=== PATIENT | female | born 1950 | race Caucasian/White ===

== ENCOUNTER 2017-07-02 09:10 | Emergency (ER) | payer MEDICARE, BC, SELFPAY ==
[2017-07-02 09:12] VITALS: BP 189/95; PULSE 111; RESP 28; TEMP 36.6; O2SAT 96; BMI 22.3
--- NOTE | 2017-07-02 09:22 | XR_ITS ---
XR chest 2V COMPARISON: None HISTORY: Chest pain TECHNIQUE: PA and lateral chest FINDINGS: The lung mann are well expanded and appear clear of infiltrate. The cardiac silhouette and vascularity are normal and is no pleural fluid. There are moderate multilevel degenerative changes of the mid and lower thoracic spine. IMPRESSION: Nonacute chest findings
[2017-07-02 09:40] VITALS: PULSE 103; PULSE 108
[2017-07-02 09:42] LABS: Basophils % 0.3 % (0.1-2.0); Eosinophils # 0.3 K/mm3 (0.0-0.4); Eosinophils % 2.5 % (0.1-12.0); Hematocrit 43.8 % (37.0-47.0); Lymphocytes # 1.3 K/mm3 (0.7-4.5); Mean Corpuscular HGB Conc 34.3 g/dL (31.8-35.4); Mean Corpuscular Volume 84.7 fl (81-99); Mean Platelet Volume 7.9 fl (7.4-10.4); Monocytes # 0.6 K/mm3 (0.1-1.0); Monocytes % 5.1 % (1.7-9.3); Neutrophils % 80.2 % (37.0-80.0); Platelet Count 211 K/mm3 (142-424); Red Blood Count 5.18 M/mm3 (4.20-5.40); Red Cell Distribution Width 12.5 % (11.5-17.5); White Blood Count 11.2 K/mm3 (4.8-10.8)
[2017-07-02 10:01] LABS: Lactic Acid 2.3 mmol/L (0.4-2.0)
[2017-07-02 10:03] LABS: Alanine Aminotransferase 33 U/L (12-78); Albumin Level 4.2 gm/dL (3.4-5.0); Albumin/Globulin Ratio 0.9 (1.1-1.8); Alkaline Phosphatase 97 U/L (46-116); Anion Gap 13.9 mEq/L (5-15); Aspartate Amino Transferase 22 U/L (15-37); Bilirubin,Total 0.5 mg/dL (0.2-1.0); Blood Urea Nitrogen 11 mg/dL (7-18); Calcium 9.6 mg/dL (8.5-10.1); Carbon Dioxide 28 mmol/L (21.0-32.0); Chloride 102 mmol/L (98-107); Creatine Kinase 168 U/L (26-192); Creatine Kinase MB 1.7 mg/ml (0.0-3.6); Creatinine Clearance Estimated 52 mL/min (0-300); Estimated Glomerular Filt Rate 63 ml/min (>60); GFR (African American) 76 ML/MIN (>60); Globulin 4.6 gm/dl (1.3-3.2); Glucose 201 mg/dL (74-106); Potassium 3.9 mmoL/L (3.5-5.1); Sodium 140 mmol/L (136-145); Total Protein,Serum 8.8 gm/dL (6.4-8.2); Troponin I < 0.02 ng/ml (0.00-0.06)
--- NOTE | 2017-07-02 10:06 | HMH.EDSOB ---
ED Disposition Clinical Impression: Reactive airway disease with wheezing Qualifiers: Asthma severity: moderate Asthma persistence: persistent Asthma complication type: uncomplicated Qualified Code(s): J45.40 - Moderate persistent asthma, uncomplicated Acute bronchitis Qualifiers: Bronchitis organism: unspecified organism Qualified Code(s): J20.9 - Acute bronchitis, unspecified Diabetes mellitus Qualifiers: Diabetes mellitus type: type 2 Diabetes mellitus custodial insulin use: unspecified terminal supervisor insulin use status Diabetes mellitus complication status: with unspecified complications Qualified Code(s): E11.8 - Type 2 diabetes mellitus with unspecified complications Hypertension Qualifiers: Hypertension type: unspecified secondary hypertension Qualified Code(s): I15.9 - Secondary hypertension, unspecified Disposition: Home, Self-Care Condition on Discharge: Good Instructions: Diabetes, General (Alternative Therapy), High Blood Pressure (Hypertension) (Alternative Therapy), Type 2 Diabetes, DI for Reactive Airway Disease-Adult Additional Instructions: Please follow-up with your family physician next 2 days for additional evaluation, keep record with your resting blood pressure values, read at home, while at rest, take medications as directed. Prescriptions: Albuterol Sulfate [Albuterol HFA Inhaler] 2 puff IH Q4HP PRN #1 inh PRN Reason: Shortness Of Breath Or Wheezing Amlodipine Besylate [Norvasc 5mg tablet] 5 mg PO DAILY #15 tab levoFLOXacin [Levaquin 750mg tablet] 750 mg PO DAILY #7 tab predniSONE [Prednisone 20mg Tab] 20 mg PO TID #15 tab Referrals: Verenice Jack APRN [Primary Care Provider] - Time of Disposition: 10:38 - Critical Care Critical Care Time: No Attestation: On 07/02/17, the high probability of a clinically significant, sudden or life threatening deterioration of the following system(s) required my full and direct attention, intervention and personal management. The time I documented below is in addition to time spent performing reported procedures but includes the following listed in this critical care notation. Medical Decision Making - Medical Records Medical records reviewed: Yes: I reviewed the patient's medical records. - Russ Inquiry Pt receiving controlled substance: No Vital Signs: 07/02/17 09:12 07/02/17 09:40 07/02/17 10:09 Temperature 97.8 F Temperature Source Oral Pulse Rate 103 H Pulse Rate [Right Brachial] 111 H 107 H Respiratory Rate 28 H 20 Blood Pressure Blood Pressure [Right Arm] 189/95 173/79 Blood Pressure Mean [Right Arm] 126 110 Blood Pressure Source Blood Pressure Source [Right Arm] Automatic Cuff Automatic Cuff Blood Pressure Position Blood Pressure Position [Right Arm] Sitting Sitting 02 Sat by Pulse Oximetry 96 95 Oxygen Delivery Method Room Air Room Air 07/02/17 10:41 07/02/17 10:55 Temperature 98.1 F Temperature Source Oral Pulse Rate 90 Pulse Rate [Right Brachial] 105 H Respiratory Rate 18 20 Blood Pressure 162/91 Blood Pressure [Right Arm] 171/87 Blood Pressure Mean [Right Arm] 115 Blood Pressure Source Automatic Cuff Blood Pressure Source [Right Arm] Automatic Cuff Blood Pressure Position Sitting Blood Pressure Position [Right Arm] Sitting 02 Sat by Pulse Oximetry 97 Oxygen Delivery Method Room Air Room Air - Lab Data Lab results reviewed: Yes: I reviewed the patient's lab results. Lab Results 07/02/17 09:30: WBC 11.2 H, RBC 5.18, Hgb 15.0, Hct 43.8, MCV 84.7, MCH 29.0, MCHC 34.3, RDW 12.5, Plt Count 211, MPV 7.9, Neut % (Auto) 80.2 H, Lymph % (Auto) 12.0, [place] % (Auto) 5.1, Eos % (Auto) 2.5, Baso % (Auto) 0.3, Neut # (Auto) 9.0 H, Lymph # (Auto) 1.3, [place] # (Auto) 0.6, Eos # (Auto) 0.3, Baso # (Auto) 0.0 07/02/17 09:30: Sodium 140, Potassium 3.9, Chloride 102, Carbon Dioxide 28, Anion Gap 13.9, BUN 11, Creatinine 0.90, Estimated Creat Clear 52, Estimated GFR 63, Est GFR ( Amer) 76
[2017-07-02 10:09] VITALS: BP 173/79; PULSE 107; RESP 20; O2SAT 95
[2017-07-02 10:41] VITALS: BP 171/87; PULSE 105; RESP 18; O2SAT 97
[2017-07-02 10:55] VITALS: BP 162/91; PULSE 90; RESP 20; TEMP 36.7; O2SAT 98
[2017-07-02 13:38] LABS: Reflex Lactic Add Lactic Reflex
== END 2017-07-02 10:55 | disposition home or self-care (01) ==
PROVIDERS: Emergency Provider Emergency Medicine; Family Provider Family Medicine; PCP Nurse Practitioner
DX: J45.40 Moderate persistent asthma, uncomplicated (principal); J20.9 Acute bronchitis, unspecified; E11.8 Type 2 diabetes mellitus with unspecified complications; I15.8 Other secondary hypertension
CPT/HCPCS: 71046; 80053; 82550; 82553; 83605; 84484; 85025; 87040; 93005; 96374; 99284

== ENCOUNTER → 2017-07-30 08:34 | Outpatient (CLI) | payer MEDICARE, BC, SELFPAY ==
--- NOTE | 2017-07-30 08:38 | CA_ITS ---
PROCEDURE: 2-D M-mode and color Doppler study INDICATIONS FOR THE TEST: Chest pain COPD Heart Murmur Tobacco Smoking Palpitations Fatigue Syncope Edema HypertensionXDiabetes Mellitus Rheumatic Fever SOBXDOE Obesity Hyperlipidemia Family History HD Additional History COUGH PATIENT INFORMATION HEIGHT: 62 WEIGHT:160 GENDER: Female B/P:189/95 2-D/M-MODE INTERPRETATION: 2-D MEASUREMENTS OBSERVED VALUES IN CMS Right Ventricular Dimension (RVDd) 3.0 Interventricular Septum (Thickness)(IVsd) .7 Left Ventricular Internal Dimensions(LVIDd) 3.9 Left Ventricular Posterior Wall (Thickness)(LVPWd) .7 Aortic Root 2.5 Aortic Cusp Separation 1.9 Left Atrial Dimensions (LAD) 2.5 2D 1. Left atrium is mildly enlarged, left ventricle is normal size, there is mild qualitative concentric left ventricular hypertrophy, visually estimated ejection fraction 55% with no obvious regional wall motion abnormality, endocardial surfaces are poorly visualized 2. The right atrium and right ventricle are mildly enlarged with normal contractility. 3. The aortic valve is minimally thickened and fibrosed. 4. The mitral and tricuspid valvular grossly normal. 5. The pulmonic valve is poorly visualized 6. No significant pericardial effusion noted. DOPPLER INTERROGATION: Doppler interrogation of the aortic, mitral and tricuspid valvular presence of mild mitral and tricuspid regurgitation, tricuspid and jet velocity is insufficient for calculation of the right ventricular systolic pressure, grade 1 diastolic dysfunction seen without tissue Doppler evidence of raised left atrial pressure. CONCLUSION: 1. Mildly enlarged left atrium, normal left ventricular size, mild concentric left ventricular hypertrophy, visually estimated ejection fraction 55% with no obvious regional wall motion abnormality, endocardial surface of poorly visualized. Grade 1 diastolic dysfunction seen without tissue Doppler evidence of raised left atrial pressure. 2. Mild mitral and tricuspid regurgitation 3. No significant pericardial effusion noted.
[2017-07-30 10:07] VITALS: PULSE 80; PULSE 86
== END ==
PROVIDERS: Family Provider Family Medicine; PCP Nurse Practitioner; Visit Provider Nurse Practitioner
DX: R06.02 Shortness of breath (principal)
CPT/HCPCS: 93306; 94060; 94640

== ENCOUNTER → 2018-11-28 16:45 | Outpatient (CLI) | payer MEDICARE, BC, SELFPAY ==
--- NOTE | 2018-11-28 | MM_ITS ---
PROCEDURE: MM DIG SCREENING MAMM BI W/CAD CLINICAL INDICATION: Routine screening mammogram no hormones no complains. Noncontributory family history COMPARISON: DIGMAMMS MAMMOGRAM SCREEN-ACCESS LIAISON N/C from 05/12/2008 DIGMAMMS MAMMOGRAM SCREEN-ACCESS LIAISON N/C from 05/19/2009 [facility] DIGITAL MAMM-SCREEN BILATERAL from 08/04/2010 [facility] DIG MAMM-SCREEN DAISY from 08/08/2013 [facility] DIG MAMM-SCREEN DAISY from 11/16/2014 [facility] DIG MAMM-SCREEN DAISY from 12/02/2015 TECHNIQUE: Standard CC and MLO images were obtained. R2 CAD reviewed. FINDINGS: Moderate breast density slight heterogeneous pattern with the mild asymmetry no new dominant or suspicious mass but no suspicious calcifications. Right breast no significant new areas of concern. The fibroglandular elements most notable towards upper-outer quadrant right breast but unchanged since multiple prior studies but stable asymmetry or. Left breast: No significant new areas of concern small focus asymmetric density deep breast M0 view appears similar to studies dating back to 2013. Can be followed safely IMPRESSION: Stable bilateral mammogram with no significant new findings. Bilateral follow-up 1 year recommended BI-RAD Category: 2 Benign Finding(s) FOLLOW-UP: 1YR 1 Year Follow-up (A letter has been sent to the patient regarding results of the study.) Dictated by: Ameya Fuchs MD 11/29/2018 09:27 Signed by: <Electronically signed by Ameya Fuchs MD in [place]> 11/29/2018 09:27
== END ==
PROVIDERS: PCP Nurse Practitioner; Visit Provider Nurse Practitioner
DX: Z12.31 Encounter for screening mammogram for malignant neoplasm of breast (principal)
CPT/HCPCS: 77067

== ENCOUNTER → 2019-11-25 13:25 | Outpatient (POV) | payer MEDICARE, BC, SELFPAY | PROVIDERS: PCP Family Medicine; Visit Provider Dermatology | DX: Z00.00 Encounter for general adult medical examination without abnormal findings (principal) ==

== ENCOUNTER → 2020-08-17 13:05 | Outpatient (POV) | payer MEDICARE, BC, SELFPAY | PROVIDERS: Visit Provider Dermatology | DX: Z00.00 Encounter for general adult medical examination without abnormal findings (principal) ==

== ENCOUNTER → 2021-01-28 13:59 | Outpatient (CLI) | payer MEDICARE, BC, SELFPAY ==
--- NOTE | 2021-01-29 15:09 | PC.NURSE ---
pt called requesting covid results, advised her of positive test and to quarantine for 10 days and to call family Sunday or call back if any further symptoms
== END ==
PROVIDERS: PCP Family Medicine; Visit Provider Nurse Practitioner
DX: Z20.822 Contact with and (suspected) exposure to COVID-19 (principal); U07.1 COVID-19
CPT/HCPCS: C9803; U0003; U0005

== ENCOUNTER 2022-03-18 18:46 | Emergency (ER) | payer MEDICARE, BC, SELFPAY ==
[2022-03-18 18:45] VITALS: BP 156/71; PULSE 77; RESP 18; TEMP 36.4; O2SAT 100; BMI 24.3
--- NOTE | 2022-03-18 18:53 | PC.NURSE ---
DR. PAULSON AT BEDSIDE
--- NOTE | 2022-03-18 19:07 | CT_ITS ---
PROCEDURE INFORMATION: Exam: CT Maxillofacial Without Contrast Exam date and time: 03/18/2022 7:21 PM Age: 71 years old Clinical indication: Injury or trauma; Fall; Laceration; Forehead and nose; Not specified; Additional info: Fall, hit nasal bridge first. Large skin defect TECHNIQUE: Imaging protocol: Computed tomography of the face without contrast. Radiation optimization: All CT scans at this facility use at least one of these dose optimization techniques: automated exposure control; mA and/or kV adjustment per patient size (includes targeted exams where dose is matched to clinical indication); or iterative reconstruction. COMPARISON: CT HEAD/BRAIN WO CON 03/18/2022 7:14 PM FINDINGS: Orbital cavities: Orbits are normal. Globes are unremarkable. Bones/joints: Mildly comminuted fracture of the anterior nasal bone extending right and left of midline, not involving the frontal process of the maxilla. There is all septum is deviated to the patient's left however this appears to be longstanding. Anterior nasal spine is intact. Remaining osseous structures are intact. Marked degenerative changes left TMJ joint with flattening of the condylar head. The Paranasal sinuses: Normal. No air-fluid levels. Soft tissues: Unremarkable. IMPRESSION: Acute, slightly comminuted fracture of the anterior nasal bone.
--- NOTE | 2022-03-18 19:07 | CT_ITS ---
PROCEDURE INFORMATION: Exam: CT Cervical Spine Without Contrast Exam date and time: 03/18/2022 7:14 PM Age: 71 years old Clinical indication: Injury or trauma; Fall; Laceration; Not specified; Additional info: Fall, -loc TECHNIQUE: Imaging protocol: Computed tomography of the cervical spine without contrast. Radiation optimization: All CT scans at this facility use at least one of these dose optimization techniques: automated exposure control; mA and/or kV adjustment per patient size (includes targeted exams where dose is matched to clinical indication); or iterative reconstruction. COMPARISON: No relevant prior studies available. FINDINGS: Bones/joints: Normal alignment. No spondylolisthesis. No fracture or traumatic subluxation. Prominent anterolateral endplate osteophytes midcervical spine suggestive of DISH. As multilevel spondylitic changes most pronounced C6-C7 a contributing to some degree of spinal stenosis. Lungs: Lung apices are normal. Soft tissues: Unremarkable. IMPRESSION: No acute bony abnormalities.
--- NOTE | 2022-03-18 19:07 | CT_ITS ---
PROCEDURE INFORMATION: Exam: CT Head Without Contrast Exam date and time: 03/18/2022 7:14 PM Age: 71 years old Clinical indication: Injury or trauma; Fall; Laceration; Without residual foreign body; Face and forehead; Additional info: Fall, hit head. Nasal briged and scalp lac TECHNIQUE: Imaging protocol: Computed tomography of the head without contrast. Radiation optimization: All CT scans at this facility use at least one of these dose optimization techniques: automated exposure control; mA and/or kV adjustment per patient size (includes targeted exams where dose is matched to clinical indication); or iterative reconstruction. COMPARISON: No relevant prior studies available. FINDINGS: Brain: No intracranial hemorrhage. No mass effect, edema or midline shift. Cortical sulci are unremarkable for age. There are vague areas of decreased attenuation within the periventricular white matter likely secondary to chronic microvascular changes. Cerebral ventricles: No ventriculomegaly. Paranasal sinuses: Visualized sinuses are unremarkable. No fluid levels. Mastoid air cells: Visualized mastoid air cells are well aerated. Bones/joints: Unremarkable. No acute fracture. Soft tissues: Unremarkable. IMPRESSION: No acute intracranial abnormality.
--- NOTE | 2022-03-18 19:14 | PC.NURSE ---
PT TO CT AT THIS TIME
--- NOTE | 2022-03-18 19:58 | PC.NURSE ---
on the phone with at this time.
--- NOTE | 2022-03-18 20:44 | HMH.EDGENADL ---
Discharge Plan Disposition Patient Disposition: Home, Self-Care Condition: Good Prescriptions Prescriptions: New cefadroxil 500 mg capsule 500 mg PO BID 5 Days Qty: 10 0RF No Action levofloxacin [Levaquin] 750 mg tablet 750 mg PO DAILY 7 Days Qty: 7 0RF albuterol sulfate 18 GM HFA aerosol inhaler 2 puff IH Q4HP PRN (Reason: Shortness Of Breath Or Wheezing) Qty: 1 1RF amlodipine 5 MG tablet 5 mg PO DAILY Qty: 15 0RF Referrals Follow up/Referrals: Nathaniel Vazquez MD [Primary Care Provider] - See instructions Clinical Impressions Clinical Impression: Fracture, nasal bone, open Discharge ED Provider: Daniel Carvalho General Adult HPI General Chief complaint: Fall Stated complaint: FALL Time Seen by Provider: 03/18/22 18:50 Mode of Arrival: EMS Source of Information: Patient and EMS Limitations: No Limitations Description of Symptoms (Recalled from ER Triage Doc. by RN): PT BROUGHT IN VIA EMS FOR FALL WITH LACERATION TO BRIDGE OF NOSE AND LACERATION TO BACK OF HEAD. PT IMMOBILIZED ON BACK BOARD AND NECK ROLL History of Present Illness HPI narrative: This is a 71-year-old female presenting with fall from standing. Patient states that she was walking when she tripped, hit her nasal bridge and the lip on curb. Did not lose consciousness. Denies anticoagulation. EMS was called, placed patient on spine board and c-collar and then brought her to [facility]. Currently complaining of 5 out of 10 facial pain that does not radiate, but denies broken teeth, difficulty breathing, neck or back pain, or any other concerning symptoms. Related Data Previous Rx's Medication Instructions Recorded albuterol sulfate 90 mcg/actuation 2 puff IH Q4HP PRN Shortness Of 07/02/17 aerosol inhaler Breath Or Wheezing #1 inh amlodipine 5 mg tablet 5 mg PO DAILY #15 tabs 07/02/17 levofloxacin 750 mg tablet 750 mg PO DAILY 7 days #7 tabs 11/23/18 (Levaquin) cefadroxil 500 mg capsule 500 mg PO BID 5 days #10 caps 03/18/22 Allergies Allergy/AdvReac Type Severity Reaction Status Date / Time NO KNOWN ALLERGIES Allergy Uncoded 04/03/17 14:48 [facility] Disclaimer: The information contained in this section may have been updated after the patient was seen, as this information can be updated by other users. Medical History (Updated 03/18/22 @ 20:56 by Daniel Carvalho MD) Diabetes Hyperlipidemia Hypertension Surgical History (Updated 03/18/22 @ 18:59 by Maeve Morales RN) H/O hand surgery H/O: hysterectomy Hx of cholecystectomy Family History (Updated 03/18/22 @ 18:59 by Maeve Morales RN) Other No significant family history Social History (Updated 03/18/22 @ 19:00 by Maeve Morales RN) Smoking Status: Never smoker alcohol intake: never substance use type: denies use current occupational status: retired Travel in the last 8 weeks: None household members: family housing: house ROS Obtained: Yes All systems reviewed & no additional complaints except as documented Physical Exam General General appearance: alert and in no apparent distress Head Head exam: normocephalic and normal inspection Expanded Head Exam Head exam physical: Present laceration, abrasion and hematoma Comment: 2 cm laceration overlying nasal bridge with exposed bone. 1 cm laceration on upper lip that does not cross vermilion border. Does not enter oral cavity Eye Eye exam: Present normal appearance, PERRL and EOMI ENT ENT exam: Present normal oropharynx, mucous membranes moist, TM's normal bilaterally and normal external ear exam; Absent normal exam Neck Neck exam: Present normal inspection, full ROM and trachea midline; Absent meningismus or lymphadenopathy Chest Chest inspection: Present normal inspection and symmetric chest wall rise; Absent tenderness Respiratory Respiratory exam: Present normal lung sounds bilaterally; Absent respiratory distress Cardiovascular Cardiovascular ex
[2022-03-18 21:57] VITALS: BP 146/67; PULSE 76; RESP 18; TEMP 36.6; O2SAT 99
[2022-03-18 21:58] VITALS: BP 125/78; PULSE 80; RESP 18; TEMP 36.7; O2SAT 98
== END 2022-03-18 21:59 | disposition home or self-care (01) ==
PROVIDERS: Emergency Provider Emergency Medicine; PCP Family Medicine
DX: S01.21XA Laceration without foreign body of nose, initial encounter (principal); S01.511A Laceration without foreign body of lip, initial encounter; R06.02 Shortness of breath; I10 Essential (primary) hypertension; E78.5 Hyperlipidemia, unspecified; E11.9 Type 2 diabetes mellitus without complications; Z79.52 Long term (current) use of systemic steroids; Z79.899 Other long term (current) drug therapy; W01.0XXA Fall on same level from slipping, tripping and stumbling without subsequent striking against object, initial encounter
CPT/HCPCS: 12013; 70450; 70486; 72125; 90471; 90715; 96374; 99284

== ENCOUNTER 2022-07-26 20:19 | Emergency (ER) | payer MEDICARE, BC, SELFPAY ==
[2022-07-26 20:51] VITALS: BP 161/73; PULSE 82; RESP 20; TEMP 36.9; O2SAT 99; BMI 25.7
[2022-07-26 21:18] LABS: Chloride 102 mmol/L (98-107); Potassium 3.7 mmoL/L (3.5-5.1); Sodium 138 mmol/L (136-145)
[2022-07-26 21:20] LABS: Alanine Aminotransferase 17 U/L (12-78); Alkaline Phosphatase 64 U/L (38-126); Amylase 77 U/L (30-110); Anion Gap 11.7 mEq/L (5-15); Aspartate Amino Transferase 28 U/L (14-36); Bilirubin,Total 0.6 mg/dl (0.2-1.3); Blood Urea Nitrogen 10 mg/dl (7-17); Carbon Dioxide 28 mmol/L (22.0-30.0); Creatinine Clearance Estimated 55 mL/min (50-200); Estimated Glomerular Filt Rate 82 ml/min (>60); GFR (African American) 100 ML/MIN (>60)
[2022-07-26 21:21] LABS: Albumin Level 4.5 g/dl (3.5-5.0); Albumin/Globulin Ratio 1.5 (1.1-1.8); Calcium 8.9 mg/dl (8.4-10.2); Globulin 3.1 g/dL (1.3-3.2); Glucose 131 mg/dl (74-100); Lipase 161 U/L (23-300); Total Protein,Serum 7.6 g/dl (6.3-8.2)
--- NOTE | 2022-07-26 21:24 | CT_ITS ---
PROCEDURE INFORMATION: Exam: CT Abdomen And Pelvis With Contrast Exam date and time: 07/26/2022 9:35 PM Age: 71 years old Clinical indication: Abdominal pain; Localized; Upper; Prior surgery; Surgery type: Cholecystectomy, hysterectomy; Additional info: Abd pain TECHNIQUE: Imaging protocol: Computed tomography of the abdomen and pelvis with contrast. Radiation optimization: All CT scans at this facility use at least one of these dose optimization techniques: automated exposure control; mA and/or kV adjustment per patient size (includes targeted exams where dose is matched to clinical indication); or iterative reconstruction. Contrast material: ISOVUE; Contrast volume: 75 ml; Contrast route: IV; REPORTING DATA: Count of CT and Cardiac NM exams in prior 12 months: This patient has received 3 known CTs and 0 known cardiac nuclear medicine studies in the 12 months prior to the current study. COMPARISON: CR CXR2V XR chest 2V 07/02/2017 9:36 AM FINDINGS: Liver: Normal. No mass. Gallbladder and bile ducts: Post cholecystectomy change. Pancreas: Normal enhancement. No ductal dilation. Spleen: No splenomegaly. Adrenal glands: No mass. Kidneys and ureters: 11 mm right renal cyst. No hydronephrosis. Stomach and bowel: Diverticulosis coli without evidence for diverticulitis. Moderate to large stool burden within the colon. No bowel obstruction. Appendix: No evidence of appendicitis. Intraperitoneal space: No significant fluid collection. No free air. Vasculature: Calcified aortic atherosclerosis. No aneurysm. Lymph nodes: No enlarged lymph nodes. Urinary bladder: No acute abnormality. Reproductive: Status post hysterectomy. Bones/joints: Degenerative changes of the spine. No fracture. Soft tissues: No soft tissue swelling. IMPRESSION: No acute findings. Chronic and incidental findings described above.
--- NOTE | 2022-07-26 21:24 | HMH.EDABDPAI ---
Discharge Plan Disposition Patient Disposition: Home, Self-Care Chief Complaint: Abdominal Pain Prescriptions Prescriptions: No Action levofloxacin [Levaquin] 750 mg tablet 750 mg PO DAILY 7 Days Qty: 7 0RF albuterol sulfate 18 GM HFA aerosol inhaler 2 puff IH Q4HP PRN (Reason: Shortness Of Breath Or Wheezing) Qty: 1 1RF amlodipine 5 MG tablet 5 mg PO DAILY Qty: 15 0RF cefadroxil 500 mg capsule 500 mg PO BID 5 Days Qty: 10 0RF Referrals Follow up/Referrals: Nathaniel Vazquez MD [Primary Care Provider] - See instructions Clinical Impressions Clinical Impression: Abdominal pain Instructions Patient Instructions: DI for Acute Abdominal Pain Discharge ED Provider: Johnna (ED)Azeem Abdominal Pain HPI General Chief Complaint: Abdominal Pain Stated Complaint: stomach pain Time Seen by Provider: 07/26/22 21:24 Mode of Arrival: Ambulatory Source of Information: Patient, Spouse and Medical Record Limitations: No Limitations Description of Symptoms (Recalled from ER Triage Doc. by RN): Pt complains of intermittent abdominal pain 11/23 that started at 0400 this morning. Pt denies any N/V.D Pt states she took some Pepto Bismol that helped, LBM today and normal. History of Present Illness HPI narrative: abd pain which started this am has been intermittent uncertain as to inc or dec factors - no fever or diarrhea complaint: abdominal pain Onset (ago): hour(s) Consistency: intermittent Location: epigastric Severity: moderate Associated symptoms: vomiting Related Data Previous Rx's Medication Instructions Recorded albuterol sulfate 90 mcg/actuation 2 puff IH Q4HP PRN Shortness Of 07/02/17 aerosol inhaler Breath Or Wheezing #1 inh amlodipine 5 mg tablet 5 mg PO DAILY #15 tabs 07/02/17 levofloxacin 750 mg tablet 750 mg PO DAILY 7 days #7 tabs 11/23/18 (Levaquin) cefadroxil 500 mg capsule 500 mg PO BID 5 days #10 caps 03/18/22 Allergies Allergy/AdvReac Type Severity Reaction Status Date / Time NO KNOWN ALLERGIES Allergy Uncoded 04/03/17 14:48 [facility] Disclaimer: The information contained in this section may have been updated after the patient was seen, as this information can be updated by other users. Medical History (Updated 04/13/23 @ 04:10 by Azeem VEGA)MD) Diabetes Hyperlipidemia Hypertension Surgical History (Updated 03/18/22 @ 18:59 by Maeve Morales, AKBAR) H/O hand surgery H/O: hysterectomy Hx of cholecystectomy Family History (Updated 03/18/22 @ 18:59 by Maeve Morales, RN) Other No significant family history Social History (Updated 03/18/22 @ 19:00 by Maeve Morales, AKBAR) Smoking Status: Never smoker alcohol intake: never substance use type: denies use current occupational status: retired Travel in the last 8 weeks: None household members: family housing: house ROS Obtained: Yes All systems reviewed & no additional complaints except as documented Physical Exam General General appearance: alert Head Head exam: normocephalic Eye Eye exam: Present PERRL and EOMI; Absent scleral icterus ENT ENT exam: Present mucous membranes moist Neck Neck exam: Present trachea midline Respiratory Respiratory exam: Absent respiratory distress Cardiovascular Cardiovascular exam: Present regular rate Abdominal Exam Abdominal exam: Present soft and tenderness; Absent guarding, rebound or rigidity Abdominal tenderness: Present epigastrium and moderate Extremities Exam Extremities exam: Present full ROM Neurological Exam Neurological exam: Present alert, oriented X3 and CN II-XII intact; Absent motor sensory deficit Psychiatric Psychiatric exam: Present normal affect Skin Skin exam: Absent rash Medical Decision Making Medical Records Medical records reviewed: Yes I reviewed the patient's medical records. Russ Inquiry Pt receiving controlled substance: No Vital Signs: 07/26/22 20:51 07/27/22 00:42 07/27/22 00:42
[2022-07-26 21:38] LABS: Basophils # 0.1 K/mm3 (0-0.2); Basophils % 1.1 % (0.1-2.0); Eosinophils # 0.2 K/mm3 (0.0-0.4); Eosinophils % 2.8 % (0.1-12.0); Lymphocytes # 2.8 K/mm3 (0.7-4.5); Lymphocytes % 43.6 % (10-50); Mean Corpuscular HGB Conc 32.6 g/dL (31.8-35.4); Mean Corpuscular Volume 88.7 fl (81-99); Monocytes # 0.4 K/mm3 (0.1-1.0); Monocytes % 6.7 % (1.7-9.3); Neutrophils # 2.9 K/mm3 (1.8-7.8); Neutrophils % 45.7 % (37.0-80.0); Platelet Count 241 K/mm3 (142-424); Red Blood Count 4.84 M/mm3 (4.20-5.40); White Blood Count 6.4 K/mm3 (4.8-10.8)
[2022-07-27 00:42] VITALS: BP 128/84; PULSE 84; RESP 20; TEMP 36.9
[2022-07-27 01:43] LABS: Microscopic, Urine URINE MICROSCOPIC (MICROSCOPIC)
[2022-07-27 02:03] LABS: Appearance,Urine Clear (Clear); Color,Urine Yellow (Yellow); PH,Urine 6.5 (5.0-8.5)
[2022-07-27 02:04] LABS: Bacteria,Urine Trace /lpf; Bilirubin,Urine Negative (Negative); Blood, Urine Negative (Negative); Glucose,Urine (UA) Negative (Negative); Ketones,Urine Negative (Negative); Leukocyte Esterase,Urine Negative (Negative); Nitrate,Urine Negative (Negative); Protein,Urine Negative (Negative); Specific Gravity, Urine <= 1.005 (1.005-1.030); Urobilinogen,Urine 0.2 EU/dl (0.2); WBC,Urine Occasional #/hpf (0-3)
== END 2022-07-26 21:30 | disposition home or self-care (01) ==
PROVIDERS: Emergency Provider Emergency Medicine; PCP Family Medicine
DX: R10.13 Epigastric pain (principal)
CPT/HCPCS: 74177; 80053; 81001; 82150; 83690; 85025; 96360; 96374; 96375; 99284; 99285; J0131; Q9967

== ENCOUNTER 2023-12-11 15:28 | Outpatient (CLI) | payer MEDICARE, BC, SELFPAY ==
--- NOTE | 2023-12-11 15:35 | XR_ITS ---
FINAL REPORT TECHNIQUE: Chest PA & Lateral CLINICAL HISTORY: ACUTE COUGH EXERTIONAL SHORTNESS OF BREATH FINDINGS: 2 views of the chest were performed. The heart size is normal. The mediastinum is within normal limits. There is no acute cardiopulmonary process. There are no pleural effusions. There is no pneumothorax. The bony thorax appears intact. IMPRESSION: No acute cardiopulmonary process. Reviewed, Interpreted and Dictated by Osei Dee MD Transcribed by Samantha Vazquez Authenticated and [facility]
== END 2023-12-11 23:59 | disposition home or self-care (01) ==
LOC: RAD 15:29
PROVIDERS: PCP Family Medicine; Visit Provider Nurse Practitioner
DX: R06.02 Shortness of breath (principal); R05.9 Cough, unspecified
CPT/HCPCS: 71046

== ENCOUNTER 2023-12-13 08:07 | Outpatient (CLI) | payer MEDICARE, BC, SELFPAY ==
[2023-12-13] VITALS (19 sets, daily range): BP systolic 123–151; BP diastolic 47–79; PULSE 75–85; RESP 16–17; TEMP 36–36.5; O2SAT 96–100; BMI 27.4
[2023-12-13 08:38] LABS: Hematocrit 21.8 % (37.0-47.0)
[2023-12-13 08:40] LABS: Hemoglobin 6.5 g/dL (12.2-16.2)
[2023-12-13] MEDS: 0.9 % SODIUM CHLORIDE 250 ML 25 ML IV (10:37)
--- NOTE | 2023-12-13 11:15 | PC.NURSE ---
1105-BLOOD TRANSFUSION STARTED AT 100 ML/HR AT THIS TIME.
--- NOTE | 2023-12-13 11:39 | PC.NURSE ---
1135-INCREASED RATE TO 150 ML/HR AT THIS TIME.
--- NOTE | 2023-12-13 12:44 | PC.NURSE ---
1205-INCREASED RATE TO 200 ML/HR AT THIS TIME.
--- NOTE | 2023-12-13 13:23 | PC.NURSE ---
RATE WAS INCREASED TO 250 ML/HR AT 1235.
--- NOTE | 2023-12-13 13:45 | PC.NURSE ---
1342-BLOOD TRANSFUSION STARTED AT 100 ML/HR AT THIS TIME.
--- NOTE | 2023-12-13 14:43 | PC.NURSE ---
1412-INCREASED RATE TO 150 ML/HR AT THIS TIME.
--- NOTE | 2023-12-13 15:14 | PC.NURSE ---
1442-INCREASED RATE TO 200 ML/HR AT THIS TIME.
== END 2023-12-13 16:37 | disposition home or self-care (01) ==
LOC: INF 08:08
PROVIDERS: PCP Family Medicine; Visit Provider Nurse Practitioner
DX: D64.9 Anemia, unspecified (principal)
CPT/HCPCS: 36430; 85014; 85018; 86850; P9016

== ENCOUNTER 2023-12-20 15:48 | Outpatient (CLI) | payer MEDICARE, BC, SELFPAY ==
[2023-12-20 16:11] LABS: Basophils % 1.4 % (0.1-2.0); Eosinophils % 1.7 % (0.1-12.0); Hematocrit 27.4 % (37.0-47.0); Hemoglobin 8.5 g/dL (12.2-16.2); Lymphocytes # 1.5 K/mm3 (0.7-4.5); Lymphocytes % 77.6 % (10-50); Mean Corpuscular HGB Conc 31.2 g/dL (31.8-35.4); Mean Corpuscular Hemoglobin 28.5 pg (27.0-31.2); Mean Corpuscular Volume 91.3 fl (81-99); Mean Platelet Volume 7.7 fl (7.4-10.4); Monocytes # 0.1 K/mm3 (0.1-1.0); Monocytes % 3.1 % (1.7-9.3); Neutrophils # 0.3 K/mm3 (1.8-7.8); Neutrophils % 16.3 % (37.0-80.0); Platelet Count 97 K/mm3 (142-424)
[2023-12-20 16:13] LABS: MANUAL DIFFERENTIAL MANUAL DIFFERENTIAL (MANUAL DIFF)
[2023-12-20 16:20] LABS: INR 1.02 (0.9-1.1); Prothrombin Time 11.4 seconds (10.1-12.5)
[2023-12-20 16:58] LABS: Lymphocytes % 69 % (10-50); Monocytes % 7 % (2-9); Myelocytes % 8 (0-1); Neutrophils % 16 % (42-76); Total Cells Counted 100
[2023-12-20 16:59] LABS: Acanthocytes 1+; Ovalocytes 1+; Platelet Estimate Normal; Poikilocytosis 1+; Tear Drop Cells 1+
[2023-12-20 17:00] LABS: Target Cells 1+
== END 2023-12-20 23:59 | disposition home or self-care (01) ==
LOC: LAB 15:50
PROVIDERS: Nurse Practitioner; PCP Family Medicine; Visit Provider Family Medicine
DX: D69.1 Qualitative platelet defects (principal)
CPT/HCPCS: 36415; 85007; 85025; 85027; 85610

== ENCOUNTER 2023-12-25 12:26 | Outpatient (CLI) | payer MEDICARE, BC, SELFPAY ==
[2023-12-25 13:20] LABS: Basophils % 0.6 % (0.1-2.0); Eosinophils % 0.8 % (0.1-12.0); Hematocrit 31.4 % (37.0-47.0); Hemoglobin 9.5 g/dL (12.2-16.2); Lymphocytes # 1.3 K/mm3 (0.7-4.5); Lymphocytes % 80.4 % (10-50); Mean Corpuscular HGB Conc 30.2 g/dL (31.8-35.4); Mean Corpuscular Hemoglobin 27.3 pg (27.0-31.2); Mean Corpuscular Volume 90.5 fl (81-99); Mean Platelet Volume 7.7 fl (7.4-10.4); Monocytes # 0.1 K/mm3 (0.1-1.0); Monocytes % 3.5 % (1.7-9.3); Neutrophils # 0.2 K/mm3 (1.8-7.8); Platelet Count 178 K/mm3 (142-424); Red Blood Count 3.47 M/mm3 (4.20-5.40); Red Cell Distribution Width 23.4 % (11.5-17.5); Reticulocyte % (Auto) 1.2 % (0.9-3.2); White Blood Count 1.6 K/mm3 (4.8-10.8)
[2023-12-25 13:23] LABS: Neutrophils % 14.6 % (37.0-80.0)
[2023-12-25 13:24] LABS: MANUAL DIFFERENTIAL MANUAL DIFFERENTIAL (MANUAL DIFF)
[2023-12-25 14:07] LABS: Alanine Aminotransferase 19 U/L (12-78); Albumin Level 4.2 g/dl (3.5-5.0); Albumin/Globulin Ratio 1.4 (1.1-1.8); Alkaline Phosphatase 35 U/L (38-126); Anion Gap 12.2 mEq/L (5-15); Aspartate Amino Transferase 31 U/L (14-36); Bilirubin,Total 0.6 mg/dl (0.2-1.3); Blood Urea Nitrogen 23 mg/dl (7-17); Calcium 9.9 mg/dl (8.4-10.2); Carbon Dioxide 27 mmol/L (22.0-30.0); Chloride 102 mmol/L (98-107); Estimated Glomerular Filt Rate 44 ml/min (>60); GFR (African American) 53 ML/MIN (>60); Globulin 3.1 g/dL (1.3-3.2); Glucose 111 mg/dl (74-100); Lactate Dehydrogenase 182 U/L (313-618); Potassium 4.2 mmoL/L (3.5-5.1); Sodium 137 mmol/L (136-145); Total Protein,Serum 7.3 g/dl (6.3-8.2); Uric Acid 3.3 mg/dl (2.5-6.2)
[2023-12-25 14:15] LABS: Lymphocytes % 94 % (10-50); Macrocytosis 1+; Monocytes % 1 % (2-9); Neutrophils % 5 % (42-76); Platelet Estimate Normal; Total Cells Counted 100
[2023-12-25 14:42] LABS: Iron 244 ug/dL (37-170)
[2023-12-25 14:51] LABS: Total Iron Binding Capacity 485 ug/dL (265-497)
[2023-12-25 15:13] LABS: Vitamin B12 772 pg/mL (239-931)
[2023-12-25 15:18] LABS: Ferritin 626 ng/ml (11.1-264)
[2023-12-25 15:19] LABS: Folate > 20.00 ng/mL
[2023-12-27 12:49] LABS: Peripheral Smear Review Scanned Result
[2023-12-27 13:19] LABS: Haptoglobin 80 mg/dL (42-346)
== END 2023-12-25 23:59 | disposition home or self-care (01) ==
LOC: LAB 12:35
PROVIDERS: PCP Family Medicine; Visit Provider Internal Medicine Medical Oncology
DX: D64.9 Anemia, unspecified (principal); D50.9 Iron deficiency anemia, unspecified
CPT/HCPCS: 36415; 80053; 82607; 82728; 82746; 83010; 83540; 83550; 83615; 84550; 85007; 85025; 85027; 85044; 86880

== ENCOUNTER 2024-01-01 12:42 | Outpatient (CLI) | payer MEDICARE, BC, SELFPAY ==
[2024-01-01 12:44] VITALS: BMI 26.6
[2024-01-01 13:13] LABS: Basophils % 0.4 % (0.1-2.0); Eosinophils % 2.2 % (0.1-12.0); Hematocrit 26.3 % (37.0-47.0); Lymphocytes # 1.6 K/mm3 (0.7-4.5); Lymphocytes % 76.6 % (10-50); Mean Corpuscular HGB Conc 30.3 g/dL (31.8-35.4); Mean Corpuscular Hemoglobin 27.1 pg (27.0-31.2); Mean Corpuscular Volume 89.4 fl (81-99); Mean Platelet Volume 6.8 fl (7.4-10.4); Monocytes # 0.1 K/mm3 (0.1-1.0); Monocytes % 6.2 % (1.7-9.3); Neutrophils # 0.3 K/mm3 (1.8-7.8); Platelet Count 163 K/mm3 (142-424); Red Blood Count 2.95 M/mm3 (4.20-5.40)
[2024-01-01 13:20] LABS: Neutrophils % 14.5 % (37.0-80.0)
[2024-01-01 13:21] LABS: MANUAL DIFFERENTIAL MANUAL DIFFERENTIAL (MANUAL DIFF)
[2024-01-01 13:23] LABS: Albumin Level 4.4 g/dl (3.5-5.0); Chloride 105 mmol/L (98-107)
[2024-01-01 13:24] LABS: Potassium 3.6 mmoL/L (3.5-5.1); Sodium 137 mmol/L (136-145)
[2024-01-01 13:26] LABS: Alanine Aminotransferase 20 U/L (12-78); Alkaline Phosphatase 40 U/L (38-126); Anion Gap 10.6 mEq/L (5-15); Aspartate Amino Transferase 28 U/L (14-36); Bilirubin,Total 0.5 mg/dl (0.2-1.3); Blood Urea Nitrogen 20 mg/dl (7-17); Carbon Dioxide 25 mmol/L (22.0-30.0); Creatinine Clearance Estimated 52 mL/min (50-200); Estimated Glomerular Filt Rate 54 ml/min (>60); GFR (African American) 66 ML/MIN (>60)
[2024-01-01 13:27] LABS: Albumin/Globulin Ratio 1.6 (1.1-1.8); Calcium 9.3 mg/dl (8.4-10.2); Globulin 2.8 g/dL (1.3-3.2); Glucose 213 mg/dl (74-100); Total Protein,Serum 7.2 g/dl (6.3-8.2)
[2024-01-01 15:53] LABS: Lymphocytes % 86 % (10-50); Neutrophils % 14 % (42-76); Platelet Estimate Normal; RBC Morphology Normal; Total Cells Counted 100
== END 2024-01-01 13:10 | disposition home or self-care (01) ==
LOC: INF 12:43
PROVIDERS: PCP Family Medicine; Visit Provider Internal Medicine Medical Oncology
DX: C92.60 Acute myeloid leukemia with 11q23-abnormality not having achieved remission (principal)
CPT/HCPCS: 36415; 80053; 85007; 85025; 85027

== ENCOUNTER 2024-01-10 08:15 | Outpatient (CLI) | payer MEDICARE, BC, SELFPAY ==
[2024-01-10 08:22] VITALS: BMI 26.6
[2024-01-10 08:46] LABS: Basophils # 0.2 K/mm3 (0-0.2); Basophils % 3.7 % (0.1-2.0); Eosinophils # 0.1 K/mm3 (0.0-0.4); Eosinophils % 1.6 % (0.1-12.0); Hematocrit 26.4 % (37.0-47.0); Hemoglobin 8.1 g/dL (12.2-16.2); Lymphocytes # 2.8 K/mm3 (0.7-4.5); Lymphocytes % 59.4 % (10-50); Mean Corpuscular HGB Conc 30.8 g/dL (31.8-35.4); Mean Corpuscular Hemoglobin 27.3 pg (27.0-31.2); Mean Corpuscular Volume 88.5 fl (81-99); Mean Platelet Volume 12.2 fl (7.4-10.4); Monocytes # 0.2 K/mm3 (0.1-1.0); Monocytes % 5.2 % (1.7-9.3); Neutrophils # 1.6 K/mm3 (1.8-7.8); Neutrophils % 33.8 % (37.0-80.0); Platelet Count 262 K/mm3 (142-424); Red Blood Count 2.98 M/mm3 (4.20-5.40); White Blood Count 4.7 K/mm3 (4.8-10.8)
[2024-01-10 08:50] LABS: Red Cell Distribution Width 25.3 % (11.5-17.5)
[2024-01-10 08:51] LABS: MANUAL DIFFERENTIAL MANUAL DIFFERENTIAL (MANUAL DIFF)
--- NOTE | 2024-01-10 08:51 | PC.NURSE ---
01/10/24 0840 Venipuncture performed to pt's rt wrist x 1 stick using a butterfly access needle-blood drawn. Needle withdrawn and site secured with 2x2 gauze and coban.
[2024-01-10 08:53] LABS: Albumin Level 4.6 g/dl (3.5-5.0); Chloride 107 mmol/L (98-107); Potassium 3.6 mmoL/L (3.5-5.1); Sodium 137 mmol/L (136-145)
[2024-01-10 08:56] LABS: Alanine Aminotransferase 21 U/L (12-78); Albumin/Globulin Ratio 1.5 (1.1-1.8); Alkaline Phosphatase 48 U/L (38-126); Anion Gap 10.6 mEq/L (5-15); Aspartate Amino Transferase 28 U/L (14-36); Bilirubin,Total 0.6 mg/dl (0.2-1.3); Blood Urea Nitrogen 13 mg/dl (7-17); Carbon Dioxide 23 mmol/L (22.0-30.0); Creatinine Clearance Estimated 52 mL/min (50-200); Estimated Glomerular Filt Rate 70 ml/min (>60); GFR (African American) 85 ML/MIN (>60); Globulin 3.1 g/dL (1.3-3.2); Total Protein,Serum 7.7 g/dl (6.3-8.2)
[2024-01-10 08:57] LABS: Calcium 9.8 mg/dl (8.4-10.2); Glucose 178 mg/dl (74-100)
[2024-01-10 09:50] LABS: Lymphocytes % 70 % (10-50); Monocytes % 5 % (2-9); Neutrophils % 25 % (42-76); Nucleated Red Blood Cells 4; Platelet Estimate Normal; RBC Morphology Normal; Total Cells Counted 100
== END 2024-01-10 08:45 | disposition home or self-care (01) ==
LOC: INF 08:16
PROVIDERS: PCP Family Medicine; Visit Provider Internal Medicine Medical Oncology
DX: C92.00 Acute myeloblastic leukemia, not having achieved remission (principal)
CPT/HCPCS: 36415; 80053; 85007; 85025; 85027

== ENCOUNTER 2024-01-17 15:03 | Outpatient (CLI) | payer MEDICARE, BC, SELFPAY ==
[2024-01-17 15:10] VITALS: BMI 26.6
[2024-01-17 15:31] LABS: Albumin Level 4.2 g/dl (3.5-5.0); Chloride 101 mmol/L (98-107); Potassium 3.9 mmoL/L (3.5-5.1); Sodium 135 mmol/L (136-145)
[2024-01-17 15:33] LABS: Basophils % 1.5 % (0.1-2.0); Blood Urea Nitrogen 19 mg/dl (7-17); Creatinine Clearance Estimated 52 mL/min (50-200); Eosinophils # 0.1 K/mm3 (0.0-0.4); Eosinophils % 2.9 % (0.1-12.0); Estimated Glomerular Filt Rate 54 ml/min (>60); GFR (African American) 66 ML/MIN (>60); Hematocrit 23.1 % (37.0-47.0); Lymphocytes # 1.9 K/mm3 (0.7-4.5); Lymphocytes % 72.4 % (10-50); Mean Corpuscular HGB Conc 29.8 g/dL (31.8-35.4); Mean Corpuscular Volume 87.2 fl (81-99); Mean Platelet Volume 6.8 fl (7.4-10.4); Monocytes # 0.1 K/mm3 (0.1-1.0); Monocytes % 5.3 % (1.7-9.3); Neutrophils # 0.5 K/mm3 (1.8-7.8); Neutrophils % 17.9 % (37.0-80.0); Platelet Count 116 K/mm3 (142-424); Red Blood Count 2.65 M/mm3 (4.20-5.40); Red Cell Distribution Width 24.5 % (11.5-17.5); White Blood Count 2.6 K/mm3 (4.8-10.8)
[2024-01-17 15:34] LABS: Alanine Aminotransferase 18 U/L (12-78); Albumin/Globulin Ratio 1.6 (1.1-1.8); Alkaline Phosphatase 37 U/L (38-126); Anion Gap 11.9 mEq/L (5-15); Aspartate Amino Transferase 30 U/L (14-36); Bilirubin,Total 0.6 mg/dl (0.2-1.3); Calcium 9.5 mg/dl (8.4-10.2); Carbon Dioxide 26 mmol/L (22.0-30.0); Globulin 2.7 g/dL (1.3-3.2); Glucose 145 mg/dl (74-100); Total Protein,Serum 6.9 g/dl (6.3-8.2)
[2024-01-17 15:35] LABS: Hemoglobin 6.9 g/dL (12.2-16.2)
[2024-01-17 15:37] LABS: MANUAL DIFFERENTIAL MANUAL DIFFERENTIAL (MANUAL DIFF)
[2024-01-17 16:24] LABS: Eosinophils % 1 % (0-3); Lymphocytes % 85 % (10-50); Monocytes % 2 % (2-9); Neutrophils % 12 % (42-76); Total Cells Counted 100
[2024-01-17 16:25] LABS: Acanthocytes 1+; Anisocytosis 2+; Hypochromasia 2+; Macrocytosis 1+; Microcytosis 2+; Platelet Estimate Slight Decrease; Schistocytes 1+; Tear Drop Cells 1+
--- NOTE | 2024-01-17 16:37 | PC.NURSE ---
01/17/24 1510 Venipuncture performed to pt's rt ac x 1 stick using a butterfly access needle per Brielle Scott RN-blood drawn for labs. Needle withdrawn and site secured with 2x2 gauze and coban. Pt will stay with staff and await results to determine poc.
--- NOTE | 2024-01-17 17:38 | PC.NURSE ---
lab called regarding pt's type and cross/screen. pt is to come in for tranfusion tomorrow to infusion.
== END 2024-01-17 15:45 | disposition home or self-care (01) ==
LOC: INF 15:04
PROVIDERS: Internal Medicine Medical Oncology; PCP Family Medicine
DX: C92.00 Acute myeloblastic leukemia, not having achieved remission (principal)
CPT/HCPCS: 36415; 80053; 85007; 85025; 85027; 86850

== ENCOUNTER 2024-01-18 09:23 | Outpatient (CLI) | payer MEDICARE, BC, SELFPAY ==
[2024-01-18] VITALS (12 sets, daily range): BP systolic 117–135; BP diastolic 47–55; PULSE 79–89; RESP 16–20; TEMP 36.4–36.8; O2SAT 98–100; BMI 26.7
== END 2024-01-18 17:32 | disposition home or self-care (01) ==
LOC: INF 09:25
PROVIDERS: PCP Family Medicine; Visit Provider Internal Medicine Medical Oncology
DX: C92.00 Acute myeloblastic leukemia, not having achieved remission (principal)
CPT/HCPCS: 36430; P9016

== ENCOUNTER 2024-01-23 09:05 | Outpatient (CLI) | payer MEDICARE, BC, SELFPAY ==
[2024-01-23 09:09] VITALS: BMI 26.6
[2024-01-23 09:31] LABS: Basophils % 0.6 % (0.1-2.0); Eosinophils % 0.8 % (0.1-12.0); Hemoglobin 8.2 g/dL (12.2-16.2); Lymphocytes # 1.1 K/mm3 (0.7-4.5); Mean Corpuscular HGB Conc 31.6 g/dL (31.8-35.4); Mean Corpuscular Volume 82.5 fl (81-99); Mean Platelet Volume 7.8 fl (7.4-10.4); Monocytes # 0.1 K/mm3 (0.1-1.0); Monocytes % 3.7 % (1.7-9.3); Neutrophils # 0.2 K/mm3 (1.8-7.8); Platelet Count 60 K/mm3 (142-424); Red Blood Count 3.15 M/mm3 (4.20-5.40); Red Cell Distribution Width 23.9 % (11.5-17.5); White Blood Count 1.4 K/mm3 (4.8-10.8)
[2024-01-23 09:32] LABS: Neutrophils % 12.9 % (37.0-80.0)
[2024-01-23 09:33] LABS: MANUAL DIFFERENTIAL MANUAL DIFFERENTIAL (MANUAL DIFF)
[2024-01-23 09:35] LABS: Chloride 103 mmol/L (98-107); Potassium 3.8 mmoL/L (3.5-5.1); Sodium 137 mmol/L (136-145)
[2024-01-23 09:37] LABS: Blood Urea Nitrogen 15 mg/dl (7-17); Creatinine Clearance Estimated 52 mL/min (50-200); Estimated Glomerular Filt Rate 61 ml/min (>60); GFR (African American) 74 ML/MIN (>60)
[2024-01-23 09:38] LABS: Alanine Aminotransferase 18 U/L (12-78); Albumin/Globulin Ratio 1.5 (1.1-1.8); Alkaline Phosphatase 24 U/L (38-126); Anion Gap 13.8 mEq/L (5-15); Aspartate Amino Transferase 29 U/L (14-36); Bilirubin,Total 0.8 mg/dl (0.2-1.3); Calcium 9.5 mg/dl (8.4-10.2); Carbon Dioxide 24 mmol/L (22.0-30.0); Globulin 2.6 g/dL (1.3-3.2); Glucose 215 mg/dl (74-100); Total Protein,Serum 6.6 g/dl (6.3-8.2)
[2024-01-23 11:31] LABS: Eosinophils % 3 % (0-3); Lymphocytes % 89 % (10-50); Myelocytes % 4 (0-1); Neutrophils % 1 % (42-76); Nucleated Red Blood Cells 1; Total Cells Counted 100
[2024-01-23 11:32] LABS: Anisocytosis 3+; Hypochromasia 3+; Schistocytes 2+
[2024-01-23 11:33] LABS: Platelet Estimate Marked Decrease
[2024-01-23 11:34] LABS: Macrocytosis 1+; Microcytosis 1+
--- NOTE | 2024-01-23 14:53 | PC.NURSE ---
01/23/24 0915 Pt presents today to have labs drawn. Pt was seen at for an appt with Dr. Mckinney for f/u after bone marrow biopsy last week and pt was scheduled to have pac placed surgically. Pac noted in place to pt's rt chest and drsg cdi. Venipuncture performed today to pt's lt ac x 1 stick using a butterfly access needle per Amira Link RN and blood drawn for labs as ordered per md. Needle withdrawn afterward and site secured with 2x2 gauze and coban. Lab specimen taken to lab for analysis. Pt will await results of labs to determine if any further intervention is needed.
== END 2024-01-23 09:40 | disposition home or self-care (01) ==
LOC: INF 09:06
PROVIDERS: PCP Family Medicine; Visit Provider Internal Medicine Medical Oncology
DX: C92.00 Acute myeloblastic leukemia, not having achieved remission (principal)
CPT/HCPCS: 36415; 80053; 85007; 85025; 85027

== ENCOUNTER 2024-01-25 08:58 | Outpatient (CLI) | payer MEDICARE, BC, SELFPAY ==
[2024-01-25 09:08] VITALS: BMI 26.6
--- NOTE | 2024-01-25 09:15 | PC.NURSE ---
0915-k.felipe rn collected labs via venipuncture stick x 2 in left forearm;pt to wait on labs for possible ;blood transfusion or potassium replacement
[2024-01-25 09:25] LABS: Eosinophils % 1.1 % (0.1-12.0); Hematocrit 25.4 % (37.0-47.0); Hemoglobin 8.2 g/dL (12.2-16.2); Lymphocytes # 1.1 K/mm3 (0.7-4.5); Lymphocytes % 82.5 % (10-50); Mean Corpuscular HGB Conc 32.2 g/dL (31.8-35.4); Mean Corpuscular Hemoglobin 26.2 pg (27.0-31.2); Mean Corpuscular Volume 81.6 fl (81-99); Mean Platelet Volume 7.8 fl (7.4-10.4); Monocytes % 2.9 % (1.7-9.3); Neutrophils # 0.2 K/mm3 (1.8-7.8); Platelet Count 76 K/mm3 (142-424); Red Blood Count 3.12 M/mm3 (4.20-5.40); Red Cell Distribution Width 24.1 % (11.5-17.5); White Blood Count 1.3 K/mm3 (4.8-10.8)
[2024-01-25 09:27] LABS: MANUAL DIFFERENTIAL MANUAL DIFFERENTIAL (MANUAL DIFF); Neutrophils % 12.5 % (37.0-80.0)
[2024-01-25 09:29] LABS: Chloride 106 mmol/L (98-107)
[2024-01-25 09:30] LABS: Potassium 3.6 mmoL/L (3.5-5.1); Sodium 138 mmol/L (136-145)
[2024-01-25 09:32] LABS: Blood Urea Nitrogen 17 mg/dl (7-17); Creatinine Clearance Estimated 52 mL/min (50-200); Estimated Glomerular Filt Rate 61 ml/min (>60); GFR (African American) 74 ML/MIN (>60)
[2024-01-25 09:33] LABS: Alanine Aminotransferase 17 U/L (12-78); Alkaline Phosphatase 27 U/L (38-126); Anion Gap 13.6 mEq/L (5-15); Aspartate Amino Transferase 28 U/L (14-36); Bilirubin,Total 0.8 mg/dl (0.2-1.3); Calcium 9.7 mg/dl (8.4-10.2); Carbon Dioxide 22 mmol/L (22.0-30.0); Glucose 188 mg/dl (74-100); Total Protein,Serum 7.2 g/dl (6.3-8.2)
--- NOTE | 2024-01-25 09:43 | PC.NURSE ---
0940-pt ok to d/c home hgb 8.2 and k+ 3.6; called in standing order for potassium 30meq q2h for 2 doses.
[2024-01-25 10:24] LABS: Albumin Level 4.4 g/dl (3.5-5.0); Albumin/Globulin Ratio 1.6 (1.1-1.8); Globulin 2.8 g/dL (1.3-3.2)
[2024-01-25 10:26] LABS: Hypochromasia 2+; Lymphocytes % 80 % (10-50); Monocytes % 4 % (2-9); Neutrophils % 16 % (42-76); Platelet Estimate Moderate Decrease; Total Cells Counted 50
== END 2024-01-25 09:40 | disposition home or self-care (01) ==
LOC: INF 08:58
PROVIDERS: PCP Family Medicine; Visit Provider Internal Medicine Medical Oncology
DX: C92.00 Acute myeloblastic leukemia, not having achieved remission (principal)
CPT/HCPCS: 36415; 80053; 85007; 85025; 85027

== ENCOUNTER 2024-01-28 08:55 | Outpatient (CLI) | payer MEDICARE, BC, SELFPAY ==
[2024-01-28] VITALS (10 sets, daily range): BP systolic 117–140; BP diastolic 45–60; PULSE 79–96; RESP 16; TEMP 36.9–37; O2SAT 99–100; BMI 25.0
[2024-01-28 09:39] LABS: Basophils % 0.6 % (0.1-2.0); Eosinophils % 1.2 % (0.1-12.0); Lymphocytes % 83.5 % (10-50); Mean Corpuscular HGB Conc 31.5 g/dL (31.8-35.4); Mean Corpuscular Hemoglobin 25.3 pg (27.0-31.2); Mean Corpuscular Volume 80.3 fl (81-99); Mean Platelet Volume 7.4 fl (7.4-10.4); Monocytes # 0.1 K/mm3 (0.1-1.0); Monocytes % 4.9 % (1.7-9.3); Neutrophils # 0.1 K/mm3 (1.8-7.8); Platelet Count 114 K/mm3 (142-424); Red Blood Count 2.76 M/mm3 (4.20-5.40)
[2024-01-28 09:44] LABS: Albumin Level 3.9 g/dl (3.5-5.0); Chloride 106 mmol/L (98-107); Neutrophils % 9.8 % (37.0-80.0); Sodium 136 mmol/L (136-145)
[2024-01-28 09:45] LABS: Hematocrit 22.1 % (37.0-47.0); Potassium 3.6 mmoL/L (3.5-5.1); White Blood Count 1.2 K/mm3 (4.8-10.8)
[2024-01-28 09:47] LABS: Alanine Aminotransferase 15 U/L (12-78); Albumin/Globulin Ratio 1.5 (1.1-1.8); Alkaline Phosphatase 30 U/L (38-126); Anion Gap 11.6 mEq/L (5-15); Aspartate Amino Transferase 23 U/L (14-36); Bilirubin,Total 0.7 mg/dl (0.2-1.3); Blood Urea Nitrogen 17 mg/dl (7-17); Calcium 9.5 mg/dl (8.4-10.2); Carbon Dioxide 22 mmol/L (22.0-30.0); Creatinine Clearance Estimated 52 mL/min (50-200); Estimated Glomerular Filt Rate 61 ml/min (>60); GFR (African American) 74 ML/MIN (>60); Globulin 2.6 g/dL (1.3-3.2); Glucose 158 mg/dl (74-100); MANUAL DIFFERENTIAL MANUAL DIFFERENTIAL (MANUAL DIFF); Total Protein,Serum 6.5 g/dl (6.3-8.2)
--- NOTE | 2024-01-28 09:55 | PC.NURSE ---
0955-tbradley rn collected type and screen via right chest pac with angi welder/fabricator as witness. pt to return for blood transfusion when blood is ready.
[2024-01-28] MEDS: SODIUM CHLORIDE 0.9% 10ML FLUSH SYRINGE 10 ML IV (10:00)
--- NOTE | 2024-01-28 10:00 | PC.NURSE ---
1000-called in oral potassium to [facility] pharmacy for k+ 3.6;standing order
[2024-01-28 10:12] LABS: Eosinophils % 8 % (0-3); Lymphocytes % 70 % (10-50); Monocytes % 2 % (2-9); Neutrophils % 12 % (42-76); Nucleated Red Blood Cells 1; Total Cells Counted 50
[2024-01-28 10:13] LABS: Hypochromasia 3+
[2024-01-28 10:14] LABS: Anisocytosis 3+; Poikilocytosis 2+
[2024-01-28 10:16] LABS: Schistocytes 2+
[2024-01-28 10:18] LABS: Platelet Estimate Normal
[2024-01-28] MEDS: 0.9 % SODIUM CHLORIDE 250 ML 25 ML IV (14:20)
[2024-01-28] MEDS: diphenhydrAMINE 25MG CAPSULE 25 MG PO (14:20)
--- NOTE | 2024-01-28 15:51 | PC.NURSE ---
pt didn't want to wait after transfusion. pt states she felt fine and was ready to d/c. pt instructed to return with any changes. pt to return Sunday for lab recheck.
== END 2024-01-28 16:00 | disposition home or self-care (01) ==
LOC: INF 08:57
PROVIDERS: PCP Family Medicine; Visit Provider Internal Medicine Medical Oncology
DX: C92.00 Acute myeloblastic leukemia, not having achieved remission (principal)
CPT/HCPCS: 36430; 36591; 80053; 85007; 85025; 85027; 86850; J1642; P9016

== ENCOUNTER 2024-01-30 09:02 | Outpatient (CLI) | payer MEDICARE, BC, SELFPAY ==
[2024-01-30 09:06] VITALS: BMI 25.0
[2024-01-30 09:23] LABS: Basophils % 0.5 % (0.1-2.0); Eosinophils % 1.4 % (0.1-12.0); Hematocrit 27.5 % (37.0-47.0); Lymphocytes # 1.2 K/mm3 (0.7-4.5); Lymphocytes % 87.1 % (10-50); Mean Corpuscular HGB Conc 32.8 g/dL (31.8-35.4); Mean Corpuscular Hemoglobin 26.3 pg (27.0-31.2); Mean Corpuscular Volume 80.2 fl (81-99); Mean Platelet Volume 7.3 fl (7.4-10.4); Monocytes % 2.8 % (1.7-9.3); Neutrophils # 0.1 K/mm3 (1.8-7.8); Platelet Count 129 K/mm3 (142-424); Red Blood Count 3.43 M/mm3 (4.20-5.40); Red Cell Distribution Width 22.9 % (11.5-17.5); White Blood Count 1.4 K/mm3 (4.8-10.8)
[2024-01-30 09:28] LABS: Albumin Level 4.1 g/dl (3.5-5.0); Chloride 108 mmol/L (98-107); Sodium 138 mmol/L (136-145)
[2024-01-30 09:29] LABS: Potassium 3.6 mmoL/L (3.5-5.1)
[2024-01-30 09:31] LABS: Alanine Aminotransferase 20 U/L (12-78); Anion Gap 11.6 mEq/L (5-15); Aspartate Amino Transferase 29 U/L (14-36); Blood Urea Nitrogen 18 mg/dl (7-17); Carbon Dioxide 22 mmol/L (22.0-30.0); Creatinine Clearance Estimated 52 mL/min (50-200); Estimated Glomerular Filt Rate 54 ml/min (>60); GFR (African American) 66 ML/MIN (>60)
[2024-01-30 09:32] LABS: Albumin/Globulin Ratio 1.6 (1.1-1.8); Alkaline Phosphatase 29 U/L (38-126); Bilirubin,Total 0.7 mg/dl (0.2-1.3); Calcium 9.7 mg/dl (8.4-10.2); Globulin 2.6 g/dL (1.3-3.2); Glucose 166 mg/dl (74-100); Total Protein,Serum 6.7 g/dl (6.3-8.2)
[2024-01-30 09:33] LABS: Neutrophils % 8.2 % (37.0-80.0)
[2024-01-30 09:35] LABS: MANUAL DIFFERENTIAL MANUAL DIFFERENTIAL (MANUAL DIFF)
[2024-01-30] MEDS: SODIUM CHLORIDE 0.9% 10ML FLUSH SYRINGE 10 ML IV (09:47)
[2024-01-30 12:10] LABS: Eosinophils % 2 % (0-3); Hypochromasia 1+; Lymphocytes % 88 % (10-50); Monocytes % 2 % (2-9); Neutrophils % 8 % (42-76); Platelet Estimate Slight Decrease; Total Cells Counted 50
== END 2024-01-30 09:47 | disposition home or self-care (01) ==
LOC: INF 09:03
PROVIDERS: PCP Family Medicine; Visit Provider Internal Medicine Medical Oncology
DX: C92.00 Acute myeloblastic leukemia, not having achieved remission (principal)
CPT/HCPCS: 36591; 80053; 85007; 85025; 85027; J1642

== ENCOUNTER 2024-02-01 08:47 | Outpatient (CLI) | payer MEDICARE, BC, SELFPAY ==
[2024-02-01 08:49] VITALS: BMI 26.6
[2024-02-01] MEDS: SODIUM CHLORIDE 0.9% 10ML FLUSH SYRINGE 10 ML IV (09:00)
[2024-02-01 09:10] LABS: Basophils % 0.1 % (0.1-2.0); Eosinophils % 1.6 % (0.1-12.0); Hematocrit 26.8 % (37.0-47.0); Hemoglobin 8.6 g/dL (12.2-16.2); Lymphocytes % 86.4 % (10-50); Mean Corpuscular Hemoglobin 26.2 pg (27.0-31.2); Mean Corpuscular Volume 81.7 fl (81-99); Mean Platelet Volume 7.4 fl (7.4-10.4); Monocytes % 3.8 % (1.7-9.3); Neutrophils # 0.1 K/mm3 (1.8-7.8); Platelet Count 89 K/mm3 (142-424); Red Blood Count 3.29 M/mm3 (4.20-5.40); Red Cell Distribution Width 23.5 % (11.5-17.5); White Blood Count 1.1 K/mm3 (4.8-10.8)
[2024-02-01 09:18] LABS: MANUAL DIFFERENTIAL MANUAL DIFFERENTIAL (MANUAL DIFF)
[2024-02-01 09:28] LABS: Chloride 107 mmol/L (98-107); Sodium 139 mmol/L (136-145)
[2024-02-01 09:29] LABS: Potassium 3.6 mmoL/L (3.5-5.1)
[2024-02-01 09:31] LABS: Alanine Aminotransferase 20 U/L (12-78); Albumin/Globulin Ratio 1.6 (1.1-1.8); Alkaline Phosphatase 30 U/L (38-126); Anion Gap 12.6 mEq/L (5-15); Aspartate Amino Transferase 27 U/L (14-36); Bilirubin,Total 0.7 mg/dl (0.2-1.3); Blood Urea Nitrogen 15 mg/dl (7-17); Carbon Dioxide 23 mmol/L (22.0-30.0); Creatinine Clearance Estimated 52 mL/min (50-200); Estimated Glomerular Filt Rate 61 ml/min (>60); GFR (African American) 74 ML/MIN (>60); Globulin 2.5 g/dL (1.3-3.2); Total Protein,Serum 6.5 g/dl (6.3-8.2)
[2024-02-01 09:32] LABS: Calcium 9.3 mg/dl (8.4-10.2); Glucose 162 mg/dl (74-100)
--- NOTE | 2024-02-01 10:28 | PC.NURSE ---
0955 - POTASSIUM 10MEQ TABS CALLED INTO [facility]. INSTRUCTED PT TO TAKE 3 TABS Q 2 HRS X2 DOSES TODAY.
[2024-02-01 11:09] LABS: Hypochromasia 1+; Lymphocytes % 84 % (10-50); Monocytes % 4 % (2-9); Neutrophils % 12 % (42-76); Platelet Estimate Moderate Decrease; Total Cells Counted 25
== END 2024-02-01 10:05 | disposition home or self-care (01) ==
LOC: INF 08:49
PROVIDERS: PCP Family Medicine; Visit Provider Internal Medicine Medical Oncology
DX: C92.00 Acute myeloblastic leukemia, not having achieved remission (principal)
CPT/HCPCS: 36591; 80053; 85007; 85025; 85027; J1642

== ENCOUNTER 2024-02-13 09:01 | Outpatient (CLI) | payer MEDICARE, BC, SELFPAY ==
[2024-02-13 09:07] VITALS: BMI 21.5
[2024-02-13] MEDS: SODIUM CHLORIDE 0.9% 10ML FLUSH SYRINGE 10 ML IV (09:16)
[2024-02-13 09:24] LABS: Basophils % 0.4 % (0.1-2.0); Eosinophils % 1.1 % (0.1-12.0); Hematocrit 27.3 % (37.0-47.0); Hemoglobin 9.4 g/dL (12.2-16.2); Lymphocytes # 0.7 K/mm3 (0.7-4.5); Lymphocytes % 79.9 % (10-50); Mean Corpuscular HGB Conc 34.3 g/dL (31.8-35.4); Mean Corpuscular Hemoglobin 27.3 pg (27.0-31.2); Mean Corpuscular Volume 79.6 fl (81-99); Mean Platelet Volume 7.2 fl (7.4-10.4); Monocytes % 3.3 % (1.7-9.3); Neutrophils # 0.1 K/mm3 (1.8-7.8); Neutrophils % 15.3 % (37.0-80.0); Red Blood Count 3.43 M/mm3 (4.20-5.40); Red Cell Distribution Width 21.3 % (11.5-17.5)
[2024-02-13 09:28] LABS: Platelet Count 43 K/mm3 (142-424); White Blood Count 0.9 K/mm3 (4.8-10.8)
[2024-02-13 09:29] LABS: MANUAL DIFFERENTIAL MANUAL DIFFERENTIAL (MANUAL DIFF)
[2024-02-13 09:30] LABS: Albumin Level 3.5 g/dl (3.5-5.0); Chloride 106 mmol/L (98-107); Sodium 138 mmol/L (136-145)
[2024-02-13 09:31] LABS: Potassium 3.3 mmoL/L (3.5-5.1)
[2024-02-13 09:33] LABS: Alanine Aminotransferase 13 U/L (12-78); Albumin/Globulin Ratio 1.5 (1.1-1.8); Alkaline Phosphatase 33 U/L (38-126); Anion Gap 10.3 mEq/L (5-15); Aspartate Amino Transferase 25 U/L (14-36); Bilirubin,Total 0.6 mg/dl (0.2-1.3); Blood Urea Nitrogen 15 mg/dl (7-17); Calcium 9.3 mg/dl (8.4-10.2); Carbon Dioxide 25 mmol/L (22.0-30.0); Creatinine Clearance Estimated 52 mL/min (50-200); Estimated Glomerular Filt Rate 61 ml/min (>60); GFR (African American) 74 ML/MIN (>60); Globulin 2.4 g/dL (1.3-3.2); Glucose 156 mg/dl (74-100); Total Protein,Serum 5.9 g/dl (6.3-8.2)
[2024-02-13 09:56] LABS: Acanthocytes 1+; Lymphocytes % 86 % (10-50); Neutrophils % 14 % (42-76); Ovalocytes 1+; Poikilocytosis 1+; Total Cells Counted 50
[2024-02-13 09:57] LABS: Platelet Estimate Marked Decrease; Schistocytes 1+
== END 2024-02-13 09:57 | disposition home or self-care (01) ==
LOC: INF 09:02
PROVIDERS: PCP Family Medicine; Visit Provider Internal Medicine Medical Oncology
DX: C92.00 Acute myeloblastic leukemia, not having achieved remission (principal)
CPT/HCPCS: 36591; 80053; 85007; 85025; 85027; J1642

== ENCOUNTER 2024-02-15 09:04 | Outpatient (CLI) | payer MEDICARE, BC, SELFPAY ==
[2024-02-15 09:07] VITALS: BMI 25.0
[2024-02-15] MEDS: SODIUM CHLORIDE 0.9% 10ML FLUSH SYRINGE 10 ML IV (09:15)
[2024-02-15 09:27] LABS: Basophils % 0.3 % (0.1-2.0); Hematocrit 26.8 % (37.0-47.0); Hemoglobin 8.8 g/dL (12.2-16.2); Lymphocytes # 0.6 K/mm3 (0.7-4.5); Lymphocytes % 83.6 % (10-50); Mean Corpuscular Hemoglobin 26.9 pg (27.0-31.2); Mean Corpuscular Volume 81.7 fl (81-99); Mean Platelet Volume 7.6 fl (7.4-10.4); Monocytes % 3.5 % (1.7-9.3); Neutrophils # 0.1 K/mm3 (1.8-7.8); Red Blood Count 3.28 M/mm3 (4.20-5.40); Red Cell Distribution Width 21.4 % (11.5-17.5)
[2024-02-15 09:31] LABS: Neutrophils % 12.6 % (37.0-80.0)
[2024-02-15 09:32] LABS: Platelet Count 35 K/mm3 (142-424); White Blood Count 0.7 K/mm3 (4.8-10.8)
[2024-02-15 09:34] LABS: MANUAL DIFFERENTIAL MANUAL DIFFERENTIAL (MANUAL DIFF)
[2024-02-15 09:35] LABS: Albumin Level 3.5 g/dl (3.5-5.0); Chloride 108 mmol/L (98-107); Potassium 3.3 mmoL/L (3.5-5.1); Sodium 139 mmol/L (136-145)
[2024-02-15 09:38] LABS: Alanine Aminotransferase 13 U/L (12-78); Albumin/Globulin Ratio 1.5 (1.1-1.8); Alkaline Phosphatase 33 U/L (38-126); Anion Gap 11.3 mEq/L (5-15); Aspartate Amino Transferase 24 U/L (14-36); Bilirubin,Total 0.8 mg/dl (0.2-1.3); Blood Urea Nitrogen 13 mg/dl (7-17); Carbon Dioxide 23 mmol/L (22.0-30.0); Creatinine Clearance Estimated 52 mL/min (50-200); Estimated Glomerular Filt Rate 61 ml/min (>60); GFR (African American) 74 ML/MIN (>60); Globulin 2.4 g/dL (1.3-3.2); Total Protein,Serum 5.9 g/dl (6.3-8.2)
[2024-02-15 09:39] LABS: Glucose 157 mg/dl (74-100)
[2024-02-15 10:46] LABS: Lymphocytes % 84 % (10-50); Monocytes % 4 % (2-9); Neutrophils % 12 % (42-76); Total Cells Counted 25
[2024-02-15 10:49] LABS: Platelet Estimate Marked Decrease
== END 2024-02-15 10:00 | disposition home or self-care (01) ==
PROVIDERS: PCP Family Medicine; Visit Provider Internal Medicine Medical Oncology
DX: C92.00 Acute myeloblastic leukemia, not having achieved remission (principal)
CPT/HCPCS: 36591; 80053; 85007; 85025; 85027; J1642

== ENCOUNTER 2024-02-18 08:58 | Outpatient (CLI) | payer MEDICARE, BC, SELFPAY ==
[2024-02-18 09:03] VITALS: BMI 25.0
[2024-02-18 09:20] LABS: Basophils % 0.2 % (0.1-2.0); Eosinophils % 0.2 % (0.1-12.0); Hematocrit 24.3 % (37.0-47.0); Lymphocytes # 0.4 K/mm3 (0.7-4.5); Lymphocytes % 78.4 % (10-50); Mean Corpuscular HGB Conc 33.1 g/dL (31.8-35.4); Mean Corpuscular Hemoglobin 26.2 pg (27.0-31.2); Mean Corpuscular Volume 79.2 fl (81-99); Mean Platelet Volume 7.9 fl (7.4-10.4); Monocytes % 1.7 % (1.7-9.3); Neutrophils # 0.1 K/mm3 (1.8-7.8); Neutrophils % 19.4 % (37.0-80.0); Red Blood Count 3.06 M/mm3 (4.20-5.40); Red Cell Distribution Width 21.5 % (11.5-17.5)
[2024-02-18 09:22] LABS: Chloride 106 mmol/L (98-107)
[2024-02-18 09:23] LABS: Albumin Level 3.6 g/dl (3.5-5.0); Potassium 3.2 mmoL/L (3.5-5.1); Sodium 138 mmol/L (136-145)
[2024-02-18 09:24] LABS: Platelet Count 35 K/mm3 (142-424); White Blood Count 0.6 K/mm3 (4.8-10.8)
[2024-02-18 09:25] LABS: Blood Urea Nitrogen 12 mg/dl (7-17); Creatinine Clearance Estimated 52 mL/min (50-200); Estimated Glomerular Filt Rate 61 ml/min (>60); GFR (African American) 74 ML/MIN (>60); MANUAL DIFFERENTIAL MANUAL DIFFERENTIAL (MANUAL DIFF)
[2024-02-18 09:26] LABS: Alanine Aminotransferase 13 U/L (12-78); Albumin/Globulin Ratio 1.5 (1.1-1.8); Alkaline Phosphatase 37 U/L (38-126); Anion Gap 9.2 mEq/L (5-15); Aspartate Amino Transferase 25 U/L (14-36); Bilirubin,Total 0.8 mg/dl (0.2-1.3); Carbon Dioxide 26 mmol/L (22.0-30.0); Globulin 2.4 g/dL (1.3-3.2); Glucose 163 mg/dl (74-100)
[2024-02-18] MEDS: SODIUM CHLORIDE 0.9% 10ML FLUSH SYRINGE 10 ML IV (09:38)
[2024-02-18 11:36] LABS: Hypochromasia 1+; Lymphocytes % 84 % (10-50); Monocytes % 4 % (2-9); Neutrophils % 12 % (42-76); Platelet Estimate Marked Decrease; Total Cells Counted 25
== END 2024-02-18 09:45 | disposition home or self-care (01) ==
LOC: INF 08:59
PROVIDERS: PCP Family Medicine; Visit Provider Internal Medicine Medical Oncology
DX: C92.00 Acute myeloblastic leukemia, not having achieved remission (principal)
CPT/HCPCS: 36591; 80053; 85007; 85025; J1642

== ENCOUNTER 2024-02-20 08:49 | Outpatient (CLI) | payer MEDICARE, BC, SELFPAY ==
[2024-02-20 08:56] VITALS: BMI 25.0
[2024-02-20] MEDS: SODIUM CHLORIDE 0.9% 10ML FLUSH SYRINGE 10 ML IV (09:05)
[2024-02-20 09:16] LABS: Basophils % 0.4 % (0.1-2.0); Eosinophils % 0.8 % (0.1-12.0); Hematocrit 22.3 % (37.0-47.0); Hemoglobin 7.7 g/dL (12.2-16.2); Lymphocytes # 0.4 K/mm3 (0.7-4.5); Lymphocytes % 76.9 % (10-50); Mean Corpuscular HGB Conc 34.7 g/dL (31.8-35.4); Mean Corpuscular Volume 80.6 fl (81-99); Mean Platelet Volume 8.4 fl (7.4-10.4); Neutrophils # 0.1 K/mm3 (1.8-7.8); Neutrophils % 16.8 % (37.0-80.0); Red Blood Count 2.76 M/mm3 (4.20-5.40); Red Cell Distribution Width 21.1 % (11.5-17.5)
[2024-02-20 09:26] LABS: Platelet Count 28 K/mm3 (142-424); White Blood Count 0.6 K/mm3 (4.8-10.8)
[2024-02-20 09:28] LABS: MANUAL DIFFERENTIAL MANUAL DIFFERENTIAL (MANUAL DIFF)
[2024-02-20 09:39] LABS: Alanine Aminotransferase 14 U/L (12-78); Albumin Level 3.3 g/dl (3.5-5.0); Albumin/Globulin Ratio 1.3 (1.1-1.8); Alkaline Phosphatase 37 U/L (38-126); Anion Gap 10.3 mEq/L (5-15); Aspartate Amino Transferase 21 U/L (14-36); Bilirubin,Total 0.8 mg/dl (0.2-1.3); Blood Urea Nitrogen 12 mg/dl (7-17); Calcium 8.8 mg/dl (8.4-10.2); Carbon Dioxide 23 mmol/L (22.0-30.0); Chloride 107 mmol/L (98-107); Creatinine Clearance Estimated 52 mL/min (50-200); Estimated Glomerular Filt Rate 70 ml/min (>60); GFR (African American) 85 ML/MIN (>60); Globulin 2.6 g/dL (1.3-3.2); Glucose 150 mg/dl (74-100); Potassium 3.3 mmoL/L (3.5-5.1); Sodium 137 mmol/L (136-145); Total Protein,Serum 5.9 g/dl (6.3-8.2)
[2024-02-20 09:52] LABS: Lymphocytes % 84 % (10-50); Monocytes % 4 % (2-9); Neutrophils % 12 % (42-76); Platelet Estimate Marked Decrease; RBC Morphology Normal; Total Cells Counted 25
== END 2024-02-20 10:00 | disposition home or self-care (01) ==
LOC: INF 08:50
PROVIDERS: PCP Family Medicine; Visit Provider Internal Medicine Medical Oncology
DX: C92.00 Acute myeloblastic leukemia, not having achieved remission (principal)
CPT/HCPCS: 36591; 80053; 85007; 85025; J1642

== ENCOUNTER 2024-02-22 08:55 | Outpatient (CLI) | payer MEDICARE, BC, SELFPAY ==
[2024-02-22] VITALS (10 sets, daily range): BP systolic 113–144; BP diastolic 44–65; PULSE 75–81; RESP 16–17; TEMP 36.2–36.4; O2SAT 99–100; BMI 25.0
[2024-02-22 09:18] LABS: Basophils % 0.7 % (0.1-2.0); Eosinophils % 0.4 % (0.1-12.0); Lymphocytes # 0.5 K/mm3 (0.7-4.5); Mean Corpuscular Hemoglobin 27.4 pg (27.0-31.2); Mean Corpuscular Volume 80.5 fl (81-99); Mean Platelet Volume 8.2 fl (7.4-10.4); Monocytes % 1.6 % (1.7-9.3); Neutrophils # 0.1 K/mm3 (1.8-7.8); Red Blood Count 2.49 M/mm3 (4.20-5.40); Red Cell Distribution Width 21.4 % (11.5-17.5)
[2024-02-22 09:22] LABS: Neutrophils % 12.3 % (37.0-80.0)
[2024-02-22 09:23] LABS: Hemoglobin 6.8 g/dL (12.2-16.2); Platelet Count 19 K/mm3 (142-424); White Blood Count 0.6 K/mm3 (4.8-10.8)
[2024-02-22 09:24] LABS: MANUAL DIFFERENTIAL MANUAL DIFFERENTIAL (MANUAL DIFF)
[2024-02-22 09:28] LABS: Albumin Level 3.4 g/dl (3.5-5.0); Chloride 109 mmol/L (98-107); Potassium 3.2 mmoL/L (3.5-5.1); Sodium 139 mmol/L (136-145)
[2024-02-22 09:30] LABS: Blood Urea Nitrogen 13 mg/dl (7-17)
[2024-02-22 09:31] LABS: Alanine Aminotransferase 12 U/L (12-78); Albumin/Globulin Ratio 1.4 (1.1-1.8); Alkaline Phosphatase 39 U/L (38-126); Anion Gap 9.2 mEq/L (5-15); Aspartate Amino Transferase 20 U/L (14-36); Bilirubin,Total 0.7 mg/dl (0.2-1.3); Calcium 8.8 mg/dl (8.4-10.2); Carbon Dioxide 24 mmol/L (22.0-30.0); Creatinine Clearance Estimated 52 mL/min (50-200); Estimated Glomerular Filt Rate 70 ml/min (>60); GFR (African American) 85 ML/MIN (>60); Globulin 2.5 g/dL (1.3-3.2); Glucose 165 mg/dl (74-100); Total Protein,Serum 5.9 g/dl (6.3-8.2)
[2024-02-22 09:41] LABS: Acanthocytes 1+; Anisocytosis 1+; Hypochromasia 1+; Lymphocytes % 88 % (10-50); Microcytosis 1+; Monocytes % 4 % (2-9); Neutrophils % 8 % (42-76); Platelet Estimate Marked Decrease; Poikilocytosis 1+; Schistocytes 1+; Total Cells Counted 25
[2024-02-22] MEDS: diphenhydrAMINE 25MG CAPSULE 25 MG PO (12:30)
[2024-02-22] MEDS: ACETAMINOPHEN 325MG TAB 650 MG PO (12:30)
[2024-02-22] MEDS: SODIUM CHLORIDE 0.9% 250ML BAG 250 ML IV (13:09)
--- NOTE | 2024-02-22 14:12 | PC.NURSE ---
1404 - BLOOD TRANSFUSION STARTED AT 100 ML/HR AT THIS TIME.
--- NOTE | 2024-02-22 14:43 | PC.NURSE ---
1434-INCREASED RATE TO 150 ML/HR AT THIS TIME.
--- NOTE | 2024-02-22 14:54 | PC.NURSE ---
1449-INCREASED RATE TO 200 ML/HR AT THIS TIME.
--- NOTE | 2024-02-22 15:12 | PC.NURSE ---
1504-INCREASED RATE TO 250 ML/HR AT THIS TIME.
--- NOTE | 2024-02-22 16:27 | PC.NURSE ---
1625 - Pt has been at hospital since 0900 this morning and did not wish to stay to complete her 1 hr post V/S's.
== END 2024-02-22 16:29 | disposition home or self-care (01) ==
LOC: INF 08:56
PROVIDERS: PCP Family Medicine; Visit Provider Internal Medicine Medical Oncology
DX: C92.00 Acute myeloblastic leukemia, not having achieved remission (principal)
CPT/HCPCS: 36430; 80053; 85007; 85025; 86850; J1642; P9016

== ENCOUNTER 2024-02-22 16:47 | Emergency (ER) | payer MEDICARE, BC, SELFPAY ==
[2024-02-22 16:48] VITALS: BP 154/61; PULSE 87; RESP 16; TEMP 36.6; O2SAT 99; BMI 24.5
--- NOTE | 2024-02-22 16:55 | HMH.EDGENADL ---
Discharge Plan Disposition Patient Disposition: Home, Self-Care Condition: Good Prescriptions Prescriptions: No Action fluticasone propionate 50 mcg/actuation spray,suspension 1 spray intranasal ONCE Patient Comments: USE 1 SPRAY(S) IN EACH NOSTRIL ONCE DAILY montelukast 10 mg tablet 10 mg PO DAILY Patient Comments: TAKE 1 TABLET BY MOUTH ONCE DAILY amlodipine 5 MG tablet 5 mg PO DAILY Qty: 15 0RF atorvastatin 10 mg Tablet 10 mg PO DAILY pioglitazone [Actos] 30 mg Tablet 30 mg PO DAILY fenofibrate nanocrystallized 145 mg Tablet 145 mg PO DAILY Referrals Follow up/Referrals: Nathaniel Vazquez MD [Primary Care Provider] - See instructions Activity Restrictions/Add. Instructions Additional Instructions/Restrictions: Keep your regular scheduled appointment with your PCP and oncologist. Return to the ER as we discussed for any uncontrollable bleeding or worsening signs or recurrence of symptoms. Clinical Impressions Clinical Impression: Thrombocytopenia, Bleeding at insertion site, Leukemia Print Language Print Language: Bolivian Discharge ED Provider: Daniel Carvalho General Adult HPI <DANIELA Warner - Last Filed: 02/22/24 22:40> General Chief complaint: Recheck/Abnormal Lab/Rx Stated complaint: Port bleeding after infusion Time Seen by Provider: 02/22/24 16:48 History of Present Illness HPI narrative: Patient presents for evaluation of bleeding. Patient has a history of AML and has seen both Dr. Palacio here in the [facility]. Patient has been recently started on infusion chemotherapy. Additionally she has had significant anemia and has been receiving blood transfusions as well. Today she got a blood transfusion of irradiated blood cells along with the chemotherapy. She had no problems tolerating her chemotherapy and left the clinic normally. However very shortly after leaving she noticed that her shirt was red with blood and she returned to the infusion center however the staff it already left for the day. Hence she presented to the ER for evaluation. She denies any chest pain fever chills hemoptysis hematochezia melena nausea vomit diarrhea. Related Data Home Medications ?Medication ?Instructions ?Recorded ?Confirmed atorvastatin 10 mg tablet 10 mg PO DAILY 12/13/23 02/22/24 fenofibrate nanocrystallized 145 145 mg PO DAILY 12/13/23 02/22/24 mg tablet pioglitazone 30 mg tablet (Actos) 30 mg PO DAILY 12/13/23 02/22/24 fluticasone propionate 50 1 spray intranasal ONCE 12/26/23 02/22/24 mcg/actuation nasal spray,suspension montelukast 10 mg tablet 10 mg PO DAILY 12/26/23 02/22/24 Previous Rx's ?Medication ?Instructions ?Recorded amlodipine 5 mg tablet 5 mg PO DAILY #15 tabs 07/02/17 Allergies Allergy/AdvReac Type Severity Reaction Status Date / Time No Known Allergies Allergy Verified 01/01/24 13:09 [facility] <DANIELA Warner - Last Filed: 02/22/24 22:40> [facility] Disclaimer: The information contained in this section may have been updated after the patient was seen, as this information can be updated by other users. Medical History Hyperlipidemia Hypertension Diabetes Surgical History Previous back surgery H/O hand surgery Hx of cholecystectomy H/O: hysterectomy Family History Other Heart disease Social History Smoking Status: Never smoker alcohol intake: never substance use type: denies use current occupational status: retired Travel in the last 8 weeks: None household members: family housing: house Other Medical History Have you received the Flu Vaccine for this season: No Have you received the Pneumonia Vaccine: Yes <DANIELA Warner - Last Filed: 02/22/24 22:40> ROS Obtained: Yes Systems reviewed as appropriate & no additional complaints except as documented Physical Exam <DANIELA Warner - Last Filed: 02/22/24 22:40> General General appearance: alert and in no apparent distress Respiratory Respiratory exam: Present normal lung sounds bilaterally Cardiovascular Cardiovascular exam: Present regular rate Neurological Exam Neurological exam: Present alert and oriented X3 Medical Decision Making <DANIELA Warner - Last Filed: 02/22/24 22:40> Medical Records Medical records reviewed: Yes I reviewed the patient's medical records. Screening: Per USPSTF and CDC recommendations, given the prevalence of disease in our region, it is our hospital?s policy to screen for HIV and viral Hepatitis for all patients aged 18 and over and those with ongoing risk factors. Russ Inquiry Pt receiving controlled substance: No Vital Signs: 02/22/24 16:48 02/22/24 17:00 02/22/24 17:30 Temperature 97.9 F Temperature Source Oral Pulse Rate 82 83 Pulse Rate [Radial] 87 Respiratory Rate 16 18 16 Blood Pressure 135/58 L 151/62 H Blood Pressure [Right Arm] 154/61 H Blood Pressure Mean 84 80 Blood Pressure Mean [Right Arm] 92 Blood Pressure Source Blood Pressure Source [Right Arm] Automatic Cuff Blood Pressure Position Blood Pressure Position [Right Arm] Sitting 02 Sat by Pulse Oximetry 99 99 100 Oxygen Delivery Method Room Air 02/22/24 17:45 Temperature 97.9 F Temperature Source Oral Pulse Rate 83 Pulse Rate [Radial] Respiratory Rate 16 Blood Pressure 151/62 H Blood Pressure [Right Arm] Blood Pressure Mean Blood Pressure Mean [Right Arm] Blood Pressure Source Automatic Cuff Blood Pressure Source [Right Arm] Blood Pressure Position Sitting Blood Pressure Position [Right Arm] 02 Sat by Pulse Oximetry Oxygen Delivery Method Room Air Lab Data Lab results reviewed: Yes I reviewed the patient's lab results. Medical Decision Narrative: In summary patient is a 73-year-old female who presents to the emergency department for evaluation of bleeding from her port access site. Patient is hemodynamically stable upon arrival, afebrile. Physical exam shows a steady venous ooze from the needle puncture site of the Adler needle. No evidence of hematoma or subcutaneous expansion.. Differential diagnosis includes thrombocytopenia versus incorrect access technique etc. Initial workup was considered but patient has already had labs today so I will review with already been done. Initial interventions include direct pressure. Initial workup reviewed by me shows that she has a downward trend in her platelets that has been steady and today is 19. Patient is also lymphopenic as expected with chemotherapy. The CBC done today was done pretransfusion and given the fact that she is thrombocytopenic I have deferred ordering new labs until I speak with her oncologist.. Given that I had an interactive discussion with [facility] oncology on-call Dr. Taylor and we discussed patient management. Dr. Montana is very comfortable with where the patient is however she wanted to pass some strict return precautions along to the patient including increasing bleeding and should the patient to start to bleed she will likely need to come to the [facility] because we do not carry platelets here and we also do not carry irradiated blood cells here. Given that I had interactive discussion with the patient regarding findings, I showed her how to use and gave her some Surgicel to utilize in an emergency while she came to the emergency department and I gave her strict return precautions. Patient verbalized understanding and agreement. That she is appropriate for discharge as patient has now had hemostasis for 30 minutes under my direct supervision. <Daniel Carvalho MD - Last Filed: 02/22/24 23:36> Vital Signs: 02/22/24 16:48 02/22/24 17:00 02/22/24 17:30 Temperature 97.9 F Temperature Source Oral Pulse Rate 82 83 Pulse Rate [Radial] 87 Respiratory Rate 16 18 16 Blood Pressure 135/58 L 151/62 H Blood Pressure [Right Arm] 154/61 H Blood Pressure Mean 84 80 Blood Pressure Mean [Right Arm] 92 Blood Pressure Source Blood Pressure Source [Right Arm] Automatic Cuff Blood Pressure Position Blood Pressure Position [Right Arm] Sitting 02 Sat by Pulse Oximetry 99 99 100 Oxygen Delivery Method Room Air 02/22/24 17:45 Temperature 97.9 F Temperature Source Oral Pulse Rate 83 Pulse Rate [Radial] Respiratory Rate 16 Blood Pressure 151/62 H Blood Pressure [Right Arm] Blood Pressure Mean Blood Pressure Mean [Right Arm] Blood Pressure Source Automatic Cuff Blood Pressure Source [Right Arm] Blood Pressure Position Sitting Blood Pressure Position [Right Arm] 02 Sat by Pulse Oximetry Oxygen Delivery Method Room Air Medical Decision Narrative: In summary patient is a 73-year-old female who presents to the emergency department for evaluation of bleeding from her port access site. Patient is hemodynamically stable upon arrival, afebrile. Physical exam shows a steady venous ooze from the needle puncture site of the Adler needle. No evidence of hematoma or subcutaneous expansion.. Differential diagnosis includes thrombocytopenia versus incorrect access technique etc. Initial workup was considered but patient has already had labs today so I will review with already been done. Initial interventions include direct pressure. Initial workup reviewed by me shows that she has a downward trend in her platelets that has been steady and today is 19. Patient is also lymphopenic as expected with chemotherapy. The CBC done today was done pretransfusion and given the fact that she is thrombocytopenic I have deferred ordering new labs until I speak with her oncologist.. Given that I had an interactive discussion with [facility] oncology on-call Dr. Taylor and we discussed patient management. Dr. Montana is very comfortable with where the patient is however she wanted to pass some strict return precautions along to the patient including increasing bleeding and should the patient to start to bleed she will likely need to come to the [facility] because we do not carry platelets here and we also do not carry irradiated blood cells here. Given that I had interactive discussion with the patient regarding findings, I showed her how to use and gave her some Surgicel to utilize in an emergency while she came to the emergency department and I gave her strict return precautions. Patient verbalized understanding and agreement. That she is appropriate for discharge as patient has now had hemostasis for 30 minutes under my direct supervision. I was consulted by the SARA, and we discussed the complexity of the problems being addressed. I approved the treatment and management plan for this patient's care in the Emergency Department, thus performing a substantive portion of the medical decision making. Daniel Carvalho MD Critical Care <DANIELA Warner - Last Filed: 02/22/24 22:40> Critical Care Time Critical Care Time: No
[2024-02-22 17:00] VITALS: BP 135/58; PULSE 82; RESP 18; O2SAT 99
--- NOTE | 2024-02-22 17:07 | PC.NURSE ---
Calling [facility] to s/w oncology for acute thrombocytopenia
--- NOTE | 2024-02-22 17:12 | PC.NURSE ---
Jamil SUAREZ-Cs/w transfer center/oncology
[2024-02-22 17:30] VITALS: BP 151/62; PULSE 83; RESP 16; O2SAT 100
[2024-02-22 17:45] VITALS: BP 151/62; PULSE 83; RESP 16; TEMP 36.6; O2SAT 100
== END 2024-02-22 17:45 | disposition home or self-care (01) ==
PROVIDERS: Emergency Provider Emergency Medicine; PCP Family Medicine
DX: L76.82 Other postprocedural complications of skin and subcutaneous tissue (principal); C95.90 Leukemia, unspecified not having achieved remission; D69.6 Thrombocytopenia, unspecified
CPT/HCPCS: 99283

== ENCOUNTER 2024-02-27 09:00 | Outpatient (CLI) | payer MEDICARE, BC, SELFPAY ==
[2024-02-27 09:17] VITALS: BMI 25.0
[2024-02-27 09:42] LABS: Basophils % 0.2 % (0.1-2.0); Hematocrit 24.6 % (37.0-47.0); Hemoglobin 8.4 g/dL (12.2-16.2); Lymphocytes # 0.4 K/mm3 (0.7-4.5); Mean Corpuscular Hemoglobin 28.7 pg (27.0-31.2); Mean Corpuscular Volume 84.4 fl (81-99); Mean Platelet Volume 8.3 fl (7.4-10.4); Monocytes % 2.8 % (1.7-9.3); Red Blood Count 2.92 M/mm3 (4.20-5.40); Red Cell Distribution Width 18.7 % (11.5-17.5)
[2024-02-27 09:45] LABS: Neutrophils % 8.9 % (37.0-80.0)
[2024-02-27 09:50] LABS: Alanine Aminotransferase 16 U/L (12-78); Albumin Level 3.6 g/dl (3.5-5.0); Albumin/Globulin Ratio 1.6 (1.1-1.8); Alkaline Phosphatase 45 U/L (38-126); Aspartate Amino Transferase 26 U/L (14-36); Bilirubin,Total 0.9 mg/dl (0.2-1.3); Blood Urea Nitrogen 14 mg/dl (7-17); Calcium 9.1 mg/dl (8.4-10.2); Carbon Dioxide 23 mmol/L (22.0-30.0); Chloride 110 mmol/L (98-107); Creatinine Clearance Estimated 52 mL/min (50-200); Estimated Glomerular Filt Rate 70 ml/min (>60); GFR (African American) 85 ML/MIN (>60); Globulin 2.2 g/dL (1.3-3.2); Glucose 122 mg/dl (74-100); Sodium 141 mmol/L (136-145); Total Protein,Serum 5.8 g/dl (6.3-8.2)
[2024-02-27 09:53] LABS: Platelet Count 20 K/mm3 (142-424); White Blood Count 0.5 K/mm3 (4.8-10.8)
[2024-02-27 09:54] LABS: MANUAL DIFFERENTIAL MANUAL DIFFERENTIAL (MANUAL DIFF)
[2024-02-27 10:35] LABS: Lymphocytes % 96 % (10-50); Neutrophils % 4 % (42-76); Platelet Estimate Marked Decrease; Total Cells Counted 25
[2024-02-27 10:36] LABS: Anisocytosis 1+; Microcytosis 1+
[2024-02-27 10:37] LABS: Acanthocytes 1+; Poikilocytosis 1+
[2024-02-27] MEDS: SODIUM CHLORIDE 0.9% 10ML FLUSH SYRINGE 10 ML IV (10:56)
== END 2024-02-27 10:20 | disposition home or self-care (01) ==
LOC: INF 09:02
PROVIDERS: PCP Family Medicine; Visit Provider Internal Medicine Medical Oncology
DX: C92.00 Acute myeloblastic leukemia, not having achieved remission (principal)
CPT/HCPCS: 36591; 80053; 85007; 85025; J1642

== ENCOUNTER 2024-02-29 09:03 | Outpatient (CLI) | payer MEDICARE, BC, SELFPAY ==
[2024-02-29 09:14] VITALS: BMI 25.0
[2024-02-29] MEDS: SODIUM CHLORIDE 0.9% 10ML FLUSH SYRINGE 10 ML IV (09:25)
[2024-02-29 09:34] LABS: Basophils % 0.7 % (0.1-2.0); Eosinophils % 0.2 % (0.1-12.0); Hematocrit 22.6 % (37.0-47.0); Hemoglobin 7.6 g/dL (12.2-16.2); Lymphocytes # 0.5 K/mm3 (0.7-4.5); Lymphocytes % 92.5 % (10-50); Mean Corpuscular HGB Conc 33.5 g/dL (31.8-35.4); Mean Corpuscular Hemoglobin 28.4 pg (27.0-31.2); Mean Corpuscular Volume 84.7 fl (81-99); Mean Platelet Volume 7.9 fl (7.4-10.4); Monocytes % 0.7 % (1.7-9.3); Red Blood Count 2.67 M/mm3 (4.20-5.40); Red Cell Distribution Width 18.8 % (11.5-17.5)
[2024-02-29 09:35] LABS: Neutrophils % 5.9 % (37.0-80.0)
[2024-02-29 09:36] LABS: MANUAL DIFFERENTIAL MANUAL DIFFERENTIAL (MANUAL DIFF); Platelet Count 31 K/mm3 (142-424); White Blood Count 0.5 K/mm3 (4.8-10.8)
[2024-02-29 09:46] LABS: Albumin Level 3.3 g/dl (3.5-5.0); Chloride 112 mmol/L (98-107); Potassium 3.5 mmoL/L (3.5-5.1); Sodium 143 mmol/L (136-145)
[2024-02-29 09:48] LABS: Blood Urea Nitrogen 19 mg/dl (7-17); Creatinine Clearance Estimated 52 mL/min (50-200); Estimated Glomerular Filt Rate 61 ml/min (>60); GFR (African American) 74 ML/MIN (>60)
[2024-02-29 09:49] LABS: Alanine Aminotransferase 15 U/L (12-78); Albumin/Globulin Ratio 1.3 (1.1-1.8); Alkaline Phosphatase 47 U/L (38-126); Anion Gap 11.5 mEq/L (5-15); Aspartate Amino Transferase 24 U/L (14-36); Bilirubin,Total 0.8 mg/dl (0.2-1.3); Calcium 9.3 mg/dl (8.4-10.2); Carbon Dioxide 23 mmol/L (22.0-30.0); Globulin 2.5 g/dL (1.3-3.2); Glucose 124 mg/dl (74-100); Total Protein,Serum 5.8 g/dl (6.3-8.2)
[2024-02-29 10:09] LABS: Lymphocytes % 96 % (10-50); Neutrophils % 4 % (42-76); Platelet Estimate Marked Decrease; Total Cells Counted 25
[2024-02-29 10:10] LABS: Anisocytosis 1+; Hypochromasia 1+
== END 2024-02-29 10:20 | disposition home or self-care (01) ==
LOC: INF 09:04
PROVIDERS: PCP Family Medicine; Visit Provider Internal Medicine Medical Oncology
DX: C92.00 Acute myeloblastic leukemia, not having achieved remission (principal)
CPT/HCPCS: 36591; 80053; 85007; 85025; J1642

== ENCOUNTER 2024-03-03 09:24 | Outpatient (CLI) | payer MEDICARE, BC, SELFPAY ==
[2024-03-03 09:31] VITALS: BMI 25.0
[2024-03-03 09:54] LABS: Albumin Level 3.4 g/dl (3.5-5.0); Basophils % 0.7 % (0.1-2.0); Chloride 112 mmol/L (98-107); Eosinophils % 1.2 % (0.1-12.0); Hematocrit 23.5 % (37.0-47.0); Hemoglobin 7.8 g/dL (12.2-16.2); Lymphocytes # 0.5 K/mm3 (0.7-4.5); Lymphocytes % 89.1 % (10-50); Mean Corpuscular HGB Conc 33.4 g/dL (31.8-35.4); Mean Corpuscular Hemoglobin 28.4 pg (27.0-31.2); Mean Corpuscular Volume 84.9 fl (81-99); Mean Platelet Volume 10.9 fl (7.4-10.4); Monocytes % 2.9 % (1.7-9.3); Platelet Count 163 K/mm3 (142-424); Potassium 3.1 mmoL/L (3.5-5.1); Red Blood Count 2.76 M/mm3 (4.20-5.40); Red Cell Distribution Width 19.9 % (11.5-17.5); Sodium 142 mmol/L (136-145)
[2024-03-03 09:56] LABS: Blood Urea Nitrogen 10 mg/dl (7-17); Creatinine Clearance Estimated 52 mL/min (50-200); Estimated Glomerular Filt Rate 70 ml/min (>60); GFR (African American) 85 ML/MIN (>60)
[2024-03-03 09:57] LABS: Alanine Aminotransferase 12 U/L (12-78); Albumin/Globulin Ratio 1.4 (1.1-1.8); Alkaline Phosphatase 53 U/L (38-126); Anion Gap 10.1 mEq/L (5-15); Aspartate Amino Transferase 24 U/L (14-36); Bilirubin,Total 0.8 mg/dl (0.2-1.3); Calcium 8.7 mg/dl (8.4-10.2); Carbon Dioxide 23 mmol/L (22.0-30.0); Globulin 2.5 g/dL (1.3-3.2); Glucose 118 mg/dl (74-100); Total Protein,Serum 5.9 g/dl (6.3-8.2)
[2024-03-03 10:15] LABS: White Blood Count 0.6 K/mm3 (4.8-10.8)
[2024-03-03 10:16] LABS: MANUAL DIFFERENTIAL MANUAL DIFFERENTIAL (MANUAL DIFF)
[2024-03-03] MEDS: SODIUM CHLORIDE 0.9% 10ML FLUSH SYRINGE 10 ML IV (10:20)
--- NOTE | 2024-03-03 10:22 | PC.NURSE ---
1022-PT INSTRUCTED TO TAKE POTASSIUM CHLORIDE 10MEQ PO (4 TABS) Q2H FOR A TOTAL OF 80MEQ PO FOR K+ 3.1 PER STANDING ORDER.
[2024-03-03 12:01] LABS: Hypochromasia 1+; Lymphocytes % 96 % (10-50); Neutrophils % 4 % (42-76); Platelet Estimate Normal; Total Cells Counted 25
== END 2024-03-03 10:22 | disposition home or self-care (01) ==
LOC: INF 09:25
PROVIDERS: PCP Family Medicine; Visit Provider Internal Medicine Medical Oncology
DX: C95.90 Leukemia, unspecified not having achieved remission (principal)
CPT/HCPCS: 36591; 80053; 85007; 85025; J1642

== ENCOUNTER 2024-03-05 09:02 | Outpatient (CLI) | payer MEDICARE, BC, SELFPAY ==
[2024-03-05 09:11] VITALS: BMI 25.0
[2024-03-05] MEDS: SODIUM CHLORIDE 0.9% 10ML FLUSH SYRINGE 10 ML IV (09:20)
[2024-03-05 09:41] LABS: Basophils % 0.3 % (0.1-2.0); Eosinophils % 0.8 % (0.1-12.0); Hematocrit 25.2 % (37.0-47.0); Lymphocytes # 0.7 K/mm3 (0.7-4.5); Lymphocytes % 89.2 % (10-50); Mean Corpuscular HGB Conc 31.8 g/dL (31.8-35.4); Mean Corpuscular Hemoglobin 27.9 pg (27.0-31.2); Mean Corpuscular Volume 87.6 fl (81-99); Mean Platelet Volume 9.4 fl (7.4-10.4); Monocytes % 4.7 % (1.7-9.3); Platelet Count 422 K/mm3 (142-424); Red Blood Count 2.87 M/mm3 (4.20-5.40); Red Cell Distribution Width 21.4 % (11.5-17.5)
[2024-03-05 09:47] LABS: Alanine Aminotransferase 12 U/L (12-78); Albumin Level 3.4 g/dl (3.5-5.0); Albumin/Globulin Ratio 1.4 (1.1-1.8); Alkaline Phosphatase 63 U/L (38-126); Anion Gap 10.3 mEq/L (5-15); Aspartate Amino Transferase 24 U/L (14-36); Bilirubin,Total 0.7 mg/dl (0.2-1.3); Blood Urea Nitrogen 10 mg/dl (7-17); Calcium 8.6 mg/dl (8.4-10.2); Carbon Dioxide 22 mmol/L (22.0-30.0); Chloride 114 mmol/L (98-107); Creatinine Clearance Estimated 52 mL/min (50-200); Estimated Glomerular Filt Rate 82 ml/min (>60); GFR (African American) 99 ML/MIN (>60); Globulin 2.5 g/dL (1.3-3.2); Glucose 100 mg/dl (74-100); MANUAL DIFFERENTIAL MANUAL DIFFERENTIAL (MANUAL DIFF); Potassium 3.3 mmoL/L (3.5-5.1); Sodium 143 mmol/L (136-145); Total Protein,Serum 5.9 g/dl (6.3-8.2); White Blood Count 0.7 K/mm3 (4.8-10.8)
[2024-03-05 13:36] LABS: Lymphocytes % 88 % (10-50); Monocytes % 4 % (2-9); Neutrophils % 8 % (42-76); Nucleated Red Blood Cells 1; Total Cells Counted 25
[2024-03-05 13:37] LABS: Hypochromasia 1+
[2024-03-05 13:38] LABS: Platelet Estimate Normal
== END 2024-03-05 10:15 | disposition home or self-care (01) ==
LOC: INF 09:05
PROVIDERS: PCP Family Medicine; Visit Provider Internal Medicine Medical Oncology
DX: C92.00 Acute myeloblastic leukemia, not having achieved remission (principal)
CPT/HCPCS: 36591; 80053; 85007; 85025; J1642

== ENCOUNTER 2024-03-07 08:55 | Outpatient (CLI) | payer MEDICARE, BC, SELFPAY ==
[2024-03-07 09:14] VITALS: BMI 25.0
[2024-03-07 09:30] LABS: Albumin Level 3.3 g/dl (3.5-5.0); Chloride 114 mmol/L (98-107)
[2024-03-07 09:31] LABS: Hematocrit 26.1 % (37.0-47.0); Hemoglobin 8.4 g/dL (12.2-16.2); Mean Corpuscular Volume 88.4 fl (81-99); Red Blood Count 2.95 M/mm3 (4.20-5.40); Sodium 144 mmol/L (136-145)
[2024-03-07 09:32] LABS: Basophils % 0.1 % (0.1-2.0); Eosinophils % 0.1 % (0.1-12.0); Lymphocytes # 0.7 K/mm3 (0.7-4.5); Lymphocytes % 80.5 % (10-50); Mean Corpuscular HGB Conc 32.4 g/dL (31.8-35.4); Mean Corpuscular Hemoglobin 28.6 pg (27.0-31.2); Mean Platelet Volume 8.9 fl (7.4-10.4); Monocytes # 0.1 K/mm3 (0.1-1.0); Monocytes % 12.8 % (1.7-9.3); Neutrophils # 0.1 K/mm3 (1.8-7.8); Platelet Count 614 K/mm3 (142-424)
[2024-03-07 09:33] LABS: Alanine Aminotransferase 14 U/L (12-78); Aspartate Amino Transferase 28 U/L (14-36); Blood Urea Nitrogen 8 mg/dl (7-17); Carbon Dioxide 22 mmol/L (22.0-30.0); Creatinine Clearance Estimated 52 mL/min (50-200); Estimated Glomerular Filt Rate 70 ml/min (>60); GFR (African American) 85 ML/MIN (>60)
[2024-03-07 09:34] LABS: Albumin/Globulin Ratio 1.3 (1.1-1.8); Alkaline Phosphatase 50 U/L (38-126); Bilirubin,Total 0.5 mg/dl (0.2-1.3); Calcium 8.9 mg/dl (8.4-10.2); Globulin 2.5 g/dL (1.3-3.2); Glucose 123 mg/dl (74-100); Total Protein,Serum 5.8 g/dl (6.3-8.2)
[2024-03-07 09:54] LABS: Neutrophils % 6.4 % (37.0-80.0); White Blood Count 0.9 K/mm3 (4.8-10.8)
[2024-03-07 09:55] LABS: MANUAL DIFFERENTIAL MANUAL DIFFERENTIAL (MANUAL DIFF)
[2024-03-07 12:48] LABS: Lymphocytes % 84 % (10-50); Monocytes % 16 % (2-9); Total Cells Counted 25
[2024-03-07 12:49] LABS: Acanthocytes 1+; Hypochromasia 1+; Microcytosis 1+; Ovalocytes 1+; Platelet Estimate Slight Increase; Schistocytes 1+
== END 2024-03-07 10:05 | disposition home or self-care (01) ==
LOC: INF 08:56
PROVIDERS: PCP Family Medicine; Visit Provider Internal Medicine Medical Oncology
DX: C92.00 Acute myeloblastic leukemia, not having achieved remission (principal)
CPT/HCPCS: 36591; 80053; 85007; 85025; J1642

== ENCOUNTER 2024-03-10 11:06 | Outpatient (CLI) | payer MEDICARE, BC, SELFPAY ==
[2024-03-10 11:16] VITALS: BMI 25.0
[2024-03-10 11:39] LABS: Albumin Level 3.4 g/dl (3.5-5.0); Chloride 113 mmol/L (98-107); Potassium 3.1 mmoL/L (3.5-5.1); Sodium 144 mmol/L (136-145)
[2024-03-10 11:40] LABS: Basophils % 0.9 % (0.1-2.0); Eosinophils % 0.6 % (0.1-12.0); Hemoglobin 9.4 g/dL (12.2-16.2); Lymphocytes # 0.8 K/mm3 (0.7-4.5); Lymphocytes % 55.5 % (10-50); Mean Corpuscular HGB Conc 31.3 g/dL (31.8-35.4); Mean Corpuscular Hemoglobin 28.5 pg (27.0-31.2); Mean Corpuscular Volume 90.9 fl (81-99); Monocytes # 0.3 K/mm3 (0.1-1.0); Monocytes % 21.6 % (1.7-9.3); Neutrophils # 0.3 K/mm3 (1.8-7.8); Neutrophils % 21.3 % (37.0-80.0); Platelet Count 777 K/mm3 (142-424); Red Cell Distribution Width 23.5 % (11.5-17.5); White Blood Count 1.4 K/mm3 (4.8-10.8)
[2024-03-10 11:42] LABS: Alanine Aminotransferase 14 U/L (12-78); Albumin/Globulin Ratio 1.3 (1.1-1.8); Alkaline Phosphatase 57 U/L (38-126); Anion Gap 12.1 mEq/L (5-15); Aspartate Amino Transferase 31 U/L (14-36); Bilirubin,Total 0.5 mg/dl (0.2-1.3); Blood Urea Nitrogen 6 mg/dl (7-17); Calcium 8.7 mg/dl (8.4-10.2); Carbon Dioxide 22 mmol/L (22.0-30.0); Creatinine Clearance Estimated 52 mL/min (50-200); Estimated Glomerular Filt Rate 82 ml/min (>60); GFR (African American) 99 ML/MIN (>60); Globulin 2.6 g/dL (1.3-3.2); Glucose 125 mg/dl (74-100)
[2024-03-10 12:12] LABS: MANUAL DIFFERENTIAL MANUAL DIFFERENTIAL (MANUAL DIFF)
[2024-03-10] MEDS: SODIUM CHLORIDE 0.9% 10ML FLUSH SYRINGE 10 ML IV (12:57)
[2024-03-10 14:41] LABS: Lymphocytes % 72 % (10-50); Monocytes % 8 % (2-9); Neutrophils % 20 % (42-76); Total Cells Counted 50
[2024-03-10 14:42] LABS: Platelet Estimate Marked Increase; RBC Morphology Normal
== END 2024-03-10 12:57 | disposition home or self-care (01) ==
LOC: INF 11:09
PROVIDERS: PCP Family Medicine; Visit Provider Internal Medicine Medical Oncology
DX: C92.00 Acute myeloblastic leukemia, not having achieved remission (principal)
CPT/HCPCS: 36591; 80053; 85007; 85025; J1642

== ENCOUNTER 2024-03-12 08:50 | Outpatient (CLI) | payer MEDICARE, BC, SELFPAY ==
[2024-03-12 08:55] VITALS: BMI 26.6
[2024-03-12 09:13] LABS: Basophils % 1.6 % (0.1-2.0); Eosinophils % 0.2 % (0.1-12.0); Hematocrit 30.9 % (37.0-47.0); Hemoglobin 9.8 g/dL (12.2-16.2); Lymphocytes # 1.1 K/mm3 (0.7-4.5); Lymphocytes % 56.7 % (10-50); Mean Corpuscular HGB Conc 31.6 g/dL (31.8-35.4); Mean Corpuscular Hemoglobin 29.1 pg (27.0-31.2); Mean Corpuscular Volume 92.1 fl (81-99); Mean Platelet Volume 9.5 fl (7.4-10.4); Monocytes # 0.3 K/mm3 (0.1-1.0); Monocytes % 13.5 % (1.7-9.3); Neutrophils # 0.6 K/mm3 (1.8-7.8); Platelet Count 689 K/mm3 (142-424); Red Blood Count 3.36 M/mm3 (4.20-5.40); Red Cell Distribution Width 23.1 % (11.5-17.5)
[2024-03-12 09:16] LABS: MANUAL DIFFERENTIAL MANUAL DIFFERENTIAL (MANUAL DIFF)
[2024-03-12 09:23] LABS: Alanine Aminotransferase 17 U/L (12-78); Albumin Level 3.4 g/dl (3.5-5.0); Albumin/Globulin Ratio 1.4 (1.1-1.8); Alkaline Phosphatase 57 U/L (38-126); Anion Gap 8.4 mEq/L (5-15); Aspartate Amino Transferase 30 U/L (14-36); Bilirubin,Total 0.5 mg/dl (0.2-1.3); Blood Urea Nitrogen 7 mg/dl (7-17); Calcium 8.7 mg/dl (8.4-10.2); Carbon Dioxide 22 mmol/L (22.0-30.0); Chloride 114 mmol/L (98-107); Creatinine Clearance Estimated 52 mL/min (50-200); Estimated Glomerular Filt Rate 70 ml/min (>60); GFR (African American) 85 ML/MIN (>60); Globulin 2.4 g/dL (1.3-3.2); Glucose 141 mg/dl (74-100); Potassium 3.4 mmoL/L (3.5-5.1); Sodium 141 mmol/L (136-145); Total Protein,Serum 5.8 g/dl (6.3-8.2)
[2024-03-12 09:32] LABS: Lymphocytes % 65 % (10-50); Monocytes % 21 % (2-9); Neutrophils % 14 % (42-76); Total Cells Counted 100
[2024-03-12 09:33] LABS: Platelet Estimate Moderate Increase
[2024-03-12 09:34] LABS: Anisocytosis 1+; Ovalocytes 1+; Schistocytes 1+
[2024-03-12] MEDS: SODIUM CHLORIDE 0.9% 10ML FLUSH SYRINGE 10 ML IV (10:18)
== END 2024-03-12 09:50 | disposition home or self-care (01) ==
LOC: INF 08:52
PROVIDERS: PCP Family Medicine; Visit Provider Internal Medicine Medical Oncology
DX: C92.00 Acute myeloblastic leukemia, not having achieved remission (principal)
CPT/HCPCS: 36591; 80053; 85007; 85025; 85027; J1642

== ENCOUNTER 2024-03-17 08:58 | Outpatient (CLI) | payer MEDICARE, BC, SELFPAY ==
[2024-03-17 09:03] VITALS: BMI 25.0
[2024-03-17 09:34] LABS: Basophils # 0.1 K/mm3 (0-0.2); Hematocrit 35.8 % (37.0-47.0); Hemoglobin 11.3 g/dL (12.2-16.2); Lymphocytes # 1.3 K/mm3 (0.7-4.5); Lymphocytes % 36.1 % (10-50); Mean Corpuscular HGB Conc 31.5 g/dL (31.8-35.4); Mean Corpuscular Hemoglobin 29.9 pg (27.0-31.2); Mean Corpuscular Volume 94.9 fl (81-99); Mean Platelet Volume 8.7 fl (7.4-10.4); Monocytes # 0.5 K/mm3 (0.1-1.0); Monocytes % 12.9 % (1.7-9.3); Neutrophils # 1.7 K/mm3 (1.8-7.8); Platelet Count 497 K/mm3 (142-424); Red Blood Count 3.77 M/mm3 (4.20-5.40); Red Cell Distribution Width 22.4 % (11.5-17.5); White Blood Count 3.5 K/mm3 (4.8-10.8)
[2024-03-17 09:38] LABS: Albumin Level 3.3 g/dl (3.5-5.0); Chloride 113 mmol/L (98-107); Potassium 3.1 mmoL/L (3.5-5.1); Sodium 143 mmol/L (136-145)
[2024-03-17 09:41] LABS: Alanine Aminotransferase 15 U/L (12-78); Albumin/Globulin Ratio 1.3 (1.1-1.8); Alkaline Phosphatase 62 U/L (38-126); Anion Gap 10.1 mEq/L (5-15); Aspartate Amino Transferase 34 U/L (14-36); Bilirubin,Total 0.5 mg/dl (0.2-1.3); Blood Urea Nitrogen 10 mg/dl (7-17); Calcium 8.8 mg/dl (8.4-10.2); Carbon Dioxide 23 mmol/L (22.0-30.0); Creatinine Clearance Estimated 52 mL/min (50-200); Estimated Glomerular Filt Rate 82 ml/min (>60); GFR (African American) 99 ML/MIN (>60); Globulin 2.6 g/dL (1.3-3.2); Glucose 162 mg/dl (74-100); Total Protein,Serum 5.9 g/dl (6.3-8.2)
[2024-03-17] MEDS: SODIUM CHLORIDE 0.9% 10ML FLUSH SYRINGE 10 ML IV (10:05)
--- NOTE | 2024-03-17 10:05 | PC.NURSE ---
1005-pt to d/c home; pt to take home potassium 40meq po x Q2h for total of 80meq.
== END 2024-03-17 10:05 | disposition home or self-care (01) ==
LOC: INF 09:00
PROVIDERS: PCP Family Medicine; Visit Provider Internal Medicine Medical Oncology
DX: C92.00 Acute myeloblastic leukemia, not having achieved remission (principal)
CPT/HCPCS: 36591; 80053; 85025; J1642

== ENCOUNTER 2024-03-19 09:02 | Outpatient (CLI) | payer MEDICARE, BC, SELFPAY ==
[2024-03-19 09:10] VITALS: BP 124/49; PULSE 76; RESP 18; O2SAT 98
[2024-03-19 09:35] LABS: Albumin Level 3.4 g/dl (3.5-5.0); Chloride 113 mmol/L (98-107); Sodium 142 mmol/L (136-145)
[2024-03-19 09:36] LABS: Potassium 3.4 mmoL/L (3.5-5.1)
[2024-03-19 09:38] LABS: Alanine Aminotransferase 17 U/L (12-78); Albumin/Globulin Ratio 1.4 (1.1-1.8); Alkaline Phosphatase 52 U/L (38-126); Anion Gap 8.4 mEq/L (5-15); Aspartate Amino Transferase 43 U/L (14-36); Bilirubin,Total 0.5 mg/dl (0.2-1.3); Blood Urea Nitrogen 12 mg/dl (7-17); Carbon Dioxide 24 mmol/L (22.0-30.0); Estimated Glomerular Filt Rate 82 ml/min (>60); GFR (African American) 99 ML/MIN (>60); Globulin 2.4 g/dL (1.3-3.2); Total Protein,Serum 5.8 g/dl (6.3-8.2)
[2024-03-19 09:39] LABS: Glucose 137 mg/dl (74-100)
[2024-03-19 09:55] LABS: Basophils # 0.1 K/mm3 (0-0.2); Basophils % 2.6 % (0.1-2.0); Eosinophils % 0.2 % (0.1-12.0); Hemoglobin 11.1 g/dL (12.2-16.2); Lymphocytes # 1.1 K/mm3 (0.7-4.5); Mean Corpuscular HGB Conc 31.6 g/dL (31.8-35.4); Mean Corpuscular Hemoglobin 30.1 pg (27.0-31.2); Mean Corpuscular Volume 95.1 fl (81-99); Mean Platelet Volume 9.1 fl (7.4-10.4); Monocytes # 0.3 K/mm3 (0.1-1.0); Monocytes % 9.2 % (1.7-9.3); Neutrophils # 1.8 K/mm3 (1.8-7.8); Platelet Count 423 K/mm3 (142-424); Red Blood Count 3.68 M/mm3 (4.20-5.40); Red Cell Distribution Width 22.4 % (11.5-17.5); White Blood Count 3.3 K/mm3 (4.8-10.8)
== END 2024-03-19 10:15 | disposition home or self-care (01) ==
LOC: INF 09:03
PROVIDERS: PCP Family Medicine; Visit Provider Internal Medicine Medical Oncology
DX: C95.90 Leukemia, unspecified not having achieved remission (principal)
CPT/HCPCS: 36591; 80053; 85025; J1642

== ENCOUNTER 2024-04-02 09:01 | Outpatient (CLI) | payer MEDICARE, BC, SELFPAY ==
[2024-04-02 09:07] VITALS: BMI 25.0
[2024-04-02 09:34] LABS: Hematocrit 30.4 % (37.0-47.0); Hemoglobin 10.1 g/dL (12.2-16.2); Mean Corpuscular Volume 93.3 fl (81-99); Red Blood Count 3.26 M/mm3 (4.20-5.40); White Blood Count 3.9 K/mm3 (4.8-10.8)
[2024-04-02 09:35] LABS: Albumin Level 3.4 g/dl (3.5-5.0); Basophils % 0.5 % (0.1-2.0); Chloride 107 mmol/L (98-107); Mean Corpuscular HGB Conc 33.2 g/dL (31.8-35.4); Monocytes % 6.4 % (1.7-9.3); Neutrophils % 72.8 % (37.0-80.0); Platelet Count 218 K/mm3 (142-424); Red Cell Distribution Width 18.3 % (11.5-17.5); Sodium 135 mmol/L (136-145)
[2024-04-02 09:36] LABS: Potassium 3.9 mmoL/L (3.5-5.1)
[2024-04-02 09:38] LABS: Alanine Aminotransferase 18 U/L (12-78); Anion Gap 6.9 mEq/L (5-15); Aspartate Amino Transferase 32 U/L (14-36); Blood Urea Nitrogen 10 mg/dl (7-17); Carbon Dioxide 25 mmol/L (22.0-30.0); Creatinine Clearance Estimated 52 mL/min (50-200); Estimated Glomerular Filt Rate 61 ml/min (>60); GFR (African American) 74 ML/MIN (>60); Lymphocytes # 0.7 K/mm3 (0.7-4.5); Monocytes # 0.3 K/mm3 (0.1-1.0); Neutrophils # 2.8 K/mm3 (1.8-7.8)
[2024-04-02 09:39] LABS: Albumin/Globulin Ratio 1.4 (1.1-1.8); Alkaline Phosphatase 47 U/L (38-126); Bilirubin,Total 0.5 mg/dl (0.2-1.3); Calcium 9.4 mg/dl (8.4-10.2); Globulin 2.4 g/dL (1.3-3.2); Glucose 118 mg/dl (74-100); Total Protein,Serum 5.8 g/dl (6.3-8.2)
[2024-04-02 09:57] LABS: Mean Platelet Volume 13.6 fl (7.4-10.4)
[2024-04-02] MEDS: SODIUM CHLORIDE 0.9% 10ML FLUSH SYRINGE 10 ML IV (11:02)
== END 2024-04-02 09:45 | disposition home or self-care (01) ==
LOC: INF 09:04
PROVIDERS: PCP Family Medicine; Visit Provider Internal Medicine Medical Oncology
DX: D61.818 Other pancytopenia (principal)
CPT/HCPCS: 36591; 80053; 85025; J1642

== ENCOUNTER 2024-04-04 08:48 | Outpatient (CLI) | payer MEDICARE, BC, SELFPAY ==
[2024-04-04 08:54] VITALS: BMI 25.0
[2024-04-04 09:18] LABS: Albumin Level 3.3 g/dl (3.5-5.0); Chloride 109 mmol/L (98-107)
[2024-04-04 09:19] LABS: Sodium 135 mmol/L (136-145)
[2024-04-04 09:21] LABS: Blood Urea Nitrogen 9 mg/dl (7-17); Creatinine Clearance Estimated 52 mL/min (50-200); Estimated Glomerular Filt Rate 70 ml/min (>60); GFR (African American) 85 ML/MIN (>60)
[2024-04-04 09:22] LABS: Alanine Aminotransferase 18 U/L (12-78); Albumin/Globulin Ratio 1.4 (1.1-1.8); Alkaline Phosphatase 45 U/L (38-126); Aspartate Amino Transferase 33 U/L (14-36); Bilirubin,Total 0.6 mg/dl (0.2-1.3); Calcium 9.2 mg/dl (8.4-10.2); Carbon Dioxide 24 mmol/L (22.0-30.0); Globulin 2.3 g/dL (1.3-3.2); Glucose 154 mg/dl (74-100); Total Protein,Serum 5.6 g/dl (6.3-8.2)
[2024-04-04 09:54] LABS: Basophils % 0.5 % (0.1-2.0); Eosinophils # 0.3 K/mm3 (0.0-0.4); Eosinophils % 1.5 % (0.1-12.0); Hematocrit 30.2 % (37.0-47.0); Hemoglobin 9.9 g/dL (12.2-16.2); Lymphocytes # 0.5 K/mm3 (0.7-4.5); Lymphocytes % 24.1 % (10-50); Mean Corpuscular HGB Conc 32.8 g/dL (31.8-35.4); Mean Corpuscular Volume 94.7 fl (81-99); Monocytes # 0.3 K/mm3 (0.1-1.0); Monocytes % 13.8 % (1.7-9.3); Neutrophils # 1.2 K/mm3 (1.8-7.8); Neutrophils % 59.6 % (37.0-80.0); Platelet Count 149 K/mm3 (142-424); Red Blood Count 3.19 M/mm3 (4.20-5.40); Red Cell Distribution Width 17.9 % (11.5-17.5)
== END 2024-04-04 10:00 | disposition home or self-care (01) ==
LOC: INF 08:50
PROVIDERS: PCP Family Medicine; Visit Provider Internal Medicine Medical Oncology
DX: C95.90 Leukemia, unspecified not having achieved remission (principal)
CPT/HCPCS: 36591; 80053; 85025; J1642

== ENCOUNTER 2024-04-07 09:54 | Outpatient (CLI) | payer MEDICARE, BC, SELFPAY ==
[2024-04-07 09:58] VITALS: BMI 25.9
[2024-04-07 10:41] LABS: Hemoglobin 10.6 g/dL (12.2-16.2); Mean Corpuscular Hemoglobin 32.2 pg (27.0-31.2); Mean Corpuscular Volume 97.3 fl (81-99); Red Blood Count 3.29 M/mm3 (4.20-5.40)
[2024-04-07 10:42] LABS: Lymphocytes % 41.7 % (10-50); Mean Corpuscular HGB Conc 33.1 g/dL (31.8-35.4); Mean Platelet Volume 10.1 fl (7.4-10.4); Monocytes % 31.3 % (1.7-9.3); Platelet Count 168 K/mm3 (142-424); Red Cell Distribution Width 18.6 % (11.5-17.5)
[2024-04-07 10:43] LABS: Lymphocytes # 0.4 K/mm3 (0.7-4.5); Monocytes # 0.3 K/mm3 (0.1-1.0); Neutrophils # 0.2 K/mm3 (1.8-7.8)
[2024-04-07 10:47] LABS: MANUAL DIFFERENTIAL MANUAL DIFFERENTIAL (MANUAL DIFF)
[2024-04-07 11:11] LABS: Alanine Aminotransferase 16 U/L (12-78); Albumin Level 3.5 g/dl (3.5-5.0); Albumin/Globulin Ratio 1.4 (1.1-1.8); Alkaline Phosphatase 48 U/L (38-126); Anion Gap 10.7 mEq/L (5-15); Aspartate Amino Transferase 33 U/L (14-36); Bilirubin,Total 0.7 mg/dl (0.2-1.3); Blood Urea Nitrogen 9 mg/dl (7-17); Calcium 9.4 mg/dl (8.4-10.2); Carbon Dioxide 23 mmol/L (22.0-30.0); Chloride 109 mmol/L (98-107); Creatinine Clearance Estimated 51 mL/min (50-200); Estimated Glomerular Filt Rate 70 ml/min (>60); GFR (African American) 85 ML/MIN (>60); Globulin 2.5 g/dL (1.3-3.2); Glucose 147 mg/dl (74-100); Potassium 3.7 mmoL/L (3.5-5.1); Sodium 139 mmol/L (136-145)
[2024-04-07 11:15] LABS: Lymphocytes % 50 % (10-50); Monocytes % 16 % (2-9); Neutrophils % 34 % (42-76); Total Cells Counted 50
[2024-04-07 11:16] LABS: Platelet Estimate Normal; RBC Morphology Normal
[2024-04-07] MEDS: SODIUM CHLORIDE 0.9% 10ML FLUSH SYRINGE 10 ML IV (11:16)
== END 2024-04-07 11:18 | disposition home or self-care (01) ==
LOC: INF 09:56
PROVIDERS: PCP Family Medicine; Visit Provider Internal Medicine Medical Oncology
DX: C95.90 Leukemia, unspecified not having achieved remission (principal)
CPT/HCPCS: 36591; 80053; 85007; 85025; J1642

== ENCOUNTER 2024-04-11 08:53 | Outpatient (CLI) | payer MEDICARE, BC, SELFPAY ==
[2024-04-11 08:59] VITALS: BMI 26.6
[2024-04-11 09:25] LABS: Basophils % 0.8 % (0.1-2.0); Hematocrit 32.1 % (37.0-47.0); Hemoglobin 10.8 g/dL (12.2-16.2); Lymphocytes # 0.5 K/mm3 (0.7-4.5); Lymphocytes % 41.7 % (10-50); Mean Corpuscular HGB Conc 33.6 g/dL (31.8-35.4); Mean Corpuscular Hemoglobin 32.4 pg (27.0-31.2); Mean Corpuscular Volume 96.4 fl (81-99); Mean Platelet Volume 8.9 fl (7.4-10.4); Monocytes # 0.1 K/mm3 (0.1-1.0); Monocytes % 10.8 % (1.7-9.3); Neutrophils # 0.6 K/mm3 (1.8-7.8); Neutrophils % 46.7 % (37.0-80.0); Platelet Count 99 K/mm3 (142-424); Red Blood Count 3.33 M/mm3 (4.20-5.40); Red Cell Distribution Width 17.8 % (11.5-17.5); White Blood Count 1.2 K/mm3 (4.8-10.8)
[2024-04-11 09:27] LABS: Chloride 106 mmol/L (98-107)
[2024-04-11 09:28] LABS: Albumin Level 3.8 g/dl (3.5-5.0); Potassium 3.9 mmoL/L (3.5-5.1); Sodium 136 mmol/L (136-145)
[2024-04-11 09:30] LABS: Blood Urea Nitrogen 12 mg/dl (7-17); Creatinine Clearance Estimated 52 mL/min (50-200); Estimated Glomerular Filt Rate 70 ml/min (>60); GFR (African American) 85 ML/MIN (>60)
[2024-04-11 09:31] LABS: Alanine Aminotransferase 17 U/L (12-78); Albumin/Globulin Ratio 1.7 (1.1-1.8); Alkaline Phosphatase 46 U/L (38-126); Anion Gap 9.9 mEq/L (5-15); Aspartate Amino Transferase 34 U/L (14-36); Bilirubin,Total 0.6 mg/dl (0.2-1.3); Carbon Dioxide 24 mmol/L (22.0-30.0); Globulin 2.3 g/dL (1.3-3.2); Glucose 121 mg/dl (74-100); Total Protein,Serum 6.1 g/dl (6.3-8.2)
[2024-04-11] MEDS: SODIUM CHLORIDE 0.9% 10ML FLUSH SYRINGE 10 ML IV (12:39)
== END 2024-04-11 09:23 | disposition home or self-care (01) ==
LOC: INF 08:54
PROVIDERS: PCP Family Medicine; Visit Provider Internal Medicine Medical Oncology
DX: C95.90 Leukemia, unspecified not having achieved remission (principal)
CPT/HCPCS: 36591; 80053; 85025; J1642

== ENCOUNTER 2024-04-14 08:53 | Outpatient (CLI) | payer MEDICARE, BC, SELFPAY ==
[2024-04-14 08:58] VITALS: BMI 25.0
[2024-04-14 09:12] LABS: Eosinophils % 0.9 % (0.1-12.0); Hematocrit 31.6 % (37.0-47.0); Hemoglobin 10.8 g/dL (12.2-16.2); Lymphocytes # 0.4 K/mm3 (0.7-4.5); Lymphocytes % 33.3 % (10-50); Mean Corpuscular HGB Conc 34.2 g/dL (31.8-35.4); Mean Corpuscular Hemoglobin 32.8 pg (27.0-31.2); Monocytes % 2.7 % (1.7-9.3); Neutrophils # 0.7 K/mm3 (1.8-7.8); Neutrophils % 63.1 % (37.0-80.0); Red Blood Count 3.29 M/mm3 (4.20-5.40); Red Cell Distribution Width 16.3 % (11.5-17.5); White Blood Count 1.1 K/mm3 (4.8-10.8)
[2024-04-14] MEDS: SODIUM CHLORIDE 0.9% 10ML FLUSH SYRINGE 10 ML IV (09:15)
[2024-04-14 09:31] LABS: Alanine Aminotransferase 16 U/L (12-78); Albumin Level 3.9 g/dl (3.5-5.0); Albumin/Globulin Ratio 1.7 (1.1-1.8); Alkaline Phosphatase 46 U/L (38-126); Anion Gap 12.9 mEq/L (5-15); Aspartate Amino Transferase 30 U/L (14-36); Bilirubin,Total 0.8 mg/dl (0.2-1.3); Blood Urea Nitrogen 13 mg/dl (7-17); Calcium 9.9 mg/dl (8.4-10.2); Carbon Dioxide 22 mmol/L (22.0-30.0); Chloride 106 mmol/L (98-107); Creatinine Clearance Estimated 52 mL/min (50-200); Estimated Glomerular Filt Rate 70 ml/min (>60); GFR (African American) 85 ML/MIN (>60); Globulin 2.3 g/dL (1.3-3.2); Glucose 138 mg/dl (74-100); Potassium 3.9 mmoL/L (3.5-5.1); Sodium 137 mmol/L (136-145); Total Protein,Serum 6.2 g/dl (6.3-8.2)
[2024-04-14 09:34] LABS: Platelet Count 33 K/mm3 (142-424)
== END 2024-04-14 09:30 | disposition home or self-care (01) ==
LOC: INF 08:55
PROVIDERS: PCP Family Medicine; Visit Provider Internal Medicine Medical Oncology
DX: D69.6 Thrombocytopenia, unspecified (principal)
CPT/HCPCS: 36591; 80053; 85025; J1642

== ENCOUNTER 2024-04-18 09:03 | Outpatient (CLI) | payer MEDICARE, BC, SELFPAY ==
[2024-04-18] VITALS (7 sets, daily range): BP systolic 105–121; BP diastolic 48–75; PULSE 78–86; RESP 18; TEMP 36.7–36.8; O2SAT 98–99; BMI 26.6
[2024-04-18 09:25] LABS: Hematocrit 30.1 % (37.0-47.0); Hemoglobin 10.2 g/dL (12.2-16.2); Lymphocytes # 0.7 K/mm3 (0.7-4.5); Lymphocytes % 97.4 % (10-50); Mean Corpuscular HGB Conc 33.9 g/dL (31.8-35.4); Mean Corpuscular Hemoglobin 32.7 pg (27.0-31.2); Mean Corpuscular Volume 96.5 fl (81-99); Monocytes % 1.3 % (1.7-9.3); Red Blood Count 3.12 M/mm3 (4.20-5.40); Red Cell Distribution Width 15.4 % (11.5-17.5)
[2024-04-18 09:28] LABS: Albumin Level 3.9 g/dl (3.5-5.0); Chloride 105 mmol/L (98-107); Potassium 4.1 mmoL/L (3.5-5.1); Sodium 138 mmol/L (136-145)
[2024-04-18 09:31] LABS: Alanine Aminotransferase 15 U/L (12-78); Albumin/Globulin Ratio 1.6 (1.1-1.8); Alkaline Phosphatase 44 U/L (38-126); Anion Gap 13.1 mEq/L (5-15); Aspartate Amino Transferase 27 U/L (14-36); Bilirubin,Total 0.4 mg/dl (0.2-1.3); Blood Urea Nitrogen 17 mg/dl (7-17); Carbon Dioxide 24 mmol/L (22.0-30.0); Creatinine Clearance Estimated 52 mL/min (50-200); Estimated Glomerular Filt Rate 70 ml/min (>60); GFR (African American) 85 ML/MIN (>60); Globulin 2.5 g/dL (1.3-3.2); Total Protein,Serum 6.4 g/dl (6.3-8.2)
[2024-04-18 09:32] LABS: Calcium 10.1 mg/dl (8.4-10.2); Glucose 130 mg/dl (74-100)
[2024-04-18 09:33] LABS: Neutrophils % 1.3 % (37.0-80.0)
[2024-04-18 09:34] LABS: White Blood Count 0.8 K/mm3 (4.8-10.8)
[2024-04-18 09:35] LABS: Platelet Count 5 K/mm3 (142-424)
[2024-04-18 09:37] LABS: MANUAL DIFFERENTIAL MANUAL DIFFERENTIAL (MANUAL DIFF)
[2024-04-18 09:59] LABS: Lymphocytes % 92 % (10-50); Monocytes % 4 % (2-9); Neutrophils % 4 % (42-76); RBC Morphology Normal; Total Cells Counted 25
[2024-04-18 10:00] LABS: Platelet Estimate Marked Decrease
[2024-04-18] MEDS: SODIUM CHLORIDE 0.9% 10ML FLUSH SYRINGE 10 ML IV (15:01)
[2024-04-18] MEDS: 0.9 % SODIUM CHLORIDE 250 ML 25 ML IV (15:01)
== END 2024-04-18 15:17 | disposition home or self-care (01) ==
LOC: INF 09:03
PROVIDERS: PCP Family Medicine; Visit Provider Internal Medicine Medical Oncology
DX: C95.90 Leukemia, unspecified not having achieved remission (principal)
CPT/HCPCS: 36430; 80053; 85007; 85025; 86900; 86901; J1642; P9034

== ENCOUNTER 2024-04-23 09:01 | Outpatient (CLI) | payer MEDICARE, BC, SELFPAY ==
[2024-04-23] VITALS (7 sets, daily range): BP systolic 113–130; BP diastolic 50–58; PULSE 71–83; RESP 20; TEMP 36.3–36.6; O2SAT 99–100; BMI 25.0
[2024-04-23 09:22] LABS: Hematocrit 28.6 % (37.0-47.0); Hemoglobin 9.9 g/dL (12.2-16.2); Mean Corpuscular HGB Conc 34.6 g/dL (31.8-35.4); Mean Corpuscular Volume 95.3 fl (81-99); Red Cell Distribution Width 13.6 % (11.5-17.5)
[2024-04-23 09:26] LABS: Platelet Count 4 K/mm3 (142-424)
[2024-04-23 09:27] LABS: MANUAL DIFFERENTIAL MANUAL DIFFERENTIAL (MANUAL DIFF)
[2024-04-23 09:33] LABS: Chloride 106 mmol/L (98-107); Potassium 3.9 mmoL/L (3.5-5.1); Sodium 141 mmol/L (136-145)
[2024-04-23 09:35] LABS: Blood Urea Nitrogen 19 mg/dl (7-17); Creatinine Clearance Estimated 52 mL/min (50-200); Estimated Glomerular Filt Rate 70 ml/min (>60); GFR (African American) 85 ML/MIN (>60)
[2024-04-23 09:36] LABS: Alanine Aminotransferase 15 U/L (12-78); Albumin/Globulin Ratio 1.5 (1.1-1.8); Alkaline Phosphatase 46 U/L (38-126); Anion Gap 14.9 mEq/L (5-15); Aspartate Amino Transferase 26 U/L (14-36); Bilirubin,Total 0.5 mg/dl (0.2-1.3); Calcium 10.2 mg/dl (8.4-10.2); Carbon Dioxide 24 mmol/L (22.0-30.0); Globulin 2.6 g/dL (1.3-3.2); Glucose 148 mg/dl (74-100); Total Protein,Serum 6.6 g/dl (6.3-8.2)
--- NOTE | 2024-04-23 09:42 | PC.NURSE ---
04/23/24 0930 Lab staff present with pt and h staff. Brielle Scott RN obtained blood from existing pac access line with lab witness for platelet transfusion. Platelet transfusion to be ordered from [facility]. Pt leaving with and will call pt to return once platelets are delivered.
[2024-04-23 10:00] LABS: Lymphocytes % 98 % (10-50); Neutrophils % 2 % (42-76); Platelet Estimate Marked Decrease; RBC Morphology Normal; Total Cells Counted 50
[2024-04-23] MEDS: 0.9 % SODIUM CHLORIDE 250 ML 25 ML IV (11:55)
--- NOTE | 2024-04-23 12:19 | PC.NURSE ---
04/23/24 [facility] contacted nursing staff that platelets have been delivered. Contacted pt via cellphone and informed her of the platelet arrival and to return for transfusion. Pt verbalized understanding.
== END 2024-04-23 13:30 | disposition home or self-care (01) ==
LOC: INF 09:03
PROVIDERS: PCP Family Medicine; Visit Provider Internal Medicine Medical Oncology
DX: C92.00 Acute myeloblastic leukemia, not having achieved remission (principal)
CPT/HCPCS: 36430; 80053; 85007; 85025; 85027; 86900; 86901; J1642; P9034

== ENCOUNTER 2024-04-25 09:05 | Outpatient (CLI) | payer MEDICARE, BC, SELFPAY ==
[2024-04-25 09:10] VITALS: BMI 26.6
[2024-04-25 09:40] LABS: Hematocrit 27.6 % (37.0-47.0); Hemoglobin 9.5 g/dL (12.2-16.2); Lymphocytes # 0.8 K/mm3 (0.7-4.5); Mean Corpuscular HGB Conc 34.4 g/dL (31.8-35.4); Mean Corpuscular Hemoglobin 32.8 pg (27.0-31.2); Mean Corpuscular Volume 95.2 fl (81-99); Red Cell Distribution Width 13.3 % (11.5-17.5)
[2024-04-25 09:44] LABS: Chloride 107 mmol/L (98-107)
[2024-04-25 09:45] LABS: Albumin Level 4.1 g/dl (3.5-5.0); Sodium 142 mmol/L (136-145)
[2024-04-25 09:47] LABS: Blood Urea Nitrogen 18 mg/dl (7-17); Creatinine Clearance Estimated 52 mL/min (50-200); Estimated Glomerular Filt Rate 70 ml/min (>60); GFR (African American) 85 ML/MIN (>60)
[2024-04-25 09:48] LABS: Alanine Aminotransferase 15 U/L (12-78); Albumin/Globulin Ratio 1.6 (1.1-1.8); Alkaline Phosphatase 49 U/L (38-126); Aspartate Amino Transferase 25 U/L (14-36); Bilirubin,Total 0.4 mg/dl (0.2-1.3); Calcium 10.2 mg/dl (8.4-10.2); Carbon Dioxide 25 mmol/L (22.0-30.0); Globulin 2.5 g/dL (1.3-3.2); Glucose 169 mg/dl (74-100); Total Protein,Serum 6.6 g/dl (6.3-8.2)
[2024-04-25 09:51] LABS: Platelet Count 28 K/mm3 (142-424); White Blood Count 0.8 K/mm3 (4.8-10.8)
[2024-04-25 09:53] LABS: MANUAL DIFFERENTIAL MANUAL DIFFERENTIAL (MANUAL DIFF)
[2024-04-25 10:51] LABS: Lymphocytes % 100 % (10-50); Platelet Estimate Marked Decrease; RBC Morphology Normal; Total Cells Counted 25
== END 2024-04-25 10:05 | disposition home or self-care (01) ==
PROVIDERS: PCP Family Medicine; Visit Provider Internal Medicine Medical Oncology
DX: C95.90 Leukemia, unspecified not having achieved remission (principal)
CPT/HCPCS: 36591; 80053; 85007; 85025; 85027; J1642

== ENCOUNTER 2024-04-28 09:00 | Outpatient (CLI) | payer MEDICARE, BC, SELFPAY ==
[2024-04-28] VITALS (7 sets, daily range): BP systolic 117–127; BP diastolic 52–59; PULSE 77–86; RESP 14–18; TEMP 36.8–37.2; O2SAT 99–100; BMI 25.0
[2024-04-28 09:34] LABS: Hematocrit 24.8 % (37.0-47.0); Hemoglobin 8.7 g/dL (12.2-16.2); Lymphocytes # 0.8 K/mm3 (0.7-4.5); Lymphocytes % 98.8 % (10-50); Mean Corpuscular HGB Conc 35.1 g/dL (31.8-35.4); Mean Corpuscular Hemoglobin 32.7 pg (27.0-31.2); Mean Corpuscular Volume 93.2 fl (81-99); Red Blood Count 2.66 M/mm3 (4.20-5.40); Red Cell Distribution Width 12.7 % (11.5-17.5)
[2024-04-28 09:39] LABS: Neutrophils % 1.2 % (37.0-80.0); White Blood Count 0.8 K/mm3 (4.8-10.8)
[2024-04-28 09:40] LABS: Platelet Count 5 K/mm3 (142-424)
[2024-04-28 09:41] LABS: MANUAL DIFFERENTIAL MANUAL DIFFERENTIAL (MANUAL DIFF)
[2024-04-28 09:51] LABS: Alanine Aminotransferase 14 U/L (12-78); Albumin Level 3.9 g/dl (3.5-5.0); Albumin/Globulin Ratio 1.5 (1.1-1.8); Alkaline Phosphatase 47 U/L (38-126); Anion Gap 12.9 mEq/L (5-15); Aspartate Amino Transferase 22 U/L (14-36); Bilirubin,Total 0.2 mg/dl (0.2-1.3); Blood Urea Nitrogen 16 mg/dl (7-17); Calcium 9.6 mg/dl (8.4-10.2); Carbon Dioxide 24 mmol/L (22.0-30.0); Chloride 105 mmol/L (98-107); Creatinine Clearance Estimated 52 mL/min (50-200); Estimated Glomerular Filt Rate 70 ml/min (>60); GFR (African American) 85 ML/MIN (>60); Globulin 2.6 g/dL (1.3-3.2); Glucose 157 mg/dl (74-100); Potassium 3.9 mmoL/L (3.5-5.1); Sodium 138 mmol/L (136-145); Total Protein,Serum 6.5 g/dl (6.3-8.2)
[2024-04-28 11:24] LABS: Lymphocytes % 100 % (10-50); Platelet Estimate Marked Decrease; RBC Morphology Normal; Total Cells Counted 25
[2024-04-28] MEDS: 0.9 % SODIUM CHLORIDE 250 ML 25 ML IV (13:49)
[2024-04-28] MEDS: SODIUM CHLORIDE 0.9% 10ML FLUSH SYRINGE 10 ML IV (14:45)
--- NOTE | 2024-04-28 14:52 | PC.NURSE ---
1445 30 minute platelet post transfusion vital signs BP 123/53, resp 16, O2 sat 99%, pulse 78, temp 98.2. Patient discharged home/stable. Patient denies complaints/tolerated one unit platelets well with no s/s transfusion reaction or problems noted.
== END 2024-04-28 14:50 | disposition home or self-care (01) ==
LOC: INF 09:02
PROVIDERS: PCP Family Medicine; Visit Provider Internal Medicine Medical Oncology
DX: C92.00 Acute myeloblastic leukemia, not having achieved remission (principal)
CPT/HCPCS: 36430; 80053; 85007; 85025; 86900; 86901; J1642; P9034

== ENCOUNTER 2024-04-30 09:06 | Outpatient (CLI) | payer MEDICARE, BC, SELFPAY ==
[2024-04-30 09:27] LABS: Hematocrit 23.5 % (37.0-47.0); Hemoglobin 8.2 g/dL (12.2-16.2); Lymphocytes # 0.9 K/mm3 (0.7-4.5); Lymphocytes % 98.9 % (10-50); Mean Corpuscular HGB Conc 34.9 g/dL (31.8-35.4); Mean Corpuscular Hemoglobin 32.4 pg (27.0-31.2); Mean Corpuscular Volume 92.9 fl (81-99); Mean Platelet Volume 9.8 fl (7.4-10.4); Monocytes % 1.1 % (1.7-9.3); Red Blood Count 2.53 M/mm3 (4.20-5.40); Red Cell Distribution Width 12.5 % (11.5-17.5)
[2024-04-30 09:29] LABS: Platelet Count 26 K/mm3 (142-424); White Blood Count 0.9 K/mm3 (4.8-10.8)
[2024-04-30] MEDS: SODIUM CHLORIDE 0.9% 10ML FLUSH SYRINGE 10 ML IV (09:30)
[2024-04-30 09:31] LABS: MANUAL DIFFERENTIAL MANUAL DIFFERENTIAL (MANUAL DIFF)
[2024-04-30 09:39] LABS: Alanine Aminotransferase 14 U/L (12-78); Albumin/Globulin Ratio 1.5 (1.1-1.8); Alkaline Phosphatase 48 U/L (38-126); Anion Gap 10.8 mEq/L (5-15); Aspartate Amino Transferase 22 U/L (14-36); Bilirubin,Total 0.3 mg/dl (0.2-1.3); Blood Urea Nitrogen 15 mg/dl (7-17); Calcium 9.9 mg/dl (8.4-10.2); Carbon Dioxide 25 mmol/L (22.0-30.0); Chloride 107 mmol/L (98-107); Estimated Glomerular Filt Rate 82 ml/min (>60); GFR (African American) 99 ML/MIN (>60); Globulin 2.7 g/dL (1.3-3.2); Glucose 164 mg/dl (74-100); Potassium 3.8 mmoL/L (3.5-5.1); Sodium 139 mmol/L (136-145); Total Protein,Serum 6.7 g/dl (6.3-8.2)
[2024-04-30 09:43] LABS: Lymphocytes % 100 % (10-50); Total Cells Counted 15
[2024-04-30 09:44] LABS: Ovalocytes 1+; Platelet Estimate Marked Decrease; Poikilocytosis 1+
== END 2024-04-30 09:35 | disposition home or self-care (01) ==
LOC: INF 09:07
PROVIDERS: PCP Family Medicine; Visit Provider Internal Medicine Medical Oncology
DX: C95.90 Leukemia, unspecified not having achieved remission (principal)
CPT/HCPCS: 36591; 80053; 85007; 85025; J1642

== ENCOUNTER 2024-05-02 09:05 | Outpatient (CLI) | payer MEDICARE, BC, SELFPAY ==
[2024-05-02 09:13] VITALS: BMI 25.0
[2024-05-02] MEDS: SODIUM CHLORIDE 0.9% 10ML FLUSH SYRINGE 10 ML IV (09:25)
[2024-05-02 09:31] LABS: Hematocrit 22.4 % (37.0-47.0); Lymphocytes # 0.6 K/mm3 (0.7-4.5); Lymphocytes % 98.4 % (10-50); Mean Corpuscular HGB Conc 35.7 g/dL (31.8-35.4); Mean Corpuscular Hemoglobin 33.2 pg (27.0-31.2); Mean Corpuscular Volume 92.9 fl (81-99); Monocytes % 1.6 % (1.7-9.3); Red Blood Count 2.41 M/mm3 (4.20-5.40); Red Cell Distribution Width 12.1 % (11.5-17.5)
[2024-05-02 09:33] LABS: White Blood Count 0.6 K/mm3 (4.8-10.8)
[2024-05-02 09:34] LABS: MANUAL DIFFERENTIAL MANUAL DIFFERENTIAL (MANUAL DIFF); Platelet Count 11 K/mm3 (142-424)
[2024-05-02 09:39] LABS: Alanine Aminotransferase 14 U/L (12-78); Albumin/Globulin Ratio 1.4 (1.1-1.8); Alkaline Phosphatase 49 U/L (38-126); Aspartate Amino Transferase 22 U/L (14-36); Bilirubin,Total 0.2 mg/dl (0.2-1.3); Blood Urea Nitrogen 20 mg/dl (7-17); Calcium 9.8 mg/dl (8.4-10.2); Carbon Dioxide 24 mmol/L (22.0-30.0); Chloride 105 mmol/L (98-107); Creatinine Clearance Estimated 52 mL/min (50-200); Estimated Glomerular Filt Rate 61 ml/min (>60); GFR (African American) 74 ML/MIN (>60); Globulin 2.8 g/dL (1.3-3.2); Glucose 167 mg/dl (74-100); Sodium 138 mmol/L (136-145); Total Protein,Serum 6.8 g/dl (6.3-8.2)
[2024-05-02 09:45] LABS: Anion Gap 12.9 mEq/L (5-15); Potassium 3.9 mmoL/L (3.5-5.1)
[2024-05-02 11:25] LABS: Lymphocytes % 96 % (10-50); Monocytes % 4 % (2-9); Platelet Estimate Marked Decrease; RBC Morphology Normal; Total Cells Counted 25
== END 2024-05-02 10:08 | disposition home or self-care (01) ==
LOC: INF 09:07
PROVIDERS: PCP Family Medicine; Visit Provider Internal Medicine Medical Oncology
DX: C92.00 Acute myeloblastic leukemia, not having achieved remission (principal)
CPT/HCPCS: 36591; 80053; 85007; 85025; J1642

== ENCOUNTER 2024-05-09 08:53 | Outpatient (CLI) | payer MEDICARE, BC, SELFPAY ==
[2024-05-09 08:56] VITALS: BMI 25.0
[2024-05-09 09:24] LABS: Hematocrit 23.3 % (37.0-47.0); Lymphocytes # 0.9 K/mm3 (0.7-4.5); Lymphocytes % 97.9 % (10-50); Mean Corpuscular HGB Conc 34.3 g/dL (31.8-35.4); Mean Corpuscular Hemoglobin 31.6 pg (27.0-31.2); Mean Corpuscular Volume 92.1 fl (81-99); Mean Platelet Volume 8.8 fl (7.4-10.4); Red Blood Count 2.53 M/mm3 (4.20-5.40); Red Cell Distribution Width 11.9 % (11.5-17.5)
[2024-05-09 09:31] LABS: Neutrophils % 2.1 % (37.0-80.0)
[2024-05-09 09:32] LABS: MANUAL DIFFERENTIAL MANUAL DIFFERENTIAL (MANUAL DIFF); Platelet Count 15 K/mm3 (142-424)
[2024-05-09] MEDS: SODIUM CHLORIDE 0.9% 10ML FLUSH SYRINGE 10 ML IV (09:35)
[2024-05-09 09:39] VITALS: BP 133/58; PULSE 94; RESP 18; TEMP 35.9; O2SAT 100
[2024-05-09 10:10] LABS: Lymphocytes % 96 % (10-50); Neutrophils % 4 % (42-76); Platelet Estimate Marked Decrease; RBC Morphology Normal; Total Cells Counted 25
[2024-05-09 10:40] LABS: Albumin Level 3.8 g/dl (3.5-5.0); Chloride 105 mmol/L (98-107); Sodium 139 mmol/L (136-145)
[2024-05-09 10:43] LABS: Alanine Aminotransferase 16 U/L (12-78); Albumin/Globulin Ratio 1.2 (1.1-1.8); Alkaline Phosphatase 49 U/L (38-126); Aspartate Amino Transferase 23 U/L (14-36); Bilirubin,Total 0.4 mg/dl (0.2-1.3); Blood Urea Nitrogen 22 mg/dl (7-17); Calcium 9.7 mg/dl (8.4-10.2); Carbon Dioxide 23 mmol/L (22.0-30.0); Creatinine Clearance Estimated 52 mL/min (50-200); Estimated Glomerular Filt Rate 70 ml/min (>60); GFR (African American) 85 ML/MIN (>60); Globulin 3.1 g/dL (1.3-3.2); Glucose 179 mg/dl (74-100); Total Protein,Serum 6.9 g/dl (6.3-8.2)
== END 2024-05-09 09:39 | disposition home or self-care (01) ==
LOC: INF 08:54
PROVIDERS: PCP Family Medicine; Visit Provider Internal Medicine Medical Oncology
DX: C95.90 Leukemia, unspecified not having achieved remission (principal)
CPT/HCPCS: 36591; 80053; 85007; 85025; J1642

== ENCOUNTER 2024-05-12 08:59 | Outpatient (CLI) | payer MEDICARE, BC, SELFPAY ==
[2024-05-12 09:01] VITALS: BMI 26.6
[2024-05-12 09:16] LABS: Hematocrit 22.5 % (37.0-47.0); Hemoglobin 7.7 g/dL (12.2-16.2); Lymphocytes # 1.1 K/mm3 (0.7-4.5); Lymphocytes % 97.3 % (10-50); Mean Corpuscular HGB Conc 34.2 g/dL (31.8-35.4); Mean Corpuscular Hemoglobin 31.8 pg (27.0-31.2); Monocytes % 0.9 % (1.7-9.3); Red Blood Count 2.42 M/mm3 (4.20-5.40); Red Cell Distribution Width 11.8 % (11.5-17.5); White Blood Count 1.1 K/mm3 (4.8-10.8)
[2024-05-12 09:27] LABS: Albumin Level 3.8 g/dl (3.5-5.0); Chloride 105 mmol/L (98-107); Sodium 137 mmol/L (136-145)
[2024-05-12 09:28] LABS: Potassium 4.1 mmoL/L (3.5-5.1)
[2024-05-12 09:30] LABS: Alanine Aminotransferase 16 U/L (12-78); Albumin/Globulin Ratio 1.3 (1.1-1.8); Anion Gap 13.1 mEq/L (5-15); Aspartate Amino Transferase 23 U/L (14-36); Bilirubin,Total 0.3 mg/dl (0.2-1.3); Blood Urea Nitrogen 22 mg/dl (7-17); Carbon Dioxide 23 mmol/L (22.0-30.0); Creatinine Clearance Estimated 52 mL/min (50-200); Estimated Glomerular Filt Rate 61 ml/min (>60); GFR (African American) 74 ML/MIN (>60); Total Protein,Serum 6.8 g/dl (6.3-8.2)
[2024-05-12 09:31] LABS: Alkaline Phosphatase 47 U/L (38-126); Calcium 9.8 mg/dl (8.4-10.2); Glucose 167 mg/dl (74-100)
[2024-05-12 09:35] LABS: Neutrophils % 1.8 % (37.0-80.0); Platelet Count 5 K/mm3 (142-424)
[2024-05-12 09:37] LABS: MANUAL DIFFERENTIAL MANUAL DIFFERENTIAL (MANUAL DIFF)
[2024-05-12 11:11] LABS: Lymphocytes % 96 % (10-50); Neutrophils % 4 % (42-76); Platelet Estimate Marked Decrease; RBC Morphology Normal; Total Cells Counted 25
[2024-05-12] MEDS: 0.9 % SODIUM CHLORIDE 250 ML 25 ML IV (13:39)
[2024-05-12 14:03] VITALS: BP 136/58; PULSE 88; RESP 18; TEMP 36.6; O2SAT 99
[2024-05-12 14:08] VITALS: BP 129/52; PULSE 90; RESP 18; TEMP 36.7; O2SAT 99
[2024-05-12 14:13] VITALS: BP 112/59; PULSE 85; RESP 18; TEMP 36.7; O2SAT 98
[2024-05-12 14:18] VITALS: BP 119/54; PULSE 81; RESP 18; TEMP 36.8; O2SAT 99
[2024-05-12 14:23] VITALS: BP 121/62; PULSE 83; RESP 18; TEMP 36.7; O2SAT 98
[2024-05-12 14:30] VITALS: BP 121/58; PULSE 83; RESP 18; TEMP 36.7; O2SAT 99
== END 2024-05-12 15:10 | disposition home or self-care (01) ==
LOC: INF 09:00
PROVIDERS: PCP Family Medicine; Visit Provider Internal Medicine Medical Oncology
DX: Z51.11 Encounter for antineoplastic chemotherapy (principal); C95.90 Leukemia, unspecified not having achieved remission; Z79.899 Other long term (current) drug therapy
CPT/HCPCS: 36430; 80053; 85007; 85025; 86900; 86901; J1642; P9034

== ENCOUNTER 2024-05-14 08:47 | Outpatient (CLI) | payer MEDICARE, BC, SELFPAY ==
[2024-05-14 08:51] VITALS: BMI 25.0
[2024-05-14] MEDS: SODIUM CHLORIDE 0.9% 10ML FLUSH SYRINGE 10 ML IV (09:00)
[2024-05-14 09:22] LABS: Hematocrit 31.7 % (37.0-47.0); Hemoglobin 11.1 g/dL (12.2-16.2); Lymphocytes # 0.7 K/mm3 (0.7-4.5); Lymphocytes % 97.1 % (10-50); Mean Corpuscular Hemoglobin 32.4 pg (27.0-31.2); Mean Corpuscular Volume 92.4 fl (81-99); Monocytes % 1.4 % (1.7-9.3); Red Blood Count 3.43 M/mm3 (4.20-5.40); Red Cell Distribution Width 11.8 % (11.5-17.5)
[2024-05-14 09:23] LABS: Albumin Level 3.8 g/dl (3.5-5.0); Chloride 104 mmol/L (98-107); Sodium 138 mmol/L (136-145)
[2024-05-14 09:25] LABS: Blood Urea Nitrogen 20 mg/dl (7-17); Creatinine Clearance Estimated 52 mL/min (50-200); Estimated Glomerular Filt Rate 70 ml/min (>60); GFR (African American) 85 ML/MIN (>60)
[2024-05-14 09:26] LABS: Alanine Aminotransferase 17 U/L (12-78); Albumin/Globulin Ratio 1.3 (1.1-1.8); Alkaline Phosphatase 48 U/L (38-126); Aspartate Amino Transferase 39 U/L (14-36); Bilirubin,Total 0.2 mg/dl (0.2-1.3); Calcium 9.7 mg/dl (8.4-10.2); Carbon Dioxide 24 mmol/L (22.0-30.0); Glucose 184 mg/dl (74-100); Total Protein,Serum 6.8 g/dl (6.3-8.2)
[2024-05-14 09:35] LABS: Neutrophils % 1.5 % (37.0-80.0); Platelet Count 14 K/mm3 (142-424); White Blood Count 0.7 K/mm3 (4.8-10.8)
[2024-05-14 09:37] LABS: MANUAL DIFFERENTIAL MANUAL DIFFERENTIAL (MANUAL DIFF)
[2024-05-14 11:35] LABS: Lymphocytes % 96 % (10-50); Neutrophils % 4 % (42-76); Platelet Estimate Marked Decrease; RBC Morphology Normal; Total Cells Counted 25
== END 2024-05-14 09:45 | disposition home or self-care (01) ==
LOC: INF 08:48
PROVIDERS: PCP Family Medicine; Visit Provider Internal Medicine Medical Oncology
DX: C92.00 Acute myeloblastic leukemia, not having achieved remission (principal)
CPT/HCPCS: 36591; 80053; 85007; 85025; J1642

== ENCOUNTER 2024-05-16 08:55 | Outpatient (CLI) | payer MEDICARE, BC, SELFPAY ==
[2024-05-16] VITALS (7 sets, daily range): BP systolic 114–133; BP diastolic 42–47; PULSE 77–82; RESP 16–17; TEMP 36.7–36.9; O2SAT 100; BMI 25.0
[2024-05-16 09:24] LABS: Hemoglobin 7.3 g/dL (12.2-16.2); Lymphocytes % 97.9 % (10-50); Mean Corpuscular HGB Conc 34.9 g/dL (31.8-35.4); Mean Corpuscular Hemoglobin 32.2 pg (27.0-31.2); Mean Corpuscular Volume 92.1 fl (81-99); Red Blood Count 2.27 M/mm3 (4.20-5.40); Red Cell Distribution Width 11.7 % (11.5-17.5)
[2024-05-16 09:32] LABS: Neutrophils % 1.1 % (37.0-80.0)
[2024-05-16 09:34] LABS: Hematocrit 20.9 % (37.0-47.0); MANUAL DIFFERENTIAL MANUAL DIFFERENTIAL (MANUAL DIFF); Platelet Count 9 K/mm3 (142-424)
[2024-05-16 09:39] LABS: Alanine Aminotransferase 16 U/L (12-78); Albumin Level 3.9 g/dl (3.5-5.0); Albumin/Globulin Ratio 1.3 (1.1-1.8); Alkaline Phosphatase 47 U/L (38-126); Anion Gap 8.1 mEq/L (5-15); Aspartate Amino Transferase 25 U/L (14-36); Bilirubin,Total 0.3 mg/dl (0.2-1.3); Blood Urea Nitrogen 19 mg/dl (7-17); Calcium 9.9 mg/dl (8.4-10.2); Carbon Dioxide 25 mmol/L (22.0-30.0); Chloride 105 mmol/L (98-107); Creatinine Clearance Estimated 52 mL/min (50-200); Estimated Glomerular Filt Rate 70 ml/min (>60); GFR (African American) 85 ML/MIN (>60); Globulin 2.9 g/dL (1.3-3.2); Glucose 170 mg/dl (74-100); Potassium 4.1 mmoL/L (3.5-5.1); Sodium 134 mmol/L (136-145); Total Protein,Serum 6.8 g/dl (6.3-8.2)
[2024-05-16] MEDS: diphenhydrAMINE 25MG CAPSULE 25 MG PO (09:59)
[2024-05-16] MEDS: ACETAMINOPHEN 325MG TAB 650 MG PO (10:00)
[2024-05-16] MEDS: 0.9 % SODIUM CHLORIDE 250 ML 25 ML IV (10:00)
[2024-05-16 10:23] LABS: Lymphocytes % 100 % (10-50); Platelet Estimate Marked Decrease; RBC Morphology Normal; Total Cells Counted 25
--- NOTE | 2024-05-16 10:40 | PC.NURSE ---
1000-Premedicated with Tylenol 650mg PO and Benadryl 25mg PO at this time.
== END 2024-05-16 11:40 | disposition home or self-care (01) ==
LOC: INF 08:57
PROVIDERS: PCP Family Medicine; Visit Provider Internal Medicine Medical Oncology
DX: C92.00 Acute myeloblastic leukemia, not having achieved remission (principal)
CPT/HCPCS: 36430; 80053; 85007; 85025; 86900; 86901; J1642; P9034

== ENCOUNTER 2024-05-21 08:54 | Outpatient (CLI) | payer MEDICARE, BC, SELFPAY ==
[2024-05-21] VITALS (10 sets, daily range): BP systolic 101–155; BP diastolic 43–76; PULSE 78–86; RESP 16–17; TEMP 36.2–36.7; O2SAT 100; BMI 21.4
[2024-05-21 09:24] LABS: Albumin Level 4.2 g/dl (3.5-5.0); Chloride 105 mmol/L (98-107); Potassium 3.7 mmoL/L (3.5-5.1); Sodium 139 mmol/L (136-145)
[2024-05-21 09:27] LABS: Alanine Aminotransferase 19 U/L (12-78); Albumin/Globulin Ratio 1.6 (1.1-1.8); Alkaline Phosphatase 43 U/L (38-126); Anion Gap 13.7 mEq/L (5-15); Aspartate Amino Transferase 28 U/L (14-36); Bilirubin,Total 0.4 mg/dl (0.2-1.3); Blood Urea Nitrogen 21 mg/dl (7-17); Carbon Dioxide 24 mmol/L (22.0-30.0); Creatinine Clearance Estimated 45 mL/min (50-200); Estimated Glomerular Filt Rate 70 ml/min (>60); GFR (African American) 85 ML/MIN (>60); Globulin 2.6 g/dL (1.3-3.2); Total Protein,Serum 6.8 g/dl (6.3-8.2)
[2024-05-21 09:28] LABS: Calcium 9.8 mg/dl (8.4-10.2); Glucose 180 mg/dl (74-100); Lymphocytes # 1.2 K/mm3 (0.7-4.5); Lymphocytes % 96.9 % (10-50); Mean Corpuscular HGB Conc 34.9 g/dL (31.8-35.4); Mean Corpuscular Hemoglobin 31.4 pg (27.0-31.2); Mean Corpuscular Volume 90.1 fl (81-99); Monocytes % 0.8 % (1.7-9.3); Red Blood Count 1.91 M/mm3 (4.20-5.40); Red Cell Distribution Width 11.6 % (11.5-17.5); White Blood Count 1.3 K/mm3 (4.8-10.8)
[2024-05-21 09:40] LABS: Neutrophils % 2.3 % (37.0-80.0)
[2024-05-21 09:41] LABS: Hematocrit 17.2 % (37.0-47.0); Platelet Count 10 K/mm3 (142-424)
[2024-05-21 09:43] LABS: MANUAL DIFFERENTIAL MANUAL DIFFERENTIAL (MANUAL DIFF)
[2024-05-21 11:22] LABS: Lymphocytes % 92 % (10-50); Neutrophils % 8 % (42-76); Total Cells Counted 25
[2024-05-21 11:23] LABS: Platelet Estimate Marked Decrease; RBC Morphology Normal
[2024-05-21] MEDS: diphenhydrAMINE 25MG CAPSULE 25 MG PO (12:52)
[2024-05-21] MEDS: 0.9 % SODIUM CHLORIDE 250 ML 25 ML IV (12:53)
[2024-05-21] MEDS: ACETAMINOPHEN 325MG TAB 650 MG PO (12:53)
--- NOTE | 2024-05-21 13:59 | PC.NURSE ---
1352-Blood transfusion started at 100 ml/hr at this time.
--- NOTE | 2024-05-21 14:29 | PC.NURSE ---
1422-Increased rate to 150 ml/hr at this time.
--- NOTE | 2024-05-21 15:06 | PC.NURSE ---
1452-Increased rate to 200 ml/hr at this time.
--- NOTE | 2024-05-21 15:59 | PC.NURSE ---
Rate was increased to 250 ml/hr at 1522.
== END 2024-05-21 16:46 | disposition home or self-care (01) ==
LOC: INF 08:55
PROVIDERS: PCP Family Medicine; Visit Provider Internal Medicine Medical Oncology
DX: C92.00 Acute myeloblastic leukemia, not having achieved remission (principal)
CPT/HCPCS: 36430; 80053; 85007; 85025; 86850; J1642; P9016

== ENCOUNTER 2024-05-22 08:58 | Outpatient (CLI) | payer MEDICARE, BC, SELFPAY ==
[2024-05-22] VITALS (16 sets, daily range): BP systolic 112–138; BP diastolic 44–55; PULSE 73–80; RESP 16–17; TEMP 36.1–36.5; O2SAT 100
[2024-05-22] MEDS: ACETAMINOPHEN 325MG TAB 650 MG PO (09:06)
[2024-05-22] MEDS: diphenhydrAMINE 25MG CAPSULE 25 MG PO (09:06)
[2024-05-22] MEDS: SODIUM CHLORIDE 0.9% 250ML BAG 250 ML IV (09:18)
--- NOTE | 2024-05-22 09:45 | PC.NURSE ---
0940-Blood transfusion started at 100 ml/hr at this time. (Unit 2 of 2)
--- NOTE | 2024-05-22 10:34 | PC.NURSE ---
1010-Increased rate to 150 ml/hr at this time.
--- NOTE | 2024-05-22 11:15 | PC.NURSE ---
1040-Blood transfusion increased to 200 ml/hr at this time.
--- NOTE | 2024-05-22 11:46 | PC.NURSE ---
1110-Increased rate to 250 ml/hr at this time.
--- NOTE | 2024-05-22 12:08 | PC.NURSE ---
1204-Platelets started transfusing by gravity at this time.
== END 2024-05-22 13:10 | disposition home or self-care (01) ==
LOC: INF 09:00
PROVIDERS: PCP Family Medicine; Visit Provider Internal Medicine Medical Oncology
DX: D64.9 Anemia, unspecified (principal)
CPT/HCPCS: 36430; J1642; P9016; P9034

== ENCOUNTER 2024-05-23 08:58 | Outpatient (CLI) | payer MEDICARE, BC, SELFPAY ==
[2024-05-23 09:08] VITALS: BMI 26.6
[2024-05-23 09:25] LABS: Hematocrit 25.9 % (37.0-47.0); Hemoglobin 9.1 g/dL (12.2-16.2); Lymphocytes # 0.9 K/mm3 (0.7-4.5); Lymphocytes % 94.8 % (10-50); Mean Corpuscular HGB Conc 35.1 g/dL (31.8-35.4); Mean Corpuscular Hemoglobin 31.1 pg (27.0-31.2); Mean Corpuscular Volume 88.4 fl (81-99); Mean Platelet Volume 10.5 fl (7.4-10.4); Monocytes % 2.1 % (1.7-9.3); Red Blood Count 2.93 M/mm3 (4.20-5.40); Red Cell Distribution Width 12.4 % (11.5-17.5)
[2024-05-23] MEDS: SODIUM CHLORIDE 0.9% 10ML FLUSH SYRINGE 10 ML IV (09:28)
[2024-05-23 09:31] LABS: Chloride 106 mmol/L (98-107)
[2024-05-23 09:32] LABS: Albumin Level 3.8 g/dl (3.5-5.0); Sodium 139 mmol/L (136-145)
[2024-05-23 09:34] LABS: Blood Urea Nitrogen 21 mg/dl (7-17); Creatinine Clearance Estimated 52 mL/min (50-200); Estimated Glomerular Filt Rate 70 ml/min (>60); GFR (African American) 85 ML/MIN (>60)
[2024-05-23 09:35] LABS: Alanine Aminotransferase 17 U/L (12-78); Albumin/Globulin Ratio 1.4 (1.1-1.8); Alkaline Phosphatase 48 U/L (38-126); Aspartate Amino Transferase 29 U/L (14-36); Bilirubin,Total 0.4 mg/dl (0.2-1.3); Calcium 9.5 mg/dl (8.4-10.2); Carbon Dioxide 26 mmol/L (22.0-30.0); Globulin 2.8 g/dL (1.3-3.2); Glucose 140 mg/dl (74-100); Neutrophils % 3.1 % (37.0-80.0); Total Protein,Serum 6.6 g/dl (6.3-8.2)
[2024-05-23 09:36] LABS: Platelet Count 26 K/mm3 (142-424)
[2024-05-23 09:37] LABS: MANUAL DIFFERENTIAL MANUAL DIFFERENTIAL (MANUAL DIFF)
[2024-05-23 10:54] LABS: Lymphocytes % 96 % (10-50); Neutrophils % 4 % (42-76); Platelet Estimate Marked Decrease; RBC Morphology Normal; Total Cells Counted 25
== END 2024-05-23 09:40 | disposition home or self-care (01) ==
LOC: INF 08:59
PROVIDERS: PCP Family Medicine; Visit Provider Internal Medicine Medical Oncology
DX: C95.90 Leukemia, unspecified not having achieved remission (principal)
CPT/HCPCS: 36591; 80053; 85007; 85025; J1642

== ENCOUNTER 2024-05-26 08:53 | Outpatient (CLI) | payer MEDICARE, BC, SELFPAY ==
[2024-05-26] VITALS (7 sets, daily range): BP systolic 113–126; BP diastolic 46–49; PULSE 76–78; RESP 18; TEMP 36.4–36.6; O2SAT 100; BMI 20.7
[2024-05-26 09:11] LABS: Hematocrit 24.6 % (37.0-47.0); Hemoglobin 8.6 g/dL (12.2-16.2); Lymphocytes # 1.1 K/mm3 (0.7-4.5); Lymphocytes % 94.9 % (10-50); Mean Corpuscular Hemoglobin 31.3 pg (27.0-31.2); Mean Corpuscular Volume 89.5 fl (81-99); Mean Platelet Volume 8.2 fl (7.4-10.4); Monocytes % 1.7 % (1.7-9.3); Red Blood Count 2.75 M/mm3 (4.20-5.40); Red Cell Distribution Width 12.1 % (11.5-17.5); White Blood Count 1.2 K/mm3 (4.8-10.8)
[2024-05-26 09:13] LABS: Neutrophils % 3.4 % (37.0-80.0)
[2024-05-26 09:14] LABS: MANUAL DIFFERENTIAL MANUAL DIFFERENTIAL (MANUAL DIFF); Platelet Count 8 K/mm3 (142-424)
--- NOTE | 2024-05-26 09:19 | PC.NURSE ---
0919-k.jamir,phlebtomist here to witness type and screen collection; pt to receive 1 unit platelets for plt level of 8
[2024-05-26 09:33] LABS: Albumin Level 3.7 g/dl (3.5-5.0); Chloride 105 mmol/L (98-107)
[2024-05-26 09:34] LABS: Sodium 138 mmol/L (136-145)
[2024-05-26 09:36] LABS: Blood Urea Nitrogen 30 mg/dl (7-17); Creatinine Clearance Estimated 45 mL/min (50-200); Estimated Glomerular Filt Rate 61 ml/min (>60); GFR (African American) 74 ML/MIN (>60)
[2024-05-26 09:37] LABS: Alanine Aminotransferase 17 U/L (12-78); Albumin/Globulin Ratio 1.3 (1.1-1.8); Alkaline Phosphatase 47 U/L (38-126); Aspartate Amino Transferase 30 U/L (14-36); Bilirubin,Total 0.4 mg/dl (0.2-1.3); Calcium 9.8 mg/dl (8.4-10.2); Carbon Dioxide 26 mmol/L (22.0-30.0); Globulin 2.9 g/dL (1.3-3.2); Glucose 138 mg/dl (74-100); Total Protein,Serum 6.6 g/dl (6.3-8.2)
[2024-05-26 10:31] LABS: Lymphocytes % 92 % (10-50); Neutrophils % 8 % (42-76); Platelet Estimate Marked Decrease; RBC Morphology Normal; Total Cells Counted 25
[2024-05-26] MEDS: 0.9 % SODIUM CHLORIDE 250 ML 25 ML IV (14:55)
[2024-05-26] MEDS: SODIUM CHLORIDE 0.9% 10ML FLUSH SYRINGE 10 ML IV (15:25)
== END 2024-05-26 15:43 | disposition home or self-care (01) ==
LOC: INF 08:54
PROVIDERS: PCP Family Medicine; Visit Provider Internal Medicine Medical Oncology
DX: C92.00 Acute myeloblastic leukemia, not having achieved remission (principal)
CPT/HCPCS: 36430; 36591; 80053; 85007; 85025; 86900; 86901; J1642; P9034

== ENCOUNTER 2024-05-30 09:04 | Outpatient (CLI) | payer MEDICARE, BC, SELFPAY ==
[2024-05-30] VITALS (7 sets, daily range): BP systolic 112–144; BP diastolic 44–51; PULSE 77–83; RESP 18; TEMP 36.7–36.9; O2SAT 98–99; BMI 22.1
[2024-05-30 09:25] LABS: Albumin Level 3.7 g/dl (3.5-5.0); Chloride 106 mmol/L (98-107); Hematocrit 21.5 % (37.0-47.0); Hemoglobin 7.4 g/dL (12.2-16.2); Lymphocytes % 91.1 % (10-50); Mean Corpuscular HGB Conc 34.4 g/dL (31.8-35.4); Mean Corpuscular Hemoglobin 30.8 pg (27.0-31.2); Mean Corpuscular Volume 89.6 fl (81-99); Mean Platelet Volume 9.7 fl (7.4-10.4); Monocytes % 2.7 % (1.7-9.3); Neutrophils # 0.1 K/mm3 (1.8-7.8); Red Cell Distribution Width 11.8 % (11.5-17.5); White Blood Count 1.1 K/mm3 (4.8-10.8)
[2024-05-30 09:26] LABS: Potassium 3.9 mmoL/L (3.5-5.1); Sodium 139 mmol/L (136-145)
[2024-05-30 09:28] LABS: Alanine Aminotransferase 19 U/L (12-78); Albumin/Globulin Ratio 1.4 (1.1-1.8); Alkaline Phosphatase 42 U/L (38-126); Anion Gap 11.9 mEq/L (5-15); Aspartate Amino Transferase 34 U/L (14-36); Bilirubin,Total 0.3 mg/dl (0.2-1.3); Blood Urea Nitrogen 26 mg/dl (7-17); Carbon Dioxide 25 mmol/L (22.0-30.0); Creatinine Clearance Estimated 46 mL/min (50-200); Estimated Glomerular Filt Rate 61 ml/min (>60); GFR (African American) 74 ML/MIN (>60); Globulin 2.7 g/dL (1.3-3.2); Total Protein,Serum 6.4 g/dl (6.3-8.2)
[2024-05-30 09:29] LABS: Calcium 9.6 mg/dl (8.4-10.2); Glucose 145 mg/dl (74-100)
[2024-05-30 09:33] LABS: Neutrophils % 6.2 % (37.0-80.0); Platelet Count 9 K/mm3 (142-424)
[2024-05-30 09:34] LABS: MANUAL DIFFERENTIAL MANUAL DIFFERENTIAL (MANUAL DIFF)
[2024-05-30 10:18] LABS: Lymphocytes % 88 % (10-50); Monocytes % 8 % (2-9); Neutrophils % 4 % (42-76); Total Cells Counted 25
[2024-05-30 10:19] LABS: Platelet Estimate Moderate Decrease; RBC Morphology Normal
== END 2024-05-30 14:07 | disposition home or self-care (01) ==
LOC: INF 09:05
PROVIDERS: PCP Family Medicine; Visit Provider Internal Medicine Medical Oncology
DX: C95.90 Leukemia, unspecified not having achieved remission (principal)
CPT/HCPCS: 36430; 80053; 85007; 85025; 86900; 86901; J1642; P9034

== ENCOUNTER 2024-06-02 08:56 | Outpatient (CLI) | payer MEDICARE, BC, SELFPAY ==
[2024-06-02] VITALS (11 sets, daily range): BP systolic 101–128; BP diastolic 46–58; PULSE 68–82; RESP 18; TEMP 35.9–36.3; O2SAT 100; BMI 21.9
[2024-06-02 09:19] LABS: Lymphocytes # 1.2 K/mm3 (0.7-4.5); Lymphocytes % 87.8 % (10-50); Mean Corpuscular HGB Conc 34.8 g/dL (31.8-35.4); Mean Corpuscular Hemoglobin 31.1 pg (27.0-31.2); Mean Corpuscular Volume 89.3 fl (81-99); Mean Platelet Volume 9.4 fl (7.4-10.4); Monocytes # 0.1 K/mm3 (0.1-1.0); Monocytes % 3.6 % (1.7-9.3); Neutrophils # 0.1 K/mm3 (1.8-7.8); Red Blood Count 2.25 M/mm3 (4.20-5.40); Red Cell Distribution Width 11.8 % (11.5-17.5); White Blood Count 1.4 K/mm3 (4.8-10.8)
[2024-06-02 09:20] LABS: Albumin Level 3.9 g/dl (3.5-5.0); Chloride 106 mmol/L (98-107); Sodium 140 mmol/L (136-145)
[2024-06-02 09:23] LABS: Alanine Aminotransferase 20 U/L (12-78); Aspartate Amino Transferase 33 U/L (14-36); Blood Urea Nitrogen 20 mg/dl (7-17); Carbon Dioxide 26 mmol/L (22.0-30.0); Creatinine Clearance Estimated 46 mL/min (50-200); Estimated Glomerular Filt Rate 54 ml/min (>60); GFR (African American) 66 ML/MIN (>60); Hematocrit 20.1 % (37.0-47.0); Neutrophils % 7.2 % (37.0-80.0); Platelet Count 30 K/mm3 (142-424)
[2024-06-02 09:24] LABS: Albumin/Globulin Ratio 1.4 (1.1-1.8); Alkaline Phosphatase 43 U/L (38-126); Bilirubin,Total 0.3 mg/dl (0.2-1.3); Calcium 9.7 mg/dl (8.4-10.2); Globulin 2.7 g/dL (1.3-3.2); Glucose 150 mg/dl (74-100); Total Protein,Serum 6.6 g/dl (6.3-8.2)
[2024-06-02 09:26] LABS: MANUAL DIFFERENTIAL MANUAL DIFFERENTIAL (MANUAL DIFF)
--- NOTE | 2024-06-02 09:30 | PC.NURSE ---
0930-collected blood for type and screen with jaylajewelsmith to witness blood draw; will wait on unit of prbcs to transfuse
[2024-06-02] MEDS: ACETAMINOPHEN 325MG TAB 650 MG PO (11:20)
[2024-06-02] MEDS: diphenhydrAMINE 25MG CAPSULE 25 MG PO (11:20)
[2024-06-02 11:55] LABS: Lymphocytes % 84 % (10-50); Monocytes % 6 % (2-9); Neutrophils % 7 % (42-76); Total Cells Counted 100
[2024-06-02 11:56] LABS: Platelet Estimate Moderate Decrease; RBC Morphology Normal
[2024-06-02] MEDS: 0.9 % SODIUM CHLORIDE 250 ML 25 ML IV (12:00)
[2024-06-02] MEDS: SODIUM CHLORIDE 0.9% 10ML FLUSH SYRINGE 10 ML IV (14:55)
== END 2024-06-02 15:05 | disposition home or self-care (01) ==
LOC: INF 08:58
PROVIDERS: PCP Family Medicine; Visit Provider Internal Medicine Medical Oncology
DX: C92.00 Acute myeloblastic leukemia, not having achieved remission (principal)
CPT/HCPCS: 36430; 80053; 85007; 85025; 86850; J1642; P9016

== ENCOUNTER 2024-06-06 08:52 | Outpatient (CLI) | payer MEDICARE, BC, SELFPAY ==
[2024-06-06] VITALS (8 sets, daily range): BP systolic 117–137; BP diastolic 45–54; PULSE 79–92; RESP 18; TEMP 35.9–36.6; O2SAT 100; BMI 21.4
[2024-06-06 09:10] LABS: Hematocrit 22.4 % (37.0-47.0); Hemoglobin 7.7 g/dL (12.2-16.2); Lymphocytes # 1.2 K/mm3 (0.7-4.5); Lymphocytes % 79.9 % (10-50); Mean Corpuscular HGB Conc 34.4 g/dL (31.8-35.4); Mean Corpuscular Hemoglobin 30.6 pg (27.0-31.2); Mean Corpuscular Volume 88.9 fl (81-99); Mean Platelet Volume 7.8 fl (7.4-10.4); Monocytes # 0.1 K/mm3 (0.1-1.0); Monocytes % 7.6 % (1.7-9.3); Neutrophils # 0.2 K/mm3 (1.8-7.8); Red Blood Count 2.52 M/mm3 (4.20-5.40); Red Cell Distribution Width 11.9 % (11.5-17.5); White Blood Count 1.4 K/mm3 (4.8-10.8)
[2024-06-06 09:13] LABS: Neutrophils % 11.8 % (37.0-80.0); Platelet Count 6 K/mm3 (142-424)
[2024-06-06 09:14] LABS: Albumin Level 3.8 g/dl (3.5-5.0); Chloride 107 mmol/L (98-107); MANUAL DIFFERENTIAL MANUAL DIFFERENTIAL (MANUAL DIFF); Sodium 139 mmol/L (136-145)
[2024-06-06 09:17] LABS: Alanine Aminotransferase 18 U/L (12-78); Albumin/Globulin Ratio 1.4 (1.1-1.8); Alkaline Phosphatase 42 U/L (38-126); Aspartate Amino Transferase 27 U/L (14-36); Bilirubin,Total 0.4 mg/dl (0.2-1.3); Blood Urea Nitrogen 19 mg/dl (7-17); Calcium 9.6 mg/dl (8.4-10.2); Carbon Dioxide 24 mmol/L (22.0-30.0); Creatinine Clearance Estimated 45 mL/min (50-200); Estimated Glomerular Filt Rate 54 ml/min (>60); GFR (African American) 66 ML/MIN (>60); Globulin 2.7 g/dL (1.3-3.2); Glucose 183 mg/dl (74-100); Total Protein,Serum 6.5 g/dl (6.3-8.2)
[2024-06-06 11:23] LABS: Lymphocytes % 88 % (10-50); Monocytes % 4 % (2-9); Neutrophils % 8 % (42-76); Total Cells Counted 25
[2024-06-06 11:24] LABS: Platelet Estimate Normal; RBC Morphology Normal
[2024-06-06] MEDS: 0.9 % SODIUM CHLORIDE 250 ML 25 ML IV (12:50)
[2024-06-06] MEDS: SODIUM CHLORIDE 0.9% 10ML FLUSH SYRINGE 10 ML IV (13:43)
== END 2024-06-06 13:45 | disposition home or self-care (01) ==
LOC: INF 08:52
PROVIDERS: PCP Family Medicine; Visit Provider Internal Medicine Medical Oncology
DX: C92.00 Acute myeloblastic leukemia, not having achieved remission (principal)
CPT/HCPCS: 36430; 80053; 85007; 85025; 86900; 86901; J1642; P9034

== ENCOUNTER 2024-06-09 08:48 | Outpatient (CLI) | payer MEDICARE, BC, SELFPAY ==
[2024-06-09] VITALS (11 sets, daily range): BP systolic 108–140; BP diastolic 41–55; PULSE 75–83; RESP 16–18; TEMP 36.6–36.8; O2SAT 98–100; BMI 21.4
[2024-06-09 09:09] LABS: Albumin Level 3.8 g/dl (3.5-5.0); Chloride 107 mmol/L (98-107); Potassium 3.9 mmoL/L (3.5-5.1); Sodium 139 mmol/L (136-145)
[2024-06-09 09:11] LABS: Lymphocytes # 1.2 K/mm3 (0.7-4.5); Lymphocytes % 78.6 % (10-50); Mean Corpuscular HGB Conc 34.1 g/dL (31.8-35.4); Mean Corpuscular Hemoglobin 30.6 pg (27.0-31.2); Mean Corpuscular Volume 89.5 fl (81-99); Mean Platelet Volume 9.4 fl (7.4-10.4); Monocytes # 0.1 K/mm3 (0.1-1.0); Monocytes % 7.1 % (1.7-9.3); Neutrophils # 0.2 K/mm3 (1.8-7.8); Red Blood Count 2.29 M/mm3 (4.20-5.40); White Blood Count 1.5 K/mm3 (4.8-10.8)
[2024-06-09 09:12] LABS: Alanine Aminotransferase 16 U/L (12-78); Albumin/Globulin Ratio 1.5 (1.1-1.8); Alkaline Phosphatase 41 U/L (38-126); Anion Gap 9.9 mEq/L (5-15); Aspartate Amino Transferase 27 U/L (14-36); Bilirubin,Total 0.3 mg/dl (0.2-1.3); Blood Urea Nitrogen 20 mg/dl (7-17); Calcium 9.8 mg/dl (8.4-10.2); Carbon Dioxide 26 mmol/L (22.0-30.0); Creatinine Clearance Estimated 45 mL/min (50-200); Estimated Glomerular Filt Rate 54 ml/min (>60); GFR (African American) 66 ML/MIN (>60); Globulin 2.6 g/dL (1.3-3.2); Glucose 157 mg/dl (74-100); Total Protein,Serum 6.4 g/dl (6.3-8.2)
[2024-06-09 09:15] LABS: Neutrophils % 14.3 % (37.0-80.0)
[2024-06-09 09:17] LABS: Hematocrit 20.5 % (37.0-47.0); Platelet Count 22 K/mm3 (142-424)
[2024-06-09 09:18] LABS: MANUAL DIFFERENTIAL MANUAL DIFFERENTIAL (MANUAL DIFF)
[2024-06-09 10:26] LABS: Lymphocytes % 72 % (10-50); Neutrophils % 28 % (42-76); Platelet Estimate Marked Decrease; RBC Morphology Normal; Total Cells Counted 25
[2024-06-09] MEDS: ACETAMINOPHEN 325MG TAB 650 MG (12:00)
[2024-06-09] MEDS: diphenhydrAMINE 25MG CAPSULE 25 MG PO (12:00)
[2024-06-09] MEDS: 0.9 % SODIUM CHLORIDE 250 ML 25 ML IV (14:45)
[2024-06-09] MEDS: SODIUM CHLORIDE 0.9% 10ML FLUSH SYRINGE 10 ML IV (14:45)
== END 2024-06-09 15:49 | disposition home or self-care (01) ==
LOC: INF 08:49
PROVIDERS: PCP Family Medicine; Visit Provider Internal Medicine Medical Oncology
DX: C92.00 Acute myeloblastic leukemia, not having achieved remission (principal)
CPT/HCPCS: 36430; 80053; 85007; 85025; 86850; J1642; P9016

== ENCOUNTER 2024-06-11 08:53 | Outpatient (CLI) | payer MEDICARE, BC, SELFPAY ==
[2024-06-11 08:57] VITALS: BMI 22.1
[2024-06-11] MEDS: SODIUM CHLORIDE 0.9% 10ML FLUSH SYRINGE 10 ML IV (09:05)
[2024-06-11 09:13] LABS: Hematocrit 24.1 % (37.0-47.0); Hemoglobin 8.2 g/dL (12.2-16.2); Lymphocytes # 1.1 K/mm3 (0.7-4.5); Lymphocytes % 70.4 % (10-50); Mean Corpuscular Hemoglobin 29.7 pg (27.0-31.2); Mean Corpuscular Volume 87.3 fl (81-99); Mean Platelet Volume 10.4 fl (7.4-10.4); Monocytes # 0.2 K/mm3 (0.1-1.0); Monocytes % 10.5 % (1.7-9.3); Neutrophils # 0.3 K/mm3 (1.8-7.8); Neutrophils % 19.1 % (37.0-80.0); Red Blood Count 2.76 M/mm3 (4.20-5.40); Red Cell Distribution Width 13.2 % (11.5-17.5); White Blood Count 1.5 K/mm3 (4.8-10.8)
[2024-06-11 09:21] LABS: MANUAL DIFFERENTIAL MANUAL DIFFERENTIAL (MANUAL DIFF); Platelet Count 11 K/mm3 (142-424)
[2024-06-11 09:23] LABS: Albumin Level 3.7 g/dl (3.5-5.0); Chloride 105 mmol/L (98-107); Potassium 4.1 mmoL/L (3.5-5.1); Sodium 138 mmol/L (136-145)
[2024-06-11 09:25] LABS: Blood Urea Nitrogen 25 mg/dl (7-17)
[2024-06-11 09:26] LABS: Alanine Aminotransferase 16 U/L (12-78); Albumin/Globulin Ratio 1.4 (1.1-1.8); Alkaline Phosphatase 44 U/L (38-126); Anion Gap 13.1 mEq/L (5-15); Aspartate Amino Transferase 29 U/L (14-36); Bilirubin,Total 0.2 mg/dl (0.2-1.3); Calcium 9.5 mg/dl (8.4-10.2); Carbon Dioxide 24 mmol/L (22.0-30.0); Creatinine Clearance Estimated 46 mL/min (50-200); Estimated Glomerular Filt Rate 54 ml/min (>60); GFR (African American) 66 ML/MIN (>60); Globulin 2.6 g/dL (1.3-3.2); Glucose 139 mg/dl (74-100); Total Protein,Serum 6.3 g/dl (6.3-8.2)
[2024-06-11 09:39] LABS: Lymphocytes % 84 % (10-50); Neutrophils % 16 % (42-76); Platelet Estimate Marked Decrease; RBC Morphology Normal; Total Cells Counted 50
== END 2024-06-11 09:30 | disposition home or self-care (01) ==
LOC: INF 08:54
PROVIDERS: PCP Family Medicine; Visit Provider Internal Medicine Medical Oncology
DX: C92.00 Acute myeloblastic leukemia, not having achieved remission (principal)
CPT/HCPCS: 36591; 80053; 85007; 85025; J1642

== ENCOUNTER 2024-06-13 08:52 | Outpatient (CLI) | payer MEDICARE, BC, SELFPAY ==
[2024-06-13] VITALS (7 sets, daily range): BP systolic 110–139; BP diastolic 42–56; PULSE 78–92; RESP 18; TEMP 36.6–36.8; O2SAT 98–99; BMI 21.4
[2024-06-13 09:11] LABS: Eosinophils % 0.6 % (0.1-12.0); Hematocrit 22.7 % (37.0-47.0); Hemoglobin 7.8 g/dL (12.2-16.2); Lymphocytes # 1.1 K/mm3 (0.7-4.5); Lymphocytes % 66.9 % (10-50); Mean Corpuscular HGB Conc 34.4 g/dL (31.8-35.4); Mean Corpuscular Volume 87.3 fl (81-99); Monocytes # 0.2 K/mm3 (0.1-1.0); Monocytes % 10.8 % (1.7-9.3); Neutrophils # 0.3 K/mm3 (1.8-7.8); Neutrophils % 21.7 % (37.0-80.0); White Blood Count 1.6 K/mm3 (4.8-10.8)
[2024-06-13 09:14] LABS: Platelet Count 5 K/mm3 (142-424)
[2024-06-13 09:15] LABS: MANUAL DIFFERENTIAL MANUAL DIFFERENTIAL (MANUAL DIFF)
[2024-06-13 09:21] LABS: Alanine Aminotransferase 16 U/L (12-78); Albumin Level 3.8 g/dl (3.5-5.0); Albumin/Globulin Ratio 1.7 (1.1-1.8); Alkaline Phosphatase 46 U/L (38-126); Aspartate Amino Transferase 30 U/L (14-36); Bilirubin,Total 0.4 mg/dl (0.2-1.3); Blood Urea Nitrogen 28 mg/dl (7-17); Calcium 9.7 mg/dl (8.4-10.2); Carbon Dioxide 24 mmol/L (22.0-30.0); Chloride 109 mmol/L (98-107); Creatinine Clearance Estimated 45 mL/min (50-200); Estimated Glomerular Filt Rate 54 ml/min (>60); GFR (African American) 66 ML/MIN (>60); Globulin 2.3 g/dL (1.3-3.2); Glucose 147 mg/dl (74-100); Sodium 137 mmol/L (136-145); Total Protein,Serum 6.1 g/dl (6.3-8.2)
[2024-06-13 09:32] LABS: Lymphocytes % 64 % (10-50); Monocytes % 8 % (2-9); Neutrophils % 28 % (42-76); Total Cells Counted 25
[2024-06-13 09:33] LABS: Hypochromasia 1+; Ovalocytes 1+
[2024-06-13 09:34] LABS: Platelet Estimate Marked Decrease
[2024-06-13] MEDS: 0.9 % SODIUM CHLORIDE 250 ML 25 ML IV (12:45)
== END 2024-06-13 14:20 | disposition home or self-care (01) ==
LOC: INF 08:52
PROVIDERS: PCP Family Medicine; Visit Provider Internal Medicine Medical Oncology
DX: C92.00 Acute myeloblastic leukemia, not having achieved remission (principal)
CPT/HCPCS: 36430; 80053; 85007; 85025; 86900; 86901; J1642; P9034

== ENCOUNTER 2024-06-16 08:54 | Outpatient (CLI) | payer MEDICARE, BC, SELFPAY ==
[2024-06-16 09:00] VITALS: BMI 21.4
[2024-06-16 09:17] LABS: Hemoglobin 7.2 g/dL (12.2-16.2); Lymphocytes # 1.2 K/mm3 (0.7-4.5); Mean Corpuscular HGB Conc 34.3 g/dL (31.8-35.4); Mean Corpuscular Hemoglobin 30.1 pg (27.0-31.2); Mean Corpuscular Volume 87.9 fl (81-99); Mean Platelet Volume 10.2 fl (7.4-10.4); Monocytes # 0.2 K/mm3 (0.1-1.0); Monocytes % 11.5 % (1.7-9.3); Neutrophils # 0.5 K/mm3 (1.8-7.8); Red Blood Count 2.39 M/mm3 (4.20-5.40); Red Cell Distribution Width 12.9 % (11.5-17.5)
[2024-06-16 09:20] LABS: Platelet Count 25 K/mm3 (142-424)
[2024-06-16 09:22] LABS: MANUAL DIFFERENTIAL MANUAL DIFFERENTIAL (MANUAL DIFF)
[2024-06-16] MEDS: SODIUM CHLORIDE 0.9% 10ML FLUSH SYRINGE 10 ML IV (09:25)
[2024-06-16 09:35] LABS: Alanine Aminotransferase 18 U/L (12-78); Albumin Level 3.8 g/dl (3.5-5.0); Albumin/Globulin Ratio 1.6 (1.1-1.8); Alkaline Phosphatase 41 U/L (38-126); Anion Gap 7.8 mEq/L (5-15); Aspartate Amino Transferase 35 U/L (14-36); Bilirubin,Total 0.3 mg/dl (0.2-1.3); Blood Urea Nitrogen 26 mg/dl (7-17); Calcium 9.6 mg/dl (8.4-10.2); Carbon Dioxide 25 mmol/L (22.0-30.0); Chloride 109 mmol/L (98-107); Creatinine Clearance Estimated 45 mL/min (50-200); Estimated Glomerular Filt Rate 61 ml/min (>60); GFR (African American) 74 ML/MIN (>60); Globulin 2.4 g/dL (1.3-3.2); Glucose 156 mg/dl (74-100); Potassium 3.8 mmoL/L (3.5-5.1); Sodium 138 mmol/L (136-145); Total Protein,Serum 6.2 g/dl (6.3-8.2)
[2024-06-16 10:31] LABS: Eosinophils % 1 % (0-3); Lymphocytes % 67 % (10-50); Monocytes % 12 % (2-9); Neutrophils % 20 % (42-76); Platelet Estimate Moderate Decrease; RBC Morphology Normal; Total Cells Counted 100
== END 2024-06-16 09:30 | disposition home or self-care (01) ==
LOC: INF 08:54
PROVIDERS: PCP Family Medicine; Visit Provider Internal Medicine Medical Oncology
DX: C92.00 Acute myeloblastic leukemia, not having achieved remission (principal)
CPT/HCPCS: 36591; 80053; 85007; 85025; J1642

== ENCOUNTER 2024-06-20 08:54 | Outpatient (CLI) | payer MEDICARE, BC, SELFPAY ==
[2024-06-20] VITALS (7 sets, daily range): BP systolic 112–143; BP diastolic 40–67; PULSE 76–83; RESP 16–17; TEMP 36.1–36.5; O2SAT 100; BMI 21.4
[2024-06-20 09:24] LABS: Eosinophils % 0.5 % (0.1-12.0); Hematocrit 23.6 % (37.0-47.0); Hemoglobin 8.1 g/dL (12.2-16.2); Lymphocytes # 1.1 K/mm3 (0.7-4.5); Lymphocytes % 61.7 % (10-50); Mean Corpuscular HGB Conc 34.3 g/dL (31.8-35.4); Mean Corpuscular Hemoglobin 29.8 pg (27.0-31.2); Mean Corpuscular Volume 86.8 fl (81-99); Mean Platelet Volume 9.1 fl (7.4-10.4); Monocytes # 0.2 K/mm3 (0.1-1.0); Monocytes % 12.6 % (1.7-9.3); Neutrophils # 0.5 K/mm3 (1.8-7.8); Neutrophils % 25.2 % (37.0-80.0); Red Blood Count 2.72 M/mm3 (4.20-5.40); Red Cell Distribution Width 13.1 % (11.5-17.5); White Blood Count 1.8 K/mm3 (4.8-10.8)
[2024-06-20 09:25] LABS: Platelet Count 7 K/mm3 (142-424)
[2024-06-20 09:27] LABS: MANUAL DIFFERENTIAL MANUAL DIFFERENTIAL (MANUAL DIFF)
[2024-06-20 09:51] LABS: Hypochromasia 1+; Lymphocytes % 63 % (10-50); Monocytes % 9 % (2-9); Neutrophils % 28 % (42-76); Ovalocytes 1+; Platelet Estimate Marked Decrease; Total Cells Counted 100
[2024-06-20 09:54] LABS: Albumin Level 3.8 g/dl (3.5-5.0); Chloride 108 mmol/L (98-107); Potassium 3.5 mmoL/L (3.5-5.1); Sodium 139 mmol/L (136-145)
[2024-06-20 09:57] LABS: Alanine Aminotransferase 20 U/L (12-78); Albumin/Globulin Ratio 1.6 (1.1-1.8); Alkaline Phosphatase 43 U/L (38-126); Anion Gap 8.5 mEq/L (5-15); Aspartate Amino Transferase 37 U/L (14-36); Bilirubin,Total 0.5 mg/dl (0.2-1.3); Blood Urea Nitrogen 23 mg/dl (7-17); Calcium 9.8 mg/dl (8.4-10.2); Carbon Dioxide 26 mmol/L (22.0-30.0); Creatinine Clearance Estimated 45 mL/min (50-200); Estimated Glomerular Filt Rate 54 ml/min (>60); GFR (African American) 66 ML/MIN (>60); Globulin 2.4 g/dL (1.3-3.2); Glucose 160 mg/dl (74-100); Total Protein,Serum 6.2 g/dl (6.3-8.2)
[2024-06-20] MEDS: 0.9 % SODIUM CHLORIDE 250 ML 25 ML IV (13:50)
--- NOTE | 2024-06-20 14:04 | PC.NURSE ---
1357 - Platelet transfusion started infusing by gravity at this time.
== END 2024-06-20 14:59 | disposition home or self-care (01) ==
LOC: INF 08:55
PROVIDERS: PCP Family Medicine; Visit Provider Internal Medicine Medical Oncology
DX: C92.00 Acute myeloblastic leukemia, not having achieved remission (principal)
CPT/HCPCS: 36430; 80053; 85007; 85025; 86900; 86901; J1642; P9034

== ENCOUNTER 2024-06-23 08:54 | Outpatient (CLI) | payer MEDICARE, BC, SELFPAY ==
[2024-06-23] VITALS (10 sets, daily range): BP systolic 118–149; BP diastolic 50–80; PULSE 70–99; RESP 18; TEMP 36.5–36.7; O2SAT 99–100; BMI 22.1
[2024-06-23 09:14] LABS: Eosinophils % 0.5 % (0.1-12.0); Lymphocytes # 1.2 K/mm3 (0.7-4.5); Lymphocytes % 64.4 % (10-50); Mean Corpuscular HGB Conc 34.5 g/dL (31.8-35.4); Mean Corpuscular Hemoglobin 30.4 pg (27.0-31.2); Mean Corpuscular Volume 88.3 fl (81-99); Mean Platelet Volume 9.9 fl (7.4-10.4); Monocytes # 0.3 K/mm3 (0.1-1.0); Monocytes % 14.4 % (1.7-9.3); Neutrophils # 0.4 K/mm3 (1.8-7.8); Neutrophils % 20.7 % (37.0-80.0); Red Cell Distribution Width 13.2 % (11.5-17.5); White Blood Count 1.9 K/mm3 (4.8-10.8)
[2024-06-23 09:19] LABS: Hematocrit 20.3 % (37.0-47.0); Platelet Count 29 K/mm3 (142-424)
[2024-06-23 09:21] LABS: Albumin Level 3.9 g/dl (3.5-5.0); Chloride 107 mmol/L (98-107); MANUAL DIFFERENTIAL MANUAL DIFFERENTIAL (MANUAL DIFF); Potassium 3.5 mmoL/L (3.5-5.1); Sodium 137 mmol/L (136-145)
[2024-06-23 09:24] LABS: Alanine Aminotransferase 18 U/L (12-78); Albumin/Globulin Ratio 1.9 (1.1-1.8); Alkaline Phosphatase 42 U/L (38-126); Anion Gap 8.5 mEq/L (5-15); Aspartate Amino Transferase 34 U/L (14-36); Bilirubin,Total 0.3 mg/dl (0.2-1.3); Blood Urea Nitrogen 25 mg/dl (7-17); Carbon Dioxide 25 mmol/L (22.0-30.0); Creatinine Clearance Estimated 46 mL/min (50-200); Estimated Glomerular Filt Rate 54 ml/min (>60); GFR (African American) 66 ML/MIN (>60); Globulin 2.1 g/dL (1.3-3.2)
[2024-06-23 09:25] LABS: Calcium 9.5 mg/dl (8.4-10.2); Glucose 135 mg/dl (74-100)
[2024-06-23 09:49] LABS: Lymphocytes % 64 % (10-50); Monocytes % 12 % (2-9); Neutrophils % 24 % (42-76); RBC Morphology Normal; Total Cells Counted 25
[2024-06-23 09:50] LABS: Platelet Estimate Marked Decrease
[2024-06-23] MEDS: ACETAMINOPHEN 325MG TAB 650 MG PO (12:00)
[2024-06-23] MEDS: 0.9 % SODIUM CHLORIDE 250 ML 25 ML IV (12:00)
[2024-06-23] MEDS: diphenhydrAMINE 25MG CAPSULE 25 MG PO (12:00)
== END 2024-06-23 15:25 | disposition home or self-care (01) ==
LOC: INF 08:54
PROVIDERS: PCP Family Medicine; Visit Provider Internal Medicine Medical Oncology
DX: C92.00 Acute myeloblastic leukemia, not having achieved remission (principal)
CPT/HCPCS: 36430; 80053; 85007; 85025; 86850; J1642; P9016

== ENCOUNTER 2024-06-25 08:58 | Outpatient (CLI) | payer MEDICARE, BC, SELFPAY ==
[2024-06-25 09:00] VITALS: BMI 21.4
[2024-06-25 09:16] LABS: Eosinophils % 0.5 % (0.1-12.0); Hematocrit 26.1 % (37.0-47.0); Hemoglobin 8.9 g/dL (12.2-16.2); Lymphocytes # 1.4 K/mm3 (0.7-4.5); Lymphocytes % 60.8 % (10-50); Mean Corpuscular HGB Conc 34.1 g/dL (31.8-35.4); Mean Corpuscular Volume 87.9 fl (81-99); Mean Platelet Volume 9.3 fl (7.4-10.4); Monocytes # 0.3 K/mm3 (0.1-1.0); Neutrophils # 0.6 K/mm3 (1.8-7.8); Neutrophils % 24.7 % (37.0-80.0); Red Blood Count 2.97 M/mm3 (4.20-5.40); Red Cell Distribution Width 14.1 % (11.5-17.5); White Blood Count 2.2 K/mm3 (4.8-10.8)
[2024-06-25 09:19] LABS: Platelet Count 17 K/mm3 (142-424)
[2024-06-25 09:21] LABS: MANUAL DIFFERENTIAL MANUAL DIFFERENTIAL (MANUAL DIFF)
[2024-06-25 09:39] LABS: Alanine Aminotransferase 19 U/L (12-78); Albumin Level 3.8 g/dl (3.5-5.0); Alkaline Phosphatase 41 U/L (38-126); Anion Gap 10.8 mEq/L (5-15); Aspartate Amino Transferase 33 U/L (14-36); Bilirubin,Total 0.3 mg/dl (0.2-1.3); Blood Urea Nitrogen 31 mg/dl (7-17); Calcium 9.6 mg/dl (8.4-10.2); Carbon Dioxide 24 mmol/L (22.0-30.0); Chloride 108 mmol/L (98-107); Creatinine Clearance Estimated 41 mL/min (50-200); Estimated Glomerular Filt Rate 49 ml/min (>60); GFR (African American) 59 ML/MIN (>60); Glucose 151 mg/dl (74-100); Potassium 3.8 mmoL/L (3.5-5.1); Sodium 139 mmol/L (136-145)
[2024-06-25 09:42] LABS: Lymphocytes % 62 % (10-50); Monocytes % 9 % (2-9); Neutrophils % 29 % (42-76); Platelet Estimate Marked Decrease; RBC Morphology Normal; Total Cells Counted 100
[2024-06-25 13:41] LABS: Albumin/Globulin Ratio 1.7 (1.1-1.8); Globulin 2.3 g/dL (1.3-3.2); Total Protein,Serum 6.1 g/dl (6.3-8.2)
== END 2024-06-25 23:59 | disposition home or self-care (01) ==
LOC: INF 08:59
PROVIDERS: PCP Family Medicine; Visit Provider Internal Medicine Medical Oncology
DX: C92.00 Acute myeloblastic leukemia, not having achieved remission (principal)
CPT/HCPCS: 36591; 80053; 85007; 85025; J1642

== ENCOUNTER 2024-06-27 08:51 | Outpatient (CLI) | payer MEDICARE, BC, SELFPAY ==
[2024-06-27 08:54] VITALS: BMI 21.9
[2024-06-27] MEDS: SODIUM CHLORIDE 0.9% 10ML FLUSH SYRINGE 10 ML IV (09:00)
[2024-06-27 09:11] LABS: Hematocrit 24.8 % (37.0-47.0); Hemoglobin 8.4 g/dL (12.2-16.2); Lymphocytes # 1.3 K/mm3 (0.7-4.5); Lymphocytes % 60.4 % (10-50); Mean Corpuscular HGB Conc 33.9 g/dL (31.8-35.4); Mean Corpuscular Volume 88.6 fl (81-99); Mean Platelet Volume 11.9 fl (7.4-10.4); Monocytes # 0.3 K/mm3 (0.1-1.0); Monocytes % 12.1 % (1.7-9.3); Neutrophils # 0.5 K/mm3 (1.8-7.8); Red Cell Distribution Width 13.8 % (11.5-17.5); White Blood Count 2.1 K/mm3 (4.8-10.8)
[2024-06-27 09:18] LABS: MANUAL DIFFERENTIAL MANUAL DIFFERENTIAL (MANUAL DIFF); Platelet Count 11 K/mm3 (142-424)
[2024-06-27 09:21] LABS: Alanine Aminotransferase 17 U/L (12-78); Albumin Level 3.7 g/dl (3.5-5.0); Albumin/Globulin Ratio 1.6 (1.1-1.8); Alkaline Phosphatase 42 U/L (38-126); Anion Gap 9.8 mEq/L (5-15); Aspartate Amino Transferase 33 U/L (14-36); Bilirubin,Total 0.4 mg/dl (0.2-1.3); Blood Urea Nitrogen 26 mg/dl (7-17); Calcium 9.9 mg/dl (8.4-10.2); Carbon Dioxide 25 mmol/L (22.0-30.0); Chloride 108 mmol/L (98-107); Creatinine Clearance Estimated 42 mL/min (50-200); Estimated Glomerular Filt Rate 49 ml/min (>60); GFR (African American) 59 ML/MIN (>60); Globulin 2.3 g/dL (1.3-3.2); Glucose 151 mg/dl (74-100); Potassium 3.8 mmoL/L (3.5-5.1); Sodium 139 mmol/L (136-145)
[2024-06-27 10:10] LABS: Lymphocytes % 65 % (10-50); Monocytes % 7 % (2-9); Neutrophils % 28 % (42-76); Platelet Estimate Marked Decrease; RBC Morphology Normal; Total Cells Counted 100
== END 2024-06-27 09:30 | disposition home or self-care (01) ==
LOC: INF 08:51
PROVIDERS: PCP Family Medicine; Visit Provider Internal Medicine Medical Oncology
DX: C92.00 Acute myeloblastic leukemia, not having achieved remission (principal)
CPT/HCPCS: 36591; 80053; 85007; 85025; J1642

== ENCOUNTER 2024-06-30 08:59 | Outpatient (CLI) | payer MEDICARE, BC, SELFPAY ==
[2024-06-30] VITALS (7 sets, daily range): BP systolic 117–138; BP diastolic 59–71; PULSE 81–85; RESP 18; TEMP 36.6–36.8; O2SAT 98–99; BMI 47.2
[2024-06-30 09:28] LABS: Eosinophils % 0.4 % (0.1-12.0); Hematocrit 23.6 % (37.0-47.0); Lymphocytes # 1.3 K/mm3 (0.7-4.5); Lymphocytes % 55.1 % (10-50); Mean Corpuscular HGB Conc 33.9 g/dL (31.8-35.4); Mean Corpuscular Hemoglobin 30.3 pg (27.0-31.2); Mean Corpuscular Volume 89.4 fl (81-99); Monocytes # 0.3 K/mm3 (0.1-1.0); Monocytes % 11.9 % (1.7-9.3); Neutrophils # 0.7 K/mm3 (1.8-7.8); Neutrophils % 32.6 % (37.0-80.0); Red Blood Count 2.64 M/mm3 (4.20-5.40); Red Cell Distribution Width 13.9 % (11.5-17.5); White Blood Count 2.3 K/mm3 (4.8-10.8)
[2024-06-30 09:34] LABS: Platelet Count 8 K/mm3 (142-424)
[2024-06-30 09:35] LABS: MANUAL DIFFERENTIAL MANUAL DIFFERENTIAL (MANUAL DIFF)
[2024-06-30 09:46] LABS: Alanine Aminotransferase 18 U/L (12-78); Albumin Level 3.8 g/dl (3.5-5.0); Albumin/Globulin Ratio 1.7 (1.1-1.8); Alkaline Phosphatase 39 U/L (38-126); Anion Gap 9.7 mEq/L (5-15); Aspartate Amino Transferase 35 U/L (14-36); Bilirubin,Total 0.4 mg/dl (0.2-1.3); Blood Urea Nitrogen 22 mg/dl (7-17); Calcium 9.7 mg/dl (8.4-10.2); Carbon Dioxide 24 mmol/L (22.0-30.0); Chloride 109 mmol/L (98-107); Creatinine Clearance Estimated 43 mL/min (50-200); Estimated Glomerular Filt Rate 54 ml/min (>60); GFR (African American) 66 ML/MIN (>60); Globulin 2.2 g/dL (1.3-3.2); Glucose 155 mg/dl (74-100); Potassium 3.7 mmoL/L (3.5-5.1); Sodium 139 mmol/L (136-145)
[2024-06-30 10:26] LABS: Lymphocytes % 63 % (10-50); Monocytes % 4 % (2-9); Neutrophils % 33 % (42-76); Platelet Estimate Marked Decrease; RBC Morphology Normal; Total Cells Counted 100
[2024-06-30] MEDS: 0.9 % SODIUM CHLORIDE 250 ML 25 ML IV (13:00)
== END 2024-06-30 14:00 | disposition home or self-care (01) ==
LOC: INF 09:00
PROVIDERS: PCP Family Medicine; Visit Provider Internal Medicine Medical Oncology
DX: C92.00 Acute myeloblastic leukemia, not having achieved remission (principal)
CPT/HCPCS: 36430; 80053; 85007; 85025; 86900; 86901; J1642; P9034

== ENCOUNTER 2024-07-02 08:54 | Outpatient (CLI) | payer MEDICARE, BC, SELFPAY ==
[2024-07-02 08:57] VITALS: BMI 22.1
[2024-07-02] MEDS: SODIUM CHLORIDE 0.9% 10ML FLUSH SYRINGE 10 ML IV (09:05)
[2024-07-02 09:16] LABS: Eosinophils % 0.5 % (0.1-12.0); Hematocrit 21.5 % (37.0-47.0); Hemoglobin 7.3 g/dL (12.2-16.2); Lymphocytes # 1.2 K/mm3 (0.7-4.5); Lymphocytes % 54.8 % (10-50); Mean Corpuscular Hemoglobin 30.5 pg (27.0-31.2); Mean Platelet Volume 11.2 fl (7.4-10.4); Monocytes # 0.2 K/mm3 (0.1-1.0); Monocytes % 8.7 % (1.7-9.3); Neutrophils # 0.8 K/mm3 (1.8-7.8); Red Blood Count 2.39 M/mm3 (4.20-5.40); Red Cell Distribution Width 14.4 % (11.5-17.5); White Blood Count 2.2 K/mm3 (4.8-10.8)
[2024-07-02 09:18] LABS: Platelet Count 32 K/mm3 (142-424)
[2024-07-02 09:19] LABS: MANUAL DIFFERENTIAL MANUAL DIFFERENTIAL (MANUAL DIFF)
[2024-07-02 09:23] LABS: Albumin Level 3.8 g/dl (3.5-5.0); Chloride 108 mmol/L (98-107); Potassium 3.9 mmoL/L (3.5-5.1); Sodium 138 mmol/L (136-145)
[2024-07-02 09:26] LABS: Alanine Aminotransferase 19 U/L (12-78); Albumin/Globulin Ratio 1.8 (1.1-1.8); Alkaline Phosphatase 40 U/L (38-126); Anion Gap 8.9 mEq/L (5-15); Aspartate Amino Transferase 36 U/L (14-36); Bilirubin,Total 0.4 mg/dl (0.2-1.3); Blood Urea Nitrogen 20 mg/dl (7-17); Calcium 9.7 mg/dl (8.4-10.2); Carbon Dioxide 25 mmol/L (22.0-30.0); Creatinine Clearance Estimated 46 mL/min (50-200); Estimated Glomerular Filt Rate 61 ml/min (>60); GFR (African American) 74 ML/MIN (>60); Globulin 2.1 g/dL (1.3-3.2); Glucose 152 mg/dl (74-100); Total Protein,Serum 5.9 g/dl (6.3-8.2)
[2024-07-02 11:42] LABS: Lymphocytes % 56 % (10-50); Monocytes % 4 % (2-9); Neutrophils % 40 % (42-76); Platelet Estimate Marked Decrease; RBC Morphology Normal; Total Cells Counted 50
== END 2024-07-02 09:25 | disposition home or self-care (01) ==
LOC: INF 08:55
PROVIDERS: PCP Family Medicine; Visit Provider Internal Medicine Medical Oncology
DX: C92.00 Acute myeloblastic leukemia, not having achieved remission (principal)
CPT/HCPCS: 36591; 80053; 85007; 85025; J1642

== ENCOUNTER 2024-07-04 08:54 | Outpatient (CLI) | payer MEDICARE, BC, SELFPAY ==
[2024-07-04] VITALS (10 sets, daily range): BP systolic 100–113; BP diastolic 44–75; PULSE 70–77; RESP 18; TEMP 36.6–36.7; O2SAT 98–100; BMI 20.7
[2024-07-04 09:11] LABS: Eosinophils % 0.9 % (0.1-12.0); Lymphocytes # 1.2 K/mm3 (0.7-4.5); Lymphocytes % 54.6 % (10-50); Mean Corpuscular HGB Conc 34.5 g/dL (31.8-35.4); Mean Corpuscular Volume 89.8 fl (81-99); Mean Platelet Volume 10.2 fl (7.4-10.4); Monocytes # 0.2 K/mm3 (0.1-1.0); Monocytes % 7.8 % (1.7-9.3); Neutrophils # 0.8 K/mm3 (1.8-7.8); Neutrophils % 36.7 % (37.0-80.0); Red Blood Count 2.26 M/mm3 (4.20-5.40); Red Cell Distribution Width 14.5 % (11.5-17.5); White Blood Count 2.2 K/mm3 (4.8-10.8)
[2024-07-04 09:18] LABS: Alanine Aminotransferase 21 U/L (12-78); Albumin Level 3.9 g/dl (3.5-5.0); Albumin/Globulin Ratio 1.9 (1.1-1.8); Alkaline Phosphatase 32 U/L (38-126); Anion Gap 9.8 mEq/L (5-15); Aspartate Amino Transferase 37 U/L (14-36); Bilirubin,Total 0.5 mg/dl (0.2-1.3); Blood Urea Nitrogen 20 mg/dl (7-17); Calcium 9.6 mg/dl (8.4-10.2); Carbon Dioxide 23 mmol/L (22.0-30.0); Chloride 109 mmol/L (98-107); Creatinine Clearance Estimated 43 mL/min (50-200); Estimated Glomerular Filt Rate 61 ml/min (>60); GFR (African American) 74 ML/MIN (>60); Globulin 2.1 g/dL (1.3-3.2); Glucose 147 mg/dl (74-100); Hematocrit 20.3 % (37.0-47.0); Platelet Count 19 K/mm3 (142-424); Potassium 3.8 mmoL/L (3.5-5.1); Sodium 138 mmol/L (136-145)
[2024-07-04 09:19] LABS: MANUAL DIFFERENTIAL MANUAL DIFFERENTIAL (MANUAL DIFF)
[2024-07-04 11:44] LABS: Eosinophils % 1 % (0-3); Lymphocytes % 55 % (10-50); Monocytes % 8 % (2-9); Neutrophils % 34 % (42-76); Total Cells Counted 100
[2024-07-04 11:45] LABS: Platelet Estimate Moderate Decrease; RBC Morphology Normal
[2024-07-04] MEDS: diphenhydrAMINE 25MG CAPSULE 25 MG PO (12:00)
[2024-07-04] MEDS: 0.9 % SODIUM CHLORIDE 250 ML 25 ML IV (12:00)
[2024-07-04] MEDS: ACETAMINOPHEN 325MG TAB 650 MG PO (12:00)
[2024-07-04] MEDS: SODIUM CHLORIDE 0.9% 10ML FLUSH SYRINGE 10 ML IV (14:41)
== END 2024-07-04 15:15 | disposition home or self-care (01) ==
LOC: INF 08:56
PROVIDERS: PCP Family Medicine; Visit Provider Internal Medicine Medical Oncology
DX: C92.00 Acute myeloblastic leukemia, not having achieved remission (principal)
CPT/HCPCS: 36430; 80053; 85007; 85025; 86850; J1642; P9016

== ENCOUNTER 2024-07-07 08:59 | Outpatient (CLI) | payer MEDICARE, BC, SELFPAY ==
[2024-07-07] VITALS (8 sets, daily range): BP systolic 112–137; BP diastolic 42–89; PULSE 70–78; RESP 18; TEMP 36.5–36.6; O2SAT 100; BMI 21.2
[2024-07-07 09:21] LABS: Basophils % 0.5 % (0.1-2.0); Hematocrit 24.9 % (37.0-47.0); Hemoglobin 8.4 g/dL (12.2-16.2); Lymphocytes # 1.1 K/mm3 (0.7-4.5); Lymphocytes % 54.4 % (10-50); Mean Corpuscular HGB Conc 33.7 g/dL (31.8-35.4); Mean Corpuscular Volume 88.9 fl (81-99); Mean Platelet Volume 12.4 fl (7.4-10.4); Monocytes # 0.2 K/mm3 (0.1-1.0); Monocytes % 10.8 % (1.7-9.3); Neutrophils # 0.7 K/mm3 (1.8-7.8); Neutrophils % 32.8 % (37.0-80.0)
[2024-07-07 09:24] LABS: Albumin Level 3.8 g/dl (3.5-5.0); Chloride 108 mmol/L (98-107); Sodium 137 mmol/L (136-145)
[2024-07-07 09:25] LABS: Platelet Count 9 K/mm3 (142-424); Potassium 3.7 mmoL/L (3.5-5.1)
[2024-07-07 09:26] LABS: MANUAL DIFFERENTIAL MANUAL DIFFERENTIAL (MANUAL DIFF)
[2024-07-07 09:27] LABS: Alanine Aminotransferase 19 U/L (12-78); Albumin/Globulin Ratio 1.7 (1.1-1.8); Alkaline Phosphatase 40 U/L (38-126); Anion Gap 7.7 mEq/L (5-15); Aspartate Amino Transferase 35 U/L (14-36); Bilirubin,Total 0.5 mg/dl (0.2-1.3); Blood Urea Nitrogen 15 mg/dl (7-17); Carbon Dioxide 25 mmol/L (22.0-30.0); Creatinine Clearance Estimated 44 mL/min (50-200); Estimated Glomerular Filt Rate 61 ml/min (>60); GFR (African American) 74 ML/MIN (>60); Globulin 2.2 g/dL (1.3-3.2)
[2024-07-07 09:28] LABS: Calcium 9.6 mg/dl (8.4-10.2); Glucose 134 mg/dl (74-100)
--- NOTE | 2024-07-07 09:33 | PC.NURSE ---
0933nallely, restaurant line cook here to witness lidia rn draw type and screen from right chest pac.
[2024-07-07 10:04] LABS: Eosinophils % 2 % (0-3); Lymphocytes % 60 % (10-50); Monocytes % 12 % (2-9); Neutrophils % 26 % (42-76); RBC Morphology Normal; Total Cells Counted 50
[2024-07-07 10:05] LABS: Platelet Estimate Marked Decrease
[2024-07-07] MEDS: 0.9 % SODIUM CHLORIDE 250 ML 25 ML IV (14:20)
[2024-07-07] MEDS: SODIUM CHLORIDE 0.9% 10ML FLUSH SYRINGE 10 ML IV (14:50)
== END 2024-07-07 15:12 | disposition home or self-care (01) ==
LOC: INF 09:00
PROVIDERS: PCP Family Medicine; Visit Provider Internal Medicine Medical Oncology
DX: C92.00 Acute myeloblastic leukemia, not having achieved remission (principal)
CPT/HCPCS: 36430; 80053; 85007; 85025; 86900; 86901; J1642; P9034

== ENCOUNTER 2024-07-09 08:55 | Outpatient (CLI) | payer MEDICARE, BC, SELFPAY ==
[2024-07-09 08:59] VITALS: BMI 21.4
[2024-07-09 09:17] LABS: Eosinophils % 1.4 % (0.1-12.0); Hematocrit 23.8 % (37.0-47.0); Hemoglobin 7.9 g/dL (12.2-16.2); Lymphocytes # 1.1 K/mm3 (0.7-4.5); Lymphocytes % 53.1 % (10-50); Mean Corpuscular HGB Conc 33.2 g/dL (31.8-35.4); Mean Corpuscular Hemoglobin 29.8 pg (27.0-31.2); Mean Corpuscular Volume 89.8 fl (81-99); Mean Platelet Volume 8.7 fl (7.4-10.4); Monocytes # 0.2 K/mm3 (0.1-1.0); Monocytes % 9.5 % (1.7-9.3); Neutrophils # 0.8 K/mm3 (1.8-7.8); Neutrophils % 35.5 % (37.0-80.0); Red Blood Count 2.65 M/mm3 (4.20-5.40); Red Cell Distribution Width 16.7 % (11.5-17.5); White Blood Count 2.1 K/mm3 (4.8-10.8)
[2024-07-09 09:21] LABS: Platelet Count 24 K/mm3 (142-424)
[2024-07-09 09:22] LABS: MANUAL DIFFERENTIAL MANUAL DIFFERENTIAL (MANUAL DIFF)
[2024-07-09 09:29] LABS: Alanine Aminotransferase 16 U/L (12-78); Albumin Level 3.9 g/dl (3.5-5.0); Albumin/Globulin Ratio 1.8 (1.1-1.8); Alkaline Phosphatase 36 U/L (38-126); Aspartate Amino Transferase 32 U/L (14-36); Bilirubin,Total 0.4 mg/dl (0.2-1.3); Blood Urea Nitrogen 21 mg/dl (7-17); Calcium 10.2 mg/dl (8.4-10.2); Carbon Dioxide 23 mmol/L (22.0-30.0); Chloride 108 mmol/L (98-107); Creatinine Clearance Estimated 45 mL/min (50-200); Estimated Glomerular Filt Rate 54 ml/min (>60); GFR (African American) 66 ML/MIN (>60); Globulin 2.2 g/dL (1.3-3.2); Glucose 146 mg/dl (74-100); Sodium 140 mmol/L (136-145); Total Protein,Serum 6.1 g/dl (6.3-8.2)
[2024-07-09] MEDS: SODIUM CHLORIDE 0.9% 10ML FLUSH SYRINGE 10 ML IV (09:30)
--- NOTE | 2024-07-09 09:35 | PC.NURSE ---
0935-pt d/c home per md standing order hbg 7.9 and plt count 24.
[2024-07-09 09:46] LABS: Anisocytosis 1+; Hypochromasia 1+; Lymphocytes % 42 % (10-50); Monocytes % 4 % (2-9); Neutrophils % 54 % (42-76); Platelet Estimate Marked Decrease; RBC Morphology Normal; Total Cells Counted 100
== END 2024-07-09 09:35 | disposition home or self-care (01) ==
LOC: INF 08:56
PROVIDERS: PCP Family Medicine; Visit Provider Internal Medicine Medical Oncology
DX: C92.00 Acute myeloblastic leukemia, not having achieved remission (principal)
CPT/HCPCS: 36591; 80053; 85007; 85025; J1642

== ENCOUNTER 2024-07-11 08:53 | Outpatient (CLI) | payer MEDICARE, BC, SELFPAY ==
[2024-07-11 08:56] VITALS: BMI 22.1
[2024-07-11 09:10] LABS: Eosinophils % 1.4 % (0.1-12.0); Hemoglobin 7.7 g/dL (12.2-16.2); Lymphocytes # 1.1 K/mm3 (0.7-4.5); Lymphocytes % 48.6 % (10-50); Mean Corpuscular HGB Conc 33.5 g/dL (31.8-35.4); Mean Corpuscular Hemoglobin 30.2 pg (27.0-31.2); Mean Corpuscular Volume 90.2 fl (81-99); Mean Platelet Volume 10.4 fl (7.4-10.4); Monocytes # 0.2 K/mm3 (0.1-1.0); Monocytes % 10.5 % (1.7-9.3); Neutrophils # 0.9 K/mm3 (1.8-7.8); Neutrophils % 39.5 % (37.0-80.0); Red Blood Count 2.55 M/mm3 (4.20-5.40); Red Cell Distribution Width 16.9 % (11.5-17.5); White Blood Count 2.2 K/mm3 (4.8-10.8)
[2024-07-11 09:13] LABS: Platelet Count 19 K/mm3 (142-424)
[2024-07-11 09:22] LABS: Albumin Level 3.9 g/dl (3.5-5.0); Chloride 109 mmol/L (98-107); Potassium 3.6 mmoL/L (3.5-5.1); Sodium 140 mmol/L (136-145)
[2024-07-11 09:25] LABS: Alanine Aminotransferase 18 U/L (12-78); Alkaline Phosphatase 39 U/L (38-126); Anion Gap 11.6 mEq/L (5-15); Aspartate Amino Transferase 35 U/L (14-36); Bilirubin,Total 0.4 mg/dl (0.2-1.3); Blood Urea Nitrogen 19 mg/dl (7-17); Carbon Dioxide 23 mmol/L (22.0-30.0); Creatinine Clearance Estimated 46 mL/min (50-200); Estimated Glomerular Filt Rate 61 ml/min (>60); GFR (African American) 74 ML/MIN (>60); Total Protein,Serum 5.9 g/dl (6.3-8.2)
[2024-07-11 09:26] LABS: Calcium 10.2 mg/dl (8.4-10.2); Glucose 168 mg/dl (74-100)
== END 2024-07-11 09:30 | disposition home or self-care (01) ==
LOC: INF 08:54
PROVIDERS: PCP Family Medicine; Visit Provider Internal Medicine Medical Oncology
DX: C95.90 Leukemia, unspecified not having achieved remission (principal)
CPT/HCPCS: 36591; 80053; 85025; J1642

== ENCOUNTER 2024-07-14 08:54 | Outpatient (CLI) | payer MEDICARE, BC, SELFPAY ==
[2024-07-14] VITALS (15 sets, daily range): BP systolic 113–146; BP diastolic 46–78; PULSE 64–83; RESP 17–18; TEMP 36.6–36.8; O2SAT 100; BMI 21.4
[2024-07-14 09:15] LABS: Albumin Level 3.8 g/dl (3.5-5.0); Basophils % 0.5 % (0.1-2.0); Chloride 107 mmol/L (98-107); Eosinophils % 0.9 % (0.1-12.0); Lymphocytes # 0.9 K/mm3 (0.7-4.5); Lymphocytes % 42.2 % (10-50); Mean Corpuscular HGB Conc 33.2 g/dL (31.8-35.4); Mean Corpuscular Hemoglobin 30.3 pg (27.0-31.2); Mean Corpuscular Volume 91.2 fl (81-99); Monocytes # 0.2 K/mm3 (0.1-1.0); Neutrophils % 44.9 % (37.0-80.0); Red Blood Count 2.28 M/mm3 (4.20-5.40); Red Cell Distribution Width 17.7 % (11.5-17.5); Sodium 138 mmol/L (136-145); White Blood Count 2.2 K/mm3 (4.8-10.8)
[2024-07-14 09:16] LABS: Potassium 3.9 mmoL/L (3.5-5.1)
[2024-07-14 09:18] LABS: Alanine Aminotransferase 17 U/L (12-78); Albumin/Globulin Ratio 1.9 (1.1-1.8); Alkaline Phosphatase 41 U/L (38-126); Anion Gap 12.9 mEq/L (5-15); Aspartate Amino Transferase 36 U/L (14-36); Bilirubin,Total 0.4 mg/dl (0.2-1.3); Blood Urea Nitrogen 23 mg/dl (7-17); Carbon Dioxide 22 mmol/L (22.0-30.0); Creatinine Clearance Estimated 45 mL/min (50-200); Estimated Glomerular Filt Rate 61 ml/min (>60); GFR (African American) 74 ML/MIN (>60); Total Protein,Serum 5.8 g/dl (6.3-8.2)
[2024-07-14 09:19] LABS: Calcium 9.4 mg/dl (8.4-10.2); Glucose 165 mg/dl (74-100)
[2024-07-14 09:20] LABS: Hematocrit 20.8 % (37.0-47.0); Hemoglobin 6.9 g/dL (12.2-16.2); Platelet Count 8 K/mm3 (142-424)
[2024-07-14] MEDS: ACETAMINOPHEN 325MG TAB 650 MG PO (09:25)
[2024-07-14] MEDS: diphenhydrAMINE 25MG CAPSULE 25 MG PO (09:26)
[2024-07-14] MEDS: SODIUM CHLORIDE 0.9% 10ML FLUSH SYRINGE 10 ML IV (16:28)
== END 2024-07-14 16:48 | disposition home or self-care (01) ==
LOC: INF 08:55
PROVIDERS: PCP Family Medicine; Visit Provider Internal Medicine Medical Oncology
DX: C92.00 Acute myeloblastic leukemia, not having achieved remission (principal)
CPT/HCPCS: 36430; 80053; 85025; 86850; J1642; P9016; P9034

== ENCOUNTER 2024-07-18 08:54 | Outpatient (CLI) | payer MEDICARE, BC, SELFPAY ==
[2024-07-18 09:00] VITALS: BMI 22.1
[2024-07-18] MEDS: SODIUM CHLORIDE 0.9% 10ML FLUSH SYRINGE 10 ML IV (09:10)
[2024-07-18 09:25] LABS: Basophils % 0.5 % (0.1-2.0); Eosinophils % 1.5 % (0.1-12.0); Hematocrit 24.8 % (37.0-47.0); Hemoglobin 8.4 g/dL (12.2-16.2); Lymphocytes % 49.3 % (10-50); Mean Corpuscular HGB Conc 33.9 g/dL (31.8-35.4); Mean Corpuscular Hemoglobin 31.3 pg (27.0-31.2); Mean Corpuscular Volume 92.5 fl (81-99); Mean Platelet Volume 11.5 fl (7.4-10.4); Monocytes # 0.2 K/mm3 (0.1-1.0); Monocytes % 11.2 % (1.7-9.3); Neutrophils # 0.8 K/mm3 (1.8-7.8); Red Blood Count 2.68 M/mm3 (4.20-5.40); Red Cell Distribution Width 17.7 % (11.5-17.5); White Blood Count 2.1 K/mm3 (4.8-10.8)
[2024-07-18 09:27] LABS: Albumin Level 3.7 g/dl (3.5-5.0); Chloride 107 mmol/L (98-107)
[2024-07-18 09:28] LABS: Potassium 3.9 mmoL/L (3.5-5.1); Sodium 140 mmol/L (136-145)
[2024-07-18 09:30] LABS: Anion Gap 10.9 mEq/L (5-15); Blood Urea Nitrogen 20 mg/dl (7-17); Carbon Dioxide 26 mmol/L (22.0-30.0); Creatinine Clearance Estimated 46 mL/min (50-200); Estimated Glomerular Filt Rate 54 ml/min (>60); GFR (African American) 66 ML/MIN (>60)
[2024-07-18 09:31] LABS: Alanine Aminotransferase 17 U/L (12-78); Albumin/Globulin Ratio 1.5 (1.1-1.8); Alkaline Phosphatase 40 U/L (38-126); Aspartate Amino Transferase 33 U/L (14-36); Bilirubin,Total 0.4 mg/dl (0.2-1.3); Calcium 10.3 mg/dl (8.4-10.2); Globulin 2.4 g/dL (1.3-3.2); Glucose 143 mg/dl (74-100); Total Protein,Serum 6.1 g/dl (6.3-8.2)
[2024-07-18 09:38] LABS: Platelet Count 24 K/mm3 (142-424)
== END 2024-07-18 09:45 | disposition home or self-care (01) ==
LOC: INF 08:55
PROVIDERS: PCP Family Medicine; Visit Provider Internal Medicine Medical Oncology
DX: C95.90 Leukemia, unspecified not having achieved remission (principal)
CPT/HCPCS: 36591; 80053; 85025; J1642

== ENCOUNTER 2024-07-21 08:53 | Outpatient (CLI) | payer MEDICARE, BC, SELFPAY ==
[2024-07-21 08:58] VITALS: BMI 22.6
[2024-07-21 09:10] LABS: Basophils % 0.4 % (0.1-2.0); Eosinophils # 0.1 K/mm3 (0.0-0.4); Hematocrit 24.8 % (37.0-47.0); Hemoglobin 8.5 g/dL (12.2-16.2); Lymphocytes # 1.3 K/mm3 (0.7-4.5); Lymphocytes % 53.7 % (10-50); Mean Corpuscular HGB Conc 34.3 g/dL (31.8-35.4); Mean Corpuscular Hemoglobin 31.8 pg (27.0-31.2); Mean Corpuscular Volume 92.9 fl (81-99); Mean Platelet Volume 10.6 fl (7.4-10.4); Monocytes # 0.3 K/mm3 (0.1-1.0); Monocytes % 10.7 % (1.7-9.3); Neutrophils # 0.8 K/mm3 (1.8-7.8); Neutrophils % 32.8 % (37.0-80.0); Red Blood Count 2.67 M/mm3 (4.20-5.40); Red Cell Distribution Width 18.9 % (11.5-17.5); White Blood Count 2.4 K/mm3 (4.8-10.8)
[2024-07-21 09:19] LABS: Albumin Level 3.7 g/dl (3.5-5.0); Chloride 108 mmol/L (98-107); Sodium 139 mmol/L (136-145)
[2024-07-21 09:22] LABS: Alanine Aminotransferase 15 U/L (12-78); Albumin/Globulin Ratio 1.5 (1.1-1.8); Alkaline Phosphatase 39 U/L (38-126); Aspartate Amino Transferase 33 U/L (14-36); Bilirubin,Total 0.5 mg/dl (0.2-1.3); Blood Urea Nitrogen 20 mg/dl (7-17); Calcium 9.8 mg/dl (8.4-10.2); Carbon Dioxide 24 mmol/L (22.0-30.0); Creatinine Clearance Estimated 47 mL/min (50-200); Estimated Glomerular Filt Rate 54 ml/min (>60); GFR (African American) 66 ML/MIN (>60); Globulin 2.5 g/dL (1.3-3.2); Glucose 129 mg/dl (74-100); Total Protein,Serum 6.2 g/dl (6.3-8.2)
[2024-07-21 09:30] LABS: Platelet Count 14 K/mm3 (142-424)
[2024-07-21 09:31] LABS: MANUAL DIFFERENTIAL MANUAL DIFFERENTIAL (MANUAL DIFF)
[2024-07-21] MEDS: SODIUM CHLORIDE 0.9% 10ML FLUSH SYRINGE 10 ML IV (09:31)
[2024-07-21 10:32] LABS: Eosinophils % 4 % (0-3); Lymphocytes % 52 % (10-50); Monocytes % 8 % (2-9); Neutrophils % 36 % (42-76); Total Cells Counted 25
[2024-07-21 10:33] LABS: Platelet Estimate Moderate Decrease; RBC Morphology Normal
== END 2024-07-21 09:35 | disposition home or self-care (01) ==
LOC: INF 08:54
PROVIDERS: PCP Family Medicine; Visit Provider Internal Medicine Medical Oncology
DX: D61.818 Other pancytopenia (principal)
CPT/HCPCS: 36591; 80053; 85007; 85025; J1642

== ENCOUNTER 2024-07-23 08:53 | Outpatient (CLI) | payer MEDICARE, BC, SELFPAY ==
[2024-07-23] VITALS (7 sets, daily range): BP systolic 124–146; BP diastolic 50–76; PULSE 71–75; RESP 18; TEMP 36.6–36.8; O2SAT 98–100; BMI 21.4
[2024-07-23 09:13] LABS: Eosinophils % 1.7 % (0.1-12.0); Hemoglobin 7.9 g/dL (12.2-16.2); Lymphocytes # 1.2 K/mm3 (0.7-4.5); Lymphocytes % 50.4 % (10-50); Mean Corpuscular HGB Conc 34.3 g/dL (31.8-35.4); Mean Corpuscular Hemoglobin 31.6 pg (27.0-31.2); Monocytes # 0.2 K/mm3 (0.1-1.0); Monocytes % 9.6 % (1.7-9.3); Neutrophils # 0.9 K/mm3 (1.8-7.8); Neutrophils % 37.9 % (37.0-80.0); Red Cell Distribution Width 19.7 % (11.5-17.5); White Blood Count 2.4 K/mm3 (4.8-10.8)
[2024-07-23 09:17] LABS: Platelet Count 9 K/mm3 (142-424)
[2024-07-23 09:18] LABS: MANUAL DIFFERENTIAL MANUAL DIFFERENTIAL (MANUAL DIFF)
[2024-07-23 09:19] LABS: Albumin Level 3.6 g/dl (3.5-5.0); Chloride 106 mmol/L (98-107); Sodium 137 mmol/L (136-145)
[2024-07-23 09:20] LABS: Potassium 3.9 mmoL/L (3.5-5.1)
[2024-07-23 09:22] LABS: Alanine Aminotransferase 15 U/L (12-78); Albumin/Globulin Ratio 1.5 (1.1-1.8); Anion Gap 10.9 mEq/L (5-15); Aspartate Amino Transferase 34 U/L (14-36); Blood Urea Nitrogen 23 mg/dl (7-17); Carbon Dioxide 24 mmol/L (22.0-30.0); Creatinine Clearance Estimated 45 mL/min (50-200); Estimated Glomerular Filt Rate 54 ml/min (>60); GFR (African American) 66 ML/MIN (>60); Globulin 2.4 g/dL (1.3-3.2)
[2024-07-23 09:23] LABS: Alkaline Phosphatase 37 U/L (38-126); Bilirubin,Total 0.4 mg/dl (0.2-1.3); Glucose 140 mg/dl (74-100)
[2024-07-23] MEDS: 0.9 % SODIUM CHLORIDE 250 ML 25 ML IV (09:30)
[2024-07-23 09:46] LABS: Anisocytosis 1+; Eosinophils % 2 % (0-3); Hypochromasia 1+; Lymphocytes % 42 % (10-50); Macrocytosis 1+; Monocytes % 6 % (2-9); Neutrophils % 48 % (42-76); Platelet Estimate Marked Decrease; Total Cells Counted 100
[2024-07-23] MEDS: SODIUM CHLORIDE 0.9% 10ML FLUSH SYRINGE 10 ML IV (13:20)
== END 2024-07-23 13:30 | disposition home or self-care (01) ==
LOC: INF 08:54
PROVIDERS: PCP Family Medicine; Visit Provider Internal Medicine Medical Oncology
DX: C92.00 Acute myeloblastic leukemia, not having achieved remission (principal)
CPT/HCPCS: 36430; 80053; 85007; 85025; 86900; 86901; J1642; P9034

== ENCOUNTER 2024-07-25 08:49 | Outpatient (CLI) | payer MEDICARE, BC, SELFPAY ==
[2024-07-25 08:53] VITALS: BMI 21.4
[2024-07-25 09:07] LABS: Basophils % 0.4 % (0.1-2.0); Eosinophils # 0.1 K/mm3 (0.0-0.4); Eosinophils % 2.7 % (0.1-12.0); Hematocrit 22.9 % (37.0-47.0); Hemoglobin 7.6 g/dL (12.2-16.2); Lymphocytes # 1.2 K/mm3 (0.7-4.5); Lymphocytes % 53.1 % (10-50); Mean Corpuscular HGB Conc 33.2 g/dL (31.8-35.4); Mean Corpuscular Hemoglobin 31.1 pg (27.0-31.2); Mean Corpuscular Volume 93.9 fl (81-99); Mean Platelet Volume 9.8 fl (7.4-10.4); Monocytes # 0.2 K/mm3 (0.1-1.0); Monocytes % 10.3 % (1.7-9.3); Neutrophils # 0.7 K/mm3 (1.8-7.8); Neutrophils % 33.1 % (37.0-80.0); Nucleated Red Blood Cells # 0 10^3/uL; Nucleated Red Blood Cells % 0 %; Red Blood Count 2.44 M/mm3 (4.20-5.40); Red Cell Distribution Width 20.6 % (11.5-17.5); Red Cell Distribution Width-SD 50.1 fL; White Blood Count 2.2 K/mm3 (4.8-10.8)
[2024-07-25 09:12] LABS: Platelet Count 40 K/mm3 (142-424)
[2024-07-25 09:13] LABS: MANUAL DIFFERENTIAL MANUAL DIFFERENTIAL (MANUAL DIFF)
[2024-07-25 09:14] LABS: Chloride 107 mmol/L (98-107)
[2024-07-25 09:15] LABS: Albumin Level 3.8 g/dl (3.5-5.0); Sodium 139 mmol/L (136-145)
[2024-07-25] MEDS: SODIUM CHLORIDE 0.9% 10ML FLUSH SYRINGE 10 ML IV (09:15)
[2024-07-25 09:17] LABS: Blood Urea Nitrogen 19 mg/dl (7-17); Creatinine Clearance Estimated 45 mL/min (50-200); Estimated Glomerular Filt Rate 54 ml/min (>60); GFR (African American) 66 ML/MIN (>60)
[2024-07-25 09:18] LABS: Alanine Aminotransferase 16 U/L (12-78); Albumin/Globulin Ratio 1.4 (1.1-1.8); Alkaline Phosphatase 41 U/L (38-126); Aspartate Amino Transferase 41 U/L (14-36); Bilirubin,Total 0.3 mg/dl (0.2-1.3); Calcium 9.9 mg/dl (8.4-10.2); Carbon Dioxide 25 mmol/L (22.0-30.0); Globulin 2.8 g/dL (1.3-3.2); Glucose 143 mg/dl (74-100); Total Protein,Serum 6.6 g/dl (6.3-8.2)
[2024-07-25 11:38] LABS: Lymphocytes % 58 % (10-50); Monocytes % 7 % (2-9); Neutrophils % 35 % (42-76); Platelet Estimate Marked Decrease; RBC Morphology Normal; Total Cells Counted 100
== END 2024-07-25 09:18 | disposition home or self-care (01) ==
LOC: INF 08:50
PROVIDERS: PCP Family Medicine; Visit Provider Internal Medicine Medical Oncology
DX: C92.00 Acute myeloblastic leukemia, not having achieved remission (principal)
CPT/HCPCS: 36591; 80053; 85007; 85025; J1642

== ENCOUNTER 2024-07-28 08:54 | Outpatient (CLI) | payer MEDICARE, BC, SELFPAY ==
[2024-07-28 09:05] VITALS: BMI 21.4
[2024-07-28 09:14] LABS: Basophils % 0.4 % (0.1-2.0); Eosinophils # 0.1 K/mm3 (0.0-0.4); Eosinophils % 2.5 % (0.1-12.0); Lymphocytes # 1.2 K/mm3 (0.7-4.5); Mean Corpuscular HGB Conc 33.2 g/dL (31.8-35.4); Mean Corpuscular Hemoglobin 31.9 pg (27.0-31.2); Mean Corpuscular Volume 96.1 fl (81-99); Mean Platelet Volume 11.5 fl (7.4-10.4); Monocytes # 0.2 K/mm3 (0.1-1.0); Monocytes % 9.1 % (1.7-9.3); Neutrophils # 0.9 K/mm3 (1.8-7.8); Nucleated Red Blood Cells # 0 10^3/uL; Nucleated Red Blood Cells % 0 %; Red Blood Count 2.29 M/mm3 (4.20-5.40); Red Cell Distribution Width 22.3 % (11.5-17.5); Red Cell Distribution Width-SD 54.6 fL; White Blood Count 2.4 K/mm3 (4.8-10.8)
[2024-07-28 09:18] LABS: Albumin Level 3.8 g/dl (3.5-5.0); Chloride 108 mmol/L (98-107); Sodium 142 mmol/L (136-145)
[2024-07-28 09:21] LABS: Alanine Aminotransferase 17 U/L (12-78); Albumin/Globulin Ratio 1.4 (1.1-1.8); Aspartate Amino Transferase 34 U/L (14-36); Blood Urea Nitrogen 26 mg/dl (7-17); Carbon Dioxide 23 mmol/L (22.0-30.0); Creatinine Clearance Estimated 45 mL/min (50-200); Estimated Glomerular Filt Rate 54 ml/min (>60); GFR (African American) 66 ML/MIN (>60); Globulin 2.7 g/dL (1.3-3.2); Total Protein,Serum 6.5 g/dl (6.3-8.2)
[2024-07-28 09:22] LABS: Alkaline Phosphatase 41 U/L (38-126); Bilirubin,Total 0.4 mg/dl (0.2-1.3); Calcium 9.8 mg/dl (8.4-10.2); Glucose 165 mg/dl (74-100)
[2024-07-28 09:31] LABS: Hemoglobin 7.4 g/dL (12.2-16.2)
[2024-07-28 09:32] LABS: Platelet Count 22 K/mm3 (142-424)
[2024-07-28] MEDS: SODIUM CHLORIDE 0.9% 10ML FLUSH SYRINGE 10 ML IV (09:48)
== END 2024-07-28 09:52 | disposition home or self-care (01) ==
LOC: INF 08:55
PROVIDERS: PCP Family Medicine; Visit Provider Internal Medicine Medical Oncology
DX: C92.00 Acute myeloblastic leukemia, not having achieved remission (principal)
CPT/HCPCS: 36591; 80053; 85025; J1642

== ENCOUNTER 2024-08-01 08:57 | Outpatient (CLI) | payer MEDICARE, BC, SELFPAY ==
[2024-08-01] VITALS (10 sets, daily range): BP systolic 109–138; BP diastolic 45–68; PULSE 68–82; RESP 15–16; TEMP 36.4–36.7; O2SAT 100; BMI 21.4
[2024-08-01 09:26] LABS: Basophils % 0.4 % (0.1-2.0); Eosinophils # 0.1 Kmm3 (0.0-0.4); Eosinophils % 2.5 % (0.1-12.0); Lymphocytes % 40.9 % (10-50); Mean Corpuscular Volume 97.2 fl (81-99); Monocytes # 0.2 K/mm3 (0.1-1.0); Monocytes % 9.7 % (1.7-9.3); Neutrophils # 1.1 K/mm3 (1.8-7.8); Neutrophils % 46.1 % (37.0-80.0); Nucleated Red Blood Cells # 0 10^3/uL; Nucleated Red Blood Cells % 0 %; Red Blood Count 2.12 M/mm3 (4.20-5.40); Red Cell Distribution Width 23.8 % (11.5-17.5); Red Cell Distribution Width-SD 79.7 fL; White Blood Count 2.4 K/mm3 (4.8-10.8)
[2024-08-01 09:28] LABS: Hematocrit 20.6 % (37.0-47.0); Platelet Count 10 K/mm3 (142-424)
[2024-08-01 09:34] LABS: Alanine Aminotransferase 16 U/L (12-78); Albumin Level 3.5 g/dl (3.5-5.0); Albumin/Globulin Ratio 1.3 (1.1-1.8); Alkaline Phosphatase 39 U/L (38-126); Anion Gap 11.7 mEq/L (5-15); Aspartate Amino Transferase 35 U/L (14-36); Bilirubin,Total 0.4 mg/dl (0.2-1.3); Blood Urea Nitrogen 19 mg/dl (7-17); Calcium 9.3 mg/dl (8.4-10.2); Carbon Dioxide 24 mmol/L (22.0-30.0); Chloride 107 mmol/L (98-107); Creatinine Clearance Estimated 45 mL/min (50-200); Estimated Glomerular Filt Rate 61 ml/min (>60); GFR (African American) 74 ML/MIN (>60); Globulin 2.6 g/dL (1.3-3.2); Glucose 135 mg/dl (74-100); Potassium 3.7 mmoL/L (3.5-5.1); Sodium 139 mmol/L (136-145); Total Protein,Serum 6.1 g/dl (6.3-8.2)
[2024-08-01] MEDS: ACETAMINOPHEN 325MG TAB 650 MG PO (12:00)
[2024-08-01] MEDS: diphenhydrAMINE 25MG CAPSULE 25 MG PO (12:00)
[2024-08-01] MEDS: SODIUM CHLORIDE 0.9% 250ML BAG 250 ML IV (13:00)
--- NOTE | 2024-08-01 13:35 | PC.NURSE ---
1330-Increased rate to 200 ml/hr at this time.
--- NOTE | 2024-08-01 14:09 | PC.NURSE ---
1400-Increased rate to 250 ml/hr at this time.
== END 2024-08-01 15:38 | disposition home or self-care (01) ==
LOC: INF 08:58
PROVIDERS: PCP Family Medicine; Visit Provider Internal Medicine Medical Oncology
DX: C92.00 Acute myeloblastic leukemia, not having achieved remission (principal)
CPT/HCPCS: 36430; 80053; 85025; 86850; J1642; P9016

== ENCOUNTER 2024-08-04 08:53 | Outpatient (CLI) | payer MEDICARE, BC, SELFPAY ==
[2024-08-04] VITALS (7 sets, daily range): BP systolic 107–125; BP diastolic 46–58; PULSE 68–75; RESP 14–16; TEMP 36.6–36.8; O2SAT 98–100; BMI 21.8
[2024-08-04 09:16] LABS: Basophils % 0.4 % (0.1-2.0); Eosinophils # 0.1 Kmm3 (0.0-0.4); Eosinophils % 2.1 % (0.1-12.0); Hematocrit 24.4 % (37.0-47.0); Hemoglobin 8.2 g/dL (12.2-16.2); Lymphocytes # 1.1 K/mm3 (0.7-4.5); Lymphocytes % 45.2 % (10-50); Mean Corpuscular HGB Conc 33.6 g/dL (31.8-35.4); Mean Corpuscular Hemoglobin 32.9 pg (27.0-31.2); Mean Platelet Volume 10.7 fl (7.4-10.4); Monocytes # 0.2 K/mm3 (0.1-1.0); Monocytes % 9.6 % (1.7-9.3); Neutrophils % 42.3 % (37.0-80.0); Nucleated Red Blood Cells # 0 10^3/uL; Nucleated Red Blood Cells % 0 %; Red Blood Count 2.49 M/mm3 (4.20-5.40); Red Cell Distribution Width 22.6 % (11.5-17.5); Red Cell Distribution Width-SD 78.3 fL; White Blood Count 2.4 K/mm3 (4.8-10.8)
[2024-08-04 09:23] LABS: Albumin Level 3.6 g/dl (3.5-5.0); Chloride 110 mmol/L (98-107); Potassium 3.8 mmoL/L (3.5-5.1); Sodium 139 mmol/L (136-145)
[2024-08-04 09:25] LABS: Platelet Count 8 K/mm3 (142-424)
[2024-08-04 09:26] LABS: Alanine Aminotransferase 16 U/L (12-78); Albumin/Globulin Ratio 1.3 (1.1-1.8); Alkaline Phosphatase 42 U/L (38-126); Anion Gap 9.8 mEq/L (5-15); Aspartate Amino Transferase 36 U/L (14-36); Bilirubin,Total 0.2 mg/dl (0.2-1.3); Blood Urea Nitrogen 22 mg/dl (7-17); Calcium 9.4 mg/dl (8.4-10.2); Carbon Dioxide 23 mmol/L (22.0-30.0); Creatinine Clearance Estimated 46 mL/min (50-200); Estimated Glomerular Filt Rate 61 ml/min (>60); GFR (African American) 74 ML/MIN (>60); Globulin 2.7 g/dL (1.3-3.2); Glucose 141 mg/dl (74-100); Total Protein,Serum 6.3 g/dl (6.3-8.2)
[2024-08-04] MEDS: 0.9 % SODIUM CHLORIDE 250 ML 62.5 ML IV (14:39)
[2024-08-04] MEDS: SODIUM CHLORIDE 0.9% 10ML FLUSH SYRINGE 10 ML IV (15:37)
--- NOTE | 2024-08-04 15:42 | PC.NURSE ---
post transfusion platelet vital signs at 1533 BP 108/54, pulse 74, resp rate 14, temp 98.0 temporal, O2 sat 99% room air. Patient discharging home stable/ denies complaints/ no problems or s/s transfusion reaction noted.
== END 2024-08-04 15:37 | disposition home or self-care (01) ==
LOC: INF 08:54
PROVIDERS: PCP Family Medicine; Visit Provider Internal Medicine Medical Oncology
DX: C92.00 Acute myeloblastic leukemia, not having achieved remission (principal)
CPT/HCPCS: 36430; 80053; 85025; 86900; 86901; J1642; P9034

== ENCOUNTER 2024-08-06 09:01 | Outpatient (CLI) | payer MEDICARE, BC, SELFPAY ==
[2024-08-06 09:04] VITALS: BMI 21.8
[2024-08-06 09:21] LABS: Basophils % 0.4 % (0.1-2.0); Eosinophils # 0.1 Kmm3 (0.0-0.4); Hematocrit 23.5 % (37.0-47.0); Hemoglobin 7.9 g/dL (12.2-16.2); Lymphocytes # 1.1 K/mm3 (0.7-4.5); Lymphocytes % 40.2 % (10-50); Mean Corpuscular HGB Conc 33.6 g/dL (31.8-35.4); Mean Corpuscular Hemoglobin 33.3 pg (27.0-31.2); Mean Corpuscular Volume 99.2 fl (81-99); Mean Platelet Volume 11.4 fl (7.4-10.4); Monocytes # 0.3 K/mm3 (0.1-1.0); Monocytes % 9.4 % (1.7-9.3); Neutrophils # 1.2 K/mm3 (1.8-7.8); Neutrophils % 46.2 % (37.0-80.0); Nucleated Red Blood Cells # 0 10^3/uL; Nucleated Red Blood Cells % 0 %; Red Blood Count 2.37 M/mm3 (4.20-5.40); Red Cell Distribution Width 23.5 % (11.5-17.5); Red Cell Distribution Width-SD 80.6 fL; White Blood Count 2.7 K/mm3 (4.8-10.8)
[2024-08-06 09:25] LABS: Platelet Count 35 K/mm3 (142-424)
[2024-08-06 09:31] LABS: Alanine Aminotransferase 17 U/L (12-78); Albumin Level 3.5 g/dl (3.5-5.0); Albumin/Globulin Ratio 1.3 (1.1-1.8); Alkaline Phosphatase 45 U/L (38-126); Anion Gap 10.8 mEq/L (5-15); Aspartate Amino Transferase 36 U/L (14-36); Bilirubin,Total 0.4 mg/dl (0.2-1.3); Blood Urea Nitrogen 28 mg/dl (7-17); Calcium 9.3 mg/dl (8.4-10.2); Carbon Dioxide 23 mmol/L (22.0-30.0); Chloride 110 mmol/L (98-107); Creatinine Clearance Estimated 41 mL/min (50-200); Estimated Glomerular Filt Rate 49 ml/min (>60); GFR (African American) 59 ML/MIN (>60); Globulin 2.8 g/dL (1.3-3.2); Glucose 127 mg/dl (74-100); Potassium 3.8 mmoL/L (3.5-5.1); Sodium 140 mmol/L (136-145); Total Protein,Serum 6.3 g/dl (6.3-8.2)
[2024-08-06] MEDS: SODIUM CHLORIDE 0.9% 10ML FLUSH SYRINGE 10 ML IV (09:49)
== END 2024-08-06 09:38 | disposition home or self-care (01) ==
LOC: INF 09:01
PROVIDERS: PCP Family Medicine; Visit Provider Internal Medicine Medical Oncology
DX: C92.00 Acute myeloblastic leukemia, not having achieved remission (principal)
CPT/HCPCS: 36591; 80053; 85025; J1642

== ENCOUNTER 2024-08-08 08:54 | Outpatient (CLI) | payer MEDICARE, BC, SELFPAY ==
[2024-08-08 08:56] VITALS: BMI 22.1
[2024-08-08 09:19] LABS: Eosinophils # 0.1 Kmm3 (0.0-0.4); Eosinophils % 2.6 % (0.1-12.0); Hematocrit 24.3 % (37.0-47.0); Mean Corpuscular HGB Conc 32.9 g/dL (31.8-35.4); Mean Corpuscular Hemoglobin 33.1 pg (27.0-31.2); Mean Corpuscular Volume 100.4 fl (81-99); Mean Platelet Volume 10.9 fl (7.4-10.4); Monocytes # 0.2 K/mm3 (0.1-1.0); Monocytes % 8.2 % (1.7-9.3); Neutrophils % 43.8 % (37.0-80.0); Nucleated Red Blood Cells # 0 10^3/uL; Nucleated Red Blood Cells % 0 %; Red Blood Count 2.42 M/mm3 (4.20-5.40); Red Cell Distribution Width 24.2 % (11.5-17.5); White Blood Count 2.3 K/mm3 (4.8-10.8)
[2024-08-08 09:21] LABS: Albumin Level 3.4 g/dl (3.5-5.0); Chloride 110 mmol/L (98-107); Potassium 4.1 mmoL/L (3.5-5.1); Sodium 139 mmol/L (136-145)
[2024-08-08 09:23] LABS: Blood Urea Nitrogen 31 mg/dl (7-17)
[2024-08-08 09:24] LABS: Alanine Aminotransferase 15 U/L (12-78); Albumin/Globulin Ratio 1.3 (1.1-1.8); Alkaline Phosphatase 44 U/L (38-126); Anion Gap 10.1 mEq/L (5-15); Aspartate Amino Transferase 36 U/L (14-36); Bilirubin,Total 0.4 mg/dl (0.2-1.3); Calcium 9.3 mg/dl (8.4-10.2); Carbon Dioxide 23 mmol/L (22.0-30.0); Creatinine Clearance Estimated 39 mL/min (50-200); Estimated Glomerular Filt Rate 44 ml/min (>60); GFR (African American) 53 ML/MIN (>60); Globulin 2.6 g/dL (1.3-3.2); Glucose 137 mg/dl (74-100)
[2024-08-08 09:25] LABS: Platelet Count 24 K/mm3 (142-424)
== END 2024-08-08 09:30 | disposition home or self-care (01) ==
LOC: INF 08:55
PROVIDERS: PCP Family Medicine; Visit Provider Internal Medicine Medical Oncology
DX: C95.90 Leukemia, unspecified not having achieved remission (principal)
CPT/HCPCS: 36591; 80053; 85025; J1642

== ENCOUNTER 2024-08-11 08:56 | Outpatient (CLI) | payer MEDICARE, BC, SELFPAY ==
[2024-08-11 09:00] VITALS: BMI 21.4
[2024-08-11 09:18] LABS: Basophils % 0.4 % (0.1-2.0); Eosinophils # 0.1 Kmm3 (0.0-0.4); Eosinophils % 2.4 % (0.1-12.0); Hematocrit 22.3 % (37.0-47.0); Hemoglobin 7.6 g/dL (12.2-16.2); Lymphocytes # 1.2 K/mm3 (0.7-4.5); Mean Corpuscular HGB Conc 34.1 g/dL (31.8-35.4); Mean Corpuscular Hemoglobin 34.5 pg (27.0-31.2); Mean Corpuscular Volume 101.4 fl (81-99); Mean Platelet Volume 9.7 fl (7.4-10.4); Monocytes # 0.2 K/mm3 (0.1-1.0); Monocytes % 9.6 % (1.7-9.3); Neutrophils % 39.4 % (37.0-80.0); Nucleated Red Blood Cells # 0 10^3/uL; Nucleated Red Blood Cells % 0 %; Platelet Count 17 K/mm3 (142-424); Red Cell Distribution Width 24.2 % (11.5-17.5); Red Cell Distribution Width-SD 84.3 fL; White Blood Count 2.5 K/mm3 (4.8-10.8)
[2024-08-11] MEDS: SODIUM CHLORIDE 0.9% 10ML FLUSH SYRINGE 10 ML IV (09:20)
[2024-08-11 09:28] LABS: Alanine Aminotransferase 16 U/L (12-78); Albumin Level 3.4 g/dl (3.5-5.0); Albumin/Globulin Ratio 1.4 (1.1-1.8); Alkaline Phosphatase 43 U/L (38-126); Anion Gap 7.7 mEq/L (5-15); Aspartate Amino Transferase 35 U/L (14-36); Bilirubin,Total 0.5 mg/dl (0.2-1.3); Blood Urea Nitrogen 26 mg/dl (7-17); Calcium 9.4 mg/dl (8.4-10.2); Carbon Dioxide 25 mmol/L (22.0-30.0); Chloride 110 mmol/L (98-107); Creatinine Clearance Estimated 41 mL/min (50-200); Estimated Glomerular Filt Rate 49 ml/min (>60); GFR (African American) 59 ML/MIN (>60); Globulin 2.5 g/dL (1.3-3.2); Glucose 139 mg/dl (74-100); Potassium 3.7 mmoL/L (3.5-5.1); Sodium 139 mmol/L (136-145); Total Protein,Serum 5.9 g/dl (6.3-8.2)
== END 2024-08-11 09:25 | disposition home or self-care (01) ==
LOC: INF 08:58
PROVIDERS: PCP Family Medicine; Visit Provider Internal Medicine Medical Oncology
DX: D61.818 Other pancytopenia (principal)
CPT/HCPCS: 36591; 80053; 85025; J1642

== ENCOUNTER 2024-08-13 08:59 | Outpatient (CLI) | payer MEDICARE, BC, SELFPAY ==
[2024-08-13 09:09] VITALS: BMI 21.8
[2024-08-13 09:18] LABS: Basophils % 0.4 % (0.1-2.0); Eosinophils % 1.7 % (0.1-12.0); Hematocrit 22.6 % (37.0-47.0); Hemoglobin 7.7 g/dL (12.2-16.2); Lymphocytes % 40.6 % (10-50); Mean Corpuscular HGB Conc 34.1 g/dL (31.8-35.4); Mean Corpuscular Volume 102.7 fl (81-99); Monocytes # 0.3 K/mm3 (0.1-1.0); Monocytes % 11.3 % (1.7-9.3); Neutrophils # 1.1 K/mm3 (1.8-7.8); Neutrophils % 44.7 % (37.0-80.0); Nucleated Red Blood Cells # 0 10^3/uL; Nucleated Red Blood Cells % 0 %; Red Cell Distribution Width 24.3 % (11.5-17.5); Red Cell Distribution Width-SD 83.1 fL; White Blood Count 2.4 K/mm3 (4.8-10.8)
[2024-08-13 09:23] LABS: Albumin Level 3.6 g/dl (3.5-5.0); Chloride 109 mmol/L (98-107)
[2024-08-13 09:24] LABS: Potassium 3.7 mmoL/L (3.5-5.1); Sodium 137 mmol/L (136-145)
[2024-08-13 09:26] LABS: Alanine Aminotransferase 16 U/L (12-78); Albumin/Globulin Ratio 1.6 (1.1-1.8); Anion Gap 8.7 mEq/L (5-15); Aspartate Amino Transferase 32 U/L (14-36); Blood Urea Nitrogen 28 mg/dl (7-17); Carbon Dioxide 23 mmol/L (22.0-30.0); Creatinine Clearance Estimated 38 mL/min (50-200); Estimated Glomerular Filt Rate 44 ml/min (>60); GFR (African American) 53 ML/MIN (>60); Globulin 2.2 g/dL (1.3-3.2); Total Protein,Serum 5.8 g/dl (6.3-8.2)
[2024-08-13 09:27] LABS: Alkaline Phosphatase 40 U/L (38-126); Bilirubin,Total 0.3 mg/dl (0.2-1.3); Calcium 9.8 mg/dl (8.4-10.2); Glucose 164 mg/dl (74-100)
[2024-08-13 09:29] LABS: Platelet Count 13 K/mm3 (142-424)
[2024-08-13] MEDS: SODIUM CHLORIDE 0.9% 10ML FLUSH SYRINGE 10 ML IV (10:28)
== END 2024-08-13 09:34 | disposition home or self-care (01) ==
LOC: INF 09:01
PROVIDERS: PCP Family Medicine; Visit Provider Internal Medicine Medical Oncology
DX: C92.00 Acute myeloblastic leukemia, not having achieved remission (principal)
CPT/HCPCS: 36591; 80053; 85025; J1642

== ENCOUNTER 2024-08-15 09:00 | Outpatient (CLI) | payer MEDICARE, BC, SELFPAY ==
[2024-08-15 09:09] VITALS: BMI 21.2
[2024-08-15 09:17] LABS: Basophils % 0.5 % (0.1-2.0); Eosinophils # 0.1 Kmm3 (0.0-0.4); Eosinophils % 2.9 % (0.1-12.0); Hematocrit 21.1 % (37.0-47.0); Hemoglobin 7.2 g/dL (12.2-16.2); Lymphocytes % 47.3 % (10-50); Mean Corpuscular HGB Conc 34.1 g/dL (31.8-35.4); Mean Corpuscular Volume 102.4 fl (81-99); Mean Platelet Volume 10.2 fl (7.4-10.4); Monocytes # 0.2 K/mm3 (0.1-1.0); Monocytes % 9.3 % (1.7-9.3); Neutrophils # 0.8 K/mm3 (1.8-7.8); Nucleated Red Blood Cells # 0 10^3/uL; Nucleated Red Blood Cells % 0 %; Red Blood Count 2.06 M/mm3 (4.20-5.40); Red Cell Distribution Width 24.9 % (11.5-17.5); White Blood Count 2.1 K/mm3 (4.8-10.8)
[2024-08-15 09:28] LABS: Alanine Aminotransferase 15 U/L (12-78); Albumin Level 3.2 g/dl (3.5-5.0); Albumin/Globulin Ratio 1.3 (1.1-1.8); Alkaline Phosphatase 41 U/L (38-126); Anion Gap 8.6 mEq/L (5-15); Aspartate Amino Transferase 32 U/L (14-36); Bilirubin,Total 0.4 mg/dl (0.2-1.3); Blood Urea Nitrogen 26 mg/dl (7-17); Calcium 9.7 mg/dl (8.4-10.2); Carbon Dioxide 22 mmol/L (22.0-30.0); Chloride 110 mmol/L (98-107); Creatinine Clearance Estimated 40 mL/min (50-200); Estimated Glomerular Filt Rate 49 ml/min (>60); GFR (African American) 59 ML/MIN (>60); Globulin 2.5 g/dL (1.3-3.2); Glucose 154 mg/dl (74-100); Platelet Count 12 K/mm3 (142-424); Potassium 3.6 mmoL/L (3.5-5.1); Sodium 137 mmol/L (136-145); Total Protein,Serum 5.7 g/dl (6.3-8.2)
[2024-08-15 09:29] LABS: MANUAL DIFFERENTIAL MANUAL DIFFERENTIAL (MANUAL DIFF)
[2024-08-15] MEDS: SODIUM CHLORIDE 0.9% 10ML FLUSH SYRINGE 10 ML IV (09:30)
[2024-08-15 09:53] LABS: Eosinophils % 1 % (0-3); Hypochromasia 1+; Lymphocytes % 39 % (10-50); Monocytes % 6 % (2-9); Neutrophils % 54 % (42-76); Ovalocytes 1+; Total Cells Counted 100
[2024-08-15 09:54] LABS: Anisocytosis 1+; Platelet Estimate Marked Decrease
== END 2024-08-15 09:35 | disposition home or self-care (01) ==
LOC: INF 09:03
PROVIDERS: PCP Family Medicine; Visit Provider Internal Medicine Medical Oncology
DX: C92.00 Acute myeloblastic leukemia, not having achieved remission (principal)
CPT/HCPCS: 36591; 80053; 85007; 85025; J1642

== ENCOUNTER 2024-08-18 08:55 | Outpatient (CLI) | payer MEDICARE, BC, SELFPAY ==
[2024-08-18 08:58] VITALS: BMI 20.7
[2024-08-18 09:19] LABS: Basophils % 0.4 % (0.1-2.0); Eosinophils # 0.1 Kmm3 (0.0-0.4); Hematocrit 21.1 % (37.0-47.0); Hemoglobin 7.1 g/dL (12.2-16.2); Lymphocytes # 1.2 K/mm3 (0.7-4.5); Lymphocytes % 44.3 % (10-50); Mean Corpuscular HGB Conc 33.6 g/dL (31.8-35.4); Mean Corpuscular Hemoglobin 35.1 pg (27.0-31.2); Mean Corpuscular Volume 104.5 fl (81-99); Mean Platelet Volume 10.1 fl (7.4-10.4); Monocytes # 0.2 K/mm3 (0.1-1.0); Monocytes % 7.7 % (1.7-9.3); Neutrophils # 1.2 K/mm3 (1.8-7.8); Neutrophils % 44.2 % (37.0-80.0); Nucleated Red Blood Cells # 0 10^3/uL; Nucleated Red Blood Cells % 0 %; Red Blood Count 2.02 M/mm3 (4.20-5.40); White Blood Count 2.7 K/mm3 (4.8-10.8)
[2024-08-18 09:26] LABS: Albumin Level 3.4 g/dl (3.5-5.0); Chloride 110 mmol/L (98-107); Potassium 3.8 mmoL/L (3.5-5.1); Sodium 136 mmol/L (136-145)
[2024-08-18 09:28] LABS: Blood Urea Nitrogen 27 mg/dl (7-17); Creatinine Clearance Estimated 37 mL/min (50-200); Estimated Glomerular Filt Rate 44 ml/min (>60); GFR (African American) 53 ML/MIN (>60)
[2024-08-18 09:29] LABS: Alanine Aminotransferase 14 U/L (12-78); Albumin/Globulin Ratio 1.4 (1.1-1.8); Alkaline Phosphatase 43 U/L (38-126); Anion Gap 8.8 mEq/L (5-15); Aspartate Amino Transferase 33 U/L (14-36); Bilirubin,Total 0.4 mg/dl (0.2-1.3); Calcium 9.4 mg/dl (8.4-10.2); Carbon Dioxide 21 mmol/L (22.0-30.0); Globulin 2.4 g/dL (1.3-3.2); Glucose 136 mg/dl (74-100); Total Protein,Serum 5.8 g/dl (6.3-8.2)
[2024-08-18 09:38] LABS: Platelet Count 12 K/mm3 (142-424)
[2024-08-18] MEDS: SODIUM CHLORIDE 0.9% 10ML FLUSH SYRINGE 10 ML IV (09:45)
== END 2024-08-18 09:45 | disposition home or self-care (01) ==
LOC: INF 08:57
PROVIDERS: PCP Family Medicine; Visit Provider Internal Medicine Medical Oncology
DX: C95.90 Leukemia, unspecified not having achieved remission (principal)
CPT/HCPCS: 36591; 80053; 85025; J1642

== ENCOUNTER 2024-08-20 08:57 | Outpatient (CLI) | payer MEDICARE, BC, SELFPAY ==
[2024-08-20] VITALS (9 sets, daily range): BP systolic 116–133; BP diastolic 40–64; PULSE 74–81; RESP 15–18; TEMP 36.6–36.9; O2SAT 100; BMI 21.8
[2024-08-20 09:14] LABS: Basophils % 0.4 % (0.1-2.0); Eosinophils # 0.1 Kmm3 (0.0-0.4); Eosinophils % 2.7 % (0.1-12.0); Immature Granulocytes # 0 10^3uL; Immature Granulocytes % 0 %; Lymphocytes # 1.3 K/mm3 (0.7-4.5); Mean Corpuscular Hemoglobin 35.8 pg (27.0-31.2); Mean Corpuscular Volume 105.3 fl (81-99); Mean Platelet Volume 10.4 fl (7.4-10.4); Monocytes # 0.2 K/mm3 (0.1-1.0); Monocytes % 6.9 % (1.7-9.3); Nucleated Red Blood Cells # 0 10^3/uL; Nucleated Red Blood Cells % 0 %; Red Blood Count 1.87 M/mm3 (4.20-5.40); White Blood Count 2.6 K/mm3 (4.8-10.8)
[2024-08-20 09:25] LABS: Alanine Aminotransferase 15 U/L (12-78); Albumin Level 3.4 g/dl (3.5-5.0); Albumin/Globulin Ratio 1.6 (1.1-1.8); Alkaline Phosphatase 42 U/L (38-126); Anion Gap 8.8 mEq/L (5-15); Aspartate Amino Transferase 33 U/L (14-36); Bilirubin,Total 0.4 mg/dl (0.2-1.3); Blood Urea Nitrogen 26 mg/dl (7-17); Calcium 9.3 mg/dl (8.4-10.2); Carbon Dioxide 22 mmol/L (22.0-30.0); Chloride 110 mmol/L (98-107); Creatinine Clearance Estimated 41 mL/min (50-200); Estimated Glomerular Filt Rate 49 ml/min (>60); GFR (African American) 59 ML/MIN (>60); Globulin 2.1 g/dL (1.3-3.2); Glucose 158 mg/dl (74-100); Potassium 3.8 mmoL/L (3.5-5.1); Sodium 137 mmol/L (136-145); Total Protein,Serum 5.5 g/dl (6.3-8.2)
[2024-08-20 09:33] LABS: Hemoglobin 6.7 g/dL (12.2-16.2)
[2024-08-20 09:34] LABS: Hematocrit 19.7 % (37.0-47.0); Platelet Count 11 K/mm3 (142-424)
[2024-08-20] MEDS: ACETAMINOPHEN 325MG TAB 650 MG PO (13:00)
[2024-08-20] MEDS: diphenhydrAMINE 25MG CAPSULE 25 MG PO (13:39)
[2024-08-20] MEDS: 0.9 % SODIUM CHLORIDE 250 ML 25 ML IV (13:40)
== END 2024-08-20 16:12 | disposition home or self-care (01) ==
LOC: INF 08:59
PROVIDERS: PCP Family Medicine; Visit Provider Internal Medicine Medical Oncology
DX: C92.00 Acute myeloblastic leukemia, not having achieved remission (principal)
CPT/HCPCS: 36430; 80053; 85025; 86850; J1642; P9016

== ENCOUNTER 2024-08-22 09:04 | Outpatient (CLI) | payer MEDICARE, BC, SELFPAY ==
[2024-08-22] VITALS (8 sets, daily range): BP systolic 109–137; BP diastolic 43–58; PULSE 71–83; RESP 18; TEMP 36.3–36.6; O2SAT 100; BMI 20.5
[2024-08-22 09:23] LABS: Basophils % 0.4 % (0.1-2.0); Eosinophils # 0.1 Kmm3 (0.0-0.4); Eosinophils % 2.5 % (0.1-12.0); Hematocrit 24.8 % (37.0-47.0); Hemoglobin 8.6 g/dL (12.2-16.2); Immature Granulocytes # 0 10^3uL; Immature Granulocytes % 0 %; Lymphocytes # 1.1 K/mm3 (0.7-4.5); Lymphocytes % 40.4 % (10-50); Mean Corpuscular HGB Conc 34.7 g/dL (31.8-35.4); Mean Corpuscular Hemoglobin 35.1 pg (27.0-31.2); Mean Corpuscular Volume 101.2 fl (81-99); Mean Platelet Volume 9.6 fl (7.4-10.4); Monocytes # 0.2 K/mm3 (0.1-1.0); Monocytes % 7.4 % (1.7-9.3); Neutrophils # 1.4 K/mm3 (1.8-7.8); Neutrophils % 49.3 % (37.0-80.0); Nucleated Red Blood Cells # 0 10^3/uL; Nucleated Red Blood Cells % 0 %; Red Blood Count 2.45 M/mm3 (4.20-5.40); Red Cell Distribution Width 23.9 % (11.5-17.5); Red Cell Distribution Width-SD 81.9 fL; White Blood Count 2.8 K/mm3 (4.8-10.8)
[2024-08-22 09:25] LABS: Platelet Count 9 K/mm3 (142-424)
[2024-08-22 09:29] LABS: Albumin Level 3.3 g/dl (3.5-5.0); Chloride 110 mmol/L (98-107); Potassium 3.8 mmoL/L (3.5-5.1); Sodium 135 mmol/L (136-145)
[2024-08-22 09:32] LABS: Alanine Aminotransferase 14 U/L (12-78); Albumin/Globulin Ratio 1.4 (1.1-1.8); Alkaline Phosphatase 45 U/L (38-126); Anion Gap 5.8 mEq/L (5-15); Aspartate Amino Transferase 32 U/L (14-36); Bilirubin,Total 0.4 mg/dl (0.2-1.3); Blood Urea Nitrogen 25 mg/dl (7-17); Calcium 9.1 mg/dl (8.4-10.2); Carbon Dioxide 23 mmol/L (22.0-30.0); Creatinine Clearance Estimated 43 mL/min (50-200); Estimated Glomerular Filt Rate 54 ml/min (>60); GFR (African American) 66 ML/MIN (>60); Globulin 2.3 g/dL (1.3-3.2); Glucose 133 mg/dl (74-100); Total Protein,Serum 5.6 g/dl (6.3-8.2)
[2024-08-22] MEDS: 0.9 % SODIUM CHLORIDE 250 ML 100 ML IV (12:45)
[2024-08-22] MEDS: SODIUM CHLORIDE 0.9% 10ML FLUSH SYRINGE 10 ML IV (13:40)
== END 2024-08-22 13:40 | disposition home or self-care (01) ==
LOC: INF 09:05
PROVIDERS: PCP Family Medicine; Visit Provider Internal Medicine Medical Oncology
DX: C92.00 Acute myeloblastic leukemia, not having achieved remission (principal)
CPT/HCPCS: 36430; 80053; 85025; J1642; P9034

== ENCOUNTER 2024-08-25 08:58 | Outpatient (CLI) | payer MEDICARE, BC, SELFPAY ==
[2024-08-25 09:02] VITALS: BMI 24.1
[2024-08-25 09:15] LABS: Basophils % 0.4 % (0.1-2.0); Eosinophils # 0.1 Kmm3 (0.0-0.4); Eosinophils % 2.5 % (0.1-12.0); Hematocrit 24.7 % (37.0-47.0); Hemoglobin 8.4 g/dL (12.2-16.2); Immature Granulocytes # 0.01 10^3uL; Immature Granulocytes % 0.4 %; Lymphocytes # 1.1 K/mm3 (0.7-4.5); Lymphocytes % 40.4 % (10-50); Mean Corpuscular Volume 102.9 fl (81-99); Mean Platelet Volume 9.1 fl (7.4-10.4); Monocytes # 0.2 K/mm3 (0.1-1.0); Monocytes % 7.8 % (1.7-9.3); Neutrophils # 1.4 K/mm3 (1.8-7.8); Neutrophils % 48.5 % (37.0-80.0); Nucleated Red Blood Cells # 0 10^3/uL; Nucleated Red Blood Cells % 0 %; Red Cell Distribution Width 23.8 % (11.5-17.5); White Blood Count 2.8 K/mm3 (4.8-10.8)
[2024-08-25 09:16] LABS: Platelet Count 31 K/mm3 (142-424)
[2024-08-25] MEDS: SODIUM CHLORIDE 0.9% 10ML FLUSH SYRINGE 10 ML IV (09:25)
[2024-08-25 09:26] LABS: Alanine Aminotransferase 15 U/L (12-78); Albumin Level 3.4 g/dl (3.5-5.0); Albumin/Globulin Ratio 1.5 (1.1-1.8); Alkaline Phosphatase 42 U/L (38-126); Anion Gap 6.8 mEq/L (5-15); Aspartate Amino Transferase 33 U/L (14-36); Bilirubin,Total 0.4 mg/dl (0.2-1.3); Blood Urea Nitrogen 24 mg/dl (7-17); Calcium 9.3 mg/dl (8.4-10.2); Carbon Dioxide 24 mmol/L (22.0-30.0); Chloride 110 mmol/L (98-107); Creatinine Clearance Estimated 52 mL/min (50-200); Estimated Glomerular Filt Rate 54 ml/min (>60); GFR (African American) 66 ML/MIN (>60); Globulin 2.3 g/dL (1.3-3.2); Glucose 132 mg/dl (74-100); Potassium 3.8 mmoL/L (3.5-5.1); Sodium 137 mmol/L (136-145); Total Protein,Serum 5.7 g/dl (6.3-8.2)
== END 2024-08-25 09:28 | disposition home or self-care (01) ==
LOC: INF 09:00
PROVIDERS: PCP Family Medicine; Visit Provider Internal Medicine Medical Oncology
DX: D61.818 Other pancytopenia (principal)
CPT/HCPCS: 36591; 80053; 85025; J1642

== ENCOUNTER 2024-08-27 09:00 | Outpatient (CLI) | payer MEDICARE, BC, SELFPAY ==
[2024-08-27 09:08] VITALS: BMI 21.4
[2024-08-27 09:17] LABS: Basophils % 0.5 % (0.1-2.0); Eosinophils % 1.8 % (0.1-12.0); Hematocrit 23.6 % (37.0-47.0); Hemoglobin 8.1 g/dL (12.2-16.2); Immature Granulocytes # 0 10^3uL; Immature Granulocytes % 0 %; Lymphocytes # 1.1 K/mm3 (0.7-4.5); Mean Corpuscular HGB Conc 34.3 g/dL (31.8-35.4); Mean Corpuscular Hemoglobin 35.5 pg (27.0-31.2); Mean Corpuscular Volume 103.5 fl (81-99); Mean Platelet Volume 9.2 fl (7.4-10.4); Monocytes # 0.2 K/mm3 (0.1-1.0); Monocytes % 6.8 % (1.7-9.3); Neutrophils # 0.9 K/mm3 (1.8-7.8); Neutrophils % 40.9 % (37.0-80.0); Nucleated Red Blood Cells # 0 10^3/uL; Nucleated Red Blood Cells % 0 %; Red Blood Count 2.28 M/mm3 (4.20-5.40); Red Cell Distribution Width 23.6 % (11.5-17.5); Red Cell Distribution Width-SD 83.5 fL; White Blood Count 2.2 K/mm3 (4.8-10.8)
[2024-08-27 09:18] LABS: Platelet Count 21 K/mm3 (142-424)
[2024-08-27 09:19] LABS: MANUAL DIFFERENTIAL MANUAL DIFFERENTIAL (MANUAL DIFF)
[2024-08-27 09:24] LABS: Alanine Aminotransferase 14 U/L (12-78); Albumin Level 3.5 g/dl (3.5-5.0); Albumin/Globulin Ratio 1.7 (1.1-1.8); Alkaline Phosphatase 45 U/L (38-126); Anion Gap 6.9 mEq/L (5-15); Aspartate Amino Transferase 33 U/L (14-36); Bilirubin,Total 0.5 mg/dl (0.2-1.3); Blood Urea Nitrogen 25 mg/dl (7-17); Calcium 9.3 mg/dl (8.4-10.2); Carbon Dioxide 23 mmol/L (22.0-30.0); Chloride 110 mmol/L (98-107); Creatinine Clearance Estimated 37 mL/min (50-200); Estimated Glomerular Filt Rate 44 ml/min (>60); GFR (African American) 53 ML/MIN (>60); Globulin 2.1 g/dL (1.3-3.2); Glucose 125 mg/dl (74-100); Potassium 3.9 mmoL/L (3.5-5.1); Sodium 136 mmol/L (136-145); Total Protein,Serum 5.6 g/dl (6.3-8.2)
[2024-08-27 09:38] LABS: Eosinophils % 1 % (0-3); Lymphocytes % 42 % (10-50); Monocytes % 5 % (2-9); Neutrophils % 50 % (42-76); Platelet Estimate Marked Decrease; Rouleaux 1+; Total Cells Counted 100
[2024-08-27 09:39] LABS: Anisocytosis 1+; Hypochromasia 2+; Macrocytosis 1+
== END 2024-08-27 09:20 | disposition home or self-care (01) ==
LOC: INF 09:02
PROVIDERS: PCP Family Medicine; Visit Provider Internal Medicine Medical Oncology
DX: C92.00 Acute myeloblastic leukemia, not having achieved remission (principal)
CPT/HCPCS: 36591; 80053; 85007; 85025; J1642

== ENCOUNTER 2024-08-29 08:59 | Outpatient (CLI) | payer MEDICARE, BC, SELFPAY ==
[2024-08-29 09:02] VITALS: BMI 21.4
[2024-08-29 09:20] LABS: Basophils % 0.4 % (0.1-2.0); Eosinophils % 1.6 % (0.1-12.0); Hematocrit 23.8 % (37.0-47.0); Immature Granulocytes # 0 10^3uL; Immature Granulocytes % 0 %; Lymphocytes % 41.8 % (10-50); Mean Corpuscular HGB Conc 33.6 g/dL (31.8-35.4); Mean Corpuscular Hemoglobin 35.2 pg (27.0-31.2); Mean Corpuscular Volume 104.8 fl (81-99); Mean Platelet Volume 11.2 fl (7.4-10.4); Monocytes # 0.2 K/mm3 (0.1-1.0); Monocytes % 7.6 % (1.7-9.3); Neutrophils # 1.2 K/mm3 (1.8-7.8); Neutrophils % 48.6 % (37.0-80.0); Nucleated Red Blood Cells # 0 10^3/uL; Nucleated Red Blood Cells % 0 %; Red Blood Count 2.27 M/mm3 (4.20-5.40); Red Cell Distribution Width 23.3 % (11.5-17.5); Red Cell Distribution Width-SD 85.3 fL; White Blood Count 2.5 K/mm3 (4.8-10.8)
[2024-08-29 09:22] LABS: Platelet Count 16 K/mm3 (142-424)
[2024-08-29 09:42] LABS: Albumin Level 3.4 g/dl (3.5-5.0); Chloride 108 mmol/L (98-107); Potassium 3.9 mmoL/L (3.5-5.1); Sodium 136 mmol/L (136-145)
[2024-08-29 09:45] LABS: Alanine Aminotransferase 15 U/L (12-78); Albumin/Globulin Ratio 1.5 (1.1-1.8); Alkaline Phosphatase 47 U/L (38-126); Anion Gap 7.9 mEq/L (5-15); Aspartate Amino Transferase 34 U/L (14-36); Bilirubin,Total 0.3 mg/dl (0.2-1.3); Blood Urea Nitrogen 27 mg/dl (7-17); Carbon Dioxide 24 mmol/L (22.0-30.0); Creatinine Clearance Estimated 37 mL/min (50-200); Estimated Glomerular Filt Rate 44 ml/min (>60); GFR (African American) 53 ML/MIN (>60); Globulin 2.3 g/dL (1.3-3.2); Total Protein,Serum 5.7 g/dl (6.3-8.2)
[2024-08-29 09:46] LABS: Calcium 9.5 mg/dl (8.4-10.2); Glucose 156 mg/dl (74-100)
== END 2024-08-29 09:15 | disposition home or self-care (01) ==
LOC: INF 09:00
PROVIDERS: PCP Family Medicine; Visit Provider Internal Medicine Medical Oncology
DX: D61.818 Other pancytopenia (principal)
CPT/HCPCS: 36591; 80053; 85025; J1642

== ENCOUNTER 2024-09-01 09:01 | Outpatient (CLI) | payer MEDICARE, BC, SELFPAY ==
[2024-09-01 09:21] VITALS: BMI 20.7
[2024-09-01 09:32] LABS: Albumin Level 3.5 g/dl (3.5-5.0); Chloride 109 mmol/L (98-107); Potassium 3.9 mmoL/L (3.5-5.1); Sodium 136 mmol/L (136-145)
[2024-09-01 09:34] LABS: Basophils % 0.4 % (0.1-2.0); Eosinophils # 0.1 Kmm3 (0.0-0.4); Eosinophils % 2.5 % (0.1-12.0); Immature Granulocytes # 0.01 10^3uL; Immature Granulocytes % 0.4 %; Lymphocytes # 1.3 K/mm3 (0.7-4.5); Lymphocytes % 47.7 % (10-50); Mean Corpuscular HGB Conc 33.9 g/dL (31.8-35.4); Mean Corpuscular Hemoglobin 35.7 pg (27.0-31.2); Mean Corpuscular Volume 105.4 fl (81-99); Mean Platelet Volume 9.2 fl (7.4-10.4); Monocytes # 0.2 K/mm3 (0.1-1.0); Monocytes % 7.5 % (1.7-9.3); Neutrophils # 1.2 K/mm3 (1.8-7.8); Neutrophils % 41.5 % (37.0-80.0); Nucleated Red Blood Cells # 0 10^3/uL; Nucleated Red Blood Cells % 0 %; White Blood Count 2.8 K/mm3 (4.8-10.8)
[2024-09-01 09:35] LABS: Alanine Aminotransferase 17 U/L (12-78); Albumin/Globulin Ratio 1.6 (1.1-1.8); Alkaline Phosphatase 45 U/L (38-126); Anion Gap 6.9 mEq/L (5-15); Aspartate Amino Transferase 42 U/L (14-36); Bilirubin,Total 0.3 mg/dl (0.2-1.3); Blood Urea Nitrogen 27 mg/dl (7-17); Carbon Dioxide 24 mmol/L (22.0-30.0); Creatinine Clearance Estimated 37 mL/min (50-200); Estimated Glomerular Filt Rate 44 ml/min (>60); GFR (African American) 53 ML/MIN (>60); Globulin 2.2 g/dL (1.3-3.2); Total Protein,Serum 5.7 g/dl (6.3-8.2)
[2024-09-01 09:36] LABS: Calcium 9.7 mg/dl (8.4-10.2); Glucose 139 mg/dl (74-100)
[2024-09-01] MEDS: SODIUM CHLORIDE 0.9% 10ML FLUSH SYRINGE 10 ML IV (09:45)
[2024-09-01 09:47] LABS: Hematocrit 23.6 % (37.0-47.0)
--- NOTE | 2024-09-01 13:54 | PC.NURSE ---
0941- Sparkle Winkler from lab called critical lab resutls of plt 14 to AKBAR Hernandez. pt name, and lab results verified and read back. pt has standing orders in place for blood replacement products and does not meet requirements today. labs faxed to MD office.
[2024-09-01 14:08] LABS: Platelet Count 14 K/mm3 (142-424)
[2024-09-01 14:11] LABS: Red Blood Count 2.24 M/mm3 (4.20-5.40)
== END 2024-09-01 09:50 | disposition home or self-care (01) ==
LOC: INF 09:02
PROVIDERS: PCP Family Medicine; Visit Provider Internal Medicine Medical Oncology
DX: C95.90 Leukemia, unspecified not having achieved remission (principal)
CPT/HCPCS: 36591; 80053; 85025; J1642

== ENCOUNTER 2024-09-03 08:56 | Outpatient (CLI) | payer MEDICARE, BC, SELFPAY ==
[2024-09-03 08:58] VITALS: BMI 21.8
[2024-09-03] MEDS: SODIUM CHLORIDE 0.9% 10ML FLUSH SYRINGE 10 ML IV (09:10)
[2024-09-03 09:38] LABS: Basophils % 0.4 % (0.1-2.0); Eosinophils # 0.1 Kmm3 (0.0-0.4); Eosinophils % 1.9 % (0.1-12.0); Hematocrit 23.6 % (37.0-47.0); Hemoglobin 8.1 g/dL (12.2-16.2); Immature Granulocytes # 0.01 10^3uL; Immature Granulocytes % 0.4 %; Lymphocytes # 1.2 K/mm3 (0.7-4.5); Lymphocytes % 45.1 % (10-50); Mean Corpuscular HGB Conc 34.3 g/dL (31.8-35.4); Mean Corpuscular Hemoglobin 36.5 pg (27.0-31.2); Mean Corpuscular Volume 106.3 fl (81-99); Mean Platelet Volume 10.4 fl (7.4-10.4); Monocytes # 0.2 K/mm3 (0.1-1.0); Monocytes % 6.4 % (1.7-9.3); Neutrophils # 1.2 K/mm3 (1.8-7.8); Neutrophils % 45.8 % (37.0-80.0); Nucleated Red Blood Cells # 0 10^3/uL; Nucleated Red Blood Cells % 0 %; Red Blood Count 2.22 M/mm3 (4.20-5.40); White Blood Count 2.7 K/mm3 (4.8-10.8)
[2024-09-03 09:42] LABS: Platelet Count 14 K/mm3 (142-424)
[2024-09-03 09:43] LABS: Alanine Aminotransferase 18 U/L (12-78); Albumin Level 3.5 g/dl (3.5-5.0); Albumin/Globulin Ratio 1.7 (1.1-1.8); Alkaline Phosphatase 44 U/L (38-126); Anion Gap 7.8 mEq/L (5-15); Aspartate Amino Transferase 42 U/L (14-36); Bilirubin,Total 0.4 mg/dl (0.2-1.3); Blood Urea Nitrogen 20 mg/dl (7-17); Calcium 9.3 mg/dl (8.4-10.2); Carbon Dioxide 24 mmol/L (22.0-30.0); Chloride 109 mmol/L (98-107); Creatinine Clearance Estimated 46 mL/min (50-200); Estimated Glomerular Filt Rate 54 ml/min (>60); GFR (African American) 66 ML/MIN (>60); Globulin 2.1 g/dL (1.3-3.2); Glucose 151 mg/dl (74-100); Potassium 3.8 mmoL/L (3.5-5.1); Sodium 137 mmol/L (136-145); Total Protein,Serum 5.6 g/dl (6.3-8.2)
== END 2024-09-03 09:50 | disposition home or self-care (01) ==
LOC: INF 08:57
PROVIDERS: PCP Family Medicine; Visit Provider Internal Medicine Medical Oncology
DX: C92.00 Acute myeloblastic leukemia, not having achieved remission (principal)
CPT/HCPCS: 36591; 80053; 85025; J1642

== ENCOUNTER 2024-09-05 09:03 | Outpatient (CLI) | payer MEDICARE, BC, SELFPAY ==
[2024-09-05 09:22] LABS: Basophils % 0.4 % (0.1-2.0); Eosinophils # 0.1 Kmm3 (0.0-0.4); Hematocrit 21.4 % (37.0-47.0); Hemoglobin 7.4 g/dL (12.2-16.2); Immature Granulocytes # 0.01 10^3uL; Immature Granulocytes % 0.4 %; Lymphocytes # 1.1 K/mm3 (0.7-4.5); Lymphocytes % 44.7 % (10-50); Mean Corpuscular HGB Conc 34.6 g/dL (31.8-35.4); Mean Corpuscular Hemoglobin 36.6 pg (27.0-31.2); Mean Corpuscular Volume 105.9 fl (81-99); Mean Platelet Volume 14.6 fl (7.4-10.4); Monocytes # 0.2 K/mm3 (0.1-1.0); Monocytes % 6.7 % (1.7-9.3); Neutrophils # 1.2 K/mm3 (1.8-7.8); Neutrophils % 45.8 % (37.0-80.0); Nucleated Red Blood Cells # 0 10^3/uL; Nucleated Red Blood Cells % 0 %; Platelet Count 12 K/mm3 (142-424); Red Blood Count 2.02 M/mm3 (4.20-5.40); White Blood Count 2.5 K/mm3 (4.8-10.8)
[2024-09-05] MEDS: SODIUM CHLORIDE 0.9% 10ML FLUSH SYRINGE 10 ML IV (09:25)
[2024-09-05 09:32] LABS: Alanine Aminotransferase 19 U/L (12-78); Albumin Level 3.3 g/dl (3.5-5.0); Albumin/Globulin Ratio 1.7 (1.1-1.8); Alkaline Phosphatase 39 U/L (38-126); Anion Gap 8.6 mEq/L (5-15); Aspartate Amino Transferase 43 U/L (14-36); Bilirubin,Total 0.4 mg/dl (0.2-1.3); Blood Urea Nitrogen 26 mg/dl (7-17); Calcium 9.1 mg/dl (8.4-10.2); Carbon Dioxide 25 mmol/L (22.0-30.0); Chloride 107 mmol/L (98-107); Estimated Glomerular Filt Rate 54 ml/min (>60); GFR (African American) 66 ML/MIN (>60); Glucose 143 mg/dl (74-100); Potassium 3.6 mmoL/L (3.5-5.1); Sodium 137 mmol/L (136-145); Total Protein,Serum 5.3 g/dl (6.3-8.2)
== END 2024-09-05 09:30 | disposition home or self-care (01) ==
LOC: INF 09:04
PROVIDERS: PCP Family Medicine; Visit Provider Internal Medicine Medical Oncology
DX: C92.00 Acute myeloblastic leukemia, not having achieved remission (principal)
CPT/HCPCS: 36591; 80053; 85025; J1642

== ENCOUNTER 2024-09-09 09:00 | Outpatient (CLI) | payer MEDICARE, BC, SELFPAY ==
[2024-09-09 09:16] VITALS: BMI 21.8
[2024-09-09 09:27] LABS: Basophils % 0.4 % (0.1-2.0); Eosinophils % 1.7 % (0.1-12.0); Hematocrit 21.5 % (37.0-47.0); Hemoglobin 7.3 g/dL (12.2-16.2); Immature Granulocytes # 0 10^3uL; Immature Granulocytes % 0 %; Lymphocytes % 42.6 % (10-50); Mean Corpuscular Hemoglobin 37.2 pg (27.0-31.2); Mean Corpuscular Volume 109.7 fl (81-99); Mean Platelet Volume 10.8 fl (7.4-10.4); Monocytes # 0.2 K/mm3 (0.1-1.0); Monocytes % 7.4 % (1.7-9.3); Neutrophils # 1.2 K/mm3 (1.8-7.8); Neutrophils % 47.9 % (37.0-80.0); Nucleated Red Blood Cells # 0 10^3/uL; Nucleated Red Blood Cells % 0 %; Red Blood Count 1.96 M/mm3 (4.20-5.40); White Blood Count 2.4 K/mm3 (4.8-10.8)
[2024-09-09 09:31] LABS: Platelet Count 11 K/mm3 (142-424)
[2024-09-09 09:34] LABS: Albumin Level 3.4 g/dl (3.5-5.0); Albumin/Globulin Ratio 1.5 (1.1-1.8); Alkaline Phosphatase 41 U/L (38-126); Anion Gap 8.5 mEq/L (5-15); Bilirubin,Total 0.4 mg/dl (0.2-1.3); Blood Urea Nitrogen 21 mg/dl (7-17); Calcium 9.4 mg/dl (8.4-10.2); Carbon Dioxide 26 mmol/L (22.0-30.0); Chloride 108 mmol/L (98-107); Creatinine Clearance Estimated 46 mL/min (50-200); Estimated Glomerular Filt Rate 54 ml/min (>60); GFR (African American) 66 ML/MIN (>60); Globulin 2.3 g/dL (1.3-3.2); Glucose 142 mg/dl (74-100); Potassium 3.5 mmoL/L (3.5-5.1); Sodium 139 mmol/L (136-145); Total Protein,Serum 5.7 g/dl (6.3-8.2)
[2024-09-09 09:35] LABS: Alanine Aminotransferase 17 U/L (12-78); Aspartate Amino Transferase 37 U/L (14-36)
[2024-09-09] MEDS: SODIUM CHLORIDE 0.9% 10ML FLUSH SYRINGE 10 ML IV (09:50)
--- NOTE | 2024-09-09 11:35 | PC.NURSE ---
0914 Patient here for labs. CBC/CMP obtained via port a cath without problems. Awaiting results for any pending treatment.
== END 2024-09-09 09:55 | disposition home or self-care (01) ==
LOC: INF 09:01
PROVIDERS: PCP Family Medicine; Visit Provider Internal Medicine Medical Oncology
DX: C92.00 Acute myeloblastic leukemia, not having achieved remission (principal)
CPT/HCPCS: 36591; 80053; 85025; J1642

== ENCOUNTER 2024-09-12 09:04 | Outpatient (CLI) | payer MEDICARE, BC, SELFPAY ==
[2024-09-12 09:08] VITALS: BMI 20.5
[2024-09-12 09:26] LABS: Basophils % 0.4 % (0.1-2.0); Eosinophils % 1.1 % (0.1-12.0); Hematocrit 21.7 % (37.0-47.0); Hemoglobin 7.4 g/dL (12.2-16.2); Immature Granulocytes # 0 10^3uL; Immature Granulocytes % 0 %; Lymphocytes # 1.1 K/mm3 (0.7-4.5); Lymphocytes % 40.4 % (10-50); Mean Corpuscular HGB Conc 34.1 g/dL (31.8-35.4); Mean Corpuscular Hemoglobin 37.8 pg (27.0-31.2); Mean Corpuscular Volume 110.7 fl (81-99); Monocytes # 0.2 K/mm3 (0.1-1.0); Monocytes % 7.9 % (1.7-9.3); Neutrophils # 1.3 K/mm3 (1.8-7.8); Neutrophils % 50.2 % (37.0-80.0); Nucleated Red Blood Cells # 0 10^3/uL; Nucleated Red Blood Cells % 0 %; Red Blood Count 1.96 M/mm3 (4.20-5.40); White Blood Count 2.7 K/mm3 (4.8-10.8)
[2024-09-12 09:28] LABS: Platelet Count 12 K/mm3 (142-424)
[2024-09-12] MEDS: SODIUM CHLORIDE 0.9% 10ML FLUSH SYRINGE 10 ML IV (09:29)
[2024-09-12 09:35] LABS: Alanine Aminotransferase 17 U/L (12-78); Albumin Level 3.4 g/dl (3.5-5.0); Albumin/Globulin Ratio 1.6 (1.1-1.8); Alkaline Phosphatase 40 U/L (38-126); Anion Gap 9.8 mEq/L (5-15); Aspartate Amino Transferase 41 U/L (14-36); Bilirubin,Total 0.4 mg/dl (0.2-1.3); Blood Urea Nitrogen 18 mg/dl (7-17); Calcium 9.1 mg/dl (8.4-10.2); Carbon Dioxide 24 mmol/L (22.0-30.0); Chloride 108 mmol/L (98-107); Creatinine Clearance Estimated 43 mL/min (50-200); Estimated Glomerular Filt Rate 61 ml/min (>60); GFR (African American) 74 ML/MIN (>60); Globulin 2.1 g/dL (1.3-3.2); Glucose 151 mg/dl (74-100); Potassium 3.8 mmoL/L (3.5-5.1); Sodium 138 mmol/L (136-145); Total Protein,Serum 5.5 g/dl (6.3-8.2)
== END 2024-09-12 09:35 | disposition home or self-care (01) ==
LOC: INF 09:05
PROVIDERS: PCP Family Medicine; Visit Provider Internal Medicine Medical Oncology
DX: C92.00 Acute myeloblastic leukemia, not having achieved remission (principal)
CPT/HCPCS: 36591; 80053; 85025; J1642

== ENCOUNTER 2024-09-15 08:55 | Outpatient (CLI) | payer MEDICARE, BC, SELFPAY ==
[2024-09-15 09:00] VITALS: BMI 21.2
[2024-09-15 09:23] LABS: Albumin Level 3.5 g/dl (3.5-5.0); Basophils % 0.4 % (0.1-2.0); Chloride 109 mmol/L (98-107); Eosinophils % 1.6 % (0.1-12.0); Hematocrit 21.2 % (37.0-47.0); Hemoglobin 7.2 g/dL (12.2-16.2); Immature Granulocytes # 0.01 10^3uL; Immature Granulocytes % 0.4 %; Lymphocytes # 1.1 K/mm3 (0.7-4.5); Lymphocytes % 43.8 % (10-50); Mean Corpuscular Hemoglobin 38.1 pg (27.0-31.2); Mean Corpuscular Volume 112.2 fl (81-99); Monocytes # 0.2 K/mm3 (0.1-1.0); Monocytes % 7.4 % (1.7-9.3); Neutrophils # 1.2 K/mm3 (1.8-7.8); Neutrophils % 46.4 % (37.0-80.0); Nucleated Red Blood Cells # 0 10^3/uL; Nucleated Red Blood Cells % 0 %; Potassium 3.7 mmoL/L (3.5-5.1); Red Blood Count 1.89 M/mm3 (4.20-5.40); Red Cell Distribution Width 21.9 % (11.5-17.5); Red Cell Distribution Width-SD 86.5 fL; Sodium 136 mmol/L (136-145); White Blood Count 2.6 K/mm3 (4.8-10.8)
[2024-09-15 09:24] LABS: Platelet Count 13 K/mm3 (142-424)
[2024-09-15 09:26] LABS: Alanine Aminotransferase 18 U/L (12-78); Albumin/Globulin Ratio 1.7 (1.1-1.8); Alkaline Phosphatase 44 U/L (38-126); Anion Gap 7.7 mEq/L (5-15); Aspartate Amino Transferase 35 U/L (14-36); Bilirubin,Total 0.3 mg/dl (0.2-1.3); Blood Urea Nitrogen 21 mg/dl (7-17); Calcium 9.3 mg/dl (8.4-10.2); Carbon Dioxide 23 mmol/L (22.0-30.0); Creatinine Clearance Estimated 44 mL/min (50-200); Estimated Glomerular Filt Rate 61 ml/min (>60); GFR (African American) 74 ML/MIN (>60); Globulin 2.1 g/dL (1.3-3.2); Glucose 172 mg/dl (74-100); Total Protein,Serum 5.6 g/dl (6.3-8.2)
[2024-09-15] MEDS: SODIUM CHLORIDE 0.9% 10ML FLUSH SYRINGE 10 ML IV (09:30)
== END 2024-09-15 09:32 | disposition home or self-care (01) ==
LOC: INF 08:57
PROVIDERS: PCP Family Medicine; Visit Provider Internal Medicine Medical Oncology
DX: C95.90 Leukemia, unspecified not having achieved remission (principal)
CPT/HCPCS: 36591; 80053; 85025; J1642

== ENCOUNTER 2024-09-17 08:59 | Outpatient (CLI) | payer MEDICARE, BC, SELFPAY ==
[2024-09-17 09:01] VITALS: BMI 20.5
[2024-09-17] MEDS: SODIUM CHLORIDE 0.9% 10ML FLUSH SYRINGE 10 ML IV (09:10)
[2024-09-17 09:21] LABS: Eosinophils % 1.2 % (0.1-12.0); Hemoglobin 7.1 g/dL (12.2-16.2); Immature Granulocytes # 0.01 10^3uL; Immature Granulocytes % 0.4 %; Lymphocytes # 1.1 K/mm3 (0.7-4.5); Lymphocytes % 42.7 % (10-50); Mean Corpuscular HGB Conc 34.3 g/dL (31.8-35.4); Mean Corpuscular Hemoglobin 38.8 pg (27.0-31.2); Mean Corpuscular Volume 113.1 fl (81-99); Mean Platelet Volume 9.3 fl (7.4-10.4); Monocytes # 0.2 K/mm3 (0.1-1.0); Monocytes % 6.9 % (1.7-9.3); Neutrophils # 1.2 K/mm3 (1.8-7.8); Neutrophils % 48.8 % (37.0-80.0); Nucleated Red Blood Cells # 0 10^3/uL; Nucleated Red Blood Cells % 0 %; Red Blood Count 1.83 M/mm3 (4.20-5.40); Red Cell Distribution Width-SD 86.6 fL; White Blood Count 2.5 K/mm3 (4.8-10.8)
[2024-09-17 09:25] LABS: Albumin Level 3.5 g/dl (3.5-5.0); Chloride 109 mmol/L (98-107)
[2024-09-17 09:26] LABS: Hematocrit 20.7 % (37.0-47.0); Platelet Count 14 K/mm3 (142-424); Potassium 3.6 mmoL/L (3.5-5.1); Sodium 138 mmol/L (136-145)
[2024-09-17 09:28] LABS: Alanine Aminotransferase 18 U/L (12-78); Anion Gap 9.6 mEq/L (5-15); Aspartate Amino Transferase 35 U/L (14-36); Blood Urea Nitrogen 21 mg/dl (7-17); Carbon Dioxide 23 mmol/L (22.0-30.0); Creatinine Clearance Estimated 39 mL/min (50-200); Estimated Glomerular Filt Rate 49 ml/min (>60); GFR (African American) 59 ML/MIN (>60)
[2024-09-17 09:29] LABS: Albumin/Globulin Ratio 1.7 (1.1-1.8); Alkaline Phosphatase 41 U/L (38-126); Bilirubin,Total 0.2 mg/dl (0.2-1.3); Calcium 9.3 mg/dl (8.4-10.2); Globulin 2.1 g/dL (1.3-3.2); Glucose 154 mg/dl (74-100); Total Protein,Serum 5.6 g/dl (6.3-8.2)
== END 2024-09-17 09:45 | disposition home or self-care (01) ==
LOC: INF 09:01
PROVIDERS: PCP Family Medicine; Visit Provider Internal Medicine Medical Oncology
DX: C92.00 Acute myeloblastic leukemia, not having achieved remission (principal)
CPT/HCPCS: 36591; 80053; 85025; J1642

== ENCOUNTER 2024-09-22 08:52 | Outpatient (CLI) | payer MEDICARE, BC, SELFPAY ==
--- OUTSIDE RECORDS SUMMARY | 2024-07-30 08:00 | XMS_ITS | Encounter Summary ---
Author Organization [facility] Address [address] [place] [address] Care Team Providers Care Manager Call Center Name Role Phone Jevon Vazquez MD Primary Care Provider [phone] Reason for Visit * Reason Comments Labs Only Encounter Details Date Type Department Care Team ([facility] Contact Info) Description 07/30/2024 8:00 AM EDT Clinical Support [facility] Hematology/BMT and Cellular Therapy Program [address] [phone] Pancytopenia Social History Tobacco Use Types Packs/Day [...] Upcoming Encounters Date Type Department Care Team ([facility] Contact Info) Description 09/30/2024 9:00 AM EDT Clinical Support [facility] Hematology/BMT and Cellular Therapy Program [address] [phone] 09/30/2024 9:30 AM EDT Office Visit [facility] Hematology/BMT and Cellular Therapy Program [address] [phone] Zonia Hoffman, [employer] TILE FLOOR LAYER 800 [facility] [address] [place] [phone] 09/30/2024 11:00 AM EDT Appointment [facility] [address] [place] [address] 10/01/2024 8:30 AM EDT Appointment [facility] [address] [place] [address] 10/02/2024 8:00 AM EDT Appointment [facility] [address] [place] [address] 10/03/2024 8:00 AM EDT Appointment [facility] [address] [place] [address] 10/04/2024 8:00 AM EDT Appointment [facility] Infusion Clinic [address] [place] [address] 10/05/2024 8:00 AM EDT Appointment [facility] Infusion Clinic [address] [place] [address] 10/06/2024 8:00 AM EDT Appointment [facility] Infusion Clinic [address] [place] [address] documented as of this encounter Procedures Procedure Name Priority Date/Time Associated Diagnosis Comments CBC WITH AUTO DIFFERENTIAL Routine 07/30/2024 8:14 AM EDT Pancytopenia COMPREHENSIVE METABOLIC PANEL, PLASMA Routine 07/30/2024 8:14 AM EDT Pancytopenia documented in this encounter Results * (ABNORMAL) Comprehensive Metabolic Panel, Plasma (07/30/2024 8:14 AM EDT) Glucose, Plasma 142(H) 74 - 99 mg/dL 07/30/2024 8:56 AM EDT [facility] BUN, Plasma 24(H) 8 - 23 mg/dL 07/30/2024 8:56 AM EDT [facility] Creatinine, Plasma 1.06 0.60 - 1.10 mg/dL 07/30/2024 8:56 AM EDT [facility] BUN/Creatinine Ratio 23 07/30/2024 8:56 AM EDT [facility] Sodium, Plasma 140 136 - 145 mmol/L 07/30/2024 8:56 AM EDT [facility] Potassium, Plasma 4.1 3.6 - 4.9 mmol/L 07/30/2024 8:56 AM EDT [facility] Chloride, Plasma 107 97 - 107 mmol/L 07/30/2024 8:56 AM EDT [facility] CO2, Plasma 23 22 - 29 mmol/L 07/30/2024 8:56 AM EDT [facility] Anion Gap 10 6 - 16 mmol/L 07/30/2024 8:56 AM EDT [facility] Total Calcium, Plasma 9.9 8.9 - 10.2 mg/dL 07/30/2024 8:56 AM EDT [facility] Total Protein 6.1(L) 6.3 - 7.9 g/dL 07/30/2024 8:56 AM EDT [facility] Albumin, Plasma 3.7 3.5 - 5.2 g/dL 07/30/2024 8:56 AM EDT [facility] AST, Plasma 30 10 - 35 U/L 07/30/2024 8:56 AM EDT [facility] ALT, Plasma 11 10 - 35 U/L 07/30/2024 8:56 AM EDT [facility] Alkaline Phosphatase, Plasma 35(L) 46 - 142 U/L 07/30/2024 8:56 AM EDT [facility] Total Bilirubin, Plasma 0.3 0.2 - 1.1 mg/dL 07/30/2024 8:56 AM EDT [facility] eGFRcr 55.6 mL/min/1.7 3m*2 07/30/2024 8:56 AM EDT [facility] Comment:Reported eGFRcr in m L/min/1.73m2 is based the CKD-EPI 2020 equation that does not use a race coefficient. Blood Venous blood specimen / Unknown (Port) Long-term Catheter / Unknown 07/30/2024 8:14 AM EDT 07/30/2024 8:27 AM EDT Zonia Hoffman APRN LAB BLOOD ORDERABLES Final Res ult [facility] [address] [place] [address] * (ABNORMAL) CBC and Differential (07/30/2024 8:14 AM EDT) WBC Count 2.68(L) 3.70 - 10.30 10*3/uL LAB HEMATOLOGY METHOD 07/30/2024 8:51 AM EDT [facility] RBC Count 2.24(L) 3.90 - 5.20 10*6/uL LAB HEMATOLOGY METHOD 07/30/2024 8:51 AM EDT [facility] HGB 7.2(L) 11.2 - 15.7 g/dL LAB HEMATOLOGY METHOD 07/30/2024 8:51 AM EDT [facility] HCT 21.3(L) 34.0 - 45.0 % LAB HEMATOLOGY METHOD 07/30/2024 8:51 AM EDT [facility] Platelet Count 15(LL) 155 - 369 10*3/uL LAB HEMATOLOGY METHOD 07/30/2024 8:51 AM EDT [facility] MCV 95 79 - 98 fL LAB HEMATOLOGY METHOD 07/30/2024 8:51 AM EDT [facility] MCH 32.1(H) 26.0 - 32.0 pg LAB HEMATOLOGY METHOD 07/30/2024 8:51 AM EDT [facility] MCHC 33.8 30.7 - 35.5 g/dL LAB HEMATOLOGY METHOD 07/30/2024 8:51 AM EDT [facility] RDW 23.2(H) 11.5 - 14.5 % LAB HEMATOLOGY METHOD 07/30/2024 8:51 AM EDT [facility] MPV 8.7(L) 8.8 - 12.5 fL [...] LAB HEMATOLOGY METHOD 07/30/2024 8:51 AM EDT [facility] Eosinophils Absolute 0.03 0.00 - 0.50 10*3/uL LAB HEMATOLOGY METHOD 07/30/2024 8:51 AM EDT [facility] Basophils Absolute 0.00 0.00 - 0.10 10*3/uL LAB HEMATOLOGY METHOD 07/30/2024 8:51 AM EDT [facility] Immature Granulocytes Absolute 0.01 0.00 - [...] ORDERABLES Final Res ult [facility] [address] [place] [address] documented in this encounter Visit Diagnoses Diagnosis Pancytopenia documented in this encounter Additional Health Concerns Assessment Noted Time A fall risk assessment has been complete d for the patient 07/30/2024 8:29 AM EDT A Body Mass Index follow-up plan has been documented for the patient 05/28/2024 1:52 PM EST documented as of this encounter Care Teams Manager Call Center Relationship Specialty Start Date End Date Jevon Vazquez MD [address] [place] [address] #1 #1 [place] [phone] PCP - General 03/23/22 documented as of this encounter
--- OUTSIDE RECORDS SUMMARY | 2024-07-30 08:30 | XMS_ITS | Encounter Summary ---
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 Name Role Phone Jevon Vazquez MD Primary Care Provider [phone] Reason for Visit * Reason Comments Acute Myeloid Leukemia Encounter Details Date Type Department Care Team ([facility] st Contact Info) Description 07/30/2024 8:30 AM EDT Office Visit [facility] Hematology/BMT and Cellular Therapy Program [address] [phone] Zonia Hoffman, CARPENTER'S HELPER [address] [facility] [address] [place] [address] Pancytopenia (Primary Dx) Social History Tobacco Use Types Packs/Day Years [...] on file documented as of this encounter Last Filed Vital Signs Vital Sign Reading Time Taken Comments Blood Pressure 130/66 07/30/2024 8:27 AM EDT Pulse 79 07/30/2024 8:27 AM EDT Temperature 36.5 C (97.7 F) 07/30/2024 8:27 AM EDT Respiratory Rate 16 07/30/2024 8:27 AM EDT Oxygen Saturation 98% 07/30/2024 8:27 AM EDT Inhaled Oxygen Concentration - - Weight 57.7 kg (127 lb 3.3 oz) 07/30/2024 8:27 A M EDT Height 162.6 cm (5' 4.02 ) 07/30/2024 8:27 AM ED T Body Mass Index 21.82 07/30/2024 8:27 AM EDT documented in this encounter Miscellaneous Notes * Progress Notes - Zonia Hoffman, [employer] HELPER - 07/30/2024 8:30 AM EDT HEMATOLOGY ONCOLOGY NOTE Patient ID: Ashly Hernández is a 73 y.o. female. Referring Physician: No referring provider defined for this encounter. Primary Care Provider: Jevon Vazquez MD Chief Complaint: Chief Complaint Patient presents with Acute Myeloid Leukemia Treatment Plan: Azacitidine Daily x 7 / Venetoclax Every 28 Days Subjective History of Present Illness: 73 y.o. female who presents for continued management of myelodysplastic syndrome/acute myeloid leukemia. Her history is as below: Current Outpatient Medications: amLODIPine (Norvasc) 5 MG tablet, Take 1 tablet (5 mg) by mouth daily., Disp: , Rfl: fenofibrate (Tricor) 145 MG tablet, Take 1 tablet (145 mg) by mouth daily., Disp: , Rfl: pioglitazone (Actos) 30 MG tablet, Take 1 tablet (30 mg) by mouth daily., Disp: , Rfl: potassium chloride CR (Klor-Con M20) 20 MEQ ER tablet, Take 1 tablet (20 mEq) by mouth 2 (two) times a day. Do not crush or chew., Disp: 6 tablet, Rfl: 0 prochlorperazine (Compazine) 10 MG tablet, Take 1 tablet (10 mg) by mouth every 6 (six) hours if needed for nausea or vomiting., Disp: 30 tablet, Rfl: 5 rosuvastatin (Crestor) 5 MG tablet, TAKE 1 TABLET BY MOUTH ONCE DAILY AT NIGHT, Disp: 30 tablet, Rfl: 2 acyclovir (Zovirax) 800 MG tablet, Take 1 tablet by mouth in the morning and 1 tablet before bedtime., Disp: 60 tablet, Rfl: 2 fluconazole (Diflucan) 200 MG tablet, Take 2 tablets by mouth daily., Disp: 60 tablet, Rfl: 1 levoFLOXacin (Levaquin) 500 MG tablet, Take 1 tablet by mouth daily., Disp: 30 tablet, Rfl: 2 lidocaine-prilocaine (Emla) 2.5-2.5 % cream, Please apply to port area 30-45 min prior to access (Patient not taking: Reported on 07/30/2024), Disp: 30 g, Rfl: 2 venetoclax (Venclexta) 100 MG tablet, Take 2 tablets (200 mg) by mouth 1 (one) time each day. Take on days 1 - 21 (7 days off) of a 28 day cycle. (Patient not taking: Reported on 07/30/2024), Disp: 42tablet, Rfl: 0 History: Oncology History Overview Note 09/2023- routine labs showed mild pancytopenia, with a WBC 2.3 k/??L, Hb 10.2 g/dL, and platelets of70 k/??L. 12/2023- seen by Dr. Manzano in [facility] for evaluation of anemia and lymphocytosis. B12/folate levels, iron studies, and hemolysis labs, were unremarkable. A peripheral smear reviewed by a pathologist showed up to 1% blast cells, and a flow cytometry test indicated a percentage of myeloblasts. 01/01/2024- CBC shows a WBC of 2.0 k/??L, hemoglobin of 8.0 /dL, and platelet count of 163 k/??L. The ANC is 0.3 k/??L, with 76% lymphocytes on the differential. Flow cytometry revaled 8% myeloblasts that expressed CD45 (dim), CD34, CD117, HLA-DR, CD33, CD13, CD38, and CD11c (dim) with partial CD7 ex pression. 01/11/2024- peripheral blood and bone marrow evaluation: Peripheral smear shows marked normocytic anemia with a dimorphic red cell population and 18% blasts. Bone marrow morphology: hypercellular marrow with multilineage dyspoiesis and increased blasts (7% bone marrow, 18% peripheral blood). Flow cytometry: decreased side scatter of granulocytes with 7-10% myeloblasts (positive for CD117, variable CD34, partial CD13, CD33, HLA-DR, partial dim CD7, moderate CD 38, and moderate to dim CD45). 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 Next generation sequencing: Abnormal: TP53 (c.814G>A; p.Yyc222Ljz) frequency 45%, DMNT3A (c.1522delC; p.[id number]) frequency 48%, RUNX1 (c.336_338delGCC; p.Bev337iwd) frequency 35% Azacitidine + Venetoclax Cycle 1: 02/05/24 (Gaston 70 mg PO D1-21, Aza 75 mg/m2 IV D1-7) 02/25/24 C1D21 Bone marrow biopsy: Hypercellular erythroid predominant maturing hematopoiesis, approx 2-3% blasts Flow: predominant T-Cells, no evidence of increased blasts, abnormal lymphoid populations. Karyotype: 44~45, X,-X,del(5)(q13q33), todd(7)ins?(7)(q11.2q11.2)t(7;12)(q11.2;q13), -12,todd(17)add(1 7)(p13.2)add(17)(q21),+mar[cp6]/44~45,X,-X,del(5)(q13q33),todd(7)t(7;12)(q11.2;q1 3),-12,todd(17)add(17)(p13.2)add(17)(q21),+mar[cp4]/46,XX[10] Cycle 2: 03/22/24 (Gaston 200 mg PO D1-21, Aza 75 mg/m2 IV D1-7) Cycle 3: 05/06/24 Delayed 2 weeks due to neutropenia 05/28/24 Bone Marrow Biopsy: Hypocellular, no increased blasts Flow: predominate T-lymphocytes, no evidence of increased blasts, abnormal lymphoid populations Karyotype: pending 06/04/24 Delayed 2 weeks due to neutropenia 06/18/24 Delayed 2 weeks due to thrombocytopenia 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) 01/21/2024 Initial Diagnosis 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) 02/05/2024 - Chemotherapy azaCITIDine (Vidaza) 130 mg in sodium chloride 0.9 % 50 mL chemo IVPB, 75 mg/m2 = 130 mg, Intravenous, Once, 2 of 24 cycles Administration: 130 mg (02/05/2024), 130 mg (02/06/2024), 130 mg (02/07/2024), 130 mg (02/08/2024),130 mg (02/09/2024), 130 mg (03/22/2024), 130 mg (03/23/2024), 130 mg (03/24/2024), 130 mg (03/25/2024), 130 mg (03/26/2024), 130 mg (03/27/2024), 130 mg (02/10/2024), 130 mg (02/11/2024), 130 mg (03/28/2024) Past Medical History: Diagnosis Date Degenerative disc disease, lumbar Essential hypertension Hyperlipidemia Leukemia (CMS/HCC) Pancytopenia Spinal stenosis Type 2 diabetes mellitus Past Surgical History: Procedure Laterality Date BACK SURGERY CHOLECYSTECTOMY COLONOSCOPY HYSTERECTOMY LAMINECTOMY LUMBAR FUSION L3-4 L4-5 OBLIQUE LUMBAR INTERBODY FUSION L3-4 L4-5 POSTERIOR FUSION performed by Ivan Bartholomew MD at [facility] PORTACATH PLACEMENT SKIN GRAFT Family History Problem Relation Name Age of Onset Heart Problem Mother Heart Problem Brother Social History Tobacco Use Smoking status: Never Passive exposure: Never Smokeless tobacco: Never Vaping Use Vaping status: Never Used Substance Use Topics Alcohol use: Never Drug use: Never Interval History: Ms. Ashly Hernández presents to clinic 07/30/2024 for pre-chemotherapy evaluation prior to planned Azacitidine and Venetoclax. She is overall feeing good. She has fatigue. She has decreased appetite, but is trying to work on eating better. She has been doing chores around the house. Review of Systems 14- point ROS is reviewed and negative except in HPI. Objective Physical Exam: Vitals: 07/30/24 0827 BP: 130/66 Pulse: 79 Resp: 16 Temp: 36.5 ??C (97.7 ??F) SpO2: 98% Physical Examination: General: appears stated age, no acute distress Skin: No rashes, no lesions. Head: normocephalic, atraumatic. Eyes: EOMI. Conjunctivae are pink and moist, non-erythematous. Sclera anicteric, noninjected. Lymph Nodes: No palpable anterior/posterior cervical chain, pre-auricular, submandibular, suboccipital, or supra/infraclavicular lymphadenopathy. Pulmonary: Breathing is non-labored. No cough. Lung sounds are CTA throughout bilaterally, no wheezes, rhonchi or crackles. Cardiovascular: regular heart rate and rhythm. No murmurs/rubs. Abdomen: Soft/non-tender/non-distended. Normal bowel sounds present throughout. No hepatomegaly, nosplenomegaly. No rebound tenderness. Extremities: No peripheral edema. No calf tenderness. Musculoskeletal: Normal range of motion. No joint swelling or erythema. Neurological: Alert and oriented x 3. Responds to verbal commands. Psychiatric: Appropriate mood and behavior. Good eye contact. Performance Status: Symptomatic; fully ambulatory 70, Cares for self; unable to carry on normal activity or to do active work (ECOG equivalent 1) Pain Scale: 0 Assessment/Plan Myelodysplastic syndrome/acute myeloid leukemia Ms. Hernández is a 73 y.o. female who presents for continued management of myelodysplastic syndrome (MDS)/acute myeloid leukemia (AML). In September 2023, routine labs revealed mild pancytopenia with a WBC of2.3 k/??L, hemoglobin of 10.2 g/dL, and platelets of 70 k/??L. In December 2023, she was evaluatedby Dr. Manzano for anemia and lymphocytosis, with unremarkable B12/folate levels, iron studies, and hemolysis labs. A peripheral smear indicated up to 1% blast cells, and flow cytometry showed the presence of myeloblasts. On 01/01/2024, her CBC revealed a WBC of 2.0 k/??L, hemoglobin of 8.0 g/dL, and platelets of 163 k/??L, with an ANC of 0.3 k/??L. Flow cytometry confirmed 8% aberrant myeloblasts, nicholson ggesting progression towards a high-grade myeloid malignancy. She underwent a repeat CBC, peripheral smear, and bone marrow biopsy on 01/11/24. Evaluation revealed a hypercellular marrow with multilineage dyspoiesis and increased blasts (7% in bone marrow, but 18% in peripheral blood). Dr. Mckinney discussed with Ms. Hernández the significance of her peripheral blood and bone marrow findings, which indicate the presence of myelodysplastic syndrome (MDS)/acute myeloid leukemia (AML) according to the new ICC classification. We are still awaiting crucial genetic and molecular information that will help classify the disease and guide us in determining her prognosis. Although myeloid malignancies in individuals of her age are generally considered incurable, they are potentially treatable with therapies aimed at managing the disease and improving quality of life. In December 2023, given the fact that the peripheral smear revealed up to 18% blasts, she is progressing towards AML, and we will manage her accordingly. We discussed that, given her age, treatment will involve lower-intensity therapies. Previously provided general expectations of induction chemotherapy, including risks, benefits, and alternatives. Specifically, we discussed prolonged cytopenias, increased risk of infections, need for blood transfusions, fatigue, anorexia, gastrointestinal toxicity (including mucositis and diarrhea), organ injury, and nephrotoxicity (including Tumor Lysis Syndrome). I addressed all of her questions. Current Treatment Plan History: Azacitidine + Venetoclax Cycle 1: 02/05/24 (Gaston 70 mg PO D1-21, Aza 75 mg/m2 IV D1-7) 02/25/24 C1D21 Bone marrow biopsy: Hypercellular erythroid predominant maturing hematopoiesis, approx 2-3% blasts Flow: predominant T-Cells, no evidence of increased blasts, abnormal lymphoid populations. Karyotype: 44~45, X,-X,del(5)(q13q33), todd(7)ins?(7)(q11.2q11.2)t(7;12)(q11.2;q13), -12,todd(17)add(1 7)(p13.2)add(17)(q21),+mar[cp6]/44~45,X,-X,del(5)(q13q33),todd(7)t(7;12)(q11.2;q1 3),-12,todd(17)add(17)(p13.2)add(17)(q21),+mar[cp4]/46,XX[10] Cycle 2: 03/22/24 (Gaston 200 mg PO D1-21, Aza 75 mg/m2 IV D1-7) Cycle 3: 05/06/24 Delayed 2 weeks due to neutropenia 05/28/24 Bone Marrow Biopsy: Hypocellular, no increased blasts Flow: predominate T-lymphocytes, no evidence of increased blasts, abnormal lymphoid populations Karyotype: 46,XX[20], normal female chromosome 06/04/24 Delayed 2 weeks due to neutropenia 06/18/24 Delayed 2 weeks due to thrombocytopenia Plan: - Delay Aza/Gaston C3D1 by 2 additional weeks due to continued thrombocytopenia. Per patient scheduling request, she will come back in 3 weeks. - Continue local lab checks MWF at [facility] Allogenic transplant planning. 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 However, given her older age > 70, she would benefit from a geriatric BMT program and will make referrals should she be interested. Expected pancytopenia related to chemotherapy/AML. Check CBC x 3 times/week at [facility] Labs reviewed today, Hgb 7.2 , platelets 15, no transfusions today. - Supportive transfusions with irradiated, leukocyte reduced, CMV safe blood products: transfuse 1 unit of pRBC for hemoglobin </= 7 transfuse 1 unit of platelets for platelet count </= 10,000 Immunosuppressed due to AML/chemotherapy. Continue prophylactic acyclovir, and levofloxacin, fluconazole Vascular access. S/p port placement. Routine care per protocol I spent 45 minutes examining and counseling the patient, reviewing previous charts, reviewing results, and documenting. RODDY Cristina [facility] HEMATOLOGY/BMT AND CELLULAR THERAPY PROGRAM [address] [facility] [phone] 40 minutes was spent on this encounter; including preparing to see the patient, which involved review/interpretation of diagnostics and reports; obtaining and/or reviewing separately obtained history; performing appropriate physical exam; ordering/scheduling medications, tests or procedures; communicating findings and counseling/educating the patient, family and/or caregiver; documentation in EMR; and care coordination. documented in this encounter Plan of Treatment Upcoming Encounters Date Type Department Care Team ([facility] st Contact Info) Description 09/30/2024 9:00 AM EDT Clinical Support [facility] Hematology/BMT and Cellular Therapy Program [address] [facility], [address] [place] [address] 09/30/2024 9:30 AM EDT Office Visit [facility] Hematology/BMT and Cellular Therapy Program [address], [address] [place] [address] Zonia Hoffman, [employer] HELPER [address] [facility] [address] [place] [address] 09/30/2024 11:00 AM EDT Appointment [facility] [address] [place] [address] 10/01/2024 8:30 AM EDT Appointment [facility] [address] [place] [address] 10/02/2024 8:00 AM EDT Appointment [facility] [address] [place] [address] 10/03/2024 8:00 AM EDT Appointment [facility] 1 [address] [place] [address] 10/04/2024 8:00 AM EDT Appointment [facility] [address] [place] [address] 10/05/2024 8:00 AM EDT Appointment [facility] Infusion Clinic [address] [place] [address] 10/06/2024 8:00 AM EDT Appointment [facility] Infusion Clinic [address] [place] [address] documented as of this encounter Results * (ABNORMAL) Comprehensive Metabolic Panel, Plasma (07/30/2024 8:14 AM EDT) [facility] Glucose, Plasma 142(H) 74 - 99 mg/dL 07/30/2024 8:56 AM EDT [facility] BUN, Plasma 24(H) 8 - 23 mg/dL 07/30/2024 8:56 AM EDT [facility] Creatinine, Plasma 1.06 0.60 - 1.10 mg/dL 07/30/2024 8:56 AM EDT [facility] BUN/Creatinine Ratio 23 07/30/2024 8:56 AM EDT [facility] Sodium, Plasma 140 136 - 145 mmol/L 07/30/2024 8:56 AM EDT [facility] Potassium, Plasma 4.1 3.6 - 4.9 mmol/L 07/30/2024 8:56 AM EDT [facility] Chloride, Plasma 107 97 - 107 mmol/L 07/30/2024 8:56 AM EDT [facility] CO2, Plasma 23 22 - 29 mmol/L 07/30/2024 8:56 AM EDT [facility] Anion Gap 10 6 - 16 mmol/L 07/30/2024 8:56 AM EDT [facility] Total Calcium, Plasma 9.9 8.9 - 10.2 mg/dL 07/30/2024 8:56 AM EDT [facility] Total Protein 6.1(L) 6.3 - 7.9 g/dL 07/30/2024 8:56 AM EDT [facility] Albumin, Plasma 3.7 3.5 - 5.2 g/dL 07/30/2024 8:56 AM EDT [facility] AST, Plasma 30 10 - 35 U/L 07/30/2024 8:56 AM EDT [facility] ALT, Plasma 11 10 - 35 U/L 07/30/2024 8:56 AM EDT [facility] Alkaline Phosphatase, Plasma 35(L) 46 - 142 U/L 07/30/2024 8:56 AM EDT [facility] Total Bilirubin, Plasma 0.3 0.2 - 1.1 mg/dL 07/30/2024 8:56 AM EDT [facility] eGFRcr 55.6 mL/min/1.7 3m*2 07/30/2024 8:56 AM EDT [facility] Comment:Reported eGFRcr in m L/min/1.73m2 is based the CKD-EPI 2020 equation that does not use a race coefficient. Blood Venous blood specimen / Unknown (Port) Long-term Catheter / Unknown 07/30/2024 8:14 AM EDT 07/30/2024 8:27 AM EDT us Zonia Hoffman APRN LAB BLOOD ORDERABLES Final Res ult [facility] [address] [place] [address] * (ABNORMAL) CBC and Differential (07/30/2024 8:14 AM EDT) WBC Count 2.68(L) 3.70 - 10.30 10*3/uL LAB HEMATOLOGY METHOD 07/30/2024 8:51 AM EDT [facility] RBC Count 2.24(L) 3.90 - 5.20 10*6/uL LAB HEMATOLOGY METHOD 07/30/2024 8:51 AM EDT [facility] HGB 7.2(L) 11.2 - 15.7 g/dL LAB HEMATOLOGY METHOD 07/30/2024 8:51 AM EDT [facility] HCT 21.3(L) 34.0 - 45.0 % LAB HEMATOLOGY METHOD 07/30/2024 8:51 AM EDT [facility] Platelet Count 15(LL) 155 - 369 10*3/uL LAB HEMATOLOGY METHOD 07/30/2024 8:51 AM EDT [facility] MCV 95 79 - 98 fL LAB HEMATOLOGY METHOD 07/30/2024 8:51 AM EDT [facility] MCH 32.1(H) 26.0 - 32.0 pg LAB HEMATOLOGY METHOD 07/30/2024 8:51 AM EDT [facility] MCHC 33.8 30.7 - 35.5 g/dL LAB HEMATOLOGY METHOD 07/30/2024 8:51 AM EDT [facility] RDW 23.2(H) 11.5 - 14.5 % LAB HEMATOLOGY METHOD 07/30/2024 8:51 AM EDT [facility] MPV 8.7(L) 8.8 - 12.5 fL LAB HEMATOLOGY METHOD 07/30/2024 8:51 AM EDT [facility] nRBC 0.0 <=0.0 per 100 WBCs LAB HEMATOLOGY METHOD 07/30/2024 8:51 AM EDT [facility] Differential Type Automated LAB HEMATOLOGY METHOD 07/30/2024 8:51 AM EDT [facility] Neutrophils % 48 % LAB HEMATOLOGY [...] LAB HEMATOLOGY METHOD 07/30/2024 8:51 AM EDT [facility] Neutrophils Absolute 1.25(L) 1.60 - 6.10 10*3/uL LAB HEMATOLOGY METHOD 07/30/2024 8:51 AM EDT [facility] Lymphocytes Absolute 1.11(L) 1.20 - 3.90 10*3/uL LAB HEMATOLOGY METHOD 07/30/2024 8:51 AM EDT [facility] Monocytes Absolute 0.28(L) 0.30 - 0.90 10*3/uL LAB HEMATOLOGY METHOD 07/30/2024 8:51 AM EDT [facility] Eosinophils Absolute 0.03 0.00 - 0.50 10*3/uL LAB HEMATOLOGY METHOD 07/30/2024 8:51 AM EDT [facility] Basophils Absolute 0.00 0.00 - 0.10 10*3/uL LAB HEMATOLOGY METHOD 07/30/2024 8:51 AM EDT [facility] Immature Granulocytes Absolute 0.01 0.00 - 0.06 10*3/uL LAB HEMATOLOGY METHOD 07/30/2024 8:51 AM EDT [facility] Blood Venous blood specimen / Unknown (Port) Long-term Catheter / Unknown 07/30/2024 8:14 AM EDT 07/30/2024 8:26 AM EDT Narrative [facility] - 07/30/2024 8:51 AM EDT Therapeutic decision making should be based on absolute values, rather than percentages. us Zonia Hoffman APRN LAB BLOOD ORDERABLES Final Res ult [facility] [address] [place] [address] documented in this encounter Visit Diagnoses Diagnosis Pancytopenia- Primary documented in this encounter Additional Health Concerns Assessment Noted Time A fall risk assessment has been complete d for the patient 07/30/2024 8:29 AM EDT A Body Mass Index follow-up plan has been documented for the patient 05/28/2024 1:52 PM EST documented as of this encounter Care Teams Light Rail Train Operator Relationship Specialty Start Date End Date Jevon Vazquez MD [address] [place] [address] #1 #1 JOSEP [place] [id number] PCP - General 03/23/22 documented as of this encounter
--- OUTSIDE RECORDS SUMMARY | 2024-09-19 07:30 | XMS_ITS | Encounter Summary ---
Author Organization [facility] Address [address] [place] [address] Care Team Providers Care Vineyard Worker Name Role Phone Jevon Vazquez MD Primary Care Provider [phone] Reason for Visit * Reason Comments Nurse Visit Encounter Details Date Type Department Care Team ([facility] [address] Contact Info) Description 09/19/2024 7:30 AM EDT Clinical Support [facility] Hematology/BMT and Cellular Therapy Program [address] [phone] Arrived Social History Tobacco Use Types Packs/Day Years [...] Upcoming Encounters Date Type Department Care Team ([facility] [address] Contact Info) Description 09/30/2024 9:00 AM EDT Clinical Support [facility] Hematology/BMT and Cellular Therapy Program [address] [phone] 09/30/2024 9:30 AM EDT Office Visit [facility] Hematology/BMT and Cellular Therapy Program [address] [phone] Zonia Hoffman, DISHWASHER 800 [facility] [address] [place] [address] 09/30/2024 11:00 AM EDT Appointment [facility] 1 [address] [place] [address] 10/01/2024 8:30 AM EDT Appointment [facility] 1 [address] [place] [address] 10/02/2024 8:00 AM EDT Appointment [facility] 1 [address] [place] [address] 10/03/2024 8:00 AM EDT Appointment [facility] 1 [address] [place] [address] 10/04/2024 8:00 AM EDT Appointment [facility] 1 [address] [place] [address] 10/05/2024 8:00 AM EDT Appointment [facility] 1 [address] [place] [address] 10/06/2024 8:00 AM EDT Appointment [facility] 1 [address] [place] [address] documented as of this encounter Visit Diagnoses Not on filedocumented in this encounter Additional Health Concerns Assessment Noted Time A fall risk assessment has been complete d for the patient 09/19/2024 8:38 AM EDT A Body Mass Index follow-up plan has been documented for the patient 05/28/2024 1:52 PM EST documented as of this encounter Care Teams Vineyard Worker Relationship Specialty Start Date End Date Jevon Vazquez MD [address] [place] [address] #1 #1 [place] [address] PCP - General 03/23/22 documented as of this encounter
--- OUTSIDE RECORDS SUMMARY | 2024-09-19 09:30 | XMS_ITS | Encounter Summary ---
Author Organization Healthcare Address [address] [place] [address] Care Team Providers Care Returns Clerk Name Role Phone Jevon Vazquez MD Primary Care Provider [phone] Reason for Visit * Reason Comments Follow-up Encounter Details Date Type Department Care Team (Latest Contact Info) Description 09/19/2024 9:30 AM EDT Clinical Support [facility] Cancer Acute Treatment Clinic [address] [place] [address] Acute myeloid leukemia not having achieved remission [...] Upcoming Encounters Date Type Department Care Team ([facility] st Contact Info) Description 09/30/2024 9:00 AM EDT Clinical Support [facility] Hematology/BMT and Cellular Therapy Program [address] [place] [address] 09/30/2024 9:30 AM EDT Office Visit [facility] Hematology/BMT and Cellular Therapy Program [address] [address] Zonia Hoffman, SUPERVISOR FORMING AND TEMPERING 800 [facility] [address] [place] [address] 09/30/2024 11:00 AM EDT Appointment [facility] 1 [address] [place] [address] 10/01/2024 8:30 AM EDT Appointment [facility] 1 [address] [place] [address] 10/02/2024 8:00 AM EDT Appointment [facility] 1 [address] [place] [address] 10/03/2024 8:00 AM EDT Appointment [facility] 1 [address] [place] [address] 10/04/2024 8:00 AM EDT Appointment [facility] Infusion Clinic 1 [address] [place] [address] 10/05/2024 8:00 AM EDT Appointment [facility] Infusion Clinic 1 [address] [place] [address] 10/06/2024 8:00 AM EDT Appointment [facility] Infusion Clinic 1 [address] [place] [address] documented as of this encounter Procedures Procedure Name Priority Date/Time Associated Diagnosis Comments PLATELET COUNT, BLOOD STAT 09/19/2024 10:04 AM EDT PREPARE PLATELETS Routine 09/19/2024 9:0 8 AM EDT documented in this encounter Results * (ABNORMAL) Platelet count (09/19/2024 10:04 AM EDT) Platelet Count 61(L) 155 - 369 10*3/uL LAB HEMATOLOGY METHOD 09/19/2024 10:19 AM EDT [facility] Blood Blood sample taken from central line / Unknown (Port) Long-term Catheter / Unknown 09/19/2024 10:04 AM EDT 09/19/2024 10:18 AM EDT us New Mckinney MD LAB BLOOD ORDERABLES Final Re sult [facility] 800 [place] [address] * Transfuse platelets, Irradiated (09/19/2024 10:02 AM EDT) us Lexi Ferraro APRN BLOOD TRANSFUSION ORDERABL ES Final Result * Prepare Leukocyte Reduced Platelets (09/19/2024 9:08 AM EDT) Product Code [id number] CH BLOO D BANK Dispense Status Transfused BLOOD BANK Blood Expiration Date [id number] BLOOD BANK Unit Number [id number] CH B LOOD BANK Product Blood Type 6200 BLOOD BANK Blood Type A+ BLOOD BANK us Provider Not In System BLOOD BANK PRODUCT ORD ERABLES Final Result BLOOD BANK 800 [place] [address], documented in this encounter Visit Diagnoses Diagnosis [...] documented as of this encounter Care Teams Returns Clerk Relationship Specialty Start Date End Date Jevon Vazquez MD [address] [place] [address] #1 [address]1 [place] [address] PCP - General 03/23/22 documented as of this encounter
--- OUTSIDE RECORDS SUMMARY | 2024-09-19 12:00 | XMS_ITS | Encounter Summary ---
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) Procedures Leukemia/Lymphoma - Immunophenotyping by Flow Cytometry New Mckinney MD 800 [facility] Cancer [address] [address] Phone: tel: fax: Referral ID Status Reason Start Date Expiration Date V isits Requested Visits Authorized [id number] Authorized 09/11/2024 03/13/2026 1 1 Encounter Details Date Type Department Care Team (Latest Contact Info) Description 09/19/2024 12:00 PM EDT Procedure Visit [facility] Hematology/BMT and Cellular Therapy Program [address] [address] Lexi Ferraro, RODDY 800 [facility] Cancer [address] [address] Acute myeloid leukemia not [...] to surronding structures. Alternatives discussed: Delayed treatment [place] protocol: Procedure explained and questions answered to [...] Upcoming Encounters Date Type Department Care Team ([facility] st Contact Info) Description 09/30/2024 9:00 AM EDT Clinical Support [facility] Hematology/BMT and Cellular Therapy Program [address] [address] 09/30/2024 9:30 AM EDT Office Visit [facility] Hematology/BMT and Cellular Therapy Program [address] [address] Zonia Hoffman APRN 800 [facility]tr [address] [place] [phone] 09/30/2024 11:00 AM EDT Appointment [facility] Infusion Clinic [address] [place] [address] 10/01/2024 8:30 AM EDT Appointment [facility] Infusion Clinic 1 [address] [place] [address] 10/02/2024 8:00 AM EDT Appointment [facility] Infusion Clinic [address] [place] [address] 10/03/2024 8:00 AM EDT Appointment [facility] Infusion Clinic [address] [place] [address] 10/04/2024 8:00 AM EDT Appointment [facility] Infusion Clinic [address] [place] [address] 10/05/2024 8:00 AM EDT Appointment [facility] Infusion Clinic [address] [place] [address] 10/06/2024 8:00 AM EDT Appointment [facility] Infusion Clinic [address] [place] [address] Pending Results Name Type Priority Associated Diagnoses Date/Time Bone marrow exam Pathology and Cytology Routine Acute myeloid leukemia not having achieved remission ([facility]/HCC) 09/19/2024 7:29 AM EDT Leukemia/Lymphoma - Immunophenotyping by Flow Cytometry Lab Routine Acute myeloid leukemia not having achieved remission ([facility]/HCC) 09/19/2024 7:29 AM EDT Myeloid Focused Panel, 50 gene Lab Routine Acute myeloid leukemia not having achieved remission ([facility]/HCC) 09/19/2024 7:29 AM EDT Cytogenetics Testing, Oncology Lab Routine Acute myeloid leukemia not having achieved remission ([facility]/HCC) 09/19/2024 7:29 AM EDT Chromosome Karyotype, Oncology Lab Routine Acute myeloid leukemia not having achieved remission ([facility]/HCC) 09/19/2024 7:29 AM EDT documented as of [...] to surronding structures. Alternatives discussed: Delayed treatment [place] protocol: Procedure explained and questions answered to [...] IN CLINIC/BEDSIDE ORDERABL ES Final Result * (ABNORMAL) CBC and differential (09/19/2024 7:29 AM EDT) WBC Count 2.70(L) 3.70 - 10.30 10*3/uL LAB HEMATOLOGY METHOD 09/19/2024 9:13 AM EDT [facility] RBC Count 1.86(L) 3.90 - 5.20 10*6/uL LAB HEMATOLOGY METHOD 09/19/2024 9:13 AM EDT [facility] HGB 7.1(L) 11.2 - 15.7 g/dL LAB HEMATOLOGY METHOD 09/19/2024 9:13 AM EDT [facility] HCT 21.5(L) 34.0 - 45.0 % LAB HEMATOLOGY METHOD 09/19/2024 9:13 AM EDT [facility] Platelet Count 14(LL) 155 - 369 10*3/uL LAB HEMATOLOGY METHOD 09/19/2024 9:13 AM EDT [facility] MCV 116(H) 79 - 98 fL LAB HEMATOLOGY METHOD 09/19/2024 9:13 AM EDT [facility] MCH 38.2(H) 26.0 - 32.0 pg LAB HEMATOLOGY METHOD 09/19/2024 9:13 AM EDT [facility] MCHC 33.0 30.7 - 35.5 g/dL LAB HEMATOLOGY METHOD 09/19/2024 9:13 AM EDT [facility] RDW 21.8(H) 11.5 - 14.5 % LAB HEMATOLOGY METHOD 09/19/2024 9:13 AM EDT [facility] MPV 13.5(H) 8.8 - 12.5 fL LAB HEMATOLOGY METHOD 09/19/2024 9:13 AM EDT [facility] nRBC 0.0 <=0.0 per 100 WBCs LAB HEMATOLOGY METHOD 09/19/2024 9:13 AM EDT [facility] Differential Type Automated LAB HEMATOLOGY METHOD 09/19/2024 9:13 AM EDT [facility] Neutrophils % 51 % LAB HEMATOLOGY METHOD 09/19/2024 9:13 AM EDT [facility] Lymphocytes % 41 % LAB HEMATOLOGY METHOD 09/19/2024 9:13 AM EDT [facility] Monocytes % 7 % LAB HEMATOLOGY METHOD 09/19/2024 9:13 AM EDT [facility] Eosinophils % 1 % LAB HEMATOLOGY METHOD 09/19/2024 9:13 AM EDT [facility] Basophils % 0 % LAB HEMATOLOGY METHOD 09/19/2024 9:13 AM EDT [facility] Immature Granulocytes % 0 % LAB HEMATOLOGY METHOD 09/19/2024 9:13 AM EDT [facility] Neutrophils Absolute 1.35(L) 1.60 - 6.10 10*3/uL LAB HEMATOLOGY METHOD 09/19/2024 9:13 AM EDT [facility] Lymphocytes Absolute 1.10(L) 1.20 - 3.90 10*3/uL LAB HEMATOLOGY METHOD 09/19/2024 9:13 AM EDT [facility] Monocytes Absolute 0.20(L) 0.30 - 0.90 10*3/uL LAB HEMATOLOGY METHOD 09/19/2024 9:13 AM EDT [facility] Eosinophils Absolute 0.03 0.00 - 0.50 10*3/uL LAB HEMATOLOGY METHOD 09/19/2024 9:13 AM EDT [facility] Basophils Absolute 0.01 0.00 - 0.10 10*3/uL LAB HEMATOLOGY METHOD 09/19/2024 9:13 AM EDT [facility] Immature Granulocytes Absolute 0.01 0.00 - 0.06 10*3/uL LAB HEMATOLOGY METHOD 09/19/2024 9:13 AM EDT [facility] Blood Blood sample taken from central line / Unknown (Port) Long-term Catheter / Unknown 09/19/2024 7:29 AM EDT 09/19/2024 8:08 AM EDT Narrative [facility] - 09/19/2024 9:13 AM EDT Therapeutic decision making should be based on absolute values, rather than percentages. 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
[2024-09-22 08:54] VITALS: BMI 21.8
--- OUTSIDE RECORDS SUMMARY | 2024-09-22 08:57 | XMS_ITS | Encounter Summary ---
Author Organization Healthcare Address [address] [place] [address] Care Team Providers Care Finisher Plate Name Role Phone Jevon Vazquez MD Primary Care Provider [phone] Encounter Details Date Type Department Care Team ([facility] Contact Info) Description 09/19/2024 Orders Only [facility] Hematology/BMT and Cellular Therapy Program [address] [phone] 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, RN [facility] H[facility]ATOLOGY PROGRAM CLINIC Social History Tobacco Use Types Packs/Day Years [...] Encounters Date Type Department Care Team ([facility] Contact Info) Description 09/30/2024 9:00 AM EDT Clinical Support [facility] Hematology/BMT and Cellular Therapy Program [address] [phone] 09/30/2024 9:30 AM EDT Office Visit [facility] Hematology/BMT and Cellular Therapy Program [address] [phone] Zonia Hoffman, SUPER[employer]OR [employer] 800 [facility] [address] [place] [phone] 09/30/2024 11:00 AM EDT Appointment [facility] [address] [place] [address] 10/01/2024 8:30 AM EDT Appointment [facility] 1 [address] [place] [address] 10/02/2024 8:00 AM EDT Appointment [facility] [address] [place] [address] 10/03/2024 8:00 AM EDT Appointment [facility] [address] [place] [address] 10/04/2024 8:00 AM EDT Appointment [facility] 1 [address] [place] [address] 10/05/2024 8:00 AM EDT Appointment [facility] [address] [place] [address] 10/06/2024 8:00 AM EDT Appointment [facility] [address] [place] [address] documented as of this encounter Visit Diagnoses Not on filedocumented in this encounter Additional Health Concerns Assessment Noted Time A fall risk assessment has been complete d for the patient 09/19/2024 8:38 AM EDT A Body Mass Index follow-up plan has been documented for the patient 05/28/2024 1:52 PM EST documented as of this encounter Care Teams Finisher Plate Relationship Specialty Start Date End Date Jevon Vazquez MD [address] [place] [address] #1 #1 Julien [place] [id number] PCP - General 03/23/22 documented as of this encounter
--- OUTSIDE RECORDS SUMMARY | 2024-09-22 08:57 | XMS_ITS | Encounter Summary ---
Author Organization [facility] Address [address] [place] [address] Care Team Providers Care Song And Dance Performer Name Role Phone Jevon Vazquez MD Primary Care Provider Encounter Details Date Type Department Care Team ([facility] Contact Info) Description 09/15/2024 Telephone [facility] CC Hematology/BMT and Cellular Therapy Program [address] [phone] Zonia Hoffman, SHOCK ABSORPTION FLOOR LAYER 800 [facility] [address] [place] [phone] Social History Tobacco Use Types Packs/Day Years [...] Upcoming Encounters Date Type Department Care Team ([facility] Contact Info) Description 09/30/2024 9:00 AM EDT Clinical Support P[facility] CC Hematology/BMT and Cellular Therapy Program [address] [place] [phone] 09/30/2024 9:30 AM EDT Office Visit [facility] CC Hematology/BMT and Cellular Therapy Program [address] [place] [phone] Zonia Hoffman, SHOCK ABSORPTION FLOOR LAYER 800 [place] [facility] [address] [place] [address] 09/30/2024 11:00 AM EDT Appointment [facility] [address] [place] [address] 10/01/2024 8:30 AM EDT Appointment [facility] 1 [address] [place] [address] 10/02/2024 8:00 AM EDT Appointment [facility] 1 [address] [place] [address] 10/03/2024 8:00 AM EDT Appointment [facility] 1 [address] [place] [address] 10/04/2024 8:00 AM EDT Appointment [facility] 1 [address] [place] [address] 10/05/2024 8:00 AM EDT Appointment [facility] 1 [address] [place] [address] 10/06/2024 8:00 AM EDT Appointment [facility] 1 [address] [place] [address] documented as of this encounter Visit Diagnoses Not on filedocumented in this encounter Additional Health Concerns Assessment Noted Time A fall risk assessment has been complete d for the patient 07/30/2024 8:29 AM EDT A Body Mass Index follow-up plan has been documented for the patient 05/28/2024 1:52 PM EST documented as of this encounter Care Teams Song And Dance Performer Relationship Specialty Start Date End Date Jevon Vazquez MD [address] [place] [address] #1 #1 [place] [address] PCP - General 03/23/22 documented as of this encounter
--- OUTSIDE RECORDS SUMMARY | 2024-09-22 08:57 | XMS_ITS | Encounter Summary ---
Author Organization [facility] Address [address] [place] [address] Care Team Providers Care Supply Person Name Role Phone Jevon Vazquez MD Primary Care Provider [phone] Reason for Visit * Reason Comments Med Refill Encounter Details Date Type Department Care Team ([facility] Contact Info) Description 01/30/2024 Refill [facility] CC Hematology/BMT and Cellular Therapy Program [address] [phone] New Mckinney MD 800 [facility] [address] [place] [phone] Social History Tobacco Use Types Packs/Day Years Used Date Smoking Tobacco: Never Smokeless Tobacco: Never Alcohol Use Standard [...] Upcoming Encounters Date Type Department Care Team ([facility] Contact Info) Description 09/30/2024 9:00 AM EDT Clinical Support [facility] CC Hematology/BMT and Cellular Therapy Program [address] [place] [address] 09/30/2024 9:30 AM EDT Office Visit [facility] CC Hematology/BMT and Cellular Therapy Program [address] [phone] Zonia Hoffman, SCHEDULE SUPERVISOR [address] [facility] [address] [place] [address] 09/30/2024 11:00 AM EDT Appointment [facility] 1 [address] [place] [address] 10/01/2024 8:30 AM EDT Appointment [facility] 1 [address] [place] [address] 10/02/2024 8:00 AM EDT Appointment [facility] 1 [address] [place] [address] 10/03/2024 8:00 AM EDT Appointment [facility] 1 [address] [place] [address] 10/04/2024 8:00 AM EDT Appointment [facility] 1 [address] [place] [address] 10/05/2024 8:00 AM EDT Appointment [facility] 1 [address] [place] [address] 10/06/2024 8:00 AM EDT Appointment [facility] 1 [address] [place] [address] documented as of this encounter Visit Diagnoses Not on filedocumented in this encounter Additional Health Concerns Assessment Noted Time A fall risk assessment has been complete d for the patient 01/11/2024 9:16 AM EDT A Body Mass Index follow-up plan has been documented for the patient 01/21/2024 6:16 AM EDT documented as of this encounter Care Teams Supply Person Relationship Specialty Start Date End Date Jevon Vazquez MD [address] [place] [address] #1 #1 [place] [id number] PCP - General 03/23/22 documented as of this encounter
--- OUTSIDE RECORDS SUMMARY | 2024-09-22 08:57 | XMS_ITS | Encounter Summary ---
Author Organization [facility] Address [address] [place] [address] Care Team Providers Care Manager Forensic Name Role Phone Jevon Vazquez MD Primary Care Provider [phone] Encounter Details Date Type Department Care Team ([facility] Contact Info) Description 09/19/2024 Telephone P[facility] CC Hematology/BMT and Cellular Therapy Program [address] [place] [address] Romana Richmond RN [facility] Social History Tobacco Use Types Packs/Day [...] on file documented as of this encounter Miscellaneous Notes * Progress Notes - Romana Richmond RN - 09/19/2024 8:45 AM EDT RN received critical lab result from Lab: PLT 14. Primary nurse will be notified. documented in this encounter Plan of Treatment Upcoming Encounters Date Type Department Care Team ([facility] Contact Info) Description 09/30/2024 9:00 AM EDT Clinical Support [facility] Hematology/BMT and Cellular Therapy Program [address] [place] [address] 09/30/2024 9:30 AM EDT Office Visit [facility] CC Hematology/BMT and Cellular Therapy Program 750 [facility] [address] [place] [address] Zonia Hoffman, SHOW JUMPING INSTRUCTOR [address] [place] [facility] [address] [place] [address] 09/30/2024 11:00 AM EDT Appointment [facility] 1 [address] [place] [address] 10/01/2024 8:30 AM EDT Appointment [facility] 1 [address] [place] [address] 10/02/2024 8:00 AM EDT Appointment [facility] 1 [address] [place] [address] 10/03/2024 8:00 AM EDT Appointment [facility] 1 [address] [place] [address] 10/04/2024 8:00 AM EDT Appointment [facility] 1 [address] [place] [address] 10/05/2024 8:00 AM EDT Appointment [facility] 1 [address] [place] [address] 10/06/2024 8:00 AM EDT Appointment [facility] 1 [address] [place] [address] documented as of this encounter Visit Diagnoses Not on filedocumented in this encounter Additional Health Concerns Assessment Noted Time A fall risk assessment has been complete d for the patient 09/19/2024 8:38 AM EDT A Body Mass Index follow-up plan has been documented for the patient 05/28/2024 1:52 PM EST documented as of this encounter Care Teams Manager Forensic Relationship Specialty Start Date End Date Jevon Vazquez MD [address] [place] [address] #1 #1 [place] [address] PCP - General 03/23/22 documented as of this encounter
--- OUTSIDE RECORDS SUMMARY | 2024-09-22 08:57 | XMS_ITS ---
Author Organization [facility] Address [address] [place] [address] Care Team Providers Care Huc Name Role Phone Jevon Vazquez MD Primary Care Provider Active Problems Problem Noted Date Diagnosed Date 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 Current Treatment and Therapy Plans (HEM) Outpatient Electrolyte Replacement Protocol* Plan Start Date:02/06/2024 Plan Provider:New Mckinney MD Linked Problems Acute myeloid leukemia not h aving achieved remission (CMS/HCC) Treatment Medications No medications scheduled. Azacitidine Daily x 7 / Venetoclax Every 28 Days* Plan Start Date:01/21/2024 Plan Provider:New Mckinney MD Linked Problems Acute myeloid leukemia not h aving achieved remission (CMS/HCC) Treatment Medications Current Day (Day 1 , Cycle 3 - Planned for 07/30/2024) Next Day (Day 2, Cycle 3 - Planned for 07/31/2024) azaCITIDine (Vidaza)azaCITID ine (Vidaza) IVPBvenetoclax (Venclexta) azaCITIDine (Vidaza) 130 mg in sodium chloride 0.9 % 50 mL IVPB azaCITIDine (Vidaza) 130 mg in sodium chloride 0.9 % 50 mL IVPB HEM/BMT Blood Administration for Outpatient* Plan Start Date:02/07/2024 Plan Provider:New Mckinney MD Linked Problems Acute myeloid leukemia not h aving achieved remission (CMS/HCC) Treatment Medications No medications scheduled. Past Treatment and Therapy Plans No past plan information found. Lifetime Dose Tracking * Chemical Lifetime Dose Automatic Entry Manual Entr y Fluoro Time 0.4 minutes 0.4 minutes 0 minutes Air Kerma 3 mGy 3 mGy 0 mGy Radiation (DLP) Retired 280 mGy-cm. 280 mGy-cm. 0 mG y-cm. CTDIvol 72.2 mGy 72.2 mGy 0 mGy Air Kerma Area Product 62.29 Gym 62.29 Gym 0 Gym
--- OUTSIDE RECORDS SUMMARY | 2024-09-22 08:58 | XMS_ITS | Encounter Summary ---
Author Organization [facility] Address [address] [place] [address] Care Team Providers Care Canned Food Reconditioning Inspector Name Role Phone Jevon Vazquez MD Primary Care Provider [phone] Encounter Details Date Type Department Care Team (Latest Contact Info) Description 09/15/2024 Travel Social History Tobacco Use Types Packs/Day Years [...] Care Team (Late st Contact Info) Description 09/30/2024 9:00 AM EDT Clinical Support [facility] Hematology/BMT and Cellular Therapy Program [address] [address] 09/30/2024 9:30 AM EDT Office Visit [facility] CC Hematology/BMT and Cellular Therapy Program [address] [address] Zonia Hoffman, WEIGHBRIDGE OPERATOR 800 [facility] [place] [address] 09/30/2024 11:00 AM EDT Appointment [facility] 1 [address] [place] [address] 10/01/2024 8:30 AM EDT Appointment [facility] 1 [address] [place] [address] 10/02/2024 8:00 AM EDT Appointment [facility] 1 [address] [place] [address] 10/03/2024 8:00 AM EDT Appointment [facility] 1 [address] [place] [address] 10/04/2024 8:00 AM EDT Appointment [facility] 1 [address] [place] [address] 10/05/2024 8:00 AM EDT Appointment [facility] 1 [address] [place] [address] 10/06/2024 8:00 AM EDT Appointment [facility] 1 [address] [place] [address] documented as of this encounter Visit Diagnoses Not on filedocumented in this encounter Additional Health Concerns Assessment Noted Time A fall risk assessment has been complete d for the patient 07/30/2024 8:29 AM EDT A Body Mass Index follow-up plan has been documented for the patient 05/28/2024 1:52 PM EST documented as of this encounter Care Teams Canned Food Reconditioning Inspector Relationship Specialty Start Date End Date Jevon Vazquez MD [address] [place] [address] #1 #1 [place] [address] PCP - General 03/23/22 documented as of this encounter
--- OUTSIDE RECORDS SUMMARY | 2024-09-22 08:58 | XMS_ITS | Encounter Summary ---
Author Organization [facility] Address [address] [place] [address] Care Team Providers Care Coordinator Of Evaluation Name Role Phone Jevon Vazquez MD Primary Care Provider [phone] Reason for Visit * Reason Comments Med Refill Encounter Details Date Type Department Care Team ([facility] Contact Info) Description 09/12/2024 Refill P[facility] CC Hematology/BMT and Cellular Therapy Program [address] [phone] New Mckinney MD 800 [facility] [address] [place] [phone] Social History Tobacco Use Types Packs/Day Years [...] Upcoming Encounters Date Type Department Care Team ([facility] Contact Info) Description 09/30/2024 9:00 AM EDT Clinical Support [facility] CC Hematology/BMT and Cellular Therapy Program [address] [phone] 09/30/2024 9:30 AM EDT Office Visit [facility] CC Hematology/BMT and Cellular Therapy Program [address] [address] Zonia Hoffman, FISH NET STRINGER [address] [facility] [address] [place] [address] 09/30/2024 11:00 AM EDT Appointment [facility] 1 [address] [place] [address] 10/01/2024 8:30 AM EDT Appointment [facility] 1 [address] [place] [address] 10/02/2024 8:00 AM EDT Appointment [facility] 1 [address] [place] [address] 10/03/2024 8:00 AM EDT Appointment [facility] 1 [address] [place] [address] 10/04/2024 8:00 AM EDT Appointment [facility] 1 [address] [place] [address] 10/05/2024 8:00 AM EDT Appointment [facility] 1 [address] [place] [address] 10/06/2024 8:00 AM EDT Appointment [facility] 1 [address] [place] [address] documented as of this encounter Visit Diagnoses Not on filedocumented in this encounter Additional Health Concerns Assessment Noted Time A fall risk assessment has been complete d for the patient 07/30/2024 8:29 AM EDT A Body Mass Index follow-up plan has been documented for the patient 05/28/2024 1:52 PM EST documented as of this encounter Care Teams Coordinator Of Evaluation Relationship Specialty Start Date End Date Jevon Vazquez MD [address] [place] [address] #1 #1 [place] [address] PCP - General 03/23/22 documented as of this encounter
--- OUTSIDE RECORDS SUMMARY | 2024-09-22 08:58 | XMS_ITS | Encounter Summary ---
Author Organization [facility] Address [address] [place] [address] Care Team Providers Care Rivet Flunky Name Role Phone Jevon Vazquez MD Primary Care Provider [phone] Encounter Details Date Type Department Care Team (Latest Contact Info) Description 08/31/2024 Travel Social History Tobacco Use Types Packs/Day [...] CC Hematology/BMT and Cellular Therapy Program [address] [address] 09/30/2024 9:30 AM EDT Office Visit [facility] CC Hematology/BMT and Cellular Therapy Program [address] [phone] Zonia Hoffman, OUTSIDE SALES 800 [facility] [address] [place] [address] 09/30/2024 11:00 AM EDT Appointment [facility] 1 [address] [place] [address] 10/01/2024 8:30 AM EDT Appointment [facility] 1 [address] [place] [address] 10/02/2024 8:00 AM EDT Appointment [facility] 1 [address] [place] [address] 10/03/2024 8:00 AM EDT Appointment [facility] 1 [address] [place] [address] 10/04/2024 8:00 AM EDT Appointment [facility] 1 [address] [place] [address] 10/05/2024 8:00 AM EDT Appointment [facility] 1 [address] [place] [address] 10/06/2024 8:00 AM EDT Appointment [facility] 1 [address] [place] [address] documented as of this encounter Visit Diagnoses Not on filedocumented in this encounter Additional Health Concerns Assessment Noted Time A fall risk assessment has been complete d for the patient 07/30/2024 8:29 AM EDT A Body Mass Index follow-up plan has been documented for the patient 05/28/2024 1:52 PM EST documented as of this encounter Care Teams Rivet Flunky Relationship Specialty Start Date End Date Jevon Vazquez MD [address] [place] [address] #1 #1 [place] [address] PCP - General 03/23/22 documented as of this encounter
--- OUTSIDE RECORDS SUMMARY | 2024-09-22 08:58 | XMS_ITS | Encounter Summary ---
Author Organization [facility] Address [address] [place] [address] Care Team Providers Care Operations Boardman Name Role Phone Jevon Vazquez MD Primary Care Provider [phone] Encounter Details Date Type Department Care Team (Latest Contact Info) Description 07/24/2024 Travel Social History Tobacco Use Types Packs/Day [...] Hematology/BMT and Cellular Therapy Program [address] [address] 09/30/2024 9:30 AM EDT Office Visit PAV CC Hematology/BMT and Cellular Therapy Program [address] [address] Zonia Hoffman, AMUSEMENT PARK RIDE MECHANIC 800 [facility] [place] [address] 09/30/2024 11:00 AM EDT Appointment [facility] 1 [address] [place] [address] 10/01/2024 8:30 AM EDT Appointment [facility] 1 [address] [place] [address] 10/02/2024 8:00 AM EDT Appointment [facility] 1 [address] [place] [address] 10/03/2024 8:00 AM EDT Appointment [facility] 1 [address] [place] [address] 10/04/2024 8:00 AM EDT Appointment [facility] 1 [address] [place] [address] 10/05/2024 8:00 AM EDT Appointment [facility] 1 [address] [place] [address] 10/06/2024 8:00 AM EDT Appointment [facility] 1 [address] [place] [address] documented as of this encounter Visit Diagnoses Not on filedocumented in this encounter Additional Health Concerns Assessment Noted Time A fall risk assessment has been complete d for the patient 07/16/2024 8:54 AM EDT A Body Mass Index follow-up plan has been documented for the patient 05/28/2024 1:52 PM EST documented as of this encounter Care Teams Operations Boardman Relationship Specialty Start Date End Date Jevon Vazquez MD [address] [place] [address] #1 #1 [place] [address] PCP - General 03/23/22 documented as of this encounter
--- OUTSIDE RECORDS SUMMARY | 2024-09-22 08:58 | XMS_ITS | Encounter Summary ---
Author Organization [facility] Address [address] [place] [address] Care Team Providers Care Pharm Tech Name Role Phone Jevon Vazquez MD Primary Care Provider [phone] Encounter Details Date Type Department Care Team (Latest Contact Info) Description 07/26/2024 Travel Social History Tobacco Use Types Packs/Day [...] CC Hematology/BMT and Cellular Therapy Program [address] [address] 09/30/2024 9:30 AM EDT Office Visit PAV CC Hematology/BMT and Cellular Therapy Program [address] [phone] Zonia Hoffman, TEXTILE COLORIST DYER 800 [facility] [place] [address] 09/30/2024 11:00 AM EDT Appointment [facility] 1 [address] [place] [address] 10/01/2024 8:30 AM EDT Appointment [facility] 1 [address] [place] [address] 10/02/2024 8:00 AM EDT Appointment [facility] 1 [address] [place] [address] 10/03/2024 8:00 AM EDT Appointment [facility] 1 [address] [place] [address] 10/04/2024 8:00 AM EDT Appointment [facility] 1 [address] [place] [address] 10/05/2024 8:00 AM EDT Appointment [facility] 1 [address] [place] [address] 10/06/2024 8:00 AM EDT Appointment [facility] 1 [address] [place] [address] documented as of this encounter Visit Diagnoses Not on filedocumented in this encounter Additional Health Concerns Assessment Noted Time A fall risk assessment has been complete d for the patient 07/16/2024 8:54 AM EDT A Body Mass Index follow-up plan has been documented for the patient 05/28/2024 1:52 PM EST documented as of this encounter Care Teams Pharm Tech Relationship Specialty Start Date End Date Jevon Vazquez MD [address] [place] [address] #1 #1 [place] [address] PCP - General 03/23/22 documented as of this encounter
--- OUTSIDE RECORDS SUMMARY | 2024-09-22 08:58 | XMS_ITS | Encounter Summary ---
Author Organization [facility] Address [address] [place] [address] Care Team Providers Care Research Fellow Name Role Phone Jevon Vazquez MD Primary Care Provider [phone] Encounter Details Date Type Department Care Team (Latest Contact Info) Description 09/14/2024 Travel Social History Tobacco Use Types Packs/Day [...] Hematology/BMT and Cellular Therapy Program [address] [address] 09/30/2024 9:30 AM EDT Office Visit P[facility] CC Hematology/BMT and Cellular Therapy Program [address] [address] Zonia Hoffman, SOLAR SALES ENERGY ADVISOR 800 [facility] [place] [address] 09/30/2024 11:00 AM EDT Appointment [facility] 1 [address] [place] [address] 10/01/2024 8:30 AM EDT Appointment [facility] 1 [address] [place] [address] 10/02/2024 8:00 AM EDT Appointment [facility] 1 [address] [place] [address] 10/03/2024 8:00 AM EDT Appointment [facility] 1 [address] [place] [address] 10/04/2024 8:00 AM EDT Appointment [facility] 1 [address] [place] [address] 10/05/2024 8:00 AM EDT Appointment [facility] 1 [address] [place] [address] 10/06/2024 8:00 AM EDT Appointment [facility] 1 [address] [place] [address] documented as of this encounter Visit Diagnoses Not on filedocumented in this encounter Additional Health Concerns Assessment Noted Time A fall risk assessment has been complete d for the patient 07/30/2024 8:29 AM EDT A Body Mass Index follow-up plan has been documented for the patient 05/28/2024 1:52 PM EST documented as of this encounter Care Teams Research Fellow Relationship Specialty Start Date End Date Jevon Vazquez MD [address] [place] [address] #1 #1 [place] [address] PCP - General 03/23/22 documented as of this encounter
--- OUTSIDE RECORDS SUMMARY | 2024-09-22 08:58 | XMS_ITS | Encounter Summary ---
Author Organization [facility] Address [address] [place] [address] Care Team Providers Care Strategic Analyst Name Role Phone Jevon Vazquez MD Primary Care Provider [phone] Encounter Details Date Type Department Care Team (Latest Contact Info) Description 09/10/2024 Travel Social History Tobacco Use Types Packs/Day [...] Hematology/BMT and Cellular Therapy Program [address] [address] 09/30/2024 9:30 AM EDT Office Visit PAV CC Hematology/BMT and Cellular Therapy Program [address] [address] Zonia Hoffman, BUSINESS AFFAIRS MANAGER 800 [facility] [place] [address] 09/30/2024 11:00 AM EDT Appointment [facility] 1 [address] [place] [address] 10/01/2024 8:30 AM EDT Appointment [facility] 1 [address] [place] [address] 10/02/2024 8:00 AM EDT Appointment [facility] 1 [address] [place] [address] 10/03/2024 8:00 AM EDT Appointment [facility] 1 [address] [place] [address] 10/04/2024 8:00 AM EDT Appointment [facility] 1 [address] [place] [address] 10/05/2024 8:00 AM EDT Appointment [facility] 1 [address] [place] [address] 10/06/2024 8:00 AM EDT Appointment [facility] 1 [address] [place] [address] documented as of this encounter Visit Diagnoses Not on filedocumented in this encounter Additional Health Concerns Assessment Noted Time A fall risk assessment has been complete d for the patient 07/30/2024 8:29 AM EDT A Body Mass Index follow-up plan has been documented for the patient 05/28/2024 1:52 PM EST documented as of this encounter Care Teams Strategic Analyst Relationship Specialty Start Date End Date Jevon Vazquez MD [address] [place] [address] #1 #1 [place] [address] PCP - General 03/23/22 documented as of this encounter
--- OUTSIDE RECORDS SUMMARY | 2024-09-22 08:58 | XMS_ITS | Encounter Summary ---
Author Organization Healthcare Address [address] [place] [address] Care Team Providers Care Miner Pick Name Role Phone Jevon Vazquez MD Primary Care Provider [phone] Encounter Details Date Type Department Care Team (Latest Contact Info) Description 08/15/2024 Travel Social History Tobacco Use Types Packs/Day [...] CC Hematology/BMT and Cellular Therapy Program [address] [address] 09/30/2024 9:30 AM EDT Office Visit [facility] Hematology/BMT and Cellular Therapy Program [address] [address] Zonia Hoffman, HEAD FILTER TANK TENDER HELPER 800 [facility] [place] [address] 09/30/2024 11:00 AM EDT Appointment [facility] 1 [address] [place] [address] 10/01/2024 8:30 AM EDT Appointment [facility] 1 [address] [place] [address] 10/02/2024 8:00 AM EDT Appointment [facility] 1 [address] [place] [address] 10/03/2024 8:00 AM EDT Appointment [facility] 1 [address] [place] [address] 10/04/2024 8:00 AM EDT Appointment [facility] 1 [address] [place] [address] 10/05/2024 8:00 AM EDT Appointment [facility] 1 [address] [place] [address] 10/06/2024 8:00 AM EDT Appointment [facility] 1 [address] [place] [address] documented as of this encounter Visit Diagnoses Not on filedocumented in this encounter Additional Health Concerns Assessment Noted Time A fall risk assessment has been complete d for the patient 07/30/2024 8:29 AM EDT A Body Mass Index follow-up plan has been documented for the patient 05/28/2024 1:52 PM EST documented as of this encounter Care Teams Miner Pick Relationship Specialty Start Date End Date Jevon Vazquez MD [address] [place] [address] [address] [place] [address] PCP - General 03/23/22 documented as of this encounter
--- OUTSIDE RECORDS SUMMARY | 2024-09-22 08:58 | XMS_ITS | Encounter Summary ---
Author Organization Healthcare Address [address] [place] [address] Care Team Providers Care Cigar Packer Name Role Phone Jevon Vazquez MD Primary Care Provider [phone] Encounter Details Date Type Department Care Team (Latest Contact Info) Description 09/12/2024 Travel Social History Tobacco Use Types Packs/Day [...] CC Hematology/BMT and Cellular Therapy Program [address] [address] 09/30/2024 9:30 AM EDT Office Visit [facility] CC Hematology/BMT and Cellular Therapy Program [address] [address] Zonia Hoffman, COSMETIC SALES CONSULTANT 800 [facility] [place] [address] 09/30/2024 11:00 AM EDT Appointment [facility] 1 [address] [place] [address] 10/01/2024 8:30 AM EDT Appointment [facility] 1 [address] [place] [address] 10/02/2024 8:00 AM EDT Appointment [facility] 1 [address] [place] [address] 10/03/2024 8:00 AM EDT Appointment [facility] 1 [address] [place] [address] 10/04/2024 8:00 AM EDT Appointment [facility] 1 [address] [place] [address] 10/05/2024 8:00 AM EDT Appointment [facility] 1 [address] [place] [address] 10/06/2024 8:00 AM EDT Appointment [facility] 1 [address] [place] [address] documented as of this encounter Visit Diagnoses Not on filedocumented in this encounter Additional Health Concerns Assessment Noted Time A fall risk assessment has been complete d for the patient 07/30/2024 8:29 AM EDT A Body Mass Index follow-up plan has been documented for the patient 05/28/2024 1:52 PM EST documented as of this encounter Care Teams Cigar Packer Relationship Specialty Start Date End Date Jevon Vazquez MD [address] [place] [address] [address] [place] [address] PCP - General 03/23/22 documented as of this encounter
--- OUTSIDE RECORDS SUMMARY | 2024-09-22 08:58 | XMS_ITS | Encounter Summary ---
Author Organization Healthcare Address [address] [place] [address] Care Team Providers Care Housing And Residence Life Director Name Role Phone Jevon Vazquez MD Primary Care Provider [phone] Encounter Details Date Type Department Care Team (Latest Contact Info) Description 08/13/2024 Travel Social History Tobacco Use Types Packs/Day [...] CC Hematology/BMT and Cellular Therapy Program [address] [address] 09/30/2024 9:30 AM EDT Office Visit [facility] CC Hematology/BMT and Cellular Therapy Program [address] [address] Zonia Hoffman, OPEN END SPINNING OPERATOR 800 [facility] [place] [address] 09/30/2024 11:00 AM EDT Appointment [facility] 1 [address] [place] [address] 10/01/2024 8:30 AM EDT Appointment [facility] 1 [address] [place] [address] 10/02/2024 8:00 AM EDT Appointment [facility] 1 [address] [place] [address] 10/03/2024 8:00 AM EDT Appointment [facility] 1 [address] [place] [address] 10/04/2024 8:00 AM EDT Appointment [facility] 1 [address] [place] [address] 10/05/2024 8:00 AM EDT Appointment [facility] 1 [address] [place] [address] 10/06/2024 8:00 AM EDT Appointment [facility] 1 [address] [place] [address] documented as of this encounter Visit Diagnoses Not on filedocumented in this encounter Additional Health Concerns Assessment Noted Time A fall risk assessment has been complete d for the patient 07/30/2024 8:29 AM EDT A Body Mass Index follow-up plan has been documented for the patient 05/28/2024 1:52 PM EST documented as of this encounter Care Teams Housing And Residence Life Director Relationship Specialty Start Date End Date Jevon Vazquez MD [address] [place] [address] [address] [place] [address] PCP - General 03/23/22 documented as of this encounter
--- OUTSIDE RECORDS SUMMARY | 2024-09-22 08:58 | XMS_ITS | Encounter Summary ---
Author Organization Healthcare Address [address] [place] [address] Care Team Providers Care Ring Spinner Name Role Phone Jevon Vazquez MD Primary Care Provider Encounter Details Date Type Department Care Team (Latest Contact Info) Description 09/13/2024 Travel Social History Tobacco Use Types Packs/Day [...] Hematology/BMT and Cellular Therapy Program [address] [address] 09/30/2024 9:30 AM EDT Office Visit [facility] CC Hematology/BMT and Cellular Therapy Program [address] [address] Zonia Hoffman, SNOW MAKER 800 [facility] [place] [address] 09/30/2024 11:00 AM EDT Appointment [facility] 1 [address] [place] [address] 10/01/2024 8:30 AM EDT Appointment [facility] 1 [address] [place] [address] 10/02/2024 8:00 AM EDT Appointment [facility] 1 [address] [place] [address] 10/03/2024 8:00 AM EDT Appointment [facility] 1 [address] [place] [address] 10/04/2024 8:00 AM EDT Appointment [facility] 1 [address] [place] [address] 10/05/2024 8:00 AM EDT Appointment [facility] 1 [address] [place] [address] 10/06/2024 8:00 AM EDT Appointment [facility] 1 [address] [place] [address] documented as of this encounter Visit Diagnoses Not on filedocumented in this encounter Additional Health Concerns Assessment Noted Time A fall risk assessment has been complete d for the patient 07/30/2024 8:29 AM EDT A Body Mass Index follow-up plan has been documented for the patient 05/28/2024 1:52 PM EST documented as of this encounter Care Teams Ring Spinner Relationship Specialty Start Date End Date Jevon Vazquez MD [address] [place] [address] [address] [place] [address] PCP - General 03/23/22 documented as of this encounter
--- OUTSIDE RECORDS SUMMARY | 2024-09-22 08:58 | XMS_ITS | Encounter Summary ---
Author Organization [facility] Address [address] [place] [address] Care Team Providers Care Housekeeping Assistant Name Role Phone Jevon Vazquez MD Primary Care Provider [phone] Reason for Visit * Reason Onset Date Comments Med Refill 07/30/2024 Encounter Details Date Type Department Care Team ([facility] Contact Info) Description 07/30/2024 Refill P[facility] CC Hematology/BMT and Cellular Therapy Program [address] [place] [address] Daxa Elliott, RN [facility] HEMATOLOGY PROGRAM CLINIC 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); Immunosuppressed status (CMS/HCC) Social History Tobacco Use Types Packs/Day [...] Upcoming Encounters Date Type Department Care Team ([facility] Contact Info) Description 09/30/2024 9:00 AM EDT Clinical Support [facility] CC Hematology/BMT and Cellular Therapy Program [address] [place] [address] 09/30/2024 9:30 AM EDT Office Visit [facility] CC Hematology/BMT and Cellular Therapy Program [address] [place] [address] Zonia Hoffman, VENDING SUPERVISOR [address] [facility] [address] [place] [address] 09/30/2024 11:00 AM EDT Appointment [facility] 1 [address] [place] [address] 10/01/2024 8:30 AM EDT Appointment [facility] 1 [address] [place] [address] 10/02/2024 8:00 AM EDT Appointment [facility] 1 [address] [place] [address] 10/03/2024 8:00 AM EDT Appointment [facility] 1 [address] [place] [address] 10/04/2024 8:00 AM EDT Appointment [facility] 1 [address] [place] [address] 10/05/2024 8:00 AM EDT Appointment [facility] 1 [address] [place] [address] 10/06/2024 8:00 AM EDT Appointment [facility] 1 [address] [place] [address] documented as of this encounter Visit Diagnoses Diagnosis 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
--- OUTSIDE RECORDS SUMMARY | 2024-09-22 08:58 | XMS_ITS | Encounter Summary ---
Author Organization Healthcare Address [address] [place] [address] Care Team Providers Care Fur Comber Name Role Phone Jevon Vazquez MD Primary Care Provider [phone] Encounter Details Date Type Department Care Team (Latest Contact Info) Description 08/16/2024 Travel Social History Tobacco Use Types Packs/Day [...] CC Hematology/BMT and Cellular Therapy Program [address] [address] 09/30/2024 9:30 AM EDT Office Visit [facility] CC Hematology/BMT and Cellular Therapy Program [address] [address] Zonia Hoffman, GUIDE VISITOR 800 [facility] [place] [address] 09/30/2024 11:00 AM EDT Appointment [facility] 1 [address] [place] [address] 10/01/2024 8:30 AM EDT Appointment [facility] 1 [address] [place] [address] 10/02/2024 8:00 AM EDT Appointment [facility] 1 [address] [place] [address] 10/03/2024 8:00 AM EDT Appointment [facility] 1 [address] [place] [address] 10/04/2024 8:00 AM EDT Appointment [facility] 1 [address] [place] [address] 10/05/2024 8:00 AM EDT Appointment [facility] 1 [address] [place] [address] 10/06/2024 8:00 AM EDT Appointment [facility] 1 [address] [place] [address] documented as of this encounter Visit Diagnoses Not on filedocumented in this encounter Additional Health Concerns Assessment Noted Time A fall risk assessment has been complete d for the patient 07/30/2024 8:29 AM EDT A Body Mass Index follow-up plan has been documented for the patient 05/28/2024 1:52 PM EST documented as of this encounter Care Teams Fur Comber Relationship Specialty Start Date End Date Jevon Vazquez MD [address] [place] [address] [address]1 [place] [address] PCP - General 03/23/22 documented as of this encounter
--- OUTSIDE RECORDS SUMMARY | 2024-09-22 08:58 | XMS_ITS | Encounter Summary ---
Author Organization Healthcare Address [address] [place] [address] Care Team Providers Care Matchbook Assembler Name Role Phone Jevon Vazquez MD Primary Care Provider [phone] Encounter Details Date Type Department Care Team ([facility] st Contact Info) Description 07/15/2024 Telephone PAV CC Hematology/BMT and Cellular Therapy Program [address] [address] Zonia Hoffman, INDOOR SPORTS CENTRE MANAGER 800 [facility] [address] [place] [address] Social History Tobacco Use Types Packs/Day Years [...] as of this encounter Miscellaneous Notes * Telephone Encounter - Shelly Pollock RN - 07/15/2024 2:40 PM EDT This RN returned call and answered all questions and concerns * Telephone Encounter - Ness Fowler - 07/15/2024 2:16 PM EDT Patient Phone Message Reason for Call: Per PT call to [facility], fabiana Hoffman appt clarity, asking to have Jorge from clinical care team. Best contact number and optimal time of day to reach caller: [phone] Note: Please do not reply to this message. Follow-up communication and further actions as a result of this message need to be communicated with the patient directly, if the patient is not active onMyChart. If the patient is active on MyChart, they will receive notification of the communication/outcome via MyChart. documented in this encounter Plan of Treatment Upcoming Encounters Date Type Department Care Team ([facility] st Contact Info) Description 09/30/2024 9:00 AM EDT Clinical Support PAV Hematology/BMT and Cellular Therapy Program [address] [place] [address] 09/30/2024 9:30 AM EDT Office Visit PAV Hematology/BMT and Cellular Therapy Program [address] [address] Zonia Hoffman, INDOOR SPORTS CENTRE MANAGER 800 [facility] [address] [place] [address] 09/30/2024 11:00 AM EDT Appointment [facility] 1 [address] [place] [address] 10/01/2024 8:30 AM EDT Appointment [facility] 1 [address] [place] [address] 10/02/2024 8:00 AM EDT Appointment [facility] 1 [address] [place] [address] 10/03/2024 8:00 AM EDT Appointment [facility] 1 [address] [place] [address] 10/04/2024 8:00 AM EDT Appointment [facility] 1 4 [place] [address] 10/05/2024 8:00 AM EDT Appointment [facility] 1 [address] [place] [address] 10/06/2024 8:00 AM EDT Appointment [facility] Infusion Clinic 1 [address] [place] [address] documented as of this encounter Visit Diagnoses Not on filedocumented in this encounter Additional Health Concerns Assessment Noted Time A fall risk assessment has been complete d for the patient 06/18/2024 10:22 AM EST A Body Mass Index follow-up plan has been documented for the patient 05/28/2024 1:52 PM EST documented as of this encounter Care Teams Matchbook Assembler Relationship Specialty Start Date End Date Jevon Vazquez MD [address] [place] [address] #1 [address]1 [place] [address] PCP - General 03/23/22 documented as of this encounter
--- OUTSIDE RECORDS SUMMARY | 2024-09-22 08:58 | XMS_ITS | Encounter Summary ---
Author Organization Healthcare Address [address] [place] [address] Care Team Providers Care Cell Maker Name Role Phone Jevon Vazquez MD Primary Care Provider [phone] Encounter Details Date Type Department Care Team (Latest Contact Info) Description 07/30/2024 Travel Social History Tobacco Use Types Packs/Day [...] Hematology/BMT and Cellular Therapy Program [address] [address] 09/30/2024 9:30 AM EDT Office Visit [facility] CC Hematology/BMT and Cellular Therapy Program [address] [address] Zonia Hoffman, LICENSED PHYSICAL THERAPIST 800 [facility] [place] [address] 09/30/2024 11:00 AM EDT Appointment [facility] 1 [address] [place] [address] 10/01/2024 8:30 AM EDT Appointment [facility] 1 [address] [place] [address] 10/02/2024 8:00 AM EDT Appointment [facility] 1 [address] [place] [address] 10/03/2024 8:00 AM EDT Appointment [facility] 1 [address] [place] [address] 10/04/2024 8:00 AM EDT Appointment [facility] 1 [address] [place] [address] 10/05/2024 8:00 AM EDT Appointment [facility] 1 [address] [place] [address] 10/06/2024 8:00 AM EDT Appointment [facility] 1 [address] [place] [address] documented as of this encounter Visit Diagnoses Not on filedocumented in this encounter Additional Health Concerns Assessment Noted Time A fall risk assessment has been complete d for the patient 07/30/2024 8:29 AM EDT A Body Mass Index follow-up plan has been documented for the patient 05/28/2024 1:52 PM EST documented as of this encounter Care Teams Cell Maker Relationship Specialty Start Date End Date Jevon Vazquez MD [address] [place] [address] [address]1 [address] [place] [address] PCP - General 03/23/22 documented as of this encounter
--- OUTSIDE RECORDS SUMMARY | 2024-09-22 08:58 | XMS_ITS | Encounter Summary ---
Author Organization Healthcare Address [address] [place] [address] Care Team Providers Care Concrete Gun Operator Name Role Phone Jevon Vazquez MD Primary Care Provider [phone] Encounter Details Date Type Department Care Team (Latest Contact Info) Description 07/29/2024 Travel Social History Tobacco Use Types Packs/Day [...] Hematology/BMT and Cellular Therapy Program [address] [address] 09/30/2024 9:30 AM EDT Office Visit [facility] CC Hematology/BMT and Cellular Therapy Program [address] [address] Zonia Hoffman, GAS CHECK PAD MAKER 800 [facility] [place] [address] 09/30/2024 11:00 AM EDT Appointment [facility] 1 [address] [place] [address] 10/01/2024 8:30 AM EDT Appointment [facility] 1 [address] [place] [address] 10/02/2024 8:00 AM EDT Appointment [facility] 1 [address] [place] [address] 10/03/2024 8:00 AM EDT Appointment [facility] 1 [address] [place] [address] 10/04/2024 8:00 AM EDT Appointment [facility] 1 [address] [place] [address] 10/05/2024 8:00 AM EDT Appointment [facility] 1 [address] [place] [address] 10/06/2024 8:00 AM EDT Appointment [facility] 1 [address] [place] [address] documented as of this encounter Visit Diagnoses Not on filedocumented in this encounter Additional Health Concerns Assessment Noted Time A fall risk assessment has been complete d for the patient 07/16/2024 8:54 AM EDT A Body Mass Index follow-up plan has been documented for the patient 05/28/2024 1:52 PM EST documented as of this encounter Care Teams Concrete Gun Operator Relationship Specialty Start Date End Date Jevon Vazquez MD [address] [place] [address] [address] [place] [address] PCP - General 03/23/22 documented as of this encounter
--- OUTSIDE RECORDS SUMMARY | 2024-09-22 08:58 | XMS_ITS | Encounter Summary ---
Author Organization Healthcare Address [address] [place] [address] Care Team Providers Care Station Supervisor Name Role Phone Jevon Vazquez MD Primary Care Provider [phone] Encounter Details Date Type Department Care Team (Latest Contact Info) Description 09/19/2024 Travel Social History Tobacco Use Types Packs/Day [...] CC Hematology/BMT and Cellular Therapy Program [address] [address] 09/30/2024 9:30 AM EDT Office Visit [facility] CC Hematology/BMT and Cellular Therapy Program [address] [address] Zonia Hoffman, SPRING LAYER 800 [facility] [place] [address] 09/30/2024 11:00 AM EDT Appointment [facility] 1 [address] [place] [address] 10/01/2024 8:30 AM EDT Appointment [facility] 1 [address] [place] [address] 10/02/2024 8:00 AM EDT Appointment [facility] 1 [address] [place] [address] 10/03/2024 8:00 AM EDT Appointment [facility] 1 [address] [place] [address] 10/04/2024 8:00 AM EDT Appointment [facility] 1 [address] [place] [address] 10/05/2024 8:00 AM EDT Appointment [facility] 1 [address] [place] [address] 10/06/2024 8:00 AM EDT Appointment [facility] 1 [address] [place] [address] documented as of this encounter Visit Diagnoses Not on filedocumented in this encounter Additional Health Concerns Assessment Noted Time A fall risk assessment has been complete d for the patient 09/19/2024 8:38 AM EDT A Body Mass Index follow-up plan has been documented for the patient 05/28/2024 1:52 PM EST documented as of this encounter Care Teams Station Supervisor Relationship Specialty Start Date End Date Jevon Vazquez MD [address] [place] [address] [address] [place] [address] PCP - General 03/23/22 documented as of this encounter
--- OUTSIDE RECORDS SUMMARY | 2024-09-22 08:58 | XMS_ITS | Encounter Summary ---
Author Organization Healthcare Address [address] [place] [address] Care Team Providers Care Nurses' Association Executive Director Name Role Phone Jevon Vazquez MD Primary Care Provider [phone] Encounter Details Date Type Department Care Team (Latest Contact Info) Description 08/30/2024 Travel Social History Tobacco Use Types Packs/Day [...] CC Hematology/BMT and Cellular Therapy Program [address] [address] 09/30/2024 9:30 AM EDT Office Visit [facility] CC Hematology/BMT and Cellular Therapy Program [address] [address] Zonia Hoffman, CIAIO COUNTER MOLDER 800 [facility] [place] [address] 09/30/2024 11:00 AM EDT Appointment [facility] 1 [address] [place] [address] 10/01/2024 8:30 AM EDT Appointment [facility] 1 [address] [place] [address] 10/02/2024 8:00 AM EDT Appointment [facility] 1 [address] [place] [address] 10/03/2024 8:00 AM EDT Appointment [facility] 1 [address] [place] [address] 10/04/2024 8:00 AM EDT Appointment [facility] 1 [address] [place] [address] 10/05/2024 8:00 AM EDT Appointment [facility] 1 [address] [place] [address] 10/06/2024 8:00 AM EDT Appointment [facility] 1 [address] [place] [address] documented as of this encounter Visit Diagnoses Not on filedocumented in this encounter Additional Health Concerns Assessment Noted Time A fall risk assessment has been complete d for the patient 07/30/2024 8:29 AM EDT A Body Mass Index follow-up plan has been documented for the patient 05/28/2024 1:52 PM EST documented as of this encounter Care Teams Nurses' Association Executive Director Relationship Specialty Start Date End Date Jevon Vazquez MD [address] [place] [address] [address] [place] [address] PCP - General 03/23/22 documented as of this encounter
--- OUTSIDE RECORDS SUMMARY | 2024-09-22 08:58 | XMS_ITS | Encounter Summary ---
Author Organization Healthcare Address [address] [place] [address] Care Team Providers Care Carton Stapler Name Role Phone Jevon Vazquez MD Primary Care Provider [phone] Encounter Details Date Type Department Care Team (Latest Contact Info) Description 08/17/2024 Travel Social History Tobacco Use Types Packs/Day [...] Hematology/BMT and Cellular Therapy Program [address] [address] 09/30/2024 9:30 AM EDT Office Visit [facility] H[facility]ology[facility]BMT [facility] Cellular Therapy Program [address] [address] Zonia Hoffman, CHAIRMAN PRESIDENT AND CHIEF EXECUTIVE OFFICER [address] [facility] [place] [address] 09/30/2024 11:00 AM EDT Appointment [facility] [address] [place] [address] 10/01/2024 8:30 AM EDT Appointment [facility] [address] [place] [address] 10/02/2024 8:00 AM EDT Appointment [facility] [address] [place] [address] 10/03/2024 8:00 AM EDT Appointment [facility] 1 [address] [place] [address] 10/04/2024 8:00 AM EDT Appointment [facility] 1 [address] [place] [address] 10/05/2024 8:00 AM EDT Appointment [facility] [address] [place] [address] 10/06/2024 8:00 AM EDT Appointment [facility] [address] [place] [address] documented as of this encounter Visit Diagnoses Not on filedocumented in this encounter Additional Health Concerns Assessment Noted Time A fall risk assessment has been complete d for the patient 07/30/2024 8:29 AM EDT A Body Mass Index follow-up plan has been documented for the patient 05/28/2024 1:52 PM EST documented as of this encounter Care Teams Carton Stapler Relationship Specialty Start Date End Date Jevon Vazquez MD [address] [place] [address] [address] [place] [address] PCP - General 03/23/22 documented as of this encounter
--- OUTSIDE RECORDS SUMMARY | 2024-09-22 08:58 | XMS_ITS | Encounter Summary ---
Author Organization Healthcare Address [address] [place] [address] Care Team Providers Care It Business Process Architect Name Role Phone Jevon Vazquez MD Primary Care Provider [phone] Encounter Details Date Type Department Care Team ([facility] st Contact Info) Description 08/18/2024 Telephone [facility] Hematology/BMT and Cellular Therapy Program [address] [address] Romana Gorman, SOUND TECHNICIAN SUPERVISOR [address] [facility] [address] [place] [address] Social History Tobacco Use Types Packs/Day Years [...] encounter Miscellaneous Notes * Telephone Encounter - 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, RN - 08/19/2024 9:30 AM EDT RN spoke with pt's and discussed schedule change. He verbalizes understanding. * Telephone Encounter - Elizabet Paz - 08/18/2024 10:53 AM EDT Patient calling to cancel appt due to her levels being low Callback number: [phone] documented in this encounter Plan of Treatment Upcoming Encounters Date Type Department Care Team (Late st Contact Info) Description 09/30/2024 9:00 AM EDT Clinical Support [facility] Hematology/BMT and Cellular Therapy Program [address] [address] 09/30/2024 9:30 AM EDT Office Visit [facility] Hematology/BMT and Cellular Therapy Program [address] [address] Zonia Hoffman, SOUND TECHNICIAN SUPERVISOR [address] [facility] [address] [place] [address] 09/30/2024 11:00 AM EDT Appointment [facility] 1 [address] [place] [address] 10/01/2024 8:30 AM EDT Appointment [facility] 1 [address] [place] [address] 10/02/2024 8:00 AM EDT Appointment [facility] 1 [address] [place] [address] 10/03/2024 8:00 AM EDT Appointment [facility] 1 [address] [place] [address] 10/04/2024 8:00 AM EDT Appointment [facility] 1 [address] [place] [address] 10/05/2024 8:00 AM EDT Appointment [facility] 1 [address] [place] [address] 10/06/2024 8:00 AM EDT Appointment [facility] [address] [place] [address] documented as of this encounter Visit Diagnoses Not on filedocumented in this encounter Additional Health Concerns Assessment Noted Time A fall risk assessment has been complete d for the patient 07/30/2024 8:29 AM EDT A Body Mass Index follow-up plan has been documented for the patient 05/28/2024 1:52 PM EST documented as of this encounter Care Teams It Business Process Architect Relationship Specialty Start Date End Date Jevon Vazquez MD [address] [place] [address] [address] [place] [id number] PCP - General 03/23/22 documented as of this encounter
--- OUTSIDE RECORDS SUMMARY | 2024-09-22 08:58 | XMS_ITS | Encounter Summary ---
Author Organization [facility] Address [address] [place] [address] Care Team Providers Care Lithograph Designer Name Role Phone Jevon Vazquez MD Primary Care Provider [phone] Encounter Details Date Type Department Care Team ([facility] Contact Info) Description 07/30/2024 Telephone [facility] Hematology/BMT and Cellular Therapy Program [address] [place] [phone] Romana Richmond RN [facility] Social History Tobacco Use [...] Progress Notes - Romana Richmond RN - 07/30/2024 9:03 AM EDT RN received critical lab result from Lab: PLT 15. Primary nurse will be notified. documented in this encounter Plan of Treatment Upcoming Encounters Date Type Department Care Team ([facility] Contact Info) Description 09/30/2024 9:00 AM EDT Clinical Support [facility] Hematology/BMT and Cellular Therapy Program [address] [place] [address] 09/30/2024 9:30 AM EDT Office Visit [facility] Hematology/BMT and Cellular Therapy Program 750 [facility] [address] [place] [address] Zonia Hoffman, CHANNEL REBUILDER [address] [facility] [address] [place] [address] 09/30/2024 11:00 AM EDT Appointment [facility] 1 [address] [place] [address] 10/01/2024 8:30 AM EDT Appointment [facility] 1 [address] [place] [address] 10/02/2024 8:00 AM EDT Appointment [facility] 1 [address] [place] [address] 10/03/2024 8:00 AM EDT Appointment [facility] 1 [address] [place] [address] 10/04/2024 8:00 AM EDT Appointment [facility] 1 [address] [place] [address] 10/05/2024 8:00 AM EDT Appointment [facility] 1 [address] [place] [address] 10/06/2024 8:00 AM EDT Appointment [facility] [address] [place] [address] documented as of this encounter Visit Diagnoses Not on filedocumented in this encounter Additional Health Concerns Assessment Noted Time A fall risk assessment has been complete d for the patient 07/30/2024 8:29 AM EDT A Body Mass Index follow-up plan has been documented for the patient 05/28/2024 1:52 PM EST documented as of this encounter Care Teams Lithograph Designer Relationship Specialty Start Date End Date Jevon Vazquez MD [address] [place] [address] [address] [place] [address] PCP - General 03/23/22 documented as of this encounter
--- OUTSIDE RECORDS SUMMARY | 2024-09-22 08:58 | XMS_ITS | Encounter Summary ---
Author Organization Healthcare Address [address] [place] [address] Care Team Providers Care Educational Institution Curator Name Role Phone Jevon Vazquez MD Primary Care Provider [phone] Encounter Details Date Type Department Care Team (Latest Contact Info) Description 09/11/2024 Travel Social History Tobacco Use Types Packs/Day [...] Hematology/BMT and Cellular Therapy Program [address] [address] 09/30/2024 9:30 AM EDT Office Visit [facility] Hematology/BMT and Cellular Therapy Program [address] [address] Zonia Hoffman, ROOFING MACHINE TENDER 800 [facility] [place] [address] 09/30/2024 11:00 AM EDT Appointment [facility] 1 [address] [place] [address] 10/01/2024 8:30 AM EDT Appointment [facility] 1 [address] [place] [address] 10/02/2024 8:00 AM EDT Appointment [facility] 1 [address] [place] [address] 10/03/2024 8:00 AM EDT Appointment [facility] 1 [address] [place] [address] 10/04/2024 8:00 AM EDT Appointment [facility] 1 [address] [place] [address] 10/05/2024 8:00 AM EDT Appointment [facility] 1 [address] [place] [address] 10/06/2024 8:00 AM EDT Appointment [facility] 1 [address] [place] [address] documented as of this encounter Visit Diagnoses Not on filedocumented in this encounter Additional Health Concerns Assessment Noted Time A fall risk assessment has been complete d for the patient 07/30/2024 8:29 AM EDT A Body Mass Index follow-up plan has been documented for the patient 05/28/2024 1:52 PM EST documented as of this encounter Care Teams Educational Institution Curator Relationship Specialty Start Date End Date Jevon Vazquez MD [address] [place] [address] [address] [place] [address] PCP - General 03/23/22 documented as of this encounter
--- OUTSIDE RECORDS SUMMARY | 2024-09-22 08:58 | XMS_ITS | Clinical Summary ---
Author Organization [facility] Address [address] [place] [address] Care Team Providers Care Service Counselor Name Role Phone Jevon Vazquez MD Primary Care Provider [phone] Allergies No known active allergies Medications amLODIPine (Norvasc) 5 MG tablet Take 1 tablet (5 mg) by mouth daily. 02/19/20 22 Active pioglitazone (Actos) 30 MG tablet Take 1 tablet (30 mg) by mouth daily. Active fenofibrate (Tricor) 145 MG tablet Take 1 tablet (145 mg) by mouth daily. 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 30 tablet 5 01/21/20 24 Active venetoclax (Venclexta) 100 MG tablet Take 2 tablets (200 mg) by mouth 1 (one) time each day. Take on days 1 - 21 (7 days off) of a 28 day cycle. 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 60 tablet 2 07/31/19 25 Active fluconazole (Diflucan) 200 MG tabletIndicati ons:Immunosupp ressed status (CMS/HCC) Take 2 tablets by mouth daily. 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 30 tablet 2 07/31/19 25 Active potassium chloride CR (K-Tab) 20 MEQ ER tablet Take 1 tablet by mouth twice daily 60 tablet 09/13/19 25 Active potassium chloride CR (Klor-Con M20) 20 MEQ ER tablet Take 1 tablet (20 mEq) by mouth 2 (two) times a day. Do not crush or chew. 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) 09/19/2024 7:30 AM EDT Clinical Support [facility] Cellular Therapy [facility] [address] [phone] Arrived 09/19/2024 Telephone [facility] Therapy [facility] [address] [phone] Romana Richmond RN 09/19/2024 Orders Only [facility] [address] [phone] 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 RN 09/19/2024 Travel 09/15/2024 Telephone [facility] [address] [phone] Zonia Hoffman, C 13 CATAPULT OPERATOR 09/15/2024 Travel 09/14/2024 Travel 09/13/2024 Travel 09/12/2024 Travel 09/12/2024 Refill [facility] [address] [phone] New Mckinney MD 09/11/2024 Travel 09/10/2024 Travel 09/01/2024 Telephone [facility] [address] [phone] Zonia Hoffman, C 13 CATAPULT OPERATOR 08/31/2024 Travel 08/30/2024 Travel 08/18/2024 Telephone [facility] [address] [phone] Romana Gorman, C 13 CATAPULT OPERATOR 08/17/2024 Travel 08/16/2024 Travel 08/15/2024 Travel 08/13/2024 Travel 07/30/2024 8:30 AM EDT Office Visit [facility] Cellular Therapy [facility] [address] [phone] Zonia Hoffman, C 13 CATAPULT OPERATOR Pancytopenia (Primary Dx) 07/30/2024 8:00 AM EDT Clinical Support [facility] [address] [phone] Pancytopenia 07/30/2024 Telephone [facility] Therapy [facility] [address] [phone] Romana Richmond RN 07/30/2024 Refill [facility] Therapy [facility] [address] [phone] Daxa Elliott certified detention deputy 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); Immunosuppressed status (CMS/HCC) 07/30/2024 Travel 07/29/2024 Travel 07/28/2024 Travel 07/27/2024 Travel 07/26/2024 Travel 07/24/2024 Travel 07/23/2024 Travel 07/19/2024 Refill [facility] [address] [phone] Zonia Hoffman, C 13 CATAPULT OPERATOR 07/16/2024 9:00 AM EDT Office Visit [facility] Cellular Therapy Program [address] [place] [phone] Zonia Hoffman, C 13 CATAPULT OPERATOR Pancytopenia (Primary Dx); 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) 07/16/2024 8:30 AM EDT Clinical Support [facility] [address] [place] [phone] 07/16/2024 Travel 07/15/2024 Travel 07/15/2024 Telephone [facility] [address] [place] [phone] Zonia Hoffman, C 13 CATAPULT OPERATOR 07/14/2024 Travel 07/13/2024 Travel 07/12/2024 Travel 07/11/2024 Travel 07/10/2024 Travel 07/09/2024 Travel 07/01/2024 Travel 06/30/2024 Travel 06/29/2024 Travel 06/28/2024 Travel 06/27/2024 Travel 06/27/2024 Refill [facility] [address] [place] [phone] eNw Mckinney MD Immunosuppressed status (CMS/HCC) (Primary Dx) 06/25/2024 Travel from Last 3 Months Immunizations Immunization Administration Dates Next Due Influenza, High-dose, Split Virus, Trivalent, Injectable, preservative free 03/21/2024 Family History Medical History Relation Name Comments Heart Problem Brother Heart Problem Mother Relation Name Status Comments Brother Mother Social History Tobacco Use Types Packs/Day Years Used Date Smoking Tobacco: Never Passive Smoke Exposure: Never Smokeless Tobacco: Never Tobacco Cessation:Counseling Given: Not Answered Alcohol Use Standard Drinks/Week Comments Never 0 (1 standard drink = 0.6 oz pur e alcohol) PHQ-2 Answer Date Recorded Patient Health Questionnaire-2 Score 0 01/07/2024 Comments No Sex and Gender Information Value Date Recorded Sex Assigned at Not on file Legal Sex Female 8:22 PM EDT Gender Identity Not on file Sexual Orientation Not on file Last Filed Vital Signs Vital Sign Reading [...] 12.7 oz) 09/19/2024 8:37 AM EDT Height 162.6 cm (5' 4.02 ) 09/19/2024 8:03 AM ED T Body Mass Index 21.07 09/19/2024 8:03 AM EDT Plan of Treatment Upcoming Encounters Date Type Department Care Team ([facility] st Contact Info) Description 09/30/2024 9:00 AM EDT Clinical Support [facility]BMT [facility] Cellular Therapy Program [address] [phone] 09/30/2024 9:30 AM EDT Office Visit [facility] Cellular Therapy Program [address] [phone] Zonia Hoffman, C 13 CATAPULT OPERATOR [address] [facility] [address] [place] [phone] 09/30/2024 11:00 AM EDT Appointment [facility] [address] [place] [address] 10/01/2024 8:30 AM EDT Appointment [facility] [address] [place] [address] 10/02/2024 8:00 AM EDT Appointment [facility] [address] [place] [address] 10/03/2024 8:00 AM EDT Appointment [facility] [address] [place] [address] 10/04/2024 8:00 AM EDT Appointment [facility] [address] [place] [address] 10/05/2024 8:00 AM EDT Appointment [facility] [address] [place] [address] 10/06/2024 8:00 AM EDT Appointment [facility] [address] [place] [phone] Health Maintenance Due Date Last Done Comments [facility]-Medicare Annual Wellness (AWV) 1950 [facility]-Infant/Child/Adol SDOH Screenings 1950 [facility]- SDOH Screenings 1968 [facility]-Adult SDOH Screenings 1968 CT Colonography 11/04/1995 Colonoscopy 11/04/1995 FIT-DNA 11/04/1995 FIT 11/04/1995 FOBT 11/04/1995 Sigmoidoscopy 11/04/1995 [facility]-Colorectal Cancer Screening 11/04/1995 [facility]-Breast Cancer Screening 2000 [facility]-RSV Vaccine: 60+ Years or (1 - Risk 60-74 years 1-dose series) 2010 [facility]-Zoster Vaccines (1 of 2) 05/16/2023 03/21/2023 [id number] Vaccine ( season) 2023 02/18/2021, 07/10/2020, 06/12/2020 [facility]-Bone Density Scan 07/25/2024 07/25/2022, 023 [facility]-Depression Screening 01/06/2025 01/07/2024 [facility]-DTaP,Tdap,and Td Vaccines (2 - Td or Tdap) 03/18/2032 03/18/2022 [facility]-Pneumococcal Vaccine: 50+ Years Completed 09/07/2021, 01/21/2019, 01/18/2018 [facility]-Hepatitis C Screening Completed 01/07/2024 [facility]-Influenza Vaccine Completed 03/21/2024 , 03/21/2023, 02/10/2021, Additional history exists HPV Vaccines Aged Out No longer eligi ble based on patient's age to complete this topic [facility]-HIB Vaccines Aged Out No longer e ligible based on patient's age to complete this topic [facility]-Hepatitis A Vaccines Aged Out No longer eligible based on patient's age to complete this topic [facility]-IPV Vaccines Aged Out No longer e ligible based on patient's age to complete this topic [facility]-Rotavirus Vaccines Aged Out No lo nger eligible based on patient's age to complete this topic Medical Devices Implanted Type Area Phys Therapist Device Identifier Shelf Expiration Date Model / Serial / Lot Port Clearvue Power 8fr - [id number] Implanted:Qty: 1 on 01/21/2024 by Ness Sargent MD at [facility] [id number] / / Procedures Procedure Name Priority Date/Time Associated Diagnosis Comments BIOPSY BONE MARROW Routine 09/19/2024 12 :00 PM EDT 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) PLATELET COUNT, BLOOD STAT 09/19/2024 10:04 AM EDT PREPARE PLATELETS Routine 09/19/2024 9: 08 AM EDT CBC WITH AUTO DIFFERENTIAL Routine 09/19/2024 7:29 AM EDT 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) COMPREHENSIVE METABOLIC PANEL, PLASMA Routine 07/30/2024 8:14 AM EDT Pancytopenia CBC WITH AUTO DIFFERENTIAL Routine 07/30/2024 8:14 AM EDT Pancytopenia COMPREHENSIVE METABOLIC PANEL, PLASMA Routine 07/16/2024 8:30 AM EDT 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 Alternatives discussed: Delayed treatment [place] protocol: Procedure explained and questions answered to [...] at the site and an 11 gauge Sahareyshidi needle was inserted into the right posterior [...] CLINIC/BEDSIDE ORDERABL ES Final Result * (ABNORMAL) Platelet count (09/19/2024 10:04 AM EDT) Platelet Count 61(L) 155 - 369 10*3/uL LAB HEMATOLOGY METHOD 09/19/2024 10:19 AM EDT [facility] Blood Blood sample taken from central line / Unknown (Port) Long-term Catheter / Unknown 09/19/2024 10:04 AM EDT 09/19/2024 10:18 AM EDT New Mckinney MD LAB BLOOD ORDERABLES Final Re sult Performing Organization Address City/[facility] Co de Phone Number HEALTHCARE LAB [address] [place] [address] * Transfuse platelets, Irradiated (09/19/2024 10:02 AM EDT) Lexi Ferraro APRN BLOOD TRANSFUSION ORDERABL ES Final Result * Prepare Leukocyte Reduced Platelets (09/19/2024 9:08 AM EDT) Product Code [id number] CH BLOO D BANK Dispense Status Transfused BLOOD BANK Blood Expiration Date [id number] BLOOD BANK Unit Number [id number] CH B LOOD BANK Product Blood Type 6200 BLOOD BANK Blood Type A+ BLOOD BANK Provider Not In System BLOOD BANK PRODUCT ORD ERABLES Final Result Performing Organization Address [facility] Co de Phone Number BLOOD BANK [address] [place] [address], * (ABNORMAL) CBC and differential (09/19/2024 7:29 AM EDT) Only the most recent of3 resultswithin the time period is included. [facility] Signature WBC Count 2.70(L) 3.70 - 10.30 10*3/uL LAB HEMATOLOGY METHOD 09/19/2024 9:13 AM EDT [facility] RBC Count 1.86(L) 3.90 - 5.20 10*6/uL LAB HEMATOLOGY METHOD 09/19/2024 9:13 AM EDT [facility] HGB 7.1(L) 11.2 - 15.7 g/dL LAB HEMATOLOGY METHOD 09/19/2024 9:13 AM EDT [facility] HCT 21.5(L) 34.0 - 45.0 % LAB HEMATOLOGY METHOD 09/19/2024 9:13 AM EDT [facility] Platelet Count 14(LL) 155 - 369 10*3/uL LAB HEMATOLOGY METHOD 09/19/2024 9:13 AM EDT [facility] MCV 116(H) 79 - 98 fL LAB HEMATOLOGY METHOD 09/19/2024 9:13 AM EDT [facility] MCH 38.2(H) 26.0 - 32.0 pg LAB HEMATOLOGY METHOD 09/19/2024 9:13 AM EDT [facility] MCHC 33.0 30.7 - 35.5 g/dL LAB HEMATOLOGY METHOD 09/19/2024 9:13 AM EDT [facility] RDW 21.8(H) 11.5 - 14.5 % LAB HEMATOLOGY METHOD 09/19/2024 9:13 AM EDT [facility] MPV 13.5(H) 8.8 - 12.5 fL LAB HEMATOLOGY METHOD 09/19/2024 9:13 AM EDT [facility] nRBC 0.0 <=0.0 per 100 WBCs LAB HEMATOLOGY METHOD 09/19/2024 9:13 AM EDT [facility] Differential Type Automated LAB HEMATOLOGY METHOD 09/19/2024 9:13 AM EDT [facility] Neutrophils % 51 % LAB HEMATOLOGY METHOD 09/19/2024 9:13 AM EDT [facility] Lymphocytes % 41 % LAB HEMATOLOGY METHOD 09/19/2024 9:13 AM EDT [facility] Monocytes % 7 % LAB HEMATOLOGY METHOD 09/19/2024 9:13 AM EDT [facility] Eosinophils % 1 % LAB HEMATOLOGY METHOD 09/19/2024 9:13 AM EDT [facility] Basophils % 0 % LAB HEMATOLOGY METHOD 09/19/2024 9:13 AM EDT [facility] Immature Granulocytes % 0 % LAB HEMATOLOGY METHOD 09/19/2024 9:13 AM EDT [facility] Neutrophils Absolute 1.35(L) 1.60 - 6.10 10*3/uL LAB HEMATOLOGY METHOD 09/19/2024 9:13 AM EDT [facility] Lymphocytes Absolute 1.10(L) 1.20 - 3.90 10*3/uL LAB HEMATOLOGY METHOD 09/19/2024 9:13 AM EDT [facility] Monocytes Absolute 0.20(L) 0.30 - 0.90 10*3/uL LAB HEMATOLOGY METHOD 09/19/2024 9:13 AM EDT [facility] Eosinophils Absolute 0.03 0.00 - 0.50 10*3/uL LAB HEMATOLOGY METHOD 09/19/2024 9:13 AM EDT [facility] Basophils Absolute 0.01 0.00 - 0.10 10*3/uL LAB HEMATOLOGY METHOD 09/19/2024 9:13 AM EDT [facility] Immature Granulocytes Absolute 0.01 0.00 - 0.06 10*3/uL LAB HEMATOLOGY METHOD 09/19/2024 9:13 AM EDT [facility] Blood Blood sample taken from central line / Unknown (Port) Long-term Catheter / Unknown 09/19/2024 7:29 AM EDT 09/19/2024 8:08 AM EDT [facility]ARE [facility] - 09/19/2024 9:13 AM EDT Therapeutic decision making should be based on absolute values, rather than percentages. New Mckinney MD LAB BLOOD ORDERABLES Final Re sult [facility] [address] [place] [address] * (ABNORMAL) Comprehensive Metabolic Panel, Plasma (07/30/2024 8:14 AM EDT) Only the most recent of2 resultswithin the time period is included. Glucose, Plasma 142(H) 74 - 99 mg/dL 07/30/2024 8:56 AM EDT [facility] BUN, Plasma 24(H) 8 - 23 mg/dL 07/30/2024 8:56 AM EDT [facility] Creatinine, Plasma 1.06 0.60 - 1.10 mg/dL 07/30/2024 8:56 AM EDT [facility] BUN/Creatinine Ratio 23 07/30/2024 8:56 AM EDT [facility] Sodium, Plasma 140 136 - 145 mmol/L 07/30/2024 8:56 AM EDT [facility] Potassium, Plasma 4.1 3.6 - 4.9 mmol/L 07/30/2024 8:56 AM EDT [facility] Chloride, Plasma 107 97 - 107 mmol/L 07/30/2024 8:56 AM EDT [facility] CO2, Plasma 23 22 - 29 mmol/L 07/30/2024 8:56 AM EDT [facility] Anion Gap 10 6 - 16 mmol/L 07/30/2024 8:56 AM EDT [facility] Total Calcium, Plasma 9.9 8.9 - 10.2 mg/dL 07/30/2024 8:56 AM EDT [facility] Total Protein 6.1(L) 6.3 - 7.9 g/dL 07/30/2024 8:56 AM EDT [facility] Albumin, Plasma 3.7 3.5 - 5.2 g/dL 07/30/2024 8:56 AM EDT [facility] AST, Plasma 30 10 - 35 U/L 07/30/2024 8:56 AM EDT [facility] ALT, Plasma 11 10 - 35 U/L 07/30/2024 8:56 AM EDT [facility] Alkaline Phosphatase, Plasma 35(L) 46 - 142 U/L 07/30/2024 8:56 AM EDT [facility] Total Bilirubin, Plasma 0.3 0.2 - 1.1 mg/dL 07/30/2024 8:56 AM EDT [facility] eGFRcr 55.6 mL/min/1.7 3m*2 07/30/2024 8:56 AM EDT [facility] Comment:Reported eGFRcr in m L/min/1.73m2 is based the CKD-EPI 2020 equation that does not use a race coefficient. Blood Venous blood specimen / Unknown (Port) Long-term Catheter / Unknown 07/30/2024 8:14 AM EDT 07/30/2024 8:27 AM EDT us Zonia Hoffman APRN LAB BLOOD ORDERABLES Final Res ult Performing Organization Address City/[facility]/ZIP Co de Phone Number [facility] [address] [place] [address] * Hepatitis C Antibody w/Reflex to HCV Quant PCR (01/07/2024 8:42 AM EDT) Hepatitis C Antibody Negative Negative 01/07/2024 10:13 AM EDT [facility] Blood Venous blood specimen / Unknown Venipuncture / Unknown 01/07/2024 8:42 AM EDT 01/07/2024 9:25 AM EDT us New Mckinney MD LAB BLOOD ORDERABLES Final Re sult Performing Organization Address City/[facility]/ZIP Co de Phone Number [facility] [address] [place] [address] from Last 3 Months or Most Recently Relevant to Health Maintenance Insurance MEDICARE [facility] Care Teams Service Counselor Relationship Specialty Start Date End Date Jevon Vazquez MD [address] [place] [address] #1 #1 [place] [id number] PCP - General 03/23/22
--- OUTSIDE RECORDS SUMMARY | 2024-09-22 08:58 | XMS_ITS | Encounter Summary ---
Author Organization Healthcare Address [address] [place] [address] Care Team Providers Care Rf Design Engineer Name Role Phone Jevon Vazquez MD Primary Care Provider Encounter Details Date Type Department Care Team (Latest Contact Info) Description 07/28/2024 Travel Social History Tobacco Use Types Packs/Day [...] CC Hematology/BMT and Cellular Therapy Program [address] [phone] 09/30/2024 9:30 AM EDT Office Visit [facility]ology[facility]BMT [facility] Cellular Therapy Program [address] [phone] Zonia Hoffman, ONLINE MEDIA DIRECTOR 800 [facility] [place] [address] 09/30/2024 11:00 AM EDT Appointment [facility] [address] [place] [address] 10/01/2024 8:30 AM EDT Appointment [facility] [address] [place] [address] 10/02/2024 8:00 AM EDT Appointment [facility] [address] [place] [address] 10/03/2024 8:00 AM EDT Appointment [facility] [address] [place] [address] 10/04/2024 8:00 AM EDT Appointment [facility] [address] [place] [address] 10/05/2024 8:00 AM EDT Appointment [facility] [address] [place] [address] 10/06/2024 8:00 AM EDT Appointment [facility] [address] [place] [address] documented as of this encounter Visit Diagnoses Not on filedocumented in this encounter Additional Health Concerns Assessment Noted Time A fall risk assessment has been complete d for the patient 07/16/2024 8:54 AM EDT A Body Mass Index follow-up plan has been documented for the patient 05/28/2024 1:52 PM EST documented as of this encounter Care Teams Rf Design Engineer Relationship Specialty Start Date End Date Jevon Vazquez MD [address] [place] [address] #1 #1 [place] [address] PCP - General 03/23/22 documented as of this encounter
--- OUTSIDE RECORDS SUMMARY | 2024-09-22 08:58 | XMS_ITS | Encounter Summary ---
Author Organization Healthcare Address [address] [place] [address] Care Team Providers Care Deputy Director Of Finance Name Role Phone Jevon Vazquez MD Primary Care Provider [phone] Encounter Details Date Type Department Care Team ([facility] st Contact Info) Description 09/01/2024 Telephone [facility] Hematology/BMT and Cellular Therapy Program [address] [phone] Zonia Hoffman, FELL CUTTER 800 [facility] [address] [place] [phone] Social History Tobacco Use Types Packs/Day Years [...] Telephone Encounter - Shelly Pollock RN - 09/01/2024 12:37 PM EDT This RN received results. Plt 14 today. Delayed 2 weeks. Patient notified of new appointment * Telephone Encounter - Elizabet Paz - 09/01/2024 11:21 AM EDT Patient is calling to cancel upcoming appt and treatment. Stated her counts are low and provider told her to cancel. Please confirm Callback number:[phone] documented in this encounter Plan of Treatment Upcoming Encounters Date Type Department Care Team (Late st Contact Info) Description 09/30/2024 9:00 AM EDT Clinical Support [facility]ology/BMT and Cellular Therapy Program [address] [phone] 09/30/2024 9:30 AM EDT Office Visit [facility]ology/BMT and Cellular Therapy Program [address] [phone] Zonia Hoffman, FELL CUTTER 800 [facility] [address] [place] [phone] 09/30/2024 11:00 AM EDT Appointment [facility] [address] [place] [address] 10/01/2024 8:30 AM EDT Appointment [facility] [address] [place] [address] 10/02/2024 8:00 AM EDT Appointment [facility] [address] [place] [address] 10/03/2024 8:00 AM EDT Appointment [facility] [address] [place] [address] 10/04/2024 8:00 AM EDT Appointment [facility] [address] [place] [address] 10/05/2024 8:00 AM EDT Appointment [facility] [address] [place] [address] 10/06/2024 8:00 AM EDT Appointment [facility] [address] [place] [address] documented as of this encounter Visit Diagnoses Not on filedocumented in this encounter Additional Health Concerns Assessment Noted Time A fall risk assessment has been complete d for the patient 07/30/2024 8:29 AM EDT A Body Mass Index follow-up plan has been documented for the patient 05/28/2024 1:52 PM EST documented as of this encounter Care Teams Deputy Director Of Finance Relationship Specialty Start Date End Date Jevon Vazquez MD [address] [place] [address] #1 #1 [place] [phone] PCP - General 03/23/22 documented as of this encounter
--- OUTSIDE RECORDS SUMMARY | 2024-09-22 08:58 | XMS_ITS | Encounter Summary ---
Author Organization Healthcare Address [address] [place] [address] Care Team Providers Care Supervisor Laboratory Name Role Phone Jevon Vazquez MD Primary Care Provider [phone] Encounter Details Date Type Department Care Team (Latest Contact Info) Description 07/27/2024 Travel Social History Tobacco Use Types Packs/Day [...] Hematology/BMT and Cellular Therapy Program [address] [address] 09/30/2024 9:30 AM EDT Office Visit [facility] Hematology/BMT and Cellular Therapy Program [address] [address] Zonia Hoffman, BAG GRADER 800 [facility] [place] [address] 09/30/2024 11:00 AM EDT [facility]ointment [facility] 1 [address] [place] [address] 10/01/2024 8:30 AM EDT Appointment [facility] 1 [address] [place] [address] 10/02/2024 8:00 AM EDT Appointment [facility] 1 [address] [place] [address] 10/03/2024 8:00 AM EDT Appointment [facility] 1 [address] [place] [address] 10/04/2024 8:00 AM EDT Appointment [facility] 1 [address] [place] [address] 10/05/2024 8:00 AM EDT Appointment [facility] 1 [address] [place] [address] 10/06/2024 8:00 AM EDT Appointment [facility] 1 [address] [place] [address] documented as of this encounter Visit Diagnoses Not on filedocumented in this encounter Additional Health Concerns Assessment Noted Time A fall risk assessment has been complete d for the patient 07/16/2024 8:54 AM EDT A Body Mass Index follow-up plan has been documented for the patient 05/28/2024 1:52 PM EST documented as of this encounter Care Teams Supervisor Laboratory Relationship Specialty Start Date End Date Jevon Vazquez MD [address] [place] [address] [address]1 [address]1 [place] [address] PCP - General 03/23/22 documented as of this encounter
--- OUTSIDE RECORDS SUMMARY | 2024-09-22 08:59 | XMS_ITS | Clinical Summary ---
Author Organization [facility] Address [address] [place] [address] Care Team Providers Care Business Objects Developer Name Role Phone David Vazquez Primary Care Provider [phone] Allergies No known active allergies Medications atorvastatin (LIPITOR) 10 mg Tablet Take 10 mg by mouth daily. Active amLODIPine (NORVASC) 5 mg tablet Take 5 mg by mouth daily. Active pioglitazone (ACTOS) 30 mg Tablet Take 30 mg by mouth daily. Active fenofibrate (TRICOR) 145 mg Tablet Take 145 mg by mouth daily. Active CHOLECALCIFEROL , VITAMIN D3, PO Take 1 Capsule by mouth daily. Active cetirizine (ZyrTEC) 10 mg Tablet Take 10 mg by mouth daily as needed for Allergies. Active docusate sodium (COLACE) 100 mg capsule Take 1 Capsule (100 mg) by mouth 2 times daily. 02/01/2023 Active methocarbamoL (ROBAXIN) 750 mg tablet Take 1-2 Tablets (750-1,500 mg) by mouth every 8 hours as needed (muscle spasms, muscle pain). 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 01/11/2023 Family History Medical History Relation Name Comments Heart Problems Brother Heart Problems Mother Heart Problems Sister Anesthesia Complications Neg Hx Relation Name Status Comments Brother Mother Sister Social History Tobacco Use Types Packs/Day Years Used Date Smoking Tobacco: Never Smokeless Tobacco: Never Alcohol Use Standard Drinks/Week Comments Not Currently 0 (1 standard drink = 0.6 oz pur e alcohol) Comments Unknown Sex and Gender Information Value Date Recorded Sex Assigned at Not on file Legal Sex Female 8:12 AM EDT Gender Identity Not on file Sexual Orientation Not on file Last Filed Vital Signs Vital Sign Reading Time Taken Comments Blood Pressure 132/47 02/01/2023 11:36 AM EDT rn notified Pulse 83 02/01/2023 11:36 AM EDT Temperature 36.7 C (98.1 F) 02/01/2023 11:36 AM EDT Respiratory Rate 16 02/01/2023 11:3 6 AM EDT Oxygen Saturation 97% 02/01/2023 11: 36 AM EDT Inhaled Oxygen Concentration - - Weight 60.9 kg (134 lb 4.2 oz) 01/31/20 23 2:35 PM EDT Height 162.6 cm (5' 4 ) 01/30/2023 2:35 PM EDT Body Mass Index 23.05 01/30/2023 2:35 PM EDT Plan of Treatment Health Maintenance Due Date Last Done Comments Cologuard 1950 Colonoscopy 1950 Colorectal Cancer Screening 1950 Diabetes Mellitus Eye Exam (Yearly) 1950 Diabetes Mellitus Foot Care (Yearly) 1950 Diabetes Mellitus Microalbumin (Yearly) 1950 FIT 1950 Lipid Monitoring 11/04/1967 Tetanus Vaccination (Every 10 Years) 1968 Hepatitis C Virus (HCV) Screening 11/04/1971 Breast Cancer Screening 2000 Pneumococcal Vaccine: 50+ Years (1 of 1 - PCV) 001 Zoster-RZV(Shingrix) (1 of 2) 2000 Fall Risk Assessment 11/04/2015 Osteoporosis Screening 11/04/2015 Diabetes A1c Monitoring 07/26/2023 01/24/2023 COVID-19 Vaccine ( season) 2023 Renal Monitoring 01/25/2024 01/24/2023 Advance Care Planning 04/16/2024 Depression Screening 04/16/2024 Influenza Vaccination (Season Ended) 2024 RSV Vaccines (1 - 1-dose 75+ series) 2025 Medical Devices Implanted Type Area Pairer Device Identifier Shelf Expiration Date Model / Serial / Lot Mis Ply Scr 6.5x50mm - [id number] Implanted:Qty : 1 on 01/30/2023 by Ivan Bartholomew MD at [facility] Screw N/A: Spine Lumbar [employer] [id number] / / Mis Ply Scr 6.5x45mm - [id number] Implanted:Qty : 3 on 01/30/2023 by Ivan Bartholomew MD at [facility] Screw N/A: Spine Lumbar [employer] [id number] / / Reline Mas Reduction Screw 7.5x45 - [id number] Implanted:Qty : 2 on 01/30/2023 by Ivan Bartholomew MD at [facility] Screw N/A: Spine Lumbar [employer] [id number] / / Grft Dbm Vesuvius Putty 5cc - [id number] Implanted:Qty : 1 on 01/30/2023 by Ivan Bartholomew MD at [facility] [employer] [id number] 04/20/2025 [id number] P / [id number] / Putty I-Factor 5.0cc - [id number] Implanted:Qty : 1 on 01/30/2023 by Ivan Bartholomew MD at [facility] N/A: Spine Lumbar [employer] 03/15/2025 [id number] / / [id number] Modulus Xlw [id number] 10 Degree - [id number] Implanted:Qty : 1 on 01/30/2023 by Ivan Bartholomew MD at [facility] N/A: Spine Lumbar [employer] [id number] / / [id number] Modulus Xlw [id number] - [id number] Implanted:Qty : 1 on 01/30/2023 by Ivan Bartholomew MD at [facility] N/A: Spine Lumbar [employer] 09/28/2027 [id number] / / [id number] Reln Lock Scr 5.5mm Opn Tulip - [id number] Implanted:Qty : 6 on 01/30/2023 by Ivan Bartholomew MD at [facility] N/A: Spine Lumbar [employer] [id number] / / Reln Mas Ti Petar 5.5x70mm - [id number] Implanted:Qty : 2 on 01/30/2023 by Ivan Bartholomew MD at [facility] N/A: Spine Lumbar [employer] [id number] / / Procedures Procedure Name Priority Date/Time Associated Diagnosis Comments HGB, A1C (GLYCOHEMOGLOBIN) Routine 01/24/2023 2:32 PM EDT Neurogenic claudication due to lumbar spinal stenosis BASIC METABOLIC PANEL (BMP=EP1) Routine 01/24/2023 2:32 PM EDT Neurogenic claudication due to lumbar spinal stenosis from Last 3 Months or Most Recently Relevant to Health Maintenance Results * (ABNORMAL) HGB, A1C (GLYCOHEMOGLOBIN) (01/24/2023 2:32 PM EDT) Hgb A1C 6.0(H) 4.0 - 5.6 % [facility] Comment: Reference Ranges for Hgb A1c: Increased risk for diabetes: 5.7-6.4% Probable diabetes: >=6.5% Desired control for previously diagnosed diabetics: <7.0% Many conditions can affect the Hgb A1c value including hemolysis, recent transfusion, hemoglobin variants, thalassemias, severe chronic hepatic and renal disease and iron deficiency among others. Please note that results from this assay are invalid for patients with abnormal amounts of Hemoglobin (HbF). Results must be interpreted in the proper clinical context. This method is certified by the National Glycohemoglobin Standardization program (NGSP) and traceable to [facility]. Estimated Average Glucose 126(H) 68 - 114 mg/dL [facility] Whole Blood (Blood) 01/24/2023 2:32 PM EDT 01/24/2023 6:00 PM EDT us Ivan Bartholomew MD CHEMISTRY ORDERABLES Fin al Result [facility] [address] * (ABNORMAL) BASIC METABOLIC PANEL (BMP=EP1) (01/24/2023 2:32 PM EDT) Sodium 141 135 - 146 mmol/L [facility] Potassium 4.8 3.5 - 5.1 mmol/L [facility] Chloride 107 98 - 110 mmol/L [facility] CO2 24 22 - 29 mmol/L [facility] Anion Gap 10 5 - 13 mmol/L [facility] Comment:Anion gap calculatio n does not include potassium (K+) value. BUN 17 7 - 25 mg/dL [facility] Creatinine 1.20 0.50 - 1.20 mg/dL [facility] Glucose 125(H) 71 - 99 mg/dL [facility] Comment:Reference range (71- 99 mg/dL) refers only to fasting samples, and does not apply to non-fasting samples. eGFR CKD-EPI 2020 48 See Note [facility] Comment: eGFR calculated with 2020 CKD-EPI equation using creatinine, patient's age and gender. Other factors, especially muscle mass, may affect accuracy and need to be considered. Patient values should be interpreted as a trend. The reference interval is >60 mL/min/1.73m2. Calcium 10.3 8.5 - 10.5 mg/dL [facility] BUN/Creatinine Ratio 14 [facility] Serum 01/24/2023 2:32 PM EDT 01/24/2023 5:54 PM EDT us Lexi SUAREZ CHEMISTRY ORDERABLES Final Resu lt [facility] [address] from Last 3 Months or Most Recently Relevant to Health Maintenance Insurance MEDICARE PART A [facility] [address] [address] [place] [address] ANTH Advance Directives For more information, please contact: [phone] * Full Code (Latest Code Status on File) Date Activated Date Inactivated Comments 01/30/2023 9:13 AM No automated chest compression devices for [facility] Patients Care Teams Business Objects Developer Relationship Specialty Start Date End Date David Vazquez [address] [place] [id number] PCP - General 01/24/23
[2024-09-22 09:11] LABS: Basophils % 0.5 % (0.1-2.0); Eosinophils % 1.8 % (0.1-12.0); Hemoglobin 7.2 g/dL (12.2-16.2); Immature Granulocytes # 0.01 10^3uL; Immature Granulocytes % 0.5 %; Lymphocytes % 45.9 % (10-50); Mean Corpuscular HGB Conc 34.4 g/dL (31.8-35.4); Mean Corpuscular Hemoglobin 39.8 pg (27.0-31.2); Mean Corpuscular Volume 115.5 fl (81-99); Mean Platelet Volume 12.3 fl (7.4-10.4); Monocytes # 0.2 K/mm3 (0.1-1.0); Monocytes % 7.7 % (1.7-9.3); Neutrophils % 43.6 % (37.0-80.0); Nucleated Red Blood Cells # 0 10^3/uL; Nucleated Red Blood Cells % 0 %; Red Blood Count 1.81 M/mm3 (4.20-5.40); Red Cell Distribution Width 20.9 % (11.5-17.5); Red Cell Distribution Width-SD 83.8 fL; White Blood Count 2.2 K/mm3 (4.8-10.8)
[2024-09-22 09:13] LABS: Hematocrit 20.9 % (37.0-47.0); Platelet Count 31 K/mm3 (142-424)
[2024-09-22 09:17] LABS: Albumin Level 3.4 g/dl (3.5-5.0); Chloride 111 mmol/L (98-107); Potassium 3.6 mmoL/L (3.5-5.1); Sodium 139 mmol/L (136-145)
[2024-09-22 09:20] LABS: Alanine Aminotransferase 16 U/L (12-78); Albumin/Globulin Ratio 1.5 (1.1-1.8); Alkaline Phosphatase 43 U/L (38-126); Anion Gap 7.6 mEq/L (5-15); Aspartate Amino Transferase 33 U/L (14-36); Bilirubin,Total 0.3 mg/dl (0.2-1.3); Blood Urea Nitrogen 20 mg/dl (7-17); Calcium 9.5 mg/dl (8.4-10.2); Carbon Dioxide 24 mmol/L (22.0-30.0); Creatinine Clearance Estimated 46 mL/min (50-200); Estimated Glomerular Filt Rate 70 ml/min (>60); GFR (African American) 85 ML/MIN (>60); Globulin 2.2 g/dL (1.3-3.2); Glucose 142 mg/dl (74-100); Total Protein,Serum 5.6 g/dl (6.3-8.2)
[2024-09-22] MEDS: SODIUM CHLORIDE 0.9% 10ML FLUSH SYRINGE 10 ML IV (09:25)
== END 2024-09-22 09:25 | disposition home or self-care (01) ==
LOC: INF 08:53
PROVIDERS: PCP Family Medicine; Visit Provider Internal Medicine Medical Oncology
DX: C92.00 Acute myeloblastic leukemia, not having achieved remission (principal)
CPT/HCPCS: 36591; 80053; 85025; J1642

== ENCOUNTER 2024-09-24 09:00 | Outpatient (CLI) | payer MEDICARE, BC, SELFPAY ==
--- OUTSIDE RECORDS SUMMARY | 2024-07-30 08:00 | XMS_ITS | Encounter Summary ---
Author Organization [facility] Address [address] [place] [address] Care Team Providers Care Make Up Artist Name Role Phone Jevon Vazquez MD Primary Care Provider [phone] Reason for Visit * Reason Comments Labs Only Encounter Details Date Type Department Care Team ([facility] Contact Info) Description 07/30/2024 8:00 AM EDT Clinical Support [facility] Hematology/BMT and Cellular Therapy Program [address] [phone] Pancytopenia Social History Tobacco Use Types Packs/Day Years Used Date Smoking Tobacco: Never Passive Smoke Exposure: Never Smokeless Tobacco: Never Alcohol Use Standard Drinks/Week Comments Never 0 (1 standard drink = 0.6 oz pur e alcohol) PHQ-2 Answer Date Recorded Patient Health Questionnaire-2 Score 0 01/07/2024 Comments No Sex and Gender Information Value Date Recorded Sex Assigned at Not on file Legal Sex Female 8:22 PM EDT Gender Identity Not on file Sexual Orientation Not on file documented as of this encounter Plan of Treatment Upcoming Encounters Date Type Department Care Team ([facility] Contact Info) Description 09/30/2024 9:00 AM EDT Clinical Support [facility] Hematology/BMT and Cellular Therapy Program [address] [phone] 09/30/2024 9:30 AM EDT Office Visit [facility] Hematology/BMT and Cellular Therapy Program [address] [phone] Zonia Hoffman, INSERT OPERATOR 800 [facility] [address] [place] [phone] 09/30/2024 11:00 AM EDT Appointment [facility] [address] [place] [address] 10/01/2024 8:30 AM EDT Appointment [facility] [address] [place] [address] 10/02/2024 8:00 AM EDT Appointment [facility] [address] [place] [address] 10/03/2024 8:00 AM EDT Appointment [facility] [address] [place] [address] 10/04/2024 8:00 AM EDT Appointment [facility] Infusion Clinic [address] [place] [address] 10/05/2024 8:00 AM EDT Appointment [facility] Infusion Clinic [address] [place] [address] 10/06/2024 8:00 AM EDT Appointment [facility] Infusion Clinic [address] [place] [address] documented as of this encounter Procedures Procedure Name Priority Date/Time Associated Diagnosis Comments CBC WITH AUTO DIFFERENTIAL Routine 07/30/2024 8:14 AM EDT Pancytopenia COMPREHENSIVE METABOLIC PANEL, PLASMA Routine 07/30/2024 8:14 AM EDT Pancytopenia documented in this encounter Results * (ABNORMAL) Comprehensive Metabolic Panel, Plasma (07/30/2024 8:14 AM EDT) Glucose, Plasma 142(H) 74 - 99 mg/dL 07/30/2024 8:56 AM EDT [facility] BUN, Plasma 24(H) 8 - 23 mg/dL 07/30/2024 8:56 AM EDT [facility] Creatinine, Plasma 1.06 0.60 - 1.10 mg/dL 07/30/2024 8:56 AM EDT [facility] BUN/Creatinine Ratio 23 07/30/2024 8:56 AM EDT [facility] Sodium, Plasma 140 136 - 145 mmol/L 07/30/2024 8:56 AM EDT [facility] Potassium, Plasma 4.1 3.6 - 4.9 mmol/L 07/30/2024 8:56 AM EDT [facility] Chloride, Plasma 107 97 - 107 mmol/L 07/30/2024 8:56 AM EDT [facility] CO2, Plasma 23 22 - 29 mmol/L 07/30/2024 8:56 AM EDT [facility] Anion Gap 10 6 - 16 mmol/L 07/30/2024 8:56 AM EDT [facility] Total Calcium, Plasma 9.9 8.9 - 10.2 mg/dL 07/30/2024 8:56 AM EDT [facility] Total Protein 6.1(L) 6.3 - 7.9 g/dL 07/30/2024 8:56 AM EDT [facility] Albumin, Plasma 3.7 3.5 - 5.2 g/dL 07/30/2024 8:56 AM EDT [facility] AST, Plasma 30 10 - 35 U/L 07/30/2024 8:56 AM EDT [facility] ALT, Plasma 11 10 - 35 U/L 07/30/2024 8:56 AM EDT [facility] Alkaline Phosphatase, Plasma 35(L) 46 - 142 U/L 07/30/2024 8:56 AM EDT [facility] Total Bilirubin, Plasma 0.3 0.2 - 1.1 mg/dL 07/30/2024 8:56 AM EDT [facility] eGFRcr 55.6 mL/min/1.7 3m*2 07/30/2024 8:56 AM EDT [facility] Comment:Reported eGFRcr in m L/min/1.73m2 is based the CKD-EPI 2020 equation that does not use a race coefficient. Blood Venous blood specimen / Unknown (Port) Long-term Catheter / Unknown 07/30/2024 8:14 AM EDT 07/30/2024 8:27 AM EDT Zonia Hoffman APRN LAB BLOOD ORDERABLES Final Res ult [facility] [address] [place] [address] * (ABNORMAL) CBC and Differential (07/30/2024 8:14 AM EDT) WBC Count 2.68(L) 3.70 - 10.30 10*3/uL LAB HEMATOLOGY METHOD 07/30/2024 8:51 AM EDT [facility] RBC Count 2.24(L) 3.90 - 5.20 10*6/uL LAB HEMATOLOGY METHOD 07/30/2024 8:51 AM EDT [facility] HGB 7.2(L) 11.2 - 15.7 g/dL LAB HEMATOLOGY METHOD 07/30/2024 8:51 AM EDT [facility] HCT 21.3(L) 34.0 - 45.0 % LAB HEMATOLOGY METHOD 07/30/2024 8:51 AM EDT [facility] Platelet Count 15(LL) 155 - 369 10*3/uL LAB HEMATOLOGY METHOD 07/30/2024 8:51 AM EDT [facility] MCV 95 79 - 98 fL LAB HEMATOLOGY METHOD 07/30/2024 8:51 AM EDT [facility] MCH 32.1(H) 26.0 - 32.0 pg LAB HEMATOLOGY METHOD 07/30/2024 8:51 AM EDT [facility] MCHC 33.8 30.7 - 35.5 g/dL LAB HEMATOLOGY METHOD 07/30/2024 8:51 AM EDT [facility] RDW 23.2(H) 11.5 - 14.5 % LAB HEMATOLOGY METHOD 07/30/2024 8:51 AM EDT [facility] MPV 8.7(L) 8.8 - 12.5 fL LAB HEMATOLOGY METHOD 07/30/2024 8:51 AM EDT [facility] nRBC 0.0 <=0.0 per 100 WBCs LAB HEMATOLOGY METHOD 07/30/2024 8:51 AM EDT [facility] Differential Type Automated LAB HEMATOLOGY METHOD 07/30/2024 8:51 AM EDT [facility] Neutrophils % 48 % LAB HEMATOLOGY METHOD 07/30/2024 8:51 AM EDT [facility] Lymphocytes % 41 % LAB HEMATOLOGY METHOD 07/30/2024 8:51 AM EDT [facility] Monocytes % 10 % LAB HEMATOLOGY METHOD 07/30/2024 8:51 AM EDT [facility] Eosinophils % 1 % LAB HEMATOLOGY METHOD 07/30/2024 8:51 AM EDT [facility] Basophils % 0 % LAB HEMATOLOGY METHOD 07/30/2024 8:51 AM EDT [facility] Immature Granulocytes % 0 % LAB HEMATOLOGY METHOD 07/30/2024 8:51 AM EDT [facility] Neutrophils Absolute 1.25(L) 1.60 - 6.10 10*3/uL LAB HEMATOLOGY METHOD 07/30/2024 8:51 AM EDT [facility] Lymphocytes Absolute 1.11(L) 1.20 - 3.90 10*3/uL LAB HEMATOLOGY METHOD 07/30/2024 8:51 AM EDT [facility] Monocytes Absolute 0.28(L) 0.30 - 0.90 10*3/uL LAB HEMATOLOGY METHOD 07/30/2024 8:51 AM EDT [facility] Eosinophils Absolute 0.03 0.00 - 0.50 10*3/uL LAB HEMATOLOGY METHOD 07/30/2024 8:51 AM EDT [facility] Basophils Absolute 0.00 0.00 - 0.10 10*3/uL LAB HEMATOLOGY METHOD 07/30/2024 8:51 AM EDT [facility] Immature Granulocytes Absolute 0.01 0.00 - 0.06 10*3/uL LAB HEMATOLOGY METHOD 07/30/2024 8:51 AM EDT [facility] Blood Venous blood specimen / Unknown (Port) Long-term Catheter / Unknown 07/30/2024 8:14 AM EDT 07/30/2024 8:26 AM EDT Narrative [facility] - 07/30/2024 8:51 AM EDT Therapeutic decision making should be based on absolute values, rather than percentages. us Zonia Hoffman APRN LAB BLOOD ORDERABLES Final Res ult [facility] [address] [place] [address] documented in this encounter Visit Diagnoses Diagnosis Pancytopenia documented in this encounter Additional Health Concerns Assessment Noted Time A fall risk assessment has been complete d for the patient 07/30/2024 8:29 AM EDT A Body Mass Index follow-up plan has been documented for the patient 05/28/2024 1:52 PM EST documented as of this encounter Care Teams Make Up Artist Relationship Specialty Start Date End Date Jevon Vazquez MD [address] [place] [address] #1 #1 [place] [phone] PCP - General 03/23/22 documented as of this encounter
--- OUTSIDE RECORDS SUMMARY | 2024-07-30 08:30 | XMS_ITS | Encounter Summary ---
Author Organization Healthcare Address [address] [place] [address] Care Team Providers Care Status Controller Name Role Phone Jevon Vazquez MD Primary Care Provider [phone] Reason for Visit * Reason Comments Acute Myeloid Leukemia Encounter Details Date Type Department Care Team ([facility] st Contact Info) Description 07/30/2024 8:30 AM EDT Office Visit [facility] Hematology/BMT and Cellular Therapy Program [address] [phone] Zonia Hoffman, MITER GRINDER OPERATOR 800 [facility] 1st [place] [address] Pancytopenia (Primary Dx) Social History Tobacco Use [...] Notes * Progress Notes - Zonia Hoffman, MITER GRINDER OPERATOR - 07/30/2024 8:30 AM EDT HEMATOLOGY ONCOLOGY [...] k/??L. 12/2023- seen by Dr. Manzano in [facility] for evaluation of anemia and lymphocytosis. B12/folate [...] interphase cells examined show a deletion of [id number]. Next generation sequencing: Abnormal: TP53 (c.814G>A; p.[id number]) frequency 45%, DMNT3A (c.1522delC; p.[id number]) frequency 48%, RUNX1 (c.336_338delGCC; p.[id number]) frequency 35% Azacitidine + Venetoclax Cycle 1: [...] - Continue local lab checks MWF at [facility] Allogenic transplant planning. 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 However, given her older age > 70, she would benefit from a geriatric BMT program and will make referrals should she be interested. Expected pancytopenia related to chemotherapy/AML. Check CBC x 3 times/week at [facility] Labs reviewed today, Hgb 7.2 , platelets [...] charts, reviewing results, and documenting. RODDY Cristina [facility] HEMATOLOGY/BMT AND CELLULAR THERAPY PROGRAM 800 [facility] [address] 40 minutes was spent on this encounter; [...] Upcoming Encounters Date Type Department Care Team ([facility] st Contact Info) Description 09/30/2024 9:00 AM EDT Clinical Support [facility] Hematology/BMT and Cellular Therapy Program 750 [facility], [address] [place] [address] 09/30/2024 9:30 AM EDT Office Visit [facility] CC Hematology/BMT and Cellular Therapy Program [address], [address] [place] [address] Zonia Hoffman, MITER GRINDER OPERATOR [address] [facility] [address] [place] [address] 09/30/2024 11:00 AM EDT Appointment [facility] 1 [address] [place] [address] 10/01/2024 8:30 AM EDT Appointment [facility] 1 [address] [place] [address] 10/02/2024 8:00 AM EDT Appointment [facility] 1 [address] [place] [address] 10/03/2024 8:00 AM EDT Appointment [facility] 1 [address] [place] [address] 10/04/2024 8:00 AM EDT Appointment [facility] 1 [address] [place] [address] 10/05/2024 8:00 AM EDT Appointment [facility] Infusion Clinic 1 [address] [place] [address] 10/06/2024 8:00 AM EDT Appointment [facility] Infusion Clinic 1 [address] [place] [address] documented as of this encounter Results * (ABNORMAL) Comprehensive Metabolic Panel, Plasma (07/30/2024 8:14 AM EDT) [facility] Glucose, Plasma 142(H) 74 - 99 mg/dL 07/30/2024 8:56 AM EDT [facility] BUN, Plasma 24(H) 8 - 23 mg/dL 07/30/2024 8:56 AM EDT [facility] Creatinine, Plasma 1.06 0.60 - 1.10 mg/dL 07/30/2024 8:56 AM EDT [facility] BUN/Creatinine Ratio 23 07/30/2024 8:56 AM EDT [facility] Sodium, Plasma 140 136 - 145 mmol/L 07/30/2024 8:56 AM EDT [facility] Potassium, Plasma 4.1 3.6 - 4.9 mmol/L 07/30/2024 8:56 AM EDT [facility] Chloride, Plasma 107 97 - 107 mmol/L 07/30/2024 8:56 AM EDT [facility] CO2, Plasma 23 22 - 29 mmol/L 07/30/2024 8:56 AM EDT [facility] Anion Gap 10 6 - 16 mmol/L 07/30/2024 8:56 AM EDT [facility] Total Calcium, Plasma 9.9 8.9 - 10.2 mg/dL 07/30/2024 8:56 AM EDT [facility] Total Protein 6.1(L) 6.3 - 7.9 g/dL 07/30/2024 8:56 AM EDT [facility] Albumin, Plasma 3.7 3.5 - 5.2 g/dL 07/30/2024 8:56 AM EDT [facility] AST, Plasma 30 10 - 35 U/L 07/30/2024 8:56 AM EDT [facility] ALT, Plasma 11 10 - 35 U/L 07/30/2024 8:56 AM EDT [facility] Alkaline Phosphatase, Plasma 35(L) 46 - 142 U/L 07/30/2024 8:56 AM EDT [facility] Total Bilirubin, Plasma 0.3 0.2 - 1.1 mg/dL 07/30/2024 8:56 AM EDT [facility] eGFRcr 55.6 mL/min/1.7 3m*2 07/30/2024 8:56 AM EDT [facility] Comment:Reported eGFRcr in m L/min/1.73m2 is based the CKD-EPI 2020 equation that does not use a race coefficient. Blood Venous blood specimen / Unknown (Port) Long-term Catheter / Unknown 07/30/2024 8:14 AM EDT 07/30/2024 8:27 AM EDT us Zonia Hoffman APRN LAB BLOOD ORDERABLES Final Res ult [facility] [address] [place] [address] * (ABNORMAL) CBC and Differential (07/30/2024 8:14 AM EDT) WBC Count 2.68(L) 3.70 - 10.30 10*3/uL LAB HEMATOLOGY METHOD 07/30/2024 8:51 AM EDT [facility] RBC Count 2.24(L) 3.90 - 5.20 10*6/uL LAB HEMATOLOGY METHOD 07/30/2024 8:51 AM EDT [facility] HGB 7.2(L) 11.2 - 15.7 g/dL LAB HEMATOLOGY METHOD 07/30/2024 8:51 AM EDT [facility] HCT 21.3(L) 34.0 - 45.0 % LAB HEMATOLOGY METHOD 07/30/2024 8:51 AM EDT [facility] Platelet Count 15(LL) 155 - 369 10*3/uL LAB HEMATOLOGY METHOD 07/30/2024 8:51 AM EDT [facility] MCV 95 79 - 98 fL LAB HEMATOLOGY METHOD 07/30/2024 8:51 AM EDT [facility] MCH 32.1(H) 26.0 - 32.0 pg LAB HEMATOLOGY METHOD 07/30/2024 8:51 AM EDT [facility] MCHC 33.8 30.7 - 35.5 g/dL LAB HEMATOLOGY METHOD 07/30/2024 8:51 AM EDT [facility] RDW 23.2(H) 11.5 - 14.5 % LAB HEMATOLOGY METHOD 07/30/2024 8:51 AM EDT [facility] MPV 8.7(L) 8.8 - 12.5 fL LAB HEMATOLOGY METHOD 07/30/2024 8:51 AM EDT [facility] nRBC 0.0 <=0.0 per 100 WBCs LAB HEMATOLOGY METHOD 07/30/2024 8:51 AM EDT [facility] Differential Type Automated LAB HEMATOLOGY METHOD 07/30/2024 8:51 AM EDT [facility] Neutrophils % 48 % LAB HEMATOLOGY [...] LAB HEMATOLOGY METHOD 07/30/2024 8:51 AM EDT [facility] Neutrophils Absolute 1.25(L) 1.60 - 6.10 10*3/uL LAB HEMATOLOGY METHOD 07/30/2024 8:51 AM EDT [facility] Lymphocytes Absolute 1.11(L) 1.20 - 3.90 10*3/uL LAB HEMATOLOGY METHOD 07/30/2024 8:51 AM EDT [facility] Monocytes Absolute 0.28(L) 0.30 - 0.90 10*3/uL LAB HEMATOLOGY METHOD 07/30/2024 8:51 AM EDT [facility] Eosinophils Absolute 0.03 0.00 - 0.50 10*3/uL LAB HEMATOLOGY METHOD 07/30/2024 8:51 AM EDT [facility] Basophils Absolute 0.00 0.00 - 0.10 10*3/uL LAB HEMATOLOGY METHOD 07/30/2024 8:51 AM EDT [facility] Immature Granulocytes Absolute 0.01 0.00 - 0.06 10*3/uL LAB HEMATOLOGY METHOD 07/30/2024 8:51 AM EDT [facility] Blood Venous blood specimen / Unknown (Port) Long-term Catheter / Unknown 07/30/2024 8:14 AM EDT 07/30/2024 8:26 AM EDT Narrative [facility] - 07/30/2024 8:51 AM EDT Therapeutic decision making should be based on absolute values, rather than percentages. us Zonia Hoffman APRN LAB BLOOD ORDERABLES Final Res ult [facility] [address] [place] [address] documented in this encounter Visit Diagnoses Diagnosis Pancytopenia- Primary documented in this encounter Additional Health Concerns Assessment Noted Time A fall risk assessment has been complete d for the patient 07/30/2024 8:29 AM EDT A Body Mass Index follow-up plan has been documented for the patient 05/28/2024 1:52 PM EST documented as of this encounter Care Teams Status Controller Relationship Specialty Start Date End Date Jevon Vazquez MD [address] [place] [address] #1 #1 [place] [address] PCP - General 03/23/22 documented as of this encounter
--- OUTSIDE RECORDS SUMMARY | 2024-09-19 07:30 | XMS_ITS | Encounter Summary ---
Author Organization [facility] Address [address] [place] [address] Care Team Providers Care Pellet Preparation Operator Name Role Phone Jevon Vazquez MD Primary Care Provider [phone] Reason for Visit * Reason Comments Nurse Visit Encounter Details Date Type Department Care Team ([facility] Contact Info) Description 09/19/2024 7:30 AM EDT Clinical Support [facility] Hematology/BMT and Cellular Therapy Program [address] [phone] Social History Tobacco Use Types Packs/Day Years [...] Upcoming Encounters Date Type Department Care Team ([facility] Contact Info) Description 09/30/2024 9:00 AM EDT Clinical Support [facility] Hematology/BMT and Cellular Therapy Program [address] [phone] 09/30/2024 9:30 AM EDT Office Visit [facility] Hematology/BMT and Cellular Therapy Program [address] [phone] Zonia Hoffman, BUTCHER'S ASSISTANT 800 [facility] [address] [place] [address] 09/30/2024 11:00 AM EDT Appointment [facility] 1 [address] [place] [address] 10/01/2024 8:30 AM EDT Appointment [facility] 1 [address] [place] [address] 10/02/2024 8:00 AM EDT Appointment [facility] 1 [address] [place] [address] 10/03/2024 8:00 AM EDT Appointment [facility] 1 [address] [place] [address] 10/04/2024 8:00 AM EDT Appointment [facility] 1 [address] [place] [address] 10/05/2024 8:00 AM EDT Appointment [facility] 1 [address] [place] [address] 10/06/2024 8:00 AM EDT Appointment [facility] 1 [address] [place] [address] documented as of this encounter Visit Diagnoses Not on filedocumented in this encounter Additional Health Concerns Assessment Noted Time A fall risk assessment has been complete d for the patient 09/19/2024 8:38 AM EDT A Body Mass Index follow-up plan has been documented for the patient 05/28/2024 1:52 PM EST documented as of this encounter Care Teams Pellet Preparation Operator Relationship Specialty Start Date End Date Jevon Vazquez MD [address] [place] [address] #1 #1 [place] [address] PCP - General 03/23/22 documented as of this encounter
--- OUTSIDE RECORDS SUMMARY | 2024-09-19 09:30 | XMS_ITS | Encounter Summary ---
Author Organization Healthcare Address [address] [place] [address] Care Team Providers Care Oyster Culturist Name Role Phone Jevon Vazquez MD Primary Care Provider [phone] Reason for Visit * Reason Comments Follow-up Encounter Details Date Type Department Care Team (Latest Contact Info) Description 09/19/2024 9:30 AM EDT Clinical Support [facility] Cancer Acute Treatment Clinic [address] [place] [address] Acute myeloid leukemia not having achieved remission [...] Upcoming Encounters Date Type Department Care Team ([facility] st Contact Info) Description 09/30/2024 9:00 AM EDT Clinical Support [facility] Hematology/BMT and Cellular Therapy Program [address] [place] [address] 09/30/2024 9:30 AM EDT Office Visit [facility] Hematology/BMT and Cellular Therapy Program [address] [address] Zonia Hoffman, GERMAN PROFESSOR 800 [facility] [address] [place] [address] 09/30/2024 11:00 AM EDT Appointment [facility] Infusion [facility] 1 [address] [place] [address] 10/01/2024 8:30 AM EDT Appointment [facility] 1 [address] [place] [address] 10/02/2024 8:00 AM EDT Appointment [facility] 1 [address] [place] [address] 10/03/2024 8:00 AM EDT Appointment [facility] 1 [address] [place] [address] 10/04/2024 8:00 AM EDT Appointment [facility] Infusion Clinic 1 [address] [place] [address] 10/05/2024 8:00 AM EDT Appointment [facility] Infusion Clinic 1 [address] [place] [address] 10/06/2024 8:00 AM EDT Appointment [facility] Infusion Clinic 1 [address] [place] [address] documented as of this encounter Procedures Procedure Name Priority Date/Time Associated Diagnosis Comments PLATELET COUNT, BLOOD STAT 09/19/2024 10:04 AM EDT PREPARE PLATELETS Routine 09/19/2024 9:0 8 AM EDT documented in this encounter Results * (ABNORMAL) Platelet count (09/19/2024 10:04 AM EDT) Platelet Count 61(L) 155 - 369 10*3/uL LAB HEMATOLOGY METHOD 09/19/2024 10:19 AM EDT [facility] Blood Blood sample taken from central line / Unknown (Port) Long-term Catheter / Unknown 09/19/2024 10:04 AM EDT 09/19/2024 10:18 AM EDT us New Mckinney MD LAB BLOOD ORDERABLES Final Re sult [facility] [address] [place] [address] * Transfuse platelets, Irradiated (09/19/2024 10:02 AM EDT) us Lexi Ferraro APRN BLOOD TRANSFUSION ORDERABL ES Final Result * Prepare Leukocyte Reduced Platelets (09/19/2024 9:08 AM EDT) Product Code [id number] CH BLOO D BANK Dispense Status Transfused BLOOD BANK Blood Expiration Date [id number] BLOOD BANK Unit Number [id number] CH B LOOD BANK Product Blood Type 6200 BLOOD BANK Blood Type A+ BLOOD BANK us Provider Not In System BLOOD BANK PRODUCT ORD ERABLES Final Result BLOOD BANK [address] [place] [address], documented in this encounter Visit Diagnoses Diagnosis [...] documented as of this encounter Care Teams Oyster Culturist Relationship Specialty Start Date End Date Jevon Vazquez MD [address] [place] [address] #1 [address]1 [place] [address] PCP - General 03/23/22 documented as of this encounter
--- OUTSIDE RECORDS SUMMARY | 2024-09-19 12:00 | XMS_ITS | Encounter Summary ---
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) Procedures Leukemia/Lymphoma - Immunophenotyping by Flow Cytometry New Mckinney MD 800 [facility] Cancer [address] [address] Phone: tel: fax: Referral ID Status Reason Start Date Expiration Date V isits Requested Visits Authorized [id number] Authorized 09/11/2024 03/13/2026 1 1 Encounter Details Date Type Department Care Team (Latest Contact Info) Description 09/19/2024 12:00 PM EDT Procedure Visit [facility] Hematology/BMT and Cellular Therapy Program [address] [address] Lexi Ferraro, RODDY 800 [facility] Cancer [address] [address] Acute myeloid leukemia not having [...] encounter Miscellaneous Notes * Progress Notes - Leix Ferraro APRN - 09/19/2024 12:00 PM EDTAssociated [...] to surronding structures. Alternatives discussed: Delayed treatment [place] protocol: Procedure explained and questions answered to [...] Upcoming Encounters Date Type Department Care Team ([facility] st Contact Info) Description 09/30/2024 9:00 AM EDT Clinical Support [facility] Hematology/BMT and Cellular Therapy Program [address] [address] 09/30/2024 9:30 AM EDT Office Visit [facility] Hematology/BMT and Cellular Therapy Program [address] [address] Zonia Hoffman APRN 800 [facility]tr [address] [place] [address] 09/30/2024 11:00 AM EDT Appointment [facility] Infusion Clinic [address] [place] [address] 10/01/2024 8:30 AM EDT Appointment [facility] Infusion Clinic [address] [place] [address] 10/02/2024 8:00 AM EDT Appointment [facility] Infusion Clinic [address] [place] [address] 10/03/2024 8:00 AM EDT Appointment [facility] [address] [place] [address] 10/04/2024 8:00 AM EDT Appointment [facility] [address] [place] [address] 10/05/2024 8:00 AM EDT Appointment [facility] [address] [place] [address] 10/06/2024 8:00 AM EDT Appointment [facility] [address] [place] [address] Pending Results Name Type Priority Associated Diagnoses Date /Time Myeloid Focused Panel, 50 gene Lab Routine 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 Alternatives discussed: Delayed treatment [place] protocol: Procedure explained and questions answered to [...] IN CLINIC/BEDSIDE ORDERABL ES Final Result * Leukemia/Lymphoma - Immunophenotyping by Flow Cytometry (09/19/2024 7:29 AM EDT) Clinical Indication AML 09/22/2024 10:29 AM EDT [facility] Flow Cytometry Interpretation A. BONE MARROW FOR FLOW CYTOMETRY: - MIXED MARROW ELEMENTS WITH NO EVIDENCE OF INCREASED BLASTS OR ABNORMAL LYMPHOID POPULATIONS, SEE COMMENT. 09/22/2024 10:29 AM EDT [facility] Comments CD45/side scatter analysis shows [...] surface light chains 09/22/2024 10:29 AM EDT [facility] Disclaimer This test was developed and its performance characteristics determined by the Immuno-Molecular Pathology Laboratory at the [facility]. It has not been cleared or [...] on the report. 09/22/2024 10:29 AM EDT [facility] Pathologist Signature Reviewed by: Lisandra Epstein MD 09/22/2024 10:29 AM EDT [facility] MRD Indicated Test Not Indicated 12/2024 10:29 AM EDT [facility] Bone Marrow Specimen from bone marrow obtained by aspiration / Unknown Non-blood Collection / Unknown 09/19/2024 7:29 AM EDT 09/19/2024 12:13 PM EDT us New Mckinney MD LAB FLOW CYTOMETRY ORDERABLES Final Result [facility] [address] [place] [address] * (ABNORMAL) CBC and differential (09/19/2024 7:29 [...] 09/19/2024 9:13 AM EDT [facility] Eosinophils % 1 % LAB [...] MD LAB BLOOD ORDERABLES Final Re sult [facility] [address] [place] [address] * Bone marrow exam (09/19/2024 7:29 AM EDT) Case Report Bone Marrow Case: [id number] Authorizing Provider: New Mckinney MD Collected: 09/19/2024 0729 Ordering Location: [facility] Hematology/BMT and Received: 09/19/2024 1216 Cellular Therapy Program Pathologist: Lisandra Epstein MD Specimens: A) - Bone Marrow Aspirate, right B) - Bone Marrow Biopsy, right C) - Peripheral Blood for Bone Marrow 2:53 PM EDT [facility] Final Diagnosis PERIPHERAL BLOOD AND BONE MARROW, RIGHT POSTERIOR ILIAC CREST, (ASPIRATE SMEAR, AND CORE BIOPSY): - HYPOCELLULAR BONE MARROW WITH MARKEDLY DECREASED MEGAKARYOCYTES; NO SIGNIFICANT DYSPOIESIS OR INCREASE IN BLASTS. 2:53 PM EDT [facility] at 1453 EDT Clinical Information AML 2:53 PM EDT [facility] CBC and Differential PERIPHERAL [...] severe thrombocytopenia. Circulating blasts are not seen. 2:53 PM EDT [facility] Bone Marrow Differential BONE MARROW DIFFERENTIAL: 200 cells Normal Patient Neutrophils 15-50 34 Metamyelocytes 4-19 3 Myelocytes 1-18 10 Promyelocytes 1-8 1 Blasts 0-2 1 Monocytes 0-5 4 Erythroid 16-38 22 Lymphocytes 3-24 13 Eosinophils 0-6 8 Basophils 0-2 0 Plasma cells 0-4 4 Other 2:53 PM EDT [facility] Bone Marrow Aspirate and [...] granulomas are identified. Bone trabeculae are unremarkable. 2:53 PM EDT [facility] Special and Immunohistochemical Stains Special Stain: A1-1 Vazquez-Giemsa A1-2 Vazquez-Giemsa A1-3 Vazquez-Giemsa C1-1 Vazquez-Giemsa IHC: B1-2 CD34 All controls show appropriate reactivity. All immunohistochemis try, in situ hybridization, and histochemical tests were developed by and are performed at the [facility], [address] [place] [address]. All tests reported here, except those addressing [...] likelihood of false negativity on decalcified specimens. 2:53 PM EDT [facility] Flow Cytometry Interpretation MIXED MARROW ELEMENTS WITH NO EVIDENCE OF INCREASED BLASTS OR ABNORMAL LYMPHOID POPULATIONS ([id number]). 2:53 PM EDT [facility] CYTOGENETICS/MOLECULA R INTERPRETATION Correlation with cytogenetic/molec ular analysis is suggested. 2:53 PM EDT [facility] Gross Description B. RIGHT A single specimen is received in formalin labeled bone marrow biopsy right posterior iliac crest and consists of 2 piece(s) of red/white tissue measuring 2.1/0.3 cm in length 0.2 cm in diameter. The specimen is submitted in to Histology for decalcification and routine processing. Cold Time: <1m 2:53 PM EDT [facility] Note: A resident was involved in the service. I attest I examined the relevant preparations for the specimens and confirmed the diagnosis or interpretation. 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
[2024-09-24 09:06] VITALS: BMI 21.8
--- OUTSIDE RECORDS SUMMARY | 2024-09-24 09:08 | XMS_ITS | Encounter Summary ---
Author Organization Healthcare Address [address] [place] [address] Care Team Providers Care Hospital Manager Name Role Phone Jevon Vazquez MD Primary Care Provider [phone] Encounter Details Date Type Department Care Team [...] Hematology/BMT and Cellular Therapy Program [address] [address] 09/30/2024 9:30 AM EDT Office Visit [facility] Hematology/BMT and Cellular Therapy Program [address] [address] Zonia Hoffman, TIRE AND TUBE REPAIRER 800 [facility] [address] [place] [address] 09/30/2024 11:00 AM EDT Appointment [facility] 1 [address] [place] [address] 10/01/2024 8:30 AM EDT Appointment [facility] 1 [address] [place] [address] 10/02/2024 8:00 AM EDT Appointment [facility] 1 [address] [place] [address] 10/03/2024 8:00 AM EDT Appointment [facility] 1 [address] [place] [address] 10/04/2024 8:00 AM EDT Appointment [facility] 1 [address] [place] [address] 10/05/2024 8:00 AM EDT Appointment [facility] 1 [address] [place] [address] 10/06/2024 8:00 AM EDT Appointment [facility] 1 [address] [place] [address] documented as of this encounter Visit Diagnoses Not on filedocumented in this encounter Additional Health Concerns Assessment Noted Time A fall risk assessment has been complete d for the patient 09/19/2024 8:38 AM EDT A Body Mass Index follow-up plan has been documented for the patient 05/28/2024 1:52 PM EST documented as of this encounter Care Teams Hospital Manager Relationship Specialty Start Date End Date Jevon Vazquez MD [address] [place] [address] [address]1 [address]1 [place] [address] PCP - General 03/23/22 documented as of this encounter
--- OUTSIDE RECORDS SUMMARY | 2024-09-24 09:08 | XMS_ITS | Encounter Summary ---
Author Organization [facility] Address [address] [place] [address] Care Team Providers Care Van Helper Name Role Phone Jevon Vazquez MD Primary Care Provider [phone] Encounter Details Date Type Department Care Team ([facility] Contact Info) Description 09/15/2024 Telephone [facility] Hematology/BMT and Cellular Therapy Program [address] [phone] Zonia Hoffman, SUPPLY CHAIN DEVELOPMENT MANAGER 800 [facility] [address] [place] [address] Social History Tobacco Use Types Packs/Day Years [...] Upcoming Encounters Date Type Department Care Team ([facility] Contact Info) Description 09/30/2024 9:00 AM EDT Clinical Support [facility] Hematology/BMT and Cellular Therapy Program [address] [place] [phone] 09/30/2024 9:30 AM EDT Office Visit [facility] Hematology/BMT and Cellular Therapy Program [address] [phone] Zonia Hoffman, SUPPLY CHAIN DEVELOPMENT MANAGER 800 [facility] [address] [place] [address] 09/30/2024 11:00 AM EDT Appointment [facility] 1 [address] [place] [address] 10/01/2024 8:30 AM EDT Appointment [facility] 1 [address] [place] [address] 10/02/2024 8:00 AM EDT Appointment [facility] 1 [address] [place] [address] 10/03/2024 8:00 AM EDT Appointment [facility] 1 [address] [place] [address] 10/04/2024 8:00 AM EDT Appointment [facility] 1 [address] [place] [address] 10/05/2024 8:00 AM EDT Appointment [facility] 1 [address] [place] [address] 10/06/2024 8:00 AM EDT Appointment [facility] 1 [address] [place] [address] documented as of this encounter Visit Diagnoses Not on filedocumented in this encounter Additional Health Concerns Assessment Noted Time A fall risk assessment has been complete d for the patient 07/30/2024 8:29 AM EDT A Body Mass Index follow-up plan has been documented for the patient 05/28/2024 1:52 PM EST documented as of this encounter Care Teams Van Helper Relationship Specialty Start Date End Date Jevon Vazquez MD [address] [place] [address] #1 #1 [place] [address] PCP - General 03/23/22 documented as of this encounter
--- OUTSIDE RECORDS SUMMARY | 2024-09-24 09:08 | XMS_ITS | Encounter Summary ---
Author Organization Healthcare Address [address] [place] [address] Care Team Providers Care Railroad Operating Engineer Name Role Phone Jevon Vazquez MD Primary Care Provider [phone] Encounter Details Date Type Department Care Team [...] Hematology/BMT and Cellular Therapy Program [address] [address] 09/30/2024 9:30 AM EDT Office Visit [facility] Hematology/BMT and Cellular Therapy Program [address] [address] Zonia Hoffman, HAND CIGAR MAKING SUPERVISOR 800 [facility] [address] [place] [address] 09/30/2024 11:00 AM EDT Appointment [facility] 1 [address] [place] [address] 10/01/2024 8:30 AM EDT Appointment [facility] 1 [address] [place] [address] 10/02/2024 8:00 AM EDT Appointment [facility] 1 [address] [place] [address] 10/03/2024 8:00 AM EDT Appointment [facility] 1 [address] [place] [address] 10/04/2024 8:00 AM EDT Appointment [facility] 1 [address] [place] [address] 10/05/2024 8:00 AM EDT Appointment [facility] 1 [address] [place] [address] 10/06/2024 8:00 AM EDT Appointment [facility] 1 [address] [place] [address] documented as of this encounter Visit Diagnoses Not on filedocumented in this encounter Additional Health Concerns Assessment Noted Time A fall risk assessment has been complete d for the patient 07/30/2024 8:29 AM EDT A Body Mass Index follow-up plan has been documented for the patient 05/28/2024 1:52 PM EST documented as of this encounter Care Teams Railroad Operating Engineer Relationship Specialty Start Date End Date Jevon Vazquez MD [address] [place] [address] #1 [address] [place] [address] PCP - General 03/23/22 documented as of this encounter
--- OUTSIDE RECORDS SUMMARY | 2024-09-24 09:08 | XMS_ITS | Encounter Summary ---
Author Organization Healthcare Address [address] [place] [address] Care Team Providers Care Transformation Coach Name Role Phone Jevon Vazquez MD Primary Care Provider [phone] Encounter Details Date Type Department Care Team [...] CC Hematology/BMT and Cellular Therapy Program [address] [address] 09/30/2024 9:30 AM EDT Office Visit [facility] Hematology/BMT and Cellular Therapy Program [address] [address] Zonia Hoffman, IN FLIGHT REFUELING CRAFTSMAN 800 [facility] [address] [place] [address] 09/30/2024 11:00 AM EDT Appointment [facility] 1 [address] [place] [address] 10/01/2024 8:30 AM EDT Appointment [facility] 1 [address] [place] [address] 10/02/2024 8:00 AM EDT Appointment [facility] 1 [address] [place] [address] 10/03/2024 8:00 AM EDT Appointment [facility] 1 [address] [place] [address] 10/04/2024 8:00 AM EDT Appointment [facility] 1 [address] [place] [address] 10/05/2024 8:00 AM EDT Appointment [facility] 1 [address] [place] [address] 10/06/2024 8:00 AM EDT Appointment [facility] 1 [address] [place] [address] documented as of this encounter Visit Diagnoses Not on filedocumented in this encounter Additional Health Concerns Assessment Noted Time A fall risk assessment has been complete d for the patient 07/30/2024 8:29 AM EDT A Body Mass Index follow-up plan has been documented for the patient 05/28/2024 1:52 PM EST documented as of this encounter Care Teams Transformation Coach Relationship Specialty Start Date End Date Jevon Vazquez MD [address] [place] [address] [address]1 [address] [place] [address] PCP - General 03/23/22 documented as of this encounter
--- OUTSIDE RECORDS SUMMARY | 2024-09-24 09:08 | XMS_ITS | Encounter Summary ---
Author Organization [facility] Address [address] [place] [address] Care Team Providers Care Supervisor Grower Name Role Phone Jevon Vazquez MD Primary Care Provider [phone] Reason for Visit * Reason Comments Med Refill Encounter Details Date Type Department Care Team ([facility] Contact Info) Description 09/12/2024 Refill [facility] Hematology/BMT and Cellular Therapy Program [address] [phone] [place] MD 800 [facility] [address] [place] [phone] Social History Tobacco Use Types Packs/Day Years [...] Encounters Date Type Department Care Team ([facility] Contact Info) Description 09/30/2024 9:00 AM EDT Clinical Support [facility] Hematology/BMT and Cellular Therapy Program [address] [phone] 09/30/2024 9:30 AM EDT Office Visit [facility] Hematology/BMT and Cellular Therapy Program [address] [phone] Zonia Hoffman, LENS SILVERER [address] [facility] [address] [place] [address] 09/30/2024 11:00 AM EDT Appointment [facility] 1 [address] [place] [address] 10/01/2024 8:30 AM EDT Appointment [facility] 1 [address] [place] [address] 10/02/2024 8:00 AM EDT Appointment [facility] 1 [address] [place] [address] 10/03/2024 8:00 AM EDT Appointment [facility] 1 [address] [place] [address] 10/04/2024 8:00 AM EDT Appointment [facility] 1 [address] [place] [address] 10/05/2024 8:00 AM EDT Appointment [facility] 1 [address] [place] [address] 10/06/2024 8:00 AM EDT Appointment [facility] 1 [address] [place] [address] documented as of this encounter Visit Diagnoses Not on filedocumented in this encounter Additional Health Concerns Assessment Noted Time A fall risk assessment has been complete d for the patient 07/30/2024 8:29 AM EDT A Body Mass Index follow-up plan has been documented for the patient 05/28/2024 1:52 PM EST documented as of this encounter Care Teams Supervisor Grower Relationship Specialty Start Date End Date Jevon Vazquez MD [address] [place] [address] #1 [address]1 [place] [address] PCP - General 03/23/22 documented as of this encounter
--- OUTSIDE RECORDS SUMMARY | 2024-09-24 09:08 | XMS_ITS | Encounter Summary ---
Author Organization [facility] Address [address] [place] [address] Care Team Providers Care Submarine Diver Name Role Phone Jevon Vazquez MD Primary Care Provider [phone] Encounter Details Date Type Department Care Team ([facility] Contact Info) Description 09/19/2024 Telephone [facility] Hematology/BMT and Cellular Therapy Program [address] [place] [address] Romana Richmond RN [facility] Social History Tobacco Use [...] Upcoming Encounters Date Type Department Care Team ([facility] Contact Info) Description 09/30/2024 9:00 AM EDT Clinical Support [facility] Hematology/BMT and Cellular Therapy Program [address] [place] [place] [address] 09/30/2024 9:30 AM EDT Office Visit [facility] Hematology/BMT and Cellular Therapy Program 750 [facility] [address] [place] [address] Zonia Hoffman, MOUSE BREEDER [address] [facility] [address] [place] [address] 09/30/2024 11:00 AM EDT Appointment [facility] 1 [address] [place] [address] 10/01/2024 8:30 AM EDT Appointment [facility] 1 [address] [place] [address] 10/02/2024 8:00 AM EDT Appointment [facility] 1 [address] [place] [address] 10/03/2024 8:00 AM EDT Appointment [facility] 1 [address] [place] [address] 10/04/2024 8:00 AM EDT Appointment [facility] 1 [address] [place] [address] 10/05/2024 8:00 AM EDT Appointment [facility] 1 [address] [place] [address] 10/06/2024 8:00 AM EDT Appointment [facility] 1 [address] [place] [address] documented as of this encounter Visit Diagnoses Not on filedocumented in this encounter Additional Health Concerns Assessment Noted Time A fall risk assessment has been complete d for the patient 09/19/2024 8:38 AM EDT A Body Mass Index follow-up plan has been documented for the patient 05/28/2024 1:52 PM EST documented as of this encounter Care Teams Submarine Diver Relationship Specialty Start Date End Date Jevon Vazquez MD [address] [place] [address] #1 #1 [place] [address] PCP - General 03/23/22 documented as of this encounter
--- OUTSIDE RECORDS SUMMARY | 2024-09-24 09:08 | XMS_ITS | Encounter Summary ---
Author Organization Healthcare Address [address] [place] [address] Care Team Providers Care Attendant Sales Name Role Phone Jevon Vazquez MD Primary Care Provider [phone] Encounter Details Date Type Department Care Team ([facility] Contact Info) Description 09/19/2024 Orders Only [facility] Hematology/BMT and Cellular Therapy Program [address] [phone] 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, RN [facility] Social History Tobacco Use [...] CC Hematology/BMT and Cellular Therapy Program [address] [phone] 09/30/2024 9:30 AM EDT Office Visit [facility] Hematology/BMT and Cellular Therapy Program [address] [phone] Zonia Hoffman, LOCOMOTIVE LUBRICATING SYSTEMS CLERK 800 [facility] [address] [place] [phone] 09/30/2024 11:00 AM EDT Appointment [facility] [address] [place] [address] 10/01/2024 8:30 AM EDT Appointment [facility] [address] [place] [address] 10/02/2024 8:00 AM EDT Appointment [facility] [address] [place] [address] 10/03/2024 8:00 AM EDT Appointment [facility] 1 [address] [place] [address] 10/04/2024 8:00 AM EDT Appointment [facility] 1 [address] [place] [address] 10/05/2024 8:00 AM EDT Appointment [facility] 1 [address] [place] [address] 10/06/2024 8:00 AM EDT Appointment [facility] [address] [place] [address] documented as of this encounter Visit Diagnoses Not on filedocumented in this encounter Additional Health Concerns Assessment Noted Time A fall risk assessment has been complete d for the patient 09/19/2024 8:38 AM EDT A Body Mass Index follow-up plan has been documented for the patient 05/28/2024 1:52 PM EST documented as of this encounter Care Teams Attendant Sales Relationship Specialty Start Date End Date Jevon Vazquez MD [address] [place] [address] #1 #1 Julien JOSEP [id number] PCP - General 03/23/22 documented as of this encounter
--- OUTSIDE RECORDS SUMMARY | 2024-09-24 09:08 | XMS_ITS | Encounter Summary ---
Author Organization [facility] Address [address] [place] [address] Care Team Providers Care Marketing Intelligence Manager Name Role Phone Jveon Vazquez MD Primary Care Provider Reason for Visit * Reason Comments Med Refill Encounter Details Date Type Department Care Team ([facility] Contact Info) Description 01/30/2024 Refill [facility] Hematology/BMT and Cellular Therapy Program [address] [phone] New Mckinney MD 800 [facility] [address] [place] [phone] Social History Tobacco Use Types Packs/Day Years [...] Upcoming Encounters Date Type Department Care Team ([facility] Contact Info) Description 09/30/2024 9:00 AM EDT Clinical Support [facility] Hematology/BMT and Cellular Therapy Program [address] [place] [phone] 09/30/2024 9:30 AM EDT Office Visit [facility] Hematology/BMT and Cellular Therapy Program [address] [phone] Zonia Hoffman, DEBUBBLIZER [address] [facility] [address] [place] [address] 09/30/2024 11:00 AM EDT Appointment [facility] 1 [address] [place] [address] 10/01/2024 8:30 AM EDT Appointment [facility] 1 [address] [place] [address] 10/02/2024 8:00 AM EDT Appointment [facility] 1 [address] [place] [address] 10/03/2024 8:00 AM EDT Appointment [facility] 1 [address] [place] [address] 10/04/2024 8:00 AM EDT Appointment [facility] 1 [address] [place] [address] 10/05/2024 8:00 AM EDT Appointment [facility] 1 [address] [place] [address] 10/06/2024 8:00 AM EDT Appointment [facility] 1 [address] [place] [address] documented as of this encounter Visit Diagnoses Not on filedocumented in this encounter Additional Health Concerns Assessment Noted Time A fall risk assessment has been complete d for the patient 01/11/2024 9:16 AM EDT A Body Mass Index follow-up plan has been documented for the patient 01/21/2024 6:16 AM EDT documented as of this encounter Care Teams Marketing Intelligence Manager Relationship Specialty Start Date End Date Jevon Vazquez MD [address] [place] [address] #1 #1 Julien JOSEP [phone] PCP - General 03/23/22 documented as of this encounter
--- OUTSIDE RECORDS SUMMARY | 2024-09-24 09:08 | XMS_ITS ---
Author Organization [facility] Address [address] [place] [address] Care Team Providers Care Model Artists' Name Role Phone Jevon Vazquez MD Primary Care Provider [phone] Active Problems Problem Noted Date Diagnosed Date [...]
--- OUTSIDE RECORDS SUMMARY | 2024-09-24 09:08 | XMS_ITS | Encounter Summary ---
Author Organization Healthcare Address [address] [place] [address] Care Team Providers Care Piano Bench Assembler Name Role Phone Jevon Vazquez MD Primary Care Provider [phone] Encounter Details Date Type Department Care Team [...] Hematology/BMT and Cellular Therapy Program [address] [phone] 09/30/2024 9:30 AM EDT Office Visit [facility] Hematology/BMT and Cellular Therapy Program [address] [phone] Zonia Hoffman, MANAGER CLINICAL RESEARCH 800 [facility] [address] [place] [phone] 09/30/2024 11:00 AM EDT Appointment [facility] 1 [address] [place] [address] 10/01/2024 8:30 AM EDT Appointment [facility] 1 [address] [place] [address] 10/02/2024 8:00 AM EDT Appointment [facility] 1 [address] [place] [address] 10/03/2024 8:00 AM EDT Appointment [facility] 1 [address] [place] [address] 10/04/2024 8:00 AM EDT Appointment [facility] 1 [address] [place] [address] 10/05/2024 8:00 AM EDT Appointment [facility] 1 [address] [place] [address] 10/06/2024 8:00 AM EDT Appointment [facility] 1 [address] [place] [address] documented as of this encounter Visit Diagnoses Not on filedocumented in this encounter Additional Health Concerns Assessment Noted Time A fall risk assessment has been complete d for the patient 07/30/2024 8:29 AM EDT A Body Mass Index follow-up plan has been documented for the patient 05/28/2024 1:52 PM EST documented as of this encounter Care Teams Piano Bench Assembler Relationship Specialty Start Date End Date Jevon Vazquez MD [address] [place] [address] #1 [address]1 [place] [address] PCP - General 03/23/22 documented as of this encounter
--- OUTSIDE RECORDS SUMMARY | 2024-09-24 09:08 | XMS_ITS | Encounter Summary ---
Author Organization Healthcare Address [address] [place] [address] Care Team Providers Care Twist Maker Name Role Phone Jevon Vazquez MD Primary Care Provider [phone] Encounter Details Date Type Department Care Team [...] CC Hematology/BMT and Cellular Therapy Program [address] [phone] 09/30/2024 9:30 AM EDT Office Visit [facility] Hematology/BMT and Cellular Therapy Program [address] [phone] Zonia Hoffman, PATIENT FINANCIAL COUNSELOR 800 [facility] [address] [place] [phone] 09/30/2024 11:00 AM EDT Appointment [facility] 1 [address] [place] [address] 10/01/2024 8:30 AM EDT Appointment [facility] 1 [address] [place] [address] 10/02/2024 8:00 AM EDT Appointment [facility] 1 [address] [place] [address] 10/03/2024 8:00 AM EDT Appointment [facility] 1 [address] [place] [address] 10/04/2024 8:00 AM EDT Appointment [facility] 1 [address] [place] [address] 10/05/2024 8:00 AM EDT Appointment [facility] 1 [address] [place] [address] 10/06/2024 8:00 AM EDT Appointment [facility] 1 [address] [place] [address] documented as of this encounter Visit Diagnoses Not on filedocumented in this encounter Additional Health Concerns Assessment Noted Time A fall risk assessment has been complete d for the patient 07/30/2024 8:29 AM EDT A Body Mass Index follow-up plan has been documented for the patient 05/28/2024 1:52 PM EST documented as of this encounter Care Teams Twist Maker Relationship Specialty Start Date End Date Jevon Vazquez MD [address] [place] [address] #1 [address]1 [place] [address] PCP - General 03/23/22 documented as of this encounter
--- OUTSIDE RECORDS SUMMARY | 2024-09-24 09:08 | XMS_ITS | Encounter Summary ---
Author Organization Healthcare Address [address] [place] [address] Care Team Providers Care Recreational Facilities Motel Manager Name Role Phone Jevon Vazquez MD Primary Care Provider [phone] Encounter Details Date Type Department Care Team [...] CC Hematology/BMT and Cellular Therapy Program [address] [phone] 09/30/2024 9:30 AM EDT Office Visit [facility] Hematology/BMT and Cellular Therapy Program [address] [phone] Zonia Hoffman, STUDIO DIRECTOR 800 [facility] [address] [place] [phone] 09/30/2024 11:00 AM EDT Appointment [facility] 1 [address] [place] [address] 10/01/2024 8:30 AM EDT Appointment [facility] 1 [address] [place] [address] 10/02/2024 8:00 AM EDT Appointment [facility] 1 [address] [place] [address] 10/03/2024 8:00 AM EDT Appointment [facility] 1 [address] [place] [address] 10/04/2024 8:00 AM EDT Appointment [facility] 1 [address] [place] [address] 10/05/2024 8:00 AM EDT Appointment [facility] 1 [address] [place] [address] 10/06/2024 8:00 AM EDT Appointment [facility] 1 [address] [place] [address] documented as of this encounter Visit Diagnoses Not on filedocumented in this encounter Additional Health Concerns Assessment Noted Time A fall risk assessment has been complete d for the patient 07/30/2024 8:29 AM EDT A Body Mass Index follow-up plan has been documented for the patient 05/28/2024 1:52 PM EST documented as of this encounter Care Teams Recreational Facilities Motel Manager Relationship Specialty Start Date End Date Jevon Vazquez MD [address] [place] [address] #1 [address]1 [place] [address] PCP - General 03/23/22 documented as of this encounter
--- OUTSIDE RECORDS SUMMARY | 2024-09-24 09:09 | XMS_ITS | Encounter Summary ---
Author Organization Healthcare Address [address] [place] [address] Care Team Providers Care Barrel Washer Machine Name Role Phone Jevon Vazquez MD Primary [...] Hematology/BMT and Cellular Therapy Program [address] [address] 09/30/2024 9:30 AM EDT Office Visit [facility] Hematology/BMT and Cellular Therapy Program [address] [address] Zonia Hoffman, CIVIL ENGINEERING DESIGN DRAFTSPERSON 800 [facility] [address] [place] [address] 09/30/2024 11:00 AM EDT Appointment [facility] 1 [address] [place] [address] 10/01/2024 8:30 AM EDT Appointment [facility] 1 [address] [place] [address] 10/02/2024 8:00 AM EDT Appointment [facility] 1 [address] [place] [address] 10/03/2024 8:00 AM EDT Appointment [facility] 1 [address] [place] [address] 10/04/2024 8:00 AM EDT Appointment [facility] 1 [address] [place] [address] 10/05/2024 8:00 AM EDT Appointment [facility] 1 [address] [place] [address] 10/06/2024 8:00 AM EDT Appointment [facility] 1 [address] [place] [address] documented as of this encounter Visit Diagnoses Not on filedocumented in this encounter Additional Health Concerns Assessment Noted Time A fall risk assessment has been complete d for the patient 07/30/2024 8:29 AM EDT A Body Mass Index follow-up plan has been documented for the patient 05/28/2024 1:52 PM EST documented as of this encounter Care Teams Barrel Washer Machine Relationship Specialty Start Date End Date Jevon Vazquez MD [address] [place] [address] #1 #1 [place] [address] PCP - General 03/23/22 documented as of this encounter
--- OUTSIDE RECORDS SUMMARY | 2024-09-24 09:09 | XMS_ITS | Clinical Summary ---
Author Organization [facility] Address [address] [place] [address] Care Team Providers Care Nut Blanker Operator Name Role Phone David Vazquez Primary Care Provider [phone] Allergies No known active allergies Medications atorvastatin [...] series) 2025 Medical Devices Implanted Type Area Reference Assistant Device Identifier Shelf Expiration Date Model / Serial / Lot Mis Ply Scr 6.5x50mm - [id number] Implanted:Qty : 1 on 01/30/2023 by Ivan Bartholomew MD at [facility] Screw N/A: Spine Lumbar [employer] [id number] / / Mis Ply Scr 6.5x45mm - [id number] Implanted:Qty : 3 on 01/30/2023 by Ivan Bartholomew MD at [facility] Screw N/A: Spine Lumbar [employer] [id number] / / Reline Mas Reduction Screw 7.5x45 - [id number] Implanted:Qty : 2 on 01/30/2023 by Ivan Bartholomew MD at [facility] Screw N/A: Spine Lumbar [employer] [id number] / / Grft Dbm Vesuvius Putty 5cc - [id number] Implanted:Qty : 1 on 01/30/2023 by Ivan Bartholomew MD at [facility] [employer] [id number] 04/20/2025 [id number] 050D P / [id number] / Putty I-Factor 5.0cc - [id number] Implanted:Qty : 1 on 01/30/2023 by Ivan Bartholomew MD at [facility] N/A: Spine Lumbar [employer] 03/15/2025 [id number] / / [id number] Modulus Xlw [id number] 10 Degree - [id number] Implanted:Qty : 1 on 01/30/2023 by Ivan Bartholomew MD at [facility] N/A: Spine Lumbar [employer] [id number] / / [id number] Modulus Xlw [id number] - [id number] Implanted:Qty : 1 on 01/30/2023 by Ivan Bartholomew MD at [facility] N/A: Spine Lumbar [employer] 09/28/2027 [id number] / / [id number] Reln Lock Scr 5.5mm Opn Tulip - [id number] Implanted:Qty : 6 on 01/30/2023 by Ivan Bartholomew MD at [facility] N/A: Spine Lumbar [employer] [id number] / / Reln Mas Ti Petar 5.5x70mm - [id number] Implanted:Qty : 2 on 01/30/2023 by Ivan Bartholomew MD at [facility] N/A: Spine Lumbar [employer] [id number] / / Procedures Procedure Name Priority Date/Time [...] Hgb A1C 6.0(H) 4.0 - 5.6 % [facility] Comment: Reference Ranges for Hgb [...] Standardization program (NGSP) and [facility] Estimated Average Glucose 126(H) 68 - 114 mg/dL [facility] Whole Blood (Blood) 01/24/2023 2:32 PM EDT 01/24/2023 6:00 PM EDT us Ivan Bartholomew MD CHEMISTRY ORDERABLES Fin al Result [facility] [address] * (ABNORMAL) BASIC METABOLIC PANEL (BMP=EP1) (01/24/2023 2:32 PM EDT) Sodium 141 135 - 146 mmol/L [facility] Potassium 4.8 3.5 - 5.1 mmol/L [facility] Chloride 107 98 - 110 mmol/L [facility] CO2 24 22 - 29 mmol/L [facility] Anion Gap 10 5 - 13 mmol/L [facility] Comment:Anion gap calculatio n does not include potassium (K+) value. BUN 17 7 - 25 mg/dL [facility] Creatinine 1.20 0.50 - 1.20 mg/dL [facility] Glucose 125(H) 71 - 99 mg/dL [facility] Comment:Reference range (71- 99 mg/dL) refers only to fasting samples, and does not apply to non-fasting samples. eGFR CKD-EPI 2020 48 See Note [facility] Comment: eGFR calculated with 2020 CKD-EPI equation using creatinine, patient's age and gender. Other factors, especially muscle mass, may affect accuracy and need to be considered. Patient values should be interpreted as a trend. The reference interval is >60 mL/min/1.73m2. Calcium 10.3 8.5 - 10.5 mg/dL [facility] BUN/Creatinine Ratio 14 [facility] Serum 01/24/2023 2:32 PM EDT 01/24/2023 5:54 PM EDT us Lexi SUAREZ CHEMISTRY ORDERABLES Final Resu lt [facility] [address] from Last 3 Months or Most Recently Relevant to Health Maintenance Insurance MEDICARE PART A [facility] [address] [address] [place] [address] ANTH Advance Directives For more information, please contact: [phone] * Full Code (Latest Code Status on File) Date Activated Date Inactivated Comments 01/30/2023 9:13 AM No automated chest compression devices for [facility] Patients Care Teams Nut Blanker Operator Relationship Specialty Start Date End Date David Vazquez [address] [place] [id number] PCP - General 01/24/23
--- OUTSIDE RECORDS SUMMARY | 2024-09-24 09:09 | XMS_ITS | Clinical Summary ---
Author Organization [facility] Address [address] [place] [address] Phone Care Team Providers Care Willow Worker Name Role Phone Jevon Vazquez MD Primary Care Provider [phone] Allergies Active Allergy Reactions Criticality Noted Date Comments Hydromorphone Nausea And Vomiting Medium 11/12/2022 Medications amLODIPine (NORVASC) 5 mg Oral Tablet 08/23/19 22 Active atorvastatin (LIPITOR) 10 mg Oral Tablet 08/23/19 22 Active metFORMIN (GLUCOPHAGE) 500 mg Oral Tablet 08/23/19 22 Active celecoxib (CELEBREX) 200 mg Oral CapsuleIndications :Protrusion of lumbar intervertebral disc,Lumbar degenerative disc disease,Left lumbar radiculopathy,Scia edd of left side Take 1 Capsule by mouth 2 times daily. 60 Capsule 1 01/20/20 22 Active Additional Information Patient not taking.Reason: Pt electing to not take the medication, Reported on 09/08/2022 pioglitazone (ACTOS) 30 mg Oral Tablet TAKE 1 TABLET BY MOUTH ONCE DAILY WITH A FULL GLASS OF WATER 06/15/19 23 Active cetirizine (ZYRTEC) 10 mg Oral Tablet Take 10 mg by mouth as needed. Active cholecalciferol, vitamin D3, 25 mcg (1,000 unit) Oral Tablet Take 1 Tablet by mouth daily. Active gabapentin (NEURONTIN) 300 mg Oral CapsuleIndications :Status post lumbar spinal fusion Take 1 Capsule by mouth 2 times daily as needed. 60 Capsule 4 10/04/19 23 Active fenofibrate (TRICOR) 145 mg Oral Tablet 07/18/20 23 Active methocarbamoL (ROBAXIN) 500 mg Oral Tablet Take 1 Tablet by mouth 2 times daily. 60 Tablet 4 01/10/20 Active HYDROcodone-acetam inophen (NORCO) 5-325 mg Oral TabletIndications: Fusion of spine of lumbar region Take 1 Tablet by mouth every 8 hours as needed for Major Surgery/Trauma (G89.18). 40 Tablet 02/29/20 Active traMADoL (ULTRAM) 50 mg Oral TabletIndications: Status post laminectomy,Primar y osteoarthritis of left hip Take 1 Tablet by mouth every 8 hours and prn. 40 Tablet 03/26/20 Active Active Problems Problem Noted Date Diagnosed Date Degeneration of lumbar intervertebral disc 05/10 Lumbar radiculopathy 12/06/2022 Back pain with radiculopathy 11/14/2022 Acute lumbar radiculopathy 11/11/2022 Age-related osteoporosis wit hout current pathological fracture 07/18/2022 Spinal stenosis of lumbar region 07/18/2022 Lumbar radiculopathy 07/18/2022 Lumbar spine pain 03/08/2022 Sciatica of left side 01/19/2022 Left lumbar radiculopathy 01/19/2022 Lumbar degenerative disc disease 01/19/2022 Protrusion of lumbar intervertebral disc 022 Chronic bilateral low back pain without sciatica 2021 Surgical History Surgery Date Site/Laterality Comments CHOLECYSTECTOMY HYSTERECTOMY HAND SURGERY COLONOSCOPY LUMBAR DISC SURGERY 09/21/2022 Spine/N/A L3-4, L4-5 LAMINECTOMY; Surgeon: Ivan Bartholomew MD; Location: [facility] MAIN OR; Service: Spine Medical History Medical History Date Comments Hypertension Arthritis Diabetes mellitus (HCC) Family History Medical History Relation Name Comments Anesth Problems Neg Hx Relation Name Status Comments Father Mother Social History Tobacco Use Types Packs/Day Years Used Date Smoking Tobacco: Never Smokeless Tobacco: Never Tobacco Cessation:Counseling Given: Not Answered Alcohol Use Standard Drinks/Week Comments Never 0 (1 standard drink = 0.6 oz pur e alcohol) Overall Financial Resource Strain (CARDIA) Answe r Date Recorded How hard is it for you to pa y for the very basics like food, housing, medical care, and heating? Not hard at all 11/15/2022 PHQ-2 Answer Date Recorded PHQ-2 Total Score 0 11/15/2022 Exercise Vital Sign Answer Date Recorde d On average, how many days pe r week do you engage in moderate to strenuous exercise (like a brisk walk)? 5 days 11/15/2022 On average, how many minutes do you engage in exercise at this level? 30 min 11/15/2022 Hunger Vital Sign Answer Date Recorded Within the past 12 months, y ou worried that your food would run out before you got the money to buy more. Never true 11/16/19 23 Within the past 12 months, t he food you bought just didn't last and you didn't have money to get more. Never true 11/15/2022 PRAPARE - Transportation Answer Date Re corded In the past 12 months, has l ack of transportation kept you from medical appointments or from getting medications? No 05/2022 In the past 12 months, has l ack of transportation kept you from meetings, work, or from getting things needed for daily living? No 11/15/2022 Comments No Sex and Gender Information Value Date Recorded Sex Assigned at Not on file Legal Sex Female 9:55 AM EDT Gender Identity Not on file Sexual Orientation Not on file Obstetrics History Last Filed Vital Signs Vital Sign Reading Time Taken Comments Blood Pressure 166/75 11/16/2022 7:56 AM EDT Pulse 83 11/16/2022 7:56 AM EDT Temperature 36.7 C (98 F) 11/16/2022 9:13 AM EDT Respiratory Rate 18 11/16/2022 4:35 AM EDT Oxygen Saturation 97% 11/16/2022 7:56 AM EDT Inhaled Oxygen Concentration - - Weight 63.5 kg (140 lb) 03/13/2023 9:39 AM EST Height 162.6 cm (5' 4 ) 03/13/2023 9:39 AM EST Body Mass Index 24.03 03/13/2023 9:39 AM EST Plan of Treatment Health Maintenance Due Date Last Done Comments Wellness Exam Medicare 1953 Lipids 1960 Microalbuminuria 1960 Diabetic Eye Exam 1968 Hepatitis C Screening 1968 Breast Cancer Screening 1990 Cologuard 11/04/1995 Colon Cancer Screening 11/04/1995 Colonoscopy 11/04/1995 FIT 11/04/1995 Sigmoidoscopy 11/04/1995 Virtual Colonography 11/04/1995 Zoster (2 of 3) 05/16/2023 03/21/2023 Hemoglobin A1c 07/26/2023 01/24/2023, 11/11/2022 COVID-19 Vaccine (4 - 2023-2 5 season) 2023 02/18/2021, 07/10/2020, 06/12/2020 Influenza Vaccine (Season Ended) 2024 03/21/2023, 02/10/2021, 01/23/2020, Additional history exists DTaP/TDaP/Td (2 - Td or Tdap) 03/18/2032 03/18/2022 Pneumococcal Vaccine 50+ Completed 022, 01/21/2019, 01/18/2018 Bone Density Screening Completed 07/25/2022 Hepatitis B Vaccine Aged Out No longe r eligible based on patient's age to complete this topic Meningococcal B Vaccine Aged Out No l onger eligible based on patient's age to complete this topic Procedures Procedure Name Priority Date/Time Associated Diagnosis Comments HEMOGLOBIN A1C Add-On 11/11/2022 3:46 PM EDT DX BONE DENSITY AXIAL SKELETON Routine 07/25/2022 9:14 AM EDT Lumbar degenerative disc disease Lumbar radiculopathy Spinal stenosis of lumbar region, unspecified whether neurogenic claudication present Age-related osteoporosis without current pathological fracture from Last 3 Months or Most Recently Relevant to Health Maintenance Results * (ABNORMAL) HEMOGLOBIN A1C (11/11/2022 3:46 PM EDT) Hgb A1C 6.8(H) 4.2 - 5.6 % 11/14/2022 2:57 PM EDT [facility] Est. Avg Glucose 148 mg/dL 11/14/2022 2:57 PM EDT [facility] Blood VENOUS BLOOD / Unknown Venipuncture / Unknown 11/11/2022 3:46 PM EDT 11/11/2022 3:55 PM EDT Narrative [facility] - 11/14/2022 2:57 PM EDT REFERENCE RANGE: Normal: 4.0-5.6% Pre-diabetes: 5.7-6.4% Provisional diagnosis of diabetes: >6.4% Hgb F>10% and anything which shortens red cell survival, such as hemolytic anemia, or unstable hemoglobin variants such as HbSS, HbSC, or HbCC, will lower the HbA1c value associated with a given level of glycemic control. Lexi Maloney DO CHEMISTRY ORDERABLES Final R esult [facility] [address] [facility] , [place] [address] * DX BONE DENSITY AXIAL SKELETON (07/25/2022 9:14 AM EDT) Anatomical Region Laterality Modality Dexa Scan 07/25/2022 Narrative 07/25/2022 3:45 PM EDT Indication: The patient is a female age 65 or older who requires a bone density assessment. Study was performed on [employer] 5. Bone Density: Region BMD T-score Z-score AP Spine (L2, L3, L4) 1.268 1.7 4.0 Femoral Neck (Left) 0.831 -0.2 1.7 Total Hip (Left) 1.003 0.5 2.1 Femoral Neck (Right) 0.803 -0.4 1.5 Total Hip (Right) 0.971 0.2 1.8 World Health Organization criteria for BMD interpretation classify patients as: Normal (T-score at or above -1.0), Low Bone Density (T-score between -1.0 and -2.5), or Osteoporotic (T-score at or below -2.5). T Scores are reported in Postmenopausal women and in men age 50 and older. Z-scores are reported in females prior to menopause and in males younger than age 50. 10-year Fracture Risk: FRAX not reported because: All T-scores for Spine Total, Hip Total, Femoral Neck at or above -1.0 Clinical Information Provided by Patient: Has had or currently has the following medical conditions: Diabetes Mellitus, Back pain, Hip pain Patient maximum height was 64 Menopause Age: 50 Patient is POST Interpretation: Bone mineral density is in the normal range. The spine portion of the study is limited by artifact within the region of interest with associated vertebra deleted. A minimum of two years may be required between bone density studies due to inherent testing precision limitations. Intervals between BMD testing should be determined according to each patient's clinical status. Reported by: Daphne Neri PA-C, CCD on 07/25/2022 9:13:00 AM. Ivan Bartholomew MD IMG DEXA ORDERABLES Final Result from Last 3 Months or Most Recently Relevant to Health Maintenance Insurance MEDICARE [place] PART A AND B MEDICARE SUPPLEMENT MEDICARE [place] PART [place] B Member Subscriber Plan / Payer (Ef fective 2016-Present) Name:Ashly Hernández Member ID:[id number] Relation to Subscriber:Self Name:Ashly Hernández Subscriber ID:[id number] Payer ID:Not on file Group ID:Not on file Type:Not on file Address: [address] MEDICARE SUPPLEMENT MEDICARE [place] PART A & B MEDICARE [place] PART A AND B Member Subscriber Plan / Payer (Ef fective 2016-Present) Name:Ashly Hernández Member ID:[id number] Relation to Subscriber:Self Name:Ashly Hernández Subscriber ID:[id number] Payer ID:Not on file Group ID:Not on file Type:Not on file Address: [address] MEDICARE SUPPLEMENT [employer] [place] [address] ANTH MEDICARE SUPPLEMENT Advance Directives For more information, please contact: [phone] * Full Code (Latest Code Status on File) Date Activated Date Inactivated Comments 11/14/2022 6:53 PM 11/16/2022 7:37 PM * Full Code Date Activated Date Inactivated Comments 11/12/2022 5:17 AM 11/14/2022 6:47 PM Care Teams Willow Worker Relationship Specialty Start Date End Date Jevon Vazquez MD [address] [place] [address] PCP - General Family Medicine 11/10/22
--- OUTSIDE RECORDS SUMMARY | 2024-09-24 09:09 | XMS_ITS | Encounter Summary ---
Author Organization Healthcare Address [address] [place] [address] Care Team Providers Care Director Transportation Name Role Phone Jevon Vazquez MD Primary Care Provider [phone] Encounter Details Date Type Department Care Team [...] Hematology/BMT and Cellular Therapy Program [address] [address] 09/30/2024 9:30 AM EDT Office Visit [facility] Hematology/BMT and Cellular Therapy Program [address] [address] Zonia Hoffman, TEACHER PUBLIC HEALTH 800 [facility] [address] [place] [address] 09/30/2024 11:00 AM EDT Appointment [facility] [address] [place] [address] 10/01/2024 8:30 AM EDT Appointment [facility] [address] [place] [address] 10/02/2024 8:00 AM EDT Appointment [facility] [address] [place] [address] 10/03/2024 8:00 AM EDT Appointment [facility] [address] [place] [address] 10/04/2024 8:00 AM EDT Appointment [facility] [address] [place] [address] 10/05/2024 8:00 AM EDT Appointment [facility] [address] [place] [address] 10/06/2024 8:00 AM EDT Appointment [facility] [address] [place] [address] documented as of this encounter Visit Diagnoses Not on filedocumented in this encounter Additional Health Concerns Assessment Noted Time A fall risk assessment has been complete d for the patient 07/16/2024 8:54 AM EDT A Body Mass Index follow-up plan has been documented for the patient 05/28/2024 1:52 PM EST documented as of this encounter Care Teams Director Transportation Relationship Specialty Start Date End Date Jevon Vazquze MD [address] [place] [address] [address] [place] [address] PCP - General 03/23/22 documented as of this encounter
--- OUTSIDE RECORDS SUMMARY | 2024-09-24 09:09 | XMS_ITS | Encounter Summary ---
Author Organization Healthcare Address [address] [place] [address] Care Team Providers Care Mental Health Counselor Name Role Phone Jevon Vazquez MD Primary Care Provider [phone] Encounter Details Date Type Department Care Team [...] Hematology/BMT and Cellular Therapy Program [address] [address] 09/30/2024 9:30 AM EDT Office Visit [facility] Hematology/BMT and Cellular Therapy Program [address] [address] Zonia Hoffman, ACCOUNTANT ASSISTANT 800 [facility] [address] [place] [address] 09/30/2024 11:00 AM EDT Appointment [facility] [address] [place] [address] 10/01/2024 8:30 AM EDT Appointment [facility] 1 [address] [place] [address] 10/02/2024 8:00 AM EDT Appointment [facility] 1 [address] [place] [address] 10/03/2024 8:00 AM EDT Appointment [facility] 1 [address] [place] [address] 10/04/2024 8:00 AM EDT Appointment [facility] 1 [address] [place] [address] 10/05/2024 8:00 AM EDT Appointment [facility] 1 [address] [place] [address] 10/06/2024 8:00 AM EDT Appointment [facility] 1 [address] [place] [address] documented as of this encounter Visit Diagnoses Not on filedocumented in this encounter Additional Health Concerns Assessment Noted Time A fall risk assessment has been complete d for the patient 07/30/2024 8:29 AM EDT A Body Mass Index follow-up plan has been documented for the patient 05/28/2024 1:52 PM EST documented as of this encounter Care Teams Mental Health Counselor Relationship Specialty Start Date End Date Jevon Vazquez MD [address] [place] [address] [address] [place] [address] PCP - General 03/23/22 documented as of this encounter
--- OUTSIDE RECORDS SUMMARY | 2024-09-24 09:09 | XMS_ITS | Encounter Summary ---
Author Organization Healthcare Address [address] [place] [address] Care Team Providers Care Technical Recruiter Name Role Phone Jevon Vazquez MD Primary Care Provider [phone] Encounter Details Date Type Department Care Team ([facility] st Contact Info) Description 09/01/2024 Telephone [facility] Hematology/BMT and Cellular Therapy Program [address] [address] Zonia Hoffman, HEEL COVERER MACHINE OPERATOR 800 [facility] [address] [place] [phone] Social History Tobacco Use Types Packs/Day Years [...] told her to cancel. Please confirm Callback number:[phone] documented in this encounter Plan of Treatment Upcoming Encounters Date Type Department Care Team (Late st Contact Info) Description 09/30/2024 9:00 AM EDT Clinical Support [facility] Hematology/BMT and Cellular Therapy Program [address] [address] 09/30/2024 9:30 AM EDT Office Visit [facility] Hematology/BMT and Cellular Therapy Program [address] [address] Zonia Hoffman, HEEL COVERER MACHINE OPERATOR 800 [facility] [address] [place] [address] 09/30/2024 11:00 AM EDT Appointment [facility] 1 [address] [place] [address] 10/01/2024 8:30 AM EDT Appointment [facility] 1 [address] [place] [address] 10/02/2024 8:00 AM EDT Appointment [facility] 1 [address] [place] [address] 10/03/2024 8:00 AM EDT Appointment [facility] 1 [address] [place] [address] 10/04/2024 8:00 AM EDT Appointment [facility] 1 [address] [place] [address] 10/05/2024 8:00 AM EDT Appointment [facility] 1 [address] [place] [address] 10/06/2024 8:00 AM EDT Appointment [facility] 1 [address] [place] [address] documented as of this encounter Visit Diagnoses Not on filedocumented in this encounter Additional Health Concerns Assessment Noted Time A fall risk assessment has been complete d for the patient 07/30/2024 8:29 AM EDT A Body Mass Index follow-up plan has been documented for the patient 05/28/2024 1:52 PM EST documented as of this encounter Care Teams Technical Recruiter Relationship Specialty Start Date End Date Jevon Vazquez MD [address] [place] [address] [address] [place] [address] PCP - General 03/23/22 documented as of this encounter
--- OUTSIDE RECORDS SUMMARY | 2024-09-24 09:09 | XMS_ITS | Encounter Summary ---
Author Organization Healthcare Address [address] [place] [address] Care Team Providers Care Grades 1 Thru 6 Home Teacher Name Role Phone Jevon Vazquez MD Primary Care Provider [phone] Encounter Details Date Type Department Care Team ([facility] st Contact Info) Description 07/15/2024 Telephone [facility] Hematology/BMT and Cellular Therapy Program [address] [address] Zonia Hoffman, TELEPHONIC RN 800 [facility] [address] [place] [phone] Social History Tobacco Use Types Packs/Day Years [...] Reason for Call: Per PT call to [facility], fabiana Hoffman appt clarity, asking to have Jorge from clinical care team. Best contact number and optimal time of day to reach caller: [phone] Note: Please do not reply to this [...] Upcoming Encounters Date Type Department Care Team ([facility] st Contact Info) Description 09/30/2024 9:00 AM EDT Clinical Support [facility] Hematology/BMT and Cellular Therapy Program [address] [place] [address] 09/30/2024 9:30 AM EDT Office Visit [facility] Hematology/BMT and Cellular Therapy Program [address] [address] Zonia Hoffman, TELEPHONIC RN 800 [facility] [address] [place] [address] 09/30/2024 11:00 AM EDT Appointment [facility] 1 [address] [place] [address] 10/01/2024 8:30 AM EDT Appointment [facility] 1 [address] [place] [address] 10/02/2024 8:00 AM EDT Appointment [facility] 1 [address] [place] [address] 10/03/2024 8:00 AM EDT Appointment [facility] 1 [address] [place] [address] 10/04/2024 8:00 AM EDT Appointment [facility] 1 [address] [place] [address] 10/05/2024 8:00 AM EDT Appointment [facility] 1 [address] [place] [address] 10/06/2024 8:00 AM EDT Appointment [facility] Infusion Clinic 1 [address] [place] [address] documented as of this encounter Visit Diagnoses Not on filedocumented in this encounter Additional Health Concerns Assessment Noted Time A fall risk assessment has been complete d for the patient 06/18/2024 10:22 AM EST A Body Mass Index follow-up plan has been documented for the patient 05/28/2024 1:52 PM EST documented as of this encounter Care Teams Grades 1 Thru 6 Home Teacher Relationship Specialty Start Date End Date Jevon Vazquez MD [address] [place] [address] [address] [place] [address] PCP - General 03/23/22 documented as of this encounter
--- OUTSIDE RECORDS SUMMARY | 2024-09-24 09:09 | XMS_ITS | Encounter Summary ---
Author Organization Healthcare Address [address] [place] [address] Care Team Providers Care Nurse Staff Name Role Phone Jevon Vazquez MD Primary Care Provider [phone] Encounter Details Date Type Department Care Team [...] Hematology/BMT and Cellular Therapy Program [address] [address] 09/30/2024 9:30 AM EDT Office Visit [facility] Hematology/BMT and Cellular Therapy Program [address] [address] Zonia Hoffman, TAP PULLER 800 [facility] [address] [place] [address] 09/30/2024 11:00 AM EDT Appointment [facility] [address] [place] [address] 10/01/2024 8:30 AM EDT Appointment [facility] 1 [address] [place] [address] 10/02/2024 8:00 AM EDT Appointment [facility] 1 [address] [place] [address] 10/03/2024 8:00 AM EDT Appointment [facility] 1 [address] [place] [address] 10/04/2024 8:00 AM EDT Appointment [facility] 1 [address] [place] [address] 10/05/2024 8:00 AM EDT Appointment [facility] 1 [address] [place] [address] 10/06/2024 8:00 AM EDT Appointment [facility] 1 [address] [place] [address] documented as of this encounter Visit Diagnoses Not on filedocumented in this encounter Additional Health Concerns Assessment Noted Time A fall risk assessment has been complete d for the patient 07/30/2024 8:29 AM EDT A Body Mass Index follow-up plan has been documented for the patient 05/28/2024 1:52 PM EST documented as of this encounter Care Teams Nurse Staff Relationship Specialty Start Date End Date Jevon Vazquez MD [address] [place] [address] [address] [place] [address] PCP - General 03/23/22 documented as of this encounter
--- OUTSIDE RECORDS SUMMARY | 2024-09-24 09:09 | XMS_ITS | Encounter Summary ---
Author Organization [facility] Address [address] [place] [address] Care Team Providers Care Hat Forming Machine Operator Name Role Phone Jevon Vazquez MD Primary Care Provider [phone] Reason for Visit * Reason Onset Date Comments Med Refill 07/30/2024 Encounter Details Date Type Department Care Team ([facility] Contact Info) Description 07/30/2024 Refill [facility] Hematology/BMT and Cellular Therapy Program [address] [place] [address] Daxa Elliott, RN [facility] Acute myeloid leukemia [...] Hematology/BMT and Cellular Therapy Program [address] [place] [address] 09/30/2024 9:30 AM EDT Office Visit [facility] Hematology/BMT and Cellular Therapy Program [address] [place] [address] Zonia Hoffman, STABBER [address] [facility] [address] [place] [address] 09/30/2024 11:00 AM EDT Appointment [facility] 1 [address] [place] [address] 10/01/2024 8:30 AM EDT Appointment [facility] 1 [address] [place] [address] 10/02/2024 8:00 AM EDT Appointment [facility] 1 [address] [place] [address] 10/03/2024 8:00 AM EDT Appointment [facility] 1 [address] [place] [address] 10/04/2024 8:00 AM EDT Appointment [facility] 1 [address] [place] [address] 10/05/2024 8:00 AM EDT Appointment [facility] 1 [address] [place] [address] 10/06/2024 8:00 AM EDT Appointment [facility] 1 [address] [place] [address] documented as of this encounter Visit Diagnoses [...] documented as of this encounter Care Teams Hat Forming Machine Operator Relationship Specialty Start Date End Date Jevon Vazquez MD [address] [place] [address] [address] [place] [address] PCP - General 03/23/22 documented as of this encounter
--- OUTSIDE RECORDS SUMMARY | 2024-09-24 09:09 | XMS_ITS | Encounter Summary ---
Author Organization Healthcare Address [address] [place] [address] Care Team Providers Care Industrial Commercial Groundskeeper Name Role Phone Jevon Vazquez MD Primary Care Provider [phone] Encounter Details Date Type Department Care Team [...] Hematology/BMT and Cellular Therapy Program [address] [address] 09/30/2024 9:30 AM EDT Office Visit [facility] Hematology/BMT and Cellular Therapy Program [address] [address] Zonia Hoffman, PRODUCT OPERATIONS ASSOCIATE 800 [facility] [address] [place] [address] 09/30/2024 11:00 AM EDT Appointment [facility] [address] [place] [address] 10/01/2024 8:30 AM EDT Appointment [facility] 1 [address] [place] [address] 10/02/2024 8:00 AM EDT Appointment [facility] 1 [address] [place] [address] 10/03/2024 8:00 AM EDT Appointment [facility] 1 [address] [place] [address] 10/04/2024 8:00 AM EDT Appointment [facility] 1 [address] [place] [address] 10/05/2024 8:00 AM EDT Appointment [facility] 1 [address] [place] [address] 10/06/2024 8:00 AM EDT Appointment [facility] [address] [place] [address] documented as of this encounter Visit Diagnoses Not on filedocumented in this encounter Additional Health Concerns Assessment Noted Time A fall risk assessment has been complete d for the patient 07/16/2024 8:54 AM EDT A Body Mass Index follow-up plan has been documented for the patient 05/28/2024 1:52 PM EST documented as of this encounter Care Teams Industrial Commercial Groundskeeper Relationship Specialty Start Date End Date Jevon Vazquez MD [address] [place] [address] [address] [place] [address] PCP - General 03/23/22 documented as of this encounter
--- OUTSIDE RECORDS SUMMARY | 2024-09-24 09:09 | XMS_ITS | Encounter Summary ---
Author Organization Healthcare Address [address] [place] [address] Care Team Providers Care Television Camera Operator Name Role Phone Jevon Vazquez MD Primary Care Provider [phone] Encounter Details Date Type Department Care Team [...] Hematology/BMT and Cellular Therapy Program [address] [address] 09/30/2024 9:30 AM EDT Office Visit [facility] Hematology/BMT and Cellular Therapy Program [address] [address] Zonia Hoffman, VICE PRESIDENT SALES 800 [facility] [address] [place] [address] 09/30/2024 11:00 AM EDT Appointment [facility] 1 [address] [place] [address] 10/01/2024 8:30 AM EDT Appointment [facility] 1 [address] [place] [address] 10/02/2024 8:00 AM EDT Appointment [facility] 1 [address] [place] [address] 10/03/2024 8:00 AM EDT Appointment [facility] 1 [address] [place] [address] 10/04/2024 8:00 AM EDT Appointment [facility] 1 [address] [place] [address] 10/05/2024 8:00 AM EDT Appointment [facility] 1 [address] [place] [address] 10/06/2024 8:00 AM EDT Appointment [facility] 1 [address] [place] [address] documented as of this encounter Visit Diagnoses Not on filedocumented in this encounter Additional Health Concerns Assessment Noted Time A fall risk assessment has been complete d for the patient 07/30/2024 8:29 AM EDT A Body Mass Index follow-up plan has been documented for the patient 05/28/2024 1:52 PM EST documented as of this encounter Care Teams Television Camera Operator Relationship Specialty Start Date End Date Jevon Vazquez MD [address] [place] [address] [address]1 [place] [address] PCP - General 03/23/22 documented as of this encounter
--- OUTSIDE RECORDS SUMMARY | 2024-09-24 09:09 | XMS_ITS | Encounter Summary ---
Author Organization Healthcare Address [address] [place] [address] Care Team Providers Care Bag Mender Name Role Phone Jevon Vazquez MD Primary Care Provider [phone] Encounter Details Date Type Department Care Team [...] Hematology/BMT and Cellular Therapy Program [address] [address] 09/30/2024 9:30 AM EDT Office Visit [facility] Hematology/BMT and Cellular Therapy Program [address] [address] Zonia Hoffman, SOIL SCIENCE TECHNICAL OFFICER 800 [facility] [address] [place] [address] 09/30/2024 11:00 AM EDT Appointment [facility] 1 [address] [place] [address] 10/01/2024 8:30 AM EDT Appointment [facility] 1 [address] [place] [address] 10/02/2024 8:00 AM EDT Appointment [facility] 1 [address] [place] [address] 10/03/2024 8:00 AM EDT Appointment [facility] 1 [address] [place] [address] 10/04/2024 8:00 AM EDT Appointment [facility] 1 [address] [place] [address] 10/05/2024 8:00 AM EDT Appointment [facility] 1 [address] [place] [address] 10/06/2024 8:00 AM EDT Appointment [facility] 1 [address] [place] [address] documented as of this encounter Visit Diagnoses Not on filedocumented in this encounter Additional Health Concerns Assessment Noted Time A fall risk assessment has been complete d for the patient 07/16/2024 8:54 AM EDT A Body Mass Index follow-up plan has been documented for the patient 05/28/2024 1:52 PM EST documented as of this encounter Care Teams Bag Mender Relationship Specialty Start Date End Date Jevon Vazquez MD [address] [place] [address] [address] [place] [address] PCP - General 03/23/22 documented as of this encounter
--- OUTSIDE RECORDS SUMMARY | 2024-09-24 09:09 | XMS_ITS | Encounter Summary ---
Author Organization Healthcare Address [address] [place] [address] Care Team Providers Care Crusher Screen Repairer Name Role Phone Jevon Vazquez MD Primary Care Provider [phone] Encounter Details Date Type Department Care Team [...] CC Hematology/BMT and Cellular Therapy Program [address] [address] 09/30/2024 9:30 AM EDT Office Visit [facility] CC Hematology/BMT and Cellular Therapy Program [address] [address] Zonia Hoffman, CLOTHES SHAKER 800 [facility] [address] [place] [address] 09/30/2024 11:00 AM EDT Appointment [facility] 1 [address] [place] [address] 10/01/2024 8:30 AM EDT Appointment [facility] 1 [address] [place] [address] 10/02/2024 8:00 AM EDT Appointment [facility] 1 [address] [place] [address] 10/03/2024 8:00 AM EDT Appointment [facility] 1 [address] [place] [address] 10/04/2024 8:00 AM EDT Appointment [facility] 1 [address] [place] [address] 10/05/2024 8:00 AM EDT Appointment [facility] 1 [address] [place] [address] 10/06/2024 8:00 AM EDT Appointment [facility] 1 [address] [place] [address] documented as of this encounter Visit Diagnoses Not on filedocumented in this encounter Additional Health Concerns Assessment Noted Time A fall risk assessment has been complete d for the patient 07/30/2024 8:29 AM EDT A Body Mass Index follow-up plan has been documented for the patient 05/28/2024 1:52 PM EST documented as of this encounter Care Teams Crusher Screen Repairer Relationship Specialty Start Date End Date Jevon Vazquez MD [address] [place] [address] [address] [place] [address] PCP - General 03/23/22 documented as of this encounter
--- OUTSIDE RECORDS SUMMARY | 2024-09-24 09:09 | XMS_ITS | Encounter Summary ---
Author Organization Healthcare Address [address] [place] [address] Care Team Providers Care Core Oven Tender Name Role Phone Jevon Vazquez MD Primary Care Provider [phone] Encounter Details Date Type Department Care Team ([facility] st Contact Info) Description 08/18/2024 Telephone [facility] CC Hematology/BMT and Cellular Therapy Program [address] [address] Romana Gorman, CAD APPLICATION SUPPORT SPECIALIST 800 [facility] [address] [place] [address] Social History Tobacco Use Types Packs/Day Years [...] to her levels being low Callback number: [phone] documented in this encounter Plan of Treatment Upcoming Encounters Date Type Department Care Team (Late st Contact Info) Description 09/30/2024 9:00 AM EDT Clinical Support P[facility] Hematology/BMT and Cellular Therapy Program [address] [address] 09/30/2024 9:30 AM EDT Office Visit [facility] Hematology/BMT and Cellular Therapy Program [address] [address] Zonia Hoffman, CAD APPLICATION SUPPORT SPECIALIST 800 [facility] [address] [place] [address] 09/30/2024 11:00 AM EDT Appointment [facility] 1 [address] [place] [address] 10/01/2024 8:30 AM EDT Appointment [facility] 1 [address] [place] [address] 10/02/2024 8:00 AM EDT Appointment [facility] 1 [address] [place] [address] 10/03/2024 8:00 AM EDT Appointment [facility] 1 [address] [place] [address] 10/04/2024 8:00 AM EDT Appointment [facility] 1 [address] [place] [address] 10/05/2024 8:00 AM EDT Appointment [facility] 1 [address] [place] [address] 10/06/2024 8:00 AM EDT Appointment [facility] 1 [address] [place] [address] documented as of this encounter Visit Diagnoses Not on filedocumented in this encounter Additional Health Concerns Assessment Noted Time A fall risk assessment has been complete d for the patient 07/30/2024 8:29 AM EDT A Body Mass Index follow-up plan has been documented for the patient 05/28/2024 1:52 PM EST documented as of this encounter Care Teams Core Oven Tender Relationship Specialty Start Date End Date Jevon Vazquez MD [address] [place] [address] [address]1 [address]1 [place] [address] PCP - General 03/23/22 documented as of this encounter
--- OUTSIDE RECORDS SUMMARY | 2024-09-24 09:09 | XMS_ITS | Encounter Summary ---
Author Organization Healthcare Address [address] [place] [address] Care Team Providers Care Social And Human Services Assistant Name Role Phone Jevon Vazquez MD Primary Care Provider [phone] Encounter Details Date Type Department Care Team [...] CC Hematology/BMT and Cellular Therapy Program [address] [address] 09/30/2024 9:30 AM EDT Office Visit [facility] CC Hematology/BMT and Cellular Therapy Program [address] [address] Zonia Hoffman, STONE POLISHER HAND 800 [facility] [address] [place] [address] 09/30/2024 11:00 AM EDT Appointment [facility] 1 [address] [place] [address] 10/01/2024 8:30 AM EDT Appointment [facility] 1 [address] [place] [address] 10/02/2024 8:00 AM EDT Appointment [facility] 1 [address] [place] [address] 10/03/2024 8:00 AM EDT Appointment [facility] 1 [address] [place] [address] 10/04/2024 8:00 AM EDT Appointment [facility] 1 [address] [place] [address] 10/05/2024 8:00 AM EDT Appointment [facility] 1 [address] [place] [address] 10/06/2024 8:00 AM EDT Appointment [facility] 1 [address] [place] [address] documented as of this encounter Visit Diagnoses Not on filedocumented in this encounter Additional Health Concerns Assessment Noted Time A fall risk assessment has been complete d for the patient 07/16/2024 8:54 AM EDT A Body Mass Index follow-up plan has been documented for the patient 05/28/2024 1:52 PM EST documented as of this encounter Care Teams Social And Human Services Assistant Relationship Specialty Start Date End Date Jevon Vazquez MD [address] [place] [address] [address] [place] [address] PCP - General 03/23/22 documented as of this encounter
--- OUTSIDE RECORDS SUMMARY | 2024-09-24 09:09 | XMS_ITS | Encounter Summary ---
Author Organization Healthcare Address [address] [place] [address] Care Team Providers Care Cloth Washer Name Role Phone Jevon Vazquez MD Primary Care Provider [phone] Encounter Details Date Type Department Care Team [...] CC Hematology/BMT and Cellular Therapy Program [address] [address] 09/30/2024 9:30 AM EDT Office Visit [facility] CC Hematology/BMT and Cellular Therapy Program [address] [address] Zonia Hoffman, DEICER ELEMENT WINDER MACHINE 800 [facility] [address] [place] [address] 09/30/2024 11:00 AM EDT Appointment [facility] 1 [address] [place] [address] 10/01/2024 8:30 AM EDT Appointment [facility] 1 [address] [place] [address] 10/02/2024 8:00 AM EDT Appointment [facility] 1 [address] [place] [address] 10/03/2024 8:00 AM EDT Appointment [facility] 1 [address] [place] [address] 10/04/2024 8:00 AM EDT Appointment [facility] 1 [address] [place] [address] 10/05/2024 8:00 AM EDT Appointment [facility] 1 [address] [place] [address] 10/06/2024 8:00 AM EDT Appointment [facility] 1 [address] [place] [address] documented as of this encounter Visit Diagnoses Not on filedocumented in this encounter Additional Health Concerns Assessment Noted Time A fall risk assessment has been complete d for the patient 07/30/2024 8:29 AM EDT A Body Mass Index follow-up plan has been documented for the patient 05/28/2024 1:52 PM EST documented as of this encounter Care Teams Cloth Washer Relationship Specialty Start Date End Date Jevon Vazquez MD [address] [place] [address] [address] [place] [address] PCP - General 03/23/22 documented as of this encounter
--- OUTSIDE RECORDS SUMMARY | 2024-09-24 09:09 | XMS_ITS | Encounter Summary ---
Author Organization Healthcare Address [address] [place] [address] Care Team Providers Care Junior Software Engineer Name Role Phone Jevon Vazquez MD Primary Care Provider [phone] Encounter Details Date Type Department Care Team (Latest Contact Info) Description 09/23/2024 Travel Social History Tobacco Use Types Packs/Day [...] CC Hematology/BMT and Cellular Therapy Program [address] [address] 09/30/2024 9:30 AM EDT Office Visit [facility] CC Hematology/BMT and Cellular Therapy Program [address] [address] Zonia Hoffman, ENVIRONMENTAL COMMUNICATIONS SPECIALIST 800 [facility] [address] [place] [address] 09/30/2024 11:00 AM EDT Appointment [facility] 1 [address] [place] [address] 10/01/2024 8:30 AM EDT Appointment [facility] 1 [address] [place] [address] 10/02/2024 8:00 AM EDT Appointment [facility] 1 [address] [place] [address] 10/03/2024 8:00 AM EDT Appointment [facility] 1 [address] [place] [address] 10/04/2024 8:00 AM EDT Appointment [facility] 1 [address] [place] [address] 10/05/2024 8:00 AM EDT Appointment [facility] 1 [address] [place] [address] 10/06/2024 8:00 AM EDT Appointment [facility] 1 [address] [place] [address] documented as of this encounter Visit Diagnoses Not on filedocumented in this encounter Additional Health Concerns Assessment Noted Time A fall risk assessment has been complete d for the patient 09/19/2024 8:38 AM EDT A Body Mass Index follow-up plan has been documented for the patient 05/28/2024 1:52 PM EST documented as of this encounter Care Teams Junior Software Engineer Relationship Specialty Start Date End Date Jevon Vazquez MD [address] [place] [address] [address]1 [place] [address] PCP - General 03/23/22 documented as of this encounter
--- OUTSIDE RECORDS SUMMARY | 2024-09-24 09:09 | XMS_ITS | Encounter Summary ---
Author Organization [facility] Address [address] [place] [address] Care Team Providers Care Superintendent Division Name Role Phone Jevon Vazquez MD Primary Care Provider [phone] Encounter Details Date Type Department Care Team ([facility] Contact Info) Description 07/30/2024 Telephone P[facility] CC Hematology/BMT and Cellular Therapy Program [address] [place] [address] Romana Richmond RN [facility] Social History [...] Encounters Date Type Department Care Team ([facility] Contact Info) Description 09/30/2024 9:00 AM EDT Clinical Support PAV CC Hematology/BMT and Cellular Therapy Program [address] [place] [place] [address] 09/30/2024 9:30 AM EDT Office Visit P[facility] CC Hematology/BMT and Cellular Therapy Program 750 [facility] [address] [place] [address] Zonia Hoffman, COMPUTER NETWORK AND SYSTEMS ENGINEER [address] [facility] [address] [place] [address] 09/30/2024 11:00 AM EDT Appointment [facility] 1 [address] [place] [address] 10/01/2024 8:30 AM EDT Appointment [facility] 1 [address] [place] [address] 10/02/2024 8:00 AM EDT Appointment [facility] 1 [address] [place] [address] 10/03/2024 8:00 AM EDT Appointment [facility] 1 [address] [place] [address] 10/04/2024 8:00 AM EDT Appointment [facility] 1 [address] [place] [address] 10/05/2024 8:00 AM EDT Appointment [facility] 1 [address] [place] [address] 10/06/2024 8:00 AM EDT Appointment [facility] 1 [address] [place] [address] documented as of this encounter Visit Diagnoses Not on filedocumented in this encounter Additional Health Concerns Assessment Noted Time A fall risk assessment has been complete d for the patient 07/30/2024 8:29 AM EDT A Body Mass Index follow-up plan has been documented for the patient 05/28/2024 1:52 PM EST documented as of this encounter Care Teams Superintendent Division Relationship Specialty Start Date End Date Jevon Vazquez MD [address] [place] [address] #1 [address]1 [place] [address] PCP - General 03/23/22 documented as of this encounter
--- OUTSIDE RECORDS SUMMARY | 2024-09-24 09:09 | XMS_ITS | Encounter Summary ---
Author Organization Healthcare Address [address] [place] [address] Care Team Providers Care Choreography Director Name Role Phone Jevon Vazquez MD Primary Care Provider [phone] Encounter Details Date Type Department Care Team [...] Hematology/BMT and Cellular Therapy Program [address] [address] 09/30/2024 9:30 AM EDT Office Visit [facility] CC Hematology/BMT and Cellular Therapy Program [address] [address] Zonia Hoffman, MEDIC TECHNICIAN 800 [facility] [address] [place] [address] 09/30/2024 11:00 AM EDT Appointment [facility] 1 [address] [place] [address] 10/01/2024 8:30 AM EDT Appointment [facility] 1 [address] [place] [address] 10/02/2024 8:00 AM EDT Appointment [facility] 1 [address] [place] [address] 10/03/2024 8:00 AM EDT Appointment [facility] 1 [address] [place] [address] 10/04/2024 8:00 AM EDT Appointment [facility] 1 [address] [place] [address] 10/05/2024 8:00 AM EDT Appointment [facility] 1 [address] [place] [address] 10/06/2024 8:00 AM EDT Appointment [facility] 1 [address] [place] [address] documented as of this encounter Visit Diagnoses Not on filedocumented in this encounter Additional Health Concerns Assessment Noted Time A fall risk assessment has been complete d for the patient 07/30/2024 8:29 AM EDT A Body Mass Index follow-up plan has been documented for the patient 05/28/2024 1:52 PM EST documented as of this encounter Care Teams Choreography Director Relationship Specialty Start Date End Date Jevon Vazquez MD [address] [place] [address] [address]1 [address]1 [place] [address] PCP - General 03/23/22 documented as of this encounter
--- OUTSIDE RECORDS SUMMARY | 2024-09-24 09:09 | XMS_ITS | Clinical Summary ---
Author Organization [facility] Address [address] 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) 09/19/2024 9:30 AM EDT Clinical Support [facility] [address] [facility], 2nd [place] [phone] 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) 09/19/2024 7:30 AM EDT Clinical Support [facility] Hematology/BMT and Cellular Therapy Program [address] [phone] 09/19/2024 Telephone [facility]ology[facility]BMT and Cellular Therapy Program [address] [phone] Romana Richmond RN 09/19/2024 Orders Only [facility]ology[facility]BMT [facility] Cellular Therapy Program [address] [phone] 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 RN 09/19/2024 Travel 09/15/2024 Telephone [facility] Cellular Therapy Program [address] [phone] Zonia Hoffman, VENDOR MANAGEMENT ASSOCIATE 09/15/2024 Travel 09/14/2024 Travel 09/13/2024 Travel 09/12/2024 Travel 09/12/2024 Refill [facility]BMT [facility] Cellular Therapy Program [address] [phone] New Mckinney MD 09/11/2024 Travel 09/10/2024 Travel 09/01/2024 Telephone [facility]ology/BMT [facility] Cellular Therapy Program [address] [phone] Zonia Hoffman, VENDOR MANAGEMENT ASSOCIATE 08/31/2024 Travel 08/30/2024 Travel 08/18/2024 Telephone [facility]ology/BMT and Cellular Therapy Program [address] [phone] Romana Gorman, VENDOR MANAGEMENT ASSOCIATE 08/17/2024 Travel 08/16/2024 Travel 08/15/2024 Travel 08/13/2024 Travel 07/30/2024 8:30 AM EDT Office Visit [facility]ology[facility]BMT [facility] Cellular Therapy Program [address] [phone] Zonia Hoffman, VENDOR MANAGEMENT ASSOCIATE Pancytopenia (Primary Dx) 07/30/2024 8:00 AM EDT Clinical Support [facility]MT [facility] Cellular Therapy Program [address] [phone] Pancytopenia 07/30/2024 Telephone [facility]ology/BMT and Cellular Therapy Program [address] [phone] Romana Richmond RN 07/30/2024 Refill [facility]ology[facility]BMT [facility] Cellular Therapy Program [address] [phone] Daxa Elliott tobacco drummer 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); Immunosuppressed status (CMS/HCC) 07/30/2024 Travel 07/29/2024 Travel 07/28/2024 Travel 07/27/2024 Travel 07/26/2024 Travel 07/24/2024 Travel 07/23/2024 Travel 07/19/2024 Refill [facility]BMT [facility] Cellular Therapy Program [address] [place] [phone] Zonia Hoffman, VENDOR MANAGEMENT ASSOCIATE 07/16/2024 9:00 AM EDT Office Visit [facility]ology/BMT and Cellular Therapy Program [address] [place] [phone] Zonia Hoffman, VENDOR MANAGEMENT ASSOCIATE Pancytopenia (Primary Dx); 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) 07/16/2024 8:30 AM EDT Clinical Support [facility]BMT [facility] Cellular Therapy Program [address] [place] [phone] 07/16/2024 Travel 07/15/2024 Travel 07/15/2024 Telephone [facility]ology[facility]BMT [facility] Cellular Therapy Program [address] [place] [phone] Zonia Hoffman, VENDOR MANAGEMENT ASSOCIATE 07/14/2024 Travel 07/13/2024 Travel 07/12/2024 Travel 07/11/2024 Travel 07/10/2024 Travel 07/09/2024 Travel 07/01/2024 Travel 06/30/2024 Travel 06/29/2024 Travel 06/28/2024 Travel 06/27/2024 Travel 06/27/2024 Refill [facility]ology/BMT and Cellular Therapy Program [address] [place] [phone] New Mckinney MD Immunosuppressed status (CMS/HCC) (Primary Dx) [...] Upcoming Encounters Date Type Department Care Team ([facility] Contact Info) Description 09/30/2024 9:00 AM EDT Clinical Support [facility] Hematology/BMT and Cellular Therapy Program [address] [phone] 09/30/2024 9:30 AM EDT Office Visit [facility] Hematology/BMT and Cellular Therapy Program [address] [phone] Zonia Hoffman, VENDOR MANAGEMENT ASSOCIATE 800 [facility] [address] [place] [phone] 09/30/2024 11:00 AM EDT Appointment [facility] [address] [place] [address] 10/01/2024 8:30 AM EDT Appointment [facility] [address] [place] [address] 10/02/2024 8:00 AM EDT Appointment [facility] 1 [address] [place] [address] 10/03/2024 8:00 AM EDT Appointment [facility] 1 [address] [place] [address] 10/04/2024 8:00 AM EDT Appointment [facility] 1 [address] [place] [address] 10/05/2024 8:00 AM EDT Appointment [facility] [address] [place] [address] 10/06/2024 8:00 AM EDT Appointment [facility] 1 [address] [place] [address] Health Maintenance Due Date Last Done Comments [facility]-Medicare Annual Wellness (AWV) 1950 [facility]-/Child/Adol SDOH Screenings 1950 [facility]- SDOH Screenings 1968 [facility]-Adult SDOH Screenings 1968 CT Colonography 11/04/1995 Colonoscopy 11/04/1995 FIT-DNA 11/04/1995 FIT 11/04/1995 FOBT 11/04/1995 Sigmoidoscopy 11/04/1995 [facility]-Colorectal Cancer Screening 11/04/1995 [facility]-Breast Cancer Screening 2000 [facility]-RSV Vaccine: 60+ Years or (1 - Risk 60-74 years 1-dose series) 2010 [facility]-Zoster Vaccines (1 of 2) 05/16/2023 03/21/2023 [id number] Vaccine ( season) 2023 02/18/2021, 07/10/2020, 06/12/2020 [...] this topic Medical Devices Implanted Type Area Revenue Stamp Clerk Device Identifier Shelf Expiration Date Model / Serial / Lot Port Clearvue Power 8fr - [id number] Implanted:Qty: 1 on 01/21/2024 by Ness Sargent MD at [facility] Peripherial [id number] / / Procedures Procedure Name Priority Date/Time Associated Diagnosis Comments BIOPSY BONE MARROW Routine 09/19/2024 12 :00 PM EDT 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 Alternatives discussed: Delayed treatment Winona protocol: Procedure explained and questions answered to [...] BLOOD ORDERABLES Final Re sult [facility] [address] [place] [address] * Transfuse platelets, Irradiated (09/19/2024 10:02 AM EDT) us Lexi Ferraro APRN BLOOD TRANSFUSION ORDERABL ES Final Result * Prepare Leukocyte Reduced Platelets (09/19/2024 9:08 AM EDT) Product Code S3901N82 CH BLOO D BANK Dispense Status Transfused BLOOD BANK Blood Expiration Date [id number] BLOOD BANK Unit Number [id number] CH B LOOD BANK Product Blood Type 6200 BLOOD BANK Blood Type A+ BLOOD BANK us Provider Not In System BLOOD BANK PRODUCT ORD ERABLES Final Result [place] [address], * Leukemia/Lymphoma - Immunophenotyping by Flow Cytometry (09/19/2024 7:29 AM EDT) Clinical Indication AML 09/22/2024 10:29 AM EDT [facility] Flow Cytometry Interpretation A. BONE MARROW FOR FLOW CYTOMETRY: - MIXED MARROW ELEMENTS WITH NO EVIDENCE OF INCREASED BLASTS OR ABNORMAL LYMPHOID POPULATIONS, SEE COMMENT. 09/22/2024 10:29 AM EDT [facility] Comments CD45/side scatter analysis [...] surface light chains 09/22/2024 10:29 AM EDT [facility] Disclaimer This test was developed and its performance characteristics determined by the Immuno-Molecular Pathology Laboratory at the [facility]. It has not been cleared or [...] on the report. 09/22/2024 10:29 AM EDT [facility] Pathologist Signature Reviewed by: Lisandra Epstein MD 09/22/2024 10:29 AM EDT [facility] MRD Indicated Test Not Indicated 12/2024 10:29 AM EDT [facility] Bone Marrow Specimen from bone marrow obtained by aspiration / Unknown Non-blood Collection / Unknown 09/19/2024 7:29 AM EDT 09/19/2024 12:13 PM EDT us New Mckinney MD LAB FLOW CYTOMETRY ORDERABLES Final Result [facility] [address] [place] [address] * (ABNORMAL) CBC and differential (09/19/2024 7:29 AM EDT) Only the most recent of3 resultswithin the time period is included. WBC Count 2.70(L) 3.70 - 10.30 10*3/uL LAB HEMATOLOGY METHOD 09/19/2024 9:13 AM EDT [facility] RBC Count 1.86(L) 3.90 - 5.20 10*6/uL LAB HEMATOLOGY METHOD 09/19/2024 9:13 AM EDT [facility] HGB 7.1(L) 11.2 - 15.7 g/dL LAB HEMATOLOGY METHOD 09/19/2024 9:13 AM EDT [facility] HCT 21.5(L) 34.0 - 45.0 % LAB HEMATOLOGY METHOD 09/19/2024 9:13 AM EDT [facility] Platelet Count 14(LL) 155 - 369 10*3/uL LAB HEMATOLOGY METHOD 09/19/2024 9:13 AM EDT [facility] MCV 116(H) 79 - 98 fL LAB HEMATOLOGY METHOD 09/19/2024 9:13 AM EDT [facility] MCH 38.2(H) 26.0 - 32.0 pg LAB HEMATOLOGY METHOD 09/19/2024 9:13 AM EDT [facility] MCHC 33.0 30.7 - 35.5 g/dL LAB HEMATOLOGY METHOD 09/19/2024 9:13 AM EDT [facility] RDW 21.8(H) 11.5 - 14.5 % LAB HEMATOLOGY METHOD 09/19/2024 9:13 AM EDT [facility] MPV 13.5(H) 8.8 - 12.5 fL LAB HEMATOLOGY METHOD 09/19/2024 9:13 AM EDT [facility] nRBC 0.0 <=0.0 per 100 WBCs LAB HEMATOLOGY METHOD 09/19/2024 9:13 AM EDT [facility] Differential Type Automated LAB HEMATOLOGY METHOD 09/19/2024 9:13 AM EDT [facility] Neutrophils % 51 % LAB HEMATOLOGY METHOD 09/19/2024 9:13 AM EDT [facility] Lymphocytes % 41 % LAB HEMATOLOGY METHOD 09/19/2024 9:13 AM EDT [facility] Monocytes % 7 % LAB HEMATOLOGY METHOD 09/19/2024 9:13 AM EDT [facility] Eosinophils % 1 % LAB HEMATOLOGY METHOD 09/19/2024 9:13 AM EDT [facility] Basophils % 0 % LAB HEMATOLOGY METHOD 09/19/2024 9:13 AM EDT [facility] Immature Granulocytes % 0 % LAB HEMATOLOGY METHOD 09/19[facility]24 [facility] Neutrophils Absolute 1.35(L) 1.60 - 6.10 10*3/uL LAB HEMATOLOGY METHOD 09/19/2024 9:13 AM EDT [facility] Lymphocytes Absolute 1.10(L) 1.20 - 3.90 10*3/uL LAB HEMATOLOGY METHOD 09/19/2024 9:[facility] Monocytes Absolute 0.20(L) 0.30 - 0.90 10*3/uL LAB HEMATOLOGY METHOD 09/19/2024 9:[facility] Eosinophils Absolute 0.03 0.00 - 0.50 10*3/uL LAB HEMATOLOGY METHOD 09/19/2024 9:13 AM EDT [facility] Basophils Absolute 0.01 0.00 - 0.10 10*3/uL LAB HEMATOLOGY METHOD 09/19/2024 9:13 AM EDT [facility] Immature Granulocytes Absolute 0.01 0.00 - 0.06 10*3/uL LAB HEMATOLOGY METHOD 09/19/2024 9:13 AM EDT [facility] Blood Blood sample taken from central line / Unknown (Port) Long-term Catheter / Unknown 09/19/2024 7:29 AM EDT 09/19/2024 8:08 AM EDT Narrative [facility] - 09/19/2024 9:13 AM EDT Therapeutic decision making should be based on absolute values, rather than percentages. New Mckinney MD LAB BLOOD ORDERABLES Final Re sult [facility] [address] [place] [address] * Bone marrow exam (09/19/2024 7:29 AM EDT) Case Report Bone Marrow Case: [id number] Authorizing Provider: New Mckinney MD Collected: 09/19/2024 0729 Ordering Location: [facility] Hematology/BMT and Received: 09/19/2024 1216 Cellular Therapy Program Pathologist: Lisandra Epstein MD Specimens: A) - Bone Marrow Aspirate, right B) - Bone Marrow Biopsy, right C) - Peripheral Blood for Bone Marrow 2:53 PM EDT [facility] Final Diagnosis PERIPHERAL BLOOD AND BONE MARROW, RIGHT POSTERIOR ILIAC CREST, (ASPIRATE SMEAR, AND CORE BIOPSY): - HYPOCELLULAR BONE MARROW WITH MARKEDLY DECREASED MEGAKARYOCYTES; NO SIGNIFICANT DYSPOIESIS OR INCREASE IN BLASTS. 2:53 PM EDT [facility] at 1453 EDT Clinical Information AML 2:53 PM EDT [facility] CBC and Differential PERIPHERAL [...] blasts are not seen. 2:53 PM EDT [facility] Bone Marrow Differential BONE MARROW DIFFERENTIAL: 200 cells Normal Patient Neutrophils 15-50 34 Metamyelocytes 4-19 3 Myelocytes 1-18 10 Promyelocytes 1-8 1 Blasts 0-2 1 Monocytes 0-5 4 Erythroid 16-38 22 Lymphocytes 3-24 13 Eosinophils 0-6 8 Basophils 0-2 0 Plasma cells 0-4 4 Other 2:53 PM EDT [facility] Bone Marrow Aspirate and [...] Bone trabeculae are unremarkable. 2:53 PM EDT [facility] Special and Immunohistochemical Stains Special Stain: A1-1 Vazquez-Giemsa A1-2 Vazquez-Giemsa A1-3 Vazquez-Giemsa C1-1 Vazquez-Giemsa IHC: B1-2 CD34 All controls show appropriate reactivity. All immunohistochemis try, in situ hybridization, and histochemical tests were developed by and are performed at the [facility], [address] [place] [address]. All tests reported here, except those addressing [...] negativity on decalcified specimens. 2:53 PM EDT [facility] Flow Cytometry Interpretation MIXED MARROW ELEMENTS WITH NO EVIDENCE OF INCREASED BLASTS OR ABNORMAL LYMPHOID POPULATIONS ([id number]). 5 2:53 PM EDT [facility] CYTOGENETICS/MOLECULA R INTERPRETATION Correlation with cytogenetic/molec ular analysis is suggested. 5 2:53 PM EDT [facility] Gross Description B. RIGHT A single specimen is received in formalin labeled bone marrow biopsy right posterior iliac crest and consists of 2 piece(s) of red/white tissue measuring 2.1/0.3 cm in length 0.2 cm in diameter. The specimen is submitted in to Histology for decalcification and routine processing. Cold Time: <1m 2:53 PM EDT [facility] Note: A resident was involved in the service. I attest I examined the relevant preparations for the specimens and confirmed the diagnosis or interpretation. 5 2:53 PM EDT [facility] Bone Marrow Peripheral blood [...] MD LAB PATHOLOGY ORDERABLES Tracy stinson Result [facility] [address] [place] [address] * (ABNORMAL) Comprehensive Metabolic Panel, Plasma (07/30/2024 8:14 AM EDT) Only the most recent of2 resultswithin the time period is included. Glucose, Plasma 142(H) 74 - 99 mg/dL 07/30/2024 8:56 AM EDT [facility] BUN, Plasma 24(H) 8 - 23 mg/dL 07/30/2024 8:56 AM EDT [facility] Creatinine, Plasma 1.06 0.60 - 1.10 mg/dL 07/30/2024 8:56 AM EDT [facility] BUN/Creatinine Ratio 23 07/30/2024 8:56 AM EDT [facility] Sodium, Plasma 140 136 - 145 mmol/L 07/30/2024 8:56 AM EDT [facility] Potassium, Plasma 4.1 3.6 - 4.9 mmol/L 07/30/2024 8:56 AM EDT [facility] Chloride, Plasma 107 97 - 107 mmol/L 07/30/2024 8:56 AM EDT [facility] CO2, Plasma 23 22 - 29 mmol/L 07/30/2024 8:56 AM EDT [facility] Anion Gap 10 6 - 16 mmol/L 07/30/2024 8:56 AM EDT [facility] Total Calcium, Plasma 9.9 8.9 - 10.2 mg/dL 07/30/2024 8:56 AM EDT [facility] Total Protein 6.1(L) 6.3 - 7.9 g/dL 07/30/2024 8:56 AM EDT [facility] Albumin, Plasma 3.7 3.5 - 5.2 g/dL 07/30/2024 8:56 AM EDT [facility] AST, Plasma 30 10 - 35 U/L 07/30/2024 8:56 AM EDT [facility] ALT, Plasma 11 10 - 35 U/L 07/30/2024 8:56 AM EDT [facility] Alkaline Phosphatase, Plasma 35(L) 46 - 142 U/L 07/30/2024 8:56 AM EDT [facility] Total Bilirubin, Plasma 0.3 0.2 - 1.1 mg/dL 07/30/2024 8:56 AM EDT [facility] eGFRcr 55.6 mL/min/1.7 3m*2 07/30/2024 8:56 AM EDT [facility] Comment:Reported eGFRcr in m L/min/1.73m2 is based the CKD-EPI 2020 equation that does not use a race coefficient. Blood Venous blood specimen / Unknown (Port) Long-term Catheter / Unknown 07/30/2024 8:14 AM EDT 07/30/2024 8:27 AM EDT us Zonia Hoffman APRN LAB BLOOD ORDERABLES Final Res ult Performing Organization Address City/[facility]/ZIP Co de Phone Number [facility] [address] [place] [address] * Hepatitis C Antibody w/Reflex to HCV Quant PCR (01/07/2024 8:42 AM EDT) Hepatitis C Antibody Negative Negative 01/07/2024 10:13 AM EDT [facility] Blood Venous blood specimen / Unknown Venipuncture / Unknown 01/07/2024 8:42 AM EDT 01/07/2024 9:25 AM EDT us New Mckinney MD LAB BLOOD ORDERABLES Final Re sult Performing Organization Address City/[facility]/ZIP Co de Phone Number [facility] [address] [place] [address] from Last 3 Months or Most Recently Relevant to Health Maintenance Insurance MEDICARE [facility] Care Teams Pesticide Applicator Relationship Specialty Start Date End Date Jevon Vazquez MD [address] [place] [address] #1 #1 [place] [phone] PCP - General 03/23/22
--- OUTSIDE RECORDS SUMMARY | 2024-09-24 09:09 | XMS_ITS | Encounter Summary ---
Author Organization Healthcare Address [address] [place] [address] Care Team Providers Care Remotely Piloted Vehicle Controller Name Role Phone Jevon Vazquez MD Primary Care Provider [phone] Encounter Details Date Type Department Care Team [...] Hematology/BMT and Cellular Therapy Program [address] [phone] 09/30/2024 9:30 AM EDT Office Visit [facility] Hematology/BMT and Cellular Therapy Program [address] [phone] Zonia Hoffman, ENROLLMENT SERVICES VICE PRESIDENT 800 [facility] [address] [place] [phone] 09/30/2024 11:00 AM EDT Appointment [facility] [address] [place] [address] 10/01/2024 8:30 AM EDT Appointment [facility] [address] [place] [address] 10/02/2024 8:00 AM EDT Appointment [facility] [address] [place] [address] 10/03/2024 8:00 AM EDT Appointment [facility] [address] [place] [address] 10/04/2024 8:00 AM EDT Appointment [facility] [address] [place] [address] 10/05/2024 8:00 AM EDT Appointment [facility] [address] [place] [address] 10/06/2024 8:00 AM EDT Appointment [facility] [address] [place] [address] documented as of this encounter Visit Diagnoses Not on filedocumented in this encounter Additional Health Concerns Assessment Noted Time A fall risk assessment has been complete d for the patient 07/30/2024 8:29 AM EDT A Body Mass Index follow-up plan has been documented for the patient 05/28/2024 1:52 PM EST documented as of this encounter Care Teams Remotely Piloted Vehicle Controller Relationship Specialty Start Date End Date Jevon Vazquez MD [address] [place] [address] #1 #1 [place] [address] PCP - General 03/23/22 documented as of this encounter
[2024-09-24 09:24] LABS: Basophils % 0.5 % (0.1-2.0); Eosinophils # 0.1 Kmm3 (0.0-0.4); Eosinophils % 2.4 % (0.1-12.0); Hematocrit 21.2 % (37.0-47.0); Hemoglobin 7.2 g/dL (12.2-16.2); Immature Granulocytes # 0 10^3uL; Immature Granulocytes % 0 %; Lymphocytes # 0.9 K/mm3 (0.7-4.5); Lymphocytes % 41.4 % (10-50); Mean Corpuscular Hemoglobin 39.8 pg (27.0-31.2); Mean Corpuscular Volume 117.1 fl (81-99); Mean Platelet Volume 12.1 fl (7.4-10.4); Monocytes # 0.2 K/mm3 (0.1-1.0); Monocytes % 7.6 % (1.7-9.3); Neutrophils % 48.1 % (37.0-80.0); Nucleated Red Blood Cells # 0 10^3/uL; Nucleated Red Blood Cells % 0 %; Red Blood Count 1.81 M/mm3 (4.20-5.40); Red Cell Distribution Width 19.9 % (11.5-17.5); Red Cell Distribution Width-SD 82.3 fL; White Blood Count 2.1 K/mm3 (4.8-10.8)
[2024-09-24 09:27] LABS: Chloride 110 mmol/L (98-107)
[2024-09-24 09:28] LABS: Albumin Level 3.6 g/dl (3.5-5.0); Platelet Count 22 K/mm3 (142-424); Potassium 3.9 mmoL/L (3.5-5.1); Sodium 139 mmol/L (136-145)
[2024-09-24 09:30] LABS: Blood Urea Nitrogen 21 mg/dl (7-17); Creatinine Clearance Estimated 46 mL/min (50-200); Estimated Glomerular Filt Rate 61 ml/min (>60); GFR (African American) 74 ML/MIN (>60)
[2024-09-24 09:31] LABS: Alanine Aminotransferase 14 U/L (12-78); Albumin/Globulin Ratio 1.7 (1.1-1.8); Alkaline Phosphatase 41 U/L (38-126); Anion Gap 7.9 mEq/L (5-15); Aspartate Amino Transferase 36 U/L (14-36); Bilirubin,Total 0.2 mg/dl (0.2-1.3); Calcium 9.5 mg/dl (8.4-10.2); Carbon Dioxide 25 mmol/L (22.0-30.0); Globulin 2.1 g/dL (1.3-3.2); Glucose 138 mg/dl (74-100); Total Protein,Serum 5.7 g/dl (6.3-8.2)
[2024-09-24] MEDS: SODIUM CHLORIDE 0.9% 10ML FLUSH SYRINGE 10 ML IV (09:49)
== END 2024-09-24 09:35 | disposition home or self-care (01) ==
LOC: INF 09:02
PROVIDERS: PCP Family Medicine; Visit Provider Internal Medicine Medical Oncology
DX: C92.00 Acute myeloblastic leukemia, not having achieved remission (principal)
CPT/HCPCS: 36591; 80053; 85025; J1642

== ENCOUNTER 2024-09-26 08:55 | Outpatient (CLI) | payer MEDICARE, BC, SELFPAY ==
--- OUTSIDE RECORDS SUMMARY | 2024-07-30 08:00 | XMS_ITS | Encounter Summary ---
Author Organization [facility] Address [address] [place] [address] Care Team Providers Care Candy Decorator Name Role Phone Jevon Vazquez MD Primary Care Provider [phone] Reason for Visit * Reason Comments Labs Only Encounter Details Date Type Department Care Team ([facility] Contact Info) Description 07/30/2024 8:00 AM EDT Clinical Support [facility] Hematology/BMT and Cellular Therapy Program [address] [phone] Pancytopenia Social History Tobacco Use Types Packs/Day [...] Upcoming Encounters Date Type Department Care Team ([facility] Contact Info) Description 09/30/2024 9:00 AM EDT Clinical Support [facility] Hematology/BMT and Cellular Therapy Program [address] [phone] 09/30/2024 9:30 AM EDT Office Visit [facility] Hematology/BMT and Cellular Therapy Program [address] [phone] Zonia Hoffman, LEAD BUSINESS SYSTEMS ANALYST 800 [facility] [address] [place] [phone] 09/30/2024 11:00 AM EDT Appointment [facility] [address] [place] [address] 10/01/2024 8:30 AM EDT Appointment [facility] 1 [address] [place] [address] 10/02/2024 8:00 AM EDT Appointment [facility] [address] [place] [address] 10/03/2024 8:00 AM EDT Appointment [facility] 1 [address] [place] [address] 10/04/2024 8:00 AM EDT Appointment [facility] [address] [place] [address] 10/05/2024 8:00 AM EDT Appointment [facility] [address] [place] [address] 10/06/2024 8:00 AM EDT Appointment [facility] [address] [place] [address] 10/28/2024 11:00 AM EDT Clinical Support [facility] Hematology/BMT and Cellular Therapy Program [address] [phone] 10/28/2024 11:30 AM EDT Office Visit [facility] Hematology/BMT and Cellular Therapy Program [address] [phone] Zonia Hoffman, LEAD BUSINESS SYSTEMS ANALYST 800 [facility] [address] [place] [phone] documented as of this encounter Procedures Procedure Name Priority Date/Time Associated Diagnosis Comments CBC WITH AUTO DIFFERENTIAL Routine 07/30/2024 8:14 AM EDT Pancytopenia COMPREHENSIVE METABOLIC PANEL, PLASMA Routine 07/30/2024 8:14 AM EDT Pancytopenia documented in this encounter Results * (ABNORMAL) Comprehensive Metabolic Panel, Plasma (07/30/2024 8:14 AM EDT) Glucose, Plasma 142(H) 74 - 99 mg/dL 07/30/2024 8:56 AM EDT [facility] BUN, Plasma 24(H) 8 - 23 mg/dL 07/30/2024 8:56 AM EDT [facility] Creatinine, Plasma 1.06 0.60 - 1.10 mg/dL 07/30/2024 8:56 AM EDT [facility] BUN/Creatinine Ratio 23 07/30/2024 8:56 AM EDT [facility] Sodium, Plasma 140 136 - 145 mmol/L 07/30/2024 8:56 AM EDT [facility] Potassium, Plasma 4.1 3.6 - 4.9 mmol/L 07/30/2024 8:56 AM EDT [facility] Chloride, Plasma 107 97 - 107 mmol/L 07/30/2024 8:56 AM EDT [facility] CO2, Plasma 23 22 - 29 mmol/L 07/30/2024 8:56 AM EDT [facility] Anion Gap 10 6 - 16 mmol/L 07/30/2024 8:56 AM EDT [facility] Total Calcium, Plasma 9.9 8.9 - 10.2 mg/dL 07/30/2024 8:56 AM EDT [facility] Total Protein 6.1(L) 6.3 - 7.9 g/dL 07/30/2024 8:56 AM EDT [facility] Albumin, Plasma 3.7 3.5 - 5.2 g/dL 07/30/2024 8:56 AM EDT [facility] AST, Plasma 30 10 - 35 U/L 07/30/2024 8:56 AM EDT [facility] ALT, Plasma 11 10 - 35 U/L 07/30/2024 8:56 AM EDT [facility] Alkaline Phosphatase, Plasma 35(L) 46 - 142 U/L 07/30/2024 8:56 AM EDT [facility] Total Bilirubin, Plasma 0.3 0.2 - 1.1 mg/dL 07/30/2024 8:56 AM EDT [facility] eGFRcr 55.6 mL/min/1.7 3m*2 07/30/2024 8:56 AM EDT [facility] Comment:Reported eGFRcr in m L/min/1.73m2 is based the CKD-EPI 2020 equation that does not use a race coefficient. Blood Venous blood specimen / Unknown (Port) Long-term Catheter / Unknown 07/30/2024 8:14 AM EDT 07/30/2024 8:27 AM EDT us Zonia Hoffman LEAD BUSINESS SYSTEMS ANALYST LAB BLOOD ORDERABLES Final Res ult [facility] [address] [place] [address] * (ABNORMAL) CBC and Differential (07/30/2024 8:14 AM EDT) WBC Count 2.68(L) 3.70 - 10.30 10*3/uL LAB HEMATOLOGY METHOD 07/30/2024 8:51 AM EDT [facility] RBC Count 2.24(L) 3.90 - 5.20 10*6/uL LAB HEMATOLOGY METHOD 07/30/2024 8:51 AM EDT [facility] HGB 7.2(L) 11.2 - 15.7 g/dL LAB HEMATOLOGY METHOD 07/30/2024 8:51 AM EDT [facility] HCT 21.3(L) 34.0 - 45.0 % LAB HEMATOLOGY METHOD 07/30/2024 8:51 AM EDT [facility] Platelet Count 15(LL) 155 - 369 10*3/uL LAB HEMATOLOGY METHOD 07/30/2024 8:51 AM EDT [facility] MCV 95 79 - 98 fL LAB HEMATOLOGY METHOD 07/30/2024 8:51 AM EDT [facility] MCH 32.1(H) 26.0 - 32.0 pg LAB HEMATOLOGY METHOD 07/30/2024 8:51 AM EDT [facility] MCHC 33.8 30.7 - 35.5 g/dL LAB HEMATOLOGY METHOD 07/30/2024 8:51 AM EDT [facility] RDW 23.2(H) 11.5 - 14.5 % LAB HEMATOLOGY METHOD 07/30/2024 8:51 AM EDT [facility] MPV 8.7(L) 8.8 - 12.5 fL LAB HEMATOLOGY METHOD 07/30/2024 8:51 AM EDT [facility] nRBC 0.0 <=0.0 per 100 WBCs LAB HEMATOLOGY METHOD 07/30/2024 8:51 AM EDT [facility] Differential Type Automated LAB HEMATOLOGY METHOD 07/30/2024 8:51 AM EDT [facility] Neutrophils % 48 % LAB HEMATOLOGY METHOD 07/30/2024 8:51 AM EDT [facility] Lymphocytes % 41 % LAB HEMATOLOGY METHOD 07/30/2024 8:51 AM EDT [facility] Monocytes % 10 % LAB HEMATOLOGY METHOD 07/30/2024 8:51 AM EDT [facility] Eosinophils % 1 % LAB HEMATOLOGY METHOD 07/30/2024 8:51 AM EDT [facility] Basophils % 0 % LAB HEMATOLOGY METHOD 07/30/2024 8:51 AM EDT [facility] Immature Granulocytes % 0 % LAB HEMATOLOGY METHOD 07/30/2024 8:51 AM EDT [facility] Neutrophils Absolute 1.25(L) 1.60 - 6.10 10*3/uL LAB HEMATOLOGY METHOD 07/30/2024 8:51 AM EDT [facility] Lymphocytes Absolute 1.11(L) 1.20 - 3.90 10*3/uL LAB HEMATOLOGY METHOD 07/30/2024 8:51 AM EDT [facility] Monocytes Absolute 0.28(L) 0.30 - 0.90 10*3/uL LAB HEMATOLOGY METHOD 07/30/2024 8:51 AM EDT [facility] Eosinophils Absolute 0.03 0.00 - 0.50 10*3/uL LAB HEMATOLOGY METHOD 07/30/2024 8:51 AM EDT [facility] Basophils Absolute 0.00 0.00 - 0.10 10*3/uL LAB HEMATOLOGY METHOD 07/30/2024 8:51 AM EDT [facility] Immature Granulocytes Absolute 0.01 0.00 - 0.06 10*3/uL LAB HEMATOLOGY METHOD 07/30/2024 8:51 AM EDT [facility] Blood Venous blood specimen / Unknown (Port) Long-term Catheter / Unknown 07/30/2024 8:14 AM EDT 07/30/2024 8:26 AM EDT Narrative [facility] - 07/30/2024 8:51 AM EDT Therapeutic decision making should be based on absolute values, rather than percentages. 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
--- OUTSIDE RECORDS SUMMARY | 2024-07-30 08:30 | XMS_ITS | Encounter Summary ---
Author Organization Healthcare Address [address] [place] [address] Care Team Providers Care Railroad Detective Name Role Phone Jevon Vazquez MD Primary Care Provider [phone] Reason for Visit * Reason Comments Acute Myeloid Leukemia Encounter Details Date Type Department Care Team ([facility] st Contact Info) Description 07/30/2024 8:30 AM EDT Office Visit [facility] Hematology/BMT and Cellular Therapy Program [address] [phone] Zonia Hoffman, VENDOR QUALITY SUPERVISOR 800 [facility] [address] [place] [address] Pancytopenia (Primary Dx) Social History Tobacco Use [...] Notes * Progress Notes - Zonia Hoffman, VENDOR QUALITY SUPERVISOR - 07/30/2024 8:30 AM EDT HEMATOLOGY ONCOLOGY [...] k/??L. 12/2023- seen by Dr. 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 Next generation sequencing: Abnormal: TP53 (c.814G>A; p.[id number]) frequency 45%, DMNT3A (c.1522delC; p.[id number]) frequency 48%, RUNX1 (c.336_338delGCC; p.Ips832qme) frequency 35% Azacitidine + Venetoclax Cycle 1: [...] - Continue local lab checks MWF at [facility] Allogenic transplant planning. 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 However, given her older age > 70, she would benefit from a geriatric BMT program and will make referrals should she be interested. Expected pancytopenia related to chemotherapy/AML. Check CBC x 3 times/week at [facility] Labs reviewed today, Hgb 7.2 [...] charts, reviewing results, and documenting. RODDY Cristina [facility] HEMATOLOGY/BMT AND CELLULAR THERAPY PROGRAM 800 [facility] [phone] 40 minutes was spent on this encounter; [...] Upcoming Encounters Date Type Department Care Team ([facility] st Contact Info) Description 09/30/2024 9:00 AM EDT Clinical Support [facility] Hematology/BMT and Cellular Therapy Program 750 [facility], [address] [place] [address] 09/30/2024 9:30 AM EDT Office Visit [facility] CC Hematology/BMT and Cellular Therapy Program [address] [place] [phone] Zonia Hoffman, VENDOR QUALITY SUPERVISOR 800 [facility] Cancer [address] [phone] 09/30/2024 11:00 AM EDT Appointment [facility] 1 [address] [place] [address] 10/01/2024 8:30 AM EDT Appointment [facility] 1 [address] [place] [address] 10/02/2024 8:00 AM EDT Appointment [facility] 1 [address] [place] [address] 10/03/2024 8:00 AM EDT Appointment [facility] 1 [address] [place] [address] 10/04/2024 8:00 AM EDT Appointment [facility] 1 [address] [place] [address] 10/05/2024 8:00 AM EDT Appointment [facility] Infusion Clinic 1 [address] [place] [address] 10/06/2024 8:00 AM EDT Appointment [facility] Infusion Clinic 1 [address] [place] [address] 10/28/2024 11:00 AM EDT Clinical Support [facility] Hematology/BMT and Cellular Therapy Program [address] [place] [address] 10/28/2024 11:30 AM EDT Office Visit [facility] Hematology/BMT and Cellular Therapy Program [address] [place] [phone] Zonia Hoffman, VENDOR QUALITY SUPERVISOR 800 [facility] [address] [place] [phone] documented as of this encounter Results * (ABNORMAL) Comprehensive Metabolic Panel, Plasma (07/30/2024 8:14 AM EDT) [facility] Glucose, Plasma 142(H) 74 - 99 mg/dL 07/30/2024 8:56 AM EDT [facility] BUN, Plasma 24(H) 8 - 23 mg/dL 07/30/2024 8:56 AM EDT [facility] Creatinine, Plasma 1.06 0.60 - 1.10 mg/dL 07/30/2024 8:56 AM EDT [facility] BUN/Creatinine Ratio 23 07/30/2024 8:56 AM EDT [facility] Sodium, Plasma 140 136 - 145 mmol/L 07/30/2024 8:56 AM EDT [facility] Potassium, Plasma 4.1 3.6 - 4.9 mmol/L 07/30/2024 8:56 AM EDT [facility] Chloride, Plasma 107 97 - 107 mmol/L 07/30/2024 8:56 AM EDT [facility] CO2, Plasma 23 22 - 29 mmol/L 07/30/2024 8:56 AM EDT [facility] Anion Gap 10 6 - 16 mmol/L 07/30/2024 8:56 AM EDT [facility] Total Calcium, Plasma 9.9 8.9 - 10.2 mg/dL 07/30/2024 8:56 AM EDT [facility] Total Protein 6.1(L) 6.3 - 7.9 g/dL 07/30/2024 8:56 AM EDT [facility] Albumin, Plasma 3.7 3.5 - 5.2 g/dL 07/30/2024 8:56 AM EDT [facility] AST, Plasma 30 10 - 35 U/L 07/30/2024 8:56 AM EDT [facility] ALT, Plasma 11 10 - 35 U/L 07/30/2024 8:56 AM EDT [facility] Alkaline Phosphatase, Plasma 35(L) 46 - 142 U/L 07/30/2024 8:56 AM EDT [facility] Total Bilirubin, Plasma 0.3 0.2 - 1.1 mg/dL 07/30/2024 8:56 AM EDT [facility] eGFRcr 55.6 mL/min/1.7 3m*2 07/30/2024 8:56 AM EDT [facility] Comment:Reported eGFRcr in m L/min/1.73m2 is based the CKD-EPI 2020 equation that does not use a race coefficient. Blood Venous blood specimen / Unknown (Port) Long-term Catheter / Unknown 07/30/2024 8:14 AM EDT 07/30/2024 8:27 AM EDT us Zonia Hoffman VENDOR QUALITY SUPERVISOR LAB BLOOD ORDERABLES Final Res ult [facility] [address] [place] [address] * (ABNORMAL) CBC and Differential (07/30/2024 8:14 AM EDT) WBC Count 2.68(L) 3.70 - 10.30 10*3/uL LAB HEMATOLOGY METHOD 07/30/2024 8:51 AM EDT [facility] RBC Count 2.24(L) 3.90 - 5.20 10*6/uL LAB HEMATOLOGY METHOD 07/30/2024 8:51 AM EDT [facility] HGB 7.2(L) 11.2 - 15.7 g/dL LAB HEMATOLOGY METHOD 07/30/2024 8:51 AM EDT [facility] HCT 21.3(L) 34.0 - 45.0 % LAB HEMATOLOGY METHOD 07/30/2024 8:51 AM EDT [facility] Platelet Count 15(LL) 155 - 369 10*3/uL LAB HEMATOLOGY METHOD 07/30/2024 8:51 AM EDT [facility] MCV 95 79 - 98 fL LAB HEMATOLOGY METHOD 07/30/2024 8:51 AM EDT [facility] MCH 32.1(H) 26.0 - 32.0 pg LAB HEMATOLOGY METHOD 07/30/2024 8:51 AM EDT [facility] MCHC 33.8 30.7 - 35.5 g/dL LAB HEMATOLOGY METHOD 07/30/2024 8:51 AM EDT [facility] RDW 23.2(H) 11.5 - 14.5 % LAB HEMATOLOGY METHOD 07/30/2024 8:51 AM EDT [facility] MPV 8.7(L) 8.8 - 12.5 fL LAB HEMATOLOGY METHOD 07/30/2024 8:51 AM EDT [facility] nRBC 0.0 <=0.0 per 100 WBCs LAB HEMATOLOGY METHOD 07/30/2024 8:51 AM EDT [facility] Differential Type Automated LAB HEMATOLOGY METHOD 07/30/2024 8:51 AM EDT [facility] Neutrophils % 48 % LAB HEMATOLOGY METHOD 07/30/2024 8:51 AM EDT [facility] Lymphocytes % 41 % LAB HEMATOLOGY METHOD 07/30/2024 8:51 AM EDT [facility] Monocytes % 10 % LAB HEMATOLOGY METHOD 07/30/2024 8:51 AM EDT [facility] Eosinophils % 1 % LAB HEMATOLOGY METHOD 07/30/2024 8:51 AM EDT [facility] Basophils % 0 % LAB HEMATOLOGY METHOD 07/30/2024 8:51 AM EDT [facility] Immature Granulocytes % 0 % LAB HEMATOLOGY METHOD 07/30/2024 8:51 AM EDT [facility] Neutrophils Absolute 1.25(L) 1.60 - 6.10 10*3/uL LAB HEMATOLOGY METHOD 07/30/2024 8:51 AM EDT [facility] Lymphocytes Absolute 1.11(L) 1.20 - 3.90 10*3/uL LAB HEMATOLOGY METHOD 07/30/2024 8:51 AM EDT [facility] Monocytes Absolute 0.28(L) 0.30 - 0.90 10*3/uL LAB HEMATOLOGY METHOD 07/30/2024 8:51 AM EDT [facility] Eosinophils Absolute 0.03 0.00 - 0.50 10*3/uL LAB HEMATOLOGY METHOD 07/30/2024 8:51 AM EDT [facility] Basophils Absolute 0.00 0.00 - 0.10 10*3/uL LAB HEMATOLOGY METHOD 07/30/2024 8:51 AM EDT [facility] Immature Granulocytes Absolute 0.01 0.00 - 0.06 10*3/uL LAB HEMATOLOGY METHOD 07/30/2024 8:51 AM EDT [facility] Blood Venous blood specimen / Unknown (Port) Long-term Catheter / Unknown 07/30/2024 8:14 AM EDT 07/30/2024 8:26 AM EDT Narrative [facility] - 07/30/2024 8:51 AM EDT Therapeutic decision making should be based on absolute values, rather than percentages. 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
--- OUTSIDE RECORDS SUMMARY | 2024-09-19 07:30 | XMS_ITS | Encounter Summary ---
Author Organization [facility] Address [address] [place] [address] Care Team Providers Care Fractionation Plant Supervisor Name Role Phone Jevon Vazquez MD Primary Care Provider [phone] Reason for Visit * Reason Comments Nurse Visit Encounter Details Date Type Department Care Team ([facility] Contact Info) Description 09/19/2024 7:30 AM EDT Clinical Support [facility] Hematology/BMT and Cellular Therapy Program [address] [phone] Social History Tobacco Use Types Packs/Day Years [...] ([facility] Contact Info) Description 09/30/2024 9:00 AM EDT Clinical Support [facility] Hematology/BMT and Cellular Therapy Program [address] [phone] 09/30/2024 9:30 AM EDT Office Visit [facility] Hematology/BMT and Cellular Therapy Program [address] [phone] Zonia Hoffman, RUBBER COMPOUNDER 800 [facility] [address] [place] [address] 09/30/2024 11:00 AM EDT Appointment [facility] 1 [address] [place] [address] 10/01/2024 8:30 AM EDT Appointment [facility] 1 [address] [place] [address] 10/02/2024 8:00 AM EDT Appointment [facility] 1 [address] [place] [address] 10/03/2024 8:00 AM EDT Appointment [facility] 1 [address] [place] [address] 10/04/2024 8:00 AM EDT Appointment [facility] 1 [address] [place] [address] 10/05/2024 8:00 AM EDT Appointment [facility] 1 [address] [place] [address] 10/06/2024 8:00 AM EDT Appointment [facility] 1 [address] [place] [address] 10/28/2024 11:00 AM EDT Clinical Support [facility] Hematology/BMT and Cellular Therapy Program [address] [address] 10/28/2024 11:30 AM EDT Office Visit [facility] Hematology/BMT and Cellular Therapy Program [address] [address] Zonia Hoffman, RUBBER COMPOUNDER 800 [facility] [address] [place] [address] documented as of this encounter Visit Diagnoses Not on filedocumented in this encounter Additional Health Concerns Assessment Noted Time A fall risk assessment has been complete d for the patient 09/19/2024 8:38 AM EDT A Body Mass Index follow-up plan has been documented for the patient 05/28/2024 1:52 PM EST documented as of this encounter Care Teams Fractionation Plant Supervisor Relationship Specialty Start Date End Date Jevon Vazquez MD [address] [place] [address] #1 #1 [place] [address] PCP - General 03/23/22 documented as of this encounter
--- OUTSIDE RECORDS SUMMARY | 2024-09-19 09:30 | XMS_ITS | Encounter Summary ---
Author Organization Healthcare Address [address] [place] [address] Care Team Providers Care Horse Stud Worker Name Role Phone Jevon Vazquez MD Primary Care Provider [phone] Reason for Visit * Reason Comments Follow-up Encounter Details Date Type Department Care Team (Latest Contact Info) Description 09/19/2024 9:30 AM EDT Clinical Support [facility] Cancer Acute Treatment Clinic [address] [place] [address] Acute myeloid leukemia not having achieved remission [...] Upcoming Encounters Date Type Department Care Team ([facility] st Contact Info) Description 09/30/2024 9:00 AM EDT Clinical Support [facility] Hematology/BMT and Cellular Therapy Program [address] [place] [address] 09/30/2024 9:30 AM EDT Office Visit [facility] Hematology/BMT and Cellular Therapy Program [address] [address] Zonia Hoffman, EXECUTIVE TALENT ACQUISITION CONSULTANT 800 [facility] [address] [place] [address] 09/30/2024 11:00 AM EDT Appointment [facility] Infusion [facility] 1 [address] [place] [address] 10/01/2024 8:30 AM EDT Appointment [facility] Infusion [facility] 1 [address] [place] [address] 10/02/2024 8:00 AM EDT Appointment [facility] Infusion [facility] 1 [address] [place] [address] 10/03/2024 8:00 AM EDT Appointment [facility]fusion [facility] 1 [address] [place] [address] 10/04/2024 8:00 AM EDT Appointment [facility] 1 [address] [place] [address] 10/05/2024 8:00 AM EDT Appointment [facility] Infusion [facility] 1 [address] [place] [address] 10/06/2024 8:00 AM EDT Appointment [facility] Infusion [facility] 1 [address] [place] [address] 10/28/2024 11:00 AM EDT Clinical Support [facility] Hematology/BMT and Cellular Therapy Program [address] [place] [address] 10/28/2024 11:30 AM EDT Office Visit [facility] Hematology/BMT and Cellular Therapy Program [address] [address] Zonia Hoffman, EXECUTIVE TALENT ACQUISITION CONSULTANT 800 [facility] [address] [place] [address] documented as of this encounter Procedures Procedure Name Priority Date/Time Associated Diagnosis Comments PLATELET COUNT, BLOOD STAT 09/19/2024 10:04 AM EDT PREPARE PLATELETS Routine 09/19/2024 9:0 8 AM EDT documented in this encounter Results * (ABNORMAL) Platelet count (09/19/2024 10:04 AM EDT) Platelet Count 61(L) 155 - 369 10*3/uL LAB HEMATOLOGY METHOD 09/19/2024 10:19 AM EDT [facility] Blood Blood sample taken from central line / Unknown (Port) Long-term Catheter / Unknown 09/19/2024 10:04 AM EDT 09/19/2024 10:18 AM EDT us New Mckinney MD LAB BLOOD ORDERABLES Final Re sult [facility] [address] [place] [address] * Transfuse platelets, Irradiated (09/19/2024 10:02 AM EDT) us Lexi Ferraro APRN BLOOD TRANSFUSION ORDERABL ES Final Result * Prepare Leukocyte Reduced Platelets (09/19/2024 9:08 AM EDT) Product Code [id number] CH BLOO D BANK Dispense Status Transfused BLOOD BANK Blood Expiration Date [id number] BLOOD BANK Unit Number [id number] CH B LOOD BANK Product Blood Type 6200 CH BLOOD BANK Blood Type A+ CH BLOOD BANK us Provider Not In System BLOOD BANK PRODUCT ORD ERABLES Final Result BLOOD BANK [address] [place] [address], documented in this encounter Visit Diagnoses Diagnosis [...] documented as of this encounter Care Teams Horse Stud Worker Relationship Specialty Start Date End Date Jevon Vazquez MD [address] [place] [address] #1 #1 [place] [address] PCP - General 03/23/22 documented as of this encounter
--- OUTSIDE RECORDS SUMMARY | 2024-09-19 12:00 | XMS_ITS | Encounter Summary ---
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) Procedures Leukemia/Lymphoma - Immunophenotyping by Flow Cytometry New Mckinney MD 800 [facility] Cancer [address] [address] Phone: tel: fax: Referral ID Status Reason Start Date Expiration Date V isits Requested Visits Authorized [id number] Authorized 09/11/2024 03/13/2026 1 1 Encounter Details Date Type Department Care Team (Latest Contact Info) Description 09/19/2024 12:00 PM EDT Procedure Visit [facility] Hematology/BMT and Cellular Therapy Program [address] [phone] Lexi Ferraro, RODDY 800 [facility] Cancer [address] [address] Acute myeloid leukemia not having [...] to surronding structures. Alternatives discussed: Delayed treatment [place] protocol: Procedure explained and questions answered to [...] Upcoming Encounters Date Type Department Care Team ([facility] st Contact Info) Description 09/30/2024 9:00 AM EDT Clinical Support [facility] Hematology/BMT and Cellular Therapy Program [address] [address] 09/30/2024 9:30 AM EDT Office Visit [facility] Hematology/BMT and Cellular Therapy Program [address] [address] Zonia Hoffman APRN 800 [facility] [address] [place] [phone] 09/30/2024 11:00 AM EDT Appointment [facility] Infusion Clinic [address] [place] [address] 10/01/2024 8:30 AM EDT Appointment [facility] Infusion Clinic 1 [address] [place] [address] 10/02/2024 8:00 AM EDT Appointment [facility] Infusion Clinic 1 [address] [place] [address] 10/03/2024 8:00 AM EDT Appointment [facility] 1 [address] [place] [address] 10/04/2024 8:00 AM EDT Appointment [facility] 1 [address] [place] [address] 10/05/2024 8:00 AM EDT Appointment [facility] 1 [address] [place] [address] 10/06/2024 8:00 AM EDT Appointment [facility] 1 [address] [place] [address] 10/28/2024 11:00 AM EDT Clinical Support [facility] Hematology/BMT and Cellular Therapy Program [address] [place] [address] 10/28/2024 11:30 AM EDT Office Visit [facility] Hematology/BMT and Cellular Therapy Program [address] [phone] Zonia Hoffman, MUSEUM ATTENDANT 800 [facility] [address] [place] [phone] Pending Results Name Type Priority Associated Diagnoses [...] to surronding structures. Alternatives discussed: Delayed treatment [place] protocol: Procedure explained and questions answered to [...] at the site and an 11 gauge Transcripticshidi needle was inserted into the right posterior [...] Type Bone Marrow 09/24/2024 2:37 PM EDT [facility] Clinical Indication Myelodysplastic Syndrome 09/24/2024 2:37 PM EDT [facility] Specimen Adequacy Adequate 025 2:37 PM EDT [facility] Chromosome Analysis Result Giemsa-banded metaphase cells from unstimulated bone marrow cultures showed a 46,XX[20] chromosome pattern. 09/24/2024 2:37 PM EDT [facility] Interpretation Normal female chromosome analysis. No clonal abnormalities were detected at current resolution. Clinical correlation is recommended. # cells counted = 20 # cells analyzed = 20 # cells karyotyped = 2 Band resolution: 450-525 09/24/2024 2:37 PM EDT [facility] Pathologist Signature Reviewed by: Corey Tejada 09/24/2024 2:37 PM EDT [facility] Bone Marrow Non-blood Collection / Unknown 09/19/2024 7:29 AM EDT 09/19/2024 12:35 PM EDT us New Mckinney MD LAB CYTOGENETICS ORDERABLES F inal Result [facility] [address] [place] [address] * Leukemia/Lymphoma - Immunophenotyping by Flow Cytometry (09/19/2024 7:29 AM EDT) Clinical Indication AML 09/22/2024 10:29 AM EDT [facility] Flow Cytometry Interpretation A. BONE MARROW FOR FLOW CYTOMETRY: - MIXED MARROW ELEMENTS WITH NO EVIDENCE OF INCREASED BLASTS OR ABNORMAL LYMPHOID POPULATIONS, SEE COMMENT. 09/22/2024 10:29 AM EDT [facility] Comments CD45/side scatter analysis [...] surface light chains 09/22/2024 10:29 AM EDT [facility] Disclaimer This test was developed and its performance characteristics determined by the Immuno-Molecular Pathology Laboratory at the [facility]. It has not been cleared or approved [...] on the report. 09/22/2024 10:29 AM EDT [facility] Pathologist Signature Reviewed by: Lisandra Epstein MD 09/22/2024 10:29 AM EDT [facility] MRD Indicated Test Not Indicated 12/2024 10:29 AM EDT [facility] Bone Marrow Specimen from bone marrow obtained by aspiration / Unknown Non-blood Collection / Unknown 09/19/2024 7:29 AM EDT 09/19/2024 12:13 PM EDT us New Mckinney MD LAB FLOW CYTOMETRY ORDERABLES Final Result [facility] [address] [place] [address] * (ABNORMAL) CBC and differential (09/19/2024 7:29 AM EDT) WBC Count 2.70(L) 3.70 - 10.30 10*3/uL LAB HEMATOLOGY METHOD 09/19/2024 9:13 AM EDT [facility] RBC Count 1.86(L) 3.90 - 5.20 10*6/uL LAB HEMATOLOGY METHOD 09/19/2024 9:13 AM EDT [facility] HGB 7.1(L) 11.2 - 15.7 g/dL LAB HEMATOLOGY METHOD 09/19/2024 9:13 AM EDT [facility] HCT 21.5(L) 34.0 - 45.0 % LAB HEMATOLOGY METHOD 09/19/2024 9:13 AM EDT [facility] Platelet Count 14(LL) 155 - 369 10*3/uL LAB HEMATOLOGY METHOD 09/19/2024 9:13 AM EDT [facility] MCV 116(H) 79 - 98 fL LAB HEMATOLOGY METHOD 09/19/2024 9:13 AM EDT [facility] MCH 38.2(H) 26.0 - 32.0 pg LAB HEMATOLOGY METHOD 09/19/2024 9:13 AM EDT [facility] MCHC 33.0 30.7 - 35.5 g/dL LAB HEMATOLOGY METHOD 09/19/2024 9:13 AM EDT [facility] RDW 21.8(H) 11.5 - 14.5 % LAB HEMATOLOGY METHOD 09/19/2024 9:13 AM EDT [facility] MPV 13.5(H) 8.8 - 12.5 fL LAB HEMATOLOGY METHOD 09/19/2024 9:13 AM EDT [facility] nRBC 0.0 <=0.0 per 100 WBCs LAB HEMATOLOGY METHOD 09/19/2024 9:13 AM EDT [facility] Differential Type Automated LAB HEMATOLOGY METHOD 09/19/2024 9:13 AM EDT [facility] Neutrophils % 51 % LAB HEMATOLOGY METHOD 09/19/2024 9:13 AM EDT [facility] Lymphocytes % 41 % LAB HEMATOLOGY METHOD 09/19/2024 9:13 AM EDT [facility] Monocytes % 7 % LAB HEMATOLOGY METHOD 09/19/2024 9:13 AM EDT [facility] Eosinophils % 1 % LAB HEMATOLOGY METHOD 09/19/2024 9:13 AM EDT [facility] Basophils % 0 % LAB HEMATOLOGY METHOD 09/19/2024 9:13 AM EDT [facility] Immature Granulocytes % 0 % LAB HEMATOLOGY METHOD 09/19/2024 9:13 AM EDT [facility] Neutrophils Absolute 1.35(L) 1.60 - 6.10 10*3/uL LAB HEMATOLOGY METHOD 09/19/2024 9:13 AM EDT [facility] Lymphocytes Absolute 1.10(L) 1.20 - 3.90 10*3/uL LAB HEMATOLOGY METHOD 09/19/2024 9:13 AM EDT [facility] Monocytes Absolute 0.20(L) 0.30 - 0.90 10*3/uL LAB HEMATOLOGY METHOD 09/19/2024 9:13 AM EDT [facility] Eosinophils Absolute 0.03 0.00 - 0.50 10*3/uL LAB HEMATOLOGY METHOD 09/19/2024 9:13 AM EDT [facility] Basophils Absolute 0.01 0.00 - 0.10 10*3/uL LAB HEMATOLOGY METHOD 09/19/2024 9:13 AM EDT [facility] Immature Granulocytes Absolute 0.01 0.00 - 0.06 10*3/uL LAB HEMATOLOGY METHOD 09/19/2024 9:13 AM EDT [facility] Blood Blood sample taken from central line / Unknown (Port) Long-term Catheter / Unknown 09/19/2024 7:29 AM EDT 09/19/2024 8:08 AM EDT Narrative [facility] - 09/19/2024 9:13 AM EDT Therapeutic decision making should be based on absolute values, rather than percentages. us New Mckinney MD LAB BLOOD ORDERABLES Final Re sult [facility] [address] [place] [address] * Bone marrow exam (09/19/2024 7:29 AM EDT) Case Report Bone Marrow Case: [id number] Authorizing Provider: New Mckinney MD Collected: 09/19/2024 0729 Ordering Location: [facility] Hematology/BMT and Received: 09/19/2024 1216 Cellular Therapy Program Pathologist: Lisandra Epstein MD Specimens: A) - Bone Marrow Aspirate, right B) - Bone Marrow Biopsy, right C) - Peripheral Blood for Bone Marrow 4:30 PM EDT [facility] Cytogenetics Report, Addendum Chromosome Analysis Result Giemsa-banded metaphase cells from unstimulated bone marrow cultures showed a 46,XX[20] chromosome pattern. Interpretation Normal female chromosome analysis. No clonal abnormalities were detected at current resolution. Clinical correlation is recommended. 4:30 PM EDT [facility] Addendum electronically signed by Lisanrda Epstein MD on 09/24/2024 at 1630 EDT Final Diagnosis PERIPHERAL BLOOD AND BONE MARROW, RIGHT POSTERIOR ILIAC CREST, (ASPIRATE SMEAR, AND CORE BIOPSY): - HYPOCELLULAR BONE MARROW WITH MARKEDLY DECREASED MEGAKARYOCYTES; NO SIGNIFICANT DYSPOIESIS OR INCREASE IN BLASTS. 4:30 PM EDT [facility] at 1453 EDT Clinical Information AML 09/14 4:30 PM EDT [facility] CBC and Differential PERIPHERAL [...] blasts are not seen. 4:30 PM EDT [facility] Bone Marrow Differential BONE MARROW DIFFERENTIAL: 200 cells Normal Patient Neutrophils 15-50 34 Metamyelocytes 4-19 3 Myelocytes 1-18 10 Promyelocytes 1-8 1 Blasts 0-2 1 Monocytes 0-5 4 Erythroid 16-38 22 Lymphocytes 3-24 13 Eosinophils 0-6 8 Basophils 0-2 0 Plasma cells 0-4 4 Other 5 4:30 PM EDT [facility] Bone Marrow Aspirate and [...] trabeculae are unremarkable. 5 4:30 PM EDT [facility] Special and Immunohistochemical Stains Special Stain: A1-1 Vazquez-Giemsa A1-2 Vazquez-Giemsa A1-3 Vazquez-Giemsa C1-1 Vazquez-Giemsa IHC: B1-2 CD34 All controls show appropriate reactivity. All immunohistochemis try, in situ hybridization, and histochemical tests were developed by and are performed at the [facility], [address] [place] [address]. All tests reported here, except those addressing [...] on decalcified specimens. 5 4:30 PM EDT [facility] Flow Cytometry Interpretation MIXED MARROW ELEMENTS WITH NO EVIDENCE OF INCREASED BLASTS OR ABNORMAL LYMPHOID POPULATIONS ([id number]). 5 4:30 PM EDT [facility] CYTOGENETICS/MOLECULA R INTERPRETATION Correlation with cytogenetic/molec ular analysis is suggested. 5 4:30 PM EDT [facility] Gross Description B. RIGHT A single specimen is received in formalin labeled bone marrow biopsy right posterior iliac crest and consists of 2 piece(s) of red/white tissue measuring 2.1/0.3 cm in length 0.2 cm in diameter. The specimen is submitted in to Histology for decalcification and routine processing. Cold Time: <1m 4:30 PM EDT [facility] Note: A resident was involved in the service. I attest I examined the relevant preparations for the specimens and confirmed the diagnosis or interpretation. 5 4:30 PM EDT [facility] Bone Marrow Peripheral blood [...] PATHOLOGY ORDERABLES Edit ed Result - Final [facility] [address] [place] [address] documented in this encounter Visit Diagnoses Diagnosis [...] documented as of this encounter Care Teams Fast Food Delivery Driver Relationship Specialty Start Date End Date Jevon Vazquez MD [address] [place] [address] #1 #1 [place]SEP [place] [address] PCP - General 03/23/22 documented as of this encounter
[2024-09-26 08:57] VITALS: BMI 20.5
--- OUTSIDE RECORDS SUMMARY | 2024-09-26 08:58 | XMS_ITS | Encounter Summary ---
Author Organization [facility] Address [address] [place] [address] Care Team Providers Care Insecticide Expert Name Role Phone Jevon Vazquez MD Primary Care Provider [phone] Encounter Details Date Type Department Care Team ([facility] Contact Info) Description 09/19/2024 Telephone [facility] Hematology/BMT and Cellular Therapy Program [address] [place] [address] Romana Richmond RN [facility] Social History Tobacco Use Types [...] Date Type Department Care Team ([facility] Contact Info) Description 09/30/2024 9:00 AM EDT Clinical Support [facility] Hematology/BMT and Cellular Therapy Program [address] [place] [address] 09/30/2024 9:30 AM EDT Office Visit [facility] Hematology/BMT and Cellular Therapy Program [address] [place] [phone] Zonia Hoffman, TURKEY PICKER 800 [facility] [address] [place] [phone] 09/30/2024 11:00 AM EDT Appointment [facility] [address] [place] [address] 10/01/2024 8:30 AM EDT Appointment [facility] [address] [place] [address] 10/02/2024 8:00 AM EDT Appointment [facility] [address] [place] [address] 10/03/2024 8:00 AM EDT Appointment [facility] [address] [place] [address] 10/04/2024 8:00 AM EDT Appointment [facility] [address] [place] [address] 10/05/2024 8:00 AM EDT Appointment [facility] [address] [place] [address] 10/06/2024 8:00 AM EDT Appointment [facility] [address] [place] [address] 10/28/2024 11:00 AM EDT Clinical Support [facility] Hematology/BMT and Cellular Therapy Program [address] [place] [address] 10/28/2024 11:30 AM EDT Office Visit [facility] Hematology/BMT and Cellular Therapy Program [address] [place] [address] Zonia Hoffman, TURKEY PICKER 800 [facility] [address] [place] [phone] documented as of this encounter Visit Diagnoses Not on filedocumented in this encounter Additional Health Concerns Assessment Noted Time A fall risk assessment has been complete d for the patient 09/19/2024 8:38 AM EDT A Body Mass Index follow-up plan has been documented for the patient 05/28/2024 1:52 PM EST documented as of this encounter Care Teams Insecticide Expert Relationship Specialty Start Date End Date Jevon Vazquez MD [address] [place] [address] #1 #1 [place] [address] PCP - General 03/23/22 documented as of this encounter
--- OUTSIDE RECORDS SUMMARY | 2024-09-26 08:58 | XMS_ITS | Encounter Summary ---
Author Organization [facility] Address [address] [place] [address] Care Team Providers Care Grain I Farmworker Name Role Phone Jevon Vazquez MD Primary Care Provider [phone] Reason for Visit * Reason Comments Med Refill Encounter Details Date Type Department Care Team ([facility] Contact Info) Description 01/30/2024 Refill [facility] Hematology/BMT and Cellular Therapy Program [address] [phone] New Mckinney MD 800 [facility] [address] [place] [phone] Social History Tobacco Use Types Packs/Day Years [...] Upcoming Encounters Date Type Department Care Team ([facility] Contact Info) Description 09/30/2024 9:00 AM EDT Clinical Support [facility] Hematology/BMT and Cellular Therapy Program [address] [place] [address] 09/30/2024 9:30 AM EDT Office Visit [facility] Hematology/BMT and Cellular Therapy Program [address] [phone] Zonia Hoffman, DAIRY CONSULTANT 800 [facility] [address] [place] [phone] 09/30/2024 11:00 AM EDT Appointment [facility] 1 [address] [place] [address] 10/01/2024 8:30 AM EDT Appointment [facility] 1 [address] [place] [address] 10/02/2024 8:00 AM EDT Appointment [facility] 1 [address] [place] [address] 10/03/2024 8:00 AM EDT Appointment [facility] 1 [address] [place] [address] 10/04/2024 8:00 AM EDT Appointment [facility] 1 [address] [place] [address] 10/05/2024 8:00 AM EDT Appointment [facility] 1 [address] [place] [address] 10/06/2024 8:00 AM EDT Appointment [facility] Infusion Clinic 1 [address] [place] [address] 10/28/2024 11:00 AM EDT Clinical Support [facility] Hematology/BMT and Cellular Therapy Program [address] [place] [address] 10/28/2024 11:30 AM EDT Office Visit [facility] Hematology/BMT and Cellular Therapy Program [address] [place] [address] Zonia Hoffman, DAIRY CONSULTANT 800 [facility] [address] [place] [phone] documented as of this encounter Visit Diagnoses Not on filedocumented in this encounter Additional Health Concerns Assessment Noted Time A fall risk assessment has been complete d for the patient 01/11/2024 9:16 AM EDT A Body Mass Index follow-up plan has been documented for the patient 01/21/2024 6:16 AM EDT documented as of this encounter Care Teams Grain I Farmworker Relationship Specialty Start Date End Date Jevon Vazquez MD [address] [place] [address] #1 #1 [place] [address] PCP - General 03/23/22 documented as of this encounter
--- OUTSIDE RECORDS SUMMARY | 2024-09-26 08:58 | XMS_ITS | Encounter Summary ---
Author Organization Healthcare Address [address] [place] [address] Care Team Providers Care Airfield Operations Specialist Name Role Phone Jevon Vazquez MD Primary Care Provider [phone] Encounter Details Date Type Department Care Team ([facility] Contact Info) Description 09/19/2024 Orders Only [facility] Hematology/BMT and Cellular Therapy Program [address] [phone] 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, RN [facility] Social History [...] Encounters Date Type Department Care Team ([facility] Contact Info) Description 09/30/2024 9:00 AM EDT Clinical Support [facility] Hematology/BMT and Cellular Therapy Program [address] [phone] 09/30/2024 9:30 AM EDT Office Visit [facility] Hematology/BMT and Cellular Therapy Program [address] [phone] Zonia Hoffman, CDL SERVICE TECHNICIAN 800 [facility] [address] [place] [phone] 09/30/2024 11:00 AM EDT Appointment [facility] 1 [address] [place] [address] 10/01/2024 8:30 AM EDT Appointment [facility] 1 [address] [place] [address] 10/02/2024 8:00 AM EDT Appointment [facility] 1 [address] [place] [address] 10/03/2024 8:00 AM EDT Appointment [facility] 1 [address] [place] [address] 10/04/2024 8:00 AM EDT Appointment [facility] 1 [address] [place] [address] 10/05/2024 8:00 AM EDT Appointment [facility] 1 [address] [place] [address] 10/06/2024 8:00 AM EDT Appointment [facility] 1 [address] [place] [address] 10/28/2024 11:00 AM EDT Clinical Support [facility] Hematology/BMT and Cellular Therapy Program [address] [address] 10/28/2024 11:30 AM EDT Office Visit [facility] Hematology/BMT and Cellular Therapy Program [address] [address] Zonia Hoffman, CDL SERVICE TECHNICIAN 800 [facility] [address] [place] [phone] documented as of this encounter Visit Diagnoses Not on filedocumented in this encounter Additional Health Concerns Assessment Noted Time A fall risk assessment has been complete d for the patient 09/19/2024 8:38 AM EDT A Body Mass Index follow-up plan has been documented for the patient 05/28/2024 1:52 PM EST documented as of this encounter Care Teams Airfield Operations Specialist Relationship Specialty Start Date End Date Jevon Vazquez MD [address] [place] [address] #1 #1 [place] [address] PCP - General 03/23/22 documented as of this encounter
--- OUTSIDE RECORDS SUMMARY | 2024-09-26 08:59 | XMS_ITS | Encounter Summary ---
Author Organization Healthcare Address [address] [place] [address] Care Team Providers Care General Farm Hand Name Role Phone Jevon Vazquez MD Primary Care Provider [phone] Encounter Details Date Type Department Care Team [...] Hematology/BMT and Cellular Therapy Program [address] [address] 09/30/2024 9:30 AM EDT Office Visit [facility] Hematology/BMT and Cellular Therapy Program [address] [address] Zonia Hoffman, MARKETING INTELLIGENCE ANALYST 800 [facility] [address] [place] [phone] 09/30/2024 11:00 AM EDT Appointment [facility] 1 [address] [place] [address] 10/01/2024 8:30 AM EDT Appointment [facility] 1 [address] [place] [address] 10/02/2024 8:00 AM EDT Appointment [facility] 1 [address] [place] [address] 10/03/2024 8:00 AM EDT Appointment [facility] 1 [address] [place] [address] 10/04/2024 8:00 AM EDT Appointment [facility] 1 [address] [place] [address] 10/05/2024 8:00 AM EDT Appointment [facility] 1 [address] [place] [address] 10/06/2024 8:00 AM EDT Appointment [facility] 1 [address] [place] [address] 10/28/2024 11:00 AM EDT Clinical Support [facility] Hematology/BMT and Cellular Therapy Program [address] [address] 10/28/2024 11:30 AM EDT Office Visit [facility] Hematology/BMT and Cellular Therapy Program [address] [address] Zonia Hoffman, MARKETING INTELLIGENCE ANALYST 800 [facility] [address] [place] [phone] documented as of this encounter Visit Diagnoses Not on filedocumented in this encounter Additional Health Concerns Assessment Noted Time A fall risk assessment has been complete d for the patient 07/30/2024 8:29 AM EDT A Body Mass Index follow-up plan has been documented for the patient 05/28/2024 1:52 PM EST documented as of this encounter Care Teams General Farm Hand Relationship Specialty Start Date End Date Jevon Vazquez MD [address] [place] [address] #1 #1 [place] [address] PCP - General 03/23/22 documented as of this encounter
--- OUTSIDE RECORDS SUMMARY | 2024-09-26 08:59 | XMS_ITS | Encounter Summary ---
Author Organization [facility] Address [address] [place] [address] Care Team Providers Care Social Worker School Name Role Phone Jevon Vazquez MD Primary Care Provider [phone] Encounter Details Date Type Department Care Team ([facility] Contact Info) Description 07/30/2024 Telephone [facility] Hematology/BMT and Cellular Therapy Program [address] [place] [phone] Romana Richmond RN [facility] Social History Tobacco Use [...] Upcoming Encounters Date Type Department Care Team ([facility] Contact Info) Description 09/30/2024 9:00 AM EDT Clinical Support [facility] Hematology/BMT and Cellular Therapy Program [address] [place] [address] 09/30/2024 9:30 AM EDT Office Visit [facility] Hematology/BMT and Cellular Therapy Program [address] [place] [phone] Zonia Hoffman, BED TEACHER 800 [facility] [address] [place] [phone] 09/30/2024 11:00 AM EDT Appointment [facility] 1 [address] [place] [address] 10/01/2024 8:30 AM EDT Appointment [facility] 1 [address] [place] [address] 10/02/2024 8:00 AM EDT Appointment [facility] 1 [address] [place] [address] 10/03/2024 8:00 AM EDT Appointment [facility] 1 [address] [place] [address] 10/04/2024 8:00 AM EDT Appointment [facility] 1 [address] [place] [address] 10/05/2024 8:00 AM EDT Appointment [facility] 1 [address] [place] [address] 10/06/2024 8:00 AM EDT Appointment [facility] 1 [address] [place] [address] 10/28/2024 11:00 AM EDT Clinical Support [facility] Hematology/BMT and Cellular Therapy Program [address] [place] [address] 10/28/2024 11:30 AM EDT Office Visit [facility] Hematology/BMT and Cellular Therapy Program [address] [place] [address] Zonia Hoffman, BED TEACHER 800 [facility] [address] [place] [phone] documented as of this encounter Visit Diagnoses Not on filedocumented in this encounter Additional Health Concerns Assessment Noted Time A fall risk assessment has been complete d for the patient 07/30/2024 8:29 AM EDT A Body Mass Index follow-up plan has been documented for the patient 05/28/2024 1:52 PM EST documented as of this encounter Care Teams Social Worker School Relationship Specialty Start Date End Date Jevon Vazquez MD [address] [place] [address] #1 #1 [place] [address] PCP - General 03/23/22 documented as of this encounter
--- OUTSIDE RECORDS SUMMARY | 2024-09-26 08:59 | XMS_ITS | Encounter Summary ---
Author Organization Healthcare Address [address] [place] [address] Care Team Providers Care Marketing Data Specialist Name Role Phone Jevon Vazquez MD Primary Care Provider [phone] Encounter Details Date Type Department Care Team [...] Hematology/BMT and Cellular Therapy Program [address] [address] 09/30/2024 9:30 AM EDT Office Visit [facility] Hematology/BMT and Cellular Therapy Program [address] [address] Zonia Hoffman, VACUUM SYSTEM TESTER 800 [facility] [address] [place] [phone] 09/30/2024 11:00 AM EDT Appointment [facility] 1 [address] [place] [address] 10/01/2024 8:30 AM EDT Appointment [facility] 1 [address] [place] [address] 10/02/2024 8:00 AM EDT Appointment [facility] 1 [address] [place] [address] 10/03/2024 8:00 AM EDT Appointment [facility] 1 [address] [place] [address] 10/04/2024 8:00 AM EDT Appointment [facility] 1 [address] [place] [address] 10/05/2024 8:00 AM EDT Appointment [facility] 1 [address] [place] [address] 10/06/2024 8:00 AM EDT Appointment [facility] 1 [address] [place] [address] 10/28/2024 11:00 AM EDT Clinical Support [facility] Hematology/BMT and Cellular Therapy Program [address] [address] 10/28/2024 11:30 AM EDT Office Visit [facility] Hematology/BMT and Cellular Therapy Program [address] [address] Zonia Hoffman, VACUUM SYSTEM TESTER 800 [facility] [address] [place] [phone] documented as of this encounter Visit Diagnoses Not on filedocumented in this encounter Additional Health Concerns Assessment Noted Time A fall risk assessment has been complete d for the patient 07/30/2024 8:29 AM EDT A Body Mass Index follow-up plan has been documented for the patient 05/28/2024 1:52 PM EST documented as of this encounter Care Teams Marketing Data Specialist Relationship Specialty Start Date End Date Jevon aVzquez MD [address] [place] [address] #1 #1 [place] [address] PCP - General 03/23/22 documented as of this encounter
--- OUTSIDE RECORDS SUMMARY | 2024-09-26 08:59 | XMS_ITS | Clinical Summary ---
Author Organization [facility] Address [address] [place] [address] Phone Care Team Providers Care Product Assembler Name Role Phone Jevon Vazquez MD Primary Care Provider [phone] Allergies Active Allergy Reactions Criticality Noted Date [...] L4-5 LAMINECTOMY; Surgeon: Ivan Bartholomew MD; Location: [facility] MA[facility] OR; Service: Spine Medical History [...] % 11/14/2022 2:57 PM EDT [facility] Est. Avg Glucose 148 mg/dL 11/14/2022 2:57 PM EDT [facility] Blood VENOUS BLOOD / Unknown Venipuncture / Unknown 11/11/2022 3:46 PM EDT 11/11/2022 3:55 PM EDT Narrative [facility] - 11/14/2022 2:57 PM EDT REFERENCE RANGE: Normal: 4.0-5.6% Pre-diabetes: 5.7-6.4% Provisional diagnosis of diabetes: >6.4% Hgb F>10% and anything which shortens red cell survival, such as hemolytic anemia, or unstable hemoglobin variants such as HbSS, HbSC, or HbCC, will lower the HbA1c value associated with a given level of glycemic control. Lexi Maloney DO CHEMISTRY ORDERABLES Final R esult [employer] [facility] [address] [facility] , [place] [address] * DX BONE DENSITY AXIAL SKELETON (07/25/2022 9:14 AM EDT) Anatomical Region Laterality Modality Dexa Scan 07/25/2022 Narrative 07/25/2022 3:45 PM EDT Indication: The patient is a female age 65 or older who requires a bone density assessment. Study was performed on [employer] 5. Bone Density: Region BMD T-score Z-score [...] Payer (Ef fective 2016-Present) Name:Ashly Hernández Member ID:[id number] Relation to Subscriber:Self Name:Ashly Hernández Subscriber ID:[id number] Payer ID:Not on file Group ID:Not on file Type:Not on file Address: [address] MEDICARE SUPPLEMENT MEDICARE [place] PART A & B MEDICARE [place] PART A AND B Member Subscriber Plan / Payer (Ef fective 2016-Present) Name:Ashly Hernández Member ID:[id number] Relation to Subscriber:Self Name:Ashly Hernández Subscriber ID:[id number] Payer ID:Not on file Group ID:Not on file Type:Not on file Address: [address] MEDICARE SUPPLEMENT [employer] [place] [address] ANTH MEDICARE SUPPLEMENT Advance Directives For more information, please contact: [phone] * Full Code (Latest Code Status on File) Date Activated Date Inactivated Comments 11/14/2022 6:53 PM 11/16/2022 7:37 PM * Full Code Date Activated Date Inactivated Comments 11/12/2022 5:17 AM 11/14/2022 6:47 PM Care Teams Product Assembler Relationship Specialty Start Date End Date Jevon Vazquez MD [address] [place] [address] PCP - General Family Medicine 11/10/22
--- OUTSIDE RECORDS SUMMARY | 2024-09-26 08:59 | XMS_ITS | Encounter Summary ---
Author Organization Healthcare Address [address] [place] [address] Care Team Providers Care Pharmacy Informatics Specialist Name Role Phone Jevon Vazquez MD Primary Care Provider [phone] Encounter Details Date Type Department Care Team [...] Hematology/BMT and Cellular Therapy Program [address] [address] 09/30/2024 9:30 AM EDT Office Visit [facility] Hematology/BMT and Cellular Therapy Program [address] [address] Zonia Hoffman, MICROGRINDER OPERATOR 800 [facility] [address] [place] [phone] 09/30/2024 11:00 AM EDT Appointment [facility] 1 [address] [place] [address] 10/01/2024 8:30 AM EDT Appointment [facility] 1 [address] [place] [address] 10/02/2024 8:00 AM EDT Appointment [facility] 1 [address] [place] [address] 10/03/2024 8:00 AM EDT Appointment [facility] 1 [address] [place] [address] 10/04/2024 8:00 AM EDT Appointment [facility] 1 [address] [place] [address] 10/05/2024 8:00 AM EDT Appointment [facility] 1 [address] [place] [address] 10/06/2024 8:00 AM EDT Appointment [facility] 1 [address] [place] [address] 10/28/2024 11:00 AM EDT Clinical Support [facility] Hematology/BMT and Cellular Therapy Program [address] [address] 10/28/2024 11:30 AM EDT Office Visit PAV Hematology/BMT and Cellular Therapy Program [address] [address] Zonia Hoffman, MICROGRINDER OPERATOR 800 [facility] [address] [place] [phone] documented as of this encounter Visit Diagnoses Not on filedocumented in this encounter Additional Health Concerns Assessment Noted Time A fall risk assessment has been complete d for the patient 07/30/2024 8:29 AM EDT A Body Mass Index follow-up plan has been documented for the patient 05/28/2024 1:52 PM EST documented as of this encounter Care Teams Pharmacy Informatics Specialist Relationship Specialty Start Date End Date Jevon Vazquez MD [address] [place] [address] #1 #1 [place] [address] PCP - General 03/23/22 documented as of this encounter
--- OUTSIDE RECORDS SUMMARY | 2024-09-26 08:59 | XMS_ITS | Encounter Summary ---
Author Organization Healthcare Address [address] [place] [address] Care Team Providers Care Client Service Representative Name Role Phone Jevon Vazquez MD Primary Care Provider [phone] Encounter Details Date Type Department Care Team [...] Hematology/BMT and Cellular Therapy Program [address] [address] 09/30/2024 9:30 AM EDT Office Visit [facility] CC Hematology/BMT and Cellular Therapy Program [address] [address] Zonia Hoffman, TOWBOAT OPERATOR 800 [facility] [address] [place] [address] 09/30/2024 11:00 AM EDT Appointment [facility] 1 [address] [place] [address] 10/01/2024 8:30 AM EDT Appointment [facility] 1 [address] [place] [address] 10/02/2024 8:00 AM EDT Appointment [facility] 1 [address] [place] [address] 10/03/2024 8:00 AM EDT Appointment [facility] 1 [address] [place] [address] 10/04/2024 8:00 AM EDT Appointment [facility] 1 [address] [place] [address] 10/05/2024 8:00 AM EDT Appointment [facility] 1 [address] [place] [address] 10/06/2024 8:00 AM EDT Appointment [facility] 1 [address] [place] [address] 10/28/2024 11:00 AM EDT Clinical Support [facility] Hematology/BMT and Cellular Therapy Program [address] [address] 10/28/2024 11:30 AM EDT Office Visit PAV Hematology/BMT and Cellular Therapy Program [address] [address] Zonia Hoffman, TOWBOAT OPERATOR 800 [facility] [address] [place] [address] documented as of this encounter Visit Diagnoses Not on filedocumented in this encounter Additional Health Concerns Assessment Noted Time A fall risk assessment has been complete d for the patient 07/30/2024 8:29 AM EDT A Body Mass Index follow-up plan has been documented for the patient 05/28/2024 1:52 PM EST documented as of this encounter Care Teams Client Service Representative Relationship Specialty Start Date End Date Jevon Vazquez MD [address] [place] [address] #1 #1 [place] [address] PCP - General 03/23/22 documented as of this encounter
--- OUTSIDE RECORDS SUMMARY | 2024-09-26 08:59 | XMS_ITS | Encounter Summary ---
Author Organization Healthcare Address [address] [place] [address] Care Team Providers Care Solidworks Drafter Name Role Phone Jevon Vazquez MD Primary Care Provider [phone] Encounter Details Date Type Department Care Team [...] CC Hematology/BMT and Cellular Therapy Program [address] [address] 09/30/2024 9:30 AM EDT Office Visit [facility] Hematology/BMT and Cellular Therapy Program [address] [address] Zonia Hoffman, WINDOWS AND DOORS INSTALLER 800 [facility] [address] [place] [address] 09/30/2024 11:00 AM EDT Appointment [facility] 1 [address] [place] [address] 10/01/2024 8:30 AM EDT Appointment [facility] 1 [address] [place] [address] 10/02/2024 8:00 AM EDT Appointment [facility] 1 [address] [place] [address] 10/03/2024 8:00 AM EDT Appointment [facility] 1 [address] [place] [address] 10/04/2024 8:00 AM EDT Appointment [facility] 1 [address] [place] [address] 10/05/2024 8:00 AM EDT Appointment [facility] 1 [address] [place] [address] 10/06/2024 8:00 AM EDT Appointment [facility] 1 [address] [place] [address] 10/28/2024 11:00 AM EDT Clinical Support [facility] CC Hematology/BMT and Cellular Therapy Program [address] [address] 10/28/2024 11:30 AM EDT Office Visit PAV Hematology/BMT and Cellular Therapy Program [address] [address] Zonia Hoffman, WINDOWS AND DOORS INSTALLER 800 [facility] [address] [place] [phone] documented as of this encounter Visit Diagnoses Not on filedocumented in this encounter Additional Health Concerns Assessment Noted Time A fall risk assessment has been complete d for the patient 07/30/2024 8:29 AM EDT A Body Mass Index follow-up plan has been documented for the patient 05/28/2024 1:52 PM EST documented as of this encounter Care Teams Solidworks Drafter Relationship Specialty Start Date End Date Jevon Vazquez MD [address] [place] [address] #1 #1 [place] [address] PCP - General 03/23/22 documented as of this encounter
--- OUTSIDE RECORDS SUMMARY | 2024-09-26 08:59 | XMS_ITS ---
Author Organization [facility] Address [address] [place] [address] Care Team Providers Care National Sales Manager Name Role Phone Jevon Vazquez MD Primary Care Provider [phone] Active Problems Problem Noted Date Diagnosed Date [...]
--- OUTSIDE RECORDS SUMMARY | 2024-09-26 08:59 | XMS_ITS | Clinical Summary ---
Author Organization [facility] Address [address] [place] [address] Care Team Providers Care Flat Clothier Name Role Phone David Vazquez Primary Care Provider [phone] Allergies No known active allergies Medications atorvastatin [...] series) 2025 Medical Devices Implanted Type Area Sanitation Worker Device Identifier Shelf Expiration Date Model / Serial / Lot Mis Ply Scr 6.5x50mm - [id number] Implanted:Qty : 1 on 01/30/2023 by Ivan Bartholomew MD at [facility] [place] Screw N/A: Spine Lumbar [employer] [id number] / / Mis Ply Scr 6.5x45mm - [id number] Implanted:Qty : 3 on 01/30/2023 by Ivan Bartholomew MD at [facility] [place] Screw N/A: Spine Lumbar [employer] [id number] / / Reline Mas Reduction Screw 7.5x45 - [id number] Implanted:Qty : 2 on 01/30/2023 by Ivan Bartholomew MD at [facility] [place] Screw N/A: Spine Lumbar [employer] [id number] / / Grft Dbm Vesuvius Putty 5cc - [id number] Implanted:Qty : 1 on 01/30/2023 by Ivan Bartholomew MD at [facility] [place] [place] [employer] [id number] 04/20/2025 [id number] P / [id number] / Putty I-Factor 5.0cc - [id number] Implanted:Qty : 1 on 01/30/2023 by Ivan Bartholomew MD at [facility] [place] [place] N/A: Spine Lumbar [employer] 03/15/2025 [id number] / / [id number] Modulus Xlw [id number] 10 Degree - [id number] Implanted:Qty : 1 on 01/30/2023 by Ivan Bartholomew MD at [facility] [place] N/A: Spine Lumbar [employer] [id number] / / [id number] Modulus Xlw [id number] - [id number] Implanted:Qty : 1 on 01/30/2023 by Ivan Bartholomew MD at [facility] [place] N/A: Spine Lumbar [employer] 09/28/2027 [id number] / / [id number] Reln Lock Scr 5.5mm Opn Tulip - [id number] Implanted:Qty : 6 on 01/30/2023 by Ivan Bartholomew MD at [facility] N/A: Spine Lumbar [employer] [id number] / / Reln Mas Ti Petar 5.5x70mm - [id number] Implanted:Qty : 2 on 01/30/2023 by Ivan Bartholomew MD at [facility] N/A: Spine Lumbar [employer] [id number] / / Procedures Procedure Name Priority Date/Time [...] Hgb A1C 6.0(H) 4.0 - 5.6 % [facility] Comment: Reference Ranges for [...] Glycohemoglobin Standardization program (NGSP) and traceable to [facility] Estimated Average Glucose 126(H) 68 - 114 mg/dL [facility] Whole Blood (Blood) 01/24/2023 2:32 PM EDT 01/24/2023 6:00 PM EDT us Ivan Bartholomew MD CHEMISTRY ORDERABLES Fin al Result [facility] [address] * (ABNORMAL) BASIC METABOLIC PANEL (BMP=EP1) (01/24/2023 2:32 PM EDT) Sodium 141 135 - 146 mmol/L [facility] Potassium 4.8 3.5 - 5.1 mmol/L [facility] Chloride 107 98 - 110 mmol/L [facility] CO2 24 22 - 29 mmol/L [facility] Anion Gap 10 5 - 13 mmol/L [facility] Comment:Anion gap calculatio n does not include potassium (K+) value. BUN 17 7 - 25 mg/dL [facility] Creatinine 1.20 0.50 - 1.20 mg/dL [facility] Glucose 125(H) 71 - 99 mg/dL [facility] Comment:Reference range (71- 99 mg/dL) refers only to fasting samples, and does not apply to non-fasting samples. eGFR CKD-EPI 2020 48 See Note [facility] Comment: eGFR calculated with 2020 CKD-EPI equation using creatinine, patient's age and gender. Other factors, especially muscle mass, may affect accuracy and need to be considered. Patient values should be interpreted as a trend. The reference interval is >60 mL/min/1.73m2. Calcium 10.3 8.5 - 10.5 mg/dL [facility] BUN/Creatinine Ratio 14 [facility] Serum 01/24/2023 2:32 PM EDT 01/24/2023 5:54 PM EDT us Lexi SUAREZ CHEMISTRY ORDERABLES Final Resu lt [facility] [address] from Last 3 Months or Most Recently Relevant to Health Maintenance Insurance MEDICARE PART A [facility] [address] [address] [place] [address] ANTH Advance Directives For more information, please contact: [phone] * Full Code (Latest Code Status on File) Date Activated Date Inactivated Comments 01/30/2023 9:13 AM No automated chest compression devices for [facility] Patients Care Teams Flat Clothier Relationship Specialty Start Date End Date David Vazquez [address] [place] [phone] PCP - General 01/24/23
--- OUTSIDE RECORDS SUMMARY | 2024-09-26 08:59 | XMS_ITS | Encounter Summary ---
Author Organization [facility] Address [address] [place] [address] Care Team Providers Care Pigeon Fancier Name Role Phone Jevon Vazquez MD Primary Care Provider [phone] Reason for Visit * Reason Comments Med Refill Encounter Details Date Type Department Care Team ([facility] [address] Contact Info) Description 09/12/2024 Refill [facility] Hematology/BMT and Cellular Therapy Program [address] [phone] New Mckinney MD 800 [facility] [address] [place] [place] [phone] Social History Tobacco Use Types Packs/Day Years [...] CC Hematology/BMT and Cellular Therapy Program [address] [phone] 09/30/2024 9:30 AM EDT Office Visit [facility] Hematology/BMT and Cellular Therapy Program [address] [address] Zonia Hoffman, INFORMATICA MDM DEVELOPER 800 [facility] [address] [place] [phone] 09/30/2024 11:00 AM EDT Appointment [facility] 1 [address] [place] [address] 10/01/2024 8:30 AM EDT Appointment [facility] 1 [address] [place] [address] 10/02/2024 8:00 AM EDT Appointment [facility] 1 [address] [place] [address] 10/03/2024 8:00 AM EDT Appointment [facility] 1 [address] [place] [address] 10/04/2024 8:00 AM EDT Appointment [facility] 1 [address] [place] [address] 10/05/2024 8:00 AM EDT Appointment [facility] 1 [address] [place] [address] 10/06/2024 8:00 AM EDT Appointment [facility] 1 [address] [place] [address] 10/28/2024 11:00 AM EDT Clinical Support [facility] Hematology/BMT and Cellular Therapy Program [address] [place] [address] 10/28/2024 11:30 AM EDT Office Visit [facility] Hematology/BMT and Cellular Therapy Program [address] [place] [address] Zonia Hoffman, INFORMATICA MDM DEVELOPER 800 [facility] [address] [place] [phone] documented as of this encounter Visit Diagnoses Not on filedocumented in this encounter Additional Health Concerns Assessment Noted Time A fall risk assessment has been complete d for the patient 07/30/2024 8:29 AM EDT A Body Mass Index follow-up plan has been documented for the patient 05/28/2024 1:52 PM EST documented as of this encounter Care Teams Pigeon Fancier Relationship Specialty Start Date End Date Jevon Vazquez MD [address] [place] [address] #1 #1 [place] [address] PCP - General 03/23/22 documented as of this encounter
--- OUTSIDE RECORDS SUMMARY | 2024-09-26 08:59 | XMS_ITS | Encounter Summary ---
Author Organization [facility] Address [address] [place] [address] Care Team Providers Care Job Checker Name Role Phone Jevon Vazquez MD Primary Care Provider [phone] Encounter Details Date Type Department Care Team ([facility] Contact Info) Description 09/15/2024 Telephone [facility] Hematology/BMT and Cellular Therapy Program [address] [phone] Zonia Hoffman, CASER SHOE PARTS 800 [facility] [address] [place] [phone] Social History Tobacco Use Types Packs/Day Years [...] Upcoming Encounters Date Type Department Care Team ([facility] Contact Info) Description 09/30/2024 9:00 AM EDT Clinical Support [facility] Hematology/BMT and Cellular Therapy Program [address] [place] [phone] 09/30/2024 9:30 AM EDT Office Visit [facility] Hematology/BMT and Cellular Therapy Program [address] [place] [phone] Zonia Hoffman, CASER SHOE PARTS 800 [facility] [address] [place] [phone] 09/30/2024 11:00 AM EDT Appointment [facility] 1 [address] [place] [address] 10/01/2024 8:30 AM EDT Appointment [facility] 1 [address] [place] [address] 10/02/2024 8:00 AM EDT Appointment [facility] 1 [address] [place] [address] 10/03/2024 8:00 AM EDT Appointment [facility] 1 [address] [place] [address] 10/04/2024 8:00 AM EDT Appointment [facility] 1 [address] [place] [address] 10/05/2024 8:00 AM EDT Appointment [facility] 1 [address] [place] [address] 10/06/2024 8:00 AM EDT Appointment [facility] Infusion Clinic 1 4 [place] [address] 10/28/2024 11:00 AM EDT Clinical Support [facility] Hematology/BMT and Cellular Therapy Program [address] [place] [phone] 10/28/2024 11:30 AM EDT Office Visit [facility] Hematology/BMT and Cellular Therapy Program [address] [phone] Zonia Hoffman, CASER SHOE PARTS 800 [facility] [address] [place] [phone] documented as of this encounter Visit Diagnoses Not on filedocumented in this encounter Additional Health Concerns Assessment Noted Time A fall risk assessment has been complete d for the patient 07/30/2024 8:29 AM EDT A Body Mass Index follow-up plan has been documented for the patient 05/28/2024 1:52 PM EST documented as of this encounter Care Teams Job Checker Relationship Specialty Start Date End Date Jevon Vazquez MD [address] [place] [address] #1 #1 [place]SEP [address] PCP - General 03/23/22 documented as of this encounter
--- OUTSIDE RECORDS SUMMARY | 2024-09-26 08:59 | XMS_ITS | Encounter Summary ---
Author Organization Healthcare Address [address] [place] [address] Care Team Providers Care Planer Hand Name Role Phone Jevon Vazquez MD [...] Hematology/BMT and Cellular Therapy Program [address] [phone] 09/30/2024 9:30 AM EDT Office Visit [facility] Hematology/BMT and Cellular Therapy Program [address] [phone] Zonia Hoffman, INSPECTOR OPTICAL INSTRUMENT 800 [facility] [address] [place] [phone] 09/30/2024 11:00 AM EDT Appointment [facility] 1 [address] [place] [address] 10/01/2024 8:30 AM EDT Appointment [facility] 1 [address] [place] [address] 10/02/2024 8:00 AM EDT Appointment [facility] 1 [address] [place] [address] 10/03/2024 8:00 AM EDT Appointment [facility] 1 [address] [place] [address] 10/04/2024 8:00 AM EDT Appointment [facility] 1 [address] [place] [address] 10/05/2024 8:00 AM EDT Appointment [facility] 1 [address] [place] [address] 10/06/2024 8:00 AM EDT Appointment [facility] 1 [address] [place] [address] 10/28/2024 11:00 AM EDT Clinical Support [facility] Hematology/BMT and Cellular Therapy Program [address] [address] 10/28/2024 11:30 AM EDT Office Visit [facility] Hematology/BMT and Cellular Therapy Program [address] [phone] Zonia Hoffman, INSPECTOR OPTICAL INSTRUMENT 800 [facility] [address] [place] [phone] documented as of this encounter Visit Diagnoses Not on filedocumented in this encounter Additional Health Concerns Assessment Noted Time A fall risk assessment has been complete d for the patient 07/30/2024 8:29 AM EDT A Body Mass Index follow-up plan has been documented for the patient 05/28/2024 1:52 PM EST documented as of this encounter Care Teams Planer Hand Relationship Specialty Start Date End Date Jevon Vazquez MD [address] [place] [address] #1 #1 [place] [address] PCP - General 03/23/22 documented as of this encounter
--- OUTSIDE RECORDS SUMMARY | 2024-09-26 08:59 | XMS_ITS | Encounter Summary ---
Author Organization Healthcare Address [address] [place] [address] Care Team Providers Care Shingle Catcher Name Role Phone Jevon Vazquez MD Primary Care Provider [phone] Encounter Details Date Type Department Care Team ([facility] st Contact Info) Description 07/15/2024 Telephone [facility] CC Hematology/BMT and Cellular Therapy Program [address] [phone] Zonia Hoffman, COMPUTER SYSTEMS ENGINEER 800 [facility] [address] [place] [phone] Social History Tobacco Use Types Packs/Day Years [...] Reason for Call: Per PT call to [facility], fabiana Hoffman appt clarity, asking to have Jorge from clinical care team. Best contact number and optimal time of day to reach caller: [phone] Note: Please do not reply to this [...] Upcoming Encounters Date Type Department Care Team ([facility] st Contact Info) Description 09/30/2024 9:00 AM EDT Clinical Support [facility] Hematology/BMT and Cellular Therapy Program [address] [place] [phone] 09/30/2024 9:30 AM EDT Office Visit [facility] Hematology/BMT and Cellular Therapy Program [address] [phone] Zonia Hoffman, COMPUTER SYSTEMS ENGINEER 800 [facility] [address] [place] [phone] 09/30/2024 11:00 AM EDT Appointment [facility] 1 [address] [place] [address] 10/01/2024 8:30 AM EDT Appointment [facility] 1 [address] [place] [address] 10/02/2024 8:00 AM EDT Appointment [facility] 1 [address] [place] [address] 10/03/2024 8:00 AM EDT Appointment [facility] 1 [address] [place] [address] 10/04/2024 8:00 AM EDT Appointment [facility] 1 4 [place] [address] 10/05/2024 8:00 AM EDT Appointment [facility] 1 [address] [place] [address] 10/06/2024 8:00 AM EDT Appointment [facility] 1 [address] [place] [address] 10/28/2024 11:00 AM EDT Clinical Support [facility] Hematology/BMT and Cellular Therapy Program [address] [place] [address] 10/28/2024 11:30 AM EDT Office Visit [facility] Hematology/BMT and Cellular Therapy Program [address] [place] [address] Zonia Hoffman, COMPUTER SYSTEMS ENGINEER 800 [facility] [address] [place] [phone] documented as of this encounter Visit Diagnoses Not on filedocumented in this encounter Additional Health Concerns Assessment Noted Time A fall risk assessment has been complete d for the patient 06/18/2024 10:22 AM EST A Body Mass Index follow-up plan has been documented for the patient 05/28/2024 1:52 PM EST documented as of this encounter Care Teams Shingle Catcher Relationship Specialty Start Date End Date Jevon Vazquez MD [address] [place] [address] #1 [address] [place] [address] PCP - General 03/23/22 documented as of this encounter
--- OUTSIDE RECORDS SUMMARY | 2024-09-26 08:59 | XMS_ITS | Encounter Summary ---
Author Organization Healthcare Address [address] [place] [address] Care Team Providers Care Marketing Associate Name Role Phone Jevon Vazquez MD Primary Care Provider [phone] Encounter Details Date Type Department Care Team [...] Hematology/BMT and Cellular Therapy Program [address] [phone] 09/30/2024 9:30 AM EDT Office Visit [facility] Hematology/BMT and Cellular Therapy Program [address] [phone] Zonia Hoffman, GEM CUTTER 800 [facility] [address] [place] [phone] 09/30/2024 11:00 AM EDT Appointment [facility] 1 [address] [place] [address] 10/01/2024 8:30 AM EDT Appointment [facility] 1 [address] [place] [address] 10/02/2024 8:00 AM EDT Appointment [facility] 1 [address] [place] [address] 10/03/2024 8:00 AM EDT Appointment [facility] 1 [address] [place] [address] 10/04/2024 8:00 AM EDT Appointment [facility] 1 [address] [place] [address] 10/05/2024 8:00 AM EDT Appointment [facility] 1 [address] [place] [address] 10/06/2024 8:00 AM EDT Appointment [facility] 1 [address] [place] [address] 10/28/2024 11:00 AM EDT Clinical Support [facility] Hematology/BMT and Cellular Therapy Program [address] [address] 10/28/2024 11:30 AM EDT Office Visit [facility] Hematology/BMT and Cellular Therapy Program [address] [phone] Zonia Hoffman, GEM CUTTER 800 [facility] [address] [place] [phone] documented as of this encounter Visit Diagnoses Not on filedocumented in this encounter Additional Health Concerns Assessment Noted Time A fall risk assessment has been complete d for the patient 07/16/2024 8:54 AM EDT A Body Mass Index follow-up plan has been documented for the patient 05/28/2024 1:52 PM EST documented as of this encounter Care Teams Marketing Associate Relationship Specialty Start Date End Date Jevon Vazquez MD [address] [place] [address] #1 #[address] [place] [address] PCP - General 03/23/22 documented as of this encounter
--- OUTSIDE RECORDS SUMMARY | 2024-09-26 08:59 | XMS_ITS | Encounter Summary ---
Author Organization Healthcare Address [address] [place] [address] Care Team Providers Care Environmental Services Worker Name Role Phone Jevon Vazquez MD Primary Care Provider [phone] Encounter Details Date Type Department Care Team (Latest Contact Info) Description 09/25/2024 Travel Social History Tobacco Use Types Packs/Day [...] Hematology/BMT and Cellular Therapy Program [address] [address] 09/30/2024 9:30 AM EDT Office Visit [facility] Hematology/BMT and Cellular Therapy Program [address] [phone] Zonia Hoffman, EXPLOSIVE ORDNANCE DISPOSAL SPECIALIST 800 [facility] [address] [place] [phone] 09/30/2024 11:00 AM EDT Appointment [facility] 1 [address] [place] [address] 10/01/2024 8:30 AM EDT Appointment [facility] 1 [address] [place] [address] 10/02/2024 8:00 AM EDT Appointment [facility] 1 [address] [place] [address] 10/03/2024 8:00 AM EDT Appointment [facility] 1 [address] [place] [address] 10/04/2024 8:00 AM EDT Appointment [facility] 1 [address] [place] [address] 10/05/2024 8:00 AM EDT Appointment [facility] 1 [address] [place] [address] 10/06/2024 8:00 AM EDT Appointment [facility] 1 [address] [place] [address] 10/28/2024 11:00 AM EDT Clinical Support [facility] Hematology/BMT and Cellular Therapy Program [address] [address] 10/28/2024 11:30 AM EDT Office Visit [facility] Hematology/BMT and Cellular Therapy Program [address] [phone] Zonia Hoffman, EXPLOSIVE ORDNANCE DISPOSAL SPECIALIST 800 [facility] [address] [place] [phone] documented as of this encounter Visit Diagnoses Not on filedocumented in this encounter Additional Health Concerns Assessment Noted Time A fall risk assessment has been complete d for the patient 09/19/2024 8:38 AM EDT A Body Mass Index follow-up plan has been documented for the patient 05/28/2024 1:52 PM EST documented as of this encounter Care Teams Environmental Services Worker Relationship Specialty Start Date End Date Jevon Vazquez MD [address] [place] [address] #1 #[address] [place] [address] PCP - General 03/23/22 documented as of this encounter
--- OUTSIDE RECORDS SUMMARY | 2024-09-26 08:59 | XMS_ITS | Encounter Summary ---
Author Organization Healthcare Address [address] [place] [address] Care Team Providers Care Setter Cold Rolling Machine Name Role Phone Jevon Vazquez MD Primary Care Provider [phone] Encounter Details Date Type Department Care Team [...] Hematology/BMT and Cellular Therapy Program [address] [address] 09/30/2024 9:30 AM EDT Office Visit [facility] Hematology/BMT and Cellular Therapy Program [address] [phone] Zonia Hoffman, MAILHOUSE OPERATOR 800 [facility] [address] [place] [address] 09/30/2024 11:00 AM EDT Appointment [facility] 1 [address] [place] [address] 10/01/2024 8:30 AM EDT Appointment [facility] 1 [address] [place] [address] 10/02/2024 8:00 AM EDT Appointment [facility] 1 [address] [place] [address] 10/03/2024 8:00 AM EDT Appointment [facility] 1 [address] [place] [address] 10/04/2024 8:00 AM EDT Appointment [facility] 1 [address] [place] [address] 10/05/2024 8:00 AM EDT Appointment [facility] 1 [address] [place] [address] 10/06/2024 8:00 AM EDT Appointment [facility] 1 [address] [place] [address] 10/28/2024 11:00 AM EDT Clinical Support [facility] Hematology/BMT and Cellular Therapy Program [address] [address] 10/28/2024 11:30 AM EDT Office Visit [facility]AV Hematology/BMT and Cellular Therapy Program [address] [address] Zonia Hoffman, MAILHOUSE OPERATOR 800 [facility] [address] [place] [phone] documented as of this encounter Visit Diagnoses Not on filedocumented in this encounter Additional Health Concerns Assessment Noted Time A fall risk assessment has been complete d for the patient 07/30/2024 8:29 AM EDT A Body Mass Index follow-up plan has been documented for the patient 05/28/2024 1:52 PM EST documented as of this encounter Care Teams Setter Cold Rolling Machine Relationship Specialty Start Date End Date Jevon Vazquez MD [address] [place] [address] #1 #[address] [place] [address] PCP - General 03/23/22 documented as of this encounter
--- OUTSIDE RECORDS SUMMARY | 2024-09-26 08:59 | XMS_ITS | Encounter Summary ---
Author Organization Healthcare Address [address] [place] [address] Care Team Providers Care Exceptional Children Teacher Name Role Phone Jevon Vazquez MD Primary Care Provider [phone] Encounter Details Date Type Department Care Team [...] Hematology/BMT and Cellular Therapy Program [address] [address] 09/30/2024 9:30 AM EDT Office Visit [facility] Hematology/BMT and Cellular Therapy Program [address] [address] Zonia Hoffman, SENIOR ADMINISTRATIVE SUPPORT 800 [facility] [address] [place] [phone] 09/30/2024 11:00 AM EDT Appointment [facility] 1 [address] [place] [address] 10/01/2024 8:30 AM EDT Appointment [facility] 1 [address] [place] [address] 10/02/2024 8:00 AM EDT Appointment [facility] 1 [address] [place] [address] 10/03/2024 8:00 AM EDT Appointment [facility] 1 [address] [place] [address] 10/04/2024 8:00 AM EDT Appointment [facility] 1 [address] [place] [address] 10/05/2024 8:00 AM EDT Appointment [facility] 1 [address] [place] [address] 10/06/2024 8:00 AM EDT Appointment [facility] 1 [address] [place] [address] 10/28/2024 11:00 AM EDT Clinical Support [facility] Hematology/BMT and Cellular Therapy Program [address] [phone] 10/28/2024 11:30 AM EDT Office Visit PAV Hematology/BMT and Cellular Therapy Program [address] [address] Zonia Hoffman, SENIOR ADMINISTRATIVE SUPPORT 800 [facility] [address] [place] [phone] documented as of this encounter Visit Diagnoses Not on filedocumented in this encounter Additional Health Concerns Assessment Noted Time A fall risk assessment has been complete d for the patient 07/30/2024 8:29 AM EDT A Body Mass Index follow-up plan has been documented for the patient 05/28/2024 1:52 PM EST documented as of this encounter Care Teams Exceptional Children Teacher Relationship Specialty Start Date End Date Jevon Vazquez MD [address] [place] [address] #1 #[address] [place] [address] PCP - General 03/23/22 documented as of this encounter
--- OUTSIDE RECORDS SUMMARY | 2024-09-26 08:59 | XMS_ITS | Encounter Summary ---
Author Organization [facility] Address [address] [place] [address] Care Team Providers Care Meteorological Aide Name Role Phone Jevon Vazquez MD Primary Care Provider Reason for Visit * Reason Onset Date Comments Med Refill 07/30/2024 Encounter Details Date Type Department Care Team ([facility] Contact Info) Description 07/30/2024 Refill [facility] CC Hematology/BMT and Cellular Therapy Program [address] [place] [phone] Daxa Elliott, RN [facility] HEMAT[facility]Y [facility]INIC Acute myeloid leukemia not [...] Hematology/BMT and Cellular Therapy Program [address] [place] [address] 09/30/2024 9:30 AM EDT Office Visit [facility] Hematology/BMT and Cellular Therapy Program [address] [place] [address] Zonia Hoffman, STORE RECEIVING CLERK 800 [facility] [address] [place] [phone] 09/30/2024 11:00 AM EDT Appointment [facility] [address] [place] [address] 10/01/2024 8:30 AM EDT Appointment [facility] 1 [address] [place] [address] 10/02/2024 8:00 AM EDT Appointment [facility] 1 [address] [place] [address] 10/03/2024 8:00 AM EDT Appointment [facility] 1 [address] [place] [address] 10/04/2024 8:00 AM EDT Appointment [facility] 1 [address] [place] [address] 10/05/2024 8:00 AM EDT Appointment [facility] 1 [address] [place] [address] 10/06/2024 8:00 AM EDT Appointment [facility] Infusion Clinic 1 [address] [place] [address] 10/28/2024 11:00 AM EDT Clinical Support [facility] Hematology/BMT and Cellular Therapy Program [address] [place] [address] 10/28/2024 11:30 AM EDT Office Visit [facility] Hematology/BMT and Cellular Therapy Program [address] [place] [address] Zonia Hoffman, STORE RECEIVING CLERK 800 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
--- OUTSIDE RECORDS SUMMARY | 2024-09-26 08:59 | XMS_ITS | Encounter Summary ---
Author Organization Healthcare Address [address] [place] [address] Care Team Providers Care Cable Ferry Operator Name Role Phone Jevon Vazquez MD Primary Care Provider [phone] Encounter Details Date Type Department Care Team [...] CC Hematology/BMT and Cellular Therapy Program [address] [phone] 09/30/2024 9:30 AM EDT Office Visit [facility] Hematology/BMT and Cellular Therapy Program [address] [phone] Zonia Hoffman, [employer] 800 [facility] [address] [place] [phone] 09/30/2024 11:00 AM EDT Appointment [facility] 1 [address] [place] [address] 10/01/2024 8:30 AM EDT Appointment [facility] 1 [address] [place] [address] 10/02/2024 8:00 AM EDT Appointment [facility] 1 [address] [place] [address] 10/03/2024 8:00 AM EDT Appointment [facility] 1 [address] [place] [address] 10/04/2024 8:00 AM EDT Appointment [facility] 1 [address] [place] [address] 10/05/2024 8:00 AM EDT Appointment [facility] 1 [address] [place] [address] 10/06/2024 8:00 AM EDT Appointment [facility] 1 [address] [place] [address] 10/28/2024 11:00 AM EDT Clinical Support [facility] CC Hematology/BMT and Cellular Therapy Program [address] [phone] 10/28/2024 11:30 AM EDT Office Visit [facility] Hematology/BMT and Cellular Therapy Program [address] [phone] Zonia Hoffman, [employer] 800 [facility] [address] [place] [phone] documented as of this encounter Visit Diagnoses Not on filedocumented in this encounter Additional Health Concerns Assessment Noted Time A fall risk assessment has been complete d for the patient 07/16/2024 8:54 AM EDT A Body Mass Index follow-up plan has been documented for the patient 05/28/2024 1:52 PM EST documented as of this encounter Care Teams Cable Ferry Operator Relationship Specialty Start Date End Date Jevon Vazquez MD [address] [place] [address] #1 #1 [place] [address] PCP - General 03/23/22 documented as of this encounter
--- OUTSIDE RECORDS SUMMARY | 2024-09-26 08:59 | XMS_ITS | Clinical Summary ---
Author Organization [facility] Address [address] 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) 09/19/2024 9:30 AM EDT Clinical Support [facility] 800 [facility], [address]nd [place] [address] 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) 09/19/2024 7:30 AM EDT Clinical Support [facility] CC Hematology/BMT and Cellular Therapy Program 750 [facility], [address] [place] [phone] 09/19/2024 Telephone [facility] CC Hematology/BMT and Cellular Therapy Program 750 [facility], [address] [place] [address] Romana Richmond RN 09/19/2024 Orders Only [facility] Hematology/BMT and Cellular Therapy Program 750 [facility], [address] [place] [phone] 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, RN 09/19/2024 Travel 09/15/2024 Telephone [facility] Hematology/BMT and Cellular Therapy Program [address] [phone] Zonia Hoffman, IT INSTRUCTOR 09/15/2024 Travel 09/14/2024 Travel 09/13/2024 Travel 09/12/2024 Travel 09/12/2024 Refill [facility] Hematology/BMT and Cellular Therapy Program [address] [phone] New Mckinney MD 09/11/2024 Travel 09/10/2024 Travel 09/01/2024 Telephone [facility] Hematology/BMT and Cellular Therapy Program [address] [phone] Zonia Hoffman, IT INSTRUCTOR 08/31/2024 Travel 08/30/2024 Travel 08/18/2024 Telephone [facility] Hematology/BMT and Cellular Therapy Program [address] [phone] Romana Gorman, IT INSTRUCTOR 08/17/2024 Travel 08/16/2024 Travel 08/15/2024 Travel 08/13/2024 Travel 07/30/2024 8:30 AM EDT Office Visit [facility] Hematology/BMT and Cellular Therapy Program [address] [phone] Zonia Hoffman, IT INSTRUCTOR Pancytopenia (Primary Dx) 07/30/2024 8:00 AM EDT Clinical Support [facility] Hematology/BMT and Cellular Therapy Program [address] [phone] Pancytopenia 07/30/2024 Telephone [facility] Hematology/BMT and Cellular Therapy Program [address] [place] [phone] Romana Richmond RN 07/30/2024 Refill [facility] Hematology/BMT and Cellular Therapy Program 750 [facility] [address] [place] [address] Daxa Elliott eeg technologist 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); Immunosuppressed status (CMS/HCC) 07/30/2024 Travel 07/29/2024 Travel 07/28/2024 Travel 07/27/2024 Travel 07/26/2024 Travel 07/24/2024 Travel 07/23/2024 Travel 07/19/2024 Refill [facility] Hematology/BMT and Cellular Therapy Program [address] [place] [phone] Zonia Hoffman, IT INSTRUCTOR 07/16/2024 9:00 AM EDT Office Visit [facility] Hematology/BMT and Cellular Therapy Program [address] [place] [phone] Zonia Hoffman, IT INSTRUCTOR Pancytopenia (Primary Dx); 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) 07/16/2024 8:30 AM EDT Clinical Support [facility] Hematology/BMT and Cellular Therapy Program [address] [place] [phone] 07/16/2024 Travel 07/15/2024 Travel 07/15/2024 Telephone [facility] Hematology/BMT and Cellular Therapy Program [address] [place] [phone] Zonia Hoffman, IT INSTRUCTOR 07/14/2024 Travel 07/13/2024 Travel 07/12/2024 Travel 07/11/2024 Travel 07/10/2024 Travel 07/09/2024 Travel 07/01/2024 Travel 06/30/2024 Travel 06/29/2024 Travel 06/28/2024 Travel 06/27/2024 Travel 06/27/2024 Refill [facility] Hematology/BMT and Cellular Therapy Program [address] [place] [phone] New Mckinney MD Immunosuppressed status (CMS/HCC) (Primary Dx) from Last 3 Months Immunizations Immunization Administration [...] Upcoming Encounters Date Type Department Care Team ([facility] st Contact Info) Description 09/30/2024 9:00 AM EDT Clinical Support [facility] Hematology/BMT and Cellular Therapy Program [address] [phone] 09/30/2024 9:30 AM EDT Office Visit [facility] Hematology/BMT and Cellular Therapy Program [address] [phone] Zonia Hoffman, IT INSTRUCTOR 800 [facility] [address] [place] [phone] 09/30/2024 11:00 AM EDT Appointment [facility] 1 [address] [place] [address] 10/01/2024 8:30 AM EDT Appointment [facility] 1 [address] [place] [address] 10/02/2024 8:00 AM EDT Appointment [facility] 1 [address] [place] [address] 10/03/2024 8:00 AM EDT Appointment [facility] 1 [address] [place] [address] 10/04/2024 8:00 AM EDT Appointment [facility] 1 [address] [place] [address] 10/05/2024 8:00 AM EDT Appointment [facility] 1 [address] [place] [address] 10/06/2024 8:00 AM EDT Appointment [facility] 1 [address] [place] [address] 10/28/2024 11:00 AM EDT Clinical Support [facility] CC Hematology/BMT and Cellular Therapy Program [address] [phone] 10/28/2024 11:30 AM EDT Office Visit [facility] CC Hematology/BMT and Cellular Therapy Program [address] [phone] Zonia Hoffman, IT INSTRUCTOR 800 [facility] [address] [place] [phone] Health Maintenance Due Date Last Done Comments [facility] Annual Wellness (AWV) 1950 [facility]-Infant/Child/Adol SDOH Screenings 1950 [facility]- SDOH Screenings 1968 [facility]-Adult SDOH Screenings 1968 CT Colonography 11/04/1995 Colonoscopy 11/04/1995 FIT-DNA 11/04/1995 FIT 11/04/1995 FOBT 11/04/1995 Sigmoidoscopy 11/04/1995 [facility]-Colorectal Cancer Screening 11/04/1995 [facility]-Breast Cancer Screening 2000 [facility]-RSV Vaccine: 60+ Years or (1 - Risk 60-74 years 1-dose series) 2010 [facility]-Zoster Vaccines (1 of 2) 05/16/2023 03/21/2023 MIM-[id number]-18 Vaccine (4 - season) 2023 02/18/2021, 07/10/2020, 06/12/2020 [facility]-Bone Density [...] this topic Medical Devices Implanted Type Area Subassembler Device Identifier Shelf Expiration Date Model / Serial / Lot Port Clearvue Power 8fr - [id number] Implanted:Qty: 1 on 01/21/2024 by Ness Sargent MD at [facility] Peripherial Vascular-[id number] / / Procedures Procedure Name Priority Date/Time [...] to surronding structures. Alternatives discussed: Delayed treatment [place] protocol: Procedure explained and questions answered to [...] METHOD 09/19/2024 10:19 AM EDT [facility] Blood Blood sample taken from central line / Unknown (Port) Long-term Catheter / Unknown 09/19/2024 10:04 AM EDT 09/19/2024 10:18 AM EDT us New Mckinney MD LAB BLOOD ORDERABLES Final Re sult Performing Organization Address City/[facility] [address]/ZIP Co de Phone Number [facility]ALTH[facility]ARE [facility] [address] [place] [address] * Transfuse platelets, Irradiated (09/19/2024 10:02 AM EDT) us Lexi Ferraro APRN BLOOD TRANSFUSION ORDERABL ES Final Result * Prepare Leukocyte Reduced Platelets (09/19/2024 9:08 AM EDT) Product Code [id number] CH BLOO D BANK Dispense Status Transfused BLOOD BANK Blood Expiration Date [id number] BLOOD BANK Unit Number [id number] CH B LOOD BANK Product Blood Type 6200 BLOOD BANK Blood Type A+ CH BLOOD BANK us Provider Not In System BLOOD BANK PRODUCT ORD ERABLES Final Result Performing Organization Address [facility] [address]/[facility] Co de Phone Number BLOOD BANK [address] [place] [address] * Chromosome Karyotype, Oncology (09/19/2024 7:29 AM [...] 7:29 AM EDT 09/19/2024 12:35 PM EDT New Mckinney MD LAB CYTOGENETICS ORDERABLES F inal Result [facility] [address] [place] [address] * Leukemia/Lymphoma - Immunophenotyping by Flow Cytometry [...] the Immuno-Molecular Pathology Laboratory at the [facility]. It has not been cleared or approved [...] Final Result [facility] [address] [place] [address] * (ABNORMAL) CBC and differential (09/19/2024 7:29 AM EDT) Only the most recent of3 resultswithin the time period is included. WBC Count 2.70(L) 3.70 - 10.30 10*3/uL LAB HEMATOLOGY METHOD 09/19/2024 9:13 AM EDT [facility] RBC Count 1.86(L) 3.90 - 5.20 10*6/uL LAB HEMATOLOGY METHOD 09/19/2024 9:13 AM EDT [facility] HGB 7.1(L) 11.2 - 15.7 g/dL LAB HEMATOLOGY METHOD 09/19/2024 9:13 AM EDT [facility] HCT 21.5(L) 34.0 - 45.0 % LAB HEMATOLOGY METHOD 09/19/2024 9:13 AM EDT [facility] Platelet Count 14(LL) 155 - 369 10*3/uL LAB HEMATOLOGY METHOD 09/19/2024 9:13 AM EDT [facility] MCV 116(H) 79 - 98 fL LAB HEMATOLOGY METHOD 09/19/2024 9:13 AM EDT [facility] MCH 38.2(H) 26.0 - 32.0 pg LAB HEMATOLOGY METHOD 09/19/2024 9:13 AM EDT [facility] MCHC 33.0 30.7 - 35.5 g/dL LAB HEMATOLOGY METHOD 09/19/2024 9:13 AM EDT [facility] RDW 21.8(H) 11.5 - 14.5 % LAB HEMATOLOGY METHOD 09/19/2024 9:13 AM EDT [facility] MPV 13.5(H) 8.8 - 12.5 fL LAB HEMATOLOGY METHOD 09/19/2024 9:13 AM EDT [facility] nRBC 0.0 <=0.0 per 100 WBCs LAB HEMATOLOGY METHOD 09/19/2024 9:13 AM EDT [facility] Differential Type Automated LAB HEMATOLOGY METHOD 09/19/2024 9:13 AM EDT [facility] Neutrophils % 51 % LAB HEMATOLOGY METHOD 09/19/2024 9:13 AM EDT [facility] Lymphocytes % 41 % LAB HEMATOLOGY METHOD 09/19/2024 9:13 AM EDT [facility] Monocytes % 7 % LAB HEMATOLOGY METHOD 09/19/2024 9:13 AM EDT [facility] Eosinophils % 1 % LAB HEMATOLOGY METHOD 09/19/2024 9:13 AM EDT [facility] Basophils % 0 % LAB HEMATOLOGY METHOD 09/19/2024 9:13 AM EDT [facility] Immature Granulocytes % 0 % LAB HEMATOLOGY METHOD 09/19/2024 9:13 AM EDT [facility] Neutrophils Absolute 1.35(L) 1.60 - 6.10 10*3/uL LAB HEMATOLOGY METHOD 09/19/2024 9:13 AM EDT [facility] Lymphocytes Absolute 1.10(L) 1.20 - 3.90 10*3/uL LAB HEMATOLOGY METHOD 09/19/2024 9:13 AM EDT [facility] Monocytes Absolute 0.20(L) 0.30 - 0.90 10*3/uL LAB HEMATOLOGY METHOD 09/19/2024 9:13 AM EDT [facility] Eosinophils Absolute 0.03 0.00 - 0.50 10*3/uL LAB HEMATOLOGY METHOD 09/19/2024 9:13 AM EDT [facility] Basophils Absolute 0.01 0.00 - 0.10 10*3/uL LAB HEMATOLOGY METHOD 09/19/2024 9:13 AM EDT [facility] Immature Granulocytes Absolute 0.01 0.00 - 0.06 10*3/uL LAB HEMATOLOGY METHOD 09/19/2024 9:13 AM EDT [facility] Blood Blood sample taken from central line / Unknown (Port) Long-term Catheter / Unknown 09/19/2024 7:29 AM EDT 09/19/2024 8:08 AM EDT Narrative [facility] - 09/19/2024 9:13 AM EDT Therapeutic decision making should be based on absolute values, rather than percentages. New Mckinney MD LAB BLOOD ORDERABLES Final Re sult [facility] [address] [place] [address] * Bone marrow exam (09/19/2024 7:29 AM EDT) Case Report Bone Marrow Case: [id number] Authorizing Provider: New Mckinney MD Collected: 09/19/2024 0729 Ordering Location: [facility] Hematology/BMT and Received: 09/19/2024 1216 Cellular Therapy Program Pathologist: Lisandra Epsetin MD Specimens: A) - Bone Marrow Aspirate, right B) - Bone Marrow Biopsy, right C) - Peripheral Blood for Bone Marrow 4:30 PM EDT [facility] Cytogenetics Report, Addendum Chromosome Analysis Result Giemsa-banded metaphase cells from unstimulated bone marrow cultures showed a 46,XX[20] chromosome pattern. Interpretation Normal female chromosome analysis. No clonal abnormalities were detected at current resolution. Clinical correlation is recommended. 4:30 PM EDT [facility] Addendum electronically signed by Lisandra Epstein MD on 09/24/2024 at 1630 EDT Final Diagnosis PERIPHERAL BLOOD AND BONE MARROW, RIGHT POSTERIOR ILIAC CREST, (ASPIRATE SMEAR, AND CORE BIOPSY): - HYPOCELLULAR BONE MARROW WITH MARKEDLY DECREASED MEGAKARYOCYTES; NO SIGNIFICANT DYSPOIESIS OR INCREASE IN BLASTS. 4:30 PM EDT [facility] at 1453 EDT Clinical Information AML 09/14 4:30 PM EDT [facility] CBC [...] Circulating blasts are not seen. 4:30 PM T [facility] Bone Marrow Differential BONE MARROW DIFFERENTIAL: 200 cells Normal Patient Neutrophils 15-50 34 Metamyelocytes 4-19 3 Myelocytes 1-18 10 Promyelocytes 1-8 1 Blasts 0-2 1 Monocytes 0-5 4 Erythroid 16-38 22 Lymphocytes 3-24 13 Eosinophils 0-6 8 Basophils 0-2 0 Plasma cells 0-4 4 Other 4:30 PM T [facility] Bone Marrow Aspirate [...] identified. Bone trabeculae are unremarkable. 4:[address] [facility] Special and Immunohistochemical Stains Special Stain: A1-1 Vazquez-Giemsa A1-2 Vazquez-Giemsa A1-3 Vazquez-Giemsa C1-1 Vazquez-Giemsa IHC: B1-2 CD34 All controls show appropriate reactivity. All immunohistochemis try, in situ hybridization, and histochemical tests were developed by and are performed at the [facility], [address] [facility], [place] [address]. All tests reported here, except those addressing [...] likelihood of false negativity on decalcified specimens. 4:30 PM EDT [facility] Flow Cytometry Interpretation MIXED MARROW ELEMENTS WITH NO EVIDENCE OF INCREASED BLASTS OR ABNORMAL LYMPHOID POPULATIONS ([id number]). 4:30 PM EDT [facility] CYTOGENETICS/MOLECULA R INTERPRETATION Correlation with cytogenetic/molec ular analysis is suggested. 4:30 PM EDT [facility] Gross Description B. RIGHT A single specimen is received in formalin labeled bone marrow biopsy right posterior iliac crest and consists of 2 piece(s) of red/white tissue measuring 2.1/0.3 cm in length 0.2 cm in diameter. The specimen is submitted in to Histology for decalcification and routine processing. Cold Time: <1m 4:30 PM T [facility] Note: A resident was involved in the service. I attest I examined the relevant preparations for the specimens and confirmed the diagnosis or interpretation. 4:30 PM EDT [facility] Bone [...] - Final [facility] [address] [place] [address] * (ABNORMAL) Comprehensive Metabolic Panel, Plasma (07/30/2024 8:14 AM EDT) Only the most recent of2 resultswithin the time period is included. Glucose, Plasma 142(H) 74 - 99 mg/dL 07/30/2024 8:56 AM EDT [facility] BUN, Plasma 24(H) 8 - 23 mg/dL 07/30/2024 8:56 AM EDT [facility] Creatinine, Plasma 1.06 0.60 - 1.10 mg/dL 07/30/2024 8:56 AM EDT [facility] BUN/Creatinine Ratio 23 07/30/2024 8:56 AM EDT [facility] Sodium, Plasma 140 136 - 145 mmol/L 07/30/2024 8:56 AM EDT [facility] Potassium, Plasma 4.1 3.6 - 4.9 mmol/L 07/30/2024 8:56 AM EDT [facility] Chloride, Plasma 107 97 - 107 mmol/L 07/30/2024 8:56 AM EDT [facility] CO2, Plasma 23 22 - 29 mmol/L 07/30/2024 8:56 AM EDT [facility] Anion Gap 10 6 - 16 mmol/L 07/30/2024 8:56 AM EDT [facility] Total Calcium, Plasma 9.9 8.9 - 10.2 mg/dL 07/30/2024 8:56 AM EDT [facility] Total Protein 6.1(L) 6.3 - 7.9 g/dL 07/30/2024 8:56 AM EDT [facility] Albumin, Plasma 3.7 3.5 - 5.2 g/dL 07/30/2024 8:56 AM EDT [facility] AST, Plasma 30 10 - 35 U/L 07/30/2024 8:56 AM EDT [facility] ALT, Plasma 11 10 - 35 U/L 07/30/2024 8:56 AM EDT [facility] Alkaline Phosphatase, Plasma 35(L) 46 - 142 U/L 07/30/2024 8:56 AM EDT [facility] Total Bilirubin, Plasma 0.3 0.2 - 1.1 mg/dL 07/30/2024 8:56 AM EDT [facility] eGFRcr 55.6 mL/min/1.7 3m*2 07/30/2024 8:56 AM EDT [facility] Comment:Reported eGFRcr in m L/min/1.73m2 is based the CKD-EPI 2020 equation that does not use a race coefficient. Blood Venous blood specimen / Unknown (Port) Long-term Catheter / Unknown 07/30/2024 8:14 AM EDT 07/30/2024 8:27 AM EDT us Zonia Hoffman APRN LAB BLOOD ORDERABLES Final Res ult Performing Organization Address City/[facility] [address]/ZIP Co de Phone Number [facility] [address] [place] [address] * Hepatitis C Antibody w/Reflex to HCV Quant PCR (01/07/2024 8:42 AM EDT) Hepatitis C Antibody Negative Negative 01/07/2024 10:13 AM EDT [facility] Blood Venous blood specimen / Unknown Venipuncture / Unknown 01/07/2024 8:42 AM EDT 01/07/2024 9:25 AM EDT us New Mckinney MD LAB BLOOD ORDERABLES Final Re sult [facility] [address] [place] [address] from Last 3 Months or Most Recently Relevant to Health Maintenance [place] [address] ANTHEM Care Teams Automotive Leasing Sales Representative Relationship Specialty Start Date End Date Jevon Vazquez MD [address] [place] [address] #1 #1 [place] [address] PCP - General 03/23/22
--- OUTSIDE RECORDS SUMMARY | 2024-09-26 08:59 | XMS_ITS | Encounter Summary ---
Author Organization Healthcare Address [address] [place] [address] Care Team Providers Care Assistant Community Director Name Role Phone Jevon Vazquez MD Primary Care Provider [phone] Encounter Details Date Type Department Care Team [...] Hematology/BMT and Cellular Therapy Program [address] [address] 09/30/2024 9:30 AM EDT Office Visit [facility] Hematology/BMT and Cellular Therapy Program [address] [address] Zonia Hoffman, MOCCASIN SEWER 800 [facility] [address] [place] [address] 09/30/2024 11:00 AM EDT Appointment [facility] 1 [address] [place] [address] 10/01/2024 8:30 AM EDT Appointment [facility] 1 [address] [place] [address] 10/02/2024 8:00 AM EDT Appointment [facility] 1 [address] [place] [address] 10/03/2024 8:00 AM EDT Appointment [facility] 1 [address] [place] [address] 10/04/2024 8:00 AM EDT Appointment [facility] 1 [address] [place] [address] 10/05/2024 8:00 AM EDT Appointment [facility] 1 [address] [place] [address] 10/06/2024 8:00 AM EDT Appointment [facility] 1 [address] [place] [address] 10/28/2024 11:00 AM EDT Clinical Support [facility] Hematology/BMT and Cellular Therapy Program [address] [address] 10/28/2024 11:30 AM EDT Office Visit [facility]AV Hematology/BMT and Cellular Therapy Program [address] [address] Zonia Hoffman, MOCCASIN SEWER 800 [facility] [address] [place] [address] documented as of this encounter Visit Diagnoses Not on filedocumented in this encounter Additional Health Concerns Assessment Noted Time A fall risk assessment has been complete d for the patient 07/30/2024 8:29 AM EDT A Body Mass Index follow-up plan has been documented for the patient 05/28/2024 1:52 PM EST documented as of this encounter Care Teams Assistant Community Director Relationship Specialty Start Date End Date Jevon Vazquez MD [address] [place] [address] [address]1 [address] [place] [address] PCP - General 03/23/22 documented as of this encounter
--- OUTSIDE RECORDS SUMMARY | 2024-09-26 08:59 | XMS_ITS | Encounter Summary ---
Author Organization Healthcare Address [address] [place] [address] Care Team Providers Care Regional Merchandising Manager Name Role Phone Jevon Vazquez MD Primary Care Provider [phone] Encounter Details Date Type Department Care Team ([facility] st Contact Info) Description 08/18/2024 Telephone [facility] Hematology/BMT and Cellular Therapy Program [address] [address] Romana Gorman, SETTER OUT 800 [facility] [address] [place] [address] Social History Tobacco Use Types Packs/Day Years [...] to her levels being low Callback number: [phone] documented in this encounter Plan of Treatment Upcoming Encounters Date Type Department Care Team ([facility] st Contact Info) Description 09/30/2024 9:00 AM EDT Clinical Support [facility] Hematology/BMT and Cellular Therapy Program [address] [address] 09/30/2024 9:30 AM EDT Office Visit [facility] Hematology/BMT and Cellular Therapy Program [address] [address] Zonia Hoffman, SETTER OUT 800 [facility] [address] [place] [address] 09/30/2024 11:00 AM EDT Appointment [facility] 1 [address] [place] [address] 10/01/2024 8:30 AM EDT Appointment [facility] 1 [address] [place] [address] 10/02/2024 8:00 AM EDT Appointment [facility] 1 [address] [place] [address] 10/03/2024 8:00 AM EDT Appointment [facility] 1 [address] [place] [address] 10/04/2024 8:00 AM EDT Appointment [facility] 1 [address] [place] [address] 10/05/2024 8:00 AM EDT Appointment [facility] 1 [address] [place] [address] 10/06/2024 8:00 AM EDT Appointment [facility] 1 [address] [place] [address] 10/28/2024 11:00 AM EDT Clinical Support P[facility] Hematology/BMT and Cellular Therapy Program [address] [place] [address] 10/28/2024 11:30 AM EDT Office Visit [facility] Hematology/BMT and Cellular Therapy Program [address] [place] [address] Zonia Hoffman, SETTER OUT 800 [facility] [address] [place] [address] documented as of this encounter Visit Diagnoses Not on filedocumented in this encounter Additional Health Concerns Assessment Noted Time A fall risk assessment has been complete d for the patient 07/30/2024 8:29 AM EDT A Body Mass Index follow-up plan has been documented for the patient 05/28/2024 1:52 PM EST documented as of this encounter Care Teams Regional Merchandising Manager Relationship Specialty Start Date End Date Jevon Vazquez MD [address] [place] [address] [address]1 [address]1 [place] [address] PCP - General 03/23/22 documented as of this encounter
--- OUTSIDE RECORDS SUMMARY | 2024-09-26 08:59 | XMS_ITS | Encounter Summary ---
Author Organization Healthcare Address [address] [place] [address] Care Team Providers Care Pump Servicer Helper Name Role Phone Jevon Vazquez MD Primary Care Provider [phone] Encounter Details Date Type Department Care Team [...] Hematology/BMT and Cellular Therapy Program [address] [address] 09/30/2024 9:30 AM EDT Office Visit [facility] Hematology/BMT and Cellular Therapy Program [address] [address] Zonia Hoffman, PURCHASING DEPARTMENT CLERK 800 [facility] [address] [place] [address] 09/30/2024 11:00 AM EDT Appointment [facility] 1 [address] [place] [address] 10/01/2024 8:30 AM EDT Appointment [facility] 1 [address] [place] [address] 10/02/2024 8:00 AM EDT Appointment [facility] 1 [address] [place] [address] 10/03/2024 8:00 AM EDT Appointment [facility] 1 [address] [place] [address] 10/04/2024 8:00 AM EDT Appointment [facility] 1 [address] [place] [address] 10/05/2024 8:00 AM EDT Appointment [facility] 1 [address] [place] [address] 10/06/2024 8:00 AM EDT Appointment [facility] 1 [address] [place] [address] 10/28/2024 11:00 AM EDT Clinical Support [facility] Hematology/BMT and Cellular Therapy Program [address] [address] 10/28/2024 11:30 AM EDT Office Visit [facility] Hematology/BMT and Cellular Therapy Program [address] [address] Zonia Hoffman, PURCHASING DEPARTMENT CLERK 800 [facility] [address] [place] [address] documented as of this encounter Visit Diagnoses Not on filedocumented in this encounter Additional Health Concerns Assessment Noted Time A fall risk assessment has been complete d for the patient 09/19/2024 8:38 AM EDT A Body Mass Index follow-up plan has been documented for the patient 05/28/2024 1:52 PM EST documented as of this encounter Care Teams Pump Servicer Helper Relationship Specialty Start Date End Date Jevon Vazquez MD [address] [place] [address] [address]1 [address] [place] [address] PCP - General 03/23/22 documented as of this encounter
--- OUTSIDE RECORDS SUMMARY | 2024-09-26 08:59 | XMS_ITS | Encounter Summary ---
Author Organization Healthcare Address [address] [place] [address] Care Team Providers Care Mechanical Maintenance Technician Name Role Phone Jevon Vazquez MD Primary Care Provider [phone] Encounter Details Date Type Department Care Team [...] Hematology/BMT and Cellular Therapy Program [address] [address] 09/30/2024 9:30 AM EDT Office Visit [facility] Hematology/BMT and Cellular Therapy Program [address] [address] Zonia Hoffman, SWIMMING POOL MAINTENANCE 800 [facility] [address] [place] [address] 09/30/2024 11:00 AM EDT Appointment [facility] 1 [address] [place] [address] 10/01/2024 8:30 AM EDT Appointment [facility] 1 [address] [place] [address] 10/02/2024 8:00 AM EDT Appointment [facility] 1 [address] [place] [address] 10/03/2024 8:00 AM EDT Appointment [facility] 1 [address] [place] [address] 10/04/2024 8:00 AM EDT Appointment [facility] 1 [address] [place] [address] 10/05/2024 8:00 AM EDT Appointment [facility] 1 [address] [place] [address] 10/06/2024 8:00 AM EDT Appointment [facility] 1 [address] [place] [address] 10/28/2024 11:00 AM EDT Clinical Support [facility] Hematology/BMT and Cellular Therapy Program [address] [address] 10/28/2024 11:30 AM EDT Office Visit [facility] Hematology/BMT and Cellular Therapy Program [address] [address] Zonia Hoffman, SWIMMING POOL MAINTENANCE 800 [facility] [address] [place] [address] documented as of this encounter Visit Diagnoses Not on filedocumented in this encounter Additional Health Concerns Assessment Noted Time A fall risk assessment has been complete d for the patient 09/19/2024 8:38 AM EDT A Body Mass Index follow-up plan has been documented for the patient 05/28/2024 1:52 PM EST documented as of this encounter Care Teams Mechanical Maintenance Technician Relationship Specialty Start Date End Date Jevon Vazquez MD [address] [place] [address] [address]1 [address] [place] [address] PCP - General 03/23/22 documented as of this encounter
--- OUTSIDE RECORDS SUMMARY | 2024-09-26 08:59 | XMS_ITS | Encounter Summary ---
Author Organization Healthcare Address [address] [place] [address] Care Team Providers Care Human Resource Advisor Name Role Phone Jevon Vazquez MD Primary Care Provider [phone] Encounter Details Date Type Department Care Team [...] CC Hematology/BMT and Cellular Therapy Program [address] [address] 09/30/2024 9:30 AM EDT Office Visit [facility] Hematology/BMT and Cellular Therapy Program [address] [address] Zonia Hoffman, UNHAIRER 800 [facility] [address] [place] [address] 09/30/2024 11:00 AM EDT Appointment [facility] 1 [address] [place] [address] 10/01/2024 8:30 AM EDT Appointment [facility] 1 [address] [place] [address] 10/02/2024 8:00 AM EDT Appointment [facility] 1 [address] [place] [address] 10/03/2024 8:00 AM EDT Appointment [facility] 1 [address] [place] [address] 10/04/2024 8:00 AM EDT Appointment [facility] 1 [address] [place] [address] 10/05/2024 8:00 AM EDT Appointment [facility] 1 [address] [place] [address] 10/06/2024 8:00 AM EDT Appointment [facility] 1 [address] [place] [address] 10/28/2024 11:00 AM EDT Clinical Support [facility] Hematology/BMT and Cellular Therapy Program [address] [address] 10/28/2024 11:30 AM EDT Office Visit [facility] Hematology/BMT and Cellular Therapy Program [address] [address] Zonia Hoffman, UNHAIRER 800 [facility] [address] [place] [address] documented as of this encounter Visit Diagnoses Not on filedocumented in this encounter Additional Health Concerns Assessment Noted Time A fall risk assessment has been complete d for the patient 07/30/2024 8:29 AM EDT A Body Mass Index follow-up plan has been documented for the patient 05/28/2024 1:52 PM EST documented as of this encounter Care Teams Human Resource Advisor Relationship Specialty Start Date End Date Jevon Vazquez MD [address] [place] [address] #1 [address] [place] [address] PCP - General 03/23/22 documented as of this encounter
--- OUTSIDE RECORDS SUMMARY | 2024-09-26 08:59 | XMS_ITS | Encounter Summary ---
Author Organization Healthcare Address [address] [place] [address] Care Team Providers Care Gauge Controller Name Role Phone Jevon Vazquez MD Primary Care Provider [phone] Encounter Details Date Type Department Care Team [...] Hematology/BMT and Cellular Therapy Program [address] [address] 09/30/2024 9:30 AM EDT Office Visit [facility] Hematology/BMT and Cellular Therapy Program [address] [address] Zonia Hoffman, PRODUCE BUYER 800 [facility] [address] [place] [address] 09/30/2024 11:00 AM EDT Appointment [facility] 1 [address] [place] [address] 10/01/2024 8:30 AM EDT Appointment [facility] 1 [address] [place] [address] 10/02/2024 8:00 AM EDT Appointment [facility] 1 [address] [place] [address] 10/03/2024 8:00 AM EDT Appointment [facility] 1 [address] [place] [address] 10/04/2024 8:00 AM EDT Appointment [facility] 1 [address] [place] [address] 10/05/2024 8:00 AM EDT Appointment [facility] 1 [address] [place] [address] 10/06/2024 8:00 AM EDT Appointment [facility] 1 [address] [place] [address] 10/28/2024 11:00 AM EDT Clinical Support [facility] CC Hematology/BMT and Cellular Therapy Program [address] [address] 10/28/2024 11:30 AM EDT Office Visit P[facility] Hematology/BMT and Cellular Therapy Program [address] [address] Zonia Hoffman, PRODUCE BUYER 800 [facility] [address] [place] [address] documented as of this encounter Visit Diagnoses Not on filedocumented in this encounter Additional Health Concerns Assessment Noted Time A fall risk assessment has been complete d for the patient 07/30/2024 8:29 AM EDT A Body Mass Index follow-up plan has been documented for the patient 05/28/2024 1:52 PM EST documented as of this encounter Care Teams Gauge Controller Relationship Specialty Start Date End Date Jevon Vazquez MD [address] [place] [address] #1 [address] [place] [address] PCP - General 03/23/22 documented as of this encounter
--- OUTSIDE RECORDS SUMMARY | 2024-09-26 08:59 | XMS_ITS | Encounter Summary ---
Author Organization Healthcare Address [address] [place] [address] Care Team Providers Care Tour Coordinator Name Role Phone Jevon Vazquez MD Primary Care Provider [phone] Encounter Details Date Type Department Care Team [...] Hematology/BMT and Cellular Therapy Program [address] [address] 09/30/2024 9:30 AM EDT Office Visit [facility] Hematology/BMT and Cellular Therapy Program [address] [address] Zonia Hoffman, MUSIC VIDEO DIRECTOR 800 [facility] [address] [place] [address] 09/30/2024 11:00 AM EDT Appointment [facility] 1 [address] [place] [address] 10/01/2024 8:30 AM EDT Appointment [facility] 1 [address] [place] [address] 10/02/2024 8:00 AM EDT Appointment [facility] 1 [address] [place] [address] 10/03/2024 8:00 AM EDT Appointment [facility] 1 [address] [place] [address] 10/04/2024 8:00 AM EDT Appointment [facility] 1 [address] [place] [address] 10/05/2024 8:00 AM EDT Appointment [facility] 1 [address] [place] [address] 10/06/2024 8:00 AM EDT Appointment [facility] 1 [address] [place] [address] 10/28/2024 11:00 AM EDT Clinical Support [facility] CC Hematology/BMT and Cellular Therapy Program [address] [address] 10/28/2024 11:30 AM EDT Office Visit PAV Hematology/BMT and Cellular Therapy Program [address] [address] Zonia Hoffman, MUSIC VIDEO DIRECTOR 800 [facility] [address] [place] [address] documented as of this encounter Visit Diagnoses Not on filedocumented in this encounter Additional Health Concerns Assessment Noted Time A fall risk assessment has been complete d for the patient 07/30/2024 8:29 AM EDT A Body Mass Index follow-up plan has been documented for the patient 05/28/2024 1:52 PM EST documented as of this encounter Care Teams Tour Coordinator Relationship Specialty Start Date End Date Jevon Vazquez MD [address] [place] [address] #1 [address] [place] [address] PCP - General 03/23/22 documented as of this encounter
--- OUTSIDE RECORDS SUMMARY | 2024-09-26 08:59 | XMS_ITS | Encounter Summary ---
Author Organization Healthcare Address [address] [place] [address] Care Team Providers Care Spring Former Name Role Phone Jevon Vazquez MD Primary Care Provider [phone] Encounter Details Date Type Department Care Team ([facility] st Contact Info) Description 09/01/2024 Telephone [facility] CC Hematology/BMT and Cellular Therapy Program [address] [address] Zonia Hoffman, LEAD SYSTEMS DEVELOPER 800 [facility] [address] [place] [address] Social History Tobacco Use Types Packs/Day Years [...] told her to cancel. Please confirm Callback number:[phone] documented in this encounter Plan of Treatment Upcoming Encounters Date Type Department Care Team (Late st Contact Info) Description 09/30/2024 9:00 AM EDT Clinical Support [facility] Hematology/BMT and Cellular Therapy Program [address] [address] 09/30/2024 9:30 AM EDT Office Visit PAV Hematology/BMT and Cellular Therapy Program [address] [address] Zonia Hoffman, LEAD SYSTEMS DEVELOPER 800 [facility] [address] [place] [address] 09/30/2024 11:00 AM EDT Appointment [facility] 1 [address] [place] [address] 10/01/2024 8:30 AM EDT Appointment [facility] 1 [address] [place] [address] 10/02/2024 8:00 AM EDT Appointment [facility] 1 [address] [place] [address] 10/03/2024 8:00 AM EDT Appointment [facility] 1 [address] [place] [address] 10/04/2024 8:00 AM EDT Appointment [facility] 1 [address] [place] [address] 10/05/2024 8:00 AM EDT Appointment [facility] 1 [address] [place] [address] 10/06/2024 8:00 AM EDT Appointment [facility] 1 4 [place] [address] 10/28/2024 11:00 AM EDT Clinical Support [facility] CC Hematology/BMT and Cellular Therapy Program [address] [place] [address] 10/28/2024 11:30 AM EDT Office Visit PAV Hematology/BMT and Cellular Therapy Program [address] [place] [address] Zonia Hoffman, LEAD SYSTEMS DEVELOPER 800 [facility] [address] [place] [address] documented as of this encounter Visit Diagnoses Not on filedocumented in this encounter Additional Health Concerns Assessment Noted Time A fall risk assessment has been complete d for the patient 07/30/2024 8:29 AM EDT A Body Mass Index follow-up plan has been documented for the patient 05/28/2024 1:52 PM EST documented as of this encounter Care Teams Spring Former Relationship Specialty Start Date End Date Jevon Vazquez MD [address] [place] [address] #1 [address] [place] [address] PCP - General 03/23/22 documented as of this encounter
--- OUTSIDE RECORDS SUMMARY | 2024-09-26 08:59 | XMS_ITS | Encounter Summary ---
Author Organization Healthcare Address [address] [place] [address] Care Team Providers Care Finisher Polisher Name Role Phone Jevon Vazquez MD Primary Care Provider [phone] Encounter Details Date Type Department Care Team [...] Hematology/BMT and Cellular Therapy Program [address] [address] 09/30/2024 9:30 AM EDT Office Visit [facility] CC Hematology/BMT and Cellular Therapy Program [address] [address] Zonia Hoffman, DREDGEMASTER 800 [facility] [address] [place] [address] 09/30/2024 11:00 AM EDT Appointment [facility] 1 [address] [place] [address] 10/01/2024 8:30 AM EDT Appointment [facility] 1 [address] [place] [address] 10/02/2024 8:00 AM EDT Appointment [facility] 1 [address] [place] [address] 10/03/2024 8:00 AM EDT Appointment [facility] 1 [address] [place] [address] 10/04/2024 8:00 AM EDT Appointment [facility] 1 [address] [place] [address] 10/05/2024 8:00 AM EDT Appointment [facility] 1 [address] [place] [address] 10/06/2024 8:00 AM EDT Appointment [facility] 1 [address] [place] [address] 10/28/2024 11:00 AM EDT Clinical Support [facility] CC Hematology/BMT and Cellular Therapy Program [address] [address] 10/28/2024 11:30 AM EDT Office Visit PAV Hematology/BMT and Cellular Therapy Program [address] [address] Zonia Hoffman, DREDGEMASTER 800 [facility] [address] [place] [address] documented as of this encounter Visit Diagnoses Not on filedocumented in this encounter Additional Health Concerns Assessment Noted Time A fall risk assessment has been complete d for the patient 07/30/2024 8:29 AM EDT A Body Mass Index follow-up plan has been documented for the patient 05/28/2024 1:52 PM EST documented as of this encounter Care Teams Finisher Polisher Relationship Specialty Start Date End Date Jevon Vazquez MD [address] [place] [address] #1 [address] [place] [address] PCP - General 03/23/22 documented as of this encounter
--- OUTSIDE RECORDS SUMMARY | 2024-09-26 08:59 | XMS_ITS | Encounter Summary ---
Author Organization Healthcare Address [address] [place] [address] Care Team Providers Care Oil Field Caser Name Role Phone Jevon Vazquez MD Primary Care Provider [phone] Encounter Details Date Type Department Care Team (Latest Contact Info) Description 09/24/2024 Travel Social History Tobacco Use Types Packs/Day [...] Hematology/BMT and Cellular Therapy Program [address] [address] 09/30/2024 9:30 AM EDT Office Visit [facility] Hematology/BMT and Cellular Therapy Program [address] [address] Zonia Hoffman, DRUG REGULATORY AFFAIRS SPECIALIST [address] [facility] [address] [place] [address] 09/30/2024 11:00 AM EDT Appointment [facility] 1 [address] [place] [address] 10/01/2024 8:30 AM EDT Appointment [facility] 1 [address] [place] [address] 10/02/2024 8:00 AM EDT Appointment [facility] 1 [address] [place] [address] 10/03/2024 8:00 AM EDT Appointment [facility] 1 [address] [place] [address] 10/04/2024 8:00 AM EDT Appointment [facility] 1 [address] [place] [address] 10/05/2024 8:00 AM EDT Appointment [facility] 1 [address] [place] [address] 10/06/2024 8:00 AM EDT Appointment [facility] 1 [address] [place] [address] 10/28/2024 11:00 AM EDT Clinical Support [facility] Hematology/BMT and Cellular Therapy Program [address] [address] 10/28/2024 11:30 AM EDT Office Visit PAV Hematology/BMT and Cellular Therapy Program [address] [address] Zonia Hoffman, DRUG REGULATORY AFFAIRS SPECIALIST 800 [facility] [address] [place] [address] documented as of this encounter Visit Diagnoses Not on filedocumented in this encounter Additional Health Concerns Assessment Noted Time A fall risk assessment has been complete d for the patient 09/19/2024 8:38 AM EDT A Body Mass Index follow-up plan has been documented for the patient 05/28/2024 1:52 PM EST documented as of this encounter Care Teams Oil Field Caser Relationship Specialty Start Date End Date Jevon Vazquez MD [address] [place] [address] #1 [address] [place] [address] PCP - General 03/23/22 documented as of this encounter
[2024-09-26] MEDS: SODIUM CHLORIDE 0.9% 10ML FLUSH SYRINGE 10 ML IV (09:15)
[2024-09-26 09:16] LABS: Basophils % 0.5 % (0.1-2.0); Eosinophils % 1.8 % (0.1-12.0); Hematocrit 21.2 % (37.0-47.0); Hemoglobin 7.3 g/dL (12.2-16.2); Immature Granulocytes # 0 10^3uL; Immature Granulocytes % 0 %; Lymphocytes # 0.9 K/mm3 (0.7-4.5); Lymphocytes % 41.8 % (10-50); Mean Corpuscular HGB Conc 34.4 g/dL (31.8-35.4); Mean Corpuscular Volume 116.5 fl (81-99); Mean Platelet Volume 11.5 fl (7.4-10.4); Monocytes # 0.2 K/mm3 (0.1-1.0); Monocytes % 7.3 % (1.7-9.3); Neutrophils # 1.1 K/mm3 (1.8-7.8); Neutrophils % 48.6 % (37.0-80.0); Nucleated Red Blood Cells # 0 10^3/uL; Nucleated Red Blood Cells % 0 %; Red Blood Count 1.82 M/mm3 (4.20-5.40); Red Cell Distribution Width 19.2 % (11.5-17.5); Red Cell Distribution Width-SD 79.1 fL; White Blood Count 2.2 K/mm3 (4.8-10.8)
[2024-09-26 09:17] LABS: Mean Corpuscular Hemoglobin 40.1 pg (27.0-31.2)
[2024-09-26 09:19] LABS: Platelet Count 16 K/mm3 (142-424)
[2024-09-26 09:21] LABS: Albumin Level 3.5 g/dl (3.5-5.0); Chloride 109 mmol/L (98-107); Potassium 3.8 mmoL/L (3.5-5.1); Sodium 138 mmol/L (136-145)
[2024-09-26 09:24] LABS: Alanine Aminotransferase 16 U/L (12-78); Albumin/Globulin Ratio 1.6 (1.1-1.8); Alkaline Phosphatase 41 U/L (38-126); Anion Gap 7.8 mEq/L (5-15); Aspartate Amino Transferase 43 U/L (14-36); Bilirubin,Total 0.2 mg/dl (0.2-1.3); Blood Urea Nitrogen 19 mg/dl (7-17); Calcium 9.6 mg/dl (8.4-10.2); Carbon Dioxide 25 mmol/L (22.0-30.0); Creatinine Clearance Estimated 43 mL/min (50-200); Estimated Glomerular Filt Rate 61 ml/min (>60); GFR (African American) 74 ML/MIN (>60); Globulin 2.2 g/dL (1.3-3.2); Glucose 174 mg/dl (74-100); Total Protein,Serum 5.7 g/dl (6.3-8.2)
== END 2024-09-26 09:20 | disposition home or self-care (01) ==
LOC: INF 08:56
PROVIDERS: PCP Family Medicine; Visit Provider Internal Medicine Medical Oncology
DX: C92.00 Acute myeloblastic leukemia, not having achieved remission (principal)
CPT/HCPCS: 36591; 80053; 85025; J1642

== ENCOUNTER 2024-09-29 08:53 | Outpatient (CLI) | payer MEDICARE, BC, SELFPAY ==
--- OUTSIDE RECORDS SUMMARY | 2024-09-19 07:30 | XMS_ITS | Encounter Summary ---
Author Organization [facility] Address [address] [place] [address] Care Team Providers Care Field Machinist Name Role Phone Jevon Vazquez MD Primary Care Provider [phone] Reason for Visit * Reason Comments Nurse Visit Encounter Details Date Type Department Care Team ([facility] Contact Info) Description 09/19/2024 7:30 AM EDT Clinical Support [facility] H[facility]ology/BMT and Cellular Therapy Program [address] [phone] Social History Tobacco Use Types Packs/Day Years [...] Upcoming Encounters Date Type Department Care Team ([facility] Contact Info) Description 09/30/2024 9:00 AM EDT Clinical Support [facility] Cellular Therapy [facility] [address] [phone] 09/30/2024 9:30 AM EDT Office Visit [facility] Cellular Therapy [facility] [address] [phone] Zonia Hoffman, CUSTOMER RELATIONS ADVISOR [facility] [address] [place] [phone] 09/30/2024 11:00 AM EDT Appointment [facility] [address] [place] [address] 10/01/2024 8:30 AM EDT Appointment [facility] 1 [address] [place] [address] 10/02/2024 8:00 AM EDT Appointment [facility] 1 [address] [place] [address] 10/03/2024 8:00 AM EDT Appointment [facility] 1 [address] [place] [address] 10/04/2024 8:00 AM EDT Appointment [facility] 1 [address] [place] [address] 10/05/2024 8:00 AM EDT Appointment [facility] 1 [address] [place] [address] 10/06/2024 8:00 AM EDT Appointment [facility] 1 [address] [place] [address] 10/28/2024 11:00 AM EDT Clinical Support [facility] Cellular Therapy [facility] [address] [address] 10/28/2024 11:30 AM EDT Office Visit [facility]BMT [facility] Cellular Therapy Program [address] [address] Zonia Hoffman, CUSTOMER RELATIONS ADVISOR [facility] [address] [place] [phone] documented as of this encounter Visit Diagnoses Not on filedocumented in this encounter Additional Health Concerns Assessment Noted Time A fall risk assessment has been complete d for the patient 09/19/2024 8:38 AM EDT A Body Mass Index follow-up plan has been documented for the patient 05/28/2024 1:52 PM EST documented as of this encounter Care Teams Field Machinist Relationship Specialty Start Date End Date Jevon Vazquez MD [address] [place] [address] #1 #1 [place] [address] PCP - General 03/23/22 documented as of this encounter
--- OUTSIDE RECORDS SUMMARY | 2024-09-19 09:30 | XMS_ITS | Encounter Summary ---
Author Organization Healthcare Address [address] [place] [address] Care Team Providers Care Parcel Post Delivery Name Role Phone Jevon Vazquez MD Primary Care Provider [phone] Reason for Visit * Reason Comments Follow-up Encounter Details Date Type Department Care Team (Latest Contact Info) Description 09/19/2024 9:30 AM EDT Clinical Support [facility] Cancer Acute Treatment Clinic [address] [place] [address] Acute myeloid leukemia not having achieved remission [...] Upcoming Encounters Date Type Department Care Team ([facility] st Contact Info) Description 09/30/2024 9:00 AM EDT Clinical Support [facility] Hematology/BMT and Cellular Therapy Program [address] [place] [address] 09/30/2024 9:30 AM EDT Office Visit [facility] Hematology/BMT and Cellular Therapy Program [address] [address] Zonia Hoffman, FLAKE CUTTER OPERATOR [address] [facility] [address] [place] [address] 09/30/2024 11:00 AM EDT Appointment [facility] Infusion [facility] 1 [address] [place] [address] 10/01/2024 8:30 AM EDT Appointment [facility] 1 [address] [place] [address] 10/02/2024 8:00 AM EDT Appointment [facility] 1 [address] [place] [address] 10/03/2024 8:00 AM EDT Appointment [facility] 1 [address] [place] [address] 10/04/2024 8:00 AM EDT Appointment [facility] 1 [address] [place] [address] 10/05/2024 8:00 AM EDT Appointment [facility] 1 [address] [place] [address] 10/06/2024 8:00 AM EDT Appointment [facility] 1 [address] [place] [address] 10/28/2024 11:00 AM EDT Clinical Support [facility] Hematology/BMT and Cellular Therapy Program [address] [place] [address] 10/28/2024 11:30 AM EDT Office Visit [facility] Hematology/BMT and Cellular Therapy Program [address] [address] Zonia Hoffman, FLAKE CUTTER OPERATOR [address] [facility] [address] [place] [address] documented as of this encounter Procedures Procedure Name Priority Date/Time Associated Diagnosis Comments PLATELET COUNT, BLOOD STAT 09/19/2024 10:04 AM EDT PREPARE PLATELETS Routine 09/19/2024 9:0 8 AM EDT documented in this encounter Results * (ABNORMAL) Platelet count (09/19/2024 10:04 AM EDT) Platelet Count 61(L) 155 - 369 10*3/uL LAB HEMATOLOGY METHOD 09/19/2024 10:19 AM EDT [facility] Blood Blood sample taken from central line / Unknown (Port) Long-term Catheter / Unknown 09/19/2024 10:04 AM EDT 09/19/2024 10:18 AM EDT us New Mckinney MD LAB BLOOD ORDERABLES Final Re sult [facility] [address] [place] [address] * Transfuse platelets, Irradiated (09/19/2024 10:02 AM EDT) us Lexi Ferraro APRN BLOOD TRANSFUSION ORDERABL ES Final Result * Prepare Leukocyte Reduced Platelets (09/19/2024 9:08 AM EDT) Product Code [id number] CH BLOO D BANK Dispense Status Transfused BLOOD BANK Blood Expiration Date [id number] BLOOD BANK Unit Number [id number] CH B LOOD BANK Product Blood Type 6200 CH BLOOD BANK Blood Type A+ CH BLOOD BANK us Provider Not In System BLOOD BANK PRODUCT ORD ERABLES Final Result BLOOD BANK [address] [place] [address], documented in this encounter Visit Diagnoses Diagnosis 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)- Primary 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)- Primary documented in this encounter Additional Health Concerns Assessment Noted Time A fall risk assessment has been complete d for the patient 09/19/2024 8:38 AM EDT A Body Mass Index follow-up plan has been documented for the patient 05/28/2024 1:52 PM EST documented as of this encounter Care Teams Parcel Post Delivery Relationship Specialty Start Date End Date Jevon Vazquez MD [address] [place] [address] #1 #1 [place] [address] PCP - General 03/23/22 documented as of this encounter
--- OUTSIDE RECORDS SUMMARY | 2024-09-19 12:00 | XMS_ITS | Encounter Summary ---
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 Cancer [address] [address] Phone: tel: fax: Referral ID Status Reason Start Date Expiration Date V isits Requested Visits Authorized [id number] Authorized 09/11/2024 03/13/2026 1 1 Encounter Details Date Type Department Care Team (Latest Contact Info) Description 09/19/2024 12:00 PM EDT Procedure Visit [facility] Hematology/BMT and Cellular Therapy Program [address] [phone] Lexi Ferraro, RODDY [address] [facility] Cancer [address] [address] Acute myeloid leukemia not having [...] to surronding structures. Alternatives discussed: Delayed treatment [place] protocol: Procedure explained and questions answered to [...] Upcoming Encounters Date Type Department Care Team ([facility] st Contact Info) Description 09/30/2024 9:00 AM EDT Clinical Support [facility] Hematology/BMT and Cellular Therapy Program [address] [phone] 09/30/2024 9:30 AM EDT Office Visit [facility] Hematology/BMT and Cellular Therapy Program [address] [phone] Zonia Hoffman APRN 800 [facility] [address] [place] [phone] 09/30/2024 11:00 AM EDT Appointment [facility] Infusion Clinic [address] [place] [address] 10/01/2024 8:30 AM EDT Appointment [facility] Infusion Clinic [address] [place] [address] 10/02/2024 8:00 AM EDT Appointment [facility] Infusion Clinic [address] [place] [address] 10/03/2024 8:00 AM EDT Appointment [facility] [address] [place] [address] 10/04/2024 8:00 AM EDT Appointment [facility] [address] [place] [address] 10/05/2024 8:00 AM EDT Appointment [facility] [address] [place] [address] 10/06/2024 8:00 AM EDT Appointment [facility] [address] [place] [address] 10/28/2024 11:00 AM EDT Clinical Support [facility] Hematology/BMT and Cellular Therapy Program [address] [place] [address] 10/28/2024 11:30 AM EDT Office Visit [facility] Hematology/BMT and Cellular Therapy Program [address] [phone] Zonia Hoffman, TENANT RELATIONS COORDINATOR 800 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 Alternatives discussed: Delayed treatment [place] protocol: Procedure explained and questions answered to [...] at the site and an 11 gauge Crowdrallyshidi needle was inserted into the right posterior [...] Procedure completion: Tolerated well, no immediate complications us Lexi Ferraro APRN IN CLINIC/BEDSIDE ORDERABL ES Final Result * Chromosome Karyotype, Oncology (09/19/2024 7:29 AM EDT) Specimen Type Bone Marrow 09/24/2024 2:37 PM EDT [facility] Clinical Indication Myelodysplastic Syndrome 09/24/2024 2:37 PM EDT [facility] Specimen Adequacy Adequate 025 2:37 PM EDT [facility] Chromosome Analysis Result Giemsa-banded metaphase cells from unstimulated bone marrow cultures showed a 46,XX[20] chromosome pattern. 09/24/2024 2:37 PM EDT [facility] Interpretation Normal female chromosome analysis. No clonal abnormalities were detected at current resolution. Clinical correlation is recommended. # cells counted = 20 # cells analyzed = 20 # cells karyotyped = 2 Band resolution: 450-525 09/24/2024 2:37 PM EDT [facility] Pathologist Signature Reviewed by: Corey Tejada 09/24/2024 2:37 PM EDT [facility] Bone Marrow Non-blood Collection / Unknown 09/19/2024 7:29 AM EDT 09/19/2024 12:35 PM EDT us New Mckinney MD LAB CYTOGENETICS ORDERABLES F inal Result [facility] [address] [place] [address] * Leukemia/Lymphoma - Immunophenotyping by Flow Cytometry (09/19/2024 7:29 AM EDT) Clinical Indication AML 09/22/2024 10:29 AM EDT [facility] Flow Cytometry Interpretation A. BONE MARROW FOR FLOW CYTOMETRY: - MIXED MARROW ELEMENTS WITH NO EVIDENCE OF INCREASED BLASTS OR ABNORMAL LYMPHOID POPULATIONS, SEE COMMENT. 09/22/2024 10:29 AM EDT [facility] Comments CD45/side scatter analysis shows a pattern [...] surface light chains 09/22/2024 10:29 AM EDT [facility] Disclaimer This test was developed and its performance characteristics determined by the Immuno-Molecular Pathology Laboratory at the [facility]. It has not been cleared or [...] on the report. 09/22/2024 10:29 AM EDT [facility] Pathologist Signature Reviewed by: Lisandra Epstein MD 09/22/2024 10:29 AM EDT [facility] MRD Indicated Test Not Indicated 12/2024 10:29 AM EDT [facility] Bone Marrow Specimen from bone marrow obtained by aspiration / Unknown Non-blood Collection / Unknown 09/19/2024 7:29 AM EDT 09/19/2024 12:13 PM EDT us New Mckinney MD LAB FLOW CYTOMETRY ORDERABLES Final Result [facility] [address] [place] [address] * (ABNORMAL) CBC and differential (09/19/2024 7:29 AM EDT) WBC Count 2.70(L) 3.70 - 10.30 10*3/uL LAB HEMATOLOGY METHOD 09/19/2024 9:13 AM EDT [facility] RBC Count 1.86(L) 3.90 - 5.20 10*6/uL LAB HEMATOLOGY METHOD 09/19/2024 9:13 AM EDT [facility] HGB 7.1(L) 11.2 - 15.7 g/dL LAB HEMATOLOGY METHOD 09/19/2024 9:13 AM EDT [facility] HCT 21.5(L) 34.0 - 45.0 % LAB HEMATOLOGY METHOD 09/19/2024 9:13 AM EDT [facility] Platelet Count 14(LL) 155 - 369 10*3/uL LAB HEMATOLOGY METHOD 09/19/2024 9:13 AM EDT [facility] MCV 116(H) 79 - 98 fL LAB HEMATOLOGY METHOD 09/19/2024 9:13 AM EDT [facility] MCH 38.2(H) 26.0 - 32.0 pg LAB HEMATOLOGY METHOD 09/19/2024 9:13 AM EDT [facility] MCHC 33.0 30.7 - 35.5 g/dL LAB HEMATOLOGY METHOD 09/19/2024 9:13 AM EDT [facility] RDW 21.8(H) 11.5 - 14.5 % LAB HEMATOLOGY METHOD 09/19/2024 9:13 AM EDT [facility] MPV 13.5(H) 8.8 - 12.5 fL LAB HEMATOLOGY METHOD 09/19/2024 9:13 AM EDT [facility] nRBC 0.0 <=0.0 per 100 WBCs LAB HEMATOLOGY METHOD 09/19/2024 9:13 AM EDT [facility] Differential Type Automated LAB HEMATOLOGY METHOD 09/19/2024 9:13 AM EDT [facility] Neutrophils % 51 % LAB HEMATOLOGY METHOD 09/19/2024 9:13 AM EDT [facility] Lymphocytes % 41 % LAB HEMATOLOGY METHOD 09/19/2024 9:13 AM EDT [facility] Monocytes % 7 % LAB HEMATOLOGY METHOD 09/19/2024 9:13 AM EDT [facility] Eosinophils % 1 % LAB HEMATOLOGY METHOD 09/19/2024 9:13 AM EDT [facility] Basophils % 0 % LAB HEMATOLOGY METHOD 09/19/2024 9:13 AM EDT [facility] Immature Granulocytes % 0 % LAB HEMATOLOGY METHOD 09/19/2024 9:13 AM EDT [facility] Neutrophils Absolute 1.35(L) 1.60 - 6.10 10*3/uL LAB HEMATOLOGY METHOD 09/19/2024 9:13 AM EDT [facility] Lymphocytes Absolute 1.10(L) 1.20 - 3.90 10*3/uL LAB HEMATOLOGY METHOD 09/19/2024 9:13 AM EDT [facility] Monocytes Absolute 0.20(L) 0.30 - 0.90 10*3/uL LAB HEMATOLOGY METHOD 09/19/2024 9:13 AM EDT [facility] Eosinophils Absolute 0.03 0.00 - 0.50 10*3/uL LAB HEMATOLOGY METHOD 09/19/2024 9:13 AM EDT [facility] Basophils Absolute 0.01 0.00 - 0.10 10*3/uL LAB HEMATOLOGY METHOD 09/19/2024 9:13 AM EDT [facility] Immature Granulocytes Absolute 0.01 0.00 - 0.06 10*3/uL LAB HEMATOLOGY METHOD 09/19/2024 9:13 AM EDT [facility] Blood Blood sample taken from central line / Unknown (Port) Long-term Catheter / Unknown 09/19/2024 7:29 AM EDT 09/19/2024 8:08 AM EDT Narrative [facility] - 09/19/2024 9:13 AM EDT Therapeutic decision making should be based on absolute values, rather than percentages. us New Mckinney MD LAB BLOOD ORDERABLES Final Re sult [facility] [address] [place] [address] * Bone marrow exam (09/19/2024 7:29 AM EDT) Case Report Bone Marrow Case: [id number] Authorizing Provider: New Mckinney MD Collected: 09/19/2024 0729 Ordering Location: [facility] Hematology/BMT and Received: 09/19/2024 1216 Cellular Therapy Program Pathologist: Lisandra Epstein MD Specimens: A) - Bone Marrow Aspirate, right B) - Bone Marrow Biopsy, right C) - Peripheral Blood for Bone Marrow 4:30 PM EDT [facility] Cytogenetics Report, Addendum Chromosome Analysis Result Giemsa-banded metaphase cells from unstimulated bone marrow cultures showed a 46,XX[20] chromosome pattern. Interpretation Normal female chromosome analysis. No clonal abnormalities were detected at current resolution. Clinical correlation is recommended. 4:30 PM EDT [facility] Addendum electronically signed by Lisandra Epstein MD on 09/24/2024 at 1630 EDT Final Diagnosis PERIPHERAL BLOOD AND BONE MARROW, RIGHT POSTERIOR ILIAC CREST, (ASPIRATE SMEAR, AND CORE BIOPSY): - HYPOCELLULAR BONE MARROW WITH MARKEDLY DECREASED MEGAKARYOCYTES; NO SIGNIFICANT DYSPOIESIS OR INCREASE IN BLASTS. 4:30 PM EDT [facility] at 1453 EDT Clinical Information AML 09/14 4:30 PM EDT [facility] CBC and Differential PERIPHERAL BLOOD: 09/19/2024: [...] severe thrombocytopenia. Circulating blasts are not seen. 4:30 PM EDT [facility] Bone Marrow Differential BONE MARROW DIFFERENTIAL: 200 cells Normal Patient Neutrophils 15-50 34 Metamyelocytes 4-19 3 Myelocytes 1-18 10 Promyelocytes 1-8 1 Blasts 0-2 1 Monocytes 0-5 4 Erythroid 16-38 22 Lymphocytes 3-24 13 Eosinophils 0-6 8 Basophils 0-2 0 Plasma cells 0-4 4 Other 5 4:30 PM EDT [facility] Bone Marrow Aspirate and Biopsy The [...] granulomas are identified. Bone trabeculae are unremarkable. 5 4:30 PM EDT [facility] Special and Immunohistochemical Stains Special Stain: A1-1 Vazquez-Giemsa A1-2 Vazquez-Giemsa A1-3 Vazquez-Giemsa C1-1 Vazquez-Giemsa IHC: B1-2 CD34 All controls show appropriate reactivity. All immunohistochemis try, in situ hybridization, and histochemical tests were developed by and are performed at the [facility], [address] [place] [address]. All tests reported here, except those addressing [...] likelihood of false negativity on decalcified specimens. 5 4:30 PM EDT [facility] Flow Cytometry Interpretation MIXED MARROW ELEMENTS WITH NO EVIDENCE OF INCREASED BLASTS OR ABNORMAL LYMPHOID POPULATIONS ([id number]). 5 4:30 PM EDT [facility] CYTOGENETICS/MOLECULA R INTERPRETATION Correlation with cytogenetic/molec ular analysis is suggested. 5 4:30 PM EDT [facility] Gross Description B. RIGHT A single specimen is received in formalin labeled bone marrow biopsy right posterior iliac crest and consists of 2 piece(s) of red/white tissue measuring 2.1/0.3 cm in length 0.2 cm in diameter. The specimen is submitted in to Histology for decalcification and routine processing. Cold Time: <1m 4:30 PM EDT [facility] Note: A resident was involved in the service. I attest I examined the relevant preparations for the specimens and confirmed the diagnosis or interpretation. 5 4:30 PM EDT [facility] Bone Marrow Peripheral blood specimen / Unknown Non-blood Collection / Unknown 09/19/2024 7:29 AM EDT 09/19/2024 12:16 PM EDT Bone marrow specimen (specimen) Specimen from bone marrow obtained by biopsy / Unknown 09/19/2024 7:29 AM EDT 09/19/2024 12:16 PM EDT Bone marrow specimen (specimen) Peripheral blood specimen / Unknown 09/19/2024 7:29 AM EDT 09/19/2024 12:16 PM EDT us New Mckinney MD LAB PATHOLOGY ORDERABLES Edit ed Result - Final [facility] [address] [place] [address] documented in this encounter Visit Diagnoses Diagnosis 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
[2024-09-29 08:56] VITALS: BMI 21.8
--- OUTSIDE RECORDS SUMMARY | 2024-09-29 08:59 | XMS_ITS | Encounter Summary ---
Author Organization [facility] Address [address] [place] [address] Care Team Providers Care Bench Worker Apprentice Name Role Phone Jevon Vazquez MD Primary Care Provider [phone] Encounter Details Date Type Department Care Team ([facility] Contact Info) Description 09/15/2024 Telephone [facility] Hematology/BMT and Cellular Therapy Program [address] [phone] Zonia Hoffman, NATURAL GAS SHOTHOLE DRILLER 800 [facility] [address] [place] [phone] Social History Tobacco Use Types Packs/Day Years [...] Upcoming Encounters Date Type Department Care Team ([facility] Contact Info) Description 09/30/2024 9:00 AM EDT Clinical Support [facility] Hematology/BMT and Cellular Therapy Program [address] [place] [phone] 09/30/2024 9:30 AM EDT Office Visit [facility] Hematology/BMT and Cellular Therapy Program [address] [phone] Zonia Hoffman, NATURAL GAS SHOTHOLE DRILLER 800 [facility] [address] [place] [phone] 09/30/2024 11:00 AM EDT Appointment [facility] [address] [place] [address] 10/01/2024 8:30 AM EDT Appointment [facility] [address] [place] [address] 10/02/2024 8:00 AM EDT Appointment [facility] [address] [place] [address] 10/03/2024 8:00 AM EDT Appointment [facility] [address] [place] [address] 10/04/2024 8:00 AM EDT Appointment [facility] Infusion Clinic [address] [place] [address] 10/05/2024 8:00 AM EDT Appointment [facility] [address] [place] [address] 10/06/2024 8:00 AM EDT Appointment [facility] Infusion Clinic [address] [place] [address] 10/28/2024 11:00 AM EDT Clinical Support [facility] Hematology/BMT and Cellular Therapy Program [address] [place] [phone] 10/28/2024 11:30 AM EDT Office Visit [facility] Hematology/BMT and Cellular Therapy Program [address] [address] Zonia Hoffman, NATURAL GAS SHOTHOLE DRILLER 800 [facility] [address] [place] [phone] documented as of this encounter Visit Diagnoses Not on filedocumented in this encounter Additional Health Concerns Assessment Noted Time A fall risk assessment has been complete d for the patient 07/30/2024 8:29 AM EDT A Body Mass Index follow-up plan has been documented for the patient 05/28/2024 1:52 PM EST documented as of this encounter Care Teams Bench Worker Apprentice Relationship Specialty Start Date End Date Jevon Vazquez MD [address] [place] [address] #1 #1 [place] [id number] PCP - General 03/23/22 documented as of this encounter
--- OUTSIDE RECORDS SUMMARY | 2024-09-29 08:59 | XMS_ITS | Encounter Summary ---
Author Organization Healthcare Address [address] [place] [address] Care Team Providers Care Cone Chocolate Dipper Name Role Phone Jevon Vazquez MD Primary Care Provider [phone] Encounter Details Date Type Department Care Team ([facility] Contact Info) Description 09/19/2024 Orders Only [facility] Hematology/BMT and Cellular Therapy Program [address] [phone] 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, RN [facility] Social History [...] Department Care Team ([facility] Contact Info) Description 09/30/2024 9:00 AM EDT Clinical Support [facility] Hematology/BMT and Cellular Therapy Program [address] [phone] 09/30/2024 9:30 AM EDT Office Visit [facility] Hematology/BMT and Cellular Therapy Program [address] [phone] Zonia Hoffman, SKULL SPLITTER 800 [facility] [address] [place] [phone] 09/30/2024 11:00 AM EDT Appointment [facility] 1 [address] [place] [address] 10/01/2024 8:30 AM EDT Appointment [facility] 1 [address] [place] [address] 10/02/2024 8:00 AM EDT Appointment [facility] 1 [address] [place] [address] 10/03/2024 8:00 AM EDT Appointment [facility] 1 [address] [place] [address] 10/04/2024 8:00 AM EDT Appointment [facility] 1 [address] [place] [address] 10/05/2024 8:00 AM EDT Appointment [facility] 1 [address] [place] [address] 10/06/2024 8:00 AM EDT Appointment [facility] 1 [address] [place] [address] 10/28/2024 11:00 AM EDT Clinical Support [facility] Hematology/BMT and Cellular Therapy Program [address] [address] 10/28/2024 11:30 AM EDT Office Visit [facility] Hematology/BMT and Cellular Therapy Program [address] [phone] Zonia Hoffman, SKULL SPLITTER 800 [facility] [address] [place] [phone] documented as of this encounter Visit Diagnoses Not on filedocumented in this encounter Additional Health Concerns Assessment Noted Time A fall risk assessment has been complete d for the patient 09/19/2024 8:38 AM EDT A Body Mass Index follow-up plan has been documented for the patient 05/28/2024 1:52 PM EST documented as of this encounter Care Teams Cone Chocolate Dipper Relationship Specialty Start Date End Date Jevon Vazquez MD [address] [place] [address] #1 #1 [place] [address] PCP - General 03/23/22 documented as of this encounter
--- OUTSIDE RECORDS SUMMARY | 2024-09-29 08:59 | XMS_ITS | Encounter Summary ---
Author Organization Healthcare Address [address] [place] [address] Care Team Providers Care Service Assistant Name Role Phone Jevon Vazquez MD Primary Care Provider [phone] Encounter Details Date Type Department Care Team [...] Hematology/BMT and Cellular Therapy Program [address] [address] 09/30/2024 9:30 AM EDT Office Visit [facility] Hematology/BMT and Cellular Therapy Program [address] [phone] Zonia Hoffman, MASTER OF CEREMONIES 800 [facility] [address] [place] [phone] 09/30/2024 11:00 AM EDT Appointment [facility] 1 [address] [place] [address] 10/01/2024 8:30 AM EDT Appointment [facility] 1 [address] [place] [address] 10/02/2024 8:00 AM EDT Appointment [facility] 1 [address] [place] [address] 10/03/2024 8:00 AM EDT Appointment [facility] 1 [address] [place] [address] 10/04/2024 8:00 AM EDT Appointment [facility] 1 [address] [place] [address] 10/05/2024 8:00 AM EDT Appointment [facility] 1 [address] [place] [address] 10/06/2024 8:00 AM EDT Appointment [facility] 1 [address] [place] [address] 10/28/2024 11:00 AM EDT Clinical Support [facility] Hematology/BMT and Cellular Therapy Program [address] [address] 10/28/2024 11:30 AM EDT Office Visit [facility] Hematology/BMT and Cellular Therapy Program [address] [phone] Zonia Hoffman, MASTER OF CEREMONIES 800 [facility] [address] [place] [phone] documented as of this encounter Visit Diagnoses Not on filedocumented in this encounter Additional Health Concerns Assessment Noted Time A fall risk assessment has been complete d for the patient 07/30/2024 8:29 AM EDT A Body Mass Index follow-up plan has been documented for the patient 05/28/2024 1:52 PM EST documented as of this encounter Care Teams Service Assistant Relationship Specialty Start Date End Date Jevon Vazquez MD [address] [place] [address] #1 [address] [place] [address] PCP - General 03/23/22 documented as of this encounter
--- OUTSIDE RECORDS SUMMARY | 2024-09-29 08:59 | XMS_ITS | Encounter Summary ---
Author Organization Healthcare Address [address] [place] [address] Care Team Providers Care Cigarette Seller Name Role Phone Jevon Vazquez MD Primary [...] Hematology/BMT and Cellular Therapy Program [address] [phone] 09/30/2024 9:30 AM EDT Office Visit [facility] Hematology/BMT and Cellular Therapy Program [address] [phone] Zonia Hoffman, FITTER TYPE BAR AND SEGMENT 800 [facility] [address] [place] [phone] 09/30/2024 11:00 AM EDT Appointment [facility] 1 [address] [place] [address] 10/01/2024 8:30 AM EDT Appointment [facility] 1 [address] [place] [address] 10/02/2024 8:00 AM EDT Appointment [facility] 1 [address] [place] [address] 10/03/2024 8:00 AM EDT Appointment [facility] 1 [address] [place] [address] 10/04/2024 8:00 AM EDT Appointment [facility] 1 [address] [place] [address] 10/05/2024 8:00 AM EDT Appointment [facility] 1 [address] [place] [address] 10/06/2024 8:00 AM EDT Appointment [facility] 1 [address] [place] [address] 10/28/2024 11:00 AM EDT Clinical Support [facility] Hematology/BMT and Cellular Therapy Program [address] [address] 10/28/2024 11:30 AM EDT Office Visit [facility] Hematology/BMT and Cellular Therapy Program [address] [phone] Zonia Hoffman, FITTER TYPE BAR AND SEGMENT 800 [facility] [address] [place] [phone] documented as of this encounter Visit Diagnoses Not on filedocumented in this encounter Additional Health Concerns Assessment Noted Time A fall risk assessment has been complete d for the patient 07/30/2024 8:29 AM EDT A Body Mass Index follow-up plan has been documented for the patient 05/28/2024 1:52 PM EST documented as of this encounter Care Teams Cigarette Seller Relationship Specialty Start Date End Date Jevon Vazquez MD [address] [place] [address] #1 [address] [place] [address] PCP - General 03/23/22 documented as of this encounter
--- OUTSIDE RECORDS SUMMARY | 2024-09-29 08:59 | XMS_ITS | Encounter Summary ---
Author Organization Healthcare Address [address] [place] [address] Care Team Providers Care Cleaner And Polisher Name Role Phone Jeovn Vazquez MD Primary Care Provider [phone] Encounter Details Date Type Department Care Team [...] Hematology/BMT and Cellular Therapy Program [address] [address] 09/30/2024 9:30 AM EDT Office Visit [facility] Hematology/BMT and Cellular Therapy Program [address] [phone] Zonia Hoffman, APPARATUS OPERATOR 800 [facility] [address] [place] [phone] 09/30/2024 11:00 AM EDT Appointment [facility] 1 [address] [place] [address] 10/01/2024 8:30 AM EDT Appointment [facility] 1 [address] [place] [address] 10/02/2024 8:00 AM EDT Appointment [facility] 1 [address] [place] [address] 10/03/2024 8:00 AM EDT Appointment [facility] 1 [address] [place] [address] 10/04/2024 8:00 AM EDT Appointment [facility] 1 [address] [place] [address] 10/05/2024 8:00 AM EDT Appointment [facility] 1 [address] [place] [address] 10/06/2024 8:00 AM EDT Appointment [facility] 1 [address] [place] [address] 10/28/2024 11:00 AM EDT Clinical Support [facility] Hematology/BMT and Cellular Therapy Program [address] [address] 10/28/2024 11:30 AM EDT Office Visit [facility] Hematology/BMT and Cellular Therapy Program [address] [address] Zonia Hoffman, APPARATUS OPERATOR 800 [facility] [address] [place] [phone] documented as of this encounter Visit Diagnoses Not on filedocumented in this encounter Additional Health Concerns Assessment Noted Time A fall risk assessment has been complete d for the patient 09/19/2024 8:38 AM EDT A Body Mass Index follow-up plan has been documented for the patient 05/28/2024 1:52 PM EST documented as of this encounter Care Teams Cleaner And Polisher Relationship Specialty Start Date End Date Jevon Vazquez MD [address] [place] [address] #1 [address] [place] [address] PCP - General 03/23/22 documented as of this encounter
--- OUTSIDE RECORDS SUMMARY | 2024-09-29 08:59 | XMS_ITS | Encounter Summary ---
Author Organization Healthcare Address [address] [place] [address] Care Team Providers Care Mandrel Cleaner Name Role Phone Jevon Vazquez MD Primary Care Provider [phone] Encounter Details Date Type Department Care Team [...] Hematology/BMT and Cellular Therapy Program [address] [address] 09/30/2024 9:30 AM EDT Office Visit [facility] Hematology/BMT and Cellular Therapy Program [address] [phone] Zonia Hoffman, EARLY CHILDHOOD COORDINATOR 800 [facility] [address] [place] [address] 09/30/2024 11:00 AM EDT Appointment [facility] 1 [address] [place] [address] 10/01/2024 8:30 AM EDT Appointment [facility] 1 [address] [place] [address] 10/02/2024 8:00 AM EDT Appointment [facility] 1 [address] [place] [address] 10/03/2024 8:00 AM EDT Appointment [facility] 1 [address] [place] [address] 10/04/2024 8:00 AM EDT Appointment [facility] 1 [address] [place] [address] 10/05/2024 8:00 AM EDT Appointment [facility] 1 [address] [place] [address] 10/06/2024 8:00 AM EDT Appointment [facility] 1 [address] [place] [address] 10/28/2024 11:00 AM EDT Clinical Support [facility] Hematology/BMT and Cellular Therapy Program [address] [address] 10/28/2024 11:30 AM EDT Office Visit [facility] Hematology/BMT and Cellular Therapy Program [address] [address] Zonia Hoffman, EARLY CHILDHOOD COORDINATOR 800 [facility] [address] [place] [phone] documented as of this encounter Visit Diagnoses Not on filedocumented in this encounter Additional Health Concerns Assessment Noted Time A fall risk assessment has been complete d for the patient 07/30/2024 8:29 AM EDT A Body Mass Index follow-up plan has been documented for the patient 05/28/2024 1:52 PM EST documented as of this encounter Care Teams Mandrel Cleaner Relationship Specialty Start Date End Date Jevon Vazquez MD [address] [place] [address] #1 #1 [place] [address] PCP - General 03/23/22 documented as of this encounter
--- OUTSIDE RECORDS SUMMARY | 2024-09-29 08:59 | XMS_ITS | Encounter Summary ---
Author Organization Healthcare Address [address] [place] [address] Care Team Providers Care Electronic Repair Troubleshooter Name Role Phone Jevon Vazquez MD Primary Care Provider [phone] Encounter Details Date Type Department Care Team [...] Hematology/BMT and Cellular Therapy Program [address] [address] 09/30/2024 9:30 AM EDT Office Visit [facility] Hematology/BMT and Cellular Therapy Program [address] [address] Zonia Hoffman, DEVELOPMENT TECHNOLOGIST 800 [facility] [address] [place] [phone] 09/30/2024 11:00 AM EDT Appointment [facility] 1 [address] [place] [address] 10/01/2024 8:30 AM EDT Appointment [facility] 1 [address] [place] [address] 10/02/2024 8:00 AM EDT Appointment [facility] 1 [address] [place] [address] 10/03/2024 8:00 AM EDT Appointment [facility] 1 [address] [place] [address] 10/04/2024 8:00 AM EDT Appointment [facility] 1 [address] [place] [address] 10/05/2024 8:00 AM EDT Appointment [facility] 1 [address] [place] [address] 10/06/2024 8:00 AM EDT Appointment [facility] 1 [address] [place] [address] 10/28/2024 11:00 AM EDT Clinical Support [facility] Hematology/BMT and Cellular Therapy Program [address] [address] 10/28/2024 11:30 AM EDT Office Visit [facility] Hematology/BMT and Cellular Therapy Program [address] [address] Zonia Hoffman, DEVELOPMENT TECHNOLOGIST 800 [facility] [address] [place] [phone] documented as of this encounter Visit Diagnoses Not on filedocumented in this encounter Additional Health Concerns Assessment Noted Time A fall risk assessment has been complete d for the patient 07/30/2024 8:29 AM EDT A Body Mass Index follow-up plan has been documented for the patient 05/28/2024 1:52 PM EST documented as of this encounter Care Teams Electronic Repair Troubleshooter Relationship Specialty Start Date End Date Jevon Vazquez MD [address] [place] [address] #1 [address] [place] [address] PCP - General 03/23/22 documented as of this encounter
--- OUTSIDE RECORDS SUMMARY | 2024-09-29 08:59 | XMS_ITS | Encounter Summary ---
Author Organization Healthcare Address [address] [place] [address] Care Team Providers Care Cardroom Manager Name Role Phone Jevon Vazquez MD Primary Care Provider [phone] Encounter Details Date Type Department Care Team [...] Hematology/BMT and Cellular Therapy Program [address] [address] 09/30/2024 9:30 AM EDT Office Visit [facility] Hematology/BMT and Cellular Therapy Program [address] [address] Zonia Hoffman, CATH LAB TECHNOLOGIST 800 [facility] [address] [place] [address] 09/30/2024 11:00 AM EDT Appointment [facility] 1 [address] [place] [address] 10/01/2024 8:30 AM EDT Appointment [facility] 1 [address] [place] [address] 10/02/2024 8:00 AM EDT Appointment [facility] 1 [address] [place] [address] 10/03/2024 8:00 AM EDT Appointment [facility] 1 [address] [place] [address] 10/04/2024 8:00 AM EDT Appointment [facility] 1 [address] [place] [address] 10/05/2024 8:00 AM EDT Appointment [facility] 1 [address] [place] [address] 10/06/2024 8:00 AM EDT Appointment [facility] 1 [address] [place] [address] 10/28/2024 11:00 AM EDT Clinical Support [facility] Hematology/BMT and Cellular Therapy Program [address] [address] 10/28/2024 11:30 AM EDT Office Visit [facility] Hematology/BMT and Cellular Therapy Program [address] [address] Zonia Hoffman, CATH LAB TECHNOLOGIST 800 [facility] [address] [place] [phone] documented as of this encounter Visit Diagnoses Not on filedocumented in this encounter Additional Health Concerns Assessment Noted Time A fall risk assessment has been complete d for the patient 07/30/2024 8:29 AM EDT A Body Mass Index follow-up plan has been documented for the patient 05/28/2024 1:52 PM EST documented as of this encounter Care Teams Cardroom Manager Relationship Specialty Start Date End Date Jevon Vazquez MD [address] [place] [address] #1 [address] [place] [address] PCP - General 03/23/22 documented as of this encounter
--- OUTSIDE RECORDS SUMMARY | 2024-09-29 08:59 | XMS_ITS | Encounter Summary ---
Author Organization Healthcare Address [address] [place] [address] Care Team Providers Care Supervisor Rod Placing Name Role Phone Jevon Vazquez MD Primary Care Provider [phone] Encounter Details Date Type Department Care Team [...] Hematology/BMT and Cellular Therapy Program [address] [address] 09/30/2024 9:30 AM EDT Office Visit [facility] Hematology/BMT and Cellular Therapy Program [address] [address] Zonia Hoffman, CAREER ADVISOR 800 [facility] [address] [place] [phone] 09/30/2024 11:00 AM EDT Appointment [facility] 1 [address] [place] [address] 10/01/2024 8:30 AM EDT Appointment [facility] 1 [address] [place] [address] 10/02/2024 8:00 AM EDT Appointment [facility] 1 [address] [place] [address] 10/03/2024 8:00 AM EDT Appointment [facility] 1 [address] [place] [address] 10/04/2024 8:00 AM EDT Appointment [facility] 1 [address] [place] [address] 10/05/2024 8:00 AM EDT Appointment [facility] 1 [address] [place] [address] 10/06/2024 8:00 AM EDT Appointment [facility] 1 [address] [place] [address] 10/28/2024 11:00 AM EDT Clinical Support [facility] Hematology/BMT and Cellular Therapy Program [address] [address] 10/28/2024 11:30 AM EDT Office Visit [facility] Hematology/BMT and Cellular Therapy Program [address] [address] Zonia Hoffman, CAREER ADVISOR 800 [facility] [address] [place] [phone] documented as of this encounter Visit Diagnoses Not on filedocumented in this encounter Additional Health Concerns Assessment Noted Time A fall risk assessment has been complete d for the patient 07/30/2024 8:29 AM EDT A Body Mass Index follow-up plan has been documented for the patient 05/28/2024 1:52 PM EST documented as of this encounter Care Teams Supervisor Rod Placing Relationship Specialty Start Date End Date Jevon Vazquez MD [address] [place] [address] #1 #[address] [place] [address] PCP - General 03/23/22 documented as of this encounter
--- OUTSIDE RECORDS SUMMARY | 2024-09-29 08:59 | XMS_ITS | Clinical Summary ---
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 01/11/2023 Family History Medical History Relation [...] series) 2025 Medical Devices Implanted Type Area Police Patrol Officer Device Identifier Shelf Expiration Date Model / Serial / Lot Mis Ply Scr 6.5x50mm - [id number] Implanted:Qty : 1 on 01/30/2023 by Ivan Bartholomew MD at [facility] Screw N/A: Spine Lumbar [employer] [id number] / / Mis Ply Scr 6.5x45mm - [id number] Implanted:Qty : 3 on 01/30/2023 by Ivan Bartholomew MD at [facility] Screw N/A: Spine Lumbar [employer] [id number] / / Reline Mas Reduction Screw 7.5x45 - [id number] Implanted:Qty : 2 on 01/30/2023 by Ivan Bartholomew MD at [facility] Screw N/A: Spine Lumbar [employer] [id number] / / Grft Dbm Vesuvius Putty 5cc - [id number] Implanted:Qty : 1 on 01/30/2023 by Ivan Bartholomew MD at [facility] [employer] [id number] 04/20/2025 [id number] P / [id number] / Putty I-Factor 5.0cc - [id number] Implanted:Qty : 1 on 01/30/2023 by Ivan Bartholomew MD at [facility] N/A: Spine Lumbar [employer] 03/15/2025 [id number] / / [id number] Modulus Xlw [id number] 10 Degree - [id number] Implanted:Qty : 1 on 01/30/2023 by Ivan Bartholomew MD at [facility] N/A: Spine Lumbar [employer] [id number] / / [id number] Modulus Xlw [id number] - [id number] Implanted:Qty : 1 on 01/30/2023 by Ivan Bartholomew MD at [facility] N/A: Spine Lumbar [employer] 09/28/2027 [id number] / / [id number] Reln Lock Scr 5.5mm Opn Tulip - [id number] Implanted:Qty : 6 on 01/30/2023 by Ivan Bartholomew MD at [facility] N/A: Spine Lumbar [employer] [id number] / / Reln Mas Ti Petar 5.5x70mm - [id number] Implanted:Qty : 2 on 01/30/2023 by Ivan Bartholomew MD at [facility] N/A: Spine Lumbar [employer] [id number] / / Procedures Procedure Name Priority Date/Time [...] Hgb A1C 6.0(H) 4.0 - 5.6 % [facility] Comment: Reference Ranges for [...] Glycohemoglobin Standardization program (NGSP) and [facility] Estimated Average Glucose 126(H) 68 - 114 mg/dL [facility] Whole Blood (Blood) 01/24/2023 2:32 PM EDT 01/24/2023 6:00 PM EDT us Ivan Bartholomew MD CHEMISTRY ORDERABLES Fin al Result [facility] [address] * (ABNORMAL) BASIC METABOLIC PANEL (BMP=EP1) (01/24/2023 2:32 PM EDT) Sodium 141 135 - 146 mmol/L [facility] Potassium 4.8 3.5 - 5.1 mmol/L [facility] Chloride 107 98 - 110 mmol/L [facility] CO2 24 22 - 29 mmol/L [facility] Anion Gap 10 5 - 13 mmol/L [facility] Comment:Anion gap calculatio n does not include potassium (K+) value. BUN 17 7 - 25 mg/dL [facility] Creatinine 1.20 0.50 - 1.20 mg/dL [facility] Glucose 125(H) 71 - 99 mg/dL [facility] Comment:Reference range (71- 99 mg/dL) refers only to fasting samples, and does not apply to non-fasting samples. eGFR CKD-EPI 2020 48 See Note [facility] Comment: eGFR calculated with 2020 CKD-EPI equation using creatinine, patient's age and gender. Other factors, especially muscle mass, may affect accuracy and need to be considered. Patient values should be interpreted as a trend. The reference interval is >60 mL/min/1.73m2. Calcium 10.3 8.5 - 10.5 mg/dL [facility] BUN/Creatinine Ratio 14 [facility] Serum 01/24/2023 2:32 PM EDT 01/24/2023 5:54 PM EDT us Lexi SUAREZ CHEMISTRY ORDERABLES Final Resu lt [facility] [address] from Last 3 Months or Most Recently Relevant to Health Maintenance Insurance MEDICARE PART A [facility] [address] [address] [place] [address] ANTH Advance Directives For more information, please contact: [phone] * Full Code (Latest Code Status on File) Date Activated Date Inactivated Comments 01/30/2023 9:13 AM No automated chest compression devices for [facility] Patients Care Teams Lard Mixer Relationship Specialty Start Date End Date David Vazquez [address] [place] [id number] PCP - General 01/24/23
--- OUTSIDE RECORDS SUMMARY | 2024-09-29 08:59 | XMS_ITS ---
Author Organization [facility] Address [address] [place] [address] Care Team Providers Care Vp Of Customer Experience Strategy Name Role Phone Jevon Vazquez MD Primary Care Provider [phone] Active Problems Problem Noted Date Diagnosed Date [...]
--- OUTSIDE RECORDS SUMMARY | 2024-09-29 08:59 | XMS_ITS | Encounter Summary ---
Author Organization Healthcare Address [address] [place] [address] Care Team Providers Care Cell Pourer Name Role Phone Jevon Vazquez MD Primary Care Provider [phone] Encounter Details Date Type Department Care Team [...] Hematology/BMT and Cellular Therapy Program [address] [address] 09/30/2024 9:30 AM EDT Office Visit [facility] Hematology/BMT and Cellular Therapy Program [address] [phone] Zonia Hoffman, RETAIL BRAND AMBASSADOR 800 [facility] [address] [place] [phone] 09/30/2024 11:00 AM EDT Appointment [facility] [address] [place] [address] 10/01/2024 8:30 AM EDT Appointment [facility] [address] [place] [address] 10/02/2024 8:00 AM EDT Appointment [facility] [address] [place] [address] 10/03/2024 8:00 AM EDT Appointment [facility] [address] [place] [address] 10/04/2024 8:00 AM EDT Appointment [facility] [address] [place] [address] 10/05/2024 8:00 AM EDT Appointment [facility] [address] [place] [address] 10/06/2024 8:00 AM EDT Appointment [facility] [address] [place] [address] 10/28/2024 11:00 AM EDT Clinical Support [facility] Hematology/BMT and Cellular Therapy Program [address] [address] 10/28/2024 11:30 AM EDT Office Visit [facility] Hematology/BMT and Cellular Therapy Program [address] [address] Zonia Hoffman, RETAIL BRAND AMBASSADOR 800 [facility] [address] [place] [phone] documented as of this encounter Visit Diagnoses Not on filedocumented in this encounter Additional Health Concerns Assessment Noted Time A fall risk assessment has been complete d for the patient 07/30/2024 8:29 AM EDT A Body Mass Index follow-up plan has been documented for the patient 05/28/2024 1:52 PM EST documented as of this encounter Care Teams Cell Pourer Relationship Specialty Start Date End Date Jevon Vazquez MD [address] [place] [address] [address] [place] [address] PCP - General 03/23/22 documented as of this encounter
--- OUTSIDE RECORDS SUMMARY | 2024-09-29 08:59 | XMS_ITS | Encounter Summary ---
Author Organization Healthcare Address [address] [place] [address] Care Team Providers Care Operator Weapon Locating Radar Name Role Phone Jevon Vazquez MD Primary Care Provider [phone] Encounter Details Date Type Department Care Team [...] Hematology/BMT and Cellular Therapy Program [address] [address] 09/30/2024 9:30 AM EDT Office Visit [facility] Hematology/BMT and Cellular Therapy Program [address] [phone] Zonia Hoffman, CHUMMER 800 [facility] [address] [place] [address] 09/30/2024 11:00 AM EDT Appointment [facility] [address] [place] [address] 10/01/2024 8:30 AM EDT Appointment [facility] [address] [place] [address] 10/02/2024 8:00 AM EDT Appointment [facility] [address] [place] [address] 10/03/2024 8:00 AM EDT Appointment [facility] [address] [place] [address] 10/04/2024 8:00 AM EDT Appointment [facility] [address] [place] [address] 10/05/2024 8:00 AM EDT Appointment [facility] [address] [place] [address] 10/06/2024 8:00 AM EDT Appointment [facility] [address] [place] [address] 10/28/2024 11:00 AM EDT Clinical Support [facility] Hematology/BMT and Cellular Therapy Program [address] [address] 10/28/2024 11:30 AM EDT Office Visit [facility] Hematology/BMT and Cellular Therapy Program [address] [address] Zonia Hoffman, CHUMMER 800 [facility] [address] [place] [phone] documented as of this encounter Visit Diagnoses Not on filedocumented in this encounter Additional Health Concerns Assessment Noted Time A fall risk assessment has been complete d for the patient 07/30/2024 8:29 AM EDT A Body Mass Index follow-up plan has been documented for the patient 05/28/2024 1:52 PM EST documented as of this encounter Care Teams Operator Weapon Locating Radar Relationship Specialty Start Date End Date Jevon Vazquez MD [address] [place] [address] [address] [place] [address] PCP - General 03/23/22 documented as of this encounter
--- OUTSIDE RECORDS SUMMARY | 2024-09-29 08:59 | XMS_ITS | Encounter Summary ---
Author Organization Healthcare Address [address] [place] [address] Care Team Providers Care Industrial Property Appraiser Name Role Phone Jevon Vazquez MD Primary Care Provider [phone] Encounter Details Date Type Department Care Team ([facility] st Contact Info) Description 09/01/2024 Telephone [facility] Hematology/BMT and Cellular Therapy Program [address] [address] Zonia Hoffman, APRON OPERATOR [address] [facility] [address] [place] [phone] Social History Tobacco Use Types Packs/Day Years [...] told her to cancel. Please confirm Callback number:[phone] documented in this encounter Plan of Treatment Upcoming Encounters Date Type Department Care Team (Late st Contact Info) Description 09/30/2024 9:00 AM EDT Clinical Support [facility] Hematology/BMT and Cellular Therapy Program [address] [address] 09/30/2024 9:30 AM EDT Office Visit [facility] Hematology/BMT and Cellular Therapy Program [address] [address] Zonia Hoffman, APRON OPERATOR [address] [facility] [address] [place] [address] 09/30/2024 11:00 AM EDT Appointment [facility] [address] [place] [address] 10/01/2024 8:30 AM EDT Appointment [facility] [address] [place] [address] 10/02/2024 8:00 AM EDT Appointment [facility] [address] [place] [address] 10/03/2024 8:00 AM EDT Appointment [facility] [address] [place] [address] 10/04/2024 8:00 AM EDT Appointment [facility] [address] [place] [address] 10/05/2024 8:00 AM EDT Appointment [facility] [address] [place] [address] 10/06/2024 8:00 AM EDT Appointment [facility] 1 [address] [place] [address] 10/28/2024 11:00 AM EDT Clinical Support [facility] Hematology/BMT and Cellular Therapy Program [address] [place] [address] 10/28/2024 11:30 AM EDT Office Visit [facility] Hematology/BMT and Cellular Therapy Program [address] [place] [address] Zonia Hoffman, APRON OPERATOR [address] [facility] [address] [place] [phone] documented as of this encounter Visit Diagnoses Not on filedocumented in this encounter Additional Health Concerns Assessment Noted Time A fall risk assessment has been complete d for the patient 07/30/2024 8:29 AM EDT A Body Mass Index follow-up plan has been documented for the patient 05/28/2024 1:52 PM EST documented as of this encounter Care Teams Industrial Property Appraiser Relationship Specialty Start Date End Date Jevon Vazquez MD [address] [place] [address] [address] [place] [address] PCP - General 03/23/22 documented as of this encounter
--- OUTSIDE RECORDS SUMMARY | 2024-09-29 08:59 | XMS_ITS | Clinical Summary ---
Author Organization [facility] Address [address] 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) 09/19/2024 9:30 AM EDT Clinical Support [facility] [address] [facility], 2nd [place] [address] 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) 09/19/2024 7:30 AM EDT Clinical Support [facility] Hematology/BMT and Cellular Therapy Program [address] [phone] 09/19/2024 Telephone [facility] Hematology[facility]BMT and Cellular Therapy Program [address] [facility], [address] [place] [phone] Romana Richmond RN 09/19/2024 Orders Only [facility] Hematology/BMT and Cellular Therapy Program [address] [place] [phone] 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, RN 09/19/2024 Travel 09/15/2024 Telephone [facility] Hematology[facility]BMT and Cellular Therapy Program [address] [place] [phone] Zonia Hoffman, HAND WORKER 09/15/2024 Travel 09/14/2024 Travel 09/13/2024 Travel 09/12/2024 Travel 09/12/2024 Refill [facility] H[facility]ology[facility]BMT [facility] Cellular Therapy Program [address] [phone] New Mckinney MD 09/11/2024 Travel 09/10/2024 Travel 09/01/2024 Telephone [facility] Hematology/BMT and Cellular Therapy Program [address] [phone] Zonia Hoffman, HAND WORKER 08/31/2024 Travel 08/30/2024 Travel 08/18/2024 Telephone [facility]ology[facility]BMT and Cellular Therapy Program [address] [phone] Romana Gorman, HAND WORKER 08/17/2024 Travel 08/16/2024 Travel 08/15/2024 Travel 08/13/2024 Travel 07/30/2024 8:30 AM EDT Office Visit [facility] Hematology/BMT and Cellular Therapy Program [address] [place] [phone] Zonia Hoffman, HAND WORKER Pancytopenia (Primary Dx) 07/30/2024 8:00 AM EDT Clinical Support [facility] Hematology/BMT and Cellular Therapy Program [address] [place] [address] Pancytopenia 07/30/2024 Telephone [facility] Hematology/BMT and Cellular Therapy Program [address] [place] [address] Romana Richmond RN 07/30/2024 Refill [facility]ology[facility]BMT and Cellular Therapy Program [address] [place] [phone] Daxa Elliott RN 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); Immunosuppressed status (CMS/HCC) 07/30/2024 Travel 07/29/2024 Travel 07/28/2024 Travel 07/27/2024 Travel 07/26/2024 Travel 07/24/2024 Travel 07/23/2024 Travel 07/19/2024 Refill [facility] H[facility]ology[facility]BMT and Cellular Therapy Program [address] [phone] Zonia Hoffman, HAND WORKER 07/16/2024 9:00 AM EDT Office Visit [facility]ology/BMT and Cellular Therapy Program [address] [place] [phone] Zonia Hoffman, HAND WORKER Pancytopenia (Primary Dx); 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) 07/16/2024 8:30 AM EDT Clinical Support [facility]ology[facility]BMT and Cellular Therapy Program [address] [place] [phone] 07/16/2024 Travel 07/15/2024 Travel 07/15/2024 Telephone [facility]ology[facility]BMT and Cellular Therapy Program [address] [place] [phone] Zonia Hoffman, HAND WORKER 07/14/2024 Travel 07/13/2024 Travel 07/12/2024 Travel 07/11/2024 Travel 07/10/2024 Travel 07/09/2024 Travel 07/01/2024 Travel 06/30/2024 Travel 06/29/2024 Travel from Last 3 Months Immunizations Immunization [...] Upcoming Encounters Date Type Department Care Team ([facility] st Contact Info) Description 09/30/2024 9:00 AM EDT Clinical Support [facility] CC Hematology/BMT and Cellular Therapy Program [address] [phone] 09/30/2024 9:30 AM EDT Office Visit [facility] Hematology/BMT and Cellular Therapy Program [address] [phone] Zonia Hoffman, HAND WORKER 800 [facility] [address] [place] [phone] 09/30/2024 11:00 AM EDT Appointment [facility] 1 [address] [place] [address] 10/01/2024 8:30 AM EDT Appointment [facility] 1 [address] [place] [address] 10/02/2024 8:00 AM EDT Appointment [facility] 1 [address] [place] [address] 10/03/2024 8:00 AM EDT Appointment [facility] 1 [address] [place] [address] 10/04/2024 8:00 AM EDT Appointment [facility] 1 [address] [place] [address] 10/05/2024 8:00 AM EDT Appointment [facility] 1 [address] [place] [address] 10/06/2024 8:00 AM EDT Appointment [facility] 1 [address] [place] [address] 10/28/2024 11:00 AM EDT Clinical Support [facility] Hematology/BMT and Cellular Therapy Program [address] [place] [address] 10/28/2024 11:30 AM EDT Office Visit [facility] Hematology/BMT and Cellular Therapy Program [address] [phone] Zonia Hoffman, HAND WORKER 800 [facility] [address] [place] [phone] Health Maintenance Due Date Last Done Comments [...] UKY-Zoster Vaccines (1 of 2) 05/16/2023 03/21/2023 [id number] Vaccine (4 - season) 2023 02/18/2021, 07/10/2020, [...] this topic Medical Devices Implanted Type Area Mechanical Design Engineer Device Identifier Shelf Expiration Date Model / Serial / Lot Port Clearvue Power 8fr - [id number] Implanted:Qty: 1 on 01/21/2024 by Ness Sargent MD at [facility] Peripherial Vascular-[id number] / / Procedures Procedure Name Priority Date/Time [...] to surronding structures. Alternatives discussed: Delayed treatment [place] protocol: Procedure explained and questions answered to [...] LAB HEMATOLOGY METHOD 09/19/2024 10:19 AM EDT [facility] Blood Blood sample taken from central line / Unknown (Port) Long-term Catheter / Unknown 09/19/2024 10:04 AM EDT 09/19/2024 10:18 AM EDT New Mckinney MD LAB BLOOD ORDERABLES Final Re sult [facility] [address] [place] [address] * Transfuse platelets, Irradiated (09/19/2024 10:02 AM EDT) us Lexi Castillonell RODDY BLOOD TRANSFUSION ORDERABL ES Final Result * Prepare Leukocyte Reduced Platelets (09/19/2024 9:08 AM EDT) Product Code [id number] CH BLOO D BANK Dispense Status Transfused BLOOD BANK Blood Expiration Date [id number] BLOOD BANK Unit Number [id number] CH B LOOD BANK Product Blood Type 6200 CH BLOOD BANK Blood Type A+ CH BLOOD BANK us Provider Not In System BLOOD BANK PRODUCT ORD ERABLES Final Result Performing Organization Address [facility] Co de Phone Number BLOOD BANK [address] [place] [address], * Chromosome Karyotype, Oncology (09/19/2024 7:29 AM EDT) Specimen Type Bone Marrow 09/24/2024 2:37 PM EDT [facility] Clinical Indication Myelodysplastic Syndrome 09/24/2024 2:37 PM EDT [facility] Specimen Adequacy Adequate 025 2:37 PM EDT [facility] Chromosome Analysis Result Giemsa-banded metaphase cells from unstimulated bone marrow cultures showed a 46,XX[20] chromosome pattern. 09/24/2024 2:37 PM EDT [facility] Interpretation Normal female chromosome analysis. No clonal abnormalities were detected at current resolution. Clinical correlation is recommended. # cells counted = 20 # cells analyzed = 20 # cells karyotyped = 2 Band resolution: 450-525 09/24/2024 2:37 PM EDT [facility] Pathologist Signature Reviewed by: Corey Tejada 09/24/2024 2:37 PM EDT [facility] Bone Marrow Non-blood Collection / Unknown 09/19/2024 7:29 AM EDT 09/19/2024 12:35 PM EDT us New Mckinney MD LAB CYTOGENETICS ORDERABLES F inal Result [facility] [address] [place] [address] * Leukemia/Lymphoma - Immunophenotyping by Flow Cytometry [...] Immuno-Molecular Pathology Laboratory at the [facility]. It has not been cleared or [...] on the report. 09/22/2024 10:29 AM EDT [facility] Pathologist Signature Reviewed by: Lisandra Epstein MD 09/22/2024 10:29 AM EDT [facility] MRD Indicated Test Not Indicated 12/2024 10:29 AM EDT [facility] Bone Marrow Specimen from bone marrow obtained by aspiration / Unknown Non-blood Collection / Unknown 09/19/2024 7:29 AM EDT 09/19/2024 12:13 PM EDT us New Mckinney MD LAB FLOW CYTOMETRY ORDERABLES Final Result [facility] [address] [place] [address] * (ABNORMAL) CBC and differential (09/19/2024 7:29 AM EDT) Only the most recent of3 resultswithin the time period is included. WBC Count 2.70(L) 3.70 - 10.30 10*3/uL LAB HEMATOLOGY METHOD 09/19/2024 9:13 AM EDT [facility] RBC Count 1.86(L) 3.90 - 5.20 10*6/uL LAB HEMATOLOGY METHOD 09/19/2024 9:13 AM EDT [facility] HGB 7.1(L) 11.2 - 15.7 g/dL LAB HEMATOLOGY METHOD 09/19/2024 9:13 AM EDT [facility] HCT 21.5(L) 34.0 - 45.0 % LAB HEMATOLOGY METHOD 09/19/2024 9:13 AM EDT [facility] Platelet Count 14(LL) 155 - 369 10*3/uL LAB HEMATOLOGY METHOD 09/19/2024 9:13 AM EDT [facility] MCV 116(H) 79 - 98 fL LAB HEMATOLOGY METHOD 09/19/2024 9:13 AM EDT [facility] MCH 38.2(H) 26.0 - 32.0 pg LAB HEMATOLOGY METHOD 09/19/2024 9:13 AM EDT [facility] MCHC 33.0 30.7 - 35.5 g/dL LAB HEMATOLOGY METHOD 09/19/2024 9:13 AM EDT [facility] RDW 21.8(H) 11.5 - 14.5 % LAB HEMATOLOGY METHOD 09/19/2024 9:13 AM EDT [facility] MPV 13.5(H) 8.8 - 12.5 fL LAB HEMATOLOGY METHOD 09/19/2024 9:13 AM EDT [facility] nRBC 0.0 <=0.0 per 100 WBCs LAB HEMATOLOGY METHOD 09/19/2024 9:13 AM EDT [facility] Differential Type Automated LAB HEMATOLOGY METHOD 09/19/2024 9:13 AM EDT [facility] Neutrophils % 51 % LAB HEMATOLOGY METHOD 09/19/2024 9:13 AM EDT [facility] Lymphocytes % 41 % LAB HEMATOLOGY METHOD 09/19/2024 9:13 AM EDT [facility] Monocytes % 7 % LAB HEMATOLOGY METHOD 09/19/2024 9:13 AM EDT [facility] Eosinophils % 1 % LAB HEMATOLOGY METHOD 09/19/2024 9:13 AM EDT [facility] Basophils % 0 % LAB HEMATOLOGY METHOD 09/19/2024 9:13 AM EDT [facility] Immature Granulocytes % 0 % LAB [facility]Y [facility] Neutrophils Absolute 1.35(L) 1.60 - 6.10 10*3/uL LAB HEMATOLOGY METHOD 09/19/2024 9:13 AM EDT [facility] Lymphocytes Absolute 1.10(L) 1.20 - 3.90 10*3/uL LAB HEMATOLOGY METHOD 09/19[facility]2024 [facility] Monocytes Absolute 0.20(L) 0.30 - 0.90 10*3/uL LAB HEMATOLOGY METHOD 09/19[facility]2024 [facility] Eosinophils Absolute 0.03 0.00 - 0.50 10*3/uL LAB HEMATOLOGY METHOD 09/19/2024 9:13 AM EDT [facility] Basophils Absolute 0.01 0.00 - 0.10 10*3/uL LAB HEMATOLOGY METHOD 09/19/2024 9:13 AM EDT [facility] Immature Granulocytes Absolute 0.01 0.00 - 0.06 10*3/uL LAB HEMATOLOGY METHOD 09/19/2024 9:13 AM EDT [facility] Blood Blood sample taken from central line / Unknown (Port) Long-term Catheter / Unknown 09/19/2024 7:29 AM EDT 09/19/2024 8:08 AM EDT Narrative [facility] - 09/19/2024 9:13 AM EDT Therapeutic decision making should be based on absolute values, rather than percentages. New Mckinney MD LAB BLOOD ORDERABLES Final Re sult [facility] [address] [place] [address] * Bone marrow exam (09/19/2024 7:29 AM EDT) Case Report Bone Marrow Case: [id number] Authorizing Provider: New Mckinney MD Collected: 09/19/2024728 Ordering Location: [facility] Hematology/BMT and Received: 09/19/2024 1216 Cellular Therapy Program Pathologist: Lisandra Epstein MD Specimens: A) - Bone Marrow Aspirate, right B) - Bone Marrow Biopsy, right C) - Peripheral Blood for Bone Marrow 4:30 PM EDT [facility] Cytogenetics Report, Addendum Chromosome Analysis Result Giemsa-banded metaphase cells from unstimulated bone marrow cultures showed a 46,XX[20] chromosome pattern. Interpretation Normal female chromosome analysis. No clonal abnormalities were detected at current resolution. Clinical correlation is recommended. 4:30 PM EDT [facility] Addendum electronically signed by Lisandra Epstein MD on 09/24/2024 at 1630 EDT Final Diagnosis PERIPHERAL BLOOD AND BONE MARROW, RIGHT POSTERIOR ILIAC CREST, (ASPIRATE SMEAR, AND CORE BIOPSY): - HYPOCELLULAR BONE MARROW WITH MARKEDLY DECREASED MEGAKARYOCYTES; NO SIGNIFICANT DYSPOIESIS OR INCREASE IN BLASTS. 4:30 PM EDT [facility] at 1453 EDT Clinical Information AML 09/14 5 4:30 PM EDT [facility] CBC and Differential PERIPHERAL BLOOD: [...] blasts are not seen. 4:30 PM EDT [facility] Bone Marrow Differential BONE MARROW DIFFERENTIAL: 200 cells Normal Patient Neutrophils 15-50 34 Metamyelocytes 4-19 3 Myelocytes 1-18 10 Promyelocytes 1-8 1 Blasts 0-2 1 Monocytes 0-5 4 Erythroid 16-38 22 Lymphocytes 3-24 13 Eosinophils 0-6 8 Basophils 0-2 0 Plasma cells 0-4 4 Other 4:30 PM EDT [facility] Bone Marrow Aspirate and Biopsy [...] Bone trabeculae are unremarkable. 4:30 PM EDT [facility] Special and Immunohistochemical Stains Special Stain: A1-1 Vazquez-Giemsa A1-2 Vazquez-Giemsa A1-3 Vazquez-Giemsa C1-1 Vazquez-Giemsa IHC: B1-2 CD34 All controls show appropriate reactivity. All immunohistochemis try, in situ hybridization, and histochemical tests were developed by and are performed at the [facility], [address] [place] [address]. All tests reported here, except those addressing [...] negativity on decalcified specimens. 4:30 PM EDT [facility] Flow Cytometry Interpretation MIXED MARROW ELEMENTS WITH NO EVIDENCE OF INCREASED BLASTS OR ABNORMAL LYMPHOID POPULATIONS ([id number]). 4:30 PM EDT [facility] CYTOGENETICS/MOLECULA R INTERPRETATION Correlation with cytogenetic/molec ular analysis is suggested. 4:30 PM EDT [facility] Gross Description B. RIGHT A single specimen is received in formalin labeled bone marrow biopsy right posterior iliac crest and consists of 2 piece(s) of red/white tissue measuring 2.1/0.3 cm in length 0.2 cm in diameter. The specimen is submitted in to Histology for decalcification and routine processing. Cold Time: <1m 4:30 PM EDT [facility] Note: A resident was involved in the service. I attest I examined the relevant preparations for the specimens and confirmed the diagnosis or interpretation. 4:30 PM EDT [facility] Bone Marrow Peripheral blood specimen [...] PATHOLOGY ORDERABLES Edit ed Result - Final [facility] [address] [place] [address] * (ABNORMAL) Comprehensive Metabolic Panel, Plasma (07/30/2024 8:14 AM EDT) Only the most recent of2 resultswithin the time period is included. Glucose, Plasma 142(H) 74 - 99 mg/dL 07/30/2024 8:56 AM EDT [facility] BUN, Plasma 24(H) 8 - 23 mg/dL 07/30/2024 8:56 AM EDT [facility] Creatinine, Plasma 1.06 0.60 - 1.10 mg/dL 07/30/2024 8:56 AM EDT [facility] BUN/Creatinine Ratio 23 07/30/2024 8:56 AM EDT [facility] Sodium, Plasma 140 136 - 145 mmol/L 07/30/2024 8:56 AM EDT [facility] Potassium, Plasma 4.1 3.6 - 4.9 mmol/L 07/30/2024 8:56 AM EDT [facility] Chloride, Plasma 107 97 - 107 mmol/L 07/30/2024 8:56 AM EDT [facility] CO2, Plasma 23 22 - 29 mmol/L 07/30/2024 8:56 AM EDT [facility] Anion Gap 10 6 - 16 mmol/L 07/30/2024 8:56 AM EDT [facility] Total Calcium, Plasma 9.9 8.9 - 10.2 mg/dL 07/30/2024 8:56 AM EDT [facility] Total Protein 6.1(L) 6.3 - 7.9 g/dL 07/30/2024 8:56 AM EDT [facility] Albumin, Plasma 3.7 3.5 - 5.2 g/dL 07/30/2024 8:56 AM EDT [facility] AST, Plasma 30 10 - 35 U/L 07/30/2024 8:56 AM EDT [facility] ALT, Plasma 11 10 - 35 U/L 07/30/2024 8:56 AM EDT [facility] Alkaline Phosphatase, Plasma 35(L) 46 - 142 U/L 07/30/2024 8:56 AM EDT [facility] Total Bilirubin, Plasma 0.3 0.2 - 1.1 mg/dL 07/30/2024 8:56 AM EDT [facility] eGFRcr 55.6 mL/min/1.7 3m*2 07/30/2024 8:56 AM EDT [facility] Comment:Reported eGFRcr in m L/min/1.73m2 is based the CKD-EPI 2020 equation that does not use a race coefficient. Blood Venous blood specimen / Unknown (Port) Long-term Catheter / Unknown 07/30/2024 8:14 AM EDT 07/30/2024 8:27 AM EDT us Zonia Hoffman APRN LAB BLOOD ORDERABLES Final Res ult [facility] [address] [place] [address] * Hepatitis C Antibody w/Reflex to HCV Quant PCR (01/07/2024 8:42 AM EDT) Hepatitis C Antibody Negative Negative 01/07/2024 10:13 AM EDT [facility] Blood Venous blood specimen / Unknown Venipuncture / Unknown 01/07/2024 8:42 AM EDT 01/07/2024 9:25 AM EDT us New Mckinney MD LAB BLOOD ORDERABLES Final Re sult [facility] [address] [place] [address] from Last 3 Months or Most Recently Relevant to Health Maintenance Insurance MEDICARE [place] Care Teams Waste Cotton Cleaner Relationship Specialty Start Date End Date Jevon Vazquez MD [address] [place] [address] #1 #1 [place] [phone] PCP - General 03/23/22
--- OUTSIDE RECORDS SUMMARY | 2024-09-29 08:59 | XMS_ITS | Encounter Summary ---
Author Organization Healthcare Address [address] [place] [address] Care Team Providers Care Crystal Machining Coordinator Name Role Phone Jevon Vazquez MD Primary Care Provider [phone] Encounter Details Date Type Department Care Team [...] Hematology/BMT and Cellular Therapy Program [address] [address] 09/30/2024 9:30 AM EDT Office Visit [facility] Hematology/BMT and Cellular Therapy Program [address] [phone] Zonia Hoffman, HOSIERY MATER 800 [facility] [address] [place] [phone] 09/30/2024 11:00 AM EDT Appointment [facility] 1 [address] [place] [address] 10/01/2024 8:30 AM EDT Appointment [facility] 1 [address] [place] [address] 10/02/2024 8:00 AM EDT Appointment [facility] 1 [address] [place] [address] 10/03/2024 8:00 AM EDT Appointment [facility] 1 [address] [place] [address] 10/04/2024 8:00 AM EDT Appointment [facility] 1 [address] [place] [address] 10/05/2024 8:00 AM EDT Appointment [facility] 1 [address] [place] [address] 10/06/2024 8:00 AM EDT Appointment [facility] 1 [address] [place] [address] 10/28/2024 11:00 AM EDT Clinical Support [facility] Hematology/BMT and Cellular Therapy Program [address] [address] 10/28/2024 11:30 AM EDT Office Visit [facility] Hematology/BMT and Cellular Therapy Program [address] [phone] Zonia Hoffman, HOSIERY MATER 800 [facility] [address] [place] [phone] documented as of this encounter Visit Diagnoses Not on filedocumented in this encounter Additional Health Concerns Assessment Noted Time A fall risk assessment has been complete d for the patient 07/30/2024 8:29 AM EDT A Body Mass Index follow-up plan has been documented for the patient 05/28/2024 1:52 PM EST documented as of this encounter Care Teams Crystal Machining Coordinator Relationship Specialty Start Date End Date Jevon Vazquez MD [address] [place] [address] #1 #[address] [place] [phone] PCP - General 03/23/22 documented as of this encounter
--- OUTSIDE RECORDS SUMMARY | 2024-09-29 08:59 | XMS_ITS | Encounter Summary ---
Author Organization [facility] Address [address] [place] [address] Care Team Providers Care Algorithm Design Engineer Name Role Phone Jevon Vazquez MD Primary Care Provider [phone] Encounter Details Date Type Department Care Team ([facility] Contact Info) Description 09/19/2024 Telephone [facility] Hematology/BMT and Cellular Therapy Program [address] [place] [address] Romana Richmond RN [facility] Social History Tobacco Use [...] Hematology/BMT and Cellular Therapy Program [address] [place] [address] 09/30/2024 9:30 AM EDT Office Visit [facility] Hematology/BMT and Cellular Therapy Program [address] [place] [phone] Zonia Hoffman, BREAKFAST AND ROOM ATTENDANT 800 [facility] [address] [place] [phone] 09/30/2024 11:00 AM EDT Appointment [facility] 1 [address] [place] [address] 10/01/2024 8:30 AM EDT Appointment [facility] 1 [address] [place] [address] 10/02/2024 8:00 AM EDT Appointment [facility] 1 [address] [place] [address] 10/03/2024 8:00 AM EDT Appointment [facility] 1 [address] [place] [address] 10/04/2024 8:00 AM EDT Appointment [facility] 1 [address] [place] [address] 10/05/2024 8:00 AM EDT Appointment [facility] 1 [address] [place] [address] 10/06/2024 8:00 AM EDT Appointment [facility] 1 [address] [place] [address] 10/28/2024 11:00 AM EDT Clinical Support [facility] Hematology/BMT and Cellular Therapy Program [address] [place] [address] 10/28/2024 11:30 AM EDT Office Visit [facility] Hematology/BMT and Cellular Therapy Program [address] [place] [address] Zonia Hoffman, BREAKFAST AND ROOM ATTENDANT 800 [facility] [address] [place] [phone] documented as of this encounter Visit Diagnoses Not on filedocumented in this encounter Additional Health Concerns Assessment Noted Time A fall risk assessment has been complete d for the patient 09/19/2024 8:38 AM EDT A Body Mass Index follow-up plan has been documented for the patient 05/28/2024 1:52 PM EST documented as of this encounter Care Teams Algorithm Design Engineer Relationship Specialty Start Date End Date Jevon Vazquez MD [address] [place] [address] #1 #1 [place] [phone] PCP - General 03/23/22 documented as of this encounter
--- OUTSIDE RECORDS SUMMARY | 2024-09-29 08:59 | XMS_ITS | Encounter Summary ---
Author Organization Healthcare Address [address] [place] [address] Care Team Providers Care Lineworker Name Role Phone Jevon Vazquez MD Primary Care Provider [phone] Encounter Details Date Type Department Care Team [...] Hematology/BMT and Cellular Therapy Program [address] [address] 09/30/2024 9:30 AM EDT Office Visit [facility] Hematology/BMT and Cellular Therapy Program [address] [address] Zonia Hoffman, INSTALLATION SUPERVISOR 800 [facility] [address] [place] [phone] 09/30/2024 11:00 AM EDT Appointment [facility] 1 [address] [place] [address] 10/01/2024 8:30 AM EDT Appointment [facility] 1 [address] [place] [address] 10/02/2024 8:00 AM EDT Appointment [facility] 1 [address] [place] [address] 10/03/2024 8:00 AM EDT Appointment [facility] 1 [address] [place] [address] 10/04/2024 8:00 AM EDT Appointment [facility] 1 [address] [place] [address] 10/05/2024 8:00 AM EDT Appointment [facility] 1 [address] [place] [address] 10/06/2024 8:00 AM EDT Appointment [facility] 1 [address] [place] [address] 10/28/2024 11:00 AM EDT Clinical Support [facility] Hematology/BMT and Cellular Therapy Program [address] [address] 10/28/2024 11:30 AM EDT Office Visit [facility] Hematology/BMT and Cellular Therapy Program [address] [address] Zonia Hoffman, INSTALLATION SUPERVISOR 800 [facility] [address] [place] [phone] documented as of this encounter Visit Diagnoses Not on filedocumented in this encounter Additional Health Concerns Assessment Noted Time A fall risk assessment has been complete d for the patient 07/30/2024 8:29 AM EDT A Body Mass Index follow-up plan has been documented for the patient 05/28/2024 1:52 PM EST documented as of this encounter Care Teams Lineworker Relationship Specialty Start Date End Date Jevon Vazquez MD [address] [place] [address] [address]1 [address] [place] [address] PCP - General 03/23/22 documented as of this encounter
--- OUTSIDE RECORDS SUMMARY | 2024-09-29 08:59 | XMS_ITS | Encounter Summary ---
Author Organization [facility] Address [address] [place] [address] Care Team Providers Care Patient Transport Orderly Name Role Phone Jevon Vazquez MD Primary Care Provider [phone] Reason for Visit * Reason Comments Med Refill Encounter Details Date Type Department Care Team ([facility] Contact Info) Description 09/12/2024 Refill [facility] Hematology/BMT and Cellular Therapy Program [address] [phone] New Mckinney MD 800 [facility] [address] [place] [phone] Social History Tobacco Use Types Packs/Day Years [...] Encounters Date Type Department Care Team ([facility] Contact Info) Description 09/30/2024 9:00 AM EDT Clinical Support [facility] Hematology/BMT and Cellular Therapy Program [address] [phone] 09/30/2024 9:30 AM EDT Office Visit [facility] Hematology/BMT and Cellular Therapy Program [address] [address] Zonia Hoffman, TEST ANALYST 800 [facility] [address] [place] [phone] 09/30/2024 11:00 AM EDT Appointment [facility] 1 [address] [place] [address] 10/01/2024 8:30 AM EDT Appointment [facility] 1 [address] [place] [address] 10/02/2024 8:00 AM EDT Appointment [facility] 1 [address] [place] [address] 10/03/2024 8:00 AM EDT Appointment [facility] 1 [address] [place] [address] 10/04/2024 8:00 AM EDT Appointment [facility] 1 [address] [place] [address] 10/05/2024 8:00 AM EDT Appointment [facility] 1 [address] [place] [address] 10/06/2024 8:00 AM EDT Appointment [facility] 1 [address] [place] [address] 10/28/2024 11:00 AM EDT Clinical Support [facility] Hematology/BMT and Cellular Therapy Program [address] [place] [address] 10/28/2024 11:30 AM EDT Office Visit [facility] Hematology/BMT and Cellular Therapy Program [address] [place] [address] Zonia Hoffman, TEST ANALYST 800 [facility] [address] [place] [phone] documented as of this encounter Visit Diagnoses Not on filedocumented in this encounter Additional Health Concerns Assessment Noted Time A fall risk assessment has been complete d for the patient 07/30/2024 8:29 AM EDT A Body Mass Index follow-up plan has been documented for the patient 05/28/2024 1:52 PM EST documented as of this encounter Care Teams Patient Transport Orderly Relationship Specialty Start Date End Date Jevon Vazquez MD [address] [place] [address] #1 #1 [place] [address] PCP - General 03/23/22 documented as of this encounter
--- OUTSIDE RECORDS SUMMARY | 2024-09-29 08:59 | XMS_ITS | Encounter Summary ---
Author Organization Healthcare Address [address] [place] [address] Care Team Providers Care Associate Professor Of Economics Name Role Phone Jevon Vazquez MD Primary Care Provider [phone] Encounter Details Date Type Department Care Team [...] Hematology/BMT and Cellular Therapy Program [address] [address] 09/30/2024 9:30 AM EDT Office Visit [facility] Hematology/BMT and Cellular Therapy Program [address] [address] Zonia Hoffman, SAP MANAGER 800 [facility] [address] [place] [address] 09/30/2024 11:00 AM EDT Appointment [facility] 1 [address] [place] [address] 10/01/2024 8:30 AM EDT Appointment [facility] 1 [address] [place] [address] 10/02/2024 8:00 AM EDT Appointment [facility] 1 [address] [place] [address] 10/03/2024 8:00 AM EDT Appointment [facility] 1 [address] [place] [address] 10/04/2024 8:00 AM EDT Appointment [facility] 1 [address] [place] [address] 10/05/2024 8:00 AM EDT Appointment [facility] 1 [address] [place] [address] 10/06/2024 8:00 AM EDT Appointment [facility] 1 [address] [place] [address] 10/28/2024 11:00 AM EDT Clinical Support [facility] Hematology/BMT and Cellular Therapy Program [address] [address] 10/28/2024 11:30 AM EDT Office Visit [facility] Hematology/BMT and Cellular Therapy Program [address] [address] Zonia Hoffman, SAP MANAGER 800 [facility] [address] [place] [phone] documented as of this encounter Visit Diagnoses Not on filedocumented in this encounter Additional Health Concerns Assessment Noted Time A fall risk assessment has been complete d for the patient 09/19/2024 8:38 AM EDT A Body Mass Index follow-up plan has been documented for the patient 05/28/2024 1:52 PM EST documented as of this encounter Care Teams Associate Professor Of Economics Relationship Specialty Start Date End Date Jevon Vazquez MD [address] [place] [address] #1 [address] [place] [address] PCP - General 03/23/22 documented as of this encounter
--- OUTSIDE RECORDS SUMMARY | 2024-09-29 08:59 | XMS_ITS | Encounter Summary ---
Author Organization Healthcare Address [address] [place] [address] Care Team Providers Care Systems Spec Name Role Phone Jevon Vazquez MD Primary Care Provider [phone] Encounter Details Date Type Department Care Team [...] Hematology/BMT and Cellular Therapy Program [address] [address] 09/30/2024 9:30 AM EDT Office Visit [facility] Hematology/BMT and Cellular Therapy Program [address] [address] Zonia Hoffman, FLIGHT ENGINEER HELICOPTER 800 [facility] [address] [place] [phone] 09/30/2024 11:00 AM EDT Appointment [facility] 1 [address] [place] [address] 10/01/2024 8:30 AM EDT Appointment [facility] 1 [address] [place] [address] 10/02/2024 8:00 AM EDT Appointment [facility] 1 [address] [place] [address] 10/03/2024 8:00 AM EDT Appointment [facility] 1 [address] [place] [address] 10/04/2024 8:00 AM EDT Appointment [facility] 1 [address] [place] [address] 10/05/2024 8:00 AM EDT Appointment [facility] 1 [address] [place] [address] 10/06/2024 8:00 AM EDT Appointment [facility] 1 [address] [place] [address] 10/28/2024 11:00 AM EDT Clinical Support [facility] Hematology/BMT and Cellular Therapy Program [address] [address] 10/28/2024 11:30 AM EDT Office Visit [facility] Hematology/BMT and Cellular Therapy Program [address] [address] Zonia Hoffman, FLIGHT ENGINEER HELICOPTER 800 [facility] [address] [place] [phone] documented as of this encounter Visit Diagnoses Not on filedocumented in this encounter Additional Health Concerns Assessment Noted Time A fall risk assessment has been complete d for the patient 07/30/2024 8:29 AM EDT A Body Mass Index follow-up plan has been documented for the patient 05/28/2024 1:52 PM EST documented as of this encounter Care Teams Systems Spec Relationship Specialty Start Date End Date Jevon Vazquez MD [address] [place] [address] #1 [address] [place] [address] PCP - General 03/23/22 documented as of this encounter
--- OUTSIDE RECORDS SUMMARY | 2024-09-29 08:59 | XMS_ITS | Encounter Summary ---
Author Organization Healthcare Address [address] [place] [address] Care Team Providers Care Field Support Engineer Name Role Phone Jevon Vazquez MD Primary Care Provider [phone] Encounter Details Date Type Department Care Team ([facility] st Contact Info) Description 08/18/2024 Telephone [facility] Hematology/BMT and Cellular Therapy Program [address] [address] Romana Gorman, NECKTIE MAKER 800 [facility] [address] [place] [address] Social History Tobacco Use Types Packs/Day Years [...] to her levels being low Callback number: [phone] documented in this encounter Plan of Treatment Upcoming Encounters Date Type Department Care Team ([facility] st Contact Info) Description 09/30/2024 9:00 AM EDT Clinical Support [facility] Hematology/BMT and Cellular Therapy Program [address] [address] 09/30/2024 9:30 AM EDT Office Visit [facility] Hematology/BMT and Cellular Therapy Program [address] [address] Zonia Hoffman, NECKTIE MAKER 800 [facility] [address] [place] [phone] 09/30/2024 11:00 AM EDT Appointment [facility] 1 [address] [place] [address] 10/01/2024 8:30 AM EDT Appointment [facility] 1 [address] [place] [address] 10/02/2024 8:00 AM EDT Appointment [facility] 1 [address] [place] [address] 10/03/2024 8:00 AM EDT Appointment [facility] 1 [address] [place] [address] 10/04/2024 8:00 AM EDT Appointment [facility] 1 [address] [place] [address] 10/05/2024 8:00 AM EDT Appointment [facility] 1 [address] [place] [address] 10/06/2024 8:00 AM EDT Appointment [facility] 1 [address] [place] [address] 10/28/2024 11:00 AM EDT Clinical Support [facility] Hematology/BMT and Cellular Therapy Program [address] [place] [address] 10/28/2024 11:30 AM EDT Office Visit [facility] Hematology/BMT and Cellular Therapy Program [address] [place] [address] Zonia Hoffman, NECKTIE MAKER 800 [facility] [address] [place] [phone] documented as of this encounter Visit Diagnoses Not on filedocumented in this encounter Additional Health Concerns Assessment Noted Time A fall risk assessment has been complete d for the patient 07/30/2024 8:29 AM EDT A Body Mass Index follow-up plan has been documented for the patient 05/28/2024 1:52 PM EST documented as of this encounter Care Teams Field Support Engineer Relationship Specialty Start Date End Date Jevon Vazquez MD [address] [place] [address] #1 [address]1 [place] [address] PCP - General 03/23/22 documented as of this encounter
--- OUTSIDE RECORDS SUMMARY | 2024-09-29 08:59 | XMS_ITS | Clinical Summary ---
Author Organization [facility] Address [address] [place] [address] Phone Care Team Providers Care Truck Greaser Name Role Phone Jevon Vazquez MD Primary Care Provider [phone] Allergies Active Allergy Reactions Criticality Noted Date [...] L4-5 LAMINECTOMY; Surgeon: Ivan Bartholomew MD; Location: [facility] MAIN OR; Service: Spine Medical History Medical [...] % 11/14/2022 2:57 PM EDT [facility] Est. Avg Glucose 148 mg/dL 11/14/2022 2:57 PM EDT [facility] Blood VENOUS BLOOD / Unknown Venipuncture / Unknown 11/11/2022 3:46 PM EDT 11/11/2022 3:55 PM EDT Narrative [facility] - 11/14/2022 2:57 PM EDT REFERENCE RANGE: Normal: 4.0-5.6% Pre-diabetes: 5.7-6.4% Provisional diagnosis of diabetes: >6.4% Hgb F>10% and anything which shortens red cell survival, such as hemolytic anemia, or unstable hemoglobin variants such as HbSS, HbSC, or HbCC, will lower the HbA1c value associated with a given level of glycemic control. Lexi Maloney DO CHEMISTRY ORDERABLES Final R esult [facility] [address] [facility] , [place] [address] * DX BONE DENSITY AXIAL SKELETON (07/25/2022 9:14 AM EDT) Anatomical Region Laterality Modality Dexa Scan 07/25/2022 Narrative 07/25/2022 3:45 PM EDT Indication: The patient is a female age 65 or older who requires a bone density assessment. Study was performed on BioSET 5. Bone Density: Region BMD T-score Z-score [...] Payer (Ef fective 2016-Present) Name:Ashly Hernández Member ID:[id number] Relation to Subscriber:Self Name:Ashly Hernández Subscriber ID:[id number] Payer ID:Not on file Group ID:Not on file Type:Not on file Address: [address] MEDICARE SUPPLEMENT MEDICARE [place] PART A & B MEDICARE [place] PART A AND B Member Subscriber Plan / Payer (Ef fective 2016-Present) Name:Ashly Hernández Member ID:[id number] Relation to Subscriber:Self Name:Ashly Hernández Subscriber ID:[id number] Payer ID:Not on file Group ID:Not on file Type:Not on file Address: [address] MEDICARE SUPPLEMENT [employer] MEDICARE [place] [address] ANTH MEDICARE SUPPLEMENT Advance Directives For more information, please contact: [phone] * Full Code (Latest Code Status on File) Date Activated Date Inactivated Comments 11/14/2022 6:53 PM 11/16/2022 7:37 PM * Full Code Date Activated Date Inactivated Comments 11/12/2022 5:17 AM 11/14/2022 6:47 PM Care Teams Truck Greaser Relationship Specialty Start Date End Date Jevon Vazquez MD [address] [place] [address] PCP - General Family Medicine 11/10/22
--- OUTSIDE RECORDS SUMMARY | 2024-09-29 08:59 | XMS_ITS | Encounter Summary ---
Author Organization Healthcare Address [address] [place] [address] Care Team Providers Care Ethylene Oxide Panelboard Operator Name Role Phone Jevon Vazquez MD Primary Care Provider [phone] Encounter Details Date Type Department Care Team [...] Cellular Therapy Program [address] [address] 09/30/2024 9:30 AM EDT Office Visit [facility] Hematology/BMT and Cellular Therapy Program [address] [address] Zonia Hoffman, BLEACH ANALYST 800 [facility] [address] [place] [address] 09/30/2024 11:00 AM EDT Appointment [facility] 1 [address] [place] [address] 10/01/2024 8:30 AM EDT Appointment [facility] 1 [address] [place] [address] 10/02/2024 8:00 AM EDT Appointment [facility] 1 [address] [place] [address] 10/03/2024 8:00 AM EDT Appointment [facility] 1 [address] [place] [address] 10/04/2024 8:00 AM EDT Appointment [facility] 1 [address] [place] [address] 10/05/2024 8:00 AM EDT Appointment [facility] 1 [address] [place] [address] 10/06/2024 8:00 AM EDT Appointment [facility] 1 [address] [place] [address] 10/28/2024 11:00 AM EDT Clinical Support [facility] Hematology/BMT and Cellular Therapy Program [address] [address] 10/28/2024 11:30 AM EDT Office Visit PAV Hematology/BMT and Cellular Therapy Program [address] [address] Zonia Hoffman, BLEACH ANALYST 800 [facility] [address] [place] [phone] documented as of this encounter Visit Diagnoses Not on filedocumented in this encounter Additional Health Concerns Assessment Noted Time A fall risk assessment has been complete d for the patient 09/19/2024 8:38 AM EDT A Body Mass Index follow-up plan has been documented for the patient 05/28/2024 1:52 PM EST documented as of this encounter Care Teams Ethylene Oxide Panelboard Operator Relationship Specialty Start Date End Date Jevon Vazquez MD [address] [place] [address] #1 [address] [place] [id number] PCP - General 03/23/22 documented as of this encounter
--- OUTSIDE RECORDS SUMMARY | 2024-09-29 08:59 | XMS_ITS | Encounter Summary ---
Author Organization [facility] Address [address] [place] [address] Care Team Providers Care Treatment Technician Name Role Phone Jevon Vazquez MD Primary Care Provider [phone] Reason for Visit * Reason Comments Med Refill Encounter Details Date Type Department Care Team ([facility] Contact Info) Description 01/30/2024 Refill [facility] Hematology/BMT and Cellular Therapy Program [address] [phone] New Mckinney MD [address] [facility] [address] [place] [phone] Social History Tobacco Use Types Packs/Day Years [...] Upcoming Encounters Date Type Department Care Team ([facility] Contact Info) Description 09/30/2024 9:00 AM EDT Clinical Support [facility] Hematology/BMT and Cellular Therapy Program [address] [place] [address] 09/30/2024 9:30 AM EDT Office Visit [facility] Hematology/BMT and Cellular Therapy Program [address] [address] Zonia Hoffman, OB/GYN NURSE 800 [facility] [address] [place] [phone] 09/30/2024 11:00 AM EDT Appointment [facility] 1 [address] [place] [address] 10/01/2024 8:30 AM EDT Appointment [facility] 1 [address] [place] [address] 10/02/2024 8:00 AM EDT Appointment [facility] 1 [address] [place] [address] 10/03/2024 8:00 AM EDT Appointment [facility] 1 [address] [place] [address] 10/04/2024 8:00 AM EDT Appointment [facility] 1 [address] [place] [address] 10/05/2024 8:00 AM EDT Appointment [facility] 1 [address] [place] [address] 10/06/2024 8:00 AM EDT Appointment [facility] Infusion Clinic 1 [address] [place] [address] 10/28/2024 11:00 AM EDT Clinical Support PAV Hematology/BMT and Cellular Therapy Program [address] [place] [address] 10/28/2024 11:30 AM EDT Office Visit [facility] Hematology/BMT and Cellular Therapy Program [address] [place] [address] Zonia Hoffman, OB/GYN NURSE [address] [facility] [address] [place] [phone] documented as of this encounter Visit Diagnoses Not on filedocumented in this encounter Additional Health Concerns Assessment Noted Time A fall risk assessment has been complete d for the patient 01/11/2024 9:16 AM EDT A Body Mass Index follow-up plan has been documented for the patient 01/21/2024 6:16 AM EDT documented as of this encounter Care Teams Treatment Technician Relationship Specialty Start Date End Date Jevon Vazquez MD [address] [place] [address] #1 #1 [place] [address] PCP - General 03/23/22 documented as of this encounter
--- OUTSIDE RECORDS SUMMARY | 2024-09-29 08:59 | XMS_ITS | Encounter Summary ---
Author Organization Healthcare Address [address] [place] [address] Care Team Providers Care Change Control Specialist Name Role Phone Jevon Vazquez MD Primary Care Provider [phone] Encounter Details Date Type Department Care Team [...] Hematology/BMT and Cellular Therapy Program [address] [address] 09/30/2024 9:30 AM EDT Office Visit [facility] Hematology/BMT and Cellular Therapy Program [address] [address] Zonia Hoffman, MEDICINE TECHNOLOGIST 800 [facility] [address] [place] [phone] 09/30/2024 11:00 AM EDT Appointment [facility] 1 [address] [place] [address] 10/01/2024 8:30 AM EDT Appointment [facility] 1 [address] [place] [address] 10/02/2024 8:00 AM EDT Appointment [facility] 1 [address] [place] [address] 10/03/2024 8:00 AM EDT Appointment [facility] 1 [address] [place] [address] 10/04/2024 8:00 AM EDT Appointment [facility] 1 [address] [place] [address] 10/05/2024 8:00 AM EDT Appointment [facility] 1 [address] [place] [address] 10/06/2024 8:00 AM EDT Appointment [facility] 1 [address] [place] [address] 10/28/2024 11:00 AM EDT Clinical Support [facility] Hematology/BMT and Cellular Therapy Program [address] [address] 10/28/2024 11:30 AM EDT Office Visit PAV Hematology/BMT and Cellular Therapy Program [address] [address] Zonia Hoffman, MEDICINE TECHNOLOGIST 800 [facility] [address] [place] [phone] documented as of this encounter Visit Diagnoses Not on filedocumented in this encounter Additional Health Concerns Assessment Noted Time A fall risk assessment has been complete d for the patient 07/30/2024 8:29 AM EDT A Body Mass Index follow-up plan has been documented for the patient 05/28/2024 1:52 PM EST documented as of this encounter Care Teams Change Control Specialist Relationship Specialty Start Date End Date Jevon Vazquez MD [address] [place] [address] #1 [address] [place] [address] PCP - General 03/23/22 documented as of this encounter
--- OUTSIDE RECORDS SUMMARY | 2024-09-29 09:00 | XMS_ITS | Encounter Summary ---
Author Organization Healthcare Address [address] [place] [address] Care Team Providers Care Kaiawhina Kohanga Reo Name Role Phone Jevon Vazquez MD Primary Care Provider [phone] Encounter Details Date Type Department Care Team (Latest Contact Info) Description 09/27/2024 Travel Social History Tobacco Use Types Packs/Day [...] Hematology/BMT and Cellular Therapy Program [address] [address] 09/30/2024 9:30 AM EDT Office Visit [facility] Hematology/BMT and Cellular Therapy Program [address] [address] Zonai Hoffman, CLIENT SERVICES ANALYST 800 [facility] [address] [place] [phone] 09/30/2024 11:00 AM EDT Appointment [facility] 1 [address] [place] [address] 10/01/2024 8:30 AM EDT Appointment [facility] 1 [address] [place] [address] 10/02/2024 8:00 AM EDT Appointment [facility] 1 [address] [place] [address] 10/03/2024 8:00 AM EDT Appointment [facility] 1 [address] [place] [address] 10/04/2024 8:00 AM EDT Appointment [facility] 1 [address] [place] [address] 10/05/2024 8:00 AM EDT Appointment [facility] 1 [address] [place] [address] 10/06/2024 8:00 AM EDT Appointment [facility] 1 [address] [place] [address] 10/28/2024 11:00 AM EDT Clinical Support [facility] Hematology/BMT and Cellular Therapy Program [address] [address] 10/28/2024 11:30 AM EDT Office Visit [facility] Hematology/BMT and Cellular Therapy Program [address] [address] Zonia Hoffman, CLIENT SERVICES ANALYST 800 [facility] [address] [place] [phone] documented as of this encounter Visit Diagnoses Not on filedocumented in this encounter Additional Health Concerns Assessment Noted Time A fall risk assessment has been complete d for the patient 09/19/2024 8:38 AM EDT A Body Mass Index follow-up plan has been documented for the patient 05/28/2024 1:52 PM EST documented as of this encounter Care Teams Kaiawhina Kohanga Reo Relationship Specialty Start Date End Date Jevon Vazquez MD [address] [place] [address] [address]1 [address] [place] [id number] PCP - General 03/23/22 documented as of this encounter
--- OUTSIDE RECORDS SUMMARY | 2024-09-29 09:00 | XMS_ITS | Encounter Summary ---
Author Organization Healthcare Address [address] [place] [address] Care Team Providers Care Assistant Field Hockey Coach Name Role Phone Jevon Vazquez MD Primary Care Provider [phone] Encounter Details Date Type Department Care Team (Latest Contact Info) Description 09/26/2024 Travel Social History Tobacco Use Types Packs/Day [...] Hematology/BMT and Cellular Therapy Program [address] [address] 09/30/2024 9:30 AM EDT Office Visit [facility] Hematology/BMT and Cellular Therapy Program [address] [address] Zonia Hoffman, TELECOMMUNICATIONS NETWORK PLANNER 800 [facility] [address] [place] [phone] 09/30/2024 11:00 AM EDT Appointment [facility] 1 [address] [place] [address] 10/01/2024 8:30 AM EDT Appointment [facility] 1 [address] [place] [address] 10/02/2024 8:00 AM EDT Appointment [facility] 1 [address] [place] [address] 10/03/2024 8:00 AM EDT Appointment [facility] 1 [address] [place] [address] 10/04/2024 8:00 AM EDT Appointment [facility] 1 [address] [place] [address] 10/05/2024 8:00 AM EDT Appointment [facility] 1 [address] [place] [address] 10/06/2024 8:00 AM EDT Appointment [facility] 1 [address] [place] [address] 10/28/2024 11:00 AM EDT Clinical Support [facility] Hematology/BMT and Cellular Therapy Program [address] [address] 10/28/2024 11:30 AM EDT Office Visit [facility] Hematology/BMT and Cellular Therapy Program [address] [address] Zonia Hoffman, TELECOMMUNICATIONS NETWORK PLANNER 800 [facility] [address] [place] [phone] documented as of this encounter Visit Diagnoses Not on filedocumented in this encounter Additional Health Concerns Assessment Noted Time A fall risk assessment has been complete d for the patient 09/19/2024 8:38 AM EDT A Body Mass Index follow-up plan has been documented for the patient 05/28/2024 1:52 PM EST documented as of this encounter Care Teams Assistant Field Hockey Coach Relationship Specialty Start Date End Date Jevon Vazquez MD [address] [place] [address] [address]1 [address] [place] [id number] PCP - General 03/23/22 documented as of this encounter
--- OUTSIDE RECORDS SUMMARY | 2024-09-29 09:00 | XMS_ITS | Encounter Summary ---
Author Organization Healthcare Address [address] [place] [address] Care Team Providers Care Diesel Engine Fitter Name Role Phone Jevon Vazquez MD Primary Care Provider [phone] Encounter Details Date Type Department Care Team [...] Hematology/BMT and Cellular Therapy Program [address] [address] 09/30/2024 9:30 AM EDT Office Visit [facility] Hematology/BMT and Cellular Therapy Program [address] [address] Zonia Hoffman, DIE MAINTENANCE 800 [facility] [address] [place] [phone] 09/30/2024 11:00 AM EDT Appointment [facility] 1 [address] [place] [address] 10/01/2024 8:30 AM EDT Appointment [facility] 1 [address] [place] [address] 10/02/2024 8:00 AM EDT Appointment [facility] 1 [address] [place] [address] 10/03/2024 8:00 AM EDT Appointment [facility] 1 [address] [place] [address] 10/04/2024 8:00 AM EDT Appointment [facility] 1 [address] [place] [address] 10/05/2024 8:00 AM EDT Appointment [facility] 1 [address] [place] [address] 10/06/2024 8:00 AM EDT Appointment [facility] 1 [address] [place] [address] 10/28/2024 11:00 AM EDT Clinical Support [facility] Hematology/BMT and Cellular Therapy Program [address] [address] 10/28/2024 11:30 AM EDT Office Visit [facility] Hematology/BMT and Cellular Therapy Program [address] [address] Zonia Hoffman, DIE MAINTENANCE 800 [facility] [address] [place] [phone] documented as of this encounter Visit Diagnoses Not on filedocumented in this encounter Additional Health Concerns Assessment Noted Time A fall risk assessment has been complete d for the patient 09/19/2024 8:38 AM EDT A Body Mass Index follow-up plan has been documented for the patient 05/28/2024 1:52 PM EST documented as of this encounter Care Teams Diesel Engine Fitter Relationship Specialty Start Date End Date Jevon Vazquez MD [address] [place] [address] [address]1 [address] [place] [id number] PCP - General 03/23/22 documented as of this encounter
--- OUTSIDE RECORDS SUMMARY | 2024-09-29 09:00 | XMS_ITS | Encounter Summary ---
Author Organization Healthcare Address [address] [place] [address] Care Team Providers Care Dry Sander Name Role Phone Jevon Vazquez MD Primary Care Provider [phone] Encounter Details Date Type Department Care Team ([facility] st Contact Info) Description 07/15/2024 Telephone [facility] Hematology/BMT and Cellular Therapy Program [address] [address] Zonia Hoffman, INDUSTRIAL GAS FITTER 800 [facility] [address] [place] [address] Social History Tobacco Use Types Packs/Day Years [...] for Call: Per PT call to [facility], faibana Hoffman appt clarity, asking to have Jorge from clinical care team. Best contact number and optimal time of day to reach caller: [phone] Note: Please do not reply to this [...] ([facility] st Contact Info) Description 09/30/2024 9:00 AM EDT Clinical Support [facility] Hematology/BMT and Cellular Therapy Program [address] [place] [phone] 09/30/2024 9:30 AM EDT Office Visit [facility] Hematology/BMT and Cellular Therapy Program [address] [address] Zonia Hoffman, INDUSTRIAL GAS FITTER 800 [facility] [address] [place] [phone] 09/30/2024 11:00 AM EDT Appointment [facility] 1 [address] [place] [address] 10/01/2024 8:30 AM EDT Appointment [facility] 1 [address] [place] [address] 10/02/2024 8:00 AM EDT Appointment [facility] 1 [address] [place] [address] 10/03/2024 8:00 AM EDT Appointment [facility] 1 [address] [place] [address] 10/04/2024 8:00 AM EDT Appointment [facility] 1 [address] [place] [address] 10/05/2024 8:00 AM EDT Appointment [facility] 1 [address] [place] [address] 10/06/2024 8:00 AM EDT Appointment [facility] 1 [address] [place] [address] 10/28/2024 11:00 AM EDT Clinical Support [facility] Hematology/BMT and Cellular Therapy Program [address] [place] [address] 10/28/2024 11:30 AM EDT Office Visit [facility] Hematology/BMT and Cellular Therapy Program [address] [place] [address] Zonia Hoffman, INDUSTRIAL GAS FITTER 800 [facility] [address] [place] [phone] documented as of this encounter Visit Diagnoses Not on filedocumented in this encounter Additional Health Concerns Assessment Noted Time A fall risk assessment has been complete d for the patient 06/18/2024 10:22 AM EST A Body Mass Index follow-up plan has been documented for the patient 05/28/2024 1:52 PM EST documented as of this encounter Care Teams Dry Sander Relationship Specialty Start Date End Date Jevon Vazquez MD [address] [place] [address] [address]1 [address] [place] [address] PCP - General 03/23/22 documented as of this encounter
--- OUTSIDE RECORDS SUMMARY | 2024-09-29 09:00 | XMS_ITS | Encounter Summary ---
Author Organization Healthcare Address [address] [place] [address] Care Team Providers Care Stove Tender Name Role Phone Jevon Vazquez MD Primary Care Provider [phone] Encounter Details Date Type Department Care Team (Latest Contact Info) Description 09/28/2024 Travel Social History Tobacco Use Types Packs/Day [...] Hematology/BMT and Cellular Therapy Program [address] [address] 09/30/2024 9:30 AM EDT Office Visit [facility] Hematology/BMT and Cellular Therapy Program [address] [address] Zonia Hoffman, HORSE STUD WORKER 800 [facility] [address] [place] [address] 09/30/2024 11:00 AM EDT Appointment [facility] 1 [address] [place] [address] 10/01/2024 8:30 AM EDT Appointment [facility] 1 [address] [place] [address] 10/02/2024 8:00 AM EDT Appointment [facility] 1 [address] [place] [address] 10/03/2024 8:00 AM EDT Appointment [facility] 1 [address] [place] [address] 10/04/2024 8:00 AM EDT Appointment [facility] 1 [address] [place] [address] 10/05/2024 8:00 AM EDT Appointment [facility] 1 [address] [place] [address] 10/06/2024 8:00 AM EDT Appointment [facility] 1 [address] [place] [address] 10/28/2024 11:00 AM EDT Clinical Support [facility] Hematology/BMT and Cellular Therapy Program [address] [address] 10/28/2024 11:30 AM EDT Office Visit [facility] Hematology/BMT and Cellular Therapy Program [address] [address] Zonia Hoffman, HORSE STUD WORKER 800 [facility] [address] [place] [address] documented as of this encounter Visit Diagnoses Not on filedocumented in this encounter Additional Health Concerns Assessment Noted Time A fall risk assessment has been complete d for the patient 09/19/2024 8:38 AM EDT A Body Mass Index follow-up plan has been documented for the patient 05/28/2024 1:52 PM EST documented as of this encounter Care Teams Stove Tender Relationship Specialty Start Date End Date Jevon Vazquez MD [address] [place] [address] #1 [address] [place] [id number] PCP - General 03/23/22 documented as of this encounter
[2024-09-29 09:14] LABS: Basophils % 0.5 % (0.1-2.0); Eosinophils # 0.1 Kmm3 (0.0-0.4); Eosinophils % 2.3 % (0.1-12.0); Hematocrit 21.8 % (37.0-47.0); Hemoglobin 7.3 g/dL (12.2-16.2); Immature Granulocytes # 0.01 10^3uL; Immature Granulocytes % 0.5 %; Lymphocytes % 47.5 % (10-50); Mean Corpuscular HGB Conc 33.5 g/dL (31.8-35.4); Mean Corpuscular Hemoglobin 39.2 pg (27.0-31.2); Mean Corpuscular Volume 117.2 fl (81-99); Monocytes # 0.2 K/mm3 (0.1-1.0); Monocytes % 8.3 % (1.7-9.3); Neutrophils # 0.9 K/mm3 (1.8-7.8); Neutrophils % 40.9 % (37.0-80.0); Nucleated Red Blood Cells # 0 10^3/uL; Nucleated Red Blood Cells % 0 %; Red Blood Count 1.86 M/mm3 (4.20-5.40); Red Cell Distribution Width 18.5 % (11.5-17.5); Red Cell Distribution Width-SD 78.4 fL; White Blood Count 2.2 K/mm3 (4.8-10.8)
[2024-09-29 09:20] LABS: MANUAL DIFFERENTIAL MANUAL DIFFERENTIAL (MANUAL DIFF); Platelet Count 13 K/mm3 (142-424)
[2024-09-29 09:25] LABS: Albumin Level 3.6 g/dl (3.5-5.0); Chloride 110 mmol/L (98-107)
[2024-09-29 09:26] LABS: Potassium 3.8 mmoL/L (3.5-5.1); Sodium 138 mmol/L (136-145)
[2024-09-29 09:28] LABS: Anion Gap 6.8 mEq/L (5-15); Blood Urea Nitrogen 20 mg/dl (7-17); Carbon Dioxide 25 mmol/L (22.0-30.0); Creatinine Clearance Estimated 46 mL/min (50-200); Estimated Glomerular Filt Rate 54 ml/min (>60); GFR (African American) 66 ML/MIN (>60)
[2024-09-29] MEDS: SODIUM CHLORIDE 0.9% 10ML FLUSH SYRINGE 10 ML IV (09:28)
[2024-09-29 09:29] LABS: Alanine Aminotransferase 15 U/L (12-78); Albumin/Globulin Ratio 1.7 (1.1-1.8); Alkaline Phosphatase 43 U/L (38-126); Aspartate Amino Transferase 35 U/L (14-36); Bilirubin,Total 0.2 mg/dl (0.2-1.3); Calcium 9.5 mg/dl (8.4-10.2); Globulin 2.1 g/dL (1.3-3.2); Glucose 136 mg/dl (74-100); Total Protein,Serum 5.7 g/dl (6.3-8.2)
[2024-09-29 09:59] LABS: Eosinophils % 4 % (0-3); Lymphocytes % 40 % (10-50); Monocytes % 8 % (2-9); Neutrophils % 48 % (42-76); Total Cells Counted 100
[2024-09-29 10:01] LABS: Macrocytosis 2+; Platelet Estimate Marked Decrease
== END 2024-09-29 09:31 | disposition home or self-care (01) ==
LOC: INF 08:55
PROVIDERS: PCP Family Medicine; Visit Provider Internal Medicine Medical Oncology
DX: C92.00 Acute myeloblastic leukemia, not having achieved remission (principal)
CPT/HCPCS: 36591; 80053; 85007; 85025; 85027; J1642

== ENCOUNTER 2024-09-30 13:32 | Outpatient (CLI) | payer MEDICARE, BC, SELFPAY ==
--- OUTSIDE RECORDS SUMMARY | 2024-09-19 07:30 | XMS_ITS | Encounter Summary ---
Author Organization [facility] Address [address] [place] [address] Care Team Providers Care Software Design Analyst Name Role Phone Jevon Vazquez MD Primary Care Provider [phone] Reason for Visit * Reason Comments Nurse Visit Encounter Details Date Type Department Care Team ([facility] Contact Info) Description 09/19/2024 7:30 AM EDT Clinical Support [facility] Hematology/BMT and Cellular Therapy Program [address] [phone] Social History Tobacco Use Types Packs/Day Years [...] Upcoming Encounters Date Type Department Care Team ([facility] Contact Info) Description 10/14/2024 11:00 AM EDT Clinical Support [facility] Hematology/BMT and Cellular Therapy Program [address] [phone] 10/14/2024 11:30 AM EDT Office Visit [facility] Hematology/BMT and Cellular Therapy Program [address] [phone] Zonia Hoffman, MECHANICAL ENGINEERING TEACHER 800 [facility] [address] [place] [address] documented as of this encounter Visit Diagnoses Not on filedocumented in this encounter Additional Health Concerns Assessment Noted Time A fall risk assessment has been complete d for the patient 09/19/2024 8:38 AM EDT A Body Mass Index follow-up plan has been documented for the patient 05/28/2024 1:52 PM EST documented as of this encounter Care Teams Software Design Analyst Relationship Specialty Start Date End Date Jevon Vazquez MD [address] [place] [address] #1 #1 [place] [address] PCP - General 03/23/22 documented as of this encounter
--- OUTSIDE RECORDS SUMMARY | 2024-09-19 09:30 | XMS_ITS | Encounter Summary ---
Author Organization Healthcare Address [address] [place] [address] Care Team Providers Care Structural Metal Worker Name Role Phone Jevon Vazquez MD Primary Care Provider [phone] Reason for Visit * Reason Comments Follow-up Encounter Details Date Type Department Care Team (Latest Contact Info) Description 09/19/2024 9:30 AM EDT Clinical Support [facility] Cancer Acute Treatment Clinic [address] [place] [address] Acute myeloid leukemia not having achieved remission [...] [facility] Hematology/BMT and Cellular Therapy Program [address] [address] 10/14/2024 11:30 AM EDT Office Visit [facility] Hematology/BMT and Cellular Therapy Program [address] [address] Zonia Hoffman, SEED SORTER 800 [facility] [address] [place] [address] documented as of this encounter Procedures Procedure [...] ORDERABLES Final Re sult Performing Organization Address [facility] Co de Phone Number [facility] [address] [place] [address] * Transfuse platelets, Irradiated (09/19/2024 10:02 AM EDT) us Lexi Ferraro APRN BLOOD TRANSFUSION ORDERABL ES Final Result * Prepare Leukocyte Reduced Platelets (09/19/2024 9:08 AM EDT) Product Code [id number] CH BLOO D BANK Dispense Status Transfused BLOOD BANK Blood Expiration Date [id number] BLOOD BANK Unit Number [id number] CH B LOOD BANK Product Blood Type 6200 BLOOD BANK Blood Type A+ BLOOD BANK us Provider Not In System BLOOD BANK PRODUCT ORD ERABLES Final Result Performing Organization Address [facility] de Phone Number BLOOD BANK [address] documented in this encounter Visit Diagnoses [...] documented as of this encounter Care Teams Structural Metal Worker Relationship Specialty Start Date End Date Jeovn Vazquez MD [address] [place] [address] #1 #1 [place] [address] PCP - General 03/23/22 documented as of this encounter
--- OUTSIDE RECORDS SUMMARY | 2024-09-19 12:00 | XMS_ITS | Encounter Summary ---
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) Procedures Leukemia/Lymphoma - Immunophenotyping by Flow Cytometry New Mckinney MD [address] [facility] [address] [address] Phone: tel: fax: Referral ID Status Reason Start Date Expiration Date V isits Requested Visits Authorized [id number] Authorized 09/11/2024 03/13/2026 1 1 Encounter Details Date Type Department Care Team (Latest Contact Info) Description 09/19/2024 12:00 PM EDT Procedure Visit [facility] Hematology/BMT and Cellular Therapy Program [address] [phone] Lexi Ferraro, RODDY [address] [facility] [address] [address] Acute myeloid leukemia not having [...] to surronding structures. Alternatives discussed: Delayed treatment [place] protocol: Procedure explained and questions answered to [...] Description 10/14/2024 11:00 AM EDT Clinical Support [facility] Hematology/BMT and Cellular Therapy Program [address] [phone] 10/14/2024 11:30 AM EDT Office Visit [facility] Hematology/BMT and Cellular Therapy Program [address] [phone] Zonia Hoffman APRN [address] [facility] [address] [place] [phone] documented as of this encounter Procedures Procedure [...] to surronding structures. Alternatives discussed: Delayed treatment [place] protocol: Procedure explained and questions answered to [...] Type Bone Marrow 09/24/2024 2:37 PM EDT [facility] Clinical Indication Myelodysplastic Syndrome 09/24/2024 2:37 PM EDT [facility] Specimen Adequacy Adequate 025 2:37 PM EDT [facility] Chromosome Analysis Result Giemsa-banded metaphase cells from unstimulated bone marrow cultures showed a 46,XX[20] chromosome pattern. 09/24/2024 2:37 PM EDT [facility] Interpretation Normal female chromosome analysis. No clonal abnormalities were detected at current resolution. Clinical correlation is recommended. # cells counted = 20 # cells analyzed = 20 # cells karyotyped = 2 Band resolution: 450-525 09/24/2024 2:37 PM EDT [facility] Pathologist Signature Reviewed by: Corey Tejada 09/24/2024 2:37 PM EDT [facility] Bone Marrow Non-blood Collection / Unknown 09/19/2024 7:29 AM EDT 09/19/2024 12:35 PM EDT us New Mckinney MD LAB CYTOGENETICS ORDERABLES F inal Result [facility] [address] [place] [address] * Myeloid Focused Panel, 50 gene (09/19/2024 7:29 AM EDT) Interpretation The following two (2) genes, TP53 and DNMT3A, with persistent variants have been detected in this bone marrow specimen. The variant, p.[id number], in TP53 gene and the variant, p.[id number], in the RUNX 1 gene are not detectable at current cutoff and coverage established in this lab. Gene: TP53 Mutation: c.814G>A; p.Fql372Ems Allele Frequency (%): 37% (45% Dec 2023) ID: [id number] Gene: DNMT3A Mutation: c.1522delC; p.[id number] 3 Allele Frequency (%): 36% (48% Dec 2023) Additional Details on Mutation Identified: Gene Transcript Genome Chrom Coordinate RefVar DNMT3A [id number] Hg19 2 [id number] delC TP53 [id number] Hg19 17 [id number] G>A 09/29/2024 4:05 PM EDT [facility] Methodology The following 50 [...] then sequenced on the Illumina NextSeq 2000 ([employer], [place]). A custom bioinformatics pipeline aligns [...] of hematologic malignancies. 09/29/2024 4:05 PM EDT [facility] Disclaimer This test was developed and its performance characteristics determined by the Clinical Molecular and Genomic Pathology Laboratory at the [facility]. It has not been cleared [...] laboratory testing. 09/29/2024 4:05 PM EDT [facility] Pathologist Signature Reviewed by: Corey Tejada 09/29/2024 4:05 PM EDT [facility] Bone Marrow Specimen from bone marrow obtained by aspiration / Unknown Non-blood Collection / Unknown 09/19/2024 7:29 AM EDT 09/19/2024 12:03 PM EDT us New Mckinney MD LAB MOLECULAR DIAGNOSTICS ORD ERABLES Final Result [facility] [address] [place] [address], * Leukemia/Lymphoma - Immunophenotyping by Flow Cytometry (09/19/2024 7:29 AM EDT) Clinical Indication AML 09/22/2024 10:29 AM EDT [facility] Flow Cytometry Interpretation A. BONE MARROW FOR FLOW CYTOMETRY: - MIXED MARROW ELEMENTS WITH NO EVIDENCE OF INCREASED BLASTS OR ABNORMAL LYMPHOID POPULATIONS, SEE COMMENT. 09/22/2024 10:29 AM EDT [facility] Comments CD45/side scatter analysis [...] surface light chains 09/22/2024 10:29 AM EDT [facility] Disclaimer This test was developed and its performance characteristics determined by the Immuno-Molecular Pathology Laboratory at the [facility]. It has not been cleared [...] on the report. 09/22/2024 10:29 AM EDT [facility] Pathologist Signature Reviewed by: Lisandra Epstein MD 09/22/2024 10:29 AM EDT [facility] MRD Indicated Test Not Indicated 12/2024 10:29 AM EDT [facility] Bone Marrow Specimen from bone marrow obtained by aspiration / Unknown Non-blood Collection / Unknown 09/19/2024 7:29 AM EDT 09/19/2024 12:13 PM EDT us New Mckinney MD LAB FLOW CYTOMETRY ORDERABLES Final Result [facility] [address] [place] [address] * (ABNORMAL) CBC and differential (09/19/2024 7:29 AM EDT) WBC Count 2.70(L) 3.70 - 10.30 10*3/uL LAB HEMATOLOGY METHOD 09/19/2024 9:13 AM EDT [facility] RBC Count 1.86(L) 3.90 - 5.20 10*6/uL LAB HEMATOLOGY METHOD 09/19/2024 9:13 AM EDT [facility] HGB 7.1(L) 11.2 - 15.7 g/dL LAB HEMATOLOGY METHOD 09/19/2024 9:13 AM EDT [facility] HCT 21.5(L) 34.0 - 45.0 % LAB HEMATOLOGY METHOD 09/19/2024 9:13 AM EDT [facility] Platelet Count 14(LL) 155 - 369 10*3/uL LAB HEMATOLOGY METHOD 09/19/2024 9:13 AM EDT [facility] MCV 116(H) 79 - 98 fL LAB HEMATOLOGY METHOD 09/19/2024 9:13 AM EDT [facility] MCH 38.2(H) 26.0 - 32.0 pg LAB HEMATOLOGY METHOD 09/19/2024 9:13 AM EDT [facility] MCHC 33.0 30.7 - 35.5 g/dL LAB HEMATOLOGY METHOD 09/19/2024 9:13 AM EDT [facility] RDW 21.8(H) 11.5 - 14.5 % LAB HEMATOLOGY METHOD 09/19/2024 9:13 AM EDT [facility] MPV 13.5(H) 8.8 - 12.5 fL LAB HEMATOLOGY METHOD 09/19/2024 9:13 AM EDT [facility] nRBC 0.0 <=0.0 per 100 WBCs LAB HEMATOLOGY METHOD 09/19/2024 9:13 AM EDT [facility] Differential Type Automated LAB HEMATOLOGY METHOD 09/19/2024 9:13 AM EDT [facility] Neutrophils % 51 % LAB HEMATOLOGY METHOD 09/19/2024 9:13 AM EDT [facility] Lymphocytes % 41 % LAB HEMATOLOGY METHOD 09/19/2024 9:13 AM EDT [facility] Monocytes % 7 % LAB HEMATOLOGY METHOD 09/19/2024 9:13 AM EDT [facility] Eosinophils % 1 % LAB HEMATOLOGY METHOD 09/19/2024 9:13 AM EDT [facility] Basophils % 0 % LAB HEMATOLOGY METHOD 09/19/2024 9:13 AM EDT [facility] Immature Granulocytes % 0 % LAB HEMATOLOGY METHOD 09/19/2024 9:13 AM EDT [facility] Neutrophils Absolute 1.35(L) 1.60 - 6.10 10*3/uL LAB HEMATOLOGY METHOD 09/19/2024 9:13 AM EDT [facility] Lymphocytes Absolute 1.10(L) 1.20 - 3.90 10*3/uL LAB HEMATOLOGY METHOD 09/19/2024 9:13 AM EDT [facility] Monocytes Absolute 0.20(L) 0.30 - 0.90 10*3/uL LAB HEMATOLOGY METHOD 09/19/2024 9:13 AM EDT [facility] Eosinophils Absolute 0.03 0.00 - 0.50 10*3/uL LAB HEMATOLOGY METHOD 09/19/2024 9:13 AM EDT [facility] Basophils Absolute 0.01 0.00 - 0.10 10*3/uL LAB HEMATOLOGY METHOD 09/19/2024 9:13 AM EDT [facility] Immature Granulocytes Absolute 0.01 0.00 - 0.06 10*3/uL LAB HEMATOLOGY METHOD 09/19/2024 9:13 AM EDT [facility] Blood Blood sample taken from central line / Unknown (Port) Long-term Catheter / Unknown 09/19/2024 7:29 AM EDT 09/19/2024 8:08 AM EDT Narrative [facility] - 09/19/2024 9:13 AM EDT Therapeutic decision making should be based on absolute values, rather than percentages. New Mckinney MD LAB BLOOD ORDERABLES Final Re sult [facility] [address] [place] [id number] * Bone marrow exam (09/19/2024 7:29 AM EDT) Case Report Bone Marrow Case: [id number] Authorizing Provider: New Mckinney MD Collected: 09/19/2024 0729 Ordering Location: [facility] Hematology/BMT and Received: 09/19/2024 1216 Cellular Therapy Program Pathologist: Lisandra Epstein MD Specimens: A) - Bone Marrow Aspirate, right B) - Bone Marrow Biopsy, right C) - Peripheral Blood for Bone Marrow 4:30 PM EDT [facility] Cytogenetics Report, Addendum Chromosome Analysis Result Giemsa-banded metaphase cells from unstimulated bone marrow cultures showed a 46,XX[20] chromosome pattern. Interpretation Normal female chromosome analysis. No clonal abnormalities were detected at current resolution. Clinical correlation is recommended. 4:30 PM EDT [facility] Addendum electronically signed by Lisandra Epstein MD on 09/24/2024 at 1630 EDT Final Diagnosis PERIPHERAL BLOOD AND BONE MARROW, RIGHT POSTERIOR ILIAC CREST, (ASPIRATE SMEAR, AND CORE BIOPSY): - HYPOCELLULAR BONE MARROW WITH MARKEDLY DECREASED MEGAKARYOCYTES; NO SIGNIFICANT DYSPOIESIS OR INCREASE IN BLASTS. 4:30 PM EDT [facility] at 1453 EDT Clinical Information AML 09/14 4:30 PM EDT [facility] CBC and Differential PERIPHERAL [...] blasts are not seen. 4:30 PM EDT [facility] Bone Marrow Differential BONE MARROW DIFFERENTIAL: 200 cells Normal Patient Neutrophils 15-50 34 Metamyelocytes 4-19 3 Myelocytes 1-18 10 Promyelocytes 1-8 1 Blasts 0-2 1 Monocytes 0-5 4 Erythroid 16-38 22 Lymphocytes 3-24 13 Eosinophils 0-6 8 Basophils 0-2 0 Plasma cells 0-4 4 Other 4:30 PM EDT [facility] Bone Marrow Aspirate and [...] granulomas are identified. Bone trabeculae are unremarkable. 4:30 PM EDT [facility] Special and Immunohistochemical Stains Special Stain: A1-1 Vazquez-Giemsa A1-2 Vazquez-Giemsa A1-3 Vazquez-Giemsa C1-1 Vazquez-Giemsa IHC: B1-2 CD34 All controls show appropriate reactivity. All immunohistochemis try, in situ hybridization, and histochemical tests were developed by and are performed at the [facility], [address] [place] [address]. All tests reported here, except those addressing [...] negativity on decalcified specimens. 5 4:30 PM T [facility] Flow Cytometry Interpretation MIXED MARROW ELEMENTS WITH NO EVIDENCE OF INCREASED BLASTS OR ABNORMAL LYMPHOID POPULATIONS ([id number]). 5 4:30 PM EDT [facility] CYTOGENETICS/MOLECULA R INTERPRETATION Correlation with cytogenetic/molec ular analysis is suggested. 5 4:30 PM EDT [facility] Gross Description B. RIGHT A single specimen is received in formalin labeled bone marrow biopsy right posterior iliac crest and consists of 2 piece(s) of red/white tissue measuring 2.1/0.3 cm in length 0.2 cm in diameter. The specimen is submitted in to Histology for decalcification and routine processing. Cold Time: <1m 5 4:30 PM T [facility] Note: A resident was involved in the service. I attest I examined the relevant preparations for the specimens and confirmed the diagnosis or interpretation. 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
--- OUTSIDE RECORDS SUMMARY | 2024-09-30 09:00 | XMS_ITS | Encounter Summary ---
Author Organization Healthcare Address [address] [place] [address] Care Team Providers Care Electrical And Instrumentation Manager Name Role Phone Jevon Vazquez MD Primary Care Provider [phone] Reason for Visit * Reason Comments Labs Only Encounter Details Date Type Department Care Team ([facility] Contact Info) Description 09/30/2024 9:00 AM EDT Clinical Support [facility] Hematology/BMT and Cellular Therapy Program [address] [phone] Jyoti Kemp Acute myeloid leukemia not having [...] Encounters Date Type Department Care Team ([facility] Contact Info) Description 10/14/2024 11:00 AM EDT Clinical Support [facility] Hematology/BMT and Cellular Therapy Program [address] [phone] 10/14/2024 11:30 AM EDT Office Visit [facility] Hematology/BMT and Cellular Therapy Program [address] [phone] Zonia Hoffman, [employer]ING RUNNING MACHINE TENDER 800 [facility] [address] [place] [phone] documented as of this encounter Procedures Procedure [...] - 99 mg/dL 09/30/2024 10:20 AM EDT [facility] BUN, Plasma 21 8 - 23 mg/dL 09/30/2024 10:20 AM EDT [facility] Creatinine, Plasma 1.00 0.60 - 1.10 mg/dL 09/30/2024 10:20 AM EDT [facility] BUN/Creatinine Ratio 21 09/30/2024 10:20 AM EDT [facility] Sodium, Plasma 137 136 - 145 mmol/L 09/30/2024 10:20 AM EDT [facility] Potassium, Plasma 3.8 3.6 - 4.9 mmol/L 09/30/2024 10:20 AM EDT [facility] Chloride, Plasma 107 97 - 107 mmol/L 09/30/2024 10:20 AM EDT [facility] CO2, Plasma 22 22 - 29 mmol/L 09/30/2024 10:20 AM EDT [facility] Anion Gap 8 6 - 16 mmol/L 09/30/2024 10:20 AM EDT [facility] Total Calcium, Plasma 9.8 8.9 - 10.2 mg/dL 09/30/2024 10:20 AM EDT [facility] Total Protein 5.9(L) 6.3 - 7.9 g/dL 09/30/2024 10:20 AM EDT [facility] Albumin, Plasma 3.8 3.5 - 5.2 g/dL 09/30/2024 10:20 AM EDT [facility] AST, Plasma 28 10 - 35 U/L 09/30/2024 10:20 AM EDT [facility] ALT, Plasma 14 10 - 35 U/L 09/30/2024 10:20 AM EDT [facility] Alkaline Phosphatase, Plasma 34(L) 46 - 142 U/L 09/30/2024 10:20 AM EDT [facility] Total Bilirubin, Plasma 0.3 0.2 - 1.1 mg/dL 09/30/2024 10:20 AM EDT [facility] eGFRcr 59.6 mL/min/1.7 3m*2 09/30/2024 10:20 AM EDT [facility] Comment:Reported eGFRcr in m L/min/1.73m2 is based the CKD-EPI 2020 equation that does not use a race coefficient. Blood Venous blood specimen / Unknown (Port) Long-term Catheter / Unknown 09/30/2024 9:11 AM EDT 09/30/2024 9:50 AM EDT us Zonia Hoffman APRN LAB BLOOD ORDERABLES Final Res ult [facility] [address] [place] [address] * (ABNORMAL) CBC and Differential (09/30/2024 9:11 AM EDT) WBC Count 3.34(L) 3.70 - 10.30 10*3/uL LAB HEMATOLOGY METHOD 09/30/2024 11:07 AM EDT [facility] RBC Count 1.91(L) 3.90 - 5.20 10*6/uL LAB HEMATOLOGY METHOD 09/30/2024 11:07 AM EDT [facility] HGB 7.7(L) 11.2 - 15.7 g/dL LAB HEMATOLOGY METHOD 09/30/2024 11:07 AM EDT [facility] HCT 22.8(L) 34.0 - 45.0 % LAB HEMATOLOGY METHOD 09/30/2024 11:07 AM EDT [facility] Platelet Count 17(LL) 155 - 369 10*3/uL LAB HEMATOLOGY METHOD 09/30/2024 11:07 AM EDT [facility] MCV 119(H) 79 - 98 fL LAB HEMATOLOGY METHOD 09/30/2024 11:07 AM EDT [facility] MCH 40.3(H) 26.0 - 32.0 pg LAB HEMATOLOGY METHOD 09/30/2024 11:07 AM EDT [facility] MCHC 33.8 30.7 - 35.5 g/dL LAB HEMATOLOGY METHOD 09/30/2024 11:07 AM EDT [facility] RDW 18.7(H) 11.5 - 14.5 % LAB HEMATOLOGY METHOD 09/30/2024 11:07 AM EDT [facility] MPV 11.1 8.8 - 12.5 fL LAB HEMATOLOGY METHOD 09/30/2024 11:07 AM EDT [facility] nRBC 0.0 <=0.0 per 100 WBCs LAB HEMATOLOGY METHOD 09/30/2024 11:07 AM EDT [facility] Differential Type Automated LAB HEMATOLOGY METHOD 09/30/2024 11:07 AM EDT [facility] Neutrophils % 65 % LAB HEMATOLOGY METHOD 09/30/2024 11:07 AM EDT [facility] Lymphocytes % 26 % LAB HEMATOLOGY METHOD 09/30/2024 11:07 AM EDT [facility] Monocytes % 7 % LAB HEMATOLOGY METHOD 09/30/2024 11:07 AM EDT [facility] Eosinophils % 1 % LAB HEMATOLOGY METHOD 09/30/2024 11:07 AM EDT [facility] Basophils % 1 % LAB HEMATOLOGY METHOD 09/30/2024 11:07 AM EDT [facility] Immature Granulocytes % 0 % LAB HEMATOLOGY METHOD 09/30/2024 11:07 AM EDT [facility] Neutrophils Absolute 2.17 1.60 - 6.10 10*3/uL LAB HEMATOLOGY METHOD 09/30/2024 11:07 AM EDT [facility] Lymphocytes Absolute 0.87(L) 1.20 - 3.90 10*3/uL LAB HEMATOLOGY METHOD 09/30/2024 11:07 AM EDT [facility] Monocytes Absolute 0.24(L) 0.30 - 0.90 10*3/uL LAB HEMATOLOGY METHOD 09/30/2024 11:07 AM EDT [facility] Eosinophils Absolute 0.03 0.00 - 0.50 10*3/uL LAB HEMATOLOGY METHOD 09/30/2024 11:07 AM EDT [facility] Basophils Absolute 0.02 0.00 - 0.10 10*3/uL LAB HEMATOLOGY METHOD 09/30/2024 11:07 AM EDT [facility] Immature Granulocytes Absolute 0.01 0.00 - 0.06 10*3/uL LAB HEMATOLOGY METHOD 09/30/2024 11:07 AM EDT [facility] Blood Venous blood specimen / Unknown (Port) Long-term Catheter / Unknown 09/30/2024 9:11 AM EDT 09/30/2024 9:34 AM EDT Narrative [facility] - 09/30/2024 11:07 AM EDT Therapeutic decision making should be based on absolute values, rather than percentages. 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
--- OUTSIDE RECORDS SUMMARY | 2024-09-30 09:30 | XMS_ITS | Encounter Summary ---
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 Encounter Details Date Type Department Care Team ([facility] st Contact Info) Description 09/30/2024 9:30 AM EDT Office Visit [facility] Hematology/BMT and Cellular Therapy Program [address] [address] Zonia Hoffman, CLERK CASHIER 800 [facility] [address] [place] [phone] Acute myeloid leukemia not having achieved remission [...] 8:03 AM EDT documented in this encounter Plan of Treatment Upcoming Encounters Date Type Department Care Team (Late st Contact Info) Description 10/14/2024 11:00 AM EDT Clinical Support [facility] Hematology/BMT and Cellular Therapy Program [address] [address] 10/14/2024 11:30 AM EDT Office Visit [facility] Hematology/BMT and Cellular Therapy Program [address] [phone] Zonia Hoffman, CLERK CASHIER 800 [facility] [address] [place] [phone] documented as of this encounter Results * [...] Res ult [facility] [address] [place] [address] * (ABNORMAL) CBC and Differential (09/30/2024 9:11 [...] ORDERABLES Final Res ult Performing Organization Address City/State/[facility] Co de Phone Number [facility] [address] [place] [address] documented in this encounter Visit Diagnoses Diagnosis [...] as of this encounter Care Teams Electronic Equipment Repairmen Relationship Specialty Start Date End Date Jevon Vazquez MD [address] [place] [address] #1 #1 [place]P [place] [id number] PCP - General 03/23/22 documented as of this encounter
[2024-09-30 13:35] VITALS: BMI 22.1
--- OUTSIDE RECORDS SUMMARY | 2024-09-30 13:36 | XMS_ITS | Encounter Summary ---
Author Organization [facility] Address [address] [place] [address] Care Team Providers Care Coil Winder Hand Name Role Phone Jevon Vazquez MD Primary Care Provider [phone] Reason for Visit * Reason Comments Med Refill Encounter Details Date Type Department Care Team ([facility] Contact Info) Description 01/30/2024 Refill [facility] Hematology/BMT and Cellular Therapy Program [address] [phone] [place] M[place]in[place] MD [address] [facility] [address] [place] [phone] Social History Tobacco Use Types Packs/Day Years [...] Upcoming Encounters Date Type Department Care Team ([facility] Contact Info) Description 10/14/2024 11:00 AM EDT Clinical Support [facility] Hematology/BMT and Cellular Therapy Program [address] [place] [address] 10/14/2024 11:30 AM EDT Office Visit [facility] Hematology/BMT and Cellular Therapy Program [address] [phone] Zonia Hoffman, SHUTTLECOCK FEATHER TRIMMER 800 [facility] [address] [place] [address] documented as of this encounter Visit Diagnoses Not on filedocumented in this encounter Additional Health Concerns Assessment Noted Time A fall risk assessment has been complete d for the patient 01/11/2024 9:16 AM EDT A Body Mass Index follow-up plan has been documented for the patient 01/21/2024 6:16 AM EDT documented as of this encounter Care Teams Coil Winder Hand Relationship Specialty Start Date End Date Jevon Vazquez MD [address] [place] [address] #1 #1 [place] [address] PCP - General 03/23/22 documented as of this encounter
--- OUTSIDE RECORDS SUMMARY | 2024-09-30 13:36 | XMS_ITS | Encounter Summary ---
Author Organization [facility] Address [address] [place] [address] Care Team Providers Care Inside Sales Account Representative Name Role Phone Jevon Vazquez MD Primary Care Provider [phone] Encounter Details Date Type Department Care Team ([facility] Contact Info) Description 09/19/2024 Telephone [facility] Hematology/BMT and Cellular Therapy Program [address] [place] [address] Romana Richmond RN [facility] Social History Tobacco Use Types [...] Department Care Team ([facility] Contact Info) Description 10/14/2024 11:00 AM EDT Clinical Support [facility] Hematology/BMT and Cellular Therapy Program [address] [place] [address] 10/14/2024 11:30 AM EDT Office Visit [facility] Hematology/BMT and Cellular Therapy Program 750 [facility] [employer] [place] [address] Zonia Hoffman, DAIRY PROCESSING SUPERVISOR 800 [facility] [address] [place] [address] documented as of this encounter Visit Diagnoses Not on filedocumented in this encounter Additional Health Concerns Assessment Noted Time A fall risk assessment has been complete d for the patient 09/19/2024 8:38 AM EDT A Body Mass Index follow-up plan has been documented for the patient 05/28/2024 1:52 PM EST documented as of this encounter Care Teams Inside Sales Account Representative Relationship Specialty Start Date End Date Jevon Vazquez MD [address] [place] [address] #1 #1 [place] [address] PCP - General 03/23/22 documented as of this encounter
--- OUTSIDE RECORDS SUMMARY | 2024-09-30 13:36 | XMS_ITS ---
Author Organization [facility] Address [address] [place] [address] Care Team Providers Care Grinder Set Up Operator Jig Name Role Phone Jevon Vazquez MD Primary Care Provider [phone] Active Problems Problem Noted Date Diagnosed Date [...]
--- OUTSIDE RECORDS SUMMARY | 2024-09-30 13:36 | XMS_ITS | Encounter Summary ---
Author Organization [facility] Address [address] [place] [address] Care Team Providers Care Reclamation Engineer Name Role Phone Jevon Vazquez MD Primary Care Provider [phone] Encounter Details Date Type Department Care Team ([facility] Contact Info) Description 09/15/2024 Telephone [facility] Hematology/BMT and Cellular Therapy Program [address] [phone] Zonia Hoffman, SUGAR DRIER 800 [facility] [address] [place] [phone] Social History Tobacco Use Types Packs/Day Years [...] CC Hematology/BMT and Cellular Therapy Program [address] [place] [phone] 10/14/2024 11:30 AM EDT Office Visit [facility] Hematology/BMT and Cellular Therapy Program [address] [place] [phone] Zonia Hoffman, SUGAR DRIER 800 [facility] [address] [place] [address] documented as of this encounter Visit Diagnoses Not on filedocumented in this encounter Additional Health Concerns Assessment Noted Time A fall risk assessment has been complete d for the patient 07/30/2024 8:29 AM EDT A Body Mass Index follow-up plan has been documented for the patient 05/28/2024 1:52 PM EST documented as of this encounter Care Teams Reclamation Engineer Relationship Specialty Start Date End Date Jevon Vazquez MD [address] [place] [address] #1 #1 [place] [address] PCP - General 03/23/22 documented as of this encounter
--- OUTSIDE RECORDS SUMMARY | 2024-09-30 13:36 | XMS_ITS | Encounter Summary ---
Author Organization Healthcare Address [address] [place] [address] Care Team Providers Care Auto Claims Adjuster Name Role Phone Jevon Vazquez MD Primary Care Provider [phone] Encounter Details Date Type Department Care Team ([facility] Contact Info) Description 09/19/2024 Orders Only [facility] Hematology/BMT and Cellular Therapy Program [address] [phone] 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, RN [facility] Social History [...] Upcoming Encounters Date Type Department Care Team ([facility] Contact Info) Description 10/14/2024 11:00 AM EDT Clinical Support [facility] Hematology/BMT and Cellular Therapy Program [address] [phone] 10/14/2024 11:30 AM EDT Office Visit [facility] Hematology/BMT and Cellular Therapy Program [address] [phone] Zonia Hoffman, PLASTIC WELDING MACHINE OPERATOR 800 [facility] [address] [place] [phone] documented as of this encounter Visit Diagnoses Not on filedocumented in this encounter Additional Health Concerns Assessment Noted Time A fall risk assessment has been complete d for the patient 09/19/2024 8:38 AM EDT A Body Mass Index follow-up plan has been documented for the patient 05/28/2024 1:52 PM EST documented as of this encounter Care Teams Auto Claims Adjuster Relationship Specialty Start Date End Date Jevon Vazquez MD [address] [place] [address] #1 #1 [place] [address] PCP - General 03/23/22 documented as of this encounter
--- OUTSIDE RECORDS SUMMARY | 2024-09-30 13:37 | XMS_ITS | Encounter Summary ---
Author Organization Healthcare Address [address] [place] [address] Care Team Providers Care Hand Counter Name Role Phone Jevon Vazquez MD Primary Care Provider [phone] Encounter Details Date Type Department Care Team [...] CC Hematology/BMT and Cellular Therapy Program [address] [phone] 10/14/2024 11:30 AM EDT Office Visit [facility] Hematology/BMT and Cellular Therapy Program [address] [phone] Zonia Hoffman, AUTOMOTIVE PRODUCT SPECIALIST 800 [facility] [address] [place] [phone] documented as of this encounter Visit Diagnoses Not on filedocumented in this encounter Additional Health Concerns Assessment Noted Time A fall risk assessment has been complete d for the patient 07/30/2024 8:29 AM EDT A Body Mass Index follow-up plan has been documented for the patient 05/28/2024 1:52 PM EST documented as of this encounter Care Teams Hand Counter Relationship Specialty Start Date End Date Jevon Vazquez MD [address] [place] [address] #1 #1 [place] [address] PCP - General 03/23/22 documented as of this encounter
--- OUTSIDE RECORDS SUMMARY | 2024-09-30 13:37 | XMS_ITS | Clinical Summary ---
Author Organization [facility] Address [address] [place] [address] Phone Care Team Providers Care Tin Whiz Machine Operator Name Role Phone Jevon Vazquez MD Primary Care Provider [phone] Allergies Active Allergy Reactions Criticality Noted Date [...] L4-5 LAMINECTOMY; Surgeon: Ivan Bartholomew MD; Location: [facility]; Service: Spine Medical History Medical [...] Last Done Comments Wellness Exam Medicare 1953 Kidney Health: uACR 1960 Lipids 1960 Diabetic Eye Exam 1968 Hepatitis C Screening 1968 Breast Cancer Screening 1990 Cologuard 11/04/1995 Colon Cancer Screening 11/04/1995 Colonoscopy 11/04/1995 FIT 11/04/1995 Sigmoidoscopy 11/04/1995 Virtual Colonography 11/04/1995 Zoster (2 of 3) 05/16/2023 03/21/2023 Hemoglobin A1c 07/26/2023 01/24/2023, 11/11/2022 Kidney Health: eGFR 11/12/2023 11/11/2022, COVID-19 Vaccine ( season) 2023 02/18/2021, 07/10/2020, 06/12/2020 Influenza Vaccine [...] Procedure Name Priority Date/Time Associated Diagnosis Comments BASIC METABOLIC PANEL STAT 11/11/2022 3:46 PM EDT HEMOGLOBIN A1C Add-On 11/11/2022 3:46 PM EDT [...] 5.6 % 11/14/2022 2:57 PM EDT PREFERRED [facility], [facility] Est. Avg Glucose 148 mg/dL 11/14/2022 2:57 PM EDT [facility] Blood VENOUS BLOOD / Unknown Venipuncture / Unknown 11/11/2022 3:46 PM EDT 11/11/2022 3:55 PM EDT Narrative [facility] [employer] [facility] - 11/14/2022 2:57 PM EDT REFERENCE RANGE: Normal: 4.0-5.6% Pre-diabetes: 5.7-6.4% Provisional diagnosis of diabetes: >6.4% Hgb F>10% and anything which shortens red cell survival, such as hemolytic anemia, or unstable hemoglobin variants such as HbSS, HbSC, or HbCC, will lower the HbA1c value associated with a given level of glycemic control. us Lexi Maloney DO CHEMISTRY ORDERABLES Final R esult [facility] [employer] [facility] [address] [facility] , [place] [address] * (ABNORMAL) BASIC METABOLIC PANEL (11/11/2022 3:46 PM EDT) Sodium 136 136 - 145 mmol/L 11/11/2022 4:11 PM EDT [facility] Potassium 3.8 3.5 - 5.0 mmol/L 11/11/2022 4:11 PM EDT [facility] Chloride 102 98 - 107 mmol/L 11/11/2022 4:11 PM EDT [facility] Total CO2 24 22 - 29 mmol/L 11/11/2022 4:11 PM EDT [facility] Anion Gap 10 7 - 16 mmol/L 11/11/2022 4:11 PM EDT [facility] Calcium 10.1 8.8 - 10.4 mg/dL 11/11/2022 4:11 PM EDT [facility] Glucose Lvl 147(H) 82 - 100 mg/dL 11/11/2022 4:11 PM EDT [facility] BUN 15 8 - 23 mg/dL 11/11/2022 4:11 PM EDT [facility] Creatinine 0.82 0.51 - 1.30 mg/dL 11/11/2022 4:11 PM EDT [facility] eGFR (CKD-EPIcr 2020) 76 >=60 mL/min/1.7 3 m2 11/11/2022 4:11 PM EDT [facility] Comment:Estimated GFR was ca lculated using the CKD-EPIcr (2020) equation refit without race. The equation is recommended by the National Kidney Foundation - [place] [employer] of Nephrology Task Force. Blood VENOUS BLOOD / Unknown Venipuncture / Unknown 11/11/2022 3:46 PM EDT 11/11/2022 3:54 PM EDT us Leona Hanna DO CHEMISTRY ORDERABLES Final Res ult [facility] [address] [place] [address] * DX BONE DENSITY AXIAL SKELETON (07/25/2022 9:14 AM EDT) Anatomical Region Laterality Modality Dexa Scan 07/25/2022 Narrative 07/25/2022 3:45 PM EDT Indication: The patient is a female age 65 or older who requires a bone density assessment. Study was performed on [employer] 5. Bone Density: Region BMD T-score Z-score [...] Most Recently Relevant to Health Maintenance Insurance [place] [address] MEDICARE SUPPLEMENT MEDICARE [place] PART A AND B Member Subscriber Plan / Payer (Ef fective 2016-Present) Name:Ashly Hernández Member ID:[id number] Relation to Subscriber:Self Name:Ashly Hernández Subscriber ID:[id number] Payer ID:Not on file Group ID:Not on file Type:Not on file Address: [address] MEDICARE SUPPLE[place]ARE [place] [address] [phone] MEDICARE [place] PART A AND B Member Subscriber Plan / Payer (Ef fective 2016-Present) Name:Ashly Hernández Member ID:[id number] Relation to Subscriber:Self Name:Ashly Hernández Subscriber ID:[id number] Payer ID:Not on file Group ID:Not on file Type:Not on file Address: [address] MEDICARE SUPPLEMENT [employer] MEDICARE [place] PART A AND B [address] MEDICARE SUPPLEMENT Advance Directives For more information, please contact: [phone] * Full Code (Latest Code Status on File) Date Activated Date Inactivated Comments 11/14/2022 6:53 PM 11/16/2022 7:37 PM * Full Code Date Activated Date Inactivated Comments 11/12/2022 5:17 AM 11/14/2022 6:47 PM Care Teams Tin Whiz Machine Operator Relationship Specialty Start Date End Date Jevon Vazquez MD [address] [place] [address] PCP - General Family Medicine 11/10/22
--- OUTSIDE RECORDS SUMMARY | 2024-09-30 13:37 | XMS_ITS | Clinical Summary ---
Author Organization [facility] Address [address] [place] [address] Care Team Providers Care Mid Level Clinician Name Role Phone Jevon Vazquez MD Primary Care Provider [phone] Allergies No known active allergies Medications amLODIPine [...] Active Additional Information Patient not taking.Reported on 09/30/2024 prochlorperazi ne (Compazine) 10 MG tabletIndicati ons:Acute [...] Active Additional Information Patient not taking.Reported on 09/30/2024 rosuvastatin (Crestor) 5 MG tablet TAKE 1 [...] Encounters Date Type Department Care Team Description 09/30/2024 9:30 AM EDT Office Visit [facility] H[facility]ology[facility]BMT and Cellular Therapy Program [address] [place] [phone] Zonia Hoffman APRN 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) 09/30/2024 9:00 AM EDT Clinical Support [facility] [address] [place] [phone] Jyoti Kemp 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) 09/30/2024 Telephone [facility] [address] [place] [phone] Zoraida Good RN 09/30/2024 Travel 09/29/2024 Travel 09/28/2024 Travel 09/27/2024 Travel 09/26/2024 Travel 09/25/2024 Travel 09/24/2024 Travel 09/23/2024 Travel 09/19/2024 12:00 PM EDT Procedure Visit [facility] Therapy [facility] [address] [place] [phone] Lexi Ferraro, MILITARY SCIENCE INSTRUCTOR 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) 09/19/2024 9:30 AM EDT Clinical Support [facility] [address] [facility], 2nd [place] [phone] 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) 09/19/2024 7:30 AM EDT Clinical Support [facility] H[facility]ology/BMT and Cellular Therapy Program [address] [place] [phone] 09/19/2024 Telephone [facility] Cellular Therapy Program [address] [phone] Romana Richmond, AKBAR 09/19/2024 Orders Only [facility] Cellular Therapy [facility] [address] [phone] 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, RN 09/19/2024 Travel 09/15/2024 Telephone [facility] Cellular Therapy [facility] [address] [phone] Zonia Hoffman, MILITARY SCIENCE INSTRUCTOR 09/15/2024 Travel 09/14/2024 Travel 09/13/2024 Travel 09/12/2024 Travel 09/12/2024 Refill [facility] Therapy [facility] [address] [phone] New Mckinney MD 09/11/2024 Travel 09/10/2024 Travel 09/01/2024 Telephone [facility] Therapy [facility] [address] [phone] Zonia Hoffman, MILITARY SCIENCE INSTRUCTOR 08/31/2024 Travel 08/30/2024 Travel 08/18/2024 Telephone [facility] Cellular Therapy [facility] [address] [place] [phone] Romana Gorman, MILITARY SCIENCE INSTRUCTOR 08/17/2024 Travel 08/16/2024 Travel 08/15/2024 Travel 08/13/2024 Travel 07/30/2024 8:30 AM EDT Office Visit [facility] Cellular Therapy [facility] [address] [phone] Zonia Hoffman, MILITARY SCIENCE INSTRUCTOR Pancytopenia (Primary Dx) 07/30/2024 8:00 AM EDT Clinical Support [facility] Therapy [facility] [address] [phone] Pancytopenia 07/30/2024 Telephone [facility] Cellular Therapy [facility] [address] [place] [phone] Romana Richmond RN 07/30/2024 Refill [facility] Cellular Therapy [facility] [address] [place] [phone] Daxa Elliott, general service technician 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); Immunosuppressed status (CMS/HCC) 07/30/2024 Travel 07/29/2024 Travel 07/28/2024 Travel 07/27/2024 Travel 07/26/2024 Travel 07/24/2024 Travel 07/23/2024 Travel 07/19/2024 Refill [facility]BMT [facility] Cellular Therapy Program [address] [phone] Zonia Hoffman, MILITARY SCIENCE INSTRUCTOR 07/16/2024 9:00 AM EDT Office Visit [facility] Cellular Therapy [facility] [address] [place] [phone] Zonia Hoffman, MILITARY SCIENCE INSTRUCTOR Pancytopenia (Primary Dx); 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) 07/16/2024 8:30 AM EDT Clinical Support [facility] Cellular Therapy [facility] [address] [phone] 07/16/2024 Travel 07/15/2024 Travel 07/15/2024 Telephone [facility] Cellular Therapy [facility] [address] [place] [phone] Zonia Hoffman, MILITARY SCIENCE INSTRUCTOR 07/14/2024 Travel 07/13/2024 Travel 07/12/2024 Travel 07/11/2024 Travel 07/10/2024 Travel 07/09/2024 Travel 07/01/2024 Travel 06/30/2024 Travel from Last 3 Months Immunizations Immunization [...] 12.7 oz) 09/30/2024 9:30 AM EDT Height 162.6 cm (5' 4.02 ) 09/19/2024 8:03 AM ED T Body Mass Index 21.07 09/19/2024 8:03 AM EDT Plan of Treatment Upcoming Encounters Date Type Department Care Team ([facility] st Contact Info) Description 10/14/2024 11:00 AM EDT Clinical Support [facility]BMT and Cellular Therapy Program [address] [facility] [place] [phone] 10/14/2024 11:30 AM EDT Office Visit [facility] Hematology/BMT and Cellular Therapy Program [address] [facility] [place] [phone] Zonia Hoffman, MILITARY SCIENCE INSTRUCTOR [address] [facility] [address] [place] [phone] Health Maintenance Due Date Last Done Comments [...] UKY-Zoster Vaccines (1 of 2) 05/16/2023 03/21/2023 [id number] Vaccine ( season) 2023 02/18/2021, 07/10/2020, 06/12/2020 [...] this topic Medical Devices Implanted Type Area Payment Specialist Device Identifier Shelf Expiration Date Model / Serial / Lot Port Clearvue Power 8fr - [id number] Implanted:Qty: 1 on 01/21/2024 [id number] / / Procedures Procedure Name Priority Date/Time Associated Diagnosis Comments COMPREHENSIVE METABOLIC PANEL, PLASMA Routine 09/30/2024 9:11 AM EDT 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 WBC Count 3.34(L) 3.70 - 10.30 10*3/uL LAB HEMATOLOGY METHOD 09/30/2024 11:07 AM EDT [facility] RBC Count 1.91(L) 3.90 - 5.20 10*6/uL LAB HEMATOLOGY METHOD 09/30/2024 11:07 AM EDT [facility] HGB 7.7(L) 11.2 - 15.7 g/dL LAB HEMATOLOGY METHOD 09/30/2024 11:07 AM EDT [facility] HCT 22.8(L) 34.0 - 45.0 % LAB HEMATOLOGY METHOD 09/30/2024 11:07 AM EDT [facility] Platelet Count 17(LL) 155 - 369 10*3/uL LAB HEMATOLOGY METHOD 09/30/2024 11:07 AM EDT [facility] MCV 119(H) 79 - 98 fL LAB HEMATOLOGY METHOD 09/30/2024 11:07 AM EDT [facility] MCH 40.3(H) 26.0 - 32.0 pg LAB HEMATOLOGY METHOD 09/30/2024 11:07 AM EDT [facility] MCHC 33.8 30.7 - 35.5 g/dL LAB HEMATOLOGY METHOD 09/30/2024 11:07 AM EDT [facility] RDW 18.7(H) 11.5 - 14.5 % LAB HEMATOLOGY METHOD 09/30/2024 11:07 AM EDT [facility] MPV 11.1 8.8 - 12.5 fL LAB HEMATOLOGY METHOD 09/30/2024 11:07 AM EDT [facility] nRBC 0.0 <=0.0 per 100 WBCs LAB HEMATOLOGY METHOD 09/30/2024 11:07 AM EDT [facility] Differential Type Automated LAB HEMATOLOGY METHOD 09/30/2024 11:07 AM EDT [facility] Neutrophils % 65 % LAB HEMATOLOGY METHOD 09/30/2024 11:07 AM EDT [facility] Lymphocytes % 26 % LAB HEMATOLOGY METHOD 09/30/2024 11:07 AM EDT [facility] Monocytes % 7 % LAB HEMATOLOGY METHOD 09/30/2024 11:07 AM EDT [facility] Eosinophils % 1 % LAB HEMATOLOGY METHOD 09/30/2024 11:07 AM EDT [facility] Basophils % 1 % LAB HEMATOLOGY METHOD 09/30/2024 11:07 AM EDT [facility] Immature Granulocytes % 0 % LAB HEMATOLOGY METHOD 09/30/2024 11:07 AM EDT [facility] Neutrophils Absolute 2.17 1.60 - 6.10 10*3/uL LAB HEMATOLOGY METHOD 09/30/2024 11:07 AM EDT [facility] Lymphocytes Absolute 0.87(L) 1.20 - 3.90 10*3/uL LAB HEMATOLOGY METHOD 09/30/2024 11:07 AM EDT [facility] Monocytes Absolute 0.24(L) 0.30 - 0.90 10*3/uL LAB HEMATOLOGY METHOD 09/30/2024 11:07 AM EDT [facility] Eosinophils Absolute 0.03 0.00 - 0.50 10*3/uL LAB HEMATOLOGY METHOD 09/30/2024 11:07 AM EDT [facility] Basophils Absolute 0.02 0.00 - 0.10 10*3/uL LAB HEMATOLOGY METHOD 09/30/2024 11:07 AM EDT [facility] Immature Granulocytes Absolute 0.01 0.00 - 0.06 10*3/uL LAB HEMATOLOGY METHOD 09/30/2024 11:07 AM EDT [facility] Blood Venous blood specimen / Unknown (Port) Long-term Catheter / Unknown 09/30/2024 9:11 AM EDT 09/30/2024 9:34 AM EDT Narrative [facility] - 09/30/2024 11:07 AM EDT Therapeutic decision making should be based on absolute values, rather than percentages. us Zonia Hoffman APRN LAB BLOOD ORDERABLES Final Res ult [facility] [address] [place] [address] * (ABNORMAL) Comprehensive Metabolic Panel, Plasma (09/30/2024 9:11 AM EDT) Only the most recent of3 resultswithin the time period is included. Glucose, Plasma 135(H) 74 - 99 mg/dL 09/30/2024 10:20 AM EDT [facility] BUN, Plasma 21 8 - 23 mg/dL 09/30/2024 10:20 AM EDT [facility] Creatinine, Plasma 1.00 0.60 - 1.10 mg/dL 09/30/2024 10:20 AM EDT [facility] BUN/Creatinine Ratio 21 09/30/2024 10:20 AM EDT [facility] Sodium, Plasma 137 136 - 145 mmol/L 09/30/2024 10:20 AM EDT [facility] Potassium, Plasma 3.8 3.6 - 4.9 mmol/L 09/30/2024 10:20 AM EDT [facility] Chloride, Plasma 107 97 - 107 mmol/L 09/30/2024 10:20 AM EDT [facility] CO2, Plasma 22 22 - 29 mmol/L 09/30/2024 10:20 AM EDT [facility] Anion Gap 8 6 - 16 mmol/L 09/30/2024 10:20 AM EDT [facility] Total Calcium, Plasma 9.8 8.9 - 10.2 mg/dL 09/30/2024 10:20 AM EDT [facility] Total Protein 5.9(L) 6.3 - 7.9 g/dL 09/30/2024 10:20 AM EDT [facility] Albumin, Plasma 3.8 3.5 - 5.2 g/dL 09/30/2024 10:20 AM EDT [facility] AST, Plasma 28 10 - 35 U/L 09/30/2024 10:20 AM EDT [facility] ALT, Plasma 14 10 - 35 U/L 09/30/2024 10:20 AM EDT [facility] Alkaline Phosphatase, Plasma 34(L) 46 - 142 U/L 09/30/2024 10:20 AM EDT [facility] Total Bilirubin, Plasma 0.3 0.2 - 1.1 mg/dL 09/30/2024 10:20 AM EDT [facility] eGFRcr 59.6 mL/min/1.7 3m*2 09/30/2024 10:20 AM EDT [facility] Comment:Reported eGFRcr in m L/min/1.73m2 is based the CKD-EPI 2020 equation that does not use a race coefficient. Blood Venous blood specimen / Unknown (Port) Long-term Catheter / Unknown 09/30/2024 9:11 AM EDT 09/30/2024 9:50 AM EDT us Zonia Hoffman MILITARY SCIENCE INSTRUCTOR LAB BLOOD ORDERABLES Final Res ult [facility] [address] [place] [address] * BIOPSY BONE MARROW (09/19/2024 12:00 PM [...] to surronding structures. Alternatives discussed: Delayed treatment [place] protocol: Procedure explained and questions answered to [...] ORDERABLES Final Re sult Performing Organization Address City/[facility] Co de Phone Number [facility] [address] [place] [address] * Transfuse platelets, Irradiated (09/19/2024 10:02 AM EDT) us Lexi Ferraro APRN BLOOD TRANSFUSION ORDERABL ES Final Result * Prepare Leukocyte Reduced Platelets (09/19/2024 9:08 AM EDT) Pathologist [facility] Product Code W4849Y27 CH BLOO D BANK Dispense Status Transfused BLOOD BANK Blood Expiration Date [id number] BLOOD BANK Unit Number [id number] CH B LOOD BANK Product Blood Type 6200 BLOOD BANK Blood Type A+ BLOOD BANK us Provider Not In System BLOOD BANK PRODUCT ORD ERABLES Final Result Performing Organization Address [facility] [[email or web address]] de Phone Number BLOOD BANK [address] [place] [address] * Myeloid Focused Panel, 50 gene (09/19/2024 7:29 AM EDT) Interpretation The following two (2) genes, TP53 and DNMT3A, with persistent variants have been detected in this bone marrow specimen. The variant, p.[id number], in TP53 gene and the variant, p.[id number], in the RUNX 1 gene are not detectable at current cutoff and coverage established in this lab. Gene: TP53 Mutation: c.814G>A; p.Zhq991Sck Allele Frequency (%): 37% (45% Dec 2023) ID: [id number] Gene: DNMT3A Mutation: c.1522delC; p.[id number] 3 Allele Frequency (%): 36% (48% Dec 2023) Additional Details on Mutation Identified: Gene Transcript Genome Chrom Coordinate RefVar DNMT3A [id number] Hg19 2 [id number] delC TP53 [id number] Hg19 17 [id number] G>A 09/29/2024 4:05 PM [facility] Methodology The following 50 [...] Samples are then sequenced on the Illumina [employer] [address] ([employer] [place]). A custom bioinformatics pipeline aligns [...] treatment of hematologic malignancies. 09/29/2024 4:05 PM [facility] Disclaimer This test was developed and its performance characteristics determined by the Clinical Molecular and Genomic Pathology Laboratory at the [facility]. It has not been cleared [...] clinical laboratory testing. 09/29/2024 4:05 PM EDT [facility] Pathologist Signature Reviewed by: Corey Tejada 09/29/2024 4:05 PM EDT [facility] Bone Marrow Specimen from bone marrow obtained by aspiration / Unknown Non-blood Collection / Unknown 09/19/2024 7:29 AM EDT 09/19/2024 12:03 PM EDT New Mckinney MD LAB MOLECULAR DIAGNOSTICS ORD ERABLES Final Result [facility] [address] * Chromosome Karyotype, Oncology (09/19/2024 7:29 AM EDT) Pathologist [facility] Specimen Type Bone Marrow 09/24/2024 2:37 PM EDT [facility] Clinical Indication Myelodysplastic Syndrome 09/24/2024 2:37 PM EDT [facility] Specimen Adequacy Adequate 025 2:37 PM EDT [facility] Chromosome Analysis Result Giemsa-banded metaphase cells from unstimulated bone marrow cultures showed a 46,XX[20] chromosome pattern. 09/24/2024 2:37 PM EDT [facility] Interpretation Normal female chromosome analysis. No clonal abnormalities were detected at current resolution. Clinical correlation is recommended. # cells counted = 20 # cells analyzed = 20 # cells karyotyped = 2 Band resolution: 450-525 09/24/2024 2:37 PM EDT [facility] Pathologist Signature Reviewed by: Corey Tejada 09/24/2024 2:37 PM EDT [facility] Bone Marrow Non-blood Collection / Unknown 09/19/2024 7:29 AM EDT 09/19/2024 12:35 PM EDT New Mckinney MD LAB CYTOGENETICS ORDERABLES F inal Result [facility] [address] [place] [address] * Leukemia/Lymphoma - Immunophenotyping by Flow Cytometry (09/19/2024 7:29 AM EDT) Clinical Indication AML 09/22/2024 10:29 AM [facility] Flow Cytometry Interpretation A. BONE MARROW FOR FLOW CYTOMETRY: - MIXED MARROW ELEMENTS WITH NO EVIDENCE OF INCREASED BLASTS OR ABNORMAL LYMPHOID POPULATIONS, SEE COMMENT. 09/22/2024 10:29 AM [facility] Comments CD45/side scatter analysis [...] lambda surface light chains 09/22/2024 10:29 AM [facility] Disclaimer This test was developed and its performance characteristics determined by the Immuno-Molecular Pathology Laboratory at the [facility]. It has not been cleared [...] appears on the report. 09/22/2024 10:29 AM [facility] Pathologist Signature Reviewed by: Lisandra Epstein MD 09/22/2024 10:29 AM [facility] MRD Indicated Test Not Indicated 12/2024 10:29 AM [facility] Bone Marrow Specimen from bone marrow obtained by aspiration / Unknown Non-blood Collection / Unknown 09/19/2024 7:29 AM EDT 09/19/2024 12:13 PM EDT us New Mckinney MD LAB FLOW CYTOMETRY ORDERABLES Final Result [facility] [address] [place] [address] * Bone marrow exam (09/19/2024 7:29 AM EDT) Case Report Bone Marrow Case: [id number] Authorizing Provider: New Mckinney MD Collected: 09/19/2024 0729 Ordering Location: [facility] Hematology/BMT and Received: 09/19/2024 1216 Cellular Therapy Program Pathologist: Lisandra Epstein MD Specimens: A) - Bone Marrow Aspirate, right B) - Bone Marrow Biopsy, right C) - Peripheral Blood for Bone Marrow 4:30 PM EDT [facility] Cytogenetics Report, Addendum Chromosome Analysis Result Giemsa-banded metaphase cells from unstimulated bone marrow cultures showed a 46,XX[20] chromosome pattern. Interpretation Normal female chromosome analysis. No clonal abnormalities were detected at current resolution. Clinical correlation is recommended. 4:30 PM EDT [facility] Addendum electronically signed by Lisandra Epstein MD on 09/24/2024 at 1630 EDT Final Diagnosis PERIPHERAL BLOOD AND BONE MARROW, RIGHT POSTERIOR ILIAC CREST, (ASPIRATE SMEAR, AND CORE BIOPSY): - HYPOCELLULAR BONE MARROW WITH MARKEDLY DECREASED MEGAKARYOCYTES; NO SIGNIFICANT DYSPOIESIS OR INCREASE IN BLASTS. 4:30 PM EDT [facility] at 1453 EDT Clinical Information AML 09/14 4:30 PM EDT [facility] CBC and Differential [...] blasts are not seen. 4:30 PM EDT [facility] Bone Marrow Differential BONE MARROW DIFFERENTIAL: 200 cells Normal Patient Neutrophils 15-50 34 Metamyelocytes 4-19 3 Myelocytes 1-18 10 Promyelocytes 1-8 1 Blasts 0-2 1 Monocytes 0-5 4 Erythroid 16-38 22 Lymphocytes 3-24 13 Eosinophils 0-6 8 Basophils 0-2 0 Plasma cells 0-4 4 Other 4:30 PM EDT [facility] Bone Marrow Aspirate and Biopsy The bone [...] Bone trabeculae are unremarkable. 4:30 PM EDT [facility] Special and Immunohistochemical Stains Special Stain: A1-1 Vazquez-Giemsa A1-2 Vazquez-Giemsa A1-3 Vazquez-Giemsa C1-1 Vazquez-Giemsa IHC: B1-2 CD34 All controls show appropriate reactivity. All immunohistochemis try, in situ hybridization, and histochemical tests were developed by and are performed at the [facility], [address] [place] [address]. All tests reported here, except those addressing [...] negativity on decalcified specimens. 4:30 PM EDT [facility] Flow Cytometry Interpretation MIXED MARROW ELEMENTS WITH NO EVIDENCE OF INCREASED BLASTS OR ABNORMAL LYMPHOID POPULATIONS ([id number]). 4:30 PM EDT [facility] CYTOGENETICS/MOLECULA R INTERPRETATION Correlation with cytogenetic/molec ular analysis is suggested. 4:30 PM EDT [facility] Gross Description B. RIGHT A single specimen is received in formalin labeled bone marrow biopsy right posterior iliac crest and consists of 2 piece(s) of red/white tissue measuring 2.1/0.3 cm in length 0.2 cm in diameter. The specimen is submitted in to Histology for decalcification and routine processing. Cold Time: <1m 4:30 PM EDT [facility] Note: A resident was involved in the service. I attest I examined the relevant preparations for the specimens and confirmed the diagnosis or interpretation. 4:30 PM EDT [facility] Bone Marrow Peripheral [...] PATHOLOGY ORDERABLES Edit ed Result - Final [facility] [address] [place] [address] * Hepatitis C Antibody w/Reflex to HCV Quant PCR (01/07/2024 8:42 AM EDT) Hepatitis C Antibody Negative Negative 01/07/2024 10:13 AM EDT [facility] Blood Venous blood specimen / Unknown Venipuncture / Unknown 01/07/2024 8:42 AM EDT 01/07/2024 9:25 AM EDT us New Mckinney MD LAB BLOOD ORDERABLES Final Re sult [facility] [address] [place] [address] from Last 3 Months or Most Recently Relevant to Health Maintenance [place] [phone] [facility] Care Teams Mid Level Clinician Relationship Specialty Start Date End Date Jevon Vazquez MD [address] [place] [address] #1 #1 [place] [id number] PCP - General 03/23/22
--- OUTSIDE RECORDS SUMMARY | 2024-09-30 13:37 | XMS_ITS | Encounter Summary ---
Author Organization Healthcare Address [address] [place] [address] Care Team Providers Care Child Care Assistant Name Role Phone Jevon Vazquez MD Primary Care Provider [phone] Encounter Details Date Type Department Care Team [...] Hematology/BMT and Cellular Therapy Program [address] [phone] 10/14/2024 11:30 AM EDT Office Visit [facility] Hematology/BMT and Cellular Therapy Program [address] [phone] Zonia Hoffman, HEAVY FORGER [address] [facility] [address] [place] [phone] documented as of this encounter Visit Diagnoses Not on filedocumented in this encounter Additional Health Concerns Assessment Noted Time A fall risk assessment has been complete d for the patient 07/30/2024 8:29 AM EDT A Body Mass Index follow-up plan has been documented for the patient 05/28/2024 1:52 PM EST documented as of this encounter Care Teams Child Care Assistant Relationship Specialty Start Date End Date Jevon Vazquez MD [address] [place] [address] #1 #1 [place] [id number] PCP - General 03/23/22 documented as of this encounter
--- OUTSIDE RECORDS SUMMARY | 2024-09-30 13:37 | XMS_ITS | Clinical Summary ---
Author Organization [facility] Address [address] [place] [address] Care Team Providers Care Data Clerk Name Role Phone David Vazquez Primary Care Provider [phone] Allergies No known active allergies Medications atorvastatin [...] series) 2025 Medical Devices Implanted Type Area Pleater Hand Device Identifier Shelf Expiration Date Model / Serial / Lot Mis Ply Scr 6.5x50mm - [id number] Implanted:Qty : 1 on 01/30/2023 by Ivan Bartholomew MD at [facility] Screw N/A: Spine Lumbar [employer] [id number] / / Mis Ply Scr 6.5x45mm - [id number] Implanted:Qty : 3 on 01/30/2023 by Ivan Bartholomew MD at [facility] Screw N/A: Spine Lumbar [employer] [id number] / / Reline Mas Reduction Screw 7.5x45 - [id number] Implanted:Qty : 2 on 01/30/2023 by Ivan Bartholomew MD at [facility] Screw N/A: Spine Lumbar [employer] [id number] / / Grft Dbm Vesuvius Putty 5cc - [id number] Implanted:Qty : 1 on 01/30/2023 by Ivan Bartholomew MD at [facility] [employer] [id number] 04/20/2025 [id number] P / [id number] / Putty I-Factor 5.0cc - [id number] Implanted:Qty : 1 on 01/30/2023 by Ivan Bartholomew MD at [facility] N/A: Spine Lumbar [employer] 03/15/2025 [id number] / / [id number] Modulus Xlw [id number] 10 Degree - [id number] Implanted:Qty : 1 on 01/30/2023 by Ivan Bartholomew MD at [facility] N/A: Spine Lumbar [employer] [id number] / / [id number] Modulus Xlw [id number] - [id number] Implanted:Qty : 1 on 01/30/2023 by Ivan Bartholomew MD at [facility] N/A: Spine Lumbar [employer] 09/28/2027 [id number] / / [id number] Reln Lock Scr 5.5mm Opn Tulip - [id number] Implanted:Qty : 6 on 01/30/2023 by Ivan Bartholomew MD at [facility] N/A: Spine Lumbar [employer] [id number] / / Reln Mas Ti Petar 5.5x70mm - [id number] Implanted:Qty : 2 on 01/30/2023 by Ivan Bartholomew MD at [facility] N/A: Spine Lumbar [employer] [id number] / / Procedures Procedure Name Priority Date/Time [...] Hgb A1C 6.0(H) 4.0 - 5.6 % [facility] Comment: Reference Ranges [...] Standardization program (NGSP) and [facility] Estimated Average Glucose 126(H) 68 - 114 mg/dL [facility] Whole Blood (Blood) 01/24/2023 2:32 PM EDT 01/24/2023 6:00 PM EDT us Ivan Bartholomew MD CHEMISTRY ORDERABLES Fin al Result [facility] [address] * (ABNORMAL) BASIC METABOLIC PANEL (BMP=EP1) (01/24/2023 2:32 PM EDT) Sodium 141 135 - 146 mmol/L [facility] Potassium 4.8 3.5 - 5.1 mmol/L [facility] Chloride 107 98 - 110 mmol/L [facility] CO2 24 22 - 29 mmol/L [facility] Anion Gap 10 5 - 13 mmol/L [facility] Comment:Anion gap calculatio n does not include potassium (K+) value. BUN 17 7 - 25 mg/dL [facility] Creatinine 1.20 0.50 - 1.20 mg/dL [facility] Glucose 125(H) 71 - 99 mg/dL [facility] Comment:Reference range (71- 99 mg/dL) refers only to fasting samples, and does not apply to non-fasting samples. eGFR CKD-EPI 2020 48 See Note [facility] Comment: eGFR calculated with 2020 CKD-EPI equation using creatinine, patient's age and gender. Other factors, especially muscle mass, may affect accuracy and need to be considered. Patient values should be interpreted as a trend. The reference interval is >60 mL/min/1.73m2. Calcium 10.3 8.5 - 10.5 mg/dL [facility] BUN/Creatinine Ratio 14 [facility] Serum 01/24/2023 2:32 PM EDT 01/24/2023 5:54 PM EDT us Lexi SUAREZ CHEMISTRY ORDERABLES Final Resu lt [facility] [address] from Last 3 Months or Most Recently Relevant to Health Maintenance Insurance MEDICARE PART A [facility] [address] [address] [place] [address] ANTH Advance Directives For more information, please contact: [phone] * Full Code (Latest Code Status on File) Date Activated Date Inactivated Comments 01/30/2023 9:13 AM No automated chest compression devices for [facility] Patients Care Teams Data Clerk Relationship Specialty Start Date End Date David Vazquez [address] [place] [phone] PCP - General 01/24/23
--- OUTSIDE RECORDS SUMMARY | 2024-09-30 13:37 | XMS_ITS | Encounter Summary ---
Author Organization [facility] Address [address] [place] [address] Care Team Providers Care Banquet Waiter/Waitress Name Role Phone Jevon Vazquez MD Primary Care Provider [phone] Reason for Visit * Reason Comments Med Refill Encounter Details Date Type Department Care Team ([facility] Contact Info) Description 09/12/2024 Refill [facility] Hematology/BMT and Cellular Therapy Program [address] [phone] [place] MD 800 [facility] [address] [place] [phone] Social History Tobacco Use Types Packs/Day Years [...] Upcoming Encounters Date Type Department Care Team ([facility] Contact Info) Description 10/14/2024 11:00 AM EDT Clinical Support [facility] Hematology/BMT and Cellular Therapy Program [address] [phone] 10/14/2024 11:30 AM EDT Office Visit [facility] Hematology/BMT and Cellular Therapy Program [address] [phone] Zonia Hoffman, VET ASSISTANT [facility] [address] [place] [address] documented as of this encounter Visit Diagnoses Not on filedocumented in this encounter Additional Health Concerns Assessment Noted Time A fall risk assessment has been complete d for the patient 07/30/2024 8:29 AM EDT A Body Mass Index follow-up plan has been documented for the patient 05/28/2024 1:52 PM EST documented as of this encounter Care Teams Banquet Waiter/Waitress Relationship Specialty Start Date End Date Jevon Vazquez MD [address] [place] [address] [address] [place] [address] PCP - General 03/23/22 documented as of this encounter
--- OUTSIDE RECORDS SUMMARY | 2024-09-30 13:37 | XMS_ITS | Encounter Summary ---
Author Organization [facility] Address [address] [place] [address] Care Team Providers Care Bakery Decorator Name Role Phone Jevon Vazquez MD Primary Care Provider [phone] Encounter Details Date Type Department Care Team [...] Hematology/BMT and Cellular Therapy Program [address] [phone] 10/14/2024 11:30 AM EDT Office Visit [facility] Hematology/BMT and Cellular Therapy Program [address] [phone] Zonia Hoffman, OPERATIONS INTELLIGENCE SUPERINTENDENT 800 [facility] [address] [place] [phone] documented as of this encounter Visit Diagnoses Not on filedocumented in this encounter Additional Health Concerns Assessment Noted Time A fall risk assessment has been complete d for the patient 07/30/2024 8:29 AM EDT A Body Mass Index follow-up plan has been documented for the patient 05/28/2024 1:52 PM EST documented as of this encounter Care Teams Bakery Decorator Relationship Specialty Start Date End Date Jevon Vazquez MD [address] [place] [address] [address] [place] [address] PCP - General 03/23/22 documented as of this encounter
--- OUTSIDE RECORDS SUMMARY | 2024-09-30 13:37 | XMS_ITS | Encounter Summary ---
Author Organization Healthcare Address [address] [place] [address] Care Team Providers Care Cemetery Laborer Name Role Phone Jevon Vazquez MD Primary Care Provider [phone] Encounter Details Date Type Department Care Team (Late Contact Info) Description 09/30/2024 Telephone [facility] Hematology/BMT and Cellular Therapy Program [address] [place] [address] Zoraida Good, RN [facility] Social History Tobacco Use [...] as of this encounter Miscellaneous Notes * Clinician Note - Zoraida Good RN - 09/30/2024 11:42 AM EDT Critical Lab Results Facility: Lab Primary Oncologist: Zonia Hoffman APRN Notified Primary Onc RN: Shelly Pollock RN Lab Value Action Taken PLT 17 N/A documented in this encounter Plan of Treatment Upcoming Encounters Date Type Department Care Team (Late Contact Info) Description 10/14/2024 11:00 AM EDT Clinical Support [facility] Hematology/BMT and Cellular Therapy Program [address] [place] [address] 10/14/2024 11:30 AM EDT Office Visit [facility] Hematology/BMT and Cellular Therapy Program [address] [place] [phone] Zonia Hoffman, OPERATIONAL REVIEW SERGEANT 800 [facility] [address] [place] [phone] documented as of this encounter Visit Diagnoses Not on filedocumented in this encounter Additional Health Concerns Assessment Noted Time A fall risk assessment has been complete d for the patient 09/30/2024 9:33 AM EDT A Body Mass Index follow-up plan has been documented for the patient 05/28/2024 1:52 PM EST documented as of this encounter Care Teams Cemetery Laborer Relationship Specialty Start Date End Date Jevon Vazquez MD [address] [place] [address] [address] [place] [address] PCP - General 03/23/22 documented as of this encounter
--- OUTSIDE RECORDS SUMMARY | 2024-09-30 13:37 | XMS_ITS | Encounter Summary ---
Author Organization Healthcare Address [address] [place] [address] Care Team Providers Care Certified Court/Medical Interpreter Name Role Phone Jevon Vazquez MD Primary Care Provider [phone] Encounter Details Date Type Department Care Team ([facility] st Contact Info) Description 07/15/2024 Telephone [facility] Hematology/BMT and Cellular Therapy Program [address] [phone] Zonia Hoffman, WINDMILL MECHANIC 800 [facility] [address] [place] [phone] Social History Tobacco Use Types Packs/Day Years [...] Reason for Call: Per PT call to [facility], needs Dalton appt clarity, asking to have Jorge from clinical care team. Best contact number and optimal time of day to reach caller: [phone] Note: Please do not reply to this [...] Upcoming Encounters Date Type Department Care Team ([facility] st Contact Info) Description 10/14/2024 11:00 AM EDT Clinical Support [facility] Hematology/BMT and Cellular Therapy Program [address] [place] [phone] 10/14/2024 11:30 AM EDT Office Visit [facility] Hematology/BMT and Cellular Therapy Program [address] [place] [phone] Zonia Hoffman, WINDMILL MECHANIC 800 [facility] [address] [place] [phone] documented as of this encounter Visit Diagnoses Not on filedocumented in this encounter Additional Health Concerns Assessment Noted Time A fall risk assessment has been complete d for the patient 06/18/2024 10:22 AM EST A Body Mass Index follow-up plan has been documented for the patient 05/28/2024 1:52 PM EST documented as of this encounter Care Teams Certified Court/Medical Interpreter Relationship Specialty Start Date End Date Jevon Vazquez MD [address] [place] [address] [address]1 [address] [place] [address] PCP - General 03/23/22 documented as of this encounter
--- OUTSIDE RECORDS SUMMARY | 2024-09-30 13:37 | XMS_ITS | Encounter Summary ---
Author Organization Healthcare Address [address] [place] [address] Care Team Providers Care Closing Specialist Name Role Phone Jevon Vazquez MD Primary Care Provider [phone] Encounter Details Date Type Department Care Team [...] Hematology/BMT and Cellular Therapy Program [address] [phone] 10/14/2024 11:30 AM EDT Office Visit [facility] Hematology/BMT and Cellular Therapy Program [address] [phone] Zonia Hoffman, VOLUNTEER FIREFIGHTER 800 [facility] [address] [place] [phone] documented as of this encounter Visit Diagnoses Not on filedocumented in this encounter Additional Health Concerns Assessment Noted Time A fall risk assessment has been complete d for the patient 07/30/2024 8:29 AM EDT A Body Mass Index follow-up plan has been documented for the patient 05/28/2024 1:52 PM EST documented as of this encounter Care Teams Closing Specialist Relationship Specialty Start Date End Date Jevon Vazquez MD [address] [place] [address] #1 [address]1 [place] [address] PCP - General 03/23/22 documented as of this encounter
--- OUTSIDE RECORDS SUMMARY | 2024-09-30 13:37 | XMS_ITS | Encounter Summary ---
Author Organization Healthcare Address [address] [place] [address] Care Team Providers Care Knitting Supervisor Name Role Phone Jevon Vazquez MD Primary Care Provider [phone] Encounter Details Date Type Department Care Team [...] Hematology/BMT and Cellular Therapy Program [address] [phone] 10/14/2024 11:30 AM EDT Office Visit [facility] Hematology/BMT and Cellular Therapy Program [address] [phone] Zonia Hoffman, SURGICAL INSTRUMENT MAKER 800 [facility] [address] [place] [phone] documented as of this encounter Visit Diagnoses Not on filedocumented in this encounter Additional Health Concerns Assessment Noted Time A fall risk assessment has been complete d for the patient 07/30/2024 8:29 AM EDT A Body Mass Index follow-up plan has been documented for the patient 05/28/2024 1:52 PM EST documented as of this encounter Care Teams Knitting Supervisor Relationship Specialty Start Date End Date Jevon Vazquez MD [address] [place] [address] [address]1 [address] [place] [address] PCP - General 03/23/22 documented as of this encounter
--- OUTSIDE RECORDS SUMMARY | 2024-09-30 13:37 | XMS_ITS | Encounter Summary ---
Author Organization Healthcare Address [address] [place] [address] Care Team Providers Care Tension Worker Name Role Phone Jevon Vazquez MD Primary Care Provider [phone] Encounter Details Date Type Department Care Team (Latest Contact Info) Description 09/29/2024 Travel Social History Tobacco Use Types Packs/Day [...] Hematology/BMT and Cellular Therapy Program [address] [phone] 10/14/2024 11:30 AM EDT Office Visit [facility] Hematology/BMT and Cellular Therapy Program [address] [phone] Zonia Hoffman, WATER SOFTENER SERVICER AND INSTALLER 800 [facility] [address] [place] [phone] documented as of this encounter Visit Diagnoses Not on filedocumented in this encounter Additional Health Concerns Assessment Noted Time A fall risk assessment has been complete d for the patient 09/19/2024 8:38 AM EDT A Body Mass Index follow-up plan has been documented for the patient 05/28/2024 1:52 PM EST documented as of this encounter Care Teams Tension Worker Relationship Specialty Start Date End Date Jevon Vazquez MD [address] [place] [address] [address]1 [address]1 [place] [address] PCP - General 03/23/22 documented as of this encounter
--- OUTSIDE RECORDS SUMMARY | 2024-09-30 13:37 | XMS_ITS | Encounter Summary ---
Author Organization Healthcare Address [address] [place] [address] Care Team Providers Care Distributor Operator Name Role Phone Jevon Vazquez MD Primary Care Provider [phone] Encounter Details Date Type Department Care Team [...] Hematology/BMT and Cellular Therapy Program [address] [phone] 10/14/2024 11:30 AM EDT Office Visit [facility] Hematology/BMT and Cellular Therapy Program [address] [phone] Zonia Hoffman, HEAD COACH 800 [facility] [address] [place] [phone] documented as of this encounter Visit Diagnoses Not on filedocumented in this encounter Additional Health Concerns Assessment Noted Time A fall risk assessment has been complete d for the patient 07/30/2024 8:29 AM EDT A Body Mass Index follow-up plan has been documented for the patient 05/28/2024 1:52 PM EST documented as of this encounter Care Teams Distributor Operator Relationship Specialty Start Date End Date Jevon Vazquez MD [address] [place] [address] #1 [address]1 [place] [address] PCP - General 03/23/22 documented as of this encounter
--- OUTSIDE RECORDS SUMMARY | 2024-09-30 13:37 | XMS_ITS | Encounter Summary ---
Author Organization Healthcare Address [address] [place] [address] Care Team Providers Care Guest Laundry Attendant Name Role Phone Jevon Vazquez MD Primary Care Provider [phone] Encounter Details Date Type Department Care Team [...] Hematology/BMT and Cellular Therapy Program [address] [phone] 10/14/2024 11:30 AM EDT Office Visit [facility] Hematology/BMT and Cellular Therapy Program [address] [phone] Zonia Hoffman, FREIGHT ELEVATOR OPERATOR 800 [facility] [address] [place] [phone] documented as of this encounter Visit Diagnoses Not on filedocumented in this encounter Additional Health Concerns Assessment Noted Time A fall risk assessment has been complete d for the patient 07/30/2024 8:29 AM EDT A Body Mass Index follow-up plan has been documented for the patient 05/28/2024 1:52 PM EST documented as of this encounter Care Teams Guest Laundry Attendant Relationship Specialty Start Date End Date Jevon Vazquez MD [address] [place] [address] #1 [address]1 [place] [address] PCP - General 03/23/22 documented as of this encounter
--- OUTSIDE RECORDS SUMMARY | 2024-09-30 13:37 | XMS_ITS | Encounter Summary ---
Author Organization Healthcare Address [address] [place] [address] Care Team Providers Care Pharmacy Retail Support Specialist Name Role Phone Jevon Vazquez MD Primary Care Provider [phone] Encounter Details Date Type Department Care Team (Latest Contact Info) Description 09/30/2024 Travel Social History Tobacco Use Types Packs/Day [...] Hematology/BMT and Cellular Therapy Program [address] [phone] 10/14/2024 11:30 AM EDT Office Visit [facility] Hematology/BMT and Cellular Therapy Program [address] [phone] Zonia Hoffman, SOIL SAMPLER 800 [facility] [address] [place] [phone] documented as of this encounter Visit Diagnoses Not on filedocumented in this encounter Additional Health Concerns Assessment Noted Time A fall risk assessment has been complete d for the patient 09/30/2024 9:33 AM EDT A Body Mass Index follow-up plan has been documented for the patient 05/28/2024 1:52 PM EST documented as of this encounter Care Teams Pharmacy Retail Support Specialist Relationship Specialty Start Date End Date Jevon Vazquez MD [address] [place] [address] #1 [address]1 [place] [address] PCP - General 03/23/22 documented as of this encounter
--- OUTSIDE RECORDS SUMMARY | 2024-09-30 13:37 | XMS_ITS | Encounter Summary ---
Author Organization Healthcare Address [address] [place] [address] Care Team Providers Care Mobile Homes Repairer Name Role Phone Jevon Vazquez MD Primary Care Provider [phone] Encounter Details Date Type Department Care Team [...] Hematology/BMT and Cellular Therapy Program [address] [phone] 10/14/2024 11:30 AM EDT Office Visit [facility] Hematology/BMT and Cellular Therapy Program [address] [phone] Zonia Hoffman, GAS DERRICK OPERATOR 800 [facility] [address] [place] [phone] documented as of this encounter Visit Diagnoses Not on filedocumented in this encounter Additional Health Concerns Assessment Noted Time A fall risk assessment has been complete d for the patient 09/19/2024 8:38 AM EDT A Body Mass Index follow-up plan has been documented for the patient 05/28/2024 1:52 PM EST documented as of this encounter Care Teams Mobile Homes Repairer Relationship Specialty Start Date End Date Jevon Vazquez MD [address] [place] [address] #1 [address]1 [place] [address] PCP - General 03/23/22 documented as of this encounter
--- OUTSIDE RECORDS SUMMARY | 2024-09-30 13:37 | XMS_ITS | Encounter Summary ---
Author Organization Healthcare Address [address] [place] [address] Care Team Providers Care Procurement Manager Name Role Phone Jevon Vazquez MD Primary Care Provider [phone] Encounter Details Date Type Department Care Team ([facility] st Contact Info) Description 09/01/2024 Telephone [facility] Hematology/BMT and Cellular Therapy Program [address] [phone] Zonia Hoffman, CREDIT OFFICER 800 [facility] [address] [place] [phone] Social History Tobacco Use Types Packs/Day Years [...] told her to cancel. Please confirm Callback number:[phone] documented in this encounter Plan of Treatment Upcoming Encounters Date Type Department Care Team (Late st Contact Info) Description 10/14/2024 11:00 AM EDT Clinical Support [facility] Hematology/BMT and Cellular Therapy Program [address] [phone] 10/14/2024 11:30 AM EDT Office Visit [facility] Hematology/BMT and Cellular Therapy Program [address] [address] Zonia Hoffman, CREDIT OFFICER 800 [facility] [address] [place] [phone] documented as of this encounter Visit Diagnoses Not on filedocumented in this encounter Additional Health Concerns Assessment Noted Time A fall risk assessment has been complete d for the patient 07/30/2024 8:29 AM EDT A Body Mass Index follow-up plan has been documented for the patient 05/28/2024 1:52 PM EST documented as of this encounter Care Teams Procurement Manager Relationship Specialty Start Date End Date Jevon aVzquez MD [address] [place] [address] #1 #1 [place] [address] PCP - General 03/23/22 documented as of this encounter
--- OUTSIDE RECORDS SUMMARY | 2024-09-30 13:37 | XMS_ITS | Encounter Summary ---
Author Organization Healthcare Address [address] [place] [address] Care Team Providers Care Linseed Oil Boiler Name Role Phone Jevon Vazquez MD Primary Care Provider [phone] Encounter Details Date Type Department Care Team [...] Hematology/BMT and Cellular Therapy Program [address] [phone] 10/14/2024 11:30 AM EDT Office Visit [facility] Hematology/BMT and Cellular Therapy Program [address] [phone] Zonia Hoffman, YARN HANDLER 800 [facility] [address] [place] [phone] documented as of this encounter Visit Diagnoses Not on filedocumented in this encounter Additional Health Concerns Assessment Noted Time A fall risk assessment has been complete d for the patient 07/30/2024 8:29 AM EDT A Body Mass Index follow-up plan has been documented for the patient 05/28/2024 1:52 PM EST documented as of this encounter Care Teams Linseed Oil Boiler Relationship Specialty Start Date End Date Jevon Vazquez MD [address] [place] [address] #1 #1 [place] [address] PCP - General 03/23/22 documented as of this encounter
--- OUTSIDE RECORDS SUMMARY | 2024-09-30 13:37 | XMS_ITS | Encounter Summary ---
Author Organization Healthcare Address [address] [place] [address] Care Team Providers Care Mental Retardation Aide Name Role Phone Jevon Vazquez MD Primary Care Provider [phone] Encounter Details Date Type Department Care Team [...] Hematology/BMT and Cellular Therapy Program [address] [address] 10/14/2024 11:30 AM EDT Office Visit [facility] Hematology/BMT and Cellular Therapy Program [address] [address] Zonia Hoffman, ROOFING TECHNICIAN 800 [facility] [address] [place] [phone] documented as of this encounter Visit Diagnoses Not on filedocumented in this encounter Additional Health Concerns Assessment Noted Time A fall risk assessment has been complete d for the patient 07/30/2024 8:29 AM EDT A Body Mass Index follow-up plan has been documented for the patient 05/28/2024 1:52 PM EST documented as of this encounter Care Teams Mental Retardation Aide Relationship Specialty Start Date End Date Jevon Vazquez MD [address] [place] [address] #1 [address]1 [place] [address] PCP - General 03/23/22 documented as of this encounter
--- OUTSIDE RECORDS SUMMARY | 2024-09-30 13:37 | XMS_ITS | Encounter Summary ---
Author Organization Healthcare Address [address] [place] [address] Care Team Providers Care Thread Spinner Name Role Phone Jevon Vazquez MD Primary Care Provider [phone] Encounter Details Date Type Department Care Team [...] Hematology/BMT and Cellular Therapy Program [address] [address] 10/14/2024 11:30 AM EDT Office Visit [facility] Hematology/BMT and Cellular Therapy Program [address] [address] Zonia Hoffman, LINUX ADMIN ENGINEER 800 [facility] [address] [place] [phone] documented as of this encounter Visit Diagnoses Not on filedocumented in this encounter Additional Health Concerns Assessment Noted Time A fall risk assessment has been complete d for the patient 09/19/2024 8:38 AM EDT A Body Mass Index follow-up plan has been documented for the patient 05/28/2024 1:52 PM EST documented as of this encounter Care Teams Thread Spinner Relationship Specialty Start Date End Date Jevon Vazquez MD [address] [place] [address] #1 #1 [place] [id number] PCP - General 03/23/22 documented as of this encounter
--- OUTSIDE RECORDS SUMMARY | 2024-09-30 13:37 | XMS_ITS | Encounter Summary ---
Author Organization Healthcare Address [address] [place] [address] Care Team Providers Care Tape Recording Machine Operator Name Role Phone Jevon Vazquez MD Primary Care Provider [phone] Encounter Details Date Type Department Care Team [...] Hematology/BMT and Cellular Therapy Program [address] [address] 10/14/2024 11:30 AM EDT Office Visit [facility] Hematology/BMT and Cellular Therapy Program [address] [address] Zonia Hoffman, CABLE INSTALLATION MANAGER 800 [facility] [address] [place] [phone] documented as of this encounter Visit Diagnoses Not on filedocumented in this encounter Additional Health Concerns Assessment Noted Time A fall risk assessment has been complete d for the patient 09/19/2024 8:38 AM EDT A Body Mass Index follow-up plan has been documented for the patient 05/28/2024 1:52 PM EST documented as of this encounter Care Teams Tape Recording Machine Operator Relationship Specialty Start Date End Date Jevon Vazquez MD [address] [place] [address] #1 #1 [place] [id number] PCP - General 03/23/22 documented as of this encounter
--- OUTSIDE RECORDS SUMMARY | 2024-09-30 13:37 | XMS_ITS | Encounter Summary ---
Author Organization Healthcare Address [address] [place] [address] Care Team Providers Care Olive Picker Name Role Phone Jevon Vazquez MD Primary Care Provider [phone] Encounter Details Date Type Department Care Team [...] Hematology/BMT and Cellular Therapy Program [address] [address] 10/14/2024 11:30 AM EDT Office Visit [facility] Hematology/BMT and Cellular Therapy Program [address] [address] Zonia Hoffman, INDUCTION COORDINATION ENGINEER 800 [facility] [address] [place] [phone] documented as of this encounter Visit Diagnoses Not on filedocumented in this encounter Additional Health Concerns Assessment Noted Time A fall risk assessment has been complete d for the patient 07/30/2024 8:29 AM EDT A Body Mass Index follow-up plan has been documented for the patient 05/28/2024 1:52 PM EST documented as of this encounter Care Teams Olive Picker Relationship Specialty Start Date End Date Jevon Vazquez MD [address] [place] [address] #1 #1 [place] [id number] PCP - General 03/23/22 documented as of this encounter
--- OUTSIDE RECORDS SUMMARY | 2024-09-30 13:37 | XMS_ITS | Encounter Summary ---
Author Organization Healthcare Address [address] [place] [address] Care Team Providers Care Sales Promotion Coordinator Name Role Phone Jevon Vazquez MD Primary Care Provider [phone] Encounter Details Date Type Department Care Team [...] CC Hematology/BMT and Cellular Therapy Program [address] [address] 10/14/2024 11:30 AM EDT Office Visit [facility] Hematology/BMT and Cellular Therapy Program [address] [address] Zonia Hoffman, FOREST SCIENTIST 800 [facility] [address] [place] [phone] documented as of this encounter Visit Diagnoses Not on filedocumented in this encounter Additional Health Concerns Assessment Noted Time A fall risk assessment has been complete d for the patient 07/30/2024 8:29 AM EDT A Body Mass Index follow-up plan has been documented for the patient 05/28/2024 1:52 PM EST documented as of this encounter Care Teams Sales Promotion Coordinator Relationship Specialty Start Date End Date Jevon Vazquez MD [address] [place] [address] #1 #1 [place] [address] PCP - General 03/23/22 documented as of this encounter
--- OUTSIDE RECORDS SUMMARY | 2024-09-30 13:37 | XMS_ITS | Encounter Summary ---
Author Organization Healthcare Address [address] [place] [address] Care Team Providers Care Storage Facility Housekeeper Name Role Phone Jevon Vazquez MD Primary Care Provider [phone] Encounter Details Date Type Department Care Team ([facility] st Contact Info) Description 08/18/2024 Telephone [facility] Hematology/BMT and Cellular Therapy Program [address] [address] Romana [place], FUR MIXER OPERATOR 800 [facility] [address] [place] [address] Social History Tobacco Use Types Packs/Day Years [...] to her levels being low Callback number: [phone] documented in this encounter Plan of Treatment Upcoming Encounters Date Type Department Care Team (Late st Contact Info) Description 10/14/2024 11:00 AM EDT Clinical Support [facility] Hematology/BMT and Cellular Therapy Program [address] [address] 10/14/2024 11:30 AM EDT Office Visit [facility] Hematology/BMT and Cellular Therapy Program [address] [address] Zonia Hoffman, FUR MIXER OPERATOR 800 [facility] [address] [place] [phone] documented as of this encounter Visit Diagnoses Not on filedocumented in this encounter Additional Health Concerns Assessment Noted Time A fall risk assessment has been complete d for the patient 07/30/2024 8:29 AM EDT A Body Mass Index follow-up plan has been documented for the patient 05/28/2024 1:52 PM EST documented as of this encounter Care Teams Storage Facility Housekeeper Relationship Specialty Start Date End Date Jevon Vazquez MD [address] [place] [address] #1 [address] [place] [address] PCP - General 03/23/22 documented as of this encounter
--- OUTSIDE RECORDS SUMMARY | 2024-09-30 13:37 | XMS_ITS | Encounter Summary ---
Author Organization Healthcare Address [address] [place] [address] Care Team Providers Care Weather Teacher Name Role Phone Jevon Vazquez MD Primary Care Provider [phone] Encounter Details Date Type Department Care Team [...] Hematology/BMT and Cellular Therapy Program [address] [address] 10/14/2024 11:30 AM EDT Office Visit [facility] Hematology/BMT and Cellular Therapy Program [address] [phone] Zonia Hoffman, SAWDUST MACHINE OPERATOR 800 [facility] [address] [place] [phone] documented as of this encounter Visit Diagnoses Not on filedocumented in this encounter Additional Health Concerns Assessment Noted Time A fall risk assessment has been complete d for the patient 09/19/2024 8:38 AM EDT A Body Mass Index follow-up plan has been documented for the patient 05/28/2024 1:52 PM EST documented as of this encounter Care Teams Weather Teacher Relationship Specialty Start Date End Date Jevon Vazquez MD [address] [place] [address] #1 #1 [place] [id number] PCP - General 03/23/22 documented as of this encounter
--- OUTSIDE RECORDS SUMMARY | 2024-09-30 13:37 | XMS_ITS | Encounter Summary ---
Author Organization Healthcare Address [address] [place] [address] Care Team Providers Care Bullet Lubricating Machine Operator Name Role Phone Jevon Vazquez MD Primary Care Provider [phone] Encounter Details Date Type Department Care Team [...] Hematology/BMT and Cellular Therapy Program [address] [address] 10/14/2024 11:30 AM EDT Office Visit [facility] Hematology/BMT and Cellular Therapy Program [address] [address] Zonia Hoffman, TOUR ACTOR 800 [facility] [address] [place] [phone] documented as of this encounter Visit Diagnoses Not on filedocumented in this encounter Additional Health Concerns Assessment Noted Time A fall risk assessment has been complete d for the patient 07/30/2024 8:29 AM EDT A Body Mass Index follow-up plan has been documented for the patient 05/28/2024 1:52 PM EST documented as of this encounter Care Teams Bullet Lubricating Machine Operator Relationship Specialty Start Date End Date Jevon Vazquez MD [address] [place] [address] #1 #1 [place] [address] PCP - General 03/23/22 documented as of this encounter
--- OUTSIDE RECORDS SUMMARY | 2024-09-30 13:38 | XMS_ITS | Encounter Summary ---
Author Organization Healthcare Address [address] [place] [address] Care Team Providers Care Silver Plater Name Role Phone Jevon Vazquez MD Primary [...] Hematology/BMT and Cellular Therapy Program [address] [address] 10/14/2024 11:30 AM EDT Office Visit [facility] Hematology/BMT and Cellular Therapy Program [address] [address] Zonia Hoffman, TAKER OFF HEMP FIBER 800 [facility] [address] [place] [phone] documented as of this encounter Visit Diagnoses Not on filedocumented in this encounter Additional Health Concerns Assessment Noted Time A fall risk assessment has been complete d for the patient 09/19/2024 8:38 AM EDT A Body Mass Index follow-up plan has been documented for the patient 05/28/2024 1:52 PM EST documented as of this encounter Care Teams Silver Plater Relationship Specialty Start Date End Date Jevon Vazquez MD [address] [place] [address] #1 #1 [place] [address] PCP - General 03/23/22 documented as of this encounter
--- OUTSIDE RECORDS SUMMARY | 2024-09-30 13:38 | XMS_ITS | Encounter Summary ---
Author Organization Healthcare Address [address] [place] [address] Care Team Providers Care Wet Mixer Name Role Phone Jevon Vazquez MD Primary Care Provider [phone] Encounter Details Date Type Department Care Team [...] Hematology/BMT and Cellular Therapy Program [address] [address] 10/14/2024 11:30 AM EDT Office Visit [facility] Hematology/BMT and Cellular Therapy Program [address] [address] Zonia Hoffman, MUCK MINER BLASTING 800 [facility] [address] [place] [phone] documented as of this encounter Visit Diagnoses Not on filedocumented in this encounter Additional Health Concerns Assessment Noted Time A fall risk assessment has been complete d for the patient 09/19/2024 8:38 AM EDT A Body Mass Index follow-up plan has been documented for the patient 05/28/2024 1:52 PM EST documented as of this encounter Care Teams Wet Mixer Relationship Specialty Start Date End Date Jevon Vazquez MD [address] [place] [address] #1 #1 [place] [address] PCP - General 03/23/22 documented as of this encounter
--- OUTSIDE RECORDS SUMMARY | 2024-09-30 13:38 | XMS_ITS | Encounter Summary ---
Author Organization Healthcare Address [address] [place] [address] Care Team Providers Care Informatics Specialist Name Role Phone Jevon Vazquez MD Primary Care Provider [phone] Encounter Details Date Type Department Care Team [...] Hematology/BMT and Cellular Therapy Program [address] [address] 10/14/2024 11:30 AM EDT Office Visit [facility] Hematology/BMT and Cellular Therapy Program [address] [address] Zonia Hoffman, MEAT TEAM LEAD 800 [facility] [address] [place] [phone] documented as of this encounter Visit Diagnoses Not on filedocumented in this encounter Additional Health Concerns Assessment Noted Time A fall risk assessment has been complete d for the patient 09/19/2024 8:38 AM EDT A Body Mass Index follow-up plan has been documented for the patient 05/28/2024 1:52 PM EST documented as of this encounter Care Teams Informatics Specialist Relationship Specialty Start Date End Date Jevon Vazquez MD [address] [place] [address] #1 #1 [place] [address] PCP - General 03/23/22 documented as of this encounter
[2024-09-30 14:14] LABS: Basophils % 0.3 % (0.1-2.0); Eosinophils % 0.3 % (0.1-12.0); Hematocrit 22.3 % (37.0-47.0); Hemoglobin 7.5 g/dL (12.2-16.2); Immature Granulocytes # 0.01 10^3uL; Immature Granulocytes % 0.3 %; Lymphocytes % 30.8 % (10-50); Mean Corpuscular HGB Conc 33.6 g/dL (31.8-35.4); Mean Corpuscular Hemoglobin 39.7 pg (27.0-31.2); Mean Platelet Volume 10.7 fl (7.4-10.4); Monocytes # 0.2 K/mm3 (0.1-1.0); Monocytes % 7.5 % (1.7-9.3); Neutrophils % 60.8 % (37.0-80.0); Nucleated Red Blood Cells # 0 10^3/uL; Nucleated Red Blood Cells % 0 %; Red Blood Count 1.89 M/mm3 (4.20-5.40); Red Cell Distribution Width 18.4 % (11.5-17.5); White Blood Count 3.2 K/mm3 (4.8-10.8)
[2024-09-30 14:16] LABS: Platelet Count 16 K/mm3 (142-424)
== END 2024-09-30 14:00 | disposition home or self-care (01) ==
LOC: INF 13:34
PROVIDERS: PCP Family Medicine; Visit Provider Internal Medicine Medical Oncology
DX: C95.90 Leukemia, unspecified not having achieved remission (principal)
CPT/HCPCS: 36591; 85025; 86850; J1642

== ENCOUNTER 2024-10-01 09:10 | Outpatient (CLI) | payer MEDICARE, BC, SELFPAY ==
--- OUTSIDE RECORDS SUMMARY | 2024-09-19 07:30 | XMS_ITS | Encounter Summary ---
Author Organization [facility] Address [address] [place] [address] Care Team Providers Care Firestop/Containment Worker Name Role Phone Jevon Vazquez MD Primary Care Provider [phone] Reason for Visit * Reason Comments Nurse Visit Encounter Details Date Type Department Care Team ([facility] Contact Info) Description 09/19/2024 7:30 AM EDT Clinical Support [facility] Hematology/BMT and Cellular Therapy Program [address] [phone] Social History Tobacco Use Types Packs/Day Years [...] Upcoming Encounters Date Type Department Care Team ([facility] Contact Info) Description 10/14/2024 11:00 AM EDT Clinical Support [facility] Hematology/BMT and Cellular Therapy Program [address] [phone] 10/14/2024 11:30 AM EDT Office Visit [facility] Hematology/BMT and Cellular Therapy Program [address] [phone] Zonia Hoffman, COMPUTER SYSTEMS CONSULTANT 800 [facility] [address] [place] [address] documented as of this encounter Visit Diagnoses Not on filedocumented in this encounter Additional Health Concerns Assessment Noted Time A fall risk assessment has been complete d for the patient 09/19/2024 8:38 AM EDT A Body Mass Index follow-up plan has been documented for the patient 05/28/2024 1:52 PM EST documented as of this encounter Care Teams Firestop/Containment Worker Relationship Specialty Start Date End Date Jevon Vazquez MD [address] [place] [address] #1 #1 [place] [address] PCP - General 03/23/22 documented as of this encounter
--- OUTSIDE RECORDS SUMMARY | 2024-09-19 09:30 | XMS_ITS | Encounter Summary ---
Author Organization Healthcare Address [address] [place] [address] Care Team Providers Care Labor Representative Name Role Phone Jevon Vazquez MD Primary Care Provider [phone] Reason for Visit * Reason Comments Follow-up Encounter Details Date Type Department Care Team (Latest Contact Info) Description 09/19/2024 9:30 AM EDT Clinical Support [facility] [address] [place] [address] Acute myeloid leukemia not having achieved remission [...] [facility] H[facility]ology/BMT and Cellular Therapy Program [address] [address] 10/14/2024 11:30 AM EDT Office Visit [facility] Cellular Therapy [facility] [address] [address] Zonia Hoffman, SHORE MAN 800 [facility] [address] [place] [address] documented as of this encounter Procedures Procedure [...] ORDERABLES Final Re sult Performing Organization Address [facility] Co de Phone Number [facility] [address] [place] [address] * Transfuse platelets, Irradiated (09/19/2024 10:02 AM EDT) us Lexi Ferraro APRN BLOOD TRANSFUSION ORDERABL ES Final Result * Prepare Leukocyte Reduced Platelets (09/19/2024 9:08 AM EDT) Product Code [id number] CH BLOO D BANK Dispense Status Transfused BLOOD BANK Blood Expiration Date [id number] BLOOD BANK Unit Number [id number] CH B LOOD BANK Product Blood Type 6200 BLOOD BANK Blood Type A+ BLOOD BANK us Provider Not In System BLOOD BANK PRODUCT ORD ERABLES Final Result Performing Organization Address [facility] de Phone Number BLOOD BANK [address] documented in this encounter Visit Diagnoses [...] documented as of this encounter Care Teams Labor Representative Relationship Specialty Start Date End Date Jevon Vazquez MD [address] [place] [address] #1 #1 [place] [address] PCP - General 03/23/22 documented as of this encounter
--- OUTSIDE RECORDS SUMMARY | 2024-09-19 12:00 | XMS_ITS | Encounter Summary ---
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) Procedures Leukemia/Lymphoma - Immunophenotyping by Flow Cytometry New Mckinney MD [address] [facility] [address] [phone] Phone: tel: fax: Referral ID Status Reason Start Date Expiration Date V isits Requested Visits Authorized [id number] Authorized 09/11/2024 03/13/2026 1 1 Encounter Details Date Type Department Care Team (Latest Contact Info) Description 09/19/2024 12:00 PM EDT Procedure Visit [facility] Hematology/BMT and Cellular Therapy Program [address] [phone] Lexi Ferraro, RODDY 800 [facility] [address] [phone] Acute myeloid leukemia not having [...] to surronding structures. Alternatives discussed: Delayed treatment Cook Sta protocol: Procedure explained and questions answered to [...] Description 10/14/2024 11:00 AM EDT Clinical Support [facility] Hematology/BMT and Cellular Therapy Program [address] [phone] 10/14/2024 11:30 AM EDT Office Visit [facility] Hematology/BMT and Cellular Therapy Program [address] [phone] Zonia Hoffman APRN 800 [facility] [address] [place] [phone] documented as of this encounter Procedures Procedure [...] to surronding structures. Alternatives discussed: Delayed treatment Cook [place] protocol: Procedure explained and questions answered to [...] Type Bone Marrow 09/24/2024 2:37 PM EDT [facility] Clinical Indication Myelodysplastic Syndrome 09/24/2024 2:37 PM EDT [facility] Specimen Adequacy Adequate 025 2:37 PM EDT [facility] Chromosome Analysis Result Giemsa-banded metaphase cells from unstimulated bone marrow cultures showed a 46,XX[20] chromosome pattern. 09/24/2024 2:37 PM EDT [facility] Interpretation Normal female chromosome analysis. No clonal abnormalities were detected at current resolution. Clinical correlation is recommended. # cells counted = 20 # cells analyzed = 20 # cells karyotyped = 2 Band resolution: 450-525 09/24/2024 2:37 PM EDT [facility] Pathologist Signature Reviewed by: Corey Tejada 09/24/2024 2:37 PM EDT [facility] Bone Marrow Non-blood Collection / Unknown 09/19/2024 7:29 AM EDT 09/19/2024 12:35 PM EDT us New Mckinney MD LAB CYTOGENETICS ORDERABLES F inal Result [facility] [address] [place] [address] * Myeloid Focused Panel, 50 gene (09/19/2024 7:29 AM EDT) Interpretation The following two (2) genes, TP53 and DNMT3A, with persistent variants have been detected in this bone marrow specimen. The variant, p.[id number], in TP53 gene and the variant, p.[id number], in the RUNX 1 gene are not detectable at current cutoff and coverage established in this lab. Gene: TP53 Mutation: c.814G>A; p.Oqg519Znq Allele Frequency (%): 37% (45% Dec 2023) ID: [id number] Gene: DNMT3A Mutation: c.1522delC; p.[id number] 3 Allele Frequency (%): 36% (48% Dec 2023) Additional Details on Mutation Identified: Gene Transcript Genome Chrom Coordinate RefVar DNMT3A [id number] Hg19 2 [id number] delC TP53 [id number] Hg19 17 [id number] G>A 09/29/2024 4:05 PM EDT [facility] Methodology The following 50 genes [...] then sequenced on the Illumina NextSeq 2000 ([employer], [place]). A custom bioinformatics pipeline aligns [...] of hematologic malignancies. 09/29/2024 4:05 PM EDT [facility] Disclaimer This test was developed and its performance characteristics determined by the Clinical Molecular and Genomic Pathology Laboratory at the [facility]. It has not been cleared or approved [...] clinical laboratory testing. 09/29/2024 4:05 PM EDT [facility] Pathologist Signature Reviewed by: Corey Tejada 09/29/2024 4:05 PM EDT [facility] Bone Marrow Specimen from bone marrow obtained by aspiration / Unknown Non-blood Collection / Unknown 09/19/2024 7:29 AM EDT 09/19/2024 12:03 PM EDT us New Mckinney MD LAB MOLECULAR DIAGNOSTICS ORD ERABLES Final Result [facility] [address] [place] [address], * Leukemia/Lymphoma - Immunophenotyping by Flow Cytometry (09/19/2024 7:29 AM EDT) Clinical Indication AML 09/22/2024 10:29 AM EDT [facility] Flow Cytometry Interpretation A. BONE MARROW FOR FLOW CYTOMETRY: - MIXED MARROW ELEMENTS WITH NO EVIDENCE OF INCREASED BLASTS OR ABNORMAL LYMPHOID POPULATIONS, SEE COMMENT. 09/22/2024 10:29 AM EDT [facility] Comments CD45/side scatter analysis shows a [...] chains 09/22/2024 10:29 AM EDT [facility] Disclaimer This test was developed and its performance characteristics determined by the Immuno-Molecular Pathology Laboratory at the [facility]. It has not been cleared or approved [...] on the report. 09/22/2024 10:29 AM EDT [facility] Pathologist Signature Reviewed by: Lisandra Epstein MD 09/22/2024 10:29 AM EDT [facility] MRD Indicated Test Not Indicated 12/2024 10:29 AM EDT [facility] Bone Marrow Specimen from bone marrow obtained by aspiration / Unknown Non-blood Collection / Unknown 09/19/2024 7:29 AM EDT 09/19/2024 12:13 PM EDT us New Mckinney MD LAB FLOW CYTOMETRY ORDERABLES Final Result [facility] [address] [place] [address] * (ABNORMAL) CBC and differential (09/19/2024 7:29 AM EDT) WBC Count 2.70(L) 3.70 - 10.30 10*3/uL LAB HEMATOLOGY METHOD 09/19/2024 9:13 AM EDT [facility] RBC Count 1.86(L) 3.90 - 5.20 10*6/uL LAB HEMATOLOGY METHOD 09/19/2024 9:13 AM EDT [facility] HGB 7.1(L) 11.2 - 15.7 g/dL LAB HEMATOLOGY METHOD 09/19/2024 9:13 AM EDT [facility] HCT 21.5(L) 34.0 - 45.0 % LAB HEMATOLOGY METHOD 09/19/2024 9:13 AM EDT [facility] Platelet Count 14(LL) 155 - 369 10*3/uL LAB HEMATOLOGY METHOD 09/19/2024 9:13 AM EDT [facility] MCV 116(H) 79 - 98 fL LAB HEMATOLOGY METHOD 09/19/2024 9:13 AM EDT [facility] MCH 38.2(H) 26.0 - 32.0 pg LAB HEMATOLOGY METHOD 09/19/2024 9:13 AM EDT [facility] MCHC 33.0 30.7 - 35.5 g/dL LAB HEMATOLOGY METHOD 09/19/2024 9:13 AM EDT [facility] RDW 21.8(H) 11.5 - 14.5 % LAB HEMATOLOGY METHOD 09/19/2024 9:13 AM EDT [facility] MPV 13.5(H) 8.8 - 12.5 fL LAB HEMATOLOGY METHOD 09/19/2024 9:13 AM EDT [facility] nRBC 0.0 <=0.0 per 100 WBCs LAB HEMATOLOGY METHOD 09/19/2024 9:13 AM EDT [facility] Differential Type Automated LAB HEMATOLOGY METHOD 09/19/2024 9:13 AM EDT [facility] Neutrophils % 51 % LAB HEMATOLOGY METHOD 09/19/2024 9:13 AM EDT [facility] Lymphocytes % 41 % LAB HEMATOLOGY METHOD 09/19/2024 9:13 AM EDT [facility] Monocytes % 7 % LAB HEMATOLOGY METHOD 09/19/2024 9:13 AM EDT [facility] Eosinophils % 1 % LAB HEMATOLOGY METHOD 09/19/2024 9:13 AM EDT [facility] Basophils % 0 % LAB HEMATOLOGY METHOD 09/19/2024 9:13 AM EDT [facility] Immature Granulocytes % 0 % LAB HEMATOLOGY METHOD 09/19/2024 9:13 AM EDT [facility] Neutrophils Absolute 1.35(L) 1.60 - 6.10 10*3/uL LAB HEMATOLOGY METHOD 09/19/2024 9:13 AM EDT [facility] Lymphocytes Absolute 1.10(L) 1.20 - 3.90 10*3/uL LAB HEMATOLOGY METHOD 09/19/2024 9:13 AM EDT [facility] Monocytes Absolute 0.20(L) 0.30 - 0.90 10*3/uL LAB HEMATOLOGY METHOD 09/19/2024 9:13 AM EDT [facility] Eosinophils Absolute 0.03 0.00 - 0.50 10*3/uL LAB HEMATOLOGY METHOD 09/19/2024 9:13 AM EDT [facility] Basophils Absolute 0.01 0.00 - 0.10 10*3/uL LAB HEMATOLOGY METHOD 09/19/2024 9:13 AM EDT [facility] Immature Granulocytes Absolute 0.01 0.00 - 0.06 10*3/uL LAB HEMATOLOGY METHOD 09/19/2024 9:13 AM EDT [facility] Blood Blood sample taken from central line / Unknown (Port) Long-term Catheter / Unknown 09/19/2024 7:29 AM EDT 09/19/2024 8:08 AM EDT Narrative [facility] - 09/19/2024 9:13 AM EDT Therapeutic decision making should be based on absolute values, rather than percentages. New Mckinney MD LAB BLOOD ORDERABLES Final Re sult [facility] [address] [place] [id number] * Bone marrow exam (09/19/2024 7:29 AM EDT) Case Report Bone Marrow Case: [id number] Authorizing Provider: New Mckinney MD Collected: 09/19/2024 0729 Ordering Location: [facility] Hematology/BMT and Received: 09/19/2024 1216 Cellular Therapy Program Pathologist: Lisandra Epstein MD Specimens: A) - Bone Marrow Aspirate, right B) - Bone Marrow Biopsy, right C) - Peripheral Blood for Bone Marrow 3:15 PM EDT [facility] Cytogenetics Report, Addendum Chromosome Analysis Result Giemsa-banded metaphase cells from unstimulated bone marrow cultures showed a 46,XX[20] chromosome pattern. Interpretation Normal female chromosome analysis. No clonal abnormalities were detected at current resolution. Clinical correlation is recommended. 3:15 PM EDT [facility] Addendum electronically signed by Lisandra Epstein MD on 09/24/2024 at 1630 EDT Addendum Interpretation The following two (2) genes, TP53 and DNMT3A, with persistent variants have been detected in this bone marrow specimen. The variant, p.Vkt666Tlw, in TP53 gene and the variant, p.Lsn155xqe, in the RUNX 1 gene are not detectable at current cutoff and coverage established in this lab. Gene: TP53 Mutation: c.814G>A; p.Lqp869Rac Allele Frequency (%): 37% (45% Dec 2023) ID: [id number] Gene: DNMT3A Mutation: c.1522delC; p.Vyk950TdrymGif4 43 Allele Frequency (%): 36% (48% Dec 2023) Additional Details on Mutation Identified: 3:15 PM EDT [facility] Addendum electronically signed by Lisandra Epstein MD on 09/30/2024 at 1515 EDT Final Diagnosis PERIPHERAL BLOOD AND BONE MARROW, RIGHT POSTERIOR ILIAC CREST, (ASPIRATE SMEAR, AND CORE BIOPSY): - HYPOCELLULAR BONE MARROW WITH MARKEDLY DECREASED MEGAKARYOCYTES; NO SIGNIFICANT DYSPOIESIS OR INCREASE IN BLASTS. 3:15 PM EDT [facility] at 1453 EDT Clinical Information AML 09/14 3:15 PM EDT [facility] CBC and Differential PERIPHERAL BLOOD: [...] blasts are not seen. 3:15 PM EDT [facility] Bone Marrow Differential BONE MARROW DIFFERENTIAL: 200 cells Normal Patient Neutrophils 15-50 34 Metamyelocytes 4-19 3 Myelocytes 1-18 10 Promyelocytes 1-8 1 Blasts 0-2 1 Monocytes 0-5 4 Erythroid 16-38 22 Lymphocytes 3-24 13 Eosinophils 0-6 8 Basophils 0-2 0 Plasma cells 0-4 4 Other 5 3:15 PM EDT [facility] Bone Marrow Aspirate and Biopsy [...] Bone trabeculae are unremarkable. 3:15 PM EDT [facility] Special and Immunohistochemical Stains Special Stain: A1-1 Vazquez-Giemsa A1-2 Vazquez-Giemsa A1-3 Vazquez-Giemsa C1-1 Vazquez-Giemsa IHC: B1-2 CD34 All controls show appropriate reactivity. All immunohistochemis try, in situ hybridization, and histochemical tests were developed by and are performed at the [facility], [address] [place] [address]. All tests reported here, except those addressing [...] false negativity on decalcified specimens. 3:15 PM EDT [facility] Flow Cytometry Interpretation MIXED MARROW ELEMENTS WITH NO EVIDENCE OF INCREASED BLASTS OR ABNORMAL LYMPHOID POPULATIONS ([id number]). 3:15 PM EDT [facility] CYTOGENETICS/MOLECULA R INTERPRETATION Correlation with cytogenetic/molec ular analysis is suggested. 3:15 PM EDT [facility] Gross Description B. RIGHT A single specimen is received in formalin labeled bone marrow biopsy right posterior iliac crest and consists of 2 piece(s) of red/white tissue measuring 2.1/0.3 cm in length 0.2 cm in diameter. The specimen is submitted in to Histology for decalcification and routine processing. Cold Time: <1m 3:15 PM EDT [facility] Note: A resident was involved in the service. I attest I examined the relevant preparations for the specimens and confirmed the diagnosis or interpretation. 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
--- OUTSIDE RECORDS SUMMARY | 2024-09-30 09:00 | XMS_ITS | Encounter Summary ---
Author Organization Healthcare Address [address] [place] [address] Care Team Providers Care Industrial Psychologist Name Role Phone Jevon Vazquez MD Primary Care Provider [phone] Reason for Visit * Reason Comments Labs Only Encounter Details Date Type Department Care Team ([facility] Contact Info) Description 09/30/2024 9:00 AM EDT Clinical Support [facility] Hematology/BMT and Cellular Therapy Program [address] [phone] Jyoti Kemp Acute myeloid leukemia not having [...] Upcoming Encounters Date Type Department Care Team ([facility] Contact Info) Description 10/14/2024 11:00 AM EDT Clinical Support [facility] Hematology/BMT and Cellular Therapy Program [address] [phone] 10/14/2024 11:30 AM EDT Office Visit [facility] Hematology/BMT and Cellular Therapy Program [address] [phone] Zonia Hoffman, BACON STRINGER 800 [facility] [address] [place] [phone] documented as of this encounter Procedures Procedure [...] - 99 mg/dL 09/30/2024 10:20 AM EDT [facility] BUN, Plasma 21 8 - 23 mg/dL 09/30/2024 10:20 AM EDT [facility] Creatinine, Plasma 1.00 0.60 - 1.10 mg/dL 09/30/2024 10:20 AM EDT [facility] BUN/Creatinine Ratio 21 09/30/2024 10:20 AM EDT [facility] Sodium, Plasma 137 136 - 145 mmol/L 09/30/2024 10:20 AM EDT [facility] Potassium, Plasma 3.8 3.6 - 4.9 mmol/L 09/30/2024 10:20 AM EDT [facility] Chloride, Plasma 107 97 - 107 mmol/L 09/30/2024 10:20 AM EDT [facility] CO2, Plasma 22 22 - 29 mmol/L 09/30/2024 10:20 AM EDT [facility] Anion Gap 8 6 - 16 mmol/L 09/30/2024 10:20 AM EDT [facility] Total Calcium, Plasma 9.8 8.9 - 10.2 mg/dL 09/30/2024 10:20 AM EDT [facility] Total Protein 5.9(L) 6.3 - 7.9 g/dL 09/30/2024 10:20 AM EDT [facility] Albumin, Plasma 3.8 3.5 - 5.2 g/dL 09/30/2024 10:20 AM EDT [facility] AST, Plasma 28 10 - 35 U/L 09/30/2024 10:20 AM EDT [facility] ALT, Plasma 14 10 - 35 U/L 09/30/2024 10:20 AM EDT [facility] Alkaline Phosphatase, Plasma 34(L) 46 - 142 U/L 09/30/2024 10:20 AM EDT [facility] Total Bilirubin, Plasma 0.3 0.2 - 1.1 mg/dL 09/30/2024 10:20 AM EDT [facility] eGFRcr 59.6 mL/min/1.7 3m*2 09/30/2024 10:20 AM EDT [facility] Comment:Reported eGFRcr in m L/min/1.73m2 is based the CKD-EPI 2020 equation that does not use a race coefficient. Blood Venous blood specimen / Unknown (Port) Long-term Catheter / Unknown 09/30/2024 9:11 AM EDT 09/30/2024 9:50 AM EDT us Zonia Hoffman APRN LAB BLOOD ORDERABLES Final Res ult [facility] [address] [place] [address] * (ABNORMAL) CBC and Differential (09/30/2024 9:11 AM EDT) WBC Count 3.34(L) 3.70 - 10.30 10*3/uL LAB HEMATOLOGY METHOD 09/30/2024 11:07 AM EDT [facility] RBC Count 1.91(L) 3.90 - 5.20 10*6/uL LAB HEMATOLOGY METHOD 09/30/2024 11:07 AM EDT [facility] HGB 7.7(L) 11.2 - 15.7 g/dL LAB HEMATOLOGY METHOD 09/30/2024 11:07 AM EDT [facility] HCT 22.8(L) 34.0 - 45.0 % LAB HEMATOLOGY METHOD 09/30/2024 11:07 AM EDT [facility] Platelet Count 17(LL) 155 - 369 10*3/uL LAB HEMATOLOGY METHOD 09/30/2024 11:07 AM EDT [facility] MCV 119(H) 79 - 98 fL LAB HEMATOLOGY METHOD 09/30/2024 11:07 AM EDT [facility] MCH 40.3(H) 26.0 - 32.0 pg LAB HEMATOLOGY METHOD 09/30/2024 11:07 AM EDT [facility] MCHC 33.8 30.7 - 35.5 g/dL LAB HEMATOLOGY METHOD 09/30/2024 11:07 AM EDT [facility] RDW 18.7(H) 11.5 - 14.5 % LAB HEMATOLOGY METHOD 09/30/2024 11:07 AM EDT [facility] MPV 11.1 8.8 - 12.5 fL LAB HEMATOLOGY METHOD 09/30/2024 11:07 AM EDT [facility] nRBC 0.0 <=0.0 per 100 WBCs LAB HEMATOLOGY METHOD 09/30/2024 11:07 AM EDT [facility] Differential Type Automated LAB HEMATOLOGY METHOD 09/30/2024 11:07 AM EDT [facility] Neutrophils % 65 % LAB HEMATOLOGY METHOD 09/30/2024 11:07 AM EDT [facility] Lymphocytes % 26 % LAB HEMATOLOGY METHOD 09/30/2024 11:07 AM EDT [facility] Monocytes % 7 % LAB HEMATOLOGY METHOD 09/30/2024 11:07 AM EDT [facility] Eosinophils % 1 % LAB HEMATOLOGY METHOD 09/30/2024 11:07 AM EDT [facility] Basophils % 1 % LAB HEMATOLOGY METHOD 09/30/2024 11:07 AM EDT [facility] Immature Granulocytes % 0 % LAB HEMATOLOGY METHOD 09/30/2024 11:07 AM EDT [facility] Neutrophils Absolute 2.17 1.60 - 6.10 10*3/uL LAB HEMATOLOGY METHOD 09/30/2024 11:07 AM EDT [facility] Lymphocytes Absolute 0.87(L) 1.20 - 3.90 10*3/uL LAB HEMATOLOGY METHOD 09/30/2024 11:07 AM EDT [facility] Monocytes Absolute 0.24(L) 0.30 - 0.90 10*3/uL LAB HEMATOLOGY METHOD 09/30/2024 11:07 AM EDT [facility] Eosinophils Absolute 0.03 0.00 - 0.50 10*3/uL LAB HEMATOLOGY METHOD 09/30/2024 11:07 AM EDT [facility] Basophils Absolute 0.02 0.00 - 0.10 10*3/uL LAB HEMATOLOGY METHOD 09/30/2024 11:07 AM EDT [facility] Immature Granulocytes Absolute 0.01 0.00 - 0.06 10*3/uL LAB HEMATOLOGY METHOD 09/30/2024 11:07 AM EDT [facility] Blood Venous blood specimen / Unknown (Port) Long-term Catheter / Unknown 09/30/2024 9:11 AM EDT 09/30/2024 9:34 AM EDT Narrative [facility] - 09/30/2024 11:07 AM EDT Therapeutic decision making should be based on absolute values, rather than percentages. Zonia Hoffman APRN LAB BLOOD ORDERABLES Final Res ult [facility] [address] [place] [address] documented in this encounter Visit Diagnoses Diagnosis [...] as of this encounter Care Teams Industrial Psychologist Relationship Specialty Start Date End Date Jevon Vazquez MD [address] [place] [address] #1 #1 Julien JOSEP [id number] PCP - General 03/23/22 documented as of this encounter
--- OUTSIDE RECORDS SUMMARY | 2024-09-30 09:30 | XMS_ITS | Encounter Summary ---
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 [address] [place] [phone] Acute myeloid leukemia not having achieved remission [...] 73 y.o. female. Referring Physician: Zonia Hoffman, INDUSTRIAL WELDER 800 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 Next generation sequencing: Abnormal: TP53 (c.814G>A; p.[id number]) frequency 45%, DMNT3A (c.1522delC; p.[id number]) frequency 48%, RUNX1 (c.336_338delGCC; p.Ztt341kmg) frequency 35% Azacitidine + Venetoclax Cycle 1: [...] results, and documenting. RODDY Cristina [facility] HEMATOLOGY/BMT AND CELLULAR THERAPY PROGRAM 800 [facility] [phone] 40 minutes was spent on this encounter; [...] Upcoming Encounters Date Type Department Care Team ([facility] st Contact Info) Description 10/14/2024 11:00 AM EDT Clinical Support [facility] Hematology/BMT and Cellular Therapy Program 750 [facility], [address] [place] [address] [place] [address] 10/14/2024 11:30 AM EDT Office Visit [facility] Hematology/BMT and Cellular Therapy Program [address] [place] [address] Zonia Hoffman, INDUSTRIAL WELDER 800 [facility] [address] [place] [phone] documented as of this encounter Results * (ABNORMAL) Comprehensive Metabolic Panel, Plasma (09/30/2024 9:11 AM EDT) Glucose, Plasma 135(H) 74 - 99 mg/dL 09/30/2024 10:20 AM EDT [facility] BUN, Plasma 21 8 - 23 mg/dL 09/30/2024 10:20 AM EDT [facility] Creatinine, Plasma 1.00 0.60 - 1.10 mg/dL 09/30/2024 10:20 AM EDT [facility] BUN/Creatinine Ratio 21 09/30/2024 10:20 AM EDT [facility] Sodium, Plasma 137 136 - 145 mmol/L 09/30/2024 10:20 AM EDT [facility] Potassium, Plasma 3.8 3.6 - 4.9 mmol/L 09/30/2024 10:20 AM EDT [facility] Chloride, Plasma 107 97 - 107 mmol/L 09/30/2024 10:20 AM EDT [facility] CO2, Plasma 22 22 - 29 mmol/L 09/30/2024 10:20 AM EDT [facility] Anion Gap 8 6 - 16 mmol/L 09/30/2024 10:20 AM EDT [facility] Total Calcium, Plasma 9.8 8.9 - 10.2 mg/dL 09/30/2024 10:20 AM EDT [facility] Total Protein 5.9(L) 6.3 - 7.9 g/dL 09/30/2024 10:20 AM EDT [facility] Albumin, Plasma 3.8 3.5 - 5.2 g/dL 09/30/2024 10:20 AM EDT [facility] AST, Plasma 28 10 - 35 U/L 09/30/2024 10:20 AM EDT [facility] ALT, Plasma 14 10 - 35 U/L 09/30/2024 10:20 AM EDT [facility] Alkaline Phosphatase, Plasma 34(L) 46 - 142 U/L 09/30/2024 10:20 AM EDT [facility] Total Bilirubin, Plasma 0.3 0.2 - 1.1 mg/dL 09/30/2024 10:20 AM EDT [facility] eGFRcr 59.6 mL/min/1.7 3m*2 09/30/2024 10:20 AM EDT [facility] Comment:Reported eGFRcr in m L/min/1.73m2 is based the CKD-EPI 2020 equation that does not use a race coefficient. Blood Venous blood specimen / Unknown (Port) Long-term Catheter / Unknown 09/30/2024 9:11 AM EDT 09/30/2024 9:50 AM EDT us Zonia Hoffman INDUSTRIAL WELDER LAB BLOOD ORDERABLES Final Res ult [facility] [address] [place] [address] * (ABNORMAL) CBC and Differential (09/30/2024 9:11 AM EDT) WBC Count 3.34(L) 3.70 - 10.30 10*3/uL LAB HEMATOLOGY METHOD 09/30/2024 11:07 AM EDT [facility] RBC Count 1.91(L) 3.90 - 5.20 10*6/uL LAB HEMATOLOGY METHOD 09/30/2024 11:07 AM EDT [facility] HGB 7.7(L) 11.2 - 15.7 g/dL LAB HEMATOLOGY METHOD 09/30/2024 11:07 AM EDT [facility] HCT 22.8(L) 34.0 - 45.0 % LAB HEMATOLOGY METHOD 09/30/2024 11:07 AM EDT [facility] Platelet Count 17(LL) 155 - 369 10*3/uL LAB HEMATOLOGY METHOD 09/30/2024 11:07 AM EDT [facility] MCV 119(H) 79 - 98 fL LAB HEMATOLOGY METHOD 09/30/2024 11:07 AM EDT [facility] MCH 40.3(H) 26.0 - 32.0 pg LAB HEMATOLOGY METHOD 09/30/2024 11:07 AM EDT [facility] MCHC 33.8 30.7 - 35.5 g/dL LAB HEMATOLOGY METHOD 09/30/2024 11:07 AM EDT [facility] RDW 18.7(H) 11.5 - 14.5 % LAB HEMATOLOGY METHOD 09/30/2024 11:07 AM EDT [facility] MPV 11.1 8.8 - 12.5 fL LAB HEMATOLOGY METHOD 09/30/2024 11:07 AM EDT [facility] nRBC 0.0 <=0.0 per 100 WBCs LAB HEMATOLOGY METHOD 09/30/2024 11:07 AM EDT [facility] Differential Type Automated LAB HEMATOLOGY METHOD 09/30/2024 11:07 AM EDT [facility] Neutrophils % 65 % LAB HEMATOLOGY METHOD 09/30/2024 11:07 AM EDT [facility] Lymphocytes % 26 % LAB HEMATOLOGY METHOD 09/30/2024 11:07 AM EDT [facility] Monocytes % 7 % LAB HEMATOLOGY METHOD 09/30/2024 11:07 AM EDT [facility] Eosinophils % 1 % LAB HEMATOLOGY METHOD 09/30/2024 11:07 AM EDT [facility] Basophils % 1 % LAB HEMATOLOGY METHOD 09/30/2024 11:07 AM EDT [facility] Immature Granulocytes % 0 % LAB HEMATOLOGY METHOD 09/30/2024 11:07 AM EDT [facility] Neutrophils Absolute 2.17 1.60 - 6.10 10*3/uL LAB HEMATOLOGY METHOD 09/30/2024 11:07 AM EDT [facility] Lymphocytes Absolute 0.87(L) 1.20 - 3.90 10*3/uL LAB HEMATOLOGY METHOD 09/30/2024 11:07 AM EDT [facility] Monocytes Absolute 0.24(L) 0.30 - 0.90 10*3/uL LAB HEMATOLOGY METHOD 09/30/2024 11:07 AM EDT [facility] Eosinophils Absolute 0.03 0.00 - 0.50 10*3/uL LAB HEMATOLOGY METHOD 09/30/2024 11:07 AM EDT [facility] Basophils Absolute 0.02 0.00 - 0.10 10*3/uL LAB HEMATOLOGY METHOD 09/30/2024 11:07 AM EDT [facility] Immature Granulocytes Absolute 0.01 0.00 - 0.06 10*3/uL LAB HEMATOLOGY METHOD 09/30/2024 11:07 AM EDT [facility] Blood Venous blood specimen / Unknown (Port) Long-term Catheter / Unknown 09/30/2024 9:11 AM EDT 09/30/2024 9:34 AM EDT Narrative [facility] - 09/30/2024 11:07 AM EDT Therapeutic decision making should be based on absolute values, rather than percentages. us Zonia Hoffman INDUSTRIAL WELDER LAB BLOOD ORDERABLES Final Res ult [facility] [address] [place] [address] documented in this encounter Visit Diagnoses Diagnosis [...] documented as of this encounter Care Teams Asic Design Engineer Relationship Specialty Start Date End Date Jevon Vazquez MD [address] [place] [address] #1 #1 [place] [id number] PCP - General 03/23/22 documented as of this encounter
[2024-10-01] VITALS (10 sets, daily range): BP systolic 115–141; BP diastolic 43–72; PULSE 74–81; RESP 18–20; TEMP 36.3–36.6; O2SAT 99–100
--- OUTSIDE RECORDS SUMMARY | 2024-10-01 09:16 | XMS_ITS | Encounter Summary ---
Author Organization Healthcare Address [address] [place] [address] Care Team Providers Care Groover Operator Name Role Phone Jevon Vazquez MD Primary Care Provider [phone] Encounter Details Date Type Department Care Team [...] Hematology/BMT and Cellular Therapy Program [address] [address] 10/14/2024 11:30 AM EDT Office Visit [facility] Hematology/BMT and Cellular Therapy Program [address] [address] Zonia Hoffman, TRAVEL SERVICES PROFESSIONAL 800 [facility] [address] [place] [phone] documented as of this encounter Visit Diagnoses Not on filedocumented in this encounter Additional Health Concerns Assessment Noted Time A fall risk assessment has been complete d for the patient 07/30/2024 8:29 AM EDT A Body Mass Index follow-up plan has been documented for the patient 05/28/2024 1:52 PM EST documented as of this encounter Care Teams Groover Operator Relationship Specialty Start Date End Date Jevon Vazquez MD [address] [place] [address] #1 #1 [place] [address] PCP - General 03/23/22 documented as of this encounter
--- OUTSIDE RECORDS SUMMARY | 2024-10-01 09:16 | XMS_ITS | Encounter Summary ---
Author Organization Healthcare Address [address] [place] [address] Care Team Providers Care Underwater Photographer Name Role Phone Jevon Vazquez MD Primary Care Provider [phone] Encounter Details Date Type Department Care Team [...] Hematology/BMT and Cellular Therapy Program [address] [address] 10/14/2024 11:30 AM EDT Office Visit [facility] Hematology/BMT and Cellular Therapy Program [address] [phone] Zonia Hoffman, TUNNEL MUCKER 800 [facility] [address] [place] [phone] documented as of this encounter Visit Diagnoses Not on filedocumented in this encounter Additional Health Concerns Assessment Noted Time A fall risk assessment has been complete d for the patient 07/30/2024 8:29 AM EDT A Body Mass Index follow-up plan has been documented for the patient 05/28/2024 1:52 PM EST documented as of this encounter Care Teams Underwater Photographer Relationship Specialty Start Date End Date Jevon Vazquez MD [address] [place] [address] #1 #1 [place] [address] PCP - General 03/23/22 documented as of this encounter
--- OUTSIDE RECORDS SUMMARY | 2024-10-01 09:16 | XMS_ITS | Clinical Summary ---
Author Organization [facility] Address [address] 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) 09/30/2024 Telephone [facility] Hematology/BMT and Cellular Therapy Program [address] [place] [phone] Zoraida Good RN 09/30/2024 Travel 09/29/2024 Travel 09/28/2024 Travel 09/27/2024 Travel 09/26/2024 Travel 09/25/2024 Travel 09/24/2024 Travel 09/23/2024 Travel 09/19/2024 12:00 PM EDT Procedure Visit [facility] Hematology/BMT and Cellular Therapy Program [address] [place] [phone] Lexi Ferraro, BUCKET HOOKER 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) 09/19/2024 9:30 AM EDT Clinical Support [email or web address] Treatment Clinic [address] [facility], 2nd [place] [address] 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) 09/19/2024 7:30 AM EDT Clinical Support [facility] Hematology/BMT and Cellular Therapy Program [address] [place] [address] 09/19/2024 Telephone [facility] Hematology/BMT and Cellular Therapy Program [address] [phone] Romana Richmond, AKBAR 09/19/2024 Orders Only [facility] Hematology/BMT and Cellular Therapy Program [address] [phone] 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, RN 09/19/2024 Travel 09/15/2024 Telephone [facility] Hematology/BMT and Cellular Therapy Program [address] [phone] Zonia Hoffman, BUCKET HOOKER 09/15/2024 Travel 09/14/2024 Travel 09/13/2024 Travel 09/12/2024 Travel 09/12/2024 Refill [facility] Hematology/BMT and Cellular Therapy Program [address] [phone] New Mckinney MD 09/11/2024 Travel 09/10/2024 Travel 09/01/2024 Telephone [facility] Hematology/BMT and Cellular Therapy Program [address] [phone] Zonia Hoffman, BUCKET HOOKER 08/31/2024 Travel 08/30/2024 Travel 08/18/2024 Telephone [facility] Hematology/BMT and Cellular Therapy Program [address] [place] [address] Romana Gorman, BUCKET HOOKER 08/17/2024 Travel 08/16/2024 Travel 08/15/2024 Travel 08/13/2024 Travel 07/30/2024 8:30 AM EDT Office Visit [facility] Hematology/BMT and Cellular Therapy Program [address] [phone] Zonia Hoffman, BUCKET HOOKER Pancytopenia (Primary Dx) 07/30/2024 8:00 AM EDT Clinical Support [facility] Hematology/BMT and Cellular Therapy Program [address] [phone] Pancytopenia 07/30/2024 Telephone [facility] Hematology/BMT and Cellular Therapy Program [address] [place] [phone] Romana Richmond RN 07/30/2024 Refill [facility] Hematology/BMT and Cellular Therapy Program [address] [place] [phone] Daxa Elliott, salad bar clerk 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); Immunosuppressed status (CMS/HCC) 07/30/2024 Travel 07/29/2024 Travel 07/28/2024 Travel 07/27/2024 Travel 07/26/2024 Travel 07/24/2024 Travel 07/23/2024 Travel 07/19/2024 Refill [facility] Hematology/BMT and Cellular Therapy Program [address] [phone] Zonia Hoffman, BUCKET HOOKER 07/16/2024 9:00 AM EDT Office Visit [facility] Hematology/BMT and Cellular Therapy Program [address] [place] [phone] Zonia Hoffman, BUCKET HOOKER Pancytopenia (Primary Dx); 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) 07/16/2024 8:30 AM EDT Clinical Support [facility] Hematology/BMT and Cellular Therapy Program [address] [phone] 07/16/2024 Travel 07/15/2024 Travel 07/15/2024 Telephone [facility] Hematology/BMT and Cellular Therapy Program [address] [place] [address] Zonia Hoffman, BUCKET HOOKER 07/14/2024 Travel 07/13/2024 Travel 07/12/2024 Travel 07/11/2024 Travel 07/10/2024 Travel 07/09/2024 Travel 07/01/2024 Travel from Last 3 Months Immunizations Immunization [...] CC Hematology/BMT and Cellular Therapy Program [address] [facility] [place] [phone] 10/14/2024 11:30 AM EDT Office Visit [facility] Hematology/BMT and Cellular Therapy Program [address] [facility], [address] [place] [phone] Zonia Hoffman, BUCKET HOOKER 800 [facility] [address] [place] [address] Health Maintenance Due Date Last [...] UKY-Zoster Vaccines (1 of 2) 05/16/2023 03/21/2023 BYW-FTHIC-40 Vaccine ( season) 2023 02/18/2021, 07/10/2020, 06/12/2020 [...] this topic Medical Devices Implanted Type Area Lens Molder Device Identifier Shelf Expiration Date Model / Serial / Lot Port Clearvue Power 8fr - [id number] Implanted:Qty: 1 on 01/21/2024 by Ness Sargent MD at [facility] Peripherial [id number] / / Procedures Procedure Name Priority Date/Time [...] Res ult [facility] [address] [place] [address] * (ABNORMAL) Comprehensive Metabolic Panel, Plasma (09/30/2024 [...] Res ult [facility] [address] [place] [address] * BIOPSY BONE MARROW (09/19/2024 12:00 PM [...] to surronding structures. Alternatives discussed: Delayed treatment [place] protocol: Procedure explained and questions answered to [...] ORDERABLES Final Re sult Performing Organization Address City/[facility]/ZIP Co de Phone Number [facility] [address] [place] [address] * Transfuse platelets, Irradiated (09/19/2024 10:02 AM EDT) us Lexi Ferraro APRN BLOOD TRANSFUSION ORDERABL ES Final Result * Prepare Leukocyte Reduced Platelets (09/19/2024 9:08 AM EDT) Pathologist [facility] Product Code [id number] CH BLOO D BANK Dispense Status Transfused BLOOD BANK Blood Expiration Date [id number] BLOOD BANK Unit Number [id number] CH B LOOD BANK Product Blood Type 6200 BLOOD BANK Blood Type A+ BLOOD BANK us Provider Not In System BLOOD BANK PRODUCT ORD ERABLES Final Result Performing Organization Address [facility] de Phone Number BLOOD BANK [address] [place] [address], * Myeloid Focused Panel, 50 gene (09/19/2024 7:29 AM EDT) Interpretation The following two (2) genes, TP53 and DNMT3A, with persistent variants have been detected in this bone marrow specimen. The variant, p.[id number], in TP53 gene and the variant, p.[id number], in the RUNX 1 gene are not detectable at current cutoff and coverage established in this lab. Gene: TP53 Mutation: c.814G>A; p.Gry887Xdc Allele Frequency (%): 37% (45% Dec 2023) ID: [id number] Gene: DNMT3A Mutation: c.1522delC; p.[id number] 3 Allele Frequency (%): 36% (48% Dec 2023) Additional Details on Mutation Identified: Gene Transcript Genome Chrom Coordinate RefVar DNMT3A [id number] Hg19 2 [id number] delC TP53 NM_000546.5 Hg19 17 [id number] G>A 09/29/2024 4:05 PM T [facility] Methodology The following 50 genes [...] then sequenced on the Illumina NextSeq 2000 ([employer] [place]). A custom bioinformatics pipeline aligns [...] of hematologic malignancies. 09/29/2024 4:05 PM T [facility] Disclaimer This test was developed [...] clinical laboratory testing. 09/29/2024 4:05 PM EDT [facility] Pathologist Signature Reviewed by: Corey Tejada 09/29/2024 4:05 PM EDT [facility] Bone Marrow Specimen from bone marrow obtained by aspiration / Unknown Non-blood Collection / Unknown 09/19/2024 7:29 AM EDT 09/19/2024 12:03 PM EDT New Mckinney MD LAB MOLECULAR DIAGNOSTICS ORD ERABLES Final Result Performing Organization Address City/[facility]/ZIP Co de Phone Number [facility] [address] [place] [address], * Chromosome Karyotype, Oncology (09/19/2024 7:29 AM EDT) Pathologist [facility] Specimen Type Bone Marrow 09/24/2024 2:37 PM EDT [facility] Clinical Indication Myelodysplastic Syndrome 09/24/2024 2:37 PM EDT [facility] Specimen Adequacy Adequate 025 2:37 PM EDT [facility] Chromosome Analysis Result Giemsa-banded metaphase cells [...] 09/24/2024 2:37 PM EDT [facility] Pathologist Signature Reviewed by: Corey Tejada 09/24/2024 2:37 PM EDT [facility] Bone Marrow Non-blood Collection / Unknown 09/19/2024 7:29 AM EDT 09/19/2024 12:35 PM EDT New Mckinney MD LAB CYTOGENETICS ORDERABLES F inal Result [facility] [address] [place] [address] * Leukemia/Lymphoma - Immunophenotyping by Flow Cytometry (09/19/2024 7:29 AM EDT) [facility] Clinical Indication AML 09/22/2024 10:[address] [facility] Flow Cytometry Interpretation A. BONE MARROW FOR FLOW CYTOMETRY: - MIXED MARROW ELEMENTS WITH NO EVIDENCE OF INCREASED BLASTS OR ABNORMAL LYMPHOID POPULATIONS, SEE COMMENT. 09/22/2024 10:29 AM [facility] Comments CD45/side scatter analysis [...] lambda surface light chains 09/22/2024 10:[address] [facility] Disclaimer This test was developed and [...] appears on the report. 09/22/2024 10:[address] [facility] Pathologist Signature Reviewed by: Lisandra Epstein MD 09/22/2024 10:[address] [facility] MRD Indicated Test Not Indicated 12/2024 10:[address] [facility] Bone Marrow Specimen from bone marrow obtained by aspiration / Unknown Non-blood Collection / Unknown 09/19/2024 7:29 AM EDT 09/19/2024 12:13 PM EDT us New Mckinney MD LAB FLOW CYTOMETRY ORDERABLES Final Result [facility] [address] [place] [address] * Bone marrow exam (09/19/2024 7:29 AM EDT) Case Report Bone Marrow Case: [id number] Authorizing Provider: New Mckinney MD Collected: 09/19/2024 0729 Ordering Location: [facility] Hematology/BMT and Received: 09/19/2024 1216 Cellular [...] CENTER LAB Addendum electronically signed by Lisandra Esptein MD on 09/24/2024 at 1630 EDT Addendum Interpretation The following two (2) genes, TP53 and DNMT3A, with persistent variants have been detected in this bone marrow specimen. The variant, p.[id number], in TP53 gene and the variant, p.[id number], in the RUNX 1 gene are not detectable at current cutoff and coverage established in this lab. Gene: TP53 Mutation: c.814G>A; p.Nmo664Auv Allele Frequency (%): 37% (45% Dec 2023) ID: [id number] Gene: DNMT3A Mutation: c.1522delC; p.Agk222MisfiDzs2 43 Allele Frequency (%): 36% (48% Dec [...] at the [facility], [address] [place] [address]. All tests reported here, except those addressing [...] OF INCREASED BLASTS OR ABNORMAL LYMPHOID POPULATIONS ([id number]). 3:15 PM EDT [facility] CYTOGENETICS/MOLECULA R INTERPRETATION Correlation with cytogenetic/molec ular analysis is suggested. 3:15 PM [facility] Gross Description B. RIGHT A single specimen is received in formalin labeled bone marrow biopsy right posterior iliac crest and consists of 2 piece(s) of red/white tissue measuring 2.1/0.3 cm in length 0.2 cm in diameter. The specimen is submitted in to Histology for decalcification and routine processing. Cold Time: <1m 3:15 PM [facility] Note: A resident was involved in the service. I attest I examined the relevant preparations for the specimens and confirmed the diagnosis or interpretation. 3:15 PM T [facility] Bone Marrow Peripheral [...] PATHOLOGY ORDERABLES Edit ed Result - Final [facility] [address] [place] [address] * Hepatitis C Antibody w/Reflex to HCV Quant PCR (01/07/2024 8:42 AM EDT) Hepatitis C Antibody Negative Negative 01/07/2024 10:13 AM EDT [facility] Blood Venous blood specimen / Unknown Venipuncture / Unknown 01/07/2024 8:42 AM EDT 01/07/2024 9:25 AM EDT New Mckinney MD LAB BLOOD ORDERABLES Final Re sult [facility] [address] [place] [address] from Last 3 Months or Most Recently Relevant to Health Maintenance Insurance MEDICARE [facility] Care Teams Identification Officer Relationship Specialty Start Date End Date Jevon Vazquez MD [address] [place] [address] #1 #1 [place] [address] PCP - General 03/23/22
--- OUTSIDE RECORDS SUMMARY | 2024-10-01 09:16 | XMS_ITS | Encounter Summary ---
Author Organization Healthcare Address [address] [place] [address] Care Team Providers Care Recreation Aide Name Role Phone Jevon Vazquez MD Primary Care Provider [phone] Encounter Details Date Type Department Care Team [...] Hematology/BMT and Cellular Therapy Program [address] [phone] 10/14/2024 11:30 AM EDT Office Visit [facility] CC Hematology/BMT and Cellular Therapy Program [address] [phone] Zonia Hoffman, CONSTRUCTION CRAFT LABORER 800 [facility] [address] [place] [phone] documented as of this encounter Visit Diagnoses Not on filedocumented in this encounter Additional Health Concerns Assessment Noted Time A fall risk assessment has been complete d for the patient 09/30/2024 9:33 AM EDT A Body Mass Index follow-up plan has been documented for the patient 05/28/2024 1:52 PM EST documented as of this encounter Care Teams Recreation Aide Relationship Specialty Start Date End Date Jevon Vazquez MD [address] [place] [address] #1 #1 [place] [address] PCP - General 03/23/22 documented as of this encounter
--- OUTSIDE RECORDS SUMMARY | 2024-10-01 09:16 | XMS_ITS | Encounter Summary ---
Author Organization Healthcare Address [address] [place] [address] Care Team Providers Care Biotech Production Specialist Name Role Phone Jevon Vazquez MD Primary Care Provider [phone] Encounter Details Date Type Department Care Team ([facility] Contact Info) Description 09/19/2024 Orders Only [facility] CC Hematology/BMT and Cellular Therapy Program [address] [phone] 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, RN [facility] Social History Tobacco [...] ([facility] Contact Info) Description 10/14/2024 11:00 AM EDT Clinical Support [facility] Hematology/BMT and Cellular Therapy Program [address] [phone] 10/14/2024 11:30 AM EDT Office Visit [facility] CC Hematology/BMT and Cellular Therapy Program [address] [phone] Zonia Hoffman, RESIDENTIAL CHILD CARE COUNSELOR 800 [facility] [address] [place] [phone] documented as of this encounter Visit Diagnoses Not on filedocumented in this encounter Additional Health Concerns Assessment Noted Time A fall risk assessment has been complete d for the patient 09/19/2024 8:38 AM EDT A Body Mass Index follow-up plan has been documented for the patient 05/28/2024 1:52 PM EST documented as of this encounter Care Teams Biotech Production Specialist Relationship Specialty Start Date End Date Jevon Vazquez MD [address] [place] [address] #1 #1 [place] [address] PCP - General 03/23/22 documented as of this encounter
--- OUTSIDE RECORDS SUMMARY | 2024-10-01 09:16 | XMS_ITS ---
Author Organization [facility] Address [address] [place] [address] Care Team Providers Care Wrap Checker Name Role Phone Jevon Vazquez MD Primary Care Provider [phone] Active Problems Problem Noted Date Diagnosed Date [...]
--- OUTSIDE RECORDS SUMMARY | 2024-10-01 09:16 | XMS_ITS | Encounter Summary ---
Author Organization Healthcare Address [address] [place] [address] Care Team Providers Care Tree Fruit And Nut Farming Supervisor Name Role Phone Jevon Vazquez MD Primary Care Provider [phone] Encounter Details Date Type Department Care Team [...] Hematology/BMT and Cellular Therapy Program [address] [phone] 10/14/2024 11:30 AM EDT Office Visit [facility] CC Hematology/BMT and Cellular Therapy Program [address] [phone] Zonia Hoffman, LOG HOOKER 800 [facility] [address] [place] [phone] documented as of this encounter Visit Diagnoses Not on filedocumented in this encounter Additional Health Concerns Assessment Noted Time A fall risk assessment has been complete d for the patient 07/30/2024 8:29 AM EDT A Body Mass Index follow-up plan has been documented for the patient 05/28/2024 1:52 PM EST documented as of this encounter Care Teams Tree Fruit And Nut Farming Supervisor Relationship Specialty Start Date End Date Jevon Vazquez MD [address] [place] [address] #1 #1 [place] [address] PCP - General 03/23/22 documented as of this encounter
--- OUTSIDE RECORDS SUMMARY | 2024-10-01 09:16 | XMS_ITS | Encounter Summary ---
Author Organization [facility] Address [address] [place] [address] Care Team Providers Care Malted Milk Masher Name Role Phone Jevon Vazquez MD Primary Care Provider [phone] Encounter Details Date Type Department Care Team ([facility] Contact Info) Description 09/15/2024 Telephone [facility] CC Hematology/BMT and Cellular Therapy Program [address] [phone] Zonia Hoffman, HOUSEHOLD REFRIGERATION MECHANIC 800 [facility] [address] [place] [phone] Social History Tobacco Use Types Packs/Day Years [...] Upcoming Encounters Date Type Department Care Team ([facility] Contact Info) Description 10/14/2024 11:00 AM EDT Clinical Support [facility] CC Hematology/BMT and Cellular Therapy Program [address] [place] [phone] 10/14/2024 11:30 AM EDT Office Visit [facility] CC Hematology/BMT and Cellular Therapy Program [address] [place] [phone] Zonia Hoffman, HOUSEHOLD REFRIGERATION MECHANIC 800 [facility] [address] [place] [address] documented as of this encounter Visit Diagnoses Not on filedocumented in this encounter Additional Health Concerns Assessment Noted Time A fall risk assessment has been complete d for the patient 07/30/2024 8:29 AM EDT A Body Mass Index follow-up plan has been documented for the patient 05/28/2024 1:52 PM EST documented as of this encounter Care Teams Malted Milk Masher Relationship Specialty Start Date End Date Jevon Vazquez MD [address] [place] [address] #1 #1 [place] [address] PCP - General 03/23/22 documented as of this encounter
--- OUTSIDE RECORDS SUMMARY | 2024-10-01 09:16 | XMS_ITS | Encounter Summary ---
Author Organization [facility] Address [address] [place] [address] Care Team Providers Care Double Back Operator Name Role Phone Jevon Vazquez MD Primary Care Provider [phone] Reason for Visit * Reason Comments Med Refill Encounter Details Date Type Department Care Team ([facility] Contact Info) Description 09/12/2024 Refill [facility] CC Hematology/BMT and Cellular Therapy Program [address] [phone] New Mckinney MD 800 [facility] [address] [place] [phone] Social History Tobacco Use Types Packs/Day Years [...] Upcoming Encounters Date Type Department Care Team ([facility] Contact Info) Description 10/14/2024 11:00 AM EDT Clinical Support [facility] CC Hematology/BMT and Cellular Therapy Program [address] [phone] 10/14/2024 11:30 AM EDT Office Visit [facility] CC Hematology/BMT and Cellular Therapy Program [address] [phone] Zonia Hoffman, CLINICAL HAEMATOLOGIST 800 [facility] [address] [place] [phone] documented as of this encounter Visit Diagnoses Not on filedocumented in this encounter Additional Health Concerns Assessment Noted Time A fall risk assessment has been complete d for the patient 07/30/2024 8:29 AM EDT A Body Mass Index follow-up plan has been documented for the patient 05/28/2024 1:52 PM EST documented as of this encounter Care Teams Double Back Operator Relationship Specialty Start Date End Date Jevon Vazquez MD [address] [place] [address] #1 [address]1 [place] [address] PCP - General 03/23/22 documented as of this encounter
--- OUTSIDE RECORDS SUMMARY | 2024-10-01 09:16 | XMS_ITS | Encounter Summary ---
Author Organization Healthcare Address [address] [place] [address] Care Team Providers Care Commissioned Fire Officer Name Role Phone Jevon Vazquez MD Primary Care Provider [phone] Encounter Details Date Type Department Care Team [...] CC Hematology/BMT and Cellular Therapy Program [address] [phone] 10/14/2024 11:30 AM EDT Office Visit [facility] CC Hematology/BMT and Cellular Therapy Program [address] [phone] Zonia Hoffman, EQUIPMENT OPERATOR WAREHOUSE 800 [facility] [address] [place] [phone] documented as of this encounter Visit Diagnoses Not on filedocumented in this encounter Additional Health Concerns Assessment Noted Time A fall risk assessment has been complete d for the patient 07/30/2024 8:29 AM EDT A Body Mass Index follow-up plan has been documented for the patient 05/28/2024 1:52 PM EST documented as of this encounter Care Teams Commissioned Fire Officer Relationship Specialty Start Date End Date Jevon Vazquez MD [address] [place] [address] #1 #1 [place] [address] PCP - General 03/23/22 documented as of this encounter
--- OUTSIDE RECORDS SUMMARY | 2024-10-01 09:16 | XMS_ITS | Encounter Summary ---
Author Organization Healthcare Address [address] [place] [address] Care Team Providers Care [place]anau Support Worker Name Role Phone Jevon Vazquez MD Primary Care Provider [phone] Encounter Details Date Type Department Care Team [...] Hematology/BMT and Cellular Therapy Program [address] [phone] 10/14/2024 11:30 AM EDT Office Visit [facility] CC Hematology/BMT and Cellular Therapy Program [address] [phone] Zonia Hoffman, CLINICAL TRIAL ASSISTANT 800 [facility] [address] [place] [phone] documented as of this encounter Visit Diagnoses Not on filedocumented in this encounter Additional Health Concerns Assessment Noted Time A fall risk assessment has been complete d for the patient 07/30/2024 8:29 AM EDT A Body Mass Index follow-up plan has been documented for the patient 05/28/2024 1:52 PM EST documented as of this encounter Care Teams [place]anau Support Worker Relationship Specialty Start Date End Date Jevon Vazquez MD [address] [place] [address] #1 #1 [place] [address] PCP - General 03/23/22 documented as of this encounter
--- OUTSIDE RECORDS SUMMARY | 2024-10-01 09:16 | XMS_ITS | Encounter Summary ---
Author Organization Healthcare Address [address] [place] [address] Care Team Providers Care Residential Aide Name Role Phone Jevon Vazquez MD Primary Care Provider [phone] Encounter Details Date Type Department Care Team [...] CC Hematology/BMT and Cellular Therapy Program [address] [address] 10/14/2024 11:30 AM EDT Office Visit PAV CC Hematology/BMT and Cellular Therapy Program [address] [address] Zonia Hoffman, REGRADER 800 [facility] [address] [place] [phone] documented as of this encounter Visit Diagnoses Not on filedocumented in this encounter Additional Health Concerns Assessment Noted Time A fall risk assessment has been complete d for the patient 09/19/2024 8:38 AM EDT A Body Mass Index follow-up plan has been documented for the patient 05/28/2024 1:52 PM EST documented as of this encounter Care Teams Residential Aide Relationship Specialty Start Date End Date Jevon Vazquez MD [address] [place] [address] #1 #1 [place] [address] PCP - General 03/23/22 documented as of this encounter
--- OUTSIDE RECORDS SUMMARY | 2024-10-01 09:16 | XMS_ITS | Encounter Summary ---
Author Organization [facility] Address [address] [place] [address] Care Team Providers Care Teradata Architect Name Role Phone Jevon Vazquez MD Primary Care Provider [phone] Reason for Visit * Reason Comments Med Refill Encounter Details Date Type Department Care Team ([facility] Contact Info) Description 01/30/2024 Refill PAV CC Hematology/BMT and Cellular Therapy Program [address] [phone] [place] MD 800 [facility] [address] [place] [phone] Social History Tobacco Use Types Packs/Day Years [...] Department Care Team ([facility] Contact Info) Description 10/14/2024 11:00 AM EDT Clinical Support PAV CC Hematology/BMT and Cellular Therapy Program [address] [place] [address] 10/14/2024 11:30 AM EDT Office Visit PAV CC Hematology/BMT and Cellular Therapy Program [address] [phone] Zonia Hoffman, RADAR AIR TRAFFIC CONTROLLER 800 [facility] [address] [place] [address] documented as of this encounter Visit Diagnoses Not on filedocumented in this encounter Additional Health Concerns Assessment Noted Time A fall risk assessment has been complete d for the patient 01/11/2024 9:16 AM EDT A Body Mass Index follow-up plan has been documented for the patient 01/21/2024 6:16 AM EDT documented as of this encounter Care Teams Teradata Architect Relationship Specialty Start Date End Date Jevon Vazquez MD [address] [place] [address] #1 #1 [place] [address] PCP - General 03/23/22 documented as of this encounter
--- OUTSIDE RECORDS SUMMARY | 2024-10-01 09:16 | XMS_ITS | Encounter Summary ---
Author Organization Healthcare Address [address] [place] [address] Care Team Providers Care Binder And Box Builder Name Role Phone Jevon Vazquez MD Primary Care Provider [phone] Encounter Details Date Type Department Care Team [...] Hematology/BMT and Cellular Therapy Program [address] [phone] 10/14/2024 11:30 AM EDT Office Visit PAV CC Hematology/BMT and Cellular Therapy Program [address] [address] Zonia Hoffman, DIAL MARKER 800 [facility] [address] [place] [phone] documented as of this encounter Visit Diagnoses Not on filedocumented in this encounter Additional Health Concerns Assessment Noted Time A fall risk assessment has been complete d for the patient 07/30/2024 8:29 AM EDT A Body Mass Index follow-up plan has been documented for the patient 05/28/2024 1:52 PM EST documented as of this encounter Care Teams Binder And Box Builder Relationship Specialty Start Date End Date Jevon Vazquez MD [address] [place] [address] #1 #1 [place] [address] PCP - General 03/23/22 documented as of this encounter
--- OUTSIDE RECORDS SUMMARY | 2024-10-01 09:16 | XMS_ITS | Encounter Summary ---
Author Organization [facility] Address [address] [place] [address] Care Team Providers Care Home Mortgage Disclosure Act Specialist Name Role Phone Jevon Vazquez MD Primary Care Provider [phone] Encounter Details Date Type Department Care Team ([facility] Contact Info) Description 09/19/2024 Telephone PAV CC Hematology/BMT and Cellular Therapy Program [address] [place] [address] Romana Richmond RN [facility] Social History Tobacco Use Types [...] Care Team ([facility] Contact Info) Description 10/14/2024 11:00 AM EDT Clinical Support PAV CC Hematology/BMT and Cellular Therapy Program [address] [place] [address] 10/14/2024 11:30 AM EDT Office Visit PAV CC Hematology/BMT and Cellular Therapy Program 750 [facility] [place] [address] Zonia Hoffman, BOTTOM STOP ATTACHER 800 [facility] [address] [place] [address] documented as of this encounter Visit Diagnoses Not on filedocumented in this encounter Additional Health Concerns Assessment Noted Time A fall risk assessment has been complete d for the patient 09/19/2024 8:38 AM EDT A Body Mass Index follow-up plan has been documented for the patient 05/28/2024 1:52 PM EST documented as of this encounter Care Teams Home Mortgage Disclosure Act Specialist Relationship Specialty Start Date End Date Jevon Vazquez MD [address] [place] [address] #1 #1 [place] [address] PCP - General 03/23/22 documented as of this encounter
--- OUTSIDE RECORDS SUMMARY | 2024-10-01 09:17 | XMS_ITS | Encounter Summary ---
Author Organization Healthcare Address [address] [place] [address] Care Team Providers Care Criminal Justice Social Worker Name Role Phone Jevon Vazquez MD Primary Care Provider [phone] Encounter Details Date Type Department Care Team [...] Hematology/BMT and Cellular Therapy Program [address] [address] 10/14/2024 11:30 AM EDT Office Visit PAV CC Hematology/BMT and Cellular Therapy Program [address] [address] Zonia Hoffman, DATA PROCESSING SYSTEMS CONSULTANT [address] [facility] [address] [place] [phone] documented as of this encounter Visit Diagnoses Not on filedocumented in this encounter Additional Health Concerns Assessment Noted Time A fall risk assessment has been complete d for the patient 07/30/2024 8:29 AM EDT A Body Mass Index follow-up plan has been documented for the patient 05/28/2024 1:52 PM EST documented as of this encounter Care Teams Criminal Justice Social Worker Relationship Specialty Start Date End Date Jevon Vazquez MD [address] [place] [address] #1 #1 [place] [address] PCP - General 03/23/22 documented as of this encounter
--- OUTSIDE RECORDS SUMMARY | 2024-10-01 09:17 | XMS_ITS | Encounter Summary ---
Author Organization Healthcare Address [address] [place] [address] Care Team Providers Care Accounting Associate Name Role Phone Jevon Vazquez MD Primary Care Provider [phone] Encounter Details Date Type Department Care Team [...] Hematology/BMT and Cellular Therapy Program [address] [address] 10/14/2024 11:30 AM EDT Office Visit PAV CC Hematology/BMT and Cellular Therapy Program [address] [address] Zonia Hoffman, BREAKER MACHINE OPERATOR 800 [facility] [address] [place] [phone] documented as of this encounter Visit Diagnoses Not on filedocumented in this encounter Additional Health Concerns Assessment Noted Time A fall risk assessment has been complete d for the patient 09/19/2024 8:38 AM EDT A Body Mass Index follow-up plan has been documented for the patient 05/28/2024 1:52 PM EST documented as of this encounter Care Teams Accounting Associate Relationship Specialty Start Date End Date Jevon Vazquez MD [address] [place] [address] #1 #1 [place] [address] PCP - General 03/23/22 documented as of this encounter
--- OUTSIDE RECORDS SUMMARY | 2024-10-01 09:17 | XMS_ITS | Encounter Summary ---
Author Organization Healthcare Address [address] [place] [address] Care Team Providers Care Signal Intelligence Analyst Name Role Phone Jevon Vazquez MD Primary Care Provider [phone] Encounter Details Date Type Department Care Team [...] Hematology/BMT and Cellular Therapy Program [address] [address] 10/14/2024 11:30 AM EDT Office Visit PAV CC Hematology/BMT and Cellular Therapy Program [address] [address] Zonia Hoffman, LEASING COORDINATOR 800 [facility] [address] [place] [phone] documented as of this encounter Visit Diagnoses Not on filedocumented in this encounter Additional Health Concerns Assessment Noted Time A fall risk assessment has been complete d for the patient 07/30/2024 8:29 AM EDT A Body Mass Index follow-up plan has been documented for the patient 05/28/2024 1:52 PM EST documented as of this encounter Care Teams Signal Intelligence Analyst Relationship Specialty Start Date End Date Jevon Vazquez MD [address] [place] [address] #1 #1 [place] [address] PCP - General 03/23/22 documented as of this encounter
--- OUTSIDE RECORDS SUMMARY | 2024-10-01 09:17 | XMS_ITS | Encounter Summary ---
Author Organization Healthcare Address [address] [place] [address] Care Team Providers Care Optical Store Manager Name Role Phone Jevon Vazquez MD Primary Care Provider [phone] Encounter Details Date Type Department Care Team [...] Hematology/BMT and Cellular Therapy Program [address] [address] 10/14/2024 11:30 AM EDT Office Visit PAV CC Hematology/BMT and Cellular Therapy Program [address] [address] Zonia Hoffman, CARBON LAMP CLEANER 800 [facility] [address] [place] [phone] documented as of this encounter Visit Diagnoses Not on filedocumented in this encounter Additional Health Concerns Assessment Noted Time A fall risk assessment has been complete d for the patient 07/30/2024 8:29 AM EDT A Body Mass Index follow-up plan has been documented for the patient 05/28/2024 1:52 PM EST documented as of this encounter Care Teams Optical Store Manager Relationship Specialty Start Date End Date Jevon Vazquez MD [address] [place] [address] #1 #1 [place] [address] PCP - General 03/23/22 documented as of this encounter
--- OUTSIDE RECORDS SUMMARY | 2024-10-01 09:17 | XMS_ITS | Encounter Summary ---
Author Organization Healthcare Address [address] [place] [address] Care Team Providers Care Chemical Dependency Counselor Name Role Phone Jevon Vazquez MD Primary Care Provider [phone] Encounter Details Date Type Department Care Team [...] CC Hematology/BMT and Cellular Therapy Program [address] [address] 10/14/2024 11:30 AM EDT Office Visit PAV CC Hematology/BMT and Cellular Therapy Program [address] [address] Zonia Hoffman, TIP TESTER 800 [facility] [address] [place] [phone] documented as of this encounter Visit Diagnoses Not on filedocumented in this encounter Additional Health Concerns Assessment Noted Time A fall risk assessment has been complete d for the patient 07/30/2024 8:29 AM EDT A Body Mass Index follow-up plan has been documented for the patient 05/28/2024 1:52 PM EST documented as of this encounter Care Teams Chemical Dependency Counselor Relationship Specialty Start Date End Date Jevon Vazquez MD [address] [place] [address] #1 #1 [place] [address] PCP - General 03/23/22 documented as of this encounter
--- OUTSIDE RECORDS SUMMARY | 2024-10-01 09:17 | XMS_ITS | Encounter Summary ---
Author Organization Healthcare Address [address] [place] [address] Care Team Providers Care Contact Worker Lithography Name Role Phone Jevon Vazquez MD Primary Care Provider [phone] Encounter Details Date Type Department Care Team [...] Hematology/BMT and Cellular Therapy Program [address] [address] 10/14/2024 11:30 AM EDT Office Visit PAV CC Hematology/BMT and Cellular Therapy Program [address] [address] Zonia Hoffman, SENIOR OFFICER 800 [facility] [address] [place] [phone] documented as of this encounter Visit Diagnoses Not on filedocumented in this encounter Additional Health Concerns Assessment Noted Time A fall risk assessment has been complete d for the patient 09/19/2024 8:38 AM EDT A Body Mass Index follow-up plan has been documented for the patient 05/28/2024 1:52 PM EST documented as of this encounter Care Teams Contact Worker Lithography Relationship Specialty Start Date End Date Jevon Vazquez MD [address] [place] [address] #1 #1 [place] [address] PCP - General 03/23/22 documented as of this encounter
--- OUTSIDE RECORDS SUMMARY | 2024-10-01 09:17 | XMS_ITS | Encounter Summary ---
Author Organization Healthcare Address [address] [place] [address] Care Team Providers Care Ballistic Expert Name Role Phone Jevon Vazquez MD Primary Care Provider [phone] Encounter Details Date Type Department Care Team ([facility] st Contact Info) Description 07/15/2024 Telephone PAV CC Hematology/BMT and Cellular Therapy Program [address] [address] Zonia Hoffman, SERVICE TECH 800 [facility] [address] [place] [phone] Social History Tobacco Use Types Packs/Day Years [...] Reason for Call: Per PT call to [facility], needs [place] appt clarity, asking to have Jorge from clinical care team. Best contact number and optimal time of day to reach caller: [phone] Note: Please do not reply to this [...] ([facility] st Contact Info) Description 10/14/2024 11:00 AM EDT Clinical Support PAV Hematology/BMT and Cellular Therapy Program [address] [place] [phone] 10/14/2024 11:30 AM EDT Office Visit PAV Hematology/BMT and Cellular Therapy Program [address] [place] [phone] Zonia Hoffman, SERVICE TECH 800 [facility] [address] [place] [phone] documented as of this encounter Visit Diagnoses Not on filedocumented in this encounter Additional Health Concerns Assessment Noted Time A fall risk assessment has been complete d for the patient 06/18/2024 10:22 AM EST A Body Mass Index follow-up plan has been documented for the patient 05/28/2024 1:52 PM EST documented as of this encounter Care Teams Ballistic Expert Relationship Specialty Start Date End Date Jevon Vazquez MD [address] [place] [address] #1 #1 [place] [address] PCP - General 03/23/22 documented as of this encounter
--- OUTSIDE RECORDS SUMMARY | 2024-10-01 09:17 | XMS_ITS | Encounter Summary ---
Author Organization Healthcare Address [address] [place] [address] Care Team Providers Care Land Inspector Name Role Phone Jevon Vazquez MD Primary Care Provider [phone] Encounter Details Date Type Department Care Team [...] Cellular Therapy Program [address] [address] 10/14/2024 11:30 AM EDT Office Visit PAV CC Hematology/BMT and Cellular Therapy Program [address] [address] Zonia Hoffman, ROUGE SIFTER 800 [facility] [address] [place] [phone] documented as of this encounter Visit Diagnoses Not on filedocumented in this encounter Additional Health Concerns Assessment Noted Time A fall risk assessment has been complete d for the patient 07/30/2024 8:29 AM EDT A Body Mass Index follow-up plan has been documented for the patient 05/28/2024 1:52 PM EST documented as of this encounter Care Teams Land Inspector Relationship Specialty Start Date End Date Jevon Vazquez MD [address] [place] [address] #1 #1 [place] [address] PCP - General 03/23/22 documented as of this encounter
--- OUTSIDE RECORDS SUMMARY | 2024-10-01 09:17 | XMS_ITS | Encounter Summary ---
Author Organization Healthcare Address [address] [place] [address] Care Team Providers Care Public Health Educator Name Role Phone Jevon Vazquez MD Primary Care Provider [phone] Encounter Details Date Type Department Care Team [...] Hematology/BMT and Cellular Therapy Program [address] [address] 10/14/2024 11:30 AM EDT Office Visit PAV CC Hematology/BMT and Cellular Therapy Program [address] [address] Zonia Hoffman, DYE TANK TENDER 800 [facility] [address] [place] [phone] documented as of this encounter Visit Diagnoses Not on filedocumented in this encounter Additional Health Concerns Assessment Noted Time A fall risk assessment has been complete d for the patient 09/19/2024 8:38 AM EDT A Body Mass Index follow-up plan has been documented for the patient 05/28/2024 1:52 PM EST documented as of this encounter Care Teams Public Health Educator Relationship Specialty Start Date End Date Jevon Vazquez MD [address] [place] [address] #1 #1 [place] [address] PCP - General 03/23/22 documented as of this encounter
--- OUTSIDE RECORDS SUMMARY | 2024-10-01 09:17 | XMS_ITS | Encounter Summary ---
Author Organization Healthcare Address [address] [place] [address] Care Team Providers Care Instructor Ballroom Dancing Name Role Phone Jevon Vazquez MD Primary Care Provider [phone] Encounter Details Date Type Department Care Team ([facility] st Contact Info) Description 08/18/2024 Telephone PAV CC Hematology/BMT and Cellular Therapy Program [address] [address] Romana Gorman, DETECTIVE [place] 800 [facility] [address] [place] [address] Social History Tobacco Use Types Packs/Day Years [...] to her levels being low Callback number: [phone] documented in this encounter Plan of Treatment Upcoming Encounters Date Type Department Care Team (Late st Contact Info) Description 10/14/2024 11:00 AM EDT Clinical Support PAV Hematology/BMT and Cellular Therapy Program [address] [address] 10/14/2024 11:30 AM EDT Office Visit PAV Hematology/BMT and Cellular Therapy Program [address] [phone] Zonia Hoffman, DETECTIVE [place] 800 [facility] [address] [place] [phone] documented as of this encounter Visit Diagnoses Not on filedocumented in this encounter Additional Health Concerns Assessment Noted Time A fall risk assessment has been complete d for the patient 07/30/2024 8:29 AM EDT A Body Mass Index follow-up plan has been documented for the patient 05/28/2024 1:52 PM EST documented as of this encounter Care Teams Instructor Ballroom Dancing Relationship Specialty Start Date End Date Jevon Vazquez MD [address] [place] [address] #1 #[address] [place] [address] PCP - General 03/23/22 documented as of this encounter
--- OUTSIDE RECORDS SUMMARY | 2024-10-01 09:17 | XMS_ITS | Clinical Summary ---
Author Organization [facility] Address [address] [place] [address] Care Team Providers Care Mobile Patrol Officer Name Role Phone David Vazquez Primary Care Provider [phone] Allergies No known active allergies Medications atorvastatin [...] series) 2025 Medical Devices Implanted Type [employer] Device Identifier Shelf Expiration Date Model / Serial / Lot Mis Ply Scr 6.5x50mm - [id number] Implanted:Qty : 1 on 01/30/2023 by Ivan Bartholomew MD at [facility] [employer] [employer] Screw N/A: Spine Lumbar [employer] [id number] / / Mis Ply Scr 6.5x45mm - [id number] Implanted:Qty : 3 on 01/30/2023 by Ivan Bartholomew MD at [facility] [employer] Screw N/A: Spine Lumbar [employer] [id number] / / Reline Mas Reduction Screw 7.5x45 - [id number] Implanted:Qty : 2 on 01/30/2023 by Ivan Bartholomew MD at [facility] [employer] [employer] Screw N/A: Spine Lumbar [employer] [id number] / / Grft Dbm Vesuvius Putty 5cc - [id number] Implanted:Qty : 1 on 01/30/2023 by Ivan Bartholomew MD at [facility] [employer] [employer] [id number] 04/20/2025 [id number] P / [id number] / Putty I-Factor 5.0cc - [id number] Implanted:Qty : 1 on 01/30/2023 by Ivan Bartholomew MD at [facility] [employer] N/A: Spine Lumbar [employer] 03/15/2025 [id number] / / [id number] Modulus Xlw [id number] 10 Degree - [id number] Implanted:Qty : 1 on 01/30/2023 by Ivan Bartholomew MD at [facility] [employer] N/A: Spine Lumbar [employer] [id number] / / [id number] Modulus Xlw [id number] - [id number] Implanted:Qty : 1 on 01/30/2023 by Ivan Bartholomew MD at [facility] [employer] N/A: Spine Lumbar [employer] 09/28/2027 [id number] / / [id number] Reln Lock Scr 5.5mm Opn Tulip - [id number] Implanted:Qty : 6 on 01/30/2023 by Ivan Bartholomew MD at [facility] N/A: Spine Lumbar [employer] [id number] / / Reln Mas Ti Petar 5.5x70mm - [id number] Implanted:Qty : 2 on 01/30/2023 by Ivan Bartholomew MD at [facility] N/A: Spine Lumbar [employer] [id number] / / Procedures Procedure Name Priority Date/Time [...] Glycohemoglobin Standardization program (NGSP) and traceable to [facility]. Estimated Average Glucose 126(H) 68 - 114 mg/dL [facility] Whole Blood (Blood) 01/24/2023 2:32 PM EDT 01/24/2023 6:00 PM EDT us Ivan Bartholomew MD CHEMISTRY ORDERABLES Fin al Result [facility] [address] * (ABNORMAL) BASIC METABOLIC PANEL (BMP=EP1) [...] [facility] [address] from Last 3 Months or Most Recently Relevant to Health Maintenance Insurance MEDICARE PART A [facility] [address] [address] [place] [address] ANTH Advance Directives For more information, please contact: [phone] * Full Code (Latest Code Status on File) Date Activated Date Inactivated Comments 01/30/2023 9:13 AM No automated chest compression devices for VAD Patients Care Teams Mobile Patrol Officer Relationship Specialty Start Date End Date David Vazquez [address] [place] [id number] PCP - General 01/24/23
--- OUTSIDE RECORDS SUMMARY | 2024-10-01 09:17 | XMS_ITS | Encounter Summary ---
Author Organization Healthcare Address [address] [place] [address] Care Team Providers Care Rn Telephonic Name Role Phone Jevon Vazquez MD Primary Care Provider [phone] Encounter Details Date Type Department Care Team [...] Hematology/BMT and Cellular Therapy Program [address] [address] 10/14/2024 11:30 AM EDT Office Visit PAV CC Hematology/BMT and Cellular Therapy Program [address] [address] Zonia Hoffman, TOWBOAT OPERATOR 800 [facility] [address] [place] [phone] documented as of this encounter Visit Diagnoses Not on filedocumented in this encounter Additional Health Concerns Assessment Noted Time A fall risk assessment has been complete d for the patient 09/19/2024 8:38 AM EDT A Body Mass Index follow-up plan has been documented for the patient 05/28/2024 1:52 PM EST documented as of this encounter Care Teams Rn Telephonic Relationship Specialty Start Date End Date Jevon Vazquez MD [address] [place] [address] #1 #1 [place] [address] PCP - General 03/23/22 documented as of this encounter
--- OUTSIDE RECORDS SUMMARY | 2024-10-01 09:17 | XMS_ITS | Encounter Summary ---
Author Organization Healthcare Address [address] [place] [address] Care Team Providers Care Clinical Medical Transcriptionist Name Role Phone Jevon Vazquez MD Primary Care Provider [phone] Encounter Details Date Type Department Care Team [...] Hematology/BMT and Cellular Therapy Program [address] [phone] 10/14/2024 11:30 AM EDT Office Visit [facility] Hematology/BMT and Cellular Therapy Program [address] [address] Zonia Hoffman, FRONT CLERK 800 [facility] [address] [place] [phone] documented as of this encounter Visit Diagnoses Not on filedocumented in this encounter Additional Health Concerns Assessment Noted Time A fall risk assessment has been complete d for the patient 09/19/2024 8:38 AM EDT A Body Mass Index follow-up plan has been documented for the patient 05/28/2024 1:52 PM EST documented as of this encounter Care Teams Clinical Medical Transcriptionist Relationship Specialty Start Date End Date Jevon Vazquez MD [address] [place] [address] #1 #1 [place] [address] PCP - General 03/23/22 documented as of this encounter
--- OUTSIDE RECORDS SUMMARY | 2024-10-01 09:17 | XMS_ITS | Encounter Summary ---
Author Organization Healthcare Address [address] [place] [address] Care Team Providers Care Supervisor Plate Forming Name Role Phone Jevon Vazquez MD Primary Care Provider [phone] Encounter Details Date Type Department Care Team [...] Hematology/BMT and Cellular Therapy Program [address] [address] 10/14/2024 11:30 AM EDT Office Visit [facility] Hematology/BMT and Cellular Therapy Program [address] [address] Zonia Hoffman, PURCHASING INTERN 800 [facility] [address] [place] [phone] documented as of this encounter Visit Diagnoses Not on filedocumented in this encounter Additional Health Concerns Assessment Noted Time A fall risk assessment has been complete d for the patient 07/30/2024 8:29 AM EDT A Body Mass Index follow-up plan has been documented for the patient 05/28/2024 1:52 PM EST documented as of this encounter Care Teams Supervisor Plate Forming Relationship Specialty Start Date End Date Jevon Vazquez MD [address] [place] [address] #1 #1 [place] [address] PCP - General 03/23/22 documented as of this encounter
--- OUTSIDE RECORDS SUMMARY | 2024-10-01 09:17 | XMS_ITS | Encounter Summary ---
Author Organization Healthcare Address [address] [place] [address] Care Team Providers Care Lokie Engineer Name Role Phone Jevon Vazquez MD Primary Care Provider [phone] Encounter Details Date Type Department Care Team (Late Contact Info) Description 09/30/2024 Telephone [facility] Hematology/BMT and Cellular Therapy Program [address] [place] [address] Zoraida Good, RN [facility] Social History Tobacco [...] Hematology/BMT and Cellular Therapy Program [address] [place] [address] 10/14/2024 11:30 AM EDT Office Visit [facility] Hematology/BMT and Cellular Therapy Program [address] [place] [phone] Zonia Hoffman, PHOTOGRAPHIC AIDE 800 [facility] [address] [place] [phone] documented as of this encounter Visit Diagnoses Not on filedocumented in this encounter Additional Health Concerns Assessment Noted Time A fall risk assessment has been complete d for the patient 09/30/2024 9:33 AM EDT A Body Mass Index follow-up plan has been documented for the patient 05/28/2024 1:52 PM EST documented as of this encounter Care Teams Lokie Engineer Relationship Specialty Start Date End Date Jevon Vazquez MD [address] [place] [address] #1 #1 [place] [address] PCP - General 03/23/22 documented as of this encounter
--- OUTSIDE RECORDS SUMMARY | 2024-10-01 09:17 | XMS_ITS | Encounter Summary ---
Author Organization Healthcare Address [address] [place] [address] Care Team Providers Care Fire Protection Engineering Technician Name Role Phone Jevon Vazquez MD Primary Care Provider [phone] Encounter Details Date Type Department Care Team [...] Hematology/BMT and Cellular Therapy Program [address] [address] 10/14/2024 11:30 AM EDT Office Visit [facility] Hematology/BMT and Cellular Therapy Program [address] [address] Zonia Hoffman, INSULATOR APPRENTICE 800 [facility] [address] [place] [phone] documented as of this encounter Visit Diagnoses Not on filedocumented in this encounter Additional Health Concerns Assessment Noted Time A fall risk assessment has been complete d for the patient 09/19/2024 8:38 AM EDT A Body Mass Index follow-up plan has been documented for the patient 05/28/2024 1:52 PM EST documented as of this encounter Care Teams Fire Protection Engineering Technician Relationship Specialty Start Date End Date Jevon Vazquez MD [address] [place] [address] #1 [address] [place] [address] PCP - General 03/23/22 documented as of this encounter
--- OUTSIDE RECORDS SUMMARY | 2024-10-01 09:17 | XMS_ITS | Encounter Summary ---
Author Organization Healthcare Address [address] [place] [address] Care Team Providers Care Balance Bridge Inspector Name Role Phone Jevon Vazquez MD Primary Care Provider [phone] Encounter Details Date Type Department Care Team ([facility] st Contact Info) Description 09/01/2024 Telephone [facility] Hematology/BMT and Cellular Therapy Program [address] [address] Zonia Hoffman, SCARIFIER OPERATOR 800 [facility] [address] [place] [phone] Social History Tobacco Use Types Packs/Day Years [...] told her to cancel. Please confirm Callback number:[phone] documented in this encounter Plan of Treatment Upcoming Encounters Date Type Department Care Team (Late st Contact Info) Description 10/14/2024 11:00 AM EDT Clinical Support [facility] Hematology/BMT and Cellular Therapy Program [address] [address] 10/14/2024 11:30 AM EDT Office Visit [facility] Hematology/BMT and Cellular Therapy Program [address] [address] Zonia Hoffman, SCARIFIER OPERATOR 800 [facility] [address] [place] [phone] documented as of this encounter Visit Diagnoses Not on filedocumented in this encounter Additional Health Concerns Assessment Noted Time A fall risk assessment has been complete d for the patient 07/30/2024 8:29 AM EDT A Body Mass Index follow-up plan has been documented for the patient 05/28/2024 1:52 PM EST documented as of this encounter Care Teams Balance Bridge Inspector Relationship Specialty Start Date End Date Jevon Vazquez MD [address] [place] [address] #1 #1 [place] [address] PCP - General 03/23/22 documented as of this encounter
--- OUTSIDE RECORDS SUMMARY | 2024-10-01 09:17 | XMS_ITS | Encounter Summary ---
Author Organization Healthcare Address [address] [place] [address] Care Team Providers Care Photo Equipment Technician Name Role Phone Jevon Vazquez MD Primary Care Provider [phone] Encounter Details Date Type Department Care Team [...] Hematology/BMT and Cellular Therapy Program [address] [address] 10/14/2024 11:30 AM EDT Office Visit [facility] Hematology/BMT and Cellular Therapy Program [address] [address] Zonia Hoffman, SHEAR TENDER 800 [facility] [address] [place] [phone] documented as of this encounter Visit Diagnoses Not on filedocumented in this encounter Additional Health Concerns Assessment Noted Time A fall risk assessment has been complete d for the patient 09/19/2024 8:38 AM EDT A Body Mass Index follow-up plan has been documented for the patient 05/28/2024 1:52 PM EST documented as of this encounter Care Teams Photo Equipment Technician Relationship Specialty Start Date End Date Jevon Vazquez MD [address] [place] [address] #1 #1 [place] [address] PCP - General 03/23/22 documented as of this encounter
[2024-10-01] MEDS: 0.9 % SODIUM CHLORIDE 250 ML 25 ML IV (12:03)
== END 2024-10-01 12:05 | disposition home or self-care (01) ==
LOC: INF 09:13
PROVIDERS: PCP Family Medicine; Visit Provider Internal Medicine Medical Oncology
DX: C92.00 Acute myeloblastic leukemia, not having achieved remission (principal)
CPT/HCPCS: 36430; J1642; J7050; P9016

== ENCOUNTER 2024-10-03 08:59 | Outpatient (CLI) | payer MEDICARE, BC, SELFPAY ==
--- OUTSIDE RECORDS SUMMARY | 2024-09-19 07:30 | XMS_ITS | Encounter Summary ---
Author Organization [facility] Address [address] [place] [address] Care Team Providers Care Cash Applications Associate Name Role Phone Jevon Vazquez MD Primary Care Provider [phone] Reason for Visit * Reason Comments Nurse Visit Encounter Details Date Type Department Care Team ([facility] Contact Info) Description 09/19/2024 7:30 AM EDT Clinical Support [facility] Hematology/BMT and Cellular Therapy Program [address] [phone] Social History Tobacco Use Types Packs/Day Years [...] Upcoming Encounters Date Type Department Care Team ([facility] Contact Info) Description 10/14/2024 11:00 AM EDT Clinical Support [facility] Hematology/BMT and Cellular Therapy Program [address] [phone] 10/14/2024 11:30 AM EDT Office Visit [facility] Hematology/BMT and Cellular Therapy Program [address] [phone] Zonia Hoffman, ANDROID IOS DEVELOPER 800 [facility] [address] [place] [address] documented as of this encounter Visit Diagnoses Not on filedocumented in this encounter Additional Health Concerns Assessment Noted Time A fall risk assessment has been complete d for the patient 09/19/2024 8:38 AM EDT A Body Mass Index follow-up plan has been documented for the patient 05/28/2024 1:52 PM EST documented as of this encounter Care Teams Cash Applications Associate Relationship Specialty Start Date End Date Jevon Vazquez MD [address] [place] [address] #1 #1 [place] [address] PCP - General 03/23/22 documented as of this encounter
--- OUTSIDE RECORDS SUMMARY | 2024-09-19 09:30 | XMS_ITS | Encounter Summary ---
Author Organization Healthcare Address [address] [place] [address] Care Team Providers Care Web Knitter Name Role Phone Jevon Vazquez MD Primary Care Provider [phone] Reason for Visit * Reason Comments Follow-up Encounter Details Date Type Department Care Team (Latest Contact Info) Description 09/19/2024 9:30 AM EDT Clinical Support [facility] [address] [place] [address] Acute myeloid leukemia not having achieved remission [...] Care Team (Late st Contact Info) Description 10/14/2024 11:00 AM EDT Clinical Support [facility] Therapy [facility] [address] [address] 10/14/2024 11:30 AM EDT Office Visit [facility] Therapy [facility] [address] [address] Zonia Hoffman, DIRECTOR MORTGAGE 800 [facility] [address] [address] documented as of this encounter Procedures Procedure Name Priority Date/Time Associated Diagnosis Comments PLATELET COUNT, BLOOD STAT 09/19/2024 10:04 AM EDT PREPARE PLATELETS Routine 09/19/2024 9:0 8 AM EDT documented in this encounter Results * (ABNORMAL) Platelet count (09/19/2024 10:04 AM EDT) Platelet Count 61(L) 155 - 369 10*3/uL LAB HEMATOLOGY METHOD 09/19/2024 10:19 AM EDT [facility] Blood Blood sample taken from central line / Unknown (Port) Long-term Catheter / Unknown 09/19/2024 10:04 AM EDT 09/19/2024 10:18 AM EDT us New Mckinney MD LAB BLOOD ORDERABLES Final Re sult Performing Organization Address [facility] Co de Phone Number [facility] [address] [place] [address] * Transfuse platelets, Irradiated (09/19/2024 10:02 AM EDT) us Lexi Ferraro APRN BLOOD TRANSFUSION ORDERABL ES Final Result * Prepare Leukocyte Reduced Platelets (09/19/2024 9:08 AM EDT) Product Code [id number] CH BLOO D BANK Dispense Status Transfused BLOOD BANK Blood Expiration Date [id number] BLOOD BANK Unit Number [id number] CH B LOOD BANK Product Blood Type 6200 BLOOD BANK Blood Type A+ BLOOD BANK us Provider Not In System BLOOD BANK PRODUCT ORD ERABLES Final Result Performing Organization Address [facility] de Phone Number BLOOD BANK [address] documented in this encounter Visit Diagnoses Diagnosis [...] documented as of this encounter Care Teams Web Knitter Relationship Specialty Start Date End Date Jevon Vazquez MD [address] [place] [address] #1 #1 [place] [address] PCP - General 03/23/22 documented as of this encounter
--- OUTSIDE RECORDS SUMMARY | 2024-09-19 12:00 | XMS_ITS | Encounter Summary ---
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) Procedures Leukemia/Lymphoma - Immunophenotyping by Flow Cytometry New Mckinney MD 800 [facility] Cancer [address] [address] Phone: tel: fax: Referral ID Status Reason Start Date Expiration Date V isits Requested Visits Authorized [id number] Authorized 09/11/2024 03/13/2026 1 1 Encounter Details Date Type Department Care Team (Latest Contact Info) Description 09/19/2024 12:00 PM EDT Procedure Visit [facility] Hematology/BMT and Cellular Therapy Program [address] [address] Lexi Ferraro, RODDY 800 [facility] Cancer [address] [address] Acute myeloid leukemia not having [...] to surronding structures. Alternatives discussed: Delayed treatment [place] protocol: Procedure explained and questions answered to [...] Description 10/14/2024 11:00 AM EDT Clinical Support [facility] Hematology/BMT and Cellular Therapy Program [address] [address] 10/14/2024 11:30 AM EDT Office Visit [facility] Hematology/BMT and Cellular Therapy Program [address] [address] Zonia Hoffman APRN 800 [facility]tr [address] [place] [address] documented as of this encounter Procedures Procedure [...] to surronding structures. Alternatives discussed: Delayed treatment [place] protocol: Procedure explained and questions answered to [...] Type Bone Marrow 09/24/2024 2:37 PM EDT [facility] Clinical Indication Myelodysplastic Syndrome 09/24/2024 2:37 PM EDT [facility] Specimen Adequacy Adequate 025 2:37 PM EDT [facility] Chromosome Analysis Result Giemsa-banded metaphase cells from unstimulated bone marrow cultures showed a 46,XX[20] chromosome pattern. 09/24/2024 2:37 PM EDT [facility] Interpretation Normal female chromosome analysis. No clonal abnormalities were detected at current resolution. Clinical correlation is recommended. # cells counted = 20 # cells analyzed = 20 # cells karyotyped = 2 Band resolution: 450-525 09/24/2024 2:37 PM EDT [facility] Pathologist Signature Reviewed by: Corey Tejada 09/24/2024 2:37 PM EDT [facility] Bone Marrow Non-blood Collection / Unknown 09/19/2024 7:29 AM EDT 09/19/2024 12:35 PM EDT us New Mckinney MD LAB CYTOGENETICS ORDERABLES F inal Result [facility] [address] [place] [address] * Myeloid Focused Panel, 50 gene (09/19/2024 7:29 AM EDT) Interpretation The following two (2) genes, TP53 and DNMT3A, with persistent variants have been detected in this bone marrow specimen. The variant, p.Rms586Ppt, in TP53 gene and the variant, p.Dzn981zps, in the RUNX 1 gene are not detectable at current cutoff and coverage established in this lab. Gene: TP53 Mutation: c.814G>A; p.Sui546Iyn Allele Frequency (%): 37% (45% Dec 2023) ID: [id number] Gene: DNMT3A Mutation: c.1522delC; p.Egr197DydflRwn22 3 Allele Frequency (%): 36% (48% Dec 2023) Additional Details on Mutation Identified: Gene Transcript Genome Chrom Coordinate RefVar DNMT3A NM_[id number] Hg19 2 [id number] delC TP53 NM_000546.5 Hg19 17 [id number] G>A 09/29/2024 4:05 PM EDT [facility] Methodology The following 50 genes [...] then sequenced on the Illumina NextSeq 2000 ([employer], [employer]). A custom bioinformatics pipeline aligns [...] of hematologic malignancies. 09/29/2024 4:05 PM EDT [facility] Disclaimer This test was developed and its performance characteristics determined by the Clinical Molecular and Genomic Pathology Laboratory at the [facility]. It has not been cleared or [...] clinical laboratory testing. 09/29/2024 4:05 PM EDT [facility] Pathologist Signature Reviewed by: Corey Tejada 09/29/2024 4:05 PM EDT [facility] Bone Marrow Specimen from bone marrow obtained by aspiration / Unknown Non-blood Collection / Unknown 09/19/2024 7:29 AM EDT 09/19/2024 12:03 PM EDT us New Mckinney MD LAB MOLECULAR DIAGNOSTICS ORD ERABLES Final Result [facility] [address] [place] [address], * Leukemia/Lymphoma - Immunophenotyping by Flow Cytometry (09/19/2024 7:29 AM EDT) Clinical Indication AML 09/22/2024 10:29 AM EDT [facility] Flow Cytometry Interpretation A. BONE MARROW FOR FLOW CYTOMETRY: - MIXED MARROW ELEMENTS WITH NO EVIDENCE OF INCREASED BLASTS OR ABNORMAL LYMPHOID POPULATIONS, SEE COMMENT. 09/22/2024 10:29 AM EDT [facility] Comments CD45/side scatter analysis shows [...] surface light chains 09/22/2024 10:29 AM EDT [facility] Disclaimer This test was developed and its performance characteristics determined by the Immuno-Molecular Pathology Laboratory at the [facility]. It has not been cleared or [...] on the report. 09/22/2024 10:29 AM EDT [facility] Pathologist Signature Reviewed by: Lisandra Epstein MD 09/22/2024 10:29 AM EDT [facility] MRD Indicated Test Not Indicated 12/2024 10:29 AM EDT [facility] Bone Marrow Specimen from bone marrow obtained by aspiration / Unknown Non-blood Collection / Unknown 09/19/2024 7:29 AM EDT 09/19/2024 12:13 PM EDT us New Mckinney MD LAB FLOW CYTOMETRY ORDERABLES Final Result [facility] [address] [place] [address] * (ABNORMAL) CBC and differential (09/19/2024 7:29 AM EDT) WBC Count 2.70(L) 3.70 - 10.30 10*3/uL LAB HEMATOLOGY METHOD 09/19/2024 9:13 AM EDT LAB RBC Count 1.86(L) 3.90 - 5.20 10*6/uL LAB HEMATOLOGY METHOD 09/19/2024 9:13 AM EDT LAB HGB 7.1(L) 11.2 - 15.7 g/dL LAB HEMATOLOGY METHOD 09/19/2024 9:13 AM EDT LAB HCT 21.5(L) 34.0 - 45.0 % LAB HEMATOLOGY METHOD 09/19/2024 9:13 AM EDT LAB Platelet Count 14(LL) 155 - 369 10*3/uL LAB HEMATOLOGY METHOD 09/19/2024 9:13 AM EDT LAB MCV 116(H) 79 - 98 fL LAB HEMATOLOGY METHOD 09/19/2024 9:13 AM EDT LAB MCH 38.2(H) 26.0 - 32.0 pg LAB HEMATOLOGY METHOD 09/19/2024 9:13 AM EDT LAB MCHC 33.0 30.7 - 35.5 g/dL LAB HEMATOLOGY METHOD 09/19/2024 9:13 AM EDT LAB RDW 21.8(H) 11.5 - 14.5 % LAB HEMATOLOGY METHOD 09/19/2024 9:13 AM EDT LAB MPV 13.5(H) 8.8 - 12.5 fL LAB HEMATOLOGY METHOD 09/19/2024 9:13 AM EDT LAB nRBC 0.0 <=0.0 per 100 WBCs LAB HEMATOLOGY METHOD 09/19/2024 9:13 AM EDT LAB Differential Type Automated LAB HEMATOLOGY METHOD 09/19/2024 9:13 AM EDT LAB Neutrophils % 51 % LAB HEMATOLOGY METHOD 09/19/2024 9:13 AM EDT LAB Lymphocytes % 41 % LAB HEMATOLOGY METHOD 09/19/2024 9:13 AM EDT LAB Monocytes % 7 % LAB HEMATOLOGY METHOD 09/19/2024 9:13 AM EDT LAB Eosinophils % 1 % LAB HEMATOLOGY METHOD 09/19/2024 9:13 AM EDT LAB Basophils % 0 % LAB HEMATOLOGY METHOD 09/19/2024 9:13 AM EDT LAB Immature Granulocytes % 0 % LAB HEMATOLOGY METHOD 09/19/2024 9:13 AM EDT LAB Neutrophils Absolute 1.35(L) 1.60 - 6.10 10*3/uL LAB HEMATOLOGY METHOD 09/19/2024 9:13 AM EDT [facility] Lymphocytes Absolute 1.10(L) 1.20 - 3.90 10*3/uL LAB HEMATOLOGY METHOD 09/19/2024 9:13 AM EDT [facility] Monocytes Absolute 0.20(L) 0.30 - 0.90 10*3/uL LAB HEMATOLOGY METHOD 09/19/2024 9:13 AM EDT LAB Eosinophils Absolute 0.03 0.00 - 0.50 10*3/uL LAB HEMATOLOGY METHOD 09/19/2024 9:13 AM EDT LAB Basophils Absolute 0.01 0.00 - 0.10 10*3/uL LAB HEMATOLOGY METHOD 09/19/2024 9:13 AM EDT LAB Immature Granulocytes Absolute 0.01 0.00 - 0.06 10*3/uL LAB HEMATOLOGY METHOD 09/19/2024 9:13 AM EDT LAB Blood Blood sample taken from central line / Unknown (Port) Long-term Catheter / Unknown 09/19/2024 7:29 AM EDT 09/19/2024 8:08 AM EDT Narrative [facility] - 09/19/2024 9:13 AM EDT Therapeutic decision making should be based on absolute values, rather than percentages. New Mckinney MD LAB BLOOD ORDERABLES Final Re sult LAB [address] [place] [id number] * Bone marrow exam (09/19/2024 7:29 AM EDT) Case Report Bone Marrow Case: [id number] Authorizing Provider: New Mckinney MD Collected: 09/19/2024 0729 Ordering Location: [facility] Hematology/BMT and Received: 09/19/2024 1216 Cellular Therapy Program Pathologist: Lisandra Epstein MD Specimens: A) - Bone Marrow Aspirate, right B) - Bone Marrow Biopsy, right C) - Peripheral Blood for Bone Marrow 3:15 PM EDT [facility] Cytogenetics Report, Addendum Chromosome Analysis Result Giemsa-banded metaphase cells from unstimulated bone marrow cultures showed a 46,XX[20] chromosome pattern. Interpretation Normal female chromosome analysis. No clonal abnormalities were detected at current resolution. Clinical correlation is recommended. 3:15 PM EDT [facility] Addendum electronically signed by Lisandra Epstein MD on 09/24/2024 at 1630 EDT Addendum Interpretation The following two (2) genes, TP53 and DNMT3A, with persistent variants have been detected in this bone marrow specimen. The variant, p.Gaa827Iwx, in TP53 gene and the variant, p.Wce484wcy, in the RUNX 1 gene are not detectable at current cutoff and coverage established in this lab. Gene: TP53 Mutation: c.814G>A; p.Prk828Twj Allele Frequency (%): 37% (45% Dec 2023) ID: [id number] Gene: DNMT3A Mutation: c.1522delC; p.Qqh307WpvuyHzc1 43 Allele Frequency (%): 36% (48% Dec 2023) Additional Details on Mutation Identified: 3:15 PM EDT [facility] Addendum electronically signed by Lisandra Epstein MD on 09/30/2024 at 1515 EDT Final Diagnosis PERIPHERAL BLOOD AND BONE MARROW, RIGHT POSTERIOR ILIAC CREST, (ASPIRATE SMEAR, AND CORE BIOPSY): - HYPOCELLULAR BONE MARROW WITH MARKEDLY DECREASED MEGAKARYOCYTES; NO SIGNIFICANT DYSPOIESIS OR INCREASE IN BLASTS. 3:15 PM EDT [facility] at 1453 EDT Clinical Information AML 09/14 3:15 PM EDT [facility] CBC and Differential PERIPHERAL [...] blasts are not seen. 3:15 PM EDT [facility] Bone Marrow Differential BONE MARROW DIFFERENTIAL: 200 cells Normal Patient Neutrophils 15-50 34 Metamyelocytes 4-19 3 Myelocytes 1-18 10 Promyelocytes 1-8 1 Blasts 0-2 1 Monocytes 0-5 4 Erythroid 16-38 22 Lymphocytes 3-24 13 Eosinophils 0-6 8 Basophils 0-2 0 Plasma cells 0-4 4 Other 5 3:15 PM EDT [facility] Bone Marrow Aspirate and [...] Bone trabeculae are unremarkable. 3:15 PM EDT [facility] Special and Immunohistochemical Stains Special Stain: A1-1 Vazquez-Giemsa A1-2 Vazquez-Giemsa A1-3 Vazquez-Giemsa C1-1 Vazquez-Giemsa IHC: B1-2 CD34 All controls show appropriate reactivity. All immunohistochemis try, in situ hybridization, and histochemical tests were developed by and are performed at the [facility], [address] [place] [address]. All tests reported here, except those addressing [...] negativity on decalcified specimens. 3:15 PM EDT [facility] Flow Cytometry Interpretation MIXED MARROW ELEMENTS WITH NO EVIDENCE OF INCREASED BLASTS OR ABNORMAL LYMPHOID POPULATIONS ([id number]). 3:15 PM EDT [facility] CYTOGENETICS/MOLECULA R INTERPRETATION Correlation with cytogenetic/molec ular analysis is suggested. 3:15 PM EDT [facility] Gross Description B. RIGHT A single specimen is received in formalin labeled bone marrow biopsy right posterior iliac crest and consists of 2 piece(s) of red/white tissue measuring 2.1/0.3 cm in length 0.2 cm in diameter. The specimen is submitted in to Histology for decalcification and routine processing. Cold Time: <1m 3:15 PM EDT [facility] Note: A resident was involved in the service. I attest I examined the relevant preparations for the specimens and confirmed the diagnosis or interpretation. 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
--- OUTSIDE RECORDS SUMMARY | 2024-09-30 09:00 | XMS_ITS | Encounter Summary ---
Author Organization Healthcare Address [address] [place] [address] Care Team Providers Care Coat Feller Name Role Phone Jevon Vazquez MD Primary Care Provider [phone] Reason for Visit * Reason Comments Labs Only Encounter Details Date Type Department Care Team ([facility] Contact Info) Description 09/30/2024 9:00 AM EDT Clinical Support [facility] Hematology/BMT and Cellular Therapy Program [address] [phone] Jyoti Kemp Acute myeloid leukemia not having [...] [facility] Info) Description 10/14/2024 11:00 AM EDT Clinical Support [facility] Hematology/BMT and Cellular Therapy Program [address] [phone] 10/14/2024 11:30 AM EDT Office Visit [facility] Hematology/BMT and Cellular Therapy Program [address] [phone] Zonia Hoffman, [facility] 800 [facility] [address] [place] [phone] documented as of this encounter Procedures Procedure [...] - 99 mg/dL 09/30/2024 10:20 AM EDT [facility] BUN, Plasma 21 8 - 23 mg/dL 09/30/2024 10:20 AM EDT [facility] Creatinine, Plasma 1.00 0.60 - 1.10 mg/dL 09/30/2024 10:20 AM EDT [facility] BUN/Creatinine Ratio 21 09/30/2024 10:20 AM EDT [facility] Sodium, Plasma 137 136 - 145 mmol/L 09/30/2024 10:20 AM EDT [facility] Potassium, Plasma 3.8 3.6 - 4.9 mmol/L 09/30/2024 10:20 AM EDT [facility] Chloride, Plasma 107 97 - 107 mmol/L 09/30/2024 10:20 AM EDT [facility] CO2, Plasma 22 22 - 29 mmol/L 09/30/2024 10:20 AM EDT [facility] Anion Gap 8 6 - 16 mmol/L 09/30/2024 10:20 AM EDT [facility] Total Calcium, Plasma 9.8 8.9 - 10.2 mg/dL 09/30/2024 10:20 AM EDT [facility] Total Protein 5.9(L) 6.3 - 7.9 g/dL 09/30/2024 10:20 AM EDT [facility] Albumin, Plasma 3.8 3.5 - 5.2 g/dL 09/30/2024 10:20 AM EDT [facility] AST, Plasma 28 10 - 35 U/L 09/30/2024 10:20 AM EDT [facility] ALT, Plasma 14 10 - 35 U/L 09/30/2024 10:20 AM EDT [facility] Alkaline Phosphatase, Plasma 34(L) 46 - 142 U/L 09/30/2024 10:20 AM EDT [facility] Total Bilirubin, Plasma 0.3 0.2 - 1.1 mg/dL 09/30/2024 10:20 AM EDT [facility] eGFRcr 59.6 mL/min/1.7 3m*2 09/30/2024 10:20 AM EDT [facility] Comment:Reported eGFRcr in m L/min/1.73m2 is based the CKD-EPI 2020 equation that does not use a race coefficient. Blood Venous blood specimen / Unknown (Port) Long-term Catheter / Unknown 09/30/2024 9:11 AM EDT 09/30/2024 9:50 AM EDT us Zonia Hoffman APRN LAB BLOOD ORDERABLES Final Res ult [facility] [address] [place] [address] * (ABNORMAL) CBC and Differential (09/30/2024 9:11 AM EDT) WBC Count 3.34(L) 3.70 - 10.30 10*3/uL LAB HEMATOLOGY METHOD 09/30/2024 11:07 AM EDT [facility] RBC Count 1.91(L) 3.90 - 5.20 10*6/uL LAB HEMATOLOGY METHOD 09/30/2024 11:07 AM EDT [facility] HGB 7.7(L) 11.2 - 15.7 g/dL LAB HEMATOLOGY METHOD 09/30/2024 11:07 AM EDT [facility] HCT 22.8(L) 34.0 - 45.0 % LAB HEMATOLOGY METHOD 09/30/2024 11:07 AM EDT [facility] Platelet Count 17(LL) 155 - 369 10*3/uL LAB HEMATOLOGY METHOD 09/30/2024 11:07 AM EDT [facility] MCV 119(H) 79 - 98 fL LAB HEMATOLOGY METHOD 09/30/2024 11:07 AM EDT [facility] MCH 40.3(H) 26.0 - 32.0 pg LAB HEMATOLOGY METHOD 09/30/2024 11:07 AM EDT [facility] MCHC 33.8 30.7 - 35.5 g/dL LAB HEMATOLOGY METHOD 09/30/2024 11:07 AM EDT [facility] RDW 18.7(H) 11.5 - 14.5 % LAB HEMATOLOGY METHOD 09/30/2024 11:07 AM EDT [facility] MPV 11.1 8.8 - 12.5 fL LAB HEMATOLOGY METHOD 09/30/2024 11:07 AM EDT [facility] nRBC 0.0 <=0.0 per 100 WBCs LAB HEMATOLOGY METHOD 09/30/2024 11:07 AM EDT [facility] Differential Type Automated LAB HEMATOLOGY METHOD 09/30/2024 11:07 AM EDT [facility] Neutrophils % 65 % LAB HEMATOLOGY METHOD 09/30/2024 11:07 AM EDT [facility] Lymphocytes % 26 % LAB HEMATOLOGY METHOD 09/30/2024 11:07 AM EDT [facility] Monocytes % 7 % LAB HEMATOLOGY METHOD 09/30/2024 11:07 AM EDT [facility] Eosinophils % 1 % LAB HEMATOLOGY METHOD 09/30/2024 11:07 AM EDT [facility] Basophils % 1 % LAB HEMATOLOGY METHOD 09/30/2024 11:07 AM EDT [facility] Immature Granulocytes % 0 % LAB HEMATOLOGY METHOD 09/30/2024 11:07 AM EDT [facility] Neutrophils Absolute 2.17 1.60 - 6.10 10*3/uL LAB HEMATOLOGY METHOD 09/30/2024 11:07 AM EDT [facility] Lymphocytes Absolute 0.87(L) 1.20 - 3.90 10*3/uL LAB HEMATOLOGY METHOD 09/30/2024 11:07 AM EDT [facility] Monocytes Absolute 0.24(L) 0.30 - 0.90 10*3/uL LAB HEMATOLOGY METHOD 09/30/2024 11:07 AM EDT [facility] Eosinophils Absolute 0.03 0.00 - 0.50 10*3/uL LAB HEMATOLOGY METHOD 09/30/2024 11:07 AM EDT [facility] Basophils Absolute 0.02 0.00 - 0.10 10*3/uL LAB HEMATOLOGY METHOD 09/30/2024 11:07 AM EDT [facility] Immature Granulocytes Absolute 0.01 0.00 - 0.06 10*3/uL LAB HEMATOLOGY METHOD 09/30/2024 11:07 AM EDT [facility] Blood Venous blood specimen / Unknown (Port) Long-term Catheter / Unknown 09/30/2024 9:11 AM EDT 09/30/2024 9:34 AM EDT Narrative [facility] - 09/30/2024 11:07 AM EDT Therapeutic decision making should be based on absolute values, rather than percentages. 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
--- OUTSIDE RECORDS SUMMARY | 2024-09-30 09:30 | XMS_ITS | Encounter Summary ---
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 female. Referring Physician: Zonia Hoffman, IRRIGATION SERVICE TECHNICIAN 800 [facility] [address] [address] Primary Care Provider: Jevon Vazquez MD Chief [...] k/??L. 12/2023- seen by Dr. 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 Next generation sequencing: Abnormal: TP53 (c.814G>A; p.[id number]) frequency 45%, DMNT3A (c.1522delC; p.[id number]) frequency 48%, RUNX1 (c.336_338delGCC; p.[id number]) frequency 35% Azacitidine + Venetoclax Cycle 1: [...] - Continue local lab checks MWF at [facility] Allogenic transplant planning. 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 However, given her older age > 70, she would benefit from a geriatric BMT program and will make referrals should she be interested. Expected pancytopenia related to chemotherapy/AML. Check CBC x 3 times/week at [facility] Labs reviewed today, Hgb 7.7 , platelets [...] charts, reviewing results, and documenting. RODDY Cristina [facility] HEMATOLOGY/BMT AND CELLULAR THERAPY PROGRAM 800 [facility] [address] 40 minutes was spent on this encounter; [...] ([facility] st Contact Info) Description 10/14/2024 11:00 AM EDT Clinical Support [facility] Hematology/BMT and Cellular Therapy Program 750 [facility], [address] [place] [address] [place] [address] 10/14/2024 11:30 AM EDT Office Visit [facility] Hematology/BMT and Cellular Therapy Program [address] [place] [address] Zonia Hoffman, IRRIGATION SERVICE TECHNICIAN 800 [facility] [address] [place] [phone] documented as of this encounter Results * (ABNORMAL) Comprehensive Metabolic Panel, Plasma (09/30/2024 9:11 AM EDT) Glucose, Plasma 135(H) 74 - 99 mg/dL 09/30/2024 10:20 AM EDT [facility] BUN, Plasma 21 8 - 23 mg/dL 09/30/2024 10:20 AM EDT [facility] Creatinine, Plasma 1.00 0.60 - 1.10 mg/dL 09/30/2024 10:20 AM EDT [facility] BUN/Creatinine Ratio 21 09/30/2024 10:20 AM EDT [facility] Sodium, Plasma 137 136 - 145 mmol/L 09/30/2024 10:20 AM EDT [facility] Potassium, Plasma 3.8 3.6 - 4.9 mmol/L 09/30/2024 10:20 AM EDT [facility] Chloride, Plasma 107 97 - 107 mmol/L 09/30/2024 10:20 AM EDT [facility] CO2, Plasma 22 22 - 29 mmol/L 09/30/2024 10:20 AM EDT [facility] Anion Gap 8 6 - 16 mmol/L 09/30/2024 10:20 AM EDT [facility] Total Calcium, Plasma 9.8 8.9 - 10.2 mg/dL 09/30/2024 10:20 AM EDT [facility] Total Protein 5.9(L) 6.3 - 7.9 g/dL 09/30/2024 10:20 AM EDT [facility] Albumin, Plasma 3.8 3.5 - 5.2 g/dL 09/30/2024 10:20 AM EDT [facility] AST, Plasma 28 10 - 35 U/L 09/30/2024 10:20 AM EDT [facility] ALT, Plasma 14 10 - 35 U/L 09/30/2024 10:20 AM EDT [facility] Alkaline Phosphatase, Plasma 34(L) 46 - 142 U/L 09/30/2024 10:20 AM EDT [facility] Total Bilirubin, Plasma 0.3 0.2 - 1.1 mg/dL 09/30/2024 10:20 AM EDT [facility] eGFRcr 59.6 mL/min/1.7 3m*2 09/30/2024 10:20 AM EDT [facility] Comment:Reported eGFRcr in m L/min/1.73m2 is based the CKD-EPI 2020 equation that does not use a race coefficient. Blood Venous blood specimen / Unknown (Port) Long-term Catheter / Unknown 09/30/2024 9:11 AM EDT 09/30/2024 9:50 AM EDT us Zonia Hoffman IRRIGATION SERVICE TECHNICIAN LAB BLOOD ORDERABLES Final Res ult [facility] [address] [place] [address] * (ABNORMAL) CBC and Differential (09/30/2024 9:11 AM EDT) WBC Count 3.34(L) 3.70 - 10.30 10*3/uL LAB HEMATOLOGY METHOD 09/30/2024 11:07 AM EDT [facility] RBC Count 1.91(L) 3.90 - 5.20 10*6/uL LAB HEMATOLOGY METHOD 09/30/2024 11:07 AM EDT [facility] HGB 7.7(L) 11.2 - 15.7 g/dL LAB HEMATOLOGY METHOD 09/30/2024 11:07 AM EDT [facility] HCT 22.8(L) 34.0 - 45.0 % LAB HEMATOLOGY METHOD 09/30/2024 11:07 AM EDT [facility] Platelet Count 17(LL) 155 - 369 10*3/uL LAB HEMATOLOGY METHOD 09/30/2024 11:07 AM EDT [facility] MCV 119(H) 79 - 98 fL LAB HEMATOLOGY METHOD 09/30/2024 11:07 AM EDT [facility] MCH 40.3(H) 26.0 - 32.0 pg LAB HEMATOLOGY METHOD 09/30/2024 11:07 AM EDT [facility] MCHC 33.8 30.7 - 35.5 g/dL LAB HEMATOLOGY METHOD 09/30/2024 11:07 AM EDT [facility] RDW 18.7(H) 11.5 - 14.5 % LAB HEMATOLOGY METHOD 09/30/2024 11:07 AM EDT [facility] MPV 11.1 8.8 - 12.5 fL LAB HEMATOLOGY METHOD 09/30/2024 11:07 AM EDT [facility] nRBC 0.0 <=0.0 per 100 WBCs LAB HEMATOLOGY METHOD 09/30/2024 11:07 AM EDT [facility] Differential Type Automated LAB HEMATOLOGY METHOD 09/30/2024 11:07 AM EDT [facility] Neutrophils % 65 % LAB HEMATOLOGY METHOD 09/30/2024 11:07 AM EDT [facility] Lymphocytes % 26 % LAB HEMATOLOGY METHOD 09/30/2024 11:07 AM EDT [facility] Monocytes % 7 % LAB HEMATOLOGY METHOD 09/30/2024 11:07 AM EDT [facility] Eosinophils % 1 % LAB HEMATOLOGY METHOD 09/30/2024 11:07 AM EDT [facility] Basophils % 1 % LAB HEMATOLOGY METHOD 09/30/2024 11:07 AM EDT [facility] Immature Granulocytes % 0 % LAB HEMATOLOGY METHOD 09/30/2024 11:07 AM EDT [facility] Neutrophils Absolute 2.17 1.60 - 6.10 10*3/uL LAB HEMATOLOGY METHOD 09/30/2024 11:07 AM EDT [facility] Lymphocytes Absolute 0.87(L) 1.20 - 3.90 10*3/uL LAB HEMATOLOGY METHOD 09/30/2024 11:07 AM EDT [facility] Monocytes Absolute 0.24(L) 0.30 - 0.90 10*3/uL LAB HEMATOLOGY METHOD 09/30/2024 11:07 AM EDT [facility] Eosinophils Absolute 0.03 0.00 - 0.50 10*3/uL LAB HEMATOLOGY METHOD 09/30/2024 11:07 AM EDT [facility] Basophils Absolute 0.02 0.00 - 0.10 10*3/uL LAB HEMATOLOGY METHOD 09/30/2024 11:07 AM EDT [facility] Immature Granulocytes Absolute 0.01 0.00 - 0.06 10*3/uL LAB HEMATOLOGY METHOD 09/30/2024 11:07 AM EDT [facility] Blood Venous blood specimen / Unknown (Port) Long-term Catheter / Unknown 09/30/2024 9:11 AM EDT 09/30/2024 9:34 AM EDT Narrative [facility] - 09/30/2024 11:07 AM EDT Therapeutic decision making should be based on absolute values, rather than percentages. us Zonia Hoffman IRRIGATION SERVICE TECHNICIAN LAB BLOOD ORDERABLES Final Res ult [facility] [address] [place] [address] documented in this encounter Visit Diagnoses Diagnosis [...] as of this encounter Care Teams Electronic Musical Instrument Repairer Relationship Specialty Start Date End Date Jevon Vazquez MD [address] [place] [address] #1 #1 [place] [address] PCP - General 03/23/22 documented as of this encounter
[2024-10-03 09:02] VITALS: BMI 21.8
--- OUTSIDE RECORDS SUMMARY | 2024-10-03 09:02 | XMS_ITS | Encounter Summary ---
Author Organization Healthcare Address [address] [place] [address] Care Team Providers Care Direct Response Consultant Name Role Phone Jevon Vazquez MD Primary Care Provider [phone] Encounter Details Date Type Department Care Team [...] Hematology/BMT and Cellular Therapy Program [address] [address] 10/14/2024 11:30 AM EDT Office Visit [facility] Hematology/BMT and Cellular Therapy Program [address] [address] Zonia Hoffman, SIZING END BANDER 800 [facility] [address] [place] [phone] documented as of this encounter Visit Diagnoses Not on filedocumented in this encounter Additional Health Concerns Assessment Noted Time A fall risk assessment has been complete d for the patient 07/30/2024 8:29 AM EDT A Body Mass Index follow-up plan has been documented for the patient 05/28/2024 1:52 PM EST documented as of this encounter Care Teams Direct Response Consultant Relationship Specialty Start Date End Date Jevon Vazquez MD [address] [place] [address] #1 #1 [place] [address] PCP - General 03/23/22 documented as of this encounter
--- OUTSIDE RECORDS SUMMARY | 2024-10-03 09:02 | XMS_ITS | Encounter Summary ---
Author Organization Healthcare Address [address] [place] [address] Care Team Providers Care Entry Level Account Manager Name Role Phone Jevon aVzquez MD Primary Care Provider [phone] Encounter Details Date Type Department Care Team [...] Hematology/BMT and Cellular Therapy Program [address] [address] 10/14/2024 11:30 AM EDT Office Visit [facility] Hematology/BMT and Cellular Therapy Program [address] [address] Zonia Hoffman, BRASS W[employer] INSTRUMENTS TUBE BENDER 800 [facility] [address] [place] [phone] documented as of this encounter Visit Diagnoses Not on filedocumented in this encounter Additional Health Concerns Assessment Noted Time A fall risk assessment has been complete d for the patient 07/30/2024 8:29 AM EDT A Body Mass Index follow-up plan has been documented for the patient 05/28/2024 1:52 PM EST documented as of this encounter Care Teams Entry Level Account Manager Relationship Specialty Start Date End Date Jevon Vazquez MD [address] [place] [address] #1 #1 [place] [address] PCP - General 03/23/22 documented as of this encounter
--- OUTSIDE RECORDS SUMMARY | 2024-10-03 09:02 | XMS_ITS | Encounter Summary ---
Author Organization Healthcare Address [address] [place] [address] Care Team Providers Care Refrigeration Mechanic Name Role Phone Jevon Vazquez MD Primary Care Provider [phone] Encounter Details Date Type Department Care Team [...] Hematology/BMT and Cellular Therapy Program [address] [address] 10/14/2024 11:30 AM EDT Office Visit [facility] Hematology/BMT and Cellular Therapy Program [address] [address] Zonia Hoffman, CUSTOMER SERVICE CLERK 800 [facility] [address] [place] [phone] documented as of this encounter Visit Diagnoses Not on filedocumented in this encounter Additional Health Concerns Assessment Noted Time A fall risk assessment has been complete d for the patient 07/30/2024 8:29 AM EDT A Body Mass Index follow-up plan has been documented for the patient 05/28/2024 1:52 PM EST documented as of this encounter Care Teams Refrigeration Mechanic Relationship Specialty Start Date End Date Jevon Vazquez MD [address] [place] [address] #1 #1 [place] [address] PCP - General 03/23/22 documented as of this encounter
--- OUTSIDE RECORDS SUMMARY | 2024-10-03 09:02 | XMS_ITS | Encounter Summary ---
Author Organization Healthcare Address [address] [place] [address] Care Team Providers Care Mortising Machine Operator Name Role Phone Jevon Vazquez MD Primary Care Provider [phone] Encounter Details Date Type Department Care Team (Late Contact Info) Description 09/30/2024 Telephone [facility] Hematology/BMT and Cellular Therapy Program [address] [place] [address] Zoraida Good, RN [facility] Social History Tobacco Use [...] Hematology/BMT and Cellular Therapy Program [address] [place] [address] 10/14/2024 11:30 AM EDT Office Visit [facility] Hematology/BMT and Cellular Therapy Program [address] [place] [address] Zonia Hoffman, [employer] ADVISOR 800 [facility] [address] [place] [phone] documented as of this encounter Visit Diagnoses Not on filedocumented in this encounter Additional Health Concerns Assessment Noted Time A fall risk assessment has been complete d for the patient 09/30/2024 9:33 AM EDT A Body Mass Index follow-up plan has been documented for the patient 05/28/2024 1:52 PM EST documented as of this encounter Care Teams Mortising Machine Operator Relationship Specialty Start Date End Date Jevon Vazquez MD [address] [place] [address] #1 #1 [place] [address] PCP - General 03/23/22 documented as of this encounter
--- OUTSIDE RECORDS SUMMARY | 2024-10-03 09:02 | XMS_ITS | Clinical Summary ---
Author Organization [facility] Address [address] [place] [address] Care Team Providers Care Sand Temperer Name Role Phone David Vazquez Primary Care Provider [phone] Allergies No known active allergies Medications atorvastatin [...] series) 2025 Medical Devices Implanted Type Area Salesperson Household Appliances Device Identifier Shelf Expiration Date Model / Serial / Lot Mis Ply Scr 6.5x50mm - [id number] Implanted:Qty : 1 on 01/30/2023 by Ivan Bartholomew MD at [facility] Screw N/A: Spine Lumbar [employer] [id number] / / Mis Ply Scr 6.5x45mm - [id number] Implanted:Qty : 3 on 01/30/2023 by Ivan Bartholomew MD at [facility] Screw N/A: Spine Lumbar [employer] [id number] / / Reline Mas Reduction Screw 7.5x45 - [id number] Implanted:Qty : 2 on 01/30/2023 by Ivan Bartholomew MD at [facility] Screw N/A: Spine Lumbar [employer] [id number] / / Grft Dbm Vesuvius Putty 5cc - [id number] Implanted:Qty : 1 on 01/30/2023 by Ivan Bartholomew MD at [facility] [employer] [id number] 04/20/2025 [id number] P / [id number] / Putty I-Factor 5.0cc - [id number] Implanted:Qty : 1 on 01/30/2023 by Ivan Bartholomew MD at [facility] N/A: Spine Lumbar [employer] 03/15/2025 [id number] / / [id number] Modulus Xlw [id number] 10 Degree - [id number] Implanted:Qty : 1 on 01/30/2023 by Ivan Bartholomew MD at [facility] N/A: Spine Lumbar [employer] [id number] / / [id number] Modulus Xlw [id number] - [id number] Implanted:Qty : 1 on 01/30/2023 by Ivan Bartholomew MD at [facility] N/A: Spine Lumbar [employer] 09/28/2027 [id number] / / [id number] Reln Lock Scr 5.5mm Opn Tulip - [id number] Implanted:Qty : 6 on 01/30/2023 by Ivan Bartholomew MD at [facility] N/A: Spine Lumbar [employer] [id number] / / Reln Mas Ti Petar 5.5x70mm - [id number] Implanted:Qty : 2 on 01/30/2023 by Ivan Bartholomew MD at [facility] N/A: Spine Lumbar [employer] [id number] / / Procedures Procedure Name Priority Date/Time [...] Glycohemoglobin Standardization program (NGSP) and [facility] Estimated Average Glucose 126(H) 68 - 114 mg/dL [facility] Whole Blood (Blood) 01/24/2023 2:32 PM EDT 01/24/2023 6:00 PM EDT us Ivan Bartholomew MD CHEMISTRY ORDERABLES Fin al Result [facility] [address] * (ABNORMAL) BASIC METABOLIC PANEL (BMP=EP1) [...] [facility] [address] from Last 3 Months or Most Recently Relevant to Health Maintenance Insurance MEDICARE PART A [facility] [address] [address] [place] [address] ANTH Advance Directives For more information, please contact: [phone] * Full Code (Latest Code Status on File) Date Activated Date Inactivated Comments 01/30/2023 9:13 AM No automated chest compression devices for VAD Patients Care Teams Sand Temperer Relationship Specialty Start Date End Date David Vazquez [address] [place] [phone] PCP - General 01/24/23
--- OUTSIDE RECORDS SUMMARY | 2024-10-03 09:02 | XMS_ITS | Encounter Summary ---
Author Organization Healthcare Address [address] [place] [address] Care Team Providers Care Tower Erector Helper Name Role Phone Jevon Vazquez MD Primary Care Provider [phone] Encounter Details Date Type Department Care Team [...] Hematology/BMT and Cellular Therapy Program [address] [address] 10/14/2024 11:30 AM EDT Office Visit [facility] Hematology/BMT and Cellular Therapy Program [address] [address] Zonia Hoffman, MARKET DEVELOPMENT ANALYST 800 [facility] [address] [place] [phone] documented as of this encounter Visit Diagnoses Not on filedocumented in this encounter Additional Health Concerns Assessment Noted Time A fall risk assessment has been complete d for the patient 07/30/2024 8:29 AM EDT A Body Mass Index follow-up plan has been documented for the patient 05/28/2024 1:52 PM EST documented as of this encounter Care Teams Tower Erector Helper Relationship Specialty Start Date End Date Jevon Vazquez MD [address] [place] [address] #1 #1 [place] [address] PCP - General 03/23/22 documented as of this encounter
--- OUTSIDE RECORDS SUMMARY | 2024-10-03 09:02 | XMS_ITS | Encounter Summary ---
Author Organization Healthcare Address [address] [place] [address] Care Team Providers Care Business Education Teacher Name Role Phone Jevon Vazquez MD Primary Care Provider [phone] Encounter Details Date Type Department Care Team [...] Hematology/BMT and Cellular Therapy Program [address] [address] 10/14/2024 11:30 AM EDT Office Visit [facility] Hematology/BMT and Cellular Therapy Program [address] [address] Zonia Hoffman, CARPET RENOVATOR 800 [facility] [address] [place] [phone] documented as of this encounter Visit Diagnoses Not on filedocumented in this encounter Additional Health Concerns Assessment Noted Time A fall risk assessment has been complete d for the patient 09/19/2024 8:38 AM EDT A Body Mass Index follow-up plan has been documented for the patient 05/28/2024 1:52 PM EST documented as of this encounter Care Teams Business Education Teacher Relationship Specialty Start Date End Date Jevon Vazquez MD [address] [place] [address] #1 #1 [place] [address] PCP - General 03/23/22 documented as of this encounter
--- OUTSIDE RECORDS SUMMARY | 2024-10-03 09:02 | XMS_ITS | Encounter Summary ---
Author Organization Healthcare Address [address] [place] [address] Care Team Providers Care Associate Designer Name Role Phone Jevon Vazquez MD Primary Care Provider [phone] Encounter Details Date Type Department Care Team [...] Hematology/BMT and Cellular Therapy Program [address] [address] 10/14/2024 11:30 AM EDT Office Visit [facility] Hematology/BMT and Cellular Therapy Program [address] [address] Zonia Hoffman, SCRIPT MANAGER 800 [facility] [address] [place] [phone] documented as of this encounter Visit Diagnoses Not on filedocumented in this encounter Additional Health Concerns Assessment Noted Time A fall risk assessment has been complete d for the patient 07/30/2024 8:29 AM EDT A Body Mass Index follow-up plan has been documented for the patient 05/28/2024 1:52 PM EST documented as of this encounter Care Teams Associate Designer Relationship Specialty Start Date End Date Jevon Vazquez MD [address] [place] [address] #1 #1 [place] [address] PCP - General 03/23/22 documented as of this encounter
--- OUTSIDE RECORDS SUMMARY | 2024-10-03 09:02 | XMS_ITS | Encounter Summary ---
Author Organization Healthcare Address [address] [place] [address] Care Team Providers Care C++ Quant Developer Name Role Phone Jevon Vazquez MD Primary Care Provider [phone] Encounter Details Date Type Department Care Team [...] Hematology/BMT and Cellular Therapy Program [address] [address] 10/14/2024 11:30 AM EDT Office Visit [facility] Hematology/BMT and Cellular Therapy Program [address] [address] Zonia Hoffman, ACCOUNT EXECUTIVE AGRIBUSINESS 800 [facility] [address] [place] [phone] documented as of this encounter Visit Diagnoses Not on filedocumented in this encounter Additional Health Concerns Assessment Noted Time A fall risk assessment has been complete d for the patient 07/30/2024 8:29 AM EDT A Body Mass Index follow-up plan has been documented for the patient 05/28/2024 1:52 PM EST documented as of this encounter Care Teams C++ Quant Developer Relationship Specialty Start Date End Date Jevon Vazquez MD [address] [place] [address] #1 #1 [place] [address] PCP - General 03/23/22 documented as of this encounter
--- OUTSIDE RECORDS SUMMARY | 2024-10-03 09:02 | XMS_ITS | Encounter Summary ---
Author Organization [facility] Address [address] [place] [address] Care Team Providers Care Lan Manager Name Role Phone Jevon Vazquez MD Primary Care Provider [phone] Encounter Details Date Type Department Care Team ([facility] Contact Info) Description 09/15/2024 Telephone [facility] Hematology/BMT and Cellular Therapy Program [address] [phone] Zonia Hoffman, OPTOMETRIC TECH 800 [facility] [address] [place] [phone] Social History Tobacco Use Types Packs/Day Years [...] Date Type Department Care Team ([facility] Contact Info) Description 10/14/2024 11:00 AM EDT Clinical Support [facility] Hematology/BMT and Cellular Therapy Program [address] [place] [phone] 10/14/2024 11:30 AM EDT Office Visit [facility] Hematology/BMT and Cellular Therapy Program [address] [place] [phone] Zonia Hoffman, OPTOMETRIC TECH 800 [facility] [address] [place] [address] documented as of this encounter Visit Diagnoses Not on filedocumented in this encounter Additional Health Concerns Assessment Noted Time A fall risk assessment has been complete d for the patient 07/30/2024 8:29 AM EDT A Body Mass Index follow-up plan has been documented for the patient 05/28/2024 1:52 PM EST documented as of this encounter Care Teams Lan Manager Relationship Specialty Start Date End Date Jevon Vazquez MD [address] [place] [address] #1 #1 [place] [address] PCP - General 03/23/22 documented as of this encounter
--- OUTSIDE RECORDS SUMMARY | 2024-10-03 09:02 | XMS_ITS | Encounter Summary ---
Author Organization [facility] Address [address] [place] [address] Care Team Providers Care Relations Coordinator Name Role Phone Jevon Vazquez MD Primary Care Provider [phone] Encounter Details Date Type Department Care Team ([facility] Contact Info) Description 09/19/2024 Telephone P[facility] CC Hematology/BMT and Cellular Therapy Program [address] [place] [address] Romana Richmond RN [facility] Social History Tobacco Use Types [...] Encounters Date Type Department Care Team ([facility] Contact Info) Description 10/14/2024 11:00 AM EDT Clinical Support PAV CC Hematology/BMT and Cellular Therapy Program [address] [address] 10/14/2024 11:30 AM EDT Office Visit P[facility] CC Hematology/BMT and Cellular Therapy Program 750 [facility] [place] [place] [address] Zonia Hoffman, DINKEY ENGINE FIRER 800 [facility] [address] [place] [address] documented as of this encounter Visit Diagnoses Not on filedocumented in this encounter Additional Health Concerns Assessment Noted Time A fall risk assessment has been complete d for the patient 09/19/2024 8:38 AM EDT A Body Mass Index follow-up plan has been documented for the patient 05/28/2024 1:52 PM EST documented as of this encounter Care Teams Relations Coordinator Relationship Specialty Start Date End Date Jevon Vazquez MD [address] [place] [address] #1 #1 [place] [address] PCP - General 03/23/22 documented as of this encounter
--- OUTSIDE RECORDS SUMMARY | 2024-10-03 09:02 | XMS_ITS | Encounter Summary ---
Author Organization [facility] Address [address] [place] [address] Care Team Providers Care News Anchor Name Role Phone Jevon Vazquez MD Primary Care Provider [phone] Reason for Visit * Reason Comments Med Refill Encounter Details Date Type Department Care Team ([facility] Contact Info) Description 09/12/2024 Refill PAV CC Hematology/BMT and Cellular Therapy Program [address] [phone] [place] Mckin[place] MD 800 [facility] [address] [place] [phone] Social History Tobacco Use Types Packs/Day Years [...] Hematology/BMT and Cellular Therapy Program [address] [phone] 10/14/2024 11:30 AM EDT Office Visit P[facility] CC Hematology/BMT and Cellular Therapy Program [address] [address] Zonia Hoffman, DATABASE PROGRAMMER ANALYST 800 [facility] [address] [place] [address] documented as of this encounter Visit Diagnoses Not on filedocumented in this encounter Additional Health Concerns Assessment Noted Time A fall risk assessment has been complete d for the patient 07/30/2024 8:29 AM EDT A Body Mass Index follow-up plan has been documented for the patient 05/28/2024 1:52 PM EST documented as of this encounter Care Teams News Anchor Relationship Specialty Start Date End Date Jevon Vazquez MD [address] [place] [address] #1 [address]1 [place] [address] PCP - General 03/23/22 documented as of this encounter
--- OUTSIDE RECORDS SUMMARY | 2024-10-03 09:02 | XMS_ITS | Encounter Summary ---
Author Organization [facility] Address [address] [place] [address] Care Team Providers Care Technical Proposal Writer Name Role Phone Jevon Vazquez MD Primary Care Provider [phone] Reason for Visit * Reason Comments Med Refill Encounter Details Date Type Department Care Team ([facility] Contact Info) Description 01/30/2024 Refill P[facility] CC Hematology/BMT and Cellular Therapy Program [address] [phone] [place] M[place]in[place] MD 800 [facility] [address] [place] [phone] Social History Tobacco Use Types Packs/Day Years [...] Upcoming Encounters Date Type Department Care Team ([facility] Contact Info) Description 10/14/2024 11:00 AM EDT Clinical Support P[facility] CC Hematology/BMT and Cellular Therapy Program [address] [place] [address] 10/14/2024 11:30 AM EDT Office Visit P[facility] CC Hematology/BMT and Cellular Therapy Program [address] [phone] Zonia Hoffman, BLADE OPERATOR 800 [facility] [address] [place] [address] documented as of this encounter Visit Diagnoses Not on filedocumented in this encounter Additional Health Concerns Assessment Noted Time A fall risk assessment has been complete d for the patient 01/11/2024 9:16 AM EDT A Body Mass Index follow-up plan has been documented for the patient 01/21/2024 6:16 AM EDT documented as of this encounter Care Teams Technical Proposal Writer Relationship Specialty Start Date End Date Jevon Vazquez MD [address] [place] [address] #1 #1 [place] [address] PCP - General 03/23/22 documented as of this encounter
--- OUTSIDE RECORDS SUMMARY | 2024-10-03 09:02 | XMS_ITS | Encounter Summary ---
Author Organization [facility] Address [address] [place] [address] Care Team Providers Care Division Commander Name Role Phone Jevon Vazquez MD Primary Care Provider [phone] Encounter Details Date Type Department Care Team [...] Hematology/BMT and Cellular Therapy Program [address] [phone] 10/14/2024 11:30 AM EDT Office Visit P[facility] CC Hematology/BMT and Cellular Therapy Program [address] [phone] Zonia Hoffman, CASEY SAW OPERATOR 800 [facility] [address] [place] [phone] documented as of this encounter Visit Diagnoses Not on filedocumented in this encounter Additional Health Concerns Assessment Noted Time A fall risk assessment has been complete d for the patient 07/30/2024 8:29 AM EDT A Body Mass Index follow-up plan has been documented for the patient 05/28/2024 1:52 PM EST documented as of this encounter Care Teams Division Commander Relationship Specialty Start Date End Date Jevon Vazquez MD [address] [place] [address] #1 #1 [place] [address] PCP - General 03/23/22 documented as of this encounter
--- OUTSIDE RECORDS SUMMARY | 2024-10-03 09:02 | XMS_ITS | Encounter Summary ---
Author Organization [facility] Address [address] [place] [address] Care Team Providers Care Nanny/Household Manager Name Role Phone Jevon Vazquez MD Primary Care Provider [phone] Encounter Details Date Type Department Care Team [...] Hematology/BMT and Cellular Therapy Program [address] [phone] 10/14/2024 11:30 AM EDT Office Visit P[facility] CC Hematology/BMT and Cellular Therapy Program [address] [phone] Zonia Hoffman, FILTER ASSEMBLER 800 [facility] [address] [place] [phone] documented as of this encounter Visit Diagnoses Not on filedocumented in this encounter Additional Health Concerns Assessment Noted Time A fall risk assessment has been complete d for the patient 07/30/2024 8:29 AM EDT A Body Mass Index follow-up plan has been documented for the patient 05/28/2024 1:52 PM EST documented as of this encounter Care Teams Nanny/Household Manager Relationship Specialty Start Date End Date Jveon Vazquez MD [address] [place] [address] #1 #1 [place] [address] PCP - General 03/23/22 documented as of this encounter
--- OUTSIDE RECORDS SUMMARY | 2024-10-03 09:02 | XMS_ITS | Encounter Summary ---
Author Organization [facility] Address [address] [place] [address] Care Team Providers Care Navigation Teacher Name Role Phone Jevon Vazquez MD Primary Care Provider [phone] Encounter Details Date Type Department Care Team [...] Hematology/BMT and Cellular Therapy Program [address] [phone] 10/14/2024 11:30 AM EDT Office Visit P[facility] CC Hematology/BMT and Cellular Therapy Program [address] [phone] Zonia Hoffman, PROFESSIONAL APPLICATION DESIGNER 800 [facility] [address] [place] [phone] documented as of this encounter Visit Diagnoses Not on filedocumented in this encounter Additional Health Concerns Assessment Noted Time A fall risk assessment has been complete d for the patient 09/19/2024 8:38 AM EDT A Body Mass Index follow-up plan has been documented for the patient 05/28/2024 1:52 PM EST documented as of this encounter Care Teams Navigation Teacher Relationship Specialty Start Date End Date Jevon Vazquez MD [address] [place] [address] #1 #1 [place] [address] PCP - General 03/23/22 documented as of this encounter
--- OUTSIDE RECORDS SUMMARY | 2024-10-03 09:02 | XMS_ITS | Encounter Summary ---
Author Organization [facility] Address [address] [place] [address] Care Team Providers Care Golf Club Weigher Name Role Phone Jevon Vazquez MD Primary Care Provider [phone] Encounter Details Date Type Department Care Team [...] Hematology/BMT and Cellular Therapy Program [address] [phone] 10/14/2024 11:30 AM EDT Office Visit P[facility] CC Hematology/BMT and Cellular Therapy Program [address] [phone] Zonia Hoffman, MANAGER SITE 800 [facility] [address] [place] [phone] documented as of this encounter Visit Diagnoses Not on filedocumented in this encounter Additional Health Concerns Assessment Noted Time A fall risk assessment has been complete d for the patient 09/30/2024 9:33 AM EDT A Body Mass Index follow-up plan has been documented for the patient 05/28/2024 1:52 PM EST documented as of this encounter Care Teams Golf Club Weigher Relationship Specialty Start Date End Date Jevon Vazquez MD [address] [place] [address] #1 #1 [place] [address] PCP - General 03/23/22 documented as of this encounter
--- OUTSIDE RECORDS SUMMARY | 2024-10-03 09:02 | XMS_ITS | Encounter Summary ---
Author Organization [facility] Address [address] [place] [address] Care Team Providers Care Verification Rep Name Role Phone Jevon Vazquez MD Primary Care Provider [phone] Encounter Details Date Type Department Care Team ([facility] Contact Info) Description 09/19/2024 Orders Only P[facility] CC Hematology/BMT and Cellular Therapy Program [address] [phone] 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, RN [facility] Social History Tobacco Use [...] Hematology/BMT and Cellular Therapy Program [address] [phone] 10/14/2024 11:30 AM EDT Office Visit PAV CC Hematology/BMT and Cellular Therapy Program [address] [phone] Zonia Hoffman, SENIOR ACCOUNTING CLERK 800 [facility] [address] [place] [phone] documented as of this encounter Visit Diagnoses Not on filedocumented in this encounter Additional Health Concerns Assessment Noted Time A fall risk assessment has been complete d for the patient 09/19/2024 8:38 AM EDT A Body Mass Index follow-up plan has been documented for the patient 05/28/2024 1:52 PM EST documented as of this encounter Care Teams Verification Rep Relationship Specialty Start Date End Date Jevon Vazquez MD [address] [place] [address] #1 #1 [place] [address] PCP - General 03/23/22 documented as of this encounter
--- OUTSIDE RECORDS SUMMARY | 2024-10-03 09:02 | XMS_ITS | Encounter Summary ---
Author Organization [facility] Address [address] [place] [address] Care Team Providers Care Insurance Salesperson Name Role Phone Jevon Vazquez MD Primary Care Provider [phone] Encounter Details Date Type Department Care Team [...] Hematology/BMT and Cellular Therapy Program [address] [phone] 10/14/2024 11:30 AM EDT Office Visit P[facility] CC Hematology/BMT and Cellular Therapy Program [address] [phone] Zonia Hoffman, ACQUISITION CONSULTANT 800 [facility] [address] [place] [phone] documented as of this encounter Visit Diagnoses Not on filedocumented in this encounter Additional Health Concerns Assessment Noted Time A fall risk assessment has been complete d for the patient 07/30/2024 8:29 AM EDT A Body Mass Index follow-up plan has been documented for the patient 05/28/2024 1:52 PM EST documented as of this encounter Care Teams Insurance Salesperson Relationship Specialty Start Date End Date Jevon Vazquez MD [address] [place] [address] #1 #1 [place] [address] PCP - General 03/23/22 documented as of this encounter
--- OUTSIDE RECORDS SUMMARY | 2024-10-03 09:02 | XMS_ITS | Encounter Summary ---
Author Organization Healthcare Address [address] [place] [address] Care Team Providers Care Artist And Repertoire Manager Name Role Phone Jevon Vazquez MD [...] Hematology/BMT and Cellular Therapy Program [address] [address] 10/14/2024 11:30 AM EDT Office Visit P[facility] CC Hematology/BMT and Cellular Therapy Program [address] [phone] Zonia Hoffman, COMMISSIONED FIRE OFFICER 800 [facility] [address] [place] [phone] documented as of this encounter Visit Diagnoses Not on filedocumented in this encounter Additional Health Concerns Assessment Noted Time A fall risk assessment has been complete d for the patient 07/30/2024 8:29 AM EDT A Body Mass Index follow-up plan has been documented for the patient 05/28/2024 1:52 PM EST documented as of this encounter Care Teams Artist And Repertoire Manager Relationship Specialty Start Date End Date Jevon Vazquez MD [address] [place] [address] #1 #1 [place] [address] PCP - General 03/23/22 documented as of this encounter
--- OUTSIDE RECORDS SUMMARY | 2024-10-03 09:02 | XMS_ITS ---
Author Organization [facility] Address [address] [place] [address] Care Team Providers Care Associate Account Director Name Role Phone Jevon Vazquez MD Primary Care Provider [phone] Active Problems Problem Noted Date Diagnosed Date [...]
--- OUTSIDE RECORDS SUMMARY | 2024-10-03 09:02 | XMS_ITS | Encounter Summary ---
Author Organization Healthcare Address [address] [place] [address] Care Team Providers Care Welt Slasher Name Role Phone Jevon Vazquez MD Primary Care Provider [phone] Encounter Details Date Type Department Care Team [...] Hematology/BMT and Cellular Therapy Program [address] [phone] 10/14/2024 11:30 AM EDT Office Visit P[facility] CC Hematology/BMT and Cellular Therapy Program [address] [phone] Zonia Hoffman, ARCHITECTURAL RENDERER 800 [facility] [address] [place] [phone] documented as of this encounter Visit Diagnoses Not on filedocumented in this encounter Additional Health Concerns Assessment Noted Time A fall risk assessment has been complete d for the patient 07/30/2024 8:29 AM EDT A Body Mass Index follow-up plan has been documented for the patient 05/28/2024 1:52 PM EST documented as of this encounter Care Teams Welt Slasher Relationship Specialty Start Date End Date Jevon Vazquez MD [address] [place] [address] #1 #1 [place] [address] PCP - General 03/23/22 documented as of this encounter
--- OUTSIDE RECORDS SUMMARY | 2024-10-03 09:02 | XMS_ITS | Encounter Summary ---
Author Organization Healthcare Address [address] [place] [address] Care Team Providers Care Screen Printing Press Operator Name Role Phone Jevon Vazquez MD Primary Care Provider [phone] Encounter Details Date Type Department Care Team [...] Hematology/BMT and Cellular Therapy Program [address] [phone] 10/14/2024 11:30 AM EDT Office Visit PAV CC Hematology/BMT and Cellular Therapy Program [address] [phone] Zonia Hoffman, FURNACE FITTER 800 [facility] [address] [place] [phone] documented as of this encounter Visit Diagnoses Not on filedocumented in this encounter Additional Health Concerns Assessment Noted Time A fall risk assessment has been complete d for the patient 07/30/2024 8:29 AM EDT A Body Mass Index follow-up plan has been documented for the patient 05/28/2024 1:52 PM EST documented as of this encounter Care Teams Screen Printing Press Operator Relationship Specialty Start Date End Date Jevon Vazquez MD [address] [place] [address] #1 #1 [place] [address] PCP - General 03/23/22 documented as of this encounter
--- OUTSIDE RECORDS SUMMARY | 2024-10-03 09:02 | XMS_ITS | Encounter Summary ---
Author Organization [facility] Address [address] [place] [address] Care Team Providers Care Doors Prefitter Name Role Phone Jevon Vazquez MD Primary Care Provider [phone] Encounter Details Date Type Department Care Team ([facility] st Contact Info) Description 09/01/2024 Telephone PAV CC Hematology/BMT and Cellular Therapy Program [address] [address] Zonia Hoffman, ENDOCRINOLOGY TEACHER 800 [facility] [address] [place] [phone] Social History Tobacco Use Types Packs/Day Years [...] told her to cancel. Please confirm Callback number:[phone] documented in this encounter Plan of Treatment Upcoming Encounters Date Type Department Care Team (Late st Contact Info) Description 10/14/2024 11:00 AM EDT Clinical Support PAV Hematology/BMT and Cellular Therapy Program [address] [address] 10/14/2024 11:30 AM EDT Office Visit PAV Hematology/BMT and Cellular Therapy Program [address] [phone] Zonia Hoffman, ENDOCRINOLOGY TEACHER 800 [facility] [address] [place] [phone] documented as of this encounter Visit Diagnoses Not on filedocumented in this encounter Additional Health Concerns Assessment Noted Time A fall risk assessment has been complete d for the patient 07/30/2024 8:29 AM EDT A Body Mass Index follow-up plan has been documented for the patient 05/28/2024 1:52 PM EST documented as of this encounter Care Teams Doors Prefitter Relationship Specialty Start Date End Date Jevon Vazquez MD [address] [place] [address] #1 #1 [place] [address] PCP - General 03/23/22 documented as of this encounter
--- OUTSIDE RECORDS SUMMARY | 2024-10-03 09:02 | XMS_ITS | Encounter Summary ---
Author Organization Healthcare Address [address] [place] [address] Care Team Providers Care Assembler Semiconductor Name Role Phone Jevon Vazquez MD Primary Care Provider [phone] Encounter Details Date Type Department Care Team [...] Hematology/BMT and Cellular Therapy Program [address] [phone] 10/14/2024 11:30 AM EDT Office Visit PAV CC Hematology/BMT and Cellular Therapy Program [address] [phone] Zonia Hoffman, CANINE ENFORCEMENT OFFICER 800 [facility] [address] [place] [phone] documented as of this encounter Visit Diagnoses Not on filedocumented in this encounter Additional Health Concerns Assessment Noted Time A fall risk assessment has been complete d for the patient 09/19/2024 8:38 AM EDT A Body Mass Index follow-up plan has been documented for the patient 05/28/2024 1:52 PM EST documented as of this encounter Care Teams Assembler Semiconductor Relationship Specialty Start Date End Date Jevon Vazquez MD [address] [place] [address] #1 #1 [place] [address] PCP - General 03/23/22 documented as of this encounter
--- OUTSIDE RECORDS SUMMARY | 2024-10-03 09:02 | XMS_ITS | Encounter Summary ---
Author Organization Healthcare Address [address] [place] [address] Care Team Providers Care Cattle Tester Name Role Phone Jevon Vazquez MD Primary Care Provider [phone] Encounter Details Date Type Department Care Team [...] Hematology/BMT and Cellular Therapy Program [address] [phone] 10/14/2024 11:30 AM EDT Office Visit PAV CC Hematology/BMT and Cellular Therapy Program [address] [phone] Zonia Hoffman, CONDUIT INSTALLER 800 [facility] [address] [place] [phone] documented as of this encounter Visit Diagnoses Not on filedocumented in this encounter Additional Health Concerns Assessment Noted Time A fall risk assessment has been complete d for the patient 09/19/2024 8:38 AM EDT A Body Mass Index follow-up plan has been documented for the patient 05/28/2024 1:52 PM EST documented as of this encounter Care Teams Cattle Tester Relationship Specialty Start Date End Date Jevon Vazquez MD [address] [place] [address] #1 #1 [place] [address] PCP - General 03/23/22 documented as of this encounter
--- OUTSIDE RECORDS SUMMARY | 2024-10-03 09:02 | XMS_ITS | Encounter Summary ---
Author Organization Healthcare Address [address] [place] [address] Care Team Providers Care Central Office Trouble Shooter Name Role Phone Jevon Vazquez MD Primary Care Provider [phone] Encounter Details Date Type Department Care Team ([facility] st Contact Info) Description 08/18/2024 Telephone PAV CC Hematology/BMT and Cellular Therapy Program [address] [phone] Romana Gorman, PARADICHLOROBENZENE TENDER 800 [facility] [address] [place] [address] Social History Tobacco Use Types Packs/Day Years [...] to her levels being low Callback number: [phone] documented in this encounter Plan of Treatment Upcoming Encounters Date Type Department Care Team (Late st Contact Info) Description 10/14/2024 11:00 AM EDT Clinical Support PAV Hematology/BMT and Cellular Therapy Program [address] [phone] 10/14/2024 11:30 AM EDT Office Visit PAV Hematology/BMT and Cellular Therapy Program [address] [phone] Zonia Hoffman, PARADICHLOROBENZENE TENDER 800 [facility] [address] [place] [phone] documented as of this encounter Visit Diagnoses Not on filedocumented in this encounter Additional Health Concerns Assessment Noted Time A fall risk assessment has been complete d for the patient 07/30/2024 8:29 AM EDT A Body Mass Index follow-up plan has been documented for the patient 05/28/2024 1:52 PM EST documented as of this encounter Care Teams Central Office Trouble Shooter Relationship Specialty Start Date End Date Jevon Vazquez MD [address] [place] [address] #1 #1 [place] [address] PCP - General 03/23/22 documented as of this encounter
--- OUTSIDE RECORDS SUMMARY | 2024-10-03 09:03 | XMS_ITS | Clinical Summary ---
Author Organization [facility] Address [address] [place] [address] Phone Care Team Providers Care Immigration Attorney Name Role Phone Jevon Vazquez MD Primary Care Provider [phone] Allergies Active Allergy Reactions Criticality Noted Date [...] L4-5 LAMINECTOMY; Surgeon: Ivan Bartholomew MD; Location: [facility] MAIN OR; Service: Spine Medical History [...] 5.6 % 11/14/2022 2:57 PM EDT PREFERRED [employer], [employer] Est. Avg Glucose 148 mg/dL 11/14/2022 2:57 PM EDT [employer], [facility] Blood VENOUS BLOOD / Unknown Venipuncture / Unknown 11/11/2022 3:46 PM EDT 11/11/2022 3:55 PM EDT Narrative [facility] [employer] [facility] - 11/14/2022 2:57 PM EDT REFERENCE RANGE: Normal: 4.0-5.6% Pre-diabetes: 5.7-6.4% Provisional diagnosis of diabetes: >6.4% Hgb F>10% and anything which shortens red cell survival, such as hemolytic anemia, or unstable hemoglobin variants such as HbSS, HbSC, or HbCC, will lower the HbA1c value associated with a given level of glycemic control. us Lexi Maloney DO CHEMISTRY ORDERABLES Final R esult [facility] [employer] [facility] [address] [facility] , [place] [address] * (ABNORMAL) BASIC METABOLIC PANEL (11/11/2022 3:46 PM EDT) Sodium 136 136 - 145 mmol/L 11/11/2022 4:11 PM EDT [facility] Potassium 3.8 3.5 - 5.0 mmol/L 11/11/2022 4:11 PM EDT [facility] Chloride 102 98 - 107 mmol/L 11/11/2022 4:11 PM EDT [facility] Total CO2 24 22 - 29 mmol/L 11/11/2022 4:11 PM EDT [facility] Anion Gap 10 7 - 16 mmol/L 11/11/2022 4:11 PM EDT [facility] Calcium 10.1 8.8 - 10.4 mg/dL 11/11/2022 4:11 PM EDT [facility] Glucose Lvl 147(H) 82 - 100 mg/dL 11/11/2022 4:11 PM EDT [facility] BUN 15 8 - 23 mg/dL 11/11/2022 4:11 PM EDT [facility] Creatinine 0.82 0.51 - 1.30 mg/dL 11/11/2022 4:11 PM EDT [facility] eGFR (CKD-EPIcr 2020) 76 >=60 mL/min/1.7 3 m2 11/11/2022 4:11 PM EDT [facility] Comment:Estimated GFR was ca lculated using the CKD-EPIcr (2020) equation refit without race. The equation is recommended by the National Kidney Foundation - [place] [employer] Nephrology Task Force. Blood VENOUS BLOOD / Unknown Venipuncture / Unknown 11/11/2022 3:46 PM EDT 11/11/2022 3:54 PM EDT us Leona Hanna DO CHEMISTRY ORDERABLES Final Res ult [facility] [address] [place] [address] * DX BONE DENSITY AXIAL SKELETON (07/25/2022 9:14 AM EDT) Anatomical Region Laterality Modality Dexa Scan 07/25/2022 Narrative 07/25/2022 3:45 PM EDT Indication: The patient is a female age 65 or older who requires a bone density assessment. Study was performed on [facility] 5. Bone Density: Region BMD T-score Z-score [...] Most Recently Relevant to Health Maintenance Insurance [place] [address] MEDICARE SUPPLEMENT MEDICARE [place] PART A AND B Member Subscriber Plan / Payer (Ef fective 2016-Present) Name:Ashly Hernández Member ID:[id number] Relation to Subscriber:Self Name:Ashly Hernández Subscriber ID:[id number] Payer ID:Not on file Group ID:Not on file Type:Not on file Address: [address] MEDICARE SUPPLEMENT MEDICARE [place] PART A & [place] [phone] MEDICARE [place] PART A AND B Member Subscriber Plan / Payer (Ef fective 2016-Present) Name:Ashly Hernández Member ID:[id number] Relation to Subscriber:Self Name:Ashly Hernández Subscriber ID:[id number] Payer ID:Not on file Group ID:Not on file Type:Not on file Address: [address] MEDICARE SUPPLEMENT [employer] MEDICARE [place] PART A AND B [address] MEDICARE SUPPLEMENT Advance Directives For more information, please contact: [phone] * Full Code (Latest Code Status on File) Date Activated Date Inactivated Comments 11/14/2022 6:53 PM 11/16/2022 7:37 PM * Full Code Date Activated Date Inactivated Comments 11/12/2022 5:17 AM 11/14/2022 6:47 PM Care Teams Immigration Attorney Relationship Specialty Start Date End Date Jevon Vazquez MD [address] [place] [address] PCP - General Family Medicine 11/10/22
--- OUTSIDE RECORDS SUMMARY | 2024-10-03 09:03 | XMS_ITS | Encounter Summary ---
Author Organization Healthcare Address [address] [place] [address] Care Team Providers Care Barrel Stave Inspector Name Role Phone Jevon Vazquez MD Primary Care Provider [phone] Encounter Details Date Type Department Care Team ([facility] st Contact Info) Description 07/15/2024 Telephone [facility] Hematology/BMT and Cellular Therapy Program [address] [phone] Zonia Hoffman, SULFIDE HEAD OPERATOR 800 [facility] [address] [place] [phone] Social History Tobacco Use Types Packs/Day Years [...] Reason for Call: Per PT call to [facility], needs [place] appt clarity, asking to have Jorge from clinical care team. Best contact number and optimal time of day to reach caller: [phone] Note: Please do not reply to this [...] Support [facility] Hematology/BMT and Cellular Therapy Program [address] [place] [phone] 10/14/2024 11:30 AM EDT Office Visit [facility] Hematology/BMT and Cellular Therapy Program [address] [place] [phone] Zonia Hoffman, SULFIDE HEAD OPERATOR 800 [facility] [address] [place] [phone] documented as of this encounter Visit Diagnoses Not on filedocumented in this encounter Additional Health Concerns Assessment Noted Time A fall risk assessment has been complete d for the patient 06/18/2024 10:22 AM EST A Body Mass Index follow-up plan has been documented for the patient 05/28/2024 1:52 PM EST documented as of this encounter Care Teams Barrel Stave Inspector Relationship Specialty Start Date End Date Jevon Vazquez MD [address] [place] [address] [address] [place] [address] PCP - General 03/23/22 documented as of this encounter
--- OUTSIDE RECORDS SUMMARY | 2024-10-03 09:03 | XMS_ITS | Encounter Summary ---
Author Organization Healthcare Address [address] [place] [address] Care Team Providers Care Event Specialist Name Role Phone Jevon Vazquez MD [...] Hematology/BMT and Cellular Therapy Program [address] [phone] 10/14/2024 11:30 AM EDT Office Visit [facility] Hematology/BMT and Cellular Therapy Program [address] [phone] Zonia Hoffman, COTTON PICKER 800 [facility] [address] [place] [phone] documented as of this encounter Visit Diagnoses Not on filedocumented in this encounter Additional Health Concerns Assessment Noted Time A fall risk assessment has been complete d for the patient 09/19/2024 8:38 AM EDT A Body Mass Index follow-up plan has been documented for the patient 05/28/2024 1:52 PM EST documented as of this encounter Care Teams Event Specialist Relationship Specialty Start Date End Date Jevon Vazquez MD [address] [place] [address] [address] [place] [address] PCP - General 03/23/22 documented as of this encounter
--- OUTSIDE RECORDS SUMMARY | 2024-10-03 09:03 | XMS_ITS | Encounter Summary ---
Author Organization Healthcare Address [address] [place] [address] Care Team Providers Care Product Safety And Standards Engineer Name Role Phone Jevon Vazquez MD Primary Care Provider [phone] Encounter Details Date Type Department Care Team [...] Hematology/BMT and Cellular Therapy Program [address] [phone] 10/14/2024 11:30 AM EDT Office Visit [facility] Hematology/BMT and Cellular Therapy Program [address] [phone] Zonia Hoffman, TOOL SUPERVISOR 800 [facility] [address] [place] [phone] documented as of this encounter Visit Diagnoses Not on filedocumented in this encounter Additional Health Concerns Assessment Noted Time A fall risk assessment has been complete d for the patient 09/19/2024 8:38 AM EDT A Body Mass Index follow-up plan has been documented for the patient 05/28/2024 1:52 PM EST documented as of this encounter Care Teams Product Safety And Standards Engineer Relationship Specialty Start Date End Date Jevon Vazquez MD [address] [place] [address] [address] [place] [id number] PCP - General 03/23/22 documented as of this encounter
--- OUTSIDE RECORDS SUMMARY | 2024-10-03 09:03 | XMS_ITS | Encounter Summary ---
Author Organization Healthcare Address [address] [place] [address] Care Team Providers Care Nail Making Machine Tender Name Role Phone Jevon Vazquez MD Primary Care Provider [phone] Encounter Details Date Type Department Care Team [...] Hematology/BMT and Cellular Therapy Program [address] [phone] 10/14/2024 11:30 AM EDT Office Visit [facility] Hematology/BMT and Cellular Therapy Program [address] [phone] Zonia Hoffman, PREPRESS OPERATOR 800 [facility] [address] [place] [phone] documented as of this encounter Visit Diagnoses Not on filedocumented in this encounter Additional Health Concerns Assessment Noted Time A fall risk assessment has been complete d for the patient 09/19/2024 8:38 AM EDT A Body Mass Index follow-up plan has been documented for the patient 05/28/2024 1:52 PM EST documented as of this encounter Care Teams Nail Making Machine Tender Relationship Specialty Start Date End Date Jevon Vazquez MD [address] [place] [address] [address] [place] [address] PCP - General 03/23/22 documented as of this encounter
--- OUTSIDE RECORDS SUMMARY | 2024-10-03 09:03 | XMS_ITS | Clinical Summary ---
Author Organization [facility] Address [address] 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) 09/30/2024 Telephone [facility] H[facility]ology/BMT [facility] Cellular Therapy Program [address] [place] [phone] Zoraida Good RN 09/30/2024 Travel 09/29/2024 Travel 09/28/2024 Travel 09/27/2024 Travel 09/26/2024 Travel 09/25/2024 Travel 09/24/2024 Travel 09/23/2024 Travel 09/19/2024 12:00 PM EDT Procedure Visit [facility] Hematology/BMT and Cellular Therapy Program [address] [place] [phone] Lexi Ferraro, WARP YARN SORTER 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) 09/19/2024 9:30 AM EDT Clinical Support [facility] [address] [facility], 2nd [place] [address] 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) 09/19/2024 7:30 AM EDT Clinical Support [facility] Hematology/BMT and Cellular Therapy Program [address] [place] [address] 09/19/2024 Telephone [facility] Hematology/BMT and Cellular Therapy Program [address] [phone] Romana Richmond, AKBAR 09/19/2024 Orders Only [facility] Hematology/BMT and Cellular Therapy Program [address] [phone] 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, RN 09/19/2024 Travel 09/15/2024 Telephone [facility] Hematology/BMT and Cellular Therapy Program [address] [phone] Zonia Hoffman, WARP YARN SORTER 09/15/2024 Travel 09/14/2024 Travel 09/13/2024 Travel 09/12/2024 Travel 09/12/2024 Refill [facility] Hematology/BMT and Cellular Therapy Program [address] [phone] New Mckinney MD 09/11/2024 Travel 09/10/2024 Travel 09/01/2024 Telephone [facility] Hematology/BMT and Cellular Therapy Program [address] [phone] Zonia Hoffman, WARP YARN SORTER 08/31/2024 Travel 08/30/2024 Travel 08/18/2024 Telephone [facility] Hematology/BMT and Cellular Therapy Program [address] [place] [address] Romana Gorman, WARP YARN SORTER 08/17/2024 Travel 08/16/2024 Travel 08/15/2024 Travel 08/13/2024 Travel 07/30/2024 8:30 AM EDT Office Visit [facility] Hematology/BMT and Cellular Therapy Program [address] [phone] Zonia Hoffman, WARP YARN SORTER Pancytopenia (Primary Dx) 07/30/2024 8:00 AM EDT Clinical Support [facility] Hematology/BMT and Cellular Therapy Program [address] [phone] Pancytopenia 07/30/2024 Telephone [facility] Hematology/BMT and Cellular Therapy Program [address] [place] [phone] Romana Rihcmond RN 07/30/2024 Refill [facility] Hematology/BMT and Cellular Therapy Program [address] [place] [phone] Daxa Elliott, directional bore operator 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); Immunosuppressed status (CMS/HCC) 07/30/2024 Travel 07/29/2024 Travel 07/28/2024 Travel 07/27/2024 Travel 07/26/2024 Travel 07/24/2024 Travel 07/23/2024 Travel 07/19/2024 Refill [facility] Hematology/BMT and Cellular Therapy Program [address] [phone] Zonia Hoffman, WARP YARN SORTER 07/16/2024 9:00 AM EDT Office Visit [facility] Hematology/BMT and Cellular Therapy Program [address] [place] [phone] Zonia Hoffman, WARP YARN SORTER Pancytopenia (Primary Dx); 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) 07/16/2024 8:30 AM EDT Clinical Support [facility] Hematology/BMT and Cellular Therapy Program [address] [phone] 07/16/2024 Travel 07/15/2024 Travel 07/15/2024 Telephone [facility] Hematology/BMT and Cellular Therapy Program 750 [facility], [address] [place] [address] [place] [address] Zonia Hoffman, WARP YARN SORTER 07/14/2024 Travel 07/13/2024 Travel 07/12/2024 Travel 07/11/2024 Travel 07/10/2024 Travel 07/09/2024 Travel from Last 3 Months Immunizations Immunization [...] Upcoming Encounters Date Type Department Care Team ([facility] st Contact Info) Description 10/14/2024 11:00 AM EDT Clinical Support [facility] Hematology/BMT and Cellular Therapy Program [address] [facility] [place] [phone] 10/14/2024 11:30 AM EDT Office Visit [facility] Hematology/BMT and Cellular Therapy Program [address] [facility], [address] [place] [phone] Zonia Hoffman, WARP YARN SORTER [address] [facility] [address] [place] [phone] Health Maintenance Due Date Last Done Comments [...] UKY-Zoster Vaccines (1 of 2) 05/16/2023 03/21/2023 [id number]-[id number] Vaccine ( - 2023- season) 2023 02/18/2021, 07/10/2020, 06/12/2020 UKY-Bone Density [...] this topic Medical Devices Implanted Type Area Safety Security Officer Device Identifier Shelf Expiration Date Model / Serial / Lot Port Clearvue Power 8fr - [id number] Implanted:Qty: 1 on 01/21/2024 [id number] / / Procedures Procedure Name Priority Date/Time [...] AM EDT [facility] Basophils Absolute 0.02 0.00 [...] APRN LAB BLOOD ORDERABLES Final Res ult [facility] [address] [place] [address] * (ABNORMAL) Comprehensive Metabolic Panel, Plasma (09/30/2024 [...] APRN LAB BLOOD ORDERABLES Final Res ult [facility] [address] [place] [address] * BIOPSY BONE MARROW (09/19/2024 12:00 PM [...] to surronding structures. Alternatives discussed: Delayed treatment Hallie protocol: Procedure explained and questions answered to [...] METHOD 09/19/2024 10:19 AM EDT [facility] Blood Blood sample taken from central line / Unknown (Port) Long-term Catheter / Unknown 09/19/2024 10:04 AM EDT 09/19/2024 10:18 AM EDT us New Mckinney MD LAB BLOOD ORDERABLES Final Re sult Performing Organization Address City/[facility] Co de Phone Number [facility] [address] [place] [address] * Transfuse platelets, Irradiated (09/19/2024 10:02 AM EDT) us Lexi Ferraro APRN BLOOD TRANSFUSION ORDERABL ES Final Result * Prepare Leukocyte Reduced Platelets (09/19/2024 9:08 AM EDT) Pathologist [facility] Product Code [id number] CH BLOO D BANK Dispense Status Transfused BLOOD BANK Blood Expiration Date [id number] BLOOD BANK Unit Number [id number] CH B LOOD BANK Product Blood Type 6200 BLOOD BANK Blood Type A+ BLOOD BANK us Provider Not In System BLOOD BANK PRODUCT ORD ERABLES Final Result Performing Organization Address [facility] de Phone Number BLOOD BANK [address] [place] [address] * Myeloid Focused Panel, 50 gene (09/19/2024 7:29 AM EDT) Interpretation The following two (2) genes, TP53 and DNMT3A, with persistent variants have been detected in this bone marrow specimen. The variant, p.[id number], in TP53 gene and the variant, p.[id number], in the RUNX 1 gene are not detectable at current cutoff and coverage established in this lab. Gene: TP53 Mutation: c.814G>A; p.Cvr830Pog Allele Frequency (%): 37% (45% Dec 2023) ID: [id number] Gene: DNMT3A Mutation: c.1522delC; p.Urj212UyzzdQdt97 3 Allele Frequency (%): 36% (48% Dec 2023) Additional Details on Mutation Identified: Gene Transcript Genome Chrom Coordinate RefVar DNMT3A [id number] Hg19 2 [id number] delC TP53 NM_000546.5 Hg19 17 [id number] G>A 09/29/2024 4:05 PM [facility] Methodology The following 50 genes [...] then sequenced on the Illumina NextSeq 2000 ([employer] [place]). A custom bioinformatics pipeline aligns [...] treatment of hematologic malignancies. 09/29/2024 4:05 PM [facility] Disclaimer This test was developed and its performance characteristics determined by the Clinical Molecular and Genomic Pathology Laboratory at the [facility]. It has not been cleared or [...] complexity clinical laboratory testing. 09/29/2024 4:05 PM [facility] Pathologist Signature Reviewed by: Corey Tejada 09/29/2024 4:05 PM EDT [facility] Bone Marrow Specimen from bone marrow obtained by aspiration / Unknown Non-blood Collection / Unknown 09/19/2024 7:29 AM EDT 09/19/2024 12:03 PM EDT New Mckinney MD LAB MOLECULAR DIAGNOSTICS ORD ERABLES Final Result Performing Organization Address City/[facility]/ZIP Co de Phone Number [facility] [address] * Chromosome Karyotype, Oncology (09/19/2024 7:29 AM EDT) Pathologist [facility] Specimen Type Bone Marrow 09/24/2024 2:37 PM EDT [facility] Clinical Indication Myelodysplastic Syndrome 09/24/2024 2:37 PM EDT [facility] Specimen Adequacy Adequate 025 2:37 PM EDT [facility] Chromosome Analysis Result Giemsa-banded metaphase cells from unstimulated bone marrow cultures showed a 46,XX[20] chromosome pattern. 09/24/2024 2:37 PM EDT [facility] Interpretation Normal female chromosome analysis. No clonal abnormalities were detected at current resolution. Clinical correlation is recommended. # cells counted = 20 # cells analyzed = 20 # cells karyotyped = 2 Band resolution: [id number] 09/24/2024 2:37 PM EDT [facility] Pathologist Signature Reviewed by: Corey Tejada 09/24/2024 2:37 PM EDT [facility] Bone Marrow Non-blood Collection / Unknown 09/19/2024 7:29 AM EDT 09/19/2024 12:35 PM EDT New Mckinney MD LAB CYTOGENETICS ORDERABLES F inal Result Performing Organization Address City/[facility]/ZIP Co de Phone Number [facility] [address] [place] [address] * Leukemia/Lymphoma - Immunophenotyping by Flow Cytometry (09/19/2024 7:29 AM EDT) [facility] Clinical Indication AML 09/22/2024 10:29 AM [facility] Flow Cytometry Interpretation A. BONE MARROW FOR FLOW CYTOMETRY: - MIXED MARROW ELEMENTS WITH NO EVIDENCE OF INCREASED BLASTS OR ABNORMAL LYMPHOID POPULATIONS, SEE COMMENT. 09/22/2024 10:29 AM [facility] Comments CD45/side scatter [...] lambda surface light chains 09/22/2024 10:29 AM [facility] Disclaimer This test was developed and its performance characteristics determined by the Immuno-Molecular Pathology Laboratory at the [facility]. It has not been cleared or [...] appears on the report. 09/22/2024 10:29 AM [facility] Pathologist Signature Reviewed by: Lisandra Epstein MD 09/22/2024 10:29 AM [facility] MRD Indicated Test Not Indicated 12/2024 10:29 AM [facility] Bone Marrow Specimen from bone marrow obtained by aspiration / Unknown Non-blood Collection / Unknown 09/19/2024 7:29 AM EDT 09/19/2024 12:13 PM EDT us New Mckinney MD LAB FLOW CYTOMETRY ORDERABLES Final Result [facility] [address] [place] [address] * Bone marrow exam (09/19/2024 7:29 AM EDT) Case Report Bone Marrow Case: [id number] Authorizing Provider: New Mckinney MD Collected: 09/19/2024 0729 Ordering Location: [facility] Hematology/BMT and Received: 09/19/2024 1216 Cellular Therapy Program Pathologist: Lisandra Epstein MD Specimens: A) - Bone Marrow Aspirate, right B) - Bone Marrow Biopsy, right C) - Peripheral Blood for Bone Marrow 3:15 PM EDT [facility] Cytogenetics Report, Addendum Chromosome Analysis Result Giemsa-banded metaphase cells from unstimulated bone marrow cultures showed a 46,XX[20] chromosome pattern. Interpretation Normal female chromosome analysis. No clonal abnormalities were detected at current resolution. Clinical correlation is recommended. 3:15 PM EDT [facility] Addendum electronically signed by Lisandra Epstein MD on 09/24/2024 at 1630 EDT Addendum Interpretation The following two (2) genes, TP53 and DNMT3A, with persistent variants have been detected in this bone marrow specimen. The variant, p.Qrt827Znz, in TP53 gene and the variant, p.Wim891qre, in the RUNX 1 gene are not detectable at current cutoff and coverage established in this lab. Gene: TP53 Mutation: c.814G>A; p.Cqy247Dsc Allele Frequency (%): 37% (45% Dec 2023) ID: [id number] Gene: DNMT3A Mutation: c.1522delC; p.Gcj044CtjgaUzh8 43 Allele Frequency (%): 36% (48% Dec 2023) Additional Details on Mutation Identified: 3:15 PM EDT [facility] Addendum electronically signed by Lisandra Epstein MD on 09/30/2024 at 1515 EDT Final Diagnosis PERIPHERAL BLOOD AND BONE MARROW, RIGHT POSTERIOR ILIAC CREST, (ASPIRATE SMEAR, AND CORE BIOPSY): - HYPOCELLULAR BONE MARROW WITH MARKEDLY DECREASED MEGAKARYOCYTES; NO SIGNIFICANT DYSPOIESIS OR INCREASE IN BLASTS. 3:15 PM EDT [facility] at 1453 EDT Clinical Information AML 09/14 3:15 PM EDT [facility] CBC and Differential PERIPHERAL [...] blasts are not seen. 3:15 PM EDT [facility] Bone Marrow Differential BONE MARROW DIFFERENTIAL: 200 cells Normal Patient Neutrophils 15-50 34 Metamyelocytes 4-19 3 Myelocytes 1-18 10 Promyelocytes 1-8 1 Blasts 0-2 1 Monocytes 0-5 4 Erythroid 16-38 22 Lymphocytes 3-24 13 Eosinophils 0-6 8 Basophils 0-2 0 Plasma cells 0-4 4 Other 3:15 PM EDT [facility] Bone Marrow Aspirate and [...] Bone trabeculae are unremarkable. 3:15 PM EDT [facility] Special and Immunohistochemical Stains Special Stain: A1-1 Vazquez-Giemsa A1-2 Vazquez-Giemsa A1-3 Vazquez-Giemsa C1-1 Vazquez-Giemsa IHC: B1-2 CD34 All controls show appropriate reactivity. All immunohistochemis try, in situ hybridization, and histochemical tests were developed by and are performed at the [facility], [address] [place] [address]. All tests reported here, except those addressing [...] negativity on decalcified specimens. 3:15 PM EDT [facility] Flow Cytometry Interpretation MIXED MARROW ELEMENTS WITH NO EVIDENCE OF INCREASED BLASTS OR ABNORMAL LYMPHOID POPULATIONS ([id number]). 3:15 PM EDT [facility] CYTOGENETICS/MOLECULA R INTERPRETATION Correlation with cytogenetic/molec ular analysis is suggested. 3:15 PM T [facility] Gross Description B. RIGHT A single specimen is received in formalin labeled bone marrow biopsy right posterior iliac crest and consists of 2 piece(s) of red/white tissue measuring 2.1/0.3 cm in length 0.2 cm in diameter. The specimen is submitted in to Histology for decalcification and routine processing. Cold Time: <1m 3:15 PM T [facility] Note: A resident was involved in the service. I attest I examined the relevant preparations for the specimens and confirmed the diagnosis or interpretation. 5 3:15 PM EDT [facility] Bone Marrow Peripheral blood [...] PATHOLOGY ORDERABLES Edit ed Result - Final [facility] [address] [place] [address] * Hepatitis C Antibody w/Reflex to HCV Quant PCR (01/07/2024 8:42 AM EDT) Hepatitis C Antibody Negative Negative 01/07/2024 10:13 AM EDT [facility] Blood Venous blood specimen / Unknown Venipuncture / Unknown 01/07/2024 8:42 AM EDT 01/07/2024 9:25 AM EDT New Mckinney MD LAB BLOOD ORDERABLES Final Re sult [facility] [address] [place] [address] from Last 3 Months or Most Recently Relevant to Health Maintenance Insurance MEDICARE [facility] Care Teams Cloth Mercerizer Operator Relationship Specialty Start Date End Date Jevon Vazquez MD [address] [place] [address] #1 #1 [place] [address] PCP - General 03/23/22
--- OUTSIDE RECORDS SUMMARY | 2024-10-03 09:03 | XMS_ITS | Encounter Summary ---
Author Organization Healthcare Address [address] [place] [address] Care Team Providers Care Ui Software Developer Name Role Phone Jevon Vazquez MD Primary Care Provider [phone] Encounter Details Date Type Department Care Team [...] Hematology/BMT and Cellular Therapy Program [address] [phone] 10/14/2024 11:30 AM EDT Office Visit [facility] Hematology/BMT and Cellular Therapy Program [address] [phone] Zonia Hoffman, LONG CHAIN QUILLER TENDER 800 [facility] [address] [place] [phone] documented as of this encounter Visit Diagnoses Not on filedocumented in this encounter Additional Health Concerns Assessment Noted Time A fall risk assessment has been complete d for the patient 09/19/2024 8:38 AM EDT A Body Mass Index follow-up plan has been documented for the patient 05/28/2024 1:52 PM EST documented as of this encounter Care Teams Ui Software Developer Relationship Specialty Start Date End Date Jevon Vazquez MD [address] [place] [address] #1 #1 [place] [id number] PCP - General 03/23/22 documented as of this encounter
[2024-10-03 09:31] LABS: Basophils % 0.4 % (0.1-2.0); Eosinophils # 0.1 Kmm3 (0.0-0.4); Eosinophils % 2.2 % (0.1-12.0); Hematocrit 25.4 % (37.0-47.0); Hemoglobin 8.9 g/dL (12.2-16.2); Immature Granulocytes # 0 10^3uL; Immature Granulocytes % 0 %; Lymphocytes # 0.9 K/mm3 (0.7-4.5); Lymphocytes % 38.1 % (10-50); Mean Corpuscular Hemoglobin 37.7 pg (27.0-31.2); Mean Corpuscular Volume 107.6 fl (81-99); Monocytes # 0.2 K/mm3 (0.1-1.0); Monocytes % 8.4 % (1.7-9.3); Neutrophils # 1.2 K/mm3 (1.8-7.8); Neutrophils % 50.9 % (37.0-80.0); Nucleated Red Blood Cells # 0 10^3/uL; Nucleated Red Blood Cells % 0 %; Red Blood Count 2.36 M/mm3 (4.20-5.40); White Blood Count 2.3 K/mm3 (4.8-10.8)
[2024-10-03 09:36] LABS: Albumin Level 3.5 g/dl (3.5-5.0); Chloride 110 mmol/L (98-107); Potassium 3.8 mmoL/L (3.5-5.1); Sodium 137 mmol/L (136-145)
[2024-10-03 09:37] LABS: Platelet Count 12 K/mm3 (142-424)
[2024-10-03 09:39] LABS: Alanine Aminotransferase 13 U/L (12-78); Albumin/Globulin Ratio 1.6 (1.1-1.8); Alkaline Phosphatase 41 U/L (38-126); Anion Gap 5.8 mEq/L (5-15); Aspartate Amino Transferase 36 U/L (14-36); Bilirubin,Total 0.2 mg/dl (0.2-1.3); Blood Urea Nitrogen 22 mg/dl (7-17); Calcium 9.3 mg/dl (8.4-10.2); Carbon Dioxide 25 mmol/L (22.0-30.0); Creatinine Clearance Estimated 46 mL/min (50-200); Estimated Glomerular Filt Rate 70 ml/min (>60); GFR (African American) 85 ML/MIN (>60); Globulin 2.2 g/dL (1.3-3.2); Glucose 152 mg/dl (74-100); Total Protein,Serum 5.7 g/dl (6.3-8.2)
[2024-10-03] MEDS: SODIUM CHLORIDE 0.9% 10ML FLUSH SYRINGE 10 ML IV (10:00)
== END 2024-10-03 09:48 | disposition home or self-care (01) ==
LOC: INF 09:00
PROVIDERS: PCP Family Medicine; Visit Provider Internal Medicine Medical Oncology
DX: C95.90 Leukemia, unspecified not having achieved remission (principal)
CPT/HCPCS: 36591; 80053; 85025; J1642

== ENCOUNTER 2024-10-06 08:55 | Outpatient (CLI) | payer MEDICARE, BC, SELFPAY ==
--- OUTSIDE RECORDS SUMMARY | 2024-09-19 07:30 | XMS_ITS | Encounter Summary ---
Author Organization [facility] Address [address] [place] [address] Care Team Providers Care Garment Cutter Name Role Phone Jevon Vazquez MD Primary Care Provider [phone] Reason for Visit * Reason Comments Nurse Visit Encounter Details Date Type Department Care Team ([facility] Contact Info) Description 09/19/2024 7:30 AM EDT Clinical Support [facility] Hematology/BMT and Cellular Therapy Program [address] [phone] Social History Tobacco Use Types Packs/Day Years [...] Upcoming Encounters Date Type Department Care Team ([facility] Contact Info) Description 10/14/2024 11:00 AM EDT Clinical Support [facility] Hematology/BMT and Cellular Therapy Program [address] [phone] 10/14/2024 11:30 AM EDT Office Visit [facility] Hematology/BMT and Cellular Therapy Program [address] [phone] Zonia Hoffman, INDEPENDENT PRODUCER 800 [facility] [address] [place] [address] 10/14/2024 4:30 PM EDT Appointment [facility] 800 [place] [address] 10/15/2024 2:00 PM EDT Appointment [facility] 800 [place] [address] 10/16/2024 2:00 PM EDT Appointment [facility] 800 [place] [address] 10/18/2024 1:00 PM EDT Appointment [facility] 2 [address] [place] [address] 10/19/2024 1:00 PM EDT Appointment [facility] 2 [address] [place] [address] 10/20/2024 3:30 PM EDT Appointment [facility] [address] [place] [address] 10/21/2024 4:30 PM EDT Appointment [facility] 2 [address] [place] [address] documented as of this encounter Visit Diagnoses Not on filedocumented in this encounter Additional Health Concerns Assessment Noted Time A fall risk assessment has been complete d for the patient 09/19/2024 8:38 AM EDT A Body Mass Index follow-up plan has been documented for the patient 05/28/2024 1:52 PM EST documented as of this encounter Care Teams Garment Cutter Relationship Specialty Start Date End Date Jevon Vazquez MD [address] [place] [address] #1 [address]1 [place] [address] PCP - General 03/23/22 documented as of this encounter
--- OUTSIDE RECORDS SUMMARY | 2024-09-19 09:30 | XMS_ITS | Encounter Summary ---
Author Organization Healthcare Address [address] [place] [address] Care Team Providers Care Administrative Support Assoc Name Role Phone Jevon Vazquez MD Primary Care Provider [phone] Reason for Visit * Reason Comments Follow-up Encounter Details Date Type Department Care Team (Latest Contact Info) Description 09/19/2024 9:30 AM EDT Clinical Support [facility] Cancer Acute Treatment Clinic [address] [place] [address] Acute myeloid leukemia not having achieved remission [...] Upcoming Encounters Date Type Department Care Team ([facility] st Contact Info) Description 10/14/2024 11:00 AM EDT Clinical Support [facility] Hematology/BMT and Cellular Therapy Program [address] [place] [address] 10/14/2024 11:30 AM EDT Office Visit [facility] Hematology/BMT and Cellular Therapy Program [address] [place] [address] Zonia Hoffman, FAUCET POLISHER 800 [facility] [address] [place] [address] 10/14/2024 4:30 PM EDT Appointment [facility] Infusion 800 [place] [address] 10/15/2024 2:00 PM EDT Appointment [facility] [address] [place] [address] 10/16/2024 2:00 PM EDT Appointment [facility] [address] [place] [address] 10/18/2024 1:00 PM EDT Appointment [facility] 2 [address] [place] [address] 10/19/2024 1:00 PM EDT Appointment [facility] 2 [address] [place] [address] 10/20/2024 3:30 PM EDT Appointment [facility] In[facility] [address] [place] [address] 10/21/2024 4:30 PM EDT Appointment [facility] Infusion Clinic 2 [address] [place] [address] documented as of this encounter Procedures Procedure Name Priority Date/Time Associated Diagnosis Comments PLATELET COUNT, BLOOD STAT 09/19/2024 10:04 AM EDT PREPARE PLATELETS Routine 09/19/2024 9:0 8 AM EDT documented in this encounter Results * (ABNORMAL) Platelet count (09/19/2024 10:04 AM EDT) Platelet Count 61(L) 155 - 369 10*3/uL LAB HEMATOLOGY METHOD 09/19/2024 10:19 AM EDT [facility] Blood Blood sample taken from central line / Unknown (Port) Long-term Catheter / Unknown 09/19/2024 10:04 AM EDT 09/19/2024 10:18 AM EDT us New Mckinney MD LAB BLOOD ORDERABLES Final Re sult [facility] [address] [place] [address] * Transfuse platelets, Irradiated (09/19/2024 10:02 AM EDT) us Lexi Ferraro APRN BLOOD TRANSFUSION ORDERABL ES Final Result * Prepare Leukocyte Reduced Platelets (09/19/2024 9:08 AM EDT) Product Code [id number] CH BLOO D BANK Dispense Status Transfused BLOOD BANK Blood Expiration Date [id number] BLOOD BANK Unit Number [id number] CH B LOOD BANK Product Blood Type 6200 BLOOD BANK Blood Type A+ CH BLOOD BANK us Provider Not In System BLOOD BANK PRODUCT ORD ERABLES Final Result BLOOD BANK [address] documented in this encounter Visit Diagnoses [...] documented as of this encounter Care Teams Administrative Support Assoc Relationship Specialty Start Date End Date Jevon Vazquez MD [address] [place] [address] #1 #1 [place] [id number] PCP - General 03/23/22 documented as of this encounter
--- OUTSIDE RECORDS SUMMARY | 2024-09-19 12:00 | XMS_ITS | Encounter Summary ---
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) Procedures Leukemia/Lymphoma - Immunophenotyping by Flow Cytometry New Mckinney MD [address] [facility] Cancer [address] [address] Phone: tel: fax: Referral ID Status Reason Start Date Expiration Date V isits Requested Visits Authorized [id number] Authorized 09/11/2024 03/13/2026 1 1 Encounter Details Date Type Department Care Team (Latest Contact Info) Description 09/19/2024 12:00 PM EDT Procedure Visit [facility] Hematology/BMT and Cellular Therapy Program [address] [phone] Lexi Ferraro, RODDY 800 [facility] Cancer [address] [address] Acute myeloid leukemia not having [...] to surronding structures. Alternatives discussed: Delayed treatment [facility] protocol: Procedure explained and questions answered to [...] Upcoming Encounters Date Type Department Care Team ([facility] st Contact Info) Description 10/14/2024 11:00 AM EDT Clinical Support [facility] Hematology/BMT and Cellular Therapy Program [address] [address] 10/14/2024 11:30 AM EDT Office Visit [facility] Hematology/BMT and Cellular Therapy Program [address] [place] [phone] Zonia Hoffman APRN 800 [facility] [address] [place] [phone] 10/14/2024 4:30 PM EDT Appointment [facility] [address] [place] [address] 10/15/2024 2:00 PM EDT Appointment [facility] [address] [place] [address] 10/16/2024 2:00 PM EDT Appointment [facility] [address] [place] [address] 10/18/2024 1:00 PM EDT Appointment [facility] [address] [place] [address] 10/19/2024 1:00 PM EDT Appointment [facility] [address] [place] [address] 10/20/2024 3:30 PM EDT Appointment [facility] [address] [place] [address] 10/21/2024 4:30 PM EDT Appointment [facility] [address] [place] [address] documented as of this encounter Procedures Procedure [...] to surronding structures. Alternatives discussed: Delayed treatment [facility] protocol: Procedure explained and questions answered to [...] Type Bone Marrow 09/24/2024 2:37 PM EDT [facility] Clinical Indication Myelodysplastic Syndrome 09/24/2024 2:37 PM EDT [facility] Specimen Adequacy Adequate 025 2:37 PM EDT [facility] Chromosome Analysis Result Giemsa-banded metaphase cells from unstimulated bone marrow cultures showed a 46,XX[20] chromosome pattern. 09/24/2024 2:37 PM EDT [facility] Interpretation Normal female chromosome analysis. No clonal abnormalities were detected at current resolution. Clinical correlation is recommended. # cells counted = 20 # cells analyzed = 20 # cells karyotyped = 2 Band resolution: 450-525 09/24/2024 2:37 PM EDT [facility] Pathologist Signature Reviewed by: Corey Tejada 09/24/2024 2:37 PM EDT [facility] Bone Marrow Non-blood Collection / Unknown 09/19/2024 7:29 AM EDT 09/19/2024 12:35 PM EDT us eNw Mckinney MD LAB CYTOGENETICS ORDERABLES F inal Result [facility] [address] [place] [address] * Myeloid Focused Panel, 50 gene (09/19/2024 7:29 AM EDT) Interpretation The following two (2) genes, TP53 and DNMT3A, with persistent variants have been detected in this bone marrow specimen. The variant, p.[id number], in TP53 gene and the variant, p.[id number], in the RUNX 1 gene are not detectable at current cutoff and coverage established in this lab. Gene: TP53 Mutation: c.814G>A; p.Hut335Zmc Allele Frequency (%): 37% (45% Dec 2023) ID: [id number] Gene: DNMT3A Mutation: c.1522delC; p.Bhf336GpptwPvo53 3 Allele Frequency (%): 36% (48% Dec 2023) Additional Details on Mutation Identified: Gene Transcript Genome Chrom Coordinate RefVar DNMT3A [id number] Hg19 2 [id number] delC TP53 [id number] Hg19 17 [id number] G>A 09/29/2024 4:05 PM EDT [facility] Methodology The following 50 genes [...] then sequenced on the Illumina NextSeq 2000 ([employer], [place]). A custom bioinformatics pipeline aligns [...] of hematologic malignancies. 09/29/2024 4:05 PM T [facility] Disclaimer This test was developed and its performance characteristics determined by the Clinical Molecular and Genomic Pathology Laboratory at the [facility]. It has not been cleared or approved [...] clinical laboratory testing. 09/29/2024 4:05 PM EDT [facility] Pathologist Signature Reviewed by: Corey Tejada 09/29/2024 4:05 PM [facility] Bone Marrow Specimen from bone marrow obtained by aspiration / Unknown Non-blood Collection / Unknown 09/19/2024 7:29 AM EDT 09/19/2024 12:03 PM EDT us New Mckinney MD LAB MOLECULAR DIAGNOSTICS ORD ERABLES Final Result [facility] [address] [place] [address], * Leukemia/Lymphoma - Immunophenotyping by Flow Cytometry (09/19/2024 7:29 AM EDT) Clinical Indication AML 09/22/2024 10:29 AM EDT [facility] Flow Cytometry Interpretation A. BONE MARROW FOR FLOW CYTOMETRY: - MIXED MARROW ELEMENTS WITH NO EVIDENCE OF INCREASED BLASTS OR ABNORMAL LYMPHOID POPULATIONS, SEE COMMENT. 09/22/2024 10:29 AM EDT [facility] Comments CD45/side scatter analysis shows a [...] surface light chains 09/22/2024 10:29 AM EDT [facility] Disclaimer This test was developed and its performance characteristics determined by the Immuno-Molecular Pathology Laboratory at the [facility]. It has not been cleared or approved [...] on the report. 09/22/2024 10:29 AM EDT [facility] Pathologist Signature Reviewed by: Lisandra Epstein MD 09/22/2024 10:29 AM EDT [facility] MRD Indicated Test Not Indicated 12/2024 10:29 AM EDT [facility] Bone Marrow Specimen from bone marrow obtained by aspiration / Unknown Non-blood Collection / Unknown 09/19/2024 7:29 AM EDT 09/19/2024 12:13 PM EDT us New Mckinney MD LAB FLOW CYTOMETRY ORDERABLES Final Result [facility] [address] [place] [address] * (ABNORMAL) CBC and differential (09/19/2024 7:29 AM EDT) WBC Count 2.70(L) 3.70 - 10.30 10*3/uL LAB HEMATOLOGY METHOD 09/19/2024 9:13 AM EDT [facility] RBC Count 1.86(L) 3.90 - 5.20 10*6/uL LAB HEMATOLOGY METHOD 09/19/2024 9:13 AM EDT [facility] HGB 7.1(L) 11.2 - 15.7 g/dL LAB HEMATOLOGY METHOD 09/19/2024 9:13 AM EDT [facility] HCT 21.5(L) 34.0 - 45.0 % LAB HEMATOLOGY METHOD 09/19/2024 9:13 AM EDT [facility] Platelet Count 14(LL) 155 - 369 10*3/uL LAB HEMATOLOGY METHOD 09/19/2024 9:13 AM EDT [facility] MCV 116(H) 79 - 98 fL LAB HEMATOLOGY METHOD 09/19/2024 9:13 AM EDT [facility] MCH 38.2(H) 26.0 - 32.0 pg LAB HEMATOLOGY METHOD 09/19/2024 9:13 AM EDT [facility] MCHC 33.0 30.7 - 35.5 g/dL LAB HEMATOLOGY METHOD 09/19/2024 9:13 AM EDT [facility] RDW 21.8(H) 11.5 - 14.5 % LAB HEMATOLOGY METHOD 09/19/2024 9:13 AM EDT [facility] MPV 13.5(H) 8.8 - 12.5 fL LAB HEMATOLOGY METHOD 09/19/2024 9:13 AM EDT [facility] nRBC 0.0 <=0.0 per 100 WBCs LAB HEMATOLOGY METHOD 09/19/2024 9:13 AM EDT [facility] Differential Type Automated LAB HEMATOLOGY METHOD 09/19/2024 9:13 AM EDT [facility] Neutrophils % 51 % LAB HEMATOLOGY METHOD 09/19/2024 9:13 AM EDT [facility] Lymphocytes % 41 % LAB HEMATOLOGY METHOD 09/19/2024 9:13 AM EDT [facility] Monocytes % 7 % LAB HEMATOLOGY METHOD 09/19/2024 9:13 AM EDT [facility] Eosinophils % 1 % LAB HEMATOLOGY METHOD 09/19/2024 9:13 AM EDT [facility] Basophils % 0 % LAB HEMATOLOGY METHOD 09/19/2024 9:13 AM EDT [facility] Immature Granulocytes % 0 % LAB HEMATOLOGY METHOD 09/19/2024 9:13 AM EDT [facility] Neutrophils Absolute 1.35(L) 1.60 - 6.10 10*3/uL LAB HEMATOLOGY METHOD 09/19/2024 9:13 AM EDT [facility] Lymphocytes Absolute 1.10(L) 1.20 - 3.90 10*3/uL LAB HEMATOLOGY METHOD 09/19/2024 9:13 AM EDT [facility] Monocytes Absolute 0.20(L) 0.30 - 0.90 10*3/uL LAB HEMATOLOGY METHOD 09/19/2024 9:13 AM EDT [facility] Eosinophils Absolute 0.03 0.00 - 0.50 10*3/uL LAB HEMATOLOGY METHOD 09/19/2024 9:13 AM EDT [facility] Basophils Absolute 0.01 0.00 - 0.10 10*3/uL LAB HEMATOLOGY METHOD 09/19/2024 9:13 AM EDT [facility] Immature Granulocytes Absolute 0.01 0.00 - 0.06 10*3/uL LAB HEMATOLOGY METHOD 09/19/2024 9:13 AM EDT [facility] Blood Blood sample taken from central line / Unknown (Port) Long-term Catheter / Unknown 09/19/2024 7:29 AM EDT 09/19/2024 8:08 AM EDT Narrative [facility] - 09/19/2024 9:13 AM EDT Therapeutic decision making should be based on absolute values, rather than percentages. us New Mckinney MD LAB BLOOD ORDERABLES Final Re sult [facility] [address] [place] [address] * Bone marrow exam (09/19/2024 7:29 AM EDT) Case Report Bone Marrow Case: [id number] Authorizing Provider: New Mckinney MD Collected: 09/19/2024 0729 Ordering Location: [facility] Hematology/BMT and Received: 09/19/2024 1216 Cellular Therapy Program Pathologist: Lisandra Epstein MD Specimens: A) - Bone Marrow Aspirate, right B) - Bone Marrow Biopsy, right C) - Peripheral Blood for Bone Marrow 3:15 PM EDT [facility] Cytogenetics Report, Addendum Chromosome Analysis Result Giemsa-banded metaphase cells from unstimulated bone marrow cultures showed a 46,XX[20] chromosome pattern. Interpretation Normal female chromosome analysis. No clonal abnormalities were detected at current resolution. Clinical correlation is recommended. 3:15 PM EDT [facility] Addendum electronically signed by Lisandra Epstein MD on 09/24/2024 at 1630 EDT Addendum Interpretation The following two (2) genes, TP53 and DNMT3A, with persistent variants have been detected in this bone marrow specimen. The variant, p.[id number], in TP53 gene and the variant, p.Nsc380zxx, in the RUNX 1 gene are not detectable at current cutoff and coverage established in this lab. Gene: TP53 Mutation: c.814G>A; p.Odz539Pqf Allele Frequency (%): 37% (45% Dec 2023) ID: [id number] Gene: DNMT3A Mutation: c.1522delC; p.Ouo615YyabbPjn9 43 Allele Frequency (%): 36% (48% Dec 2023) Additional Details on Mutation Identified: 3:15 PM EDT [facility] Addendum electronically signed by Lisandra Epstein MD on 09/30/2024 at 1515 EDT Final Diagnosis PERIPHERAL BLOOD AND BONE MARROW, RIGHT POSTERIOR ILIAC CREST, (ASPIRATE SMEAR, AND CORE BIOPSY): - HYPOCELLULAR BONE MARROW WITH MARKEDLY DECREASED MEGAKARYOCYTES; NO SIGNIFICANT DYSPOIESIS OR INCREASE IN BLASTS. 3:15 PM EDT [facility] at 1453 EDT Clinical Information AML 09/14 3:15 PM EDT [facility] CBC and Differential PERIPHERAL BLOOD: [...] blasts are not seen. 3:15 PM EDT [facility] Bone Marrow Differential BONE MARROW DIFFERENTIAL: 200 cells Normal Patient Neutrophils 15-50 34 Metamyelocytes 4-19 3 Myelocytes 1-18 10 Promyelocytes 1-8 1 Blasts 0-2 1 Monocytes 0-5 4 Erythroid 16-38 22 Lymphocytes 3-24 13 Eosinophils 0-6 8 Basophils 0-2 0 Plasma cells 0-4 4 Other 3:15 PM EDT [facility] Bone Marrow Aspirate and Biopsy [...] Bone trabeculae are unremarkable. 3:15 PM EDT [facility] Special and Immunohistochemical Stains Special Stain: A1-1 Vazquez-Giemsa A1-2 Vazquez-Giemsa A1-3 Vazquez-Giemsa C1-1 Vazquez-Giemsa IHC: B1-2 CD34 All controls show appropriate reactivity. All immunohistochemis try, in situ hybridization, and histochemical tests were developed by and are performed at the [facility], [address] [place] [address]. All tests reported here, except those addressing [...] negativity on decalcified specimens. 3:15 PM T [facility] Flow Cytometry Interpretation MIXED MARROW ELEMENTS WITH NO EVIDENCE OF INCREASED BLASTS OR ABNORMAL LYMPHOID POPULATIONS ([id number]). 3:15 PM EDT [facility] CYTOGENETICS/MOLECULA R INTERPRETATION Correlation with cytogenetic/molec ular analysis is suggested. 3:15 PM T [facility] Gross Description B. RIGHT A single specimen is received in formalin labeled bone marrow biopsy right posterior iliac crest and consists of 2 piece(s) of red/white tissue measuring 2.1/0.3 cm in length 0.2 cm in diameter. The specimen is submitted in to Histology for decalcification and routine processing. Cold Time: <1m 3:15 PM T [facility] Note: A resident was involved in the service. I attest I examined the relevant preparations for the specimens and confirmed the diagnosis or interpretation. 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
--- OUTSIDE RECORDS SUMMARY | 2024-09-30 09:00 | XMS_ITS | Encounter Summary ---
Author Organization Healthcare Address [address] [place] [address] Care Team Providers Care Health Care Marketing Manager Name Role Phone Jevon Vazquez MD Primary Care Provider [phone] Reason for Visit * Reason Comments Labs Only Encounter Details Date Type Department Care Team ([facility] Contact Info) Description 09/30/2024 9:00 AM EDT Clinical Support [facility] Hematology/BMT and Cellular Therapy Program [address] [phone] Jyoti Kemp Acute myeloid leukemia not having [...] Upcoming Encounters Date Type Department Care Team ([facility] Contact Info) Description 10/14/2024 11:00 AM EDT Clinical Support [facility] Hematology/BMT and Cellular Therapy Program [address] [phone] 10/14/2024 11:30 AM EDT Office Visit [facility] Hematology/BMT and Cellular Therapy Program [address] [phone] Zonia Hoffman, CHURCH ORGANIST 800 [facility] [address] [place] [phone] 10/14/2024 4:30 PM EDT Appointment [facility] [address] [place] [address] 10/15/2024 2:00 PM EDT Appointment [facility] [address] [place] [address] 10/16/2024 2:00 PM EDT Appointment [facility] [address] [place] [address] 10/18/2024 1:00 PM EDT Appointment [facility] 2 [address] [place] [address] 10/19/2024 1:00 PM EDT Appointment [facility] 2 [address] [place] [address] 10/20/2024 3:30 PM EDT Appointment [facility] [address] [place] [address] 10/21/2024 4:30 PM EDT Appointment [facility] 2 [address] [place] [address] documented as of this encounter Procedures Procedure [...] - 99 mg/dL 09/30/2024 10:20 AM EDT [facility] BUN, Plasma 21 8 - 23 mg/dL 09/30/2024 10:20 AM EDT [facility] Creatinine, Plasma 1.00 0.60 - 1.10 mg/dL 09/30/2024 10:20 AM EDT [facility] BUN/Creatinine Ratio 21 09/30/2024 10:20 AM EDT [facility] Sodium, Plasma 137 136 - 145 mmol/L 09/30/2024 10:20 AM EDT [facility] Potassium, Plasma 3.8 3.6 - 4.9 mmol/L 09/30/2024 10:20 AM EDT [facility] Chloride, Plasma 107 97 - 107 mmol/L 09/30/2024 10:20 AM EDT [facility] CO2, Plasma 22 22 - 29 mmol/L 09/30/2024 10:20 AM EDT [facility] Anion Gap 8 6 - 16 mmol/L 09/30/2024 10:20 AM EDT [facility] Total Calcium, Plasma 9.8 8.9 - 10.2 mg/dL 09/30/2024 10:20 AM EDT [facility] Total Protein 5.9(L) 6.3 - 7.9 g/dL 09/30/2024 10:20 AM EDT [facility] Albumin, Plasma 3.8 3.5 - 5.2 g/dL 09/30/2024 10:20 AM EDT [facility] AST, Plasma 28 10 - 35 U/L 09/30/2024 10:20 AM EDT [facility] ALT, Plasma 14 10 - 35 U/L 09/30/2024 10:20 AM EDT [facility] Alkaline Phosphatase, Plasma 34(L) 46 - 142 U/L 09/30/2024 10:20 AM EDT [facility] Total Bilirubin, Plasma 0.3 0.2 - 1.1 mg/dL 09/30/2024 10:20 AM EDT [facility] eGFRcr 59.6 mL/min/1.7 3m*2 09/30/2024 10:20 AM EDT [facility] Comment:Reported eGFRcr in m L/min/1.73m2 is based the CKD-EPI 2020 equation that does not use a race coefficient. Blood Venous blood specimen / Unknown (Port) Long-term Catheter / Unknown 09/30/2024 9:11 AM EDT 09/30/2024 9:50 AM EDT us Zonia Hardy [employer] CHURCH ORGANIST LAB BLOOD ORDERABLES Final Res ult [facility] [address] [place] [address] * (ABNORMAL) CBC and Differential (09/30/2024 9:11 AM EDT) WBC Count 3.34(L) 3.70 - 10.30 10*3/uL LAB HEMATOLOGY METHOD 09/30/2024 11:07 AM EDT [facility] RBC Count 1.91(L) 3.90 - 5.20 10*6/uL LAB HEMATOLOGY METHOD 09/30/2024 11:07 AM EDT [facility] HGB 7.7(L) 11.2 - 15.7 g/dL LAB HEMATOLOGY METHOD 09/30/2024 11:07 AM EDT [facility] HCT 22.8(L) 34.0 - 45.0 % LAB HEMATOLOGY METHOD 09/30/2024 11:07 AM EDT [facility] Platelet Count 17(LL) 155 - 369 10*3/uL LAB HEMATOLOGY METHOD 09/30/2024 11:07 AM EDT [facility] MCV 119(H) 79 - 98 fL LAB HEMATOLOGY METHOD 09/30/2024 11:07 AM EDT [facility] MCH 40.3(H) 26.0 - 32.0 pg LAB HEMATOLOGY METHOD 09/30/2024 11:07 AM EDT [facility] MCHC 33.8 30.7 - 35.5 g/dL LAB HEMATOLOGY METHOD 09/30/2024 11:07 AM EDT [facility] RDW 18.7(H) 11.5 - 14.5 % LAB HEMATOLOGY METHOD 09/30/2024 11:07 AM EDT [facility] MPV 11.1 8.8 - 12.5 fL LAB HEMATOLOGY METHOD 09/30/2024 11:07 AM EDT [facility] nRBC 0.0 <=0.0 per 100 WBCs LAB HEMATOLOGY METHOD 09/30/2024 11:07 AM EDT [facility] Differential Type Automated LAB HEMATOLOGY METHOD 09/30/2024 11:07 AM EDT [facility] Neutrophils % 65 % LAB HEMATOLOGY METHOD 09/30/2024 11:07 AM EDT [facility] Lymphocytes % 26 % LAB HEMATOLOGY METHOD 09/30/2024 11:07 AM EDT [facility] Monocytes % 7 % LAB HEMATOLOGY METHOD 09/30/2024 11:07 AM EDT [facility] Eosinophils % 1 % LAB HEMATOLOGY METHOD 09/30/2024 11:07 AM EDT [facility] Basophils % 1 % LAB HEMATOLOGY METHOD 09/30/2024 11:07 AM EDT [facility] Immature Granulocytes % 0 % LAB HEMATOLOGY METHOD 09/30/2024 11:07 AM EDT [facility] Neutrophils Absolute 2.17 1.60 - 6.10 10*3/uL LAB HEMATOLOGY METHOD 09/30/2024 11:07 AM EDT [facility] Lymphocytes Absolute 0.87(L) 1.20 - 3.90 10*3/uL LAB HEMATOLOGY METHOD 09/30/2024 11:07 AM EDT [facility] Monocytes Absolute 0.24(L) 0.30 - 0.90 10*3/uL LAB HEMATOLOGY METHOD 09/30/2024 11:07 AM EDT [facility] Eosinophils Absolute 0.03 0.00 - 0.50 10*3/uL LAB HEMATOLOGY METHOD 09/30/2024 11:07 AM EDT [facility] Basophils Absolute 0.02 0.00 - 0.10 10*3/uL LAB HEMATOLOGY METHOD 09/30/2024 11:07 AM EDT [facility] Immature Granulocytes Absolute 0.01 0.00 - 0.06 10*3/uL LAB HEMATOLOGY METHOD 09/30/2024 11:07 AM EDT [facility] Blood Venous blood specimen / Unknown (Port) Long-term Catheter / Unknown 09/30/2024 9:11 AM EDT 09/30/2024 9:34 AM EDT [facility] - 09/30/2024 11:07 AM EDT Therapeutic decision making should be based on absolute values, rather than percentages. 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
--- OUTSIDE RECORDS SUMMARY | 2024-09-30 09:30 | XMS_ITS | Encounter Summary ---
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 Encounter Details Date Type Department Care Team ([facility] st Contact Info) Description 09/30/2024 9:30 AM EDT Office Visit [facility] Hematology/BMT and Cellular Therapy Program [address] [address] Zonia Hoffman, BACTERIOLOGIST INDUSTRIAL 800 [facility] [address] [place] [phone] Acute myeloid leukemia not having achieved remission [...] Weight 55.7 kg (122 lb 12.7 oz) 09/30/2024 9:30 AM EDT Height - - Body Mass Index 21.07 09/19/2024 8:03 AM EDT documented in this encounter Miscellaneous Notes * Progress Notes - Zonia Hoffman, RODDY - 09/30/2024 9:30 AM EDT HEMATOLOGY ONCOLOGY NOTE Patient ID: Ashly Hernández is a 73 y.o. female. Referring Physician: Zonia Hoffman, BACTERIOLOGIST INDUSTRIAL 800 [facility] [address] [address] Primary Care Provider: Jevon Vazquez MD Chief [...] k/??L. 12/2023- seen by Dr. Manzano in [facility] for evaluation of anemia and lymphocytosis. B12/folate [...] interphase cells examined show a deletion of J5G614. Next generation sequencing: Abnormal: TP53 (c.814G>A; p.[id number]) frequency 45%, DMNT3A (c.1522delC; p.[id number]) frequency 48%, RUNX1 (c.336_338delGCC; p.[id number]) frequency 35% Azacitidine + Venetoclax Cycle 1: [...] - Continue local lab checks MWF at [facility] Allogenic transplant planning. 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 However, given her older age > 70, she would benefit from a geriatric BMT program and will make referrals should she be interested. Expected pancytopenia related to chemotherapy/AML. Check CBC x 3 times/week at [facility] Labs reviewed today, Hgb 7.7 , platelets [...] charts, reviewing results, and documenting. RODDY Cristina [facility] HEMATOLOGY/BMT AND CELLULAR THERAPY PROGRAM 800 [facility] [address] 40 minutes was spent on this encounter; [...] Upcoming Encounters Date Type Department Care Team ([facility] st Contact Info) Description 10/14/2024 11:00 AM EDT Clinical Support [facility] Hematology/BMT and Cellular Therapy Program 750 [facility], [address] [place] [address] [place] [address] 10/14/2024 11:30 AM EDT Office Visit [facility] Hematology/BMT and Cellular Therapy Program [address] [place] [address] Zonia Hoffman, BACTERIOLOGIST INDUSTRIAL 800 [facility] [address] [place] [phone] 10/14/2024 4:30 PM EDT Appointment [facility] [address] [place] [address] 10/15/2024 2:00 PM EDT Appointment [facility] [address] [place] [address] 10/16/2024 2:00 PM EDT Appointment [facility] [address] [place] [address] 10/18/2024 1:00 PM EDT Appointment [facility] 2 [address] [place] [address] 10/19/2024 1:00 PM EDT Appointment [facility] 2 [address] [place] [address] 10/20/2024 3:30 PM EDT Appointment [facility] [address] [place] [address] 10/21/2024 4:30 PM EDT Appointment [facility] 2 [address] [place] [address] documented as of this encounter Results * (ABNORMAL) Comprehensive Metabolic Panel, Plasma (09/30/2024 9:11 AM EDT) [facility] Glucose, Plasma 135(H) 74 - 99 mg/dL 09/30/2024 10:20 AM EDT [facility] BUN, Plasma 21 8 - 23 mg/dL 09/30/2024 10:20 AM EDT [facility] Creatinine, Plasma 1.00 0.60 - 1.10 mg/dL 09/30/2024 10:20 AM EDT [facility] BUN/Creatinine Ratio 21 09/30/2024 10:20 AM EDT [facility] Sodium, Plasma 137 136 - 145 mmol/L 09/30/2024 10:20 AM EDT [facility] Potassium, Plasma 3.8 3.6 - 4.9 mmol/L 09/30/2024 10:20 AM EDT [facility] Chloride, Plasma 107 97 - 107 mmol/L 09/30/2024 10:20 AM EDT [facility] CO2, Plasma 22 22 - 29 mmol/L 09/30/2024 10:20 AM EDT [facility] Anion Gap 8 6 - 16 mmol/L 09/30/2024 10:20 AM EDT [facility] Total Calcium, Plasma 9.8 8.9 - 10.2 mg/dL 09/30/2024 10:20 AM EDT [facility] Total Protein 5.9(L) 6.3 - 7.9 g/dL 09/30/2024 10:20 AM EDT [facility] Albumin, Plasma 3.8 3.5 - 5.2 g/dL 09/30/2024 10:20 AM EDT [facility] AST, Plasma 28 10 - 35 U/L 09/30/2024 10:20 AM EDT [facility] ALT, Plasma 14 10 - 35 U/L 09/30/2024 10:20 AM EDT [facility] Alkaline Phosphatase, Plasma 34(L) 46 - 142 U/L 09/30/2024 10:20 AM EDT [facility] Total Bilirubin, Plasma 0.3 0.2 - 1.1 mg/dL 09/30/2024 10:20 AM EDT [facility] eGFRcr 59.6 mL/min/1.7 3m*2 09/30/2024 10:20 AM EDT [facility] Comment:Reported eGFRcr in m L/min/1.73m2 is based the CKD-EPI 2020 equation that does not use a race coefficient. Blood Venous blood specimen / Unknown (Port) Long-term Catheter / Unknown 09/30/2024 9:11 AM EDT 09/30/2024 9:50 AM EDT us Zonia Hoffman APRN LAB BLOOD ORDERABLES Final Res ult [facility] [address] [place] [address] * (ABNORMAL) CBC and Differential (09/30/2024 9:11 AM EDT) WBC Count 3.34(L) 3.70 - 10.30 10*3/uL LAB HEMATOLOGY METHOD 09/30/2024 11:07 AM EDT [facility] RBC Count 1.91(L) 3.90 - 5.20 10*6/uL LAB HEMATOLOGY METHOD 09/30/2024 11:07 AM EDT [facility] HGB 7.7(L) 11.2 - 15.7 g/dL LAB HEMATOLOGY METHOD 09/30/2024 11:07 AM EDT [facility] HCT 22.8(L) 34.0 - 45.0 % LAB HEMATOLOGY METHOD 09/30/2024 11:07 AM EDT [facility] Platelet Count 17(LL) 155 - 369 10*3/uL LAB HEMATOLOGY METHOD 09/30/2024 11:07 AM EDT [facility] MCV 119(H) 79 - 98 fL LAB HEMATOLOGY METHOD 09/30/2024 11:07 AM EDT [facility] MCH 40.3(H) 26.0 - 32.0 pg LAB HEMATOLOGY METHOD 09/30/2024 11:07 AM EDT [facility] MCHC 33.8 30.7 - 35.5 g/dL LAB HEMATOLOGY METHOD 09/30/2024 11:07 AM EDT [facility] RDW 18.7(H) 11.5 - 14.5 % LAB HEMATOLOGY METHOD 09/30/2024 11:07 AM EDT [facility] MPV 11.1 8.8 - 12.5 fL LAB HEMATOLOGY METHOD 09/30/2024 11:07 AM EDT [facility] nRBC 0.0 <=0.0 per 100 WBCs LAB HEMATOLOGY METHOD 09/30/2024 11:07 AM EDT [facility] Differential Type Automated LAB HEMATOLOGY METHOD 09/30/2024 11:07 AM EDT [facility] Neutrophils % 65 % LAB HEMATOLOGY METHOD 09/30/2024 11:07 AM EDT [facility] Lymphocytes % 26 % LAB HEMATOLOGY METHOD 09/30/2024 11:07 AM EDT [facility] Monocytes % 7 % LAB HEMATOLOGY METHOD 09/30/2024 11:07 AM EDT [facility] Eosinophils % 1 % LAB HEMATOLOGY METHOD 09/30/2024 11:07 AM EDT [facility] Basophils % 1 % LAB HEMATOLOGY METHOD 09/30/2024 11:07 AM EDT [facility] Immature Granulocytes % 0 % LAB HEMATOLOGY METHOD 09/30/2024 11:07 AM EDT [facility] Neutrophils Absolute 2.17 1.60 - 6.10 10*3/uL LAB HEMATOLOGY METHOD 09/30/2024 11:07 AM EDT [facility] Lymphocytes Absolute 0.87(L) 1.20 - 3.90 10*3/uL LAB HEMATOLOGY METHOD 09/30/2024 11:07 AM EDT [facility] Monocytes Absolute 0.24(L) 0.30 - 0.90 10*3/uL LAB HEMATOLOGY METHOD 09/30/2024 11:07 AM EDT [facility] Eosinophils Absolute 0.03 0.00 - 0.50 10*3/uL LAB HEMATOLOGY METHOD 09/30/2024 11:07 AM EDT [facility] Basophils Absolute 0.02 0.00 - 0.10 10*3/uL LAB HEMATOLOGY METHOD 09/30/2024 11:07 AM EDT [facility] Immature Granulocytes Absolute 0.01 0.00 - 0.06 10*3/uL LAB HEMATOLOGY METHOD 09/30/2024 11:07 AM EDT [facility] Blood Venous blood specimen / Unknown (Port) Long-term Catheter / Unknown 09/30/2024 9:11 AM EDT 09/30/2024 9:34 AM EDT Narrative [facility] - 09/30/2024 11:07 AM EDT Therapeutic decision making should be based on absolute values, rather than percentages. us Zonia Hoffman APRN LAB BLOOD ORDERABLES Final Res ult [facility] [address] [place] [address] documented in this encounter Visit Diagnoses Diagnosis [...] documented as of this encounter Care Teams Tile Fitter Relationship Specialty Start Date End Date Jevon Vazquez MD [address] [place] [address] #1 #1 [id number] PCP - General 03/23/22 documented as of this encounter
[2024-10-06 09:00] VITALS: BMI 21.8
--- OUTSIDE RECORDS SUMMARY | 2024-10-06 09:07 | XMS_ITS | Clinical Summary ---
Author Organization [facility] Address [address] [place] [address] Care Team Providers Care Sleeve Presser Operator Name Role Phone David Vazquez Primary Care Provider Allergies No known active allergies Medications atorvastatin [...] series) 2025 Medical Devices Implanted Type Area Stapler Machine Device Identifier Shelf Expiration Date Model / Serial / Lot Mis Ply Scr 6.5x50mm - [id number] Implanted:Qty : 1 on 01/30/2023 by Ivan Bartholomew MD at [facility] Screw N/A: Spine Lumbar [employer] [id number] / / Mis Ply Scr 6.5x45mm - [id number] Implanted:Qty : 3 on 01/30/2023 by Ivan Bartholomew MD at [facility] Screw N/A: Spine Lumbar [employer] [id number] / / Reline Mas Reduction Screw 7.5x45 - [id number] Implanted:Qty : 2 on 01/30/2023 by Ivan Bartholomew MD at [facility] Screw N/A: Spine Lumbar [employer] [id number] / / Grft Dbm Vesuvius Putty 5cc - [id number] Implanted:Qty : 1 on 01/30/2023 by Ivan Bartholomew MD at [facility] [employer] [id number] 04/20/2025 [id number] 050D P / [id number] / Putty I-Factor 5.0cc - [id number] Implanted:Qty : 1 on 01/30/2023 by Ivan Bartholomew MD at [facility] N/A: Spine Lumbar [employer] 03/15/2025 [id number] / / [id number] Modulus Xlw [id number] 10 Degree - [id number] Implanted:Qty : 1 on 01/30/2023 by Ivan Bartholomew MD at [facility] N/A: Spine Lumbar [employer] [id number] / / [id number] Modulus Xlw [id number] - [id number] Implanted:Qty : 1 on 01/30/2023 by Ivan Bartholomew MD at [facility] N/A: Spine Lumbar [employer] 09/28/2027 [id number] / / [id number] Reln Lock Scr 5.5mm Opn Tulip - [id number] Implanted:Qty : 6 on 01/30/2023 by Ivan Bartholomew MD at [facility] N/A: Spine Lumbar [employer] [id number] / / Reln Mas Ti Petar 5.5x70mm - [id number] Implanted:Qty : 2 on 01/30/2023 by Ivan Bartholomew MD at [facility] N/A: Spine Lumbar [employer] [id number] / / Procedures Procedure Name Priority Date/Time [...] Hgb A1C 6.0(H) 4.0 - 5.6 % [facility] Comment: Reference Ranges [...] Glycohemoglobin Standardization program (NGSP) and [facility] Estimated Average Glucose 126(H) 68 - 114 mg/dL [facility] Whole Blood (Blood) 01/24/2023 2:32 PM EDT 01/24/2023 6:00 PM EDT us Ivan Bartholomew MD CHEMISTRY ORDERABLES Fin al Result [facility] [address] * (ABNORMAL) BASIC METABOLIC PANEL (BMP=EP1) (01/24/2023 2:32 PM EDT) Sodium 141 135 - 146 mmol/L [facility] Potassium 4.8 3.5 - 5.1 mmol/L [facility] Chloride 107 98 - 110 mmol/L [facility] CO2 24 22 - 29 mmol/L [facility] Anion Gap 10 5 - 13 mmol/L [facility] Comment:Anion gap calculatio n does not include potassium (K+) value. BUN 17 7 - 25 mg/dL [facility] Creatinine 1.20 0.50 - 1.20 mg/dL [facility] Glucose 125(H) 71 - 99 mg/dL [facility] Comment:Reference range (71- 99 mg/dL) refers only to fasting samples, and does not apply to non-fasting samples. eGFR CKD-EPI 2020 48 See Note [facility] Comment: eGFR calculated with 2020 CKD-EPI equation using creatinine, patient's age and gender. Other factors, especially muscle mass, may affect accuracy and need to be considered. Patient values should be interpreted as a trend. The reference interval is >60 mL/min/1.73m2. Calcium 10.3 8.5 - 10.5 mg/dL [facility] BUN/Creatinine Ratio 14 [facility] Serum 01/24/2023 2:32 PM EDT 01/24/2023 5:54 PM EDT us Lexi SUAREZ CHEMISTRY ORDERABLES Final Resu lt [facility] [address] from Last 3 Months or Most Recently Relevant to Health Maintenance Insurance MEDICARE PART A [facility] [address] [address] [place] [address] ANTH Advance Directives For more information, please contact: [phone] * Full Code (Latest Code Status on File) Date Activated Date Inactivated Comments 01/30/2023 9:13 AM No automated chest compression devices for V[facility] Patients Care Teams Sleeve Presser Operator Relationship Specialty Start Date End Date David Vazquez [address] [place] [phone] PCP - General 01/24/23
--- OUTSIDE RECORDS SUMMARY | 2024-10-06 09:07 | XMS_ITS | Encounter Summary ---
Author Organization Healthcare Address [address] [place] [address] Care Team Providers Care Metal Bed Assembler Name Role Phone Jevon Vazquez MD Primary Care Provider [phone] Encounter Details Date Type Department Care Team [...] Hematology/BMT and Cellular Therapy Program [address] [phone] 10/14/2024 11:30 AM EDT Office Visit [facility] Hematology/BMT and Cellular Therapy Program [address] [phone] Zonia Hoffman, RODDY 800 [facility] [address] [place] [phone] 10/14/2024 4:30 PM EDT Appointment [facility] [address] [place] [address] 10/15/2024 2:00 PM EDT Appointment [facility] [address] [place] [address] 10/16/2024 2:00 PM EDT Appointment [facility] [address] [place] [address] 10/18/2024 1:00 PM EDT Appointment [facility] [address] [place] [address] 10/19/2024 1:00 PM EDT Appointment [facility] 2 [address] [place] [address] 10/20/2024 3:30 PM EDT Appointment [facility] [address] [place] [address] 10/21/2024 4:30 PM EDT Appointment [facility] [address] [place] [address] documented as of this encounter Visit Diagnoses Not on filedocumented in this encounter Additional Health Concerns Assessment Noted Time A fall risk assessment has been complete d for the patient 09/19/2024 8:38 AM EDT A Body Mass Index follow-up plan has been documented for the patient 05/28/2024 1:52 PM EST documented as of this encounter Care Teams Metal Bed Assembler Relationship Specialty Start Date End Date Jevon Vazquez MD [address] [place] [address] #1 #1 [place] [address] PCP - General 03/23/22 documented as of this encounter
--- OUTSIDE RECORDS SUMMARY | 2024-10-06 09:07 | XMS_ITS | Encounter Summary ---
Author Organization Healthcare Address [address] [place] [address] Care Team Providers Care Dental Assisting Instructor Name Role Phone Jevon Vazquez MD Primary Care Provider [phone] Encounter Details Date Type Department Care Team [...] Hematology/BMT and Cellular Therapy Program [address] [address] 10/14/2024 11:30 AM EDT Office Visit [facility] Hematology/BMT and Cellular Therapy Program [address] [phone] Zonia Hoffman, RODDY 800 [facility] [address] [place] [address] 10/14/2024 4:30 PM EDT Appointment [facility] [address] [place] [address] 10/15/2024 2:00 PM EDT Appointment [facility] [address] [place] [address] 10/16/2024 2:00 PM EDT Appointment [facility] [address] [place] [address] 10/18/2024 1:00 PM EDT Appointment [facility] 2 [address] [place] [address] 10/19/2024 1:00 PM EDT Appointment [facility] 2 [address] [place] [address] 10/20/2024 3:30 PM EDT Appointment [facility] [address] [place] [address] 10/21/2024 4:30 PM EDT Appointment [facility] 2 [address] [place] [address] documented as of this encounter Visit Diagnoses Not on filedocumented in this encounter Additional Health Concerns Assessment Noted Time A fall risk assessment has been complete d for the patient 09/19/2024 8:38 AM EDT A Body Mass Index follow-up plan has been documented for the patient 05/28/2024 1:52 PM EST documented as of this encounter Care Teams Dental Assisting Instructor Relationship Specialty Start Date End Date Jevon Vazquez MD [address] [place] [address] #1 #1 [place] [address] PCP - General 03/23/22 documented as of this encounter
--- OUTSIDE RECORDS SUMMARY | 2024-10-06 09:07 | XMS_ITS | Encounter Summary ---
Author Organization [facility] Address [address] [place] [address] Care Team Providers Care Pill Coater Name Role Phone Jevon Vazquez MD Primary Care Provider [phone] Reason for Visit * Reason Comments Med Refill Encounter Details Date Type Department Care Team ([facility] Contact Info) Description 01/30/2024 Refill [facility] Hematology/BMT and Cellular Therapy Program [address] [phone] [place]in[place] MD 800 [facility] [address] [place] [phone] Social History Tobacco Use Types Packs/Day Years [...] Team ([facility] Contact Info) Description 10/14/2024 11:00 AM EDT Clinical Support [facility] Hematology/BMT and Cellular Therapy Program [address] [place] [address] 10/14/2024 11:30 AM EDT Office Visit [facility] Hematology/BMT and Cellular Therapy Program [address] [phone] Zonia Hoffman, MICROFILM [employer]ATING [employer] SUPERVISOR 800 [facility] [address] [place] [address] 10/14/2024 4:30 PM EDT Appointment [facility] 800 [place] [address] 10/15/2024 2:00 PM EDT Appointment [facility] [address] [place] [address] 10/16/2024 2:00 PM EDT Appointment [facility] [address] [place] [address] 10/18/2024 1:00 PM EDT Appointment [facility] 2 [address] [place] [address] 10/19/2024 1:00 PM EDT Appointment [facility] 2 [address] [place] [address] 10/20/2024 3:30 PM EDT Appointment [facility] [address] [place] [address] 10/21/2024 4:30 PM EDT Appointment [facility] 2 [address] [place] [address] documented as of this encounter Visit Diagnoses Not on filedocumented in this encounter Additional Health Concerns Assessment Noted Time A fall risk assessment has been complete d for the patient 01/11/2024 9:16 AM EDT A Body Mass Index follow-up plan has been documented for the patient 01/21/2024 6:16 AM EDT documented as of this encounter Care Teams Pill Coater Relationship Specialty Start Date End Date Jevon Vazquez MD [address] [place] [address] #1 #1 [place] [address] PCP - General 03/23/22 documented as of this encounter
--- OUTSIDE RECORDS SUMMARY | 2024-10-06 09:07 | XMS_ITS | Encounter Summary ---
Author Organization Healthcare Address [address] [place] [address] Care Team Providers Care Regional Medical Director Name Role Phone Jevon Vazquez MD Primary Care Provider [phone] Encounter Details Date Type Department Care Team [...] Hematology/BMT and Cellular Therapy Program [address] [address] 10/14/2024 11:30 AM EDT Office Visit [facility] Hematology/BMT and Cellular Therapy Program [address] [phone] Zonia Hoffman, RODDY 800 [facility] [address] [place] [address] 10/14/2024 4:30 PM EDT Appointment [facility] 800 [place] [address] 10/15/2024 2:00 PM EDT Appointment [facility] 800 [place] [address] 10/16/2024 2:00 PM EDT Appointment [facility] 800 [place] [address] 10/18/2024 1:00 PM EDT Appointment [facility] 2 [address] [place] [address] 10/19/2024 1:00 PM EDT Appointment [facility] 2 [address] [place] [address] 10/20/2024 3:30 PM EDT Appointment [facility] 800 [place] [address] 10/21/2024 4:30 PM EDT Appointment [facility] 2 [address] [place] [address] documented as of this encounter Visit Diagnoses Not on filedocumented in this encounter Additional Health Concerns Assessment Noted Time A fall risk assessment has been complete d for the patient 07/30/2024 8:29 AM EDT A Body Mass Index follow-up plan has been documented for the patient 05/28/2024 1:52 PM EST documented as of this encounter Care Teams Regional Medical Director Relationship Specialty Start Date End Date Jevon Vazquez MD [address] [place] [address] #1 [address] [place] [address] PCP - General 03/23/22 documented as of this encounter
--- OUTSIDE RECORDS SUMMARY | 2024-10-06 09:07 | XMS_ITS | Encounter Summary ---
Author Organization Healthcare Address [address] [place] [address] Care Team Providers Care Dry Cleaning Attendant Name Role Phone Jevon Vazquez MD Primary Care Provider [phone] Encounter Details Date Type Department Care Team [...] CC Hematology/BMT and Cellular Therapy Program [address] [address] 10/14/2024 11:30 AM EDT Office Visit [facility] Hematology/BMT and Cellular Therapy Program [address] [phone] Zonia Hoffman, RODDY 800 [facility] [address] [place] [phone] 10/14/2024 4:30 PM EDT Appointment [facility] 800 [place] [address] 10/15/2024 2:00 PM EDT Appointment [facility] 800 [place] [address] 10/16/2024 2:00 PM EDT Appointment [facility] 800 [place] [address] 10/18/2024 1:00 PM EDT Appointment [facility] 2 [address] [place] [address] 10/19/2024 1:00 PM EDT Appointment [facility] 2 [address] [place] [address] 10/20/2024 3:30 PM EDT Appointment [facility] 800 [place] [address] 10/21/2024 4:30 PM EDT Appointment [facility] 2 [address] [place] [address] documented as of this encounter Visit Diagnoses Not on filedocumented in this encounter Additional Health Concerns Assessment Noted Time A fall risk assessment has been complete d for the patient 07/30/2024 8:29 AM EDT A Body Mass Index follow-up plan has been documented for the patient 05/28/2024 1:52 PM EST documented as of this encounter Care Teams Dry Cleaning Attendant Relationship Specialty Start Date End Date Jevon Vazquez MD [address] [place] [address] #1 #[address] [place] [address] PCP - General 03/23/22 documented as of this encounter
--- OUTSIDE RECORDS SUMMARY | 2024-10-06 09:07 | XMS_ITS | Encounter Summary ---
Author Organization Healthcare Address [address] [place] [address] Care Team Providers Care Marine Biologist Name Role Phone Jevon Vazquez MD Primary Care Provider [phone] Encounter Details Date Type Department Care Team [...] Hematology/BMT and Cellular Therapy Program [address] [address] 10/14/2024 11:30 AM EDT Office Visit [facility] Hematology/BMT and Cellular Therapy Program [address] [address] Zonia Hoffman, RODDY 800 [facility] [address] [place] [phone] 10/14/2024 4:30 PM EDT Appointment [facility] 800 [place] [address] 10/15/2024 2:00 PM EDT Appointment [facility] [address] [place] [address] 10/16/2024 2:00 PM EDT Appointment [facility] 800 [place] [address] 10/18/2024 1:00 PM EDT Appointment [facility] 2 [address] [place] [address] 10/19/2024 1:00 PM EDT Appointment [facility] 2 [address] [place] [address] 10/20/2024 3:30 PM EDT Appointment [facility] [address] [place] [address] 10/21/2024 4:30 PM EDT Appointment [facility] 2 [address] [place] [address] documented as of this encounter Visit Diagnoses Not on filedocumented in this encounter Additional Health Concerns Assessment Noted Time A fall risk assessment has been complete d for the patient 09/30/2024 9:33 AM EDT A Body Mass Index follow-up plan has been documented for the patient 05/28/2024 1:52 PM EST documented as of this encounter Care Teams Marine Biologist Relationship Specialty Start Date End Date Jevon Vazquez MD [address] [place] [address] #1 [address] [place] [address] PCP - General 03/23/22 documented as of this encounter
--- OUTSIDE RECORDS SUMMARY | 2024-10-06 09:07 | XMS_ITS | Encounter Summary ---
Author Organization Healthcare Address [address] [place] [address] Care Team Providers Care Pedicab Driver Name Role Phone Jevon Vazquez MD Primary Care Provider [phone] Encounter Details Date Type Department Care Team [...] Hematology/BMT and Cellular Therapy Program [address] [address] 10/14/2024 11:30 AM EDT Office Visit [facility] Hematology/BMT and Cellular Therapy Program [address] [phone] Zonia Hoffman, RODDY 800 [facility] [address] [place] [address] 10/14/2024 4:30 PM EDT Appointment [facility] 800 [place] [address] 10/15/2024 2:00 PM EDT Appointment [facility] [address] [place] [address] 10/16/2024 2:00 PM EDT Appointment [facility] [address] [place] [address] 10/18/2024 1:00 PM EDT Appointment [facility] 2 [address] [place] [address] 10/19/2024 1:00 PM EDT Appointment [facility] 2 [address] [place] [address] 10/20/2024 3:30 PM EDT Appointment [facility] [address] [place] [address] 10/21/2024 4:30 PM EDT Appointment [facility] 2 [address] [place] [address] documented as of this encounter Visit Diagnoses Not on filedocumented in this encounter Additional Health Concerns Assessment Noted Time A fall risk assessment has been complete d for the patient 07/30/2024 8:29 AM EDT A Body Mass Index follow-up plan has been documented for the patient 05/28/2024 1:52 PM EST documented as of this encounter Care Teams Pedicab Driver Relationship Specialty Start Date End Date Jevon Vazquez MD [address] [place] [address] #1 #1 [place] [address] PCP - General 03/23/22 documented as of this encounter
--- OUTSIDE RECORDS SUMMARY | 2024-10-06 09:07 | XMS_ITS | Clinical Summary ---
Author Organization [facility] Address [address] 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) 09/30/2024 Telephone [facility] Cellular Therapy Program [address] [place] [phone] Zoraida Good RN 09/30/2024 Travel 09/29/2024 Travel 09/28/2024 Travel 09/27/2024 Travel 09/26/2024 Travel 09/25/2024 Travel 09/24/2024 Travel 09/23/2024 Travel 09/19/2024 12:00 PM EDT Procedure Visit [facility] Hematology[facility]BMT [facility] Cellular Therapy Program [address] [place] [phone] Lexi Ferraro, INFRASTRUCTURE PROJECT MANAGER 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) 09/19/2024 9:30 AM EDT Clinical Support [facility] [address] [facility]nd [place] [address] 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) 09/19/2024 7:30 AM EDT Clinical Support [facility] Hematology/BMT and Cellular Therapy Program [address] [place] [address] 09/19/2024 Telephone [facility] Hematology[facility]BMT and Cellular Therapy Program [address] [phone] Romana Richmond, AKBAR 09/19/2024 Orders Only [facility] Hematology[facility]BMT [facility] Cellular Therapy Program [address] [phone] 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, RN 09/19/2024 Travel 09/15/2024 Telephone [facility]ology[facility]BMT [facility] Cellular Therapy Program [address] [phone] Zonia Hoffman, INFRASTRUCTURE PROJECT MANAGER 09/15/2024 Travel 09/14/2024 Travel 09/13/2024 Travel 09/12/2024 Travel 09/12/2024 Refill [facility] Hematology[facility]BMT [facility] Cellular Therapy Program [address] [phone] New Mckinney MD 09/11/2024 Travel 09/10/2024 Travel 09/01/2024 Telephone [facility]ology[facility]BMT [facility] Cellular Therapy Program [address] [phone] Zonia Hoffman, INFRASTRUCTURE PROJECT MANAGER 08/31/2024 Travel 08/30/2024 Travel 08/18/2024 Telephone [facility]ology[facility]BMT [facility] Cellular Therapy Program [address] [place] [address] Romana Gorman, INFRASTRUCTURE PROJECT MANAGER 08/17/2024 Travel 08/16/2024 Travel 08/15/2024 Travel 08/13/2024 Travel 07/30/2024 8:30 AM EDT Office Visit [facility] Hematology/BMT and Cellular Therapy Program [address] [phone] Zonia Hoffman, INFRASTRUCTURE PROJECT MANAGER Pancytopenia (Primary Dx) 07/30/2024 8:00 AM EDT Clinical Support [facility]ology[facility]BMT [facility] Cellular Therapy Program [address] [phone] Pancytopenia 07/30/2024 Telephone [facility]ematology/BMT and Cellular Therapy Program [address] [place] [phone] Romana Richmond RN 07/30/2024 Refill [facility] Hematology/BMT and Cellular Therapy Program [address] [place] [phone] Daxa Elliott, manufacturing area manager 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); Immunosuppressed status (CMS/HCC) 07/30/2024 Travel 07/29/2024 Travel 07/28/2024 Travel 07/27/2024 Travel 07/26/2024 Travel 07/24/2024 Travel 07/23/2024 Travel 07/19/2024 Refill [facility]ology[facility]BMT [facility] Cellular Therapy Program [address] [phone] Zonia Hoffman, INFRASTRUCTURE PROJECT MANAGER 07/16/2024 9:00 AM EDT Office Visit [facility] Hematology/BMT and Cellular Therapy Program [address] [place] [phone] Zonia Hoffman, INFRASTRUCTURE PROJECT MANAGER Pancytopenia (Primary Dx); 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) 07/16/2024 8:30 AM EDT Clinical Support [facility] Hematology/BMT and Cellular Therapy Program [address] [phone] 07/16/2024 Travel 07/15/2024 Travel 07/15/2024 Telephone [facility] Hematology/BMT and Cellular Therapy Program [address] [facility], [address] [place] [address] [place] [address] Zonia Hoffman, INFRASTRUCTURE PROJECT MANAGER 07/14/2024 Travel 07/13/2024 Travel 07/12/2024 Travel 07/11/2024 [...] Team ([facility] st Contact Info) Description 10/14/2024 11:00 AM EDT Clinical Support [facility] Hematology/BMT and Cellular Therapy Program [address] [facility] [place] [address] 10/14/2024 11:30 AM EDT Office Visit [facility] Hematology/BMT and Cellular Therapy Program [address] [facility] [place] [address] Zonia Hoffman, INFRASTRUCTURE PROJECT MANAGER [address] [facility] [address] [place] [address] 10/14/2024 4:30 PM EDT Appointment [facility] H Infusion [address] [place] [address] 10/15/2024 2:00 PM EDT Appointment [facility]fusion [address] [place] [address] 10/16/2024 2:00 PM EDT Appointment [facility] Infusion [address] [place] [address] 10/18/2024 1:00 PM EDT Appointment [facility] 2 [address] [place] [address] 10/19/2024 1:00 PM EDT Appointment [facility] 2 [address] [place] [address] 10/20/2024 3:30 PM EDT Appointment [facility]fusion [address] [place] [address] 10/21/2024 4:30 PM EDT Appointment [facility] 2 [address] [place] [address] Health Maintenance Due Date Last Done Comments [...] UKY-Zoster Vaccines (1 of 2) 05/16/2023 03/21/2023 VHD-PUALW-30 Vaccine (4 - season) 2023 02/18/2021, 07/10/2020, [...] this topic Medical Devices Implanted Type Area Judicial Administrative Assistant Device Identifier Shelf Expiration Date Model / Serial / Lot Port Clearvue Power 8fr - [id number] Implanted:Qty: 1 on 01/21/2024 by Ness Sargent MD at [facility] [id number] / / Procedures Procedure Name Priority Date/Time [...] 9:11 AM EDT 09/30/2024 9:34 AM EDT [facility] - 09/30/2024 11:07 AM EDT Therapeutic decision making should be based on absolute values, rather than percentages. Zonia Hoffman APRN LAB BLOOD ORDERABLES Final Res ult [facility] [address] [place] [address] * (ABNORMAL) Comprehensive Metabolic Panel, Plasma (09/30/2024 [...] Res ult [facility] [address] [place] [address] * BIOPSY BONE MARROW (09/19/2024 12:00 PM [...] to surronding structures. Alternatives discussed: Delayed treatment Power protocol: Procedure explained and questions answered to [...] METHOD 09/19/2024 10:19 AM EDT [facility] Blood Blood sample taken from central line / Unknown (Port) Long-term Catheter / Unknown 09/19/2024 10:04 AM EDT 09/19/2024 10:18 AM EDT Result [facility] New Mckinney MD LAB BLOOD ORDERABLES Final Re sult [facility] [address] [place] [address] * Transfuse platelets, Irradiated (09/19/2024 10:02 AM EDT) Lexi Ferraro APRN BLOOD TRANSFUSION ORDERABL ES Final Result * Prepare Leukocyte Reduced Platelets (09/19/2024 9:08 AM EDT) Product Code T3572T16 CH BLOO D BANK Dispense Status Transfused BLOOD BANK Blood Expiration Date [id number] BLOOD BANK Unit Number [id number] CH B LOOD BANK Product Blood Type 6200 BLOOD BANK Blood Type A+ BLOOD BANK us Provider Not In System BLOOD BANK PRODUCT ORD ERABLES Final Result BLOOD BANK [address] [place] [address], * Myeloid Focused Panel, 50 gene (09/19/2024 7:29 AM EDT) Interpretation The following two (2) genes, TP53 and DNMT3A, with persistent variants have been detected in this bone marrow specimen. The variant, p.[id number], in TP53 gene and the variant, p.Orf912yco, in the RUNX 1 gene are not detectable at current cutoff and coverage established in this lab. Gene: TP53 Mutation: c.814G>A; p.Zrj813Lzc Allele Frequency (%): 37% (45% Dec 2023) ID: [id number] Gene: DNMT3A Mutation: c.1522delC; p.[id number] 3 Allele Frequency (%): 36% (48% Dec 2023) Additional Details on Mutation Identified: Gene Transcript Genome Chrom Coordinate RefVar DNMT3A [id number] Hg19 2 [id number] delC TP53 [id number] Hg19 17 [id number] G>A 09/29/2024 4:05 PM EDT [facility] LAB Methodology The following 50 genes were [...] then sequenced on the Illumina NextSeq 2000 ([employer] [place]). A custom bioinformatics pipeline aligns [...] of hematologic malignancies. 09/29/2024 4:05 PM EDT [facility] Disclaimer This test was developed and its performance characteristics determined by the Clinical Molecular and Genomic Pathology Laboratory at the [facility]. It has not been cleared or [...] clinical laboratory testing. 09/29/2024 4:05 PM EDT [facility] Pathologist Signature Reviewed by: Corey Tejada 09/29/2024 4:05 PM EDT [facility] Bone Marrow Specimen from bone marrow obtained by aspiration / Unknown Non-blood Collection / Unknown 09/19/2024 7:29 AM EDT 09/19/2024 12:03 PM EDT us New Mckinney MD LAB MOLECULAR DIAGNOSTICS ORD ERABLES Final Result [facility] [address] [place] [address], * Chromosome Karyotype, Oncology (09/19/2024 7:29 AM EDT) Specimen Type Bone Marrow 09/24/2024 2:37 PM EDT [facility] Clinical Indication Myelodysplastic Syndrome 09/24/2024 2:37 PM EDT [facility] Specimen Adequacy Adequate 025 2:37 PM EDT [facility] Chromosome Analysis Result Giemsa-banded metaphase cells from unstimulated bone marrow cultures showed a 46,XX[20] chromosome pattern. 09/24/2024 2:37 PM EDT [facility] Interpretation Normal female chromosome analysis. No clonal abnormalities were detected at current resolution. Clinical correlation is recommended. # cells counted = 20 # cells analyzed = 20 # cells karyotyped = 2 Band resolution: 450-525 09/24/2024 2:37 PM EDT [facility] Pathologist Signature Reviewed by: Corey Tejada 09/24/2024 2:37 PM EDT [facility] Bone Marrow Non-blood Collection / Unknown 09/19/2024 7:29 AM EDT 09/19/2024 12:35 PM EDT us New Mckinney MD LAB CYTOGENETICS ORDERABLES F inal Result [facility] [address] [place] [address] * Leukemia/Lymphoma - Immunophenotyping by Flow Cytometry (09/19/2024 7:29 AM EDT) Clinical Indication AML 09/22/2024 10:29 AM EDT [facility] Flow Cytometry Interpretation A. BONE MARROW FOR FLOW CYTOMETRY: - MIXED MARROW ELEMENTS WITH NO EVIDENCE OF INCREASED BLASTS OR ABNORMAL LYMPHOID POPULATIONS, SEE COMMENT. 09/22/2024 10:29 AM EDT [facility] Comments CD45/side scatter analysis [...] surface light chains 09/22/2024 10:29 AM EDT [facility] Disclaimer This test was developed and its performance characteristics determined by the Immuno-Molecular Pathology Laboratory at the [facility]. It has not been cleared or [...] on the report. 09/22/2024 10:29 AM EDT [facility] Pathologist Signature Reviewed by: Lisandra Epstein MD 09/22/2024 10:29 AM EDT [facility] MRD Indicated Test Not Indicated 12/2024 10:29 AM EDT [facility] Bone Marrow Specimen from bone marrow obtained by aspiration / Unknown Non-blood Collection / Unknown 09/19/2024 7:29 AM EDT 09/19/2024 12:13 PM EDT New Mckinney MD LAB FLOW CYTOMETRY ORDERABLES Final Result [facility] [address] [place] [address] * Bone marrow exam (09/19/2024 7:29 AM EDT) Case Report Bone Marrow Case: [id number] Authorizing Provider: New Mckinney MD Collected: 09/19/2024 0729 Ordering Location: [facility] Hematology/BMT and Received: 09/19/2024 1216 Cellular Therapy Program Pathologist: Lisandra Epstein MD Specimens: A) - Bone Marrow Aspirate, right B) - Bone Marrow Biopsy, right C) - Peripheral Blood for Bone Marrow 5 3:15 PM EDT [facility] Cytogenetics Report, Addendum Chromosome Analysis Result Giemsa-banded metaphase cells from unstimulated bone marrow cultures showed a 46,XX[20] chromosome pattern. Interpretation Normal female chromosome analysis. No clonal abnormalities were detected at current resolution. Clinical correlation is recommended. 3:15 PM EDT [facility] Addendum electronically signed by Lisandra Epstein MD on 09/24/2024 at 1630 EDT Addendum Interpretation The following two (2) genes, TP53 and DNMT3A, with persistent variants have been detected in this bone marrow specimen. The variant, p.Lhu527Llj, in TP53 gene and the variant, p.Uiy580wjh, in the RUNX 1 gene are not detectable at current cutoff and coverage established in this lab. Gene: TP53 Mutation: c.814G>A; p.Hia923Rfo Allele Frequency (%): 37% (45% Dec 2023) ID: [id number] Gene: DNMT3A Mutation: c.1522delC; p.[id number] 43 Allele Frequency (%): 36% (48% Dec 2023) Additional Details on Mutation Identified: 3:15 PM EDT [facility] Addendum electronically signed by Lisandra Epstein MD on 09/30/2024 at 1515 EDT Final Diagnosis PERIPHERAL BLOOD AND BONE MARROW, RIGHT POSTERIOR ILIAC CREST, (ASPIRATE SMEAR, AND CORE BIOPSY): - HYPOCELLULAR BONE MARROW WITH MARKEDLY DECREASED MEGAKARYOCYTES; NO SIGNIFICANT DYSPOIESIS OR INCREASE IN BLASTS. 3:15 PM EDT [facility] at 1453 EDT Clinical Information AML 09/14 3:15 PM EDT [facility] CBC and Differential PERIPHERAL [...] blasts are not seen. 3:15 PM EDT [facility] Bone Marrow Differential BONE MARROW DIFFERENTIAL: 200 cells Normal Patient Neutrophils 15-50 34 Metamyelocytes 4-19 3 Myelocytes 1-18 10 Promyelocytes 1-8 1 Blasts 0-2 1 Monocytes 0-5 4 Erythroid 16-38 22 Lymphocytes 3-24 13 Eosinophils 0-6 8 Basophils 0-2 0 Plasma cells 0-4 4 Other 3:15 PM EDT [facility] Bone Marrow Aspirate and Biopsy The [...] Bone trabeculae are unremarkable. 3:15 PM EDT [facility] Special and Immunohistochemical Stains Special Stain: A1-1 Vazquez-Giemsa A1-2 Vazquez-Giemsa A1-3 Vazquez-Giemsa C1-1 Vazquez-Giemsa IHC: B1-2 CD34 All controls show appropriate reactivity. All immunohistochemis try, in situ hybridization, and histochemical tests were developed by and are performed at the [facility], [address] [place] [address]. All tests reported here, except those addressing [...] negativity on decalcified specimens. 3:15 PM EDT [facility] Flow Cytometry Interpretation MIXED MARROW ELEMENTS WITH NO EVIDENCE OF INCREASED BLASTS OR ABNORMAL LYMPHOID POPULATIONS ([id number]). 3:15 PM EDT [facility] CYTOGENETICS/MOLECULA R INTERPRETATION Correlation with cytogenetic/molec ular analysis is suggested. 3:15 PM EDT [facility] Gross Description B. RIGHT A single specimen is received in formalin labeled bone marrow biopsy right posterior iliac crest and consists of 2 piece(s) of red/white tissue measuring 2.1/0.3 cm in length 0.2 cm in diameter. The specimen is submitted in to Histology for decalcification and routine processing. Cold Time: <1m 3:15 PM EDT [facility] Note: A resident was involved in the service. I attest I examined the relevant preparations for the specimens and confirmed the diagnosis or interpretation. 3:15 PM EDT [facility] Bone Marrow Peripheral blood [...] PATHOLOGY ORDERABLES Edit ed Result - Final [facility] [address] [place] [address] * Hepatitis C Antibody w/Reflex to HCV Quant PCR (01/07/2024 8:42 AM EDT) Hepatitis C Antibody Negative Negative 01/07/2024 10:13 AM EDT [facility] Blood Venous blood specimen / Unknown Venipuncture / Unknown 01/07/2024 8:42 AM EDT 01/07/2024 9:25 AM EDT us New Mckinney MD LAB BLOOD ORDERABLES Final Re sult [facility] [address] [place] [address] from Last 3 Months or Most Recently Relevant to Health Maintenance Insurance MEDICARE [facility] Care Teams Metal Ceiling Builder Relationship Specialty Start Date End Date Jevon Vazquez MD [address] [place] [address] #1 #1 [place] [address] PCP - General 03/23/22
--- OUTSIDE RECORDS SUMMARY | 2024-10-06 09:07 | XMS_ITS | Encounter Summary ---
Author Organization Healthcare Address [address] [place] [address] Care Team Providers Care Analytical Consultant Name Role Phone Jevon Vazquez MD [...] Hematology/BMT and Cellular Therapy Program [address] [phone] 10/14/2024 11:30 AM EDT Office Visit [facility] Hematology/BMT and Cellular Therapy Program [address] [phone] Zonia Hoffman, RODDY 800 [facility] [address] [place] [phone] 10/14/2024 4:30 PM EDT Appointment [facility] Infusion [address] [place] [address] 10/15/2024 2:00 PM EDT Appointment [facility] [address] [place] [address] 10/16/2024 2:00 PM EDT Appointment [facility] [address] [place] [address] 10/18/2024 1:00 PM EDT Appointment [facility] 2 [address] [place] [address] 10/19/2024 1:00 PM EDT Appointment [facility] 2 [address] [place] [address] 10/20/2024 3:30 PM EDT Appointment [facility] [address] [place] [address] 10/21/2024 4:30 PM EDT Appointment [facility] 2 [address] [place] [address] documented as of this encounter Visit Diagnoses Not on filedocumented in this encounter Additional Health Concerns Assessment Noted Time A fall risk assessment has been complete d for the patient 07/30/2024 8:29 AM EDT A Body Mass Index follow-up plan has been documented for the patient 05/28/2024 1:52 PM EST documented as of this encounter Care Teams Analytical Consultant Relationship Specialty Start Date End Date Jevon Vazquez MD [address] [place] [address] #1 [address] [place] [address] PCP - General 03/23/22 documented as of this encounter
--- OUTSIDE RECORDS SUMMARY | 2024-10-06 09:07 | XMS_ITS | Encounter Summary ---
Author Organization Healthcare Address [address] [place] [address] Care Team Providers Care Micropaleontologist Name Role Phone Jevon Vazquez MD Primary Care Provider [phone] Encounter Details Date Type Department Care Team [...] CC Hematology/BMT and Cellular Therapy Program [address] [phone] 10/14/2024 11:30 AM EDT Office Visit [facility] Hematology/BMT and Cellular Therapy Program [address] [address] Zonia Hoffman, RODDY 800 [facility] [address] [place] [address] 10/14/2024 4:30 PM EDT Appointment [facility] Infusion [address] [place] [address] 10/15/2024 2:00 PM EDT Appointment [facility] [address] [place] [address] 10/16/2024 2:00 PM EDT Appointment [facility] [address] [place] [address] 10/18/2024 1:00 PM EDT Appointment [facility] 2 [address] [place] [address] 10/19/2024 1:00 PM EDT Appointment [facility] 2 [address] [place] [address] 10/20/2024 3:30 PM EDT Appointment [facility] [address] [place] [address] 10/21/2024 4:30 PM EDT Appointment [facility] 2 [address] [place] [address] documented as of this encounter Visit Diagnoses Not on filedocumented in this encounter Additional Health Concerns Assessment Noted Time A fall risk assessment has been complete d for the patient 07/30/2024 8:29 AM EDT A Body Mass Index follow-up plan has been documented for the patient 05/28/2024 1:52 PM EST documented as of this encounter Care Teams Micropaleontologist Relationship Specialty Start Date End Date Jevon Vazquez MD [address] [place] [address] #1 [address] [place] [address] PCP - General 03/23/22 documented as of this encounter
--- OUTSIDE RECORDS SUMMARY | 2024-10-06 09:07 | XMS_ITS | Encounter Summary ---
Author Organization Healthcare Address [address] [place] [address] Care Team Providers Care Provider Relations Advocate Name Role Phone Jevon Vazquez MD Primary Care Provider [phone] Encounter Details Date Type Department Care Team ([facility] Contact Info) Description 09/19/2024 Orders Only [facility] Hematology/BMT and Cellular Therapy Program [address] [phone] 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, RN [facility] Social History [...] Upcoming Encounters Date Type Department Care Team ([facility] Contact Info) Description 10/14/2024 11:00 AM EDT Clinical Support [facility] Hematology/BMT and Cellular Therapy Program [address] [phone] 10/14/2024 11:30 AM EDT Office Visit [facility] Hematology/BMT and Cellular Therapy Program [address] [phone] Zonia Hoffman, CMM INSPECTOR 800 [facility] [address] [place] [phone] 10/14/2024 4:30 PM EDT Appointment [facility] Infusion [address] [place] [address] 10/15/2024 2:00 PM EDT Appointment [facility] [address] [place] [address] 10/16/2024 2:00 PM EDT Appointment [facility] [address] [place] [address] 10/18/2024 1:00 PM EDT Appointment [facility] 2 [address] [place] [address] 10/19/2024 1:00 PM EDT Appointment [facility] 2 [address] [place] [address] 10/20/2024 3:30 PM EDT Appointment [facility] [address] [place] [address] 10/21/2024 4:30 PM EDT Appointment [facility] 2 [address] [place] [address] documented as of this encounter Visit Diagnoses Not on filedocumented in this encounter Additional Health Concerns Assessment Noted Time A fall risk assessment has been complete d for the patient 09/19/2024 8:38 AM EDT A Body Mass Index follow-up plan has been documented for the patient 05/28/2024 1:52 PM EST documented as of this encounter Care Teams Provider Relations Advocate Relationship Specialty Start Date End Date Jevon Vazquez MD [address] [place] [address] #1 [address]1 [place] [address] PCP - General 03/23/22 documented as of this encounter
--- OUTSIDE RECORDS SUMMARY | 2024-10-06 09:07 | XMS_ITS | Encounter Summary ---
Author Organization Healthcare Address [address] [place] [address] Care Team Providers Care Roundhouse Worker Name Role Phone Jevon Vazquez MD Primary Care Provider [phone] Encounter Details Date Type Department Care Team ([facility] st Contact Info) Description 09/01/2024 Telephone PAV CC Hematology/BMT and Cellular Therapy Program [address] [address] Zonia Hoffman, COMMUNITY RELATIONS REPRESENTATIVE 800 [facility] [address] [place] [phone] Social History Tobacco Use Types Packs/Day Years [...] told her to cancel. Please confirm Callback number:[phone] documented in this encounter Plan of Treatment Upcoming Encounters Date Type Department Care Team (Late st Contact Info) Description 10/14/2024 11:00 AM EDT Clinical Support PAV Hematology/BMT and Cellular Therapy Program [address] [address] 10/14/2024 11:30 AM EDT Office Visit PAV Hematology/BMT and Cellular Therapy Program [address] [address] Zonia Hoffman, COMMUNITY RELATIONS REPRESENTATIVE 800 [facility] [address] [place] [address] 10/14/2024 4:30 PM EDT Appointment PAV H Infusion 800 [place] [address] 10/15/2024 2:00 PM EDT Appointment P[facility] H Infusion 800 [place] [address] 10/16/2024 2:00 PM EDT Appointment [facility] H Infusion 800 [place] [address] 10/18/2024 1:00 PM EDT Appointment [facility] 2 [address] [place] [address] 10/19/2024 1:00 PM EDT Appointment [facility] 2 744 [place] [address] 10/20/2024 3:30 PM EDT Appointment [facility] H Infusion 800 [place] [address] 10/21/2024 4:30 PM EDT Appointment [facility] 2 [address]44 [place] [address] documented as of this encounter Visit Diagnoses Not on filedocumented in this encounter Additional Health Concerns Assessment Noted Time A fall risk assessment has been complete d for the patient 07/30/2024 8:29 AM EDT A Body Mass Index follow-up plan has been documented for the patient 05/28/2024 1:52 PM EST documented as of this encounter Care Teams Roundhouse Worker Relationship Specialty Start Date End Date Jevon Vazquez MD [address] [place] [address] #1 #1 [place] [address] PCP - General 03/23/22 documented as of this encounter
--- OUTSIDE RECORDS SUMMARY | 2024-10-06 09:07 | XMS_ITS | Encounter Summary ---
Author Organization Healthcare Address [address] [place] [address] Care Team Providers Care Airfield Services Officer Name Role Phone Jevon Vazquez MD Primary Care Provider [phone] Encounter Details Date Type Department Care Team [...] Hematology/BMT and Cellular Therapy Program [address] [address] 10/14/2024 11:30 AM EDT Office Visit PAV CC Hematology/BMT and Cellular Therapy Program [address] [address] Zonia Hoffman, RODDY 800 [facility] [address] [place] [address] 10/14/2024 4:30 PM EDT Appointment PAV H Infusion 800 [place] [address] 10/15/2024 2:00 PM EDT Appointment [facility] H Infusion 800 [place] [address] 10/16/2024 2:00 PM EDT Appointment [facility] H Infusion 800 [place] [address] 10/18/2024 1:00 PM EDT Appointment [facility] 2 [address] [place] [address] 10/19/2024 1:00 PM EDT Appointment [facility] 2 [address] [place] [address] 10/20/2024 3:30 PM EDT Appointment [facility] H Infusion 800 [place] [address] 10/21/2024 4:30 PM EDT Appointment [facility] 2 [address] [place] [address] documented as of this encounter Visit Diagnoses Not on filedocumented in this encounter Additional Health Concerns Assessment Noted Time A fall risk assessment has been complete d for the patient 07/30/2024 8:29 AM EDT A Body Mass Index follow-up plan has been documented for the patient 05/28/2024 1:52 PM EST documented as of this encounter Care Teams Airfield Services Officer Relationship Specialty Start Date End Date Jevon Vazquez MD [address] [place] [address] #1 [address] [place] [address] PCP - General 03/23/22 documented as of this encounter
--- OUTSIDE RECORDS SUMMARY | 2024-10-06 09:07 | XMS_ITS | Encounter Summary ---
Author Organization [facility] Address [address] [place] [address] Care Team Providers Care Director Of Restaurant Name Role Phone Jevon Vazquez MD Primary Care Provider [phone] Reason for Visit * Reason Comments Med Refill Encounter Details Date Type Department Care Team ([facility] Contact Info) Description 09/12/2024 Refill PAV CC Hematology/BMT and Cellular Therapy Program [address] [phone] [place] MD 800 [facility] [address] [place] [phone] Social History Tobacco Use Types Packs/Day Years [...] Department Care Team ([facility] Contact Info) Description 10/14/2024 11:00 AM EDT Clinical Support PAV CC Hematology/BMT and Cellular Therapy Program [address] [phone] 10/14/2024 11:30 AM EDT Office Visit PAV CC Hematology/BMT and Cellular Therapy Program [address] [address] Zonia Hoffman, JEWELRY INSPECTOR 800 [facility] [address] [place] [address] 10/14/2024 4:30 PM EDT Appointment [facility] H Infusion 800 [place] [address] 10/15/2024 2:00 PM EDT Appointment [facility] H Infusion 800 [place] [address] 10/16/2024 2:00 PM EDT Appointment [facility] H Infusion [address] [place] [address] 10/18/2024 1:00 PM EDT Appointment [facility] 2 [address] [place] [address] 10/19/2024 1:00 PM EDT Appointment [facility] 2 [address] [place] [address] 10/20/2024 3:30 PM EDT Appointment [facility] H Infusion [address] [place] [address] 10/21/2024 4:30 PM EDT Appointment [facility] 2 [address] [place] [address] documented as of this encounter Visit Diagnoses Not on filedocumented in this encounter Additional Health Concerns Assessment Noted Time A fall risk assessment has been complete d for the patient 07/30/2024 8:29 AM EDT A Body Mass Index follow-up plan has been documented for the patient 05/28/2024 1:52 PM EST documented as of this encounter Care Teams Director Of Restaurant Relationship Specialty Start Date End Date Jevon Vazquez MD [address] [place] [address] #1 #1 [place] [address] PCP - General 03/23/22 documented as of this encounter
--- OUTSIDE RECORDS SUMMARY | 2024-10-06 09:07 | XMS_ITS | Encounter Summary ---
Author Organization Healthcare Address [address] [place] [address] Care Team Providers Care Sewing Teacher Name Role Phone Jevon Vazquez MD Primary Care Provider [phone] Encounter Details Date Type Department Care Team [...] Hematology/BMT and Cellular Therapy Program [address] [address] 10/14/2024 11:30 AM EDT Office Visit PAV CC Hematology/BMT and Cellular Therapy Program [address] [address] Zonia Hoffman, RODDY 800 [facility] [address] [place] [address] 10/14/2024 4:30 PM EDT Appointment [facility] H Infusion 800 [place] [address] 10/15/2024 2:00 PM EDT Appointment [facility] H Infusion 800 [place] [address] 10/16/2024 2:00 PM EDT Appointment [facility] H Infusion 800 [place] [address] 10/18/2024 1:00 PM EDT Appointment [facility] 2 7[address] [place] [address] 10/19/2024 1:00 PM EDT Appointment [facility] 2 [address] [place] [address] 10/20/2024 3:30 PM EDT Appointment [facility] H Infusion 800 [place] [address] 10/21/2024 4:30 PM EDT Appointment [facility] 2 [address] [place] [address] documented as of this encounter Visit Diagnoses Not on filedocumented in this encounter Additional Health Concerns Assessment Noted Time A fall risk assessment has been complete d for the patient 07/30/2024 8:29 AM EDT A Body Mass Index follow-up plan has been documented for the patient 05/28/2024 1:52 PM EST documented as of this encounter Care Teams Sewing Teacher Relationship Specialty Start Date End Date Jevon Vazquez MD [address] [place] [address] #1 #[address] [place] [address] PCP - General 03/23/22 documented as of this encounter
--- OUTSIDE RECORDS SUMMARY | 2024-10-06 09:07 | XMS_ITS ---
Author Organization [facility] Address [address] [place] [address] Care Team Providers Care School Bus Driver/Mechanic Name Role Phone Jevon Vazquez MD Primary Care Provider [phone] Active Problems Problem Noted Date Diagnosed Date [...] Kerma 3 mGy 3 mGy 0 mGy CTDIvol 72.2 mGy 72.2 mGy 0 mGy Air Kerma Area Product 62.29 Gym 62.29 Gym 0 Gym Radiation (DLP) 280 mGy-cm 280 mGy-cm 0 mGy-cm
--- OUTSIDE RECORDS SUMMARY | 2024-10-06 09:07 | XMS_ITS | Encounter Summary ---
Author Organization Healthcare Address [address] [place] [address] Care Team Providers Care Doughnut Machine Operator Helper Name Role Phone Jevon Vazquez MD Primary Care Provider [phone] Encounter Details Date Type Department Care Team [...] Hematology/BMT and Cellular Therapy Program [address] [address] 10/14/2024 11:30 AM EDT Office Visit PAV CC Hematology/BMT and Cellular Therapy Program [address] [address] Zonia Hoffman, RODDY 800 [facility] [address] [place] [address] 10/14/2024 4:30 PM EDT Appointment P[facility] H Infusion 800 [place] [address] 10/15/2024 2:00 PM EDT Appointment [facility] H Infusion 800 [place] [address] 10/16/2024 2:00 PM EDT Appointment [facility] H Infusion 800 [place] [address] 10/18/2024 1:00 PM EDT Appointment [facility]fusion [facility] 2 744 [place] [address] 10/19/2024 1:00 PM EDT Appointment [facility] 2 744 [place] [address] 10/20/2024 3:30 PM EDT Appointment [facility] H Infusion 800 [place] [address] 10/21/2024 4:30 PM EDT Appointment [facility] 2 [address]44 [place] [address] documented as of this encounter Visit Diagnoses Not on filedocumented in this encounter Additional Health Concerns Assessment Noted Time A fall risk assessment has been complete d for the patient 07/30/2024 8:29 AM EDT A Body Mass Index follow-up plan has been documented for the patient 05/28/2024 1:52 PM EST documented as of this encounter Care Teams Doughnut Machine Operator Helper Relationship Specialty Start Date End Date Jevon Vazquez MD [address] [place] [address] #1 #[address] [place] [address] PCP - General 03/23/22 documented as of this encounter
--- OUTSIDE RECORDS SUMMARY | 2024-10-06 09:07 | XMS_ITS | Encounter Summary ---
Author Organization Healthcare Address [address] [place] [address] Care Team Providers Care Vulcanizing Machine Operator Name Role Phone Jevon Vazquez MD Primary Care Provider [phone] Encounter Details Date Type Department Care Team [...] Hematology/BMT and Cellular Therapy Program [address] [address] 10/14/2024 11:30 AM EDT Office Visit PAV CC Hematology/BMT and Cellular Therapy Program [address] [address] Zonia Hoffman, RODDY 800 [facility] [address] [place] [address] 10/14/2024 4:30 PM EDT Appointment P[facility] H Infusion 800 [place] [address] 10/15/2024 2:00 PM EDT Appointment [facility] H Infusion 800 [place] [address] 10/16/2024 2:00 PM EDT Appointment [facility] H Infusion 800 [place] [address] 10/18/2024 1:00 PM EDT Appointment [facility] 2 [address] [place] [address] 10/19/2024 1:00 PM EDT Appointment [facility] 2 [address] [place] [address] 10/20/2024 3:30 PM EDT Appointment [facility] H Infusion [address] [place] [address] 10/21/2024 4:30 PM EDT Appointment [facility] 2 [address] [place] [address] documented as of this encounter Visit Diagnoses Not on filedocumented in this encounter Additional Health Concerns Assessment Noted Time A fall risk assessment has been complete d for the patient 07/30/2024 8:29 AM EDT A Body Mass Index follow-up plan has been documented for the patient 05/28/2024 1:52 PM EST documented as of this encounter Care Teams Vulcanizing Machine Operator Relationship Specialty Start Date End Date Jevon Vazquez MD [address] [place] [address] #1 #[address] [place] [address] PCP - General 03/23/22 documented as of this encounter
--- OUTSIDE RECORDS SUMMARY | 2024-10-06 09:07 | XMS_ITS | Encounter Summary ---
Author Organization Healthcare Address [address] [place] [address] Care Team Providers Care Reverse Unit Operator Fisherman Name Role Phone Jevon Vazquez MD Primary Care Provider [phone] Encounter Details Date Type Department Care Team [...] Hematology/BMT and Cellular Therapy Program [address] [address] 10/14/2024 11:30 AM EDT Office Visit PAV CC Hematology/BMT and Cellular Therapy Program [address] [address] Zonia Hoffman, RODDY 800 [facility] [address] [place] [address] 10/14/2024 4:30 PM EDT Appointment P[facility] H Infusion 800 [place] [address] 10/15/2024 2:00 PM EDT Appointment [facility] H Infusion 800 [place] [address] 10/16/2024 2:00 PM EDT Appointment [facility] H Infusion 800 [place] [address] 10/18/2024 1:00 PM EDT Appointment [facility] 2 [address] [place] [address] 10/19/2024 1:00 PM EDT Appointment [facility] 2 [address] [place] [address] 10/20/2024 3:30 PM EDT Appointment [facility] H Infusion 800 [place] [address] 10/21/2024 4:30 PM EDT Appointment [facility]fusion [facility] 2 [address] [place] [address] documented as of this encounter Visit Diagnoses Not on filedocumented in this encounter Additional Health Concerns Assessment Noted Time A fall risk assessment has been complete d for the patient 09/19/2024 8:38 AM EDT A Body Mass Index follow-up plan has been documented for the patient 05/28/2024 1:52 PM EST documented as of this encounter Care Teams Reverse Unit Operator Fisherman Relationship Specialty Start Date End Date Jevon Vazquez MD [address] [place] [address] #1 #1 [place] [address] PCP - General 03/23/22 documented as of this encounter
--- OUTSIDE RECORDS SUMMARY | 2024-10-06 09:07 | XMS_ITS | Encounter Summary ---
Author Organization Healthcare Address [address] [place] [address] Care Team Providers Care Engineering Surveyor Name Role Phone Jevon Vazquez MD Primary Care Provider [phone] Encounter Details Date Type Department Care Team [...] Hematology/BMT and Cellular Therapy Program [address] [address] 10/14/2024 11:30 AM EDT Office Visit PAV CC Hematology/BMT and Cellular Therapy Program [address] [address] Zonia Hoffman, RODDY 800 [facility] [address] [place] [address] 10/14/2024 4:30 PM EDT Appointment PAV H Infusion 800 [place] [address] 10/15/2024 2:00 PM EDT Appointment P[facility] H Infusion [address] [place] [address] 10/16/2024 2:00 PM EDT Appointment [facility] H Infusion 800 [place] [address] 10/18/2024 1:00 PM EDT Appointment [facility] 2 [address] [place] [address] 10/19/2024 1:00 PM EDT Appointment [facility]fusion [facility] 2 [address] [place] [address] 10/20/2024 3:30 PM EDT Appointment [facility] H Infusion [address] [place] [address] 10/21/2024 4:30 PM EDT Appointment [facility] 2 [address] [place] [address] documented as of this encounter Visit Diagnoses Not on filedocumented in this encounter Additional Health Concerns Assessment Noted Time A fall risk assessment has been complete d for the patient 07/30/2024 8:29 AM EDT A Body Mass Index follow-up plan has been documented for the patient 05/28/2024 1:52 PM EST documented as of this encounter Care Teams Engineering Surveyor Relationship Specialty Start Date End Date Jevon Vazquez MD [address] [place] [address] #1 #1 [place] [address] PCP - General 03/23/22 documented as of this encounter
--- OUTSIDE RECORDS SUMMARY | 2024-10-06 09:07 | XMS_ITS | Encounter Summary ---
Author Organization Healthcare Address [address] [place] [address] Care Team Providers Care Cash Posting Representative Name Role Phone Jevon Vazquez MD Primary Care Provider [phone] Encounter Details Date Type Department Care Team [...] Hematology/BMT and Cellular Therapy Program [address] [address] 10/14/2024 11:30 AM EDT Office Visit PAV CC Hematology/BMT and Cellular Therapy Program [address] [address] Zonia Hoffman, RODDY 800 [facility] [address] [place] [address] 10/14/2024 4:30 PM EDT Appointment P[facility] H Infusion 800 [place] [address] 10/15/2024 2:00 PM EDT Appointment P[facility] H Infusion 800 [place] [address] 10/16/2024 2:00 PM EDT Appointment [facility] H Infusion 800 [place] [address] 10/18/2024 1:00 PM EDT Appointment [facility] Infusion [facility] 2 744 [place] [address] 10/19/2024 1:00 PM EDT Appointment [facility]fusion [facility] 2 7[address] [place] [address] 10/20/2024 3:30 PM EDT Appointment [facility] H Infusion [address] [place] [address] 10/21/2024 4:30 PM EDT Appointment [facility] 2 [address] [place] [address] documented as of this encounter Visit Diagnoses Not on filedocumented in this encounter Additional Health Concerns Assessment Noted Time A fall risk assessment has been complete d for the patient 07/30/2024 8:29 AM EDT A Body Mass Index follow-up plan has been documented for the patient 05/28/2024 1:52 PM EST documented as of this encounter Care Teams Cash Posting Representative Relationship Specialty Start Date End Date Jevon Vazquez MD [address] [place] [address] #1 #1 [place] [address] PCP - General 03/23/22 documented as of this encounter
--- OUTSIDE RECORDS SUMMARY | 2024-10-06 09:07 | XMS_ITS | Encounter Summary ---
Author Organization Healthcare Address [address] [place] [address] Care Team Providers Care Software Deployment Engineer Name Role Phone Jevon Vazquez MD Primary Care Provider [phone] Encounter Details Date Type Department Care Team (Late Contact Info) Description 09/30/2024 Telephone PAV CC Hematology/BMT and Cellular Therapy Program [address] [place] [address] Zoraida Good, RN [facility] Social History Tobacco [...] Hematology/BMT and Cellular Therapy Program [address] [address] 10/14/2024 11:30 AM EDT Office Visit PAV CC Hematology/BMT and Cellular Therapy Program [address] [address] Zonia Hoffman, NURSING SPECIALIST 800 [facility] [address] [place] [address] 10/14/2024 4:30 PM EDT Appointment PAV H Infusion 800 [place] [address] 10/15/2024 2:00 PM EDT Appointment P[facility] H Infusion 800 [place] [address] 10/16/2024 2:00 PM EDT Appointment [facility] H Infusion [address] [place] [address] 10/18/2024 1:00 PM EDT Appointment [facility] 2 [address] [place] [address] 10/19/2024 1:00 PM EDT Appointment [facility] 2 [address] [place] [address] 10/20/2024 3:30 PM EDT Appointment [facility] H Infusion [address] [place] [address] 10/21/2024 4:30 PM EDT Appointment [facility] 2 [address] [place] [address] documented as of this encounter Visit Diagnoses Not on filedocumented in this encounter Additional Health Concerns Assessment Noted Time A fall risk assessment has been complete d for the patient 09/30/2024 9:33 AM EDT A Body Mass Index follow-up plan has been documented for the patient 05/28/2024 1:52 PM EST documented as of this encounter Care Teams Software Deployment Engineer Relationship Specialty Start Date End Date Jevon Vazquez MD [address] [place] [address] #1 #[address] [place] [address] PCP - General 03/23/22 documented as of this encounter
--- OUTSIDE RECORDS SUMMARY | 2024-10-06 09:07 | XMS_ITS | Encounter Summary ---
Author Organization Healthcare Address [address] [place] [address] Care Team Providers Care Land Agent Name Role Phone Jevon Vazquez MD Primary Care Provider [phone] Encounter Details Date Type Department Care Team [...] Hematology/BMT and Cellular Therapy Program [address] [address] 10/14/2024 11:30 AM EDT Office Visit PAV CC Hematology/BMT and Cellular Therapy Program [address] [address] Zonia Hoffman, RODDY 800 [facility] [address] [place] [address] 10/14/2024 4:30 PM EDT Appointment P[facility] H Infusion 800 [place] [address] 10/15/2024 2:00 PM EDT Appointment [facility] H Infusion 800 [place] [address] 10/16/2024 2:00 PM EDT Appointment [facility] H Infusion 800 [place] [address] 10/18/2024 1:00 PM EDT Appointment [facility] 2 [address] [place] [address] 10/19/2024 1:00 PM EDT Appointment [facility] 2 [address] [place] [address] 10/20/2024 3:30 PM EDT Appointment [facility] H Infusion 800 [place] [address] 10/21/2024 4:30 PM EDT Appointment [facility] 2 [address] [place] [address] documented as of this encounter Visit Diagnoses Not on filedocumented in this encounter Additional Health Concerns Assessment Noted Time A fall risk assessment has been complete d for the patient 07/30/2024 8:29 AM EDT A Body Mass Index follow-up plan has been documented for the patient 05/28/2024 1:52 PM EST documented as of this encounter Care Teams Land Agent Relationship Specialty Start Date End Date Jevon Vazquez MD [address] [place] [address] #1 #[address] [place] [address] PCP - General 03/23/22 documented as of this encounter
--- OUTSIDE RECORDS SUMMARY | 2024-10-06 09:07 | XMS_ITS | Encounter Summary ---
Author Organization [facility] Address [address] [place] [address] Care Team Providers Care Laborer Cook House Name Role Phone Jevon Vazquez MD Primary Care Provider [phone] Encounter Details Date Type Department Care Team ([facility] Contact Info) Description 09/19/2024 Telephone PAV CC Hematology/BMT and Cellular Therapy Program [address] [place] [address] Romana Richmond RN [facility] Social History Tobacco [...] Team ([facility] Contact Info) Description 10/14/2024 11:00 AM EDT Clinical Support PAV CC Hematology/BMT and Cellular Therapy Program [address] [place] [address] 10/14/2024 11:30 AM EDT Office Visit PAV CC Hematology/BMT and Cellular Therapy Program 750 [facility] [place] [address] Zonia Hoffman, HUMAN RESOURCE STATISTICIAN 800 [facility] [address] [place] [address] 10/14/2024 4:30 PM EDT Appointment P[facility] H Infusion 800 [place] [address] 10/15/2024 2:00 PM EDT Appointment [facility] H Infusion [address] [place] [address] 10/16/2024 2:00 PM EDT Appointment [facility] H Infusion [address] [place] [address] 10/18/2024 1:00 PM EDT Appointment [facility] 2 [address] [place] [address] 10/19/2024 1:00 PM EDT Appointment [facility] 2 [address] [place] [address] 10/20/2024 3:30 PM EDT Appointment [facility] Infusion [address] [place] [address] 10/21/2024 4:30 PM EDT Appointment [facility] 2 [address] [place] [address] documented as of this encounter Visit Diagnoses Not on filedocumented in this encounter Additional Health Concerns Assessment Noted Time A fall risk assessment has been complete d for the patient 09/19/2024 8:38 AM EDT A Body Mass Index follow-up plan has been documented for the patient 05/28/2024 1:52 PM EST documented as of this encounter Care Teams Laborer Cook House Relationship Specialty Start Date End Date Jevon Vazquez MD [address] [place] [address] #1 #1 [place] [address] PCP - General 03/23/22 documented as of this encounter
--- OUTSIDE RECORDS SUMMARY | 2024-10-06 09:07 | XMS_ITS | Encounter Summary ---
Author Organization Healthcare Address [address] [place] [address] Care Team Providers Care Certified Lactation Counselor Name Role Phone Jevon Vazquez MD [...] Hematology/BMT and Cellular Therapy Program [address] [phone] 10/14/2024 11:30 AM EDT Office Visit [facility] Hematology/BMT and Cellular Therapy Program [address] [phone] Zonia Hoffman, RODDY 800 [facility] [address] [place] [phone] 10/14/2024 4:30 PM EDT Appointment [facility] Infusion 800 [place] [address] 10/15/2024 2:00 PM EDT Appointment [facility] Infusion [address] [place] [address] 10/16/2024 2:00 PM EDT Appointment [facility] In[facility] [address] [place] [address] 10/18/2024 1:00 PM EDT Appointment [facility] 2 [address] [place] [address] 10/19/2024 1:00 PM EDT Appointment [facility] 2 [address] [place] [address] 10/20/2024 3:30 PM EDT Appointment [facility] Infusion 800 [place] [address] 10/21/2024 4:30 PM EDT Appointment [facility] 2 [address] [place] [address] documented as of this encounter Visit Diagnoses Not on filedocumented in this encounter Additional Health Concerns Assessment Noted Time A fall risk assessment has been complete d for the patient 09/19/2024 8:38 AM EDT A Body Mass Index follow-up plan has been documented for the patient 05/28/2024 1:52 PM EST documented as of this encounter Care Teams Certified Lactation Counselor Relationship Specialty Start Date End Date Jevon Vazquez MD [address] [place] [address] #1 #1 Jul[place] JOSEP [address] PCP - General 03/23/22 documented as of this encounter
--- OUTSIDE RECORDS SUMMARY | 2024-10-06 09:07 | XMS_ITS | Encounter Summary ---
Author Organization [facility] Address [address] [place] [address] Care Team Providers Care Classroom Teacher Name Role Phone Jevon Vazquez MD Primary Care Provider [phone] Encounter Details Date Type Department Care Team ([facility] Contact Info) Description 09/15/2024 Telephone PAV CC Hematology/BMT and Cellular Therapy Program [address] [phone] Zonia Hoffman, ANIMAL ATTENDANT 800 [facility] [address] [place] [phone] Social History Tobacco Use Types Packs/Day Years [...] Upcoming Encounters Date Type Department Care Team ([facility] Contact Info) Description 10/14/2024 11:00 AM EDT Clinical Support [facility] Hematology/BMT and Cellular Therapy Program [address] [place] [phone] 10/14/2024 11:30 AM EDT Office Visit [facility] CC Hematology/BMT and Cellular Therapy Program [address] [place] [phone] Zonia Hoffman, ANIMAL ATTENDANT 800 [facility] [address] [place] [address] 10/14/2024 4:30 PM EDT Appointment [facility] Infusion 800 [place] [address] 10/15/2024 2:00 PM EDT Appointment [facility] Infusion [address] [place] [address] 10/16/2024 2:00 PM EDT Appointment [facility] Infusion 800 [place] [address] 10/18/2024 1:00 PM EDT Appointment [facility] 2 [address] [place] [address] 10/19/2024 1:00 PM EDT Appointment [facility] 2 [address] [place] [address] 10/20/2024 3:30 PM EDT Appointment [facility]fusion [address] [place] [address] 10/21/2024 4:30 PM EDT Appointment [facility] 2 [address] [place] [address] documented as of this encounter Visit Diagnoses Not on filedocumented in this encounter Additional Health Concerns Assessment Noted Time A fall risk assessment has been complete d for the patient 07/30/2024 8:29 AM EDT A Body Mass Index follow-up plan has been documented for the patient 05/28/2024 1:52 PM EST documented as of this encounter Care Teams Classroom Teacher Relationship Specialty Start Date End Date Jevon Vazquez MD [address] [place] [address] #1 #1 [place] JOSEP [id number] PCP - General 03/23/22 documented as of this encounter
--- OUTSIDE RECORDS SUMMARY | 2024-10-06 09:07 | XMS_ITS | Encounter Summary ---
Author Organization Healthcare Address [address] [place] [address] Care Team Providers Care Vmware Systems Administrator Name Role Phone Jevon Vazquez MD Primary Care Provider [phone] Encounter Details Date Type Department Care Team ([facility] st Contact Info) Description 08/18/2024 Telephone P[facility] CC Hematology/BMT and Cellular Therapy Program [address] [phone] Romana Gorman, APPLE PICKING SUPERVISOR 800 [facility] [address] [place] [address] Social History Tobacco Use Types Packs/Day Years [...] to her levels being low Callback number: [phone] documented in this encounter Plan of Treatment Upcoming Encounters Date Type Department Care Team (Late st Contact Info) Description 10/14/2024 11:00 AM EDT Clinical Support PAV Hematology/BMT and Cellular Therapy Program [address] [phone] 10/14/2024 11:30 AM EDT Office Visit PAV Hematology/BMT and Cellular Therapy Program [address] [phone] Zonia Hoffman, APPLE PICKING SUPERVISOR 800 [facility] [address] [place] [phone] 10/14/2024 4:30 PM EDT Appointment [facility] Infusion 800 [place] [address] 10/15/2024 2:00 PM EDT Appointment [facility] Infusion [address] [place] [address] 10/16/2024 2:00 PM EDT Appointment [facility] Infusion [address] [place] [address] 10/18/2024 1:00 PM EDT Appointment [facility] 2 [address] [place] [address] 10/19/2024 1:00 PM EDT Appointment [facility] 2 [address] [place] [address] 10/20/2024 3:30 PM EDT Appointment [facility] Infusion [address] [place] [address] 10/21/2024 4:30 PM EDT Appointment [facility] 2 [address] [place] [address] documented as of this encounter Visit Diagnoses Not on filedocumented in this encounter Additional Health Concerns Assessment Noted Time A fall risk assessment has been complete d for the patient 07/30/2024 8:29 AM EDT A Body Mass Index follow-up plan has been documented for the patient 05/28/2024 1:52 PM EST documented as of this encounter Care Teams Vmware Systems Administrator Relationship Specialty Start Date End Date Jevon Vazquez MD [address] [place] [address] #1 #1 [place] [id number] PCP - General 03/23/22 documented as of this encounter
--- OUTSIDE RECORDS SUMMARY | 2024-10-06 09:08 | XMS_ITS | Encounter Summary ---
Author Organization Healthcare Address [address] [place] [address] Care Team Providers Care Paper Conservator Name Role Phone Jevon Vazquez MD Primary [...] Hematology/BMT and Cellular Therapy Program [address] [address] 10/14/2024 11:30 AM EDT Office Visit [facility] CC Hematology/BMT and Cellular Therapy Program [address] [phone] Zonia Hoffman, RODDY 800 [facility] [address] [place] [phone] 10/14/2024 4:30 PM EDT Appointment [facility] Infusion 800 [place] [address] 10/15/2024 2:00 PM EDT Appointment [facility] Infusion 800 [place] [address] 10/16/2024 2:00 PM EDT Appointment [facility]fusion 800 [place] [address] 10/18/2024 1:00 PM EDT Appointment [facility] 2 [address] [place] [address] 10/19/2024 1:00 PM EDT Appointment [facility] 2 [address] [place] [address] 10/20/2024 3:30 PM EDT Appointment [facility] Infusion 800 [place] [address] 10/21/2024 4:30 PM EDT Appointment [facility] 2 [address] [place] [address] documented as of this encounter Visit Diagnoses Not on filedocumented in this encounter Additional Health Concerns Assessment Noted Time A fall risk assessment has been complete d for the patient 09/19/2024 8:38 AM EDT A Body Mass Index follow-up plan has been documented for the patient 05/28/2024 1:52 PM EST documented as of this encounter Care Teams Paper Conservator Relationship Specialty Start Date End Date Jevon Vazquez MD [address] [place] [address] #1 #1 Jul[place] JOSEP [address] PCP - General 03/23/22 documented as of this encounter
--- OUTSIDE RECORDS SUMMARY | 2024-10-06 09:08 | XMS_ITS | Clinical Summary ---
Author Organization [facility] Address [address] [place] [address] Phone Care Team Providers Care Senior Tableau Developer Name Role Phone Jevon Vazquez MD Primary Care Provider [phone] Allergies Active Allergy Reactions Criticality Noted Date [...] L4-5 LAMINECTOMY; Surgeon: Ivan Bartholomew MD; Location: [facility]; Service: Spine Medical History [...] 5.6 % 11/14/2022 2:57 PM EDT [employer] Est. Avg Glucose 148 mg/dL 11/14/2022 2:57 PM EDT [employer], [facility] Blood VENOUS BLOOD / Unknown Venipuncture / Unknown 11/11/2022 3:46 PM EDT 11/11/2022 3:55 PM EDT Narrative [facility] [employer] [facility] - 11/14/2022 2:57 PM EDT REFERENCE RANGE: Normal: 4.0-5.6% Pre-diabetes: 5.7-6.4% Provisional diagnosis of diabetes: >6.4% Hgb F>10% and anything which shortens red cell survival, such as hemolytic anemia, or unstable hemoglobin variants such as HbSS, HbSC, or HbCC, will lower the HbA1c value associated with a given level of glycemic control. us Lexi Maloney DO CHEMISTRY ORDERABLES Final R esult [facility] [employer] [facility] [address] [facility] , [place] [address] * (ABNORMAL) BASIC METABOLIC PANEL (11/11/2022 3:46 PM EDT) Sodium 136 136 - 145 mmol/L 11/11/2022 4:11 PM EDT [facility] Potassium 3.8 3.5 - 5.0 mmol/L 11/11/2022 4:11 PM EDT [facility] Chloride 102 98 - 107 mmol/L 11/11/2022 4:11 PM EDT [facility] Total CO2 24 22 - 29 mmol/L 11/11/2022 4:11 PM EDT [facility] Anion Gap 10 7 - 16 mmol/L 11/11/2022 4:11 PM EDT [facility] Calcium 10.1 8.8 - 10.4 mg/dL 11/11/2022 4:11 PM EDT [facility] Glucose Lvl 147(H) 82 - 100 mg/dL 11/11/2022 4:11 PM EDT [facility] BUN 15 8 - 23 mg/dL 11/11/2022 4:11 PM EDT [facility] Creatinine 0.82 0.51 - 1.30 mg/dL 11/11/2022 4:11 PM EDT [facility] eGFR (CKD-EPIcr 2020) 76 >=60 mL/min/1.7 3 m2 11/11/2022 4:11 PM EDT [facility] Comment:Estimated GFR was ca lculated using the CKD-EPIcr (2020) equation refit without race. The equation is recommended by the National Kidney Foundation - [employer] [employer] of Nephrology Task Force. Blood VENOUS BLOOD / Unknown Venipuncture / Unknown 11/11/2022 3:46 PM EDT 11/11/2022 3:54 PM EDT us Leona Hanna DO CHEMISTRY ORDERABLES Final Res ult [facility] [address] [place] [address] * DX BONE DENSITY AXIAL SKELETON (07/25/2022 9:14 AM EDT) Anatomical Region Laterality Modality Dexa Scan 07/25/2022 Narrative 07/25/2022 3:45 PM EDT Indication: The patient is a female age 65 or older who requires a bone density assessment. Study was performed on Rentamus 5. Bone Density: Region BMD T-score Z-score [...] Most Recently Relevant to Health Maintenance [place] [address] [place] [address] MEDICARE SUPPLEMENT MEDICARE [place] PART A AND B Member Subscriber Plan / Payer (Ef fective 2016-Present) Name:Ashly Hernández Member ID:[id number] Relation to Subscriber:Self Name:Ashly Hernández Subscriber ID:[id number] Payer ID:Not on file Group ID:Not on file Type:Not on file Address: [address] MEDICARE SUPPLEMENT MEDICARE [place] PART A & [place] [id number] MEDICARE [place] PART A AND B Member Subscriber Plan / Payer (Ef fective 2016-Present) Name:Ashly Hernández Member ID:[id number] Relation to Subscriber:Self Name:Ashly Hernández Subscriber ID:[id number] Payer ID:Not on file Group ID:Not on file Type:Not on file Address: [address] MEDICARE SUPPLEMENT [employer] MEDICARE [place] PART A AND B [address] MEDICARE SUPPLEMENT Advance Directives For more information, please contact: [phone] * Full Code (Latest Code Status on File) Date Activated Date Inactivated Comments 11/14/2022 6:53 PM 11/16/2022 7:37 PM * Full Code Date Activated Date Inactivated Comments 11/12/2022 5:17 AM 11/14/2022 6:47 PM Care Teams Senior Tableau Developer Relationship Specialty Start Date End Date Jevon Vazquez MD [address] [place] [address] PCP - General Family Medicine 11/10/22
--- OUTSIDE RECORDS SUMMARY | 2024-10-06 09:08 | XMS_ITS | Encounter Summary ---
Author Organization Healthcare Address [address] [place] [address] Care Team Providers Care Cognos Developer Name Role Phone Jevon Vazquez MD Primary Care Provider [phone] Encounter Details Date Type Department Care Team [...] CC Hematology/BMT and Cellular Therapy Program [address] [address] 10/14/2024 11:30 AM EDT Office Visit [facility] CC Hematology/BMT and Cellular Therapy Program [address] [phone] Zonia Hoffman, RODDY 800 [facility] [address] [place] [address] 10/14/2024 4:30 PM EDT Appointment [facility] H Infusion 800 [place] [address] 10/15/2024 2:00 PM EDT Appointment [facility] Infusion 800 [place] [address] 10/16/2024 2:00 PM EDT Appointment [facility] Infusion 800 [place] [address] 10/18/2024 1:00 PM EDT Appointment [facility] 2 [address] [place] [address] 10/19/2024 1:00 PM EDT Appointment [facility] 2 [address] [place] [address] 10/20/2024 3:30 PM EDT Appointment [facility] Infusion 800 [place] [address] 10/21/2024 4:30 PM EDT Appointment [facility] 2 [address] [place] [address] documented as of this encounter Visit Diagnoses Not on filedocumented in this encounter Additional Health Concerns Assessment Noted Time A fall risk assessment has been complete d for the patient 09/19/2024 8:38 AM EDT A Body Mass Index follow-up plan has been documented for the patient 05/28/2024 1:52 PM EST documented as of this encounter Care Teams Cognos Developer Relationship Specialty Start Date End Date Jevon Vazquez MD [address] [place] [address] #1 #1 Julien JOSEP [address] PCP - General 03/23/22 documented as of this encounter
--- OUTSIDE RECORDS SUMMARY | 2024-10-06 09:08 | XMS_ITS | Encounter Summary ---
Author Organization Healthcare Address [address] [place] [address] Care Team Providers Care Inventory Management Specialist Name Role Phone Jevon Vazquez MD Primary Care Provider [phone] Encounter Details Date Type Department Care Team [...] Hematology/BMT and Cellular Therapy Program [address] [address] 10/14/2024 11:30 AM EDT Office Visit PAV CC Hematology/BMT and Cellular Therapy Program [address] [phone] Zonia Hoffman, RODDY 800 [facility] [address] [place] [address] 10/14/2024 4:30 PM EDT Appointment [facility] H Infusion 800 [place] [address] 10/15/2024 2:00 PM EDT Appointment [facility] Infusion [address] [place] [address] 10/16/2024 2:00 PM EDT Appointment [facility] Infusion [address] [place] [address] 10/18/2024 1:00 PM EDT Appointment [facility] 2 [address] [place] [address] 10/19/2024 1:00 PM EDT Appointment [facility] 2 [address] [place] [address] 10/20/2024 3:30 PM EDT Appointment [facility] Infusion [address] [place] [address] 10/21/2024 4:30 PM EDT Appointment [facility] 2 [address] [place] [address] documented as of this encounter Visit Diagnoses Not on filedocumented in this encounter Additional Health Concerns Assessment Noted Time A fall risk assessment has been complete d for the patient 09/19/2024 8:38 AM EDT A Body Mass Index follow-up plan has been documented for the patient 05/28/2024 1:52 PM EST documented as of this encounter Care Teams Inventory Management Specialist Relationship Specialty Start Date End Date Jevon Vazquez MD [address] [place] [address] #1 #1 Julien JOSEP [address] PCP - General 03/23/22 documented as of this encounter
--- OUTSIDE RECORDS SUMMARY | 2024-10-06 09:08 | XMS_ITS | Encounter Summary ---
Author Organization Healthcare Address [address] [place] [address] Care Team Providers Care Garage Hand Name Role Phone Jevon Vazquez MD Primary Care Provider [phone] Encounter Details Date Type Department Care Team [...] Hematology/BMT and Cellular Therapy Program [address] [address] 10/14/2024 11:30 AM EDT Office Visit PAV CC Hematology/BMT and Cellular Therapy Program [address] [phone] Zonia Hoffman, RODDY 800 [facility] [address] [place] [address] 10/14/2024 4:30 PM EDT Appointment [facility] H Infusion 800 [place] [address] 10/15/2024 2:00 PM EDT Appointment [facility] Infusion [address] [place] [address] 10/16/2024 2:00 PM EDT Appointment [facility] Infusion [address] [place] [address] 10/18/2024 1:00 PM EDT Appointment [facility] 2 [address] [place] [address] 10/19/2024 1:00 PM EDT Appointment [facility] 2 [address] [place] [address] 10/20/2024 3:30 PM EDT Appointment [facility] Infusion [address] [place] [address] 10/21/2024 4:30 PM EDT Appointment [facility] 2 [address] [place] [address] documented as of this encounter Visit Diagnoses Not on filedocumented in this encounter Additional Health Concerns Assessment Noted Time A fall risk assessment has been complete d for the patient 09/19/2024 8:38 AM EDT A Body Mass Index follow-up plan has been documented for the patient 05/28/2024 1:52 PM EST documented as of this encounter Care Teams Garage Hand Relationship Specialty Start Date End Date Jevon Vazquez MD [address] [place] [address] #1 #1 Julien JOSEP [address] PCP - General 03/23/22 documented as of this encounter
--- OUTSIDE RECORDS SUMMARY | 2024-10-06 09:08 | XMS_ITS | Encounter Summary ---
Author Organization Healthcare Address [address] [place] [address] Care Team Providers Care Residential Mortgage Manager Name Role Phone Jevon Vazquez MD Primary Care Provider [phone] Encounter Details Date Type Department Care Team ([facility] st Contact Info) Description 07/15/2024 Telephone PAV CC Hematology/BMT and Cellular Therapy Program [address] [phone] Zonia Hoffman, CLINICAL ACCOUNT SPECIALIST 800 [facility] [address] [place] [phone] Social History Tobacco Use Types Packs/Day Years [...] Reason for Call: Per PT call to [facility], fabiana Hoffman appt clarity, asking to have Jorge from clinical care team. Best contact number and optimal time of day to reach caller: [phone] Note: Please do not reply to this [...] Upcoming Encounters Date Type Department Care Team ([facility] st Contact Info) Description 10/14/2024 11:00 AM EDT Clinical Support P[facility] CC Hematology/BMT and Cellular Therapy Program [address] [place] [address] 10/14/2024 11:30 AM EDT Office Visit PAV Hematology/BMT and Cellular Therapy Program [address] [address] Zonia Hoffman, RODDY 800 [facility] [address] [place] [address] 10/14/2024 4:30 PM EDT Appointment [facility] Infusion 800 [place] [address] 10/15/2024 2:00 PM EDT Appointment [facility] Infusion 800 [place] [address] 10/16/2024 2:00 PM EDT Appointment [facility] Infusion 800 [place] [address] 10/18/2024 1:00 PM EDT Appointment [facility] 2 [address] [place] [address] 10/19/2024 1:00 PM EDT Appointment [facility] 2 [address] [place] [address] 10/20/2024 3:30 PM EDT Appointment [facility] [address] [place] [address] 10/21/2024 4:30 PM EDT Appointment [facility] 2 [address] [place] [address] documented as of this encounter Visit Diagnoses Not on filedocumented in this encounter Additional Health Concerns Assessment Noted Time A fall risk assessment has been complete d for the patient 06/18/2024 10:22 AM EST A Body Mass Index follow-up plan has been documented for the patient 05/28/2024 1:52 PM EST documented as of this encounter Care Teams Residential Mortgage Manager Relationship Specialty Start Date End Date Jevon Vazquez MD [address] [place] [address] #1 #1 [place] [address] PCP - General 03/23/22 documented as of this encounter
[2024-10-06 09:31] LABS: Alanine Aminotransferase 13 U/L (12-78); Albumin Level 3.6 g/dl (3.5-5.0); Albumin/Globulin Ratio 1.5 (1.1-1.8); Alkaline Phosphatase 40 U/L (38-126); Anion Gap 5.9 mEq/L (5-15); Aspartate Amino Transferase 34 U/L (14-36); Basophils % 0.5 % (0.1-2.0); Bilirubin,Total 0.4 mg/dl (0.2-1.3); Blood Urea Nitrogen 24 mg/dl (7-17); Carbon Dioxide 25 mmol/L (22.0-30.0); Chloride 108 mmol/L (98-107); Creatinine Clearance Estimated 46 mL/min (50-200); Eosinophils % 1.4 % (0.1-12.0); Estimated Glomerular Filt Rate 61 ml/min (>60); GFR (African American) 74 ML/MIN (>60); Globulin 2.4 g/dL (1.3-3.2); Glucose 145 mg/dl (74-100); Hematocrit 26.8 % (37.0-47.0); Hemoglobin 9.2 g/dL (12.2-16.2); Immature Granulocytes # 0 10^3uL; Immature Granulocytes % 0 %; Lymphocytes # 0.9 K/mm3 (0.7-4.5); Lymphocytes % 43.1 % (10-50); Mean Corpuscular HGB Conc 34.3 g/dL (31.8-35.4); Mean Corpuscular Hemoglobin 37.4 pg (27.0-31.2); Mean Corpuscular Volume 108.9 fl (81-99); Mean Platelet Volume 9.2 fl (7.4-10.4); Monocytes # 0.2 K/mm3 (0.1-1.0); Monocytes % 8.3 % (1.7-9.3); Neutrophils % 46.7 % (37.0-80.0); Nucleated Red Blood Cells # 0 10^3/uL; Nucleated Red Blood Cells % 0 %; Potassium 3.9 mmoL/L (3.5-5.1); Red Blood Count 2.46 M/mm3 (4.20-5.40); Red Cell Distribution Width 20.7 % (11.5-17.5); Red Cell Distribution Width-SD 78.4 fL; Sodium 135 mmol/L (136-145); White Blood Count 2.2 K/mm3 (4.8-10.8)
[2024-10-06 09:39] LABS: Platelet Count 13 K/mm3 (142-424)
[2024-10-06] MEDS: SODIUM CHLORIDE 0.9% 10ML FLUSH SYRINGE 10 ML IV (09:45)
== END 2024-10-06 09:45 | disposition home or self-care (01) ==
LOC: INF 08:56
PROVIDERS: PCP Family Medicine; Visit Provider Internal Medicine Medical Oncology
DX: C92.00 Acute myeloblastic leukemia, not having achieved remission (principal)
CPT/HCPCS: 36591; 80053; 85025; J1642

== ENCOUNTER 2024-10-08 08:53 | Outpatient (RCR) | payer MEDICARE, BC, SELFPAY ==
[2024-10-08 08:56] VITALS: BMI 21.8
[2024-10-08] MEDS: SODIUM CHLORIDE 0.9% 10ML FLUSH SYRINGE 10 ML IV (09:05)
[2024-10-08 09:22] LABS: Chloride 104 mmol/L (98-107)
[2024-10-08 09:23] LABS: Albumin Level 3.6 g/dl (3.5-5.0); Potassium 4.1 mmoL/L (3.5-5.1); Sodium 138 mmol/L (136-145)
[2024-10-08 09:25] LABS: Alanine Aminotransferase 14 U/L (12-78); Albumin/Globulin Ratio 1.6 (1.1-1.8); Alkaline Phosphatase 41 U/L (38-126); Anion Gap 12.1 mEq/L (5-15); Aspartate Amino Transferase 37 U/L (14-36); Bilirubin,Total 0.3 mg/dl (0.2-1.3); Blood Urea Nitrogen 26 mg/dl (7-17); Carbon Dioxide 26 mmol/L (22.0-30.0); Creatinine Clearance Estimated 46 mL/min (50-200); Estimated Glomerular Filt Rate 61 ml/min (>60); GFR (African American) 74 ML/MIN (>60); Globulin 2.3 g/dL (1.3-3.2); Total Protein,Serum 5.9 g/dl (6.3-8.2)
[2024-10-08 09:26] LABS: Calcium 9.3 mg/dl (8.4-10.2); Glucose 129 mg/dl (74-100)
[2024-10-08 09:28] LABS: Basophils % 0.5 % (0.1-2.0); Eosinophils % 1.9 % (0.1-12.0); Hematocrit 25.2 % (37.0-47.0); Hemoglobin 8.6 g/dL (12.2-16.2); Immature Granulocytes # 0 10^3uL; Immature Granulocytes % 0 %; Lymphocytes # 0.9 K/mm3 (0.7-4.5); Lymphocytes % 43.5 % (10-50); Mean Corpuscular HGB Conc 34.1 g/dL (31.8-35.4); Mean Corpuscular Hemoglobin 37.6 pg (27.0-31.2); Monocytes # 0.2 K/mm3 (0.1-1.0); Monocytes % 8.6 % (1.7-9.3); Neutrophils % 45.5 % (37.0-80.0); Nucleated Red Blood Cells # 0 10^3/uL; Nucleated Red Blood Cells % 0 %; Red Blood Count 2.29 M/mm3 (4.20-5.40); Red Cell Distribution Width 19.9 % (11.5-17.5); Red Cell Distribution Width-SD 77.8 fL; White Blood Count 2.1 K/mm3 (4.8-10.8)
[2024-10-08 09:31] LABS: Platelet Count 13 K/mm3 (142-424)
== END 2024-10-08 09:37 | disposition home or self-care (01) ==
LOC: INF 08:53
PROVIDERS: PCP Family Medicine; Visit Provider Internal Medicine Medical Oncology
DX: C92.00 Acute myeloblastic leukemia, not having achieved remission (principal)
CPT/HCPCS: 36591; 80053; 85025; J1642

== ENCOUNTER 2024-10-10 09:02 | Outpatient (CLI) | payer MEDICARE, BC, SELFPAY ==
--- OUTSIDE RECORDS SUMMARY | 2024-09-19 07:30 | XMS_ITS | Encounter Summary ---
Author Organization [facility] Address [address] [place] [address] Care Team Providers Care Lap Checker Name Role Phone Jevon Vazquez MD Primary Care Provider [phone] Reason for Visit * Reason Comments Nurse Visit Encounter Details Date Type Department Care Team ([facility] Contact Info) Description 09/19/2024 7:30 AM EDT Clinical Support [facility] Hematology/BMT and Cellular Therapy Program [address] [phone] Social History Tobacco Use Types Packs/Day Years [...] Upcoming Encounters Date Type Department Care Team ([facility] Contact Info) Description 10/14/2024 11:00 AM EDT Clinical Support [facility] Hematology/BMT and Cellular Therapy Program [address] [phone] 10/14/2024 11:30 AM EDT Office Visit [facility] Hematology/BMT and Cellular Therapy Program [address] [phone] Zonia Hoffman, MANAGER PURCHASING 800 [facility] [address] [place] [phone] 10/14/2024 4:30 PM EDT Appointment [facility] In[facility] [address] [place] [address] 10/15/2024 2:00 PM EDT Appointment [facility] [address] [place] [address] 10/16/2024 2:00 PM EDT Appointment [facility] [address] [place] [address] 10/18/2024 1:00 PM EDT Appointment [facility] 2 [address] [place] [address] 10/19/2024 1:00 PM EDT Appointment [facility] 2 [address] [place] [address] 10/20/2024 3:30 PM EDT Appointment [facility] [address] [place] [address] 10/21/2024 4:30 PM EDT Appointment [facility] 2 [address] [place] [address] documented as of this encounter Visit Diagnoses Not on filedocumented in this encounter Additional Health Concerns Assessment Noted Time A fall risk assessment has been complete d for the patient 09/19/2024 8:38 AM EDT A Body Mass Index follow-up plan has been documented for the patient 05/28/2024 1:52 PM EST documented as of this encounter Care Teams Lap Checker Relationship Specialty Start Date End Date Jevon Vazquez MD [address] [place] [address] #1 [address]1 [place] [address] PCP - General 03/23/22 documented as of this encounter
--- OUTSIDE RECORDS SUMMARY | 2024-09-19 09:30 | XMS_ITS | Encounter Summary ---
Author Organization Healthcare Address [address] [place] [address] Care Team Providers Care Information Technology Officer Name Role Phone Jevon Vazquez MD Primary Care Provider [phone] Reason for Visit * Reason Comments Follow-up Encounter Details Date Type Department Care Team (Latest Contact Info) Description 09/19/2024 9:30 AM EDT Clinical Support [facility] [address] [place] [address] Acute myeloid leukemia not having achieved remission [...] Encounters Date Type Department Care Team ([facility] st Contact Info) Description 10/14/2024 11:00 AM EDT Clinical Support [facility]BMT [facility] Cellular Therapy Program [address] [place] [address] 10/14/2024 11:30 AM EDT Office Visit [facility] Cellular Therapy [facility] [address] [place] [address] Zonia Hoffman, HEAD GIRLS GOLF COACH 800 [facility] [address] [place] [address] 10/14/2024 4:30 PM EDT Appointment [facility] [address] [place] [address] 10/15/2024 2:00 PM EDT Appointment [facility] [address] [place] [address] 10/16/2024 2:00 PM EDT Appointment [facility] [address] [place] [address] 10/18/2024 1:00 PM EDT Appointment [facility] 2 [address] [place] [address] 10/19/2024 1:00 PM EDT Appointment [facility] 2 [address] [place] [address] 10/20/2024 3:30 PM EDT Appointment [facility] [address] [place] [address] 10/21/2024 4:30 PM EDT Appointment [facility] Infusion Clinic 2 [address] [place] [address] documented as of this encounter Procedures Procedure Name Priority Date/Time Associated Diagnosis Comments PLATELET COUNT, BLOOD STAT 09/19/2024 10:04 AM EDT PREPARE PLATELETS Routine 09/19/2024 9:0 8 AM EDT documented in this encounter Results * (ABNORMAL) Platelet count (09/19/2024 10:04 AM EDT) Platelet Count 61(L) 155 - 369 10*3/uL LAB HEMATOLOGY METHOD 09/19/2024 10:19 AM EDT [facility] Blood Blood sample taken from central line / Unknown (Port) Long-term Catheter / Unknown 09/19/2024 10:04 AM EDT 09/19/2024 10:18 AM EDT us New Mckinney MD LAB BLOOD ORDERABLES Final Re sult [facility] [address] [place] [address] * Transfuse platelets, Irradiated (09/19/2024 10:02 AM EDT) us Lexi Ferraro APRN BLOOD TRANSFUSION ORDERABL ES Final Result * Prepare Leukocyte Reduced Platelets (09/19/2024 9:08 AM EDT) Product Code [id number] CH BLOO D BANK Dispense Status Transfused BLOOD BANK Blood Expiration Date [id number] BLOOD BANK Unit Number [id number] CH B LOOD BANK Product Blood Type 6200 BLOOD BANK Blood Type A+ CH BLOOD BANK us Provider Not In System BLOOD BANK PRODUCT ORD ERABLES Final Result BLOOD BANK [address] documented in this encounter Visit Diagnoses [...] documented as of this encounter Care Teams Information Technology Officer Relationship Specialty Start Date End Date Jevon Vazquez MD [address] [place] [address] #1 [address]1 [place] [id number] PCP - General 03/23/22 documented as of this encounter
--- OUTSIDE RECORDS SUMMARY | 2024-09-19 12:00 | XMS_ITS | Encounter Summary ---
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 Cancer [address] [address] Phone: tel: fax: Referral ID Status Reason Start Date Expiration Date V isits Requested Visits Authorized [id number] Authorized 09/11/2024 03/13/2026 1 1 Encounter Details Date Type Department Care Team (Latest Contact Info) Description 09/19/2024 12:00 PM EDT Procedure Visit [facility] Hematology/BMT and Cellular Therapy Program [address] [address] Lexi Ferraro, RODDY 800 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) Social History Tobacco Use Types Packs/Day Years [...] Sign Reading Time Taken Comments Blood Pressure 120/67 09/19/2024 8:03 AM EDT Pulse 81 09/19/2024 8:03 AM EDT Temperature 36.6 C (97.8 F) 09/19/2024 8:03 AM EDT Respiratory Rate 16 09/19/2024 8:03 AM EDT Oxygen Saturation 100% 09/19/2024 8:03 AM EDT Inhaled Oxygen Concentration - - Weight 55.7 kg (122 lb 12.7 oz) 09/19/2024 8:03 AM EDT Height 162.6 cm (5' 4.02 ) 09/19/2024 8:03 AM ED T Body Mass Index 21.07 09/19/2024 8:03 AM EDT documented in this encounter Miscellaneous Notes * Progress Notes - Lexi Ferraro APRN - 09/19/2024 12:00 PM EDTAssociated Order(s): Biopsy bone marrow Post-Procedure Diagnose(s): 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 Date: 09/19/24 Encounter Diagnosis Name Primary? 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 Alternatives discussed: Delayed treatment [facility] protocol: Procedure explained and questions answered to patient or proxy's satisfaction: yes Relevant documents present and verified: yes Test results available: yes Required blood products, implants, devices, and special equipment available: yes Site/side marked: yes Immediately prior to procedure, a time out was called: yes Patient identity confirmed: Verbally with patient and arm band Indications: Indications: Evaluation of disease Pre-procedure details: Skin preparation: Povidone-iodine Preparation: Patient was prepped and draped in the usual sterile fashion Sedation: Sedation type: None Anesthesia: Anesthesia method: Local infiltration Local anesthetic: Lidocaine 1% w/o epi Procedure specific details: The patient was placed in the prone position. The right posterior iliac crest was identified and the site was marked. The area was sterile prepped and draped. Local anesthetic was injected superficially at the marked site, then into deeper tissues, including periosteally. A small incision was made at the site and an 11 gauge Jamshidi needle was inserted into the right posterior iliac crest. Bone m arrow aspirate and core biopsy were obtained from a single anchor. A second anchor was performed toobtain additional core biopsy. The instrument was then removed and pressure was held at the site. The area was cleaned and a dry sterile pressure dressing was applied. The patient was placed in the supine recumbent position. Post-procedure details: Procedure completion: Tolerated well, no immediate complications documented in this encounter Plan of Treatment Upcoming Encounters Date Type Department Care Team ([facility] st Contact Info) Description 10/14/2024 11:00 AM EDT Clinical Support [facility] Hematology/BMT and Cellular Therapy Program [address] [phone] 10/14/2024 11:30 AM EDT Office Visit [facility] Hematology/BMT and Cellular Therapy Program [address] [place] [phone] Zonia Hoffman APRN 800 [facility] [address] [place] [phone] 10/14/2024 4:30 PM EDT Appointment [facility] [address] [place] [address] 10/15/2024 2:00 PM EDT Appointment [facility] [address] [place] [address] 10/16/2024 2:00 PM EDT Appointment [facility] [address] [place] [address] 10/18/2024 1:00 PM EDT Appointment [facility] [address] [place] [address] 10/19/2024 1:00 PM EDT Appointment [facility] [address] [place] [address] 10/20/2024 3:30 PM EDT Appointment [facility] [address] [place] [address] 10/21/2024 4:30 PM EDT Appointment [facility] [address] [place] [address] documented as of this encounter Procedures Procedure Name Priority Date/Time Associated Diagnosis Comments BIOPSY BONE MARROW Routine 09/19/2024 12 :00 PM EDT 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) MYELOID FOCUSED PANEL, 50 GENE Routine 09/19/2024 7:29 AM EDT 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) CYTOGENETICS TESTING, ONCOLOGY Routine 09/19/2024 7:29 AM EDT 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) CHROMOSOME KARYOTYPE, ONCOLOGY Routine 09/19/2024 7:29 AM EDT 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) LEUKEMIA/LYMPHOMA - IMMUNOPHENOTYPING BY FLOW CYTOMETRY Routine 09/19/2024 7:29 AM EDT 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) CBC WITH AUTO DIFFERENTIAL Routine 09/19/2024 7:29 AM EDT 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) BONE MARROW EXAM Routine 09/19/2024 7:29 AM EDT 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 Alternatives discussed: Delayed treatment [facility] protocol: Procedure explained and questions answered to patient or proxy's satisfaction: yes Relevant documents present and verified: yes Test results available: yes Required blood products, implants, devices, and special equipment available: yes Site/side marked: yes Immediately prior to procedure, a time out was called: yes Patient identity confirmed: Verbally with patient and arm band Indications: Indications: Evaluation of disease Pre-procedure details: Skin preparation: Povidone-iodine Preparation: Patient was prepped and draped in the usual sterile fashion Sedation: Sedation type: None Anesthesia: Anesthesia method: Local infiltration Local anesthetic: Lidocaine 1% w/o epi Procedure specific details: The patient was placed in the prone position. The right posterior iliac crest was identified and the site was marked. The area was sterile prepped and draped. Local anesthetic was injected superficially at the marked site, then into deeper tissues, including periosteally. A small incision was made at the site and an 11 gauge Jamshidi needle was inserted into the right posterior iliac crest. Bone marrow aspirate and core biopsy were obtained from a single anchor. A second anchor was performed to obtain additional core biopsy. The instrument was then removed and pressure was held at the site. The area was cleaned and a dry sterile pressure dressing was applied. The patient was placed in the supine recumbent position. Post-procedure details: Procedure completion: Tolerated well, no immediate complications Lexi Ferraro APRN IN CLINIC/BEDSIDE ORDERABL ES Final Result * Chromosome Karyotype, Oncology (09/19/2024 7:29 AM EDT) Specimen Type Bone Marrow 09/24/2024 2:37 PM EDT [facility] Clinical Indication Myelodysplastic Syndrome 09/24/2024 2:37 PM EDT [facility] Specimen Adequacy Adequate 025 2:37 PM EDT [facility] Chromosome Analysis Result Giemsa-banded metaphase cells from unstimulated bone marrow cultures showed a 46,XX[20] chromosome pattern. 09/24/2024 2:37 PM EDT [facility] Interpretation Normal female chromosome analysis. No clonal abnormalities were detected at current resolution. Clinical correlation is recommended. # cells counted = 20 # cells analyzed = 20 # cells karyotyped = 2 Band resolution: 450-525 09/24/2024 2:37 PM EDT [facility] Pathologist Signature Reviewed by: Corey Tejada 09/24/2024 2:37 PM EDT [facility] Bone Marrow Non-blood Collection / Unknown 09/19/2024 7:29 AM EDT 09/19/2024 12:35 PM EDT us New Mckinney MD LAB CYTOGENETICS ORDERABLES F inal Result [facility] [address] [place] [address] * Myeloid Focused Panel, 50 gene (09/19/2024 7:29 AM EDT) Interpretation The following two (2) genes, TP53 and DNMT3A, with persistent variants have been detected in this bone marrow specimen. The variant, p.[id number], in TP53 gene and the variant, p.[id number], in the RUNX 1 gene are not detectable at current cutoff and coverage established in this lab. Gene: TP53 Mutation: c.814G>A; p.[id number] Allele Frequency (%): 37% (45% Dec 2023) ID: [id number] Gene: DNMT3A Mutation: c.1522delC; p.[id number] 3 Allele Frequency (%): 36% (48% Dec 2023) Additional Details on Mutation Identified: Gene Transcript Genome Chrom Coordinate RefVar DNMT3A [id number] Hg19 2 [id number] delC TP53 [id number] Hg19 17 [id number] G>A 09/29/2024 4:05 PM EDT [facility] Methodology The following 50 genes were tested on this panel and with the exception of the genes listed above; no clinically significant mutations were detected. Genes Analyzed: ABL1 ASXL1 ANDREY BCOR BCORL1 BRAF CALR CBL CDKN2A CEBPA CSF3R CUX1 DNMT3A ETV6 EZH2 FBXW7 FLT3 GATA1 GATA2 IDH1 IDH2 IKZF1 JAK2 JAK3 KDM6A KIT KMT2A KRAS MPL NF1 NOTCH1 NPM1 NRAS PHF6 PTEN PTPN11 RAD21 RUNX1 SETBP1 SF3B1 SH2B3 SMC1A SMC3 SRSF2 STAG2 TET2 TP53 U2AF1 WT1 ZRSR2 DNA is isolated, fragmented, and adapter ligated to create sequencing libraries. Libraries are then hybridized with custom-designed RNA probes to enrich for regions associated with hematologic malignancies. Samples are then sequenced on the Illumina NextSeq 2000 ([employer], [place]). A custom bioinformatics pipeline aligns the data to human reference genome GRCh37 to determine variants. The limit of detection (related in part to depth of coverage, neoplastic cell percentage, and allelic frequency for the mutation) was determined to be 5% allele frequency, at which our assay has sensitivity of 98% and 91%, respectively, to detect single nucleotide variants (SNVs) and insertions/deletio ns (indels). Mutant allele populations below this detection limit will not be reliably detected by this method. Pseudogenes, highly homologous regions, and repeat regions may interfere with the detection of variants in this assay. This assay targets genes involved in hematologic malignancies. Some of the genes targeted may also cause inherited genetic disorders, variants in these genes will not be reported unless they are determined to contribute to the diagnosis, prognosis, or treatment of hematologic malignancies. 09/29/2024 4:05 PM T [facility] Disclaimer This test was developed and its performance characteristics determined by the Clinical Molecular and Genomic Pathology Laboratory at the [facility]. It has not been cleared or approved by the U.S. Food and Drug Administration. This test does not require FDA approval. This test is used for clinical purposes. It should not be regarded as investigational or for research. This laboratory is certified under the Clinical laboratory Improvement Amendments of 1988 (CLIA-88) as qualified to perform high complexity clinical laboratory testing. 09/29/2024 4:05 PM EDT [facility] Pathologist Signature Reviewed by: Corey Tejada 09/29/2024 4:05 PM [facility] Bone Marrow Specimen from bone marrow obtained by aspiration / Unknown Non-blood Collection / Unknown 09/19/2024 7:29 AM EDT 09/19/2024 12:03 PM EDT us New Mckinney MD LAB MOLECULAR DIAGNOSTICS ORD ERABLES Final Result [facility] [address] [place] [address], * Leukemia/Lymphoma - Immunophenotyping by Flow Cytometry (09/19/2024 7:29 AM EDT) Clinical Indication AML 09/22/2024 10:29 AM EDT [facility] Flow Cytometry Interpretation A. BONE MARROW FOR FLOW CYTOMETRY: - MIXED MARROW ELEMENTS WITH NO EVIDENCE OF INCREASED BLASTS OR ABNORMAL LYMPHOID POPULATIONS, SEE COMMENT. 09/22/2024 10:29 AM EDT [facility] Comments CD45/side scatter analysis shows a pattern typical of bone marrow. By immunophenotypic analysis, mature B-cells are virtually absent. Minute populations of hematogones and plasma cells are present. T-cells comprise 11% of events and show a normal phenotype with a CD4 to CD8 ratio of 3.1:1. Also present are a small population of NK cells, 3-4% monocytes, about 3% eosinophils, and a large population of maturing granulocytes. Myeloblasts are less than 0.5% of total events. The findings provide no immunophenotypic evidence of hematolymphoid malignancy. Final interpretation requires clinical and morphologic correlation. CD45, CD2, CD3, CD4, CD5, CD7, CD8, CD10, CD13, CD14, CD15, CD16, CD19, CD20, CD33, CD34, CD38, CD56, CD117, HLA-DR, kappa surface light chains, lambda surface light chains 09/22/2024 10:29 AM EDT [facility] Disclaimer This test was developed and its performance characteristics determined by the Immuno-Molecular Pathology Laboratory at the [facility]. It has not been cleared or approved by the U.S. Food and Drug Administration. This test, which utilizes analyte specific reagents, does not require FDA approval. This test is used for clinical purposes. It should not be regarded as investigational or for research. This laboratory is certified under the Clinical Laboratory Improvement Amendments of 1988 (CLIA-88) as qualified to perform high complexity clinical laboratory testing. This service has been rendered in part by a resident. A pathologist has personally reviewed the test results and has rendered and is responsible for the diagnosis that appears on the report. 09/22/2024 10:29 AM EDT [facility] Pathologist Signature Reviewed by: Lisandra Epstein MD 09/22/2024 10:29 AM EDT [facility] MRD Indicated Test Not Indicated 12/2024 10:29 AM EDT [facility] Bone Marrow Specimen from bone marrow obtained by aspiration / Unknown Non-blood Collection / Unknown 09/19/2024 7:29 AM EDT 09/19/2024 12:13 PM EDT us New Mckinney MD LAB FLOW CYTOMETRY ORDERABLES Final Result [facility] [address] [place] [address] * (ABNORMAL) CBC and differential (09/19/2024 7:29 AM EDT) WBC Count 2.70(L) 3.70 - 10.30 10*3/uL LAB HEMATOLOGY METHOD 09/19/2024 9:[address] [facility] RBC Count 1.86(L) 3.90 - 5.20 10*6/uL LAB HEMATOLOGY METHOD 09/19/2024 9:[address] [facility] HGB 7.1(L) 11.2 - 15.7 g/dL LAB HEMATOLOGY METHOD 09/19/2024 9:[address] [facility] HCT 21.5(L) 34.0 - 45.0 % LAB HEMATOLOGY METHOD 09/19/2024 9:[address] [facility] Platelet Count 14(LL) 155 - 369 10*3/uL LAB HEMATOLOGY METHOD 09/19/2024 9:[address] [facility] MCV 116(H) 79 - 98 fL LAB HEMATOLOGY METHOD 09/19/2024 9:[address] [facility] MCH 38.2(H) 26.0 - 32.0 pg LAB HEMATOLOGY METHOD 09/19/2024 9:[address] [facility] MCHC 33.0 30.7 - 35.5 g/dL LAB HEMATOLOGY METHOD 09/19/2024 9:[address] [facility] RDW 21.8(H) 11.5 - 14.5 % LAB HEMATOLOGY METHOD 09/19/2024 9:[address] [facility] MPV 13.5(H) 8.8 - 12.5 fL LAB HEMATOLOGY METHOD 09/19/2024 9:[address] [facility] nRBC 0.0 <=0.0 per 100 WBCs LAB HEMATOLOGY METHOD 09/19/2024 9:[address] [facility] Differential Type Automated LAB HEMATOLOGY METHOD 09/19/2024 9:[address] [facility] Neutrophils % 51 % LAB HEMATOLOGY METHOD 09/19/2024 9:[address] [facility] Lymphocytes % 41 % LAB HEMATOLOGY METHOD 09/19/2024 9:[address] [facility] Monocytes % 7 % LAB HEMATOLOGY METHOD 09/19/2024 9:[address] [facility] Eosinophils % 1 % LAB HEMATOLOGY METHOD 09/19/2024 9:[address] [facility] Basophils % 0 % LAB HEMATOLOGY METHOD 09/19/2024 9:[address] [facility] Immature Granulocytes % 0 % LAB HEMATOLOGY METHOD 09/19/2024 9:[address] [facility] Neutrophils Absolute 1.35(L) 1.60 - 6.10 10*3/uL LAB HEMATOLOGY METHOD 09/19/2024 9:[address] [facility] Lymphocytes Absolute 1.10(L) 1.20 - 3.90 10*3/uL LAB HEMATOLOGY METHOD 09/19/2024 9:[address] [facility] Monocytes Absolute 0.20(L) 0.30 - 0.90 10*3/uL LAB HEMATOLOGY METHOD 09/19/2024 9:[address] [facility] Eosinophils Absolute 0.03 0.00 - 0.50 10*3/uL LAB HEMATOLOGY METHOD 09/19/2024 9:[address] [facility] Basophils Absolute 0.01 0.00 - 0.10 10*3/uL LAB HEMATOLOGY METHOD 09/19/2024 9:[address] [facility] Immature Granulocytes Absolute 0.01 0.00 - 0.06 10*3/uL LAB HEMATOLOGY METHOD 09/19/2024 9:[address] [facility] Blood Blood sample taken from central line / Unknown (Port) Long-term Catheter / Unknown 09/19/2024 7:29 AM EDT 09/19/2024 8:[address] [facility] - 09/19/2024 9:13 AM EDT Therapeutic decision making should be based on absolute values, rather than percentages. us New Mckinney MD LAB BLOOD ORDERABLES Final Re sult [facility] [address] [place] [address] * Bone marrow exam (09/19/2024 7:29 AM EDT) Case Report Bone Marrow Case: [id number] Authorizing Provider: New Mckinney MD Collected: 09/19/2024 0729 Ordering Location: [facility] Hematology/BMT and Received: 09/19/2024 1216 Cellular Therapy Program Pathologist: Lisandra Epstein MD Specimens: A) - Bone Marrow Aspirate, right B) - Bone Marrow Biopsy, right C) - Peripheral Blood for Bone Marrow 3:15 PM EDT [facility] Cytogenetics Report, Addendum Chromosome Analysis Result Giemsa-banded metaphase cells from unstimulated bone marrow cultures showed a 46,XX[20] chromosome pattern. Interpretation Normal female chromosome analysis. No clonal abnormalities were detected at current resolution. Clinical correlation is recommended. 3:15 PM EDT [facility] Addendum electronically signed by Lisandra Epstein MD on 09/24/2024 at 1630 EDT Addendum Interpretation The following two (2) genes, TP53 and DNMT3A, with persistent variants have been detected in this bone marrow specimen. The variant, p.[id number], in TP53 gene and the variant, p.Ayc595slq, in the RUNX 1 gene are not detectable at current cutoff and coverage established in this lab. Gene: TP53 Mutation: c.814G>A; p.[id number] Allele Frequency (%): 37% (45% Dec 2023) ID: [id number] Gene: DNMT3A Mutation: c.1522delC; p.[id number] 43 Allele Frequency (%): 36% (48% Dec 2023) Additional Details on Mutation Identified: 3:15 PM EDT [facility] Addendum electronically signed by Lisandra Epstein MD on 09/30/2024 at 1515 EDT Final Diagnosis PERIPHERAL BLOOD AND BONE MARROW, RIGHT POSTERIOR ILIAC CREST, (ASPIRATE SMEAR, AND CORE BIOPSY): - HYPOCELLULAR BONE MARROW WITH MARKEDLY DECREASED MEGAKARYOCYTES; NO SIGNIFICANT DYSPOIESIS OR INCREASE IN BLASTS. 3:15 PM EDT [facility] at 1453 EDT Clinical Information AML 09/14 3:15 PM EDT [facility] CBC and Differential PERIPHERAL BLOOD: 09/19/2024: WBC Count 2.70 (Ref range: 3.70 - 10.30 10*3/uL); HGB 7.1 (Ref range: 11.2 - 15.7 g/dL); HCT 21.5 (Ref range: 34.0 - 45.0 %); Platelet Count 61 (Ref range: 155 - 369 10*3/uL); MCV 116 (Ref range: 79 - 98 fL) DIFFERENTIAL:2024: Neutrophils % 51; Lymphocytes % 41; Monocytes % 7; Basophils % 0; Eosinophils % 1; Immature Granulocytes % 0 Peripheral smear shows moderate leukopenia with absolute neutropenia. Occasional neutrophils are hypersegmented. Macrocytic anemia with anisocytosis,occa sional dacryocytes and polychromasia. Moderate to severe thrombocytopenia. Circulating blasts are not seen. 3:15 PM EDT [facility] Bone Marrow Differential BONE MARROW DIFFERENTIAL: 200 cells Normal Patient Neutrophils 15-50 34 Metamyelocytes 4-19 3 Myelocytes 1-18 10 Promyelocytes 1-8 1 Blasts 0-2 1 Monocytes 0-5 4 Erythroid 16-38 22 Lymphocytes 3-24 13 Eosinophils 0-6 8 Basophils 0-2 0 Plasma cells 0-4 4 Other 3:15 PM EDT [facility] Bone Marrow Aspirate and Biopsy The bone marrow cellularity is 5% on biopsy, but appears higher on aspirate. Megakaryocytes are present in markedly decreased numbers. Megakaryocyte morphology is predominantly normal. The myeloid-erythroid ratio is 2.7 (normal 1.5-4.0). Erythropoiesis is progressive with some nuclear to cytoplasmic dyssynchrony without significant membrane irregularities. Granulopoiesis is progressive with predominantly normal morphology. There is no increase in blasts (confirmed by CD34 stain). No metastatic tumor is identified. No lymphoma is identified. No granulomas are identified. Bone trabeculae are unremarkable. 3:15 PM EDT [facility] Special and Immunohistochemical Stains Special Stain: A1-1 Vazquez-Giemsa A1-2 Vazquez-Giemsa A1-3 Vazquez-Giemsa C1-1 Vazquez-Giemsa IHC: B1-2 CD34 All controls show appropriate reactivity. All immunohistochemis try, in situ hybridization, and histochemical tests were developed by and are performed at the [facility], [address] [place] [address]. All tests reported here, except those addressing HER2 (breast) and PD-L1 expression as predictive markers, have not been cleared by or approved by the US Food and Drug Administration (FDA). The FDA has determined that such clearance or approval is not necessary. The laboratory is regulated under CLIA as qualified to perform high-complexity testing. The tests are used for clinical purposes. They should not be regarded as investigational or for research. This assay has not been validated on decalcified tissues. Results should be interpreted with caution given the likelihood of false negativity on decalcified specimens. 3:15 PM T [facility] Flow Cytometry Interpretation MIXED MARROW ELEMENTS WITH NO EVIDENCE OF INCREASED BLASTS OR ABNORMAL LYMPHOID POPULATIONS ([id number]). 3:15 PM EDT [facility] CYTOGENETICS/MOLECULA R INTERPRETATION Correlation with cytogenetic/molec ular analysis is suggested. 3:15 PM T [facility] Gross Description B. RIGHT A single specimen is received in formalin labeled bone marrow biopsy right posterior iliac crest and consists of 2 piece(s) of red/white tissue measuring 2.1/0.3 cm in length 0.2 cm in diameter. The specimen is submitted in to Histology for decalcification and routine processing. Cold Time: <1m 3:15 PM T [facility] Note: A resident was involved in the service. I attest I examined the relevant preparations for the specimens and confirmed the diagnosis or interpretation. 3:15 PM EDT [facility] Bone Marrow Peripheral blood specimen / Unknown Non-blood Collection / Unknown 09/19/2024 7:29 AM EDT 09/19/2024 12:16 PM EDT Bone marrow specimen (specimen) Specimen from bone marrow obtained by biopsy / Unknown 09/19/2024 7:29 AM EDT 09/19/2024 12:16 PM EDT Bone marrow specimen (specimen) Peripheral blood specimen / Unknown 09/19/2024 7:29 AM EDT 09/19/2024 12:16 PM EDT New Mckinney MD LAB PATHOLOGY ORDERABLES Edit ed Result - Final [facility] [address] [place] [address] documented in this encounter Visit Diagnoses Diagnosis 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
--- OUTSIDE RECORDS SUMMARY | 2024-09-30 09:00 | XMS_ITS | Encounter Summary ---
Author Organization Healthcare Address [address] [place] [address] Care Team Providers Care Ride Assembly Supervisor Name Role Phone Jevon Vazquez MD Primary Care Provider [phone] Reason for Visit * Reason Comments Labs Only Encounter Details Date Type Department Care Team ([facility] Contact Info) Description 09/30/2024 9:00 AM EDT Clinical Support [facility] Hematology/BMT and Cellular Therapy Program [address] [phone] Jyoti Kemp Acute myeloid leukemia not having [...] Hematology/BMT and Cellular Therapy Program [address] [phone] 10/14/2024 11:30 AM EDT Office Visit [facility] Hematology/BMT and Cellular Therapy Program [address] [phone] Zonia Hoffman, GLASS WORKER 800 [facility] [address] [place] [phone] 10/14/2024 4:30 PM EDT Appointment [facility] [address] [place] [address] 10/15/2024 2:00 PM EDT Appointment [facility] [address] [place] [address] 10/16/2024 2:00 PM EDT Appointment [facility] [address] [place] [address] 10/18/2024 1:00 PM EDT Appointment [facility] 2 [address] [place] [address] 10/19/2024 1:00 PM EDT Appointment [facility] 2 [address] [place] [address] 10/20/2024 3:30 PM EDT Appointment [facility] [address] [place] [address] 10/21/2024 4:30 PM EDT Appointment [facility] [address] [place] [address] documented as of this encounter Procedures Procedure [...] 9:50 AM EDT us Zonia Hardy Crystalsky GLASS WORKER LAB BLOOD ORDERABLES Final Res ult [facility] [address] [place] [address] * (ABNORMAL) CBC and Differential (09/30/2024 9:11 [...] 9:11 AM EDT 09/30/2024 9:34 AM EDT [facility] - 09/30/2024 11:07 AM EDT Therapeutic decision making should be based on absolute values, rather than percentages. 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
--- OUTSIDE RECORDS SUMMARY | 2024-09-30 09:30 | XMS_ITS | Encounter Summary ---
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 female. Referring Physician: Zonia Hoffman, GATE AGENT 800 [facility] [address] [address] Primary Care Provider: Jevon Vazquez MD Chief [...] k/??L. 12/2023- seen by Dr. Manzano in [facility] for evaluation of anemia and lymphocytosis. [...] interphase cells examined show a deletion of U3B879. Next generation sequencing: Abnormal: TP53 (c.814G>A; p.Mhm930Vjl) frequency 45%, DMNT3A (c.1522delC; p.[id number]) frequency 48%, RUNX1 (c.336_338delGCC; p.Aao670gtp) frequency 35% Azacitidine + Venetoclax Cycle 1: [...] - Continue local lab checks MWF at [facility] Allogenic transplant planning. 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 However, given her older age > 70, she would benefit from a geriatric BMT program and will make referrals should she be interested. Expected pancytopenia related to chemotherapy/AML. Check CBC x 3 times/week at [facility] Labs reviewed today, Hgb 7.7 , [...] reviewing results, and documenting. RODDY Cristina [facility] HEMATOLOGY/BMT AND CELLULAR THERAPY PROGRAM 800 [facility] [address] 40 minutes was spent on this encounter; [...] Upcoming Encounters Date Type Department Care Team ([facility] st Contact Info) Description 10/14/2024 11:00 AM EDT Clinical Support [facility] Hematology/BMT and Cellular Therapy Program 750 [facility], [address] [place] [address] [place] [address] 10/14/2024 11:30 AM EDT Office Visit [facility] Hematology/BMT and Cellular Therapy Program [address] [place] [address] Zonia Hoffman, GATE AGENT [address] [facility] [address] [place] [address] 10/14/2024 4:30 PM EDT Appointment [facility] In[facility] 800 [place] [address] 10/15/2024 2:00 PM EDT Appointment [facility] [address] [place] [address] 10/16/2024 2:00 PM EDT Appointment [facility] [address] [place] [address] 10/18/2024 1:00 PM EDT Appointment [facility] 2 [address] [place] [address] 10/19/2024 1:00 PM EDT Appointment [facility] 2 [address] [place] [address] 10/20/2024 3:30 PM EDT Appointment [facility] [address] [place] [address] 10/21/2024 4:30 PM EDT Appointment [facility] 2 [address] [place] [address] documented as of this encounter Results * (ABNORMAL) Comprehensive Metabolic Panel, Plasma (09/30/2024 9:11 AM EDT) [facility] Glucose, Plasma 135(H) 74 - 99 mg/dL [...] Res ult [facility] 800 [place] [address] * (ABNORMAL) CBC and Differential (09/30/2024 9:11 [...] Res ult [facility] 800 [place] [address] documented in this encounter Visit Diagnoses Diagnosis [...] documented as of this encounter Care Teams Greenbelt Relationship Specialty Start Date End Date Jevon Vazquez MD [address] [place] [address] #1 #1 LucienJOSEP [id number] PCP - General 03/23/22 documented as of this encounter
[2024-10-10 09:05] VITALS: BMI 21.8
--- OUTSIDE RECORDS SUMMARY | 2024-10-10 09:07 | XMS_ITS | Encounter Summary ---
Author Organization [facility] Address [address] [place] [address] Care Team Providers Care Signal Person Name Role Phone Jevon Vazquez MD Primary Care Provider [phone] Reason for Visit * Reason Comments Med Refill Encounter Details Date Type Department Care Team ([facility] Contact Info) Description 01/30/2024 Refill P[facility] CC Hematology/BMT and Cellular Therapy Program [address] [phone] [place] MD 800 [facility] [address] [place] [phone] Social History Tobacco Use Types Packs/Day Years [...] Upcoming Encounters Date Type Department Care Team ([facility] Contact Info) Description 10/14/2024 11:00 AM EDT Clinical Support P[facility] CC Hematology/BMT and Cellular Therapy Program [address] [place] [address] 10/14/2024 11:30 AM EDT Office Visit [facility] CC Hematology/BMT and Cellular Therapy Program [address] [phone] Zonia Hoffman, WATER SKI ASSEMBLER 800 [facility] [address] [place] [address] 10/14/2024 4:30 PM EDT Appointment [facility] Infusion 800 [place] [address] 10/15/2024 2:00 PM EDT Appointment [facility] 800 [place] [address] 10/16/2024 2:00 PM EDT Appointment [facility] 800 [place] [address] 10/18/2024 1:00 PM EDT Appointment [facility] 2 [address] [place] [address] 10/19/2024 1:00 PM EDT Appointment [facility] 2 [address] [place] [address] 10/20/2024 3:30 PM EDT Appointment [facility] 800 [place] [address] 10/21/2024 4:30 PM EDT Appointment [facility] 2 [address] [place] [address] documented as of this encounter Visit Diagnoses Not on filedocumented in this encounter Additional Health Concerns Assessment Noted Time A fall risk assessment has been complete d for the patient 01/11/2024 9:16 AM EDT A Body Mass Index follow-up plan has been documented for the patient 01/21/2024 6:16 AM EDT documented as of this encounter Care Teams Signal Person Relationship Specialty Start Date End Date Jevon Vazquez MD [address] [place] [address] #1 #1 [place] [address] PCP - General 03/23/22 documented as of this encounter
--- OUTSIDE RECORDS SUMMARY | 2024-10-10 09:07 | XMS_ITS | Encounter Summary ---
Author Organization Healthcare Address [address] [place] [address] Care Team Providers Care Collection Coordinator Name Role Phone Jevon Vazquez MD Primary Care Provider [phone] Encounter Details Date Type Department Care Team ([facility] Contact Info) Description 09/19/2024 Orders Only [facility] Hematology/BMT and Cellular Therapy Program [address] [phone] 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, RN [facility] Social History Tobacco Use [...] Upcoming Encounters Date Type Department Care Team ([facility] Contact Info) Description 10/14/2024 11:00 AM EDT Clinical Support [facility] Hematology/BMT and Cellular Therapy Program [address] [phone] 10/14/2024 11:30 AM EDT Office Visit [facility] Hematology/BMT and Cellular Therapy Program [address] [phone] Zonia Hoffman, RECRUIT INSTRUCTOR 800 [facility] [address] [place] [address] 10/14/2024 4:30 PM EDT Appointment [facility] Infusion 800 [place] [address] 10/15/2024 2:00 PM EDT Appointment [facility] Infusion [address] [place] [address] 10/16/2024 2:00 PM EDT Appointment [facility] Infusion [address] [place] [address] 10/18/2024 1:00 PM EDT Appointment [facility] 2 [address] [place] [address] 10/19/2024 1:00 PM EDT Appointment [facility] 2 [address] [place] [address] 10/20/2024 3:30 PM EDT Appointment [facility] Infusion [address] [place] [address] 10/21/2024 4:30 PM EDT Appointment [facility] 2 [address] [place] [address] documented as of this encounter Visit Diagnoses Not on filedocumented in this encounter Additional Health Concerns Assessment Noted Time A fall risk assessment has been complete d for the patient 09/19/2024 8:38 AM EDT A Body Mass Index follow-up plan has been documented for the patient 05/28/2024 1:52 PM EST documented as of this encounter Care Teams Collection Coordinator Relationship Specialty Start Date End Date Jevon Vazquez MD [address] [place] [address] #1 [address] [place] [address] PCP - General 03/23/22 documented as of this encounter
--- OUTSIDE RECORDS SUMMARY | 2024-10-10 09:07 | XMS_ITS | Encounter Summary ---
Author Organization [facility] Address [address] [place] [address] Care Team Providers Care Retort Setter Name Role Phone Jevon Vazquez MD Primary Care Provider [phone] Encounter Details Date Type Department Care Team ([facility] Contact Info) Description 09/15/2024 Telephone P[facility] CC Hematology/BMT and Cellular Therapy Program [address] [phone] Zonia Hoffman, TRANSMISSION MECHANIC 800 [facility] [address] [place] [phone] Social History Tobacco Use Types Packs/Day Years [...] Upcoming Encounters Date Type Department Care Team ([facility] Contact Info) Description 10/14/2024 11:00 AM EDT Clinical Support [facility] Hematology/BMT and Cellular Therapy Program [address] [place] [phone] 10/14/2024 11:30 AM EDT Office Visit [facility] Hematology/BMT and Cellular Therapy Program [address] [place] [phone] Zonia Hoffman, TRANSMISSION MECHANIC 800 [facility] [address] [place] [address] 10/14/2024 4:30 PM EDT Appointment [facility] Infusion 800 [place] [address] 10/15/2024 2:00 PM EDT Appointment [facility] Infusion 800 [place] [address] 10/16/2024 2:00 PM EDT Appointment [facility] Infusion 800 [place] [address] 10/18/2024 1:00 PM EDT Appointment [facility] 2 [address] [place] [address] 10/19/2024 1:00 PM EDT Appointment [facility] 2 [address] [place] [address] 10/20/2024 3:30 PM EDT Appointment [facility] Infusion 800 [place] [address] 10/21/2024 4:30 PM EDT Appointment [facility] 2 [address] [place] [address] documented as of this encounter Visit Diagnoses Not on filedocumented in this encounter Additional Health Concerns Assessment Noted Time A fall risk assessment has been complete d for the patient 07/30/2024 8:29 AM EDT A Body Mass Index follow-up plan has been documented for the patient 05/28/2024 1:52 PM EST documented as of this encounter Care Teams Retort Setter Relationship Specialty Start Date End Date Jevon Vazquez MD [address] [place] [address] #1 #1 [place] [id number] PCP - General 03/23/22 documented as of this encounter
--- OUTSIDE RECORDS SUMMARY | 2024-10-10 09:07 | XMS_ITS ---
Author Organization [facility] Address [address] [place] [address] Care Team Providers Care Universal Grinder Tool Name Role Phone Jevon Vazquez MD Primary Care Provider [phone] Active Problems Problem Noted Date Diagnosed Date [...]
--- OUTSIDE RECORDS SUMMARY | 2024-10-10 09:07 | XMS_ITS | Encounter Summary ---
Author Organization [facility] Address [address] [place] [address] Care Team Providers Care Lieutenant Colonel Name Role Phone Jevon Vazquez MD Primary Care Provider [phone] Encounter Details Date Type Department Care Team ([facility] Contact Info) Description 09/19/2024 Telephone [facility] Hematology/BMT and Cellular Therapy Program [address] [place] [phone] Romana Richmond RN [facility] Social History Tobacco Use [...] ([facility] Contact Info) Description 10/14/2024 11:00 AM EDT Clinical Support [facility] Hematology/BMT and Cellular Therapy Program [address] [place] [address] 10/14/2024 11:30 AM EDT Office Visit [facility] CC Hematology/BMT and Cellular Therapy Program 750 [facility] [address] [place] [address] Zonia Hoffman, SEAMING INSPECTOR 800 [facility] [address] [place] [address] 10/14/2024 4:30 PM EDT Appointment [facility] H Infusion [address] [place] [address] 10/15/2024 2:00 PM EDT Appointment [facility] Infusion [address] [place] [address] 10/16/2024 2:00 PM EDT Appointment [facility] Infusion [address] [place] [address] 10/18/2024 1:00 PM EDT Appointment [facility] 2 [address] [place] [address] 10/19/2024 1:00 PM EDT Appointment [facility] 2 [address] [place] [address] 10/20/2024 3:30 PM EDT Appointment [facility] Infusion [address] [place] [address] 10/21/2024 4:30 PM EDT Appointment [facility] 2 [address] [place] [address] documented as of this encounter Visit Diagnoses Not on filedocumented in this encounter Additional Health Concerns Assessment Noted Time A fall risk assessment has been complete d for the patient 09/19/2024 8:38 AM EDT A Body Mass Index follow-up plan has been documented for the patient 05/28/2024 1:52 PM EST documented as of this encounter Care Teams Lieutenant Colonel Relationship Specialty Start Date End Date Jevon Vazquez MD [address] [place] [address] #1 #1 [place] [id number] PCP - General 03/23/22 documented as of this encounter
--- OUTSIDE RECORDS SUMMARY | 2024-10-10 09:08 | XMS_ITS | Encounter Summary ---
Author Organization Healthcare Address [address] [place] [address] Care Team Providers Care Director Summer Sessions Name Role Phone Jevon Vazquez MD Primary [...] Hematology/BMT and Cellular Therapy Program [address] [address] 10/14/2024 11:30 AM EDT Office Visit [facility] Hematology/BMT and Cellular Therapy Program [address] [phone] Zonia Hoffman, RODDY 800 [facility] [address] [place] [address] 10/14/2024 4:30 PM EDT Appointment [facility] Infusion 800 [place] [address] 10/15/2024 2:00 PM EDT Appointment [facility] Infusion [address] [place] [address] 10/16/2024 2:00 PM EDT Appointment [facility] Infusion [address] [place] [address] 10/18/2024 1:00 PM EDT Appointment [facility] 2 [address] [place] [address] 10/19/2024 1:00 PM EDT Appointment [facility] 2 [address] [place] [address] 10/20/2024 3:30 PM EDT Appointment [facility] Infusion [address] [place] [address] 10/21/2024 4:30 PM EDT Appointment [facility] 2 [address] [place] [address] documented as of this encounter Visit Diagnoses Not on filedocumented in this encounter Additional Health Concerns Assessment Noted Time A fall risk assessment has been complete d for the patient 09/19/2024 8:38 AM EDT A Body Mass Index follow-up plan has been documented for the patient 05/28/2024 1:52 PM EST documented as of this encounter Care Teams Director Summer Sessions Relationship Specialty Start Date End Date Jevon Vazquez MD [address] [place] [address] #1 #1 [place] [address] PCP - General 03/23/22 documented as of this encounter
--- OUTSIDE RECORDS SUMMARY | 2024-10-10 09:08 | XMS_ITS | Encounter Summary ---
Author Organization Healthcare Address [address] [place] [address] Care Team Providers Care Steel Rod Buster Name Role Phone Jevon Vazquez MD Primary Care Provider [phone] Encounter Details Date Type Department Care Team [...] Hematology/BMT and Cellular Therapy Program [address] [address] 10/14/2024 11:30 AM EDT Office Visit [facility] Hematology/BMT and Cellular Therapy Program [address] [phone] Zonia Hoffman, RODDY 800 [facility] [address] [place] [address] 10/14/2024 4:30 PM EDT Appointment [facility] Infusion 800 [place] [address] 10/15/2024 2:00 PM EDT Appointment [facility] Infusion [address] [place] [address] 10/16/2024 2:00 PM EDT Appointment [facility] Infusion [address] [place] [address] 10/18/2024 1:00 PM EDT Appointment [facility] 2 [address] [place] [address] 10/19/2024 1:00 PM EDT Appointment [facility] 2 [address] [place] [address] 10/20/2024 3:30 PM EDT Appointment [facility] Infusion [address] [place] [address] 10/21/2024 4:30 PM EDT Appointment [facility] 2 [address] [place] [address] documented as of this encounter Visit Diagnoses Not on filedocumented in this encounter Additional Health Concerns Assessment Noted Time A fall risk assessment has been complete d for the patient 07/30/2024 8:29 AM EDT A Body Mass Index follow-up plan has been documented for the patient 05/28/2024 1:52 PM EST documented as of this encounter Care Teams Steel Rod Buster Relationship Specialty Start Date End Date Jevon Vazquez MD [address] [place] [address] #1 [address] [place] [address] PCP - General 03/23/22 documented as of this encounter
--- OUTSIDE RECORDS SUMMARY | 2024-10-10 09:08 | XMS_ITS | Encounter Summary ---
Author Organization Healthcare Address [address] [place] [address] Care Team Providers Care Cvicu Nurse Name Role Phone Jevon Vazquez MD Primary Care Provider [phone] Encounter Details Date Type Department Care Team [...] Hematology/BMT and Cellular Therapy Program [address] [address] 10/14/2024 11:30 AM EDT Office Visit [facility] Hematology/BMT and Cellular Therapy Program [address] [phone] Zonia Hoffman, RODDY 800 [facility] [address] [place] [address] 10/14/2024 4:30 PM EDT Appointment [facility] H Infusion 800 [place] [address] 10/15/2024 2:00 PM EDT Appointment [facility] Infusion [address] [place] [address] 10/16/2024 2:00 PM EDT Appointment [facility] Infusion [address] [place] [address] 10/18/2024 1:00 PM EDT Appointment [facility] 2 [address] [place] [address] 10/19/2024 1:00 PM EDT Appointment [facility] 2 [address] [place] [address] 10/20/2024 3:30 PM EDT Appointment [facility] Infusion [address] [place] [address] 10/21/2024 4:30 PM EDT Appointment [facility] 2 [address] [place] [address] documented as of this encounter Visit Diagnoses Not on filedocumented in this encounter Additional Health Concerns Assessment Noted Time A fall risk assessment has been complete d for the patient 09/19/2024 8:38 AM EDT A Body Mass Index follow-up plan has been documented for the patient 05/28/2024 1:52 PM EST documented as of this encounter Care Teams Cvicu Nurse Relationship Specialty Start Date End Date Jevon Vazquez MD [address] [place] [address] #1 #1 [place] [address] PCP - General 03/23/22 documented as of this encounter
--- OUTSIDE RECORDS SUMMARY | 2024-10-10 09:08 | XMS_ITS | Encounter Summary ---
Author Organization Healthcare Address [address] [place] [address] Care Team Providers Care Binder Lockstitch Name Role Phone Jevon Vazquez MD Primary Care Provider Encounter Details Date Type Department Care Team (Latest Contact Info) Description 10/07/2024 Travel Social History Tobacco Use Types Packs/Day [...] Hematology/BMT and Cellular Therapy Program [address] [address] 10/14/2024 11:30 AM EDT Office Visit [facility] Hematology/BMT and Cellular Therapy Program [address] [phone] Zonia Hoffman, RODDY 800 [facility] [address] [place] [address] 10/14/2024 4:30 PM EDT Appointment [facility] H Infusion 800 [place] [address] 10/15/2024 2:00 PM EDT Appointment [facility] Infusion [address] [place] [address] 10/16/2024 2:00 PM EDT Appointment [facility] Infusion [address] [place] [address] 10/18/2024 1:00 PM EDT Appointment [facility] 2 [address] [place] [address] 10/19/2024 1:00 PM EDT Appointment [facility] 2 [address] [place] [address] 10/20/2024 3:30 PM EDT Appointment [facility] Infusion [address] [place] [address] 10/21/2024 4:30 PM EDT Appointment [facility] 2 [address] [place] [address] documented as of this encounter Visit Diagnoses Not on filedocumented in this encounter Additional Health Concerns Assessment Noted Time A fall risk assessment has been complete d for the patient 09/30/2024 9:33 AM EDT A Body Mass Index follow-up plan has been documented for the patient 05/28/2024 1:52 PM EST documented as of this encounter Care Teams Binder Lockstitch Relationship Specialty Start Date End Date Jevon Vazquez MD [address] [place] [address] #1 #1 [place] [address] PCP - General 03/23/22 documented as of this encounter
--- OUTSIDE RECORDS SUMMARY | 2024-10-10 09:08 | XMS_ITS | Encounter Summary ---
Author Organization Healthcare Address [address] [place] [address] Care Team Providers Care Division Field Inspector Name Role Phone Jevon Vazquez MD Primary Care Provider [phone] Encounter Details Date Type Department Care Team (Latest Contact Info) Description 10/08/2024 Travel Social History Tobacco Use Types Packs/Day [...] Hematology/BMT and Cellular Therapy Program [address] [address] 10/14/2024 11:30 AM EDT Office Visit [facility] CC Hematology/BMT and Cellular Therapy Program [address] [address] Zonia Hoffman, RODDY 800 [facility] [address] [place] [address] 10/14/2024 4:30 PM EDT Appointment [facility] H Infusion 800 [place] [address] 10/15/2024 2:00 PM EDT Appointment [facility] Infusion [address] [place] [address] 10/16/2024 2:00 PM EDT Appointment [facility] Infusion 800 [place] [address] 10/18/2024 1:00 PM EDT Appointment [facility] 2 [address] [place] [address] 10/19/2024 1:00 PM EDT Appointment [facility] 2 [address] [place] [address] 10/20/2024 3:30 PM EDT Appointment [facility] Infusion [address] [place] [address] 10/21/2024 4:30 PM EDT Appointment [facility] 2 [address] [place] [address] documented as of this encounter Visit Diagnoses Not on filedocumented in this encounter Additional Health Concerns Assessment Noted Time A fall risk assessment has been complete d for the patient 09/30/2024 9:33 AM EDT A Body Mass Index follow-up plan has been documented for the patient 05/28/2024 1:52 PM EST documented as of this encounter Care Teams Division Field Inspector Relationship Specialty Start Date End Date Jevon Vazquez MD [address] [place] [address] #1 #1 [place] [address] PCP - General 03/23/22 documented as of this encounter
--- OUTSIDE RECORDS SUMMARY | 2024-10-10 09:08 | XMS_ITS | Encounter Summary ---
Author Organization Healthcare Address [address] [place] [address] Care Team Providers Care Steamer Operator Name Role Phone Jevon Vazquez MD Primary Care Provider [phone] Encounter Details Date Type Department Care Team [...] Hematology/BMT and Cellular Therapy Program [address] [address] 10/14/2024 11:30 AM EDT Office Visit P[facility] CC Hematology/BMT and Cellular Therapy Program [address] [address] Zonia Hoffman, RODDY 800 [facility] [address] [place] [address] 10/14/2024 4:30 PM EDT Appointment [facility] H Infusion 800 [place] [address] 10/15/2024 2:00 PM EDT Appointment [facility] H Infusion [address] [place] [address] 10/16/2024 2:00 PM EDT Appointment [facility] Infusion [address] [place] [address] 10/18/2024 1:00 PM EDT Appointment [facility] 2 [address] [place] [address] 10/19/2024 1:00 PM EDT Appointment [facility] 2 [address] [place] [address] 10/20/2024 3:30 PM EDT Appointment [facility] Infusion [address] [place] [address] 10/21/2024 4:30 PM EDT Appointment [facility] 2 [address] [place] [address] documented as of this encounter Visit Diagnoses Not on filedocumented in this encounter Additional Health Concerns Assessment Noted Time A fall risk assessment has been complete d for the patient 09/19/2024 8:38 AM EDT A Body Mass Index follow-up plan has been documented for the patient 05/28/2024 1:52 PM EST documented as of this encounter Care Teams Steamer Operator Relationship Specialty Start Date End Date Jevon Vazquez MD [address] [place] [address] #1 #1 [place] [id number] PCP - General 03/23/22 documented as of this encounter
--- OUTSIDE RECORDS SUMMARY | 2024-10-10 09:08 | XMS_ITS | Encounter Summary ---
Author Organization Healthcare Address [address] [place] [address] Care Team Providers Care Administrative Volunteer Name Role Phone Jevon Vazquez MD Primary Care Provider [phone] Encounter Details Date Type Department Care Team (Latest Contact Info) Description 10/09/2024 Travel Social History Tobacco Use Types Packs/Day [...] Hematology/BMT and Cellular Therapy Program [address] [address] 10/14/2024 11:30 AM EDT Office Visit [facility] CC Hematology/BMT and Cellular Therapy Program [address] [address] Zonia Hoffman, RODDY 800 [facility] [address] [place] [address] 10/14/2024 4:30 PM EDT Appointment [facility] H Infusion 800 [place] [address] 10/15/2024 2:00 PM EDT Appointment [facility] Infusion [address] [place] [address] 10/16/2024 2:00 PM EDT Appointment [facility] Infusion [address] [place] [address] 10/18/2024 1:00 PM EDT Appointment [facility] 2 [address] [place] [address] 10/19/2024 1:00 PM EDT Appointment [facility] 2 [address] [place] [address] 10/20/2024 3:30 PM EDT Appointment [facility] Infusion [address] [place] [address] 10/21/2024 4:30 PM EDT Appointment [facility] 2 [address] [place] [address] documented as of this encounter Visit Diagnoses Not on filedocumented in this encounter Additional Health Concerns Assessment Noted Time A fall risk assessment has been complete d for the patient 09/30/2024 9:33 AM EDT A Body Mass Index follow-up plan has been documented for the patient 05/28/2024 1:52 PM EST documented as of this encounter Care Teams Administrative Volunteer Relationship Specialty Start Date End Date Jevon Vazquez MD [address] [place] [address] #1 #1 [place] [address] PCP - General 03/23/22 documented as of this encounter
--- OUTSIDE RECORDS SUMMARY | 2024-10-10 09:08 | XMS_ITS | Encounter Summary ---
Author Organization Healthcare Address [address] [place] [address] Care Team Providers Care Fairing Worker Name Role Phone Jevon Vazquez MD [...] Hematology/BMT and Cellular Therapy Program [address] [address] 10/14/2024 11:30 AM EDT Office Visit P[facility] CC Hematology/BMT and Cellular Therapy Program [address] [address] Zonia Hoffman, RODDY 800 [facility] [address] [place] [address] 10/14/2024 4:30 PM EDT Appointment [facility] H Infusion 800 [place] [address] 10/15/2024 2:00 PM EDT Appointment [facility] H Infusion [address] [place] [address] 10/16/2024 2:00 PM EDT Appointment [facility] Infusion [address] [place] [address] 10/18/2024 1:00 PM EDT Appointment [facility] 2 [address] [place] [address] 10/19/2024 1:00 PM EDT Appointment [facility] 2 [address] [place] [address] 10/20/2024 3:30 PM EDT Appointment [facility] Infusion [address] [place] [address] 10/21/2024 4:30 PM EDT Appointment [facility] 2 [address] [place] [address] documented as of this encounter Visit Diagnoses Not on filedocumented in this encounter Additional Health Concerns Assessment Noted Time A fall risk assessment has been complete d for the patient 09/19/2024 8:38 AM EDT A Body Mass Index follow-up plan has been documented for the patient 05/28/2024 1:52 PM EST documented as of this encounter Care Teams Fairing Worker Relationship Specialty Start Date End Date Jevon Vazquez MD [address] [place] [address] #1 #1 [place] [address] PCP - General 03/23/22 documented as of this encounter
--- OUTSIDE RECORDS SUMMARY | 2024-10-10 09:08 | XMS_ITS | Encounter Summary ---
Author Organization Healthcare Address [address] [place] [address] Care Team Providers Care Library Science Professor Name Role Phone Jevon Vazquez MD Primary Care Provider [phone] Encounter Details Date Type Department Care Team [...] Cellular Therapy Program [address] [address] 10/14/2024 11:30 AM EDT Office Visit [facility] CC Hematology/BMT and Cellular Therapy Program [address] [address] Zonia Hoffman, RODDY 800 [facility] [address] [place] [address] 10/14/2024 4:30 PM EDT Appointment [facility] H Infusion 800 [place] [address] 10/15/2024 2:00 PM EDT Appointment [facility] Infusion [address] [place] [address] 10/16/2024 2:00 PM EDT Appointment [facility] Infusion [address] [place] [address] 10/18/2024 1:00 PM EDT Appointment [facility] 2 [address] [place] [address] 10/19/2024 1:00 PM EDT Appointment [facility] 2 [address] [place] [address] 10/20/2024 3:30 PM EDT Appointment [facility] Infusion [address] [place] [address] 10/21/2024 4:30 PM EDT Appointment [facility] 2 [address] [place] [address] documented as of this encounter Visit Diagnoses Not on filedocumented in this encounter Additional Health Concerns Assessment Noted Time A fall risk assessment has been complete d for the patient 09/19/2024 8:38 AM EDT A Body Mass Index follow-up plan has been documented for the patient 05/28/2024 1:52 PM EST documented as of this encounter Care Teams Library Science Professor Relationship Specialty Start Date End Date Jevon Vazquez MD [address] [place] [address] #1 #1 [place]P [address] PCP - General 03/23/22 documented as of this encounter
--- OUTSIDE RECORDS SUMMARY | 2024-10-10 09:08 | XMS_ITS | Encounter Summary ---
Author Organization Healthcare Address [address] [place] [address] Care Team Providers Care Campus Executive Director Name Role Phone Jevon Vazquez MD Primary Care Provider [phone] Encounter Details Date Type Department Care Team [...] Hematology/BMT and Cellular Therapy Program [address] [address] 10/14/2024 11:30 AM EDT Office Visit [facility] Hematology/BMT and Cellular Therapy Program [address] [address] Zonia Hoffman, RODDY 800 [facility] [address] [place] [address] 10/14/2024 4:30 PM EDT Appointment [facility] Infusion 800 [place] [address] 10/15/2024 2:00 PM EDT Appointment [facility] 800 [place] [address] 10/16/2024 2:00 PM EDT Appointment [facility] 800 [place] [address] 10/18/2024 1:00 PM EDT Appointment [facility] 2 744 [place] [address] 10/19/2024 1:00 PM EDT Appointment [facility] 2 744 [place] [address] 10/20/2024 3:30 PM EDT Appointment [facility] 800 [place] [address] 10/21/2024 4:30 PM EDT Appointment [facility] 2 [address] [place] [address] documented as of this encounter Visit Diagnoses Not on filedocumented in this encounter Additional Health Concerns Assessment Noted Time A fall risk assessment has been complete d for the patient 09/19/2024 8:38 AM EDT A Body Mass Index follow-up plan has been documented for the patient 05/28/2024 1:52 PM EST documented as of this encounter Care Teams Campus Executive Director Relationship Specialty Start Date End Date Jevon Vazquez MD [address] [place] [address] #1 #1 [place] [address] PCP - General 03/23/22 documented as of this encounter
--- OUTSIDE RECORDS SUMMARY | 2024-10-10 09:08 | XMS_ITS | Encounter Summary ---
Author Organization Healthcare Address [address] [place] [address] Care Team Providers Care Company Pilot Name Role Phone Jevon Vazquez MD Primary Care Provider [phone] Encounter Details Date Type Department Care Team [...] Hematology/BMT and Cellular Therapy Program [address] [address] 10/14/2024 11:30 AM EDT Office Visit [facility] Hematology/BMT and Cellular Therapy Program [address] [address] Zonia Hoffman, RODDY 800 [facility] [address] [place] [address] 10/14/2024 4:30 PM EDT Appointment [facility] Infusion 800 [place] [address] 10/15/2024 2:00 PM EDT Appointment [facility]fusion 800 [place] [address] 10/16/2024 2:00 PM EDT Appointment [facility] 800 [place] [address] 10/18/2024 1:00 PM EDT Appointment [facility] 2 [address] [place] [address] 10/19/2024 1:00 PM EDT Appointment [facility] 2 [address] [place] [address] 10/20/2024 3:30 PM EDT Appointment [facility] 800 [place] [address] 10/21/2024 4:30 PM EDT Appointment [facility] 2 [address] [place] [address] documented as of this encounter Visit Diagnoses Not on filedocumented in this encounter Additional Health Concerns Assessment Noted Time A fall risk assessment has been complete d for the patient 07/30/2024 8:29 AM EDT A Body Mass Index follow-up plan has been documented for the patient 05/28/2024 1:52 PM EST documented as of this encounter Care Teams Company Pilot Relationship Specialty Start Date End Date Jevon Vazquez MD [address] [place] [address] #1 #[address] [place] [address] PCP - General 03/23/22 documented as of this encounter
--- OUTSIDE RECORDS SUMMARY | 2024-10-10 09:08 | XMS_ITS | Encounter Summary ---
Author Organization Healthcare Address [address] [place] [address] Care Team Providers Care Brand Ambassador Name Role Phone Jevon Vazquez MD Primary Care Provider [phone] Encounter Details Date Type Department Care Team [...] Hematology/BMT and Cellular Therapy Program [address] [address] 10/14/2024 11:30 AM EDT Office Visit [facility] Hematology/BMT and Cellular Therapy Program [address] [address] Zonia Hoffman, RODDY 800 [facility] [address] [place] [address] 10/14/2024 4:30 PM EDT Appointment [facility] Infusion 800 [place] [address] 10/15/2024 2:00 PM EDT Appointment [facility] Infusion 800 [place] [address] 10/16/2024 2:00 PM EDT Appointment [facility] 800 [place] [address] 10/18/2024 1:00 PM EDT Appointment [facility] 2 [address] [place] [address] 10/19/2024 1:00 PM EDT Appointment [facility] 2 744 [place] [address] 10/20/2024 3:30 PM EDT Appointment [facility] 800 [place] [address] 10/21/2024 4:30 PM EDT Appointment [facility] 2 744 [place] [address] documented as of this encounter Visit Diagnoses Not on filedocumented in this encounter Additional Health Concerns Assessment Noted Time A fall risk assessment has been complete d for the patient 07/30/2024 8:29 AM EDT A Body Mass Index follow-up plan has been documented for the patient 05/28/2024 1:52 PM EST documented as of this encounter Care Teams Brand Ambassador Relationship Specialty Start Date End Date Jevon Vazquez MD [address] [place] [address] #1 #1 [place] [address] PCP - General 03/23/22 documented as of this encounter
--- OUTSIDE RECORDS SUMMARY | 2024-10-10 09:08 | XMS_ITS | Clinical Summary ---
Author Organization [facility] Address [address] [place] [address] Phone Care Team Providers Care Director Prospect Name Role Phone Jevon Vazquez MD Primary Care Provider [phone] Allergies Active Allergy Reactions Criticality Noted Date [...] L4-5 LAMINECTOMY; Surgeon: Ivan Bartholomew MD; Location: [facility] MA[facility] OR; Service: Spine Medical [...] 5.6 % 11/14/2022 2:57 PM EDT PREFERRED [place], [employer] Est. Avg Glucose 148 mg/dL 11/14/2022 2:57 PM EDT [employer], [facility] Blood VENOUS BLOOD / Unknown Venipuncture / Unknown 11/11/2022 3:46 PM EDT 11/11/2022 3:55 PM EDT Narrative [facility] [employer] [facility] - 11/14/2022 2:57 PM EDT REFERENCE RANGE: Normal: 4.0-5.6% Pre-diabetes: 5.7-6.4% Provisional diagnosis of diabetes: >6.4% Hgb F>10% and anything which shortens red cell survival, such as hemolytic anemia, or unstable hemoglobin variants such as HbSS, HbSC, or HbCC, will lower the HbA1c value associated with a given level of glycemic control. us Lexi Maloney DO CHEMISTRY ORDERABLES Final R esult [facility] [employer] [facility] [address] , [place] [address] * (ABNORMAL) BASIC METABOLIC PANEL (11/11/2022 3:46 PM EDT) Sodium 136 136 - 145 mmol/L 11/11/2022 4:11 PM EDT [facility] Potassium 3.8 3.5 - 5.0 mmol/L 11/11/2022 4:11 PM EDT [facility] Chloride 102 98 - 107 mmol/L 11/11/2022 4:11 PM EDT [facility] Total CO2 24 22 - 29 mmol/L 11/11/2022 4:11 PM EDT [facility] Anion Gap 10 7 - 16 mmol/L 11/11/2022 4:11 PM EDT [facility] Calcium 10.1 8.8 - 10.4 mg/dL 11/11/2022 4:11 PM EDT [facility] Glucose Lvl 147(H) 82 - 100 mg/dL 11/11/2022 4:11 PM EDT [facility] BUN 15 8 - 23 mg/dL 11/11/2022 4:11 PM EDT [facility] Creatinine 0.82 0.51 - 1.30 mg/dL 11/11/2022 4:11 PM EDT [facility] eGFR (CKD-EPIcr 2020) 76 >=60 mL/min/1.7 3 m2 11/11/2022 4:11 PM EDT [facility] Comment:Estimated GFR was ca lculated using the CKD-EPIcr (2020) equation refit without race. The equation is recommended by the National Kidney Foundation - [place] [employer] of Nephrology Task Force. Blood VENOUS BLOOD / Unknown Venipuncture / Unknown 11/11/2022 3:46 PM EDT 11/11/2022 3:54 PM EDT us Leona Hanna DO CHEMISTRY ORDERABLES Final Res ult [facility] [address] [place] [address] * DX BONE DENSITY AXIAL SKELETON (07/25/2022 9:14 AM EDT) Anatomical Region Laterality Modality Dexa Scan 07/25/2022 Narrative 07/25/2022 3:45 PM EDT Indication: The patient is a female age 65 or older who requires a bone density assessment. Study was performed on UCT Coatings 5. Bone Density: Region BMD T-score Z-score [...] Most Recently Relevant to Health Maintenance [place] [address] [place] [address] MEDICARE SUPPLEMENT MEDICARE [place] PART A AND B Member Subscriber Plan / Payer (Ef fective 2016-Present) Name:Ashly Hernández Member ID:[id number] Relation to Subscriber:Self Name:Ashly Hernández Subscriber ID:[id number] Payer ID:Not on file Group ID:Not on file Type:Not on file Address: [address] MEDICARE SUPPLEMENT MEDICARE [place] PART A & [place] [address] [place] [phone] MEDICARE [place] PART A AND B Member Subscriber Plan / Payer (Ef fective 2016-Present) Name:Ashly Hernández Member ID:[id number] Relation to Subscriber:Self Name:Ashly Hernández Subscriber ID:[id number] Payer ID:Not on file Group ID:Not on file Type:Not on file Address: [address] MEDICARE SUPPLEMENT [employer] MEDICARE [place] PART A AND B [address] MEDICARE SUPPLEMENT Advance Directives For more information, please contact: [phone] * Full Code (Latest Code Status on File) Date Activated Date Inactivated Comments 11/14/2022 6:53 PM 11/16/2022 7:37 PM * Full Code Date Activated Date Inactivated Comments 11/12/2022 5:17 AM 11/14/2022 6:47 PM Care Teams Director Prospect Relationship Specialty Start Date End Date Jevon Vazquez MD [address] [place] [address] PCP - General Family Medicine 11/10/22
--- OUTSIDE RECORDS SUMMARY | 2024-10-10 09:08 | XMS_ITS | Encounter Summary ---
Author Organization Healthcare Address [address] [place] [address] Care Team Providers Care Riveter Hand Name Role Phone Jevon Vazquez MD Primary Care Provider [phone] Encounter Details Date Type Department Care Team ([facility] st Contact Info) Description 09/01/2024 Telephone [facility] Hematology/BMT and Cellular Therapy Program [address] [address] Zonia Hoffman, DRY END OPERATOR 800 [facility] [address] [place] [address] Social History Tobacco Use Types Packs/Day Years [...] told her to cancel. Please confirm Callback number:[phone] documented in this encounter Plan of Treatment Upcoming Encounters Date Type Department Care Team (Late st Contact Info) Description 10/14/2024 11:00 AM EDT Clinical Support PAV Hematology/BMT and Cellular Therapy Program [address] [address] 10/14/2024 11:30 AM EDT Office Visit PAV Hematology/BMT and Cellular Therapy Program [address] [address] Zonia Hoffman, DRY END OPERATOR 800 [facility] [address] [place] [address] 10/14/2024 4:30 PM EDT Appointment [facility] H Infusion 800 [place] [address] 10/15/2024 2:00 PM EDT Appointment [facility] Infusion 800 [place] [address] 10/16/2024 2:00 PM EDT Appointment [facility] Infusion [address] [place] [address] 10/18/2024 1:00 PM EDT Appointment [facility] 2 [address]44 [place] [address] 10/19/2024 1:00 PM EDT Appointment [facility] 2 [address] [place] [address] 10/20/2024 3:30 PM EDT Appointment [facility] Infusion 800 [place] [address] 10/21/2024 4:30 PM EDT Appointment [facility] 2 [address] [place] [address] documented as of this encounter Visit Diagnoses Not on filedocumented in this encounter Additional Health Concerns Assessment Noted Time A fall risk assessment has been complete d for the patient 07/30/2024 8:29 AM EDT A Body Mass Index follow-up plan has been documented for the patient 05/28/2024 1:52 PM EST documented as of this encounter Care Teams Riveter Hand Relationship Specialty Start Date End Date Jevon Vazquez MD [address] [place] [address] #1 #1 [place] [address] PCP - General 03/23/22 documented as of this encounter
--- OUTSIDE RECORDS SUMMARY | 2024-10-10 09:08 | XMS_ITS | Encounter Summary ---
Author Organization Healthcare Address [address] [place] [address] Care Team Providers Care Meteorology Instructor Name Role Phone Jevon Vazquez MD Primary Care Provider [phone] Encounter Details Date Type Department Care Team [...] Hematology/BMT and Cellular Therapy Program [address] [address] 10/14/2024 11:30 AM EDT Office Visit [facility] Hematology/BMT and Cellular Therapy Program [address] [address] Zonia Hoffman, RODDY 800 [facility] [address] [place] [address] 10/14/2024 4:30 PM EDT Appointment [facility] H Infusion 800 [place] [address] 10/15/2024 2:00 PM EDT Appointment [facility] Infusion 800 [place] [address] 10/16/2024 2:00 PM EDT Appointment [facility] Infusion 800 [place] [address] 10/18/2024 1:00 PM EDT Appointment [facility] 2 7[address] [place] [address] 10/19/2024 1:00 PM EDT Appointment [facility] 2 744 [place] [address] 10/20/2024 3:30 PM EDT Appointment [facility] Infusion 800 [place] [address] 10/21/2024 4:30 PM EDT Appointment [facility] 2 [address] [place] [address] documented as of this encounter Visit Diagnoses Not on filedocumented in this encounter Additional Health Concerns Assessment Noted Time A fall risk assessment has been complete d for the patient 07/30/2024 8:29 AM EDT A Body Mass Index follow-up plan has been documented for the patient 05/28/2024 1:52 PM EST documented as of this encounter Care Teams Meteorology Instructor Relationship Specialty Start Date End Date Jevon Vazquez MD [address] [place] [address] #1 #1 [place] [address] PCP - General 03/23/22 documented as of this encounter
--- OUTSIDE RECORDS SUMMARY | 2024-10-10 09:08 | XMS_ITS | Clinical Summary ---
Author Organization [facility] Address [address] [place] [address] Care Team Providers Care Disaster Recovery Analyst Name Role Phone David Vazquez Primary Care Provider [phone] Allergies No known active allergies Medications atorvastatin [...] series) 2025 Medical Devices Implanted Type Area Fence Rider Device Identifier Shelf Expiration Date Model / Serial / Lot Mis Ply Scr 6.5x50mm - [id number] Implanted:Qty : 1 on 01/30/2023 by Ivan Bartholomew MD at [facility] [place] Screw N/A: Spine Lumbar [employer] [id number] / / Mis Ply Scr 6.5x45mm - [id number] Implanted:Qty : 3 on 01/30/2023 by Ivan Bartholomew MD at [facility] [place] Screw N/A: Spine Lumbar [employer] [id number] / / Reline Mas Reduction Screw 7.5x45 - [id number] Implanted:Qty : 2 on 01/30/2023 by Ivan Bartholomew MD at [facility] Screw N/A: Spine Lumbar [employer] [id number] / / Grft Dbm Vesuvius Putty 5cc - [id number] Implanted:Qty : 1 on 01/30/2023 by Ivan Bartholomew MD at [facility] [employer] [id number] 04/20/2025 [id number] P / [id number] / Putty I-Factor 5.0cc - [id number] Implanted:Qty : 1 on 01/30/2023 by Ivan Bartholomew MD at [facility] N/A: Spine Lumbar [employer] 03/15/2025 [id number] / / [id number] Modulus Xlw [id number] 10 Degree - [id number] Implanted:Qty : 1 on 01/30/2023 by Ivan Bartholomew MD at [facility] [place] N/A: Spine Lumbar [employer] [id number] / / [id number] Modulus Xlw [id number] - [id number] Implanted:Qty : 1 on 01/30/2023 by Ivan Bartholomew MD at [facility] [place] N/A: Spine Lumbar [employer] 09/28/2027 [id number] / / [id number] Reln Lock Scr 5.5mm Opn Tulip - [id number] Implanted:Qty : 6 on 01/30/2023 by Ivan Bartholomew MD at [facility] N/A: Spine Lumbar [employer] [id number] / / Reln Mas Ti Petar 5.5x70mm - [id number] Implanted:Qty : 2 on 01/30/2023 by Ivan Bartholomew MD at [facility] N/A: Spine Lumbar [employer] [id number] / / Procedures Procedure Name Priority Date/Time [...] Hgb A1C 6.0(H) 4.0 - 5.6 % [facility] Comment: Reference Ranges for [...] Glycohemoglobin Standardization program (NGSP) and [facility] Estimated Average Glucose 126(H) 68 - 114 mg/dL [facility] Whole Blood (Blood) 01/24/2023 2:32 PM EDT 01/24/2023 6:00 PM EDT us Ivan Bartholomew MD CHEMISTRY ORDERABLES Fin al Result [facility] [address] * (ABNORMAL) BASIC METABOLIC PANEL (BMP=EP1) (01/24/2023 2:32 PM EDT) Sodium 141 135 - 146 mmol/L [facility] Potassium 4.8 3.5 - 5.1 mmol/L [facility] Chloride 107 98 - 110 mmol/L [facility] CO2 24 22 - 29 mmol/L [facility] Anion Gap 10 5 - 13 mmol/L [facility] Comment:Anion gap calculatio n does not include potassium (K+) value. BUN 17 7 - 25 mg/dL [facility] Creatinine 1.20 0.50 - 1.20 mg/dL [facility] Glucose 125(H) 71 - 99 mg/dL [facility] Comment:Reference range (71- 99 mg/dL) refers only to fasting samples, and does not apply to non-fasting samples. eGFR CKD-EPI 2020 48 See Note [facility] Comment: eGFR calculated with 2020 CKD-EPI equation using creatinine, patient's age and gender. Other factors, especially muscle mass, may affect accuracy and need to be considered. Patient values should be interpreted as a trend. The reference interval is >60 mL/min/1.73m2. Calcium 10.3 8.5 - 10.5 mg/dL [facility] BUN/Creatinine Ratio 14 [facility] Serum 01/24/2023 2:32 PM EDT 01/24/2023 5:54 PM EDT us Lexi SUAREZ CHEMISTRY ORDERABLES Final Resu lt [facility] [address] from Last 3 Months or Most Recently Relevant to Health Maintenance Insurance MEDICARE PART A [facility] [address] [address] [place] [address] ANTH Advance Directives For more information, please contact: [phone] * Full Code (Latest Code Status on File) Date Activated Date Inactivated Comments 01/30/2023 9:13 AM No automated chest compression devices for [facility] Patients Care Teams Disaster Recovery Analyst Relationship Specialty Start Date End Date David Vazquez [address] [place] [id number] PCP - General 01/24/23
--- OUTSIDE RECORDS SUMMARY | 2024-10-10 09:08 | XMS_ITS | Encounter Summary ---
Author Organization Healthcare Address [address] [place] [address] Care Team Providers Care White Sugar Pan Tank Operator Name Role Phone Jevon Vazquez MD Primary Care Provider [phone] Encounter Details Date Type Department Care Team [...] Hematology/BMT and Cellular Therapy Program [address] [address] 10/14/2024 11:30 AM EDT Office Visit [facility] Hematology/BMT and Cellular Therapy Program [address] [address] Zonia Hoffman, RODDY 800 [facility] [address] [place] [address] 10/14/2024 4:30 PM EDT Appointment [facility] H Infusion 800 [place] [address] 10/15/2024 2:00 PM EDT Appointment [facility] Infusion [address] [place] [address] 10/16/2024 2:00 PM EDT Appointment [facility] Infusion [address] [place] [address] 10/18/2024 1:00 PM EDT Appointment [facility] 2 [address] [place] [address] 10/19/2024 1:00 PM EDT Appointment [facility] 2 [address] [place] [address] 10/20/2024 3:30 PM EDT Appointment [facility] Infusion 800 [place] [address] 10/21/2024 4:30 PM EDT Appointment [facility] 2 [address] [place] [address] documented as of this encounter Visit Diagnoses Not on filedocumented in this encounter Additional Health Concerns Assessment Noted Time A fall risk assessment has been complete d for the patient 07/30/2024 8:29 AM EDT A Body Mass Index follow-up plan has been documented for the patient 05/28/2024 1:52 PM EST documented as of this encounter Care Teams White Sugar Pan Tank Operator Relationship Specialty Start Date End Date Jevon Vazquez MD [address] [place] [address] #1 #1 [place] [address] PCP - General 03/23/22 documented as of this encounter
--- OUTSIDE RECORDS SUMMARY | 2024-10-10 09:08 | XMS_ITS | Encounter Summary ---
Author Organization Healthcare Address [address] [place] [address] Care Team Providers Care Contract Technical Writer Name Role Phone Jevon Vazquez MD Primary Care Provider [phone] Encounter Details Date Type Department Care Team [...] Hematology/BMT and Cellular Therapy Program [address] [address] 10/14/2024 11:30 AM EDT Office Visit [facility] Hematology/BMT and Cellular Therapy Program [address] [address] Zonia Hoffman, RODDY 800 [facility] [address] [place] [address] 10/14/2024 4:30 PM EDT Appointment [facility] Infusion 800 [place] [address] 10/15/2024 2:00 PM EDT Appointment [facility] [address] [place] [address] 10/16/2024 2:00 PM EDT Appointment [facility] [address] [place] [address] 10/18/2024 1:00 PM EDT Appointment [facility] 2 7[address] [place] [address] 10/19/2024 1:00 PM EDT Appointment [facility] 2 [address] [place] [address] 10/20/2024 3:30 PM EDT Appointment [facility] 800 [place] [address] 10/21/2024 4:30 PM EDT Appointment [facility] 2 [address] [place] [address] documented as of this encounter Visit Diagnoses Not on filedocumented in this encounter Additional Health Concerns Assessment Noted Time A fall risk assessment has been complete d for the patient 07/30/2024 8:29 AM EDT A Body Mass Index follow-up plan has been documented for the patient 05/28/2024 1:52 PM EST documented as of this encounter Care Teams Contract Technical Writer Relationship Specialty Start Date End Date Jevon Vazquez MD [address] [place] [address] #1 #1 [place] [address] PCP - General 03/23/22 documented as of this encounter
--- OUTSIDE RECORDS SUMMARY | 2024-10-10 09:08 | XMS_ITS | Clinical Summary ---
Author Organization [facility] Address [address] 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) 10/07/2024 Travel 09/30/2024 9:30 AM EDT Office Visit [facility] Hematology/BMT and Cellular Therapy Program [address] [place] [address] [phone] Zonia Hoffman APRN 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) 09/30/2024 9:00 AM EDT Clinical Support [facility] Hematology[facility]BMT and Cellular Therapy Program [address] [place] [phone] Jyoti Kemp 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) 09/30/2024 Telephone [facility] Hematology/BMT and Cellular Therapy Program [address] [place] [address] [place] [address] Zoraida Good, RN 09/30/2024 Travel 09/29/2024 Travel 09/28/2024 Travel 09/27/2024 Travel 09/26/2024 Travel 09/25/2024 Travel 09/24/2024 Travel 09/23/2024 Travel 09/19/2024 12:00 PM EDT Procedure Visit [facility] Hematology/BMT and Cellular Therapy Program 750 [facility], [address] [place] [address] [phone] Lexi Ferraro, FELTMAKER 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) 09/19/2024 9:30 AM EDT Clinical Support [facility] [address] [facility], [address]nd [place] [address] 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) 09/19/2024 7:30 AM EDT Clinical Support [facility] Hematology/BMT and Cellular Therapy Program 750 [facility], [address] [place] [address] [phone] 09/19/2024 Telephone [facility] Hematology/BMT and Cellular Therapy Program 750 [facility], [address] [place] [phone] Romana Richmond, RN 09/19/2024 Orders Only [facility] Hematology/BMT and Cellular Therapy Program 750 [facility], [address] [place] [phone] 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, RN 09/19/2024 Travel 09/15/2024 Telephone [facility] Hematology/BMT and Cellular Therapy Program 750 [facility], [address] [place] [address] [phone] Zonia Hoffman APRN 09/15/2024 Travel 09/14/2024 Travel 09/13/2024 Travel 09/12/2024 Travel 09/12/2024 Refill [facility] Hematology/BMT and Cellular Therapy Program 750 [facility], [address] [place] [phone] New Mckinney MD 09/11/2024 Travel 09/10/2024 Travel 09/01/2024 Telephone [facility] Hematology/BMT and Cellular Therapy Program [address] [phone] Zonia Hoffman, FELTMAKER 08/31/2024 Travel 08/30/2024 Travel 08/18/2024 Telephone [facility] Hematology/BMT and Cellular Therapy Program [address] [phone] Romana Gorman, FELTMAKER 08/17/2024 Travel 08/16/2024 Travel 08/15/2024 Travel 08/13/2024 Travel 07/30/2024 8:30 AM EDT Office Visit [facility] Hematology/BMT and Cellular Therapy Program [address] [phone] Zonia Hoffman, FELTMAKER Pancytopenia (Primary Dx) 07/30/2024 8:00 AM EDT Clinical Support [facility] Hematology/BMT and Cellular Therapy Program [address] [phone] Pancytopenia 07/30/2024 Telephone [facility] Hematology/BMT and Cellular Therapy Program [address] [place] [phone] Romana Richmond RN 07/30/2024 Refill [facility] Hematology/BMT and Cellular Therapy Program [address] [place] [phone] Daxa Elliott, gas brazer 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); Immunosuppressed status (CMS/HCC) 07/30/2024 Travel 07/29/2024 Travel 07/28/2024 Travel 07/27/2024 Travel 07/26/2024 Travel 07/24/2024 Travel 07/23/2024 Travel 07/19/2024 Refill [facility] Hematology/BMT and Cellular Therapy Program [address] [phone] Zonia Hoffman, FELTMAKER 07/16/2024 9:00 AM EDT Office Visit [facility] Hematology/BMT and Cellular Therapy Program [address] [place] [address] Zonia Hoffman, FELTMAKER Pancytopenia (Primary Dx); 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) 07/16/2024 8:30 AM EDT Clinical Support [facility] Hematology/BMT and Cellular Therapy Program 750 [facility], [address] [place] [address] [place] [address] 07/16/2024 Travel 07/15/2024 Travel 07/15/2024 Telephone [facility] Hematology/BMT and Cellular Therapy Program 750 [facility], [address] [place] [address] [place] [address] Zonia Hoffman APRN 07/14/2024 Travel 07/13/2024 Travel 07/12/2024 Travel 07/11/2024 Travel 07/10/2024 Travel from Last 3 Months Immunizations Immunization [...] [facility] Hematology/BMT [facility] Cellular Therapy Program [address] [phone] 10/14/2024 11:30 AM EDT Office Visit [facility] Hematology/BMT and Cellular Therapy Program 750 [facility], [address] [place] [phone] Zonia Hoffman, FELTMAKER 800 [facility] [address] [place] [phone] 10/14/2024 4:30 PM EDT Appointment [facility] Infusion [address] [place] [address] 10/15/2024 2:00 PM EDT Appointment [facility] [address] [place] [address] 10/16/2024 2:00 PM EDT Appointment [facility] [address] [place] [address] 10/18/2024 1:00 PM EDT Appointment [facility] 2 [address] [place] [address] 10/19/2024 1:00 PM EDT Appointment [facility] 2 [address] [place] [address] 10/20/2024 3:30 PM EDT Appointment [facility] [address] [place] [address] 10/21/2024 4:30 PM EDT Appointment [facility] 2 [address] [place] [address] Health Maintenance Due Date Last Done Comments [...] UKY-Zoster Vaccines (1 of 2) 05/16/2023 03/21/2023 CHO-[id number] Vaccine ( season) 2023 02/18/2021, 07/10/2020, 06/12/2020 [...] this topic Medical Devices Implanted Type Area Window Machine Operator Device Identifier Shelf Expiration Date Model / Serial / Lot Port Clearvue Power 8fr - [id number] Implanted:Qty: 1 on 01/21/2024 by Ness Sargent MD at [facility] Per[facility] Vascular-[id number] / / Procedures Procedure Name Priority Date/Time [...] values, rather than percentages. us Zonia Hoffman FELTMAKER LAB BLOOD ORDERABLES Final Res ult [facility] [address] [place] [address] * (ABNORMAL) Comprehensive Metabolic Panel, Plasma (09/30/2024 [...] Res ult [facility] [address] [place] [address] * BIOPSY BONE MARROW (09/19/2024 12:00 PM [...] to surronding structures. Alternatives discussed: Delayed treatment Carr[place]le protocol: Procedure explained and questions answered to [...] (ABNORMAL) Platelet count (09/19/2024 10:04 AM EDT) Pathologist [facility] Platelet Count 61(L) 155 - 369 10*3/uL LAB HEMATOLOGY METHOD 09/19/2024 10:19 AM EDT [facility] Blood Blood sample taken from central line / Unknown (Port) Long-term Catheter / Unknown 09/19/2024 10:04 AM EDT 09/19/2024 10:18 AM EDT New Mckinney MD LAB BLOOD ORDERABLES Final Re sult [facility] [address] [place] [address] * Transfuse platelets, Irradiated (09/19/2024 10:02 AM EDT) Lexi Ferraro APRN BLOOD TRANSFUSION ORDERABL ES Final Result * Prepare Leukocyte Reduced Platelets (09/19/2024 9:08 AM EDT) Product Code [id number] BLOO D BANK Dispense Status Transfused BLOOD BANK Blood Expiration Date [id number] BLOOD BANK Unit Number [id number] B LOOD BANK Product Blood Type 6200 BLOOD BANK Blood Type A+ BLOOD BANK us Provider Not In System BLOOD BANK PRODUCT ORD ERABLES Final Result BLOOD BANK [address] [place] [address], * Myeloid Focused Panel, 50 gene (09/19/2024 7:29 AM EDT) Interpretation The following two (2) genes, TP53 and DNMT3A, with persistent variants have been detected in this bone marrow specimen. The variant, p.[id number], in TP53 gene and the variant, p.[id number], in the RUNX 1 gene are not detectable at current cutoff and coverage established in this lab. Gene: TP53 Mutation: c.814G>A; p.Qll718Kep Allele Frequency (%): 37% (45% Dec 2023) ID: [id number] Gene: DNMT3A Mutation: c.1522delC; p.Ucj760KmtrbSsq34 3 Allele Frequency (%): 36% (48% Dec 2023) Additional Details on Mutation Identified: Gene Transcript Genome Chrom Coordinate RefVar DNMT3A [id number] Hg19 2 [id number] delC TP53 NM_000546.5 Hg19 17 [id number] G>A 09/29/2024 4:05 PM EDT [facility] [...] then sequenced on the Illumina NextSeq 2000 ([employer] [place]). A custom bioinformatics pipeline aligns [...] of hematologic malignancies. 09/29/2024 4:05 PM EDT [facility] Disclaimer This test was developed and its performance characteristics determined by the Clinical Molecular and Genomic Pathology Laboratory at the [facility]. It has not been cleared or [...] clinical laboratory testing. 09/29/2024 4:05 PM EDT [facility] Pathologist Signature Reviewed by: Corey Tejada 09/29/2024 4:05 PM EDT [facility] Bone Marrow Specimen from bone marrow obtained by aspiration / Unknown Non-blood Collection / Unknown 09/19/2024 7:29 AM EDT 09/19/2024 12:03 PM EDT us New Mckinney MD LAB MOLECULAR DIAGNOSTICS ORD ERABLES Final Result [facility] [address] [place] [address], * Chromosome Karyotype, Oncology (09/19/2024 7:29 AM [...] MD LAB CYTOGENETICS ORDERABLES F inal Result [facility] [address] [place] [address] * Leukemia/Lymphoma - Immunophenotyping by Flow Cytometry [...] 09/22/2024 10:29 AM EDT [facility] Disclaimer This test was developed and its performance characteristics determined by the Immuno-Molecular Pathology Laboratory at the [facility]. It has not been cleared or [...] on the report. 09/22/2024 10:29 AM EDT [facility] Pathologist Signature [...] MD LAB FLOW CYTOMETRY ORDERABLES Final Result [facility] [address] [place] [address] * Bone marrow exam (09/19/2024 7:29 AM EDT) Case Report Bone Marrow Case: [id number] Authorizing Provider: New Mckinney MD Collected: 09/19/2024 0729 Ordering Location: [facility] Hematology/BMT and Received: 09/19/2024 1216 Cellular Therapy Program Pathologist: Lisandra Epstein MD Specimens: A) - Bone Marrow Aspirate, right B) - Bone Marrow Biopsy, right C) - Peripheral Blood for Bone Marrow 3:15 PM EDT [facility] Cytogenetics Report, Addendum Chromosome [...] in this bone marrow specimen. The variant, p.Usk709Pft, in TP53 gene and the variant, p.Tmc095prc, in the RUNX 1 gene are not detectable at current cutoff and coverage established in this lab. Gene: TP53 Mutation: c.814G>A; p.Zmy103Fdd Allele Frequency (%): 37% (45% Dec 2023) ID: [id number] Gene: DNMT3A Mutation: c.1522delC; p.Hsx830JnxgtOau4 43 Allele Frequency (%): 36% (48% Dec [...] blasts are not seen. 3:15 PM EDT [facility] Bone Marrow Differential BONE MARROW DIFFERENTIAL: 200 cells Normal Patient Neutrophils 15-50 34 Metamyelocytes 4-19 3 Myelocytes 1-18 10 Promyelocytes 1-8 1 Blasts 0-2 1 Monocytes 0-5 4 Erythroid 16-38 22 Lymphocytes 3-24 13 Eosinophils 0-6 8 Basophils 0-2 0 Plasma cells 0-4 4 Other 3:15 PM EDT [facility] Bone Marrow Aspirate and [...] Bone trabeculae are unremarkable. 3:15 PM EDT [facility] Special and Immunohistochemical Stains Special Stain: A1-1 Vazquez-Giemsa A1-2 Vazquez-Giemsa A1-3 Vazquez-Giemsa C1-1 Vazquez-Giemsa IHC: B1-2 CD34 All controls show appropriate reactivity. All immunohistochemis try, in situ hybridization, and histochemical tests were developed by and are performed at the [facility], [address] [place] [address]. All tests reported here, except those addressing [...] OF INCREASED BLASTS OR ABNORMAL LYMPHOID POPULATIONS ([id number]). 3:15 PM EDT [facility] [...] - Final [facility] [address] [place] [address] * Hepatitis C Antibody w/Reflex to HCV Quant PCR (01/07/2024 8:42 AM EDT) Hepatitis C Antibody Negative Negative 01/07/2024 10:13 AM EDT [facility] Blood Venous blood specimen / Unknown Venipuncture / Unknown 01/07/2024 8:42 AM EDT 01/07/2024 9:25 AM EDT us New Mckinney MD LAB BLOOD ORDERABLES Final Re sult [facility] [address] [place] [address] from Last 3 Months or Most Recently Relevant to Health Maintenance Insurance MEDICARE [facility] Care Teams Waist Presser Relationship Specialty Start Date End Date Jevon Vazquez MD [address] [place] [address] #1 #1 [place] [address] PCP - General 03/23/22
--- OUTSIDE RECORDS SUMMARY | 2024-10-10 09:08 | XMS_ITS | Encounter Summary ---
Author Organization Healthcare Address [address] [place] [address] Care Team Providers Care Quantitative Analyst Developer Name Role Phone Jevon Vazquez MD Primary Care Provider [phone] Encounter Details Date Type Department Care Team [...] Hematology/BMT and Cellular Therapy Program [address] [phone] 10/14/2024 11:30 AM EDT Office Visit [facility] Hematology/BMT and Cellular Therapy Program [address] [phone] Zonia Hoffman, RODDY 800 [facility] [address] [place] [phone] 10/14/2024 4:30 PM EDT Appointment [facility] [address] [place] [address] 10/15/2024 2:00 PM EDT Appointment [facility] [address] [place] [address] 10/16/2024 2:00 PM EDT Appointment [facility] [address] [place] [address] 10/18/2024 1:00 PM EDT Appointment [facility] 2 [address] [place] [address] 10/19/2024 1:00 PM EDT Appointment [facility] 2 [address] [place] [address] 10/20/2024 3:30 PM EDT Appointment [facility] [address] [place] [address] 10/21/2024 4:30 PM EDT Appointment [facility] 2 [address] [place] [address] documented as of this encounter Visit Diagnoses Not on filedocumented in this encounter Additional Health Concerns Assessment Noted Time A fall risk assessment has been complete d for the patient 09/19/2024 8:38 AM EDT A Body Mass Index follow-up plan has been documented for the patient 05/28/2024 1:52 PM EST documented as of this encounter Care Teams Quantitative Analyst Developer Relationship Specialty Start Date End Date Jevon Vazquez MD [address] [place] [address] #1 #1 [place] [id number] PCP - General 03/23/22 documented as of this encounter
--- OUTSIDE RECORDS SUMMARY | 2024-10-10 09:08 | XMS_ITS | Encounter Summary ---
Author Organization Healthcare Address [address] [place] [address] Care Team Providers Care Red Cross Worker Name Role Phone Jevon Vazquez MD Primary Care Provider [phone] Encounter Details Date Type Department Care Team (Late Contact Info) Description 09/30/2024 Telephone [facility] Hematology/BMT and Cellular Therapy Program [address] [place] [address] Zoraida Good, RN [facility] Social History Tobacco [...] Hematology/BMT and Cellular Therapy Program [address] [phone] 10/14/2024 11:30 AM EDT Office Visit [facility] CC Hematology/BMT and Cellular Therapy Program [address] [phone] Zonia Hoffman, AUTO BODY REPAIRER FIBERGLASS 800 [facility] [address] [place] [phone] 10/14/2024 4:30 PM EDT Appointment [facility] [address] [place] [address] 10/15/2024 2:00 PM EDT Appointment [facility] [address] [place] [address] 10/16/2024 2:00 PM EDT Appointment [facility] [address] [place] [address] 10/18/2024 1:00 PM EDT Appointment [facility] 2 [address] [place] [address] 10/19/2024 1:00 PM EDT Appointment [facility] 2 [address] [place] [address] 10/20/2024 3:30 PM EDT Appointment [facility] [address] [place] [address] 10/21/2024 4:30 PM EDT Appointment [facility] 2 [address] [place] [address] documented as of this encounter Visit Diagnoses Not on filedocumented in this encounter Additional Health Concerns Assessment Noted Time A fall risk assessment has been complete d for the patient 09/30/2024 9:33 AM EDT A Body Mass Index follow-up plan has been documented for the patient 05/28/2024 1:52 PM EST documented as of this encounter Care Teams Red Cross Worker Relationship Specialty Start Date End Date Jevon Vazquez MD [address] [place] [address] #1 #[address] [place] [address] PCP - General 03/23/22 documented as of this encounter
--- OUTSIDE RECORDS SUMMARY | 2024-10-10 09:08 | XMS_ITS | Encounter Summary ---
Author Organization Healthcare Address [address] [place] [address] Care Team Providers Care Linen Checker Name Role Phone Jevon Vazquez MD Primary Care Provider [phone] Encounter Details Date Type Department Care Team ([facility] st Contact Info) Description 08/18/2024 Telephone [facility] Hematology/BMT and Cellular Therapy Program [address] [phone] Romana Gorman, PRODUCTION CONTROL TECHNOLOGIST 800 [facility] [address] [place] [address] Social History Tobacco Use Types Packs/Day Years [...] to her levels being low Callback number: [phone] documented in this encounter Plan of Treatment Upcoming Encounters Date Type Department Care Team (Late st Contact Info) Description 10/14/2024 11:00 AM EDT Clinical Support [facility] Hematology/BMT and Cellular Therapy Program [address] [phone] 10/14/2024 11:30 AM EDT Office Visit [facility] Hematology/BMT and Cellular Therapy Program [address] [phone] Zonia Hoffman, PRODUCTION CONTROL TECHNOLOGIST 800 [facility] [address] [place] [address] 10/14/2024 4:30 PM EDT Appointment [facility] [address] [place] [address] 10/15/2024 2:00 PM EDT Appointment [facility] [address] [place] [address] 10/16/2024 2:00 PM EDT Appointment [facility] [address] [place] [address] 10/18/2024 1:00 PM EDT Appointment [facility] 2 [address] [place] [address] 10/19/2024 1:00 PM EDT Appointment [facility] 2 [address] [place] [address] 10/20/2024 3:30 PM EDT Appointment [facility] [address] [place] [address] 10/21/2024 4:30 PM EDT Appointment [facility] 2 [address] [place] [address] documented as of this encounter Visit Diagnoses Not on filedocumented in this encounter Additional Health Concerns Assessment Noted Time A fall risk assessment has been complete d for the patient 07/30/2024 8:29 AM EDT A Body Mass Index follow-up plan has been documented for the patient 05/28/2024 1:52 PM EST documented as of this encounter Care Teams Linen Checker Relationship Specialty Start Date End Date Jevon Vazquez MD [address] [place] [address] #1 #1 [place] [address] PCP - General 03/23/22 documented as of this encounter
--- OUTSIDE RECORDS SUMMARY | 2024-10-10 09:08 | XMS_ITS | Encounter Summary ---
Author Organization Healthcare Address [address] [place] [address] Care Team Providers Care Airworthiness Safety Inspector Name Role Phone Jevon Vazquez MD Primary Care Provider [phone] Encounter Details Date Type Department Care Team [...] Hematology/BMT and Cellular Therapy Program [address] [address] 10/14/2024 11:30 AM EDT Office Visit [facility] Hematology/BMT and Cellular Therapy Program [address] [phone] Zonia Hoffman, RODDY 800 [facility] [address] [place] [address] 10/14/2024 4:30 PM EDT Appointment [facility] [address] [place] [address] 10/15/2024 2:00 PM EDT Appointment [facility] [address] [place] [address] 10/16/2024 2:00 PM EDT Appointment [facility] [address] [place] [address] 10/18/2024 1:00 PM EDT Appointment [facility] 2 [address] [place] [address] 10/19/2024 1:00 PM EDT Appointment [facility] 2 [address] [place] [address] 10/20/2024 3:30 PM EDT Appointment [facility] [address] [place] [address] 10/21/2024 4:30 PM EDT Appointment [facility] 2 [address] [place] [address] documented as of this encounter Visit Diagnoses Not on filedocumented in this encounter Additional Health Concerns Assessment Noted Time A fall risk assessment has been complete d for the patient 07/30/2024 8:29 AM EDT A Body Mass Index follow-up plan has been documented for the patient 05/28/2024 1:52 PM EST documented as of this encounter Care Teams Airworthiness Safety Inspector Relationship Specialty Start Date End Date Jevon Vazquez MD [address] [place] [address] #1 #1 [place] [address] PCP - General 03/23/22 documented as of this encounter
--- OUTSIDE RECORDS SUMMARY | 2024-10-10 09:08 | XMS_ITS | Encounter Summary ---
Author Organization Healthcare Address [address] [place] [address] Care Team Providers Care Washer And Capper Machine Operator Name Role Phone Jevon Vazquez MD Primary Care Provider [phone] Encounter Details Date Type Department Care Team [...] Hematology/BMT and Cellular Therapy Program [address] [phone] 10/14/2024 11:30 AM EDT Office Visit [facility] Hematology/BMT and Cellular Therapy Program [address] [address] Zonia Hoffman, RODDY 800 [facility] [address] [place] [address] 10/14/2024 4:30 PM EDT Appointment [facility] [address] [place] [address] 10/15/2024 2:00 PM EDT Appointment [facility] [address] [place] [address] 10/16/2024 2:00 PM EDT Appointment [facility] [address] [place] [address] 10/18/2024 1:00 PM EDT Appointment [facility] 2 [address] [place] [address] 10/19/2024 1:00 PM EDT Appointment [facility] 2 [address] [place] [address] 10/20/2024 3:30 PM EDT Appointment [facility] [address] [place] [address] 10/21/2024 4:30 PM EDT Appointment [facility] 2 [address] [place] [address] documented as of this encounter Visit Diagnoses Not on filedocumented in this encounter Additional Health Concerns Assessment Noted Time A fall risk assessment has been complete d for the patient 09/30/2024 9:33 AM EDT A Body Mass Index follow-up plan has been documented for the patient 05/28/2024 1:52 PM EST documented as of this encounter Care Teams Washer And Capper Machine Operator Relationship Specialty Start Date End Date Jevon Vazquez MD [address] [place] [address] #1 #1 [place] [address] PCP - General 03/23/22 documented as of this encounter
--- OUTSIDE RECORDS SUMMARY | 2024-10-10 09:08 | XMS_ITS | Encounter Summary ---
Author Organization Healthcare Address [address] [place] [address] Care Team Providers Care Rn Admit Name Role Phone Jevon Vazquez MD Primary Care Provider [phone] Encounter Details Date Type Department Care Team [...] Hematology/BMT and Cellular Therapy Program [address] [address] 10/14/2024 11:30 AM EDT Office Visit [facility] Hematology/BMT and Cellular Therapy Program [address] [address] Zonia Hoffman, RODDY 800 [facility] [address] [place] [address] 10/14/2024 4:30 PM EDT Appointment [facility] 800 [place] [address] 10/15/2024 2:00 PM EDT Appointment [facility] 800 [place] [address] 10/16/2024 2:00 PM EDT Appointment [facility] 800 [place] [address] 10/18/2024 1:00 PM EDT Appointment [facility] 2 [address] [place] [address] 10/19/2024 1:00 PM EDT Appointment [facility] 2 744 [place] [address] 10/20/2024 3:30 PM EDT Appointment [facility] 800 [place] [address] 10/21/2024 4:30 PM EDT Appointment [facility] 2 [address] [place] [address] documented as of this encounter Visit Diagnoses Not on filedocumented in this encounter Additional Health Concerns Assessment Noted Time A fall risk assessment has been complete d for the patient 07/30/2024 8:29 AM EDT A Body Mass Index follow-up plan has been documented for the patient 05/28/2024 1:52 PM EST documented as of this encounter Care Teams Rn Admit Relationship Specialty Start Date End Date Jevon Vazquez MD [address] [place] [address] #1 [address]1 [place] [address] PCP - General 03/23/22 documented as of this encounter
--- OUTSIDE RECORDS SUMMARY | 2024-10-10 09:08 | XMS_ITS | Encounter Summary ---
Author Organization Healthcare Address [address] [place] [address] Care Team Providers Care Head Gauge Unit Operator Name Role Phone Jevon Vazquez MD Primary Care Provider [phone] Encounter Details Date Type Department Care Team [...] Hematology/BMT and Cellular Therapy Program [address] [address] 10/14/2024 11:30 AM EDT Office Visit [facility] Hematology/BMT and Cellular Therapy Program [address] [address] Zonia Hoffman, RODDY 800 [facility] [address] [place] [address] 10/14/2024 4:30 PM EDT Appointment [facility] Infusion 800 [place] [address] 10/15/2024 2:00 PM EDT Appointment [facility] 800 [place] [address] 10/16/2024 2:00 PM EDT Appointment [facility] 800 [place] [address] 10/18/2024 1:00 PM EDT Appointment [facility] 2 [address] [place] [address] 10/19/2024 1:00 PM EDT Appointment [facility] 2 [address] [place] [address] 10/20/2024 3:30 PM EDT Appointment [facility] 800 [place] [address] 10/21/2024 4:30 PM EDT Appointment [facility] 2 [address] [place] [address] documented as of this encounter Visit Diagnoses Not on filedocumented in this encounter Additional Health Concerns Assessment Noted Time A fall risk assessment has been complete d for the patient 07/30/2024 8:29 AM EDT A Body Mass Index follow-up plan has been documented for the patient 05/28/2024 1:52 PM EST documented as of this encounter Care Teams Head Gauge Unit Operator Relationship Specialty Start Date End Date Jevon Vazquez MD [address] [place] [address] #1 #1 [place] [address] PCP - General 03/23/22 documented as of this encounter
--- OUTSIDE RECORDS SUMMARY | 2024-10-10 09:08 | XMS_ITS | Encounter Summary ---
Author Organization Healthcare Address [address] [place] [address] Care Team Providers Care E D Tech Name Role Phone Jevon Vazquez MD Primary Care Provider [phone] Encounter Details Date Type Department Care Team [...] Hematology/BMT and Cellular Therapy Program [address] [address] 10/14/2024 11:30 AM EDT Office Visit [facility] Hematology/BMT and Cellular Therapy Program [address] [address] Zonia Hoffman, RODDY 800 [facility] [address] [place] [address] 10/14/2024 4:30 PM EDT Appointment [facility]fusion 800 [place] [address] 10/15/2024 2:00 PM EDT Appointment [facility] 800 [place] [address] 10/16/2024 2:00 PM EDT Appointment [facility] 800 [place] [address] 10/18/2024 1:00 PM EDT Appointment [facility] 2 [address] [place] [address] 10/19/2024 1:00 PM EDT Appointment [facility] 2 [address] [place] [address] 10/20/2024 3:30 PM EDT Appointment [facility] 800 [place] [address] 10/21/2024 4:30 PM EDT Appointment [facility] 2 [address] [place] [address] documented as of this encounter Visit Diagnoses Not on filedocumented in this encounter Additional Health Concerns Assessment Noted Time A fall risk assessment has been complete d for the patient 09/19/2024 8:38 AM EDT A Body Mass Index follow-up plan has been documented for the patient 05/28/2024 1:52 PM EST documented as of this encounter Care Teams E D Tech Relationship Specialty Start Date End Date Jevon Vazquez MD [address] [place] [address] #1 #1 [place] [address] PCP - General 03/23/22 documented as of this encounter
--- OUTSIDE RECORDS SUMMARY | 2024-10-10 09:08 | XMS_ITS | Encounter Summary ---
Author Organization Healthcare Address [address] [place] [address] Care Team Providers Care Aircraft Pneudraulics Repairer Name Role Phone Jevon Vazquez MD Primary Care Provider [phone] Encounter Details Date Type Department Care Team ([facility] st Contact Info) Description 07/15/2024 Telephone [facility] Hematology/BMT and Cellular Therapy Program [address] [address] Zonia Hoffman, BAKERY SALES CLERK 800 [facility] [address] [place] [address] Social History Tobacco Use Types Packs/Day Years [...] for Call: Per PT call to [facility], fabiana Hoffman appt clarity, asking to have Jorge from clinical care team. Best contact number and optimal time of day to reach caller: [phone] Note: Please do not reply to this [...] Upcoming Encounters Date Type Department Care Team ([facility] st Contact Info) Description 10/14/2024 11:00 AM EDT Clinical Support [facility] Hematology/BMT and Cellular Therapy Program [address] [place] [address] 10/14/2024 11:30 AM EDT Office Visit [facility] Hematology/BMT and Cellular Therapy Program [address] [address] Zonia Hoffman, RODDY 800 [facility] [address] [place] [address] 10/14/2024 4:30 PM EDT Appointment [facility]fusion 800 [place] [address] 10/15/2024 2:00 PM EDT Appointment [facility] 800 [place] [address] 10/16/2024 2:00 PM EDT Appointment [facility] 800 [place] [address] 10/18/2024 1:00 PM EDT Appointment [facility] 2 744 [place] [address] 10/19/2024 1:00 PM EDT Appointment [facility] 2 744 [place] [address] 10/20/2024 3:30 PM EDT Appointment [facility] 800 [place] [address] 10/21/2024 4:30 PM EDT Appointment [facility] 2 744 [place] [address] documented as of this encounter Visit Diagnoses Not on filedocumented in this encounter Additional Health Concerns Assessment Noted Time A fall risk assessment has been complete d for the patient 06/18/2024 10:22 AM EST A Body Mass Index follow-up plan has been documented for the patient 05/28/2024 1:52 PM EST documented as of this encounter Care Teams Aircraft Pneudraulics Repairer Relationship Specialty Start Date End Date Jevon Vazquez MD [address] [place] [address] #1 #1 [place] [address] PCP - General 03/23/22 documented as of this encounter
--- OUTSIDE RECORDS SUMMARY | 2024-10-10 09:08 | XMS_ITS | Encounter Summary ---
Author Organization [facility] Address [address] [place] [address] Care Team Providers Care Wood Carver Hand Name Role Phone Jevon Vazquez MD Primary Care Provider [phone] Reason for Visit * Reason Comments Med Refill Encounter Details Date Type Department Care Team ([facility] Contact Info) Description 09/12/2024 Refill [facility] Hematology/BMT and Cellular Therapy Program [address] [phone] New Mckinney MD 800 [facility] [address] [place] [address] Social History Tobacco Use Types Packs/Day Years [...] Team ([facility] Contact Info) Description 10/14/2024 11:00 AM EDT Clinical Support [facility] Hematology/BMT and Cellular Therapy Program [address] [phone] 10/14/2024 11:30 AM EDT Office Visit [facility] Hematology/BMT and Cellular Therapy Program [address] [address] Zonia Hoffman, PARTY SUPPLY SPECIALIST 800 [facility] [address] [place] [address] 10/14/2024 4:30 PM EDT Appointment [facility] 800 [place] [address] 10/15/2024 2:00 PM EDT Appointment [facility] 800 [place] [address] 10/16/2024 2:00 PM EDT Appointment [facility] 800 [place] [address] 10/18/2024 1:00 PM EDT Appointment [facility] 2 [address] [place] [address] 10/19/2024 1:00 PM EDT Appointment [facility] 2 [address] [place] [address] 10/20/2024 3:30 PM EDT Appointment [facility] [address] [place] [address] 10/21/2024 4:30 PM EDT Appointment [facility] 2 [address] [place] [address] documented as of this encounter Visit Diagnoses Not on filedocumented in this encounter Additional Health Concerns Assessment Noted Time A fall risk assessment has been complete d for the patient 07/30/2024 8:29 AM EDT A Body Mass Index follow-up plan has been documented for the patient 05/28/2024 1:52 PM EST documented as of this encounter Care Teams Wood Carver Hand Relationship Specialty Start Date End Date Jevon Vazquez MD [address] [place] [address] #1 #1 [place] [address] PCP - General 03/23/22 documented as of this encounter
--- OUTSIDE RECORDS SUMMARY | 2024-10-10 09:08 | XMS_ITS | Encounter Summary ---
Author Organization Healthcare Address [address] [place] [address] Care Team Providers Care Linderman Operator Name Role Phone Jevon Vazquez MD Primary Care Provider [phone] Encounter Details Date Type Department Care Team [...] Hematology/BMT and Cellular Therapy Program [address] [address] 10/14/2024 11:30 AM EDT Office Visit [facility] Hematology/BMT and Cellular Therapy Program [address] [address] Zonia Hoffman, RODDY 800 [facility] [address] [place] [address] 10/14/2024 4:30 PM EDT Appointment [facility]fusion 800 [place] [address] 10/15/2024 2:00 PM EDT Appointment [facility] 800 [place] [address] 10/16/2024 2:00 PM EDT Appointment [facility] [address] [place] [address] 10/18/2024 1:00 PM EDT Appointment [facility] 2 [address] [place] [address] 10/19/2024 1:00 PM EDT Appointment [facility] 2 [address] [place] [address] 10/20/2024 3:30 PM EDT Appointment [facility] [address] [place] [address] 10/21/2024 4:30 PM EDT Appointment [facility] 2 [address] [place] [address] documented as of this encounter Visit Diagnoses Not on filedocumented in this encounter Additional Health Concerns Assessment Noted Time A fall risk assessment has been complete d for the patient 07/30/2024 8:29 AM EDT A Body Mass Index follow-up plan has been documented for the patient 05/28/2024 1:52 PM EST documented as of this encounter Care Teams Linderman Operator Relationship Specialty Start Date End Date Jevon Vazquez MD [address] [place] [address] #1 #1 [place] [address] PCP - General 03/23/22 documented as of this encounter
--- OUTSIDE RECORDS SUMMARY | 2024-10-10 09:08 | XMS_ITS | Encounter Summary ---
Author Organization Healthcare Address [address] [place] [address] Care Team Providers Care Roustabout Crew Leader Name Role Phone Jevon Vazquez MD Primary Care Provider [phone] Encounter Details Date Type Department Care Team [...] Hematology/BMT and Cellular Therapy Program [address] [address] 10/14/2024 11:30 AM EDT Office Visit [facility] Hematology/BMT and Cellular Therapy Program [address] [address] Zonia Hoffman, RODDY 800 [facility] [address] [place] [address] 10/14/2024 4:30 PM EDT Appointment [facility] Infusion 800 [place] [address] 10/15/2024 2:00 PM EDT Appointment [facility] 800 [place] [address] 10/16/2024 2:00 PM EDT Appointment [facility]fusion 800 [place] [address] 10/18/2024 1:00 PM EDT Appointment [facility] 2 [address] [place] [address] 10/19/2024 1:00 PM EDT Appointment [facility] 2 [address] [place] [address] 10/20/2024 3:30 PM EDT Appointment [facility]fusion 800 [place] [address] 10/21/2024 4:30 PM EDT Appointment [facility] 2 [address] [place] [address] documented as of this encounter Visit Diagnoses Not on filedocumented in this encounter Additional Health Concerns Assessment Noted Time A fall risk assessment has been complete d for the patient 07/30/2024 8:29 AM EDT A Body Mass Index follow-up plan has been documented for the patient 05/28/2024 1:52 PM EST documented as of this encounter Care Teams Roustabout Crew Leader Relationship Specialty Start Date End Date Jevon Vazquez MD [address] [place] [address] #1 #1 [place] [address] PCP - General 03/23/22 documented as of this encounter
--- OUTSIDE RECORDS SUMMARY | 2024-10-10 09:08 | XMS_ITS | Encounter Summary ---
Author Organization [facility] Address [address] [place] [address] Care Team Providers Care Trace Evidence Technician Name Role Phone Jevon Vazquez MD Primary Care Provider [phone] Encounter Details Date Type Department Care Team ([facility] Contact Info) Description 10/08/2024 Orders Only [facility] Hematology/BMT and Cellular Therapy Program [address] [phone] 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, RN [facility] HEMATOLOGY PROGRAM CLINIC Acute [...] Team ([facility] Contact Info) Description 10/14/2024 11:00 AM EDT Clinical Support [facility] Hematology/BMT and Cellular Therapy Program [address] [address] 10/14/2024 11:30 AM EDT Office Visit [facility] Hematology/BMT and Cellular Therapy Program [address] [address] Zonia Hoffman, ACID REMOVER 800 [facility] [address] [place] [address] 10/14/2024 4:30 PM EDT Appointment [facility] Infusion 800 [place] [address] 10/15/2024 2:00 PM EDT Appointment [facility] Infusion 800 [place] [address] 10/16/2024 2:00 PM EDT Appointment [facility] Infusion 800 [place] [address] 10/18/2024 1:00 PM EDT Appointment [facility] 2 [address] [place] [address] 10/19/2024 1:00 PM EDT Appointment [facility] 2 [address] [place] [address] 10/20/2024 3:30 PM EDT Appointment [facility] [address] [place] [address] 10/21/2024 4:30 PM EDT Appointment [facility] 2 [address] [place] [address] Scheduled Orders Name Type Priority Associated Diagnoses Orde r Schedule CBC and Differential Lab Routine 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
--- OUTSIDE RECORDS SUMMARY | 2024-10-10 09:08 | XMS_ITS | Encounter Summary ---
Author Organization Healthcare Address [address] [place] [address] Care Team Providers Care Patient Service Technician Pst Name Role Phone Jevon Vazquez MD Primary Care Provider [phone] Encounter Details Date Type Department Care Team [...] Hematology/BMT and Cellular Therapy Program [address] [address] 10/14/2024 11:30 AM EDT Office Visit [facility] Hematology/BMT and Cellular Therapy Program [address] [address] Zonia Hoffman, RODDY 800 [facility] [address] [place] [address] 10/14/2024 4:30 PM EDT Appointment [facility] Infusion 800 [place] [address] 10/15/2024 2:00 PM EDT Appointment [facility]fusion [address] [place] [address] 10/16/2024 2:00 PM EDT Appointment [facility] [address] [place] [address] 10/18/2024 1:00 PM EDT Appointment [facility] 2 [address] [place] [address] 10/19/2024 1:00 PM EDT Appointment [facility] 2 [address] [place] [address] 10/20/2024 3:30 PM EDT Appointment [facility] [address] [place] [address] 10/21/2024 4:30 PM EDT Appointment [facility] 2 [address] [place] [address] documented as of this encounter Visit Diagnoses Not on filedocumented in this encounter Additional Health Concerns Assessment Noted Time A fall risk assessment has been complete d for the patient 07/30/2024 8:29 AM EDT A Body Mass Index follow-up plan has been documented for the patient 05/28/2024 1:52 PM EST documented as of this encounter Care Teams Patient Service Technician Pst Relationship Specialty Start Date End Date Jevon Vazquez MD [address] [place] [address] #1 #1 [place] [address] PCP - General 03/23/22 documented as of this encounter
[2024-10-10 09:21] LABS: Basophils % 0.4 % (0.1-2.0); Eosinophils # 0.1 Kmm3 (0.0-0.4); Eosinophils % 2.2 % (0.1-12.0); Hematocrit 25.8 % (37.0-47.0); Immature Granulocytes # 0 10^3uL; Immature Granulocytes % 0 %; Lymphocytes % 43.9 % (10-50); Mean Corpuscular HGB Conc 34.9 g/dL (31.8-35.4); Mean Corpuscular Hemoglobin 38.5 pg (27.0-31.2); Mean Corpuscular Volume 110.3 fl (81-99); Mean Platelet Volume 10.1 fl (7.4-10.4); Monocytes # 0.2 K/mm3 (0.1-1.0); Neutrophils # 1.1 K/mm3 (1.8-7.8); Neutrophils % 46.5 % (37.0-80.0); Nucleated Red Blood Cells # 0 10^3/uL; Nucleated Red Blood Cells % 0 %; Red Blood Count 2.34 M/mm3 (4.20-5.40); Red Cell Distribution Width 19.3 % (11.5-17.5); Red Cell Distribution Width-SD 74.6 fL; White Blood Count 2.3 K/mm3 (4.8-10.8)
[2024-10-10 09:25] LABS: Albumin Level 3.8 g/dl (3.5-5.0); Chloride 104 mmol/L (98-107); Potassium 3.9 mmoL/L (3.5-5.1); Sodium 138 mmol/L (136-145)
[2024-10-10 09:26] LABS: Platelet Count 12 K/mm3 (142-424)
[2024-10-10 09:28] LABS: Alanine Aminotransferase 14 U/L (12-78); Albumin/Globulin Ratio 1.7 (1.1-1.8); Alkaline Phosphatase 42 U/L (38-126); Anion Gap 12.9 mEq/L (5-15); Aspartate Amino Transferase 36 U/L (14-36); Bilirubin,Total 0.2 mg/dl (0.2-1.3); Blood Urea Nitrogen 22 mg/dl (7-17); Calcium 9.3 mg/dl (8.4-10.2); Carbon Dioxide 25 mmol/L (22.0-30.0); Creatinine Clearance Estimated 46 mL/min (50-200); Estimated Glomerular Filt Rate 61 ml/min (>60); GFR (African American) 74 ML/MIN (>60); Globulin 2.3 g/dL (1.3-3.2); Glucose 134 mg/dl (74-100); Total Protein,Serum 6.1 g/dl (6.3-8.2)
[2024-10-10] MEDS: SODIUM CHLORIDE 0.9% 10ML FLUSH SYRINGE 10 ML IV (09:45)
== END 2024-10-10 09:41 | disposition home or self-care (01) ==
LOC: INF 09:04
PROVIDERS: PCP Family Medicine; Visit Provider Internal Medicine Medical Oncology
DX: C92.00 Acute myeloblastic leukemia, not having achieved remission (principal)
CPT/HCPCS: 36591; 80053; 85025; J1642

== ENCOUNTER 2024-10-13 09:01 | Outpatient (CLI) | payer MEDICARE, BC, SELFPAY ==
--- OUTSIDE RECORDS SUMMARY | 2024-09-19 07:30 | XMS_ITS | Encounter Summary ---
Author Organization [facility] Address [address] [place] [address] Care Team Providers Care Lead Teacher Name Role Phone Jevon Vazquez MD Primary Care Provider [phone] Reason for Visit * Reason Comments Nurse Visit Encounter Details Date Type Department Care Team ([facility] Contact Info) Description 09/19/2024 7:30 AM EDT Clinical Support [facility] Hematology/BMT and Cellular Therapy Program [address] [phone] Social History Tobacco Use Types Packs/Day Years [...] Upcoming Encounters Date Type Department Care Team ([facility] Contact Info) Description 10/14/2024 11:00 AM EDT Clinical Support [facility] Hematology/BMT and Cellular Therapy Program [address] [phone] 10/14/2024 11:30 AM EDT Office Visit [facility] Hematology/BMT and Cellular Therapy Program [address] [phone] Zonia Hoffman, STITCH SEPARATOR 800 [facility] [address] [place] [address] 10/14/2024 4:30 PM EDT Appointment [facility] Infusion [address] [place] [address] 10/15/2024 2:00 PM EDT Appointment [facility] [address] [place] [address] 10/16/2024 2:00 PM EDT Appointment [facility] [address] [place] [address] 10/18/2024 1:00 PM EDT Appointment [facility] 2 [address] [place] [address] 10/19/2024 1:00 PM EDT Appointment [facility] 2 [address] [place] [address] 10/20/2024 3:30 PM EDT Appointment [facility] [address] [place] [address] 10/21/2024 4:30 PM EDT Appointment [facility] 2 [address] [place] [address] 10/29/2024 1:00 PM EDT Clinical Support [facility] Hematology/BMT and Cellular Therapy Program [address] [address] 10/29/2024 1:30 PM EDT Office Visit [facility] Hematology/BMT and Cellular Therapy Program [address] [address] Zonia Hoffman, STITCH SEPARATOR 800 [facility] [address] [place] [phone] documented as of this encounter Visit Diagnoses Not on filedocumented in this encounter Additional Health Concerns Assessment Noted Time A fall risk assessment has been complete d for the patient 09/19/2024 8:38 AM EDT A Body Mass Index follow-up plan has been documented for the patient 05/28/2024 1:52 PM EST documented as of this encounter Care Teams Lead Teacher Relationship Specialty Start Date End Date Jevon Vazquez MD [address] [place] [address] #1 #1 [place] [address] PCP - General 03/23/22 documented as of this encounter
--- OUTSIDE RECORDS SUMMARY | 2024-09-19 09:30 | XMS_ITS | Encounter Summary ---
Author Organization Healthcare Address [address] [place] [address] Care Team Providers Care Yeast Fermentation Attendant Name Role Phone Jevon Vazquez MD Primary Care Provider [phone] Reason for Visit * Reason Comments Follow-up Encounter Details Date Type Department Care Team (Latest Contact Info) Description 09/19/2024 9:30 AM EDT Clinical Support [facility] Cancer Acute Treatment Clinic [address] [place] [address] Acute myeloid leukemia not having achieved remission [...] Upcoming Encounters Date Type Department Care Team ([facility] st Contact Info) Description 10/14/2024 11:00 AM EDT Clinical Support [facility] Hematology/BMT and Cellular Therapy Program [address] [place] [address] 10/14/2024 11:30 AM EDT Office Visit [facility] H[facility]ology/BMT [facility] Cellular Therapy Program [address] [place] [address] Zonia Hoffman, ALIGNING CHECKER 800 [facility] [address] [place] [address] 10/14/2024 4:30 PM EDT Appointment [facility] In[facility] [address] [place] [address] 10/15/2024 2:00 PM EDT Appointment [facility] [address] [place] [address] 10/16/2024 2:00 PM EDT Appointment [facility] [address] [place] [address] 10/18/2024 1:00 PM EDT Appointment [facility] 2 [address] [place] [address] 10/19/2024 1:00 PM EDT Appointment [facility] 2 [address] [place] [address] 10/20/2024 3:30 PM EDT Appointment [facility] [address] [place] [address] 10/21/2024 4:30 PM EDT Appointment [facility] 2 [address] [place] [address] 10/29/2024 1:00 PM EDT Clinical Support [facility]ology[facility]BMT [facility] Cellular Therapy Program [address] [place] [address] 10/29/2024 1:30 PM EDT Office Visit [facility]ology[facility] Cellular Therapy Program [address] [place] [address] Zonia Hoffman, ALIGNING CHECKER 800 [facility] [address] [place] [address] documented as of this encounter Procedures Procedure Name Priority Date/Time Associated Diagnosis Comments PLATELET COUNT, BLOOD STAT 09/19/2024 10:04 AM EDT PREPARE PLATELETS Routine 09/19/2024 9:0 8 AM EDT documented in this encounter Results * (ABNORMAL) Platelet count (09/19/2024 10:04 AM EDT) Platelet Count 61(L) 155 - 369 10*3/uL LAB HEMATOLOGY METHOD 09/19/2024 10:19 AM EDT [facility] Blood Blood sample taken from central line / Unknown (Port) Long-term Catheter / Unknown 09/19/2024 10:04 AM EDT 09/19/2024 10:18 AM EDT us New Mckinney MD LAB BLOOD ORDERABLES Final Re sult [facility] 800 [place] [address] * Transfuse platelets, Irradiated (09/19/2024 10:02 AM EDT) us Lexi Ferraro APRN BLOOD TRANSFUSION ORDERABL ES Final Result * Prepare Leukocyte Reduced Platelets (09/19/2024 9:08 AM EDT) Product Code [id number] CH BLOO D BANK Dispense Status Transfused BLOOD BANK Blood Expiration Date [id number] BLOOD BANK Unit Number [id number] CH B LOOD BANK Product Blood Type 6200 BLOOD BANK Blood Type A+ CH BLOOD BANK us Provider Not In System BLOOD BANK PRODUCT ORD ERABLES Final Result BLOOD BANK [address] [place] [address], documented in this encounter Visit Diagnoses Diagnosis [...] documented as of this encounter Care Teams Yeast Fermentation Attendant Relationship Specialty Start Date End Date Jevon Vazquez MD [address] [place] [address] #1 #1 [place] [address] PCP - General 03/23/22 documented as of this encounter
--- OUTSIDE RECORDS SUMMARY | 2024-09-19 12:00 | XMS_ITS | Encounter Summary ---
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 [address] [address] Phone: tel: fax: Referral ID Status Reason Start Date Expiration Date V isits Requested Visits Authorized [id number] Authorized 09/11/2024 03/13/2026 1 1 Encounter Details Date Type Department Care Team (Latest Contact Info) Description 09/19/2024 12:00 PM EDT Procedure Visit [facility] Hematology/BMT and Cellular Therapy Program [address] [phone] Lexi Ferraro, RODDY [address] [facility] Cancer [address] [address] Acute myeloid leukemia not having [...] to surronding structures. Alternatives discussed: Delayed treatment Taopi protocol: Procedure explained and questions answered to [...] Upcoming Encounters Date Type Department Care Team ([facility] st Contact Info) Description 10/14/2024 11:00 AM EDT Clinical Support [facility] Hematology/BMT and Cellular Therapy Program [address] [phone] 10/14/2024 11:30 AM EDT Office Visit [facility] Hematology/BMT and Cellular Therapy Program [address] [place] [phone] Zonia Hoffman APRN [address] [facility] [address] [place] [phone] 10/14/2024 4:30 PM EDT Appointment [facility] [address] [place] [address] 10/15/2024 2:00 PM EDT Appointment [facility] [address] [place] [address] 10/16/2024 2:00 PM EDT Appointment [facility] [address] [place] [address] 10/18/2024 1:00 PM EDT Appointment [facility] [address] [place] [address] 10/19/2024 1:00 PM EDT Appointment [facility] [address] [place] [address] 10/20/2024 3:30 PM EDT Appointment [facility] [address] [place] [address] 10/21/2024 4:30 PM EDT Appointment [facility] [address] [place] [address] 10/29/2024 1:00 PM EDT Clinical Support [facility] Hematology/BMT and Cellular Therapy Program [address] [phone] 10/29/2024 1:30 PM EDT Office Visit [facility] Hematology/BMT and Cellular Therapy Program [address] [phone] Zonia Hoffman, UX INTERACTION DESIGNER [address] [facility] [address] [place] [phone] documented as of this encounter Procedures Procedure [...] to surronding structures. Alternatives discussed: Delayed treatment Taopi protocol: Procedure explained and questions answered to [...] Type Bone Marrow 09/24/2024 2:37 PM EDT [facility] Clinical Indication Myelodysplastic Syndrome 09/24/2024 2:37 PM EDT [facility] Specimen Adequacy Adequate 025 2:37 PM EDT [facility] Chromosome Analysis Result Giemsa-banded metaphase cells from unstimulated bone marrow cultures showed a 46,XX[20] chromosome pattern. 09/24/2024 2:37 PM EDT [facility] Interpretation Normal female chromosome analysis. No clonal abnormalities were detected at current resolution. Clinical correlation is recommended. # cells counted = 20 # cells analyzed = 20 # cells karyotyped = 2 Band resolution: 450-525 09/24/2024 2:37 PM EDT [facility] Pathologist Signature Reviewed by: Corey Tejada 09/24/2024 2:37 PM EDT [facility] Bone Marrow Non-blood Collection / Unknown 09/19/2024 7:29 AM EDT 09/19/2024 12:35 PM EDT us New Mckinney MD LAB CYTOGENETICS ORDERABLES F inal Result [facility] [address] [place] [address] * Myeloid Focused Panel, 50 gene (09/19/2024 7:29 AM EDT) Interpretation The following two (2) genes, TP53 and DNMT3A, with persistent variants have been detected in this bone marrow specimen. The variant, p.[id number], in TP53 gene and the variant, p.[id number], in the RUNX 1 gene are not detectable at current cutoff and coverage established in this lab. Gene: TP53 Mutation: c.814G>A; p.Tdu624Mcq Allele Frequency (%): 37% (45% Dec 2023) ID: [id number] Gene: DNMT3A Mutation: c.1522delC; p.[id number] 3 Allele Frequency (%): 36% (48% Dec 2023) Additional Details on Mutation Identified: Gene Transcript Genome Chrom Coordinate RefVar DNMT3A [id number] Hg19 2 [id number] delC TP53 [id number] Hg19 17 [id number] G>A 09/29/2024 4:05 PM EDT [facility] Methodology The following 50 genes [...] then sequenced on the Illumina NextSeq 2000 ([employer], [place]). A custom bioinformatics pipeline aligns [...] malignancies. 09/29/2024 4:05 PM EDT [facility] Disclaimer This test was developed and its performance characteristics determined by the Clinical Molecular and Genomic Pathology Laboratory at the [facility]. It has not been cleared or approved [...] testing. 09/29/2024 4:05 PM EDT [facility] Pathologist Signature Reviewed by: Corey Tejada 09/29/2024 4:05 PM EDT [facility] Bone Marrow Specimen from bone marrow obtained by aspiration / Unknown Non-blood Collection / Unknown 09/19/2024 7:29 AM EDT 09/19/2024 12:03 PM EDT us New Mckinney MD LAB MOLECULAR DIAGNOSTICS ORD ERABLES Final Result [facility] [address] [place] [address], * Leukemia/Lymphoma - Immunophenotyping by Flow Cytometry (09/19/2024 7:29 AM EDT) Clinical Indication AML 09/22/2024 10:29 AM EDT [facility] Flow Cytometry Interpretation A. BONE MARROW FOR FLOW CYTOMETRY: - MIXED MARROW ELEMENTS WITH NO EVIDENCE OF INCREASED BLASTS OR ABNORMAL LYMPHOID POPULATIONS, SEE COMMENT. 09/22/2024 10:29 AM EDT [facility] Comments CD45/side scatter analysis shows [...] surface light chains 09/22/2024 10:29 AM EDT [facility] Disclaimer This test was developed and its performance characteristics determined by the Immuno-Molecular Pathology Laboratory at the [facility]. It has not been cleared or approved [...] on the report. 09/22/2024 10:29 AM EDT [facility] Pathologist Signature Reviewed by: Lisandra Epstein MD 09/22/2024 10:29 AM EDT [facility] MRD Indicated Test Not Indicated 12/2024 10:29 AM EDT [facility] Bone Marrow Specimen from bone marrow obtained by aspiration / Unknown Non-blood Collection / Unknown 09/19/2024 7:29 AM EDT 09/19/2024 12:13 PM EDT New Mckinney MD LAB FLOW CYTOMETRY ORDERABLES Final Result [facility] [address] [place] [address] * (ABNORMAL) CBC and differential (09/19/2024 7:29 AM EDT) WBC Count 2.70(L) 3.70 - 10.30 10*3/uL LAB HEMATOLOGY METHOD 09/19/2024 9:13 AM EDT [facility] RBC Count 1.86(L) 3.90 - 5.20 10*6/uL LAB HEMATOLOGY METHOD 09/19/2024 9:13 AM EDT [facility] HGB 7.1(L) 11.2 - 15.7 g/dL LAB HEMATOLOGY METHOD 09/19/2024 9:13 AM EDT [facility] HCT 21.5(L) 34.0 - 45.0 % LAB HEMATOLOGY METHOD 09/19[facility]2024 [facility] Platelet Count 14(LL) 155 - 369 10*3/uL LAB HEMATOLOGY METHOD 09/19/2024 9:13 AM EDT [facility] MCV 116(H) 79 - 98 fL LAB HEMATOLOGY METHOD 09/19/2024 9:13 AM EDT [facility] MCH 38.2(H) 26.0 - 32.0 pg LAB HEMATOLOGY METHOD 09/19/2024 9:13 AM EDT [facility] MCHC 33.0 30.7 - 35.5 g/dL LAB HEMATOLOGY METHOD 09/19/2024 9:13 AM EDT [facility] RDW 21.8(H) 11.5 - 14.5 % LAB HEMATOLOGY METHOD 09/19/2024 9:13 AM EDT [facility] MPV 13.5(H) 8.8 - 12.5 fL LAB HEMATOLOGY METHOD 09/19/2024 9:13 AM EDT [facility] nRBC 0.0 <=0.0 per 100 WBCs LAB HEMATOLOGY METHOD 09/19/2024 9:13 AM EDT [facility] Differential Type Automated LAB HEMATOLOGY METHOD 09/19/2024 9:13 AM EDT [facility] Neutrophils % 51 % LAB HEMATOLOGY METHOD 09/19/2024 9:13 AM EDT [facility] Lymphocytes % 41 % LAB HEMATOLOGY METHOD 09/19/2024 9:13 AM EDT [facility] Monocytes % 7 % LAB HEMATOLOGY METHOD 09/19/2024 9:13 AM EDT [facility] Eosinophils % 1 % LAB HEMATOLOGY METHOD 09/19/2024 9:13 AM EDT [facility] Basophils % 0 % LAB HEMATOLOGY METHOD 09/19/2024 9:13 AM EDT [facility] Immature Granulocytes % 0 % LAB HEMATOLOGY METHOD 09/19/2024 9:13 AM EDT [facility] Neutrophils Absolute 1.35(L) 1.60 - 6.10 10*3/uL LAB HEMATOLOGY METHOD 09/19/2024 9:13 AM EDT [facility] Lymphocytes Absolute 1.10(L) 1.20 - 3.90 10*3/uL LAB HEMATOLOGY METHOD 09/19/2024 9:13 AM EDT [facility] Monocytes Absolute 0.20(L) 0.30 - 0.90 10*3/uL LAB HEMATOLOGY METHOD 09/19/2024 9:13 AM EDT [facility] Eosinophils Absolute 0.03 0.00 - 0.50 10*3/uL LAB HEMATOLOGY METHOD 09/19/2024 9:13 AM EDT [facility] Basophils Absolute 0.01 0.00 - 0.10 10*3/uL LAB HEMATOLOGY METHOD 09/19/2024 9:13 AM EDT [facility] Immature Granulocytes Absolute 0.01 0.00 - 0.06 10*3/uL LAB HEMATOLOGY METHOD 09/19/2024 9:13 AM EDT [facility] Blood Blood sample taken from central line / Unknown (Port) Long-term Catheter / Unknown 09/19/2024 7:29 AM EDT 09/19/2024 8:08 AM EDT Narrative [facility] - 09/19/2024 9:13 AM EDT Therapeutic decision making should be based on absolute values, rather than percentages. New Mckinney MD LAB BLOOD ORDERABLES Final Re sult [facility] [address] [place] [address] * Bone marrow exam (09/19/2024 7:29 AM EDT) Case Report Bone Marrow Case: [id number] Authorizing Provider: New Mckinney MD Collected: 09/19/2024 0729 Ordering Location: [facility] Hematology/BMT and Received: 09/19/2024 1216 Cellular Therapy Program Pathologist: Lisandra Epstein MD Specimens: A) - Bone Marrow Aspirate, right B) - Bone Marrow Biopsy, right C) - Peripheral Blood for Bone Marrow 3:15 PM EDT [facility] Cytogenetics Report, Addendum Chromosome Analysis Result Giemsa-banded metaphase cells from unstimulated bone marrow cultures showed a 46,XX[20] chromosome pattern. Interpretation Normal female chromosome analysis. No clonal abnormalities were detected at current resolution. Clinical correlation is recommended. 3:15 PM EDT [facility] Addendum electronically signed by Lisandra Epstein MD on 09/24/2024 at 1630 EDT Addendum Interpretation The following two (2) genes, TP53 and DNMT3A, with persistent variants have been detected in this bone marrow specimen. The variant, p.[id number], in TP53 gene and the variant, p.[id number], in the RUNX 1 gene are not detectable at current cutoff and coverage established in this lab. Gene: TP53 Mutation: c.814G>A; p.[id number] Allele Frequency (%): 37% (45% Dec 2023) ID: [id number] Gene: DNMT3A Mutation: c.1522delC; p.[id number] 43 Allele Frequency (%): 36% (48% Dec 2023) Additional Details on Mutation Identified: 3:15 PM EDT [facility] Addendum electronically signed by Lisandra Epstein MD on 09/30/2024 at 1515 EDT Final Diagnosis PERIPHERAL BLOOD AND BONE MARROW, RIGHT POSTERIOR ILIAC CREST, (ASPIRATE SMEAR, AND CORE BIOPSY): - HYPOCELLULAR BONE MARROW WITH MARKEDLY DECREASED MEGAKARYOCYTES; NO SIGNIFICANT DYSPOIESIS OR INCREASE IN BLASTS. 3:15 PM EDT [facility] at 1453 EDT Clinical Information AML 09/14 3:15 PM EDT [facility] CBC and Differential PERIPHERAL BLOOD: [...] blasts are not seen. 3:15 PM EDT [facility] Bone Marrow Differential BONE MARROW DIFFERENTIAL: 200 cells Normal Patient Neutrophils 15-50 34 Metamyelocytes 4-19 3 Myelocytes 1-18 10 Promyelocytes 1-8 1 Blasts 0-2 1 Monocytes 0-5 4 Erythroid 16-38 22 Lymphocytes 3-24 13 Eosinophils 0-6 8 Basophils 0-2 0 Plasma cells 0-4 4 Other 5 3:15 PM EDT [facility] Bone Marrow Aspirate and Biopsy [...] Bone trabeculae are unremarkable. 3:15 PM EDT [facility] Special and Immunohistochemical Stains Special Stain: A1-1 Vazquez-Giemsa A1-2 Vazquez-Giemsa A1-3 Vazquez-Giemsa C1-1 Vazquez-Giemsa IHC: B1-2 CD34 All controls show appropriate reactivity. All immunohistochemis try, in situ hybridization, and histochemical tests were developed by and are performed at the [facility], [address] [place] [address]. All tests reported here, except those addressing [...] negativity on decalcified specimens. 3:15 PM EDT [facility] Flow Cytometry Interpretation MIXED MARROW ELEMENTS WITH NO EVIDENCE OF INCREASED BLASTS OR ABNORMAL LYMPHOID POPULATIONS ([id number]). 3:15 PM EDT [facility] CYTOGENETICS/MOLECULA R INTERPRETATION Correlation with cytogenetic/molec ular analysis is suggested. 5 3:15 PM EDT [facility] Gross Description B. RIGHT A single specimen is received in formalin labeled bone marrow biopsy right posterior iliac crest and consists of 2 piece(s) of red/white tissue measuring 2.1/0.3 cm in length 0.2 cm in diameter. The specimen is submitted in to Histology for decalcification and routine processing. Cold Time: <1m 3:15 PM EDT [facility] Note: A resident was involved in the service. I attest I examined the relevant preparations for the specimens and confirmed the diagnosis or interpretation. 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
--- OUTSIDE RECORDS SUMMARY | 2024-09-30 09:00 | XMS_ITS | Encounter Summary ---
Author Organization Healthcare Address [address] [place] [address] Care Team Providers Care Undercollar Baster Name Role Phone Jevon Vazquez MD Primary Care Provider [phone] Reason for Visit * Reason Comments Labs Only Encounter Details Date Type Department Care Team ([facility] Contact Info) Description 09/30/2024 9:00 AM EDT Clinical Support [facility] Hematology/BMT and Cellular Therapy Program [address] [phone] Jyoti Kemp Acute myeloid leukemia not having [...] Upcoming Encounters Date Type Department Care Team ([facility] Contact Info) Description 10/14/2024 11:00 AM EDT Clinical Support [facility] Hematology/BMT and Cellular Therapy Program [address] [phone] 10/14/2024 11:30 AM EDT Office Visit [facility] Hematology/BMT and Cellular Therapy Program [address] [phone] Zonia Hoffman, POLICE WORKER 800 [facility] [address] [place] [phone] 10/14/2024 4:30 PM EDT Appointment [facility] [address] [place] [address] 10/15/2024 2:00 PM EDT Appointment [facility] [address] [place] [address] 10/16/2024 2:00 PM EDT Appointment [facility] [address] [place] [address] 10/18/2024 1:00 PM EDT Appointment [facility] 2 [address] [place] [address] 10/19/2024 1:00 PM EDT Appointment [facility] 2 [address] [place] [address] 10/20/2024 3:30 PM EDT Appointment [facility] [address] [place] [address] 10/21/2024 4:30 PM EDT Appointment [facility] 2 [address] [place] [address] 10/29/2024 1:00 PM EDT Clinical Support [facility] Hematology/BMT and Cellular Therapy Program [address] [place] [address] 10/29/2024 1:30 PM EDT Office Visit [facility] Hematology/BMT and Cellular Therapy Program [address] [place] [address] Zonia Hoffman, POLICE WORKER 800 [facility] [address] [place] [phone] documented as of this encounter Procedures Procedure [...] - 99 mg/dL 09/30/2024 10:20 AM EDT [facility] BUN, Plasma 21 8 - 23 mg/dL 09/30/2024 10:20 AM EDT [facility] Creatinine, Plasma 1.00 0.60 - 1.10 mg/dL 09/30/2024 10:20 AM EDT [facility] BUN/Creatinine Ratio 21 09/30/2024 10:20 AM EDT [facility] Sodium, Plasma 137 136 - 145 mmol/L 09/30/2024 10:20 AM EDT [facility] Potassium, Plasma 3.8 3.6 - 4.9 mmol/L 09/30/2024 10:20 AM EDT [facility] Chloride, Plasma 107 97 - 107 mmol/L 09/30/2024 10:20 AM EDT [facility] CO2, Plasma 22 22 - 29 mmol/L 09/30/2024 10:20 AM EDT [facility] Anion Gap 8 6 - 16 mmol/L 09/30/2024 10:20 AM EDT [facility] Total Calcium, Plasma 9.8 8.9 - 10.2 mg/dL 09/30/2024 10:20 AM EDT [facility] Total Protein 5.9(L) 6.3 - 7.9 g/dL 09/30/2024 10:20 AM EDT [facility] Albumin, Plasma 3.8 3.5 - 5.2 g/dL 09/30/2024 10:20 AM EDT [facility] AST, Plasma 28 10 - 35 U/L 09/30/2024 10:20 AM EDT [facility] ALT, Plasma 14 10 - 35 U/L 09/30/2024 10:20 AM EDT [facility] Alkaline Phosphatase, Plasma 34(L) 46 - 142 U/L 09/30/2024 10:20 AM EDT [facility] Total Bilirubin, Plasma 0.3 0.2 - 1.1 mg/dL 09/30/2024 10:20 AM EDT [facility] eGFRcr 59.6 mL/min/1.7 3m*2 09/30/2024 10:20 AM EDT [facility] Comment:Reported eGFRcr in m L/min/1.73m2 is based the CKD-EPI 2020 equation that does not use a race coefficient. Blood Venous blood specimen / Unknown (Port) Long-term Catheter / Unknown 09/30/2024 9:11 AM EDT 09/30/2024 9:50 AM EDT us Zonia Hoffman APRN LAB BLOOD ORDERABLES Final Res ult [facility] [address] [place] [address] * (ABNORMAL) CBC and Differential (09/30/2024 9:11 AM EDT) WBC Count 3.34(L) 3.70 - 10.30 10*3/uL LAB HEMATOLOGY METHOD 09/30/2024 11:07 AM EDT [facility] RBC Count 1.91(L) 3.90 - 5.20 10*6/uL LAB HEMATOLOGY METHOD 09/30/2024 11:07 AM EDT [facility] HGB 7.7(L) 11.2 - 15.7 g/dL LAB HEMATOLOGY METHOD 09/30/2024 11:07 AM EDT [facility] HCT 22.8(L) 34.0 - 45.0 % LAB HEMATOLOGY METHOD 09/30/2024 11:07 AM EDT [facility] Platelet Count 17(LL) 155 - 369 10*3/uL LAB HEMATOLOGY METHOD 09/30/2024 11:07 AM EDT [facility] MCV 119(H) 79 - 98 fL LAB HEMATOLOGY METHOD 09/30/2024 11:07 AM EDT [facility] MCH 40.3(H) 26.0 - 32.0 pg LAB HEMATOLOGY METHOD 09/30/2024 11:07 AM EDT [facility] MCHC 33.8 30.7 - 35.5 g/dL LAB HEMATOLOGY METHOD 09/30/2024 11:07 AM EDT [facility] RDW 18.7(H) 11.5 - 14.5 % LAB HEMATOLOGY METHOD 09/30/2024 11:07 AM EDT [facility] MPV 11.1 8.8 - 12.5 fL LAB HEMATOLOGY METHOD 09/30/2024 11:07 AM EDT [facility] nRBC 0.0 <=0.0 per 100 WBCs LAB HEMATOLOGY METHOD 09/30/2024 11:07 AM EDT [facility] Differential Type Automated LAB HEMATOLOGY METHOD 09/30/2024 11:07 AM EDT [facility] Neutrophils % 65 % LAB HEMATOLOGY METHOD 09/30/2024 11:07 AM EDT [facility] Lymphocytes % 26 % LAB HEMATOLOGY METHOD 09/30/2024 11:07 AM EDT [facility] Monocytes % 7 % LAB HEMATOLOGY METHOD 09/30/2024 11:07 AM EDT [facility] Eosinophils % 1 % LAB HEMATOLOGY METHOD 09/30/2024 11:07 AM EDT [facility] Basophils % 1 % LAB HEMATOLOGY METHOD 09/30/2024 11:07 AM EDT [facility] Immature Granulocytes % 0 % LAB HEMATOLOGY METHOD 09/30/2024 11:07 AM EDT [facility] Neutrophils Absolute 2.17 1.60 - 6.10 10*3/uL LAB HEMATOLOGY METHOD 09/30/2024 11:07 AM EDT [facility] Lymphocytes Absolute 0.87(L) 1.20 - 3.90 10*3/uL LAB HEMATOLOGY METHOD 09/30/2024 11:07 AM EDT [facility] Monocytes Absolute 0.24(L) 0.30 - 0.90 10*3/uL LAB HEMATOLOGY METHOD 09/30/2024 11:07 AM EDT [facility] Eosinophils Absolute 0.03 0.00 - 0.50 10*3/uL LAB HEMATOLOGY METHOD 09/30/2024 11:07 AM EDT [facility] Basophils Absolute 0.02 0.00 - 0.10 10*3/uL LAB HEMATOLOGY METHOD 09/30/2024 11:07 AM EDT [facility] Immature Granulocytes Absolute 0.01 0.00 - 0.06 10*3/uL LAB HEMATOLOGY METHOD 09/30/2024 11:07 AM EDT [facility] Blood Venous blood specimen / Unknown (Port) Long-term Catheter / Unknown 09/30/2024 9:11 AM EDT 09/30/2024 9:34 AM EDT Narrative [facility] - 09/30/2024 11:07 AM EDT Therapeutic decision making should be based on absolute values, rather than percentages. 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
--- OUTSIDE RECORDS SUMMARY | 2024-09-30 09:30 | XMS_ITS | Encounter Summary ---
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 female. Referring Physician: Zonia Hoffman, ARCH SUPPORT TECHNICIAN 800 [facility] [address] [address] Primary Care Provider: Jevon Vazquez MD Chief [...] k/??L. 12/2023- seen by Dr. Manzano in [facility] for evaluation of [...] interphase cells examined show a deletion of R5T977. Next generation sequencing: Abnormal: TP53 (c.814G>A; p.Are259Rsv) frequency 45%, DMNT3A (c.1522delC; p.[id number]) frequency 48%, RUNX1 (c.336_338delGCC; p.Omj253dxx) frequency 35% Azacitidine + Venetoclax Cycle 1: [...] - Continue local lab checks MWF at [facility] Allogenic transplant planning. 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 However, given her older age > 70, she would benefit from a geriatric BMT program and will make referrals should she be interested. Expected pancytopenia related to chemotherapy/AML. Check CBC x 3 times/week at [facility] Labs reviewed today, [...] charts, reviewing results, and documenting. RODDY Cristina [facility] HEMATOLOGY/BMT AND CELLULAR THERAPY PROGRAM 800 [facility] [phone] 40 minutes was spent on this encounter; [...] Upcoming Encounters Date Type Department Care Team ([facility] st Contact Info) Description 10/14/2024 11:00 AM EDT Clinical Support [facility] Hematology/BMT and Cellular Therapy Program 750 [facility], [address] [place] [address] [place] [address] 10/14/2024 11:30 AM EDT Office Visit [facility] Hematology/BMT and Cellular Therapy Program [address] [place] [address] Zonia Hoffman, ARCH SUPPORT TECHNICIAN 800 [facility] [address] [place] [phone] 10/14/2024 4:30 PM EDT Appointment [facility] 800 [place] [address] 10/15/2024 2:00 PM EDT Appointment [facility] [address] [place] [address] 10/16/2024 2:00 PM EDT Appointment [facility] [address] [place] [address] 10/18/2024 1:00 PM EDT Appointment [facility] 2 [address] [place] [address] 10/19/2024 1:00 PM EDT Appointment [facility] 2 [address] [place] [phone] 10/20/2024 3:30 PM EDT Appointment [facility] [address] [place] [address] 10/21/2024 4:30 PM EDT Appointment [facility] 2 [address] [place] [address] 10/29/2024 1:00 PM EDT Clinical Support [facility] Hematology/BMT and Cellular Therapy Program [address] [phone] 10/29/2024 1:30 PM EDT Office Visit [facility] Hematology/BMT and Cellular Therapy Program [address] [place] [phone] Zonia Hoffman, ARCH SUPPORT TECHNICIAN 800 [facility] [address] [place] [phone] documented as of this encounter Results * (ABNORMAL) Comprehensive Metabolic Panel, Plasma (09/30/2024 9:11 AM EDT) [facility] Glucose, Plasma 135(H) 74 - 99 mg/dL 09/30/2024 10:[address] [facility] BUN, Plasma 21 8 - 23 mg/dL 09/30/2024 10:[address] [facility] Creatinine, Plasma 1.00 0.60 - 1.10 mg/dL 09/30/2024 10:[address] [facility] BUN/Creatinine Ratio 21 09/30/2024 10:[address] [facility] Sodium, Plasma 137 136 - 145 mmol/L 09/30/2024 10:[address] [facility] Potassium, Plasma 3.8 3.6 - 4.9 mmol/L 09/30/2024 10:[address] [facility] Chloride, Plasma 107 97 - 107 mmol/L 09/30/2024 10:[address] [facility] CO2, Plasma 22 22 - 29 mmol/L 09/30/2024 10:[address] [facility] Anion Gap 8 6 - 16 mmol/L 09/30/2024 10:[address] [facility] Total Calcium, Plasma 9.8 8.9 - 10.2 mg/dL 09/30/2024 10:[address] [facility] Total Protein 5.9(L) 6.3 - 7.9 g/dL 09/30/2024 10:[address] [facility] Albumin, Plasma 3.8 3.5 - 5.2 g/dL 09/30/2024 10:[address] [facility] AST, Plasma 28 10 - 35 U/L 09/30/2024 10:[address] [facility] ALT, Plasma 14 10 - 35 U/L 09/30/2024 10:[address] [facility] Alkaline Phosphatase, Plasma 34(L) 46 - 142 U/L 09/30/2024 10:[address] [facility] Total Bilirubin, Plasma 0.3 0.2 - 1.1 mg/dL 09/30/2024 10:[address] [facility] eGFRcr 59.6 mL/min/1.7 3m*2 09/30/2024 10:[address] [facility] Comment:Reported eGFRcr in m L/min/1.73m2 is based the CKD-EPI 2020 equation that does not use a race coefficient. Blood Venous blood specimen / Unknown (Port) Long-term Catheter / Unknown 09/30/2024 9:11 AM EDT 09/30/2024 9:50 AM EDT Zonia Hoffman APRN LAB BLOOD ORDERABLES Final Res ult [facility] [address] [place] [address] * (ABNORMAL) CBC and Differential (09/30/2024 9:11 AM EDT) WBC Count 3.34(L) 3.70 - 10.30 10*3/uL LAB HEMATOLOGY METHOD 09/30/2024 11:[address] [facility] RBC Count 1.91(L) 3.90 - 5.20 10*6/uL LAB HEMATOLOGY METHOD 09/30/2024 11:[address] [facility] HGB 7.7(L) 11.2 - 15.7 g/dL LAB HEMATOLOGY METHOD 09/30/2024 11:[address] [facility] HCT 22.8(L) 34.0 - 45.0 % LAB HEMATOLOGY METHOD 09/30/2024 11:[address] [facility] Platelet Count 17(LL) 155 - 369 10*3/uL LAB HEMATOLOGY METHOD 09/30/2024 11:[address] [facility] MCV 119(H) 79 - 98 fL LAB HEMATOLOGY METHOD 09/30/2024 11:[address] [facility] MCH 40.3(H) 26.0 - 32.0 pg LAB HEMATOLOGY METHOD 09/30/2024 11:[address] [facility] MCHC 33.8 30.7 - 35.5 g/dL LAB HEMATOLOGY METHOD 09/30/2024 11:[address] [facility] RDW 18.7(H) 11.5 - 14.5 % LAB HEMATOLOGY METHOD 09/30/2024 11:[address] [facility] MPV 11.1 8.8 - 12.5 fL LAB HEMATOLOGY METHOD 09/30/2024 11:[address] [facility] nRBC 0.0 <=0.0 per 100 WBCs LAB HEMATOLOGY METHOD 09/30/2024 11:[address] [facility] Differential Type Automated LAB HEMATOLOGY METHOD 09/30/2024 11:[address] [facility] Neutrophils % 65 % LAB HEMATOLOGY METHOD 09/30/2024 11:[address] [facility] Lymphocytes % 26 % LAB HEMATOLOGY METHOD 09/30/2024 11:[address] [facility] Monocytes % 7 % LAB HEMATOLOGY METHOD 09/30/2024 11:[address] [facility] Eosinophils % 1 % LAB HEMATOLOGY METHOD 09/30/2024 11:[address] [facility] Basophils % 1 % LAB HEMATOLOGY METHOD 09/30/2024 11:[address] [facility] Immature Granulocytes % 0 % LAB HEMATOLOGY METHOD 09/30/2024 11:[address] [facility] Neutrophils Absolute 2.17 1.60 - 6.10 10*3/uL LAB HEMATOLOGY METHOD 09/30/2024 11:[address] [facility] Lymphocytes Absolute 0.87(L) 1.20 - 3.90 10*3/uL LAB HEMATOLOGY METHOD 09/30/2024 11:[address] [facility] Monocytes Absolute 0.24(L) 0.30 - 0.90 10*3/uL LAB HEMATOLOGY METHOD 09/30/2024 11:[address] [facility] Eosinophils Absolute 0.03 0.00 - 0.50 10*3/uL LAB HEMATOLOGY METHOD 09/30/2024 11:[address] [facility] Basophils Absolute 0.02 0.00 - 0.10 10*3/uL LAB HEMATOLOGY METHOD 09/30/2024 11:[address] [facility] Immature Granulocytes Absolute 0.01 0.00 - 0.06 10*3/uL LAB HEMATOLOGY METHOD 09/30/2024 11:[address] [facility] Blood Venous blood specimen / Unknown (Port) Long-term Catheter / Unknown 09/30/2024 9:11 AM EDT 09/30/2024 9:[address] [facility] - 09/30/2024 11:07 AM EDT Therapeutic decision making should be based on absolute values, rather than percentages. us Zonia Hoffman APRN LAB BLOOD ORDERABLES Final Res ult [facility] [address] [place] [address] documented in this encounter Visit Diagnoses Diagnosis [...] documented as of this encounter Care Teams Tempering Kiln Tender Relationship Specialty Start Date End Date Jevon Vazquez MD [address] [place] [address] #1 #1 [place] [id number] PCP - General 03/23/22 documented as of this encounter
--- OUTSIDE RECORDS SUMMARY | 2024-10-13 09:09 | XMS_ITS | Encounter Summary ---
Author Organization Healthcare Address [address] [place] [address] Care Team Providers Care Supervisor Bindery Name Role Phone Jevon Vazquez MD Primary Care Provider [phone] Encounter Details Date Type Department Care Team [...] Hematology/BMT and Cellular Therapy Program [address] [address] 10/14/2024 11:30 AM EDT Office Visit [facility] Hematology/BMT and Cellular Therapy Program [address] [address] Zonia Hoffman, RODDY 800 [facility] [address] [place] [address] 10/14/2024 4:30 PM EDT Appointment [facility]fusion 800 [place] [address] 10/15/2024 2:00 PM EDT Appointment [facility]fusion 800 [place] [address] 10/16/2024 2:00 PM EDT Appointment [facility] 800 [place] [address] 10/18/2024 1:00 PM EDT Appointment [facility] 2 [address] [place] [address] 10/19/2024 1:00 PM EDT Appointment [facility] 2 [address] [place] [address] 10/20/2024 3:30 PM EDT Appointment [facility] [address] [place] [address] 10/21/2024 4:30 PM EDT Appointment [facility] 2 [address] [place] [address] 10/29/2024 1:00 PM EDT Clinical Support [facility] Hematology/BMT and Cellular Therapy Program [address] [address] 10/29/2024 1:30 PM EDT Office Visit [facility] Hematology/BMT and Cellular Therapy Program [address] [address] Zonia Hoffman, INVESTIGATION MANAGER 800 [facility] [address] [place] [address] documented as of this encounter Visit Diagnoses Not on filedocumented in this encounter Additional Health Concerns Assessment Noted Time A fall risk assessment has been complete d for the patient 07/30/2024 8:29 AM EDT A Body Mass Index follow-up plan has been documented for the patient 05/28/2024 1:52 PM EST documented as of this encounter Care Teams Supervisor Bindery Relationship Specialty Start Date End Date Jevon Vazquez MD [address] [place] [address] #1 #1 [place] [address] PCP - General 03/23/22 documented as of this encounter
--- OUTSIDE RECORDS SUMMARY | 2024-10-13 09:09 | XMS_ITS | Encounter Summary ---
Author Organization Healthcare Address [address] [place] [address] Care Team Providers Care Freight Checker Name Role Phone Jevon Vazquez MD Primary Care Provider [phone] Encounter Details Date Type Department Care Team [...] Hematology/BMT and Cellular Therapy Program [address] [address] 10/14/2024 11:30 AM EDT Office Visit [facility] Hematology/BMT and Cellular Therapy Program [address] [address] Zonia Hoffman, RODDY 800 [facility] [address] [place] [address] 10/14/2024 4:30 PM EDT Appointment [facility] Infusion 800 [place] [address] 10/15/2024 2:00 PM EDT Appointment [facility] 800 [place] [address] 10/16/2024 2:00 PM EDT Appointment [facility] 800 [place] [address] 10/18/2024 1:00 PM EDT Appointment [facility] 2 [address] [place] [address] 10/19/2024 1:00 PM EDT Appointment [facility] 2 [address] [place] [address] 10/20/2024 3:30 PM EDT Appointment [facility] 800 [place] [address] 10/21/2024 4:30 PM EDT Appointment [facility] 2 [address] [place] [address] 10/29/2024 1:00 PM EDT Clinical Support [facility] Hematology/BMT and Cellular Therapy Program [address] [address] 10/29/2024 1:30 PM EDT Office Visit [facility] Hematology/BMT and Cellular Therapy Program [address] [address] Zonia Hoffman, TELECOMMUNICATIONS LINESWORKER 800 [facility] [address] [place] [address] documented as of this encounter Visit Diagnoses Not on filedocumented in this encounter Additional Health Concerns Assessment Noted Time A fall risk assessment has been complete d for the patient 07/30/2024 8:29 AM EDT A Body Mass Index follow-up plan has been documented for the patient 05/28/2024 1:52 PM EST documented as of this encounter Care Teams Freight Checker Relationship Specialty Start Date End Date Jevon Vazquez MD [address] [place] [address] #1 #1 [place] [address] PCP - General 03/23/22 documented as of this encounter
--- OUTSIDE RECORDS SUMMARY | 2024-10-13 09:09 | XMS_ITS | Encounter Summary ---
Author Organization Healthcare Address [address] [place] [address] Care Team Providers Care Vinyl Cutter Name Role Phone Jevon Vazquez MD Primary Care Provider [phone] Encounter Details Date Type Department Care Team [...] Hematology/BMT and Cellular Therapy Program [address] [address] 10/14/2024 11:30 AM EDT Office Visit [facility] Hematology/BMT and Cellular Therapy Program [address] [address] Zonia Hoffman, RODDY 800 [facility] [address] [place] [address] 10/14/2024 4:30 PM EDT Appointment [facility] 800 [place] [address] 10/15/2024 2:00 PM EDT Appointment [facility] 800 [place] [address] 10/16/2024 2:00 PM EDT Appointment [facility] 800 [place] [address] 10/18/2024 1:00 PM EDT Appointment [facility] 2 [address] [place] [address] 10/19/2024 1:00 PM EDT Appointment [facility] 2 [address] [place] [address] 10/20/2024 3:30 PM EDT Appointment [facility] 800 [place] [address] 10/21/2024 4:30 PM EDT Appointment [facility] 2 [address] [place] [address] 10/29/2024 1:00 PM EDT Clinical Support [facility] Hematology/BMT and Cellular Therapy Program [address] [address] 10/29/2024 1:30 PM EDT Office Visit [facility] Hematology/BMT and Cellular Therapy Program [address] [address] Zonia Hoffman, AUTOMOTIVE SERVICE DIRECTOR 800 [facility] [address] [place] [address] documented as of this encounter Visit Diagnoses Not on filedocumented in this encounter Additional Health Concerns Assessment Noted Time A fall risk assessment has been complete d for the patient 07/30/2024 8:29 AM EDT A Body Mass Index follow-up plan has been documented for the patient 05/28/2024 1:52 PM EST documented as of this encounter Care Teams Vinyl Cutter Relationship Specialty Start Date End Date Jevon Vazquez MD [address] [place] [address] #1 #1 [place] [address] PCP - General 03/23/22 documented as of this encounter
--- OUTSIDE RECORDS SUMMARY | 2024-10-13 09:09 | XMS_ITS | Encounter Summary ---
Author Organization Healthcare Address [address] [place] [address] Care Team Providers Care Dinkey Engine Firer/Fireman Name Role Phone Jevon Vazquez MD Primary Care Provider [phone] Encounter Details Date Type Department Care Team (Late Contact Info) Description 09/30/2024 Telephone [facility] Hematology/BMT and Cellular Therapy Program [address] [place] [address] Zoraida Good, RN [facility] Social History Tobacco Use [...] Hematology/BMT and Cellular Therapy Program [address] [place] [address] 10/14/2024 11:30 AM EDT Office Visit PAV Hematology/BMT and Cellular Therapy Program [address] [place] [address] Zonia Hoffman, AUTO PARTS SALESPERSON 800 [facility] [address] [place] [phone] 10/14/2024 4:30 PM EDT Appointment [facility] Infusion 800 [place] [address] 10/15/2024 2:00 PM EDT Appointment [facility] [address] [place] [address] 10/16/2024 2:00 PM EDT Appointment [facility] [address] [place] [address] 10/18/2024 1:00 PM EDT Appointment [facility] 2 [address] [place] [address] 10/19/2024 1:00 PM EDT Appointment [facility] 2 [address] [place] [address] 10/20/2024 3:30 PM EDT Appointment [facility] [address] [place] [address] 10/21/2024 4:30 PM EDT Appointment [facility] 2 744 [place] [address] 10/29/2024 1:00 PM EDT Clinical Support PAV Hematology/BMT and Cellular Therapy Program [address] [place] [address] 10/29/2024 1:30 PM EDT Office Visit PAV Hematology/BMT and Cellular Therapy Program [address] [place] [address] Zonia Hoffman, AUTO PARTS SALESPERSON 800 [facility] [address] [place] [phone] documented as of this encounter Visit Diagnoses Not on filedocumented in this encounter Additional Health Concerns Assessment Noted Time A fall risk assessment has been complete d for the patient 09/30/2024 9:33 AM EDT A Body Mass Index follow-up plan has been documented for the patient 05/28/2024 1:52 PM EST documented as of this encounter Care Teams Dinkey Engine Firer/Fireman Relationship Specialty Start Date End Date Jevon Vazquez MD [address] [place] [address] #1 #1 [place] [id number] PCP - General 03/23/22 documented as of this encounter
--- OUTSIDE RECORDS SUMMARY | 2024-10-13 09:09 | XMS_ITS | Encounter Summary ---
Author Organization Healthcare Address [address] [place] [address] Care Team Providers Care Senior Dentist Name Role Phone Jevon Vazquez MD Primary Care Provider [phone] Encounter Details Date Type Department Care Team [...] Hematology/BMT and Cellular Therapy Program [address] [address] 10/14/2024 11:30 AM EDT Office Visit [facility] Hematology/BMT and Cellular Therapy Program [address] [address] Zonia Hoffman, RODDY 800 [facility] [address] [place] [phone] 10/14/2024 4:30 PM EDT Appointment [facility] Infusion 800 [place] [address] 10/15/2024 2:00 PM EDT Appointment [facility] Infusion [address] [place] [address] 10/16/2024 2:00 PM EDT Appointment [facility]fusion [address] [place] [address] 10/18/2024 1:00 PM EDT Appointment [facility] 2 744 [place] [address] 10/19/2024 1:00 PM EDT Appointment [facility] 2 7[address] [place] [address] 10/20/2024 3:30 PM EDT Appointment [facility] Infusion [address] [place] [address] 10/21/2024 4:30 PM EDT Appointment [facility] 2 [address] [place] [address] 10/29/2024 1:00 PM EDT Clinical Support [facility] Hematology/BMT and Cellular Therapy Program [address] [address] 10/29/2024 1:30 PM EDT Office Visit [facility] CC Hematology/BMT and Cellular Therapy Program [address] [address] Zonia Hoffman, COLLATOR HAND 800 [facility] [address] [place] [phone] documented as of this encounter Visit Diagnoses Not on filedocumented in this encounter Additional Health Concerns Assessment Noted Time A fall risk assessment has been complete d for the patient 07/30/2024 8:29 AM EDT A Body Mass Index follow-up plan has been documented for the patient 05/28/2024 1:52 PM EST documented as of this encounter Care Teams Senior Dentist Relationship Specialty Start Date End Date Jevon Vazquez MD [address] [place] [address] #1 #1 [place] [id number] PCP - General 03/23/22 documented as of this encounter
--- OUTSIDE RECORDS SUMMARY | 2024-10-13 09:09 | XMS_ITS | Encounter Summary ---
Author Organization Healthcare Address [address] [place] [address] Care Team Providers Care Vacuum Form Operator Name Role Phone Jevon Vazquez MD Primary Care Provider [phone] Encounter Details Date Type Department Care Team ([facility] Contact Info) Description 09/19/2024 Orders Only [facility] CC Hematology/BMT and Cellular Therapy Program [address] [phone] 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, RN [facility] Social History Tobacco Use [...] Hematology/BMT and Cellular Therapy Program [address] [phone] 10/14/2024 11:30 AM EDT Office Visit [facility] Hematology/BMT and Cellular Therapy Program [address] [phone] Zonia Hoffman, CRIME VICTIM SPECIALIST 800 [facility] [address] [place] [phone] 10/14/2024 4:30 PM EDT Appointment [facility] H Infusion 800 [place] [address] 10/15/2024 2:00 PM EDT Appointment [facility] Infusion [address] [place] [address] 10/16/2024 2:00 PM EDT Appointment [facility] Infusion [address] [place] [address] 10/18/2024 1:00 PM EDT Appointment [facility] 2 744 [place] [address] 10/19/2024 1:00 PM EDT Appointment [facility] 2 744 [place] [address] 10/20/2024 3:30 PM EDT Appointment [facility]fusion [address] [place] [address] 10/21/2024 4:30 PM EDT Appointment [facility] 2 [address] [place] [address] 10/29/2024 1:00 PM EDT Clinical Support [facility] Hematology/BMT and Cellular Therapy Program [address] [address] 10/29/2024 1:30 PM EDT Office Visit [facility] CC Hematology/BMT and Cellular Therapy Program [address] [address] Zonia Hoffman, CRIME VICTIM SPECIALIST 800 [facility] [address] [place] [phone] documented as of this encounter Visit Diagnoses Not on filedocumented in this encounter Additional Health Concerns Assessment Noted Time A fall risk assessment has been complete d for the patient 09/19/2024 8:38 AM EDT A Body Mass Index follow-up plan has been documented for the patient 05/28/2024 1:52 PM EST documented as of this encounter Care Teams Vacuum Form Operator Relationship Specialty Start Date End Date Jevon Vazquez MD [address] [place] [address] #1 #1 [place] [id number] PCP - General 03/23/22 documented as of this encounter
--- OUTSIDE RECORDS SUMMARY | 2024-10-13 09:09 | XMS_ITS | Encounter Summary ---
Author Organization Healthcare Address [address] [place] [address] Care Team Providers Care Electrocardiograph Operator Name Role Phone Jevon Vazquez MD Primary Care Provider [phone] Encounter Details Date Type Department Care Team [...] Hematology/BMT and Cellular Therapy Program [address] [address] 10/14/2024 11:30 AM EDT Office Visit [facility] Hematology/BMT and Cellular Therapy Program [address] [address] Zonia Hoffman, RODDY 800 [facility] [address] [place] [phone] 10/14/2024 4:30 PM EDT Appointment [facility] Infusion 800 [place] [address] 10/15/2024 2:00 PM EDT Appointment [facility] Infusion [address] [place] [address] 10/16/2024 2:00 PM EDT Appointment [facility] Infusion [address] [place] [address] 10/18/2024 1:00 PM EDT Appointment [facility] 2 [address] [place] [address] 10/19/2024 1:00 PM EDT Appointment [facility] 2 [address] [place] [address] 10/20/2024 3:30 PM EDT Appointment [facility] Infusion [address] [place] [address] 10/21/2024 4:30 PM EDT Appointment [facility] 2 [address] [place] [address] 10/29/2024 1:00 PM EDT Clinical Support [facility] Hematology/BMT and Cellular Therapy Program [address] [address] 10/29/2024 1:30 PM EDT Office Visit [facility] Hematology/BMT and Cellular Therapy Program [address] [address] Zonia Hoffman, MACHINE HEEL BUILDER 800 [facility] [address] [place] [phone] documented as of this encounter Visit Diagnoses Not on filedocumented in this encounter Additional Health Concerns Assessment Noted Time A fall risk assessment has been complete d for the patient 07/30/2024 8:29 AM EDT A Body Mass Index follow-up plan has been documented for the patient 05/28/2024 1:52 PM EST documented as of this encounter Care Teams Electrocardiograph Operator Relationship Specialty Start Date End Date Jevon Vazquez MD [address] [place] [address] #1 #1 [place] [id number] PCP - General 03/23/22 documented as of this encounter
--- OUTSIDE RECORDS SUMMARY | 2024-10-13 09:09 | XMS_ITS | Encounter Summary ---
Author Organization [facility] Address [address] [place] [address] Care Team Providers Care Marketing Area Manager Name Role Phone Jevon Vazquez MD Primary Care Provider [phone] Encounter Details Date Type Department Care Team ([facility] Contact Info) Description 09/15/2024 Telephone [facility] CC Hematology/BMT and Cellular Therapy Program [address] [phone] Zonia Hoffman, SKILLS INSTRUCTOR 800 [facility] [address] [place] [phone] Social History Tobacco Use Types Packs/Day Years [...] Upcoming Encounters Date Type Department Care Team ([facility] Contact Info) Description 10/14/2024 11:00 AM EDT Clinical Support [facility] CC Hematology/BMT and Cellular Therapy Program [address] [place] [phone] 10/14/2024 11:30 AM EDT Office Visit [facility] Hematology/BMT and Cellular Therapy Program [address] [place] [phone] Zonia Hoffman, SKILLS INSTRUCTOR 800 [facility] [address] [place] [phone] 10/14/2024 4:30 PM EDT Appointment [facility] H Infusion 800 [place] [address] 10/15/2024 2:00 PM EDT Appointment [facility] Infusion [address] [place] [address] 10/16/2024 2:00 PM EDT Appointment [facility] Infusion 800 [place] [address] 10/18/2024 1:00 PM EDT Appointment [facility] 2 [address] [place] [address] 10/19/2024 1:00 PM EDT Appointment [facility] 2 [address] [place] [address] 10/20/2024 3:30 PM EDT Appointment [facility] Infusion [address] [place] [address] 10/21/2024 4:30 PM EDT Appointment [facility] 2 [address] [place] [address] 10/29/2024 1:00 PM EDT Clinical Support [facility] CC Hematology/BMT and Cellular Therapy Program [address] [address] 10/29/2024 1:30 PM EDT Office Visit [facility] CC Hematology/BMT and Cellular Therapy Program [address] [place] [address] Zonia Hoffman, SKILLS INSTRUCTOR 800 [facility] [address] [place] [phone] documented as of this encounter Visit Diagnoses Not on filedocumented in this encounter Additional Health Concerns Assessment Noted Time A fall risk assessment has been complete d for the patient 07/30/2024 8:29 AM EDT A Body Mass Index follow-up plan has been documented for the patient 05/28/2024 1:52 PM EST documented as of this encounter Care Teams Marketing Area Manager Relationship Specialty Start Date End Date Jevon Vazquez MD [address] [place] [address] #1 #1 [place] [id number] PCP - General 03/23/22 documented as of this encounter
--- OUTSIDE RECORDS SUMMARY | 2024-10-13 09:09 | XMS_ITS | Encounter Summary ---
Author Organization [facility] Address [address] [place] [address] Care Team Providers Care Cooky Machine Operator Name Role Phone Jevon Vazquez MD Primary Care Provider [phone] Reason for Visit * Reason Comments Med Refill Encounter Details Date Type Department Care Team ([facility] Contact Info) Description 01/30/2024 Refill [facility] CC Hematology/BMT and Cellular Therapy Program [address] [phone] [place] M[place]in[place] MD 800 [facility] [address] [place] [phone] Social History Tobacco Use Types Packs/Day Years [...] Upcoming Encounters Date Type Department Care Team ([facility] Contact Info) Description 10/14/2024 11:00 AM EDT Clinical Support [facility] CC Hematology/BMT and Cellular Therapy Program [address] [place] [address] 10/14/2024 11:30 AM EDT Office Visit [facility] CC Hematology/BMT and Cellular Therapy Program [address] [phone] Zonia Hoffman, JOB PLACEMENT SPECIALIST 800 [facility] [address] [place] [phone] 10/14/2024 4:30 PM EDT Appointment [facility] H Infusion 800 [place] [address] 10/15/2024 2:00 PM EDT Appointment [facility] Infusion [address] [place] [address] 10/16/2024 2:00 PM EDT Appointment [facility] H Infusion [address] [place] [address] 10/18/2024 1:00 PM EDT Appointment [facility] 2 [address] [place] [address] 10/19/2024 1:00 PM EDT Appointment [facility] 2 [address] [place] [address] 10/20/2024 3:30 PM EDT Appointment [facility] Infusion [address] [place] [address] 10/21/2024 4:30 PM EDT Appointment [facility] 2 [address] [place] [address] 10/29/2024 1:00 PM EDT Clinical Support [facility] CC Hematology/BMT and Cellular Therapy Program [address] [place] [address] 10/29/2024 1:30 PM EDT Office Visit [facility] CC Hematology/BMT and Cellular Therapy Program [address] [place] [address] Zonia Hoffman, JOB PLACEMENT SPECIALIST 800 [facility] [address] [place] [phone] documented as of this encounter Visit Diagnoses Not on filedocumented in this encounter Additional Health Concerns Assessment Noted Time A fall risk assessment has been complete d for the patient 01/11/2024 9:16 AM EDT A Body Mass Index follow-up plan has been documented for the patient 01/21/2024 6:16 AM EDT documented as of this encounter Care Teams Cooky Machine Operator Relationship Specialty Start Date End Date Jevon Vazquez MD [address] [place] [address] #1 #1 [place] [id number] PCP - General 03/23/22 documented as of this encounter
--- OUTSIDE RECORDS SUMMARY | 2024-10-13 09:09 | XMS_ITS | Encounter Summary ---
Author Organization Healthcare Address [address] [place] [address] Care Team Providers Care Lean Manufacturing Engineer Name Role Phone Jevon Vazquez MD [...] Hematology/BMT and Cellular Therapy Program [address] [address] 10/14/2024 11:30 AM EDT Office Visit [facility] CC Hematology/BMT and Cellular Therapy Program [address] [phone] Zonia Hoffman, RODDY 800 [facility] [address] [place] [address] 10/14/2024 4:30 PM EDT Appointment [facility] H Infusion [address] [place] [address] 10/15/2024 2:00 PM EDT Appointment [facility] H Infusion [address] [place] [address] 10/16/2024 2:00 PM EDT Appointment [facility] H Infusion [address] [place] [address] 10/18/2024 1:00 PM EDT Appointment [facility] 2 [address] [place] [address] 10/19/2024 1:00 PM EDT Appointment [facility] 2 [address] [place] [address] 10/20/2024 3:30 PM EDT Appointment [facility] Infusion [address] [place] [address] 10/21/2024 4:30 PM EDT Appointment [facility] 2 [address] [place] [address] 10/29/2024 1:00 PM EDT Clinical Support [facility] Hematology/BMT and Cellular Therapy Program [address] [address] 10/29/2024 1:30 PM EDT Office Visit [facility] CC Hematology/BMT and Cellular Therapy Program [address] [address] Zonia Hoffman, CARD CUTTER 800 [facility] [address] [place] [phone] documented as of this encounter Visit Diagnoses Not on filedocumented in this encounter Additional Health Concerns Assessment Noted Time A fall risk assessment has been complete d for the patient 07/30/2024 8:29 AM EDT A Body Mass Index follow-up plan has been documented for the patient 05/28/2024 1:52 PM EST documented as of this encounter Care Teams Lean Manufacturing Engineer Relationship Specialty Start Date End Date Jevon Vazquez MD [address] [place] [address] #1 #1 [place] [address] PCP - General 03/23/22 documented as of this encounter
--- OUTSIDE RECORDS SUMMARY | 2024-10-13 09:09 | XMS_ITS | Encounter Summary ---
Author Organization Healthcare Address [address] [place] [address] Care Team Providers Care Assistant Floor Covering Printer Name Role Phone Jevon Vazquez MD Primary Care Provider [phone] Encounter Details Date Type Department Care Team [...] Hematology/BMT and Cellular Therapy Program [address] [address] 10/14/2024 11:30 AM EDT Office Visit [facility] CC Hematology/BMT and Cellular Therapy Program [address] [phone] Zonia Hoffman, RODDY 800 [facility] [address] [place] [address] 10/14/2024 4:30 PM EDT Appointment [facility] H Infusion 800 [place] [address] 10/15/2024 2:00 PM EDT Appointment [facility] H Infusion [address] [place] [address] 10/16/2024 2:00 PM EDT Appointment [facility] Infusion [address] [place] [address] 10/18/2024 1:00 PM EDT Appointment [facility] 2 [address] [place] [address] 10/19/2024 1:00 PM EDT Appointment [facility] 2 [address] [place] [address] 10/20/2024 3:30 PM EDT Appointment [facility] Infusion [address] [place] [address] 10/21/2024 4:30 PM EDT Appointment [facility] 2 [address] [place] [address] 10/29/2024 1:00 PM EDT Clinical Support [facility] CC Hematology/BMT and Cellular Therapy Program [address] [address] 10/29/2024 1:30 PM EDT Office Visit [facility] CC Hematology/BMT and Cellular Therapy Program [address] [address] Zonia Hoffman, RECRUITING SCHEDULER 800 [facility] [address] [place] [phone] documented as of this encounter Visit Diagnoses Not on filedocumented in this encounter Additional Health Concerns Assessment Noted Time A fall risk assessment has been complete d for the patient 09/19/2024 8:38 AM EDT A Body Mass Index follow-up plan has been documented for the patient 05/28/2024 1:52 PM EST documented as of this encounter Care Teams Assistant Floor Covering Printer Relationship Specialty Start Date End Date Jevon Vazquez MD [address] [place] [address] #1 #1 [place] [address] PCP - General 03/23/22 documented as of this encounter
--- OUTSIDE RECORDS SUMMARY | 2024-10-13 09:09 | XMS_ITS | Encounter Summary ---
Author Organization [facility] Address [address] [place] [address] Care Team Providers Care Benefits Clerk Name Role Phone Jevon Vazquez MD Primary Care Provider [phone] Encounter Details Date Type Department Care Team ([facility] Contact Info) Description 09/19/2024 Telephone P[facility] CC Hematology/BMT and Cellular Therapy Program [address] [place] [address] Romana Richmond RN [facility] Social History Tobacco [...] Hematology/BMT and Cellular Therapy Program [address] [place] [address] 10/14/2024 11:30 AM EDT Office Visit PAV Hematology/BMT and Cellular Therapy Program [address] [place] [address] Zonia Hoffman, BUNDLE PERSON 800 [facility] [address] [place] [phone] 10/14/2024 4:30 PM EDT Appointment [facility] H Infusion 800 [place] [address] 10/15/2024 2:00 PM EDT Appointment [facility] Infusion [address] [place] [address] 10/16/2024 2:00 PM EDT Appointment [facility] Infusion [address] [place] [address] 10/18/2024 1:00 PM EDT Appointment [facility] 2 [address] [place] [address] 10/19/2024 1:00 PM EDT Appointment [facility] 2 [address] [place] [address] 10/20/2024 3:30 PM EDT Appointment [facility] Infusion [address] [place] [address] 10/21/2024 4:30 PM EDT Appointment [facility] 2 [address] [place] [address] 10/29/2024 1:00 PM EDT Clinical Support PAV Hematology/BMT and Cellular Therapy Program [address] [place] [address] 10/29/2024 1:30 PM EDT Office Visit PAV Hematology/BMT and Cellular Therapy Program [address] [place] [address] Zonia Hoffman, BUNDLE PERSON 800 [facility] [address] [place] [phone] documented as of this encounter Visit Diagnoses Not on filedocumented in this encounter Additional Health Concerns Assessment Noted Time A fall risk assessment has been complete d for the patient 09/19/2024 8:38 AM EDT A Body Mass Index follow-up plan has been documented for the patient 05/28/2024 1:52 PM EST documented as of this encounter Care Teams Benefits Clerk Relationship Specialty Start Date End Date Jevon Vazquez MD [address] [place] [address] #1 #1 [place] [id number] PCP - General 03/23/22 documented as of this encounter
--- OUTSIDE RECORDS SUMMARY | 2024-10-13 09:09 | XMS_ITS | Encounter Summary ---
Author Organization Healthcare Address [address] [place] [address] Care Team Providers Care Gold Plater Name Role Phone Jevon Vazquez MD Primary Care Provider [phone] Encounter Details Date Type Department Care Team [...] Hematology/BMT and Cellular Therapy Program [address] [address] 10/14/2024 11:30 AM EDT Office Visit [facility] Hematology/BMT and Cellular Therapy Program [address] [address] Zonia Hoffman, RODDY 800 [facility] [address] [place] [address] 10/14/2024 4:30 PM EDT Appointment [facility] H Infusion 800 [place] [address] 10/15/2024 2:00 PM EDT Appointment [facility] Infusion [address] [place] [address] 10/16/2024 2:00 PM EDT Appointment [facility] Infusion [address] [place] [address] 10/18/2024 1:00 PM EDT Appointment [facility] 2 [address] [place] [address] 10/19/2024 1:00 PM EDT Appointment [facility] 2 [address] [place] [address] 10/20/2024 3:30 PM EDT Appointment [facility] Infusion [address] [place] [address] 10/21/2024 4:30 PM EDT Appointment [facility] 2 [address] [place] [address] 10/29/2024 1:00 PM EDT Clinical Support P[facility] CC Hematology/BMT and Cellular Therapy Program [address] [address] 10/29/2024 1:30 PM EDT Office Visit [facility] CC Hematology/BMT and Cellular Therapy Program [address] [address] Zonia Hoffman, MANAGER SCHOOL 800 [facility] [address] [place] [phone] documented as of this encounter Visit Diagnoses Not on filedocumented in this encounter Additional Health Concerns Assessment Noted Time A fall risk assessment has been complete d for the patient 07/30/2024 8:29 AM EDT A Body Mass Index follow-up plan has been documented for the patient 05/28/2024 1:52 PM EST documented as of this encounter Care Teams Gold Plater Relationship Specialty Start Date End Date Jevon Vazquez MD [address] [place] [address] #1 #1 [place] [address] PCP - General 03/23/22 documented as of this encounter
--- OUTSIDE RECORDS SUMMARY | 2024-10-13 09:09 | XMS_ITS | Encounter Summary ---
Author Organization Healthcare Address [address] [place] [address] Care Team Providers Care Gift Shop Clerk Name Role Phone Jevon Vazquez MD Primary Care Provider [phone] Encounter Details Date Type Department Care Team [...] Hematology/BMT and Cellular Therapy Program [address] [address] 10/14/2024 11:30 AM EDT Office Visit [facility] Hematology/BMT and Cellular Therapy Program [address] [address] Zonia Hoffman, RODDY 800 [facility] [address] [place] [phone] 10/14/2024 4:30 PM EDT Appointment [facility] 800 [place] [address] 10/15/2024 2:00 PM EDT Appointment [facility] 800 [place] [address] 10/16/2024 2:00 PM EDT Appointment [facility] 800 [place] [address] 10/18/2024 1:00 PM EDT Appointment [facility] 2 744 [place] [address] 10/19/2024 1:00 PM EDT Appointment [facility] 2 744 [place] [address] 10/20/2024 3:30 PM EDT Appointment [facility] 800 [place] [address] 10/21/2024 4:30 PM EDT Appointment [facility] 2 744 [place] [address] 10/29/2024 1:00 PM EDT Clinical Support [facility] Hematology/BMT and Cellular Therapy Program [address] [address] 10/29/2024 1:30 PM EDT Office Visit [facility] Hematology/BMT and Cellular Therapy Program [address] [address] Zonia Hoffman, CAFETERIA COUNTER ATTENDANT 800 [facility] [address] [place] [phone] documented as of this encounter Visit Diagnoses Not on filedocumented in this encounter Additional Health Concerns Assessment Noted Time A fall risk assessment has been complete d for the patient 09/30/2024 9:33 AM EDT A Body Mass Index follow-up plan has been documented for the patient 05/28/2024 1:52 PM EST documented as of this encounter Care Teams Gift Shop Clerk Relationship Specialty Start Date End Date Jevon Vazquez MD [address] [place] [address] #1 [address] [place] [address] PCP - General 03/23/22 documented as of this encounter
--- OUTSIDE RECORDS SUMMARY | 2024-10-13 09:09 | XMS_ITS | Encounter Summary ---
Author Organization Healthcare Address [address] [place] [address] Care Team Providers Care Rewriter Name Role Phone Jevon Vazquez MD Primary Care Provider [phone] Encounter Details Date Type Department Care Team [...] Hematology/BMT and Cellular Therapy Program [address] [address] 10/14/2024 11:30 AM EDT Office Visit [facility] Hematology/BMT and Cellular Therapy Program [address] [address] Zonia Hoffman, RODDY 800 [facility] [address] [place] [address] 10/14/2024 4:30 PM EDT Appointment [facility] 800 [place] [address] 10/15/2024 2:00 PM EDT Appointment [facility] [address] [place] [address] 10/16/2024 2:00 PM EDT Appointment [facility] [address] [place] [address] 10/18/2024 1:00 PM EDT Appointment [facility] 2 [address] [place] [address] 10/19/2024 1:00 PM EDT Appointment [facility] 2 [address] [place] [address] 10/20/2024 3:30 PM EDT Appointment [facility] [address] [place] [address] 10/21/2024 4:30 PM EDT Appointment [facility] 2 [address] [place] [address] 10/29/2024 1:00 PM EDT Clinical Support [facility] Hematology/BMT and Cellular Therapy Program [address] [address] 10/29/2024 1:30 PM EDT Office Visit [facility] Hematology/BMT and Cellular Therapy Program [address] [address] Zonia Hoffman, HOT STONE SETTER 800 [facility] [address] [place] [phone] documented as of this encounter Visit Diagnoses Not on filedocumented in this encounter Additional Health Concerns Assessment Noted Time A fall risk assessment has been complete d for the patient 09/19/2024 8:38 AM EDT A Body Mass Index follow-up plan has been documented for the patient 05/28/2024 1:52 PM EST documented as of this encounter Care Teams Rewriter Relationship Specialty Start Date End Date Jevon Vazquez MD [address] [place] [address] #1 #1 [place] [address] PCP - General 03/23/22 documented as of this encounter
--- OUTSIDE RECORDS SUMMARY | 2024-10-13 09:09 | XMS_ITS | Encounter Summary ---
Author Organization [facility] Address [address] [place] [address] Care Team Providers Care Translational Specialist Name Role Phone Jevon Vazquez MD Primary Care Provider [phone] Reason for Visit * Reason Comments Med Refill Encounter Details Date Type Department Care Team ([facility] Contact Info) Description 09/12/2024 Refill [facility] Hematology/BMT and Cellular Therapy Program [address] [phone] [place] Mckin[place] MD 800 [facility] [address] [place] [phone] Social History Tobacco Use Types Packs/Day Years [...] Date Type Department Care Team ([facility] Contact Info) Description 10/14/2024 11:00 AM EDT Clinical Support [facility] Hematology/BMT and Cellular Therapy Program [address] [phone] 10/14/2024 11:30 AM EDT Office Visit [facility] Hematology/BMT and Cellular Therapy Program [address] [address] Zonia Hoffman, STOCK TRADER 800 [facility] [address] [place] [phone] 10/14/2024 4:30 PM EDT Appointment [facility] 800 [place] [address] 10/15/2024 2:00 PM EDT Appointment [facility] 800 [place] [address] 10/16/2024 2:00 PM EDT Appointment [facility] 800 [place] [address] 10/18/2024 1:00 PM EDT Appointment [facility] 2 [address] [place] [address] 10/19/2024 1:00 PM EDT Appointment [facility] 2 [address] [place] [address] 10/20/2024 3:30 PM EDT Appointment [facility] [address] [place] [address] 10/21/2024 4:30 PM EDT Appointment [facility] 2 [address] [place] [address] 10/29/2024 1:00 PM EDT Clinical Support [facility] Hematology/BMT and Cellular Therapy Program [address] [place] [address] 10/29/2024 1:30 PM EDT Office Visit [facility] Hematology/BMT and Cellular Therapy Program [address] [place] [address] Zonia Hoffman, STOCK TRADER [address] [facility] [address] [place] [phone] documented as of this encounter Visit Diagnoses Not on filedocumented in this encounter Additional Health Concerns Assessment Noted Time A fall risk assessment has been complete d for the patient 07/30/2024 8:29 AM EDT A Body Mass Index follow-up plan has been documented for the patient 05/28/2024 1:52 PM EST documented as of this encounter Care Teams Translational Specialist Relationship Specialty Start Date End Date Jevon Vazquez MD [address] [place] [address] #1 #1 [place] [address] PCP - General 03/23/22 documented as of this encounter
--- OUTSIDE RECORDS SUMMARY | 2024-10-13 09:09 | XMS_ITS | Encounter Summary ---
Author Organization Healthcare Address [address] [place] [address] Care Team Providers Care Button Breaker Name Role Phone Jevon Vazquez MD Primary Care Provider [phone] Encounter Details Date Type Department Care Team [...] Hematology/BMT and Cellular Therapy Program [address] [address] 10/14/2024 11:30 AM EDT Office Visit [facility] Hematology/BMT and Cellular Therapy Program [address] [address] Zonia Hoffman, RODDY 800 [facility] [address] [place] [address] 10/14/2024 4:30 PM EDT Appointment [facility] 800 [place] [address] 10/15/2024 2:00 PM EDT Appointment [facility] 800 [place] [address] 10/16/2024 2:00 PM EDT Appointment [facility] 800 [place] [address] 10/18/2024 1:00 PM EDT Appointment [facility] 2 7[address] [place] [address] 10/19/2024 1:00 PM EDT Appointment [facility] 2 [address] [place] [address] 10/20/2024 3:30 PM EDT Appointment [facility] 800 [place] [address] 10/21/2024 4:30 PM EDT Appointment [facility] 2 [address] [place] [address] 10/29/2024 1:00 PM EDT Clinical Support [facility] Hematology/BMT and Cellular Therapy Program [address] [address] 10/29/2024 1:30 PM EDT Office Visit [facility] Hematology/BMT and Cellular Therapy Program [address] [address] Zonia Hoffman, HEAVY EQUIPMENT OPERATOR APPRENTICE 800 [facility] [address] [place] [phone] documented as of this encounter Visit Diagnoses Not on filedocumented in this encounter Additional Health Concerns Assessment Noted Time A fall risk assessment has been complete d for the patient 07/30/2024 8:29 AM EDT A Body Mass Index follow-up plan has been documented for the patient 05/28/2024 1:52 PM EST documented as of this encounter Care Teams Button Breaker Relationship Specialty Start Date End Date Jevon Vazquez MD [address] [place] [address] #1 [address] [place] [address] PCP - General 03/23/22 documented as of this encounter
--- OUTSIDE RECORDS SUMMARY | 2024-10-13 09:09 | XMS_ITS | Encounter Summary ---
Author Organization Healthcare Address [address] [place] [address] Care Team Providers Care Activities Coordinator Name Role Phone Jevon Vazquez MD Primary Care Provider [phone] Encounter Details Date Type Department Care Team (Latest Contact Info) Description 10/11/2024 Travel Social History Tobacco Use Types Packs/Day [...] Hematology/BMT and Cellular Therapy Program [address] [address] 10/14/2024 11:30 AM EDT Office Visit [facility] Hematology/BMT and Cellular Therapy Program [address] [address] Zonia Hoffman, RODDY 800 [facility] [address] [place] [phone] 10/14/2024 4:30 PM EDT Appointment [facility] 800 [place] [address] 10/15/2024 2:00 PM EDT Appointment [facility] 800 [place] [address] 10/16/2024 2:00 PM EDT Appointment [facility] 800 [place] [address] 10/18/2024 1:00 PM EDT Appointment [facility] 2 7[address] [place] [address] 10/19/2024 1:00 PM EDT Appointment [facility] 2 7[address] [place] [address] 10/20/2024 3:30 PM EDT Appointment [facility] 800 [place] [address] 10/21/2024 4:30 PM EDT Appointment [facility] 2 7[address] [place] [address] 10/29/2024 1:00 PM EDT Clinical Support [facility] Hematology/BMT and Cellular Therapy Program [address] [address] 10/29/2024 1:30 PM EDT Office Visit [facility] Hematology/BMT and Cellular Therapy Program [address] [address] Zonia Hoffman, NETWORK ENGINEERING ADVISOR 800 [facility] [address] [place] [phone] documented as of this encounter Visit Diagnoses Not on filedocumented in this encounter Additional Health Concerns Assessment Noted Time A fall risk assessment has been complete d for the patient 09/30/2024 9:33 AM EDT A Body Mass Index follow-up plan has been documented for the patient 05/28/2024 1:52 PM EST documented as of this encounter Care Teams Activities Coordinator Relationship Specialty Start Date End Date Jevon Vazquez MD [address] [place] [address] #1 #1 [place] [address] PCP - General 03/23/22 documented as of this encounter
--- OUTSIDE RECORDS SUMMARY | 2024-10-13 09:09 | XMS_ITS | Encounter Summary ---
Author Organization Healthcare Address [address] [place] [address] Care Team Providers Care Renewable Energy Division Manager Name Role Phone Jevon Vazquez MD Primary Care Provider [phone] Encounter Details Date Type Department Care Team (Latest Contact Info) Description 10/12/2024 Travel Social History Tobacco Use Types Packs/Day [...] Hematology/BMT and Cellular Therapy Program [address] [address] 10/14/2024 11:30 AM EDT Office Visit [facility] Hematology/BMT and Cellular Therapy Program [address] [address] Zonia Hoffman, RODDY 800 [facility] [address] [place] [phone] 10/14/2024 4:30 PM EDT Appointment [facility] 800 [place] [address] 10/15/2024 2:00 PM EDT Appointment [facility] 800 [place] [address] 10/16/2024 2:00 PM EDT Appointment [facility] 800 [place] [address] 10/18/2024 1:00 PM EDT Appointment [facility] 2 [address] [place] [address] 10/19/2024 1:00 PM EDT Appointment [facility] 2 [address] [place] [address] 10/20/2024 3:30 PM EDT Appointment [facility] 800 [place] [address] 10/21/2024 4:30 PM EDT Appointment [facility] 2 [address] [place] [address] 10/29/2024 1:00 PM EDT Clinical Support [facility] Hematology/BMT and Cellular Therapy Program [address] [address] 10/29/2024 1:30 PM EDT Office Visit [facility] Hematology/BMT and Cellular Therapy Program [address] [address] Zonia Hoffman, SAP INTEGRATION ARCHITECT 800 [facility] [address] [place] [phone] documented as of this encounter Visit Diagnoses Not on filedocumented in this encounter Additional Health Concerns Assessment Noted Time A fall risk assessment has been complete d for the patient 09/30/2024 9:33 AM EDT A Body Mass Index follow-up plan has been documented for the patient 05/28/2024 1:52 PM EST documented as of this encounter Care Teams Renewable Energy Division Manager Relationship Specialty Start Date End Date Jevon Vazquez MD [address] [place] [address] #1 [address] [place] [address] PCP - General 03/23/22 documented as of this encounter
--- OUTSIDE RECORDS SUMMARY | 2024-10-13 09:09 | XMS_ITS ---
Author Organization [facility] Address [address] [place] [address] Care Team Providers Care Bandage Winding Machine Operator Name Role Phone Jevon Vazquez MD Primary Care Provider [phone] Active Problems Problem Noted Date Diagnosed Date [...]
--- OUTSIDE RECORDS SUMMARY | 2024-10-13 09:10 | XMS_ITS | Encounter Summary ---
Author Organization [facility] Address [address] [place] [address] Care Team Providers Care Finance Officer Name Role Phone Jevon Vazquez MD Primary Care Provider [phone] Encounter Details Date Type Department Care Team ([facility] Contact Info) Description 10/08/2024 Orders Only [facility] Hematology/BMT and Cellular Therapy Program [address] [phone] 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, RN [facility] Acute [...] Hematology/BMT and Cellular Therapy Program [address] [phone] 10/14/2024 11:30 AM EDT Office Visit [facility] Hematology/BMT and Cellular Therapy Program [address] [phone] Zonia Hoffman, BOOKMOBILE DRIVER 800 [facility] [facility] [address] [place] [address] 10/14/2024 4:30 PM EDT Appointment [facility] 800 [place] [address] 10/15/2024 2:00 PM EDT Appointment [facility] [address] [place] [address] 10/16/2024 2:00 PM EDT Appointment [facility] [address] [place] [address] 10/18/2024 1:00 PM EDT Appointment [facility] 2 [address] [place] [address] 10/19/2024 1:00 PM EDT Appointment [facility] 2 [address] [place] [address] 10/20/2024 3:30 PM EDT Appointment [facility] [address] [place] [address] 10/21/2024 4:30 PM EDT Appointment [facility] 2 [address] [place] [address] 10/29/2024 1:00 PM EDT Clinical Support [facility] Hematology/BMT and Cellular Therapy Program [address] [place] [address] 10/29/2024 1:30 PM EDT Office Visit [facility] Hematology/BMT and Cellular Therapy Program [address] [place] [address] Zonia Hoffman, BOOKMOBILE DRIVER 800 [facility] [facility] [address] [place] [phone] Scheduled Orders Name Type Priority Associated Diagnoses [...] documented as of this encounter Care Teams Finance Officer Relationship Specialty Start Date End Date Jevon Vazquez MD [address] [place] [address] #1 #1 [place] [address] PCP - General 03/23/22 documented as of this encounter
--- OUTSIDE RECORDS SUMMARY | 2024-10-13 09:10 | XMS_ITS | Encounter Summary ---
Author Organization Healthcare Address [address] [place] [address] Care Team Providers Care Motor Vehicle Escort Driver Name Role Phone Jevon Vazquez MD Primary Care Provider [phone] Encounter Details Date Type Department Care Team ([facility] st Contact Info) Description 07/15/2024 Telephone [facility] Hematology/BMT and Cellular Therapy Program [address] [address] Zonia Hoffman, ROD HANGER 800 [facility] [address] [place] [phone] Social History Tobacco Use Types Packs/Day Years [...] Reason for Call: Per PT call to [facility], fabiana Hoffman appt clarity, asking to have Jorge from clinical care team. Best contact number and optimal time of day to reach caller: [phone] Note: Please do not reply to this [...] ([facility] st Contact Info) Description 10/14/2024 11:00 AM EDT Clinical Support [facility] Hematology/BMT and Cellular Therapy Program [address] [place] [phone] 10/14/2024 11:30 AM EDT Office Visit PAV Hematology/BMT and Cellular Therapy Program [address] [address] Zonia Hoffman, RODDY 800 [facility] [address] [place] [address] 10/14/2024 4:30 PM EDT Appointment [facility] 800 [place] [address] 10/15/2024 2:00 PM EDT Appointment [facility] [address] [place] [address] 10/16/2024 2:00 PM EDT Appointment [facility] 800 [place] [address] 10/18/2024 1:00 PM EDT Appointment [facility] 2 [address] [place] [address] 10/19/2024 1:00 PM EDT Appointment [facility] 2 [address] [place] [address] 10/20/2024 3:30 PM EDT Appointment [facility] [address] [place] [address] 10/21/2024 4:30 PM EDT Appointment [facility] 2 [address] [place] [address] 10/29/2024 1:00 PM EDT Clinical Support PAV Hematology/BMT and Cellular Therapy Program [address] [place] [address] 10/29/2024 1:30 PM EDT Office Visit PAV Hematology/BMT and Cellular Therapy Program [address] [place] [address] Zonia Hoffman, ROD HANGER 800 [facility] [address] [place] [phone] documented as of this encounter Visit Diagnoses Not on filedocumented in this encounter Additional Health Concerns Assessment Noted Time A fall risk assessment has been complete d for the patient 06/18/2024 10:22 AM EST A Body Mass Index follow-up plan has been documented for the patient 05/28/2024 1:52 PM EST documented as of this encounter Care Teams Motor Vehicle Escort Driver Relationship Specialty Start Date End Date Jevon Vazquez MD [address] [place] [address] #1 #1 [place] [address] PCP - General 03/23/22 documented as of this encounter
--- OUTSIDE RECORDS SUMMARY | 2024-10-13 09:10 | XMS_ITS | Clinical Summary ---
Author Organization [facility] Address [address] [place] [address] Care Team Providers Care Lease Operator Name Role Phone Jevon Vazquez MD Primary Care Provider [phone] Allergies No known active allergies Medications amLODIPine (Norvasc) 5 MG tablet Take 1 tablet (5 mg) by mouth daily. 2 Active pioglitazone (Actos) 30 MG tablet Take 1 tablet (30 mg) by mouth daily. Active fenofibrate (Tricor) 145 MG tablet Take 1 tablet (145 mg) by mouth daily. 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 30 tablet 5 4 Active venetoclax (Venclexta) 100 MG tablet Take 2 tablets (200 mg) by mouth 1 (one) time each day. Take on days 1 - 21 (7 days off) of a 28 day cycle. 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 60 tablet 2 5 Active fluconazole (Diflucan) 200 MG tabletIndicatio ns:Immunosuppre ssed status (CMS/HCC) Take 2 tablets by mouth daily. 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 30 tablet 2 5 Active potassium chloride CR (K-Tab) 20 MEQ ER tablet Take 1 tablet by mouth twice daily 60 tablet 5 Active Active Problems Problem Noted Date Diagnosed Date 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 Encounters Date Type Department Care Team Description 10/12/2024 Travel 10/11/2024 Travel 10/09/2024 Travel 10/08/2024 Travel 10/08/2024 Orders Only [facility] Cellular Therapy Program [address] [place] [address] [phone] 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 voip technician 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) 10/07/2024 Travel 09/30/2024 9:30 AM EDT Office Visit [facility] [address] [place] [address] [phone] Zonia Hoffman APRN 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) 09/30/2024 9:00 AM EDT Clinical Support [facility] [address] [place] [address] [phone] Jyoti Kemp 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) 09/30/2024 Telephone [facility] [address] [place] [address] [phone] Zoraida Good RN 09/30/2024 Travel 09/29/2024 Travel 09/28/2024 Travel 09/27/2024 Travel 09/26/2024 Travel 09/25/2024 Travel 09/24/2024 Travel 09/23/2024 Travel 09/19/2024 12:00 PM EDT Procedure Visit [facility] Therapy [facility] [address] [place] [phone] Lexi Ferraro, INJECTION MOLDING MACHINE OPERATOR 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) 09/19/2024 7:30 AM EDT Clinical Support [facility] Therapy [facility] [address] [phone] 09/19/2024 Telephone [facility] [address] [phone] Romana Richmond, AKBAR 09/19/2024 Orders Only [facility] Therapy [facility] [address] [phone] 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, RN 09/19/2024 Travel 09/15/2024 Telephone [facility] Therapy [facility] [address] [phone] Zonia Hoffman, INJECTION MOLDING MACHINE OPERATOR 09/15/2024 Travel 09/14/2024 Travel 09/13/2024 Travel 09/12/2024 Travel 09/12/2024 Refill [facility] Therapy [facility] [address] [phone] New Mckinney MD 09/11/2024 Travel 09/10/2024 Travel 09/01/2024 Telephone [facility] [address] [phone] Zonia Hoffman, INJECTION MOLDING MACHINE OPERATOR 08/31/2024 Travel 08/30/2024 Travel 08/18/2024 Telephone [facility] [address] [phone] Romana Gorman, INJECTION MOLDING MACHINE OPERATOR 08/17/2024 Travel 08/16/2024 Travel 08/15/2024 Travel 08/13/2024 Travel 07/30/2024 8:30 AM EDT Office Visit [facility] Therapy [facility] [address] [phone] Zonia Hoffman, INJECTION MOLDING MACHINE OPERATOR Pancytopenia (Primary Dx) 07/30/2024 8:00 AM EDT Clinical Support [facility] [address] [phone] Pancytopenia 07/30/2024 Telephone [facility] [address] [phone] Romana Richmond, RN 07/30/2024 Refill [facility] Therapy [facility] [address] [phone] Daxa Elliott, voip technician myeloid leukemia not having achieved remission ([facility]/HCC); Immunosuppressed status (CMS/HCC) 07/30/2024 Travel 07/29/2024 Travel 07/28/2024 Travel 07/27/2024 Travel 07/26/2024 Travel 07/24/2024 Travel 07/23/2024 Travel 07/19/2024 Refill [facility] Therapy [facility] [address] [phone] Zonia Hoffman, INJECTION MOLDING MACHINE OPERATOR 07/16/2024 9:00 AM EDT Office Visit [facility] Therapy [facility] [address] [phone] Zonia Hoffman, INJECTION MOLDING MACHINE OPERATOR Pancytopenia (Primary Dx); 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) 07/16/2024 8:30 AM EDT Clinical Support [facility] Therapy [facility] [address] [facility], [address] [place] [address] [place] [address] 07/16/2024 Travel 07/15/2024 Travel 07/15/2024 Telephone [facility] Cellular Therapy Program [address] [facility], [address] [place] [address] [place] [address] Zonia Hoffman, INJECTION MOLDING MACHINE OPERATOR 07/14/2024 Travel 07/13/2024 Travel from Last 3 Months Immunizations Immunization [...] Upcoming Encounters Date Type Department Care Team ([facility] Contact Info) Description 10/14/2024 11:00 AM EDT Clinical Support [facility] Cellular Therapy Program [address] [address] 10/14/2024 11:30 AM EDT Office Visit [facility] Cellular Therapy [facility] [address] [place] [address] Zonia Hoffman, INJECTION MOLDING MACHINE OPERATOR 800 [facility] [address] [place] [phone] 10/14/2024 4:30 PM EDT Appointment [facility] [address] [place] [address] 10/15/2024 2:00 PM EDT Appointment [facility] [address] [place] [address] 10/16/2024 2:00 PM EDT Appointment [facility] [address] [place] [address] 10/18/2024 1:00 PM EDT Appointment [facility] 2 [address] [place] [address] 10/19/2024 1:00 PM EDT Appointment [facility] 2 [address] [place] [address] 10/20/2024 3:30 PM EDT Appointment [facility] [address] [place] [address] 10/21/2024 4:30 PM EDT Appointment [facility] 2 [address] [place] [address] 10/29/2024 1:00 PM EDT Clinical Support [facility] Therapy [facility] [address] [place] [address] 10/29/2024 1:30 PM EDT Office Visit [facility] Cellular Therapy Program [address] [place] [address] Zonia Hoffman, INJECTION MOLDING MACHINE OPERATOR 800 [facility] [address] [place] [phone] Health Maintenance Due Date Last Done Comments [...] UKY-Zoster Vaccines (1 of 2) 05/16/2023 03/21/2023 YOO-GOROB-45 Vaccine (4 - 2023- season) 2023 02/18/2021, 07/10/2020, 06/12/2020 [...] this topic Medical Devices Implanted Type Area Securities Sales Associate Device Identifier Shelf Expiration Date Model / Serial / Lot [employer] 8fr - [id number] Implanted:Qty: 1 on 01/21/2024 by Ness Sargent MD at [facility] [employer]-[id number] / / Procedures Procedure Name Priority Date/Time [...] Final Res ult [facility] [address] [place] [address] * (ABNORMAL) Comprehensive Metabolic Panel, Plasma (09/30/2024 [...] Final Res ult [facility] [address] [place] [address] * BIOPSY BONE MARROW (09/19/2024 12:00 PM [...] to surronding structures. Alternatives discussed: Delayed treatment Bonifay protocol: Procedure explained and questions answered to [...] ORDERABLES Final Re sult [facility] [address] [place] [address] * Transfuse platelets, Irradiated (09/19/2024 10:02 AM EDT) us Lexi Ferraro APRN BLOOD TRANSFUSION ORDERABL ES Final Result * Prepare Leukocyte Reduced Platelets (09/19/2024 9:08 AM EDT) Product Code [id number] CH BLOO D BANK Dispense Status Transfused BLOOD BANK Blood Expiration Date [id number] BLOOD BANK Unit Number [id number] CH B LOOD BANK Product Blood Type 6200 BLOOD BANK Blood Type A+ BLOOD BANK us Provider Not In System BLOOD BANK PRODUCT ORD ERABLES Final Result Performing Organization Address [facility] de Phone Number BLOOD BANK [address] [place] [address], * Myeloid Focused Panel, 50 gene (09/19/2024 7:29 AM EDT) Interpretation The following two (2) genes, TP53 and DNMT3A, with persistent variants have been detected in this bone marrow specimen. The variant, p.[id number], in TP53 gene and the variant, p.[id number], in the RUNX 1 gene are not detectable at current cutoff and coverage established in this lab. Gene: TP53 Mutation: c.814G>A; p.Jkx521Vtn Allele Frequency (%): 37% (45% Dec 2023) ID: [id number] Gene: DNMT3A Mutation: c.1522delC; p.[id number] 3 Allele Frequency (%): 36% (48% Dec 2023) Additional Details on Mutation Identified: Gene Transcript Genome Chrom Coordinate RefVar DNMT3A [id number] Hg19 2 [id number] delC TP53 NM_000546.5 Hg19 17 [id number] G>A 09/29/2024 4:05 PM EDT [facility] Methodology The following 50 genes were [...] then sequenced on the Illumina NextSeq 2000 ([employer] [place]). A custom bioinformatics pipeline aligns [...] of hematologic malignancies. 09/29/2024 4:05 PM T [facility] Disclaimer This test was developed and its performance characteristics determined by the Clinical Molecular and Genomic Pathology Laboratory at the [facility]. It has not been cleared or approved by the U.S. Food and Drug Administration. This test does not require FDA approval. This test is used for clinical purposes. It should not be regarded as investigational or for research. This laboratory is certified under the Clinical laboratory Improvement Amendments of 1988 (CLIA-88) as qualified to perform high complexity clinical laboratory testing. 09/29/2024 4:05 PM T [facility] Pathologist Signature Reviewed by: Corey Tejada 09/29/2024 4:05 PM T [facility] Bone Marrow Specimen from bone marrow obtained by aspiration / Unknown Non-blood Collection / Unknown 09/19/2024 7:29 AM EDT 09/19/2024 12:03 PM EDT New Mckinney MD LAB MOLECULAR DIAGNOSTICS ORD ERABLES Final Result Performing Organization Address [facility]/ZIP Co de Phone Number [facility] [address] [place] [address], * Chromosome Karyotype, Oncology (09/19/2024 7:29 AM EDT) Specimen Type Bone Marrow 09/24/2024 2:[address] [facility] Clinical Indication Myelodysplastic Syndrome 09/24/2024 2:[address] [facility] Specimen Adequacy Adequate 025 2:37 PM EDT [facility] Chromosome Analysis Result Giemsa-banded metaphase cells from unstimulated bone marrow cultures showed a 46,XX[20] chromosome pattern. 09/24/2024 2:37 PM EDT [facility] Interpretation Normal female chromosome analysis. No clonal abnormalities were detected at current resolution. Clinical correlation is recommended. # cells counted = 20 # cells analyzed = 20 # cells karyotyped = 2 Band resolution: 450-525 09/24/2024 2:[address] [facility] Pathologist Signature Reviewed by: Corey Tejada 09/24/2024 2:37 PM EDT [facility] Bone Marrow Non-blood Collection / Unknown 09/19/2024 7:29 AM EDT 09/19/2024 12:35 PM EDT New Mckinney MD LAB CYTOGENETICS ORDERABLES F inal Result Performing Organization Address City/[facility]/ZIP Co de Phone Number [facility] [address] [place] [address] * Leukemia/Lymphoma - Immunophenotyping by Flow Cytometry (09/19/2024 7:29 AM EDT) Clinical Indication AML 09/22/2024 10:[address] [facility] Flow Cytometry Interpretation A. BONE MARROW FOR FLOW CYTOMETRY: - MIXED MARROW ELEMENTS WITH NO EVIDENCE OF INCREASED BLASTS OR ABNORMAL LYMPHOID POPULATIONS, SEE COMMENT. 09/22/2024 10:29 AM EDT [facility] Comments CD45/side scatter analysis shows [...] light chains 09/22/2024 10:[address] [facility] Disclaimer This test was developed and its performance characteristics determined by the Immuno-Molecular Pathology Laboratory at the [facility]. It has not been cleared or approved [...] on the report. 09/22/2024 10:[address] [facility] Pathologist Signature Reviewed by: Lisandra Epstein MD 09/22/2024 10:29 AM EDT [facility] MRD Indicated Test Not Indicated 12/2024 10:29 AM EDT [facility] Bone Marrow Specimen from bone marrow obtained by aspiration / Unknown Non-blood Collection / Unknown 09/19/2024 7:29 AM EDT 09/19/2024 12:13 PM EDT us New Mckinney MD LAB FLOW CYTOMETRY ORDERABLES Final Result [facility] [address] [place] [address] * Bone marrow exam (09/19/2024 7:29 AM EDT) Case Report Bone Marrow Case: [id number] Authorizing Provider: New Mkcinney MD Collected: 09/19/2024 0729 Ordering Location: [facility] Hematology/BMT and Received: 09/19/2024 [facility] Cellular Therapy Program Pathologist: Lisandra Epstein MD Specimens: A) - Bone Marrow Aspirate, right B) - Bone Marrow Biopsy, right C) - Peripheral Blood for Bone Marrow 3:15 PM EDT [facility] Cytogenetics Report, Addendum Chromosome Analysis Result Giemsa-banded metaphase cells from unstimulated bone marrow cultures showed a 46,XX[20] chromosome pattern. Interpretation Normal female chromosome analysis. No clonal abnormalities were detected at current resolution. Clinical correlation is recommended. 3:15 PM EDT [facility] Addendum electronically signed by Lisandra Epstein MD on 09/24/2024 at 1630 EDT Addendum Interpretation The following two (2) genes, TP53 and DNMT3A, with persistent variants have been detected in this bone marrow specimen. The variant, p.[id number], in TP53 gene and the variant, p.Nhv542gso, in the RUNX 1 gene are not detectable at current cutoff and coverage established in this lab. Gene: TP53 Mutation: c.814G>A; p.Zwx253Mgg Allele Frequency (%): 37% (45% Dec 2023) ID: [id number] Gene: DNMT3A Mutation: c.1522delC; p.Vmw716FdkqxXwz0 43 Allele Frequency (%): 36% (48% Dec 2023) Additional Details on Mutation Identified: 3:15 PM EDT [facility] Addendum electronically signed by Lisandra Epstein MD on 09/30/2024 at 1515 EDT Final Diagnosis PERIPHERAL BLOOD AND BONE MARROW, RIGHT POSTERIOR ILIAC CREST, (ASPIRATE SMEAR, AND CORE BIOPSY): - HYPOCELLULAR BONE MARROW WITH MARKEDLY DECREASED MEGAKARYOCYTES; NO SIGNIFICANT DYSPOIESIS OR INCREASE IN BLASTS. 3:15 PM EDT [facility] at 1453 EDT Clinical Information AML 09/14 3:15 PM EDT [facility] CBC and Differential PERIPHERAL BLOOD: [...] blasts are not seen. 3:15 PM EDT [facility] Bone Marrow Differential BONE MARROW DIFFERENTIAL: 200 cells Normal Patient Neutrophils 15-50 34 Metamyelocytes 4-19 3 Myelocytes 1-18 10 Promyelocytes 1-8 1 Blasts 0-2 1 Monocytes 0-5 4 Erythroid 16-38 22 Lymphocytes 3-24 13 Eosinophils 0-6 8 Basophils 0-2 0 Plasma cells 0-4 4 Other 3:15 PM EDT [facility] Bone Marrow Aspirate and Biopsy [...] Bone trabeculae are unremarkable. 3:15 PM EDT [facility] Special and Immunohistochemical Stains Special Stain: A1-1 Vazquez-Giemsa A1-2 Vazquez-Giemsa A1-3 Vazquez-Giemsa C1-1 Vazquez-Giemsa IHC: B1-2 CD34 All controls show appropriate reactivity. All immunohistochemis try, in situ hybridization, and histochemical tests were developed by and are performed at the [facility], [address] [place] [address]. All tests reported here, except those addressing [...] negativity on decalcified specimens. 3:15 PM EDT [facility] Flow Cytometry Interpretation MIXED MARROW ELEMENTS WITH NO EVIDENCE OF INCREASED BLASTS OR ABNORMAL LYMPHOID POPULATIONS ([id number]). 3:15 PM EDT [facility] CYTOGENETICS/MOLECULA R INTERPRETATION Correlation with cytogenetic/molec ular analysis is suggested. 3:15 PM EDT [facility] Gross Description B. RIGHT A single specimen is received in formalin labeled bone marrow biopsy right posterior iliac crest and consists of 2 piece(s) of red/white tissue measuring 2.1/0.3 cm in length 0.2 cm in diameter. The specimen is submitted in to Histology for decalcification and routine processing. Cold Time: <1m 3:15 PM T [facility] Note: A resident was involved in the service. I attest I examined the relevant preparations for the specimens and confirmed the diagnosis or interpretation. 3:15 PM EDT [facility] Bone Marrow Peripheral blood specimen [...] PATHOLOGY ORDERABLES Edit ed Result - Final [facility] [address] [place] [address] * Hepatitis C Antibody w/Reflex to HCV Quant PCR (01/07/2024 8:42 AM EDT) Hepatitis C Antibody Negative Negative 01/07/2024 10:13 AM EDT [facility] Blood Venous blood specimen / Unknown Venipuncture / Unknown 01/07/2024 8:42 AM EDT 01/07/2024 9:25 AM EDT New Mckinney MD LAB BLOOD ORDERABLES Final Re sult [facility] [address] [place] [address] from Last 3 Months or Most Recently Relevant to Health Maintenance Insurance MEDICARE [facility] Care Teams Lease Operator Relationship Specialty Start Date End Date Jevon Vazquez MD [address] [place] [address] #1 #1 Julien JOSEP [phone] PCP - General 03/23/22
--- OUTSIDE RECORDS SUMMARY | 2024-10-13 09:10 | XMS_ITS | Encounter Summary ---
Author Organization Healthcare Address [address] [place] [address] Care Team Providers Care Automatic Bow Maker Machine Tender Name Role Phone Jevon Vazquez MD Primary Care Provider [phone] Encounter Details Date Type Department Care Team ([facility] st Contact Info) Description 09/01/2024 Telephone [facility] Hematology/BMT and Cellular Therapy Program [address] [phone] Zonia Hoffamn, BANK CREDIT CARD COLLECTION CLERK 800 [facility] [address] [place] [phone] Social History Tobacco Use Types Packs/Day Years [...] told her to cancel. Please confirm Callback number:[phone] documented in this encounter Plan of Treatment Upcoming Encounters Date Type Department Care Team ([facility] st Contact Info) Description 10/14/2024 11:00 AM EDT Clinical Support [facility] Cellular Therapy Program [address] [address] 10/14/2024 11:30 AM EDT Office Visit [facility]BMT [facility] Cellular Therapy Program [address] [phone] Zonia Hoffman, BANK CREDIT CARD COLLECTION CLERK 800 [facility] [address] [place] [phone] 10/14/2024 4:30 PM EDT Appointment [facility] [address] [place] [address] 10/15/2024 2:00 PM EDT Appointment [facility] [address] [place] [address] 10/16/2024 2:00 PM EDT Appointment [facility] [address] [place] [address] 10/18/2024 1:00 PM EDT Appointment [facility] 2 [address] [place] [address] 10/19/2024 1:00 PM EDT Appointment [facility] 2 [address] [place] [address] 10/20/2024 3:30 PM EDT Appointment [facility] [address] [place] [address] 10/21/2024 4:30 PM EDT Appointment [facility] 2 [address] [place] [address] 10/29/2024 1:00 PM EDT Clinical Support [facility] Therapy [facility] [address] [place] [address] 10/29/2024 1:30 PM EDT Office Visit [facility]ology[facility]BMT and Cellular Therapy Program [address] [place] [phone] Zonia Hoffman, BANK CREDIT CARD COLLECTION CLERK 800 [facility] [address] [place] [phone] documented as of this encounter Visit Diagnoses Not on filedocumented in this encounter Additional Health Concerns Assessment Noted Time A fall risk assessment has been complete d for the patient 07/30/2024 8:29 AM EDT A Body Mass Index follow-up plan has been documented for the patient 05/28/2024 1:52 PM EST documented as of this encounter Care Teams Automatic Bow Maker Machine Tender Relationship Specialty Start Date End Date Jevon Vazquez MD [address] [place] [address] #1 #1 [place] [id number] PCP - General 03/23/22 documented as of this encounter
--- OUTSIDE RECORDS SUMMARY | 2024-10-13 09:10 | XMS_ITS | Encounter Summary ---
Author Organization Healthcare Address [address] [place] [address] Care Team Providers Care Panel Assembler Name Role Phone Jevon Vazquez MD Primary Care Provider [phone] Encounter Details Date Type Department Care Team [...] Hematology/BMT and Cellular Therapy Program [address] [phone] 10/14/2024 11:30 AM EDT Office Visit [facility] Cellular Therapy Program [address] [phone] Zonia Hoffman, RODDY 800 [facility] [address] [place] [phone] 10/14/2024 4:30 PM EDT Appointment [facility] [address] [place] [address] 10/15/2024 2:00 PM EDT Appointment [facility] [address] [place] [address] 10/16/2024 2:00 PM EDT Appointment [facility] [address] [place] [address] 10/18/2024 1:00 PM EDT Appointment [facility] 2 [address] [place] [address] 10/19/2024 1:00 PM EDT Appointment [facility] 2 [address] [place] [address] 10/20/2024 3:30 PM EDT Appointment [facility] [address] [place] [address] 10/21/2024 4:30 PM EDT Appointment [facility] 2 [address] [place] [address] 10/29/2024 1:00 PM EDT Clinical Support [facility]ology/BMT and Cellular Therapy Program [address] [address] 10/29/2024 1:30 PM EDT Office Visit [facility] Hematology/BMT and Cellular Therapy Program [address] [address] Zonia Hoffman, LEGAL OFFICER 800 [facility] [address] [place] [phone] documented as of this encounter Visit Diagnoses Not on filedocumented in this encounter Additional Health Concerns Assessment Noted Time A fall risk assessment has been complete d for the patient 09/19/2024 8:38 AM EDT A Body Mass Index follow-up plan has been documented for the patient 05/28/2024 1:52 PM EST documented as of this encounter Care Teams Panel Assembler Relationship Specialty Start Date End Date Jevon Vazquez MD [address] [place] [address] #1 #1 [place] [id number] PCP - General 03/23/22 documented as of this encounter
--- OUTSIDE RECORDS SUMMARY | 2024-10-13 09:10 | XMS_ITS | Encounter Summary ---
Author Organization Healthcare Address [address] [place] [address] Care Team Providers Care Fancy Wire Drawer Name Role Phone Jevon Vazquez MD Primary Care Provider [phone] Encounter Details Date Type Department Care Team [...] Hematology/BMT and Cellular Therapy Program [address] [address] 10/14/2024 11:30 AM EDT Office Visit [facility] Hematology/BMT and Cellular Therapy Program [address] [address] Zonia Hoffman, RODDY 800 [facility] [address] [place] [address] 10/14/2024 4:30 PM EDT Appointment [facility] 800 [place] [address] 10/15/2024 2:00 PM EDT Appointment [facility] [address] [place] [address] 10/16/2024 2:00 PM EDT Appointment [facility] [address] [place] [address] 10/18/2024 1:00 PM EDT Appointment [facility] 2 [address] [place] [address] 10/19/2024 1:00 PM EDT Appointment [facility] 2 [address] [place] [address] 10/20/2024 3:30 PM EDT Appointment [facility] [address] [place] [address] 10/21/2024 4:30 PM EDT Appointment [facility] 2 [address] [place] [address] 10/29/2024 1:00 PM EDT Clinical Support [facility] Hematology/BMT and Cellular Therapy Program [address] [address] 10/29/2024 1:30 PM EDT Office Visit [facility] Hematology/BMT and Cellular Therapy Program [address] [address] Zonia Hoffman, LOOM FIXER APPRENTICE 800 [facility] [address] [place] [address] documented as of this encounter Visit Diagnoses Not on filedocumented in this encounter Additional Health Concerns Assessment Noted Time A fall risk assessment has been complete d for the patient 07/30/2024 8:29 AM EDT A Body Mass Index follow-up plan has been documented for the patient 05/28/2024 1:52 PM EST documented as of this encounter Care Teams Fancy Wire Drawer Relationship Specialty Start Date End Date Jevon Vazquez MD [address] [place] [address] #1 [address] [place] [address] PCP - General 03/23/22 documented as of this encounter
--- OUTSIDE RECORDS SUMMARY | 2024-10-13 09:10 | XMS_ITS | Encounter Summary ---
Author Organization Healthcare Address [address] [place] [address] Care Team Providers Care Accounting Clerks Supervisor Name Role Phone Jevon Vazquez MD Primary Care Provider [phone] Encounter Details Date Type Department Care Team [...] Hematology/BMT and Cellular Therapy Program [address] [address] 10/14/2024 11:30 AM EDT Office Visit [facility] Hematology/BMT and Cellular Therapy Program [address] [address] Zonia Hoffman, RODDY 800 [facility] [address] [place] [address] 10/14/2024 4:30 PM EDT Appointment [facility] 800 [place] [address] 10/15/2024 2:00 PM EDT Appointment [facility] 800 [place] [address] 10/16/2024 2:00 PM EDT Appointment [facility] 800 [place] [address] 10/18/2024 1:00 PM EDT Appointment [facility] 2 [address] [place] [address] 10/19/2024 1:00 PM EDT Appointment [facility] 2 [address] [place] [address] 10/20/2024 3:30 PM EDT Appointment [facility] 800 [place] [address] 10/21/2024 4:30 PM EDT Appointment [facility] 2 [address] [place] [address] 10/29/2024 1:00 PM EDT Clinical Support [facility] Hematology/BMT and Cellular Therapy Program [address] [address] 10/29/2024 1:30 PM EDT Office Visit [facility] Hematology/BMT and Cellular Therapy Program [address] [address] Zonia Hoffman, ENDODONTIC ASSISTANT 800 [facility] [address] [place] [address] documented as of this encounter Visit Diagnoses Not on filedocumented in this encounter Additional Health Concerns Assessment Noted Time A fall risk assessment has been complete d for the patient 09/30/2024 9:33 AM EDT A Body Mass Index follow-up plan has been documented for the patient 05/28/2024 1:52 PM EST documented as of this encounter Care Teams Accounting Clerks Supervisor Relationship Specialty Start Date End Date Jevon Vazquez MD [address] [place] [address] #1 [address] [place] [address] PCP - General 03/23/22 documented as of this encounter
--- OUTSIDE RECORDS SUMMARY | 2024-10-13 09:10 | XMS_ITS | Encounter Summary ---
Author Organization Healthcare Address [address] [place] [address] Care Team Providers Care Development Vice President Name Role Phone Jevon Vazquez MD Primary Care Provider [phone] Encounter Details Date Type Department Care Team [...] Hematology/BMT and Cellular Therapy Program [address] [address] 10/14/2024 11:30 AM EDT Office Visit [facility] Hematology/BMT and Cellular Therapy Program [address] [address] Zonia Hoffman, RODDY 800 [facility] [address] [place] [address] 10/14/2024 4:30 PM EDT Appointment [facility] 800 [place] [address] 10/15/2024 2:00 PM EDT Appointment [facility] 800 [place] [address] 10/16/2024 2:00 PM EDT Appointment [facility] 800 [place] [address] 10/18/2024 1:00 PM EDT Appointment [facility] 2 [address] [place] [address] 10/19/2024 1:00 PM EDT Appointment [facility] 2 [address] [place] [address] 10/20/2024 3:30 PM EDT Appointment [facility] 800 [place] [address] 10/21/2024 4:30 PM EDT Appointment [facility] 2 [address] [place] [address] 10/29/2024 1:00 PM EDT Clinical Support [facility] Hematology/BMT and Cellular Therapy Program [address] [address] 10/29/2024 1:30 PM EDT Office Visit [facility] Hematology/BMT and Cellular Therapy Program [address] [address] Zonia Hoffman, EQUIPMENT SERVICE ASSOCIATE 800 [facility] [address] [place] [address] documented as of this encounter Visit Diagnoses Not on filedocumented in this encounter Additional Health Concerns Assessment Noted Time A fall risk assessment has been complete d for the patient 09/30/2024 9:33 AM EDT A Body Mass Index follow-up plan has been documented for the patient 05/28/2024 1:52 PM EST documented as of this encounter Care Teams Development Vice President Relationship Specialty Start Date End Date Jevon Vazquez MD [address] [place] [address] #1 [address] [place] [address] PCP - General 03/23/22 documented as of this encounter
--- OUTSIDE RECORDS SUMMARY | 2024-10-13 09:10 | XMS_ITS | Encounter Summary ---
Author Organization Healthcare Address [address] [place] [address] Care Team Providers Care Optical Store Manager Name Role Phone Jevon Vazquez MD Primary Care Provider [phone] Encounter Details Date Type Department Care Team ([facility] st Contact Info) Description 08/18/2024 Telephone [facility] Hematology/BMT and Cellular Therapy Program [address] [address] Romana Gorman, ENVIRONMENT ARTIST 800 [facility] [address] [place] [address] Social History Tobacco Use Types Packs/Day Years [...] to her levels being low Callback number: [phone] documented in this encounter Plan of Treatment Upcoming Encounters Date Type Department Care Team (Late st Contact Info) Description 10/14/2024 11:00 AM EDT Clinical Support [facility] Hematology/BMT and Cellular Therapy Program [address] [address] 10/14/2024 11:30 AM EDT Office Visit [facility] Hematology/BMT and Cellular Therapy Program [address] [address] Zonia Hoffman, ENVIRONMENT ARTIST 800 [facility] [address] [place] [address] 10/14/2024 4:30 PM EDT Appointment [facility] 800 [place] [address] 10/15/2024 2:00 PM EDT Appointment [facility] 800 [place] [address] 10/16/2024 2:00 PM EDT Appointment [facility] 800 [place] [address] 10/18/2024 1:00 PM EDT Appointment [facility] 2 [address] [place] [address] 10/19/2024 1:00 PM EDT Appointment [facility] 2 [address] [place] [address] 10/20/2024 3:30 PM EDT Appointment [facility] 800 [place] [address] 10/21/2024 4:30 PM EDT Appointment [facility] 2 [address] [place] [address] 10/29/2024 1:00 PM EDT Clinical Support PAV Hematology/BMT and Cellular Therapy Program [address] [address] 10/29/2024 1:30 PM EDT Office Visit [facility] Hematology/BMT and Cellular Therapy Program 750 [facility] [place] [address] Zonia Hoffman, ENVIRONMENT ARTIST 800 [facility] [address] [place] [address] documented as of this encounter Visit Diagnoses [...] Date End Date Jevon Vazquez MD [address] [place] [address] #1 #1 [place] [address] PCP - General 03/23/22 documented as of this encounter
--- OUTSIDE RECORDS SUMMARY | 2024-10-13 09:10 | XMS_ITS | Encounter Summary ---
Author Organization Healthcare Address [address] [place] [address] Care Team Providers Care Manager Of Procurement Name Role Phone Jevon Vazquez MD Primary Care Provider [phone] Encounter Details Date Type Department Care Team [...] Hematology/BMT and Cellular Therapy Program [address] [address] 10/14/2024 11:30 AM EDT Office Visit [facility] Hematology/BMT and Cellular Therapy Program [address] [address] Zonia Hoffman, RODDY 800 [facility] [address] [place] [address] 10/14/2024 4:30 PM EDT Appointment [facility] 800 [place] [address] 10/15/2024 2:00 PM EDT Appointment [facility] 800 [place] [address] 10/16/2024 2:00 PM EDT Appointment [facility] 800 [place] [address] 10/18/2024 1:00 PM EDT Appointment [facility] 2 [address] [place] [address] 10/19/2024 1:00 PM EDT Appointment [facility] 2 [address]44 [place] [address] 10/20/2024 3:30 PM EDT Appointment [facility] 800 [place] [address] 10/21/2024 4:30 PM EDT Appointment [facility] 2 [address] [place] [address] 10/29/2024 1:00 PM EDT Clinical Support [facility] Hematology/BMT and Cellular Therapy Program [address] [address] 10/29/2024 1:30 PM EDT Office Visit [facility] Hematology/BMT and Cellular Therapy Program [address] [address] Zonia Hoffman, LABORATORY MILLER 800 [facility] [address] [place] [address] documented as of this encounter Visit Diagnoses Not on filedocumented in this encounter Additional Health Concerns Assessment Noted Time A fall risk assessment has been complete d for the patient 09/19/2024 8:38 AM EDT A Body Mass Index follow-up plan has been documented for the patient 05/28/2024 1:52 PM EST documented as of this encounter Care Teams Manager Of Procurement Relationship Specialty Start Date End Date Jevon Vazquez MD [address] [place] [address] #1 #1 [place] [address] PCP - General 03/23/22 documented as of this encounter
--- OUTSIDE RECORDS SUMMARY | 2024-10-13 09:10 | XMS_ITS | Encounter Summary ---
Author Organization Healthcare Address [address] [place] [address] Care Team Providers Care Middle School Science Teacher Name Role Phone Jevon Vazquez MD [...] Hematology/BMT and Cellular Therapy Program [address] [address] 10/14/2024 11:30 AM EDT Office Visit [facility] Hematology/BMT and Cellular Therapy Program [address] [address] Zonia Hoffman, RODDY 800 [facility] [address] [place] [address] 10/14/2024 4:30 PM EDT Appointment [facility] 800 [place] [address] 10/15/2024 2:00 PM EDT Appointment [facility] 800 [place] [address] 10/16/2024 2:00 PM EDT Appointment [facility] 800 [place] [address] 10/18/2024 1:00 PM EDT Appointment [facility] 2 [address] [place] [address] 10/19/2024 1:00 PM EDT Appointment [facility] 2 [address] [place] [address] 10/20/2024 3:30 PM EDT Appointment [facility] 800 [place] [address] 10/21/2024 4:30 PM EDT Appointment [facility] 2 [address] [place] [address] 10/29/2024 1:00 PM EDT Clinical Support [facility] Hematology/BMT and Cellular Therapy Program [address] [address] 10/29/2024 1:30 PM EDT Office Visit [facility] Hematology/BMT and Cellular Therapy Program [address] [address] Zonia Hoffman, GAS LEAK INSPECTOR HELPER 800 [facility] [address] [place] [address] documented as of this encounter Visit Diagnoses Not on filedocumented in this encounter Additional Health Concerns Assessment Noted Time A fall risk assessment has been complete d for the patient 09/19/2024 8:38 AM EDT A Body Mass Index follow-up plan has been documented for the patient 05/28/2024 1:52 PM EST documented as of this encounter Care Teams Middle School Science Teacher Relationship Specialty Start Date End Date Jevon Vazquez MD [address] [place] [address] #1 #1 [place] [address] PCP - General 03/23/22 documented as of this encounter
--- OUTSIDE RECORDS SUMMARY | 2024-10-13 09:10 | XMS_ITS | Clinical Summary ---
Author Organization [facility] Address [address] [place] [address] Care Team Providers Care Bonding Equipment Operator Name Role Phone David Vazquez Primary Care Provider [phone] Allergies No known active allergies Medications atorvastatin [...] series) 2025 Medical Devices Implanted Type Area Lump Maker Device Identifier Shelf Expiration Date Model / Serial / Lot Mis Ply Scr 6.5x50mm - [id number] Implanted:Qty : 1 on 01/30/2023 by Ivan Bartholomew MD at [facility] Screw N/A: Spine Lumbar [employer] [id number] / / Mis Ply Scr 6.5x45mm - [id number] Implanted:Qty : 3 on 01/30/2023 by Ivan Bartholomew MD at [facility] Screw N/A: Spine Lumbar [employer] [id number] / / Reline Mas Reduction Screw 7.5x45 - [id number] Implanted:Qty : 2 on 01/30/2023 by Ivan Bartholomew MD at [facility] Screw N/A: Spine Lumbar [employer] [id number] / / Grft Dbm Vesuvius Putty 5cc - [id number] Implanted:Qty : 1 on 01/30/2023 by Ivan Bartholomew MD at [facility] [employer] [id number] 04/20/2025 [id number] P / [id number] / Putty I-Factor 5.0cc - [id number] Implanted:Qty : 1 on 01/30/2023 by Ivan Bartholomew MD at [facility] N/A: Spine Lumbar [employer] 03/15/2025 [id number] / / [id number] Modulus Xlw [id number] 10 Degree - [id number] Implanted:Qty : 1 on 01/30/2023 by Ivan Bartholomew MD at [facility] N/A: Spine Lumbar [employer] [id number] / / [id number] Modulus Xlw [id number] - [id number] Implanted:Qty : 1 on 01/30/2023 by Ivan Bartholomew MD at [facility] N/A: Spine Lumbar [employer] 09/28/2027 [id number] / / [id number] Reln Lock Scr 5.5mm Opn Tulip - [id number] Implanted:Qty : 6 on 01/30/2023 by Ivan Bartholomew MD at [facility] N/A: Spine Lumbar [employer] [id number] / / Reln Mas Ti Petar 5.5x70mm - [id number] Implanted:Qty : 2 on 01/30/2023 by Ivan Bartholomew MD at [facility] N/A: Spine Lumbar [employer] [id number] / / Procedures Procedure Name Priority Date/Time [...] Hgb A1C 6.0(H) 4.0 - 5.6 % [facility] Comment: Reference Ranges for [...] Glycohemoglobin Standardization program (NGSP) and traceable to [facility]. Estimated Average Glucose 126(H) 68 - 114 mg/dL [facility] Whole Blood (Blood) 01/24/2023 2:32 PM EDT 01/24/2023 6:00 PM EDT us Ivan Bartholomew MD CHEMISTRY ORDERABLES Fin al Result [facility] [address] * (ABNORMAL) BASIC METABOLIC PANEL (BMP=EP1) (01/24/2023 2:32 PM EDT) Sodium 141 135 - 146 mmol/L [facility] Potassium 4.8 3.5 - 5.1 mmol/L [facility] Chloride 107 98 - 110 mmol/L [facility] CO2 24 22 - 29 mmol/L [facility] Anion Gap 10 5 - 13 mmol/L [facility] Comment:Anion gap calculatio n does not include potassium (K+) value. BUN 17 7 - 25 mg/dL [facility] Creatinine 1.20 0.50 - 1.20 mg/dL [facility] Glucose 125(H) 71 - 99 mg/dL [facility] Comment:Reference range (71- 99 mg/dL) refers only to fasting samples, and does not apply to non-fasting samples. eGFR CKD-EPI 2020 48 See Note [facility] Comment: eGFR calculated with 2020 CKD-EPI equation using creatinine, patient's age and gender. Other factors, especially muscle mass, may affect accuracy and need to be considered. Patient values should be interpreted as a trend. The reference interval is >60 mL/min/1.73m2. Calcium 10.3 8.5 - 10.5 mg/dL [facility] BUN/Creatinine Ratio 14 [facility] Serum 01/24/2023 2:32 PM EDT 01/24/2023 5:54 PM EDT us Lexi SUAREZ CHEMISTRY ORDERABLES Final Resu lt [facility] [address] from Last 3 Months or Most Recently Relevant to Health Maintenance Insurance MEDICARE PART A [facility] [address] [address] [place] [address] ANTH Advance Directives For more information, please contact: [phone] * Full Code (Latest Code Status on File) Date Activated Date Inactivated Comments 01/30/2023 9:13 AM No automated chest compression devices for [facility] Patients Care Teams Bonding Equipment Operator Relationship Specialty Start Date End Date David Vazquez [address] [place] [id number] PCP - General 01/24/23
--- OUTSIDE RECORDS SUMMARY | 2024-10-13 09:10 | XMS_ITS | Encounter Summary ---
Author Organization Healthcare Address [address] [place] [address] Care Team Providers Care Entry Level Software Engineer Name Role Phone Jevon Vazquez MD Primary Care Provider [phone] Encounter Details Date Type Department Care Team [...] Hematology/BMT and Cellular Therapy Program [address] [address] 10/14/2024 11:30 AM EDT Office Visit [facility] Hematology/BMT and Cellular Therapy Program [address] [address] Zonia Hoffman, RODDY [facility] [address] [place] [address] 10/14/2024 4:30 PM EDT Appointment [facility] 800 [place] [address] 10/15/2024 2:00 PM EDT Appointment [facility] [address] [place] [address] 10/16/2024 2:00 PM EDT Appointment [facility] [address] [place] [address] 10/18/2024 1:00 PM EDT Appointment [facility] 2 [address] [place] [address] 10/19/2024 1:00 PM EDT Appointment [facility] 2 [address] [place] [address] 10/20/2024 3:30 PM EDT Appointment [facility] [address] [place] [address] 10/21/2024 4:30 PM EDT Appointment [facility] 2 [address] [place] [address] 10/29/2024 1:00 PM EDT Clinical Support [facility] Hematology/BMT and Cellular Therapy Program [address] [address] 10/29/2024 1:30 PM EDT Office Visit [facility] Hematology/BMT and Cellular Therapy Program [address] [address] Zonia Hoffman, SALES MANAGEMENT INTERN [facility] [address] [place] [address] documented as of this encounter Visit Diagnoses Not on filedocumented in this encounter Additional Health Concerns Assessment Noted Time A fall risk assessment has been complete d for the patient 09/19/2024 8:38 AM EDT A Body Mass Index follow-up plan has been documented for the patient 05/28/2024 1:52 PM EST documented as of this encounter Care Teams Entry Level Software Engineer Relationship Specialty Start Date End Date Jevon Vazquez MD [address] [place] [address] #1 #1 [place] [address] PCP - General 03/23/22 documented as of this encounter
--- OUTSIDE RECORDS SUMMARY | 2024-10-13 09:10 | XMS_ITS | Encounter Summary ---
Author Organization Healthcare Address [address] [place] [address] Care Team Providers Care Detonator Maker Name Role Phone Jevon Vazquez MD Primary Care Provider [phone] Encounter Details Date Type Department Care Team [...] Hematology/BMT and Cellular Therapy Program [address] [address] 10/14/2024 11:30 AM EDT Office Visit [facility] Hematology/BMT and Cellular Therapy Program [address] [address] Zonia Hoffman, RODDY 800 [facility] [address] [place] [address] 10/14/2024 4:30 PM EDT Appointment [facility]fusion 800 [place] [address] 10/15/2024 2:00 PM EDT Appointment [facility] 800 [place] [address] 10/16/2024 2:00 PM EDT Appointment [facility] 800 [place] [address] 10/18/2024 1:00 PM EDT Appointment [facility] 2 [address] [place] [address] 10/19/2024 1:00 PM EDT Appointment [facility] 2 [address] [place] [address] 10/20/2024 3:30 PM EDT Appointment [facility] 800 [place] [address] 10/21/2024 4:30 PM EDT Appointment [facility] 2 [address] [place] [address] 10/29/2024 1:00 PM EDT Clinical Support [facility] Hematology/BMT and Cellular Therapy Program [address] [address] 10/29/2024 1:30 PM EDT Office Visit [facility] Hematology/BMT and Cellular Therapy Program [address] [address] Zonia Hoffman, MILK BOTTLING MACHINE OPERATOR 800 [facility] [address] [place] [address] documented as of this encounter Visit Diagnoses Not on filedocumented in this encounter Additional Health Concerns Assessment Noted Time A fall risk assessment has been complete d for the patient 09/30/2024 9:33 AM EDT A Body Mass Index follow-up plan has been documented for the patient 05/28/2024 1:52 PM EST documented as of this encounter Care Teams Detonator Maker Relationship Specialty Start Date End Date Jevon Vazquez MD [address] [place] [address] #1 #[address] [place] [address] PCP - General 03/23/22 documented as of this encounter
--- OUTSIDE RECORDS SUMMARY | 2024-10-13 09:10 | XMS_ITS | Encounter Summary ---
Author Organization Healthcare Address [address] [place] [address] Care Team Providers Care Erosion Control Coordinator Name Role Phone Jevon Vazquez MD Primary Care Provider [phone] Encounter Details Date Type Department Care Team [...] Hematology/BMT and Cellular Therapy Program [address] [address] 10/14/2024 11:30 AM EDT Office Visit [facility] Hematology/BMT and Cellular Therapy Program [address] [address] Zonia Hoffman, RODDY 800 [facility] [address] [place] [address] 10/14/2024 4:30 PM EDT Appointment [facility] 800 [place] [address] 10/15/2024 2:00 PM EDT Appointment [facility] 800 [place] [address] 10/16/2024 2:00 PM EDT Appointment [facility] 800 [place] [address] 10/18/2024 1:00 PM EDT Appointment [facility] 2 [address] [place] [address] 10/19/2024 1:00 PM EDT Appointment [facility] 2 [address] [place] [address] 10/20/2024 3:30 PM EDT Appointment [facility] 800 [place] [address] 10/21/2024 4:30 PM EDT Appointment [facility] 2 [address] [place] [address] 10/29/2024 1:00 PM EDT Clinical Support [facility] Hematology/BMT and Cellular Therapy Program [address] [address] 10/29/2024 1:30 PM EDT Office Visit [facility] Hematology/BMT and Cellular Therapy Program [address] [address] Zonia Hoffman, CREW TEAM MEMBER 800 [facility] [address] [place] [address] documented as of this encounter Visit Diagnoses Not on filedocumented in this encounter Additional Health Concerns Assessment Noted Time A fall risk assessment has been complete d for the patient 09/19/2024 8:38 AM EDT A Body Mass Index follow-up plan has been documented for the patient 05/28/2024 1:52 PM EST documented as of this encounter Care Teams Erosion Control Coordinator Relationship Specialty Start Date End Date Jevon Vazquez MD [address] [place] [address] #1 #1 [place] [address] PCP - General 03/23/22 documented as of this encounter
--- OUTSIDE RECORDS SUMMARY | 2024-10-13 09:10 | XMS_ITS | Encounter Summary ---
Author Organization Healthcare Address [address] [place] [address] Care Team Providers Care Boning Room Worker Name Role Phone Jevon Vazquez MD Primary Care Provider [phone] Encounter Details Date Type Department Care Team [...] Hematology/BMT and Cellular Therapy Program [address] [address] 10/14/2024 11:30 AM EDT Office Visit [facility] Hematology/BMT and Cellular Therapy Program [address] [address] Zonia Hoffman, RODDY 800 [facility] [address] [place] [address] 10/14/2024 4:30 PM EDT Appointment [facility] [address] [place] [address] 10/15/2024 2:00 PM EDT Appointment [facility] [address] [place] [address] 10/16/2024 2:00 PM EDT Appointment [facility] [address] [place] [address] 10/18/2024 1:00 PM EDT Appointment [facility] 2 [address] [place] [address] 10/19/2024 1:00 PM EDT Appointment [facility] 2 [address] [place] [address] 10/20/2024 3:30 PM EDT Appointment [facility] [address] [place] [address] 10/21/2024 4:30 PM EDT Appointment [facility] 2 [address] [place] [address] 10/29/2024 1:00 PM EDT Clinical Support [facility] Hematology/BMT and Cellular Therapy Program [address] [address] 10/29/2024 1:30 PM EDT Office Visit [facility] Hematology/BMT and Cellular Therapy Program [address] [address] Zonia Hoffman, GLOBAL PROCESS OWNER 800 [facility] [address] [place] [address] documented as of this encounter Visit Diagnoses Not on filedocumented in this encounter Additional Health Concerns Assessment Noted Time A fall risk assessment has been complete d for the patient 07/30/2024 8:29 AM EDT A Body Mass Index follow-up plan has been documented for the patient 05/28/2024 1:52 PM EST documented as of this encounter Care Teams Boning Room Worker Relationship Specialty Start Date End Date Jevon Vazquez MD [address] [place] [address] #1 [address]1 [place] [address] PCP - General 03/23/22 documented as of this encounter
--- OUTSIDE RECORDS SUMMARY | 2024-10-13 09:10 | XMS_ITS | Encounter Summary ---
Author Organization Healthcare Address [address] [place] [address] Care Team Providers Care Cloth Examiner Machine Name Role Phone Jevon Vazquez MD Primary Care Provider [phone] Encounter Details Date Type Department Care Team [...] Hematology/BMT and Cellular Therapy Program [address] [address] 10/14/2024 11:30 AM EDT Office Visit [facility] Hematology/BMT and Cellular Therapy Program [address] [address] Zonia Hoffman, RODDY 800 [facility] [address] [place] [address] 10/14/2024 4:30 PM EDT Appointment [facility] [address] [place] [address] 10/15/2024 2:00 PM EDT Appointment [facility] [address] [place] [address] 10/16/2024 2:00 PM EDT Appointment [facility] [address] [place] [address] 10/18/2024 1:00 PM EDT Appointment [facility] 2 [address] [place] [address] 10/19/2024 1:00 PM EDT Appointment [facility] 2 [address] [place] [address] 10/20/2024 3:30 PM EDT Appointment [facility] [address] [place] [address] 10/21/2024 4:30 PM EDT Appointment [facility] 2 [address] [place] [address] 10/29/2024 1:00 PM EDT Clinical Support [facility] Hematology/BMT and Cellular Therapy Program [address] [address] 10/29/2024 1:30 PM EDT Office Visit [facility] Hematology/BMT and Cellular Therapy Program [address] [address] Zonia Hoffman, TONSORIAL ARTIST 800 [facility] [address] [place] [address] documented as of this encounter Visit Diagnoses Not on filedocumented in this encounter Additional Health Concerns Assessment Noted Time A fall risk assessment has been complete d for the patient 07/30/2024 8:29 AM EDT A Body Mass Index follow-up plan has been documented for the patient 05/28/2024 1:52 PM EST documented as of this encounter Care Teams Cloth Examiner Machine Relationship Specialty Start Date End Date Jevon Vazquez MD [address] [place] [address] #1 [address] [place] [address] PCP - General 03/23/22 documented as of this encounter
--- OUTSIDE RECORDS SUMMARY | 2024-10-13 09:10 | XMS_ITS | Clinical Summary ---
Author Organization [facility] Address [address] [place] [address] Phone Care Team Providers Care Sugarcane Planter Name Role Phone Jevon Vazquez MD Primary Care Provider [phone] Allergies Active Allergy Reactions Criticality Noted Date [...] L4-5 LAMINECTOMY; Surgeon: Ivan Bartholomew MD; Location: [facility] MAIN OR; Service: Spine Medical [...] 5.6 % 11/14/2022 2:57 PM EDT PREFERRED [employer] Est. Avg Glucose 148 mg/dL 11/14/2022 2:57 PM EDT [employer], [facility] Blood VENOUS BLOOD / Unknown Venipuncture / Unknown 11/11/2022 3:46 PM EDT 11/11/2022 3:55 PM EDT Narrative [facility] [employer] [facility] - 11/14/2022 2:57 PM EDT REFERENCE RANGE: Normal: 4.0-5.6% Pre-diabetes: 5.7-6.4% Provisional diagnosis of diabetes: >6.4% Hgb F>10% and anything which shortens red cell survival, such as hemolytic anemia, or unstable hemoglobin variants such as HbSS, HbSC, or HbCC, will lower the HbA1c value associated with a given level of glycemic control. us Lexi Maloney DO CHEMISTRY ORDERABLES Final R esult [facility] [employer] [facility] [address] [facility] , [place] [address] * (ABNORMAL) BASIC METABOLIC PANEL (11/11/2022 3:46 PM EDT) Sodium 136 136 - 145 mmol/L 11/11/2022 4:11 PM EDT [facility] Potassium 3.8 3.5 - 5.0 mmol/L 11/11/2022 4:11 PM EDT [facility] Chloride 102 98 - 107 mmol/L 11/11/2022 4:11 PM EDT [facility] Total CO2 24 22 - 29 mmol/L 11/11/2022 4:11 PM EDT [facility] Anion Gap 10 7 - 16 mmol/L 11/11/2022 4:11 PM EDT [facility] Calcium 10.1 8.8 - 10.4 mg/dL 11/11/2022 4:11 PM EDT [facility] Glucose Lvl 147(H) 82 - 100 mg/dL 11/11/2022 4:11 PM EDT [facility] BUN 15 8 - 23 mg/dL 11/11/2022 4:11 PM EDT [facility] Creatinine 0.82 0.51 - 1.30 mg/dL 11/11/2022 4:11 PM EDT [facility] eGFR (CKD-EPIcr 2020) 76 >=60 mL/min/1.7 3 m2 11/11/2022 4:11 PM EDT [facility] Comment:Estimated GFR was ca lculated using the CKD-EPIcr (2020) equation refit without race. The equation is recommended by the National Kidney Foundation - [place] [employer] of Nephrology Task Force. Blood VENOUS BLOOD / Unknown Venipuncture / Unknown 11/11/2022 3:46 PM EDT 11/11/2022 3:54 PM EDT us Leona Hanna DO CHEMISTRY ORDERABLES Final Res ult [facility] [address] [place] [address] * DX BONE DENSITY AXIAL SKELETON (07/25/2022 9:14 AM EDT) Anatomical Region Laterality Modality Dexa Scan 07/25/2022 Narrative 07/25/2022 3:45 PM EDT Indication: The patient is a female age 65 or older who requires a bone density assessment. Study was performed on Kingtop 5. Bone Density: Region BMD T-score Z-score [...] Most Recently Relevant to Health Maintenance Insurance [place] [address] MEDICARE SUPPLEMENT MEDICARE [place] PART A AND B Member Subscriber Plan / Payer (Ef fective 2016-Present) Name:Ashly Hernández Member ID:[id number] Relation to Subscriber:Self Name:Ashly Hernández Subscriber ID:[id number] Payer ID:Not on file Group ID:Not on file Type:Not on file Address: [address] MEDICARE SUPPLEMENT MEDICARE [place] PART A & [place] [address] [place] [id number] MEDICARE [place] PART A AND B Member Subscriber Plan / Payer (Ef fective 2016-Present) Name:Ashly Hernández Member ID:[id number] Relation to Subscriber:Self Name:Ashly Hernández Subscriber ID:[id number] Payer ID:Not on file Group ID:Not on file Type:Not on file Address: [address] MEDICARE SUPPLEMENT [employer] MEDICARE [place] PART A AND B [address] MEDICARE SUPPLEMENT Advance Directives For more information, please contact: [phone] * Full Code (Latest Code Status on File) Date Activated Date Inactivated Comments 11/14/2022 6:53 PM 11/16/2022 7:37 PM * Full Code Date Activated Date Inactivated Comments 11/12/2022 5:17 AM 11/14/2022 6:47 PM Care Teams Sugarcane Planter Relationship Specialty Start Date End Date Jevon Vazquez MD [address] [place] [address] PCP - General Family Medicine 11/10/22
--- OUTSIDE RECORDS SUMMARY | 2024-10-13 09:10 | XMS_ITS | Encounter Summary ---
Author Organization Healthcare Address [address] [place] [address] Care Team Providers Care Judge'S Clerk Name Role Phone Jevon Vazquez MD Primary Care Provider [phone] Encounter Details Date Type Department Care Team [...] Hematology/BMT and Cellular Therapy Program [address] [address] 10/14/2024 11:30 AM EDT Office Visit [facility] Hematology/BMT and Cellular Therapy Program [address] [address] Zonia Hoffman, RODDY 800 [facility] [address] [place] [address] 10/14/2024 4:30 PM EDT Appointment [facility] 800 [place] [address] 10/15/2024 2:00 PM EDT Appointment [facility] [address] [place] [address] 10/16/2024 2:00 PM EDT Appointment [facility] [address] [place] [address] 10/18/2024 1:00 PM EDT Appointment [facility] 2 [address] [place] [address] 10/19/2024 1:00 PM EDT Appointment [facility] 2 [address] [place] [address] 10/20/2024 3:30 PM EDT Appointment [facility] 800 [place] [address] 10/21/2024 4:30 PM EDT Appointment [facility] 2 [address] [place] [address] 10/29/2024 1:00 PM EDT Clinical Support [facility] Hematology/BMT and Cellular Therapy Program [address] [address] 10/29/2024 1:30 PM EDT Office Visit [facility] Hematology/BMT and Cellular Therapy Program [address] [address] Zonia Hoffman, PHARMACOLOGY ASSOCIATE 800 [facility] [address] [place] [address] documented as of this encounter Visit Diagnoses Not on filedocumented in this encounter Additional Health Concerns Assessment Noted Time A fall risk assessment has been complete d for the patient 09/19/2024 8:38 AM EDT A Body Mass Index follow-up plan has been documented for the patient 05/28/2024 1:52 PM EST documented as of this encounter Care Teams Judge'S Clerk Relationship Specialty Start Date End Date Jevon Vazquez MD [address] [place] [address] #1 #1 [place] [address] PCP - General 03/23/22 documented as of this encounter
[2024-10-13 09:11] VITALS: BMI 21.8
[2024-10-13 09:22] LABS: Basophils % 0.4 % (0.1-2.0); Eosinophils # 0.1 Kmm3 (0.0-0.4); Eosinophils % 2.1 % (0.1-12.0); Hemoglobin 8.7 g/dL (12.2-16.2); Immature Granulocytes # 0 10^3uL; Immature Granulocytes % 0 %; Mean Corpuscular HGB Conc 34.8 g/dL (31.8-35.4); Mean Corpuscular Hemoglobin 38.5 pg (27.0-31.2); Mean Corpuscular Volume 110.6 fl (81-99); Monocytes # 0.2 K/mm3 (0.1-1.0); Monocytes % 7.2 % (1.7-9.3); Neutrophils # 1.1 K/mm3 (1.8-7.8); Neutrophils % 47.3 % (37.0-80.0); Nucleated Red Blood Cells # 0 10^3/uL; Nucleated Red Blood Cells % 0 %; Red Blood Count 2.26 M/mm3 (4.20-5.40); Red Cell Distribution Width 18.6 % (11.5-17.5); Red Cell Distribution Width-SD 72.8 fL; White Blood Count 2.4 K/mm3 (4.8-10.8)
[2024-10-13 09:26] LABS: Chloride 104 mmol/L (98-107)
[2024-10-13 09:27] LABS: Albumin Level 3.9 g/dl (3.5-5.0); Platelet Count 14 K/mm3 (142-424); Potassium 3.7 mmoL/L (3.5-5.1); Sodium 139 mmol/L (136-145)
[2024-10-13 09:30] LABS: Alanine Aminotransferase 15 U/L (12-78); Albumin/Globulin Ratio 1.7 (1.1-1.8); Alkaline Phosphatase 41 U/L (38-126); Anion Gap 14.7 mEq/L (5-15); Aspartate Amino Transferase 35 U/L (14-36); Bilirubin,Total 0.3 mg/dl (0.2-1.3); Blood Urea Nitrogen 27 mg/dl (7-17); Calcium 9.5 mg/dl (8.4-10.2); Carbon Dioxide 24 mmol/L (22.0-30.0); Creatinine Clearance Estimated 46 mL/min (50-200); Estimated Glomerular Filt Rate 61 ml/min (>60); GFR (African American) 74 ML/MIN (>60); Globulin 2.3 g/dL (1.3-3.2); Glucose 149 mg/dl (74-100); Total Protein,Serum 6.2 g/dl (6.3-8.2)
[2024-10-13] MEDS: SODIUM CHLORIDE 0.9% 10ML FLUSH SYRINGE 10 ML IV (09:30)
== END 2024-10-13 09:35 | disposition home or self-care (01) ==
LOC: INF 09:03
PROVIDERS: PCP Family Medicine; Visit Provider Internal Medicine Medical Oncology
DX: D61.818 Other pancytopenia (principal); C92.00 Acute myeloblastic leukemia, not having achieved remission
CPT/HCPCS: 36591; 80053; 85025; J1642

== ENCOUNTER 2024-10-15 08:49 | Outpatient (CLI) | payer MEDICARE, BC, SELFPAY ==
--- OUTSIDE RECORDS SUMMARY | 2024-09-19 07:30 | XMS_ITS | Encounter Summary ---
Author Organization [facility] Address [address] [place] [address] Care Team Providers Care Reeling Machine Operator Name Role Phone Jevon Vazquez MD Primary Care Provider [phone] Reason for Visit * Reason Comments Nurse Visit Encounter Details Date Type Department Care Team ([facility] Contact Info) Description 09/19/2024 7:30 AM EDT Clinical Support [facility] Hematology/BMT and Cellular Therapy Program [address] [phone] Social History Tobacco Use Types Packs/Day Years [...] Upcoming Encounters Date Type Department Care Team ([facility] Contact Info) Description 10/29/2024 1:00 PM EDT Clinical Support [facility]ematology/BMT and Cellular Therapy Program [address] [phone] 10/29/2024 1:30 PM EDT Office Visit [facility] Hematology/BMT and Cellular Therapy Program [address] [phone] Zonia Hoffman, ADDICTION TREATMENT COUNSELOR 800 [facility] [address] [place] [address] 10/29/2024 3:00 PM EDT Appointment [facility] 2 [address] [place] [address] 10/30/2024 3:00 PM EDT Appointment [facility] 2 [address] [place] [address] 10/31/2024 3:00 PM EDT Appointment [facility] 2 [address] [place] [address] 11/01/2024 3:00 PM EDT Appointment [facility] 2 [address] [place] [address] 11/02/2024 3:00 PM EDT Appointment [facility] 2 [address] [place] [address] 2024 3:00 PM EDT Appointment [facility] 2 [address] [place] [address] 11/04/2024 3:00 PM EDT Appointment [facility] 2 [address] [place] [address] documented as of this encounter Visit Diagnoses Not on filedocumented in this encounter Additional Health Concerns Assessment Noted Time A fall risk assessment has been complete d for the patient 09/19/2024 8:38 AM EDT A Body Mass Index follow-up plan has been documented for the patient 05/28/2024 1:52 PM EST documented as of this encounter Care Teams Reeling Machine Operator Relationship Specialty Start Date End Date Jevon Vazquez MD [address] [place] [address] #1 #1 [place] [address] PCP - General 03/23/22 documented as of this encounter
--- OUTSIDE RECORDS SUMMARY | 2024-09-19 09:30 | XMS_ITS | Encounter Summary ---
Author Organization Healthcare Address [address] [place] [address] Care Team Providers Care Sheet Cutter Name Role Phone Jevon Vazquez MD Primary Care Provider [phone] Reason for Visit * Reason Comments Follow-up Encounter Details Date Type Department Care Team (Latest Contact Info) Description 09/19/2024 9:30 AM EDT Clinical Support [facility] Cancer Acute Treatment Clinic [address] [place] [address] Acute myeloid leukemia not having achieved remission [...] [facility] Hematology/BMT and Cellular Therapy Program [address] [place] [address] 10/29/2024 1:30 PM EDT Office Visit [facility] Hematology/BMT and Cellular Therapy Program [address] [address] Zonia Hoffman, PRODUCTION SORTER 800 [facility] [address] [place] [address] 10/29/2024 3:00 PM EDT Appointment [facility] Infusion Clinic 2 [address] [place] [address] 10/30/2024 3:00 PM EDT Appointment [facility]fusion [facility] 2 [address] [place] [address] 10/31/2024 3:00 PM EDT Appointment [facility] Infusion [facility] 2 [address] [place] [address] 11/01/2024 3:00 PM EDT Appointment [facility]fusion [facility] 2 [address] [place] [address] 11/02/2024 3:00 PM EDT Appointment [facility] Infusion Clinic 2 [address] [place] [address] 2024 3:00 PM EDT Appointment [facility] Infusion Clinic 2 [address] [place] [address] 11/04/2024 3:00 PM EDT Appointment [facility] Infusion Clinic 2 [address] [place] [address] documented as of this encounter Procedures Procedure Name Priority Date/Time Associated Diagnosis Comments PLATELET COUNT, BLOOD STAT 09/19/2024 10:04 AM EDT PREPARE PLATELETS Routine 09/19/2024 9:0 8 AM EDT documented in this encounter Results * (ABNORMAL) Platelet count (09/19/2024 10:04 AM EDT) Platelet Count 61(L) 155 - 369 10*3/uL LAB HEMATOLOGY METHOD 09/19/2024 10:19 AM EDT [facility] Blood Blood sample taken from central line / Unknown (Port) Long-term Catheter / Unknown 09/19/2024 10:04 AM EDT 09/19/2024 10:18 AM EDT us New Mckinney MD LAB BLOOD ORDERABLES Final Re sult [facility] [address] [place] [address] * Transfuse platelets, Irradiated (09/19/2024 10:02 AM EDT) us Lexi Ferraro APRN BLOOD TRANSFUSION ORDERABL ES Final Result * Prepare Leukocyte Reduced Platelets (09/19/2024 9:08 AM EDT) Product Code [id number] CH BLOO D BANK Dispense Status Transfused BLOOD BANK Blood Expiration Date [id number] BLOOD BANK Unit Number [id number] CH B LOOD BANK Product Blood Type 6200 BLOOD BANK Blood Type A+ BLOOD BANK us Provider Not In System BLOOD BANK PRODUCT ORD ERABLES Final Result BLOOD BANK 800 [place] [address], documented in this encounter Visit Diagnoses Diagnosis [...] documented as of this encounter Care Teams Sheet Cutter Relationship Specialty Start Date End Date Jevon Vazquez MD [address] [place] [address] #1 [address]1 [place] [address] PCP - General 03/23/22 documented as of this encounter
--- OUTSIDE RECORDS SUMMARY | 2024-09-19 12:00 | XMS_ITS | Encounter Summary ---
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) Procedures Leukemia/Lymphoma - Immunophenotyping by Flow Cytometry New Mckinney MD 800 [facility] [address] [address] Phone: tel: fax: Referral ID Status Reason Start Date Expiration Date V isits Requested Visits Authorized [id number] Authorized 09/11/2024 03/13/2026 1 1 Encounter Details Date Type Department Care Team (Latest Contact Info) Description 09/19/2024 12:00 PM EDT Procedure Visit [facility] Hematology/BMT and Cellular Therapy Program [address] [address] Lexi Ferraro, RODDY 800 [facility] [address] [address] Acute myeloid leukemia not having [...] to surronding structures. Alternatives discussed: Delayed treatment [place] protocol: Procedure explained and questions answered to [...] Upcoming Encounters Date Type Department Care Team ([facility] st Contact Info) Description 10/29/2024 1:00 PM EDT Clinical Support [facility] Hematology/BMT and Cellular Therapy Program [address] [address] 10/29/2024 1:30 PM EDT Office Visit [facility] Hematology/BMT and Cellular Therapy Program [address] [address] Zonia Hoffman APRN 800 [facility] [address] [place] [phone] 10/29/2024 3:00 PM EDT Appointment [facility] Infusion Clinic [address] [place] [address] 10/30/2024 3:00 PM EDT Appointment [facility] Infusion Clinic 2 [address] [place] [address] 10/31/2024 3:00 PM EDT Appointment [facility] Infusion Clinic 2 [address] [place] [address] 11/01/2024 3:00 PM EDT Appointment [facility] 2 [address] [place] [address] 11/02/2024 3:00 PM EDT Appointment [facility] 2 [address] [place] [address] 2024 3:00 PM EDT Appointment [facility] 2 [address] [place] [address] 11/04/2024 3:00 PM EDT Appointment [facility] 2 [address] [place] [address] documented as of this encounter Procedures Procedure [...] to surronding structures. Alternatives discussed: Delayed treatment [place] protocol: Procedure explained and questions answered to [...] Type Bone Marrow 09/24/2024 2:37 PM EDT [facility] Clinical Indication Myelodysplastic Syndrome 09/24/2024 2:37 PM EDT [facility] Specimen Adequacy Adequate 06/11/2 025 2:37 PM EDT [facility] Chromosome Analysis Result Giemsa-banded metaphase cells from unstimulated bone marrow cultures showed a 46,XX[20] chromosome pattern. 09/24/2024 2:37 PM EDT [facility] Interpretation Normal female chromosome analysis. No clonal abnormalities were detected at current resolution. Clinical correlation is recommended. # cells counted = 20 # cells analyzed = 20 # cells karyotyped = 2 Band resolution: 450-525 09/24/2024 2:[address] [facility] Pathologist Signature Reviewed by: Corey Tejada 09/24/2024 2:[address] [facility] Bone Marrow Non-blood Collection / Unknown 09/19/2024 7:29 AM EDT 09/19/2024 12:35 PM EDT us New Mckinney MD LAB CYTOGENETICS ORDERABLES F inal Result [facility] [address] [place] [address] * Myeloid Focused Panel, 50 gene (09/19/2024 7:29 AM EDT) Interpretation The following two (2) genes, TP53 and DNMT3A, with persistent variants have been detected in this bone marrow specimen. The variant, p.[id number], in TP53 gene and the variant, p.[id number], in the RUNX 1 gene are not detectable at current cutoff and coverage established in this lab. Gene: TP53 Mutation: c.814G>A; p.Qcm352Fpl Allele Frequency (%): 37% (45% Dec 2023) ID: [id number] Gene: DNMT3A Mutation: c.1522delC; p.[id number] 3 Allele Frequency (%): 36% (48% Dec 2023) Additional Details on Mutation Identified: Gene Transcript Genome Chrom Coordinate RefVar DNMT3A NM_[id number] Hg19 2 [id number] delC TP53 NM_000546.5 Hg19 17 [id number] G>A 09/29/2024 4:05 PM EDT [facility] Methodology The following 50 genes were [...] then sequenced on the Illumina NextSeq 2000 ([employer], [place]). A custom bioinformatics pipeline aligns [...] of hematologic malignancies. 09/29/2024 4:05 PM EDT [facility] Disclaimer This test was developed and its performance characteristics determined by the Clinical Molecular and Genomic Pathology Laboratory at the [facility]. It has not been cleared or [...] clinical laboratory testing. 09/29/2024 4:05 PM EDT [facility] Pathologist Signature Reviewed by: Corey Tejada 09/29/2024 4:05 PM EDT [facility] Bone Marrow Specimen from bone marrow obtained by aspiration / Unknown Non-blood Collection / Unknown 09/19/2024 7:29 AM EDT 09/19/2024 12:03 PM EDT us New Mckinney MD LAB MOLECULAR DIAGNOSTICS ORD ERABLES Final Result [facility] [place] [address], * Leukemia/Lymphoma - Immunophenotyping by Flow Cytometry (09/19/2024 7:29 AM EDT) Clinical Indication AML 09/22/2024 10:[address] [facility] Flow Cytometry Interpretation A. BONE MARROW FOR FLOW CYTOMETRY: - MIXED MARROW ELEMENTS WITH NO EVIDENCE OF INCREASED BLASTS OR ABNORMAL LYMPHOID POPULATIONS, SEE COMMENT. 09/22/2024 10:[address] [facility] Comments CD45/side scatter analysis shows a [...] surface light chains 09/22/2024 10:[address] [facility] Disclaimer This test was developed and its performance characteristics determined by the Immuno-Molecular Pathology Laboratory at the [facility]. It has not been cleared or [...] on the report. 09/22/2024 10:29 AM EDT [facility] Pathologist Signature Reviewed by: Lisandra Epstein MD 09/22/2024 10:29 AM EDT [facility] MRD Indicated Test Not Indicated 12/2024 10:29 AM EDT [facility] Bone Marrow Specimen from bone marrow obtained by aspiration / Unknown Non-blood Collection / Unknown 09/19/2024 7:29 AM EDT 09/19/2024 12:13 PM EDT us New Mckinney MD LAB FLOW CYTOMETRY ORDERABLES Final Result [facility] [address] [place] [address] * (ABNORMAL) CBC and differential (09/19/2024 7:29 AM EDT) WBC Count 2.70(L) 3.70 - 10.30 10*3/uL LAB HEMATOLOGY METHOD 09/19/2024 9:13 AM EDT [facility] RBC Count 1.86(L) 3.90 - 5.20 10*6/uL LAB HEMATOLOGY METHOD 09/19/2024 9:13 AM EDT [facility] HGB 7.1(L) 11.2 - 15.7 g/dL LAB HEMATOLOGY METHOD 09/19/2024 9:13 AM EDT [facility] HCT 21.5(L) 34.0 - 45.0 % LAB HEMATOLOGY METHOD 09/19/2024 9:13 AM EDT [facility] Platelet Count 14(LL) 155 - 369 10*3/uL LAB HEMATOLOGY METHOD 09/19/2024 9:13 AM EDT [facility] MCV 116(H) 79 - 98 fL LAB HEMATOLOGY METHOD 09/19/2024 9:13 AM EDT [facility] MCH 38.2(H) 26.0 - 32.0 pg LAB HEMATOLOGY METHOD 09/19/2024 9:13 AM EDT [facility] MCHC 33.0 30.7 - 35.5 g/dL LAB HEMATOLOGY METHOD 09/19/2024 9:13 AM EDT [facility] RDW 21.8(H) 11.5 - 14.5 % LAB HEMATOLOGY METHOD 09/19/2024 9:13 AM EDT [facility] MPV 13.5(H) 8.8 - 12.5 fL LAB HEMATOLOGY METHOD 09/19/2024 9:13 AM EDT [facility] nRBC 0.0 <=0.0 per 100 WBCs LAB HEMATOLOGY METHOD 09/19/2024 9:13 AM EDT [facility] Differential Type Automated LAB HEMATOLOGY METHOD 09/19/2024 9:13 AM EDT [facility] Neutrophils % 51 % LAB HEMATOLOGY METHOD 09/19/2024 9:13 AM EDT [facility] Lymphocytes % 41 % LAB HEMATOLOGY METHOD 09/19/2024 9:13 AM EDT [facility] Monocytes % 7 % LAB HEMATOLOGY METHOD 09/19/2024 9:13 AM EDT [facility] Eosinophils % 1 % LAB HEMATOLOGY METHOD 09/19/2024 9:13 AM EDT [facility] Basophils % 0 % LAB HEMATOLOGY METHOD 09/19/2024 9:13 AM EDT [facility] Immature Granulocytes % 0 % LAB HEMATOLOGY METHOD [facility] Neutrophils Absolute 1.35(L) 1.60 - 6.10 10*3/uL LAB HEMATOLOGY METHOD 09/19/2024 9:13 AM EDT [facility] Lymphocytes Absolute 1.10(L) 1.20 - 3.90 10*3/uL LAB HEMATOLOGY METHOD 09/19/2024 9[facility] Monocytes Absolute 0.20(L) 0.30 - 0.90 10*3/uL LAB HEMATOLOGY METHOD 09/19/2024 9:[facility] Eosinophils Absolute 0.03 0.00 - 0.50 10*3/uL LAB HEMATOLOGY METHOD 09/19/2024 9:13 AM EDT [facility] Basophils Absolute 0.01 0.00 - 0.10 10*3/uL LAB HEMATOLOGY METHOD 09/19/2024 9:[facility] Immature Granulocytes Absolute 0.01 0.00 - 0.06 10*3/uL LAB HEMATOLOGY METHOD 09/19/2024 9:13 AM EDT [facility] Blood Blood sample taken from central line / Unknown (Port) Long-term Catheter / Unknown 09/19/2024 7:29 AM EDT 09/19/2024 8:08 AM EDT Narrative [facility] - 09/19/2024 9:13 AM EDT Therapeutic decision making should be based on absolute values, rather than percentages. New Mckinney MD LAB BLOOD ORDERABLES Final Re sult [facility] [address] [place] [id number] * Bone marrow exam (09/19/2024 7:29 AM EDT) Case Report Bone Marrow Case: [id number] Authorizing Provider: New Mckinney MD Collected: 09/19/2024728 Ordering Location: [facility] Hematology/BMT and Received: 09/19/2024 1216 Cellular Therapy Program Pathologist: Lisandra Epstein MD Specimens: A) - Bone Marrow Aspirate, right B) - Bone Marrow Biopsy, right C) - Peripheral Blood for Bone Marrow 3:15 PM EDT [facility] Cytogenetics Report, Addendum Chromosome Analysis Result Giemsa-banded metaphase cells from unstimulated bone marrow cultures showed a 46,XX[20] chromosome pattern. Interpretation Normal female chromosome analysis. No clonal abnormalities were detected at current resolution. Clinical correlation is recommended. 3:15 PM EDT [facility] Addendum electronically signed by Lisandra Epstein MD on 09/24/2024 at 1630 EDT Addendum Interpretation The following two (2) genes, TP53 and DNMT3A, with persistent variants have been detected in this bone marrow specimen. The variant, p.Uei640Iwp, in TP53 gene and the variant, p.Lvv995orj, in the RUNX 1 gene are not detectable at current cutoff and coverage established in this lab. Gene: TP53 Mutation: c.814G>A; p.Qyi898Hbh Allele Frequency (%): 37% (45% Dec 2023) ID: [id number] Gene: DNMT3A Mutation: c.1522delC; p.Zlj808ZpawmNtv3 43 Allele Frequency (%): 36% (48% Dec 2023) Additional Details on Mutation Identified: 3:15 PM EDT [facility] Addendum electronically signed by Lisandra Epstein MD on 09/30/2024 at 1515 EDT Final Diagnosis PERIPHERAL BLOOD AND BONE MARROW, RIGHT POSTERIOR ILIAC CREST, (ASPIRATE SMEAR, AND CORE BIOPSY): - HYPOCELLULAR BONE MARROW WITH MARKEDLY DECREASED MEGAKARYOCYTES; NO SIGNIFICANT DYSPOIESIS OR INCREASE IN BLASTS. 5 3:15 PM EDT [facility] at 1453 EDT Clinical Information AML 09/14 3:15 PM EDT [facility] CBC and Differential [...] blasts are not seen. 3:15 PM EDT [facility] Bone Marrow Differential BONE MARROW DIFFERENTIAL: 200 cells Normal Patient Neutrophils 15-50 34 Metamyelocytes 4-19 3 Myelocytes 1-18 10 Promyelocytes 1-8 1 Blasts 0-2 1 Monocytes 0-5 4 Erythroid 16-38 22 Lymphocytes 3-24 13 Eosinophils 0-6 8 Basophils 0-2 0 Plasma cells 0-4 4 Other 5 3:15 PM EDT [facility] Bone Marrow Aspirate [...] Bone trabeculae are unremarkable. 3:15 PM EDT [facility] Special and Immunohistochemical Stains Special Stain: A1-1 Vazquez-Giemsa A1-2 Vazquez-Giemsa A1-3 Vazquez-Giemsa C1-1 Vazquez-Giemsa IHC: B1-2 CD34 All controls show appropriate reactivity. All immunohistochemis try, in situ hybridization, and histochemical tests were developed by and are performed at the [facility], [address] [place] [address]. All tests reported here, except those addressing [...] negativity on decalcified specimens. 3:15 PM T [facility] Flow Cytometry Interpretation MIXED MARROW ELEMENTS WITH NO EVIDENCE OF INCREASED BLASTS OR ABNORMAL LYMPHOID POPULATIONS ([id number]). 3:15 PM EDT [facility] CYTOGENETICS/MOLECULA R INTERPRETATION Correlation with cytogenetic/molec ular analysis is suggested. 3:15 PM T [facility] Gross Description B. RIGHT A single specimen is received in formalin labeled bone marrow biopsy right posterior iliac crest and consists of 2 piece(s) of red/white tissue measuring 2.1/0.3 cm in length 0.2 cm in diameter. The specimen is submitted in to Histology for decalcification and routine processing. Cold Time: <1m 3:15 PM T [facility] Note: A resident was involved in the service. I attest I examined the relevant preparations for the specimens and confirmed the diagnosis or interpretation. 3:15 PM T [facility] Bone Marrow Peripheral [...] PATHOLOGY ORDERABLES Edit ed Result - Final 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
--- OUTSIDE RECORDS SUMMARY | 2024-09-30 09:00 | XMS_ITS | Encounter Summary ---
Author Organization Healthcare Address [address] [place] [address] Care Team Providers Care Batting Machine Operator Insulation Name Role Phone Jevon Vazquez MD Primary Care Provider [phone] Reason for Visit * Reason Comments Labs Only Encounter Details Date Type Department Care Team ([facility] Contact Info) Description 09/30/2024 9:00 AM EDT Clinical Support [facility] Hematology/BMT and Cellular Therapy Program [address] [phone] Jyoti Kemp Acute myeloid leukemia not having [...] Upcoming Encounters Date Type Department Care Team ([facility] Contact Info) Description 10/29/2024 1:00 PM EDT Clinical Support [facility] Hematology/BMT and Cellular Therapy Program [address] [phone] 10/29/2024 1:30 PM EDT Office Visit [facility] Hematology/BMT and Cellular Therapy Program [address] [phone] Zonia Hoffman, TOP COATER 800 [facility] [address] [place] [phone] 10/29/2024 3:00 PM EDT Appointment [facility] [address] [place] [address] 10/30/2024 3:00 PM EDT Appointment [facility] [address] [place] [address] 10/31/2024 3:00 PM EDT Appointment [facility] [address] [place] [address] 11/01/2024 3:00 PM EDT Appointment [facility] [address] [place] [address] 11/02/2024 3:00 PM EDT Appointment [facility] [address] [place] [address] 2024 3:00 PM EDT Appointment [facility] [address] [place] [address] 11/04/2024 3:00 PM EDT Appointment [facility] [address] [place] [address] documented as of this encounter Procedures Procedure [...] - 99 mg/dL 09/30/2024 10:20 AM EDT [facility] BUN, Plasma 21 8 - 23 mg/dL 09/30/2024 10:20 AM EDT [facility] Creatinine, Plasma 1.00 0.60 - 1.10 mg/dL 09/30/2024 10:20 AM EDT [facility] BUN/Creatinine Ratio 21 09/30/2024 10:20 AM EDT [facility] Sodium, Plasma 137 136 - 145 mmol/L 09/30/2024 10:20 AM EDT [facility] Potassium, Plasma 3.8 3.6 - 4.9 mmol/L 09/30/2024 10:20 AM EDT [facility] Chloride, Plasma 107 97 - 107 mmol/L 09/30/2024 10:20 AM EDT [facility] CO2, Plasma 22 22 - 29 mmol/L 09/30/2024 10:20 AM EDT [facility] Anion Gap 8 6 - 16 mmol/L 09/30/2024 10:20 AM EDT [facility] Total Calcium, Plasma 9.8 8.9 - 10.2 mg/dL 09/30/2024 10:20 AM EDT [facility] Total Protein 5.9(L) 6.3 - 7.9 g/dL 09/30/2024 10:20 AM EDT [facility] Albumin, Plasma 3.8 3.5 - 5.2 g/dL 09/30/2024 10:20 AM EDT [facility] AST, Plasma 28 10 - 35 U/L 09/30/2024 10:20 AM EDT [facility] ALT, Plasma 14 10 - 35 U/L 09/30/2024 10:20 AM EDT [facility] Alkaline Phosphatase, Plasma 34(L) 46 - 142 U/L 09/30/2024 10:20 AM EDT [facility] Total Bilirubin, Plasma 0.3 0.2 - 1.1 mg/dL 09/30/2024 10:20 AM EDT [facility] eGFRcr 59.6 mL/min/1.7 3m*2 09/30/2024 10:20 AM EDT [facility] Comment:Reported eGFRcr in m L/min/1.73m2 is based the CKD-EPI 2020 equation that does not use a race coefficient. Blood Venous blood specimen / Unknown (Port) Long-term Catheter / Unknown 09/30/2024 9:11 AM EDT 09/30/2024 9:50 AM EDT us Zonia Hardy Crystalsky TOP COATER LAB BLOOD ORDERABLES Final Res ult [facility] [address] [place] [address] * (ABNORMAL) CBC and Differential (09/30/2024 9:11 AM EDT) WBC Count 3.34(L) 3.70 - 10.30 10*3/uL LAB HEMATOLOGY METHOD 09/30/2024 11:07 AM EDT [facility] RBC Count 1.91(L) 3.90 - 5.20 10*6/uL LAB HEMATOLOGY METHOD 09/30/2024 11:07 AM EDT [facility] HGB 7.7(L) 11.2 - 15.7 g/dL LAB HEMATOLOGY METHOD 09/30/2024 11:07 AM EDT [facility] HCT 22.8(L) 34.0 - 45.0 % LAB HEMATOLOGY METHOD 09/30/2024 11:07 AM EDT [facility] Platelet Count 17(LL) 155 - 369 10*3/uL LAB HEMATOLOGY METHOD 09/30/2024 11:07 AM EDT [facility] MCV 119(H) 79 - 98 fL LAB HEMATOLOGY METHOD 09/30/2024 11:07 AM EDT [facility] MCH 40.3(H) 26.0 - 32.0 pg LAB HEMATOLOGY METHOD 09/30/2024 11:07 AM EDT [facility] MCHC 33.8 30.7 - 35.5 g/dL LAB HEMATOLOGY METHOD 09/30/2024 11:07 AM EDT [facility] RDW 18.7(H) 11.5 - 14.5 % LAB HEMATOLOGY METHOD 09/30/2024 11:07 AM EDT [facility] MPV 11.1 8.8 - 12.5 fL LAB HEMATOLOGY METHOD 09/30/2024 11:07 AM EDT [facility] nRBC 0.0 <=0.0 per 100 WBCs LAB HEMATOLOGY METHOD 09/30/2024 11:07 AM EDT [facility] Differential Type Automated LAB HEMATOLOGY METHOD 09/30/2024 11:07 AM EDT [facility] Neutrophils % 65 % LAB HEMATOLOGY METHOD 09/30/2024 11:07 AM EDT [facility] Lymphocytes % 26 % LAB HEMATOLOGY METHOD 09/30/2024 11:07 AM EDT [facility] Monocytes % 7 % LAB HEMATOLOGY METHOD 09/30/2024 11:07 AM EDT [facility] Eosinophils % 1 % LAB HEMATOLOGY METHOD 09/30/2024 11:07 AM EDT [facility] Basophils % 1 % LAB HEMATOLOGY METHOD 09/30/2024 11:07 AM EDT [facility] Immature Granulocytes % 0 % LAB HEMATOLOGY METHOD 09/30/2024 11:07 AM EDT [facility] Neutrophils Absolute 2.17 1.60 - 6.10 10*3/uL LAB HEMATOLOGY METHOD 09/30/2024 11:07 AM EDT [facility] Lymphocytes Absolute 0.87(L) 1.20 - 3.90 10*3/uL LAB HEMATOLOGY METHOD 09/30/2024 11:07 AM EDT [facility] Monocytes Absolute 0.24(L) 0.30 - 0.90 10*3/uL LAB HEMATOLOGY METHOD 09/30/2024 11:07 AM EDT [facility] Eosinophils Absolute 0.03 0.00 - 0.50 10*3/uL LAB HEMATOLOGY METHOD 09/30/2024 11:07 AM EDT [facility] Basophils Absolute 0.02 0.00 - 0.10 10*3/uL LAB HEMATOLOGY METHOD 09/30/2024 11:07 AM EDT [facility] Immature Granulocytes Absolute 0.01 0.00 - 0.06 10*3/uL LAB HEMATOLOGY METHOD 09/30/2024 11:07 AM EDT [facility] Blood Venous blood specimen / Unknown (Port) Long-term Catheter / Unknown 09/30/2024 9:11 AM EDT 09/30/2024 9:34 AM EDT [facility] - 09/30/2024 11:07 AM EDT Therapeutic decision making should be based on absolute values, rather than percentages. 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
--- OUTSIDE RECORDS SUMMARY | 2024-09-30 09:30 | XMS_ITS | Encounter Summary ---
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 female. Referring Physician: Zonia Hoffman, YOUNG ADULT LIBRARIAN 800 [facility] [address] [address] Primary Care Provider: Jevon Vazquez MD Chief [...] k/??L. 12/2023- seen by Dr. Manzano in [facility] for evaluation of anemia and lymphocytosis. [...] interphase cells examined show a deletion of H7V592. Next generation sequencing: Abnormal: TP53 (c.814G>A; p.[id number]) frequency 45%, DMNT3A (c.1522delC; p.[id number]) frequency 48%, RUNX1 (c.336_338delGCC; p.Otm320jde) frequency 35% Azacitidine + Venetoclax Cycle 1: [...] - Continue local lab checks MWF at [facility] Allogenic transplant planning. 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 However, given her older age > 70, she would benefit from a geriatric BMT program and will make referrals should she be interested. Expected pancytopenia related to chemotherapy/AML. Check CBC x 3 times/week at [facility] Labs reviewed today, Hgb 7.7 , [...] charts, reviewing results, and documenting. RODDY Cristina [facility] HEMATOLOGY/BMT AND CELLULAR THERAPY PROGRAM 800 [facility] [address] 40 minutes was spent on this encounter; [...] Upcoming Encounters Date Type Department Care Team ([facility] st Contact Info) Description 10/29/2024 1:00 PM EDT Clinical Support [facility] Hematology/BMT and Cellular Therapy Program 750 [facility], [address] [place] [address] [place] [address] 10/29/2024 1:30 PM EDT Office Visit [facility] Hematology/BMT and Cellular Therapy Program [address] [place] [address] Zonia Hoffman, YOUNG ADULT LIBRARIAN [address] [facility] [address] [place] [phone] 10/29/2024 3:00 PM EDT Appointment [facility] [address] [place] [address] 10/30/2024 3:00 PM EDT Appointment [facility] 2 [address] [place] [address] 10/31/2024 3:00 PM EDT Appointment [facility] [address] [place] [address] 11/01/2024 3:00 PM EDT Appointment [facility] 2 [address] [place] [address] 11/02/2024 3:00 PM EDT Appointment [facility] 2 [address] [place] [address] 2024 3:00 PM EDT Appointment [facility] [address] [place] [address] 11/04/2024 3:00 PM EDT Appointment [facility] 2 [address] [place] [address] documented as of this encounter Results * (ABNORMAL) Comprehensive Metabolic Panel, Plasma (09/30/2024 9:11 AM EDT) [facility] Glucose, Plasma 135(H) 74 - 99 mg/dL 09/30/2024 10:[address] [facility] BUN, Plasma 21 8 - 23 mg/dL 09/30/2024 10:[address] [facility] Creatinine, Plasma 1.00 0.60 - 1.10 mg/dL 09/30/2024 10:[address] [facility] BUN/Creatinine Ratio 21 09/30/2024 10:[address] [facility] Sodium, Plasma 137 136 - 145 mmol/L 09/30/2024 10:[address] [facility] Potassium, Plasma 3.8 3.6 - 4.9 mmol/L 09/30/2024 10:[address] [facility] Chloride, Plasma 107 97 - 107 mmol/L 09/30/2024 10:[address] [facility] CO2, Plasma 22 22 - 29 mmol/L 09/30/2024 10:[address] [facility] Anion Gap 8 6 - 16 mmol/L 09/30/2024 10:[address] [facility] Total Calcium, Plasma 9.8 8.9 - 10.2 mg/dL 09/30/2024 10:[address] [facility] Total Protein 5.9(L) 6.3 - 7.9 g/dL 09/30/2024 10:[address] [facility] Albumin, Plasma 3.8 3.5 - 5.2 g/dL 09/30/2024 10:[address] [facility] AST, Plasma 28 10 - 35 U/L 09/30/2024 10:[address] [facility] ALT, Plasma 14 10 - 35 U/L 09/30/2024 10:[address] [facility] Alkaline Phosphatase, Plasma 34(L) 46 - 142 U/L 09/30/2024 10:[address] [facility] Total Bilirubin, Plasma 0.3 0.2 - 1.1 mg/dL 09/30/2024 10:[address] [facility] eGFRcr 59.6 mL/min/1.7 3m*2 09/30/2024 10:[address] [facility] Comment:Reported eGFRcr in m L/min/1.73m2 is based the CKD-EPI 2020 equation that does not use a race coefficient. Blood Venous blood specimen / Unknown (Port) Long-term Catheter / Unknown 09/30/2024 9:11 AM EDT 09/30/2024 9:50 AM EDT us Zonia Hoffman YOUNG ADULT LIBRARIAN LAB BLOOD ORDERABLES Final Res ult [facility] [address] [place] [address] * (ABNORMAL) CBC and Differential (09/30/2024 9:11 AM EDT) WBC Count 3.34(L) 3.70 - 10.30 10*3/uL LAB HEMATOLOGY METHOD 09/30/2024 11:[address] [facility] RBC Count 1.91(L) 3.90 - 5.20 10*6/uL LAB HEMATOLOGY METHOD 09/30/2024 11:[address] [facility] HGB 7.7(L) 11.2 - 15.7 g/dL LAB HEMATOLOGY METHOD 09/30/2024 11:[address] [facility] HCT 22.8(L) 34.0 - 45.0 % LAB HEMATOLOGY METHOD 09/30/2024 11:[address] [facility] Platelet Count 17(LL) 155 - 369 10*3/uL LAB HEMATOLOGY METHOD 09/30/2024 11:[address] [facility] MCV 119(H) 79 - 98 fL LAB HEMATOLOGY METHOD 09/30/2024 11:[address] [facility] MCH 40.3(H) 26.0 - 32.0 pg LAB HEMATOLOGY METHOD 09/30/2024 11:[address] [facility] MCHC 33.8 30.7 - 35.5 g/dL LAB HEMATOLOGY METHOD 09/30/2024 11:[address] [facility] RDW 18.7(H) 11.5 - 14.5 % LAB HEMATOLOGY METHOD 09/30/2024 11:[address] [facility] MPV 11.1 8.8 - 12.5 fL LAB HEMATOLOGY METHOD 09/30/2024 11:[address] [facility] nRBC 0.0 <=0.0 per 100 WBCs LAB HEMATOLOGY METHOD 09/30/2024 11:[address] [facility] Differential Type Automated LAB HEMATOLOGY METHOD 09/30/2024 11:[address] [facility] Neutrophils % 65 % LAB HEMATOLOGY METHOD 09/30/2024 11:[address] [facility] Lymphocytes % 26 % LAB HEMATOLOGY METHOD 09/30/2024 11:[address] [facility] Monocytes % 7 % LAB HEMATOLOGY METHOD 09/30/2024 11:[address] [facility] Eosinophils % 1 % LAB HEMATOLOGY METHOD 09/30/2024 11:[address] [facility] Basophils % 1 % LAB HEMATOLOGY METHOD 09/30/2024 11:[address] [facility] Immature Granulocytes % 0 % LAB HEMATOLOGY METHOD 09/30/2024 11:[address] [facility] Neutrophils Absolute 2.17 1.60 - 6.10 10*3/uL LAB HEMATOLOGY METHOD 09/30/2024 11:[address] [facility] Lymphocytes Absolute 0.87(L) 1.20 - 3.90 10*3/uL LAB HEMATOLOGY METHOD 09/30/2024 11:[address] [facility] Monocytes Absolute 0.24(L) 0.30 - 0.90 10*3/uL LAB HEMATOLOGY METHOD 09/30/2024 11:[address] [facility] Eosinophils Absolute 0.03 0.00 - 0.50 10*3/uL LAB HEMATOLOGY METHOD 09/30/2024 11:[address] [facility] Basophils Absolute 0.02 0.00 - 0.10 10*3/uL LAB HEMATOLOGY METHOD 09/30/2024 11:[address] [facility] Immature Granulocytes Absolute 0.01 0.00 - 0.06 10*3/uL LAB HEMATOLOGY METHOD 09/30/2024 11:[address] [facility] Blood Venous blood specimen / Unknown (Port) Long-term Catheter / Unknown 09/30/2024 9:11 AM EDT 09/30/2024 9:[address] [facility] - 09/30/2024 11:07 AM EDT Therapeutic decision making should be based on absolute values, rather than percentages. us Zonia Hoffman APRN LAB BLOOD ORDERABLES Final Res ult [facility] [address] [place] [address] documented in this encounter Visit Diagnoses Diagnosis [...] documented as of this encounter Care Teams Boat Rental Clerk Relationship Specialty Start Date End Date Jevon Vazquez MD [address] [place] [address] #1 #1 [place] [address] PCP - General 03/23/22 documented as of this encounter
--- OUTSIDE RECORDS SUMMARY | 2024-10-15 08:54 | XMS_ITS | Encounter Summary ---
Author Organization Healthcare Address [address] [place] [address] Care Team Providers Care Supervisor White Sugar Name Role Phone Jevon Vazquez MD Primary Care Provider [phone] Encounter Details Date Type Department Care Team [...] Hematology/BMT and Cellular Therapy Program [address] [address] 10/29/2024 1:30 PM EDT Office Visit [facility] Hematology/BMT and Cellular Therapy Program [address] [address] Zonia Hoffman, HEEL WASHER STRINGING MACHINE OPERATOR 800 [facility] [address] [place] [address] 10/29/2024 3:00 PM EDT Appointment [facility] 2 [address] [place] [address] 10/30/2024 3:00 PM EDT Appointment [facility] 2 [address] [place] [address] 10/31/2024 3:00 PM EDT Appointment [facility] 2 [address] [place] [address] 11/01/2024 3:00 PM EDT Appointment [facility] 2 [address] [place] [address] 11/02/2024 3:00 PM EDT Appointment [facility] 2 [address] [place] [address] 2024 3:00 PM EDT Appointment [facility] 2 [address] [place] [address] 11/04/2024 3:00 PM EDT Appointment [facility] 2 [address] [place] [address] documented as of this encounter Visit Diagnoses Not on filedocumented in this encounter Additional Health Concerns Assessment Noted Time A fall risk assessment has been complete d for the patient 09/30/2024 9:33 AM EDT A Body Mass Index follow-up plan has been documented for the patient 05/28/2024 1:52 PM EST documented as of this encounter Care Teams Supervisor White Sugar Relationship Specialty Start Date End Date Jevon Vazquez MD [address] [place] [address] #1 [address]1 [place] [address] PCP - General 03/23/22 documented as of this encounter
--- OUTSIDE RECORDS SUMMARY | 2024-10-15 08:54 | XMS_ITS | Encounter Summary ---
Author Organization [facility] Address [address] [place] [address] Care Team Providers Care Call Center Director Name Role Phone Jevon Vazquez MD Primary Care Provider [phone] Reason for Visit * Reason Comments Med Refill Encounter Details Date Type Department Care Team ([facility] Contact Info) Description 01/30/2024 Refill [facility] Hematology/BMT and Cellular Therapy Program [address] [phone] New Mckinney MD 800 [facility] [address] [place] [address] Social History Tobacco Use Types Packs/Day Years [...] [facility] Contact Info) Description 10/29/2024 1:00 PM EDT Clinical Support [facility] Hematology/BMT and Cellular Therapy Program [address] [place] [address] 10/29/2024 1:30 PM EDT Office Visit [facility] Hematology/BMT and Cellular Therapy Program [address] [address] Zonia Hoffman, RN MOBILE [address] [facility] [address] [place] [address] 10/29/2024 3:00 PM EDT Appointment [facility] [address] [place] [address] 10/30/2024 3:00 PM EDT Appointment [facility] 2 [address] [place] [address] 10/31/2024 3:00 PM EDT Appointment [facility] 2 [address] [place] [address] 11/01/2024 3:00 PM EDT Appointment [facility] 2 [address] [place] [address] 11/02/2024 3:00 PM EDT Appointment [facility] 2 [address] [place] [address] 2024 3:00 PM EDT Appointment [facility] 2 [address] [place] [address] 11/04/2024 3:00 PM EDT Appointment [facility] 2 [address] [place] [address] documented as of this encounter Visit Diagnoses Not on filedocumented in this encounter Additional Health Concerns Assessment Noted Time A fall risk assessment has been complete d for the patient 01/11/2024 9:16 AM EDT A Body Mass Index follow-up plan has been documented for the patient 01/21/2024 6:16 AM EDT documented as of this encounter Care Teams Call Center Director Relationship Specialty Start Date End Date Jevon Vazquez MD [address] [place] [address] #1 #1 [place] [address] PCP - General 03/23/22 documented as of this encounter
--- OUTSIDE RECORDS SUMMARY | 2024-10-15 08:54 | XMS_ITS | Encounter Summary ---
Author Organization Healthcare Address [address] [place] [address] Care Team Providers Care Patrol Agent Name Role Phone Jevon Vazquez MD Primary Care Provider [phone] Encounter Details Date Type Department Care Team [...] Hematology/BMT and Cellular Therapy Program [address] [address] 10/29/2024 1:30 PM EDT Office Visit [facility] Hematology/BMT and Cellular Therapy Program [address] [address] Zonia Hoffman, LEGAL BILLING COORDINATOR 800 [facility] [address] [place] [address] 10/29/2024 3:00 PM EDT Appointment [facility] 2 [address] [place] [address] 10/30/2024 3:00 PM EDT Appointment [facility] 2 [address] [place] [address] 10/31/2024 3:00 PM EDT Appointment [facility] 2 [address] [place] [address] 11/01/2024 3:00 PM EDT Appointment [facility] 2 [address] [place] [address] 11/02/2024 3:00 PM EDT Appointment [facility] 2 [address] [place] [address] 2024 3:00 PM EDT Appointment [facility] 2 [address] [place] [address] 11/04/2024 3:00 PM EDT Appointment [facility] 2 [address] [place] [address] documented as of this encounter Visit Diagnoses Not on filedocumented in this encounter Additional Health Concerns Assessment Noted Time A fall risk assessment has been complete d for the patient 09/30/2024 9:33 AM EDT A Body Mass Index follow-up plan has been documented for the patient 05/28/2024 1:52 PM EST documented as of this encounter Care Teams Patrol Agent Relationship Specialty Start Date End Date Jevon Vazquez MD [address] [place] [address] #1 [address]1 [place] [address] PCP - General 03/23/22 documented as of this encounter
--- OUTSIDE RECORDS SUMMARY | 2024-10-15 08:55 | XMS_ITS | Encounter Summary ---
Author Organization Healthcare Address [address] [place] [address] Care Team Providers Care Shed Hand Name Role Phone Jevon Vazquez MD Primary Care Provider [phone] Encounter Details Date Type Department Care Team [...] Hematology/BMT and Cellular Therapy Program [address] [address] 10/29/2024 1:30 PM EDT Office Visit [facility] Hematology/BMT and Cellular Therapy Program [address] [address] Zonia Hoffman, CROP RANCH HAND 800 [facility] [address] [place] [address] 10/29/2024 3:00 PM EDT Appointment [facility] 2 [address] [place] [address] 10/30/2024 3:00 PM EDT Appointment [facility] 2 [address] [place] [address] 10/31/2024 3:00 PM EDT Appointment [facility] 2 [address] [place] [address] 11/01/2024 3:00 PM EDT Appointment [facility] 2 [address] [place] [address] 11/02/2024 3:00 PM EDT Appointment [facility] 2 [address] [place] [address] 2024 3:00 PM EDT Appointment [facility] 2 [address] [place] [address] 11/04/2024 3:00 PM EDT Appointment [facility] 2 [address] [place] [address] documented as of this encounter Visit Diagnoses Not on filedocumented in this encounter Additional Health Concerns Assessment Noted Time A fall risk assessment has been complete d for the patient 07/30/2024 8:29 AM EDT A Body Mass Index follow-up plan has been documented for the patient 05/28/2024 1:52 PM EST documented as of this encounter Care Teams Shed Hand Relationship Specialty Start Date End Date Jevon Vazquez MD [address] [place] [address] #1 #1 [place] [address] PCP - General 03/23/22 documented as of this encounter
--- OUTSIDE RECORDS SUMMARY | 2024-10-15 08:55 | XMS_ITS | Encounter Summary ---
Author Organization [facility] Address [address] [place] [address] Care Team Providers Care Orientation & Mobility Specialist Name Role Phone Jevon Vazquez MD Primary Care Provider [phone] Reason for Visit * Reason Comments Med Refill Encounter Details Date Type Department Care Team ([facility] [address] [facility] Contact Info) Description 09/12/2024 Refill [facility] Hematology/BMT and Cellular Therapy Program [address] [phone] New Mckinney MD 800 [facility] [address] [place] [address] Social History Tobacco Use Types Packs/Day Years [...] Care Team ([facility] [address] [facility] Contact Info) Description 10/29/2024 1:00 PM EDT Clinical Support [facility] Hematology/BMT and Cellular Therapy Program [address] [phone] 10/29/2024 1:30 PM EDT Office Visit [facility] Hematology/BMT and Cellular Therapy Program [address] [address] Zonia Hoffman, SUBSTATION OPERATOR AUTOMATIC [address] [facility] [address] [place] [address] 10/29/2024 3:00 PM EDT Appointment [facility] 2 [address] [place] [address] 10/30/2024 3:00 PM EDT Appointment [facility] 2 [address] [place] [address] 10/31/2024 3:00 PM EDT Appointment [facility] 2 [address] [place] [address] 11/01/2024 3:00 PM EDT Appointment [facility] 2 [address] [place] [address] 11/02/2024 3:00 PM EDT Appointment [facility] 2 [address] [place] [address] 2024 3:00 PM EDT Appointment [facility] 2 [address] [place] [address] 11/04/2024 3:00 PM EDT Appointment [facility] 2 [address] [place] [address] documented as of this encounter Visit Diagnoses Not on filedocumented in this encounter Additional Health Concerns Assessment Noted Time A fall risk assessment has been complete d for the patient 07/30/2024 8:29 AM EDT A Body Mass Index follow-up plan has been documented for the patient 05/28/2024 1:52 PM EST documented as of this encounter Care Teams Orientation & Mobility Specialist Relationship Specialty Start Date End Date Jevon Vazquez MD [address] [place] [address] #1 #1 [place] [address] PCP - General 03/23/22 documented as of this encounter
--- OUTSIDE RECORDS SUMMARY | 2024-10-15 08:55 | XMS_ITS | Encounter Summary ---
Author Organization Healthcare Address [address] [place] [address] Care Team Providers Care Insurance Verifier Name Role Phone Jevon Vazquez MD Primary Care Provider [phone] Encounter Details Date Type Department Care Team (Latest Contact Info) Description 10/13/2024 Travel Social History Tobacco Use Types Packs/Day [...] Hematology/BMT and Cellular Therapy Program [address] [address] 10/29/2024 1:30 PM EDT Office Visit [facility] Hematology/BMT and Cellular Therapy Program [address] [address] Zonia Hoffman, COMPUTER PUBLISHER 800 [facility] [address] [place] [address] 10/29/2024 3:00 PM EDT Appointment [facility] 2 [address] [place] [address] 10/30/2024 3:00 PM EDT Appointment [facility] 2 [address] [place] [address] 10/31/2024 3:00 PM EDT Appointment [facility] 2 [address] [place] [address] 11/01/2024 3:00 PM EDT Appointment [facility] 2 [address] [place] [address] 11/02/2024 3:00 PM EDT Appointment [facility] 2 [address] [place] [address] 2024 3:00 PM EDT Appointment [facility] 2 [address] [place] [address] 11/04/2024 3:00 PM EDT Appointment [facility] 2 [address] [place] [address] documented as of this encounter Visit Diagnoses Not on filedocumented in this encounter Additional Health Concerns Assessment Noted Time A fall risk assessment has been complete d for the patient 09/30/2024 9:33 AM EDT A Body Mass Index follow-up plan has been documented for the patient 05/28/2024 1:52 PM EST documented as of this encounter Care Teams Insurance Verifier Relationship Specialty Start Date End Date Jevon Vazquez MD [address] [place] [address] #1 [address]1 [place] [address] PCP - General 03/23/22 documented as of this encounter
--- OUTSIDE RECORDS SUMMARY | 2024-10-15 08:55 | XMS_ITS | Encounter Summary ---
Author Organization Healthcare Address [address] [place] [address] Care Team Providers Care Armature Connector Name Role Phone Jevon Vazquez MD Primary Care Provider [phone] Encounter Details Date Type Department Care Team [...] Hematology/BMT and Cellular Therapy Program [address] [address] 10/29/2024 1:30 PM EDT Office Visit [facility] Hematology/BMT and Cellular Therapy Program [address] [address] Zonia Hoffman, FRUIT PACKER 800 [facility] [address] [place] [address] 10/29/2024 3:00 PM EDT Appointment [facility] [address] [place] [address] 10/30/2024 3:00 PM EDT Appointment [facility] [address] [place] [address] 10/31/2024 3:00 PM EDT Appointment [facility] 2 [address] [place] [address] 11/01/2024 3:00 PM EDT Appointment [facility] 2 [address] [place] [address] 11/02/2024 3:00 PM EDT Appointment [facility] 2 [address] [place] [address] 2024 3:00 PM EDT Appointment [facility] 2 [address] [place] [address] 11/04/2024 3:00 PM EDT Appointment [facility] [address] [place] [address] documented as of this encounter Visit Diagnoses Not on filedocumented in this encounter Additional Health Concerns Assessment Noted Time A fall risk assessment has been complete d for the patient 07/30/2024 8:29 AM EDT A Body Mass Index follow-up plan has been documented for the patient 05/28/2024 1:52 PM EST documented as of this encounter Care Teams Armature Connector Relationship Specialty Start Date End Date Jevon Vazquez MD [address] [place] [address] #1 [address] [place] [address] PCP - General 03/23/22 documented as of this encounter
--- OUTSIDE RECORDS SUMMARY | 2024-10-15 08:55 | XMS_ITS | Encounter Summary ---
Author Organization Healthcare Address [address] [place] [address] Care Team Providers Care Color Maker Name Role Phone Jevon Vazquez MD Primary Care Provider [phone] Encounter Details Date Type Department Care Team [...] Hematology/BMT and Cellular Therapy Program [address] [address] 10/29/2024 1:30 PM EDT Office Visit [facility] Hematology/BMT and Cellular Therapy Program [address] [address] Zonia Hoffman, FINANCIAL AID 800 [facility] [address] [place] [address] 10/29/2024 3:00 PM EDT Appointment [facility] [address] [place] [address] 10/30/2024 3:00 PM EDT Appointment [facility] 2 [address] [place] [address] 10/31/2024 3:00 PM EDT Appointment [facility] 2 [address] [place] [address] 11/01/2024 3:00 PM EDT Appointment [facility] 2 [address] [place] [address] 11/02/2024 3:00 PM EDT Appointment [facility] 2 [address] [place] [address] 2024 3:00 PM EDT Appointment [facility] 2 [address] [place] [address] 11/04/2024 3:00 PM EDT Appointment [facility] 2 [address] [place] [address] documented as of this encounter Visit Diagnoses Not on filedocumented in this encounter Additional Health Concerns Assessment Noted Time A fall risk assessment has been complete d for the patient 09/19/2024 8:38 AM EDT A Body Mass Index follow-up plan has been documented for the patient 05/28/2024 1:52 PM EST documented as of this encounter Care Teams Color Maker Relationship Specialty Start Date End Date Jevon Vazquez MD [address] [place] [address] #1 [address]1 [place] [address] PCP - General 03/23/22 documented as of this encounter
--- OUTSIDE RECORDS SUMMARY | 2024-10-15 08:55 | XMS_ITS | Encounter Summary ---
Author Organization Healthcare Address [address] [place] [address] Care Team Providers Care Home Specialist Name Role Phone Jevon Vazquez MD Primary Care Provider [phone] Encounter Details Date Type Department Care Team [...] Hematology/BMT and Cellular Therapy Program [address] [address] 10/29/2024 1:30 PM EDT Office Visit [facility] Hematology/BMT and Cellular Therapy Program [address] [address] Zonia Hoffman, PLATE GRINDER 800 [facility] [address] [place] [address] 10/29/2024 3:00 PM EDT Appointment [facility] [address] [place] [address] 10/30/2024 3:00 PM EDT Appointment [facility] 2 [address] [place] [address] 10/31/2024 3:00 PM EDT Appointment [facility] 2 [address] [place] [address] 11/01/2024 3:00 PM EDT Appointment [facility] 2 [address] [place] [address] 11/02/2024 3:00 PM EDT Appointment [facility] 2 [address] [place] [address] 2024 3:00 PM EDT Appointment [facility] 2 [address] [place] [address] 11/04/2024 3:00 PM EDT Appointment [facility] 2 [address] [place] [address] documented as of this encounter Visit Diagnoses Not on filedocumented in this encounter Additional Health Concerns Assessment Noted Time A fall risk assessment has been complete d for the patient 09/19/2024 8:38 AM EDT A Body Mass Index follow-up plan has been documented for the patient 05/28/2024 1:52 PM EST documented as of this encounter Care Teams Home Specialist Relationship Specialty Start Date End Date Jevon Vazquez MD [address] [place] [address] #1 [address]1 [place] [address] PCP - General 03/23/22 documented as of this encounter
--- OUTSIDE RECORDS SUMMARY | 2024-10-15 08:55 | XMS_ITS | Encounter Summary ---
Author Organization [facility] Address [address] [place] [address] Care Team Providers Care Vpk Teacher Name Role Phone Jevon Vazquez MD Primary Care Provider [phone] Reason for Visit * Reason Comments Med Refill Encounter Details Date Type Department Care Team ([facility] Contact Info) Description 10/14/2024 Refill [facility] Hematology/BMT and Cellular Therapy Program [address] [phone] [place]in[place] MD 800 [facility] [address] [place] [phone] Social History Tobacco Use Types Packs/Day Years [...] Care Team ([facility] Contact Info) Description 10/29/2024 1:00 PM EDT Clinical Support [facility] Hematology/BMT and Cellular Therapy Program [address] [phone] 10/29/2024 1:30 PM EDT Office Visit [facility] Hematology/BMT and Cellular Therapy Program [address] [address] Zonia Hoffman, ELECTION WATCHER [address] [facility] [address] [place] [address] 10/29/2024 3:00 PM EDT Appointment [facility] 2 [address] [place] [address] 10/30/2024 3:00 PM EDT Appointment [facility] 2 [address] [place] [address] 10/31/2024 3:00 PM EDT Appointment [facility] 2 [address] [place] [address] 11/01/2024 3:00 PM EDT Appointment [facility] 2 [address] [place] [address] 11/02/2024 3:00 PM EDT Appointment [facility] 2 [address] [place] [address] 2024 3:00 PM EDT Appointment [facility] 2 [address] [place] [address] 11/04/2024 3:00 PM EDT Appointment [facility] 2 [address] [place] [address] documented as of this encounter Visit Diagnoses Not on filedocumented in this encounter Additional Health Concerns Assessment Noted Time A fall risk assessment has been complete d for the patient 09/30/2024 9:33 AM EDT A Body Mass Index follow-up plan has been documented for the patient 05/28/2024 1:52 PM EST documented as of this encounter Care Teams Vpk Teacher Relationship Specialty Start Date End Date Jevon Vazquez MD [address] [place] [address] #1 #1 [place] [address] PCP - General 03/23/22 documented as of this encounter
--- OUTSIDE RECORDS SUMMARY | 2024-10-15 08:55 | XMS_ITS | Encounter Summary ---
Author Organization Healthcare Address [address] [place] [address] Care Team Providers Care Sterile Process Coordinator Name Role Phone Jevon Vazquez MD Primary Care Provider [phone] Encounter Details Date Type Department Care Team [...] Hematology/BMT and Cellular Therapy Program [address] [address] 10/29/2024 1:30 PM EDT Office Visit [facility] Hematology/BMT and Cellular Therapy Program [address] [address] Zonia Hoffman, REAL ESTATE LEASING AGENT 800 [facility] [address] [place] [address] 10/29/2024 3:00 PM EDT Appointment [facility] 2 [address] [place] [address] 10/30/2024 3:00 PM EDT Appointment [facility] 2 [address] [place] [address] 10/31/2024 3:00 PM EDT Appointment [facility] 2 [address] [place] [address] 11/01/2024 3:00 PM EDT Appointment [facility] 2 [address] [place] [address] 11/02/2024 3:00 PM EDT Appointment [facility] 2 [address] [place] [address] 2024 3:00 PM EDT Appointment [facility] 2 [address] [place] [address] 11/04/2024 3:00 PM EDT Appointment [facility] 2 [address] [place] [address] documented as of this encounter Visit Diagnoses Not on filedocumented in this encounter Additional Health Concerns Assessment Noted Time A fall risk assessment has been complete d for the patient 07/30/2024 8:29 AM EDT A Body Mass Index follow-up plan has been documented for the patient 05/28/2024 1:52 PM EST documented as of this encounter Care Teams Sterile Process Coordinator Relationship Specialty Start Date End Date Jevon Vazquez MD [address] [place] [address] #1 [address]1 [place] [address] PCP - General 03/23/22 documented as of this encounter
--- OUTSIDE RECORDS SUMMARY | 2024-10-15 08:55 | XMS_ITS | Encounter Summary ---
Author Organization Healthcare Address [address] [place] [address] Care Team Providers Care Band Head Saw Operator Name Role Phone Jevon Vazquez MD Primary Care Provider [phone] Encounter Details Date Type Department Care Team [...] Hematology/BMT and Cellular Therapy Program [address] [address] 10/29/2024 1:30 PM EDT Office Visit [facility] Hematology/BMT and Cellular Therapy Program [address] [address] Zonia Hoffman, MACHINE SPRING FORMER 800 [facility] [address] [place] [address] 10/29/2024 3:00 PM EDT Appointment [facility] 2 [address] [place] [address] 10/30/2024 3:00 PM EDT Appointment [facility] 2 [address] [place] [address] 10/31/2024 3:00 PM EDT Appointment [facility] 2 [address] [place] [address] 11/01/2024 3:00 PM EDT Appointment [facility] 2 [address] [place] [address] 11/02/2024 3:00 PM EDT Appointment [facility] 2 [address] [place] [address] 2024 3:00 PM EDT Appointment [facility] 2 [address] [place] [address] 11/04/2024 3:00 PM EDT Appointment [facility] 2 [address] [place] [address] documented as of this encounter Visit Diagnoses Not on filedocumented in this encounter Additional Health Concerns Assessment Noted Time A fall risk assessment has been complete d for the patient 07/30/2024 8:29 AM EDT A Body Mass Index follow-up plan has been documented for the patient 05/28/2024 1:52 PM EST documented as of this encounter Care Teams Band Head Saw Operator Relationship Specialty Start Date End Date Jevon Vazquez MD [address] [place] [address] #1 [address]1 [place] [address] PCP - General 03/23/22 documented as of this encounter
--- OUTSIDE RECORDS SUMMARY | 2024-10-15 08:55 | XMS_ITS | Encounter Summary ---
Author Organization Healthcare Address [address] [place] [address] Care Team Providers Care Mumps Developer Name Role Phone Jevon Vazquez MD Primary Care Provider [phone] Encounter Details Date Type Department Care Team ([facility] st Contact Info) Description 10/13/2024 Telephone [facility] Hematology/BMT and Cellular Therapy Program [address] [address] Zonia Hoffman, DRAINAGE DESIGN COORDINATOR 800 [facility] [address] [place] [address] Social History Tobacco Use Types Packs/Day Years [...] Miscellaneous Notes * Telephone Encounter - 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 RN - 10/13/2024 3:56 PM EDT RN spoke with pt and reviewed labs and updated schedule. She verbalized understanding. * Telephone Encounter - Elizabet Paz - 10/13/2024 10:44 AM EDT Patient calling because her labs were not up to pair for treatment. Patient stated that treatment needs to be delayed again Callback number: [phone] documented in this encounter Plan of Treatment Upcoming Encounters Date Type Department Care Team ([facility] st Contact Info) Description 10/29/2024 1:00 PM EDT Clinical Support [facility] Hematology/BMT and Cellular Therapy Program [address] [address] 10/29/2024 1:30 PM EDT Office Visit [facility] Hematology/BMT and Cellular Therapy Program [address] [address] Zonia Hoffman, DRAINAGE DESIGN COORDINATOR 800 [facility] [address] [place] [address] 10/29/2024 3:00 PM EDT Appointment [facility] 2 [address] [place] [address] 10/30/2024 3:00 PM EDT Appointment [facility] 2 [address] [place] [address] 10/31/2024 3:00 PM EDT Appointment [facility] 2 [address] [place] [address] 11/01/2024 3:00 PM EDT Appointment [facility] 2 [address] [place] [address] 11/02/2024 3:00 PM EDT Appointment [facility] 2 [address] [place] [address] 2024 3:00 PM EDT Appointment [facility] 2 [address] [place] [address] 11/04/2024 3:00 PM EDT Appointment [facility] 2 [address] [place] [address] documented as of this encounter Visit Diagnoses Not on filedocumented in this encounter Additional Health Concerns Assessment Noted Time A fall risk assessment has been complete d for the patient 09/30/2024 9:33 AM EDT A Body Mass Index follow-up plan has been documented for the patient 05/28/2024 1:52 PM EST documented as of this encounter Care Teams Mumps Developer Relationship Specialty Start Date End Date Jevon Vazquez MD [address] [place] [address] #1 #1 [place] [address] PCP - General 03/23/22 documented as of this encounter
--- OUTSIDE RECORDS SUMMARY | 2024-10-15 08:55 | XMS_ITS | Encounter Summary ---
Author Organization Healthcare Address [address] [place] [address] Care Team Providers Care Computer Security Coordinator Name Role Phone Jevon Vazquez MD Primary Care Provider [phone] Encounter Details Date Type Department Care Team [...] Hematology/BMT and Cellular Therapy Program [address] [address] 10/29/2024 1:30 PM EDT Office Visit [facility] Hematology/BMT and Cellular Therapy Program [address] [address] Zonia Hoffman, RADIO ANNOUNCER 800 [facility] [address] [place] [address] 10/29/2024 3:00 PM EDT Appointment [facility] 2 [address] [place] [address] 10/30/2024 3:00 PM EDT Appointment [facility] 2 [address] [place] [address] 10/31/2024 3:00 PM EDT Appointment [facility] 2 [address] [place] [address] 11/01/2024 3:00 PM EDT Appointment [facility] 2 [address] [place] [address] 11/02/2024 3:00 PM EDT Appointment [facility] 2 [address] [place] [address] 2024 3:00 PM EDT Appointment [facility] 2 [address] [place] [address] 11/04/2024 3:00 PM EDT Appointment [facility] 2 [address] [place] [address] documented as of this encounter Visit Diagnoses Not on filedocumented in this encounter Additional Health Concerns Assessment Noted Time A fall risk assessment has been complete d for the patient 09/19/2024 8:38 AM EDT A Body Mass Index follow-up plan has been documented for the patient 05/28/2024 1:52 PM EST documented as of this encounter Care Teams Computer Security Coordinator Relationship Specialty Start Date End Date Jevon Vazquez MD [address] [place] [address] #1 [address] [place] [address] PCP - General 03/23/22 documented as of this encounter
--- OUTSIDE RECORDS SUMMARY | 2024-10-15 08:55 | XMS_ITS | Encounter Summary ---
Author Organization Healthcare Address [address] [place] [address] Care Team Providers Care Investigation Division Lieutenant Name Role Phone Jevon Vazquez MD Primary Care Provider [phone] Encounter Details Date Type Department Care Team ([facility] Contact Info) Description 09/19/2024 Orders Only [facility] Hematology/BMT and Cellular Therapy Program [address] [phone] 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, RN [facility] Social History [...] Encounters Date Type Department Care Team ([facility] Contact Info) Description 10/29/2024 1:00 PM EDT Clinical Support [facility] Hematology/BMT and Cellular Therapy Program [address] [phone] 10/29/2024 1:30 PM EDT Office Visit [facility] Hematology/BMT and Cellular Therapy Program [address] [phone] Zonia Hoffman, TEST SKEIN WINDER 800 [facility] [address] [place] [address] 10/29/2024 3:00 PM EDT Appointment [facility] 2 [address] [place] [address] 10/30/2024 3:00 PM EDT Appointment [facility] 2 [address] [place] [address] 10/31/2024 3:00 PM EDT Appointment [facility] 2 [address] [place] [address] 11/01/2024 3:00 PM EDT Appointment [facility] 2 [address] [place] [address] 11/02/2024 3:00 PM EDT Appointment [facility] 2 [address] [place] [address] 2024 3:00 PM EDT Appointment [facility] 2 [address] [place] [address] 11/04/2024 3:00 PM EDT Appointment [facility] 2 [address] [place] [address] documented as of this encounter Visit Diagnoses Not on filedocumented in this encounter Additional Health Concerns Assessment Noted Time A fall risk assessment has been complete d for the patient 09/19/2024 8:38 AM EDT A Body Mass Index follow-up plan has been documented for the patient 05/28/2024 1:52 PM EST documented as of this encounter Care Teams Investigation Division Lieutenant Relationship Specialty Start Date End Date Jevon Vazquez MD [address] [place] [address] #1 #1 [place] [address] PCP - General 03/23/22 documented as of this encounter
--- OUTSIDE RECORDS SUMMARY | 2024-10-15 08:55 | XMS_ITS | Encounter Summary ---
Author Organization Healthcare Address [address] [place] [address] Care Team Providers Care Purchasing Expeditor Name Role Phone Jevon Vazquez MD Primary [...] Hematology/BMT and Cellular Therapy Program [address] [address] 10/29/2024 1:30 PM EDT Office Visit [facility] Hematology/BMT and Cellular Therapy Program [address] [address] Zonia Hoffman, ELECTRONIC DRAFTER 800 [facility] [address] [place] [address] 10/29/2024 3:00 PM EDT Appointment [facility] 2 [address] [place] [address] 10/30/2024 3:00 PM EDT Appointment [facility] 2 [address] [place] [address] 10/31/2024 3:00 PM EDT Appointment [facility] 2 [address] [place] [address] 11/01/2024 3:00 PM EDT Appointment [facility] 2 [address] [place] [address] 11/02/2024 3:00 PM EDT Appointment [facility] 2 [address] [place] [address] 2024 3:00 PM EDT Appointment [facility] 2 [address] [place] [address] 11/04/2024 3:00 PM EDT Appointment [facility] 2 [address] [place] [address] documented as of this encounter Visit Diagnoses Not on filedocumented in this encounter Additional Health Concerns Assessment Noted Time A fall risk assessment has been complete d for the patient 09/30/2024 9:33 AM EDT A Body Mass Index follow-up plan has been documented for the patient 05/28/2024 1:52 PM EST documented as of this encounter Care Teams Purchasing Expeditor Relationship Specialty Start Date End Date Jevon Vazquez MD [address] [place] [address] #1 [address]1 [place] [address] PCP - General 03/23/22 documented as of this encounter
--- OUTSIDE RECORDS SUMMARY | 2024-10-15 08:55 | XMS_ITS ---
Author Organization [facility] Address [address] [place] [address] Care Team Providers Care Nurse Anesthesia Program Director Name Role Phone Jevon Vazquez MD Primary Care Provider [phone] Active Problems Problem Noted Date Diagnosed Date [...]
--- OUTSIDE RECORDS SUMMARY | 2024-10-15 08:55 | XMS_ITS | Encounter Summary ---
Author Organization Healthcare Address [address] [place] [address] Care Team Providers Care Flotation Tank Operator Name Role Phone Jevon Vazquez MD Primary Care Provider [phone] Encounter Details Date Type Department Care Team [...] Hematology/BMT and Cellular Therapy Program [address] [address] 10/29/2024 1:30 PM EDT Office Visit [facility] Hematology/BMT and Cellular Therapy Program [address] [address] Zonia Hoffman, ANIMAL PHYSIOLOGY TEACHER 800 [facility] [address] [place] [address] 10/29/2024 3:00 PM EDT Appointment [facility] 2 [address] [place] [address] 10/30/2024 3:00 PM EDT Appointment [facility] 2 [address] [place] [address] 10/31/2024 3:00 PM EDT Appointment [facility] 2 [address] [place] [address] 11/01/2024 3:00 PM EDT Appointment [facility] 2 [address] [place] [address] 11/02/2024 3:00 PM EDT Appointment [facility] 2 [address] [place] [address] 2024 3:00 PM EDT Appointment [facility] 2 [address] [place] [address] 11/04/2024 3:00 PM EDT Appointment [facility] 2 [address] [place] [address] documented as of this encounter Visit Diagnoses Not on filedocumented in this encounter Additional Health Concerns Assessment Noted Time A fall risk assessment has been complete d for the patient 09/19/2024 8:38 AM EDT A Body Mass Index follow-up plan has been documented for the patient 05/28/2024 1:52 PM EST documented as of this encounter Care Teams Flotation Tank Operator Relationship Specialty Start Date End Date Jevon Vazquez MD [address] [place] [address] #1 #1 [place] [address] PCP - General 03/23/22 documented as of this encounter
--- OUTSIDE RECORDS SUMMARY | 2024-10-15 08:55 | XMS_ITS | Clinical Summary ---
Author Organization [facility] Address [address] 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 Encounters Date Type Department Care Team Description 10/14/2024 Refill [facility] Hematology/BMT and Cellular Therapy Program [address] [place] [phone] New Mckinney MD 10/13/2024 Telephone [facility]ology[facility] Cellular Therapy Program [address] [place] [address] [phone] Zonia Hoffman APRN 10/13/2024 Travel 10/12/2024 Travel 10/11/2024 Travel 10/09/2024 Travel 10/08/2024 Travel 10/08/2024 Orders Only [facility] Hematology/BMT and Cellular Therapy Program [address] [place] [address] [phone] 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, animal cruelty investigation supervisor 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) 10/07/2024 Travel 09/30/2024 9:30 AM EDT Office Visit [facility]ology[facility] Cellular Therapy Program [address] [phone] Zonia Hoffman, RODDY 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) 09/30/2024 9:00 AM EDT Clinical Support [facility]BMT [facility] Cellular Therapy [facility] [address] [place] [address] Jyoti Kemp 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) 09/30/2024 Telephone [facility]BMT [facility] Cellular Therapy Program [address] [place] [phone] Zoraida Good RN 09/30/2024 Travel 09/29/2024 Travel 09/28/2024 Travel 09/27/2024 Travel 09/26/2024 Travel 09/25/2024 Travel 09/24/2024 Travel 09/23/2024 Travel 09/19/2024 12:00 PM EDT Procedure Visit [facility]ology/BMT and Cellular Therapy Program [address] [phone] Lexi Ferraro, RODDY 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) 09/19/2024 9:30 AM EDT Clinical Support [facility] 800 [facility], [address]nd [place] [phone] 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) 09/19/2024 7:30 AM EDT Clinical Support [facility] Hematology/BMT and Cellular Therapy Program [address] [place] [address] 09/19/2024 Telephone [facility]ology[facility]BMT [facility] Cellular Therapy Program [address] [phone] Romana Richmond, RN 09/19/2024 Orders Only [facility]ology[facility]BMT and Cellular Therapy Program [address] [phone] 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, RN 09/19/2024 Travel 09/15/2024 Telephone [facility]ology[facility]BMT and Cellular Therapy Program [address] [place] [address] Zonia Hoffman APRN 09/15/2024 Travel 09/14/2024 Travel 09/13/2024 Travel 09/12/2024 Travel 09/12/2024 Refill [facility]ology[facility]BMT [facility] Cellular Therapy Program [address] [phone] New Mckinney MD 09/11/2024 Travel 09/10/2024 Travel 09/01/2024 Telephone [facility]MT [facility] Cellular Therapy Program [address] [phone] Zonia Hoffman, JAVA SOFTWARE DEVELOPER 08/31/2024 Travel 08/30/2024 Travel 08/18/2024 Telephone [facility]MT [facility] Cellular Therapy Program [address] [phone] Romana Gorman, JAVA SOFTWARE DEVELOPER 08/17/2024 Travel 08/16/2024 Travel 08/15/2024 Travel 08/13/2024 Travel 07/30/2024 8:30 AM EDT Office Visit [facility]ology[facility]BMT [facility] Cellular Therapy Program [address] [phone] Zonia Hoffman, JAVA SOFTWARE DEVELOPER Pancytopenia (Primary Dx) 07/30/2024 8:00 AM EDT Clinical Support [facility]BMT [facility] Cellular Therapy [facility] [address] [place] [address] [phone] Pancytopenia 07/30/2024 Telephone [facility]ology[facility]BMT [facility] Cellular Therapy Program [address] [phone] Romana Richmond RN 07/30/2024 Refill [facility]ology[facility]MT [facility] Cellular Therapy Program [address] [phone] Daxa Elliott, animal cruelty investigation supervisor 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); Immunosuppressed status (CMS/HCC) 07/30/2024 Travel 07/29/2024 Travel 07/28/2024 Travel 07/27/2024 Travel 07/26/2024 Travel 07/24/2024 Travel 07/23/2024 Travel 07/19/2024 Refill [facility]BMT [facility] Cellular Therapy Program [address] [place] [address] [place] [address] Zonia Hoffman APRN 07/16/2024 9:00 AM EDT Office Visit [facility]BMT [facility] Cellular Therapy Program [address] [place] [phone] Zonia Hoffman, JAVA SOFTWARE DEVELOPER Pancytopenia (Primary Dx); 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) 07/16/2024 8:30 AM EDT Clinical Support [facility]ology[facility]BMT [facility] Cellular Therapy Program [address] [place] [address] [place] [phone] 07/16/2024 Travel from Last 3 Months Immunizations Immunization [...] Upcoming Encounters Date Type Department Care Team ([facility] st Contact Info) Description 10/29/2024 1:00 PM EDT Clinical Support [facility]ematology/BMT and Cellular Therapy Program [address] [place] [address] 10/29/2024 1:30 PM EDT Office Visit [facility] Hematology/BMT and Cellular Therapy Program [address] [phone] Zonia Hoffmna, JAVA SOFTWARE DEVELOPER 800 [facility] [address] [place] [phone] 10/29/2024 3:00 PM EDT Appointment [facility] [address] [place] [address] 10/30/2024 3:00 PM EDT Appointment [facility] 2 [address] [place] [address] 10/31/2024 3:00 PM EDT Appointment [facility] 2 [address] [place] [address] 11/01/2024 3:00 PM EDT Appointment [facility] 2 [address] [place] [address] 11/02/2024 3:00 PM EDT Appointment [facility] 2 [address] [place] [address] 2024 3:00 PM EDT Appointment [facility] [address] [place] [address] 11/04/2024 3:00 PM EDT Appointment [facility] [address] [place] [address] Health Maintenance Due Date Last Done Comments [...] [facility]-Zoster Vaccines (1 of 2) 05/16/2023 03/21/2023 KBQ-SEOIM-85 Vaccine ( season) 2023 02/18/2021, 07/10/2020, 06/12/2020 [facility]-Bone Density Scan 07/25/2024 07/25/2022, 023 [facility]-Influenza Vaccine (#1) 12/15/202403/21, 03/21/2023, 02/10/2021, Additional history exists [facility]-Depression Screening 01/06/2025 01/07/2024 [facility]-DTaP,Tdap,and Td Vaccines (2 - Td or Tdap) 03/18/2032 03/18/2022 [facility]Y-Pneumococcal Vaccine: 50+ Years Completed 09/07/2021, 01/21/2019, 01/18/2018 [facility]-Hepatitis C Screening Completed 01/07/2024 HPV Vaccines Aged Out No longer eligi [...] this topic Medical Devices Implanted Type Area Babbitt Spinner Device Identifier Shelf Expiration Date Model / Serial / Lot Port Clearvue Power 8fr - [id number] Implanted:Qty: 1 on 01/21/2024 by Ness Sargent MD at [facility] Peripherial Vascular-[id number] / / Procedures Procedure Name Priority Date/Time [...] ult [facility] [address] [place] [address] * (ABNORMAL) Comprehensive Metabolic Panel, Plasma (09/30/2024 [...] Res ult [facility] [address] [place] [address] * BIOPSY BONE MARROW (09/19/2024 12:00 PM [...] to surronding structures. Alternatives discussed: Delayed treatment [place] protocol: Procedure explained and questions answered to [...] at the site and an 11 gauge WemoLabshidi needle was inserted into the right posterior [...] LAB HEMATOLOGY METHOD 09/19/2024 10:19 AM EDT [facility] Blood Blood sample taken from central line / Unknown (Port) Long-term Catheter / Unknown 09/19/2024 10:04 AM EDT 09/19/2024 10:18 AM EDT New Mckinney MD LAB BLOOD ORDERABLES Final Re sult [facility] [address] [place] [address] * Transfuse platelets, Irradiated (09/19/2024 10:02 AM EDT) Lexi A Jasmine JAVA SOFTWARE DEVELOPER BLOOD TRANSFUSION ORDERABL ES Final Result * Prepare Leukocyte Reduced Platelets (09/19/2024 9:08 AM EDT) Product Code C0202I16 BLOO D BANK Dispense Status Transfused BLOOD BANK Blood Expiration Date [id number] BLOOD BANK Unit Number [id number] CH B LOOD BANK Product Blood Type 6200 BLOOD BANK Blood Type A+ BLOOD BANK us Provider Not In System BLOOD BANK PRODUCT ORD ERABLES Final Result BLOOD BANK [address] [place] [address], * Myeloid Focused Panel, 50 gene (09/19/2024 7:29 AM EDT) Interpretation The following two (2) genes, TP53 and DNMT3A, with persistent variants have been detected in this bone marrow specimen. The variant, p.[id number], in TP53 gene and the variant, p.[id number], in the RUNX 1 gene are not detectable at current cutoff and coverage established in this lab. Gene: TP53 Mutation: c.814G>A; p.Vgt109Acv Allele Frequency (%): 37% (45% Dec 2023) ID: [id number] Gene: DNMT3A Mutation: c.1522delC; p.[id number] 3 Allele Frequency (%): 36% (48% Dec 2023) Additional Details on Mutation Identified: Gene Transcript Genome Chrom Coordinate RefVar DNMT3A [id number] Hg19 2 [id number] delC TP53 [id number] Hg19 17 [id number] G>A 09/29/2024 4:05 PM EDT [facility] [...] then sequenced on the Illumina NextSeq 2000 ([employer] [place]). A custom bioinformatics pipeline aligns [...] of hematologic malignancies. 09/29/2024 4:05 PM EDT [facility] Disclaimer This test was [...] clinical laboratory testing. 09/29/2024 4:05 PM EDT [facility] Pathologist Signature Reviewed by: Corey Tejada 09/29/2024 4:05 PM EDT [facility] Bone Marrow Specimen from bone marrow obtained by aspiration / Unknown Non-blood Collection / Unknown 09/19/2024 7:29 AM EDT 09/19/2024 12:03 PM EDT us New Mckinney MD LAB MOLECULAR DIAGNOSTICS ORD ERABLES Final Result [facility] [address] [place] [address], * Chromosome Karyotype, Oncology (09/19/2024 7:29 AM EDT) Specimen Type Bone Marrow 09/24/2024 2:[address] [facility] Clinical Indication Myelodysplastic Syndrome 09/24/2024 2:37 PM EDT [facility] Specimen Adequacy Adequate 025 2:[address] [facility] Chromosome Analysis Result Giemsa-banded metaphase cells from unstimulated bone marrow cultures showed a 46,XX[20] chromosome pattern. 09/24/2024 2:37 PM EDT [facility] Interpretation Normal female chromosome analysis. No clonal abnormalities were detected at current resolution. Clinical correlation is recommended. # cells counted = 20 # cells analyzed = 20 # cells karyotyped = 2 Band resolution: 450-525 09/24/2024 2:[address] [facility] Pathologist Signature Reviewed by: Corey Tejada 09/24/2024 2:37 PM EDT [facility] Bone Marrow Non-blood Collection / Unknown 09/19/2024 7:29 AM EDT 09/19/2024 12:35 PM EDT us New Mckinney MD LAB CYTOGENETICS ORDERABLES F inal Result [facility] [address] [place] [address] * Leukemia/Lymphoma - Immunophenotyping by Flow Cytometry (09/19/2024 7:29 AM EDT) Clinical Indication AML 09/22/2024 10:[address] [facility] Flow Cytometry Interpretation A. BONE MARROW FOR FLOW CYTOMETRY: - MIXED MARROW ELEMENTS WITH NO EVIDENCE OF INCREASED BLASTS OR ABNORMAL LYMPHOID POPULATIONS, SEE COMMENT. 09/22/2024 10:29 AM EDT [facility] Comments CD45/side scatter analysis shows [...] light chains 09/22/2024 10:[address] [facility] Disclaimer This test was developed and its [...] on the report. 09/22/2024 10:29 AM EDT [facility] Pathologist Signature Reviewed by: Lisandra Epstein MD 09/22/2024 10:29 AM EDT [facility] MRD Indicated Test Not Indicated 12/2024 10:29 AM EDT [facility] Bone Marrow Specimen from bone marrow obtained by aspiration / Unknown Non-blood Collection / Unknown 09/19/2024 7:29 AM EDT 09/19/2024 12:13 PM EDT us New Mckinney MD LAB FLOW CYTOMETRY ORDERABLES Final Result [facility] [address] [place] [address] * Bone marrow exam (09/19/2024 7:29 AM EDT) Case Report Bone Marrow Case: [id number] Authorizing Provider: New Mckinney MD Collected: 09/19/2024 0729 Ordering Location: [facility] Hematology/BMT and Received: 09/19/2024 1216 Cellular Therapy Program Pathologist: Lisandra Epstein MD Specimens: A) - Bone Marrow Aspirate, right B) - Bone Marrow Biopsy, right C) - Peripheral Blood for Bone Marrow 3:15 PM EDT [facility] Cytogenetics Report, Addendum Chromosome Analysis Result Giemsa-banded metaphase cells from unstimulated bone marrow cultures showed a 46,XX[20] chromosome pattern. Interpretation Normal female chromosome analysis. No clonal abnormalities were detected at current resolution. Clinical correlation is recommended. 3:15 PM EDT [facility] Addendum electronically signed by Lisandra Epstein MD on 09/24/2024 at 1630 EDT Addendum Interpretation The following two (2) genes, TP53 and DNMT3A, with persistent variants have been detected in this bone marrow specimen. The variant, p.Rbt245Kya, in TP53 gene and the variant, p.Iyk042mwt, in the RUNX 1 gene are not detectable at current cutoff and coverage established in this lab. Gene: TP53 Mutation: c.814G>A; p.Xov585Nge Allele Frequency (%): 37% (45% Dec 2023) ID: [id number] Gene: DNMT3A Mutation: c.1522delC; p.Jns725VsjtkPpm5 43 Allele Frequency (%): 36% (48% Dec 2023) Additional Details on Mutation Identified: 3:15 PM EDT [facility] Addendum electronically signed by Lisandra Epstein MD on 09/30/2024 at 1515 EDT Final Diagnosis PERIPHERAL BLOOD AND BONE MARROW, RIGHT POSTERIOR ILIAC CREST, (ASPIRATE SMEAR, AND CORE BIOPSY): - HYPOCELLULAR BONE MARROW WITH MARKEDLY DECREASED MEGAKARYOCYTES; NO SIGNIFICANT DYSPOIESIS OR INCREASE IN BLASTS. 3:15 PM EDT [facility] at 1453 EDT Clinical Information AML 09/14 3:15 PM EDT [facility] CBC and Differential PERIPHERAL BLOOD: [...] blasts are not seen. 3:15 PM EDT [facility] Bone Marrow Differential BONE MARROW DIFFERENTIAL: 200 cells Normal Patient Neutrophils 15-50 34 Metamyelocytes 4-19 3 Myelocytes 1-18 10 Promyelocytes 1-8 1 Blasts 0-2 1 Monocytes 0-5 4 Erythroid 16-38 22 Lymphocytes 3-24 13 Eosinophils 0-6 8 Basophils 0-2 0 Plasma cells 0-4 4 Other 3:15 PM EDT [facility] Bone Marrow Aspirate and Biopsy [...] Bone trabeculae are unremarkable. 3:[address] [facility] Special and Immunohistochemical Stains Special Stain: A1-1 Vazquez-Giemsa A1-2 Vazquez-Giemsa A1-3 Vazquez-Giemsa C1-1 Vazquez-Giemsa IHC: B1-2 CD34 All controls show appropriate reactivity. All immunohistochemis try, in situ hybridization, and histochemical tests were developed by and are performed at the [facility], [address] [place] [address]. All tests reported here, except those addressing [...] negativity on decalcified specimens. 3:15 PM EDT [facility] Flow Cytometry Interpretation MIXED MARROW ELEMENTS WITH NO EVIDENCE OF INCREASED BLASTS OR ABNORMAL LYMPHOID POPULATIONS ([id number]). 3:15 PM EDT [facility] CYTOGENETICS/MOLECULA R INTERPRETATION Correlation with cytogenetic/molec ular analysis is suggested. 3:15 PM EDT [facility] Gross Description B. RIGHT A single specimen is received in formalin labeled bone marrow biopsy right posterior iliac crest and consists of 2 piece(s) of red/white tissue measuring 2.1/0.3 cm in length 0.2 cm in diameter. The specimen is submitted in to Histology for decalcification and routine processing. Cold Time: <1m 3:15 PM EDT [facility] Note: A resident was involved in the service. I attest I examined the relevant preparations for the specimens and confirmed the diagnosis or interpretation. 3:[address] [facility] Bone Marrow Peripheral blood specimen / Unknown [...] PATHOLOGY ORDERABLES Edit ed Result - Final [facility] [address] [place] [address] * Hepatitis C Antibody w/Reflex to HCV Quant PCR (01/07/2024 8:42 AM EDT) Hepatitis C Antibody Negative Negative 01/07/2024 10:13 AM EDT [facility] Blood Venous blood specimen / Unknown Venipuncture / Unknown 01/07/2024 8:42 AM EDT 01/07/2024 9:25 AM EDT us New Mckinney MD LAB BLOOD ORDERABLES Final Re sult [facility] [address] [place] [address] from Last 3 Months or Most Recently Relevant to Health Maintenance Insurance MEDICARE [facility] Care Teams Etcher Hand Relationship Specialty Start Date End Date Jevon Vazquez MD [address] [place] [address] #1 #1 [place] [id number] [facility] - General 03/23/22
--- OUTSIDE RECORDS SUMMARY | 2024-10-15 08:55 | XMS_ITS | Encounter Summary ---
Author Organization Healthcare Address [address] [place] [address] Care Team Providers Care Hplc Chemist Name Role Phone Jevon Vazquez MD Primary Care Provider [phone] Encounter Details Date Type Department Care Team [...] Hematology/BMT and Cellular Therapy Program [address] [phone] 10/29/2024 1:30 PM EDT Office Visit [facility] Hematology/BMT and Cellular Therapy Program [address] [phone] Zonia Hoffman, MEDICARE BILLER 800 [facility] [address] [place] [phone] 10/29/2024 3:00 PM EDT Appointment [facility] [address] [place] [address] 10/30/2024 3:00 PM EDT Appointment [facility] 2 [address] [place] [address] 10/31/2024 3:00 PM EDT Appointment [facility] 2 [address] [place] [address] 11/01/2024 3:00 PM EDT Appointment [facility] 2 [address] [place] [address] 11/02/2024 3:00 PM EDT Appointment [facility] [address] [place] [address] 2024 3:00 PM EDT Appointment [facility] 2 [address] [place] [address] 11/04/2024 3:00 PM EDT Appointment [facility] [address] [place] [address] documented as of this encounter Visit Diagnoses Not on filedocumented in this encounter Additional Health Concerns Assessment Noted Time A fall risk assessment has been complete d for the patient 07/30/2024 8:29 AM EDT A Body Mass Index follow-up plan has been documented for the patient 05/28/2024 1:52 PM EST documented as of this encounter Care Teams Hplc Chemist Relationship Specialty Start Date End Date Jevon Vazquez MD [address] [place] [address] #1 [address] [place] [address] PCP - General 03/23/22 documented as of this encounter
--- OUTSIDE RECORDS SUMMARY | 2024-10-15 08:55 | XMS_ITS | Encounter Summary ---
Author Organization Healthcare Address [address] [place] [address] Care Team Providers Care Chief Executive Or Managing Director Name Role Phone Jevon Vazquez MD Primary Care Provider [phone] Encounter Details Date Type Department Care Team [...] Hematology/BMT and Cellular Therapy Program [address] [phone] 10/29/2024 1:30 PM EDT Office Visit [facility] Hematology/BMT and Cellular Therapy Program [address] [address] Zonia Hoffman, CHAIR LIFT OPERATOR 800 [facility] [address] [place] [phone] 10/29/2024 3:00 PM EDT Appointment [facility] [address] [place] [address] 10/30/2024 3:00 PM EDT Appointment [facility] 2 [address] [place] [address] 10/31/2024 3:00 PM EDT Appointment [facility] 2 [address] [place] [address] 11/01/2024 3:00 PM EDT Appointment [facility] 2 [address] [place] [address] 11/02/2024 3:00 PM EDT Appointment [facility] 2 [address] [place] [address] 2024 3:00 PM EDT Appointment [facility] 2 [address] [place] [address] 11/04/2024 3:00 PM EDT Appointment [facility] 2 [address] [place] [address] documented as of this encounter Visit Diagnoses Not on filedocumented in this encounter Additional Health Concerns Assessment Noted Time A fall risk assessment has been complete d for the patient 07/30/2024 8:29 AM EDT A Body Mass Index follow-up plan has been documented for the patient 05/28/2024 1:52 PM EST documented as of this encounter Care Teams Chief Executive Or Managing Director Relationship Specialty Start Date End Date Jevon Vazquez MD [address] [place] [address] #1 [address]1 [place] [address] PCP - General 03/23/22 documented as of this encounter
--- OUTSIDE RECORDS SUMMARY | 2024-10-15 08:55 | XMS_ITS | Clinical Summary ---
Author Organization [facility] Address [address] [place] [address] Care Team Providers Care Interior Block Wirer Name Role Phone David Vazquez Primary Care Provider [phone] Allergies No known active allergies Medications atorvastatin [...] series) 2025 Medical Devices Implanted Type Area Brokerage Manager Device Identifier Shelf Expiration Date Model / Serial / Lot Mis Ply Scr 6.5x50mm - [id number] Implanted:Qty : 1 on 01/30/2023 by Ivan Bartholomew MD at [facility] Screw N/A: Spine Lumbar [employer] [id number] / / Mis Ply Scr 6.5x45mm - [id number] Implanted:Qty : 3 on 01/30/2023 by Ivan Bartholomew MD at [facility] Screw N/A: Spine Lumbar [employer] [id number] / / Reline Mas Reduction Screw 7.5x45 - [id number] Implanted:Qty : 2 on 01/30/2023 by Ivan Bartholomew MD at [facility] Screw N/A: Spine Lumbar [employer] [id number] / / Grft Dbm Vesuvius Putty 5cc - [id number] Implanted:Qty : 1 on 01/30/2023 by Ivan Bartholomew MD at [facility] [employer] [id number] 04/20/2025 [id number] P / [id number] / Putty I-Factor 5.0cc - [id number] Implanted:Qty : 1 on 01/30/2023 by Ivan Bartholomew MD at [facility] N/A: Spine Lumbar [employer] 03/15/2025 [id number] / / [id number] Modulus Xlw [id number] 10 Degree - [id number] Implanted:Qty : 1 on 01/30/2023 by Ivan Bartholomew MD at [facility] N/A: Spine Lumbar [employer] [id number] / / [id number] Modulus Xlw [id number] - [id number] Implanted:Qty : 1 on 01/30/2023 by Ivan Bartholomew MD at [facility] N/A: Spine Lumbar [employer] 09/28/2027 [id number] / / [id number] Reln Lock Scr 5.5mm Opn Tulip - [id number] Implanted:Qty : 6 on 01/30/2023 by Ivan Bartholomew MD at [facility] N/A: Spine Lumbar [employer] [id number] / / Reln Mas Ti Petar 5.5x70mm - [id number] Implanted:Qty : 2 on 01/30/2023 by Ivan Bartholomew MD at [facility] N/A: Spine Lumbar [employer] [id number] / / Procedures Procedure Name Priority Date/Time [...] Hgb A1C 6.0(H) 4.0 - 5.6 % [facility] Comment: Reference Ranges for Hgb [...] Average Glucose 126(H) 68 - 114 mg/dL [facility] Whole Blood (Blood) 01/24/2023 2:32 PM EDT 01/24/2023 6:00 PM EDT us Ivan Bartholomew MD CHEMISTRY ORDERABLES Fin al Result [facility] [address] * (ABNORMAL) BASIC METABOLIC PANEL (BMP=EP1) (01/24/2023 2:32 PM EDT) Sodium 141 135 - 146 mmol/L [facility] Potassium 4.8 3.5 - 5.1 mmol/L [facility] Chloride 107 98 - 110 mmol/L [facility] CO2 24 22 - 29 mmol/L [facility] Anion Gap 10 5 - 13 mmol/L [facility] Comment:Anion gap calculatio n does not include potassium (K+) value. BUN 17 7 - 25 mg/dL [facility] Creatinine 1.20 0.50 - 1.20 mg/dL [facility] Glucose 125(H) 71 - 99 mg/dL [facility] Comment:Reference range (71- 99 mg/dL) refers only to fasting samples, and does not apply to non-fasting samples. eGFR CKD-EPI 2020 48 See Note [facility] Comment: eGFR calculated with 2020 CKD-EPI equation using creatinine, patient's age and gender. Other factors, especially muscle mass, may affect accuracy and need to be considered. Patient values should be interpreted as a trend. The reference interval is >60 mL/min/1.73m2. Calcium 10.3 8.5 - 10.5 mg/dL [facility] BUN/Creatinine Ratio 14 [facility] Serum 01/24/2023 2:32 PM EDT 01/24/2023 5:54 PM EDT us Lexi SUAREZ CHEMISTRY ORDERABLES Final Resu lt [facility] [address] from Last 3 Months or Most Recently Relevant to Health Maintenance Insurance MEDICARE PART A [facility] [address] [address] [place] [address] ANTH Advance Directives For more information, please contact: [phone] * Full Code (Latest Code Status on File) Date Activated Date Inactivated Comments 01/30/2023 9:13 AM No automated chest compression devices for [facility] Patients Care Teams Interior Block Wirer Relationship Specialty Start Date End Date David Vazquez [address] [place] [id number] PCP - General 01/24/23
--- OUTSIDE RECORDS SUMMARY | 2024-10-15 08:55 | XMS_ITS | Encounter Summary ---
Author Organization Healthcare Address [address] [place] [address] Care Team Providers Care Senior Portfolio Analyst Name Role Phone Jevon Vazquez MD Primary Care Provider [phone] Encounter Details Date Type Department Care Team [...] Hematology/BMT and Cellular Therapy Program [address] [address] 10/29/2024 1:30 PM EDT Office Visit [facility] Hematology/BMT and Cellular Therapy Program [address] [address] Zonia Hoffman, CHANNEL INSTALLER 800 [facility] [address] [place] [address] 10/29/2024 3:00 PM EDT Appointment [facility] [address] [place] [address] 10/30/2024 3:00 PM EDT Appointment [facility] 2 [address] [place] [address] 10/31/2024 3:00 PM EDT Appointment [facility] [address] [place] [address] 11/01/2024 3:00 PM EDT Appointment [facility] [address] [place] [address] 11/02/2024 3:00 PM EDT Appointment [facility] [address] [place] [address] 2024 3:00 PM EDT Appointment [facility] [address] [place] [address] 11/04/2024 3:00 PM EDT Appointment [facility] [address] [place] [address] documented as of this encounter Visit Diagnoses Not on filedocumented in this encounter Additional Health Concerns Assessment Noted Time A fall risk assessment has been complete d for the patient 07/30/2024 8:29 AM EDT A Body Mass Index follow-up plan has been documented for the patient 05/28/2024 1:52 PM EST documented as of this encounter Care Teams Senior Portfolio Analyst Relationship Specialty Start Date End Date Jevon Vazquez MD [address] [place] [address] #1 #1 [place] [address] PCP - General 03/23/22 documented as of this encounter
--- OUTSIDE RECORDS SUMMARY | 2024-10-15 08:55 | XMS_ITS | Encounter Summary ---
Author Organization Healthcare Address [address] [place] [address] Care Team Providers Care Customs Verifier Name Role Phone Jevon Vazquez MD Primary Care Provider [phone] Encounter Details Date Type Department Care Team ([facility] st Contact Info) Description 08/18/2024 Telephone [facility] Hematology/BMT and Cellular Therapy Program [address] [address] Romana Gorman, AUTOMOTIVE MANAGER 800 [facility] [address] [place] [address] Social History Tobacco Use Types Packs/Day Years [...] to her levels being low Callback number: [phone] documented in this encounter Plan of Treatment Upcoming Encounters Date Type Department Care Team (Late st Contact Info) Description 10/29/2024 1:00 PM EDT Clinical Support [facility] Hematology/BMT and Cellular Therapy Program [address] [address] 10/29/2024 1:30 PM EDT Office Visit [facility] Hematology/BMT and Cellular Therapy Program [address] [address] Zonia Hoffman, AUTOMOTIVE MANAGER 800 [facility] [address] [place] [address] 10/29/2024 3:00 PM EDT Appointment [facility] 2 [address] [place] [address] 10/30/2024 3:00 PM EDT Appointment [facility] 2 [address] [place] [address] 10/31/2024 3:00 PM EDT Appointment [facility] 2 [address] [place] [address] 11/01/2024 3:00 PM EDT Appointment [facility] 2 [address] [place] [address] 11/02/2024 3:00 PM EDT Appointment [facility] 2 [address] [place] [address] 2024 3:00 PM EDT Appointment [facility] 2 [address] [place] [address] 11/04/2024 3:00 PM EDT Appointment [facility] 2 [address] [place] [address] documented as of this encounter Visit Diagnoses Not on filedocumented in this encounter Additional Health Concerns Assessment Noted Time A fall risk assessment has been complete d for the patient 07/30/2024 8:29 AM EDT A Body Mass Index follow-up plan has been documented for the patient 05/28/2024 1:52 PM EST documented as of this encounter Care Teams Customs Verifier Relationship Specialty Start Date End Date Jevon Vazquez MD [address] [place] [address] #1 #1 [place] [address] PCP - General 03/23/22 documented as of this encounter
--- OUTSIDE RECORDS SUMMARY | 2024-10-15 08:55 | XMS_ITS | Encounter Summary ---
Author Organization Healthcare Address [address] [place] [address] Care Team Providers Care Shingle Cutter Name Role Phone Jevon Vazquez MD Primary Care Provider [phone] Encounter Details Date Type Department Care Team ([facility] st Contact Info) Description 09/01/2024 Telephone [facility] Hematology/BMT and Cellular Therapy Program [address] [address] Zonia Hoffman, CARAMEL CANDY MAKER 800 [facility] [address] [place] [phone] Social History Tobacco Use Types Packs/Day Years [...] told her to cancel. Please confirm Callback number:[phone] documented in this encounter Plan of Treatment Upcoming Encounters Date Type Department Care Team (Late st Contact Info) Description 10/29/2024 1:00 PM EDT Clinical Support [facility] Hematology/BMT and Cellular Therapy Program [address] [address] 10/29/2024 1:30 PM EDT Office Visit [facility] Hematology/BMT and Cellular Therapy Program [address] [address] Zonia Hoffman, CARAMEL CANDY MAKER 800 [facility] [address] [place] [address] 10/29/2024 3:00 PM EDT Appointment [facility] 2 [address] [place] [address] 10/30/2024 3:00 PM EDT Appointment [facility] 2 [address] [place] [address] 10/31/2024 3:00 PM EDT Appointment [facility] 2 [address] [place] [address] 11/01/2024 3:00 PM EDT Appointment [facility] 2 [address] [place] [address] 11/02/2024 3:00 PM EDT Appointment [facility] 2 [address] [place] [address] 2024 3:00 PM EDT Appointment [facility] 2 [address] [place] [address] 11/04/2024 3:00 PM EDT Appointment [facility] 2 [address] [place] [address] documented as of this encounter Visit Diagnoses Not on filedocumented in this encounter Additional Health Concerns Assessment Noted Time A fall risk assessment has been complete d for the patient 07/30/2024 8:29 AM EDT A Body Mass Index follow-up plan has been documented for the patient 05/28/2024 1:52 PM EST documented as of this encounter Care Teams Shingle Cutter Relationship Specialty Start Date End Date Jevon Vazquez MD [address] [place] [address] #1 #1 [place] [address] PCP - General 03/23/22 documented as of this encounter
--- OUTSIDE RECORDS SUMMARY | 2024-10-15 08:55 | XMS_ITS | Encounter Summary ---
Author Organization [facility] Address [address] [place] [address] Care Team Providers Care Counter Control Operator Name Role Phone Jevon Vazquez MD Primary Care Provider [phone] Encounter Details Date Type Department Care Team ([facility] Contact Info) Description 09/19/2024 Telephone [facility] Hematology/BMT and Cellular Therapy Program [address] [place] [address] Romana Richmond RN [facility] Social History Tobacco [...] Encounters Date Type Department Care Team ([facility] Contact Info) Description 10/29/2024 1:00 PM EDT Clinical Support [facility] Hematology/BMT and Cellular Therapy Program [address] [place] [address] 10/29/2024 1:30 PM EDT Office Visit [facility] Hematology/BMT and Cellular Therapy Program 750 [facility] [address] [place] [address] Zonia Hoffman, FUNNEL SETTER [address] [facility] [address] [place] [address] 10/29/2024 3:00 PM EDT Appointment [facility] 2 [address] [place] [address] 10/30/2024 3:00 PM EDT Appointment [facility] 2 [address] [place] [address] 10/31/2024 3:00 PM EDT Appointment [facility] 2 [address] [place] [address] 11/01/2024 3:00 PM EDT Appointment [facility] 2 [address] [place] [address] 11/02/2024 3:00 PM EDT Appointment [facility] 2 [address] [place] [address] 2024 3:00 PM EDT Appointment [facility] 2 [address] [place] [address] 11/04/2024 3:00 PM EDT Appointment [facility] 2 [address] [place] [address] documented as of this encounter Visit Diagnoses Not on filedocumented in this encounter Additional Health Concerns Assessment Noted Time A fall risk assessment has been complete d for the patient 09/19/2024 8:38 AM EDT A Body Mass Index follow-up plan has been documented for the patient 05/28/2024 1:52 PM EST documented as of this encounter Care Teams Counter Control Operator Relationship Specialty Start Date End Date Jevon Vazquez MD [address] [place] [address] #1 #1 [place] [address] PCP - General 03/23/22 documented as of this encounter
--- OUTSIDE RECORDS SUMMARY | 2024-10-15 08:55 | XMS_ITS | Encounter Summary ---
Author Organization Healthcare Address [address] [place] [address] Care Team Providers Care Camera Assembler Name Role Phone Jevon Vazquez MD Primary Care Provider [phone] Encounter Details Date Type Department Care Team (Late Contact Info) Description 09/30/2024 Telephone [facility] Hematology/BMT and Cellular Therapy Program [address] [place] [address] Zoraida Good, RN [facility] Social History Tobacco [...] Department Care Team (Late Contact Info) Description 10/29/2024 1:00 PM EDT Clinical Support [facility] Hematology/BMT and Cellular Therapy Program [address] [place] [address] 10/29/2024 1:30 PM EDT Office Visit [facility] Hematology/BMT and Cellular Therapy Program 750 [facility] [place] [place] [address] Zonia Hoffman, AIR INTELLIGENCE OFFICER 800 [facility] [address] [place] [phone] 10/29/2024 3:00 PM EDT Appointment [facility] 2 [address] [place] [address] 10/30/2024 3:00 PM EDT Appointment [facility] 2 [address] [place] [address] 10/31/2024 3:00 PM EDT Appointment [facility] 2 [address] [place] [address] 11/01/2024 3:00 PM EDT Appointment [facility] 2 [address] [place] [address] 11/02/2024 3:00 PM EDT Appointment [facility] 2 [address] [place] [address] 2024 3:00 PM EDT Appointment [facility] 2 [address] [place] [address] 11/04/2024 3:00 PM EDT Appointment [facility] 2 [address] [place] [address] documented as of this encounter Visit Diagnoses Not on filedocumented in this encounter Additional Health Concerns Assessment Noted Time A fall risk assessment has been complete d for the patient 09/30/2024 9:33 AM EDT A Body Mass Index follow-up plan has been documented for the patient 05/28/2024 1:52 PM EST documented as of this encounter Care Teams Camera Assembler Relationship Specialty Start Date End Date Jevon Vazquez MD [address] [place] [address] #1 #1 [place] [address] PCP - General 03/23/22 documented as of this encounter
--- OUTSIDE RECORDS SUMMARY | 2024-10-15 08:55 | XMS_ITS | Encounter Summary ---
Author Organization Healthcare Address [address] [place] [address] Care Team Providers Care Stonemason Helper Name Role Phone Jevon Vazquez MD Primary Care Provider [phone] Encounter Details Date Type Department Care Team [...] Hematology/BMT and Cellular Therapy Program [address] [address] 10/29/2024 1:30 PM EDT Office Visit [facility] Hematology/BMT and Cellular Therapy Program [address] [address] Zonia Hoffman, ASSISTANT COUNTY ENGINEER 800 [facility] [address] [place] [address] 10/29/2024 3:00 PM EDT Appointment [facility] 2 [address] [place] [address] 10/30/2024 3:00 PM EDT Appointment [facility] 2 [address] [place] [address] 10/31/2024 3:00 PM EDT Appointment [facility] 2 [address] [place] [address] 11/01/2024 3:00 PM EDT Appointment [facility] 2 [address] [place] [address] 11/02/2024 3:00 PM EDT Appointment [facility] 2 [address] [place] [address] 2024 3:00 PM EDT Appointment [facility] 2 [address] [place] [address] 11/04/2024 3:00 PM EDT Appointment [facility] 2 [address] [place] [address] documented as of this encounter Visit Diagnoses Not on filedocumented in this encounter Additional Health Concerns Assessment Noted Time A fall risk assessment has been complete d for the patient 07/30/2024 8:29 AM EDT A Body Mass Index follow-up plan has been documented for the patient 05/28/2024 1:52 PM EST documented as of this encounter Care Teams Stonemason Helper Relationship Specialty Start Date End Date Jevon Vazquez MD [address] [place] [address] #1 #1 [place] [address] PCP - General 03/23/22 documented as of this encounter
--- OUTSIDE RECORDS SUMMARY | 2024-10-15 08:55 | XMS_ITS | Encounter Summary ---
Author Organization Healthcare Address [address] [place] [address] Care Team Providers Care Optical Goods Drill Operator Name Role Phone Jevon Vazquez MD Primary Care Provider [phone] Encounter Details Date Type Department Care Team [...] Hematology/BMT and Cellular Therapy Program [address] [address] 10/29/2024 1:30 PM EDT Office Visit [facility] Hematology/BMT and Cellular Therapy Program [address] [address] Zonia Hoffman, SUPERVISOR POLICY CHANGE CLERKS 800 [facility] [address] [place] [address] 10/29/2024 3:00 PM EDT Appointment [facility] 2 [address] [place] [address] 10/30/2024 3:00 PM EDT Appointment [facility] 2 [address] [place] [address] 10/31/2024 3:00 PM EDT Appointment [facility] 2 [address] [place] [address] 11/01/2024 3:00 PM EDT Appointment [facility] 2 [address] [place] [address] 11/02/2024 3:00 PM EDT Appointment [facility] 2 [address] [place] [address] 2024 3:00 PM EDT Appointment [facility] 2 [address] [place] [address] 11/04/2024 3:00 PM EDT Appointment [facility] 2 [address] [place] [address] documented as of this encounter Visit Diagnoses Not on filedocumented in this encounter Additional Health Concerns Assessment Noted Time A fall risk assessment has been complete d for the patient 07/30/2024 8:29 AM EDT A Body Mass Index follow-up plan has been documented for the patient 05/28/2024 1:52 PM EST documented as of this encounter Care Teams Optical Goods Drill Operator Relationship Specialty Start Date End Date Jevon Vazquez MD [address] [place] [address] #1 #1 [place] [address] PCP - General 03/23/22 documented as of this encounter
--- OUTSIDE RECORDS SUMMARY | 2024-10-15 08:55 | XMS_ITS | Encounter Summary ---
Author Organization Healthcare Address [address] [place] [address] Care Team Providers Care Forest Ranger Name Role Phone Jevon Vazquez MD Primary [...] Hematology/BMT and Cellular Therapy Program [address] [address] 10/29/2024 1:30 PM EDT Office Visit [facility] Hematology/BMT and Cellular Therapy Program [address] [address] Zonia Hoffman, DIABETES MANAGER 800 [facility] [address] [place] [address] 10/29/2024 3:00 PM EDT Appointment [facility] 2 [address] [place] [address] 10/30/2024 3:00 PM EDT Appointment [facility] 2 [address] [place] [address] 10/31/2024 3:00 PM EDT Appointment [facility] 2 [address] [place] [address] 11/01/2024 3:00 PM EDT Appointment [facility] 2 [address] [place] [address] 11/02/2024 3:00 PM EDT Appointment [facility] 2 [address] [place] [address] 2024 3:00 PM EDT Appointment [facility] 2 [address] [place] [address] 11/04/2024 3:00 PM EDT Appointment [facility] 2 [address] [place] [address] documented as of this encounter Visit Diagnoses Not on filedocumented in this encounter Additional Health Concerns Assessment Noted Time A fall risk assessment has been complete d for the patient 07/30/2024 8:29 AM EDT A Body Mass Index follow-up plan has been documented for the patient 05/28/2024 1:52 PM EST documented as of this encounter Care Teams Forest Ranger Relationship Specialty Start Date End Date Jevon Vazquez MD [address] [place] [address] #1 #1 [place] [address] PCP - General 03/23/22 documented as of this encounter
--- OUTSIDE RECORDS SUMMARY | 2024-10-15 08:55 | XMS_ITS | Encounter Summary ---
Author Organization Address [address] [place] [address] Care Team Providers Care Painter Helper Name Role Phone Jevon Vazquez MD Primary Care Provider [phone] Encounter Details Date Type Department Care Team ([facility] Contact Info) Description 09/15/2024 Telephone [facility] Hematology/BMT and Cellular Therapy Program [address] [phone] Zonia Hoffman, NUCLEAR UNIT OPERATOR 800 [facility] [address] [place] [address] Social History Tobacco Use Types Packs/Day Years [...] Hematology/BMT and Cellular Therapy Program [address] [phone] 10/29/2024 1:30 PM EDT Office Visit [facility] Hematology/BMT and Cellular Therapy Program [address] [phone] Zonia Hoffman, NUCLEAR UNIT OPERATOR 800 [facility] [address] [place] [address] 10/29/2024 3:00 PM EDT Appointment [facility] 2 [address] [place] [address] 10/30/2024 3:00 PM EDT Appointment [facility] 2 [address] [place] [address] 10/31/2024 3:00 PM EDT Appointment [facility] 2 [address] [place] [address] 11/01/2024 3:00 PM EDT Appointment [facility] 2 [address] [place] [address] 11/02/2024 3:00 PM EDT Appointment [facility] 2 [address] [place] [address] 2024 3:00 PM EDT Appointment [facility] 2 [address] [place] [address] 11/04/2024 3:00 PM EDT Appointment [facility] 2 [address] [place] [address] documented as of this encounter Visit Diagnoses Not on filedocumented in this encounter Additional Health Concerns Assessment Noted Time A fall risk assessment has been complete d for the patient 07/30/2024 8:29 AM EDT A Body Mass Index follow-up plan has been documented for the patient 05/28/2024 1:52 PM EST documented as of this encounter Care Teams Painter Helper Relationship Specialty Start Date End Date Jevon Vazquez MD [address] [place] [address] #1 #1 [place] [address] PCP - General 03/23/22 documented as of this encounter
--- OUTSIDE RECORDS SUMMARY | 2024-10-15 08:56 | XMS_ITS | Encounter Summary ---
Author Organization Healthcare Address [address] [place] [address] Care Team Providers Care Ledger Poster Name Role Phone Jevon Vazquez MD Primary Care Provider [phone] Encounter Details Date Type Department Care Team [...] Hematology/BMT and Cellular Therapy Program [address] [address] 10/29/2024 1:30 PM EDT Office Visit [facility] Hematology/BMT and Cellular Therapy Program [address] [address] Zonia Hoffman, NEW CAR SALESPERSON 800 [facility] [address] [place] [address] 10/29/2024 3:00 PM EDT Appointment [facility] [address] [place] [address] 10/30/2024 3:00 PM EDT Appointment [facility] 2 [address] [place] [address] 10/31/2024 3:00 PM EDT Appointment [facility] 2 [address] [place] [address] 11/01/2024 3:00 PM EDT Appointment [facility] 2 [address] [place] [address] 11/02/2024 3:00 PM EDT Appointment [facility] 2 [address] [place] [address] 2024 3:00 PM EDT Appointment [facility] 2 [address] [place] [address] 11/04/2024 3:00 PM EDT Appointment [facility] 2 [address] [place] [address] documented as of this encounter Visit Diagnoses Not on filedocumented in this encounter Additional Health Concerns Assessment Noted Time A fall risk assessment has been complete d for the patient 09/30/2024 9:33 AM EDT A Body Mass Index follow-up plan has been documented for the patient 05/28/2024 1:52 PM EST documented as of this encounter Care Teams Ledger Poster Relationship Specialty Start Date End Date Jevon Vazquez MD [address] [place] [address] #1 #1 [place] [address] PCP - General 03/23/22 documented as of this encounter
--- OUTSIDE RECORDS SUMMARY | 2024-10-15 08:56 | XMS_ITS | Encounter Summary ---
Author Organization Healthcare Address [address] [place] [address] Care Team Providers Care Executive Chef Name Role Phone Jevon Vazquez MD Primary Care Provider [phone] Encounter Details Date Type Department Care Team [...] Hematology/BMT and Cellular Therapy Program [address] [address] 10/29/2024 1:30 PM EDT Office Visit [facility] Hematology/BMT and Cellular Therapy Program [address] [address] Zonia Hoffman, ATTRACTION ATTENDANT 800 [facility] [address] [place] [address] 10/29/2024 3:00 PM EDT Appointment [facility] 2 [address] [place] [address] 10/30/2024 3:00 PM EDT Appointment [facility] 2 [address] [place] [address] 10/31/2024 3:00 PM EDT Appointment [facility] 2 [address] [place] [address] 11/01/2024 3:00 PM EDT Appointment [facility] 2 [address] [place] [address] 11/02/2024 3:00 PM EDT Appointment [facility] 2 [address] [place] [address] 2024 3:00 PM EDT Appointment [facility] 2 [address] [place] [address] 11/04/2024 3:00 PM EDT Appointment [facility] 2 [address] [place] [address] documented as of this encounter Visit Diagnoses Not on filedocumented in this encounter Additional Health Concerns Assessment Noted Time A fall risk assessment has been complete d for the patient 09/30/2024 9:33 AM EDT A Body Mass Index follow-up plan has been documented for the patient 05/28/2024 1:52 PM EST documented as of this encounter Care Teams Executive Chef Relationship Specialty Start Date End Date Jevon Vazquez MD [address] [place] [address] #1 [address]1 [place] [address] PCP - General 03/23/22 documented as of this encounter
--- OUTSIDE RECORDS SUMMARY | 2024-10-15 08:56 | XMS_ITS | Clinical Summary ---
Author Organization [facility] Address [address] [place] [address] Phone Care Team Providers Care Instructor Bridge Name Role Phone Jevon Vazquez MD Primary Care Provider [phone] Allergies Active Allergy Reactions Criticality Noted Date [...] L4-5 LAMINECTOMY; Surgeon: Ivan Bartholomew MD; Location: [facility] MAIN OR; Service: Spine Medical History [...] season) 2023 02/18/2021, 07/10/2020, 06/12/2020 Influenza Vaccine (#1) 2024 3, 02/10/2021, 01/23/2020, Additional history exists DTaP/TDaP/Td (2 [...] 5.6 % 11/14/2022 2:57 PM EDT [facility] [employer] [employer] Est. Avg Glucose 148 mg/dL 11/14/2022 2:57 PM EDT [employer], [facility] Blood VENOUS BLOOD / Unknown Venipuncture / Unknown 11/11/2022 3:46 PM EDT 11/11/2022 3:55 PM EDT Narrative [facility] - 11/14/2022 2:57 PM [...] Maloney DO CHEMISTRY ORDERABLES Final R esult [facility] [address] [facility] , [place] [address] * (ABNORMAL) BASIC METABOLIC PANEL (11/11/2022 3:46 PM EDT) Sodium 136 136 - 145 mmol/L 11/11/2022 4:11 PM EDT [facility] Potassium 3.8 3.5 - 5.0 mmol/L 11/11/2022 4:11 PM EDT [facility] Chloride 102 98 - 107 mmol/L 11/11/2022 4:11 PM EDT [facility] Total CO2 24 22 - 29 mmol/L 11/11/2022 4:11 PM EDT [facility] Anion Gap 10 7 - 16 mmol/L 11/11/2022 4:11 PM EDT [facility] Calcium 10.1 8.8 - 10.4 mg/dL 11/11/2022 4:11 PM EDT [facility] Glucose Lvl 147(H) 82 - 100 mg/dL 11/11/2022 4:11 PM EDT [facility] BUN 15 8 - 23 mg/dL 11/11/2022 4:11 PM EDT [facility] Creatinine 0.82 0.51 - 1.30 mg/dL 11/11/2022 4:11 PM EDT [facility] eGFR (CKD-EPIcr 2020) 76 >=60 mL/min/1.7 3 m2 11/11/2022 4:11 PM EDT [facility] Comment:Estimated GFR was ca lculated using the CKD-EPIcr (2020) equation refit without race. The equation is recommended by the National Kidney Foundation - [place] [employer] of Nephrology Task Force. Blood VENOUS BLOOD / Unknown Venipuncture / Unknown 11/11/2022 3:46 PM EDT 11/11/2022 3:54 PM EDT us Leona Hanna DO CHEMISTRY ORDERABLES Final Res ult [facility] [address] [place] [address] * DX BONE DENSITY AXIAL SKELETON (07/25/2022 9:14 AM EDT) Anatomical Region Laterality Modality Dexa Scan 07/25/2022 Narrative 07/25/2022 3:45 PM EDT Indication: The patient is a female age 65 or older who requires a bone density assessment. Study was performed on Biart 5. Bone Density: Region BMD T-score Z-score [...] Most Recently Relevant to Health Maintenance [place] [address] [place] [address] MEDICARE SUPPLEMENT MEDICARE [place] PART A AND B Member Subscriber Plan / Payer (Ef fective 2016-Present) Name:Ashly Hernández Member ID:[id number] Relation to Subscriber:Self Name:Ashly Hernández Subscriber ID:[id number] Payer ID:Not on file Group ID:Not on file Type:Not on file Address: [address] MEDICARE SUPPLEMENT MEDICARE [place] PART A & [place] [place] [phone] MEDICARE [place] PART A AND B Member Subscriber Plan / Payer (Ef fective 2016-Present) Name:Ashly Hernández Member ID:[id number] Relation to Subscriber:Self Name:Ashly Hernández Subscriber ID:[id number] Payer ID:Not on file Group ID:Not on file Type:Not on file Address: [address] MEDICARE SUPPLEMENT [employer] MEDICARE [place] PART A AND B [address] MEDICARE SUPPLEMENT Advance Directives For more information, please contact: [phone] * Full Code (Latest Code Status on File) Date Activated Date Inactivated Comments 11/14/2022 6:53 PM 11/16/2022 7:37 PM * Full Code Date Activated Date Inactivated Comments 11/12/2022 5:17 AM 11/14/2022 6:47 PM Care Teams Instructor Bridge Relationship Specialty Start Date End Date Jevon Vazquez MD [address] [place] [address] PCP - General Family Medicine 11/10/22
--- OUTSIDE RECORDS SUMMARY | 2024-10-15 08:56 | XMS_ITS | Encounter Summary ---
Author Organization Healthcare Address [address] [place] [address] Care Team Providers Care Microeconomics Professor Name Role Phone Jevon Vazquez MD Primary Care Provider [phone] Encounter Details Date Type Department Care Team [...] Hematology/BMT and Cellular Therapy Program [address] [address] 10/29/2024 1:30 PM EDT Office Visit [facility] Hematology/BMT and Cellular Therapy Program [address] [address] Zonia Hoffman, DOPE DRY HOUSE OPERATOR 800 [facility] [address] [place] [address] 10/29/2024 3:00 PM EDT Appointment [facility] 2 [address] [place] [address] 10/30/2024 3:00 PM EDT Appointment [facility] 2 [address] [place] [address] 10/31/2024 3:00 PM EDT Appointment [facility] 2 [address] [place] [address] 11/01/2024 3:00 PM EDT Appointment [facility] 2 [address] [place] [address] 11/02/2024 3:00 PM EDT Appointment [facility] 2 [address] [place] [address] 2024 3:00 PM EDT Appointment [facility] 2 [address] [place] [address] 11/04/2024 3:00 PM EDT Appointment [facility] 2 [address] [place] [address] documented as of this encounter Visit Diagnoses Not on filedocumented in this encounter Additional Health Concerns Assessment Noted Time A fall risk assessment has been complete d for the patient 09/30/2024 9:33 AM EDT A Body Mass Index follow-up plan has been documented for the patient 05/28/2024 1:52 PM EST documented as of this encounter Care Teams Microeconomics Professor Relationship Specialty Start Date End Date Jevon Vazquez MD [address] [place] [address] #1 [address]1 [place] [address] PCP - General 03/23/22 documented as of this encounter
--- OUTSIDE RECORDS SUMMARY | 2024-10-15 08:56 | XMS_ITS | Encounter Summary ---
Author Organization Healthcare Address [address] [place] [address] Care Team Providers Care Soils Engineer Name Role Phone Jevon Vazquez MD Primary Care Provider [phone] Encounter Details Date Type Department Care Team [...] Hematology/BMT and Cellular Therapy Program [address] [address] 10/29/2024 1:30 PM EDT Office Visit [facility] Hematology/BMT and Cellular Therapy Program [address] [address] Zonia Hoffman, VP [employer]ATE[employer]IC [employer]NERSHIPS 800 [facility] [address] [place] [address] 10/29/2024 3:00 PM EDT Appointment [facility] 2 [address] [place] [address] 10/30/2024 3:00 PM EDT Appointment [facility] 2 [address] [place] [address] 10/31/2024 3:00 PM EDT Appointment [facility] 2 [address] [place] [address] 11/01/2024 3:00 PM EDT Appointment [facility] 2 [address] [place] [address] 11/02/2024 3:00 PM EDT Appointment [facility] 2 [address] [place] [address] 2024 3:00 PM EDT Appointment [facility] 2 [address] [place] [address] 11/04/2024 3:00 PM EDT Appointment [facility] 2 [address] [place] [address] documented as of this encounter Visit Diagnoses Not on filedocumented in this encounter Additional Health Concerns Assessment Noted Time A fall risk assessment has been complete d for the patient 09/19/2024 8:38 AM EDT A Body Mass Index follow-up plan has been documented for the patient 05/28/2024 1:52 PM EST documented as of this encounter Care Teams Soils Engineer Relationship Specialty Start Date End Date Jevon Vazquez MD [address] [place] [address] #1 [address]1 [place] [address] PCP - General 03/23/22 documented as of this encounter
--- OUTSIDE RECORDS SUMMARY | 2024-10-15 08:56 | XMS_ITS | Encounter Summary ---
Author Organization Healthcare Address [address] [place] [address] Care Team Providers Care Equipment Or Machinery Cleaner Name Role Phone Jevon Vazquez MD Primary Care Provider [phone] Encounter Details Date Type Department Care Team ([facility] st Contact Info) Description 07/15/2024 Telephone [facility] Hematology/BMT and Cellular Therapy Program [address] [address] Zonia Hoffman, LANDFILL GAS COLLECTION SYSTEM OPERATOR 800 [facility] [address] [place] [address] Social History Tobacco Use Types Packs/Day Years [...] questions and concerns * Telephone Encounter - Nses Fowler - 07/15/2024 2:16 PM EDT Patient Phone Message Reason for Call: Per PT call to [facility], fabiana Hoffman appt clarity, asking to have Jorge from clinical care team. Best contact number and optimal time of day to reach caller: [phone] Note: Please do not reply to this [...] Upcoming Encounters Date Type Department Care Team ([facility] st Contact Info) Description 10/29/2024 1:00 PM EDT Clinical Support [facility] Hematology/BMT and Cellular Therapy Program [address] [place] [address] 10/29/2024 1:30 PM EDT Office Visit [facility] Hematology/BMT and Cellular Therapy Program [address] [place] [address] Zonia Hoffman, LANDFILL GAS COLLECTION SYSTEM OPERATOR 800 [facility] [address] [place] [address] 10/29/2024 3:00 PM EDT Appointment [facility] 2 [address] [place] [address] 10/30/2024 3:00 PM EDT Appointment [facility] 2 [address] [place] [address] 10/31/2024 3:00 PM EDT Appointment [facility] 2 [address] [place] [address] 11/01/2024 3:00 PM EDT Appointment [facility] 2 [address] [place] [address] 11/02/2024 3:00 PM EDT Appointment [facility] 2 [address] [place] [address] 2024 3:00 PM EDT Appointment [facility] 2 [address] [place] [address] 11/04/2024 3:00 PM EDT Appointment [facility] 2 [address] [place] [address] documented as of this encounter Visit Diagnoses Not on filedocumented in this encounter Additional Health Concerns Assessment Noted Time A fall risk assessment has been complete d for the patient 06/18/2024 10:22 AM EST A Body Mass Index follow-up plan has been documented for the patient 05/28/2024 1:52 PM EST documented as of this encounter Care Teams Equipment Or Machinery Cleaner Relationship Specialty Start Date End Date Jevon Vazquez MD [address] [place] [address] #1 #1 [place] [address] PCP - General 03/23/22 documented as of this encounter
--- OUTSIDE RECORDS SUMMARY | 2024-10-15 08:56 | XMS_ITS | Encounter Summary ---
Author Organization Healthcare Address [address] [place] [address] Care Team Providers Care Mixing And Molding Machine Operator Name Role Phone Jevon Vazquez MD Primary Care Provider [phone] Encounter Details Date Type Department Care Team [...] Hematology/BMT and Cellular Therapy Program [address] [address] 10/29/2024 1:30 PM EDT Office Visit [facility] Hematology/BMT and Cellular Therapy Program [address] [address] Zonia Hoffman, BUSPERSON 800 [facility] [address] [place] [address] 10/29/2024 3:00 PM EDT Appointment [facility] 2 [address] [place] [address] 10/30/2024 3:00 PM EDT Appointment [facility] 2 [address] [place] [address] 10/31/2024 3:00 PM EDT Appointment [facility] 2 [address] [place] [address] 11/01/2024 3:00 PM EDT Appointment [facility] 2 [address] [place] [address] 11/02/2024 3:00 PM EDT Appointment [facility] 2 [address] [place] [address] 2024 3:00 PM EDT Appointment [facility] 2 [address] [place] [address] 11/04/2024 3:00 PM EDT Appointment [facility] 2 [address] [place] [address] documented as of this encounter Visit Diagnoses Not on filedocumented in this encounter Additional Health Concerns Assessment Noted Time A fall risk assessment has been complete d for the patient 09/19/2024 8:38 AM EDT A Body Mass Index follow-up plan has been documented for the patient 05/28/2024 1:52 PM EST documented as of this encounter Care Teams Mixing And Molding Machine Operator Relationship Specialty Start Date End Date Jevon Vazquez MD [address] [place] [address] #1 [address]1 [place] [address] PCP - General 03/23/22 documented as of this encounter
--- OUTSIDE RECORDS SUMMARY | 2024-10-15 08:56 | XMS_ITS | Encounter Summary ---
Author Organization Healthcare Address [address] [place] [address] Care Team Providers Care Probation Supervisor Name Role Phone Jevon Vazquez MD Primary Care Provider [phone] Encounter Details Date Type Department Care Team [...] Hematology/BMT and Cellular Therapy Program [address] [address] 10/29/2024 1:30 PM EDT Office Visit [facility] Hematology/BMT and Cellular Therapy Program [address] [address] Zonia Hoffman, BRIDGE REPAIRER 800 [facility] [address] [place] [address] 10/29/2024 3:00 PM EDT Appointment [facility] 2 [address] [place] [address] 10/30/2024 3:00 PM EDT Appointment [facility] 2 [address] [place] [address] 10/31/2024 3:00 PM EDT Appointment [facility] 2 [address] [place] [address] 11/01/2024 3:00 PM EDT Appointment [facility] 2 [address] [place] [address] 11/02/2024 3:00 PM EDT Appointment [facility] 2 [address] [place] [address] 2024 3:00 PM EDT Appointment [facility] 2 [address] [place] [address] 11/04/2024 3:00 PM EDT Appointment [facility] 2 [address] [place] [address] documented as of this encounter Visit Diagnoses Not on filedocumented in this encounter Additional Health Concerns Assessment Noted Time A fall risk assessment has been complete d for the patient 09/19/2024 8:38 AM EDT A Body Mass Index follow-up plan has been documented for the patient 05/28/2024 1:52 PM EST documented as of this encounter Care Teams Probation Supervisor Relationship Specialty Start Date End Date Jevon Vazquez MD [address] [place] [address] #1 [address]1 [place] [address] PCP - General 03/23/22 documented as of this encounter
--- OUTSIDE RECORDS SUMMARY | 2024-10-15 08:56 | XMS_ITS | Encounter Summary ---
Author Organization Healthcare Address [address] [place] [address] Care Team Providers Care Grey Tender Name Role Phone Jevon Vazquez MD Primary Care Provider [phone] Encounter Details Date Type Department Care Team [...] Hematology/BMT and Cellular Therapy Program [address] [address] 10/29/2024 1:30 PM EDT Office Visit [facility] Hematology/BMT and Cellular Therapy Program [address] [address] Zonia Hoffman, DIRECTOR BUSINESS 800 [facility] [address] [place] [address] 10/29/2024 3:00 PM EDT Appointment [facility] 2 [address] [place] [address] 10/30/2024 3:00 PM EDT Appointment [facility] 2 [address] [place] [address] 10/31/2024 3:00 PM EDT Appointment [facility] 2 [address] [place] [address] 11/01/2024 3:00 PM EDT Appointment [facility] 2 [address] [place] [address] 11/02/2024 3:00 PM EDT Appointment [facility] 2 [address] [place] [address] 2024 3:00 PM EDT Appointment [facility] 2 [address] [place] [address] 11/04/2024 3:00 PM EDT Appointment [facility] 2 [address] [place] [address] documented as of this encounter Visit Diagnoses Not on filedocumented in this encounter Additional Health Concerns Assessment Noted Time A fall risk assessment has been complete d for the patient 09/19/2024 8:38 AM EDT A Body Mass Index follow-up plan has been documented for the patient 05/28/2024 1:52 PM EST documented as of this encounter Care Teams Grey Tender Relationship Specialty Start Date End Date Jevon Vazquez MD [address] [place] [address] #1 [address]1 [place] [address] PCP - General 03/23/22 documented as of this encounter
--- OUTSIDE RECORDS SUMMARY | 2024-10-15 08:56 | XMS_ITS | Encounter Summary ---
Author Organization [facility] Address [address] 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 [...] Hematology/BMT and Cellular Therapy Program [address] [address] 10/29/2024 1:30 PM EDT Office Visit [facility] Hematology/BMT and Cellular Therapy Program [address] [address] Zonia Hoffman, WELCOME DESK AGENT 800 [facility] [address] [place] [address] 10/29/2024 3:00 PM EDT Appointment [facility] 2 [address] [place] [address] 10/30/2024 3:00 PM EDT Appointment [facility] 2 [address] [place] [address] 10/31/2024 3:00 PM EDT Appointment [facility] 2 [address] [place] [address] 11/01/2024 3:00 PM EDT Appointment [facility] 2 [address] [place] [address] 11/02/2024 3:00 PM EDT Appointment [facility] 2 [address] [place] [address] 2024 3:00 PM EDT Appointment [facility] 2 [address] [place] [address] 11/04/2024 3:00 PM EDT Appointment [facility] 2 [address] [place] [address] Scheduled Orders Name Type Priority Associated Diagnoses [...] documented as of this encounter Care Teams Safe Expert Relationship Specialty Start Date End Date Jevon Vazquez MD [address] [place] [address] #1 #1 [place] [address] PCP - General 03/23/22 documented as of this encounter
[2024-10-15 09:08] LABS: Hematocrit 25.2 % (37.0-47.0); Hemoglobin 8.7 g/dL (12.2-16.2); Immature Granulocytes % 0.4 %; Mean Corpuscular HGB Conc 34.5 g/dL (31.8-35.4); Mean Corpuscular Hemoglobin 38.2 pg (27.0-31.2); Mean Corpuscular Volume 110.5 fl (81-99); Nucleated Red Blood Cells % 0 %; Red Blood Count 2.28 M/mm3 (4.20-5.40); Red Cell Distribution Width-SD 71.0 fL; White Blood Count 2.3 K/mm3 (4.8-10.8)
[2024-10-15 09:22] LABS: Albumin Level 3.8 g/dl (3.5-5.0); Albumin/Globulin Ratio 1.7 (1.1-1.8); Alkaline Phosphatase 40 U/L (38-126); Bilirubin,Total 0.3 mg/dl (0.2-1.3); Carbon Dioxide 25 mmol/L (22.0-30.0); Chloride 104 mmol/L (98-107); Creatinine,Serum 0.90 mg/dl (0.52-1.04); Estimated Glomerular Filt Rate 61 ml/min (>60); GFR (African American) 74 ML/MIN (>60); Globulin 2.2 g/dL (1.3-3.2); Potassium 3.8 mmoL/L (3.5-5.1); Total Protein,Serum 6.0 g/dl (6.3-8.2)
[2024-10-15] MEDS: SODIUM CHLORIDE 0.9% 10ML FLUSH SYRINGE 10 ML IV (09:25)
[2024-10-15 09:37] LABS: Alanine Aminotransferase 14 U/L (12-78); Anion Gap 10.8 mEq/L (5-15); Aspartate Amino Transferase 38 U/L (14-36); Blood Urea Nitrogen 29 mg/dl (7-17); Calcium 9.9 mg/dl (8.4-10.2); Glucose 130 mg/dl (74-100); Sodium 136 mmol/L (136-145)
[2024-10-15 09:47] LABS: Platelet Count 14 K/mm3 (142-424)
== END 2024-10-15 09:20 | disposition home or self-care (01) ==
LOC: INF 08:50
PROVIDERS: PCP Family Medicine; Visit Provider Internal Medicine Medical Oncology
DX: C92.00 Acute myeloblastic leukemia, not having achieved remission (principal)
CPT/HCPCS: 36591; 80053; 85025; J1642

== ENCOUNTER 2024-10-20 08:57 | Outpatient (CLI) | payer MEDICARE, BC, SELFPAY ==
--- OUTSIDE RECORDS SUMMARY | 2024-09-19 07:30 | XMS_ITS | Encounter Summary ---
Author Organization [facility] Address [address] [place] [address] Care Team Providers Care Trim Carpenter Name Role Phone Jevon Vazquez MD Primary Care Provider [phone] Reason for Visit * Reason Comments Nurse Visit Encounter Details Date Type Department Care Team ([facility] Contact Info) Description 09/19/2024 7:30 AM EDT Clinical Support [facility] Hematology/BMT and Cellular Therapy Program [address] [phone] Social History Tobacco Use Types Packs/Day Years [...] Upcoming Encounters Date Type Department Care Team ([facility] Contact Info) Description 10/29/2024 1:00 PM EDT Clinical Support [facility] Hematology/BMT and Cellular Therapy Program [address] [phone] 10/29/2024 1:30 PM EDT Office Visit [facility] Hematology/BMT and Cellular Therapy Program [address] [phone] Zonia Hoffman, SECURITY COMPLIANCE SPECIALIST 800 [facility] [address] [place] [address] 10/29/2024 3:00 PM EDT Appointment [facility] 2 [address] [place] [address] 10/30/2024 3:00 PM EDT Appointment [facility] 2 [address] [place] [address] 10/31/2024 3:00 PM EDT Appointment [facility] 2 [address] [place] [address] 11/01/2024 3:00 PM EDT Appointment [facility] 2 [address] [place] [address] 11/02/2024 3:00 PM EDT Appointment [facility] 2 [address] [place] [address] 2024 3:00 PM EDT Appointment [facility] 2 [address] [place] [address] 11/04/2024 3:00 PM EDT Appointment [facility] 2 [address] [place] [address] documented as of this encounter Visit Diagnoses Not on filedocumented in this encounter Additional Health Concerns Assessment Noted Time A fall risk assessment has been complete d for the patient 09/19/2024 8:38 AM EDT A Body Mass Index follow-up plan has been documented for the patient 05/28/2024 1:52 PM EST documented as of this encounter Care Teams Trim Carpenter Relationship Specialty Start Date End Date Jevon Vazquez MD [address] [place] [address] #1 #1 [place] [address] PCP - General 03/23/22 documented as of this encounter
--- OUTSIDE RECORDS SUMMARY | 2024-09-19 09:30 | XMS_ITS | Encounter Summary ---
Author Organization Healthcare Address [address] [place] [address] Care Team Providers Care Mechanic/Welder Name Role Phone Jevon Vazquez MD Primary Care Provider [phone] Reason for Visit * Reason Comments Follow-up Encounter Details Date Type Department Care Team (Latest Contact Info) Description 09/19/2024 9:30 AM EDT Clinical Support [facility] Cancer Acute Treatment Clinic [address] [place] [address] Acute myeloid leukemia not having achieved remission [...] [facility] Hematology/BMT and Cellular Therapy Program [address] [place] [address] 10/29/2024 1:30 PM EDT Office Visit [facility] Hematology/BMT and Cellular Therapy Program [address] [address] Zonia Hoffman, HVAC R TECH 800 [facility] [address] [place] [address] 10/29/2024 3:00 PM EDT Appointment [facility] 2 [address] [place] [address] 10/30/2024 3:00 PM EDT Appointment [facility] 2 [address] [place] [address] 10/31/2024 3:00 PM EDT Appointment [facility] 2 [address] [place] [address] 11/01/2024 3:00 PM EDT Appointment [facility] 2 [address] [place] [address] 11/02/2024 3:00 PM EDT Appointment [facility] Infusion Clinic 2 [address] [place] [address] 2024 3:00 PM EDT Appointment [facility] Infusion Clinic 2 [address] [place] [address] 11/04/2024 3:00 PM EDT Appointment [facility] Infusion Clinic 2 [address] [place] [address] documented as of this encounter Procedures Procedure Name Priority Date/Time Associated Diagnosis Comments PLATELET COUNT, BLOOD STAT 09/19/2024 10:04 AM EDT PREPARE PLATELETS Routine 09/19/2024 9:0 8 AM EDT documented in this encounter Results * (ABNORMAL) Platelet count (09/19/2024 10:04 AM EDT) Platelet Count 61(L) 155 - 369 10*3/uL LAB HEMATOLOGY METHOD 09/19/2024 10:19 AM EDT [facility] Blood Blood sample taken from central line / Unknown (Port) Long-term Catheter / Unknown 09/19/2024 10:04 AM EDT 09/19/2024 10:18 AM EDT us New Mckinney MD LAB BLOOD ORDERABLES Final Re sult [facility] [address] [place] [address] * Transfuse platelets, Irradiated (09/19/2024 10:02 AM EDT) us Lexi Ferraro APRN BLOOD TRANSFUSION ORDERABL ES Final Result * Prepare Leukocyte Reduced Platelets (09/19/2024 9:08 AM EDT) Product Code [id number] CH BLOO D BANK Dispense Status Transfused BLOOD BANK Blood Expiration Date [id number] BLOOD BANK Unit Number [id number] CH B LOOD BANK Product Blood Type 6200 BLOOD BANK Blood Type A+ BLOOD BANK us Provider Not In System BLOOD BANK PRODUCT ORD ERABLES Final Result BLOOD BANK [address] [place] [address], documented in this encounter Visit Diagnoses Diagnosis [...] documented as of this encounter Care Teams Mechanic/Welder Relationship Specialty Start Date End Date Jevon Vazquez MD [address] [place] [address] #1 [address]1 [place] [address] PCP - General 03/23/22 documented as of this encounter
--- OUTSIDE RECORDS SUMMARY | 2024-09-19 12:00 | XMS_ITS | Encounter Summary ---
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) Procedures Leukemia/Lymphoma - Immunophenotyping by Flow Cytometry New Mckinney MD 800 [facility] Cancer [address] [address] Phone: tel: fax: Referral ID Status Reason Start Date Expiration Date V isits Requested Visits Authorized [id number] Authorized 09/11/2024 03/13/2026 1 1 Encounter Details Date Type Department Care Team (Latest Contact Info) Description 09/19/2024 12:00 PM EDT Procedure Visit [facility] Hematology/BMT and Cellular Therapy Program [address] [address] Lexi Ferraro, RODDY 800 [facility] Cancer [address] [address] Acute myeloid leukemia not having [...] to surronding structures. Alternatives discussed: Delayed treatment [place] protocol: Procedure explained and questions answered to [...] Upcoming Encounters Date Type Department Care Team ([facility] st Contact Info) Description 10/29/2024 1:00 PM EDT Clinical Support [facility] Hematology/BMT and Cellular Therapy Program [address] [address] 10/29/2024 1:30 PM EDT Office Visit [facility] Hematology/BMT and Cellular Therapy Program [address] [address] Zonia Hoffman APRN 800 [facility] [address] [place] [phone] 10/29/2024 3:00 PM EDT Appointment [facility] Infusion Clinic [address] [place] [address] 10/30/2024 3:00 PM EDT Appointment [facility] Infusion Clinic [address] [place] [address] 10/31/2024 3:00 PM EDT Appointment [facility] Infusion Clinic [address] [place] [address] 11/01/2024 3:00 PM EDT Appointment [facility] [address] [place] [address] 11/02/2024 3:00 PM EDT Appointment [facility] [address] [place] [address] 2024 3:00 PM EDT Appointment [facility] [address] [place] [address] 11/04/2024 3:00 PM EDT Appointment [facility] [address] [place] [address] documented as of this encounter Procedures Procedure [...] to surronding structures. Alternatives discussed: Delayed treatment Parks protocol: Procedure explained and questions answered to [...] Type Bone Marrow 09/24/2024 2:37 PM EDT [facility] Clinical Indication Myelodysplastic Syndrome 09/24/2024 2:37 PM EDT [facility] Specimen Adequacy Adequate 06/11/2 025 2:37 PM EDT [facility] Chromosome Analysis Result Giemsa-banded metaphase cells from unstimulated bone marrow cultures showed a 46,XX[20] chromosome pattern. 09/24/2024 2:37 PM EDT [facility] Interpretation Normal female chromosome analysis. No clonal abnormalities were detected at current resolution. Clinical correlation is recommended. # cells counted = 20 # cells analyzed = 20 # cells karyotyped = 2 Band resolution: 450-525 09/24/2024 2:37 PM EDT [facility] Pathologist Signature Reviewed by: Corey Tejada 09/24/2024 2:37 PM EDT [facility] Bone Marrow Non-blood Collection / Unknown 09/19/2024 7:29 AM EDT 09/19/2024 12:35 PM EDT us New Mckinney MD LAB CYTOGENETICS ORDERABLES F inal Result [facility] [address] [place] [address] * Myeloid Focused Panel, 50 gene (09/19/2024 7:29 AM EDT) Interpretation The following two (2) genes, TP53 and DNMT3A, with persistent variants have been detected in this bone marrow specimen. The variant, p.[id number], in TP53 gene and the variant, p.[id number], in the RUNX 1 gene are not detectable at current cutoff and coverage established in this lab. Gene: TP53 Mutation: c.814G>A; p.Xko482Teg Allele Frequency (%): 37% (45% Dec 2023) ID: [id number] Gene: DNMT3A Mutation: c.1522delC; p.Auz337VfslqYge20 3 Allele Frequency (%): 36% (48% Dec 2023) Additional Details on Mutation Identified: Gene Transcript Genome Chrom Coordinate RefVar DNMT3A NM_[id number] Hg19 2 [id number] delC TP53 NM_000546.5 Hg19 17 [id number] G>A 09/29/2024 4:05 PM EDT [facility] Methodology The following 50 genes were [...] then sequenced on the Illumina NextSeq 2000 ([employer], [place]). A custom bioinformatics pipeline aligns [...] of hematologic malignancies. 09/29/2024 4:05 PM EDT [facility] Disclaimer This test was developed and [...] clinical laboratory testing. 09/29/2024 4:05 PM EDT [facility] Pathologist Signature Reviewed by: Corey Tejada 09/29/2024 4:05 PM EDT [facility] Bone Marrow Specimen from bone marrow obtained by aspiration / Unknown Non-blood Collection / Unknown 09/19/2024 7:29 AM EDT 09/19/2024 12:03 PM EDT us New Mckinney MD LAB MOLECULAR DIAGNOSTICS ORD ERABLES Final Result [facility] [place] [address], * Leukemia/Lymphoma - Immunophenotyping by Flow Cytometry (09/19/2024 7:29 AM EDT) Clinical Indication AML 09/22/2024 10:29 AM EDT [facility] Flow Cytometry Interpretation A. BONE MARROW FOR FLOW CYTOMETRY: - MIXED MARROW ELEMENTS WITH NO EVIDENCE OF INCREASED BLASTS OR ABNORMAL LYMPHOID POPULATIONS, SEE COMMENT. 09/22/2024 10:29 AM EDT [facility] Comments CD45/side scatter analysis shows a [...] surface light chains 09/22/2024 10:29 AM EDT [facility] Disclaimer This test was developed and [...] on the report. 09/22/2024 10:29 AM EDT [facility] Pathologist Signature Reviewed by: Lisandra Epstein MD 09/22/2024 10:29 AM EDT [facility] MRD Indicated Test Not Indicated 12/2024 10:29 AM EDT [facility] Bone Marrow Specimen from bone marrow obtained by aspiration / Unknown Non-blood Collection / Unknown 09/19/2024 7:29 AM EDT 09/19/2024 12:13 PM EDT us New Mckinney MD LAB FLOW CYTOMETRY ORDERABLES Final Result [facility] [address] [place] [address] * (ABNORMAL) CBC and differential (09/19/2024 7:29 AM EDT) WBC Count 2.70(L) 3.70 - 10.30 10*3/uL LAB HEMATOLOGY METHOD 09/19/2024 9:13 AM EDT [facility] RBC Count 1.86(L) 3.90 - 5.20 10*6/uL LAB HEMATOLOGY METHOD 09/19/2024 9:13 AM EDT [facility] HGB 7.1(L) 11.2 - 15.7 g/dL LAB HEMATOLOGY METHOD 09/19/2024 9:13 AM EDT [facility] HCT 21.5(L) 34.0 - 45.0 % LAB HEMATOLOGY METHOD 09/19/2024 9:13 AM EDT [facility] Platelet Count 14(LL) 155 - 369 10*3/uL LAB HEMATOLOGY METHOD 09/19/2024 9:13 AM EDT [facility] MCV 116(H) 79 - 98 fL LAB HEMATOLOGY METHOD 09/19/2024 9:13 AM EDT [facility] MCH 38.2(H) 26.0 - 32.0 pg LAB HEMATOLOGY METHOD 09/19/2024 9:13 AM EDT [facility] MCHC 33.0 30.7 - 35.5 g/dL LAB HEMATOLOGY METHOD 09/19/2024 9:13 AM EDT [facility] RDW 21.8(H) 11.5 - 14.5 % LAB HEMATOLOGY METHOD 09/19/2024 9:13 AM EDT [facility] MPV 13.5(H) 8.8 - 12.5 fL LAB HEMATOLOGY METHOD 09/19/2024 9:13 AM EDT [facility] nRBC 0.0 <=0.0 per 100 WBCs LAB HEMATOLOGY METHOD 09/19/2024 9:13 AM EDT [facility] Differential Type Automated LAB HEMATOLOGY METHOD 09/19/2024 9:13 AM EDT [facility] Neutrophils % 51 % LAB HEMATOLOGY METHOD 09/19/2024 9:13 AM EDT [facility] Lymphocytes % 41 % LAB HEMATOLOGY METHOD 09/19/2024 9:13 AM EDT [facility] Monocytes % 7 % LAB HEMATOLOGY METHOD 09/19/2024 9:13 AM EDT [facility] Eosinophils % 1 % LAB HEMATOLOGY METHOD 09/19/2024 9:13 AM EDT [facility] Basophils % 0 % LAB HEMATOLOGY METHOD 09/19/2024 9:13 AM EDT [facility] Immature Granulocytes % 0 % LAB HEMATOLOGY METHOD [facility]/19[facility]24 [facility] Neutrophils Absolute 1.35(L) 1.60 - 6.10 10*3/uL LAB HEMATOLOGY METHOD 09/19/2024 9:13 AM EDT [facility] Lymphocytes Absolute 1.10(L) 1.20 - 3.90 10*3/uL LAB HEMATOLOGY METHOD 09/19/2024 9:13 [facility] Monocytes Absolute 0.20(L) 0.30 - 0.90 10*3/uL LAB HEMATOLOGY METHOD 09/19/2024 9:13 AM [facility] Eosinophils Absolute 0.03 0.00 - 0.50 10*3/uL LAB HEMATOLOGY METHOD 09/19/2024 9:13 AM EDT [facility] Basophils Absolute 0.01 0.00 - 0.10 10*3/uL LAB HEMATOLOGY METHOD 09/19/2024 9:13 AM [facility] Immature Granulocytes Absolute 0.01 0.00 - 0.06 10*3/uL LAB HEMATOLOGY METHOD 09/19/2024 9:13 AM EDT [facility] Blood Blood sample taken from central line / Unknown (Port) Long-term Catheter / Unknown 09/19/2024 7:29 AM EDT 09/19/2024 8:08 AM EDT Narrative [facility] - 09/19/2024 9:13 AM EDT Therapeutic decision making should be based on absolute values, rather than percentages. New Mckinney MD LAB BLOOD ORDERABLES Final Re sult [facility] [address] [place] [id number] * Bone marrow exam (09/19/2024 7:29 AM EDT) Case Report Bone Marrow Case: [id number] Authorizing Provider: New Mckinney MD Collected: 09/19/2024728 Ordering Location: [facility] Hematology/BMT and Received: 09/19/2024 1216 Cellular Therapy Program Pathologist: Lisandra Epstein MD Specimens: A) - Bone Marrow Aspirate, right B) - Bone Marrow Biopsy, right C) - Peripheral Blood for Bone Marrow 3:15 PM EDT [facility] Cytogenetics Report, Addendum Chromosome Analysis Result Giemsa-banded metaphase cells from unstimulated bone marrow cultures showed a 46,XX[20] chromosome pattern. Interpretation Normal female chromosome analysis. No clonal abnormalities were detected at current resolution. Clinical correlation is recommended. 3:15 PM EDT [facility] Addendum electronically signed by Lisandra Epstein MD on 09/24/2024 at 1630 EDT Addendum Interpretation The following two (2) genes, TP53 and DNMT3A, with persistent variants have been detected in this bone marrow specimen. The variant, p.[id number], in TP53 gene and the variant, p.Koa499kol, in the RUNX 1 gene are not detectable at current cutoff and coverage established in this lab. Gene: TP53 Mutation: c.814G>A; p.Yzp542Umn Allele Frequency (%): 37% (45% Dec 2023) ID: [id number] Gene: DNMT3A Mutation: c.1522delC; p.Ymf059LrrjjImc2 43 Allele Frequency (%): 36% (48% Dec 2023) Additional Details on Mutation Identified: 3:15 PM EDT [facility] Addendum electronically signed by Lisandra Epstein MD on 09/30/2024 at 1515 EDT Final Diagnosis PERIPHERAL BLOOD AND BONE MARROW, RIGHT POSTERIOR ILIAC CREST, (ASPIRATE SMEAR, AND CORE BIOPSY): - HYPOCELLULAR BONE MARROW WITH MARKEDLY DECREASED MEGAKARYOCYTES; NO SIGNIFICANT DYSPOIESIS OR INCREASE IN BLASTS. 5 3:15 PM EDT [facility] at 1453 EDT Clinical Information AML 09/14 3:15 PM EDT [facility] CBC and Differential PERIPHERAL BLOOD: [...] blasts are not seen. 3:15 PM EDT [facility] Bone Marrow Differential BONE MARROW DIFFERENTIAL: 200 cells Normal Patient Neutrophils 15-50 34 Metamyelocytes 4-19 3 Myelocytes 1-18 10 Promyelocytes 1-8 1 Blasts 0-2 1 Monocytes 0-5 4 Erythroid 16-38 22 Lymphocytes 3-24 13 Eosinophils 0-6 8 Basophils 0-2 0 Plasma cells 0-4 4 Other 5 3:15 PM EDT [facility] Bone Marrow Aspirate and Biopsy [...] Bone trabeculae are unremarkable. 3:15 PM EDT [facility] Special and Immunohistochemical Stains Special Stain: A1-1 Vazquez-Giemsa A1-2 Vazquez-Giemsa A1-3 Vazquez-Giemsa C1-1 Vazquez-Giemsa IHC: B1-2 CD34 All controls show appropriate reactivity. All immunohistochemis try, in situ hybridization, and histochemical tests were developed by and are performed at the [facility], [address] [place] [address]. All tests reported here, except those addressing [...] negativity on decalcified specimens. 3:15 PM T [facility] Flow Cytometry Interpretation MIXED MARROW ELEMENTS WITH NO EVIDENCE OF INCREASED BLASTS OR ABNORMAL LYMPHOID POPULATIONS ([id number]). 3:15 PM EDT [facility] CYTOGENETICS/MOLECULA R INTERPRETATION Correlation with cytogenetic/molec ular analysis is suggested. 3:15 PM T [facility] Gross Description B. RIGHT A single specimen is received in formalin labeled bone marrow biopsy right posterior iliac crest and consists of 2 piece(s) of red/white tissue measuring 2.1/0.3 cm in length 0.2 cm in diameter. The specimen is submitted in to Histology for decalcification and routine processing. Cold Time: <1m 3:15 PM T [facility] Note: A resident was involved in the service. I attest I examined the relevant preparations for the specimens and confirmed the diagnosis or interpretation. 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
--- OUTSIDE RECORDS SUMMARY | 2024-09-30 09:00 | XMS_ITS | Encounter Summary ---
Author Organization Healthcare Address [address] [place] [address] Care Team Providers Care Litigation Coordinator Name Role Phone Jevon Vazquez MD Primary Care Provider [phone] Reason for Visit * Reason Comments Labs Only Encounter Details Date Type Department Care Team ([facility] Contact Info) Description 09/30/2024 9:00 AM EDT Clinical Support [facility] Hematology/BMT and Cellular Therapy Program [address] [phone] Jyoti Kemp Acute myeloid leukemia not having [...] Encounters Date Type Department Care Team ([facility] Contact Info) Description 10/29/2024 1:00 PM EDT Clinical Support [facility] Hematology/BMT and Cellular Therapy Program [address] [phone] 10/29/2024 1:30 PM EDT Office Visit [facility] Hematology/BMT and Cellular Therapy Program [address] [phone] Zonia Hoffman, COMPATIBILITY TEST ENGINEER 800 [facility] [address] [place] [phone] 10/29/2024 3:00 PM EDT Appointment [facility] 2 [address] [place] [address] 10/30/2024 3:00 PM EDT Appointment [facility] 2 [address] [place] [address] 10/31/2024 3:00 PM EDT Appointment [facility] 2 [address] [place] [address] 11/01/2024 3:00 PM EDT Appointment [facility] 2 [address] [place] [address] 11/02/2024 3:00 PM EDT Appointment [facility] 2 [address] [place] [address] 2024 3:00 PM EDT Appointment [facility] 2 [address] [place] [address] 11/04/2024 3:00 PM EDT Appointment [facility] 2 [address] [place] [address] documented as of this encounter Procedures Procedure [...] - 99 mg/dL 09/30/2024 10:20 AM EDT [facility] BUN, Plasma 21 8 - 23 mg/dL 09/30/2024 10:20 AM EDT [facility] Creatinine, Plasma 1.00 0.60 - 1.10 mg/dL 09/30/2024 10:20 AM EDT [facility] BUN/Creatinine Ratio 21 09/30/2024 10:20 AM EDT [facility] Sodium, Plasma 137 136 - 145 mmol/L 09/30/2024 10:20 AM EDT [facility] Potassium, Plasma 3.8 3.6 - 4.9 mmol/L 09/30/2024 10:20 AM EDT [facility] Chloride, Plasma 107 97 - 107 mmol/L 09/30/2024 10:20 AM EDT [facility] CO2, Plasma 22 22 - 29 mmol/L 09/30/2024 10:20 AM EDT [facility] Anion Gap 8 6 - 16 mmol/L 09/30/2024 10:20 AM EDT [facility] Total Calcium, Plasma 9.8 8.9 - 10.2 mg/dL 09/30/2024 10:20 AM EDT [facility] Total Protein 5.9(L) 6.3 - 7.9 g/dL 09/30/2024 10:20 AM EDT [facility] Albumin, Plasma 3.8 3.5 - 5.2 g/dL 09/30/2024 10:20 AM EDT [facility] AST, Plasma 28 10 - 35 U/L 09/30/2024 10:20 AM EDT [facility] ALT, Plasma 14 10 - 35 U/L 09/30/2024 10:20 AM EDT [facility] Alkaline Phosphatase, Plasma 34(L) 46 - 142 U/L 09/30/2024 10:20 AM EDT [facility] Total Bilirubin, Plasma 0.3 0.2 - 1.1 mg/dL 09/30/2024 10:20 AM EDT [facility] eGFRcr 59.6 mL/min/1.7 3m*2 09/30/2024 10:20 AM EDT [facility] Comment:Reported eGFRcr in m L/min/1.73m2 is based the CKD-EPI 2020 equation that does not use a race coefficient. Blood Venous blood specimen / Unknown (Port) Long-term Catheter / Unknown 09/30/2024 9:11 AM EDT 09/30/2024 9:50 AM EDT us Zonia Hardy [employer]rystalsky COMPATIBILITY TEST ENGINEER LAB BLOOD ORDERABLES Final Res ult [facility] [address] [place] [address] * (ABNORMAL) CBC and Differential (09/30/2024 9:11 AM EDT) WBC Count 3.34(L) 3.70 - 10.30 10*3/uL LAB HEMATOLOGY METHOD 09/30/2024 11:07 AM EDT [facility] RBC Count 1.91(L) 3.90 - 5.20 10*6/uL LAB HEMATOLOGY METHOD 09/30/2024 11:07 AM EDT [facility] HGB 7.7(L) 11.2 - 15.7 g/dL LAB HEMATOLOGY METHOD 09/30/2024 11:07 AM EDT [facility] HCT 22.8(L) 34.0 - 45.0 % LAB HEMATOLOGY METHOD 09/30/2024 11:07 AM EDT [facility] Platelet Count 17(LL) 155 - 369 10*3/uL LAB HEMATOLOGY METHOD 09/30/2024 11:07 AM EDT [facility] MCV 119(H) 79 - 98 fL LAB HEMATOLOGY METHOD 09/30/2024 11:07 AM EDT [facility] MCH 40.3(H) 26.0 - 32.0 pg LAB HEMATOLOGY METHOD 09/30/2024 11:07 AM EDT [facility] MCHC 33.8 30.7 - 35.5 g/dL LAB HEMATOLOGY METHOD 09/30/2024 11:07 AM EDT [facility] RDW 18.7(H) 11.5 - 14.5 % LAB HEMATOLOGY METHOD 09/30/2024 11:07 AM EDT [facility] MPV 11.1 8.8 - 12.5 fL LAB HEMATOLOGY METHOD 09/30/2024 11:07 AM EDT [facility] nRBC 0.0 <=0.0 per 100 WBCs LAB HEMATOLOGY METHOD 09/30/2024 11:07 AM EDT [facility] Differential Type Automated LAB HEMATOLOGY METHOD 09/30/2024 11:07 AM EDT [facility] Neutrophils % 65 % LAB HEMATOLOGY METHOD 09/30/2024 11:07 AM EDT [facility] Lymphocytes % 26 % LAB HEMATOLOGY METHOD 09/30/2024 11:07 AM EDT [facility] Monocytes % 7 % LAB HEMATOLOGY METHOD 09/30/2024 11:07 AM EDT [facility] Eosinophils % 1 % LAB HEMATOLOGY METHOD 09/30/2024 11:07 AM EDT [facility] Basophils % 1 % LAB HEMATOLOGY METHOD 09/30/2024 11:07 AM EDT [facility] Immature Granulocytes % 0 % LAB HEMATOLOGY METHOD 09/30/2024 11:07 AM EDT [facility] Neutrophils Absolute 2.17 1.60 - 6.10 10*3/uL LAB HEMATOLOGY METHOD 09/30/2024 11:07 AM EDT [facility] Lymphocytes Absolute 0.87(L) 1.20 - 3.90 10*3/uL LAB HEMATOLOGY METHOD 09/30/2024 11:07 AM EDT [facility] Monocytes Absolute 0.24(L) 0.30 - 0.90 10*3/uL LAB HEMATOLOGY METHOD 09/30/2024 11:07 AM EDT [facility] Eosinophils Absolute 0.03 0.00 - 0.50 10*3/uL LAB HEMATOLOGY METHOD 09/30/2024 11:07 AM EDT [facility] Basophils Absolute 0.02 0.00 - 0.10 10*3/uL LAB HEMATOLOGY METHOD 09/30/2024 11:07 AM EDT [facility] Immature Granulocytes Absolute 0.01 0.00 - 0.06 10*3/uL LAB HEMATOLOGY METHOD 09/30/2024 11:07 AM EDT [facility] Blood Venous blood specimen / Unknown (Port) Long-term Catheter / Unknown 09/30/2024 9:11 AM EDT 09/30/2024 9:34 AM EDT [facility] - 09/30/2024 11:07 AM EDT Therapeutic decision making should be based on absolute values, rather than percentages. 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
--- OUTSIDE RECORDS SUMMARY | 2024-09-30 09:30 | XMS_ITS | Encounter Summary ---
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 female. Referring Physician: Zonia Hoffman, HUMANE OFFICER 800 [facility] [address] [address] Primary Care Provider: Jevon Vazquez MD Chief [...] k/??L. 12/2023- seen by Dr. Manzano in [facility] for evaluation of anemia and lymphocytosis. [...] interphase cells examined show a deletion of K4D039. Next generation sequencing: Abnormal: TP53 (c.814G>A; p.[id number]) frequency 45%, DMNT3A (c.1522delC; p.[id number]) frequency 48%, RUNX1 (c.336_338delGCC; p.Tvt121iot) frequency 35% Azacitidine + Venetoclax Cycle 1: [...] peripheral blood). Dr. Mckinney discussed with Ms. eHrnández the significance of her peripheral blood and [...] - Continue local lab checks MWF at [facility] Allogenic transplant planning. 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 However, given her older age > 70, she would benefit from a geriatric BMT program and will make referrals should she be interested. Expected pancytopenia related to chemotherapy/AML. Check CBC x 3 times/week at [facility] Labs reviewed today, Hgb 7.7 , [...] charts, reviewing results, and documenting. RODDY Cristina [facility] HEMATOLOGY/BMT AND CELLULAR THERAPY PROGRAM 800 [facility] [address] 40 minutes was spent on this encounter; [...] Upcoming Encounters Date Type Department Care Team ([facility] st Contact Info) Description 10/29/2024 1:00 PM EDT Clinical [address] [facility] Hematology/BMT and Cellular Therapy Program 750 [facility], [address] [place] [address] [place] [address] 10/29/2024 1:30 [address] EDT Office [address] [facility] Hematology/BMT and Cellular Therapy Program [address] [place] [address] Zonia Hoffman, HUMANE OFFICER [address] [facility] [address] [place] [phone] 10/29/2024 3:00 PM EDT Appointment [facility] 2 [address] [place] [address] 10/30/2024 3:00 PM EDT Appointment [facility] 2 [address] [place] [address] 10/31/2024 3:00 PM EDT Appointment [facility] 2 [address] [place] [address] 11/01/2024 3:00 PM EDT Appointment [facility] 2 [address] [place] [address] 11/02/2024 3:00 PM EDT Appointment [facility] 2 [address] [place] [address] 2024 3:00 PM EDT Appointment [facility] 2 [address] [place] [address] 11/04/2024 3:00 PM EDT Appointment [facility] 2 [address] [place] [address] documented as of this encounter Results * (ABNORMAL) Comprehensive Metabolic Panel, Plasma (09/30/2024 9:11 AM EDT) [facility] Glucose, Plasma 135(H) 74 - 99 mg/dL [...] 09/30/2024 9:50 AM EDT us Zonia Hoffman HUMANE OFFICER LAB BLOOD ORDERABLES Final Res ult [facility] [address] [place] [address] * (ABNORMAL) CBC and Differential (09/30/2024 9:11 [...] AM EDT 09/30/2024 9:34 AM EDT Narrative [facility] - 09/30/2024 11:07 AM EDT Therapeutic decision making should be based on absolute values, rather than percentages. us Zonia Hoffman APRN LAB BLOOD ORDERABLES Final Res ult [facility] [address] [place] [address] documented in this encounter Visit Diagnoses Diagnosis [...] documented as of this encounter Care Teams Medical Social Consultant Relationship Specialty Start Date End Date Jevon Vazquez MD [address] [place] [address] #1 #1 [place] [address] PCP - General 03/23/22 documented as of this encounter
--- OUTSIDE RECORDS SUMMARY | 2024-10-20 09:00 | XMS_ITS | Encounter Summary ---
Author Organization Healthcare Address [address] [place] [address] Care Team Providers Care Principal Architectural Firm Name Role Phone Jevon Vazquez MD Primary Care Provider [phone] Encounter Details Date Type Department Care Team ([facility] Contact Info) Description 09/19/2024 Orders Only [facility] Hematology/BMT and Cellular Therapy Program [address] [phone] 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, RN [facility] Social History Tobacco [...] Encounters Date Type Department Care Team ([facility] Contact Info) Description 10/29/2024 1:00 PM EDT Clinical Support [facility] Hematology/BMT and Cellular Therapy Program [address] [phone] 10/29/2024 1:30 PM EDT Office Visit [facility] Hematology/BMT and Cellular Therapy Program [address] [phone] Zonia Hoffman, REPTILE FARMER 800 [facility] [address] [place] [address] 10/29/2024 3:00 PM EDT Appointment [facility] 2 [address] [place] [address] 10/30/2024 3:00 PM EDT Appointment [facility] 2 [address] [place] [address] 10/31/2024 3:00 PM EDT Appointment [facility] 2 [address] [place] [address] 11/01/2024 3:00 PM EDT Appointment [facility] 2 [address] [place] [address] 11/02/2024 3:00 PM EDT Appointment [facility] 2 [address] [place] [address] 2024 3:00 PM EDT Appointment [facility] 2 [address] [place] [address] 11/04/2024 3:00 PM EDT Appointment [facility] 2 [address] [place] [address] documented as of this encounter Visit Diagnoses Not on filedocumented in this encounter Additional Health Concerns Assessment Noted Time A fall risk assessment has been complete d for the patient 09/19/2024 8:38 AM EDT A Body Mass Index follow-up plan has been documented for the patient 05/28/2024 1:52 PM EST documented as of this encounter Care Teams Principal Architectural Firm Relationship Specialty Start Date End Date Jevon Vazquez MD [address] [place] [address] #1 #1 [place] [address] PCP - General 03/23/22 documented as of this encounter
--- OUTSIDE RECORDS SUMMARY | 2024-10-20 09:00 | XMS_ITS | Encounter Summary ---
Author Organization Healthcare Address [address] [place] [address] Care Team Providers Care Range Feeder Name Role Phone Jevon Vazquez MD Primary Care Provider [phone] Encounter Details Date Type Department Care Team [...] Hematology/BMT and Cellular Therapy Program [address] [address] 10/29/2024 1:30 PM EDT Office Visit [facility] Hematology/BMT and Cellular Therapy Program [address] [address] Zonia Hoffman, BODY MAKER 800 [facility] [address] [place] [address] 10/29/2024 3:00 PM EDT Appointment [facility] [address] [place] [address] 10/30/2024 3:00 PM EDT Appointment [facility] 2 [address] [place] [address] 10/31/2024 3:00 PM EDT Appointment [facility] 2 [address] [place] [address] 11/01/2024 3:00 PM EDT Appointment [facility] 2 [address] [place] [address] 11/02/2024 3:00 PM EDT Appointment [facility] 2 [address] [place] [address] 2024 3:00 PM EDT Appointment [facility] 2 [address] [place] [address] 11/04/2024 3:00 PM EDT Appointment [facility] 2 [address] [place] [address] documented as of this encounter Visit Diagnoses Not on filedocumented in this encounter Additional Health Concerns Assessment Noted Time A fall risk assessment has been complete d for the patient 09/30/2024 9:33 AM EDT A Body Mass Index follow-up plan has been documented for the patient 05/28/2024 1:52 PM EST documented as of this encounter Care Teams Range Feeder Relationship Specialty Start Date End Date Jevon Vazquez MD [address] [place] [address] #1 [address]1 [place] [address] PCP - General 03/23/22 documented as of this encounter
--- OUTSIDE RECORDS SUMMARY | 2024-10-20 09:00 | XMS_ITS | Encounter Summary ---
Author Organization Healthcare Address [address] [place] [address] Care Team Providers Care Molding And Trim Installer Name Role Phone Jevon Vazquez MD Primary Care Provider [phone] Encounter Details Date Type Department Care Team [...] Hematology/BMT and Cellular Therapy Program [address] [address] 10/29/2024 1:30 PM EDT Office Visit [facility] Hematology/BMT and Cellular Therapy Program [address] [address] Zonia Hoffman, SALES SUPPORT REPRESENTATIVE 800 [facility] [address] [place] [address] 10/29/2024 3:00 PM EDT Appointment [facility] [address] [place] [address] 10/30/2024 3:00 PM EDT Appointment [facility] 2 [address] [place] [address] 10/31/2024 3:00 PM EDT Appointment [facility] 2 [address] [place] [address] 11/01/2024 3:00 PM EDT Appointment [facility] 2 [address] [place] [address] 11/02/2024 3:00 PM EDT Appointment [facility] 2 [address] [place] [address] 2024 3:00 PM EDT Appointment [facility] 2 [address] [place] [address] 11/04/2024 3:00 PM EDT Appointment [facility] 2 [address] [place] [address] documented as of this encounter Visit Diagnoses Not on filedocumented in this encounter Additional Health Concerns Assessment Noted Time A fall risk assessment has been complete d for the patient 09/19/2024 8:38 AM EDT A Body Mass Index follow-up plan has been documented for the patient 05/28/2024 1:52 PM EST documented as of this encounter Care Teams Molding And Trim Installer Relationship Specialty Start Date End Date Jevon Vazquez MD [address] [place] [address] #1 #1 [place] [address] PCP - General 03/23/22 documented as of this encounter
--- OUTSIDE RECORDS SUMMARY | 2024-10-20 09:00 | XMS_ITS | Encounter Summary ---
Author Organization Healthcare Address [address] [place] [address] Care Team Providers Care Private Detective Name Role Phone Jevon Vazquez MD Primary Care Provider [phone] Encounter Details Date Type Department Care Team [...] Hematology/BMT and Cellular Therapy Program [address] [address] 10/29/2024 1:30 PM EDT Office Visit [facility] Hematology/BMT and Cellular Therapy Program [address] [address] Zonia Hoffman, ALODIZE MACHINE HELPER 800 [facility] [address] [place] [address] 10/29/2024 3:00 PM EDT Appointment [facility] 2 [address] [place] [address] 10/30/2024 3:00 PM EDT Appointment [facility] 2 [address] [place] [address] 10/31/2024 3:00 PM EDT Appointment [facility] 2 [address] [place] [address] 11/01/2024 3:00 PM EDT Appointment [facility] 2 [address] [place] [address] 11/02/2024 3:00 PM EDT Appointment [facility] 2 [address] [place] [address] 2024 3:00 PM EDT Appointment [facility] 2 [address] [place] [address] 11/04/2024 3:00 PM EDT Appointment [facility] 2 [address] [place] [address] documented as of this encounter Visit Diagnoses Not on filedocumented in this encounter Additional Health Concerns Assessment Noted Time A fall risk assessment has been complete d for the patient 07/30/2024 8:29 AM EDT A Body Mass Index follow-up plan has been documented for the patient 05/28/2024 1:52 PM EST documented as of this encounter Care Teams Private Detective Relationship Specialty Start Date End Date Jevon Vazquez MD [address] [place] [address] #1 [address]1 [place] [address] PCP - General 03/23/22 documented as of this encounter
--- OUTSIDE RECORDS SUMMARY | 2024-10-20 09:00 | XMS_ITS | Encounter Summary ---
Author Organization Healthcare Address [address] [place] [address] Care Team Providers Care Special Projects Coordinator Name Role Phone Jevon Vazquez MD [...] Hematology/BMT and Cellular Therapy Program [address] [address] 10/29/2024 1:30 PM EDT Office Visit [facility] Hematology/BMT and Cellular Therapy Program [address] [phone] Zonia Hoffman, LOCOMOTIVE SWITCH OPERATOR 800 [facility] [address] [place] [address] 10/29/2024 3:00 PM EDT Appointment [facility] 2 [address] [place] [address] 10/30/2024 3:00 PM EDT Appointment [facility] 2 [address] [place] [address] 10/31/2024 3:00 PM EDT Appointment [facility] 2 [address] [place] [address] 11/01/2024 3:00 PM EDT Appointment [facility] 2 [address] [place] [address] 11/02/2024 3:00 PM EDT Appointment [facility] 2 [address] [place] [address] 2024 3:00 PM EDT Appointment [facility] 2 [address] [place] [address] 11/04/2024 3:00 PM EDT Appointment [facility] 2 [address] [place] [address] documented as of this encounter Visit Diagnoses Not on filedocumented in this encounter Additional Health Concerns Assessment Noted Time A fall risk assessment has been complete d for the patient 09/30/2024 9:33 AM EDT A Body Mass Index follow-up plan has been documented for the patient 05/28/2024 1:52 PM EST documented as of this encounter Care Teams Special Projects Coordinator Relationship Specialty Start Date End Date Jevon Vazquez MD [address] [place] [address] #1 [address]1 [place] [address] PCP - General 03/23/22 documented as of this encounter
--- OUTSIDE RECORDS SUMMARY | 2024-10-20 09:00 | XMS_ITS | Encounter Summary ---
Author Organization Healthcare Address [address] [place] [address] Care Team Providers Care Supervisor Roving Name Role Phone Jevon Vazquez MD Primary Care Provider [phone] Encounter Details Date Type Department Care Team [...] Hematology/BMT and Cellular Therapy Program [address] [address] 10/29/2024 1:30 PM EDT Office Visit [facility] Hematology/BMT and Cellular Therapy Program [address] [address] Zonia Hoffman, SURFACER OPERATOR 800 [facility] [address] [place] [address] 10/29/2024 3:00 PM EDT Appointment [facility] 2 [address] [place] [address] 10/30/2024 3:00 PM EDT Appointment [facility] 2 [address] [place] [address] 10/31/2024 3:00 PM EDT Appointment [facility] 2 [address] [place] [address] 11/01/2024 3:00 PM EDT Appointment [facility] 2 [address] [place] [address] 11/02/2024 3:00 PM EDT Appointment [facility] 2 [address] [place] [address] 2024 3:00 PM EDT Appointment [facility] 2 [address] [place] [address] 11/04/2024 3:00 PM EDT Appointment [facility] 2 [address] [place] [address] documented as of this encounter Visit Diagnoses Not on filedocumented in this encounter Additional Health Concerns Assessment Noted Time A fall risk assessment has been complete d for the patient 07/30/2024 8:29 AM EDT A Body Mass Index follow-up plan has been documented for the patient 05/28/2024 1:52 PM EST documented as of this encounter Care Teams Supervisor Roving Relationship Specialty Start Date End Date Jevon Vazquez MD [address] [place] [address] [address]1 [address]1 [place] [address] PCP - General 03/23/22 documented as of this encounter
--- OUTSIDE RECORDS SUMMARY | 2024-10-20 09:00 | XMS_ITS | Encounter Summary ---
Author Organization Healthcare Address [address] [place] [address] Care Team Providers Care Title Checker Name Role Phone Jevon Vazquez MD Primary Care Provider [phone] Encounter Details Date Type Department Care Team [...] Hematology/BMT and Cellular Therapy Program [address] [address] 10/29/2024 1:30 PM EDT Office Visit [facility] Hematology/BMT and Cellular Therapy Program [address] [address] Zonia Hoffman, MANAGER OF ORGANIZATIONAL DEVELOPMENT 800 [facility] [address] [place] [address] 10/29/2024 3:00 PM EDT Appointment [facility] 2 [address] [place] [address] 10/30/2024 3:00 PM EDT Appointment [facility] 2 [address] [place] [address] 10/31/2024 3:00 PM EDT Appointment [facility] 2 [address] [place] [address] 11/01/2024 3:00 PM EDT Appointment [facility] 2 [address] [place] [address] 11/02/2024 3:00 PM EDT Appointment [facility] 2 [address] [place] [address] 2024 3:00 PM EDT Appointment [facility] 2 [address] [place] [address] 11/04/2024 3:00 PM EDT Appointment [facility] 2 [address] [place] [address] documented as of this encounter Visit Diagnoses Not on filedocumented in this encounter Additional Health Concerns Assessment Noted Time A fall risk assessment has been complete d for the patient 07/30/2024 8:29 AM EDT A Body Mass Index follow-up plan has been documented for the patient 05/28/2024 1:52 PM EST documented as of this encounter Care Teams Title Checker Relationship Specialty Start Date End Date Jevon Vazquez MD [address] [place] [address] #1 [address]1 [place] [address] PCP - General 03/23/22 documented as of this encounter
--- OUTSIDE RECORDS SUMMARY | 2024-10-20 09:00 | XMS_ITS | Encounter Summary ---
Author Organization Healthcare Address [address] [place] [address] Care Team Providers Care Rocket Test Fire Worker Name Role Phone Jevon Vazquez MD Primary Care Provider [phone] Encounter Details Date Type Department Care Team (Late Contact Info) Description 09/30/2024 Telephone [facility] Hematology/BMT and Cellular Therapy Program [address] [place] [address] Zoraida Good, RN [facility] Social [...] Hematology/BMT and Cellular Therapy Program [address] [place] [address] 10/29/2024 1:30 PM EDT Office Visit [facility] Hematology/BMT and Cellular Therapy Program 750 [facility] [place] [address] Zonia Hoffman, ETL ANALYST 800 [facility] [address] [place] [address] 10/29/2024 3:00 PM EDT Appointment [facility] 2 [address] [place] [address] 10/30/2024 3:00 PM EDT Appointment [facility] 2 [address] [place] [address] 10/31/2024 3:00 PM EDT Appointment [facility] 2 [address] [place] [address] 11/01/2024 3:00 PM EDT Appointment [facility] 2 [address] [place] [address] 11/02/2024 3:00 PM EDT Appointment [facility] 2 [address] [place] [address] 2024 3:00 PM EDT Appointment [facility] 2 [address] [place] [address] 11/04/2024 3:00 PM EDT Appointment [facility] 2 [address] [place] [address] documented as of this encounter Visit Diagnoses Not on filedocumented in this encounter Additional Health Concerns Assessment Noted Time A fall risk assessment has been complete d for the patient 09/30/2024 9:33 AM EDT A Body Mass Index follow-up plan has been documented for the patient 05/28/2024 1:52 PM EST documented as of this encounter Care Teams Rocket Test Fire Worker Relationship Specialty Start Date End Date Jevon Vazquez MD [address] [place] [address] #1 #1 [place] [address] PCP - General 03/23/22 documented as of this encounter
--- OUTSIDE RECORDS SUMMARY | 2024-10-20 09:00 | XMS_ITS | Encounter Summary ---
Author Organization Healthcare Address [address] [place] [address] Care Team Providers Care Engineering Librarian Name Role Phone Jevon Vazquez MD Primary Care Provider [phone] Encounter Details Date Type Department Care Team [...] Hematology/BMT and Cellular Therapy Program [address] [address] 10/29/2024 1:30 PM EDT Office Visit [facility] Hematology/BMT and Cellular Therapy Program [address] [address] Zonia Hoffman, RADIO DISC JOCKEY 800 [facility] [address] [place] [address] 10/29/2024 3:00 PM EDT Appointment [facility] 2 [address] [place] [address] 10/30/2024 3:00 PM EDT Appointment [facility] 2 [address] [place] [address] 10/31/2024 3:00 PM EDT Appointment [facility] 2 [address] [place] [address] 11/01/2024 3:00 PM EDT Appointment [facility] 2 [address] [place] [address] 11/02/2024 3:00 PM EDT Appointment [facility] 2 [address] [place] [address] 2024 3:00 PM EDT Appointment [facility] 2 [address] [place] [address] 11/04/2024 3:00 PM EDT Appointment [facility] 2 [address] [place] [address] documented as of this encounter Visit Diagnoses Not on filedocumented in this encounter Additional Health Concerns Assessment Noted Time A fall risk assessment has been complete d for the patient 07/30/2024 8:29 AM EDT A Body Mass Index follow-up plan has been documented for the patient 05/28/2024 1:52 PM EST documented as of this encounter Care Teams Engineering Librarian Relationship Specialty Start Date End Date Jevon Vazquez MD [address] [place] [address] #1 #1 [place] [address] PCP - General 03/23/22 documented as of this encounter
--- OUTSIDE RECORDS SUMMARY | 2024-10-20 09:00 | XMS_ITS | Encounter Summary ---
Author Organization Healthcare Address [address] [place] [address] Care Team Providers Care Lab Tester Name Role Phone Jevon Vazquez MD [...] Hematology/BMT and Cellular Therapy Program [address] [address] 10/29/2024 1:30 PM EDT Office Visit [facility] Hematology/BMT and Cellular Therapy Program [address] [address] Zonia Hoffman, SBA BUSINESS DEVELOPMENT OFFICER 800 [facility] [address] [place] [address] 10/29/2024 3:00 PM EDT Appointment [facility] 2 [address] [place] [address] 10/30/2024 3:00 PM EDT Appointment [facility] 2 [address] [place] [address] 10/31/2024 3:00 PM EDT Appointment [facility] 2 [address] [place] [address] 11/01/2024 3:00 PM EDT Appointment [facility] 2 [address] [place] [address] 11/02/2024 3:00 PM EDT Appointment [facility] 2 [address] [place] [address] 2024 3:00 PM EDT Appointment [facility] 2 [address] [place] [address] 11/04/2024 3:00 PM EDT Appointment [facility] 2 [address] [place] [address] documented as of this encounter Visit Diagnoses Not on filedocumented in this encounter Additional Health Concerns Assessment Noted Time A fall risk assessment has been complete d for the patient 07/30/2024 8:29 AM EDT A Body Mass Index follow-up plan has been documented for the patient 05/28/2024 1:52 PM EST documented as of this encounter Care Teams Lab Tester Relationship Specialty Start Date End Date Jevon Vazquez MD [address] [place] [address] #1 #1 [place] [address] PCP - General 03/23/22 documented as of this encounter
--- OUTSIDE RECORDS SUMMARY | 2024-10-20 09:00 | XMS_ITS | Encounter Summary ---
Author Organization [facility] Address [address] [place] [address] Care Team Providers Care Advanced Practice Nurse Psychotherapist Name Role Phone Jevon Vazquez MD Primary Care Provider [phone] Encounter Details Date Type Department Care Team ([facility] Contact Info) Description 09/19/2024 Telephone [facility] Hematology/BMT and Cellular Therapy Program [address] [place] [address] Romana Richmond RN [facility] Social History Tobacco Use Types [...] Team ([facility] Contact Info) Description 10/29/2024 1:00 PM EDT Clinical Support [facility] Hematology/BMT and Cellular Therapy Program [address] [place] [address] 10/29/2024 1:30 PM EDT Office Visit [facility] Hematology/BMT and Cellular Therapy Program 750 [facility] [address] [place] [address] Zonia Hoffman, DIRECTOR OF PSYCHOLOGY [address] [facility] [address] [place] [address] 10/29/2024 3:00 PM EDT Appointment [facility] 2 [address] [place] [address] 10/30/2024 3:00 PM EDT Appointment [facility] 2 [address] [place] [address] 10/31/2024 3:00 PM EDT Appointment [facility] 2 [address] [place] [address] 11/01/2024 3:00 PM EDT Appointment [facility] 2 [address] [place] [address] 11/02/2024 3:00 PM EDT Appointment [facility] 2 [address] [place] [address] 2024 3:00 PM EDT Appointment [facility] 2 [address] [place] [address] 11/04/2024 3:00 PM EDT Appointment [facility] 2 [address] [place] [address] documented as of this encounter Visit Diagnoses Not on filedocumented in this encounter Additional Health Concerns Assessment Noted Time A fall risk assessment has been complete d for the patient 09/19/2024 8:38 AM EDT A Body Mass Index follow-up plan has been documented for the patient 05/28/2024 1:52 PM EST documented as of this encounter Care Teams Advanced Practice Nurse Psychotherapist Relationship Specialty Start Date End Date Jevon Vazquez MD [address] [place] [address] #1 #1 [place] [address] PCP - General 03/23/22 documented as of this encounter
--- OUTSIDE RECORDS SUMMARY | 2024-10-20 09:00 | XMS_ITS | Encounter Summary ---
Author Organization Healthcare Address [address] [place] [address] Care Team Providers Care Recovery Advocate Name Role Phone Jevon Vazquez MD Primary Care Provider [phone] Encounter Details Date Type Department Care Team [...] Hematology/BMT and Cellular Therapy Program [address] [address] 10/29/2024 1:30 PM EDT Office Visit [facility] Hematology/BMT and Cellular Therapy Program [address] [address] Zonia Hoffman, RETAIL PRODUCT ADVISOR 800 [facility] [address] [place] [address] 10/29/2024 3:00 PM EDT Appointment [facility] 2 [address] [place] [address] 10/30/2024 3:00 PM EDT Appointment [facility] 2 [address] [place] [address] 10/31/2024 3:00 PM EDT Appointment [facility] 2 [address] [place] [address] 11/01/2024 3:00 PM EDT Appointment [facility] 2 [address] [place] [address] 11/02/2024 3:00 PM EDT Appointment [facility] 2 [address] [place] [address] 2024 3:00 PM EDT Appointment [facility] 2 [address] [place] [address] 11/04/2024 3:00 PM EDT Appointment [facility] 2 [address] [place] [address] documented as of this encounter Visit Diagnoses Not on filedocumented in this encounter Additional Health Concerns Assessment Noted Time A fall risk assessment has been complete d for the patient 07/30/2024 8:29 AM EDT A Body Mass Index follow-up plan has been documented for the patient 05/28/2024 1:52 PM EST documented as of this encounter Care Teams Recovery Advocate Relationship Specialty Start Date End Date Jevon Vazquez MD [address] [place] [address] #1 [address]1 [place] [address] PCP - General 03/23/22 documented as of this encounter
--- OUTSIDE RECORDS SUMMARY | 2024-10-20 09:00 | XMS_ITS | Encounter Summary ---
Author Organization [facility] Address [address] [place] [address] Care Team Providers Care Music Education Adjunct Professor Name Role Phone Jevon Vazquez MD Primary Care Provider [phone] Reason for Visit * Reason Comments Med Refill Encounter Details Date Type Department Care Team ([facility] Contact Info) Description 09/12/2024 Refill [facility] Hematology/BMT and Cellular Therapy Program [address] [phone] [place] MD 800 [facility] [address] [place] [address] Social History Tobacco Use Types Packs/Day Years [...] Upcoming Encounters Date Type Department Care Team ([facility] Contact Info) Description 10/29/2024 1:00 PM EDT Clinical Support [facility] Hematology/BMT and Cellular Therapy Program [address] [phone] 10/29/2024 1:30 PM EDT Office Visit [facility] Hematology/BMT and Cellular Therapy Program [address] [address] Zonia Hoffman, VARNISH SUPERVISOR 800 [facility] [address] [place] [address] 10/29/2024 3:00 PM EDT Appointment [facility] 2 [address] [place] [address] 10/30/2024 3:00 PM EDT Appointment [facility] 2 [address] [place] [address] 10/31/2024 3:00 PM EDT Appointment [facility] 2 [address] [place] [address] 11/01/2024 3:00 PM EDT Appointment [facility] 2 [address] [place] [address] 11/02/2024 3:00 PM EDT Appointment [facility] 2 [address] [place] [address] 2024 3:00 PM EDT Appointment [facility] 2 [address] [place] [address] 11/04/2024 3:00 PM EDT Appointment [facility] 2 [address] [place] [address] documented as of this encounter Visit Diagnoses Not on filedocumented in this encounter Additional Health Concerns Assessment Noted Time A fall risk assessment has been complete d for the patient 07/30/2024 8:29 AM EDT A Body Mass Index follow-up plan has been documented for the patient 05/28/2024 1:52 PM EST documented as of this encounter Care Teams Music Education Adjunct Professor Relationship Specialty Start Date End Date Jevon Vazquez MD [address] [place] [address] #1 #1 [place] [address] PCP - General 03/23/22 documented as of this encounter
--- OUTSIDE RECORDS SUMMARY | 2024-10-20 09:00 | XMS_ITS | Encounter Summary ---
Author Organization [facility] Address [address] [place] [address] Care Team Providers Care Forming Tube Selector Name Role Phone Jevon aVzquez MD Primary Care Provider [phone] Reason for Visit * Reason Comments Med Refill Encounter Details Date Type Department Care Team ([facility] Contact Info) Description 01/30/2024 Refill [facility] Hematology/BMT and Cellular Therapy Program [address] [phone] New Mckinney MD 800 [facility] [address] [place] [phone] Social History Tobacco Use Types Packs/Day Years [...] Team ([facility] Contact Info) Description 10/29/2024 1:00 PM EDT Clinical Support [facility] Hematology/BMT and Cellular Therapy Program [address] [place] [address] 10/29/2024 1:30 PM EDT Office Visit [facility] Hematology/BMT and Cellular Therapy Program [address] [phone] Zonia Hoffman, TURN SEWER [address] [facility] [address] [place] [address] 10/29/2024 3:00 PM EDT Appointment [facility] [address] [place] [address] 10/30/2024 3:00 PM EDT Appointment [facility] 2 [address] [place] [address] 10/31/2024 3:00 PM EDT Appointment [facility] 2 [address] [place] [address] 11/01/2024 3:00 PM EDT Appointment [facility] 2 [address] [place] [address] 11/02/2024 3:00 PM EDT Appointment [facility] 2 [address] [place] [address] 2024 3:00 PM EDT Appointment [facility] 2 [address] [place] [address] 11/04/2024 3:00 PM EDT Appointment [facility] 2 [address] [place] [address] documented as of this encounter Visit Diagnoses Not on filedocumented in this encounter Additional Health Concerns Assessment Noted Time A fall risk assessment has been complete d for the patient 01/11/2024 9:16 AM EDT A Body Mass Index follow-up plan has been documented for the patient 01/21/2024 6:16 AM EDT documented as of this encounter Care Teams Forming Tube Selector Relationship Specialty Start Date End Date Jevon Vazquez MD [address] [place] [address] #1 #1 [place] [address] PCP - General 03/23/22 documented as of this encounter
--- OUTSIDE RECORDS SUMMARY | 2024-10-20 09:00 | XMS_ITS | Encounter Summary ---
Author Organization [facility] Address [address] [place] [address] Care Team Providers Care Equipment Engineering Technician Name Role Phone Jevon Vazquez MD Primary Care Provider [phone] Encounter Details Date Type Department Care Team ([facility] Contact Info) Description 09/15/2024 Telephone [facility] Hematology/BMT and Cellular Therapy Program [address] [phone] Zonia Hoffman, FASTENER SEWING MACHINE OPERATOR 800 [facility] [address] [place] [phone] Social History Tobacco Use Types Packs/Day Years [...] Encounters Date Type Department Care Team ([facility] Contact Info) Description 10/29/2024 1:00 PM EDT Clinical Support [facility] Hematology/BMT and Cellular Therapy Program [address] [phone] 10/29/2024 1:30 PM EDT Office Visit [facility] Hematology/BMT and Cellular Therapy Program [address] [phone] Zonia Hoffman, FASTENER SEWING MACHINE OPERATOR 800 [facility] [address] [place] [address] 10/29/2024 3:00 PM EDT Appointment [facility] 2 [address] [place] [address] 10/30/2024 3:00 PM EDT Appointment [facility] 2 [address] [place] [address] 10/31/2024 3:00 PM EDT Appointment [facility] 2 [address] [place] [address] 11/01/2024 3:00 PM EDT Appointment [facility] 2 [address] [place] [address] 11/02/2024 3:00 PM EDT Appointment [facility] 2 [address] [place] [address] 2024 3:00 PM EDT Appointment [facility] 2 [address] [place] [address] 11/04/2024 3:00 PM EDT Appointment [facility] 2 [address] [place] [address] documented as of this encounter Visit Diagnoses Not on filedocumented in this encounter Additional Health Concerns Assessment Noted Time A fall risk assessment has been complete d for the patient 07/30/2024 8:29 AM EDT A Body Mass Index follow-up plan has been documented for the patient 05/28/2024 1:52 PM EST documented as of this encounter Care Teams Equipment Engineering Technician Relationship Specialty Start Date End Date Jevon Vazquez MD [address] [place] [address] #1 #1 [place] [address] PCP - General 03/23/22 documented as of this encounter
--- OUTSIDE RECORDS SUMMARY | 2024-10-20 09:00 | XMS_ITS ---
Author Organization [facility] Address [address] [place] [address] Care Team Providers Care Civil Design Technician Name Role Phone Jevon Vazquez MD Primary Care Provider [phone] Active Problems Problem Noted Date Diagnosed Date [...]
--- OUTSIDE RECORDS SUMMARY | 2024-10-20 09:00 | XMS_ITS | Encounter Summary ---
Author Organization [facility] Address [address] [place] [address] Care Team Providers Care Radio Sportscaster Name Role Phone Jevon Vazquez MD Primary Care Provider [phone] Encounter Details Date Type Department Care Team [...] Hematology/BMT and Cellular Therapy Program [address] [phone] 10/29/2024 1:30 PM EDT Office Visit [facility] Hematology/BMT and Cellular Therapy Program [address] [phone] Zonia Hoffman, SHIP PILOT DISPATCHER 800 [facility] [address] [place] [phone] 10/29/2024 3:00 PM EDT Appointment [facility] 2 [address] [place] [address] 10/30/2024 3:00 PM EDT Appointment [facility] 2 [address] [place] [address] 10/31/2024 3:00 PM EDT Appointment [facility] 2 [address] [place] [address] 11/01/2024 3:00 PM EDT Appointment [facility] 2 [address] [place] [address] 11/02/2024 3:00 PM EDT Appointment [facility] 2 [address] [place] [address] 2024 3:00 PM EDT Appointment [facility] 2 [address] [place] [address] 11/04/2024 3:00 PM EDT Appointment [facility] 2 [address] [place] [address] documented as of this encounter Visit Diagnoses Not on filedocumented in this encounter Additional Health Concerns Assessment Noted Time A fall risk assessment has been complete d for the patient 07/30/2024 8:29 AM EDT A Body Mass Index follow-up plan has been documented for the patient 05/28/2024 1:52 PM EST documented as of this encounter Care Teams Radio Sportscaster Relationship Specialty Start Date End Date Jevon Vazquez MD [address] [place] [address] #1 #1 [place] [address] PCP - General 03/23/22 documented as of this encounter
--- OUTSIDE RECORDS SUMMARY | 2024-10-20 09:00 | XMS_ITS | Encounter Summary ---
Author Organization [facility] Address [address] [place] [address] Care Team Providers Care Housekeeping Manager Name Role Phone Jevon Vazquez MD Primary Care Provider [phone] Encounter Details Date Type Department Care Team [...] Hematology/BMT and Cellular Therapy Program [address] [address] 10/29/2024 1:30 PM EDT Office Visit [facility] Hematology/BMT and Cellular Therapy Program [address] [phone] Zonia Hoffman, DEVELOPMENT WRITER 800 [facility] [address] [place] [address] 10/29/2024 3:00 PM EDT Appointment [facility] 2 [address] [place] [address] 10/30/2024 3:00 PM EDT Appointment [facility] 2 [address] [place] [address] 10/31/2024 3:00 PM EDT Appointment [facility] 2 [address] [place] [address] 11/01/2024 3:00 PM EDT Appointment [facility] 2 [address] [place] [address] 11/02/2024 3:00 PM EDT Appointment [facility] 2 [address] [place] [address] 2024 3:00 PM EDT Appointment [facility] 2 [address] [place] [address] 11/04/2024 3:00 PM EDT Appointment [facility] 2 [address] [place] [address] documented as of this encounter Visit Diagnoses Not on filedocumented in this encounter Additional Health Concerns Assessment Noted Time A fall risk assessment has been complete d for the patient 09/19/2024 8:38 AM EDT A Body Mass Index follow-up plan has been documented for the patient 05/28/2024 1:52 PM EST documented as of this encounter Care Teams Housekeeping Manager Relationship Specialty Start Date End Date Jevon Vazquez MD [address] [place] [address] #1 #1 [place] [address] PCP - General 03/23/22 documented as of this encounter
--- OUTSIDE RECORDS SUMMARY | 2024-10-20 09:00 | XMS_ITS | Encounter Summary ---
Author Organization [facility] Address [address] [place] [address] Care Team Providers Care Changer Fixer Name Role Phone Jevon Vazquez MD Primary Care Provider [phone] Encounter Details Date Type Department Care Team [...] Hematology/BMT and Cellular Therapy Program [address] [address] 10/29/2024 1:30 PM EDT Office Visit [facility] Hematology/BMT and Cellular Therapy Program [address] [phone] Zonia Hoffman, HELP DESK SPECIALIST 800 [facility] [address] [place] [address] 10/29/2024 3:00 PM EDT Appointment [facility] 2 [address] [place] [address] 10/30/2024 3:00 PM EDT Appointment [facility] 2 [address] [place] [address] 10/31/2024 3:00 PM EDT Appointment [facility] 2 [address] [place] [address] 11/01/2024 3:00 PM EDT Appointment [facility] 2 [address] [place] [address] 11/02/2024 3:00 PM EDT Appointment [facility] 2 [address] [place] [address] 2024 3:00 PM EDT Appointment [facility] 2 [address] [place] [address] 11/04/2024 3:00 PM EDT Appointment [facility] 2 [address] [place] [address] documented as of this encounter Visit Diagnoses Not on filedocumented in this encounter Additional Health Concerns Assessment Noted Time A fall risk assessment has been complete d for the patient 09/30/2024 9:33 AM EDT A Body Mass Index follow-up plan has been documented for the patient 05/28/2024 1:52 PM EST documented as of this encounter Care Teams Changer Fixer Relationship Specialty Start Date End Date Jevon Vazquez MD [address] [place] [address] #1 #1 [place] [address] PCP - General 03/23/22 documented as of this encounter
--- OUTSIDE RECORDS SUMMARY | 2024-10-20 09:00 | XMS_ITS | Encounter Summary ---
Author Organization [facility] Address [address] [place] [address] Care Team Providers Care Test Tube Maker Name Role Phone Jevon Vazquez MD Primary Care Provider [phone] Encounter Details Date Type Department Care Team [...] Hematology/BMT and Cellular Therapy Program [address] [phone] 10/29/2024 1:30 PM EDT Office Visit [facility] Hematology/BMT and Cellular Therapy Program [address] [phone] Zonia Hoffman, WEIGHT CONTROL LECTURER 800 [facility] [address] [place] [address] 10/29/2024 3:00 PM EDT Appointment [facility] 2 [address] [place] [address] 10/30/2024 3:00 PM EDT Appointment [facility] 2 [address] [place] [address] 10/31/2024 3:00 PM EDT Appointment [facility] 2 [address] [place] [address] 11/01/2024 3:00 PM EDT Appointment [facility] 2 [address] [place] [address] 11/02/2024 3:00 PM EDT Appointment [facility] 2 [address] [place] [address] 2024 3:00 PM EDT Appointment [facility] 2 [address] [place] [address] 11/04/2024 3:00 PM EDT Appointment [facility] 2 [address] [place] [address] documented as of this encounter Visit Diagnoses Not on filedocumented in this encounter Additional Health Concerns Assessment Noted Time A fall risk assessment has been complete d for the patient 07/30/2024 8:29 AM EDT A Body Mass Index follow-up plan has been documented for the patient 05/28/2024 1:52 PM EST documented as of this encounter Care Teams Test Tube Maker Relationship Specialty Start Date End Date Jevon Vazquez MD [address] [place] [address] #1 #1 [place] [address] PCP - General 03/23/22 documented as of this encounter
--- OUTSIDE RECORDS SUMMARY | 2024-10-20 09:01 | XMS_ITS | Clinical Summary ---
Author Organization [facility] Address [address] [place] [address] Care Team Providers Care Highballer Name Role Phone David Vazquez Primary Care Provider [phone] Allergies No known active allergies Medications atorvastatin [...] Planning 04/16/2024 Depression Screening 04/16/2024 Influenza Vaccination (#1) 2024 RSV Vaccines (1 - 1-dose 75+ series) 2025 Medical Devices Implanted Type Area Medical Illustrator Device Identifier Shelf Expiration Date Model / Serial / Lot Mis Ply Scr 6.5x50mm - [id number] Implanted:Qty : 1 on 01/30/2023 by Ivan Bartholomew MD at [facility] Screw N/A: Spine Lumbar [employer] [id number] / / Mis Ply Scr 6.5x45mm - [id number] Implanted:Qty : 3 on 01/30/2023 by Ivan Bartholomew MD at [facility] Screw N/A: Spine Lumbar [employer] [id number] / / Reline Mas Reduction Screw 7.5x45 - [id number] Implanted:Qty : 2 on 01/30/2023 by Ivan Bartholomew MD at [facility] Screw N/A: Spine Lumbar [employer] [id number] / / Grft Dbm Vesuvius Putty 5cc - [id number] Implanted:Qty : 1 on 01/30/2023 by Ivan Bartholomew MD at [facility] [employer] [id number] 04/20/2025 [id number] P / [id number] / Putty I-Factor 5.0cc - [id number] Implanted:Qty : 1 on 01/30/2023 by Ivan Bartholomew MD at [facility] N/A: Spine Lumbar [employer] 03/15/2025 [id number] / / [id number] Modulus Xlw [id number] 10 Degree - [id number] Implanted:Qty : 1 on 01/30/2023 by Ivan Bartholomew MD at [facility] N/A: Spine Lumbar [employer] [id number] / / [id number] Modulus Xlw [id number] - [id number] Implanted:Qty : 1 on 01/30/2023 by Ivan Bartholomew MD at [facility] N/A: Spine Lumbar [employer] 09/28/2027 [id number] / / [id number] Reln Lock Scr 5.5mm Opn Tulip - [id number] Implanted:Qty : 6 on 01/30/2023 by Ivan Bartholomew MD at [facility] N/A: Spine Lumbar [employer] [id number] / / Reln Mas Ti Petar 5.5x70mm - [id number] Implanted:Qty : 2 on 01/30/2023 by Ivan Bartholomew MD at [facility] N/A: Spine Lumbar [employer] [id number] / / Procedures Procedure Name Priority Date/Time [...] Hgb A1C 6.0(H) 4.0 - 5.6 % [facility] Comment: Reference Ranges for [...] Glycohemoglobin Standardization program (NGSP) and traceable to [facility] Estimated Average Glucose 126(H) 68 - 114 mg/dL [facility] Whole Blood (Blood) 01/24/2023 2:32 PM EDT 01/24/2023 6:00 PM EDT us Ivan Bartholomew MD CHEMISTRY ORDERABLES Fin al Result [facility] [address] * (ABNORMAL) BASIC METABOLIC PANEL (BMP=EP1) (01/24/2023 2:32 PM EDT) Sodium 141 135 - 146 mmol/L [facility] Potassium 4.8 3.5 - 5.1 mmol/L [facility] Chloride 107 98 - 110 mmol/L [facility] CO2 24 22 - 29 mmol/L [facility] Anion Gap 10 5 - 13 mmol/L [facility] Comment:Anion gap calculatio n does not include potassium (K+) value. BUN 17 7 - 25 mg/dL [facility] Creatinine 1.20 0.50 - 1.20 mg/dL [facility] Glucose 125(H) 71 - 99 mg/dL [facility] Comment:Reference range (71- 99 mg/dL) refers only to fasting samples, and does not apply to non-fasting samples. eGFR CKD-EPI 2020 48 See Note [facility] Comment: eGFR calculated with 2020 CKD-EPI equation using creatinine, patient's age and gender. Other factors, especially muscle mass, may affect accuracy and need to be considered. Patient values should be interpreted as a trend. The reference interval is >60 mL/min/1.73m2. Calcium 10.3 8.5 - 10.5 mg/dL [facility] BUN/Creatinine Ratio 14 [facility] Serum 01/24/2023 2:32 PM EDT 01/24/2023 5:54 PM EDT us Lexi SUAREZ CHEMISTRY ORDERABLES Final Resu lt [facility] [address] from Last 3 Months or Most Recently Relevant to Health Maintenance Insurance MEDICARE PART A [facility] [address] [address] [place] [address] ANTH Advance Directives For more information, please contact: [phone] * Full Code (Latest Code Status on File) Date Activated Date Inactivated Comments 01/30/2023 9:13 AM No automated chest compression devices for [facility] Patients Care Teams Highballer Relationship Specialty Start Date End Date David Vazquez [address] [place] [id number] PCP - General 01/24/23
--- OUTSIDE RECORDS SUMMARY | 2024-10-20 09:01 | XMS_ITS | Encounter Summary ---
Author Organization [facility] Address [address] [place] [address] Care Team Providers Care Marker Maker Name Role Phone Jevon Vazquez MD Primary Care Provider [phone] Encounter Details Date Type Department Care Team [...] Hematology/BMT and Cellular Therapy Program [address] [address] 10/29/2024 1:30 PM EDT Office Visit [facility] Hematology/BMT and Cellular Therapy Program [address] [phone] Zonia Hoffman, CERTIFIED VETERINARY TECHNICIAN 800 [facility] [address] [place] [address] 10/29/2024 3:00 PM EDT Appointment [facility] 2 [address] [place] [address] 10/30/2024 3:00 PM EDT Appointment [facility] 2 [address] [place] [address] 10/31/2024 3:00 PM EDT Appointment [facility] 2 [address] [place] [address] 11/01/2024 3:00 PM EDT Appointment [facility] 2 [address] [place] [address] 11/02/2024 3:00 PM EDT Appointment [facility] 2 [address] [place] [address] 2024 3:00 PM EDT Appointment [facility] 2 [address] [place] [address] 11/04/2024 3:00 PM EDT Appointment [facility] 2 [address] [place] [address] documented as of this encounter Visit Diagnoses Not on filedocumented in this encounter Additional Health Concerns Assessment Noted Time A fall risk assessment has been complete d for the patient 09/19/2024 8:38 AM EDT A Body Mass Index follow-up plan has been documented for the patient 05/28/2024 1:52 PM EST documented as of this encounter Care Teams Marker Maker Relationship Specialty Start Date End Date Jevon Vazquez MD [address] [place] [address] #1 #1 [place] [address] PCP - General 03/23/22 documented as of this encounter
--- OUTSIDE RECORDS SUMMARY | 2024-10-20 09:01 | XMS_ITS | Encounter Summary ---
Author Organization [facility] Address [address] [place] [address] Care Team Providers Care Hvac Service Tech Name Role Phone Jevon Vazquez MD Primary Care Provider [phone] Reason for Visit * Reason Comments Med Refill Encounter Details Date Type Department Care Team ([facility] Contact Info) Description 10/15/2024 Refill [facility] Hematology/BMT and Cellular Therapy Program [address] [phone] New Mckinney MD 800 [facility] [address] [place] [address] Social History Tobacco Use Types Packs/Day Years [...] Date Type Department Care Team ([facility] Contact Info) Description 10/29/2024 1:00 PM EDT Clinical Support [facility] Hematology/BMT and Cellular Therapy Program [address] [phone] 10/29/2024 1:30 PM EDT Office Visit [facility] Hematology/BMT and Cellular Therapy Program [address] [phone] Zonia Hoffman, PIPELINE INSPECTOR [address] [facility] [address] [place] [address] 10/29/2024 3:00 PM EDT Appointment [facility] 2 [address] [place] [address] 10/30/2024 3:00 PM EDT Appointment [facility] 2 [address] [place] [address] 10/31/2024 3:00 PM EDT Appointment [facility] 2 [address] [place] [address] 11/01/2024 3:00 PM EDT Appointment [facility] 2 [address] [place] [address] 11/02/2024 3:00 PM EDT Appointment [facility] 2 [address] [place] [address] 2024 3:00 PM EDT Appointment [facility] 2 [address] [place] [address] 11/04/2024 3:00 PM EDT Appointment [facility] 2 [address] [place] [address] documented as of this encounter Visit Diagnoses Not on filedocumented in this encounter Additional Health Concerns Assessment Noted Time A fall risk assessment has been complete d for the patient 09/30/2024 9:33 AM EDT A Body Mass Index follow-up plan has been documented for the patient 05/28/2024 1:52 PM EST documented as of this encounter Care Teams Hvac Service Tech Relationship Specialty Start Date End Date Jevon Vazquez MD [address] [place] [address] #1 #1 [place] [address] PCP - General 03/23/22 documented as of this encounter
--- OUTSIDE RECORDS SUMMARY | 2024-10-20 09:01 | XMS_ITS | Encounter Summary ---
Author Organization [facility] Address [address] [place] [address] Care Team Providers Care Campaign Fundraiser Name Role Phone Jevon Vazquez MD Primary Care Provider [phone] Encounter Details Date Type Department Care Team [...] Hematology/BMT and Cellular Therapy Program [address] [address] 10/29/2024 1:30 PM EDT Office Visit [facility] Hematology/BMT and Cellular Therapy Program [address] [address] Zonia Hoffman, RESPIRATORY ASSISTANT 800 [facility] [address] [place] [address] 10/29/2024 3:00 PM EDT Appointment [facility] 2 [address] [place] [address] 10/30/2024 3:00 PM EDT Appointment [facility] 2 [address] [place] [address] 10/31/2024 3:00 PM EDT Appointment [facility] 2 [address] [place] [address] 11/01/2024 3:00 PM EDT Appointment [facility] 2 [address] [place] [address] 11/02/2024 3:00 PM EDT Appointment [facility] 2 [address] [place] [address] 2024 3:00 PM EDT Appointment [facility] 2 [address] [place] [address] 11/04/2024 3:00 PM EDT Appointment [facility] 2 [address] [place] [address] documented as of this encounter Visit Diagnoses Not on filedocumented in this encounter Additional Health Concerns Assessment Noted Time A fall risk assessment has been complete d for the patient 09/19/2024 8:38 AM EDT A Body Mass Index follow-up plan has been documented for the patient 05/28/2024 1:52 PM EST documented as of this encounter Care Teams Campaign Fundraiser Relationship Specialty Start Date End Date Jevon Vazquez MD [address] [place] [address] #1 #1 [place] [address] PCP - General 03/23/22 documented as of this encounter
--- OUTSIDE RECORDS SUMMARY | 2024-10-20 09:01 | XMS_ITS | Encounter Summary ---
Author Organization Healthcare Address [address] [place] [address] Care Team Providers Care Audiology Assistant Name Role Phone Jevon Vazquez MD Primary Care Provider [phone] Encounter Details Date Type Department Care Team [...] Hematology/BMT and Cellular Therapy Program [address] [address] 10/29/2024 1:30 PM EDT Office Visit [facility] Hematology/BMT and Cellular Therapy Program [address] [address] Zonia Hoffman, TAX COMPLIANCE REPRESENTATIVE 800 [facility] [address] [place] [address] 10/29/2024 3:00 PM EDT Appointment [facility] [address] [place] [address] 10/30/2024 3:00 PM EDT Appointment [facility] 2 [address] [place] [address] 10/31/2024 3:00 PM EDT Appointment [facility] 2 [address] [place] [address] 11/01/2024 3:00 PM EDT Appointment [facility] 2 [address] [place] [address] 11/02/2024 3:00 PM EDT Appointment [facility] 2 [address] [place] [address] 2024 3:00 PM EDT Appointment [facility] 2 [address] [place] [address] 11/04/2024 3:00 PM EDT Appointment [facility] 2 [address] [place] [address] documented as of this encounter Visit Diagnoses Not on filedocumented in this encounter Additional Health Concerns Assessment Noted Time A fall risk assessment has been complete d for the patient 09/19/2024 8:38 AM EDT A Body Mass Index follow-up plan has been documented for the patient 05/28/2024 1:52 PM EST documented as of this encounter Care Teams Audiology Assistant Relationship Specialty Start Date End Date Jevon Vazquez MD [address] [place] [address] #1 [address]1 [place] [address] PCP - General 03/23/22 documented as of this encounter
--- OUTSIDE RECORDS SUMMARY | 2024-10-20 09:01 | XMS_ITS | Encounter Summary ---
Author Organization Healthcare Address [address] [place] [address] Care Team Providers Care Senior Administrator Support Name Role Phone Jevon Vazquez MD Primary Care Provider [phone] Encounter Details Date Type Department Care Team ([facility] st Contact Info) Description 10/13/2024 Telephone [facility] Hematology/BMT and Cellular Therapy Program [address] [address] Zonia [place], SUPERVISOR MATRIX 800 [facility] [address] [place] [address] Social History Tobacco Use Types Packs/Day Years [...] Telephone Encounter - 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, RN - 10/13/2024 3:56 PM EDT RN spoke with pt and reviewed labs and updated schedule. She verbalized understanding. * Telephone Encounter - Elizabet Paz - 10/13/2024 10:44 AM EDT Patient calling because her labs were not up to pair for treatment. Patient stated that treatment needs to be delayed again Callback number: [phone] documented in this encounter Plan of Treatment Upcoming Encounters Date Type Department Care Team ([facility] st Contact Info) Description 10/29/2024 1:00 PM EDT Clinical Support [facility] Hematology/BMT and Cellular Therapy Program [address] [address] 10/29/2024 1:30 PM EDT Office Visit [facility] Hematology/BMT and Cellular Therapy Program [address] [address] Zonia Hoffman, SUPERVISOR MATRIX 800 [facility] [address] [place] [address] 10/29/2024 3:00 PM EDT Appointment [facility] 2 [address] [place] [address] 10/30/2024 3:00 PM EDT Appointment [facility] 2 [address] [place] [address] 10/31/2024 3:00 PM EDT Appointment [facility] 2 [address] [place] [address] 11/01/2024 3:00 PM EDT Appointment [facility] 2 [address] [place] [address] 11/02/2024 3:00 PM EDT Appointment [facility] 2 [address] [place] [address] 2024 3:00 PM EDT Appointment [facility] 2 [address] [place] [address] 11/04/2024 3:00 PM EDT Appointment [facility] 2 [address] [place] [address] documented as of this encounter Visit Diagnoses Not on filedocumented in this encounter Additional Health Concerns Assessment Noted Time A fall risk assessment has been complete d for the patient 09/30/2024 9:33 AM EDT A Body Mass Index follow-up plan has been documented for the patient 05/28/2024 1:52 PM EST documented as of this encounter Care Teams Senior Administrator Support Relationship Specialty Start Date End Date Jevon Vazquez MD [address] [place] [address] #1 #1 [place] [address] PCP - General 03/23/22 documented as of this encounter
--- OUTSIDE RECORDS SUMMARY | 2024-10-20 09:01 | XMS_ITS | Encounter Summary ---
Author Organization Healthcare Address [address] [place] [address] Care Team Providers Care Leaf Tier Name Role Phone Jevon Vazquez MD Primary Care Provider [phone] Encounter Details Date Type Department Care Team [...] Hematology/BMT and Cellular Therapy Program [address] [address] 10/29/2024 1:30 PM EDT Office Visit [facility] Hematology/BMT and Cellular Therapy Program [address] [address] Zonia Hoffman, SALVAGE MECHANIC 800 [facility] [address] [place] [address] 10/29/2024 3:00 PM EDT Appointment [facility] 2 [address] [place] [address] 10/30/2024 3:00 PM EDT Appointment [facility] 2 [address] [place] [address] 10/31/2024 3:00 PM EDT Appointment [facility] 2 [address] [place] [address] 11/01/2024 3:00 PM EDT Appointment [facility] 2 [address] [place] [address] 11/02/2024 3:00 PM EDT Appointment [facility] 2 [address] [place] [address] 2024 3:00 PM EDT Appointment [facility] 2 [address] [place] [address] 11/04/2024 3:00 PM EDT Appointment [facility] 2 [address] [place] [address] documented as of this encounter Visit Diagnoses Not on filedocumented in this encounter Additional Health Concerns Assessment Noted Time A fall risk assessment has been complete d for the patient 09/30/2024 9:33 AM EDT A Body Mass Index follow-up plan has been documented for the patient 05/28/2024 1:52 PM EST documented as of this encounter Care Teams Leaf Tier Relationship Specialty Start Date End Date Jevon Vazquez MD [address] [place] [address] #1 [address]1 [place] [address] PCP - General 03/23/22 documented as of this encounter
--- OUTSIDE RECORDS SUMMARY | 2024-10-20 09:01 | XMS_ITS | Encounter Summary ---
Author Organization Healthcare Address [address] [place] [address] Care Team Providers Care Aviation Operations Specialist Name Role Phone Jevon Vazquez MD Primary Care Provider [phone] Encounter Details Date Type Department Care Team [...] Hematology/BMT and Cellular Therapy Program [address] [address] 10/29/2024 1:30 PM EDT Office Visit [facility] Hematology/BMT and Cellular Therapy Program [address] [address] Zonia [place], LINER MACHINE OPERATOR HELPER 800 [facility] [address] [place] [address] 10/29/2024 3:00 PM EDT Appointment [facility] 2 [address] [place] [address] 10/30/2024 3:00 PM EDT Appointment [facility] 2 [address] [place] [address] 10/31/2024 3:00 PM EDT Appointment [facility] 2 [address] [place] [address] 11/01/2024 3:00 PM EDT Appointment [facility] 2 [address] [place] [address] 11/02/2024 3:00 PM EDT Appointment [facility] 2 [address] [place] [address] 2024 3:00 PM EDT Appointment [facility] 2 [address] [place] [address] 11/04/2024 3:00 PM EDT Appointment [facility] 2 [address] [place] [address] documented as of this encounter Visit Diagnoses Not on filedocumented in this encounter Additional Health Concerns Assessment Noted Time A fall risk assessment has been complete d for the patient 09/30/2024 9:33 AM EDT A Body Mass Index follow-up plan has been documented for the patient 05/28/2024 1:52 PM EST documented as of this encounter Care Teams Aviation Operations Specialist Relationship Specialty Start Date End Date Jevon Vazquez MD [address] [place] [address] #1 [address]1 [place] [address] PCP - General 03/23/22 documented as of this encounter
--- OUTSIDE RECORDS SUMMARY | 2024-10-20 09:01 | XMS_ITS | Encounter Summary ---
Author Organization Healthcare Address [address] [place] [address] Care Team Providers Care Plumbing Manager Name Role Phone Jevon Vazquez MD Primary Care Provider [phone] Encounter Details Date Type Department Care Team [...] Hematology/BMT and Cellular Therapy Program [address] [address] 10/29/2024 1:30 PM EDT Office Visit [facility] Hematology/BMT and Cellular Therapy Program [address] [address] Zonia Hfofman, MARKETING TRAFFIC COORDINATOR 800 [facility] [address] [place] [address] 10/29/2024 3:00 PM EDT Appointment [facility] 2 [address] [place] [address] 10/30/2024 3:00 PM EDT Appointment [facility] 2 [address] [place] [address] 10/31/2024 3:00 PM EDT Appointment [facility] 2 [address] [place] [address] 11/01/2024 3:00 PM EDT Appointment [facility] 2 [address] [place] [address] 11/02/2024 3:00 PM EDT Appointment [facility] 2 [address] [place] [address] 2024 3:00 PM EDT Appointment [facility] 2 [address] [place] [address] 11/04/2024 3:00 PM EDT Appointment [facility] 2 [address] [place] [address] documented as of this encounter Visit Diagnoses Not on filedocumented in this encounter Additional Health Concerns Assessment Noted Time A fall risk assessment has been complete d for the patient 09/19/2024 8:38 AM EDT A Body Mass Index follow-up plan has been documented for the patient 05/28/2024 1:52 PM EST documented as of this encounter Care Teams Plumbing Manager Relationship Specialty Start Date End Date Jevon Vazquez MD [address] [place] [address] #1 [address]1 [place] [address] PCP - General 03/23/22 documented as of this encounter
--- OUTSIDE RECORDS SUMMARY | 2024-10-20 09:01 | XMS_ITS | Encounter Summary ---
Author Organization [facility] Address [address] [place] [address] Care Team Providers Care Robotics Engineer Name Role Phone Jevon Vazquez MD Primary Care Provider [phone] Encounter Details Date Type Department Care Team ([facility] Contact Info) Description 10/08/2024 Orders Only [facility] Hematology/BMT and Cellular Therapy Program [address] [address] 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, RN [facility] HEMATOLOG[facility] PRO[facility] CLINIC Acute [...] Hematology/BMT and Cellular Therapy Program [address] [address] 10/29/2024 1:30 PM EDT Office Visit [facility] Hematology/BMT and Cellular Therapy Program [address] [address] Zonia [place], BOILER INSTALLER 800 [facility] [address] [place] [address] 10/29/2024 3:00 PM EDT Appointment [facility] 2 [address] [place] [address] 10/30/2024 3:00 PM EDT Appointment [facility] 2 [address] [place] [address] 10/31/2024 3:00 PM EDT Appointment [facility] 2 [address] [place] [address] 11/01/2024 3:00 PM EDT Appointment [facility] 2 [address] [place] [address] 11/02/2024 3:00 PM EDT Appointment [facility] 2 [address] [place] [address] 2024 3:00 PM EDT Appointment [facility] 2 [address] [place] [address] 11/04/2024 3:00 PM EDT Appointment [facility] 2 [address] [place] [address] Scheduled Orders Name Type Priority Associated Diagnoses [...] documented as of this encounter Care Teams Robotics Engineer Relationship Specialty Start Date End Date Jevon Vazquez MD [address] [place] [address] #1 #1 [place] [address] PCP - General 03/23/22 documented as of this encounter
--- OUTSIDE RECORDS SUMMARY | 2024-10-20 09:01 | XMS_ITS | Encounter Summary ---
Author Organization Healthcare Address [address] [place] [address] Care Team Providers Care Cooker Meal Name Role Phone Jevon Vazquez MD Primary Care Provider [phone] Encounter Details Date Type Department Care Team [...] Hematology/BMT and Cellular Therapy Program [address] [address] 10/29/2024 1:30 PM EDT Office Visit [facility] Hematology/BMT and Cellular Therapy Program [address] [address] Zonia [place], DRUMS TEACHER 800 [facility] [address] [place] [address] 10/29/2024 3:00 PM EDT Appointment [facility] 2 [address] [place] [address] 10/30/2024 3:00 PM EDT Appointment [facility] 2 [address] [place] [address] 10/31/2024 3:00 PM EDT Appointment [facility] 2 [address] [place] [address] 11/01/2024 3:00 PM EDT Appointment [facility] 2 [address] [place] [address] 11/02/2024 3:00 PM EDT Appointment [facility] 2 [address] [place] [address] 2024 3:00 PM EDT Appointment [facility] 2 [address] [place] [address] 11/04/2024 3:00 PM EDT Appointment [facility] 2 [address] [place] [address] documented as of this encounter Visit Diagnoses Not on filedocumented in this encounter Additional Health Concerns Assessment Noted Time A fall risk assessment has been complete d for the patient 09/19/2024 8:38 AM EDT A Body Mass Index follow-up plan has been documented for the patient 05/28/2024 1:52 PM EST documented as of this encounter Care Teams Cooker Meal Relationship Specialty Start Date End Date Jevon Vazquez MD [address] [place] [address] #1 [address]1 [place] [address] PCP - General 03/23/22 documented as of this encounter
--- OUTSIDE RECORDS SUMMARY | 2024-10-20 09:01 | XMS_ITS | Encounter Summary ---
Author Organization Healthcare Address [address] [place] [address] Care Team Providers Care Shuttle Car Operator Name Role Phone Jevon Vazquez MD Primary Care Provider [phone] Encounter Details Date Type Department Care Team [...] Hematology/BMT and Cellular Therapy Program [address] [address] 10/29/2024 1:30 PM EDT Office Visit [facility] Hematology/BMT and Cellular Therapy Program [address] [address] Zonia [place], SYSTEMS DESIGN ENGINEER 800 [facility] [address] [place] [address] 10/29/2024 3:00 PM EDT Appointment [facility] 2 [address] [place] [address] 10/30/2024 3:00 PM EDT Appointment [facility] 2 [address] [place] [address] 10/31/2024 3:00 PM EDT Appointment [facility] 2 [address] [place] [address] 11/01/2024 3:00 PM EDT Appointment [facility] 2 [address] [place] [address] 11/02/2024 3:00 PM EDT Appointment [facility] 2 [address] [place] [address] 2024 3:00 PM EDT Appointment [facility] 2 [address] [place] [address] 11/04/2024 3:00 PM EDT Appointment [facility] 2 [address] [place] [address] documented as of this encounter Visit Diagnoses Not on filedocumented in this encounter Additional Health Concerns Assessment Noted Time A fall risk assessment has been complete d for the patient 09/19/2024 8:38 AM EDT A Body Mass Index follow-up plan has been documented for the patient 05/28/2024 1:52 PM EST documented as of this encounter Care Teams Shuttle Car Operator Relationship Specialty Start Date End Date Jevon Vazquez MD [address] [place] [address] #1 [address]1 [place] [address] PCP - General 03/23/22 documented as of this encounter
--- OUTSIDE RECORDS SUMMARY | 2024-10-20 09:01 | XMS_ITS | Clinical Summary ---
Author Organization [facility] Address [address] [place] [address] Phone Care Team Providers Care Detective Homicide Squad Name Role Phone Jevon Vazquez MD Primary Care Provider [phone] Allergies Active Allergy Reactions Criticality Noted Date [...] L4-5 LAMINECTOMY; Surgeon: Ivan Bartholomew MD; Location: [facility] MAIN OR; Service: Spine Medical [...] 5.6 % 11/14/2022 2:57 PM EDT PREFERRED [employer], Kiddy Est. Avg Glucose 148 mg/dL 11/14/2022 2:57 PM EDT [email or web address], [facility] Blood VENOUS BLOOD / Unknown Venipuncture / Unknown 11/11/2022 3:46 PM EDT 11/11/2022 3:55 PM EDT Narrative [facility] [employer] [facility] - 11/14/2022 2:57 PM EDT REFERENCE [...] CHEMISTRY ORDERABLES Final R esult [facility] [employer] [facility] [address] [facility] , [place] [address] * (ABNORMAL) BASIC METABOLIC PANEL (11/11/2022 3:46 PM EDT) Sodium 136 136 - 145 mmol/L 11/11/2022 4:11 PM EDT [facility] Potassium 3.8 3.5 - 5.0 mmol/L 11/11/2022 4:11 PM EDT [facility] Chloride 102 98 - 107 mmol/L 11/11/2022 4:11 PM EDT [facility] Total CO2 24 22 - 29 mmol/L 11/11/2022 4:11 PM EDT [facility] Anion Gap 10 7 - 16 mmol/L 11/11/2022 4:11 PM EDT [facility] Calcium 10.1 8.8 - 10.4 mg/dL 11/11/2022 4:11 PM EDT [facility] Glucose Lvl 147(H) 82 - 100 mg/dL 11/11/2022 4:11 PM EDT [facility] BUN 15 8 - 23 mg/dL 11/11/2022 4:11 PM EDT [facility] Creatinine 0.82 0.51 - 1.30 mg/dL 11/11/2022 4:11 PM EDT [facility] eGFR (CKD-EPIcr 2020) 76 >=60 mL/min/1.7 3 m2 11/11/2022 4:11 PM EDT [facility] Comment:Estimated GFR was ca lculated using the CKD-EPIcr (2020) equation refit without race. The equation is recommended by the National Kidney Foundation - [employer] Neph[employer] Task Force. Blood VENOUS BLOOD / Unknown Venipuncture / Unknown 11/11/2022 3:46 PM EDT 11/11/2022 3:54 PM EDT us Leona Hanna DO CHEMISTRY ORDERABLES Final Res ult [facility] [address] [place] [address] * DX BONE DENSITY AXIAL SKELETON (07/25/2022 9:14 AM EDT) Anatomical Region Laterality Modality Dexa Scan 07/25/2022 Narrative 07/25/2022 3:45 PM EDT Indication: The patient is a female age 65 or older who requires a bone density assessment. Study was performed on SaaSMAX 5. Bone Density: Region BMD T-score Z-score [...] Most Recently Relevant to Health Maintenance [place] [address] [place] [address] MEDICARE SUPPLEMENT MEDICARE [place] PART A AND B Member Subscriber Plan / Payer (Ef fective 2016-Present) Name:Ashly Hernández Member ID:[id number] Relation to Subscriber:Self Name:Ashly Hernández Subscriber ID:[id number] Payer ID:Not on file Group ID:Not on file Type:Not on file Address: [address] MEDICARE SUPPLE[place]ARE [place] PART A & [place] [phone] MEDICARE [place] PART A AND B Member Subscriber Plan / Payer (Ef fective 2016-Present) Name:Ashly Hernández Member ID:[id number] Relation to Subscriber:Self Name:Ashly Hernández Subscriber ID:[id number] Payer ID:Not on file Group ID:Not on file Type:Not on file Address: [address] MEDICARE SUPPLEMENT [employer] MEDICARE [place] PART A AND B [address] MEDICARE SUPPLEMENT Advance Directives For more information, please contact: [phone] * Full Code (Latest Code Status on File) Date Activated Date Inactivated Comments 11/14/2022 6:53 PM 11/16/2022 7:37 PM * Full Code Date Activated Date Inactivated Comments 11/12/2022 5:17 AM 11/14/2022 6:47 PM Care Teams Detective Homicide Squad Relationship Specialty Start Date End Date Jevon Vazquez MD [address] [place] [address] PCP - General Family Medicine 11/10/22
--- OUTSIDE RECORDS SUMMARY | 2024-10-20 09:01 | XMS_ITS | Encounter Summary ---
Author Organization Healthcare Address [address] [place] [address] Care Team Providers Care Rn Behavioral Health Name Role Phone Jevon Vazquez MD Primary Care Provider [phone] Encounter Details Date Type Department Care Team [...] Hematology/BMT and Cellular Therapy Program [address] [address] 10/29/2024 1:30 PM EDT Office Visit [facility] Hematology/BMT and Cellular Therapy Program [address] [address] Zonia [place], BREAKER MACHINE TENDER 800 [facility] [address] [place] [address] 10/29/2024 3:00 PM EDT Appointment [facility] 2 [address] [place] [address] 10/30/2024 3:00 PM EDT Appointment [facility] 2 [address] [place] [address] 10/31/2024 3:00 PM EDT Appointment [facility] 2 [address] [place] [address] 11/01/2024 3:00 PM EDT Appointment [facility] 2 [address] [place] [address] 11/02/2024 3:00 PM EDT Appointment [facility] 2 [address] [place] [address] 2024 3:00 PM EDT Appointment [facility] 2 [address] [place] [address] 11/04/2024 3:00 PM EDT Appointment [facility] 2 [address] [place] [address] documented as of this encounter Visit Diagnoses Not on filedocumented in this encounter Additional Health Concerns Assessment Noted Time A fall risk assessment has been complete d for the patient 09/30/2024 9:33 AM EDT A Body Mass Index follow-up plan has been documented for the patient 05/28/2024 1:52 PM EST documented as of this encounter Care Teams Rn Behavioral Health Relationship Specialty Start Date End Date Jevon Vazquez MD [address] [place] [address] #1 [address] [place] [address] PCP - General 03/23/22 documented as of this encounter
--- OUTSIDE RECORDS SUMMARY | 2024-10-20 09:01 | XMS_ITS | Encounter Summary ---
Author Organization Healthcare Address [address] [place] [address] Care Team Providers Care Assistant Professor Of Dietetics Name Role Phone Jevon Vazquez MD Primary Care Provider [phone] Encounter Details Date Type Department Care Team ([facility] st Contact Info) Description 09/01/2024 Telephone [facility] Hematology/BMT and Cellular Therapy Program [address] [address] Zonia [place], CONVENTION SERVICES MANAGER 800 [facility] [address] [place] [address] Social History Tobacco Use Types Packs/Day Years [...] told her to cancel. Please confirm Callback number:[phone] documented in this encounter Plan of Treatment Upcoming Encounters Date Type Department Care Team (Late st Contact Info) Description 10/29/2024 1:00 PM EDT Clinical Support PAV Hematology/BMT and Cellular Therapy Program [address] [address] 10/29/2024 1:30 PM EDT Office Visit PAV Hematology/BMT and Cellular Therapy Program [address] [address] Zonia [place], CONVENTION SERVICES MANAGER 800 [facility] [address] [place] [address] 10/29/2024 3:00 PM EDT Appointment [facility] 2 [address] [place] [address] 10/30/2024 3:00 PM EDT Appointment [facility] 2 [address] [place] [address] 10/31/2024 3:00 PM EDT Appointment [facility] 2 [address] [place] [address] 11/01/2024 3:00 PM EDT Appointment [facility] 2 [address] [place] [address] 11/02/2024 3:00 PM EDT Appointment [facility] 2 [address] [place] [address] 2024 3:00 PM EDT Appointment [facility] 2 [address] [place] [address] 11/04/2024 3:00 PM EDT Appointment [facility] 2 [address] [place] [address] documented as of this encounter Visit Diagnoses Not on filedocumented in this encounter Additional Health Concerns Assessment Noted Time A fall risk assessment has been complete d for the patient 07/30/2024 8:29 AM EDT A Body Mass Index follow-up plan has been documented for the patient 05/28/2024 1:52 PM EST documented as of this encounter Care Teams Assistant Professor Of Dietetics Relationship Specialty Start Date End Date Jevon Vazquez MD [address] [place] [address] #1 #1 [place] [address] PCP - General 03/23/22 documented as of this encounter
--- OUTSIDE RECORDS SUMMARY | 2024-10-20 09:01 | XMS_ITS | Encounter Summary ---
Author Organization [facility] Address [address] [place] [address] Care Team Providers Care Inspector Fibrous Wallboard Name Role Phone Jevon Vazquez MD Primary Care Provider [phone] Reason for Visit * Reason Comments Med Refill Encounter Details Date Type Department Care Team ([facility] Contact Info) Description 10/14/2024 Refill [facility] Hematology/BMT and Cellular Therapy Program [address] [phone] New Mckinney MD 800 [facility] [address] [place] [phone] Social History Tobacco Use Types Packs/Day Years [...] ([facility] Contact Info) Description 10/29/2024 1:00 PM EDT Clinical Support [facility] Hematology/BMT and Cellular Therapy Program [address] [phone] 10/29/2024 1:30 PM EDT Office Visit [facility] Hematology/BMT and Cellular Therapy Program [address] [phone] Zonia Hoffman, INTERNATIONAL ACCOUNT EXECUTIVE [address] [facility] [address] [place] [address] 10/29/2024 3:00 PM EDT Appointment [facility] 2 [address] [place] [address] 10/30/2024 3:00 PM EDT Appointment [facility] 2 [address] [place] [address] 10/31/2024 3:00 PM EDT Appointment [facility] 2 [address] [place] [address] 11/01/2024 3:00 PM EDT Appointment [facility] 2 [address] [place] [address] 11/02/2024 3:00 PM EDT Appointment [facility] 2 [address] [place] [address] 2024 3:00 PM EDT Appointment [facility] 2 [address] [place] [address] 11/04/2024 3:00 PM EDT Appointment [facility] 2 [address] [place] [address] documented as of this encounter Visit Diagnoses Not on filedocumented in this encounter Additional Health Concerns Assessment Noted Time A fall risk assessment has been complete d for the patient 09/30/2024 9:33 AM EDT A Body Mass Index follow-up plan has been documented for the patient 05/28/2024 1:52 PM EST documented as of this encounter Care Teams Inspector Fibrous Wallboard Relationship Specialty Start Date End Date Jevon Vazquez MD [address] [place] [address] #1 #1 [place] [address] PCP - General 03/23/22 documented as of this encounter
--- OUTSIDE RECORDS SUMMARY | 2024-10-20 09:01 | XMS_ITS | Clinical Summary ---
Author Organization [facility] Address [address] [place] [address] Care Team Providers Care Labor Crew Supervisor Name Role Phone Jevon Vazquez MD Primary Care Provider [phone] Allergies No known active allergies Medications amLODIPine [...] Additional Information Patient not taking.Reported on 09/30/2024 acyclovir (Zovirax) 800 MG tabletIndicati ons:Acute myeloid [...] twice daily 60 tablet 10/15/19 25 Active rosuvastatin (Crestor) 5 MG tablet TAKE 1 TABLET BY MOUTH ONCE DAILY AT NIGHT 90 tablet 10/16/19 25 Active rosuvastatin (Crestor) 5 MG tablet TAKE 1 TABLET BY MOUTH ONCE DAILY AT NIGHT 30 tablet 2 07/23/19 25 025 Discontinued potassium chloride CR (K-Tab) 20 MEQ ER tablet Take 1 tablet by mouth twice daily 60 tablet 09/13/19 25 025 Discontinued Active Problems Problem Noted Date Diagnosed Date 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 Encounters Date Type Department Care Team Description 10/15/2024 Refill [facility] Hematology/BMT and Cellular Therapy Program [address] [place] [phone] New Mckinney MD 10/14/2024 Refill [facility] Hematology/BMT and Cellular Therapy Program [address] [place] [phone] New Mckinney MD 10/13/2024 Telephone [facility] Hematology/BMT and Cellular Therapy Program [address] [place] [phone] Zonia Hoffman, RODDY 10/13/2024 Travel 10/12/2024 Travel 10/11/2024 Travel 10/09/2024 Travel 10/08/2024 Travel 10/08/2024 Orders Only [facility] Hematology/BMT and Cellular Therapy Program [address] [place] [phone] 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, aquatics assistant department head 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) 10/07/2024 Travel 09/30/2024 9:30 AM EDT Office Visit [facility] Hematology/BMT and Cellular Therapy Program 750 [facility], [address] [place] [address] [place] [address] Zonia Hoffman APRN 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) 09/30/2024 9:00 AM EDT Clinical Support [facility] Hematology/BMT and Cellular Therapy Program 750 [facility], [address] [place] [phone] Jyoti Kemp 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) 09/30/2024 Telephone [facility] Hematology/BMT and Cellular Therapy Program 750 [facility], [address] [place] [phone] Zoraida Good RN 09/30/2024 Travel 09/29/2024 Travel 09/28/2024 Travel 09/27/2024 Travel 09/26/2024 Travel 09/25/2024 Travel 09/24/2024 Travel 09/23/2024 Travel 09/19/2024 12:00 PM EDT Procedure Visit [facility] Hematology/BMT and Cellular Therapy Program [address] [phone] Lexi Ferraro APRN 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) 09/19/2024 9:30 AM EDT Clinical Support [facility] 800 [facility], [address]nd [place] [phone] 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) 09/19/2024 7:30 AM EDT Clinical Support [facility] Hematology/BMT and Cellular Therapy Program [address] [phone] 09/19/2024 Telephone [facility] Hematology/BMT and Cellular Therapy Program [address] [phone] Romana Richmond RN 09/19/2024 Orders Only [facility] Hematology/BMT and Cellular Therapy Program 750 [facility], [address] [place] [address], [place] [phone] 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, RN 09/19/2024 Travel 09/15/2024 Telephone [facility] Hematology/BMT and Cellular Therapy Program 750 [facility], [address] [place] [address] [place] [phone] Zonia Hoffman, CURRICULUM ASSISTANT 09/15/2024 Travel 09/14/2024 Travel 09/13/2024 Travel 09/12/2024 Travel 09/12/2024 Refill [facility] Hematology/BMT and Cellular Therapy Program 750 [facility], [address] [place] [address] [place] [phone] New Mckinney MD 09/11/2024 Travel 09/10/2024 Travel 09/01/2024 Telephone [facility] Hematology/BMT and Cellular Therapy Program 750 [facility], [address] [place] [address] [place] [phone] Zonia Hoffman, CURRICULUM ASSISTANT 08/31/2024 Travel 08/30/2024 Travel 08/18/2024 Telephone [facility] Hematology/BMT and Cellular Therapy Program 750 [facility], [address] [place] [address] [place] [address] Romana Gorman, CURRICULUM ASSISTANT 08/17/2024 Travel 08/16/2024 Travel 08/15/2024 Travel 08/13/2024 Travel 07/30/2024 8:30 AM EDT Office Visit [facility] Hematology/BMT and Cellular Therapy Program 750 [facility], [address] [place] [address] [place] [phone] Zonia Hoffman, CURRICULUM ASSISTANT Pancytopenia (Primary Dx) 07/30/2024 8:00 AM EDT Clinical Support [facility] Hematology/BMT and Cellular Therapy Program 750 [facility], [address] [place] [address] [place] [phone] Pancytopenia 07/30/2024 Telephone [facility] Hematology/BMT and Cellular Therapy Program 750 [facility], [address] [place] [address] [place] [phone] Romana Richmond RN 07/30/2024 Refill [facility] Hematology/BMT and Cellular Therapy Program 750 [facility], [address] [place] [address] Daxa Elliott aquatics assistant department head 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); Immunosuppressed status (CMS/HCC) 07/30/2024 Travel 07/29/2024 Travel 07/28/2024 Travel 07/27/2024 Travel 07/26/2024 Travel 07/24/2024 Travel 07/23/2024 Travel from Last 3 Months Immunizations Immunization [...] Hematology/BMT and Cellular Therapy Program [address] [place] [address] 10/29/2024 1:30 PM EDT Office Visit [facility] Hematology/BMT and Cellular Therapy Program 750 [facility], [facility] [place] [address] Zonia Hoffman, CURRICULUM ASSISTANT 800 [facility] [address] [place] [address] 10/29/2024 3:00 PM EDT Appointment [facility] 2 [address] [place] [address] 10/30/2024 3:00 PM EDT Appointment [facility] 2 [address] [place] [address] 10/31/2024 3:00 PM EDT Appointment [facility] 2 [address] [place] [address] 11/01/2024 3:00 PM EDT Appointment [facility] 2 [address] [place] [address] 11/02/2024 3:00 PM EDT Appointment [facility] 2 [address] [place] [address] 2024 3:00 PM EDT Appointment [facility] 2 [address] [place] [address] 11/04/2024 3:00 PM EDT Appointment [facility] 2 [address] [place] [address] Health Maintenance Due Date Last Done Comments [...] UKY-Zoster Vaccines (1 of 2) 05/16/2023 03/21/2023 [id number]-ARKLV-25 Vaccine (4 - season) 2023 02/18/2021, 07/10/2020, [...] this topic Medical Devices Implanted Type Area Senior Process Engineer Device Identifier Shelf Expiration Date Model / Serial / Lot Port Clearvue Power 8fr - [id number] Implanted:Qty: 1 on 01/21/2024 by Ness Sargent MD at [facility] Peripherial [id number] / / Procedures Procedure Name Priority Date/Time [...] DIFFERENTIAL Routine 07/30/2024 8:14 AM EDT Pancytopenia HEPATITIS C ANTIBODY W/REFLEX TO HCV QUANT [...] [facility] [address] [place] [address] * (ABNORMAL) Comprehensive Metabolic Panel, Plasma (09/30/2024 9:11 AM EDT) Only the most recent of2 [...] ult [facility] [address] [place] [address] * BIOPSY BONE MARROW (09/19/2024 12:00 PM [...] to surronding structures. Alternatives discussed: Delayed treatment [place] protocol: Procedure explained and questions answered to [...] LAB HEMATOLOGY METHOD 09/19/2024 10:19 AM EDT [facility] Blood Blood sample taken from central line / Unknown (Port) Long-term Catheter / Unknown 09/19/2024 10:04 AM EDT 09/19/2024 10:18 AM EDT New Mckinney MD LAB BLOOD ORDERABLES Final Re sult Performing Organization Address City/[facility] Co de Phone Number HEALTHCARE LAB [address] [place] [address] * Transfuse platelets, Irradiated (09/19/2024 10:02 AM EDT) Lexi Ferraro APRN BLOOD TRANSFUSION ORDERABL ES Final Result * Prepare Leukocyte Reduced Platelets (09/19/2024 9:08 AM EDT) Product Code Q1290Z03 CH BLOO D BANK Dispense Status Transfused BLOOD BANK Blood Expiration Date [id number] BLOOD BANK Unit Number [id number] CH B LOOD BANK Product Blood Type 6200 BLOOD BANK Blood Type A+ BLOOD BANK Result [facility] Provider Not In System BLOOD BANK PRODUCT ORD ERABLES Final Result Performing Organization Address [facility] Co de Phone Number BLOOD BANK [address] [place] [address], * Myeloid Focused Panel, 50 gene (09/19/2024 7:29 AM EDT) Interpretation The following two (2) genes, TP53 and DNMT3A, with persistent variants have been detected in this bone marrow specimen. The variant, p.[id number], in TP53 gene and the variant, p.[id number], in the RUNX 1 gene are not detectable at current cutoff and coverage established in this lab. Gene: TP53 Mutation: c.814G>A; p.Zmo944Cxr Allele Frequency (%): 37% (45% Dec 2023) ID: [id number] Gene: DNMT3A Mutation: c.1522delC; p.[id number] 3 Allele Frequency (%): 36% (48% Dec 2023) Additional Details on Mutation Identified: Gene Transcript Genome Chrom Coordinate RefVar DNMT3A [id number] Hg19 2 [id number] delC TP53 [id number] Hg19 17 [id number] G>A 09/29/2024 4:05 PM EDT [facility] Methodology The following 50 genes [...] then sequenced on the Illumina NextSeq 2000 ([employer], [place]). A custom bioinformatics pipeline aligns [...] of hematologic malignancies. 09/29/2024 4:05 PM EDT [facility] Disclaimer This test was developed and its performance characteristics determined by the Clinical Molecular and Genomic Pathology Laboratory at the [facility]. It has not been cleared or approved [...] clinical laboratory testing. 09/29/2024 4:05 PM EDT [facility] Pathologist Signature Reviewed by: Corey Tejada 09/29/2024 4:05 PM EDT [facility] Bone Marrow Specimen from bone marrow obtained by aspiration / Unknown Non-blood Collection / Unknown 09/19/2024 7:29 AM EDT 09/19/2024 12:03 PM EDT us New Mckinney MD LAB MOLECULAR DIAGNOSTICS ORD ERABLES Final Result Performing Organization Address City/State/[facility] Co de Phone Number [facility] [address] * Chromosome Karyotype, Oncology (09/19/2024 7:29 AM EDT) Specimen Type Bone Marrow 09/24/2024 2:37 PM EDT [facility] Clinical Indication Myelodysplastic Syndrome 09/24/2024 2:37 PM EDT [facility] Specimen Adequacy Adequate 025 2:37 PM EDT [facility] Chromosome Analysis Result Giemsa-banded metaphase cells from unstimulated bone marrow cultures showed a 46,XX[20] chromosome pattern. 09/24/2024 2:37 PM EDT [facility] Interpretation Normal female chromosome analysis. No clonal abnormalities were detected at current resolution. Clinical correlation is recommended. # cells counted = 20 # cells analyzed = 20 # cells karyotyped = 2 Band resolution: 450-525 09/24/2024 2:37 PM EDT [facility] Pathologist Signature Reviewed by: Corey Tejada 09/24/2024 2:37 PM EDT [facility] Bone Marrow Non-blood Collection / Unknown 09/19/2024 7:29 AM EDT 09/19/2024 12:35 PM EDT us New Mckinney MD LAB CYTOGENETICS ORDERABLES F inal Result [facility] [address] [place] [address] * Leukemia/Lymphoma - Immunophenotyping by Flow Cytometry (09/19/2024 7:29 AM EDT) Clinical Indication AML 09/22/2024 10:29 AM EDT [facility] Flow Cytometry Interpretation A. BONE MARROW FOR FLOW CYTOMETRY: - MIXED MARROW ELEMENTS WITH NO EVIDENCE OF INCREASED BLASTS OR ABNORMAL LYMPHOID POPULATIONS, SEE COMMENT. 09/22/2024 10:29 AM EDT [facility] Comments CD45/side scatter analysis [...] surface light chains 09/22/2024 10:29 AM EDT [facility] Disclaimer This test was developed and its performance characteristics determined by the Immuno-Molecular Pathology Laboratory at the [facility]. It has not been cleared or approved [...] on the report. 09/22/2024 10:29 AM EDT [facility] Pathologist Signature Reviewed by: Lisandra Epstein MD 09/22/2024 10:29 AM EDT [facility] MRD Indicated Test Not Indicated 12/2024 10:29 AM EDT [facility] Bone Marrow Specimen from bone marrow obtained by aspiration / Unknown Non-blood Collection / Unknown 09/19/2024 7:29 AM EDT 09/19/2024 12:13 PM EDT us New Mckinney MD LAB FLOW CYTOMETRY ORDERABLES Final Result [facility] [address] [place] [address] * Bone marrow exam (09/19/2024 7:29 AM EDT) Case Report Bone Marrow Case: [id number] Authorizing Provider: New Mckinney MD Collected: 09/19/2024 0729 Ordering Location: [facility] Hematology/BMT and Received: 09/19/2024 1216 Cellular Therapy Program Pathologist: Lisandra Epstein MD Specimens: A) - Bone Marrow Aspirate, right B) - Bone Marrow Biopsy, right C) - Peripheral Blood for Bone Marrow 3:15 PM EDT [facility] Cytogenetics Report, Addendum Chromosome Analysis Result Giemsa-banded metaphase cells from unstimulated bone marrow cultures showed a 46,XX[20] chromosome pattern. Interpretation Normal female chromosome analysis. No clonal abnormalities were detected at current resolution. Clinical correlation is recommended. 5 3:15 PM EDT [facility] Addendum electronically signed by Lisandra Epstein MD on 09/24/2024 at 1630 EDT Addendum Interpretation The following two (2) genes, TP53 and DNMT3A, with persistent variants have been detected in this bone marrow specimen. The variant, p.[id number], in TP53 gene and the variant, p.Uwt588waw, in the RUNX 1 gene are not detectable at current cutoff and coverage established in this lab. Gene: TP53 Mutation: c.814G>A; p.Mef238Ova Allele Frequency (%): 37% (45% Dec 2023) ID: [id number] Gene: DNMT3A Mutation: c.1522delC; p.Kcq602VxsptChd4 43 Allele Frequency (%): 36% (48% Dec 2023) Additional Details on Mutation Identified: 3:15 PM EDT [facility] Addendum electronically signed by Lisandra Epstein MD on 09/30/2024 at 1515 EDT Final Diagnosis PERIPHERAL BLOOD AND BONE MARROW, RIGHT POSTERIOR ILIAC CREST, (ASPIRATE SMEAR, AND CORE BIOPSY): - HYPOCELLULAR BONE MARROW WITH MARKEDLY DECREASED MEGAKARYOCYTES; NO SIGNIFICANT DYSPOIESIS OR INCREASE IN BLASTS. 3:15 PM EDT [facility] at 1453 EDT Clinical Information AML 09/14 3:15 PM EDT [facility] CBC and Differential PERIPHERAL [...] blasts are not seen. 3:15 PM EDT [facility] Bone Marrow Differential BONE MARROW DIFFERENTIAL: 200 cells Normal Patient Neutrophils 15-50 34 Metamyelocytes 4-19 3 Myelocytes 1-18 10 Promyelocytes 1-8 1 Blasts 0-2 1 Monocytes 0-5 4 Erythroid 16-38 22 Lymphocytes 3-24 13 Eosinophils 0-6 8 Basophils 0-2 0 Plasma cells 0-4 4 Other 5 3:15 PM EDT [facility] Bone Marrow Aspirate and [...] Bone trabeculae are unremarkable. 3:15 PM EDT [facility] Special and Immunohistochemical Stains Special Stain: A1-1 Vazquez-Giemsa A1-2 Vazquez-Giemsa A1-3 Vazquez-Giemsa C1-1 Vazquez-Giemsa IHC: B1-2 CD34 All controls show appropriate reactivity. All immunohistochemis try, in situ hybridization, and histochemical tests were developed by and are performed at the [facility], [address] [place] [address]. All tests reported here, except those addressing [...] negativity on decalcified specimens. 3:15 PM EDT [facility] Flow Cytometry Interpretation MIXED MARROW ELEMENTS WITH NO EVIDENCE OF INCREASED BLASTS OR ABNORMAL LYMPHOID POPULATIONS ([id number]). 5 3:15 PM EDT [facility] CYTOGENETICS/MOLECULA R INTERPRETATION Correlation with cytogenetic/molec ular analysis is suggested. 3:15 PM EDT [facility] Gross Description B. RIGHT A single specimen is received in formalin labeled bone marrow biopsy right posterior iliac crest and consists of 2 piece(s) of red/white tissue measuring 2.1/0.3 cm in length 0.2 cm in diameter. The specimen is submitted in to Histology for decalcification and routine processing. Cold Time: <1m 3:15 PM EDT [facility] Note: A resident was involved in the service. I attest I examined the relevant preparations for the specimens and confirmed the diagnosis or interpretation. 3:15 PM EDT [facility] Bone Marrow Peripheral blood [...] PATHOLOGY ORDERABLES Edit ed Result - Final [facility] [address] [place] [address] * Hepatitis C Antibody w/Reflex to HCV Quant PCR (01/07/2024 8:42 AM EDT) Hepatitis C Antibody Negative Negative 01/07/2024 10:13 AM EDT [facility] Blood Venous blood specimen / Unknown Venipuncture / Unknown 01/07/2024 8:42 AM EDT 01/07/2024 9:25 AM EDT New Mckinney MD LAB BLOOD ORDERABLES Final Re sult [facility] [address] [place] [address] from Last 3 Months or Most Recently Relevant to Health Maintenance [place] [address] [facility] Care Teams Labor Crew Supervisor Relationship Specialty Start Date End Date Jevon Vazquez MD [address] [place] [address] #1 #1 [place] [id number] PCP - General 03/23/22
--- OUTSIDE RECORDS SUMMARY | 2024-10-20 09:01 | XMS_ITS | Encounter Summary ---
Author Organization Healthcare Address [address] [place] [address] Care Team Providers Care Distance Learning Technician Name Role Phone Jevon Vazquez MD Primary Care Provider [phone] Encounter Details Date Type Department Care Team [...] Hematology/BMT and Cellular Therapy Program [address] [address] 10/29/2024 1:30 PM EDT Office Visit [facility] Hematology/BMT and Cellular Therapy Program [address] [address] Zonia Hoffman, SENIOR TECHNICAL MANAGER 800 [facility] [address] [place] [address] 10/29/2024 3:00 PM EDT Appointment [facility] 2 [address] [place] [address] 10/30/2024 3:00 PM EDT Appointment [facility] 2 [address] [place] [address] 10/31/2024 3:00 PM EDT Appointment [facility] 2 [address] [place] [address] 11/01/2024 3:00 PM EDT Appointment [facility] 2 [address] [place] [address] 11/02/2024 3:00 PM EDT Appointment [facility] 2 [address] [place] [address] 2024 3:00 PM EDT Appointment [facility] 2 [address] [place] [address] 11/04/2024 3:00 PM EDT Appointment [facility] 2 [address] [place] [address] documented as of this encounter Visit Diagnoses Not on filedocumented in this encounter Additional Health Concerns Assessment Noted Time A fall risk assessment has been complete d for the patient 09/30/2024 9:33 AM EDT A Body Mass Index follow-up plan has been documented for the patient 05/28/2024 1:52 PM EST documented as of this encounter Care Teams Distance Learning Technician Relationship Specialty Start Date End Date Jveon Vazquez MD [address] [place] [address] #1 #1 [place] [address] PCP - General 03/23/22 documented as of this encounter
[2024-10-20 09:05] VITALS: BMI 21.8
[2024-10-20 09:23] LABS: Hematocrit 23.9 % (37.0-47.0); Hemoglobin 8.1 g/dL (12.2-16.2); Immature Granulocytes % 0.4 %; Mean Corpuscular HGB Conc 33.9 g/dL (31.8-35.4); Mean Corpuscular Hemoglobin 37.9 pg (27.0-31.2); Mean Corpuscular Volume 111.7 fl (81-99); Nucleated Red Blood Cells % 0 %; Red Blood Count 2.14 M/mm3 (4.20-5.40); Red Cell Distribution Width-SD 72.2 fL; White Blood Count 2.3 K/mm3 (4.8-10.8)
[2024-10-20 09:36] LABS: Alanine Aminotransferase 15 U/L (12-78); Albumin Level 3.7 g/dl (3.5-5.0); Albumin/Globulin Ratio 1.7 (1.1-1.8); Alkaline Phosphatase 43 U/L (38-126); Anion Gap 14.3 mEq/L (5-15); Aspartate Amino Transferase 38 U/L (14-36); Bilirubin,Total 0.4 mg/dl (0.2-1.3); Blood Urea Nitrogen 34 mg/dl (7-17); Calcium 9.6 mg/dl (8.4-10.2); Carbon Dioxide 24 mmol/L (22.0-30.0); Chloride 103 mmol/L (98-107); Creatinine Clearance Estimated 38 mL/min (50-200); Creatinine,Serum 1.20 mg/dl (0.52-1.04); Estimated Glomerular Filt Rate 44 ml/min (>60); GFR (African American) 53 ML/MIN (>60); Globulin 2.2 g/dL (1.3-3.2); Glucose 149 mg/dl (74-100); Potassium 4.3 mmoL/L (3.5-5.1); Sodium 137 mmol/L (136-145); Total Protein,Serum 5.9 g/dl (6.3-8.2)
[2024-10-20 09:39] LABS: Platelet Count 14 K/mm3 (142-424)
[2024-10-20] MEDS: SODIUM CHLORIDE 0.9% 10ML FLUSH SYRINGE 10 ML IV (09:45)
== END 2024-10-20 09:45 | disposition home or self-care (01) ==
LOC: INF 08:59
PROVIDERS: PCP Family Medicine; Visit Provider Internal Medicine Medical Oncology
DX: C92.00 Acute myeloblastic leukemia, not having achieved remission (principal)
CPT/HCPCS: 36591; 80053; 85025; J1642

== ENCOUNTER 2024-10-22 08:54 | Outpatient (CLI) | payer MEDICARE, BC, SELFPAY ==
--- OUTSIDE RECORDS SUMMARY | 2024-09-19 07:30 | XMS_ITS | Encounter Summary ---
Author Organization [facility] Address [address] [place] [address] Care Team Providers Care Coal Dumping Equipment Operator Name Role Phone Jevon Vazquez MD Primary Care Provider [phone] Reason for Visit * Reason Comments Nurse Visit Encounter Details Date Type Department Care Team ([facility] Contact Info) Description 09/19/2024 7:30 AM EDT Clinical Support [facility] Hematology/BMT and Cellular Therapy Program [address] [phone] Social History Tobacco Use Types Packs/Day Years [...] Upcoming Encounters Date Type Department Care Team ([facility] Contact Info) Description 10/29/2024 1:00 PM EDT Clinical Support [facility] Hematology/BMT and Cellular Therapy Program [address] [phone] 10/29/2024 1:30 PM EDT Office Visit [facility] Hematology/BMT and Cellular Therapy Program [address] [phone] Zonia Hoffman, GOPHERMAN 800 [facility] [address] [place] [address] 10/29/2024 3:00 PM EDT Appointment [facility] 2 [address] [place] [address] 10/30/2024 3:00 PM EDT Appointment [facility] 2 [address] [place] [address] 10/31/2024 3:00 PM EDT Appointment [facility] 2 [address] [place] [address] 11/01/2024 3:00 PM EDT Appointment [facility] 2 [address] [place] [address] 11/02/2024 3:00 PM EDT Appointment [facility] 2 [address] [place] [address] 2024 3:00 PM EDT Appointment [facility] 2 [address] [place] [address] 11/04/2024 3:00 PM EDT Appointment [facility] 2 [address] [place] [address] documented as of this encounter Visit Diagnoses Not on filedocumented in this encounter Additional Health Concerns Assessment Noted Time A fall risk assessment has been complete d for the patient 09/19/2024 8:38 AM EDT A Body Mass Index follow-up plan has been documented for the patient 05/28/2024 1:52 PM EST documented as of this encounter Care Teams Coal Dumping Equipment Operator Relationship Specialty Start Date End Date Jevon Vazquez MD [address] [place] [address] #1 [address]1 [place] [address] PCP - General 03/23/22 documented as of this encounter
--- OUTSIDE RECORDS SUMMARY | 2024-09-19 09:30 | XMS_ITS | Encounter Summary ---
Author Organization Healthcare Address [address] [place] [address] Care Team Providers Care Building Energy Retrofit Technician Name Role Phone Jevon Vazquez MD Primary Care Provider Reason for Visit * Reason Comments Follow-up Encounter Details Date Type Department Care Team (Latest Contact Info) Description 09/19/2024 9:30 AM EDT Clinical Support [facility] Cancer Acute Treatment Clinic [address] [place] [address] Acute myeloid leukemia not having achieved remission [...] [facility] Hematology/BMT and Cellular Therapy Program [address] [place] [address] 10/29/2024 1:30 PM EDT Office Visit [facility] Hematology/BMT and Cellular Therapy Program [address] [address] Zonia Hoffman, KNIFEMAN 800 [facility] [address] [place] [address] 10/29/2024 3:00 PM EDT Appointment [facility] 2 [address] [place] [address] 10/30/2024 3:00 PM EDT Appointment [facility] 2 [address] [place] [address] 10/31/2024 3:00 PM EDT Appointment [facility] 2 [address] [place] [address] 11/01/2024 3:00 PM EDT Appointment [facility] 2 [address] [place] [address] 11/02/2024 3:00 PM EDT Appointment [facility] Infusion Clinic 2 [address] [place] [address] 2024 3:00 PM EDT Appointment [facility] Infusion Clinic 2 [address] [place] [address] 11/04/2024 3:00 PM EDT Appointment [facility] Infusion Clinic 2 [address] [place] [address] documented as of this encounter Procedures Procedure Name Priority Date/Time Associated Diagnosis Comments PLATELET COUNT, BLOOD STAT 09/19/2024 10:04 AM EDT PREPARE PLATELETS Routine 09/19/2024 9:0 8 AM EDT documented in this encounter Results * (ABNORMAL) Platelet count (09/19/2024 10:04 AM EDT) Platelet Count 61(L) 155 - 369 10*3/uL LAB HEMATOLOGY METHOD 09/19/2024 10:19 AM EDT [facility] Blood Blood sample taken from central line / Unknown (Port) Long-term Catheter / Unknown 09/19/2024 10:04 AM EDT 09/19/2024 10:18 AM EDT us New Mckinney MD LAB BLOOD ORDERABLES Final Re sult [facility] [address] [place] [address] * Transfuse platelets, Irradiated (09/19/2024 10:02 AM EDT) us Lexi Ferraro APRN BLOOD TRANSFUSION ORDERABL ES Final Result * Prepare Leukocyte Reduced Platelets (09/19/2024 9:08 AM EDT) Product Code [id number] CH BLOO D BANK Dispense Status Transfused BLOOD BANK Blood Expiration Date [id number] BLOOD BANK Unit Number [id number] CH B LOOD BANK Product Blood Type 6200 BLOOD BANK Blood Type A+ BLOOD BANK us Provider Not In System BLOOD BANK PRODUCT ORD ERABLES Final Result BLOOD BANK [address] [place] [address], documented in this encounter Visit Diagnoses Diagnosis [...] documented as of this encounter Care Teams Building Energy Retrofit Technician Relationship Specialty Start Date End Date Jevon Vazquez MD [address] [place] [address] #1 [address]1 [place] [address] PCP - General 03/23/22 documented as of this encounter
--- OUTSIDE RECORDS SUMMARY | 2024-09-19 12:00 | XMS_ITS | Encounter Summary ---
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) Procedures Leukemia/Lymphoma - Immunophenotyping by Flow Cytometry New Mckinney MD [address] [facility] [address] [address] Phone: tel: fax: Referral ID Status Reason Start Date Expiration Date V isits Requested Visits Authorized [id number] Authorized 09/11/2024 03/13/2026 1 1 Encounter Details Date Type Department Care Team (Latest Contact Info) Description 09/19/2024 12:00 PM EDT Procedure Visit [facility] Hematology/BMT and Cellular Therapy Program [address] [address] Lexi Ferraro, RODDY [address] [facility] Cancer [address] [address] Acute myeloid leukemia not having [...] to surronding structures. Alternatives discussed: Delayed treatment [place] protocol: Procedure explained and questions answered to [...] Upcoming Encounters Date Type Department Care Team ([facility] st Contact Info) Description 10/29/2024 1:00 PM EDT Clinical Support [facility] Hematology/BMT and Cellular Therapy Program [address] [address] 10/29/2024 1:30 PM EDT Office Visit [facility] Hematology/BMT and Cellular Therapy Program [address] [phone] Zonia Hoffman APRN [address] [facility] [address] [place] [phone] 10/29/2024 3:00 PM EDT Appointment [facility] [address] [place] [address] 10/30/2024 3:00 PM EDT Appointment [facility] [address] [place] [address] 10/31/2024 3:00 PM EDT Appointment [facility] [address] [place] [address] 11/01/2024 3:00 PM EDT Appointment [facility] [address] [place] [address] 11/02/2024 3:00 PM EDT Appointment [facility] [address] [place] [address] 2024 3:00 PM EDT Appointment [facility] [address] [place] [address] 11/04/2024 3:00 PM EDT Appointment [facility] [address] [place] [address] documented as of this encounter Procedures Procedure [...] to surronding structures. Alternatives discussed: Delayed treatment [place] protocol: Procedure explained and questions answered to [...] [facility] Specimen Adequacy Adequate 06/11/2 025 2:37 PM EDT [facility] Band resolution: 450-525 09/24/2024 2:37 PM EDT [facility] Pathologist Signature Reviewed by: Corey Tejada 09/24/2024 2:37 PM EDT [facility] Bone Marrow Non-blood Collection / Unknown 09/19/2024 7:29 AM EDT 09/19/2024 12:35 PM EDT us New Mckinney MD LAB CYTOGENETICS ORDERABLES F inal Result [facility] [address] [place] [address] * Myeloid Focused Panel, 50 gene (09/19/2024 7:29 AM EDT) Interpretation The following two (2) genes, TP53 and DNMT3A, with persistent variants have been detected in this bone marrow specimen. The variant, p.[id number], in TP53 gene and the variant, p.Nqt760mow, in the RUNX 1 gene are not detectable at current cutoff and coverage established in this lab. Gene: TP53 Mutation: c.814G>A; p.Fea074Epx Allele Frequency (%): 37% (45% Dec 2023) ID: [id number] Gene: DNMT3A Mutation: c.1522delC; p.[id number] 3 Allele Frequency (%): 36% (48% Dec 2023) Additional Details on Mutation Identified: Gene Transcript Genome Chrom Coordinate RefVar DNMT3A [id number] Hg19 2 [id number] delC TP53 NM_000546.5 Hg19 17 [id number] G>A 09/29/2024 4:05 PM EDT [facility] Methodology The following 50 genes [...] then sequenced on the Illumina NextSeq 2000 ([employer], [place]). A custom bioinformatics pipeline aligns [...] of hematologic malignancies. 09/29/2024 4:05 PM EDT [facility] Disclaimer This test was developed and its performance characteristics determined by the Clinical Molecular and Genomic Pathology Laboratory at the [facility]. It has not been cleared or approved [...] clinical laboratory testing. 09/29/2024 4:05 PM EDT [facility] Pathologist Signature Reviewed by: Corey Tejada 09/29/2024 4:05 PM EDT [facility] Bone Marrow Specimen from bone marrow obtained by aspiration / Unknown Non-blood Collection / Unknown 09/19/2024 7:29 AM EDT 09/19/2024 12:03 PM EDT us New Mckinney MD LAB MOLECULAR DIAGNOSTICS ORD ERABLES Final Result [facility] [place] [address], * Leukemia/Lymphoma - Immunophenotyping by Flow Cytometry (09/19/2024 7:29 AM EDT) Clinical Indication AML 09/22/2024 10:29 AM EDT [facility] Flow Cytometry Interpretation A. BONE MARROW FOR FLOW CYTOMETRY: - MIXED MARROW ELEMENTS WITH NO EVIDENCE OF INCREASED BLASTS OR ABNORMAL LYMPHOID POPULATIONS, SEE COMMENT. 09/22/2024 10:29 AM EDT [facility] Comments CD45/side scatter analysis shows a [...] surface light chains 09/22/2024 10:29 AM EDT [facility] Disclaimer This test was developed and its performance characteristics determined by the Immuno-Molecular Pathology Laboratory at the [facility]. It has not been cleared or approved [...] on the report. 09/22/2024 10:29 AM EDT [facility] Pathologist [...] Result [facility] [address] [place] [address] * (ABNORMAL) CBC and differential (09/19/2024 7:29 AM EDT) WBC Count 2.70(L) 3.70 - 10.30 10*3/uL LAB HEMATOLOGY METHOD 09/19/2024 9:13 AM EDT [facility] RBC Count 1.86(L) 3.90 - 5.20 10*6/uL LAB HEMATOLOGY METHOD 09/19/2024 9:13 AM EDT [facility] HGB 7.1(L) 11.2 - 15.7 g/dL LAB HEMATOLOGY METHOD 09/19/2024 9:13 AM EDT [facility] HCT 21.5(L) 34.0 - 45.0 % LAB HEMATOLOGY METHOD 09/19/2024 9:13 AM EDT [facility] Platelet Count 14(LL) 155 - 369 10*3/uL LAB HEMATOLOGY METHOD 09/19/2024 9:13 AM EDT [facility] MCV 116(H) 79 - 98 fL LAB HEMATOLOGY METHOD 09/19/2024 9:13 AM EDT [facility] MCH 38.2(H) 26.0 - 32.0 pg LAB HEMATOLOGY METHOD 09/19/2024 9:13 AM EDT [facility] MCHC 33.0 30.7 - 35.5 g/dL LAB HEMATOLOGY METHOD 09/19/2024 9:13 AM EDT [facility] RDW 21.8(H) 11.5 - 14.5 % LAB HEMATOLOGY METHOD 09/19/2024 9:13 AM EDT [facility] MPV 13.5(H) 8.8 - 12.5 fL LAB HEMATOLOGY METHOD 09/19/2024 9:13 AM EDT [facility] nRBC 0.0 <=0.0 per 100 WBCs LAB HEMATOLOGY METHOD 09/19/2024 9:13 AM EDT [facility] Differential Type Automated LAB HEMATOLOGY METHOD 09/19/2024 9:13 AM EDT [facility] Neutrophils % 51 % LAB HEMATOLOGY METHOD 09/19/2024 9:13 AM EDT [facility] Lymphocytes % 41 % LAB HEMATOLOGY METHOD 09/19/2024 9:13 AM EDT [facility] Monocytes % 7 % LAB HEMATOLOGY METHOD 09/19/2024 9:13 AM EDT [facility] Eosinophils % 1 % LAB HEMATOLOGY METHOD 09/19/2024 9:13 AM EDT [facility] Basophils % 0 % LAB HEMATOLOGY METHOD 09/19/2024 9:13 AM EDT [facility] Immature Granulocytes % 0 % LAB [facility] Neutrophils Absolute 1.35(L) 1.60 - 6.10 10*3/uL LAB HEMATOLOGY METHOD 09/19/2024 9:13 AM EDT [facility] Lymphocytes Absolute 1.10(L) 1.20 - 3.90 10*3/uL LAB HEMATOLOGY METHOD [facility]24 [facility] Monocytes Absolute 0.20(L) 0.30 - 0.90 10*3/uL LAB HEMATOLOGY METHOD 09/19[facility]24 [facility] Eosinophils Absolute 0.03 0.00 - 0.50 10*3/uL LAB HEMATOLOGY METHOD 09/19/2024 9:13 AM EDT [facility] Basophils Absolute 0.01 0.00 - 0.10 10*3/uL LAB HEMATOLOGY METHOD [facility]/19[facility]24 [facility] Immature Granulocytes Absolute 0.01 0.00 - 0.06 10*3/uL LAB HEMATOLOGY METHOD 09/19/2024 9:13 AM EDT [facility] Blood Blood sample taken from central line / Unknown (Port) Long-term Catheter / Unknown 09/19/2024 7:29 AM EDT 09/19/2024 8:08 AM EDT Narrative [facility] - 09/19/2024 9:13 AM EDT Therapeutic decision making should be based on absolute values, rather than percentages. New Mckinney MD LAB BLOOD ORDERABLES Final Re sult [facility] [address] [place] [id number] * Bone marrow exam (09/19/2024 7:29 AM EDT) Case Report Bone Marrow Case: [id number] Authorizing Provider: New Mckinney MD Collected: 09/19/2024728 Ordering Location: [facility] Hematology/BMT and Received: 09/19/2024 1216 [...] in this bone marrow specimen. The variant, p.Lie003Plm, in TP53 gene and the variant, p.Jfy863pfy, in the RUNX 1 gene are not detectable at current cutoff and coverage established in this lab. Gene: TP53 Mutation: c.814G>A; p.Crq475Hmp Allele Frequency (%): 37% (45% Dec 2023) ID: [id number] Gene: DNMT3A Mutation: c.1522delC; p.[id number] 43 Allele Frequency (%): 36% (48% Dec [...] INCREASE IN BLASTS. 5 3:15 PM EDT [facility] Bone trabeculae are unremarkable. 3:15 PM EDT [facility] Special and Immunohistochemical Stains Special Stain: A1-1 Vazquez-Giemsa A1-2 Vazquez-Giemsa A1-3 Vazquez-Giemsa C1-1 Vazquez-Giemsa IHC: B1-2 CD34 All controls show appropriate reactivity. All immunohistochemis try, in situ hybridization, and histochemical tests were developed by and are performed at the [facility], [address] [place] [address]. All tests reported here, except those addressing [...] negativity on decalcified specimens. 3:15 PM T [facility] Flow Cytometry Interpretation MIXED MARROW ELEMENTS WITH NO EVIDENCE OF INCREASED BLASTS OR ABNORMAL LYMPHOID POPULATIONS ([id number]). 3:15 PM EDT [facility] CYTOGENETICS/MOLECULA R INTERPRETATION Correlation with cytogenetic/molec ular analysis is suggested. 3:15 PM T [facility] Gross Description B. RIGHT A single specimen is received in formalin labeled bone marrow biopsy right posterior iliac crest and consists of 2 piece(s) of red/white tissue measuring 2.1/0.3 cm in length 0.2 cm in diameter. The specimen is submitted in to Histology for decalcification and routine processing. Cold Time: <1m 3:15 PM T [facility] Note: A resident was involved in the service. I attest I examined the relevant preparations for the specimens and confirmed the diagnosis or interpretation. 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
--- OUTSIDE RECORDS SUMMARY | 2024-09-30 09:00 | XMS_ITS | Encounter Summary ---
Author Organization Healthcare Address [address] [place] [address] Care Team Providers Care Welder/Fitter Name Role Phone Jevon Vazquez MD Primary Care Provider [phone] Reason for Visit * Reason Comments Labs Only Encounter Details Date Type Department Care Team ([facility] Contact Info) Description 09/30/2024 9:00 AM EDT Clinical Support [facility] Hematology/BMT and Cellular Therapy Program [address] [phone] Jyoti Kemp Acute myeloid leukemia not having [...] [facility] Contact Info) Description 10/29/2024 1:00 PM EDT Clinical Support [facility] Hematology/BMT and Cellular Therapy Program [address] [phone] 10/29/2024 1:30 PM EDT Office Visit [facility] Hematology/BMT and Cellular Therapy Program [address] [phone] Zonia Hoffman, PROTECTION CONSULTANT 800 [facility] [address] [place] [phone] 10/29/2024 3:00 PM EDT Appointment [facility] [address] [place] [address] 10/30/2024 3:00 PM EDT Appointment [facility] [address] [place] [address] 10/31/2024 3:00 PM EDT Appointment [facility] [address] [place] [address] 11/01/2024 3:00 PM EDT Appointment [facility] [address] [place] [address] 11/02/2024 3:00 PM EDT Appointment [facility] [address] [place] [address] 2024 3:00 PM EDT Appointment [facility] [address] [place] [address] 11/04/2024 3:00 PM EDT Appointment [facility] [address] [place] [address] documented as of this encounter Procedures Procedure [...] - 99 mg/dL 09/30/2024 10:20 AM EDT [facility] BUN, Plasma 21 8 - 23 mg/dL 09/30/2024 10:20 AM EDT [facility] Creatinine, Plasma 1.00 0.60 - 1.10 mg/dL 09/30/2024 10:20 AM EDT [facility] BUN/Creatinine Ratio 21 09/30/2024 10:20 AM EDT [facility] Sodium, Plasma 137 136 - 145 mmol/L 09/30/2024 10:20 AM EDT [facility] Potassium, Plasma 3.8 3.6 - 4.9 mmol/L 09/30/2024 10:20 AM EDT [facility] Chloride, Plasma 107 97 - 107 mmol/L 09/30/2024 10:20 AM EDT [facility] CO2, Plasma 22 22 - 29 mmol/L 09/30/2024 10:20 AM EDT [facility] Anion Gap 8 6 - 16 mmol/L 09/30/2024 10:20 AM EDT [facility] Total Calcium, Plasma 9.8 8.9 - 10.2 mg/dL 09/30/2024 10:20 AM EDT [facility] Total Protein 5.9(L) 6.3 - 7.9 g/dL 09/30/2024 10:20 AM EDT [facility] Albumin, Plasma 3.8 3.5 - 5.2 g/dL 09/30/2024 10:20 AM EDT [facility] AST, Plasma 28 10 - 35 U/L 09/30/2024 10:20 AM EDT [facility] ALT, Plasma 14 10 - 35 U/L 09/30/2024 10:20 AM EDT [facility] Alkaline Phosphatase, Plasma 34(L) 46 - 142 U/L 09/30/2024 10:20 AM EDT [facility] Total Bilirubin, Plasma 0.3 0.2 - 1.1 mg/dL 09/30/2024 10:20 AM EDT [facility] eGFRcr 59.6 mL/min/1.7 3m*2 09/30/2024 10:20 AM EDT [facility] Comment:Reported eGFRcr in m L/min/1.73m2 is based the CKD-EPI 2020 equation that does not use a race coefficient. Blood Venous blood specimen / Unknown (Port) Long-term Catheter / Unknown 09/30/2024 9:11 AM EDT 09/30/2024 9:50 AM EDT us Zonia Hardy [employer] PROTECTION CONSULTANT LAB BLOOD ORDERABLES Final Res ult [facility] [address] [place] [address] * (ABNORMAL) CBC and Differential (09/30/2024 9:11 AM EDT) WBC Count 3.34(L) 3.70 - 10.30 10*3/uL LAB HEMATOLOGY METHOD 09/30/2024 11:07 AM EDT [facility] RBC Count 1.91(L) 3.90 - 5.20 10*6/uL LAB HEMATOLOGY METHOD 09/30/2024 11:07 AM EDT [facility] HGB 7.7(L) 11.2 - 15.7 g/dL LAB HEMATOLOGY METHOD 09/30/2024 11:07 AM EDT [facility] HCT 22.8(L) 34.0 - 45.0 % LAB HEMATOLOGY METHOD 09/30/2024 11:07 AM EDT [facility] Platelet Count 17(LL) 155 - 369 10*3/uL LAB HEMATOLOGY METHOD 09/30/2024 11:07 AM EDT [facility] MCV 119(H) 79 - 98 fL LAB HEMATOLOGY METHOD 09/30/2024 11:07 AM EDT [facility] MCH 40.3(H) 26.0 - 32.0 pg LAB HEMATOLOGY METHOD 09/30/2024 11:07 AM EDT [facility] MCHC 33.8 30.7 - 35.5 g/dL LAB HEMATOLOGY METHOD 09/30/2024 11:07 AM EDT [facility] RDW 18.7(H) 11.5 - 14.5 % LAB HEMATOLOGY METHOD 09/30/2024 11:07 AM EDT [facility] MPV 11.1 8.8 - 12.5 fL LAB HEMATOLOGY METHOD 09/30/2024 11:07 AM EDT [facility] nRBC 0.0 <=0.0 per 100 WBCs LAB HEMATOLOGY METHOD 09/30/2024 11:07 AM EDT [facility] Differential Type Automated LAB HEMATOLOGY METHOD 09/30/2024 11:07 AM EDT [facility] Neutrophils % 65 % LAB HEMATOLOGY METHOD 09/30/2024 11:07 AM EDT [facility] Lymphocytes % 26 % LAB HEMATOLOGY METHOD 09/30/2024 11:07 AM EDT [facility] Monocytes % 7 % LAB HEMATOLOGY METHOD 09/30/2024 11:07 AM EDT [facility] Eosinophils % 1 % LAB HEMATOLOGY METHOD 09/30/2024 11:07 AM EDT [facility] Basophils % 1 % LAB HEMATOLOGY METHOD 09/30/2024 11:07 AM EDT [facility] Immature Granulocytes % 0 % LAB HEMATOLOGY METHOD 09/30/2024 11:07 AM EDT [facility] Neutrophils Absolute 2.17 1.60 - 6.10 10*3/uL LAB HEMATOLOGY METHOD 09/30/2024 11:07 AM EDT [facility] Lymphocytes Absolute 0.87(L) 1.20 - 3.90 10*3/uL LAB HEMATOLOGY METHOD 09/30/2024 11:07 AM EDT [facility] Monocytes Absolute 0.24(L) 0.30 - 0.90 10*3/uL LAB HEMATOLOGY METHOD 09/30/2024 11:07 AM EDT [facility] Eosinophils Absolute 0.03 0.00 - 0.50 10*3/uL LAB HEMATOLOGY METHOD 09/30/2024 11:07 AM EDT [facility] Basophils Absolute 0.02 0.00 - 0.10 10*3/uL LAB HEMATOLOGY METHOD 09/30/2024 11:07 AM EDT [facility] Immature Granulocytes Absolute 0.01 0.00 - 0.06 10*3/uL LAB HEMATOLOGY METHOD 09/30/2024 11:07 AM EDT [facility] Blood Venous blood specimen / Unknown (Port) Long-term Catheter / Unknown 09/30/2024 9:11 AM EDT 09/30/2024 9:34 AM EDT [facility] - 09/30/2024 11:07 AM EDT Therapeutic decision making should be based on absolute values, rather than percentages. us Zonia Hoffman PROTECTION CONSULTANT LAB BLOOD ORDERABLES Final Res ult 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
--- OUTSIDE RECORDS SUMMARY | 2024-09-30 09:30 | XMS_ITS | Encounter Summary ---
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 female. Referring Physician: Zonia Hoffman, BLACK MILL OPERATOR 800 [facility] [address] [address] Primary Care Provider: Jevon Vazquez MD Chief [...] k/??L. 12/2023- seen by Dr. Manzano in [facility] for evaluation of anemia and lymphocytosis. 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 Next generation sequencing: Abnormal: TP53 (c.814G>A; p.[id number]) frequency 45%, DMNT3A (c.1522delC; p.[id number]) frequency 48%, RUNX1 (c.336_338delGCC; p.[id number]) frequency 35% Azacitidine + Venetoclax Cycle 1: [...] populations. Karyotype: 44~45, X,-X,del(5)(q13q33), todd(7)ins?(7)(q11.2q11.2)t(7;12)(q11.2;q13), -12,todd(17)add(1 7)(p13.2)add(17)(q21),+mar[cp6]/44~45,X,-X,del(5)(q13q33),todd(7)t(7;12)(q11.2;q1 3),-12,otdd(17)add(17)(p13.2)add(17)(q21),+mar[cp4]/46,XX[10] Cycle 2: 03/22/24 ([place] 200 mg PO [...] - Continue local lab checks MWF at [facility] Allogenic transplant planning. 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 However, given her older age > 70, she would benefit from a geriatric BMT program and will make referrals should she be interested. Expected pancytopenia related to chemotherapy/AML. Check CBC x 3 times/week at [facility] Labs reviewed today, Hgb 7.7 , [...] charts, reviewing results, and documenting. RODDY Cristina [facility] HEMATOLOGY/BMT AND CELLULAR THERAPY PROGRAM 800 [facility] [address] 40 minutes was spent on this encounter; [...] Team ([facility] st Contact Info) Description 10/29/2024 1:00 PM EDT Clinical Support [facility] Hematology/BMT and Cellular Therapy Program 750 [facility], [address] [place] [address] [place] [address] 10/29/2024 1:30 PM EDT Office Visit [facility] Hematology/BMT and Cellular Therapy Program [address] [place] [address] Zonia Hoffman, BLACK MILL OPERATOR [address] [facility] [address] [place] [address] 10/29/2024 3:00 PM EDT Appointment [facility] 2 [address] [place] [address] 10/30/2024 3:00 PM EDT Appointment [facility] 2 [address] [place] [address] 10/31/2024 3:00 PM EDT Appointment [facility] 2 [address] [place] [address] 11/01/2024 3:00 PM EDT Appointment [facility] 2 [address] [place] [address] 11/02/2024 3:00 PM EDT Appointment [facility] 2 [address] [place] [address] 2024 3:00 PM EDT Appointment [facility] 2 [address] [place] [address] 11/04/2024 3:00 PM EDT Appointment [facility] 2 [address] [place] [address] documented as of this encounter Results * (ABNORMAL) Comprehensive Metabolic Panel, Plasma (09/30/2024 9:11 AM EDT) [facility] Glucose, Plasma 135(H) 74 - 99 mg/dL 09/30/2024 10:20 AM EDT [facility] BUN, Plasma 21 8 - 23 mg/dL 09/30/2024 10:20 AM EDT [facility] Creatinine, Plasma 1.00 0.60 - 1.10 mg/dL 09/30/2024 10:20 AM EDT [facility] BUN/Creatinine Ratio 21 09/30/2024 10:20 AM EDT [facility] Sodium, Plasma 137 136 - 145 mmol/L 09/30/2024 10:20 AM EDT [facility] Potassium, Plasma 3.8 3.6 - 4.9 mmol/L 09/30/2024 10:20 AM EDT [facility] Chloride, Plasma 107 97 - 107 mmol/L 09/30/2024 10:20 AM EDT [facility] CO2, Plasma 22 22 - 29 mmol/L 09/30/2024 10:20 AM EDT [facility] Anion Gap 8 6 - 16 mmol/L 09/30/2024 10:20 AM EDT [facility] Total Calcium, Plasma 9.8 8.9 - 10.2 mg/dL 09/30/2024 10:20 AM EDT [facility] Total Protein 5.9(L) 6.3 - 7.9 g/dL 09/30/2024 10:20 AM EDT [facility] Albumin, Plasma 3.8 3.5 - 5.2 g/dL 09/30/2024 10:20 AM EDT [facility] AST, Plasma 28 10 - 35 U/L 09/30/2024 10:20 AM EDT [facility] ALT, Plasma 14 10 - 35 U/L 09/30/2024 10:20 AM EDT [facility] Alkaline Phosphatase, Plasma 34(L) 46 - 142 U/L 09/30/2024 10:20 AM EDT [facility] Total Bilirubin, Plasma 0.3 0.2 - 1.1 mg/dL 09/30/2024 10:20 AM EDT [facility] eGFRcr 59.6 mL/min/1.7 3m*2 09/30/2024 10:20 AM EDT [facility] Comment:Reported eGFRcr in m L/min/1.73m2 is based the CKD-EPI 2020 equation that does not use a race coefficient. Blood Venous blood specimen / Unknown (Port) Long-term Catheter / Unknown 09/30/2024 9:11 AM EDT 09/30/2024 9:50 AM EDT us Zonia Hoffman BLACK MILL OPERATOR LAB BLOOD ORDERABLES Final Res ult [facility] [address] [place] [address] * (ABNORMAL) CBC and Differential (09/30/2024 9:11 AM EDT) WBC Count 3.34(L) 3.70 - 10.30 10*3/uL LAB HEMATOLOGY METHOD 09/30/2024 11:07 AM EDT [facility] RBC Count 1.91(L) 3.90 - 5.20 10*6/uL LAB HEMATOLOGY METHOD 09/30/2024 11:07 AM EDT [facility] HGB 7.7(L) 11.2 - 15.7 g/dL LAB HEMATOLOGY METHOD 09/30/2024 11:07 AM EDT [facility] HCT 22.8(L) 34.0 - 45.0 % LAB HEMATOLOGY METHOD 09/30/2024 11:07 AM EDT [facility] Platelet Count 17(LL) 155 - 369 10*3/uL LAB HEMATOLOGY METHOD 09/30/2024 11:07 AM EDT [facility] MCV 119(H) 79 - 98 fL LAB HEMATOLOGY METHOD 09/30/2024 11:07 AM EDT [facility] MCH 40.3(H) 26.0 - 32.0 pg LAB HEMATOLOGY METHOD 09/30/2024 11:07 AM EDT [facility] MCHC 33.8 30.7 - 35.5 g/dL LAB HEMATOLOGY METHOD 09/30/2024 11:07 AM EDT [facility] RDW 18.7(H) 11.5 - 14.5 % LAB HEMATOLOGY METHOD 09/30/2024 11:07 AM EDT [facility] MPV 11.1 8.8 - 12.5 fL LAB HEMATOLOGY METHOD 09/30/2024 11:07 AM EDT [facility] nRBC 0.0 <=0.0 per 100 WBCs LAB HEMATOLOGY METHOD 09/30/2024 11:07 AM EDT [facility] Differential Type Automated LAB HEMATOLOGY METHOD 09/30/2024 11:07 AM EDT [facility] Neutrophils % 65 % LAB HEMATOLOGY METHOD 09/30/2024 11:07 AM EDT [facility] Lymphocytes % 26 % LAB HEMATOLOGY METHOD 09/30/2024 11:07 AM EDT [facility] Monocytes % 7 % LAB HEMATOLOGY METHOD 09/30/2024 11:07 AM EDT [facility] Eosinophils % 1 % LAB HEMATOLOGY METHOD 09/30/2024 11:07 AM EDT [facility] Basophils % 1 % LAB HEMATOLOGY METHOD 09/30/2024 11:07 AM EDT [facility] Immature Granulocytes % 0 % LAB HEMATOLOGY METHOD 09/30/2024 11:07 AM EDT [facility] Neutrophils Absolute 2.17 1.60 - 6.10 10*3/uL LAB HEMATOLOGY METHOD 09/30/2024 11:07 AM EDT [facility] Lymphocytes Absolute 0.87(L) 1.20 - 3.90 10*3/uL LAB HEMATOLOGY METHOD 09/30/2024 11:07 AM EDT [facility] Monocytes Absolute 0.24(L) 0.30 - 0.90 10*3/uL LAB HEMATOLOGY METHOD 09/30/2024 11:07 AM EDT [facility] Eosinophils Absolute 0.03 0.00 - 0.50 10*3/uL LAB HEMATOLOGY METHOD 09/30/2024 11:07 AM EDT [facility] Basophils Absolute 0.02 0.00 - 0.10 10*3/uL LAB HEMATOLOGY METHOD 09/30/2024 11:07 AM EDT [facility] Immature Granulocytes Absolute 0.01 0.00 - 0.06 10*3/uL LAB HEMATOLOGY METHOD 09/30/2024 11:07 AM EDT [facility] Blood Venous blood specimen / Unknown (Port) Long-term Catheter / Unknown 09/30/2024 9:11 AM EDT 09/30/2024 9:34 AM EDT Narrative [facility] - 09/30/2024 11:07 AM EDT Therapeutic decision making should be based on absolute values, rather than percentages. us Zonia Hoffman APRN LAB BLOOD ORDERABLES Final Res ult [facility] [address] [place] [address] documented in this encounter Visit Diagnoses Diagnosis [...] as of this encounter Care Teams Metal Roofer Relationship Specialty Start Date End Date Jevon Vazquez MD [address] [place] [address] #1 #1 [place] [id number] PCP - General 03/23/22 documented as of this encounter
--- OUTSIDE RECORDS SUMMARY | 2024-10-22 08:58 | XMS_ITS | Encounter Summary ---
Author Organization [facility] Address [address] [place] [address] Care Team Providers Care Wagon Driller Name Role Phone Jevon Vazquez MD Primary Care Provider [phone] Reason for Visit * Reason Comments Med Refill Encounter Details Date Type Department Care Team ([facility] Contact Info) Description 01/30/2024 Refill [facility] Hematology/BMT and Cellular Therapy Program [address] [phone] New Mckinney MD 800 [facility] [address] [place] [phone] Social History Tobacco Use Types Packs/Day Years [...] Team ([facility] Contact Info) Description 10/29/2024 1:00 PM EDT Clinical Support [facility] Hematology/BMT and Cellular Therapy Program [address] [place] [address] 10/29/2024 1:30 PM EDT Office Visit [facility] Hematology/BMT and Cellular Therapy Program [address] [phone] Zonia Hoffman, SPEED WINDER [address] [facility] [address] [place] [address] 10/29/2024 3:00 PM EDT Appointment [facility] 2 [address] [place] [address] 10/30/2024 3:00 PM EDT Appointment [facility] 2 [address] [place] [address] 10/31/2024 3:00 PM EDT Appointment [facility] 2 [address] [place] [address] 11/01/2024 3:00 PM EDT Appointment [facility] 2 [address] [place] [address] 11/02/2024 3:00 PM EDT Appointment [facility] 2 [address] [place] [address] 2024 3:00 PM EDT Appointment [facility] 2 [address] [place] [address] 11/04/2024 3:00 PM EDT Appointment [facility] 2 [address] [place] [address] documented as of this encounter Visit Diagnoses Not on filedocumented in this encounter Additional Health Concerns Assessment Noted Time A fall risk assessment has been complete d for the patient 01/11/2024 9:16 AM EDT A Body Mass Index follow-up plan has been documented for the patient 01/21/2024 6:16 AM EDT documented as of this encounter Care Teams Wagon Driller Relationship Specialty Start Date End Date Jevon Vazquez MD [address] [place] [address] #1 #1 [place] [address] PCP - General 03/23/22 documented as of this encounter
--- OUTSIDE RECORDS SUMMARY | 2024-10-22 08:58 | XMS_ITS | Encounter Summary ---
Author Organization Healthcare Address [address] [place] [address] Care Team Providers Care Tractor Technician Name Role Phone Jevon Vazquez MD Primary Care Provider [phone] Encounter Details Date Type Department Care Team ([facility] Contact Info) Description 09/19/2024 Orders Only [facility] Hematology/BMT and Cellular Therapy Program [address] [phone] 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, RN [facility] Social History Tobacco [...] Encounters Date Type Department Care Team ([facility] Contact Info) Description 10/29/2024 1:00 PM EDT Clinical Support [facility] Hematology/BMT and Cellular Therapy Program [address] [phone] 10/29/2024 1:30 PM EDT Office Visit [facility] Hematology/BMT and Cellular Therapy Program [address] [phone] Zonia Hoffman, POCKETED SPRING ASSEMBLER 800 [facility] [address] [place] [phone] 10/29/2024 3:00 PM EDT Appointment [facility] 2 [address] [place] [address] 10/30/2024 3:00 PM EDT Appointment [facility] 2 [address] [place] [address] 10/31/2024 3:00 PM EDT Appointment [facility] 2 [address] [place] [address] 11/01/2024 3:00 PM EDT Appointment [facility] 2 [address] [place] [address] 11/02/2024 3:00 PM EDT Appointment [facility] 2 [address] [place] [address] 2024 3:00 PM EDT Appointment [facility] 2 [address] [place] [address] 11/04/2024 3:00 PM EDT Appointment [facility] 2 [address] [place] [address] documented as of this encounter Visit Diagnoses Not on filedocumented in this encounter Additional Health Concerns Assessment Noted Time A fall risk assessment has been complete d for the patient 09/19/2024 8:38 AM EDT A Body Mass Index follow-up plan has been documented for the patient 05/28/2024 1:52 PM EST documented as of this encounter Care Teams Tractor Technician Relationship Specialty Start Date End Date Jevon Vazquez MD [address] [place] [address] #1 #1 [place] [address] PCP - General 03/23/22 documented as of this encounter
--- OUTSIDE RECORDS SUMMARY | 2024-10-22 08:58 | XMS_ITS | Encounter Summary ---
Author Organization Healthcare Address [address] [place] [address] Care Team Providers Care Director Of District Office Name Role Phone Jevon Vazquez MD Primary [...] Hematology/BMT and Cellular Therapy Program [address] [address] 10/29/2024 1:30 PM EDT Office Visit [facility] Hematology/BMT and Cellular Therapy Program [address] [phone] Zonia Hoffman, MASTER TECHNICIAN 800 [facility] [address] [place] [address] 10/29/2024 3:00 PM EDT Appointment [facility] 2 [address] [place] [address] 10/30/2024 3:00 PM EDT Appointment [facility] 2 [address] [place] [address] 10/31/2024 3:00 PM EDT Appointment [facility] 2 [address] [place] [address] 11/01/2024 3:00 PM EDT Appointment [facility] 2 [address] [place] [address] 11/02/2024 3:00 PM EDT Appointment [facility] 2 [address] [place] [address] 2024 3:00 PM EDT Appointment [facility] 2 [address] [place] [address] 11/04/2024 3:00 PM EDT Appointment [facility] 2 [address] [place] [address] documented as of this encounter Visit Diagnoses Not on filedocumented in this encounter Additional Health Concerns Assessment Noted Time A fall risk assessment has been complete d for the patient 09/30/2024 9:33 AM EDT A Body Mass Index follow-up plan has been documented for the patient 05/28/2024 1:52 PM EST documented as of this encounter Care Teams Director Of District Office Relationship Specialty Start Date End Date Jevon Vazquez MD [address] [place] [address] #1 #1 [place] [address] PCP - General 03/23/22 documented as of this encounter
--- OUTSIDE RECORDS SUMMARY | 2024-10-22 08:58 | XMS_ITS | Encounter Summary ---
Author Organization Healthcare Address [address] [place] [address] Care Team Providers Care Coordinator Skill Training Program Name Role Phone Jevon Vazquez MD Primary Care Provider [phone] Encounter Details Date Type Department Care Team [...] Hematology/BMT and Cellular Therapy Program [address] [address] 10/29/2024 1:30 PM EDT Office Visit [facility] Hematology/BMT and Cellular Therapy Program [address] [phone] Zonia Hoffman, COMMAND CENTER ANALYST 800 [facility] [address] [place] [phone] 10/29/2024 3:00 PM EDT Appointment [facility] 2 [address] [place] [address] 10/30/2024 3:00 PM EDT Appointment [facility] 2 [address] [place] [address] 10/31/2024 3:00 PM EDT Appointment [facility] 2 [address] [place] [address] 11/01/2024 3:00 PM EDT Appointment [facility] 2 [address] [place] [address] 11/02/2024 3:00 PM EDT Appointment [facility] 2 [address] [place] [address] 2024 3:00 PM EDT Appointment [facility] 2 [address] [place] [address] 11/04/2024 3:00 PM EDT Appointment [facility] 2 [address] [place] [address] documented as of this encounter Visit Diagnoses Not on filedocumented in this encounter Additional Health Concerns Assessment Noted Time A fall risk assessment has been complete d for the patient 09/30/2024 9:33 AM EDT A Body Mass Index follow-up plan has been documented for the patient 05/28/2024 1:52 PM EST documented as of this encounter Care Teams Coordinator Skill Training Program Relationship Specialty Start Date End Date Jevon Vazquez MD [address] [place] [address] #1 #1 [place] [address] PCP - General 03/23/22 documented as of this encounter
--- OUTSIDE RECORDS SUMMARY | 2024-10-22 08:59 | XMS_ITS | Encounter Summary ---
Author Organization Healthcare Address [address] [place] [address] Care Team Providers Care Membership Manager Name Role Phone Jevon Vazquez MD Primary Care Provider [phone] Encounter Details Date Type Department Care Team [...] Hematology/BMT and Cellular Therapy Program [address] [address] 10/29/2024 1:30 PM EDT Office Visit [facility] Hematology/BMT and Cellular Therapy Program [address] [address] Zonia Hoffman, MOBILITY SCOOTER REPAIRER 800 [facility] [address] [place] [phone] 10/29/2024 3:00 PM EDT Appointment [facility] 2 [address] [place] [address] 10/30/2024 3:00 PM EDT Appointment [facility] 2 [address] [place] [address] 10/31/2024 3:00 PM EDT Appointment [facility] 2 [address] [place] [address] 11/01/2024 3:00 PM EDT Appointment [facility] 2 [address] [place] [address] 11/02/2024 3:00 PM EDT Appointment [facility] 2 [address] [place] [address] 2024 3:00 PM EDT Appointment [facility] 2 [address] [place] [address] 11/04/2024 3:00 PM EDT Appointment [facility] 2 [address] [place] [address] documented as of this encounter Visit Diagnoses Not on filedocumented in this encounter Additional Health Concerns Assessment Noted Time A fall risk assessment has been complete d for the patient 09/19/2024 8:38 AM EDT A Body Mass Index follow-up plan has been documented for the patient 05/28/2024 1:52 PM EST documented as of this encounter Care Teams Membership Manager Relationship Specialty Start Date End Date Jevon Vazquez MD [address] [place] [address] #1 #1 [place] [address] PCP - General 03/23/22 documented as of this encounter
--- OUTSIDE RECORDS SUMMARY | 2024-10-22 08:59 | XMS_ITS ---
Author Organization [facility] Address [address] [place] [address] Care Team Providers Care Scout Sniper Name Role Phone Jevon Vazquez MD Primary Care Provider [phone] Active Problems Problem Noted Date Diagnosed Date [...]
--- OUTSIDE RECORDS SUMMARY | 2024-10-22 08:59 | XMS_ITS | Clinical Summary ---
Author Organization [facility] Address [address] [place] [address] Phone Care Team Providers Care Production Illustrator Name Role Phone Jevon Vazquez MD Primary Care Provider [phone] Allergies Active Allergy Reactions Criticality Noted Date [...] L4-5 LAMINECTOMY; Surgeon: Ivan Bartholomew MD; Location: [facility] MAIN OR; Service: Spine Medical History [...] 5.6 % 11/14/2022 2:57 PM EDT PREFERRED [employer], [employer]. Avg Glucose 148 mg/dL 11/14/2022 2:57 PM EDT [employer], [facility] Blood VENOUS BLOOD / Unknown Venipuncture / Unknown 11/11/2022 3:46 PM EDT 11/11/2022 3:55 PM EDT Narrative [facility] [employer] [facility] - 11/14/2022 2:57 PM EDT REFERENCE RANGE: Normal: 4.0-5.6% Pre-diabetes: 5.7-6.4% Provisional diagnosis of diabetes: >6.4% Hgb F>10% and anything which shortens red cell survival, such as hemolytic anemia, or unstable hemoglobin variants such as HbSS, HbSC, or HbCC, will lower the HbA1c value associated with a given level of glycemic control. us Lexi Maloney DO CHEMISTRY ORDERABLES Final R esult [facility] [employer] [address] [facility] , [place] [address] * (ABNORMAL) BASIC METABOLIC PANEL (11/11/2022 3:46 PM EDT) Sodium 136 136 - 145 mmol/L 11/11/2022 4:11 PM EDT [facility] Potassium 3.8 3.5 - 5.0 mmol/L 11/11/2022 4:11 PM EDT [facility] Chloride 102 98 - 107 mmol/L 11/11/2022 4:11 PM EDT [facility] Total CO2 24 22 - 29 mmol/L 11/11/2022 4:11 PM EDT [facility] Anion Gap 10 7 - 16 mmol/L 11/11/2022 4:11 PM EDT [facility] Calcium 10.1 8.8 - 10.4 mg/dL 11/11/2022 4:11 PM EDT [facility] Glucose Lvl 147(H) 82 - 100 mg/dL 11/11/2022 4:11 PM EDT [facility] BUN 15 8 - 23 mg/dL 11/11/2022 4:11 PM EDT [facility] Creatinine 0.82 0.51 - 1.30 mg/dL 11/11/2022 4:11 PM EDT [facility] eGFR (CKD-EPIcr 2020) 76 >=60 mL/min/1.7 3 m2 11/11/2022 4:11 PM EDT [facility] Comment:Estimated GFR was ca lculated using the CKD-EPIcr (2020) equation refit without race. The equation is recommended by the National Kidney Foundation - [place] [employer] of Nephrology Task Force. Blood VENOUS BLOOD / Unknown Venipuncture / Unknown 11/11/2022 3:46 PM EDT 11/11/2022 3:54 PM EDT us Leona Hanna DO CHEMISTRY ORDERABLES Final Res ult [facility] [address] [place] [address] * DX BONE DENSITY AXIAL SKELETON (07/25/2022 9:14 AM EDT) Anatomical Region Laterality Modality Dexa Scan 07/25/2022 Narrative 07/25/2022 3:45 PM EDT Indication: The patient is a female age 65 or older who requires a bone density assessment. Study was performed on [employer] 5. Bone Density: Region BMD T-score Z-score [...] Most Recently Relevant to Health Maintenance Insurance [place] [address] MEDICARE SUPPLEMENT MEDICARE [place] PART A AND B Member Subscriber Plan / Payer (Ef fective 2016-Present) Name:Ashly Hernández Member ID:[id number] Relation to Subscriber:Self Name:Ashly Hernández Subscriber ID:[id number] Payer ID:Not on file Group ID:Not on file Type:Not on file Address: [address] MEDICARE SUPPLEMENT MEDICARE [place] PART A & [place] [place] [phone] MEDICARE [place] PART A AND B Member Subscriber Plan / Payer (Ef fective 2016-Present) Name:Ashly Hernández Member ID:[id number] Relation to Subscriber:Self Name:Ashly Hernández Subscriber ID:[id number] Payer ID:Not on file Group ID:Not on file Type:Not on file Address: [address] MEDICARE SUPPLEMENT [employer] MEDICARE [place] PART A AND B [address] MEDICARE SUPPLEMENT Advance Directives For more information, please contact: [phone] * Full Code (Latest Code Status on File) Date Activated Date Inactivated Comments 11/14/2022 6:53 PM 11/16/2022 7:37 PM * Full Code Date Activated Date Inactivated Comments 11/12/2022 5:17 AM 11/14/2022 6:47 PM Care Teams Production Illustrator Relationship Specialty Start Date End Date Jevon Vazquez MD [address] [place] [address] PCP - General Family Medicine 11/10/22
--- OUTSIDE RECORDS SUMMARY | 2024-10-22 08:59 | XMS_ITS | Encounter Summary ---
Author Organization [facility] Address [address] [place] [address] Care Team Providers Care Plugger Name Role Phone Jevon Vazquez MD Primary Care Provider [phone] Reason for Visit * Reason Comments Med Refill Encounter Details Date Type Department Care Team ([facility] Contact Info) Description 10/14/2024 Refill [facility] Hematology/BMT and Cellular Therapy Program [address] [phone] New Mckinney MD 800 [facility] [address] [place] [phone] Social History Tobacco Use Types Packs/Day Years [...] Upcoming Encounters Date Type Department Care Team ([facility] Contact Info) Description 10/29/2024 1:00 PM EDT Clinical Support [facility] Hematology/BMT and Cellular Therapy Program [address] [phone] 10/29/2024 1:30 PM EDT Office Visit [facility] Hematology/BMT and Cellular Therapy Program [address] [address] Zonia Hoffman, SPECIALIST MANAGERS [address] [facility] [address] [place] [address] 10/29/2024 3:00 PM EDT Appointment [facility] 2 [address] [place] [address] 10/30/2024 3:00 PM EDT Appointment [facility] 2 [address] [place] [address] 10/31/2024 3:00 PM EDT Appointment [facility] 2 [address] [place] [address] 11/01/2024 3:00 PM EDT Appointment [facility] 2 [address] [place] [address] 11/02/2024 3:00 PM EDT Appointment [facility] 2 [address] [place] [address] 2024 3:00 PM EDT Appointment [facility] 2 [address] [place] [address] 11/04/2024 3:00 PM EDT Appointment [facility] 2 [address] [place] [address] documented as of this encounter Visit Diagnoses Not on filedocumented in this encounter Additional Health Concerns Assessment Noted Time A fall risk assessment has been complete d for the patient 09/30/2024 9:33 AM EDT A Body Mass Index follow-up plan has been documented for the patient 05/28/2024 1:52 PM EST documented as of this encounter Care Teams Plugger Relationship Specialty Start Date End Date Jevon Vazquez MD [address] [place] [address] #1 #1 [place] [address] PCP - General 03/23/22 documented as of this encounter
--- OUTSIDE RECORDS SUMMARY | 2024-10-22 08:59 | XMS_ITS | Encounter Summary ---
Author Organization Healthcare Address [address] [place] [address] Care Team Providers Care Tanning Wheel Filler Name Role Phone Jevon Vazquez MD Primary Care Provider [phone] Encounter Details Date Type Department Care Team [...] Hematology/BMT and Cellular Therapy Program [address] [address] 10/29/2024 1:30 PM EDT Office Visit [facility] Hematology/BMT and Cellular Therapy Program [address] [address] Zonia Hoffman, WATER FABRICATOR OPERATOR 800 [facility] [address] [place] [address] 10/29/2024 3:00 PM EDT Appointment [facility] 2 [address] [place] [address] 10/30/2024 3:00 PM EDT Appointment [facility] 2 [address] [place] [address] 10/31/2024 3:00 PM EDT Appointment [facility] 2 [address] [place] [address] 11/01/2024 3:00 PM EDT Appointment [facility] 2 [address] [place] [address] 11/02/2024 3:00 PM EDT Appointment [facility] 2 [address] [place] [address] 2024 3:00 PM EDT Appointment [facility] 2 [address] [place] [address] 11/04/2024 3:00 PM EDT Appointment [facility] 2 [address] [place] [address] documented as of this encounter Visit Diagnoses Not on filedocumented in this encounter Additional Health Concerns Assessment Noted Time A fall risk assessment has been complete d for the patient 09/19/2024 8:38 AM EDT A Body Mass Index follow-up plan has been documented for the patient 05/28/2024 1:52 PM EST documented as of this encounter Care Teams Tanning Wheel Filler Relationship Specialty Start Date End Date Jevon Vazquez MD [address] [place] [address] #1 #1 [place] [address] PCP - General 03/23/22 documented as of this encounter
--- OUTSIDE RECORDS SUMMARY | 2024-10-22 08:59 | XMS_ITS | Encounter Summary ---
Author Organization Healthcare Address [address] [place] [address] Care Team Providers Care Chemistry Account Manager Name Role Phone Jevon Vazquez MD Primary Care Provider [phone] Encounter Details Date Type Department Care Team [...] Hematology/BMT and Cellular Therapy Program [address] [address] 10/29/2024 1:30 PM EDT Office Visit [facility] Hematology/BMT and Cellular Therapy Program [address] [address] Zonia Hoffman, PRECISE WINDER 800 [facility] [address] [place] [address] 10/29/2024 3:00 PM EDT Appointment [facility] 2 [address] [place] [address] 10/30/2024 3:00 PM EDT Appointment [facility] 2 [address] [place] [address] 10/31/2024 3:00 PM EDT Appointment [facility] 2 [address] [place] [address] 11/01/2024 3:00 PM EDT Appointment [facility] 2 [address] [place] [address] 11/02/2024 3:00 PM EDT Appointment [facility] 2 [address] [place] [address] 2024 3:00 PM EDT Appointment [facility] 2 [address] [place] [address] 11/04/2024 3:00 PM EDT Appointment [facility] 2 [address] [place] [address] documented as of this encounter Visit Diagnoses Not on filedocumented in this encounter Additional Health Concerns Assessment Noted Time A fall risk assessment has been complete d for the patient 07/30/2024 8:29 AM EDT A Body Mass Index follow-up plan has been documented for the patient 05/28/2024 1:52 PM EST documented as of this encounter Care Teams Chemistry Account Manager Relationship Specialty Start Date End Date Jevon Vazquez MD [address] [place] [address] #1 #1 [place] [address] PCP - General 03/23/22 documented as of this encounter
--- OUTSIDE RECORDS SUMMARY | 2024-10-22 08:59 | XMS_ITS | Encounter Summary ---
Author Organization Healthcare Address [address] [place] [address] Care Team Providers Care Class B Truck Driver Name Role Phone Jevon Vazquez MD Primary Care Provider [phone] Encounter Details Date Type Department Care Team [...] Hematology/BMT and Cellular Therapy Program [address] [address] 10/29/2024 1:30 PM EDT Office Visit [facility] Hematology/BMT and Cellular Therapy Program [address] [address] Zonia Hoffman, AGILE BUSINESS ANALYST 800 [facility] [address] [place] [address] 10/29/2024 3:00 PM EDT Appointment [facility] 2 [address] [place] [address] 10/30/2024 3:00 PM EDT Appointment [facility] 2 [address] [place] [address] 10/31/2024 3:00 PM EDT Appointment [facility] 2 [address] [place] [address] 11/01/2024 3:00 PM EDT Appointment [facility] 2 [address] [place] [address] 11/02/2024 3:00 PM EDT Appointment [facility] 2 [address] [place] [address] 2024 3:00 PM EDT Appointment [facility] 2 [address] [place] [address] 11/04/2024 3:00 PM EDT Appointment [facility] 2 [address] [place] [address] documented as of this encounter Visit Diagnoses Not on filedocumented in this encounter Additional Health Concerns Assessment Noted Time A fall risk assessment has been complete d for the patient 07/30/2024 8:29 AM EDT A Body Mass Index follow-up plan has been documented for the patient 05/28/2024 1:52 PM EST documented as of this encounter Care Teams Class B Truck Driver Relationship Specialty Start Date End Date Jevon Vazquez MD [address] [place] [address] #1 #1 [place] [address] PCP - General 03/23/22 documented as of this encounter
--- OUTSIDE RECORDS SUMMARY | 2024-10-22 08:59 | XMS_ITS | Encounter Summary ---
Author Organization Healthcare Address [address] [place] [address] Care Team Providers Care Cable Worker Helper Name Role Phone Jevon Vazquez MD Primary Care Provider [phone] Encounter Details Date Type Department Care Team [...] Hematology/BMT and Cellular Therapy Program [address] [address] 10/29/2024 1:30 PM EDT Office Visit [facility] Hematology/BMT and Cellular Therapy Program [address] [address] Zonia Hoffman, SOLUTIONS SALES CONSULTANT 800 [facility] [address] [place] [address] 10/29/2024 3:00 PM EDT Appointment [facility] [address] [place] [address] 10/30/2024 3:00 PM EDT Appointment [facility] [address] [place] [address] 10/31/2024 3:00 PM EDT Appointment [facility] 2 [address] [place] [address] 11/01/2024 3:00 PM EDT Appointment [facility] 2 [address] [place] [address] 11/02/2024 3:00 PM EDT Appointment [facility] 2 [address] [place] [address] 2024 3:00 PM EDT Appointment [facility] 2 [address] [place] [address] 11/04/2024 3:00 PM EDT Appointment [facility] 2 [address] [place] [address] documented as of this encounter Visit Diagnoses Not on filedocumented in this encounter Additional Health Concerns Assessment Noted Time A fall risk assessment has been complete d for the patient 09/19/2024 8:38 AM EDT A Body Mass Index follow-up plan has been documented for the patient 05/28/2024 1:52 PM EST documented as of this encounter Care Teams Cable Worker Helper Relationship Specialty Start Date End Date Jevon Vazquez MD [address] [place] [address] #1 [address]1 [place] [address] PCP - General 03/23/22 documented as of this encounter
--- OUTSIDE RECORDS SUMMARY | 2024-10-22 08:59 | XMS_ITS | Encounter Summary ---
Author Organization Healthcare Address [address] [place] [address] Care Team Providers Care Director Of Primary Care Name Role Phone Jevon Vazquez MD Primary Care Provider [phone] Encounter Details Date Type Department Care Team [...] Hematology/BMT and Cellular Therapy Program [address] [address] 10/29/2024 1:30 PM EDT Office Visit [facility] Hematology/BMT and Cellular Therapy Program [address] [address] Zonia Hoffman, BUTTON SEWING MACHINE OPERATOR 800 [facility] [address] [place] [address] 10/29/2024 3:00 PM EDT Appointment [facility] 2 [address] [place] [address] 10/30/2024 3:00 PM EDT Appointment [facility] 2 [address] [place] [address] 10/31/2024 3:00 PM EDT Appointment [facility] 2 [address] [place] [address] 11/01/2024 3:00 PM EDT Appointment [facility] 2 [address] [place] [address] 11/02/2024 3:00 PM EDT Appointment [facility] 2 [address] [place] [address] 2024 3:00 PM EDT Appointment [facility] 2 [address] [place] [address] 11/04/2024 3:00 PM EDT Appointment [facility] 2 [address] [place] [address] documented as of this encounter Visit Diagnoses Not on filedocumented in this encounter Additional Health Concerns Assessment Noted Time A fall risk assessment has been complete d for the patient 07/30/2024 8:29 AM EDT A Body Mass Index follow-up plan has been documented for the patient 05/28/2024 1:52 PM EST documented as of this encounter Care Teams Director Of Primary Care Relationship Specialty Start Date End Date Jevon Vazquez MD [address] [place] [address] #1 [address]1 [place] [address] PCP - General 03/23/22 documented as of this encounter
--- OUTSIDE RECORDS SUMMARY | 2024-10-22 08:59 | XMS_ITS | Encounter Summary ---
Author Organization Healthcare Address [address] [place] [address] Care Team Providers Care Supervisor Logging Name Role Phone Jevon Vazquez MD Primary Care Provider [phone] Encounter Details Date Type Department Care Team [...] Hematology/BMT and Cellular Therapy Program [address] [address] 10/29/2024 1:30 PM EDT Office Visit [facility] Hematology/BMT and Cellular Therapy Program [address] [address] Zonia Hoffman, PROCESS CONTROLLER 800 [facility] [address] [place] [address] 10/29/2024 3:00 PM EDT Appointment [facility] 2 [address] [place] [address] 10/30/2024 3:00 PM EDT Appointment [facility] 2 [address] [place] [address] 10/31/2024 3:00 PM EDT Appointment [facility] 2 [address] [place] [address] 11/01/2024 3:00 PM EDT Appointment [facility] 2 [address] [place] [address] 11/02/2024 3:00 PM EDT Appointment [facility] 2 [address] [place] [address] 2024 3:00 PM EDT Appointment [facility] 2 [address] [place] [address] 11/04/2024 3:00 PM EDT Appointment [facility] 2 [address] [place] [address] documented as of this encounter Visit Diagnoses Not on filedocumented in this encounter Additional Health Concerns Assessment Noted Time A fall risk assessment has been complete d for the patient 07/30/2024 8:29 AM EDT A Body Mass Index follow-up plan has been documented for the patient 05/28/2024 1:52 PM EST documented as of this encounter Care Teams Supervisor Logging Relationship Specialty Start Date End Date Jevon Vazquez MD [address] [place] [address] #1 [address]1 [place] [address] PCP - General 03/23/22 documented as of this encounter
--- OUTSIDE RECORDS SUMMARY | 2024-10-22 08:59 | XMS_ITS | Encounter Summary ---
Author Organization Healthcare Address [address] [place] [address] Care Team Providers Care Campus Security Director Name Role Phone Jevon Vazquez MD Primary Care Provider [phone] Encounter Details Date Type Department Care Team [...] Hematology/BMT and Cellular Therapy Program [address] [address] 10/29/2024 1:30 PM EDT Office Visit [facility] Hematology/BMT and Cellular Therapy Program [address] [address] Zonia Hoffman, DIRECTOR TRUST 800 [facility] [address] [place] [address] 10/29/2024 3:00 PM EDT Appointment [facility] 2 [address] [place] [address] 10/30/2024 3:00 PM EDT Appointment [facility] 2 [address] [place] [address] 10/31/2024 3:00 PM EDT Appointment [facility] 2 [address] [place] [address] 11/01/2024 3:00 PM EDT Appointment [facility] 2 [address] [place] [address] 11/02/2024 3:00 PM EDT Appointment [facility] 2 [address] [place] [address] 2024 3:00 PM EDT Appointment [facility] 2 [address] [place] [address] 11/04/2024 3:00 PM EDT Appointment [facility] 2 [address] [place] [address] documented as of this encounter Visit Diagnoses Not on filedocumented in this encounter Additional Health Concerns Assessment Noted Time A fall risk assessment has been complete d for the patient 09/30/2024 9:33 AM EDT A Body Mass Index follow-up plan has been documented for the patient 05/28/2024 1:52 PM EST documented as of this encounter Care Teams Campus Security Director Relationship Specialty Start Date End Date Jevon Vazquez MD [address] [place] [address] #1 [address]1 [place] [address] PCP - General 03/23/22 documented as of this encounter
--- OUTSIDE RECORDS SUMMARY | 2024-10-22 08:59 | XMS_ITS | Clinical Summary ---
Author Organization [facility] Address [address] [place] [address] Care Team Providers Care Speech Professor Name Role Phone David Vazquez Primary Care Provider [phone] Allergies No known active allergies Medications atorvastatin [...] series) 2025 Medical Devices Implanted Type Area Aviation Tactical Readiness Officer Device Identifier Shelf Expiration Date Model / Serial / Lot Mis Ply Scr 6.5x50mm - [id number] Implanted:Qty : 1 on 01/30/2023 by Ivan Bartholomew MD at [facility] Screw N/A: Spine Lumbar [employer] [id number] / / Mis Ply Scr 6.5x45mm - [id number] Implanted:Qty : 3 on 01/30/2023 by Ivan Bartholomew MD at [facility] Screw N/A: Spine Lumbar [employer] [id number] / / Reline Mas Reduction Screw 7.5x45 - [id number] Implanted:Qty : 2 on 01/30/2023 by Ivan Bartholomew MD at [facility] Screw N/A: Spine Lumbar [employer] [id number] / / Grft Dbm Vesuvius Putty 5cc - [id number] Implanted:Qty : 1 on 01/30/2023 by Ivan Bartholomew MD at [facility] [employer] [id number] 04/20/2025 [id number] P / [id number] / Putty I-Factor 5.0cc - [id number] Implanted:Qty : 1 on 01/30/2023 by Ivan Bartholomew MD at [facility] N/A: Spine Lumbar [employer] 03/15/2025 [id number] / / [id number] Modulus Xlw [id number] 10 Degree - [id number] Implanted:Qty : 1 on 01/30/2023 by Ivan Bartholomew MD at [facility] N/A: Spine Lumbar [employer] [id number] / / [id number] Modulus Xlw [id number] - [id number] Implanted:Qty : 1 on 01/30/2023 by Ivan Bartholomew MD at [facility] N/A: Spine Lumbar [employer] 09/28/2027 [id number] / / [id number] Reln Lock Scr 5.5mm Opn Tulip - [id number] Implanted:Qty : 6 on 01/30/2023 by Ivan Bartholomew MD at [facility] N/A: Spine Lumbar [employer] [id number] / / Reln Mas Ti Petar 5.5x70mm - [id number] Implanted:Qty : 2 on 01/30/2023 by Ivan Bartholomew MD at [facility] N/A: Spine Lumbar [employer] [id number] / / Procedures Procedure Name Priority Date/Time [...] Hgb A1C 6.0(H) 4.0 - 5.6 % [facility] Comment: Reference Ranges [...] Glycohemoglobin Standardization program (NGSP) and traceable to [facility] Estimated Average Glucose 126(H) 68 - 114 mg/dL [facility] Whole Blood (Blood) 01/24/2023 2:32 PM EDT 01/24/2023 6:00 PM EDT us Ivan Bartholomew MD CHEMISTRY ORDERABLES Fin al Result [facility] [address] * (ABNORMAL) BASIC METABOLIC PANEL (BMP=EP1) (01/24/2023 2:32 PM EDT) Sodium 141 135 - 146 mmol/L [facility] Potassium 4.8 3.5 - 5.1 mmol/L [facility] Chloride 107 98 - 110 mmol/L [facility] CO2 24 22 - 29 mmol/L [facility] Anion Gap 10 5 - 13 mmol/L [facility] Comment:Anion gap calculatio n does not include potassium (K+) value. BUN 17 7 - 25 mg/dL [facility] Creatinine 1.20 0.50 - 1.20 mg/dL [facility] Glucose 125(H) 71 - 99 mg/dL [facility] Comment:Reference range (71- 99 mg/dL) refers only to fasting samples, and does not apply to non-fasting samples. eGFR CKD-EPI 2020 48 See Note [facility] Comment: eGFR calculated with 2020 CKD-EPI equation using creatinine, patient's age and gender. Other factors, especially muscle mass, may affect accuracy and need to be considered. Patient values should be interpreted as a trend. The reference interval is >60 mL/min/1.73m2. Calcium 10.3 8.5 - 10.5 mg/dL [facility] BUN/Creatinine Ratio 14 [facility] Serum 01/24/2023 2:32 PM EDT 01/24/2023 5:54 PM EDT us Lexi SUAREZ CHEMISTRY ORDERABLES Final Resu lt [facility] [address] from Last 3 Months or Most Recently Relevant to Health Maintenance Insurance MEDICARE PART A [facility] [address] [address] [place] [address] ANTH Advance Directives For more information, please contact: [phone] * Full Code (Latest Code Status on File) Date Activated Date Inactivated Comments 01/30/2023 9:13 AM No automated chest compression devices for [facility] Patients Care Teams Speech Professor Relationship Specialty Start Date End Date David Vazquez [address] [place] [id number] PCP - General 01/24/23
--- OUTSIDE RECORDS SUMMARY | 2024-10-22 08:59 | XMS_ITS | Encounter Summary ---
Author Organization [facility] Address [address] [place] [address] Care Team Providers Care Executive Producer Promos Name Role Phone Jevon Vazquez MD Primary Care Provider [phone] Reason for Visit * Reason Comments Med Refill Encounter Details Date Type Department Care Team ([facility] Contact Info) Description 09/12/2024 Refill [facility] Hematology/BMT and Cellular Therapy Program [address] [phone] New Mckinney MD 800 [facility] [address] [place] [address] Social History Tobacco Use Types Packs/Day Years [...] Date Type Department Care Team ([facility] Contact Info) Description 10/29/2024 1:00 PM EDT Clinical Support [facility] Hematology/BMT and Cellular Therapy Program [address] [phone] 10/29/2024 1:30 PM EDT Office Visit [facility] Hematology/BMT and Cellular Therapy Program [address] [address] Zonia Hoffman, GREENBELT [address] [facility] [address] [place] [address] 10/29/2024 3:00 PM EDT Appointment [facility] 2 [address] [place] [address] 10/30/2024 3:00 PM EDT Appointment [facility] 2 [address] [place] [address] 10/31/2024 3:00 PM EDT Appointment [facility] 2 [address] [place] [address] 11/01/2024 3:00 PM EDT Appointment [facility] 2 [address] [place] [address] 11/02/2024 3:00 PM EDT Appointment [facility] 2 [address] [place] [address] 2024 3:00 PM EDT Appointment [facility] 2 [address] [place] [address] 11/04/2024 3:00 PM EDT Appointment [facility] 2 [address] [place] [address] documented as of this encounter Visit Diagnoses Not on filedocumented in this encounter Additional Health Concerns Assessment Noted Time A fall risk assessment has been complete d for the patient 07/30/2024 8:29 AM EDT A Body Mass Index follow-up plan has been documented for the patient 05/28/2024 1:52 PM EST documented as of this encounter Care Teams Executive Producer Promos Relationship Specialty Start Date End Date Jevon Vazquez MD [address] [place] [address] #1 #1 [place] [address] PCP - General 03/23/22 documented as of this encounter
--- OUTSIDE RECORDS SUMMARY | 2024-10-22 08:59 | XMS_ITS | Encounter Summary ---
Author Organization Healthcare Address [address] [place] [address] Care Team Providers Care Graphite Grinder Name Role Phone Jevon Vazquez MD Primary [...] Hematology/BMT and Cellular Therapy Program [address] [address] 10/29/2024 1:30 PM EDT Office Visit [facility] Hematology/BMT and Cellular Therapy Program [address] [address] Zonia Hoffman, CALENDERER 800 [facility] [address] [place] [address] 10/29/2024 3:00 PM EDT Appointment [facility] 2 [address] [place] [address] 10/30/2024 3:00 PM EDT Appointment [facility] 2 [address] [place] [address] 10/31/2024 3:00 PM EDT Appointment [facility] 2 [address] [place] [address] 11/01/2024 3:00 PM EDT Appointment [facility] 2 [address] [place] [address] 11/02/2024 3:00 PM EDT Appointment [facility] 2 [address] [place] [address] 2024 3:00 PM EDT Appointment [facility] 2 [address] [place] [address] 11/04/2024 3:00 PM EDT Appointment [facility] 2 [address] [place] [address] documented as of this encounter Visit Diagnoses Not on filedocumented in this encounter Additional Health Concerns Assessment Noted Time A fall risk assessment has been complete d for the patient 09/19/2024 8:38 AM EDT A Body Mass Index follow-up plan has been documented for the patient 05/28/2024 1:52 PM EST documented as of this encounter Care Teams Graphite Grinder Relationship Specialty Start Date End Date Jevon Vazquez MD [address] [place] [address] #1 [address]1 [place] [address] PCP - General 03/23/22 documented as of this encounter
--- OUTSIDE RECORDS SUMMARY | 2024-10-22 08:59 | XMS_ITS | Encounter Summary ---
Author Organization Healthcare Address [address] [place] [address] Care Team Providers Care Restaurant Crew Person Name Role Phone Jevon Vazquez MD Primary Care Provider [phone] Encounter Details Date Type Department Care Team [...] Hematology/BMT and Cellular Therapy Program [address] [address] 10/29/2024 1:30 PM EDT Office Visit [facility] Hematology/BMT and Cellular Therapy Program [address] [address] Zonia Hoffman, CDL SERVICE TECHNICIAN 800 [facility] [address] [place] [address] 10/29/2024 3:00 PM EDT Appointment [facility] 2 [address] [place] [address] 10/30/2024 3:00 PM EDT Appointment [facility] 2 [address] [place] [address] 10/31/2024 3:00 PM EDT Appointment [facility] 2 [address] [place] [address] 11/01/2024 3:00 PM EDT Appointment [facility] 2 [address] [place] [address] 11/02/2024 3:00 PM EDT Appointment [facility] 2 [address] [place] [address] 2024 3:00 PM EDT Appointment [facility] 2 [address] [place] [address] 11/04/2024 3:00 PM EDT Appointment [facility] 2 [address] [place] [address] documented as of this encounter Visit Diagnoses Not on filedocumented in this encounter Additional Health Concerns Assessment Noted Time A fall risk assessment has been complete d for the patient 09/30/2024 9:33 AM EDT A Body Mass Index follow-up plan has been documented for the patient 05/28/2024 1:52 PM EST documented as of this encounter Care Teams Restaurant Crew Person Relationship Specialty Start Date End Date Jevon Vazquez MD [address] [place] [address] #1 [address]1 [place] [address] PCP - General 03/23/22 documented as of this encounter
--- OUTSIDE RECORDS SUMMARY | 2024-10-22 08:59 | XMS_ITS | Encounter Summary ---
Author Organization Healthcare Address [address] [place] [address] Care Team Providers Care Dolphin Researcher Name Role Phone Jevon Vazquez MD Primary Care Provider [phone] Encounter Details Date Type Department Care Team [...] Hematology/BMT and Cellular Therapy Program [address] [address] 10/29/2024 1:30 PM EDT Office Visit [facility] Hematology/BMT and Cellular Therapy Program [address] [address] Zonia Hoffman, ENTERPRISE APPLICATIONS MANAGER 800 [facility] [address] [place] [address] 10/29/2024 3:00 PM EDT Appointment [facility] 2 [address] [place] [address] 10/30/2024 3:00 PM EDT Appointment [facility] 2 [address] [place] [address] 10/31/2024 3:00 PM EDT Appointment [facility] 2 [address] [place] [address] 11/01/2024 3:00 PM EDT Appointment [facility] 2 [address] [place] [address] 11/02/2024 3:00 PM EDT Appointment [facility] 2 [address] [place] [address] 2024 3:00 PM EDT Appointment [facility] 2 [address] [place] [address] 11/04/2024 3:00 PM EDT Appointment [facility] 2 [address] [place] [address] documented as of this encounter Visit Diagnoses Not on filedocumented in this encounter Additional Health Concerns Assessment Noted Time A fall risk assessment has been complete d for the patient 09/30/2024 9:33 AM EDT A Body Mass Index follow-up plan has been documented for the patient 05/28/2024 1:52 PM EST documented as of this encounter Care Teams Dolphin Researcher Relationship Specialty Start Date End Date Jevon Vazquez MD [address] [place] [address] #1 [address] [place] [address] PCP - General 03/23/22 documented as of this encounter
--- OUTSIDE RECORDS SUMMARY | 2024-10-22 08:59 | XMS_ITS | Encounter Summary ---
Author Organization [facility] Address [address] [place] [address] Care Team Providers Care Bottom Sander Name Role Phone Jevon Vazquez MD Primary Care Provider [phone] Reason for Visit * Reason Comments Med Refill Encounter Details Date Type Department Care Team ([facility] Contact Info) Description 10/15/2024 Refill [facility] Hematology/BMT and Cellular Therapy Program [address] [phone] New Mckinney MD 800 [facility] [address] [place] [address] Social History Tobacco Use Types Packs/Day Years [...] Hematology/BMT and Cellular Therapy Program [address] [phone] 10/29/2024 1:30 PM EDT Office Visit [facility] Hematology/BMT and Cellular Therapy Program [address] [address] Zonia Hoffman, STOCK SPECULATOR [address] [facility] [address] [place] [address] 10/29/2024 3:00 PM EDT Appointment [facility] 2 [address] [place] [address] 10/30/2024 3:00 PM EDT Appointment [facility] 2 [address] [place] [address] 10/31/2024 3:00 PM EDT Appointment [facility] 2 [address] [place] [address] 11/01/2024 3:00 PM EDT Appointment [facility] 2 [address] [place] [address] 11/02/2024 3:00 PM EDT Appointment [facility] 2 [address] [place] [address] 2024 3:00 PM EDT Appointment [facility] 2 [address] [place] [address] 11/04/2024 3:00 PM EDT Appointment [facility] 2 [address] [place] [address] documented as of this encounter Visit Diagnoses Not on filedocumented in this encounter Additional Health Concerns Assessment Noted Time A fall risk assessment has been complete d for the patient 09/30/2024 9:33 AM EDT A Body Mass Index follow-up plan has been documented for the patient 05/28/2024 1:52 PM EST documented as of this encounter Care Teams Bottom Sander Relationship Specialty Start Date End Date Jevon Vazquez MD [address] [place] [address] #1 #1 [place] [address] PCP - General 03/23/22 documented as of this encounter
--- OUTSIDE RECORDS SUMMARY | 2024-10-22 08:59 | XMS_ITS | Encounter Summary ---
Author Organization Healthcare Address [address] [place] [address] Care Team Providers Care Sonar Subsystem Equipment Operator Name Role Phone Jevon Vazquez MD Primary Care Provider [phone] Encounter Details Date Type Department Care Team [...] Hematology/BMT and Cellular Therapy Program [address] [address] 10/29/2024 1:30 PM EDT Office Visit [facility] Hematology/BMT and Cellular Therapy Program [address] [phone] Zonia Hoffman, FISHER EEL 800 [facility] [address] [place] [phone] 10/29/2024 3:00 PM EDT Appointment [facility] 2 [address] [place] [address] 10/30/2024 3:00 PM EDT Appointment [facility] 2 [address] [place] [address] 10/31/2024 3:00 PM EDT Appointment [facility] 2 [address] [place] [address] 11/01/2024 3:00 PM EDT Appointment [facility] 2 [address] [place] [address] 11/02/2024 3:00 PM EDT Appointment [facility] 2 [address] [place] [address] 2024 3:00 PM EDT Appointment [facility] 2 [address] [place] [address] 11/04/2024 3:00 PM EDT Appointment [facility] 2 [address] [place] [address] documented as of this encounter Visit Diagnoses Not on filedocumented in this encounter Additional Health Concerns Assessment Noted Time A fall risk assessment has been complete d for the patient 09/19/2024 8:38 AM EDT A Body Mass Index follow-up plan has been documented for the patient 05/28/2024 1:52 PM EST documented as of this encounter Care Teams Sonar Subsystem Equipment Operator Relationship Specialty Start Date End Date Jevon Vazquez MD [address] [place] [address] #1 [address]1 [place] [address] PCP - General 03/23/22 documented as of this encounter
--- OUTSIDE RECORDS SUMMARY | 2024-10-22 08:59 | XMS_ITS | Encounter Summary ---
Author Organization Healthcare Address [address] [place] [address] Care Team Providers Care Supervisor Post Wave Name Role Phone Jevon Vazquez MD Primary Care Provider [phone] Encounter Details Date Type Department Care Team [...] Hematology/BMT and Cellular Therapy Program [address] [address] 10/29/2024 1:30 PM EDT Office Visit [facility] Hematology/BMT and Cellular Therapy Program [address] [address] Zonia Hoffman, HYDRAULIC MINER 800 [facility] [address] [place] [phone] 10/29/2024 3:00 PM EDT Appointment [facility] [address] [place] [address] 10/30/2024 3:00 PM EDT Appointment [facility] 2 [address] [place] [address] 10/31/2024 3:00 PM EDT Appointment [facility] 2 [address] [place] [address] 11/01/2024 3:00 PM EDT Appointment [facility] 2 [address] [place] [address] 11/02/2024 3:00 PM EDT Appointment [facility] 2 [address] [place] [address] 2024 3:00 PM EDT Appointment [facility] 2 [address] [place] [address] 11/04/2024 3:00 PM EDT Appointment [facility] 2 [address] [place] [address] documented as of this encounter Visit Diagnoses Not on filedocumented in this encounter Additional Health Concerns Assessment Noted Time A fall risk assessment has been complete d for the patient 07/30/2024 8:29 AM EDT A Body Mass Index follow-up plan has been documented for the patient 05/28/2024 1:52 PM EST documented as of this encounter Care Teams Supervisor Post Wave Relationship Specialty Start Date End Date Jevon Vazquez MD [address] [place] [address] [address]1 [address]1 [place] [address] PCP - General 03/23/22 documented as of this encounter
--- OUTSIDE RECORDS SUMMARY | 2024-10-22 08:59 | XMS_ITS | Encounter Summary ---
Author Organization Healthcare Address [address] [place] [address] Care Team Providers Care Technician Terminal And Repeater Name Role Phone Jevon Vazquez MD Primary Care Provider [phone] Encounter Details Date Type Department Care Team [...] Hematology/BMT and Cellular Therapy Program [address] [address] 10/29/2024 1:30 PM EDT Office Visit [facility] Hematology/BMT and Cellular Therapy Program [address] [address] Zonia Hoffman, TUBE SIZER OPERATOR 800 [facility] [address] [place] [address] 10/29/2024 3:00 PM EDT Appointment [facility] 2 [address] [place] [address] 10/30/2024 3:00 PM EDT Appointment [facility] 2 [address] [place] [address] 10/31/2024 3:00 PM EDT Appointment [facility] 2 [address] [place] [address] 11/01/2024 3:00 PM EDT Appointment [facility] 2 [address] [place] [address] 11/02/2024 3:00 PM EDT Appointment [facility] 2 [address] [place] [address] 2024 3:00 PM EDT Appointment [facility] 2 [address] [place] [address] 11/04/2024 3:00 PM EDT Appointment [facility] 2 [address] [place] [address] documented as of this encounter Visit Diagnoses Not on filedocumented in this encounter Additional Health Concerns Assessment Noted Time A fall risk assessment has been complete d for the patient 07/30/2024 8:29 AM EDT A Body Mass Index follow-up plan has been documented for the patient 05/28/2024 1:52 PM EST documented as of this encounter Care Teams Technician Terminal And Repeater Relationship Specialty Start Date End Date Jevon Vazquez MD [address] [place] [address] [address]1 [address]1 [place] [address] PCP - General 03/23/22 documented as of this encounter
--- OUTSIDE RECORDS SUMMARY | 2024-10-22 08:59 | XMS_ITS | Encounter Summary ---
Author Organization Healthcare Address [address] [place] [address] Care Team Providers Care Welding Manager Name Role Phone Jevon Vazquez MD Primary Care Provider [phone] Encounter Details Date Type Department Care Team [...] Hematology/BMT and Cellular Therapy Program [address] [address] 10/29/2024 1:30 PM EDT Office Visit [facility] Hematology/BMT and Cellular Therapy Program [address] [address] Zonia Hoffman, HAND PACKER 800 [facility] [address] [place] [address] 10/29/2024 3:00 PM EDT Appointment [facility] 2 [address] [place] [address] 10/30/2024 3:00 PM EDT Appointment [facility] 2 [address] [place] [address] 10/31/2024 3:00 PM EDT Appointment [facility] 2 [address] [place] [address] 11/01/2024 3:00 PM EDT Appointment [facility] 2 [address] [place] [address] 11/02/2024 3:00 PM EDT Appointment [facility] 2 [address] [place] [address] 2024 3:00 PM EDT Appointment [facility] 2 [address] [place] [address] 11/04/2024 3:00 PM EDT Appointment [facility] 2 [address] [place] [address] documented as of this encounter Visit Diagnoses Not on filedocumented in this encounter Additional Health Concerns Assessment Noted Time A fall risk assessment has been complete d for the patient 07/30/2024 8:29 AM EDT A Body Mass Index follow-up plan has been documented for the patient 05/28/2024 1:52 PM EST documented as of this encounter Care Teams Welding Manager Relationship Specialty Start Date End Date Jevon Vazquez MD [address] [place] [address] [address]1 [address]1 [place] [address] PCP - General 03/23/22 documented as of this encounter
--- OUTSIDE RECORDS SUMMARY | 2024-10-22 08:59 | XMS_ITS | Encounter Summary ---
Author Organization Healthcare Address [address] [place] [address] Care Team Providers Care Systems Administration Analyst Name Role Phone Jevon Vazquez MD Primary Care Provider [phone] Encounter Details Date Type Department Care Team (Late Contact Info) Description 09/30/2024 Telephone [facility] Hematology/BMT and Cellular Therapy Program [address] [place] [address] Zoraida Good, RN [facility] Social History Tobacco [...] Hematology/BMT and Cellular Therapy Program [address] [place] [address] 10/29/2024 1:30 PM EDT Office Visit [facility] Hematology/BMT and Cellular Therapy Program 750 [facility] [address] Zonia Hoffman, SAIL MAKER 800 [facility] [address] [place] [address] 10/29/2024 3:00 PM EDT Appointment [facility] 2 [address] [place] [address] 10/30/2024 3:00 PM EDT Appointment [facility] 2 [address] [place] [address] 10/31/2024 3:00 PM EDT Appointment [facility] 2 [address] [place] [address] 11/01/2024 3:00 PM EDT Appointment [facility] 2 [address] [place] [address] 11/02/2024 3:00 PM EDT Appointment [facility] 2 [address] [place] [address] 2024 3:00 PM EDT Appointment [facility] 2 [address] [place] [address] 11/04/2024 3:00 PM EDT Appointment [facility] 2 [address] [place] [address] documented as of this encounter Visit Diagnoses Not on filedocumented in this encounter Additional Health Concerns Assessment Noted Time A fall risk assessment has been complete d for the patient 09/30/2024 9:33 AM EDT A Body Mass Index follow-up plan has been documented for the patient 05/28/2024 1:52 PM EST documented as of this encounter Care Teams Systems Administration Analyst Relationship Specialty Start Date End Date Jevon Vazquez MD [address] [place] [address] #1 [address]1 [place] [address] PCP - General 03/23/22 documented as of this encounter
--- OUTSIDE RECORDS SUMMARY | 2024-10-22 08:59 | XMS_ITS | Encounter Summary ---
Author Organization Healthcare Address [address] [place] [address] Care Team Providers Care Geospatial Analyst Name Role Phone Jevon Vazquez MD Primary Care Provider [phone] Encounter Details Date Type Department Care Team [...] Hematology/BMT and Cellular Therapy Program [address] [address] 10/29/2024 1:30 PM EDT Office Visit [facility] Hematology/BMT and Cellular Therapy Program [address] [address] Zonia Hoffman, SPECIAL EDUCATION BUS DRIVER 800 [facility] [address] [place] [address] 10/29/2024 3:00 PM EDT Appointment [facility] 2 [address] [place] [address] 10/30/2024 3:00 PM EDT Appointment [facility] 2 [address] [place] [address] 10/31/2024 3:00 PM EDT Appointment [facility] 2 [address] [place] [address] 11/01/2024 3:00 PM EDT Appointment [facility] 2 [address] [place] [address] 11/02/2024 3:00 PM EDT Appointment [facility] 2 [address] [place] [address] 2024 3:00 PM EDT Appointment [facility] 2 [address] [place] [address] 11/04/2024 3:00 PM EDT Appointment [facility] 2 [address] [place] [address] documented as of this encounter Visit Diagnoses Not on filedocumented in this encounter Additional Health Concerns Assessment Noted Time A fall risk assessment has been complete d for the patient 07/30/2024 8:29 AM EDT A Body Mass Index follow-up plan has been documented for the patient 05/28/2024 1:52 PM EST documented as of this encounter Care Teams Geospatial Analyst Relationship Specialty Start Date End Date Jevon Vazquez MD [address] [place] [address] [address]1 [address] [place] [address] PCP - General 03/23/22 documented as of this encounter
--- OUTSIDE RECORDS SUMMARY | 2024-10-22 08:59 | XMS_ITS | Encounter Summary ---
Author Organization [facility] Address [address] [place] [address] Care Team Providers Care Senior Mobile Developer Name Role Phone Jevon Vazquez MD Primary Care Provider [phone] Encounter Details Date Type Department Care Team ([facility] Contact Info) Description 09/15/2024 Telephone [facility] Hematology/BMT and Cellular Therapy Program [address] [phone] Zonia Hoffman, TRIM DIE MAKER 800 [facility] [address] [place] [phone] Social History Tobacco Use Types Packs/Day Years [...] Department Care Team ([facility] Contact Info) Description 10/29/2024 1:00 PM EDT Clinical Support [facility] Hematology/BMT and Cellular Therapy Program [address] [phone] 10/29/2024 1:30 PM EDT Office Visit [facility] Hematology/BMT and Cellular Therapy Program [address] [phone] Zonia Hoffman, TRIM DIE MAKER 800 [facility] [address] [place] [address] 10/29/2024 3:00 PM EDT Appointment [facility] 2 [address] [place] [address] 10/30/2024 3:00 PM EDT Appointment [facility] 2 [address] [place] [address] 10/31/2024 3:00 PM EDT Appointment [facility] 2 [address] [place] [address] 11/01/2024 3:00 PM EDT Appointment [facility] 2 [address] [place] [address] 11/02/2024 3:00 PM EDT Appointment [facility] 2 [address] [place] [address] 2024 3:00 PM EDT Appointment [facility] 2 [address] [place] [address] 11/04/2024 3:00 PM EDT Appointment [facility] 2 [address] [place] [address] documented as of this encounter Visit Diagnoses Not on filedocumented in this encounter Additional Health Concerns Assessment Noted Time A fall risk assessment has been complete d for the patient 07/30/2024 8:29 AM EDT A Body Mass Index follow-up plan has been documented for the patient 05/28/2024 1:52 PM EST documented as of this encounter Care Teams Senior Mobile Developer Relationship Specialty Start Date End Date Jevon Vazquez MD [address] [place] [address] #1 [address]1 [place] [address] PCP - General 03/23/22 documented as of this encounter
--- OUTSIDE RECORDS SUMMARY | 2024-10-22 08:59 | XMS_ITS | Encounter Summary ---
Author Organization Healthcare Address [address] [place] [address] Care Team Providers Care Final Touch Up Painter Name Role Phone Jevon Vazquez MD Primary Care Provider [phone] Encounter Details Date Type Department Care Team ([facility] st Contact Info) Description 10/13/2024 Telephone [facility] Hematology/BMT and Cellular Therapy Program [address] [address] Zonia Hoffman, CERTIFIED DRIVER EXAMINER 800 [facility] [address] [place] [address] Social History Tobacco Use Types Packs/Day Years [...] needs to be delayed again Callback number: [phone] documented in this encounter Plan of Treatment Upcoming Encounters Date Type Department Care Team ([facility] st Contact Info) Description 10/29/2024 1:00 PM EDT Clinical Support [facility] Hematology/BMT and Cellular Therapy Program [address] [address] 10/29/2024 1:30 PM EDT Office Visit [facility] Hematology/BMT and Cellular Therapy Program [address] [address] Zonia Hoffman, CERTIFIED DRIVER EXAMINER 800 [facility] [address] [place] [address] 10/29/2024 3:00 PM EDT Appointment [facility] 2 [address] [place] [address] 10/30/2024 3:00 PM EDT Appointment [facility] 2 [address] [place] [address] 10/31/2024 3:00 PM EDT Appointment [facility] 2 [address] [place] [address] 11/01/2024 3:00 PM EDT Appointment [facility] 2 [address] [place] [address] 11/02/2024 3:00 PM EDT Appointment [facility] 2 [address] [place] [address] 2024 3:00 PM EDT Appointment [facility] 2 [address] [place] [address] 11/04/2024 3:00 PM EDT Appointment [facility] 2 [address] [place] [address] documented as of this encounter Visit Diagnoses Not on filedocumented in this encounter Additional Health Concerns Assessment Noted Time A fall risk assessment has been complete d for the patient 09/30/2024 9:33 AM EDT A Body Mass Index follow-up plan has been documented for the patient 05/28/2024 1:52 PM EST documented as of this encounter Care Teams Final Touch Up Painter Relationship Specialty Start Date End Date Jevon Vazquez MD [address] [place] [address] #1 #1 [place] [address] PCP - General 03/23/22 documented as of this encounter
--- OUTSIDE RECORDS SUMMARY | 2024-10-22 08:59 | XMS_ITS | Clinical Summary ---
Author Organization [facility] Address [address] [place] [address] Care Team Providers Care Audio/Visual Operator Name Role Phone Jevon Vazquez MD Primary Care Provider [phone] Allergies No known active allergies Medications amLODIPine [...] [facility] Hematology/BMT and Cellular Therapy Program [address] [place] [phone] New Mckinney MD 10/14/2024 Refill [facility]ology/BMT and Cellular Therapy Program [address] [place] [phone] New Mckinney MD 10/13/2024 Telephone [facility]ology[facility]BMT [facility] Cellular Therapy Program [address] [place] [phone] Zonia Hoffman, RODDY 10/13/2024 Travel 10/12/2024 Travel 10/11/2024 Travel 10/09/2024 Travel 10/08/2024 Travel 10/08/2024 Orders Only [facility] Hematology/BMT and Cellular Therapy Program [address] [place] [phone] 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, assistant professor of geography 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) 10/07/2024 Travel 09/30/2024 9:30 AM EDT Office Visit [facility] Hematology/BMT and Cellular Therapy Program [address] [facility], [address] [place] [address] [place] [address] Zonia Hoffman APRN 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) 09/30/2024 9:00 AM EDT Clinical Support [facility] Hematology/BMT and Cellular Therapy Program 750 [facility], [address] [place] [phone] Jyoti Kemp 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) 09/30/2024 Telephone [facility] Hematology/BMT and Cellular Therapy Program 750 [facility], [address] [place] [phone] Zoraida Good RN 09/30/2024 Travel 09/29/2024 Travel 09/28/2024 Travel 09/27/2024 Travel 09/26/2024 Travel 09/25/2024 Travel 09/24/2024 Travel 09/23/2024 Travel 09/19/2024 12:00 PM EDT Procedure Visit [facility] Hematology/BMT and Cellular Therapy Program [address] [phone] Lexi Ferraro APRN 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) 09/19/2024 9:30 AM EDT Clinical Support [facility] [address] [facility], [address] [place] [address] 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) 09/19/2024 7:30 AM EDT Clinical Support [facility] Hematology/BMT and Cellular Therapy Program [address] [phone] 09/19/2024 Telephone [facility] Hematology/BMT and Cellular Therapy Program [address] [phone] Romana Richmond RN 09/19/2024 Orders Only [facility] Hematology/BMT and Cellular Therapy Program 750 [facility], [address] [place] [address] [phone] 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, RN 09/19/2024 Travel 09/15/2024 Telephone [facility] Hematology/BMT and Cellular Therapy Program 750 [facility], [address] [place] [address] [place] [phone] Zonia Hoffman, PLANNER INTERNSHIP 09/15/2024 Travel 09/14/2024 Travel 09/13/2024 Travel 09/12/2024 Travel 09/12/2024 Refill [facility] Hematology/BMT and Cellular Therapy Program 750 [facility], [address] [place] [address] [place] [phone] New Mckinney MD 09/11/2024 Travel 09/10/2024 Travel 09/01/2024 Telephone [facility] Hematology/BMT and Cellular Therapy Program 750 [facility], [address] [place] [address] [place] [phone] Zonia Hoffman, PLANNER INTERNSHIP 08/31/2024 Travel 08/30/2024 Travel 08/18/2024 Telephone [facility] Hematology/BMT and Cellular Therapy Program 750 [facility], [address] [place] [address] [place] [address] Romana Gorman, PLANNER INTERNSHIP 08/17/2024 Travel 08/16/2024 Travel 08/15/2024 Travel 08/13/2024 Travel 07/30/2024 8:30 AM EDT Office Visit [facility] Hematology/BMT and Cellular Therapy Program 750 [facility], [address] [place] [address] [place] [phone] Zonia Hoffman, PLANNER INTERNSHIP Pancytopenia (Primary Dx) 07/30/2024 8:00 AM EDT Clinical Support [facility]ematology/BMT and Cellular Therapy Program 750 [facility], [address] [place] [address] [place] [address] Pancytopenia 07/30/2024 Telephone [facility] Hematology/BMT and Cellular Therapy Program 750 [facility], [address] [place] [address] [place] [address] Romana Richmond RN 07/30/2024 Refill [facility] Hematology/BMT and Cellular Therapy Program 750 [facility], [address] [place] [address] Daxa Elliott assistant professor of geography 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); [...] Upcoming Encounters Date Type Department Care Team ([facility] Contact Info) Description 10/29/2024 1:00 PM EDT Clinical Support [facility] Hematology/BMT and Cellular Therapy Program [address] [place] [address] 10/29/2024 1:30 PM EDT Office Visit [facility] Hematology/BMT and Cellular Therapy Program 750 [facility], [facility] [place] [address] Zonia Hoffman, PLANNER INTERNSHIP 800 [facility] [address] [place] [address] 10/29/2024 3:00 PM EDT Appointment [facility] 2 [address] [place] [address] 10/30/2024 3:00 PM EDT Appointment [facility] 2 [address] [place] [address] 10/31/2024 3:00 PM EDT Appointment [facility] 2 [address] [place] [address] 11/01/2024 3:00 PM EDT Appointment [facility] 2 [address] [place] [address] 11/02/2024 3:00 PM EDT Appointment [facility] 2 [address] [place] [address] 2024 3:00 PM EDT Appointment [facility] 2 [address] [place] [address] 11/04/2024 3:00 PM EDT Appointment [facility] 2 [address] [place] [address] Health Maintenance Due Date Last Done Comments [...] UKY-Zoster Vaccines (1 of 2) 05/16/2023 03/21/2023 PST-NQTLD-52 Vaccine (4 - season) 2023 02/18/2021, 07/10/2020, [...] this topic Medical Devices Implanted Type Area Harness Builder Device Identifier Shelf Expiration Date Model / Serial / Lot Port Clearvue Power 8fr - [id number] Implanted:Qty: 1 on 01/21/2024 by Ness Sargent MD at [facility] Peripherial Vascular-[id number] / / Procedures Procedure Name Priority Date/Time [...] Res ult [facility] [address] [place] [address] * (ABNORMAL) Comprehensive Metabolic Panel, Plasma (09/30/2024 [...] Res ult [facility] [address] [place] [address] * BIOPSY BONE MARROW (09/19/2024 12:00 PM [...] to surronding structures. Alternatives discussed: Delayed treatment [place] protocol: Procedure explained and questions answered to [...] METHOD 09/19/2024 10:19 AM EDT [facility] Blood Blood sample taken from central line / Unknown (Port) Long-term Catheter / Unknown 09/19/2024 10:04 AM EDT 09/19/2024 10:18 AM EDT New Mckinney MD LAB BLOOD ORDERABLES Final Re sult Performing Organization Address City/[facility] Co de Phone Number [facility] [address] [place] [address] * Transfuse platelets, Irradiated (09/19/2024 10:02 AM EDT) Lexi Ferraro APRN BLOOD TRANSFUSION ORDERABL ES Final Result * Prepare Leukocyte Reduced Platelets (09/19/2024 9:08 AM EDT) Product Code D7521B95 CH BLOO D BANK Dispense Status Transfused BLOOD BANK Blood Expiration Date [id number] BLOOD BANK Unit Number [id number] CH B LOOD BANK Product Blood Type 6200 BLOOD BANK Blood Type A+ BLOOD BANK Result [facility] Provider Not In System BLOOD BANK PRODUCT ORD ERABLES Final Result Performing Organization Address [facility] Co de Phone Number BLOOD BANK [address] [place] [address], * Myeloid Focused Panel, 50 gene (09/19/2024 7:29 AM EDT) Interpretation The following two (2) genes, TP53 and DNMT3A, with persistent variants have been detected in this bone marrow specimen. The variant, p.Bjx255Mqc, in TP53 gene and the variant, p.Ynb369ood, in the RUNX 1 gene are not detectable at current cutoff and coverage established in this lab. Gene: TP53 Mutation: c.814G>A; p.Suy842Omu Allele Frequency (%): 37% (45% Dec 2023) ID: [id number] Gene: DNMT3A Mutation: c.1522delC; p.[id number] 3 Allele Frequency (%): 36% (48% Dec 2023) Additional Details on Mutation Identified: Gene Transcript Genome Chrom Coordinate RefVar DNMT3A [id number] Hg19 2 [id number] delC TP53 NM_000546.5 Hg19 17 [id number] G>A 09/29/2024 4:05 PM EDT [facility] Methodology The following 50 [...] then sequenced on the Illumina NextSeq 2000 ([employer], [place]). A custom bioinformatics pipeline aligns [...] of hematologic malignancies. 09/29/2024 4:05 PM EDT [facility] Disclaimer This test was developed and its performance characteristics determined by the Clinical Molecular and Genomic Pathology Laboratory at the [facility]. It has not been [...] clinical laboratory testing. 09/29/2024 4:05 PM EDT [facility] Pathologist Signature Reviewed by: Corey Tejada 09/29/2024 4:05 PM EDT [facility] Bone Marrow Specimen from bone marrow obtained by aspiration / Unknown Non-blood Collection / Unknown 09/19/2024 7:29 AM EDT 09/19/2024 12:03 PM EDT us New Mckinney MD LAB MOLECULAR DIAGNOSTICS ORD ERABLES Final Result Performing Organization Address City/State/[facility] Co de Phone Number [facility] [address] * Chromosome Karyotype, Oncology (09/19/2024 7:29 AM EDT) Specimen Type Bone Marrow 09/24/2024 2:37 PM EDT [facility] Clinical Indication Myelodysplastic Syndrome 09/24/2024 2:37 PM EDT [facility] Specimen Adequacy Adequate 025 2:37 PM EDT [facility] Chromosome Analysis Result Giemsa-banded metaphase cells from unstimulated bone marrow cultures showed a 46,XX[20] chromosome pattern. 09/24/2024 2:37 PM EDT [facility] Interpretation Normal female chromosome analysis. No clonal abnormalities were detected at current resolution. Clinical correlation is recommended. # cells counted = 20 # cells analyzed = 20 # cells karyotyped = 2 Band resolution: 450-525 09/24/2024 2:37 PM EDT [facility] Pathologist Signature Reviewed by: Corey Tejada 09/24/2024 2:37 PM EDT [facility] Bone Marrow Non-blood Collection / Unknown 09/19/2024 7:29 AM EDT 09/19/2024 12:35 PM EDT us New Mckinney MD LAB CYTOGENETICS ORDERABLES F inal Result [facility] [address] [place] [address] * Leukemia/Lymphoma - Immunophenotyping by Flow Cytometry (09/19/2024 7:29 AM EDT) Clinical Indication AML 09/22/2024 10:29 AM EDT [facility] Flow Cytometry Interpretation A. BONE MARROW FOR FLOW CYTOMETRY: - MIXED MARROW ELEMENTS WITH NO EVIDENCE OF INCREASED BLASTS OR ABNORMAL LYMPHOID POPULATIONS, SEE COMMENT. 09/22/2024 10:29 AM EDT [facility] Comments CD45/side scatter analysis [...] surface light chains 09/22/2024 10:29 AM EDT [facility] Disclaimer This test was developed and its performance characteristics determined by the Immuno-Molecular Pathology Laboratory at the [facility]. It has not been [...] on the report. 09/22/2024 10:29 AM EDT [facility] Pathologist Signature Reviewed by: Lisandra Epstein MD 09/22/2024 10:29 AM EDT [facility] MRD Indicated Test Not Indicated 12/2024 10:29 AM EDT [facility] Bone Marrow Specimen from bone marrow obtained by aspiration / Unknown Non-blood Collection / Unknown 09/19/2024 7:29 AM EDT 09/19/2024 12:13 PM EDT us New Mckinney MD LAB FLOW CYTOMETRY ORDERABLES Final Result [facility] [address] [place] [address] * Bone marrow exam (09/19/2024 7:29 AM EDT) Case Report Bone Marrow Case: [id number] Authorizing Provider: New Mckinney MD Collected: 09/19/2024 0729 Ordering Location: [facility] Hematology/BMT and Received: 09/19/2024 1216 Cellular Therapy Program Pathologist: Lisandra Epstein MD Specimens: A) - Bone Marrow Aspirate, right B) - Bone Marrow Biopsy, right C) - Peripheral Blood for Bone Marrow 3:15 PM EDT [facility] Cytogenetics Report, Addendum Chromosome Analysis Result Giemsa-banded metaphase cells from unstimulated bone marrow cultures showed a 46,XX[20] chromosome pattern. Interpretation Normal female chromosome analysis. No clonal abnormalities were detected at current resolution. Clinical correlation is recommended. 5 3:15 PM EDT [facility] Addendum electronically signed by Lisandra Epstein MD on 09/24/2024 at 1630 EDT Addendum Interpretation The following two (2) genes, TP53 and DNMT3A, with persistent variants have been detected in this bone marrow specimen. The variant, p.Zjz222Ncy, in TP53 gene and the variant, p.Ljm102bqw, in the RUNX 1 gene are not detectable at current cutoff and coverage established in this lab. 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 3:15 PM EDT [facility] at 1453 EDT Clinical Information AML 09/14 3:15 PM EDT [facility] CBC and Differential PERIPHERAL [...] blasts are not seen. 3:15 PM EDT [facility] Bone Marrow Differential BONE MARROW DIFFERENTIAL: 200 cells Normal Patient Neutrophils 15-50 34 Metamyelocytes 4-19 3 Myelocytes 1-18 10 Promyelocytes 1-8 1 Blasts 0-2 1 Monocytes 0-5 4 Erythroid 16-38 22 Lymphocytes 3-24 13 Eosinophils 0-6 8 Basophils 0-2 0 Plasma cells 0-4 4 Other 5 3:15 PM EDT [facility] Bone Marrow Aspirate and [...] are unremarkable. 3:15 PM EDT [facility] Special and Immunohistochemical Stains Special Stain: A1-1 Vazquez-Giemsa A1-2 Vazquez-Giemsa A1-3 Vazquez-Giemsa C1-1 Vazquez-Giemsa IHC: B1-2 CD34 All controls show appropriate reactivity. All immunohistochemis try, in situ hybridization, and histochemical tests were developed by and are performed at the [facility], [address] [place] [address]. All tests reported here, except those addressing [...] negativity on decalcified specimens. 3:15 PM EDT [facility] Flow Cytometry Interpretation MIXED MARROW ELEMENTS WITH NO EVIDENCE OF INCREASED BLASTS OR ABNORMAL LYMPHOID POPULATIONS ([id number]). 5 3:15 PM EDT [facility] CYTOGENETICS/MOLECULA R INTERPRETATION Correlation with cytogenetic/molec ular analysis is suggested. 3:15 PM EDT [facility] Gross Description B. RIGHT A single specimen is received in formalin labeled bone marrow biopsy right posterior iliac crest and consists of 2 piece(s) of red/white tissue measuring 2.1/0.3 cm in length 0.2 cm in diameter. The specimen is submitted in to Histology for decalcification and routine processing. Cold Time: <1m 3:15 PM EDT [facility] Note: A resident was involved in the service. I attest I examined the relevant preparations for the specimens and confirmed the diagnosis or interpretation. 3:15 PM EDT [facility] Bone Marrow Peripheral blood [...] PATHOLOGY ORDERABLES Edit ed Result - Final [facility] [address] [place] [address] * Hepatitis C Antibody w/Reflex to HCV Quant PCR (01/07/2024 8:42 AM EDT) Hepatitis C Antibody Negative Negative 01/07/2024 10:13 AM EDT [facility] Blood Venous blood specimen / Unknown Venipuncture / Unknown 01/07/2024 8:42 AM EDT 01/07/2024 9:25 AM EDT New Mckinney MD LAB BLOOD ORDERABLES Final Re sult [facility] [address] [place] [address] from Last 3 Months or Most Recently Relevant to Health Maintenance Insurance MEDICARE [facility] Care Teams Audio/Visual Operator Relationship Specialty Start Date End Date Jevon Vazquez MD [address] [place] [address] #1 #1 [place] [id number] PCP - General 03/23/22
--- OUTSIDE RECORDS SUMMARY | 2024-10-22 08:59 | XMS_ITS | Encounter Summary ---
Author Organization Healthcare Address [address] [place] [address] Care Team Providers Care Preschool Associate Teacher Name Role Phone Jevon Vazquez MD Primary Care Provider [phone] Encounter Details Date Type Department Care Team ([facility] st Contact Info) Description 09/01/2024 Telephone [facility] Hematology/BMT and Cellular Therapy Program [address] [address] Zonia Hoffman, EX ASSISTANT/PROGRAM DIRECTOR 800 [facility] [address] [place] [phone] Social History Tobacco Use Types Packs/Day Years [...] told her to cancel. Please confirm Callback number:[phone] documented in this encounter Plan of Treatment Upcoming Encounters Date Type Department Care Team (Late st Contact Info) Description 10/29/2024 1:00 PM EDT Clinical Support [facility] Hematology/BMT and Cellular Therapy Program [address] [address] 10/29/2024 1:30 PM EDT Office Visit [facility] Hematology/BMT and Cellular Therapy Program [address] [address] Zonia Hoffman, EX ASSISTANT/PROGRAM DIRECTOR 800 [facility] [address] [place] [address] 10/29/2024 3:00 PM EDT Appointment [facility] 2 [address] [place] [address] 10/30/2024 3:00 PM EDT Appointment [facility] 2 [address] [place] [address] 10/31/2024 3:00 PM EDT Appointment [facility] 2 [address] [place] [address] 11/01/2024 3:00 PM EDT Appointment [facility] 2 [address] [place] [address] 11/02/2024 3:00 PM EDT Appointment [facility] 2 [address] [place] [address] 2024 3:00 PM EDT Appointment [facility] 2 [address] [place] [address] 11/04/2024 3:00 PM EDT Appointment [facility] 2 [address] [place] [address] documented as of this encounter Visit Diagnoses Not on filedocumented in this encounter Additional Health Concerns Assessment Noted Time A fall risk assessment has been complete d for the patient 07/30/2024 8:29 AM EDT A Body Mass Index follow-up plan has been documented for the patient 05/28/2024 1:52 PM EST documented as of this encounter Care Teams Preschool Associate Teacher Relationship Specialty Start Date End Date Jevon Vazquez MD [address] [place] [address] #1 #1 [place] [address] PCP - General 03/23/22 documented as of this encounter
--- OUTSIDE RECORDS SUMMARY | 2024-10-22 08:59 | XMS_ITS | Encounter Summary ---
Author Organization Healthcare Address [address] [place] [address] Care Team Providers Care Ice Cutter Name Role Phone Jevon Vazquez MD Primary Care Provider [phone] Encounter Details Date Type Department Care Team [...] Hematology/BMT and Cellular Therapy Program [address] [address] 10/29/2024 1:30 PM EDT Office Visit [facility] Hematology/BMT and Cellular Therapy Program [address] [address] Zonia Hoffman, MOTOR VEHICLE OR CARAVAN SALESPERSON 800 [facility] [address] [place] [address] 10/29/2024 3:00 PM EDT Appointment [facility] 2 [address] [place] [address] 10/30/2024 3:00 PM EDT Appointment [facility] 2 [address] [place] [address] 10/31/2024 3:00 PM EDT Appointment [facility] 2 [address] [place] [address] 11/01/2024 3:00 PM EDT Appointment [facility] 2 [address] [place] [address] 11/02/2024 3:00 PM EDT Appointment [facility] 2 [address] [place] [address] 2024 3:00 PM EDT Appointment [facility] 2 [address] [place] [address] 11/04/2024 3:00 PM EDT Appointment [facility] 2 [address] [place] [address] documented as of this encounter Visit Diagnoses Not on filedocumented in this encounter Additional Health Concerns Assessment Noted Time A fall risk assessment has been complete d for the patient 09/30/2024 9:33 AM EDT A Body Mass Index follow-up plan has been documented for the patient 05/28/2024 1:52 PM EST documented as of this encounter Care Teams Ice Cutter Relationship Specialty Start Date End Date Jevon Vazquez MD [address] [place] [address] #1 #1 [place] [address] PCP - General 03/23/22 documented as of this encounter
--- OUTSIDE RECORDS SUMMARY | 2024-10-22 08:59 | XMS_ITS | Encounter Summary ---
Author Organization [facility] Address [address] [place] [address] Care Team Providers Care [facility] Owner Name Role Phone Jevon Vazquez MD Primary Care Provider [phone] Encounter Details Date Type Department Care Team ([facility] Contact Info) Description 09/19/2024 Telephone [facility] Hematology/BMT and Cellular Therapy Program [address] [place] [address] Romana Richmond RN [facility] Social History Tobacco [...] Upcoming Encounters Date Type Department Care Team ([facility] Contact Info) Description 10/29/2024 1:00 PM EDT Clinical Support [facility] Hematology/BMT and Cellular Therapy Program [address] [place] [address] 10/29/2024 1:30 PM EDT Office Visit [facility] Hematology/BMT and Cellular Therapy Program [address] [facility], [address] [place] [address] Zonia Hoffman, GROUND INTELLIGENCE OFFICER [address] [facility] [address] [place] [address] 10/29/2024 3:00 PM EDT Appointment [facility] 2 [address] [place] [address] 10/30/2024 3:00 PM EDT Appointment [facility] 2 [address] [place] [address] 10/31/2024 3:00 PM EDT Appointment [facility] 2 [address] [place] [address] 11/01/2024 3:00 PM EDT Appointment [facility] 2 [address] [place] [address] 11/02/2024 3:00 PM EDT Appointment [facility] 2 [address] [place] [address] 2024 3:00 PM EDT Appointment [facility] 2 [address] [place] [address] 11/04/2024 3:00 PM EDT Appointment [facility] 2 [address] [place] [address] documented as of this encounter Visit Diagnoses Not on filedocumented in this encounter Additional Health Concerns Assessment Noted Time A fall risk assessment has been complete d for the patient 09/19/2024 8:38 AM EDT A Body Mass Index follow-up plan has been documented for the patient 05/28/2024 1:52 PM EST documented as of this encounter Care Teams [facility] Owner Relationship Specialty Start Date End Date Jevon Vazquez MD [address] [place] [address] #1 #1 [place] [address] PCP - General 03/23/22 documented as of this encounter
--- OUTSIDE RECORDS SUMMARY | 2024-10-22 09:00 | XMS_ITS | Encounter Summary ---
Author Organization Healthcare Address [address] [place] [address] Care Team Providers Care Enamel Buffer Name Role Phone Jevon Vazquez MD Primary Care Provider [phone] Encounter Details Date Type Department Care Team [...] Hematology/BMT and Cellular Therapy Program [address] [address] 10/29/2024 1:30 PM EDT Office Visit [facility] Hematology/BMT and Cellular Therapy Program [address] [address] Zonia Hoffman, POWER PLANT MECHANIC 800 [facility] [address] [place] [address] 10/29/2024 3:00 PM EDT Appointment [facility] [address] [place] [address] 10/30/2024 3:00 PM EDT Appointment [facility] 2 [address] [place] [address] 10/31/2024 3:00 PM EDT Appointment [facility] 2 [address] [place] [address] 11/01/2024 3:00 PM EDT Appointment [facility] 2 [address] [place] [address] 11/02/2024 3:00 PM EDT Appointment [facility] 2 [address] [place] [address] 2024 3:00 PM EDT Appointment [facility] 2 [address] [place] [address] 11/04/2024 3:00 PM EDT Appointment [facility] 2 [address] [place] [address] documented as of this encounter Visit Diagnoses Not on filedocumented in this encounter Additional Health Concerns Assessment Noted Time A fall risk assessment has been complete d for the patient 09/30/2024 9:33 AM EDT A Body Mass Index follow-up plan has been documented for the patient 05/28/2024 1:52 PM EST documented as of this encounter Care Teams Enamel Buffer Relationship Specialty Start Date End Date Jevon Vazquez MD [address] [place] [address] #1 [address]1 [place] [address] PCP - General 03/23/22 documented as of this encounter
--- OUTSIDE RECORDS SUMMARY | 2024-10-22 09:00 | XMS_ITS | Encounter Summary ---
Author Organization Healthcare Address [address] [place] [address] Care Team Providers Care Early Childhood Worker Name Role Phone Jevon Vazquez MD [...] Hematology/BMT and Cellular Therapy Program [address] [address] 10/29/2024 1:30 PM EDT Office Visit [facility] Hematology/BMT and Cellular Therapy Program [address] [address] Zonia Hoffman, ONLINE AFFILIATE MARKETING MANAGER 800 [facility] [address] [place] [address] 10/29/2024 3:00 PM EDT Appointment [facility] 2 [address] [place] [address] 10/30/2024 3:00 PM EDT Appointment [facility] 2 [address] [place] [address] 10/31/2024 3:00 PM EDT Appointment [facility] 2 [address] [place] [address] 11/01/2024 3:00 PM EDT Appointment [facility] 2 [address] [place] [address] 11/02/2024 3:00 PM EDT Appointment [facility] 2 [address] [place] [address] 2024 3:00 PM EDT Appointment [facility] 2 [address] [place] [address] 11/04/2024 3:00 PM EDT Appointment [facility] 2 [address] [place] [address] documented as of this encounter Visit Diagnoses Not on filedocumented in this encounter Additional Health Concerns Assessment Noted Time A fall risk assessment has been complete d for the patient 09/19/2024 8:38 AM EDT A Body Mass Index follow-up plan has been documented for the patient 05/28/2024 1:52 PM EST documented as of this encounter Care Teams Early Childhood Worker Relationship Specialty Start Date End Date Jevon Vazquez MD [address] [place] [address] #1 #1 [place] [address] PCP - General 03/23/22 documented as of this encounter
--- OUTSIDE RECORDS SUMMARY | 2024-10-22 09:00 | XMS_ITS | Encounter Summary ---
Author Organization [facility] Address [address] [place] [address] Care Team Providers Care Lighting Equipment Operator Name Role Phone Jevon Vaqzuez MD Primary Care Provider [phone] Encounter Details Date Type Department Care Team ([facility] Contact Info) Description 10/08/2024 Orders Only [facility] Hematology/BMT and Cellular Therapy Program [address] [phone] 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, RN [facility] HEMAT[facility] PROGRAM CLINIC Acute [...] ([facility] Contact Info) Description 10/29/2024 1:00 PM EDT Clinical Support [facility] Hematology/BMT and Cellular Therapy Program [address] [phone] 10/29/2024 1:30 PM EDT Office Visit [facility] Hematology/BMT and Cellular Therapy Program [address] [address] Zonia Hoffman, PAY CLERK 800 [facility] [address] [place] [address] 10/29/2024 3:00 PM EDT Appointment [facility] 2 [address] [place] [address] 10/30/2024 3:00 PM EDT Appointment [facility] 2 [address] [place] [address] 10/31/2024 3:00 PM EDT Appointment [facility] 2 [address] [place] [address] 11/01/2024 3:00 PM EDT Appointment [facility] 2 [address] [place] [address] 11/02/2024 3:00 PM EDT Appointment [facility] 2 [address] [place] [address] 2024 3:00 PM EDT Appointment [facility] 2 [address] [place] [address] 11/04/2024 3:00 PM EDT Appointment [facility] 2 [address] [place] [address] Scheduled Orders Name Type Priority Associated Diagnoses [...] documented as of this encounter Care Teams Lighting Equipment Operator Relationship Specialty Start Date End Date Jevon Vazquez MD [address] [place] [address] #1 #1 [place] [address] PCP - General 03/23/22 documented as of this encounter
--- OUTSIDE RECORDS SUMMARY | 2024-10-22 09:00 | XMS_ITS | Encounter Summary ---
Author Organization Healthcare Address [address] [place] [address] Care Team Providers Care Superintendent Stevedoring Name Role Phone Jevon Vazquez MD Primary Care Provider [phone] Encounter Details Date Type Department Care Team [...] Hematology/BMT and Cellular Therapy Program [address] [address] 10/29/2024 1:30 PM EDT Office Visit [facility] Hematology/BMT and Cellular Therapy Program [address] [address] Zonia Hoffman, BROADCAST OPERATIONS MANAGER 800 [facility] [address] [place] [address] 10/29/2024 3:00 PM EDT Appointment [facility] 2 [address] [place] [address] 10/30/2024 3:00 PM EDT Appointment [facility] 2 [address] [place] [address] 10/31/2024 3:00 PM EDT Appointment [facility] 2 [address] [place] [address] 11/01/2024 3:00 PM EDT Appointment [facility] 2 [address] [place] [address] 11/02/2024 3:00 PM EDT Appointment [facility] 2 [address] [place] [address] 2024 3:00 PM EDT Appointment [facility] 2 [address] [place] [address] 11/04/2024 3:00 PM EDT Appointment [facility] 2 [address] [place] [address] documented as of this encounter Visit Diagnoses Not on filedocumented in this encounter Additional Health Concerns Assessment Noted Time A fall risk assessment has been complete d for the patient 09/19/2024 8:38 AM EDT A Body Mass Index follow-up plan has been documented for the patient 05/28/2024 1:52 PM EST documented as of this encounter Care Teams Superintendent Stevedoring Relationship Specialty Start Date End Date Jevon Vazquez MD [address] [place] [address] #1 [address]1 [place] [address] PCP - General 03/23/22 documented as of this encounter
--- OUTSIDE RECORDS SUMMARY | 2024-10-22 09:00 | XMS_ITS | Encounter Summary ---
Author Organization Healthcare Address [address] [place] [address] Care Team Providers Care Screen Printing Cloth Spreader Name Role Phone Jevon Vazquez MD Primary Care Provider [phone] Encounter Details Date Type Department Care Team [...] Hematology/BMT and Cellular Therapy Program [address] [address] 10/29/2024 1:30 PM EDT Office Visit [facility] Hematology/BMT and Cellular Therapy Program [address] [address] Zonia Hoffman, CHAIRMAN EMERITUS 800 [facility] [address] [place] [address] 10/29/2024 3:00 PM EDT Appointment [facility] 2 [address] [place] [address] 10/30/2024 3:00 PM EDT Appointment [facility] 2 [address] [place] [address] 10/31/2024 3:00 PM EDT Appointment [facility] 2 [address] [place] [address] 11/01/2024 3:00 PM EDT Appointment [facility] 2 [address] [place] [address] 11/02/2024 3:00 PM EDT Appointment [facility] 2 [address] [place] [address] 2024 3:00 PM EDT Appointment [facility] 2 [address] [place] [address] 11/04/2024 3:00 PM EDT Appointment [facility] 2 [address] [place] [address] documented as of this encounter Visit Diagnoses Not on filedocumented in this encounter Additional Health Concerns Assessment Noted Time A fall risk assessment has been complete d for the patient 09/19/2024 8:38 AM EDT A Body Mass Index follow-up plan has been documented for the patient 05/28/2024 1:52 PM EST documented as of this encounter Care Teams Screen Printing Cloth Spreader Relationship Specialty Start Date End Date Jevon Vazquez MD [address] [place] [address] #1 [address]1 [place] [address] PCP - General 03/23/22 documented as of this encounter
[2024-10-22 09:11] LABS: Hematocrit 24.8 % (37.0-47.0); Hemoglobin 8.5 g/dL (12.2-16.2); Immature Granulocytes % 0.3 %; Mean Corpuscular HGB Conc 34.3 g/dL (31.8-35.4); Mean Corpuscular Hemoglobin 38.3 pg (27.0-31.2); Mean Corpuscular Volume 111.7 fl (81-99); Nucleated Red Blood Cells % 0 %; Red Blood Count 2.22 M/mm3 (4.20-5.40); Red Cell Distribution Width-SD 71.4 fL; White Blood Count 2.9 K/mm3 (4.8-10.8)
[2024-10-22 09:15] LABS: Platelet Count 16 K/mm3 (142-424)
[2024-10-22] MEDS: SODIUM CHLORIDE 0.9% 10ML FLUSH SYRINGE 10 ML IV (09:18)
[2024-10-22 09:23] LABS: Alanine Aminotransferase 13 U/L (12-78); Albumin Level 3.7 g/dl (3.5-5.0); Albumin/Globulin Ratio 1.7 (1.1-1.8); Alkaline Phosphatase 40 U/L (38-126); Anion Gap 13.9 mEq/L (5-15); Aspartate Amino Transferase 33 U/L (14-36); Bilirubin,Total 0.5 mg/dl (0.2-1.3); Blood Urea Nitrogen 33 mg/dl (7-17); Calcium 10.0 mg/dl (8.4-10.2); Carbon Dioxide 25 mmol/L (22.0-30.0); Chloride 104 mmol/L (98-107); Creatinine,Serum 1.10 mg/dl (0.52-1.04); Estimated Glomerular Filt Rate 49 ml/min (>60); GFR (African American) 59 ML/MIN (>60); Globulin 2.2 g/dL (1.3-3.2); Glucose 135 mg/dl (74-100); Potassium 3.9 mmoL/L (3.5-5.1); Sodium 139 mmol/L (136-145); Total Protein,Serum 5.9 g/dl (6.3-8.2)
== END 2024-10-22 09:20 | disposition home or self-care (01) ==
LOC: INF 08:56
PROVIDERS: PCP Family Medicine; Visit Provider Internal Medicine Medical Oncology
DX: C92.00 Acute myeloblastic leukemia, not having achieved remission (principal)
CPT/HCPCS: 36591; 80053; 85025; J1642

== ENCOUNTER 2024-10-24 08:48 | Outpatient (CLI) | payer MEDICARE, BC, SELFPAY ==
--- OUTSIDE RECORDS SUMMARY | 2024-09-19 07:30 | XMS_ITS | Encounter Summary ---
Author Organization [facility] Address [address] [place] [address] Care Team Providers Care Baby Sitter Name Role Phone Jevon Vazquez MD Primary Care Provider [phone] Reason for Visit * Reason Comments Nurse Visit Encounter Details Date Type Department Care Team ([facility] Contact Info) Description 09/19/2024 7:30 AM EDT Clinical Support [facility] Hematology/BMT and Cellular Therapy Program [address] [phone] Social History Tobacco Use Types Packs/Day Years [...] CC Hematology/BMT and Cellular Therapy Program [address] [phone] 10/29/2024 1:30 PM EDT Office Visit [facility] Hematology/BMT and Cellular Therapy Program [address] [phone] Zonia Hoffman, BARREL ASSEMBLER 800 [facility] [address] [place] [address] 10/29/2024 3:00 PM EDT Appointment [facility] 2 [address] [place] [address] 10/30/2024 3:00 PM EDT Appointment [facility] 2 [address] [place] [address] 10/31/2024 3:00 PM EDT Appointment [facility] 2 [address] [place] [address] 11/01/2024 3:00 PM EDT Appointment [facility] 2 [address] [place] [address] 11/02/2024 3:00 PM EDT Appointment [facility] 1 [address] [place] [address] 2024 3:00 PM EDT Appointment [facility] 2 [address] [place] [address] 11/04/2024 3:00 PM EDT Appointment [facility] 2 [address] [place] [address] 11/27/2024 12:30 PM EDT Clinical Support [facility] Hematology/BMT and Cellular Therapy Program [address] [address] 11/27/2024 1:00 PM EDT Office Visit [facility] Hematology/BMT and Cellular Therapy Program [address] [address] Zonia Hoffman, BARREL ASSEMBLER 800 [facility] [address] [place] [address] documented as of this encounter Visit Diagnoses Not on filedocumented in this encounter Additional Health Concerns Assessment Noted Time A fall risk assessment has been complete d for the patient 09/19/2024 8:38 AM EDT A Body Mass Index follow-up plan has been documented for the patient 05/28/2024 1:52 PM EST documented as of this encounter Care Teams Baby Sitter Relationship Specialty Start Date End Date Jevon Vazquez MD [address] [place] [address] #1 #1 [place] [address] PCP - General 03/23/22 documented as of this encounter
--- OUTSIDE RECORDS SUMMARY | 2024-09-19 09:30 | XMS_ITS | Encounter Summary ---
Author Organization Healthcare Address [address] [place] [address] Care Team Providers Care Pet Counselor Name Role Phone Jevon Vazquez MD Primary Care Provider [phone] Reason for Visit * Reason Comments Follow-up Encounter Details Date Type Department Care Team (Latest Contact Info) Description 09/19/2024 9:30 AM EDT Clinical Support [facility] Cancer Acute Treatment Clinic [address] [place] [address] Acute myeloid leukemia not having achieved remission [...] [facility] Hematology/BMT and Cellular Therapy Program [address] [place] [address] 10/29/2024 1:30 PM EDT Office Visit [facility] Hematology/BMT and Cellular Therapy Program [address] [address] Zonia Hoffman, PERSONNEL PSYCHOLOGIST 800 [facility] [address] [place] [address] 10/29/2024 3:00 PM EDT Appointment [facility] 2 [address] [place] [address] 10/30/2024 3:00 PM EDT Appointment [facility] 2 [address] [place] [address] 10/31/2024 3:00 PM EDT Appointment [facility] 2 [address] [place] [address] 11/01/2024 3:00 PM EDT Appointment [facility] 2 [address] [place] [address] 11/02/2024 3:00 PM EDT Appointment [facility] 1 [address] [place] [address] 2024 3:00 PM EDT Appointment [facility] 2 [address] [place] [address] 11/04/2024 3:00 PM EDT Appointment [facility] Infusion Clinic 2 [address] [place] [address] 11/27/2024 12:30 PM EDT Clinical Support [facility] Hematology/BMT and Cellular Therapy Program [address] [place] [address] 11/27/2024 1:00 PM EDT Office Visit [facility] Hematology/BMT and Cellular Therapy Program [address] [address] Zonia Hoffman, PERSONNEL PSYCHOLOGIST 800 [facility] [address] [place] [address] documented as of this encounter Procedures Procedure Name Priority Date/Time Associated Diagnosis Comments PLATELET COUNT, BLOOD STAT 09/19/2024 10:04 AM EDT PREPARE PLATELETS Routine 09/19/2024 9:0 8 AM EDT documented in this encounter Results * (ABNORMAL) Platelet count (09/19/2024 10:04 AM EDT) Platelet Count 61(L) 155 - 369 10*3/uL LAB HEMATOLOGY METHOD 09/19/2024 10:19 AM EDT [facility] Blood Blood sample taken from central line / Unknown (Port) Long-term Catheter / Unknown 09/19/2024 10:04 AM EDT 09/19/2024 10:18 AM EDT us New Mckinney MD LAB BLOOD ORDERABLES Final Re sult [facility] [address] [place] [address] * Transfuse platelets, Irradiated (09/19/2024 10:02 AM EDT) us Lexi Ferraro APRN BLOOD TRANSFUSION ORDERABL ES Final Result * Prepare Leukocyte Reduced Platelets (09/19/2024 9:08 AM EDT) Product Code [id number] CH BLOO D BANK Dispense Status Transfused BLOOD BANK Blood Expiration Date [id number] BLOOD BANK Unit Number [id number] CH B LOOD BANK Product Blood Type 6200 CH BLOOD BANK Blood Type A+ CH BLOOD BANK us Provider Not In System BLOOD BANK PRODUCT ORD ERABLES Final Result BLOOD BANK [address] [place] [address], documented in this encounter Visit Diagnoses Diagnosis [...] documented as of this encounter Care Teams Pet Counselor Relationship Specialty Start Date End Date Jevon Vazquez MD [address] [place] [address] #1 [address]1 [place] [address] PCP - General 03/23/22 documented as of this encounter
--- OUTSIDE RECORDS SUMMARY | 2024-09-19 12:00 | XMS_ITS | Encounter Summary ---
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) Procedures Leukemia/Lymphoma - Immunophenotyping by Flow Cytometry New Mckinney MD [address] [facility] [address] [address] Phone: tel: fax: Referral ID Status Reason Start Date Expiration Date V isits Requested Visits Authorized [id number] Authorized 09/11/2024 03/13/2026 1 1 Encounter Details Date Type Department Care Team (Latest Contact Info) Description 09/19/2024 12:00 PM EDT Procedure Visit [facility] Hematology/BMT and Cellular Therapy Program [address] [phone] Lexi Ferraro, RODDY 800 [facility] [address] [address] Acute myeloid leukemia not having [...] to surronding structures. Alternatives discussed: Delayed treatment [place] protocol: Procedure explained and questions answered to [...] Upcoming Encounters Date Type Department Care Team ([facility] st Contact Info) Description 10/29/2024 1:00 PM EDT Clinical Support [facility] Hematology/BMT and Cellular Therapy Program [address] [phone] 10/29/2024 1:30 PM EDT Office Visit [facility] Hematology/BMT and Cellular Therapy Program [address] [phone] Zonia Hoffman APRN 800 [facility] [address] [place] [phone] 10/29/2024 3:[address] [facility] [address] [place] [address] 10/30/2024 3:[address] [facility] 2 [address] [place] [address] 10/31/2024 3:[address] [facility] 2 [address] [place] [address] 11/01/2024 3:00 PM EDT Appointment [facility] 2 [address] [place] [address] 11/02/2024 3:00 PM EDT Appointment [facility] 1 [address] [place] [address] 2024 3:00 PM EDT Appointment [facility] 2 [address] [place] [address] 11/04/2024 3:00 PM EDT Appointment [facility] 2 [address] [place] [address] 11/27/2024 12:30 PM EDT Clinical Support [facility] Hematology/BMT and Cellular Therapy Program [address] [place] [address] 11/27/2024 1:00 PM EDT Office Visit [facility] Hematology/BMT and Cellular Therapy Program [address] [phone] Zonia Hoffman, PEARL [employer]UE OPERATOR 800 [facility] [address] [place] [phone] documented as of this encounter Procedures Procedure [...] to surronding structures. Alternatives discussed: Delayed treatment [place] protocol: Procedure explained and questions answered to [...] at the site and an 11 gauge [employer] needle was inserted into the right posterior [...] Type Bone Marrow 09/24/2024 2:37 PM EDT [facility] Clinical Indication Myelodysplastic Syndrome 09/24/2024 2:37 PM EDT [facility] Specimen Adequacy Adequate 025 2:37 PM EDT [facility] Chromosome Analysis Result Giemsa-banded metaphase cells from unstimulated bone marrow cultures showed a 46,XX[20] chromosome pattern. 09/24/2024 2:37 PM EDT [facility] Interpretation Normal female chromosome analysis. No clonal abnormalities were detected at current resolution. Clinical correlation is recommended. # cells counted = 20 # cells analyzed = 20 # cells karyotyped = 2 Band resolution: 450-525 09/24/2024 2:37 PM EDT [facility] Pathologist Signature Reviewed by: Corey Tejada 09/24/2024 2:37 PM EDT [facility] Bone Marrow Non-blood Collection / Unknown 09/19/2024 7:29 AM EDT 09/19/2024 12:35 PM EDT us New Mckinney MD LAB CYTOGENETICS ORDERABLES F inal Result [facility] [address] [place] [address] * Myeloid Focused Panel, 50 gene (09/19/2024 7:29 AM EDT) Interpretation The following two (2) genes, TP53 and DNMT3A, with persistent variants have been detected in this bone marrow specimen. The variant, p.[id number], in TP53 gene and the variant, p.Nex266pip, in the RUNX 1 gene are not detectable at current cutoff and coverage established in this lab. Gene: TP53 Mutation: c.814G>A; p.Yxt379New Allele Frequency (%): 37% (45% Dec 2023) ID: [id number] Gene: DNMT3A Mutation: c.1522delC; p.[id number] 3 Allele Frequency (%): 36% (48% Dec 2023) Additional Details on Mutation Identified: Gene Transcript Genome Chrom Coordinate RefVar DNMT3A [id number] Hg19 2 [id number] delC TP53 [id number] Hg19 17 [id number] G>A 09/29/2024 4:05 PM EDT [facility] Methodology The following 50 genes were [...] then sequenced on the Illumina NextSeq 2000 ([employer] [place]). A custom bioinformatics pipeline aligns [...] of hematologic malignancies. 09/29/2024 4:05 PM EDT [facility] Disclaimer This test was developed and [...] clinical laboratory testing. 09/29/2024 4:05 PM EDT [facility] Pathologist Signature Reviewed by: Corey Tejada 09/29/2024 4:05 PM EDT [facility] Bone Marrow Specimen from bone marrow obtained by aspiration / Unknown Non-blood Collection / Unknown 09/19/2024 7:29 AM EDT 09/19/2024 12:03 PM EDT us New Mckinney MD LAB MOLECULAR DIAGNOSTICS ORD ERABLES Final Result [facility] [address] [place] [address], * Leukemia/Lymphoma - Immunophenotyping by Flow Cytometry (09/19/2024 7:29 AM EDT) Clinical Indication AML 09/22/2024 10:29 AM EDT [facility] Flow Cytometry Interpretation A. BONE MARROW FOR FLOW CYTOMETRY: - MIXED MARROW ELEMENTS WITH NO EVIDENCE OF INCREASED BLASTS OR ABNORMAL LYMPHOID POPULATIONS, SEE COMMENT. 09/22/2024 10:29 AM EDT [facility] Comments CD45/side scatter analysis [...] surface light chains 09/22/2024 10:29 AM EDT [facility] Disclaimer This test was [...] on the report. 09/22/2024 10:29 AM EDT [facility] Pathologist Signature Reviewed by: Lisandra Epstein MD 09/22/2024 10:29 AM EDT [facility] MRD Indicated Test Not Indicated 12/2024 10:29 AM EDT [facility] Bone Marrow Specimen from bone marrow obtained by aspiration / Unknown Non-blood Collection / Unknown 09/19/2024 7:29 AM EDT 09/19/2024 12:13 PM EDT us New Mckinney MD LAB FLOW CYTOMETRY ORDERABLES Final Result [facility] [address] [place] [address] * (ABNORMAL) CBC and differential (09/19/2024 7:29 AM EDT) WBC Count 2.70(L) 3.70 - 10.30 10*3/uL LAB HEMATOLOGY METHOD 09/19/2024 9:13 AM EDT [facility] RBC Count 1.86(L) 3.90 - 5.20 10*6/uL LAB HEMATOLOGY METHOD 09/19/2024 9:13 AM EDT [facility] HGB 7.1(L) 11.2 - 15.7 g/dL LAB HEMATOLOGY METHOD 09/19/2024 9:13 AM EDT [facility] HCT 21.5(L) 34.0 - 45.0 % LAB HEMATOLOGY METHOD 09/19/2024 9:13 AM EDT [facility] Platelet Count 14(LL) 155 - 369 10*3/uL LAB HEMATOLOGY METHOD 09/19/2024 9:13 AM EDT [facility] MCV 116(H) 79 - 98 fL LAB HEMATOLOGY METHOD 09/19/2024 9:13 AM EDT [facility] MCH 38.2(H) 26.0 - 32.0 pg LAB HEMATOLOGY METHOD 09/19/2024 9:13 AM EDT [facility] MCHC 33.0 30.7 - 35.5 g/dL LAB HEMATOLOGY METHOD 09/19/2024 9:13 AM EDT [facility] RDW 21.8(H) 11.5 - 14.5 % LAB HEMATOLOGY METHOD 09/19/2024 9:13 AM EDT [facility] MPV 13.5(H) 8.8 - 12.5 fL LAB HEMATOLOGY METHOD 09/19/2024 9:13 AM EDT [facility] nRBC 0.0 <=0.0 per 100 WBCs LAB HEMATOLOGY METHOD 09/19/2024 9:13 AM EDT [facility] Differential Type Automated LAB HEMATOLOGY METHOD 09/19/2024 9:13 AM EDT [facility] Neutrophils % 51 % LAB HEMATOLOGY METHOD 09/19/2024 9:13 AM EDT [facility] Lymphocytes % 41 % LAB HEMATOLOGY METHOD 09/19/2024 9:13 AM EDT [facility] Monocytes % 7 % LAB HEMATOLOGY METHOD 09/19/2024 9:13 AM EDT [facility] Eosinophils % 1 % LAB HEMATOLOGY METHOD 09/19/2024 9:13 AM EDT [facility] Basophils % 0 % LAB HEMATOLOGY METHOD 09/19/2024 9:13 AM EDT [facility] Immature Granulocytes % 0 % LAB HEMATOLOGY METHOD 09/19/2024 9:13 AM EDT [facility] Neutrophils Absolute 1.35(L) 1.60 - 6.10 10*3/uL LAB HEMATOLOGY METHOD 09/19/2024 9:13 AM EDT [facility] Lymphocytes Absolute 1.10(L) 1.20 - 3.90 10*3/uL LAB HEMATOLOGY METHOD 09/19/2024 9:13 AM EDT [facility] Monocytes Absolute 0.20(L) 0.30 - 0.90 10*3/uL LAB HEMATOLOGY METHOD 09/19/2024 9:13 AM EDT [facility] Eosinophils Absolute 0.03 0.00 - 0.50 10*3/uL LAB HEMATOLOGY METHOD 09/19/2024 9:13 AM EDT [facility] Basophils Absolute 0.01 0.00 - 0.10 10*3/uL LAB HEMATOLOGY METHOD 09/19/2024 9:13 AM EDT [facility] Immature Granulocytes Absolute 0.01 0.00 - 0.06 10*3/uL LAB HEMATOLOGY METHOD 09/19/2024 9:13 AM EDT [facility] Blood Blood sample taken from central line / Unknown (Port) Long-term Catheter / Unknown 09/19/2024 7:29 AM EDT 09/19/2024 8:08 AM EDT Narrative [facility] - 09/19/2024 9:13 AM EDT Therapeutic decision making should be based on absolute values, rather than percentages. New Mckinney MD LAB BLOOD ORDERABLES Final Re sult [facility] [address] [place] [address] * Bone marrow exam (09/19/2024 7:29 AM EDT) Case Report Bone Marrow Case: [id number] Authorizing Provider: New Mckinney MD Collected: 09/19/2024 0729 Ordering Location: [facility] Hematology/BMT and Received: 09/19/2024 [facility] Cellular Therapy Program Pathologist: Lisandra Epstein MD Specimens: A) - Bone Marrow Aspirate, right B) - Bone Marrow Biopsy, right C) - Peripheral Blood for Bone Marrow 5 3:15 PM EDT [facility] Cytogenetics Report, Addendum Chromosome Analysis Result Giemsa-banded metaphase cells from unstimulated bone marrow cultures showed a 46,XX[20] chromosome pattern. Interpretation Normal female chromosome analysis. No clonal abnormalities were detected at current resolution. Clinical correlation is recommended. 5 3:15 PM EDT [facility] Addendum electronically signed by Lisandra Epstein MD on 09/24/2024 at 1630 EDT Addendum Interpretation The following two (2) genes, TP53 and DNMT3A, with persistent variants have been detected in this bone marrow specimen. The variant, p.[id number], in TP53 gene and the variant, p.Cax606mbc, in the RUNX 1 gene are not detectable at current cutoff and coverage established in this lab. Gene: TP53 Mutation: c.814G>A; p.Oqr386Red Allele Frequency (%): 37% (45% Dec 2023) ID: [id number] Gene: DNMT3A Mutation: c.1522delC; p.[id number] 43 Allele Frequency (%): 36% (48% Dec 2023) Additional Details on Mutation Identified: 3:15 PM EDT [facility] Addendum electronically signed by Lisandra Epstein MD on 09/30/2024 at 1515 EDT Final Diagnosis PERIPHERAL BLOOD AND BONE MARROW, RIGHT POSTERIOR ILIAC CREST, (ASPIRATE SMEAR, AND CORE BIOPSY): - HYPOCELLULAR BONE MARROW WITH MARKEDLY DECREASED MEGAKARYOCYTES; NO SIGNIFICANT DYSPOIESIS OR INCREASE IN BLASTS. 3:15 PM EDT [facility] at 1453 EDT Clinical Information AML 09/14 3:15 PM EDT [facility] CBC and Differential PERIPHERAL [...] blasts are not seen. 3:15 PM EDT [facility] Bone Marrow Differential BONE MARROW DIFFERENTIAL: 200 cells Normal Patient Neutrophils 15-50 34 Metamyelocytes 4-19 3 Myelocytes 1-18 10 Promyelocytes 1-8 1 Blasts 0-2 1 Monocytes 0-5 4 Erythroid 16-38 22 Lymphocytes 3-24 13 Eosinophils 0-6 8 Basophils 0-2 0 Plasma cells 0-4 4 Other 3:15 PM EDT [facility] Bone Marrow Aspirate and [...] Bone trabeculae are unremarkable. 3:15 PM EDT [facility] Special and Immunohistochemical Stains Special Stain: A1-1 Vazquez-Giemsa A1-2 Vazquez-Giemsa A1-3 Vazquez-Giemsa C1-1 Vazquez-Giemsa IHC: B1-2 CD34 All controls show appropriate reactivity. All immunohistochemis try, in situ hybridization, and histochemical tests were developed by and are performed at the [facility], [address] [place] [address]. All tests reported here, except those addressing [...] negativity on decalcified specimens. 3:15 PM EDT [facility] Flow Cytometry Interpretation MIXED MARROW ELEMENTS WITH NO EVIDENCE OF INCREASED BLASTS OR ABNORMAL LYMPHOID POPULATIONS ([id number]). 3:15 PM EDT [facility] CYTOGENETICS/MOLECULA R INTERPRETATION Correlation with cytogenetic/molec ular analysis is suggested. 3:15 PM EDT [facility] Gross Description B. RIGHT A single specimen is received in formalin labeled bone marrow biopsy right posterior iliac crest and consists of 2 piece(s) of red/white tissue measuring 2.1/0.3 cm in length 0.2 cm in diameter. The specimen is submitted in to Histology for decalcification and routine processing. Cold Time: <1m 3:15 PM EDT [facility] Note: A resident was involved in the service. I attest I examined the relevant preparations for the specimens and confirmed the diagnosis or interpretation. 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
--- OUTSIDE RECORDS SUMMARY | 2024-09-30 09:00 | XMS_ITS | Encounter Summary ---
Author Organization Healthcare Address [address] [place] [address] Care Team Providers Care Converter Operator Name Role Phone Jevon Vazquez MD Primary Care Provider [phone] Reason for Visit * Reason Comments Labs Only Encounter Details Date Type Department Care Team ([facility] Contact Info) Description 09/30/2024 9:00 AM EDT Clinical Support [facility] Hematology/BMT and Cellular Therapy Program [address] [phone] Jyoti Kemp Acute myeloid leukemia not having [...] Team ([facility] Contact Info) Description 10/29/2024 1:00 PM EDT Clinical Support [facility] Hematology/BMT and Cellular Therapy Program [address] [phone] 10/29/2024 1:30 PM EDT Office Visit [facility] Hematology/BMT and Cellular Therapy Program [address] [phone] Zonia Hoffman, EDGE STAINER 800 [facility] [address] [place] [phone] 10/29/2024 3:00 PM EDT Appointment [facility] 2 [address] [place] [address] 10/30/2024 3:00 PM EDT Appointment [facility] 2 [address] [place] [address] 10/31/2024 3:00 PM EDT Appointment [facility] 2 [address] [place] [address] 11/01/2024 3:00 PM EDT Appointment [facility] 2 [address] [place] [address] 11/02/2024 3:00 PM EDT Appointment [facility] 1 [address] [place] [address] 2024 3:00 PM EDT Appointment [facility] 2 [address] [place] [address] 11/04/2024 3:00 PM EDT Appointment [facility] 2 [address] [place] [address] 11/27/2024 12:30 PM EDT Clinical Support [facility] Hematology/BMT and Cellular Therapy Program [address] [place] [address] 11/27/2024 1:00 PM EDT Office Visit [facility] Hematology/BMT and Cellular Therapy Program [address] [place] [address] Zonia Hoffman, EDGE STAINER 800 [facility] [address] [place] [phone] documented as of this encounter Procedures Procedure [...] - 99 mg/dL 09/30/2024 10:20 AM EDT [facility] BUN, Plasma 21 8 - 23 mg/dL 09/30/2024 10:20 AM EDT [facility] Creatinine, Plasma 1.00 0.60 - 1.10 mg/dL 09/30/2024 10:20 AM EDT [facility] BUN/Creatinine Ratio 21 09/30/2024 10:20 AM EDT [facility] Sodium, Plasma 137 136 - 145 mmol/L 09/30/2024 10:20 AM EDT [facility] Potassium, Plasma 3.8 3.6 - 4.9 mmol/L 09/30/2024 10:20 AM EDT [facility] Chloride, Plasma 107 97 - 107 mmol/L 09/30/2024 10:20 AM EDT [facility] CO2, Plasma 22 22 - 29 mmol/L 09/30/2024 10:20 AM EDT [facility] Anion Gap 8 6 - 16 mmol/L 09/30/2024 10:20 AM EDT [facility] Total Calcium, Plasma 9.8 8.9 - 10.2 mg/dL 09/30/2024 10:20 AM EDT [facility] Total Protein 5.9(L) 6.3 - 7.9 g/dL 09/30/2024 10:20 AM EDT [facility] Albumin, Plasma 3.8 3.5 - 5.2 g/dL 09/30/2024 10:20 AM EDT [facility] AST, Plasma 28 10 - 35 U/L 09/30/2024 10:20 AM EDT [facility] ALT, Plasma 14 10 - 35 U/L 09/30/2024 10:20 AM EDT [facility] Alkaline Phosphatase, Plasma 34(L) 46 - 142 U/L 09/30/2024 10:20 AM EDT [facility] Total Bilirubin, Plasma 0.3 0.2 - 1.1 mg/dL 09/30/2024 10:20 AM EDT [facility] eGFRcr 59.6 mL/min/1.7 3m*2 09/30/2024 10:20 AM EDT [facility] Comment:Reported eGFRcr in m L/min/1.73m2 is based the CKD-EPI 2020 equation that does not use a race coefficient. Blood Venous blood specimen / Unknown (Port) Long-term Catheter / Unknown 09/30/2024 9:11 AM EDT 09/30/2024 9:50 AM EDT Zonia Hoffman APRN LAB BLOOD ORDERABLES Final Res ult [facility] [address] [place] [address] * (ABNORMAL) CBC and Differential (09/30/2024 9:11 AM EDT) WBC Count 3.34(L) 3.70 - 10.30 10*3/uL LAB HEMATOLOGY METHOD 09/30/2024 11:07 AM EDT [facility] RBC Count 1.91(L) 3.90 - 5.20 10*6/uL LAB HEMATOLOGY METHOD 09/30/2024 11:07 AM EDT [facility] HGB 7.7(L) 11.2 - 15.7 g/dL LAB HEMATOLOGY METHOD 09/30/2024 11:07 AM EDT [facility] HCT 22.8(L) 34.0 - 45.0 % LAB HEMATOLOGY METHOD 09/30/2024 11:07 AM EDT [facility] Platelet Count 17(LL) 155 - 369 10*3/uL LAB HEMATOLOGY METHOD 09/30/2024 11:07 AM EDT [facility] MCV 119(H) 79 - 98 fL LAB HEMATOLOGY METHOD 09/30/2024 11:07 AM EDT [facility] MCH 40.3(H) 26.0 - 32.0 pg LAB HEMATOLOGY METHOD 09/30/2024 11:07 AM EDT [facility] MCHC 33.8 30.7 - 35.5 g/dL LAB HEMATOLOGY METHOD 09/30/2024 11:07 AM EDT [facility] RDW 18.7(H) 11.5 - 14.5 % LAB HEMATOLOGY METHOD 09/30/2024 11:07 AM EDT [facility] MPV 11.1 8.8 - 12.5 fL LAB HEMATOLOGY METHOD 09/30/2024 11:07 AM EDT [facility] nRBC 0.0 <=0.0 per 100 WBCs LAB HEMATOLOGY METHOD 09/30/2024 11:07 AM EDT [facility] Differential Type Automated LAB HEMATOLOGY METHOD 09/30/2024 11:07 AM EDT [facility] Neutrophils % 65 % LAB HEMATOLOGY METHOD 09/30/2024 11:07 AM EDT [facility] Lymphocytes % 26 % LAB HEMATOLOGY METHOD 09/30/2024 11:07 AM EDT [facility] Monocytes % 7 % LAB HEMATOLOGY METHOD 09/30/2024 11:07 AM EDT [facility] Eosinophils % 1 % LAB HEMATOLOGY METHOD 09/30/2024 11:07 AM EDT [facility] Basophils % 1 % LAB HEMATOLOGY METHOD 09/30/2024 11:07 AM EDT [facility] Immature Granulocytes % 0 % LAB HEMATOLOGY METHOD 09/30/2024 11:07 AM EDT [facility] Neutrophils Absolute 2.17 1.60 - 6.10 10*3/uL LAB HEMATOLOGY METHOD 09/30/2024 11:07 AM EDT [facility] Lymphocytes Absolute 0.87(L) 1.20 - 3.90 10*3/uL LAB HEMATOLOGY METHOD 09/30/2024 11:07 AM EDT [facility] Monocytes Absolute 0.24(L) 0.30 - 0.90 10*3/uL LAB HEMATOLOGY METHOD 09/30/2024 11:07 AM EDT [facility] Eosinophils Absolute 0.03 0.00 - 0.50 10*3/uL LAB HEMATOLOGY METHOD 09/30/2024 11:07 AM EDT [facility] Basophils Absolute 0.02 0.00 - 0.10 10*3/uL LAB HEMATOLOGY METHOD 09/30/2024 11:07 AM EDT [facility] Immature Granulocytes Absolute 0.01 0.00 - 0.06 10*3/uL LAB HEMATOLOGY METHOD 09/30/2024 11:07 AM EDT [facility] Blood Venous blood specimen / Unknown (Port) Long-term Catheter / Unknown 09/30/2024 9:11 AM EDT 09/30/2024 9:34 AM EDT Narrative [facility] - 09/30/2024 11:07 AM EDT Therapeutic decision making should be based on absolute values, rather than percentages. 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
--- OUTSIDE RECORDS SUMMARY | 2024-09-30 09:30 | XMS_ITS | Encounter Summary ---
Author Organization Healthcare Address [address] [place] [address] Care Team Providers Care Employment Instructional Associate Name Role Phone Jevon Vazquez MD Primary Care Provider [phone] Reason for Visit * Reason Comments Acute myeloid leukemia not having achiev ed remission Encounter Details Date Type Department Care Team ([facility] st Contact Info) Description 09/30/2024 9:30 AM EDT Office Visit [facility] Hematology/BMT and Cellular Therapy Program [address] [phone] Zonia Hoffman, KENNEL ATTENDANT 800 [facility] [address] [place] [phone] Acute myeloid leukemia not having achieved remission [...] 73 y.o. female. Referring Physician: Zonia Hoffman, KENNEL ATTENDANT 800 [facility] [address] [address] Primary Care Provider: Jevon Vazquez MD Chief [...] k/??L. 12/2023- seen by Dr. Manzano in [facility] for evaluation of anemia and lymphocytosis. [...] interphase cells examined show a deletion of H6W247. Next generation sequencing: Abnormal: TP53 (c.814G>A; p.Yhb212Fqh) frequency 45%, DMNT3A (c.1522delC; p.[id number]) frequency 48%, RUNX1 (c.336_338delGCC; p.[id number]) frequency 35% Azacitidine + Venetoclax Cycle 1: [...] - Continue local lab checks MWF at [facility] Allogenic transplant planning. 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 However, given her older age > 70, she would benefit from a geriatric BMT program and will make referrals should she be interested. Expected pancytopenia related to chemotherapy/AML. Check CBC x 3 times/week at [facility] Labs reviewed today, Hgb 7.7 , [...] charts, reviewing results, and documenting. RODDY Cristina [facility] HEMATOLOGY/BMT AND CELLULAR THERAPY PROGRAM 800 [facility] [phone] 40 minutes was spent on this encounter; [...] ([facility] st Contact Info) Description 10/29/2024 1:00 PM EDT Clinical Support [facility] Hematology/BMT and Cellular Therapy Program 750 [facility], [address] [place] [address] [place] [address] 10/29/2024 1:30 PM EDT Office Visit [facility] Hematology/BMT and Cellular Therapy Program [address] [place] [address] Zonia Hoffman, KENNEL ATTENDANT 800 [facility] [address] [place] [phone] 10/29/2024 3:00 PM EDT Appointment [facility] 2 [address] [place] [address] 10/30/2024 3:00 PM EDT Appointment [facility] 2 [address] [place] [address] 10/31/2024 3:00 PM EDT Appointment [facility] 2 [address] [place] [address] 11/01/2024 3:00 PM EDT Appointment [facility] 2 [address] [place] [address] 11/02/2024 3:00 PM EDT Appointment [facility] 1 [address] [place] [address] 2024 3:00 PM EDT Appointment [facility] 2 [address] [place] [address] 11/04/2024 3:00 PM EDT Appointment [facility] 2 [address] [place] [address] 11/27/2024 12:30 PM EDT Clinical Support [facility] Hematology/BMT and Cellular Therapy Program [address] [place] [address] 11/27/2024 1:00 PM EDT Office Visit [facility] Hematology/BMT and Cellular Therapy Program [address] [place] [address] Zonia Hoffman, KENNEL ATTENDANT 800 [facility] [address] [place] [phone] documented as of this encounter Results * [...] ult [facility] [address] [place] [address] * (ABNORMAL) CBC and Differential (09/30/2024 9:11 [...] values, rather than percentages. us Zonia Hoffman KENNEL ATTENDANT LAB BLOOD ORDERABLES Final Res ult [facility] [address] [place] [address] documented in this encounter Visit Diagnoses Diagnosis [...] documented as of this encounter Care Teams Employment Instructional Associate Relationship Specialty Start Date End Date Jevon Vazquez MD [address] [place] [address] #1 #1 [place] [id number] PCP - General 03/23/22 documented as of this encounter
[2024-10-24] VITALS (10 sets, daily range): BP systolic 104–128; BP diastolic 42–62; PULSE 72–86; RESP 18; TEMP 36.6–36.8; O2SAT 97
--- OUTSIDE RECORDS SUMMARY | 2024-10-24 08:52 | XMS_ITS | Encounter Summary ---
Author Organization Healthcare Address [address] [place] [address] Care Team Providers Care Gelatin Plant Supervisor Name Role Phone Jevon Vazquez MD Primary Care Provider Encounter Details Date Type Department Care Team ([facility] Contact Info) Description 09/19/2024 Orders Only [facility] Hematology/BMT and Cellular Therapy Program [address] [phone] 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, RN [facility] CLINIC Social History Tobacco Use [...] Care Team ([facility] Contact Info) Description 10/29/2024 1:00 PM EDT Clinical Support [facility] Hematology/BMT and Cellular Therapy Program [address] [phone] 10/29/2024 1:30 PM EDT Office Visit [facility] Hematology/BMT and Cellular Therapy Program [address] [phone] Zonia Hoffman, BOMB TECHNICIAN 800 [facility] [address] [place] [address] 10/29/2024 3:00 PM EDT Appointment [facility] 2 [address] [place] [address] 10/30/2024 3:00 PM EDT Appointment [facility] 2 [address] [place] [address] 10/31/2024 3:00 PM EDT Appointment [facility] 2 [address] [place] [address] 11/01/2024 3:00 PM EDT Appointment [facility] 2 [address] [place] [address] 11/02/2024 3:00 PM EDT Appointment [facility] 1 [address] [place] [address] 2024 3:00 PM EDT Appointment [facility] 2 [address] [place] [address] 11/04/2024 3:00 PM EDT Appointment [facility] 2 [address] [place] [address] 11/27/2024 12:30 PM EDT Clinical Support [facility] Hematology/BMT and Cellular Therapy Program [address] [address] 11/27/2024 1:00 PM EDT Office Visit [facility] Hematology/BMT and Cellular Therapy Program [address] [address] Zonia Hoffman, BOMB TECHNICIAN 800 [facility] [address] [place] [address] documented as of this encounter Visit Diagnoses Not on filedocumented in this encounter Additional Health Concerns Assessment Noted Time A fall risk assessment has been complete d for the patient 09/19/2024 8:38 AM EDT A Body Mass Index follow-up plan has been documented for the patient 05/28/2024 1:52 PM EST documented as of this encounter Care Teams Gelatin Plant Supervisor Relationship Specialty Start Date End Date Jevon Vazquez MD [address] [place] [address] #1 #1 [place] [address] PCP - General 03/23/22 documented as of this encounter
--- OUTSIDE RECORDS SUMMARY | 2024-10-24 08:52 | XMS_ITS | Encounter Summary ---
Author Organization [facility] Address [address] [place] [address] Care Team Providers Care Retail Brand Ambassador Name Role Phone Jevon Vazquez MD Primary Care Provider [phone] Encounter Details Date Type Department Care Team ([facility] Contact Info) Description 09/15/2024 Telephone [facility] Hematology/BMT and Cellular Therapy Program [address] [phone] Zonia Hoffman, PARTS COUNTERMAN 800 [facility] [address] [place] [phone] Social History Tobacco Use Types Packs/Day Years [...] Upcoming Encounters Date Type Department Care Team ([facility] Contact Info) Description 10/29/2024 1:00 PM EDT Clinical Support [facility] Hematology/BMT and Cellular Therapy Program [address] [phone] 10/29/2024 1:30 PM EDT Office Visit [facility] Hematology/BMT and Cellular Therapy Program [address] [phone] Zonia Hoffman, PARTS COUNTERMAN 800 [facility] [address] [place] [phone] 10/29/2024 3:00 PM EDT Appointment [facility] 2 [address] [place] [address] 10/30/2024 3:00 PM EDT Appointment [facility] 2 [address] [place] [address] 10/31/2024 3:00 PM EDT Appointment [facility] 2 [address] [place] [address] 11/01/2024 3:00 PM EDT Appointment [facility] 2 [address] [place] [address] 11/02/2024 3:00 PM EDT Appointment [facility] 1 [address] [place] [address] 2024 3:00 PM EDT Appointment [facility] 2 [address] [place] [address] 11/04/2024 3:00 PM EDT Appointment [facility] Infusion Clinic 2 [address] [place] [address] 11/27/2024 12:30 PM EDT Clinical Support [facility] Hematology/BMT and Cellular Therapy Program [address] [place] [address] 11/27/2024 1:00 PM EDT Office Visit [facility] Hematology/BMT and Cellular Therapy Program [address] [place] [address] Zonia Hoffman, PARTS COUNTERMAN 800 [facility] [address] [place] [phone] documented as of this encounter Visit Diagnoses Not on filedocumented in this encounter Additional Health Concerns Assessment Noted Time A fall risk assessment has been complete d for the patient 07/30/2024 8:29 AM EDT A Body Mass Index follow-up plan has been documented for the patient 05/28/2024 1:52 PM EST documented as of this encounter Care Teams Retail Brand Ambassador Relationship Specialty Start Date End Date Jevon Vazquez MD [address] [place] [address] #1 #1 [place] [address] PCP - General 03/23/22 documented as of this encounter
--- OUTSIDE RECORDS SUMMARY | 2024-10-24 08:52 | XMS_ITS | Encounter Summary ---
Author Organization Healthcare Address [address] [place] [address] Care Team Providers Care Cottage Supervisor Name Role Phone Jevon Vazquez MD [...] Hematology/BMT and Cellular Therapy Program [address] [address] 10/29/2024 1:30 PM EDT Office Visit [facility] Hematology/BMT and Cellular Therapy Program [address] [address] Zonia Hoffman, TELEGRAPHIC TYPEWRITER OPERATOR CHIEF 800 [facility] [address] [place] [address] 10/29/2024 3:00 PM EDT Appointment [facility] 2 [address] [place] [address] 10/30/2024 3:00 PM EDT Appointment [facility] 2 [address] [place] [address] 10/31/2024 3:00 PM EDT Appointment [facility] 2 [address] [place] [address] 11/01/2024 3:00 PM EDT Appointment [facility] 2 [address] [place] [address] 11/02/2024 3:00 PM EDT Appointment [facility] 1 [address] [place] [address] 2024 3:00 PM EDT Appointment [facility] 2 [address] [place] [address] 11/04/2024 3:00 PM EDT Appointment [facility] 2 [address] [place] [address] 11/27/2024 12:30 PM EDT Clinical Support [facility] Hematology/BMT and Cellular Therapy Program [address] [address] 11/27/2024 1:00 PM EDT Office Visit [facility] Hematology/BMT and Cellular Therapy Program [address] [address] Zonia Hoffman, TELEGRAPHIC TYPEWRITER OPERATOR CHIEF 800 [facility] [address] [place] [address] documented as of this encounter Visit Diagnoses Not on filedocumented in this encounter Additional Health Concerns Assessment Noted Time A fall risk assessment has been complete d for the patient 07/30/2024 8:29 AM EDT A Body Mass Index follow-up plan has been documented for the patient 05/28/2024 1:52 PM EST documented as of this encounter Care Teams Cottage Supervisor Relationship Specialty Start Date End Date Jevon Vazquez MD [address] [place] [address] #1 #1 [place] [address] PCP - General 03/23/22 documented as of this encounter
--- OUTSIDE RECORDS SUMMARY | 2024-10-24 08:52 | XMS_ITS | Encounter Summary ---
Author Organization Healthcare Address [address] [place] [address] Care Team Providers Care Prepress Stripper Name Role Phone Jevon Vazquez MD Primary Care Provider [phone] Encounter Details Date Type Department Care Team [...] Hematology/BMT and Cellular Therapy Program [address] [address] 10/29/2024 1:30 PM EDT Office Visit [facility] Hematology/BMT and Cellular Therapy Program [address] [address] Zonia Hoffman, RN ACCESS 800 [facility] [address] [place] [address] 10/29/2024 3:00 PM EDT Appointment [facility] 2 [address] [place] [address] 10/30/2024 3:00 PM EDT Appointment [facility] 2 [address] [place] [address] 10/31/2024 3:00 PM EDT Appointment [facility] 2 [address] [place] [address] 11/01/2024 3:00 PM EDT Appointment [facility] 2 [address] [place] [address] 11/02/2024 3:00 PM EDT Appointment [facility] 1 [address] [place] [address] 2024 3:00 PM EDT Appointment [facility] 2 [address] [place] [address] 11/04/2024 3:00 PM EDT Appointment [facility] 2 [address] [place] [address] 11/27/2024 12:30 PM EDT Clinical Support [facility] Hematology/BMT and Cellular Therapy Program [address] [address] 11/27/2024 1:00 PM EDT Office Visit [facility]AV Hematology/BMT and Cellular Therapy Program [address] [address] Zonia Hoffman, RN ACCESS 800 [facility] [address] [place] [phone] documented as of this encounter Visit Diagnoses Not on filedocumented in this encounter Additional Health Concerns Assessment Noted Time A fall risk assessment has been complete d for the patient 09/30/2024 9:33 AM EDT A Body Mass Index follow-up plan has been documented for the patient 05/28/2024 1:52 PM EST documented as of this encounter Care Teams Prepress Stripper Relationship Specialty Start Date End Date Jevon Vazquez MD [address] [place] [address] #1 #1 [place] [address] PCP - General 03/23/22 documented as of this encounter
--- OUTSIDE RECORDS SUMMARY | 2024-10-24 08:52 | XMS_ITS | Encounter Summary ---
Author Organization Healthcare Address [address] [place] [address] Care Team Providers Care Community Development Aide Name Role Phone Jevon Vazquez MD Primary Care Provider [phone] Encounter Details Date Type Department Care Team [...] Hematology/BMT and Cellular Therapy Program [address] [address] 10/29/2024 1:30 PM EDT Office Visit [facility] Hematology/BMT and Cellular Therapy Program [address] [address] Zonia Hoffman, LARD REFINER 800 [facility] [address] [place] [address] 10/29/2024 3:00 PM EDT Appointment [facility] 2 [address] [place] [address] 10/30/2024 3:00 PM EDT Appointment [facility] 2 [address] [place] [address] 10/31/2024 3:00 PM EDT Appointment [facility] 2 [address] [place] [address] 11/01/2024 3:00 PM EDT Appointment [facility] 2 [address] [place] [address] 11/02/2024 3:00 PM EDT Appointment [facility] 1 [address] [place] [address] 2024 3:00 PM EDT Appointment [facility] 2 [address] [place] [address] 11/04/2024 3:00 PM EDT Appointment [facility] 2 [address] [place] [address] 11/27/2024 12:30 PM EDT Clinical Support [facility] Hematology/BMT and Cellular Therapy Program [address] [address] 11/27/2024 1:00 PM EDT Office Visit [facility] Hematology/BMT and Cellular Therapy Program [address] [address] Zonia Hoffman, LARD REFINER 800 [facility] [address] [place] [address] documented as of this encounter Visit Diagnoses Not on filedocumented in this encounter Additional Health Concerns Assessment Noted Time A fall risk assessment has been complete d for the patient 09/30/2024 9:33 AM EDT A Body Mass Index follow-up plan has been documented for the patient 05/28/2024 1:52 PM EST documented as of this encounter Care Teams Community Development Aide Relationship Specialty Start Date End Date Jevon Vazquez MD [address] [place] [address] #1 #1 [place] [address] PCP - General 03/23/22 documented as of this encounter
--- OUTSIDE RECORDS SUMMARY | 2024-10-24 08:52 | XMS_ITS | Encounter Summary ---
Author Organization Healthcare Address [address] [place] [address] Care Team Providers Care Canoe Inspector Final Name Role Phone Jevon Vazquez MD Primary Care Provider [phone] Encounter Details Date Type Department Care Team [...] Hematology/BMT and Cellular Therapy Program [address] [address] 10/29/2024 1:30 PM EDT Office Visit [facility] Hematology/BMT and Cellular Therapy Program [address] [address] Zonia Hoffman, MOLECULAR GENETIC PATHOLOGIST 800 [facility] [address] [place] [phone] 10/29/2024 3:00 PM EDT Appointment [facility] 2 [address] [place] [address] 10/30/2024 3:00 PM EDT Appointment [facility] 2 [address] [place] [address] 10/31/2024 3:00 PM EDT Appointment [facility] 2 [address] [place] [address] 11/01/2024 3:00 PM EDT Appointment [facility] 2 [address] [place] [address] 11/02/2024 3:00 PM EDT Appointment [facility] 1 [address] [place] [address] 2024 3:00 PM EDT Appointment [facility] 2 [address] [place] [address] 11/04/2024 3:00 PM EDT Appointment [facility] 2 [address] [place] [address] 11/27/2024 12:30 PM EDT Clinical Support [facility] Hematology/BMT and Cellular Therapy Program [address] [address] 11/27/2024 1:00 PM EDT Office Visit [facility] Hematology/BMT and Cellular Therapy Program [address] [address] Zonia Hoffman, MOLECULAR GENETIC PATHOLOGIST 800 [facility] [address] [place] [phone] documented as of this encounter Visit Diagnoses Not on filedocumented in this encounter Additional Health Concerns Assessment Noted Time A fall risk assessment has been complete d for the patient 09/19/2024 8:38 AM EDT A Body Mass Index follow-up plan has been documented for the patient 05/28/2024 1:52 PM EST documented as of this encounter Care Teams Canoe Inspector Final Relationship Specialty Start Date End Date Jevon Vazquez MD [address] [place] [address] #1 #1 [place] [address] PCP - General 03/23/22 documented as of this encounter
--- OUTSIDE RECORDS SUMMARY | 2024-10-24 08:52 | XMS_ITS | Encounter Summary ---
Author Organization [facility] Address [address] [place] [address] Care Team Providers Care Bracelet Former Name Role Phone Jevon Vazquez MD Primary Care Provider [phone] Reason for Visit * Reason Comments Med Refill Encounter Details Date Type Department Care Team ([facility] Contact Info) Description 01/30/2024 Refill [facility] Hematology/BMT and Cellular Therapy Program [address] [phone] Nwe Mckinney MD 800 [facility] [address] [place] [phone] Social History Tobacco Use Types Packs/Day Years [...] Upcoming Encounters Date Type Department Care Team ([facility] Contact Info) Description 10/29/2024 1:00 PM EDT Clinical Support [facility] Hematology/BMT and Cellular Therapy Program [address] [place] [address] 10/29/2024 1:30 PM EDT Office Visit [facility] Hematology/BMT and Cellular Therapy Program [address] [phone] Zonia Hoffman, SENIOR IOS DEVELOPER 800 [facility] [address] [place] [phone] 10/29/2024 3:00 PM EDT Appointment [facility] 2 [address] [place] [address] 10/30/2024 3:00 PM EDT Appointment [facility] 2 [address] [place] [address] 10/31/2024 3:00 PM EDT Appointment [facility] 2 [address] [place] [address] 11/01/2024 3:00 PM EDT Appointment [facility] 2 [address] [place] [address] 11/02/2024 3:00 PM EDT Appointment [facility] 1 [address] [place] [address] 2024 3:00 PM EDT Appointment [facility] 2 [address] [place] [address] 11/04/2024 3:00 PM EDT Appointment [facility] Infusion Clinic 2 [address] [place] [address] 11/27/2024 12:30 PM EDT Clinical Support [facility] Hematology/BMT and Cellular Therapy Program [address] [place] [address] 11/27/2024 1:00 PM EDT Office Visit [facility] Hematology/BMT and Cellular Therapy Program [address] [place] [address] Zonia Hoffman, SENIOR IOS DEVELOPER 800 [facility] [address] [place] [phone] documented as of this encounter Visit Diagnoses Not on filedocumented in this encounter Additional Health Concerns Assessment Noted Time A fall risk assessment has been complete d for the patient 01/11/2024 9:16 AM EDT A Body Mass Index follow-up plan has been documented for the patient 01/21/2024 6:16 AM EDT documented as of this encounter Care Teams Bracelet Former Relationship Specialty Start Date End Date Jevon Vazquez MD [address] [place] [address] #1 #1 JOSEP [place] [id number] PCP - General 03/23/22 documented as of this encounter
--- OUTSIDE RECORDS SUMMARY | 2024-10-24 08:52 | XMS_ITS ---
Author Organization Unknown Problems Date Problem Result OnSetDate [id number] SnomedCode Severity Cu stom 12/20/2023 00:00:00 Abnormal platelets D69.1 12/26/2023 00:00:00 Abnormal WBC count D72.9
--- OUTSIDE RECORDS SUMMARY | 2024-10-24 08:52 | XMS_ITS | Encounter Summary ---
Author Organization Healthcare Address [address] [place] [address] Care Team Providers Care Handle Lathe Operator Name Role Phone Jevon Vazquez MD [...] Hematology/BMT and Cellular Therapy Program [address] [address] 10/29/2024 1:30 PM EDT Office Visit [facility] Hematology/BMT and Cellular Therapy Program [address] [address] Zonia Hoffman, CIVIL DRAFTING TECHNICIAN 800 [facility] [address] [place] [phone] 10/29/2024 3:00 PM EDT Appointment [facility] 2 [address] [place] [address] 10/30/2024 3:00 PM EDT Appointment [facility] 2 [address] [place] [address] 10/31/2024 3:00 PM EDT Appointment [facility] 2 [address] [place] [address] 11/01/2024 3:00 PM EDT Appointment [facility] 2 [address] [place] [address] 11/02/2024 3:00 PM EDT Appointment [facility] 1 [address] [place] [address] 2024 3:00 PM EDT Appointment [facility] 2 [address] [place] [address] 11/04/2024 3:00 PM EDT Appointment [facility] 2 [address] [place] [address] 11/27/2024 12:30 PM EDT Clinical Support [facility] Hematology/BMT and Cellular Therapy Program [address] [address] 11/27/2024 1:00 PM EDT Office Visit [facility] Hematology/BMT and Cellular Therapy Program [address] [address] Zonia Hoffman, CIVIL DRAFTING TECHNICIAN 800 [facility] [address] [place] [phone] documented as of this encounter Visit Diagnoses Not on filedocumented in this encounter Additional Health Concerns Assessment Noted Time A fall risk assessment has been complete d for the patient 07/30/2024 8:29 AM EDT A Body Mass Index follow-up plan has been documented for the patient 05/28/2024 1:52 PM EST documented as of this encounter Care Teams Handle Lathe Operator Relationship Specialty Start Date End Date Jevon Vazquez MD [address] [place] [address] #1 #1 Julien JOSEP [id number] PCP - General 03/23/22 documented as of this encounter
--- OUTSIDE RECORDS SUMMARY | 2024-10-24 08:52 | XMS_ITS | Encounter Summary ---
Author Organization [facility] Address [address] [place] [address] Care Team Providers Care Care Taker Name Role Phone Jevon Vazquez MD Primary Care Provider [phone] Encounter Details Date Type Department Care Team ([facility] Contact Info) Description 09/19/2024 Telephone [facility] Hematology/BMT and Cellular Therapy Program [address] [place] [address] Romana Richmond RN [facility] Social History Tobacco [...] Upcoming Encounters Date Type Department Care Team ([facility] Contact Info) Description 10/29/2024 1:00 PM EDT Clinical Support [facility] Hematology/BMT and Cellular Therapy Program [address] [place] [address] 10/29/2024 1:30 PM EDT Office Visit [facility] Hematology/BMT and Cellular Therapy Program [address] [place] [address] Zonia Hoffman, CHEMICAL PACKAGER 800 [facility] [address] [place] [phone] 10/29/2024 3:00 PM EDT Appointment [facility] 2 [address] [place] [address] 10/30/2024 3:00 PM EDT Appointment [facility] 2 [address] [place] [address] 10/31/2024 3:00 PM EDT Appointment [facility] 2 [address] [place] [address] 11/01/2024 3:00 PM EDT Appointment [facility] 2 [address] [place] [address] 11/02/2024 3:00 PM EDT Appointment [facility] 1 [address] [place] [address] 2024 3:00 PM EDT Appointment [facility] 2 [address] [place] [address] 11/04/2024 3:00 PM EDT Appointment [facility] 2 [address] [place] [address] 11/27/2024 12:30 PM EDT Clinical Support [facility] Hematology/BMT and Cellular Therapy Program [address] [place] [address] 11/27/2024 1:00 PM EDT Office Visit [facility] Hematology/BMT and Cellular Therapy Program [address] , [facility] [place] [address] Zonia Hoffman, CHEMICAL PACKAGER 800 [facility] [address] [place] [phone] documented as of this encounter Visit Diagnoses Not on filedocumented in this encounter Additional Health Concerns Assessment Noted Time A fall risk assessment has been complete d for the patient 09/19/2024 8:38 AM EDT A Body Mass Index follow-up plan has been documented for the patient 05/28/2024 1:52 PM EST documented as of this encounter Care Teams Care Taker Relationship Specialty Start Date End Date Jevon Vazquez MD [address] [place] [address] #1 #1 JOSEP [place] [id number] PCP - General 03/23/22 documented as of this encounter
--- OUTSIDE RECORDS SUMMARY | 2024-10-24 08:52 | XMS_ITS | Encounter Summary ---
Author Organization Healthcare Address [address] [place] [address] Care Team Providers Care Brineyard Supervisor Name Role Phone Jevon Vazquez MD Primary Care Provider [phone] Encounter Details Date Type Department Care Team [...] Hematology/BMT and Cellular Therapy Program [address] [address] 10/29/2024 1:30 PM EDT Office Visit [facility] Hematology/BMT and Cellular Therapy Program [address] [phone] Zonia Hoffman, ETHYL BLENDER 800 [facility] [address] [place] [phone] 10/29/2024 3:00 PM EDT Appointment [facility] 2 [address] [place] [address] 10/30/2024 3:00 PM EDT Appointment [facility] 2 [address] [place] [address] 10/31/2024 3:00 PM EDT Appointment [facility] 2 [address] [place] [address] 11/01/2024 3:00 PM EDT Appointment [facility] 2 [address] [place] [address] 11/02/2024 3:00 PM EDT Appointment [facility] 1 [address] [place] [address] 2024 3:00 PM EDT Appointment [facility] 2 [address] [place] [address] 11/04/2024 3:00 PM EDT Appointment [facility] 2 [address] [place] [address] 11/27/2024 12:30 PM EDT Clinical Support [facility] Hematology/BMT and Cellular Therapy Program [address] [address] 11/27/2024 1:00 PM EDT Office Visit [facility] Hematology/BMT and Cellular Therapy Program [address] [address] Zonia Hoffman, ETHYL BLENDER 800 [facility] [address] [place] [phone] documented as of this encounter Visit Diagnoses Not on filedocumented in this encounter Additional Health Concerns Assessment Noted Time A fall risk assessment has been complete d for the patient 07/30/2024 8:29 AM EDT A Body Mass Index follow-up plan has been documented for the patient 05/28/2024 1:52 PM EST documented as of this encounter Care Teams Brineyard Supervisor Relationship Specialty Start Date End Date Jevon Vazquez MD [address] [place] [address] #1 #1 Julien JOSEP [id number] PCP - General 03/23/22 documented as of this encounter
--- OUTSIDE RECORDS SUMMARY | 2024-10-24 08:52 | XMS_ITS | Encounter Summary ---
Author Organization Healthcare Address [address] [place] [address] Care Team Providers Care Bilingual [employer] Teacher Name Role Phone Jevon Vazquez MD [...] Hematology/BMT and Cellular Therapy Program [address] [address] 10/29/2024 1:30 PM EDT Office Visit [facility] Hematology/BMT and Cellular Therapy Program [address] [address] Zonia Hoffman, CLIENT TECHNICAL SPECIALIST 800 [facility] [address] [place] [phone] 10/29/2024 3:00 PM EDT Appointment [facility] 2 [address] [place] [address] 10/30/2024 3:00 PM EDT Appointment [facility] 2 [address] [place] [address] 10/31/2024 3:00 PM EDT Appointment [facility] 2 [address] [place] [address] 11/01/2024 3:00 PM EDT Appointment [facility] 2 [address] [place] [address] 11/02/2024 3:00 PM EDT Appointment [facility] 1 [address] [place] [address] 2024 3:00 PM EDT Appointment [facility] 2 [address] [place] [address] 11/04/2024 3:00 PM EDT Appointment [facility] 2 [address] [place] [address] 11/27/2024 12:30 PM EDT Clinical Support [facility] Hematology/BMT and Cellular Therapy Program [address] [address] 11/27/2024 1:00 PM EDT Office Visit [facility] Hematology/BMT and Cellular Therapy Program [address] [address] Zonia Hoffman, CLIENT TECHNICAL SPECIALIST 800 [facility] [address] [place] [phone] documented as of this encounter Visit Diagnoses Not on filedocumented in this encounter Additional Health Concerns Assessment Noted Time A fall risk assessment has been complete d for the patient 07/30/2024 8:29 AM EDT A Body Mass Index follow-up plan has been documented for the patient 05/28/2024 1:52 PM EST documented as of this encounter Care Teams [employer] Teacher Relationship Specialty Start Date End Date Jevon Vazquez MD [address] [place] [address] #1 #1 Julien JOSEP [id number] PCP - General 03/23/22 documented as of this encounter
--- OUTSIDE RECORDS SUMMARY | 2024-10-24 08:52 | XMS_ITS ---
Author Organization [facility] Address [address] [place] [address] Care Team Providers Care Manager Leadership Development Name Role Phone Jevon Vazquez MD Primary Care Provider [phone] Active Problems Problem Noted Date Diagnosed Date [...]
--- OUTSIDE RECORDS SUMMARY | 2024-10-24 08:52 | XMS_ITS | Encounter Summary ---
Author Organization Healthcare Address [address] [place] [address] Care Team Providers Care Nanotechnology Engineering Technician Name Role Phone Jevon Vazquez MD Primary Care Provider [phone] Encounter Details Date Type Department Care Team [...] Hematology/BMT and Cellular Therapy Program [address] [address] 10/29/2024 1:30 PM EDT Office Visit [facility] Hematology/BMT and Cellular Therapy Program [address] [address] Zonia Hoffman, MOSQUITO SPRAYER 800 [facility] [address] [place] [phone] 10/29/2024 3:00 PM EDT Appointment [facility] 2 [address] [place] [address] 10/30/2024 3:00 PM EDT Appointment [facility] 2 [address] [place] [address] 10/31/2024 3:00 PM EDT Appointment [facility] 2 [address] [place] [address] 11/01/2024 3:00 PM EDT Appointment [facility] 2 [address] [place] [address] 11/02/2024 3:00 PM EDT Appointment [facility] 1 [address] [place] [address] 2024 3:00 PM EDT Appointment [facility] 2 [address] [place] [address] 11/04/2024 3:00 PM EDT Appointment [facility] 2 [address] [place] [address] 11/27/2024 12:30 PM EDT Clinical Support [facility] Hematology/BMT and Cellular Therapy Program [address] [address] 11/27/2024 1:00 PM EDT Office Visit [facility] Hematology/BMT and Cellular Therapy Program [address] [address] Zonia Hoffman, MOSQUITO SPRAYER 800 [facility] [address] [place] [phone] documented as of this encounter Visit Diagnoses Not on filedocumented in this encounter Additional Health Concerns Assessment Noted Time A fall risk assessment has been complete d for the patient 07/30/2024 8:29 AM EDT A Body Mass Index follow-up plan has been documented for the patient 05/28/2024 1:52 PM EST documented as of this encounter Care Teams Nanotechnology Engineering Technician Relationship Specialty Start Date End Date Jevon Vazquez MD [address] [place] [address] #1 #1 Julien JOSEP [id number] PCP - General 03/23/22 documented as of this encounter
--- OUTSIDE RECORDS SUMMARY | 2024-10-24 08:53 | XMS_ITS | Encounter Summary ---
Author Organization [facility] Address [address] [place] [address] Care Team Providers Care House Mover Helper Name Role Phone Jevon Vazquez MD Primary Care Provider [phone] Reason for Visit * Reason Comments Med Refill Encounter Details Date Type Department Care Team ([facility] Contact Info) Description 10/15/2024 Refill [facility] Hematology/BMT and Cellular Therapy Program [address] [phone] [place] Mckin[place] MD 800 [facility] [address] [place] [phone] Social History Tobacco Use Types Packs/Day Years [...] ([facility] Contact Info) Description 10/29/2024 1:00 PM EDT Clinical Support [facility] Hematology/BMT and Cellular Therapy Program [address] [phone] 10/29/2024 1:30 PM EDT Office Visit [facility] Hematology/BMT and Cellular Therapy Program [address] [address] Zonia Hoffman, SHINGLE TRIMMER 800 [facility] [address] [place] [phone] 10/29/2024 3:00 PM EDT Appointment [facility] 2 [address] [place] [address] 10/30/2024 3:00 PM EDT Appointment [facility] 2 [address] [place] [address] 10/31/2024 3:00 PM EDT Appointment [facility] 2 [address] [place] [address] 11/01/2024 3:00 PM EDT Appointment [facility] 2 [address] [place] [address] 11/02/2024 3:00 PM EDT Appointment [facility] 1 [address] [place] [address] 2024 3:00 PM EDT Appointment [facility] 2 [address] [place] [address] 11/04/2024 3:00 PM EDT Appointment [facility] 2 [address] [place] [address] 11/27/2024 12:30 PM EDT Clinical Support [facility] Hematology/BMT and Cellular Therapy Program [address] [place] [address] 11/27/2024 1:00 PM EDT Office Visit [facility] Hematology/BMT and Cellular Therapy Program [address] [place] [address] Zonia Hoffman, SHINGLE TRIMMER 800 [facility] [address] [place] [phone] documented as of this encounter Visit Diagnoses Not on filedocumented in this encounter Additional Health Concerns Assessment Noted Time A fall risk assessment has been complete d for the patient 09/30/2024 9:33 AM EDT A Body Mass Index follow-up plan has been documented for the patient 05/28/2024 1:52 PM EST documented as of this encounter Care Teams House Mover Helper Relationship Specialty Start Date End Date Jevon Vazquez MD [address] [place] [address] #1 #1 JOSEP [place] [phone] PCP - General 03/23/22 documented as of this encounter
--- OUTSIDE RECORDS SUMMARY | 2024-10-24 08:53 | XMS_ITS | Clinical Summary ---
Author Organization [facility] Address [address] [place] [address] Care Team Providers Care Visual Aid Expert Name Role Phone Jevon Vazquez MD [...] Encounters Date Type Department Care Team Description 10/23/2024 Travel 10/22/2024 Travel 10/15/2024 Refill [facility] Hematology/BMT and Cellular Therapy Program [address] [place] [phone] New Mckinney MD 10/14/2024 Refill [facility] H[facility]ology/BMT and Cellular Therapy Program [address] [place] [address] [phone] New Mckinney MD 10/13/2024 Telephone [facility]ology[facility]BMT and Cellular Therapy Program [address] [place] [address] [phone] Zonia Hoffman APRN 10/13/2024 Travel 10/12/2024 Travel 10/11/2024 Travel 10/09/2024 Travel 10/08/2024 Travel 10/08/2024 Orders Only [facility] Hematology/BMT and Cellular Therapy Program [address] [place] [address], [address] [place] [address] [phone] 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, 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) 10/07/2024 Travel 09/30/2024 9:30 AM EDT Office Visit [facility] Hematology[facility]BMT and Cellular Therapy Program [address] [phone] Zonia Hoffman APRN 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) 09/30/2024 9:00 AM EDT Clinical Support [facility] Hematology/BMT and Cellular Therapy Program 750 [facility], [address] [place] [phone] Jyoti Kemp 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) 09/30/2024 Telephone [facility] Hematology/BMT and Cellular Therapy Program 750 [facility], [address] [place] [address] [phone] Zoraida Good RN 09/30/2024 Travel 09/29/2024 Travel 09/28/2024 Travel 09/27/2024 Travel 09/26/2024 Travel 09/25/2024 Travel 09/24/2024 Travel 09/23/2024 Travel 09/19/2024 12:00 PM EDT Procedure Visit [facility] Hematology/BMT and Cellular Therapy Program 750 [facility], [address] [place] [phone] Lexi Ferraro APRN 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) 09/19/2024 9:30 AM EDT Clinical Support [facility] 800 [facility], 2nd [place] [phone] 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) 09/19/2024 7:30 AM EDT Clinical Support [facility] Hematology/BMT and Cellular Therapy Program [address] [phone] 09/19/2024 Telephone [facility] Hematology/BMT and Cellular Therapy Program 750 [facility], [address] [place] [phone] Romana Richmond RN 09/19/2024 Orders Only [facility] Hematology/BMT and Cellular Therapy Program 750 [facility], [address] [place] [address] [place] [phone] 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 RN 09/19/2024 Travel 09/15/2024 Telephone [facility]ology[facility]BMT [facility] Cellular Therapy Program [address] [place] [phone] Zonia Hoffman, SEE SUPERVISOR 09/15/2024 Travel 09/14/2024 Travel 09/13/2024 Travel 09/12/2024 Travel 09/12/2024 Refill [facility] Hematology/BMT and Cellular Therapy Program 750 [facility], [address] [place] [address] [place] [phone] New Mckinney MD 09/11/2024 Travel 09/10/2024 Travel 09/01/2024 Telephone [facility]ology[facility]BMT [facility] Cellular Therapy Program [address] [phone] Zonia Hoffman, SEE SUPERVISOR 08/31/2024 Travel 08/30/2024 Travel 08/18/2024 Telephone [facility]ology[facility]BMT [facility] Cellular Therapy Program [address] [phone] Romana Gorman, SEE SUPERVISOR 08/17/2024 Travel 08/16/2024 Travel 08/15/2024 Travel 08/13/2024 Travel 07/30/2024 8:30 AM EDT Office Visit [facility]ology/BMT and Cellular Therapy Program [address] [place] [phone] Zonia Hoffman, SEE SUPERVISOR Pancytopenia (Primary Dx) 07/30/2024 8:00 AM EDT Clinical Support [facility]ology/BMT and Cellular Therapy Program [address] [place] [phone] Pancytopenia 07/30/2024 Telephone [facility] H[facility]ology/BMT and Cellular Therapy Program [address] [phone] Romana Richmond RN 07/30/2024 Refill [facility]ology[facility]BMT [facility] Cellular Therapy Program [address] [place] [address] Daxa Elliott RN 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); Immunosuppressed status (CMS/HCC) 07/30/2024 Travel 07/29/2024 Travel 07/28/2024 Travel 07/27/2024 Travel 07/26/2024 Travel from Last 3 Months Immunizations Immunization [...] ([facility] Contact Info) Description 10/29/2024 1:00 PM EDT Clinical Support [facility]ematology/BMT and Cellular Therapy Program [address] [place] [address] 10/29/2024 1:30 PM EDT Office Visit [facility] Hematology/BMT and Cellular Therapy Program [address] [place] [address] Zonia Hoffman, SEE SUPERVISOR [address] [facility] [address] [phone] 10/29/2024 3:00 PM EDT Appointment [facility] [address] [place] [address] 10/30/2024 3:00 PM EDT Appointment [facility] [address] [place] [address] 10/31/2024 3:00 PM EDT Appointment [facility] [address] [place] [address] 11/01/2024 3:00 PM EDT Appointment [facility] [address] [place] [address] 11/02/2024 3:00 PM EDT Appointment [facility] 1 [address] [place] [address] 2024 3:00 PM EDT Appointment [facility] [address] [place] [address] 11/04/2024 3:00 PM EDT Appointment [facility] [address] [place] [address] 11/27/2024 12:30 PM EDT Clinical Support [facility]ology/BMT and Cellular Therapy Program [address] [place] [address] 11/27/2024 1:00 PM EDT Office Visit [facility] Hematology/BMT and Cellular Therapy Program [address] [place] [address] Zonia Hoffman, SEE SUPERVISOR [address] [facility] [address] [phone] Health Maintenance Due Date Last Done Comments [...] UKY-Zoster Vaccines (1 of 2) 05/16/2023 03/21/2023 [id number] Vaccine ( season) 2023 02/18/2021, 07/10/2020, 06/12/2020 [...] this topic Medical Devices Implanted Type Area Audit Officer Device Identifier Shelf Expiration Date Model / Serial / Lot Port Clearvue Power 8fr - [id number] Implanted:Qty: 1 on 01/21/2024 by Ness Sargent MD at [facility] Peripherial Vascular-[id number] / / Procedures Procedure Name Priority Date/Time [...] absolute values, rather than percentages. us Zonia Hayley Rojassky SEE SUPERVISOR LAB BLOOD ORDERABLES Final Res ult [facility] [address] [place] [address] * (ABNORMAL) Comprehensive Metabolic Panel, Plasma (09/30/2024 [...] Res ult [facility] [address] [place] [address] * BIOPSY BONE MARROW (09/19/2024 12:00 PM [...] to surronding structures. Alternatives discussed: Delayed treatment [place] protocol: Procedure explained and questions answered to [...] METHOD 09/19/2024 10:19 AM EDT [facility] Blood Blood sample taken from central line / Unknown (Port) Long-term Catheter / Unknown 09/19/2024 10:04 AM EDT 09/19/2024 10:18 AM EDT New Mckinney MD LAB BLOOD ORDERABLES Final Re sult [facility] [address] [place] [address] * Transfuse platelets, Irradiated (09/19/2024 10:02 AM EDT) us Lexi Ferraro APRN BLOOD TRANSFUSION ORDERABL ES Final Result * Prepare Leukocyte Reduced Platelets (09/19/2024 9:08 AM EDT) Pathologist [facility] Product Code N4316P60 BLOO D BANK Dispense Status Transfused BLOOD BANK Blood Expiration Date [id number] BLOOD BANK Unit Number [id number] B LOOD BANK Product Blood Type 6200 BLOOD BANK Blood Type A+ BLOOD BANK us Provider Not In System BLOOD BANK PRODUCT ORD ERABLES Final Result BLOOD BANK [address] [place] [address], * Myeloid Focused Panel, 50 gene (09/19/2024 7:29 AM EDT) Interpretation The following two (2) genes, TP53 and DNMT3A, with persistent variants have been detected in this bone marrow specimen. The variant, p.[id number], in TP53 gene and the variant, p.Zab591ixx, in the RUNX 1 gene are not detectable at current cutoff and coverage established in this lab. Gene: TP53 Mutation: c.814G>A; p.Fxf498Rwk Allele Frequency (%): 37% (45% Dec 2023) ID: [id number] Gene: DNMT3A Mutation: c.1522delC; p.Hra521LrfygOjv53 3 Allele Frequency (%): 36% (48% Dec 2023) Additional Details on Mutation Identified: Gene Transcript Genome Chrom Coordinate RefVar DNMT3A [id number] Hg19 2 [id number] delC TP53 NM_000546.5 Hg19 17 [id number] G>A 09/29/2024 4:05 PM EDT [facility] Methodology The following 50 genes were [...] then sequenced on the Illumina NextSeq 2000 ([employer], [place]). A custom bioinformatics pipeline aligns [...] of hematologic malignancies. 09/29/2024 4:05 PM EDT [facility] Disclaimer This test was developed and its performance characteristics determined by the Clinical Molecular and Genomic Pathology Laboratory at the [facility]. It has not been cleared or approved [...] clinical laboratory testing. 09/29/2024 4:05 PM EDT [facility] Pathologist Signature Reviewed by: Corey Tejada 09/29/2024 4:05 PM EDT [facility] Bone Marrow Specimen from bone marrow obtained by aspiration / Unknown Non-blood Collection / Unknown 09/19/2024 7:29 AM EDT 09/19/2024 12:03 PM EDT us New Mckinney MD LAB MOLECULAR DIAGNOSTICS ORD ERABLES Final Result [facility] [address] [place] [address], * Chromosome Karyotype, Oncology (09/19/2024 7:29 AM [...] inal Result [facility] [address] [place] [address] * Leukemia/Lymphoma - Immunophenotyping by Flow Cytometry (09/19/2024 7:29 AM EDT) Clinical Indication AML 09/22/2024 10:29 AM EDT [facility] Flow Cytometry Interpretation A. BONE MARROW FOR FLOW CYTOMETRY: - MIXED MARROW ELEMENTS WITH NO EVIDENCE OF INCREASED BLASTS OR ABNORMAL LYMPHOID POPULATIONS, SEE COMMENT. 09/22/2024 10:29 AM EDT [facility] Comments CD45/side scatter analysis shows [...] surface light chains 09/22/2024 10:29 AM EDT [facility] Disclaimer This test was developed and its performance characteristics determined by the Immuno-Molecular Pathology Laboratory at the [facility]. It has not been cleared or approved [...] Final Result [facility] [address] [place] [address] * Bone marrow exam (09/19/2024 7:29 AM EDT) Case Report Bone Marrow Case: [id number] Authorizing Provider: New Mckinney MD Collected: 09/19/2024 0729 Ordering Location: [facility] Hematology/BMT and Received: 09/19/2024 1216 Cellular [...] in this bone marrow specimen. The variant, p.Hrz226Lhr, in TP53 gene and the variant, p.Rox093qly, in the RUNX 1 gene are not detectable at current cutoff and coverage established in this lab. Gene: TP53 Mutation: c.814G>A; p.Oqi055Clc Allele Frequency (%): 37% (45% Dec 2023) ID: [id number] Gene: DNMT3A Mutation: c.1522delC; p.Erg330LeqciXte1 43 Allele Frequency (%): 36% (48% Dec [...] blasts are not seen. 3:15 PM EDT [facility] Bone Marrow Differential BONE MARROW DIFFERENTIAL: 200 cells Normal Patient Neutrophils 15-50 34 Metamyelocytes 4-19 3 Myelocytes 1-18 10 Promyelocytes 1-8 1 Blasts 0-2 1 Monocytes 0-5 4 Erythroid 16-38 22 Lymphocytes 3-24 13 Eosinophils 0-6 8 Basophils 0-2 0 Plasma cells 0-4 4 Other 3:15 PM EDT [facility] Bone Marrow Aspirate and Biopsy The [...] Bone trabeculae are unremarkable. 3:15 PM EDT [facility] Special and Immunohistochemical Stains Special Stain: A1-1 Vazquez-Giemsa A1-2 Vazquez-Giemsa A1-3 Vazquez-Giemsa C1-1 Vazquez-Giemsa IHC: B1-2 CD34 All controls show appropriate reactivity. All immunohistochemis try, in situ hybridization, and histochemical tests were developed by and are performed at the [facility], [address] [place] [address]. All tests reported here, except those addressing [...] negativity on decalcified specimens. 3:15 PM EDT [facility] Flow Cytometry Interpretation MIXED MARROW ELEMENTS WITH NO EVIDENCE OF INCREASED BLASTS OR ABNORMAL LYMPHOID POPULATIONS ([id number]). 3:15 PM EDT [facility] CYTOGENETICS/MOLECULA R INTERPRETATION Correlation with cytogenetic/molec ular analysis is suggested. 3:15 PM EDT [facility] Gross Description B. RIGHT A single specimen is received in formalin labeled bone marrow biopsy right posterior iliac crest and consists of 2 piece(s) of red/white tissue measuring 2.1/0.3 cm in length 0.2 cm in diameter. The specimen is submitted in to Histology for decalcification and routine processing. Cold Time: <1m 3:15 PM EDT [facility] Note: A resident [...] PATHOLOGY ORDERABLES Edit ed Result - Final [facility] [address] [place] [address] * Hepatitis C Antibody w/Reflex to HCV Quant PCR (01/07/2024 8:42 AM EDT) Hepatitis C Antibody Negative Negative 01/07/2024 10:13 AM EDT [facility] Blood Venous blood specimen / Unknown Venipuncture / Unknown 01/07/2024 8:42 AM EDT 01/07/2024 9:25 AM EDT us New Mckinney MD LAB BLOOD ORDERABLES Final Re sult [facility] [address] [place] [address] from Last 3 Months or Most Recently Relevant to Health Maintenance Insurance MEDICARE ANTH Care Teams Visual Aid Expert Relationship Specialty Start Date End Date Jevon Vazquez MD [address] [place] [address] #1 #1 JOSEP [place] [phone] PCP - General 03/23/22
--- OUTSIDE RECORDS SUMMARY | 2024-10-24 08:53 | XMS_ITS | Encounter Summary ---
Author Organization Healthcare Address [address] [place] [address] Care Team Providers Care Attorney Lawyer Name Role Phone Jevon Vazquez MD Primary Care Provider [phone] Encounter Details Date Type Department Care Team [...] Hematology/BMT and Cellular Therapy Program [address] [phone] 10/29/2024 1:30 PM EDT Office Visit [facility] Hematology/BMT and Cellular Therapy Program [address] [phone] Zonia Hoffman, ADJUSTO WRITER OPERATOR 800 [facility] [address] [place] [phone] 10/29/2024 3:00 PM EDT Appointment [facility] 2 [address] [place] [address] 10/30/2024 3:00 PM EDT Appointment [facility] 2 [address] [place] [address] 10/31/2024 3:00 PM EDT Appointment [facility] 2 [address] [place] [address] 11/01/2024 3:00 PM EDT Appointment [facility] 2 [address] [place] [address] 11/02/2024 3:00 PM EDT Appointment [facility] 1 [address] [place] [address] 2024 3:00 PM EDT Appointment [facility] 2 [address] [place] [address] 11/04/2024 3:00 PM EDT Appointment [facility] 2 [address] [place] [address] 11/27/2024 12:30 PM EDT Clinical Support [facility] Hematology/BMT and Cellular Therapy Program [address] [address] 11/27/2024 1:00 PM EDT Office Visit [facility] Hematology/BMT and Cellular Therapy Program [address] [address] Zonia Hoffman, ADJUSTO WRITER OPERATOR 800 [facility] [address] [place] [phone] documented as of this encounter Visit Diagnoses Not on filedocumented in this encounter Additional Health Concerns Assessment Noted Time A fall risk assessment has been complete d for the patient 09/19/2024 8:38 AM EDT A Body Mass Index follow-up plan has been documented for the patient 05/28/2024 1:52 PM EST documented as of this encounter Care Teams Attorney Lawyer Relationship Specialty Start Date End Date Jevon Vazquez MD [address] [place] [address] #1 #1 Julien JOSEP [id number] PCP - General 03/23/22 documented as of this encounter
--- OUTSIDE RECORDS SUMMARY | 2024-10-24 08:53 | XMS_ITS | Encounter Summary ---
Author Organization Healthcare Address [address] [place] [address] Care Team Providers Care Burner Tender Name Role Phone Jevon Vazquez MD Primary Care Provider [phone] Encounter Details Date Type Department Care Team [...] Hematology/BMT and Cellular Therapy Program [address] [address] 10/29/2024 1:30 PM EDT Office Visit [facility] Hematology/BMT and Cellular Therapy Program [address] [phone] Zonia Hoffman, PLEATER [address] [facility] [address] [place] [phone] 10/29/2024 3:00 PM EDT Appointment [facility] 2 [address] [place] [address] 10/30/2024 3:00 PM EDT Appointment [facility] 2 [address] [place] [address] 10/31/2024 3:00 PM EDT Appointment [facility] 2 [address] [place] [address] 11/01/2024 3:00 PM EDT Appointment [facility] 2 [address] [place] [address] 11/02/2024 3:00 PM EDT Appointment [facility] 1 [address] [place] [address] 2024 3:00 PM EDT Appointment [facility] 2 [address] [place] [address] 11/04/2024 3:00 PM EDT Appointment [facility] 2 [address] [place] [address] 11/27/2024 12:30 PM EDT Clinical Support [facility] Hematology/BMT and Cellular Therapy Program [address] [address] 11/27/2024 1:00 PM EDT Office Visit [facility] Hematology/BMT and Cellular Therapy Program [address] [address] Zonia Hoffman, PLEATER [address] [facility] [address] [place] [phone] documented as of this encounter Visit Diagnoses Not on filedocumented in this encounter Additional Health Concerns Assessment Noted Time A fall risk assessment has been complete d for the patient 09/30/2024 9:33 AM EDT A Body Mass Index follow-up plan has been documented for the patient 05/28/2024 1:52 PM EST documented as of this encounter Care Teams Burner Tender Relationship Specialty Start Date End Date Jevon Vazquez MD [address] [place] [address] #1 #1 Julien JOSEP [id number] PCP - General 03/23/22 documented as of this encounter
--- OUTSIDE RECORDS SUMMARY | 2024-10-24 08:53 | XMS_ITS | Encounter Summary ---
Author Organization Healthcare Address [address] [place] [address] Care Team Providers Care Project Manager Entertainment And Media Name Role Phone Jevon Vazquez MD Primary Care Provider [phone] Encounter Details Date Type Department Care Team [...] Hematology/BMT and Cellular Therapy Program [address] [address] 10/29/2024 1:30 PM EDT Office Visit [facility] Hematology/BMT and Cellular Therapy Program [address] [address] Zonia Hoffman, PERSONAL FITNESS TRAINER 800 [facility] [address] [place] [phone] 10/29/2024 3:00 PM EDT Appointment [facility] 2 [address] [place] [address] 10/30/2024 3:00 PM EDT Appointment [facility] 2 [address] [place] [address] 10/31/2024 3:00 PM EDT Appointment [facility] 2 [address] [place] [address] 11/01/2024 3:00 PM EDT Appointment [facility] 2 [address] [place] [address] 11/02/2024 3:00 PM EDT Appointment [facility] 1 [address] [place] [address] 2024 3:00 PM EDT Appointment [facility] 2 [address] [place] [address] 11/04/2024 3:00 PM EDT Appointment [facility] 2 [address] [place] [address] 11/27/2024 12:30 PM EDT Clinical Support [facility]ology/BMT and Cellular Therapy Program [address] [address] 11/27/2024 1:00 PM EDT Office Visit [facility] Hematology/BMT and Cellular Therapy Program [address] [address] Zonia Hoffman, PERSONAL FITNESS TRAINER 800 [facility] [address] [place] [phone] documented as of this encounter Visit Diagnoses Not on filedocumented in this encounter Additional Health Concerns Assessment Noted Time A fall risk assessment has been complete d for the patient 09/19/2024 8:38 AM EDT A Body Mass Index follow-up plan has been documented for the patient 05/28/2024 1:52 PM EST documented as of this encounter Care Teams Project Manager Entertainment And Media Relationship Specialty Start Date End Date Jevon Vazquez MD [address] [place] [address] #1 #1 Julien JOSEP [id number] PCP - General 03/23/22 documented as of this encounter
--- OUTSIDE RECORDS SUMMARY | 2024-10-24 08:53 | XMS_ITS | Encounter Summary ---
Author Organization Healthcare Address [address] [place] [address] Care Team Providers Care Low Pressure Boiler Operator Name Role Phone Jevon Vazquez MD Primary Care Provider [phone] Encounter Details Date Type Department Care Team [...] Hematology/BMT and Cellular Therapy Program [address] [address] 10/29/2024 1:30 PM EDT Office Visit [facility] Hematology/BMT and Cellular Therapy Program [address] [address] Zonia Hoffman, SAND CONDITIONER 800 [facility] [address] [place] [address] 10/29/2024 3:00 PM EDT Appointment [facility] 2 [address] [place] [address] 10/30/2024 3:00 PM EDT Appointment [facility] 2 [address] [place] [address] 10/31/2024 3:00 PM EDT Appointment [facility] 2 [address] [place] [address] 11/01/2024 3:00 PM EDT Appointment [facility] 2 [address] [place] [address] 11/02/2024 3:00 PM EDT Appointment [facility] 1 [address] [place] [address] 2024 3:00 PM EDT Appointment [facility] 2 [address] [place] [address] 11/04/2024 3:00 PM EDT Appointment [facility] 2 [address] [place] [address] 11/27/2024 12:30 PM EDT Clinical Support [facility] Hematology/BMT and Cellular Therapy Program [address] [address] 11/27/2024 1:00 PM EDT Office Visit [facility] Hematology/BMT and Cellular Therapy Program [address] [address] Zonia Hoffman, SAND CONDITIONER 800 [facility] [address] [place] [phone] documented as of this encounter Visit Diagnoses Not on filedocumented in this encounter Additional Health Concerns Assessment Noted Time A fall risk assessment has been complete d for the patient 09/30/2024 9:33 AM EDT A Body Mass Index follow-up plan has been documented for the patient 05/28/2024 1:52 PM EST documented as of this encounter Care Teams Low Pressure Boiler Operator Relationship Specialty Start Date End Date Jevon Vazquez MD [address] [place] [address] #1 #1 Julien JOSEP [id number] PCP - General 03/23/22 documented as of this encounter
--- OUTSIDE RECORDS SUMMARY | 2024-10-24 08:53 | XMS_ITS | Clinical Summary ---
Author Organization [facility] Address [address] [place] [address] Care Team Providers Care Chiseler Head Name Role Phone David Vazquez Primary Care Provider [phone] Allergies No known active allergies Medications atorvastatin [...] series) 2025 Medical Devices Implanted Type Area Tower Equipment Installer Device Identifier Shelf Expiration Date Model / Serial / Lot Mis Ply Scr 6.5x50mm - [id number] Implanted:Qty : 1 on 01/30/2023 by Ivan Bartholomew MD at [facility] [place] Screw N/A: Spine Lumbar [employer] [id number] / / Mis Ply Scr 6.5x45mm - [id number] Implanted:Qty : 3 on 01/30/2023 by Ivan Bartholomew MD at [facility] [place] Screw N/A: Spine Lumbar [employer] [id number] / / Reline Mas Reduction Screw 7.5x45 - [id number] Implanted:Qty : 2 on 01/30/2023 by Ivan Bartholomew MD at [facility] [place] Screw N/A: Spine Lumbar [employer] [id number] / / Grft Dbm Vesuvius Putty 5cc - [id number] Implanted:Qty : 1 on 01/30/2023 by Ivan Bartholomew MD at [facility] [place] [employer] [id number] 04/20/2025 [id number] P / [id number] / Putty I-Factor 5.0cc - [id number] Implanted:Qty : 1 on 01/30/2023 by Ivan Bartholomew MD at [facility] N/A: Spine Lumbar [employer] 03/15/2025 [id number] / / [id number] Modulus Xlw [id number] 10 Degree - [id number] Implanted:Qty : 1 on 01/30/2023 by Ivan Bartholomew MD at [facility] [place] N/A: Spine Lumbar [employer] [id number] / / [id number] Modulus Xlw [id number] - [id number] Implanted:Qty : 1 on 01/30/2023 by Ivan Bartholomew MD at [facility] [place] N/A: Spine Lumbar [employer] 09/28/2027 [id number] / / [id number] Reln Lock Scr 5.5mm Opn Tulip - [id number] Implanted:Qty : 6 on 01/30/2023 by Ivan Bartholomew MD at [facility] N/A: Spine Lumbar [employer] [id number] / / Reln Mas Ti Petar 5.5x70mm - [id number] Implanted:Qty : 2 on 01/30/2023 by Ivan Bartholomew MD at [facility] N/A: Spine Lumbar [employer] [id number] / / Procedures Procedure Name Priority Date/Time [...] Hgb A1C 6.0(H) 4.0 - 5.6 % [facility] Comment: Reference Ranges for [...] Glycohemoglobin Standardization program (NGSP) and [facility] Estimated Average Glucose 126(H) 68 - 114 mg/dL [facility] Whole Blood (Blood) 01/24/2023 2:32 PM EDT 01/24/2023 6:00 PM EDT us Ivan Bartholomew MD CHEMISTRY ORDERABLES Fin al Result [facility] [address] * (ABNORMAL) BASIC METABOLIC PANEL (BMP=EP1) (01/24/2023 2:32 PM EDT) Sodium 141 135 - 146 mmol/L [facility] Potassium 4.8 3.5 - 5.1 mmol/L [facility] Chloride 107 98 - 110 mmol/L [facility] CO2 24 22 - 29 mmol/L [facility] Anion Gap 10 5 - 13 mmol/L [facility] Comment:Anion gap calculatio n does not include potassium (K+) value. BUN 17 7 - 25 mg/dL [facility] Creatinine 1.20 0.50 - 1.20 mg/dL [facility] Glucose 125(H) 71 - 99 mg/dL [facility] Comment:Reference range (71- 99 mg/dL) refers only to fasting samples, and does not apply to non-fasting samples. eGFR CKD-EPI 2020 48 See Note [facility] Comment: eGFR calculated with 2020 CKD-EPI equation using creatinine, patient's age and gender. Other factors, especially muscle mass, may affect accuracy and need to be considered. Patient values should be interpreted as a trend. The reference interval is >60 mL/min/1.73m2. Calcium 10.3 8.5 - 10.5 mg/dL [facility] BUN/Creatinine Ratio 14 [facility] Serum 01/24/2023 2:32 PM EDT 01/24/2023 5:54 PM EDT us Lexi SUAREZ CHEMISTRY ORDERABLES Final Resu lt [facility] [address] from Last 3 Months or Most Recently Relevant to Health Maintenance Insurance MEDICARE PART A [facility] [address] [address] [place] [address] ANTH Advance Directives For more information, please contact: [phone] * Full Code (Latest Code Status on File) Date Activated Date Inactivated Comments 01/30/2023 9:13 AM No automated chest compression devices for [facility]AD Patients Care Teams Chiseler Head Relationship Specialty Start Date End Date David Vazquez [address] [place] [id number] PCP - General 01/24/23
--- OUTSIDE RECORDS SUMMARY | 2024-10-24 08:53 | XMS_ITS | Clinical Summary ---
Author Organization [facility] Address [address] [place] [address] Phone Care Team Providers Care Chain Carrier Name Role Phone Jevon Vazquez MD Primary Care Provider [phone] Allergies Active Allergy Reactions Criticality Noted Date [...] L4-5 LAMINECTOMY; Surgeon: Ivan Bartholomew MD; Location: [facility]; Service: Spine Medical History [...] 5.6 % 11/14/2022 2:57 PM EDT PREFERRED [employer] Est. Avg Glucose 148 mg/dL 11/14/2022 2:57 PM EDT [employer] [facility] Blood VENOUS BLOOD / Unknown Venipuncture / Unknown 11/11/2022 3:46 PM EDT 11/11/2022 3:55 PM EDT Narrative [facility] marker.to [facility] - 11/14/2022 2:57 PM EDT REFERENCE RANGE: Normal: 4.0-5.6% Pre-diabetes: 5.7-6.4% Provisional diagnosis of diabetes: >6.4% Hgb F>10% and anything which shortens red cell survival, such as hemolytic anemia, or unstable hemoglobin variants such as HbSS, HbSC, or HbCC, will lower the HbA1c value associated with a given level of glycemic control. us Lexi Maloney DO CHEMISTRY ORDERABLES Final R esult [facility] marker.to [facility] [address] [facility] , [place] [address] * (ABNORMAL) BASIC METABOLIC PANEL (11/11/2022 3:46 PM EDT) Sodium 136 136 - 145 mmol/L 11/11/2022 4:11 PM EDT [facility] Potassium 3.8 3.5 - 5.0 mmol/L 11/11/2022 4:11 PM EDT [facility] Chloride 102 98 - 107 mmol/L 11/11/2022 4:11 PM EDT [facility] Total CO2 24 22 - 29 mmol/L 11/11/2022 4:11 PM EDT [facility] Anion Gap 10 7 - 16 mmol/L 11/11/2022 4:11 PM EDT [facility] Calcium 10.1 8.8 - 10.4 mg/dL 11/11/2022 4:11 PM EDT [facility] Glucose Lvl 147(H) 82 - 100 mg/dL 11/11/2022 4:11 PM EDT [facility] BUN 15 8 - 23 mg/dL 11/11/2022 4:11 PM EDT [facility] Creatinine 0.82 0.51 - 1.30 mg/dL 11/11/2022 4:11 PM EDT [facility] eGFR (CKD-EPIcr 2020) 76 >=60 mL/min/1.7 3 m2 11/11/2022 4:11 PM EDT [facility] Comment:Estimated GFR was ca lculated using the CKD-EPIcr (2020) equation refit without race. The equation is recommended by the National Kidney Foundation - [place] [employer] of Nephrology Task Force. Blood VENOUS BLOOD / Unknown Venipuncture / Unknown 11/11/2022 3:46 PM EDT 11/11/2022 3:54 PM EDT us Leona Hanna DO CHEMISTRY ORDERABLES Final Res ult [facility] [address] [place] [address] * DX BONE DENSITY AXIAL SKELETON (07/25/2022 9:14 AM EDT) Anatomical Region Laterality Modality Dexa Scan 07/25/2022 Narrative 07/25/2022 3:45 PM EDT Indication: The patient is a female age 65 or older who requires a bone density assessment. Study was performed on [employer] 5. Bone Density: Region BMD T-score Z-score [...] Most Recently Relevant to Health Maintenance Insurance [place] [address] MEDICARE SUPPLEMENT MEDICARE [place] PART A AND B Member Subscriber Plan / Payer (Ef fective 2016-Present) Name:Ashly Hernández Member ID:[id number] Relation to Subscriber:Self Name:Ashly Hernández Subscriber ID:[id number] Payer ID:Not on file Group ID:Not on file Type:Not on file Address: [address] MEDICARE SUPPLEMENT MEDICARE [place] PART A & [place] [phone] [place] PART A AND B Member Subscriber Plan / Payer (Ef fective 2016-Present) Name:Ashly Hernández Member ID:[id number] Relation to Subscriber:Self Name:Ashly Hernández Subscriber ID:[id number] Payer ID:Not on file Group ID:Not on file Type:Not on file Address: [address] MEDICARE SUPPLEMENT [employer] MEDICARE [place] PART A AND B [address] MEDICARE SUPPLEMENT Advance Directives For more information, please contact: [phone] * Full Code (Latest Code Status on File) Date Activated Date Inactivated Comments 11/14/2022 6:53 PM 11/16/2022 7:37 PM * Full Code Date Activated Date Inactivated Comments 11/12/2022 5:17 AM 11/14/2022 6:47 PM Care Teams Chain Carrier Relationship Specialty Start Date End Date Jevon Vazquez MD [address] [place] [address] PCP - General Family Medicine 11/10/22
--- OUTSIDE RECORDS SUMMARY | 2024-10-24 08:53 | XMS_ITS | Encounter Summary ---
Author Organization Healthcare Address [address] [place] [address] Care Team Providers Care Protective Signal Operations Supervisor Name Role Phone Jevon Vazquez MD Primary Care Provider [phone] Encounter Details Date Type Department Care Team [...] Hematology/BMT and Cellular Therapy Program [address] [address] 10/29/2024 1:30 PM EDT Office Visit [facility] Hematology/BMT and Cellular Therapy Program [address] [address] Zonia Hoffman, SCIENCE SPECIALIST 800 [facility] [address] [place] [phone] 10/29/2024 3:00 PM EDT Appointment [facility] [address] [place] [address] 10/30/2024 3:00 PM EDT Appointment [facility] [address] [place] [address] 10/31/2024 3:00 PM EDT Appointment [facility] [address] [place] [address] 11/01/2024 3:00 PM EDT Appointment [facility] [address] [place] [address] 11/02/2024 3:00 PM EDT Appointment [facility] 1 [address] [place] [address] 2024 3:00 PM EDT Appointment [facility] [address] [place] [address] 11/04/2024 3:00 PM EDT Appointment [facility] 2 [address] [place] [address] 11/27/2024 12:30 PM EDT Clinical Support [facility] Hematology/BMT and Cellular Therapy Program [address] [address] 11/27/2024 1:00 PM EDT Office Visit [facility] Hematology/BMT and Cellular Therapy Program [address] [address] Zonia Hoffman, SCIENCE SPECIALIST 800 [facility] [address] [place] [phone] documented as of this encounter Visit Diagnoses Not on filedocumented in this encounter Additional Health Concerns Assessment Noted Time A fall risk assessment has been complete d for the patient 07/30/2024 8:29 AM EDT A Body Mass Index follow-up plan has been documented for the patient 05/28/2024 1:52 PM EST documented as of this encounter Care Teams Protective Signal Operations Supervisor Relationship Specialty Start Date End Date Jevon Vazquez MD [address] [place] [address] #1 #1 Julien JOSEP [address] PCP - General 03/23/22 documented as of this encounter
--- OUTSIDE RECORDS SUMMARY | 2024-10-24 08:53 | XMS_ITS | Encounter Summary ---
Author Organization Healthcare Address [address] [place] [address] Care Team Providers Care Dial Marker Name Role Phone Jevon Vazquez MD Primary Care Provider [phone] Encounter Details Date Type Department Care Team (Latest Contact Info) Description 10/23/2024 Travel Social History Tobacco Use Types Packs/Day [...] Hematology/BMT and Cellular Therapy Program [address] [address] 10/29/2024 1:30 PM EDT Office Visit [facility] Hematology/BMT and Cellular Therapy Program [address] [address] Zonia Hoffman, PRINTING TECHNICIAN 800 [facility] [address] [place] [address] 10/29/2024 3:00 PM EDT Appointment [facility] 2 [address] [place] [address] 10/30/2024 3:00 PM EDT Appointment [facility] 2 [address] [place] [address] 10/31/2024 3:00 PM EDT Appointment [facility] 2 [address] [place] [address] 11/01/2024 3:00 PM EDT Appointment [facility] 2 [address] [place] [address] 11/02/2024 3:00 PM EDT Appointment [facility] 1 [address] [place] [address] 2024 3:00 PM EDT Appointment [facility] 2 [address] [place] [address] 11/04/2024 3:00 PM EDT Appointment [facility] 2 [address] [place] [address] 11/27/2024 12:30 PM EDT Clinical Support [facility] Hematology/BMT and Cellular Therapy Program [address] [address] 11/27/2024 1:00 PM EDT Office Visit [facility] Hematology/BMT and Cellular Therapy Program [address] [address] Zonia Hoffman, PRINTING TECHNICIAN 800 [facility] [address] [place] [phone] documented as of this encounter Visit Diagnoses Not on filedocumented in this encounter Additional Health Concerns Assessment Noted Time A fall risk assessment has been complete d for the patient 09/30/2024 9:33 AM EDT A Body Mass Index follow-up plan has been documented for the patient 05/28/2024 1:52 PM EST documented as of this encounter Care Teams Dial Marker Relationship Specialty Start Date End Date Jevon Vazquez MD [address] [place] [address] #1 #1 Julien JOSEP [address] PCP - General 03/23/22 documented as of this encounter
--- OUTSIDE RECORDS SUMMARY | 2024-10-24 08:53 | XMS_ITS | Encounter Summary ---
Author Organization Healthcare Address [address] [place] [address] Care Team Providers Care Remote Sensing Advisor Name Role Phone Jevon Vazquez MD Primary Care Provider [phone] Encounter Details Date Type Department Care Team (Latest Contact Info) Description 10/22/2024 Travel Social History Tobacco Use Types Packs/Day [...] Hematology/BMT and Cellular Therapy Program [address] [address] 10/29/2024 1:30 PM EDT Office Visit [facility] Hematology/BMT and Cellular Therapy Program [address] [address] Zonia Hoffman, BIBLICAL LANGUAGES PROFESSOR 800 [facility] [address] [place] [phone] 10/29/2024 3:00 PM EDT Appointment [facility] [address] [place] [address] 10/30/2024 3:00 PM EDT Appointment [facility] 2 [address] [place] [address] 10/31/2024 3:00 PM EDT Appointment [facility] 2 [address] [place] [address] 11/01/2024 3:00 PM EDT Appointment [facility] 2 [address] [place] [address] 11/02/2024 3:00 PM EDT Appointment [facility] 1 [address] [place] [address] 2024 3:00 PM EDT Appointment [facility] 2 [address] [place] [address] 11/04/2024 3:00 PM EDT Appointment [facility] 2 [address] [place] [address] 11/27/2024 12:30 PM EDT Clinical Support [facility] Hematology/BMT and Cellular Therapy Program [address] [address] 11/27/2024 1:00 PM EDT Office Visit [facility] Hematology/BMT and Cellular Therapy Program [address] [address] Zonia Hoffman, BIBLICAL LANGUAGES PROFESSOR 800 [facility] [address] [place] [phone] documented as of this encounter Visit Diagnoses Not on filedocumented in this encounter Additional Health Concerns Assessment Noted Time A fall risk assessment has been complete d for the patient 09/30/2024 9:33 AM EDT A Body Mass Index follow-up plan has been documented for the patient 05/28/2024 1:52 PM EST documented as of this encounter Care Teams Remote Sensing Advisor Relationship Specialty Start Date End Date Jevon Vazquez MD [address] [place] [address] #1 #1 Julien JOSEP [address] PCP - General 03/23/22 documented as of this encounter
--- OUTSIDE RECORDS SUMMARY | 2024-10-24 08:53 | XMS_ITS | Encounter Summary ---
Author Organization Healthcare Address [address] [place] [address] Care Team Providers Care Brand Representative Name Role Phone Jevon Vazquez MD Primary Care Provider [phone] Encounter Details Date Type Department Care Team [...] Hematology/BMT and Cellular Therapy Program [address] [address] 10/29/2024 1:30 PM EDT Office Visit [facility] Hematology/BMT and Cellular Therapy Program [address] [address] Zonia Hoffman, ENVIRONMENTAL INSPECTOR 800 [facility] [address] [place] [phone] 10/29/2024 3:00 PM EDT Appointment [facility] 2 [address] [place] [address] 10/30/2024 3:00 PM EDT Appointment [facility] 2 [address] [place] [address] 10/31/2024 3:00 PM EDT Appointment [facility] 2 [address] [place] [address] 11/01/2024 3:00 PM EDT Appointment [facility] 2 [address] [place] [address] 11/02/2024 3:00 PM EDT Appointment [facility] 1 [address] [place] [address] 2024 3:00 PM EDT Appointment [facility] 2 [address] [place] [address] 11/04/2024 3:00 PM EDT Appointment [facility] 2 [address] [place] [address] 11/27/2024 12:30 PM EDT Clinical Support [facility] Hematology/BMT and Cellular Therapy Program [address] [address] 11/27/2024 1:00 PM EDT Office Visit [facility] Hematology/BMT and Cellular Therapy Program [address] [address] Zonia Hoffman, ENVIRONMENTAL INSPECTOR 800 [facility] [address] [place] [phone] documented as of this encounter Visit Diagnoses Not on filedocumented in this encounter Additional Health Concerns Assessment Noted Time A fall risk assessment has been complete d for the patient 09/19/2024 8:38 AM EDT A Body Mass Index follow-up plan has been documented for the patient 05/28/2024 1:52 PM EST documented as of this encounter Care Teams Brand Representative Relationship Specialty Start Date End Date Jevon Vazquez MD [address] [place] [address] #1 #1 Julien JOSEP [address] PCP - General 03/23/22 documented as of this encounter
--- OUTSIDE RECORDS SUMMARY | 2024-10-24 08:53 | XMS_ITS | Encounter Summary ---
Author Organization Healthcare Address [address] [place] [address] Care Team Providers Care Authorization Rep Name Role Phone Jevon Vazquez MD Primary Care Provider [phone] Encounter Details Date Type Department Care Team [...] Hematology/BMT and Cellular Therapy Program [address] [address] 10/29/2024 1:30 PM EDT Office Visit [facility] Hematology/BMT and Cellular Therapy Program [address] [address] Zonia Hoffman, REEL ASSEMBLER 800 [facility] [address] [place] [phone] 10/29/2024 3:00 PM EDT Appointment [facility] 2 [address] [place] [address] 10/30/2024 3:00 PM EDT Appointment [facility] 2 [address] [place] [address] 10/31/2024 3:00 PM EDT Appointment [facility] 2 [address] [place] [address] 11/01/2024 3:00 PM EDT Appointment [facility] 2 [address] [place] [address] 11/02/2024 3:00 PM EDT Appointment [facility] 1 [address] [place] [address] 2024 3:00 PM EDT Appointment [facility] 2 [address] [place] [address] 11/04/2024 3:00 PM EDT Appointment [facility] 2 [address] [place] [address] 11/27/2024 12:30 PM EDT Clinical Support [facility] Hematology/BMT and Cellular Therapy Program [address] [address] 11/27/2024 1:00 PM EDT Office Visit [facility] Hematology/BMT and Cellular Therapy Program [address] [address] Zonia Hoffman, REEL ASSEMBLER 800 [facility] [address] [place] [phone] documented as of this encounter Visit Diagnoses Not on filedocumented in this encounter Additional Health Concerns Assessment Noted Time A fall risk assessment has been complete d for the patient 07/30/2024 8:29 AM EDT A Body Mass Index follow-up plan has been documented for the patient 05/28/2024 1:52 PM EST documented as of this encounter Care Teams Authorization Rep Relationship Specialty Start Date End Date Jevon Vazquez MD [address] [place] [address] #1 #1 Julien JOSEP [address] PCP - General 03/23/22 documented as of this encounter
--- OUTSIDE RECORDS SUMMARY | 2024-10-24 08:53 | XMS_ITS | Encounter Summary ---
Author Organization [facility] Address [address] [place] [address] Care Team Providers Care Information Management Specialist Name Role Phone Jevon Vazquez MD Primary Care Provider [phone] Encounter Details Date Type Department Care Team ([facility] Contact Info) Description 10/08/2024 Orders Only [facility] Hematology/BMT and Cellular Therapy Program [address] [address] 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, RN [facility] Acute myeloid [...] Hematology/BMT and Cellular Therapy Program [address] [address] 10/29/2024 1:30 PM EDT Office Visit [facility] Hematology/BMT and Cellular Therapy Program [address] [address] Zonia Hoffman, LABOR AND DELIVERY NURSE 800 [facility] [address] [place] [phone] 10/29/2024 3:00 PM EDT Appointment [facility] 2 [address] [place] [address] 10/30/2024 3:00 PM EDT Appointment [facility] 2 [address] [place] [address] 10/31/2024 3:00 PM EDT Appointment [facility] 2 [address] [place] [address] 11/01/2024 3:00 PM EDT Appointment [facility] 2 [address] [place] [address] 11/02/2024 3:00 PM EDT Appointment [facility] 1 [address] [place] [address] 2024 3:00 PM EDT Appointment [facility] 2 [address] [place] [address] 11/04/2024 3:00 PM EDT Appointment [facility] Infusion Clinic 2 [address] [place] [address] 11/27/2024 12:30 PM EDT Clinical Support [facility] Hematology/BMT and Cellular Therapy Program [address] [place] [address] 11/27/2024 1:00 PM EDT Office Visit [facility] Hematology/BMT and Cellular Therapy Program [address] [place] [address] Zonia Hoffman, LABOR AND DELIVERY NURSE 800 [facility] [address] [place] [phone] Scheduled Orders Name Type Priority Associated Diagnoses [...] as of this encounter Care Teams Information Management Specialist Relationship Specialty Start Date End Date Jevon Vazquez MD [address] [place] [address] #1 #1 JOSEP Victroia [address] PCP - General 03/23/22 documented as of this encounter
--- OUTSIDE RECORDS SUMMARY | 2024-10-24 08:53 | XMS_ITS | Encounter Summary ---
Author Organization Healthcare Address [address] [place] [address] Care Team Providers Care Installation Tech Name Role Phone Jevon Vazquez MD Primary Care Provider [phone] Encounter Details Date Type Department Care Team ([facility] st Contact Info) Description 09/01/2024 Telephone [facility] Hematology/BMT and Cellular Therapy Program [address] [address] Zonia Hoffman, SUBSTATION MANAGER 800 [facility] [address] [place] [phone] Social History Tobacco Use Types Packs/Day Years [...] told her to cancel. Please confirm Callback number:[phone] documented in this encounter Plan of Treatment Upcoming Encounters Date Type Department Care Team (Late st Contact Info) Description 10/29/2024 1:00 PM EDT Clinical Support [facility] Hematology/BMT and Cellular Therapy Program [address] [address] 10/29/2024 1:30 PM EDT Office Visit PAV Hematology/BMT and Cellular Therapy Program [address] [address] Zonia Hoffman, SUBSTATION MANAGER 800 [facility] [address] [place] [phone] 10/29/2024 3:00 PM EDT Appointment [facility] 2 [address] [place] [address] 10/30/2024 3:00 PM EDT Appointment [facility] 2 [address] [place] [address] 10/31/2024 3:00 PM EDT Appointment [facility] 2 [address] [place] [address] 11/01/2024 3:00 PM EDT Appointment [facility] 2 [address] [place] [address] 11/02/2024 3:00 PM EDT Appointment [facility] 1 [address] [place] [address] 2024 3:00 PM EDT Appointment [facility] 2 [address] [place] [address] 11/04/2024 3:00 PM EDT Appointment [facility] 2 [address] [place] [address] 11/27/2024 12:30 PM EDT Clinical Support [facility] Hematology/BMT and Cellular Therapy Program [address] [place] [address] 11/27/2024 1:00 PM EDT Office Visit PAV Hematology/BMT and Cellular Therapy Program [address] [place] [address] Zonia Hoffman, SUBSTATION MANAGER 800 [facility] [address] [place] [phone] documented as of this encounter Visit Diagnoses Not on filedocumented in this encounter Additional Health Concerns Assessment Noted Time A fall risk assessment has been complete d for the patient 07/30/2024 8:29 AM EDT A Body Mass Index follow-up plan has been documented for the patient 05/28/2024 1:52 PM EST documented as of this encounter Care Teams Installation Tech Relationship Specialty Start Date End Date Jevon Vazquez MD [address] [place] [address] #1 [address]1 [place] [address] PCP - General 03/23/22 documented as of this encounter
--- OUTSIDE RECORDS SUMMARY | 2024-10-24 08:53 | XMS_ITS | Encounter Summary ---
Author Organization Healthcare Address [address] [place] [address] Care Team Providers Care Pizza Maker Name Role Phone Jevon Vazquez MD Primary Care Provider [phone] Encounter Details Date Type Department Care Team [...] Hematology/BMT and Cellular Therapy Program [address] [address] 10/29/2024 1:30 PM EDT Office Visit [facility] Hematology/BMT and Cellular Therapy Program [address] [address] Zonia Hoffman, REGISTERED OCCUPATIONAL THERAPIST 800 [facility] [address] [place] [phone] 10/29/2024 3:00 PM EDT Appointment [facility] 2 [address] [place] [address] 10/30/2024 3:00 PM EDT Appointment [facility] 2 [address] [place] [address] 10/31/2024 3:00 PM EDT Appointment [facility] 2 [address] [place] [address] 11/01/2024 3:00 PM EDT Appointment [facility] 2 [address] [place] [address] 11/02/2024 3:00 PM EDT Appointment [facility] 1 [address] [place] [address] 2024 3:00 PM EDT Appointment [facility] 2 [address] [place] [address] 11/04/2024 3:00 PM EDT Appointment [facility] 2 [address] [place] [address] 11/27/2024 12:30 PM EDT Clinical Support [facility] Hematology/BMT and Cellular Therapy Program [address] [address] 11/27/2024 1:00 PM EDT Office Visit PAV Hematology/BMT and Cellular Therapy Program [address] [address] Zonia Hoffman, REGISTERED OCCUPATIONAL THERAPIST 800 [facility] [address] [place] [phone] documented as of this encounter Visit Diagnoses Not on filedocumented in this encounter Additional Health Concerns Assessment Noted Time A fall risk assessment has been complete d for the patient 09/19/2024 8:38 AM EDT A Body Mass Index follow-up plan has been documented for the patient 05/28/2024 1:52 PM EST documented as of this encounter Care Teams Pizza Maker Relationship Specialty Start Date End Date Jevon Vazquez MD [address] [place] [address] #1 #1 [place] [id number] PCP - General 03/23/22 documented as of this encounter
--- OUTSIDE RECORDS SUMMARY | 2024-10-24 08:53 | XMS_ITS | Encounter Summary ---
Author Organization Healthcare Address [address] [place] [address] Care Team Providers Care Community Health Nursing Director Name Role Phone Jevon Vazquez MD Primary Care Provider [phone] Encounter Details Date Type Department Care Team [...] Hematology/BMT and Cellular Therapy Program [address] [address] 10/29/2024 1:30 PM EDT Office Visit [facility] Hematology/BMT and Cellular Therapy Program [address] [address] Zonia Hoffman, MEDICAID BILLER 800 [facility] [address] [place] [phone] 10/29/2024 3:00 PM EDT Appointment [facility] 2 [address] [place] [address] 10/30/2024 3:00 PM EDT Appointment [facility] 2 [address] [place] [address] 10/31/2024 3:00 PM EDT Appointment [facility] 2 [address] [place] [address] 11/01/2024 3:00 PM EDT Appointment [facility] 2 [address] [place] [address] 11/02/2024 3:00 PM EDT Appointment [facility] 1 [address] [place] [address] 2024 3:00 PM EDT Appointment [facility] 2 [address] [place] [address] 11/04/2024 3:00 PM EDT Appointment [facility] 2 [address] [place] [address] 11/27/2024 12:30 PM EDT Clinical Support [facility] Hematology/BMT and Cellular Therapy Program [address] [address] 11/27/2024 1:00 PM EDT Office Visit PAV Hematology/BMT and Cellular Therapy Program [address] [address] Zonia Hoffman, MEDICAID BILLER 800 [facility] [address] [place] [phone] documented as of this encounter Visit Diagnoses Not on filedocumented in this encounter Additional Health Concerns Assessment Noted Time A fall risk assessment has been complete d for the patient 09/19/2024 8:38 AM EDT A Body Mass Index follow-up plan has been documented for the patient 05/28/2024 1:52 PM EST documented as of this encounter Care Teams Community Health Nursing Director Relationship Specialty Start Date End Date Jevon Vazquez MD [address] [place] [address] #1 #1 [place] [id number] PCP - General 03/23/22 documented as of this encounter
--- OUTSIDE RECORDS SUMMARY | 2024-10-24 08:53 | XMS_ITS | Encounter Summary ---
Author Organization Healthcare Address [address] [place] [address] Care Team Providers Care Fiberglass Insulation Installer Name Role Phone Jevon Vazquez MD Primary Care Provider [phone] Encounter Details Date Type Department Care Team [...] Hematology/BMT and Cellular Therapy Program [address] [address] 10/29/2024 1:30 PM EDT Office Visit [facility] Hematology/BMT and Cellular Therapy Program [address] [address] Zonia Hoffman, PRESIDENT FINANCIAL INSTITUTION 800 [facility] [address] [place] [phone] 10/29/2024 3:00 PM EDT Appointment [facility] 2 [address] [place] [address] 10/30/2024 3:00 PM EDT Appointment [facility] 2 [address] [place] [address] 10/31/2024 3:00 PM EDT Appointment [facility] 2 [address] [place] [address] 11/01/2024 3:00 PM EDT Appointment [facility] 2 [address] [place] [address] 11/02/2024 3:00 PM EDT Appointment [facility] 1 [address] [place] [address] 2024 3:00 PM EDT Appointment [facility] 2 [address] [place] [address] 11/04/2024 3:00 PM EDT Appointment [facility] 2 [address] [place] [address] 11/27/2024 12:30 PM EDT Clinical Support [facility] CC Hematology/BMT and Cellular Therapy Program [address] [address] 11/27/2024 1:00 PM EDT Office Visit PAV Hematology/BMT and Cellular Therapy Program [address] [address] Zonia Hoffman, PRESIDENT FINANCIAL INSTITUTION 800 [facility] [address] [place] [phone] documented as of this encounter Visit Diagnoses Not on filedocumented in this encounter Additional Health Concerns Assessment Noted Time A fall risk assessment has been complete d for the patient 09/19/2024 8:38 AM EDT A Body Mass Index follow-up plan has been documented for the patient 05/28/2024 1:52 PM EST documented as of this encounter Care Teams Fiberglass Insulation Installer Relationship Specialty Start Date End Date Jevon Vazquez MD [address] [place] [address] #1 #1 [place] [id number] PCP - General 03/23/22 documented as of this encounter
--- OUTSIDE RECORDS SUMMARY | 2024-10-24 08:53 | XMS_ITS | Encounter Summary ---
Author Organization [facility] Address [address] [place] [address] Care Team Providers Care Security Vehicle Patrol Officer Name Role Phone Jevon Vazquez MD Primary Care Provider [phone] Reason for Visit * Reason Comments Med Refill Encounter Details Date Type Department Care Team ([facility] Contact Info) Description 10/14/2024 Refill [facility] CC Hematology/BMT and Cellular Therapy Program [address] [phone] New Mckinney MD 800 [facility] [address] [place] [phone] Social History Tobacco Use Types Packs/Day Years [...] Team ([facility] Contact Info) Description 10/29/2024 1:00 PM EDT Clinical Support [facility] Hematology/BMT and Cellular Therapy Program [address] [phone] 10/29/2024 1:30 PM EDT Office Visit [facility] Hematology/BMT and Cellular Therapy Program [address] [address] Zonia Hoffman, ATTACHER 800 [facility] [address] [place] [phone] 10/29/2024 3:00 PM EDT Appointment [facility] 2 [address] [place] [address] 10/30/2024 3:00 PM EDT Appointment [facility] 2 [address] [place] [address] 10/31/2024 3:00 PM EDT Appointment [facility] 2 [address] [place] [address] 11/01/2024 3:00 PM EDT Appointment [facility] 2 [address] [place] [address] 11/02/2024 3:00 PM EDT Appointment [facility] 1 [address] [place] [address] 2024 3:00 PM EDT Appointment [facility] 2 [address] [place] [address] 11/04/2024 3:00 PM EDT Appointment [facility] 2 [address] [place] [address] 11/27/2024 12:30 PM EDT Clinical Support [facility] Hematology/BMT and Cellular Therapy Program [address] [place] [address] 11/27/2024 1:00 PM EDT Office Visit [facility] CC Hematology/BMT and Cellular Therapy Program [address] [place] [address] Zonia Hoffman, ATTACHER 800 [facility] [address] [place] [phone] documented as of this encounter Visit Diagnoses Not on filedocumented in this encounter Additional Health Concerns Assessment Noted Time A fall risk assessment has been complete d for the patient 09/30/2024 9:33 AM EDT A Body Mass Index follow-up plan has been documented for the patient 05/28/2024 1:52 PM EST documented as of this encounter Care Teams Security Vehicle Patrol Officer Relationship Specialty Start Date End Date Jevon Vazquez MD [address] [place] [address] #1 #1 [place] [address] PCP - General 03/23/22 documented as of this encounter
--- OUTSIDE RECORDS SUMMARY | 2024-10-24 08:53 | XMS_ITS | Encounter Summary ---
Author Organization Healthcare Address [address] [place] [address] Care Team Providers Care Speech And Hearing Director Name Role Phone Jevon Vazquez MD Primary Care Provider [phone] Encounter Details Date Type Department Care Team ([facility] st Contact Info) Description 10/13/2024 Telephone [facility] CC Hematology/BMT and Cellular Therapy Program [address] [address] Zonia Hoffman, FIRE PILOT 800 [facility] [address] [place] [address] Social History Tobacco Use Types Packs/Day Years [...] needs to be delayed again Callback number: [phone] documented in this encounter Plan of Treatment Upcoming Encounters Date Type Department Care Team ([facility] st Contact Info) Description 10/29/2024 1:00 PM EDT Clinical Support [facility] Hematology/BMT and Cellular Therapy Program [address] [address] 10/29/2024 1:30 PM EDT Office Visit [facility] Hematology/BMT and Cellular Therapy Program [address] [address] Zonia Hoffman, FIRE PILOT 800 [facility] [address] [place] [phone] 10/29/2024 3:00 PM EDT Appointment [facility] 2 [address] [place] [address] 10/30/2024 3:00 PM EDT Appointment [facility] 2 [address] [place] [address] 10/31/2024 3:00 PM EDT Appointment [facility] 2 [address] [place] [address] 11/01/2024 3:00 PM EDT Appointment [facility] 2 [address] [place] [address] 11/02/2024 3:00 PM EDT Appointment [facility] 1 [address] [place] [address] 2024 3:00 PM EDT Appointment [facility] 2 [address] [place] [address] 11/04/2024 3:00 PM EDT Appointment [facility] 2 [address] [place] [address] 11/27/2024 12:30 PM EDT Clinical Support [facility] CC Hematology/BMT and Cellular Therapy Program [address] [place] [address] 11/27/2024 1:00 PM EDT Office Visit [facility] CC Hematology/BMT and Cellular Therapy Program [address] [place] [address] Zonia Hoffman, FIRE PILOT 800 [facility] [address] [place] [phone] documented as of this encounter Visit Diagnoses Not on filedocumented in this encounter Additional Health Concerns Assessment Noted Time A fall risk assessment has been complete d for the patient 09/30/2024 9:33 AM EDT A Body Mass Index follow-up plan has been documented for the patient 05/28/2024 1:52 PM EST documented as of this encounter Care Teams Speech And Hearing Director Relationship Specialty Start Date End Date Jevon Vazquez MD [address] [place] [address] #1 #1 [place] [address] PCP - General 03/23/22 documented as of this encounter
--- OUTSIDE RECORDS SUMMARY | 2024-10-24 08:53 | XMS_ITS | Encounter Summary ---
Author Organization Healthcare Address [address] [place] [address] Care Team Providers Care Floating Operator Name Role Phone Jevon Vazquez MD Primary Care Provider [phone] Encounter Details Date Type Department Care Team [...] Hematology/BMT and Cellular Therapy Program [address] [address] 10/29/2024 1:30 PM EDT Office Visit [facility] CC Hematology/BMT and Cellular Therapy Program [address] [address] Zonia Hoffman, RISK DEVELOPER 800 [facility] [address] [place] [address] 10/29/2024 3:00 PM EDT Appointment [facility] 2 [address] [place] [address] 10/30/2024 3:00 PM EDT Appointment [facility] 2 [address] [place] [address] 10/31/2024 3:00 PM EDT Appointment [facility] 2 [address] [place] [address] 11/01/2024 3:00 PM EDT Appointment [facility] 2 [address] [place] [address] 11/02/2024 3:00 PM EDT Appointment [facility] 1 [address] [place] [address] 2024 3:00 PM EDT Appointment [facility] 2 [address] [place] [address] 11/04/2024 3:00 PM EDT Appointment [facility] 2 [address] [place] [address] 11/27/2024 12:30 PM EDT Clinical Support [facility] CC Hematology/BMT and Cellular Therapy Program [address] [address] 11/27/2024 1:00 PM EDT Office Visit PAV Hematology/BMT and Cellular Therapy Program [address] [address] Zonia Hoffman, RISK DEVELOPER 800 [facility] [address] [place] [phone] documented as of this encounter Visit Diagnoses Not on filedocumented in this encounter Additional Health Concerns Assessment Noted Time A fall risk assessment has been complete d for the patient 09/19/2024 8:38 AM EDT A Body Mass Index follow-up plan has been documented for the patient 05/28/2024 1:52 PM EST documented as of this encounter Care Teams Floating Operator Relationship Specialty Start Date End Date Jevon Vazquez MD [address] [place] [address] #1 #1 [place] [address] PCP - General 03/23/22 documented as of this encounter
--- OUTSIDE RECORDS SUMMARY | 2024-10-24 08:53 | XMS_ITS | Encounter Summary ---
Author Organization Healthcare Address [address] [place] [address] Care Team Providers Care Supervisor [place] Name Role Phone Jevon Vazquez MD Primary Care Provider [phone] Encounter Details Date Type Department Care Team (Late Contact Info) Description 09/30/2024 Telephone [facility] CC Hematology/BMT and Cellular Therapy Program [address] [place] [address] Zoraida Good, RN [facility] Social History Tobacco Use [...] Hematology/BMT and Cellular Therapy Program [address] [place] [address] 10/29/2024 1:30 PM EDT Office Visit [facility] CC Hematology/BMT and Cellular Therapy Program [address] [place] [address] Zonia Hoffman, DIRECTOR DIGITAL COMMUNICATIONS 800 [facility] [address] [address] 10/29/2024 3:00 PM EDT Appointment [facility] 2 [address] [place] [address] 10/30/2024 3:00 PM EDT Appointment [facility] 2 [address] [place] [address] 10/31/2024 3:00 PM EDT Appointment [facility] 2 [address] [place] [address] 11/01/2024 3:00 PM EDT Appointment [facility] 2 [address] [place] [address] 11/02/2024 3:00 PM EDT Appointment [facility] 1 [address] [place] [address] 2024 3:00 PM EDT Appointment [facility] 2 [address] [place] [address] 11/04/2024 3:00 PM EDT Appointment [facility] 2 [address] [place] [address] 11/27/2024 12:30 PM EDT Clinical Support [facility] CC Hematology/BMT and Cellular Therapy Program [address] [place] [address] 11/27/2024 1:00 PM EDT Office Visit [facility] CC Hematology/BMT and Cellular Therapy Program [address] [place] [address] Zonia Hoffman, DIRECTOR DIGITAL COMMUNICATIONS 800 [facility] [address] [address] documented as of this encounter Visit Diagnoses Not on filedocumented in this encounter Additional Health Concerns Assessment Noted Time A fall risk assessment has been complete d for the patient 09/30/2024 9:33 AM EDT A Body Mass Index follow-up plan has been documented for the patient 05/28/2024 1:52 PM EST documented as of this encounter Care Teams Supervisor [place] Relationship Specialty Start Date End Date Jevon Vazquez MD [address] [place] [address] #1 #1 [place] [address] PCP - General 03/23/22 documented as of this encounter
--- OUTSIDE RECORDS SUMMARY | 2024-10-24 08:53 | XMS_ITS | Encounter Summary ---
Author Organization Healthcare Address [address] [place] [address] Care Team Providers Care Farmworker Livestock Name Role Phone Jevon Vazquez MD Primary Care Provider [phone] Encounter Details Date Type Department Care Team [...] Hematology/BMT and Cellular Therapy Program [address] [address] 10/29/2024 1:30 PM EDT Office Visit [facility] Hematology/BMT and Cellular Therapy Program [address] [address] Zonia Hoffman, HAND DRAWER IN 800 [facility] [address] [place] [address] 10/29/2024 3:00 PM EDT Appointment [facility] 2 [address] [place] [address] 10/30/2024 3:00 PM EDT Appointment [facility] 2 [address] [place] [address] 10/31/2024 3:00 PM EDT Appointment [facility] 2 [address] [place] [address] 11/01/2024 3:00 PM EDT Appointment [facility] 2 [address] [place] [address] 11/02/2024 3:00 PM EDT Appointment [facility] 1 [address] [place] [address] 2024 3:00 PM EDT Appointment [facility] 2 [address] [place] [address] 11/04/2024 3:00 PM EDT Appointment [facility] 2 [address] [place] [address] 11/27/2024 12:30 PM EDT Clinical Support [facility] CC Hematology/BMT and Cellular Therapy Program [address] [address] 11/27/2024 1:00 PM EDT Office Visit PAV Hematology/BMT and Cellular Therapy Program [address] [address] Zonia Hoffman, HAND DRAWER IN 800 [facility] [address] [place] [phone] documented as of this encounter Visit Diagnoses Not on filedocumented in this encounter Additional Health Concerns Assessment Noted Time A fall risk assessment has been complete d for the patient 09/30/2024 9:33 AM EDT A Body Mass Index follow-up plan has been documented for the patient 05/28/2024 1:52 PM EST documented as of this encounter Care Teams Farmworker Livestock Relationship Specialty Start Date End Date Jevon Vazquez MD [address] [place] [address] #1 #1 [place] [address] PCP - General 03/23/22 documented as of this encounter
--- OUTSIDE RECORDS SUMMARY | 2024-10-24 08:53 | XMS_ITS | Encounter Summary ---
Author Organization [facility] Address [address] [place] [address] Care Team Providers Care Lead Burner Name Role Phone Jevon Vazquez MD Primary Care Provider [phone] Reason for Visit * Reason Comments Med Refill Encounter Details Date Type Department Care Team ([facility] Contact Info) Description 09/12/2024 Refill [facility] Hematology/BMT and Cellular Therapy Program [address] [phone] New Mckinney MD 800 [facility] [address] [place] [phone] Social History Tobacco Use Types Packs/Day Years [...] Upcoming Encounters Date Type Department Care Team ([facility] Contact Info) Description 10/29/2024 1:00 PM EDT Clinical Support [facility] Hematology/BMT and Cellular Therapy Program [address] [phone] 10/29/2024 1:30 PM EDT Office Visit [facility] Hematology/BMT and Cellular Therapy Program [address] [phone] Zonia Hoffman, ADVERTISING CAMPAIGN MANAGER 800 [facility] [address] [place] [phone] 10/29/2024 3:00 PM EDT Appointment [facility] [address] [place] [address] 10/30/2024 3:00 PM EDT Appointment [facility] 2 [address] [place] [address] 10/31/2024 3:00 PM EDT Appointment [facility] 2 [address] [place] [address] 11/01/2024 3:00 PM EDT Appointment [facility] 2 [address] [place] [address] 11/02/2024 3:00 PM EDT Appointment [facility] 1 [address] [place] [address] 2024 3:00 PM EDT Appointment [facility] 2 [address] [place] [address] 11/04/2024 3:00 PM EDT Appointment [facility] 2 [address] [place] [address] 11/27/2024 12:30 PM EDT Clinical Support [facility] Hematology/BMT and Cellular Therapy Program [address] [place] [address] 11/27/2024 1:00 PM EDT Office Visit [facility] Hematology/BMT and Cellular Therapy Program [address] [place] [address] Zonia Hoffman, ADVERTISING CAMPAIGN MANAGER 800 [facility] [address] [place] [phone] documented as of this encounter Visit Diagnoses Not on filedocumented in this encounter Additional Health Concerns Assessment Noted Time A fall risk assessment has been complete d for the patient 07/30/2024 8:29 AM EDT A Body Mass Index follow-up plan has been documented for the patient 05/28/2024 1:52 PM EST documented as of this encounter Care Teams Lead Burner Relationship Specialty Start Date End Date Jevon Vazquez MD [address] [place] [address] #1 #1 [place] [address] PCP - General 03/23/22 documented as of this encounter
--- OUTSIDE RECORDS SUMMARY | 2024-10-24 08:53 | XMS_ITS | Encounter Summary ---
Author Organization Healthcare Address [address] [place] [address] Care Team Providers Care Senior Process Engineer Name Role Phone Jevon Vazquez MD Primary Care Provider [phone] Encounter Details Date Type Department Care Team [...] Hematology/BMT and Cellular Therapy Program [address] [address] 10/29/2024 1:30 PM EDT Office Visit [facility] Hematology/BMT and Cellular Therapy Program [address] [address] Zonia Hoffman, FRONT OFFICE ATTENDANT 800 [facility] [address] [place] [phone] 10/29/2024 3:00 PM EDT Appointment [facility] 2 [address] [place] [address] 10/30/2024 3:00 PM EDT Appointment [facility] 2 [address] [place] [address] 10/31/2024 3:00 PM EDT Appointment [facility] 2 [address] [place] [address] 11/01/2024 3:00 PM EDT Appointment [facility] 2 [address] [place] [address] 11/02/2024 3:00 PM EDT Appointment [facility] 1 [address] [place] [address] 2024 3:00 PM EDT Appointment [facility] 2 [address] [place] [address] 11/04/2024 3:00 PM EDT Appointment [facility] 2 [address] [place] [address] 11/27/2024 12:30 PM EDT Clinical Support [facility] Hematology/BMT and Cellular Therapy Program [address] [address] 11/27/2024 1:00 PM EDT Office Visit [facility] Hematology/BMT and Cellular Therapy Program [address] [address] Zonia Hoffman, FRONT OFFICE ATTENDANT 800 [facility] [address] [place] [phone] documented as of this encounter Visit Diagnoses Not on filedocumented in this encounter Additional Health Concerns Assessment Noted Time A fall risk assessment has been complete d for the patient 09/30/2024 9:33 AM EDT A Body Mass Index follow-up plan has been documented for the patient 05/28/2024 1:52 PM EST documented as of this encounter Care Teams Senior Process Engineer Relationship Specialty Start Date End Date Jevon Vazquez MD [address] [place] [address] #1 #1 [place] JOSEP [id number] PCP - General 03/23/22 documented as of this encounter
--- OUTSIDE RECORDS SUMMARY | 2024-10-24 08:53 | XMS_ITS | Encounter Summary ---
Author Organization Healthcare Address [address] [place] [address] Care Team Providers Care Supervisor Industrial Arts Education Name Role Phone Jevon Vazquez MD Primary Care Provider [phone] Encounter Details Date Type Department Care Team [...] Hematology/BMT and Cellular Therapy Program [address] [address] 10/29/2024 1:30 PM EDT Office Visit [facility] Hematology/BMT and Cellular Therapy Program [address] [phone] Zonia Hoffman, ROTARY MACHINE OPERATOR 800 [facility] [address] [place] [phone] 10/29/2024 3:00 PM EDT Appointment [facility] 2 [address] [place] [address] 10/30/2024 3:00 PM EDT Appointment [facility] 2 [address] [place] [address] 10/31/2024 3:00 PM EDT Appointment [facility] 2 [address] [place] [address] 11/01/2024 3:00 PM EDT Appointment [facility] 2 [address] [place] [address] 11/02/2024 3:00 PM EDT Appointment [facility] 1 [address] [place] [address] 2024 3:00 PM EDT Appointment [facility] 2 [address] [place] [address] 11/04/2024 3:00 PM EDT Appointment [facility] 2 [address] [place] [address] 11/27/2024 12:30 PM EDT Clinical Support [facility] Hematology/BMT and Cellular Therapy Program [address] [address] 11/27/2024 1:00 PM EDT Office Visit [facility] Hematology/BMT and Cellular Therapy Program [address] [address] Zonia Hoffman, ROTARY MACHINE OPERATOR 800 [facility] [address] [place] [phone] documented as of this encounter Visit Diagnoses Not on filedocumented in this encounter Additional Health Concerns Assessment Noted Time A fall risk assessment has been complete d for the patient 07/30/2024 8:29 AM EDT A Body Mass Index follow-up plan has been documented for the patient 05/28/2024 1:52 PM EST documented as of this encounter Care Teams Supervisor Industrial Arts Education Relationship Specialty Start Date End Date Jevon Vazquez MD [address] [place] [address] #1 #1 Jul[place] JOSEP [address] PCP - General 03/23/22 documented as of this encounter
--- OUTSIDE RECORDS SUMMARY | 2024-10-24 08:53 | XMS_ITS | Encounter Summary ---
Author Organization Healthcare Address [address] [place] [address] Care Team Providers Care Certified Physical Therapist Assistant Name Role Phone Jevon Vazquez MD Primary Care Provider [phone] Encounter Details Date Type Department Care Team [...] Hematology/BMT and Cellular Therapy Program [address] [address] 10/29/2024 1:30 PM EDT Office Visit [facility] Hematology/BMT and Cellular Therapy Program [address] [address] Zonia Hoffman, FOOD SERVICE KITCHEN SUPERVISOR 800 [facility] [address] [place] [phone] 10/29/2024 3:00 PM EDT Appointment [facility] 2 [address] [place] [address] 10/30/2024 3:00 PM EDT Appointment [facility] 2 [address] [place] [address] 10/31/2024 3:00 PM EDT Appointment [facility] 2 [address] [place] [address] 11/01/2024 3:00 PM EDT Appointment [facility] 2 [address] [place] [address] 11/02/2024 3:00 PM EDT Appointment [facility] 1 [address] [place] [address] 2024 3:00 PM EDT Appointment [facility] 2 [address] [place] [address] 11/04/2024 3:00 PM EDT Appointment [facility] 2 [address] [place] [address] 11/27/2024 12:30 PM EDT Clinical Support [facility] Hematology/BMT and Cellular Therapy Program [address] [address] 11/27/2024 1:00 PM EDT Office Visit [facility] Hematology/BMT and Cellular Therapy Program [address] [address] Zonia Hoffman, FOOD SERVICE KITCHEN SUPERVISOR 800 [facility] [address] [place] [phone] documented as of this encounter Visit Diagnoses Not on filedocumented in this encounter Additional Health Concerns Assessment Noted Time A fall risk assessment has been complete d for the patient 09/30/2024 9:33 AM EDT A Body Mass Index follow-up plan has been documented for the patient 05/28/2024 1:52 PM EST documented as of this encounter Care Teams Certified Physical Therapist Assistant Relationship Specialty Start Date End Date Jevon Vazquez MD [address] [place] [address] #1 #1 Jul[place] JOSEP [id number] PCP - General 03/23/22 documented as of this encounter
[2024-10-24 09:07] LABS: Hematocrit 23.7 % (37.0-47.0); Hemoglobin 8.0 g/dL (12.2-16.2); Immature Granulocytes % 0.4 %; Mean Corpuscular HGB Conc 33.8 g/dL (31.8-35.4); Mean Corpuscular Hemoglobin 37.9 pg (27.0-31.2); Mean Corpuscular Volume 112.3 fl (81-99); Nucleated Red Blood Cells % 0 %; Red Blood Count 2.11 M/mm3 (4.20-5.40); Red Cell Distribution Width-SD 70.1 fL; White Blood Count 2.6 K/mm3 (4.8-10.8)
[2024-10-24 09:10] LABS: Platelet Count 16 K/mm3 (142-424)
[2024-10-24 09:14] LABS: Alanine Aminotransferase 13 U/L (12-78); Albumin Level 3.6 g/dl (3.5-5.0); Albumin/Globulin Ratio 1.6 (1.1-1.8); Alkaline Phosphatase 43 U/L (38-126); Anion Gap 12.9 mEq/L (5-15); Aspartate Amino Transferase 33 U/L (14-36); Bilirubin,Total 0.4 mg/dl (0.2-1.3); Blood Urea Nitrogen 33 mg/dl (7-17); Calcium 9.7 mg/dl (8.4-10.2); Carbon Dioxide 25 mmol/L (22.0-30.0); Chloride 103 mmol/L (98-107); Creatinine,Serum 1.20 mg/dl (0.52-1.04); Estimated Glomerular Filt Rate 44 ml/min (>60); GFR (African American) 53 ML/MIN (>60); Globulin 2.2 g/dL (1.3-3.2); Glucose 140 mg/dl (74-100); Potassium 3.9 mmoL/L (3.5-5.1); Sodium 137 mmol/L (136-145); Total Protein,Serum 5.8 g/dl (6.3-8.2)
--- NOTE | 2024-10-24 09:25 | PC.NURSE ---
0925-bekah pelayo, tablet repair here to witness type and screen drawn from port
[2024-10-24] MEDS: ACETAMINOPHEN 325MG TAB 650 MG (13:45)
[2024-10-24] MEDS: 0.9 % SODIUM CHLORIDE 250 ML 25 ML IV (14:25)
[2024-10-24] MEDS: SODIUM CHLORIDE 0.9% 10ML FLUSH SYRINGE 10 ML IV (16:05)
== END 2024-10-24 23:59 | disposition home or self-care (01) ==
LOC: INF 08:50
PROVIDERS: PCP Family Medicine; Visit Provider Internal Medicine Medical Oncology
DX: C92.00 Acute myeloblastic leukemia, not having achieved remission (principal)
CPT/HCPCS: 36430; 80053; 85025; 86850; J1642; J7050; P9016

== ENCOUNTER 2024-10-27 08:53 | Outpatient (CLI) | payer MEDICARE, BC, SELFPAY ==
--- OUTSIDE RECORDS SUMMARY | 2024-09-19 07:30 | XMS_ITS | Encounter Summary ---
Author Organization [facility] Address [address] [place] [address] Care Team Providers Care Senior Software Development Manager Name Role Phone Jevon Vazquez MD Primary Care Provider [phone] Reason for Visit * Reason Comments Nurse Visit Encounter Details Date Type Department Care Team ([facility] Contact Info) Description 09/19/2024 7:30 AM EDT Clinical Support [facility] Hematology/BMT and Cellular Therapy Program [address] [phone] Social History Tobacco Use Types Packs/Day Years [...] Upcoming Encounters Date Type Department Care Team ([facility] Contact Info) Description 10/29/2024 1:00 PM EDT Clinical Support [facility] Hematology/BMT and Cellular Therapy Program [address] [phone] 10/29/2024 1:30 PM EDT Office Visit [facility] Hematology/BMT and Cellular Therapy Program [address] [phone] Zonia Hoffman, COLLAR SETTER 800 [facility] [address] [place] [address] 10/29/2024 3:00 PM EDT Appointment [facility] 2 [address] [place] [address] 10/30/2024 3:00 PM EDT Appointment [facility] 2 [address] [place] [address] 10/31/2024 3:00 PM EDT Appointment [facility] 2 [address] [place] [address] 11/01/2024 3:00 PM EDT Appointment [facility] 2 [address] [place] [address] 11/02/2024 3:00 PM EDT Appointment [facility] 1 [address] [place] [address] 2024 3:00 PM EDT Appointment [facility] 2 [address] [place] [address] 11/04/2024 3:00 PM EDT Appointment [facility] 2 [address] [place] [address] 11/27/2024 12:30 PM EDT Clinical Support [facility]ematology/BMT and Cellular Therapy Program [address] [address] 11/27/2024 1:00 PM EDT Office Visit [facility] Hematology/BMT [facility] Cellular Therapy Program [address] [address] Zonia Hoffman, COLLAR SETTER 800 [facility] [address] [place] [phone] documented as of this encounter Visit Diagnoses Not on filedocumented in this encounter Additional Health Concerns Assessment Noted Time A fall risk assessment has been complete d for the patient 09/19/2024 8:38 AM EDT A Body Mass Index follow-up plan has been documented for the patient 05/28/2024 1:52 PM EST documented as of this encounter Care Teams Senior Software Development Manager Relationship Specialty Start Date End Date Jevon Vazquez MD [address] [place] [address] #1 #1 [place] [address] PCP - General 03/23/22 documented as of this encounter
--- OUTSIDE RECORDS SUMMARY | 2024-09-19 09:30 | XMS_ITS | Encounter Summary ---
Author Organization Healthcare Address [address] 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) Social History Tobacco Use Types [...] Sign Reading Time Taken Comments Blood Pressure 120/58 09/19/2024 10:00 AM EDT Pulse 76 09/19/2024 10:00 AM EDT Temperature 36.5 C (97.7 F) 09/19/2024 10:00 AM EDT Respiratory Rate 16 09/19/2024 10:0 0 AM EDT Oxygen Saturation 100% 09/19/2024 10: 00 AM EDT Inhaled Oxygen Concentration - - Weight 55.7 kg (122 lb 12.7 oz) 09/19/2024 8:37 AM EDT Height - - Body Mass Index 21.07 09/19/2024 8:03 AM EDT documented in this encounter Miscellaneous Notes * Clinician Note - Doreen Savage, RN - 09/19/2024 9:30 AM EDT Patient informed of blood product transfusion process. Patient informed of infusion reaction symptoms. Patient requested for port to stay accessed when discharged from clinic to bone marrow biopsy in case she needed more labs or more plt's. Shelly Pollock RN notified of this and that her port is salinelocked. Patient instructed to go to the nearest emergency room or call 911 in the event that infusion reaction symptoms present themselves after leaving the facility today. Patient instructed to call their primary oncology office for follow up, if needed, or for any questions regarding treatment. Patient verbally reported understanding the information provided documented in this encounter Plan of Treatment Upcoming Encounters Date Type Department Care Team (Late st Contact Info) Description 10/29/2024 1:00 PM EDT Clinical Support [facility] [address] [place] [address] 10/29/2024 1:30 PM EDT Office Visit [facility] Hematology/BMT and Cellular Therapy Program [address] [address] Zonia Hoffman, LANDSCAPE CONTRACTOR 800 [facility] [address] [place] [address] 10/29/2024 3:00 PM EDT Appointment [facility] 2 [address] [place] [address] 10/30/2024 3:00 PM EDT Appointment [facility] 2 [address] [place] [address] 10/31/2024 3:00 PM EDT Appointment [facility] 2 [address] [place] [address] 11/01/2024 3:00 PM EDT Appointment [facility] 2 [address] [place] [address] 11/02/2024 3:00 PM EDT Appointment [facility] 1 [address] [place] [address] 2024 3:00 PM EDT Appointment [facility] 2 [address] [place] [address] 11/04/2024 3:00 PM EDT Appointment [facility] Infusion Clinic 2 [address] [place] [address] 11/27/2024 12:30 PM EDT Clinical Support [facility] Cellular Therapy [facility] [address] [place] [address] 11/27/2024 1:00 PM EDT Office Visit [facility] [address] [address] Zonia Hoffman, LANDSCAPE CONTRACTOR [address] [facility] [address] [place] [address] documented as of this encounter Procedures Procedure Name Priority Date/Time Associated Diagnosis Comments PLATELET COUNT, BLOOD STAT 09/19/2024 10:04 AM EDT PREPARE PLATELETS Routine 09/19/2024 9:0 8 AM EDT documented in this encounter Results * (ABNORMAL) Platelet count (09/19/2024 10:04 AM EDT) Platelet Count 61(L) 155 - 369 10*3/uL LAB HEMATOLOGY METHOD 09/19/2024 10:19 AM EDT [facility] Blood Blood sample taken from central line / Unknown (Port) Long-term Catheter / Unknown 09/19/2024 10:04 AM EDT 09/19/2024 10:18 AM EDT us New Mckinney MD LAB BLOOD ORDERABLES Final Re sult [facility] [address] [place] [address] * Transfuse platelets, Irradiated (09/19/2024 10:02 AM EDT) us Lexi Ferraro APRN BLOOD TRANSFUSION ORDERABL ES Final Result * Prepare Leukocyte Reduced Platelets (09/19/2024 9:08 AM EDT) Product Code [id number] CH BLOO D BANK Dispense Status Transfused BLOOD BANK Blood Expiration Date [id number] BLOOD BANK Unit Number [id number] CH B LOOD BANK Product Blood Type 6200 CH BLOOD BANK Blood Type A+ CH BLOOD BANK us Provider Not In System BLOOD BANK PRODUCT ORD ERABLES Final Result BLOOD BANK [address] [place] [address], documented in this encounter Visit Diagnoses Diagnosis 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)- Primary documented in this encounter Additional Health Concerns Assessment Noted Time A fall risk assessment has been complete d for the patient 09/19/2024 8:38 AM EDT A Body Mass Index follow-up plan has been documented for the patient 05/28/2024 1:52 PM EST documented as of this encounter Care Teams Waste Minimization Technician Relationship Specialty Start Date End Date Jevon Vazquez MD [address] [place] [address] [address]1 [address]1 [place] [address] PCP - General 03/23/22 documented as of this encounter
--- OUTSIDE RECORDS SUMMARY | 2024-09-19 12:00 | XMS_ITS | Encounter Summary ---
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) Procedures Leukemia/Lymphoma - Immunophenotyping by Flow Cytometry New Mckinney MD [address] [facility] [address] [address] Phone: tel: fax: Referral ID Status Reason Start Date Expiration Date V isits Requested Visits Authorized [id number] Authorized 09/11/2024 03/13/2026 1 1 Encounter Details Date Type Department Care Team (Latest Contact Info) Description 09/19/2024 12:00 PM EDT Procedure Visit [facility] Hematology/BMT and Cellular Therapy Program [address] [phone] Lexi Ferraro, RODDY [facility] [address] [phone] Acute myeloid leukemia not having [...] to surronding structures. Alternatives discussed: Delayed treatment [place] protocol: Procedure explained and questions answered to [...] Upcoming Encounters Date Type Department Care Team ([facility] st Contact Info) Description 10/29/2024 1:00 PM EDT Clinical Support [facility] Hematology/BMT and Cellular Therapy Program [address] [phone] 10/29/2024 1:30 PM EDT Office Visit [facility] Hematology/BMT and Cellular Therapy Program [address] [phone] Zonia Hoffman APRN [address] [facility] [address] [place] [phone] 10/29/2024 3:00 PM EDT Appointment [facility] Infusion [facility] [address] [place] [address] 10/30/2024 3:00 PM EDT Appointment [facility] Infusion [facility] [address] [place] [address] 10/31/2024 3:00 PM EDT Appointment [facility] Infusion [facility] [address] [place] [address] 11/01/2024 3:00 PM EDT Appointment [facility] [address] [place] [address] 11/02/2024 3:00 PM EDT Appointment [facility] 1 [address] [place] [address] 2024 3:00 PM EDT Appointment [facility] [address] [place] [address] 11/04/2024 3:00 PM EDT Appointment [facility] [address] [place] [address] 11/27/2024 12:30 PM EDT Clinical Support [facility] Hematology/BMT and Cellular Therapy Program [address] [place] [address] 11/27/2024 1:00 PM EDT Office Visit [facility] Hematology/BMT and Cellular Therapy Program [address] [phone] Zonia Hoffman, ASSISTANT SCIENTIST [address] [facility] [address] [place] [phone] documented as of this encounter Procedures Procedure [...] to surronding structures. Alternatives discussed: Delayed treatment [place] protocol: Procedure explained and questions answered to [...] at the site and an 11 gauge Benchshidi needle was inserted into the right posterior [...] Type Bone Marrow 09/24/2024 2:37 PM EDT [facility] Clinical Indication Myelodysplastic Syndrome 09/24/2024 2:37 PM EDT [facility] Specimen Adequacy Adequate 025 2:37 PM EDT [facility] Chromosome Analysis Result Giemsa-banded metaphase cells from unstimulated bone marrow cultures showed a 46,XX[20] chromosome pattern. 09/24/2024 2:37 PM EDT [facility] Interpretation Normal female chromosome analysis. No clonal abnormalities were detected at current resolution. Clinical correlation is recommended. # cells counted = 20 # cells analyzed = 20 # cells karyotyped = 2 Band resolution: 450-525 09/24/2024 2:37 PM EDT [facility] Pathologist Signature Reviewed by: Corey Tejada 09/24/2024 2:37 PM EDT [facility] Bone Marrow Non-blood Collection / Unknown 09/19/2024 7:29 AM EDT 09/19/2024 12:35 PM EDT us New Mckinney MD LAB CYTOGENETICS ORDERABLES F inal Result [facility] [address] [place] [address] * Myeloid Focused Panel, 50 gene (09/19/2024 7:29 AM EDT) Interpretation The following two (2) genes, TP53 and DNMT3A, with persistent variants have been detected in this bone marrow specimen. The variant, p.[id number], in TP53 gene and the variant, p.[id number], in the RUNX 1 gene are not detectable at current cutoff and coverage established in this lab. Gene: TP53 Mutation: c.814G>A; p.Faj298Jtk Allele Frequency (%): 37% (45% Dec 2023) ID: [id number] Gene: DNMT3A Mutation: c.1522delC; p.[id number] 3 Allele Frequency (%): 36% (48% Dec 2023) Additional Details on Mutation Identified: Gene Transcript Genome Chrom Coordinate RefVar DNMT3A [id number] Hg19 2 [id number] delC TP53 [id number] Hg19 17 [id number] G>A 09/29/2024 4:05 PM EDT [facility] Methodology The following 50 genes were [...] then sequenced on the Illumina NextSeq 2000 ([employer], [place]). A custom bioinformatics pipeline aligns [...] of hematologic malignancies. 09/29/2024 4:05 PM EDT [facility] Disclaimer This test was developed and its performance characteristics determined by the Clinical Molecular and Genomic Pathology Laboratory at the [facility]. It has not been cleared or [...] clinical laboratory testing. 09/29/2024 4:05 PM EDT [facility] Pathologist Signature Reviewed by: Corey Tejada 09/29/2024 4:05 PM EDT [facility] Bone Marrow Specimen from bone marrow obtained by aspiration / Unknown Non-blood Collection / Unknown 09/19/2024 7:29 AM EDT 09/19/2024 12:03 PM EDT us New Mckinney MD LAB MOLECULAR DIAGNOSTICS ORD ERABLES Final Result [facility] [address] [place] [address], * Leukemia/Lymphoma - Immunophenotyping by Flow Cytometry (09/19/2024 7:29 AM EDT) Clinical Indication AML 09/22/2024 10:29 AM EDT [facility] Flow Cytometry Interpretation A. BONE MARROW FOR FLOW CYTOMETRY: - MIXED MARROW ELEMENTS WITH NO EVIDENCE OF INCREASED BLASTS OR ABNORMAL LYMPHOID POPULATIONS, SEE COMMENT. 09/22/2024 10:29 AM EDT [facility] Comments CD45/side scatter analysis shows [...] surface light chains 09/22/2024 10:29 AM EDT [facility] Disclaimer This test was developed and its performance characteristics determined by the Immuno-Molecular Pathology Laboratory at the [facility]. It has not been cleared or [...] on the report. 09/22/2024 10:29 AM EDT [facility] Pathologist Signature Reviewed by: Lisandra Epstein MD 09/22/2024 10:29 AM EDT [facility] MRD Indicated Test Not Indicated 12/2024 10:29 AM EDT [facility] Bone Marrow Specimen from bone marrow obtained by aspiration / Unknown Non-blood Collection / Unknown 09/19/2024 7:29 AM EDT 09/19/2024 12:13 PM EDT us New Mckinney MD LAB FLOW CYTOMETRY ORDERABLES Final Result [facility] [address] [place] [address] * (ABNORMAL) CBC and differential (09/19/2024 7:29 AM EDT) WBC Count 2.70(L) 3.70 - 10.30 10*3/uL LAB HEMATOLOGY METHOD 09/19/2024 9:13 AM EDT [facility] RBC Count 1.86(L) 3.90 - 5.20 10*6/uL LAB HEMATOLOGY METHOD 09/19/2024 9:13 AM EDT [facility] HGB 7.1(L) 11.2 - 15.7 g/dL LAB HEMATOLOGY METHOD 09/19/2024 9:13 AM EDT [facility] HCT 21.5(L) 34.0 - 45.0 % LAB HEMATOLOGY METHOD 09/19/2024 9:13 AM EDT [facility] Platelet Count 14(LL) 155 - 369 10*3/uL LAB HEMATOLOGY METHOD 09/19/2024 9:13 AM EDT [facility] MCV 116(H) 79 - 98 fL LAB HEMATOLOGY METHOD 09/19/2024 9:13 AM EDT [facility] MCH 38.2(H) 26.0 - 32.0 pg LAB HEMATOLOGY METHOD 09/19/2024 9:13 AM EDT [facility] MCHC 33.0 30.7 - 35.5 g/dL LAB HEMATOLOGY METHOD 09/19/2024 9:13 AM EDT [facility] RDW 21.8(H) 11.5 - 14.5 % LAB HEMATOLOGY METHOD 09/19/2024 9:13 AM EDT [facility] MPV 13.5(H) 8.8 - 12.5 fL LAB HEMATOLOGY METHOD 09/19/2024 9:13 AM EDT [facility] nRBC 0.0 <=0.0 per 100 WBCs LAB HEMATOLOGY METHOD 09/19/2024 9:13 AM EDT [facility] Differential Type Automated LAB HEMATOLOGY METHOD 09/19/2024 9:13 AM EDT [facility] Neutrophils % 51 % LAB HEMATOLOGY METHOD 09/19/2024 9:13 AM EDT [facility] Lymphocytes % 41 % LAB HEMATOLOGY METHOD 09/19/2024 9:13 AM EDT [facility] Monocytes % 7 % LAB HEMATOLOGY METHOD 09/19/2024 9:13 AM EDT [facility] Eosinophils % 1 % LAB HEMATOLOGY METHOD 09/19/2024 9:13 AM EDT [facility] Basophils % 0 % LAB HEMATOLOGY METHOD 09/19/2024 9:13 AM EDT [facility] Immature Granulocytes % 0 % LAB HEMATOLOGY METHOD 09/19/2024 9:13 AM EDT [facility] Neutrophils Absolute 1.35(L) 1.60 - 6.10 10*3/uL LAB HEMATOLOGY METHOD 09/19/2024 9:13 AM EDT [facility] Lymphocytes Absolute 1.10(L) 1.20 - 3.90 10*3/uL LAB HEMATOLOGY METHOD 09/19/2024 9:13 AM EDT [facility] Monocytes Absolute 0.20(L) 0.30 - 0.90 10*3/uL LAB HEMATOLOGY METHOD 09/19/2024 9:13 AM EDT [facility] Eosinophils Absolute 0.03 0.00 - 0.50 10*3/uL LAB HEMATOLOGY METHOD 09/19/2024 9:13 AM EDT [facility] Basophils Absolute 0.01 0.00 - 0.10 10*3/uL LAB HEMATOLOGY METHOD 09/19/2024 9:13 AM EDT [facility] Immature Granulocytes Absolute 0.01 0.00 - 0.06 10*3/uL LAB HEMATOLOGY METHOD 09/19/2024 9:13 AM EDT [facility] Blood Blood sample taken from central line / Unknown (Port) Long-term Catheter / Unknown 09/19/2024 7:29 AM EDT 09/19/2024 8:08 AM EDT Narrative [facility] - 09/19/2024 9:13 AM EDT Therapeutic decision making should be based on absolute values, rather than percentages. New Mckinney MD LAB BLOOD ORDERABLES Final Re sult [facility] [address] [place] [address] * Bone marrow exam (09/19/2024 7:29 AM EDT) Case Report Bone Marrow Case: [id number] Authorizing Provider: New Mckinney MD Collected: 09/19/2024 0729 Ordering Location: [facility] Hematology/BMT and Received: 09/19/2024 [facility] Cellular Therapy Program Pathologist: Lisandra Epstein MD Specimens: A) - Bone Marrow Aspirate, right B) - Bone Marrow Biopsy, right C) - Peripheral Blood for Bone Marrow 5 3:15 PM EDT [facility] Cytogenetics Report, Addendum Chromosome Analysis Result Giemsa-banded metaphase cells from unstimulated bone marrow cultures showed a 46,XX[20] chromosome pattern. Interpretation Normal female chromosome analysis. No clonal abnormalities were detected at current resolution. Clinical correlation is recommended. 5 3:15 PM EDT [facility] Addendum electronically signed by Lisandra Epstein MD on 09/24/2024 at 1630 EDT Addendum Interpretation The following two (2) genes, TP53 and DNMT3A, with persistent variants have been detected in this bone marrow specimen. The variant, p.[id number], in TP53 gene and the variant, p.[id number], in the RUNX 1 gene are not detectable at current cutoff and coverage established in this lab. Gene: TP53 Mutation: c.814G>A; p.Viy804Qhi Allele Frequency (%): 37% (45% Dec 2023) ID: [id number] Gene: DNMT3A Mutation: c.1522delC; p.[id number] 43 Allele Frequency (%): 36% (48% Dec 2023) Additional Details on Mutation Identified: 3:15 PM EDT [facility] Addendum electronically signed by Lisandra Epstein MD on 09/30/2024 at 1515 EDT Final Diagnosis PERIPHERAL BLOOD AND BONE MARROW, RIGHT POSTERIOR ILIAC CREST, (ASPIRATE SMEAR, AND CORE BIOPSY): - HYPOCELLULAR BONE MARROW WITH MARKEDLY DECREASED MEGAKARYOCYTES; NO SIGNIFICANT DYSPOIESIS OR INCREASE IN BLASTS. 3:15 PM EDT [facility] at 1453 EDT Clinical Information AML 09/14 3:15 PM EDT [facility] CBC and Differential PERIPHERAL BLOOD: [...] blasts are not seen. 3:15 PM EDT [facility] Bone Marrow Differential BONE MARROW DIFFERENTIAL: 200 cells Normal Patient Neutrophils 15-50 34 Metamyelocytes 4-19 3 Myelocytes 1-18 10 Promyelocytes 1-8 1 Blasts 0-2 1 Monocytes 0-5 4 Erythroid 16-38 22 Lymphocytes 3-24 13 Eosinophils 0-6 8 Basophils 0-2 0 Plasma cells 0-4 4 Other 3:15 PM EDT [facility] Bone Marrow Aspirate and Biopsy [...] Bone trabeculae are unremarkable. 3:15 PM EDT [facility] Special and Immunohistochemical Stains Special Stain: A1-1 Vazquez-Giemsa A1-2 Vazquez-Giemsa A1-3 Vazquez-Giemsa C1-1 Vazquez-Giemsa IHC: B1-2 CD34 All controls show appropriate reactivity. All immunohistochemis try, in situ hybridization, and histochemical tests were developed by and are performed at the [facility], [address] [place] [address]. All tests reported here, except those addressing [...] negativity on decalcified specimens. 3:15 PM EDT [facility] Flow Cytometry Interpretation MIXED MARROW ELEMENTS WITH NO EVIDENCE OF INCREASED BLASTS OR ABNORMAL LYMPHOID POPULATIONS ([id number]). 3:15 PM EDT [facility] CYTOGENETICS/MOLECULA R INTERPRETATION Correlation with cytogenetic/molec ular analysis is suggested. 3:15 PM EDT [facility] Gross Description B. RIGHT A single specimen is received in formalin labeled bone marrow biopsy right posterior iliac crest and consists of 2 piece(s) of red/white tissue measuring 2.1/0.3 cm in length 0.2 cm in diameter. The specimen is submitted in to Histology for decalcification and routine processing. Cold Time: <1m 3:15 PM EDT [facility] Note: A resident was involved in the service. I attest I examined the relevant preparations for the specimens and confirmed the diagnosis or interpretation. 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
--- OUTSIDE RECORDS SUMMARY | 2024-09-30 09:00 | XMS_ITS | Encounter Summary ---
Author Organization Healthcare Address [address] [place] [address] Care Team Providers Care Mri Special Procedures Technologist Name Role Phone Jevon Vazquez MD Primary Care Provider [phone] Reason for Visit * Reason Comments Labs Only Encounter Details Date Type Department Care Team ([facility] Contact Info) Description 09/30/2024 9:00 AM EDT Clinical Support [facility] Hematology/BMT and Cellular Therapy Program [address] [phone] Jyoti Kemp Acute myeloid leukemia not having [...] ([facility] Contact Info) Description 10/29/2024 1:00 PM EDT Clinical Support [facility] Hematology/BMT and Cellular Therapy Program [address] [phone] 10/29/2024 1:30 PM EDT Office Visit [facility] Hematology/BMT and Cellular Therapy Program [address] [phone] Zonia Hoffman, POWER LINE INSTALLER AND REPAIRER 800 [facility] [address] [place] [phone] 10/29/2024 3:00 PM EDT Appointment [facility] 2 [address] [place] [address] 10/30/2024 3:00 PM EDT Appointment [facility] 2 [address] [place] [address] 10/31/2024 3:00 PM EDT Appointment [facility] 2 [address] [place] [address] 11/01/2024 3:00 PM EDT Appointment [facility] 2 [address] [place] [address] 11/02/2024 3:00 PM EDT Appointment [facility] 1 [address] [place] [address] 2024 3:00 PM EDT Appointment [facility] 2 [address] [place] [address] 11/04/2024 3:00 PM EDT Appointment [facility] Infusion Clinic 2 [address] [place] [address] 11/27/2024 12:30 PM EDT Clinical Support [facility] Hematology/BMT and Cellular Therapy Program [address] [place] [address] 11/27/2024 1:00 PM EDT Office Visit [facility] Hematology/BMT and Cellular Therapy Program [address] [place] [address] Zonia Hoffman, POWER LINE INSTALLER AND REPAIRER 800 [facility] [address] [place] [phone] documented as of this encounter Procedures Procedure [...] APRN LAB BLOOD ORDERABLES Final Res ult [facility] [address] [place] [address] * (ABNORMAL) CBC and Differential (09/30/2024 9:11 [...] AM EDT 09/30/2024 9:34 AM EDT Narrative [facility] - 09/30/2024 11:07 AM EDT Therapeutic decision making should be based on absolute values, rather than percentages. 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
--- OUTSIDE RECORDS SUMMARY | 2024-09-30 09:30 | XMS_ITS | Encounter Summary ---
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 st Contact Info) Description 09/30/2024 9:30 AM EDT Office Visit [facility] Hematology/BMT and Cellular Therapy Program [address] [phone] Zonia Hoffman, FLEET MECHANIC 800 [facility] [address] [place] [phone] Acute myeloid leukemia not having achieved remission [...] 73 y.o. female. Referring Physician: Zonia Hoffman, FLEET MECHANIC 800 [facility] [address] [phone] Primary Care Provider: Jevon Vazquez MD Chief [...] k/??L. 12/2023- seen by Dr. Manzano in [facility] for evaluation of anemia and lymphocytosis. B12/folate [...] interphase cells examined show a deletion of N9O117. Next generation sequencing: Abnormal: TP53 (c.814G>A; p.[id number]) frequency 45%, DMNT3A (c.1522delC; p.[id number]) frequency 48%, RUNX1 (c.336_338delGCC; p.[id number]) frequency 35% Azacitidine + Venetoclax Cycle 1: [...] - Continue local lab checks MWF at [facility] Allogenic transplant planning. 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 However, given her older age > 70, she would benefit from a geriatric BMT program and will make referrals should she be interested. Expected pancytopenia related to chemotherapy/AML. Check CBC x 3 times/week at [facility] Labs reviewed today, Hgb 7.7 , platelets [...] charts, reviewing results, and documenting. RODDY Cristina [facility] HEMATOLOGY/BMT AND CELLULAR THERAPY PROGRAM 800 [facility] [phone] 40 minutes was spent on this encounter; [...] Encounters Date Type Department Care Team ([facility] st Contact Info) Description 10/29/2024 1:00 PM EDT Clinical Support [facility] Hematology/BMT and Cellular Therapy Program 750 [facility], [address] [place] [address] [place] [address] 10/29/2024 1:30 PM EDT Office Visit [facility] Hematology/BMT and Cellular Therapy Program [address] [place] [address] Zonia Hoffman, FLEET MECHANIC 800 [facility] [address] [place] [phone] 10/29/2024 3:00 PM EDT Appointment [facility] [address] [place] [address] 10/30/2024 3:00 PM EDT Appointment [facility] 2 [address] [place] [address] 10/31/2024 3:00 PM EDT Appointment [facility] 2 [address] [place] [address] 11/01/2024 3:00 PM EDT Appointment [facility] 2 [address] [place] [address] 11/02/2024 3:00 PM EDT Appointment [facility] 1 [address] [place] [address] 2024 3:00 PM EDT Appointment [facility] 2 [address] [place] [address] 11/04/2024 3:00 PM EDT Appointment [facility] 2 [address] [place] [address] 11/27/2024 12:30 PM EDT Clinical Support [facility] Hematology/BMT and Cellular Therapy Program [address] [place] [address] 11/27/2024 1:00 PM EDT Office Visit [facility] Hematology/BMT and Cellular Therapy Program [address] [place] [address] Zonia Hoffman, FLEET MECHANIC 800 [facility] [address] [place] [phone] documented as of this encounter Results * (ABNORMAL) Comprehensive Metabolic Panel, Plasma (09/30/2024 9:11 AM EDT) Glucose, Plasma 135(H) 74 - 99 mg/dL 09/30/2024 10:20 AM EDT [facility] BUN, Plasma 21 8 - 23 mg/dL 09/30/2024 10:20 AM EDT [facility] Creatinine, Plasma 1.00 0.60 - 1.10 mg/dL 09/30/2024 10:20 AM EDT [facility] BUN/Creatinine Ratio 21 09/30/2024 10:20 AM EDT [facility] Sodium, Plasma 137 136 - 145 mmol/L 09/30/2024 10:20 AM EDT [facility] Potassium, Plasma 3.8 3.6 - 4.9 mmol/L 09/30/2024 10:20 AM EDT [facility] Chloride, Plasma 107 97 - 107 mmol/L 09/30/2024 10:20 AM EDT [facility] CO2, Plasma 22 22 - 29 mmol/L 09/30/2024 10:20 AM EDT [facility] Anion Gap 8 6 - 16 mmol/L 09/30/2024 10:20 AM EDT [facility] Total Calcium, Plasma 9.8 8.9 - 10.2 mg/dL 09/30/2024 10:20 AM EDT [facility] Total Protein 5.9(L) 6.3 - 7.9 g/dL 09/30/2024 10:20 AM EDT [facility] Albumin, Plasma 3.8 3.5 - 5.2 g/dL 09/30/2024 10:20 AM EDT [facility] AST, Plasma 28 10 - 35 U/L 09/30/2024 10:20 AM EDT [facility] ALT, Plasma 14 10 - 35 U/L 09/30/2024 10:20 AM EDT [facility] Alkaline Phosphatase, Plasma 34(L) 46 - 142 U/L 09/30/2024 10:20 AM EDT [facility] Total Bilirubin, Plasma 0.3 0.2 - 1.1 mg/dL 09/30/2024 10:20 AM EDT [facility] eGFRcr 59.6 mL/min/1.7 3m*2 09/30/2024 10:20 AM EDT [facility] Comment:Reported eGFRcr in m L/min/1.73m2 is based the CKD-EPI 2020 equation that does not use a race coefficient. Blood Venous blood specimen / Unknown (Port) Long-term Catheter / Unknown 09/30/2024 9:11 AM EDT 09/30/2024 9:50 AM EDT us Zonia Hoffman APRN LAB BLOOD ORDERABLES Final Res ult [facility] [address] [place] [address] * (ABNORMAL) CBC and Differential (09/30/2024 9:11 AM EDT) WBC Count 3.34(L) 3.70 - 10.30 10*3/uL LAB HEMATOLOGY METHOD 09/30/2024 11:07 AM EDT [facility] RBC Count 1.91(L) 3.90 - 5.20 10*6/uL LAB HEMATOLOGY METHOD 09/30/2024 11:07 AM EDT [facility] HGB 7.7(L) 11.2 - 15.7 g/dL LAB HEMATOLOGY METHOD 09/30/2024 11:07 AM EDT [facility] HCT 22.8(L) 34.0 - 45.0 % LAB HEMATOLOGY METHOD 09/30/2024 11:07 AM EDT [facility] Platelet Count 17(LL) 155 - 369 10*3/uL LAB HEMATOLOGY METHOD 09/30/2024 11:07 AM EDT [facility] MCV 119(H) 79 - 98 fL LAB HEMATOLOGY METHOD 09/30/2024 11:07 AM EDT [facility] MCH 40.3(H) 26.0 - 32.0 pg LAB HEMATOLOGY METHOD 09/30/2024 11:07 AM EDT [facility] MCHC 33.8 30.7 - 35.5 g/dL LAB HEMATOLOGY METHOD 09/30/2024 11:07 AM EDT [facility] RDW 18.7(H) 11.5 - 14.5 % LAB HEMATOLOGY METHOD 09/30/2024 11:07 AM EDT [facility] MPV 11.1 8.8 - 12.5 fL LAB HEMATOLOGY METHOD 09/30/2024 11:07 AM EDT [facility] nRBC 0.0 <=0.0 per 100 WBCs LAB HEMATOLOGY METHOD 09/30/2024 11:07 AM EDT [facility] Differential Type Automated LAB HEMATOLOGY METHOD 09/30/2024 11:07 AM EDT [facility] Neutrophils % 65 % LAB HEMATOLOGY METHOD 09/30/2024 11:07 AM EDT [facility] Lymphocytes % 26 % LAB HEMATOLOGY METHOD 09/30/2024 11:07 AM EDT [facility] Monocytes % 7 % LAB HEMATOLOGY METHOD 09/30/2024 11:07 AM EDT [facility] Eosinophils % 1 % LAB HEMATOLOGY METHOD 09/30/2024 11:07 AM EDT [facility] Basophils % 1 % LAB HEMATOLOGY METHOD 09/30/2024 11:07 AM EDT [facility] Immature Granulocytes % 0 % LAB HEMATOLOGY METHOD 09/30/2024 11:07 AM EDT [facility] Neutrophils Absolute 2.17 1.60 - 6.10 10*3/uL LAB HEMATOLOGY METHOD 09/30/2024 11:07 AM EDT [facility] Lymphocytes Absolute 0.87(L) 1.20 - 3.90 10*3/uL LAB HEMATOLOGY METHOD 09/30/2024 11:07 AM EDT [facility] Monocytes Absolute 0.24(L) 0.30 - 0.90 10*3/uL LAB HEMATOLOGY METHOD 09/30/2024 11:07 AM EDT [facility] Eosinophils Absolute 0.03 0.00 - 0.50 10*3/uL LAB HEMATOLOGY METHOD 09/30/2024 11:07 AM EDT [facility] Basophils Absolute 0.02 0.00 - 0.10 10*3/uL LAB HEMATOLOGY METHOD 09/30/2024 11:07 AM EDT [facility] Immature Granulocytes Absolute 0.01 0.00 - 0.06 10*3/uL LAB HEMATOLOGY METHOD 09/30/2024 11:07 AM EDT [facility] Blood Venous blood specimen / Unknown (Port) Long-term Catheter / Unknown 09/30/2024 9:11 AM EDT 09/30/2024 9:34 AM EDT Narrative [facility] - 09/30/2024 11:07 AM EDT Therapeutic decision making should be based on absolute values, rather than percentages. us Zonia Hoffman FLEET MECHANIC LAB BLOOD ORDERABLES Final Res ult [facility] [address] [place] [address] documented in this encounter Visit Diagnoses Diagnosis [...] documented as of this encounter Care Teams Cougar Hunter Relationship Specialty Start Date End Date Jevon Vazquez MD [address] [place] [address] #1 #1 [place] [id number] PCP - General 03/23/22 documented as of this encounter
--- OUTSIDE RECORDS SUMMARY | 2024-10-27 08:59 | XMS_ITS | Encounter Summary ---
Author Organization [facility] Address [address] [place] [address] Care Team Providers Care Accounting Instructor Name Role Phone Jevon Vazquez MD Primary Care Provider [phone] Encounter Details Date Type Department Care Team ([facility] Contact Info) Description 09/15/2024 Telephone [facility] Hematology/BMT and Cellular Therapy Program [address] [phone] Zonia Hoffman, COMMERCIAL AIRPLANE PILOT [facility] [address] [place] [phone] Social History Tobacco Use Types Packs/Day Years [...] ([facility] Contact Info) Description 10/29/2024 1:00 PM EDT Clinical Support [facility] Hematology/BMT and Cellular Therapy Program [address] [place] [phone] 10/29/2024 1:30 PM EDT Office Visit [facility] Hematology/BMT and Cellular Therapy Program [address] [phone] Zonia Hoffman, COMMERCIAL AIRPLANE PILOT [facility] [address] [place] [phone] 10/29/2024 3:00 PM EDT Appointment [facility] 2 [address] [place] [address] 10/30/2024 3:00 PM EDT Appointment [facility] 2 [address] [place] [address] 10/31/2024 3:00 PM EDT Appointment [facility] 2 [address] [place] [address] 11/01/2024 3:00 PM EDT Appointment [facility] 2 [address] [place] [address] 11/02/2024 3:00 PM EDT Appointment [facility] 1 [address] [place] [address] 2024 3:00 PM EDT Appointment [facility] 2 [address] [place] [address] 11/04/2024 3:00 PM EDT Appointment [facility] Infusion Clinic 2 [address] [place] [address] 11/27/2024 12:30 PM EDT Clinical Support [facility] Hematology/BMT and Cellular Therapy Program [address] [place] [address] 11/27/2024 1:00 PM EDT Office Visit [facility] Hematology/BMT and Cellular Therapy Program [address] [place] [address] Zonia Hoffman, COMMERCIAL AIRPLANE PILOT [facility] [address] [place] [phone] documented as of this encounter Visit Diagnoses Not on filedocumented in this encounter Additional Health Concerns Assessment Noted Time A fall risk assessment has been complete d for the patient 07/30/2024 8:29 AM EDT A Body Mass Index follow-up plan has been documented for the patient 05/28/2024 1:52 PM EST documented as of this encounter Care Teams Accounting Instructor Relationship Specialty Start Date End Date Jevon Vazquez MD [address] [place] [address] #1 #1 [place] [id number] PCP - General 03/23/22 documented as of this encounter
--- OUTSIDE RECORDS SUMMARY | 2024-10-27 08:59 | XMS_ITS | Encounter Summary ---
Author Organization Healthcare Address [address] [place] [address] Care Team Providers Care Pension Administrator Name Role Phone Jevon Vazquez MD Primary Care Provider [phone] Encounter Details Date Type Department Care Team (Late Contact Info) Description 09/30/2024 Telephone [facility] Hematology/BMT and Cellular Therapy Program [address] [place] [address] Zoraida Good, RN [facility] Social History Tobacco [...] Hematology/BMT and Cellular Therapy Program [address] [place] [address] 10/29/2024 1:30 PM EDT Office Visit [facility] Hematology/BMT and Cellular Therapy Program [address] [place] [address] Zonia Hoffman, MASTER COASTAL WATERS 800 [facility] [address] [address] 10/29/2024 3:00 PM EDT Appointment [facility] 2 [address] [place] [address] 10/30/2024 3:00 PM EDT Appointment [facility] 2 [address] [place] [address] 10/31/2024 3:00 PM EDT Appointment [facility] 2 [address] [place] [address] 11/01/2024 3:00 PM EDT Appointment [facility] 2 [address] [place] [address] 11/02/2024 3:00 PM EDT Appointment [facility] 1 [address] [place] [address] 2024 3:00 PM EDT Appointment [facility] 2 [address] [place] [address] 11/04/2024 3:00 PM EDT Appointment [facility] 2 [address] [place] [address] 11/27/2024 12:30 PM EDT Clinical Support [facility] Hematology/BMT and Cellular Therapy Program [address] [place] [address] 11/27/2024 1:00 PM EDT Office Visit [facility] Hematology/BMT and Cellular Therapy Program [address] [place] [address] Zonia Hoffman, MASTER COASTAL WATERS 800 [facility] [address] [address] documented as of this encounter Visit Diagnoses Not on filedocumented in this encounter Additional Health Concerns Assessment Noted Time A fall risk assessment has been complete d for the patient 09/30/2024 9:33 AM EDT A Body Mass Index follow-up plan has been documented for the patient 05/28/2024 1:52 PM EST documented as of this encounter Care Teams Pension Administrator Relationship Specialty Start Date End Date Jevon Vazquez MD [address] [place] [address] #1 #1 [place] [address] PCP - General 03/23/22 documented as of this encounter
--- OUTSIDE RECORDS SUMMARY | 2024-10-27 08:59 | XMS_ITS | Encounter Summary ---
Author Organization [facility] Address [address] [place] [address] Care Team Providers Care Fisher Trammel Net Name Role Phone Jevon Vazquez MD Primary Care Provider [phone] Reason for Visit * Reason Comments Med Refill Encounter Details Date Type Department Care Team ([facility] Contact Info) Description 01/30/2024 Refill [facility] Hematology/BMT and Cellular Therapy Program [address] [phone] New Mckinney MD 800 [facility] [address] [place] [phone] Social History Tobacco Use Types Packs/Day Years [...] Date Type Department Care Team ([facility] Contact Info) Description 10/29/2024 1:00 PM EDT Clinical Support [facility] Hematology/BMT and Cellular Therapy Program [address] [place] [address] 10/29/2024 1:30 PM EDT Office Visit [facility] Hematology/BMT and Cellular Therapy Program [address] [phone] Zonia Hoffman, TABLE GAMES DUAL RATE SUPERVISOR 800 [facility] [address] [place] [phone] 10/29/2024 3:00 PM EDT Appointment [facility] 2 [address] [place] [address] 10/30/2024 3:00 PM EDT Appointment [facility] 2 [address] [place] [address] 10/31/2024 3:00 PM EDT Appointment [facility] 2 [address] [place] [address] 11/01/2024 3:00 PM EDT Appointment [facility] 2 [address] [place] [address] 11/02/2024 3:00 PM EDT Appointment [facility] 1 [address] [place] [address] 2024 3:00 PM EDT Appointment [facility] 2 [address] [place] [address] 11/04/2024 3:00 PM EDT Appointment [facility] Clinic 2 [address] [place] [address] 11/27/2024 12:30 PM EDT Clinical Support PAV Hematology/BMT and Cellular Therapy Program [address] [place] [address] 11/27/2024 1:00 PM EDT Office Visit [facility]AV Hematology/BMT and Cellular Therapy Program [address] [place] [place] [address] Zonia Hoffman, TABLE GAMES DUAL RATE SUPERVISOR 800 [facility] [address] [place] [phone] documented as of this encounter Visit Diagnoses Not on filedocumented in this encounter Additional Health Concerns Assessment Noted Time A fall risk assessment has been complete d for the patient 01/11/2024 9:16 AM EDT A Body Mass Index follow-up plan has been documented for the patient 01/21/2024 6:16 AM EDT documented as of this encounter Care Teams Fisher Trammel Net Relationship Specialty Start Date End Date Jevon Vazquez MD [address] [place] [address] #1 #1 [place] [address] PCP - General 03/23/22 documented as of this encounter
--- OUTSIDE RECORDS SUMMARY | 2024-10-27 08:59 | XMS_ITS | Encounter Summary ---
Author Organization Healthcare Address [address] [place] [address] Care Team Providers Care Software Test Manager Name Role Phone Jevon Vazquez MD Primary Care Provider [phone] Encounter Details Date Type Department Care Team [...] Hematology/BMT and Cellular Therapy Program [address] [address] 10/29/2024 1:30 PM EDT Office Visit [facility] Hematology/BMT and Cellular Therapy Program [address] [address] Zonia Hoffman, STOCK BLENDER 800 [facility] [address] [place] [phone] 10/29/2024 3:00 PM EDT Appointment [facility] 2 [address] [place] [address] 10/30/2024 3:00 PM EDT Appointment [facility] 2 [address] [place] [address] 10/31/2024 3:00 PM EDT Appointment [facility] 2 [address] [place] [address] 11/01/2024 3:00 PM EDT Appointment [facility] 2 [address] [place] [address] 11/02/2024 3:00 PM EDT Appointment [facility] 1 [address] [place] [address] 2024 3:00 PM EDT Appointment [facility] 2 [address] [place] [address] 11/04/2024 3:00 PM EDT Appointment [facility] 2 [address] [place] [address] 11/27/2024 12:30 PM EDT Clinical Support [facility] Hematology/BMT and Cellular Therapy Program [address] [address] 11/27/2024 1:00 PM EDT Office Visit PAV Hematology/BMT and Cellular Therapy Program [address] [address] Zonia Hoffman, STOCK BLENDER 800 [facility] [address] [place] [phone] documented as of this encounter Visit Diagnoses Not on filedocumented in this encounter Additional Health Concerns Assessment Noted Time A fall risk assessment has been complete d for the patient 07/30/2024 8:29 AM EDT A Body Mass Index follow-up plan has been documented for the patient 05/28/2024 1:52 PM EST documented as of this encounter Care Teams Software Test Manager Relationship Specialty Start Date End Date Jevon Vazquez MD [address] [place] [address] #1 #1 Julien JOSEP [id number] PCP - General 03/23/22 documented as of this encounter
--- OUTSIDE RECORDS SUMMARY | 2024-10-27 08:59 | XMS_ITS | Encounter Summary ---
Author Organization Healthcare Address [address] [place] [address] Care Team Providers Care Isotope Technician Name Role Phone Jevon Vazquez MD Primary Care Provider [phone] Encounter Details Date Type Department Care Team [...] Hematology/BMT and Cellular Therapy Program [address] [address] 10/29/2024 1:30 PM EDT Office Visit [facility] Hematology/BMT and Cellular Therapy Program [address] [address] Zonia Hoffman, LEG ASSEMBLER 800 [facility] [address] [place] [phone] 10/29/2024 3:00 PM EDT Appointment [facility] 2 [address] [place] [address] 10/30/2024 3:00 PM EDT Appointment [facility] 2 [address] [place] [address] 10/31/2024 3:00 PM EDT Appointment [facility] 2 [address] [place] [address] 11/01/2024 3:00 PM EDT Appointment [facility] 2 [address] [place] [address] 11/02/2024 3:00 PM EDT Appointment [facility] 1 [address] [place] [address] 2024 3:00 PM EDT Appointment [facility] 2 [address] [place] [address] 11/04/2024 3:00 PM EDT Appointment [facility] 2 [address] [place] [address] 11/27/2024 12:30 PM EDT Clinical Support [facility] Hematology/BMT and Cellular Therapy Program [address] [address] 11/27/2024 1:00 PM EDT Office Visit [facility]AV Hematology/BMT and Cellular Therapy Program [address] [address] Zonia Hoffman, LEG ASSEMBLER 800 [facility] [address] [place] [phone] documented as of this encounter Visit Diagnoses Not on filedocumented in this encounter Additional Health Concerns Assessment Noted Time A fall risk assessment has been complete d for the patient 09/30/2024 9:33 AM EDT A Body Mass Index follow-up plan has been documented for the patient 05/28/2024 1:52 PM EST documented as of this encounter Care Teams Isotope Technician Relationship Specialty Start Date End Date Jevon Vazquez MD [address] [place] [address] #1 #1 Julien JOSEP [address] PCP - General 03/23/22 documented as of this encounter
--- OUTSIDE RECORDS SUMMARY | 2024-10-27 08:59 | XMS_ITS | Encounter Summary ---
Author Organization Healthcare Address [address] [place] [address] Care Team Providers Care Autistic Teacher Name Role Phone Jevon Vazquez MD [...] Hematology/BMT and Cellular Therapy Program [address] [address] 10/29/2024 1:30 PM EDT Office Visit [facility] Hematology/BMT and Cellular Therapy Program [address] [address] Zonia Hoffman, COMPLIANCE MONITOR 800 [facility] [address] [place] [phone] 10/29/2024 3:00 PM EDT Appointment [facility] 2 [address] [place] [address] 10/30/2024 3:00 PM EDT Appointment [facility] 2 [address] [place] [address] 10/31/2024 3:00 PM EDT Appointment [facility] 2 [address] [place] [address] 11/01/2024 3:00 PM EDT Appointment [facility] 2 [address] [place] [address] 11/02/2024 3:00 PM EDT Appointment [facility] 1 [address] [place] [address] 2024 3:00 PM EDT Appointment [facility] 2 [address] [place] [address] 11/04/2024 3:00 PM EDT Appointment [facility] 2 [address] [place] [address] 11/27/2024 12:30 PM EDT Clinical Support [facility] Hematology/BMT and Cellular Therapy Program [address] [address] 11/27/2024 1:00 PM EDT Office Visit [facility] Hematology/BMT and Cellular Therapy Program [address] [address] Zonia Hoffman, COMPLIANCE MONITOR 800 [facility] [address] [place] [phone] documented as of this encounter Visit Diagnoses Not on filedocumented in this encounter Additional Health Concerns Assessment Noted Time A fall risk assessment has been complete d for the patient 07/30/2024 8:29 AM EDT A Body Mass Index follow-up plan has been documented for the patient 05/28/2024 1:52 PM EST documented as of this encounter Care Teams Autistic Teacher Relationship Specialty Start Date End Date Jevon Vazquez MD [address] [place] [address] #1 #1 Julien JOSEP [address] PCP - General 03/23/22 documented as of this encounter
--- OUTSIDE RECORDS SUMMARY | 2024-10-27 08:59 | XMS_ITS | Encounter Summary ---
Author Organization Healthcare Address [address] [place] [address] Care Team Providers Care Reordering Clerk Name Role Phone Jevon Vazquez MD Primary Care Provider [phone] Encounter Details Date Type Department Care Team [...] Hematology/BMT and Cellular Therapy Program [address] [address] 10/29/2024 1:30 PM EDT Office Visit [facility] Hematology/BMT and Cellular Therapy Program [address] [address] Zonia Hoffman, BOBBIN DUMPER 800 [facility] [address] [place] [address] 10/29/2024 3:00 PM EDT Appointment [facility] [address] [place] [address] 10/30/2024 3:00 PM EDT Appointment [facility] [address] [place] [address] 10/31/2024 3:00 PM EDT Appointment [facility] [address] [place] [address] 11/01/2024 3:00 PM EDT Appointment [facility] 2 [address] [place] [address] 11/02/2024 3:00 PM EDT Appointment [facility] 1 [address] [place] [address] 2024 3:00 PM EDT Appointment [facility] [address] [place] [address] 11/04/2024 3:00 PM EDT Appointment [facility] 2 [address] [place] [address] 11/27/2024 12:30 PM EDT Clinical Support [facility] Hematology/BMT and Cellular Therapy Program [address] [address] 11/27/2024 1:00 PM EDT Office Visit [facility] Hematology/BMT and Cellular Therapy Program [address] [address] Zonia Hoffman, BOBBIN DUMPER 800 [facility] [address] [place] [phone] documented as of this encounter Visit Diagnoses Not on filedocumented in this encounter Additional Health Concerns Assessment Noted Time A fall risk assessment has been complete d for the patient 07/30/2024 8:29 AM EDT A Body Mass Index follow-up plan has been documented for the patient 05/28/2024 1:52 PM EST documented as of this encounter Care Teams Reordering Clerk Relationship Specialty Start Date End Date Jevon Vazquez MD [address] [place] [address] #1 #1 Julien JOSEP [id number] PCP - General 03/23/22 documented as of this encounter
--- OUTSIDE RECORDS SUMMARY | 2024-10-27 08:59 | XMS_ITS | Encounter Summary ---
Author Organization Healthcare Address [address] [place] [address] Care Team Providers Care Prefabricated Houses Trimmer Name Role Phone Jevon Vazquez MD Primary Care Provider [phone] Encounter Details Date Type Department Care Team [...] Hematology/BMT and Cellular Therapy Program [address] [address] 10/29/2024 1:30 PM EDT Office Visit [facility] Hematology/BMT and Cellular Therapy Program [address] [address] Zonia Hoffman, THREAD CHECKER 800 [facility] [address] [place] [phone] 10/29/2024 3:00 PM EDT Appointment [facility] [address] [place] [address] 10/30/2024 3:00 PM EDT Appointment [facility] 2 [address] [place] [address] 10/31/2024 3:00 PM EDT Appointment [facility] 2 [address] [place] [address] 11/01/2024 3:00 PM EDT Appointment [facility] 2 [address] [place] [address] 11/02/2024 3:00 PM EDT Appointment [facility] 1 [address] [place] [address] 2024 3:00 PM EDT Appointment [facility] 2 [address] [place] [address] 11/04/2024 3:00 PM EDT Appointment [facility] 2 [address] [place] [address] 11/27/2024 12:30 PM EDT Clinical Support [facility] Hematology/BMT and Cellular Therapy Program [address] [address] 11/27/2024 1:00 PM EDT Office Visit [facility] Hematology/BMT and Cellular Therapy Program [address] [address] Zonia Hoffman, THREAD CHECKER 800 [facility] [address] [place] [phone] documented as of this encounter Visit Diagnoses Not on filedocumented in this encounter Additional Health Concerns Assessment Noted Time A fall risk assessment has been complete d for the patient 07/30/2024 8:29 AM EDT A Body Mass Index follow-up plan has been documented for the patient 05/28/2024 1:52 PM EST documented as of this encounter Care Teams Prefabricated Houses Trimmer Relationship Specialty Start Date End Date Jevon Vazquez MD [address] [place] [address] #1 #1 Julien JOSEP [id number] PCP - General 03/23/22 documented as of this encounter
--- OUTSIDE RECORDS SUMMARY | 2024-10-27 08:59 | XMS_ITS | Encounter Summary ---
Author Organization Healthcare Address [address] [place] [address] Care Team Providers Care Crop Farm Helper Name Role Phone Jevon Vazquez MD [...] Hematology/BMT and Cellular Therapy Program [address] [address] 10/29/2024 1:30 PM EDT Office Visit [facility] Hematology/BMT and Cellular Therapy Program [address] [address] Zonia Hoffman, FORK TRUCK OPERATOR 800 [facility] [address] [place] [phone] 10/29/2024 3:00 PM EDT Appointment [facility] 2 [address] [place] [address] 10/30/2024 3:00 PM EDT Appointment [facility] 2 [address] [place] [address] 10/31/2024 3:00 PM EDT Appointment [facility] 2 [address] [place] [address] 11/01/2024 3:00 PM EDT Appointment [facility] 2 [address] [place] [address] 11/02/2024 3:00 PM EDT Appointment [facility] 1 [address] [place] [address] 2024 3:00 PM EDT Appointment [facility] 2 [address] [place] [address] 11/04/2024 3:00 PM EDT Appointment [facility] 2 [address] [place] [address] 11/27/2024 12:30 PM EDT Clinical Support [facility] Hematology/BMT and Cellular Therapy Program [address] [address] 11/27/2024 1:00 PM EDT Office Visit [facility] Hematology/BMT and Cellular Therapy Program [address] [address] Zonia Hoffman, FORK TRUCK OPERATOR 800 [facility] [address] [place] [phone] documented as of this encounter Visit Diagnoses Not on filedocumented in this encounter Additional Health Concerns Assessment Noted Time A fall risk assessment has been complete d for the patient 07/30/2024 8:29 AM EDT A Body Mass Index follow-up plan has been documented for the patient 05/28/2024 1:52 PM EST documented as of this encounter Care Teams Crop Farm Helper Relationship Specialty Start Date End Date Jevon Vazquez MD [address] [place] [address] #1 #1 Julien JOSEP [id number] PCP - General 03/23/22 documented as of this encounter
--- OUTSIDE RECORDS SUMMARY | 2024-10-27 08:59 | XMS_ITS | Encounter Summary ---
Author Organization [facility] Address [address] [place] [address] Care Team Providers Care A Auxiliary Name Role Phone Jevon Vazquez MD Primary Care Provider [phone] Reason for Visit * Reason Comments Med Refill Encounter Details Date Type Department Care Team ([facility] Contact Info) Description 10/14/2024 Refill [facility] Hematology/BMT and Cellular Therapy Program [address] [phone] New Mckinney MD [address] [facility] [address] [place] [phone] Social History Tobacco Use Types Packs/Day Years [...] Hematology/BMT and Cellular Therapy Program [address] [phone] 10/29/2024 1:30 PM EDT Office Visit [facility] Hematology/BMT and Cellular Therapy Program [address] [address] Zonia Hoffman, MIXING AND MOLDING MACHINE OPERATOR [address] [facility] [address] [place] [phone] 10/29/2024 3:00 PM EDT Appointment [facility] 2 [address] [place] [address] 10/30/2024 3:00 PM EDT Appointment [facility] 2 [address] [place] [address] 10/31/2024 3:00 PM EDT Appointment [facility] 2 [address] [place] [address] 11/01/2024 3:00 PM EDT Appointment [facility] 2 [address] [place] [address] 11/02/2024 3:00 PM EDT Appointment [facility] 1 [address] [place] [address] 2024 3:00 PM EDT Appointment [facility] 2 [address] [place] [address] 11/04/2024 3:00 PM EDT Appointment [facility] 2 [address] [place] [address] 11/27/2024 12:30 PM EDT Clinical Support [facility] Hematology/BMT and Cellular Therapy Program [address] [place] [address] 11/27/2024 1:00 PM EDT Office Visit [facility] Hematology/BMT and Cellular Therapy Program [address] [place] [address] Zonia Hoffman, MIXING AND MOLDING MACHINE OPERATOR [address] [facility] [address] [place] [phone] documented as of this encounter Visit Diagnoses Not on filedocumented in this encounter Additional Health Concerns Assessment Noted Time A fall risk assessment has been complete d for the patient 09/30/2024 9:33 AM EDT A Body Mass Index follow-up plan has been documented for the patient 05/28/2024 1:52 PM EST documented as of this encounter Care Teams A Auxiliary Relationship Specialty Start Date End Date Jevon Vazquez MD [address] [place] [address] #1 #1 JOSEP [place] [address] PCP - General 03/23/22 documented as of this encounter
--- OUTSIDE RECORDS SUMMARY | 2024-10-27 08:59 | XMS_ITS | Encounter Summary ---
Author Organization Healthcare Address [address] [place] [address] Care Team Providers Care Nurse Reviewer Name Role Phone Jevon Vazquez MD Primary Care Provider [phone] Encounter Details Date Type Department Care Team [...] Hematology/BMT and Cellular Therapy Program [address] [address] 10/29/2024 1:30 PM EDT Office Visit [facility] Hematology/BMT and Cellular Therapy Program [address] [address] Zonia Hoffman, LIBRARY CLERK TALKING BOOKS 800 [facility] [address] [place] [phone] 10/29/2024 3:00 PM EDT Appointment [facility] 2 [address] [place] [address] 10/30/2024 3:00 PM EDT Appointment [facility] 2 [address] [place] [address] 10/31/2024 3:00 PM EDT Appointment [facility] 2 [address] [place] [address] 11/01/2024 3:00 PM EDT Appointment [facility] 2 [address] [place] [address] 11/02/2024 3:00 PM EDT Appointment [facility] 1 [address] [place] [address] 2024 3:00 PM EDT Appointment [facility] 2 [address] [place] [address] 11/04/2024 3:00 PM EDT Appointment [facility] 2 [address] [place] [address] 11/27/2024 12:30 PM EDT Clinical Support [facility] Hematology/BMT and Cellular Therapy Program [address] [address] 11/27/2024 1:00 PM EDT Office Visit [facility] Hematology/BMT and Cellular Therapy Program [address] [address] Zonia Hoffman, LIBRARY CLERK TALKING BOOKS 800 [facility] [address] [place] [phone] documented as of this encounter Visit Diagnoses Not on filedocumented in this encounter Additional Health Concerns Assessment Noted Time A fall risk assessment has been complete d for the patient 09/19/2024 8:38 AM EDT A Body Mass Index follow-up plan has been documented for the patient 05/28/2024 1:52 PM EST documented as of this encounter Care Teams Nurse Reviewer Relationship Specialty Start Date End Date Jevon Vazquez MD [address] [place] [address] #1 #1 Julien JOSEP [id number] PCP - General 03/23/22 documented as of this encounter
--- OUTSIDE RECORDS SUMMARY | 2024-10-27 08:59 | XMS_ITS | Encounter Summary ---
Author Organization Healthcare Address [address] [place] [address] Care Team Providers Care Mandarin Chinese Teacher Name Role Phone Jevon Vazquez MD Primary Care Provider [phone] Encounter Details Date Type Department Care Team [...] Hematology/BMT and Cellular Therapy Program [address] [address] 10/29/2024 1:30 PM EDT Office Visit [facility] Hematology/BMT and Cellular Therapy Program [address] [address] Zonia Hoffman, CELERY CUTTER 800 [facility] [address] [place] [phone] 10/29/2024 3:00 PM EDT Appointment [facility] 2 [address] [place] [address] 10/30/2024 3:00 PM EDT Appointment [facility] 2 [address] [place] [address] 10/31/2024 3:00 PM EDT Appointment [facility] 2 [address] [place] [address] 11/01/2024 3:00 PM EDT Appointment [facility] 2 [address] [place] [address] 11/02/2024 3:00 PM EDT Appointment [facility] 1 [address] [place] [address] 2024 3:00 PM EDT Appointment [facility] 2 [address] [place] [address] 11/04/2024 3:00 PM EDT Appointment [facility] 2 [address] [place] [address] 11/27/2024 12:30 PM EDT Clinical Support [facility] Hematology/BMT and Cellular Therapy Program [address] [address] 11/27/2024 1:00 PM EDT Office Visit [facility] Hematology/BMT and Cellular Therapy Program [address] [phone] Zonia Hoffman, CELERY CUTTER 800 [facility] [address] [place] [phone] documented as of this encounter Visit Diagnoses Not on filedocumented in this encounter Additional Health Concerns Assessment Noted Time A fall risk assessment has been complete d for the patient 09/30/2024 9:33 AM EDT A Body Mass Index follow-up plan has been documented for the patient 05/28/2024 1:52 PM EST documented as of this encounter Care Teams Mandarin Chinese Teacher Relationship Specialty Start Date End Date Jevon Vazquez MD [address] [place] [address] #1 #1 Julien JOSEP [id number] PCP - General 03/23/22 documented as of this encounter
--- OUTSIDE RECORDS SUMMARY | 2024-10-27 08:59 | XMS_ITS | Encounter Summary ---
Author Organization Healthcare Address [address] [place] [address] Care Team Providers Care Clinical Nurse Occupational Medicine Name Role Phone Jevon Vazquez MD Primary Care Provider [phone] Encounter Details Date Type Department Care Team [...] Hematology/BMT and Cellular Therapy Program [address] [address] 10/29/2024 1:30 PM EDT Office Visit [facility] Hematology/BMT and Cellular Therapy Program [address] [address] Zonia Hoffman, CUSTODIAL OPERATIONS MANAGER 800 [facility] [address] [place] [phone] 10/29/2024 3:00 PM EDT Appointment [facility] 2 [address] [place] [address] 10/30/2024 3:00 PM EDT Appointment [facility] 2 [address] [place] [address] 10/31/2024 3:00 PM EDT Appointment [facility] 2 [address] [place] [address] 11/01/2024 3:00 PM EDT Appointment [facility] 2 [address] [place] [address] 11/02/2024 3:00 PM EDT Appointment [facility] 1 [address] [place] [address] 2024 3:00 PM EDT Appointment [facility] 2 [address] [place] [address] 11/04/2024 3:00 PM EDT Appointment [facility] 2 [address] [place] [address] 11/27/2024 12:30 PM EDT Clinical Support [facility] Hematology/BMT and Cellular Therapy Program [address] [address] 11/27/2024 1:00 PM EDT Office Visit [facility] Hematology/BMT and Cellular Therapy Program [address] [address] Zonia Hoffman, CUSTODIAL OPERATIONS MANAGER 800 [facility] [address] [place] [phone] documented as of this encounter Visit Diagnoses Not on filedocumented in this encounter Additional Health Concerns Assessment Noted Time A fall risk assessment has been complete d for the patient 07/30/2024 8:29 AM EDT A Body Mass Index follow-up plan has been documented for the patient 05/28/2024 1:52 PM EST documented as of this encounter Care Teams Clinical Nurse Occupational Medicine Relationship Specialty Start Date End Date Jevon Vazquez MD [address] [place] [address] #1 #1 Julien JOSEP [id number] PCP - General 03/23/22 documented as of this encounter
--- OUTSIDE RECORDS SUMMARY | 2024-10-27 08:59 | XMS_ITS | Encounter Summary ---
Author Organization Healthcare Address [address] [place] [address] Care Team Providers Care Brake Coupler Dinkey Name Role Phone Jevon Vazquez MD Primary Care Provider [phone] Encounter Details Date Type Department Care Team [...] Hematology/BMT and Cellular Therapy Program [address] [address] 10/29/2024 1:30 PM EDT Office Visit [facility] Hematology/BMT and Cellular Therapy Program [address] [address] Zonia Hoffman, FLANGE MACHINE OPERATOR 800 [facility] [address] [place] [address] 10/29/2024 3:00 PM EDT Appointment [facility] 2 [address] [place] [address] 10/30/2024 3:00 PM EDT Appointment [facility] 2 [address] [place] [address] 10/31/2024 3:00 PM EDT Appointment [facility] 2 [address] [place] [address] 11/01/2024 3:00 PM EDT Appointment [facility] 2 [address] [place] [address] 11/02/2024 3:00 PM EDT Appointment [facility] 1 [address] [place] [address] 2024 3:00 PM EDT Appointment [facility] 2 [address] [place] [address] 11/04/2024 3:00 PM EDT Appointment [facility] 2 [address] [place] [address] 11/27/2024 12:30 PM EDT Clinical Support [facility] Hematology/BMT and Cellular Therapy Program [address] [address] 11/27/2024 1:00 PM EDT Office Visit [facility] Hematology/BMT and Cellular Therapy Program [address] [address] Zonia Hoffman, FLANGE MACHINE OPERATOR 800 [facility] [address] [place] [phone] documented as of this encounter Visit Diagnoses Not on filedocumented in this encounter Additional Health Concerns Assessment Noted Time A fall risk assessment has been complete d for the patient 09/30/2024 9:33 AM EDT A Body Mass Index follow-up plan has been documented for the patient 05/28/2024 1:52 PM EST documented as of this encounter Care Teams Brake Coupler Dinkey Relationship Specialty Start Date End Date Jevon Vazquez MD [address] [place] [address] #1 #1 Julien JOSEP [id number] PCP - General 03/23/22 documented as of this encounter
--- OUTSIDE RECORDS SUMMARY | 2024-10-27 08:59 | XMS_ITS | Encounter Summary ---
Author Organization [facility] Address [address] [place] [address] Care Team Providers Care Profile Trimmer Name Role Phone Jevon Vazquez MD Primary Care Provider [phone] Reason for Visit * Reason Comments Med Refill Encounter Details Date Type Department Care Team ([facility] Contact Info) Description 09/12/2024 Refill [facility] Hematology/BMT and Cellular Therapy Program [address] [phone] New Mckinney MD 800 [facility] [address] [place] [phone] Social History Tobacco Use Types Packs/Day Years [...] Upcoming Encounters Date Type Department Care Team ([facility] Contact Info) Description 10/29/2024 1:00 PM EDT Clinical Support [facility] Hematology/BMT and Cellular Therapy Program [address] [phone] 10/29/2024 1:30 PM EDT Office Visit [facility] Hematology/BMT and Cellular Therapy Program [address] [address] Zonia Hoffman, SUPPORT WORKER 800 [facility] [address] [place] [phone] 10/29/2024 3:00 PM EDT Appointment [facility] 2 [address] [place] [address] 10/30/2024 3:00 PM EDT Appointment [facility] 2 [address] [place] [address] 10/31/2024 3:00 PM EDT Appointment [facility] 2 [address] [place] [address] 11/01/2024 3:00 PM EDT Appointment [facility] 2 [address] [place] [address] 11/02/2024 3:00 PM EDT Appointment [facility] 1 [address] [place] [address] 2024 3:00 PM EDT Appointment [facility] 2 [address] [place] [address] 11/04/2024 3:00 PM EDT Appointment [facility] 2 [address] [place] [address] 11/27/2024 12:30 PM EDT Clinical Support [facility] Hematology/BMT and Cellular Therapy Program [address] [place] [address] 11/27/2024 1:00 PM EDT Office Visit [facility] Hematology/BMT and Cellular Therapy Program [address] [place] [address] Zonia Hoffman, SUPPORT WORKER 800 [facility] [address] [place] [phone] documented as of this encounter Visit Diagnoses Not on filedocumented in this encounter Additional Health Concerns Assessment Noted Time A fall risk assessment has been complete d for the patient 07/30/2024 8:29 AM EDT A Body Mass Index follow-up plan has been documented for the patient 05/28/2024 1:52 PM EST documented as of this encounter Care Teams Profile Trimmer Relationship Specialty Start Date End Date Jevon Vazquez MD [address] [place] [address] #1 #1 JOSEP [place] [address] PCP - General 03/23/22 documented as of this encounter
--- OUTSIDE RECORDS SUMMARY | 2024-10-27 08:59 | XMS_ITS | Encounter Summary ---
Author Organization Healthcare Address [address] [place] [address] Care Team Providers Care Payroll Administrator Name Role Phone Jevon Vazquez MD Primary Care Provider [phone] Encounter Details Date Type Department Care Team [...] Hematology/BMT and Cellular Therapy Program [address] [address] 10/29/2024 1:30 PM EDT Office Visit [facility] Hematology/BMT and Cellular Therapy Program [address] [address] Zonia Hoffman, UTILITY PERSON 800 [facility] [address] [place] [phone] 10/29/2024 3:00 PM EDT Appointment [facility] 2 [address] [place] [address] 10/30/2024 3:00 PM EDT Appointment [facility] 2 [address] [place] [address] 10/31/2024 3:00 PM EDT Appointment [facility] 2 [address] [place] [address] 11/01/2024 3:00 PM EDT Appointment [facility] 2 [address] [place] [address] 11/02/2024 3:00 PM EDT Appointment [facility] 1 [address] [place] [address] 2024 3:00 PM EDT Appointment [facility] 2 [address] [place] [address] 11/04/2024 3:00 PM EDT Appointment [facility] 2 [address] [place] [address] 11/27/2024 12:30 PM EDT Clinical Support [facility] Hematology/BMT and Cellular Therapy Program [address] [address] 11/27/2024 1:00 PM EDT Office Visit [facility] Hematology/BMT and Cellular Therapy Program [address] [address] Zonia Hoffman, UTILITY PERSON 800 [facility] [address] [place] [phone] documented as of this encounter Visit Diagnoses Not on filedocumented in this encounter Additional Health Concerns Assessment Noted Time A fall risk assessment has been complete d for the patient 09/19/2024 8:38 AM EDT A Body Mass Index follow-up plan has been documented for the patient 05/28/2024 1:52 PM EST documented as of this encounter Care Teams Payroll Administrator Relationship Specialty Start Date End Date Jeovn Vazquez MD [address] [place] [address] #1 #1 Julien JOSEP [address] PCP - General 03/23/22 documented as of this encounter
--- OUTSIDE RECORDS SUMMARY | 2024-10-27 08:59 | XMS_ITS | Encounter Summary ---
Author Organization [facility] Address [address] [place] [address] Care Team Providers Care Senior Account Director Name Role Phone Jevon Vazquez MD Primary Care Provider [phone] Encounter Details Date Type Department Care Team ([facility] Contact Info) Description 09/19/2024 Telephone [facility] CC Hematology/BMT and Cellular Therapy Program [address] [place] [address] Romana Richmond RN [facility] Social History Tobacco Use [...] Upcoming Encounters Date Type Department Care Team ([facility] Contact Info) Description 10/29/2024 1:00 PM EDT Clinical Support P[facility] CC Hematology/BMT and Cellular Therapy Program [address] [place] [address] 10/29/2024 1:30 PM EDT Office Visit PAV Hematology/BMT and Cellular Therapy Program [address], [facility] [place] [address] Zonia Hoffman, COMMUNITY OUTREACH DIRECTOR 800 [facility] [address] [place] [phone] 10/29/2024 3:00 PM EDT Appointment [facility] 2 [address] [place] [address] 10/30/2024 3:00 PM EDT Appointment [facility] 2 [address] [place] [address] 10/31/2024 3:00 PM EDT Appointment [facility] 2 [address] [place] [address] 11/01/2024 3:00 PM EDT Appointment [facility] 2 [address] [place] [address] 11/02/2024 3:00 PM EDT Appointment [facility] 1 [address] [place] [address] 2024 3:00 PM EDT Appointment [facility] 2 [address] [place] [address] 11/04/2024 3:00 PM EDT Appointment [facility] 2 [address] [place] [address] 11/27/2024 12:30 PM EDT Clinical Support PAV Hematology/BMT and Cellular Therapy Program [address] [place] [address] 11/27/2024 1:00 PM EDT Office Visit PAV Hematology/BMT and Cellular Therapy Program [address] , [facility] [place] [address] Zonia Hoffman, COMMUNITY OUTREACH DIRECTOR 800 [facility] [address] [place] [phone] documented as of this encounter Visit Diagnoses Not on filedocumented in this encounter Additional Health Concerns Assessment Noted Time A fall risk assessment has been complete d for the patient 09/19/2024 8:38 AM EDT A Body Mass Index follow-up plan has been documented for the patient 05/28/2024 1:52 PM EST documented as of this encounter Care Teams Senior Account Director Relationship Specialty Start Date End Date Jevon Vazquez MD [address] [place] [address] #1 #1 [place] [address] PCP - General 03/23/22 documented as of this encounter
--- OUTSIDE RECORDS SUMMARY | 2024-10-27 08:59 | XMS_ITS | Encounter Summary ---
Author Organization Healthcare Address [address] [place] [address] Care Team Providers Care Regional Marketing Manager Name Role Phone Jevon Vazquez MD Primary Care Provider [phone] Encounter Details Date Type Department Care Team [...] Hematology/BMT and Cellular Therapy Program [address] [address] 10/29/2024 1:30 PM EDT Office Visit [facility] Hematology/BMT and Cellular Therapy Program [address] [address] Zonia Hoffman, HOSPICE RN 800 [facility] [address] [place] [phone] 10/29/2024 3:00 PM EDT Appointment [facility] 2 [address] [place] [address] 10/30/2024 3:00 PM EDT Appointment [facility] 2 [address] [place] [address] 10/31/2024 3:00 PM EDT Appointment [facility] 2 [address] [place] [address] 11/01/2024 3:00 PM EDT Appointment [facility] 2 [address] [place] [address] 11/02/2024 3:00 PM EDT Appointment [facility] 1 [address] [place] [address] 2024 3:00 PM EDT Appointment [facility] 2 [address] [place] [address] 11/04/2024 3:00 PM EDT Appointment [facility] 2 [address] [place] [address] 11/27/2024 12:30 PM EDT Clinical Support P[facility] CC Hematology/BMT and Cellular Therapy Program [address] [address] 11/27/2024 1:00 PM EDT Office Visit PAV Hematology/BMT and Cellular Therapy Program [address] [address] Zonia Hoffman, HOSPICE RN 800 [facility] [address] [place] [phone] documented as of this encounter Visit Diagnoses Not on filedocumented in this encounter Additional Health Concerns Assessment Noted Time A fall risk assessment has been complete d for the patient 07/30/2024 8:29 AM EDT A Body Mass Index follow-up plan has been documented for the patient 05/28/2024 1:52 PM EST documented as of this encounter Care Teams Regional Marketing Manager Relationship Specialty Start Date End Date Jevon Vazquez MD [address] [place] [address] #1 #1 [place] [id number] PCP - General 03/23/22 documented as of this encounter
--- OUTSIDE RECORDS SUMMARY | 2024-10-27 08:59 | XMS_ITS | Encounter Summary ---
Author Organization Healthcare Address [address] [place] [address] Care Team Providers Care Test Developer Name Role Phone Jevon Vazquez MD Primary Care Provider [phone] Encounter Details Date Type Department Care Team ([facility] st Contact Info) Description 10/13/2024 Telephone P[facility] CC Hematology/BMT and Cellular Therapy Program [address] [address] Zonia Hoffman, COMPUTER TECHNICIAN 800 [facility] [address] [place] [address] Social History Tobacco Use Types Packs/Day Years [...] needs to be delayed again Callback number: [phone] documented in this encounter Plan of Treatment Upcoming Encounters Date Type Department Care Team ([facility] st Contact Info) Description 10/29/2024 1:00 PM EDT Clinical Support [facility] CC Hematology/BMT and Cellular Therapy Program [address] [address] 10/29/2024 1:30 PM EDT Office Visit [facility] CC Hematology/BMT and Cellular Therapy Program [address] [address] Zonia Hoffman, COMPUTER TECHNICIAN 800 [facility] [address] [place] [phone] 10/29/2024 3:00 PM EDT Appointment [facility] 2 [address] [place] [address] 10/30/2024 3:00 PM EDT Appointment [facility] 2 [address] [place] [address] 10/31/2024 3:00 PM EDT Appointment [facility] 2 [address] [place] [address] 11/01/2024 3:00 PM EDT Appointment [facility] 2 [address] [place] [address] 11/02/2024 3:00 PM EDT Appointment [facility] 1 [address] [place] [address] 2024 3:00 PM EDT Appointment [facility] 2 [address] [place] [address] 11/04/2024 3:00 PM EDT Appointment [facility] 2 [address] [place] [address] 11/27/2024 12:30 PM EDT Clinical Support [facility] CC Hematology/BMT and Cellular Therapy Program [address] [place] [address] 11/27/2024 1:00 PM EDT Office Visit [facility] CC Hematology/BMT and Cellular Therapy Program [address] [place] [address] Zonia Hoffman, COMPUTER TECHNICIAN 800 [facility] [address] [place] [phone] documented as of this encounter Visit Diagnoses Not on filedocumented in this encounter Additional Health Concerns Assessment Noted Time A fall risk assessment has been complete d for the patient 09/30/2024 9:33 AM EDT A Body Mass Index follow-up plan has been documented for the patient 05/28/2024 1:52 PM EST documented as of this encounter Care Teams Test Developer Relationship Specialty Start Date End Date Jevon Vazquez MD [address] [place] [address] #1 #1 [place] [address] PCP - General 03/23/22 documented as of this encounter
--- OUTSIDE RECORDS SUMMARY | 2024-10-27 08:59 | XMS_ITS | Encounter Summary ---
Author Organization Healthcare Address [address] [place] [address] Care Team Providers Care Hot Mill Tin Roller Name Role Phone Jevon Vazquez MD Primary Care Provider [phone] Encounter Details Date Type Department Care Team [...] Hematology/BMT and Cellular Therapy Program [address] [address] 10/29/2024 1:30 PM EDT Office Visit [facility] CC Hematology/BMT and Cellular Therapy Program [address] [address] Zonia Hoffman, PARK ATTENDANT 800 [facility] [address] [place] [phone] 10/29/2024 3:00 PM EDT Appointment [facility] 2 [address] [place] [address] 10/30/2024 3:00 PM EDT Appointment [facility] 2 [address] [place] [address] 10/31/2024 3:00 PM EDT Appointment [facility] 2 [address] [place] [address] 11/01/2024 3:00 PM EDT Appointment [facility] 2 [address] [place] [address] 11/02/2024 3:00 PM EDT Appointment [facility] 1 [address] [place] [address] 2024 3:00 PM EDT Appointment [facility] 2 [address] [place] [address] 11/04/2024 3:00 PM EDT Appointment [facility] 2 [address] [place] [address] 11/27/2024 12:30 PM EDT Clinical Support P[facility] CC Hematology/BMT and Cellular Therapy Program [address] [address] 11/27/2024 1:00 PM EDT Office Visit PAV Hematology/BMT and Cellular Therapy Program [address] [address] Zonia Hoffman, PARK ATTENDANT 800 [facility] [address] [place] [phone] documented as of this encounter Visit Diagnoses Not on filedocumented in this encounter Additional Health Concerns Assessment Noted Time A fall risk assessment has been complete d for the patient 07/30/2024 8:29 AM EDT A Body Mass Index follow-up plan has been documented for the patient 05/28/2024 1:52 PM EST documented as of this encounter Care Teams Hot Mill Tin Roller Relationship Specialty Start Date End Date Jevon Vazquez MD [address] [place] [address] #1 #1 Julien JOSEP [address] PCP - General 03/23/22 documented as of this encounter
--- OUTSIDE RECORDS SUMMARY | 2024-10-27 08:59 | XMS_ITS | Encounter Summary ---
Author Organization Healthcare Address [address] [place] [address] Care Team Providers Care Statement Services Representative Name Role Phone Jevon Vazquez MD Primary Care Provider [phone] Encounter Details Date Type Department Care Team ([facility] st Contact Info) Description 09/01/2024 Telephone P[facility] CC Hematology/BMT and Cellular Therapy Program [address] [address] Zonia Hoffman, FUR FINISHER SEAMSTRESS 800 [facility] [address] [place] [phone] Social History Tobacco Use Types Packs/Day Years [...] told her to cancel. Please confirm Callback number:[phone] documented in this encounter Plan of Treatment Upcoming Encounters Date Type Department Care Team (Late st Contact Info) Description 10/29/2024 1:00 PM EDT Clinical Support [facility] CC Hematology/BMT and Cellular Therapy Program [address] [address] 10/29/2024 1:30 PM EDT Office Visit PAV Hematology/BMT and Cellular Therapy Program [address] [address] Zonia Hoffman, FUR FINISHER SEAMSTRESS 800 [facility] [address] [place] [address] 10/29/2024 3:00 PM EDT Appointment [facility] 2 [address] [place] [address] 10/30/2024 3:00 PM EDT Appointment [facility] 2 [address] [place] [address] 10/31/2024 3:00 PM EDT Appointment [facility] 2 [address] [place] [address] 11/01/2024 3:00 PM EDT Appointment [facility] 2 [address] [place] [address] 11/02/2024 3:00 PM EDT Appointment [facility] 1 [address] [place] [address] 2024 3:00 PM EDT Appointment [facility] 2 [address] [place] [address] 11/04/2024 3:00 PM EDT Appointment [facility] 2 [address] [place] [address] 11/27/2024 12:30 PM EDT Clinical Support P[facility] CC Hematology/BMT and Cellular Therapy Program [address] [place] [address] 11/27/2024 1:00 PM EDT Office Visit PAV Hematology/BMT and Cellular Therapy Program [address] [place] [address] Znoia Hoffman, FUR FINISHER SEAMSTRESS 800 [facility] [address] [place] [phone] documented as of this encounter Visit Diagnoses Not on filedocumented in this encounter Additional Health Concerns Assessment Noted Time A fall risk assessment has been complete d for the patient 07/30/2024 8:29 AM EDT A Body Mass Index follow-up plan has been documented for the patient 05/28/2024 1:52 PM EST documented as of this encounter Care Teams Statement Services Representative Relationship Specialty Start Date End Date Jevon Vazquez MD [address] [place] [address] #1 #1 [place] [address] PCP - General 03/23/22 documented as of this encounter
--- OUTSIDE RECORDS SUMMARY | 2024-10-27 08:59 | XMS_ITS | Encounter Summary ---
Author Organization Healthcare Address [address] [place] [address] Care Team Providers Care Concrete Pump Operator Name Role Phone Jevon Vazquez MD Primary Care Provider [phone] Encounter Details Date Type Department Care Team ([facility] Contact Info) Description 09/19/2024 Orders Only P[facility] CC Hematology/BMT and Cellular Therapy Program [address] [phone] 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, RN [facility] Social History Tobacco [...] Encounters Date Type Department Care Team ([facility] Contact Info) Description 10/29/2024 1:00 PM EDT Clinical Support P[facility] CC Hematology/BMT and Cellular Therapy Program [address] [phone] 10/29/2024 1:30 PM EDT Office Visit P[facility] CC Hematology/BMT and Cellular Therapy Program [address] [phone] Zonia Hoffman, PROJECT DEVELOPMENT COORDINATOR 800 [facility] [address] [place] [phone] 10/29/2024 3:00 PM EDT Appointment [facility] 2 [address] [place] [address] 10/30/2024 3:00 PM EDT Appointment [facility] 2 [address] [place] [address] 10/31/2024 3:00 PM EDT Appointment [facility] 2 [address] [place] [address] 11/01/2024 3:00 PM EDT Appointment [facility] 2 [address] [place] [address] 11/02/2024 3:00 PM EDT Appointment [facility] 1 [address] [place] [address] 2024 3:00 PM EDT Appointment [facility] 2 [address] [place] [address] 11/04/2024 3:00 PM EDT Appointment [facility] 2 [address] [place] [address] 11/27/2024 12:30 PM EDT Clinical Support P[facility] CC Hematology/BMT and Cellular Therapy Program [address] [address] 11/27/2024 1:00 PM EDT Office Visit P[facility] CC Hematology/BMT and Cellular Therapy Program [address] [address] Zonia Hoffman, PROJECT DEVELOPMENT COORDINATOR 800 [facility] [address] [place] [phone] documented as of this encounter Visit Diagnoses Not on filedocumented in this encounter Additional Health Concerns Assessment Noted Time A fall risk assessment has been complete d for the patient 09/19/2024 8:38 AM EDT A Body Mass Index follow-up plan has been documented for the patient 05/28/2024 1:52 PM EST documented as of this encounter Care Teams Concrete Pump Operator Relationship Specialty Start Date End Date Jevon Vazquez MD [address] [place] [address] #1 #1 [place] [address] PCP - General 03/23/22 documented as of this encounter
--- OUTSIDE RECORDS SUMMARY | 2024-10-27 08:59 | XMS_ITS ---
Author Organization [facility] Address [address] [place] [address] Care Team Providers Care Night Shift Manager Name Role Phone Jevon Vazquez MD Primary Care Provider [phone] Active Problems Problem Noted Date Diagnosed Date [...]
--- OUTSIDE RECORDS SUMMARY | 2024-10-27 08:59 | XMS_ITS | Encounter Summary ---
Author Organization Healthcare Address [address] [place] [address] Care Team Providers Care Windows Server Engineer Name Role Phone Jevon Vazquez MD Primary Care Provider [phone] Encounter Details Date Type Department Care Team [...] Hematology/BMT and Cellular Therapy Program [address] [address] 10/29/2024 1:30 PM EDT Office Visit P[facility] CC Hematology/BMT and Cellular Therapy Program [address] [address] Zonia Hoffman, CLIENT HR MANAGER 800 [facility] [address] [place] [address] 10/29/2024 3:00 PM EDT Appointment [facility] 2 [address] [place] [address] 10/30/2024 3:00 PM EDT Appointment [facility] 2 [address] [place] [address] 10/31/2024 3:00 PM EDT Appointment [facility] 2 [address] [place] [address] 11/01/2024 3:00 PM EDT Appointment [facility] 2 [address] [place] [address] 11/02/2024 3:00 PM EDT Appointment [facility] 1 [address] [place] [address] 2024 3:00 PM EDT Appointment [facility] 2 [address] [place] [address] 11/04/2024 3:00 PM EDT Appointment [facility] 2 [address] [place] [address] 11/27/2024 12:30 PM EDT Clinical Support P[facility] CC Hematology/BMT and Cellular Therapy Program [address] [address] 11/27/2024 1:00 PM EDT Office Visit PAV Hematology/BMT and Cellular Therapy Program [address] [address] Zonia Hoffman, CLIENT HR MANAGER 800 [facility] [address] [place] [phone] documented as of this encounter Visit Diagnoses Not on filedocumented in this encounter Additional Health Concerns Assessment Noted Time A fall risk assessment has been complete d for the patient 09/30/2024 9:33 AM EDT A Body Mass Index follow-up plan has been documented for the patient 05/28/2024 1:52 PM EST documented as of this encounter Care Teams Windows Server Engineer Relationship Specialty Start Date End Date Jevon Vazquez MD [address] [place] [address] #1 #1 Julien JOSEP [address] PCP - General 03/23/22 documented as of this encounter
--- OUTSIDE RECORDS SUMMARY | 2024-10-27 09:00 | XMS_ITS | Clinical Summary ---
Author Organization [facility] Address [address] [place] [address] Phone Care Team Providers Care Sales Producer Name Role Phone Jevon Vazquez MD Primary Care Provider [phone] Allergies Active Allergy Reactions Criticality Noted Date [...] L4-5 LAMINECTOMY; Surgeon: Ivan Bartholomew MD; Location: [facility] MA[facility] OR; Service: Spine Medical History [...] 5.6 % 11/14/2022 2:57 PM EDT PREFERRED [employer] Est. Avg Glucose 148 mg/dL 11/14/2022 2:57 PM EDT [employer], [facility] Blood VENOUS BLOOD / Unknown Venipuncture / Unknown 11/11/2022 3:46 PM EDT 11/11/2022 3:55 PM EDT Narrative [facility] [employer] [facility] - 11/14/2022 2:57 PM EDT REFERENCE RANGE: Normal: 4.0-5.6% Pre-diabetes: 5.7-6.4% Provisional diagnosis of diabetes: >6.4% Hgb F>10% and anything which shortens red cell survival, such as hemolytic anemia, or unstable hemoglobin variants such as HbSS, HbSC, or HbCC, will lower the HbA1c value associated with a given level of glycemic control. us Lexi Maloney DO CHEMISTRY ORDERABLES Final R esult [facility] [employer] [facility] [address] [facility] , [place] [address] * (ABNORMAL) BASIC METABOLIC PANEL (11/11/2022 3:46 PM EDT) Sodium 136 136 - 145 mmol/L 11/11/2022 4:11 PM EDT [facility] Potassium 3.8 3.5 - 5.0 mmol/L 11/11/2022 4:11 PM EDT [facility] Chloride 102 98 - 107 mmol/L 11/11/2022 4:11 PM EDT [facility] Total CO2 24 22 - 29 mmol/L 11/11/2022 4:11 PM EDT [facility] Anion Gap 10 7 - 16 mmol/L 11/11/2022 4:11 PM EDT [facility] Calcium 10.1 8.8 - 10.4 mg/dL 11/11/2022 4:11 PM EDT [facility] Glucose Lvl 147(H) 82 - 100 mg/dL 11/11/2022 4:11 PM EDT [facility] BUN 15 8 - 23 mg/dL 11/11/2022 4:11 PM EDT [facility] Creatinine 0.82 0.51 - 1.30 mg/dL 11/11/2022 4:11 PM EDT [facility] eGFR (CKD-EPIcr 2020) 76 >=60 mL/min/1.7 3 m2 11/11/2022 4:11 PM EDT [facility] Comment:Estimated GFR was ca lculated using the CKD-EPIcr (2020) equation refit without race. The equation is recommended by the National Kidney Foundation - [place] [employer] Nephrology Task Force. Blood VENOUS BLOOD / Unknown Venipuncture / Unknown 11/11/2022 3:46 PM EDT 11/11/2022 3:54 PM EDT us Leona Hanna DO CHEMISTRY ORDERABLES Final Res ult [facility] [address] [place] [address] * DX BONE DENSITY AXIAL SKELETON (07/25/2022 9:14 AM EDT) Anatomical Region Laterality Modality Dexa Scan 07/25/2022 Narrative 07/25/2022 3:45 PM EDT Indication: The patient is a female age 65 or older who requires a bone density assessment. Study was performed on [employer] 5. Bone Density: Region BMD T-score Z-score [...] Most Recently Relevant to Health Maintenance Insurance [place] [address] [address] MEDICARE SUPPLEMENT MEDICARE [place] PART A AND B Member Subscriber Plan / Payer (Ef fective 2016-Present) Name:Ashly Hernández Member ID:[id number] Relation to Subscriber:Self Name:Ashly Hernández Subscriber ID:[id number] Payer ID:Not on file Group ID:Not on file Type:Not on file Address: [address] MEDICARE [place] [address] [phone] MEDICARE [place] PART A AND B Member Subscriber Plan / Payer (Ef fective 2016-Present) Name:Ashly Hernández Member ID:[id number] Relation to Subscriber:Self Name:Ashly Hernández Subscriber ID:[id number] Payer ID:Not on file Group ID:Not on file Type:Not on file Address: [address] MEDICARE SUPPLEMENT [employer] MEDICARE [place] PART A AND B [address] MEDICARE SUPPLEMENT Advance Directives For more information, please contact: [phone] * Full Code (Latest Code Status on File) Date Activated Date Inactivated Comments 11/14/2022 6:53 PM 11/16/2022 7:37 PM * Full Code Date Activated Date Inactivated Comments 11/12/2022 5:17 AM 11/14/2022 6:47 PM Care Teams Sales Producer Relationship Specialty Start Date End Date Jevon Vazquez MD [address] [place] [address] PCP - General Family Medicine 11/10/22
--- OUTSIDE RECORDS SUMMARY | 2024-10-27 09:00 | XMS_ITS | Encounter Summary ---
Author Organization Healthcare Address [address] [place] [address] Care Team Providers Care Bilingual Sales Consultant Name Role Phone Jevon Vazquez MD Primary Care Provider [phone] Encounter Details Date Type Department Care Team [...] Hematology/BMT and Cellular Therapy Program [address] [address] 10/29/2024 1:30 PM EDT Office Visit [facility] Hematology/BMT and Cellular Therapy Program [address] [address] Zonia Hoffman, COMMUNITY ASSISTANT 800 [facility] [address] [place] [address] 10/29/2024 3:00 PM EDT Appointment [facility] [address] [place] [address] 10/30/2024 3:00 PM EDT Appointment [facility] [address] [place] [address] 10/31/2024 3:00 PM EDT Appointment [facility] 2 [address] [place] [address] 11/01/2024 3:00 PM EDT Appointment [facility] 2 [address] [place] [address] 11/02/2024 3:00 PM EDT Appointment [facility] 1 [address] [place] [address] 2024 3:00 PM EDT Appointment [facility] 2 [address] [place] [address] 11/04/2024 3:00 PM EDT Appointment [facility] 2 [address] [place] [address] 11/27/2024 12:30 PM EDT Clinical Support [facility] Hematology/BMT and Cellular Therapy Program [address] [address] 11/27/2024 1:00 PM EDT Office Visit [facility] Hematology/BMT and Cellular Therapy Program [address] [address] Zonia Hoffman, COMMUNITY ASSISTANT 800 [facility] [address] [place] [address] documented as of this encounter Visit Diagnoses Not on filedocumented in this encounter Additional Health Concerns Assessment Noted Time A fall risk assessment has been complete d for the patient 09/19/2024 8:38 AM EDT A Body Mass Index follow-up plan has been documented for the patient 05/28/2024 1:52 PM EST documented as of this encounter Care Teams Bilingual Sales Consultant Relationship Specialty Start Date End Date Jevon Vazquez MD [address] [place] [address] #1 #1 Julien JOSEP [id number] PCP - General 03/23/22 documented as of this encounter
--- OUTSIDE RECORDS SUMMARY | 2024-10-27 09:00 | XMS_ITS | Encounter Summary ---
Author Organization Healthcare Address [address] [place] [address] Care Team Providers Care Transportation Equipment Painter Name Role Phone Jevon Vazquez MD Primary Care Provider [phone] Encounter Details Date Type Department Care Team [...] Hematology/BMT and Cellular Therapy Program [address] [address] 10/29/2024 1:30 PM EDT Office Visit [facility] Hematology/BMT and Cellular Therapy Program [address] [address] Zonia Hoffman, RAT POISONER 800 [facility] [address] [place] [address] 10/29/2024 3:00 PM EDT Appointment [facility] 2 [address] [place] [address] 10/30/2024 3:00 PM EDT Appointment [facility] 2 [address] [place] [address] 10/31/2024 3:00 PM EDT Appointment [facility] 2 [address] [place] [address] 11/01/2024 3:00 PM EDT Appointment [facility] 2 [address] [place] [address] 11/02/2024 3:00 PM EDT Appointment [facility] 1 [address] [place] [address] 2024 3:00 PM EDT Appointment [facility] 2 [address] [place] [address] 11/04/2024 3:00 PM EDT Appointment [facility] 2 [address] [place] [address] 11/27/2024 12:30 PM EDT Clinical Support [facility] Hematology/BMT and Cellular Therapy Program [address] [address] 11/27/2024 1:00 PM EDT Office Visit [facility] Hematology/BMT and Cellular Therapy Program [address] [address] Zonia Hoffman, RAT POISONER 800 [facility] [address] [place] [phone] documented as of this encounter Visit Diagnoses Not on filedocumented in this encounter Additional Health Concerns Assessment Noted Time A fall risk assessment has been complete d for the patient 09/30/2024 9:33 AM EDT A Body Mass Index follow-up plan has been documented for the patient 05/28/2024 1:52 PM EST documented as of this encounter Care Teams Transportation Equipment Painter Relationship Specialty Start Date End Date Jevon Vazquez MD [address] [place] [address] #1 #1 Julien JOSEP [id number] PCP - General 03/23/22 documented as of this encounter
--- OUTSIDE RECORDS SUMMARY | 2024-10-27 09:00 | XMS_ITS | Encounter Summary ---
Author Organization Healthcare Address [address] [place] [address] Care Team Providers Care Risk Management Manager Name Role Phone Jevon Vazquez MD Primary Care Provider [phone] Encounter Details Date Type Department Care Team [...] Cellular Therapy Program [address] [address] 10/29/2024 1:30 PM EDT Office Visit [facility] Hematology/BMT and Cellular Therapy Program [address] [phone] Zonia Hoffman, FLEET OPERATIONS MANAGER 800 [facility] [address] [place] [address] 10/29/2024 3:00 PM EDT Appointment [facility] [address] [place] [address] 10/30/2024 3:00 PM EDT Appointment [facility] 2 [address] [place] [address] 10/31/2024 3:00 PM EDT Appointment [facility] 2 [address] [place] [address] 11/01/2024 3:00 PM EDT Appointment [facility] 2 [address] [place] [address] 11/02/2024 3:00 PM EDT Appointment [facility] 1 [address] [place] [address] 2024 3:00 PM EDT Appointment [facility] 2 [address] [place] [address] 11/04/2024 3:00 PM EDT Appointment [facility] 2 [address] [place] [address] 11/27/2024 12:30 PM EDT Clinical Support [facility] Hematology/BMT and Cellular Therapy Program [address] [address] 11/27/2024 1:00 PM EDT Office Visit [facility] Hematology/BMT and Cellular Therapy Program [address] [address] Zonia Hoffman, FLEET OPERATIONS MANAGER 800 [facility] [address] [place] [phone] documented as of this encounter Visit Diagnoses Not on filedocumented in this encounter Additional Health Concerns Assessment Noted Time A fall risk assessment has been complete d for the patient 09/30/2024 9:33 AM EDT A Body Mass Index follow-up plan has been documented for the patient 05/28/2024 1:52 PM EST documented as of this encounter Care Teams Risk Management Manager Relationship Specialty Start Date End Date Jevon Vazquez MD [address] [place] [address] #1 #1 Julien JOSEP [id number] PCP - General 03/23/22 documented as of this encounter
--- OUTSIDE RECORDS SUMMARY | 2024-10-27 09:00 | XMS_ITS | Encounter Summary ---
Author Organization Healthcare Address [address] [place] [address] Care Team Providers Care Call Center Support Representative Name Role Phone Jevon Vazquez MD Primary Care Provider [phone] Encounter Details Date Type Department Care Team [...] Hematology/BMT and Cellular Therapy Program [address] [address] 10/29/2024 1:30 PM EDT Office Visit [facility] Hematology/BMT and Cellular Therapy Program [address] [address] Zonia Hoffman, MOBILE MARKETING MANAGER 800 [facility] [address] [place] [address] 10/29/2024 3:00 PM EDT Appointment [facility] 2 [address] [place] [address] 10/30/2024 3:00 PM EDT Appointment [facility] 2 [address] [place] [address] 10/31/2024 3:00 PM EDT Appointment [facility] 2 [address] [place] [address] 11/01/2024 3:00 PM EDT Appointment [facility] 2 [address] [place] [address] 11/02/2024 3:00 PM EDT Appointment [facility] 1 [address] [place] [address] 2024 3:00 PM EDT Appointment [facility] 2 [address] [place] [address] 11/04/2024 3:00 PM EDT Appointment [facility] 2 [address] [place] [address] 11/27/2024 12:30 PM EDT Clinical Support [facility] Hematology/BMT and Cellular Therapy Program [address] [address] 11/27/2024 1:00 PM EDT Office Visit [facility] Hematology/BMT and Cellular Therapy Program [address] [address] Zonia Hoffman, MOBILE MARKETING MANAGER 800 [facility] [address] [place] [phone] documented as of this encounter Visit Diagnoses Not on filedocumented in this encounter Additional Health Concerns Assessment Noted Time A fall risk assessment has been complete d for the patient 09/19/2024 8:38 AM EDT A Body Mass Index follow-up plan has been documented for the patient 05/28/2024 1:52 PM EST documented as of this encounter Care Teams Call Center Support Representative Relationship Specialty Start Date End Date Jevon Vazquez MD [address] [place] [address] #1 #1 Julien JOSEP [address] PCP - General 03/23/22 documented as of this encounter
--- OUTSIDE RECORDS SUMMARY | 2024-10-27 09:00 | XMS_ITS | Encounter Summary ---
Author Organization Healthcare Address [address] [place] [address] Care Team Providers Care Aboriginal Ceremonial Celebrant Name Role Phone Jevon Vazquez MD Primary Care Provider [phone] Encounter Details Date Type Department Care Team [...] Hematology/BMT and Cellular Therapy Program [address] [address] 10/29/2024 1:30 PM EDT Office Visit [facility] Hematology/BMT and Cellular Therapy Program [address] [address] Zonia Hoffman, PREPARATION SUPERVISOR CANNING 800 [facility] [address] [place] [address] 10/29/2024 3:00 PM EDT Appointment [facility] 2 [address] [place] [address] 10/30/2024 3:00 PM EDT Appointment [facility] 2 [address] [place] [address] 10/31/2024 3:00 PM EDT Appointment [facility] 2 [address] [place] [address] 11/01/2024 3:00 PM EDT Appointment [facility] 2 [address] [place] [address] 11/02/2024 3:00 PM EDT Appointment [facility] 1 [address] [place] [address] 2024 3:00 PM EDT Appointment [facility] 2 [address] [place] [address] 11/04/2024 3:00 PM EDT Appointment [facility] 2 [address] [place] [address] 11/27/2024 12:30 PM EDT Clinical Support [facility] Hematology/BMT and Cellular Therapy Program [address] [address] 11/27/2024 1:00 PM EDT Office Visit [facility] Hematology/BMT and Cellular Therapy Program [address] [address] Zonia Hoffman, PREPARATION SUPERVISOR CANNING 800 [facility] [address] [place] [phone] documented as of this encounter Visit Diagnoses Not on filedocumented in this encounter Additional Health Concerns Assessment Noted Time A fall risk assessment has been complete d for the patient 09/19/2024 8:38 AM EDT A Body Mass Index follow-up plan has been documented for the patient 05/28/2024 1:52 PM EST documented as of this encounter Care Teams Aboriginal Ceremonial Celebrant Relationship Specialty Start Date End Date Jevon Vazquez MD [address] [place] [address] #1 #1 Julien JOSEP [address] PCP - General 03/23/22 documented as of this encounter
--- OUTSIDE RECORDS SUMMARY | 2024-10-27 09:00 | XMS_ITS | Encounter Summary ---
Author Organization Healthcare Address [address] [place] [address] Care Team Providers Care Vinyl Installer Name Role Phone Jevon Vazquez MD Primary Care Provider [phone] Encounter Details Date Type Department Care Team [...] Hematology/BMT and Cellular Therapy Program [address] [address] 10/29/2024 1:30 PM EDT Office Visit [facility] Hematology/BMT and Cellular Therapy Program [address] [address] Zonia Hoffman, VALET RUNNER 800 [facility] [address] [place] [address] 10/29/2024 3:00 PM EDT Appointment [facility] 2 [address] [place] [address] 10/30/2024 3:00 PM EDT Appointment [facility] 2 [address] [place] [address] 10/31/2024 3:00 PM EDT Appointment [facility] 2 [address] [place] [address] 11/01/2024 3:00 PM EDT Appointment [facility] 2 [address] [place] [address] 11/02/2024 3:00 PM EDT Appointment [facility] 1 [address] [place] [address] 2024 3:00 PM EDT Appointment [facility] 2 [address] [place] [address] 11/04/2024 3:00 PM EDT Appointment [facility] 2 [address] [place] [address] 11/27/2024 12:30 PM EDT Clinical Support [facility] Hematology/BMT and Cellular Therapy Program [address] [address] 11/27/2024 1:00 PM EDT Office Visit [facility] Hematology/BMT and Cellular Therapy Program [address] [address] Zonia Hoffman, VALET RUNNER 800 [facility] [address] [place] [phone] documented as of this encounter Visit Diagnoses Not on filedocumented in this encounter Additional Health Concerns Assessment Noted Time A fall risk assessment has been complete d for the patient 09/30/2024 9:33 AM EDT A Body Mass Index follow-up plan has been documented for the patient 05/28/2024 1:52 PM EST documented as of this encounter Care Teams Vinyl Installer Relationship Specialty Start Date End Date Jevon Vazquez MD [address] [place] [address] #1 #1 Julien JOSEP [id number] PCP - General 03/23/22 documented as of this encounter
--- OUTSIDE RECORDS SUMMARY | 2024-10-27 09:00 | XMS_ITS | Clinical Summary ---
Author Organization [facility] [place] [facility] Address [address] [place] [address] Care Team Providers Care Feed Adviser Name Role Phone David Vazquez Primary Care Provider [phone] Allergies No known active allergies Medications atorvastatin [...] series) 2025 Medical Devices Implanted Type [facility] Liaison Device Identifier Shelf Expiration Date Model / Serial / Lot Mis Ply Scr 6.5x50mm - [id number] Implanted:Qty : 1 on 01/30/2023 by Ivan Bartholomew MD at [facility] Screw N/A: Spine Lumbar [employer] [id number] / / Mis Ply Scr 6.5x45mm - [id number] Implanted:Qty : 3 on 01/30/2023 by Ivan Bartholomew MD at [facility] Screw N/A: Spine Lumbar [employer] [id number] / / Reline Mas Reduction Screw 7.5x45 - [id number] Implanted:Qty : 2 on 01/30/2023 by Ivan Bartholomew MD at [facility] Screw N/A: Spine Lumbar [employer] [id number] / / Grft Dbm Vesuvius Putty 5cc - [id number] Implanted:Qty : 1 on 01/30/2023 by Ivan Bartholomew MD at [facility] [employer] [id number] 04/20/2025 [id number] P / [id number] 1 / Putty I-Factor 5.0cc - [id number] Implanted:Qty : 1 on 01/30/2023 by Ivan Bartholomew MD at [facility] N/A: Spine Lumbar [employer] 03/15/2025 [id number] / / [id number] Modulus Xlw [id number] 10 Degree - [id number] Implanted:Qty : 1 on 01/30/2023 by Ivan Bartholomew MD at [facility] N/A: Spine Lumbar [employer] [id number] / / [id number] Modulus Xlw [id number] - [id number] Implanted:Qty : 1 on 01/30/2023 by Ivan Bartholomew MD at [facility] N/A: Spine Lumbar [employer] 09/28/2027 [id number] / / [id number] Reln Lock Scr 5.5mm Opn Tulip - [id number] Implanted:Qty : 6 on 01/30/2023 by Ivan Bartholomew MD at [facility] N/A: Spine Lumbar [employer] [id number] / / Reln Mas Ti Petar 5.5x70mm - [id number] Implanted:Qty : 2 on 01/30/2023 by Ivan Bartholomew MD at [facility] N/A: Spine Lumbar [employer] [id number] / / Procedures Procedure Name Priority Date/Time [...] Hgb A1C 6.0(H) 4.0 - 5.6 % [facility] Comment: Reference Ranges [...] Glycohemoglobin Standardization program (NGSP) and [facility] Estimated Average Glucose 126(H) 68 - 114 mg/dL [facility] Whole Blood (Blood) 01/24/2023 2:32 PM EDT 01/24/2023 6:00 PM EDT us Ivan Bartholomew MD CHEMISTRY ORDERABLES Fin al Result [facility] [address] * (ABNORMAL) BASIC METABOLIC PANEL (BMP=EP1) (01/24/2023 2:32 PM EDT) Sodium 141 135 - 146 mmol/L [facility] Potassium 4.8 3.5 - 5.1 mmol/L [facility] Chloride 107 98 - 110 mmol/L [facility] CO2 24 22 - 29 mmol/L [facility] Anion Gap 10 5 - 13 mmol/L [facility] Comment:Anion gap calculatio n does not include potassium (K+) value. BUN 17 7 - 25 mg/dL [facility] Creatinine 1.20 0.50 - 1.20 mg/dL [facility] Glucose 125(H) 71 - 99 mg/dL [facility] Comment:Reference range (71- 99 mg/dL) refers only to fasting samples, and does not apply to non-fasting samples. eGFR CKD-EPI 2020 48 See Note [facility] Comment: eGFR calculated with 2020 CKD-EPI equation using creatinine, patient's age and gender. Other factors, especially muscle mass, may affect accuracy and need to be considered. Patient values should be interpreted as a trend. The reference interval is >60 mL/min/1.73m2. Calcium 10.3 8.5 - 10.5 mg/dL [facility] BUN/Creatinine Ratio 14 [facility] Serum 01/24/2023 2:32 PM EDT 01/24/2023 5:54 PM EDT us Lexi SUAREZ CHEMISTRY ORDERABLES Final Resu lt [facility] [address] from Last 3 Months or Most Recently Relevant to Health Maintenance Insurance MEDICARE PART A [facility] [address] [address] [place] [address] ANTH Advance Directives For more information, please contact: [phone] * Full Code (Latest Code Status on File) Date Activated Date Inactivated Comments 01/30/2023 9:13 AM No automated chest compression devices for [facility] Patients Care Teams Feed Adviser Relationship Specialty Start Date End Date David Vazquez [address] [place] [phone] PCP - General 01/24/23
--- OUTSIDE RECORDS SUMMARY | 2024-10-27 09:00 | XMS_ITS | Encounter Summary ---
Author Organization Healthcare Address [address] [place] [address] Care Team Providers Care Fuel Tank Sealer And Tester Name Role Phone Jevon Vazquez MD Primary Care Provider [phone] Encounter Details Date Type Department Care Team [...] Hematology/BMT and Cellular Therapy Program [address] [address] 10/29/2024 1:30 PM EDT Office Visit [facility] Hematology/BMT and Cellular Therapy Program [address] [address] Zonia Hoffman, SALES AND IN HOME DELIVERY SPECIALIST 800 [facility] [address] [place] [address] 10/29/2024 3:00 PM EDT Appointment [facility] 2 [address] [place] [address] 10/30/2024 3:00 PM EDT Appointment [facility] 2 [address] [place] [address] 10/31/2024 3:00 PM EDT Appointment [facility] 2 [address] [place] [address] 11/01/2024 3:00 PM EDT Appointment [facility] 2 [address] [place] [address] 11/02/2024 3:00 PM EDT Appointment [facility] 1 [address] [place] [address] 2024 3:00 PM EDT Appointment [facility] 2 [address] [place] [address] 11/04/2024 3:00 PM EDT Appointment [facility] 2 [address] [place] [address] 11/27/2024 12:30 PM EDT Clinical Support [facility] Hematology/BMT and Cellular Therapy Program [address] [address] 11/27/2024 1:00 PM EDT Office Visit [facility] Hematology/BMT and Cellular Therapy Program [address] [address] Zonia Hoffman, SALES AND IN HOME DELIVERY SPECIALIST 800 [facility] [address] [place] [phone] documented as of this encounter Visit Diagnoses Not on filedocumented in this encounter Additional Health Concerns Assessment Noted Time A fall risk assessment has been complete d for the patient 09/19/2024 8:38 AM EDT A Body Mass Index follow-up plan has been documented for the patient 05/28/2024 1:52 PM EST documented as of this encounter Care Teams Fuel Tank Sealer And Tester Relationship Specialty Start Date End Date Jevon Vazquez MD [address] [place] [address] #1 #1 Julien JOSEP [id number] PCP - General 03/23/22 documented as of this encounter
--- OUTSIDE RECORDS SUMMARY | 2024-10-27 09:00 | XMS_ITS | Encounter Summary ---
Author Organization [facility] Address [address] [place] [address] Care Team Providers Care Oncology Radiation Physician Name Role Phone Jevon Vazquez MD Primary Care Provider [phone] Encounter Details Date Type Department Care Team ([facility] Contact Info) Description 10/08/2024 Orders Only [facility] Hematology/BMT and Cellular Therapy Program [address] [address] 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, RN [facility] [...] Type Department Care Team ([facility] Contact Info) Description 10/29/2024 1:00 PM EDT Clinical Support [facility] Hematology/BMT and Cellular Therapy Program [address] [address] 10/29/2024 1:30 PM EDT Office Visit [facility] Hematology/BMT and Cellular Therapy Program [address] [address] Zonia Hoffman, BOTTLE INSPECTOR 800 [facility] [address] [place] [address] 10/29/2024 3:00 PM EDT Appointment [facility] 2 [address] [place] [address] 10/30/2024 3:00 PM EDT Appointment [facility] 2 [address] [place] [address] 10/31/2024 3:00 PM EDT Appointment [facility] 2 [address] [place] [address] 11/01/2024 3:00 PM EDT Appointment [facility] 2 [address] [place] [address] 11/02/2024 3:00 PM EDT Appointment [facility] 1 [address] [place] [address] 2024 3:00 PM EDT Appointment [facility] 2 [address] [place] [address] 11/04/2024 3:00 PM EDT Appointment [facility] Infusion Clinic 2 [address] [place] [address] 11/27/2024 12:30 PM EDT Clinical Support [facility] Hematology/BMT and Cellular Therapy Program [address] [place] [address] 11/27/2024 1:00 PM EDT Office Visit [facility] Hematology/BMT and Cellular Therapy Program [address] [place] [address] Zonia Hoffman, BOTTLE INSPECTOR 800 [facility] [address] [place] [phone] Scheduled Orders Name Type Priority Associated Diagnoses [...] documented as of this encounter Care Teams Oncology Radiation Physician Relationship Specialty Start Date End Date Jevon Vazquez MD [address] [place] [address] #1 #1 JOSEP [place] [address] PCP - General 03/23/22 documented as of this encounter
--- OUTSIDE RECORDS SUMMARY | 2024-10-27 09:00 | XMS_ITS | Clinical Summary ---
Author Organization [facility] Address [address] [place] [address] Care Team Providers Care Passenger Relations Representative Name Role Phone Jevon Vazquez MD Primary Care Provider [phone] Allergies No known active allergies Medications amLODIPine [...] Encounters Date Type Department Care Team Description 10/26/2024 Travel 10/24/2024 Travel 10/23/2024 Travel 10/22/2024 Travel 10/15/2024 Refill [facility]BMT [facility] Cellular Therapy Program [address] [phone] New Mckinney MD 10/14/2024 Refill [facility] Therapy [facility] [address] [phone] New Mckinney MD 10/13/2024 Telephone [facility] Therapy [facility] [address] [phone] Zonia Hoffman APRN 10/13/2024 Travel 10/12/2024 Travel 10/11/2024 Travel 10/09/2024 Travel 10/08/2024 Travel 10/08/2024 Orders Only [facility] Therapy [facility] [address] [phone] 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, electronic field service engineer 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) 10/07/2024 Travel 09/30/2024 9:30 AM EDT Office Visit [facility] Cellular Therapy [facility] [address] [phone] Zonia Hoffman APRN 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) 09/30/2024 9:00 AM EDT Clinical Support [facility] Therapy [facility] [address] [phone] Jyoti Kemp 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) 09/30/2024 Telephone [facility] Therapy [facility] [address] [phone] Zoraida Good RN 09/30/2024 Travel 09/29/2024 Travel 09/28/2024 Travel 09/27/2024 Travel 09/26/2024 Travel 09/25/2024 Travel 09/24/2024 Travel 09/23/2024 Travel 09/19/2024 12:00 PM EDT Procedure Visit [facility]ology[facility]BMT [facility] Cellular Therapy Program [address] [phone] Lexi Ferraro APRN 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) 09/19/2024 9:30 AM EDT Clinical Support [facility] [address] [facility], [address]nd [place] [address] 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) 09/19/2024 7:30 AM EDT Clinical Support [facility]ology/BMT and Cellular Therapy Program [address] [phone] 09/19/2024 Telephone [facility]MT [facility] Cellular Therapy Program [address] [phone] Romana Richmond RN 09/19/2024 Orders Only [facility]ology[facility]BMT [facility] Cellular Therapy Program [address] [place] [address] 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, RN 09/19/2024 Travel 09/15/2024 Telephone [facility] Cellular Therapy Program [address] [place] [address] Zonia Hoffman, CLINICAL SUPPORT TECH 09/15/2024 Travel 09/14/2024 Travel 09/13/2024 Travel 09/12/2024 Travel 09/12/2024 Refill [facility] Cellular Therapy [facility] [address] [phone] New Mckinney MD 09/11/2024 Travel 09/10/2024 Travel 09/01/2024 Telephone [facility] Cellular Therapy [facility] [address] [phone] Zonia Hoffman, CLINICAL SUPPORT TECH 08/31/2024 Travel 08/30/2024 Travel 08/18/2024 Telephone [facility] Cellular Therapy [facility] [address] [phone] Romana Gorman, CLINICAL SUPPORT TECH 08/17/2024 Travel 08/16/2024 Travel 08/15/2024 Travel 08/13/2024 Travel 07/30/2024 8:30 AM EDT Office Visit [facility]MT [facility] Cellular Therapy Program [address] [place] [address] Zonia Hoffman, CLINICAL SUPPORT TECH Pancytopenia (Primary Dx) 07/30/2024 8:00 AM EDT Clinical Support [facility] Therapy [facility] [address] [place] [address] Pancytopenia 07/30/2024 Telephone [facility]BMT [facility] Cellular Therapy Program [address] [place] [address] Romana Richmond RN 07/30/2024 Refill [facility]ology[facility]BMT [facility] Cellular Therapy Program 750 [facility], [address] [place] [address] [place] [address] Daxa Elliott RN 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); Immunosuppressed status (CMS/HCC) 07/30/2024 Travel 07/29/2024 Travel 07/28/2024 Travel from Last 3 Months Immunizations Immunization [...] [facility] Contact Info) Description 10/29/2024 1:00 PM EDT Clinical Support [facility]MT [facility] Cellular Therapy [facility] [address] [place] [address] 10/29/2024 1:30 PM EDT Office Visit [facility]ology[facility]BMT and Cellular Therapy Program [address] [place] [address] Zonia Hoffman, CLINICAL SUPPORT TECH 800 [facility] [address] [phone] 10/29/2024 3:00 PM EDT Appointment [facility] [address] [place] [address] 10/30/2024 3:00 PM EDT Appointment [facility] [address] [place] [address] 10/31/2024 3:00 PM EDT Appointment [facility] [address] [place] [address] 11/01/2024 3:00 PM EDT Appointment [facility] [address] [place] [address] 11/02/2024 3:00 PM EDT Appointment [facility] 1 [address] [place] [address] 2024 3:00 PM EDT Appointment [facility] [address] [place] [address] 11/04/2024 3:00 PM EDT Appointment [facility] [address] [place] [address] 11/27/2024 12:30 PM EDT Clinical Support [facility] Cellular Therapy [facility] [address] [place] [address] 11/27/2024 1:00 PM EDT Office Visit [facility] Hematology/BMT and Cellular Therapy Program [address] [place] [address] Zonia Hoffman, CLINICAL SUPPORT TECH 800 [facility] [address] [address] Health Maintenance Due Date Last Done Comments [...] UKY-Zoster Vaccines (1 of 2) 05/16/2023 03/21/2023 [id number] Vaccine ( season) 2023 02/18/2021, 07/10/2020, 06/12/2020 [...] this topic Medical Devices Implanted Type Area Metal Cnc Operator Device Identifier Shelf Expiration Date Model / Serial / Lot Port Clearvue Power 8fr - [id number] Implanted:Qty: 1 on 01/21/2024 by Ness Sargent MD at [facility] [employer]-[id number] / / Procedures Procedure Name Priority Date/Time [...] LAB HEMATOLOGY METHOD 09/30/2024 11:07 AM EDT [facility] RBC Count 1.91(L) 3.90 - 5.20 10*6/uL LAB HEMATOLOGY METHOD 09/30/2024 11:07 AM EDT [facility] HGB 7.7(L) 11.2 - 15.7 g/dL LAB HEMATOLOGY METHOD 09/30/2024 11:07 AM EDT [facility] HCT 22.8(L) 34.0 - 45.0 % LAB HEMATOLOGY METHOD 09/30/2024 11:07 AM EDT [facility] Platelet Count 17(LL) 155 - 369 10*3/uL LAB HEMATOLOGY METHOD 09/30/2024 11:07 AM EDT [facility] MCV 119(H) 79 - 98 fL LAB HEMATOLOGY METHOD 09/30/2024 11:07 AM EDT [facility] MCH 40.3(H) 26.0 - 32.0 pg LAB HEMATOLOGY METHOD 09/30/2024 11:07 AM EDT [facility] MCHC 33.8 30.7 - 35.5 g/dL LAB HEMATOLOGY METHOD 09/30/2024 11:07 AM EDT [facility] RDW 18.7(H) 11.5 - 14.5 % LAB HEMATOLOGY METHOD 09/30/2024 11:07 AM EDT [facility] MPV 11.1 8.8 - 12.5 fL LAB HEMATOLOGY METHOD 09/30/2024 11:07 AM EDT [facility] nRBC 0.0 <=0.0 per 100 WBCs LAB HEMATOLOGY METHOD 09/30/2024 11:07 AM EDT [facility] Differential Type Automated LAB HEMATOLOGY METHOD 09/30/2024 11:07 AM EDT [facility] Neutrophils % 65 % LAB HEMATOLOGY METHOD 09/30/2024 11:07 AM EDT [facility] Lymphocytes % 26 % LAB HEMATOLOGY METHOD 09/30/2024 11:07 AM EDT [facility] Monocytes % 7 % LAB HEMATOLOGY METHOD 09/30/2024 11:07 AM EDT [facility] Eosinophils % 1 % LAB HEMATOLOGY METHOD 09/30/2024 11:07 AM EDT [facility] Basophils % 1 % LAB HEMATOLOGY METHOD 09/30/2024 11:07 AM EDT [facility] Immature Granulocytes % 0 % LAB HEMATOLOGY METHOD 09/30/2024 11:07 AM EDT [facility] Neutrophils Absolute 2.17 1.60 - 6.10 10*3/uL LAB HEMATOLOGY METHOD 09/30/2024 11:07 AM EDT [facility] Lymphocytes Absolute 0.87(L) 1.20 - 3.90 10*3/uL LAB HEMATOLOGY METHOD 09/30/2024 11:07 AM EDT [facility] Monocytes Absolute 0.24(L) 0.30 - 0.90 10*3/uL LAB HEMATOLOGY METHOD 09/30/2024 11:07 AM EDT [facility] Eosinophils Absolute 0.03 0.00 - 0.50 10*3/uL LAB HEMATOLOGY METHOD 09/30/2024 11:07 AM EDT [facility] Basophils Absolute 0.02 0.00 - 0.10 10*3/uL LAB HEMATOLOGY METHOD 09/30/2024 11:07 AM EDT [facility] Immature Granulocytes Absolute 0.01 0.00 - 0.06 10*3/uL LAB HEMATOLOGY METHOD 09/30/2024 11:07 AM EDT [facility] Blood Venous blood specimen / Unknown (Port) Long-term Catheter / Unknown 09/30/2024 9:11 AM EDT 09/30/2024 9:34 AM EDT Narrative [facility] - 09/30/2024 11:07 AM EDT Therapeutic decision making should be based on absolute values, rather than percentages. us Zonia Hayley Rojassky CLINICAL SUPPORT TECH LAB BLOOD ORDERABLES Final Res ult [facility] [address] [place] [address] * (ABNORMAL) Comprehensive Metabolic Panel, Plasma (09/30/2024 9:11 AM EDT) Only the most recent of2 resultswithin the time period is included. Glucose, Plasma 135(H) 74 - 99 mg/dL 09/30/2024 10:20 AM EDT [facility] BUN, Plasma 21 8 - 23 mg/dL 09/30/2024 10:20 AM EDT [facility] Creatinine, Plasma 1.00 0.60 - 1.10 mg/dL 09/30/2024 10:20 AM EDT [facility] BUN/Creatinine Ratio 21 09/30/2024 10:20 AM EDT [facility] Sodium, Plasma 137 136 - 145 mmol/L 09/30/2024 10:20 AM EDT [facility] Potassium, Plasma 3.8 3.6 - 4.9 mmol/L 09/30/2024 10:20 AM EDT [facility] Chloride, Plasma 107 97 - 107 mmol/L 09/30/2024 10:20 AM EDT [facility] CO2, Plasma 22 22 - 29 mmol/L 09/30/2024 10:20 AM EDT [facility] Anion Gap 8 6 - 16 mmol/L 09/30/2024 10:20 AM EDT [facility] Total Calcium, Plasma 9.8 8.9 - 10.2 mg/dL 09/30/2024 10:20 AM EDT [facility] Total Protein 5.9(L) 6.3 - 7.9 g/dL 09/30/2024 10:20 AM EDT [facility] Albumin, Plasma 3.8 3.5 - 5.2 g/dL 09/30/2024 10:20 AM EDT [facility] AST, Plasma 28 10 - 35 U/L 09/30/2024 10:20 AM EDT [facility] ALT, Plasma 14 10 - 35 U/L 09/30/2024 10:20 AM EDT [facility] Alkaline Phosphatase, Plasma 34(L) 46 - 142 U/L 09/30/2024 10:20 AM EDT [facility] Total Bilirubin, Plasma 0.3 0.2 - 1.1 mg/dL 09/30/2024 10:20 AM EDT [facility] eGFRcr 59.6 mL/min/1.7 3m*2 09/30/2024 10:20 AM EDT [facility] Comment:Reported eGFRcr in m L/min/1.73m2 is based the CKD-EPI 2020 equation that does not use a race coefficient. Blood Venous blood specimen / Unknown (Port) Long-term Catheter / Unknown 09/30/2024 9:11 AM EDT 09/30/2024 9:50 AM EDT us Zonia Hoffman APRN LAB BLOOD ORDERABLES Final Res ult [facility] [address] [place] [address] * BIOPSY BONE MARROW (09/19/2024 12:00 PM [...] to surronding structures. Alternatives discussed: Delayed treatment [place] protocol: Procedure explained and questions answered to [...] Platelet count (09/19/2024 10:04 AM EDT) Pathologist [facility] Platelet Count 61(L) 155 - 369 10*3/uL LAB HEMATOLOGY METHOD 09/19/2024 10:19 AM EDT [facility] Blood Blood sample taken from central line / Unknown (Port) Long-term Catheter / Unknown 09/19/2024 10:04 AM EDT 09/19/2024 10:18 AM EDT New Mckinney MD LAB BLOOD ORDERABLES Final Re sult [facility] [address] [place] [address] * Transfuse platelets, Irradiated (09/19/2024 10:02 AM EDT) us Lexi Ferraro APRN BLOOD TRANSFUSION ORDERABL ES Final Result * Prepare Leukocyte Reduced Platelets (09/19/2024 9:08 AM EDT) Pathologist [facility] Product Code [id number] BLOO D BANK Dispense Status Transfused BLOOD BANK Blood Expiration Date [id number] BLOOD BANK Unit Number [id number] B LOOD BANK Product Blood Type 6200 BLOOD BANK Blood Type A+ BLOOD BANK us Provider Not In System BLOOD BANK PRODUCT ORD ERABLES Final Result BLOOD BANK [address] [place] [address], * Myeloid Focused Panel, 50 gene (09/19/2024 7:29 AM EDT) Interpretation The following two (2) genes, TP53 and DNMT3A, with persistent variants have been detected in this bone marrow specimen. The variant, p.[id number], in TP53 gene and the variant, p.[id number], in the RUNX 1 gene are not detectable at current cutoff and coverage established in this lab. Gene: TP53 Mutation: c.814G>A; p.Pfv881Wtq Allele Frequency (%): 37% (45% Dec 2023) ID: [id number] Gene: DNMT3A Mutation: c.1522delC; p.[id number] 3 Allele Frequency (%): 36% (48% Dec 2023) Additional Details on Mutation Identified: Gene Transcript Genome Chrom Coordinate RefVar DNMT3A [id number] Hg19 2 [id number] delC TP53 NM_000546.5 Hg19 17 [id number] G>A 09/29/2024 4:05 PM EDT [facility] Methodology The following 50 genes were [...] then sequenced on the Illumina NextSeq 2000 ([employer], [place]). A custom bioinformatics pipeline aligns [...] of hematologic malignancies. 09/29/2024 4:05 PM EDT [facility] Disclaimer This test was developed and its performance characteristics determined by the Clinical Molecular [facility] Path[facility] at [facility]. It has not been cleared [...] clinical laboratory testing. 09/29/2024 4:05 PM EDT [facility] Pathologist Signature Reviewed by: Corey Tejada 09/29/2024 4:05 PM EDT [facility] Bone Marrow Specimen from bone marrow obtained by aspiration / Unknown Non-blood Collection / Unknown 09/19/2024 7:29 AM EDT 09/19/2024 12:03 PM EDT us New Mckinney MD LAB MOLECULAR DIAGNOSTICS ORD ERABLES Final Result [facility] [address] [place] [address], * Chromosome Karyotype, Oncology (09/19/2024 7:29 AM [...] Result [facility] [address] [place] [address] * Leukemia/Lymphoma - Immunophenotyping by Flow Cytometry (09/19/2024 7:29 AM EDT) Clinical Indication AML 09/22/2024 10:29 AM EDT [facility] Flow Cytometry Interpretation A. [...] surface light chains 09/22/2024 10:29 AM EDT [facility] Disclaimer This test was developed and its performance characteristics determined by the Immuno-Molecular Pathology Laboratory at the [facility]. It has not been cleared [...] Result [facility] [address] [place] [address] * Bone marrow exam (09/19/2024 7:29 AM EDT) Case Report Bone Marrow Case: [id number] Authorizing Provider: New Mckinney MD Collected: 09/19/2024 0729 Ordering Location: [facility] Hematology/BMT and Received: 09/19/2024 1216 Cellular Therapy [...] in this bone marrow specimen. The variant, p.[id number], in TP53 gene and the variant, p.Mvs800dwe, in the RUNX 1 gene are not detectable at current cutoff and coverage established in this lab. Gene: TP53 Mutation: c.814G>A; p.Puv501Mdu Allele Frequency (%): 37% (45% Dec 2023) ID: [id number] Gene: DNMT3A Mutation: c.1522delC; p.[id number] 43 Allele Frequency (%): 36% (48% Dec [...] blasts are not seen. 3:[address] [facility] Bone Marrow Differential BONE MARROW DIFFERENTIAL: 200 cells Normal Patient Neutrophils 15-50 34 Metamyelocytes 4-19 3 Myelocytes 1-18 10 Promyelocytes 1-8 1 Blasts 0-2 1 Monocytes 0-5 4 Erythroid 16-38 22 Lymphocytes 3-24 13 Eosinophils 0-6 8 Basophils 0-2 0 Plasma cells 0-4 4 Other 3:[address] [facility] Bone Marrow Aspirate and Biopsy The [...] trabeculae are unremarkable. 3:[address] [facility] Special and Immunohistochemical Stains Special Stain: A1-1 Vazquez-Giemsa A1-2 Vazquez-Giemsa A1-3 Vazquez-Giemsa C1-1 Vazquez-Giemsa IHC: B1-2 CD34 All controls show appropriate reactivity. All immunohistochemis try, in situ hybridization, and histochemical tests were developed by and are performed at the [facility], [address] [place] [address]. All tests reported here, except those addressing [...] OF INCREASED BLASTS OR ABNORMAL LYMPHOID POPULATIONS ([id number]). 3:15 PM EDT [facility] [...] Final [facility] [address] [place] [address] * Hepatitis C Antibody w/Reflex to HCV Quant PCR (01/07/2024 8:42 AM EDT) Hepatitis C Antibody Negative Negative 01/07/2024 10:13 AM EDT [facility] Blood Venous blood specimen / Unknown Venipuncture / Unknown 01/07/2024 8:42 AM EDT 01/07/2024 9:25 AM EDT us New Mckinney MD LAB BLOOD ORDERABLES Final Re sult [facility] [address] [place] [address] from Last 3 Months or Most Recently Relevant to Health Maintenance Insurance MEDICARE ANTH Care Teams Passenger Relations Representative Relationship Specialty Start Date End Date Jevon Vazquez MD [address] [place] [address] #1 #1 [place] [id number] PCP - General 03/23/22
--- OUTSIDE RECORDS SUMMARY | 2024-10-27 09:00 | XMS_ITS | Encounter Summary ---
Author Organization Healthcare Address [address] [place] [address] Care Team Providers Care Director Of Psychology Name Role Phone Jevon Vazquez MD Primary Care Provider [phone] Encounter Details Date Type Department Care Team (Latest Contact Info) Description 10/26/2024 Travel Social History Tobacco Use Types Packs/Day [...] Hematology/BMT and Cellular Therapy Program [address] [address] 10/29/2024 1:30 PM EDT Office Visit [facility]ology/BMT and Cellular Therapy Program [address] [address] Zonia Hoffman, LIVE STUDY MANAGER 800 [facility] [address] [place] [address] 10/29/2024 3:00 PM EDT Appointment [facility] [address] [place] [address] 10/30/2024 3:00 PM EDT Appointment [facility] [address] [place] [address] 10/31/2024 3:00 PM EDT Appointment [facility] 2 [address] [place] [address] 11/01/2024 3:00 PM EDT Appointment [facility] [address] [place] [address] 11/02/2024 3:00 PM EDT Appointment [facility] 1 [address] [place] [address] 2024 3:00 PM EDT Appointment [facility] [address] [place] [address] 11/04/2024 3:00 PM EDT Appointment [facility] 2 [address] [place] [address] 11/27/2024 12:30 PM EDT Clinical Support [facility]ology[facility]BMT [facility] Cellular Therapy Program [address] [address] 11/27/2024 1:00 PM EDT Office Visit [facility] Hematology/BMT and Cellular Therapy Program [address] [address] Zonia Hoffman, LIVE STUDY MANAGER 800 [facility] [address] [place] [phone] documented as of this encounter Visit Diagnoses Not on filedocumented in this encounter Additional Health Concerns Assessment Noted Time A fall risk assessment has been complete d for the patient 09/30/2024 9:33 AM EDT A Body Mass Index follow-up plan has been documented for the patient 05/28/2024 1:52 PM EST documented as of this encounter Care Teams Director Of Psychology Relationship Specialty Start Date End Date Jevon Vazquez MD [address] [place] [address] #1 #1 Julien JOSEP [id number] PCP - General 03/23/22 documented as of this encounter
--- OUTSIDE RECORDS SUMMARY | 2024-10-27 09:00 | XMS_ITS | Encounter Summary ---
Author Organization Healthcare Address [address] [place] [address] Care Team Providers Care Safe Expert Name Role Phone Jevon Vazquez MD Primary Care Provider [phone] Encounter Details Date Type Department Care Team [...] Hematology/BMT and Cellular Therapy Program [address] [address] 10/29/2024 1:30 PM EDT Office Visit [facility]ematology/BMT and Cellular Therapy Program [address] [address] Zonia Hoffman, ELECTROMECHANISMS DESIGN DRAFTER 800 [facility] [address] [place] [address] 10/29/2024 3:00 PM EDT Appointment [facility] [address] [place] [address] 10/30/2024 3:00 PM EDT Appointment [facility] [address] [place] [address] 10/31/2024 3:00 PM EDT Appointment [facility] [address] [place] [address] 11/01/2024 3:00 PM EDT Appointment [facility] [address] [place] [address] 11/02/2024 3:00 PM EDT Appointment [facility] 1 [address] [place] [address] 2024 3:00 PM EDT Appointment [facility] [address] [place] [address] 11/04/2024 3:00 PM EDT Appointment [facility] 2 [address] [place] [address] 11/27/2024 12:30 PM EDT Clinical Support [facility]ology/BMT and Cellular Therapy Program [address] [address] 11/27/2024 1:00 PM EDT Office Visit [facility] Hematology/BMT and Cellular Therapy Program [address] [address] Zonia Hoffman, ELECTROMECHANISMS DESIGN DRAFTER 800 [facility] [address] [place] [phone] documented as of this encounter Visit Diagnoses [...] Date End Date Jevon Vazquez MD [address] [place] [address] #1 #1 Julien JOSPE [address] PCP - General 03/23/22 documented as of this encounter
--- OUTSIDE RECORDS SUMMARY | 2024-10-27 09:00 | XMS_ITS | Encounter Summary ---
Author Organization [facility] Address [address] [place] [address] Care Team Providers Care Radiation Therapy Technologist Name Role Phone Jevon Vazquez MD Primary Care Provider [phone] Reason for Visit * Reason Comments Med Refill Encounter Details Date Type Department Care Team ([facility] Contact Info) Description 10/15/2024 Refill [facility] Hematology/BMT and Cellular Therapy Program [address] [phone] New Mckinney MD 800 [facility] [address] [place] [phone] Social History Tobacco Use Types Packs/Day Years [...] Upcoming Encounters Date Type Department Care Team ([facility] Contact Info) Description 10/29/2024 1:00 PM EDT Clinical Support [facility] Hematology/BMT and Cellular Therapy Program [address] [phone] 10/29/2024 1:30 PM EDT Office Visit [facility] Hematology/BMT and Cellular Therapy Program [address] [address] Zonia Hoffman, BEAN PICKER 800 [facility] [address] [place] [phone] 10/29/2024 3:00 PM EDT Appointment [facility] 2 [address] [place] [address] 10/30/2024 3:00 PM EDT Appointment [facility] 2 [address] [place] [address] 10/31/2024 3:00 PM EDT Appointment [facility] 2 [address] [place] [address] 11/01/2024 3:00 PM EDT Appointment [facility] 2 [address] [place] [address] 11/02/2024 3:00 PM EDT Appointment [facility] 1 [address] [place] [address] 2024 3:00 PM EDT Appointment [facility] 2 [address] [place] [address] 11/04/2024 3:00 PM EDT Appointment [facility] 2 [address] [place] [address] 11/27/2024 12:30 PM EDT Clinical Support [facility] Hematology/BMT and Cellular Therapy Program [address] [place] [address] 11/27/2024 1:00 PM EDT Office Visit [facility] Hematology/BMT and Cellular Therapy Program [address] [place] [address] Zonia Hoffman, BEAN PICKER 800 [facility] [address] [place] [phone] documented as of this encounter Visit Diagnoses Not on filedocumented in this encounter Additional Health Concerns Assessment Noted Time A fall risk assessment has been complete d for the patient 09/30/2024 9:33 AM EDT A Body Mass Index follow-up plan has been documented for the patient 05/28/2024 1:52 PM EST documented as of this encounter Care Teams Radiation Therapy Technologist Relationship Specialty Start Date End Date Jevon Vazquez MD [address] [place] [address] #1 #1 JOSEP [place] [id number] PCP - General 03/23/22 documented as of this encounter
--- OUTSIDE RECORDS SUMMARY | 2024-10-27 09:00 | XMS_ITS | Encounter Summary ---
Author Organization Healthcare Address [address] [place] [address] Care Team Providers Care Arbor End Mainspring Former Name Role Phone Jevon Vazquez MD Primary Care Provider [phone] Encounter Details Date Type Department Care Team [...] Hematology/BMT and Cellular Therapy Program [address] [address] 10/29/2024 1:30 PM EDT Office Visit [facility] Hematology/BMT and Cellular Therapy Program [address] [phone] Zonia Hoffman, DOOR FRAMER 800 [facility] [address] [place] [phone] 10/29/2024 3:00 PM EDT Appointment [facility] 2 [address] [place] [address] 10/30/2024 3:00 PM EDT Appointment [facility] 2 [address] [place] [address] 10/31/2024 3:00 PM EDT Appointment [facility] 2 [address] [place] [address] 11/01/2024 3:00 PM EDT Appointment [facility] 2 [address] [place] [address] 11/02/2024 3:00 PM EDT Appointment [facility] 1 [address] [place] [address] 2024 3:00 PM EDT Appointment [facility] 2 [address] [place] [address] 11/04/2024 3:00 PM EDT Appointment [facility] 2 [address] [place] [address] 11/27/2024 12:30 PM EDT Clinical Support [facility] Hematology/BMT and Cellular Therapy Program [address] [address] 11/27/2024 1:00 PM EDT Office Visit PAV Hematology/BMT and Cellular Therapy Program [address] [phone] Zonia Hoffman, DOOR FRAMER 800 [facility] [address] [place] [phone] documented as of this encounter Visit Diagnoses Not on filedocumented in this encounter Additional Health Concerns Assessment Noted Time A fall risk assessment has been complete d for the patient 09/30/2024 9:33 AM EDT A Body Mass Index follow-up plan has been documented for the patient 05/28/2024 1:52 PM EST documented as of this encounter Care Teams Arbor End Mainspring Former Relationship Specialty Start Date End Date Jevon Vazquez MD [address] [place] [address] #1 #1 Julien JOSEP [id number] PCP - General 03/23/22 documented as of this encounter
--- OUTSIDE RECORDS SUMMARY | 2024-10-27 09:00 | XMS_ITS | Encounter Summary ---
Author Organization Healthcare Address [address] [place] [address] Care Team Providers Care Stringed Instrument Tuner Name Role Phone Jevon Vazquez MD Primary Care Provider [phone] Encounter Details Date Type Department Care Team [...] Hematology/BMT and Cellular Therapy Program [address] [address] 10/29/2024 1:30 PM EDT Office Visit [facility] Hematology/BMT and Cellular Therapy Program [address] [address] Zonia Hoffman, REFINISHER 800 [facility] [address] [place] [phone] 10/29/2024 3:00 PM EDT Appointment [facility] 2 [address] [place] [address] 10/30/2024 3:00 PM EDT Appointment [facility] 2 [address] [place] [address] 10/31/2024 3:00 PM EDT Appointment [facility] 2 [address] [place] [address] 11/01/2024 3:00 PM EDT Appointment [facility] 2 [address] [place] [address] 11/02/2024 3:00 PM EDT Appointment [facility] 1 [address] [place] [address] 2024 3:00 PM EDT Appointment [facility] 2 [address] [place] [address] 11/04/2024 3:00 PM EDT Appointment [facility] 2 [address] [place] [address] 11/27/2024 12:30 PM EDT Clinical Support [facility] Hematology/BMT and Cellular Therapy Program [address] [address] 11/27/2024 1:00 PM EDT Office Visit PAV Hematology/BMT and Cellular Therapy Program [address] [address] Zonia Hoffman, REFINISHER 800 [facility] [address] [place] [phone] documented as of this encounter Visit Diagnoses Not on filedocumented in this encounter Additional Health Concerns Assessment Noted Time A fall risk assessment has been complete d for the patient 09/19/2024 8:38 AM EDT A Body Mass Index follow-up plan has been documented for the patient 05/28/2024 1:52 PM EST documented as of this encounter Care Teams Stringed Instrument Tuner Relationship Specialty Start Date End Date Jevon Vazquez MD [address] [place] [address] #1 #1 Julien JOSEP [id number] PCP - General 03/23/22 documented as of this encounter
--- OUTSIDE RECORDS SUMMARY | 2024-10-27 09:00 | XMS_ITS | Encounter Summary ---
Author Organization Healthcare Address [address] [place] [address] Care Team Providers Care Driver/Guide Name Role Phone Jevon Vazquez MD Primary Care Provider [phone] Encounter Details Date Type Department Care Team [...] Hematology/BMT and Cellular Therapy Program [address] [address] 10/29/2024 1:30 PM EDT Office Visit [facility] Hematology/BMT and Cellular Therapy Program [address] [address] Zonia Hoffman, HAZARDOUS MATERIALS DRIVER 800 [facility] [address] [place] [phone] 10/29/2024 3:00 PM EDT Appointment [facility] 2 [address] [place] [address] 10/30/2024 3:00 PM EDT Appointment [facility] 2 [address] [place] [address] 10/31/2024 3:00 PM EDT Appointment [facility] 2 [address] [place] [address] 11/01/2024 3:00 PM EDT Appointment [facility] 2 [address] [place] [address] 11/02/2024 3:00 PM EDT Appointment [facility] 1 [address] [place] [address] 2024 3:00 PM EDT Appointment [facility] 2 [address] [place] [address] 11/04/2024 3:00 PM EDT Appointment [facility] 2 [address] [place] [address] 11/27/2024 12:30 PM EDT Clinical Support [facility] CC Hematology/BMT and Cellular Therapy Program [address] [address] 11/27/2024 1:00 PM EDT Office Visit PAV Hematology/BMT and Cellular Therapy Program [address] [address] Zonia Hoffman, HAZARDOUS MATERIALS DRIVER 800 [facility] [address] [place] [phone] documented as of this encounter Visit Diagnoses Not on filedocumented in this encounter Additional Health Concerns Assessment Noted Time A fall risk assessment has been complete d for the patient 09/19/2024 8:38 AM EDT A Body Mass Index follow-up plan has been documented for the patient 05/28/2024 1:52 PM EST documented as of this encounter Care Teams Driver/Guide Relationship Specialty Start Date End Date Jevon Vazquez MD [address] [place] [address] #1 #1 Julien JOSEP [id number] PCP - General 03/23/22 documented as of this encounter
--- OUTSIDE RECORDS SUMMARY | 2024-10-27 09:00 | XMS_ITS | Encounter Summary ---
Author Organization Healthcare Address [address] [place] [address] Care Team Providers Care Line Assigner Name Role Phone Jevon Vazquez MD Primary Care Provider [phone] Encounter Details Date Type Department Care Team (Latest Contact Info) Description 10/24/2024 Travel Social History Tobacco Use Types Packs/Day [...] Hematology/BMT and Cellular Therapy Program [address] [address] 10/29/2024 1:30 PM EDT Office Visit [facility] Hematology/BMT and Cellular Therapy Program [address] [phone] Zonia Hoffman, SLURRY MAN 800 [facility] [address] [place] [phone] 10/29/2024 3:00 PM EDT Appointment [facility] 2 [address] [place] [address] 10/30/2024 3:00 PM EDT Appointment [facility] 2 [address] [place] [address] 10/31/2024 3:00 PM EDT Appointment [facility] 2 [address] [place] [address] 11/01/2024 3:00 PM EDT Appointment [facility] 2 [address] [place] [address] 11/02/2024 3:00 PM EDT Appointment [facility] 1 [address] [place] [address] 2024 3:00 PM EDT Appointment [facility] 2 [address] [place] [address] 11/04/2024 3:00 PM EDT Appointment [facility] 2 [address] [place] [address] 11/27/2024 12:30 PM EDT Clinical Support [facility] CC Hematology/BMT and Cellular Therapy Program [address] [address] 11/27/2024 1:00 PM EDT Office Visit PAV Hematology/BMT and Cellular Therapy Program [address] [address] Zonia Hoffman, SLURRY MAN 800 [facility] [address] [place] [phone] documented as of this encounter Visit Diagnoses Not on filedocumented in this encounter Additional Health Concerns Assessment Noted Time A fall risk assessment has been complete d for the patient 09/30/2024 9:33 AM EDT A Body Mass Index follow-up plan has been documented for the patient 05/28/2024 1:52 PM EST documented as of this encounter Care Teams Line Assigner Relationship Specialty Start Date End Date Jevon Vazquez MD [address] [place] [address] #1 #1 Julien JOSEP [id number] PCP - General 03/23/22 documented as of this encounter
[2024-10-27 09:02] VITALS: BMI 20.5
[2024-10-27 09:13] LABS: Hematocrit 28.7 % (37.0-47.0); Hemoglobin 9.8 g/dL (12.2-16.2); Immature Granulocytes % 0.3 %; Mean Corpuscular HGB Conc 34.1 g/dL (31.8-35.4); Mean Corpuscular Hemoglobin 35.5 pg (27.0-31.2); Mean Corpuscular Volume 104.0 fl (81-99); Nucleated Red Blood Cells % 0 %; Red Blood Count 2.76 M/mm3 (4.20-5.40); Red Cell Distribution Width-SD 85.6 fL; White Blood Count 3.0 K/mm3 (4.8-10.8)
[2024-10-27 09:17] LABS: Platelet Count 16 K/mm3 (142-424)
[2024-10-27 09:18] LABS: Alanine Aminotransferase 13 U/L (12-78); Albumin Level 3.7 g/dl (3.5-5.0); Albumin/Globulin Ratio 1.7 (1.1-1.8); Alkaline Phosphatase 40 U/L (38-126); Anion Gap 16.0 mEq/L (5-15); Aspartate Amino Transferase 36 U/L (14-36); Bilirubin,Total 0.5 mg/dl (0.2-1.3); Blood Urea Nitrogen 32 mg/dl (7-17); Calcium 9.9 mg/dl (8.4-10.2); Carbon Dioxide 22 mmol/L (22.0-30.0); Chloride 105 mmol/L (98-107); Creatinine Clearance Estimated 41 mL/min (50-200); Creatinine,Serum 1.10 mg/dl (0.52-1.04); Estimated Glomerular Filt Rate 49 ml/min (>60); GFR (African American) 59 ML/MIN (>60); Globulin 2.2 g/dL (1.3-3.2); Glucose 125 mg/dl (74-100); Potassium 4.0 mmoL/L (3.5-5.1); Sodium 139 mmol/L (136-145); Total Protein,Serum 5.9 g/dl (6.3-8.2)
[2024-10-27] MEDS: SODIUM CHLORIDE 0.9% 10ML FLUSH SYRINGE 10 ML IV (09:20)
== END 2024-10-27 09:15 | disposition home or self-care (01) ==
LOC: INF 08:54
PROVIDERS: PCP Family Medicine; Visit Provider Internal Medicine Medical Oncology
DX: C92.00 Acute myeloblastic leukemia, not having achieved remission (principal)
CPT/HCPCS: 36591; 80053; 85025; J1642

== ENCOUNTER 2024-10-29 09:04 | Outpatient (CLI) | payer MEDICARE, BC, SELFPAY ==
--- OUTSIDE RECORDS SUMMARY | 2024-09-19 07:30 | XMS_ITS | Encounter Summary ---
Author Organization [facility] Address [address] [place] [address] Care Team Providers Care Casting Machine Set Up Operator Name Role Phone Jevon Vazquez MD Primary Care Provider [phone] Reason for Visit * Reason Comments Nurse Visit Encounter Details Date Type Department Care Team ([facility] Contact Info) Description 09/19/2024 7:30 AM EDT Clinical Support [facility] Hematology/BMT and Cellular Therapy Program [address] [phone] Social History Tobacco Use Types Packs/Day Years [...] Upcoming Encounters Date Type Department Care Team ([facility] Contact Info) Description 11/13/2024 1:00 PM EDT Clinical Support [facility] Hematology/BMT and Cellular Therapy Program [address] [phone] 11/13/2024 1:30 PM EDT Office Visit [facility] Hematology/BMT and Cellular Therapy Program [address] [phone] Zonia Hoffman, SUPERVISOR LEAF SPRING FABRICATION 800 [facility] [address] [place] [address] 11/13/2024 3:00 PM EDT Appointment [facility] [address] [place] [address] 11/14/2024 1:00 PM EDT Appointment [facility] [address] [place] [address] 11/15/2024 1:00 PM EDT Appointment [facility] [address] [place] [address] 11/16/2024 1:00 PM EDT Appointment [facility] [address] [place] [address] 11/17/2024 3:00 PM EDT Appointment [facility] 2 [address] [place] [address] 11/18/2024 3:00 PM EDT Appointment [facility] 1 [address] [place] [address] 11/19/2024 2:00 PM EDT Appointment [facility] 2 [address] [place] [address] documented as of this encounter Visit Diagnoses Not on filedocumented in this encounter Additional Health Concerns Assessment Noted Time A fall risk assessment has been complete d for the patient 09/19/2024 8:38 AM EDT A Body Mass Index follow-up plan has been documented for the patient 05/28/2024 1:52 PM EST documented as of this encounter Care Teams Casting Machine Set Up Operator Relationship Specialty Start Date End Date Jevon Vazquez MD [address] [place] [address] #1 [address]1 [place] [address] PCP - General 03/23/22 documented as of this encounter
--- OUTSIDE RECORDS SUMMARY | 2024-09-19 09:30 | XMS_ITS | Encounter Summary ---
Author Organization Healthcare Address [address] [place] [address] Care Team Providers Care Donor Recruiter Name Role Phone Jevon Vazquez MD Primary Care Provider [phone] Reason for Visit * Reason Comments Follow-up Encounter Details Date Type Department Care Team (Latest Contact Info) Description 09/19/2024 9:30 AM EDT Clinical Support [facility] [address] [place] [address] Acute myeloid leukemia not having achieved remission [...] Upcoming Encounters Date Type Department Care Team ([facility] st Contact Info) Description 11/13/2024 1:00 PM EDT Clinical Support [facility] Therapy [facility] [address] [place] [address] 11/13/2024 1:30 PM EDT Office Visit [facility]BMT [facility] Cellular Therapy Program [address] [place] [address] Zonia Hoffman, QUALITY ASSURANCE MANAGER 800 [facility] [address] [place] [address] 11/13/2024 3:00 PM EDT Appointment [facility] [address] [place] [address] 11/14/2024 1:00 PM EDT Appointment [facility] [address] [place] [address] 11/15/2024 1:00 PM EDT Appointment [facility] [address] [place] [address] 11/16/2024 1:00 PM EDT Appointment [facility] [address] [place] [address] 11/17/2024 3:00 PM EDT Appointment [facility] Infusion Clinic 2 [address] [place] [address] 11/18/2024 3:00 PM EDT Appointment [facility] Infusion Clinic 1 [address] [place] [address] 11/19/2024 2:00 PM EDT Appointment [facility] Infusion Clinic 2 [address] [place] [address] documented as of this encounter Procedures Procedure Name Priority Date/Time Associated Diagnosis Comments PLATELET COUNT, BLOOD STAT 09/19/2024 10:04 AM EDT PREPARE PLATELETS Routine 09/19/2024 9:0 8 AM EDT documented in this encounter Results * (ABNORMAL) Platelet count (09/19/2024 10:04 AM EDT) Platelet Count 61(L) 155 - 369 10*3/uL LAB HEMATOLOGY METHOD 09/19/2024 10:19 AM EDT [facility] Blood Blood sample taken from central line / Unknown (Port) Long-term Catheter / Unknown 09/19/2024 10:04 AM EDT 09/19/2024 10:18 AM EDT us New Mckinney MD LAB BLOOD ORDERABLES Final Re sult [facility] [address] [place] [address] * Transfuse platelets, Irradiated (09/19/2024 10:02 AM EDT) us Lexi Ferraro APRN BLOOD TRANSFUSION ORDERABL ES Final Result * Prepare Leukocyte Reduced Platelets (09/19/2024 9:08 AM EDT) Product Code [id number] CH BLOO D BANK Dispense Status Transfused BLOOD BANK Blood Expiration Date [id number] BLOOD BANK Unit Number [id number] CH B LOOD BANK Product Blood Type 6200 BLOOD BANK Blood Type A+ CH BLOOD BANK us Provider Not In System BLOOD BANK PRODUCT ORD ERABLES Final Result BLOOD BANK [address] documented in this encounter Visit Diagnoses [...] documented as of this encounter Care Teams Donor Recruiter Relationship Specialty Start Date End Date Jevon Vazquez MD [address] [place] [address] #1 #1 [place] [id number] PCP - General 03/23/22 documented as of this encounter
--- OUTSIDE RECORDS SUMMARY | 2024-09-19 12:00 | XMS_ITS | Encounter Summary ---
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) Procedures Leukemia/Lymphoma - Immunophenotyping by Flow Cytometry eNw Mckinney MD [address] [facility] [address] [address] Phone: tel: fax: Referral ID Status Reason Start Date Expiration Date V isits Requested Visits Authorized [id number] Authorized 09/11/2024 03/13/2026 1 1 Encounter Details Date Type Department Care Team (Latest Contact Info) Description 09/19/2024 12:00 PM EDT Procedure Visit [facility] Hematology/BMT and Cellular Therapy Program [address] [address] Lexi Ferraro, RODDY 800 [facility] [address] [address] Acute myeloid leukemia not having [...] to surronding structures. Alternatives discussed: Delayed treatment Kremmling protocol: Procedure explained and questions answered to [...] Upcoming Encounters Date Type Department Care Team ([facility] st Contact Info) Description 11/13/2024 1:00 PM EDT Clinical Support [facility] Hematology/BMT and Cellular Therapy Program [address] [address] 11/13/2024 1:30 PM EDT Office Visit [facility] Hematology/BMT and Cellular Therapy Program [address] [phone] Zonia Hoffman APRN 800 [facility] [address] [place] [phone] 11/13/2024 3:00 PM EDT Appointment [facility] [address] [place] [address] 11/14/2024 1:00 PM EDT Appointment [facility] [address] [place] [address] 11/15/2024 1:00 PM EDT Appointment [facility] [address] [place] [address] 11/16/2024 1:00 PM EDT Appointment [facility] [address] [place] [address] 11/17/2024 3:00 PM EDT Appointment [facility] [address] [place] [address] 11/18/2024 3:00 PM EDT Appointment [facility] 1 [address] [place] [address] 11/19/2024 2:00 PM EDT Appointment [facility] [address] [place] [address] documented as of this encounter Procedures Procedure [...] to surronding structures. Alternatives discussed: Delayed treatment Kremmling protocol: Procedure explained and questions answered to [...] Type Bone Marrow 09/24/2024 2:37 PM EDT [facility] Clinical Indication Myelodysplastic Syndrome 09/24/2024 2:37 PM EDT [facility] Specimen Adequacy Adequate 025 2:37 PM EDT [facility] Chromosome Analysis Result Giemsa-banded metaphase cells from unstimulated bone marrow cultures showed a 46,XX[20] chromosome pattern. 09/24/2024 2:37 PM EDT [facility] Interpretation Normal female chromosome analysis. No clonal abnormalities were detected at current resolution. Clinical correlation is recommended. # cells counted = 20 # cells analyzed = 20 # cells karyotyped = 2 Band resolution: 450-525 09/24/2024 2:37 PM EDT [facility] Pathologist Signature Reviewed by: Corey Tejada 09/24/2024 2:37 PM EDT [facility] Bone Marrow Non-blood Collection / Unknown 09/19/2024 7:29 AM EDT 09/19/2024 12:35 PM EDT us New Mckinney MD LAB CYTOGENETICS ORDERABLES F inal Result [facility] [address] [place] [address] * Myeloid Focused Panel, 50 gene (09/19/2024 7:29 AM EDT) Interpretation The following two (2) genes, TP53 and DNMT3A, with persistent variants have been detected in this bone marrow specimen. The variant, p.[id number], in TP53 gene and the variant, p.[id number], in the RUNX 1 gene are not detectable at current cutoff and coverage established in this lab. Gene: TP53 Mutation: c.814G>A; p.Krd254Jqa Allele Frequency (%): 37% (45% Dec 2023) ID: [id number] Gene: DNMT3A Mutation: c.1522delC; p.[id number] 3 Allele Frequency (%): 36% (48% Dec 2023) Additional Details on Mutation Identified: Gene Transcript Genome Chrom Coordinate RefVar DNMT3A [id number] Hg19 2 [id number] delC TP53 NM_[id number] Hg19 17 [id number] G>A 09/29/2024 4:05 PM EDT [facility] Methodology The following 50 genes were [...] then sequenced on the Illumina NextSeq 2000 ([employer] [place]). A custom bioinformatics pipeline aligns [...] of hematologic malignancies. 09/29/2024 4:05 PM T [facility] Disclaimer This test was developed and its performance characteristics determined by the Clinical Molecular and Genomic Pathology Laboratory at the [facility]. It has not been cleared or approved [...] clinical laboratory testing. 09/29/2024 4:05 PM EDT [facility] Pathologist Signature Reviewed by: Corey Tejada 09/29/2024 4:05 PM [facility] Bone Marrow Specimen from bone marrow obtained by aspiration / Unknown Non-blood Collection / Unknown 09/19/2024 7:29 AM EDT 09/19/2024 12:03 PM EDT us New Mckinney MD LAB MOLECULAR DIAGNOSTICS ORD ERABLES Final Result [facility] [address] [place] [address], * Leukemia/Lymphoma - Immunophenotyping by Flow Cytometry (09/19/2024 7:29 AM EDT) Clinical Indication AML 09/22/2024 10:29 AM EDT [facility] Flow Cytometry Interpretation A. BONE MARROW FOR FLOW CYTOMETRY: - MIXED MARROW ELEMENTS WITH NO EVIDENCE OF INCREASED BLASTS OR ABNORMAL LYMPHOID POPULATIONS, SEE COMMENT. 09/22/2024 10:29 AM EDT [facility] Comments CD45/side scatter analysis shows a [...] surface light chains 09/22/2024 10:29 AM EDT [facility] Disclaimer This test was developed and its performance characteristics determined by the Immuno-Molecular Pathology Laboratory at the [facility]. It has not been cleared or approved [...] on the report. 09/22/2024 10:29 AM EDT [facility] Pathologist Signature Reviewed by: Lisandra Epstein MD 09/22/2024 10:29 AM EDT [facility] MRD Indicated Test Not Indicated 12/2024 10:29 AM EDT [facility] Bone Marrow Specimen from bone marrow obtained by aspiration / Unknown Non-blood Collection / Unknown 09/19/2024 7:29 AM EDT 09/19/2024 12:13 PM EDT us New Mckinney MD LAB FLOW CYTOMETRY ORDERABLES Final Result [facility] [address] [place] [address] * (ABNORMAL) CBC and differential (09/19/2024 7:29 AM EDT) WBC Count 2.70(L) 3.70 - 10.30 10*3/uL LAB HEMATOLOGY METHOD 09/19/2024 9:13 AM EDT [facility] RBC Count 1.86(L) 3.90 - 5.20 10*6/uL LAB HEMATOLOGY METHOD 09/19/2024 9:13 AM EDT [facility] HGB 7.1(L) 11.2 - 15.7 g/dL LAB HEMATOLOGY METHOD 09/19/2024 9:13 AM EDT [facility] HCT 21.5(L) 34.0 - 45.0 % LAB HEMATOLOGY METHOD 09/19/2024 9:13 AM EDT [facility] Platelet Count 14(LL) 155 - 369 10*3/uL LAB HEMATOLOGY METHOD 09/19/2024 9:13 AM EDT [facility] MCV 116(H) 79 - 98 fL LAB HEMATOLOGY METHOD 09/19/2024 9:13 AM EDT [facility] MCH 38.2(H) 26.0 - 32.0 pg LAB HEMATOLOGY METHOD 09/19/2024 9:13 AM EDT [facility] MCHC 33.0 30.7 - 35.5 g/dL LAB HEMATOLOGY METHOD 09/19/2024 9:13 AM EDT [facility] RDW 21.8(H) 11.5 - 14.5 % LAB HEMATOLOGY METHOD 09/19/2024 9:13 AM EDT [facility] MPV 13.5(H) 8.8 - 12.5 fL LAB HEMATOLOGY METHOD 09/19/2024 9:13 AM EDT [facility] nRBC 0.0 <=0.0 per 100 WBCs LAB HEMATOLOGY METHOD 09/19/2024 9:13 AM EDT [facility] Differential Type Automated LAB HEMATOLOGY METHOD 09/19/2024 9:13 AM EDT [facility] Neutrophils % 51 % LAB HEMATOLOGY METHOD 09/19/2024 9:13 AM EDT [facility] Lymphocytes % 41 % LAB HEMATOLOGY METHOD 09/19/2024 9:13 AM EDT [facility] Monocytes % 7 % LAB HEMATOLOGY METHOD 09/19/2024 9:13 AM EDT [facility] Eosinophils % 1 % LAB HEMATOLOGY METHOD 09/19/2024 9:13 AM EDT [facility] Basophils % 0 % LAB HEMATOLOGY METHOD 09/19/2024 9:13 AM EDT [facility] Immature Granulocytes % 0 % LAB HEMATOLOGY METHOD 09/19/2024 9:13 AM EDT [facility] Neutrophils Absolute 1.35(L) 1.60 - 6.10 10*3/uL LAB HEMATOLOGY METHOD 09/19/2024 9:13 AM EDT [facility] Lymphocytes Absolute 1.10(L) 1.20 - 3.90 10*3/uL LAB HEMATOLOGY METHOD 09/19/2024 9:13 AM EDT [facility] Monocytes Absolute 0.20(L) 0.30 - 0.90 10*3/uL LAB HEMATOLOGY METHOD 09/19/2024 9:13 AM EDT [facility] Eosinophils Absolute 0.03 0.00 - 0.50 10*3/uL LAB HEMATOLOGY METHOD 09/19/2024 9:13 AM EDT [facility] Basophils Absolute 0.01 0.00 - 0.10 10*3/uL LAB HEMATOLOGY METHOD 09/19/2024 9:13 AM EDT [facility] Immature Granulocytes Absolute 0.01 0.00 - 0.06 10*3/uL LAB HEMATOLOGY METHOD 09/19/2024 9:13 AM EDT [facility] Blood Blood sample taken from central line / Unknown (Port) Long-term Catheter / Unknown 09/19/2024 7:29 AM EDT 09/19/2024 8:08 AM EDT Narrative [facility] - 09/19/2024 9:13 AM EDT Therapeutic decision making should be based on absolute values, rather than percentages. us New Mckinney MD LAB BLOOD ORDERABLES Final Re sult [facility] [address] [place] [address] * Bone marrow exam (09/19/2024 7:29 AM EDT) Case Report Bone Marrow Case: [id number] Authorizing Provider: New Mckinney MD Collected: 09/19/2024 0729 Ordering Location: [facility] Hematology/BMT and Received: 09/19/2024 1216 Cellular Therapy Program Pathologist: Lisandra Epstein MD Specimens: A) - Bone Marrow Aspirate, right B) - Bone Marrow Biopsy, right C) - Peripheral Blood for Bone Marrow 3:15 PM EDT [facility] Cytogenetics Report, Addendum Chromosome Analysis Result Giemsa-banded metaphase cells from unstimulated bone marrow cultures showed a 46,XX[20] chromosome pattern. Interpretation Normal female chromosome analysis. No clonal abnormalities were detected at current resolution. Clinical correlation is recommended. 3:15 PM EDT [facility] Addendum electronically signed by Lisandra Epstein MD on 09/24/2024 at 1630 EDT Addendum Interpretation The following two (2) genes, TP53 and DNMT3A, with persistent variants have been detected in this bone marrow specimen. The variant, p.[id number], in TP53 gene and the variant, p.[id number], in the RUNX 1 gene are not detectable at current cutoff and coverage established in this lab. Gene: TP53 Mutation: c.814G>A; p.Cfv537Chp Allele Frequency (%): 37% (45% Dec 2023) ID: [id number] Gene: DNMT3A Mutation: c.1522delC; p.[id number] 43 Allele Frequency (%): 36% (48% Dec 2023) Additional Details on Mutation Identified: 3:15 PM EDT [facility] Addendum electronically signed by Lisandra Epstein MD on 09/30/2024 at 1515 EDT Final Diagnosis PERIPHERAL BLOOD AND BONE MARROW, RIGHT POSTERIOR ILIAC CREST, (ASPIRATE SMEAR, AND CORE BIOPSY): - HYPOCELLULAR BONE MARROW WITH MARKEDLY DECREASED MEGAKARYOCYTES; NO SIGNIFICANT DYSPOIESIS OR INCREASE IN BLASTS. 3:15 PM EDT [facility] at 1453 EDT Clinical Information AML 09/14 3:15 PM EDT [facility] CBC and Differential PERIPHERAL BLOOD: [...] blasts are not seen. 3:15 PM EDT [facility] Bone Marrow Differential BONE MARROW DIFFERENTIAL: 200 cells Normal Patient Neutrophils 15-50 34 Metamyelocytes 4-19 3 Myelocytes 1-18 10 Promyelocytes 1-8 1 Blasts 0-2 1 Monocytes 0-5 4 Erythroid 16-38 22 Lymphocytes 3-24 13 Eosinophils 0-6 8 Basophils 0-2 0 Plasma cells 0-4 4 Other 3:15 PM EDT [facility] Bone Marrow Aspirate and Biopsy [...] Bone trabeculae are unremarkable. 3:15 PM EDT [facility] Special and Immunohistochemical Stains Special Stain: A1-1 Vazquez-Giemsa A1-2 Vazquez-Giemsa A1-3 Vazquez-Giemsa C1-1 Vazquez-Giemsa IHC: B1-2 CD34 All controls show appropriate reactivity. All immunohistochemis try, in situ hybridization, and histochemical tests were developed by and are performed at the [facility], [address] [place] [address]. All tests reported here, except those addressing [...] negativity on decalcified specimens. 3:15 PM T [facility] Flow Cytometry Interpretation MIXED MARROW ELEMENTS WITH NO EVIDENCE OF INCREASED BLASTS OR ABNORMAL LYMPHOID POPULATIONS ([id number]). 3:15 PM EDT [facility] CYTOGENETICS/MOLECULA R INTERPRETATION Correlation with cytogenetic/molec ular analysis is suggested. 3:15 PM T [facility] Gross Description B. RIGHT A single specimen is received in formalin labeled bone marrow biopsy right posterior iliac crest and consists of 2 piece(s) of red/white tissue measuring 2.1/0.3 cm in length 0.2 cm in diameter. The specimen is submitted in to Histology for decalcification and routine processing. Cold Time: <1m 3:15 PM T [facility] Note: A resident was involved in the service. I attest I examined the relevant preparations for the specimens and confirmed the diagnosis or interpretation. 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
--- OUTSIDE RECORDS SUMMARY | 2024-09-30 09:00 | XMS_ITS | Encounter Summary ---
Author Organization Healthcare Address [address] [place] [address] Care Team Providers Care General Supervisor Name Role Phone Jevon Vazquez MD Primary Care Provider [phone] Reason for Visit * Reason Comments Labs Only Encounter Details Date Type Department Care Team ([facility] Contact Info) Description 09/30/2024 9:00 AM EDT Clinical Support [facility] Hematology/BMT and Cellular Therapy Program [address] [place] [phone] Jyoti Kemp Acute myeloid leukemia not having [...] Team ([facility] Contact Info) Description 11/13/2024 1:00 PM EDT Clinical Support [facility] Hematology/BMT and Cellular Therapy Program [address] [phone] 11/13/2024 1:30 PM EDT Office Visit [facility] Hematology/BMT and Cellular Therapy Program [address] [phone] Zonia Hoffman, HAND STRIPER 800 [facility] [address] [place] [phone] 11/13/2024 3:00 PM EDT Appointment [facility] [address] [place] [address] 11/14/2024 1:00 PM EDT Appointment [facility] [address] [place] [address] 11/15/2024 1:00 PM EDT Appointment [facility] [address] [place] [address] 11/16/2024 1:00 PM EDT Appointment [facility] [address] [place] [address] 11/17/2024 3:00 PM EDT Appointment [facility] 2 [address] [place] [address] 11/18/2024 3:00 PM EDT Appointment [facility] 1 [address] [place] [address] 11/19/2024 2:00 PM EDT Appointment [facility] 2 [address] [place] [address] documented as of this encounter Procedures Procedure [...] - 99 mg/dL 09/30/2024 10:20 AM EDT [facility] BUN, Plasma 21 8 - 23 mg/dL 09/30/2024 10:20 AM EDT [facility] Creatinine, Plasma 1.00 0.60 - 1.10 mg/dL 09/30/2024 10:20 AM EDT [facility] BUN/Creatinine Ratio 21 09/30/2024 10:20 AM EDT [facility] Sodium, Plasma 137 136 - 145 mmol/L 09/30/2024 10:20 AM EDT [facility] Potassium, Plasma 3.8 3.6 - 4.9 mmol/L 09/30/2024 10:20 AM EDT [facility] Chloride, Plasma 107 97 - 107 mmol/L 09/30/2024 10:20 AM EDT [facility] CO2, Plasma 22 22 - 29 mmol/L 09/30/2024 10:20 AM EDT [facility] Anion Gap 8 6 - 16 mmol/L 09/30/2024 10:20 AM EDT [facility] Total Calcium, Plasma 9.8 8.9 - 10.2 mg/dL 09/30/2024 10:20 AM EDT [facility] Total Protein 5.9(L) 6.3 - 7.9 g/dL 09/30/2024 10:20 AM EDT [facility] Albumin, Plasma 3.8 3.5 - 5.2 g/dL 09/30/2024 10:20 AM EDT [facility] AST, Plasma 28 10 - 35 U/L 09/30/2024 10:20 AM EDT [facility] ALT, Plasma 14 10 - 35 U/L 09/30/2024 10:20 AM EDT [facility] Alkaline Phosphatase, Plasma 34(L) 46 - 142 U/L 09/30/2024 10:20 AM EDT [facility] Total Bilirubin, Plasma 0.3 0.2 - 1.1 mg/dL 09/30/2024 10:20 AM EDT [facility] eGFRcr 59.6 mL/min/1.7 3m*2 09/30/2024 10:20 AM EDT [facility] Comment:Reported eGFRcr in m L/min/1.73m2 is based the CKD-EPI 2020 equation that does not use a race coefficient. Blood Venous blood specimen / Unknown (Port) Long-term Catheter / Unknown 09/30/2024 9:11 AM EDT 09/30/2024 9:50 AM EDT us Zonia Hardy [employer] HAND STRIPER LAB BLOOD ORDERABLES Final Res ult [facility] [address] [place] [address] * (ABNORMAL) CBC and Differential (09/30/2024 9:11 AM EDT) WBC Count 3.34(L) 3.70 - 10.30 10*3/uL LAB HEMATOLOGY METHOD 09/30/2024 11:07 AM EDT [facility] RBC Count 1.91(L) 3.90 - 5.20 10*6/uL LAB HEMATOLOGY METHOD 09/30/2024 11:07 AM EDT [facility] HGB 7.7(L) 11.2 - 15.7 g/dL LAB HEMATOLOGY METHOD 09/30/2024 11:07 AM EDT [facility] HCT 22.8(L) 34.0 - 45.0 % LAB HEMATOLOGY METHOD 09/30/2024 11:07 AM EDT [facility] Platelet Count 17(LL) 155 - 369 10*3/uL LAB HEMATOLOGY METHOD 09/30/2024 11:07 AM EDT [facility] MCV 119(H) 79 - 98 fL LAB HEMATOLOGY METHOD 09/30/2024 11:07 AM EDT [facility] MCH 40.3(H) 26.0 - 32.0 pg LAB HEMATOLOGY METHOD 09/30/2024 11:07 AM EDT [facility] MCHC 33.8 30.7 - 35.5 g/dL LAB HEMATOLOGY METHOD 09/30/2024 11:07 AM EDT [facility] RDW 18.7(H) 11.5 - 14.5 % LAB HEMATOLOGY METHOD 09/30/2024 11:07 AM EDT [facility] MPV 11.1 8.8 - 12.5 fL LAB HEMATOLOGY METHOD 09/30/2024 11:07 AM EDT [facility] nRBC 0.0 <=0.0 per 100 WBCs LAB HEMATOLOGY METHOD 09/30/2024 11:07 AM EDT [facility] Differential Type Automated LAB HEMATOLOGY METHOD 09/30/2024 11:07 AM EDT [facility] Neutrophils % 65 % LAB HEMATOLOGY METHOD 09/30/2024 11:07 AM EDT [facility] Lymphocytes % 26 % LAB HEMATOLOGY METHOD 09/30/2024 11:07 AM EDT [facility] Monocytes % 7 % LAB HEMATOLOGY METHOD 09/30/2024 11:07 AM EDT [facility] Eosinophils % 1 % LAB HEMATOLOGY METHOD 09/30/2024 11:07 AM EDT [facility] Basophils % 1 % LAB HEMATOLOGY METHOD 09/30/2024 11:07 AM EDT [facility] Immature Granulocytes % 0 % LAB HEMATOLOGY METHOD 09/30/2024 11:07 AM EDT [facility] Neutrophils Absolute 2.17 1.60 - 6.10 10*3/uL LAB HEMATOLOGY METHOD 09/30/2024 11:07 AM EDT [facility] Lymphocytes Absolute 0.87(L) 1.20 - 3.90 10*3/uL LAB HEMATOLOGY METHOD 09/30/2024 11:07 AM EDT [facility] Monocytes Absolute 0.24(L) 0.30 - 0.90 10*3/uL LAB HEMATOLOGY METHOD 09/30/2024 11:07 AM EDT [facility] Eosinophils Absolute 0.03 0.00 - 0.50 10*3/uL LAB HEMATOLOGY METHOD 09/30/2024 11:07 AM EDT [facility] Basophils Absolute 0.02 0.00 - 0.10 10*3/uL LAB HEMATOLOGY METHOD 09/30/2024 11:07 AM EDT [facility] Immature Granulocytes Absolute 0.01 0.00 - 0.06 10*3/uL LAB HEMATOLOGY METHOD 09/30/2024 11:07 AM EDT [facility] Blood Venous blood specimen / Unknown (Port) Long-term Catheter / Unknown 09/30/2024 9:11 AM EDT 09/30/2024 9:34 AM EDT [facility] - 09/30/2024 11:07 AM EDT Therapeutic decision making should be based on absolute values, rather than percentages. us Zonia Hoffman HAND STRIPER LAB BLOOD ORDERABLES Final Res ult [facility] [address] [place] [address] documented in this encounter Visit Diagnoses Diagnosis [...] as of this encounter Care Teams General Supervisor Relationship Specialty Start Date End Date Jevon Vazquez MD [address] [place] [address] #1 #1 [place] [address] PCP - General 03/23/22 documented as of this encounter
--- OUTSIDE RECORDS SUMMARY | 2024-09-30 09:30 | XMS_ITS | Encounter Summary ---
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 female. Referring Physician: Zonia Hoffman, CLINICAL RESEARCH SCIENTIST 800 [facility] [address] [address] Primary Care Provider: Jevon Vazquez MD Chief [...] k/??L. 12/2023- seen by Dr. Manzano in [facility] for evaluation of anemia and lymphocytosis. 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 Next generation sequencing: Abnormal: TP53 (c.814G>A; p.[id number]) frequency 45%, DMNT3A (c.1522delC; p.[id number]) frequency 48%, RUNX1 (c.336_338delGCC; p.Alo238kxw) frequency 35% Azacitidine + Venetoclax Cycle 1: [...] - Continue local lab checks MWF at [facility] Allogenic transplant planning. 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 However, given her older age > 70, she would benefit from a geriatric BMT program and will make referrals should she be interested. Expected pancytopenia related to chemotherapy/AML. Check CBC x 3 times/week at [facility] Labs reviewed today, Hgb 7.7 , [...] HOSPITAL HEMATOLOGY/BMT AND CELLULAR THERAPY PROGRAM 800 [facility] [address] 40 minutes was spent on this encounter; [...] Upcoming Encounters Date Type Department Care Team ([facility] st Contact Info) Description 11/13/2024 1:00 PM EDT Clinical Support [facility] Hematology/BMT and Cellular Therapy Program 750 [facility], [address] [place] [address] [place] [address] 11/13/2024 1:30 PM EDT Office Visit [facility] Hematology/BMT and Cellular Therapy Program [address] [place] [address] Zonia Hoffman, CLINICAL RESEARCH SCIENTIST 800 [facility] [address] [place] [address] 11/13/2024 3:00 PM EDT Appointment [facility] [address] [place] [address] 11/14/2024 1:00 PM EDT Appointment [facility] [address] [place] [address] 11/15/2024 1:00 PM EDT Appointment [facility] [address] [place] [address] 11/16/2024 1:00 PM EDT Appointment [facility] [address] [place] [address] 11/17/2024 3:00 PM EDT Appointment [facility] 2 [address] [place] [address] 11/18/2024 3:00 PM EDT Appointment [facility] 1 [address] [place] [address] 11/19/2024 2:00 PM EDT Appointment [facility] 2 [address] [place] [address] documented as of this encounter Results * (ABNORMAL) Comprehensive Metabolic Panel, Plasma (09/30/2024 9:11 AM EDT) [facility] Glucose, Plasma 135(H) 74 - 99 mg/dL 09/30/2024 10:20 AM EDT [facility] BUN, Plasma 21 8 - 23 mg/dL 09/30/2024 10:20 AM EDT [facility] Creatinine, Plasma 1.00 0.60 - 1.10 mg/dL 09/30/2024 10:20 AM EDT [facility] BUN/Creatinine Ratio 21 09/30/2024 10:20 AM EDT [facility] Sodium, Plasma 137 136 - 145 mmol/L 09/30/2024 10:20 AM EDT [facility] Potassium, Plasma 3.8 3.6 - 4.9 mmol/L 09/30/2024 10:20 AM EDT [facility] Chloride, Plasma 107 97 - 107 mmol/L 09/30/2024 10:20 AM EDT [facility] CO2, Plasma 22 22 - 29 mmol/L 09/30/2024 10:20 AM EDT [facility] Anion Gap 8 6 - 16 mmol/L 09/30/2024 10:20 AM EDT [facility] Total Calcium, Plasma 9.8 8.9 - 10.2 mg/dL 09/30/2024 10:20 AM EDT [facility] Total Protein 5.9(L) 6.3 - 7.9 g/dL 09/30/2024 10:20 AM EDT [facility] Albumin, Plasma 3.8 3.5 - 5.2 g/dL 09/30/2024 10:20 AM EDT [facility] AST, Plasma 28 10 - 35 U/L 09/30/2024 10:20 AM EDT [facility] ALT, Plasma 14 10 - 35 U/L 09/30/2024 10:20 AM EDT [facility] Alkaline Phosphatase, Plasma 34(L) 46 - 142 U/L 09/30/2024 10:20 AM EDT [facility] Total Bilirubin, Plasma 0.3 0.2 - 1.1 mg/dL 09/30/2024 10:20 AM EDT [facility] eGFRcr 59.6 mL/min/1.7 3m*2 09/30/2024 10:20 AM EDT [facility] Comment:Reported eGFRcr in m L/min/1.73m2 is based the CKD-EPI 2020 equation that does not use a race coefficient. Blood Venous blood specimen / Unknown (Port) Long-term Catheter / Unknown 09/30/2024 9:11 AM EDT 09/30/2024 9:50 AM EDT us Zonia Hoffman APRN LAB BLOOD ORDERABLES Final Res ult [facility] [address] [place] [address] * (ABNORMAL) CBC and Differential (09/30/2024 9:11 AM EDT) WBC Count 3.34(L) 3.70 - 10.30 10*3/uL LAB HEMATOLOGY METHOD 09/30/2024 11:07 AM EDT [facility] RBC Count 1.91(L) 3.90 - 5.20 10*6/uL LAB HEMATOLOGY METHOD 09/30/2024 11:07 AM EDT [facility] HGB 7.7(L) 11.2 - 15.7 g/dL LAB HEMATOLOGY METHOD 09/30/2024 11:07 AM EDT [facility] HCT 22.8(L) 34.0 - 45.0 % LAB HEMATOLOGY METHOD 09/30/2024 11:07 AM EDT [facility] Platelet Count 17(LL) 155 - 369 10*3/uL LAB HEMATOLOGY METHOD 09/30/2024 11:07 AM EDT [facility] MCV 119(H) 79 - 98 fL LAB HEMATOLOGY METHOD 09/30/2024 11:07 AM EDT [facility] MCH 40.3(H) 26.0 - 32.0 pg LAB HEMATOLOGY METHOD 09/30/2024 11:07 AM EDT [facility] MCHC 33.8 30.7 - 35.5 g/dL LAB HEMATOLOGY METHOD 09/30/2024 11:07 AM EDT [facility] RDW 18.7(H) 11.5 - 14.5 % LAB HEMATOLOGY METHOD 09/30/2024 11:07 AM EDT [facility] MPV 11.1 8.8 - 12.5 fL LAB HEMATOLOGY METHOD 09/30/2024 11:07 AM EDT [facility] nRBC 0.0 <=0.0 per 100 WBCs LAB HEMATOLOGY METHOD 09/30/2024 11:07 AM EDT [facility] Differential Type Automated LAB HEMATOLOGY METHOD 09/30/2024 11:07 AM EDT [facility] Neutrophils % 65 % LAB HEMATOLOGY METHOD 09/30/2024 11:07 AM EDT [facility] Lymphocytes % 26 % LAB HEMATOLOGY METHOD 09/30/2024 11:07 AM EDT [facility] Monocytes % 7 % LAB HEMATOLOGY METHOD 09/30/2024 11:07 AM EDT [facility] Eosinophils % 1 % LAB HEMATOLOGY METHOD 09/30/2024 11:07 AM EDT [facility] Basophils % 1 % LAB HEMATOLOGY METHOD 09/30/2024 11:07 AM EDT [facility] Immature Granulocytes % 0 % LAB HEMATOLOGY METHOD 09/30/2024 11:07 AM EDT [facility] Neutrophils Absolute 2.17 1.60 - 6.10 10*3/uL LAB HEMATOLOGY METHOD 09/30/2024 11:07 AM EDT [facility] Lymphocytes Absolute 0.87(L) 1.20 - 3.90 10*3/uL LAB HEMATOLOGY METHOD 09/30/2024 11:07 AM EDT [facility] Monocytes Absolute 0.24(L) 0.30 - 0.90 10*3/uL LAB HEMATOLOGY METHOD 09/30/2024 11:07 AM EDT [facility] Eosinophils Absolute 0.03 0.00 - 0.50 10*3/uL LAB HEMATOLOGY METHOD 09/30/2024 11:07 AM EDT [facility] Basophils Absolute 0.02 0.00 - 0.10 10*3/uL LAB HEMATOLOGY METHOD 09/30/2024 11:07 AM EDT [facility] Immature Granulocytes Absolute 0.01 0.00 - 0.06 10*3/uL LAB HEMATOLOGY METHOD 09/30/2024 11:07 AM EDT [facility] Blood Venous blood specimen / Unknown (Port) Long-term Catheter / Unknown 09/30/2024 9:11 AM EDT 09/30/2024 9:34 AM EDT Narrative [facility] - 09/30/2024 11:07 AM EDT Therapeutic decision making should be based on absolute values, rather than percentages. us Zonia Hoffman APRN LAB BLOOD ORDERABLES Final Res ult [facility] [address] [place] [address] documented in this encounter Visit Diagnoses Diagnosis [...] documented as of this encounter Care Teams Zinc Plate Cutter Relationship Specialty Start Date End Date Jevon Vazquez MD [address] [place] [address] #1 #1 [place] [id number] PCP - General 03/23/22 documented as of this encounter
--- OUTSIDE RECORDS SUMMARY | 2024-10-29 09:07 | XMS_ITS | Encounter Summary ---
Author Organization Healthcare Address [address] [place] [address] Care Team Providers Care Roller Picker Name Role Phone Jevon Vazquez MD Primary Care Provider [phone] Encounter Details Date Type Department Care Team [...] Care Team (Late st Contact Info) Description 11/13/2024 1:00 PM EDT Clinical Support [facility] Hematology/BMT and Cellular Therapy Program [address] [address] 11/13/2024 1:30 PM EDT Office Visit [facility] CC Hematology/BMT and Cellular Therapy Program [address] [address] Zonia Hoffman, RODDY 800 [facility] [address] [place] [address] 11/13/2024 3:00 PM EDT Appointment P[facility] H Infusion [address] [place] [address] 11/14/2024 1:00 PM EDT Appointment [facility] Infusion [address] [place] [address] 11/15/2024 1:00 PM EDT Appointment [facility] H Infusion [address] [place] [address] 11/16/2024 1:00 PM EDT Appointment [facility] Infusion [address] [place] [address] 11/17/2024 3:00 PM EDT Appointment [facility] 2 [address] [place] [address] 11/18/2024 3:00 PM EDT Appointment [facility] 1 [address] [place] [address] 11/19/2024 2:00 PM EDT Appointment [facility] 2 [address] [place] [address] documented as of this encounter Visit Diagnoses Not on filedocumented in this encounter Additional Health Concerns Assessment Noted Time A fall risk assessment has been complete d for the patient 07/30/2024 8:29 AM EDT A Body Mass Index follow-up plan has been documented for the patient 05/28/2024 1:52 PM EST documented as of this encounter Care Teams Roller Picker Relationship Specialty Start Date End Date Jevon Vazquez MD [address] [place] [address] #1 #1 Julien JOSEP [id number] PCP - General 03/23/22 documented as of this encounter
--- OUTSIDE RECORDS SUMMARY | 2024-10-29 09:07 | XMS_ITS | Encounter Summary ---
Author Organization Healthcare Address [address] [place] [address] Care Team Providers Care Dining Room Supervisor Name Role Phone Jevon Vazquez MD Primary Care Provider [phone] Encounter Details Date Type Department Care Team [...] Hematology/BMT and Cellular Therapy Program [address] [address] 11/13/2024 1:30 PM EDT Office Visit [facility] CC Hematology/BMT and Cellular Therapy Program [address] [phone] Zonia Hoffman, RODDY 800 [facility] [address] [place] [address] 11/13/2024 3:00 PM EDT Appointment [facility] H Infusion 800 [place] [address] 11/14/2024 1:00 PM EDT Appointment [facility] Infusion [address] [place] [address] 11/15/2024 1:00 PM EDT Appointment [facility] Infusion [address] [place] [address] 11/16/2024 1:00 PM EDT Appointment [facility] H Infusion [address] [place] [address] 11/17/2024 3:00 PM EDT Appointment [facility] 2 [address] [place] [address] 11/18/2024 3:00 PM EDT Appointment [facility] 1 [address] [place] [address] 11/19/2024 2:00 PM EDT Appointment [facility] 2 [address] [place] [address] documented as of this encounter Visit Diagnoses Not on filedocumented in this encounter Additional Health Concerns Assessment Noted Time A fall risk assessment has been complete d for the patient 09/30/2024 9:33 AM EDT A Body Mass Index follow-up plan has been documented for the patient 05/28/2024 1:52 PM EST documented as of this encounter Care Teams Dining Room Supervisor Relationship Specialty Start Date End Date Jevon Vazquez MD [address] [place] [address] #1 #1 Julien JOSEP [id number] PCP - General 03/23/22 documented as of this encounter
--- OUTSIDE RECORDS SUMMARY | 2024-10-29 09:07 | XMS_ITS | Encounter Summary ---
Author Organization Healthcare Address [address] [place] [address] Care Team Providers Care Sewing Line Baler Name Role Phone Jevon Vazquez MD Primary Care Provider [phone] Encounter Details Date Type Department Care Team [...] Hematology/BMT and Cellular Therapy Program [address] [address] 11/13/2024 1:30 PM EDT Office Visit [facility] CC Hematology/BMT and Cellular Therapy Program [address] [address] Zonia Hoffman, RODDY 800 [facility] [address] [place] [address] 11/13/2024 3:00 PM EDT Appointment [facility] H Infusion [address] [place] [address] 11/14/2024 1:00 PM EDT Appointment [facility] Infusion [address] [place] [address] 11/15/2024 1:00 PM EDT Appointment [facility] H Infusion [address] [place] [address] 11/16/2024 1:00 PM EDT Appointment [facility] Infusion [address] [place] [address] 11/17/2024 3:00 PM EDT Appointment [facility] 2 [address] [place] [address] 11/18/2024 3:00 PM EDT Appointment [facility] 1 [address] [place] [address] 11/19/2024 2:00 PM EDT Appointment [facility] 2 [address] [place] [address] documented as of this encounter Visit Diagnoses Not on filedocumented in this encounter Additional Health Concerns Assessment Noted Time A fall risk assessment has been complete d for the patient 07/30/2024 8:29 AM EDT A Body Mass Index follow-up plan has been documented for the patient 05/28/2024 1:52 PM EST documented as of this encounter Care Teams Sewing Line Baler Relationship Specialty Start Date End Date Jevon Vazquez MD [address] [place] [address] #1 #1 Julien JOSEP [id number] PCP - General 03/23/22 documented as of this encounter
--- OUTSIDE RECORDS SUMMARY | 2024-10-29 09:07 | XMS_ITS | Encounter Summary ---
Author Organization Healthcare Address [address] [place] [address] Care Team Providers Care Offset Lithographic Press Setter Name Role Phone Jevon Vazquez MD Primary Care Provider [phone] Encounter Details Date Type Department Care Team ([facility] [address] Contact Info) Description 09/19/2024 Orders Only P[facility] CC Hematology/BMT and Cellular Therapy Program [address] [phone] 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, RN [facility] Social History [...] [place] [address] Contact Info) Description 11/13/2024 1:00 PM EDT Clinical Support P[facility] CC Hematology/BMT and Cellular Therapy Program [address] [address] 11/13/2024 1:30 PM EDT Office Visit P[facility] CC Hematology/BMT and Cellular Therapy Program [address] [phone] Zonia Hoffman, TELESALES SPECIALIST 800 [facility] [address] [place] [address] 11/13/2024 3:00 PM EDT Appointment [facility] H Infusion 800 [place] [address] 11/14/2024 1:00 PM EDT Appointment [facility] Infusion [address] [place] [address] 11/15/2024 1:00 PM EDT Appointment [facility] Infusion [address] [place] [address] 11/16/2024 1:00 PM EDT Appointment [facility] Infusion [address] [place] [address] 11/17/2024 3:00 PM EDT Appointment [facility] 2 [address] [place] [address] 11/18/2024 3:00 PM EDT Appointment [facility] 1 [address] [place] [address] 11/19/2024 2:00 PM EDT Appointment [facility] 2 [address] [place] [address] documented as of this encounter Visit Diagnoses Not on filedocumented in this encounter Additional Health Concerns Assessment Noted Time A fall risk assessment has been complete d for the patient 09/19/2024 8:38 AM EDT A Body Mass Index follow-up plan has been documented for the patient 05/28/2024 1:52 PM EST documented as of this encounter Care Teams Offset Lithographic Press Setter Relationship Specialty Start Date End Date Jevon Vazquez MD [address] [place] [address] #1 #1 [place] [address] PCP - General 03/23/22 documented as of this encounter
--- OUTSIDE RECORDS SUMMARY | 2024-10-29 09:07 | XMS_ITS | Encounter Summary ---
Author Organization [facility] Address [address] [place] [address] Care Team Providers Care Director Clinical Pharmacology Name Role Phone Jevon Vazquez MD Primary Care Provider [phone] Encounter Details Date Type Department Care Team ([facility] Contact Info) Description 09/15/2024 Telephone P[facility] CC Hematology/BMT and Cellular Therapy Program [address] [phone] Zonia Hoffman, STAFF PSYCHOLOGIST 800 [facility] [address] [place] [phone] Social History Tobacco Use Types Packs/Day Years [...] Hematology/BMT and Cellular Therapy Program [address] [phone] 11/13/2024 1:30 PM EDT Office Visit P[facility] CC Hematology/BMT and Cellular Therapy Program [address] [phone] Zonia Hoffman, STAFF PSYCHOLOGIST 800 [facility] [address] [place] [address] 11/13/2024 3:00 PM EDT Appointment [facility] H Infusion [address] [place] [address] 11/14/2024 1:00 PM EDT Appointment [facility] H Infusion [address] [place] [address] 11/15/2024 1:00 PM EDT Appointment [facility] Infusion [address] [place] [address] 11/16/2024 1:00 PM EDT Appointment [facility] Infusion [address] [place] [address] 11/17/2024 3:00 PM EDT Appointment [facility] 2 [address] [place] [address] 11/18/2024 3:00 PM EDT Appointment [facility] 1 [address] [place] [address] 11/19/2024 2:00 PM EDT Appointment [facility] 2 [address] [place] [address] documented as of this encounter Visit Diagnoses Not on filedocumented in this encounter Additional Health Concerns Assessment Noted Time A fall risk assessment has been complete d for the patient 07/30/2024 8:29 AM EDT A Body Mass Index follow-up plan has been documented for the patient 05/28/2024 1:52 PM EST documented as of this encounter Care Teams Director Clinical Pharmacology Relationship Specialty Start Date End Date Jevon Vazquez MD [address] [place] [address] #1 #1 Julien JOSEP [id number] PCP - General 03/23/22 documented as of this encounter
--- OUTSIDE RECORDS SUMMARY | 2024-10-29 09:07 | XMS_ITS ---
Author Organization [facility] Address [address] [place] [address] Care Team Providers Care Marine Service Station Attendant Name Role Phone Jevon Vazquez MD Primary Care Provider [phone] Active Problems Problem Noted Date Diagnosed Date [...]
--- OUTSIDE RECORDS SUMMARY | 2024-10-29 09:07 | XMS_ITS | Encounter Summary ---
Author Organization Healthcare Address [address] [place] [address] Care Team Providers Care Coremaker Apprentice Name Role Phone Jevon Vazquez MD Primary Care Provider [phone] Encounter Details Date Type Department Care Team [...] Hematology/BMT and Cellular Therapy Program [address] [address] 11/13/2024 1:30 PM EDT Office Visit P[facility] CC Hematology/BMT and Cellular Therapy Program [address] [address] Zonia Hoffman, RODDY 800 [facility] [address] [place] [address] 11/13/2024 3:00 PM EDT Appointment [facility] H Infusion [address] [place] [address] 11/14/2024 1:00 PM EDT Appointment [facility] Infusion [address] [place] [address] 11/15/2024 1:00 PM EDT Appointment [facility] Infusion [address] [place] [address] 11/16/2024 1:00 PM EDT Appointment [facility] Infusion [address] [place] [address] 11/17/2024 3:00 PM EDT Appointment [facility] 2 [address] [place] [address] 11/18/2024 3:00 PM EDT Appointment [facility] 1 [address] [place] [address] 11/19/2024 2:00 PM EDT Appointment [facility] 2 [address] [place] [address] documented as of this encounter Visit Diagnoses Not on filedocumented in this encounter Additional Health Concerns Assessment Noted Time A fall risk assessment has been complete d for the patient 09/19/2024 8:38 AM EDT A Body Mass Index follow-up plan has been documented for the patient 05/28/2024 1:52 PM EST documented as of this encounter Care Teams Coremaker Apprentice Relationship Specialty Start Date End Date Jevon Vazquez MD [address] [place] [address] #1 #1 Julien JOSEP [id number] PCP - General 03/23/22 documented as of this encounter
--- OUTSIDE RECORDS SUMMARY | 2024-10-29 09:07 | XMS_ITS | Encounter Summary ---
Author Organization Healthcare Address [address] [place] [address] Care Team Providers Care Engraver Optical Frames Name Role Phone Jevon Vazquez MD Primary Care Provider [phone] Encounter Details Date Type Department Care Team [...] Hematology/BMT and Cellular Therapy Program [address] [address] 11/13/2024 1:30 PM EDT Office Visit [facility] Hematology/BMT and Cellular Therapy Program [address] [address] Zonia Hoffman, RODDY 800 [facility] [address] [place] [address] 11/13/2024 3:00 PM EDT Appointment [facility] In[facility] 800 [place] [address] 11/14/2024 1:00 PM EDT Appointment [facility] [address] [place] [address] 11/15/2024 1:00 PM EDT Appointment [facility] 800 [place] [address] 11/16/2024 1:00 PM EDT Appointment [facility] 800 [place] [address] 11/17/2024 3:00 PM EDT Appointment [facility] 2 744 [place] [address] 11/18/2024 3:00 PM EDT Appointment [facility] 1 744 [place] [address] 11/19/2024 2:00 PM EDT Appointment [facility] 2 744 [place] [address] documented as of this encounter Visit Diagnoses Not on filedocumented in this encounter Additional Health Concerns Assessment Noted Time A fall risk assessment has been complete d for the patient 07/30/2024 8:29 AM EDT A Body Mass Index follow-up plan has been documented for the patient 05/28/2024 1:52 PM EST documented as of this encounter Care Teams Engraver Optical Frames Relationship Specialty Start Date End Date Jevon Vazquez MD [address] [place] [address] #1 #1 Julien JOSEP [id number] PCP - General 03/23/22 documented as of this encounter
--- OUTSIDE RECORDS SUMMARY | 2024-10-29 09:07 | XMS_ITS | Encounter Summary ---
Author Organization [facility] Address [address] [place] [address] Care Team Providers Care Ribbon Cleaner Name Role Phone Jevon Vazquez MD Primary Care Provider [phone] Reason for Visit * Reason Comments Med Refill Encounter Details Date Type Department [facility] Description 01/30/2024 Refill [facility] Hematology/BMT and Cellular Therapy Program [address] [phone] New Mckinney MD 800 [facility] [address] [place] [address] Social History Tobacco Use Types Packs/Day Years [...] Upcoming Encounters Date Type Department Care Team ([facility] Description 11/13/2024 1:00 PM EDT Clinical Support [facility] Hematology/BMT and Cellular Therapy Program [address] [place] [address] 11/13/2024 1:30 PM EDT Office Visit [facility] Hematology/BMT and Cellular Therapy Program [address] [address] Zonia Hoffman, BIOMETRICS ANALYST 800 [facility] [address] [place] [address] 11/13/2024 3:00 PM EDT Appointment [facility] Infusion 800 [place] [address] 11/14/2024 1:00 PM EDT Appointment [facility] 800 [place] [address] 11/15/2024 1:00 PM EDT Appointment [facility] 800 [place] [address] 11/16/2024 1:00 PM EDT Appointment [facility] 800 [place] [address] 11/17/2024 3:00 PM EDT Appointment [facility] 2 744 [place] [address] 11/18/2024 3:00 PM EDT Appointment [facility] 1 744 [place] [address] 11/19/2024 2:00 PM EDT Appointment [facility] 2 744 [place] [address] documented as of this encounter Visit Diagnoses Not on filedocumented in this encounter Additional Health Concerns Assessment Noted Time A fall risk assessment has been complete d for the patient 01/11/2024 9:16 AM EDT A Body Mass Index follow-up plan has been documented for the patient 01/21/2024 6:16 AM EDT documented as of this encounter Care Teams Ribbon Cleaner Relationship Specialty Start Date End Date Jevon Vazquez MD [address] [place] [address] #1 #1 [place] [id number] PCP - General 03/23/22 documented as of this encounter
--- OUTSIDE RECORDS SUMMARY | 2024-10-29 09:07 | XMS_ITS | Encounter Summary ---
Author Organization Healthcare Address [address] [place] [address] Care Team Providers Care Bonded Structures Repairer Name Role Phone Jevon Vazquez MD Primary Care Provider [phone] Encounter Details Date Type Department Care Team [...] Hematology/BMT and Cellular Therapy Program [address] [address] 11/13/2024 1:30 PM EDT Office Visit [facility] Hematology/BMT and Cellular Therapy Program [address] [address] Zonia Hoffman, RODDY [address] [facility] [address] [place] [address] 11/13/2024 3:00 PM EDT Appointment [facility]fusion 800 [place] [address] 11/14/2024 1:00 PM EDT Appointment [facility] [address] [place] [address] 11/15/2024 1:00 PM EDT Appointment [facility] 800 [place] [address] 11/16/2024 1:00 PM EDT Appointment [facility] 800 [place] [address] 11/17/2024 3:00 PM EDT Appointment [facility] 2 744 [place] [address] 11/18/2024 3:00 PM EDT Appointment [facility] 1 [address] [place] [address] 11/19/2024 2:00 PM EDT Appointment [facility] 2 [address] [place] [address] documented as of this encounter Visit Diagnoses Not on filedocumented in this encounter Additional Health Concerns Assessment Noted Time A fall risk assessment has been complete d for the patient 09/30/2024 9:33 AM EDT A Body Mass Index follow-up plan has been documented for the patient 05/28/2024 1:52 PM EST documented as of this encounter Care Teams Bonded Structures Repairer Relationship Specialty Start Date End Date Jevon Vazquez MD [address] [place] [address] #1 #1 Julien JOSEP [id number] PCP - General 03/23/22 documented as of this encounter
--- OUTSIDE RECORDS SUMMARY | 2024-10-29 09:07 | XMS_ITS | Encounter Summary ---
Author Organization Healthcare Address [address] [place] [address] Care Team Providers Care Infection Control Specialist Name Role Phone Jevon Vazquez MD Primary Care Provider [phone] Encounter Details Date Type Department Care Team [...] Hematology/BMT and Cellular Therapy Program [address] [address] 11/13/2024 1:30 PM EDT Office Visit [facility] Hematology/BMT and Cellular Therapy Program [address] [address] Zonia Hoffman, RODDY 800 [facility] [address] [place] [address] 11/13/2024 3:00 PM EDT Appointment [facility] Infusion 800 [place] [address] 11/14/2024 1:00 PM EDT Appointment [facility] [address] [place] [address] 11/15/2024 1:00 PM EDT Appointment [facility] 800 [place] [address] 11/16/2024 1:00 PM EDT Appointment [facility] 800 [place] [address] 11/17/2024 3:00 PM EDT Appointment [facility] 2 744 [place] [address] 11/18/2024 3:00 PM EDT Appointment [facility] 1 744 [place] [address] 11/19/2024 2:00 PM EDT Appointment [facility] 2 [address]44 [place] [address] documented as of this encounter Visit Diagnoses Not on filedocumented in this encounter Additional Health Concerns Assessment Noted Time A fall risk assessment has been complete d for the patient 07/30/2024 8:29 AM EDT A Body Mass Index follow-up plan has been documented for the patient 05/28/2024 1:52 PM EST documented as of this encounter Care Teams Infection Control Specialist Relationship Specialty Start Date End Date Jevon Vazquez MD [address] [place] [address] #1 #1 Julien JOSEP [id number] PCP - General 03/23/22 documented as of this encounter
--- OUTSIDE RECORDS SUMMARY | 2024-10-29 09:07 | XMS_ITS | Encounter Summary ---
Author Organization [facility] Address [address] [place] [address] Care Team Providers Care Scoop Machine Operator Name Role Phone Jevon Vazquez MD Primary Care Provider [phone] Encounter Details Date Type Department Care Team ([facility] Contact Info) Description 09/19/2024 Telephone [facility] Hematology/BMT and Cellular Therapy Program [address] [place] [address] Romana Richmond RN [facility] Social History Tobacco Use Types [...] Encounters Date Type Department Care Team ([facility] Contact Info) Description 11/13/2024 1:00 PM EDT Clinical Support [facility] Hematology/BMT and Cellular Therapy Program [address] [place] [address] 11/13/2024 1:30 PM EDT Office Visit [facility] Hematology/BMT and Cellular Therapy Program 750 [facility] [address] [place] [address] Zonia Hoffman, INSPECTOR BICYCLE 800 [facility] [address] [place] [address] 11/13/2024 3:00 PM EDT Appointment [facility] Infusion 800 [place] [address] 11/14/2024 1:00 PM EDT Appointment [facility] Infusion 800 [place] [address] 11/15/2024 1:00 PM EDT Appointment [facility] Infusion 800 [place] [address] 11/16/2024 1:00 PM EDT Appointment [facility] [address] [place] [address] 11/17/2024 3:00 PM EDT Appointment [facility] 2 [address] [place] [address] 11/18/2024 3:00 PM EDT Appointment [facility] 1 [address] [place] [address] 11/19/2024 2:00 PM EDT Appointment [facility] 2 [address] [place] [address] documented as of this encounter Visit Diagnoses Not on filedocumented in this encounter Additional Health Concerns Assessment Noted Time A fall risk assessment has been complete d for the patient 09/19/2024 8:38 AM EDT A Body Mass Index follow-up plan has been documented for the patient 05/28/2024 1:52 PM EST documented as of this encounter Care Teams Scoop Machine Operator Relationship Specialty Start Date End Date Jevon Vazquez MD [address] [place] [address] #1 #1 [place] [id number] PCP - General 03/23/22 documented as of this encounter
--- OUTSIDE RECORDS SUMMARY | 2024-10-29 09:07 | XMS_ITS | Encounter Summary ---
Author Organization [facility] Address [address] [place] [address] Care Team Providers Care Lead Java Programmer Name Role Phone Jevon Vazquez MD Primary Care Provider [phone] Reason for Visit * Reason Comments Med Refill Encounter Details Date Type Department Care Team ([facility] Contact Info) Description 09/12/2024 Refill [facility] CC Hematology/BMT and Cellular Therapy Program [address] [phone] [place]in[place] MD 800 [facility] [address] [place] [address] Social History Tobacco Use Types Packs/Day Years [...] Hematology/BMT and Cellular Therapy Program [address] [address] 11/13/2024 1:30 PM EDT Office Visit [facility] CC Hematology/BMT and Cellular Therapy Program [address] [address] Zonia Hoffman, ARM REST BUILDER 800 [facility] [address] [place] [address] 11/13/2024 3:00 PM EDT Appointment [facility] Infusion 800 [place] [address] 11/14/2024 1:00 PM EDT Appointment [facility]fusion [address] [place] [address] 11/15/2024 1:00 PM EDT Appointment [facility]fusion [address] [place] [address] 11/16/2024 1:00 PM EDT Appointment [facility]fusion 800 [place] [address] 11/17/2024 3:00 PM EDT Appointment [facility] 2 744 [place] [address] 11/18/2024 3:00 PM EDT Appointment [facility] 1 [address] [place] [address] 11/19/2024 2:00 PM EDT Appointment [facility] 2 [address] [place] [address] documented as of this encounter Visit Diagnoses Not on filedocumented in this encounter Additional Health Concerns Assessment Noted Time A fall risk assessment has been complete d for the patient 07/30/2024 8:29 AM EDT A Body Mass Index follow-up plan has been documented for the patient 05/28/2024 1:52 PM EST documented as of this encounter Care Teams Lead Java Programmer Relationship Specialty Start Date End Date Jevon Vazquez MD [address] [place] [address] #1 #1 [place]ienJOSEP [id number] PCP - General 03/23/22 documented as of this encounter
--- OUTSIDE RECORDS SUMMARY | 2024-10-29 09:07 | XMS_ITS | Encounter Summary ---
Author Organization Healthcare Address [address] [place] [address] Care Team Providers Care Agronomy Internship Name Role Phone Jevon Vazquez MD Primary Care Provider [phone] Encounter Details Date Type Department Care Team [...] Hematology/BMT and Cellular Therapy Program [address] [address] 11/13/2024 1:30 PM EDT Office Visit [facility] Hematology/BMT and Cellular Therapy Program [address] [address] Zonia Hoffman, RODDY 800 [facility] [address] [place] [address] 11/13/2024 3:00 PM EDT Appointment [facility] Infusion 800 [place] [address] 11/14/2024 1:00 PM EDT Appointment [facility] Infusion [address] [place] [address] 11/15/2024 1:00 PM EDT Appointment [facility]fusion 800 [place] [address] 11/16/2024 1:00 PM EDT Appointment [facility] Infusion 800 [place] [address] 11/17/2024 3:00 PM EDT Appointment [facility] 2 744 [place] [address] 11/18/2024 3:00 PM EDT Appointment [facility] 1 744 [place] [address] 11/19/2024 2:00 PM EDT Appointment [facility] 2 744 [place] [address] documented as of this encounter Visit Diagnoses Not on filedocumented in this encounter Additional Health Concerns Assessment Noted Time A fall risk assessment has been complete d for the patient 07/30/2024 8:29 AM EDT A Body Mass Index follow-up plan has been documented for the patient 05/28/2024 1:52 PM EST documented as of this encounter Care Teams Agronomy Internship Relationship Specialty Start Date End Date Jevon Vazquez MD [address] [place] [address] #1 #1 Julien JOSEP [id number] PCP - General 03/23/22 documented as of this encounter
--- OUTSIDE RECORDS SUMMARY | 2024-10-29 09:08 | XMS_ITS | Clinical Summary ---
Author Organization [facility] Address [address] [place] [address] Phone Care Team Providers Care Traffic Warehouse Supervisor Name Role Phone Jevon Vazquez MD Primary Care Provider [phone] Allergies Active Allergy Reactions Criticality Noted Date [...] L4-5 LAMINECTOMY; Surgeon: Ivan Bartholomew MD; Location: [facility]; Service: Spine Medical History Medical [...] 5.6 % 11/14/2022 2:57 PM EDT PREFERRED [employer], [employer] Est. Avg Glucose 148 mg/dL 11/14/2022 2:57 PM EDT [employer], [facility] Blood VENOUS BLOOD / Unknown Venipuncture / Unknown 11/11/2022 3:46 PM EDT 11/11/2022 3:55 PM EDT Narrative [facility] [employer] [facility] - 11/14/2022 2:57 PM EDT REFERENCE RANGE: Normal: 4.0-5.6% Pre-diabetes: 5.7-6.4% Provisional diagnosis of diabetes: >6.4% Hgb F>10% and anything which shortens red cell survival, such as hemolytic anemia, or unstable hemoglobin variants such as HbSS, HbSC, or HbCC, will lower the HbA1c value associated with a given level of glycemic control. us Lexi aMloney DO CHEMISTRY ORDERABLES Final R esult [facility] [employer] [facility] [address] [facility] , [place] [address] * (ABNORMAL) BASIC METABOLIC PANEL (11/11/2022 3:46 PM EDT) Sodium 136 136 - 145 mmol/L 11/11/2022 4:11 PM EDT [facility] Potassium 3.8 3.5 - 5.0 mmol/L 11/11/2022 4:11 PM EDT [facility] Chloride 102 98 - 107 mmol/L 11/11/2022 4:11 PM EDT [facility] Total CO2 24 22 - 29 mmol/L 11/11/2022 4:11 PM EDT [facility] Anion Gap 10 7 - 16 mmol/L 11/11/2022 4:11 PM EDT [facility] Calcium 10.1 8.8 - 10.4 mg/dL 11/11/2022 4:11 PM EDT [facility] Glucose Lvl 147(H) 82 - 100 mg/dL 11/11/2022 4:11 PM EDT [facility] BUN 15 8 - 23 mg/dL 11/11/2022 4:11 PM EDT [facility] Creatinine 0.82 0.51 - 1.30 mg/dL 11/11/2022 4:11 PM EDT [facility] eGFR (CKD-EPIcr 2020) 76 >=60 mL/min/1.7 3 m2 11/11/2022 4:11 PM EDT [facility] Comment:Estimated GFR was ca lculated using the CKD-EPIcr (2020) equation refit without race. The equation is recommended by the National Kidney Foundation - [place] [employer] of Nephrology Task Force. Blood VENOUS BLOOD / Unknown Venipuncture / Unknown 11/11/2022 3:46 PM EDT 11/11/2022 3:54 PM EDT us Leona Hanna DO CHEMISTRY ORDERABLES Final Res ult [facility] [address] [place] [address] * DX BONE DENSITY AXIAL SKELETON (07/25/2022 9:14 AM EDT) Anatomical Region Laterality Modality Dexa Scan 07/25/2022 Narrative 07/25/2022 3:45 PM EDT Indication: The patient is a female age 65 or older who requires a bone density assessment. Study was performed on [employer] 5. Bone Density: Region BMD T-score Z-score [...] Relevant to Health Maintenance Insurance [place] [address] MEDICARE SUPPLEMENT MEDICARE [place] PART A AND B Member Subscriber Plan / Payer (Ef fective 2016-Present) Name:Ashly Hernández Member ID:[id number] Relation to Subscriber:Self Name:Ashly Hernández Subscriber ID:[id number] Payer ID:Not on file Group ID:Not on file Type:Not on file Address: [address] MEDICARE SUPPLEMENT MEDICARE [place] PART A & [place] [phone] [place] A [place] B Member Subscriber Plan / Payer (Ef fective 2016-Present) Name:Ashly Hernández Member ID:[id number] Relation to Subscriber:Self Name:Ashly Hernández Subscriber ID:[id number] Payer ID:Not on file Group ID:Not on file Type:Not on file Address: [address] MEDICARE SUPPLEMENT [employer] MEDICARE [place] PART A AND B [address] MEDICARE SUPPLEMENT Advance Directives For more information, please contact: [phone] * Full Code (Latest Code Status on File) Date Activated Date Inactivated Comments 11/14/2022 6:53 PM 11/16/2022 7:37 PM * Full Code Date Activated Date Inactivated Comments 11/12/2022 5:17 AM 11/14/2022 6:47 PM Care Teams Traffic Warehouse Supervisor Relationship Specialty Start Date End Date Jevon Vazquez MD [address] [place] [address] PCP - General Family Medicine 11/10/22
--- OUTSIDE RECORDS SUMMARY | 2024-10-29 09:08 | XMS_ITS | Encounter Summary ---
Author Organization Healthcare Address [address] [place] [address] Care Team Providers Care Biometrics Specialist Name Role Phone Jevon Vazquez MD Primary Care Provider [phone] Encounter Details Date Type Department Care Team [...] Hematology/BMT and Cellular Therapy Program [address] [address] 11/13/2024 1:30 PM EDT Office Visit [facility] Hematology/BMT and Cellular Therapy Program [address] [address] Zonia Hoffman, RODDY 800 [facility] [address] [place] [address] 11/13/2024 3:00 PM EDT Appointment [facility] Infusion 800 [place] [address] 11/14/2024 1:00 PM EDT Appointment [facility] [address] [place] [address] 11/15/2024 1:00 PM EDT Appointment [facility] 800 [place] [address] 11/16/2024 1:00 PM EDT Appointment [facility] [address] [place] [address] 11/17/2024 3:00 PM EDT Appointment [facility] 2 744 [place] [address] 11/18/2024 3:00 PM EDT Appointment [facility] 1 [address] [place] [address] 11/19/2024 2:00 PM EDT Appointment [facility] 2 [address] [place] [address] documented as of this encounter Visit Diagnoses Not on filedocumented in this encounter Additional Health Concerns Assessment Noted Time A fall risk assessment has been complete d for the patient 07/30/2024 8:29 AM EDT A Body Mass Index follow-up plan has been documented for the patient 05/28/2024 1:52 PM EST documented as of this encounter Care Teams Biometrics Specialist Relationship Specialty Start Date End Date Jevon Vazquez MD [address] [place] [address] #1 #1 Julien JOSEP [id number] PCP - General 03/23/22 documented as of this encounter
--- OUTSIDE RECORDS SUMMARY | 2024-10-29 09:08 | XMS_ITS | Encounter Summary ---
Author Organization Healthcare Address [address] [place] [address] Care Team Providers Care Family Services Manager Name Role Phone Jevon Vazquez MD Primary Care Provider [phone] Encounter Details Date Type Department Care Team [...] Hematology/BMT and Cellular Therapy Program [address] [address] 11/13/2024 1:30 PM EDT Office Visit [facility] Hematology/BMT and Cellular Therapy Program [address] [address] Zonia Hoffman, RODDY 800 [facility] [address] [place] [address] 11/13/2024 3:00 PM EDT Appointment [facility] Infusion 800 [place] [address] 11/14/2024 1:00 PM EDT Appointment [facility] [address] [place] [address] 11/15/2024 1:00 PM EDT Appointment [facility] [address] [place] [address] 11/16/2024 1:00 PM EDT Appointment [facility] [address] [place] [address] 11/17/2024 3:00 PM EDT Appointment [facility] 2 [address] [place] [address] 11/18/2024 3:00 PM EDT Appointment [facility] 1 [address] [place] [address] 11/19/2024 2:00 PM EDT Appointment [facility] 2 [address] [place] [address] documented as of this encounter Visit Diagnoses Not on filedocumented in this encounter Additional Health Concerns Assessment Noted Time A fall risk assessment has been complete d for the patient 07/30/2024 8:29 AM EDT A Body Mass Index follow-up plan has been documented for the patient 05/28/2024 1:52 PM EST documented as of this encounter Care Teams Family Services Manager Relationship Specialty Start Date End Date Jevon Vazquez MD [address] [place] [address] #1 #1 Julien JOSEP [address] PCP - General 03/23/22 documented as of this encounter
--- OUTSIDE RECORDS SUMMARY | 2024-10-29 09:08 | XMS_ITS | Encounter Summary ---
Author Organization Healthcare Address [address] [place] [address] Care Team Providers Care Signal Maintenance Technician Name Role Phone Jevon Vazquez MD Primary Care Provider [phone] Encounter Details Date Type Department Care Team ([facility] st Contact Info) Description 10/27/2024 Telephone PAV CC Hematology/BMT and Cellular Therapy Program [address] [address] Zonia Hoffman, WASTEWATER ANALYST 800 [facility] [address] [place] [address] Social History Tobacco Use Types Packs/Day Years [...] Telephone Encounter - 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, RN - 10/28/2024 11:20 AM EDT RN spoke with pt and discussed labs and delaying treatment. Told her I was waiting to confirm with and her new appts will be on inFreeDA. She verbalizes understanding. * Telephone Encounter - Lisseth Cobb - 10/27/2024 1:42 PM EDT Per the nurse: we are waiting on [employer] to fax her lab results to confirm her levels are too low for treatment and then confirm with Dr. Billy documented in this encounter Plan of Treatment Upcoming Encounters Date Type Department Care Team (Late st Contact Info) Description 11/13/2024 1:00 PM EDT Clinical Support PAV Hematology/BMT and Cellular Therapy Program [address] [address] 11/13/2024 1:30 PM EDT Office Visit PAV Hematology/BMT and Cellular Therapy Program [address] [address] Zonia Hoffman, WASTEWATER ANALYST 800 [facility] [address] [place] [address] 11/13/2024 3:00 PM EDT Appointment P[facility] H Infusion 800 [place] [address] 11/14/2024 1:00 PM EDT Appointment [facility] Infusion 800 [place] [address] 11/15/2024 1:00 PM EDT Appointment [facility] Infusion 800 [place] [address] 11/16/2024 1:00 PM EDT Appointment [facility] Infusion [address] [place] [address] 11/17/2024 3:00 PM EDT Appointment [facility] 2 744 [place] [address] 11/18/2024 3:00 PM EDT Appointment [facility] 1 744 [place] [address] 11/19/2024 2:00 PM EDT Appointment [facility] 2 744 [place] [address] documented as of this encounter Visit Diagnoses Not on filedocumented in this encounter Additional Health Concerns Assessment Noted Time A fall risk assessment has been complete d for the patient 09/30/2024 9:33 AM EDT A Body Mass Index follow-up plan has been documented for the patient 05/28/2024 1:52 PM EST documented as of this encounter Care Teams Signal Maintenance Technician Relationship Specialty Start Date End Date Jevon Vazquez MD [address] [place] [address] #1 #1 [place] [address] PCP - General 03/23/22 documented as of this encounter
--- OUTSIDE RECORDS SUMMARY | 2024-10-29 09:08 | XMS_ITS | Encounter Summary ---
Author Organization Healthcare Address [address] [place] [address] Care Team Providers Care Game Artist Name Role Phone Jevon Vazquez MD Primary Care Provider [phone] Encounter Details Date Type Department Care Team [...] Hematology/BMT and Cellular Therapy Program [address] [address] 11/13/2024 1:30 PM EDT Office Visit PAV CC Hematology/BMT and Cellular Therapy Program [address] [address] Zonia Hoffman, RODDY 800 [facility] [address] [place] [address] 11/13/2024 3:00 PM EDT Appointment [facility] H Infusion 800 [place] [address] 11/14/2024 1:00 PM EDT Appointment [facility] H Infusion [address] [place] [address] 11/15/2024 1:00 PM EDT Appointment [facility] H Infusion 800 [place] [address] 11/16/2024 1:00 PM EDT Appointment [facility] H Infusion 800 [place] [address] 11/17/2024 3:00 PM EDT Appointment [facility] 2 744 [place] [address] 11/18/2024 3:00 PM EDT Appointment [facility] 1 [address] [place] [address] 11/19/2024 2:00 PM EDT Appointment [facility] 2 [address] [place] [address] documented as of this encounter Visit Diagnoses Not on filedocumented in this encounter Additional Health Concerns Assessment Noted Time A fall risk assessment has been complete d for the patient 09/19/2024 8:38 AM EDT A Body Mass Index follow-up plan has been documented for the patient 05/28/2024 1:52 PM EST documented as of this encounter Care Teams Game Artist Relationship Specialty Start Date End Date Jevon Vazquez MD [address] [place] [address] #1 #1 [place] JOSEP [address] PCP - General 03/23/22 documented as of this encounter
--- OUTSIDE RECORDS SUMMARY | 2024-10-29 09:08 | XMS_ITS | Encounter Summary ---
Author Organization Healthcare Address [address] [place] [address] Care Team Providers Care Biological Science Technician Fish Name Role Phone Jevon Vazquez MD Primary Care Provider [phone] Encounter Details Date Type Department Care Team ([facility] st Contact Info) Description 10/13/2024 Telephone PAV CC Hematology/BMT and Cellular Therapy Program [address] [address] Zonia Hoffman, ASSOCIATE DEAN OF STUDENTS 800 [facility] [address] [place] [address] Social History Tobacco Use Types Packs/Day Years [...] needs to be delayed again Callback number: [phone] documented in this encounter Plan of Treatment Upcoming Encounters Date Type Department Care Team ([facility] st Contact Info) Description 11/13/2024 1:00 PM EDT Clinical Support PAV CC Hematology/BMT and Cellular Therapy Program [address] [address] 11/13/2024 1:30 PM EDT Office Visit P[facility] CC Hematology/BMT and Cellular Therapy Program [address] [address] Zonia Hoffman, ASSOCIATE DEAN OF STUDENTS 800 [facility] [address] [place] [address] 11/13/2024 3:00 PM EDT Appointment [facility] H Infusion 800 [place] [address] 11/14/2024 1:00 PM EDT Appointment [facility] H Infusion [address] [place] [address] 11/15/2024 1:00 PM EDT Appointment [facility] H Infusion [address] [place] [address] 11/16/2024 1:00 PM EDT Appointment [facility] H Infusion [address] [place] [address] 11/17/2024 3:00 PM EDT Appointment [facility] 2 [address] [place] [address] 11/18/2024 3:00 PM EDT Appointment [facility] 1 [address] [place] [address] 11/19/2024 2:00 PM EDT Appointment [facility] 2 [address] [place] [address] documented as of this encounter Visit Diagnoses Not on filedocumented in this encounter Additional Health Concerns Assessment Noted Time A fall risk assessment has been complete d for the patient 09/30/2024 9:33 AM EDT A Body Mass Index follow-up plan has been documented for the patient 05/28/2024 1:52 PM EST documented as of this encounter Care Teams Biological Science Technician Fish Relationship Specialty Start Date End Date Jevon Vazquez MD [address] [place] [address] #1 #1 [place] [address] PCP - General 03/23/22 documented as of this encounter
--- OUTSIDE RECORDS SUMMARY | 2024-10-29 09:08 | XMS_ITS | Clinical Summary ---
Author Organization [facility] Address [address] [place] [address] Care Team Providers Care Spacecraft Systems Engineer Name Role Phone David Vazquez Primary Care Provider [phone] Allergies No known active allergies Medications atorvastatin [...] series) 2025 Medical Devices Implanted Type Area Soil Biology Teacher Device Identifier Shelf Expiration Date Model / Serial / Lot Mis Ply Scr 6.5x50mm - [id number] Implanted:Qty : 1 on 01/30/2023 by Ivan Bartholomew MD at [facility] [place] Screw N/A: Spine Lumbar [employer] [id number] / / Mis Ply Scr 6.5x45mm - [id number] Implanted:Qty : 3 on 01/30/2023 by Ivan Bartholomew MD at [facility] [place] Screw N/A: Spine Lumbar [employer] [id number] / / Reline Mas Reduction Screw 7.5x45 - [id number] Implanted:Qty : 2 on 01/30/2023 by Ivan Bartholomew MD at [facility] [place] Screw N/A: Spine Lumbar [employer] [id number] / / Grft Dbm Vesuvius Putty 5cc - [id number] Implanted:Qty : 1 on 01/30/2023 by Ivan Bartholomew MD at [facility] [place] [employer] [id number] 04/20/2025 [id number] P / [id number] / Putty I-Factor 5.0cc - [id number] Implanted:Qty : 1 on 01/30/2023 by Ivan Bartholomew MD at [facility] [place] N/A: Spine Lumbar [employer] 03/15/2025 [id number] / / [id number] Modulus Xlw [id number] 10 Degree - [id number] Implanted:Qty : 1 on 01/30/2023 by Ivan Bartholomew MD at [facility] [place] N/A: Spine Lumbar [employer] [id number] / / [id number] Modulus Xlw [id number] - [id number] Implanted:Qty : 1 on 01/30/2023 by Ivan Bartholomew MD at [facility] [place] N/A: Spine Lumbar [employer] 09/28/2027 [id number] / / [id number] Reln Lock Scr 5.5mm Opn Tulip - [id number] Implanted:Qty : 6 on 01/30/2023 by Ivan Bartholomew MD at [facility] N/A: Spine Lumbar [employer] [id number] / / Reln Mas Ti Petar 5.5x70mm - [id number] Implanted:Qty : 2 on 01/30/2023 by Ivan Bartholomew MD at [facility] N/A: Spine Lumbar [employer] [id number] / / Procedures Procedure Name Priority Date/Time [...] al Result [facility] [address] * (ABNORMAL) BASIC METABOLIC PANEL (BMP=EP1) [...] lt [facility] [address] from Last 3 Months or Most Recently Relevant to Health Maintenance Insurance MEDICARE PART A [facility] [address] [address] [place] [address] ANTH Advance Directives For more information, please contact: [phone] * Full Code (Latest Code Status on File) Date Activated Date Inactivated Comments 01/30/2023 9:13 AM No automated chest compression devices for [facility] Patients Care Teams Spacecraft Systems Engineer Relationship Specialty Start Date End Date David Vazquez [address] [place] [id number] PCP - General 01/24/23
--- OUTSIDE RECORDS SUMMARY | 2024-10-29 09:08 | XMS_ITS | Encounter Summary ---
Author Organization Healthcare Address [address] [place] [address] Care Team Providers Care Communication Consultant Name Role Phone Jevon Vazquez MD Primary Care Provider [phone] Encounter Details Date Type Department Care Team [...] Hematology/BMT and Cellular Therapy Program [address] [address] 11/13/2024 1:30 PM EDT Office Visit P[facility] CC Hematology/BMT and Cellular Therapy Program [address] [address] Zonia Hoffman, RODDY 800 [facility] [address] [place] [address] 11/13/2024 3:00 PM EDT Appointment [facility] H Infusion 800 [place] [address] 11/14/2024 1:00 PM EDT Appointment [facility] H Infusion [address] [place] [address] 11/15/2024 1:00 PM EDT Appointment [facility] H Infusion [address] [place] [address] 11/16/2024 1:00 PM EDT Appointment [facility] H Infusion [address] [place] [address] 11/17/2024 3:00 PM EDT Appointment [facility] 2 [address] [place] [address] 11/18/2024 3:00 PM EDT Appointment [facility] 1 [address] [place] [address] 11/19/2024 2:00 PM EDT Appointment [facility] 2 [address] [place] [address] documented as of this encounter Visit Diagnoses Not on filedocumented in this encounter Additional Health Concerns Assessment Noted Time A fall risk assessment has been complete d for the patient 09/30/2024 9:33 AM EDT A Body Mass Index follow-up plan has been documented for the patient 05/28/2024 1:52 PM EST documented as of this encounter Care Teams Communication Consultant Relationship Specialty Start Date End Date Jevon Vazquez MD [address] [place] [address] #1 #1 Jul[place] JOSEP [address] PCP - General 03/23/22 documented as of this encounter
--- OUTSIDE RECORDS SUMMARY | 2024-10-29 09:08 | XMS_ITS | Encounter Summary ---
Author Organization Healthcare Address [address] [place] [address] Care Team Providers Care Physical Therapist Technician Name Role Phone Jevon Vazquez MD Primary Care Provider [phone] Encounter Details Date Type Department Care Team [...] Hematology/BMT and Cellular Therapy Program [address] [address] 11/13/2024 1:30 PM EDT Office Visit P[facility] CC Hematology/BMT and Cellular Therapy Program [address] [address] Zonia Hoffman, RODDY 800 [facility] [address] [place] [address] 11/13/2024 3:00 PM EDT Appointment [facility] H Infusion 800 [place] [address] 11/14/2024 1:00 PM EDT Appointment [facility] H Infusion [address] [place] [address] 11/15/2024 1:00 PM EDT Appointment [facility] H Infusion [address] [place] [address] 11/16/2024 1:00 PM EDT Appointment [facility] H Infusion [address] [place] [address] 11/17/2024 3:00 PM EDT Appointment [facility] 2 [address] [place] [address] 11/18/2024 3:00 PM EDT Appointment [facility] 1 [address] [place] [address] 11/19/2024 2:00 PM EDT Appointment [facility] 2 [address] [place] [address] documented as of this encounter Visit Diagnoses Not on filedocumented in this encounter Additional Health Concerns Assessment Noted Time A fall risk assessment has been complete d for the patient 09/19/2024 8:38 AM EDT A Body Mass Index follow-up plan has been documented for the patient 05/28/2024 1:52 PM EST documented as of this encounter Care Teams Physical Therapist Technician Relationship Specialty Start Date End Date Jevon Vazquez MD [address] [place] [address] #1 #1 Jul[place] JOSEP [address] PCP - General 03/23/22 documented as of this encounter
--- OUTSIDE RECORDS SUMMARY | 2024-10-29 09:08 | XMS_ITS | Encounter Summary ---
Author Organization Healthcare Address [address] [place] [address] Care Team Providers Care Pot Room Tapper Name Role Phone Jevon Vazquez MD Primary Care Provider [phone] Encounter Details Date Type Department Care Team [...] Hematology/BMT and Cellular Therapy Program [address] [address] 11/13/2024 1:30 PM EDT Office Visit PAV CC Hematology/BMT and Cellular Therapy Program [address] [address] Zonia Hoffman, RODDY 800 [facility] [address] [place] [address] 11/13/2024 3:00 PM EDT Appointment [facility] H Infusion 800 [place] [address] 11/14/2024 1:00 PM EDT Appointment [facility] H Infusion [address] [place] [address] 11/15/2024 1:00 PM EDT Appointment [facility] H Infusion [address] [place] [address] 11/16/2024 1:00 PM EDT Appointment [facility] H Infusion [address] [place] [address] 11/17/2024 3:00 PM EDT Appointment [facility] 2 7[address] [place] [address] 11/18/2024 3:00 PM EDT Appointment [facility] 1 [address] [place] [address] 11/19/2024 2:00 PM EDT Appointment [facility] 2 [address] [place] [address] documented as of this encounter Visit Diagnoses Not on filedocumented in this encounter Additional Health Concerns Assessment Noted Time A fall risk assessment has been complete d for the patient 09/30/2024 9:33 AM EDT A Body Mass Index follow-up plan has been documented for the patient 05/28/2024 1:52 PM EST documented as of this encounter Care Teams Pot Room Tapper Relationship Specialty Start Date End Date Jevon Vazquez MD [address] [place] [address] #1 #1 Julien JOSEP [address] PCP - General 03/23/22 documented as of this encounter
--- OUTSIDE RECORDS SUMMARY | 2024-10-29 09:08 | XMS_ITS | Encounter Summary ---
Author Organization Healthcare Address [address] [place] [address] Care Team Providers Care Plate Take Out Worker Name Role Phone Jevon Vazquez MD Primary Care Provider [phone] Encounter Details Date Type Department Care Team (Late Contact Info) Description 09/30/2024 Telephone P[facility] CC Hematology/BMT and Cellular Therapy Program [address] [place] [address] Zoraida Good, RN [facility] Social History Tobacco Use [...] Department Care Team (Late Contact Info) Description 11/13/2024 1:00 PM EDT Clinical Support PAV CC Hematology/BMT and Cellular Therapy Program [address] [place] [address] 11/13/2024 1:30 PM EDT Office Visit PAV CC Hematology/BMT and Cellular Therapy Program [address] [address] Zonia Hoffman, PARTS DATA WRITER 800 [facility] [address] [place] [address] 11/13/2024 3:00 PM EDT Appointment [facility] H Infusion 800 [place] [address] 11/14/2024 1:00 PM EDT Appointment [facility] H Infusion [address] [place] [address] 11/15/2024 1:00 PM EDT Appointment [facility] H Infusion 800 [place] [address] 11/16/2024 1:00 PM EDT Appointment [facility] H Infusion 800 [place] [address] 11/17/2024 3:00 PM EDT Appointment [facility] 2 [address] [place] [address] 11/18/2024 3:00 PM EDT Appointment [facility] 1 [address] [place] [address] 11/19/2024 2:00 PM EDT Appointment [facility] 2 [address] [place] [address] documented as of this encounter Visit Diagnoses Not on filedocumented in this encounter Additional Health Concerns Assessment Noted Time A fall risk assessment has been complete d for the patient 09/30/2024 9:33 AM EDT A Body Mass Index follow-up plan has been documented for the patient 05/28/2024 1:52 PM EST documented as of this encounter Care Teams Plate Take Out Worker Relationship Specialty Start Date End Date Jevon Vazquez MD [address] [place] [address] #1 #1 [place] [address] PCP - General 03/23/22 documented as of this encounter
--- OUTSIDE RECORDS SUMMARY | 2024-10-29 09:08 | XMS_ITS | Encounter Summary ---
Author Organization Healthcare Address [address] [place] [address] Care Team Providers Care Substance Abuse Counselor Name Role Phone Jevon Vazquez MD Primary Care Provider [phone] Encounter Details Date Type Department Care Team (Latest Contact Info) Description 10/27/2024 Travel Social History Tobacco Use Types Packs/Day [...] Hematology/BMT and Cellular Therapy Program [address] [address] 11/13/2024 1:30 PM EDT Office Visit P[facility] CC Hematology/BMT and Cellular Therapy Program [address] [address] Zonia Hoffman, RODDY 800 [facility] [address] [place] [address] 11/13/2024 3:00 PM EDT Appointment [facility] H Infusion 800 [place] [address] 11/14/2024 1:00 PM EDT Appointment [facility] H Infusion [address] [place] [address] 11/15/2024 1:00 PM EDT Appointment [facility] Infusion [address] [place] [address] 11/16/2024 1:00 PM EDT Appointment [facility] H Infusion [address] [place] [address] 11/17/2024 3:00 PM EDT Appointment [facility] 2 [address] [place] [address] 11/18/2024 3:00 PM EDT Appointment [facility] 1 [address] [place] [address] 11/19/2024 2:00 PM EDT Appointment [facility] 2 [address] [place] [address] documented as of this encounter Visit Diagnoses Not on filedocumented in this encounter Additional Health Concerns Assessment Noted Time A fall risk assessment has been complete d for the patient 09/30/2024 9:33 AM EDT A Body Mass Index follow-up plan has been documented for the patient 05/28/2024 1:52 PM EST documented as of this encounter Care Teams Substance Abuse Counselor Relationship Specialty Start Date End Date Jevon Vazquez MD [address] [place] [address] #1 #1 [place] JOSEP [address] PCP - General 03/23/22 documented as of this encounter
--- OUTSIDE RECORDS SUMMARY | 2024-10-29 09:08 | XMS_ITS | Encounter Summary ---
Author Organization [facility] Address [address] [place] [address] Care Team Providers Care International Organizer Name Role Phone Jevon Vazquez MD Primary Care Provider [phone] Reason for Visit * Reason Comments Med Refill Encounter Details Date Type Department Care Team ([facility] Contact Info) Description 10/14/2024 Refill PAV CC Hematology/BMT and Cellular Therapy Program [address] [phone] [place] Mckinney MD 800 [facility] [address] [place] [address] Social History Tobacco Use Types Packs/Day Years [...] Upcoming Encounters Date Type Department Care Team ([facility] Contact Info) Description 11/13/2024 1:00 PM EDT Clinical Support P[facility] CC Hematology/BMT and Cellular Therapy Program [address] [address] 11/13/2024 1:30 PM EDT Office Visit P[facility] CC Hematology/BMT and Cellular Therapy Program [address] [address] Zonia Hoffman, BACTERIOLOGY PROFESSOR 800 [facility] [address] [place] [address] 11/13/2024 3:00 PM EDT Appointment [facility] H Infusion [address] [place] [address] 11/14/2024 1:00 PM EDT Appointment [facility] Infusion [address] [place] [address] 11/15/2024 1:00 PM EDT Appointment [facility] Infusion [address] [place] [address] 11/16/2024 1:00 PM EDT Appointment [facility] Infusion [address] [place] [address] 11/17/2024 3:00 PM EDT Appointment [facility] 2 [address] [place] [address] 11/18/2024 3:00 PM EDT Appointment [facility] 1 [address] [place] [address] 11/19/2024 2:00 PM EDT Appointment [facility] 2 [address] [place] [address] documented as of this encounter Visit Diagnoses Not on filedocumented in this encounter Additional Health Concerns Assessment Noted Time A fall risk assessment has been complete d for the patient 09/30/2024 9:33 AM EDT A Body Mass Index follow-up plan has been documented for the patient 05/28/2024 1:52 PM EST documented as of this encounter Care Teams International Organizer Relationship Specialty Start Date End Date Jevon Vazquez MD [address] [place] [address] #1 #1 JulienJOSEP [address] PCP - General 03/23/22 documented as of this encounter
--- OUTSIDE RECORDS SUMMARY | 2024-10-29 09:08 | XMS_ITS | Encounter Summary ---
Author Organization [facility] Address [address] [place] [address] Care Team Providers Care Research Quality Assurance Analyst Name Role Phone Jevon Vazquez MD Primary Care Provider Reason for Visit * Reason Comments Med Refill Encounter Details Date Type Department Care Team ([facility] Contact Info) Description 10/15/2024 Refill PAV CC Hematology/BMT and Cellular Therapy Program [address] [phone] [place] Mckinney MD 800 [facility] [address] [place] [address] Social History Tobacco Use Types Packs/Day Years [...] Team ([facility] Contact Info) Description 11/13/2024 1:00 PM EDT Clinical Support PAV CC Hematology/BMT and Cellular Therapy Program [address] [address] 11/13/2024 1:30 PM EDT Office Visit P[facility] CC Hematology/BMT and Cellular Therapy Program [address] [address] Zonia Hoffman, HAND SPINNER 800 [facility] [address] [place] [address] 11/13/2024 3:00 PM EDT Appointment [facility] Infusion 800 [place] [address] 11/14/2024 1:00 PM EDT Appointment [facility] [address] [place] [address] 11/15/2024 1:00 PM EDT Appointment [facility]fusion [address] [place] [address] 11/16/2024 1:00 PM EDT Appointment [facility] [address] [place] [address] 11/17/2024 3:00 PM EDT Appointment [facility] 2 [address] [place] [address] 11/18/2024 3:00 PM EDT Appointment [facility] 1 [address] [place] [address] 11/19/2024 2:00 PM EDT Appointment [facility] 2 [address] [place] [address] documented as of this encounter Visit Diagnoses Not on filedocumented in this encounter Additional Health Concerns Assessment Noted Time A fall risk assessment has been complete d for the patient 09/30/2024 9:33 AM EDT A Body Mass Index follow-up plan has been documented for the patient 05/28/2024 1:52 PM EST documented as of this encounter Care Teams Research Quality Assurance Analyst Relationship Specialty Start Date End Date Jevon Vazquez MD [address] [place] [address] #1 #1 JulienJOSEP [address] PCP - General 03/23/22 documented as of this encounter
--- OUTSIDE RECORDS SUMMARY | 2024-10-29 09:08 | XMS_ITS | Encounter Summary ---
Author Organization [facility] Address [address] [place] [address] Care Team Providers Care Blood Bank Laboratory Professional Name Role Phone Jevon Vazquez MD Primary Care Provider [phone] Encounter Details Date Type Department Care Team ([facility] Contact Info) Description 10/08/2024 Orders Only [facility] Hematology/BMT and Cellular Therapy Program [address] [phone] 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, RN [place] [...] ([facility] Contact Info) Description 11/13/2024 1:00 PM EDT Clinical Support [facility] Hematology/BMT and Cellular Therapy Program [address] [phone] 11/13/2024 1:30 PM EDT Office Visit [facility] Hematology/BMT and Cellular Therapy Program [address] [phone] Zonia Hoffman, QUENCHING CAR OPERATOR 800 [facility] [address] [place] [phone] 11/13/2024 3:00 PM EDT Appointment [facility] [address] [place] [address] 11/14/2024 1:00 PM EDT Appointment [facility] [address] [place] [address] 11/15/2024 1:00 PM EDT Appointment [facility] [address] [place] [address] 11/16/2024 1:00 PM EDT Appointment [facility] [address] [place] [address] 11/17/2024 3:00 PM EDT Appointment [facility] 2 [address] [place] [address] 11/18/2024 3:00 PM EDT Appointment [facility] 1 [address] [place] [address] 11/19/2024 2:00 PM EDT Appointment [facility] 2 [address] [place] [address] Scheduled Orders Name Type Priority Associated Diagnoses [...] documented as of this encounter Care Teams Blood Bank Laboratory Professional Relationship Specialty Start Date End Date Jevon Vazquez MD [address] [place] [address] #1 #1 JOSEP [place] [address] PCP - General 03/23/22 documented as of this encounter
--- OUTSIDE RECORDS SUMMARY | 2024-10-29 09:08 | XMS_ITS | Clinical Summary ---
Author Organization [facility] Address [address] [place] [address] Care Team Providers Care Drill Setup Operator Name Role Phone Jevon Vazquez MD Primary Care Provider [phone] Allergies No known active allergies Medications amLODIPine [...] Encounters Date Type Department Care Team Description 10/28/2024 Telephone [facility] Hematology/BMT and Cellular Therapy Program [address] [place] [phone] Zonia Hoffman, PROFESSOR OF ANTHROPOLOGY 10/27/2024 Telephone [facility] Hematology/BMT and Cellular Therapy Program [address] [place] [address] Zonia Hoffman, PROFESSOR OF ANTHROPOLOGY 10/27/2024 Travel 10/26/2024 Travel 10/24/2024 Travel 10/23/2024 Travel 10/22/2024 Travel 10/15/2024 Refill [facility] Hematology/BMT and Cellular Therapy Program [address] [place] [address] New Mckinney MD 10/14/2024 Refill [facility] Hematology/BMT and Cellular Therapy Program [address] [place] [address] New Mckinney MD 10/13/2024 Telephone [facility] Hematology/BMT and Cellular Therapy Program [address] [place] [address] Zonia Hoffman APRN 10/13/2024 Travel 10/12/2024 Travel 10/11/2024 Travel 10/09/2024 Travel 10/08/2024 Travel 10/08/2024 Orders Only [facility] Hematology/BMT and Cellular Therapy Program 750 [facility], [address] [place] [address] 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, plasterer 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) 10/07/2024 Travel 09/30/2024 9:30 AM EDT Office Visit [facility] Hematology/BMT and Cellular Therapy Program 750 [facility], [address] [place] [address] Zonia Hoffman, RODDY 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) 09/30/2024 9:00 AM EDT Clinical Support [facility] Hematology/BMT and Cellular Therapy Program 750 [facility], [address] [place] [phone] Jyoti Kemp 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) 09/30/2024 Telephone [facility] Hematology/BMT and Cellular Therapy Program 750 [facility], [address] [place] [phone] Zoraida Good RN 09/30/2024 Travel 09/29/2024 Travel 09/28/2024 Travel 09/27/2024 Travel 09/26/2024 Travel 09/25/2024 Travel 09/24/2024 Travel 09/23/2024 Travel 09/19/2024 12:00 PM EDT Procedure Visit [facility] Hematology/BMT and Cellular Therapy Program 750 [facility], [address] [place] [address] [place] [address] Lexi Ferraro, PROFESSOR OF ANTHROPOLOGY 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) 09/19/2024 9:30 AM EDT Clinical Support [facility] 800 [facility], 2nd [place] [address] 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) 09/19/2024 7:30 AM EDT Clinical Support [facility] Hematology/BMT and Cellular Therapy Program [address] [place] [address] 09/19/2024 Telephone [facility] Hematology/BMT and Cellular Therapy Program [address] [place] [address] Romana Richmond, RN 09/19/2024 Orders Only [facility] Hematology/BMT and Cellular Therapy Program [address] [place] [address] 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, RN 09/19/2024 Travel 09/15/2024 Telephone [facility] Hematology/BMT and Cellular Therapy Program [address] [place] [phone] Zonia Hoffman, PROFESSOR OF ANTHROPOLOGY 09/15/2024 Travel 09/14/2024 Travel 09/13/2024 Travel 09/12/2024 Travel 09/12/2024 Refill [facility] Hematology/BMT and Cellular Therapy Program [address] [place] [address] New Mckinney MD 09/11/2024 Travel 09/10/2024 Travel 09/01/2024 Telephone [facility] Hematology/BMT and Cellular Therapy Program [address] [phone] Zonia Hoffman, PROFESSOR OF ANTHROPOLOGY 08/31/2024 Travel 08/30/2024 Travel 08/18/2024 Telephone [facility] Hematology/BMT and Cellular Therapy Program [address] [place] [address] Romana Gorman, PROFESSOR OF ANTHROPOLOGY 08/17/2024 Travel 08/16/2024 Travel 08/15/2024 Travel 08/13/2024 Travel 07/30/2024 8:30 AM EDT Office Visit [facility] Hematology/BMT and Cellular Therapy Program [address] [place] [address] Zonia Hoffman APRN Pancytopenia (Primary Dx) 07/30/2024 8:00 AM EDT Clinical Support [facility] Hematology/BMT and Cellular Therapy Program [address] [place] [address] Pancytopenia 07/30/2024 Telephone [facility] Hematology/BMT and Cellular Therapy Program 750 [facility], [address] [place] [address] [place] [address] Romana Richmond RN 07/30/2024 Refill [facility] Hematology/BMT and Cellular Therapy Program 750 [facility], [address] [place] [phone] Daxa Elliott RN Acute myeloid leukemia not having achieved remission ([facility]/HCC); Immunosuppressed status ([facility]/HCC) 07/30/2024 Travel from Last 3 Months Immunizations Immunization [...] Hematology/BMT and Cellular Therapy Program [address] [address] 11/13/2024 1:30 PM EDT Office Visit [facility] Hematology/BMT and Cellular Therapy Program [address] [phone] Zonia Hoffman, PROFESSOR OF ANTHROPOLOGY 800 [facility] [address] [place] [address] 11/13/2024 3:00 PM EDT Appointment [facility] [address] [place] [address] 11/14/2024 1:00 PM EDT Appointment [facility] [address] [place] [address] 11/15/2024 1:00 PM EDT Appointment [facility] [address] [place] [address] 11/16/2024 1:00 PM EDT Appointment [facility] [address] [place] [address] 11/17/2024 3:00 PM EDT Appointment [facility] 2 [address] [place] [address] 11/18/2024 3:00 PM EDT Appointment [facility] 1 [address] [place] [address] 11/19/2024 2:00 PM EDT Appointment [facility] 2 [address] [place] [address] Health Maintenance Due Date Last Done Comments [...] UKY-Zoster Vaccines (1 of 2) 05/16/2023 03/21/2023 [id number] Vaccine ( season) 2023 02/18/2021, 07/10/2020, 06/12/2020 [...] this topic Medical Devices Implanted Type Area Pillow Agent Device Identifier Shelf Expiration Date Model / Serial / Lot Port Clearvue Power 8fr - [id number] Implanted:Qty: 1 on 01/21/2024 by Ness Sargent MD at [facility] Vascular-[id number] / / Procedures Procedure Name Priority Date/Time [...] AM EDT 09/30/2024 9:34 AM EDT Narrative [facility] - 09/30/2024 11:07 AM EDT Therapeutic decision making should be based on absolute values, rather than percentages. us Zonia Hoffman PROFESSOR OF ANTHROPOLOGY LAB BLOOD ORDERABLES Final Res ult [facility] [address] [place] [address] * (ABNORMAL) Comprehensive Metabolic Panel, Plasma (09/30/2024 [...] APRN LAB BLOOD ORDERABLES Final Res ult [facility] [address] [place] [address] * BIOPSY BONE MARROW (09/19/2024 12:00 PM [...] to surronding structures. Alternatives discussed: Delayed treatment [place] protocol: Procedure explained and questions answered to [...] LAB HEMATOLOGY METHOD 09/19/2024 10:19 AM EDT [facility] Blood Blood sample taken from central line / Unknown (Port) Long-term Catheter / Unknown 09/19/2024 10:04 AM EDT 09/19/2024 10:18 AM EDT New Mckinney MD LAB BLOOD ORDERABLES Final Re sult [facility] [address] [place] [address] * Transfuse platelets, Irradiated (09/19/2024 10:02 AM EDT) Lexi Ferraro APRN BLOOD TRANSFUSION ORDERABL ES Final Result * Prepare Leukocyte Reduced Platelets (09/19/2024 9:08 AM EDT) Product Code C6801T37 CH BLOO D BANK Dispense Status Transfused BLOOD BANK Blood Expiration Date [id number] BLOOD BANK Unit Number [id number] CH B LOOD BANK Product Blood Type 6200 BLOOD BANK Blood Type A+ BLOOD BANK us Provider Not In System BLOOD BANK PRODUCT ORD ERABLES Final Result BLOOD BANK [address] [place] [address], * Myeloid Focused Panel, 50 gene (09/19/2024 7:29 AM EDT) Interpretation The following two (2) genes, TP53 and DNMT3A, with persistent variants have been detected in this bone marrow specimen. The variant, p.Tgk638Mgm, in TP53 gene and the variant, p.Vdn274cpb, in the RUNX 1 gene are not detectable at current cutoff and coverage established in this lab. Gene: TP53 Mutation: c.814G>A; p.Kgq167Bbw Allele Frequency (%): 37% (45% Dec 2023) ID: [id number] Gene: DNMT3A Mutation: c.1522delC; p.[id number] 3 Allele Frequency (%): 36% (48% Dec 2023) Additional Details on Mutation Identified: Gene Transcript Genome Chrom Coordinate RefVar DNMT3A [id number] Hg19 2 [id number] delC TP53 [id number] Hg19 17 [id number] G>A 09/29/2024 4:05 PM EDT [facility] [...] then sequenced on the Illumina NextSeq 2000 ([employer], [place]). A custom bioinformatics pipeline aligns [...] of hematologic malignancies. 09/29/2024 4:05 PM EDT [facility] Disclaimer This test was developed and its performance characteristics determined by the Clinical Molecular and Genomic Pathology Laboratory at the [facility]. It has not been cleared [...] clinical laboratory testing. 09/29/2024 4:05 PM EDT [facility] Pathologist Signature Reviewed by: Corey Tejada 09/29/2024 4:05 PM EDT [facility] Bone Marrow Specimen from bone marrow obtained by aspiration / Unknown Non-blood Collection / Unknown 09/19/2024 7:29 AM EDT 09/19/2024 12:03 PM EDT us New Mckinney MD LAB MOLECULAR DIAGNOSTICS ORD ERABLES Final Result [facility] [address] [place] [address], * Chromosome Karyotype, Oncology (09/19/2024 7:29 AM EDT) Specimen Type Bone Marrow 09/24/2024 2:37 PM EDT [facility] Clinical Indication Myelodysplastic Syndrome 09/24/2024 2:37 PM EDT [facility] Specimen Adequacy Adequate 025 2:37 PM EDT [facility] Chromosome Analysis Result Giemsa-banded metaphase cells from unstimulated bone marrow cultures showed a 46,XX[20] chromosome pattern. 09/24/2024 2:37 PM EDT [facility] Interpretation Normal female chromosome analysis. No clonal abnormalities were detected at current resolution. Clinical correlation is recommended. # cells counted = 20 # cells analyzed = 20 # cells karyotyped = 2 Band resolution: 450-525 09/24/2024 2:37 PM EDT [facility] Pathologist Signature Reviewed by: Corey Tejada 09/24/2024 2:37 PM EDT [facility] Bone Marrow Non-blood Collection / Unknown 09/19/2024 7:29 AM EDT 09/19/2024 12:35 PM EDT us New Mckinney MD LAB CYTOGENETICS ORDERABLES F inal Result [facility] [address] [place] [address] * Leukemia/Lymphoma - Immunophenotyping by Flow Cytometry (09/19/2024 7:29 AM EDT) Clinical Indication AML 09/22/2024 10:29 AM EDT [facility] Flow Cytometry Interpretation A. BONE MARROW FOR FLOW CYTOMETRY: - MIXED MARROW ELEMENTS WITH NO EVIDENCE OF INCREASED BLASTS OR ABNORMAL LYMPHOID POPULATIONS, SEE COMMENT. 09/22/2024 10:29 AM EDT [facility] Comments CD45/side scatter analysis shows [...] chains 09/22/2024 10:29 AM EDT [facility] Disclaimer This test was developed and its performance characteristics determined by the Immuno-Molecular Pathology Laboratory at the [facility]. It has not been cleared [...] report. 09/22/2024 10:29 AM EDT [facility] Pathologist Signature Reviewed by: Lisandra Epstein MD 09/22/2024 10:29 AM EDT [facility] MRD Indicated Test Not Indicated 12/2024 10:29 AM EDT [facility] Bone Marrow Specimen from bone marrow obtained by aspiration / Unknown Non-blood Collection / Unknown 09/19/2024 7:29 AM EDT 09/19/2024 12:13 PM EDT us New Mckinney MD LAB FLOW CYTOMETRY ORDERABLES Final Result [facility] [address] [place] [address] * Bone marrow exam (09/19/2024 7:29 AM EDT) Case Report Bone Marrow Case: [id number] Authorizing Provider: New Mckinney MD Collected: 09/19/2024 0729 Ordering Location: [facility] Hematology/BMT and Received: 09/19/2024 1216 Cellular Therapy Program Pathologist: Lisandra Epstein MD Specimens: A) - Bone Marrow Aspirate, right B) - Bone Marrow Biopsy, right C) - Peripheral Blood for Bone Marrow 3:15 PM EDT [facility] Cytogenetics Report, Addendum Chromosome Analysis Result Giemsa-banded metaphase cells from unstimulated bone marrow cultures showed a 46,XX[20] chromosome pattern. Interpretation Normal female chromosome analysis. No clonal abnormalities were detected at current resolution. Clinical correlation is recommended. 3:15 PM EDT [facility] Addendum electronically signed by Lisandra Epstein MD on 09/24/2024 at 1630 EDT Addendum Interpretation The following two (2) genes, TP53 and DNMT3A, with persistent variants have been detected in this bone marrow specimen. The variant, p.Cqg300Twa, in TP53 gene and the variant, p.Wys732wjl, in the RUNX 1 gene are not detectable at current cutoff and coverage established in this lab. Gene: TP53 Mutation: c.814G>A; p.Boz860Ycw Allele Frequency (%): 37% (45% Dec 2023) ID: [id number] Gene: DNMT3A Mutation: c.1522delC; p.Nhx371NsjhxXgl0 43 Allele Frequency (%): 36% (48% Dec 2023) Additional Details on Mutation Identified: 3:15 PM EDT [facility] Addendum electronically signed by Lisandra Epstein MD on 09/30/2024 at 1515 EDT Final Diagnosis PERIPHERAL BLOOD AND BONE MARROW, RIGHT POSTERIOR ILIAC CREST, (ASPIRATE SMEAR, AND CORE BIOPSY): - HYPOCELLULAR BONE MARROW WITH MARKEDLY DECREASED MEGAKARYOCYTES; NO SIGNIFICANT DYSPOIESIS OR INCREASE IN BLASTS. 3:15 PM EDT [facility] at 1453 EDT Clinical Information AML 09/14 3:15 PM EDT [facility] CBC and Differential PERIPHERAL BLOOD: [...] blasts are not seen. 3:15 PM EDT [facility] Bone Marrow Differential BONE MARROW DIFFERENTIAL: 200 cells Normal Patient Neutrophils 15-50 34 Metamyelocytes 4-19 3 Myelocytes 1-18 10 Promyelocytes 1-8 1 Blasts 0-2 1 Monocytes 0-5 4 Erythroid 16-38 22 Lymphocytes 3-24 13 Eosinophils 0-6 8 Basophils 0-2 0 Plasma cells 0-4 4 Other 5 3:15 PM EDT [facility] Bone Marrow Aspirate and Biopsy [...] are unremarkable. 3:15 PM EDT [facility] Special and Immunohistochemical Stains Special Stain: A1-1 Vazquez-Giemsa A1-2 Vazquez-Giemsa A1-3 Vazquez-Giemsa C1-1 Vazquez-Giemsa IHC: B1-2 CD34 All controls show appropriate reactivity. All immunohistochemis try, in situ hybridization, and histochemical tests were developed by and are performed at the [facility], [address] [place] [address]. All tests reported here, except those addressing [...] negativity on decalcified specimens. 3:15 PM EDT [facility] Flow Cytometry Interpretation MIXED MARROW ELEMENTS WITH NO EVIDENCE OF INCREASED BLASTS OR ABNORMAL LYMPHOID POPULATIONS ([id number]). 3:15 PM EDT [facility] CYTOGENETICS/MOLECULA R INTERPRETATION Correlation with cytogenetic/molec ular analysis is suggested. 3:15 PM EDT [facility] Gross Description B. RIGHT A single specimen is received in formalin labeled bone marrow biopsy right posterior iliac crest and consists of 2 piece(s) of red/white tissue measuring 2.1/0.3 cm in length 0.2 cm in diameter. The specimen is submitted in to Histology for decalcification and routine processing. Cold Time: <1m 3:15 PM EDT [facility] Note: A resident was involved in the service. I attest I examined the relevant preparations for the specimens and confirmed the diagnosis or interpretation. 3:15 PM EDT [facility] Bone Marrow Peripheral blood specimen [...] PATHOLOGY ORDERABLES Edit ed Result - Final [facility] [address] [place] [address] * Hepatitis C Antibody w/Reflex to HCV Quant PCR (01/07/2024 8:42 AM EDT) Hepatitis C Antibody Negative Negative 01/07/2024 10:13 AM EDT [facility] Blood Venous blood specimen / Unknown Venipuncture / Unknown 01/07/2024 8:42 AM EDT 01/07/2024 9:25 AM EDT us New Mckinney MD LAB BLOOD ORDERABLES Final Re sult [facility] [address] [place] [address] from Last 3 Months or Most Recently Relevant to Health Maintenance Insurance MEDICARE [facility] Care Teams Drill Setup Operator Relationship Specialty Start Date End Date Jevon Vazquez MD [address] [place] [address] #1 #1 JOSEP [place] [id number] PCP - General 03/23/22
--- OUTSIDE RECORDS SUMMARY | 2024-10-29 09:08 | XMS_ITS | Encounter Summary ---
Author Organization Healthcare Address [address] [place] [address] Care Team Providers Care Rigging Slinger Name Role Phone Jevon Vazquez MD Primary Care Provider [phone] Encounter Details Date Type Department Care Team [...] Hematology/BMT and Cellular Therapy Program [address] [address] 11/13/2024 1:30 PM EDT Office Visit [facility] Hematology/BMT and Cellular Therapy Program [address] [address] Zonia Hoffman, RODDY 800 [facility] [address] [place] [address] 11/13/2024 3:00 PM EDT Appointment [facility] [address] [place] [address] 11/14/2024 1:00 PM EDT Appointment [facility] [address] [place] [address] 11/15/2024 1:00 PM EDT Appointment [facility] [address] [place] [address] 11/16/2024 1:00 PM EDT Appointment [facility] [address] [place] [address] 11/17/2024 3:00 PM EDT Appointment [facility] 2 [address] [place] [address] 11/18/2024 3:00 PM EDT Appointment [facility] 1 [address] [place] [address] 11/19/2024 2:00 PM EDT Appointment [facility] 2 [address] [place] [address] documented as of this encounter Visit Diagnoses Not on filedocumented in this encounter Additional Health Concerns Assessment Noted Time A fall risk assessment has been complete d for the patient 09/19/2024 8:38 AM EDT A Body Mass Index follow-up plan has been documented for the patient 05/28/2024 1:52 PM EST documented as of this encounter Care Teams Rigging Slinger Relationship Specialty Start Date End Date Jevon Vazquez MD [address] [place] [address] #1 #1 Julien JOSEP [id number] PCP - General 03/23/22 documented as of this encounter
--- OUTSIDE RECORDS SUMMARY | 2024-10-29 09:08 | XMS_ITS | Encounter Summary ---
Author Organization Healthcare Address [address] [place] [address] Care Team Providers Care State Federal Relations Deputy Director Name Role Phone Jevon Vazquez MD Primary Care Provider [phone] Encounter Details Date Type Department Care Team [...] Hematology/BMT and Cellular Therapy Program [address] [address] 11/13/2024 1:30 PM EDT Office Visit [facility] Hematology/BMT and Cellular Therapy Program [address] [address] Zonia Hoffman, RODDY 800 [facility] [address] [place] [address] 11/13/2024 3:00 PM EDT Appointment [facility] [address] [place] [address] 11/14/2024 1:00 PM EDT Appointment [facility] [address] [place] [address] 11/15/2024 1:00 PM EDT Appointment [facility] [address] [place] [address] 11/16/2024 1:00 PM EDT Appointment [facility] [address] [place] [address] 11/17/2024 3:00 PM EDT Appointment [facility] 2 [address] [place] [address] 11/18/2024 3:00 PM EDT Appointment [facility] 1 [address] [place] [address] 11/19/2024 2:00 PM EDT Appointment [facility] 2 [address] [place] [address] documented as of this encounter Visit Diagnoses Not on filedocumented in this encounter Additional Health Concerns Assessment Noted Time A fall risk assessment has been complete d for the patient 09/30/2024 9:33 AM EDT A Body Mass Index follow-up plan has been documented for the patient 05/28/2024 1:52 PM EST documented as of this encounter Care Teams State Federal Relations Deputy Director Relationship Specialty Start Date End Date Jevon Vazquez MD [address] [place] [address] #1 #1 Julien JOSEP [id number] PCP - General 03/23/22 documented as of this encounter
--- OUTSIDE RECORDS SUMMARY | 2024-10-29 09:08 | XMS_ITS | Encounter Summary ---
Author Organization Healthcare Address [address] [place] [address] Care Team Providers Care Manager Epic Name Role Phone Jevon Vazquez MD Primary Care Provider [phone] Encounter Details Date Type Department Care Team [...] Hematology/BMT and Cellular Therapy Program [address] [address] 11/13/2024 1:30 PM EDT Office Visit [facility] Hematology/BMT and Cellular Therapy Program [address] [address] Zonia Hoffman, RODDY [address] [facility] [address] [place] [address] 11/13/2024 3:00 PM EDT Appointment [facility] [address] [place] [address] 11/14/2024 1:00 PM EDT Appointment [facility] [address] [place] [address] 11/15/2024 1:00 PM EDT Appointment [facility] [address] [place] [address] 11/16/2024 1:00 PM EDT Appointment [facility] [address] [place] [address] 11/17/2024 3:00 PM EDT [facility]ointment [facility] 2 [address] [place] [address] 11/18/2024 3:00 PM EDT Appointment [facility] 1 [address] [place] [address] 11/19/2024 2:00 PM EDT Appointment [facility] 2 [address] [place] [address] documented as of this encounter Visit Diagnoses Not on filedocumented in this encounter Additional Health Concerns Assessment Noted Time A fall risk assessment has been complete d for the patient 09/30/2024 9:33 AM EDT A Body Mass Index follow-up plan has been documented for the patient 05/28/2024 1:52 PM EST documented as of this encounter Care Teams Manager Epic Relationship Specialty Start Date End Date Jevon Vazquez MD [address] [place] [address] #1 #1 Julien JOSEP [id number] PCP - General 03/23/22 documented as of this encounter
--- OUTSIDE RECORDS SUMMARY | 2024-10-29 09:08 | XMS_ITS | Encounter Summary ---
Author Organization Healthcare Address [address] [place] [address] Care Team Providers Care Valve Repairer Reclamation Name Role Phone Jevon Vazquez MD Primary Care Provider [phone] Encounter Details Date Type Department Care Team [...] Hematology/BMT and Cellular Therapy Program [address] [address] 11/13/2024 1:30 PM EDT Office Visit [facility] Hematology/BMT and Cellular Therapy Program [address] [address] Zonia Hoffman, RODDY 800 [facility] [address] [place] [address] 11/13/2024 3:00 PM EDT Appointment [facility] In[facility] 800 [place] [address] 11/14/2024 1:00 PM EDT Appointment [facility] [address] [place] [address] 11/15/2024 1:00 PM EDT Appointment [facility] 800 [place] [address] 11/16/2024 1:00 PM EDT Appointment [facility] 800 [place] [address] 11/17/2024 3:00 PM EDT Appointment [facility] 2 744 [place] [address] 11/18/2024 3:00 PM EDT Appointment [facility] 1 744 [place] [address] 11/19/2024 2:00 PM EDT Appointment [facility] 2 744 [place] [address] documented as of this encounter Visit Diagnoses Not on filedocumented in this encounter Additional Health Concerns Assessment Noted Time A fall risk assessment has been complete d for the patient 09/30/2024 9:33 AM EDT A Body Mass Index follow-up plan has been documented for the patient 05/28/2024 1:52 PM EST documented as of this encounter Care Teams Valve Repairer Reclamation Relationship Specialty Start Date End Date Jevon Vazquez MD [address] [place] [address] #1 #1 Julien JOSEP [id number] PCP - General 03/23/22 documented as of this encounter
--- OUTSIDE RECORDS SUMMARY | 2024-10-29 09:08 | XMS_ITS | Encounter Summary ---
Author Organization Healthcare Address [address] [place] [address] Care Team Providers Care It Coordinator Name Role Phone Jevon Vazquez MD [...] Hematology/BMT and Cellular Therapy Program [address] [address] 11/13/2024 1:30 PM EDT Office Visit [facility] Hematology/BMT and Cellular Therapy Program [address] [address] Zonia Hoffman, RODDY 800 [facility] [address] [place] [address] 11/13/2024 3:00 PM EDT Appointment [facility] Infusion 800 [place] [address] 11/14/2024 1:00 PM EDT Appointment [facility] [address] [place] [address] 11/15/2024 1:00 PM EDT Appointment [facility] 800 [place] [address] 11/16/2024 1:00 PM EDT Appointment [facility] 800 [place] [address] 11/17/2024 3:00 PM EDT Appointment [facility] 2 744 [place] [address] 11/18/2024 3:00 PM EDT Appointment [facility] 1 744 [place] [address] 11/19/2024 2:00 PM EDT Appointment [facility] 2 744 [place] [address] documented as of this encounter Visit Diagnoses Not on filedocumented in this encounter Additional Health Concerns Assessment Noted Time A fall risk assessment has been complete d for the patient 09/30/2024 9:33 AM EDT A Body Mass Index follow-up plan has been documented for the patient 05/28/2024 1:52 PM EST documented as of this encounter Care Teams It Coordinator Relationship Specialty Start Date End Date Jevon Vazquez MD [address] [place] [address] #1 #1 Julien JOSEP [id number] PCP - General 03/23/22 documented as of this encounter
--- OUTSIDE RECORDS SUMMARY | 2024-10-29 09:08 | XMS_ITS | Encounter Summary ---
Author Organization Healthcare Address [address] [place] [address] Care Team Providers Care Equipment Maintenance Engineer Name Role Phone Jevon Vazquez MD Primary Care Provider [phone] Encounter Details Date Type Department Care Team ([facility] st Contact Info) Description 09/01/2024 Telephone [facility] Hematology/BMT and Cellular Therapy Program [address] [address] Zonia Hoffman, MECHANICAL TEST TECHNICIAN 800 [facility] [address] [place] [phone] Social History Tobacco Use Types Packs/Day Years [...] told her to cancel. Please confirm Callback number:[phone] documented in this encounter Plan of Treatment Upcoming Encounters Date Type Department Care Team (Late st Contact Info) Description 11/13/2024 1:00 PM EDT Clinical Support PAV Hematology/BMT and Cellular Therapy Program [address] [address] 11/13/2024 1:30 PM EDT Office Visit P[facility] Hematology/BMT and Cellular Therapy Program [address] [address] Zonia Hoffman, MECHANICAL TEST TECHNICIAN 800 [facility] [address] [place] [address] 11/13/2024 3:00 PM EDT Appointment [facility]fusion 800 [place] [address] 11/14/2024 1:00 PM EDT Appointment [facility] 800 [place] [address] 11/15/2024 1:00 PM EDT Appointment [facility] 800 [place] [address] 11/16/2024 1:00 PM EDT Appointment [facility] 800 [place] [address] 11/17/2024 3:00 PM EDT Appointment [facility] 2 744 [place] [address] 11/18/2024 3:00 PM EDT Appointment [facility] 1 744 [place] [address] 11/19/2024 2:00 PM EDT Appointment [facility] 2 744 [place] [address] documented as of this encounter Visit Diagnoses Not on filedocumented in this encounter Additional Health Concerns Assessment Noted Time A fall risk assessment has been complete d for the patient 07/30/2024 8:29 AM EDT A Body Mass Index follow-up plan has been documented for the patient 05/28/2024 1:52 PM EST documented as of this encounter Care Teams Equipment Maintenance Engineer Relationship Specialty Start Date End Date Jevon Vazquez MD [address] [place] [address] #1 #1 JOSEP [place] [id number] PCP - General 03/23/22 documented as of this encounter
--- OUTSIDE RECORDS SUMMARY | 2024-10-29 09:08 | XMS_ITS | Encounter Summary ---
Author Organization Healthcare Address [address] [place] [address] Care Team Providers Care Educational Resource Coordinator Name Role Phone Jevon Vazquez MD Primary Care Provider [phone] Encounter Details Date Type Department Care Team ([facility] st Contact Info) Description 10/28/2024 Telephone [facility] Hematology/BMT and Cellular Therapy Program [address] [address] Zonia Hoffman, COSMETIC CONSULTANT 800 [facility] [address] [place] [phone] Social History Tobacco Use Types Packs/Day Years [...] Telephone Encounter - 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 RN - 10/28/2024 11:21 AM EDT See other phone note. * Telephone Encounter - Elizabet Paz - 10/28/2024 10:18 AM EDT Patient wanting a call to go over her labs results Callback number: [phone] documented in this encounter Plan of Treatment Upcoming Encounters Date Type Department Care Team (Late st Contact Info) Description 11/13/2024 1:00 PM EDT Clinical Support [facility] Hematology/BMT and Cellular Therapy Program [address] [address] 11/13/2024 1:30 PM EDT Office Visit [facility] Hematology/BMT and Cellular Therapy Program [address] [address] Zonia Hoffman, COSMETIC CONSULTANT 800 [facility] [address] [place] [address] 11/13/2024 3:00 PM EDT Appointment [facility] Infusion 800 [place] [address] 11/14/2024 1:00 PM EDT Appointment [facility] 800 [place] [address] 11/15/2024 1:00 PM EDT Appointment [facility] 800 [place] [address] 11/16/2024 1:00 PM EDT Appointment [facility] 800 [place] [address] 11/17/2024 3:00 PM EDT Appointment [facility] 2 744 [place] [address] 11/18/2024 3:00 PM EDT Appointment [facility] 1 744 [place] [address] 11/19/2024 2:00 PM EDT Appointment [facility] 2 744 [place] [address] documented as of this encounter Visit Diagnoses Not on filedocumented in this encounter Additional Health Concerns Assessment Noted Time A fall risk assessment has been complete d for the patient 09/30/2024 9:33 AM EDT A Body Mass Index follow-up plan has been documented for the patient 05/28/2024 1:52 PM EST documented as of this encounter Care Teams Educational Resource Coordinator Relationship Specialty Start Date End Date Jevon Vazquez MD [address] [place] [address] #1 #1 JOSEP [place] [id number] PCP - General 03/23/22 documented as of this encounter
--- OUTSIDE RECORDS SUMMARY | 2024-10-29 09:08 | XMS_ITS | Encounter Summary ---
Author Organization Healthcare Address [address] [place] [address] Care Team Providers Care Dough Sheeter Name Role Phone Jevon Vazquez MD Primary Care Provider [phone] Encounter Details Date Type Department Care Team [...] Hematology/BMT and Cellular Therapy Program [address] [address] 11/13/2024 1:30 PM EDT Office Visit [facility] Hematology/BMT and Cellular Therapy Program [address] [address] Zonia Hoffman, RODDY 800 [facility] [address] [place] [address] 11/13/2024 3:00 PM EDT Appointment [facility] Infusion 800 [place] [address] 11/14/2024 1:00 PM EDT Appointment [facility] [address] [place] [address] 11/15/2024 1:00 PM EDT Appointment [facility] 800 [place] [address] 11/16/2024 1:00 PM EDT Appointment [facility] 800 [place] [address] 11/17/2024 3:00 PM EDT Appointment [facility] 2 744 [place] [address] 11/18/2024 3:00 PM EDT Appointment [facility] 1 [address] [place] [address] 11/19/2024 2:00 PM EDT Appointment [facility] 2 [address] [place] [address] documented as of this encounter Visit Diagnoses Not on filedocumented in this encounter Additional Health Concerns Assessment Noted Time A fall risk assessment has been complete d for the patient 09/30/2024 9:33 AM EDT A Body Mass Index follow-up plan has been documented for the patient 05/28/2024 1:52 PM EST documented as of this encounter Care Teams Dough Sheeter Relationship Specialty Start Date End Date Jevon Vazquez MD [address] [place] [address] #1 #1 Julien JOSEP [id number] PCP - General 03/23/22 documented as of this encounter
--- OUTSIDE RECORDS SUMMARY | 2024-10-29 09:08 | XMS_ITS | Encounter Summary ---
Author Organization Healthcare Address [address] [place] [address] Care Team Providers Care Fish Protector Name Role Phone Jevon Vazquez MD Primary [...] Hematology/BMT and Cellular Therapy Program [address] [address] 11/13/2024 1:30 PM EDT Office Visit [facility] Hematology/BMT and Cellular Therapy Program [address] [address] Zonia Hoffman, RODDY 800 [facility] [address] [place] [address] 11/13/2024 3:00 PM EDT Appointment [facility] Infusion 800 [place] [address] 11/14/2024 1:00 PM EDT Appointment [facility] [address] [place] [address] 11/15/2024 1:00 PM EDT Appointment [facility] 800 [place] [address] 11/16/2024 1:00 PM EDT Appointment [facility] 800 [place] [address] 11/17/2024 3:00 PM EDT Appointment [facility] 2 7[address] [place] [address] 11/18/2024 3:00 PM EDT Appointment [facility] 1 744 [place] [address] 11/19/2024 2:00 PM EDT Appointment [facility] 2 7[address] [place] [address] documented as of this encounter Visit Diagnoses Not on filedocumented in this encounter Additional Health Concerns Assessment Noted Time A fall risk assessment has been complete d for the patient 09/30/2024 9:33 AM EDT A Body Mass Index follow-up plan has been documented for the patient 05/28/2024 1:52 PM EST documented as of this encounter Care Teams Fish Protector Relationship Specialty Start Date End Date Jevon Vazquez MD [address] [place] [address] #1 #1 Julien JOSEP [id number] PCP - General 03/23/22 documented as of this encounter
--- OUTSIDE RECORDS SUMMARY | 2024-10-29 09:08 | XMS_ITS | Encounter Summary ---
Author Organization Healthcare Address [address] [place] [address] Care Team Providers Care Double End Tenoner Setter Name Role Phone Jevon Vazquez MD Primary Care Provider [phone] Encounter Details Date Type Department Care Team [...] Hematology/BMT and Cellular Therapy Program [address] [address] 11/13/2024 1:30 PM EDT Office Visit [facility] Hematology/BMT and Cellular Therapy Program [address] [address] Zonia Hoffman, RODDY 800 [facility] [address] [place] [address] 11/13/2024 3:00 PM EDT Appointment [facility] Infusion 800 [place] [address] 11/14/2024 1:00 PM EDT Appointment [facility] [address] [place] [address] 11/15/2024 1:00 PM EDT Appointment [facility] 800 [place] [address] 11/16/2024 1:00 PM EDT Appointment [facility] 800 [place] [address] 11/17/2024 3:00 PM EDT Appointment [facility] 2 [address] [place] [address] 11/18/2024 3:00 PM EDT Appointment [facility] 1 [address] [place] [address] 11/19/2024 2:00 PM EDT Appointment [facility] 2 [address] [place] [address] documented as of this encounter Visit Diagnoses Not on filedocumented in this encounter Additional Health Concerns Assessment Noted Time A fall risk assessment has been complete d for the patient 09/19/2024 8:38 AM EDT A Body Mass Index follow-up plan has been documented for the patient 05/28/2024 1:52 PM EST documented as of this encounter Care Teams Double End Tenoner Setter Relationship Specialty Start Date End Date Jevon Vazquez MD [address] [place] [address] #1 #1 Julien JOSEP [id number] PCP - General 03/23/22 documented as of this encounter
--- OUTSIDE RECORDS SUMMARY | 2024-10-29 09:08 | XMS_ITS | Encounter Summary ---
Author Organization Healthcare Address [address] [place] [address] Care Team Providers Care Commercial Credit Portfolio Manager Name Role Phone Jevon Vazquez MD Primary Care Provider [phone] Encounter Details Date Type Department Care Team [...] Hematology/BMT and Cellular Therapy Program [address] [address] 11/13/2024 1:30 PM EDT Office Visit [facility] Hematology/BMT and Cellular Therapy Program [address] [address] Zonia Hoffman, RODDY 800 [facility] [address] [place] [address] 11/13/2024 3:00 PM EDT Appointment [facility] Infusion 800 [place] [address] 11/14/2024 1:00 PM EDT Appointment [facility] [address] [place] [address] 11/15/2024 1:00 PM EDT Appointment [facility] 800 [place] [address] 11/16/2024 1:00 PM EDT Appointment [facility] 800 [place] [address] 11/17/2024 3:00 PM EDT Appointment [facility] 2 744 [place] [address] 11/18/2024 3:00 PM EDT Appointment [facility] 1 744 [place] [address] 11/19/2024 2:00 PM EDT Appointment [facility] 2 744 [place] [address] documented as of this encounter Visit Diagnoses Not on filedocumented in this encounter Additional Health Concerns Assessment Noted Time A fall risk assessment has been complete d for the patient 07/30/2024 8:29 AM EDT A Body Mass Index follow-up plan has been documented for the patient 05/28/2024 1:52 PM EST documented as of this encounter Care Teams Commercial Credit Portfolio Manager Relationship Specialty Start Date End Date Jevon Vazquez MD [address] [place] [address] #1 #1 Julien JOSEP [id number] PCP - General 03/23/22 documented as of this encounter
--- OUTSIDE RECORDS SUMMARY | 2024-10-29 09:08 | XMS_ITS | Encounter Summary ---
Author Organization Healthcare Address [address] [place] [address] Care Team Providers Care Escort Blind Name Role Phone Jevon Vazquez MD Primary Care Provider [phone] Encounter Details Date Type Department Care Team [...] Hematology/BMT and Cellular Therapy Program [address] [address] 11/13/2024 1:30 PM EDT Office Visit [facility] CC Hematology/BMT and Cellular Therapy Program [address] [address] Zonia Hoffman, RODDY 800 [facility] [address] [place] [address] 11/13/2024 3:00 PM EDT Appointment [facility] Infusion 800 [place] [address] 11/14/2024 1:00 PM EDT Appointment [facility] [address] [place] [address] 11/15/2024 1:00 PM EDT Appointment [facility] Infusion 800 [place] [address] 11/16/2024 1:00 PM EDT Appointment [facility] 800 [place] [address] 11/17/2024 3:00 PM EDT Appointment [facility] 2 7[address] [place] [address] 11/18/2024 3:00 PM EDT Appointment [facility] 1 7[address] [place] [address] 11/19/2024 2:00 PM EDT Appointment [facility] 2 [address] [place] [address] documented as of this encounter Visit Diagnoses Not on filedocumented in this encounter Additional Health Concerns Assessment Noted Time A fall risk assessment has been complete d for the patient 09/30/2024 9:33 AM EDT A Body Mass Index follow-up plan has been documented for the patient 05/28/2024 1:52 PM EST documented as of this encounter Care Teams Escort Blind Relationship Specialty Start Date End Date Jevon Vazquez MD [address] [place] [address] #1 #1 Julien JOSEP [id number] PCP - General 03/23/22 documented as of this encounter
--- OUTSIDE RECORDS SUMMARY | 2024-10-29 09:09 | XMS_ITS | Encounter Summary ---
Author Organization Healthcare Address [address] [place] [address] Care Team Providers Care Loan Operations Manager Name Role Phone Jevon Vazquez MD Primary Care Provider [phone] Encounter Details Date Type Department Care Team [...] Hematology/BMT and Cellular Therapy Program [address] [address] 11/13/2024 1:30 PM EDT Office Visit [facility] Hematology/BMT and Cellular Therapy Program [address] [address] Zonia Hoffman, RODDY 800 [facility] [address] [place] [address] 11/13/2024 3:00 PM EDT Appointment [facility] Infusion 800 [place] [address] 11/14/2024 1:00 PM EDT Appointment [facility] [address] [place] [address] 11/15/2024 1:00 PM EDT Appointment [facility] Infusion 800 [place] [address] 11/16/2024 1:00 PM EDT Appointment [facility] 800 [place] [address] 11/17/2024 3:00 PM EDT Appointment [facility] 2 [address] [place] [address] 11/18/2024 3:00 PM EDT Appointment [facility] 1 [address] [place] [address] 11/19/2024 2:00 PM EDT Appointment [facility] 2 [address] [place] [address] documented as of this encounter Visit Diagnoses Not on filedocumented in this encounter Additional Health Concerns Assessment Noted Time A fall risk assessment has been complete d for the patient 09/19/2024 8:38 AM EDT A Body Mass Index follow-up plan has been documented for the patient 05/28/2024 1:52 PM EST documented as of this encounter Care Teams Loan Operations Manager Relationship Specialty Start Date End Date Jevon Vazquez MD [address] [place] [address] #1 #1 Julien JOSEP [id number] PCP - General 03/23/22 documented as of this encounter
--- OUTSIDE RECORDS SUMMARY | 2024-10-29 09:09 | XMS_ITS | Encounter Summary ---
Author Organization Healthcare Address [address] [place] [address] Care Team Providers Care Inspector Purchased Parts Name Role Phone Jevon Vazquez MD Primary Care Provider [phone] Encounter Details Date Type Department Care Team [...] Hematology/BMT and Cellular Therapy Program [address] [address] 11/13/2024 1:30 PM EDT Office Visit [facility] Hematology/BMT and Cellular Therapy Program [address] [address] Zonia Hoffman, RODDY 800 [facility] [address] [place] [address] 11/13/2024 3:00 PM EDT Appointment [facility] Infusion 800 [place] [address] 11/14/2024 1:00 PM EDT Appointment [facility] [address] [place] [address] 11/15/2024 1:00 PM EDT Appointment [facility] Infusion 800 [place] [address] 11/16/2024 1:00 PM EDT Appointment [facility] 800 [place] [address] 11/17/2024 3:00 PM EDT Appointment [facility] 2 [address] [place] [address] 11/18/2024 3:00 PM EDT Appointment [facility] 1 [address] [place] [address] 11/19/2024 2:00 PM EDT Appointment [facility] 2 [address] [place] [address] documented as of this encounter Visit Diagnoses Not on filedocumented in this encounter Additional Health Concerns Assessment Noted Time A fall risk assessment has been complete d for the patient 09/19/2024 8:38 AM EDT A Body Mass Index follow-up plan has been documented for the patient 05/28/2024 1:52 PM EST documented as of this encounter Care Teams Inspector Purchased Parts Relationship Specialty Start Date End Date Jevon Vazquez MD [address] [place] [address] #1 #1 Julien JOSEP [id number] PCP - General 03/23/22 documented as of this encounter
--- OUTSIDE RECORDS SUMMARY | 2024-10-29 09:09 | XMS_ITS | Encounter Summary ---
Author Organization Healthcare Address [address] [place] [address] Care Team Providers Care Test Specialist Name Role Phone Jevon Vazquez MD Primary Care Provider [phone] Encounter Details Date Type Department Care Team [...] Hematology/BMT and Cellular Therapy Program [address] [address] 11/13/2024 1:30 PM EDT Office Visit [facility] Hematology/BMT and Cellular Therapy Program [address] [address] Zonia Hoffman, RODDY 800 [facility] [address] [place] [address] 11/13/2024 3:00 PM EDT Appointment [facility] Infusion 800 [place] [address] 11/14/2024 1:00 PM EDT Appointment [facility] [address] [place] [address] 11/15/2024 1:00 PM EDT Appointment [facility]fusion 800 [place] [address] 11/16/2024 1:00 PM EDT Appointment [facility] 800 [place] [address] 11/17/2024 3:00 PM EDT Appointment [facility] 2 7[address] [place] [address] 11/18/2024 3:00 PM EDT Appointment [facility] 1 [address] [place] [address] 11/19/2024 2:00 PM EDT Appointment [facility] 2 [address] [place] [address] documented as of this encounter Visit Diagnoses Not on filedocumented in this encounter Additional Health Concerns Assessment Noted Time A fall risk assessment has been complete d for the patient 09/19/2024 8:38 AM EDT A Body Mass Index follow-up plan has been documented for the patient 05/28/2024 1:52 PM EST documented as of this encounter Care Teams Test Specialist Relationship Specialty Start Date End Date Jevon Vazquez MD [address] [place] [address] #1 #1 Julien JOSEP [id number] PCP - General 03/23/22 documented as of this encounter
[2024-10-29 09:10] VITALS: BMI 21.7
[2024-10-29 09:19] LABS: Hematocrit 27.6 % (37.0-47.0); Hemoglobin 9.6 g/dL (12.2-16.2); Immature Granulocytes % 0.4 %; Mean Corpuscular HGB Conc 34.8 g/dL (31.8-35.4); Mean Corpuscular Hemoglobin 36.1 pg (27.0-31.2); Mean Corpuscular Volume 103.8 fl (81-99); Nucleated Red Blood Cells % 0 %; Red Blood Count 2.66 M/mm3 (4.20-5.40); Red Cell Distribution Width-SD 82.4 fL; White Blood Count 2.6 K/mm3 (4.8-10.8)
[2024-10-29 09:21] LABS: Platelet Count 16 K/mm3 (142-424)
[2024-10-29] MEDS: SODIUM CHLORIDE 0.9% 10ML FLUSH SYRINGE 10 ML IV (09:23)
[2024-10-29 09:34] LABS: Alanine Aminotransferase 12 U/L (12-78); Albumin Level 3.7 g/dl (3.5-5.0); Albumin/Globulin Ratio 1.8 (1.1-1.8); Alkaline Phosphatase 40 U/L (38-126); Anion Gap 14.9 mEq/L (5-15); Aspartate Amino Transferase 35 U/L (14-36); Bilirubin,Total 0.4 mg/dl (0.2-1.3); Blood Urea Nitrogen 29 mg/dl (7-17); Calcium 10.1 mg/dl (8.4-10.2); Carbon Dioxide 24 mmol/L (22.0-30.0); Chloride 104 mmol/L (98-107); Creatinine Clearance Estimated 38 mL/min (50-200); Creatinine,Serum 1.20 mg/dl (0.52-1.04); Estimated Glomerular Filt Rate 44 ml/min (>60); GFR (African American) 53 ML/MIN (>60); Globulin 2.1 g/dL (1.3-3.2); Glucose 115 mg/dl (74-100); Potassium 3.9 mmoL/L (3.5-5.1); Sodium 139 mmol/L (136-145); Total Protein,Serum 5.8 g/dl (6.3-8.2)
== END 2024-10-29 09:25 | disposition home or self-care (01) ==
LOC: INF 09:05
PROVIDERS: PCP Family Medicine; Visit Provider Internal Medicine Medical Oncology
DX: C92.00 Acute myeloblastic leukemia, not having achieved remission (principal)
CPT/HCPCS: 36591; 80053; 85025; J1642

== ENCOUNTER 2024-10-31 08:55 | Outpatient (CLI) | payer MEDICARE, BC, SELFPAY ==
--- OUTSIDE RECORDS SUMMARY | 2024-09-19 07:30 | XMS_ITS | Encounter Summary ---
Author Organization [facility] Address [address] [place] [address] Care Team Providers Care Corn Crop Supervisor Name Role Phone Jevon Vazquez MD Primary Care Provider [phone] Reason for Visit * Reason Comments Nurse Visit Encounter Details Date Type Department Care Team ([facility] Contact Info) Description 09/19/2024 7:30 AM EDT Clinical Support [facility] Hematology/BMT and Cellular Therapy Program [address] [phone] Social History Tobacco Use Types Packs/Day Years [...] Upcoming Encounters Date Type Department Care Team ([facility] Contact Info) Description 11/13/2024 1:00 PM EDT Clinical Support [facility] Hematology/BMT and Cellular Therapy Program [address] [phone] 11/13/2024 1:30 PM EDT Office Visit [facility] Hematology/BMT and Cellular Therapy Program [address] [phone] Zonia Hoffman, CHIEF OF HARBOR PATROL 800 [facility] [address] [place] [address] 11/13/2024 3:00 PM EDT Appointment [facility] Infusion 800 [place] [address] 11/14/2024 1:00 PM EDT Appointment [facility] [address] [place] [address] 11/15/2024 1:00 PM EDT Appointment [facility] [address] [place] [address] 11/16/2024 1:00 PM EDT Appointment [facility] [address] [place] [address] 11/17/2024 3:00 PM EDT Appointment [facility] 2 [address] [place] [address] 11/18/2024 3:00 PM EDT Appointment [facility] 1 [address] [place] [address] 11/19/2024 2:00 PM EDT Appointment [facility] 2 [address] [place] [address] documented as of this encounter Visit Diagnoses Not on filedocumented in this encounter Additional Health Concerns Assessment Noted Time A fall risk assessment has been complete d for the patient 09/19/2024 8:38 AM EDT A Body Mass Index follow-up plan has been documented for the patient 05/28/2024 1:52 PM EST documented as of this encounter Care Teams Corn Crop Supervisor Relationship Specialty Start Date End Date Jevon Vazquez MD [address] [place] [address] #1 #1 [place] [address] PCP - General 03/23/22 documented as of this encounter
--- OUTSIDE RECORDS SUMMARY | 2024-09-19 09:30 | XMS_ITS | Encounter Summary ---
Author Organization Healthcare Address [address] [place] [address] Care Team Providers Care Overlay Plastician Name Role Phone Jevon Vazquez MD Primary Care Provider [phone] Reason for Visit * Reason Comments Follow-up Encounter Details Date Type Department Care Team (Latest Contact Info) Description 09/19/2024 9:30 AM EDT Clinical Support [facility] [address] [place] [address] Acute myeloid leukemia not having achieved remission [...] Upcoming Encounters Date Type Department Care Team ([facility] st Contact Info) Description 11/13/2024 1:00 PM EDT Clinical Support [facility]ology/BMT and Cellular Therapy Program [address] [place] [address] 11/13/2024 1:30 PM EDT Office Visit [facility]ology/BMT [facility] Cellular Therapy Program [address] [place] [address] Zonia Hoffman, HOT END OPERATOR 800 [facility] [address] [place] [address] 11/13/2024 3:00 PM EDT Appointment [facility] [address] [place] [address] 11/14/2024 1:00 PM EDT Appointment [facility] [address] [place] [address] 11/15/2024 1:00 PM EDT Appointment [facility] [address] [place] [address] 11/16/2024 1:00 PM EDT Appointment [facility] [address] [place] [address] 11/17/2024 3:00 PM EDT Appointment [facility] Infusion Clinic 2 [address] [place] [address] 11/18/2024 3:00 PM EDT Appointment [facility] Infusion Clinic 1 [address] [place] [address] 11/19/2024 2:00 PM EDT Appointment [facility] Infusion Clinic 2 [address] [place] [address] documented as of this encounter Procedures Procedure Name Priority Date/Time Associated Diagnosis Comments PLATELET COUNT, BLOOD STAT 09/19/2024 10:04 AM EDT PREPARE PLATELETS Routine 09/19/2024 9:0 8 AM EDT documented in this encounter Results * (ABNORMAL) Platelet count (09/19/2024 10:04 AM EDT) Platelet Count 61(L) 155 - 369 10*3/uL LAB HEMATOLOGY METHOD 09/19/2024 10:19 AM EDT [facility] Blood Blood sample taken from central line / Unknown (Port) Long-term Catheter / Unknown 09/19/2024 10:04 AM EDT 09/19/2024 10:18 AM EDT us New Mckinney MD LAB BLOOD ORDERABLES Final Re sult [facility] [address] [place] [address] * Transfuse platelets, Irradiated (09/19/2024 10:02 AM EDT) us Lexi Ferraro APRN BLOOD TRANSFUSION ORDERABL ES Final Result * Prepare Leukocyte Reduced Platelets (09/19/2024 9:08 AM EDT) Product Code [id number] CH BLOO D BANK Dispense Status Transfused BLOOD BANK Blood Expiration Date [id number] BLOOD BANK Unit Number [id number] CH B LOOD BANK Product Blood Type 6200 BLOOD BANK Blood Type A+ CH BLOOD BANK us Provider Not In System BLOOD BANK PRODUCT ORD ERABLES Final Result BLOOD BANK [address] documented in this encounter Visit Diagnoses [...] documented as of this encounter Care Teams Overlay Plastician Relationship Specialty Start Date End Date Jevon Vazquez MD [address] [place] [address] #1 #1 [place] [id number] PCP - General 03/23/22 documented as of this encounter
--- OUTSIDE RECORDS SUMMARY | 2024-09-19 12:00 | XMS_ITS | Encounter Summary ---
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) Procedures Leukemia/Lymphoma - Immunophenotyping by Flow Cytometry New Mckinney MD 800 [facility] [address] [address] Phone: tel: fax: Referral ID Status Reason Start Date Expiration Date V isits Requested Visits Authorized [id number] Authorized 09/11/2024 03/13/2026 1 1 Encounter Details Date Type Department Care Team (Latest Contact Info) Description 09/19/2024 12:00 PM EDT Procedure Visit [facility] Hematology/BMT and Cellular Therapy Program [address] [address] Lexi Ferraro, RODDY 800 [facility] [address] [address] Acute myeloid leukemia not having [...] to surronding structures. Alternatives discussed: Delayed treatment [place] protocol: Procedure explained and questions answered to [...] Upcoming Encounters Date Type Department Care Team ([facility] st Contact Info) Description 11/13/2024 1:00 PM EDT Clinical Support [facility] Hematology/BMT and Cellular Therapy Program [address] [address] 11/13/2024 1:30 PM EDT Office Visit [facility] Hematology/BMT and Cellular Therapy Program [address] [address] Zonia Hoffman APRN 800 [facility] [address] [place] [address] 11/13/2024 3:00 PM EDT Appointment [facility] Infusion [address] [place] [address] 11/14/2024 1:00 PM EDT Appointment [facility] [address] [place] [address] 11/15/2024 1:00 PM EDT Appointment [facility] [address] [place] [address] 11/16/2024 1:00 PM EDT Appointment [facility] [address] [place] [address] 11/17/2024 3:00 PM EDT Appointment [facility] 2 [address] [place] [address] 11/18/2024 3:00 PM EDT Appointment [facility] 1 [address] [place] [address] 11/19/2024 2:00 PM EDT Appointment [facility] 2 [address] [place] [address] documented as of this encounter Procedures Procedure [...] to surronding structures. Alternatives discussed: Delayed treatment [place] protocol: Procedure explained and questions answered to [...] [facility] [address] [place] [address] * Myeloid Focused Panel, 50 gene (09/19/2024 7:29 AM EDT) Interpretation The following two (2) genes, TP53 and DNMT3A, with persistent variants have been detected in this bone marrow specimen. The variant, p.Bej864Iuk, in TP53 gene and the variant, p.Eli704oer, in the RUNX 1 gene are not detectable at current cutoff and coverage established in this lab. Gene: TP53 Mutation: c.814G>A; p.Eia262Jxx Allele Frequency (%): 37% (45% Dec 2023) ID: [id number] Gene: DNMT3A Mutation: c.1522delC; p.[id number] 3 Allele Frequency (%): 36% (48% Dec 2023) Additional Details on Mutation Identified: Gene Transcript Genome Chrom Coordinate RefVar DNMT3A NM_022552.4 Hg19 2 [id number] delC TP53 NM_000546.5 Hg19 17 [id number] G>A 09/29/2024 4:05 PM EDT [facility] Methodology The following 50 genes were [...] then sequenced on the Illumina NextSeq 2000 ([employer], [place]). A custom bioinformatics pipeline aligns [...] of hematologic malignancies. 09/29/2024 4:05 PM T [facility] Disclaimer This test was developed and its performance characteristics determined by the Clinical Molecular and Genomic Pathology Laboratory at the [facility]. It has not been cleared or [...] clinical laboratory testing. 09/29/2024 4:05 PM EDT [facility] Pathologist Signature Reviewed by: Corey Tejada 09/29/2024 4:05 PM [facility] Bone Marrow Specimen from bone marrow obtained by aspiration / Unknown Non-blood Collection / Unknown 09/19/2024 7:29 AM EDT 09/19/2024 12:03 PM EDT us New Mckinney MD LAB MOLECULAR DIAGNOSTICS ORD ERABLES Final Result [facility] [address] [place] [address], * Leukemia/Lymphoma - Immunophenotyping by Flow Cytometry [...] by the Immuno-Molecular Pathology Laboratory at the [facility]. It has not been cleared or [...] [facility] [address] [place] [address] * (ABNORMAL) CBC and differential (09/19/2024 7:29 AM EDT) WBC Count 2.70(L) 3.70 - 10.30 10*3/uL LAB HEMATOLOGY METHOD 09/19/2024 9:13 AM EDT [facility] RBC Count 1.86(L) 3.90 - 5.20 10*6/uL LAB HEMATOLOGY METHOD 09/19/2024 9:13 AM EDT [facility] HGB 7.1(L) 11.2 - 15.7 g/dL LAB HEMATOLOGY METHOD 09/19/2024 9:13 AM EDT [facility] HCT 21.5(L) 34.0 - 45.0 % LAB HEMATOLOGY METHOD 09/19/2024 9:13 AM EDT [facility] Platelet Count 14(LL) 155 - 369 10*3/uL LAB HEMATOLOGY METHOD 09/19/2024 9:13 AM EDT [facility] MCV 116(H) 79 - 98 fL LAB HEMATOLOGY METHOD 09/19/2024 9:13 AM EDT [facility] MCH 38.2(H) 26.0 - 32.0 pg LAB HEMATOLOGY METHOD 09/19/2024 9:13 AM EDT [facility] MCHC 33.0 30.7 - 35.5 g/dL LAB HEMATOLOGY METHOD 09/19/2024 9:13 AM EDT [facility] RDW 21.8(H) 11.5 - 14.5 % LAB HEMATOLOGY METHOD 09/19/2024 9:13 AM EDT [facility] MPV 13.5(H) 8.8 - 12.5 fL LAB HEMATOLOGY METHOD 09/19/2024 9:13 AM EDT [facility] nRBC 0.0 <=0.0 per 100 WBCs LAB HEMATOLOGY METHOD 09/19/2024 9:13 AM EDT [facility] Differential Type Automated LAB HEMATOLOGY METHOD 09/19/2024 9:13 AM EDT [facility] Neutrophils % 51 % LAB HEMATOLOGY METHOD 09/19/2024 9:13 AM EDT [facility] Lymphocytes % 41 % LAB HEMATOLOGY METHOD 09/19/2024 9:13 AM EDT [facility] Monocytes % 7 % LAB HEMATOLOGY METHOD 09/19/2024 9:13 AM EDT [facility] Eosinophils % 1 % LAB HEMATOLOGY METHOD 09/19/2024 9:13 AM EDT [facility] Basophils % 0 % LAB HEMATOLOGY METHOD 09/19/2024 9:13 AM EDT [facility] Immature Granulocytes % 0 % LAB HEMATOLOGY METHOD 09/19/2024 9:13 AM EDT [facility] Neutrophils Absolute 1.35(L) 1.60 - 6.10 10*3/uL LAB HEMATOLOGY METHOD 09/19/2024 9:13 AM EDT [facility] Lymphocytes Absolute 1.10(L) 1.20 - 3.90 10*3/uL LAB HEMATOLOGY METHOD 09/19/2024 9:13 AM EDT [facility] Monocytes Absolute 0.20(L) 0.30 - 0.90 10*3/uL LAB HEMATOLOGY METHOD 09/19/2024 9:13 AM EDT [facility] Eosinophils Absolute 0.03 0.00 - 0.50 10*3/uL LAB HEMATOLOGY METHOD 09/19/2024 9:13 AM EDT [facility] Basophils Absolute 0.01 0.00 - 0.10 10*3/uL LAB HEMATOLOGY METHOD 09/19/2024 9:13 AM EDT [facility] Immature Granulocytes Absolute 0.01 0.00 - 0.06 10*3/uL LAB HEMATOLOGY METHOD 09/19/2024 9:13 AM EDT [facility] Blood Blood sample taken from central line / Unknown (Port) Long-term Catheter / Unknown 09/19/2024 7:29 AM EDT 09/19/2024 8:08 AM EDT Narrative [facility] - 09/19/2024 9:13 AM EDT Therapeutic decision making should be based on absolute values, rather than percentages. us New Mckinney MD LAB BLOOD ORDERABLES Final Re sult [facility] [address] [place] [address] * Bone marrow exam (09/19/2024 7:29 AM EDT) Case Report Bone Marrow Case: [id number] Authorizing Provider: New Mckinney MD Collected: 09/19/2024 0729 Ordering Location: [facility] Hematology/BMT and Received: 09/19/2024 1216 Cellular [...] in this bone marrow specimen. The variant, p.Udi953Uhg, in TP53 gene and the variant, p.Ywf867jba, in the RUNX 1 gene are not detectable at current cutoff and coverage established in this lab. Gene: TP53 Mutation: c.814G>A; p.Eze262Jjz Allele Frequency (%): 37% (45% Dec 2023) ID: [id number] Gene: DNMT3A Mutation: c.1522delC; p.Woi029TceqiTjn5 43 Allele Frequency (%): 36% (48% Dec [...] at the [facility], [address] [place] [address]. All tests reported here, except those addressing [...] OF INCREASED BLASTS OR ABNORMAL LYMPHOID POPULATIONS ([id number]). 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
--- OUTSIDE RECORDS SUMMARY | 2024-09-30 09:00 | XMS_ITS | Encounter Summary ---
Author Organization Healthcare Address [address] [place] [address] Care Team Providers Care Fur Coat Sewer Name Role Phone Jevon Vazquez MD Primary Care Provider [phone] Reason for Visit * Reason Comments Labs Only Encounter Details Date Type Department Care Team ([facility] Contact Info) Description 09/30/2024 9:00 AM EDT Clinical Support [facility] Hematology/BMT and Cellular Therapy Program [address] [place] [phone] Jyoti Kemp Acute myeloid leukemia not having [...] ([facility] Contact Info) Description 11/13/2024 1:00 PM EDT Clinical Support [facility] Hematology/BMT and Cellular Therapy Program [address] [phone] 11/13/2024 1:30 PM EDT Office Visit [facility] Hematology/BMT and Cellular Therapy Program [address] [phone] Zonia Hofmfan, TAPE KELLER OPERATOR 800 [facility] [address] [place] [phone] 11/13/2024 3:00 PM EDT Appointment [facility] [address] [place] [address] 11/14/2024 1:00 PM EDT Appointment [facility] [address] [place] [address] 11/15/2024 1:00 PM EDT Appointment [facility] [address] [place] [address] 11/16/2024 1:00 PM EDT Appointment [facility] [address] [place] [address] 11/17/2024 3:00 PM EDT Appointment [facility] 2 [address] [place] [address] 11/18/2024 3:00 PM EDT Appointment [facility] 1 [address] [place] [address] 11/19/2024 2:00 PM EDT Appointment [facility] 2 [address] [place] [address] documented as of this encounter Procedures Procedure [...] - 99 mg/dL 09/30/2024 10:20 AM EDT [facility] BUN, Plasma 21 8 - 23 mg/dL 09/30/2024 10:20 AM EDT [facility] Creatinine, Plasma 1.00 0.60 - 1.10 mg/dL 09/30/2024 10:20 AM EDT [facility] BUN/Creatinine Ratio 21 09/30/2024 10:20 AM EDT [facility] Sodium, Plasma 137 136 - 145 mmol/L 09/30/2024 10:20 AM EDT [facility] Potassium, Plasma 3.8 3.6 - 4.9 mmol/L 09/30/2024 10:20 AM EDT [facility] Chloride, Plasma 107 97 - 107 mmol/L 09/30/2024 10:20 AM EDT [facility] CO2, Plasma 22 22 - 29 mmol/L 09/30/2024 10:20 AM EDT [facility] Anion Gap 8 6 - 16 mmol/L 09/30/2024 10:20 AM EDT [facility] Total Calcium, Plasma 9.8 8.9 - 10.2 mg/dL 09/30/2024 10:20 AM EDT [facility] Total Protein 5.9(L) 6.3 - 7.9 g/dL 09/30/2024 10:20 AM EDT [facility] Albumin, Plasma 3.8 3.5 - 5.2 g/dL 09/30/2024 10:20 AM EDT [facility] AST, Plasma 28 10 - 35 U/L 09/30/2024 10:20 AM EDT [facility] ALT, Plasma 14 10 - 35 U/L 09/30/2024 10:20 AM EDT [facility] Alkaline Phosphatase, Plasma 34(L) 46 - 142 U/L 09/30/2024 10:20 AM EDT [facility] Total Bilirubin, Plasma 0.3 0.2 - 1.1 mg/dL 09/30/2024 10:20 AM EDT [facility] eGFRcr 59.6 mL/min/1.7 3m*2 09/30/2024 10:20 AM EDT [facility] Comment:Reported eGFRcr in m L/min/1.73m2 is based the CKD-EPI 2020 equation that does not use a race coefficient. Blood Venous blood specimen / Unknown (Port) Long-term Catheter / Unknown 09/30/2024 9:11 AM EDT 09/30/2024 9:50 AM EDT us Zonia Hardy Crystalsky TAPE KELLER OPERATOR LAB BLOOD ORDERABLES Final Res ult [facility] [address] [place] [address] * (ABNORMAL) CBC and Differential (09/30/2024 9:11 AM EDT) WBC Count 3.34(L) 3.70 - 10.30 10*3/uL LAB HEMATOLOGY METHOD 09/30/2024 11:07 AM EDT [facility] RBC Count 1.91(L) 3.90 - 5.20 10*6/uL LAB HEMATOLOGY METHOD 09/30/2024 11:07 AM EDT [facility] HGB 7.7(L) 11.2 - 15.7 g/dL LAB HEMATOLOGY METHOD 09/30/2024 11:07 AM EDT [facility] HCT 22.8(L) 34.0 - 45.0 % LAB HEMATOLOGY METHOD 09/30/2024 11:07 AM EDT [facility] Platelet Count 17(LL) 155 - 369 10*3/uL LAB HEMATOLOGY METHOD 09/30/2024 11:07 AM EDT [facility] MCV 119(H) 79 - 98 fL LAB HEMATOLOGY METHOD 09/30/2024 11:07 AM EDT [facility] MCH 40.3(H) 26.0 - 32.0 pg LAB HEMATOLOGY METHOD 09/30/2024 11:07 AM EDT [facility] MCHC 33.8 30.7 - 35.5 g/dL LAB HEMATOLOGY METHOD 09/30/2024 11:07 AM EDT [facility] RDW 18.7(H) 11.5 - 14.5 % LAB HEMATOLOGY METHOD 09/30/2024 11:07 AM EDT [facility] MPV 11.1 8.8 - 12.5 fL LAB HEMATOLOGY METHOD 09/30/2024 11:07 AM EDT [facility] nRBC 0.0 <=0.0 per 100 WBCs LAB HEMATOLOGY METHOD 09/30/2024 11:07 AM EDT [facility] Differential Type Automated LAB HEMATOLOGY METHOD 09/30/2024 11:07 AM EDT [facility] Neutrophils % 65 % LAB HEMATOLOGY METHOD 09/30/2024 11:07 AM EDT [facility] Lymphocytes % 26 % LAB HEMATOLOGY METHOD 09/30/2024 11:07 AM EDT [facility] Monocytes % 7 % LAB HEMATOLOGY METHOD 09/30/2024 11:07 AM EDT [facility] Eosinophils % 1 % LAB HEMATOLOGY METHOD 09/30/2024 11:07 AM EDT [facility] Basophils % 1 % LAB HEMATOLOGY METHOD 09/30/2024 11:07 AM EDT [facility] Immature Granulocytes % 0 % LAB HEMATOLOGY METHOD 09/30/2024 11:07 AM EDT [facility] Neutrophils Absolute 2.17 1.60 - 6.10 10*3/uL LAB HEMATOLOGY METHOD 09/30/2024 11:07 AM EDT [facility] Lymphocytes Absolute 0.87(L) 1.20 - 3.90 10*3/uL LAB HEMATOLOGY METHOD 09/30/2024 11:07 AM EDT [facility] Monocytes Absolute 0.24(L) 0.30 - 0.90 10*3/uL LAB HEMATOLOGY METHOD 09/30/2024 11:07 AM EDT [facility] Eosinophils Absolute 0.03 0.00 - 0.50 10*3/uL LAB HEMATOLOGY METHOD 09/30/2024 11:07 AM EDT [facility] Basophils Absolute 0.02 0.00 - 0.10 10*3/uL LAB HEMATOLOGY METHOD 09/30/2024 11:07 AM EDT [facility] Immature Granulocytes Absolute 0.01 0.00 - 0.06 10*3/uL LAB HEMATOLOGY METHOD 09/30/2024 11:07 AM EDT [facility] Blood Venous blood specimen / Unknown (Port) Long-term Catheter / Unknown 09/30/2024 9:11 AM EDT 09/30/2024 9:34 AM EDT [facility] - 09/30/2024 11:07 AM EDT Therapeutic decision making should be based on absolute values, rather than percentages. us Zonia Hoffman TAPE KELLER OPERATOR LAB BLOOD ORDERABLES Final Res ult [facility] [address] [place] [address] documented in this encounter Visit Diagnoses Diagnosis [...] as of this encounter Care Teams Fur Coat Sewer Relationship Specialty Start Date End Date Jevon Vazquez MD [address] [place] [address] [address] [place] [address] PCP - General 03/23/22 documented as of this encounter
--- OUTSIDE RECORDS SUMMARY | 2024-09-30 09:30 | XMS_ITS | Encounter Summary ---
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 female. Referring Physician: Zonia Hoffman, FINANCIAL REPORTING ANALYST 800 [facility] [address] [address] Primary Care Provider: Jevon Vazquez MD Chief [...] k/??L. 12/2023- seen by Dr. Manzano in [facility] for evaluation of anemia and lymphocytosis. 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 Next generation sequencing: Abnormal: TP53 (c.814G>A; p.[id number]) frequency 45%, DMNT3A (c.1522delC; p.[id number]) frequency 48%, RUNX1 (c.336_338delGCC; p.Ruz254dqc) frequency 35% Azacitidine + Venetoclax Cycle 1: [...] - Continue local lab checks MWF at [facility] Allogenic transplant planning. 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 However, given her older age > 70, she would benefit from a geriatric BMT program and will make referrals should she be interested. Expected pancytopenia related to chemotherapy/AML. Check CBC x 3 times/week at [facility] Labs reviewed today, Hgb 7.7 , platelets [...] reviewing results, and documenting. RODDY Cristina [facility] HEMATOLOGY/BMT AND CELLULAR THERAPY PROGRAM 800 [facility] [phone] 40 minutes was spent on this encounter; [...] Upcoming Encounters Date Type Department Care Team ([facility] st Contact Info) Description 11/13/2024 1:00 PM EDT Clinical Support [facility] Hematology/BMT and Cellular Therapy Program 750 [facility], [address] [place] [address] [place] [address] 11/13/2024 1:30 PM EDT Office Visit [facility] Hematology/BMT and Cellular Therapy Program [address] [place] [address] Zonia Hoffman, FINANCIAL REPORTING ANALYST [address] [facility] [address] [place] [phone] 11/13/2024 3:00 PM EDT Appointment [facility] [address] [place] [address] 11/14/2024 1:00 PM EDT Appointment [facility] [address] [place] [address] 11/15/2024 1:00 PM EDT Appointment [facility] [address] [place] [address] 11/16/2024 1:00 PM EDT Appointment [facility] [address] [place] [address] 11/17/2024 3:00 PM EDT Appointment [facility] 2 [address] [place] [address] 11/18/2024 3:00 PM EDT Appointment [facility] 1 [address] [place] [address] 11/19/2024 2:00 PM EDT Appointment [facility] 2 [address] [place] [address] documented as of this encounter Results * (ABNORMAL) Comprehensive Metabolic Panel, Plasma (09/30/2024 9:11 AM EDT) [facility] Glucose, Plasma 135(H) 74 - 99 mg/dL 09/30/2024 10:20 AM EDT [facility] BUN, Plasma 21 8 - 23 mg/dL 09/30/2024 10:20 AM EDT [facility] Creatinine, Plasma 1.00 0.60 - 1.10 mg/dL 09/30/2024 10:20 AM EDT [facility] BUN/Creatinine Ratio 21 09/30/2024 10:20 AM EDT [facility] Sodium, Plasma 137 136 - 145 mmol/L 09/30/2024 10:20 AM EDT [facility] Potassium, Plasma 3.8 3.6 - 4.9 mmol/L 09/30/2024 10:20 AM EDT [facility] Chloride, Plasma 107 97 - 107 mmol/L 09/30/2024 10:20 AM EDT [facility] CO2, Plasma 22 22 - 29 mmol/L 09/30/2024 10:20 AM EDT [facility] Anion Gap 8 6 - 16 mmol/L 09/30/2024 10:20 AM EDT [facility] Total Calcium, Plasma 9.8 8.9 - 10.2 mg/dL 09/30/2024 10:20 AM EDT [facility] Total Protein 5.9(L) 6.3 - 7.9 g/dL 09/30/2024 10:20 AM EDT [facility] Albumin, Plasma 3.8 3.5 - 5.2 g/dL 09/30/2024 10:20 AM EDT [facility] AST, Plasma 28 10 - 35 U/L 09/30/2024 10:20 AM EDT [facility] ALT, Plasma 14 10 - 35 U/L 09/30/2024 10:20 AM EDT [facility] Alkaline Phosphatase, Plasma 34(L) 46 - 142 U/L 09/30/2024 10:20 AM EDT [facility] Total Bilirubin, Plasma 0.3 0.2 - 1.1 mg/dL 09/30/2024 10:20 AM EDT [facility] eGFRcr 59.6 mL/min/1.7 3m*2 09/30/2024 10:20 AM EDT [facility] Comment:Reported eGFRcr in m L/min/1.73m2 is based the CKD-EPI 2020 equation that does not use a race coefficient. Blood Venous blood specimen / Unknown (Port) Long-term Catheter / Unknown 09/30/2024 9:11 AM EDT 09/30/2024 9:50 AM EDT us Zonia Hoffman APRN LAB BLOOD ORDERABLES Final Res ult [facility] [address] [place] [address] * (ABNORMAL) CBC and Differential (09/30/2024 9:11 AM EDT) WBC Count 3.34(L) 3.70 - 10.30 10*3/uL LAB HEMATOLOGY METHOD 09/30/2024 11:07 AM EDT [facility] RBC Count 1.91(L) 3.90 - 5.20 10*6/uL LAB HEMATOLOGY METHOD 09/30/2024 11:07 AM EDT [facility] HGB 7.7(L) 11.2 - 15.7 g/dL LAB HEMATOLOGY METHOD 09/30/2024 11:07 AM EDT [facility] HCT 22.8(L) 34.0 - 45.0 % LAB HEMATOLOGY METHOD 09/30/2024 11:07 AM EDT [facility] Platelet Count 17(LL) 155 - 369 10*3/uL LAB HEMATOLOGY METHOD 09/30/2024 11:07 AM EDT [facility] MCV 119(H) 79 - 98 fL LAB HEMATOLOGY METHOD 09/30/2024 11:07 AM EDT [facility] MCH 40.3(H) 26.0 - 32.0 pg LAB HEMATOLOGY METHOD 09/30/2024 11:07 AM EDT [facility] MCHC 33.8 30.7 - 35.5 g/dL LAB HEMATOLOGY METHOD 09/30/2024 11:07 AM EDT [facility] RDW 18.7(H) 11.5 - 14.5 % LAB HEMATOLOGY METHOD 09/30/2024 11:07 AM EDT [facility] MPV 11.1 8.8 - 12.5 fL LAB HEMATOLOGY METHOD 09/30/2024 11:07 AM EDT [facility] nRBC 0.0 <=0.0 per 100 WBCs LAB HEMATOLOGY METHOD 09/30/2024 11:07 AM EDT [facility] Differential Type Automated LAB HEMATOLOGY METHOD 09/30/2024 11:07 AM EDT [facility] Neutrophils % 65 % LAB HEMATOLOGY METHOD 09/30/2024 11:07 AM EDT [facility] Lymphocytes % 26 % LAB HEMATOLOGY METHOD 09/30/2024 11:07 AM EDT [facility] Monocytes % 7 % LAB HEMATOLOGY METHOD 09/30/2024 11:07 AM EDT [facility] Eosinophils % 1 % LAB HEMATOLOGY METHOD 09/30/2024 11:07 AM EDT [facility] Basophils % 1 % LAB HEMATOLOGY METHOD 09/30/2024 11:07 AM EDT [facility] Immature Granulocytes % 0 % LAB HEMATOLOGY METHOD 09/30/2024 11:07 AM EDT [facility] Neutrophils Absolute 2.17 1.60 - 6.10 10*3/uL LAB HEMATOLOGY METHOD 09/30/2024 11:07 AM EDT [facility] Lymphocytes Absolute 0.87(L) 1.20 - 3.90 10*3/uL LAB HEMATOLOGY METHOD 09/30/2024 11:07 AM EDT [facility] Monocytes Absolute 0.24(L) 0.30 - 0.90 10*3/uL LAB HEMATOLOGY METHOD 09/30/2024 11:07 AM EDT [facility] Eosinophils Absolute 0.03 0.00 - 0.50 10*3/uL LAB HEMATOLOGY METHOD 09/30/2024 11:07 AM EDT [facility] Basophils Absolute 0.02 0.00 - 0.10 10*3/uL LAB HEMATOLOGY METHOD 09/30/2024 11:07 AM EDT [facility] Immature Granulocytes Absolute 0.01 0.00 - 0.06 10*3/uL LAB HEMATOLOGY METHOD 09/30/2024 11:07 AM EDT [facility] Blood Venous blood specimen / Unknown (Port) Long-term Catheter / Unknown 09/30/2024 9:11 AM EDT 09/30/2024 9:34 AM EDT Narrative [facility] - 09/30/2024 11:07 AM EDT Therapeutic decision making should be based on absolute values, rather than percentages. us Zonia Hoffman APRN LAB BLOOD ORDERABLES Final Res ult [facility] [address] [place] [address] documented in this encounter Visit Diagnoses Diagnosis [...] documented as of this encounter Care Teams Gearcase Assembler Relationship Specialty Start Date End Date Jevon Vazquez MD [address] [place] [address] #1 #1 [email or web address] [id number] PCP - General 03/23/22 documented as of this encounter
[2024-10-31 08:57] VITALS: BMI 21.8
--- OUTSIDE RECORDS SUMMARY | 2024-10-31 08:58 | XMS_ITS | Encounter Summary ---
Author Organization Healthcare Address [address] [place] [address] Care Team Providers Care Supervisor Cigar Processing Name Role Phone Jevon Vazquez MD Primary Care Provider [phone] Encounter Details Date Type Department Care Team [...] Hematology/BMT and Cellular Therapy Program [address] [address] 11/13/2024 1:30 PM EDT Office Visit [facility] Hematology/BMT and Cellular Therapy Program [address] [address] Zonia Hoffman, RODDY 800 [facility] [address] [place] [address] 11/13/2024 3:00 PM EDT Appointment [facility] 800 [place] [address] 11/14/2024 1:00 PM EDT Appointment [facility] [address] [place] [address] 11/15/2024 1:00 PM EDT Appointment [facility] [address] [place] [address] 11/16/2024 1:00 PM EDT Appointment [facility] [address] [place] [address] 11/17/2024 3:00 PM EDT Appointment [facility] 2 [address] [place] [address] 11/18/2024 3:00 PM EDT Appointment [facility] 1 [address] [place] [address] 11/19/2024 2:00 PM EDT Appointment [facility] 2 [address] [place] [address] documented as of this encounter Visit Diagnoses Not on filedocumented in this encounter Additional Health Concerns Assessment Noted Time A fall risk assessment has been complete d for the patient 09/19/2024 8:38 AM EDT A Body Mass Index follow-up plan has been documented for the patient 05/28/2024 1:52 PM EST documented as of this encounter Care Teams Supervisor Cigar Processing Relationship Specialty Start Date End Date Jevon Vazquez MD [address] [place] [address] #1 #1 Julien JOSEP [address] PCP - General 03/23/22 documented as of this encounter
--- OUTSIDE RECORDS SUMMARY | 2024-10-31 08:58 | XMS_ITS | Encounter Summary ---
Author Organization Healthcare Address [address] [place] [address] Care Team Providers Care Bed Rubber Name Role Phone Jevon Vazquez MD Primary Care Provider [phone] Encounter Details Date Type Department Care Team [...] Hematology/BMT and Cellular Therapy Program [address] [address] 11/13/2024 1:30 PM EDT Office Visit [facility] Hematology/BMT and Cellular Therapy Program [address] [phone] Zonia Hoffman, RODDY 800 [facility] [address] [place] [address] 11/13/2024 3:00 PM EDT Appointment [facility] 800 [place] [address] 11/14/2024 1:00 PM EDT Appointment [facility] [address] [place] [address] 11/15/2024 1:00 PM EDT Appointment [facility] 800 [place] [address] 11/16/2024 1:00 PM EDT Appointment [facility] 800 [place] [address] 11/17/2024 3:00 PM EDT Appointment [facility] 2 744 [place] [address] 11/18/2024 3:00 PM EDT Appointment [facility] 1 744 [place] [address] 11/19/2024 2:00 PM EDT Appointment [facility] 2 744 [place] [address] documented as of this encounter Visit Diagnoses Not on filedocumented in this encounter Additional Health Concerns Assessment Noted Time A fall risk assessment has been complete d for the patient 09/30/2024 9:33 AM EDT A Body Mass Index follow-up plan has been documented for the patient 05/28/2024 1:52 PM EST documented as of this encounter Care Teams Bed Rubber Relationship Specialty Start Date End Date Jevon Vazquez MD [address] [place] [address] #1 #1 Julien JOSEP [id number] PCP - General 03/23/22 documented as of this encounter
--- OUTSIDE RECORDS SUMMARY | 2024-10-31 08:58 | XMS_ITS | Encounter Summary ---
Author Organization Healthcare Address [address] [place] [address] Care Team Providers Care Degreasing Solution Reclaimer Name Role Phone Jevon Vazquez MD Primary Care Provider [phone] Encounter Details Date Type Department Care Team [...] Hematology/BMT and Cellular Therapy Program [address] [address] 11/13/2024 1:30 PM EDT Office Visit [facility] Hematology/BMT and Cellular Therapy Program [address] [address] Zonia Hoffman, RODDY 800 [facility] [address] [place] [address] 11/13/2024 3:00 PM EDT Appointment [facility] 800 [place] [address] 11/14/2024 1:00 PM EDT Appointment [facility] [address] [place] [address] 11/15/2024 1:00 PM EDT Appointment [facility] 800 [place] [address] 11/16/2024 1:00 PM EDT Appointment [facility] 800 [place] [address] 11/17/2024 3:00 PM EDT Appointment [facility] 2 744 [place] [address] 11/18/2024 3:00 PM EDT Appointment [facility] 1 744 [place] [address] 11/19/2024 2:00 PM EDT Appointment [facility] 2 744 [place] [address] documented as of this encounter Visit Diagnoses Not on filedocumented in this encounter Additional Health Concerns Assessment Noted Time A fall risk assessment has been complete d for the patient 09/30/2024 9:33 AM EDT A Body Mass Index follow-up plan has been documented for the patient 05/28/2024 1:52 PM EST documented as of this encounter Care Teams Degreasing Solution Reclaimer Relationship Specialty Start Date End Date Jevon Vazquez MD [address] [place] [address] #1 #1 Julien JOSEP [id number] PCP - General 03/23/22 documented as of this encounter
--- OUTSIDE RECORDS SUMMARY | 2024-10-31 08:58 | XMS_ITS | Encounter Summary ---
Author Organization Healthcare Address [address] [place] [address] Care Team Providers Care Senior Service Aide Name Role Phone Jevon Vazquez MD Primary Care Provider [phone] Encounter Details Date Type Department Care Team [...] Hematology/BMT and Cellular Therapy Program [address] [address] 11/13/2024 1:30 PM EDT Office Visit [facility] Hematology/BMT and Cellular Therapy Program [address] [address] Zonia Hoffman, RODDY 800 [facility] [address] [place] [address] 11/13/2024 3:00 PM EDT Appointment [facility] 800 [place] [address] 11/14/2024 1:00 PM EDT Appointment [facility] [address] [place] [address] 11/15/2024 1:00 PM EDT Appointment [facility] 800 [place] [address] 11/16/2024 1:00 PM EDT Appointment [facility] 800 [place] [address] 11/17/2024 3:00 PM EDT Appointment [facility] 2 744 [place] [address] 11/18/2024 3:00 PM EDT Appointment [facility] 1 744 [place] [address] 11/19/2024 2:00 PM EDT Appointment [facility] 2 744 [place] [address] documented as of this encounter Visit Diagnoses Not on filedocumented in this encounter Additional Health Concerns Assessment Noted Time A fall risk assessment has been complete d for the patient 09/19/2024 8:38 AM EDT A Body Mass Index follow-up plan has been documented for the patient 05/28/2024 1:52 PM EST documented as of this encounter Care Teams Senior Service Aide Relationship Specialty Start Date End Date Jevon Vazquez MD [address] [place] [address] #1 #1 Julien JOSEP [id number] PCP - General 03/23/22 documented as of this encounter
--- OUTSIDE RECORDS SUMMARY | 2024-10-31 08:58 | XMS_ITS | Encounter Summary ---
Author Organization Healthcare Address [address] [place] [address] Care Team Providers Care Academic Dean Name Role Phone Jevon Vazquez MD Primary Care Provider [phone] Encounter Details Date Type Department Care Team [...] Hematology/BMT and Cellular Therapy Program [address] [address] 11/13/2024 1:30 PM EDT Office Visit [facility] Hematology/BMT and Cellular Therapy Program [address] [address] Zonia Hoffman, RODDY 800 [facility] [address] [place] [address] 11/13/2024 3:00 PM EDT Appointment [facility] 800 [place] [address] 11/14/2024 1:00 PM EDT Appointment [facility] [address] [place] [address] 11/15/2024 1:00 PM EDT Appointment [facility] 800 [place] [address] 11/16/2024 1:00 PM EDT Appointment [facility] [address] [place] [address] 11/17/2024 3:00 PM EDT Appointment [facility] 2 744 [place] [address] 11/18/2024 3:00 PM EDT Appointment [facility] 1 744 [place] [address] 11/19/2024 2:00 PM EDT Appointment [facility] 2 [address] [place] [address] documented as of this encounter Visit Diagnoses Not on filedocumented in this encounter Additional Health Concerns Assessment Noted Time A fall risk assessment has been complete d for the patient 09/30/2024 9:33 AM EDT A Body Mass Index follow-up plan has been documented for the patient 05/28/2024 1:52 PM EST documented as of this encounter Care Teams Academic Dean Relationship Specialty Start Date End Date Jevon Vazquez MD [address] [place] [address] #1 #1 Julien JOSEP [id number] PCP - General 03/23/22 documented as of this encounter
--- OUTSIDE RECORDS SUMMARY | 2024-10-31 08:58 | XMS_ITS | Encounter Summary ---
Author Organization Healthcare Address [address] [place] [address] Care Team Providers Care Utility Worker [place] Name Role Phone Jevon Vazquez MD Primary Care Provider [phone] Encounter Details Date Type Department Care Team [...] Hematology/BMT and Cellular Therapy Program [address] [address] 11/13/2024 1:30 PM EDT Office Visit [facility] Hematology/BMT and Cellular Therapy Program [address] [address] Zonia Hoffman, RODDY 800 [facility] [address] [place] [address] 11/13/2024 3:00 PM EDT Appointment [facility] 800 [place] [address] 11/14/2024 1:00 PM EDT Appointment [facility] [address] [place] [address] 11/15/2024 1:00 PM EDT Appointment [facility] 800 [place] [address] 11/16/2024 1:00 PM EDT Appointment [facility] 800 [place] [address] 11/17/2024 3:00 PM EDT Appointment [facility] 2 [address] [place] [address] 11/18/2024 3:00 PM EDT Appointment [facility] 1 [address] [place] [address] 11/19/2024 2:00 PM EDT Appointment [facility] 2 [address] [place] [address] documented as of this encounter Visit Diagnoses Not on filedocumented in this encounter Additional Health Concerns Assessment Noted Time A fall risk assessment has been complete d for the patient 07/30/2024 8:29 AM EDT A Body Mass Index follow-up plan has been documented for the patient 05/28/2024 1:52 PM EST documented as of this encounter Care Teams Utility Worker [place] Relationship Specialty Start Date End Date Jevon Vazquez MD [address] [place] [address] #1 #1 Julien JOSEP [id number] PCP - General 03/23/22 documented as of this encounter
--- OUTSIDE RECORDS SUMMARY | 2024-10-31 08:58 | XMS_ITS | Encounter Summary ---
Author Organization [facility] Address [address] [place] [address] Care Team Providers Care Electric Hoist Operator Name Role Phone Jevon Vazquez MD Primary Care Provider [phone] Reason for Visit * Reason Comments Med Refill Encounter Details Date Type Department Care Team ([facility] Contact Info) Description 10/14/2024 Refill [facility] Hematology/BMT and Cellular Therapy Program [address] [phone] New Mckinney MD 800 [facility] [address] [place] [phone] Social History Tobacco Use Types Packs/Day Years [...] Care Team ([facility] Contact Info) Description 11/13/2024 1:00 PM EDT Clinical Support [facility] Hematology/BMT and Cellular Therapy Program [address] [phone] 11/13/2024 1:30 PM EDT Office Visit [facility] Hematology/BMT and Cellular Therapy Program [address] [address] Zonia Hoffman, PIPE OR STEAM FITTER FURNACE INSTALLER 800 [facility] [address] [place] [address] 11/13/2024 3:00 PM EDT Appointment [facility] 800 [place] [address] 11/14/2024 1:00 PM EDT Appointment [facility] [address] [place] [address] 11/15/2024 1:00 PM EDT Appointment [facility] [address] [place] [address] 11/16/2024 1:00 PM EDT Appointment [facility] [address] [place] [address] 11/17/2024 3:00 PM EDT Appointment [facility] 2 [address] [place] [address] 11/18/2024 3:00 PM EDT Appointment [facility] 1 [address] [place] [address] 11/19/2024 2:00 PM EDT Appointment [facility] 2 [address] [place] [address] documented as of this encounter Visit Diagnoses Not on filedocumented in this encounter Additional Health Concerns Assessment Noted Time A fall risk assessment has been complete d for the patient 09/30/2024 9:33 AM EDT A Body Mass Index follow-up plan has been documented for the patient 05/28/2024 1:52 PM EST documented as of this encounter Care Teams Electric Hoist Operator Relationship Specialty Start Date End Date Jevon Vazquez MD [address] [place] [address] #1 #1 JulienJOSEP [id number] PCP - General 03/23/22 documented as of this encounter
--- OUTSIDE RECORDS SUMMARY | 2024-10-31 08:58 | XMS_ITS | Encounter Summary ---
Author Organization [facility] Address [address] [place] [address] Care Team Providers Care Hris Administrator Name Role Phone Jevon Vazquez MD Primary Care Provider [phone] Encounter Details Date Type Department Care Team ([facility] Contact Info) Description 09/15/2024 Telephone [facility] Hematology/BMT and Cellular Therapy Program [address] [phone] Zonia Hoffman, MEN'S LOCKER ROOM ATTENDANT 800 [facility] [address] [place] [phone] Social History Tobacco Use Types Packs/Day Years [...] ([facility] Contact Info) Description 11/13/2024 1:00 PM EDT Clinical Support [facility] Hematology/BMT and Cellular Therapy Program [address] [phone] 11/13/2024 1:30 PM EDT Office Visit [facility] Hematology/BMT and Cellular Therapy Program [address] [phone] Zonia Hoffman, MEN'S LOCKER ROOM ATTENDANT 800 [facility] [address] [place] [address] 11/13/2024 3:00 PM EDT Appointment [facility] 800 [place] [address] 11/14/2024 1:00 PM EDT Appointment [facility] 800 [place] [address] 11/15/2024 1:00 PM EDT Appointment [facility] 800 [place] [address] 11/16/2024 1:00 PM EDT Appointment [facility] 800 [place] [address] 11/17/2024 3:00 PM EDT Appointment [facility] 2 744 [place] [address] 11/18/2024 3:00 PM EDT Appointment [facility] 1 7[address] [place] [address] 11/19/2024 2:00 PM EDT Appointment [facility] 2 [address] [place] [address] documented as of this encounter Visit Diagnoses Not on filedocumented in this encounter Additional Health Concerns Assessment Noted Time A fall risk assessment has been complete d for the patient 07/30/2024 8:29 AM EDT A Body Mass Index follow-up plan has been documented for the patient 05/28/2024 1:52 PM EST documented as of this encounter Care Teams Hris Administrator Relationship Specialty Start Date End Date Jevon Vazquez MD [address] [place] [address] #1 #1 Julien JOSEP [id number] PCP - General 03/23/22 documented as of this encounter
--- OUTSIDE RECORDS SUMMARY | 2024-10-31 08:58 | XMS_ITS | Encounter Summary ---
Author Organization Healthcare Address [address] [place] [address] Care Team Providers Care Agent Licensing Clerk Name Role Phone Jevon Vazquez MD Primary Care Provider [phone] Encounter Details Date Type Department Care Team [...] Hematology/BMT and Cellular Therapy Program [address] [address] 11/13/2024 1:30 PM EDT Office Visit [facility] Hematology/BMT and Cellular Therapy Program [address] [address] Zonia Hoffman, RODDY 800 [facility] [address] [place] [address] 11/13/2024 3:00 PM EDT Appointment [facility] 800 [place] [address] 11/14/2024 1:00 PM EDT Appointment [facility] [address] [place] [address] 11/15/2024 1:00 PM EDT Appointment [facility] 800 [place] [address] 11/16/2024 1:00 PM EDT Appointment [facility] 800 [place] [address] 11/17/2024 3:00 PM EDT Appointment [facility] 2 [address] [place] [address] 11/18/2024 3:00 PM EDT Appointment [facility] 1 [address]44 [place] [address] 11/19/2024 2:00 PM EDT Appointment [facility] 2 [address] [place] [address] documented as of this encounter Visit Diagnoses Not on filedocumented in this encounter Additional Health Concerns Assessment Noted Time A fall risk assessment has been complete d for the patient 09/30/2024 9:33 AM EDT A Body Mass Index follow-up plan has been documented for the patient 05/28/2024 1:52 PM EST documented as of this encounter Care Teams Agent Licensing Clerk Relationship Specialty Start Date End Date Jevon Vazquez MD [address] [place] [address] #1 #1 Julien JOSEP [id number] PCP - General 03/23/22 documented as of this encounter
--- OUTSIDE RECORDS SUMMARY | 2024-10-31 08:58 | XMS_ITS | Encounter Summary ---
Author Organization Healthcare Address [address] [place] [address] Care Team Providers Care Qc Scientist Name Role Phone Jevon Vazquez MD Primary Care Provider [phone] Encounter Details Date Type Department Care Team [...] Hematology/BMT and Cellular Therapy Program [address] [address] 11/13/2024 1:30 PM EDT Office Visit [facility] Hematology/BMT and Cellular Therapy Program [address] [address] Zonia Hoffman, RODDY 800 [facility] [address] [place] [address] 11/13/2024 3:00 PM EDT Appointment [facility]fusion 800 [place] [address] 11/14/2024 1:00 PM EDT Appointment [facility] [address] [place] [address] 11/15/2024 1:00 PM EDT Appointment [facility] 800 [place] [address] 11/16/2024 1:00 PM EDT Appointment [facility] 800 [place] [address] 11/17/2024 3:00 PM EDT Appointment [facility] 2 [address] [place] [address] 11/18/2024 3:00 PM EDT Appointment [facility] 1 [address]44 [place] [address] 11/19/2024 2:00 PM EDT Appointment [facility] 2 [address] [place] [address] documented as of this encounter Visit Diagnoses Not on filedocumented in this encounter Additional Health Concerns Assessment Noted Time A fall risk assessment has been complete d for the patient 07/30/2024 8:29 AM EDT A Body Mass Index follow-up plan has been documented for the patient 05/28/2024 1:52 PM EST documented as of this encounter Care Teams Qc Scientist Relationship Specialty Start Date End Date Jevon Vazquez MD [address] [place] [address] #1 #1 Julien JOSEP [id number] PCP - General 03/23/22 documented as of this encounter
--- OUTSIDE RECORDS SUMMARY | 2024-10-31 08:58 | XMS_ITS | Encounter Summary ---
Author Organization [facility] Address [address] [place] [address] Care Team Providers Care Tool Machine Set Up Operator Name Role Phone Jevon Vazquez MD Primary Care Provider [phone] Encounter Details Date Type Department Care Team ([facility] Contact Info) Description 09/19/2024 Telephone [facility] CC Hematology/BMT and Cellular Therapy Program [address] [place] [address] Romana Richmond RN [facility] Social History Tobacco [...] Hematology/BMT and Cellular Therapy Program [address] [place] [address] 11/13/2024 1:30 PM EDT Office Visit [facility] CC Hematology/BMT and Cellular Therapy Program 750 [facility] [address] [place] [address] Zonia Hoffman, SPORTS ACTIVITIES FOUL JUDGE 800 [facility] [address] [place] [address] 11/13/2024 3:00 PM EDT Appointment [facility] 800 [place] [address] 11/14/2024 1:00 PM EDT Appointment [facility] 800 [place] [address] 11/15/2024 1:00 PM EDT Appointment [facility] 800 [place] [address] 11/16/2024 1:00 PM EDT Appointment [facility] [address] [place] [address] 11/17/2024 3:00 PM EDT Appointment [facility] 2 [address] [place] [address] 11/18/2024 3:00 PM EDT Appointment [facility] 1 [address] [place] [address] 11/19/2024 2:00 PM EDT Appointment [facility] 2 [address] [place] [address] documented as of this encounter Visit Diagnoses Not on filedocumented in this encounter Additional Health Concerns Assessment Noted Time A fall risk assessment has been complete d for the patient 09/19/2024 8:38 AM EDT A Body Mass Index follow-up plan has been documented for the patient 05/28/2024 1:52 PM EST documented as of this encounter Care Teams Tool Machine Set Up Operator Relationship Specialty Start Date End Date Jevon Vazquez MD [address] [place] [address] #1 #1 CoatsJOSEP kumar [id number] PCP - General 03/23/22 documented as of this encounter
--- OUTSIDE RECORDS SUMMARY | 2024-10-31 08:58 | XMS_ITS | Encounter Summary ---
Author Organization [facility] Address [address] [place] [address] Care Team Providers Care President Practicing Urologist Name Role Phone Jevon Vazquez MD Primary Care Provider Reason for Visit * Reason Comments Med Refill Encounter Details Date Type Department Care Team ([facility] Contact Info) Description 09/12/2024 Refill [facility] Hematology/BMT and Cellular Therapy Program [address] [phone] New Mckinney MD 800 [facility] [address] [place] [phone] Social History Tobacco Use Types Packs/Day Years [...] Date Type Department Care Team ([facility] Contact Info) Description 11/13/2024 1:00 PM EDT Clinical Support [facility] Hematology/BMT and Cellular Therapy Program [address] [phone] 11/13/2024 1:30 PM EDT Office Visit [facility] Hematology/BMT and Cellular Therapy Program [address] [address] Zonia Hoffman, TYPEWRITER REPAIRER 800 [facility] [address] [place] [address] 11/13/2024 3:00 PM EDT Appointment [facility] 800 [place] [address] 11/14/2024 1:00 PM EDT Appointment [facility] [address] [place] [address] 11/15/2024 1:00 PM EDT Appointment [facility] 800 [place] [address] 11/16/2024 1:00 PM EDT Appointment [facility] 800 [place] [address] 11/17/2024 3:00 PM EDT Appointment [facility] 2 [address] [place] [address] 11/18/2024 3:00 PM EDT Appointment [facility] 1 [address] [place] [address] 11/19/2024 2:00 PM EDT Appointment [facility] 2 [address] [place] [address] documented as of this encounter Visit Diagnoses Not on filedocumented in this encounter Additional Health Concerns Assessment Noted Time A fall risk assessment has been complete d for the patient 07/30/2024 8:29 AM EDT A Body Mass Index follow-up plan has been documented for the patient 05/28/2024 1:52 PM EST documented as of this encounter Care Teams President Practicing Urologist Relationship Specialty Start Date End Date Jevon Vazquez MD [address] [place] [address] #1 #1 JulienJOSEP [id number] PCP - General 03/23/22 documented as of this encounter
--- OUTSIDE RECORDS SUMMARY | 2024-10-31 08:58 | XMS_ITS | Encounter Summary ---
Author Organization Healthcare Address [address] [place] [address] Care Team Providers Care Spread Cutter Name Role Phone Jevon Vazquez MD Primary Care Provider [phone] Encounter Details Date Type Department Care Team [...] Hematology/BMT and Cellular Therapy Program [address] [address] 11/13/2024 1:30 PM EDT Office Visit [facility] Hematology/BMT and Cellular Therapy Program [address] [phone] Zonia Hoffman, RODDY 800 [facility] [address] [place] [address] 11/13/2024 3:00 PM EDT Appointment [facility] 800 [place] [address] 11/14/2024 1:00 PM EDT Appointment [facility] [address] [place] [address] 11/15/2024 1:00 PM EDT Appointment [facility] [address] [place] [address] 11/16/2024 1:00 PM EDT Appointment [facility] [address] [place] [address] 11/17/2024 3:00 PM EDT Appointment [facility] 2 [address] [place] [address] 11/18/2024 3:00 PM EDT Appointment [facility] 1 [address] [place] [address] 11/19/2024 2:00 PM EDT Appointment [facility] 2 [address] [place] [address] documented as of this encounter Visit Diagnoses Not on filedocumented in this encounter Additional Health Concerns Assessment Noted Time A fall risk assessment has been complete d for the patient 09/19/2024 8:38 AM EDT A Body Mass Index follow-up plan has been documented for the patient 05/28/2024 1:52 PM EST documented as of this encounter Care Teams Spread Cutter Relationship Specialty Start Date End Date Jevon Vazquez MD [address] [place] [address] #1 #1 Julien JOSEP [id number] PCP - General 03/23/22 documented as of this encounter
--- OUTSIDE RECORDS SUMMARY | 2024-10-31 08:58 | XMS_ITS | Encounter Summary ---
Author Organization Healthcare Address [address] [place] [address] Care Team Providers Care Sample Supervisor Name Role Phone Jevon Vazquez MD Primary Care Provider [phone] Encounter Details Date Type Department Care Team (Late Contact Info) Description 09/30/2024 Telephone [facility] Hematology/BMT and Cellular Therapy Program [address] [place] [address] Zoraida Good, RN [facility]IN[facility] Social History [...] Hematology/BMT and Cellular Therapy Program [address] [place] [address] 11/13/2024 1:30 PM EDT Office Visit [facility] Hematology/BMT and Cellular Therapy Program [address] [address] Zonia Hoffman, INTERNET ASSESSOR 800 [facility] [address] [place] [address] 11/13/2024 3:00 PM EDT Appointment [facility] Infusion 800 [place] [address] 11/14/2024 1:00 PM EDT Appointment [facility] [address] [place] [address] 11/15/2024 1:00 PM EDT Appointment [facility] [address] [place] [address] 11/16/2024 1:00 PM EDT Appointment [facility] [address] [place] [address] 11/17/2024 3:00 PM EDT Appointment [facility] 2 [address] [place] [address] 11/18/2024 3:00 PM EDT Appointment [facility] 1 7[address] [place] [address] 11/19/2024 2:00 PM EDT Appointment [facility] 2 [address] [place] [address] documented as of this encounter Visit Diagnoses Not on filedocumented in this encounter Additional Health Concerns Assessment Noted Time A fall risk assessment has been complete d for the patient 09/30/2024 9:33 AM EDT A Body Mass Index follow-up plan has been documented for the patient 05/28/2024 1:52 PM EST documented as of this encounter Care Teams Sample Supervisor Relationship Specialty Start Date End Date Jevon Vazquez MD [address] [place] [address] #1 #1 [place] [address] PCP - General 03/23/22 documented as of this encounter
--- OUTSIDE RECORDS SUMMARY | 2024-10-31 08:58 | XMS_ITS | Encounter Summary ---
Author Organization [facility] Address [address] [place] [address] Care Team Providers Care Terrazzo Layer Name Role Phone Jevon Vazquez MD Primary Care Provider [phone] Reason for Visit * Reason Comments Med Refill Encounter Details Date Type Department Care Team ([facility] Contact Info) Description 01/30/2024 Refill [facility] Hematology/BMT and Cellular Therapy Program [address] [phone] [place] M[place]in[place] MD 800 [facility] [address] [place] [phone] Social History Tobacco Use Types Packs/Day Years [...] Care Team ([facility] Contact Info) Description 11/13/2024 1:00 PM EDT Clinical Support [facility] Hematology/BMT and Cellular Therapy Program [address] [place] [address] 11/13/2024 1:30 PM EDT Office Visit [facility] Hematology/BMT and Cellular Therapy Program [address] [phone] Zonia Hoffman, REGISTERED MEDICAL ASSISTANT 800 [facility] [address] [place] [address] 11/13/2024 3:00 PM EDT Appointment [facility] Infusion 800 [place] [address] 11/14/2024 1:00 PM EDT Appointment [facility] [address] [place] [address] 11/15/2024 1:00 PM EDT Appointment [facility] [address] [place] [address] 11/16/2024 1:00 PM EDT Appointment [facility] [address] [place] [address] 11/17/2024 3:00 PM EDT Appointment [facility] 2 7[address] [place] [address] 11/18/2024 3:00 PM EDT Appointment [facility] 1 [address] [place] [address] 11/19/2024 2:00 PM EDT Appointment [facility] 2 [address] [place] [address] documented as of this encounter Visit Diagnoses Not on filedocumented in this encounter Additional Health Concerns Assessment Noted Time A fall risk assessment has been complete d for the patient 01/11/2024 9:16 AM EDT A Body Mass Index follow-up plan has been documented for the patient 01/21/2024 6:16 AM EDT documented as of this encounter Care Teams Terrazzo Layer Relationship Specialty Start Date End Date Jevon Vazquez MD [address] [place] [address] #1 #1 [place] [id number] PCP - General 03/23/22 documented as of this encounter
--- OUTSIDE RECORDS SUMMARY | 2024-10-31 08:58 | XMS_ITS | Encounter Summary ---
Author Organization Healthcare Address [address] [place] [address] Care Team Providers Care Motorcycle Service Technician Name Role Phone Jevon Vazquez MD Primary Care Provider [phone] Encounter Details Date Type Department Care Team ([facility] st Contact Info) Description 10/13/2024 Telephone [facility] Hematology/BMT and Cellular Therapy Program [address] [phone] Zonia Hoffman, GAME DESIGNER/CREATIVE DIRECTOR 800 [facility] [address] [place] [address] Social History Tobacco Use Types Packs/Day Years [...] needs to be delayed again Callback number: [phone] documented in this encounter Plan of Treatment Upcoming Encounters Date Type Department Care Team ([facility] st Contact Info) Description 11/13/2024 1:00 PM EDT Clinical Support [facility] Hematology/BMT and Cellular Therapy Program [address] [address] 11/13/2024 1:30 PM EDT Office Visit [facility] Hematology/BMT and Cellular Therapy Program [address] [address] Zonia Hoffman, GAME DESIGNER/CREATIVE DIRECTOR 800 [facility] [address] [place] [address] 11/13/2024 3:00 PM EDT Appointment [facility]fusion 800 [place] [address] 11/14/2024 1:00 PM EDT Appointment [facility] [address] [place] [address] 11/15/2024 1:00 PM EDT Appointment [facility]fusion [address] [place] [address] 11/16/2024 1:00 PM EDT Appointment [facility] [address] [place] [address] 11/17/2024 3:00 PM EDT Appointment [facility] 2 7[address] [place] [address] 11/18/2024 3:00 PM EDT Appointment [facility] 1 [address] [place] [address] 11/19/2024 2:00 PM EDT Appointment [facility] 2 [address] [place] [address] documented as of this encounter Visit Diagnoses Not on filedocumented in this encounter Additional Health Concerns Assessment Noted Time A fall risk assessment has been complete d for the patient 09/30/2024 9:33 AM EDT A Body Mass Index follow-up plan has been documented for the patient 05/28/2024 1:52 PM EST documented as of this encounter Care Teams Motorcycle Service Technician Relationship Specialty Start Date End Date Jevon Vazquez MD [address] [place] [address] #1 #1 [place] [address] PCP - General 03/23/22 documented as of this encounter
--- OUTSIDE RECORDS SUMMARY | 2024-10-31 08:58 | XMS_ITS | Encounter Summary ---
Author Organization Healthcare Address [address] [place] [address] Care Team Providers Care Water Use Inspector Name Role Phone Jevon Vazquez MD [...] Hematology/BMT and Cellular Therapy Program [address] [address] 11/13/2024 1:30 PM EDT Office Visit [facility] Hematology/BMT and Cellular Therapy Program [address] [address] Zonia Hoffman, RODDY 800 [facility] [address] [place] [address] 11/13/2024 3:00 PM EDT Appointment [facility] Infusion 800 [place] [address] 11/14/2024 1:00 PM EDT Appointment [facility] [address] [place] [address] 11/15/2024 1:00 PM EDT Appointment [facility] 800 [place] [address] 11/16/2024 1:00 PM EDT Appointment [facility] [address] [place] [address] 11/17/2024 3:00 PM EDT Appointment [facility] 2 [address] [place] [address] 11/18/2024 3:00 PM EDT Appointment [facility] 1 [address] [place] [address] 11/19/2024 2:00 PM EDT Appointment [facility] 2 [address] [place] [address] documented as of this encounter Visit Diagnoses Not on filedocumented in this encounter Additional Health Concerns Assessment Noted Time A fall risk assessment has been complete d for the patient 07/30/2024 8:29 AM EDT A Body Mass Index follow-up plan has been documented for the patient 05/28/2024 1:52 PM EST documented as of this encounter Care Teams Water Use Inspector Relationship Specialty Start Date End Date Jevon Vazquez MD [address] [place] [address] #1 #1 [place] [address] PCP - General 03/23/22 documented as of this encounter
--- OUTSIDE RECORDS SUMMARY | 2024-10-31 08:58 | XMS_ITS | Encounter Summary ---
Author Organization Healthcare Address [address] [place] [address] Care Team Providers Care Newscast Director Name Role Phone Jevon Vazquez MD Primary Care Provider [phone] Encounter Details Date Type Department Care Team [...] Hematology/BMT and Cellular Therapy Program [address] [address] 11/13/2024 1:30 PM EDT Office Visit [facility] Hematology/BMT and Cellular Therapy Program [address] [address] Zonia Hoffman, RODDY 800 [facility] [address] [place] [address] 11/13/2024 3:00 PM EDT Appointment [facility] Infusion 800 [place] [address] 11/14/2024 1:00 PM EDT Appointment [facility] [address] [place] [address] 11/15/2024 1:00 PM EDT Appointment [facility]fusion 800 [place] [address] 11/16/2024 1:00 PM EDT Appointment [facility] [address] [place] [address] 11/17/2024 3:00 PM EDT Appointment [facility] 2 [address] [place] [address] 11/18/2024 3:00 PM EDT Appointment [facility] 1 [address] [place] [address] 11/19/2024 2:00 PM EDT Appointment [facility] 2 [address] [place] [address] documented as of this encounter Visit Diagnoses Not on filedocumented in this encounter Additional Health Concerns Assessment Noted Time A fall risk assessment has been complete d for the patient 07/30/2024 8:29 AM EDT A Body Mass Index follow-up plan has been documented for the patient 05/28/2024 1:52 PM EST documented as of this encounter Care Teams Newscast Director Relationship Specialty Start Date End Date Jevon Vazquez MD [address] [place] [address] #1 #1 [place] [address] PCP - General 03/23/22 documented as of this encounter
--- OUTSIDE RECORDS SUMMARY | 2024-10-31 08:58 | XMS_ITS | Encounter Summary ---
Author Organization [facility] Address [address] [place] [address] Care Team Providers Care Shirt Marker Name Role Phone Jevon Vazquez MD Primary Care Provider [phone] Encounter Details Date Type Department Care Team ([facility] Contact Info) Description 10/29/2024 Refill [facility] Hematology/BMT and Cellular Therapy Program [address] [address] Zonia Hoffman, LINE LEADER 800 [facility] [address] [place] [address] Acute myeloid leukemia not having achieved remission [...] Upcoming Encounters Date Type Department Care Team ([facility] Contact Info) Description 11/13/2024 1:00 PM EDT Clinical Support [facility] Hematology/BMT and Cellular Therapy Program [address] [address] 11/13/2024 1:30 PM EDT Office Visit [facility] Hematology/BMT and Cellular Therapy Program [address] [place] [address] Zonia Hoffman, LINE LEADER 800 [facility] [address] [place] [address] 11/13/2024 3:00 PM EDT Appointment [facility] Infusion 800 [place] [address] 11/14/2024 1:00 PM EDT Appointment [facility] 800 [place] [address] 11/15/2024 1:00 PM EDT Appointment [facility]fusion [address] [place] [address] 11/16/2024 1:00 PM EDT Appointment [facility]fusion [address] [place] [address] 11/17/2024 3:00 PM EDT Appointment [facility] 2 [address] [place] [address] 11/18/2024 3:00 PM EDT Appointment [facility] 1 [address] [place] [address] 11/19/2024 2:00 PM EDT Appointment [facility] 2 [address] [place] [address] documented as of this encounter Visit Diagnoses [...] documented as of this encounter Care Teams Shirt Marker Relationship Specialty Start Date End Date Jevon Vazquez MD [address] [place] [address] #1 #1 [place] [address] PCP - General 03/23/22 documented as of this encounter
--- OUTSIDE RECORDS SUMMARY | 2024-10-31 08:58 | XMS_ITS | Encounter Summary ---
Author Organization Healthcare Address [address] [place] [address] Care Team Providers Care Hospice Manager Name Role Phone Jevon Vazquez MD Primary Care Provider [phone] Encounter Details Date Type Department Care Team [...] Hematology/BMT and Cellular Therapy Program [address] [address] 11/13/2024 1:30 PM EDT Office Visit [facility] Hematology/BMT and Cellular Therapy Program [address] [address] Zonia Hoffman, RODDY 800 [facility] [address] [place] [address] 11/13/2024 3:00 PM EDT Appointment [facility] Infusion 800 [place] [address] 11/14/2024 1:00 PM EDT Appointment [facility]fusion [address] [place] [address] 11/15/2024 1:00 PM EDT Appointment [facility] 800 [place] [address] 11/16/2024 1:00 PM EDT Appointment [facility] 800 [place] [address] 11/17/2024 3:00 PM EDT Appointment [facility] 2 [address] [place] [address] 11/18/2024 3:00 PM EDT Appointment [facility] 1 [address] [place] [address] 11/19/2024 2:00 PM EDT Appointment [facility] 2 [address] [place] [address] documented as of this encounter Visit Diagnoses Not on filedocumented in this encounter Additional Health Concerns Assessment Noted Time A fall risk assessment has been complete d for the patient 07/30/2024 8:29 AM EDT A Body Mass Index follow-up plan has been documented for the patient 05/28/2024 1:52 PM EST documented as of this encounter Care Teams Hospice Manager Relationship Specialty Start Date End Date Jevon Vazquez MD [address] [place] [address] #1 #1 [place] [address] PCP - General 03/23/22 documented as of this encounter
--- OUTSIDE RECORDS SUMMARY | 2024-10-31 08:58 | XMS_ITS | Encounter Summary ---
Author Organization Healthcare Address [address] [place] [address] Care Team Providers Care Director Of Labor And Delivery Name Role Phone Jevon Vazquez MD Primary Care Provider [phone] Encounter Details Date Type Department Care Team [...] Hematology/BMT and Cellular Therapy Program [address] [address] 11/13/2024 1:30 PM EDT Office Visit [facility] Hematology/BMT and Cellular Therapy Program [address] [address] Zonia Hoffman, RODDY 800 [facility] [address] [address] 11/13/2024 3:00 PM EDT Appointment [facility] Infusion 800 [place] [address] 11/14/2024 1:00 PM EDT Appointment [facility] Infusion [address] [place] [address] 11/15/2024 1:00 PM EDT Appointment [facility] Infusion 800 [place] [address] 11/16/2024 1:00 PM EDT Appointment [facility] Infusion [address] [place] [address] 11/17/2024 3:00 PM EDT Appointment [facility] 2 [address] [place] [address] 11/18/2024 3:00 PM EDT Appointment [facility] 1 [address] [place] [address] 11/19/2024 2:00 PM EDT Appointment [facility] 2 [address] [place] [address] documented as of this encounter Visit Diagnoses Not on filedocumented in this encounter Additional Health Concerns Assessment Noted Time A fall risk assessment has been complete d for the patient 07/30/2024 8:29 AM EDT A Body Mass Index follow-up plan has been documented for the patient 05/28/2024 1:52 PM EST documented as of this encounter Care Teams Director Of Labor And Delivery Relationship Specialty Start Date End Date Jevon Vazquez MD [address] [place] [address] #1 #1 [place] [address] PCP - General 03/23/22 documented as of this encounter
--- OUTSIDE RECORDS SUMMARY | 2024-10-31 08:58 | XMS_ITS | Encounter Summary ---
Author Organization Healthcare Address [address] [place] [address] Care Team Providers Care Label Operator Name Role Phone Jevon Vazquez MD Primary Care Provider [phone] Encounter Details Date Type Department Care Team [...] Hematology/BMT and Cellular Therapy Program [address] [address] 11/13/2024 1:30 PM EDT Office Visit [facility] Hematology/BMT and Cellular Therapy Program [address] [address] Zonia Hoffman, RODDY 800 [facility] [address] [place] [address] 11/13/2024 3:00 PM EDT Appointment [facility] Infusion 800 [place] [address] 11/14/2024 1:00 PM EDT Appointment [facility] Infusion [address] [place] [address] 11/15/2024 1:00 PM EDT Appointment [facility] Infusion 800 [place] [address] 11/16/2024 1:00 PM EDT Appointment [facility] Infusion [address] [place] [address] 11/17/2024 3:00 PM EDT Appointment [facility] 2 [address] [place] [address] 11/18/2024 3:00 PM EDT Appointment [facility] 1 [address] [place] [address] 11/19/2024 2:00 PM EDT Appointment [facility] 2 [address] [place] [address] documented as of this encounter Visit Diagnoses Not on filedocumented in this encounter Additional Health Concerns Assessment Noted Time A fall risk assessment has been complete d for the patient 09/19/2024 8:38 AM EDT A Body Mass Index follow-up plan has been documented for the patient 05/28/2024 1:52 PM EST documented as of this encounter Care Teams Label Operator Relationship Specialty Start Date End Date Jevon Vazquez MD [address] [place] [address] #1 #1 [place] [address] PCP - General 03/23/22 documented as of this encounter
--- OUTSIDE RECORDS SUMMARY | 2024-10-31 08:58 | XMS_ITS | Encounter Summary ---
Author Organization Healthcare Address [address] [place] [address] Care Team Providers Care Clinical Pharmacist Name Role Phone Jevon Vazquez MD Primary Care Provider [phone] Encounter Details Date Type Department Care Team ([facility] Contact Info) Description 09/19/2024 Orders Only [facility] Hematology/BMT and Cellular Therapy Program [address] [phone] 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, RN [facility] H[facility]AT[facility] CLINIC Social History [...] Upcoming Encounters Date Type Department Care Team ([facility] Contact Info) Description 11/13/2024 1:00 PM EDT Clinical Support [facility] Hematology/BMT and Cellular Therapy Program [address] [address] 11/13/2024 1:30 PM EDT Office Visit [facility] CC Hematology/BMT and Cellular Therapy Program [address] [phone] Zonia Hoffman, MARKETING DIRECTOR ASSISTED LIVING 800 [facility] [address] [place] [address] 11/13/2024 3:00 PM EDT Appointment [facility] H Infusion 800 [place] [address] 11/14/2024 1:00 PM EDT Appointment [facility] Infusion [address] [place] [address] 11/15/2024 1:00 PM EDT Appointment [facility] Infusion [address] [place] [address] 11/16/2024 1:00 PM EDT Appointment [facility] Infusion [address] [place] [address] 11/17/2024 3:00 PM EDT Appointment [facility] 2 [address] [place] [address] 11/18/2024 3:00 PM EDT Appointment [facility] 1 [address] [place] [address] 11/19/2024 2:00 PM EDT Appointment [facility] 2 [address] [place] [address] documented as of this encounter Visit Diagnoses Not on filedocumented in this encounter Additional Health Concerns Assessment Noted Time A fall risk assessment has been complete d for the patient 09/19/2024 8:38 AM EDT A Body Mass Index follow-up plan has been documented for the patient 05/28/2024 1:52 PM EST documented as of this encounter Care Teams Clinical Pharmacist Relationship Specialty Start Date End Date Jevon Vazquez MD [address] [place] [address] #1 #1 [place] [address] PCP - General 03/23/22 documented as of this encounter
--- OUTSIDE RECORDS SUMMARY | 2024-10-31 08:58 | XMS_ITS | Encounter Summary ---
Author Organization Healthcare Address [address] [place] [address] Care Team Providers Care Tire Care Manager Name Role Phone Jevon Vazquez MD Primary Care Provider [phone] Encounter Details Date Type Department Care Team ([facility] st Contact Info) Description 09/01/2024 Telephone [facility] Hematology/BMT and Cellular Therapy Program [address] [address] Zonia Hoffman, DIRECTOR BUSINESS INTEGRATION 800 [facility] [address] [place] [address] Social History Tobacco Use Types Packs/Day Years [...] told her to cancel. Please confirm Callback number:[phone] documented in this encounter Plan of Treatment Upcoming Encounters Date Type Department Care Team (Late st Contact Info) Description 11/13/2024 1:00 PM EDT Clinical Support PAV Hematology/BMT and Cellular Therapy Program [address] [address] 11/13/2024 1:30 PM EDT Office Visit PAV Hematology/BMT and Cellular Therapy Program [address] [address] Zonia Hoffman, DIRECTOR BUSINESS INTEGRATION 800 [facility] [address] [place] [address] 11/13/2024 3:00 PM EDT Appointment [facility] H Infusion 800 [place] [address] 11/14/2024 1:00 PM EDT Appointment [facility] Infusion 800 [place] [address] 11/15/2024 1:00 PM EDT Appointment [facility] Infusion [address] [place] [address] 11/16/2024 1:00 PM EDT Appointment [facility] Infusion [address] [place] [address] 11/17/2024 3:00 PM EDT Appointment [facility] 2 [address] [place] [address] 11/18/2024 3:00 PM EDT Appointment [facility] 1 [address] [place] [address] 11/19/2024 2:00 PM EDT Appointment [facility] 2 [address] [place] [address] documented as of this encounter Visit Diagnoses Not on filedocumented in this encounter Additional Health Concerns Assessment Noted Time A fall risk assessment has been complete d for the patient 07/30/2024 8:29 AM EDT A Body Mass Index follow-up plan has been documented for the patient 05/28/2024 1:52 PM EST documented as of this encounter Care Teams Tire Care Manager Relationship Specialty Start Date End Date Jevon Vazquez MD [address] [place] [address] #1 #1 [place] [address] PCP - General 03/23/22 documented as of this encounter
--- OUTSIDE RECORDS SUMMARY | 2024-10-31 08:58 | XMS_ITS ---
Author Organization [facility] Address [address] [place] [address] Care Team Providers Care Business Solution Analyst Name Role Phone Jevon Vazquez MD Primary Care Provider [phone] Active Problems Problem Noted Date Diagnosed Date [...]
--- OUTSIDE RECORDS SUMMARY | 2024-10-31 08:59 | XMS_ITS | Encounter Summary ---
Author Organization Healthcare Address [address] [place] [address] Care Team Providers Care Section Maintainer Name Role Phone Jevon Vazquez MD Primary Care Provider [phone] Encounter Details Date Type Department Care Team [...] Hematology/BMT and Cellular Therapy Program [address] [address] 11/13/2024 1:30 PM EDT Office Visit [facility] Hematology/BMT and Cellular Therapy Program [address] [address] Zonia Hoffman, RODDY 800 [facility] [address] [place] [address] 11/13/2024 3:00 PM EDT Appointment [facility] Infusion 800 [place] [address] 11/14/2024 1:00 PM EDT Appointment [facility]fusion [address] [place] [address] 11/15/2024 1:00 PM EDT Appointment [facility] 800 [place] [address] 11/16/2024 1:00 PM EDT Appointment [facility] 800 [place] [address] 11/17/2024 3:00 PM EDT Appointment [facility] 2 [address] [place] [address] 11/18/2024 3:00 PM EDT Appointment [facility] 1 [address] [place] [address] 11/19/2024 2:00 PM EDT Appointment [facility] 2 [address] [place] [address] documented as of this encounter Visit Diagnoses Not on filedocumented in this encounter Additional Health Concerns Assessment Noted Time A fall risk assessment has been complete d for the patient 09/19/2024 8:38 AM EDT A Body Mass Index follow-up plan has been documented for the patient 05/28/2024 1:52 PM EST documented as of this encounter Care Teams Section Maintainer Relationship Specialty Start Date End Date Jevon Vazquez MD [address] [place] [address] #1 #1 [place]P [address] PCP - General 03/23/22 documented as of this encounter
--- OUTSIDE RECORDS SUMMARY | 2024-10-31 08:59 | XMS_ITS | Encounter Summary ---
Author Organization Healthcare Address [address] [place] [address] Care Team Providers Care Wound Specialist Name Role Phone Jevon Vazquez MD Primary Care Provider Encounter Details Date Type Department Care Team ([facility] st Contact Info) Description 10/28/2024 Telephone [facility] Hematology/BMT and Cellular Therapy Program [address] [address] Zonia Hoffman, AUTO POLISHER 800 [facility] [address] [place] [phone] Social History Tobacco Use Types Packs/Day Years [...] go over her labs results Callback number: [phone] documented in this encounter Plan of Treatment Upcoming Encounters Date Type Department Care Team (Late st Contact Info) Description 11/13/2024 1:00 PM EDT Clinical Support [facility] Hematology/BMT and Cellular Therapy Program [address] [address] 11/13/2024 1:30 PM EDT Office Visit [facility] Hematology/BMT and Cellular Therapy Program [address] [address] Zonia Hoffman, AUTO POLISHER 800 [facility] [address] [place] [phone] 11/13/2024 3:00 PM EDT Appointment [facility] [address] [place] [address] 11/14/2024 1:00 PM EDT Appointment [facility] [address] [place] [address] 11/15/2024 1:00 PM EDT Appointment [facility] [address] [place] [address] 11/16/2024 1:00 PM EDT Appointment [facility] [address] [place] [address] 11/17/2024 3:00 PM EDT Appointment [facility] 2 [address] [place] [address] 11/18/2024 3:00 PM EDT Appointment [facility] 1 [address] [place] [address] 11/19/2024 2:00 PM EDT Appointment [facility] 2 [address] [place] [address] documented as of this encounter Visit Diagnoses Not on filedocumented in this encounter Additional Health Concerns Assessment Noted Time A fall risk assessment has been complete d for the patient 09/30/2024 9:33 AM EDT A Body Mass Index follow-up plan has been documented for the patient 05/28/2024 1:52 PM EST documented as of this encounter Care Teams Wound Specialist Relationship Specialty Start Date End Date Jevon Vazquez MD [address] [place] [address] #1 #1 [place]P [place] [id number] PCP - General 03/23/22 documented as of this encounter
--- OUTSIDE RECORDS SUMMARY | 2024-10-31 08:59 | XMS_ITS | Encounter Summary ---
Author Organization Healthcare Address [address] [place] [address] Care Team Providers Care Livestock Brands Inspector Name Role Phone Jevon Vazquez MD Primary Care Provider [phone] Encounter Details Date Type Department Care Team ([facility] st Contact Info) Description 10/27/2024 Telephone [facility] Hematology/BMT and Cellular Therapy Program [address] [phone] Zonia Hoffman, CLAIM REP 800 [facility] [address] [place] [phone] Social History Tobacco Use Types Packs/Day Years [...] and her new appts will be on [place]. She verbalizes understanding. * Telephone Encounter - [...] Hematology/BMT and Cellular Therapy Program [address] [address] 11/13/2024 1:30 PM EDT Office Visit [facility] Hematology/BMT and Cellular Therapy Program [address] [address] Zonia Hoffman, CLAIM REP 800 [facility] [address] [place] [phone] 11/13/2024 3:00 PM EDT Appointment [facility] [address] [place] [address] 11/14/2024 1:00 PM EDT Appointment [facility] [address] [place] [address] 11/15/2024 1:00 PM EDT Appointment [facility] [address] [place] [address] 11/16/2024 1:00 PM EDT Appointment [facility] [address] [place] [address] 11/17/2024 3:00 PM EDT Appointment [facility] 2 [address] [place] [address] 11/18/2024 3:00 PM EDT Appointment [facility] 1 [address] [place] [address] 11/19/2024 2:00 PM EDT Appointment [facility] 2 [address] [place] [address] documented as of this encounter Visit Diagnoses Not on filedocumented in this encounter Additional Health Concerns Assessment Noted Time A fall risk assessment has been complete d for the patient 09/30/2024 9:33 AM EDT A Body Mass Index follow-up plan has been documented for the patient 05/28/2024 1:52 PM EST documented as of this encounter Care Teams Livestock Brands Inspector Relationship Specialty Start Date End Date Jevon Vazquez MD [address] [place] [address] #1 #1 [place]P [place] [id number] PCP - General 03/23/22 documented as of this encounter
--- OUTSIDE RECORDS SUMMARY | 2024-10-31 08:59 | XMS_ITS | Encounter Summary ---
Author Organization Healthcare Address [address] [place] [address] Care Team Providers Care Mobile Homes Repairer Name Role Phone Jevon Vazquez MD Primary Care Provider [phone] Encounter Details Date Type Department Care Team [...] Hematology/BMT and Cellular Therapy Program [address] [address] 11/13/2024 1:30 PM EDT Office Visit [facility] Hematology/BMT and Cellular Therapy Program [address] [address] Zonia Hoffman, RODDY 800 [facility] [address] [place] [address] 11/13/2024 3:00 PM EDT Appointment [facility] [address] [place] [address] 11/14/2024 1:00 PM EDT Appointment [facility] [address] [place] [address] 11/15/2024 1:00 PM EDT Appointment [facility] [address] [place] [address] 11/16/2024 1:00 PM EDT Appointment [facility] [address] [place] [address] 11/17/2024 3:00 PM EDT Appointment [facility] 2 [address] [place] [address] 11/18/2024 3:00 PM EDT Appointment [facility] 1 [address] [place] [address] 11/19/2024 2:00 PM EDT Appointment [facility] 2 [address] [place] [address] documented as of this encounter Visit Diagnoses [...] Date End Date Jevon Vazquez MD [address] [place] [address] #1 #1 Julien JOSEP [id number] PCP - General 03/23/22 documented as of this encounter
--- OUTSIDE RECORDS SUMMARY | 2024-10-31 08:59 | XMS_ITS | Encounter Summary ---
Author Organization [facility] Address [address] [place] [address] Care Team Providers Care Fruit Preserver Name Role Phone Jevon Vazquez MD Primary Care Provider [phone] Reason for Visit * Reason Comments Med Refill Encounter Details Date Type Department Care Team ([facility] Contact Info) Description 10/15/2024 Refill [facility] Hematology/BMT and Cellular Therapy Program [address] [phone] New Mckinney MD 800 [facility] [address] [place] [phone] Social History Tobacco Use Types Packs/Day Years [...] [facility] Contact Info) Description 11/13/2024 1:00 PM EDT Clinical Support [facility] Hematology/BMT and Cellular Therapy Program [address] [phone] 11/13/2024 1:30 PM EDT Office Visit [facility] Hematology/BMT and Cellular Therapy Program [address] [address] Zonia Hoffman, CARPET JOURNEYMAN 800 [facility] [address] [place] [address] 11/13/2024 3:00 PM EDT Appointment [facility] [address] [place] [address] 11/14/2024 1:00 PM EDT Appointment [facility] [address] [place] [address] 11/15/2024 1:00 PM EDT Appointment [facility] [address] [place] [address] 11/16/2024 1:00 PM EDT Appointment [facility] [address] [place] [address] 11/17/2024 3:00 PM EDT Appointment [facility] 2 [address] [place] [address] 11/18/2024 3:00 PM EDT Appointment [facility] 1 [address] [place] [address] 11/19/2024 2:00 PM EDT Appointment [facility] 2 [address] [place] [address] documented as of this encounter Visit Diagnoses Not on filedocumented in this encounter Additional Health Concerns Assessment Noted Time A fall risk assessment has been complete d for the patient 09/30/2024 9:33 AM EDT A Body Mass Index follow-up plan has been documented for the patient 05/28/2024 1:52 PM EST documented as of this encounter Care Teams Fruit Preserver Relationship Specialty Start Date End Date Jevon Vazquez MD [address] [place] [address] #1 #1 JulienJOSEP [id number] PCP - General 03/23/22 documented as of this encounter
--- OUTSIDE RECORDS SUMMARY | 2024-10-31 08:59 | XMS_ITS | Clinical Summary ---
Author Organization [facility] Address [address] [place] [address] Care Team Providers Care Bobbin Cleaner Name Role Phone David Vazquez Primary Care Provider [phone] Allergies No known active allergies Medications atorvastatin [...] series) 2025 Medical Devices Implanted Type Area Director Of Institutional Sales Device Identifier Shelf Expiration Date Model / Serial / Lot Mis Ply Scr 6.5x50mm - [id number] Implanted:Qty : 1 on 01/30/2023 by Ivan Bartholomew MD at [facility] Screw N/A: Spine Lumbar [employer] [id number] / / Mis Ply Scr 6.5x45mm - [id number] Implanted:Qty : 3 on 01/30/2023 by Ivan Bartholomew MD at [facility] Screw N/A: Spine Lumbar [employer] [id number] / / Reline Mas Reduction Screw 7.5x45 - [id number] Implanted:Qty : 2 on 01/30/2023 by Ivan Bartholomew MD at [facility] Screw N/A: Spine Lumbar [employer] [id number] / / Grft Dbm Vesuvius Putty 5cc - [id number] Implanted:Qty : 1 on 01/30/2023 by Ivan Bartholomew MD at [facility] [employer] [id number] 04/20/2025 [id number] P / [id number] / Putty I-Factor 5.0cc - [id number] Implanted:Qty : 1 on 01/30/2023 by Ivan Bartholomew MD at [facility] N/A: Spine Lumbar [employer] 03/15/2025 [id number] / / [id number] Modulus Xlw [id number] 10 Degree - [id number] Implanted:Qty : 1 on 01/30/2023 by Ivan Bartholomew MD at [facility] N/A: Spine Lumbar [employer] [id number] / / [id number] Modulus Xlw [id number] - [id number] Implanted:Qty : 1 on 01/30/2023 by Ivan Bartholomew MD at [facility] N/A: Spine Lumbar [employer] 09/28/2027 [id number] / / [id number] Reln Lock Scr 5.5mm Opn Tulip - [id number] Implanted:Qty : 6 on 01/30/2023 by Ivan Bartholomew MD at [facility] N/A: Spine Lumbar [employer] [id number] / / Reln Mas Ti Petar 5.5x70mm - [id number] Implanted:Qty : 2 on 01/30/2023 by Ivan Bartholomew MD at [facility] N/A: Spine Lumbar [employer] [id number] / / Procedures Procedure Name Priority Date/Time [...] Hgb A1C 6.0(H) 4.0 - 5.6 % [facility] Comment: Reference Ranges for Hgb [...] Glycohemoglobin Standardization program (NGSP) and [facility] Estimated Average Glucose 126(H) 68 - 114 mg/dL [facility] Whole Blood (Blood) 01/24/2023 2:32 PM EDT 01/24/2023 6:00 PM EDT us Ivan Bartholomew MD CHEMISTRY ORDERABLES Fin al Result [facility] [address] * (ABNORMAL) BASIC METABOLIC PANEL (BMP=EP1) (01/24/2023 2:32 PM EDT) Sodium 141 135 - 146 mmol/L [facility] Potassium 4.8 3.5 - 5.1 mmol/L [facility] Chloride 107 98 - 110 mmol/L [facility] CO2 24 22 - 29 mmol/L [facility] Anion Gap 10 5 - 13 mmol/L [facility] Comment:Anion gap calculatio n does not include potassium (K+) value. BUN 17 7 - 25 mg/dL [facility] Creatinine 1.20 0.50 - 1.20 mg/dL [facility] Glucose 125(H) 71 - 99 mg/dL [facility] Comment:Reference range (71- 99 mg/dL) refers only to fasting samples, and does not apply to non-fasting samples. eGFR CKD-EPI 2020 48 See Note [facility] Comment: eGFR calculated with 2020 CKD-EPI equation using creatinine, patient's age and gender. Other factors, especially muscle mass, may affect accuracy and need to be considered. Patient values should be interpreted as a trend. The reference interval is >60 mL/min/1.73m2. Calcium 10.3 8.5 - 10.5 mg/dL [facility] BUN/Creatinine Ratio 14 [facility] Serum 01/24/2023 2:32 PM EDT 01/24/2023 5:54 PM EDT us Lexi SUAREZ CHEMISTRY ORDERABLES Final Resu lt [facility] [address] from Last 3 Months or Most Recently Relevant to Health Maintenance Insurance MEDICARE PART A [facility] [address] [address] [place] [address] ANTH Advance Directives For more information, please contact: [phone] * Full Code (Latest Code Status on File) Date Activated Date Inactivated Comments 01/30/2023 9:13 AM No automated chest compression devices for [facility] Patients Care Teams Bobbin Cleaner Relationship Specialty Start Date End Date David Vazquez [address] [place] [id number] PCP - General 01/24/23
--- OUTSIDE RECORDS SUMMARY | 2024-10-31 08:59 | XMS_ITS | Encounter Summary ---
Author Organization [facility] Address [address] [place] [address] Care Team Providers Care System Admin Name Role Phone Jevon Vazquez MD Primary Care Provider [phone] Encounter Details Date Type Department Care Team ([facility] Contact Info) Description 10/08/2024 Orders Only [facility] Hematology/BMT and Cellular Therapy Program [address] [phone] 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, RN [facility] Acute myeloid [...] Hematology/BMT and Cellular Therapy Program [address] [address] 11/13/2024 1:30 PM EDT Office Visit [facility] Hematology/BMT and Cellular Therapy Program [address] [phone] Zonia Hoffman, PLANT MECHANIC 800 [facility] [address] [place] [address] 11/13/2024 3:00 PM EDT Appointment [facility] [address] [place] [address] 11/14/2024 1:00 PM EDT Appointment [facility] [address] [place] [address] 11/15/2024 1:00 PM EDT Appointment [facility] [address] [place] [address] 11/16/2024 1:00 PM EDT Appointment [facility] [address] [place] [address] 11/17/2024 3:00 PM EDT Appointment [facility] 2 [address] [place] [address] 11/18/2024 3:00 PM EDT Appointment [facility] 1 [address] [place] [address] 11/19/2024 2:00 PM EDT Appointment [facility] 2 [address] [place] [address] Scheduled Orders Name Type Priority Associated Diagnoses [...] documented as of this encounter Care Teams System Admin Relationship Specialty Start Date End Date Jevon Vazquez MD [address] [place] [address] #1 #1 JOSEP [place] [address] PCP - General 03/23/22 documented as of this encounter
--- OUTSIDE RECORDS SUMMARY | 2024-10-31 08:59 | XMS_ITS | Encounter Summary ---
Author Organization Healthcare Address [address] [place] [address] Care Team Providers Care Range Scientist Name Role Phone Jevon Vazquez MD [...] Hematology/BMT and Cellular Therapy Program [address] [address] 11/13/2024 1:30 PM EDT Office Visit [facility] Hematology/BMT and Cellular Therapy Program [address] [address] Zonia Hoffman, RODDY 800 [facility] [address] [place] [address] 11/13/2024 3:00 PM EDT Appointment [facility] [address] [place] [address] 11/14/2024 1:00 PM EDT Appointment [facility] [address] [place] [address] 11/15/2024 1:00 PM EDT Appointment [facility] [address] [place] [address] 11/16/2024 1:00 PM EDT Appointment [facility] [address] [place] [address] 11/17/2024 3:00 PM EDT Appointment [facility] 2 [address] [place] [address] 11/18/2024 3:00 PM EDT Appointment [facility] 1 [address] [place] [address] 11/19/2024 2:00 PM EDT Appointment [facility] 2 [address] [place] [address] documented as of this encounter Visit Diagnoses Not on filedocumented in this encounter Additional Health Concerns Assessment Noted Time A fall risk assessment has been complete d for the patient 09/30/2024 9:33 AM EDT A Body Mass Index follow-up plan has been documented for the patient 05/28/2024 1:52 PM EST documented as of this encounter Care Teams Range Scientist Relationship Specialty Start Date End Date Jevon Vazquez MD [address] [place] [address] #1 #1 Julien JOSEP [id number] PCP - General 03/23/22 documented as of this encounter
--- OUTSIDE RECORDS SUMMARY | 2024-10-31 08:59 | XMS_ITS | Clinical Summary ---
Author Organization [facility] Address [address] [place] [address] Care Team Providers Care Public Relations Name Role Phone Jevon Vazquez MD Primary Care Provider [phone] Allergies No known active allergies Medications amLODIPine (Norvasc) 5 MG tablet Take 1 tablet (5 mg) by mouth daily. 02/19/20 22 Active pioglitazone (Actos) 30 MG tablet Take 1 tablet (30 mg) by mouth daily. Active fenofibrate (Tricor) 145 MG tablet Take 1 tablet (145 mg) by mouth daily. 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 60 tablet 3 10/30/19 25 Active fluconazole (Diflucan) 200 MG tabletIndicat ions:Immunosu ppressed status (CMS/HCC) Take 2 tablets by mouth daily. 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 60 tablet 2 07/31/19 25 025 Discontinued(Re order) fluconazole (Diflucan) 200 MG tabletIndicat ions:Immunosu ppressed status (CMS/HCC) Take 2 tablets by mouth daily. 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); Immunosuppressed status (CMS/HCC) 10/28/2024 Telephone [facility] H[facility]ology/BMT and Cellular Therapy Program [address] [place] [address] Zonia Hoffman, FIELD CROP HARVEST CONTRACTOR 10/27/2024 Telephone [facility]ematology/BMT and Cellular Therapy Program [address] [place] [phone] Zonia Hoffman, FIELD CROP HARVEST CONTRACTOR 10/27/2024 Travel 10/26/2024 Travel 10/24/2024 Travel 10/23/2024 Travel 10/22/2024 Travel 10/15/2024 Refill [facility]ology/BMT and Cellular Therapy Program [address] [place] [phone] New Mckinney MD 10/14/2024 Refill [facility]ology/BMT and Cellular Therapy Program [address] [place] [address] Nwe Mckinney MD 10/13/2024 Telephone [facility]ology[facility]BMT and Cellular Therapy Program [address] [place] [address] Zonia Hoffman, FIELD CROP HARVEST CONTRACTOR 10/13/2024 Travel 10/12/2024 Travel 10/11/2024 Travel 10/09/2024 Travel 10/08/2024 Travel 10/08/2024 Orders Only [facility]ology/BMT and Cellular Therapy Program [address] [place] [address] 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, hotbed lever operator 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) 10/07/2024 Travel 09/30/2024 9:30 AM EDT Office Visit [facility]ology[facility]BMT [facility] Cellular Therapy Program [address] [place] [address] Zonia Hoffman, FIELD CROP HARVEST CONTRACTOR 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) 09/30/2024 9:00 AM EDT Clinical Support [facility]ology[facility]BMT [facility] Cellular Therapy Program [address] [place] [address] Kemp, Jyoti S 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) 09/30/2024 Telephone [facility] Hematology/BMT and Cellular Therapy Program 750 [facility], [address] [place] [address] [place] [phone] Zoraida Good, RN 09/30/2024 Travel 09/29/2024 Travel 09/28/2024 Travel 09/27/2024 Travel 09/26/2024 Travel 09/25/2024 Travel 09/24/2024 Travel 09/23/2024 Travel 09/19/2024 12:00 PM EDT Procedure Visit [facility] Hematology/BMT and Cellular Therapy Program 750 [facility], [address] [place] [phone] Lexi Ferraro, RODDY 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) 09/19/2024 9:30 AM EDT Clinical Support [facility] 800 [facility], [address]nd [place] [phone] 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) 09/19/2024 7:30 AM EDT Clinical Support [facility] Hematology/BMT and Cellular Therapy Program [address] [phone] 09/19/2024 Telephone [facility] Hematology/BMT and Cellular Therapy Program [address] [phone] Romana Richmond, RN 09/19/2024 Orders Only [facility] Hematology/BMT and Cellular Therapy Program [address] [phone] 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, RN 09/19/2024 Travel 09/15/2024 Telephone [facility]ology/BMT and Cellular Therapy Program [address] [phone] Zonia Hoffman APRN 09/15/2024 Travel 09/14/2024 Travel 09/13/2024 Travel 09/12/2024 Travel 09/12/2024 Refill [facility]ology/BMT [facility] Cellular Therapy Program [address] [place] [address] New Mckinney MD 09/11/2024 Travel 09/10/2024 Travel 09/01/2024 Telephone [facility]ology[facility]BMT and Cellular Therapy Program [address] [place] [phone] Zonia Hoffman, FIELD CROP HARVEST CONTRACTOR 08/31/2024 Travel 08/30/2024 Travel 08/18/2024 Telephone [facility]ology[facility]BMT and Cellular Therapy Program [address] [place] [address] [place] [address] Romana Gorman, FIELD CROP HARVEST CONTRACTOR 08/17/2024 Travel 08/16/2024 Travel 08/15/2024 Travel 08/13/2024 Travel from Last 3 Months Immunizations Immunization [...] Encounters Date Type Department Care Team ([facility] st Contact Info) Description 11/13/2024 1:00 PM EDT Clinical Support [facility] Hematology/BMT and Cellular Therapy Program [address] [phone] 11/13/2024 1:30 PM EDT Office Visit [facility] Hematology/BMT and Cellular Therapy Program [address] [phone] Zonia Hoffman, FIELD CROP HARVEST CONTRACTOR 800 [facility] [address] [place] [phone] 11/13/2024 3:00 PM EDT Appointment [facility] [address] [place] [address] 11/14/2024 1:00 PM EDT Appointment [facility] [address] [place] [address] 11/15/2024 1:00 PM EDT Appointment [facility] [address] [place] [address] 11/16/2024 1:00 PM EDT Appointment [facility] [address] [place] [address] 11/17/2024 3:00 PM EDT Appointment [facility] 2 [address] [place] [address] 11/18/2024 3:00 PM EDT Appointment [facility] 1 [address] [place] [address] 11/19/2024 2:00 PM EDT Appointment [facility] 2 [address] [place] [address] Health Maintenance Due Date Last Done Comments [...] UKY-Zoster Vaccines (1 of 2) 05/16/2023 03/21/2023 [id number] Vaccine ( season) 2023 02/18/2021, 07/10/2020, 06/12/2020 [...] this topic Medical Devices Implanted Type Area Slot Machine Key Person Device Identifier Shelf Expiration Date Model / Serial / Lot Port Clearvue Power 8fr - [id number] Implanted:Qty: 1 on 01/21/2024 by Ness Sargent MD at [facility] Peripherial [id number] / / Procedures Procedure Name Priority Date/Time [...] of2 resultswithin the time period is included. WBC [...] ult [facility] [address] [place] [address] * (ABNORMAL) Comprehensive Metabolic Panel, Plasma (09/30/2024 9:11 AM EDT) [facility] Glucose, Plasma 135(H) 74 - 99 mg/dL [...] Res ult [facility] [address] [place] [address] * BIOPSY BONE MARROW (09/19/2024 12:00 PM [...] to surronding structures. Alternatives discussed: Delayed treatment [place] protocol: Procedure explained and questions answered to [...] at the site and an 11 gauge [employer] needle was inserted into the right posterior [...] Platelet count (09/19/2024 10:04 AM EDT) Pathologist [facility] Platelet Count 61(L) 155 - 369 10*3/uL LAB HEMATOLOGY METHOD 09/19/2024 10:19 AM EDT [facility] Blood Blood sample taken from central line / Unknown (Port) Long-term Catheter / Unknown 09/19/2024 10:04 AM EDT 09/19/2024 10:18 AM EDT New Mckinney MD LAB BLOOD ORDERABLES Final Re sult [facility] [address] [place] [address] * Transfuse platelets, Irradiated (09/19/2024 10:02 AM EDT) Lexi Ferraro APRN BLOOD TRANSFUSION ORDERABL ES Final Result * Prepare Leukocyte Reduced Platelets (09/19/2024 9:08 AM EDT) Pathologist [facility] Product Code [id number] BLOO D BANK Dispense Status Transfused BLOOD BANK Blood Expiration Date [id number] BLOOD BANK Unit Number [id number] CH B LOOD BANK Product Blood Type 6200 BLOOD BANK Blood Type A+ BLOOD BANK Provider Not In System BLOOD BANK PRODUCT ORD ERABLES Final Result Performing Organization Address City/[facility] Co de Phone Number BLOOD BANK [address] [place] [address], * Myeloid Focused Panel, 50 gene (09/19/2024 7:29 AM EDT) Interpretation The following two (2) genes, TP53 and DNMT3A, with persistent variants have been detected in this bone marrow specimen. The variant, p.[id number], in TP53 gene and the variant, p.[id number], in the RUNX 1 gene are not detectable at current cutoff and coverage established in this lab. Gene: TP53 Mutation: c.814G>A; p.Tcn005Xug Allele Frequency (%): 37% (45% Dec 2023) ID: [id number] Gene: DNMT3A Mutation: c.1522delC; p.[id number] 3 Allele Frequency (%): 36% (48% Dec 2023) Additional Details on Mutation Identified: Gene Transcript Genome Chrom Coordinate RefVar DNMT3A [id number] Hg19 2 [id number] delC TP53 NM_000546.5 Hg19 17 [id number] G>A 09/29/2024 4:05 PM EDT [facility] Methodology The following 50 genes [...] then sequenced on the Illumina NextSeq 2000 ([employer] [place]). A custom bioinformatics pipeline aligns [...] hematologic malignancies. 09/29/2024 4:05 PM EDT [facility] Disclaimer This test was developed and its performance characteristics determined by the Clinical Molecular and Genomic Pathology Laboratory at the [facility]. It has not been cleared or [...] laboratory testing. 09/29/2024 4:05 PM EDT [facility] Pathologist Signature Reviewed by: Corey Tejada 09/29/2024 4:05 PM EDT [facility] Bone Marrow Specimen from bone marrow obtained by aspiration / Unknown Non-blood Collection / Unknown 09/19/2024 7:29 AM EDT 09/19/2024 12:03 PM EDT us New Mckinney MD LAB MOLECULAR DIAGNOSTICS ORD ERABLES Final Result Performing Organization Address City/State/[facility] Co de Phone Number [facility] [address] [place] [address], * Chromosome Karyotype, Oncology (09/19/2024 7:29 AM EDT) Specimen Type Bone Marrow 09/24/2024 2:37 PM EDT [facility] Clinical Indication Myelodysplastic Syndrome 09/24/2024 2:37 PM EDT [facility] Specimen Adequacy Adequate 025 2:37 PM EDT [facility] Chromosome Analysis Result Giemsa-banded metaphase cells from unstimulated bone marrow cultures showed a 46,XX[20] chromosome pattern. 09/24/2024 2:37 PM EDT [facility] Interpretation Normal female chromosome analysis. No clonal abnormalities were detected at current resolution. Clinical correlation is recommended. # cells counted = 20 # cells analyzed = 20 # cells karyotyped = 2 Band resolution: 450-525 09/24/2024 2:37 PM EDT [facility] Pathologist Signature Reviewed by: Corey Tejada 09/24/2024 2:37 PM EDT [facility] Bone Marrow Non-blood Collection / Unknown 09/19/2024 7:29 AM EDT 09/19/2024 12:35 PM EDT New Mckinney MD LAB CYTOGENETICS ORDERABLES F inal Result [facility] [address] [place] [address] * Leukemia/Lymphoma - Immunophenotyping by Flow Cytometry (09/19/2024 7:29 AM EDT) Clinical Indication AML 09/22/2024 10:29 AM EDT [facility] Flow Cytometry Interpretation A. BONE MARROW FOR FLOW CYTOMETRY: - MIXED MARROW ELEMENTS WITH NO EVIDENCE OF INCREASED BLASTS OR ABNORMAL LYMPHOID POPULATIONS, SEE COMMENT. 09/22/2024 10:29 AM EDT [facility] Comments CD45/side scatter analysis [...] surface light chains 09/22/2024 10:29 AM EDT [facility] Disclaimer This test was developed and its performance characteristics determined by the Immuno-Molecular Pathology Laboratory at the [facility]. It has not been cleared or [...] on the report. 09/22/2024 10:29 AM EDT [facility] Pathologist Signature Reviewed by: Lisandra Epstein MD 09/22/2024 10:29 AM EDT [facility] MRD Indicated Test Not Indicated 12/2024 10:29 AM EDT [facility] Bone Marrow Specimen from bone marrow obtained by aspiration / Unknown Non-blood Collection / Unknown 09/19/2024 7:29 AM EDT 09/19/2024 12:13 PM EDT New Mckinney MD LAB FLOW CYTOMETRY ORDERABLES Final Result [facility] [address] [place] [address] * Bone marrow exam (09/19/2024 7:29 AM EDT) Case Report Bone Marrow Case: [id number] Authorizing Provider: New Mckinney MD Collected: 09/19/2024 0729 Ordering Location: [facility] Hematology/BMT and Received: 09/19/2024 1216 Cellular Therapy Program Pathologist: Lisandra Epstein MD Specimens: A) - Bone Marrow Aspirate, right B) - Bone Marrow Biopsy, right C) - Peripheral Blood for Bone Marrow 5 3:15 PM EDT [facility] Cytogenetics Report, Addendum Chromosome Analysis Result Giemsa-banded metaphase cells from unstimulated bone marrow cultures showed a 46,XX[20] chromosome pattern. Interpretation Normal female chromosome analysis. No clonal abnormalities were detected at current resolution. Clinical correlation is recommended. 5 3:15 PM EDT [facility] Addendum electronically signed by Lisandra Epstein MD on 09/24/2024 at 1630 EDT Addendum Interpretation The following two (2) genes, TP53 and DNMT3A, with persistent variants have been detected in this bone marrow specimen. The variant, p.[id number], in TP53 gene and the variant, p.[id number], in the RUNX 1 gene are not detectable at current cutoff and coverage established in this lab. Gene: TP53 Mutation: c.814G>A; p.Rkm264Tce Allele Frequency (%): 37% (45% Dec 2023) ID: [id number] Gene: DNMT3A Mutation: c.1522delC; p.[id number] 43 Allele Frequency (%): 36% (48% Dec 2023) Additional Details on Mutation Identified: 3:15 PM EDT [facility] Addendum electronically signed by Lisandra Epstein MD on 09/30/2024 at 1515 EDT Final Diagnosis PERIPHERAL BLOOD AND BONE MARROW, RIGHT POSTERIOR ILIAC CREST, (ASPIRATE SMEAR, AND CORE BIOPSY): - HYPOCELLULAR BONE MARROW WITH MARKEDLY DECREASED MEGAKARYOCYTES; NO SIGNIFICANT DYSPOIESIS OR INCREASE IN BLASTS. 3:15 PM EDT [facility] at 1453 EDT Clinical Information AML 09/14 3:15 PM EDT [facility] CBC and Differential PERIPHERAL [...] blasts are not seen. 3:15 PM EDT [facility] Bone Marrow Differential BONE MARROW DIFFERENTIAL: 200 cells Normal Patient Neutrophils 15-50 34 Metamyelocytes 4-19 3 Myelocytes 1-18 10 Promyelocytes 1-8 1 Blasts 0-2 1 Monocytes 0-5 4 Erythroid 16-38 22 Lymphocytes 3-24 13 Eosinophils 0-6 8 Basophils 0-2 0 Plasma cells 0-4 4 Other 3:15 PM EDT [facility] Bone Marrow Aspirate and Biopsy The bone [...] Bone trabeculae are unremarkable. 3:15 PM EDT [facility] Special and Immunohistochemical Stains Special Stain: A1-1 Vazquez-Giemsa A1-2 Vazquez-Giemsa A1-3 Vazquez-Giemsa C1-1 Vazquez-Giemsa IHC: B1-2 CD34 All controls show appropriate reactivity. All immunohistochemis try, in situ hybridization, and histochemical tests were developed by and are performed at the [facility], [address] [place] [address]. All tests reported here, except those addressing [...] negativity on decalcified specimens. 3:15 PM EDT [facility] Flow Cytometry Interpretation MIXED MARROW ELEMENTS WITH NO EVIDENCE OF INCREASED BLASTS OR ABNORMAL LYMPHOID POPULATIONS ([id number]). 3:15 PM EDT [facility] CYTOGENETICS/MOLECULA R INTERPRETATION Correlation with cytogenetic/molec ular analysis is suggested. 3:15 PM EDT [facility] Gross Description B. RIGHT A single specimen is received in formalin labeled bone marrow biopsy right posterior iliac crest and consists of 2 piece(s) of red/white tissue measuring 2.1/0.3 cm in length 0.2 cm in diameter. The specimen is submitted in to Histology for decalcification and routine processing. Cold Time: <1m 3:15 PM EDT [facility] Note: A resident was involved in the service. I attest I examined the relevant preparations for the specimens and confirmed the diagnosis or interpretation. 3:15 PM EDT [facility] Bone Marrow Peripheral blood [...] PATHOLOGY ORDERABLES Edit ed Result - Final Performing Organization Address City/[facility]/ZIP Co de Phone Number [facility] [address] [place] [address] * Hepatitis C Antibody w/Reflex to HCV Quant PCR (01/07/2024 8:42 AM EDT) Hepatitis C Antibody Negative Negative 01/07/2024 10:13 AM EDT [facility] Blood Venous blood specimen / Unknown Venipuncture / Unknown 01/07/2024 8:42 AM EDT 01/07/2024 9:25 AM EDT New Mckinney MD LAB BLOOD ORDERABLES Final Re sult Performing Organization Address City/[facility]/ZIP Co de Phone Number [facility] [address] [place] [address] from Last 3 Months or Most Recently Relevant to Health Maintenance Insurance MEDICARE ANTH Care Teams Public Relations Relationship Specialty Start Date End Date Jevon Vazquez MD [address] [place] [address] #1 #1 JulienJOSEP [id number] PCP - General 03/23/22
--- OUTSIDE RECORDS SUMMARY | 2024-10-31 08:59 | XMS_ITS | Encounter Summary ---
Author Organization Healthcare Address [address] [place] [address] Care Team Providers Care Automatic Machine Attendant Name Role Phone Jevon Vazquez MD Primary Care Provider [phone] Encounter Details Date Type Department Care Team [...] Hematology/BMT and Cellular Therapy Program [address] [address] 11/13/2024 1:30 PM EDT Office Visit [facility] Hematology/BMT and Cellular Therapy Program [address] [phone] Zonia Hoffman, RODDY 800 [facility] [address] [place] [phone] 11/13/2024 3:00 PM EDT Appointment [facility] [address] [place] [address] 11/14/2024 1:00 PM EDT Appointment [facility] [address] [place] [address] 11/15/2024 1:00 PM EDT Appointment [facility] [address] [place] [address] 11/16/2024 1:00 PM EDT Appointment [facility] [address] [place] [address] 11/17/2024 3:00 PM EDT Appointment [facility] 2 [address] [place] [address] 11/18/2024 3:00 PM EDT Appointment [facility] 1 [address] [place] [address] 11/19/2024 2:00 PM EDT Appointment [facility] 2 [address] [place] [address] documented as of this encounter Visit Diagnoses Not on filedocumented in this encounter Additional Health Concerns Assessment Noted Time A fall risk assessment has been complete d for the patient 09/30/2024 9:33 AM EDT A Body Mass Index follow-up plan has been documented for the patient 05/28/2024 1:52 PM EST documented as of this encounter Care Teams Automatic Machine Attendant Relationship Specialty Start Date End Date Jevon Vazquez MD [address] [place] [address] #1 #1 Julien JOSEP [id number] PCP - General 03/23/22 documented as of this encounter
--- OUTSIDE RECORDS SUMMARY | 2024-10-31 08:59 | XMS_ITS | Clinical Summary ---
Author Organization [facility] Address [address] [place] [address] Phone Care Team Providers Care Steel Crane Operator Name Role Phone Jevon Vazquez MD Primary Care Provider [phone] Allergies Active Allergy Reactions Criticality Noted Date [...] L4-5 LAMINECTOMY; Surgeon: Ivan Bartholomew MD; Location: [facility] MAIN OR; Service: Spine Medical [...] 5.6 % 11/14/2022 2:57 PM EDT PREFERRED [employer], [employer] Est. Avg Glucose 148 mg/dL 11/14/2022 2:57 PM EDT [employer], [facility] Blood VENOUS BLOOD / Unknown Venipuncture / Unknown 11/11/2022 3:46 PM EDT 11/11/2022 3:55 PM EDT Narrative [facility] [employer] [facility] - 11/14/2022 2:57 PM EDT REFERENCE RANGE: Normal: 4.0-5.6% Pre-diabetes: 5.7-6.4% Provisional diagnosis of diabetes: >6.4% Hgb F>10% and anything which shortens red cell survival, such as hemolytic anemia, or unstable hemoglobin variants such as HbSS, HbSC, or HbCC, will lower the HbA1c value associated with a given level of glycemic control. us Lexi Maloney DO CHEMISTRY ORDERABLES Final R esult [facility] [employer] [facility] [address] [facility] , [place] [address] * (ABNORMAL) BASIC METABOLIC PANEL (11/11/2022 3:46 PM EDT) Sodium 136 136 - 145 mmol/L 11/11/2022 4:11 PM EDT [facility] Potassium 3.8 3.5 - 5.0 mmol/L 11/11/2022 4:11 PM EDT [facility] Chloride 102 98 - 107 mmol/L 11/11/2022 4:11 PM EDT [facility] Total CO2 24 22 - 29 mmol/L 11/11/2022 4:11 PM EDT [facility] Anion Gap 10 7 - 16 mmol/L 11/11/2022 4:11 PM EDT [facility] Calcium 10.1 8.8 - 10.4 mg/dL 11/11/2022 4:11 PM EDT [facility] Glucose Lvl 147(H) 82 - 100 mg/dL 11/11/2022 4:11 PM EDT [facility] BUN 15 8 - 23 mg/dL 11/11/2022 4:11 PM EDT [facility] Creatinine 0.82 0.51 - 1.30 mg/dL 11/11/2022 4:11 PM EDT [facility] eGFR (CKD-EPIcr 2020) 76 >=60 mL/min/1.7 3 m2 11/11/2022 4:11 PM EDT [facility] Comment:Estimated GFR was ca lculated using the CKD-EPIcr (2020) equation refit without race. The equation is recommended by the National Kidney Foundation - [place] [employer] of Nephrology Task Force. Blood VENOUS BLOOD / Unknown Venipuncture / Unknown 11/11/2022 3:46 PM EDT 11/11/2022 3:54 PM EDT us Leona Hanna DO CHEMISTRY ORDERABLES Final Res ult [facility] [address] [place] [address] * DX BONE DENSITY AXIAL SKELETON (07/25/2022 9:14 AM EDT) Anatomical Region Laterality Modality Dexa Scan 07/25/2022 Narrative 07/25/2022 3:45 PM EDT Indication: The patient is a female age 65 or older who requires a bone density assessment. Study was performed on [employer] 5. Bone Density: Region BMD T-score [...] Most Recently Relevant to Health Maintenance [place] [address] [place] [address] MEDICARE SUPPLEMENT MEDICARE [place] PART A AND B Member Subscriber Plan / Payer (Ef fective 2016-Present) Name:Ashly Hernández Member ID:[id number] Relation to Subscriber:Self Name:Ashly Hernández Subscriber ID:[id number] Payer ID:Not on file Group ID:Not on file Type:Not on file Address: [address] MEDICARE SUPPLEMENT MEDICARE [place] PART A & [place] [phone] MEDICARE [place] PART A AND B Member Subscriber Plan / Payer (Ef fective 2016-Present) Name:Ashly Hernández Member ID:[id number] Relation to Subscriber:Self Name:Ashly Hernández Subscriber ID:[id number] Payer ID:Not on file Group ID:Not on file Type:Not on file Address: [address] MEDICARE SUPPLEMENT [employer] MEDICARE [place] PART A AND B [address] MEDICARE SUPPLEMENT Advance Directives For more information, please contact: [phone] * Full Code (Latest Code Status on File) Date Activated Date Inactivated Comments 11/14/2022 6:53 PM 11/16/2022 7:37 PM * Full Code Date Activated Date Inactivated Comments 11/12/2022 5:17 AM 11/14/2022 6:47 PM Care Teams Steel Crane Operator Relationship Specialty Start Date End Date Jevon Vazquez MD [address] [place] [address] PCP - General Family Medicine 11/10/22
--- OUTSIDE RECORDS SUMMARY | 2024-10-31 08:59 | XMS_ITS | Encounter Summary ---
Author Organization Healthcare Address [address] [place] [address] Care Team Providers Care Knit Goods Cutter Hand Name Role Phone Jevon Vazquez MD Primary Care Provider [phone] Encounter Details Date Type Department Care Team [...] Hematology/BMT and Cellular Therapy Program [address] [address] 11/13/2024 1:30 PM EDT Office Visit [facility] Hematology/BMT and Cellular Therapy Program [address] [address] Zonia Hoffman, RODDY 800 [facility] [address] [place] [address] 11/13/2024 3:00 PM EDT Appointment [facility] [address] [place] [address] 11/14/2024 1:00 PM EDT Appointment [facility] [address] [place] [address] 11/15/2024 1:00 PM EDT Appointment [facility] [address] [place] [address] 11/16/2024 1:00 PM EDT Appointment [facility] [address] [place] [address] 11/17/2024 3:00 PM EDT Appointment [facility] 2 [address] [place] [address] 11/18/2024 3:00 PM EDT Appointment [facility] 1 [address] [place] [address] 11/19/2024 2:00 PM EDT Appointment [facility] 2 [address] [place] [address] documented as of this encounter Visit Diagnoses Not on filedocumented in this encounter Additional Health Concerns Assessment Noted Time A fall risk assessment has been complete d for the patient 09/30/2024 9:33 AM EDT A Body Mass Index follow-up plan has been documented for the patient 05/28/2024 1:52 PM EST documented as of this encounter Care Teams Knit Goods Cutter Hand Relationship Specialty Start Date End Date Jevon Vazquez MD [address] [place] [address] #1 #1 Julien JOSEP [id number] PCP - General 03/23/22 documented as of this encounter
--- OUTSIDE RECORDS SUMMARY | 2024-10-31 08:59 | XMS_ITS | Encounter Summary ---
Author Organization Healthcare Address [address] [place] [address] Care Team Providers Care Classification Analyst Name Role Phone Jevon Vazquez MD Primary Care Provider [phone] Encounter Details Date Type Department Care Team [...] Hematology/BMT and Cellular Therapy Program [address] [address] 11/13/2024 1:30 PM EDT Office Visit [facility] Hematology/BMT and Cellular Therapy Program [address] [address] Zonia Hoffman, RODDY 800 [facility] [address] [place] [address] 11/13/2024 3:00 PM EDT Appointment [facility] 800 [place] [address] 11/14/2024 1:00 PM EDT Appointment [facility] [address] [place] [address] 11/15/2024 1:00 PM EDT Appointment [facility] [address] [place] [address] 11/16/2024 1:00 PM EDT Appointment [facility] [address] [place] [address] 11/17/2024 3:00 PM EDT Appointment [facility] 2 [address] [place] [address] 11/18/2024 3:00 PM EDT Appointment [facility] 1 [address] [place] [address] 11/19/2024 2:00 PM EDT Appointment [facility] 2 [address] [place] [address] documented as of this encounter Visit Diagnoses Not on filedocumented in this encounter Additional Health Concerns Assessment Noted Time A fall risk assessment has been complete d for the patient 09/19/2024 8:38 AM EDT A Body Mass Index follow-up plan has been documented for the patient 05/28/2024 1:52 PM EST documented as of this encounter Care Teams Classification Analyst Relationship Specialty Start Date End Date Jevon Vazquez MD [address] [place] [address] #1 #1 Julien JOSEP [id number] PCP - General 03/23/22 documented as of this encounter
--- OUTSIDE RECORDS SUMMARY | 2024-10-31 08:59 | XMS_ITS | Encounter Summary ---
Author Organization Healthcare Address [address] [place] [address] Care Team Providers Care Fur Cutter Name Role Phone Jevon Vazquez MD Primary Care Provider [phone] Encounter Details Date Type Department Care Team [...] Hematology/BMT and Cellular Therapy Program [address] [address] 11/13/2024 1:30 PM EDT Office Visit [facility] Hematology/BMT and Cellular Therapy Program [address] [address] Zonia Hoffman, RODDY 800 [facility] [address] [place] [address] 11/13/2024 3:00 PM EDT Appointment [facility] 800 [place] [address] 11/14/2024 1:00 PM EDT Appointment [facility] [address] [place] [address] 11/15/2024 1:00 PM EDT Appointment [facility] 800 [place] [address] 11/16/2024 1:00 PM EDT Appointment [facility] 800 [place] [address] 11/17/2024 3:00 PM EDT Appointment [facility] 2 [address] [place] [address] 11/18/2024 3:00 PM EDT Appointment [facility] 1 [address] [place] [address] 11/19/2024 2:00 PM EDT Appointment [facility] 2 [address] [place] [address] documented as of this encounter Visit Diagnoses Not on filedocumented in this encounter Additional Health Concerns Assessment Noted Time A fall risk assessment has been complete d for the patient 09/30/2024 9:33 AM EDT A Body Mass Index follow-up plan has been documented for the patient 05/28/2024 1:52 PM EST documented as of this encounter Care Teams Fur Cutter Relationship Specialty Start Date End Date Jevon Vazquez MD [address] [place] [address] #1 #1 Julien JOSEP [address] PCP - General 03/23/22 documented as of this encounter
--- OUTSIDE RECORDS SUMMARY | 2024-10-31 08:59 | XMS_ITS | Encounter Summary ---
Author Organization Healthcare Address [address] [place] [address] Care Team Providers Care Midlevel Provider Name Role Phone Jevon Vazquez MD [...] Hematology/BMT and Cellular Therapy Program [address] [address] 11/13/2024 1:30 PM EDT Office Visit [facility] Hematology/BMT and Cellular Therapy Program [address] [address] Zonia Hoffman, RODDY 800 [facility] [address] [place] [address] 11/13/2024 3:00 PM EDT Appointment [facility] 800 [place] [address] 11/14/2024 1:00 PM EDT Appointment [facility] [address] [place] [address] 11/15/2024 1:00 PM EDT Appointment [facility] [address] [place] [address] 11/16/2024 1:00 PM EDT Appointment [facility] [address] [place] [address] 11/17/2024 3:00 PM EDT Appointment [facility] 2 [address] [place] [address] 11/18/2024 3:00 PM EDT Appointment [facility] 1 [address] [place] [address] 11/19/2024 2:00 PM EDT Appointment [facility] 2 [address] [place] [address] documented as of this encounter Visit Diagnoses Not on filedocumented in this encounter Additional Health Concerns Assessment Noted Time A fall risk assessment has been complete d for the patient 09/30/2024 9:33 AM EDT A Body Mass Index follow-up plan has been documented for the patient 05/28/2024 1:52 PM EST documented as of this encounter Care Teams Midlevel Provider Relationship Specialty Start Date End Date Jevon Vazquez MD [address] [place] [address] #1 #1 Julien JOSEP [id number] PCP - General 03/23/22 documented as of this encounter
--- OUTSIDE RECORDS SUMMARY | 2024-10-31 08:59 | XMS_ITS | Encounter Summary ---
Author Organization Healthcare Address [address] [place] [address] Care Team Providers Care Food Cart Attendant Name Role Phone Jevon Vazquez MD Primary Care Provider [phone] Encounter Details Date Type Department Care Team [...] Hematology/BMT and Cellular Therapy Program [address] [address] 11/13/2024 1:30 PM EDT Office Visit [facility] Hematology/BMT and Cellular Therapy Program [address] [address] Zonia Hoffman, RODDY 800 [facility] [address] [place] [address] 11/13/2024 3:00 PM EDT Appointment [facility] 800 [place] [address] 11/14/2024 1:00 PM EDT Appointment [facility] [address] [place] [address] 11/15/2024 1:00 PM EDT Appointment [facility] [address] [place] [address] 11/16/2024 1:00 PM EDT Appointment [facility] [address] [place] [address] 11/17/2024 3:00 PM EDT Appointment [facility] 2 [address] [place] [address] 11/18/2024 3:00 PM EDT Appointment [facility] 1 [address] [place] [address] 11/19/2024 2:00 PM EDT Appointment [facility] 2 [address] [place] [address] documented as of this encounter Visit Diagnoses Not on filedocumented in this encounter Additional Health Concerns Assessment Noted Time A fall risk assessment has been complete d for the patient 09/30/2024 9:33 AM EDT A Body Mass Index follow-up plan has been documented for the patient 05/28/2024 1:52 PM EST documented as of this encounter Care Teams Food Cart Attendant Relationship Specialty Start Date End Date Jevon Vazquez MD [address] [place] [address] #1 #1 Julien JOSEP [id number] PCP - General 03/23/22 documented as of this encounter
--- OUTSIDE RECORDS SUMMARY | 2024-10-31 08:59 | XMS_ITS | Encounter Summary ---
Author Organization Healthcare Address [address] [place] [address] Care Team Providers Care Advertising Internship Name Role Phone Jevon Vazquez MD Primary Care Provider [phone] Encounter Details Date Type Department Care Team [...] Cellular Therapy Program [address] [address] 11/13/2024 1:30 PM EDT Office Visit [facility] Hematology/BMT and Cellular Therapy Program [address] [address] Zonia Hoffman, RODDY 800 [facility] [address] [place] [address] 11/13/2024 3:00 PM EDT Appointment [facility] 800 [place] [address] 11/14/2024 1:00 PM EDT Appointment [facility] [address] [place] [address] 11/15/2024 1:00 PM EDT Appointment [facility] 800 [place] [address] 11/16/2024 1:00 PM EDT Appointment [facility] 800 [place] [address] 11/17/2024 3:00 PM EDT Appointment [facility] 2 [address] [place] [address] 11/18/2024 3:00 PM EDT Appointment [facility] 1 [address] [place] [address] 11/19/2024 2:00 PM EDT Appointment [facility] 2 [address] [place] [address] documented as of this encounter Visit Diagnoses Not on filedocumented in this encounter Additional Health Concerns Assessment Noted Time A fall risk assessment has been complete d for the patient 09/19/2024 8:38 AM EDT A Body Mass Index follow-up plan has been documented for the patient 05/28/2024 1:52 PM EST documented as of this encounter Care Teams Advertising Internship Relationship Specialty Start Date End Date Jevon Vazquez MD [address] [place] [address] #1 #1 Julien JOSEP [id number] PCP - General 03/23/22 documented as of this encounter
--- OUTSIDE RECORDS SUMMARY | 2024-10-31 08:59 | XMS_ITS | Encounter Summary ---
Author Organization Healthcare Address [address] [place] [address] Care Team Providers Care Port Captain Name Role Phone Jevon Vazquez MD Primary Care Provider [phone] Encounter Details Date Type Department Care Team [...] Hematology/BMT and Cellular Therapy Program [address] [address] 11/13/2024 1:30 PM EDT Office Visit [facility] Hematology/BMT and Cellular Therapy Program [address] [address] Zonia Hoffman, RODDY 800 [facility] [address] [place] [address] 11/13/2024 3:00 PM EDT Appointment [facility] 800 [place] [address] 11/14/2024 1:00 PM EDT Appointment [facility] [address] [place] [address] 11/15/2024 1:00 PM EDT Appointment [facility] [address] [place] [address] 11/16/2024 1:00 PM EDT Appointment [facility] [address] [place] [address] 11/17/2024 3:00 PM EDT Appointment [facility] 2 [address] [place] [address] 11/18/2024 3:00 PM EDT Appointment [facility] 1 [address] [place] [address] 11/19/2024 2:00 PM EDT Appointment [facility] 2 [address] [place] [address] documented as of this encounter Visit Diagnoses Not on filedocumented in this encounter Additional Health Concerns Assessment Noted Time A fall risk assessment has been complete d for the patient 09/19/2024 8:38 AM EDT A Body Mass Index follow-up plan has been documented for the patient 05/28/2024 1:52 PM EST documented as of this encounter Care Teams Port Captain Relationship Specialty Start Date End Date Jevon Vazquez MD [address] [place] [address] #1 #1 Julien JOSEP [id number] PCP - General 03/23/22 documented as of this encounter
--- OUTSIDE RECORDS SUMMARY | 2024-10-31 08:59 | XMS_ITS | Encounter Summary ---
Author Organization Healthcare Address [address] [place] [address] Care Team Providers Care Biofuels Processing Technician Name Role Phone Jevon Vazquez MD Primary Care Provider [phone] Encounter Details Date Type Department Care Team [...] Hematology/BMT and Cellular Therapy Program [address] [address] 11/13/2024 1:30 PM EDT Office Visit [facility] Hematology/BMT and Cellular Therapy Program [address] [address] Zonia Hoffman, RODDY 800 [facility] [address] [place] [address] 11/13/2024 3:00 PM EDT Appointment [facility] 800 [place] [address] 11/14/2024 1:00 PM EDT Appointment [facility] [address] [place] [address] 11/15/2024 1:00 PM EDT Appointment [facility] 800 [place] [address] 11/16/2024 1:00 PM EDT Appointment [facility] 800 [place] [address] 11/17/2024 3:00 PM EDT Appointment [facility] 2 [address] [place] [address] 11/18/2024 3:00 PM EDT Appointment [facility] 1 [address] [place] [address] 11/19/2024 2:00 PM EDT Appointment [facility] 2 [address] [place] [address] documented as of this encounter Visit Diagnoses Not on filedocumented in this encounter Additional Health Concerns Assessment Noted Time A fall risk assessment has been complete d for the patient 09/30/2024 9:33 AM EDT A Body Mass Index follow-up plan has been documented for the patient 05/28/2024 1:52 PM EST documented as of this encounter Care Teams Biofuels Processing Technician Relationship Specialty Start Date End Date Jevon Vazquez MD [address] [place] [address] #1 #1 Julien JOSEP [address] PCP - General 03/23/22 documented as of this encounter
[2024-10-31] MEDS: SODIUM CHLORIDE 0.9% 10ML FLUSH SYRINGE 10 ML IV (09:15)
[2024-10-31 09:27] LABS: Hematocrit 27.5 % (37.0-47.0); Hemoglobin 9.6 g/dL (12.2-16.2); Immature Granulocytes % 0.4 %; Mean Corpuscular HGB Conc 34.9 g/dL (31.8-35.4); Mean Corpuscular Hemoglobin 36.1 pg (27.0-31.2); Mean Corpuscular Volume 103.4 fl (81-99); Nucleated Red Blood Cells % 0 %; Red Blood Count 2.66 M/mm3 (4.20-5.40); Red Cell Distribution Width-SD 81.5 fL; White Blood Count 2.6 K/mm3 (4.8-10.8)
[2024-10-31 09:31] LABS: Platelet Count 16 K/mm3 (142-424)
[2024-10-31 09:32] LABS: Alanine Aminotransferase 13 U/L (12-78); Albumin Level 3.6 g/dl (3.5-5.0); Albumin/Globulin Ratio 1.6 (1.1-1.8); Alkaline Phosphatase 41 U/L (38-126); Anion Gap 12.9 mEq/L (5-15); Aspartate Amino Transferase 36 U/L (14-36); Bilirubin,Total 0.5 mg/dl (0.2-1.3); Blood Urea Nitrogen 24 mg/dl (7-17); Calcium 9.7 mg/dl (8.4-10.2); Carbon Dioxide 25 mmol/L (22.0-30.0); Chloride 105 mmol/L (98-107); Creatinine Clearance Estimated 46 mL/min (50-200); Creatinine,Serum 1.00 mg/dl (0.52-1.04); Estimated Glomerular Filt Rate 54 ml/min (>60); GFR (African American) 66 ML/MIN (>60); Globulin 2.2 g/dL (1.3-3.2); Glucose 138 mg/dl (74-100); Potassium 3.9 mmoL/L (3.5-5.1); Sodium 139 mmol/L (136-145); Total Protein,Serum 5.8 g/dl (6.3-8.2)
== END 2024-10-31 09:40 | disposition home or self-care (01) ==
LOC: INF 08:56
PROVIDERS: PCP Family Medicine; Visit Provider Internal Medicine Medical Oncology
DX: C92.00 Acute myeloblastic leukemia, not having achieved remission (principal)
CPT/HCPCS: 36591; 80053; 85025; J1642

== ENCOUNTER 2024-11-05 08:59 | Outpatient (CLI) | payer MEDICARE, BC, SELFPAY ==
--- OUTSIDE RECORDS SUMMARY | 2024-09-19 07:30 | XMS_ITS | Encounter Summary ---
Author Organization [facility] Address [address] [place] [address] Care Team Providers Care Registered Private Duty Nurse Name Role Phone Jevon Vazquez MD Primary Care Provider [phone] Reason for Visit * Reason Comments Nurse Visit Encounter Details Date Type Department Care Team ([facility] Contact Info) Description 09/19/2024 7:30 AM EDT Clinical Support [facility] Hematology/BMT and Cellular Therapy Program [address] [phone] Social History Tobacco Use Types Packs/Day Years [...] Upcoming Encounters Date Type Department Care Team ([facility] Contact Info) Description 11/13/2024 1:00 PM EDT Clinical Support [facility] Hematology/BMT and Cellular Therapy Program [address] [phone] 11/13/2024 1:30 PM EDT Office Visit [facility] Hematology/BMT and Cellular Therapy Program [address] [phone] Zonia Hoffman, ENERGY SALES BROKER 800 [facility] [address] [place] [address] 11/13/2024 3:00 PM EDT Appointment [facility] [address] [place] [address] 11/14/2024 1:00 PM EDT Appointment [facility] [address] [place] [address] 11/15/2024 1:00 PM EDT Appointment [facility] [address] [place] [address] 11/16/2024 1:00 PM EDT Appointment [facility] [address] [place] [address] 11/17/2024 3:00 PM EDT Appointment [facility] 2 [address] [place] [address] 11/18/2024 3:00 PM EDT Appointment [facility] 1 [address] [place] [address] 11/19/2024 2:00 PM EDT Appointment [facility] 2 [address] [place] [address] documented as of this encounter Visit Diagnoses Not on filedocumented in this encounter Additional Health Concerns Assessment Noted Time A fall risk assessment has been complete d for the patient 09/19/2024 8:38 AM EDT A Body Mass Index follow-up plan has been documented for the patient 05/28/2024 1:52 PM EST documented as of this encounter Care Teams Registered Private Duty Nurse Relationship Specialty Start Date End Date Jevon Vazquez MD [address] [place] [address] #1 [address]1 [place] [address] PCP - General 03/23/22 documented as of this encounter
--- OUTSIDE RECORDS SUMMARY | 2024-09-19 09:30 | XMS_ITS | Encounter Summary ---
Author Organization Healthcare Address [address] [place] [address] Care Team Providers Care Marketing Ambassador Name Role Phone Jevon Vazquez MD Primary Care Provider [phone] Reason for Visit * Reason Comments Follow-up Encounter Details Date Type Department Care Team (Latest Contact Info) Description 09/19/2024 9:30 AM EDT Clinical Support [facility] [address] [place] [address] Acute myeloid leukemia not having achieved remission [...] Miscellaneous Notes * Clinician Note - Doreen Savage RN - 09/19/2024 9:30 AM EDT Patient [...] Upcoming Encounters Date Type Department Care Team ([facility] st Contact Info) Description 11/13/2024 1:00 PM EDT Clinical Support [facility] Cellular Therapy [facility] [address] [place] [address] 11/13/2024 1:30 PM EDT Office Visit [facility] Therapy [facility] [address] [place] [address] Zonia Hoffman, SPECIAL NEEDS LIBRARIAN 800 [facility] [address] [place] [address] 11/13/2024 3:00 PM EDT Appointment [facility] In[facility] [address] [place] [address] 11/14/2024 1:00 PM EDT Appointment [facility] [address] [place] [address] 11/15/2024 1:00 PM EDT Appointment [facility] [address] [place] [address] 11/16/2024 1:00 PM EDT Appointment [facility] [address] [place] [address] 11/17/2024 3:00 PM EDT Appointment [facility] Infusion Clinic 2 [address] [place] [address] 11/18/2024 3:00 PM EDT Appointment [facility] Infusion Clinic 1 [address] [place] [address] 11/19/2024 2:00 PM EDT Appointment [facility] Infusion Clinic 2 [address] [place] [address] documented as of this encounter Procedures Procedure Name Priority Date/Time Associated Diagnosis Comments PLATELET COUNT, BLOOD STAT 09/19/2024 10:04 AM EDT PREPARE PLATELETS Routine 09/19/2024 9:0 8 AM EDT documented in this encounter Results * (ABNORMAL) Platelet count (09/19/2024 10:04 AM EDT) Platelet Count 61(L) 155 - 369 10*3/uL LAB HEMATOLOGY METHOD 09/19/2024 10:19 AM EDT [facility] Blood Blood sample taken from central line / Unknown (Port) Long-term Catheter / Unknown 09/19/2024 10:04 AM EDT 09/19/2024 10:18 AM EDT us New Mckinney MD LAB BLOOD ORDERABLES Final Re sult [facility] [address] [place] [address] * Transfuse platelets, Irradiated (09/19/2024 10:02 AM EDT) us Lexi Ferraro APRN BLOOD TRANSFUSION ORDERABL ES Final Result * Prepare Leukocyte Reduced Platelets (09/19/2024 9:08 AM EDT) Product Code [id number] CH BLOO D BANK Dispense Status Transfused BLOOD BANK Blood Expiration Date [id number] BLOOD BANK Unit Number [id number] CH B LOOD BANK Product Blood Type 6200 BLOOD BANK Blood Type A+ CH BLOOD BANK us Provider Not In System BLOOD BANK PRODUCT ORD ERABLES Final Result BLOOD BANK [address] documented in this encounter Visit Diagnoses [...] documented as of this encounter Care Teams Marketing Ambassador Relationship Specialty Start Date End Date Jevon Vazquez MD [address] [place] [address] #1 [address]1 [place] [id number] PCP - General 03/23/22 documented as of this encounter
--- OUTSIDE RECORDS SUMMARY | 2024-09-19 12:00 | XMS_ITS | Encounter Summary ---
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) Procedures Leukemia/Lymphoma - Immunophenotyping by Flow Cytometry New Mckinney MD 800 [facility] Cancer [address] [address] Phone: tel: fax: Referral ID Status Reason Start Date Expiration Date V isits Requested Visits Authorized [id number] Authorized 09/11/2024 03/13/2026 1 1 Encounter Details Date Type Department Care Team (Latest Contact Info) Description 09/19/2024 12:00 PM EDT Procedure Visit [facility] Hematology/BMT and Cellular Therapy Program [address] [address] Lexi Ferraro, RODDY 800 [facility] Cancer [address] [address] Acute myeloid leukemia not having [...] to surronding structures. Alternatives discussed: Delayed treatment [place] protocol: Procedure explained and questions answered to [...] Upcoming Encounters Date Type Department Care Team ([facility] st Contact Info) Description 11/13/2024 1:00 PM EDT Clinical Support [facility] Hematology/BMT and Cellular Therapy Program [address] [address] 11/13/2024 1:30 PM EDT Office Visit [facility] Hematology/BMT and Cellular Therapy Program [address] [address] Zonia Hoffman APRN 800 [facility]tr [address] [place] [address] 11/13/2024 3:00 PM EDT Appointment [facility] [address] [place] [address] 11/14/2024 1:00 PM EDT Appointment [facility] [address] [place] [address] 11/15/2024 1:00 PM EDT Appointment [facility] [address] [place] [address] 11/16/2024 1:00 PM EDT Appointment [facility] [address] [place] [address] 11/17/2024 3:00 PM EDT Appointment [facility] [address] [place] [address] 11/18/2024 3:00 PM EDT Appointment [facility] 1 [address] [place] [address] 11/19/2024 2:00 PM EDT Appointment [facility] [address] [place] [address] documented as of this encounter Procedures Procedure [...] to surronding structures. Alternatives discussed: Delayed treatment [place] protocol: Procedure explained and questions answered to [...] Type Bone Marrow 09/24/2024 2:37 PM EDT [facility] Clinical Indication Myelodysplastic Syndrome 09/24/2024 2:37 PM EDT [facility] Specimen Adequacy Adequate 025 2:37 PM EDT [facility] Chromosome Analysis Result Giemsa-banded metaphase cells from unstimulated bone marrow cultures showed a 46,XX[20] chromosome pattern. 09/24/2024 2:37 PM EDT [facility] Interpretation Normal female chromosome analysis. No clonal abnormalities were detected at current resolution. Clinical correlation is recommended. # cells counted = 20 # cells analyzed = 20 # cells karyotyped = 2 Band resolution: 450-525 09/24/2024 2:37 PM EDT [facility] Pathologist Signature Reviewed by: Corey Tejada 09/24/2024 2:37 PM EDT [facility] Bone Marrow Non-blood Collection / Unknown 09/19/2024 7:29 AM EDT 09/19/2024 12:35 PM EDT us New Mckinney MD LAB CYTOGENETICS ORDERABLES F inal Result [facility] [address] [place] [address] * Myeloid Focused Panel, 50 gene (09/19/2024 7:29 AM EDT) Interpretation The following two (2) genes, TP53 and DNMT3A, with persistent variants have been detected in this bone marrow specimen. The variant, p.[id number], in TP53 gene and the variant, p.[id number], in the RUNX 1 gene are not detectable at current cutoff and coverage established in this lab. Gene: TP53 Mutation: c.814G>A; p.Xud698Emq Allele Frequency (%): 37% (45% Dec 2023) ID: [id number] Gene: DNMT3A Mutation: c.1522delC; p.[id number] 3 Allele Frequency (%): 36% (48% Dec 2023) Additional Details on Mutation Identified: Gene Transcript Genome Chrom Coordinate RefVar DNMT3A [id number] Hg19 2 [id number] delC TP53 NM_[id number] Hg19 17 [id number] G>A 09/29/2024 4:05 PM EDT [facility] Methodology The following 50 genes [...] then sequenced on the Illumina NextSeq 2000 ([employer], [place]). A custom bioinformatics pipeline aligns [...] of hematologic malignancies. 09/29/2024 4:05 PM T [facility] Disclaimer This test was developed and its performance characteristics determined by the Clinical Molecular and Genomic Pathology Laboratory at the [facility]. It has not been cleared or approved [...] clinical laboratory testing. 09/29/2024 4:05 PM EDT [facility] Pathologist Signature Reviewed by: Corey Tejada 09/29/2024 4:05 PM [facility] Bone Marrow Specimen from bone marrow obtained by aspiration / Unknown Non-blood Collection / Unknown 09/19/2024 7:29 AM EDT 09/19/2024 12:03 PM EDT us New Mckinney MD LAB MOLECULAR DIAGNOSTICS ORD ERABLES Final Result [facility] [address] [place] [address], * Leukemia/Lymphoma - Immunophenotyping by Flow Cytometry (09/19/2024 7:29 AM EDT) Clinical Indication AML 09/22/2024 10:29 AM EDT [facility] Flow Cytometry Interpretation A. BONE MARROW FOR FLOW CYTOMETRY: - MIXED MARROW ELEMENTS WITH NO EVIDENCE OF INCREASED BLASTS OR ABNORMAL LYMPHOID POPULATIONS, SEE COMMENT. 09/22/2024 10:29 AM EDT [facility] Comments CD45/side scatter analysis shows a [...] surface light chains 09/22/2024 10:29 AM EDT [facility] Disclaimer This test was developed and its performance characteristics determined by the Immuno-Molecular Pathology Laboratory at the [facility]. It has not been cleared or approved [...] on the report. 09/22/2024 10:29 AM EDT [facility] Pathologist Signature Reviewed by: Lisandra Epstein MD 09/22/2024 10:29 AM EDT [facility] MRD Indicated Test Not Indicated 12/2024 10:29 AM EDT [facility] Bone Marrow Specimen from bone marrow obtained by aspiration / Unknown Non-blood Collection / Unknown 09/19/2024 7:29 AM EDT 09/19/2024 12:13 PM EDT us New Mckinney MD LAB FLOW CYTOMETRY ORDERABLES Final Result [facility] [address] [place] [address] * (ABNORMAL) CBC and differential (09/19/2024 7:29 AM EDT) WBC Count 2.70(L) 3.70 - 10.30 10*3/uL LAB HEMATOLOGY METHOD 09/19/2024 9:13 AM EDT [facility] RBC Count 1.86(L) 3.90 - 5.20 10*6/uL LAB HEMATOLOGY METHOD 09/19/2024 9:13 AM EDT [facility] HGB 7.1(L) 11.2 - 15.7 g/dL LAB HEMATOLOGY METHOD 09/19/2024 9:13 AM EDT [facility] HCT 21.5(L) 34.0 - 45.0 % LAB HEMATOLOGY METHOD 09/19/2024 9:13 AM EDT [facility] Platelet Count 14(LL) 155 - 369 10*3/uL LAB HEMATOLOGY METHOD 09/19/2024 9:13 AM EDT [facility] MCV 116(H) 79 - 98 fL LAB HEMATOLOGY METHOD 09/19/2024 9:13 AM EDT [facility] MCH 38.2(H) 26.0 - 32.0 pg LAB HEMATOLOGY METHOD 09/19/2024 9:13 AM EDT [facility] MCHC 33.0 30.7 - 35.5 g/dL LAB HEMATOLOGY METHOD 09/19/2024 9:13 AM EDT [facility] RDW 21.8(H) 11.5 - 14.5 % LAB HEMATOLOGY METHOD 09/19/2024 9:13 AM EDT [facility] MPV 13.5(H) 8.8 - 12.5 fL LAB HEMATOLOGY METHOD 09/19/2024 9:13 AM EDT [facility] nRBC 0.0 <=0.0 per 100 WBCs LAB HEMATOLOGY METHOD 09/19/2024 9:13 AM EDT [facility] Differential Type Automated LAB HEMATOLOGY METHOD 09/19/2024 9:13 AM EDT [facility] Neutrophils % 51 % LAB HEMATOLOGY METHOD 09/19/2024 9:13 AM EDT [facility] Lymphocytes % 41 % LAB HEMATOLOGY METHOD 09/19/2024 9:13 AM EDT [facility] Monocytes % 7 % LAB HEMATOLOGY METHOD 09/19/2024 9:13 AM EDT [facility] Eosinophils % 1 % LAB HEMATOLOGY METHOD 09/19/2024 9:13 AM EDT [facility] Basophils % 0 % LAB HEMATOLOGY METHOD 09/19/2024 9:13 AM EDT [facility] Immature Granulocytes % 0 % LAB HEMATOLOGY METHOD 09/19/2024 9:13 AM EDT [facility] Neutrophils Absolute 1.35(L) 1.60 - 6.10 10*3/uL LAB HEMATOLOGY METHOD 09/19/2024 9:13 AM EDT [facility] Lymphocytes Absolute 1.10(L) 1.20 - 3.90 10*3/uL LAB HEMATOLOGY METHOD 09/19/2024 9:13 AM EDT [facility] Monocytes Absolute 0.20(L) 0.30 - 0.90 10*3/uL LAB HEMATOLOGY METHOD 09/19/2024 9:13 AM EDT [facility] Eosinophils Absolute 0.03 0.00 - 0.50 10*3/uL LAB HEMATOLOGY METHOD 09/19/2024 9:13 AM EDT [facility] Basophils Absolute 0.01 0.00 - 0.10 10*3/uL LAB HEMATOLOGY METHOD 09/19/2024 9:13 AM EDT [facility] Immature Granulocytes Absolute 0.01 0.00 - 0.06 10*3/uL LAB HEMATOLOGY METHOD 09/19/2024 9:13 AM EDT [facility] Blood Blood sample taken from central line / Unknown (Port) Long-term Catheter / Unknown 09/19/2024 7:29 AM EDT 09/19/2024 8:08 AM EDT Narrative [facility] - 09/19/2024 9:13 AM EDT Therapeutic decision making should be based on absolute values, rather than percentages. us New Mckinney MD LAB BLOOD ORDERABLES Final Re sult [facility] [address] [place] [address] * Bone marrow exam (09/19/2024 7:29 AM EDT) Case Report Bone Marrow Case: [id number] Authorizing Provider: New Mckinney MD Collected: 09/19/2024 0729 Ordering Location: [facility] Hematology/BMT and Received: 09/19/2024 1216 Cellular Therapy Program Pathologist: Lisandra Epstein MD Specimens: A) - Bone Marrow Aspirate, right B) - Bone Marrow Biopsy, right C) - Peripheral Blood for Bone Marrow 3:15 PM EDT [facility] Cytogenetics Report, Addendum Chromosome Analysis Result Giemsa-banded metaphase cells from unstimulated bone marrow cultures showed a 46,XX[20] chromosome pattern. Interpretation Normal female chromosome analysis. No clonal abnormalities were detected at current resolution. Clinical correlation is recommended. 3:15 PM EDT [facility] Addendum electronically signed by Lisandra Epstein MD on 09/24/2024 at 1630 EDT Addendum Interpretation The following two (2) genes, TP53 and DNMT3A, with persistent variants have been detected in this bone marrow specimen. The variant, p.[id number], in TP53 gene and the variant, p.[id number], in the RUNX 1 gene are not detectable at current cutoff and coverage established in this lab. Gene: TP53 Mutation: c.814G>A; p.Rwv372Vtc Allele Frequency (%): 37% (45% Dec 2023) ID: [id number] Gene: DNMT3A Mutation: c.1522delC; p.Ise944GufzwVha8 43 Allele Frequency (%): 36% (48% Dec 2023) Additional Details on Mutation Identified: 3:15 PM EDT [facility] Addendum electronically signed by Lisandra Epstein MD on 09/30/2024 at 1515 EDT Final Diagnosis PERIPHERAL BLOOD AND BONE MARROW, RIGHT POSTERIOR ILIAC CREST, (ASPIRATE SMEAR, AND CORE BIOPSY): - HYPOCELLULAR BONE MARROW WITH MARKEDLY DECREASED MEGAKARYOCYTES; NO SIGNIFICANT DYSPOIESIS OR INCREASE IN BLASTS. 3:15 PM EDT [facility] at 1453 EDT Clinical Information AML 09/14 3:15 PM EDT [facility] CBC and Differential PERIPHERAL [...] blasts are not seen. 3:15 PM EDT [facility] Bone Marrow Differential BONE MARROW DIFFERENTIAL: 200 cells Normal Patient Neutrophils 15-50 34 Metamyelocytes 4-19 3 Myelocytes 1-18 10 Promyelocytes 1-8 1 Blasts 0-2 1 Monocytes 0-5 4 Erythroid 16-38 22 Lymphocytes 3-24 13 Eosinophils 0-6 8 Basophils 0-2 0 Plasma cells 0-4 4 Other 3:15 PM EDT [facility] Bone Marrow Aspirate and [...] Bone trabeculae are unremarkable. 3:15 PM EDT [facility] Special and Immunohistochemical Stains Special Stain: A1-1 Vazquez-Giemsa A1-2 Vazquez-Giemsa A1-3 Vazquez-Giemsa C1-1 Vazquez-Giemsa IHC: B1-2 CD34 All controls show appropriate reactivity. All immunohistochemis try, in situ hybridization, and histochemical tests were developed by and are performed at the [facility], [address] [place] [address]. All tests reported here, except those addressing [...] negativity on decalcified specimens. 3:15 PM T [facility] Flow Cytometry Interpretation MIXED MARROW ELEMENTS WITH NO EVIDENCE OF INCREASED BLASTS OR ABNORMAL LYMPHOID POPULATIONS ([id number]). 3:15 PM EDT [facility] CYTOGENETICS/MOLECULA R INTERPRETATION Correlation with cytogenetic/molec ular analysis is suggested. 3:15 PM T [facility] Gross Description B. RIGHT A single specimen is received in formalin labeled bone marrow biopsy right posterior iliac crest and consists of 2 piece(s) of red/white tissue measuring 2.1/0.3 cm in length 0.2 cm in diameter. The specimen is submitted in to Histology for decalcification and routine processing. Cold Time: <1m 3:15 PM T [facility] Note: A resident was involved in the service. I attest I examined the relevant preparations for the specimens and confirmed the diagnosis or interpretation. 3:15 PM EDT [facility] Bone Marrow Peripheral blood [...] PATHOLOGY ORDERABLES Edit ed Result - Final [facility] [address] [place] [address] documented in this encounter Visit Diagnoses Diagnosis [...] as of this encounter Care Teams Corporate Real Estate Manager Relationship Specialty Start Date End Date Jevon Vazquez MD [address] [place] [address] #1 #1 JOSEP [place] [id number] PCP - General 03/23/22 documented as of this encounter
--- OUTSIDE RECORDS SUMMARY | 2024-09-30 09:00 | XMS_ITS | Encounter Summary ---
Author Organization Healthcare Address [address] [place] [address] Care Team Providers Care Debt Collector Name Role Phone Jevon Vazquez MD Primary Care Provider Reason for Visit * Reason Comments Labs Only Encounter Details Date Type Department Care Team ([facility] Contact Info) Description 09/30/2024 9:00 AM EDT Clinical Support [facility] Hematology/BMT and Cellular Therapy Program [address] [place] [phone] Jyoti Kemp Acute myeloid leukemia not having [...] Upcoming Encounters Date Type Department Care Team ([facility] Contact Info) Description 11/13/2024 1:00 PM EDT Clinical Support [facility] Hematology/BMT and Cellular Therapy Program [address] [phone] 11/13/2024 1:30 PM EDT Office Visit [facility] Hematology/BMT and Cellular Therapy Program [address] [phone] Zonia Hoffman, HOME HEALTH CARE PROVIDER 800 [facility] [address] [place] [phone] 11/13/2024 3:00 PM EDT Appointment [facility] [address] [place] [address] 11/14/2024 1:00 PM EDT Appointment [facility] [address] [place] [address] 11/15/2024 1:00 PM EDT Appointment [facility] [address] [place] [address] 11/16/2024 1:00 PM EDT Appointment [facility] [address] [place] [address] 11/17/2024 3:00 PM EDT Appointment [facility] 2 [address] [place] [address] 11/18/2024 3:00 PM EDT Appointment [facility] 1 [address] [place] [address] 11/19/2024 2:00 PM EDT Appointment [facility] 2 [address] [place] [address] documented as of this encounter Procedures Procedure [...] - 99 mg/dL 09/30/2024 10:20 AM EDT [facility] BUN, Plasma 21 8 - 23 mg/dL 09/30/2024 10:20 AM EDT [facility] Creatinine, Plasma 1.00 0.60 - 1.10 mg/dL 09/30/2024 10:20 AM EDT [facility] BUN/Creatinine Ratio 21 09/30/2024 10:20 AM EDT [facility] Sodium, Plasma 137 136 - 145 mmol/L 09/30/2024 10:20 AM EDT [facility] Potassium, Plasma 3.8 3.6 - 4.9 mmol/L 09/30/2024 10:20 AM EDT [facility] Chloride, Plasma 107 97 - 107 mmol/L 09/30/2024 10:20 AM EDT [facility] CO2, Plasma 22 22 - 29 mmol/L 09/30/2024 10:20 AM EDT [facility] Anion Gap 8 6 - 16 mmol/L 09/30/2024 10:20 AM EDT [facility] Total Calcium, Plasma 9.8 8.9 - 10.2 mg/dL 09/30/2024 10:20 AM EDT [facility] Total Protein 5.9(L) 6.3 - 7.9 g/dL 09/30/2024 10:20 AM EDT [facility] Albumin, Plasma 3.8 3.5 - 5.2 g/dL 09/30/2024 10:20 AM EDT [facility] AST, Plasma 28 10 - 35 U/L 09/30/2024 10:20 AM EDT [facility] ALT, Plasma 14 10 - 35 U/L 09/30/2024 10:20 AM EDT [facility] Alkaline Phosphatase, Plasma 34(L) 46 - 142 U/L 09/30/2024 10:20 AM EDT [facility] Total Bilirubin, Plasma 0.3 0.2 - 1.1 mg/dL 09/30/2024 10:20 AM EDT [facility] eGFRcr 59.6 mL/min/1.7 3m*2 09/30/2024 10:20 AM EDT [facility] Comment:Reported eGFRcr in m L/min/1.73m2 is based the CKD-EPI 2020 equation that does not use a race coefficient. Blood Venous blood specimen / Unknown (Port) Long-term Catheter / Unknown 09/30/2024 9:11 AM EDT 09/30/2024 9:50 AM EDT us Zonia Hardy [employer] HOME HEALTH CARE PROVIDER LAB BLOOD ORDERABLES Final Res ult [facility] [address] [place] [address] * (ABNORMAL) CBC and Differential (09/30/2024 9:11 AM EDT) WBC Count 3.34(L) 3.70 - 10.30 10*3/uL LAB HEMATOLOGY METHOD 09/30/2024 11:07 AM EDT [facility] RBC Count 1.91(L) 3.90 - 5.20 10*6/uL LAB HEMATOLOGY METHOD 09/30/2024 11:07 AM EDT [facility] HGB 7.7(L) 11.2 - 15.7 g/dL LAB HEMATOLOGY METHOD 09/30/2024 11:07 AM EDT [facility] HCT 22.8(L) 34.0 - 45.0 % LAB HEMATOLOGY METHOD 09/30/2024 11:07 AM EDT [facility] Platelet Count 17(LL) 155 - 369 10*3/uL LAB HEMATOLOGY METHOD 09/30/2024 11:07 AM EDT [facility] MCV 119(H) 79 - 98 fL LAB HEMATOLOGY METHOD 09/30/2024 11:07 AM EDT [facility] MCH 40.3(H) 26.0 - 32.0 pg LAB HEMATOLOGY METHOD 09/30/2024 11:07 AM EDT [facility] MCHC 33.8 30.7 - 35.5 g/dL LAB HEMATOLOGY METHOD 09/30/2024 11:07 AM EDT [facility] RDW 18.7(H) 11.5 - 14.5 % LAB HEMATOLOGY METHOD 09/30/2024 11:07 AM EDT [facility] MPV 11.1 8.8 - 12.5 fL LAB HEMATOLOGY METHOD 09/30/2024 11:07 AM EDT [facility] nRBC 0.0 <=0.0 per 100 WBCs LAB HEMATOLOGY METHOD 09/30/2024 11:07 AM EDT [facility] Differential Type Automated LAB HEMATOLOGY METHOD 09/30/2024 11:07 AM EDT [facility] Neutrophils % 65 % LAB HEMATOLOGY METHOD 09/30/2024 11:07 AM EDT [facility] Lymphocytes % 26 % LAB HEMATOLOGY METHOD 09/30/2024 11:07 AM EDT [facility] Monocytes % 7 % LAB HEMATOLOGY METHOD 09/30/2024 11:07 AM EDT [facility] Eosinophils % 1 % LAB HEMATOLOGY METHOD 09/30/2024 11:07 AM EDT [facility] Basophils % 1 % LAB HEMATOLOGY METHOD 09/30/2024 11:07 AM EDT [facility] Immature Granulocytes % 0 % LAB HEMATOLOGY METHOD 09/30/2024 11:07 AM EDT [facility] Neutrophils Absolute 2.17 1.60 - 6.10 10*3/uL LAB HEMATOLOGY METHOD 09/30/2024 11:07 AM EDT [facility] Lymphocytes Absolute 0.87(L) 1.20 - 3.90 10*3/uL LAB HEMATOLOGY METHOD 09/30/2024 11:07 AM EDT [facility] Monocytes Absolute 0.24(L) 0.30 - 0.90 10*3/uL LAB HEMATOLOGY METHOD 09/30/2024 11:07 AM EDT [facility] Eosinophils Absolute 0.03 0.00 - 0.50 10*3/uL LAB HEMATOLOGY METHOD 09/30/2024 11:07 AM EDT [facility] Basophils Absolute 0.02 0.00 - 0.10 10*3/uL LAB HEMATOLOGY METHOD 09/30/2024 11:07 AM EDT [facility] Immature Granulocytes Absolute 0.01 0.00 - 0.06 10*3/uL LAB HEMATOLOGY METHOD 09/30/2024 11:07 AM EDT [facility] Blood Venous blood specimen / Unknown (Port) Long-term Catheter / Unknown 09/30/2024 9:11 AM EDT 09/30/2024 9:34 AM EDT [facility] - 09/30/2024 11:07 AM EDT Therapeutic decision making should be based on absolute values, rather than percentages. 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
--- OUTSIDE RECORDS SUMMARY | 2024-09-30 09:30 | XMS_ITS | Encounter Summary ---
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 female. Referring Physician: Zonia Hoffman, LINE HELPER 800 [facility] [address] [address] Primary Care Provider: Jevon Vazquez MD Chief [...] k/??L. 12/2023- seen by Dr. Manzano in [facility] for evaluation of anemia [...] interphase cells examined show a deletion of A1P599. Next generation sequencing: Abnormal: TP53 (c.814G>A; p.[id number]) frequency 45%, DMNT3A (c.1522delC; p.[id number]) frequency 48%, RUNX1 (c.336_338delGCC; p.Cmd203fgw) frequency 35% Azacitidine + Venetoclax Cycle 1: [...] - Continue local lab checks MWF at [facility] Allogenic transplant planning. 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 However, given her older age > 70, she would benefit from a geriatric BMT program and will make referrals should she be interested. Expected pancytopenia related to chemotherapy/AML. Check CBC x 3 times/week at [facility] Labs reviewed today, Hgb 7.7 [...] charts, reviewing results, and documenting. RODDY Cristina [facility] HEMATOLOGY/BMT AND CELLULAR THERAPY PROGRAM 800 [facility] [address] 40 minutes was spent on this encounter; [...] Encounters Date Type Department Care Team ([facility] st Contact Info) Description 11/13/2024 1:00 PM EDT Clinical Support [facility] Hematology/BMT and Cellular Therapy Program 750 [facility], [address] [place] [address] [place] [address] 11/13/2024 1:30 PM EDT Office Visit [facility] Hematology/BMT and Cellular Therapy Program [address] [place] [address] Zonia Hoffman, LINE HELPER 800 [facility] [address] [place] [phone] 11/13/2024 3:00 PM EDT Appointment [facility] 800 [place] [address] 11/14/2024 1:00 PM EDT Appointment [facility] [address] [place] [address] 11/15/2024 1:00 PM EDT Appointment [facility] [address] [place] [address] 11/16/2024 1:00 PM EDT Appointment [facility] [address] [place] [address] 11/17/2024 3:00 PM EDT Appointment [facility] 2 [address] [place] [address] 11/18/2024 3:00 PM EDT Appointment [facility] 1 [address] [place] [address] 11/19/2024 2:00 PM EDT Appointment [facility] 2 [address] [place] [address] documented as of this encounter Results * (ABNORMAL) Comprehensive Metabolic Panel, Plasma (09/30/2024 9:11 AM EDT) [facility] Glucose, Plasma 135(H) 74 - 99 mg/dL [...] Res ult [facility] 800 [place] [address] * (ABNORMAL) CBC and Differential (09/30/2024 9:11 [...] Res ult [facility] 800 [place] [address] documented in this encounter Visit Diagnoses Diagnosis [...] documented as of this encounter Care Teams Fuel Injection Servicer Relationship Specialty Start Date End Date Jevon Vazquez MD [address] [place] [address] #1 #1 [place] [id number] PCP - General 03/23/22 documented as of this encounter
--- OUTSIDE RECORDS SUMMARY | 2024-11-05 09:04 | XMS_ITS | Encounter Summary ---
Author Organization Healthcare Address [address] [place] [address] Care Team Providers Care Management Developer Name Role Phone Jevon Vazquez MD Primary Care Provider [phone] Encounter Details Date Type Department Care Team [...] Hematology/BMT and Cellular Therapy Program [address] [address] 11/13/2024 1:30 PM EDT Office Visit [facility] Hematology/BMT and Cellular Therapy Program [address] [address] Zonia Hoffman, RODDY 800 [facility] [address] [place] [address] 11/13/2024 3:00 PM EDT Appointment [facility] 800 [place] [address] 11/14/2024 1:00 PM EDT Appointment [facility] [address] [place] [address] 11/15/2024 1:00 PM EDT Appointment [facility] 800 [place] [address] 11/16/2024 1:00 PM EDT Appointment [facility] [address] [place] [address] 11/17/2024 3:00 PM EDT Appointment [facility] 2 [address] [place] [address] 11/18/2024 3:00 PM EDT Appointment [facility] 1 [address] [place] [address] 11/19/2024 2:00 PM EDT Appointment [facility] 2 [address] [place] [address] documented as of this encounter Visit Diagnoses Not on filedocumented in this encounter Additional Health Concerns Assessment Noted Time A fall risk assessment has been complete d for the patient 09/19/2024 8:38 AM EDT A Body Mass Index follow-up plan has been documented for the patient 05/28/2024 1:52 PM EST documented as of this encounter Care Teams Management Developer Relationship Specialty Start Date End Date Jevon Vazquez MD [address] [place] [address] #1 #1 Julien JOSEP [address] PCP - General 03/23/22 documented as of this encounter
--- OUTSIDE RECORDS SUMMARY | 2024-11-05 09:04 | XMS_ITS | Encounter Summary ---
Author Organization Healthcare Address [address] [place] [address] Care Team Providers Care Cable Dispatcher Name Role Phone Jevon Vazquez MD Primary Care Provider [phone] Encounter Details Date Type Department Care Team ([facility] Contact Info) Description 09/19/2024 Orders Only [facility] Hematology/BMT and Cellular Therapy Program [address] [phone] 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, RN [facility] [...] Upcoming Encounters Date Type Department Care Team ([facility] Contact Info) Description 11/13/2024 1:00 PM EDT Clinical Support [facility] Hematology/BMT and Cellular Therapy Program [address] [address] 11/13/2024 1:30 PM EDT Office Visit [facility] Hematology/BMT and Cellular Therapy Program [address] [phone] Zonia Hoffman, CONDENSER OPERATOR 800 [facility] [address] [place] [address] 11/13/2024 3:00 PM EDT Appointment [facility] 800 [place] [address] 11/14/2024 1:00 PM EDT Appointment [facility] [address] [place] [address] 11/15/2024 1:00 PM EDT Appointment [facility] 800 [place] [address] 11/16/2024 1:00 PM EDT Appointment [facility] [address] [place] [address] 11/17/2024 3:00 PM EDT Appointment [facility] 2 [address] [place] [address] 11/18/2024 3:00 PM EDT Appointment [facility] 1 [address] [place] [address] 11/19/2024 2:00 PM EDT Appointment [facility] 2 [address] [place] [address] documented as of this encounter Visit Diagnoses Not on filedocumented in this encounter Additional Health Concerns Assessment Noted Time A fall risk assessment has been complete d for the patient 09/19/2024 8:38 AM EDT A Body Mass Index follow-up plan has been documented for the patient 05/28/2024 1:52 PM EST documented as of this encounter Care Teams Cable Dispatcher Relationship Specialty Start Date End Date Jevon Vazquez MD [address] [place] [address] #1 #[address] [place] [address] PCP - General 03/23/22 documented as of this encounter
--- OUTSIDE RECORDS SUMMARY | 2024-11-05 09:04 | XMS_ITS | Encounter Summary ---
Author Organization [facility] Address [address] [place] [address] Care Team Providers Care Tube Bender Name Role Phone Jevon Vazquez MD Primary Care Provider [phone] Encounter Details Date Type Department [facility] Team ([facility] Contact Info[facility] Description 10/29/2024 Refill [facility] Hematology/BMT and Cellular Therapy Program [address] [address] Zonia Hoffman, TANK TRUCK LOADER 800 [facility] [address] [place] [address] Acute myeloid leukemia not having achieved remission [...] Upcoming Encounters Date Type Department Care Team ([facility] Contact Info) Description 11/13/2024 1:00 PM EDT Clinical Support [facility] Hematology/BMT and Cellular Therapy Program [address] [address] 11/13/2024 1:30 PM EDT Office Visit [facility] Hematology/BMT and Cellular Therapy Program [address] [place] [address] Zonia Hoffman, TANK TRUCK LOADER 800 [facility] [address] [place] [address] 11/13/2024 3:00 PM EDT Appointment [facility] 800 [place] [address] 11/14/2024 1:00 PM EDT Appointment [facility] 800 [place] [address] 11/15/2024 1:00 PM EDT Appointment [facility] 800 [place] [address] 11/16/2024 1:00 PM EDT Appointment [facility] 800 [place] [address] 11/17/2024 3:00 PM EDT Appointment [facility] 2 [address] [place] [address] 11/18/2024 3:00 PM EDT Appointment [facility] 1 [address]44 [place] [address] 11/19/2024 2:00 PM EDT Appointment [facility] 2 [address] [place] [address] documented as of this encounter Visit Diagnoses [...] documented as of this encounter Care Teams Tube Bender Relationship Specialty Start Date End Date Jevon Vazquez MD [address] [place] [address] #1 #1 [place]P [place] [id number] PCP - General 03/23/22 documented as of this encounter
--- OUTSIDE RECORDS SUMMARY | 2024-11-05 09:04 | XMS_ITS | Encounter Summary ---
Author Organization Healthcare Address [address] [place] [address] Care Team Providers Care Vp Ad Products And Planning Name Role Phone Jevon Vazquez MD Primary Care Provider [phone] Encounter Details Date Type Department Care Team ([facility] st Contact Info) Description 10/13/2024 Telephone [facility] Hematology/BMT and Cellular Therapy Program [address] [address] Zonia Hoffman, PROJECT ESTIMATOR 800 [facility] [address] [place] [address] Social History Tobacco Use Types Packs/Day Years [...] needs to be delayed again Callback number: [phone] documented in this encounter Plan of Treatment Upcoming Encounters Date Type Department Care Team ([facility] st Contact Info) Description 11/13/2024 1:00 PM EDT Clinical Support [facility] Hematology/BMT and Cellular Therapy Program [address] [address] 11/13/2024 1:30 PM EDT Office Visit [facility] Hematology/BMT and Cellular Therapy Program [address] [address] Zonia Hoffman, PROJECT ESTIMATOR 800 [facility] [address] [place] [address] 11/13/2024 3:00 PM EDT Appointment [facility] 800 [place] [address] 11/14/2024 1:00 PM EDT Appointment [facility] [address] [place] [address] 11/15/2024 1:00 PM EDT Appointment [facility] 800 [place] [address] 11/16/2024 1:00 PM EDT Appointment [facility] 800 [place] [address] 11/17/2024 3:00 PM EDT Appointment [facility] 2 7[address] [place] [address] 11/18/2024 3:00 PM EDT Appointment [facility] 1 [address] [place] [address] 11/19/2024 2:00 PM EDT Appointment [facility] 2 [address] [place] [address] documented as of this encounter Visit Diagnoses Not on filedocumented in this encounter Additional Health Concerns Assessment Noted Time A fall risk assessment has been complete d for the patient 09/30/2024 9:33 AM EDT A Body Mass Index follow-up plan has been documented for the patient 05/28/2024 1:52 PM EST documented as of this encounter Care Teams Vp Ad Products And Planning Relationship Specialty Start Date End Date Jevon Vazquez MD [address] [place] [address] #1 #1 [place] [id number] PCP - General 03/23/22 documented as of this encounter
--- OUTSIDE RECORDS SUMMARY | 2024-11-05 09:04 | XMS_ITS | Encounter Summary ---
Author Organization Healthcare Address [address] [place] [address] Care Team Providers Care Applied Technologist Name Role Phone Jevon Vazquez MD Primary Care Provider [phone] Encounter Details Date Type Department Care Team [...] Hematology/BMT and Cellular Therapy Program [address] [address] 11/13/2024 1:30 PM EDT Office Visit [facility] Hematology/BMT and Cellular Therapy Program [address] [address] Zonia Hoffman, RODDY 800 [facility] [address] [place] [address] 11/13/2024 3:00 PM EDT Appointment [facility] Infusion 800 [place] [address] 11/14/2024 1:00 PM EDT Appointment [facility] [address] [place] [address] 11/15/2024 1:00 PM EDT Appointment [facility] 800 [place] [address] 11/16/2024 1:00 PM EDT Appointment [facility] 800 [place] [address] 11/17/2024 3:00 PM EDT Appointment [facility] 2 744 [place] [address] 11/18/2024 3:00 PM EDT Appointment [facility] 1 [address]44 [place] [address] 11/19/2024 2:00 PM EDT Appointment [facility] 2 [address] [place] [address] documented as of this encounter Visit Diagnoses Not on filedocumented in this encounter Additional Health Concerns Assessment Noted Time A fall risk assessment has been complete d for the patient 07/30/2024 8:29 AM EDT A Body Mass Index follow-up plan has been documented for the patient 05/28/2024 1:52 PM EST documented as of this encounter Care Teams Applied Technologist Relationship Specialty Start Date End Date Jevon Vazquez MD [address] [place] [address] #1 #1 Julien JOSEP [id number] PCP - General 03/23/22 documented as of this encounter
--- OUTSIDE RECORDS SUMMARY | 2024-11-05 09:04 | XMS_ITS | Encounter Summary ---
Author Organization Healthcare Address [address] [place] [address] Care Team Providers Care Teacher Name Role Phone Jevon Vazquez MD Primary Care Provider [phone] Encounter Details Date Type Department Care Team [...] Hematology/BMT and Cellular Therapy Program [address] [address] 11/13/2024 1:30 PM EDT Office Visit [facility] Hematology/BMT and Cellular Therapy Program [address] [address] Zonia Hoffman, RODDY 800 [facility] [address] [place] [address] 11/13/2024 3:00 PM EDT Appointment [facility]fusion 800 [place] [address] 11/14/2024 1:00 PM EDT Appointment [facility] [address] [place] [address] 11/15/2024 1:00 PM EDT Appointment [facility] 800 [place] [address] 11/16/2024 1:00 PM EDT Appointment [facility] 800 [place] [address] 11/17/2024 3:00 PM EDT Appointment [facility] 2 744 [place] [address] 11/18/2024 3:00 PM EDT Appointment [facility] 1 744 [place] [address] 11/19/2024 2:00 PM EDT Appointment [facility] 2 744 [place] [address] documented as of this encounter Visit Diagnoses Not on filedocumented in this encounter Additional Health Concerns Assessment Noted Time A fall risk assessment has been complete d for the patient 09/30/2024 9:33 AM EDT A Body Mass Index follow-up plan has been documented for the patient 05/28/2024 1:52 PM EST documented as of this encounter Care Teams Teacher Relationship Specialty Start Date End Date Jevon Vazquez MD [address] [place] [address] #1 #1 Julien JOSEP [id number] PCP - General 03/23/22 documented as of this encounter
--- OUTSIDE RECORDS SUMMARY | 2024-11-05 09:04 | XMS_ITS | Encounter Summary ---
Author Organization Healthcare Address [address] [place] [address] Care Team Providers Care Academic Interventionist Name Role Phone Jevon Vazquez MD Primary Care Provider [phone] Encounter Details Date Type Department Care Team [...] Hematology/BMT and Cellular Therapy Program [address] [address] 11/13/2024 1:30 PM EDT Office Visit [facility] Hematology/BMT and Cellular Therapy Program [address] [address] Zonia Hoffman, RODDY 800 [facility] [address] [place] [address] 11/13/2024 3:00 PM EDT Appointment [facility] Infusion 800 [place] [address] 11/14/2024 1:00 PM EDT Appointment [facility] [address] [place] [address] 11/15/2024 1:00 PM EDT Appointment [facility]fusion 800 [place] [address] 11/16/2024 1:00 PM EDT Appointment [facility] 800 [place] [address] 11/17/2024 3:00 PM EDT Appointment [facility] 2 7[address] [place] [address] 11/18/2024 3:00 PM EDT Appointment [facility] 1 [address]44 [place] [address] 11/19/2024 2:00 PM EDT Appointment [facility] 2 [address] [place] [address] documented as of this encounter Visit Diagnoses Not on filedocumented in this encounter Additional Health Concerns Assessment Noted Time A fall risk assessment has been complete d for the patient 09/19/2024 8:38 AM EDT A Body Mass Index follow-up plan has been documented for the patient 05/28/2024 1:52 PM EST documented as of this encounter Care Teams Academic Interventionist Relationship Specialty Start Date End Date Jevon Vazquez MD [address] [place] [address] #1 #1 Julien JOSEP [id number] PCP - General 03/23/22 documented as of this encounter
--- OUTSIDE RECORDS SUMMARY | 2024-11-05 09:04 | XMS_ITS | Encounter Summary ---
Author Organization Healthcare Address [address] [place] [address] Care Team Providers Care Creative Specialist Name Role Phone Jevon Vazquez MD Primary Care Provider [phone] Encounter Details Date Type Department Care Team [...] Cellular Therapy Program [address] [address] 11/13/2024 1:30 PM EDT Office Visit [facility] Hematology/BMT and Cellular Therapy Program [address] [address] Zonia Hoffman, RODDY 800 [facility] [address] [place] [address] 11/13/2024 3:00 PM EDT Appointment [facility] Infusion 800 [place] [address] 11/14/2024 1:00 PM EDT Appointment [facility]fusion [address] [place] [address] 11/15/2024 1:00 PM EDT Appointment [facility] Infusion 800 [place] [address] 11/16/2024 1:00 PM EDT Appointment [facility]fusion 800 [place] [address] 11/17/2024 3:00 PM EDT Appointment [facility] 2 [address] [place] [address] 11/18/2024 3:00 PM EDT Appointment [facility] 1 744 [place] [address] 11/19/2024 2:00 PM EDT Appointment [facility] 2 [address] [place] [address] documented as of this encounter Visit Diagnoses Not on filedocumented in this encounter Additional Health Concerns Assessment Noted Time A fall risk assessment has been complete d for the patient 07/30/2024 8:29 AM EDT A Body Mass Index follow-up plan has been documented for the patient 05/28/2024 1:52 PM EST documented as of this encounter Care Teams Creative Specialist Relationship Specialty Start Date End Date Jevon Vazquez MD [address] [place] [address] #1 #1 Julien JOSEP [id number] PCP - General 03/23/22 documented as of this encounter
--- OUTSIDE RECORDS SUMMARY | 2024-11-05 09:04 | XMS_ITS | Encounter Summary ---
Author Organization [facility] Address [address] [place] [address] Care Team Providers Care Ear Pull Machine Operator Name Role Phone Jevon Vazquez MD Primary Care Provider [phone] Encounter Details Date Type Department Care Team ([facility] Contact Info) Description 09/19/2024 Telephone [facility] CC Hematology/BMT and Cellular Therapy Program [address] [place] [address] Romana Richmond RN [facility] Social History Tobacco Use [...] Upcoming Encounters Date Type Department Care Team ([facility] Contact Info) Description 11/13/2024 1:00 PM EDT Clinical Support [facility] Hematology/BMT and Cellular Therapy Program [address] [place] [address] 11/13/2024 1:30 PM EDT Office Visit [facility] CC Hematology/BMT and Cellular Therapy Program 750 [facility] [address] [place] [address] Zonia Hoffman, HAT BLOCKING MACHINE OPERATOR 800 [facility] [address] [place] [address] 11/13/2024 3:00 PM EDT Appointment [facility] Infusion 800 [place] [address] 11/14/2024 1:00 PM EDT Appointment [facility] Infusion 800 [place] [address] 11/15/2024 1:00 PM EDT Appointment [facility] Infusion 800 [place] [address] 11/16/2024 1:00 PM EDT Appointment [facility]fusion 800 [place] [address] 11/17/2024 3:00 PM EDT Appointment [facility] 2 [address] [place] [address] 11/18/2024 3:00 PM EDT Appointment [facility] 1 [address] [place] [address] 11/19/2024 2:00 PM EDT Appointment [facility] 2 [address] [place] [address] documented as of this encounter Visit Diagnoses Not on filedocumented in this encounter Additional Health Concerns Assessment Noted Time A fall risk assessment has been complete d for the patient 09/19/2024 8:38 AM EDT A Body Mass Index follow-up plan has been documented for the patient 05/28/2024 1:52 PM EST documented as of this encounter Care Teams Ear Pull Machine Operator Relationship Specialty Start Date End Date Jevon Vazquez MD [address] [place] [address] #1 #1 [place] kumar [id number] PCP - General 03/23/22 documented as of this encounter
--- OUTSIDE RECORDS SUMMARY | 2024-11-05 09:04 | XMS_ITS | Encounter Summary ---
Author Organization Healthcare Address [address] [place] [address] Care Team Providers Care Block Breaker Name Role Phone Jevon Vazquez MD Primary Care Provider [phone] Encounter Details Date Type Department Care Team [...] Hematology/BMT and Cellular Therapy Program [address] [address] 11/13/2024 1:30 PM EDT Office Visit [facility] Hematology/BMT and Cellular Therapy Program [address] [address] Zonia Hoffman, RODDY 800 [facility] [address] [place] [address] 11/13/2024 3:00 PM EDT Appointment [facility] Infusion 800 [place] [address] 11/14/2024 1:00 PM EDT Appointment [facility] Infusion 800 [place] [address] 11/15/2024 1:00 PM EDT Appointment [facility] Infusion 800 [place] [address] 11/16/2024 1:00 PM EDT Appointment [facility] Infusion [address] [place] [address] 11/17/2024 3:00 PM EDT Appointment [facility] 2 [address] [place] [address] 11/18/2024 3:00 PM EDT Appointment [facility] 1 [address] [place] [address] 11/19/2024 2:00 PM EDT Appointment [facility] 2 [address] [place] [address] documented as of this encounter Visit Diagnoses Not on filedocumented in this encounter Additional Health Concerns Assessment Noted Time A fall risk assessment has been complete d for the patient 07/30/2024 8:29 AM EDT A Body Mass Index follow-up plan has been documented for the patient 05/28/2024 1:52 PM EST documented as of this encounter Care Teams Block Breaker Relationship Specialty Start Date End Date Jevon Vazquez MD [address] [place] [address] #1 #1 Julien JOSEP [id number] PCP - General 03/23/22 documented as of this encounter
--- OUTSIDE RECORDS SUMMARY | 2024-11-05 09:04 | XMS_ITS | Encounter Summary ---
Author Organization [facility] Address [address] [place] [address] Care Team Providers Care Button Inspector Name Role Phone Jevon Vazquez MD Primary Care Provider [phone] Reason for Visit * Reason Comments Med Refill Encounter Details Date Type Department Care Team ([facility] Contact Info) Description 09/12/2024 Refill [facility] CC Hematology/BMT and Cellular Therapy Program [address] [phone] [place] MD 800 [facility] [address] [place] [address] Social History Tobacco Use Types Packs/Day Years [...] Encounters Date Type Department Care Team ([facility] Contact Info) Description 11/13/2024 1:00 PM EDT Clinical Support [facility] CC Hematology/BMT and Cellular Therapy Program [address] [address] 11/13/2024 1:30 PM EDT Office Visit [facility] CC Hematology/BMT and Cellular Therapy Program [address] [address] Zonia Hoffman, HAND SPRING REPAIRER 800 [facility] [address] [place] [address] 11/13/2024 3:00 PM EDT Appointment [facility] Infusion 800 [place] [address] 11/14/2024 1:00 PM EDT Appointment [facility] Infusion [address] [place] [address] 11/15/2024 1:00 PM EDT Appointment [facility] Infusion [address] [place] [address] 11/16/2024 1:00 PM EDT Appointment [facility] Infusion [address] [place] [address] 11/17/2024 3:00 PM EDT Appointment [facility] 2 [address] [place] [address] 11/18/2024 3:00 PM EDT Appointment [facility] 1 [address] [place] [address] 11/19/2024 2:00 PM EDT Appointment [facility] 2 [address] [place] [address] documented as of this encounter Visit Diagnoses Not on filedocumented in this encounter Additional Health Concerns Assessment Noted Time A fall risk assessment has been complete d for the patient 07/30/2024 8:29 AM EDT A Body Mass Index follow-up plan has been documented for the patient 05/28/2024 1:52 PM EST documented as of this encounter Care Teams Button Inspector Relationship Specialty Start Date End Date Jevon Vazquez MD [address] [place] [address] #1 #1 JulienJOSEP [id number] PCP - General 03/23/22 documented as of this encounter
--- OUTSIDE RECORDS SUMMARY | 2024-11-05 09:04 | XMS_ITS | Encounter Summary ---
Author Organization Healthcare Address [address] [place] [address] Care Team Providers Care Aids Counselor Name Role Phone Jevon Vazquez MD Primary Care Provider [phone] Encounter Details Date Type Department Care Team [...] Hematology/BMT and Cellular Therapy Program [address] [address] 11/13/2024 1:30 PM EDT Office Visit [facility] CC Hematology/BMT and Cellular Therapy Program [address] [address] Zonia Hoffman, RODDY 800 [facility] [address] [place] [address] 11/13/2024 3:00 PM EDT Appointment [facility] Infusion 800 [place] [address] 11/14/2024 1:00 PM EDT Appointment [facility] Infusion [address] [place] [address] 11/15/2024 1:00 PM EDT Appointment [facility] Infusion 800 [place] [address] 11/16/2024 1:00 PM EDT Appointment [facility]fusion 800 [place] [address] 11/17/2024 3:00 PM EDT Appointment [facility] 2 [address] [place] [address] 11/18/2024 3:00 PM EDT Appointment [facility] 1 [address] [place] [address] 11/19/2024 2:00 PM EDT Appointment [facility] 2 [address] [place] [address] documented as of this encounter Visit Diagnoses Not on filedocumented in this encounter Additional Health Concerns Assessment Noted Time A fall risk assessment has been complete d for the patient 07/30/2024 8:29 AM EDT A Body Mass Index follow-up plan has been documented for the patient 05/28/2024 1:52 PM EST documented as of this encounter Care Teams Aids Counselor Relationship Specialty Start Date End Date Jevon Vazquez MD [address] [place] [address] #1 #1 Julien JOSEP [id number] PCP - General 03/23/22 documented as of this encounter
--- OUTSIDE RECORDS SUMMARY | 2024-11-05 09:04 | XMS_ITS | Encounter Summary ---
Author Organization Healthcare Address [address] [place] [address] Care Team Providers Care Director Of Restaurants Name Role Phone Jevon Vazquez MD Primary Care Provider [phone] Encounter Details Date Type Department Care Team [...] Hematology/BMT and Cellular Therapy Program [address] [address] 11/13/2024 1:30 PM EDT Office Visit [facility] CC Hematology/BMT and Cellular Therapy Program [address] [address] Zonia Hoffman, RODDY 800 [facility] [address] [place] [address] 11/13/2024 3:00 PM EDT Appointment [facility] Infusion 800 [place] [address] 11/14/2024 1:00 PM EDT Appointment [facility]fusion [address] [place] [address] 11/15/2024 1:00 PM EDT Appointment [facility] Infusion [address] [place] [address] 11/16/2024 1:00 PM EDT Appointment [facility] [address] [place] [address] 11/17/2024 3:00 PM EDT Appointment [facility] 2 [address] [place] [address] 11/18/2024 3:00 PM EDT Appointment [facility] 1 [address] [place] [address] 11/19/2024 2:00 PM EDT Appointment [facility] 2 [address] [place] [address] documented as of this encounter Visit Diagnoses Not on filedocumented in this encounter Additional Health Concerns Assessment Noted Time A fall risk assessment has been complete d for the patient 09/30/2024 9:33 AM EDT A Body Mass Index follow-up plan has been documented for the patient 05/28/2024 1:52 PM EST documented as of this encounter Care Teams Director Of Restaurants Relationship Specialty Start Date End Date Jevon Vazquez MD [address] [place] [address] #1 #1 Julien JOSEP [id number] PCP - General 03/23/22 documented as of this encounter
--- OUTSIDE RECORDS SUMMARY | 2024-11-05 09:04 | XMS_ITS | Encounter Summary ---
Author Organization Healthcare Address [address] [place] [address] Care Team Providers Care Divinity Professor Name Role Phone Jevon Vazquez MD Primary Care Provider [phone] Encounter Details Date Type Department Care Team [...] Hematology/BMT and Cellular Therapy Program [address] [address] 11/13/2024 1:30 PM EDT Office Visit [facility] Hematology/BMT and Cellular Therapy Program [address] [address] Zonia Hoffman, RODDY 800 [facility] [address] [place] [address] 11/13/2024 3:00 PM EDT Appointment [facility] Infusion 800 [place] [address] 11/14/2024 1:00 PM EDT Appointment [facility]fusion [address] [place] [address] 11/15/2024 1:00 PM EDT Appointment [facility] Infusion [address] [place] [address] 11/16/2024 1:00 PM EDT Appointment [facility] [address] [place] [address] 11/17/2024 3:00 PM EDT Appointment [facility] 2 [address] [place] [address] 11/18/2024 3:00 PM EDT Appointment [facility] 1 [address] [place] [address] 11/19/2024 2:00 PM EDT Appointment [facility] 2 [address] [place] [address] documented as of this encounter Visit Diagnoses Not on filedocumented in this encounter Additional Health Concerns Assessment Noted Time A fall risk assessment has been complete d for the patient 09/19/2024 8:38 AM EDT A Body Mass Index follow-up plan has been documented for the patient 05/28/2024 1:52 PM EST documented as of this encounter Care Teams Divinity Professor Relationship Specialty Start Date End Date Jevon Vazquez MD [address] [place] [address] #1 #1 Julien JOSEP [id number] PCP - General 03/23/22 documented as of this encounter
--- OUTSIDE RECORDS SUMMARY | 2024-11-05 09:04 | XMS_ITS | Encounter Summary ---
Author Organization Healthcare Address [address] [place] [address] Care Team Providers Care Industrial Engineering Technologist Name Role Phone Jevon Vazquez MD Primary Care Provider [phone] Encounter Details Date Type Department Care Team [...] Hematology/BMT and Cellular Therapy Program [address] [address] 11/13/2024 1:30 PM EDT Office Visit [facility] Hematology/BMT and Cellular Therapy Program [address] [address] Zonia Hoffman, RODDY 800 [facility] [address] [place] [address] 11/13/2024 3:00 PM EDT Appointment [facility] [address] [place] [address] 11/14/2024 1:00 PM EDT Appointment [facility] [address] [place] [address] 11/15/2024 1:00 PM EDT Appointment [facility] [address] [place] [address] 11/16/2024 1:00 PM EDT Appointment [facility] [address] [place] [address] 11/17/2024 3:00 PM EDT Appointment [facility] 2 [address] [place] [address] 11/18/2024 3:00 PM EDT Appointment [facility] 1 [address] [place] [address] 11/19/2024 2:00 PM EDT Appointment [facility] 2 [address] [place] [address] documented as of this encounter Visit Diagnoses Not on filedocumented in this encounter Additional Health Concerns Assessment Noted Time A fall risk assessment has been complete d for the patient 09/30/2024 9:33 AM EDT A Body Mass Index follow-up plan has been documented for the patient 05/28/2024 1:52 PM EST documented as of this encounter Care Teams Industrial Engineering Technologist Relationship Specialty Start Date End Date Jevon Vazquez MD [address] [place] [address] #1 #1 Julien JOSEP [id number] PCP - General 03/23/22 documented as of this encounter
--- OUTSIDE RECORDS SUMMARY | 2024-11-05 09:04 | XMS_ITS | Encounter Summary ---
Author Organization Healthcare Address [address] [place] [address] Care Team Providers Care Fire Prevention Research Engineer Name Role Phone Jevon Vazquez MD Primary Care Provider [phone] Encounter Details Date Type Department Care Team [...] Hematology/BMT and Cellular Therapy Program [address] [address] 11/13/2024 1:30 PM EDT Office Visit [facility] Hematology/BMT and Cellular Therapy Program [address] [address] Zonia Hoffman, RODDY 800 [facility] [address] [place] [address] 11/13/2024 3:00 PM EDT Appointment [facility] 800 [place] [address] 11/14/2024 1:00 PM EDT Appointment [facility] [address] [place] [address] 11/15/2024 1:00 PM EDT Appointment [facility] 800 [place] [address] 11/16/2024 1:00 PM EDT Appointment [facility] 800 [place] [address] 11/17/2024 3:00 PM EDT Appointment [facility] 2 744 [place] [address] 11/18/2024 3:00 PM EDT Appointment [facility] 1 744 [place] [address] 11/19/2024 2:00 PM EDT Appointment [facility] 2 744 [place] [address] documented as of this encounter Visit Diagnoses Not on filedocumented in this encounter Additional Health Concerns Assessment Noted Time A fall risk assessment has been complete d for the patient 09/30/2024 9:33 AM EDT A Body Mass Index follow-up plan has been documented for the patient 05/28/2024 1:52 PM EST documented as of this encounter Care Teams Fire Prevention Research Engineer Relationship Specialty Start Date End Date Jevon Vazquez MD [address] [place] [address] #1 #1 Jul[place] JOSEP [address] PCP - General 03/23/22 documented as of this encounter
--- OUTSIDE RECORDS SUMMARY | 2024-11-05 09:04 | XMS_ITS | Encounter Summary ---
Author Organization [facility] Address [address] [place] [address] Care Team Providers Care Installation Superintendent Name Role Phone Jevon Vazquez MD Primary Care Provider [phone] Encounter Details Date Type Department Care Team ([facility] Contact Info) Description 09/15/2024 Telephone [facility] Hematology/BMT and Cellular Therapy Program [address] [phone] Zonia Hoffman, FOOD TRAY ASSEMBLER 800 [facility] [address] [place] [address] Social History Tobacco Use Types Packs/Day Years [...] Team ([facility] Contact Info) Description 11/13/2024 1:00 PM EDT Clinical Support [facility] Hematology/BMT and Cellular Therapy Program [address] [phone] 11/13/2024 1:30 PM EDT Office Visit [facility] Hematology/BMT and Cellular Therapy Program [address] [phone] Zonia Hoffman, FOOD TRAY ASSEMBLER 800 [facility] [address] [place] [address] 11/13/2024 3:00 PM EDT Appointment [facility] 800 [place] [address] 11/14/2024 1:00 PM EDT Appointment [facility] 800 [place] [address] 11/15/2024 1:00 PM EDT Appointment [facility] 800 [place] [address] 11/16/2024 1:00 PM EDT Appointment [facility] [address] [place] [address] 11/17/2024 3:00 PM EDT Appointment [facility] 2 [address] [place] [address] 11/18/2024 3:00 PM EDT Appointment [facility] 1 [address] [place] [address] 11/19/2024 2:00 PM EDT Appointment [facility] 2 [address] [place] [address] documented as of this encounter Visit Diagnoses Not on filedocumented in this encounter Additional Health Concerns Assessment Noted Time A fall risk assessment has been complete d for the patient 07/30/2024 8:29 AM EDT A Body Mass Index follow-up plan has been documented for the patient 05/28/2024 1:52 PM EST documented as of this encounter Care Teams Installation Superintendent Relationship Specialty Start Date End Date Jevon Vazquez MD [address] [place] [address] #1 #1 Julien JOSEP [id number] PCP - General 03/23/22 documented as of this encounter
--- OUTSIDE RECORDS SUMMARY | 2024-11-05 09:04 | XMS_ITS | Clinical Summary ---
Author Organization [facility] Address [address] [place] [address] Care Team Providers Care Manufacturing Quality Inspector Name Role Phone David Vazquez Primary Care Provider [phone] Allergies No known active allergies Medications atorvastatin [...] series) 2025 Medical Devices Implanted Type Area Slitting Machine Feeder Device Identifier Shelf Expiration Date Model / Serial / Lot Mis Ply Scr 6.5x50mm - [id number] Implanted:Qty : 1 on 01/30/2023 by Ivan Bartholomew MD at [facility] Screw N/A: Spine Lumbar [employer] [id number] / / Mis Ply Scr 6.5x45mm - [id number] Implanted:Qty : 3 on 01/30/2023 by Ivan Bartholomew MD at [facility] Screw N/A: Spine Lumbar [employer] [id number] / / Reline Mas Reduction Screw 7.5x45 - [id number] Implanted:Qty : 2 on 01/30/2023 by Ivan Bartholomew MD at [facility] Screw N/A: Spine Lumbar [employer] [id number] / / Grft Dbm Vesuvius Putty 5cc - [id number] Implanted:Qty : 1 on 01/30/2023 by Ivan Bartholomew MD at [facility] [employer] [id number] 04/20/2025 [id number] P / [id number] / Putty I-Factor 5.0cc - [id number] Implanted:Qty : 1 on 01/30/2023 by Ivan Bartholomew MD at [facility] N/A: Spine Lumbar [employer] 03/15/2025 [id number] / / [id number] Modulus Xlw [id number] 10 Degree - [id number] Implanted:Qty : 1 on 01/30/2023 by Ivan Bartholomew MD at [facility] N/A: Spine Lumbar [employer] [id number] / / [id number] Modulus Xlw [id number] - [id number] Implanted:Qty : 1 on 01/30/2023 by Ivan Bartholomew MD at [facility] N/A: Spine Lumbar [employer] 09/28/2027 [id number] / / [id number] Reln Lock Scr 5.5mm Opn Tulip - [id number] Implanted:Qty : 6 on 01/30/2023 by Ivan Bartholomew MD at [facility] N/A: Spine Lumbar [employer] [id number] / / Reln Mas Ti Petar 5.5x70mm - [id number] Implanted:Qty : 2 on 01/30/2023 by Ivan Bartholomew MD at [facility] N/A: Spine Lumbar [employer] [id number] / / Procedures Procedure Name Priority Date/Time [...] Hgb A1C 6.0(H) 4.0 - 5.6 % [facility] Comment: Reference Ranges [...] Glycohemoglobin Standardization program (NGSP) and traceable to [facility] Estimated Average Glucose 126(H) 68 - 114 mg/dL [facility] Whole Blood (Blood) 01/24/2023 2:32 PM EDT 01/24/2023 6:00 PM EDT us Ivan Bartholomew MD CHEMISTRY ORDERABLES Fin al Result [facility] [address] * (ABNORMAL) BASIC METABOLIC PANEL (BMP=EP1) (01/24/2023 2:32 PM EDT) Sodium 141 135 - 146 mmol/L [facility] Potassium 4.8 3.5 - 5.1 mmol/L [facility] Chloride 107 98 - 110 mmol/L [facility] CO2 24 22 - 29 mmol/L [facility] Anion Gap 10 5 - 13 mmol/L [facility] Comment:Anion gap calculatio n does not include potassium (K+) value. BUN 17 7 - 25 mg/dL [facility] Creatinine 1.20 0.50 - 1.20 mg/dL [facility] Glucose 125(H) 71 - 99 mg/dL [facility] Comment:Reference range (71- 99 mg/dL) refers only to fasting samples, and does not apply to non-fasting samples. eGFR CKD-EPI 2020 48 See Note [facility] Comment: eGFR calculated with 2020 CKD-EPI equation using creatinine, patient's age and gender. Other factors, especially muscle mass, may affect accuracy and need to be considered. Patient values should be interpreted as a trend. The reference interval is >60 mL/min/1.73m2. Calcium 10.3 8.5 - 10.5 mg/dL [facility] BUN/Creatinine Ratio 14 [facility] Serum 01/24/2023 2:32 PM EDT 01/24/2023 5:54 PM EDT us Lexi SUAREZ CHEMISTRY ORDERABLES Final Resu lt [facility] [address] from Last 3 Months or Most Recently Relevant to Health Maintenance Insurance MEDICARE PART A [facility] [address] [address] [place] [address] ANTH Advance Directives For more information, please contact: [phone] * Full Code (Latest Code Status on File) Date Activated Date Inactivated Comments 01/30/2023 9:13 AM No automated chest compression devices for [facility] Patients Care Teams Manufacturing Quality Inspector Relationship Specialty Start Date End Date David Vazquez [address] [place] [id number] PCP - General 01/24/23
--- OUTSIDE RECORDS SUMMARY | 2024-11-05 09:04 | XMS_ITS | Encounter Summary ---
Author Organization Healthcare Address [address] [place] [address] Care Team Providers Care Community Associate Name Role Phone Jevon Vazquez MD Primary Care Provider [phone] Encounter Details Date Type Department Care Team [...] Hematology/BMT and Cellular Therapy Program [address] [address] 11/13/2024 1:30 PM EDT Office Visit [facility] Hematology/BMT and Cellular Therapy Program [address] [address] Zonia Hoffman, RODDY 800 [facility] [address] [place] [address] 11/13/2024 3:00 PM EDT Appointment [facility] 800 [place] [address] 11/14/2024 1:00 PM EDT Appointment [facility] [address] [place] [address] 11/15/2024 1:00 PM EDT Appointment [facility] [address] [place] [address] 11/16/2024 1:00 PM EDT Appointment [facility] [address] [place] [address] 11/17/2024 3:00 PM EDT Appointment [facility] 2 [address] [place] [address] 11/18/2024 3:00 PM EDT Appointment [facility] 1 [address] [place] [address] 11/19/2024 2:00 PM EDT Appointment [facility] 2 [address] [place] [address] documented as of this encounter Visit Diagnoses Not on filedocumented in this encounter Additional Health Concerns Assessment Noted Time A fall risk assessment has been complete d for the patient 09/30/2024 9:33 AM EDT A Body Mass Index follow-up plan has been documented for the patient 05/28/2024 1:52 PM EST documented as of this encounter Care Teams Community Associate Relationship Specialty Start Date End Date Jevon Vazquez MD [address] [place] [address] #1 #1 Julien JOSEP [address] PCP - General 03/23/22 documented as of this encounter
--- OUTSIDE RECORDS SUMMARY | 2024-11-05 09:04 | XMS_ITS | Encounter Summary ---
Author Organization Healthcare Address [address] [place] [address] Care Team Providers Care Rubbish Collection Supervisor Name Role Phone Jevon Vazquez MD Primary Care Provider [phone] Encounter Details Date Type Department Care Team [...] Hematology/BMT and Cellular Therapy Program [address] [address] 11/13/2024 1:30 PM EDT Office Visit [facility] Hematology/BMT and Cellular Therapy Program [address] [address] Zonia Hoffman, RODDY 800 [facility] [address] [place] [address] 11/13/2024 3:00 PM EDT Appointment [facility] 800 [place] [address] 11/14/2024 1:00 PM EDT Appointment [facility] [address] [place] [address] 11/15/2024 1:00 PM EDT Appointment [facility] 800 [place] [address] 11/16/2024 1:00 PM EDT Appointment [facility] [address] [place] [address] 11/17/2024 3:00 PM EDT Appointment [facility] 2 7[address] [place] [address] 11/18/2024 3:00 PM EDT Appointment [facility] 1 744 [place] [address] 11/19/2024 2:00 PM EDT Appointment [facility] 2 7[address] [place] [address] documented as of this encounter Visit Diagnoses Not on filedocumented in this encounter Additional Health Concerns Assessment Noted Time A fall risk assessment has been complete d for the patient 09/30/2024 9:33 AM EDT A Body Mass Index follow-up plan has been documented for the patient 05/28/2024 1:52 PM EST documented as of this encounter Care Teams Rubbish Collection Supervisor Relationship Specialty Start Date End Date Jevon Vazquez MD [address] [place] [address] #1 #1 Julien JOSEP [id number] PCP - General 03/23/22 documented as of this encounter
--- OUTSIDE RECORDS SUMMARY | 2024-11-05 09:04 | XMS_ITS ---
Author Organization [facility] Address [address] [place] [address] Care Team Providers Care Back End Architect Name Role Phone Jevon Vazquez MD Primary Care Provider [phone] Active Problems Problem Noted Date Diagnosed Date [...]
--- OUTSIDE RECORDS SUMMARY | 2024-11-05 09:04 | XMS_ITS | Encounter Summary ---
Author Organization Healthcare Address [address] [place] [address] Care Team Providers Care Grad Intern Name Role Phone Jevon Vazquez MD Primary Care Provider [phone] Encounter Details Date Type Department Care Team [...] Hematology/BMT and Cellular Therapy Program [address] [address] 11/13/2024 1:30 PM EDT Office Visit [facility] Hematology/BMT and Cellular Therapy Program [address] [address] Zonia Hoffman, RODDY 800 [facility] [address] [place] [address] 11/13/2024 3:00 PM EDT Appointment [facility] In[facility] 800 [place] [address] 11/14/2024 1:00 PM EDT Appointment [facility] [address] [place] [address] 11/15/2024 1:00 PM EDT Appointment [facility] [address] [place] [address] 11/16/2024 1:00 PM EDT Appointment [facility] [address] [place] [address] 11/17/2024 3:00 PM EDT Appointment [facility] 2 [address] [place] [address] 11/18/2024 3:00 PM EDT Appointment [facility] 1 [address] [place] [address] 11/19/2024 2:00 PM EDT Appointment [facility] 2 [address] [place] [address] documented as of this encounter Visit Diagnoses Not on filedocumented in this encounter Additional Health Concerns Assessment Noted Time A fall risk assessment has been complete d for the patient 09/30/2024 9:33 AM EDT A Body Mass Index follow-up plan has been documented for the patient 05/28/2024 1:52 PM EST documented as of this encounter Care Teams Grad Intern Relationship Specialty Start Date End Date Jevon Vazquez MD [address] [place] [address] #1 #1 Julien JOSEP [id number] PCP - General 03/23/22 documented as of this encounter
--- OUTSIDE RECORDS SUMMARY | 2024-11-05 09:04 | XMS_ITS | Encounter Summary ---
Author Organization Healthcare Address [address] [place] [address] Care Team Providers Care Director Of Front Office Name Role Phone Jevon Vazquez MD Primary Care Provider [phone] Encounter Details Date Type Department Care Team [...] Hematology/BMT and Cellular Therapy Program [address] [address] 11/13/2024 1:30 PM EDT Office Visit [facility] Hematology/BMT and Cellular Therapy Program [address] [address] Zonia Hoffman, RODDY 800 [facility] [address] [place] [address] 11/13/2024 3:00 PM EDT Appointment [facility] 800 [place] [address] 11/14/2024 1:00 PM EDT Appointment [facility] [address] [place] [address] 11/15/2024 1:00 PM EDT Appointment [facility] 800 [place] [address] 11/16/2024 1:00 PM EDT Appointment [facility] 800 [place] [address] 11/17/2024 3:00 PM EDT Appointment [facility] 2 744 [place] [address] 11/18/2024 3:00 PM EDT Appointment [facility] 1 744 [place] [address] 11/19/2024 2:00 PM EDT Appointment [facility] 2 744 [place] [address] documented as of this encounter Visit Diagnoses Not on filedocumented in this encounter Additional Health Concerns Assessment Noted Time A fall risk assessment has been complete d for the patient 07/30/2024 8:29 AM EDT A Body Mass Index follow-up plan has been documented for the patient 05/28/2024 1:52 PM EST documented as of this encounter Care Teams Director Of Front Office Relationship Specialty Start Date End Date Jevon Vazquez MD [address] [place] [address] #1 #1 Julien JOSEP [address] PCP - General 03/23/22 documented as of this encounter
--- OUTSIDE RECORDS SUMMARY | 2024-11-05 09:04 | XMS_ITS | Encounter Summary ---
Author Organization Healthcare Address [address] [place] [address] Care Team Providers Care Dehydrating Press Operator Name Role Phone Jevon Vazquez MD Primary Care Provider [phone] Encounter Details Date Type Department Care Team [...] Hematology/BMT and Cellular Therapy Program [address] [address] 11/13/2024 1:30 PM EDT Office Visit [facility] Hematology/BMT and Cellular Therapy Program [address] [address] Zonia Hoffman, RODDY 800 [facility] [address] [place] [address] 11/13/2024 3:00 PM EDT Appointment [facility] 800 [place] [address] 11/14/2024 1:00 PM EDT Appointment [facility] [address] [place] [address] 11/15/2024 1:00 PM EDT Appointment [facility] 800 [place] [address] 11/16/2024 1:00 PM EDT Appointment [facility] 800 [place] [address] 11/17/2024 3:00 PM EDT Appointment [facility] 2 744 [place] [address] 11/18/2024 3:00 PM EDT Appointment [facility] 1 744 [place] [address] 11/19/2024 2:00 PM EDT Appointment [facility] 2 [address] [place] [address] documented as of this encounter Visit Diagnoses Not on filedocumented in this encounter Additional Health Concerns Assessment Noted Time A fall risk assessment has been complete d for the patient 09/19/2024 8:38 AM EDT A Body Mass Index follow-up plan has been documented for the patient 05/28/2024 1:52 PM EST documented as of this encounter Care Teams Dehydrating Press Operator Relationship Specialty Start Date End Date Jevon Vazquez MD [address] [place] [address] #1 #1 Juilen JOSEP [address] PCP - General 03/23/22 documented as of this encounter
--- OUTSIDE RECORDS SUMMARY | 2024-11-05 09:04 | XMS_ITS | Encounter Summary ---
Author Organization Healthcare Address [address] [place] [address] Care Team Providers Care Cripple Cutter Name Role Phone Jevon Vazquez MD Primary Care Provider [phone] Encounter Details Date Type Department Care Team (Late Contact Info) Description 09/30/2024 Telephone [facility] Hematology/BMT and Cellular Therapy Program [address] [place] [address] Zoraida Good, RN [facility] Social History Tobacco [...] Hematology/BMT and Cellular Therapy Program [address] [place] [address] 11/13/2024 1:30 PM EDT Office Visit [facility] Hematology/BMT and Cellular Therapy Program [address] [address] Zonia Hoffman, DISTRICT COMMERCIAL SUPERINTENDENT 800 [facility] [address] [place] [address] 11/13/2024 3:00 PM EDT Appointment [facility] 800 [place] [address] 11/14/2024 1:00 PM EDT Appointment [facility] [address] [place] [address] 11/15/2024 1:00 PM EDT Appointment [facility] 800 [place] [address] 11/16/2024 1:00 PM EDT Appointment [facility] [address] [place] [address] 11/17/2024 3:00 PM EDT Appointment [facility] 2 [address] [place] [address] 11/18/2024 3:00 PM EDT Appointment [facility] 1 [address] [place] [address] 11/19/2024 2:00 PM EDT Appointment [facility] 2 [address] [place] [address] documented as of this encounter Visit Diagnoses Not on filedocumented in this encounter Additional Health Concerns Assessment Noted Time A fall risk assessment has been complete d for the patient 09/30/2024 9:33 AM EDT A Body Mass Index follow-up plan has been documented for the patient 05/28/2024 1:52 PM EST documented as of this encounter Care Teams Cripple Cutter Relationship Specialty Start Date End Date Jevon Vazquez MD [address] [place] [address] #1 #1 [place] [address] PCP - General 03/23/22 documented as of this encounter
--- OUTSIDE RECORDS SUMMARY | 2024-11-05 09:04 | XMS_ITS | Encounter Summary ---
Author Organization Healthcare Address [address] [place] [address] Care Team Providers Care Car Conditioner Name Role Phone Jevon Vazquez MD Primary Care Provider [phone] Encounter Details Date Type Department Care Team [...] Hematology/BMT and Cellular Therapy Program [address] [address] 11/13/2024 1:30 PM EDT Office Visit [facility] Hematology/BMT and Cellular Therapy Program [address] [address] Zonia Hoffman, RODDY 800 [facility] [address] [place] [address] 11/13/2024 3:00 PM EDT Appointment [facility] 800 [place] [address] 11/14/2024 1:00 PM EDT Appointment [facility] [address] [place] [address] 11/15/2024 1:00 PM EDT Appointment [facility] 800 [place] [address] 11/16/2024 1:00 PM EDT Appointment [facility] 800 [place] [address] 11/17/2024 3:00 PM EDT Appointment [facility] 2 744 [place] [address] 11/18/2024 3:00 PM EDT Appointment [facility] 1 744 [place] [address] 11/19/2024 2:00 PM EDT Appointment [facility] 2 744 [place] [address] documented as of this encounter Visit Diagnoses Not on filedocumented in this encounter Additional Health Concerns Assessment Noted Time A fall risk assessment has been complete d for the patient 09/30/2024 9:33 AM EDT A Body Mass Index follow-up plan has been documented for the patient 05/28/2024 1:52 PM EST documented as of this encounter Care Teams Car Conditioner Relationship Specialty Start Date End Date Jevon Vazquez MD [address] [place] [address] #1 #1 Julien JOSEP [address] PCP - General 03/23/22 documented as of this encounter
--- OUTSIDE RECORDS SUMMARY | 2024-11-05 09:04 | XMS_ITS | Encounter Summary ---
Author Organization Healthcare Address [address] [place] [address] Care Team Providers Care Supervisor Telephone Information Name Role Phone Jevon Vazquez MD Primary Care Provider [phone] Encounter Details Date Type Department Care Team [...] Hematology/BMT and Cellular Therapy Program [address] [address] 11/13/2024 1:30 PM EDT Office Visit [facility] Hematology/BMT and Cellular Therapy Program [address] [address] Zonia Hoffman, RODDY 800 [facility] [address] [place] [address] 11/13/2024 3:00 PM EDT Appointment [facility] [address] [place] [address] 11/14/2024 1:00 PM EDT Appointment [facility] [address] [place] [address] 11/15/2024 1:00 PM EDT Appointment [facility] [address] [place] [address] 11/16/2024 1:00 PM EDT Appointment [facility] [address] [place] [address] 11/17/2024 3:00 PM EDT Appointment [facility] 2 [address] [place] [address] 11/18/2024 3:00 PM EDT Appointment [facility] 1 [address] [place] [address] 11/19/2024 2:00 PM EDT Appointment [facility] 2 [address] [place] [address] documented as of this encounter Visit Diagnoses Not on filedocumented in this encounter Additional Health Concerns Assessment Noted Time A fall risk assessment has been complete d for the patient 07/30/2024 8:29 AM EDT A Body Mass Index follow-up plan has been documented for the patient 05/28/2024 1:52 PM EST documented as of this encounter Care Teams Supervisor Telephone Information Relationship Specialty Start Date End Date Jevon Vazquez MD [address] [place] [address] #1 #1 Julien JOSEP [id number] PCP - General 03/23/22 documented as of this encounter
--- OUTSIDE RECORDS SUMMARY | 2024-11-05 09:04 | XMS_ITS | Encounter Summary ---
Author Organization Healthcare Address [address] [place] [address] Care Team Providers Care Clerk To Justice Name Role Phone Jevon Vazquez MD Primary Care Provider [phone] Encounter Details Date Type Department Care Team [...] Hematology/BMT and Cellular Therapy Program [address] [address] 11/13/2024 1:30 PM EDT Office Visit [facility] Hematology/BMT and Cellular Therapy Program [address] [address] Zonia Hoffman, RODDY 800 [facility] [address] [place] [address] 11/13/2024 3:00 PM EDT Appointment [facility] 800 [place] [address] 11/14/2024 1:00 PM EDT Appointment [facility] [address] [place] [address] 11/15/2024 1:00 PM EDT Appointment [facility] 800 [place] [address] 11/16/2024 1:00 PM EDT Appointment [facility] [address] [place] [address] 11/17/2024 3:00 PM EDT Appointment [facility] 2 [address] [place] [address] 11/18/2024 3:00 PM EDT Appointment [facility] 1 [address] [place] [address] 11/19/2024 2:00 PM EDT Appointment [facility] 2 [address] [place] [address] documented as of this encounter Visit Diagnoses Not on filedocumented in this encounter Additional Health Concerns Assessment Noted Time A fall risk assessment has been complete d for the patient 09/30/2024 9:33 AM EDT A Body Mass Index follow-up plan has been documented for the patient 05/28/2024 1:52 PM EST documented as of this encounter Care Teams Clerk To Justice Relationship Specialty Start Date End Date Jevon Vazquez MD [address] [place] [address] #1 #1 Julien JOSEP [id number] PCP - General 03/23/22 documented as of this encounter
--- OUTSIDE RECORDS SUMMARY | 2024-11-05 09:04 | XMS_ITS | Encounter Summary ---
Author Organization [facility] Address [address] [place] [address] Care Team Providers Care Ssas Developer Name Role Phone Jevon Vazquez MD Primary Care Provider [phone] Reason for Visit * Reason Comments Med Refill Encounter Details Date Type Department Care Team ([facility] Contact Info) Description 10/14/2024 Refill [facility] Hematology/BMT and Cellular Therapy Program [address] [phone] New Mckinney MD 800 [facility] [address] [place] [address] Social History Tobacco Use Types Packs/Day Years [...] Hematology/BMT and Cellular Therapy Program [address] [address] 11/13/2024 1:30 PM EDT Office Visit [facility] Hematology/BMT and Cellular Therapy Program [address] [address] Zonia Hoffman, PAPER SORTER AND COUNTER 800 [facility] [address] [place] [address] 11/13/2024 3:00 PM EDT Appointment [facility] [address] [place] [address] 11/14/2024 1:00 PM EDT Appointment [facility] [address] [place] [address] 11/15/2024 1:00 PM EDT Appointment [facility] [address] [place] [address] 11/16/2024 1:00 PM EDT Appointment [facility] [address] [place] [address] 11/17/2024 3:00 PM EDT Appointment [facility] 2 [address] [place] [address] 11/18/2024 3:00 PM EDT Appointment [facility] 1 [address] [place] [address] 11/19/2024 2:00 PM EDT Appointment [facility] 2 [address] [place] [address] documented as of this encounter Visit Diagnoses Not on filedocumented in this encounter Additional Health Concerns Assessment Noted Time A fall risk assessment has been complete d for the patient 09/30/2024 9:33 AM EDT A Body Mass Index follow-up plan has been documented for the patient 05/28/2024 1:52 PM EST documented as of this encounter Care Teams Ssas Developer Relationship Specialty Start Date End Date Jevon Vazquez MD [address] [place] [address] #1 #1 JulineJOSEP [id number] PCP - General 03/23/22 documented as of this encounter
--- OUTSIDE RECORDS SUMMARY | 2024-11-05 09:04 | XMS_ITS | Encounter Summary ---
Author Organization Healthcare Address [address] [place] [address] Care Team Providers Care Wireless Engineer Name Role Phone Jevon Vazquez MD Primary Care Provider [phone] Encounter Details Date Type Department Care Team ([facility] st Contact Info) Description 10/27/2024 Telephone [facility] Hematology/BMT and Cellular Therapy Program [address] [address] Zonia Hoffman, ROLLER PRINTER 800 [facility] [address] [place] [address] Social History Tobacco Use Types Packs/Day Years [...] and her new appts will be on [facility]. She verbalizes understanding. * Telephone Encounter - [...] Hematology/BMT and Cellular Therapy Program [address] [address] 11/13/2024 1:30 PM EDT Office Visit PAV Hematology/BMT and Cellular Therapy Program [address] [address] Zonia Hoffman, ROLLER PRINTER 800 [facility] [address] [place] [address] 11/13/2024 3:00 PM EDT Appointment [facility] 800 [place] [address] 11/14/2024 1:00 PM EDT Appointment [facility] 800 [place] [address] 11/15/2024 1:00 PM EDT Appointment [facility] [address] [place] [address] 11/16/2024 1:00 PM EDT Appointment [facility] [address] [place] [address] 11/17/2024 3:00 PM EDT Appointment [facility] 2 [address] [place] [address] 11/18/2024 3:00 PM EDT Appointment [facility] 1 [address] [place] [address] 11/19/2024 2:00 PM EDT Appointment [facility] 2 [address] [place] [address] documented as of this encounter Visit Diagnoses Not on filedocumented in this encounter Additional Health Concerns Assessment Noted Time A fall risk assessment has been complete d for the patient 09/30/2024 9:33 AM EDT A Body Mass Index follow-up plan has been documented for the patient 05/28/2024 1:52 PM EST documented as of this encounter Care Teams Wireless Engineer Relationship Specialty Start Date End Date Jevon Vazquez MD [address] [place] [address] #1 #1 JOSEP [place] [id number] PCP - General 03/23/22 documented as of this encounter
--- OUTSIDE RECORDS SUMMARY | 2024-11-05 09:04 | XMS_ITS | Encounter Summary ---
Author Organization [facility] Address [address] [place] [address] Care Team Providers Care Maintenance Worker Name Role Phone Jevon Vazquez MD Primary Care Provider [phone] Reason for Visit * Reason Comments Med Refill Encounter Details Date Type Department Care Team ([facility] Contact Info) Description 01/30/2024 Refill [facility] Hematology/BMT and Cellular Therapy Program [address] [phone] New Mckinney MD 800 [facility] [address] [place] [address] Social History Tobacco Use Types Packs/Day Years [...] Upcoming Encounters Date Type Department Care Team ([facility] Contact Info) Description 11/13/2024 1:00 PM EDT Clinical Support [facility] Hematology/BMT and Cellular Therapy Program [address] [place] [address] 11/13/2024 1:30 PM EDT Office Visit [facility] Hematology/BMT and Cellular Therapy Program [address] [address] Zonia Hoffman, REFRIGERATION PLANT CORK INSULATOR 800 [facility] [address] [place] [address] 11/13/2024 3:00 PM EDT Appointment [facility] [address] [place] [address] 11/14/2024 1:00 PM EDT Appointment [facility] [address] [place] [address] 11/15/2024 1:00 PM EDT Appointment [facility] [address] [place] [address] 11/16/2024 1:00 PM EDT Appointment [facility] [address] [place] [address] 11/17/2024 3:00 PM EDT Appointment [facility] 2 [address] [place] [address] 11/18/2024 3:00 PM EDT Appointment [facility] 1 [address] [place] [address] 11/19/2024 2:00 PM EDT Appointment [facility] 2 [address] [place] [address] documented as of this encounter Visit Diagnoses Not on filedocumented in this encounter Additional Health Concerns Assessment Noted Time A fall risk assessment has been complete d for the patient 01/11/2024 9:16 AM EDT A Body Mass Index follow-up plan has been documented for the patient 01/21/2024 6:16 AM EDT documented as of this encounter Care Teams Maintenance Worker Relationship Specialty Start Date End Date Jevon Vazquez MD [address] [place] [address] #1 #1 [place] [id number] PCP - General 03/23/22 documented as of this encounter
--- OUTSIDE RECORDS SUMMARY | 2024-11-05 09:05 | XMS_ITS | Encounter Summary ---
Author Organization Healthcare Address [address] [place] [address] Care Team Providers Care Resident Services Supervisor Name Role Phone Jevon Vazquez MD Primary Care Provider [phone] Encounter Details Date Type Department Care Team [...] Hematology/BMT and Cellular Therapy Program [address] [address] 11/13/2024 1:30 PM EDT Office Visit [facility] Hematology/BMT and Cellular Therapy Program [address] [address] Zonia Hoffman, RODDY 800 [facility] [address] [place] [address] 11/13/2024 3:00 PM EDT Appointment [facility] 800 [place] [address] 11/14/2024 1:00 PM EDT Appointment [facility] [address] [place] [address] 11/15/2024 1:00 PM EDT Appointment [facility] [address] [place] [address] 11/16/2024 1:00 PM EDT Appointment [facility] [address] [place] [address] 11/17/2024 3:00 PM EDT Appointment [facility] 2 [address] [place] [address] 11/18/2024 3:00 PM EDT Appointment [facility] 1 [address] [place] [address] 11/19/2024 2:00 PM EDT Appointment [facility] 2 [address] [place] [address] documented as of this encounter Visit Diagnoses Not on filedocumented in this encounter Additional Health Concerns Assessment Noted Time A fall risk assessment has been complete d for the patient 09/19/2024 8:38 AM EDT A Body Mass Index follow-up plan has been documented for the patient 05/28/2024 1:52 PM EST documented as of this encounter Care Teams Resident Services Supervisor Relationship Specialty Start Date End Date Jevon Vazquez MD [address] [place] [address] #1 #1 Julien JOSEP [id number] PCP - General 03/23/22 documented as of this encounter
--- OUTSIDE RECORDS SUMMARY | 2024-11-05 09:05 | XMS_ITS | Encounter Summary ---
Author Organization Healthcare Address [address] [place] [address] Care Team Providers Care Artillery Maintenance Supervisor Name Role Phone Jevon Vazquez MD Primary Care Provider [phone] Encounter Details Date Type Department Care Team [...] Hematology/BMT and Cellular Therapy Program [address] [address] 11/13/2024 1:30 PM EDT Office Visit [facility] Hematology/BMT and Cellular Therapy Program [address] [address] Zonia Hoffman, RODDY 800 [facility] [address] [place] [address] 11/13/2024 3:00 PM EDT Appointment [facility] 800 [place] [address] 11/14/2024 1:00 PM EDT Appointment [facility] [address] [place] [address] 11/15/2024 1:00 PM EDT Appointment [facility] [address] [place] [address] 11/16/2024 1:00 PM EDT Appointment [facility] [address] [place] [address] 11/17/2024 3:00 PM EDT Appointment [facility] 2 [address] [place] [address] 11/18/2024 3:00 PM EDT Appointment [facility] 1 [address] [place] [address] 11/19/2024 2:00 PM EDT Appointment [facility] 2 [address] [place] [address] documented as of this encounter Visit Diagnoses Not on filedocumented in this encounter Additional Health Concerns Assessment Noted Time A fall risk assessment has been complete d for the patient 09/19/2024 8:38 AM EDT A Body Mass Index follow-up plan has been documented for the patient 05/28/2024 1:52 PM EST documented as of this encounter Care Teams Artillery Maintenance Supervisor Relationship Specialty Start Date End Date Jevon Vazquez MD [address] [place] [address] #1 #1 Julien JOSEP [id number] PCP - General 03/23/22 documented as of this encounter
--- OUTSIDE RECORDS SUMMARY | 2024-11-05 09:05 | XMS_ITS | Encounter Summary ---
Author Organization Healthcare Address [address] [place] [address] Care Team Providers Care Info Specialist Name Role Phone Jevon Vazquez MD Primary Care Provider [phone] Encounter Details Date Type Department Care Team ([facility] st Contact Info) Description 10/28/2024 Telephone [facility] Hematology/BMT and Cellular Therapy Program [address] [address] Zonia Hoffman, RN NIGHT 800 [facility] [address] [place] [address] Social History Tobacco Use Types Packs/Day Years [...] go over her labs results Callback number: [phone] documented in this encounter Plan of Treatment Upcoming Encounters Date Type Department Care Team (Late st Contact Info) Description 11/13/2024 1:00 PM EDT Clinical Support [facility] Hematology/BMT and Cellular Therapy Program [address] [address] 11/13/2024 1:30 PM EDT Office Visit PAV Hematology/BMT and Cellular Therapy Program [address] [address] Zonia Hoffman, RN NIGHT 800 [facility] [address] [place] [address] 11/13/2024 3:00 PM EDT Appointment [facility] Infusion 800 [place] [address] 11/14/2024 1:00 PM EDT Appointment [facility] [address] [place] [address] 11/15/2024 1:00 PM EDT Appointment [facility] [address] [place] [address] 11/16/2024 1:00 PM EDT Appointment [facility] [address] [place] [address] 11/17/2024 3:00 PM EDT Appointment [facility] 2 [address] [place] [address] 11/18/2024 3:00 PM EDT Appointment [facility] 1 [address] [place] [address] 11/19/2024 2:00 PM EDT Appointment [facility] 2 [address] [place] [address] documented as of this encounter Visit Diagnoses Not on filedocumented in this encounter Additional Health Concerns Assessment Noted Time A fall risk assessment has been complete d for the patient 09/30/2024 9:33 AM EDT A Body Mass Index follow-up plan has been documented for the patient 05/28/2024 1:52 PM EST documented as of this encounter Care Teams Info Specialist Relationship Specialty Start Date End Date Jevon Vazquez MD [address] [place] [address] #1 #1 JOSEP [place] [id number] PCP - General 03/23/22 documented as of this encounter
--- OUTSIDE RECORDS SUMMARY | 2024-11-05 09:05 | XMS_ITS | Encounter Summary ---
Author Organization Healthcare Address [address] [place] [address] Care Team Providers Care Stock Holder Name Role Phone Jevon Vazquez MD Primary Care Provider [phone] Encounter Details Date Type Department Care Team [...] Hematology/BMT and Cellular Therapy Program [address] [address] 11/13/2024 1:30 PM EDT Office Visit [facility] Hematology/BMT and Cellular Therapy Program [address] [address] Zonia Hoffman, RODDY 800 [facility] [address] [place] [address] 11/13/2024 3:00 PM EDT Appointment [facility] Infusion 800 [place] [address] 11/14/2024 1:00 PM EDT Appointment [facility] [address] [place] [address] 11/15/2024 1:00 PM EDT Appointment [facility] 800 [place] [address] 11/16/2024 1:00 PM EDT Appointment [facility] [address] [place] [address] 11/17/2024 3:00 PM EDT Appointment [facility] 2 [address] [place] [address] 11/18/2024 3:00 PM EDT Appointment [facility] 1 [address] [place] [address] 11/19/2024 2:00 PM EDT Appointment [facility] 2 [address] [place] [address] documented as of this encounter Visit Diagnoses Not on filedocumented in this encounter Additional Health Concerns Assessment Noted Time A fall risk assessment has been complete d for the patient 09/30/2024 9:33 AM EDT A Body Mass Index follow-up plan has been documented for the patient 05/28/2024 1:52 PM EST documented as of this encounter Care Teams Stock Holder Relationship Specialty Start Date End Date Jevon Vazquez MD [address] [place] [address] #1 #1 Julien JOSEP [id number] PCP - General 03/23/22 documented as of this encounter
--- OUTSIDE RECORDS SUMMARY | 2024-11-05 09:05 | XMS_ITS | Encounter Summary ---
Author Organization Healthcare Address [address] [place] [address] Care Team Providers Care Brine Well Operator Name Role Phone Jevon Vazquez MD Primary Care Provider [phone] Encounter Details Date Type Department Care Team [...] Hematology/BMT and Cellular Therapy Program [address] [address] 11/13/2024 1:30 PM EDT Office Visit [facility] Hematology/BMT and Cellular Therapy Program [address] [address] Zonia Hoffman, RODDY 800 [facility] [address] [place] [address] 11/13/2024 3:00 PM EDT Appointment [facility] Infusion 800 [place] [address] 11/14/2024 1:00 PM EDT Appointment [facility] [address] [place] [address] 11/15/2024 1:00 PM EDT Appointment [facility] 800 [place] [address] 11/16/2024 1:00 PM EDT Appointment [facility] 800 [place] [address] 11/17/2024 3:00 PM EDT Appointment [facility] 2 [address] [place] [address] 11/18/2024 3:00 PM EDT Appointment [facility] 1 [address] [place] [address] 11/19/2024 2:00 PM EDT Appointment [facility] 2 [address] [place] [address] documented as of this encounter Visit Diagnoses Not on filedocumented in this encounter Additional Health Concerns Assessment Noted Time A fall risk assessment has been complete d for the patient 09/30/2024 9:33 AM EDT A Body Mass Index follow-up plan has been documented for the patient 05/28/2024 1:52 PM EST documented as of this encounter Care Teams Brine Well Operator Relationship Specialty Start Date End Date Jevon Vazquez MD [address] [place] [address] #1 #1 Julien JOSEP [id number] PCP - General 03/23/22 documented as of this encounter
--- OUTSIDE RECORDS SUMMARY | 2024-11-05 09:05 | XMS_ITS | Encounter Summary ---
Author Organization [facility] Address [address] [place] [address] Care Team Providers Care Electronics Supervisor Name Role Phone Jevon Vazquez MD Primary Care Provider [phone] Reason for Visit * Reason Comments Med Refill Encounter Details Date Type Department Care Team ([facility] Contact Info) Description 10/15/2024 Refill [facility] CC Hematology/BMT and Cellular Therapy Program [address] [phone] New Mckinney MD 800 [facility] [address] [place] [address] Social History Tobacco Use Types Packs/Day Years [...] Hematology/BMT and Cellular Therapy Program [address] [address] 11/13/2024 1:30 PM EDT Office Visit [facility] CC Hematology/BMT and Cellular Therapy Program [address] [address] Zonia Hoffman, SALES EXECUTIVE 800 [facility] [address] [place] [address] 11/13/2024 3:00 PM EDT Appointment [facility] Infusion 800 [place] [address] 11/14/2024 1:00 PM EDT Appointment [facility] [address] [place] [address] 11/15/2024 1:00 PM EDT Appointment [facility] [address] [place] [address] 11/16/2024 1:00 PM EDT Appointment [facility] [address] [place] [address] 11/17/2024 3:00 PM EDT Appointment [facility] 2 [address] [place] [address] 11/18/2024 3:00 PM EDT Appointment [facility] 1 [address] [place] [address] 11/19/2024 2:00 PM EDT Appointment [facility] 2 [address] [place] [address] documented as of this encounter Visit Diagnoses Not on filedocumented in this encounter Additional Health Concerns Assessment Noted Time A fall risk assessment has been complete d for the patient 09/30/2024 9:33 AM EDT A Body Mass Index follow-up plan has been documented for the patient 05/28/2024 1:52 PM EST documented as of this encounter Care Teams Electronics Supervisor Relationship Specialty Start Date End Date Jevon Vazquez MD [address] [place] [address] #1 #1 JulienJOSEP [id number] PCP - General 03/23/22 documented as of this encounter
--- OUTSIDE RECORDS SUMMARY | 2024-11-05 09:05 | XMS_ITS | Encounter Summary ---
Author Organization Healthcare Address [address] [place] [address] Care Team Providers Care Plumbing Contractor Name Role Phone Jevon Vazquez MD Primary Care Provider [phone] Encounter Details Date Type Department Care Team [...] Hematology/BMT and Cellular Therapy Program [address] [address] 11/13/2024 1:30 PM EDT Office Visit [facility] Hematology/BMT and Cellular Therapy Program [address] [address] Zonia Hoffman, RODDY 800 [facility] [address] [place] [address] 11/13/2024 3:00 PM EDT Appointment [facility] Infusion 800 [place] [address] 11/14/2024 1:00 PM EDT Appointment [facility] [address] [place] [address] 11/15/2024 1:00 PM EDT Appointment [facility] [address] [place] [address] 11/16/2024 1:00 PM EDT Appointment [facility] [address] [place] [address] 11/17/2024 3:00 PM EDT Appointment [facility] 2 [address] [place] [address] 11/18/2024 3:00 PM EDT Appointment [facility] 1 [address] [place] [address] 11/19/2024 2:00 PM EDT Appointment [facility] 2 [address] [place] [address] documented as of this encounter Visit Diagnoses Not on filedocumented in this encounter Additional Health Concerns Assessment Noted Time A fall risk assessment has been complete d for the patient 09/19/2024 8:38 AM EDT A Body Mass Index follow-up plan has been documented for the patient 05/28/2024 1:52 PM EST documented as of this encounter Care Teams Plumbing Contractor Relationship Specialty Start Date End Date Jevon Vazquez MD [address] [place] [address] #1 #1 Julien JOSEP [id number] PCP - General 03/23/22 documented as of this encounter
--- OUTSIDE RECORDS SUMMARY | 2024-11-05 09:05 | XMS_ITS | Clinical Summary ---
Author Organization [facility] Address [address] 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); Immunosuppressed status (CMS/HCC) 10/28/2024 Telephone PAV Hematology/BMT and Cellular Therapy Program [address] [place] [address] Zonia Hoffman, SPRIGGER 10/27/2024 Telephone [facility] Hematology/BMT and Cellular Therapy Program [address] [place] [phone] Zonia Hoffman, SPRIGGER 10/27/2024 Travel 10/26/2024 Travel 10/24/2024 Travel 10/23/2024 Travel 10/22/2024 Travel 10/15/2024 Refill [facility] Hematology/BMT and Cellular Therapy Program [address] [place] [phone] New Mckinney MD 10/14/2024 Refill [facility] Hematology/BMT and Cellular Therapy Program [address] [place] [address] New Mckinney MD 10/13/2024 Telephone [facility] Hematology/BMT and Cellular Therapy Program [address] [place] [address] Zonia Hoffman, SPRIGGER 10/13/2024 Travel 10/12/2024 Travel 10/11/2024 Travel 10/09/2024 Travel 10/08/2024 Travel 10/08/2024 Orders Only [facility] Hematology/BMT and Cellular Therapy Program [address] [place] [address] 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, nail feeder 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) 10/07/2024 Travel 09/30/2024 9:30 AM EDT Office Visit [facility] Hematology/BMT and Cellular Therapy Program [address] [place] [address] Zonia Hoffman, SPRIGGER 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) 09/30/2024 9:00 AM EDT Clinical Support [facility] Hematology/BMT and Cellular Therapy Program [address] [place] [address] Kemp, Jyoti S 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) 09/30/2024 Telephone [facility] Hematology/BMT and Cellular Therapy Program 750 [facility], [address] [place] [address] [place] [phone] Zoraida Good, RN 09/30/2024 Travel 09/29/2024 Travel 09/28/2024 Travel 09/27/2024 Travel 09/26/2024 Travel 09/25/2024 Travel 09/24/2024 Travel 09/23/2024 Travel 09/19/2024 12:00 PM EDT Procedure Visit [facility] CC Hematology/BMT and Cellular Therapy Program 750 [facility], [address] [place] [phone] Lexi Ferraro, RODDY 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) 09/19/2024 9:30 AM EDT Clinical Support [facility] 800 [facility], [address]nd [place] [phone] 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) 09/19/2024 7:30 AM EDT Clinical Support [facility] Hematology/BMT and Cellular Therapy Program [address] [phone] 09/19/2024 Telephone [facility] Hematology/BMT and Cellular Therapy Program [address] [phone] Romana Richmond, RN 09/19/2024 Orders Only [facility] Hematology/BMT and Cellular Therapy Program [address] [phone] 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, RN 09/19/2024 Travel 09/15/2024 Telephone [facility] Hematology/BMT and Cellular Therapy Program [address] [phone] Zonia Hoffman APRN 09/15/2024 Travel 09/14/2024 Travel 09/13/2024 Travel 09/12/2024 Travel 09/12/2024 Refill [facility] Hematology/BMT and Cellular Therapy Program [address] [place] [address] New Mckinney MD 09/11/2024 Travel 09/10/2024 Travel 09/01/2024 Telephone [facility] Hematology/BMT and Cellular Therapy Program [address] [place] [phone] Zonia Hoffman, SPRIGGER 08/31/2024 Travel 08/30/2024 Travel 08/18/2024 Telephone [facility] Hematology/BMT and Cellular Therapy Program [address] [place] [address] [place] [address] Romana Gorman, SPRIGGER 08/17/2024 Travel 08/16/2024 Travel 08/15/2024 Travel 08/13/2024 [...] Upcoming Encounters Date Type Department Care Team ([facility] st Contact Info) Description 11/13/2024 1:00 PM EDT Clinical Support [facility] Hematology/BMT and Cellular Therapy Program [address] [address] 11/13/2024 1:30 PM EDT Office Visit PAV Hematology/BMT and Cellular Therapy Program [address] [address] Zonia Hoffman, SPRIGGER [address] [facility] [address] [place] [phone] 11/13/2024 3:00 PM EDT Appointment [facility] H Infusion [address] [place] [address] 11/14/2024 1:00 PM EDT Appointment [facility]fusion [address] [place] [address] 11/15/2024 1:00 PM EDT Appointment [facility] [address] [place] [address] 11/16/2024 1:00 PM EDT Appointment [facility] [address] [place] [address] 11/17/2024 3:00 PM EDT Appointment [facility] 2 [address] [place] [address] 11/18/2024 3:00 PM EDT Appointment [facility] 1 [address] [place] [address] 11/19/2024 2:00 PM EDT Appointment [facility] 2 [address] [place] [address] Health Maintenance Due Date Last Done Comments [...] UKY-Zoster Vaccines (1 of 2) 05/16/2023 03/21/2023 [id number] Vaccine ( season) 2023 02/18/2021, 07/10/2020, 06/12/2020 [...] this topic Medical Devices Implanted Type Area Visual Education Teacher Device Identifier Shelf Expiration Date Model / Serial / Lot Port Clearvue Power 8fr - [id number] Implanted:Qty: 1 on 01/21/2024 by Ness Sargent MD at [facility] Peripherial [id number] / / Procedures Procedure Name Priority Date/Time [...] ult [facility] [address] [place] [address] * (ABNORMAL) Comprehensive Metabolic Panel, Plasma (09/30/2024 9:11 AM EDT) [facility] Glucose, Plasma 135(H) 74 - 99 mg/dL [...] ult [facility] [address] [place] [address] * BIOPSY BONE MARROW (09/19/2024 12:00 PM [...] to surronding structures. Alternatives discussed: Delayed treatment Morehead protocol: Procedure explained and questions answered to [...] at the site and an 11 gauge Jayporeshidi needle was inserted into the right posterior [...] Platelet count (09/19/2024 10:04 AM EDT) Pathologist [facility] Platelet Count 61(L) 155 - 369 10*3/uL LAB HEMATOLOGY METHOD 09/19/2024 10:19 AM EDT [facility] Blood Blood sample taken from central line / Unknown (Port) Long-term Catheter / Unknown 09/19/2024 10:04 AM EDT 09/19/2024 10:18 AM EDT New Mckinney MD LAB BLOOD ORDERABLES Final Re sult [facility] [address] [place] [address] * Transfuse platelets, Irradiated (09/19/2024 10:02 AM EDT) Lexi Ferraro APRN BLOOD TRANSFUSION ORDERABL ES Final Result * Prepare Leukocyte Reduced Platelets (09/19/2024 9:08 AM EDT) Pathologist [facility] Product Code [id number] BLOO D BANK Dispense Status Transfused BLOOD BANK Blood Expiration Date [id number] BLOOD BANK Unit Number [id number] CH B LOOD BANK Product Blood Type 6200 BLOOD BANK Blood Type A+ BLOOD BANK Provider Not In System BLOOD BANK PRODUCT ORD ERABLES Final Result Performing Organization Address City/[facility] Co de Phone Number BLOOD BANK [address] [place] [address], * Myeloid Focused Panel, 50 gene (09/19/2024 7:29 AM EDT) Interpretation The following two (2) genes, TP53 and DNMT3A, with persistent variants have been detected in this bone marrow specimen. The variant, p.[id number], in TP53 gene and the variant, p.Gmb771mge, in the RUNX 1 gene are not detectable at current cutoff and coverage established in this lab. Gene: TP53 Mutation: c.814G>A; p.Eqj571Itg Allele Frequency (%): 37% (45% Dec 2023) ID: [id number] Gene: DNMT3A Mutation: c.1522delC; p.[id number] 3 Allele Frequency (%): 36% (48% Dec 2023) Additional Details on Mutation Identified: Gene Transcript Genome Chrom Coordinate RefVar DNMT3A [id number] Hg19 2 [id number] delC TP53 [id number] Hg19 17 [id number] G>A 09/29/2024 4:05 PM EDT [facility] Methodology The following 50 genes were [...] then sequenced on the Illumina NextSeq 2000 ([employer], [place]). A custom bioinformatics pipeline aligns [...] hematologic malignancies. 09/29/2024 4:05 PM EDT [facility] Disclaimer This test was developed and its performance characteristics determined by the Clinical Molecular and Genomic Pathology Laboratory at the [facility]. It has not been cleared or approved [...] laboratory testing. 09/29/2024 4:05 PM EDT [facility] Pathologist Signature Reviewed by: Corey Tejada 09/29/2024 4:05 PM EDT [facility] Bone Marrow Specimen from bone marrow obtained by aspiration / Unknown Non-blood Collection / Unknown 09/19/2024 7:29 AM EDT 09/19/2024 12:03 PM EDT us New Mckinney MD LAB MOLECULAR DIAGNOSTICS ORD ERABLES Final Result Performing Organization Address City/State/[facility] Co de Phone Number [facility] [address] [place] [address], * Chromosome Karyotype, Oncology (09/19/2024 7:29 AM [...] Band resolution: 450-525 09/24/2024 2:37 PM EDT [facility] Pathologist Signature Reviewed by: Corey Tejada 09/24/2024 2:37 PM EDT [facility] Bone Marrow Non-blood Collection / Unknown 09/19/2024 7:29 AM EDT 09/19/2024 12:35 PM EDT New Mckinney MD LAB CYTOGENETICS ORDERABLES F inal Result [facility] [address] [place] [address] * Leukemia/Lymphoma - Immunophenotyping by Flow Cytometry (09/19/2024 7:29 AM EDT) Clinical Indication AML 09/22/2024 10:29 AM EDT [facility] Flow Cytometry Interpretation A. BONE MARROW FOR FLOW CYTOMETRY: - MIXED MARROW ELEMENTS WITH NO EVIDENCE OF INCREASED BLASTS OR ABNORMAL LYMPHOID POPULATIONS, SEE COMMENT. 09/22/2024 10:29 AM EDT [facility] Comments CD45/side scatter [...] surface light chains 09/22/2024 10:29 AM EDT [facility] Disclaimer This test was developed and its performance characteristics determined by the Immuno-Molecular Pathology Laboratory at the [facility]. It has not been cleared or approved [...] on the report. 09/22/2024 10:29 AM EDT [facility] Pathologist Signature Reviewed by: Lisandra Epstein MD 09/22/2024 10:29 AM EDT [facility] MRD Indicated Test Not Indicated 12/2024 10:29 AM EDT [facility] Bone Marrow Specimen from bone marrow obtained by aspiration / Unknown Non-blood Collection / Unknown 09/19/2024 7:29 AM EDT 09/19/2024 12:13 PM EDT New Mckinney MD LAB FLOW CYTOMETRY ORDERABLES Final Result [facility] [address] [place] [address] * Bone marrow exam (09/19/2024 7:29 AM EDT) Case Report Bone Marrow Case: [id number] Authorizing Provider: New Mckinney MD Collected: 09/19/2024 0729 Ordering Location: [facility] Hematology/BMT and Received: 09/19/2024 1216 Cellular Therapy Program Pathologist: Lisandra Epstein MD Specimens: A) - Bone Marrow Aspirate, right B) - Bone Marrow Biopsy, right C) - Peripheral Blood for Bone Marrow 5 3:15 PM EDT [facility] Cytogenetics Report, Addendum Chromosome Analysis Result Giemsa-banded metaphase cells from unstimulated bone marrow cultures showed a 46,XX[20] chromosome pattern. Interpretation Normal female chromosome analysis. No clonal abnormalities were detected at current resolution. Clinical correlation is recommended. 5 3:15 PM EDT [facility] Addendum electronically signed by Lisandra Epstein MD on 09/24/2024 at 1630 EDT Addendum Interpretation The following two (2) genes, TP53 and DNMT3A, with persistent variants have been detected in this bone marrow specimen. The variant, p.[id number], in TP53 gene and the variant, p.Nfu996nca, in the RUNX 1 gene are not detectable at current cutoff and coverage established in this lab. Gene: TP53 Mutation: c.814G>A; p.Esy564Tti Allele Frequency (%): 37% (45% Dec 2023) ID: [id number] Gene: DNMT3A Mutation: c.1522delC; p.[id number] 43 Allele Frequency (%): 36% (48% Dec 2023) Additional Details on Mutation Identified: 3:15 PM EDT [facility] Addendum electronically signed by Lisandra Epstein MD on 09/30/2024 at 1515 EDT Final Diagnosis PERIPHERAL BLOOD AND BONE MARROW, RIGHT POSTERIOR ILIAC CREST, (ASPIRATE SMEAR, AND CORE BIOPSY): - HYPOCELLULAR BONE MARROW WITH MARKEDLY DECREASED MEGAKARYOCYTES; NO SIGNIFICANT DYSPOIESIS OR INCREASE IN BLASTS. 3:15 PM EDT [facility] at 1453 EDT Clinical Information AML 09/14 3:15 PM EDT [facility] [...] blasts are not seen. 3:15 PM EDT [facility] Bone Marrow Differential BONE MARROW DIFFERENTIAL: 200 cells Normal Patient Neutrophils 15-50 34 Metamyelocytes 4-19 3 Myelocytes 1-18 10 Promyelocytes 1-8 1 Blasts 0-2 1 Monocytes 0-5 4 Erythroid 16-38 22 Lymphocytes 3-24 13 Eosinophils 0-6 8 Basophils 0-2 0 Plasma cells 0-4 4 Other 3:[address] [facility] Bone Marrow Aspirate and Biopsy The [...] trabeculae are unremarkable. 3:[address] [facility] Special and Immunohistochemical Stains Special Stain: A1-1 Vazquez-Giemsa A1-2 Vazquez-Giemsa A1-3 Vazquez-Giemsa C1-1 Vazquez-Giemsa IHC: B1-2 CD34 All controls show appropriate reactivity. All immunohistochemis try, in situ hybridization, and histochemical tests were developed by and are performed at the [facility], [address] [place] [address]. All tests reported here, except those addressing [...] negativity on decalcified specimens. 3:[address] [facility] Flow Cytometry Interpretation MIXED MARROW ELEMENTS WITH NO EVIDENCE OF INCREASED BLASTS OR ABNORMAL LYMPHOID POPULATIONS ([id number]). 3:15 PM EDT [facility] CYTOGENETICS/MOLECULA R INTERPRETATION Correlation with cytogenetic/molec ular analysis is suggested. 3:15 PM EDT [facility] Gross Description B. RIGHT A single specimen is received in formalin labeled bone marrow biopsy right posterior iliac crest and consists of 2 piece(s) of red/white tissue measuring 2.1/0.3 cm in length 0.2 cm in diameter. The specimen is submitted in to Histology for decalcification and routine processing. Cold Time: <1m 3:15 PM EDT [facility] Note: A resident was involved in the service. I attest I examined the relevant preparations for the specimens and confirmed the diagnosis or interpretation. 3:15 PM EDT [facility] [...] ed Result - Final Performing Organization Address City/[facility]/ZIP Co de Phone Number [facility] [address] [place] [address] * Hepatitis C Antibody w/Reflex to HCV Quant PCR (01/07/2024 8:42 AM EDT) Hepatitis C Antibody Negative Negative 01/07/2024 10:13 AM EDT [facility] Blood Venous blood specimen / Unknown Venipuncture / Unknown 01/07/2024 8:42 AM EDT 01/07/2024 9:25 AM EDT New Mckinney MD LAB BLOOD ORDERABLES Final Re sult Performing Organization Address City/[facility]/ZIP Co de Phone Number [facility] [address] [place] [address] from Last 3 Months or Most Recently Relevant to Health Maintenance Insurance MEDICARE ANTH Care Teams Director Experimental Medicine Relationship Specialty Start Date End Date Jevon Vazquez MD [address] [place] [address] #1 #1 JulienJOSEP [id number] PCP - General 03/23/22
--- OUTSIDE RECORDS SUMMARY | 2024-11-05 09:05 | XMS_ITS | Clinical Summary ---
Author Organization [facility] Address [address] [place] [address] Phone Care Team Providers Care Magnetic Prospecting Supervisor Name Role Phone Jevon Vazquez MD Primary Care Provider [phone] Allergies Active Allergy Reactions Criticality Noted Date [...] L4-5 LAMINECTOMY; Surgeon: Ivan Bartholomew MD; Location: [facility]; Service: Spine Medical History Medical [...] 5.6 % 11/14/2022 2:57 PM EDT PREFERRED [employer], LAFAS[employer] Est. Avg Glucose 148 mg/dL 11/14/2022 2:57 PM EDT [employer], [facility] Blood VENOUS BLOOD / Unknown Venipuncture / Unknown 11/11/2022 3:46 PM EDT 11/11/2022 3:55 PM EDT Narrative [facility] [employer] [facility] - 11/14/2022 2:57 PM EDT REFERENCE RANGE: Normal: 4.0-5.6% Pre-diabetes: 5.7-6.4% Provisional diagnosis of diabetes: >6.4% Hgb F>10% and anything which shortens red cell survival, such as hemolytic anemia, or unstable hemoglobin variants such as HbSS, HbSC, or HbCC, will lower the HbA1c value associated with a given level of glycemic control. us Lexi Maloney DO CHEMISTRY ORDERABLES Final R esult [facility] [employer] [facility] [address] [facility] , [place] [address] * (ABNORMAL) BASIC METABOLIC PANEL (11/11/2022 3:46 PM EDT) Sodium 136 136 - 145 mmol/L 11/11/2022 4:11 PM EDT [facility] Potassium 3.8 3.5 - 5.0 mmol/L 11/11/2022 4:11 PM EDT [facility] Chloride 102 98 - 107 mmol/L 11/11/2022 4:11 PM EDT [facility] Total CO2 24 22 - 29 mmol/L 11/11/2022 4:11 PM EDT [facility] Anion Gap 10 7 - 16 mmol/L 11/11/2022 4:11 PM EDT [facility] Calcium 10.1 8.8 - 10.4 mg/dL 11/11/2022 4:11 PM EDT [facility] Glucose Lvl 147(H) 82 - 100 mg/dL 11/11/2022 4:11 PM EDT [facility] BUN 15 8 - 23 mg/dL 11/11/2022 4:11 PM EDT [facility] Creatinine 0.82 0.51 - 1.30 mg/dL 11/11/2022 4:11 PM EDT [facility] eGFR (CKD-EPIcr 2020) 76 >=60 mL/min/1.7 3 m2 11/11/2022 4:11 PM EDT [facility] Comment:Estimated GFR was ca lculated using the CKD-EPIcr (2020) equation refit without race. The equation is recommended by the National Kidney Foundation - [place] [employer] of Nephrology Task Force. Blood VENOUS BLOOD / Unknown Venipuncture / Unknown 11/11/2022 3:46 PM EDT 11/11/2022 3:54 PM EDT us Leona Hanna DO CHEMISTRY ORDERABLES Final Res ult [facility] [address] [place] [address] * DX BONE DENSITY AXIAL SKELETON (07/25/2022 9:14 AM EDT) Anatomical Region Laterality Modality Dexa Scan 07/25/2022 Narrative 07/25/2022 3:45 PM EDT Indication: The patient is a female age 65 or older who requires a bone density assessment. Study was performed on [employer] 5. Bone Density: Region BMD T-score Z-score [...] Most Recently Relevant to Health Maintenance [place] [place] [address] MEDICARE SUPPLEMENT MEDICARE [place] PART A AND B Member Subscriber Plan / Payer (Ef fective 2016-Present) Name:Ashly Hernández Member ID:[id number] Relation to Subscriber:Self Name:Ashly Hernández Subscriber ID:[id number] Payer ID:Not on file Group ID:Not on file Type:Not on file Address: [address] MEDICARE SUPPLEMENT MEDICARE [place] PART A & [place] [phone] MEDICARE [place] PART A AND B Member Subscriber Plan / Payer (Ef fective 2016-Present) Name:Ashly Hernández Member ID:[id number] Relation to Subscriber:Self Name:Ashly Hernández Subscriber ID:[id number] Payer ID:Not on file Group ID:Not on file Type:Not on file Address: [address] MEDICARE SUPPLEMENT [employer] MEDICARE [place] PART A AND B [address] MEDICARE SUPPLEMENT Advance Directives For more information, please contact: [phone] * Full Code (Latest Code Status on File) Date Activated Date Inactivated Comments 11/14/2022 6:53 PM 11/16/2022 7:37 PM * Full Code Date Activated Date Inactivated Comments 11/12/2022 5:17 AM 11/14/2022 6:47 PM Care Teams Magnetic Prospecting Supervisor Relationship Specialty Start Date End Date Jevon Vazquez MD [address] [place] [address] PCP - General Family Medicine 11/10/22
--- OUTSIDE RECORDS SUMMARY | 2024-11-05 09:05 | XMS_ITS | Encounter Summary ---
Author Organization Healthcare Address [address] [place] [address] Care Team Providers Care Trench Pipe Layer Name Role Phone Jevon Vazquez MD Primary Care Provider [phone] Encounter Details Date Type Department Care Team [...] Hematology/BMT and Cellular Therapy Program [address] [address] 11/13/2024 1:30 PM EDT Office Visit [facility] Hematology/BMT and Cellular Therapy Program [address] [address] Zonia Hoffman, RODDY 800 [facility] [address] [place] [address] 11/13/2024 3:00 PM EDT Appointment [facility] [address] [place] [address] 11/14/2024 1:00 PM EDT Appointment [facility] [address] [place] [address] 11/15/2024 1:00 PM EDT Appointment [facility] [address] [place] [address] 11/16/2024 1:00 PM EDT Appointment [facility] [address] [place] [address] 11/17/2024 3:00 PM EDT Appointment [facility] 2 [address] [place] [address] 11/18/2024 3:00 PM EDT Appointment [facility] 1 [address] [place] [address] 11/19/2024 2:00 PM EDT Appointment [facility] 2 [address] [place] [address] documented as of this encounter Visit Diagnoses Not on filedocumented in this encounter Additional Health Concerns Assessment Noted Time A fall risk assessment has been complete d for the patient 09/19/2024 8:38 AM EDT A Body Mass Index follow-up plan has been documented for the patient 05/28/2024 1:52 PM EST documented as of this encounter Care Teams Trench Pipe Layer Relationship Specialty Start Date End Date Jevon Vazquez MD [address] [place] [address] #1 #1 Julien JOSEP [id number] PCP - General 03/23/22 documented as of this encounter
--- OUTSIDE RECORDS SUMMARY | 2024-11-05 09:05 | XMS_ITS | Encounter Summary ---
Author Organization Healthcare Address [address] [place] [address] Care Team Providers Care Yarding And Folding Machine Operator Name Role Phone Jevon Vazquez MD Primary Care Provider [phone] Encounter Details Date Type Department Care Team [...] Hematology/BMT and Cellular Therapy Program [address] [address] 11/13/2024 1:30 PM EDT Office Visit [facility] Hematology/BMT and Cellular Therapy Program [address] [address] Zonia Hoffman, RODDY 800 [facility] [address] [place] [address] 11/13/2024 3:00 PM EDT Appointment [facility] [address] [place] [address] 11/14/2024 1:00 PM EDT Appointment [facility] [address] [place] [address] 11/15/2024 1:00 PM EDT Appointment [facility] [address] [place] [address] 11/16/2024 1:00 PM EDT Appointment [facility] [address] [place] [address] 11/17/2024 3:00 PM EDT Appointment [facility] 2 [address] [place] [address] 11/18/2024 3:00 PM EDT Appointment [facility] 1 [address] [place] [address] 11/19/2024 2:00 PM EDT Appointment [facility] 2 [address] [place] [address] documented as of this encounter Visit Diagnoses Not on filedocumented in this encounter Additional Health Concerns Assessment Noted Time A fall risk assessment has been complete d for the patient 09/30/2024 9:33 AM EDT A Body Mass Index follow-up plan has been documented for the patient 05/28/2024 1:52 PM EST documented as of this encounter Care Teams Yarding And Folding Machine Operator Relationship Specialty Start Date End Date Jevon Vazquez MD [address] [place] [address] #1 #1 Julien JOSEP [id number] PCP - General 03/23/22 documented as of this encounter
--- OUTSIDE RECORDS SUMMARY | 2024-11-05 09:05 | XMS_ITS | Encounter Summary ---
Author Organization Healthcare Address [address] [place] [address] Care Team Providers Care Swatch Folder Name Role Phone Jevon Vazquez MD Primary Care Provider [phone] Encounter Details Date Type Department Care Team ([facility] Contact Info) Description 10/08/2024 Orders Only [facility] Hematology/BMT and Cellular Therapy Program [address] [phone] 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, RN [facility] HEMATOLOGY PROGRAM CLINIC Acute myeloid leukemia [...] Date Type Department Care Team ([facility] Contact Info) Description 11/13/2024 1:00 PM EDT Clinical Support [facility] Hematology/BMT and Cellular Therapy Program [address] [phone] 11/13/2024 1:30 PM EDT Office Visit [facility] Hematology/BMT and Cellular Therapy Program [address] [phone] Zonia Hoffman, METAL BONDER 800 [facility] [address] [place] [address] 11/13/2024 3:00 PM EDT Appointment [facility] Infusion [address] [place] [address] 11/14/2024 1:00 PM EDT Appointment [facility] 800 [place] [address] 11/15/2024 1:00 PM EDT Appointment [facility] [address] [place] [address] 11/16/2024 1:00 PM EDT Appointment [facility] [address] [place] [address] 11/17/2024 3:00 PM EDT Appointment [facility] 2 [address] [place] [address] 11/18/2024 3:00 PM EDT Appointment [facility] 1 [address] [place] [address] 11/19/2024 2:00 PM EDT Appointment [facility] 2 [address] [place] [address] Scheduled Orders Name Type Priority Associated Diagnoses [...] documented as of this encounter Care Teams Swatch Folder Relationship Specialty Start Date End Date Jevon Vazquez MD [address] [place] [address] #1 #1 [place] [address] PCP - General 03/23/22 documented as of this encounter
[2024-11-05 09:21] LABS: Hematocrit 24.4 % (37.0-47.0); Hemoglobin 8.4 g/dL (12.2-16.2); Immature Granulocytes % 0 %; Mean Corpuscular HGB Conc 34.4 g/dL (31.8-35.4); Mean Corpuscular Hemoglobin 35.7 pg (27.0-31.2); Mean Corpuscular Volume 103.8 fl (81-99); Nucleated Red Blood Cells % 0 %; Red Blood Count 2.35 M/mm3 (4.20-5.40); Red Cell Distribution Width-SD 79.9 fL; White Blood Count 2.6 K/mm3 (4.8-10.8)
[2024-11-05 09:30] LABS: Alanine Aminotransferase 11 U/L (12-78); Albumin Level 3.3 g/dl (3.5-5.0); Albumin/Globulin Ratio 1.5 (1.1-1.8); Alkaline Phosphatase 44 U/L (38-126); Anion Gap 9.9 mEq/L (5-15); Aspartate Amino Transferase 32 U/L (14-36); Bilirubin,Total 0.5 mg/dl (0.2-1.3); Blood Urea Nitrogen 30 mg/dl (7-17); Calcium 9.5 mg/dl (8.4-10.2); Carbon Dioxide 24 mmol/L (22.0-30.0); Chloride 108 mmol/L (98-107); Creatinine,Serum 1.00 mg/dl (0.52-1.04); Estimated Glomerular Filt Rate 54 ml/min (>60); GFR (African American) 66 ML/MIN (>60); Globulin 2.2 g/dL (1.3-3.2); Glucose 124 mg/dl (74-100); Potassium 3.9 mmoL/L (3.5-5.1); Sodium 138 mmol/L (136-145); Total Protein,Serum 5.5 g/dl (6.3-8.2)
[2024-11-05] MEDS: SODIUM CHLORIDE 0.9% 10ML FLUSH SYRINGE 10 ML IV (09:36)
[2024-11-05 10:55] LABS: Platelet Count 15 K/mm3 (142-424)
== END 2024-11-05 09:40 | disposition home or self-care (01) ==
LOC: INF 09:00
PROVIDERS: PCP Family Medicine; Visit Provider Internal Medicine Medical Oncology
DX: C92.00 Acute myeloblastic leukemia, not having achieved remission (principal)
CPT/HCPCS: 36591; 80053; 85025; J1642

== ENCOUNTER 2024-11-07 08:57 | Outpatient (CLI) | payer MEDICARE, BC, SELFPAY ==
--- OUTSIDE RECORDS SUMMARY | 2024-09-19 07:30 | XMS_ITS | Encounter Summary ---
Author Organization [facility] Address [address] [place] [address] Care Team Providers Care Business Representative Name Role Phone Jevon Vazquez MD Primary Care Provider [phone] Reason for Visit * Reason Comments Nurse Visit Encounter Details Date Type Department Care Team ([facility] Contact Info) Description 09/19/2024 7:30 AM EDT Clinical Support [facility] Hematology/BMT and Cellular Therapy Program [address] [phone] Social History Tobacco Use Types Packs/Day Years [...] Upcoming Encounters Date Type Department Care Team ([facility] Contact Info) Description 11/13/2024 1:00 PM EDT Clinical Support [facility] Hematology/BMT and Cellular Therapy Program [address] [phone] 11/13/2024 1:30 PM EDT Office Visit [facility] Hematology/BMT and Cellular Therapy Program [address] [phone] Zonia Hoffman, DINING ROOM COORDINATOR 800 [facility] [address] [place] [address] 11/13/2024 3:00 PM EDT Appointment [facility] [address] [place] [address] 11/14/2024 1:00 PM EDT Appointment [facility] [address] [place] [address] 11/15/2024 1:00 PM EDT Appointment [facility] [address] [place] [address] 11/16/2024 1:00 PM EDT Appointment [facility] [address] [place] [address] 11/17/2024 3:00 PM EDT Appointment [facility] 2 [address] [place] [address] 11/18/2024 3:00 PM EDT Appointment [facility] 1 [address] [place] [address] 11/19/2024 2:00 PM EDT Appointment [facility] 2 [address] [place] [address] documented as of this encounter Visit Diagnoses Not on filedocumented in this encounter Additional Health Concerns Assessment Noted Time A fall risk assessment has been complete d for the patient 09/19/2024 8:38 AM EDT A Body Mass Index follow-up plan has been documented for the patient 05/28/2024 1:52 PM EST documented as of this encounter Care Teams Business Representative Relationship Specialty Start Date End Date Jevon Vazquez MD [address] [place] [address] [address] [place] [address] PCP - General 03/23/22 documented as of this encounter
--- OUTSIDE RECORDS SUMMARY | 2024-09-19 09:30 | XMS_ITS | Encounter Summary ---
Author Organization Healthcare Address [address] [place] [address] Care Team Providers Care Seasoner Name Role Phone Jevon Vazquez MD Primary Care Provider [phone] Reason for Visit * Reason Comments Follow-up Encounter Details Date Type Department Care Team (Latest Contact Info) Description 09/19/2024 9:30 AM EDT Clinical Support [facility] Cancer Acute Treatment Clinic [address] [place] [address] Acute myeloid leukemia not having achieved remission [...] Upcoming Encounters Date Type Department Care Team ([facility] st Contact Info) Description 11/13/2024 1:00 PM EDT Clinical Support [facility]ematology/BMT and Cellular Therapy Program [address] [place] [address] 11/13/2024 1:30 PM EDT Office Visit [facility] Hematology/BMT and Cellular Therapy Program [address] [place] [address] Zonia Hoffman, OUTSOLE FLEXER 800 [facility] [address] [place] [address] 11/13/2024 3:00 PM EDT Appointment [facility] Infusion [address] [place] [address] 11/14/2024 1:00 PM EDT Appointment [facility] [address] [place] [address] 11/15/2024 1:00 PM EDT Appointment [facility] [address] [place] [address] 11/16/2024 1:00 PM EDT Appointment [facility] [address] [place] [address] 11/17/2024 3:00 PM EDT Appointment [facility] Infusion Clinic [address] [place] [address] 11/18/2024 3:00 PM EDT Appointment [facility] Infusion Clinic 1 [address] [place] [address] 11/19/2024 2:00 PM EDT Appointment [facility] Infusion Clinic 2 [address] [place] [address] documented as of this encounter Procedures Procedure Name Priority Date/Time Associated Diagnosis Comments PLATELET COUNT, BLOOD STAT 09/19/2024 10:04 AM EDT PREPARE PLATELETS Routine 09/19/2024 9:0 8 AM EDT documented in this encounter Results * (ABNORMAL) Platelet count (09/19/2024 10:04 AM EDT) Platelet Count 61(L) 155 - 369 10*3/uL LAB HEMATOLOGY METHOD 09/19/2024 10:19 AM EDT [facility] Blood Blood sample taken from central line / Unknown (Port) Long-term Catheter / Unknown 09/19/2024 10:04 AM EDT 09/19/2024 10:18 AM EDT us New Mckinney MD LAB BLOOD ORDERABLES Final Re sult [facility] [address] [place] [address] * Transfuse platelets, Irradiated (09/19/2024 10:02 AM EDT) us Lexi Ferarro APRN BLOOD TRANSFUSION ORDERABL ES Final Result * Prepare Leukocyte Reduced Platelets (09/19/2024 9:08 AM EDT) Product Code [id number] CH BLOO D BANK Dispense Status Transfused BLOOD BANK Blood Expiration Date [id number] BLOOD BANK Unit Number [id number] CH B LOOD BANK Product Blood Type 6200 BLOOD BANK Blood Type A+ CH BLOOD BANK us Provider Not In System BLOOD BANK PRODUCT ORD ERABLES Final Result BLOOD BANK [address] documented in this encounter Visit [...] documented as of this encounter Care Teams Seasoner Relationship Specialty Start Date End Date Jevon Vazquez MD [address] [place] [address] #1 #1 [place] [id number] PCP - General 03/23/22 documented as of this encounter
--- OUTSIDE RECORDS SUMMARY | 2024-09-19 12:00 | XMS_ITS | Encounter Summary ---
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) Procedures Leukemia/Lymphoma - Immunophenotyping by Flow Cytometry New Mckinney MD 800 [facility] Cancer [address] [address] Phone: tel: fax: Referral ID Status Reason Start Date Expiration Date V isits Requested Visits Authorized [id number] Authorized 09/11/2024 03/13/2026 1 1 Encounter Details Date Type Department Care Team (Latest Contact Info) Description 09/19/2024 12:00 PM EDT Procedure Visit [facility] Hematology/BMT and Cellular Therapy Program [address] [address] Lexi Ferraro, RODDY 800 [facility] Cancer [address] [address] Acute myeloid leukemia not having [...] to surronding structures. Alternatives discussed: Delayed treatment [place] protocol: Procedure explained and questions answered to [...] Upcoming Encounters Date Type Department Care Team ([facility] st Contact Info) Description 11/13/2024 1:00 PM EDT Clinical Support [facility] Hematology/BMT and Cellular Therapy Program [address] [address] 11/13/2024 1:30 PM EDT Office Visit [facility] Hematology/BMT and Cellular Therapy Program [address] [address] Zonia Hoffman APRN 800 [facility] [address] [place] [address] 11/13/2024 3:00 PM EDT Appointment [facility] Infusion [address] [place] [address] 11/14/2024 1:00 PM EDT Appointment [facility] [address] [place] [address] 11/15/2024 1:00 PM EDT Appointment [facility] [address] [place] [address] 11/16/2024 1:00 PM EDT Appointment [facility] [address] [place] [address] 11/17/2024 3:00 PM EDT Appointment [facility] [address] [place] [address] 11/18/2024 3:00 PM EDT Appointment [facility] 1 [address] [place] [address] 11/19/2024 2:00 PM EDT Appointment [facility] [address] [place] [address] documented as of this encounter Procedures Procedure [...] to surronding structures. Alternatives discussed: Delayed treatment [place] protocol: Procedure explained and questions answered to [...] Specimen Adequacy Adequate 025 2:37 PM EDT [facility] Chromosome Analysis Result Giemsa-banded [...] Band resolution: 450-525 09/24/2024 2:37 PM EDT [facility] Pathologist Signature Reviewed by: Corey Tejada 09/24/2024 2:37 PM EDT [facility] Bone Marrow Non-blood Collection / Unknown 09/19/2024 7:29 AM EDT 09/19/2024 12:35 PM EDT us New Mckinney MD LAB CYTOGENETICS ORDERABLES F inal Result [facility] [address] [place] [address] * Myeloid Focused Panel, 50 gene (09/19/2024 7:29 AM EDT) Interpretation The following two (2) genes, TP53 and DNMT3A, with persistent variants have been detected in this bone marrow specimen. The variant, p.[id number], in TP53 gene and the variant, p.[id number], in the RUNX 1 gene are not detectable at current cutoff and coverage established in this lab. Gene: TP53 Mutation: c.814G>A; p.Nlg495Xlf Allele Frequency (%): 37% (45% Dec 2023) ID: [id number] Gene: DNMT3A Mutation: c.1522delC; p.[id number] 3 Allele Frequency (%): 36% (48% Dec 2023) Additional Details on Mutation Identified: Gene Transcript Genome Chrom Coordinate RefVar DNMT3A NM_022552.4 Hg19 2 [id number] delC TP53 NM_000546.5 Hg19 17 [id number] G>A 09/29/2024 4:05 PM EDT [facility] [...] then sequenced on the Illumina NextSeq 2000 ([employer] [place]). A custom bioinformatics pipeline aligns [...] of hematologic malignancies. 09/29/2024 4:05 PM T [facility] Disclaimer This test was developed and its performance characteristics determined by the Clinical Molecular and Genomic Pathology Laboratory at the [facility]. It has not been cleared [...] Reviewed by: Corey Tejada 09/29/2024 4:05 PM [facility] Bone Marrow Specimen from bone marrow obtained by aspiration / Unknown Non-blood Collection / Unknown 09/19/2024 7:29 AM EDT 09/19/2024 12:03 PM EDT us New Mckinney MD LAB MOLECULAR DIAGNOSTICS ORD ERABLES Final Result [facility] [address] [place] [address], * Leukemia/Lymphoma - Immunophenotyping by Flow Cytometry (09/19/2024 7:29 AM EDT) Clinical Indication AML 09/22/2024 10:29 AM EDT [facility] Flow Cytometry Interpretation A. BONE MARROW FOR FLOW CYTOMETRY: - MIXED MARROW ELEMENTS WITH NO EVIDENCE OF INCREASED BLASTS OR ABNORMAL LYMPHOID POPULATIONS, SEE COMMENT. 09/22/2024 10:29 AM EDT [facility] Comments CD45/side scatter analysis shows a [...] surface light chains 09/22/2024 10:29 AM EDT [facility] Disclaimer This test was developed and its performance characteristics determined by the Immuno-Molecular Pathology Laboratory at the [facility]. It has not been cleared [...] Final Result [facility] [address] [place] [address] * (ABNORMAL) CBC and differential (09/19/2024 7:29 [...] AM EDT [facility] Neutrophils Absolute 1.35(L) 1.60 - 6.10 10*3/uL LAB HEMATOLOGY METHOD 09/19/2024 9:13 AM EDT [facility] Lymphocytes Absolute 1.10(L) 1.20 - 3.90 10*3/uL LAB HEMATOLOGY METHOD 09/19/2024 9:13 AM EDT [facility] Monocytes Absolute 0.20(L) 0.30 - 0.90 10*3/uL LAB HEMATOLOGY METHOD 09/19/2024 9:13 AM EDT [facility] Eosinophils Absolute 0.03 0.00 - 0.50 10*3/uL LAB HEMATOLOGY METHOD 09/19/2024 9:13 AM EDT [facility] Basophils Absolute 0.01 0.00 - 0.10 10*3/uL LAB HEMATOLOGY METHOD 09/19/2024 9:13 AM EDT [facility] Immature Granulocytes Absolute 0.01 0.00 - 0.06 10*3/uL LAB HEMATOLOGY METHOD 09/19/2024 9:13 AM EDT [facility] Blood Blood sample taken from central line / Unknown (Port) Long-term Catheter / Unknown 09/19/2024 7:29 AM EDT 09/19/2024 8:08 AM EDT Narrative [facility] - 09/19/2024 9:13 AM EDT Therapeutic decision making should be based on absolute values, rather than percentages. us New Mckinney MD LAB BLOOD ORDERABLES Final Re sult [facility] [address] [place] [address] * Bone marrow exam (09/19/2024 7:29 AM EDT) Case Report Bone Marrow Case: [id number] Authorizing Provider: New Mckinney MD Collected: 09/19/2024 0729 Ordering Location: [facility] Hematology/BMT and Received: 09/19/2024 1216 Cellular [...] in this bone marrow specimen. The variant, p.Yrl168Slt, in TP53 gene and the variant, p.Erl176kch, in the RUNX 1 gene are not detectable at current cutoff and coverage established in this lab. Gene: TP53 Mutation: c.814G>A; p.Akk088Yaf Allele Frequency (%): 37% (45% Dec 2023) ID: [id number] Gene: DNMT3A Mutation: c.1522delC; p.Iqu558PkxjtMjn2 43 Allele Frequency (%): 36% (48% Dec [...] OR INCREASE IN BLASTS. 3:15 PM EDT [facility] at 1453 EDT Clinical Information AML 09/14 3:15 PM EDT [facility] [...] cells 0-4 4 Other 3:15 PM EDT [facility] [...] developed by and are performed at the [facility], [address] [place] [address]. All tests reported here, except those addressing [...] OF INCREASED BLASTS OR ABNORMAL LYMPHOID POPULATIONS ([id number]). 3:15 PM EDT [facility] CYTOGENETICS/MOLECULA R INTERPRETATION Correlation with cytogenetic/molec ular analysis is suggested. 3:15 PM T [facility] Gross Description B. 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
--- OUTSIDE RECORDS SUMMARY | 2024-09-30 09:00 | XMS_ITS | Encounter Summary ---
Author Organization Healthcare Address [address] [place] [address] Care Team Providers Care Promotional Advertising Assistant Name Role Phone Jevon Vazquez MD Primary Care Provider [phone] Reason for Visit * Reason Comments Labs Only Encounter Details Date Type Department Care Team ([facility] Contact Info) Description 09/30/2024 9:00 AM EDT Clinical Support [facility] Hematology/BMT and Cellular Therapy Program [address] [place] [phone] Jyoti Kemp Acute myeloid leukemia not having [...] Upcoming Encounters Date Type Department Care Team ([facility] Contact Info) Description 11/13/2024 1:00 PM EDT Clinical Support [facility] Hematology/BMT and Cellular Therapy Program [address] [phone] 11/13/2024 1:30 PM EDT Office Visit [facility] Hematology/BMT and Cellular Therapy Program [address] [phone] Zonia Hoffman, BIAS CUTTING MACHINE OPERATOR 800 [facility] [address] [place] [address] 11/13/2024 3:00 PM EDT Appointment [facility] [address] [place] [address] 11/14/2024 1:00 PM EDT Appointment [facility] [address] [place] [address] 11/15/2024 1:00 PM EDT Appointment [facility] [address] [place] [address] 11/16/2024 1:00 PM EDT Appointment [facility] [address] [place] [address] 11/17/2024 3:00 PM EDT Appointment [facility] 2 [address] [place] [address] 11/18/2024 3:00 PM EDT Appointment [facility] 1 [address] [place] [address] 11/19/2024 2:00 PM EDT Appointment [facility] 2 [address] [place] [address] documented as of this encounter Procedures Procedure [...] - 99 mg/dL 09/30/2024 10:20 AM EDT [facility] BUN, Plasma 21 8 - 23 mg/dL 09/30/2024 10:20 AM EDT [facility] Creatinine, Plasma 1.00 0.60 - 1.10 mg/dL 09/30/2024 10:20 AM EDT [facility] BUN/Creatinine Ratio 21 09/30/2024 10:20 AM EDT [facility] Sodium, Plasma 137 136 - 145 mmol/L 09/30/2024 10:20 AM EDT [facility] Potassium, Plasma 3.8 3.6 - 4.9 mmol/L 09/30/2024 10:20 AM EDT [facility] Chloride, Plasma 107 97 - 107 mmol/L 09/30/2024 10:20 AM EDT [facility] CO2, Plasma 22 22 - 29 mmol/L 09/30/2024 10:20 AM EDT [facility] Anion Gap 8 6 - 16 mmol/L 09/30/2024 10:20 AM EDT [facility] Total Calcium, Plasma 9.8 8.9 - 10.2 mg/dL 09/30/2024 10:20 AM EDT [facility] Total Protein 5.9(L) 6.3 - 7.9 g/dL 09/30/2024 10:20 AM EDT [facility] Albumin, Plasma 3.8 3.5 - 5.2 g/dL 09/30/2024 10:20 AM EDT [facility] AST, Plasma 28 10 - 35 U/L 09/30/2024 10:20 AM EDT [facility] ALT, Plasma 14 10 - 35 U/L 09/30/2024 10:20 AM EDT [facility] Alkaline Phosphatase, Plasma 34(L) 46 - 142 U/L 09/30/2024 10:20 AM EDT [facility] Total Bilirubin, Plasma 0.3 0.2 - 1.1 mg/dL 09/30/2024 10:20 AM EDT [facility] eGFRcr 59.6 mL/min/1.7 3m*2 09/30/2024 10:20 AM EDT [facility] Comment:Reported eGFRcr in m L/min/1.73m2 is based the CKD-EPI 2020 equation that does not use a race coefficient. Blood Venous blood specimen / Unknown (Port) Long-term Catheter / Unknown 09/30/2024 9:11 AM EDT 09/30/2024 9:50 AM EDT us Zonia Hardy Crystalsky BIAS CUTTING MACHINE OPERATOR LAB BLOOD ORDERABLES Final Res ult [facility] [address] [place] [address] * (ABNORMAL) CBC and Differential (09/30/2024 9:11 AM EDT) WBC Count 3.34(L) 3.70 - 10.30 10*3/uL LAB HEMATOLOGY METHOD 09/30/2024 11:07 AM EDT [facility] RBC Count 1.91(L) 3.90 - 5.20 10*6/uL LAB HEMATOLOGY METHOD 09/30/2024 11:07 AM EDT [facility] HGB 7.7(L) 11.2 - 15.7 g/dL LAB HEMATOLOGY METHOD 09/30/2024 11:07 AM EDT [facility] HCT 22.8(L) 34.0 - 45.0 % LAB HEMATOLOGY METHOD 09/30/2024 11:07 AM EDT [facility] Platelet Count 17(LL) 155 - 369 10*3/uL LAB HEMATOLOGY METHOD 09/30/2024 11:07 AM EDT [facility] MCV 119(H) 79 - 98 fL LAB HEMATOLOGY METHOD 09/30/2024 11:07 AM EDT [facility] MCH 40.3(H) 26.0 - 32.0 pg LAB HEMATOLOGY METHOD 09/30/2024 11:07 AM EDT [facility] MCHC 33.8 30.7 - 35.5 g/dL LAB HEMATOLOGY METHOD 09/30/2024 11:07 AM EDT [facility] RDW 18.7(H) 11.5 - 14.5 % LAB HEMATOLOGY METHOD 09/30/2024 11:07 AM EDT [facility] MPV 11.1 8.8 - 12.5 fL LAB HEMATOLOGY METHOD 09/30/2024 11:07 AM EDT [facility] nRBC 0.0 <=0.0 per 100 WBCs LAB HEMATOLOGY METHOD 09/30/2024 11:07 AM EDT [facility] Differential Type Automated LAB HEMATOLOGY METHOD 09/30/2024 11:07 AM EDT [facility] Neutrophils % 65 % LAB HEMATOLOGY METHOD 09/30/2024 11:07 AM EDT [facility] Lymphocytes % 26 % LAB HEMATOLOGY METHOD 09/30/2024 11:07 AM EDT [facility] Monocytes % 7 % LAB HEMATOLOGY METHOD 09/30/2024 11:07 AM EDT [facility] Eosinophils % 1 % LAB HEMATOLOGY METHOD 09/30/2024 11:07 AM EDT [facility] Basophils % 1 % LAB HEMATOLOGY METHOD 09/30/2024 11:07 AM EDT [facility] Immature Granulocytes % 0 % LAB HEMATOLOGY METHOD 09/30/2024 11:07 AM EDT [facility] Neutrophils Absolute 2.17 1.60 - 6.10 10*3/uL LAB HEMATOLOGY METHOD 09/30/2024 11:07 AM EDT [facility] Lymphocytes Absolute 0.87(L) 1.20 - 3.90 10*3/uL LAB HEMATOLOGY METHOD 09/30/2024 11:07 AM EDT [facility] Monocytes Absolute 0.24(L) 0.30 - 0.90 10*3/uL LAB HEMATOLOGY METHOD 09/30/2024 11:07 AM EDT [facility] Eosinophils Absolute 0.03 0.00 - 0.50 10*3/uL LAB HEMATOLOGY METHOD 09/30/2024 11:07 AM EDT [facility] Basophils Absolute 0.02 0.00 - 0.10 10*3/uL LAB HEMATOLOGY METHOD 09/30/2024 11:07 AM EDT [facility] Immature Granulocytes Absolute 0.01 0.00 - 0.06 10*3/uL LAB HEMATOLOGY METHOD 09/30/2024 11:07 AM EDT [facility] Blood Venous blood specimen / Unknown (Port) Long-term Catheter / Unknown 09/30/2024 9:11 AM EDT 09/30/2024 9:34 AM EDT [facility] - 09/30/2024 11:07 AM EDT Therapeutic decision making should be based on absolute values, rather than percentages. 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
--- OUTSIDE RECORDS SUMMARY | 2024-09-30 09:30 | XMS_ITS | Encounter Summary ---
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 female. Referring Physician: Zonia Hoffman, ACTIVITY LEADER 800 [facility] Cancer [address] [address] Primary Care Provider: Jevon Vazquez MD Chief [...] k/??L. 12/2023- seen by Dr. Manzano in [facility] for evaluation of anemia and lymphocytosis. 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 Next generation sequencing: Abnormal: TP53 (c.814G>A; p.[id number]) frequency 45%, DMNT3A (c.1522delC; p.[id number]) frequency 48%, RUNX1 (c.336_338delGCC; p.Smp038mya) frequency 35% Azacitidine + Venetoclax Cycle 1: [...] - Continue local lab checks MWF at [facility] Allogenic transplant planning. 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 However, given her older age > 70, she would benefit from a geriatric BMT program and will make referrals should she be interested. Expected pancytopenia related to chemotherapy/AML. Check CBC x 3 times/week at [facility] Labs reviewed today, Hgb 7.7 , [...] HOSPITAL HEMATOLOGY/BMT AND CELLULAR THERAPY PROGRAM 800 [facility] [phone] 40 minutes was spent on this encounter; [...] Upcoming Encounters Date Type Department Care Team ([facility] st Contact Info) Description 11/13/2024 1:00 PM EDT Clinical Support [facility] Hematology/BMT and Cellular Therapy Program 750 [facility], [address] [place] [address] [place] [address] 11/13/2024 1:30 PM EDT Office Visit [facility] Hematology/BMT and Cellular Therapy Program [address] [place] [address] Zonia Hoffman, ACTIVITY LEADER [address] [facility] [address] [place] [phone] 11/13/2024 3:00 PM EDT Appointment [facility] [address] [place] [address] 11/14/2024 1:00 PM EDT Appointment [facility] [address] [place] [address] 11/15/2024 1:00 PM EDT Appointment [facility] [address] [place] [address] 11/16/2024 1:00 PM EDT Appointment [facility] [address] [place] [address] 11/17/2024 3:00 PM EDT Appointment [facility] 2 [address] [place] [address] 11/18/2024 3:00 PM EDT Appointment [facility] 1 [address] [place] [address] 11/19/2024 2:00 PM EDT Appointment [facility] 2 [address] [place] [address] documented as of this encounter Results * (ABNORMAL) Comprehensive Metabolic Panel, Plasma (09/30/2024 9:11 AM EDT) [facility] Glucose, Plasma 135(H) 74 - 99 mg/dL 09/30/2024 10:20 AM EDT [facility] BUN, Plasma 21 8 - 23 mg/dL 09/30/2024 10:20 AM EDT [facility] Creatinine, Plasma 1.00 0.60 - 1.10 mg/dL 09/30/2024 10:20 AM EDT [facility] BUN/Creatinine Ratio 21 09/30/2024 10:20 AM EDT [facility] Sodium, Plasma 137 136 - 145 mmol/L 09/30/2024 10:20 AM EDT [facility] Potassium, Plasma 3.8 3.6 - 4.9 mmol/L 09/30/2024 10:20 AM EDT [facility] Chloride, Plasma 107 97 - 107 mmol/L 09/30/2024 10:20 AM EDT [facility] CO2, Plasma 22 22 - 29 mmol/L 09/30/2024 10:20 AM EDT [facility] Anion Gap 8 6 - 16 mmol/L 09/30/2024 10:20 AM EDT [facility] Total Calcium, Plasma 9.8 8.9 - 10.2 mg/dL 09/30/2024 10:20 AM EDT [facility] Total Protein 5.9(L) 6.3 - 7.9 g/dL 09/30/2024 10:20 AM EDT [facility] Albumin, Plasma 3.8 3.5 - 5.2 g/dL 09/30/2024 10:20 AM EDT [facility] AST, Plasma 28 10 - 35 U/L 09/30/2024 10:20 AM EDT [facility] ALT, Plasma 14 10 - 35 U/L 09/30/2024 10:20 AM EDT [facility] Alkaline Phosphatase, Plasma 34(L) 46 - 142 U/L 09/30/2024 10:20 AM EDT [facility] Total Bilirubin, Plasma 0.3 0.2 - 1.1 mg/dL 09/30/2024 10:20 AM EDT [facility] eGFRcr 59.6 mL/min/1.7 3m*2 09/30/2024 10:20 AM EDT [facility] Comment:Reported eGFRcr in m L/min/1.73m2 is based the CKD-EPI 2020 equation that does not use a race coefficient. Blood Venous blood specimen / Unknown (Port) Long-term Catheter / Unknown 09/30/2024 9:11 AM EDT 09/30/2024 9:50 AM EDT us Zonia Hoffman APRN LAB BLOOD ORDERABLES Final Res ult [facility] [address] [place] [address] * (ABNORMAL) CBC and Differential (09/30/2024 9:11 AM EDT) WBC Count 3.34(L) 3.70 - 10.30 10*3/uL LAB HEMATOLOGY METHOD 09/30/2024 11:07 AM EDT [facility] RBC Count 1.91(L) 3.90 - 5.20 10*6/uL LAB HEMATOLOGY METHOD 09/30/2024 11:07 AM EDT [facility] HGB 7.7(L) 11.2 - 15.7 g/dL LAB HEMATOLOGY METHOD 09/30/2024 11:07 AM EDT [facility] HCT 22.8(L) 34.0 - 45.0 % LAB HEMATOLOGY METHOD 09/30/2024 11:07 AM EDT [facility] Platelet Count 17(LL) 155 - 369 10*3/uL LAB HEMATOLOGY METHOD 09/30/2024 11:07 AM EDT [facility] MCV 119(H) 79 - 98 fL LAB HEMATOLOGY METHOD 09/30/2024 11:07 AM EDT [facility] MCH 40.3(H) 26.0 - 32.0 pg LAB HEMATOLOGY METHOD 09/30/2024 11:07 AM EDT [facility] MCHC 33.8 30.7 - 35.5 g/dL LAB HEMATOLOGY METHOD 09/30/2024 11:07 AM EDT [facility] RDW 18.7(H) 11.5 - 14.5 % LAB HEMATOLOGY METHOD 09/30/2024 11:07 AM EDT [facility] MPV 11.1 8.8 - 12.5 fL LAB HEMATOLOGY METHOD 09/30/2024 11:07 AM EDT [facility] nRBC 0.0 <=0.0 per 100 WBCs LAB HEMATOLOGY METHOD 09/30/2024 11:07 AM EDT [facility] Differential Type Automated LAB HEMATOLOGY METHOD 09/30/2024 11:07 AM EDT [facility] Neutrophils % 65 % LAB HEMATOLOGY METHOD 09/30/2024 11:07 AM EDT [facility] Lymphocytes % 26 % LAB HEMATOLOGY METHOD 09/30/2024 11:07 AM EDT [facility] Monocytes % 7 % LAB HEMATOLOGY METHOD 09/30/2024 11:07 AM EDT [facility] Eosinophils % 1 % LAB HEMATOLOGY METHOD 09/30/2024 11:07 AM EDT [facility] Basophils % 1 % LAB HEMATOLOGY METHOD 09/30/2024 11:07 AM EDT [facility] Immature Granulocytes % 0 % LAB HEMATOLOGY METHOD 09/30/2024 11:07 AM EDT [facility] Neutrophils Absolute 2.17 1.60 - 6.10 10*3/uL LAB HEMATOLOGY METHOD 09/30/2024 11:07 AM EDT [facility] Lymphocytes Absolute 0.87(L) 1.20 - 3.90 10*3/uL LAB HEMATOLOGY METHOD 09/30/2024 11:07 AM EDT [facility] Monocytes Absolute 0.24(L) 0.30 - 0.90 10*3/uL LAB HEMATOLOGY METHOD 09/30/2024 11:07 AM EDT [facility] Eosinophils Absolute 0.03 0.00 - 0.50 10*3/uL LAB HEMATOLOGY METHOD 09/30/2024 11:07 AM EDT [facility] Basophils Absolute 0.02 0.00 - 0.10 10*3/uL LAB HEMATOLOGY METHOD 09/30/2024 11:07 AM EDT [facility] Immature Granulocytes Absolute 0.01 0.00 - 0.06 10*3/uL LAB HEMATOLOGY METHOD 09/30/2024 11:07 AM EDT [facility] Blood Venous blood specimen / Unknown (Port) Long-term Catheter / Unknown 09/30/2024 9:11 AM EDT 09/30/2024 9:34 AM EDT Narrative [facility] - 09/30/2024 11:07 AM EDT Therapeutic decision making should be based on absolute values, rather than percentages. us Zonia Hoffman APRN LAB BLOOD ORDERABLES Final Res ult [facility] [address] [place] [address] documented in this encounter Visit Diagnoses Diagnosis [...] documented as of this encounter Care Teams Executive Vp Relationship Specialty Start Date End Date Jevon Vazquez MD [address] [place] [address] #1 #1 [place] [id number] PCP - General 03/23/22 documented as of this encounter
[2024-11-07] VITALS (10 sets, daily range): BP systolic 109–128; BP diastolic 41–75; PULSE 65–79; RESP 18–20; TEMP 36.6–36.8; O2SAT 99–100
--- OUTSIDE RECORDS SUMMARY | 2024-11-07 09:00 | XMS_ITS | Encounter Summary ---
Author Organization Healthcare Address [address] [place] [address] Care Team Providers Care Room Worker Name Role Phone Jevon Vazquez MD Primary Care Provider [phone] Encounter Details Date Type Department Care Team (Late Contact Info) Description 09/30/2024 Telephone [facility] Hematology/BMT and Cellular Therapy Program [address] [place] [address] Zoraida Good, RN [facility] HEMATOLOGY PROGRAM CLINIC Social History [...] Hematology/BMT and Cellular Therapy Program [address] [place] [address] 11/13/2024 1:30 PM EDT Office Visit [facility] Hematology/BMT and Cellular Therapy Program [address] [address] Zonia Hoffman, TELEPHONE SOLICITOR SUPERVISOR [address] [facility] [address] [place] [address] 11/13/2024 3:00 PM EDT Appointment [facility] Infusion [address] [place] [address] 11/14/2024 1:00 PM EDT Appointment [facility] [address] [place] [address] 11/15/2024 1:00 PM EDT Appointment [facility]fusion [address] [place] [address] 11/16/2024 1:00 PM EDT Appointment [facility] [address] [place] [address] 11/17/2024 3:00 PM EDT Appointment [facility] 2 [address] [place] [address] 11/18/2024 3:00 PM EDT Appointment [facility] 1 [address] [place] [address] 11/19/2024 2:00 PM EDT Appointment [facility] 2 [address] [place] [address] documented as of this encounter Visit Diagnoses Not on filedocumented in this encounter Additional Health Concerns Assessment Noted Time A fall risk assessment has been complete d for the patient 09/30/2024 9:33 AM EDT A Body Mass Index follow-up plan has been documented for the patient 05/28/2024 1:52 PM EST documented as of this encounter Care Teams Room Worker Relationship Specialty Start Date End Date Jevon Vazquez MD [address] [place] [address] #1 #1 [place] [address] PCP - General 03/23/22 documented as of this encounter
--- OUTSIDE RECORDS SUMMARY | 2024-11-07 09:00 | XMS_ITS | Encounter Summary ---
Author Organization [facility] Address [address] [place] [address] Care Team Providers Care Creasing And Cutting Press Feeder Name Role Phone Jevon Vazquez MD Primary Care Provider [phone] Reason for Visit * Reason Comments Med Refill Encounter Details Date Type Department Care Team ([facility] Contact Info) Description 09/12/2024 Refill [facility] Hematology/BMT and Cellular Therapy Program [address] [phone] New Mckinney MD 800 [facility] [address] [place] [phone] Social History Tobacco Use Types Packs/Day Years [...] Upcoming Encounters Date Type Department Care Team ([facility] Contact Info) Description 11/13/2024 1:00 PM EDT Clinical Support [facility] Hematology/BMT and Cellular Therapy Program [address] [phone] 11/13/2024 1:30 PM EDT Office Visit [facility] Hematology/BMT and Cellular Therapy Program [address] [address] Zonia Hoffman, BUSINESS SUPPORT COORDINATOR 800 [facility] [address] [place] [address] 11/13/2024 3:00 PM EDT Appointment [facility]fusion 800 [place] [address] 11/14/2024 1:00 PM EDT Appointment [facility]fusion 800 [place] [address] 11/15/2024 1:00 PM EDT Appointment [facility] 800 [place] [address] 11/16/2024 1:00 PM EDT Appointment [facility]fusion 800 [place] [address] 11/17/2024 3:00 PM EDT Appointment [facility] 2 [address] [place] [address] 11/18/2024 3:00 PM EDT Appointment [facility] 1 [address] [place] [address] 11/19/2024 2:00 PM EDT Appointment [facility] 2 [address] [place] [address] documented as of this encounter Visit Diagnoses Not on filedocumented in this encounter Additional Health Concerns Assessment Noted Time A fall risk assessment has been complete d for the patient 07/30/2024 8:29 AM EDT A Body Mass Index follow-up plan has been documented for the patient 05/28/2024 1:52 PM EST documented as of this encounter Care Teams Creasing And Cutting Press Feeder Relationship Specialty Start Date End Date Jevon Vazquez MD [address] [place] [address] #1 #1 [place] [address] PCP - General 03/23/22 documented as of this encounter
--- OUTSIDE RECORDS SUMMARY | 2024-11-07 09:00 | XMS_ITS | Encounter Summary ---
Author Organization [facility] Address [address] [place] [address] Care Team Providers Care Chucking Machine Set Up Operator Tool Name Role Phone Jevon Vazquez MD Primary Care Provider [phone] Encounter Details Date Type Department Care Team ([facility] Contact Info) Description 09/15/2024 Telephone [facility] Hematology/BMT and Cellular Therapy Program [address] [phone] Zonia Hoffman, LAWN CARE TECHNICIAN 800 [facility] [address] [place] [address] Social History Tobacco Use Types Packs/Day Years [...] Upcoming Encounters Date Type Department Care Team ([facility] Contact Info) Description 11/13/2024 1:00 PM EDT Clinical Support [facility] Hematology/BMT and Cellular Therapy Program [address] [phone] 11/13/2024 1:30 PM EDT Office Visit [facility] Hematology/BMT and Cellular Therapy Program [address] [phone] Zonia Hoffman, LAWN CARE TECHNICIAN 800 [facility] [address] [place] [address] 11/13/2024 3:00 PM EDT Appointment [facility]fusion 800 [place] [address] 11/14/2024 1:00 PM EDT Appointment [facility]fusion 800 [place] [address] 11/15/2024 1:00 PM EDT Appointment [facility]fusion [address] [place] [address] 11/16/2024 1:00 PM EDT Appointment [facility] [address] [place] [address] 11/17/2024 3:00 PM EDT Appointment [facility] 2 [address] [place] [address] 11/18/2024 3:00 PM EDT Appointment [facility] 1 [address] [place] [address] 11/19/2024 2:00 PM EDT Appointment [facility] 2 [address] [place] [address] documented as of this encounter Visit Diagnoses Not on filedocumented in this encounter Additional Health Concerns Assessment Noted Time A fall risk assessment has been complete d for the patient 07/30/2024 8:29 AM EDT A Body Mass Index follow-up plan has been documented for the patient 05/28/2024 1:52 PM EST documented as of this encounter Care Teams Chucking Machine Set Up Operator Tool Relationship Specialty Start Date End Date Jevon Vazquez MD [address] [place] [address] #1 #1 [place] [address] PCP - General 03/23/22 documented as of this encounter
--- OUTSIDE RECORDS SUMMARY | 2024-11-07 09:00 | XMS_ITS | Encounter Summary ---
Author Organization [facility] Address [address] [place] [address] Care Team Providers Care Lab Scientist Name Role Phone Jevon Vazquez MD Primary Care Provider [phone] Encounter Details Date Type Department Care Team ([facility] Contact Info) Description 09/19/2024 Telephone [facility] CC Hematology/BMT and Cellular Therapy Program [address] [place] [address] Romana Richmond RN [facility] Social History [...] Type Department Care Team ([facility] Contact Info) Description 11/13/2024 1:00 PM EDT Clinical Support [facility] CC Hematology/BMT and Cellular Therapy Program [address] [place] [address] 11/13/2024 1:30 PM EDT Office Visit [facility] CC Hematology/BMT and Cellular Therapy Program 750 [facility] [place] [address] Zonia Hoffman, CLERICAL CAR CHECKER 800 [facility] [address] [place] [address] 11/13/2024 3:00 PM EDT Appointment [facility] Infusion [address] [place] [address] 11/14/2024 1:00 PM EDT Appointment [facility]fusion [address] [place] [address] 11/15/2024 1:00 PM EDT Appointment [facility] Infusion [address] [place] [address] 11/16/2024 1:00 PM EDT Appointment [facility]fusion [address] [place] [address] 11/17/2024 3:00 PM EDT Appointment [facility] 2 [address] [place] [address] 11/18/2024 3:00 PM EDT Appointment [facility] 1 [address] [place] [address] 11/19/2024 2:00 PM EDT Appointment [facility] 2 [address] [place] [address] documented as of this encounter Visit Diagnoses Not on filedocumented in this encounter Additional Health Concerns Assessment Noted Time A fall risk assessment has been complete d for the patient 09/19/2024 8:38 AM EDT A Body Mass Index follow-up plan has been documented for the patient 05/28/2024 1:52 PM EST documented as of this encounter Care Teams Lab Scientist Relationship Specialty Start Date End Date Jevon Vazquez MD [address] [place] [address] #1 #1 [place] [id number] PCP - General 03/23/22 documented as of this encounter
--- OUTSIDE RECORDS SUMMARY | 2024-11-07 09:00 | XMS_ITS | Encounter Summary ---
Author Organization Healthcare Address [address] [place] [address] Care Team Providers Care Membership Sales Representative Name Role Phone Jevon Vazquez MD Primary Care Provider [phone] Encounter Details Date Type Department Care Team [...] Hematology/BMT and Cellular Therapy Program [address] [address] 11/13/2024 1:30 PM EDT Office Visit [facility] Hematology/BMT and Cellular Therapy Program [address] [address] Zonia Hoffman, RODDY 800 [facility] [address] [place] [address] 11/13/2024 3:00 PM EDT Appointment [facility] Infusion 800 [place] [address] 11/14/2024 1:00 PM EDT Appointment [facility]fusion [address] [place] [address] 11/15/2024 1:00 PM EDT Appointment [facility] Infusion [address] [place] [address] 11/16/2024 1:00 PM EDT Appointment [facility]fusion [address] [place] [address] 11/17/2024 3:00 PM EDT Appointment [facility] 2 [address] [place] [address] 11/18/2024 3:00 PM EDT Appointment [facility] 1 [address] [place] [address] 11/19/2024 2:00 PM EDT Appointment [facility] 2 [address] [place] [address] documented as of this encounter Visit Diagnoses Not on filedocumented in this encounter Additional Health Concerns Assessment Noted Time A fall risk assessment has been complete d for the patient 07/30/2024 8:29 AM EDT A Body Mass Index follow-up plan has been documented for the patient 05/28/2024 1:52 PM EST documented as of this encounter Care Teams Membership Sales Representative Relationship Specialty Start Date End Date Jevon Vazquez MD [address] [place] [address] #1 #1 [place] JOSE[place] [id number] PCP - General 03/23/22 documented as of this encounter
--- OUTSIDE RECORDS SUMMARY | 2024-11-07 09:00 | XMS_ITS | Encounter Summary ---
Author Organization Healthcare Address [address] [place] [address] Care Team Providers Care Last Model Department Supervisor Name Role Phone Jevon Vazquez MD Primary Care Provider [phone] Encounter Details Date Type Department Care Team ([facility] Contact Info) Description 09/19/2024 Orders Only [facility] CC Hematology/BMT and Cellular Therapy Program [address] [phone] 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, RN [facility] HEMATOLOGY PROGRAM CLINIC Social History [...] Team ([facility] Contact Info) Description 11/13/2024 1:00 PM EDT Clinical Support [facility] Hematology/BMT and Cellular Therapy Program [address] [phone] 11/13/2024 1:30 PM EDT Office Visit [facility] Hematology/BMT and Cellular Therapy Program [address] [phone] Zonia Hoffman, ADVERTISING STRATEGIST 800 [facility] [address] [place] [address] 11/13/2024 3:00 PM EDT Appointment [facility] Infusion 800 [place] [address] 11/14/2024 1:00 PM EDT Appointment [facility] Infusion [address] [place] [address] 11/15/2024 1:00 PM EDT Appointment [facility] Infusion [address] [place] [address] 11/16/2024 1:00 PM EDT Appointment [facility] Infusion [address] [place] [address] 11/17/2024 3:00 PM EDT Appointment [facility] 2 [address] [place] [address] 11/18/2024 3:00 PM EDT Appointment [facility] 1 [address] [place] [address] 11/19/2024 2:00 PM EDT Appointment [facility] 2 [address] [place] [address] documented as of this encounter Visit Diagnoses Not on filedocumented in this encounter Additional Health Concerns Assessment Noted Time A fall risk assessment has been complete d for the patient 09/19/2024 8:38 AM EDT A Body Mass Index follow-up plan has been documented for the patient 05/28/2024 1:52 PM EST documented as of this encounter Care Teams Last Model Department Supervisor Relationship Specialty Start Date End Date Jevon Vazquez MD [address] [place] [address] #1 #1 [place] [address] PCP - General 03/23/22 documented as of this encounter
--- OUTSIDE RECORDS SUMMARY | 2024-11-07 09:00 | XMS_ITS | Encounter Summary ---
Author Organization [facility] Address [address] [place] [address] Care Team Providers Care Wireline Operator Name Role Phone Jevon Vazquez MD Primary Care Provider [phone] Reason for Visit * Reason Comments Med Refill Encounter Details Date Type Department Care Team ([facility] Contact Info) Description 01/30/2024 Refill [facility] CC Hematology/BMT and Cellular Therapy Program [address] [phone] New Mckinney MD 800 [facility] [address] [place] [phone] Social History Tobacco Use Types Packs/Day Years [...] Team ([facility] Contact Info) Description 11/13/2024 1:00 PM EDT Clinical Support [facility] CC Hematology/BMT and Cellular Therapy Program [address] [place] [address] 11/13/2024 1:30 PM EDT Office Visit [facility] CC Hematology/BMT and Cellular Therapy Program [address] [phone] Zonia Hoffman, STATEMENT CLERKS SUPERVISOR 800 [facility] [address] [place] [address] 11/13/2024 3:00 PM EDT Appointment [facility] Infusion 800 [place] [address] 11/14/2024 1:00 PM EDT Appointment [facility]fusion [address] [place] [address] 11/15/2024 1:00 PM EDT Appointment [facility]fusion [address] [place] [address] 11/16/2024 1:00 PM EDT Appointment [facility]fusion [address] [place] [address] 11/17/2024 3:00 PM EDT Appointment [facility] 2 [address] [place] [address] 11/18/2024 3:00 PM EDT Appointment [facility] 1 [address] [place] [address] 11/19/2024 2:00 PM EDT Appointment [facility] 2 [address] [place] [address] documented as of this encounter Visit Diagnoses Not on filedocumented in this encounter Additional Health Concerns Assessment Noted Time A fall risk assessment has been complete d for the patient 01/11/2024 9:16 AM EDT A Body Mass Index follow-up plan has been documented for the patient 01/21/2024 6:16 AM EDT documented as of this encounter Care Teams Wireline Operator Relationship Specialty Start Date End Date Jevon Vazquez MD [address] [place] [address] #1 #1 [place] [id number] PCP - General 03/23/22 documented as of this encounter
--- OUTSIDE RECORDS SUMMARY | 2024-11-07 09:00 | XMS_ITS | Encounter Summary ---
Author Organization Healthcare Address [address] [place] [address] Care Team Providers Care Library Director Name Role Phone Jevon Vazquez MD Primary Care Provider [phone] Encounter Details Date Type Department Care Team [...] Hematology/BMT and Cellular Therapy Program [address] [address] 11/13/2024 1:30 PM EDT Office Visit [facility] Hematology/BMT and Cellular Therapy Program [address] [address] Zonia Hoffman, RODDY 800 [facility] [address] [place] [address] 11/13/2024 3:00 PM EDT Appointment [facility] Infusion 800 [place] [address] 11/14/2024 1:00 PM EDT Appointment [facility]fusion [address] [place] [address] 11/15/2024 1:00 PM EDT Appointment [facility] Infusion 800 [place] [address] 11/16/2024 1:00 PM EDT Appointment [facility]fusion [address] [place] [address] 11/17/2024 3:00 PM EDT Appointment [facility] 2 [address] [place] [address] 11/18/2024 3:00 PM EDT Appointment [facility] 1 [address] [place] [address] 11/19/2024 2:00 PM EDT Appointment [facility] 2 [address] [place] [address] documented as of this encounter Visit Diagnoses Not on filedocumented in this encounter Additional Health Concerns Assessment Noted Time A fall risk assessment has been complete d for the patient 07/30/2024 8:29 AM EDT A Body Mass Index follow-up plan has been documented for the patient 05/28/2024 1:52 PM EST documented as of this encounter Care Teams Library Director Relationship Specialty Start Date End Date Jevon Vazquez MD [address] [place] [address] #1 #1 [place] JOSEP [address] PCP - General 03/23/22 documented as of this encounter
--- OUTSIDE RECORDS SUMMARY | 2024-11-07 09:00 | XMS_ITS | Encounter Summary ---
Author Organization Healthcare Address [address] [place] [address] Care Team Providers Care Pass Worker Name Role Phone Jevon Vazquez MD Primary Care Provider [phone] Encounter Details Date Type Department Care Team [...] Hematology/BMT and Cellular Therapy Program [address] [address] 11/13/2024 1:30 PM EDT Office Visit [facility] Hematology/BMT and Cellular Therapy Program [address] [address] Zonia Hoffman, RODDY 800 [facility] [address] [place] [address] 11/13/2024 3:00 PM EDT Appointment [facility] Infusion 800 [place] [address] 11/14/2024 1:00 PM EDT Appointment [facility] Infusion [address] [place] [address] 11/15/2024 1:00 PM EDT Appointment [facility] Infusion [address] [place] [address] 11/16/2024 1:00 PM EDT Appointment [facility] Infusion [address] [place] [address] 11/17/2024 3:00 PM EDT Appointment [facility] 2 [address] [place] [address] 11/18/2024 3:00 PM EDT Appointment [facility] 1 [address] [place] [address] 11/19/2024 2:00 PM EDT Appointment [facility] 2 [address] [place] [address] documented as of this encounter Visit Diagnoses Not on filedocumented in this encounter Additional Health Concerns Assessment Noted Time A fall risk assessment has been complete d for the patient 09/30/2024 9:33 AM EDT A Body Mass Index follow-up plan has been documented for the patient 05/28/2024 1:52 PM EST documented as of this encounter Care Teams Pass Worker Relationship Specialty Start Date End Date Jevon Vazquez MD [address] [place] [address] #1 #1 [place] JOSEP [address] PCP - General 03/23/22 documented as of this encounter
--- OUTSIDE RECORDS SUMMARY | 2024-11-07 09:00 | XMS_ITS | Encounter Summary ---
Author Organization Healthcare Address [address] [place] [address] Care Team Providers Care Shipping And Receiving Coordinator Name Role Phone Jevon Vazquez MD Primary Care Provider [phone] Encounter Details Date Type Department Care Team [...] Hematology/BMT and Cellular Therapy Program [address] [address] 11/13/2024 1:30 PM EDT Office Visit [facility] Hematology/BMT and Cellular Therapy Program [address] [address] Zonia Hoffman, RODDY 800 [facility] [address] [place] [address] 11/13/2024 3:00 PM EDT Appointment [facility] Infusion 800 [place] [address] 11/14/2024 1:00 PM EDT Appointment [facility]fusion [address] [place] [address] 11/15/2024 1:00 PM EDT Appointment [facility] Infusion 800 [place] [address] 11/16/2024 1:00 PM EDT Appointment [facility]fusion [address] [place] [address] 11/17/2024 3:00 PM EDT Appointment [facility] 2 [address] [place] [address] 11/18/2024 3:00 PM EDT Appointment [facility] 1 [address] [place] [address] 11/19/2024 2:00 PM EDT Appointment [facility] 2 [address] [place] [address] documented as of this encounter Visit Diagnoses Not on filedocumented in this encounter Additional Health Concerns Assessment Noted Time A fall risk assessment has been complete d for the patient 09/19/2024 8:38 AM EDT A Body Mass Index follow-up plan has been documented for the patient 05/28/2024 1:52 PM EST documented as of this encounter Care Teams Shipping And Receiving Coordinator Relationship Specialty Start Date End Date Jevon Vazquez MD [address] [place] [address] #1 #1 [place] JOSEP [address] PCP - General 03/23/22 documented as of this encounter
--- OUTSIDE RECORDS SUMMARY | 2024-11-07 09:00 | XMS_ITS ---
Author Organization [facility] Address [address] [place] [address] Care Team Providers Care Health Assistant Name Role Phone Jevon Vazquez MD Primary Care Provider [phone] Active Problems Problem Noted Date Diagnosed Date [...]
--- OUTSIDE RECORDS SUMMARY | 2024-11-07 09:00 | XMS_ITS | Encounter Summary ---
Author Organization Healthcare Address [address] [place] [address] Care Team Providers Care Certified Pedorthotist Name Role Phone Jevon Vazquez MD Primary [...] Hematology/BMT and Cellular Therapy Program [address] [address] 11/13/2024 1:30 PM EDT Office Visit [facility] Hematology/BMT and Cellular Therapy Program [address] [address] Zonia Hoffman, RODDY 800 [facility] [address] [place] [address] 11/13/2024 3:00 PM EDT Appointment [facility] 800 [place] [address] 11/14/2024 1:00 PM EDT Appointment [facility] [address] [place] [address] 11/15/2024 1:00 PM EDT Appointment [facility] [address] [place] [address] 11/16/2024 1:00 PM EDT Appointment [facility] [address] [place] [address] 11/17/2024 3:00 PM EDT Appointment [facility] 2 [address] [place] [address] 11/18/2024 3:00 PM EDT Appointment [facility] 1 [address] [place] [address] 11/19/2024 2:00 PM EDT Appointment [facility] 2 [address] [place] [address] documented as of this encounter Visit Diagnoses Not on filedocumented in this encounter Additional Health Concerns Assessment Noted Time A fall risk assessment has been complete d for the patient 09/30/2024 9:33 AM EDT A Body Mass Index follow-up plan has been documented for the patient 05/28/2024 1:52 PM EST documented as of this encounter Care Teams Certified Pedorthotist Relationship Specialty Start Date End Date Jevon Vazquez MD [address] [place] [address] #1 #1 Julien JOSEP [id number] PCP - General 03/23/22 documented as of this encounter
--- OUTSIDE RECORDS SUMMARY | 2024-11-07 09:00 | XMS_ITS | Encounter Summary ---
Author Organization Healthcare Address [address] [place] [address] Care Team Providers Care Grain Elevator Agent Name Role Phone Jevon Vazquez MD Primary Care Provider [phone] Encounter Details Date Type Department Care Team [...] Hematology/BMT and Cellular Therapy Program [address] [address] 11/13/2024 1:30 PM EDT Office Visit [facility] Hematology/BMT and Cellular Therapy Program [address] [address] Zonia Hoffman, RODDY 800 [facility] [address] [place] [address] 11/13/2024 3:00 PM EDT Appointment [facility] 800 [place] [address] 11/14/2024 1:00 PM EDT Appointment [facility] [address] [place] [address] 11/15/2024 1:00 PM EDT Appointment [facility] 800 [place] [address] 11/16/2024 1:00 PM EDT Appointment [facility] [address] [place] [address] 11/17/2024 3:00 PM EDT Appointment [facility] 2 [address] [place] [address] 11/18/2024 3:00 PM EDT Appointment [facility] 1 [address] [place] [address] 11/19/2024 2:00 PM EDT Appointment [facility] 2 [address] [place] [address] documented as of this encounter Visit Diagnoses Not on filedocumented in this encounter Additional Health Concerns Assessment Noted Time A fall risk assessment has been complete d for the patient 09/19/2024 8:38 AM EDT A Body Mass Index follow-up plan has been documented for the patient 05/28/2024 1:52 PM EST documented as of this encounter Care Teams Grain Elevator Agent Relationship Specialty Start Date End Date Jevon Vazquez MD [address] [place] [address] #1 #1 Julien JOSEP [id number] PCP - General 03/23/22 documented as of this encounter
--- OUTSIDE RECORDS SUMMARY | 2024-11-07 09:00 | XMS_ITS | Encounter Summary ---
Author Organization Healthcare Address [address] [place] [address] Care Team Providers Care Electric Installer Name Role Phone Jevon Vazquez MD Primary Care Provider [phone] Encounter Details Date Type Department Care Team [...] Hematology/BMT and Cellular Therapy Program [address] [address] 11/13/2024 1:30 PM EDT Office Visit [facility] Hematology/BMT and Cellular Therapy Program [address] [address] Zonai Hoffman, RODDY 800 [facility] [address] [place] [address] 11/13/2024 3:00 PM EDT Appointment [facility] 800 [place] [address] 11/14/2024 1:00 PM EDT Appointment [facility] [address] [place] [address] 11/15/2024 1:00 PM EDT Appointment [facility] 800 [place] [address] 11/16/2024 1:00 PM EDT Appointment [facility] 800 [place] [address] 11/17/2024 3:00 PM EDT Appointment [facility] 2 [address] [place] [address] 11/18/2024 3:00 PM EDT Appointment [facility] 1 [address] [place] [address] 11/19/2024 2:00 PM EDT Appointment [facility] 2 [address] [place] [address] documented as of this encounter Visit Diagnoses Not on filedocumented in this encounter Additional Health Concerns Assessment Noted Time A fall risk assessment has been complete d for the patient 09/30/2024 9:33 AM EDT A Body Mass Index follow-up plan has been documented for the patient 05/28/2024 1:52 PM EST documented as of this encounter Care Teams Electric Installer Relationship Specialty Start Date End Date Jevon Vazquez MD [address] [place] [address] #1 #1 Julien JOSEP [id number] PCP - General 03/23/22 documented as of this encounter
--- OUTSIDE RECORDS SUMMARY | 2024-11-07 09:00 | XMS_ITS | Encounter Summary ---
Author Organization Healthcare Address [address] [place] [address] Care Team Providers Care Supervisor Game Farm Name Role Phone Jevon Vazquez MD Primary Care Provider [phone] Encounter Details Date Type Department Care Team [...] Hematology/BMT and Cellular Therapy Program [address] [address] 11/13/2024 1:30 PM EDT Office Visit [facility] Hematology/BMT and Cellular Therapy Program [address] [address] Zonia Hoffman, RODDY 800 [facility] [address] [place] [address] 11/13/2024 3:00 PM EDT Appointment [facility] 800 [place] [address] 11/14/2024 1:00 PM EDT Appointment [facility] [address] [place] [address] 11/15/2024 1:00 PM EDT Appointment [facility] 800 [place] [address] 11/16/2024 1:00 PM EDT Appointment [facility] [address] [place] [address] 11/17/2024 3:00 PM EDT Appointment [facility] 2 [address] [place] [address] 11/18/2024 3:00 PM EDT Appointment [facility] 1 [address] [place] [address] 11/19/2024 2:00 PM EDT Appointment [facility] 2 [address] [place] [address] documented as of this encounter Visit Diagnoses Not on filedocumented in this encounter Additional Health Concerns Assessment Noted Time A fall risk assessment has been complete d for the patient 07/30/2024 8:29 AM EDT A Body Mass Index follow-up plan has been documented for the patient 05/28/2024 1:52 PM EST documented as of this encounter Care Teams Supervisor Game Farm Relationship Specialty Start Date End Date Jevon Vazquez MD [address] [place] [address] #1 #1 Julien JOSEP [id number] PCP - General 03/23/22 documented as of this encounter
--- OUTSIDE RECORDS SUMMARY | 2024-11-07 09:00 | XMS_ITS | Encounter Summary ---
Author Organization Healthcare Address [address] [place] [address] Care Team Providers Care Security Shift Manager Name Role Phone Jevon Vazquez MD Primary Care Provider [phone] Encounter Details Date Type Department Care Team [...] Hematology/BMT and Cellular Therapy Program [address] [address] 11/13/2024 1:30 PM EDT Office Visit [facility] Hematology/BMT and Cellular Therapy Program [address] [address] Zonia Hoffman, RODDY 800 [facility] [address] [place] [address] 11/13/2024 3:00 PM EDT Appointment [facility] 800 [place] [address] 11/14/2024 1:00 PM EDT Appointment [facility] [address] [place] [address] 11/15/2024 1:00 PM EDT Appointment [facility] 800 [place] [address] 11/16/2024 1:00 PM EDT Appointment [facility] 800 [place] [address] 11/17/2024 3:00 PM EDT Appointment [facility] 2 [address] [place] [address] 11/18/2024 3:00 PM EDT Appointment [facility] 1 [address] [place] [address] 11/19/2024 2:00 PM EDT Appointment [facility] 2 [address] [place] [address] documented as of this encounter Visit Diagnoses Not on filedocumented in this encounter Additional Health Concerns Assessment Noted Time A fall risk assessment has been complete d for the patient 07/30/2024 8:29 AM EDT A Body Mass Index follow-up plan has been documented for the patient 05/28/2024 1:52 PM EST documented as of this encounter Care Teams Security Shift Manager Relationship Specialty Start Date End Date Jevon Vazquez MD [address] [place] [address] #1 #1 Julien JOSEP [id number] PCP - General 03/23/22 documented as of this encounter
--- OUTSIDE RECORDS SUMMARY | 2024-11-07 09:00 | XMS_ITS | Encounter Summary ---
Author Organization Healthcare Address [address] [place] [address] Care Team Providers Care Carrot Tier Name Role Phone Jevon Vazquez MD Primary Care Provider [phone] Encounter Details Date Type Department Care Team [...] Hematology/BMT and Cellular Therapy Program [address] [address] 11/13/2024 1:30 PM EDT Office Visit [facility] Hematology/BMT and Cellular Therapy Program [address] [address] Zonia Hoffman, RODDY 800 [facility] [address] [place] [address] 11/13/2024 3:00 PM EDT Appointment [facility] 800 [place] [address] 11/14/2024 1:00 PM EDT Appointment [facility] [address] [place] [address] 11/15/2024 1:00 PM EDT Appointment [facility] [address] [place] [address] 11/16/2024 1:00 PM EDT Appointment [facility] [address] [place] [address] 11/17/2024 3:00 PM EDT Appointment [facility] 2 [address] [place] [address] 11/18/2024 3:00 PM EDT Appointment [facility] 1 [address] [place] [address] 11/19/2024 2:00 PM EDT Appointment [facility] 2 [address] [place] [address] documented as of this encounter Visit Diagnoses Not on filedocumented in this encounter Additional Health Concerns Assessment Noted Time A fall risk assessment has been complete d for the patient 07/30/2024 8:29 AM EDT A Body Mass Index follow-up plan has been documented for the patient 05/28/2024 1:52 PM EST documented as of this encounter Care Teams Carrot Tier Relationship Specialty Start Date End Date Jevon Vazquez MD [address] [place] [address] #1 #1 Julien JOSEP [id number] PCP - General 03/23/22 documented as of this encounter
--- OUTSIDE RECORDS SUMMARY | 2024-11-07 09:00 | XMS_ITS | Encounter Summary ---
Author Organization Healthcare Address [address] [place] [address] Care Team Providers Care Quality Measurement Specialist Name Role Phone Jevon Vazquez MD Primary Care Provider [phone] Encounter Details Date Type Department Care Team [...] Hematology/BMT and Cellular Therapy Program [address] [address] 11/13/2024 1:30 PM EDT Office Visit [facility] Hematology/BMT and Cellular Therapy Program [address] [address] Zonia Hoffman, RODDY 800 [facility] [address] [place] [address] 11/13/2024 3:00 PM EDT Appointment [facility] 800 [place] [address] 11/14/2024 1:00 PM EDT Appointment [facility] [address] [place] [address] 11/15/2024 1:00 PM EDT Appointment [facility] 800 [place] [address] 11/16/2024 1:00 PM EDT Appointment [facility] [address] [place] [address] 11/17/2024 3:00 PM EDT Appointment [facility] 2 [address] [place] [address] 11/18/2024 3:00 PM EDT Appointment [facility] 1 [address] [place] [address] 11/19/2024 2:00 PM EDT Appointment [facility] 2 [address] [place] [address] documented as of this encounter Visit Diagnoses Not on filedocumented in this encounter Additional Health Concerns Assessment Noted Time A fall risk assessment has been complete d for the patient 07/30/2024 8:29 AM EDT A Body Mass Index follow-up plan has been documented for the patient 05/28/2024 1:52 PM EST documented as of this encounter Care Teams Quality Measurement Specialist Relationship Specialty Start Date End Date Jevon Vazquez MD [address] [place] [address] #1 #1 Julien JOSEP [id number] PCP - General 03/23/22 documented as of this encounter
--- OUTSIDE RECORDS SUMMARY | 2024-11-07 09:00 | XMS_ITS | Encounter Summary ---
Author Organization [facility] Address [address] [place] [address] Care Team Providers Care Creative Specialist Name Role Phone Jevon Vazquez MD Primary Care Provider [phone] Encounter Details Date Type Department Care Team ([facility] Contact Info) Description 10/29/2024 Refill [facility] Hematology/BMT and Cellular Therapy Program [address] [address] Zonia Hoffman, RAG CUTTING MACHINE FEEDER 800 [facility] [address] [place] [address] Acute myeloid leukemia not having achieved remission [...] Encounters Date Type Department Care Team ([facility] Contact Info) Description 11/13/2024 1:00 PM EDT Clinical Support [facility] Hematology/BMT and Cellular Therapy Program [address] [address] 11/13/2024 1:30 PM EDT Office Visit [facility] Hematology/BMT and Cellular Therapy Program [address] [place] [address] Zonia Hoffman, RAG CUTTING MACHINE FEEDER 800 [facility] [address] [place] [address] 11/13/2024 3:00 PM EDT Appointment [facility] 800 [place] [address] 11/14/2024 1:00 PM EDT Appointment [facility] 800 [place] [address] 11/15/2024 1:00 PM EDT Appointment [facility] 800 [place] [address] 11/16/2024 1:00 PM EDT Appointment [facility] 800 [place] [address] 11/17/2024 3:00 PM EDT Appointment [facility] 2 [address] [place] [address] 11/18/2024 3:00 PM EDT Appointment [facility] 1 [address] [place] [address] 11/19/2024 2:00 PM EDT Appointment [facility] 2 [address] [place] [address] documented as of this encounter Visit Diagnoses [...] Date End Date Jevon Vazquez MD [address] [place] [address] #1 #1 JOSEP [place] [id number] PCP - General 03/23/22 documented as of this encounter
--- OUTSIDE RECORDS SUMMARY | 2024-11-07 09:01 | XMS_ITS | Encounter Summary ---
Author Organization Healthcare Address [address] [place] [address] Care Team Providers Care Executive Producer Promos Name Role Phone Jevon Vazquez MD Primary Care Provider [phone] Encounter Details Date Type Department Care Team [...] Hematology/BMT and Cellular Therapy Program [address] [address] 11/13/2024 1:30 PM EDT Office Visit [facility] Hematology/BMT and Cellular Therapy Program [address] [address] Zonia Hoffman, RODDY 800 [facility] [address] [place] [address] 11/13/2024 3:00 PM EDT Appointment [facility]fusion 800 [place] [address] 11/14/2024 1:00 PM EDT Appointment [facility] [address] [place] [address] 11/15/2024 1:00 PM EDT Appointment [facility] 800 [place] [address] 11/16/2024 1:00 PM EDT Appointment [facility] [address] [place] [address] 11/17/2024 3:00 PM EDT Appointment [facility] 2 [address] [place] [address] 11/18/2024 3:00 PM EDT Appointment [facility] 1 [address] [place] [address] 11/19/2024 2:00 PM EDT Appointment [facility] 2 [address] [place] [address] documented as of this encounter Visit Diagnoses [...] Date End Date Jevon Vazquez MD [address] [place] [address] #1 #1 Julien JOSEP [id number] PCP - General 03/23/22 documented as of this encounter
--- OUTSIDE RECORDS SUMMARY | 2024-11-07 09:01 | XMS_ITS | Encounter Summary ---
Author Organization Healthcare Address [address] [place] [address] Care Team Providers Care Transfer Controller Name Role Phone Jevon Vazquez MD Primary Care Provider [phone] Encounter Details Date Type Department Care Team [...] Hematology/BMT and Cellular Therapy Program [address] [address] 11/13/2024 1:30 PM EDT Office Visit [facility] Hematology/BMT and Cellular Therapy Program [address] [address] Zonia Hoffman, RODDY 800 [facility] [address] [place] [address] 11/13/2024 3:00 PM EDT Appointment [facility] 800 [place] [address] 11/14/2024 1:00 PM EDT Appointment [facility] [address] [place] [address] 11/15/2024 1:00 PM EDT Appointment [facility] 800 [place] [address] 11/16/2024 1:00 PM EDT Appointment [facility] [address] [place] [address] 11/17/2024 3:00 PM EDT Appointment [facility] 2 [address] [place] [address] 11/18/2024 3:00 PM EDT Appointment [facility] 1 [address] [place] [address] 11/19/2024 2:00 PM EDT Appointment [facility] 2 [address] [place] [address] documented as of this encounter Visit Diagnoses Not on filedocumented in this encounter Additional Health Concerns Assessment Noted Time A fall risk assessment has been complete d for the patient 09/19/2024 8:38 AM EDT A Body Mass Index follow-up plan has been documented for the patient 05/28/2024 1:52 PM EST documented as of this encounter Care Teams Transfer Controller Relationship Specialty Start Date End Date Jevon Vazquez MD [address] [place] [address] #1 #1 Julien JOSEP [id number] PCP - General 03/23/22 documented as of this encounter
--- OUTSIDE RECORDS SUMMARY | 2024-11-07 09:01 | XMS_ITS | Encounter Summary ---
Author Organization [facility] Address [address] [place] [address] Care Team Providers Care Assistant Manager/Embalmer Name Role Phone Jevon Vazquez MD Primary Care Provider [phone] Reason for Visit * Reason Comments Med Refill Encounter Details Date Type Department Care Team ([facility] Contact Info) Description 10/15/2024 Refill [facility] Hematology/BMT and Cellular Therapy Program [address] [phone] [place] MD 800 [facility] [address] [place] [phone] Social History Tobacco Use Types Packs/Day Years [...] Team ([facility] Contact Info) Description 11/13/2024 1:00 PM EDT Clinical Support [facility] Hematology/BMT and Cellular Therapy Program [address] [address] 11/13/2024 1:30 PM EDT Office Visit [facility] Hematology/BMT and Cellular Therapy Program [address] [address] Zonia Hoffman, VEHICLE MAINTENANCE SUPERVISOR 800 [facility] [address] [place] [address] 11/13/2024 3:00 PM EDT Appointment [facility] 800 [place] [address] 11/14/2024 1:00 PM EDT Appointment [facility] 800 [place] [address] 11/15/2024 1:00 PM EDT Appointment [facility] [address] [place] [address] 11/16/2024 1:00 PM EDT Appointment [facility] [address] [place] [address] 11/17/2024 3:00 PM EDT Appointment [facility] 2 [address] [place] [address] 11/18/2024 3:00 PM EDT Appointment [facility] 1 [address] [place] [address] 11/19/2024 2:00 PM EDT Appointment [facility] 2 [address] [place] [address] documented as of this encounter Visit Diagnoses Not on filedocumented in this encounter Additional Health Concerns Assessment Noted Time A fall risk assessment has been complete d for the patient 09/30/2024 9:33 AM EDT A Body Mass Index follow-up plan has been documented for the patient 05/28/2024 1:52 PM EST documented as of this encounter Care Teams Assistant Manager/Embalmer Relationship Specialty Start Date End Date Jevon Vazquez MD [address] [place] [address] #1 #1 JulienJOSEP [id number] PCP - General 03/23/22 documented as of this encounter
--- OUTSIDE RECORDS SUMMARY | 2024-11-07 09:01 | XMS_ITS | Clinical Summary ---
Author Organization [facility] Address [address] 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); Immunosuppressed status (CMS/HCC) 10/28/2024 Telephone [facility] Hematology/BMT and Cellular Therapy Program [address] [place] [address] Zonia Hoffman, SLIP COVER ESTIMATOR 10/27/2024 Telephone [facility] Hematology/BMT and Cellular Therapy Program [address] [place] [phone] Zonia Hoffman, SLIP COVER ESTIMATOR 10/27/2024 Travel 10/26/2024 Travel 10/24/2024 Travel 10/23/2024 Travel 10/22/2024 Travel 10/15/2024 Refill [facility] Hematology/BMT and Cellular Therapy Program [address] [place] [phone] New Mckinney MD 10/14/2024 Refill [facility] Hematology/BMT and Cellular Therapy Program [address] [place] [address] New Mckinney MD 10/13/2024 Telephone [facility] Hematology/BMT and Cellular Therapy Program [address] [place] [address] Zonia Hoffman, SLIP COVER ESTIMATOR 10/13/2024 Travel 10/12/2024 Travel 10/11/2024 Travel 10/09/2024 Travel 10/08/2024 Travel 10/08/2024 Orders Only [facility] Hematology/BMT and Cellular Therapy Program [address] [place] [address] 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, stock patcher 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) 10/07/2024 Travel 09/30/2024 9:30 AM EDT Office Visit [facility] Hematology/BMT and Cellular Therapy Program [address] [place] [address] Zonia Hoffman, SLIP COVER ESTIMATOR 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, [address] [place] [address] [place] [phone] Zoraida Good, RN 09/30/2024 Travel 09/29/2024 Travel 09/28/2024 Travel 09/27/2024 Travel 09/26/2024 Travel 09/25/2024 Travel 09/24/2024 Travel 09/23/2024 Travel 09/19/2024 12:00 PM EDT Procedure Visit [facility] Hematology/BMT and Cellular Therapy Program 750 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) 09/19/2024 7:30 AM EDT Clinical Support [facility] Hematology/BMT and Cellular Therapy Program [address] [phone] 09/19/2024 Telephone [facility] Hematology/BMT and Cellular Therapy Program [address] [phone] Romana Richmond, RN 09/19/2024 Orders Only [facility] Hematology/BMT and Cellular Therapy Program [address] [phone] 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, RN 09/19/2024 Travel 09/15/2024 Telephone [facility] Hematology/BMT and Cellular Therapy Program [address] [phone] Zonia Hoffman APRN 09/15/2024 Travel 09/14/2024 Travel 09/13/2024 Travel 09/12/2024 Travel 09/12/2024 Refill [facility] Hematology/BMT and Cellular Therapy Program [address] [place] [address] New Mckinney MD 09/11/2024 Travel 09/10/2024 Travel 09/01/2024 Telephone [facility] Hematology/BMT and Cellular Therapy Program [address] [place] [phone] Zonai Hoffman, SLIP COVER ESTIMATOR 08/31/2024 Travel 08/30/2024 Travel 08/18/2024 Telephone [facility] Hematology/BMT and Cellular Therapy Program [address] [place] [address] [place] [address] Romana Gorman, SLIP COVER ESTIMATOR 08/17/2024 Travel 08/16/2024 Travel 08/15/2024 Travel 08/13/2024 [...] ([facility] st Contact Info) Description 11/13/2024 1:00 PM EDT Clinical Support [facility] Hematology/BMT and Cellular Therapy Program [address] [phone] 11/13/2024 1:30 PM EDT Office Visit [facility] Hematology/BMT and Cellular Therapy Program [address] [phone] Zonia Hoffman, SLIP COVER ESTIMATOR 800 [facility] [address] [place] [phone] 11/13/2024 3:00 PM EDT Appointment [facility] H Infusion [address] [place] [address] 11/14/2024 1:00 PM EDT Appointment [facility] [address] [place] [address] 11/15/2024 1:00 PM EDT Appointment [facility] [address] [place] [address] 11/16/2024 1:00 PM EDT Appointment [facility] [address] [place] [address] 11/17/2024 3:00 PM EDT Appointment [facility] 2 [address] [place] [address] 11/18/2024 3:00 PM EDT Appointment [facility] 1 [address] [place] [address] 11/19/2024 2:00 PM EDT Appointment [facility] 2 [address] [place] [address] Health Maintenance Due Date Last Done Comments [...] UKY-Zoster Vaccines (1 of 2) 05/16/2023 03/21/2023 [id number] Vaccine ( season) 2023 02/18/2021, 07/10/2020, 06/12/2020 [...] this topic Medical Devices Implanted Type Area Supervisor Felting Device Identifier Shelf Expiration Date Model / Serial / Lot Port Clearvue Power 8fr - [id number] Implanted:Qty: 1 on 01/21/2024 by Ness Sargent MD at [facility] Peripherial Vascular-[id number] / / Procedures Procedure Name Priority Date/Time [...] LAB HEMATOLOGY METHOD 09/30/2024 11:07 AM EDT [facility] RBC Count 1.91(L) 3.90 - 5.20 10*6/uL LAB HEMATOLOGY METHOD 09/30/2024 11:07 AM EDT [facility] HGB 7.7(L) 11.2 - 15.7 g/dL LAB HEMATOLOGY METHOD 09/30/2024 11:07 AM EDT [facility] HCT 22.8(L) 34.0 - 45.0 % LAB HEMATOLOGY METHOD 09/30/2024 11:07 AM EDT [facility] Platelet Count 17(LL) 155 - 369 10*3/uL LAB HEMATOLOGY METHOD 09/30/2024 11:07 AM EDT [facility] MCV 119(H) 79 - 98 fL LAB HEMATOLOGY METHOD 09/30/2024 11:07 AM EDT [facility] MCH 40.3(H) 26.0 - 32.0 pg LAB HEMATOLOGY METHOD 09/30/2024 11:07 AM EDT [facility] MCHC 33.8 30.7 - 35.5 g/dL LAB HEMATOLOGY METHOD 09/30/2024 11:07 AM EDT [facility] RDW 18.7(H) 11.5 - 14.5 % LAB HEMATOLOGY METHOD 09/30/2024 11:07 AM EDT [facility] MPV 11.1 8.8 - 12.5 fL LAB HEMATOLOGY METHOD 09/30/2024 11:07 AM EDT [facility] nRBC 0.0 <=0.0 per 100 WBCs LAB HEMATOLOGY METHOD 09/30/2024 11:07 AM EDT [facility] Differential Type Automated LAB HEMATOLOGY METHOD 09/30/2024 11:07 AM EDT [facility] Neutrophils % 65 % LAB HEMATOLOGY METHOD 09/30/2024 11:07 AM EDT [facility] Lymphocytes % 26 % LAB HEMATOLOGY METHOD 09/30/2024 11:07 AM EDT [facility] Monocytes % 7 % LAB HEMATOLOGY METHOD 09/30/2024 11:07 AM EDT [facility] Eosinophils % 1 % LAB HEMATOLOGY METHOD 09/30/2024 11:07 AM EDT [facility] Basophils % 1 % LAB HEMATOLOGY METHOD 09/30/2024 11:07 AM EDT [facility] Immature Granulocytes % 0 % LAB HEMATOLOGY METHOD 09/30/2024 11:07 AM EDT [facility] Neutrophils Absolute 2.17 1.60 - 6.10 10*3/uL LAB HEMATOLOGY METHOD 09/30/2024 11:07 AM EDT [facility] Lymphocytes Absolute 0.87(L) 1.20 - 3.90 10*3/uL LAB HEMATOLOGY METHOD 09/30/2024 11:07 AM EDT [facility] Monocytes Absolute 0.24(L) 0.30 - 0.90 10*3/uL LAB HEMATOLOGY METHOD 09/30/2024 11:07 AM EDT [facility] Eosinophils Absolute 0.03 0.00 - 0.50 10*3/uL LAB HEMATOLOGY METHOD 09/30/2024 11:07 AM EDT [facility] Basophils Absolute 0.02 0.00 - 0.10 10*3/uL LAB HEMATOLOGY METHOD 09/30/2024 11:07 AM EDT [facility] Immature Granulocytes Absolute 0.01 0.00 - 0.06 10*3/uL LAB HEMATOLOGY METHOD 09/30/2024 11:07 AM EDT [facility] Blood Venous blood specimen / Unknown (Port) Long-term Catheter / Unknown 09/30/2024 9:11 AM EDT 09/30/2024 9:34 AM EDT Narrative [facility] - 09/30/2024 11:07 AM EDT Therapeutic decision making should be based on absolute values, rather than percentages. us Zonia Hoffman APRN LAB BLOOD ORDERABLES Final Res ult [facility] [address] [place] [address] * (ABNORMAL) Comprehensive Metabolic Panel, Plasma (09/30/2024 9:11 AM EDT) [facility] Glucose, Plasma 135(H) 74 - 99 mg/dL 09/30/2024 10:20 AM EDT [facility] BUN, Plasma 21 8 - 23 mg/dL 09/30/2024 10:20 AM EDT [facility] Creatinine, Plasma 1.00 0.60 - 1.10 mg/dL 09/30/2024 10:20 AM EDT [facility] BUN/Creatinine Ratio 21 09/30/2024 10:20 AM EDT [facility] Sodium, Plasma 137 136 - 145 mmol/L 09/30/2024 10:20 AM EDT [facility] Potassium, Plasma 3.8 3.6 - 4.9 mmol/L 09/30/2024 10:20 AM EDT [facility] Chloride, Plasma 107 97 - 107 mmol/L 09/30/2024 10:20 AM EDT [facility] CO2, Plasma 22 22 - 29 mmol/L 09/30/2024 10:20 AM EDT [facility] Anion Gap 8 6 - 16 mmol/L 09/30/2024 10:20 AM EDT [facility] Total Calcium, Plasma 9.8 8.9 - 10.2 mg/dL 09/30/2024 10:20 AM EDT [facility] Total Protein 5.9(L) 6.3 - 7.9 g/dL 09/30/2024 10:20 AM EDT [facility] Albumin, Plasma 3.8 3.5 - 5.2 g/dL 09/30/2024 10:20 AM EDT [facility] AST, Plasma 28 10 - 35 U/L 09/30/2024 10:20 AM EDT [facility] ALT, Plasma 14 10 - 35 U/L 09/30/2024 10:20 AM EDT [facility] Alkaline Phosphatase, Plasma 34(L) 46 - 142 U/L 09/30/2024 10:20 AM EDT [facility] Total Bilirubin, Plasma 0.3 0.2 - 1.1 mg/dL 09/30/2024 10:20 AM EDT [facility] eGFRcr 59.6 mL/min/1.7 3m*2 09/30/2024 10:20 AM EDT [facility] Comment:Reported eGFRcr in m L/min/1.73m2 is based the CKD-EPI 2020 equation that does not use a race coefficient. Blood Venous blood specimen / Unknown (Port) Long-term Catheter / Unknown 09/30/2024 9:11 AM EDT 09/30/2024 9:50 AM EDT Zonia Hoffman APRN LAB BLOOD ORDERABLES Final Res ult [facility] [address] [place] [address] * BIOPSY BONE MARROW (09/19/2024 12:00 PM [...] to surronding structures. Alternatives discussed: Delayed treatment [place] protocol: Procedure explained and questions answered to [...] at the site and an 11 gauge Scarossoshidi needle was inserted into the right posterior [...] count (09/19/2024 10:04 AM EDT) Pathologist [facility] Platelet Count 61(L) 155 - 369 10*3/uL LAB HEMATOLOGY METHOD 09/19/2024 10:19 AM EDT [facility] Blood Blood sample taken from central line / Unknown (Port) Long-term Catheter / Unknown 09/19/2024 10:04 AM EDT 09/19/2024 10:18 AM EDT New Mckinney MD LAB BLOOD ORDERABLES Final Re sult [facility] [address] [place] [address] * Transfuse platelets, Irradiated (09/19/2024 10:02 AM EDT) Lexi Ferraro APRN BLOOD TRANSFUSION ORDERABL ES Final Result * Prepare Leukocyte Reduced Platelets (09/19/2024 9:08 AM EDT) Pathologist [facility] Product Code [id number] BLOO D BANK Dispense Status Transfused BLOOD BANK Blood Expiration Date [id number] BLOOD BANK Unit Number [id number] CH B LOOD BANK Product Blood Type 6200 BLOOD BANK Blood Type A+ BLOOD BANK Provider Not In System BLOOD BANK PRODUCT ORD ERABLES Final Result Performing Organization Address City/[facility] Co de Phone Number BLOOD BANK [address] [place] [address], * Myeloid Focused Panel, 50 gene (09/19/2024 7:29 AM EDT) Interpretation The following two (2) genes, TP53 and DNMT3A, with persistent variants have been detected in this bone marrow specimen. The variant, p.[id number], in TP53 gene and the variant, p.[id number], in the RUNX 1 gene are not detectable at current cutoff and coverage established in this lab. Gene: TP53 Mutation: c.814G>A; p.[id number] Allele Frequency (%): 37% (45% Dec 2023) ID: [id number] Gene: DNMT3A Mutation: c.1522delC; p.[id number] 3 Allele Frequency (%): 36% (48% Dec 2023) Additional Details on Mutation Identified: Gene Transcript Genome Chrom Coordinate RefVar DNMT3A [id number] Hg19 2 [id number] delC TP53 NM_000546.5 Hg19 17 [id number] G>A 09/29/2024 4:05 PM EDT [facility] Methodology The following 50 genes [...] then sequenced on the Illumina NextSeq 2000 ([employer], [place]). A custom bioinformatics pipeline aligns [...] of hematologic malignancies. 09/29/2024 4:05 PM EDT [facility] Disclaimer This test was developed and its performance characteristics determined by the Clinical Molecular and Genomic Pathology Laboratory at the [facility]. It has not been cleared [...] clinical laboratory testing. 09/29/2024 4:05 PM EDT [facility] Pathologist Signature Reviewed by: Corey Tejada 09/29/2024 4:05 PM EDT [facility] Bone Marrow Specimen from bone marrow obtained by aspiration / Unknown Non-blood Collection / Unknown 09/19/2024 7:29 AM EDT 09/19/2024 12:03 PM EDT us New Mckinney MD LAB MOLECULAR DIAGNOSTICS ORD ERABLES Final Result Performing Organization Address City/State/[facility] Co de Phone Number [facility] [address] [place] [address], * Chromosome Karyotype, Oncology (09/19/2024 7:29 AM EDT) Specimen Type Bone Marrow 09/24/2024 2:37 PM EDT [facility] Clinical Indication Myelodysplastic Syndrome 09/24/2024 2:37 PM EDT [facility] Specimen Adequacy Adequate 025 2:37 PM EDT [facility] Chromosome Analysis Result Giemsa-banded metaphase cells from unstimulated bone marrow cultures showed a 46,XX[20] chromosome pattern. 09/24/2024 2:37 PM EDT [facility] Interpretation Normal female chromosome analysis. No clonal abnormalities were detected at current resolution. Clinical correlation is recommended. # cells counted = 20 # cells analyzed = 20 # cells karyotyped = 2 Band resolution: 450-525 09/24/2024 2:37 PM EDT [facility] Pathologist Signature Reviewed by: Corey Tejada 09/24/2024 2:37 PM EDT [facility] Bone Marrow Non-blood Collection / Unknown 09/19/2024 7:29 AM EDT 09/19/2024 12:35 PM EDT New Mckinney MD LAB CYTOGENETICS ORDERABLES F inal Result [facility] [address] [place] [address] * Leukemia/Lymphoma - Immunophenotyping by Flow Cytometry (09/19/2024 7:29 AM EDT) Clinical Indication AML 09/22/2024 10:29 AM EDT [facility] Flow Cytometry Interpretation A. BONE MARROW FOR FLOW CYTOMETRY: - MIXED MARROW ELEMENTS WITH NO EVIDENCE OF INCREASED BLASTS OR ABNORMAL LYMPHOID POPULATIONS, SEE COMMENT. 09/22/2024 10:29 AM EDT [facility] Comments CD45/side scatter analysis [...] surface light chains 09/22/2024 10:29 AM EDT [facility] Disclaimer This test was developed and its performance characteristics determined by the Immuno-Molecular Pathology Laboratory at the [facility]. It has not been cleared [...] on the report. 09/22/2024 10:29 AM EDT [facility] Pathologist Signature Reviewed by: Lisandra Epstein MD 09/22/2024 10:29 AM EDT [facility] MRD Indicated Test Not Indicated 12/2024 10:29 AM EDT [facility] Bone Marrow Specimen from bone marrow obtained by aspiration / Unknown Non-blood Collection / Unknown 09/19/2024 7:29 AM EDT 09/19/2024 12:13 PM EDT New Mckinney MD LAB FLOW CYTOMETRY ORDERABLES Final Result [facility] [address] [place] [address] * Bone marrow exam (09/19/2024 7:29 AM EDT) Case Report Bone Marrow Case: [id number] Authorizing Provider: New Mckinney MD Collected: 09/19/2024 0729 Ordering Location: [facility] Hematology/BMT and Received: 09/19/2024 1216 Cellular Therapy Program Pathologist: Lisandra Epstein MD Specimens: A) - Bone Marrow Aspirate, right B) - Bone Marrow Biopsy, right C) - Peripheral Blood for Bone Marrow 5 3:15 PM EDT [facility] Cytogenetics Report, Addendum Chromosome Analysis Result Giemsa-banded metaphase cells from unstimulated bone marrow cultures showed a 46,XX[20] chromosome pattern. Interpretation Normal female chromosome analysis. No clonal abnormalities were detected at current resolution. Clinical correlation is recommended. 5 3:15 PM EDT [facility] Addendum electronically signed by Lisandra Epstein MD on 09/24/2024 at 1630 EDT Addendum Interpretation The following two (2) genes, TP53 and DNMT3A, with persistent variants have been detected in this bone marrow specimen. The variant, p.[id number], in TP53 gene and the variant, p.[id number], in the RUNX 1 gene are not detectable at current cutoff and coverage established in this lab. Gene: TP53 Mutation: c.814G>A; p.Zuj273Tvr Allele Frequency (%): 37% (45% Dec 2023) ID: [id number] Gene: DNMT3A Mutation: c.1522delC; p.[id number] 43 Allele Frequency (%): 36% (48% Dec 2023) Additional Details on Mutation Identified: 3:15 PM EDT [facility] Addendum electronically signed by Lisandra Epstein MD on 09/30/2024 at 1515 EDT Final Diagnosis PERIPHERAL BLOOD AND BONE MARROW, RIGHT POSTERIOR ILIAC CREST, (ASPIRATE SMEAR, AND CORE BIOPSY): - HYPOCELLULAR BONE MARROW WITH MARKEDLY DECREASED MEGAKARYOCYTES; NO SIGNIFICANT DYSPOIESIS OR INCREASE IN BLASTS. 3:15 PM EDT [facility] at 1453 EDT Clinical Information AML 09/14 3:15 PM EDT [facility] CBC and Differential PERIPHERAL [...] blasts are not seen. 3:15 PM EDT [facility] Bone Marrow Differential BONE MARROW DIFFERENTIAL: 200 cells Normal Patient Neutrophils 15-50 34 Metamyelocytes 4-19 3 Myelocytes 1-18 10 Promyelocytes 1-8 1 Blasts 0-2 1 Monocytes 0-5 4 Erythroid 16-38 22 Lymphocytes 3-24 13 Eosinophils 0-6 8 Basophils 0-2 0 Plasma cells 0-4 4 Other 3:15 PM EDT [facility] Bone Marrow Aspirate and Biopsy The bone [...] Bone trabeculae are unremarkable. 3:15 PM EDT [facility] Special and Immunohistochemical Stains Special Stain: A1-1 Vazquez-Giemsa A1-2 Vazquez-Giemsa A1-3 Vazquez-Giemsa C1-1 Vazquez-Giemsa IHC: B1-2 CD34 All controls show appropriate reactivity. All immunohistochemis try, in situ hybridization, and histochemical tests were developed by and are performed at the [facility], [address] [place] [address]. All tests reported here, except those addressing [...] negativity on decalcified specimens. 3:15 PM EDT [facility] Flow Cytometry Interpretation MIXED MARROW ELEMENTS WITH NO EVIDENCE OF INCREASED BLASTS OR ABNORMAL LYMPHOID POPULATIONS ([id number]). 3:15 PM EDT [facility] CYTOGENETICS/MOLECULA R INTERPRETATION Correlation with cytogenetic/molec ular analysis is suggested. 3:15 PM EDT [facility] Gross Description B. RIGHT A single specimen is received in formalin labeled bone marrow biopsy right posterior iliac crest and consists of 2 piece(s) of red/white tissue measuring 2.1/0.3 cm in length 0.2 cm in diameter. The specimen is submitted in to Histology for decalcification and routine processing. Cold Time: <1m 3:15 PM EDT [facility] Note: A resident was involved in the service. I attest I examined the relevant preparations for the specimens and confirmed the diagnosis or interpretation. 3:15 PM EDT [facility] Bone Marrow Peripheral blood [...] ed Result - Final Performing Organization Address City/[facility]/ZIP Co de Phone Number [facility] [address] [place] [address] * Hepatitis C Antibody w/Reflex to HCV Quant PCR (01/07/2024 8:42 AM EDT) Hepatitis C Antibody Negative Negative 01/07/2024 10:13 AM EDT [facility] Blood Venous blood specimen / Unknown Venipuncture / Unknown 01/07/2024 8:42 AM EDT 01/07/2024 9:25 AM EDT New Mckinney MD LAB BLOOD ORDERABLES Final Re sult Performing Organization Address City/[facility]/ZIP Co de Phone Number [facility] [address] [place] [address] from Last 3 Months or Most Recently Relevant to Health Maintenance Insurance MEDICARE ANTH Care Teams Home Care Attendant Relationship Specialty Start Date End Date Jevon Vazquez MD [address] [place] [address] #1 #1 JulienJOSEP [id number] PCP - General 03/23/22
--- OUTSIDE RECORDS SUMMARY | 2024-11-07 09:01 | XMS_ITS | Encounter Summary ---
Author Organization Healthcare Address [address] [place] [address] Care Team Providers Care Puff Iron Operator Name Role Phone Jevon Vazquez MD Primary Care Provider [phone] Encounter Details Date Type Department Care Team ([facility] st Contact Info) Description 10/27/2024 Telephone [facility] Hematology/BMT and Cellular Therapy Program [address] [phone] Zonia Hoffman, BEEF CATTLE FARM MANAGER 800 [facility] [address] [place] [phone] Social History Tobacco Use Types Packs/Day Years [...] and her new appts will be on [employer]. She verbalizes understanding. * Telephone Encounter - [...] [facility] Hematology/BMT and Cellular Therapy Program [address] [phone] 11/13/2024 1:30 PM EDT Office Visit [facility] Hematology/BMT and Cellular Therapy Program [address] [phone] Zonia Hoffman, BEEF CATTLE FARM MANAGER 800 [facility] [address] [place] [phone] 11/13/2024 3:00 PM EDT Appointment [facility] [address] [place] [address] 11/14/2024 1:00 PM EDT Appointment [facility] [address] [place] [address] 11/15/2024 1:00 PM EDT Appointment [facility] [address] [place] [address] 11/16/2024 1:00 PM EDT Appointment [facility] [address] [place] [address] 11/17/2024 3:00 PM EDT Appointment [facility] 2 [address] [place] [address] 11/18/2024 3:00 PM EDT Appointment [facility] 1 [address] [place] [address] 11/19/2024 2:00 PM EDT Appointment [facility] 2 [address] [place] [address] documented as of this encounter Visit Diagnoses Not on filedocumented in this encounter Additional Health Concerns Assessment Noted Time A fall risk assessment has been complete d for the patient 09/30/2024 9:33 AM EDT A Body Mass Index follow-up plan has been documented for the patient 05/28/2024 1:52 PM EST documented as of this encounter Care Teams Puff Iron Operator Relationship Specialty Start Date End Date Jevon Vazquez MD [address] [place] [address] #1 #1 [place]SEP [place] [phone] PCP - General 03/23/22 documented as of this encounter
--- OUTSIDE RECORDS SUMMARY | 2024-11-07 09:01 | XMS_ITS | Encounter Summary ---
Author Organization Healthcare Address [address] [place] [address] Care Team Providers Care Autos Disassembler Name Role Phone Jevon Vazquez MD Primary Care Provider [phone] Encounter Details Date Type Department Care Team [...] Hematology/BMT and Cellular Therapy Program [address] [address] 11/13/2024 1:30 PM EDT Office Visit [facility] Hematology/BMT and Cellular Therapy Program [address] [address] Zonia Hoffman, RODDY 800 [facility] [address] [place] [address] 11/13/2024 3:00 PM EDT Appointment [facility] 800 [place] [address] 11/14/2024 1:00 PM EDT Appointment [facility] [address] [place] [address] 11/15/2024 1:00 PM EDT Appointment [facility] 800 [place] [address] 11/16/2024 1:00 PM EDT Appointment [facility] 800 [place] [address] 11/17/2024 3:00 PM EDT Appointment [facility] 2 744 [place] [address] 11/18/2024 3:00 PM EDT Appointment [facility] 1 744 [place] [address] 11/19/2024 2:00 PM EDT Appointment [facility] 2 7[address] [place] [address] documented as of this encounter Visit Diagnoses Not on filedocumented in this encounter Additional Health Concerns Assessment Noted Time A fall risk assessment has been complete d for the patient 09/30/2024 9:33 AM EDT A Body Mass Index follow-up plan has been documented for the patient 05/28/2024 1:52 PM EST documented as of this encounter Care Teams Autos Disassembler Relationship Specialty Start Date End Date Jevon Vazquez MD [address] [place] [address] #1 #1 Julien JOSEP [id number] PCP - General 03/23/22 documented as of this encounter
--- OUTSIDE RECORDS SUMMARY | 2024-11-07 09:01 | XMS_ITS | Encounter Summary ---
Author Organization Healthcare Address [address] [place] [address] Care Team Providers Care Senior Loan Processor Name Role Phone Jevon Vazquez MD Primary Care Provider [phone] Encounter Details Date Type Department Care Team [...] Hematology/BMT and Cellular Therapy Program [address] [address] 11/13/2024 1:30 PM EDT Office Visit [facility] Hematology/BMT and Cellular Therapy Program [address] [address] Zonia Hoffman, RODDY 800 [facility] [address] [place] [address] 11/13/2024 3:00 PM EDT Appointment [facility] 800 [place] [address] 11/14/2024 1:00 PM EDT Appointment [facility] [address] [place] [address] 11/15/2024 1:00 PM EDT Appointment [facility] 800 [place] [address] 11/16/2024 1:00 PM EDT Appointment [facility] 800 [place] [address] 11/17/2024 3:00 PM EDT Appointment [facility] 2 744 [place] [address] 11/18/2024 3:00 PM EDT Appointment [facility] 1 744 [place] [address] 11/19/2024 2:00 PM EDT Appointment [facility] 2 744 [place] [address] documented as of this encounter Visit Diagnoses Not on filedocumented in this encounter Additional Health Concerns Assessment Noted Time A fall risk assessment has been complete d for the patient 09/19/2024 8:38 AM EDT A Body Mass Index follow-up plan has been documented for the patient 05/28/2024 1:52 PM EST documented as of this encounter Care Teams Senior Loan Processor Relationship Specialty Start Date End Date Jevon Vazquez MD [address] [place] [address] #1 #1 Julien JOSEP [id number] PCP - General 03/23/22 documented as of this encounter
--- OUTSIDE RECORDS SUMMARY | 2024-11-07 09:01 | XMS_ITS | Encounter Summary ---
Author Organization Healthcare Address [address] [place] [address] Care Team Providers Care Income Tax Auditor Name Role Phone Jevon Vazquez MD Primary Care Provider [phone] Encounter Details Date Type Department Care Team [...] Hematology/BMT and Cellular Therapy Program [address] [address] 11/13/2024 1:30 PM EDT Office Visit [facility] Hematology/BMT and Cellular Therapy Program [address] [address] Zonia Hoffman, RODDY 800 [facility] [address] [place] [address] 11/13/2024 3:00 PM EDT Appointment [facility] 800 [place] [address] 11/14/2024 1:00 PM EDT Appointment [facility] [address] [place] [address] 11/15/2024 1:00 PM EDT Appointment [facility] 800 [place] [address] 11/16/2024 1:00 PM EDT Appointment [facility] [address] [place] [address] 11/17/2024 3:00 PM EDT Appointment [facility] 2 7[address] [place] [address] 11/18/2024 3:00 PM EDT Appointment [facility] 1 [address]44 [place] [address] 11/19/2024 2:00 PM EDT Appointment [facility] 2 [address] [place] [address] documented as of this encounter Visit Diagnoses Not on filedocumented in this encounter Additional Health Concerns Assessment Noted Time A fall risk assessment has been complete d for the patient 09/19/2024 8:38 AM EDT A Body Mass Index follow-up plan has been documented for the patient 05/28/2024 1:52 PM EST documented as of this encounter Care Teams Income Tax Auditor Relationship Specialty Start Date End Date Jevon Vazquez MD [address] [place] [address] #1 #1 Julien JOSEP [id number] PCP - General 03/23/22 documented as of this encounter
--- OUTSIDE RECORDS SUMMARY | 2024-11-07 09:01 | XMS_ITS | Encounter Summary ---
Author Organization Healthcare Address [address] [place] [address] Care Team Providers Care Lockstitch Lining Maker Name Role Phone Jevon Vazquez MD Primary Care Provider [phone] Encounter Details Date Type Department Care Team [...] Hematology/BMT and Cellular Therapy Program [address] [address] 11/13/2024 1:30 PM EDT Office Visit [facility] Hematology/BMT and Cellular Therapy Program [address] [address] Zonia Hoffman, RODDY 800 [facility] [address] [place] [address] 11/13/2024 3:00 PM EDT Appointment [facility] 800 [place] [address] 11/14/2024 1:00 PM EDT Appointment [facility] [address] [place] [address] 11/15/2024 1:00 PM EDT Appointment [facility] 800 [place] [address] 11/16/2024 1:00 PM EDT Appointment [facility] [address] [place] [address] 11/17/2024 3:00 PM EDT Appointment [facility] 2 [address] [place] [address] 11/18/2024 3:00 PM EDT Appointment [facility] 1 [address] [place] [address] 11/19/2024 2:00 PM EDT Appointment [facility] 2 [address] [place] [address] documented as of this encounter Visit Diagnoses Not on filedocumented in this encounter Additional Health Concerns Assessment Noted Time A fall risk assessment has been complete d for the patient 09/30/2024 9:33 AM EDT A Body Mass Index follow-up plan has been documented for the patient 05/28/2024 1:52 PM EST documented as of this encounter Care Teams Lockstitch Lining Maker Relationship Specialty Start Date End Date Jevon Vazquez MD [address] [place] [address] #1 #1 Julien JOSEP [id number] PCP - General 03/23/22 documented as of this encounter
--- OUTSIDE RECORDS SUMMARY | 2024-11-07 09:01 | XMS_ITS | Encounter Summary ---
Author Organization [facility] Address [address] [place] [address] Care Team Providers Care Mold Maker Helper Name Role Phone Jevon Vazquez MD Primary Care Provider [phone] Reason for Visit * Reason Comments Med Refill Encounter Details Date Type Department Care Team ([facility] Contact Info) Description 10/14/2024 Refill [facility] Hematology/BMT and Cellular Therapy Program [address] [phone] [place] Mckinney MD 800 [facility] [address] [place] [address] Social History Tobacco Use Types Packs/Day Years [...] Upcoming Encounters Date Type Department Care Team ([facility] Contact Info) Description 11/13/2024 1:00 PM EDT Clinical Support [facility] Hematology/BMT and Cellular Therapy Program [address] [address] 11/13/2024 1:30 PM EDT Office Visit [facility] Hematology/BMT and Cellular Therapy Program [address] [address] Zonia Hoffman, KEYSEATING MACHINE SET UP OPERATOR 800 [facility] [address] [place] [address] 11/13/2024 3:00 PM EDT Appointment [facility] 800 [place] [address] 11/14/2024 1:00 PM EDT Appointment [facility] 800 [place] [address] 11/15/2024 1:00 PM EDT Appointment [facility] 800 [place] [address] 11/16/2024 1:00 PM EDT Appointment [facility] 800 [place] [address] 11/17/2024 3:00 PM EDT Appointment [facility] 2 [address] [place] [address] 11/18/2024 3:00 PM EDT Appointment [facility] 1 [address] [place] [address] 11/19/2024 2:00 PM EDT Appointment [facility] 2 [address] [place] [address] documented as of this encounter Visit Diagnoses Not on filedocumented in this encounter Additional Health Concerns Assessment Noted Time A fall risk assessment has been complete d for the patient 09/30/2024 9:33 AM EDT A Body Mass Index follow-up plan has been documented for the patient 05/28/2024 1:52 PM EST documented as of this encounter Care Teams Mold Maker Helper Relationship Specialty Start Date End Date Jevon Vazquez MD [address] [place] [address] #1 #1 JulienJOSEP [id number] PCP - General 03/23/22 documented as of this encounter
--- OUTSIDE RECORDS SUMMARY | 2024-11-07 09:01 | XMS_ITS | Clinical Summary ---
Author Organization [facility] Address [address] [place] [address] Phone Care Team Providers Care Play Back Operator Name Role Phone Jevon Vazquez MD Primary Care Provider [phone] Allergies Active Allergy Reactions Criticality Noted Date [...] Surgeon: Ivan Bartholomew MD; Location: [facility] MAIN OR; Service: Spine Medical [...] 5.6 % 11/14/2022 2:57 PM EDT [facility]REFERRED [facility] [employer] [facility]. Avg Glucose 148 mg/dL 11/14/2022 2:57 PM EDT ID [facility] [employer] Blood VENOUS BLOOD / Unknown Venipuncture / Unknown 11/11/2022 3:46 PM EDT 11/11/2022 3:55 PM EDT Narrative [facility] [employer] - 11/14/2022 2:57 PM EDT REFERENCE RANGE: Normal: 4.0-5.6% Pre-diabetes: 5.7-6.4% Provisional diagnosis of diabetes: >6.4% Hgb F>10% and anything which shortens red cell survival, such as hemolytic anemia, or unstable hemoglobin variants such as HbSS, HbSC, or HbCC, will lower the HbA1c value associated with a given level of glycemic control. us Lexi Maloney DO CHEMISTRY ORDERABLES Final R esult [facility] [employer] [address] [facility] , [place] [address] * (ABNORMAL) BASIC METABOLIC PANEL (11/11/2022 3:46 [...] recommended by the National Kidney Foundation - [place] Society of Nephrology Task Force. Blood VENOUS BLOOD / Unknown Venipuncture / Unknown 11/11/2022 3:46 PM EDT 11/11/2022 3:54 PM EDT us Leona Hanna DO CHEMISTRY ORDERABLES Final Res ult [facility] [address] [place] [address] * DX BONE DENSITY AXIAL SKELETON (07/25/2022 9:14 AM EDT) Anatomical Region Laterality Modality Dexa Scan 07/25/2022 Narrative 07/25/2022 3:45 PM EDT Indication: The patient is a female age 65 or older who requires a bone density assessment. Study was performed on Mobilitrix 5. Bone Density: Region BMD T-score Z-score [...] Most Recently Relevant to Health Maintenance Insurance [address] [place] [address] MEDICARE SUPPLEMENT MEDICARE [place] PART A AND B Member Subscriber Plan / Payer (Ef fective 2016-Present) Name:Ashly Hernández Member ID:[id number] Relation to Subscriber:Self Name:Ashly Hernández Subscriber ID:[id number] Payer ID:Not on file Group ID:Not on file Type:Not on file Address: [address] MEDICARE SUPPLEMENT MEDICARE [place] PART A & [place] [address] [place] [phone] MEDICARE [place] PART A AND B Member Subscriber Plan / Payer (Ef fective 2016-Present) Name:Ashly Hernández Member ID:[id number] Relation to Subscriber:Self Name:Ashly Hernández Subscriber ID:[id number] Payer ID:Not on file Group ID:Not on file Type:Not on file Address: [address] MEDICARE SUPPLEMENT [employer] MEDICARE [place] PART A AND B [address] MEDICARE SUPPLEMENT Advance Directives For more information, please contact: [phone] * Full Code (Latest Code Status on File) Date Activated Date Inactivated Comments 11/14/2022 6:53 PM 11/16/2022 7:37 PM * Full Code Date Activated Date Inactivated Comments 11/12/2022 5:17 AM 11/14/2022 6:47 PM Care Teams Play Back Operator Relationship Specialty Start Date End Date Jevon Vazquez MD [address] [place] [address] PCP - General Family Medicine 11/10/22
--- OUTSIDE RECORDS SUMMARY | 2024-11-07 09:01 | XMS_ITS | Encounter Summary ---
Author Organization Healthcare Address [address] [place] [address] Care Team Providers Care Linseed Oil Temperer Name Role Phone Jevon Vazquez MD Primary Care Provider [phone] Encounter Details Date Type Department Care Team [...] Hematology/BMT and Cellular Therapy Program [address] [address] 11/13/2024 1:30 PM EDT Office Visit [facility] Hematology/BMT and Cellular Therapy Program [address] [address] Zonia Hoffman, RODDY 800 [facility] [address] [place] [address] 11/13/2024 3:00 PM EDT Appointment [facility] Infusion 800 [place] [address] 11/14/2024 1:00 PM EDT Appointment [facility]fusion [address] [place] [address] 11/15/2024 1:00 PM EDT Appointment [facility]fusion [address] [place] [address] 11/16/2024 1:00 PM EDT Appointment [facility] 800 [place] [address] 11/17/2024 3:00 PM EDT Appointment [facility] 2 744 [place] [address] 11/18/2024 3:00 PM EDT Appointment [facility] 1 [address] [place] [address] 11/19/2024 2:00 PM EDT Appointment [facility] 2 [address] [place] [address] documented as of this encounter Visit Diagnoses Not on filedocumented in this encounter Additional Health Concerns Assessment Noted Time A fall risk assessment has been complete d for the patient 09/30/2024 9:33 AM EDT A Body Mass Index follow-up plan has been documented for the patient 05/28/2024 1:52 PM EST documented as of this encounter Care Teams Linseed Oil Temperer Relationship Specialty Start Date End Date Jevon Vazquez MD [address] [place] [address] #1 #1 Julien JOSEP [address] PCP - General 03/23/22 documented as of this encounter
--- OUTSIDE RECORDS SUMMARY | 2024-11-07 09:01 | XMS_ITS | Encounter Summary ---
Author Organization Healthcare Address [address] [place] [address] Care Team Providers Care Sharepoint Net Developer Name Role Phone Jevon Vazquez MD Primary Care Provider [phone] Encounter Details Date Type Department Care Team [...] Hematology/BMT and Cellular Therapy Program [address] [address] 11/13/2024 1:30 PM EDT Office Visit [facility] Hematology/BMT and Cellular Therapy Program [address] [address] Zonia Hoffman, RODDY 800 [facility] [address] [place] [address] 11/13/2024 3:00 PM EDT Appointment [facility] Infusion 800 [place] [address] 11/14/2024 1:00 PM EDT Appointment [facility] [address] [place] [address] 11/15/2024 1:00 PM EDT Appointment [facility] 800 [place] [address] 11/16/2024 1:00 PM EDT Appointment [facility] 800 [place] [address] 11/17/2024 3:00 PM EDT Appointment [facility] 2 744 [place] [address] 11/18/2024 3:00 PM EDT Appointment [facility] 1 744 [place] [address] 11/19/2024 2:00 PM EDT Appointment [facility] 2 744 [place] [address] documented as of this encounter Visit Diagnoses Not on filedocumented in this encounter Additional Health Concerns Assessment Noted Time A fall risk assessment has been complete d for the patient 09/19/2024 8:38 AM EDT A Body Mass Index follow-up plan has been documented for the patient 05/28/2024 1:52 PM EST documented as of this encounter Care Teams Sharepoint Net Developer Relationship Specialty Start Date End Date Jevon Vazquez MD [address] [place] [address] #1 #1 Julien JOSEP [id number] PCP - General 03/23/22 documented as of this encounter
--- OUTSIDE RECORDS SUMMARY | 2024-11-07 09:01 | XMS_ITS | Encounter Summary ---
Author Organization Healthcare Address [address] [place] [address] Care Team Providers Care Beater Out Name Role Phone Jevon Vazquez MD Primary Care Provider [phone] Encounter Details Date Type Department Care Team [...] Hematology/BMT and Cellular Therapy Program [address] [address] 11/13/2024 1:30 PM EDT Office Visit [facility] Hematology/BMT and Cellular Therapy Program [address] [address] Zonia Hoffman, RODDY 800 [facility] [address] [place] [address] 11/13/2024 3:00 PM EDT Appointment [facility] Infusion 800 [place] [address] 11/14/2024 1:00 PM EDT Appointment [facility] [address] [place] [address] 11/15/2024 1:00 PM EDT Appointment [facility] 800 [place] [address] 11/16/2024 1:00 PM EDT Appointment [facility] 800 [place] [address] 11/17/2024 3:00 PM EDT Appointment [facility] 2 [address] [place] [address] 11/18/2024 3:00 PM EDT Appointment [facility] 1 744 [place] [address] 11/19/2024 2:00 PM EDT Appointment [facility] 2 [address] [place] [address] documented as of this encounter Visit Diagnoses Not on filedocumented in this encounter Additional Health Concerns Assessment Noted Time A fall risk assessment has been complete d for the patient 09/19/2024 8:38 AM EDT A Body Mass Index follow-up plan has been documented for the patient 05/28/2024 1:52 PM EST documented as of this encounter Care Teams Beater Out Relationship Specialty Start Date End Date Jevon Vazquez MD [address] [place] [address] #1 #1 Julien JOSEP [id number] PCP - General 03/23/22 documented as of this encounter
--- OUTSIDE RECORDS SUMMARY | 2024-11-07 09:01 | XMS_ITS | Encounter Summary ---
Author Organization Healthcare Address [address] [place] [address] Care Team Providers Care Machine Design Teacher Name Role Phone Jevon Vazquez MD Primary Care Provider [phone] Encounter Details Date Type Department Care Team ([facility] st Contact Info) Description 10/13/2024 Telephone [facility] Hematology/BMT and Cellular Therapy Program [address] [address] Zonia Hoffman, MANAGER SOURCING 800 [facility] [address] [place] [address] Social History Tobacco Use Types Packs/Day Years [...] needs to be delayed again Callback number: [phone] documented in this encounter Plan of Treatment Upcoming Encounters Date Type Department Care Team ([facility] st Contact Info) Description 11/13/2024 1:00 PM EDT Clinical Support [facility] Hematology/BMT and Cellular Therapy Program [address] [address] 11/13/2024 1:30 PM EDT Office Visit [facility] Hematology/BMT and Cellular Therapy Program [address] [address] Zonia Hoffman, MANAGER SOURCING 800 [facility] [address] [place] [address] 11/13/2024 3:00 PM EDT Appointment [facility] Infusion 800 [place] [address] 11/14/2024 1:00 PM EDT Appointment [facility] 800 [place] [address] 11/15/2024 1:00 PM EDT Appointment [facility] [address] [place] [address] 11/16/2024 1:00 PM EDT Appointment [facility] [address] [place] [address] 11/17/2024 3:00 PM EDT Appointment [facility] 2 [address] [place] [address] 11/18/2024 3:00 PM EDT Appointment [facility] 1 [address] [place] [address] 11/19/2024 2:00 PM EDT Appointment [facility] 2 [address] [place] [address] documented as of this encounter Visit Diagnoses Not on filedocumented in this encounter Additional Health Concerns Assessment Noted Time A fall risk assessment has been complete d for the patient 09/30/2024 9:33 AM EDT A Body Mass Index follow-up plan has been documented for the patient 05/28/2024 1:52 PM EST documented as of this encounter Care Teams Machine Design Teacher Relationship Specialty Start Date End Date Jevon Vazquez MD [address] [place] [address] #1 #1 [place] [address] PCP - General 03/23/22 documented as of this encounter
--- OUTSIDE RECORDS SUMMARY | 2024-11-07 09:01 | XMS_ITS | Encounter Summary ---
Author Organization [facility] Address [address] [place] [address] Care Team Providers Care Bulk Pigment Reducer Name Role Phone Jevon Vazquez MD Primary Care Provider [phone] Encounter Details Date Type Department Care Team ([facility] Contact Info) Description 10/08/2024 Orders Only [facility] Hematology/BMT and Cellular Therapy Program [address] [address] 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, RN [facility] Acute myeloid leukemia [...] Hematology/BMT and Cellular Therapy Program [address] [address] 11/13/2024 1:30 PM EDT Office Visit [facility] Hematology/BMT and Cellular Therapy Program [address] [address] Zonia Hoffman, PATIENT CARE SECRETARY 800 [facility] [address] [place] [address] 11/13/2024 3:00 PM EDT Appointment [facility] [address] [place] [address] 11/14/2024 1:00 PM EDT Appointment [facility] 800 [place] [address] 11/15/2024 1:00 PM EDT Appointment [facility] 800 [place] [address] 11/16/2024 1:00 PM EDT Appointment [facility] [address] [place] [address] 11/17/2024 3:00 PM EDT Appointment [facility] 2 [address] [place] [address] 11/18/2024 3:00 PM EDT Appointment [facility] 1 [address] [place] [address] 11/19/2024 2:00 PM EDT Appointment [facility] 2 [address] [place] [address] Scheduled Orders Name Type Priority Associated Diagnoses [...] documented as of this encounter Care Teams Bulk Pigment Reducer Relationship Specialty Start Date End Date Jevon Vazquez MD [address] [place] [address] #1 #1 [place]SEP [place] [address] PCP - General 03/23/22 documented as of this encounter
--- OUTSIDE RECORDS SUMMARY | 2024-11-07 09:01 | XMS_ITS | Encounter Summary ---
Author Organization Healthcare Address [address] [place] [address] Care Team Providers Care Senior Materials Scientist Name Role Phone Jevon Vazquez MD Primary Care Provider [phone] Encounter Details Date Type Department Care Team [...] Hematology/BMT and Cellular Therapy Program [address] [address] 11/13/2024 1:30 PM EDT Office Visit [facility] Hematology/BMT and Cellular Therapy Program [address] [address] Zonia Hoffman, RODDY 800 [facility] [address] [place] [address] 11/13/2024 3:00 PM EDT Appointment [facility] 800 [place] [address] 11/14/2024 1:00 PM EDT Appointment [facility] [address] [place] [address] 11/15/2024 1:00 PM EDT Appointment [facility] [address] [place] [address] 11/16/2024 1:00 PM EDT Appointment [facility] [address] [place] [address] 11/17/2024 3:00 PM EDT Appointment [facility] 2 [address] [place] [address] 11/18/2024 3:00 PM EDT Appointment [facility] 1 [address] [place] [address] 11/19/2024 2:00 PM EDT Appointment [facility] 2 [address] [place] [address] documented as of this encounter Visit Diagnoses Not on filedocumented in this encounter Additional Health Concerns Assessment Noted Time A fall risk assessment has been complete d for the patient 09/30/2024 9:33 AM EDT A Body Mass Index follow-up plan has been documented for the patient 05/28/2024 1:52 PM EST documented as of this encounter Care Teams Senior Materials Scientist Relationship Specialty Start Date End Date Jevon Vazquez MD [address] [place] [address] #1 #1 Julien JOSEP [address] PCP - General 03/23/22 documented as of this encounter
--- OUTSIDE RECORDS SUMMARY | 2024-11-07 09:01 | XMS_ITS | Encounter Summary ---
Author Organization Healthcare Address [address] [place] [address] Care Team Providers Care Laboratory Technical Specialist Name Role Phone Jevon Vazquez MD Primary Care Provider [phone] Encounter Details Date Type Department Care Team [...] Hematology/BMT and Cellular Therapy Program [address] [address] 11/13/2024 1:30 PM EDT Office Visit [facility] Hematology/BMT and Cellular Therapy Program [address] [address] Zonia Hoffman, RODDY 800 [facility] [address] [place] [address] 11/13/2024 3:00 PM EDT Appointment [facility] 800 [place] [address] 11/14/2024 1:00 PM EDT Appointment [facility] [address] [place] [address] 11/15/2024 1:00 PM EDT Appointment [facility] [address] [place] [address] 11/16/2024 1:00 PM EDT Appointment [facility] [address] [place] [address] 11/17/2024 3:00 PM EDT Appointment [facility] 2 [address] [place] [address] 11/18/2024 3:00 PM EDT Appointment [facility] 1 [address] [place] [address] 11/19/2024 2:00 PM EDT Appointment [facility] 2 [address] [place] [address] documented as of this encounter Visit Diagnoses Not on filedocumented in this encounter Additional Health Concerns Assessment Noted Time A fall risk assessment has been complete d for the patient 09/30/2024 9:33 AM EDT A Body Mass Index follow-up plan has been documented for the patient 05/28/2024 1:52 PM EST documented as of this encounter Care Teams Laboratory Technical Specialist Relationship Specialty Start Date End Date Jevon Vazquez MD [address] [place] [address] #1 #1 Julien JOSEP [id number] PCP - General 03/23/22 documented as of this encounter
--- OUTSIDE RECORDS SUMMARY | 2024-11-07 09:01 | XMS_ITS | Encounter Summary ---
Author Organization Healthcare Address [address] [place] [address] Care Team Providers Care Road Grader Name Role Phone Jevon Vazquez MD Primary Care Provider [phone] Encounter Details Date Type Department Care Team [...] Hematology/BMT and Cellular Therapy Program [address] [address] 11/13/2024 1:30 PM EDT Office Visit [facility] Hematology/BMT and Cellular Therapy Program [address] [address] Zonia Hoffman, RODDY 800 [facility] [address] [place] [address] 11/13/2024 3:00 PM EDT Appointment [facility] [address] [place] [address] 11/14/2024 1:00 PM EDT Appointment [facility] [address] [place] [address] 11/15/2024 1:00 PM EDT Appointment [facility] [address] [place] [address] 11/16/2024 1:00 PM EDT Appointment [facility] [address] [place] [address] 11/17/2024 3:00 PM EDT Appointment [facility] 2 [address] [place] [address] 11/18/2024 3:00 PM EDT Appointment [facility] 1 [address] [place] [address] 11/19/2024 2:00 PM EDT Appointment [facility] 2 [address] [place] [address] documented as of this encounter Visit Diagnoses Not on filedocumented in this encounter Additional Health Concerns Assessment Noted Time A fall risk assessment has been complete d for the patient 09/30/2024 9:33 AM EDT A Body Mass Index follow-up plan has been documented for the patient 05/28/2024 1:52 PM EST documented as of this encounter Care Teams Road Grader Relationship Specialty Start Date End Date Jevon Vazquez MD [address] [place] [address] #1 #1 Julien JOSEP [id number] PCP - General 03/23/22 documented as of this encounter
--- OUTSIDE RECORDS SUMMARY | 2024-11-07 09:01 | XMS_ITS | Clinical Summary ---
Author Organization [facility] Address [address] [place] [address] Care Team Providers Care Risk Management Professional Name Role Phone David Vazquez Primary Care Provider [phone] Allergies No known active allergies Medications atorvastatin [...] series) 2025 Medical Devices Implanted Type Area Executive Vice President Device Identifier Shelf Expiration Date Model / Serial / Lot Mis Ply Scr 6.5x50mm - [id number] Implanted:Qty : 1 on 01/30/2023 by Ivan Bartholomew MD at [facility] Screw N/A: Spine Lumbar [employer] [id number] / / Mis Ply Scr 6.5x45mm - [id number] Implanted:Qty : 3 on 01/30/2023 by Ivan Bartholomew MD at [facility] Screw N/A: Spine Lumbar [employer] [id number] / / Reline Mas Reduction Screw 7.5x45 - [id number] Implanted:Qty : 2 on 01/30/2023 by Ivan Bartholomew MD at [facility] Screw N/A: Spine Lumbar [employer] [id number] / / Grft Dbm Vesuvius Putty 5cc - [id number] Implanted:Qty : 1 on 01/30/2023 by Ivan Bartholomew MD at [facility] [employer] [id number] 04/20/2025 [id number] P / [id number] / Putty I-Factor 5.0cc - [id number] Implanted:Qty : 1 on 01/30/2023 by Ivan Bartholomew MD at [facility] N/A: Spine Lumbar [employer] 03/15/2025 [id number] / / [id number] Modulus Xlw [id number] 10 Degree - [id number] Implanted:Qty : 1 on 01/30/2023 by Ivan Bartholomew MD at [facility] N/A: Spine Lumbar [employer] [id number] / / [id number] Modulus Xlw [id number] - [id number] Implanted:Qty : 1 on 01/30/2023 by Ivan Bartholomew MD at [facility] N/A: Spine Lumbar [employer] 09/28/2027 [id number] / / [id number] Reln Lock Scr 5.5mm Opn Tulip - [id number] Implanted:Qty : 6 on 01/30/2023 by Ivan Bartholomew MD at [facility] N/A: Spine Lumbar [employer] [id number] / / Reln Mas Ti Petar 5.5x70mm - [id number] Implanted:Qty : 2 on 01/30/2023 by Ivan Bartholomew MD at [facility] N/A: Spine Lumbar [employer] [id number] / / Procedures Procedure Name Priority Date/Time [...] Hgb A1C 6.0(H) 4.0 - 5.6 % [facility] Comment: Reference Ranges [...] Glycohemoglobin Standardization program (NGSP) and traceable to [facility] Estimated Average Glucose 126(H) 68 - 114 mg/dL [facility] Whole Blood (Blood) 01/24/2023 2:32 PM EDT 01/24/2023 6:00 PM EDT us Ivan Bartholomew MD CHEMISTRY ORDERABLES Fin al Result [facility] [address] * (ABNORMAL) BASIC METABOLIC PANEL (BMP=EP1) (01/24/2023 2:32 PM EDT) Sodium 141 135 - 146 mmol/L [facility] Potassium 4.8 3.5 - 5.1 mmol/L [facility] Chloride 107 98 - 110 mmol/L [facility] CO2 24 22 - 29 mmol/L [facility] Anion Gap 10 5 - 13 mmol/L [facility] Comment:Anion gap calculatio n does not include potassium (K+) value. BUN 17 7 - 25 mg/dL [facility] Creatinine 1.20 0.50 - 1.20 mg/dL [facility] Glucose 125(H) 71 - 99 mg/dL [facility] Comment:Reference range (71- 99 mg/dL) refers only to fasting samples, and does not apply to non-fasting samples. eGFR CKD-EPI 2020 48 See Note [facility] Comment: eGFR calculated with 2020 CKD-EPI equation using creatinine, patient's age and gender. Other factors, especially muscle mass, may affect accuracy and need to be considered. Patient values should be interpreted as a trend. The reference interval is >60 mL/min/1.73m2. Calcium 10.3 8.5 - 10.5 mg/dL [facility] BUN/Creatinine Ratio 14 [facility] Serum 01/24/2023 2:32 PM EDT 01/24/2023 5:54 PM EDT us Lexi SUAREZ CHEMISTRY ORDERABLES Final Resu lt [facility] [address] from Last 3 Months or Most Recently Relevant to Health Maintenance Insurance MEDICARE PART A [facility] [address] [address] [place] [address] ANTH Advance Directives For more information, please contact: [phone] * Full Code (Latest Code Status on File) Date Activated Date Inactivated Comments 01/30/2023 9:13 AM No automated chest compression devices for [facility] Patients Care Teams Risk Management Professional Relationship Specialty Start Date End Date David Vazquez [address] [place] [address] PCP - General 01/24/23
--- OUTSIDE RECORDS SUMMARY | 2024-11-07 09:01 | XMS_ITS | Encounter Summary ---
Author Organization Healthcare Address [address] [place] [address] Care Team Providers Care Music Minister Name Role Phone Jevon Vazquez MD Primary Care Provider [phone] Encounter Details Date Type Department Care Team [...] Hematology/BMT and Cellular Therapy Program [address] [address] 11/13/2024 1:30 PM EDT Office Visit [facility] Hematology/BMT and Cellular Therapy Program [address] [address] Zonia Hoffman, RODDY 800 [facility] [address] [place] [address] 11/13/2024 3:00 PM EDT Appointment [facility] 800 [place] [address] 11/14/2024 1:00 PM EDT Appointment [facility] [address] [place] [address] 11/15/2024 1:00 PM EDT Appointment [facility] [address] [place] [address] 11/16/2024 1:00 PM EDT Appointment [facility] [address] [place] [address] 11/17/2024 3:00 PM EDT Appointment [facility] 2 [address] [place] [address] 11/18/2024 3:00 PM EDT Appointment [facility] 1 [address] [place] [address] 11/19/2024 2:00 PM EDT Appointment [facility] 2 [address] [place] [address] documented as of this encounter Visit Diagnoses Not on filedocumented in this encounter Additional Health Concerns Assessment Noted Time A fall risk assessment has been complete d for the patient 09/30/2024 9:33 AM EDT A Body Mass Index follow-up plan has been documented for the patient 05/28/2024 1:52 PM EST documented as of this encounter Care Teams Music Minister Relationship Specialty Start Date End Date Jevon Vazquez MD [address] [place] [address] #1 #1 Julien JOSEP [address] PCP - General 03/23/22 documented as of this encounter
--- OUTSIDE RECORDS SUMMARY | 2024-11-07 09:01 | XMS_ITS | Encounter Summary ---
Author Organization Healthcare Address [address] [place] [address] Care Team Providers Care Resident Services Manager Name Role Phone Jevon Vazquez MD Primary Care Provider [phone] Encounter Details Date Type Department Care Team [...] Hematology/BMT and Cellular Therapy Program [address] [address] 11/13/2024 1:30 PM EDT Office Visit [facility] Hematology/BMT and Cellular Therapy Program [address] [address] Zonia Hoffman, RODDY 800 [facility] [address] [place] [address] 11/13/2024 3:00 PM EDT Appointment [facility] 800 [place] [address] 11/14/2024 1:00 PM EDT Appointment [facility] [address] [place] [address] 11/15/2024 1:00 PM EDT Appointment [facility] [address] [place] [address] 11/16/2024 1:00 PM EDT Appointment [facility] [address] [place] [address] 11/17/2024 3:00 PM EDT Appointment [facility] 2 [address] [place] [address] 11/18/2024 3:00 PM EDT Appointment [facility] 1 [address] [place] [address] 11/19/2024 2:00 PM EDT Appointment [facility] 2 [address] [place] [address] documented as of this encounter Visit Diagnoses Not on filedocumented in this encounter Additional Health Concerns Assessment Noted Time A fall risk assessment has been complete d for the patient 09/19/2024 8:38 AM EDT A Body Mass Index follow-up plan has been documented for the patient 05/28/2024 1:52 PM EST documented as of this encounter Care Teams Resident Services Manager Relationship Specialty Start Date End Date Jevon Vazquez MD [address] [place] [address] #1 #1 Julien JOSEP [address] PCP - General 03/23/22 documented as of this encounter
--- OUTSIDE RECORDS SUMMARY | 2024-11-07 09:01 | XMS_ITS | Encounter Summary ---
Author Organization Healthcare Address [address] [place] [address] Care Team Providers Care Financial Service Rep Name Role Phone Jevon Vazquez MD Primary Care Provider [phone] Encounter Details Date Type Department Care Team [...] Hematology/BMT and Cellular Therapy Program [address] [address] 11/13/2024 1:30 PM EDT Office Visit [facility] Hematology/BMT and Cellular Therapy Program [address] [address] Zonia Hoffman, RODDY 800 [facility] [address] [place] [address] 11/13/2024 3:00 PM EDT Appointment [facility] [address] [place] [address] 11/14/2024 1:00 PM EDT Appointment [facility] [address] [place] [address] 11/15/2024 1:00 PM EDT Appointment [facility] 800 [place] [address] 11/16/2024 1:00 PM EDT Appointment [facility] [address] [place] [address] 11/17/2024 3:00 PM EDT Appointment [facility] 2 [address] [place] [address] 11/18/2024 3:00 PM EDT Appointment [facility] 1 [address] [place] [address] 11/19/2024 2:00 PM EDT Appointment [facility] 2 [address] [place] [address] documented as of this encounter Visit Diagnoses Not on filedocumented in this encounter Additional Health Concerns Assessment Noted Time A fall risk assessment has been complete d for the patient 09/30/2024 9:33 AM EDT A Body Mass Index follow-up plan has been documented for the patient 05/28/2024 1:52 PM EST documented as of this encounter Care Teams Financial Service Rep Relationship Specialty Start Date End Date Jevon Vazquez MD [address] [place] [address] #1 #1 Julien JOSEP [id number] PCP - General 03/23/22 documented as of this encounter
--- OUTSIDE RECORDS SUMMARY | 2024-11-07 09:01 | XMS_ITS | Encounter Summary ---
Author Organization Healthcare Address [address] [place] [address] Care Team Providers Care Social Media Senior Associate Name Role Phone Jevon Vazquez MD Primary Care Provider [phone] Encounter Details Date Type Department Care Team ([facility] st Contact Info) Description 10/28/2024 Telephone [facility] Hematology/BMT and Cellular Therapy Program [address] [address] Zonia Hoffman, HEAD CORRECTION OFFICER 800 [facility] [address] [place] [address] Social History Tobacco Use Types Packs/Day Years [...] go over her labs results Callback number: [phone] documented in this encounter Plan of Treatment Upcoming Encounters Date Type Department Care Team (Late st Contact Info) Description 11/13/2024 1:00 PM EDT Clinical Support [facility] Hematology/BMT and Cellular Therapy Program [address] [address] 11/13/2024 1:30 PM EDT Office Visit [facility] Hematology/BMT and Cellular Therapy Program [address] [address] Zonia Hoffman, HEAD CORRECTION OFFICER 800 [facility] [address] [place] [address] 11/13/2024 3:00 PM EDT Appointment [facility] Infusion 800 [place] [address] 11/14/2024 1:00 PM EDT Appointment [facility] 800 [place] [address] 11/15/2024 1:00 PM EDT Appointment [facility]fusion 800 [place] [address] 11/16/2024 1:00 PM EDT Appointment [facility] 800 [place] [address] 11/17/2024 3:00 PM EDT Appointment [facility] 2 7[address] [place] [address] 11/18/2024 3:00 PM EDT Appointment [facility] 1 [address] [place] [address] 11/19/2024 2:00 PM EDT Appointment [facility] 2 [address] [place] [address] documented as of this encounter Visit Diagnoses Not on filedocumented in this encounter Additional Health Concerns Assessment Noted Time A fall risk assessment has been complete d for the patient 09/30/2024 9:33 AM EDT A Body Mass Index follow-up plan has been documented for the patient 05/28/2024 1:52 PM EST documented as of this encounter Care Teams Social Media Senior Associate Relationship Specialty Start Date End Date Jevon Vazquez MD [address] [place] [address] #1 #1 JOSEP [place] [address] PCP - General 03/23/22 documented as of this encounter
[2024-11-07 09:24] LABS: Hematocrit 23.0 % (37.0-47.0); Hemoglobin 7.9 g/dL (12.2-16.2); Immature Granulocytes % 0.4 %; Mean Corpuscular HGB Conc 34.3 g/dL (31.8-35.4); Mean Corpuscular Hemoglobin 36.1 pg (27.0-31.2); Mean Corpuscular Volume 105.0 fl (81-99); Nucleated Red Blood Cells % 0 %; Red Blood Count 2.19 M/mm3 (4.20-5.40); Red Cell Distribution Width-SD 80.9 fL; White Blood Count 2.2 K/mm3 (4.8-10.8)
[2024-11-07 09:30] LABS: Alanine Aminotransferase 12 U/L (12-78); Albumin Level 2.8 g/dl (3.5-5.0); Albumin/Globulin Ratio 1.3 (1.1-1.8); Alkaline Phosphatase 41 U/L (38-126); Anion Gap 6.9 mEq/L (5-15); Aspartate Amino Transferase 31 U/L (14-36); Bilirubin,Total 0.2 mg/dl (0.2-1.3); Blood Urea Nitrogen 30 mg/dl (7-17); Calcium 9.5 mg/dl (8.4-10.2); Carbon Dioxide 24 mmol/L (22.0-30.0); Chloride 109 mmol/L (98-107); Creatinine,Serum 1.00 mg/dl (0.52-1.04); Estimated Glomerular Filt Rate 54 ml/min (>60); GFR (African American) 66 ML/MIN (>60); Globulin 2.2 g/dL (1.3-3.2); Glucose 144 mg/dl (74-100); Potassium 3.9 mmoL/L (3.5-5.1); Sodium 136 mmol/L (136-145); Total Protein,Serum 5.0 g/dl (6.3-8.2)
[2024-11-07 09:33] LABS: Platelet Count 14 K/mm3 (142-424)
--- NOTE | 2024-11-07 10:01 | PC.NURSE ---
0950-Lab staff at pt bs to witness type and crossmatch being drawn. Blood armband verified and placed on pt. Pt leaving facility as specialty blood is to be ordered from [facility]. Will contact pt once blood arrives to the facility.
[2024-11-07] MEDS: ACETAMINOPHEN 325MG TAB 650 MG PO (13:49)
[2024-11-07] MEDS: 0.9 % SODIUM CHLORIDE 250 ML 25 ML IV (13:49)
[2024-11-07] MEDS: SODIUM CHLORIDE 0.9% 10ML FLUSH SYRINGE 10 ML IV (13:49)
== END 2024-11-07 17:11 | disposition home or self-care (01) ==
LOC: INF 08:58
PROVIDERS: PCP Family Medicine; Visit Provider Internal Medicine Medical Oncology
DX: C95.90 Leukemia, unspecified not having achieved remission (principal)
CPT/HCPCS: 36430; 80053; 85025; 86850; J1642; J7050; P9016

== ENCOUNTER 2024-11-10 09:03 | Outpatient (RCR) | payer MEDICARE, BC, SELFPAY ==
[2024-11-10 09:26] LABS: Hematocrit 26.5 % (37.0-47.0); Hemoglobin 9.2 g/dL (12.2-16.2); Immature Granulocytes % 0 %; Mean Corpuscular HGB Conc 34.7 g/dL (31.8-35.4); Mean Corpuscular Hemoglobin 34.6 pg (27.0-31.2); Mean Corpuscular Volume 99.6 fl (81-99); Nucleated Red Blood Cells % 0 %; Red Blood Count 2.66 M/mm3 (4.20-5.40); White Blood Count 2.2 K/mm3 (4.8-10.8)
[2024-11-10 09:34] LABS: Alanine Aminotransferase 13 U/L (12-78); Albumin Level 3.4 g/dl (3.5-5.0); Albumin/Globulin Ratio 1.8 (1.1-1.8); Alkaline Phosphatase 41 U/L (38-126); Anion Gap 10.1 mEq/L (5-15); Aspartate Amino Transferase 35 U/L (14-36); Bilirubin,Total 0.2 mg/dl (0.2-1.3); Blood Urea Nitrogen 22 mg/dl (7-17); Calcium 9.6 mg/dl (8.4-10.2); Carbon Dioxide 24 mmol/L (22.0-30.0); Chloride 107 mmol/L (98-107); Creatinine,Serum 1.10 mg/dl (0.52-1.04); Estimated Glomerular Filt Rate 49 ml/min (>60); GFR (African American) 59 ML/MIN (>60); Globulin 1.9 g/dL (1.3-3.2); Glucose 139 mg/dl (74-100); Potassium 4.1 mmoL/L (3.5-5.1); Sodium 137 mmol/L (136-145); Total Protein,Serum 5.3 g/dl (6.3-8.2)
[2024-11-10 09:35] LABS: Platelet Count 15 K/mm3 (142-424)
[2024-11-10] MEDS: SODIUM CHLORIDE 0.9% 10ML FLUSH SYRINGE 10 ML IV (09:40)
== END 2024-11-10 09:40 | disposition home or self-care (01) ==
LOC: INF 09:03
PROVIDERS: PCP Family Medicine; Visit Provider Internal Medicine Medical Oncology
DX: C92.00 Acute myeloblastic leukemia, not having achieved remission (principal)
CPT/HCPCS: 36591; 80053; 85025; J1642

== ENCOUNTER 2024-11-12 08:57 | Outpatient (CLI) | payer MEDICARE, BC, SELFPAY ==
--- OUTSIDE RECORDS SUMMARY | 2024-09-19 07:30 | XMS_ITS | Encounter Summary ---
Author Organization [facility] Address [address] [place] [address] Care Team Providers Care Refractory Worker Name Role Phone Jevon Vazquez MD Primary Care Provider [phone] Reason for Visit * Reason Comments Nurse Visit Encounter Details Date Type Department Care Team ([facility] Contact Info) Description 09/19/2024 7:30 AM EDT Clinical Support [facility] Hematology/BMT and Cellular Therapy Program [address] [phone] Social History Tobacco Use Types Packs/Day Years [...] Upcoming Encounters Date Type Department Care Team ([facility] Contact Info) Description 11/13/2024 1:00 PM EDT Clinical Support [facility] Hematology/BMT and Cellular Therapy Program [address] [phone] 11/13/2024 1:30 PM EDT Office Visit [facility] Hematology/BMT and Cellular Therapy Program [address] [phone] Zonia Hoffman, DIRECTOR IMAGING 800 [facility] [address] [place] [phone] 11/13/2024 3:00 PM EDT Appointment [facility] Infusion 800 [place] [address] 11/14/2024 1:00 PM EDT Appointment [facility] [address] [place] [address] 11/15/2024 1:00 PM EDT Appointment [facility] [address] [place] [address] 11/16/2024 1:00 PM EDT Appointment [facility] [address] [place] [address] 11/17/2024 3:00 PM EDT Appointment [facility] 2 [address] [place] [address] 11/18/2024 3:00 PM EDT Appointment [facility] 1 [address] [place] [address] 11/19/2024 2:00 PM EDT Appointment [facility] 2 [address] [place] [address] documented as of this encounter Visit Diagnoses Not on filedocumented in this encounter Additional Health Concerns Assessment Noted Time A fall risk assessment has been complete d for the patient 09/19/2024 8:38 AM EDT A Body Mass Index follow-up plan has been documented for the patient 05/28/2024 1:52 PM EST documented as of this encounter Care Teams Refractory Worker Relationship Specialty Start Date End Date Jevon Vazquez MD [address] [place] [address] #1 #1 [place] [address] PCP - General 03/23/22 documented as of this encounter
--- OUTSIDE RECORDS SUMMARY | 2024-09-19 09:30 | XMS_ITS | Encounter Summary ---
Author Organization Healthcare Address [address] [place] [address] Care Team Providers Care Corporate Safety Director Name Role Phone Jevon Vazquez MD Primary Care Provider [phone] Reason for Visit * Reason Comments Follow-up Encounter Details Date Type Department Care Team (Latest Contact Info) Description 09/19/2024 9:30 AM EDT Clinical Support [facility] Cancer Acute Treatment Clinic [address] [place] [address] Acute myeloid leukemia not having achieved remission [...] Upcoming Encounters Date Type Department Care Team ([facility] st Contact Info) Description 11/13/2024 1:00 PM EDT Clinical Support [facility] Hematology/BMT and Cellular Therapy Program [address] [place] [address] 11/13/2024 1:30 PM EDT Office Visit [facility] Hematology/BMT and Cellular Therapy Program [address] [place] [address] Zonia Hoffman, HOTEL SERVER 800 [facility] [address] [place] [address] 11/13/2024 3:00 PM EDT Appointment [facility]fusion 800 [place] [address] 11/14/2024 1:00 PM EDT Appointment [facility] [address] [place] [address] 11/15/2024 1:00 PM EDT Appointment [facility] [address] [place] [address] 11/16/2024 1:00 PM EDT Appointment [facility] [address] [place] [address] 11/17/2024 3:00 PM EDT Appointment [facility] Infusion Clinic 2 [address] [place] [address] 11/18/2024 3:00 PM EDT Appointment [facility] Infusion Clinic 1 [address] [place] [address] 11/19/2024 2:00 PM EDT Appointment [facility] Infusion Clinic 2 [address] [place] [address] documented as of this encounter Procedures Procedure Name Priority Date/Time Associated Diagnosis Comments PLATELET COUNT, BLOOD STAT 09/19/2024 10:04 AM EDT PREPARE PLATELETS Routine 09/19/2024 9:0 8 AM EDT documented in this encounter Results * (ABNORMAL) Platelet count (09/19/2024 10:04 AM EDT) Platelet Count 61(L) 155 - 369 10*3/uL LAB HEMATOLOGY METHOD 09/19/2024 10:19 AM EDT [facility] Blood Blood sample taken from central line / Unknown (Port) Long-term Catheter / Unknown 09/19/2024 10:04 AM EDT 09/19/2024 10:18 AM EDT us New Mckinney MD LAB BLOOD ORDERABLES Final Re sult [facility] [address] [place] [address] * Transfuse platelets, Irradiated (09/19/2024 10:02 AM EDT) us Lexi Ferraro APRN BLOOD TRANSFUSION ORDERABL ES Final Result * Prepare Leukocyte Reduced Platelets (09/19/2024 9:08 AM EDT) Product Code [id number] CH BLOO D BANK Dispense Status Transfused BLOOD BANK Blood Expiration Date [id number] BLOOD BANK Unit Number [id number] CH B LOOD BANK Product Blood Type 6200 BLOOD BANK Blood Type A+ CH BLOOD BANK us Provider Not In System BLOOD BANK PRODUCT ORD ERABLES Final Result BLOOD BANK [address] documented in this encounter Visit Diagnoses [...] documented as of this encounter Care Teams Corporate Safety Director Relationship Specialty Start Date End Date Jevon Vazquez MD [address] [place] [address] #1 [address]1 [place] [id number] PCP - General 03/23/22 documented as of this encounter
--- OUTSIDE RECORDS SUMMARY | 2024-09-19 12:00 | XMS_ITS | Encounter Summary ---
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) Procedures Leukemia/Lymphoma - Immunophenotyping by Flow Cytometry New Mckinney MD [address] [facility] Cancer [address] [address] Phone: tel: fax: Referral ID Status Reason Start Date Expiration Date V isits Requested Visits Authorized [id number] Authorized 09/11/2024 03/13/2026 1 1 Encounter Details Date Type Department Care Team (Latest Contact Info) Description 09/19/2024 12:00 PM EDT Procedure Visit [facility] Hematology/BMT and Cellular Therapy Program [address] [phone] Lexi Ferraro, RODDY [address] [facility] Cancer [address] [address] Acute myeloid leukemia not having [...] to surronding structures. Alternatives discussed: Delayed treatment Wilber protocol: Procedure explained and questions answered to [...] Upcoming Encounters Date Type Department Care Team ([facility] st Contact Info) Description 11/13/2024 1:00 PM EDT Clinical Support [facility] Hematology/BMT and Cellular Therapy Program [address] [phone] 11/13/2024 1:30 PM EDT Office Visit [facility] Hematology/BMT and Cellular Therapy Program [address] [phone] Zonia Hoffman APRN [address] [facility] [address] [place] [phone] 11/13/2024 3:00 PM EDT Appointment [facility] [address] [place] [address] 11/14/2024 1:00 PM EDT Appointment [facility] [address] [place] [address] 11/15/2024 1:00 PM EDT Appointment [facility] [address] [place] [address] 11/16/2024 1:00 PM EDT Appointment [facility] [address] [place] [address] 11/17/2024 3:00 PM EDT Appointment [facility] [address] [place] [address] 11/18/2024 3:00 PM EDT Appointment [facility] 1 [address] [place] [address] 11/19/2024 2:00 PM EDT Appointment [facility] [address] [place] [address] documented as of this encounter Procedures Procedure [...] to surronding structures. Alternatives discussed: Delayed treatment Wilber protocol: Procedure explained and questions answered to [...] Type Bone Marrow 09/24/2024 2:37 PM EDT [facility] Clinical Indication Myelodysplastic Syndrome 09/24/2024 2:37 PM EDT [facility] Specimen Adequacy Adequate 025 2:37 PM EDT [facility] Chromosome Analysis Result Giemsa-banded metaphase cells from unstimulated bone marrow cultures showed a 46,XX[20] chromosome pattern. 09/24/2024 2:37 PM EDT [facility] Interpretation Normal female chromosome analysis. No clonal abnormalities were detected at current resolution. Clinical correlation is recommended. # cells counted = 20 # cells analyzed = 20 # cells karyotyped = 2 Band resolution: 450-525 09/24/2024 2:37 PM EDT [facility] Pathologist Signature Reviewed by: Corey Tejada 09/24/2024 2:37 PM EDT [facility] Bone Marrow Non-blood Collection / Unknown 09/19/2024 7:29 AM EDT 09/19/2024 12:35 PM EDT us New Mckinney MD LAB CYTOGENETICS ORDERABLES F inal Result [facility] [address] [place] [address] * Myeloid Focused Panel, 50 gene (09/19/2024 7:29 AM EDT) Interpretation The following two (2) genes, TP53 and DNMT3A, with persistent variants have been detected in this bone marrow specimen. The variant, p.[id number], in TP53 gene and the variant, p.[id number], in the RUNX 1 gene are not detectable at current cutoff and coverage established in this lab. Gene: TP53 Mutation: c.814G>A; p.Vkq518Rhb Allele Frequency (%): 37% (45% Dec 2023) ID: [id number] Gene: DNMT3A Mutation: c.1522delC; p.[id number] 3 Allele Frequency (%): 36% (48% Dec 2023) Additional Details on Mutation Identified: Gene Transcript Genome Chrom Coordinate RefVar DNMT3A [id number] Hg19 2 [id number] delC TP53 [id number] Hg19 17 [id number] G>A 09/29/2024 4:05 PM EDT [facility] Methodology The following 50 genes [...] then sequenced on the Illumina NextSeq 2000 ([employer] [place]). A custom bioinformatics pipeline aligns [...] of hematologic malignancies. 09/29/2024 4:05 PM T [facility] Disclaimer This test was developed and its performance characteristics determined by the Clinical Molecular and Genomic Pathology Laboratory at the [facility]. It has not been cleared or [...] clinical laboratory testing. 09/29/2024 4:05 PM EDT [facility] Pathologist Signature Reviewed by: Corey Tejada 09/29/2024 4:05 PM [facility] Bone Marrow Specimen from bone marrow obtained by aspiration / Unknown Non-blood Collection / Unknown 09/19/2024 7:29 AM EDT 09/19/2024 12:03 PM EDT us New Mckinney MD LAB MOLECULAR DIAGNOSTICS ORD ERABLES Final Result [facility] [address] [place] [address], * Leukemia/Lymphoma - Immunophenotyping by Flow Cytometry (09/19/2024 7:29 AM EDT) Clinical Indication AML 09/22/2024 10:29 AM EDT [facility] Flow Cytometry Interpretation A. BONE MARROW FOR FLOW CYTOMETRY: - MIXED MARROW ELEMENTS WITH NO EVIDENCE OF INCREASED BLASTS OR ABNORMAL LYMPHOID POPULATIONS, SEE COMMENT. 09/22/2024 10:29 AM EDT [facility] Comments CD45/side scatter analysis shows a [...] surface light chains 09/22/2024 10:29 AM EDT [facility] Disclaimer This test was developed and its performance characteristics determined by the Immuno-Molecular Pathology Laboratory at the [facility]. It has not been cleared or [...] on the report. 09/22/2024 10:29 AM EDT [facility] Pathologist Signature Reviewed by: Lisandra Epstein MD 09/22/2024 10:29 AM EDT [facility] MRD Indicated Test Not Indicated 12/2024 10:29 AM EDT [facility] Bone Marrow Specimen from bone marrow obtained by aspiration / Unknown Non-blood Collection / Unknown 09/19/2024 7:29 AM EDT 09/19/2024 12:13 PM EDT us New Mckinney MD LAB FLOW CYTOMETRY ORDERABLES Final Result [facility] [address] [place] [address] * (ABNORMAL) CBC and differential (09/19/2024 7:29 AM EDT) WBC Count 2.70(L) 3.70 - 10.30 10*3/uL LAB HEMATOLOGY METHOD 09/19/2024 9:13 AM EDT [facility] RBC Count 1.86(L) 3.90 - 5.20 10*6/uL LAB HEMATOLOGY METHOD 09/19/2024 9:13 AM EDT [facility] HGB 7.1(L) 11.2 - 15.7 g/dL LAB HEMATOLOGY METHOD 09/19/2024 9:13 AM EDT [facility] HCT 21.5(L) 34.0 - 45.0 % LAB HEMATOLOGY METHOD 09/19/2024 9:13 AM EDT [facility] Platelet Count 14(LL) 155 - 369 10*3/uL LAB HEMATOLOGY METHOD 09/19/2024 9:13 AM EDT [facility] MCV 116(H) 79 - 98 fL LAB HEMATOLOGY METHOD 09/19/2024 9:13 AM EDT [facility] MCH 38.2(H) 26.0 - 32.0 pg LAB HEMATOLOGY METHOD 09/19/2024 9:13 AM EDT [facility] MCHC 33.0 30.7 - 35.5 g/dL LAB HEMATOLOGY METHOD 09/19/2024 9:13 AM EDT [facility] RDW 21.8(H) 11.5 - 14.5 % LAB HEMATOLOGY METHOD 09/19/2024 9:13 AM EDT [facility] MPV 13.5(H) 8.8 - 12.5 fL LAB HEMATOLOGY METHOD 09/19/2024 9:13 AM EDT [facility] nRBC 0.0 <=0.0 per 100 WBCs LAB HEMATOLOGY METHOD 09/19/2024 9:13 AM EDT [facility] Differential Type Automated LAB HEMATOLOGY METHOD 09/19/2024 9:13 AM EDT [facility] Neutrophils % 51 % LAB HEMATOLOGY METHOD 09/19/2024 9:13 AM EDT [facility] Lymphocytes % 41 % LAB HEMATOLOGY METHOD 09/19/2024 9:13 AM EDT [facility] Monocytes % 7 % LAB HEMATOLOGY METHOD 09/19/2024 9:13 AM EDT [facility] Eosinophils % 1 % LAB HEMATOLOGY METHOD 09/19/2024 9:13 AM EDT [facility] Basophils % 0 % LAB HEMATOLOGY METHOD 09/19/2024 9:13 AM EDT [facility] Immature Granulocytes % 0 % LAB HEMATOLOGY METHOD 09/19/2024 9:13 AM EDT [facility] Neutrophils Absolute 1.35(L) 1.60 - 6.10 10*3/uL LAB HEMATOLOGY METHOD 09/19/2024 9:13 AM EDT [facility] Lymphocytes Absolute 1.10(L) 1.20 - 3.90 10*3/uL LAB HEMATOLOGY METHOD 09/19/2024 9:13 AM EDT [facility] Monocytes Absolute 0.20(L) 0.30 - 0.90 10*3/uL LAB HEMATOLOGY METHOD 09/19/2024 9:13 AM EDT [facility] Eosinophils Absolute 0.03 0.00 - 0.50 10*3/uL LAB HEMATOLOGY METHOD 09/19/2024 9:13 AM EDT [facility] Basophils Absolute 0.01 0.00 - 0.10 10*3/uL LAB HEMATOLOGY METHOD 09/19/2024 9:13 AM EDT [facility] Immature Granulocytes Absolute 0.01 0.00 - 0.06 10*3/uL LAB HEMATOLOGY METHOD 09/19/2024 9:13 AM EDT [facility] Blood Blood sample taken from central line / Unknown (Port) Long-term Catheter / Unknown 09/19/2024 7:29 AM EDT 09/19/2024 8:08 AM EDT Narrative [facility] - 09/19/2024 9:13 AM EDT Therapeutic decision making should be based on absolute values, rather than percentages. us New Mckinney MD LAB BLOOD ORDERABLES Final Re sult [facility] [address] [place] [address] * Bone marrow exam (09/19/2024 7:29 AM EDT) Case Report Bone Marrow Case: [id number] Authorizing Provider: New Mckinney MD Collected: 09/19/2024 0729 Ordering Location: [facility] Hematology/BMT and Received: 09/19/2024 1216 Cellular Therapy Program Pathologist: Lisandra Epstein MD Specimens: A) - Bone Marrow Aspirate, right B) - Bone Marrow Biopsy, right C) - Peripheral Blood for Bone Marrow 3:15 PM EDT [facility] Cytogenetics Report, Addendum Chromosome Analysis Result Giemsa-banded metaphase cells from unstimulated bone marrow cultures showed a 46,XX[20] chromosome pattern. Interpretation Normal female chromosome analysis. No clonal abnormalities were detected at current resolution. Clinical correlation is recommended. 3:15 PM EDT [facility] Addendum electronically signed by Lisandra Epstein MD on 09/24/2024 at 1630 EDT Addendum Interpretation The following two (2) genes, TP53 and DNMT3A, with persistent variants have been detected in this bone marrow specimen. The variant, p.[id number], in TP53 gene and the variant, p.[id number], in the RUNX 1 gene are not detectable at current cutoff and coverage established in this lab. Gene: TP53 Mutation: c.814G>A; p.Xor474Pev Allele Frequency (%): 37% (45% Dec 2023) ID: [id number] Gene: DNMT3A Mutation: c.1522delC; p.[id number] 43 Allele Frequency (%): 36% (48% Dec 2023) Additional Details on Mutation Identified: 3:15 PM EDT [facility] Addendum electronically signed by Lisandra Epstein MD on 09/30/2024 at 1515 EDT Final Diagnosis PERIPHERAL BLOOD AND BONE MARROW, RIGHT POSTERIOR ILIAC CREST, (ASPIRATE SMEAR, AND CORE BIOPSY): - HYPOCELLULAR BONE MARROW WITH MARKEDLY DECREASED MEGAKARYOCYTES; NO SIGNIFICANT DYSPOIESIS OR INCREASE IN BLASTS. 3:15 PM EDT [facility] at 1453 EDT Clinical Information AML 09/14 3:15 PM EDT [facility] CBC and Differential PERIPHERAL BLOOD: 09/19/2024: [...] blasts are not seen. 3:15 PM EDT [facility] Bone Marrow Differential BONE MARROW DIFFERENTIAL: 200 cells Normal Patient Neutrophils 15-50 34 Metamyelocytes 4-19 3 Myelocytes 1-18 10 Promyelocytes 1-8 1 Blasts 0-2 1 Monocytes 0-5 4 Erythroid 16-38 22 Lymphocytes 3-24 13 Eosinophils 0-6 8 Basophils 0-2 0 Plasma cells 0-4 4 Other 3:15 PM EDT [facility] Bone Marrow Aspirate and Biopsy The [...] Bone trabeculae are unremarkable. 3:15 PM EDT [facility] Special and Immunohistochemical Stains Special Stain: A1-1 Vazquez-Giemsa A1-2 Vazquez-Giemsa A1-3 Vazquez-Giemsa C1-1 Vazquez-Giemsa IHC: B1-2 CD34 All controls show appropriate reactivity. All immunohistochemis try, in situ hybridization, and histochemical tests were developed by and are performed at the [facility], [address] [place] [address]. All tests reported here, except those addressing [...] negativity on decalcified specimens. 3:15 PM T [facility] Flow Cytometry Interpretation MIXED MARROW ELEMENTS WITH NO EVIDENCE OF INCREASED BLASTS OR ABNORMAL LYMPHOID POPULATIONS ([id number]). 3:15 PM EDT [facility] CYTOGENETICS/MOLECULA R INTERPRETATION Correlation with cytogenetic/molec ular analysis is suggested. 3:15 PM T [facility] Gross Description B. RIGHT A single specimen is received in formalin labeled bone marrow biopsy right posterior iliac crest and consists of 2 piece(s) of red/white tissue measuring 2.1/0.3 cm in length 0.2 cm in diameter. The specimen is submitted in to Histology for decalcification and routine processing. Cold Time: <1m 3:15 PM T [facility] Note: A resident was involved in the service. I attest I examined the relevant preparations for the specimens and confirmed the diagnosis or interpretation. 3:15 PM EDT [facility] Bone Marrow Peripheral blood specimen / [...] PATHOLOGY ORDERABLES Edit ed Result - Final [facility] [address] [place] [address] documented in this encounter Visit Diagnoses Diagnosis [...] as of this encounter Care Teams Web Retailer Relationship Specialty Start Date End Date Jevon Vazquez MD [address] [place] [address] #1 #1 JOSEP [place] [id number] PCP - General 03/23/22 documented as of this encounter
--- OUTSIDE RECORDS SUMMARY | 2024-09-30 09:00 | XMS_ITS | Encounter Summary ---
Author Organization Healthcare Address [address] [place] [address] Care Team Providers Care Cartridge Maker Name Role Phone Jevon Vazquez MD Primary Care Provider [phone] Reason for Visit * Reason Comments Labs Only Encounter Details Date Type Department Care Team ([facility] Contact Info) Description 09/30/2024 9:00 AM EDT Clinical Support [facility] Hematology/BMT and Cellular Therapy Program [address] [place] [phone] Jyoti Kemp Acute myeloid leukemia not having achieved remission [...] Upcoming Encounters Date Type Department Care Team ([facility] Contact Info) Description 11/13/2024 1:00 PM EDT Clinical Support [facility] Hematology/BMT and Cellular Therapy Program [address] [phone] 11/13/2024 1:30 PM EDT Office Visit [facility] Hematology/BMT and Cellular Therapy Program [address] [phone] Zonia Hoffman, BLOCK PAVER 800 [facility] [address] [place] [phone] 11/13/2024 3:00 PM EDT Appointment [facility] H Infusion [address] [place] [address] 11/14/2024 1:00 PM EDT Appointment [facility] Infusion [address] [place] [address] 11/15/2024 1:00 PM EDT Appointment [facility] Infusion [address] [place] [address] 11/16/2024 1:00 PM EDT Appointment [facility] Infusion [address] [place] [address] 11/17/2024 3:00 PM EDT Appointment [facility] 2 [address] [place] [address] 11/18/2024 3:00 PM EDT Appointment [facility] 1 [address] [place] [address] 11/19/2024 2:00 PM EDT Appointment [facility] 2 [address] [place] [address] documented as of this encounter Procedures Procedure Name Priority Date/Time Associated Diagnosis Comments CBC WITH AUTO DIFFERENTIAL Routine 09/30/2024 9:11 AM EDT 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) COMPREHENSIVE METABOLIC PANEL, PLASMA Routine 09/30/2024 9:11 AM EDT 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) documented in this encounter Results * (ABNORMAL) Comprehensive Metabolic Panel, Plasma (09/30/2024 9:11 AM EDT) Glucose, Plasma 135(H) 74 - 99 mg/dL 09/30/2024 10:20 AM EDT [facility] BUN, Plasma 21 8 - 23 mg/dL 09/30/2024 10:20 AM EDT [facility] Creatinine, Plasma 1.00 0.60 - 1.10 mg/dL 09/30/2024 10:20 AM EDT [facility] BUN/Creatinine Ratio 21 09/30/2024 10:20 AM EDT [facility] Sodium, Plasma 137 136 - 145 mmol/L 09/30/2024 10:20 AM EDT [facility] Potassium, Plasma 3.8 3.6 - 4.9 mmol/L 09/30/2024 10:20 AM EDT [facility] Chloride, Plasma 107 97 - 107 mmol/L 09/30/2024 10:20 AM EDT [facility] CO2, Plasma 22 22 - 29 mmol/L 09/30/2024 10:20 AM EDT [facility] Anion Gap 8 6 - 16 mmol/L 09/30/2024 10:20 AM EDT [facility] Total Calcium, Plasma 9.8 8.9 - 10.2 mg/dL 09/30/2024 10:20 AM EDT [facility] Total Protein 5.9(L) 6.3 - 7.9 g/dL 09/30/2024 10:20 AM EDT [facility] Albumin, Plasma 3.8 3.5 - 5.2 g/dL 09/30/2024 10:20 AM EDT [facility] AST, Plasma 28 10 - 35 U/L 09/30/2024 10:20 AM EDT [facility] ALT, Plasma 14 10 - 35 U/L 09/30/2024 10:20 AM EDT [facility] Alkaline Phosphatase, Plasma 34(L) 46 - 142 U/L 09/30/2024 10:20 AM EDT [facility] Total Bilirubin, Plasma 0.3 0.2 - 1.1 mg/dL 09/30/2024 10:20 AM EDT [facility] eGFRcr 59.6 mL/min/1.7 3m*2 09/30/2024 10:20 AM EDT [facility] Comment:Reported eGFRcr in m L/min/1.73m2 is based the CKD-EPI 2020 equation that does not use a race coefficient. Blood Venous blood specimen / Unknown (Port) Long-term Catheter / Unknown 09/30/2024 9:11 AM EDT 09/30/2024 9:50 AM EDT us Zonia Hardy [employer] BLOCK PAVER LAB BLOOD ORDERABLES Final Res ult [facility] [address] [place] [address] * (ABNORMAL) CBC and Differential (09/30/2024 9:11 AM EDT) WBC Count 3.34(L) 3.70 - 10.30 10*3/uL LAB HEMATOLOGY METHOD 09/30/2024 11:07 AM EDT [facility] RBC Count 1.91(L) 3.90 - 5.20 10*6/uL LAB HEMATOLOGY METHOD 09/30/2024 11:07 AM EDT [facility] HGB 7.7(L) 11.2 - 15.7 g/dL LAB HEMATOLOGY METHOD 09/30/2024 11:07 AM EDT [facility] HCT 22.8(L) 34.0 - 45.0 % LAB HEMATOLOGY METHOD 09/30/2024 11:07 AM EDT [facility] Platelet Count 17(LL) 155 - 369 10*3/uL LAB HEMATOLOGY METHOD 09/30/2024 11:07 AM EDT [facility] MCV 119(H) 79 - 98 fL LAB HEMATOLOGY METHOD 09/30/2024 11:07 AM EDT [facility] MCH 40.3(H) 26.0 - 32.0 pg LAB HEMATOLOGY METHOD 09/30/2024 11:07 AM EDT [facility] MCHC 33.8 30.7 - 35.5 g/dL LAB HEMATOLOGY METHOD 09/30/2024 11:07 AM EDT [facility] RDW 18.7(H) 11.5 - 14.5 % LAB HEMATOLOGY METHOD 09/30/2024 11:07 AM EDT [facility] MPV 11.1 8.8 - 12.5 fL LAB HEMATOLOGY METHOD 09/30/2024 11:07 AM EDT [facility] nRBC 0.0 <=0.0 per 100 WBCs LAB HEMATOLOGY METHOD 09/30/2024 11:07 AM EDT [facility] Differential Type Automated LAB HEMATOLOGY METHOD 09/30/2024 11:07 AM EDT [facility] Neutrophils % 65 % LAB HEMATOLOGY METHOD 09/30/2024 11:07 AM EDT [facility] Lymphocytes % 26 % LAB HEMATOLOGY METHOD 09/30/2024 11:07 AM EDT [facility] Monocytes % 7 % LAB HEMATOLOGY METHOD 09/30/2024 11:07 AM EDT [facility] Eosinophils % 1 % LAB HEMATOLOGY METHOD 09/30/2024 11:07 AM EDT [facility] Basophils % 1 % LAB HEMATOLOGY METHOD 09/30/2024 11:07 AM EDT [facility] Immature Granulocytes % 0 % LAB HEMATOLOGY METHOD 09/30/2024 11:07 AM EDT [facility] Neutrophils Absolute 2.17 1.60 - 6.10 10*3/uL LAB HEMATOLOGY METHOD 09/30/2024 11:07 AM EDT [facility] Lymphocytes Absolute 0.87(L) 1.20 - 3.90 10*3/uL LAB HEMATOLOGY METHOD 09/30/2024 11:07 AM EDT [facility] Monocytes Absolute 0.24(L) 0.30 - 0.90 10*3/uL LAB HEMATOLOGY METHOD 09/30/2024 11:07 AM EDT [facility] Eosinophils Absolute 0.03 0.00 - 0.50 10*3/uL LAB HEMATOLOGY METHOD 09/30/2024 11:07 AM EDT [facility] Basophils Absolute 0.02 0.00 - 0.10 10*3/uL LAB HEMATOLOGY METHOD 09/30/2024 11:07 AM EDT [facility] Immature Granulocytes Absolute 0.01 0.00 - 0.06 10*3/uL LAB HEMATOLOGY METHOD 09/30/2024 11:07 AM EDT [facility] Blood Venous blood specimen / Unknown (Port) Long-term Catheter / Unknown 09/30/2024 9:11 AM EDT 09/30/2024 9:34 AM EDT [facility] - 09/30/2024 11:07 AM EDT Therapeutic decision making should be based on absolute values, rather than percentages. 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
--- OUTSIDE RECORDS SUMMARY | 2024-09-30 09:30 | XMS_ITS | Encounter Summary ---
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 [address] [place] [phone] Acute myeloid leukemia not having achieved remission [...] Sign Reading Time Taken Comments Blood Pressure 126/70 09/30/2024 9:30 AM EDT Pulse 71 09/30/2024 9:30 AM EDT Temperature 36.8 C (98.2 F) 09/30/2024 9:30 AM EDT Respiratory Rate 16 09/30/2024 9:30 AM EDT Oxygen Saturation 97% 09/30/2024 9:30 AM EDT Inhaled Oxygen Concentration - - Weight 55.7 kg (122 lb 12.7 oz) 025 9:30 AM EDT Height - - Body Mass Index 21.07 09/19/2024 8:03 AM EDT documented in this encounter Miscellaneous Notes * Progress Notes - Zonia Hoffman, RODDY - 09/30/2024 9:30 AM EDT HEMATOLOGY ONCOLOGY NOTE Patient ID: Ashly Hernández is a 73 y.o. female. Referring Physician: Zonia Hoffman, GUARD DRIVER 800 [facility] [address] [phone] Primary Care Provider: Jevon Vazquez MD Chief Complaint: Chief Complaint Patient presents with Acute myeloid leukemia not having achieved remission Treatment Plan: Azacitidine Daily x 7 / Venetoclax Every 28 Days Subjective History of Present Illness: 73 y.o. female who presents for continued management of myelodysplastic syndrome/acute myeloid leukemia. Her history is as below: Current Outpatient Medications: acyclovir (Zovirax) 800 MG tablet, Take 1 tablet by mouth in the morning and 1 tablet before bedtime., Disp: 60 tablet, Rfl: 2 amLODIPine (Norvasc) 5 MG tablet, Take 1 tablet (5 mg) by mouth daily., Disp: , Rfl: fenofibrate (Tricor) 145 MG tablet, Take 1 tablet (145 mg) by mouth daily., Disp: , Rfl: fluconazole (Diflucan) 200 MG tablet, Take 2 tablets by mouth daily., Disp: 60 tablet, Rfl: 1 levoFLOXacin (Levaquin) 500 MG tablet, Take 1 tablet by mouth daily., Disp: 30 tablet, Rfl: 2 pioglitazone (Actos) 30 MG tablet, Take 1 tablet (30 mg) by mouth daily., Disp: , Rfl: potassium chloride CR (K-Tab) 20 MEQ ER tablet, Take 1 tablet by mouth twice daily, Disp: 60 tablet, Rfl: 0 prochlorperazine (Compazine) 10 MG tablet, Take 1 tablet (10 mg) by mouth every 6 (six) hours if needed for nausea or vomiting., Disp: 30 tablet, Rfl: 5 rosuvastatin (Crestor) 5 MG tablet, TAKE 1 TABLET BY MOUTH ONCE DAILY AT NIGHT, Disp: 30 tablet, Rfl: 2 lidocaine-prilocaine (Emla) 2.5-2.5 % cream, Please apply to port area 30-45 min prior to access (Patient not taking: Reported on 09/30/2024), Disp: 30 g, Rfl: 2 venetoclax (Venclexta) 100 MG tablet, Take 2 tablets (200 mg) by mouth 1 (one) time each day. Take on days 1 - 21 (7 days off) of a 28 day cycle. (Patient not taking: Reported on 09/30/2024), Disp: 42tablet, Rfl: 0 History: Oncology History Overview Note 09/2023- routine labs showed mild pancytopenia, with a WBC 2.3 k/??L, Hb 10.2 g/dL, and platelets of70 k/??L. 12/2023- seen by Dr. Manzano in [facility] for evaluation of anemia and lymphocytosis. 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 Next generation sequencing: Abnormal: TP53 (c.814G>A; p.[id number]) frequency 45%, DMNT3A (c.1522delC; p.[id number]) frequency 48%, RUNX1 (c.336_338delGCC; p.Zbx211adi) frequency 35% Azacitidine + Venetoclax Cycle 1: [...] Surgical History: Procedure Laterality Date BACK SURGERY 2022 CHOLECYSTECTOMY COLONOSCOPY HYSTERECTOMY LAMINECTOMY LUMBAR FUSION L3-4 [...] History: Ms. Ashly Hernández presents to clinic 09/30/2024 for pre-chemotherapy evaluation prior to planned Azacitidine and Venetoclax. She is feeling well with the exception of fatigue. Denies fever or infection, shortness of breath, n/v/d. Review of Systems 14- point ROS is reviewed and negative except in HPI. Objective Physical Exam: Vitals: 09/30/24 0930 BP: 126/70 Pulse: 71 Resp: 16 Temp: 36.8 ??C (98.2 ??F) SpO2: 97% Physical Examination: Physical Examination: General: appears stated age, no acute distress Skin: No rashes, no lesions. Head: normocephalic, atraumatic. Eyes: EOMI. Conjunctivae are pink and moist, non-erythematous. Sclera anicteric, noninjected. Lymph Nodes: No lymphadenopathy. Pulmonary: Breathing is non-labored. No cough. Lung sounds are CTA throughout bilaterally, no wheezes, rhonchi or crackles. Cardiovascular: regular heart rate and rhythm. No murmurs/rubs. Abdomen: Soft/non-tender/non-distended. Normal bowel sounds present throughout. Extremities: No peripheral edema. No calf tenderness. [...] Delayed 2 weeks due to thrombocytopenia Plan: -Repeat bone marrow biopsy on 09/19/24 showed hypocellular marrow with no evidence of leukemia. MFP with TP53 and DNMT3A. -Continue to delay Aza/Gaston C3D1 by 2 additional weeks due to continued thrombocytopenia. . - Continue local lab checks MWF at [facility] Allogenic transplant planning. 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 However, given her older age > 70, she would benefit from a geriatric BMT program and will make referrals should she be interested. Expected pancytopenia related to chemotherapy/AML. Check CBC x 3 times/week at [facility] Labs reviewed today, Hgb 7.7 , platelets 15, no transfusions today. - Supportive transfusions with irradiated, leukocyte reduced, CMV safe blood products: transfuse 1 unit of pRBC for hemoglobin </= 7 - will send orders for 1 unit PRBCs on 10/01/24 due to extreme fatigue from anemia transfuse 1 unit of platelets for platelet count </= 10,000 Immunosuppressed due to AML/chemotherapy. Continue prophylactic acyclovir, and levofloxacin, fluconazole Vascular access. S/p port placement. Routine care per protocol I spent 45 minutes examining and counseling the patient, reviewing previous charts, reviewing results, and documenting. RODDY Cristina [facility] HEMATOLOGY/BMT AND CELLULAR THERAPY PROGRAM [address] [facility] [phone] 40 minutes was spent on this encounter; [...] Upcoming Encounters Date Type Department Care Team ([facility] st Contact Info) Description 11/13/2024 1:00 PM EDT Clinical Support [facility] Hematology/BMT and Cellular Therapy Program 750 [facility], [address] [place] [address] [place] [address] 11/13/2024 1:30 PM EDT Office Visit [facility] Hematology/BMT and Cellular Therapy Program [address] [place] [address] Zonia Hoffman, GUARD DRIVER 800 [facility] [address] [place] [phone] 11/13/2024 3:00 PM EDT Appointment [facility] [address] [place] [address] 11/14/2024 1:00 PM EDT Appointment [facility] [address] [place] [address] 11/15/2024 1:00 PM EDT Appointment [facility] [address] [place] [address] 11/16/2024 1:00 PM EDT Appointment [facility] [address] [place] [address] 11/17/2024 3:00 PM EDT Appointment [facility] 2 [address] [place] [address] 11/18/2024 3:00 PM EDT Appointment [facility] 1 [address] [place] [address] 11/19/2024 2:00 PM EDT Appointment [facility] 2 [address] [place] [phone] documented as of this encounter Results * (ABNORMAL) Comprehensive Metabolic Panel, Plasma (09/30/2024 9:11 AM EDT) [facility] Glucose, Plasma 135(H) 74 - 99 mg/dL 09/30/2024 10:20 AM EDT [facility] BUN, Plasma 21 8 - 23 mg/dL 09/30/2024 10:20 AM EDT [facility] Creatinine, Plasma 1.00 0.60 - 1.10 mg/dL 09/30/2024 10:20 AM EDT [facility] BUN/Creatinine Ratio 21 09/30/2024 10:20 AM EDT [facility] Sodium, Plasma 137 136 - 145 mmol/L 09/30/2024 10:20 AM EDT [facility] Potassium, Plasma 3.8 3.6 - 4.9 mmol/L 09/30/2024 10:20 AM EDT [facility] Chloride, Plasma 107 97 - 107 mmol/L 09/30/2024 10:20 AM EDT [facility] CO2, Plasma 22 22 - 29 mmol/L 09/30/2024 10:20 AM EDT [facility] Anion Gap 8 6 - 16 mmol/L 09/30/2024 10:20 AM EDT [facility] Total Calcium, Plasma 9.8 8.9 - 10.2 mg/dL 09/30/2024 10:20 AM EDT [facility] Total Protein 5.9(L) 6.3 - 7.9 g/dL 09/30/2024 10:20 AM EDT [facility] Albumin, Plasma 3.8 3.5 - 5.2 g/dL 09/30/2024 10:20 AM EDT [facility] AST, Plasma 28 10 - 35 U/L 09/30/2024 10:20 AM EDT [facility] ALT, Plasma 14 10 - 35 U/L 09/30/2024 10:20 AM EDT [facility] Alkaline Phosphatase, Plasma 34(L) 46 - 142 U/L 09/30/2024 10:20 AM EDT [facility] Total Bilirubin, Plasma 0.3 0.2 - 1.1 mg/dL 09/30/2024 10:20 AM EDT [facility] eGFRcr 59.6 mL/min/1.7 3m*2 09/30/2024 10:20 AM EDT [facility] Comment:Reported eGFRcr in m L/min/1.73m2 is based the CKD-EPI 2020 equation that does not use a race coefficient. Blood Venous blood specimen / Unknown (Port) Long-term Catheter / Unknown 09/30/2024 9:11 AM EDT 09/30/2024 9:50 AM EDT us Zonia Hoffman APRN LAB BLOOD ORDERABLES Final Res ult [facility] [address] [place] [address] * (ABNORMAL) CBC and Differential (09/30/2024 9:11 AM EDT) WBC Count 3.34(L) 3.70 - 10.30 10*3/uL LAB HEMATOLOGY METHOD 09/30/2024 11:07 AM EDT [facility] RBC Count 1.91(L) 3.90 - 5.20 10*6/uL LAB HEMATOLOGY METHOD 09/30/2024 11:07 AM EDT [facility] HGB 7.7(L) 11.2 - 15.7 g/dL LAB HEMATOLOGY METHOD 09/30/2024 11:07 AM EDT [facility] HCT 22.8(L) 34.0 - 45.0 % LAB HEMATOLOGY METHOD 09/30/2024 11:07 AM EDT [facility] Platelet Count 17(LL) 155 - 369 10*3/uL LAB HEMATOLOGY METHOD 09/30/2024 11:07 AM EDT [facility] MCV 119(H) 79 - 98 fL LAB HEMATOLOGY METHOD 09/30/2024 11:07 AM EDT [facility] MCH 40.3(H) 26.0 - 32.0 pg LAB HEMATOLOGY METHOD 09/30/2024 11:07 AM EDT [facility] MCHC 33.8 30.7 - 35.5 g/dL LAB HEMATOLOGY METHOD 09/30/2024 11:07 AM EDT [facility] RDW 18.7(H) 11.5 - 14.5 % LAB HEMATOLOGY METHOD 09/30/2024 11:07 AM EDT [facility] MPV 11.1 8.8 - 12.5 fL LAB HEMATOLOGY METHOD 09/30/2024 11:07 AM EDT [facility] nRBC 0.0 <=0.0 per 100 WBCs LAB HEMATOLOGY METHOD 09/30/2024 11:07 AM EDT [facility] Differential Type Automated LAB HEMATOLOGY METHOD 09/30/2024 11:07 AM EDT [facility] Neutrophils % 65 % LAB HEMATOLOGY METHOD 09/30/2024 11:07 AM EDT [facility] Lymphocytes % 26 % LAB HEMATOLOGY METHOD 09/30/2024 11:07 AM EDT [facility] Monocytes % 7 % LAB HEMATOLOGY METHOD 09/30/2024 11:07 AM EDT [facility] Eosinophils % 1 % LAB HEMATOLOGY METHOD 09/30/2024 11:07 AM EDT [facility] Basophils % 1 % LAB HEMATOLOGY METHOD 09/30/2024 11:07 AM EDT [facility] Immature Granulocytes % 0 % LAB HEMATOLOGY METHOD 09/30/2024 11:07 AM EDT [facility] Neutrophils Absolute 2.17 1.60 - 6.10 10*3/uL LAB HEMATOLOGY METHOD 09/30/2024 11:07 AM EDT [facility] Lymphocytes Absolute 0.87(L) 1.20 - 3.90 10*3/uL LAB HEMATOLOGY METHOD 09/30/2024 11:07 AM EDT [facility] Monocytes Absolute 0.24(L) 0.30 - 0.90 10*3/uL LAB HEMATOLOGY METHOD 09/30/2024 11:07 AM EDT [facility] Eosinophils Absolute 0.03 0.00 - 0.50 10*3/uL LAB HEMATOLOGY METHOD 09/30/2024 11:07 AM EDT [facility] Basophils Absolute 0.02 0.00 - 0.10 10*3/uL LAB HEMATOLOGY METHOD 09/30/2024 11:07 AM EDT [facility] Immature Granulocytes Absolute 0.01 0.00 - 0.06 10*3/uL LAB HEMATOLOGY METHOD 09/30/2024 11:07 AM EDT [facility] Blood Venous blood specimen / Unknown (Port) Long-term Catheter / Unknown 09/30/2024 9:11 AM EDT 09/30/2024 9:34 AM EDT Narrative [facility] - 09/30/2024 11:07 AM EDT Therapeutic decision making should be based on absolute values, rather than percentages. us Zonia Hoffman APRN LAB BLOOD ORDERABLES Final Res ult [facility] [address] [place] [address] documented in this encounter Visit Diagnoses Diagnosis [...] documented as of this encounter Care Teams College Associate Relationship Specialty Start Date End Date Jevon Vazquez MD [address] [place] [address] #1 #1 [id number] PCP - General 03/23/22 documented as of this encounter
--- OUTSIDE RECORDS SUMMARY | 2024-11-12 09:01 | XMS_ITS | Encounter Summary ---
Author Organization Healthcare Address [address] [place] [address] Care Team Providers Care Pen Rider Name Role Phone Jevon Vazquez MD Primary Care Provider [phone] Encounter Details Date Type Department Care Team [...] Hematology/BMT and Cellular Therapy Program [address] [address] 11/13/2024 1:30 PM EDT Office Visit [facility] Hematology/BMT and Cellular Therapy Program [address] [address] Zonia Hoffman, RODDY 800 [facility] [address] [place] [address] 11/13/2024 3:00 PM EDT Appointment [facility] Infusion 800 [place] [address] 11/14/2024 1:00 PM EDT Appointment [facility] [address] [place] [address] 11/15/2024 1:00 PM EDT Appointment [facility] 800 [place] [address] 11/16/2024 1:00 PM EDT Appointment [facility] 800 [place] [address] 11/17/2024 3:00 PM EDT Appointment [facility] 2 744 [place] [address] 11/18/2024 3:00 PM EDT Appointment [facility] 1 [address] [place] [address] 11/19/2024 2:00 PM EDT Appointment [facility] 2 [address] [place] [address] documented as of this encounter Visit Diagnoses Not on filedocumented in this encounter Additional Health Concerns Assessment Noted Time A fall risk assessment has been complete d for the patient 07/30/2024 8:29 AM EDT A Body Mass Index follow-up plan has been documented for the patient 05/28/2024 1:52 PM EST documented as of this encounter Care Teams Pen Rider Relationship Specialty Start Date End Date Jevon Vazquez MD [address] [place] [address] #1 #1 Julien JOSEP [address] PCP - General 03/23/22 documented as of this encounter
--- OUTSIDE RECORDS SUMMARY | 2024-11-12 09:01 | XMS_ITS | Encounter Summary ---
Author Organization Healthcare Address [address] [place] [address] Care Team Providers Care Purchasing Buyer Name Role Phone Jevon Vazquez MD Primary Care Provider [phone] Encounter Details Date Type Department Care Team [...] Hematology/BMT and Cellular Therapy Program [address] [address] 11/13/2024 1:30 PM EDT Office Visit [facility] Hematology/BMT and Cellular Therapy Program [address] [address] Zonia Hoffman, RODDY 800 [facility] [address] [place] [address] 11/13/2024 3:00 PM EDT Appointment [facility] Infusion 800 [place] [address] 11/14/2024 1:00 PM EDT Appointment [facility] [address] [place] [address] 11/15/2024 1:00 PM EDT Appointment [facility] 800 [place] [address] 11/16/2024 1:00 PM EDT Appointment [facility] [address] [place] [address] 11/17/2024 3:00 PM EDT Appointment [facility] 2 [address] [place] [address] 11/18/2024 3:00 PM EDT Appointment [facility] 1 [address] [place] [address] 11/19/2024 2:00 PM EDT Appointment [facility] 2 [address] [place] [address] documented as of this encounter Visit Diagnoses Not on filedocumented in this encounter Additional Health Concerns Assessment Noted Time A fall risk assessment has been complete d for the patient 09/30/2024 9:33 AM EDT A Body Mass Index follow-up plan has been documented for the patient 05/28/2024 1:52 PM EST documented as of this encounter Care Teams Purchasing Buyer Relationship Specialty Start Date End Date Jevon Vazquez MD [address] [place] [address] #1 #1 Julien JOSEP [address] PCP - General 03/23/22 documented as of this encounter
--- OUTSIDE RECORDS SUMMARY | 2024-11-12 09:01 | XMS_ITS | Encounter Summary ---
Author Organization Healthcare Address [address] [place] [address] Care Team Providers Care Clinical Unit Coordinator Name Role Phone Jevon Vazquez MD [...] Hematology/BMT and Cellular Therapy Program [address] [address] 11/13/2024 1:30 PM EDT Office Visit [facility] Hematology/BMT and Cellular Therapy Program [address] [address] Zonia Hoffman, RODDY 800 [facility] [address] [place] [address] 11/13/2024 3:00 PM EDT Appointment [facility] Infusion 800 [place] [address] 11/14/2024 1:00 PM EDT Appointment [facility] [address] [place] [address] 11/15/2024 1:00 PM EDT Appointment [facility] [address] [place] [address] 11/16/2024 1:00 PM EDT Appointment [facility] [address] [place] [address] 11/17/2024 3:00 PM EDT Appointment [facility] 2 [address] [place] [address] 11/18/2024 3:00 PM EDT Appointment [facility] 1 [address] [place] [address] 11/19/2024 2:00 PM EDT Appointment [facility] 2 [address] [place] [address] documented as of this encounter Visit Diagnoses Not on filedocumented in this encounter Additional Health Concerns Assessment Noted Time A fall risk assessment has been complete d for the patient 09/30/2024 9:33 AM EDT A Body Mass Index follow-up plan has been documented for the patient 05/28/2024 1:52 PM EST documented as of this encounter Care Teams Clinical Unit Coordinator Relationship Specialty Start Date End Date Jevon Vazquez MD [address] [place] [address] #1 #1 Julien JOSEP [address] PCP - General 03/23/22 documented as of this encounter
--- OUTSIDE RECORDS SUMMARY | 2024-11-12 09:01 | XMS_ITS | Encounter Summary ---
Author Organization [facility] Address [address] [place] [address] Care Team Providers Care Hydrometeorology Teacher Name Role Phone Jevon Vazquez MD Primary Care Provider [phone] Reason for Visit * Reason Comments Med Refill Encounter Details Date Type Department Care Team ([facility] Contact Info) Description 01/30/2024 Refill [facility] Hematology/BMT and Cellular Therapy Program [address] [phone] [place] MD 800 [facility] [address] [place] [address] Social History Tobacco Use Types Packs/Day Years [...] Upcoming Encounters Date Type Department Care Team ([facility] Contact Info) Description 11/13/2024 1:00 PM EDT Clinical Support [facility] Hematology/BMT and Cellular Therapy Program [address] [place] [address] 11/13/2024 1:30 PM EDT Office Visit [facility] Hematology/BMT and Cellular Therapy Program [address] [address] Zonia Hoffman, BOARDER STEAM 800 [facility] [address] [place] [address] 11/13/2024 3:00 PM EDT Appointment [facility] 800 [place] [address] 11/14/2024 1:00 PM EDT Appointment [facility] [address] [place] [address] 11/15/2024 1:00 PM EDT Appointment [facility] [address] [place] [address] 11/16/2024 1:00 PM EDT Appointment [facility] [address] [place] [address] 11/17/2024 3:00 PM EDT Appointment [facility] 2 [address] [place] [address] 11/18/2024 3:00 PM EDT Appointment [facility] 1 [address] [place] [address] 11/19/2024 2:00 PM EDT Appointment [facility] 2 [address] [place] [address] documented as of this encounter Visit Diagnoses Not on filedocumented in this encounter Additional Health Concerns Assessment Noted Time A fall risk assessment has been complete d for the patient 01/11/2024 9:16 AM EDT A Body Mass Index follow-up plan has been documented for the patient 01/21/2024 6:16 AM EDT documented as of this encounter Care Teams Hydrometeorology Teacher Relationship Specialty Start Date End Date Jevon Vazquez MD [address] [place] [address] #1 #1 TobyhannaJOSEP [address] PCP - General 03/23/22 documented as of this encounter
--- OUTSIDE RECORDS SUMMARY | 2024-11-12 09:01 | XMS_ITS | Encounter Summary ---
Author Organization [facility] Address [address] [place] [address] Care Team Providers Care Yarder Boss Name Role Phone Jevon Vazquez MD Primary Care Provider [phone] Encounter Details Date Type Department Care Team ([facility] Contact Info) Description 10/29/2024 Refill [facility] Hematology/BMT and Cellular Therapy Program [address] [phone] Zonia Hoffman, SPINNER OPEN END 800 [facility] [address] [place] [phone] Acute myeloid leukemia not having achieved remission [...] Team ([facility] Contact Info) Description 11/13/2024 1:00 PM EDT Clinical Support [facility] Hematology/BMT and Cellular Therapy Program [address] [address] 11/13/2024 1:30 PM EDT Office Visit [facility] Hematology/BMT and Cellular Therapy Program [address] [place] [address] Zonia Hoffman, SPINNER OPEN END 800 [facility] [address] [place] [address] 11/13/2024 3:00 PM EDT Appointment [facility] Infusion [address] [place] [address] 11/14/2024 1:00 PM EDT Appointment [facility] [address] [place] [address] 11/15/2024 1:00 PM EDT Appointment [facility] [address] [place] [address] 11/16/2024 1:00 PM EDT Appointment [facility] [address] [place] [address] 11/17/2024 3:00 PM EDT Appointment [facility] 2 [address] [place] [address] 11/18/2024 3:00 PM EDT Appointment [facility] 1 [address] [place] [address] 11/19/2024 2:00 PM EDT Appointment [facility] 2 [address] [place] [address] documented as of this encounter Visit Diagnoses [...] documented as of this encounter Care Teams Yarder Boss Relationship Specialty Start Date End Date Jevon Vazquez MD [address] [place] [address] #1 #1 [place] [address] PCP - General 03/23/22 documented as of this encounter
--- OUTSIDE RECORDS SUMMARY | 2024-11-12 09:01 | XMS_ITS | Encounter Summary ---
Author Organization [facility] Address [address] [place] [address] Care Team Providers Care Meal Temperer Name Role Phone Jevon Vazquez MD Primary Care Provider [phone] Encounter Details Date Type Department Care Team ([facility] Contact Info) Description 09/19/2024 Telephone [facility] CC Hematology/BMT and Cellular Therapy Program [address] [place] [address] Romana Richmond RN [facility] Social History Tobacco [...] Encounters Date Type Department Care Team ([facility] Contact Info) Description 11/13/2024 1:00 PM EDT Clinical Support [facility] Hematology/BMT and Cellular Therapy Program [address] [place] [address] 11/13/2024 1:30 PM EDT Office Visit [facility] Hematology/BMT and Cellular Therapy Program 750 [facility] [address] [place] [address] Zonia Hoffman, OPTICAL MECHANIC APPRENTICE 800 [facility] [address] [place] [address] 11/13/2024 3:00 PM EDT Appointment [facility] Infusion [address] [place] [address] 11/14/2024 1:00 PM EDT Appointment [facility]fusion [address] [place] [address] 11/15/2024 1:00 PM EDT Appointment [facility]fusion [address] [place] [address] 11/16/2024 1:00 PM EDT Appointment [facility] [address] [place] [address] 11/17/2024 3:00 PM EDT Appointment [facility] 2 [address] [place] [address] 11/18/2024 3:00 PM EDT Appointment [facility] 1 [address] [place] [address] 11/19/2024 2:00 PM EDT Appointment [facility] 2 [address] [place] [address] documented as of this encounter Visit Diagnoses Not on filedocumented in this encounter Additional Health Concerns Assessment Noted Time A fall risk assessment has been complete d for the patient 09/19/2024 8:38 AM EDT A Body Mass Index follow-up plan has been documented for the patient 05/28/2024 1:52 PM EST documented as of this encounter Care Teams Meal Temperer Relationship Specialty Start Date End Date Jevon Vazquez MD [address] [place] [address] #1 #1 [place]umar [id number] PCP - General 03/23/22 documented as of this encounter
--- OUTSIDE RECORDS SUMMARY | 2024-11-12 09:01 | XMS_ITS | Encounter Summary ---
Author Organization [facility] Address [address] [place] [address] Care Team Providers Care Mechatronics Technician Name Role Phone Jevon Vazquez MD Primary Care Provider [phone] Encounter Details Date Type Department Care Team [...] Hematology/BMT and Cellular Therapy Program [address] [address] 11/13/2024 1:30 PM EDT Office Visit [facility] Hematology/BMT and Cellular Therapy Program [address] [address] Zonia Hoffman, RODDY 800 [facility] [address] [place] [address] 11/13/2024 3:00 PM EDT Appointment [facility] Infusion [address] [place] [address] 11/14/2024 1:00 PM EDT Appointment [facility] [address] [place] [address] 11/15/2024 1:00 PM EDT Appointment [facility] [address] [place] [address] 11/16/2024 1:00 PM EDT Appointment [facility] [address] [place] [address] 11/17/2024 3:00 PM EDT Appointment [facility] 2 [address] [place] [address] 11/18/2024 3:00 PM EDT Appointment [facility] 1 [address] [place] [address] 11/19/2024 2:00 PM EDT Appointment [facility] 2 [address] [place] [address] documented as of this encounter Visit Diagnoses Not on filedocumented in this encounter Additional Health Concerns Assessment Noted Time A fall risk assessment has been complete d for the patient 07/30/2024 8:29 AM EDT A Body Mass Index follow-up plan has been documented for the patient 05/28/2024 1:52 PM EST documented as of this encounter Care Teams Mechatronics Technician Relationship Specialty Start Date End Date Jevon Vazquez MD [address] [place] [address] #1 #1 Julien JOSEP [id number] PCP - General 03/23/22 documented as of this encounter
--- OUTSIDE RECORDS SUMMARY | 2024-11-12 09:01 | XMS_ITS | Encounter Summary ---
Author Organization [facility] Address [address] [place] [address] Care Team Providers Care Net Developer Architect Name Role Phone Jevon Vazquez MD Primary Care Provider [phone] Encounter Details Date Type Department Care Team [...] Hematology/BMT and Cellular Therapy Program [address] [address] 11/13/2024 1:30 PM EDT Office Visit [facility] Hematology/BMT and Cellular Therapy Program [address] [address] Zonia Hoffman, RODDY 800 [facility] [address] [place] [address] 11/13/2024 3:00 PM EDT Appointment [facility] Infusion [address] [place] [address] 11/14/2024 1:00 PM EDT Appointment [facility] [address] [place] [address] 11/15/2024 1:00 PM EDT Appointment [facility]fusion [address] [place] [address] 11/16/2024 1:00 PM EDT Appointment [facility] [address] [place] [address] 11/17/2024 3:00 PM EDT Appointment [facility] 2 [address] [place] [address] 11/18/2024 3:00 PM EDT Appointment [facility] 1 [address] [place] [address] 11/19/2024 2:00 PM EDT Appointment [facility] 2 [address] [place] [address] documented as of this encounter Visit Diagnoses Not on filedocumented in this encounter Additional Health Concerns Assessment Noted Time A fall risk assessment has been complete d for the patient 09/19/2024 8:38 AM EDT A Body Mass Index follow-up plan has been documented for the patient 05/28/2024 1:52 PM EST documented as of this encounter Care Teams Net Developer Architect Relationship Specialty Start Date End Date Jevon Vazquez MD [address] [place] [address] #1 #1 Julien JOSEP [id number] PCP - General 03/23/22 documented as of this encounter
--- OUTSIDE RECORDS SUMMARY | 2024-11-12 09:01 | XMS_ITS ---
Author Organization [facility] Address [address] [place] [address] Care Team Providers Care Steel Cutter Name Role Phone Jevon Vazquez MD Primary Care Provider [phone] Active Problems Problem Noted Date Diagnosed Date [...]
--- OUTSIDE RECORDS SUMMARY | 2024-11-12 09:01 | XMS_ITS | Encounter Summary ---
Author Organization Healthcare Address [address] [place] [address] Care Team Providers Care Driver/Merchandiser Name Role Phone Jevon Vazquez MD Primary Care Provider [phone] Encounter Details Date Type Department Care Team [...] Hematology/BMT and Cellular Therapy Program [address] [address] 11/13/2024 1:30 PM EDT Office Visit [facility] Hematology/BMT and Cellular Therapy Program [address] [address] Zonia Hoffman, RODDY 800 [facility] [address] [place] [address] 11/13/2024 3:00 PM EDT Appointment [facility] Infusion 800 [place] [address] 11/14/2024 1:00 PM EDT Appointment [facility]fusion [address] [place] [address] 11/15/2024 1:00 PM EDT Appointment [facility] [address] [place] [address] 11/16/2024 1:00 PM EDT Appointment [facility] [address] [place] [address] 11/17/2024 3:00 PM EDT Appointment [facility] 2 [address] [place] [address] 11/18/2024 3:00 PM EDT Appointment [facility] 1 [address] [place] [address] 11/19/2024 2:00 PM EDT Appointment [facility] 2 [address] [place] [address] documented as of this encounter Visit Diagnoses Not on filedocumented in this encounter Additional Health Concerns Assessment Noted Time A fall risk assessment has been complete d for the patient 09/30/2024 9:33 AM EDT A Body Mass Index follow-up plan has been documented for the patient 05/28/2024 1:52 PM EST documented as of this encounter Care Teams Driver/Merchandiser Relationship Specialty Start Date End Date Jevon Vazquez MD [address] [place] [address] #1 #1 Julien JOSEP [id number] PCP - General 03/23/22 documented as of this encounter
--- OUTSIDE RECORDS SUMMARY | 2024-11-12 09:01 | XMS_ITS | Encounter Summary ---
Author Organization [facility] Address [address] [place] [address] Care Team Providers Care Pamphlet Distributor Name Role Phone Jevon Vazquez MD Primary Care Provider [phone] Encounter Details Date Type Department Care Team ([facility] Contact Info) Description 09/15/2024 Telephone [facility] CC Hematology/BMT and Cellular Therapy Program [address] [phone] Zonia Hoffman, UNIVERSAL BRANCH CONSULTANT 800 [facility] [address] [place] [address] Social History Tobacco Use Types Packs/Day Years [...] ([facility] Contact Info) Description 11/13/2024 1:00 PM EDT Clinical Support [facility] CC Hematology/BMT and Cellular Therapy Program [address] [phone] 11/13/2024 1:30 PM EDT Office Visit [facility] CC Hematology/BMT and Cellular Therapy Program [address] [phone] Zonia Hoffman, UNIVERSAL BRANCH CONSULTANT 800 [facility] [address] [place] [address] 11/13/2024 3:00 PM EDT Appointment [facility] Infusion 800 [place] [address] 11/14/2024 1:00 PM EDT Appointment [facility]fusion [address] [place] [address] 11/15/2024 1:00 PM EDT Appointment [facility] [address] [place] [address] 11/16/2024 1:00 PM EDT Appointment [facility]fusion [address] [place] [address] 11/17/2024 3:00 PM EDT Appointment [facility] 2 [address] [place] [address] 11/18/2024 3:00 PM EDT Appointment [facility] 1 [address] [place] [address] 11/19/2024 2:00 PM EDT Appointment [facility] 2 [address] [place] [address] documented as of this encounter Visit Diagnoses Not on filedocumented in this encounter Additional Health Concerns Assessment Noted Time A fall risk assessment has been complete d for the patient 07/30/2024 8:29 AM EDT A Body Mass Index follow-up plan has been documented for the patient 05/28/2024 1:52 PM EST documented as of this encounter Care Teams Pamphlet Distributor Relationship Specialty Start Date End Date Jevon Vazquez MD [address] [place] [address] #1 #1 Julien JOSEP [id number] PCP - General 03/23/22 documented as of this encounter
--- OUTSIDE RECORDS SUMMARY | 2024-11-12 09:01 | XMS_ITS | Encounter Summary ---
Author Organization [facility] Address [address] [place] [address] Care Team Providers Care 8Th Grade Teacher Name Role Phone Jevon Vazquez MD Primary Care Provider [phone] Encounter Details Date Type Department Care Team [...] Hematology/BMT and Cellular Therapy Program [address] [address] 11/13/2024 1:30 PM EDT Office Visit [facility] CC Hematology/BMT and Cellular Therapy Program [address] [address] Zonia Hoffman, RODDY 800 [facility] [address] [place] [address] 11/13/2024 3:00 PM EDT Appointment [facility] Infusion 800 [place] [address] 11/14/2024 1:00 PM EDT Appointment [facility]fusion [address] [place] [address] 11/15/2024 1:00 PM EDT Appointment [facility]fusion [address] [place] [address] 11/16/2024 1:00 PM EDT Appointment [facility] Infusion [address] [place] [address] 11/17/2024 3:00 PM EDT Appointment [facility] 2 [address] [place] [address] 11/18/2024 3:00 PM EDT Appointment [facility] 1 [address] [place] [address] 11/19/2024 2:00 PM EDT Appointment [facility] 2 [address] [place] [address] documented as of this encounter Visit Diagnoses Not on filedocumented in this encounter Additional Health Concerns Assessment Noted Time A fall risk assessment has been complete d for the patient 07/30/2024 8:29 AM EDT A Body Mass Index follow-up plan has been documented for the patient 05/28/2024 1:52 PM EST documented as of this encounter Care Teams 8Th Grade Teacher Relationship Specialty Start Date End Date Jevon Vazquez MD [address] [place] [address] #1 #1 Julien JOSEP [id number] PCP - General 03/23/22 documented as of this encounter
--- OUTSIDE RECORDS SUMMARY | 2024-11-12 09:01 | XMS_ITS | Encounter Summary ---
Author Organization [facility] Address [address] [place] [address] Care Team Providers Care Logging Equipment Operator Name Role Phone Jevon Vazquez MD Primary Care Provider [phone] Encounter Details Date Type Department Care Team ([facility] Contact Info) Description 09/19/2024 Orders Only P[facility] CC Hematology/BMT and Cellular Therapy Program [address] [phone] 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, RN [facility] Social History [...] ([facility] Contact Info) Description 11/13/2024 1:00 PM EDT Clinical Support P[facility] CC Hematology/BMT and Cellular Therapy Program [address] [phone] 11/13/2024 1:30 PM EDT Office Visit [facility] CC Hematology/BMT and Cellular Therapy Program [address] [phone] Zonia Hoffman, WARP SCOURING VAT TENDER 800 [facility] [address] [place] [address] 11/13/2024 3:00 PM EDT Appointment [facility] Infusion 800 [place] [address] 11/14/2024 1:00 PM EDT Appointment [facility] Infusion [address] [place] [address] 11/15/2024 1:00 PM EDT Appointment [facility] Infusion 800 [place] [address] 11/16/2024 1:00 PM EDT Appointment [facility]fusion [address] [place] [address] 11/17/2024 3:00 PM EDT Appointment [facility] 2 [address] [place] [address] 11/18/2024 3:00 PM EDT Appointment [facility] 1 [address] [place] [address] 11/19/2024 2:00 PM EDT Appointment [facility] 2 [address] [place] [address] documented as of this encounter Visit Diagnoses Not on filedocumented in this encounter Additional Health Concerns Assessment Noted Time A fall risk assessment has been complete d for the patient 09/19/2024 8:38 AM EDT A Body Mass Index follow-up plan has been documented for the patient 05/28/2024 1:52 PM EST documented as of this encounter Care Teams Logging Equipment Operator Relationship Specialty Start Date End Date Jevon Vazquez MD [address] [place] [address] #1 #1 [place] [address] PCP - General 03/23/22 documented as of this encounter
[2024-11-12 09:02] VITALS: BMI 21.8
--- OUTSIDE RECORDS SUMMARY | 2024-11-12 09:02 | XMS_ITS | Encounter Summary ---
Author Organization [facility] Address [address] [place] [address] Care Team Providers Care Assistant Professor Of Biology Name Role Phone Jevon Vazquez MD Primary Care Provider [phone] Encounter Details Date Type Department Care Team ([facility] st Contact Info) Description 10/27/2024 Telephone P[facility] CC Hematology/BMT and Cellular Therapy Program [address] [address] Zonia Hoffman, FUNERAL HOME MANAGER 800 [facility] [address] [place] [address] Social History Tobacco Use Types Packs/Day Years [...] and her new appts will be on [employer]. She verbalizes understanding. * Telephone Encounter - [...] Hematology/BMT and Cellular Therapy Program [address] [address] 11/13/2024 1:30 PM EDT Office Visit PAV Hematology/BMT and Cellular Therapy Program [address] [address] Zonia Hoffman, FUNERAL HOME MANAGER 800 [facility] [address] [place] [address] 11/13/2024 3:00 PM EDT Appointment [facility] Infusion [address] [place] [address] 11/14/2024 1:00 PM EDT Appointment [facility] Infusion [address] [place] [address] 11/15/2024 1:00 PM EDT Appointment [facility]fusion [address] [place] [address] 11/16/2024 1:00 PM EDT Appointment [facility] Infusion [address] [place] [address] 11/17/2024 3:00 PM EDT Appointment [facility] 2 [address] [place] [address] 11/18/2024 3:00 PM EDT Appointment [facility] 1 [address] [place] [address] 11/19/2024 2:00 PM EDT Appointment [facility] 2 [address] [place] [address] documented as of this encounter Visit Diagnoses Not on filedocumented in this encounter Additional Health Concerns Assessment Noted Time A fall risk assessment has been complete d for the patient 09/30/2024 9:33 AM EDT A Body Mass Index follow-up plan has been documented for the patient 05/28/2024 1:52 PM EST documented as of this encounter Care Teams Assistant Professor Of Biology Relationship Specialty Start Date End Date Jevon Vazquez MD [address] [place] [address] #1 #1 JOSEP [place] [id number] PCP - General 03/23/22 documented as of this encounter
--- OUTSIDE RECORDS SUMMARY | 2024-11-12 09:02 | XMS_ITS | Encounter Summary ---
Author Organization [facility] Address [address] [place] [address] Care Team Providers Care Process Safety Engineer Name Role Phone Jevon Vazquez MD Primary Care Provider [phone] Encounter Details Date Type Department Care Team [...] Hematology/BMT and Cellular Therapy Program [address] [address] 11/13/2024 1:30 PM EDT Office Visit [facility] CC Hematology/BMT and Cellular Therapy Program [address] [address] Zonia Hoffman, RODDY 800 [facility] [address] [place] [address] 11/13/2024 3:00 PM EDT Appointment [facility] Infusion 800 [place] [address] 11/14/2024 1:00 PM EDT Appointment [facility]fusion [address] [place] [address] 11/15/2024 1:00 PM EDT Appointment [facility] Infusion 800 [place] [address] 11/16/2024 1:00 PM EDT Appointment [facility] Infusion [address] [place] [address] 11/17/2024 3:00 PM EDT Appointment [facility] 2 [address] [place] [address] 11/18/2024 3:00 PM EDT Appointment [facility] 1 [address] [place] [address] 11/19/2024 2:00 PM EDT Appointment [facility] 2 [address] [place] [address] documented as of this encounter Visit Diagnoses Not on filedocumented in this encounter Additional Health Concerns Assessment Noted Time A fall risk assessment has been complete d for the patient 09/19/2024 8:38 AM EDT A Body Mass Index follow-up plan has been documented for the patient 05/28/2024 1:52 PM EST documented as of this encounter Care Teams Process Safety Engineer Relationship Specialty Start Date End Date Jevon Vazquez MD [address] [place] [address] #1 #1 Julien JOSEP [address] PCP - General 03/23/22 documented as of this encounter
--- OUTSIDE RECORDS SUMMARY | 2024-11-12 09:02 | XMS_ITS | Clinical Summary ---
Author Organization [facility] Address [address] [place] [address] Phone Care Team Providers Care Circus Trainer Name Role Phone Jevon Vazquez MD Primary Care Provider [phone] Allergies Active Allergy Reactions Criticality Noted Date [...] Surgeon: Ivan Bartholomew MD; Location: [facility] MAIN OR; Service: Spine Medical [...] 5.6 % 11/14/2022 2:57 PM EDT PREFERRED [employer], [employer] Est. Avg Glucose 148 mg/dL 11/14/2022 2:57 PM EDT [employer], [facility] Blood VENOUS BLOOD / Unknown Venipuncture / Unknown 11/11/2022 3:46 PM EDT 11/11/2022 3:55 PM EDT Narrative [facility] - 11/14/2022 2:57 PM EDT REFERENCE RANGE: Normal: 4.0-5.6% Pre-diabetes: 5.7-6.4% Provisional diagnosis of diabetes: >6.4% Hgb F>10% and anything which shortens red cell survival, such as hemolytic anemia, or unstable hemoglobin variants such as HbSS, HbSC, or HbCC, will lower the HbA1c value associated with a given level of glycemic control. us Lexi Maloney DO CHEMISTRY ORDERABLES Final R esult [facility] [address] [facility] , [place] [address] * (ABNORMAL) BASIC METABOLIC PANEL (11/11/2022 3:46 PM EDT) Sodium 136 136 - 145 mmol/L 11/11/2022 4:11 PM EDT [facility] Potassium 3.8 3.5 - 5.0 mmol/L 11/11/2022 4:11 PM EDT [facility] Chloride 102 98 - 107 mmol/L 11/11/2022 4:11 PM EDT [facility] Total CO2 24 22 - 29 mmol/L 11/11/2022 4:11 PM EDT [facility] Anion Gap 10 7 - 16 mmol/L 11/11/2022 4:11 PM EDT [facility] Calcium 10.1 8.8 - 10.4 mg/dL 11/11/2022 4:11 PM EDT [facility] Glucose Lvl 147(H) 82 - 100 mg/dL 11/11/2022 4:11 PM EDT [facility] BUN 15 8 - 23 mg/dL 11/11/2022 4:11 PM EDT [facility] Creatinine 0.82 0.51 - 1.30 mg/dL 11/11/2022 4:11 PM EDT [facility] eGFR (CKD-EPIcr 2020) 76 >=60 mL/min/1.7 3 m2 11/11/2022 4:11 PM EDT [facility] Comment:Estimated GFR was ca lculated using the CKD-EPIcr (2020) equation refit without race. The equation is recommended by the National Kidney Foundation - [place] [employer] Nephrology Task Force. Blood VENOUS BLOOD / Unknown Venipuncture / Unknown 11/11/2022 3:46 PM EDT 11/11/2022 3:54 PM EDT us Leona Hanna DO CHEMISTRY ORDERABLES Final Res ult [facility] [address] [place] [address] * DX BONE DENSITY AXIAL SKELETON (07/25/2022 9:14 AM EDT) Anatomical Region Laterality Modality Dexa Scan 07/25/2022 Narrative 07/25/2022 3:45 PM EDT Indication: The patient is a female age 65 or older who requires a bone density assessment. Study was performed on [employer] 5. Bone Density: Region BMD T-score Z-score [...] Most Recently Relevant to Health Maintenance [place] [address] [address] [place] [address] MEDICARE SUPPLEMENT MEDICARE [place] PART A AND B Member Subscriber Plan / Payer (Ef fective 2016-Present) Name:Ashly Hernández Member ID:[id number] Relation to Subscriber:Self Name:Ashly Hernández Subscriber ID:[id number] Payer ID:Not on file Group ID:Not on file Type:Not on file Address: [address] MEDICARE [place]PPLE[place]ARE [place] PART A [place] [place] [id number] MEDICARE [place] PART A AND B Member Subscriber Plan / Payer (Ef fective 2016-Present) Name:Ashly Hernández Member ID:[id number] Relation to Subscriber:Self Name:Ashly Hernández Subscriber ID:[id number] Payer ID:Not on file Group ID:Not on file Type:Not on file Address: [address] MEDICARE SUPPLEMENT [employer] MEDICARE [place] PART A AND B [address] MEDICARE SUPPLEMENT Advance Directives For more information, please contact: [phone] * Full Code (Latest Code Status on File) Date Activated Date Inactivated Comments 11/14/2022 6:53 PM 11/16/2022 7:37 PM * Full Code Date Activated Date Inactivated Comments 11/12/2022 5:17 AM 11/14/2022 6:47 PM Care Teams Circus Trainer Relationship Specialty Start Date End Date Jevon Vazquez MD [address] [place] [address] PCP - General Family Medicine 11/10/22
--- OUTSIDE RECORDS SUMMARY | 2024-11-12 09:02 | XMS_ITS | Encounter Summary ---
Author Organization Healthcare Address [address] [place] [address] Care Team Providers Care Cell Tender Name Role Phone Jevon Vazquez MD Primary Care Provider [phone] Encounter Details Date Type Department Care Team [...] Hematology/BMT and Cellular Therapy Program [address] [address] 11/13/2024 1:30 PM EDT Office Visit [facility] Hematology/BMT and Cellular Therapy Program [address] [address] Zonia Hoffman, RODDY 800 [facility] [address] [place] [address] 11/13/2024 3:00 PM EDT Appointment [facility] [address] [place] [address] 11/14/2024 1:00 PM EDT Appointment [facility] [address] [place] [address] 11/15/2024 1:00 PM EDT Appointment [facility] [address] [place] [address] 11/16/2024 1:00 PM EDT Appointment [facility] [address] [place] [address] 11/17/2024 3:00 PM EDT Appointment [facility] 2 [address] [place] [address] 11/18/2024 3:00 PM EDT Appointment [facility] 1 [address] [place] [address] 11/19/2024 2:00 PM EDT Appointment [facility] 2 [address] [place] [address] documented as of this encounter Visit Diagnoses Not on filedocumented in this encounter Additional Health Concerns Assessment Noted Time A fall risk assessment has been complete d for the patient 09/30/2024 9:33 AM EDT A Body Mass Index follow-up plan has been documented for the patient 05/28/2024 1:52 PM EST documented as of this encounter Care Teams Cell Tender Relationship Specialty Start Date End Date Jevon Vazquez MD [address] [place] [address] #1 #1 Julien JOSEP [id number] PCP - General 03/23/22 documented as of this encounter
--- OUTSIDE RECORDS SUMMARY | 2024-11-12 09:02 | XMS_ITS | Encounter Summary ---
Author Organization Healthcare Address [address] [place] [address] Care Team Providers Care Manufacturing Team Member Name Role Phone Jevon Vazquez MD Primary Care Provider [phone] Encounter Details Date Type Department Care Team [...] Hematology/BMT and Cellular Therapy Program [address] [address] 11/13/2024 1:30 PM EDT Office Visit [facility] Hematology/BMT and Cellular Therapy Program [address] [address] Zonia Hoffman, RODDY 800 [facility] [address] [place] [phone] 11/13/2024 3:00 PM EDT Appointment [facility] [address] [place] [address] 11/14/2024 1:00 PM EDT Appointment [facility] [address] [place] [address] 11/15/2024 1:00 PM EDT Appointment [facility] [address] [place] [address] 11/16/2024 1:00 PM EDT Appointment [facility] [address] [place] [address] 11/17/2024 3:00 PM EDT Appointment [facility] 2 [address] [place] [address] 11/18/2024 3:00 PM EDT Appointment [facility] 1 [address] [place] [address] 11/19/2024 2:00 PM EDT Appointment [facility] 2 [address] [place] [address] documented as of this encounter Visit Diagnoses Not on filedocumented in this encounter Additional Health Concerns Assessment Noted Time A fall risk assessment has been complete d for the patient 09/30/2024 9:33 AM EDT A Body Mass Index follow-up plan has been documented for the patient 05/28/2024 1:52 PM EST documented as of this encounter Care Teams Manufacturing Team Member Relationship Specialty Start Date End Date Jevon Vazquez MD [address] [place] [address] #1 #1 Julien JOSEP [id number] PCP - General 03/23/22 documented as of this encounter
--- OUTSIDE RECORDS SUMMARY | 2024-11-12 09:02 | XMS_ITS | Encounter Summary ---
Author Organization Healthcare Address [address] [place] [address] Care Team Providers Care Director Of Restaurant Operations Name Role Phone Jevon Vazquez MD Primary Care Provider [phone] Encounter Details Date Type Department Care Team (Latest Contact Info) Description 11/10/2024 Travel Social History Tobacco Use Types Packs/Day [...] Hematology/BMT and Cellular Therapy Program [address] [address] 11/13/2024 1:30 PM EDT Office Visit [facility] Hematology/BMT and Cellular Therapy Program [address] [address] Zonia Hoffman, RODDY 800 [facility] [address] [place] [address] 11/13/2024 3:00 PM EDT Appointment [facility] [address] [place] [address] 11/14/2024 1:00 PM EDT Appointment [facility] [address] [place] [address] 11/15/2024 1:00 PM EDT Appointment [facility] [address] [place] [address] 11/16/2024 1:00 PM EDT Appointment [facility] [address] [place] [address] 11/17/2024 3:00 PM EDT Appointment [facility] 2 [address] [place] [address] 11/18/2024 3:00 PM EDT Appointment [facility] 1 [address] [place] [address] 11/19/2024 2:00 PM EDT Appointment [facility] 2 [address] [place] [address] documented as of this encounter Visit Diagnoses Not on filedocumented in this encounter Additional Health Concerns Assessment Noted Time A fall risk assessment has been complete d for the patient 09/30/2024 9:33 AM EDT A Body Mass Index follow-up plan has been documented for the patient 05/28/2024 1:52 PM EST documented as of this encounter Care Teams Director Of Restaurant Operations Relationship Specialty Start Date End Date Jevon Vazquez MD [address] [place] [address] #1 #1 Julien JOSEP [id number] PCP - General 03/23/22 documented as of this encounter
--- OUTSIDE RECORDS SUMMARY | 2024-11-12 09:02 | XMS_ITS | Encounter Summary ---
Author Organization Healthcare Address [address] [place] [address] Care Team Providers Care Insurance Auditor Name Role Phone Jevon Vazquez MD Primary Care Provider [phone] Encounter Details Date Type Department Care Team [...] Hematology/BMT and Cellular Therapy Program [address] [address] 11/13/2024 1:30 PM EDT Office Visit [facility] Hematology/BMT and Cellular Therapy Program [address] [address] Zonia Hoffman, RODDY 800 [facility] [address] [place] [address] 11/13/2024 3:00 PM EDT Appointment [facility] [address] [place] [address] 11/14/2024 1:00 PM EDT Appointment [facility] [address] [place] [address] 11/15/2024 1:00 PM EDT Appointment [facility] [address] [place] [address] 11/16/2024 1:00 PM EDT Appointment [facility] [address] [place] [address] 11/17/2024 3:00 PM EDT Appointment [facility] 2 [address] [place] [address] 11/18/2024 3:00 PM EDT Appointment [facility] 1 [address] [place] [address] 11/19/2024 2:00 PM EDT Appointment [facility] 2 [address] [place] [address] documented as of this encounter Visit Diagnoses Not on filedocumented in this encounter Additional Health Concerns Assessment Noted Time A fall risk assessment has been complete d for the patient 09/30/2024 9:33 AM EDT A Body Mass Index follow-up plan has been documented for the patient 05/28/2024 1:52 PM EST documented as of this encounter Care Teams Insurance Auditor Relationship Specialty Start Date End Date Jevon Vazquez MD [address] [place] [address] #1 #1 Julien JOSEP [id number] PCP - General 03/23/22 documented as of this encounter
--- OUTSIDE RECORDS SUMMARY | 2024-11-12 09:02 | XMS_ITS | Encounter Summary ---
Author Organization Healthcare Address [address] [place] [address] Care Team Providers Care Full Decator Operator Name Role Phone Jevon Vazquez MD Primary Care Provider [phone] Encounter Details Date Type Department Care Team [...] Hematology/BMT and Cellular Therapy Program [address] [address] 11/13/2024 1:30 PM EDT Office Visit [facility] Hematology/BMT and Cellular Therapy Program [address] [address] Zonia Hoffman, RODDY 800 [facility] [address] [place] [address] 11/13/2024 3:00 PM EDT Appointment [facility] 800 [place] [address] 11/14/2024 1:00 PM EDT Appointment [facility] [address] [place] [address] 11/15/2024 1:00 PM EDT Appointment [facility] [address] [place] [address] 11/16/2024 1:00 PM EDT Appointment [facility] [address] [place] [address] 11/17/2024 3:00 PM EDT Appointment [facility] 2 [address] [place] [address] 11/18/2024 3:00 PM EDT Appointment [facility] 1 [address] [place] [address] 11/19/2024 2:00 PM EDT Appointment [facility] 2 [address] [place] [address] documented as of this encounter Visit Diagnoses Not on filedocumented in this encounter Additional Health Concerns Assessment Noted Time A fall risk assessment has been complete d for the patient 09/30/2024 9:33 AM EDT A Body Mass Index follow-up plan has been documented for the patient 05/28/2024 1:52 PM EST documented as of this encounter Care Teams Full Decator Operator Relationship Specialty Start Date End Date Jevon Vazquez MD [address] [place] [address] #1 #1 Julien JOSEP [id number] PCP - General 03/23/22 documented as of this encounter
--- OUTSIDE RECORDS SUMMARY | 2024-11-12 09:02 | XMS_ITS | Clinical Summary ---
Author Organization [facility] Address [address] [place] [address] Care Team Providers Care Textile Pin Worker Name Role Phone David Vazquez Primary Care Provider [phone] Allergies No known active allergies Medications atorvastatin [...] series) 2025 Medical Devices Implanted Type Area Cylinder Dyer Device Identifier Shelf Expiration Date Model / Serial / Lot Mis Ply Scr 6.5x50mm - [id number] Implanted:Qty : 1 on 01/30/2023 by Ivan Bartholomew MD at [facility] Screw N/A: Spine Lumbar [employer] [id number] / / Mis Ply Scr 6.5x45mm - [id number] Implanted:Qty : 3 on 01/30/2023 by Ivan Bartholomew MD at [facility] Screw N/A: Spine Lumbar [employer] [id number] / / Reline Mas Reduction Screw 7.5x45 - [id number] Implanted:Qty : 2 on 01/30/2023 by Ivan Bartholomew MD at [facility] Screw N/A: Spine Lumbar [employer] [id number] / / Grft Dbm Vesuvius Putty 5cc - [id number] Implanted:Qty : 1 on 01/30/2023 by Ivan Bartholomew MD at [facility] [employer] [id number] 04/20/2025 [id number] 050D P / [id number] / Putty I-Factor 5.0cc - [id number] Implanted:Qty : 1 on 01/30/2023 by Ivan Bartholomew MD at [facility] N/A: Spine Lumbar [employer] 03/15/2025 [id number] / / [id number] Modulus Xlw [id number] 10 Degree - [id number] Implanted:Qty : 1 on 01/30/2023 by Ivan Bartholomew MD at [facility] N/A: Spine Lumbar [employer] [id number] / / [id number] Modulus Xlw [id number] - [id number] Implanted:Qty : 1 on 01/30/2023 by vIan Bartholomew MD at [facility] N/A: Spine Lumbar [employer] 09/28/2027 [id number] / / [id number] Reln Lock Scr 5.5mm Opn Tulip - [id number] Implanted:Qty : 6 on 01/30/2023 by Ivan Bartholomew MD at [facility] N/A: Spine Lumbar [employer] [id number] / / Reln Mas Ti Petar 5.5x70mm - [id number] Implanted:Qty : 2 on 01/30/2023 by Ivan Bartholomew MD at [facility] N/A: Spine Lumbar [employer] [id number] / / Procedures Procedure Name Priority Date/Time [...] Glycohemoglobin Standardization program (NGSP) and [facility] Estimated Average Glucose 126(H) 68 - 114 mg/dL [facility] Whole Blood (Blood) 01/24/2023 2:32 PM EDT 01/24/2023 6:00 PM EDT us Ivan Bartholomew MD CHEMISTRY ORDERABLES Fin al Result [facility] [address] * (ABNORMAL) BASIC METABOLIC PANEL (BMP=EP1) [...] lt [facility] [address] from Last 3 Months or Most Recently Relevant to Health Maintenance Insurance MEDICARE PART A [facility] [address] [address] [place] [address] ANTH Advance Directives For more information, please contact: [phone] * Full Code (Latest Code Status on File) Date Activated Date Inactivated Comments 01/30/2023 9:13 AM No automated chest compression devices for [facility] Patients Care Teams Textile Pin Worker Relationship Specialty Start Date End Date David Vazquez [address] [place] [address] PCP - General 01/24/23
--- OUTSIDE RECORDS SUMMARY | 2024-11-12 09:02 | XMS_ITS | Encounter Summary ---
Author Organization Healthcare Address [address] [place] [address] Care Team Providers Care Body Repairer Name Role Phone Jevon Vazquez MD Primary Care Provider [phone] Encounter Details Date Type Department Care Team [...] Hematology/BMT and Cellular Therapy Program [address] [address] 11/13/2024 1:30 PM EDT Office Visit [facility] Hematology/BMT and Cellular Therapy Program [address] [address] Zonia Hoffman, RODDY 800 [facility] [address] [place] [address] 11/13/2024 3:00 PM EDT Appointment [facility] 800 [place] [address] 11/14/2024 1:00 PM EDT Appointment [facility] [address] [place] [address] 11/15/2024 1:00 PM EDT Appointment [facility] [address] [place] [address] 11/16/2024 1:00 PM EDT Appointment [facility] [address] [place] [address] 11/17/2024 3:00 PM EDT Appointment [facility] 2 [address] [place] [address] 11/18/2024 3:00 PM EDT Appointment [facility] 1 [address] [place] [address] 11/19/2024 2:00 PM EDT Appointment [facility] 2 [address] [place] [address] documented as of this encounter Visit Diagnoses Not on filedocumented in this encounter Additional Health Concerns Assessment Noted Time A fall risk assessment has been complete d for the patient 09/19/2024 8:38 AM EDT A Body Mass Index follow-up plan has been documented for the patient 05/28/2024 1:52 PM EST documented as of this encounter Care Teams Body Repairer Relationship Specialty Start Date End Date Jevon Vazquez MD [address] [place] [address] #1 #1 Julien JOSEP [id number] PCP - General 03/23/22 documented as of this encounter
--- OUTSIDE RECORDS SUMMARY | 2024-11-12 09:02 | XMS_ITS | Clinical Summary ---
Author Organization [facility] Address [address] [place] [address] Care Team Providers Care Herb Counselor Name Role Phone Jevon Vazquez MD Primary Care Provider [phone] Allergies No known active allergies Medications amLODIPine [...] daily. 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 Encounters Date Type Department Care Team Description 11/11/2024 Travel 11/10/2024 Travel 11/09/2024 Travel 11/08/2024 Travel 11/08/2024 Refill [facility] Hematology/BMT and Cellular Therapy Program 750 [facility], [address] [place] [address] [place] [address] New Mckinney MD 11/07/2024 Travel 10/29/2024 Refill [facility] Hematology/BMT and Cellular Therapy Program [address] [place] [phone] Zonia Hoffman, SPECIALTY PERSON 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); Immunosuppressed status (CMS/HCC) 10/28/2024 Telephone [facility] Hematology/BMT and Cellular Therapy Program [address] [phone] Zonia Hoffman, SPECIALTY PERSON 10/27/2024 Telephone [facility] Hematology/BMT and Cellular Therapy Program [address] [phone] Zonia Hoffman, SPECIALTY PERSON 10/27/2024 Travel 10/26/2024 Travel 10/24/2024 Travel 10/23/2024 Travel 10/22/2024 Travel 10/15/2024 Refill [facility] Hematology/BMT and Cellular Therapy Program [address] [phone] New Mckinney MD 10/14/2024 Refill [facility] Hematology/BMT and Cellular Therapy Program [address] [phone] New Mckinney MD 10/13/2024 Telephone [facility] Hematology/BMT and Cellular Therapy Program [address] [phone] Zonia Hoffman, SPECIALTY PERSON 10/13/2024 Travel 10/12/2024 Travel 10/11/2024 Travel 10/09/2024 Travel 10/08/2024 Travel 10/08/2024 Orders Only [facility] Hematology/BMT and Cellular Therapy Program [address] [place] [phone] 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, kindergarten prep teacher 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) 10/07/2024 Travel 09/30/2024 9:30 AM EDT Office Visit [facility] Hematology/BMT and Cellular Therapy Program 750 [facility], [address] [place] [address] [place] [address] Zonia Hoffman APRN 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) 09/30/2024 9:00 AM EDT Clinical Support [facility] Hematology/BMT and Cellular Therapy Program 750 [facility], [address] [place] [phone] JustoConnieJyoti S 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) 09/30/2024 Telephone [facility] Hematology/BMT and Cellular Therapy Program 750 [facility], [address] [place] [phone] Zoraida Good RN 09/30/2024 Travel 09/29/2024 Travel 09/28/2024 Travel 09/27/2024 Travel 09/26/2024 Travel 09/25/2024 Travel 09/24/2024 Travel 09/23/2024 Travel 09/19/2024 12:00 PM EDT Procedure Visit [facility] Hematology/BMT and Cellular Therapy Program 750 [facility], [address] [place] [phone] Lexi Ferraro APRN 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) 09/19/2024 9:30 AM EDT Clinical Support [facility] [address] [facility], [address]nd [place] [address] 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) 09/19/2024 7:30 AM EDT Clinical Support [facility] Hematology/BMT and Cellular Therapy Program 750 [facility], [address] [place] [phone] 09/19/2024 Telephone [facility] Hematology/BMT and Cellular Therapy Program 750 [facility], [address] [place] [phone] Romana Richmond RN 09/19/2024 Orders Only [facility] Hematology/BMT and Cellular Therapy Program 750 [facility], [address] [place] [phone] oJrge Gordon RN 09/19/2024 Travel 09/15/2024 Telephone [facility] Hematology/BMT and Cellular Therapy Program [address] [phone] Zonia Hoffman, SPECIALTY PERSON 09/15/2024 Travel 09/14/2024 Travel 09/13/2024 Travel 09/12/2024 Travel 09/12/2024 Refill [facility] Hematology/BMT and Cellular Therapy Program [address] [place] [address], [address] [place] [phone] New Mckinney MD 09/11/2024 Travel 09/10/2024 Travel 09/01/2024 Telephone [facility] Hematology/BMT and Cellular Therapy Program [address] [place] [phone] Zonia Hoffman, SPECIALTY PERSON 08/31/2024 Travel 08/30/2024 Travel 08/18/2024 Telephone [facility] Hematology/BMT and Cellular Therapy Program [address] [place] [phone] Romana Gorman, SPECIALTY PERSON 08/17/2024 Travel 08/16/2024 Travel 08/15/2024 Travel 08/13/2024 [...] Care Team ([facility] Contact Info) Description 11/13/2024 1:00 PM EDT Clinical Support [facility] Hematology/BMT and Cellular Therapy Program [address] [phone] 11/13/2024 1:30 PM EDT Office Visit [facility] Hematology/BMT and Cellular Therapy Program [address] [phone] Zonia Hoffman, SPECIALTY PERSON 800 [facility] [address] [place] [phone] 11/13/2024 3:00 PM EDT Appointment [facility] [address] [place] [address] 11/14/2024 1:00 PM EDT Appointment [facility] [address] [place] [address] 11/15/2024 1:00 PM EDT Appointment [facility] [address] [place] [address] 11/16/2024 1:00 PM EDT Appointment [facility] [address] [place] [address] 11/17/2024 3:00 PM EDT Appointment [facility] 2 [address] [place] [address] 11/18/2024 3:00 PM EDT Appointment [facility] 1 [address] [place] [address] 11/19/2024 2:00 PM EDT Appointment [facility] 2 [address] [place] [address] Health Maintenance Due Date Last Done Comments [...] UKY-Zoster Vaccines (1 of 2) 05/16/2023 03/21/2023 [id number] Vaccine ( season) 2023 02/18/2021, 07/10/2020, 06/12/2020 [...] this topic Medical Devices Implanted Type Area Waste Collection Driver Device Identifier Shelf Expiration Date Model / Serial / Lot Port Clearvue Power 8fr - [id number] Implanted:Qty: 1 on 01/21/2024 [id number] / / Procedures Procedure Name Priority Date/Time [...] AM EDT 09/30/2024 9:34 AM EDT Narrative [facility] - 09/30/2024 11:07 AM EDT Therapeutic decision making should be based on absolute values, rather than percentages. us Zonia Hoffman APRN LAB BLOOD ORDERABLES Final Res ult [facility] [address] [place] [address] * (ABNORMAL) Comprehensive Metabolic Panel, Plasma (09/30/2024 [...] APRN LAB BLOOD ORDERABLES Final Res ult [facility] [address] [place] [address] * BIOPSY BONE MARROW (09/19/2024 12:00 PM [...] to surronding structures. Alternatives discussed: Delayed treatment [place] protocol: Procedure explained and questions answered to [...] LAB HEMATOLOGY METHOD 09/19/2024 10:19 AM EDT [facility] Blood Blood sample taken from central line / Unknown (Port) Long-term Catheter / Unknown 09/19/2024 10:04 AM EDT 09/19/2024 10:18 AM EDT New Mckinney MD LAB BLOOD ORDERABLES Final Re sult [facility] [address] [place] [address] * Transfuse platelets, Irradiated (09/19/2024 10:02 AM EDT) Lexi Ferraro APRN BLOOD TRANSFUSION ORDERABL ES Final Result * Prepare Leukocyte Reduced Platelets (09/19/2024 9:08 AM EDT) Product Code [id number] CH BLOO D BANK Dispense Status Transfused BLOOD BANK Blood Expiration Date [id number] BLOOD BANK Unit Number [id number] B LOOD BANK Product Blood Type 6200 BLOOD BANK Blood Type A+ BLOOD BANK us Provider Not In System BLOOD BANK PRODUCT ORD ERABLES Final Result BLOOD BANK [address] [place] [address], * Myeloid Focused Panel, 50 gene (09/19/2024 7:29 AM EDT) Interpretation The following two (2) genes, TP53 and DNMT3A, with persistent variants have been detected in this bone marrow specimen. The variant, p.[id number], in TP53 gene and the variant, p.Mmq598leg, in the RUNX 1 gene are not detectable at current cutoff and coverage established in this lab. Gene: TP53 Mutation: c.814G>A; p.Rkb452Hvd Allele Frequency (%): 37% (45% Dec 2023) ID: [id number] Gene: DNMT3A Mutation: c.1522delC; p.[id number] 3 Allele Frequency (%): 36% (48% Dec 2023) Additional Details on Mutation Identified: Gene Transcript Genome Chrom Coordinate RefVar DNMT3A [id number] Hg19 2 [id number] delC TP53 [id number] Hg19 17 [id number] G>A 09/29/2024 4:05 PM EDT [facility] [...] then sequenced on the Illumina NextSeq 2000 ([employer], [place]). A custom bioinformatics pipeline aligns [...] of hematologic malignancies. 09/29/2024 4:05 PM EDT [facility] Disclaimer This test was developed and its performance characteristics determined by the Clinical Molecular and Genomic Pathology Laboratory at the [facility]. It has not been cleared [...] clinical laboratory testing. 09/29/2024 4:05 PM EDT [facility] Pathologist Signature Reviewed by: Corey Tejada 09/29/2024 4:05 PM EDT [facility] Bone Marrow Specimen from bone marrow obtained by aspiration / Unknown Non-blood Collection / Unknown 09/19/2024 7:29 AM EDT 09/19/2024 12:03 PM EDT us New Mckinney MD LAB MOLECULAR DIAGNOSTICS ORD ERABLES Final Result [facility] [address] [place] [address], * Chromosome Karyotype, Oncology (09/19/2024 7:29 AM EDT) Specimen Type Bone Marrow 09/24/2024 2:37 PM EDT [facility] Clinical Indication Myelodysplastic Syndrome 09/24/2024 2:37 PM EDT [facility] Specimen Adequacy Adequate 025 2:37 PM EDT [facility] Chromosome Analysis Result Giemsa-banded metaphase cells from unstimulated bone marrow cultures showed a 46,XX[20] chromosome pattern. 09/24/2024 2:37 PM EDT [facility] Interpretation Normal female chromosome analysis. No clonal abnormalities were detected at current resolution. Clinical correlation is recommended. # cells counted = 20 # cells analyzed = 20 # cells karyotyped = 2 Band resolution: 450-525 09/24/2024 2:37 PM EDT [facility] Pathologist Signature Reviewed by: Corey Tejada 09/24/2024 2:37 PM EDT [facility] Bone Marrow Non-blood Collection / Unknown 09/19/2024 7:29 AM EDT 09/19/2024 12:35 PM EDT us New Mckinney MD LAB CYTOGENETICS ORDERABLES F inal Result [facility] [address] [place] [address] * Leukemia/Lymphoma - Immunophenotyping by Flow Cytometry (09/19/2024 7:29 AM EDT) Clinical Indication AML 09/22/2024 10:29 AM EDT [facility] Flow Cytometry Interpretation A. BONE MARROW FOR FLOW CYTOMETRY: - MIXED MARROW ELEMENTS WITH NO EVIDENCE OF INCREASED BLASTS OR ABNORMAL LYMPHOID POPULATIONS, SEE COMMENT. 09/22/2024 10:29 AM EDT [facility] Comments CD45/side scatter analysis shows [...] 09/22/2024 10:29 AM EDT [facility] Disclaimer This test was developed and its performance characteristics determined by the Immuno-Molecular Pathology Laboratory at the [facility]. It has not been cleared [...] on the report. 09/22/2024 10:29 AM EDT [facility] Pathologist Signature Reviewed by: Lisandra Epstein MD 09/22/2024 10:29 AM EDT [facility] MRD Indicated Test Not Indicated 12/2024 10:29 AM EDT [facility] Bone Marrow Specimen from bone marrow obtained by aspiration / Unknown Non-blood Collection / Unknown 09/19/2024 7:29 AM EDT 09/19/2024 12:13 PM EDT us New Mckinney MD LAB FLOW CYTOMETRY ORDERABLES Final Result [facility] [address] [place] [address] * Bone marrow exam (09/19/2024 7:29 AM EDT) Case Report Bone Marrow Case: [id number] Authorizing Provider: New Mckinney MD Collected: 09/19/2024 0729 Ordering Location: [facility] Hematology/BMT and Received: 09/19/2024 1216 Cellular Therapy Program Pathologist: Lisandra Epstein MD Specimens: A) - Bone Marrow Aspirate, right B) - Bone Marrow Biopsy, right C) - Peripheral Blood for Bone Marrow 3:15 PM EDT [facility] Cytogenetics Report, Addendum Chromosome Analysis Result Giemsa-banded metaphase cells from unstimulated bone marrow cultures showed a 46,XX[20] chromosome pattern. Interpretation Normal female chromosome analysis. No clonal abnormalities were detected at current resolution. Clinical correlation is recommended. 3:15 PM EDT [facility] Addendum electronically signed by Lisandra Epstein MD on 09/24/2024 at 1630 EDT Addendum Interpretation The following two (2) genes, TP53 and DNMT3A, with persistent variants have been detected in this bone marrow specimen. The variant, p.Xps006Blz, in TP53 gene and the variant, p.Usk840csq, in the RUNX 1 gene are not detectable at current cutoff and coverage established in this lab. Gene: TP53 Mutation: c.814G>A; p.Fur549Vcq Allele Frequency (%): 37% (45% Dec 2023) ID: [id number] Gene: DNMT3A Mutation: c.1522delC; p.Xod705VasjmMei4 43 Allele Frequency (%): 36% (48% Dec 2023) Additional Details on Mutation Identified: 3:15 PM EDT [facility] Addendum electronically signed by Lisandra Epstein MD on 09/30/2024 at 1515 EDT Final Diagnosis PERIPHERAL BLOOD AND BONE MARROW, RIGHT POSTERIOR ILIAC CREST, (ASPIRATE SMEAR, AND CORE BIOPSY): - HYPOCELLULAR BONE MARROW WITH MARKEDLY DECREASED MEGAKARYOCYTES; NO SIGNIFICANT DYSPOIESIS OR INCREASE IN BLASTS. 3:15 PM EDT [facility] at 1453 EDT Clinical Information AML 09/14 3:15 PM EDT [facility] CBC and Differential PERIPHERAL BLOOD: [...] blasts are not seen. 3:15 PM EDT [facility] Bone Marrow Differential BONE MARROW DIFFERENTIAL: 200 cells Normal Patient Neutrophils 15-50 34 Metamyelocytes 4-19 3 Myelocytes 1-18 10 Promyelocytes 1-8 1 Blasts 0-2 1 Monocytes 0-5 4 Erythroid 16-38 22 Lymphocytes 3-24 13 Eosinophils 0-6 8 Basophils 0-2 0 Plasma cells 0-4 4 Other 3:15 PM EDT [facility] Bone Marrow Aspirate and Biopsy [...] unremarkable. 3:15 PM EDT [facility] Special and Immunohistochemical Stains Special Stain: A1-1 Vazquez-Giemsa A1-2 Vazquez-Giemsa A1-3 Vazquez-Giemsa C1-1 Vazquez-Giemsa IHC: B1-2 CD34 All controls show appropriate reactivity. All immunohistochemis try, in situ hybridization, and histochemical tests were developed by and are performed at the [facility], [address] [place] [address]. All tests reported here, except those addressing [...] negativity on decalcified specimens. 3:15 PM EDT [facility] Flow Cytometry Interpretation MIXED MARROW ELEMENTS WITH NO EVIDENCE OF INCREASED BLASTS OR ABNORMAL LYMPHOID POPULATIONS ([id number]). 3:15 PM EDT [facility] CYTOGENETICS/MOLECULA R INTERPRETATION Correlation with cytogenetic/molec ular analysis is suggested. 3:15 PM EDT [facility] Gross Description B. RIGHT A single specimen is received in formalin labeled bone marrow biopsy right posterior iliac crest and consists of 2 piece(s) of red/white tissue measuring 2.1/0.3 cm in length 0.2 cm in diameter. The specimen is submitted in to Histology for decalcification and routine processing. Cold Time: <1m 3:15 PM EDT [facility] Note: A resident was involved in the service. I attest I examined the relevant preparations for the specimens and confirmed the diagnosis or interpretation. 3:15 PM EDT [facility] Bone Marrow Peripheral blood specimen [...] PATHOLOGY ORDERABLES Edit ed Result - Final [facility] [address] [place] [address] * Hepatitis C Antibody w/Reflex to HCV Quant PCR (01/07/2024 8:42 AM EDT) Hepatitis C Antibody Negative Negative 01/07/2024 10:13 AM EDT [facility] Blood Venous blood specimen / Unknown Venipuncture / Unknown 01/07/2024 8:42 AM EDT 01/07/2024 9:25 AM EDT New Mckinney MD LAB BLOOD ORDERABLES Final Re sult [facility] [address] [place] [address] from Last 3 Months or Most Recently Relevant to Health Maintenance Insurance MEDICARE [facility] Care Teams Herb Counselor Relationship Specialty Start Date End Date Jevon Vazquez MD [address] [place] [address] #1 #1 [place] [id number] PCP - General 03/23/22
--- OUTSIDE RECORDS SUMMARY | 2024-11-12 09:02 | XMS_ITS | Encounter Summary ---
Author Organization Healthcare Address [address] [place] [address] Care Team Providers Care Manager People Name Role Phone Jevon Vazquez MD Primary Care Provider [phone] Encounter Details Date Type Department Care Team (Late Contact Info) Description 09/30/2024 Telephone [facility] Hematology/BMT and Cellular Therapy Program [address] [place] [address] Zoraida Good, RN [facility] Social History Tobacco [...] Hematology/BMT and Cellular Therapy Program [address] [place] [address] 11/13/2024 1:30 PM EDT Office Visit [facility] Hematology/BMT and Cellular Therapy Program [address] [phone] Zonia Hoffman, CLINICAL QUALITY ANALYST 800 [facility] [address] [place] [phone] 11/13/2024 3:00 PM EDT Appointment [facility] [address] [place] [address] 11/14/2024 1:00 PM EDT Appointment [facility] [address] [place] [address] 11/15/2024 1:00 PM EDT Appointment [facility] [address] [place] [address] 11/16/2024 1:00 PM EDT Appointment [facility] [address] [place] [address] 11/17/2024 3:00 PM EDT Appointment [facility] 2 [address] [place] [address] 11/18/2024 3:00 PM EDT Appointment [facility] 1 [address] [place] [address] 11/19/2024 2:00 PM EDT Appointment [facility] 2 [address] [place] [address] documented as of this encounter Visit Diagnoses Not on filedocumented in this encounter Additional Health Concerns Assessment Noted Time A fall risk assessment has been complete d for the patient 09/30/2024 9:33 AM EDT A Body Mass Index follow-up plan has been documented for the patient 05/28/2024 1:52 PM EST documented as of this encounter Care Teams Manager People Relationship Specialty Start Date End Date Jevon Vazquez MD [address] [place] [address] #1 [address]1 [place] [address] PCP - General 03/23/22 documented as of this encounter
--- OUTSIDE RECORDS SUMMARY | 2024-11-12 09:02 | XMS_ITS | Encounter Summary ---
Author Organization Healthcare Address [address] [place] [address] Care Team Providers Care Hardboard Press Operator Name Role Phone Jevon Vazquez MD Primary Care Provider [phone] Encounter Details Date Type Department Care Team ([facility] st Contact Info) Description 10/13/2024 Telephone [facility] Hematology/BMT and Cellular Therapy Program [address] [phone] Zonia Hoffman, RIGGING LOFT MECHANIC 800 [facility] [address] [place] [address] Social History Tobacco Use Types Packs/Day Years [...] needs to be delayed again Callback number: [phone] documented in this encounter Plan of Treatment Upcoming Encounters Date Type Department Care Team ([facility] st Contact Info) Description 11/13/2024 1:00 PM EDT Clinical Support [facility] Hematology/BMT and Cellular Therapy Program [address] [address] 11/13/2024 1:30 PM EDT Office Visit [facility] Hematology/BMT and Cellular Therapy Program [address] [phone] Zonia Hoffman, RIGGING LOFT MECHANIC 800 [facility] [address] [place] [phone] 11/13/2024 3:00 PM EDT Appointment [facility] [address] [place] [address] 11/14/2024 1:00 PM EDT Appointment [facility] [address] [place] [address] 11/15/2024 1:00 PM EDT Appointment [facility] [address] [place] [address] 11/16/2024 1:00 PM EDT Appointment [facility] [address] [place] [address] 11/17/2024 3:00 PM EDT Appointment [facility] 2 [address] [place] [address] 11/18/2024 3:00 PM EDT Appointment [facility] 1 [address] [place] [address] 11/19/2024 2:00 PM EDT Appointment [facility] 2 [address] [place] [address] documented as of this encounter Visit Diagnoses Not on filedocumented in this encounter Additional Health Concerns Assessment Noted Time A fall risk assessment has been complete d for the patient 09/30/2024 9:33 AM EDT A Body Mass Index follow-up plan has been documented for the patient 05/28/2024 1:52 PM EST documented as of this encounter Care Teams Hardboard Press Operator Relationship Specialty Start Date End Date Jevon Vazquez MD [address] [place] [address] #1 #1 [place] [id number] PCP - General 03/23/22 documented as of this encounter
--- OUTSIDE RECORDS SUMMARY | 2024-11-12 09:02 | XMS_ITS | Encounter Summary ---
Author Organization Healthcare Address [address] [place] [address] Care Team Providers Care Ed Teacher Name Role Phone Jevon Vazquez MD [...] Hematology/BMT and Cellular Therapy Program [address] [address] 11/13/2024 1:30 PM EDT Office Visit [facility] Hematology/BMT and Cellular Therapy Program [address] [address] Zonia Hoffman, RODDY 800 [facility] [address] [place] [phone] 11/13/2024 3:00 PM EDT Appointment [facility] [address] [place] [address] 11/14/2024 1:00 PM EDT Appointment [facility] [address] [place] [address] 11/15/2024 1:00 PM EDT Appointment [facility] [address] [place] [address] 11/16/2024 1:00 PM EDT Appointment [facility] [address] [place] [address] 11/17/2024 3:00 PM EDT Appointment [facility] 2 [address] [place] [address] 11/18/2024 3:00 PM EDT Appointment [facility] 1 [address] [place] [address] 11/19/2024 2:00 PM EDT Appointment [facility] 2 [address] [place] [address] documented as of this encounter Visit Diagnoses Not on filedocumented in this encounter Additional Health Concerns Assessment Noted Time A fall risk assessment has been complete d for the patient 09/30/2024 9:33 AM EDT A Body Mass Index follow-up plan has been documented for the patient 05/28/2024 1:52 PM EST documented as of this encounter Care Teams Ed Teacher Relationship Specialty Start Date End Date Jevon Vzaquez MD [address] [place] [address] #1 #1 [place] JOSEP [id number] PCP - General 03/23/22 documented as of this encounter
--- OUTSIDE RECORDS SUMMARY | 2024-11-12 09:02 | XMS_ITS | Encounter Summary ---
Author Organization Healthcare Address [address] [place] [address] Care Team Providers Care Clothing Trades Workers Name Role Phone Jevon Vazquez MD Primary Care Provider [phone] Encounter Details Date Type Department Care Team [...] Hematology/BMT and Cellular Therapy Program [address] [address] 11/13/2024 1:30 PM EDT Office Visit [facility] Hematology/BMT and Cellular Therapy Program [address] [address] Zonia Hoffman, RODDY 800 [facility] [address] [place] [address] 11/13/2024 3:00 PM EDT Appointment [facility] 800 [place] [address] 11/14/2024 1:00 PM EDT Appointment [facility] [address] [place] [address] 11/15/2024 1:00 PM EDT Appointment [facility] 800 [place] [address] 11/16/2024 1:00 PM EDT Appointment [facility] 800 [place] [address] 11/17/2024 3:00 PM EDT Appointment [facility] 2 744 [place] [address] 11/18/2024 3:00 PM EDT Appointment [facility] 1 744 [place] [address] 11/19/2024 2:00 PM EDT Appointment [facility] 2 744 [place] [address] documented as of this encounter Visit Diagnoses Not on filedocumented in this encounter Additional Health Concerns Assessment Noted Time A fall risk assessment has been complete d for the patient 09/19/2024 8:38 AM EDT A Body Mass Index follow-up plan has been documented for the patient 05/28/2024 1:52 PM EST documented as of this encounter Care Teams Clothing Trades Workers Relationship Specialty Start Date End Date Jevon Vazquez MD [address] [place] [address] #1 #1 Julien JOSEP [id number] PCP - General 03/23/22 documented as of this encounter
--- OUTSIDE RECORDS SUMMARY | 2024-11-12 09:02 | XMS_ITS | Encounter Summary ---
Author Organization Healthcare Address [address] [place] [address] Care Team Providers Care District Fire Management Officer Name Role Phone Jevon Vazquez MD Primary Care Provider [phone] Encounter Details Date Type Department Care Team [...] Hematology/BMT and Cellular Therapy Program [address] [address] 11/13/2024 1:30 PM EDT Office Visit [facility] Hematology/BMT and Cellular Therapy Program [address] [address] Zonia Hoffman, RODDY 800 [facility] [address] [place] [address] 11/13/2024 3:00 PM EDT Appointment [facility] [address] [place] [address] 11/14/2024 1:00 PM EDT Appointment [facility] [address] [place] [address] 11/15/2024 1:00 PM EDT Appointment [facility] [address] [place] [address] 11/16/2024 1:00 PM EDT Appointment [facility] [address] [place] [address] 11/17/2024 3:00 PM EDT Appointment [facility] 2 [address] [place] [address] 11/18/2024 3:00 PM EDT Appointment [facility] 1 [address] [place] [address] 11/19/2024 2:00 PM EDT Appointment [facility] 2 [address] [place] [address] documented as of this encounter Visit Diagnoses Not on filedocumented in this encounter Additional Health Concerns Assessment Noted Time A fall risk assessment has been complete d for the patient 09/19/2024 8:38 AM EDT A Body Mass Index follow-up plan has been documented for the patient 05/28/2024 1:52 PM EST documented as of this encounter Care Teams District Fire Management Officer Relationship Specialty Start Date End Date Jevon Vazquez MD [address] [place] [address] #1 #1 Julien JOSEP [id number] PCP - General 03/23/22 documented as of this encounter
--- OUTSIDE RECORDS SUMMARY | 2024-11-12 09:02 | XMS_ITS | Encounter Summary ---
Author Organization Healthcare Address [address] [place] [address] Care Team Providers Care Binding Bench Worker Name Role Phone Jevon Vazquez MD Primary Care Provider Encounter Details Date Type Department Care Team (Latest Contact Info) Description 11/09/2024 Travel Social History Tobacco Use Types Packs/Day [...] Hematology/BMT and Cellular Therapy Program [address] [address] 11/13/2024 1:30 PM EDT Office Visit [facility] Hematology/BMT and Cellular Therapy Program [address] [address] Zonia Hoffman, RODDY 800 [facility] [address] [place] [address] 11/13/2024 3:00 PM EDT Appointment [facility] 800 [place] [address] 11/14/2024 1:00 PM EDT Appointment [facility] [address] [place] [address] 11/15/2024 1:00 PM EDT Appointment [facility] 800 [place] [address] 11/16/2024 1:00 PM EDT Appointment [facility] [address] [place] [address] 11/17/2024 3:00 PM EDT Appointment [facility] 2 744 [place] [address] 11/18/2024 3:00 PM EDT Appointment [facility] 1 744 [place] [address] 11/19/2024 2:00 PM EDT Appointment [facility] 2 7[address] [place] [address] documented as of this encounter Visit Diagnoses Not on filedocumented in this encounter Additional Health Concerns Assessment Noted Time A fall risk assessment has been complete d for the patient 09/30/2024 9:33 AM EDT A Body Mass Index follow-up plan has been documented for the patient 05/28/2024 1:52 PM EST documented as of this encounter Care Teams Binding Bench Worker Relationship Specialty Start Date End Date Jevon Vazquez MD [address] [place] [address] #1 #1 Julien JOSEP [id number] PCP - General 03/23/22 documented as of this encounter
--- OUTSIDE RECORDS SUMMARY | 2024-11-12 09:02 | XMS_ITS | Encounter Summary ---
Author Organization Healthcare Address [address] [place] [address] Care Team Providers Care Fabrication Welder Name Role Phone Jevon Vazquez MD Primary Care Provider [phone] Encounter Details Date Type Department Care Team [...] Cellular Therapy Program [address] [address] 11/13/2024 1:30 PM EDT Office Visit [facility] Hematology/BMT and Cellular Therapy Program [address] [address] Zonia Hoffman, RODDY 800 [facility] [address] [place] [address] 11/13/2024 3:00 PM EDT Appointment [facility] 800 [place] [address] 11/14/2024 1:00 PM EDT Appointment [facility] [address] [place] [address] 11/15/2024 1:00 PM EDT Appointment [facility] [address] [place] [address] 11/16/2024 1:00 PM EDT Appointment [facility] [address] [place] [address] 11/17/2024 3:00 PM EDT Appointment [facility] 2 744 [place] [address] 11/18/2024 3:00 PM EDT Appointment [facility] 1 744 [place] [address] 11/19/2024 2:00 PM EDT Appointment [facility] 2 744 [place] [address] documented as of this encounter Visit Diagnoses Not on filedocumented in this encounter Additional Health Concerns Assessment Noted Time A fall risk assessment has been complete d for the patient 09/30/2024 9:33 AM EDT A Body Mass Index follow-up plan has been documented for the patient 05/28/2024 1:52 PM EST documented as of this encounter Care Teams Fabrication Welder Relationship Specialty Start Date End Date Jevon Vazquez MD [address] [place] [address] #1 #1 Julien JOSEP [id number] PCP - General 03/23/22 documented as of this encounter
--- OUTSIDE RECORDS SUMMARY | 2024-11-12 09:02 | XMS_ITS | Encounter Summary ---
Author Organization Healthcare Address [address] [place] [address] Care Team Providers Care Family And Consumer Education Teacher Name Role Phone Jevon Vazquez MD Primary Care Provider [phone] Encounter Details Date Type Department Care Team (Latest Contact Info) Description 11/08/2024 Travel Social History Tobacco Use Types Packs/Day [...] Hematology/BMT and Cellular Therapy Program [address] [address] 11/13/2024 1:30 PM EDT Office Visit [facility] Hematology/BMT and Cellular Therapy Program [address] [address] Zonia Hoffman, RODDY 800 [facility] [address] [place] [address] 11/13/2024 3:00 PM EDT Appointment [facility] 800 [place] [address] 11/14/2024 1:00 PM EDT Appointment [facility] [address] [place] [address] 11/15/2024 1:00 PM EDT Appointment [facility] 800 [place] [address] 11/16/2024 1:00 PM EDT Appointment [facility] 800 [place] [address] 11/17/2024 3:00 PM EDT Appointment [facility] 2 [address] [place] [address] 11/18/2024 3:00 PM EDT Appointment [facility] 1 [address] [place] [address] 11/19/2024 2:00 PM EDT Appointment [facility] 2 [address] [place] [address] documented as of this encounter Visit Diagnoses Not on filedocumented in this encounter Additional Health Concerns Assessment Noted Time A fall risk assessment has been complete d for the patient 09/30/2024 9:33 AM EDT A Body Mass Index follow-up plan has been documented for the patient 05/28/2024 1:52 PM EST documented as of this encounter Care Teams Family And Consumer Education Teacher Relationship Specialty Start Date End Date Jevon Vazquez MD [address] [place] [address] #1 #1 Julien JOSEP [id number] PCP - General 03/23/22 documented as of this encounter
--- OUTSIDE RECORDS SUMMARY | 2024-11-12 09:02 | XMS_ITS | Encounter Summary ---
Author Organization Healthcare Address [address] [place] [address] Care Team Providers Care Oil Scout Name Role Phone Jevon Vazquez MD Primary Care Provider [phone] Encounter Details Date Type Department Care Team [...] Hematology/BMT and Cellular Therapy Program [address] [address] 11/13/2024 1:30 PM EDT Office Visit [facility] Hematology/BMT and Cellular Therapy Program [address] [address] Zonia Hoffman, RODDY 800 [facility] [address] [place] [address] 11/13/2024 3:00 PM EDT Appointment [facility] 800 [place] [address] 11/14/2024 1:00 PM EDT Appointment [facility] [address] [place] [address] 11/15/2024 1:00 PM EDT Appointment [facility] 800 [place] [address] 11/16/2024 1:00 PM EDT Appointment [facility] 800 [place] [address] 11/17/2024 3:00 PM EDT Appointment [facility] 2 744 [place] [address] 11/18/2024 3:00 PM EDT Appointment [facility] 1 744 [place] [address] 11/19/2024 2:00 PM EDT Appointment [facility] 2 744 [place] [address] documented as of this encounter Visit Diagnoses Not on filedocumented in this encounter Additional Health Concerns Assessment Noted Time A fall risk assessment has been complete d for the patient 09/30/2024 9:33 AM EDT A Body Mass Index follow-up plan has been documented for the patient 05/28/2024 1:52 PM EST documented as of this encounter Care Teams Oil Scout Relationship Specialty Start Date End Date Jevon Vazquez MD [address] [place] [address] #1 #1 Julien JOSEP [id number] PCP - General 03/23/22 documented as of this encounter
--- OUTSIDE RECORDS SUMMARY | 2024-11-12 09:02 | XMS_ITS | Encounter Summary ---
Author Organization Healthcare Address [address] [place] [address] Care Team Providers Care Checkroom Chief Name Role Phone Jevon Vazquez MD Primary Care Provider [phone] Encounter Details Date Type Department Care Team (Latest Contact Info) Description 11/07/2024 Travel Social History Tobacco Use Types Packs/Day [...] Hematology/BMT and Cellular Therapy Program [address] [address] 11/13/2024 1:30 PM EDT Office Visit [facility] Hematology/BMT and Cellular Therapy Program [address] [address] Zonia Hoffman, RODDY 800 [facility] [address] [place] [address] 11/13/2024 3:00 PM EDT Appointment [facility] 800 [place] [address] 11/14/2024 1:00 PM EDT Appointment [facility] [address] [place] [address] 11/15/2024 1:00 PM EDT Appointment [facility] 800 [place] [address] 11/16/2024 1:00 PM EDT Appointment [facility] 800 [place] [address] 11/17/2024 3:00 PM EDT Appointment [facility] 2 744 [place] [address] 11/18/2024 3:00 PM EDT Appointment [facility] 1 [address]44 [place] [address] 11/19/2024 2:00 PM EDT Appointment [facility] 2 [address] [place] [address] documented as of this encounter Visit Diagnoses Not on filedocumented in this encounter Additional Health Concerns Assessment Noted Time A fall risk assessment has been complete d for the patient 09/30/2024 9:33 AM EDT A Body Mass Index follow-up plan has been documented for the patient 05/28/2024 1:52 PM EST documented as of this encounter Care Teams Checkroom Chief Relationship Specialty Start Date End Date Jevon Vazquez MD [address] [place] [address] #1 #1 Julien JOSEP [id number] PCP - General 03/23/22 documented as of this encounter
--- OUTSIDE RECORDS SUMMARY | 2024-11-12 09:02 | XMS_ITS | Encounter Summary ---
Author Organization Healthcare Address [address] [place] [address] Care Team Providers Care Tar Heater Name Role Phone Jevon Vazquez MD Primary [...] Hematology/BMT and Cellular Therapy Program [address] [address] 11/13/2024 1:30 PM EDT Office Visit [facility] Hematology/BMT and Cellular Therapy Program [address] [address] Zonia Hoffman, RODDY 800 [facility] [address] [place] [address] 11/13/2024 3:00 PM EDT Appointment [facility] 800 [place] [address] 11/14/2024 1:00 PM EDT Appointment [facility] Infusion 800 [place] [address] 11/15/2024 1:00 PM EDT Appointment [facility] [address] [place] [address] 11/16/2024 1:00 PM EDT Appointment [facility] 800 [place] [address] 11/17/2024 3:00 PM EDT Appointment [facility] 2 [address] [place] [address] 11/18/2024 3:00 PM EDT Appointment [facility] 1 744 [place] [address] 11/19/2024 2:00 PM EDT Appointment [facility] 2 [address] [place] [address] documented as of this encounter Visit Diagnoses Not on filedocumented in this encounter Additional Health Concerns Assessment Noted Time A fall risk assessment has been complete d for the patient 09/30/2024 9:33 AM EDT A Body Mass Index follow-up plan has been documented for the patient 05/28/2024 1:52 PM EST documented as of this encounter Care Teams Tar Heater Relationship Specialty Start Date End Date Jevon Vazquez MD [address] [place] [address] #1 #1 Julien JOSEP [id number] PCP - General 03/23/22 documented as of this encounter
--- OUTSIDE RECORDS SUMMARY | 2024-11-12 09:02 | XMS_ITS | Encounter Summary ---
Author Organization Healthcare Address [address] [place] [address] Care Team Providers Care Press Room Supervisor Name Role Phone Jevon Vazquez MD Primary Care Provider [phone] Encounter Details Date Type Department Care Team ([facility] st Contact Info) Description 10/28/2024 Telephone [facility] Hematology/BMT and Cellular Therapy Program [address] [address] Zonia Hoffman, JUMPBASTING LINING BASTER 800 [facility] [address] [place] [address] Social History Tobacco Use Types Packs/Day Years [...] go over her labs results Callback number: [phone] documented in this encounter Plan of Treatment Upcoming Encounters Date Type Department Care Team (Late st Contact Info) Description 11/13/2024 1:00 PM EDT Clinical Support [facility] Hematology/BMT and Cellular Therapy Program [address] [address] 11/13/2024 1:30 PM EDT Office Visit PAV Hematology/BMT and Cellular Therapy Program [address] [address] Zonia Hoffman, JUMPBASTING LINING BASTER 800 [facility] [address] [place] [address] 11/13/2024 3:00 PM EDT Appointment [facility]fusion 800 [place] [address] 11/14/2024 1:00 PM EDT Appointment [facility] 800 [place] [address] 11/15/2024 1:00 PM EDT Appointment [facility] 800 [place] [address] 11/16/2024 1:00 PM EDT Appointment [facility] 800 [place] [address] 11/17/2024 3:00 PM EDT Appointment [facility] 2 744 [place] [address] 11/18/2024 3:00 PM EDT Appointment [facility] 1 744 [place] [address] 11/19/2024 2:00 PM EDT Appointment [facility] 2 [address] [place] [address] documented as of this encounter Visit Diagnoses Not on filedocumented in this encounter Additional Health Concerns Assessment Noted Time A fall risk assessment has been complete d for the patient 09/30/2024 9:33 AM EDT A Body Mass Index follow-up plan has been documented for the patient 05/28/2024 1:52 PM EST documented as of this encounter Care Teams Press Room Supervisor Relationship Specialty Start Date End Date Jevon Vazquez MD [address] [place] [address] #1 #1 JOSEP [place] [address] PCP - General 03/23/22 documented as of this encounter
--- OUTSIDE RECORDS SUMMARY | 2024-11-12 09:02 | XMS_ITS | Encounter Summary ---
Author Organization [facility] Address [address] [place] [address] Care Team Providers Care Administrative Dietitian Name Role Phone Jevon Vazquez MD Primary Care Provider [phone] Reason for Visit * Reason Comments Med Refill Encounter Details Date Type Department Care Team ([facility] Contact Info) Description 10/15/2024 Refill [facility] CC Hematology/BMT and Cellular Therapy Program [address] [phone] New Mckinney MD 800 [facility] [address] [place] [address] Social History Tobacco Use Types Packs/Day Years [...] Hematology/BMT and Cellular Therapy Program [address] [address] 11/13/2024 1:30 PM EDT Office Visit [facility] CC Hematology/BMT and Cellular Therapy Program [address] [address] Zonia Hoffman, LOAN OPERATIONS SPECIALIST 800 [facility] [address] [place] [address] 11/13/2024 3:00 PM EDT Appointment [facility] Infusion 800 [place] [address] 11/14/2024 1:00 PM EDT Appointment [facility] [address] [place] [address] 11/15/2024 1:00 PM EDT Appointment [facility] [address] [place] [address] 11/16/2024 1:00 PM EDT Appointment [facility] [address] [place] [address] 11/17/2024 3:00 PM EDT Appointment [facility] 2 7[address] [place] [address] 11/18/2024 3:00 PM EDT Appointment [facility] 1 [address] [place] [address] 11/19/2024 2:00 PM EDT Appointment [facility] 2 [address] [place] [address] documented as of this encounter Visit Diagnoses Not on filedocumented in this encounter Additional Health Concerns Assessment Noted Time A fall risk assessment has been complete d for the patient 09/30/2024 9:33 AM EDT A Body Mass Index follow-up plan has been documented for the patient 05/28/2024 1:52 PM EST documented as of this encounter Care Teams Administrative Dietitian Relationship Specialty Start Date End Date Jevon Vazquez MD [address] [place] [address] #1 #1 JulienJOSEP [address] PCP - General 03/23/22 documented as of this encounter
--- OUTSIDE RECORDS SUMMARY | 2024-11-12 09:02 | XMS_ITS | Encounter Summary ---
Author Organization [facility] Address [address] [place] [address] Care Team Providers Care Paint Preparer Name Role Phone Jevon Vazquez MD Primary Care Provider [phone] Reason for Visit * Reason Comments Med Refill Encounter Details Date Type Department Care Team ([facility] Contact Info) Description 10/14/2024 Refill [facility] Hematology/BMT and Cellular Therapy Program [address] [phone] New Mckinney MD 800 [facility] [address] [place] [address] Social History Tobacco Use Types Packs/Day Years [...] Care Team ([facility] Contact Info) Description 11/13/2024 1:00 PM EDT Clinical Support P[facility] CC Hematology/BMT and Cellular Therapy Program [address] [address] 11/13/2024 1:30 PM EDT Office Visit [facility] CC Hematology/BMT and Cellular Therapy Program [address] [address] Zonia Hoffman, LABEL MAKER 800 [facility] [address] [place] [address] 11/13/2024 3:00 PM EDT Appointment [facility] 800 [place] [address] 11/14/2024 1:00 PM EDT Appointment [facility] 800 [place] [address] 11/15/2024 1:00 PM EDT Appointment [facility] 800 [place] [address] 11/16/2024 1:00 PM EDT Appointment [facility] 800 [place] [address] 11/17/2024 3:00 PM EDT Appointment [facility] 2 [address] [place] [address] 11/18/2024 3:00 PM EDT Appointment [facility] 1 [address] [place] [address] 11/19/2024 2:00 PM EDT Appointment [facility] 2 [address] [place] [address] documented as of this encounter Visit Diagnoses Not on filedocumented in this encounter Additional Health Concerns Assessment Noted Time A fall risk assessment has been complete d for the patient 09/30/2024 9:33 AM EDT A Body Mass Index follow-up plan has been documented for the patient 05/28/2024 1:52 PM EST documented as of this encounter Care Teams Paint Preparer Relationship Specialty Start Date End Date Jevon Vazquez MD [address] [place] [address] #1 #1 JulienJOSEP [id number] PCP - General 03/23/22 documented as of this encounter
--- OUTSIDE RECORDS SUMMARY | 2024-11-12 09:02 | XMS_ITS | Encounter Summary ---
Author Organization Healthcare Address [address] [place] [address] Care Team Providers Care Steward Racetrack Name Role Phone Jevon Vazquez MD Primary Care Provider [phone] Encounter Details Date Type Department Care Team [...] Hematology/BMT and Cellular Therapy Program [address] [address] 11/13/2024 1:30 PM EDT Office Visit [facility] Hematology/BMT and Cellular Therapy Program [address] [address] Zonia Hoffman, RODDY 800 [facility] [address] [place] [address] 11/13/2024 3:00 PM EDT Appointment [facility] 800 [place] [address] 11/14/2024 1:00 PM EDT Appointment [facility] [address] [place] [address] 11/15/2024 1:00 PM EDT Appointment [facility] 800 [place] [address] 11/16/2024 1:00 PM EDT Appointment [facility] [address] [place] [address] 11/17/2024 3:00 PM EDT Appointment [facility] 2 [address] [place] [address] 11/18/2024 3:00 PM EDT Appointment [facility] 1 [address] [place] [address] 11/19/2024 2:00 PM EDT Appointment [facility] 2 [address] [place] [address] documented as of this encounter Visit Diagnoses Not on filedocumented in this encounter Additional Health Concerns Assessment Noted Time A fall risk assessment has been complete d for the patient 09/30/2024 9:33 AM EDT A Body Mass Index follow-up plan has been documented for the patient 05/28/2024 1:52 PM EST documented as of this encounter Care Teams Steward Racetrack Relationship Specialty Start Date End Date Jevon Vazquez MD [address] [place] [address] #1 #1 Julien JOSEP [address] PCP - General 03/23/22 documented as of this encounter
--- OUTSIDE RECORDS SUMMARY | 2024-11-12 09:02 | XMS_ITS | Encounter Summary ---
Author Organization Healthcare Address [address] [place] [address] Care Team Providers Care Traffic Engineering Technician Name Role Phone Jevon Vazquez MD Primary Care Provider [phone] Encounter Details Date Type Department Care Team (Latest Contact Info) Description 11/11/2024 Travel Social History Tobacco Use Types Packs/Day [...] Hematology/BMT and Cellular Therapy Program [address] [address] 11/13/2024 1:30 PM EDT Office Visit [facility] Hematology/BMT and Cellular Therapy Program [address] [address] Zonia Hoffman, RODDY 800 [facility] [address] [place] [address] 11/13/2024 3:00 PM EDT Appointment [facility] 800 [place] [address] 11/14/2024 1:00 PM EDT Appointment [facility] [address] [place] [address] 11/15/2024 1:00 PM EDT Appointment [facility] 800 [place] [address] 11/16/2024 1:00 PM EDT Appointment [facility] 800 [place] [address] 11/17/2024 3:00 PM EDT Appointment [facility] 2 744 [place] [address] 11/18/2024 3:00 PM EDT Appointment [facility] 1 744 [place] [address] 11/19/2024 2:00 PM EDT Appointment [facility] 2 7[address] [place] [address] documented as of this encounter Visit Diagnoses Not on filedocumented in this encounter Additional Health Concerns Assessment Noted Time A fall risk assessment has been complete d for the patient 09/30/2024 9:33 AM EDT A Body Mass Index follow-up plan has been documented for the patient 05/28/2024 1:52 PM EST documented as of this encounter Care Teams Traffic Engineering Technician Relationship Specialty Start Date End Date Jevon Vazquez MD [address] [place] [address] #1 #1 [place] [id number] PCP - General 03/23/22 documented as of this encounter
--- OUTSIDE RECORDS SUMMARY | 2024-11-12 09:02 | XMS_ITS | Encounter Summary ---
Author Organization [facility] Address [address] [place] [address] Care Team Providers Care Area Coordinator Name Role Phone Jevon Vazquez MD Primary Care Provider [phone] Reason for Visit * Reason Comments Med Refill Encounter Details Date Type Department Care Team ([facility] Contact Info) Description 11/08/2024 Refill [facility] Hematology/BMT and Cellular Therapy Program [address] [phone] [place]in[place] MD 800 [facility] [address] [place] [phone] Social History Tobacco Use Types Packs/Day Years [...] Upcoming Encounters Date Type Department Care Team ([facility] Contact Info) Description 11/13/2024 1:00 PM EDT Clinical Support [facility] Hematology/BMT and Cellular Therapy Program [address] [phone] 11/13/2024 1:30 PM EDT Office Visit [facility] Hematology/BMT and Cellular Therapy Program [address] [address] Zonia Hoffman, CHIEF DIGITAL OFFICER 800 [facility] [address] [place] [address] 11/13/2024 3:00 PM EDT Appointment [facility] 800 [place] [address] 11/14/2024 1:00 PM EDT Appointment [facility] [address] [place] [address] 11/15/2024 1:00 PM EDT Appointment [facility] [address] [place] [address] 11/16/2024 1:00 PM EDT Appointment [facility] [address] [place] [address] 11/17/2024 3:00 PM EDT Appointment [facility] 2 [address] [place] [address] 11/18/2024 3:00 PM EDT Appointment [facility] 1 [address] [place] [address] 11/19/2024 2:00 PM EDT Appointment [facility] 2 [address] [place] [address] documented as of this encounter Visit Diagnoses Not on filedocumented in this encounter Additional Health Concerns Assessment Noted Time A fall risk assessment has been complete d for the patient 09/30/2024 9:33 AM EDT A Body Mass Index follow-up plan has been documented for the patient 05/28/2024 1:52 PM EST documented as of this encounter Care Teams Area Coordinator Relationship Specialty Start Date End Date Jevon Vazquez MD [address] [place] [address] #1 #1 [place]ienJOSEP [id number] PCP - General 03/23/22 documented as of this encounter
--- OUTSIDE RECORDS SUMMARY | 2024-11-12 09:03 | XMS_ITS | Encounter Summary ---
Author Organization [facility] Address [address] [place] [address] Care Team Providers Care Bleach Liquor Maker Name Role Phone Jevon Vazquez MD Primary Care Provider [phone] Encounter Details Date Type Department Care Team ([facility] Contact Info) Description 10/08/2024 Orders Only [facility] Hematology/BMT and Cellular Therapy Program [address] [phone] 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, RN [facility] HEMATOLOG[facility] PROGRAM CLINIC Acute [...] Upcoming Encounters Date Type Department Care Team ([facility] Contact Info) Description 11/13/2024 1:00 PM EDT Clinical Support [facility] Hematology/BMT and Cellular Therapy Program [address] [phone] 11/13/2024 1:30 PM EDT Office Visit [facility] Hematology/BMT and Cellular Therapy Program [address] [phone] Zonia Hoffman, RECORDS MANAGEMENT TECHNICIAN 800 [facility] [address] [place] [address] 11/13/2024 3:00 PM EDT Appointment [facility] [address] [place] [address] 11/14/2024 1:00 PM EDT Appointment [facility] 800 [place] [address] 11/15/2024 1:00 PM EDT Appointment [facility] 800 [place] [address] 11/16/2024 1:00 PM EDT Appointment [facility] 800 [place] [address] 11/17/2024 3:00 PM EDT Appointment [facility] 2 744 [place] [address] 11/18/2024 3:00 PM EDT Appointment [facility] 1 [address] [place] [address] 11/19/2024 2:00 PM EDT Appointment [facility] 2 [address] [place] [address] Scheduled Orders Name Type Priority Associated Diagnoses [...] documented as of this encounter Care Teams Bleach Liquor Maker Relationship Specialty Start Date End Date Jevon Vazquez MD [address] [place] [address] #1 #1 [place] [address] PCP - General 03/23/22 documented as of this encounter
--- OUTSIDE RECORDS SUMMARY | 2024-11-12 09:03 | XMS_ITS | Encounter Summary ---
Author Organization Healthcare Address [address] [place] [address] Care Team Providers Care Charter Bus Driver Name Role Phone Jevon Vazquez MD Primary Care Provider [phone] Encounter Details Date Type Department Care Team [...] Hematology/BMT and Cellular Therapy Program [address] [address] 11/13/2024 1:30 PM EDT Office Visit [facility] Hematology/BMT and Cellular Therapy Program [address] [address] Zonia Hoffman, RODDY 800 [facility] [address] [place] [address] 11/13/2024 3:00 PM EDT Appointment [facility] 800 [place] [address] 11/14/2024 1:00 PM EDT Appointment [facility] [address] [place] [address] 11/15/2024 1:00 PM EDT Appointment [facility] 800 [place] [address] 11/16/2024 1:00 PM EDT Appointment [facility] 800 [place] [address] 11/17/2024 3:00 PM EDT Appointment [facility] 2 744 [place] [address] 11/18/2024 3:00 PM EDT Appointment [facility] 1 744 [place] [address] 11/19/2024 2:00 PM EDT Appointment [facility] 2 744 [place] [address] documented as of this encounter Visit Diagnoses Not on filedocumented in this encounter Additional Health Concerns Assessment Noted Time A fall risk assessment has been complete d for the patient 09/19/2024 8:38 AM EDT A Body Mass Index follow-up plan has been documented for the patient 05/28/2024 1:52 PM EST documented as of this encounter Care Teams Charter Bus Driver Relationship Specialty Start Date End Date Jevon Vazquez MD [address] [place] [address] #1 #1 Jul[place]SEP [id number] PCP - General 03/23/22 documented as of this encounter
--- OUTSIDE RECORDS SUMMARY | 2024-11-12 09:03 | XMS_ITS | Encounter Summary ---
Author Organization Healthcare Address [address] [place] [address] Care Team Providers Care Technology Trainer Name Role Phone Jevon Vazquez MD Primary Care Provider [phone] Encounter Details Date Type Department Care Team [...] Hematology/BMT and Cellular Therapy Program [address] [address] 11/13/2024 1:30 PM EDT Office Visit [facility] Hematology/BMT and Cellular Therapy Program [address] [address] Zonia Hoffman, RODDY 800 [facility] [address] [place] [address] 11/13/2024 3:00 PM EDT Appointment [facility] 800 [place] [address] 11/14/2024 1:00 PM EDT Appointment [facility] [address] [place] [address] 11/15/2024 1:00 PM EDT Appointment [facility] 800 [place] [address] 11/16/2024 1:00 PM EDT Appointment [facility] 800 [place] [address] 11/17/2024 3:00 PM EDT Appointment [facility] 2 744 [place] [address] 11/18/2024 3:00 PM EDT Appointment [facility] 1 744 [place] [address] 11/19/2024 2:00 PM EDT Appointment [facility] 2 [address] [place] [address] documented as of this encounter Visit Diagnoses Not on filedocumented in this encounter Additional Health Concerns Assessment Noted Time A fall risk assessment has been complete d for the patient 09/19/2024 8:38 AM EDT A Body Mass Index follow-up plan has been documented for the patient 05/28/2024 1:52 PM EST documented as of this encounter Care Teams Technology Trainer Relationship Specialty Start Date End Date Jevon Vazquez MD [address] [place] [address] #1 #1 Julien [place] [id number] PCP - General 03/23/22 documented as of this encounter
--- OUTSIDE RECORDS SUMMARY | 2024-11-12 09:03 | XMS_ITS | Encounter Summary ---
Author Organization Healthcare Address [address] [place] [address] Care Team Providers Care Dance Studio Manager Name Role Phone Jevon Vazquez MD Primary Care Provider [phone] Encounter Details Date Type Department Care Team [...] Hematology/BMT and Cellular Therapy Program [address] [address] 11/13/2024 1:30 PM EDT Office Visit [facility] Hematology/BMT and Cellular Therapy Program [address] [address] Zonia Hoffman, RODDY 800 [facility] [address] [place] [address] 11/13/2024 3:00 PM EDT Appointment [facility] 800 [place] [address] 11/14/2024 1:00 PM EDT Appointment [facility] [address] [place] [address] 11/15/2024 1:00 PM EDT Appointment [facility] 800 [place] [address] 11/16/2024 1:00 PM EDT Appointment [facility] 800 [place] [address] 11/17/2024 3:00 PM EDT Appointment [facility] 2 744 [place] [address] 11/18/2024 3:00 PM EDT Appointment [facility] 1 744 [place] [address] 11/19/2024 2:00 PM EDT Appointment [facility] 2 744 [place] [address] documented as of this encounter Visit Diagnoses Not on filedocumented in this encounter Additional Health Concerns Assessment Noted Time A fall risk assessment has been complete d for the patient 09/19/2024 8:38 AM EDT A Body Mass Index follow-up plan has been documented for the patient 05/28/2024 1:52 PM EST documented as of this encounter Care Teams Dance Studio Manager Relationship Specialty Start Date End Date Jevon Vazquez MD [address] [place] [address] #1 #1 Julien [place]SEP [address] PCP - General 03/23/22 documented as of this encounter
[2024-11-12 09:30] LABS: Alanine Aminotransferase 12 U/L (12-78); Albumin Level 3.6 g/dl (3.5-5.0); Albumin/Globulin Ratio 1.9 (1.1-1.8); Alkaline Phosphatase 43 U/L (38-126); Anion Gap 10.2 mEq/L (5-15); Aspartate Amino Transferase 32 U/L (14-36); Bilirubin,Total 0.2 mg/dl (0.2-1.3); Blood Urea Nitrogen 25 mg/dl (7-17); Calcium 9.9 mg/dl (8.4-10.2); Carbon Dioxide 24 mmol/L (22.0-30.0); Chloride 108 mmol/L (98-107); Creatinine Clearance Estimated 37 mL/min (50-200); Creatinine,Serum 1.20 mg/dl (0.52-1.04); Estimated Glomerular Filt Rate 44 ml/min (>60); GFR (African American) 53 ML/MIN (>60); Globulin 1.9 g/dL (1.3-3.2); Glucose 138 mg/dl (74-100); Potassium 4.2 mmoL/L (3.5-5.1); Sodium 138 mmol/L (136-145); Total Protein,Serum 5.5 g/dl (6.3-8.2)
[2024-11-12 09:43] LABS: Hematocrit 27.2 % (37.0-47.0); Hemoglobin 8.9 g/dL (12.2-16.2); Immature Granulocytes % 0.5 %; Mean Corpuscular HGB Conc 32.7 g/dL (31.8-35.4); Mean Corpuscular Hemoglobin 33.1 pg (27.0-31.2); Mean Corpuscular Volume 101.1 fl (81-99); Nucleated Red Blood Cells % 0 %; Red Blood Count 2.69 M/mm3 (4.20-5.40); White Blood Count 2.1 K/mm3 (4.8-10.8)
[2024-11-12 09:44] LABS: Platelet Count 15 K/mm3 (142-424)
[2024-11-12] MEDS: SODIUM CHLORIDE 0.9% 10ML FLUSH SYRINGE 10 ML IV (09:50)
== END 2024-11-12 23:59 | disposition home or self-care (01) ==
PROVIDERS: PCP Family Medicine; Visit Provider Internal Medicine Medical Oncology
DX: C92.00 Acute myeloblastic leukemia, not having achieved remission (principal)
CPT/HCPCS: 36591; 80053; 85025; J1642

== ENCOUNTER 2024-11-14 08:59 | Outpatient (CLI) | payer MEDICARE, BC, SELFPAY ==
--- OUTSIDE RECORDS SUMMARY | 2024-09-19 07:30 | XMS_ITS | Encounter Summary ---
Author Organization [facility] Address [address] [place] [address] Care Team Providers Care Drop Press Hand Name Role Phone Jevon Vazquez MD Primary Care Provider [phone] Reason for Visit * Reason Comments Nurse Visit Encounter Details Date Type Department Care Team ([facility] Contact Info) Description 09/19/2024 7:30 AM EDT Clinical Support [facility] Hematology/BMT and Cellular Therapy Program [address] [phone] Social History Tobacco Use Types Packs/Day Years [...] Upcoming Encounters Date Type Department Care Team ([facility] Contact Info) Description 11/28/2024 2:00 PM EDT Clinical Support [facility] Hematology/BMT and Cellular Therapy Program [address] [phone] 11/28/2024 2:30 PM EDT Office Visit [facility] Hematology/BMT and Cellular Therapy Program [address] [phone] Zonia Hoffman, CUTTING DEPARTMENT SUPERVISOR 800 [facility] [address] [place] [address] 11/28/2024 4:00 PM EDT Appointment [facility] 1 [address] [place] [address] 11/29/2024 1:00 PM EDT Appointment [facility] 1 [address] [place] [address] 11/30/2024 1:00 PM EDT Appointment [facility] 1 [address] [place] [address] 12/01/2024 1:00 PM EDT Appointment [facility] 2 [address] [place] [address] 12/02/2024 2:30 PM EDT Appointment [facility] 2 [address] [place] [address] 12/03/2024 2:00 PM EDT Appointment [facility] 1 [address] [place] [address] 12/04/2024 1:00 PM EDT Appointment [facility] 800 [place] [address] documented as of this encounter Visit Diagnoses Not on filedocumented in this encounter Additional Health Concerns Assessment Noted Time A fall risk assessment has been complete d for the patient 09/19/2024 8:38 AM EDT A Body Mass Index follow-up plan has been documented for the patient 05/28/2024 1:52 PM EST documented as of this encounter Care Teams Drop Press Hand Relationship Specialty Start Date End Date Jevon Vazquez MD [address] [place] [address] #1 [address]1 [place] [address] PCP - General 03/23/22 documented as of this encounter
--- OUTSIDE RECORDS SUMMARY | 2024-09-19 09:30 | XMS_ITS | Encounter Summary ---
Author Organization Healthcare Address [address] [place] [address] Care Team Providers Care Sports Bookmaker Name Role Phone Jevon Vazquez MD Primary Care Provider [phone] Reason for Visit * Reason Comments Follow-up Encounter Details Date Type Department Care Team (Latest Contact Info) Description 09/19/2024 9:30 AM EDT Clinical Support [facility] Cancer Acute Treatment Clinic [address] [place] [address] Acute myeloid leukemia not having achieved remission [...] Care Team (Late st Contact Info) Description 11/28/2024 2:00 PM EDT Clinical Support [facility] Hematology/BMT and Cellular Therapy Program [address] [address] 11/28/2024 2:30 PM EDT Office Visit [facility] Hematology/BMT and Cellular Therapy Program [address] [address] Zonia Hoffman, ORGAN GRINDER [address] [facility] [address] [place] [address] 11/28/2024 4:00 PM EDT Appointment [facility] Infusion Clinic 1 [address] [place] [address] 11/29/2024 1:00 PM EDT Appointment [facility] Infusion [facility] 1 [address] [place] [address] 11/30/2024 1:00 PM EDT Appointment [facility] Infusion [facility] 1 [address] [place] [address] 12/01/2024 1:00 PM EDT Appointment [facility] Infusion [facility] 2 [address] [place] [address] 12/02/2024 2:30 PM EDT Appointment [facility] Infusion [facility] 2 [address] [place] [address] 12/03/2024 2:00 PM EDT Appointment [facility] 1 [address] [place] [address] 12/04/2024 1:00 PM EDT Appointment [facility] [address] [place] [address] documented as of this encounter Procedures Procedure Name Priority Date/Time Associated Diagnosis Comments PLATELET COUNT, BLOOD STAT 09/19/2024 10:04 AM EDT PREPARE PLATELETS Routine 09/19/2024 9:0 8 AM EDT documented in this encounter Results * (ABNORMAL) Platelet count (09/19/2024 10:04 AM EDT) Platelet Count 61(L) 155 - 369 10*3/uL LAB HEMATOLOGY METHOD 09/19/2024 10:19 AM EDT [facility] Blood Blood sample taken from central line / Unknown (Port) Long-term Catheter / Unknown 09/19/2024 10:04 AM EDT 09/19/2024 10:18 AM EDT us New Mckinney MD LAB BLOOD ORDERABLES Final Re sult [facility] [address] [place] [address] * Transfuse platelets, Irradiated (09/19/2024 10:02 AM EDT) us Lexi Ferraro APRN BLOOD TRANSFUSION ORDERABL ES Final Result * Prepare Leukocyte Reduced Platelets (09/19/2024 9:08 AM EDT) Product Code [id number] CH BLOO D BANK Dispense Status Transfused BLOOD BANK Blood Expiration Date [id number] BLOOD BANK Unit Number [id number] CH B LOOD BANK Product Blood Type 6200 BLOOD BANK Blood Type A+ BLOOD BANK us Provider Not In System BLOOD BANK PRODUCT ORD ERABLES Final Result Performing Organization Address City/State/[facility] Co de Phone Number BLOOD BANK [address] [place] [address], documented in this encounter Visit Diagnoses Diagnosis [...] documented as of this encounter Care Teams Sports Bookmaker Relationship Specialty Start Date End Date Jevon Vazquez MD [address] [place] [address] #1 #1 [place] [address] PCP - General 03/23/22 documented as of this encounter
--- OUTSIDE RECORDS SUMMARY | 2024-09-19 12:00 | XMS_ITS | Encounter Summary ---
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) Procedures Leukemia/Lymphoma - Immunophenotyping by Flow Cytometry New Mckinney MD [address] [facility] Cancer [address] [address] Phone: tel: fax: Referral ID Status Reason Start Date Expiration Date V isits Requested Visits Authorized [id number] Authorized 09/11/2024 03/13/2026 1 1 Encounter Details Date Type Department Care Team (Latest Contact Info) Description 09/19/2024 12:00 PM EDT Procedure Visit [facility] Hematology/BMT and Cellular Therapy Program [address] [address] Lexi Ferraro, RODDY 800 [facility] Cancer [address] [address] Acute myeloid leukemia not having [...] to surronding structures. Alternatives discussed: Delayed treatment [place] protocol: Procedure explained and questions answered to [...] Upcoming Encounters Date Type Department Care Team ([facility] st Contact Info) Description 11/28/2024 2:00 PM EDT Clinical Support [facility] Hematology/BMT and Cellular Therapy Program [address] [address] 11/28/2024 2:30 [address] EDT Office [address] [facility] Hematology/BMT and Cellular Therapy Program [address] [phone] Zonia Hoffman APRN 800 [facility] [address] [place] [phone] 11/28/2024 4:00 PM EDT Appointment [facility] Infusion [facility] [address] [place] [address] 11/29/2024 1:00 PM EDT Appointment [facility] In[facility] [address] [place] [address] 11/30/2024 1:00 PM EDT Appointment [facility] [address] [place] [address] 12/01/2024 1:00 PM EDT Appointment [facility] [address] [place] [address] 12/02/2024 2:30 PM EDT Appointment [facility] [address] [place] [address] 12/03/2024 2:00 PM EDT Appointment [facility] [address] [place] [address] 12/04/2024 1:00 PM EDT Appointment [facility] [address] [place] [address] documented as of this encounter Procedures Procedure [...] to surronding structures. Alternatives discussed: Delayed treatment [place] protocol: Procedure explained and questions answered to [...] Type Bone Marrow 09/24/2024 2:37 PM EDT [facility] Clinical Indication Myelodysplastic Syndrome 09/24/2024 2:37 PM EDT [facility] Specimen Adequacy Adequate 025 2:37 PM EDT [facility] Chromosome Analysis Result Giemsa-banded metaphase cells from unstimulated bone marrow cultures showed a 46,XX[20] chromosome pattern. 09/24/2024 2:37 PM EDT [facility] Interpretation Normal female chromosome analysis. No clonal abnormalities were detected at current resolution. Clinical correlation is recommended. # cells counted = 20 # cells analyzed = 20 # cells karyotyped = 2 Band resolution: 450-525 09/24/2024 2:37 PM EDT [facility] Pathologist Signature Reviewed by: Corey Tejada 09/24/2024 2:37 PM EDT [facility] Bone Marrow Non-blood Collection / Unknown 09/19/2024 7:29 AM EDT 09/19/2024 12:35 PM EDT us New Mckinney MD LAB CYTOGENETICS ORDERABLES F inal Result [facility] [address] [place] [address] * Myeloid Focused Panel, 50 gene (09/19/2024 7:29 AM EDT) Interpretation The following two (2) genes, TP53 and DNMT3A, with persistent variants have been detected in this bone marrow specimen. The variant, p.[id number], in TP53 gene and the variant, p.Pph404arg, in the RUNX 1 gene are not detectable at current cutoff and coverage established in this lab. Gene: TP53 Mutation: c.814G>A; p.Ilo231Ihk Allele Frequency (%): 37% (45% Dec 2023) ID: [id number] Gene: DNMT3A Mutation: c.1522delC; p.[id number] 3 Allele Frequency (%): 36% (48% Dec 2023) Additional Details on Mutation Identified: Gene Transcript Genome Chrom Coordinate RefVar DNMT3A [id number] Hg19 2 [id number] delC TP53 [id number] Hg19 17 [id number] G>A 09/29/2024 4:05 PM EDT [facility] Methodology The following 50 genes were [...] then sequenced on the Illumina NextSeq 2000 ([employer] [place]). A custom bioinformatics pipeline aligns [...] treatment of hematologic malignancies. 09/29/2024 4:05 PM EDT [facility] Disclaimer This test was developed and its performance characteristics determined by the Clinical Molecular and Genomic Pathology Laboratory at the [facility]. It has not been cleared [...] clinical laboratory testing. 09/29/2024 4:05 PM EDT [facility] Pathologist Signature Reviewed by: Corey Tejada 09/29/2024 4:05 PM EDT [facility] Bone Marrow Specimen from bone marrow obtained by aspiration / Unknown Non-blood Collection / Unknown 09/19/2024 7:29 AM EDT 09/19/2024 12:03 PM EDT us New Mckinney MD LAB MOLECULAR DIAGNOSTICS ORD ERABLES Final Result [facility] [place] [address], * Leukemia/Lymphoma - Immunophenotyping by Flow Cytometry (09/19/2024 7:29 AM EDT) Clinical Indication AML 09/22/2024 10:29 AM EDT [facility] Flow Cytometry Interpretation A. BONE MARROW FOR FLOW CYTOMETRY: - MIXED MARROW ELEMENTS WITH NO EVIDENCE OF INCREASED BLASTS OR ABNORMAL LYMPHOID POPULATIONS, SEE COMMENT. 09/22/2024 10:29 AM EDT [facility] Comments CD45/side scatter analysis shows [...] surface light chains 09/22/2024 10:29 AM EDT [facility] Disclaimer This test was developed and its performance characteristics determined by the Immuno-Molecular Pathology Laboratory at the [facility]. It has not been cleared [...] on the report. 09/22/2024 10:29 AM EDT [facility] Pathologist Signature Reviewed by: Lisandra Epstein MD 09/22/2024 10:29 AM EDT [facility] MRD Indicated Test Not Indicated 12/2024 10:29 AM EDT [facility] Bone Marrow Specimen from bone marrow obtained by aspiration / Unknown Non-blood Collection / Unknown 09/19/2024 7:29 AM EDT 09/19/2024 12:13 PM EDT us New Mckinney MD LAB FLOW CYTOMETRY ORDERABLES Final Result [facility] [address] [place] [address] * (ABNORMAL) CBC and differential (09/19/2024 7:29 AM EDT) WBC Count 2.70(L) 3.70 - 10.30 10*3/uL LAB HEMATOLOGY METHOD 09/19/2024 9:13 AM EDT [facility] RBC Count 1.86(L) 3.90 - 5.20 10*6/uL LAB HEMATOLOGY METHOD 09/19/2024 9:13 AM EDT [facility] HGB 7.1(L) 11.2 - 15.7 g/dL LAB HEMATOLOGY METHOD 09/19/2024 9:13 AM EDT [facility] HCT 21.5(L) 34.0 - 45.0 % LAB HEMATOLOGY METHOD 09/19/2024 9:13 AM EDT [facility] Platelet Count 14(LL) 155 - 369 10*3/uL LAB HEMATOLOGY METHOD 09/19/2024 9:13 AM EDT [facility] MCV 116(H) 79 - 98 fL LAB HEMATOLOGY METHOD 09/19/2024 9:13 AM EDT [facility] MCH 38.2(H) 26.0 - 32.0 pg LAB HEMATOLOGY METHOD 09/19/2024 9:13 AM EDT [facility] MCHC 33.0 30.7 - 35.5 g/dL LAB HEMATOLOGY METHOD 09/19/2024 9:13 AM EDT [facility] RDW 21.8(H) 11.5 - 14.5 % LAB HEMATOLOGY METHOD 09/19/2024 9:13 AM EDT [facility] MPV 13.5(H) 8.8 - 12.5 fL LAB HEMATOLOGY METHOD 09/19/2024 9:13 AM EDT [facility] nRBC 0.0 <=0.0 per 100 WBCs LAB HEMATOLOGY METHOD 09/19/2024 9:13 AM EDT [facility] Differential Type Automated LAB HEMATOLOGY METHOD 09/19/2024 9:13 AM EDT [facility] Neutrophils % 51 % LAB HEMATOLOGY METHOD 09/19/2024 9:13 AM EDT [facility] Lymphocytes % 41 % LAB HEMATOLOGY METHOD 09/19/2024 9:13 AM EDT [facility] Monocytes % 7 % LAB HEMATOLOGY METHOD 09/19/2024 9:13 AM EDT [facility] Eosinophils % 1 % LAB HEMATOLOGY METHOD 09/19/2024 9:13 AM EDT [facility] Basophils % 0 % LAB HEMATOLOGY METHOD 09/19/2024 9:13 AM EDT [facility] Immature Granulocytes % 0 % LAB HEMATOLOGY METHOD 09/19/2024 9:13 AM EDT [facility] Neutrophils Absolute 1.35(L) 1.60 - 6.10 10*3/uL LAB HEMATOLOGY METHOD 09/19/2024 9:13 AM EDT [facility] Lymphocytes Absolute 1.10(L) 1.20 - 3.90 10*3/uL LAB HEMATOLOGY METHOD 09/19/2024 9:13 AM EDT [facility] Monocytes Absolute 0.20(L) 0.30 - 0.90 10*3/uL LAB HEMATOLOGY METHOD 09/19/2024 9:13 AM EDT [facility] Eosinophils Absolute 0.03 0.00 - 0.50 10*3/uL LAB HEMATOLOGY METHOD 09/19/2024 9:13 AM EDT [facility] Basophils Absolute 0.01 0.00 - 0.10 10*3/uL LAB HEMATOLOGY METHOD 09/19/2024 9:13 AM EDT [facility] Immature Granulocytes Absolute 0.01 0.00 - 0.06 10*3/uL LAB HEMATOLOGY METHOD 09/19/2024 9:13 AM EDT [facility] Blood Blood sample taken from central line / Unknown (Port) Long-term Catheter / Unknown 09/19/2024 7:29 AM EDT 09/19/2024 8:08 AM EDT Narrative [facility] - 09/19/2024 9:13 AM EDT Therapeutic decision making should be based on absolute values, rather than percentages. New Mckinney MD LAB BLOOD ORDERABLES Final Re sult [facility] [address] [place] [address] * Bone marrow exam (09/19/2024 7:29 AM EDT) Case Report Bone Marrow Case: [id number] Authorizing Provider: New Mckinney MD Collected: 09/19/2024 0729 Ordering Location: [facility] Hematology/BMT and Received: 09/19/2024 1216 Cellular Therapy Program Pathologist: Lisandra Epstein MD Specimens: A) - Bone Marrow Aspirate, right B) - Bone Marrow Biopsy, right C) - Peripheral Blood for Bone Marrow 3:15 PM EDT [facility] Cytogenetics Report, Addendum Chromosome Analysis Result Giemsa-banded metaphase cells from unstimulated bone marrow cultures showed a 46,XX[20] chromosome pattern. Interpretation Normal female chromosome analysis. No clonal abnormalities were detected at current resolution. Clinical correlation is recommended. 3:15 PM EDT [facility] Addendum electronically signed by Lisandra Epstein MD on 09/24/2024 at 1630 EDT Addendum Interpretation The following two (2) genes, TP53 and DNMT3A, with persistent variants have been detected in this bone marrow specimen. The variant, p.[id number], in TP53 gene and the variant, p.[id number], in the RUNX 1 gene are not detectable at current cutoff and coverage established in this lab. Gene: TP53 Mutation: c.814G>A; p.[id number] Allele Frequency (%): 37% (45% Dec 2023) ID: [id number] Gene: DNMT3A Mutation: c.1522delC; p.[id number] Allele Frequency (%): 36% (48% Dec 2023) Additional Details on Mutation Identified: 3:15 PM EDT [facility] Addendum electronically signed by Lisandra Epstein MD on 09/30/2024 at 1515 EDT Final Diagnosis PERIPHERAL BLOOD AND BONE MARROW, RIGHT POSTERIOR ILIAC CREST, (ASPIRATE SMEAR, AND CORE BIOPSY): - HYPOCELLULAR BONE MARROW WITH MARKEDLY DECREASED MEGAKARYOCYTES; NO SIGNIFICANT DYSPOIESIS OR INCREASE IN BLASTS. 5 3:15 PM EDT [facility] at 1453 EDT Clinical Information AML 09/14 5 3:15 PM EDT [facility] CBC and Differential PERIPHERAL BLOOD: [...] blasts are not seen. 3:15 PM EDT [facility] Bone Marrow Differential BONE MARROW DIFFERENTIAL: 200 cells Normal Patient Neutrophils 15-50 34 Metamyelocytes 4-19 3 Myelocytes 1-18 10 Promyelocytes 1-8 1 Blasts 0-2 1 Monocytes 0-5 4 Erythroid 16-38 22 Lymphocytes 3-24 13 Eosinophils 0-6 8 Basophils 0-2 0 Plasma cells 0-4 4 Other 5 3:15 PM EDT [facility] Bone Marrow Aspirate and Biopsy [...] Bone trabeculae are unremarkable. 3:15 PM EDT [facility] Special and Immunohistochemical Stains Special Stain: A1-1 Vazquez-Giemsa A1-2 Vazquez-Giemsa A1-3 Vazquez-Giemsa C1-1 Vazquez-Giemsa IHC: B1-2 CD34 All controls show appropriate reactivity. All immunohistochemis try, in situ hybridization, and histochemical tests were developed by and are performed at the [facility], [address] [place] [address]. All tests reported here, except those addressing [...] negativity on decalcified specimens. 3:15 PM T [facility] Flow Cytometry Interpretation MIXED MARROW ELEMENTS WITH NO EVIDENCE OF INCREASED BLASTS OR ABNORMAL LYMPHOID POPULATIONS ([id number]). 3:15 PM EDT [facility] CYTOGENETICS/MOLECULA R INTERPRETATION Correlation with cytogenetic/molec ular analysis is suggested. 3:15 PM EDT [facility] Gross Description B. RIGHT A single specimen is received in formalin labeled bone marrow biopsy right posterior iliac crest and consists of 2 piece(s) of red/white tissue measuring 2.1/0.3 cm in length 0.2 cm in diameter. The specimen is submitted in to Histology for decalcification and routine processing. Cold Time: <1m 3:15 PM T [facility] Note: A resident was involved in the service. I attest I examined the relevant preparations for the specimens and confirmed the diagnosis or interpretation. 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
--- OUTSIDE RECORDS SUMMARY | 2024-09-30 09:00 | XMS_ITS | Encounter Summary ---
Author Organization Healthcare Address [address] [place] [address] Care Team Providers Care Planer Offbearer Name Role Phone Jevon Vazquez MD Primary Care Provider [phone] Reason for Visit * Reason Comments Labs Only Encounter Details Date Type Department Care Team ([facility] Contact Info) Description 09/30/2024 9:00 AM EDT Clinical Support [facility] Hematology/BMT and Cellular Therapy Program [address] [phone] Jyoti Kemp Acute myeloid leukemia not having [...] Hematology/BMT and Cellular Therapy Program [address] [phone] 11/28/2024 2:30 PM EDT Office Visit [facility] Hematology/BMT and Cellular Therapy Program [address] [phone] Zonia Hoffman, SWITCHBOARD OPERATOR SUPERVISOR 800 [facility] [address] [place] [phone] 11/28/2024 4:00 PM EDT Appointment [facility] [address] [place] [address] 11/29/2024 1:00 PM EDT Appointment [facility] [address] [place] [address] 11/30/2024 1:00 PM EDT Appointment [facility] [address] [place] [address] 12/01/2024 1:00 PM EDT Appointment [facility] [address] [place] [address] 12/02/2024 2:30 PM EDT Appointment [facility] [address] [place] [address] 12/03/2024 2:00 PM EDT Appointment [facility] [address] [place] [address] 12/04/2024 1:00 PM EDT Appointment [facility] [address] [place] [address] documented as of this encounter Procedures Procedure [...] - 99 mg/dL 09/30/2024 10:20 AM EDT [facility] BUN, Plasma 21 8 - 23 mg/dL 09/30/2024 10:20 AM EDT [facility] Creatinine, Plasma 1.00 0.60 - 1.10 mg/dL 09/30/2024 10:20 AM EDT [facility] BUN/Creatinine Ratio 21 09/30/2024 10:20 AM EDT [facility] Sodium, Plasma 137 136 - 145 mmol/L 09/30/2024 10:20 AM EDT [facility] Potassium, Plasma 3.8 3.6 - 4.9 mmol/L 09/30/2024 10:20 AM EDT [facility] Chloride, Plasma 107 97 - 107 mmol/L 09/30/2024 10:20 AM EDT [facility] CO2, Plasma 22 22 - 29 mmol/L 09/30/2024 10:20 AM EDT [facility] Anion Gap 8 6 - 16 mmol/L 09/30/2024 10:20 AM EDT [facility] Total Calcium, Plasma 9.8 8.9 - 10.2 mg/dL 09/30/2024 10:20 AM EDT [facility] Total Protein 5.9(L) 6.3 - 7.9 g/dL 09/30/2024 10:20 AM EDT [facility] Albumin, Plasma 3.8 3.5 - 5.2 g/dL 09/30/2024 10:20 AM EDT [facility] AST, Plasma 28 10 - 35 U/L 09/30/2024 10:20 AM EDT [facility] ALT, Plasma 14 10 - 35 U/L 09/30/2024 10:20 AM EDT [facility] Alkaline Phosphatase, Plasma 34(L) 46 - 142 U/L 09/30/2024 10:20 AM EDT [facility] Total Bilirubin, Plasma 0.3 0.2 - 1.1 mg/dL 09/30/2024 10:20 AM EDT [facility] eGFRcr 59.6 mL/min/1.7 3m*2 09/30/2024 10:20 AM EDT [facility] Comment:Reported eGFRcr in m L/min/1.73m2 is based the CKD-EPI 2020 equation that does not use a race coefficient. Blood Venous blood specimen / Unknown (Port) Long-term Catheter / Unknown 09/30/2024 9:11 AM EDT 09/30/2024 9:50 AM EDT us Zonia Hoffman SWITCHBOARD OPERATOR SUPERVISOR LAB BLOOD ORDERABLES Final Res ult [facility] [address] [place] [address] * (ABNORMAL) CBC and Differential (09/30/2024 9:11 AM EDT) WBC Count 3.34(L) 3.70 - 10.30 10*3/uL LAB HEMATOLOGY METHOD 09/30/2024 11:07 AM EDT [facility] RBC Count 1.91(L) 3.90 - 5.20 10*6/uL LAB HEMATOLOGY METHOD 09/30/2024 11:07 AM EDT [facility] HGB 7.7(L) 11.2 - 15.7 g/dL LAB HEMATOLOGY METHOD 09/30/2024 11:07 AM EDT [facility] HCT 22.8(L) 34.0 - 45.0 % LAB HEMATOLOGY METHOD 09/30/2024 11:07 AM EDT [facility] Platelet Count 17(LL) 155 - 369 10*3/uL LAB HEMATOLOGY METHOD 09/30/2024 11:07 AM EDT [facility] MCV 119(H) 79 - 98 fL LAB HEMATOLOGY METHOD 09/30/2024 11:07 AM EDT [facility] MCH 40.3(H) 26.0 - 32.0 pg LAB HEMATOLOGY METHOD 09/30/2024 11:07 AM EDT [facility] MCHC 33.8 30.7 - 35.5 g/dL LAB HEMATOLOGY METHOD 09/30/2024 11:07 AM EDT [facility] RDW 18.7(H) 11.5 - 14.5 % LAB HEMATOLOGY METHOD 09/30/2024 11:07 AM EDT [facility] MPV 11.1 8.8 - 12.5 fL LAB HEMATOLOGY METHOD 09/30/2024 11:07 AM EDT [facility] nRBC 0.0 <=0.0 per 100 WBCs LAB HEMATOLOGY METHOD 09/30/2024 11:07 AM EDT [facility] Differential Type Automated LAB HEMATOLOGY METHOD 09/30/2024 11:07 AM EDT [facility] Neutrophils % 65 % LAB HEMATOLOGY METHOD 09/30/2024 11:07 AM EDT [facility] Lymphocytes % 26 % LAB HEMATOLOGY METHOD 09/30/2024 11:07 AM EDT [facility] Monocytes % 7 % LAB HEMATOLOGY METHOD 09/30/2024 11:07 AM EDT [facility] Eosinophils % 1 % LAB HEMATOLOGY METHOD 09/30/2024 11:07 AM EDT [facility] Basophils % 1 % LAB HEMATOLOGY METHOD 09/30/2024 11:07 AM EDT [facility] Immature Granulocytes % 0 % LAB HEMATOLOGY METHOD 09/30/2024 11:07 AM EDT [facility] Neutrophils Absolute 2.17 1.60 - 6.10 10*3/uL LAB HEMATOLOGY METHOD 09/30/2024 11:07 AM EDT [facility] Lymphocytes Absolute 0.87(L) 1.20 - 3.90 10*3/uL LAB HEMATOLOGY METHOD 09/30/2024 11:07 AM EDT [facility] Monocytes Absolute 0.24(L) 0.30 - 0.90 10*3/uL LAB HEMATOLOGY METHOD 09/30/2024 11:07 AM EDT [facility] Eosinophils Absolute 0.03 0.00 - 0.50 10*3/uL LAB HEMATOLOGY METHOD 09/30/2024 11:07 AM EDT [facility] Basophils Absolute 0.02 0.00 - 0.10 10*3/uL LAB HEMATOLOGY METHOD 09/30/2024 11:07 AM EDT [facility] Immature Granulocytes Absolute 0.01 0.00 - 0.06 10*3/uL LAB HEMATOLOGY METHOD 09/30/2024 11:07 AM EDT [facility] Blood Venous blood specimen / Unknown (Port) Long-term Catheter / Unknown 09/30/2024 9:11 AM EDT 09/30/2024 9:34 AM EDT [facility] - 09/30/2024 11:07 AM EDT Therapeutic decision making should be based on absolute values, rather than percentages. us Zonia Hoffman SWITCHBOARD OPERATOR SUPERVISOR LAB BLOOD ORDERABLES Final Res ult [facility] [address] [place] [address] documented in this encounter Visit Diagnoses Diagnosis [...] as of this encounter Care Teams Planer Offbearer Relationship Specialty Start Date End Date Jevon Vazquez MD [address] [place] [address] #1 #1 [place] [id number] PCP - General 03/23/22 documented as of this encounter
--- OUTSIDE RECORDS SUMMARY | 2024-09-30 09:30 | XMS_ITS | Encounter Summary ---
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 female. Referring Physician: Zonia Hoffman, AUTOMOTIVE WINDOW TINTER 800 [facility] [address] [address] Primary Care Provider: Jevon Vazquez MD Chief [...] k/??L. 12/2023- seen by Dr. 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 Next generation sequencing: Abnormal: TP53 (c.814G>A; p.Bfd426Twc) frequency 45%, DMNT3A (c.1522delC; p.[id number]) frequency 48%, RUNX1 (c.336_338delGCC; p.Tcc940nmk) frequency 35% Azacitidine + Venetoclax Cycle 1: [...] - Continue local lab checks MWF at [facility] Allogenic transplant planning. 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 However, given her older age > 70, she would benefit from a geriatric BMT program and will make referrals should she be interested. Expected pancytopenia related to chemotherapy/AML. Check CBC x 3 times/week at [facility] Labs reviewed today, Hgb 7.7 [...] charts, reviewing results, and documenting. RODDY Cristina [facility] HEMATOLOGY/BMT AND CELLULAR THERAPY PROGRAM 800 [facility] [address] 40 minutes was spent on this encounter; [...] Upcoming Encounters Date Type Department Care Team ([facility] st Contact Info) Description 11/28/2024 2:00 PM EDT Clinical Support [facility] Hematology/BMT and Cellular Therapy Program 750 [facility], [address] [place] [address] [place] [address] 11/28/2024 2:30 PM EDT Office Visit [facility] Hematology/BMT and Cellular Therapy Program [address] [place] [address] Zonia Hoffman, AUTOMOTIVE WINDOW TINTER 800 [facility] [address] [place] [phone] 11/28/2024 4:00 PM EDT Appointment [facility] 1 [address] [place] [address] 11/29/2024 1:00 PM EDT Appointment [facility] 1 [address] [place] [address] 11/30/2024 1:00 PM EDT Appointment [facility] 1 [address] [place] [address] 12/01/2024 1:00 PM EDT Appointment [facility] 2 [address] [place] [address] 12/02/2024 2:30 PM EDT Appointment [facility] 2 [address] [place] [address] 12/03/2024 2:00 PM EDT Appointment [facility] 1 [address] [place] [address] 12/04/2024 1:00 PM EDT Appointment [facility] [address] [place] [address] documented as of this encounter Results * (ABNORMAL) Comprehensive Metabolic Panel, Plasma (09/30/2024 9:11 AM EDT) [facility] Glucose, Plasma 135(H) 74 - 99 mg/dL 09/30/2024 10:20 AM EDT [facility] BUN, Plasma 21 8 - 23 mg/dL 09/30/2024 10:20 AM EDT [facility] Creatinine, Plasma 1.00 0.60 - 1.10 mg/dL 09/30/2024 10:20 AM EDT [facility] BUN/Creatinine Ratio 21 09/30/2024 10:20 AM EDT [facility] Sodium, Plasma 137 136 - 145 mmol/L 09/30/2024 10:20 AM EDT [facility] Potassium, Plasma 3.8 3.6 - 4.9 mmol/L 09/30/2024 10:20 AM EDT [facility] Chloride, Plasma 107 97 - 107 mmol/L 09/30/2024 10:20 AM EDT [facility] CO2, Plasma 22 22 - 29 mmol/L 09/30/2024 10:20 AM EDT [facility] Anion Gap 8 6 - 16 mmol/L 09/30/2024 10:20 AM EDT [facility] Total Calcium, Plasma 9.8 8.9 - 10.2 mg/dL 09/30/2024 10:20 AM EDT [facility] Total Protein 5.9(L) 6.3 - 7.9 g/dL 09/30/2024 10:20 AM EDT [facility] Albumin, Plasma 3.8 3.5 - 5.2 g/dL 09/30/2024 10:20 AM EDT [facility] AST, Plasma 28 10 - 35 U/L 09/30/2024 10:20 AM EDT [facility] ALT, Plasma 14 10 - 35 U/L 09/30/2024 10:20 AM EDT [facility] Alkaline Phosphatase, Plasma 34(L) 46 - 142 U/L 09/30/2024 10:20 AM EDT [facility] Total Bilirubin, Plasma 0.3 0.2 - 1.1 mg/dL 09/30/2024 10:20 AM EDT [facility] eGFRcr 59.6 mL/min/1.7 3m*2 09/30/2024 10:20 AM EDT [facility] Comment:Reported eGFRcr in m L/min/1.73m2 is based the CKD-EPI 2020 equation that does not use a race coefficient. Blood Venous blood specimen / Unknown (Port) Long-term Catheter / Unknown 09/30/2024 9:11 AM EDT 09/30/2024 9:50 AM EDT us Zonia Hoffman APRN LAB BLOOD ORDERABLES Final Res ult [facility] 800 [place] [address] * (ABNORMAL) CBC and Differential (09/30/2024 9:11 AM EDT) WBC Count 3.34(L) 3.70 - 10.30 10*3/uL LAB HEMATOLOGY METHOD 09/30/2024 11:07 AM EDT [facility] RBC Count 1.91(L) 3.90 - 5.20 10*6/uL LAB HEMATOLOGY METHOD 09/30/2024 11:07 AM EDT [facility] HGB 7.7(L) 11.2 - 15.7 g/dL LAB HEMATOLOGY METHOD 09/30/2024 11:07 AM EDT [facility] HCT 22.8(L) 34.0 - 45.0 % LAB HEMATOLOGY METHOD 09/30/2024 11:07 AM EDT [facility] Platelet Count 17(LL) 155 - 369 10*3/uL LAB HEMATOLOGY METHOD 09/30/2024 11:07 AM EDT [facility] MCV 119(H) 79 - 98 fL LAB HEMATOLOGY METHOD 09/30/2024 11:07 AM EDT [facility] MCH 40.3(H) 26.0 - 32.0 pg LAB HEMATOLOGY METHOD 09/30/2024 11:07 AM EDT [facility] MCHC 33.8 30.7 - 35.5 g/dL LAB HEMATOLOGY METHOD 09/30/2024 11:07 AM EDT [facility] RDW 18.7(H) 11.5 - 14.5 % LAB HEMATOLOGY METHOD 09/30/2024 11:07 AM EDT [facility] MPV 11.1 8.8 - 12.5 fL LAB HEMATOLOGY METHOD 09/30/2024 11:07 AM EDT [facility] nRBC 0.0 <=0.0 per 100 WBCs LAB HEMATOLOGY METHOD 09/30/2024 11:07 AM EDT [facility] Differential Type Automated LAB HEMATOLOGY METHOD 09/30/2024 11:07 AM EDT [facility] Neutrophils % 65 % LAB HEMATOLOGY METHOD 09/30/2024 11:07 AM EDT [facility] Lymphocytes % 26 % LAB HEMATOLOGY METHOD 09/30/2024 11:07 AM EDT [facility] Monocytes % 7 % LAB HEMATOLOGY METHOD 09/30/2024 11:07 AM EDT [facility] Eosinophils % 1 % LAB HEMATOLOGY METHOD 09/30/2024 11:07 AM EDT [facility] Basophils % 1 % LAB HEMATOLOGY METHOD 09/30/2024 11:07 AM EDT [facility] Immature Granulocytes % 0 % LAB HEMATOLOGY METHOD 09/30/2024 11:07 AM EDT [facility] Neutrophils Absolute 2.17 1.60 - 6.10 10*3/uL LAB HEMATOLOGY METHOD 09/30/2024 11:07 AM EDT [facility] Lymphocytes Absolute 0.87(L) 1.20 - 3.90 10*3/uL LAB HEMATOLOGY METHOD 09/30/2024 11:07 AM EDT [facility] Monocytes Absolute 0.24(L) 0.30 - 0.90 10*3/uL LAB HEMATOLOGY METHOD 09/30/2024 11:07 AM EDT [facility] Eosinophils Absolute 0.03 0.00 - 0.50 10*3/uL LAB HEMATOLOGY METHOD 09/30/2024 11:07 AM EDT [facility] Basophils Absolute 0.02 0.00 - 0.10 10*3/uL LAB HEMATOLOGY METHOD 09/30/2024 11:07 AM EDT [facility] Immature Granulocytes Absolute 0.01 0.00 - 0.06 10*3/uL LAB HEMATOLOGY METHOD 09/30/2024 11:07 AM EDT [facility] Blood Venous blood specimen / Unknown (Port) Long-term Catheter / Unknown 09/30/2024 9:11 AM EDT 09/30/2024 9:34 AM EDT Narrative [facility] - 09/30/2024 11:07 AM EDT Therapeutic decision making should be based on absolute values, rather than percentages. us Zonia Hoffman APRN LAB BLOOD ORDERABLES Final Res ult [facility] [address] [place] [address] documented in this encounter Visit Diagnoses Diagnosis [...] as of this encounter Care Teams Director Foundation Relationship Specialty Start Date End Date Jevon Vazquez MD [address] [place] [address] #1 #1 [place] [id number] PCP - General 03/23/22 documented as of this encounter
[2024-11-14 09:00] VITALS: BMI 21.8
--- OUTSIDE RECORDS SUMMARY | 2024-11-14 09:02 | XMS_ITS | Encounter Summary ---
Author Organization [facility] Address [address] [place] [address] Care Team Providers Care Air Director Name Role Phone Jevon Vazquez MD Primary Care Provider [phone] Encounter Details Date Type Department Care Team ([facility] Contact Info) Description 09/19/2024 Telephone [facility] Hematology/BMT and Cellular Therapy Program [address] [place] [address] Romana [place] RN [facility] Social History Tobacco [...] Upcoming Encounters Date Type Department Care Team ([facility] Contact Info) Description 11/28/2024 2:00 PM EDT Clinical Support [facility] Hematology/BMT and Cellular Therapy Program [address] [place] [address] 11/28/2024 2:30 PM EDT Office Visit [facility] Hematology/BMT and Cellular Therapy Program 750 [facility] [address] [place] [address] Zonia Hoffman, SPRING UP SUPERVISOR [address] [facility] [address] [place] [address] 11/28/2024 4:00 PM EDT Appointment [facility] 1 744 [place] [address] 11/29/2024 1:00 PM EDT Appointment [facility] 1 744 [place] [address] 11/30/2024 1:00 PM EDT Appointment [facility] 1 [address] [place] [address] 12/01/2024 1:00 PM EDT Appointment [facility] 2 [address] [place] [address] 12/02/2024 2:30 PM EDT Appointment [facility] 2 7[address] [place] [address] 12/03/2024 2:00 PM EDT Appointment [facility] 1 [address] [place] [address] 12/04/2024 1:00 PM EDT Appointment [facility] 800 [place] [address] documented as of this encounter Visit Diagnoses Not on filedocumented in this encounter Additional Health Concerns Assessment Noted Time A fall risk assessment has been complete d for the patient 09/19/2024 8:38 AM EDT A Body Mass Index follow-up plan has been documented for the patient 05/28/2024 1:52 PM EST documented as of this encounter Care Teams Air Director Relationship Specialty Start Date End Date Jevon Vazquez MD [address] [place] [address] #1 #1 [place] [address] PCP - General 03/23/22 documented as of this encounter
--- OUTSIDE RECORDS SUMMARY | 2024-11-14 09:02 | XMS_ITS | Encounter Summary ---
Author Organization Healthcare Address [address] [place] [address] Care Team Providers Care Dam Tender Name Role Phone Jevon Vazquez MD Primary Care Provider [phone] Encounter Details Date Type Department Care Team ([facility] Contact Info) Description 09/19/2024 Orders Only [facility] Hematology/BMT and Cellular Therapy Program [address] [phone] 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, RN [facility] HEMATOLOG[facility]IC Social History [...] [facility] Description 11/28/2024 2:00 PM EDT Clinical Support [facility] Hematology/BMT and Cellular Therapy Program [address] [phone] 11/28/2024 2:30 PM EDT Office Visit [facility] Hematology/BMT and Cellular Therapy Program [address] [phone] Zonia Hoffman, ALL SOURCE INTELLIGENCE TECHNICIAN 800 [facility] [address] [place] [address] 11/28/2024 4:00 PM EDT Appointment [facility] 1 [address] [place] [address] 11/29/2024 1:00 PM EDT Appointment [facility] 1 744 [place] [address] 11/30/2024 1:00 PM EDT Appointment [facility] 1 [address]44 [place] [address] 12/01/2024 1:00 PM EDT Appointment [facility] 2 7[address] [place] [address] 12/02/2024 2:30 PM EDT Appointment [facility] 2 [address] [place] [address] 12/03/2024 2:00 PM EDT Appointment [facility] 1 [address] [place] [address] 12/04/2024 1:00 PM EDT Appointment [facility] 800 [place] [address] documented as of this encounter Visit Diagnoses Not on filedocumented in this encounter Additional Health Concerns Assessment Noted Time A fall risk assessment has been complete d for the patient 09/19/2024 8:38 AM EDT A Body Mass Index follow-up plan has been documented for the patient 05/28/2024 1:52 PM EST documented as of this encounter Care Teams Dam Tender Relationship Specialty Start Date End Date Jevon Vazquez MD [address] [place] [address] #1 #1 [place] [address] PCP - General 03/23/22 documented as of this encounter
--- OUTSIDE RECORDS SUMMARY | 2024-11-14 09:02 | XMS_ITS | Encounter Summary ---
Author Organization [facility] Address [address] [place] [address] Care Team Providers Care Installation And Repair Technician Name Role Phone Jevon Vazquez MD Primary Care Provider [phone] Encounter Details Date Type Department Care Team ([facility] Contact Info) Description 10/29/2024 Refill [facility] Hematology/BMT and Cellular Therapy Program [address] [address] Zonia Hoffman, BELL SPINNER 800 [facility] [address] [place] [address] Acute myeloid leukemia not having achieved remission [...] Encounters Date Type Department Care Team ([facility] Contact Info) Description 11/28/2024 2:00 PM EDT Clinical Support [facility] Hematology/BMT and Cellular Therapy Program [address] [address] 11/28/2024 2:30 PM EDT Office Visit [facility] Hematology/BMT and Cellular Therapy Program [address] [place] [address] Zonia Hoffman, BELL SPINNER 800 [address] [address] [place] [address] 11/28/2024 4:00 PM EDT Appointment [facility] 1 [address] [place] [address] 11/29/2024 1:00 PM EDT Appointment [facility] 1 [address] [place] [address] 11/30/2024 1:00 PM EDT Appointment [facility] 1 [address] [place] [address] 12/01/2024 1:00 PM EDT Appointment [facility] 2 [address] [place] [address] 12/02/2024 2:30 PM EDT Appointment [facility] 2 [address] [place] [address] 12/03/2024 2:00 PM EDT Appointment [facility] 1 [address] [place] [address] 12/04/2024 1:00 PM EDT Appointment [facility] 800 [place] [address] documented as of this encounter Visit Diagnoses [...] as of this encounter Care Teams Installation And Repair Technician Relationship Specialty Start Date End Date Jevon Vazquez MD [address] [place] [address] #1 #1 [place] [address] PCP - General 03/23/22 documented as of this encounter
--- OUTSIDE RECORDS SUMMARY | 2024-11-14 09:02 | XMS_ITS | Encounter Summary ---
Author Organization Healthcare Address [address] [place] [address] Care Team Providers Care Ore Crusher Name Role Phone Jevon Vazquez MD Primary Care Provider [phone] Encounter Details Date Type Department Care Team (Late Contact Info) Description 09/30/2024 Telephone [facility] Hematology/BMT and Cellular Therapy Program [address] [place] [address] Zoraida Good, RN [facility] HEMATOLOG[facility] PROGRAM CLINIC Social History Tobacco Use [...] Department Care Team (Late Contact Info) Description 11/28/2024 2:00 PM EDT Clinical Support [facility] Hematology/BMT and Cellular Therapy Program 750 [facility] [address] [place] [address] [place] [address] 11/28/2024 2:30 PM EDT Office Visit [facility] Hematology/BMT and Cellular Therapy Program 750 [facility] [address] Zonia Hoffman, INTERMEDIATE MANAGER 800 [facility] [address] [place] [address] 11/28/2024 4:00 PM EDT Appointment [facility] 1 [address] [place] [address] 11/29/2024 1:00 PM EDT Appointment [facility] 1 [address] [place] [address] 11/30/2024 1:00 PM EDT Appointment [facility] 1 [address] [place] [address] 12/01/2024 1:00 PM EDT Appointment [facility] 2 [address] [place] [address] 12/02/2024 2:30 PM EDT Appointment [facility] 2 [address] [place] [address] 12/03/2024 2:00 PM EDT Appointment [facility] 1 [address] [place] [address] 12/04/2024 1:00 PM EDT Appointment [facility] Infusion [address] [place] [address] documented as of this encounter Visit Diagnoses Not on filedocumented in this encounter Additional Health Concerns Assessment Noted Time A fall risk assessment has been complete d for the patient 09/30/2024 9:33 AM EDT A Body Mass Index follow-up plan has been documented for the patient 05/28/2024 1:52 PM EST documented as of this encounter Care Teams Ore Crusher Relationship Specialty Start Date End Date Jevon Vazquez MD [address] [place] [address] #1 #1 [place] [address] PCP - General 03/23/22 documented as of this encounter
--- OUTSIDE RECORDS SUMMARY | 2024-11-14 09:02 | XMS_ITS | Encounter Summary ---
Author Organization Healthcare Address [address] [place] [address] Care Team Providers Care Horse Rider Name Role Phone Jevon Vazquez MD Primary Care Provider [phone] Encounter Details Date Type Department Care Team [...] Hematology/BMT and Cellular Therapy Program [address] [address] 11/28/2024 2:30 PM EDT Office Visit [facility] Hematology/BMT and Cellular Therapy Program [address] [address] Zonia Hoffman, ELECTRIC STOVE INSTALLER 800 [facility] [address] [place] [address] 11/28/2024 4:00 PM EDT Appointment [facility] 1 [address] [place] [address] 11/29/2024 1:00 PM EDT Appointment [facility] 1 [address] [place] [address] 11/30/2024 1:00 PM EDT Appointment [facility] 1 [address] [place] [address] 12/01/2024 1:00 PM EDT Appointment [facility] 2 [address] [place] [address] 12/02/2024 2:30 PM EDT Appointment [facility] 2 [address] [place] [address] 12/03/2024 2:00 PM EDT Appointment [facility] 1 [address] [place] [address] 12/04/2024 1:00 PM EDT Appointment [facility] Infusion 800 [place] [address] documented as of this encounter Visit Diagnoses Not on filedocumented in this encounter Additional Health Concerns Assessment Noted Time A fall risk assessment has been complete d for the patient 09/19/2024 8:38 AM EDT A Body Mass Index follow-up plan has been documented for the patient 05/28/2024 1:52 PM EST documented as of this encounter Care Teams Horse Rider Relationship Specialty Start Date End Date Jevon Vazquez MD [address] [place] [address] #1 #1 [place] [address] PCP - General 03/23/22 documented as of this encounter
--- OUTSIDE RECORDS SUMMARY | 2024-11-14 09:02 | XMS_ITS | Encounter Summary ---
Author Organization [facility] Address [address] [place] [address] Care Team Providers Care Employment Program Representative Name Role Phone Jevon Vazquez MD Primary Care Provider [phone] Encounter Details Date Type Department Care Team ([facility] Contact Info) Description 09/15/2024 Telephone P[facility] CC Hematology/BMT and Cellular Therapy Program [address] [phone] Zonia Hoffman, FOOD AND BEVERAGE ORDER CLERK 800 [facility] [address] [place] [phone] Social History Tobacco Use Types Packs/Day Years [...] Encounters Date Type Department Care Team ([facility] Contact Info) Description 11/28/2024 2:00 PM EDT Clinical Support [facility] Hematology/BMT and Cellular Therapy Program [address] [place] [phone] 11/28/2024 2:30 PM EDT Office Visit [facility] Hematology/BMT and Cellular Therapy Program [address] [phone] Zonia Hoffman, FOOD AND BEVERAGE ORDER CLERK 800 [facility] [address] [place] [address] 11/28/2024 4:00 PM EDT Appointment [facility] 1 [address] [place] [address] 11/29/2024 1:00 PM EDT Appointment [facility] 1 [address] [place] [address] 11/30/2024 1:00 PM EDT Appointment [facility] 1 [address] [place] [address] 12/01/2024 1:00 PM EDT Appointment [facility] 2 [address] [place] [address] 12/02/2024 2:30 PM EDT Appointment [facility] 2 [address] [place] [address] 12/03/2024 2:00 PM EDT Appointment [facility] 1 [address] [place] [address] 12/04/2024 1:00 PM EDT Appointment [facility] Infusion [address] [place] [address] documented as of this encounter Visit Diagnoses Not on filedocumented in this encounter Additional Health Concerns Assessment Noted Time A fall risk assessment has been complete d for the patient 07/30/2024 8:29 AM EDT A Body Mass Index follow-up plan has been documented for the patient 05/28/2024 1:52 PM EST documented as of this encounter Care Teams Employment Program Representative Relationship Specialty Start Date End Date Jevon Vazquez MD [address] [place] [address] #1 #1 [place] [address] PCP - General 03/23/22 documented as of this encounter
--- OUTSIDE RECORDS SUMMARY | 2024-11-14 09:02 | XMS_ITS | Encounter Summary ---
Author Organization [facility] Address [address] [place] [address] Care Team Providers Care Oracle R12 Developer Name Role Phone Jevon Vazquez MD Primary Care Provider Reason for Visit * Reason Comments Med Refill Encounter Details Date Type Department Care Team ([facility] Contact Info) Description 01/30/2024 Refill [facility] CC Hematology/BMT and Cellular Therapy Program [address] [phone] New Mckinney MD 800 [facility] [address] [place] [phone] Social History Tobacco Use Types Packs/Day Years [...] Department Care Team ([facility] Contact Info) Description 11/28/2024 2:00 PM EDT Clinical Support [facility] Hematology/BMT and Cellular Therapy Program [address] [place] [address] 11/28/2024 2:30 PM EDT Office Visit [facility] Hematology/BMT and Cellular Therapy Program [address] [phone] Zonia Hoffman, IMMIGRATION MANAGER [address] [facility] [address] [place] [address] 11/28/2024 4:00 PM EDT Appointment [facility] 1 [address] [place] [address] 11/29/2024 1:00 PM EDT Appointment [facility] 1 [address] [place] [address] 11/30/2024 1:00 PM EDT Appointment [facility] 1 [address] [place] [address] 12/01/2024 1:00 PM EDT Appointment [facility] 2 [address] [place] [address] 12/02/2024 2:30 PM EDT Appointment [facility] 2 [address] [place] [address] 12/03/2024 2:00 PM EDT Appointment [facility] 1 [address] [place] [address] 12/04/2024 1:00 PM EDT Appointment [facility] Infusion 800 [place] [address] documented as of this encounter Visit Diagnoses Not on filedocumented in this encounter Additional Health Concerns Assessment Noted Time A fall risk assessment has been complete d for the patient 01/11/2024 9:16 AM EDT A Body Mass Index follow-up plan has been documented for the patient 01/21/2024 6:16 AM EDT documented as of this encounter Care Teams Oracle R12 Developer Relationship Specialty Start Date End Date Jevon Vazquez MD [address] [place] [address] #1 #1 [place] [address] PCP - General 03/23/22 documented as of this encounter
--- OUTSIDE RECORDS SUMMARY | 2024-11-14 09:02 | XMS_ITS | Encounter Summary ---
Author Organization Healthcare Address [address] [place] [address] Care Team Providers Care Fuels Sales Representative Name Role Phone Jevon Vazquez MD Primary Care Provider [phone] Encounter Details Date Type Department Care Team [...] Hematology/BMT and Cellular Therapy Program [address] [phone] 11/28/2024 2:30 PM EDT Office Visit [facility] Hematology/BMT and Cellular Therapy Program [address] [phone] Zonia Hoffman, MEDICAL DIR 800 [facility] [address] [place] [address] 11/28/2024 4:00 PM EDT Appointment [facility] 1 [address] [place] [address] 11/29/2024 1:00 PM EDT Appointment [facility] 1 [address] [place] [address] 11/30/2024 1:00 PM EDT Appointment [facility] 1 [address] [place] [address] 12/01/2024 1:00 PM EDT Appointment [facility] 2 [address] [place] [address] 12/02/2024 2:30 PM EDT Appointment [facility] 2 [address] [place] [address] 12/03/2024 2:00 PM EDT Appointment [facility] 1 [address] [place] [address] 12/04/2024 1:00 PM EDT Appointment [facility] Infusion 800 [place] [address] documented as of this encounter Visit Diagnoses Not on filedocumented in this encounter Additional Health Concerns Assessment Noted Time A fall risk assessment has been complete d for the patient 07/30/2024 8:29 AM EDT A Body Mass Index follow-up plan has been documented for the patient 05/28/2024 1:52 PM EST documented as of this encounter Care Teams Fuels Sales Representative Relationship Specialty Start Date End Date Jevon Vazquez MD [address] [place] [address] #1 #1 [place] [address] PCP - General 03/23/22 documented as of this encounter
--- OUTSIDE RECORDS SUMMARY | 2024-11-14 09:02 | XMS_ITS | Encounter Summary ---
Author Organization Healthcare Address [address] [place] [address] Care Team Providers Care Reel Operator Name Role Phone Jevon Vazquez MD Primary Care Provider [phone] Encounter Details Date Type Department Care Team [...] Hematology/BMT and Cellular Therapy Program [address] [address] 11/28/2024 2:30 PM EDT Office Visit [facility] Hematology/BMT and Cellular Therapy Program [address] [phone] Zonia Hoffman, INTRAOPERATIVE NEURO TECH 800 [facility] [address] [place] [address] 11/28/2024 4:00 PM EDT Appointment [facility] 1 [address] [place] [address] 11/29/2024 1:00 PM EDT Appointment [facility] 1 [address] [place] [address] 11/30/2024 1:00 PM EDT Appointment [facility] 1 [address] [place] [address] 12/01/2024 1:00 PM EDT Appointment [facility] 2 [address] [place] [address] 12/02/2024 2:30 PM EDT Appointment [facility] 2 [address] [place] [address] 12/03/2024 2:00 PM EDT Appointment [facility] 1 [address] [place] [address] 12/04/2024 1:00 PM EDT Appointment [facility] Infusion 800 [place] [address] documented as of this encounter Visit Diagnoses Not on filedocumented in this encounter Additional Health Concerns Assessment Noted Time A fall risk assessment has been complete d for the patient 09/30/2024 9:33 AM EDT A Body Mass Index follow-up plan has been documented for the patient 05/28/2024 1:52 PM EST documented as of this encounter Care Teams Reel Operator Relationship Specialty Start Date End Date Jevon Vazquez MD [address] [place] [address] #1 #1 [place] [address] PCP - General 03/23/22 documented as of this encounter
--- OUTSIDE RECORDS SUMMARY | 2024-11-14 09:02 | XMS_ITS | Encounter Summary ---
Author Organization Healthcare Address [address] [place] [address] Care Team Providers Care Pain Management Nurse Name Role Phone Jevon Vazquez MD Primary Care Provider [phone] Encounter Details Date Type Department Care Team [...] Hematology/BMT and Cellular Therapy Program [address] [address] 11/28/2024 2:30 PM EDT Office Visit [facility] Hematology/BMT and Cellular Therapy Program [address] [phone] Zonia Hoffman, MEDICAL BILLING CODER 800 [facility] [address] [place] [address] 11/28/2024 4:00 PM EDT Appointment [facility] 1 [address] [place] [address] 11/29/2024 1:00 PM EDT Appointment [facility] 1 [address] [place] [address] 11/30/2024 1:00 PM EDT Appointment [facility] 1 [address] [place] [address] 12/01/2024 1:00 PM EDT Appointment [facility] 2 [address] [place] [address] 12/02/2024 2:30 PM EDT Appointment [facility] 2 [address] [place] [address] 12/03/2024 2:00 PM EDT Appointment [facility] 1 [address] [place] [address] 12/04/2024 1:00 PM EDT Appointment [facility] Infusion 800 [place] [address] documented as of this encounter Visit Diagnoses Not on filedocumented in this encounter Additional Health Concerns Assessment Noted Time A fall risk assessment has been complete d for the patient 09/19/2024 8:38 AM EDT A Body Mass Index follow-up plan has been documented for the patient 05/28/2024 1:52 PM EST documented as of this encounter Care Teams Pain Management Nurse Relationship Specialty Start Date End Date Jevon Vazquez MD [address] [place] [address] #1 #1 [place] [address] PCP - General 03/23/22 documented as of this encounter
--- OUTSIDE RECORDS SUMMARY | 2024-11-14 09:02 | XMS_ITS | Encounter Summary ---
Author Organization Healthcare Address [address] [place] [address] Care Team Providers Care Hand Brush Filler Name Role Phone Jevon Vazquez MD Primary Care Provider [phone] Encounter Details Date Type Department Care Team [...] Hematology/BMT and Cellular Therapy Program [address] [address] 11/28/2024 2:30 PM EDT Office Visit [facility] Hematology/BMT and Cellular Therapy Program [address] [address] Zonia Hoffman, ASBESTOS WIRE FINISHER 800 [facility] [address] [place] [address] 11/28/2024 4:00 PM EDT Appointment [facility] 1 [address] [place] [address] 11/29/2024 1:00 PM EDT Appointment [facility] 1 [address] [place] [address] 11/30/2024 1:00 PM EDT Appointment [facility] 1 [address] [place] [address] 12/01/2024 1:00 PM EDT Appointment [facility] 2 [address] [place] [address] 12/02/2024 2:30 PM EDT Appointment [facility] 2 [address] [place] [address] 12/03/2024 2:00 PM EDT Appointment [facility] 1 [address] [place] [address] 12/04/2024 1:00 PM EDT Appointment [facility] Infusion [address] [place] [address] documented as of this encounter Visit Diagnoses Not on filedocumented in this encounter Additional Health Concerns Assessment Noted Time A fall risk assessment has been complete d for the patient 09/19/2024 8:38 AM EDT A Body Mass Index follow-up plan has been documented for the patient 05/28/2024 1:52 PM EST documented as of this encounter Care Teams Hand Brush Filler Relationship Specialty Start Date End Date Jevon Vazquez MD [address] [place] [address] #1 #1 [place] [address] PCP - General 03/23/22 documented as of this encounter
--- OUTSIDE RECORDS SUMMARY | 2024-11-14 09:02 | XMS_ITS ---
Author Organization [facility] Address [address] [place] [address] Care Team Providers Care Living Advisor Name Role Phone Jevon Vazquez MD Primary Care Provider [phone] Active Problems Problem Noted Date Diagnosed Date [...]
--- OUTSIDE RECORDS SUMMARY | 2024-11-14 09:02 | XMS_ITS | Encounter Summary ---
Author Organization Healthcare Address [address] [place] [address] Care Team Providers Care Chemical Radiation Technician Name Role Phone Jevon Vazquez MD Primary Care Provider [phone] Encounter Details Date Type Department Care Team [...] Hematology/BMT and Cellular Therapy Program [address] [address] 11/28/2024 2:30 PM EDT Office Visit [facility] Hematology/BMT and Cellular Therapy Program [address] [address] Zonia Hoffman, ADOBE BALL MIXER 800 [facility] [address] [place] [address] 11/28/2024 4:00 PM EDT Appointment [facility] 1 [address] [place] [address] 11/29/2024 1:00 PM EDT Appointment [facility] 1 [address] [place] [address] 11/30/2024 1:00 PM EDT Appointment [facility] 1 [address] [place] [address] 12/01/2024 1:00 PM EDT Appointment [facility] 2 [address] [place] [address] 12/02/2024 2:30 PM EDT Appointment [facility] 2 [address] [place] [address] 12/03/2024 2:00 PM EDT Appointment [facility] 1 [address] [place] [address] 12/04/2024 1:00 PM EDT Appointment [facility] Infusion 800 [place] [address] documented as of this encounter Visit Diagnoses Not on filedocumented in this encounter Additional Health Concerns Assessment Noted Time A fall risk assessment has been complete d for the patient 09/30/2024 9:33 AM EDT A Body Mass Index follow-up plan has been documented for the patient 05/28/2024 1:52 PM EST documented as of this encounter Care Teams Chemical Radiation Technician Relationship Specialty Start Date End Date Jevon Vazquez MD [address] [place] [address] #1 #1 [place] [address] PCP - General 03/23/22 documented as of this encounter
--- OUTSIDE RECORDS SUMMARY | 2024-11-14 09:02 | XMS_ITS | Encounter Summary ---
Author Organization Healthcare Address [address] [place] [address] Care Team Providers Care Milling Planer Operator Name Role Phone Jevon Vazquez MD Primary Care Provider [phone] Encounter Details Date Type Department Care Team [...] Hematology/BMT and Cellular Therapy Program [address] [address] 11/28/2024 2:30 PM EDT Office Visit [facility] CC Hematology/BMT and Cellular Therapy Program [address] [address] Zonia Hoffman, MANAGER PAYER 800 [facility] [address] [place] [address] 11/28/2024 4:00 PM EDT Appointment [facility] 1 [address] [place] [address] 11/29/2024 1:00 PM EDT Appointment [facility] 1 [address] [place] [address] 11/30/2024 1:00 PM EDT Appointment [facility] 1 [address] [place] [address] 12/01/2024 1:00 PM EDT Appointment [facility] 2 [address] [place] [address] 12/02/2024 2:30 PM EDT Appointment [facility] 2 [address] [place] [address] 12/03/2024 2:00 PM EDT Appointment [facility] 1 [address] [place] [address] 12/04/2024 1:00 PM EDT Appointment [facility] Infusion 800 [place] [address] documented as of this encounter Visit Diagnoses Not on filedocumented in this encounter Additional Health Concerns Assessment Noted Time A fall risk assessment has been complete d for the patient 09/30/2024 9:33 AM EDT A Body Mass Index follow-up plan has been documented for the patient 05/28/2024 1:52 PM EST documented as of this encounter Care Teams Milling Planer Operator Relationship Specialty Start Date End Date Jevon Vazquez MD [address] [place] [address] #1 #1 [place] [address] PCP - General 03/23/22 documented as of this encounter
--- OUTSIDE RECORDS SUMMARY | 2024-11-14 09:02 | XMS_ITS | Encounter Summary ---
Author Organization Healthcare Address [address] [place] [address] Care Team Providers Care Roller Skate Assembler Name Role Phone Jevon Vazquez MD Primary Care Provider [phone] Encounter Details Date Type Department Care Team [...] Hematology/BMT and Cellular Therapy Program [address] [address] 11/28/2024 2:30 PM EDT Office Visit [facility] CC Hematology/BMT and Cellular Therapy Program [address] [address] Zonia Hoffman, DO ALL OPERATOR 800 [facility] [address] [place] [address] 11/28/2024 4:00 PM EDT Appointment [facility] 1 [address] [place] [address] 11/29/2024 1:00 PM EDT Appointment [facility] 1 [address] [place] [address] 11/30/2024 1:00 PM EDT Appointment [facility] 1 [address] [place] [address] 12/01/2024 1:00 PM EDT Appointment [facility] 2 [address] [place] [address] 12/02/2024 2:30 PM EDT Appointment [facility] 2 [address] [place] [address] 12/03/2024 2:00 PM EDT Appointment [facility] 1 [address] [place] [address] 12/04/2024 1:00 PM EDT Appointment [facility] Infusion 800 [place] [address] documented as of this encounter Visit Diagnoses Not on filedocumented in this encounter Additional Health Concerns Assessment Noted Time A fall risk assessment has been complete d for the patient 09/30/2024 9:33 AM EDT A Body Mass Index follow-up plan has been documented for the patient 05/28/2024 1:52 PM EST documented as of this encounter Care Teams Roller Skate Assembler Relationship Specialty Start Date End Date Jevon Vazquez MD [address] [place] [address] #1 #1 [place] [address] PCP - General 03/23/22 documented as of this encounter
--- OUTSIDE RECORDS SUMMARY | 2024-11-14 09:02 | XMS_ITS | Encounter Summary ---
Author Organization Healthcare Address [address] [place] [address] Care Team Providers Care Furnace Process Supervisor Name Role Phone Jevon Vazquez MD Primary Care Provider [phone] Encounter Details Date Type Department Care Team [...] Hematology/BMT and Cellular Therapy Program [address] [address] 11/28/2024 2:30 PM EDT Office Visit [facility] CC Hematology/BMT and Cellular Therapy Program [address] [address] Zonia Hoffman, TRAINER 800 [facility] [address] [place] [address] 11/28/2024 4:00 PM EDT Appointment [facility] 1 [address] [place] [address] 11/29/2024 1:00 PM EDT Appointment [facility] 1 [address] [place] [address] 11/30/2024 1:00 PM EDT Appointment [facility] 1 [address] [place] [address] 12/01/2024 1:00 PM EDT Appointment [facility] 2 [address] [place] [address] 12/02/2024 2:30 PM EDT Appointment [facility] 2 [address] [place] [address] 12/03/2024 2:00 PM EDT Appointment [facility] 1 [address] [place] [address] 12/04/2024 1:00 PM EDT Appointment [facility] Infusion 800 [place] [address] documented as of this encounter Visit Diagnoses Not on filedocumented in this encounter Additional Health Concerns Assessment Noted Time A fall risk assessment has been complete d for the patient 09/19/2024 8:38 AM EDT A Body Mass Index follow-up plan has been documented for the patient 05/28/2024 1:52 PM EST documented as of this encounter Care Teams Furnace Process Supervisor Relationship Specialty Start Date End Date Jevon Vazquez MD [address] [place] [address] #1 #1 [place] [address] PCP - General 03/23/22 documented as of this encounter
--- OUTSIDE RECORDS SUMMARY | 2024-11-14 09:02 | XMS_ITS | Encounter Summary ---
Author Organization Healthcare Address [address] [place] [address] Care Team Providers Care Bronzer Name Role Phone Jevon Vazquez MD Primary Care Provider Encounter Details Date Type Department Care Team ([facility] st Contact Info) Description 10/13/2024 Telephone P[facility] CC Hematology/BMT and Cellular Therapy Program [address] [address] Zonia Hoffman, FAX MACHINE REPAIRER 800 [facility] [address] [place] [address] Social History Tobacco Use Types Packs/Day Years [...] needs to be delayed again Callback number: [phone] documented in this encounter Plan of Treatment Upcoming Encounters Date Type Department Care Team ([facility] st Contact Info) Description 11/28/2024 2:00 PM EDT Clinical Support [facility] CC Hematology/BMT and Cellular Therapy Program [address] [address] 11/28/2024 2:30 PM EDT Office Visit [facility] CC Hematology/BMT and Cellular Therapy Program [address] [address] Zonia Hoffman, FAX MACHINE REPAIRER 800 [facility] [address] [place] [address] 11/28/2024 4:00 PM EDT Appointment [facility] 1 [address] [place] [address] 11/29/2024 1:00 PM EDT Appointment [facility] 1 [address] [place] [address] 11/30/2024 1:00 PM EDT Appointment [facility] 1 [address] [place] [address] 12/01/2024 1:00 PM EDT Appointment [facility] 2 [address] [place] [address] 12/02/2024 2:30 PM EDT Appointment [facility] 2 [address] [place] [address] 12/03/2024 2:00 PM EDT Appointment [facility] 1 [address] [place] [address] 12/04/2024 1:00 PM EDT Appointment [facility] Infusion [address] [place] [address] documented as of this encounter Visit Diagnoses Not on filedocumented in this encounter Additional Health Concerns Assessment Noted Time A fall risk assessment has been complete d for the patient 09/30/2024 9:33 AM EDT A Body Mass Index follow-up plan has been documented for the patient 05/28/2024 1:52 PM EST documented as of this encounter Care Teams Bronzer Relationship Specialty Start Date End Date Jevon Vazquez MD [address] [place] [address] #1 #1 [place] [address] PCP - General 03/23/22 documented as of this encounter
--- OUTSIDE RECORDS SUMMARY | 2024-11-14 09:02 | XMS_ITS | Encounter Summary ---
Author Organization [facility] Address [address] [place] [address] Care Team Providers Care Gauge Controller Name Role Phone Jevon Vazquez MD Primary Care Provider [phone] Reason for Visit * Reason Comments Med Refill Encounter Details Date Type Department Care Team ([facility] Contact Info) Description 10/14/2024 Refill P[facility] CC Hematology/BMT and Cellular Therapy Program [address] [phone] New Mckinney MD 800 [facility] [address] [place] [address] Social History Tobacco Use Types Packs/Day Years [...] ([facility] Contact Info) Description 11/28/2024 2:00 PM EDT Clinical Support P[facility] CC Hematology/BMT and Cellular Therapy Program [address] [address] 11/28/2024 2:30 PM EDT Office Visit [facility] CC Hematology/BMT and Cellular Therapy Program [address] [address] Zonia Hoffman, CONSULTING GROUP ANALYST [address] [facility] [address] [place] [address] 11/28/2024 4:00 PM EDT Appointment [facility] 1 [address] [place] [address] 11/29/2024 1:00 PM EDT Appointment [facility] 1 [address] [place] [address] 11/30/2024 1:00 PM EDT Appointment [facility] 1 [address] [place] [address] 12/01/2024 1:00 PM EDT Appointment [facility] 2 [address] [place] [address] 12/02/2024 2:30 PM EDT Appointment [facility] 2 [address] [place] [address] 12/03/2024 2:00 PM EDT Appointment [facility] 1 [address] [place] [address] 12/04/2024 1:00 PM EDT Appointment [facility] Infusion 800 [place] [address] documented as of this encounter Visit Diagnoses [...] Date End Date Jevon Vazquez MD [address] [place] [address] #1 #1 [place] [address] PCP - General 03/23/22 documented as of this encounter
--- OUTSIDE RECORDS SUMMARY | 2024-11-14 09:03 | XMS_ITS | Clinical Summary ---
Author Organization [facility] Address [address] [place] [address] Care Team Providers Care Station Examiner Name Role Phone David Vazquez Primary Care Provider [phone] Allergies No known active allergies Medications atorvastatin [...] series) 2025 Medical Devices Implanted Type Area Supervisor Photoengraving Device Identifier Shelf Expiration Date Model / Serial / Lot Mis Ply Scr 6.5x50mm - [id number] Implanted:Qty : 1 on 01/30/2023 by Ivan Bartholomew MD at [facility] Screw N/A: Spine Lumbar [employer] [id number] / / Mis Ply Scr 6.5x45mm - [id number] Implanted:Qty : 3 on 01/30/2023 by Ivan Bartholomew MD at [facility] Screw N/A: Spine Lumbar [employer] [id number] / / Reline Mas Reduction Screw 7.5x45 - [id number] Implanted:Qty : 2 on 01/30/2023 by Ivan Bartholomew MD at [facility] Screw N/A: Spine Lumbar [employer] [id number] / / Grft Dbm Vesuvius Putty 5cc - [id number] Implanted:Qty : 1 on 01/30/2023 by Ivan Bartholomew MD at [facility] [employer] [id number] 04/20/2025 [id number] P / [id number] / Putty I-Factor 5.0cc - [id number] Implanted:Qty : 1 on 01/30/2023 by Ivan Bartholomew MD at [facility] N/A: Spine Lumbar [employer] 03/15/2025 [id number] / / [id number] Modulus Xlw [id number] 10 Degree - [id number] Implanted:Qty : 1 on 01/30/2023 by Ivan Bartholomew MD at [facility] N/A: Spine Lumbar [employer] [id number] / / [id number] Modulus Xlw 13o45x78uo - [id number] Implanted:Qty : 1 on 01/30/2023 by Ivan Bartholmoew MD at [facility] N/A: Spine Lumbar [employer] 09/28/2027 [id number] / / [id number] Reln Lock Scr 5.5mm Opn Tulip - [id number] Implanted:Qty : 6 on 01/30/2023 by Ivan Bartholomew MD at [facility] N/A: Spine Lumbar [employer] [id number] / / Reln Mas Ti Petar 5.5x70mm - [id number] Implanted:Qty : 2 on 01/30/2023 by Ivan Bartholomew MD at [facility] N/A: Spine Lumbar [employer] [id number] / / Procedures Procedure Name Priority Date/Time [...] al Result [facility] [address] * (ABNORMAL) BASIC METABOLIC PANEL (BMP=EP1) [...] lt [facility] [address] from Last 3 Months or Most Recently Relevant to Health Maintenance Insurance MEDICARE PART A [facility] [address] [address] [place] [address] ANTH Advance Directives For more information, please contact: [phone] * Full Code (Latest Code Status on File) Date Activated Date Inactivated Comments 01/30/2023 9:13 AM No automated chest compression devices for [facility] Patients Care Teams Station Examiner Relationship Specialty Start Date End Date David Vazquez [address] [place] [id number] PCP - General 01/24/23
--- OUTSIDE RECORDS SUMMARY | 2024-11-14 09:03 | XMS_ITS | Encounter Summary ---
Author Organization Healthcare Address [address] [place] [address] Care Team Providers Care Reporting Process Consultant Name Role Phone Jevon Vazquez MD Primary Care Provider [phone] Encounter Details Date Type Department Care Team [...] Hematology/BMT and Cellular Therapy Program [address] [phone] 11/28/2024 2:30 PM EDT Office Visit [facility] Hematology/BMT and Cellular Therapy Program [address] [address] Zonia Hoffman, C[employer]ER [employer] SHADER [address] [facility] [address] [place] [address] 11/28/2024 4:00 PM EDT Appointment [facility] [address] [place] [address] 11/29/2024 1:00 PM EDT Appointment [facility] [address] [place] [address] 11/30/2024 1:00 PM EDT Appointment [facility] [address] [place] [address] 12/01/2024 1:00 PM EDT Appointment [facility] [address] [place] [address] 12/02/2024 2:30 PM EDT Appointment [facility] [address] [place] [address] 12/03/2024 2:00 PM EDT Appointment [facility] [address] [place] [address] 12/04/2024 1:00 PM EDT Appointment [facility] [address] [place] [address] documented as of this encounter Visit Diagnoses Not on filedocumented in this encounter Additional Health Concerns Assessment Noted Time A fall risk assessment has been complete d for the patient 09/30/2024 9:33 AM EDT A Body Mass Index follow-up plan has been documented for the patient 05/28/2024 1:52 PM EST documented as of this encounter Care Teams Reporting Process Consultant Relationship Specialty Start Date End Date Jevon Vazquez MD [address] [place] [address] [address] [place] [address] PCP - General 03/23/22 documented as of this encounter
--- OUTSIDE RECORDS SUMMARY | 2024-11-14 09:03 | XMS_ITS | Encounter Summary ---
Author Organization [facility] Address [address] [place] [address] Care Team Providers Care Auction Block Clerk Name Role Phone Jevon Vazquez MD Primary Care Provider [phone] Reason for Visit * Reason Comments Med Refill Encounter Details Date Type Department Care Team ([facility] Contact Info) Description 11/08/2024 Refill [facility] Hematology/BMT and Cellular Therapy Program [address] [phone] [place] MD [address] [facility] [address] [place] [phone] Social History Tobacco Use Types Packs/Day Years [...] Encounters Date Type Department Care Team ([facility] Contact Info) Description 11/28/2024 2:00 PM EDT Clinical Support [facility] Hematology/BMT and Cellular Therapy Program [address] [address] 11/28/2024 2:30 PM EDT Office Visit [facility] Hematology/BMT and Cellular Therapy Program [address] [address] Zonia Hoffman, HEALTH AND FITNESS INSTRUCTOR [address] [facility] [address] [place] [address] 11/28/2024 4:00 PM EDT Appointment [facility] [address] [place] [address] 11/29/2024 1:00 PM EDT Appointment [facility] [address] [place] [address] 11/30/2024 1:00 PM EDT Appointment [facility] 1 [address] [place] [address] 12/01/2024 1:00 PM EDT Appointment [facility] [address] [place] [address] 12/02/2024 2:30 PM EDT Appointment [facility] [address] [place] [address] 12/03/2024 2:00 PM EDT Appointment [facility] [address] [place] [address] 12/04/2024 1:00 PM EDT Appointment [facility] [address] [place] [address] documented as of this encounter Visit Diagnoses Not on filedocumented in this encounter Additional Health Concerns Assessment Noted Time A fall risk assessment has been complete d for the patient 09/30/2024 9:33 AM EDT A Body Mass Index follow-up plan has been documented for the patient 05/28/2024 1:52 PM EST documented as of this encounter Care Teams Auction Block Clerk Relationship Specialty Start Date End Date Jevon Vazquez MD [address] [place] [address] [address]1 [address] [place] [address] PCP - General 03/23/22 documented as of this encounter
--- OUTSIDE RECORDS SUMMARY | 2024-11-14 09:03 | XMS_ITS | Clinical Summary ---
Author Organization [facility] Address [address] 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) 11/12/2024 Travel 11/12/2024 Telephone [facility] H[facility]ology[facility]BMT [facility] Cellular Therapy Program [address] [place] [address] [place] [phone] Zonia Hoffman, RODDY 11/11/2024 Travel 11/10/2024 Travel 11/09/2024 Travel 11/08/2024 Travel 11/08/2024 Refill [facility] Hematology/BMT and Cellular Therapy Program [address] [place] [phone] New Mckinney MD 11/07/2024 Travel 10/29/2024 Refill [facility] Hematology/BMT and Cellular Therapy Program [address] [phone] Zonia Hoffman, EPIC BEACON ANALYST 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); Immunosuppressed status (CMS/HCC) 10/28/2024 Telephone [facility] Hematology/BMT and Cellular Therapy Program [address] [place] [phone] Zonia Hoffman, EPIC BEACON ANALYST 10/27/2024 Telephone [facility] H[facility]ology[facility]BMT [facility] Cellular Therapy Program [address] [phone] Zonia Hoffman, EPIC BEACON ANALYST 10/27/2024 Travel 10/26/2024 Travel 10/24/2024 Travel 10/23/2024 Travel 10/22/2024 Travel 10/15/2024 Refill [facility] H[facility]ology/BMT and Cellular Therapy Program [address] [place] [phone] New Mckinney MD 10/14/2024 Refill [facility] H[facility]ology/BMT and Cellular Therapy Program [address] [place] [address] New Mckinney MD 10/13/2024 Telephone [facility]ology[facility]BMT and Cellular Therapy Program [address] [phone] Zonia Hoffman, EPIC BEACON ANALYST 10/13/2024 Travel 10/12/2024 Travel 10/11/2024 Travel 10/09/2024 Travel 10/08/2024 Travel 10/08/2024 Orders Only [facility] Hematology/BMT and Cellular Therapy Program [address] [place] [address] 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, 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) 10/07/2024 Travel 09/30/2024 9:30 AM EDT Office Visit [facility] Hematology/BMT and Cellular Therapy Program 750 [facility], [address] [place] [address] [place] [address] Zonia Hoffman APRN 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) 09/30/2024 9:00 AM EDT Clinical Support [facility] Hematology/BMT and Cellular Therapy Program [address] [facility], [address] [place] [address] [place] [phone] Jyoti Kemp 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) 09/30/2024 Telephone [facility] Hematology/BMT and Cellular Therapy Program [address] [facility], [address] [place] [address] [place] [phone] Zoraida Good RN 09/30/2024 Travel 09/29/2024 Travel 09/28/2024 Travel 09/27/2024 Travel 09/26/2024 Travel 09/25/2024 Travel 09/24/2024 Travel 09/23/2024 Travel 09/19/2024 12:00 PM EDT Procedure Visit [facility] Hematology/BMT and Cellular Therapy Program [address] [facility], [address] [place] [address] [place] [address] Lexi Ferraro, EPIC BEACON ANALYST 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) 09/19/2024 7:30 AM EDT Clinical Support [facility] Hematology/BMT and Cellular Therapy Program [address] [facility], [address] [place] [address] [place] [address] 09/19/2024 Telephone [facility]ematology/BMT and Cellular Therapy Program [address] [facility], [address] [place] [phone] Romana Richmond, RN 09/19/2024 Orders Only [facility] H[facility]ology[facility]BMT and Cellular Therapy Program [address] [place] [phone] 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 RN 09/19/2024 Travel 09/15/2024 Telephone [facility]MT [facility] Cellular Therapy Program [address] [place] [phone] Zonia Hoffman, EPIC BEACON ANALYST 09/15/2024 Travel 09/14/2024 Travel 09/13/2024 Travel 09/12/2024 Travel 09/12/2024 Refill [facility]BMT [facility] Cellular Therapy Program [address] [place] [phone] New Mckinney MD 09/11/2024 Travel 09/10/2024 Travel 09/01/2024 Telephone [facility]BMT [facility] Cellular Therapy Program [address] [place] [phone] Zonia Hoffman, EPIC BEACON ANALYST 08/31/2024 Travel 08/30/2024 Travel 08/18/2024 Telephone [facility] Cellular Therapy Program [address] [place] [phone] Romana Gorman, EPIC BEACON ANALYST 08/17/2024 Travel 08/16/2024 Travel 08/15/2024 Travel from Last 3 Months Immunizations Immunization [...] 11/28/2024 2:00 PM EDT Clinical Support [facility] Therapy [facility] [address] [phone] 11/28/2024 2:30 PM EDT Office Visit [facility] H[facility]ology[facility]BMT [facility] Cellular Therapy Program [address] [phone] Zonia Hoffman, EPIC BEACON ANALYST 800 [facility] [address] [place] [phone] 11/28/2024 4:00 PM EDT Appointment [facility] [address] [place] [address] 11/29/2024 1:00 PM EDT Appointment [facility] 1 [address] [place] [address] 11/30/2024 1:00 PM EDT Appointment [facility] 1 [address] [place] [address] 12/01/2024 1:00 PM EDT Appointment [facility] 2 [address] [place] [address] 12/02/2024 2:30 PM EDT Appointment [facility] [address] [place] [address] 12/03/2024 2:00 PM EDT Appointment [facility] [address] [place] [address] 12/04/2024 1:00 PM EDT Appointment [facility] [address] [place] [address] Health Maintenance Due Date Last Done Comments [...] UKY-Zoster Vaccines (1 of 2) 05/16/2023 03/21/2023 [id number] Vaccine ( - season) 2023 02/18/2021, 07/10/2020, 06/12/2020 UKY-Bone [...] this topic Medical Devices Implanted Type Area Director Business Systems Device Identifier Shelf Expiration Date Model / Serial / Lot Port Clearvue Power 8fr - [id number] Implanted:Qty: 1 on 01/21/2024 by Ness Sargent MD at [facility] Peripherial [id number] / / Procedures Procedure Name Priority Date/Time [...] LAB HEMATOLOGY METHOD 09/30/2024 11:07 AM EDT [facility] RBC Count 1.91(L) 3.90 - 5.20 10*6/uL LAB HEMATOLOGY METHOD 09/30/2024 11:07 AM EDT [facility] HGB 7.7(L) 11.2 - 15.7 g/dL LAB HEMATOLOGY METHOD 09/30/2024 11:07 AM EDT [facility] HCT 22.8(L) 34.0 - 45.0 % LAB HEMATOLOGY METHOD 09/30/2024 11:07 AM EDT [facility] Platelet Count 17(LL) 155 - 369 10*3/uL LAB HEMATOLOGY METHOD 09/30/2024 11:07 AM EDT [facility] MCV 119(H) 79 - 98 fL LAB HEMATOLOGY METHOD 09/30/2024 11:07 AM EDT [facility] MCH 40.3(H) 26.0 - 32.0 pg LAB HEMATOLOGY METHOD 09/30/2024 11:07 AM EDT [facility] MCHC 33.8 30.7 - 35.5 g/dL LAB HEMATOLOGY METHOD 09/30/2024 11:07 AM EDT [facility] RDW 18.7(H) 11.5 - 14.5 % LAB HEMATOLOGY METHOD 09/30/2024 11:07 AM EDT [facility] MPV 11.1 8.8 - 12.5 fL LAB HEMATOLOGY METHOD 09/30/2024 11:07 AM EDT [facility] nRBC 0.0 <=0.0 per 100 WBCs LAB HEMATOLOGY METHOD 09/30/2024 11:07 AM EDT [facility] Differential Type Automated LAB HEMATOLOGY METHOD 09/30/2024 11:07 AM EDT [facility] Neutrophils % 65 % LAB HEMATOLOGY METHOD 09/30/2024 11:07 AM EDT [facility] Lymphocytes % 26 % LAB HEMATOLOGY METHOD 09/30/2024 11:07 AM EDT [facility] Monocytes % 7 % LAB HEMATOLOGY METHOD 09/30/2024 11:07 AM EDT [facility] Eosinophils % 1 % LAB HEMATOLOGY METHOD 09/30/2024 11:07 AM EDT [facility] Basophils % 1 % LAB HEMATOLOGY METHOD 09/30/2024 11:07 AM EDT [facility] Immature Granulocytes % 0 % LAB HEMATOLOGY METHOD 09/30/2024 11:07 AM EDT [facility] Neutrophils Absolute 2.17 1.60 - 6.10 10*3/uL LAB HEMATOLOGY METHOD 09/30/2024 11:07 AM EDT [facility] Lymphocytes Absolute 0.87(L) 1.20 - 3.90 10*3/uL LAB HEMATOLOGY METHOD 09/30/2024 11:07 AM EDT [facility] Monocytes Absolute 0.24(L) 0.30 - 0.90 10*3/uL LAB HEMATOLOGY METHOD 09/30/2024 11:07 AM EDT [facility] Eosinophils Absolute 0.03 0.00 - 0.50 10*3/uL LAB HEMATOLOGY METHOD 09/30/2024 11:07 AM EDT [facility] Basophils Absolute 0.02 0.00 - 0.10 10*3/uL LAB HEMATOLOGY METHOD 09/30/2024 11:07 AM EDT [facility] Immature Granulocytes Absolute 0.01 0.00 - 0.06 10*3/uL LAB HEMATOLOGY METHOD 09/30/2024 11:07 AM EDT [facility] Blood Venous blood specimen / Unknown (Port) Long-term Catheter / Unknown 09/30/2024 9:11 AM EDT 09/30/2024 9:34 AM EDT Narrative [facility] - 09/30/2024 11:07 AM EDT Therapeutic decision making should be based on absolute values, rather than percentages. us Zonia Hoffman APRN LAB BLOOD ORDERABLES Final Res ult [facility] [address] [place] [address] * (ABNORMAL) Comprehensive Metabolic Panel, Plasma (09/30/2024 9:11 AM EDT) Glucose, Plasma 135(H) 74 - 99 mg/dL 09/30/2024 10:20 AM EDT [facility] BUN, Plasma 21 8 - 23 mg/dL 09/30/2024 10:20 AM EDT [facility] Creatinine, Plasma 1.00 0.60 - 1.10 mg/dL 09/30/2024 10:20 AM EDT [facility] BUN/Creatinine Ratio 21 09/30/2024 10:20 AM EDT [facility] Sodium, Plasma 137 136 - 145 mmol/L 09/30/2024 10:20 AM EDT [facility] Potassium, Plasma 3.8 3.6 - 4.9 mmol/L 09/30/2024 10:20 AM EDT [facility] Chloride, Plasma 107 97 - 107 mmol/L 09/30/2024 10:20 AM EDT [facility] CO2, Plasma 22 22 - 29 mmol/L 09/30/2024 10:20 AM EDT [facility] Anion Gap 8 6 - 16 mmol/L 09/30/2024 10:20 AM EDT [facility] Total Calcium, Plasma 9.8 8.9 - 10.2 mg/dL 09/30/2024 10:20 AM EDT [facility] Total Protein 5.9(L) 6.3 - 7.9 g/dL 09/30/2024 10:20 AM EDT [facility] Albumin, Plasma 3.8 3.5 - 5.2 g/dL 09/30/2024 10:20 AM EDT [facility] AST, Plasma 28 10 - 35 U/L 09/30/2024 10:20 AM EDT [facility] ALT, Plasma 14 10 - 35 U/L 09/30/2024 10:20 AM EDT [facility] Alkaline Phosphatase, Plasma 34(L) 46 - 142 U/L 09/30/2024 10:20 AM EDT [facility] Total Bilirubin, Plasma 0.3 0.2 - 1.1 mg/dL 09/30/2024 10:20 AM EDT [facility] eGFRcr 59.6 mL/min/1.7 3m*2 09/30/2024 10:20 AM EDT [facility] Comment:Reported eGFRcr in m L/min/1.73m2 is based the CKD-EPI 2020 equation that does not use a race coefficient. Blood Venous blood specimen / Unknown (Port) Long-term Catheter / Unknown 09/30/2024 9:11 AM EDT 09/30/2024 9:50 AM EDT Zonia Hoffman APRN LAB BLOOD ORDERABLES Final Res ult [facility] [address] [place] [address] * BIOPSY BONE MARROW (09/19/2024 12:00 PM [...] surronding structures. Alternatives discussed: Delayed treatment [place] protocol: Procedure explained and questions answered [...] LAB HEMATOLOGY METHOD 09/19/2024 10:19 AM EDT [facility] Blood Blood sample taken from central line / Unknown (Port) Long-term Catheter / Unknown 09/19/2024 10:04 AM EDT 09/19/2024 10:18 AM EDT us New Mckinney MD LAB BLOOD ORDERABLES Final Re sult [facility] [address] [place] [address] * Transfuse platelets, Irradiated (09/19/2024 10:02 AM EDT) Lexi Ferraro APRN BLOOD TRANSFUSION ORDERABL ES Final Result * Prepare Leukocyte Reduced Platelets (09/19/2024 9:08 AM EDT) Product Code [id number] BLOO D BANK Dispense Status Transfused BLOOD BANK Blood Expiration Date [id number] BLOOD BANK Unit Number [id number] B LOOD BANK Product Blood Type 6200 BLOOD BANK Blood Type A+ BLOOD BANK us Provider Not In System BLOOD BANK PRODUCT ORD ERABLES Final Result BLOOD BANK [address] [place] [address], * Myeloid Focused Panel, 50 gene (09/19/2024 7:29 AM EDT) Interpretation The following two (2) genes, TP53 and DNMT3A, with persistent variants have been detected in this bone marrow specimen. The variant, p.[id number], in TP53 gene and the variant, p.[id number], in the RUNX 1 gene are not detectable at current cutoff and coverage established in this lab. Gene: TP53 Mutation: c.814G>A; p.Voc510Xue Allele Frequency (%): 37% (45% Dec 2023) ID: [id number] Gene: DNMT3A Mutation: c.1522delC; p.[id number] 3 Allele Frequency (%): 36% (48% Dec 2023) Additional Details on Mutation Identified: Gene Transcript Genome Chrom Coordinate RefVar DNMT3A [id number] Hg19 2 [id number] delC TP53 [id number] Hg19 17 [id number] G>A 09/29/2024 4:05 PM EDT [facility] [...] then sequenced on the Illumina NextSeq 2000 ([employer], [place]). A custom bioinformatics pipeline aligns [...] of hematologic malignancies. 09/29/2024 4:05 PM EDT [facility] Disclaimer This test was developed and its performance characteristics determined by the Clinical Molecular and Genomic Pathology Laboratory at the [facility]. It has not been cleared or [...] clinical laboratory testing. 09/29/2024 4:05 PM EDT [facility] Pathologist Signature Reviewed by: Corey Tejada 09/29/2024 4:05 PM EDT [facility] Bone Marrow Specimen from bone marrow obtained by aspiration / Unknown Non-blood Collection / Unknown 09/19/2024 7:29 AM EDT 09/19/2024 12:03 PM EDT us New Mckinney MD LAB MOLECULAR DIAGNOSTICS ORD ERABLES Final Result [facility] [address] [place] [address], * Chromosome Karyotype, Oncology (09/19/2024 7:29 AM EDT) Specimen Type Bone Marrow 09/24/2024 2:37 PM EDT [facility] Clinical Indication Myelodysplastic Syndrome 09/24/2024 2:37 PM EDT [facility] Specimen Adequacy Adequate 025 2:37 PM EDT [facility] Chromosome Analysis Result Giemsa-banded metaphase cells from unstimulated bone marrow cultures showed a 46,XX[20] chromosome pattern. 09/24/2024 2:37 PM EDT [facility] Interpretation Normal female chromosome analysis. No clonal abnormalities were detected at current resolution. Clinical correlation is recommended. # cells counted = 20 # cells analyzed = 20 # cells karyotyped = 2 Band resolution: 450-525 09/24/2024 2:37 PM EDT [facility] Pathologist Signature Reviewed by: Corey Tejada 09/24/2024 2:37 PM EDT [facility] Bone Marrow Non-blood Collection / Unknown 09/19/2024 7:29 AM EDT 09/19/2024 12:35 PM EDT us New Mckinney MD LAB CYTOGENETICS ORDERABLES F inal Result [facility] [address] [place] [address] * Leukemia/Lymphoma - Immunophenotyping by Flow Cytometry (09/19/2024 7:29 AM EDT) Clinical Indication AML 09/22/2024 10:29 AM EDT [facility] Flow Cytometry Interpretation A. BONE MARROW FOR FLOW CYTOMETRY: - MIXED MARROW ELEMENTS WITH NO EVIDENCE OF INCREASED BLASTS OR ABNORMAL LYMPHOID POPULATIONS, SEE COMMENT. 09/22/2024 10:29 AM EDT [facility] Comments CD45/side scatter analysis shows [...] surface light chains 09/22/2024 10:29 AM EDT [facility] Disclaimer This test was developed and its performance characteristics determined by the Immuno-Molecular Pathology Laboratory at the [facility]. It has not been cleared or [...] on the report. 09/22/2024 10:29 AM EDT [facility] Pathologist Signature Reviewed by: Lisandra Epstein MD 09/22/2024 10:29 AM EDT [facility] MRD Indicated Test Not Indicated 12/2024 10:29 AM EDT [facility] Bone Marrow Specimen from bone marrow obtained by aspiration / Unknown Non-blood Collection / Unknown 09/19/2024 7:29 AM EDT 09/19/2024 12:13 PM EDT us New Mckinney MD LAB FLOW CYTOMETRY ORDERABLES Final Result [facility] [address] [place] [address] * Bone marrow exam (09/19/2024 7:29 AM EDT) Case Report Bone Marrow Case: [id number] Authorizing Provider: New Mckinney MD Collected: 09/19/2024 0729 Ordering Location: [facility] Hematology/BMT and Received: 09/19/2024 1216 Cellular Therapy Program Pathologist: Lisandra Epstein MD Specimens: A) - Bone Marrow Aspirate, right B) - Bone Marrow Biopsy, right C) - Peripheral Blood for Bone Marrow 3:15 PM EDT [facility] Cytogenetics Report, Addendum Chromosome Analysis Result Giemsa-banded metaphase cells from unstimulated bone marrow cultures showed a 46,XX[20] chromosome pattern. Interpretation Normal female chromosome analysis. No clonal abnormalities were detected at current resolution. Clinical correlation is recommended. 3:15 PM EDT [facility] Addendum electronically signed by Lisandra Epstein MD on 09/24/2024 at 1630 EDT Addendum Interpretation The following two (2) genes, TP53 and DNMT3A, with persistent variants have been detected in this bone marrow specimen. The variant, p.[id number], in TP53 gene and the variant, p.[id number], in the RUNX 1 gene are not detectable at current cutoff and coverage established in this lab. Gene: TP53 Mutation: c.814G>A; p.Zgw621Ntr Allele Frequency (%): 37% (45% Dec 2023) ID: [id number] Gene: DNMT3A Mutation: c.1522delC; p.[id number] 43 Allele Frequency (%): 36% (48% Dec 2023) Additional Details on Mutation Identified: 3:15 PM EDT [facility] Addendum electronically signed by Lisandra Epstein MD on 09/30/2024 at 1515 EDT Final Diagnosis PERIPHERAL BLOOD AND BONE MARROW, RIGHT POSTERIOR ILIAC CREST, (ASPIRATE SMEAR, AND CORE BIOPSY): - HYPOCELLULAR BONE MARROW WITH MARKEDLY DECREASED MEGAKARYOCYTES; NO SIGNIFICANT DYSPOIESIS OR INCREASE IN BLASTS. 3:15 PM EDT [facility] at 1453 EDT Clinical Information AML 09/14 3:15 PM EDT [facility] CBC and Differential PERIPHERAL BLOOD: [...] blasts are not seen. 3:15 PM EDT [facility] Bone Marrow Differential BONE MARROW DIFFERENTIAL: 200 cells Normal Patient Neutrophils 15-50 34 Metamyelocytes 4-19 3 Myelocytes 1-18 10 Promyelocytes 1-8 1 Blasts 0-2 1 Monocytes 0-5 4 Erythroid 16-38 22 Lymphocytes 3-24 13 Eosinophils 0-6 8 Basophils 0-2 0 Plasma cells 0-4 4 Other 3:15 PM EDT [facility] Bone Marrow Aspirate and Biopsy [...] Bone trabeculae are unremarkable. 3:15 PM EDT [facility] Special and Immunohistochemical Stains Special Stain: A1-1 Vazquez-Giemsa A1-2 Vazquez-Giemsa A1-3 Vazquez-Giemsa C1-1 Vazquez-Giemsa IHC: B1-2 CD34 All controls show appropriate reactivity. All immunohistochemis try, in situ hybridization, and histochemical tests were developed by and are performed at the [facility], [address] [place] [address]. All tests reported here, except those addressing [...] negativity on decalcified specimens. 3:15 PM EDT [facility] Flow Cytometry Interpretation MIXED MARROW ELEMENTS WITH NO EVIDENCE OF INCREASED BLASTS OR ABNORMAL LYMPHOID POPULATIONS ([id number]). 3:15 PM EDT [facility] CYTOGENETICS/MOLECULA R INTERPRETATION Correlation with cytogenetic/molec ular analysis is suggested. 3:15 PM EDT [facility] Gross Description B. RIGHT A single specimen is received in formalin labeled bone marrow biopsy right posterior iliac crest and consists of 2 piece(s) of red/white tissue measuring 2.1/0.3 cm in length 0.2 cm in diameter. The specimen is submitted in to Histology for decalcification and routine processing. Cold Time: <1m 3:15 PM EDT [facility] Note: A resident was involved in the service. I attest I examined the relevant preparations for the specimens and confirmed the diagnosis or interpretation. 3:15 PM EDT [facility] Bone Marrow Peripheral blood specimen / Unknown [...] PATHOLOGY ORDERABLES Edit ed Result - Final [facility] [address] [place] [address] * Hepatitis C Antibody w/Reflex to HCV Quant PCR (01/07/2024 8:42 AM EDT) Hepatitis C Antibody Negative Negative 01/07/2024 10:13 AM EDT [facility] Blood Venous blood specimen / Unknown Venipuncture / Unknown 01/07/2024 8:42 AM EDT 01/07/2024 9:25 AM EDT us New Mckinney MD LAB BLOOD ORDERABLES Final Re sult [facility] [address] [place] [address] from Last 3 Months or Most Recently Relevant to Health Maintenance Insurance MEDICARE [id number] Care Teams Assistant Manager Relationship Specialty Start Date End Date Jevon Vazquez MD [address] [place] [address] #1 #1 JOSEP [place] [id number] [facility] - General 03/23/22
--- OUTSIDE RECORDS SUMMARY | 2024-11-14 09:03 | XMS_ITS | Encounter Summary ---
Author Organization Healthcare Address [address] [place] [address] Care Team Providers Care Shake Cutter Name Role Phone Jevon Vazquez MD Primary Care Provider [phone] Encounter Details Date Type Department Care Team [...] Hematology/BMT and Cellular Therapy Program [address] [address] 11/28/2024 2:30 PM EDT Office Visit [facility] Hematology/BMT and Cellular Therapy Program [address] [address] Zonia Hoffman, CATCHER FILTER TIP 800 [facility] [address] [place] [address] 11/28/2024 4:00 PM EDT Appointment [facility] 1 [address] [place] [address] 11/29/2024 1:00 PM EDT Appointment [facility] 1 [address] [place] [address] 11/30/2024 1:00 PM EDT Appointment [facility] 1 [address] [place] [address] 12/01/2024 1:00 PM EDT Appointment [facility] 2 [address] [place] [address] 12/02/2024 2:30 PM EDT Appointment [facility] 2 [address] [place] [address] 12/03/2024 2:00 PM EDT Appointment [facility] 1 [address] [place] [address] 12/04/2024 1:00 PM EDT Appointment [facility] Infusion 800 [place] [address] documented as of this encounter Visit Diagnoses Not on filedocumented in this encounter Additional Health Concerns Assessment Noted Time A fall risk assessment has been complete d for the patient 09/30/2024 9:33 AM EDT A Body Mass Index follow-up plan has been documented for the patient 05/28/2024 1:52 PM EST documented as of this encounter Care Teams Shake Cutter Relationship Specialty Start Date End Date Jevon Vazquez MD [address] [place] [address] #1 #1 [place] [address] PCP - General 03/23/22 documented as of this encounter
--- OUTSIDE RECORDS SUMMARY | 2024-11-14 09:03 | XMS_ITS | Encounter Summary ---
Author Organization Healthcare Address [address] [place] [address] Care Team Providers Care Edge Grinder Name Role Phone Jevon Vazquez MD Primary Care Provider [phone] Encounter Details Date Type Department Care Team [...] Hematology/BMT and Cellular Therapy Program [address] [address] 11/28/2024 2:30 PM EDT Office Visit [facility] Hematology/BMT and Cellular Therapy Program [address] [address] Zonia Hoffman, CHIEF NURSE ANESTHETIST 800 [facility] [address] [place] [address] 11/28/2024 4:00 PM EDT Appointment [facility] 1 [address] [place] [address] 11/29/2024 1:00 PM EDT Appointment [facility] 1 [address] [place] [address] 11/30/2024 1:00 PM EDT Appointment [facility] 1 [address] [place] [address] 12/01/2024 1:00 PM EDT Appointment [facility] 2 [address] [place] [address] 12/02/2024 2:30 PM EDT Appointment [facility] 2 [address] [place] [address] 12/03/2024 2:00 PM EDT Appointment [facility] 1 [address] [place] [address] 12/04/2024 1:00 PM EDT Appointment [facility] Infusion 800 [place] [address] documented as of this encounter Visit Diagnoses Not on filedocumented in this encounter Additional Health Concerns Assessment Noted Time A fall risk assessment has been complete d for the patient 09/30/2024 9:33 AM EDT A Body Mass Index follow-up plan has been documented for the patient 05/28/2024 1:52 PM EST documented as of this encounter Care Teams Edge Grinder Relationship Specialty Start Date End Date Jevon Vazquez MD [address] [place] [address] #1 #1 [place] [address] PCP - General 03/23/22 documented as of this encounter
--- OUTSIDE RECORDS SUMMARY | 2024-11-14 09:03 | XMS_ITS | Encounter Summary ---
Author Organization [facility] Address [address] [place] [address] Care Team Providers Care Insole Reinforcer Name Role Phone Jevon Vazquez MD Primary Care Provider [phone] Reason for Visit * Reason Comments Med Refill Encounter Details Date Type Department Care Team ([facility] Contact Info) Description 10/15/2024 Refill [facility] Hematology/BMT and Cellular Therapy Program [address] [phone] [place] Mckinney MD 800 [facility] [address] [place] [address] Social History Tobacco Use Types Packs/Day Years [...] and Cellular Therapy Program [address] [address] 11/28/2024 2:30 PM EDT Office Visit [facility] Hematology/BMT and Cellular Therapy Program [address] [address] Zonia Hoffman, RAW MILL OPERATOR [address] [facility] [address] [place] [address] 11/28/2024 4:00 PM EDT Appointment [facility] 1 [address] [place] [address] 11/29/2024 1:00 PM EDT Appointment [facility] 1 [address] [place] [address] 11/30/2024 1:00 PM EDT Appointment [facility] 1 [address]44 [place] [address] 12/01/2024 1:00 PM EDT Appointment [facility] 2 [address]44 [place] [address] 12/02/2024 2:30 PM EDT Appointment [facility] 2 [address] [place] [address] 12/03/2024 2:00 PM EDT Appointment [facility] 1 [address] [place] [address] 12/04/2024 1:00 PM EDT Appointment [facility] Infusion 800 [place] [address] documented as of this encounter Visit Diagnoses Not on filedocumented in this encounter Additional Health Concerns Assessment Noted Time A fall risk assessment has been complete d for the patient 09/30/2024 9:33 AM EDT A Body Mass Index follow-up plan has been documented for the patient 05/28/2024 1:52 PM EST documented as of this encounter Care Teams Insole Reinforcer Relationship Specialty Start Date End Date Jevon Vazquez MD [address] [place] [address] #1 #1 [place] [address] PCP - General 03/23/22 documented as of this encounter
--- OUTSIDE RECORDS SUMMARY | 2024-11-14 09:03 | XMS_ITS | Encounter Summary ---
Author Organization Healthcare Address [address] [place] [address] Care Team Providers Care Insurance Account Representative Name Role Phone Jevon Vazquez MD Primary Care Provider [phone] Encounter Details Date Type Department Care Team [...] Hematology/BMT and Cellular Therapy Program [address] [address] 11/28/2024 2:30 PM EDT Office Visit [facility] Hematology/BMT and Cellular Therapy Program [address] [address] Zonia Hoffman, WELL REACTIVATOR OPERATOR 800 [facility] [address] [place] [address] 11/28/2024 4:00 PM EDT Appointment [facility] 1 7[address] [place] [address] 11/29/2024 1:00 PM EDT Appointment [facility] 1 [address] [place] [address] 11/30/2024 1:00 PM EDT Appointment [facility] 1 [address] [place] [address] 12/01/2024 1:00 PM EDT Appointment [facility] 2 [address] [place] [address] 12/02/2024 2:30 PM EDT Appointment [facility] 2 [address] [place] [address] 12/03/2024 2:00 PM EDT Appointment [facility] 1 [address] [place] [address] 12/04/2024 1:00 PM EDT Appointment [facility] Infusion 800 [place] [address] documented as of this encounter Visit Diagnoses Not on filedocumented in this encounter Additional Health Concerns Assessment Noted Time A fall risk assessment has been complete d for the patient 09/30/2024 9:33 AM EDT A Body Mass Index follow-up plan has been documented for the patient 05/28/2024 1:52 PM EST documented as of this encounter Care Teams Insurance Account Representative Relationship Specialty Start Date End Date Jevon Vazquez MD [address] [place] [address] #1 #1 [place] [address] PCP - General 03/23/22 documented as of this encounter
--- OUTSIDE RECORDS SUMMARY | 2024-11-14 09:03 | XMS_ITS | Encounter Summary ---
Author Organization Healthcare Address [address] [place] [address] Care Team Providers Care Men'S Leather Dress Belt Maker Name Role Phone Jevon Vazquez MD Primary Care Provider [phone] Encounter Details Date Type Department Care Team [...] Hematology/BMT and Cellular Therapy Program [address] [address] 11/28/2024 2:30 PM EDT Office Visit [facility] Hematology/BMT and Cellular Therapy Program [address] [address] Zonia Hoffman, ICING MIXER 800 [facility] [address] [place] [address] 11/28/2024 4:00 PM EDT Appointment [facility] 1 [address] [place] [address] 11/29/2024 1:00 PM EDT Appointment [facility] 1 [address] [place] [address] 11/30/2024 1:00 PM EDT Appointment [facility] 1 [address] [place] [address] 12/01/2024 1:00 PM EDT Appointment [facility] 2 [address] [place] [address] 12/02/2024 2:30 PM EDT Appointment [facility] 2 [address] [place] [address] 12/03/2024 2:00 PM EDT Appointment [facility] 1 [address] [place] [address] 12/04/2024 1:00 PM EDT Appointment [facility] Infusion 800 [place] [address] documented as of this encounter Visit Diagnoses Not on filedocumented in this encounter Additional Health Concerns Assessment Noted Time A fall risk assessment has been complete d for the patient 09/30/2024 9:33 AM EDT A Body Mass Index follow-up plan has been documented for the patient 05/28/2024 1:52 PM EST documented as of this encounter Care Teams Men'S Leather Dress Belt Maker Relationship Specialty Start Date End Date Jevon Vazquez MD [address] [place] [address] #1 #1 [place] [address] PCP - General 03/23/22 documented as of this encounter
--- OUTSIDE RECORDS SUMMARY | 2024-11-14 09:03 | XMS_ITS | Encounter Summary ---
Author Organization Healthcare Address [address] [place] [address] Care Team Providers Care Enrollment Services Dean Name Role Phone Jevon Vazquez MD Primary Care Provider [phone] Encounter Details Date Type Department Care Team [...] Hematology/BMT and Cellular Therapy Program [address] [address] 11/28/2024 2:30 PM EDT Office Visit [facility] Hematology/BMT and Cellular Therapy Program [address] [address] Zonia Hoffman, TREE PULLER 800 [facility] [address] [place] [address] 11/28/2024 4:00 PM EDT Appointment [facility] 1 [address] [place] [address] 11/29/2024 1:00 PM EDT Appointment [facility] 1 [address] [place] [address] 11/30/2024 1:00 PM EDT Appointment [facility] 1 [address] [place] [address] 12/01/2024 1:00 PM EDT Appointment [facility] 2 [address] [place] [address] 12/02/2024 2:30 PM EDT Appointment [facility] 2 [address] [place] [address] 12/03/2024 2:00 PM EDT Appointment [facility] 1 [address] [place] [address] 12/04/2024 1:00 PM EDT Appointment [facility] Infusion 800 [place] [address] documented as of this encounter Visit Diagnoses Not on filedocumented in this encounter Additional Health Concerns Assessment Noted Time A fall risk assessment has been complete d for the patient 09/30/2024 9:33 AM EDT A Body Mass Index follow-up plan has been documented for the patient 05/28/2024 1:52 PM EST documented as of this encounter Care Teams Enrollment Services Dean Relationship Specialty Start Date End Date Jevon Vazquez MD [address] [place] [address] #1 #1 [place] [address] PCP - General 03/23/22 documented as of this encounter
--- OUTSIDE RECORDS SUMMARY | 2024-11-14 09:03 | XMS_ITS | Encounter Summary ---
Author Organization Healthcare Address [address] [place] [address] Care Team Providers Care Mannequin Refinisher Name Role Phone Jevon Vazquez MD Primary Care Provider [phone] Encounter Details Date Type Department Care Team ([facility] st Contact Info) Description 10/28/2024 Telephone [facility] CC Hematology/BMT and Cellular Therapy Program [address] [address] Zonia Hoffman, DIRECTOR MANUFACTURING ENGINEERING 800 [facility] [address] [place] [address] Social History Tobacco Use Types Packs/Day Years [...] go over her labs results Callback number: [phone] documented in this encounter Plan of Treatment Upcoming Encounters Date Type Department Care Team (Late st Contact Info) Description 11/28/2024 2:00 PM EDT Clinical Support [facility] Hematology/BMT and Cellular Therapy Program 750 [facility], [address] [place] [address] 11/28/2024 2:30 PM EDT Office Visit [facility] Hematology/BMT and Cellular Therapy Program 750 [facility], [address] [place] [address] Zonia Hoffman, DIRECTOR MANUFACTURING ENGINEERING 800 [facility] [address] [place] [address] 11/28/2024 4:00 PM EDT Appointment [facility] 1 [address]44 [place] [address] 11/29/2024 1:00 PM EDT Appointment [facility] 1 [address] [place] [address] 11/30/2024 1:00 PM EDT Appointment [facility] 1 [address] [place] [address] 12/01/2024 1:00 PM EDT Appointment [facility] 2 [address] [place] [address] 12/02/2024 2:30 PM EDT Appointment [facility] 2 [address] [place] [address] 12/03/2024 2:00 PM EDT Appointment [facility] 1 [address] [place] [address] 12/04/2024 1:00 PM EDT Appointment [facility] Infusion 800 [place] [address] documented as of this encounter Visit Diagnoses Not on filedocumented in this encounter Additional Health Concerns Assessment Noted Time A fall risk assessment has been complete d for the patient 09/30/2024 9:33 AM EDT A Body Mass Index follow-up plan has been documented for the patient 05/28/2024 1:52 PM EST documented as of this encounter Care Teams Mannequin Refinisher Relationship Specialty Start Date End Date Jevon Vazquez MD [address] [place] [address] #1 #1 [place] [address] PCP - General 03/23/22 documented as of this encounter
--- OUTSIDE RECORDS SUMMARY | 2024-11-14 09:03 | XMS_ITS | Encounter Summary ---
Author Organization Healthcare Address [address] [place] [address] Care Team Providers Care Desulfurizer Operator Name Role Phone Jevon Vazquez MD Primary Care Provider [phone] Encounter Details Date Type Department Care Team [...] Hematology/BMT and Cellular Therapy Program [address] [address] 11/28/2024 2:30 PM EDT Office Visit [facility] Hematology/BMT and Cellular Therapy Program [address] [address] Zonia Hoffman, ARTILLERY OFFICER 800 [facility] [address] [place] [address] 11/28/2024 4:00 PM EDT Appointment [facility] 1 744 [place] [address] 11/29/2024 1:00 PM EDT Appointment [facility] 1 [address] [place] [address] 11/30/2024 1:00 PM EDT Appointment [facility] 1 [address] [place] [address] 12/01/2024 1:00 PM EDT Appointment [facility] 2 [address] [place] [address] 12/02/2024 2:30 PM EDT Appointment [facility] 2 [address] [place] [address] 12/03/2024 2:00 PM EDT Appointment [facility] 1 [address] [place] [address] 12/04/2024 1:00 PM EDT Appointment [facility] Infusion 800 [place] [address] documented as of this encounter Visit Diagnoses Not on filedocumented in this encounter Additional Health Concerns Assessment Noted Time A fall risk assessment has been complete d for the patient 09/30/2024 9:33 AM EDT A Body Mass Index follow-up plan has been documented for the patient 05/28/2024 1:52 PM EST documented as of this encounter Care Teams Desulfurizer Operator Relationship Specialty Start Date End Date Jevon Vazquez MD [address] [place] [address] #1 #1 [place] [address] PCP - General 03/23/22 documented as of this encounter
--- OUTSIDE RECORDS SUMMARY | 2024-11-14 09:03 | XMS_ITS | Encounter Summary ---
Author Organization Healthcare Address [address] [place] [address] Care Team Providers Care Systems Test Engineer Name Role Phone Jevon Vazquez MD Primary Care Provider [phone] Encounter Details Date Type Department Care Team [...] Hematology/BMT and Cellular Therapy Program [address] [address] 11/28/2024 2:30 PM EDT Office Visit [facility] Hematology/BMT and Cellular Therapy Program [address] [address] Zonia Hoffman, QUALITY HEAD 800 [facility] [address] [place] [address] 11/28/2024 4:00 PM EDT Appointment [facility] 1 [address] [place] [address] 11/29/2024 1:00 PM EDT Appointment [facility] 1 [address] [place] [address] 11/30/2024 1:00 PM EDT Appointment [facility] 1 [address] [place] [address] 12/01/2024 1:00 PM EDT Appointment [facility] 2 [address] [place] [address] 12/02/2024 2:30 PM EDT Appointment [facility] 2 [address] [place] [address] 12/03/2024 2:00 PM EDT Appointment [facility] 1 [address] [place] [address] 12/04/2024 1:00 PM EDT Appointment [facility] Infusion 800 [place] [address] documented as of this encounter Visit Diagnoses Not on filedocumented in this encounter Additional Health Concerns Assessment Noted Time A fall risk assessment has been complete d for the patient 09/30/2024 9:33 AM EDT A Body Mass Index follow-up plan has been documented for the patient 05/28/2024 1:52 PM EST documented as of this encounter Care Teams Systems Test Engineer Relationship Specialty Start Date End Date Jevon Vazquez MD [address] [place] [address] #1 #1 [place] [address] PCP - General 03/23/22 documented as of this encounter
--- OUTSIDE RECORDS SUMMARY | 2024-11-14 09:03 | XMS_ITS | Encounter Summary ---
Author Organization Healthcare Address [address] [place] [address] Care Team Providers Care Haul Cane Brakeman Name Role Phone Jevon Vazquez MD Primary Care Provider [phone] Encounter Details Date Type Department Care Team ([facility] st Contact Info) Description 10/27/2024 Telephone [facility] Hematology/BMT and Cellular Therapy Program [address] [address] Zonia Hoffman, SENIOR FRONT END ENGINEER 800 [facility] [address] [place] [address] Social History Tobacco Use Types Packs/Day Years [...] and her new appts will be on [employer]. She verbalizes understanding. * Telephone Encounter - [...] Hematology/BMT and Cellular Therapy Program [address] [address] 11/28/2024 2:30 PM EDT Office Visit PAV Hematology/BMT and Cellular Therapy Program [address] [address] Zonia Hoffman, SENIOR FRONT END ENGINEER 800 [facility] [address] [place] [address] 11/28/2024 4:00 PM EDT Appointment [facility] 1 [address] [place] [address] 11/29/2024 1:00 PM EDT Appointment [facility] 1 [address] [place] [address] 11/30/2024 1:00 PM EDT Appointment [facility] 1 [address] [place] [address] 12/01/2024 1:00 PM EDT Appointment [facility] 2 [address] [place] [address] 12/02/2024 2:30 PM EDT Appointment [facility] 2 [address] [place] [address] 12/03/2024 2:00 PM EDT Appointment [facility] 1 [address] [place] [address] 12/04/2024 1:00 PM EDT Appointment [facility] Infusion 800 [place] [address] documented as of this encounter Visit Diagnoses Not on filedocumented in this encounter Additional Health Concerns Assessment Noted Time A fall risk assessment has been complete d for the patient 09/30/2024 9:33 AM EDT A Body Mass Index follow-up plan has been documented for the patient 05/28/2024 1:52 PM EST documented as of this encounter Care Teams Haul Cane Brakeman Relationship Specialty Start Date End Date Jevon Vazquez MD [address] [place] [address] #1 #1 [place] [address] PCP - General 03/23/22 documented as of this encounter
--- OUTSIDE RECORDS SUMMARY | 2024-11-14 09:03 | XMS_ITS | Encounter Summary ---
Author Organization Healthcare Address [address] [place] [address] Care Team Providers Care Advanced Solutions Architect Name Role Phone Jevon Vazquez MD Primary Care Provider [phone] Encounter Details Date Type Department Care Team [...] Hematology/BMT and Cellular Therapy Program [address] [address] 11/28/2024 2:30 PM EDT Office Visit [facility] Hematology/BMT and Cellular Therapy Program [address] [address] Zonia Hoffman, SHOEMAKING CUTTER 800 [facility] [address] [place] [address] 11/28/2024 4:00 PM EDT Appointment [facility] 1 [address] [place] [address] 11/29/2024 1:00 PM EDT Appointment [facility] 1 [address] [place] [address] 11/30/2024 1:00 PM EDT Appointment [facility] 1 [address] [place] [address] 12/01/2024 1:00 PM EDT Appointment [facility] 2 [address] [place] [address] 12/02/2024 2:30 PM EDT Appointment [facility] 2 [address] [place] [address] 12/03/2024 2:00 PM EDT Appointment [facility] 1 [address] [place] [address] 12/04/2024 1:00 PM EDT Appointment [facility] Infusion 800 [place] [address] documented as of this encounter Visit Diagnoses Not on filedocumented in this encounter Additional Health Concerns Assessment Noted Time A fall risk assessment has been complete d for the patient 09/30/2024 9:33 AM EDT A Body Mass Index follow-up plan has been documented for the patient 05/28/2024 1:52 PM EST documented as of this encounter Care Teams Advanced Solutions Architect Relationship Specialty Start Date End Date Jevon Vazquez MD [address] [place] [address] #1 #1 [place] [address] PCP - General 03/23/22 documented as of this encounter
--- OUTSIDE RECORDS SUMMARY | 2024-11-14 09:03 | XMS_ITS | Encounter Summary ---
Author Organization Healthcare Address [address] [place] [address] Care Team Providers Care Press Tender Name Role Phone Jevon Vazquez MD Primary Care Provider [phone] Encounter Details Date Type Department Care Team [...] Hematology/BMT and Cellular Therapy Program [address] [address] 11/28/2024 2:30 PM EDT Office Visit [facility] Hematology/BMT and Cellular Therapy Program [address] [address] Zonia Hoffman, LEAD VULCANIZING OPERATOR 800 [facility] [address] [place] [address] 11/28/2024 4:00 PM EDT Appointment [facility] 1 [address] [place] [address] 11/29/2024 1:00 PM EDT Appointment [facility] 1 [address] [place] [address] 11/30/2024 1:00 PM EDT Appointment [facility] 1 [address] [place] [address] 12/01/2024 1:00 PM EDT Appointment [facility] 2 [address] [place] [address] 12/02/2024 2:30 PM EDT Appointment [facility] 2 [address] [place] [address] 12/03/2024 2:00 PM EDT Appointment [facility] 1 [address] [place] [address] 12/04/2024 1:00 PM EDT Appointment [facility] Infusion 800 [place] [address] documented as of this encounter Visit Diagnoses Not on filedocumented in this encounter Additional Health Concerns Assessment Noted Time A fall risk assessment has been complete d for the patient 09/30/2024 9:33 AM EDT A Body Mass Index follow-up plan has been documented for the patient 05/28/2024 1:52 PM EST documented as of this encounter Care Teams Press Tender Relationship Specialty Start Date End Date Jevon Vazquez MD [address] [place] [address] #1 #1 [place] [address] PCP - General 03/23/22 documented as of this encounter
--- OUTSIDE RECORDS SUMMARY | 2024-11-14 09:04 | XMS_ITS | Encounter Summary ---
Author Organization Healthcare Address [address] [place] [address] Care Team Providers Care Key Cutter Name Role Phone Jevon Vazquez MD Primary Care Provider [phone] Encounter Details Date Type Department Care Team [...] Hematology/BMT and Cellular Therapy Program [address] [address] 11/28/2024 2:30 PM EDT Office Visit [facility] Hematology/BMT and Cellular Therapy Program [address] [address] Zonia Hoffman, COOK SEAFOOD 800 [facility] [address] [place] [address] 11/28/2024 4:00 PM EDT Appointment [facility] 1 [address] [place] [address] 11/29/2024 1:00 PM EDT Appointment [facility] 1 [address] [place] [address] 11/30/2024 1:00 PM EDT Appointment [facility] 1 [address] [place] [address] 12/01/2024 1:00 PM EDT Appointment [facility] 2 [address] [place] [address] 12/02/2024 2:30 PM EDT Appointment [facility] 2 [address] [place] [address] 12/03/2024 2:00 PM EDT Appointment [facility] 1 [address] [place] [address] 12/04/2024 1:00 PM EDT Appointment [facility] 800 [place] [address] documented as of this encounter Visit Diagnoses Not on filedocumented in this encounter Additional Health Concerns Assessment Noted Time A fall risk assessment has been complete d for the patient 09/19/2024 8:38 AM EDT A Body Mass Index follow-up plan has been documented for the patient 05/28/2024 1:52 PM EST documented as of this encounter Care Teams Key Cutter Relationship Specialty Start Date End Date Jevon Vazquez MD [address] [place] [address] [address]1 [address]1 [place] [address] PCP - General 03/23/22 documented as of this encounter
--- OUTSIDE RECORDS SUMMARY | 2024-11-14 09:04 | XMS_ITS | Clinical Summary ---
Author Organization [facility] Address [address] [place] [address] Phone Care Team Providers Care Anatomy And Physiology Instructor Name Role Phone Jevon Vazquez MD Primary Care Provider [phone] Allergies Active Allergy Reactions Criticality Noted Date [...] Surgeon: Ivan Bartholomew MD; Location: [facility] MAIN OR; Service: Spine Medical History [...] 5.6 % 11/14/2022 2:57 PM EDT PREFERRED [employer], [employer] Est. Avg Glucose 148 mg/dL 11/14/2022 2:57 PM EDT [employer], [facility] Blood VENOUS BLOOD / Unknown Venipuncture / Unknown 11/11/2022 3:46 PM EDT 11/11/2022 3:55 PM EDT Narrative [facility] - 11/14/2022 2:57 PM [...] Maloney DO CHEMISTRY ORDERABLES Final R esult [facility] [address] [facility] 1 [facility] , [place] [address] * (ABNORMAL) BASIC METABOLIC PANEL (11/11/2022 3:46 PM EDT) Sodium 136 136 - 145 mmol/L 11/11/2022 4:11 PM EDT [facility] Potassium 3.8 3.5 - 5.0 mmol/L 11/11/2022 4:11 PM EDT [facility] Chloride 102 98 - 107 mmol/L 11/11/2022 4:11 PM EDT [facility] Total CO2 24 22 - 29 mmol/L 11/11/2022 4:11 PM EDT [facility] Anion Gap 10 7 - 16 mmol/L 11/11/2022 4:11 PM EDT [facility] Calcium 10.1 8.8 - 10.4 mg/dL 11/11/2022 4:11 PM EDT [facility] Glucose Lvl 147(H) 82 - 100 mg/dL 11/11/2022 4:11 PM EDT [facility] BUN 15 8 - 23 mg/dL 11/11/2022 4:11 PM EDT [facility] Creatinine 0.82 0.51 - 1.30 mg/dL 11/11/2022 4:11 PM EDT [facility] eGFR (CKD-EPIcr 2020) 76 >=60 mL/min/1.7 3 m2 11/11/2022 4:11 PM EDT [facility] Comment:Estimated GFR was ca lculated using the CKD-EPIcr (2020) equation refit without race. The equation is recommended by the National Kidney Foundation - [place] Society of Nephrology Task Force. Blood VENOUS BLOOD / Unknown Venipuncture / Unknown 11/11/2022 3:46 PM EDT 11/11/2022 3:54 PM EDT us Leona Hanna DO CHEMISTRY ORDERABLES Final Res ult [facility] [address] [place] [address] * DX BONE DENSITY AXIAL SKELETON (07/25/2022 9:14 AM EDT) Anatomical Region Laterality Modality Dexa Scan 07/25/2022 Narrative 07/25/2022 3:45 PM EDT Indication: The patient is a female age 65 or older who requires a bone density assessment. Study was performed on Mapiliary 5. Bone Density: Region BMD T-score Z-score [...] Most Recently Relevant to Health Maintenance [place] [address] [place] [address] MEDICARE SUPPLEMENT MEDICARE [place] PART A AND B Member Subscriber Plan / Payer (Ef fective 2016-Present) Name:Ashly Hernández Member ID:[id number] Relation to Subscriber:Self Name:Ashly Hernández Subscriber ID:[id number] Payer ID:Not on file Group ID:Not on file Type:Not on file Address: [address] MEDICARE SUPPLEMENT MEDICARE [place] PART A & [place] [address] [phone] MEDICARE [place] PART A AND B Member Subscriber Plan / Payer (Ef fective 2016-Present) Name:Ashly Hernández Member ID:[id number] Relation to Subscriber:Self Name:Ashly Hernández Subscriber ID:[id number] Payer ID:Not on file Group ID:Not on file Type:Not on file Address: [address] MEDICARE SUPPLEMENT [employer] MEDICARE [place] PART A AND B [address] MEDICARE SUPPLEMENT Advance Directives For more information, please contact: [phone] * Full Code (Latest Code Status on File) Date Activated Date Inactivated Comments 11/14/2022 6:53 PM 11/16/2022 7:37 PM * Full Code Date Activated Date Inactivated Comments 11/12/2022 5:17 AM 11/14/2022 6:47 PM Care Teams Anatomy And Physiology Instructor Relationship Specialty Start Date End Date Jevon Vazquez MD [address] [place] [address] PCP - General Family Medicine 11/10/22
--- OUTSIDE RECORDS SUMMARY | 2024-11-14 09:04 | XMS_ITS | Encounter Summary ---
Author Organization Healthcare Address [address] [place] [address] Care Team Providers Care Travel Nurse Name Role Phone Jevon Vazquez MD Primary Care Provider [phone] Encounter Details Date Type Department Care Team [...] Hematology/BMT and Cellular Therapy Program [address] [address] 11/28/2024 2:30 PM EDT Office Visit [facility] Hematology/BMT and Cellular Therapy Program [address] [address] Zonia Hoffman, FORGING PRESS SETTER UP 800 [facility] [address] [place] [address] 11/28/2024 4:00 PM EDT Appointment [facility] 1 [address] [place] [address] 11/29/2024 1:00 PM EDT Appointment [facility] 1 [address] [place] [address] 11/30/2024 1:00 PM EDT Appointment [facility] 1 [address] [place] [address] 12/01/2024 1:00 PM EDT Appointment [facility] 2 [address] [place] [address] 12/02/2024 2:30 PM EDT Appointment [facility] 2 [address] [place] [address] 12/03/2024 2:00 PM EDT Appointment [facility] 1 [address] [place] [address] 12/04/2024 1:00 PM EDT Appointment [facility] [address] [place] [address] documented as of this encounter Visit Diagnoses Not on filedocumented in this encounter Additional Health Concerns Assessment Noted Time A fall risk assessment has been complete d for the patient 09/30/2024 9:33 AM EDT A Body Mass Index follow-up plan has been documented for the patient 05/28/2024 1:52 PM EST documented as of this encounter Care Teams Travel Nurse Relationship Specialty Start Date End Date Jevon Vazquez MD [address] [place] [address] [address]1 [address]1 [place] [address] PCP - General 03/23/22 documented as of this encounter
--- OUTSIDE RECORDS SUMMARY | 2024-11-14 09:04 | XMS_ITS | Encounter Summary ---
Author Organization Address [address] [place] [address] Care Team Providers Care Toy Assembler Wood Name Role Phone Jevon Vazquez MD Primary Care Provider [phone] Encounter Details Date Type Department Care Team ([facility] Contact Info) Description 11/13/2024 Orders Only [facility] Hematology/BMT and Cellular Therapy Program [address] [address] 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, RN [facility] Acute myeloid [...] Hematology/BMT and Cellular Therapy Program [address] [address] 11/28/2024 2:30 PM EDT Office Visit [facility] Hematology/BMT and Cellular Therapy Program [address] [address] Zonia Hoffman, WINCH DERRICK OPERATOR 800 [facility] [address] [place] [address] 11/28/2024 4:00 PM EDT Appointment [facility] 1 [address] [place] [address] 11/29/2024 1:00 PM EDT Appointment [facility] 1 [address] [place] [address] 11/30/2024 1:00 PM EDT Appointment [facility] 1 [address] [place] [address] 12/01/2024 1:00 PM EDT Appointment [facility] 2 [address] [place] [address] 12/02/2024 2:30 PM EDT Appointment [facility] 2 [address] [place] [address] 12/03/2024 2:00 PM EDT Appointment [facility] 1 [address] [place] [address] 12/04/2024 1:00 PM EDT Appointment [facility] [address] [place] [address] Scheduled Orders Name Type Priority Associated Diagnoses Orde r Schedule CBC and Differential Lab Routine 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
--- OUTSIDE RECORDS SUMMARY | 2024-11-14 09:04 | XMS_ITS | Encounter Summary ---
Author Organization Healthcare Address [address] [place] [address] Care Team Providers Care Environmental Journalist Name Role Phone Jevon Vazquez MD Primary Care Provider [phone] Encounter Details Date Type Department Care Team [...] Hematology/BMT and Cellular Therapy Program [address] [address] 11/28/2024 2:30 PM EDT Office Visit [facility] Hematology/BMT and Cellular Therapy Program [address] [address] Zonia Hoffman, ARCHIVES TECHNICIAN 800 [facility] [address] [place] [address] 11/28/2024 4:00 PM EDT Appointment [facility] 1 [address] [place] [address] 11/29/2024 1:00 PM EDT Appointment [facility] 1 [address] [place] [address] 11/30/2024 1:00 PM EDT Appointment [facility] 1 [address] [place] [address] 12/01/2024 1:00 PM EDT Appointment [facility] 2 [address] [place] [address] 12/02/2024 2:30 PM EDT Appointment [facility] 2 [address] [place] [address] 12/03/2024 2:00 PM EDT Appointment [facility] 1 [address] [place] [address] 12/04/2024 1:00 PM EDT Appointment [facility] [address] [place] [address] documented as of this encounter Visit Diagnoses Not on filedocumented in this encounter Additional Health Concerns Assessment Noted Time A fall risk assessment has been complete d for the patient 09/19/2024 8:38 AM EDT A Body Mass Index follow-up plan has been documented for the patient 05/28/2024 1:52 PM EST documented as of this encounter Care Teams Environmental Journalist Relationship Specialty Start Date End Date Jevon Vazquez MD [address] [place] [address] #1 [address]1 [place] [address] PCP - General 03/23/22 documented as of this encounter
--- OUTSIDE RECORDS SUMMARY | 2024-11-14 09:04 | XMS_ITS | Encounter Summary ---
Author Organization Healthcare Address [address] [place] [address] Care Team Providers Care Health Administrator Name Role Phone Jevon Vazquez MD Primary Care Provider [phone] Encounter Details Date Type Department Care Team (Latest Contact Info) Description 11/12/2024 Travel Social History Tobacco Use Types Packs/Day [...] Hematology/BMT and Cellular Therapy Program [address] [address] 11/28/2024 2:30 PM EDT Office Visit [facility] Hematology/BMT and Cellular Therapy Program [address] [address] Zonia Hoffman, CURER ACID DRUM 800 [facility] [address] [place] [address] 11/28/2024 4:00 PM EDT Appointment [facility] 1 [address] [place] [address] 11/29/2024 1:00 PM EDT Appointment [facility] 1 [address] [place] [address] 11/30/2024 1:00 PM EDT Appointment [facility] 1 [address] [place] [address] 12/01/2024 1:00 PM EDT Appointment [facility] 2 [address] [place] [address] 12/02/2024 2:30 PM EDT Appointment [facility] 2 [address] [place] [address] 12/03/2024 2:00 PM EDT Appointment [facility] 1 [address] [place] [address] 12/04/2024 1:00 PM EDT Appointment [facility] [address] [place] [address] documented as of this encounter Visit Diagnoses Not on filedocumented in this encounter Additional Health Concerns Assessment Noted Time A fall risk assessment has been complete d for the patient 09/30/2024 9:33 AM EDT A Body Mass Index follow-up plan has been documented for the patient 05/28/2024 1:52 PM EST documented as of this encounter Care Teams Health Administrator Relationship Specialty Start Date End Date Jevon Vazquez MD [address] [place] [address] #1 [address]1 [place] [address] PCP - General 03/23/22 documented as of this encounter
--- OUTSIDE RECORDS SUMMARY | 2024-11-14 09:04 | XMS_ITS | Encounter Summary ---
Author Organization Healthcare Address [address] [place] [address] Care Team Providers Care Fruit Press Operator Name Role Phone Jevon Vazquez MD Primary Care Provider [phone] Encounter Details Date Type Department Care Team [...] Hematology/BMT and Cellular Therapy Program [address] [address] 11/28/2024 2:30 PM EDT Office Visit [facility] Hematology/BMT and Cellular Therapy Program [address] [address] Zonia Hoffman, PUBLIC ADMINISTRATION PROFESSOR 800 [facility] [address] [place] [address] 11/28/2024 4:00 PM EDT Appointment [facility] 1 [address] [place] [address] 11/29/2024 1:00 PM EDT Appointment [facility] 1 [address] [place] [address] 11/30/2024 1:00 PM EDT Appointment [facility] 1 [address] [place] [address] 12/01/2024 1:00 PM EDT Appointment [facility] 2 [address] [place] [address] 12/02/2024 2:30 PM EDT Appointment [facility] 2 [address] [place] [address] 12/03/2024 2:00 PM EDT Appointment [facility] 1 [address] [place] [address] 12/04/2024 1:00 PM EDT Appointment [facility] 800 [place] [address] documented as of this encounter Visit Diagnoses Not on filedocumented in this encounter Additional Health Concerns Assessment Noted Time A fall risk assessment has been complete d for the patient 09/30/2024 9:33 AM EDT A Body Mass Index follow-up plan has been documented for the patient 05/28/2024 1:52 PM EST documented as of this encounter Care Teams Fruit Press Operator Relationship Specialty Start Date End Date Jevon Vazquez MD [address] [place] [address] #1 [address]1 [place] [address] PCP - General 03/23/22 documented as of this encounter
--- OUTSIDE RECORDS SUMMARY | 2024-11-14 09:04 | XMS_ITS | Encounter Summary ---
Author Organization Healthcare Address [address] [place] [address] Care Team Providers Care Or Nurse Manager Name Role Phone Jevon Vazquez MD Primary Care Provider [phone] Encounter Details Date Type Department Care Team [...] Cellular Therapy Program [address] [address] 11/28/2024 2:30 PM EDT Office Visit [facility] Hematology/BMT and Cellular Therapy Program [address] [address] Zonia Hoffman, REGISTRATION COORDINATOR 800 [facility] [address] [place] [address] 11/28/2024 4:00 PM EDT Appointment [facility] 1 [address] [place] [address] 11/29/2024 1:00 PM EDT Appointment [facility] 1 [address] [place] [address] 11/30/2024 1:00 PM EDT Appointment [facility] 1 [address] [place] [address] 12/01/2024 1:00 PM EDT Appointment [facility] 2 [address] [place] [address] 12/02/2024 2:30 PM EDT Appointment [facility] 2 [address] [place] [address] 12/03/2024 2:00 PM EDT Appointment [facility] 1 [address] [place] [address] 12/04/2024 1:00 PM EDT Appointment [facility] 800 [place] [address] documented as of this encounter Visit Diagnoses Not on filedocumented in this encounter Additional Health Concerns Assessment Noted Time A fall risk assessment has been complete d for the patient 09/30/2024 9:33 AM EDT A Body Mass Index follow-up plan has been documented for the patient 05/28/2024 1:52 PM EST documented as of this encounter Care Teams Or Nurse Manager Relationship Specialty Start Date End Date Jevon Vazquez MD [address] [place] [address] #1 [address]1 [place] [address] PCP - General 03/23/22 documented as of this encounter
--- OUTSIDE RECORDS SUMMARY | 2024-11-14 09:04 | XMS_ITS | Encounter Summary ---
Author Organization Healthcare Address [address] [place] [address] Care Team Providers Care Slitter And Rewinder Name Role Phone Jevon Vazquez MD Primary Care Provider [phone] Encounter Details Date Type Department Care Team [...] Hematology/BMT and Cellular Therapy Program [address] [address] 11/28/2024 2:30 PM EDT Office Visit [facility] Hematology/BMT and Cellular Therapy Program [address] [address] Zonia Hoffman, MACHINE SANDER 800 [facility] [address] [place] [address] 11/28/2024 4:00 PM EDT Appointment [facility] 1 [address] [place] [address] 11/29/2024 1:00 PM EDT Appointment [facility] 1 [address] [place] [address] 11/30/2024 1:00 PM EDT Appointment [facility] 1 [address] [place] [address] 12/01/2024 1:00 PM EDT Appointment [facility] 2 [address] [place] [address] 12/02/2024 2:30 PM EDT Appointment [facility] 2 [address] [place] [address] 12/03/2024 2:00 PM EDT Appointment [facility] 1 [address] [place] [address] 12/04/2024 1:00 PM EDT Appointment [facility] 800 [place] [address] documented as of this encounter Visit Diagnoses Not on filedocumented in this encounter Additional Health Concerns Assessment Noted Time A fall risk assessment has been complete d for the patient 09/19/2024 8:38 AM EDT A Body Mass Index follow-up plan has been documented for the patient 05/28/2024 1:52 PM EST documented as of this encounter Care Teams Slitter And Rewinder Relationship Specialty Start Date End Date Jevon Vazquez MD [address] [place] [address] #1 [address]1 [place] [address] PCP - General 03/23/22 documented as of this encounter
--- OUTSIDE RECORDS SUMMARY | 2024-11-14 09:04 | XMS_ITS | Encounter Summary ---
Author Organization Healthcare Address [address] [place] [address] Care Team Providers Care Air Hoist Operator Name Role Phone Jevon Vazquez [...] Hematology/BMT and Cellular Therapy Program [address] [address] 11/28/2024 2:30 PM EDT Office Visit [facility] Hematology/BMT and Cellular Therapy Program [address] [address] Zonia Hoffman, ASSISTANT PROFESSOR 800 [facility] [address] [place] [address] 11/28/2024 4:00 PM EDT Appointment [facility] 1 [address] [place] [address] 11/29/2024 1:00 PM EDT Appointment [facility] 1 [address] [place] [address] 11/30/2024 1:00 PM EDT Appointment [facility] 1 [address] [place] [address] 12/01/2024 1:00 PM EDT Appointment [facility] 2 [address] [place] [address] 12/02/2024 2:30 PM EDT Appointment [facility] 2 [address] [place] [address] 12/03/2024 2:00 PM EDT Appointment [facility] 1 [address] [place] [address] 12/04/2024 1:00 PM EDT Appointment [facility] [address] [place] [address] documented as of this encounter Visit Diagnoses Not on filedocumented in this encounter Additional Health Concerns Assessment Noted Time A fall risk assessment has been complete d for the patient 09/19/2024 8:38 AM EDT A Body Mass Index follow-up plan has been documented for the patient 05/28/2024 1:52 PM EST documented as of this encounter Care Teams Air Hoist Operator Relationship Specialty Start Date End Date Jevon Vazquez MD [address] [place] [address] #1 [address] [place] [address] PCP - General 03/23/22 documented as of this encounter
--- OUTSIDE RECORDS SUMMARY | 2024-11-14 09:04 | XMS_ITS | Encounter Summary ---
Author Organization [place] [facility] Address [address] [place] [address] Care Team Providers Care Distance Education Director Name Role Phone Jevon Vazquez MD Primary Care Provider [phone] Encounter Details Date Type Department Care Team ([facility] Contact Info) Description 11/12/2024 Telephone [facility] Hematology/BMT and Cellular Therapy Program [address] [address] Zonia Hoffman, SPRAGGER 800 [facility] [address] [place] [address] Social History Tobacco Use Types Packs/Day Years [...] Telephone Encounter - 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, RN - 11/12/2024 3:15 PM EDT RN called and spoke with pt and discussed treatment plan. She verbalizes understanding. documented in this encounter Plan of Treatment Upcoming Encounters Date Type Department Care Team (Late Contact Info) Description 11/28/2024 2:00 PM EDT Clinical Support [facility] Hematology/BMT and Cellular Therapy Program 750 [facility] [place] [address] 11/28/2024 2:30 PM EDT Office Visit PAV Hematology/BMT and Cellular Therapy Program 750 [facility] [place] [address] Zonia Hoffman, SPRAGGER 800 [facility] [address] [place] [address] 11/28/2024 4:00 PM EDT Appointment [facility] 1 [address] [place] [address] 11/29/2024 1:00 PM EDT Appointment [facility] 1 [address] [place] [address] 11/30/2024 1:00 PM EDT Appointment [facility] 1 [address] [place] [address] 12/01/2024 1:00 PM EDT Appointment [facility] 2 [address] [place] [address] 12/02/2024 2:30 PM EDT Appointment [facility] 2 [address] [place] [address] 12/03/2024 2:00 PM EDT Appointment [facility] 1 [address] [place] [address] 12/04/2024 1:00 PM EDT Appointment [facility] [address] [place] [address] documented as of this encounter Visit Diagnoses Not on filedocumented in this encounter Additional Health Concerns Assessment Noted Time A fall risk assessment has been complete d for the patient 09/30/2024 9:33 AM EDT A Body Mass Index follow-up plan has been documented for the patient 05/28/2024 1:52 PM EST documented as of this encounter Care Teams Distance Education Director Relationship Specialty Start Date End Date Jevon Vazquez MD [address] [place] [address] #1 #1 [place] [address] PCP - General 03/23/22 documented as of this encounter
--- OUTSIDE RECORDS SUMMARY | 2024-11-14 09:04 | XMS_ITS | Encounter Summary ---
Author Organization [facility] Address [address] [place] [address] Care Team Providers Care Prepared Foods Team Leader Name Role Phone Jevon Vazquez MD Primary Care Provider [phone] Encounter Details Date Type Department Care Team ([facility] Contact Info) Description 10/08/2024 Orders Only [facility] Hematology/BMT and Cellular Therapy Program [address] [phone] 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, RN [facility] Acute myeloid leukemia [...] Upcoming Encounters Date Type Department Care Team ([facility] Contact Info) Description 11/28/2024 2:00 PM EDT Clinical Support [facility] Hematology/BMT and Cellular Therapy Program [address] [address] 11/28/2024 2:30 PM EDT Office Visit [facility] Hematology/BMT and Cellular Therapy Program [address] [address] Zonia Hoffman, FULFILLMENT SPECIALIST 800 [facility] [address] [place] [address] 11/28/2024 4:00 PM EDT Appointment [facility] [address] [place] [address] 11/29/2024 1:00 PM EDT Appointment [facility] 1 [address] [place] [address] 11/30/2024 1:00 PM EDT Appointment [facility] 1 [address] [place] [address] 12/01/2024 1:00 PM EDT Appointment [facility] 2 [address] [place] [address] 12/02/2024 2:30 PM EDT Appointment [facility] 2 [address] [place] [address] 12/03/2024 2:00 PM EDT Appointment [facility] 1 [address] [place] [address] 12/04/2024 1:00 PM EDT Appointment [facility] [address] [place] [address] Scheduled Orders Name Type Priority Associated Diagnoses [...] documented as of this encounter Care Teams Prepared Foods Team Leader Relationship Specialty Start Date End Date Jevon Vazquez MD [address] [place] [address] #1 #1 [place] [address] PCP - General 03/23/22 documented as of this encounter
[2024-11-14] MEDS: SODIUM CHLORIDE 0.9% 10ML FLUSH SYRINGE 10 ML IV (09:12)
[2024-11-14 09:24] LABS: Hematocrit 25.6 % (37.0-47.0); Hemoglobin 8.9 g/dL (12.2-16.2); Immature Granulocytes % 0.4 %; Mean Corpuscular HGB Conc 34.8 g/dL (31.8-35.4); Mean Corpuscular Hemoglobin 34.8 pg (27.0-31.2); Mean Corpuscular Volume 100.0 fl (81-99); Nucleated Red Blood Cells % 0 %; Red Blood Count 2.56 M/mm3 (4.20-5.40); White Blood Count 2.5 K/mm3 (4.8-10.8)
[2024-11-14 09:29] LABS: Platelet Count 18 K/mm3 (142-424)
[2024-11-14 09:30] LABS: Albumin Level 2.9 g/dl (3.5-5.0); Chloride 104 mmol/L (98-107); Sodium 134 mmol/L (136-145)
[2024-11-14 09:31] LABS: Potassium 3.8 mmoL/L (3.5-5.1)
[2024-11-14 09:33] LABS: Alanine Aminotransferase 12 U/L (12-78); Anion Gap 7.8 mEq/L (5-15); Aspartate Amino Transferase 31 U/L (14-36); Blood Urea Nitrogen 27 mg/dl (7-17); Carbon Dioxide 26 mmol/L (22.0-30.0); Creatinine Clearance Estimated 45 mL/min (50-200); Creatinine,Serum 1.00 mg/dl (0.52-1.04); Estimated Glomerular Filt Rate 54 ml/min (>60); GFR (African American) 66 ML/MIN (>60)
[2024-11-14 09:34] LABS: Albumin/Globulin Ratio 1.0 (1.1-1.8); Alkaline Phosphatase 46 U/L (38-126); Bilirubin,Total 0.2 mg/dl (0.2-1.3); Calcium 9.5 mg/dl (8.4-10.2); Globulin 2.9 g/dL (1.3-3.2); Glucose 123 mg/dl (74-100); Total Protein,Serum 5.8 g/dl (6.3-8.2)
== END 2024-11-14 09:40 | disposition home or self-care (01) ==
LOC: INF 09:00
PROVIDERS: PCP Family Medicine; Visit Provider Internal Medicine Medical Oncology
DX: C92.00 Acute myeloblastic leukemia, not having achieved remission (principal)
CPT/HCPCS: 36591; 80053; 85025; J1642

== ENCOUNTER 2024-11-17 08:54 | Outpatient (CLI) | payer MEDICARE, BC, SELFPAY ==
--- OUTSIDE RECORDS SUMMARY | 2024-09-19 07:30 | XMS_ITS | Encounter Summary ---
Author Organization [facility] Address [address] [place] [address] Care Team Providers Care Manager Of Radiology Name Role Phone Jevon Vazquez MD Primary Care Provider [phone] Reason for Visit * Reason Comments Nurse Visit Encounter Details Date Type Department Care Team ([facility] Contact Info) Description 09/19/2024 7:30 AM EDT Clinical Support [facility] Hematology/BMT and Cellular Therapy Program [address] [phone] Social History Tobacco Use Types Packs/Day Years [...] Upcoming Encounters Date Type Department Care Team ([facility] Contact Info) Description 11/28/2024 2:00 PM EDT Clinical Support [facility]/BMT [facility] Cellular Therapy Program [address] [phone] 11/28/2024 2:30 PM EDT Office Visit [facility] Cellular Therapy [facility] [address] [phone] Zonia Hoffman, CUSTOMER OPERATIONS SPECIALIST 800 [facility] [address] [place] [address] 11/28/2024 4:00 PM EDT Appointment [facility] 1 [address] [place] [address] 11/29/2024 1:00 PM EDT Appointment [facility] 1 [address] [place] [address] 11/30/2024 1:00 PM EDT Appointment [facility] 1 [address] [place] [address] 12/01/2024 1:00 PM EDT Appointment [facility] 2 [address] [place] [address] 12/02/2024 2:30 PM EDT Appointment [facility] 2 [address] [place] [address] 12/03/2024 2:00 PM EDT Appointment [facility] 1 [address] [place] [address] 12/04/2024 1:00 PM EDT Appointment [facility] [address] [place] [address] documented as of this encounter Visit Diagnoses Not on filedocumented in this encounter Additional Health Concerns Assessment Noted Time A fall risk assessment has been complete d for the patient 09/19/2024 8:38 AM EDT A Body Mass Index follow-up plan has been documented for the patient 05/28/2024 1:52 PM EST documented as of this encounter Care Teams Manager Of Radiology Relationship Specialty Start Date End Date Jevon Vazquez MD [address] [place] [address] #1 [address]1 [place] [address] PCP - General 03/23/22 documented as of this encounter
--- OUTSIDE RECORDS SUMMARY | 2024-09-19 09:30 | XMS_ITS | Encounter Summary ---
Author Organization Healthcare Address [address] [place] [address] Care Team Providers Care Printing Supplies Sales Representative Name Role Phone Jevon Vazquez MD Primary Care Provider [phone] Reason for Visit * Reason Comments Follow-up Encounter Details Date Type Department Care Team (Latest Contact Info) Description 09/19/2024 9:30 AM EDT Clinical Support [facility] [address] [place] [address] Acute myeloid leukemia not having achieved remission [...] Description 11/28/2024 2:00 PM EDT Clinical Support [facility] Hematology/BMT and Cellular Therapy Program [address] [phone] 11/28/2024 2:30 PM EDT Office Visit [facility] Hematology/BMT and Cellular Therapy Program [address] [phone] Zonia Hoffman, SURGERY SPECIALIST [address] [facility] [address] [place] [phone] 11/28/2024 4:00 PM EDT Appointment [facility] Infusion Clinic [address] [place] [address] 11/29/2024 1:00 PM EDT Appointment [facility] [address] [place] [address] 11/30/2024 1:00 PM EDT Appointment [facility] [address] [place] [address] 12/01/2024 1:00 PM EDT Appointment [facility] [address] [place] [address] 12/02/2024 2:30 PM EDT Appointment [facility] [address] [place] [address] 12/03/2024 2:00 PM EDT Appointment [facility] [address] [place] [address] 12/04/2024 1:00 PM EDT Appointment [facility] [address] [place] [address] documented as of this encounter Procedures Procedure Name Priority Date/Time Associated Diagnosis Comments PLATELET COUNT, BLOOD STAT 09/19/2024 10:04 AM EDT PREPARE PLATELETS Routine 09/19/2024 9:0 8 AM EDT documented in this encounter Results * (ABNORMAL) Platelet count (09/19/2024 10:04 AM EDT) Platelet Count 61(L) 155 - 369 10*3/uL LAB HEMATOLOGY METHOD 09/19/2024 10:19 AM EDT [facility] Blood Blood sample taken from central line / Unknown (Port) Long-term Catheter / Unknown 09/19/2024 10:04 AM EDT 09/19/2024 10:18 AM EDT us New Mckinney MD LAB BLOOD ORDERABLES Final Re sult [facility] [address] [place] [address] * Transfuse platelets, Irradiated (09/19/2024 10:02 AM EDT) us Lexi Ferraro APRN BLOOD TRANSFUSION ORDERABL ES Final Result * Prepare Leukocyte Reduced Platelets (09/19/2024 9:08 AM EDT) Product Code [id number] CH BLOO D BANK Dispense Status Transfused BLOOD BANK Blood Expiration Date [id number] BLOOD BANK Unit Number [id number] CH B LOOD BANK Product Blood Type 6200 BLOOD BANK Blood Type A+ BLOOD BANK us Provider Not In System BLOOD BANK PRODUCT ORD ERABLES Final Result Performing Organization Address City/State/[facility] Co de Phone Number BLOOD BANK [address] [place] [address], documented in this encounter Visit Diagnoses Diagnosis [...] documented as of this encounter Care Teams Printing Supplies Sales Representative Relationship Specialty Start Date End Date Jevon Vazquez MD [address] [place] [address] #1 #1 [place] [id number] PCP - General 03/23/22 documented as of this encounter
--- OUTSIDE RECORDS SUMMARY | 2024-09-19 12:00 | XMS_ITS | Encounter Summary ---
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) Procedures Leukemia/Lymphoma - Immunophenotyping by Flow Cytometry New Mckinney MD 800 [facility] Cancer [address] [address] Phone: tel: fax: Referral ID Status Reason Start Date Expiration Date V isits Requested Visits Authorized [id number] Authorized 09/11/2024 03/13/2026 1 1 Encounter Details Date Type Department Care Team (Latest Contact Info) Description 09/19/2024 12:00 PM EDT Procedure Visit [facility] Hematology/BMT and Cellular Therapy Program [address] [address] Lexi Ferraro, RODDY 800 [facility] Cancer [address] [address] Acute myeloid leukemia not having [...] to surronding structures. Alternatives discussed: Delayed treatment [place] protocol: Procedure explained and questions answered to [...] Upcoming Encounters Date Type Department Care Team ([facility] st Contact Info) Description 11/28/2024 2:00 PM EDT Clinical Support [facility] Hematology/BMT and Cellular Therapy Program [address] [address] 11/28/2024 2:30 PM EDT Office Visit [facility] Hematology/BMT and Cellular Therapy Program [address] [phone] Zonia Hoffman APRN 800 [facility]tr [address] [place] [phone] 11/28/2024 4:00 PM EDT Appointment [facility] Infusion Clinic [address] [place] [address] 11/29/2024 1:00 PM EDT Appointment [facility] Infusion Clinic [address] [place] [address] 11/30/2024 1:00 PM EDT Appointment [facility] Infusion Clinic [address] [place] [address] 12/01/2024 1:00 PM EDT Appointment [facility] [address] [place] [address] 12/02/2024 2:30 PM EDT Appointment [facility] [address] [place] [address] 12/03/2024 2:00 PM EDT Appointment [facility] 1 [address] [place] [address] 12/04/2024 1:00 PM EDT Appointment [facility] Infusion [address] [place] [address] documented as of this encounter Procedures Procedure [...] to surronding structures. Alternatives discussed: Delayed treatment [place] protocol: Procedure explained and questions answered to [...] [facility] Specimen Adequacy Adequate 025 2:37 PM EDT [facility] Chromosome Analysis Result Giemsa-banded metaphase [...] Band resolution: 450-525 09/24/2024 2:37 PM EDT [facility] Pathologist Signature Reviewed by: Corey Tejada 09/24/2024 2:37 PM EDT [facility] Bone Marrow Non-blood Collection / Unknown 09/19/2024 7:29 AM EDT 09/19/2024 12:35 PM EDT us New Mckinney MD LAB CYTOGENETICS ORDERABLES F inal Result [facility] [address] [place] [address] * Myeloid Focused Panel, 50 gene (09/19/2024 7:29 AM EDT) Interpretation The following two (2) genes, TP53 and DNMT3A, with persistent variants have been detected in this bone marrow specimen. The variant, p.[id number], in TP53 gene and the variant, p.Dew958lhe, in the RUNX 1 gene are not detectable at current cutoff and coverage established in this lab. Gene: TP53 Mutation: c.814G>A; p.Qch307Bcq Allele Frequency (%): 37% (45% Dec 2023) ID: [id number] Gene: DNMT3A Mutation: c.1522delC; p.[id number] 3 Allele Frequency (%): 36% (48% Dec 2023) Additional Details on Mutation Identified: Gene Transcript Genome Chrom Coordinate RefVar DNMT3A NM_[id number] Hg19 2 [id number] delC TP53 NM_000546.5 Hg19 17 [id number] G>A 09/29/2024 4:05 PM EDT [facility] Methodology The following 50 genes [...] then sequenced on the Illumina NextSeq 2000 ([employer], [place]). A custom bioinformatics pipeline aligns [...] of hematologic malignancies. 09/29/2024 4:05 PM EDT [facility] Disclaimer This test was developed [...] clinical laboratory testing. 09/29/2024 4:05 PM EDT [facility] Pathologist Signature Reviewed by: Corey Tejada 09/29/2024 4:05 PM EDT [facility] Bone Marrow Specimen from bone marrow obtained by aspiration / Unknown Non-blood Collection / Unknown 09/19/2024 7:29 AM EDT 09/19/2024 12:03 PM EDT us New Mckinney MD LAB MOLECULAR DIAGNOSTICS ORD ERABLES Final Result [facility] [place] [address], * Leukemia/Lymphoma - Immunophenotyping by Flow Cytometry (09/19/2024 7:29 AM EDT) Clinical Indication AML 09/22/2024 10:29 AM EDT [facility] Flow Cytometry Interpretation A. BONE MARROW FOR FLOW CYTOMETRY: - MIXED MARROW ELEMENTS WITH NO EVIDENCE OF INCREASED BLASTS OR ABNORMAL LYMPHOID POPULATIONS, SEE COMMENT. 09/22/2024 10:29 AM EDT [facility] Comments CD45/side scatter analysis shows [...] surface light chains 09/22/2024 10:29 AM EDT [facility] Disclaimer This test was developed [...] Final Result [facility] [address] [place] [address] * (ABNORMAL) CBC and differential (09/19/2024 7:29 AM EDT) WBC Count 2.70(L) 3.70 - 10.30 10*3/uL LAB HEMATOLOGY METHOD 09/19/2024 9:13 AM EDT [facility] RBC Count 1.86(L) 3.90 - 5.20 10*6/uL LAB HEMATOLOGY METHOD 09/19/2024 9:13 AM EDT [facility] HGB 7.1(L) 11.2 - 15.7 g/dL LAB HEMATOLOGY METHOD 09/19/2024 9:13 AM EDT [facility] HCT 21.5(L) 34.0 - 45.0 % LAB HEMATOLOGY METHOD 09/19/2024 9:13 AM EDT [facility] Platelet Count 14(LL) 155 - 369 10*3/uL LAB HEMATOLOGY METHOD 09/19/2024 9:13 AM EDT [facility] MCV 116(H) 79 - 98 fL LAB HEMATOLOGY METHOD 09/19/2024 9:13 AM EDT [facility] MCH 38.2(H) 26.0 - 32.0 pg LAB HEMATOLOGY METHOD 09/19/2024 9:13 AM EDT [facility] MCHC 33.0 30.7 - 35.5 g/dL LAB HEMATOLOGY METHOD 09/19/2024 9:13 AM EDT [facility] RDW 21.8(H) 11.5 - 14.5 % LAB HEMATOLOGY METHOD 09/19/2024 9:13 AM EDT [facility] MPV 13.5(H) 8.8 - 12.5 fL LAB HEMATOLOGY METHOD 09/19/2024 9:13 AM EDT [facility] nRBC 0.0 <=0.0 per 100 WBCs LAB HEMATOLOGY METHOD 09/19/2024 9:13 AM EDT [facility] Differential Type Automated LAB HEMATOLOGY METHOD 09/19/2024 9:13 AM EDT [facility] Neutrophils % 51 % LAB HEMATOLOGY METHOD 09/19/2024 9:13 AM EDT [facility] Lymphocytes % 41 % LAB HEMATOLOGY METHOD 09/19/2024 9:13 AM EDT [facility] Monocytes % 7 % LAB HEMATOLOGY METHOD 09/19/2024 9:13 AM EDT [facility] Eosinophils % 1 % LAB HEMATOLOGY METHOD 09/19/2024 9:13 AM EDT [facility] Basophils % 0 % LAB HEMATOLOGY METHOD 09/19/2024 9:13 AM EDT [facility] Immature Granulocytes % 0 % LAB HEMATOLOGY METHOD 09/19/2024 9:13 AM EDT [facility] Neutrophils Absolute 1.35(L) 1.60 - 6.10 10*3/uL LAB HEMATOLOGY METHOD 09/19/2024 9:13 AM EDT [facility] Lymphocytes Absolute 1.10(L) 1.20 - 3.90 10*3/uL LAB HEMATOLOGY METHOD 09/19/2024 9:13 AM EDT [facility] Monocytes Absolute 0.20(L) 0.30 - 0.90 10*3/uL LAB HEMATOLOGY METHOD 09/19/2024 9:13 AM EDT [facility] Eosinophils Absolute 0.03 0.00 - 0.50 10*3/uL LAB HEMATOLOGY METHOD 09/19/2024 9:13 AM EDT [facility] Basophils Absolute 0.01 0.00 - 0.10 10*3/uL LAB HEMATOLOGY METHOD 09/19/2024 9:13 AM EDT [facility] Immature Granulocytes Absolute 0.01 0.00 - 0.06 10*3/uL LAB HEMATOLOGY METHOD 09/19/2024 9:13 AM EDT [facility] Blood Blood sample taken from central line / Unknown (Port) Long-term Catheter / Unknown 09/19/2024 7:29 AM EDT 09/19/2024 8:08 AM EDT Narrative [facility] - 09/19/2024 9:13 AM EDT Therapeutic decision making should be based on absolute values, rather than percentages. New Mckinney MD LAB BLOOD ORDERABLES Final Re sult [facility] [address] [place] [address] * Bone marrow exam (09/19/2024 7:29 AM EDT) Case Report Bone Marrow Case: [id number] Authorizing Provider: New Mckinney MD Collected: 09/19/2024 0729 Ordering Location: [facility] Hematology/BMT and Received: 09/19/2024 1216 [...] in this bone marrow specimen. The variant, p.Ony296Phh, in TP53 gene and the variant, p.Vfw435atv, in the RUNX 1 gene are not detectable at current cutoff and coverage established in this lab. Gene: TP53 Mutation: c.814G>A; p.Yen649Ujv Allele Frequency (%): 37% (45% Dec 2023) ID: [id number] Gene: DNMT3A Mutation: c.1522delC; p.Dpm206UfjtbXhk6 43 Allele Frequency (%): 36% (48% Dec [...] Information AML 09/14 5 3:15 PM EDT [facility] [...] the [facility] Clinical Laboratory, [address] [place] [address]. All tests reported here, except those addressing [...] OF INCREASED BLASTS OR ABNORMAL LYMPHOID POPULATIONS ([id number]). 3:15 PM EDT [facility] CYTOGENETICS/MOLECULA R INTERPRETATION Correlation with cytogenetic/molec ular analysis is suggested. 3:15 PM EDT [facility] Gross Description B. [...] the diagnosis or interpretation. 3:15 PM EDT [facility] Bone Marrow Peripheral [...] PATHOLOGY ORDERABLES Edit ed Result - Final [facility] [address] [place] [address] documented in this encounter Visit Diagnoses Diagnosis [...] as of this encounter Care Teams Director Data Relationship Specialty Start Date End Date Jevon Vazquez MD [address] [place] [address] #1 #1 [place]P [place] [address] PCP - General 03/23/22 documented as of this encounter
--- OUTSIDE RECORDS SUMMARY | 2024-09-30 09:00 | XMS_ITS | Encounter Summary ---
Author Organization Healthcare Address [address] [place] [address] Care Team Providers Care Last Model Maker Name Role Phone Jevon Vazquez MD Primary Care Provider [phone] Reason for Visit * Reason Comments Labs Only Encounter Details Date Type Department Care Team ([facility] Contact Info) Description 09/30/2024 9:00 AM EDT Clinical Support [facility] Hematology/BMT and Cellular Therapy Program [address] [phone] Jyoti Kemp Acute myeloid leukemia not having [facility] Description 11/28/2024 2:00 PM EDT Clinical Support [facility] Hematology/BMT and Cellular Therapy Program [address] [phone] 11/28/2024 2:30 PM EDT Office Visit [facility] Hematology/BMT and Cellular Therapy Program [address] [phone] Zonia Hoffman, OUTBOARD MOTORBOAT RIGGER 800 [facility] [address] [place] [phone] 11/28/2024 4:00 PM EDT Appointment [facility] [address] [place] [address] 11/29/2024 1:00 PM EDT Appointment [facility] 1 [address] [place] [address] 11/30/2024 1:00 PM EDT Appointment [facility] 1 [address] [place] [address] 12/01/2024 1:00 PM EDT Appointment [facility] 2 [address] [place] [address] 12/02/2024 2:30 PM EDT Appointment [facility] 2 [address] [place] [address] 12/03/2024 2:00 PM EDT Appointment [facility] 1 [address] [place] [address] 12/04/2024 1:00 PM EDT Appointment [facility]fusion [address] [place] [address] documented as of this encounter Procedures Procedure [...] - 99 mg/dL 09/30/2024 10:20 AM EDT [facility] BUN, Plasma 21 8 - 23 mg/dL 09/30/2024 10:20 AM EDT [facility] Creatinine, Plasma 1.00 0.60 - 1.10 mg/dL 09/30/2024 10:20 AM EDT [facility] BUN/Creatinine Ratio 21 09/30/2024 10:20 AM EDT [facility] Sodium, Plasma 137 136 - 145 mmol/L 09/30/2024 10:20 AM EDT [facility] Potassium, Plasma 3.8 3.6 - 4.9 mmol/L 09/30/2024 10:20 AM EDT [facility] Chloride, Plasma 107 97 - 107 mmol/L 09/30/2024 10:20 AM EDT [facility] CO2, Plasma 22 22 - 29 mmol/L 09/30/2024 10:20 AM EDT [facility] Anion Gap 8 6 - 16 mmol/L 09/30/2024 10:20 AM EDT [facility] Total Calcium, Plasma 9.8 8.9 - 10.2 mg/dL 09/30/2024 10:20 AM EDT [facility] Total Protein 5.9(L) 6.3 - 7.9 g/dL 09/30/2024 10:20 AM EDT [facility] Albumin, Plasma 3.8 3.5 - 5.2 g/dL 09/30/2024 10:20 AM EDT [facility] AST, Plasma 28 10 - 35 U/L 09/30/2024 10:20 AM EDT [facility] ALT, Plasma 14 10 - 35 U/L 09/30/2024 10:20 AM EDT [facility] Alkaline Phosphatase, Plasma 34(L) 46 - 142 U/L 09/30/2024 10:20 AM EDT [facility] Total Bilirubin, Plasma 0.3 0.2 - 1.1 mg/dL 09/30/2024 10:20 AM EDT [facility] eGFRcr 59.6 mL/min/1.7 3m*2 09/30/2024 10:20 AM EDT [facility] Comment:Reported eGFRcr in m L/min/1.73m2 is based the CKD-EPI 2020 equation that does not use a race coefficient. Blood Venous blood specimen / Unknown (Port) Long-term Catheter / Unknown 09/30/2024 9:11 AM EDT 09/30/2024 9:50 AM EDT us Zonia Hoffman OUTBOARD MOTORBOAT RIGGER LAB BLOOD ORDERABLES Final Res ult [facility] [address] [place] [address] * (ABNORMAL) CBC and Differential (09/30/2024 9:11 AM EDT) WBC Count 3.34(L) 3.70 - 10.30 10*3/uL LAB HEMATOLOGY METHOD 09/30/2024 11:07 AM EDT [facility] RBC Count 1.91(L) 3.90 - 5.20 10*6/uL LAB HEMATOLOGY METHOD 09/30/2024 11:07 AM EDT [facility] HGB 7.7(L) 11.2 - 15.7 g/dL LAB HEMATOLOGY METHOD 09/30/2024 11:07 AM EDT [facility] HCT 22.8(L) 34.0 - 45.0 % LAB HEMATOLOGY METHOD 09/30/2024 11:07 AM EDT [facility] Platelet Count 17(LL) 155 - 369 10*3/uL LAB HEMATOLOGY METHOD 09/30/2024 11:07 AM EDT [facility] MCV 119(H) 79 - 98 fL LAB HEMATOLOGY METHOD 09/30/2024 11:07 AM EDT [facility] MCH 40.3(H) 26.0 - 32.0 pg LAB HEMATOLOGY METHOD 09/30/2024 11:07 AM EDT [facility] MCHC 33.8 30.7 - 35.5 g/dL LAB HEMATOLOGY METHOD 09/30/2024 11:07 AM EDT [facility] RDW 18.7(H) 11.5 - 14.5 % LAB HEMATOLOGY METHOD 09/30/2024 11:07 AM EDT [facility] MPV 11.1 8.8 - 12.5 fL LAB HEMATOLOGY METHOD 09/30/2024 11:07 AM EDT [facility] nRBC 0.0 <=0.0 per 100 WBCs LAB HEMATOLOGY METHOD 09/30/2024 11:07 AM EDT [facility] Differential Type Automated LAB HEMATOLOGY METHOD 09/30/2024 11:07 AM EDT [facility] Neutrophils % 65 % LAB HEMATOLOGY METHOD 09/30/2024 11:07 AM EDT [facility] Lymphocytes % 26 % LAB HEMATOLOGY METHOD 09/30/2024 11:07 AM EDT [facility] Monocytes % 7 % LAB HEMATOLOGY METHOD 09/30/2024 11:07 AM EDT [facility] Eosinophils % 1 % LAB HEMATOLOGY METHOD 09/30/2024 11:07 AM EDT [facility] Basophils % 1 % LAB HEMATOLOGY METHOD 09/30/2024 11:07 AM EDT [facility] Immature Granulocytes % 0 % LAB HEMATOLOGY METHOD 09/30/2024 11:07 AM EDT [facility] Neutrophils Absolute 2.17 1.60 - 6.10 10*3/uL LAB HEMATOLOGY METHOD 09/30/2024 11:07 AM EDT [facility] Lymphocytes Absolute 0.87(L) 1.20 - 3.90 10*3/uL LAB HEMATOLOGY METHOD 09/30/2024 11:07 AM EDT [facility] Monocytes Absolute 0.24(L) 0.30 - 0.90 10*3/uL LAB HEMATOLOGY METHOD 09/30/2024 11:07 AM EDT [facility] Eosinophils Absolute 0.03 0.00 - 0.50 10*3/uL LAB HEMATOLOGY METHOD 09/30/2024 11:07 AM EDT [facility] Basophils Absolute 0.02 0.00 - 0.10 10*3/uL LAB HEMATOLOGY METHOD 09/30/2024 11:07 AM EDT [facility] Immature Granulocytes Absolute 0.01 0.00 - 0.06 10*3/uL LAB HEMATOLOGY METHOD 09/30/2024 11:07 AM EDT [facility] Blood Venous blood specimen / Unknown (Port) Long-term Catheter / Unknown 09/30/2024 9:11 AM EDT 09/30/2024 9:34 AM EDT [facility] - 09/30/2024 11:07 AM EDT Therapeutic decision making should be based on absolute values, rather than percentages. 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
--- OUTSIDE RECORDS SUMMARY | 2024-09-30 09:30 | XMS_ITS | Encounter Summary ---
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 female. Referring Physician: Zonia Hoffman, RACE RELATIONS PROFESSOR 800 [facility] [address] [address] Primary Care Provider: Jevon Vazquez MD Chief [...] interphase cells examined show a deletion of L6U633. Next generation sequencing: Abnormal: TP53 (c.814G>A; p.[id number]) frequency 45%, DMNT3A (c.1522delC; p.[id number]) frequency 48%, RUNX1 (c.336_338delGCC; p.[id number]) frequency 35% Azacitidine + Venetoclax Cycle 1: [...] charts, reviewing results, and documenting. RODDY Cristina [facility] HEMATOLOGY/BMT AND CELLULAR THERAPY PROGRAM 800 [facility] [phone] 40 minutes was spent on this encounter; [...] [facility] st Contact Info) Description 11/28/2024 2:00 PM EDT Clinical Support [facility] Hematology/BMT and Cellular Therapy Program 750 [facility], [address] [place] [address] [place] [address] 11/28/2024 2:30 PM EDT Office Visit [facility] Hematology/BMT and Cellular Therapy Program [address] [place] [address] Zonia Hoffman, RACE RELATIONS PROFESSOR [address] [facility] [address] [place] [phone] 11/28/2024 4:00 PM EDT Appointment [facility] 1 [address] [place] [address] 11/29/2024 1:00 PM EDT Appointment [facility] 1 [address] [place] [address] 11/30/2024 1:00 PM EDT Appointment [facility] 1 [address] [place] [address] 12/01/2024 1:00 PM EDT Appointment [facility] 2 [address] [place] [address] 12/02/2024 2:30 PM EDT Appointment [facility] 2 [address] [place] [address] 12/03/2024 2:00 PM EDT Appointment [facility] 1 [address] [place] [address] 12/04/2024 1:00 PM EDT Appointment [facility] 800 [place] [address] documented as of this encounter Results * (ABNORMAL) Comprehensive Metabolic Panel, Plasma (09/30/2024 9:11 AM EDT) [facility] Glucose, Plasma 135(H) 74 - 99 mg/dL 09/30/2024 10:20 AM EDT [facility] BUN, Plasma 21 8 - 23 mg/dL 09/30/2024 10:20 AM EDT [facility] Creatinine, Plasma 1.00 0.60 - 1.10 mg/dL 09/30/2024 10:20 AM EDT [facility] BUN/Creatinine Ratio 21 09/30/2024 10:20 AM EDT [facility] Sodium, Plasma 137 136 - 145 mmol/L 09/30/2024 10:20 AM EDT [facility] Potassium, Plasma 3.8 3.6 - 4.9 mmol/L 09/30/2024 10:20 AM EDT [facility] Chloride, Plasma 107 97 - 107 mmol/L 09/30/2024 10:20 AM EDT [facility] CO2, Plasma 22 22 - 29 mmol/L 09/30/2024 10:20 AM EDT [facility] Anion Gap 8 6 - 16 mmol/L 09/30/2024 10:20 AM EDT [facility] Total Calcium, Plasma 9.8 8.9 - 10.2 mg/dL 09/30/2024 10:20 AM EDT [facility] Total Protein 5.9(L) 6.3 - 7.9 g/dL 09/30/2024 10:20 AM EDT [facility] Albumin, Plasma 3.8 3.5 - 5.2 g/dL 09/30/2024 10:20 AM EDT [facility] AST, Plasma 28 10 - 35 U/L 09/30/2024 10:20 AM EDT [facility] ALT, Plasma 14 10 - 35 U/L 09/30/2024 10:20 AM EDT [facility] Alkaline Phosphatase, Plasma 34(L) 46 - 142 U/L 09/30/2024 10:20 AM EDT [facility] Total Bilirubin, Plasma 0.3 0.2 - 1.1 mg/dL 09/30/2024 10:20 AM EDT [facility] eGFRcr 59.6 mL/min/1.7 3m*2 09/30/2024 10:20 AM EDT [facility] Comment:Reported eGFRcr in m L/min/1.73m2 is based the CKD-EPI 2020 equation that does not use a race coefficient. Blood Venous blood specimen / Unknown (Port) Long-term Catheter / Unknown 09/30/2024 9:11 AM EDT 09/30/2024 9:50 AM EDT us Zonia Hoffman APRN LAB BLOOD ORDERABLES Final Res ult [facility] 800 [facility] [place] [address] * (ABNORMAL) CBC and Differential (09/30/2024 9:11 AM EDT) WBC Count 3.34(L) 3.70 - 10.30 10*3/uL LAB HEMATOLOGY METHOD 09/30/2024 11:07 AM EDT [facility] RBC Count 1.91(L) 3.90 - 5.20 10*6/uL LAB HEMATOLOGY METHOD 09/30/2024 11:07 AM EDT [facility] HGB 7.7(L) 11.2 - 15.7 g/dL LAB HEMATOLOGY METHOD 09/30/2024 11:07 AM EDT [facility] HCT 22.8(L) 34.0 - 45.0 % LAB HEMATOLOGY METHOD 09/30/2024 11:07 AM EDT [facility] Platelet Count 17(LL) 155 - 369 10*3/uL LAB HEMATOLOGY METHOD 09/30/2024 11:07 AM EDT [facility] MCV 119(H) 79 - 98 fL LAB HEMATOLOGY METHOD 09/30/2024 11:07 AM EDT [facility] MCH 40.3(H) 26.0 - 32.0 pg LAB HEMATOLOGY METHOD 09/30/2024 11:07 AM EDT [facility] MCHC 33.8 30.7 - 35.5 g/dL LAB HEMATOLOGY METHOD 09/30/2024 11:07 AM EDT [facility] RDW 18.7(H) 11.5 - 14.5 % LAB HEMATOLOGY METHOD 09/30/2024 11:07 AM EDT [facility] MPV 11.1 8.8 - 12.5 fL LAB HEMATOLOGY METHOD 09/30/2024 11:07 AM EDT [facility] nRBC 0.0 <=0.0 per 100 WBCs LAB HEMATOLOGY METHOD 09/30/2024 11:07 AM EDT [facility] Differential Type Automated LAB HEMATOLOGY METHOD 09/30/2024 11:07 AM EDT [facility] Neutrophils % 65 % LAB HEMATOLOGY METHOD 09/30/2024 11:07 AM EDT [facility] Lymphocytes % 26 % LAB HEMATOLOGY METHOD 09/30/2024 11:07 AM EDT [facility] Monocytes % 7 % LAB HEMATOLOGY METHOD 09/30/2024 11:07 AM EDT [facility] Eosinophils % 1 % LAB HEMATOLOGY METHOD 09/30/2024 11:07 AM EDT [facility] Basophils % 1 % LAB HEMATOLOGY METHOD 09/30/2024 11:07 AM EDT [facility] Immature Granulocytes % 0 % LAB HEMATOLOGY METHOD 09/30/2024 11:07 AM EDT [facility] Neutrophils Absolute 2.17 1.60 - 6.10 10*3/uL LAB HEMATOLOGY METHOD 09/30/2024 11:07 AM EDT [facility] Lymphocytes Absolute 0.87(L) 1.20 - 3.90 10*3/uL LAB HEMATOLOGY METHOD 09/30/2024 11:07 AM EDT [facility] Monocytes Absolute 0.24(L) 0.30 - 0.90 10*3/uL LAB HEMATOLOGY METHOD 09/30/2024 11:07 AM EDT [facility] Eosinophils Absolute 0.03 0.00 - 0.50 10*3/uL LAB HEMATOLOGY METHOD 09/30/2024 11:07 AM EDT [facility] Basophils Absolute 0.02 0.00 - 0.10 10*3/uL LAB HEMATOLOGY METHOD 09/30/2024 11:07 AM EDT [facility] Immature Granulocytes Absolute 0.01 0.00 - 0.06 10*3/uL LAB HEMATOLOGY METHOD 09/30/2024 11:07 AM EDT [facility] Blood Venous blood specimen / Unknown (Port) Long-term Catheter / Unknown 09/30/2024 9:11 AM EDT 09/30/2024 9:34 AM EDT Narrative [facility] - 09/30/2024 11:07 AM EDT Therapeutic decision making should be based on absolute values, rather than percentages. us Zonia Hoffman APRN LAB BLOOD ORDERABLES Final Res ult [facility] [address] [place] [address] documented in this encounter Visit Diagnoses Diagnosis [...] documented as of this encounter Care Teams Tool Setter Relationship Specialty Start Date End Date Jevon Vazquez MD [address] [place] [address] #1 #1 JOSEP [place] [id number] PCP - General 03/23/22 documented as of this encounter
[2024-11-17 08:55] VITALS: BMI 21.8
--- OUTSIDE RECORDS SUMMARY | 2024-11-17 08:59 | XMS_ITS | Encounter Summary ---
Author Organization [facility] Address [address] [place] [address] Care Team Providers Care Boiler Cleaner Name Role Phone Jevon Vazquez MD Primary Care Provider Encounter Details Date Type Department Care Team ([facility] Contact Info) Description 10/29/2024 Refill [facility] Hematology/BMT and Cellular Therapy Program [address] [address] Zonia Hoffman, ELECTRIC TRACK SWITCH MAINTAINER 800 [facility] [address] [place] [phone] Acute myeloid leukemia not having achieved remission [...] ([facility] Contact Info) Description 11/28/2024 2:00 PM EDT Clinical Support [facility] Hematology/BMT and Cellular Therapy Program [address] [address] 11/28/2024 2:30 PM EDT Office Visit [facility] Hematology/BMT and Cellular Therapy Program [address] [place] [address] Zonia Hoffman, ELECTRIC TRACK SWITCH MAINTAINER [address] [facility] [address] [place] [address] 11/28/2024 4:00 PM EDT Appointment [facility] 1 [address] [place] [address] 11/29/2024 1:00 PM EDT Appointment [facility] 1 [address] [place] [address] 11/30/2024 1:00 PM EDT Appointment [facility] 1 [address] [place] [address] 12/01/2024 1:00 PM EDT Appointment [facility] 2 [address] [place] [address] 12/02/2024 2:30 PM EDT Appointment [facility] 2 [address] [place] [address] 12/03/2024 2:00 PM EDT Appointment [facility] 1 [address] [place] [address] 12/04/2024 1:00 PM EDT Appointment [facility] [address] [place] [address] documented as of this encounter Visit Diagnoses [...] documented as of this encounter Care Teams Boiler Cleaner Relationship Specialty Start Date End Date Jevon Vazquez MD [address] [place] [address] #1 #1 [place] [address] PCP - General 03/23/22 documented as of this encounter
--- OUTSIDE RECORDS SUMMARY | 2024-11-17 08:59 | XMS_ITS | Encounter Summary ---
Author Organization Healthcare Address [address] [place] [address] Care Team Providers Care Fiberglass Tube Molder Name Role Phone Jevon Vazquez MD Primary Care Provider [phone] Encounter Details Date Type Department Care Team [...] Hematology/BMT and Cellular Therapy Program [address] [address] 11/28/2024 2:30 PM EDT Office Visit [facility] Hematology/BMT and Cellular Therapy Program [address] [address] Zonia Hoffman, PLATER PRINTED CIRCUIT BOARD PANELS 800 [facility] [address] [place] [address] 11/28/2024 4:00 PM EDT Appointment [facility] 1 [address] [place] [address] 11/29/2024 1:00 PM EDT Appointment [facility] 1 [address] [place] [address] 11/30/2024 1:00 PM EDT Appointment [facility] 1 [address] [place] [address] 12/01/2024 1:00 PM EDT Appointment [facility] 2 [address] [place] [address] 12/02/2024 2:30 PM EDT Appointment [facility] 2 [address] [place] [address] 12/03/2024 2:00 PM EDT Appointment [facility] 1 [address] [place] [address] 12/04/2024 1:00 PM EDT Appointment [facility] [address] [place] [address] documented as of this encounter Visit Diagnoses Not on filedocumented in this encounter Additional Health Concerns Assessment Noted Time A fall risk assessment has been complete d for the patient 09/30/2024 9:33 AM EDT A Body Mass Index follow-up plan has been documented for the patient 05/28/2024 1:52 PM EST documented as of this encounter Care Teams Fiberglass Tube Molder Relationship Specialty Start Date End Date Jevon Vazquez MD [address] [place] [address] #1 [address]1 [place] [address] PCP - General 03/23/22 documented as of this encounter
--- OUTSIDE RECORDS SUMMARY | 2024-11-17 08:59 | XMS_ITS | Encounter Summary ---
Author Organization [facility] Address [address] [place] [address] Care Team Providers Care Digital Marketing Project Manager Name Role Phone Jevon Vazquez MD Primary Care Provider [phone] Reason for Visit * Reason Comments Med Refill Encounter Details Date Type Department Care Team ([facility] Contact Info) Description 01/30/2024 Refill [facility] Hematology/BMT and Cellular Therapy Program [address] [phone] [place]in[place] MD 800 [facility] [address] [place] [phone] Social History Tobacco Use Types Packs/Day Years [...] [facility] Contact Info) Description 11/28/2024 2:00 PM EDT Clinical Support [facility] Hematology/BMT and Cellular Therapy Program [address] [place] [address] 11/28/2024 2:30 PM EDT Office Visit [facility] Hematology/BMT and Cellular Therapy Program [address] [phone] Zonia Hoffman, CREDIT COLLECTIONS CLERK [address] [facility] [address] [place] [address] 11/28/2024 4:00 PM EDT Appointment [facility] 1 [address] [place] [address] 11/29/2024 1:00 PM EDT Appointment [facility] 1 [address] [place] [address] 11/30/2024 1:00 PM EDT Appointment [facility] 1 [address] [place] [address] 12/01/2024 1:00 PM EDT Appointment [facility] 2 [address] [place] [address] 12/02/2024 2:30 PM EDT Appointment [facility] 2 [address] [place] [address] 12/03/2024 2:00 PM EDT Appointment [facility] 1 [address] [place] [address] 12/04/2024 1:00 PM EDT Appointment [facility] [address] [place] [address] documented as of this encounter Visit Diagnoses Not on filedocumented in this encounter Additional Health Concerns Assessment Noted Time A fall risk assessment has been complete d for the patient 01/11/2024 9:16 AM EDT A Body Mass Index follow-up plan has been documented for the patient 01/21/2024 6:16 AM EDT documented as of this encounter Care Teams Digital Marketing Project Manager Relationship Specialty Start Date End Date Jevon Vazquez MD [address] [place] [address] #1 #1 [place] [address] PCP - General 03/23/22 documented as of this encounter
--- OUTSIDE RECORDS SUMMARY | 2024-11-17 08:59 | XMS_ITS | Encounter Summary ---
Author Organization Healthcare Address [address] [place] [address] Care Team Providers Care Marine Erector Name Role Phone Jevon Vazquez MD Primary Care Provider [phone] Encounter Details Date Type Department Care Team [...] Hematology/BMT and Cellular Therapy Program [address] [address] 11/28/2024 2:30 PM EDT Office Visit [facility] Hematology/BMT and Cellular Therapy Program [address] [address] Zonia Hoffman, TRUCK LOADER 800 [facility] [address] [place] [address] 11/28/2024 4:00 PM EDT Appointment [facility] 1 [address] [place] [address] 11/29/2024 1:00 PM EDT Appointment [facility] 1 [address] [place] [address] 11/30/2024 1:00 PM EDT Appointment [facility] 1 [address] [place] [address] 12/01/2024 1:00 PM EDT Appointment [facility] 2 [address] [place] [address] 12/02/2024 2:30 PM EDT Appointment [facility] 2 [address] [place] [address] 12/03/2024 2:00 PM EDT Appointment [facility] 1 [address] [place] [address] 12/04/2024 1:00 PM EDT Appointment [facility] 800 [place] [address] documented as of this encounter Visit Diagnoses Not on filedocumented in this encounter Additional Health Concerns Assessment Noted Time A fall risk assessment has been complete d for the patient 09/30/2024 9:33 AM EDT A Body Mass Index follow-up plan has been documented for the patient 05/28/2024 1:52 PM EST documented as of this encounter Care Teams Marine Erector Relationship Specialty Start Date End Date Jevon Vazquez MD [address] [place] [address] #1 #1 [place] [address] PCP - General 03/23/22 documented as of this encounter
--- OUTSIDE RECORDS SUMMARY | 2024-11-17 09:00 | XMS_ITS | Encounter Summary ---
Author Organization Healthcare Address [address] [place] [address] Care Team Providers Care Laboratory Animal Care Veterinarian Name Role Phone Jevon Vazquez MD Primary Care Provider [phone] Encounter Details Date Type Department Care Team [...] Hematology/BMT and Cellular Therapy Program [address] [address] 11/28/2024 2:30 PM EDT Office Visit [facility] Hematology/BMT and Cellular Therapy Program [address] [address] Zonia Hoffman, DAIRY CATTLE FARM WORKER 800 [facility] [address] [place] [address] 11/28/2024 4:00 PM EDT Appointment [facility] 1 [address] [place] [address] 11/29/2024 1:00 PM EDT Appointment [facility] 1 [address] [place] [address] 11/30/2024 1:00 PM EDT Appointment [facility] 1 [address] [place] [address] 12/01/2024 1:00 PM EDT Appointment [facility] 2 [address] [place] [address] 12/02/2024 2:30 PM EDT Appointment [facility] 2 [address] [place] [address] 12/03/2024 2:00 PM EDT Appointment [facility] 1 [address] [place] [address] 12/04/2024 1:00 PM EDT Appointment [facility] [address] [place] [address] documented as of this encounter Visit Diagnoses Not on filedocumented in this encounter Additional Health Concerns Assessment Noted Time A fall risk assessment has been complete d for the patient 09/19/2024 8:38 AM EDT A Body Mass Index follow-up plan has been documented for the patient 05/28/2024 1:52 PM EST documented as of this encounter Care Teams Laboratory Animal Care Veterinarian Relationship Specialty Start Date End Date Jevon Vazquez MD [address] [place] [address] #1 #1 [place] [address] PCP - General 03/23/22 documented as of this encounter
--- OUTSIDE RECORDS SUMMARY | 2024-11-17 09:00 | XMS_ITS | Encounter Summary ---
Author Organization [facility] Address [address] [place] [address] Care Team Providers Care Nursing Instructor Name Role Phone Jevon Vazquez MD Primary Care Provider [phone] Encounter Details Date Type Department Care Team [...] Hematology/BMT and Cellular Therapy Program [address] [address] 11/28/2024 2:30 PM EDT Office Visit [facility] Hematology/BMT and Cellular Therapy Program [address] [address] Zonia Hoffman, SECOND FACING BASTER 800 [facility] [address] [place] [address] 11/28/2024 4:00 PM EDT Appointment [facility] 1 [address] [place] [address] 11/29/2024 1:00 PM EDT Appointment [facility] 1 [address] [place] [address] 11/30/2024 1:00 PM EDT Appointment [facility] 1 [address] [place] [address] 12/01/2024 1:00 PM EDT Appointment [facility] 2 [address] [place] [address] 12/02/2024 2:30 PM EDT Appointment [facility] 2 [address] [place] [address] 12/03/2024 2:00 PM EDT Appointment [facility] 1 [address] [place] [address] 12/04/2024 1:00 PM EDT Appointment [facility] [address] [place] [address] documented as of this encounter Visit Diagnoses Not on filedocumented in this encounter Additional Health Concerns Assessment Noted Time A fall risk assessment has been complete d for the patient 09/30/2024 9:33 AM EDT A Body Mass Index follow-up plan has been documented for the patient 05/28/2024 1:52 PM EST documented as of this encounter Care Teams Nursing Instructor Relationship Specialty Start Date End Date Jevon Vazquez MD [address] [place] [address] #1 #1 [place] [address] PCP - General 03/23/22 documented as of this encounter
--- OUTSIDE RECORDS SUMMARY | 2024-11-17 09:00 | XMS_ITS | Encounter Summary ---
Author Organization Healthcare Address [address] [place] [address] Care Team Providers Care Teasel Gig Operator Name Role Phone Jevon Vazquez MD Primary Care Provider [phone] Encounter Details Date Type Department Care Team [...] Hematology/BMT and Cellular Therapy Program [address] [address] 11/28/2024 2:30 PM EDT Office Visit [facility] Hematology/BMT and Cellular Therapy Program [address] [address] Zonia Hoffman, CROSSING WATCHMAN 800 [facility] [address] [place] [address] 11/28/2024 4:00 PM EDT Appointment [facility] 1 [address] [place] [address] 11/29/2024 1:00 PM EDT Appointment [facility] 1 [address] [place] [address] 11/30/2024 1:00 PM EDT Appointment [facility] 1 [address] [place] [address] 12/01/2024 1:00 PM EDT Appointment [facility] 2 [address] [place] [address] 12/02/2024 2:30 PM EDT Appointment [facility] 2 [address] [place] [address] 12/03/2024 2:00 PM EDT Appointment [facility] 1 [address] [place] [address] 12/04/2024 1:00 PM EDT Appointment [facility] 800 [place] [address] documented as of this encounter Visit Diagnoses Not on filedocumented in this encounter Additional Health Concerns Assessment Noted Time A fall risk assessment has been complete d for the patient 09/30/2024 9:33 AM EDT A Body Mass Index follow-up plan has been documented for the patient 05/28/2024 1:52 PM EST documented as of this encounter Care Teams Teasel Gig Operator Relationship Specialty Start Date End Date Jevon Vazquez MD [address] [place] [address] #1 #1 [place] [address] PCP - General 03/23/22 documented as of this encounter
--- OUTSIDE RECORDS SUMMARY | 2024-11-17 09:00 | XMS_ITS | Encounter Summary ---
Author Organization Healthcare Address [address] [place] [address] Care Team Providers Care Stock Fitter Name Role Phone Jevon Vazquez MD Primary Care Provider [phone] Encounter Details Date Type Department Care Team [...] Hematology/BMT and Cellular Therapy Program [address] [address] 11/28/2024 2:30 PM EDT Office Visit [facility] Hematology/BMT and Cellular Therapy Program [address] [address] Zonia Hoffman, PHOSPHORUS PROCESSING SUPERVISOR 800 [facility] [address] [place] [address] 11/28/2024 4:00 PM EDT Appointment [facility] 1 [address] [place] [address] 11/29/2024 1:00 PM EDT Appointment [facility] 1 [address] [place] [address] 11/30/2024 1:00 PM EDT Appointment [facility] 1 [address] [place] [address] 12/01/2024 1:00 PM EDT Appointment [facility] 2 [address] [place] [address] 12/02/2024 2:30 PM EDT Appointment [facility] 2 [address] [place] [address] 12/03/2024 2:00 PM EDT Appointment [facility] 1 [address] [place] [address] 12/04/2024 1:00 PM EDT Appointment [facility] In[facility] 800 [place] [address] documented as of this encounter Visit Diagnoses Not on filedocumented in this encounter Additional Health Concerns Assessment Noted Time A fall risk assessment has been complete d for the patient 09/30/2024 9:33 AM EDT A Body Mass Index follow-up plan has been documented for the patient 05/28/2024 1:52 PM EST documented as of this encounter Care Teams Stock Fitter Relationship Specialty Start Date End Date Jevon Vazquez MD [address] [place] [address] #1 #1 [place] [address] PCP - General 03/23/22 documented as of this encounter
--- OUTSIDE RECORDS SUMMARY | 2024-11-17 09:00 | XMS_ITS | Encounter Summary ---
Author Organization Healthcare Address [address] [place] [address] Care Team Providers Care Post Acute Care Nurse Practitioner Name Role Phone Jevon Vazquez MD Primary Care Provider [phone] Encounter Details Date Type Department Care Team [...] Hematology/BMT and Cellular Therapy Program [address] [address] 11/28/2024 2:30 PM EDT Office Visit [facility] Hematology/BMT and Cellular Therapy Program [address] [address] Zonia Hoffman, DIVIDEND DEPOSIT VOUCHER CLERK 800 [facility] [address] [place] [address] 11/28/2024 4:00 PM EDT Appointment [facility] 1 [address] [place] [address] 11/29/2024 1:00 PM EDT Appointment [facility] 1 [address] [place] [address] 11/30/2024 1:00 PM EDT Appointment [facility] 1 [address] [place] [address] 12/01/2024 1:00 PM EDT Appointment [facility] 2 [address] [place] [address] 12/02/2024 2:30 PM EDT Appointment [facility] 2 [address] [place] [address] 12/03/2024 2:00 PM EDT Appointment [facility] 1 [address] [place] [address] 12/04/2024 1:00 PM EDT Appointment [facility] In[facility] 800 [place] [address] documented as of this encounter Visit Diagnoses Not on filedocumented in this encounter Additional Health Concerns Assessment Noted Time A fall risk assessment has been complete d for the patient 09/30/2024 9:33 AM EDT A Body Mass Index follow-up plan has been documented for the patient 05/28/2024 1:52 PM EST documented as of this encounter Care Teams Post Acute Care Nurse Practitioner Relationship Specialty Start Date End Date Jevon Vazquez MD [address] [place] [address] #1 #1 [place] [address] PCP - General 03/23/22 documented as of this encounter
--- OUTSIDE RECORDS SUMMARY | 2024-11-17 09:00 | XMS_ITS | Encounter Summary ---
Author Organization Healthcare Address [address] [place] [address] Care Team Providers Care District Resource Officer Name Role Phone Jevon Vazquez MD Primary Care Provider [phone] Encounter Details Date Type Department Care Team [...] Hematology/BMT and Cellular Therapy Program [address] [address] 11/28/2024 2:30 PM EDT Office Visit [facility] Hematology/BMT and Cellular Therapy Program [address] [address] Zonia Hoffman, MOBILE EQUIPMENT SERVICER 800 [facility] [address] [place] [address] 11/28/2024 4:00 PM EDT Appointment [facility] 1 [address] [place] [address] 11/29/2024 1:00 PM EDT Appointment [facility] 1 [address] [place] [address] 11/30/2024 1:00 PM EDT Appointment [facility] 1 [address] [place] [address] 12/01/2024 1:00 PM EDT Appointment [facility] 2 [address] [place] [address] 12/02/2024 2:30 PM EDT Appointment [facility] 2 [address] [place] [address] 12/03/2024 2:00 PM EDT Appointment [facility] 1 [address] [place] [address] 12/04/2024 1:00 PM EDT Appointment [facility] Infusion [address] [place] [address] documented as of this encounter Visit Diagnoses Not on filedocumented in this encounter Additional Health Concerns Assessment Noted Time A fall risk assessment has been complete d for the patient 09/19/2024 8:38 AM EDT A Body Mass Index follow-up plan has been documented for the patient 05/28/2024 1:52 PM EST documented as of this encounter Care Teams District Resource Officer Relationship Specialty Start Date End Date Jevon Vazquez MD [address] [place] [address] #1 #1 [place] [address] PCP - General 03/23/22 documented as of this encounter
--- OUTSIDE RECORDS SUMMARY | 2024-11-17 09:00 | XMS_ITS | Clinical Summary ---
Author Organization [facility] Address [address] [place] [address] Care Team Providers Care Bottom Precipitator Operator Name Role Phone David Vazquez Primary Care Provider [phone] Allergies No known active allergies Medications atorvastatin [...] series) 2025 Medical Devices Implanted Type Area Unit Support Representative Device Identifier Shelf Expiration Date Model / Serial / Lot Mis Ply Scr 6.5x50mm - [id number] Implanted:Qty : 1 on 01/30/2023 by Ivan Bartholomew MD at [facility] [employer] Screw N/A: Spine Lumbar [employer] [id number] / / Mis Ply Scr 6.5x45mm - [id number] Implanted:Qty : 3 on 01/30/2023 by Ivan Bartholomew MD at [facility] Screw N/A: Spine Lumbar [employer] [id number] / / Reline Mas Reduction Screw 7.5x45 - [id number] Implanted:Qty : 2 on 01/30/2023 by Ivan Bartholomew MD at [facility] Screw N/A: Spine Lumbar [employer] [id number] / / Grft Dbm Vesuvius Putty 5cc - [id number] Implanted:Qty : 1 on 01/30/2023 by Ivan Bartholomew MD at [facility] [employer] [id number] 04/20/2025 [id number] P / [id number] / Putty I-Factor 5.0cc - [id number] Implanted:Qty : 1 on 01/30/2023 by Ivan Bartholomew MD at [facility] N/A: Spine Lumbar [employer] 03/15/2025 [id number] / / [id number] Modulus Xlw [id number] 10 Degree - [id number] Implanted:Qty : 1 on 01/30/2023 by Ivan Bartholomew MD at [facility] N/A: Spine Lumbar [employer] [id number] / / [id number] Modulus Xlw [id number] - [id number] Implanted:Qty : 1 on 01/30/2023 by Ivan Bartholomew MD at [facility] [employer] N/A: Spine Lumbar [employer] 09/28/2027 [id number] / / [id number] Reln Lock Scr 5.5mm Opn Tulip - [id number] Implanted:Qty : 6 on 01/30/2023 by Ivan Bartholomew MD at [facility] N/A: Spine Lumbar [employer] [id number] / / Reln Mas Ti Petar 5.5x70mm - [id number] Implanted:Qty : 2 on 01/30/2023 by Ivan Bartholomew MD at [facility] N/A: Spine Lumbar [employer] [id number] / / Procedures Procedure Name Priority Date/Time [...] Hgb A1C 6.0(H) 4.0 - 5.6 % [facility] Comment: Reference Ranges for [...] Glycohemoglobin Standardization program (NGSP) and traceable to [facility] Estimated Average Glucose 126(H) 68 - 114 mg/dL [facility] Whole Blood (Blood) 01/24/2023 2:32 PM EDT 01/24/2023 6:00 PM EDT us Ivan Bartholomew MD CHEMISTRY ORDERABLES Fin al Result [facility] [address] * (ABNORMAL) BASIC METABOLIC PANEL (BMP=EP1) (01/24/2023 2:32 PM EDT) Sodium 141 135 - 146 mmol/L [facility] Potassium 4.8 3.5 - 5.1 mmol/L [facility] Chloride 107 98 - 110 mmol/L [facility] CO2 24 22 - 29 mmol/L [facility] Anion Gap 10 5 - 13 mmol/L [facility] Comment:Anion gap calculatio n does not include potassium (K+) value. BUN 17 7 - 25 mg/dL [facility] Creatinine 1.20 0.50 - 1.20 mg/dL [facility] Glucose 125(H) 71 - 99 mg/dL [facility] Comment:Reference range (71- 99 mg/dL) refers only to fasting samples, and does not apply to non-fasting samples. eGFR CKD-EPI 2020 48 See Note [facility] Comment: eGFR calculated with 2020 CKD-EPI equation using creatinine, patient's age and gender. Other factors, especially muscle mass, may affect accuracy and need to be considered. Patient values should be interpreted as a trend. The reference interval is >60 mL/min/1.73m2. Calcium 10.3 8.5 - 10.5 mg/dL [facility] BUN/Creatinine Ratio 14 [facility] Serum 01/24/2023 2:32 PM EDT 01/24/2023 5:54 PM EDT us Lexi SUAREZ CHEMISTRY ORDERABLES Final Resu lt [facility] [address] from Last 3 Months or Most Recently Relevant to Health Maintenance Insurance MEDICARE PART A [facility] [address] [address] [place] [address] ANTH Advance Directives For more information, please contact: [phone] * Full Code (Latest Code Status on File) Date Activated Date Inactivated Comments 01/30/2023 9:13 AM No automated chest compression devices for [facility] Patients Care Teams Bottom Precipitator Operator Relationship Specialty Start Date End Date David Vazquez [address] [place] [id number] PCP - General 01/24/23
--- OUTSIDE RECORDS SUMMARY | 2024-11-17 09:00 | XMS_ITS | Encounter Summary ---
Author Organization Healthcare Address [address] [place] [address] Care Team Providers Care Supervisor Vendor Quality Name Role Phone Jevon Vazquez MD Primary Care Provider [phone] Encounter Details Date Type Department Care Team [...] Hematology/BMT and Cellular Therapy Program [address] [address] 11/28/2024 2:30 PM EDT Office Visit [facility] Hematology/BMT and Cellular Therapy Program [address] [address] Zonia Hoffman, AUCTION CLERK 800 [facility] [address] [place] [address] 11/28/2024 4:00 PM EDT Appointment [facility] 1 [address] [place] [address] 11/29/2024 1:00 PM EDT Appointment [facility] 1 [address] [place] [address] 11/30/2024 1:00 PM EDT Appointment [facility] 1 [address] [place] [address] 12/01/2024 1:00 PM EDT Appointment [facility] 2 [address] [place] [address] 12/02/2024 2:30 PM EDT Appointment [facility] 2 [address] [place] [address] 12/03/2024 2:00 PM EDT Appointment [facility] 1 [address] [place] [address] 12/04/2024 1:00 PM EDT Appointment [facility] [address] [place] [address] documented as of this encounter Visit Diagnoses Not on filedocumented in this encounter Additional Health Concerns Assessment Noted Time A fall risk assessment has been complete d for the patient 09/19/2024 8:38 AM EDT A Body Mass Index follow-up plan has been documented for the patient 05/28/2024 1:52 PM EST documented as of this encounter Care Teams Supervisor Vendor Quality Relationship Specialty Start Date End Date Jevon Vazquez MD [address] [place] [address] #1 [address] [place] [address] PCP - General 03/23/22 documented as of this encounter
--- OUTSIDE RECORDS SUMMARY | 2024-11-17 09:00 | XMS_ITS | Encounter Summary ---
Author Organization Healthcare Address [address] [place] [address] Care Team Providers Care Jalousies Installer Name Role Phone Jevon Vazquez MD Primary Care Provider [phone] Encounter Details Date Type Department Care Team [...] Hematology/BMT and Cellular Therapy Program [address] [address] 11/28/2024 2:30 PM EDT Office Visit [facility] Hematology/BMT and Cellular Therapy Program [address] [address] Zonia Hoffman, MIDDLE SCHOOL TUTOR 800 [facility] [address] [place] [address] 11/28/2024 4:00 PM EDT Appointment [facility] 1 [address] [place] [address] 11/29/2024 1:00 PM EDT Appointment [facility] 1 [address] [place] [address] 11/30/2024 1:00 PM EDT Appointment [facility] 1 [address] [place] [address] 12/01/2024 1:00 PM EDT Appointment [facility] 2 [address] [place] [address] 12/02/2024 2:30 PM EDT Appointment [facility] 2 [address] [place] [address] 12/03/2024 2:00 PM EDT Appointment [facility] 1 [address] [place] [address] 12/04/2024 1:00 PM EDT Appointment [facility] [address] [place] [address] documented as of this encounter Visit Diagnoses Not on filedocumented in this encounter Additional Health Concerns Assessment Noted Time A fall risk assessment has been complete d for the patient 09/19/2024 8:38 AM EDT A Body Mass Index follow-up plan has been documented for the patient 05/28/2024 1:52 PM EST documented as of this encounter Care Teams Jalousies Installer Relationship Specialty Start Date End Date Jevon Vazquez MD [address] [place] [address] [address]1 [address]1 [place] [address] PCP - General 03/23/22 documented as of this encounter
--- OUTSIDE RECORDS SUMMARY | 2024-11-17 09:00 | XMS_ITS | Encounter Summary ---
Author Organization Healthcare Address [address] [place] [address] Care Team Providers Care Risk Control Director Name Role Phone Jevon Vazquez MD Primary Care Provider [phone] Encounter Details Date Type Department Care Team [...] Cellular Therapy Program [address] [address] 11/28/2024 2:30 PM EDT Office Visit [facility] Hematology/BMT and Cellular Therapy Program [address] [address] Zonia Hoffman, DIRECTOR MARKET RESEARCH 800 [facility] [address] [place] [address] 11/28/2024 4:00 PM EDT Appointment [facility] 1 [address] [place] [address] 11/29/2024 1:00 PM EDT Appointment [facility] 1 [address] [place] [address] 11/30/2024 1:00 PM EDT Appointment [facility] 1 [address] [place] [address] 12/01/2024 1:00 PM EDT Appointment [facility] 2 [address] [place] [address] 12/02/2024 2:30 PM EDT Appointment [facility] 2 [address] [place] [address] 12/03/2024 2:00 PM EDT Appointment [facility] 1 [address] [place] [address] 12/04/2024 1:00 PM EDT Appointment [facility] [address] [place] [address] documented as of this encounter Visit Diagnoses Not on filedocumented in this encounter Additional Health Concerns Assessment Noted Time A fall risk assessment has been complete d for the patient 09/30/2024 9:33 AM EDT A Body Mass Index follow-up plan has been documented for the patient 05/28/2024 1:52 PM EST documented as of this encounter Care Teams Risk Control Director Relationship Specialty Start Date End Date Jevon Vazquez MD [address] [place] [address] [address]1 [address]1 [place] [address] PCP - General 03/23/22 documented as of this encounter
--- OUTSIDE RECORDS SUMMARY | 2024-11-17 09:00 | XMS_ITS | Encounter Summary ---
Author Organization Healthcare Address [address] [place] [address] Care Team Providers Care Hander In Name Role Phone Jevon Vazquez MD Primary [...] Hematology/BMT and Cellular Therapy Program [address] [address] 11/28/2024 2:30 PM EDT Office Visit [facility] Hematology/BMT and Cellular Therapy Program [address] [address] Zonia Hoffman, WOOD MACHINE CARVER 800 [facility] [address] [place] [address] 11/28/2024 4:00 PM EDT Appointment [facility] 1 [address] [place] [address] 11/29/2024 1:00 PM EDT Appointment [facility] 1 [address] [place] [address] 11/30/2024 1:00 PM EDT Appointment [facility] 1 [address] [place] [address] 12/01/2024 1:00 PM EDT Appointment [facility] 2 [address] [place] [address] 12/02/2024 2:30 PM EDT Appointment [facility] 2 [address] [place] [address] 12/03/2024 2:00 PM EDT Appointment [facility] 1 [address] [place] [address] 12/04/2024 1:00 PM EDT Appointment [facility] [address] [place] [address] documented as of this encounter Visit Diagnoses Not on filedocumented in this encounter Additional Health Concerns Assessment Noted Time A fall risk assessment has been complete d for the patient 09/30/2024 9:33 AM EDT A Body Mass Index follow-up plan has been documented for the patient 05/28/2024 1:52 PM EST documented as of this encounter Care Teams Hander In Relationship Specialty Start Date End Date Jevon Vazquez MD [address] [place] [address] #1 [address]1 [place] [address] PCP - General 03/23/22 documented as of this encounter
--- OUTSIDE RECORDS SUMMARY | 2024-11-17 09:00 | XMS_ITS | Encounter Summary ---
Author Organization Healthcare Address [address] [place] [address] Care Team Providers Care Traveling Missionary Name Role Phone Jevon Vazquez MD Primary [...] Hematology/BMT and Cellular Therapy Program [address] [address] 11/28/2024 2:30 PM EDT Office Visit [facility] Hematology/BMT and Cellular Therapy Program [address] [address] Zonia Hoffman, COMPENSATION AND BENEFITS ADMINISTRATOR 800 [facility] [address] [place] [address] 11/28/2024 4:00 PM EDT Appointment [facility] 1 [address] [place] [address] 11/29/2024 1:00 PM EDT Appointment [facility] 1 [address] [place] [address] 11/30/2024 1:00 PM EDT Appointment [facility] 1 [address] [place] [address] 12/01/2024 1:00 PM EDT Appointment [facility] 2 [address] [place] [address] 12/02/2024 2:30 PM EDT Appointment [facility] 2 [address] [place] [address] 12/03/2024 2:00 PM EDT Appointment [facility] 1 [address] [place] [address] 12/04/2024 1:00 PM EDT Appointment [facility] [address] [place] [address] documented as of this encounter Visit Diagnoses Not on filedocumented in this encounter Additional Health Concerns Assessment Noted Time A fall risk assessment has been complete d for the patient 09/30/2024 9:33 AM EDT A Body Mass Index follow-up plan has been documented for the patient 05/28/2024 1:52 PM EST documented as of this encounter Care Teams Traveling Missionary Relationship Specialty Start Date End Date Jevon Vazquez MD [address] [place] [address] #1 [address]1 [place] [address] PCP - General 03/23/22 documented as of this encounter
--- OUTSIDE RECORDS SUMMARY | 2024-11-17 09:00 | XMS_ITS | Encounter Summary ---
Author Organization Healthcare Address [address] [place] [address] Care Team Providers Care Broomcorn Seeder Name Role Phone Jevon Vazquez MD Primary Care Provider [phone] Encounter Details Date Type Department Care Team [...] Hematology/BMT and Cellular Therapy Program [address] [address] 11/28/2024 2:30 PM EDT Office Visit [facility] Hematology/BMT and Cellular Therapy Program [address] [address] Zonia Hoffman, JEWEL WAXER 800 [facility] [address] [place] [address] 11/28/2024 4:00 PM EDT Appointment [facility] 1 [address] [place] [address] 11/29/2024 1:00 PM EDT Appointment [facility] 1 [address] [place] [address] 11/30/2024 1:00 PM EDT Appointment [facility] 1 [address] [place] [address] 12/01/2024 1:00 PM EDT Appointment [facility] 2 [address] [place] [address] 12/02/2024 2:30 PM EDT Appointment [facility] 2 [address] [place] [address] 12/03/2024 2:00 PM EDT Appointment [facility] 1 [address] [place] [address] 12/04/2024 1:00 PM EDT Appointment [facility] [address] [place] [address] documented as of this encounter Visit Diagnoses Not on filedocumented in this encounter Additional Health Concerns Assessment Noted Time A fall risk assessment has been complete d for the patient 09/30/2024 9:33 AM EDT A Body Mass Index follow-up plan has been documented for the patient 05/28/2024 1:52 PM EST documented as of this encounter Care Teams Broomcorn Seeder Relationship Specialty Start Date End Date Jevon Vazquez MD [address] [place] [address] #1 [address]1 [place] [address] PCP - General 03/23/22 documented as of this encounter
--- OUTSIDE RECORDS SUMMARY | 2024-11-17 09:00 | XMS_ITS | Encounter Summary ---
Author Organization Healthcare Address [address] [place] [address] Care Team Providers Care Welfare Specialist Name Role Phone Jevon Vazquez MD Primary Care Provider [phone] Encounter Details Date Type Department Care Team ([facility] st Contact Info) Description 10/13/2024 Telephone [facility] Hematology/BMT and Cellular Therapy Program [address] [address] Zonia Hoffman, HOME HEALTH CARE PHYSICIAN 800 [facility] [address] [place] [address] Social History Tobacco Use Types Packs/Day Years [...] needs to be delayed again Callback number: [phone] documented in this encounter Plan of Treatment Upcoming Encounters Date Type Department Care Team ([facility] st Contact Info) Description 11/28/2024 2:00 PM EDT Clinical Support [facility] Hematology/BMT and Cellular Therapy Program [address] [address] 11/28/2024 2:30 PM EDT Office Visit [facility] Hematology/BMT and Cellular Therapy Program [address] [address] Zonia Hoffman, HOME HEALTH CARE PHYSICIAN 800 [facility] [address] [place] [address] 11/28/2024 4:00 PM EDT Appointment [facility] 1 [address] [place] [address] 11/29/2024 1:00 PM EDT Appointment [facility] 1 [address] [place] [address] 11/30/2024 1:00 PM EDT Appointment [facility] 1 [address] [place] [address] 12/01/2024 1:00 PM EDT Appointment [facility] 2 [address] [place] [address] 12/02/2024 2:30 PM EDT Appointment [facility] 2 [address] [place] [address] 12/03/2024 2:00 PM EDT Appointment [facility] 1 [address] [place] [address] 12/04/2024 1:00 PM EDT Appointment [facility] [address] [place] [address] documented as of this encounter Visit Diagnoses Not on filedocumented in this encounter Additional Health Concerns Assessment Noted Time A fall risk assessment has been complete d for the patient 09/30/2024 9:33 AM EDT A Body Mass Index follow-up plan has been documented for the patient 05/28/2024 1:52 PM EST documented as of this encounter Care Teams Welfare Specialist Relationship Specialty Start Date End Date Jevon Vazquez MD [address] [place] [address] #1 #1 [place] [address] PCP - General 03/23/22 documented as of this encounter
--- OUTSIDE RECORDS SUMMARY | 2024-11-17 09:00 | XMS_ITS | Encounter Summary ---
Author Organization Healthcare Address [address] [place] [address] Care Team Providers Care Framing Manager Name Role Phone Jevon Vazquez MD Primary Care Provider [phone] Encounter Details Date Type Department Care Team ([facility] Contact Info) Description 09/19/2024 Orders Only [facility] Hematology/BMT and Cellular Therapy Program [address] [phone] 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, RN [facility] Social History Tobacco [...] Hematology/BMT and Cellular Therapy Program [address] [address] 11/28/2024 2:30 PM EDT Office Visit [facility] Hematology/BMT and Cellular Therapy Program [address] [phone] Zonia Hoffman, OFFICE ENGINEER 800 [facility] [address] [place] [address] 11/28/2024 4:00 PM EDT Appointment [facility] 1 [address] [place] [address] 11/29/2024 1:00 PM EDT Appointment [facility] 1 [address] [place] [address] 11/30/2024 1:00 PM EDT Appointment [facility] 1 [address] [place] [address] 12/01/2024 1:00 PM EDT Appointment [facility] 2 [address] [place] [address] 12/02/2024 2:30 PM EDT Appointment [facility] 2 [address] [place] [address] 12/03/2024 2:00 PM EDT Appointment [facility] 1 [address] [place] [address] 12/04/2024 1:00 PM EDT Appointment [facility] Infusion [address] [place] [address] documented as of this encounter Visit Diagnoses Not on filedocumented in this encounter Additional Health Concerns Assessment Noted Time A fall risk assessment has been complete d for the patient 09/19/2024 8:38 AM EDT A Body Mass Index follow-up plan has been documented for the patient 05/28/2024 1:52 PM EST documented as of this encounter Care Teams Framing Manager Relationship Specialty Start Date End Date Jevon Vazquez MD [address] [place] [address] #1 [address]1 [place] [address] PCP - General 03/23/22 documented as of this encounter
--- OUTSIDE RECORDS SUMMARY | 2024-11-17 09:00 | XMS_ITS ---
Author Organization [facility] [place] Address [address] [place] [address] Care Team Providers Care Fence Post Cutter Name Role Phone Jevon Vazquez MD Primary Care Provider [phone] Active Problems Problem Noted Date Diagnosed Date [...]
--- OUTSIDE RECORDS SUMMARY | 2024-11-17 09:00 | XMS_ITS | Encounter Summary ---
Author Organization Healthcare Address [address] [place] [address] Care Team Providers Care Green Plumber Name Role Phone Jevon Vazquez MD Primary Care Provider [phone] Encounter Details Date Type Department Care Team (Late Contact Info) Description 09/30/2024 Telephone [facility] Hematology/BMT and Cellular Therapy Program [address] [place] [address] Zoraida Good, RN [facility] Social History Tobacco [...] Hematology/BMT and Cellular Therapy Program 750 [facility] [address] [place] [address] [place] [address] 11/28/2024 2:30 PM EDT Office Visit [facility] Hematology/BMT and Cellular Therapy Program 750 [facility] [place] [address] Zonia Hoffman, COMMERCIAL REAL ESTATE SALES MANAGER 800 [facility] [address] [place] [address] 11/28/2024 4:00 PM EDT Appointment [facility] 1 [address] [place] [address] 11/29/2024 1:00 PM EDT Appointment [facility] 1 [address] [place] [address] 11/30/2024 1:00 PM EDT Appointment [facility] 1 [address] [place] [address] 12/01/2024 1:00 PM EDT Appointment [facility] 2 [address] [place] [address] 12/02/2024 2:30 PM EDT Appointment [facility] 2 [address] [place] [address] 12/03/2024 2:00 PM EDT Appointment [facility] 1 [address] [place] [address] 12/04/2024 1:00 PM EDT Appointment [facility] In[facility] [address] [place] [address] documented as of this encounter Visit Diagnoses Not on filedocumented in this encounter Additional Health Concerns Assessment Noted Time A fall risk assessment has been complete d for the patient 09/30/2024 9:33 AM EDT A Body Mass Index follow-up plan has been documented for the patient 05/28/2024 1:52 PM EST documented as of this encounter Care Teams Green Plumber Relationship Specialty Start Date End Date Jevon Vazquez MD [address] [place] [address] #1 #1 [place] [address] PCP - General 03/23/22 documented as of this encounter
--- OUTSIDE RECORDS SUMMARY | 2024-11-17 09:00 | XMS_ITS | Encounter Summary ---
Author Organization [facility] Address [address] [place] [address] Care Team Providers Care Geological Manager Name Role Phone Jevon Vazquez MD Primary Care Provider [phone] Reason for Visit * Reason Comments Med Refill Encounter Details Date Type Department Care Team ([facility] Contact Info) Description 11/08/2024 Refill [facility] Hematology/BMT and Cellular Therapy Program [address] [phone] New Mckinney MD 800 [facility] [address] [place] [phone] Social History Tobacco Use Types Packs/Day Years [...] ([facility] Contact Info) Description 11/28/2024 2:00 PM EDT Clinical Support P[facility] CC Hematology/BMT and Cellular Therapy Program [address] [address] 11/28/2024 2:30 PM EDT Office Visit [facility] CC Hematology/BMT and Cellular Therapy Program [address] [address] Zonia Hoffman, LACE CUTTER [address] [facility] [address] [place] [address] 11/28/2024 4:00 PM EDT Appointment [facility] 1 [address] [place] [address] 11/29/2024 1:00 PM EDT Appointment [facility] 1 [address] [place] [address] 11/30/2024 1:00 PM EDT Appointment [facility] 1 [address] [place] [address] 12/01/2024 1:00 PM EDT Appointment [facility] 2 [address] [place] [address] 12/02/2024 2:30 PM EDT Appointment [facility] 2 [address] [place] [address] 12/03/2024 2:00 PM EDT Appointment [facility] 1 [address] [place] [address] 12/04/2024 1:00 PM EDT Appointment [facility] Infusion [address] [place] [address] documented as of this encounter Visit Diagnoses Not on filedocumented in this encounter Additional Health Concerns Assessment Noted Time A fall risk assessment has been complete d for the patient 09/30/2024 9:33 AM EDT A Body Mass Index follow-up plan has been documented for the patient 05/28/2024 1:52 PM EST documented as of this encounter Care Teams Geological Manager Relationship Specialty Start Date End Date Jevon Vazquez MD [address] [place] [address] #1 #1 [place] [address] PCP - General 03/23/22 documented as of this encounter
--- OUTSIDE RECORDS SUMMARY | 2024-11-17 09:00 | XMS_ITS | Encounter Summary ---
Author Organization [facility] Address [address] [place] [address] Care Team Providers Care Federal Java Developer Name Role Phone Jevon Vazquez MD Primary Care Provider [phone] Encounter Details Date Type Department Care Team ([facility] Contact Info) Description 09/19/2024 Telephone P[facility] CC Hematology/BMT and Cellular Therapy Program [address] [place] [address] Romana [place] RN [facility] Social History Tobacco Use [...] Department Care Team ([facility] Contact Info) Description 11/28/2024 2:00 PM EDT Clinical Support [facility] CC Hematology/BMT and Cellular Therapy Program [address] [place] [address] 11/28/2024 2:30 PM EDT Office Visit [facility] CC Hematology/BMT and Cellular Therapy Program 750 [facility] [address] [place] [address] Zonia Hoffman, CAP SIZER [address] [facility] [address] [place] [address] 11/28/2024 4:00 PM EDT Appointment [facility] 1 [address] [place] [address] 11/29/2024 1:00 PM EDT Appointment [facility] 1 [address] [place] [address] 11/30/2024 1:00 PM EDT Appointment [facility] 1 [address] [place] [address] 12/01/2024 1:00 PM EDT Appointment [facility] 2 [address] [place] [address] 12/02/2024 2:30 PM EDT Appointment [facility] 2 [address] [place] [address] 12/03/2024 2:00 PM EDT Appointment [facility] 1 [address] [place] [address] 12/04/2024 1:00 PM EDT Appointment [facility] Infusion [address] [place] [address] documented as of this encounter Visit Diagnoses Not on filedocumented in this encounter Additional Health Concerns Assessment Noted Time A fall risk assessment has been complete d for the patient 09/19/2024 8:38 AM EDT A Body Mass Index follow-up plan has been documented for the patient 05/28/2024 1:52 PM EST documented as of this encounter Care Teams Federal Java Developer Relationship Specialty Start Date End Date Jevon Vazquez MD [address] [place] [address] #1 #1 [place] [address] PCP - General 03/23/22 documented as of this encounter
--- OUTSIDE RECORDS SUMMARY | 2024-11-17 09:00 | XMS_ITS | Encounter Summary ---
Author Organization [facility] Address [address] [place] [address] Care Team Providers Care Tractor Operator Laser Leveling Name Role Phone Jevon Vazquez MD Primary Care Provider [phone] Reason for Visit * Reason Comments Med Refill Encounter Details Date Type Department Care Team ([facility] Contact Info) Description 10/14/2024 Refill [facility] CC Hematology/BMT and Cellular Therapy Program [address] [phone] New Mckinney MD 800 [facility] [address] [place] [phone] Social History Tobacco Use Types Packs/Day Years [...] Care Team ([facility] Contact Info) Description 11/28/2024 2:00 PM EDT Clinical Support [facility] CC Hematology/BMT and Cellular Therapy Program [address] [phone] 11/28/2024 2:30 PM EDT Office Visit [facility] CC Hematology/BMT and Cellular Therapy Program [address] [address] Zonia Hoffman, CINDER BLOCK MAKER [address] [facility] [address] [place] [address] 11/28/2024 4:00 PM EDT Appointment [facility] 1 [address] [place] [address] 11/29/2024 1:00 PM EDT Appointment [facility] 1 [address] [place] [address] 11/30/2024 1:00 PM EDT Appointment [facility] 1 [address] [place] [address] 12/01/2024 1:00 PM EDT Appointment [facility] 2 [address] [place] [address] 12/02/2024 2:30 PM EDT Appointment [facility] 2 [address] [place] [address] 12/03/2024 2:00 PM EDT Appointment [facility] 1 [address] [place] [address] 12/04/2024 1:00 PM EDT Appointment [facility] Infusion 800 [place] [address] documented as of this encounter Visit Diagnoses Not on filedocumented in this encounter Additional Health Concerns Assessment Noted Time A fall risk assessment has been complete d for the patient 09/30/2024 9:33 AM EDT A Body Mass Index follow-up plan has been documented for the patient 05/28/2024 1:52 PM EST documented as of this encounter Care Teams Tractor Operator Laser Leveling Relationship Specialty Start Date End Date Jevon Vazquez MD [address] [place] [address] #1 #1 [place] [address] PCP - General 03/23/22 documented as of this encounter
--- OUTSIDE RECORDS SUMMARY | 2024-11-17 09:00 | XMS_ITS | Encounter Summary ---
Author Organization [facility] Address [address] [place] [address] Care Team Providers Care Long Goods Drier Name Role Phone Jevon Vazquez MD Primary Care Provider [phone] Encounter Details Date Type Department Care Team [...] Hematology/BMT and Cellular Therapy Program [address] [address] 11/28/2024 2:30 PM EDT Office Visit [facility] Hematology/BMT and Cellular Therapy Program [address] [address] Zonia Hoffman, PROFILING MACHINE SETUP OPERATOR 800 [facility] [address] [place] [address] 11/28/2024 4:00 PM EDT Appointment [facility] 1 [address] [place] [address] 11/29/2024 1:00 PM EDT Appointment [facility] 1 [address] [place] [address] 11/30/2024 1:00 PM EDT Appointment [facility] 1 [address] [place] [address] 12/01/2024 1:00 PM EDT Appointment [facility] 2 [address] [place] [address] 12/02/2024 2:30 PM EDT Appointment [facility] 2 [address] [place] [address] 12/03/2024 2:00 PM EDT Appointment [facility] 1 [address] [place] [address] 12/04/2024 1:00 PM EDT Appointment [facility] Infusion [address] [place] [address] documented as of this encounter Visit Diagnoses Not on filedocumented in this encounter Additional Health Concerns Assessment Noted Time A fall risk assessment has been complete d for the patient 09/30/2024 9:33 AM EDT A Body Mass Index follow-up plan has been documented for the patient 05/28/2024 1:52 PM EST documented as of this encounter Care Teams Long Goods Drier Relationship Specialty Start Date End Date Jevon Vazquez MD [address] [place] [address] #1 #1 [place] [address] PCP - General 03/23/22 documented as of this encounter
--- OUTSIDE RECORDS SUMMARY | 2024-11-17 09:00 | XMS_ITS | Encounter Summary ---
Author Organization [facility] Address [address] [place] [address] Care Team Providers Care Program Consultant Name Role Phone Jevon Vazquez MD Primary Care Provider [phone] Encounter Details Date Type Department Care Team [...] Hematology/BMT and Cellular Therapy Program [address] [address] 11/28/2024 2:30 PM EDT Office Visit [facility] CC Hematology/BMT and Cellular Therapy Program [address] [address] Zonia Hoffman, SHIP'S COOK 800 [facility] [address] [place] [address] 11/28/2024 4:00 PM EDT Appointment [facility] 1 [address] [place] [address] 11/29/2024 1:00 PM EDT Appointment [facility] 1 [address] [place] [address] 11/30/2024 1:00 PM EDT Appointment [facility] 1 [address] [place] [address] 12/01/2024 1:00 PM EDT Appointment [facility] 2 [address] [place] [address] 12/02/2024 2:30 PM EDT Appointment [facility] 2 [address] [place] [address] 12/03/2024 2:00 PM EDT Appointment [facility] 1 [address] [place] [address] 12/04/2024 1:00 PM EDT Appointment [facility] Infusion 800 [place] [address] documented as of this encounter Visit Diagnoses Not on filedocumented in this encounter Additional Health Concerns Assessment Noted Time A fall risk assessment has been complete d for the patient 09/30/2024 9:33 AM EDT A Body Mass Index follow-up plan has been documented for the patient 05/28/2024 1:52 PM EST documented as of this encounter Care Teams Program Consultant Relationship Specialty Start Date End Date Jevon Vazquez MD [address] [place] [address] #1 #1 [place] [address] PCP - General 03/23/22 documented as of this encounter
--- OUTSIDE RECORDS SUMMARY | 2024-11-17 09:00 | XMS_ITS | Encounter Summary ---
Author Organization [facility] Address [address] [place] [address] Care Team Providers Care Polystyrene Bead Molder Name Role Phone Jevon Vazquez MD Primary Care Provider [phone] Encounter Details Date Type Department Care Team [...] Hematology/BMT and Cellular Therapy Program [address] [address] 11/28/2024 2:30 PM EDT Office Visit [facility] CC Hematology/BMT and Cellular Therapy Program [address] [address] Zonia Hoffman, SYSTEMS AUDITOR 800 [facility] [address] [place] [phone] 11/28/2024 4:00 PM EDT Appointment [facility] 1 [address] [place] [address] 11/29/2024 1:00 PM EDT Appointment [facility] 1 [address] [place] [address] 11/30/2024 1:00 PM EDT Appointment [facility] 1 [address] [place] [address] 12/01/2024 1:00 PM EDT Appointment [facility] 2 [address] [place] [address] 12/02/2024 2:30 PM EDT Appointment [facility] 2 [address] [place] [address] 12/03/2024 2:00 PM EDT Appointment [facility] 1 [address] [place] [address] 12/04/2024 1:00 PM EDT Appointment [facility] Infusion 800 [place] [address] documented as of this encounter Visit Diagnoses Not on filedocumented in this encounter Additional Health Concerns Assessment Noted Time A fall risk assessment has been complete d for the patient 09/30/2024 9:33 AM EDT A Body Mass Index follow-up plan has been documented for the patient 05/28/2024 1:52 PM EST documented as of this encounter Care Teams Polystyrene Bead Molder Relationship Specialty Start Date End Date Jevon Vazquez MD [address] [place] [address] #1 #1 [place] [address] PCP - General 03/23/22 documented as of this encounter
--- OUTSIDE RECORDS SUMMARY | 2024-11-17 09:01 | XMS_ITS | Encounter Summary ---
Author Organization Healthcare Address [address] [place] [address] Care Team Providers Care Broaching Machine Set Up Operator Name Role Phone Jevon Vazquez MD Primary Care Provider [phone] Encounter Details Date Type Department Care Team ([facility] st Contact Info) Description 10/27/2024 Telephone P[facility] CC Hematology/BMT and Cellular Therapy Program [address] [address] Zonia Hoffman, SIGNAL WIRER 800 [facility] [address] [place] [phone] Social History Tobacco Use Types Packs/Day Years [...] and her new appts will be on [facility]. She verbalizes understanding. * Telephone Encounter - [...] Hematology/BMT and Cellular Therapy Program [address] [address] 11/28/2024 2:30 PM EDT Office Visit PAV Hematology/BMT and Cellular Therapy Program [address] [address] Zonia Hoffman, SIGNAL WIRER 800 [facility] [address] [place] [address] 11/28/2024 4:00 PM EDT Appointment [facility] 1 [address] [place] [address] 11/29/2024 1:00 PM EDT Appointment [facility] 1 [address] [place] [address] 11/30/2024 1:00 PM EDT Appointment [facility] 1 [address] [place] [address] 12/01/2024 1:00 PM EDT Appointment [facility] 2 [address] [place] [address] 12/02/2024 2:30 PM EDT Appointment [facility] 2 [address] [place] [address] 12/03/2024 2:00 PM EDT Appointment [facility] 1 [address] [place] [address] 12/04/2024 1:00 PM EDT Appointment [facility] H Infusion 800 [place] [address] documented as of this encounter Visit Diagnoses Not on filedocumented in this encounter Additional Health Concerns Assessment Noted Time A fall risk assessment has been complete d for the patient 09/30/2024 9:33 AM EDT A Body Mass Index follow-up plan has been documented for the patient 05/28/2024 1:52 PM EST documented as of this encounter Care Teams Broaching Machine Set Up Operator Relationship Specialty Start Date End Date Jevon Vazquez MD [address] [place] [address] #1 #1 [place] [address] PCP - General 03/23/22 documented as of this encounter
--- OUTSIDE RECORDS SUMMARY | 2024-11-17 09:01 | XMS_ITS | Encounter Summary ---
Author Organization Healthcare Address [address] [place] [address] Care Team Providers Care Pallet Rectifier Name Role Phone Jevon Vazquez MD Primary Care Provider [phone] Encounter Details Date Type Department Care Team [...] Hematology/BMT and Cellular Therapy Program [address] [address] 11/28/2024 2:30 PM EDT Office Visit P[facility] CC Hematology/BMT and Cellular Therapy Program [address] [address] Zonia Hoffman, SUPERVISOR TWISTING DEPARTMENT 800 [facility] [address] [place] [address] 11/28/2024 4:00 PM EDT Appointment [facility] 1 [address] [place] [address] 11/29/2024 1:00 PM EDT Appointment [facility] 1 [address] [place] [address] 11/30/2024 1:00 PM EDT Appointment [facility] 1 [address] [place] [address] 12/01/2024 1:00 PM EDT Appointment [facility] 2 [address] [place] [address] 12/02/2024 2:30 PM EDT Appointment [facility] 2 [address] [place] [address] 12/03/2024 2:00 PM EDT Appointment [facility] 1 [address] [place] [address] 12/04/2024 1:00 PM EDT Appointment [facility] Infusion [address] [place] [address] documented as of this encounter Visit Diagnoses Not on filedocumented in this encounter Additional Health Concerns Assessment Noted Time A fall risk assessment has been complete d for the patient 09/19/2024 8:38 AM EDT A Body Mass Index follow-up plan has been documented for the patient 05/28/2024 1:52 PM EST documented as of this encounter Care Teams Pallet Rectifier Relationship Specialty Start Date End Date Jevon Vazquez MD [address] [place] [address] #1 #1 [place] [address] PCP - General 03/23/22 documented as of this encounter
--- OUTSIDE RECORDS SUMMARY | 2024-11-17 09:01 | XMS_ITS | Encounter Summary ---
Author Organization Healthcare Address [address] [place] [address] Care Team Providers Care Service Or Work Dispatcher Name Role Phone Jevon Vazquez MD Primary Care Provider [phone] Encounter Details Date Type Department Care Team [...] Hematology/BMT and Cellular Therapy Program [address] [address] 11/28/2024 2:30 PM EDT Office Visit [facility] CC Hematology/BMT and Cellular Therapy Program [address] [address] Zonia Hoffman, STRIPPING CUTTER AND WINDER 800 [facility] [address] [place] [address] 11/28/2024 4:00 PM EDT Appointment [facility] 1 [address] [place] [address] 11/29/2024 1:00 PM EDT Appointment [facility] 1 [address] [place] [address] 11/30/2024 1:00 PM EDT Appointment [facility] 1 [address] [place] [address] 12/01/2024 1:00 PM EDT Appointment [facility] 2 [address] [place] [address] 12/02/2024 2:30 PM EDT Appointment [facility] 2 [address] [place] [address] 12/03/2024 2:00 PM EDT Appointment [facility] 1 [address] [place] [address] 12/04/2024 1:00 PM EDT Appointment [facility] Infusion [address] [place] [address] documented as of this encounter Visit Diagnoses Not on filedocumented in this encounter Additional Health Concerns Assessment Noted Time A fall risk assessment has been complete d for the patient 09/19/2024 8:38 AM EDT A Body Mass Index follow-up plan has been documented for the patient 05/28/2024 1:52 PM EST documented as of this encounter Care Teams Service Or Work Dispatcher Relationship Specialty Start Date End Date Jevon Vazquez MD [address] [place] [address] #1 #1 [place] [address] PCP - General 03/23/22 documented as of this encounter
--- OUTSIDE RECORDS SUMMARY | 2024-11-17 09:01 | XMS_ITS | Encounter Summary ---
Author Organization Healthcare Address [address] [place] [address] Care Team Providers Care Contingents Supervisor Name Role Phone Jevon Vazquez MD Primary Care Provider [phone] Encounter Details Date Type Department Care Team ([facility] st Contact Info) Description 10/28/2024 Telephone PAV CC Hematology/BMT and Cellular Therapy Program [address] [address] Zonia Hoffman, LESSON INSTRUCTOR 800 [facility] [address] [place] [address] Social History Tobacco Use Types Packs/Day Years [...] go over her labs results Callback number: [phone] documented in this encounter Plan of Treatment Upcoming Encounters Date Type Department Care Team (Late st Contact Info) Description 11/28/2024 2:00 PM EDT Clinical Support P[facility] CC Hematology/BMT and Cellular Therapy Program 750 [facility], [address] [place] [phone] 11/28/2024 2:30 PM EDT Office Visit PAV Hematology/BMT and Cellular Therapy Program 750 [facility], [address] [place] [address] Zonia Hoffman, LESSON INSTRUCTOR 800 [facility] [address] [place] [address] 11/28/2024 4:00 PM EDT Appointment [facility] 1 [address] [place] [address] 11/29/2024 1:00 PM EDT Appointment [facility] 1 [address] [place] [address] 11/30/2024 1:00 PM EDT Appointment [facility] 1 [address] [place] [address] 12/01/2024 1:00 PM EDT Appointment [facility] 2 [address] [place] [address] 12/02/2024 2:30 PM EDT Appointment [facility] 2 [address] [place] [address] 12/03/2024 2:00 PM EDT Appointment [facility] 1 [address] [place] [address] 12/04/2024 1:00 PM EDT Appointment [facility] Infusion [address] [place] [address] documented as of this encounter Visit Diagnoses Not on filedocumented in this encounter Additional Health Concerns Assessment Noted Time A fall risk assessment has been complete d for the patient 09/30/2024 9:33 AM EDT A Body Mass Index follow-up plan has been documented for the patient 05/28/2024 1:52 PM EST documented as of this encounter Care Teams Contingents Supervisor Relationship Specialty Start Date End Date Jevon Vazquez MD [address] [place] [address] #1 #1 [place] [address] PCP - General 03/23/22 documented as of this encounter
--- OUTSIDE RECORDS SUMMARY | 2024-11-17 09:01 | XMS_ITS | Encounter Summary ---
Author Organization Healthcare Address [address] [place] [address] Care Team Providers Care Core Java Engineer Name Role Phone Jevon Vazquez MD Primary Care Provider [phone] Encounter Details Date Type Department Care Team [...] Hematology/BMT and Cellular Therapy Program [address] [address] 11/28/2024 2:30 PM EDT Office Visit P[facility] CC Hematology/BMT and Cellular Therapy Program [address] [address] Zonia Hoffman, POWER GENERATION TECHNICIAN 800 [facility] [address] [place] [address] 11/28/2024 4:00 PM EDT Appointment [facility] 1 [address] [place] [address] 11/29/2024 1:00 PM EDT Appointment [facility] 1 [address] [place] [address] 11/30/2024 1:00 PM EDT Appointment [facility] 1 [address] [place] [address] 12/01/2024 1:00 PM EDT Appointment [facility] 2 [address] [place] [address] 12/02/2024 2:30 PM EDT Appointment [facility] 2 [address] [place] [address] 12/03/2024 2:00 PM EDT Appointment [facility] 1 [address] [place] [address] 12/04/2024 1:00 PM EDT Appointment [facility] Infusion 800 [place] [address] documented as of this encounter Visit Diagnoses Not on filedocumented in this encounter Additional Health Concerns Assessment Noted Time A fall risk assessment has been complete d for the patient 09/30/2024 9:33 AM EDT A Body Mass Index follow-up plan has been documented for the patient 05/28/2024 1:52 PM EST documented as of this encounter Care Teams Core Java Engineer Relationship Specialty Start Date End Date Jevon Vazquez MD [address] [place] [address] #1 #1 [place] [address] PCP - General 03/23/22 documented as of this encounter
--- OUTSIDE RECORDS SUMMARY | 2024-11-17 09:01 | XMS_ITS | Encounter Summary ---
Author Organization [facility] Address [address] [place] [address] Care Team Providers Care Tank Washer Name Role Phone Jevon Vazquez MD Primary Care Provider [phone] Encounter Details Date Type Department Care Team ([facility] Contact Info) Description 10/08/2024 Orders Only [facility] Hematology/BMT and Cellular Therapy Program [address] [phone] 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, RN [facility] HEMATOLOGY PROGRAM CLINIC Acute myeloid leukemia [...] ([facility] Contact Info) Description 11/28/2024 2:00 PM EDT Clinical Support [facility] Hematology/BMT and Cellular Therapy Program [address] [phone] 11/28/2024 2:30 PM EDT Office Visit [facility] Hematology/BMT and Cellular Therapy Program [address] [address] Zonia Hoffman, INTERNET MARKETING CONSULTANT 800 [facility] [address] [place] [address] 11/28/2024 4:00 PM EDT Appointment [facility] [address] [place] [address] 11/29/2024 1:00 PM EDT Appointment [facility] [address] [place] [address] 11/30/2024 1:00 PM EDT Appointment [facility] 1 [address] [place] [address] 12/01/2024 1:00 PM EDT Appointment [facility] 2 [address] [place] [address] 12/02/2024 2:30 PM EDT Appointment [facility] 2 [address] [place] [address] 12/03/2024 2:00 PM EDT Appointment [facility] [address] [place] [address] 12/04/2024 1:00 PM EDT Appointment [facility] [address] [place] [address] Scheduled Orders Name Type Priority Associated Diagnoses [...] documented as of this encounter Care Teams Tank Washer Relationship Specialty Start Date End Date Jevon Vazquez MD [address] [place] [address] #1 #1 [place] [address] PCP - General 03/23/22 documented as of this encounter
--- OUTSIDE RECORDS SUMMARY | 2024-11-17 09:01 | XMS_ITS | Encounter Summary ---
Author Organization Healthcare Address [address] [place] [address] Care Team Providers Care Induction Heat Treater Name Role Phone Jevon Vazquez MD Primary Care Provider [phone] Encounter Details Date Type Department Care Team [...] Hematology/BMT and Cellular Therapy Program [address] [address] 11/28/2024 2:30 PM EDT Office Visit [facility] Hematology/BMT and Cellular Therapy Program [address] [address] Zonia Hoffman, NOZZLE TENDER 800 [facility] [address] [place] [address] 11/28/2024 4:00 PM EDT Appointment [facility] 1 [address] [place] [address] 11/29/2024 1:00 PM EDT Appointment [facility] [address] [place] [address] 11/30/2024 1:00 PM EDT Appointment [facility] 1 [address] [place] [address] 12/01/2024 1:00 PM EDT Appointment [facility] 2 [address] [place] [address] 12/02/2024 2:30 PM EDT Appointment [facility] 2 [address] [place] [address] 12/03/2024 2:00 PM EDT Appointment [facility] 1 [address] [place] [address] 12/04/2024 1:00 PM EDT Appointment [facility] [address] [place] [address] documented as of this encounter Visit Diagnoses Not on filedocumented in this encounter Additional Health Concerns Assessment Noted Time A fall risk assessment has been complete d for the patient 09/30/2024 9:33 AM EDT A Body Mass Index follow-up plan has been documented for the patient 05/28/2024 1:52 PM EST documented as of this encounter Care Teams Induction Heat Treater Relationship Specialty Start Date End Date Jevon Vazquez MD [address] [place] [address] #1 #1 [place] [address] PCP - General 03/23/22 documented as of this encounter
--- OUTSIDE RECORDS SUMMARY | 2024-11-17 09:01 | XMS_ITS | Encounter Summary ---
Author Organization Healthcare Address [address] [place] [address] Care Team Providers Care Rebar Bender Name Role Phone Jevon Vazquez MD Primary Care Provider [phone] Encounter Details Date Type Department Care Team [...] Hematology/BMT and Cellular Therapy Program [address] [address] 11/28/2024 2:30 PM EDT Office Visit [facility] Hematology/BMT and Cellular Therapy Program [address] [address] Zonia Hoffman, TRIPLE VALVE MECHANIC 800 [facility] [address] [place] [address] 11/28/2024 4:00 PM EDT Appointment [facility] 1 [address] [place] [address] 11/29/2024 1:00 PM EDT Appointment [facility] [address] [place] [address] 11/30/2024 1:00 PM EDT Appointment [facility] 1 [address] [place] [address] 12/01/2024 1:00 PM EDT Appointment [facility] 2 [address] [place] [address] 12/02/2024 2:30 PM EDT Appointment [facility] 2 [address] [place] [address] 12/03/2024 2:00 PM EDT Appointment [facility] 1 [address] [place] [address] 12/04/2024 1:00 PM EDT Appointment [facility] [address] [place] [address] documented as of this encounter Visit Diagnoses Not on filedocumented in this encounter Additional Health Concerns Assessment Noted Time A fall risk assessment has been complete d for the patient 09/30/2024 9:33 AM EDT A Body Mass Index follow-up plan has been documented for the patient 05/28/2024 1:52 PM EST documented as of this encounter Care Teams Rebar Bender Relationship Specialty Start Date End Date Jevon Vazquez MD [address] [place] [address] #1 #1 [place] [address] PCP - General 03/23/22 documented as of this encounter
--- OUTSIDE RECORDS SUMMARY | 2024-11-17 09:01 | XMS_ITS | Encounter Summary ---
Author Organization [facility] Address [address] [place] [address] Care Team Providers Care Metallurgy Laboratory Technician Name Role Phone Jevon Vazquez MD Primary Care Provider [phone] Encounter Details Date Type Department Care Team [...] Hematology/BMT and Cellular Therapy Program [address] [address] 11/28/2024 2:30 PM EDT Office Visit [facility] Hematology/BMT and Cellular Therapy Program [address] [address] Zonia Hoffman, REGIONAL EDUCATION COORDINATOR 800 [facility] [address] [place] [address] 11/28/2024 4:00 PM EDT Appointment [facility] 1 [address] [place] [address] 11/29/2024 1:00 PM EDT Appointment [facility] [address] [place] [address] 11/30/2024 1:00 PM EDT Appointment [facility] 1 [address] [place] [address] 12/01/2024 1:00 PM EDT Appointment [facility] 2 [address] [place] [address] 12/02/2024 2:30 PM EDT Appointment [facility] 2 [address] [place] [address] 12/03/2024 2:00 PM EDT Appointment [facility] 1 [address] [place] [address] 12/04/2024 1:00 PM EDT Appointment [facility] [address] [place] [address] documented as of this encounter Visit Diagnoses Not on filedocumented in this encounter Additional Health Concerns Assessment Noted Time A fall risk assessment has been complete d for the patient 09/30/2024 9:33 AM EDT A Body Mass Index follow-up plan has been documented for the patient 05/28/2024 1:52 PM EST documented as of this encounter Care Teams Metallurgy Laboratory Technician Relationship Specialty Start Date End Date Jevon Vazquez MD [address] [place] [address] #1 #1 [place] [address] PCP - General 03/23/22 documented as of this encounter
--- OUTSIDE RECORDS SUMMARY | 2024-11-17 09:01 | XMS_ITS | Clinical Summary ---
Author Organization [facility] Address [address] [place] [address] Phone Care Team Providers Care Cutter Wet Machine Name Role Phone Jevon Vazquez MD Primary Care Provider [phone] Allergies Active Allergy Reactions Criticality Noted Date [...] L4-5 LAMINECTOMY; Surgeon: Ivan Bartholomew MD; Location: [facility] MAIN OR; Service: Spine Medical History [...] 5.6 % 11/14/2022 2:57 PM EDT PREFERRED [employer] [employer] Est. Avg Glucose 148 mg/dL 11/14/2022 2:57 PM EDT [facility], [facility] Blood VENOUS BLOOD / Unknown Venipuncture / Unknown 11/11/2022 3:46 PM EDT 11/11/2022 3:55 PM EDT Narrative [facility] [employer] [facility] - 11/14/2022 2:57 PM EDT REFERENCE RANGE: Normal: 4.0-5.6% Pre-diabetes: 5.7-6.4% Provisional diagnosis of diabetes: >6.4% Hgb F>10% and anything which shortens red cell survival, such as hemolytic anemia, or unstable hemoglobin variants such as HbSS, HbSC, or HbCC, will lower the HbA1c value associated with a given level of glycemic control. us Lexi Maloney DO CHEMISTRY ORDERABLES Final R esult [facility] [employer] [facility] [address] [facility] , [place] [address] * (ABNORMAL) BASIC METABOLIC PANEL (11/11/2022 3:46 PM EDT) Sodium 136 136 - 145 mmol/L 11/11/2022 4:11 PM EDT [facility] Potassium 3.8 3.5 - 5.0 mmol/L 11/11/2022 4:11 PM EDT [facility] Chloride 102 98 - 107 mmol/L 11/11/2022 4:11 PM EDT [facility] Total CO2 24 22 - 29 mmol/L 11/11/2022 4:11 PM EDT [facility] Anion Gap 10 7 - 16 mmol/L 11/11/2022 4:11 PM EDT [facility] Calcium 10.1 8.8 - 10.4 mg/dL 11/11/2022 4:11 PM EDT [facility] Glucose Lvl 147(H) 82 - 100 mg/dL 11/11/2022 4:11 PM EDT [facility] BUN 15 8 - 23 mg/dL 11/11/2022 4:11 PM EDT [facility] Creatinine 0.82 0.51 - 1.30 mg/dL 11/11/2022 4:11 PM EDT [facility] eGFR (CKD-EPIcr 2020) 76 >=60 mL/min/1.7 3 m2 11/11/2022 4:11 PM EDT [facility] Comment:Estimated GFR was ca lculated using the CKD-EPIcr (2020) equation refit without race. The equation is recommended by the National Kidney Foundation - [place] [employer] Neph[employer] Task Force. Blood VENOUS BLOOD / Unknown Venipuncture / Unknown 11/11/2022 3:46 PM EDT 11/11/2022 3:54 PM EDT us Leona Hanna DO CHEMISTRY ORDERABLES Final Res ult [facility] [address] [place] [address] * DX BONE DENSITY AXIAL SKELETON (07/25/2022 9:14 AM EDT) Anatomical Region Laterality Modality Dexa Scan 07/25/2022 Narrative 07/25/2022 3:45 PM EDT Indication: The patient is a female age 65 or older who requires a bone density assessment. Study was performed on [employer] 5. Bone Density: Region BMD T-score Z-score [...] Most Recently Relevant to Health Maintenance [place] [address] [address] MEDICARE SUPPLEMENT MEDICARE [place] PART A AND B Member Subscriber Plan / Payer (Ef fective 2016-Present) Name:Ashly Hernández Member ID:[id number] Relation to Subscriber:Self Name:Ashly Hernández Subscriber ID:[id number] Payer ID:Not on file Group ID:Not on file Type:Not on file Address: [address] MEDICARE SUPPLEMENT MEDICARE [place] PART A [place] [address] [place] [phone] MEDICARE [place] PART A AND B Member Subscriber Plan / Payer (Ef fective 2016-Present) Name:Ashly Hernández Member ID:[id number] Relation to Subscriber:Self Name:Ashly Hernández Subscriber ID:[id number] Payer ID:Not on file Group ID:Not on file Type:Not on file Address: [address] MEDICARE SUPPLEMENT [employer] MEDICARE [place] PART A AND B [address] MEDICARE SUPPLEMENT Advance Directives For more information, please contact: [phone] * Full Code (Latest Code Status on File) Date Activated Date Inactivated Comments 11/14/2022 6:53 PM 11/16/2022 7:37 PM * Full Code Date Activated Date Inactivated Comments 11/12/2022 5:17 AM 11/14/2022 6:47 PM Care Teams Cutter Wet Machine Relationship Specialty Start Date End Date Jevon Vazquez MD [address] [place] [address] PCP - General Family Medicine 11/10/22
--- OUTSIDE RECORDS SUMMARY | 2024-11-17 09:01 | XMS_ITS | Clinical Summary ---
Author Organization [facility] Address [address] 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) 11/12/2024 Travel 11/12/2024 Telephone [facility] Cellular Therapy [facility] [address] [place] [address] [place] [phone] Zonia Hoffman, RODDY 11/11/2024 Travel 11/10/2024 Travel 11/09/2024 Travel 11/08/2024 Travel 11/08/2024 Refill [facility] Hematology/BMT and Cellular Therapy Program [address] [place] [phone] New Mckinney MD 11/07/2024 Travel 10/29/2024 Refill [facility] Hematology[facility]BMT [facility] Cellular Therapy Program [address] [phone] Zonia Hoffman, CLOTH CHECKER 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); Immunosuppressed status (CMS/HCC) 10/28/2024 Telephone [facility]ology[facility]BMT and Cellular Therapy Program [address] [place] [phone] Zonia Hoffman, CLOTH CHECKER 10/27/2024 Telephone [facility] H[facility]ology/BMT and Cellular Therapy Program [address] [phone] Zonia Hoffman, CLOTH CHECKER 10/27/2024 Travel 10/26/2024 Travel 10/24/2024 Travel 10/23/2024 Travel 10/22/2024 Travel 10/15/2024 Refill [facility] H[facility]ology/BMT [facility] Cellular Therapy Program [address] [place] [phone] New Mckinney MD 10/14/2024 Refill [facility]ology[facility]BMT [facility] Cellular Therapy Program [address] [place] [address] New Mckinney MD 10/13/2024 Telephone [facility]ology[facility]BMT [facility] Cellular Therapy Program [address] [phone] Zonia Hoffman, CLOTH CHECKER 10/13/2024 Travel 10/12/2024 Travel 10/11/2024 Travel 10/09/2024 Travel 10/08/2024 Travel 10/08/2024 Orders Only [facility] H[facility]ology/BMT and Cellular Therapy Program [address] [place] [address] 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, 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) 10/07/2024 Travel 09/30/2024 9:30 AM EDT Office Visit [facility] Hematology/BMT and Cellular Therapy Program 750 [facility], [address] [place] [address] [place] [address] Zonia Hoffman APRN 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) 09/30/2024 9:00 AM EDT Clinical Support [facility] Hematology/BMT and Cellular Therapy Program 750 [facility], [address] [place] [address] [place] [phone] Jyoti Kemp 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) 09/30/2024 Telephone [facility] Hematology/BMT and Cellular Therapy Program 750 [facility], [address] [place] [address] [place] [phone] Zoraida Good RN 09/30/2024 Travel 09/29/2024 Travel 09/28/2024 Travel 09/27/2024 Travel 09/26/2024 Travel 09/25/2024 Travel 09/24/2024 Travel 09/23/2024 Travel 09/19/2024 12:00 PM EDT Procedure Visit [facility] Hematology/BMT and Cellular Therapy Program 750 [facility], [address] [place] [address] [place] [address] Lexi Ferraro, CLOTH CHECKER 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) 09/19/2024 9:30 AM EDT Clinical Support [facility] 800 [facility], [address]nd [place] [phone] 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) 09/19/2024 7:30 AM EDT Clinical Support [facility] Hematology/BMT and Cellular Therapy Program 750 [facility], [address] [place] [address] [place] [address] 09/19/2024 Telephone [facility]ematology/BMT and Cellular Therapy Program 750 [facility], [address] [place] [phone] Romana Richmond, AKBAR 09/19/2024 Orders Only [facility] Hematology/BMT and Cellular Therapy Program [address] [place] [phone] 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 RN 09/19/2024 Travel 09/15/2024 Telephone [facility] Cellular Therapy Program [address] [place] [phone] Zonia Hoffman, CLOTH CHECKER 09/15/2024 Travel 09/14/2024 Travel 09/13/2024 Travel 09/12/2024 Travel 09/12/2024 Refill [facility] Cellular Therapy Program [address] [place] [phone] New Mckinney MD 09/11/2024 Travel 09/10/2024 Travel 09/01/2024 Telephone [facility] Cellular Therapy Program [address] [place] [phone] Zonia Hoffman, CLOTH CHECKER 08/31/2024 Travel 08/30/2024 Travel 08/18/2024 Telephone [facility]MT [facility] Cellular Therapy Program [address] [place] [phone] Romana Gorman, CLOTH CHECKER 08/17/2024 Travel from Last 3 Months Immunizations Immunization [...] Hematology/BMT and Cellular Therapy Program [address] [phone] 11/28/2024 2:30 PM EDT Office Visit [facility] H[facility]ology[facility]BMT [facility] Cellular Therapy Program [address] [phone] Zonia Hoffman, CLOTH CHECKER [address] [facility] [address] [place] [phone] 11/28/2024 4:00 PM EDT Appointment [facility] 1 [address] [place] [address] 11/29/2024 1:00 PM EDT Appointment [facility] 1 [address] [place] [address] 11/30/2024 1:00 PM EDT Appointment [facility] 1 [address] [place] [address] 12/01/2024 1:00 PM EDT Appointment [facility] 2 [address] [place] [address] 12/02/2024 2:30 PM EDT Appointment [facility] 2 [address] [place] [address] 12/03/2024 2:00 PM EDT Appointment [facility] 1 [address] [place] [address] 12/04/2024 1:00 PM EDT Appointment [facility] H Infusion [address] [place] [address] Health Maintenance Due Date Last Done Comments [...] UKY-Zoster Vaccines (1 of 2) 05/16/2023 03/21/2023 [id number] Vaccine ( - 2023- season) 2023 02/18/2021, [...] topic Medical Devices Implanted Type Area Window Glass Installer Device Identifier Shelf Expiration Date Model / Serial / Lot Port Clearvue Power 8fr - [id number] Implanted:Qty: 1 on 01/21/2024 [id number] / / Procedures Procedure Name Priority Date/Time [...] LAB HEMATOLOGY METHOD 09/30/2024 11:07 AM EDT [facility] RBC Count 1.91(L) 3.90 - 5.20 10*6/uL LAB HEMATOLOGY METHOD 09/30/2024 11:07 AM EDT [facility] HGB 7.7(L) 11.2 - 15.7 g/dL LAB HEMATOLOGY METHOD 09/30/2024 11:07 AM EDT [facility] HCT 22.8(L) 34.0 - 45.0 % LAB HEMATOLOGY METHOD 09/30/2024 11:07 AM EDT [facility] Platelet Count 17(LL) 155 - 369 10*3/uL LAB HEMATOLOGY METHOD 09/30/2024 11:07 AM EDT [facility] MCV 119(H) 79 - 98 fL LAB HEMATOLOGY METHOD 09/30/2024 11:07 AM EDT [facility] MCH 40.3(H) 26.0 - 32.0 pg LAB HEMATOLOGY METHOD 09/30/2024 11:07 AM EDT [facility] MCHC 33.8 30.7 - 35.5 g/dL LAB HEMATOLOGY METHOD 09/30/2024 11:07 AM EDT [facility] RDW 18.7(H) 11.5 - 14.5 % LAB HEMATOLOGY METHOD 09/30/2024 11:07 AM EDT [facility] MPV 11.1 8.8 - 12.5 fL LAB HEMATOLOGY METHOD 09/30/2024 11:07 AM EDT [facility] nRBC 0.0 <=0.0 per 100 WBCs LAB HEMATOLOGY METHOD 09/30/2024 11:07 AM EDT [facility] Differential Type Automated LAB HEMATOLOGY METHOD 09/30/2024 11:07 AM EDT [facility] Neutrophils % 65 % LAB HEMATOLOGY METHOD 09/30/2024 11:07 AM EDT [facility] Lymphocytes % 26 % LAB HEMATOLOGY METHOD 09/30/2024 11:07 AM EDT [facility] Monocytes % 7 % LAB HEMATOLOGY METHOD 09/30/2024 11:07 AM EDT [facility] Eosinophils % 1 % LAB HEMATOLOGY METHOD 09/30/2024 11:07 AM EDT [facility] Basophils % 1 % LAB HEMATOLOGY METHOD 09/30/2024 11:07 AM EDT [facility] Immature Granulocytes % 0 % LAB HEMATOLOGY METHOD 09/30/2024 11:07 AM EDT [facility] Neutrophils Absolute 2.17 1.60 - 6.10 10*3/uL LAB HEMATOLOGY METHOD 09/30/2024 11:07 AM EDT [facility] Lymphocytes Absolute 0.87(L) 1.20 - 3.90 10*3/uL LAB HEMATOLOGY METHOD 09/30/2024 11:07 AM EDT [facility] Monocytes Absolute 0.24(L) 0.30 - 0.90 10*3/uL LAB HEMATOLOGY METHOD 09/30/2024 11:07 AM EDT [facility] Eosinophils Absolute 0.03 0.00 - 0.50 10*3/uL LAB HEMATOLOGY METHOD 09/30/2024 11:07 AM EDT [facility] Basophils Absolute 0.02 0.00 - 0.10 10*3/uL LAB HEMATOLOGY METHOD 09/30/2024 11:07 AM EDT [facility] Immature Granulocytes Absolute 0.01 0.00 - 0.06 10*3/uL LAB HEMATOLOGY METHOD 09/30/2024 11:07 AM EDT [facility] Blood Venous blood specimen / Unknown (Port) Long-term Catheter / Unknown 09/30/2024 9:11 AM EDT 09/30/2024 9:34 AM EDT Narrative [facility] - 09/30/2024 11:07 AM EDT Therapeutic decision making should be based on absolute values, rather than percentages. us Zonia Hoffman APRN LAB BLOOD ORDERABLES Final Res ult [facility] [address] [place] [address] * (ABNORMAL) Comprehensive Metabolic Panel, Plasma (09/30/2024 9:11 AM EDT) Glucose, Plasma 135(H) 74 - 99 mg/dL 09/30/2024 10:20 AM EDT [facility] BUN, Plasma 21 8 - 23 mg/dL 09/30/2024 10:20 AM EDT [facility] Creatinine, Plasma 1.00 0.60 - 1.10 mg/dL 09/30/2024 10:20 AM EDT [facility] BUN/Creatinine Ratio 21 09/30/2024 10:20 AM EDT [facility] Sodium, Plasma 137 136 - 145 mmol/L 09/30/2024 10:20 AM EDT [facility] Potassium, Plasma 3.8 3.6 - 4.9 mmol/L 09/30/2024 10:20 AM EDT [facility] Chloride, Plasma 107 97 - 107 mmol/L 09/30/2024 10:20 AM EDT [facility] CO2, Plasma 22 22 - 29 mmol/L 09/30/2024 10:20 AM EDT [facility] Anion Gap 8 6 - 16 mmol/L 09/30/2024 10:20 AM EDT [facility] Total Calcium, Plasma 9.8 8.9 - 10.2 mg/dL 09/30/2024 10:20 AM EDT [facility] Total Protein 5.9(L) 6.3 - 7.9 g/dL 09/30/2024 10:20 AM EDT [facility] Albumin, Plasma 3.8 3.5 - 5.2 g/dL 09/30/2024 10:20 AM EDT [facility] AST, Plasma 28 10 - 35 U/L 09/30/2024 10:20 AM EDT [facility] ALT, Plasma 14 10 - 35 U/L 09/30/2024 10:20 AM EDT [facility] Alkaline Phosphatase, Plasma 34(L) 46 - 142 U/L 09/30/2024 10:20 AM EDT [facility] Total Bilirubin, Plasma 0.3 0.2 - 1.1 mg/dL 09/30/2024 10:20 AM EDT [facility] eGFRcr 59.6 mL/min/1.7 3m*2 09/30/2024 10:20 AM EDT [facility] Comment:Reported eGFRcr in m L/min/1.73m2 is based the CKD-EPI 2020 equation that does not use a race coefficient. Blood Venous blood specimen / Unknown (Port) Long-term Catheter / Unknown 09/30/2024 9:11 AM EDT 09/30/2024 9:50 AM EDT us Zonia Hoffman APRN LAB BLOOD ORDERABLES Final Res ult [facility] [address] [place] [address] * BIOPSY BONE MARROW (09/19/2024 12:00 PM [...] to surronding structures. Alternatives discussed: Delayed treatment [place] protocol: Procedure explained and questions answered to [...] Platelet count (09/19/2024 10:04 AM EDT) Pathologist [facility] [place] Platelet Count 61(L) 155 - 369 10*3/uL LAB HEMATOLOGY METHOD 09/19/2024 10:19 AM EDT [facility] Blood Blood sample taken from central line / Unknown (Port) Long-term Catheter / Unknown 09/19/2024 10:04 AM EDT 09/19/2024 10:18 AM EDT New Mckinney MD LAB BLOOD ORDERABLES Final Re sult [facility] [address] [place] [id number] * Transfuse platelets, Irradiated (09/19/2024 10:02 AM EDT) Lexi Ferraro APRN BLOOD TRANSFUSION ORDERABL ES Final Result * Prepare Leukocyte Reduced Platelets (09/19/2024 9:08 AM EDT) Pathologist [facility] [place] Product Code L2322F63 BLOO D BANK Dispense Status Transfused BLOOD BANK Blood Expiration Date [id number] BLOOD BANK Unit Number [id number] B LOOD BANK Product Blood Type 6200 BLOOD BANK Blood Type A+ BLOOD BANK us Provider Not In System BLOOD BANK PRODUCT ORD ERABLES Final Result BLOOD BANK [address] * Myeloid Focused Panel, 50 gene (09/19/2024 7:29 AM EDT) Interpretation The following two (2) genes, TP53 and DNMT3A, with persistent variants have been detected in this bone marrow specimen. The variant, p.[id number], in TP53 gene and the variant, p.[id number], in the RUNX 1 gene are not detectable at current cutoff and coverage established in this lab. Gene: TP53 Mutation: c.814G>A; p.[id number] Allele Frequency (%): 37% (45% Dec 2023) ID: [id number] Gene: DNMT3A Mutation: c.1522delC; p.[id number] 3 Allele Frequency (%): 36% (48% Dec 2023) Additional Details on Mutation Identified: Gene Transcript Genome Chrom Coordinate RefVar DNMT3A [id number] Hg19 2 [id number] delC TP53 [id number] Hg19 17 [id number] G>A 09/29/2024 4:05 PM EDT [facility] [...] then sequenced on the Illumina NextSeq 2000 ([employer] [place]). A custom bioinformatics pipeline aligns [...] of hematologic malignancies. 09/29/2024 4:05 PM EDT [facility] Disclaimer This test was developed [...] laboratory testing. 09/29/2024 4:05 PM EDT [facility] Pathologist Signature Reviewed by: Corey Tejada 09/29/2024 4:05 PM EDT [facility] Bone Marrow Specimen from bone marrow obtained by aspiration / Unknown Non-blood Collection / Unknown 09/19/2024 7:29 AM EDT 09/19/2024 12:03 PM EDT us New Mckinney MD LAB MOLECULAR DIAGNOSTICS ORD ERABLES Final Result [facility] [address] [place] [address], * Chromosome Karyotype, Oncology (09/19/2024 7:29 AM EDT) Specimen Type Bone Marrow 09/24/2024 2:37 PM EDT [facility] Clinical Indication Myelodysplastic Syndrome 09/24/2024 2:37 PM EDT [facility] Specimen Adequacy Adequate 025 2:37 PM EDT [facility] Chromosome Analysis Result Giemsa-banded metaphase cells from unstimulated bone marrow cultures showed a 46,XX[20] chromosome pattern. 09/24/2024 2:37 PM EDT [facility] Interpretation Normal female chromosome analysis. No clonal abnormalities were detected at current resolution. Clinical correlation is recommended. # cells counted = 20 # cells analyzed = 20 # cells karyotyped = 2 Band resolution: 450-525 09/24/2024 2:37 PM EDT [facility] Pathologist Signature Reviewed by: Corey Tejada 09/24/2024 2:37 PM EDT [facility] Bone Marrow Non-blood Collection / Unknown 09/19/2024 7:29 AM EDT 09/19/2024 12:35 PM EDT us New Mckinney MD LAB CYTOGENETICS ORDERABLES F inal Result [facility] [address] [place] [address] * Leukemia/Lymphoma - Immunophenotyping by Flow Cytometry (09/19/2024 7:29 AM EDT) Clinical Indication AML 09/22/2024 10:29 AM EDT [facility] Flow Cytometry Interpretation A. BONE MARROW FOR FLOW CYTOMETRY: - MIXED MARROW ELEMENTS WITH NO EVIDENCE OF INCREASED BLASTS OR ABNORMAL LYMPHOID POPULATIONS, SEE COMMENT. 09/22/2024 10:29 AM EDT [facility] Comments CD45/side scatter [...] surface light chains 09/22/2024 10:29 AM EDT [facility] Disclaimer This test [...] on the report. 09/22/2024 10:29 AM EDT [facility] Pathologist Signature Reviewed by: Lisandra Epstein MD 09/22/2024 10:29 AM EDT [facility] MRD Indicated Test Not Indicated 12/2024 10:29 AM EDT [facility] Bone Marrow Specimen from bone marrow obtained by aspiration / Unknown Non-blood Collection / Unknown 09/19/2024 7:29 AM EDT 09/19/2024 12:13 PM EDT us New Mckinney MD LAB FLOW CYTOMETRY ORDERABLES Final Result [facility] [address] [place] [address] * Bone marrow exam (09/19/2024 7:29 AM EDT) Case Report Bone Marrow Case: [id number] Authorizing Provider: New Mckinney MD Collected: 09/19/2024 0729 [facility]ing Location[facility] Hematology/BMT and Received: 09/19/2024 1216 Cellular Therapy Program Pathologist: Lisandra Epstein MD Specimens: A) - Bone Marrow Aspirate, right B) - Bone Marrow Biopsy, right C) - Peripheral Blood for Bone Marrow 3:15 PM EDT [facility] Cytogenetics Report, Addendum Chromosome Analysis Result Giemsa-banded metaphase cells from unstimulated bone marrow cultures showed a 46,XX[20] chromosome pattern. Interpretation Normal female chromosome analysis. No clonal abnormalities were detected at current resolution. Clinical correlation is recommended. 3:15 PM EDT [facility] Addendum electronically signed by Lisandra Epstein MD on 09/24/2024 at 1630 EDT Addendum Interpretation The following two (2) genes, TP53 and DNMT3A, with persistent variants have been detected in this bone marrow specimen. The variant, p.[id number], in TP53 gene and the variant, p.[id number], in the RUNX 1 gene are not detectable at current cutoff and coverage established in this lab. Gene: TP53 Mutation: c.814G>A; p.Ozi676Nrm Allele Frequency (%): 37% (45% Dec 2023) ID: [id number] Gene: DNMT3A Mutation: c.1522delC; p.[id number] 43 Allele Frequency (%): 36% (48% Dec 2023) Additional Details on Mutation Identified: 3:15 PM EDT [facility] Addendum electronically signed by Lisandra Epstein MD on 09/30/2024 at 1515 EDT Final Diagnosis PERIPHERAL BLOOD AND BONE MARROW, RIGHT POSTERIOR ILIAC CREST, (ASPIRATE SMEAR, AND CORE BIOPSY): - HYPOCELLULAR BONE MARROW WITH MARKEDLY DECREASED MEGAKARYOCYTES; NO SIGNIFICANT DYSPOIESIS OR INCREASE IN BLASTS. 3:15 PM EDT [facility] at 1453 EDT Clinical Information AML 09/14 3:15 PM EDT [facility] CBC and Differential [...] blasts are not seen. 3:15 PM EDT [facility] Bone Marrow Differential BONE MARROW DIFFERENTIAL: 200 cells Normal Patient Neutrophils 15-50 34 Metamyelocytes 4-19 3 Myelocytes 1-18 10 Promyelocytes 1-8 1 Blasts 0-2 1 Monocytes 0-5 4 Erythroid 16-38 22 Lymphocytes 3-24 13 Eosinophils 0-6 8 Basophils 0-2 0 Plasma cells 0-4 4 Other 3:15 PM EDT [facility] Bone Marrow Aspirate and [...] Bone trabeculae are unremarkable. 3:15 PM EDT [facility] Special and Immunohistochemical Stains Special Stain: A1-1 Vazquez-Giemsa A1-2 Vazquez-Giemsa A1-3 Vazquez-Giemsa C1-1 Vazquez-Giemsa IHC: B1-2 CD34 All controls show appropriate reactivity. All immunohistochemis try, in situ hybridization, and histochemical tests were developed by and are performed at the [facility], [address] [place] [address]. All tests reported here, except those addressing [...] negativity on decalcified specimens. 3:15 PM EDT [facility] Flow Cytometry Interpretation MIXED MARROW ELEMENTS WITH NO EVIDENCE OF INCREASED BLASTS OR ABNORMAL LYMPHOID POPULATIONS ([id number]). 3:15 PM EDT [facility] CYTOGENETICS/MOLECULA R INTERPRETATION Correlation with cytogenetic/molec ular analysis is suggested. 3:15 PM EDT [facility] Gross Description B. RIGHT A single specimen is received in formalin labeled bone marrow biopsy right posterior iliac crest and consists of 2 piece(s) of red/white tissue measuring 2.1/0.3 cm in length 0.2 cm in diameter. The specimen is submitted in to Histology for decalcification and routine processing. Cold Time: <1m 3:15 PM EDT [facility] Note: A resident was involved in the service. I attest I examined the relevant preparations for the specimens and confirmed the diagnosis or interpretation. 3:15 PM EDT [facility] Bone Marrow Peripheral [...] PATHOLOGY ORDERABLES Edit ed Result - Final [facility] [address] [place] [address] * Hepatitis C Antibody w/Reflex to HCV Quant PCR (01/07/2024 8:42 AM EDT) Hepatitis C Antibody Negative Negative 01/07/2024 10:13 AM EDT [facility] Blood Venous blood specimen / Unknown Venipuncture / Unknown 01/07/2024 8:42 AM EDT 01/07/2024 9:25 AM EDT us New Mckinney MD LAB BLOOD ORDERABLES Final Re sult [facility] [address] [place] [address] from Last 3 Months or Most Recently Relevant to Health Maintenance Insurance MEDICARE [facility] Care Teams Manager Chinese Relationship Specialty Start Date End Date Jevon Vazquez MD [address] [place] [address] #1 #1 [place] [id number] PCP - General 03/23/22
--- OUTSIDE RECORDS SUMMARY | 2024-11-17 09:01 | XMS_ITS | Encounter Summary ---
Author Organization Healthcare Address [address] [place] [address] Care Team Providers Care Under Ground Miner Name Role Phone Jevon Vazquez MD Primary Care Provider [phone] Encounter Details Date Type Department Care Team [...] Hematology/BMT and Cellular Therapy Program [address] [address] 11/28/2024 2:30 PM EDT Office Visit [facility] Hematology/BMT and Cellular Therapy Program [address] [phone] Zonia Hoffman, WORT EXTRACTOR 800 [facility] [address] [place] [address] 11/28/2024 4:00 PM EDT Appointment [facility] 1 [address] [place] [address] 11/29/2024 1:00 PM EDT Appointment [facility] 1 [address] [place] [address] 11/30/2024 1:00 PM EDT Appointment [facility] 1 [address] [place] [address] 12/01/2024 1:00 PM EDT Appointment [facility] 2 [address] [place] [address] 12/02/2024 2:30 PM EDT Appointment [facility] 2 [address] [place] [address] 12/03/2024 2:00 PM EDT Appointment [facility] 1 [address] [place] [address] 12/04/2024 1:00 PM EDT Appointment [facility] [address] [place] [address] documented as of this encounter Visit Diagnoses Not on filedocumented in this encounter Additional Health Concerns Assessment Noted Time A fall risk assessment has been complete d for the patient 09/19/2024 8:38 AM EDT A Body Mass Index follow-up plan has been documented for the patient 05/28/2024 1:52 PM EST documented as of this encounter Care Teams Under Ground Miner Relationship Specialty Start Date End Date Jevon Vazquez MD [address] [place] [address] #1 #1 [place] [address] PCP - General 03/23/22 documented as of this encounter
--- OUTSIDE RECORDS SUMMARY | 2024-11-17 09:01 | XMS_ITS | Encounter Summary ---
Author Organization [facility] Address [address] [place] [address] Care Team Providers Care Auto Locator Name Role Phone Jevon Vazquez MD Primary Care Provider Encounter Details Date Type Department Care Team ([facility] Contact Info) Description 11/12/2024 Telephone PAV CC Hematology/BMT and Cellular Therapy Program [address] [address] Zonia Hoffman, INSIDE SALES TERRITORY MANAGER 800 [facility] [address] [place] [phone] Social History Tobacco Use Types Packs/Day Years [...] CC Hematology/BMT and Cellular Therapy Program 750 [facility] [place] [address] 11/28/2024 2:30 PM EDT Office Visit PAV Hematology/BMT and Cellular Therapy Program 750 [facility] [place] [address] Zonia Hoffman, INSIDE SALES TERRITORY MANAGER 800 [facility] [address] [place] [address] 11/28/2024 4:00 PM EDT Appointment [facility] 1 [address] [place] [address] 11/29/2024 1:00 PM EDT Appointment [facility] 1 [address] [place] [address] 11/30/2024 1:00 PM EDT Appointment [facility] 1 [address] [place] [address] 12/01/2024 1:00 PM EDT Appointment [facility] 2 [address] [place] [address] 12/02/2024 2:30 PM EDT Appointment [facility] 2 [address] [place] [address] 12/03/2024 2:00 PM EDT Appointment [facility] 1 [address] [place] [address] 12/04/2024 1:00 PM EDT Appointment PAV Infusion 800 [place] [address] documented as of this encounter Visit Diagnoses Not on filedocumented in this encounter Additional Health Concerns Assessment Noted Time A fall risk assessment has been complete d for the patient 09/30/2024 9:33 AM EDT A Body Mass Index follow-up plan has been documented for the patient 05/28/2024 1:52 PM EST documented as of this encounter Care Teams Auto Locator Relationship Specialty Start Date End Date Jevon Vazquez MD [address] [place] [address] #1 #1 [place] [address] PCP - General 03/23/22 documented as of this encounter
--- OUTSIDE RECORDS SUMMARY | 2024-11-17 09:01 | XMS_ITS | Encounter Summary ---
Author Organization Healthcare Address [address] [place] [address] Care Team Providers Care Children'S Nursery Assistant Name Role Phone Jevon Vazquez MD Primary Care Provider [phone] Encounter Details Date Type Department Care Team [...] Hematology/BMT and Cellular Therapy Program [address] [address] 11/28/2024 2:30 PM EDT Office Visit PAV CC Hematology/BMT and Cellular Therapy Program [address] [address] Zonia Hoffman, WOOD ROOM SUPERVISOR 800 [facility] [address] [place] [address] 11/28/2024 4:00 PM EDT Appointment [facility] 1 [address] [place] [address] 11/29/2024 1:00 PM EDT Appointment [facility] 1 [address] [place] [address] 11/30/2024 1:00 PM EDT Appointment [facility] 1 [address] [place] [address] 12/01/2024 1:00 PM EDT Appointment [facility] 2 [address] [place] [address] 12/02/2024 2:30 PM EDT Appointment [facility] 2 [address] [place] [address] 12/03/2024 2:00 PM EDT Appointment [facility] 1 [address] [place] [address] 12/04/2024 1:00 PM EDT Appointment [facility] Infusion 800 [place] [address] documented as of this encounter Visit Diagnoses Not on filedocumented in this encounter Additional Health Concerns Assessment Noted Time A fall risk assessment has been complete d for the patient 09/19/2024 8:38 AM EDT A Body Mass Index follow-up plan has been documented for the patient 05/28/2024 1:52 PM EST documented as of this encounter Care Teams Children'S Nursery Assistant Relationship Specialty Start Date End Date Jevon Vazquez MD [address] [place] [address] #1 #1 [place] [address] PCP - General 03/23/22 documented as of this encounter
--- OUTSIDE RECORDS SUMMARY | 2024-11-17 09:01 | XMS_ITS | Encounter Summary ---
Author Organization [facility] Address [address] [place] [address] Care Team Providers Care Interventional Neuroradiologist Name Role Phone Jevon Vazquez MD Primary Care Provider [phone] Reason for Visit * Reason Comments Med Refill Encounter Details Date Type Department Care Team ([facility] Contact Info) Description 10/15/2024 Refill PAV CC Hematology/BMT and Cellular Therapy Program [address] [phone] [place]in[place] MD [facility] [address] [place] [address] Social History Tobacco Use Types Packs/Day Years [...] Team ([facility] Contact Info) Description 11/28/2024 2:00 PM EDT Clinical Support PAV CC Hematology/BMT and Cellular Therapy Program [address] [address] 11/28/2024 2:30 PM EDT Office Visit PAV CC Hematology/BMT and Cellular Therapy Program [address] [address] Zonia Hoffman, VEST BUSHELER [address] [facility] [address] [place] [address] 11/28/2024 4:00 PM EDT Appointment [facility] 1 [address] [place] [address] 11/29/2024 1:00 PM EDT Appointment [facility] 1 [address] [place] [address] 11/30/2024 1:00 PM EDT Appointment [facility] 1 [address] [place] [address] 12/01/2024 1:00 PM EDT Appointment [facility] 2 [address] [place] [address] 12/02/2024 2:30 PM EDT Appointment [facility] 2 [address] [place] [address] 12/03/2024 2:00 PM EDT Appointment [facility] 1 [address] [place] [address] 12/04/2024 1:00 PM EDT Appointment [facility] Infusion 800 [place] [address] documented as of this encounter Visit Diagnoses Not on filedocumented in this encounter Additional Health Concerns Assessment Noted Time A fall risk assessment has been complete d for the patient 09/30/2024 9:33 AM EDT A Body Mass Index follow-up plan has been documented for the patient 05/28/2024 1:52 PM EST documented as of this encounter Care Teams Interventional Neuroradiologist Relationship Specialty Start Date End Date Jevon Vazquez MD [address] [place] [address] #1 #1 [place] [address] PCP - General 03/23/22 documented as of this encounter
--- OUTSIDE RECORDS SUMMARY | 2024-11-17 09:01 | XMS_ITS | Encounter Summary ---
Author Organization Healthcare Address [address] [place] [address] Care Team Providers Care Specialty Trimmer Name Role Phone Jevon Vazquez MD Primary Care Provider [phone] Encounter Details Date Type Department Care Team [...] Hematology/BMT and Cellular Therapy Program [address] [address] 11/28/2024 2:30 PM EDT Office Visit PAV CC Hematology/BMT and Cellular Therapy Program [address] [address] Zonia Hoffman, BORING MILL SET UP OPERATOR 800 [facility] [address] [place] [address] 11/28/2024 4:00 PM EDT Appointment [facility] 1 [address] [place] [address] 11/29/2024 1:00 PM EDT Appointment [facility] 1 [address] [place] [address] 11/30/2024 1:00 PM EDT Appointment [facility] 1 [address] [place] [address] 12/01/2024 1:00 PM EDT Appointment [facility] 2 [address] [place] [address] 12/02/2024 2:30 PM EDT Appointment [facility] 2 [address] [place] [address] 12/03/2024 2:00 PM EDT Appointment [facility] 1 [address] [place] [address] 12/04/2024 1:00 PM EDT Appointment [facility] Infusion 800 [place] [address] documented as of this encounter Visit Diagnoses Not on filedocumented in this encounter Additional Health Concerns Assessment Noted Time A fall risk assessment has been complete d for the patient 09/30/2024 9:33 AM EDT A Body Mass Index follow-up plan has been documented for the patient 05/28/2024 1:52 PM EST documented as of this encounter Care Teams Specialty Trimmer Relationship Specialty Start Date End Date Jevon Vazquez MD [address] [place] [address] #1 #1 [place] [address] PCP - General 03/23/22 documented as of this encounter
--- OUTSIDE RECORDS SUMMARY | 2024-11-17 09:01 | XMS_ITS | Encounter Summary ---
Author Organization [facility] Address [address] [place] [address] Care Team Providers Care Assistant Construction Superintendent Name Role Phone Jevon Vazquez MD Primary Care Provider [phone] Encounter Details Date Type Department Care Team ([facility] Contact Info) Description 11/13/2024 Orders Only PAV CC Hematology/BMT and Cellular Therapy Program [address] [address] 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, RN [facility] Acute myeloid leukemia not [...] Hematology/BMT and Cellular Therapy Program [address] [address] 11/28/2024 2:30 PM EDT Office Visit PAV CC Hematology/BMT and Cellular Therapy Program [address] [address] Zoina Hoffman, ELEVATOR SERVICEMAN 800 [facility] [address] [place] [address] 11/28/2024 4:00 PM EDT Appointment [facility] 1 [address] [place] [address] 11/29/2024 1:00 PM EDT Appointment [facility] 1 [address] [place] [address] 11/30/2024 1:00 PM EDT Appointment [facility] 1 [address] [place] [address] 12/01/2024 1:00 PM EDT Appointment [facility] 2 [address] [place] [address] 12/02/2024 2:30 PM EDT Appointment [facility] 2 [address] [place] [address] 12/03/2024 2:00 PM EDT Appointment [facility] 1 [address] [place] [address] 12/04/2024 1:00 PM EDT Appointment PAV H Infusion [address] [place] [address] Scheduled Orders Name Type Priority Associated Diagnoses Orde r Schedule CBC and Differential Lab Routine 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) 3x a week and PRN for 999 Occurrences starting 11/13/2024 until 05/16/2026 Comprehensive Metabolic Panel, Plasma Lab Routine 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
[2024-11-17 09:14] LABS: Hematocrit 24.9 % (37.0-47.0); Hemoglobin 8.6 g/dL (12.2-16.2); Immature Granulocytes % 0 %; Mean Corpuscular HGB Conc 34.5 g/dL (31.8-35.4); Mean Corpuscular Hemoglobin 34.8 pg (27.0-31.2); Mean Corpuscular Volume 100.8 fl (81-99); Nucleated Red Blood Cells % 0 %; Red Blood Count 2.47 M/mm3 (4.20-5.40); White Blood Count 2.4 K/mm3 (4.8-10.8)
[2024-11-17 09:20] LABS: Albumin Level 2.9 g/dl (3.5-5.0); Chloride 104 mmol/L (98-107); Potassium 3.9 mmoL/L (3.5-5.1); Sodium 133 mmol/L (136-145)
[2024-11-17 09:22] LABS: Platelet Count 16 K/mm3 (142-424)
[2024-11-17 09:23] LABS: Alanine Aminotransferase 13 U/L (12-78); Albumin/Globulin Ratio 1.0 (1.1-1.8); Alkaline Phosphatase 42 U/L (38-126); Anion Gap 7.9 mEq/L (5-15); Aspartate Amino Transferase 32 U/L (14-36); Bilirubin,Total 0.2 mg/dl (0.2-1.3); Blood Urea Nitrogen 26 mg/dl (7-17); Carbon Dioxide 25 mmol/L (22.0-30.0); Creatinine Clearance Estimated 41 mL/min (50-200); Creatinine,Serum 1.10 mg/dl (0.52-1.04); Estimated Glomerular Filt Rate 49 ml/min (>60); GFR (African American) 59 ML/MIN (>60); Globulin 2.9 g/dL (1.3-3.2); Total Protein,Serum 5.8 g/dl (6.3-8.2)
[2024-11-17 09:24] LABS: Calcium 9.7 mg/dl (8.4-10.2); Glucose 138 mg/dl (74-100)
[2024-11-17] MEDS: SODIUM CHLORIDE 0.9% 10ML FLUSH SYRINGE 10 ML IV (09:35)
== END 2024-11-17 09:35 | disposition home or self-care (01) ==
LOC: INF 08:55
PROVIDERS: PCP Family Medicine; Visit Provider Internal Medicine Medical Oncology
DX: C92.00 Acute myeloblastic leukemia, not having achieved remission (principal)
CPT/HCPCS: 36591; 80053; 85025; J1642

== ENCOUNTER 2024-11-20 08:58 | Outpatient (CLI) | payer MEDICARE, BC, SELFPAY ==
--- OUTSIDE RECORDS SUMMARY | 2024-09-19 12:00 | XMS_ITS | Encounter Summary ---
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) Procedures Leukemia/Lymphoma - Immunophenotyping by Flow Cytometry New Mckinney MD [address] [facility] Cancer [address] [address] Phone: tel: fax: Referral ID Status Reason Start Date Expiration Date V isits Requested Visits Authorized [id number] Authorized 09/11/2024 03/13/2026 1 1 Encounter Details Date Type Department Care Team (Latest Contact Info) Description 09/19/2024 12:00 PM EDT Procedure Visit [facility] Hematology/BMT and Cellular Therapy Program [address] [address] Lexi Ferraro, RODDY [address] [facility] Cancer [address] [address] Acute myeloid leukemia not having [...] to surronding structures. Alternatives discussed: Delayed treatment Dickens protocol: Procedure explained and questions answered to [...] Upcoming Encounters Date Type Department Care Team ([facility] Contact Info) Description 11/28/2024 2:00 PM EDT Clinical Support [facility] Hematology/BMT and Cellular Therapy Program [address] [address] 11/28/2024 2:30 PM EDT Office Visit [facility] Hematology/BMT and Cellular Therapy Program [address] [address] Zonia Hoffman APRN [address] [facility] Cancer Ctr [address] [place] [phone] 11/28/2024 4:00 PM EDT Appointment [facility] Infusion Clinic [address] [place] [address] 11/29/2024 1:00 PM EDT Appointment [facility] Infusion Clinic [address] [place] [address] 11/30/2024 1:00 PM EDT Appointment [facility] Infusion Clinic [address] [place] [address] 12/01/2024 1:00 PM EDT Appointment [facility] [address] [place] [address] 12/02/2024 2:30 PM EDT Appointment [facility] [address] [place] [address] 12/03/2024 2:00 PM EDT Appointment [facility] [address] [place] [address] 12/04/2024 1:00 PM EDT Appointment [facility] [address] [place] [address] documented as of this encounter Procedures Procedure [...] PM Biopsy bone marrow Performed by: Lexi Ferarro APRN Authorized by: Lexi Ferraro APRN Consent: Consent obtained: Written Consent given by: Patient Risks, benefits, and alternatives were discussed: yes Procedural risks discussed: pain, infectection, bleeding, nerve damage, hematoma, bruising, damage to surronding structures. Alternatives discussed: Delayed treatment Dickens protocol: Procedure explained and questions answered to [...] Type Bone Marrow 09/24/2024 2:37 PM EDT [facility] Clinical Indication Myelodysplastic Syndrome 09/24/2024 2:37 PM EDT [facility] Specimen Adequacy Adequate 025 2:37 PM EDT [facility] Chromosome Analysis Result Giemsa-banded metaphase cells from unstimulated bone marrow cultures showed a 46,XX[20] chromosome pattern. 09/24/2024 2:37 PM EDT [facility] Interpretation Normal female chromosome analysis. No clonal abnormalities were detected at current resolution. Clinical correlation is recommended. # cells counted = 20 # cells analyzed = 20 # cells karyotyped = 2 Band resolution: 450-525 09/24/2024 2:37 PM EDT [facility] Pathologist Signature Reviewed by: Corey Tejada 09/24/2024 2:37 PM EDT [facility] Bone Marrow Non-blood Collection / Unknown 09/19/2024 7:29 AM EDT 09/19/2024 12:35 PM EDT us New Mckinney MD LAB CYTOGENETICS ORDERABLES F inal Result [facility] [address] [place] [address] * Myeloid Focused Panel, 50 gene (09/19/2024 7:29 AM EDT) Interpretation The following two (2) genes, TP53 and DNMT3A, with persistent variants have been detected in this bone marrow specimen. The variant, p.[id number], in TP53 gene and the variant, p.[id number], in the RUNX 1 gene are not detectable at current cutoff and coverage established in this lab. Gene: TP53 Mutation: c.814G>A; p.Zai761Ctk Allele Frequency (%): 37% (45% Dec 2023) ID: [id number] Gene: DNMT3A Mutation: c.1522delC; p.[id number] 3 Allele Frequency (%): 36% (48% Dec 2023) Additional Details on Mutation Identified: Gene Transcript Genome Chrom Coordinate RefVar DNMT3A [id number] Hg19 2 [id number] delC TP53 [id number] Hg19 17 [id number] G>A 09/29/2024 4:05 PM EDT [facility] Methodology The following 50 genes were [...] then sequenced on the Illumina NextSeq 2000 ([employer], [place]). A custom bioinformatics pipeline aligns [...] of hematologic malignancies. 09/29/2024 4:05 PM EDT [facility] Disclaimer This test was developed and its performance characteristics determined by the Clinical Molecular and Genomic Pathology Laboratory at the [facility]. It has not been cleared [...] testing. 09/29/2024 4:05 PM EDT [facility] Pathologist Signature Reviewed by: Corey Tejada 09/29/2024 4:05 PM EDT [facility] Bone Marrow Specimen from bone marrow obtained by aspiration / Unknown Non-blood Collection / Unknown 09/19/2024 7:29 AM EDT 09/19/2024 12:03 PM EDT us New Mckinney MD LAB MOLECULAR DIAGNOSTICS ORD ERABLES Final Result [facility] [place] [address], * Leukemia/Lymphoma - Immunophenotyping by Flow Cytometry (09/19/2024 7:29 AM EDT) Clinical Indication AML 09/22/2024 10:29 AM EDT [facility] Flow Cytometry Interpretation A. BONE MARROW FOR FLOW CYTOMETRY: - MIXED MARROW ELEMENTS WITH NO EVIDENCE OF INCREASED BLASTS OR ABNORMAL LYMPHOID POPULATIONS, SEE COMMENT. 09/22/2024 10:29 AM EDT [facility] Comments CD45/side scatter analysis shows a pattern [...] surface light chains 09/22/2024 10:29 AM EDT [facility] Disclaimer This test was developed and its performance characteristics determined by the Immuno-Molecular Pathology Laboratory at the [facility]. It has not been cleared [...] on the report. 09/22/2024 10:29 AM EDT [facility] Pathologist Signature Reviewed by: Lisandra Epstein MD 09/22/2024 10:29 AM EDT [facility] MRD Indicated Test Not Indicated 12/2024 10:29 AM EDT [facility] Bone Marrow Specimen from bone marrow obtained by aspiration / Unknown Non-blood Collection / Unknown 09/19/2024 7:29 AM EDT 09/19/2024 12:13 PM EDT us New Mckinney MD LAB FLOW CYTOMETRY ORDERABLES Final Result [facility] [address] [place] [address] * (ABNORMAL) CBC and differential (09/19/2024 7:29 AM EDT) WBC Count 2.70(L) 3.70 - 10.30 10*3/uL LAB HEMATOLOGY METHOD 09/19/2024 9:13 AM EDT [facility] RBC Count 1.86(L) 3.90 - 5.20 10*6/uL LAB HEMATOLOGY METHOD 09/19/2024 9:13 AM EDT [facility] HGB 7.1(L) 11.2 - 15.7 g/dL LAB HEMATOLOGY METHOD 09/19/2024 9:13 AM EDT [facility] HCT 21.5(L) 34.0 - 45.0 % LAB HEMATOLOGY METHOD 09/19/2024 9:13 AM EDT [facility] Platelet Count 14(LL) 155 - 369 10*3/uL LAB HEMATOLOGY METHOD 09/19/2024 9:13 AM EDT [facility] MCV 116(H) 79 - 98 fL LAB HEMATOLOGY METHOD 09/19/2024 9:13 AM EDT [facility] MCH 38.2(H) 26.0 - 32.0 pg LAB HEMATOLOGY METHOD 09/19/2024 9:13 AM EDT [facility] MCHC 33.0 30.7 - 35.5 g/dL LAB HEMATOLOGY METHOD 09/19/2024 9:13 AM EDT [facility] RDW 21.8(H) 11.5 - 14.5 % LAB HEMATOLOGY METHOD 09/19/2024 9:13 AM EDT [facility] MPV 13.5(H) 8.8 - 12.5 fL LAB HEMATOLOGY METHOD 09/19/2024 9:13 AM EDT [facility] nRBC 0.0 <=0.0 per 100 WBCs LAB HEMATOLOGY METHOD 09/19/2024 9:13 AM EDT [facility] Differential Type Automated LAB HEMATOLOGY METHOD 09/19/2024 9:13 AM EDT [facility] Neutrophils % 51 % LAB HEMATOLOGY METHOD 09/19/2024 9:13 AM EDT [facility] Lymphocytes % 41 % LAB HEMATOLOGY METHOD 09/19/2024 9:13 AM EDT [facility] Monocytes % 7 % LAB HEMATOLOGY METHOD 09/19/2024 9:13 AM EDT [facility] Eosinophils % 1 % LAB HEMATOLOGY METHOD 09/19/2024 9:13 AM EDT [facility] Basophils % 0 % LAB HEMATOLOGY METHOD 09/19/2024 9:13 AM EDT [facility] Immature Granulocytes % 0 % LAB HEMATOLOGY METHOD 09/19/2024 9:13 AM EDT [facility] Neutrophils Absolute 1.35(L) 1.60 - 6.10 10*3/uL LAB HEMATOLOGY METHOD 09/19/2024 9:13 AM EDT [facility] Lymphocytes Absolute 1.10(L) 1.20 - 3.90 10*3/uL LAB HEMATOLOGY METHOD 09/19/2024 9:13 AM EDT [facility] Monocytes Absolute 0.20(L) 0.30 - 0.90 10*3/uL LAB HEMATOLOGY METHOD 09/19/2024 9:13 AM EDT [facility] Eosinophils Absolute 0.03 0.00 - 0.50 10*3/uL LAB HEMATOLOGY METHOD 09/19/2024 9:13 AM EDT [facility] Basophils Absolute 0.01 0.00 - 0.10 10*3/uL LAB HEMATOLOGY METHOD 09/19/2024 9:13 AM EDT [facility] Immature Granulocytes Absolute 0.01 0.00 - 0.06 10*3/uL LAB HEMATOLOGY METHOD 09/19/2024 9:13 AM EDT [facility] Blood Blood sample taken from central line / Unknown (Port) Long-term Catheter / Unknown 09/19/2024 7:29 AM EDT 09/19/2024 8:08 AM EDT Narrative [facility] - 09/19/2024 9:13 AM EDT Therapeutic decision making should be based on absolute values, rather than percentages. New Mckinney MD LAB BLOOD ORDERABLES Final Re sult [facility] [address] [place] [address] * Bone marrow exam (09/19/2024 7:29 AM EDT) Case Report Bone Marrow Case: [id number] Authorizing Provider: New Mckinney MD Collected: 09/19/2024 0729 Ordering Location: [facility] Hematology/BMT and Received: 09/19/2024 1216 Cellular Therapy Program Pathologist: Lisandra Epstein MD Specimens: A) - Bone Marrow Aspirate, right B) - Bone Marrow Biopsy, right C) - Peripheral Blood for Bone Marrow 3:15 PM EDT [facility] Cytogenetics Report, Addendum Chromosome Analysis Result Giemsa-banded metaphase cells from unstimulated bone marrow cultures showed a 46,XX[20] chromosome pattern. Interpretation Normal female chromosome analysis. No clonal abnormalities were detected at current resolution. Clinical correlation is recommended. 3:15 PM EDT [facility] Addendum electronically signed by Lisandra Epstein MD on 09/24/2024 at 1630 EDT Addendum Interpretation The following two (2) genes, TP53 and DNMT3A, with persistent variants have been detected in this bone marrow specimen. The variant, p.[id number], in TP53 gene and the variant, p.[id number], in the RUNX 1 gene are not detectable at current cutoff and coverage established in this lab. Gene: TP53 Mutation: c.814G>A; p.Hni252Mic Allele Frequency (%): 37% (45% Dec 2023) ID: [id number] Gene: DNMT3A Mutation: c.1522delC; p.[id number] 43 Allele Frequency (%): 36% (48% Dec 2023) Additional Details on Mutation Identified: 3:15 PM EDT [facility] Addendum electronically signed by Lisandra Epstein MD on 09/30/2024 at 1515 EDT Final Diagnosis PERIPHERAL BLOOD AND BONE MARROW, RIGHT POSTERIOR ILIAC CREST, (ASPIRATE SMEAR, AND CORE BIOPSY): - HYPOCELLULAR BONE MARROW WITH MARKEDLY DECREASED MEGAKARYOCYTES; NO SIGNIFICANT DYSPOIESIS OR INCREASE IN BLASTS. 5 3:15 PM EDT [facility] at 1453 EDT Clinical Information AML 09/14 5 3:15 PM EDT [facility] CBC and Differential PERIPHERAL [...] blasts are not seen. 3:15 PM EDT [facility] Bone Marrow Differential BONE MARROW DIFFERENTIAL: 200 cells Normal Patient Neutrophils 15-50 34 Metamyelocytes 4-19 3 Myelocytes 1-18 10 Promyelocytes 1-8 1 Blasts 0-2 1 Monocytes 0-5 4 Erythroid 16-38 22 Lymphocytes 3-24 13 Eosinophils 0-6 8 Basophils 0-2 0 Plasma cells 0-4 4 Other 5 3:15 PM EDT [facility] Bone Marrow Aspirate and [...] Bone trabeculae are unremarkable. 3:15 PM EDT [facility] Special and Immunohistochemical Stains Special Stain: A1-1 Vazquez-Giemsa A1-2 Vazquez-Giemsa A1-3 Vazquez-Giemsa C1-1 Vazquez-Giemsa IHC: B1-2 CD34 All controls show appropriate reactivity. All immunohistochemis try, in situ hybridization, and histochemical tests were developed by and are performed at the [facility], [address] [place] [address]. All tests reported here, except those addressing [...] negativity on decalcified specimens. 3:15 PM T [facility] Flow Cytometry Interpretation MIXED MARROW ELEMENTS WITH NO EVIDENCE OF INCREASED BLASTS OR ABNORMAL LYMPHOID POPULATIONS ([id number]). 3:15 PM EDT [facility] CYTOGENETICS/MOLECULA R INTERPRETATION Correlation with cytogenetic/molec ular analysis is suggested. 3:15 PM EDT [facility] Gross Description B. RIGHT A single specimen is received in formalin labeled bone marrow biopsy right posterior iliac crest and consists of 2 piece(s) of red/white tissue measuring 2.1/0.3 cm in length 0.2 cm in diameter. The specimen is submitted in to Histology for decalcification and routine processing. Cold Time: <1m 3:15 PM T [facility] Note: A resident was involved in the service. I attest I examined the relevant preparations for the specimens and confirmed the diagnosis or interpretation. 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
--- OUTSIDE RECORDS SUMMARY | 2024-09-30 09:00 | XMS_ITS | Encounter Summary ---
Author Organization Healthcare Address [address] [place] [address] Care Team Providers Care Product Safety Compliance Leader Name Role Phone Jevon Vazquez MD Primary Care Provider [phone] Reason for Visit * Reason Comments Labs Only Encounter Details Date Type Department Care Team ([facility] Contact Info) Description 09/30/2024 9:00 AM EDT Clinical Support [facility] Hematology/BMT and Cellular Therapy Program [address] [phone] Jyoti Kemp Acute myeloid leukemia not having [...] Date Type Department Care Team ([facility] Contact Info) Description 11/28/2024 2:00 PM EDT Clinical Support [facility] Hematology/BMT and Cellular Therapy Program [address] [phone] 11/28/2024 2:30 PM EDT Office Visit [facility] Hematology/BMT and Cellular Therapy Program [address] [phone] Zonia Hoffman, WASTE HAND 800 [facility] [address] [place] [phone] 11/28/2024 4:00 PM EDT Appointment [facility] [address] [place] [address] 11/29/2024 1:00 PM EDT Appointment [facility] [address] [place] [address] 11/30/2024 1:00 PM EDT Appointment [facility] [address] [place] [address] 12/01/2024 1:00 PM EDT Appointment [facility] [address] [place] [address] 12/02/2024 2:30 PM EDT Appointment [facility] [address] [place] [address] 12/03/2024 2:00 PM EDT Appointment [facility] [address] [place] [address] 12/04/2024 1:00 PM EDT Appointment [facility] [address] [place] [address] documented as of this encounter Procedures Procedure [...] - 99 mg/dL 09/30/2024 10:20 AM EDT [facility] BUN, Plasma 21 8 - 23 mg/dL 09/30/2024 10:20 AM EDT [facility] Creatinine, Plasma 1.00 0.60 - 1.10 mg/dL 09/30/2024 10:20 AM EDT [facility] BUN/Creatinine Ratio 21 09/30/2024 10:20 AM EDT [facility] Sodium, Plasma 137 136 - 145 mmol/L 09/30/2024 10:20 AM EDT [facility] Potassium, Plasma 3.8 3.6 - 4.9 mmol/L 09/30/2024 10:20 AM EDT [facility] Chloride, Plasma 107 97 - 107 mmol/L 09/30/2024 10:20 AM EDT [facility] CO2, Plasma 22 22 - 29 mmol/L 09/30/2024 10:20 AM EDT [facility] Anion Gap 8 6 - 16 mmol/L 09/30/2024 10:20 AM EDT [facility] Total Calcium, Plasma 9.8 8.9 - 10.2 mg/dL 09/30/2024 10:20 AM EDT [facility] Total Protein 5.9(L) 6.3 - 7.9 g/dL 09/30/2024 10:20 AM EDT [facility] Albumin, Plasma 3.8 3.5 - 5.2 g/dL 09/30/2024 10:20 AM EDT [facility] AST, Plasma 28 10 - 35 U/L 09/30/2024 10:20 AM EDT [facility] ALT, Plasma 14 10 - 35 U/L 09/30/2024 10:20 AM EDT [facility] Alkaline Phosphatase, Plasma 34(L) 46 - 142 U/L 09/30/2024 10:20 AM EDT [facility] Total Bilirubin, Plasma 0.3 0.2 - 1.1 mg/dL 09/30/2024 10:20 AM EDT [facility] eGFRcr 59.6 mL/min/1.7 3m*2 09/30/2024 10:20 AM EDT [facility] Comment:Reported eGFRcr in m L/min/1.73m2 is based the CKD-EPI 2020 equation that does not use a race coefficient. Blood Venous blood specimen / Unknown (Port) Long-term Catheter / Unknown 09/30/2024 9:11 AM EDT 09/30/2024 9:50 AM EDT us Zonia Hoffman WASTE HAND LAB BLOOD ORDERABLES Final Res ult [facility] [address] [place] [address] * (ABNORMAL) CBC and Differential (09/30/2024 9:11 AM EDT) WBC Count 3.34(L) 3.70 - 10.30 10*3/uL LAB HEMATOLOGY METHOD 09/30/2024 11:07 AM EDT [facility] RBC Count 1.91(L) 3.90 - 5.20 10*6/uL LAB HEMATOLOGY METHOD 09/30/2024 11:07 AM EDT [facility] HGB 7.7(L) 11.2 - 15.7 g/dL LAB HEMATOLOGY METHOD 09/30/2024 11:07 AM EDT [facility] HCT 22.8(L) 34.0 - 45.0 % LAB HEMATOLOGY METHOD 09/30/2024 11:07 AM EDT [facility] Platelet Count 17(LL) 155 - 369 10*3/uL LAB HEMATOLOGY METHOD 09/30/2024 11:07 AM EDT [facility] MCV 119(H) 79 - 98 fL LAB HEMATOLOGY METHOD 09/30/2024 11:07 AM EDT [facility] MCH 40.3(H) 26.0 - 32.0 pg LAB HEMATOLOGY METHOD 09/30/2024 11:07 AM EDT [facility] MCHC 33.8 30.7 - 35.5 g/dL LAB HEMATOLOGY METHOD 09/30/2024 11:07 AM EDT [facility] RDW 18.7(H) 11.5 - 14.5 % LAB HEMATOLOGY METHOD 09/30/2024 11:07 AM EDT [facility] MPV 11.1 8.8 - 12.5 fL LAB HEMATOLOGY METHOD 09/30/2024 11:07 AM EDT [facility] nRBC 0.0 <=0.0 per 100 WBCs LAB HEMATOLOGY METHOD 09/30/2024 11:07 AM EDT [facility] Differential Type Automated LAB HEMATOLOGY METHOD 09/30/2024 11:07 AM EDT [facility] Neutrophils % 65 % LAB HEMATOLOGY METHOD 09/30/2024 11:07 AM EDT [facility] Lymphocytes % 26 % LAB HEMATOLOGY METHOD 09/30/2024 11:07 AM EDT [facility] Monocytes % 7 % LAB HEMATOLOGY METHOD 09/30/2024 11:07 AM EDT [facility] Eosinophils % 1 % LAB HEMATOLOGY METHOD 09/30/2024 11:07 AM EDT [facility] Basophils % 1 % LAB HEMATOLOGY METHOD 09/30/2024 11:07 AM EDT [facility] Immature Granulocytes % 0 % LAB HEMATOLOGY METHOD 09/30/2024 11:07 AM EDT [facility] Neutrophils Absolute 2.17 1.60 - 6.10 10*3/uL LAB HEMATOLOGY METHOD 09/30/2024 11:07 AM EDT [facility] Lymphocytes Absolute 0.87(L) 1.20 - 3.90 10*3/uL LAB HEMATOLOGY METHOD 09/30/2024 11:07 AM EDT [facility] Monocytes Absolute 0.24(L) 0.30 - 0.90 10*3/uL LAB HEMATOLOGY METHOD 09/30/2024 11:07 AM EDT [facility] Eosinophils Absolute 0.03 0.00 - 0.50 10*3/uL LAB HEMATOLOGY METHOD 09/30/2024 11:07 AM EDT [facility] Basophils Absolute 0.02 0.00 - 0.10 10*3/uL LAB HEMATOLOGY METHOD 09/30/2024 11:07 AM EDT [facility] Immature Granulocytes Absolute 0.01 0.00 - 0.06 10*3/uL LAB HEMATOLOGY METHOD 09/30/2024 11:07 AM EDT [facility] Blood Venous blood specimen / Unknown (Port) Long-term Catheter / Unknown 09/30/2024 9:11 AM EDT 09/30/2024 9:34 AM EDT [facility] - 09/30/2024 11:07 AM EDT Therapeutic decision making should be based on absolute values, rather than percentages. 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
--- OUTSIDE RECORDS SUMMARY | 2024-09-30 09:30 | XMS_ITS | Encounter Summary ---
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 female. Referring Physician: Zonia Hoffman, CUSTOMS COLLECTOR 800 [facility] [address] [address] Primary Care Provider: Jevon Vazquez MD Chief [...] by Dr. Manzano in [facility] for evaluation of anemia and lymphocytosis. 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 Next generation sequencing: Abnormal: TP53 (c.814G>A; p.[id number]) frequency 45%, DMNT3A (c.1522delC; p.[id number]) frequency 48%, RUNX1 (c.336_338delGCC; p.[id number]) frequency 35% Azacitidine + Venetoclax Cycle 1: [...] lab checks MWF at [facility] Allogenic transplant planning. 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 However, given her older age > 70, she would benefit from a geriatric BMT program and will make referrals should she be interested. Expected pancytopenia related to chemotherapy/AML. Check CBC x 3 times/week at [facility] Labs reviewed today, Hgb 7.7 , platelets [...] charts, reviewing results, and documenting. RODDY Cristina [facility] HEMATOLOGY/BMT AND CELLULAR THERAPY PROGRAM 800 [facility] [address] 40 minutes was spent on this encounter; [...] Upcoming Encounters Date Type Department Care Team ([facility] st Contact Info) Description 11/28/2024 2:00 PM EDT Clinical Support [facility] Hematology/BMT and Cellular Therapy Program 750 [facility], [address] [place] [address] [place] [address] 11/28/2024 2:30 PM EDT Office Visit [facility] Hematology/BMT and Cellular Therapy Program [address] [place] [address] Zonia Hoffman, CUSTOMS COLLECTOR [address] [facility] [address] [place] [address] 11/28/2024 4:00 PM EDT Appointment [facility] 1 [address] [place] [address] 11/29/2024 1:00 PM EDT Appointment [facility] 1 [address] [place] [address] 11/30/2024 1:00 PM EDT Appointment [facility] 1 [address] [place] [address] 12/01/2024 1:00 PM EDT Appointment [facility] 2 [address] [place] [address] 12/02/2024 2:30 PM EDT Appointment [facility] 2 [address] [place] [address] 12/03/2024 2:00 PM EDT Appointment [facility] 1 [address] [place] [address] 12/04/2024 1:00 PM EDT Appointment [facility] 800 [place] [address] documented as of this encounter Results * (ABNORMAL) Comprehensive Metabolic Panel, Plasma (09/30/2024 9:11 AM EDT) [facility] Glucose, Plasma 135(H) 74 - 99 mg/dL 09/30/2024 10:20 AM EDT [facility] BUN, Plasma 21 8 - 23 mg/dL 09/30/2024 10:20 AM EDT [facility] Creatinine, Plasma 1.00 0.60 - 1.10 mg/dL 09/30/2024 10:20 AM EDT [facility] BUN/Creatinine Ratio 21 09/30/2024 10:20 AM EDT [facility] Sodium, Plasma 137 136 - 145 mmol/L 09/30/2024 10:20 AM EDT [facility] Potassium, Plasma 3.8 3.6 - 4.9 mmol/L 09/30/2024 10:20 AM EDT [facility] Chloride, Plasma 107 97 - 107 mmol/L 09/30/2024 10:20 AM EDT [facility] CO2, Plasma 22 22 - 29 mmol/L 09/30/2024 10:20 AM EDT [facility] Anion Gap 8 6 - 16 mmol/L 09/30/2024 10:20 AM EDT [facility] Total Calcium, Plasma 9.8 8.9 - 10.2 mg/dL 09/30/2024 10:20 AM EDT [facility] Total Protein 5.9(L) 6.3 - 7.9 g/dL 09/30/2024 10:20 AM EDT [facility] Albumin, Plasma 3.8 3.5 - 5.2 g/dL 09/30/2024 10:20 AM EDT [facility] AST, Plasma 28 10 - 35 U/L 09/30/2024 10:20 AM EDT [facility] ALT, Plasma 14 10 - 35 U/L 09/30/2024 10:20 AM EDT [facility] Alkaline Phosphatase, Plasma 34(L) 46 - 142 U/L 09/30/2024 10:20 AM EDT [facility] Total Bilirubin, Plasma 0.3 0.2 - 1.1 mg/dL 09/30/2024 10:20 AM EDT [facility] eGFRcr 59.6 mL/min/1.7 3m*2 09/30/2024 10:20 AM EDT [facility] Comment:Reported eGFRcr in m L/min/1.73m2 is based the CKD-EPI 2020 equation that does not use a race coefficient. Blood Venous blood specimen / Unknown (Port) Long-term Catheter / Unknown 09/30/2024 9:11 AM EDT 09/30/2024 9:50 AM EDT us Zonia Hoffman APRN LAB BLOOD ORDERABLES Final Res ult [facility] 800 [place] [address] * (ABNORMAL) CBC and Differential (09/30/2024 9:11 AM EDT) WBC Count 3.34(L) 3.70 - 10.30 10*3/uL LAB HEMATOLOGY METHOD 09/30/2024 11:07 AM EDT [facility] RBC Count 1.91(L) 3.90 - 5.20 10*6/uL LAB HEMATOLOGY METHOD 09/30/2024 11:07 AM EDT [facility] HGB 7.7(L) 11.2 - 15.7 g/dL LAB HEMATOLOGY METHOD 09/30/2024 11:07 AM EDT [facility] HCT 22.8(L) 34.0 - 45.0 % LAB HEMATOLOGY METHOD 09/30/2024 11:07 AM EDT [facility] Platelet Count 17(LL) 155 - 369 10*3/uL LAB HEMATOLOGY METHOD 09/30/2024 11:07 AM EDT [facility] MCV 119(H) 79 - 98 fL LAB HEMATOLOGY METHOD 09/30/2024 11:07 AM EDT [facility] MCH 40.3(H) 26.0 - 32.0 pg LAB HEMATOLOGY METHOD 09/30/2024 11:07 AM EDT [facility] MCHC 33.8 30.7 - 35.5 g/dL LAB HEMATOLOGY METHOD 09/30/2024 11:07 AM EDT [facility] RDW 18.7(H) 11.5 - 14.5 % LAB HEMATOLOGY METHOD 09/30/2024 11:07 AM EDT [facility] MPV 11.1 8.8 - 12.5 fL LAB HEMATOLOGY METHOD 09/30/2024 11:07 AM EDT [facility] nRBC 0.0 <=0.0 per 100 WBCs LAB HEMATOLOGY METHOD 09/30/2024 11:07 AM EDT [facility] Differential Type Automated LAB HEMATOLOGY METHOD 09/30/2024 11:07 AM EDT [facility] Neutrophils % 65 % LAB HEMATOLOGY METHOD 09/30/2024 11:07 AM EDT [facility] Lymphocytes % 26 % LAB HEMATOLOGY METHOD 09/30/2024 11:07 AM EDT [facility] Monocytes % 7 % LAB HEMATOLOGY METHOD 09/30/2024 11:07 AM EDT [facility] Eosinophils % 1 % LAB HEMATOLOGY METHOD 09/30/2024 11:07 AM EDT [facility] Basophils % 1 % LAB HEMATOLOGY METHOD 09/30/2024 11:07 AM EDT [facility] Immature Granulocytes % 0 % LAB HEMATOLOGY METHOD 09/30/2024 11:07 AM EDT [facility] Neutrophils Absolute 2.17 1.60 - 6.10 10*3/uL LAB HEMATOLOGY METHOD 09/30/2024 11:07 AM EDT [facility] Lymphocytes Absolute 0.87(L) 1.20 - 3.90 10*3/uL LAB HEMATOLOGY METHOD 09/30/2024 11:07 AM EDT [facility] Monocytes Absolute 0.24(L) 0.30 - 0.90 10*3/uL LAB HEMATOLOGY METHOD 09/30/2024 11:07 AM EDT [facility] Eosinophils Absolute 0.03 0.00 - 0.50 10*3/uL LAB HEMATOLOGY METHOD 09/30/2024 11:07 AM EDT [facility] Basophils Absolute 0.02 0.00 - 0.10 10*3/uL LAB HEMATOLOGY METHOD 09/30/2024 11:07 AM EDT [facility] Immature Granulocytes Absolute 0.01 0.00 - 0.06 10*3/uL LAB HEMATOLOGY METHOD 09/30/2024 11:07 AM EDT [facility] Blood Venous blood specimen / Unknown (Port) Long-term Catheter / Unknown 09/30/2024 9:11 AM EDT 09/30/2024 9:34 AM EDT Narrative [facility] - 09/30/2024 11:07 AM EDT Therapeutic decision making should be based on absolute values, rather than percentages. us Zonia Hoffman APRN LAB BLOOD ORDERABLES Final Res ult [facility] [address] [place] [address] documented in this encounter Visit Diagnoses Diagnosis [...] documented as of this encounter Care Teams Assembly Loader Relationship Specialty Start Date End Date Jevon Vazquez MD [address] [place] [address] #1 #1 JOSEP [place] [id number] PCP - General 03/23/22 documented as of this encounter
[2024-11-20 09:00] VITALS: BMI 21.8
--- OUTSIDE RECORDS SUMMARY | 2024-11-20 09:08 | XMS_ITS | Encounter Summary ---
Author Organization Healthcare Address [address] [place] [address] Care Team Providers Care Educational Institution Curator Name Role Phone Jevon Vazquez MD Primary Care Provider [phone] Encounter Details Date Type Department Care Team [...] Hematology/BMT and Cellular Therapy Program [address] [address] 11/28/2024 2:30 PM EDT Office Visit PAV CC Hematology/BMT and Cellular Therapy Program [address] [address] Zonia Hoffman, PLATING ENGINEER 800 [facility] [address] [place] [address] 11/28/2024 4:00 PM EDT Appointment [facility] 1 [address] [place] [address] 11/29/2024 1:00 PM EDT Appointment [facility] 1 [address] [place] [address] 11/30/2024 1:00 PM EDT Appointment [facility] 1 [address] [place] [address] 12/01/2024 1:00 PM EDT Appointment [facility] 2 [address] [place] [address] 12/02/2024 2:30 PM EDT Appointment [facility] 2 [address] [place] [address] 12/03/2024 2:00 PM EDT Appointment [facility] 1 [address] [place] [address] 12/04/2024 1:00 PM EDT Appointment P[facility] Infusion 800 [place] [address] documented as of this encounter Visit Diagnoses [...] Date End Date Jevon Vazquez MD [address] [place] [address] #1 #1 [place] [address] PCP - General 03/23/22 documented as of this encounter
--- OUTSIDE RECORDS SUMMARY | 2024-11-20 09:08 | XMS_ITS | Encounter Summary ---
Author Organization Healthcare Address [address] [place] [address] Care Team Providers Care Operating Cost Clerk Name Role Phone Jevon Vazquez MD Primary Care Provider [phone] Encounter Details Date Type Department Care Team (Late Contact Info) Description 09/30/2024 Telephone PAV CC Hematology/BMT and Cellular Therapy Program [address] [place] [address] Zoraida Good, RN [facility] HEMATOLOGY PROGRAM [...] and Cellular Therapy Program 750 [facility] [address] [place] [address] [place] [address] 11/28/2024 2:30 PM EDT Office Visit PAV CC Hematology/BMT and Cellular Therapy Program 750 [facility] [place] [address] Zonia Hoffman, GOLD PLATER 800 [facility] [address] [place] [address] 11/28/2024 4:00 PM EDT Appointment [facility] 1 [address] [place] [address] 11/29/2024 1:00 PM EDT Appointment [facility] 1 [address] [place] [address] 11/30/2024 1:00 PM EDT Appointment [facility] 1 [address] [place] [address] 12/01/2024 1:00 PM EDT Appointment [facility] 2 [address] [place] [address] 12/02/2024 2:30 PM EDT Appointment [facility] 2 [address] [place] [address] 12/03/2024 2:00 PM EDT Appointment [facility] 1 [address] [place] [address] 12/04/2024 1:00 PM EDT Appointment [facility] Infusion 800 [place] [address] documented as of this encounter Visit Diagnoses Not on filedocumented in this encounter Additional Health Concerns Assessment Noted Time A fall risk assessment has been complete d for the patient 09/30/2024 9:33 AM EDT A Body Mass Index follow-up plan has been documented for the patient 05/28/2024 1:52 PM EST documented as of this encounter Care Teams Operating Cost Clerk Relationship Specialty Start Date End Date Jevon Vazqeuz MD [address] [place] [address] #1 #1 [place] [address] PCP - General 03/23/22 documented as of this encounter
--- OUTSIDE RECORDS SUMMARY | 2024-11-20 09:08 | XMS_ITS | Encounter Summary ---
Author Organization Healthcare Address [address] [place] [address] Care Team Providers Care Package Dye Stand Loader Name Role Phone Jevon Vazquez MD Primary Care Provider [phone] Encounter Details Date Type Department Care Team [...] Hematology/BMT and Cellular Therapy Program [address] [address] 11/28/2024 2:30 PM EDT Office Visit PAV CC Hematology/BMT and Cellular Therapy Program [address] [address] Zonia Hoffman, CAD DESIGN ENGINEER 800 [facility] [address] [place] [address] 11/28/2024 4:00 PM EDT Appointment [facility] 1 [address] [place] [address] 11/29/2024 1:00 PM EDT Appointment [facility] 1 [address] [place] [address] 11/30/2024 1:00 PM EDT Appointment [facility] 1 [address] [place] [address] 12/01/2024 1:00 PM EDT Appointment [facility] 2 [address] [place] [address] 12/02/2024 2:30 PM EDT Appointment [facility] 2 [address] [place] [address] 12/03/2024 2:00 PM EDT Appointment [facility] 1 [address] [place] [address] 12/04/2024 1:00 PM EDT Appointment [facility] Infusion [address] [place] [address] documented as of this encounter Visit Diagnoses Not on filedocumented in this encounter Additional Health Concerns Assessment Noted Time A fall risk assessment has been complete d for the patient 09/30/2024 9:33 AM EDT A Body Mass Index follow-up plan has been documented for the patient 05/28/2024 1:52 PM EST documented as of this encounter Care Teams Package Dye Stand Loader Relationship Specialty Start Date End Date Jevon Vazquez MD [address] [place] [address] #1 #1 [place] [address] PCP - General 03/23/22 documented as of this encounter
--- OUTSIDE RECORDS SUMMARY | 2024-11-20 09:08 | XMS_ITS | Encounter Summary ---
Author Organization Healthcare Address [address] [place] [address] Care Team Providers Care Skein Yard Drier Name Role Phone Jevon Vazquez MD Primary Care Provider [phone] Encounter Details Date Type Department Care Team [...] Hematology/BMT and Cellular Therapy Program [address] [address] 11/28/2024 2:30 PM EDT Office Visit PAV CC Hematology/BMT and Cellular Therapy Program [address] [address] Zonia Hoffman, OVEREDGE MACHINE OPERATOR 800 [facility] [address] [place] [address] 11/28/2024 4:00 PM EDT Appointment [facility] 1 [address] [place] [address] 11/29/2024 1:00 PM EDT Appointment [facility] 1 [address] [place] [address] 11/30/2024 1:00 PM EDT Appointment [facility] 1 [address] [place] [address] 12/01/2024 1:00 PM EDT Appointment [facility] 2 [address] [place] [address] 12/02/2024 2:30 PM EDT Appointment [facility] 2 [address] [place] [address] 12/03/2024 2:00 PM EDT Appointment [facility] 1 [address] [place] [address] 12/04/2024 1:00 PM EDT Appointment P[facility] Infusion [address] [place] [address] documented as of this encounter Visit Diagnoses Not on filedocumented in this encounter Additional Health Concerns Assessment Noted Time A fall risk assessment has been complete d for the patient 09/30/2024 9:33 AM EDT A Body Mass Index follow-up plan has been documented for the patient 05/28/2024 1:52 PM EST documented as of this encounter Care Teams Skein Yard Drier Relationship Specialty Start Date End Date Jevon Vazquez MD [address] [place] [address] #1 #1 [place] [address] PCP - General 03/23/22 documented as of this encounter
--- OUTSIDE RECORDS SUMMARY | 2024-11-20 09:08 | XMS_ITS | Encounter Summary ---
Author Organization [facility] Address [address] [place] [address] Care Team Providers Care Client Program Manager Name Role Phone Jevon Vazquez MD Primary Care Provider [phone] Encounter Details Date Type Department Care Team ([facility] Contact Info) Description 10/29/2024 Refill PAV CC Hematology/BMT and Cellular Therapy Program [address] [address] Zonia Hoffman, FLIGHT TEST DATA ACQUISITION TECHNICIAN 800 [facility] [address] [place] [address] Acute myeloid leukemia not having achieved remission [...] ([facility] Contact Info) Description 11/28/2024 2:00 PM EDT Clinical Support PAV CC Hematology/BMT and Cellular Therapy Program [address] [address] 11/28/2024 2:30 PM EDT Office Visit PAV CC Hematology/BMT and Cellular Therapy Program [address] [place] [address] Zonia Hoffman, FLIGHT TEST DATA ACQUISITION TECHNICIAN [address] [facility] [address] [place] [address] 11/28/2024 4:00 PM EDT Appointment [facility] 1 [address] [place] [address] 11/29/2024 1:00 PM EDT Appointment [facility] 1 [address] [place] [address] 11/30/2024 1:00 PM EDT Appointment [facility] 1 [address] [place] [address] 12/01/2024 1:00 PM EDT Appointment [facility] 2 [address] [place] [address] 12/02/2024 2:30 PM EDT Appointment [facility] 2 [address] [place] [address] 12/03/2024 2:00 PM EDT Appointment [facility] 1 [address] [place] [address] 12/04/2024 1:00 PM EDT Appointment [facility] H Infusion [address] [place] [address] documented as of this encounter Visit Diagnoses [...] as of this encounter Care Teams Client Program Manager Relationship Specialty Start Date End Date Jevon Vazquez MD [address] [place] [address] #1 #1 [place] [address] PCP - General 03/23/22 documented as of this encounter
--- OUTSIDE RECORDS SUMMARY | 2024-11-20 09:08 | XMS_ITS | Encounter Summary ---
Author Organization Healthcare Address [address] [place] [address] Care Team Providers Care Dependency Counselor Name Role Phone Jevon Vazquez MD Primary Care Provider [phone] Encounter Details Date Type Department Care Team ([facility] st Contact Info) Description 10/27/2024 Telephone PAV CC Hematology/BMT and Cellular Therapy Program [address] [address] Zonia Hoffman, HERB DIGGER 800 [facility] [address] [place] [address] Social History Tobacco Use Types Packs/Day Years [...] encounter Miscellaneous Notes * Telephone Encounter - oJrge Gordon, RN - 10/28/2024 11:20 AM EDT RN spoke with pt and discussed labs and delaying treatment. Told her I was waiting to confirm with and her new appts will be on M-Files. She verbalizes understanding. * Telephone Encounter - [...] Hematology/BMT and Cellular Therapy Program [address] [address] 11/28/2024 2:30 PM EDT Office Visit PAV Hematology/BMT and Cellular Therapy Program [address] [address] Zonia Hoffman, HERB DIGGER 800 [facility] [address] [place] [address] 11/28/2024 4:00 PM EDT Appointment [facility] 1 [address] [place] [address] 11/29/2024 1:00 PM EDT Appointment [facility] 1 [address] [place] [address] 11/30/2024 1:00 PM EDT Appointment [facility] 1 [address] [place] [address] 12/01/2024 1:00 PM EDT Appointment [facility] 2 [address] [place] [address] 12/02/2024 2:30 PM EDT Appointment [facility] 2 [address] [place] [address] 12/03/2024 2:00 PM EDT Appointment [facility] 1 [address] [place] [address] 12/04/2024 1:00 PM EDT Appointment [facility] H Infusion [address] [place] [address] documented as of this encounter Visit Diagnoses Not on filedocumented in this encounter Additional Health Concerns Assessment Noted Time A fall risk assessment has been complete d for the patient 09/30/2024 9:33 AM EDT A Body Mass Index follow-up plan has been documented for the patient 05/28/2024 1:52 PM EST documented as of this encounter Care Teams Dependency Counselor Relationship Specialty Start Date End Date Jevon Vazquez MD [address] [place] [address] #1 #1 [place] [address] PCP - General 03/23/22 documented as of this encounter
--- OUTSIDE RECORDS SUMMARY | 2024-11-20 09:08 | XMS_ITS | Encounter Summary ---
Author Organization Healthcare Address [address] [place] [address] Care Team Providers Care Adult Basic Studies Teacher Name Role Phone Jevon Vazquez MD Primary Care Provider [phone] Encounter Details Date Type Department Care Team [...] Hematology/BMT and Cellular Therapy Program [address] [address] 11/28/2024 2:30 PM EDT Office Visit P[facility] CC Hematology/BMT and Cellular Therapy Program [address] [address] Zonia Hoffman, EDITORIAL ASSISTANT 800 [facility] [address] [place] [address] 11/28/2024 4:00 PM EDT Appointment [facility] 1 [address] [place] [address] 11/29/2024 1:00 PM EDT Appointment [facility] 1 [address] [place] [address] 11/30/2024 1:00 PM EDT Appointment [facility] 1 [address] [place] [address] 12/01/2024 1:00 PM EDT Appointment [facility] 2 [address] [place] [address] 12/02/2024 2:30 PM EDT Appointment [facility] 2 [address] [place] [address] 12/03/2024 2:00 PM EDT Appointment [facility] 1 [address] [place] [address] 12/04/2024 1:00 PM EDT Appointment [facility] Infusion [address] [place] [address] documented as of this encounter Visit Diagnoses Not on filedocumented in this encounter Additional Health Concerns Assessment Noted Time A fall risk assessment has been complete d for the patient 09/30/2024 9:33 AM EDT A Body Mass Index follow-up plan has been documented for the patient 05/28/2024 1:52 PM EST documented as of this encounter Care Teams Adult Basic Studies Teacher Relationship Specialty Start Date End Date Jevon Vazquez MD [address] [place] [address] #1 #1 [place] [address] PCP - General 03/23/22 documented as of this encounter
--- OUTSIDE RECORDS SUMMARY | 2024-11-20 09:08 | XMS_ITS | Encounter Summary ---
Author Organization Healthcare Address [address] [place] [address] Care Team Providers Care Artificial Breeding Ranch Supervisor Name Role Phone Jevon Vazquez MD Primary Care Provider [phone] Encounter Details Date Type Department Care Team [...] Hematology/BMT and Cellular Therapy Program [address] [address] 11/28/2024 2:30 PM EDT Office Visit [facility] Hematology/BMT and Cellular Therapy Program [address] [address] Zonia Hoffman, HEEL SEAT FITTER 800 [facility] [address] [place] [address] 11/28/2024 4:00 PM EDT Appointment [facility] 1 [address] [place] [address] 11/29/2024 1:00 PM EDT Appointment [facility] 1 [address] [place] [address] 11/30/2024 1:00 PM EDT Appointment [facility] 1 [address] [place] [address] 12/01/2024 1:00 PM EDT Appointment [facility] 2 [address] [place] [address] 12/02/2024 2:30 PM EDT Appointment [facility] 2 [address] [place] [address] 12/03/2024 2:00 PM EDT Appointment [facility] 1 [address] [place] [address] 12/04/2024 1:00 PM EDT Appointment [facility] 800 [place] [address] documented as of this encounter Visit Diagnoses Not on filedocumented in this encounter Additional Health Concerns Assessment Noted Time A fall risk assessment has been complete d for the patient 09/30/2024 9:33 AM EDT A Body Mass Index follow-up plan has been documented for the patient 05/28/2024 1:52 PM EST documented as of this encounter Care Teams Artificial Breeding Ranch Supervisor Relationship Specialty Start Date End Date Jevon Vazquez MD [address] [place] [address] #1 [address]1 [place] [address] PCP - General 03/23/22 documented as of this encounter
--- OUTSIDE RECORDS SUMMARY | 2024-11-20 09:08 | XMS_ITS | Encounter Summary ---
Author Organization Healthcare Address [address] [place] [address] Care Team Providers Care Dye House Supervisor Name Role Phone Jevon Vazquez MD Primary Care Provider [phone] Encounter Details Date Type Department Care Team [...] Hematology/BMT and Cellular Therapy Program [address] [address] 11/28/2024 2:30 PM EDT Office Visit [facility] Hematology/BMT and Cellular Therapy Program [address] [address] Zonia Hoffman, SET STAFF FITTER 800 [facility] [address] [place] [address] 11/28/2024 4:00 PM EDT Appointment [facility] 1 [address] [place] [address] 11/29/2024 1:00 PM EDT Appointment [facility] 1 [address] [place] [address] 11/30/2024 1:00 PM EDT Appointment [facility] 1 [address] [place] [address] 12/01/2024 1:00 PM EDT Appointment [facility] 2 [address] [place] [address] 12/02/2024 2:30 PM EDT Appointment [facility] 2 [address] [place] [address] 12/03/2024 2:00 PM EDT Appointment [facility] 1 [address] [place] [address] 12/04/2024 1:00 PM EDT Appointment [facility] 800 [place] [address] documented as of this encounter Visit Diagnoses Not on filedocumented in this encounter Additional Health Concerns Assessment Noted Time A fall risk assessment has been complete d for the patient 09/19/2024 8:38 AM EDT A Body Mass Index follow-up plan has been documented for the patient 05/28/2024 1:52 PM EST documented as of this encounter Care Teams Dye House Supervisor Relationship Specialty Start Date End Date Jevon Vazquez MD [address] [place] [address] #1 [address]1 [place] [address] PCP - General 03/23/22 documented as of this encounter
--- OUTSIDE RECORDS SUMMARY | 2024-11-20 09:08 | XMS_ITS | Encounter Summary ---
Author Organization [facility] Address [address] [place] [address] Care Team Providers Care Learning Administrator Name Role Phone Jevon Vazquez MD Primary Care Provider [phone] Reason for Visit * Reason Comments Med Refill Encounter Details Date Type Department Care Team ([facility] Contact Info) Description 10/15/2024 Refill [facility] Hematology/BMT and Cellular Therapy Program [address] [phone] New Mckinney MD 800 [facility] [address] [place] [phone] Social History Tobacco Use Types Packs/Day Years [...] Team ([facility] Contact Info) Description 11/28/2024 2:00 PM EDT Clinical Support [facility] Hematology/BMT and Cellular Therapy Program [address] [phone] 11/28/2024 2:30 PM EDT Office Visit [facility] Hematology/BMT and Cellular Therapy Program [address] [address] Zonia Hoffman, CLINICAL COORDINATOR [address] [facility] [address] [place] [address] 11/28/2024 4:00 PM EDT Appointment [facility] 1 [address] [place] [address] 11/29/2024 1:00 PM EDT Appointment [facility] 1 [address] [place] [address] 11/30/2024 1:00 PM EDT Appointment [facility] 1 [address] [place] [address] 12/01/2024 1:00 PM EDT Appointment [facility] 2 [address] [place] [address] 12/02/2024 2:30 PM EDT Appointment [facility] 2 [address] [place] [address] 12/03/2024 2:00 PM EDT Appointment [facility] 1 [address] [place] [address] 12/04/2024 1:00 PM EDT Appointment [facility] 800 [place] [address] documented as of this encounter Visit Diagnoses Not on filedocumented in this encounter Additional Health Concerns Assessment Noted Time A fall risk assessment has been complete d for the patient 09/30/2024 9:33 AM EDT A Body Mass Index follow-up plan has been documented for the patient 05/28/2024 1:52 PM EST documented as of this encounter Care Teams Learning Administrator Relationship Specialty Start Date End Date Jevon Vazquez MD [address] [place] [address] #1 #1 [place] [address] PCP - General 03/23/22 documented as of this encounter
--- OUTSIDE RECORDS SUMMARY | 2024-11-20 09:08 | XMS_ITS | Encounter Summary ---
Author Organization [facility] Address [address] [place] [address] Care Team Providers Care Cs Associate Name Role Phone Jevon Vazquez MD Primary Care Provider [phone] Reason for Visit * Reason Comments Med Refill Encounter Details Date Type Department Care Team ([facility] Contact Info) Description 10/14/2024 Refill [facility] Hematology/BMT and Cellular Therapy Program [address] [phone] New Mckinney MD 800 [facility] [address] [place] [phone] Social History Tobacco Use Types Packs/Day Years [...] Upcoming Encounters Date Type Department Care Team ([facility] Contact Info) Description 11/28/2024 2:00 PM EDT Clinical Support [facility] Hematology/BMT and Cellular Therapy Program [address] [phone] 11/28/2024 2:30 PM EDT Office Visit [facility] Hematology/BMT and Cellular Therapy Program [address] [address] Zonia Hoffman, RAILROAD CARMAN [address] [facility] [address] [place] [address] 11/28/2024 4:00 PM EDT Appointment [facility] 1 [address] [place] [address] 11/29/2024 1:00 PM EDT Appointment [facility] 1 [address] [place] [address] 11/30/2024 1:00 PM EDT Appointment [facility] 1 [address] [place] [address] 12/01/2024 1:00 PM EDT Appointment [facility] 2 [address] [place] [address] 12/02/2024 2:30 PM EDT Appointment [facility] 2 [address] [place] [address] 12/03/2024 2:00 PM EDT Appointment [facility] 1 [address] [place] [address] 12/04/2024 1:00 PM EDT Appointment [facility] 800 [place] [address] documented as of this encounter Visit Diagnoses Not on filedocumented in this encounter Additional Health Concerns Assessment Noted Time A fall risk assessment has been complete d for the patient 09/30/2024 9:33 AM EDT A Body Mass Index follow-up plan has been documented for the patient 05/28/2024 1:52 PM EST documented as of this encounter Care Teams Cs Associate Relationship Specialty Start Date End Date Jevon Vazquez MD [address] [place] [address] #1 #1 [place] [address] PCP - General 03/23/22 documented as of this encounter
--- OUTSIDE RECORDS SUMMARY | 2024-11-20 09:08 | XMS_ITS | Encounter Summary ---
Author Organization Healthcare Address [address] [place] [address] Care Team Providers Care Orthopaedic Doctor Name Role Phone Jevon Vazquez MD Primary Care Provider [phone] Encounter Details Date Type Department Care Team ([facility] st Contact Info) Description 10/13/2024 Telephone [facility] Hematology/BMT and Cellular Therapy Program [address] [phone] Zonia Hoffman, PRACTICE SPECIALIST 800 [facility] [address] [place] [address] Social History Tobacco Use Types Packs/Day Years [...] needs to be delayed again Callback number: [phone] documented in this encounter Plan of Treatment Upcoming Encounters Date Type Department Care Team ([facility] st Contact Info) Description 11/28/2024 2:00 PM EDT Clinical Support [facility] Hematology/BMT and Cellular Therapy Program [address] [address] 11/28/2024 2:30 PM EDT Office Visit [facility] Hematology/BMT and Cellular Therapy Program [address] [address] Zonia Hoffman, PRACTICE SPECIALIST 800 [facility] [address] [place] [address] 11/28/2024 4:00 PM EDT Appointment [facility] 1 [address] [place] [address] 11/29/2024 1:00 PM EDT Appointment [facility] 1 [address] [place] [address] 11/30/2024 1:00 PM EDT Appointment [facility] 1 [address] [place] [address] 12/01/2024 1:00 PM EDT Appointment [facility] 2 [address] [place] [address] 12/02/2024 2:30 PM EDT Appointment [facility] 2 [address] [place] [address] 12/03/2024 2:00 PM EDT Appointment [facility] 1 [address] [place] [address] 12/04/2024 1:00 PM EDT Appointment [facility] 800 [place] [address] documented as of this encounter Visit Diagnoses Not on filedocumented in this encounter Additional Health Concerns Assessment Noted Time A fall risk assessment has been complete d for the patient 09/30/2024 9:33 AM EDT A Body Mass Index follow-up plan has been documented for the patient 05/28/2024 1:52 PM EST documented as of this encounter Care Teams Orthopaedic Doctor Relationship Specialty Start Date End Date Jevon Vazquez MD [address] [place] [address] #1 #1 [place] [address] PCP - General 03/23/22 documented as of this encounter
--- OUTSIDE RECORDS SUMMARY | 2024-11-20 09:08 | XMS_ITS | Encounter Summary ---
Author Organization Healthcare Address [address] [place] [address] Care Team Providers Care Engraved Roller Inspector Name Role Phone Jevon Vazquez MD Primary Care Provider [phone] Encounter Details Date Type Department Care Team [...] Hematology/BMT and Cellular Therapy Program [address] [address] 11/28/2024 2:30 PM EDT Office Visit [facility] Hematology/BMT and Cellular Therapy Program [address] [address] Zonia Hoffman, ROLLER PAINTER 800 [facility] [address] [place] [address] 11/28/2024 4:00 PM EDT Appointment [facility] 1 7[address] [place] [address] 11/29/2024 1:00 PM EDT Appointment [facility] 1 [address] [place] [address] 11/30/2024 1:00 PM EDT Appointment [facility] 1 [address] [place] [address] 12/01/2024 1:00 PM EDT Appointment [facility] 2 [address] [place] [address] 12/02/2024 2:30 PM EDT Appointment [facility] 2 [address] [place] [address] 12/03/2024 2:00 PM EDT Appointment [facility] 1 [address] [place] [address] 12/04/2024 1:00 PM EDT Appointment [facility] 800 [place] [address] documented as of this encounter Visit Diagnoses Not on filedocumented in this encounter Additional Health Concerns Assessment Noted Time A fall risk assessment has been complete d for the patient 09/30/2024 9:33 AM EDT A Body Mass Index follow-up plan has been documented for the patient 05/28/2024 1:52 PM EST documented as of this encounter Care Teams Engraved Roller Inspector Relationship Specialty Start Date End Date Jevon Vazquez MD [address] [place] [address] #1 [address]1 [place] [address] PCP - General 03/23/22 documented as of this encounter
--- OUTSIDE RECORDS SUMMARY | 2024-11-20 09:08 | XMS_ITS | Encounter Summary ---
Author Organization Healthcare Address [address] [place] [address] Care Team Providers Care Wrapper Operator Name Role Phone Jevon Vazquez MD Primary Care Provider [phone] Encounter Details Date Type Department Care Team [...] Hematology/BMT and Cellular Therapy Program [address] [address] 11/28/2024 2:30 PM EDT Office Visit [facility] Hematology/BMT and Cellular Therapy Program [address] [address] Zonia Hoffman, CARTON STENCILER 800 [facility] [address] [place] [address] 11/28/2024 4:00 PM EDT Appointment [facility] 1 [address] [place] [address] 11/29/2024 1:00 PM EDT Appointment [facility] 1 [address] [place] [address] 11/30/2024 1:00 PM EDT Appointment [facility] 1 [address] [place] [address] 12/01/2024 1:00 PM EDT Appointment [facility] 2 [address] [place] [address] 12/02/2024 2:30 PM EDT Appointment [facility] 2 [address] [place] [address] 12/03/2024 2:00 PM EDT Appointment [facility] 1 [address] [place] [address] 12/04/2024 1:00 PM EDT Appointment [facility] 800 [place] [address] documented as of this encounter Visit Diagnoses Not on filedocumented in this encounter Additional Health Concerns Assessment Noted Time A fall risk assessment has been complete d for the patient 09/30/2024 9:33 AM EDT A Body Mass Index follow-up plan has been documented for the patient 05/28/2024 1:52 PM EST documented as of this encounter Care Teams Wrapper Operator Relationship Specialty Start Date End Date Jevon Vazquez MD [address] [place] [address] #1 #1 [place] [address] PCP - General 03/23/22 documented as of this encounter
--- OUTSIDE RECORDS SUMMARY | 2024-11-20 09:08 | XMS_ITS | Encounter Summary ---
Author Organization Healthcare Address [address] [place] [address] Care Team Providers Care Shadowgraph Scale Operator Name Role Phone Jevon Vazquez MD Primary Care Provider [phone] Encounter Details Date Type Department Care Team [...] Cellular Therapy Program [address] [address] 11/28/2024 2:30 PM EDT Office Visit [facility] Hematology/BMT and Cellular Therapy Program [address] [address] Zonia Hoffman, SKIP MINER [address] [facility] [address] [place] [address] 11/28/2024 4:00 PM EDT Appointment [facility] 1 7[address] [place] [address] 11/29/2024 1:00 PM EDT Appointment [facility] 1 [address] [place] [address] 11/30/2024 1:00 PM EDT Appointment [facility] 1 [address] [place] [address] 12/01/2024 1:00 PM EDT Appointment [facility] 2 [address] [place] [address] 12/02/2024 2:30 PM EDT Appointment [facility] 2 [address] [place] [address] 12/03/2024 2:00 PM EDT Appointment [facility] 1 [address] [place] [address] 12/04/2024 1:00 PM EDT Appointment [facility] 800 [place] [address] documented as of this encounter Visit Diagnoses Not on filedocumented in this encounter Additional Health Concerns Assessment Noted Time A fall risk assessment has been complete d for the patient 09/30/2024 9:33 AM EDT A Body Mass Index follow-up plan has been documented for the patient 05/28/2024 1:52 PM EST documented as of this encounter Care Teams Shadowgraph Scale Operator Relationship Specialty Start Date End Date Jevon Vazquez MD [address] [place] [address] #1 [address]1 [place] [address] PCP - General 03/23/22 documented as of this encounter
--- OUTSIDE RECORDS SUMMARY | 2024-11-20 09:08 | XMS_ITS | Encounter Summary ---
Author Organization Healthcare Address [address] [place] [address] Care Team Providers Care Airplane Tester Name Role Phone Jevon Vazquez MD Primary Care Provider [phone] Encounter Details Date Type Department Care Team ([facility] Contact Info) Description 09/19/2024 Orders Only [facility] Hematology/BMT and Cellular Therapy Program [address] [phone] 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, RN [facility]IC Social [...] Upcoming Encounters Date Type Department Care Team ([facility] Contact Info) Description 11/28/2024 2:00 PM EDT Clinical Support [facility] Hematology/BMT and Cellular Therapy Program [address] [phone] 11/28/2024 2:30 PM EDT Office Visit [facility] Hematology/BMT and Cellular Therapy Program [address] [phone] Zonia Hoffman, FUR POINTER 800 [facility] [address] [place] [address] 11/28/2024 4:00 PM EDT Appointment [facility] 1 [address] [place] [address] 11/29/2024 1:00 PM EDT Appointment [facility] 1 [address] [place] [address] 11/30/2024 1:00 PM EDT Appointment [facility] 1 [address] [place] [address] 12/01/2024 1:00 PM EDT Appointment [facility] 2 [address] [place] [address] 12/02/2024 2:30 PM EDT Appointment [facility] 2 [address] [place] [address] 12/03/2024 2:00 PM EDT Appointment [facility] 1 [address] [place] [address] 12/04/2024 1:00 PM EDT Appointment [facility] Infusion 800 [place] [address] documented as of this encounter Visit Diagnoses Not on filedocumented in this encounter Additional Health Concerns Assessment Noted Time A fall risk assessment has been complete d for the patient 09/19/2024 8:38 AM EDT A Body Mass Index follow-up plan has been documented for the patient 05/28/2024 1:52 PM EST documented as of this encounter Care Teams Airplane Tester Relationship Specialty Start Date End Date Jevon Vazquez MD [address] [place] [address] #1 #1 [place] [address] PCP - General 03/23/22 documented as of this encounter
--- OUTSIDE RECORDS SUMMARY | 2024-11-20 09:08 | XMS_ITS | Encounter Summary ---
Author Organization Healthcare Address [address] [place] [address] Care Team Providers Care Hospital Television Rental Clerk Name Role Phone Jevon Vazquez MD Primary Care Provider [phone] Encounter Details Date Type Department Care Team [...] Hematology/BMT and Cellular Therapy Program [address] [address] 11/28/2024 2:30 PM EDT Office Visit [facility] Hematology/BMT and Cellular Therapy Program [address] [address] Zonia Hoffman, EMPLOYMENT CLERK 800 [facility] [address] [place] [address] 11/28/2024 4:00 PM EDT Appointment [facility] 1 [address] [place] [address] 11/29/2024 1:00 PM EDT Appointment [facility] 1 [address] [place] [address] 11/30/2024 1:00 PM EDT Appointment [facility] 1 [address] [place] [address] 12/01/2024 1:00 PM EDT Appointment [facility] 2 [address] [place] [address] 12/02/2024 2:30 PM EDT Appointment [facility] 2 [address] [place] [address] 12/03/2024 2:00 PM EDT Appointment [facility] 1 [address] [place] [address] 12/04/2024 1:00 PM EDT Appointment [facility] [address] [place] [address] documented as of this encounter Visit Diagnoses Not on filedocumented in this encounter Additional Health Concerns Assessment Noted Time A fall risk assessment has been complete d for the patient 09/30/2024 9:33 AM EDT A Body Mass Index follow-up plan has been documented for the patient 05/28/2024 1:52 PM EST documented as of this encounter Care Teams Hospital Television Rental Clerk Relationship Specialty Start Date End Date Jevon Vazquez MD [address] [place] [address] #1 #1 [place] [address] PCP - General 03/23/22 documented as of this encounter
--- OUTSIDE RECORDS SUMMARY | 2024-11-20 09:08 | XMS_ITS | Encounter Summary ---
Author Organization Healthcare Address [address] [place] [address] Care Team Providers Care Pumper Gauger Apprentice Name Role Phone Jevon Vazquez MD Primary Care Provider [phone] Encounter Details Date Type Department Care Team [...] Hematology/BMT and Cellular Therapy Program [address] [address] 11/28/2024 2:30 PM EDT Office Visit [facility] Hematology/BMT and Cellular Therapy Program [address] [address] Zonia Hoffman, SPORTS WRITER 800 [facility] [address] [place] [address] 11/28/2024 4:00 PM EDT Appointment [facility] 1 [address] [place] [address] 11/29/2024 1:00 PM EDT Appointment [facility] 1 [address] [place] [address] 11/30/2024 1:00 PM EDT Appointment [facility] 1 [address] [place] [address] 12/01/2024 1:00 PM EDT Appointment [facility] 2 [address] [place] [address] 12/02/2024 2:30 PM EDT Appointment [facility] 2 [address] [place] [address] 12/03/2024 2:00 PM EDT Appointment [facility] 1 [address] [place] [address] 12/04/2024 1:00 PM EDT Appointment [facility] 800 [place] [address] documented as of this encounter Visit Diagnoses Not on filedocumented in this encounter Additional Health Concerns Assessment Noted Time A fall risk assessment has been complete d for the patient 09/30/2024 9:33 AM EDT A Body Mass Index follow-up plan has been documented for the patient 05/28/2024 1:52 PM EST documented as of this encounter Care Teams Pumper Gauger Apprentice Relationship Specialty Start Date End Date Jevon Vazquez MD [address] [place] [address] #1 [address]1 [place] [address] PCP - General 03/23/22 documented as of this encounter
--- OUTSIDE RECORDS SUMMARY | 2024-11-20 09:08 | XMS_ITS | Encounter Summary ---
Author Organization [facility] Address [address] [place] [address] Care Team Providers Care Boilermaker Mechanic Name Role Phone Jevon Vazquez MD Primary Care Provider [phone] Reason for Visit * Reason Comments Med Refill Encounter Details Date Type Department Care Team ([facility] Contact Info) Description 01/30/2024 Refill [facility] Hematology/BMT and Cellular Therapy Program [address] [phone] New Mckinney MD 800 [facility] [address] [place] [address] Social History Tobacco Use Types Packs/Day Years [...] Encounters Date Type Department Care Team ([facility] Contact Info) Description 11/28/2024 2:00 PM EDT Clinical Support [facility] Hematology/BMT and Cellular Therapy Program [address] [place] [address] 11/28/2024 2:30 PM EDT Office Visit [facility] Hematology/BMT and Cellular Therapy Program [address] [phone] Zonia Hoffman, PROPOSAL ENGINEER [address] [facility] [address] [place] [address] 11/28/2024 4:00 PM EDT Appointment [facility] 1 [address] [place] [address] 11/29/2024 1:00 PM EDT Appointment [facility] 1 [address] [place] [address] 11/30/2024 1:00 PM EDT Appointment [facility] 1 [address] [place] [address] 12/01/2024 1:00 PM EDT Appointment [facility] 2 [address] [place] [address] 12/02/2024 2:30 PM EDT Appointment [facility] 2 [address] [place] [address] 12/03/2024 2:00 PM EDT Appointment [facility] 1 [address] [place] [address] 12/04/2024 1:00 PM EDT Appointment [facility] 800 [place] [address] documented as of this encounter Visit Diagnoses Not on filedocumented in this encounter Additional Health Concerns Assessment Noted Time A fall risk assessment has been complete d for the patient 01/11/2024 9:16 AM EDT A Body Mass Index follow-up plan has been documented for the patient 01/21/2024 6:16 AM EDT documented as of this encounter Care Teams Boilermaker Mechanic Relationship Specialty Start Date End Date Jevon Vazquez MD [address] [place] [address] #1 #1 [place] [address] PCP - General 03/23/22 documented as of this encounter
--- OUTSIDE RECORDS SUMMARY | 2024-11-20 09:08 | XMS_ITS | Encounter Summary ---
Author Organization Healthcare Address [address] [place] [address] Care Team Providers Care Circulation Manager Name Role Phone Jevon Vazquez MD Primary Care Provider [phone] Encounter Details Date Type Department Care Team ([facility] st Contact Info) Description 10/28/2024 Telephone P[facility] CC Hematology/BMT and Cellular Therapy Program [address] [phone] Zonia Hoffman, MANAGER ROOM 800 [facility] [address] [place] [phone] Social History Tobacco Use Types Packs/Day Years [...] go over her labs results Callback number: [phone] documented in this encounter Plan of Treatment Upcoming Encounters Date Type Department Care Team (Late st Contact Info) Description 11/28/2024 2:00 PM EDT Clinical Support PAV CC Hematology/BMT and Cellular Therapy Program 750 [facility], [address] [place] [phone] 11/28/2024 2:30 PM EDT Office Visit PAV Hematology/BMT and Cellular Therapy Program 750 [facility], [address] [place] [phone] Zonia Hoffman, MANAGER ROOM 800 [facility] [address] [place] [address] 11/28/2024 4:00 PM EDT Appointment [facility] 1 [address] [place] [address] 11/29/2024 1:00 PM EDT Appointment [facility] 1 [address] [place] [address] 11/30/2024 1:00 PM EDT Appointment [facility] 1 [address] [place] [address] 12/01/2024 1:00 PM EDT Appointment [facility] 2 [address] [place] [address] 12/02/2024 2:30 PM EDT Appointment [facility] 2 [address] [place] [address] 12/03/2024 2:00 PM EDT Appointment [facility] 1 [address] [place] [address] 12/04/2024 1:00 PM EDT Appointment P[facility] Infusion 800 [place] [address] documented as of this encounter Visit Diagnoses Not on filedocumented in this encounter Additional Health Concerns Assessment Noted Time A fall risk assessment has been complete d for the patient 09/30/2024 9:33 AM EDT A Body Mass Index follow-up plan has been documented for the patient 05/28/2024 1:52 PM EST documented as of this encounter Care Teams Circulation Manager Relationship Specialty Start Date End Date Jevon Vazquez MD [address] [place] [address] #1 #1 [place] [address] PCP - General 03/23/22 documented as of this encounter
--- OUTSIDE RECORDS SUMMARY | 2024-11-20 09:08 | XMS_ITS | Encounter Summary ---
Author Organization Healthcare Address [address] [place] [address] Care Team Providers Care Uniform Cap Operator Name Role Phone Jevon Vazquez MD [...] Hematology/BMT and Cellular Therapy Program [address] [address] 11/28/2024 2:30 PM EDT Office Visit PAV CC Hematology/BMT and Cellular Therapy Program [address] [address] Zonia Hoffman, AUTOMOBILE RACER 800 [facility] [address] [place] [address] 11/28/2024 4:00 PM EDT Appointment [facility] 1 744 [place] [address] 11/29/2024 1:00 PM EDT Appointment [facility] 1 [address] [place] [address] 11/30/2024 1:00 PM EDT Appointment [facility] 1 [address] [place] [address] 12/01/2024 1:00 PM EDT Appointment [facility] 2 [address] [place] [address] 12/02/2024 2:30 PM EDT Appointment [facility] 2 [address] [place] [address] 12/03/2024 2:00 PM EDT Appointment [facility] 1 [address]44 [place] [address] 12/04/2024 1:00 PM EDT Appointment P[facility] Infusion 800 [place] [address] documented as of this encounter Visit Diagnoses Not on filedocumented in this encounter Additional Health Concerns Assessment Noted Time A fall risk assessment has been complete d for the patient 09/30/2024 9:33 AM EDT A Body Mass Index follow-up plan has been documented for the patient 05/28/2024 1:52 PM EST documented as of this encounter Care Teams Uniform Cap Operator Relationship Specialty Start Date End Date Jevon Vazquez MD [address] [place] [address] #1 #1 [place] [address] PCP - General 03/23/22 documented as of this encounter
--- OUTSIDE RECORDS SUMMARY | 2024-11-20 09:08 | XMS_ITS | Encounter Summary ---
Author Organization Healthcare Address [address] [place] [address] Care Team Providers Care Typer Name Role Phone Jevon Vazquez MD Primary Care Provider [phone] Encounter Details Date Type Department Care Team [...] Hematology/BMT and Cellular Therapy Program [address] [address] 11/28/2024 2:30 PM EDT Office Visit P[facility] CC Hematology/BMT and Cellular Therapy Program [address] [address] Zonia Hoffman, ASSOCIATE PROFESSOR OF CHEMISTRY 800 [facility] [address] [place] [address] 11/28/2024 4:00 PM EDT Appointment [facility] 1 [address]44 [place] [address] 11/29/2024 1:00 PM EDT Appointment [facility] 1 [address] [place] [address] 11/30/2024 1:00 PM EDT Appointment [facility] 1 [address] [place] [address] 12/01/2024 1:00 PM EDT Appointment [facility] 2 [address] [place] [address] 12/02/2024 2:30 PM EDT Appointment [facility] 2 [address] [place] [address] 12/03/2024 2:00 PM EDT Appointment [facility] 1 [address] [place] [address] 12/04/2024 1:00 PM EDT Appointment [facility] Infusion 800 [place] [address] documented as of this encounter Visit Diagnoses Not on filedocumented in this encounter Additional Health Concerns Assessment Noted Time A fall risk assessment has been complete d for the patient 09/19/2024 8:38 AM EDT A Body Mass Index follow-up plan has been documented for the patient 05/28/2024 1:52 PM EST documented as of this encounter Care Teams Typer Relationship Specialty Start Date End Date Jevon Vazquez MD [address] [place] [address] #1 #1 [place] [address] PCP - General 03/23/22 documented as of this encounter
--- OUTSIDE RECORDS SUMMARY | 2024-11-20 09:08 | XMS_ITS | Clinical Summary ---
Author Organization [facility] Address [address] [place] [address] Care Team Providers Care Bilingual Office Assistant Name Role Phone David Vazquez Primary Care Provider [phone] Allergies No known active allergies Medications atorvastatin [...] series) 2025 Medical Devices Implanted Type Area Conduit Cleaner Device Identifier Shelf Expiration Date Model / Serial / Lot Mis Ply Scr 6.5x50mm - [id number] Implanted:Qty : 1 on 01/30/2023 by Ivan Bartholomew MD at [facility] Screw N/A: Spine Lumbar [employer] [id number] / / Mis Ply Scr 6.5x45mm - [id number] Implanted:Qty : 3 on 01/30/2023 by Ivan Bartholomew MD at [facility] Screw N/A: Spine Lumbar [employer] [id number] / / Reline Mas Reduction Screw 7.5x45 - [id number] Implanted:Qty : 2 on 01/30/2023 by Ivan Bartholomew MD at [facility] Screw N/A: Spine Lumbar [employer] [id number] / / Grft Dbm Vesuvius Putty 5cc - [id number] Implanted:Qty : 1 on 01/30/2023 by Ivan Bartholomew MD at [facility] [employer] [id number] 04/20/2025 [id number] P / [id number] / Putty I-Factor 5.0cc - [id number] Implanted:Qty : 1 on 01/30/2023 by Ivan Bartholomew MD at [facility] N/A: Spine Lumbar [employer] 03/15/2025 [id number] / / [id number] Modulus Xlw [id number] 10 Degree - [id number] Implanted:Qty : 1 on 01/30/2023 by Ivan Bartholomew MD at [facility] N/A: Spine Lumbar [employer] [id number] / / [id number] Modulus Xlw [id number] - [id number] Implanted:Qty : 1 on 01/30/2023 by Ivan Bartholomew MD at [facility] N/A: Spine Lumbar [employer] 09/28/2027 [id number] / / [id number] Reln Lock Scr 5.5mm Opn Tulip - [id number] Implanted:Qty : 6 on 01/30/2023 by Ivan Bartholomew MD at [facility] N/A: Spine Lumbar [employer] [id number] / / Reln Mas Ti Petar 5.5x70mm - [id number] Implanted:Qty : 2 on 01/30/2023 by Ivan Bartholomew MD at [facility] N/A: Spine Lumbar [employer] [id number] / / Procedures Procedure Name Priority Date/Time [...] Hgb A1C 6.0(H) 4.0 - 5.6 % [facility] Comment: Reference Ranges [...] Glycohemoglobin Standardization program (NGSP) and [facility] Estimated Average Glucose 126(H) 68 - 114 mg/dL [facility] Whole Blood (Blood) 01/24/2023 2:32 PM EDT 01/24/2023 6:00 PM EDT us Ivan Bartholomew MD CHEMISTRY ORDERABLES Fin al Result [facility] [address] * (ABNORMAL) BASIC METABOLIC PANEL (BMP=EP1) (01/24/2023 2:32 PM EDT) Sodium 141 135 - 146 mmol/L [facility] Potassium 4.8 3.5 - 5.1 mmol/L [facility] Chloride 107 98 - 110 mmol/L [facility] CO2 24 22 - 29 mmol/L [facility] Anion Gap 10 5 - 13 mmol/L [facility] Comment:Anion gap calculatio n does not include potassium (K+) value. BUN 17 7 - 25 mg/dL [facility] Creatinine 1.20 0.50 - 1.20 mg/dL [facility] Glucose 125(H) 71 - 99 mg/dL [facility] Comment:Reference range (71- 99 mg/dL) refers only to fasting samples, and does not apply to non-fasting samples. eGFR CKD-EPI 2020 48 See Note [facility] Comment: eGFR calculated with 2020 CKD-EPI equation using creatinine, patient's age and gender. Other factors, especially muscle mass, may affect accuracy and need to be considered. Patient values should be interpreted as a trend. The reference interval is >60 mL/min/1.73m2. Calcium 10.3 8.5 - 10.5 mg/dL [facility] BUN/Creatinine Ratio 14 [facility] Serum 01/24/2023 2:32 PM EDT 01/24/2023 5:54 PM EDT us Lexi SUAREZ CHEMISTRY ORDERABLES Final Resu lt [facility] [address] from Last 3 Months or Most Recently Relevant to Health Maintenance Insurance MEDICARE PART A [facility] [address] [address] [place] [address] ANTH Advance Directives For more information, please contact: [phone] * Full Code (Latest Code Status on File) Date Activated Date Inactivated Comments 01/30/2023 9:13 AM No automated chest compression devices for [facility] Patients Care Teams Bilingual Office Assistant Relationship Specialty Start Date End Date David Vazquez [address] [place] [id number] PCP - General 01/24/23
--- OUTSIDE RECORDS SUMMARY | 2024-11-20 09:08 | XMS_ITS | Encounter Summary ---
Author Organization Healthcare Address [address] [place] [address] Care Team Providers Care Eating Disorder Specialist Name Role Phone Jevon Vazquez MD Primary Care Provider [phone] Encounter Details Date Type Department Care Team [...] Hematology/BMT and Cellular Therapy Program [address] [address] 11/28/2024 2:30 PM EDT Office Visit [facility] CC Hematology/BMT and Cellular Therapy Program [address] [address] Zonia Hoffman, NEONATAL DOCTOR 800 [facility] [address] [place] [address] 11/28/2024 4:00 PM EDT Appointment [facility] 1 [address] [place] [address] 11/29/2024 1:00 PM EDT Appointment [facility] 1 [address] [place] [address] 11/30/2024 1:00 PM EDT Appointment [facility] 1 [address] [place] [address] 12/01/2024 1:00 PM EDT Appointment [facility] 2 [address] [place] [address] 12/02/2024 2:30 PM EDT Appointment [facility] 2 [address] [place] [address] 12/03/2024 2:00 PM EDT Appointment [facility] 1 [address] [place] [address] 12/04/2024 1:00 PM EDT Appointment P[facility] Infusion 800 [place] [address] documented as of this encounter Visit Diagnoses Not on filedocumented in this encounter Additional Health Concerns Assessment Noted Time A fall risk assessment has been complete d for the patient 09/30/2024 9:33 AM EDT A Body Mass Index follow-up plan has been documented for the patient 05/28/2024 1:52 PM EST documented as of this encounter Care Teams Eating Disorder Specialist Relationship Specialty Start Date End Date Jevon Vazquez MD [address] [place] [address] #1 [address]1 [place] [address] PCP - General 03/23/22 documented as of this encounter
--- OUTSIDE RECORDS SUMMARY | 2024-11-20 09:08 | XMS_ITS ---
Author Organization [facility] Address [address] [place] [address] Care Team Providers Care Mechanical Engineering Director Name Role Phone Jevon Vazquez MD Primary Care Provider [phone] Active Problems Problem Noted Date Diagnosed Date [...]
--- OUTSIDE RECORDS SUMMARY | 2024-11-20 09:08 | XMS_ITS | Encounter Summary ---
Author Organization Healthcare Address [address] [place] [address] Care Team Providers Care Admissions Counselor Name Role Phone Jevon Vazquez MD Primary Care Provider [phone] Encounter Details Date Type Department Care Team [...] Hematology/BMT and Cellular Therapy Program [address] [address] 11/28/2024 2:30 PM EDT Office Visit [facility] CC Hematology/BMT and Cellular Therapy Program [address] [address] Zonia Hoffman, TAPE KELLER OPERATOR 800 [facility] [address] [place] [address] 11/28/2024 4:00 PM EDT Appointment [facility] 1 [address] [place] [address] 11/29/2024 1:00 PM EDT Appointment [facility] 1 [address] [place] [address] 11/30/2024 1:00 PM EDT Appointment [facility] 1 [address] [place] [address] 12/01/2024 1:00 PM EDT Appointment [facility] 2 [address] [place] [address] 12/02/2024 2:30 PM EDT Appointment [facility] 2 [address] [place] [address] 12/03/2024 2:00 PM EDT Appointment [facility] 1 [address] [place] [address] 12/04/2024 1:00 PM EDT Appointment [facility] Infusion 800 [place] [address] documented as of this encounter Visit Diagnoses Not on filedocumented in this encounter Additional Health Concerns Assessment Noted Time A fall risk assessment has been complete d for the patient 09/19/2024 8:38 AM EDT A Body Mass Index follow-up plan has been documented for the patient 05/28/2024 1:52 PM EST documented as of this encounter Care Teams Admissions Counselor Relationship Specialty Start Date End Date Jevon Vazquez MD [address] [place] [address] #1 [address]1 [place] [address] PCP - General 03/23/22 documented as of this encounter
--- OUTSIDE RECORDS SUMMARY | 2024-11-20 09:08 | XMS_ITS | Encounter Summary ---
Author Organization [facility] Address [address] [place] [address] Care Team Providers Care Sales Supervisor Name Role Phone Jevon Vazquez MD Primary Care Provider [phone] Reason for Visit * Reason Comments Med Refill Encounter Details Date Type Department Care Team ([facility] Contact Info) Description 11/08/2024 Refill P[facility] CC Hematology/BMT and Cellular Therapy Program [address] [phone] [place] MD 800 [facility] [address] [place] [address] Social History Tobacco Use Types Packs/Day Years [...] [facility] Contact Info) Description 11/28/2024 2:00 PM EDT Clinical Support P[facility] CC Hematology/BMT and Cellular Therapy Program [address] [address] 11/28/2024 2:30 PM EDT Office Visit [facility] CC Hematology/BMT and Cellular Therapy Program [address] [address] Zonia Hoffman, COREMAKER BENCH [address] [facility] [address] [place] [address] 11/28/2024 4:00 PM EDT Appointment [facility] 1 [address] [place] [address] 11/29/2024 1:00 PM EDT Appointment [facility] 1 [address] [place] [address] 11/30/2024 1:00 PM EDT Appointment [facility] 1 744 [place] [address] 12/01/2024 1:00 PM EDT Appointment [facility] 2 [address] [place] [address] 12/02/2024 2:30 PM EDT Appointment [facility] 2 [address] [place] [address] 12/03/2024 2:00 PM EDT Appointment [facility] 1 [address] [place] [address] 12/04/2024 1:00 PM EDT Appointment [facility] Infusion 800 [place] [address] documented as of this encounter Visit Diagnoses Not on filedocumented in this encounter Additional Health Concerns Assessment Noted Time A fall risk assessment has been complete d for the patient 09/30/2024 9:33 AM EDT A Body Mass Index follow-up plan has been documented for the patient 05/28/2024 1:52 PM EST documented as of this encounter Care Teams Sales Supervisor Relationship Specialty Start Date End Date Jevon Vazquez MD [address] [place] [address] #1 #1 [place] [address] PCP - General 03/23/22 documented as of this encounter
--- OUTSIDE RECORDS SUMMARY | 2024-11-20 09:08 | XMS_ITS | Encounter Summary ---
Author Organization Healthcare Address [address] [place] [address] Care Team Providers Care Vending Machine Coin Collector Name Role Phone Jevon Vazquez MD Primary Care Provider [phone] Encounter Details Date Type Department Care Team [...] Hematology/BMT and Cellular Therapy Program [address] [address] 11/28/2024 2:30 PM EDT Office Visit [facility] CC Hematology/BMT and Cellular Therapy Program [address] [address] Zonia Hoffman, PASTE WORKER 800 [facility] [address] [place] [address] 11/28/2024 4:00 PM EDT Appointment [facility] 1 [address] [place] [address] 11/29/2024 1:00 PM EDT Appointment [facility] 1 [address] [place] [address] 11/30/2024 1:00 PM EDT Appointment [facility] 1 [address] [place] [address] 12/01/2024 1:00 PM EDT Appointment [facility] 2 [address] [place] [address] 12/02/2024 2:30 PM EDT Appointment [facility] 2 [address] [place] [address] 12/03/2024 2:00 PM EDT Appointment [facility] 1 [address] [place] [address] 12/04/2024 1:00 PM EDT Appointment [facility] Infusion 800 [place] [address] documented as of this encounter Visit Diagnoses Not on filedocumented in this encounter Additional Health Concerns Assessment Noted Time A fall risk assessment has been complete d for the patient 09/30/2024 9:33 AM EDT A Body Mass Index follow-up plan has been documented for the patient 05/28/2024 1:52 PM EST documented as of this encounter Care Teams Vending Machine Coin Collector Relationship Specialty Start Date End Date Jevon Vazquze MD [address] [place] [address] #1 #1 [place] [address] PCP - General 03/23/22 documented as of this encounter
--- OUTSIDE RECORDS SUMMARY | 2024-11-20 09:08 | XMS_ITS | Encounter Summary ---
Author Organization Healthcare Address [address] [place] [address] Care Team Providers Care Hoe Worker Name Role Phone Jevon Vazquez MD Primary Care Provider [phone] Encounter Details Date Type Department Care Team [...] Hematology/BMT and Cellular Therapy Program [address] [address] 11/28/2024 2:30 PM EDT Office Visit [facility] Hematology/BMT and Cellular Therapy Program [address] [address] Zonia Hoffman, WOOD BOAT BUILDER SUPERVISOR 800 [facility] [address] [place] [address] 11/28/2024 4:00 PM EDT Appointment [facility] 1 [address] [place] [address] 11/29/2024 1:00 PM EDT Appointment [facility] 1 [address] [place] [address] 11/30/2024 1:00 PM EDT Appointment [facility] 1 [address] [place] [address] 12/01/2024 1:00 PM EDT Appointment [facility] 2 [address] [place] [address] 12/02/2024 2:30 PM EDT Appointment [facility] 2 [address] [place] [address] 12/03/2024 2:00 PM EDT Appointment [facility] 1 [address] [place] [address] 12/04/2024 1:00 PM EDT Appointment [facility] Infusion 800 [place] [address] documented as of this encounter Visit Diagnoses Not on filedocumented in this encounter Additional Health Concerns Assessment Noted Time A fall risk assessment has been complete d for the patient 09/30/2024 9:33 AM EDT A Body Mass Index follow-up plan has been documented for the patient 05/28/2024 1:52 PM EST documented as of this encounter Care Teams Hoe Worker Relationship Specialty Start Date End Date Jevon Vazquez MD [address] [place] [address] #1 [address]1 [place] [address] PCP - General 03/23/22 documented as of this encounter
--- OUTSIDE RECORDS SUMMARY | 2024-11-20 09:09 | XMS_ITS | Encounter Summary ---
Author Organization Healthcare Address [address] [place] [address] Care Team Providers Care Machine Maintenance Repairer Name Role Phone Jevon Vazquez MD Primary Care Provider [phone] Encounter Details Date Type Department Care Team [...] Hematology/BMT and Cellular Therapy Program [address] [address] 11/28/2024 2:30 PM EDT Office Visit [facility] Hematology/BMT and Cellular Therapy Program [address] [address] Zonia Hoffman, CUSTOMER COUNTER REPRESENTATIVE 800 [facility] [address] [place] [address] 11/28/2024 4:00 PM EDT Appointment [facility] 1 [address] [place] [address] 11/29/2024 1:00 PM EDT Appointment [facility] 1 [address] [place] [address] 11/30/2024 1:00 PM EDT Appointment [facility] 1 [address] [place] [address] 12/01/2024 1:00 PM EDT Appointment [facility] 2 [address] [place] [address] 12/02/2024 2:30 PM EDT Appointment [facility] 2 [address] [place] [address] 12/03/2024 2:00 PM EDT Appointment [facility] 1 [address] [place] [address] 12/04/2024 1:00 PM EDT Appointment [facility] Infusion 800 [place] [address] documented as of this encounter Visit Diagnoses Not on filedocumented in this encounter Additional Health Concerns Assessment Noted Time A fall risk assessment has been complete d for the patient 09/19/2024 8:38 AM EDT A Body Mass Index follow-up plan has been documented for the patient 05/28/2024 1:52 PM EST documented as of this encounter Care Teams Machine Maintenance Repairer Relationship Specialty Start Date End Date Jevon Vazquez MD [address] [place] [address] #1 #1 [place] [address] PCP - General 03/23/22 documented as of this encounter
--- OUTSIDE RECORDS SUMMARY | 2024-11-20 09:09 | XMS_ITS | Encounter Summary ---
Author Organization Healthcare Address [address] [place] [address] Care Team Providers Care Client Specialist Name Role Phone Jevon Vazquez MD Primary Care Provider [phone] Encounter Details Date Type Department Care Team [...] Hematology/BMT and Cellular Therapy Program [address] [address] 11/28/2024 2:30 PM EDT Office Visit [facility] Hematology/BMT and Cellular Therapy Program [address] [address] Zonia Hoffman, VETERINARY MEAT INSPECTOR 800 [facility] [address] [place] [address] 11/28/2024 4:00 PM EDT Appointment [facility] 1 [address] [place] [address] 11/29/2024 1:00 PM EDT Appointment [facility] 1 [address] [place] [address] 11/30/2024 1:00 PM EDT Appointment [facility] 1 [address] [place] [address] 12/01/2024 1:00 PM EDT Appointment [facility] 2 [address] [place] [address] 12/02/2024 2:30 PM EDT Appointment [facility] 2 [address] [place] [address] 12/03/2024 2:00 PM EDT Appointment [facility] 1 [address] [place] [address] 12/04/2024 1:00 PM EDT Appointment [facility] Infusion 800 [place] [address] documented as of this encounter Visit Diagnoses Not on filedocumented in this encounter Additional Health Concerns Assessment Noted Time A fall risk assessment has been complete d for the patient 09/19/2024 8:38 AM EDT A Body Mass Index follow-up plan has been documented for the patient 05/28/2024 1:52 PM EST documented as of this encounter Care Teams Client Specialist Relationship Specialty Start Date End Date Jevon Vazquez MD [address] [place] [address] #1 #1 [place] [address] PCP - General 03/23/22 documented as of this encounter
--- OUTSIDE RECORDS SUMMARY | 2024-11-20 09:09 | XMS_ITS | Encounter Summary ---
Author Organization Healthcare Address [address] [place] [address] Care Team Providers Care Chief Bank Examiner Name Role Phone Jevon Vazquez MD Primary Care Provider [phone] Encounter Details Date Type Department Care Team [...] Hematology/BMT and Cellular Therapy Program [address] [address] 11/28/2024 2:30 PM EDT Office Visit [facility] Hematology/BMT and Cellular Therapy Program [address] [address] Zonia Hoffman, RIDING DOUBLE 800 [facility] [address] [place] [address] 11/28/2024 4:00 PM EDT Appointment [facility] 1 [address] [place] [address] 11/29/2024 1:00 PM EDT Appointment [facility] 1 [address] [place] [address] 11/30/2024 1:00 PM EDT Appointment [facility] 1 [address] [place] [address] 12/01/2024 1:00 PM EDT Appointment [facility] 2 [address] [place] [address] 12/02/2024 2:30 PM EDT Appointment [facility] 2 [address] [place] [address] 12/03/2024 2:00 PM EDT Appointment [facility] 1 [address] [place] [address] 12/04/2024 1:00 PM EDT Appointment [facility] [address] [place] [address] documented as of this encounter Visit Diagnoses Not on filedocumented in this encounter Additional Health Concerns Assessment Noted Time A fall risk assessment has been complete d for the patient 09/30/2024 9:33 AM EDT A Body Mass Index follow-up plan has been documented for the patient 05/28/2024 1:52 PM EST documented as of this encounter Care Teams Chief Bank Examiner Relationship Specialty Start Date End Date Jevon Vazquez MD [address] [place] [address] [address]1 [address]1 [place] [address] PCP - General 03/23/22 documented as of this encounter
--- OUTSIDE RECORDS SUMMARY | 2024-11-20 09:09 | XMS_ITS | Encounter Summary ---
Author Organization Healthcare Address [address] [place] [address] Care Team Providers Care Economic Forecaster Name Role Phone Jevon Vazquez MD Primary Care Provider [phone] Encounter Details Date Type Department Care Team [...] Hematology/BMT and Cellular Therapy Program [address] [address] 11/28/2024 2:30 PM EDT Office Visit [facility] Hematology/BMT and Cellular Therapy Program [address] [address] Zonia Hoffman, SURFACE GRINDING MACHINE HAND 800 [facility] [address] [place] [address] 11/28/2024 4:00 PM EDT Appointment [facility] 1 [address] [place] [address] 11/29/2024 1:00 PM EDT Appointment [facility] 1 [address] [place] [address] 11/30/2024 1:00 PM EDT Appointment [facility] 1 [address] [place] [address] 12/01/2024 1:00 PM EDT Appointment [facility] 2 [address] [place] [address] 12/02/2024 2:30 PM EDT Appointment [facility] 2 [address] [place] [address] 12/03/2024 2:00 PM EDT Appointment [facility] 1 [address] [place] [address] 12/04/2024 1:00 PM EDT Appointment [facility] [address] [place] [address] documented as of this encounter Visit Diagnoses Not on filedocumented in this encounter Additional Health Concerns Assessment Noted Time A fall risk assessment has been complete d for the patient 09/30/2024 9:33 AM EDT A Body Mass Index follow-up plan has been documented for the patient 05/28/2024 1:52 PM EST documented as of this encounter Care Teams Economic Forecaster Relationship Specialty Start Date End Date Jevon Vazquez MD [address] [place] [address] #1 [address]1 [place] [address] PCP - General 03/23/22 documented as of this encounter
--- OUTSIDE RECORDS SUMMARY | 2024-11-20 09:09 | XMS_ITS | Clinical Summary ---
Author Organization [facility] Address [address] [place] [address] Phone Care Team Providers Care Quiller Runner Name Role Phone Jevon Vazquez MD Primary Care Provider [phone] Allergies Active Allergy Reactions Criticality Noted Date [...] LAMINECTOMY; Surgeon: Ivan Bartholomew MD; Location: [facility]; Service: Spine Medical History [...] Comments Wellness Exam Medicare 1953 Lipids 1960 Diabetic Eye Exam 1968 Hepatitis C Screening 1968 Kidney Health: uACR 1968 Breast Cancer Screening 1990 Cologuard 11/04/1995 Colon Cancer Screening 11/04/1995 Colonoscopy 11/04/1995 FIT 11/04/1995 Sigmoidoscopy 11/04/1995 Virtual Colonography 11/04/1995 Zoster (2 of 3) 05/16/2023 03/21/2023 Hemoglobin A1c 07/26/2023 01/24/2023, 11/11/2022 Kidney Health: eGFR 11/12/2023 11/11/2022, COVID-19 Vaccine ( season) 2023 02/18/2021, 07/10/2020, 06/12/2020 Influenza Vaccine (#1) 2024 , 02/10/2021, 01/23/2020, Additional history exists DTaP/TDaP/Td (2 [...] 5.6 % 11/14/2022 2:57 PM EDT [employer] Est. Avg Glucose 148 mg/dL 11/14/2022 2:57 PM EDT [employer], [facility] Blood VENOUS BLOOD / Unknown Venipuncture / Unknown 11/11/2022 3:46 PM EDT 11/11/2022 3:55 PM EDT Narrative [facility] - 11/14/2022 2:57 PM EDT REFERENCE RANGE: Normal: 4.0-5.6% Pre-diabetes: 5.7-6.4% Provisional diagnosis of diabetes: >6.4% Hgb F>10% and anything which shortens red cell survival, such as hemolytic anemia, or unstable hemoglobin variants such as HbSS, HbSC, or HbCC, will lower the HbA1c value associated with a given level of glycemic control. us Lexi Maloney DO CHEMISTRY ORDERABLES Final R esult [facility] M-[facility] [address] [facility] , [address] [place] [id number] * (ABNORMAL) BASIC METABOLIC PANEL (11/11/2022 3:46 PM EDT) Sodium 136 136 - 145 mmol/L 11/11/2022 4:11 PM EDT [facility] Potassium 3.8 3.5 - 5.0 mmol/L 11/11/2022 4:11 PM EDT [facility] Chloride 102 98 - 107 mmol/L 11/11/2022 4:11 PM EDT [facility] Total CO2 24 22 - 29 mmol/L 11/11/2022 4:11 PM EDT [facility] Anion Gap 10 7 - 16 mmol/L 11/11/2022 4:11 PM EDT [facility] Calcium 10.1 8.8 - 10.4 mg/dL 11/11/2022 4:11 PM EDT [facility] Glucose Lvl 147(H) 82 - 100 mg/dL 11/11/2022 4:11 PM EDT [facility] BUN 15 8 - 23 mg/dL 11/11/2022 4:11 PM EDT [facility] Creatinine 0.82 0.51 - 1.30 mg/dL 11/11/2022 4:11 PM EDT [facility] eGFR (CKD-EPIcr 2020) 76 >=60 mL/min/1.7 3 m2 11/11/2022 4:11 PM EDT [facility] Comment:Estimated GFR was ca lculated using the CKD-EPIcr (2020) equation refit without race. The equation is recommended by the National Kidney Foundation - [place] [employer] of Nephrology Task Force. Blood VENOUS BLOOD / Unknown Venipuncture / Unknown 11/11/2022 3:46 PM EDT 11/11/2022 3:54 PM EDT us Leona Hanna DO CHEMISTRY ORDERABLES Final Res ult [facility] [address] [place] [address] * DX BONE DENSITY AXIAL SKELETON (07/25/2022 9:14 AM EDT) Anatomical Region Laterality Modality Dexa Scan 07/25/2022 Narrative 07/25/2022 3:45 PM EDT Indication: The patient is a female age 65 or older who requires a bone density assessment. Study was performed on [employer] 5. Bone Density: Region BMD T-score Z-score [...] Insurance [place]IC[place] [address] [place] [address] MEDICARE SUPPLEMENT MEDICARE [place] PART A AND B Member Subscriber Plan / Payer (Ef fective 2016-Present) Name:Ashly Hernández Member ID:[id number] Relation to Subscriber:Self Name:Ashly Hernández Subscriber ID:[id number] Payer ID:Not on file Group ID:Not on file Type:Not on file Address: [address] MEDICARE SUPPLEMENT MEDICARE [place] PART A & B [place] PART A AND B Member Subscriber Plan / Payer (Ef fective 2016-Present) Name:Ashly Hernández Member ID:[id number] Relation to Subscriber:Self Name:Ashly Hernández Subscriber ID:[id number] Payer ID:Not on file Group ID:Not on file Type:Not on file Address: [address] MEDICARE SUPPLEMENT [employer] MEDICARE [place] PART A AND B [address] MEDICARE SUPPLEMENT Advance Directives For more information, please contact: [phone] * Full Code (Latest Code Status on File) Date Activated Date Inactivated Comments 11/14/2022 6:53 PM 11/16/2022 7:37 PM * Full Code Date Activated Date Inactivated Comments 11/12/2022 5:17 AM 11/14/2022 6:47 PM Care Teams Quiller Runner Relationship Specialty Start Date End Date Jevon Vazquez MD [address] [place] [address] PCP - General Family Medicine 11/10/22
--- OUTSIDE RECORDS SUMMARY | 2024-11-20 09:09 | XMS_ITS | Encounter Summary ---
Author Organization Healthcare Address [address] [place] [address] Care Team Providers Care Plastics Plater Name Role Phone Jevon Vazquez MD Primary Care Provider [phone] Encounter Details Date Type Department Care Team [...] Hematology/BMT and Cellular Therapy Program [address] [address] 11/28/2024 2:30 PM EDT Office Visit [facility] Hematology/BMT and Cellular Therapy Program [address] [address] Zonia Hoffman, EXPORT FREIGHT SPECIALIST 800 [facility] [address] [place] [address] 11/28/2024 4:00 PM EDT Appointment [facility] 1 [address] [place] [address] 11/29/2024 1:00 PM EDT Appointment [facility] 1 [address] [place] [address] 11/30/2024 1:00 PM EDT Appointment [facility] 1 [address] [place] [address] 12/01/2024 1:00 PM EDT Appointment [facility] 2 [address] [place] [address] 12/02/2024 2:30 PM EDT Appointment [facility] 2 [address] [place] [address] 12/03/2024 2:00 PM EDT Appointment [facility] 1 [address] [place] [address] 12/04/2024 1:00 PM EDT Appointment [facility] [address] [place] [address] documented as of this encounter Visit Diagnoses Not on filedocumented in this encounter Additional Health Concerns Assessment Noted Time A fall risk assessment has been complete d for the patient 09/30/2024 9:33 AM EDT A Body Mass Index follow-up plan has been documented for the patient 05/28/2024 1:52 PM EST documented as of this encounter Care Teams Plastics Plater Relationship Specialty Start Date End Date Jevon Vazquez MD [address] [place] [address] #1 [address]1 [place] [address] PCP - General 03/23/22 documented as of this encounter
--- OUTSIDE RECORDS SUMMARY | 2024-11-20 09:09 | XMS_ITS | Encounter Summary ---
Author Organization [facility] Address [address] [place] [address] Care Team Providers Care Statistical Clerk Name Role Phone Jevon Vazuqez MD Primary Care Provider [phone] Encounter Details Date Type Department Care Team ([facility] Contact Info) Description 11/13/2024 Orders Only [facility] Hematology/BMT and Cellular Therapy Program [address] [address] 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, RN [facility] Acute myeloid leukemia [...] Hematology/BMT and Cellular Therapy Program [address] [address] 11/28/2024 2:30 PM EDT Office Visit [facility] Hematology/BMT and Cellular Therapy Program [address] [address] Zonia Hoffman, GLOBAL LEAD 800 [facility] [address] [place] [address] 11/28/2024 4:00 PM EDT Appointment [facility] 1 [address] [place] [address] 11/29/2024 1:00 PM EDT Appointment [facility] 1 [address] [place] [address] 11/30/2024 1:00 PM EDT Appointment [facility] 1 [address] [place] [address] 12/01/2024 1:00 PM EDT Appointment [facility] 2 [address] [place] [address] 12/02/2024 2:30 PM EDT Appointment [facility] 2 [address] [place] [address] 12/03/2024 2:00 PM EDT Appointment [facility] 1 [address] [place] [address] 12/04/2024 1:00 PM EDT Appointment [facility] [address] [place] [address] Scheduled Orders Name Type Priority Associated Diagnoses [...] documented as of this encounter Care Teams Statistical Clerk Relationship Specialty Start Date End Date Jevon Vazquez MD [address] [place] [address] #1 #1 [place] [address] PCP - General 03/23/22 documented as of this encounter
--- OUTSIDE RECORDS SUMMARY | 2024-11-20 09:09 | XMS_ITS | Encounter Summary ---
Author Organization Healthcare Address [address] [place] [address] Care Team Providers Care Carbon Printer Name Role Phone Jevon Vazquez MD Primary Care Provider [phone] Encounter Details Date Type Department Care Team [...] Hematology/BMT and Cellular Therapy Program [address] [address] 11/28/2024 2:30 PM EDT Office Visit [facility] Hematology/BMT and Cellular Therapy Program [address] [address] Zonia Hoffman, OFFICE LEAD 800 [facility] [address] [place] [address] 11/28/2024 4:00 PM EDT Appointment [facility] 1 [address] [place] [address] 11/29/2024 1:00 PM EDT Appointment [facility] 1 [address] [place] [address] 11/30/2024 1:00 PM EDT Appointment [facility] 1 [address] [place] [address] 12/01/2024 1:00 PM EDT Appointment [facility] 2 [address] [place] [address] 12/02/2024 2:30 PM EDT Appointment [facility] 2 [address] [place] [address] 12/03/2024 2:00 PM EDT Appointment [facility] 1 [address] [place] [address] 12/04/2024 1:00 PM EDT Appointment [facility] [address] [place] [address] documented as of this encounter Visit Diagnoses Not on filedocumented in this encounter Additional Health Concerns Assessment Noted Time A fall risk assessment has been complete d for the patient 09/19/2024 8:38 AM EDT A Body Mass Index follow-up plan has been documented for the patient 05/28/2024 1:52 PM EST documented as of this encounter Care Teams Carbon Printer Relationship Specialty Start Date End Date Jevon Vazquez MD [address] [place] [address] #1 [address]1 [place] [address] PCP - General 03/23/22 documented as of this encounter
--- OUTSIDE RECORDS SUMMARY | 2024-11-20 09:09 | XMS_ITS | Encounter Summary ---
Author Organization Healthcare Address [address] [place] [address] Care Team Providers Care Ict Systems Test Engineer Name Role Phone Jevon Vazquez MD Primary Care Provider [phone] Encounter Details Date Type Department Care Team [...] Hematology/BMT and Cellular Therapy Program [address] [address] 11/28/2024 2:30 PM EDT Office Visit [facility] Hematology/BMT and Cellular Therapy Program [address] [address] Zonia Hoffman, MANAGER ENVIRONMENTAL AFFAIRS 800 [facility] [address] [place] [address] 11/28/2024 4:00 PM EDT Appointment [facility] 1 [address] [place] [address] 11/29/2024 1:00 PM EDT Appointment [facility] 1 [address] [place] [address] 11/30/2024 1:00 PM EDT Appointment [facility] 1 [address] [place] [address] 12/01/2024 1:00 PM EDT Appointment [facility] 2 [address] [place] [address] 12/02/2024 2:30 PM EDT Appointment [facility] 2 [address] [place] [address] 12/03/2024 2:00 PM EDT Appointment [facility] 1 [address] [place] [address] 12/04/2024 1:00 PM EDT Appointment [facility] [address] [place] [address] documented as of this encounter Visit Diagnoses Not on filedocumented in this encounter Additional Health Concerns Assessment Noted Time A fall risk assessment has been complete d for the patient 09/30/2024 9:33 AM EDT A Body Mass Index follow-up plan has been documented for the patient 05/28/2024 1:52 PM EST documented as of this encounter Care Teams Ict Systems Test Engineer Relationship Specialty Start Date End Date Jevon Vazquez MD [address] [place] [address] #1 [address] [place] [address] PCP - General 03/23/22 documented as of this encounter
--- OUTSIDE RECORDS SUMMARY | 2024-11-20 09:09 | XMS_ITS | Clinical Summary ---
Author Organization [facility] Address [address] 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) 11/12/2024 Travel 11/12/2024 Telephone [facility] H[facility]ology[facility] Cellular Therapy [facility] [address] [place] [address] [place] [phone] Zonia Hoffman, RODDY 11/11/2024 Travel 11/10/2024 Travel 11/09/2024 Travel 11/08/2024 Travel 11/08/2024 Refill [facility] Hematology/BMT and Cellular Therapy Program [address] [place] [phone] New Mckinney MD 11/07/2024 Travel 10/29/2024 Refill [facility]ology[facility]BMT [facility] Cellular Therapy Program [address] [phone] Zonia Hoffman, SENIOR ENERGY TRADER 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); Immunosuppressed status (CMS/HCC) 10/28/2024 Telephone [facility] Hematology/BMT and Cellular Therapy Program [address] [place] [phone] Zonia Hoffman, SENIOR ENERGY TRADER 10/27/2024 Telephone [facility]ology[facility]BMT [facility] Cellular Therapy Program [address] [phone] Zonia Hoffman, SENIOR ENERGY TRADER 10/27/2024 Travel 10/26/2024 Travel 10/24/2024 Travel 10/23/2024 Travel 10/22/2024 Travel 10/15/2024 Refill [facility]ology[facility]BMT [facility] Cellular Therapy Program [address] [place] [phone] New Mckinney MD 10/14/2024 Refill [facility]ology[facility]BMT [facility] Cellular Therapy Program [address] [place] [address] New Mckinney MD 10/13/2024 Telephone [facility]ology[facility]BMT [facility] Cellular Therapy Program [address] [phone] Zonia Hoffman, SENIOR ENERGY TRADER 10/13/2024 Travel 10/12/2024 Travel 10/11/2024 Travel 10/09/2024 Travel 10/08/2024 Travel 10/08/2024 Orders Only [facility] Hematology/BMT and Cellular Therapy Program [address] [place] [address] 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, repair tech 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) 10/07/2024 Travel 09/30/2024 9:30 AM EDT Office Visit [facility] Hematology/BMT and Cellular Therapy Program 750 [facility], [address] [place] [address] [place] [address] Zonia Hoffman APRN 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) 09/30/2024 9:00 AM EDT Clinical Support [facility] Hematology/BMT and Cellular Therapy Program 750 [facility], [address] [place] [address] [place] [phone] Jyoti Kemp 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) 09/30/2024 Telephone [facility] Hematology/BMT and Cellular Therapy Program 750 [facility], [address] [place] [address] [place] [phone] Zoraida Good RN 09/30/2024 Travel 09/29/2024 Travel 09/28/2024 Travel 09/27/2024 Travel 09/26/2024 Travel 09/25/2024 Travel 09/24/2024 Travel 09/23/2024 Travel 09/19/2024 12:00 PM EDT Procedure Visit [facility] Hematology/BMT and Cellular Therapy Program 750 [facility], [address] [place] [address] [place] [address] Lexi Ferraro, SENIOR ENERGY TRADER 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) 09/19/2024 9:30 AM EDT Clinical Support [facility] 800 [facility], [address]nd [place] [phone] 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) 09/19/2024 7:30 AM EDT Clinical Support [facility] Hematology/BMT and Cellular Therapy Program 750 [facility], [address] [place] [address] [place] [address] 09/19/2024 Telephone [facility] Hematology/BMT and Cellular Therapy Program 750 [facility], [address] [place] [phone] Romana Richmond RN 09/19/2024 Orders Only [facility] Hematology/BMT and Cellular Therapy Program [address] [place] [phone] 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 RN 09/19/2024 Travel 09/15/2024 Telephone [facility] Cellular Therapy [facility] [address] [place] [phone] Zonia Hoffman, SENIOR ENERGY TRADER 09/15/2024 Travel 09/14/2024 Travel 09/13/2024 Travel 09/12/2024 Travel 09/12/2024 Refill [facility] Cellular Therapy [facility] [address] [place] [phone] New Mckinney MD 09/11/2024 Travel 09/10/2024 Travel 09/01/2024 Telephone [facility] Cellular Therapy [facility] [address] [place] [phone] Zonia Hoffman, SENIOR ENERGY TRADER 08/31/2024 Travel 08/30/2024 Travel from Last 3 Months Immunizations Immunization [...] Hematology/BMT and Cellular Therapy Program [address] [phone] 11/28/2024 2:30 PM EDT Office Visit [facility] Therapy [facility] [address] [phone] Zonia Hoffman, SENIOR ENERGY TRADER 800 [facility] [address] [place] [phone] 11/28/2024 4:00 PM EDT Appointment [facility] [address] [place] [address] 11/29/2024 1:00 PM EDT Appointment [facility] 1 [address] [place] [address] 11/30/2024 1:00 PM EDT Appointment [facility] 1 [address] [place] [address] 12/01/2024 1:00 PM EDT Appointment [facility] 2 [address] [place] [address] 12/02/2024 2:30 PM EDT Appointment [facility] 2 [address] [place] [address] 12/03/2024 2:00 PM EDT Appointment [facility] [address] [place] [address] 12/04/2024 1:00 PM EDT Appointment [facility] Infusion [address] [place] [address] Health Maintenance Due Date Last Done Comments [...] UKY-Zoster Vaccines (1 of 2) 05/16/2023 03/21/2023 [id number] Vaccine ( season) 2023 02/18/2021, 07/10/2020, 06/12/2020 [...] this topic Medical Devices Implanted Type Area Foster Parent Device Identifier Shelf Expiration Date Model / Serial / Lot [place] [employer] 8fr - [id number] Implanted:Qty: 1 on 01/21/2024 [id number] / / Procedures Procedure Name Priority Date/Time [...] LAB HEMATOLOGY METHOD 09/30/2024 11:07 AM EDT [facility] RBC Count 1.91(L) 3.90 - 5.20 10*6/uL LAB HEMATOLOGY METHOD 09/30/2024 11:07 AM EDT [facility] HGB 7.7(L) 11.2 - 15.7 g/dL LAB HEMATOLOGY METHOD 09/30/2024 11:07 AM EDT [facility] HCT 22.8(L) 34.0 - 45.0 % LAB HEMATOLOGY METHOD 09/30/2024 11:07 AM EDT [facility] Platelet Count 17(LL) 155 - 369 10*3/uL LAB HEMATOLOGY METHOD 09/30/2024 11:07 AM EDT [facility] MCV 119(H) 79 - 98 fL LAB HEMATOLOGY METHOD 09/30/2024 11:07 AM EDT [facility] MCH 40.3(H) 26.0 - 32.0 pg LAB HEMATOLOGY METHOD 09/30/2024 11:07 AM EDT [facility] MCHC 33.8 30.7 - 35.5 g/dL LAB HEMATOLOGY METHOD 09/30/2024 11:07 AM EDT [facility] RDW 18.7(H) 11.5 - 14.5 % LAB HEMATOLOGY METHOD 09/30/2024 11:07 AM EDT [facility] MPV 11.1 8.8 - 12.5 fL LAB HEMATOLOGY METHOD 09/30/2024 11:07 AM EDT [facility] nRBC 0.0 <=0.0 per 100 WBCs LAB HEMATOLOGY METHOD 09/30/2024 11:07 AM EDT [facility] Differential Type Automated LAB HEMATOLOGY METHOD 09/30/2024 11:07 AM EDT [facility] Neutrophils % 65 % LAB HEMATOLOGY METHOD 09/30/2024 11:07 AM EDT [facility] Lymphocytes % 26 % LAB HEMATOLOGY METHOD 09/30/2024 11:07 AM EDT [facility] Monocytes % 7 % LAB HEMATOLOGY METHOD 09/30/2024 11:07 AM EDT [facility] Eosinophils % 1 % LAB HEMATOLOGY METHOD 09/30/2024 11:07 AM EDT [facility] Basophils % 1 % LAB HEMATOLOGY METHOD 09/30/2024 11:07 AM EDT [facility] Immature Granulocytes % 0 % LAB HEMATOLOGY METHOD 09/30/2024 11:07 AM EDT [facility] Neutrophils Absolute 2.17 1.60 - 6.10 10*3/uL LAB HEMATOLOGY METHOD 09/30/2024 11:07 AM EDT [facility] Lymphocytes Absolute 0.87(L) 1.20 - 3.90 10*3/uL LAB HEMATOLOGY METHOD 09/30/2024 11:07 AM EDT [facility] Monocytes Absolute 0.24(L) 0.30 - 0.90 10*3/uL LAB HEMATOLOGY METHOD 09/30/2024 11:07 AM EDT [facility] Eosinophils Absolute 0.03 0.00 - 0.50 10*3/uL LAB HEMATOLOGY METHOD 09/30/2024 11:07 AM EDT [facility] Basophils Absolute 0.02 0.00 - 0.10 10*3/uL LAB HEMATOLOGY METHOD 09/30/2024 11:07 AM EDT [facility] Immature Granulocytes Absolute 0.01 0.00 - 0.06 10*3/uL LAB HEMATOLOGY METHOD 09/30/2024 11:07 AM T [facility] Blood Venous blood specimen / Unknown (Port) Long-term Catheter / Unknown 09/30/2024 9:11 AM EDT 09/30/2024 9:34 AM EDT [facility] - 09/30/2024 11:07 AM EDT Therapeutic decision making should be based on absolute values, rather than percentages. us Zonia Hoffman APRN LAB BLOOD ORDERABLES Final Res ult [facility] [address] [place] [address] * (ABNORMAL) Comprehensive Metabolic Panel, Plasma (09/30/2024 9:11 AM EDT) Glucose, Plasma 135(H) 74 - 99 mg/dL 09/30/2024 10:20 AM EDT [facility] BUN, Plasma 21 8 - 23 mg/dL 09/30/2024 10:20 AM EDT [facility] Creatinine, Plasma 1.00 0.60 - 1.10 mg/dL 09/30/2024 10:20 AM EDT [facility] BUN/Creatinine Ratio 21 09/30/2024 10:20 AM EDT [facility] Sodium, Plasma 137 136 - 145 mmol/L 09/30/2024 10:20 AM EDT [facility] Potassium, Plasma 3.8 3.6 - 4.9 mmol/L 09/30/2024 10:20 AM EDT [facility] Chloride, Plasma 107 97 - 107 mmol/L 09/30/2024 10:20 AM EDT [facility] CO2, Plasma 22 22 - 29 mmol/L 09/30/2024 10:20 AM EDT [facility] Anion Gap 8 6 - 16 mmol/L 09/30/2024 10:20 AM EDT [facility] Total Calcium, Plasma 9.8 8.9 - 10.2 mg/dL 09/30/2024 10:20 AM EDT [facility] Total Protein 5.9(L) 6.3 - 7.9 g/dL 09/30/2024 10:20 AM EDT [facility] Albumin, Plasma 3.8 3.5 - 5.2 g/dL 09/30/2024 10:20 AM EDT [facility] AST, Plasma 28 10 - 35 U/L 09/30/2024 10:20 AM EDT [facility] ALT, Plasma 14 10 - 35 U/L 09/30/2024 10:20 AM EDT [facility] Alkaline Phosphatase, Plasma 34(L) 46 - 142 U/L 09/30/2024 10:20 AM EDT [facility] Total Bilirubin, Plasma 0.3 0.2 - 1.1 mg/dL 09/30/2024 10:20 AM EDT [facility] eGFRcr 59.6 mL/min/1.7 3m*2 09/30/2024 10:20 AM EDT [facility] Comment:Reported eGFRcr in m L/min/1.73m2 is based the CKD-EPI 2020 equation that does not use a race coefficient. Blood Venous blood specimen / Unknown (Port) Long-term Catheter / Unknown 09/30/2024 9:11 AM EDT 09/30/2024 9:50 AM EDT us Zonia Hoffman APRN LAB BLOOD ORDERABLES Final Res ult [facility] [address] [place] [address] * BIOPSY BONE MARROW (09/19/2024 12:00 PM [...] to surronding structures. Alternatives discussed: Delayed treatment [place] protocol: Procedure explained and questions answered to [...] LAB HEMATOLOGY METHOD 09/19/2024 10:19 AM EDT [facility] Blood Blood sample taken from central line / Unknown (Port) Long-term Catheter / Unknown 09/19/2024 10:04 AM EDT 09/19/2024 10:18 AM EDT New Mckinney MD LAB BLOOD ORDERABLES Final Re sult [facility] [address] [place] [address] * Transfuse platelets, Irradiated (09/19/2024 10:02 AM EDT) Lexi Ferraro APRN BLOOD TRANSFUSION ORDERABL ES Final Result * Prepare Leukocyte Reduced Platelets (09/19/2024 9:08 AM EDT) Product Code [id number] CH BLOO D BANK Dispense Status Transfused BLOOD BANK Blood Expiration Date [id number] BLOOD BANK Unit Number [id number] CH B LOOD BANK Product Blood Type 6200 BLOOD BANK Blood Type A+ BLOOD BANK us Provider Not In System BLOOD BANK PRODUCT ORD ERABLES Final Result BLOOD BANK [address] [place] [id number], * Myeloid Focused Panel, 50 gene (09/19/2024 7:29 AM EDT) Interpretation The following two (2) genes, TP53 and DNMT3A, with persistent variants have been detected in this bone marrow specimen. The variant, p.[id number], in TP53 gene and the variant, p.[id number], in the RUNX 1 gene are not detectable at current cutoff and coverage established in this lab. Gene: TP53 Mutation: c.814G>A; p.Mud708Oul Allele Frequency (%): 37% (45% Dec 2023) ID: [id number] Gene: DNMT3A Mutation: c.1522delC; p.[id number] 3 Allele Frequency (%): 36% (48% Dec 2023) Additional Details on Mutation Identified: Gene Transcript Genome Chrom Coordinate RefVar DNMT3A [id number] Hg19 2 [id number] delC TP53 [id number] Hg19 17 [id number] G>A 09/29/2024 4:05 PM EDT [facility] [...] Samples are then sequenced on the Illumina NextSeShopText 2000 ([employer] [place]). A custom bioinformatics pipeline aligns [...] of hematologic malignancies. 09/29/2024 4:05 PM EDT [facility] Disclaimer This test was developed and its performance characteristics determined by the Clinical Molecular and Genomic Pathology Laboratory at the [facility]. It has not been cleared or approved [...] clinical laboratory testing. 09/29/2024 4:05 PM EDT [facility] Pathologist Signature Reviewed by: Corey Tejada 09/29/2024 4:05 PM EDT [facility] Bone Marrow Specimen from bone marrow obtained by aspiration / Unknown Non-blood Collection / Unknown 09/19/2024 7:29 AM EDT 09/19/2024 12:03 PM EDT us New Mckinney MD LAB MOLECULAR DIAGNOSTICS ORD ERABLES Final Result [facility] [address] [place] [address], * Chromosome Karyotype, Oncology (09/19/2024 7:29 AM EDT) Specimen Type Bone Marrow 09/24/2024 2:37 PM EDT [facility] Clinical Indication Myelodysplastic Syndrome 09/24/2024 2:37 PM EDT [facility] Specimen Adequacy Adequate 025 2:37 PM EDT [facility] Chromosome Analysis Result Giemsa-banded metaphase cells from unstimulated bone marrow cultures showed a 46,XX[20] chromosome pattern. 09/24/2024 2:37 PM EDT [facility] Interpretation Normal female chromosome analysis. No clonal abnormalities were detected at current resolution. Clinical correlation is recommended. # cells counted = 20 # cells analyzed = 20 # cells karyotyped = 2 Band resolution: 450-525 09/24/2024 2:37 PM EDT [facility] Pathologist Signature Reviewed by: Corey Tejada 09/24/2024 2:37 PM EDT [facility] Bone Marrow Non-blood Collection / Unknown 09/19/2024 7:29 AM EDT 09/19/2024 12:35 PM EDT us New Mckinney MD LAB CYTOGENETICS ORDERABLES F inal Result [facility] [address] [place] [address] * Leukemia/Lymphoma - Immunophenotyping by Flow Cytometry (09/19/2024 7:29 AM EDT) Clinical Indication AML 09/22/2024 10:29 AM EDT [facility] Flow Cytometry Interpretation A. BONE MARROW FOR FLOW CYTOMETRY: - MIXED MARROW ELEMENTS WITH NO EVIDENCE OF INCREASED BLASTS OR ABNORMAL LYMPHOID POPULATIONS, SEE COMMENT. 09/22/2024 10:29 AM EDT [facility] Comments CD45/side scatter analysis shows a [...] surface light chains 09/22/2024 10:29 AM EDT [facility] Disclaimer This test was developed and its performance characteristics determined by the Immuno-Molecular Pathology Laboratory at the [facility]. It has not been cleared or approved [...] on the report. 09/22/2024 10:29 AM EDT [facility] Pathologist Signature Reviewed by: Lisandra Epstein MD 09/22/2024 10:29 AM EDT [facility] MRD Indicated Test Not Indicated 12/2024 10:29 AM EDT [facility] Bone Marrow Specimen from bone marrow obtained by aspiration / Unknown Non-blood Collection / Unknown 09/19/2024 7:29 AM EDT 09/19/2024 12:13 PM EDT us New Mckinney MD LAB FLOW CYTOMETRY ORDERABLES Final Result [facility] [address] [place] [address] * Bone marrow exam (09/19/2024 7:29 AM EDT) Case Report Bone Marrow Case: [id number] Authorizing Provider: New Mckinney MD Collected: 09/19/2024 0729 Ordering Location: [facility] Hematology/BMT and Received: 09/19/2024 1216 Cellular Therapy Program Pathologist: Lisandra Epstein MD Specimens: A) - Bone Marrow Aspirate, right B) - Bone Marrow Biopsy, right C) - Peripheral Blood for Bone Marrow 3:15 PM EDT [facility] Cytogenetics Report, Addendum Chromosome Analysis Result Giemsa-banded metaphase cells from unstimulated bone marrow cultures showed a 46,XX[20] chromosome pattern. Interpretation Normal female chromosome analysis. No clonal abnormalities were detected at current resolution. Clinical correlation is recommended. 3:15 PM EDT [facility] Addendum electronically signed by Lisandra Epstein MD on 09/24/2024 at 1630 EDT Addendum Interpretation The following two (2) genes, TP53 and DNMT3A, with persistent variants have been detected in this bone marrow specimen. The variant, p.Unq450Lym, in TP53 gene and the variant, p.[id number], in the RUNX 1 gene are not detectable at current cutoff and coverage established in this lab. Gene: TP53 Mutation: c.814G>A; p.[id number] Allele Frequency (%): 37% (45% Dec 2023) ID: [id number] Gene: DNMT3A Mutation: c.1522delC; p.Inz134LwtiaGmo9 43 Allele Frequency (%): 36% (48% Dec 2023) Additional Details on Mutation Identified: 3:15 PM EDT [facility] Addendum electronically signed by Lisandra Epstein MD on 09/30/2024 at 1515 EDT Final Diagnosis PERIPHERAL BLOOD AND BONE MARROW, RIGHT POSTERIOR ILIAC CREST, (ASPIRATE SMEAR, AND CORE BIOPSY): - HYPOCELLULAR BONE MARROW WITH MARKEDLY DECREASED MEGAKARYOCYTES; NO SIGNIFICANT DYSPOIESIS OR INCREASE IN BLASTS. 3:15 PM EDT [facility] at 1453 EDT Clinical Information AML 09/14 3:15 PM EDT [facility] CBC and Differential PERIPHERAL BLOOD: 09/19/2024: [...] blasts are not seen. 3:15 PM EDT [facility] Bone Marrow Differential BONE MARROW DIFFERENTIAL: 200 cells Normal Patient Neutrophils 15-50 34 Metamyelocytes 4-19 3 Myelocytes 1-18 10 Promyelocytes 1-8 1 Blasts 0-2 1 Monocytes 0-5 4 Erythroid 16-38 22 Lymphocytes 3-24 13 Eosinophils 0-6 8 Basophils 0-2 0 Plasma cells 0-4 4 Other 3:15 PM EDT [facility] Bone Marrow Aspirate and Biopsy The [...] Bone trabeculae are unremarkable. 3:15 PM EDT [facility] Special and Immunohistochemical Stains Special Stain: A1-1 Vazquez-Giemsa A1-2 Vazquez-Giemsa A1-3 Vazquez-Giemsa C1-1 Vazquez-Giemsa IHC: B1-2 CD34 All controls show appropriate reactivity. All immunohistochemis try, in situ hybridization, and histochemical tests were developed by and are performed at the [facility], [address] [place] [address]. All tests reported here, except those addressing [...] negativity on decalcified specimens. 3:15 PM EDT [facility] Flow Cytometry Interpretation MIXED MARROW ELEMENTS WITH NO EVIDENCE OF INCREASED BLASTS OR ABNORMAL LYMPHOID POPULATIONS ([id number]). 3:15 PM EDT [facility] CYTOGENETICS/MOLECULA R INTERPRETATION Correlation with cytogenetic/molec ular analysis is suggested. 3:15 PM EDT [facility] Gross Description B. RIGHT A single specimen is received in formalin labeled bone marrow biopsy right posterior iliac crest and consists of 2 piece(s) of red/white tissue measuring 2.1/0.3 cm in length 0.2 cm in diameter. The specimen is submitted in to Histology for decalcification and routine processing. Cold Time: <1m 3:15 PM EDT [facility] Note: A resident was involved in the service. I attest I examined the relevant preparations for the specimens and confirmed the diagnosis or interpretation. 3:15 PM EDT [facility] Bone Marrow Peripheral blood specimen / [...] PATHOLOGY ORDERABLES Edit ed Result - Final [facility] [address] [place] [address] * Hepatitis C Antibody w/Reflex to HCV Quant PCR (01/07/2024 8:42 AM EDT) Hepatitis C Antibody Negative Negative 01/07/2024 10:13 AM EDT [facility] Blood Venous blood specimen / Unknown Venipuncture / Unknown 01/07/2024 8:42 AM EDT 01/07/2024 9:25 AM EDT us New Mckinney MD LAB BLOOD ORDERABLES Final Re sult [facility] [address] [place] [address] from Last 3 Months or Most Recently Relevant to Health Maintenance Insurance MEDICARE ANTH Care Teams Snow Technician Relationship Specialty Start Date End Date Jevon Vazquez MD [address] [place] [address] #1 #1 [id number] PCP - General 03/23/22
--- OUTSIDE RECORDS SUMMARY | 2024-11-20 09:09 | XMS_ITS | Encounter Summary ---
Author Organization [facility] Address [address] [place] [address] Care Team Providers Care Applications Programmer Analyst Name Role Phone Jevon Vazquez MD Primary Care Provider [phone] Encounter Details Date Type Department Care Team ([facility] Contact Info) Description 11/12/2024 Telephone PAV CC Hematology/BMT and Cellular Therapy Program [address] [address] Zonia Hoffman, OUTBOUND TELEMARKETER 800 [facility] [address] [place] [address] Social History Tobacco Use Types Packs/Day Years [...] CC Hematology/BMT and Cellular Therapy Program 750 [facility] [place] [address] 11/28/2024 2:30 PM EDT Office Visit PAV Hematology/BMT and Cellular Therapy Program 750 [facility] [place] [address] Zonia Hoffman, OUTBOUND TELEMARKETER 800 [facility] [address] [place] [address] 11/28/2024 4:00 PM EDT Appointment [facility] 1 [address] [place] [address] 11/29/2024 1:00 PM EDT Appointment [facility] 1 [address] [place] [address] 11/30/2024 1:00 PM EDT Appointment [facility] 1 [address] [place] [address] 12/01/2024 1:00 PM EDT Appointment [facility] 2 [address] [place] [address] 12/02/2024 2:30 PM EDT Appointment [facility] 2 [address] [place] [address] 12/03/2024 2:00 PM EDT Appointment [facility] 1 [address] [place] [address] 12/04/2024 1:00 PM EDT Appointment [facility] Infusion [address] [place] [address] documented as of this encounter Visit Diagnoses Not on filedocumented in this encounter Additional Health Concerns Assessment Noted Time A fall risk assessment has been complete d for the patient 09/30/2024 9:33 AM EDT A Body Mass Index follow-up plan has been documented for the patient 05/28/2024 1:52 PM EST documented as of this encounter Care Teams Applications Programmer Analyst Relationship Specialty Start Date End Date Jevon Vazquez MD [address] [place] [address] #1 #1 [place] [address] PCP - General 03/23/22 documented as of this encounter
--- OUTSIDE RECORDS SUMMARY | 2024-11-20 09:09 | XMS_ITS | Encounter Summary ---
Author Organization [facility] Address [address] [place] [address] Care Team Providers Care Automotive Airconditioning Mechanic Name Role Phone Jevon Vazquez MD Primary Care Provider [phone] Encounter Details Date Type Department Care Team ([facility] Contact Info) Description 10/08/2024 Orders Only PAV CC Hematology/BMT and Cellular Therapy Program [address] [address] 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, RN [facility] Acute myeloid leukemia [...] Hematology/BMT and Cellular Therapy Program [address] [address] 11/28/2024 2:30 PM EDT Office Visit PAV CC Hematology/BMT and Cellular Therapy Program [address] [address] Zonia Hoffman, BUSGIRL 800 [facility] [address] [place] [address] 11/28/2024 4:00 PM EDT Appointment [facility] 1 [address] [place] [address] 11/29/2024 1:00 PM EDT Appointment [facility] 1 [address] [place] [address] 11/30/2024 1:00 PM EDT Appointment [facility] 1 [address] [place] [address] 12/01/2024 1:00 PM EDT Appointment [facility] 2 [address] [place] [address] 12/02/2024 2:30 PM EDT Appointment [facility] 2 [address] [place] [address] 12/03/2024 2:00 PM EDT Appointment [facility] 1 [address] [place] [address] 12/04/2024 1:00 PM EDT Appointment P[facility] H Infusion [address] [place] [address] Scheduled Orders Name Type Priority Associated Diagnoses [...] documented as of this encounter Care Teams Automotive Airconditioning Mechanic Relationship Specialty Start Date End Date Jevon Vazquez MD [address] [place] [address] #1 #1 [place] [address] PCP - General 03/23/22 documented as of this encounter
--- OUTSIDE RECORDS SUMMARY | 2024-11-20 09:09 | XMS_ITS | Encounter Summary ---
Author Organization Healthcare Address [address] [place] [address] Care Team Providers Care Crown Blocker Name Role Phone Jevon Vazquez MD Primary [...] Hematology/BMT and Cellular Therapy Program [address] [address] 11/28/2024 2:30 PM EDT Office Visit PAV CC Hematology/BMT and Cellular Therapy Program [address] [address] Zonia Hoffman, CIRCULAR SAWYER HELPER 800 [facility] [address] [place] [address] 11/28/2024 4:00 PM EDT Appointment [facility] 1 [address] [place] [address] 11/29/2024 1:00 PM EDT Appointment [facility] 1 [address] [place] [address] 11/30/2024 1:00 PM EDT Appointment [facility] 1 [address] [place] [address] 12/01/2024 1:00 PM EDT Appointment [facility] 2 [address] [place] [address] 12/02/2024 2:30 PM EDT Appointment [facility] 2 [address] [place] [address] 12/03/2024 2:00 PM EDT Appointment [facility] 1 [address] [place] [address] 12/04/2024 1:00 PM EDT Appointment [facility] Infusion [address] [place] [address] documented as of this encounter Visit Diagnoses Not on filedocumented in this encounter Additional Health Concerns Assessment Noted Time A fall risk assessment has been complete d for the patient 09/19/2024 8:38 AM EDT A Body Mass Index follow-up plan has been documented for the patient 05/28/2024 1:52 PM EST documented as of this encounter Care Teams Crown Blocker Relationship Specialty Start Date End Date Jevon Vazquez MD [address] [place] [address] #1 #1 [place] [address] PCP - General 03/23/22 documented as of this encounter
[2024-11-20 09:22] LABS: Albumin Level 3.6 g/dl (3.5-5.0); Chloride 105 mmol/L (98-107); Potassium 3.8 mmoL/L (3.5-5.1); Sodium 135 mmol/L (136-145)
[2024-11-20 09:25] LABS: Alanine Aminotransferase 12 U/L (12-78); Albumin/Globulin Ratio 1.7 (1.1-1.8); Alkaline Phosphatase 42 U/L (38-126); Anion Gap 9.8 mEq/L (5-15); Aspartate Amino Transferase 33 U/L (14-36); Bilirubin,Total 0.2 mg/dl (0.2-1.3); Blood Urea Nitrogen 23 mg/dl (7-17); Carbon Dioxide 24 mmol/L (22.0-30.0); Creatinine Clearance Estimated 45 mL/min (50-200); Creatinine,Serum 1.00 mg/dl (0.52-1.04); Estimated Glomerular Filt Rate 54 ml/min (>60); GFR (African American) 66 ML/MIN (>60); Globulin 2.1 g/dL (1.3-3.2); Hematocrit 23.7 % (37.0-47.0); Hemoglobin 8.2 g/dL (12.2-16.2); Immature Granulocytes % 0 %; Mean Corpuscular HGB Conc 34.6 g/dL (31.8-35.4); Mean Corpuscular Hemoglobin 35.0 pg (27.0-31.2); Mean Corpuscular Volume 101.3 fl (81-99); Nucleated Red Blood Cells % 0 %; Red Blood Count 2.34 M/mm3 (4.20-5.40); Total Protein,Serum 5.7 g/dl (6.3-8.2); White Blood Count 2.2 K/mm3 (4.8-10.8)
[2024-11-20 09:26] LABS: Calcium 9.2 mg/dl (8.4-10.2); Glucose 144 mg/dl (74-100)
[2024-11-20 09:29] LABS: Platelet Count 16 K/mm3 (142-424)
[2024-11-20] MEDS: SODIUM CHLORIDE 0.9% 10ML FLUSH SYRINGE 10 ML IV (10:15)
== END 2024-11-20 23:59 | disposition home or self-care (01) ==
LOC: INF 08:59
PROVIDERS: PCP Family Medicine; Visit Provider Internal Medicine Medical Oncology
DX: C92.00 Acute myeloblastic leukemia, not having achieved remission (principal)
CPT/HCPCS: 36591; 80053; 85025; J1642

== ENCOUNTER 2024-11-24 08:57 | Outpatient (CLI) | payer MEDICARE, BC, SELFPAY ==
--- OUTSIDE RECORDS SUMMARY | 2024-09-30 09:00 | XMS_ITS | Encounter Summary ---
Author Organization Healthcare Address [address] [place] [address] Care Team Providers Care Keypuncher Name Role Phone Jevon Vazquez MD Primary Care Provider [phone] Reason for Visit * Reason Comments Labs Only Encounter Details Date Type Department Care Team ([facility] Contact Info) Description 09/30/2024 9:00 AM EDT Clinical Support [facility] Hematology/BMT and Cellular Therapy Program [address] [phone] Jyoti Kemp Acute myeloid leukemia not having [...] Encounters Date Type Department Care Team ([facility] Contact Info) Description 11/28/2024 2:00 PM EDT Clinical Support [facility] Hematology/BMT and Cellular Therapy Program [address] [phone] 11/28/2024 2:30 PM EDT Office Visit [facility] Hematology/BMT and Cellular Therapy Program [address] [phone] Zonia Hoffman, CERAMIC TILE INSTALLER 800 [facility] [address] [place] [phone] 11/28/2024 4:00 PM EDT Appointment [facility] 1 [address] [place] [address] 11/29/2024 1:00 PM EDT Appointment [facility] 1 [address] [place] [address] 11/30/2024 1:00 PM EDT Appointment [facility] 1 [address] [place] [address] 12/01/2024 1:00 PM EDT Appointment [facility] 2 [address] [place] [address] 12/02/2024 2:30 PM EDT Appointment [facility] 2 [address] [place] [address] 12/03/2024 2:00 PM EDT Appointment [facility] 1 [address] [place] [address] 12/04/2024 1:00 PM EDT Appointment [facility] [address] [place] [address] documented as of this encounter Procedures Procedure [...] - 99 mg/dL 09/30/2024 10:20 AM EDT [facility] BUN, Plasma 21 8 - 23 mg/dL 09/30/2024 10:20 AM EDT [facility] Creatinine, Plasma 1.00 0.60 - 1.10 mg/dL 09/30/2024 10:20 AM EDT [facility] BUN/Creatinine Ratio 21 09/30/2024 10:20 AM EDT [facility] Sodium, Plasma 137 136 - 145 mmol/L 09/30/2024 10:20 AM EDT [facility] Potassium, Plasma 3.8 3.6 - 4.9 mmol/L 09/30/2024 10:20 AM EDT [facility] Chloride, Plasma 107 97 - 107 mmol/L 09/30/2024 10:20 AM EDT [facility] CO2, Plasma 22 22 - 29 mmol/L 09/30/2024 10:20 AM EDT [facility] Anion Gap 8 6 - 16 mmol/L 09/30/2024 10:20 AM EDT [facility] Total Calcium, Plasma 9.8 8.9 - 10.2 mg/dL 09/30/2024 10:20 AM EDT [facility] Total Protein 5.9(L) 6.3 - 7.9 g/dL 09/30/2024 10:20 AM EDT [facility] Albumin, Plasma 3.8 3.5 - 5.2 g/dL 09/30/2024 10:20 AM EDT [facility] AST, Plasma 28 10 - 35 U/L 09/30/2024 10:20 AM EDT [facility] ALT, Plasma 14 10 - 35 U/L 09/30/2024 10:20 AM EDT [facility] Alkaline Phosphatase, Plasma 34(L) 46 - 142 U/L 09/30/2024 10:20 AM EDT [facility] Total Bilirubin, Plasma 0.3 0.2 - 1.1 mg/dL 09/30/2024 10:20 AM EDT [facility] eGFRcr 59.6 mL/min/1.7 3m*2 09/30/2024 10:20 AM EDT [facility] Comment:Reported eGFRcr in m L/min/1.73m2 is based the CKD-EPI 2020 equation that does not use a race coefficient. Blood Venous blood specimen / Unknown (Port) Long-term Catheter / Unknown 09/30/2024 9:11 AM EDT 09/30/2024 9:50 AM EDT us Zonia Hoffman CERAMIC TILE INSTALLER LAB BLOOD ORDERABLES Final Res ult [facility] [address] [place] [address] * (ABNORMAL) CBC and Differential (09/30/2024 9:11 AM EDT) WBC Count 3.34(L) 3.70 - 10.30 10*3/uL LAB HEMATOLOGY METHOD 09/30/2024 11:07 AM EDT [facility] RBC Count 1.91(L) 3.90 - 5.20 10*6/uL LAB HEMATOLOGY METHOD 09/30/2024 11:07 AM EDT [facility] HGB 7.7(L) 11.2 - 15.7 g/dL LAB HEMATOLOGY METHOD 09/30/2024 11:07 AM EDT [facility] HCT 22.8(L) 34.0 - 45.0 % LAB HEMATOLOGY METHOD 09/30/2024 11:07 AM EDT [facility] Platelet Count 17(LL) 155 - 369 10*3/uL LAB HEMATOLOGY METHOD 09/30/2024 11:07 AM EDT [facility] MCV 119(H) 79 - 98 fL LAB HEMATOLOGY METHOD 09/30/2024 11:07 AM EDT [facility] MCH 40.3(H) 26.0 - 32.0 pg LAB HEMATOLOGY METHOD 09/30/2024 11:07 AM EDT [facility] MCHC 33.8 30.7 - 35.5 g/dL LAB HEMATOLOGY METHOD 09/30/2024 11:07 AM EDT [facility] RDW 18.7(H) 11.5 - 14.5 % LAB HEMATOLOGY METHOD 09/30/2024 11:07 AM EDT [facility] MPV 11.1 8.8 - 12.5 fL LAB HEMATOLOGY METHOD 09/30/2024 11:07 AM EDT [facility] nRBC 0.0 <=0.0 per 100 WBCs LAB HEMATOLOGY METHOD 09/30/2024 11:07 AM EDT [facility] Differential Type Automated LAB HEMATOLOGY METHOD 09/30/2024 11:07 AM EDT [facility] Neutrophils % 65 % LAB HEMATOLOGY METHOD 09/30/2024 11:07 AM EDT [facility] Lymphocytes % 26 % LAB HEMATOLOGY METHOD 09/30/2024 11:07 AM EDT [facility] Monocytes % 7 % LAB HEMATOLOGY METHOD 09/30/2024 11:07 AM EDT [facility] Eosinophils % 1 % LAB HEMATOLOGY METHOD 09/30/2024 11:07 AM EDT [facility] Basophils % 1 % LAB HEMATOLOGY METHOD 09/30/2024 11:07 AM EDT [facility] Immature Granulocytes % 0 % LAB HEMATOLOGY METHOD 09/30/2024 11:07 AM EDT [facility] Neutrophils Absolute 2.17 1.60 - 6.10 10*3/uL LAB HEMATOLOGY METHOD 09/30/2024 11:07 AM EDT [facility] Lymphocytes Absolute 0.87(L) 1.20 - 3.90 10*3/uL LAB HEMATOLOGY METHOD 09/30/2024 11:07 AM EDT [facility] Monocytes Absolute 0.24(L) 0.30 - 0.90 10*3/uL LAB HEMATOLOGY METHOD 09/30/2024 11:07 AM EDT [facility] Eosinophils Absolute 0.03 0.00 - 0.50 10*3/uL LAB HEMATOLOGY METHOD 09/30/2024 11:07 AM EDT [facility] Basophils Absolute 0.02 0.00 - 0.10 10*3/uL LAB HEMATOLOGY METHOD 09/30/2024 11:07 AM EDT [facility] Immature Granulocytes Absolute 0.01 0.00 - 0.06 10*3/uL LAB HEMATOLOGY METHOD 09/30/2024 11:07 AM EDT [facility] Blood Venous blood specimen / Unknown (Port) Long-term Catheter / Unknown 09/30/2024 9:11 AM EDT 09/30/2024 9:34 AM EDT [facility] - 09/30/2024 11:07 AM EDT Therapeutic decision making should be based on absolute values, rather than percentages. 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
--- OUTSIDE RECORDS SUMMARY | 2024-09-30 09:30 | XMS_ITS | Encounter Summary ---
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 female. Referring Physician: Zonia Hoffman, PLATFORM ARCHITECT 800 [facility] [address] [address] Primary Care Provider: Jevon Vazquez MD Chief [...] k/??L. 12/2023- seen by Dr. 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 Next generation sequencing: Abnormal: TP53 (c.814G>A; p.[id number]) frequency 45%, DMNT3A (c.1522delC; p.[id number]) frequency 48%, RUNX1 (c.336_338delGCC; p.Ywv462vmq) frequency 35% Azacitidine + Venetoclax Cycle 1: [...] - Continue local lab checks MWF at [facility] Allogenic transplant planning. 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 However, given her older age > 70, she would benefit from a geriatric BMT program and will make referrals should she be interested. Expected pancytopenia related to chemotherapy/AML. Check CBC x 3 times/week at [facility] Labs reviewed today, Hgb 7.7 [...] charts, reviewing results, and documenting. RODDY Cristina [facility] HEMATOLOGY/BMT AND CELLULAR THERAPY PROGRAM 800 [facility] [address] 40 minutes was spent on this encounter; [...] Upcoming Encounters Date Type Department Care Team ([facility] st Contact Info) Description 11/28/2024 2:00 PM EDT Clinical Support [facility] Hematology/BMT and Cellular Therapy Program 750 [facility], [address] [place] [address] [place] [address] 11/28/2024 2:30 PM EDT Office Visit [facility] Hematology/BMT and Cellular Therapy Program [address] [place] [address] Zonia Hoffman, PLATFORM ARCHITECT [address] [facility] [address] [place] [phone] 11/28/2024 4:00 PM EDT Appointment [facility] 1 [address] [place] [address] 11/29/2024 1:00 PM EDT Appointment [facility] 1 [address] [place] [address] 11/30/2024 1:00 PM EDT Appointment [facility] 1 [address] [place] [address] 12/01/2024 1:00 PM EDT Appointment [facility] 2 [address] [place] [address] 12/02/2024 2:30 PM EDT Appointment [facility] 2 [address] [place] [address] 12/03/2024 2:00 PM EDT Appointment [facility] 1 [address] [place] [address] 12/04/2024 1:00 PM EDT Appointment [facility] 800 [place] [address] documented as of this encounter Results * (ABNORMAL) Comprehensive Metabolic Panel, Plasma (09/30/2024 9:11 AM EDT) [facility] Glucose, Plasma 135(H) 74 - 99 mg/dL 09/30/2024 10:20 AM EDT [facility] BUN, Plasma 21 8 - 23 mg/dL 09/30/2024 10:20 AM EDT [facility] Creatinine, Plasma 1.00 0.60 - 1.10 mg/dL 09/30/2024 10:20 AM EDT [facility] BUN/Creatinine Ratio 21 09/30/2024 10:20 AM EDT [facility] Sodium, Plasma 137 136 - 145 mmol/L 09/30/2024 10:20 AM EDT [facility] Potassium, Plasma 3.8 3.6 - 4.9 mmol/L 09/30/2024 10:20 AM EDT [facility] Chloride, Plasma 107 97 - 107 mmol/L 09/30/2024 10:20 AM EDT [facility] CO2, Plasma 22 22 - 29 mmol/L 09/30/2024 10:20 AM EDT [facility] Anion Gap 8 6 - 16 mmol/L 09/30/2024 10:20 AM EDT [facility] Total Calcium, Plasma 9.8 8.9 - 10.2 mg/dL 09/30/2024 10:20 AM EDT [facility] Total Protein 5.9(L) 6.3 - 7.9 g/dL 09/30/2024 10:20 AM EDT [facility] Albumin, Plasma 3.8 3.5 - 5.2 g/dL 09/30/2024 10:20 AM EDT [facility] AST, Plasma 28 10 - 35 U/L 09/30/2024 10:20 AM EDT [facility] ALT, Plasma 14 10 - 35 U/L 09/30/2024 10:20 AM EDT [facility] Alkaline Phosphatase, Plasma 34(L) 46 - 142 U/L 09/30/2024 10:20 AM EDT [facility] Total Bilirubin, Plasma 0.3 0.2 - 1.1 mg/dL 09/30/2024 10:20 AM EDT [facility] eGFRcr 59.6 mL/min/1.7 3m*2 09/30/2024 10:20 AM EDT [facility] Comment:Reported eGFRcr in m L/min/1.73m2 is based the CKD-EPI 2020 equation that does not use a race coefficient. Blood Venous blood specimen / Unknown (Port) Long-term Catheter / Unknown 09/30/2024 9:11 AM EDT 09/30/2024 9:50 AM EDT us Zonia Hoffman APRN LAB BLOOD ORDERABLES Final Res ult [facility] 800 [place] [address] * (ABNORMAL) CBC and Differential (09/30/2024 9:11 AM EDT) WBC Count 3.34(L) 3.70 - 10.30 10*3/uL LAB HEMATOLOGY METHOD 09/30/2024 11:07 AM EDT [facility] RBC Count 1.91(L) 3.90 - 5.20 10*6/uL LAB HEMATOLOGY METHOD 09/30/2024 11:07 AM EDT [facility] HGB 7.7(L) 11.2 - 15.7 g/dL LAB HEMATOLOGY METHOD 09/30/2024 11:07 AM EDT [facility] HCT 22.8(L) 34.0 - 45.0 % LAB HEMATOLOGY METHOD 09/30/2024 11:07 AM EDT [facility] Platelet Count 17(LL) 155 - 369 10*3/uL LAB HEMATOLOGY METHOD 09/30/2024 11:07 AM EDT [facility] MCV 119(H) 79 - 98 fL LAB HEMATOLOGY METHOD 09/30/2024 11:07 AM EDT [facility] MCH 40.3(H) 26.0 - 32.0 pg LAB HEMATOLOGY METHOD 09/30/2024 11:07 AM EDT [facility] MCHC 33.8 30.7 - 35.5 g/dL LAB HEMATOLOGY METHOD 09/30/2024 11:07 AM EDT [facility] RDW 18.7(H) 11.5 - 14.5 % LAB HEMATOLOGY METHOD 09/30/2024 11:07 AM EDT [facility] MPV 11.1 8.8 - 12.5 fL LAB HEMATOLOGY METHOD 09/30/2024 11:07 AM EDT [facility] nRBC 0.0 <=0.0 per 100 WBCs LAB HEMATOLOGY METHOD 09/30/2024 11:07 AM EDT [facility] Differential Type Automated LAB HEMATOLOGY METHOD 09/30/2024 11:07 AM EDT [facility] Neutrophils % 65 % LAB HEMATOLOGY METHOD 09/30/2024 11:07 AM EDT [facility] Lymphocytes % 26 % LAB HEMATOLOGY METHOD 09/30/2024 11:07 AM EDT [facility] Monocytes % 7 % LAB HEMATOLOGY METHOD 09/30/2024 11:07 AM EDT [facility] Eosinophils % 1 % LAB HEMATOLOGY METHOD 09/30/2024 11:07 AM EDT [facility] Basophils % 1 % LAB HEMATOLOGY METHOD 09/30/2024 11:07 AM EDT [facility] Immature Granulocytes % 0 % LAB HEMATOLOGY METHOD 09/30/2024 11:07 AM EDT [facility] Neutrophils Absolute 2.17 1.60 - 6.10 10*3/uL LAB HEMATOLOGY METHOD 09/30/2024 11:07 AM EDT [facility] Lymphocytes Absolute 0.87(L) 1.20 - 3.90 10*3/uL LAB HEMATOLOGY METHOD 09/30/2024 11:07 AM EDT [facility] Monocytes Absolute 0.24(L) 0.30 - 0.90 10*3/uL LAB HEMATOLOGY METHOD 09/30/2024 11:07 AM EDT [facility] Eosinophils Absolute 0.03 0.00 - 0.50 10*3/uL LAB HEMATOLOGY METHOD 09/30/2024 11:07 AM EDT [facility] Basophils Absolute 0.02 0.00 - 0.10 10*3/uL LAB HEMATOLOGY METHOD 09/30/2024 11:07 AM EDT [facility] Immature Granulocytes Absolute 0.01 0.00 - 0.06 10*3/uL LAB HEMATOLOGY METHOD 09/30/2024 11:07 AM EDT [facility] Blood Venous blood specimen / Unknown (Port) Long-term Catheter / Unknown 09/30/2024 9:11 AM EDT 09/30/2024 9:34 AM EDT Narrative [facility] - 09/30/2024 11:07 AM EDT Therapeutic decision making should be based on absolute values, rather than percentages. us Zonia Hoffman APRN LAB BLOOD ORDERABLES Final Res ult [facility] [address] [place] [address] documented in this encounter Visit Diagnoses Diagnosis [...] documented as of this encounter Care Teams Pad Assembler Relationship Specialty Start Date End Date Jevon Vazquez MD [address] [place] [address] #1 #1 [place] [address] PCP - General 03/23/22 documented as of this encounter
[2024-11-24] VITALS (11 sets, daily range): BP systolic 109–129; BP diastolic 46–65; PULSE 73–80; RESP 14–16; TEMP 36.5–36.8; O2SAT 98–100; BMI 22.1
--- OUTSIDE RECORDS SUMMARY | 2024-11-24 09:01 | XMS_ITS | Encounter Summary ---
Author Organization [facility] Address [address] [place] [address] Care Team Providers Care Linesperson Name Role Phone Jevon Vazquez MD Primary Care Provider [phone] Encounter Details Date Type Department Care Team [...] Hematology/BMT and Cellular Therapy Program [address] [address] 11/28/2024 2:30 PM EDT Office Visit PAV CC Hematology/BMT and Cellular Therapy Program [address] [address] Zonia Hoffman, PHYSICAL EDUCATION AIDE 800 [facility] [address] [place] [address] 11/28/2024 4:00 PM EDT Appointment [facility] 1 [address] [place] [address] 11/29/2024 1:00 PM EDT Appointment [facility] 1 [address] [place] [address] 11/30/2024 1:00 PM EDT Appointment [facility] 1 [address] [place] [address] 12/01/2024 1:00 PM EDT Appointment [facility] 2 [address] [place] [address] 12/02/2024 2:30 PM EDT Appointment [facility] 2 [address] [place] [address] 12/03/2024 2:00 PM EDT Appointment [facility] 1 [address] [place] [address] 12/04/2024 1:00 PM EDT Appointment [facility] Infusion [address] [place] [address] documented as of this encounter Visit Diagnoses Not on filedocumented in this encounter Additional Health Concerns Assessment Noted Time A fall risk assessment has been complete d for the patient 09/30/2024 9:33 AM EDT A Body Mass Index follow-up plan has been documented for the patient 05/28/2024 1:52 PM EST documented as of this encounter Care Teams Linesperson Relationship Specialty Start Date End Date Jevno Vazquez MD [address] [place] [address] #1 #1 [place] [address] PCP - General 03/23/22 documented as of this encounter
--- OUTSIDE RECORDS SUMMARY | 2024-11-24 09:02 | XMS_ITS | Encounter Summary ---
Author Organization Healthcare Address [address] [place] [address] Care Team Providers Care Associate Trainer Name Role Phone Jevon Vazquez MD Primary Care Provider [phone] Encounter Details Date Type Department Care Team [...] Hematology/BMT and Cellular Therapy Program [address] [address] 11/28/2024 2:30 PM EDT Office Visit PAV CC Hematology/BMT and Cellular Therapy Program [address] [address] Zonia Hoffman, GREEN BUILDING ENERGY ENGINEER 800 [facility] [address] [place] [address] 11/28/2024 4:00 PM EDT Appointment [facility] 1 [address] [place] [address] 11/29/2024 1:00 PM EDT Appointment [facility] 1 [address] [place] [address] 11/30/2024 1:00 PM EDT Appointment [facility] 1 [address] [place] [address] 12/01/2024 1:00 PM EDT Appointment [facility] 2 [address] [place] [address] 12/02/2024 2:30 PM EDT Appointment [facility] 2 [address] [place] [address] 12/03/2024 2:00 PM EDT Appointment [facility] 1 [address] [place] [address] 12/04/2024 1:00 PM EDT Appointment [facility] Infusion [address] [place] [address] documented as of this encounter Visit Diagnoses Not on filedocumented in this encounter Additional Health Concerns Assessment Noted Time A fall risk assessment has been complete d for the patient 09/30/2024 9:33 AM EDT A Body Mass Index follow-up plan has been documented for the patient 05/28/2024 1:52 PM EST documented as of this encounter Care Teams Associate Trainer Relationship Specialty Start Date End Date Jevon Vazquez MD [address] [place] [address] #1 #1 [place] [address] PCP - General 03/23/22 documented as of this encounter
--- OUTSIDE RECORDS SUMMARY | 2024-11-24 09:02 | XMS_ITS | Encounter Summary ---
Author Organization Healthcare Address [address] [place] [address] Care Team Providers Care Body Wirer Name Role Phone Jevon Vazquez MD Primary Care Provider [phone] Encounter Details Date Type Department Care Team ([facility] st Contact Info) Description 10/13/2024 Telephone PAV CC Hematology/BMT and Cellular Therapy Program [address] [address] Zonia Hoffman, CONSULTING SERVICES ASSOCIATE 800 [facility] [address] [place] [address] Social History Tobacco Use Types Packs/Day Years [...] needs to be delayed again Callback number: [phone] documented in this encounter Plan of Treatment Upcoming Encounters Date Type Department Care Team ([facility] st Contact Info) Description 11/28/2024 2:00 PM EDT Clinical Support PAV CC Hematology/BMT and Cellular Therapy Program [address] [address] 11/28/2024 2:30 PM EDT Office Visit PAV CC Hematology/BMT and Cellular Therapy Program [address] [address] Zonia Hoffman, CONSULTING SERVICES ASSOCIATE 800 [facility] [address] [place] [address] 11/28/2024 4:00 PM EDT Appointment [facility] 1 [address] [place] [address] 11/29/2024 1:00 PM EDT Appointment [facility] 1 [address] [place] [address] 11/30/2024 1:00 PM EDT Appointment [facility] 1 [address] [place] [address] 12/01/2024 1:00 PM EDT Appointment [facility] 2 [address] [place] [address] 12/02/2024 2:30 PM EDT Appointment [facility] 2 [address] [place] [address] 12/03/2024 2:00 PM EDT Appointment [facility] 1 [address] [place] [address] 12/04/2024 1:00 PM EDT Appointment [facility] Infusion [address] [place] [address] documented as of this encounter Visit Diagnoses Not on filedocumented in this encounter Additional Health Concerns Assessment Noted Time A fall risk assessment has been complete d for the patient 09/30/2024 9:33 AM EDT A Body Mass Index follow-up plan has been documented for the patient 05/28/2024 1:52 PM EST documented as of this encounter Care Teams Body Wirer Relationship Specialty Start Date End Date Jevon Vazquez MD [address] [place] [address] #1 #1 [place] [address] PCP - General 03/23/22 documented as of this encounter
--- OUTSIDE RECORDS SUMMARY | 2024-11-24 09:02 | XMS_ITS | Encounter Summary ---
Author Organization [facility] Address [address] [place] [address] Care Team Providers Care Teenage Babysitter Name Role Phone Jevon Vazquez MD Primary Care Provider [phone] Encounter Details Date Type Department Care Team ([facility] Contact Info) Description 10/29/2024 Refill P[facility] CC Hematology/BMT and Cellular Therapy Program [address] [address] Zonia Hoffman, INSURANCE ATTORNEY 800 [facility] [address] [place] [address] Acute myeloid leukemia not having achieved remission [...] Upcoming Encounters Date Type Department Care Team ([facility] Contact Info) Description 11/28/2024 2:00 PM EDT Clinical Support PAV CC Hematology/BMT and Cellular Therapy Program [address] [address] 11/28/2024 2:30 PM EDT Office Visit PAV CC Hematology/BMT and Cellular Therapy Program [address] [place] [address] Zonia Hoffman, INSURANCE ATTORNEY 800 [facility] [address] [place] [address] 11/28/2024 4:00 PM EDT Appointment [facility] 1 [address] [place] [address] 11/29/2024 1:00 PM EDT Appointment [facility] 1 [address] [place] [address] 11/30/2024 1:00 PM EDT Appointment [facility] 1 [address] [place] [address] 12/01/2024 1:00 PM EDT Appointment [facility] 2 [address] [place] [address] 12/02/2024 2:30 PM EDT Appointment [facility] 2 [address] [place] [address] 12/03/2024 2:00 PM EDT Appointment [facility] 1 [address] [place] [address] 12/04/2024 1:00 PM EDT Appointment P[facility] H Infusion [address] [place] [address] documented as of this encounter Visit Diagnoses [...] documented as of this encounter Care Teams Teenage Babysitter Relationship Specialty Start Date End Date Jevon Vazquez MD [address] [place] [address] #1 #1 [place] [address] PCP - General 03/23/22 documented as of this encounter
--- OUTSIDE RECORDS SUMMARY | 2024-11-24 09:02 | XMS_ITS | Encounter Summary ---
Author Organization Healthcare Address [address] [place] [address] Care Team Providers Care Weeder Thinner Name Role Phone Jevon Vazquez MD Primary Care Provider [phone] Encounter Details Date Type Department Care Team (Late Contact Info) Description 09/30/2024 Telephone PAV CC Hematology/BMT and Cellular Therapy Program [address] [place] [address] Zoraida Good, RN [facility] Social History Tobacco [...] Miscellaneous Notes * Clinician Note - Zoraida Godo RN - 09/30/2024 11:42 AM EDT Critical [...] and Cellular Therapy Program 750 [facility] [address] [place] [address] [place] [address] 11/28/2024 2:30 PM EDT Office Visit PAV CC Hematology/BMT and Cellular Therapy Program 750 [facility] [place] [address] Zonia Hoffman, SENIOR ORACLE APPLICATIONS DEVELOPER 800 [facility] [address] [place] [address] 11/28/2024 4:00 PM EDT Appointment [facility] 1 [address] [place] [address] 11/29/2024 1:00 PM EDT Appointment [facility] 1 [address] [place] [address] 11/30/2024 1:00 PM EDT Appointment [facility] 1 [address] [place] [address] 12/01/2024 1:00 PM EDT Appointment [facility] 2 [address] [place] [address] 12/02/2024 2:30 PM EDT Appointment [facility] 2 [address] [place] [address] 12/03/2024 2:00 PM EDT Appointment [facility] 1 [address] [place] [address] 12/04/2024 1:00 PM EDT Appointment [facility] Infusion [address] [place] [address] documented as of this encounter Visit Diagnoses Not on filedocumented in this encounter Additional Health Concerns Assessment Noted Time A fall risk assessment has been complete d for the patient 09/30/2024 9:33 AM EDT A Body Mass Index follow-up plan has been documented for the patient 05/28/2024 1:52 PM EST documented as of this encounter Care Teams Weeder Thinner Relationship Specialty Start Date End Date Jevon Vazquez MD [address] [place] [address] #1 #1 [place] [address] PCP - General 03/23/22 documented as of this encounter
--- OUTSIDE RECORDS SUMMARY | 2024-11-24 09:02 | XMS_ITS | Encounter Summary ---
Author Organization Healthcare Address [address] [place] [address] Care Team Providers Care Oil Field Roustabout Name Role Phone Jevon Vazquez MD Primary Care Provider [phone] Encounter Details Date Type Department Care Team (Latest Contact Info) Description 11/22/2024 Travel Social History Tobacco Use Types Packs/Day [...] Hematology/BMT and Cellular Therapy Program [address] [address] 11/28/2024 2:30 PM EDT Office Visit [facility] CC Hematology/BMT and Cellular Therapy Program [address] [address] Zonia Hoffman, LAB TECHNICIAN 800 [facility] [address] [place] [address] 11/28/2024 4:00 PM EDT Appointment [facility] 1 [address] [place] [address] 11/29/2024 1:00 PM EDT Appointment [facility] 1 [address] [place] [address] 11/30/2024 1:00 PM EDT Appointment [facility] 1 [address] [place] [address] 12/01/2024 1:00 PM EDT Appointment [facility] 2 [address] [place] [address] 12/02/2024 2:30 PM EDT Appointment [facility] 2 [address] [place] [address] 12/03/2024 2:00 PM EDT Appointment [facility] 1 [address] [place] [address] 12/04/2024 1:00 PM EDT Appointment [facility] Infusion [address] [place] [address] documented as of this encounter Visit Diagnoses Not on filedocumented in this encounter Additional Health Concerns Assessment Noted Time A fall risk assessment has been complete d for the patient 09/30/2024 9:33 AM EDT A Body Mass Index follow-up plan has been documented for the patient 05/28/2024 1:52 PM EST documented as of this encounter Care Teams Oil Field Roustabout Relationship Specialty Start Date End Date Jevon Vazquez MD [address] [place] [address] #1 #1 [place] [address] PCP - General 03/23/22 documented as of this encounter
--- OUTSIDE RECORDS SUMMARY | 2024-11-24 09:02 | XMS_ITS | Clinical Summary ---
Author Organization [facility] Address [address] [place] [address] Care Team Providers Care Brazing Furnace Operator Name Role Phone Jevon Vazquez MD Primary Care Provider [phone] Allergies No known active allergies Medications amLODIPine [...] Encounters Date Type Department Care Team Description 11/23/2024 Travel 11/22/2024 Travel 11/13/2024 Orders Only [facility] Hematology/BMT and Cellular Therapy Program 750 [facility], [address] [place] [address] [place] [address] 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, securities 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) 11/12/2024 Travel 11/12/2024 Telephone [facility] Hematology/BMT and Cellular Therapy Program 750 [facility], [address] [facility] [place] [address] Zonia Hoffman, RODDY 11/11/2024 Travel 11/10/2024 Travel 11/09/2024 Travel 11/08/2024 Travel 11/08/2024 Refill [facility] Hematology/BMT and Cellular Therapy Program [address] [place] [phone] New Mckinney MD 11/07/2024 Travel 10/29/2024 Refill [facility] Hematology/BMT and Cellular Therapy Program [address] [phone] Zonia Hoffman, URBAN DESIGNER 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); Immunosuppressed status (CMS/HCC) 10/28/2024 Telephone [facility] Hematology/BMT and Cellular Therapy Program [address] [phone] Zonia Hoffman, URBAN DESIGNER 10/27/2024 Telephone [facility] Hematology/BMT and Cellular Therapy Program [address] [phone] Zonia Hoffman, URBAN DESIGNER 10/27/2024 Travel 10/26/2024 Travel 10/24/2024 Travel 10/23/2024 Travel 10/22/2024 Travel 10/15/2024 Refill [facility] Hematology/BMT and Cellular Therapy Program [address] [phone] New Mckinney MD 10/14/2024 Refill [facility] Hematology/BMT and Cellular Therapy Program [address] [phone] New Mckinney MD 10/13/2024 Telephone [facility] Hematology/BMT and Cellular Therapy Program [address] [phone] Zonia Hoffman, URBAN DESIGNER 10/13/2024 Travel 10/12/2024 Travel 10/11/2024 Travel 10/09/2024 Travel 10/08/2024 Travel 10/08/2024 Orders Only [facility] Hematology/BMT and Cellular Therapy Program 750 [facility], [address] [place] [phone] 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, securities 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) 10/07/2024 Travel 09/30/2024 9:30 AM EDT Office Visit [facility] Hematology/BMT and Cellular Therapy Program 750 [facility], [address] [place] [phone] Zonia Hoffman APRN 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) 09/30/2024 9:00 AM EDT Clinical Support [facility] Hematology/BMT and Cellular Therapy Program 750 [facility], [address] [place] [phone] Jyoti Kemp Acute myeloid leukemia not having achieved remission (CMS/HCC) 09/30/2024 Telephone [facility] Hematology/BMT and Cellular Therapy Program 750 [facility], [address] [place] [phone] Zoraida Good RN 09/30/2024 Travel 09/29/2024 Travel 09/28/2024 Travel 09/27/2024 Travel 09/26/2024 Travel 09/25/2024 Travel 09/24/2024 Travel 09/23/2024 Travel 09/19/2024 12:00 PM EDT Procedure Visit [facility] Hematology/BMT and Cellular Therapy Program 750 [facility], [address] [place] [phone] Lexi Ferraro, RODDY Acute myeloid leukemia not having achieved remission (CMS/HCC) 09/19/2024 9:30 AM EDT Clinical Support [facility] [address] [facility], [address] [place] [phone] 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) 09/19/2024 7:30 AM EDT Clinical Support [facility] Hematology/BMT and Cellular Therapy Program 750 [facility], [address] [place] [phone] 09/19/2024 Telephone [facility] Hematology/BMT and Cellular Therapy Program [address] [facility], [address] [place] [phone] Romana Richmond, AKBAR 09/19/2024 Orders Only [facility] Hematology/BMT and Cellular Therapy Program 750 [facility], [address] [place] [phone] 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 RN 09/19/2024 Travel 09/15/2024 Telephone [facility] Hematology/BMT and Cellular Therapy Program 750 [facility], [address] [place] [phone] Zonia Hoffman, URBAN DESIGNER 09/15/2024 Travel 09/14/2024 Travel 09/13/2024 Travel 09/12/2024 Travel 09/12/2024 Refill [facility] Hematology/BMT and Cellular Therapy Program [address] [place] [address], [address] [place] [phone] New Mckinney MD 09/11/2024 Travel 09/10/2024 Travel 09/01/2024 Telephone [facility] Hematology/BMT and Cellular Therapy Program [address] [place] [address], [address] [place] [phone] Zonia Hoffman, URBAN DESIGNER 08/31/2024 Travel 08/30/2024 Travel from Last 3 [...] Hematology/BMT and Cellular Therapy Program [address] [phone] 11/28/2024 2:30 PM EDT Office Visit [facility] Hematology/BMT and Cellular Therapy Program [address] [phone] Zonia Hoffman, URBAN DESIGNER 800 [facility] [address] [place] [phone] 11/28/2024 4:00 PM EDT Appointment [facility] Infusion Clinic 1 [address] [place] [address] 11/29/2024 1:00 PM EDT Appointment [facility] 1 [address] [place] [address] 11/30/2024 1:00 PM EDT Appointment [facility] 1 [address] [place] [address] 12/01/2024 1:00 PM EDT Appointment [facility] 2 [address] [place] [address] 12/02/2024 2:30 PM EDT Appointment [facility] 2 [address] [place] [address] 12/03/2024 2:00 PM EDT Appointment [facility] 1 [address] [place] [address] 12/04/2024 1:00 PM EDT Appointment [facility] Infusion [address] [place] [address] Health Maintenance Due Date Last Done Comments [...] UKY-Zoster Vaccines (1 of 2) 05/16/2023 03/21/2023 [id number] Vaccine ( season) 2023 02/18/2021, 07/10/2020, 06/12/2020 [...] this topic Medical Devices Implanted Type Area Material Chaser Device Identifier Shelf Expiration Date Model / Serial / Lot Port Clearvue Power 8fr - [id number] Implanted:Qty: 1 on 01/21/2024 [id number] / / Procedures Procedure Name Priority Date/Time [...] ult [facility] [address] [place] [address] * (ABNORMAL) Comprehensive Metabolic Panel, Plasma (09/30/2024 [...] [facility] [address] [place] [address] * BIOPSY BONE MARROW (09/19/2024 12:00 PM [...] to surronding structures. Alternatives discussed: Delayed treatment [place] protocol: Procedure explained and questions answered to [...] LAB HEMATOLOGY METHOD 09/19/2024 10:19 AM EDT [facility] Blood Blood sample taken from central line / Unknown (Port) Long-term Catheter / Unknown 09/19/2024 10:04 AM EDT 09/19/2024 10:18 AM EDT New Mckinney MD LAB BLOOD ORDERABLES Final Re sult [facility] [address] [place] [address] * Transfuse platelets, Irradiated (09/19/2024 10:02 AM EDT) Lexi Ferraro APRN BLOOD TRANSFUSION ORDERABL ES Final Result * Prepare Leukocyte Reduced Platelets (09/19/2024 9:08 AM EDT) Product Code W3441I15 CH BLOO D BANK Dispense Status Transfused BLOOD BANK Blood Expiration Date [id number] BLOOD BANK Unit Number [id number] B LOOD BANK Product Blood Type 6200 BLOOD BANK Blood Type A+ BLOOD BANK us Provider Not In System BLOOD BANK PRODUCT ORD ERABLES Final Result BLOOD BANK [address] [place] [address], * Myeloid Focused Panel, 50 gene (09/19/2024 7:29 AM EDT) Interpretation The following two (2) genes, TP53 and DNMT3A, with persistent variants have been detected in this bone marrow specimen. The variant, p.[id number], in TP53 gene and the variant, p.Fcq697pug, in the RUNX 1 gene are not detectable at current cutoff and coverage established in this lab. Gene: TP53 Mutation: c.814G>A; p.Qlg014Dxq Allele Frequency (%): 37% (45% Dec 2023) ID: [id number] Gene: DNMT3A Mutation: c.1522delC; p.[id number] 3 Allele Frequency (%): 36% (48% Dec 2023) Additional Details on Mutation Identified: Gene Transcript Genome Chrom Coordinate RefVar DNMT3A [id number] Hg19 2 [id number] delC TP53 NM_000546.5 Hg19 17 [id number] G>A 09/29/2024 4:05 PM EDT [facility] [...] then sequenced on the Illumina NextSeq 2000 ([employer] [place]). A custom bioinformatics pipeline aligns [...] of hematologic malignancies. 09/29/2024 4:05 PM EDT [facility] Disclaimer This test was developed and its performance characteristics determined by the Clinical Molecular and Genomic Pathology Laboratory at the [facility]. [...] clinical laboratory testing. 09/29/2024 4:05 PM EDT [facility] Pathologist Signature Reviewed by: Corey Tejada 09/29/2024 4:05 PM EDT [facility] Bone Marrow Specimen from bone marrow obtained by aspiration / Unknown Non-blood Collection / Unknown 09/19/2024 7:29 AM EDT 09/19/2024 12:03 PM EDT us New Mckinney MD LAB MOLECULAR DIAGNOSTICS ORD ERABLES Final Result [facility] [address] [place] [address], * Chromosome Karyotype, Oncology (09/19/2024 7:29 AM [...] Result [facility] [address] [place] [address] * Leukemia/Lymphoma - Immunophenotyping by Flow Cytometry (09/19/2024 7:29 AM EDT) Clinical Indication AML 09/22/2024 10:29 AM EDT [facility] Flow Cytometry Interpretation A. BONE MARROW [...] 09/22/2024 10:29 AM EDT [facility] Disclaimer This test was developed and [...] 09/22/2024 10:29 AM EDT [facility] Pathologist Signature Reviewed by: Lisandra Epstein [...] Result [facility] [address] [place] [address] * Bone marrow exam (09/19/2024 7:29 AM EDT) Case Report Bone Marrow Case: [id number] Authorizing Provider: New Mckinney MD Collected: 09/19/2024 0729 Ordering Location: [facility] Hematology/BMT and Received: 09/19/2024 1216 Cellular Therapy Program Pathologist: Lisandra Epstein MD Specimens: A) - Bone Marrow Aspirate, right B) - Bone Marrow Biopsy, right C) - Peripheral Blood for Bone Marrow 3:15 PM EDT [facility] Cytogenetics Report, Addendum Chromosome Analysis Result Giemsa-banded metaphase cells from unstimulated bone marrow cultures showed a 46,XX[20] chromosome pattern. Interpretation Normal female chromosome analysis. No clonal abnormalities were detected at current resolution. Clinical correlation is recommended. 3:15 PM EDT [facility] Addendum electronically signed by Lisandra Epstein MD on 09/24/2024 at 1630 EDT Addendum Interpretation The following two (2) genes, TP53 and DNMT3A, with persistent variants have been detected in this bone marrow specimen. The variant, p.Gns303Gkh, in TP53 gene and the variant, p.Xyx535lpe, in the RUNX 1 gene are not detectable at current cutoff and coverage established in this lab. Gene: TP53 Mutation: c.814G>A; p.Ywi296Uyi Allele Frequency (%): 37% (45% Dec 2023) ID: [id number] Gene: DNMT3A Mutation: c.1522delC; p.[id number] 43 Allele Frequency (%): 36% (48% Dec [...] cells 0-4 4 Other 3:15 PM EDT [facility] Bone Marrow Aspirate [...] unremarkable. 3:15 PM EDT [facility] Special and Immunohistochemical Stains Special Stain: A1-1 Vazquez-Giemsa A1-2 Vazquez-Giemsa A1-3 Vazquez-Giemsa C1-1 Vazquez-Giemsa IHC: B1-2 CD34 All controls show appropriate reactivity. All immunohistochemis try, in situ hybridization, and histochemical tests were developed by and are performed at the [facility], [address] [place] [address]. All tests reported here, except those addressing [...] negativity on decalcified specimens. 3:15 PM EDT [facility] Flow Cytometry Interpretation MIXED MARROW ELEMENTS WITH NO EVIDENCE OF INCREASED BLASTS OR ABNORMAL LYMPHOID POPULATIONS ([id number]). 3:15 PM EDT [facility] [...] PATHOLOGY ORDERABLES Edit ed Result - Final [facility] [address] [place] [address] * Hepatitis C Antibody w/Reflex to HCV Quant PCR (01/07/2024 8:42 AM EDT) Hepatitis C Antibody Negative Negative 01/07/2024 10:13 AM EDT [facility] Blood Venous blood specimen / Unknown Venipuncture / Unknown 01/07/2024 8:42 AM EDT 01/07/2024 9:25 AM EDT eNw Mckinney MD LAB BLOOD ORDERABLES Final Re sult [facility] [address] [place] [address] from Last 3 Months or Most Recently Relevant to Health Maintenance Insurance MEDICARE [facility] Care Teams Brazing Furnace Operator Relationship Specialty Start Date End Date Jevon Vazquez MD [address] [place] [address] #1 #1 [place] JOSEP [id number] PCP - General 03/23/22
--- OUTSIDE RECORDS SUMMARY | 2024-11-24 09:02 | XMS_ITS | Encounter Summary ---
Author Organization Healthcare Address [address] [place] [address] Care Team Providers Care Electronics System Mechanic Name Role Phone Jevon Vazquez MD Primary Care Provider [phone] Encounter Details Date Type Department Care Team [...] Hematology/BMT and Cellular Therapy Program [address] [address] 11/28/2024 2:30 PM EDT Office Visit [facility] Hematology/BMT and Cellular Therapy Program [address] [phone] Zonia Hoffman, HORTICULTURAL NURSERY ASSISTANT 800 [facility] [address] [place] [phone] 11/28/2024 4:00 PM EDT Appointment [facility] 1 [address] [place] [address] 11/29/2024 1:00 PM EDT Appointment [facility] 1 [address] [place] [address] 11/30/2024 1:00 PM EDT Appointment [facility] 1 [address] [place] [address] 12/01/2024 1:00 PM EDT Appointment [facility] 2 [address] [place] [address] 12/02/2024 2:30 PM EDT Appointment [facility] 2 [address] [place] [address] 12/03/2024 2:00 PM EDT Appointment [facility] 1 [address] [place] [address] 12/04/2024 1:00 PM EDT Appointment [facility] Infusion [address] [place] [address] documented as of this encounter Visit Diagnoses Not on filedocumented in this encounter Additional Health Concerns Assessment Noted Time A fall risk assessment has been complete d for the patient 09/30/2024 9:33 AM EDT A Body Mass Index follow-up plan has been documented for the patient 05/28/2024 1:52 PM EST documented as of this encounter Care Teams Electronics System Mechanic Relationship Specialty Start Date End Date Jevon Vazquez MD [address] [place] [address] #1 #1 [place] [address] PCP - General 03/23/22 documented as of this encounter
--- OUTSIDE RECORDS SUMMARY | 2024-11-24 09:02 | XMS_ITS | Encounter Summary ---
Author Organization [facility] Address [address] [place] [address] Care Team Providers Care Department Store Door Greeter Name Role Phone Jevon Vazquez MD Primary Care Provider [phone] Reason for Visit * Reason Comments Med Refill Encounter Details Date Type Department Care Team ([facility] Contact Info) Description 01/30/2024 Refill [facility] Hematology/BMT and Cellular Therapy Program [address] [phone] New Mckinney MD 800 [facility] [address] [place] [phone] Social History Tobacco Use Types Packs/Day Years [...] [facility] Contact Info) Description 11/28/2024 2:00 PM EDT Clinical Support [facility] Hematology/BMT and Cellular Therapy Program [address] [place] [address] 11/28/2024 2:30 PM EDT Office Visit [facility] Hematology/BMT and Cellular Therapy Program [address] [phone] Zonia Hoffman, POWER HOUSE ENGINEER [address] [facility] [address] [place] [address] 11/28/2024 4:00 PM EDT Appointment [facility] 1 [address] [place] [address] 11/29/2024 1:00 PM EDT Appointment [facility] 1 [address] [place] [address] 11/30/2024 1:00 PM EDT Appointment [facility] 1 [address] [place] [address] 12/01/2024 1:00 PM EDT Appointment [facility] 2 [address] [place] [address] 12/02/2024 2:30 PM EDT Appointment [facility] 2 [address] [place] [address] 12/03/2024 2:00 PM EDT Appointment [facility] 1 [address] [place] [address] 12/04/2024 1:00 PM EDT Appointment [facility] Infusion [address] [place] [address] documented as of this encounter Visit Diagnoses Not on filedocumented in this encounter Additional Health Concerns Assessment Noted Time A fall risk assessment has been complete d for the patient 01/11/2024 9:16 AM EDT A Body Mass Index follow-up plan has been documented for the patient 01/21/2024 6:16 AM EDT documented as of this encounter Care Teams Department Store Door Greeter Relationship Specialty Start Date End Date Jevon Vazquez MD [address] [place] [address] #1 #1 JulienJOSEP [address] PCP - General 03/23/22 documented as of this encounter
--- OUTSIDE RECORDS SUMMARY | 2024-11-24 09:02 | XMS_ITS | Encounter Summary ---
Author Organization Healthcare Address [address] [place] [address] Care Team Providers Care Senior Physician Name Role Phone Jevon Vazquez MD Primary Care Provider [phone] Encounter Details Date Type Department Care Team [...] Hematology/BMT and Cellular Therapy Program [address] [address] 11/28/2024 2:30 PM EDT Office Visit [facility] Hematology/BMT and Cellular Therapy Program [address] [phone] Zonia Hoffman, DUKEY RIDER 800 [facility] [address] [place] [address] 11/28/2024 4:00 PM EDT Appointment [facility] 1 [address] [place] [address] 11/29/2024 1:00 PM EDT Appointment [facility] 1 [address] [place] [address] 11/30/2024 1:00 PM EDT Appointment [facility] 1 [address] [place] [address] 12/01/2024 1:00 PM EDT Appointment [facility] 2 [address] [place] [address] 12/02/2024 2:30 PM EDT Appointment [facility] 2 [address] [place] [address] 12/03/2024 2:00 PM EDT Appointment [facility] 1 [address] [place] [address] 12/04/2024 1:00 PM EDT Appointment [facility] Infusion [address] [place] [address] documented as of this encounter Visit Diagnoses Not on filedocumented in this encounter Additional Health Concerns Assessment Noted Time A fall risk assessment has been complete d for the patient 09/30/2024 9:33 AM EDT A Body Mass Index follow-up plan has been documented for the patient 05/28/2024 1:52 PM EST documented as of this encounter Care Teams Senior Physician Relationship Specialty Start Date End Date Jevon Vazquez MD [address] [place] [address] #1 #1 [place] [address] PCP - General 03/23/22 documented as of this encounter
--- OUTSIDE RECORDS SUMMARY | 2024-11-24 09:02 | XMS_ITS | Encounter Summary ---
Author Organization Healthcare Address [address] [place] [address] Care Team Providers Care Thermal Technician Name Role Phone Jevon Vazquez MD Primary Care Provider [phone] Encounter Details Date Type Department Care Team [...] Hematology/BMT and Cellular Therapy Program [address] [address] 11/28/2024 2:30 PM EDT Office Visit [facility] Hematology/BMT and Cellular Therapy Program [address] [address] Zonia Hoffman, DEAN [employer] 800 [facility] [address] [place] [address] 11/28/2024 4:00 PM EDT Appointment [facility] 1 [address] [place] [address] 11/29/2024 1:00 PM EDT Appointment [facility] 1 [address] [place] [address] 11/30/2024 1:00 PM EDT Appointment [facility] 1 [address] [place] [address] 12/01/2024 1:00 PM EDT Appointment [facility] 2 [address] [place] [address] 12/02/2024 2:30 PM EDT Appointment [facility] 2 [address] [place] [address] 12/03/2024 2:00 PM EDT Appointment [facility] 1 [address] [place] [address] 12/04/2024 1:00 PM EDT Appointment [facility] Infusion [address] [place] [address] documented as of this encounter Visit Diagnoses Not on filedocumented in this encounter Additional Health Concerns Assessment Noted Time A fall risk assessment has been complete d for the patient 09/30/2024 9:33 AM EDT A Body Mass Index follow-up plan has been documented for the patient 05/28/2024 1:52 PM EST documented as of this encounter Care Teams Thermal Technician Relationship Specialty Start Date End Date Jevon Vazquez MD [address] [place] [address] #1 #[address] [place] [address] PCP - General 03/23/22 documented as of this encounter
--- OUTSIDE RECORDS SUMMARY | 2024-11-24 09:02 | XMS_ITS | Encounter Summary ---
Author Organization [facility] Address [address] [place] [address] Care Team Providers Care Case Folder Name Role Phone Jevon Vazquez MD Primary Care Provider [phone] Reason for Visit * Reason Comments Med Refill Encounter Details Date Type Department Care Team ([facility] Contact Info) Description 11/08/2024 Refill [facility] Hematology/BMT and Cellular Therapy Program [address] [phone] New Mckinney MD 800 [facility] [address] [place] [phone] Social History Tobacco Use Types Packs/Day Years [...] Team ([facility] Contact Info) Description 11/28/2024 2:00 PM EDT Clinical Support [facility] Hematology/BMT and Cellular Therapy Program [address] [phone] 11/28/2024 2:30 PM EDT Office Visit [facility] Hematology/BMT and Cellular Therapy Program [address] [phone] Zonia Hoffman, TANDEM MILL OPERATOR [address] [facility] [address] [place] [address] 11/28/2024 4:00 PM EDT Appointment [facility] 1 [address] [place] [address] 11/29/2024 1:00 PM EDT Appointment [facility] 1 [address] [place] [address] 11/30/2024 1:00 PM EDT Appointment [facility] 1 [address] [place] [address] 12/01/2024 1:00 PM EDT Appointment [facility] 2 [address] [place] [address] 12/02/2024 2:30 PM EDT Appointment [facility] 2 [address] [place] [address] 12/03/2024 2:00 PM EDT Appointment [facility] 1 [address] [place] [address] 12/04/2024 1:00 PM EDT Appointment [facility] Infusion [address] [place] [address] documented as of this encounter Visit Diagnoses Not on filedocumented in this encounter Additional Health Concerns Assessment Noted Time A fall risk assessment has been complete d for the patient 09/30/2024 9:33 AM EDT A Body Mass Index follow-up plan has been documented for the patient 05/28/2024 1:52 PM EST documented as of this encounter Care Teams Case Folder Relationship Specialty Start Date End Date Jevon Vazquez MD [address] [place] [address] #1 #1 [place] [address] PCP - General 03/23/22 documented as of this encounter
--- OUTSIDE RECORDS SUMMARY | 2024-11-24 09:02 | XMS_ITS | Encounter Summary ---
Author Organization Healthcare Address [address] [place] [address] Care Team Providers Care Emergency Communications Operator Name Role Phone Jevon Vazquez MD Primary Care Provider [phone] Encounter Details Date Type Department Care Team [...] Hematology/BMT and Cellular Therapy Program [address] [address] 11/28/2024 2:30 PM EDT Office Visit [facility] Hematology/BMT and Cellular Therapy Program [address] [address] Zonia Hoffman, CONTENT DEVELOPER 800 [facility] [address] [place] [address] 11/28/2024 4:00 PM EDT Appointment [facility] 1 [address] [place] [address] 11/29/2024 1:00 PM EDT Appointment [facility] 1 [address] [place] [address] 11/30/2024 1:00 PM EDT Appointment [facility] 1 [address] [place] [address] 12/01/2024 1:00 PM EDT Appointment [facility] 2 [address] [place] [address] 12/02/2024 2:30 PM EDT Appointment [facility] 2 [address] [place] [address] 12/03/2024 2:00 PM EDT Appointment [facility] 1 [address] [place] [address] 12/04/2024 1:00 PM EDT Appointment [facility] 800 [place] [address] documented as of this encounter Visit Diagnoses Not on filedocumented in this encounter Additional Health Concerns Assessment Noted Time A fall risk assessment has been complete d for the patient 09/30/2024 9:33 AM EDT A Body Mass Index follow-up plan has been documented for the patient 05/28/2024 1:52 PM EST documented as of this encounter Care Teams Emergency Communications Operator Relationship Specialty Start Date End Date Jevon Vazquez MD [address] [place] [address] #1 [address]1 [place] [address] PCP - General 03/23/22 documented as of this encounter
--- OUTSIDE RECORDS SUMMARY | 2024-11-24 09:02 | XMS_ITS | Encounter Summary ---
Author Organization Healthcare Address [address] [place] [address] Care Team Providers Care Gastroenterologist Name Role Phone Jevon Vazquez MD Primary Care Provider [phone] Encounter Details Date Type Department Care Team [...] Hematology/BMT and Cellular Therapy Program [address] [address] 11/28/2024 2:30 PM EDT Office Visit [facility] Hematology/BMT and Cellular Therapy Program [address] [address] Zonia Hoffman, WHEEL SETTER 800 [facility] [address] [place] [address] 11/28/2024 4:00 PM EDT Appointment [facility] 1 [address] [place] [address] 11/29/2024 1:00 PM EDT Appointment [facility] 1 [address] [place] [address] 11/30/2024 1:00 PM EDT Appointment [facility] 1 [address] [place] [address] 12/01/2024 1:00 PM EDT Appointment [facility] 2 [address] [place] [address] 12/02/2024 2:30 PM EDT Appointment [facility] 2 [address] [place] [address] 12/03/2024 2:00 PM EDT Appointment [facility] 1 [address] [place] [address] 12/04/2024 1:00 PM EDT Appointment [facility] 800 [place] [address] documented as of this encounter Visit Diagnoses Not on filedocumented in this encounter Additional Health Concerns Assessment Noted Time A fall risk assessment has been complete d for the patient 09/30/2024 9:33 AM EDT A Body Mass Index follow-up plan has been documented for the patient 05/28/2024 1:52 PM EST documented as of this encounter Care Teams Gastroenterologist Relationship Specialty Start Date End Date Jevon Vazquez MD [address] [place] [address] #1 #1 [place] [address] PCP - General 03/23/22 documented as of this encounter
--- OUTSIDE RECORDS SUMMARY | 2024-11-24 09:02 | XMS_ITS | Encounter Summary ---
Author Organization Healthcare Address [address] [place] [address] Care Team Providers Care Millstone Cleaner Name Role Phone Jevon Vazquez MD Primary Care Provider [phone] Encounter Details Date Type Department Care Team [...] Hematology/BMT and Cellular Therapy Program [address] [address] 11/28/2024 2:30 PM EDT Office Visit [facility] Hematology/BMT and Cellular Therapy Program [address] [address] Zonia Hoffman, TOOL OR DIE DRAWING CHECKER 800 [facility] [address] [place] [address] 11/28/2024 4:00 PM EDT Appointment [facility] 1 [address] [place] [address] 11/29/2024 1:00 PM EDT Appointment [facility] 1 [address] [place] [address] 11/30/2024 1:00 PM EDT Appointment [facility] 1 [address] [place] [address] 12/01/2024 1:00 PM EDT Appointment [facility] 2 [address] [place] [address] 12/02/2024 2:30 PM EDT Appointment [facility] 2 [address] [place] [address] 12/03/2024 2:00 PM EDT Appointment [facility] 1 [address] [place] [address] 12/04/2024 1:00 PM EDT Appointment [facility] [address] [place] [address] documented as of this encounter Visit Diagnoses Not on filedocumented in this encounter Additional Health Concerns Assessment Noted Time A fall risk assessment has been complete d for the patient 09/30/2024 9:33 AM EDT A Body Mass Index follow-up plan has been documented for the patient 05/28/2024 1:52 PM EST documented as of this encounter Care Teams Millstone Cleaner Relationship Specialty Start Date End Date Jevon Vazquez MD [address] [place] [address] #1 [address]1 [place] [address] PCP - General 03/23/22 documented as of this encounter
--- OUTSIDE RECORDS SUMMARY | 2024-11-24 09:02 | XMS_ITS ---
Author Organization [facility] Address [address] [place] [address] Care Team Providers Care Global Safety Officer Name Role Phone Jevon Vazquez MD Primary Care Provider [phone] Active Problems Problem Noted Date Diagnosed Date [...]
--- OUTSIDE RECORDS SUMMARY | 2024-11-24 09:02 | XMS_ITS | Encounter Summary ---
Author Organization Healthcare Address [address] [place] [address] Care Team Providers Care Field Service Engineer Name Role Phone Jevon Vazquez MD Primary Care Provider [phone] Encounter Details Date Type Department Care Team [...] Hematology/BMT and Cellular Therapy Program [address] [address] 11/28/2024 2:30 PM EDT Office Visit [facility] Hematology/BMT and Cellular Therapy Program [address] [address] Zonia Hoffman, EGG PACKER 800 [facility] [address] [place] [address] 11/28/2024 4:00 PM EDT Appointment [facility] 1 [address] [place] [address] 11/29/2024 1:00 PM EDT Appointment [facility] 1 [address] [place] [address] 11/30/2024 1:00 PM EDT Appointment [facility] 1 [address] [place] [address] 12/01/2024 1:00 PM EDT Appointment [facility] 2 [address] [place] [address] 12/02/2024 2:30 PM EDT Appointment [facility] 2 [address] [place] [address] 12/03/2024 2:00 PM EDT Appointment [facility] 1 [address] [place] [address] 12/04/2024 1:00 PM EDT Appointment [facility] 800 [place] [address] documented as of this encounter Visit Diagnoses Not on filedocumented in this encounter Additional Health Concerns Assessment Noted Time A fall risk assessment has been complete d for the patient 09/19/2024 8:38 AM EDT A Body Mass Index follow-up plan has been documented for the patient 05/28/2024 1:52 PM EST documented as of this encounter Care Teams Field Service Engineer Relationship Specialty Start Date End Date Jevon Vazquez MD [address] [place] [address] #1 #1 [place] [address] PCP - General 03/23/22 documented as of this encounter
--- OUTSIDE RECORDS SUMMARY | 2024-11-24 09:02 | XMS_ITS | Encounter Summary ---
Author Organization Healthcare Address [address] [place] [address] Care Team Providers Care Internal Medicine Specialist Name Role Phone Jevon Vazquez MD Primary Care Provider [phone] Encounter Details Date Type Department Care Team [...] Hematology/BMT and Cellular Therapy Program [address] [address] 11/28/2024 2:30 PM EDT Office Visit [facility] Hematology/BMT and Cellular Therapy Program [address] [address] Zonia Hoffman, DOCUMENT PHOTOGRAPHER 800 [facility] [address] [place] [address] 11/28/2024 4:00 PM EDT Appointment [facility] 1 [address] [place] [address] 11/29/2024 1:00 PM EDT Appointment [facility] 1 [address] [place] [address] 11/30/2024 1:00 PM EDT Appointment [facility] 1 [address] [place] [address] 12/01/2024 1:00 PM EDT Appointment [facility] 2 [address] [place] [address] 12/02/2024 2:30 PM EDT Appointment [facility] 2 [address] [place] [address] 12/03/2024 2:00 PM EDT Appointment [facility] 1 [address] [place] [address] 12/04/2024 1:00 PM EDT Appointment [facility] 800 [place] [address] documented as of this encounter Visit Diagnoses Not on filedocumented in this encounter Additional Health Concerns Assessment Noted Time A fall risk assessment has been complete d for the patient 09/30/2024 9:33 AM EDT A Body Mass Index follow-up plan has been documented for the patient 05/28/2024 1:52 PM EST documented as of this encounter Care Teams Internal Medicine Specialist Relationship Specialty Start Date End Date Jevon Vazquez MD [address] [place] [address] #1 #1 [place] [address] PCP - General 03/23/22 documented as of this encounter
--- OUTSIDE RECORDS SUMMARY | 2024-11-24 09:02 | XMS_ITS | Encounter Summary ---
Author Organization Healthcare Address [address] [place] [address] Care Team Providers Care Senior Back End Java Developer Name Role Phone Jevon Vazquez MD Primary Care Provider [phone] Encounter Details Date Type Department Care Team [...] Hematology/BMT and Cellular Therapy Program [address] [address] 11/28/2024 2:30 PM EDT Office Visit [facility] Hematology/BMT and Cellular Therapy Program [address] [address] Zonia Hoffman, ACCOUNT COORDINATOR 800 [facility] [address] [place] [address] 11/28/2024 4:00 PM EDT Appointment [facility] 1 [address] [place] [address] 11/29/2024 1:00 PM EDT Appointment [facility] 1 [address] [place] [address] 11/30/2024 1:00 PM EDT Appointment [facility] 1 [address] [place] [address] 12/01/2024 1:00 PM EDT Appointment [facility] 2 [address] [place] [address] 12/02/2024 2:30 PM EDT Appointment [facility] 2 [address] [place] [address] 12/03/2024 2:00 PM EDT Appointment [facility] 1 [address] [place] [address] 12/04/2024 1:00 PM EDT Appointment [facility] 800 [place] [address] documented as of this encounter Visit Diagnoses Not on filedocumented in this encounter Additional Health Concerns Assessment Noted Time A fall risk assessment has been complete d for the patient 09/19/2024 8:38 AM EDT A Body Mass Index follow-up plan has been documented for the patient 05/28/2024 1:52 PM EST documented as of this encounter Care Teams Senior Back End Java Developer Relationship Specialty Start Date End Date Jevon Vazquez MD [address] [place] [address] #1 #1 [place] [address] PCP - General 03/23/22 documented as of this encounter
--- OUTSIDE RECORDS SUMMARY | 2024-11-24 09:02 | XMS_ITS | Encounter Summary ---
Author Organization Healthcare Address [address] [place] [address] Care Team Providers Care Agricultural Research Engineer Name Role Phone Jevon Vazquez MD Primary Care Provider Encounter Details Date Type Department Care Team (Latest Contact Info) Description 11/23/2024 Travel Social History Tobacco Use Types Packs/Day [...] Hematology/BMT and Cellular Therapy Program [address] [address] 11/28/2024 2:30 PM EDT Office Visit [facility] Hematology/BMT and Cellular Therapy Program [address] [address] Zonia Hoffman, FOLLOW UP SPECIALIST 800 [facility] [address] [place] [address] 11/28/2024 4:00 PM EDT Appointment [facility] 1 [address] [place] [address] 11/29/2024 1:00 PM EDT Appointment [facility] 1 [address] [place] [address] 11/30/2024 1:00 PM EDT Appointment [facility] 1 [address] [place] [address] 12/01/2024 1:00 PM EDT Appointment [facility] 2 [address] [place] [address] 12/02/2024 2:30 PM EDT Appointment [facility] 2 [address] [place] [address] 12/03/2024 2:00 PM EDT Appointment [facility] 1 [address] [place] [address] 12/04/2024 1:00 PM EDT Appointment [facility] 800 [place] [address] documented as of this encounter Visit Diagnoses Not on filedocumented in this encounter Additional Health Concerns Assessment Noted Time A fall risk assessment has been complete d for the patient 09/30/2024 9:33 AM EDT A Body Mass Index follow-up plan has been documented for the patient 05/28/2024 1:52 PM EST documented as of this encounter Care Teams Agricultural Research Engineer Relationship Specialty Start Date End Date Jevon Vazquez MD [address] [place] [address] #1 #1 [place] [address] PCP - General 03/23/22 documented as of this encounter
--- OUTSIDE RECORDS SUMMARY | 2024-11-24 09:02 | XMS_ITS | Encounter Summary ---
Author Organization Healthcare Address [address] [place] [address] Care Team Providers Care Physician Office Nurse Name Role Phone Jevon Vazquez MD Primary Care Provider [phone] Encounter Details Date Type Department Care Team [...] Hematology/BMT and Cellular Therapy Program [address] [address] 11/28/2024 2:30 PM EDT Office Visit [facility] Hematology/BMT and Cellular Therapy Program [address] [address] Zonia Hoffman, MARINE ENGINEER 800 [facility] [address] [place] [address] 11/28/2024 4:00 PM EDT Appointment [facility] 1 [address] [place] [address] 11/29/2024 1:00 PM EDT Appointment [facility] 1 [address] [place] [address] 11/30/2024 1:00 PM EDT Appointment [facility] 1 [address] [place] [address] 12/01/2024 1:00 PM EDT Appointment [facility] 2 [address] [place] [address] 12/02/2024 2:30 PM EDT Appointment [facility] 2 [address] [place] [address] 12/03/2024 2:00 PM EDT Appointment [facility] 1 [address] [place] [address] 12/04/2024 1:00 PM EDT Appointment [facility] 800 [place] [address] documented as of this encounter Visit Diagnoses Not on filedocumented in this encounter Additional Health Concerns Assessment Noted Time A fall risk assessment has been complete d for the patient 09/30/2024 9:33 AM EDT A Body Mass Index follow-up plan has been documented for the patient 05/28/2024 1:52 PM EST documented as of this encounter Care Teams Physician Office Nurse Relationship Specialty Start Date End Date Jevon Vazquez MD [address] [place] [address] #1 [address]1 [place] [address] PCP - General 03/23/22 documented as of this encounter
--- OUTSIDE RECORDS SUMMARY | 2024-11-24 09:02 | XMS_ITS | Encounter Summary ---
Author Organization [facility] Address [address] [place] [address] Care Team Providers Care Airport Duty Manager Name Role Phone Jevon Vazquez MD Primary Care Provider [phone] Reason for Visit * Reason Comments Med Refill Encounter Details Date Type Department Care Team ([facility] Contact Info) Description 10/14/2024 Refill [facility] Hematology/BMT and Cellular Therapy Program [address] [phone] New Mckinney MD 800 [facility] [address] [place] [address] Social History Tobacco Use Types Packs/Day Years [...] Hematology/BMT and Cellular Therapy Program [address] [address] 11/28/2024 2:30 PM EDT Office Visit [facility] Hematology/BMT and Cellular Therapy Program [address] [address] Zonia Hoffman, DIAMOND SANDER [address] [facility] [address] [place] [address] 11/28/2024 4:00 PM EDT Appointment [facility] 1 [address] [place] [address] 11/29/2024 1:00 PM EDT Appointment [facility] 1 [address] [place] [address] 11/30/2024 1:00 PM EDT Appointment [facility] 1 [address] [place] [address] 12/01/2024 1:00 PM EDT Appointment [facility] 2 [address] [place] [address] 12/02/2024 2:30 PM EDT Appointment [facility] 2 [address] [place] [address] 12/03/2024 2:00 PM EDT Appointment [facility] 1 [address] [place] [address] 12/04/2024 1:00 PM EDT Appointment [facility] 800 [place] [address] documented as of this encounter Visit Diagnoses Not on filedocumented in this encounter Additional Health Concerns Assessment Noted Time A fall risk assessment has been complete d for the patient 09/30/2024 9:33 AM EDT A Body Mass Index follow-up plan has been documented for the patient 05/28/2024 1:52 PM EST documented as of this encounter Care Teams Airport Duty Manager Relationship Specialty Start Date End Date Jevon Vazquez MD [address] [place] [address] #1 #1 [place] [address] PCP - General 03/23/22 documented as of this encounter
--- OUTSIDE RECORDS SUMMARY | 2024-11-24 09:02 | XMS_ITS | Encounter Summary ---
Author Organization [facility] Address [address] [place] [address] Care Team Providers Care Ladies' Hat Trimmer Name Role Phone Jevon Vazquez MD Primary Care Provider [phone] Reason for Visit * Reason Comments Med Refill Encounter Details Date Type Department Care Team ([facility] Contact Info) Description 10/15/2024 Refill [facility] Hematology/BMT and Cellular Therapy Program [address] [phone] New Mckinney MD 800 [facility] [address] [place] [address] Social History Tobacco Use Types Packs/Day Years [...] Hematology/BMT and Cellular Therapy Program [address] [address] 11/28/2024 2:30 PM EDT Office Visit [facility] Hematology/BMT and Cellular Therapy Program [address] [address] Zonia Hoffman, ASSISTANT TO THE DIRECTOR [address] [facility] [address] [place] [address] 11/28/2024 4:00 PM EDT Appointment [facility] 1 [address] [place] [address] 11/29/2024 1:00 PM EDT Appointment [facility] 1 [address] [place] [address] 11/30/2024 1:00 PM EDT Appointment [facility] 1 [address] [place] [address] 12/01/2024 1:00 PM EDT Appointment [facility] 2 [address] [place] [address] 12/02/2024 2:30 PM EDT Appointment [facility] 2 [address] [place] [address] 12/03/2024 2:00 PM EDT Appointment [facility] 1 [address] [place] [address] 12/04/2024 1:00 PM EDT Appointment [facility] 800 [place] [address] documented as of this encounter Visit Diagnoses Not on filedocumented in this encounter Additional Health Concerns Assessment Noted Time A fall risk assessment has been complete d for the patient 09/30/2024 9:33 AM EDT A Body Mass Index follow-up plan has been documented for the patient 05/28/2024 1:52 PM EST documented as of this encounter Care Teams Ladies' Hat Trimmer Relationship Specialty Start Date End Date Jevon Vazquez MD [address] [place] [address] #1 #1 [place] [address] PCP - General 03/23/22 documented as of this encounter
--- OUTSIDE RECORDS SUMMARY | 2024-11-24 09:02 | XMS_ITS | Encounter Summary ---
Author Organization Healthcare Address [address] [place] [address] Care Team Providers Care Caregiver Services Home Name Role Phone Jevon Vazquez MD Primary Care Provider [phone] Encounter Details Date Type Department Care Team ([facility] st Contact Info) Description 10/27/2024 Telephone [facility] Hematology/BMT and Cellular Therapy Program [address] [address] Zonia Hoffman, SOFTWARE LEAD 800 [facility] [address] [place] [address] Social History Tobacco Use Types Packs/Day Years [...] and her new appts will be on [employer]. She verbalizes understanding. * Telephone Encounter - [...] Hematology/BMT and Cellular Therapy Program [address] [address] 11/28/2024 2:30 PM EDT Office Visit [facility]AV Hematology/BMT and Cellular Therapy Program [address] [address] Zonia Hoffman, SOFTWARE LEAD 800 [facility] [address] [place] [address] 11/28/2024 4:00 PM EDT Appointment [facility] 1 [address] [place] [address] 11/29/2024 1:00 PM EDT Appointment [facility] 1 [address] [place] [address] 11/30/2024 1:00 PM EDT Appointment [facility] 1 [address] [place] [address] 12/01/2024 1:00 PM EDT Appointment [facility] 2 [address] [place] [address] 12/02/2024 2:30 PM EDT Appointment [facility] 2 [address] [place] [address] 12/03/2024 2:00 PM EDT Appointment [facility] 1 [address] [place] [address] 12/04/2024 1:00 PM EDT Appointment [facility] Infusion 800 [place] [address] documented as of this encounter Visit Diagnoses Not on filedocumented in this encounter Additional Health Concerns Assessment Noted Time A fall risk assessment has been complete d for the patient 09/30/2024 9:33 AM EDT A Body Mass Index follow-up plan has been documented for the patient 05/28/2024 1:52 PM EST documented as of this encounter Care Teams Caregiver Services Home Relationship Specialty Start Date End Date Jevon Vazquez MD [address] [place] [address] #1 #1 [place] [address] PCP - General 03/23/22 documented as of this encounter
--- OUTSIDE RECORDS SUMMARY | 2024-11-24 09:02 | XMS_ITS | Encounter Summary ---
Author Organization Healthcare Address [address] [place] [address] Care Team Providers Care Motor Setter Name Role Phone Jevon Vazquez MD Primary Care Provider [phone] Encounter Details Date Type Department Care Team [...] Hematology/BMT and Cellular Therapy Program [address] [address] 11/28/2024 2:30 PM EDT Office Visit [facility] Hematology/BMT and Cellular Therapy Program [address] [address] Zonia Hoffman, BEHAVIORAL CONSULTANT 800 [facility] [address] [place] [address] 11/28/2024 4:00 PM EDT Appointment [facility] 1 [address] [place] [address] 11/29/2024 1:00 PM EDT Appointment [facility] 1 [address] [place] [address] 11/30/2024 1:00 PM EDT Appointment [facility] 1 [address] [place] [address] 12/01/2024 1:00 PM EDT Appointment [facility] 2 [address] [place] [address] 12/02/2024 2:30 PM EDT Appointment [facility] 2 [address] [place] [address] 12/03/2024 2:00 PM EDT Appointment [facility] 1 [address] [place] [address] 12/04/2024 1:00 PM EDT Appointment [facility] 800 [place] [address] documented as of this encounter Visit Diagnoses Not on filedocumented in this encounter Additional Health Concerns Assessment Noted Time A fall risk assessment has been complete d for the patient 09/30/2024 9:33 AM EDT A Body Mass Index follow-up plan has been documented for the patient 05/28/2024 1:52 PM EST documented as of this encounter Care Teams Motor Setter Relationship Specialty Start Date End Date Jevon Vazquez MD [address] [place] [address] #1 #1 [place] [address] PCP - General 03/23/22 documented as of this encounter
--- OUTSIDE RECORDS SUMMARY | 2024-11-24 09:02 | XMS_ITS | Encounter Summary ---
Author Organization Healthcare Address [address] [place] [address] Care Team Providers Care Hot Air Furnace Installer And Repairer Name Role Phone Jevon Vazquez MD Primary Care Provider [phone] Encounter Details Date Type Department Care Team [...] Hematology/BMT and Cellular Therapy Program [address] [address] 11/28/2024 2:30 PM EDT Office Visit [facility] Hematology/BMT and Cellular Therapy Program [address] [address] Zonia Hoffman, ROVING FRAME TENDER 800 [facility] [address] [place] [address] 11/28/2024 4:00 PM EDT Appointment [facility] 1 [address] [place] [address] 11/29/2024 1:00 PM EDT Appointment [facility] 1 [address] [place] [address] 11/30/2024 1:00 PM EDT Appointment [facility] 1 [address] [place] [address] 12/01/2024 1:00 PM EDT Appointment [facility] 2 [address] [place] [address] 12/02/2024 2:30 PM EDT Appointment [facility] 2 [address] [place] [address] 12/03/2024 2:00 PM EDT Appointment [facility] 1 [address] [place] [address] 12/04/2024 1:00 PM EDT Appointment [facility] In[facility] [address] [place] [address] documented as of this encounter Visit Diagnoses Not on filedocumented in this encounter Additional Health Concerns Assessment Noted Time A fall risk assessment has been complete d for the patient 09/30/2024 9:33 AM EDT A Body Mass Index follow-up plan has been documented for the patient 05/28/2024 1:52 PM EST documented as of this encounter Care Teams Hot Air Furnace Installer And Repairer Relationship Specialty Start Date End Date Jevon Vazquez MD [address] [place] [address] [address]1 [address]1 [place] [address] PCP - General 03/23/22 documented as of this encounter
--- OUTSIDE RECORDS SUMMARY | 2024-11-24 09:02 | XMS_ITS | Encounter Summary ---
Author Organization Healthcare Address [address] [place] [address] Care Team Providers Care Product Development Worker Name Role Phone Jevon Vazquez MD Primary Care Provider [phone] Encounter Details Date Type Department Care Team ([facility] st Contact Info) Description 10/28/2024 Telephone [facility] Hematology/BMT and Cellular Therapy Program [address] [address] Zonia Hoffman, BASE FILLER OPERATOR 800 [facility] [address] [place] [address] Social History Tobacco Use Types Packs/Day Years [...] go over her labs results Callback number: [phone] documented in this encounter Plan of Treatment Upcoming Encounters Date Type Department Care Team (Late st Contact Info) Description 11/28/2024 2:00 PM EDT Clinical Support [facility] Hematology/BMT and Cellular Therapy Program 750 [facility], [address] [place] [address] 11/28/2024 2:30 PM EDT Office Visit [facility] Hematology/BMT and Cellular Therapy Program 750 [facility], [address] [place] [address] Zonia Hoffman, BASE FILLER OPERATOR 800 [facility] [address] [place] [address] 11/28/2024 4:00 PM EDT Appointment [facility] 1 [address] [place] [address] 11/29/2024 1:00 PM EDT Appointment [facility] 1 [address] [place] [address] 11/30/2024 1:00 PM EDT Appointment [facility] 1 [address] [place] [address] 12/01/2024 1:00 PM EDT Appointment [facility] 2 [address] [place] [address] 12/02/2024 2:30 PM EDT Appointment [facility] 2 [address] [place] [address] 12/03/2024 2:00 PM EDT Appointment [facility] 1 [address] [place] [address] 12/04/2024 1:00 PM EDT Appointment [facility] In[facility] [address] [place] [address] documented as of this encounter Visit Diagnoses Not on filedocumented in this encounter Additional Health Concerns Assessment Noted Time A fall risk assessment has been complete d for the patient 09/30/2024 9:33 AM EDT A Body Mass Index follow-up plan has been documented for the patient 05/28/2024 1:52 PM EST documented as of this encounter Care Teams Product Development Worker Relationship Specialty Start Date End Date Jevon Vazquez MD [address] [place] [address] #1 [address]1 [place] [address] PCP - General 03/23/22 documented as of this encounter
--- OUTSIDE RECORDS SUMMARY | 2024-11-24 09:02 | XMS_ITS | Encounter Summary ---
Author Organization Healthcare Address [address] [place] [address] Care Team Providers Care Casualty Claims Supervisor Name Role Phone Jevon Vazquez MD [...] Hematology/BMT and Cellular Therapy Program [address] [address] 11/28/2024 2:30 PM EDT Office Visit [facility] Hematology/BMT and Cellular Therapy Program [address] [address] Zonia Hoffman, STATE SUPERINTENDENT [employer] SCHOOLS 800 [facility] [address] [place] [address] 11/28/2024 4:00 PM EDT Appointment [facility] 1 [address] [place] [address] 11/29/2024 1:00 PM EDT Appointment [facility] 1 [address] [place] [address] 11/30/2024 1:00 PM EDT Appointment [facility] 1 [address] [place] [address] 12/01/2024 1:00 PM EDT Appointment [facility] 2 [address] [place] [address] 12/02/2024 2:30 PM EDT Appointment [facility] 2 [address] [place] [address] 12/03/2024 2:00 PM EDT Appointment [facility] 1 [address] [place] [address] 12/04/2024 1:00 PM EDT Appointment [facility] [address] [place] [address] documented as of this encounter Visit Diagnoses Not on filedocumented in this encounter Additional Health Concerns Assessment Noted Time A fall risk assessment has been complete d for the patient 09/30/2024 9:33 AM EDT A Body Mass Index follow-up plan has been documented for the patient 05/28/2024 1:52 PM EST documented as of this encounter Care Teams Casualty Claims Supervisor Relationship Specialty Start Date End Date Jevon Vazquez MD [address] [place] [address] #1 [address]1 [place] [address] PCP - General 03/23/22 documented as of this encounter
--- OUTSIDE RECORDS SUMMARY | 2024-11-24 09:02 | XMS_ITS | Clinical Summary ---
Author Organization [facility] Address [address] [place] [address] Care Team Providers Care Fur Blower Name Role Phone David Vazquez Primary Care Provider [phone] Allergies No known active allergies Medications atorvastatin [...] series) 2025 Medical Devices Implanted Type Area Stock Analyst Device Identifier Shelf Expiration Date Model / Serial / Lot Mis Ply Scr 6.5x50mm - [id number] Implanted:Qty : 1 on 01/30/2023 by Ivan Bartholomew MD at [facility] Screw N/A: Spine Lumbar [employer] [id number] / / Mis Ply Scr 6.5x45mm - [id number] Implanted:Qty : 3 on 01/30/2023 by Ivan Bartholomew MD at [facility] Screw N/A: Spine Lumbar [employer] [id number] / / Reline Mas Reduction Screw 7.5x45 - [id number] Implanted:Qty : 2 on 01/30/2023 by Ivan Bartholomew MD at [facility] Screw N/A: Spine Lumbar [employer] [id number] / / Grft Dbm Vesuvius Putty 5cc - [id number] Implanted:Qty : 1 on 01/30/2023 by Ivan Bartholomew MD at [facility] [employer] [id number] 04/20/2025 [id number] P / [id number] / Putty I-Factor 5.0cc - [id number] Implanted:Qty : 1 on 01/30/2023 by Ivan Bartholomew MD at [facility] N/A: Spine Lumbar [employer] 03/15/2025 [id number] / / [id number] Modulus Xlw [id number] 10 Degree - [id number] Implanted:Qty : 1 on 01/30/2023 by Ivan Bartholomew MD at [facility] N/A: Spine Lumbar [employer] [id number] / / [id number] Modulus Xlw [id number] - [id number] Implanted:Qty : 1 on 01/30/2023 by Ivan Bartholomew MD at [facility] N/A: Spine Lumbar [employer] 09/28/2027 [id number] / / [id number] Reln Lock Scr 5.5mm Opn Tulip - [id number] Implanted:Qty : 6 on 01/30/2023 by Ivan Bartholomew MD at [facility] N/A: Spine Lumbar [employer] [id number] / / Reln Mas Ti Petar 5.5x70mm - [id number] Implanted:Qty : 2 on 01/30/2023 by Ivan Bartholomew MD at [facility] N/A: Spine Lumbar [employer] [id number] / / Procedures Procedure Name Priority Date/Time [...] Hgb A1C 6.0(H) 4.0 - 5.6 % [facility] Comment: Reference Ranges [...] Glycohemoglobin Standardization program (NGSP) and [facility]able [facility] Estimated Average Glucose 126(H) 68 - 114 mg/dL [facility] Whole Blood (Blood) 01/24/2023 2:32 PM EDT 01/24/2023 6:00 PM EDT us Ivan Bartholomew MD CHEMISTRY ORDERABLES Fin al Result [facility] [address] * (ABNORMAL) BASIC METABOLIC PANEL (BMP=EP1) (01/24/2023 2:32 PM EDT) Sodium 141 135 - 146 mmol/L [facility] Potassium 4.8 3.5 - 5.1 mmol/L [facility] Chloride 107 98 - 110 mmol/L [facility] CO2 24 22 - 29 mmol/L [facility] Anion Gap 10 5 - 13 mmol/L [facility] Comment:Anion gap calculatio n does not include potassium (K+) value. BUN 17 7 - 25 mg/dL [facility] Creatinine 1.20 0.50 - 1.20 mg/dL [facility] Glucose 125(H) 71 - 99 mg/dL [facility] Comment:Reference range (71- 99 mg/dL) refers only to fasting samples, and does not apply to non-fasting samples. eGFR CKD-EPI 2020 48 See Note [facility] Comment: eGFR calculated with 2020 CKD-EPI equation using creatinine, patient's age and gender. Other factors, especially muscle mass, may affect accuracy and need to be considered. Patient values should be interpreted as a trend. The reference interval is >60 mL/min/1.73m2. Calcium 10.3 8.5 - 10.5 mg/dL [facility] BUN/Creatinine Ratio 14 [facility] Serum 01/24/2023 2:32 PM EDT 01/24/2023 5:54 PM EDT us Lexi SUAREZ CHEMISTRY ORDERABLES Final Resu lt [facility] [address] from Last 3 Months or Most Recently Relevant to Health Maintenance Insurance MEDICARE PART A [facility] [address] [address] [place] [address] ANTH Advance Directives For more information, please contact: [phone] * Full Code (Latest Code Status on File) Date Activated Date Inactivated Comments 01/30/2023 9:13 AM No automated chest compression devices for [facility] Patients Care Teams Fur Blower Relationship Specialty Start Date End Date David Vazquez [address] [place] [id number] PCP - General 01/24/23
--- OUTSIDE RECORDS SUMMARY | 2024-11-24 09:02 | XMS_ITS | Encounter Summary ---
Author Organization Healthcare Address [address] [place] [address] Care Team Providers Care Aquatics Lifeguard Name Role Phone Jevon Vazquez MD Primary Care Provider [phone] Encounter Details Date Type Department Care Team [...] Hematology/BMT and Cellular Therapy Program [address] [address] 11/28/2024 2:30 PM EDT Office Visit [facility] Hematology/BMT and Cellular Therapy Program [address] [address] Zonia Hoffman, WASH PLANT OPERATOR 800 [facility] [address] [place] [address] 11/28/2024 4:00 PM EDT Appointment [facility] 1 744 [place] [address] 11/29/2024 1:00 PM EDT Appointment [facility] 1 [address] [place] [address] 11/30/2024 1:00 PM EDT Appointment [facility] 1 [address] [place] [address] 12/01/2024 1:00 PM EDT Appointment [facility] 2 [address] [place] [address] 12/02/2024 2:30 PM EDT Appointment [facility] 2 [address] [place] [address] 12/03/2024 2:00 PM EDT Appointment [facility] 1 [address] [place] [address] 12/04/2024 1:00 PM EDT Appointment [facility] Infusion 800 [place] [address] documented as of this encounter Visit Diagnoses Not on filedocumented in this encounter Additional Health Concerns Assessment Noted Time A fall risk assessment has been complete d for the patient 09/30/2024 9:33 AM EDT A Body Mass Index follow-up plan has been documented for the patient 05/28/2024 1:52 PM EST documented as of this encounter Care Teams Aquatics Lifeguard Relationship Specialty Start Date End Date Jevon Vazquez MD [address] [place] [address] #1 [address]1 [place] [address] PCP - General 03/23/22 documented as of this encounter
--- OUTSIDE RECORDS SUMMARY | 2024-11-24 09:03 | XMS_ITS | Encounter Summary ---
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 [...] Hematology/BMT and Cellular Therapy Program [address] [address] 11/28/2024 2:30 PM EDT Office Visit [facility] Hematology/BMT and Cellular Therapy Program [address] [address] Zonia Hoffman, MEDICAL CARE EVALUATION SPECIALIST 800 [facility] [address] [place] [address] 11/28/2024 4:00 PM EDT Appointment [facility] 1 [address] [place] [address] 11/29/2024 1:00 PM EDT Appointment [facility] 1 [address] [place] [address] 11/30/2024 1:00 PM EDT Appointment [facility] 1 [address] [place] [address] 12/01/2024 1:00 PM EDT Appointment [facility] 2 [address] [place] [address] 12/02/2024 2:30 PM EDT Appointment [facility] 2 [address]44 [place] [address] 12/03/2024 2:00 PM EDT Appointment [facility] 1 [address] [place] [address] 12/04/2024 1:00 PM EDT Appointment [facility] Infusion [address] [place] [address] Scheduled Orders Name Type Priority Associated Diagnoses [...] documented as of this encounter Care Teams Casino Cage Cashier Relationship Specialty Start Date End Date Jevon Vazquez MD [address] [place] [address] #1 #1 [place] [address] PCP - General 03/23/22 documented as of this encounter
--- OUTSIDE RECORDS SUMMARY | 2024-11-24 09:03 | XMS_ITS | Encounter Summary ---
Author Organization Healthcare Address [address] [place] [address] Care Team Providers Care Senior Relationship Manager Name Role Phone Jevon Vazquez MD Primary Care Provider [phone] Encounter Details Date Type Department Care Team [...] Hematology/BMT and Cellular Therapy Program [address] [address] 11/28/2024 2:30 PM EDT Office Visit [facility] Hematology/BMT and Cellular Therapy Program [address] [address] Zonia Hoffman, DISTRIBUTION ANALYST 800 [facility] [address] [place] [address] 11/28/2024 4:00 PM EDT Appointment [facility] 1 [address] [place] [address] 11/29/2024 1:00 PM EDT Appointment [facility] 1 [address] [place] [address] 11/30/2024 1:00 PM EDT Appointment [facility] 1 [address] [place] [address] 12/01/2024 1:00 PM EDT Appointment [facility] 2 [address] [place] [address] 12/02/2024 2:30 PM EDT Appointment [facility] 2 [address] [place] [address] 12/03/2024 2:00 PM EDT Appointment [facility] 1 [address] [place] [address] 12/04/2024 1:00 PM EDT Appointment [facility] Infusion 800 [place] [address] documented as of this encounter Visit Diagnoses Not on filedocumented in this encounter Additional Health Concerns Assessment Noted Time A fall risk assessment has been complete d for the patient 09/30/2024 9:33 AM EDT A Body Mass Index follow-up plan has been documented for the patient 05/28/2024 1:52 PM EST documented as of this encounter Care Teams Senior Relationship Manager Relationship Specialty Start Date End Date Jevon Vazquez MD [address] [place] [address] #1 [address]1 [place] [address] PCP - General 03/23/22 documented as of this encounter
--- OUTSIDE RECORDS SUMMARY | 2024-11-24 09:03 | XMS_ITS | Encounter Summary ---
Author Organization Healthcare Address [address] [place] [address] Care Team Providers Care Remote Sensing Technician Name Role Phone Jevon Vazquez MD Primary Care Provider [phone] Encounter Details Date Type Department Care Team [...] Hematology/BMT and Cellular Therapy Program [address] [address] 11/28/2024 2:30 PM EDT Office Visit [facility] Hematology/BMT and Cellular Therapy Program [address] [address] Zonia Hoffman, DELIVERY DRIVER ASSISTANT 800 [facility] [address] [place] [address] 11/28/2024 4:00 PM EDT Appointment [facility] 1 [address] [place] [address] 11/29/2024 1:00 PM EDT Appointment [facility] 1 [address] [place] [address] 11/30/2024 1:00 PM EDT Appointment [facility] 1 [address] [place] [address] 12/01/2024 1:00 PM EDT Appointment [facility] 2 [address] [place] [address] 12/02/2024 2:30 PM EDT Appointment [facility] 2 [address] [place] [address] 12/03/2024 2:00 PM EDT Appointment [facility] 1 [address] [place] [address] 12/04/2024 1:00 PM EDT Appointment [facility] Infusion 800 [place] [address] documented as of this encounter Visit Diagnoses Not on filedocumented in this encounter Additional Health Concerns Assessment Noted Time A fall risk assessment has been complete d for the patient 09/30/2024 9:33 AM EDT A Body Mass Index follow-up plan has been documented for the patient 05/28/2024 1:52 PM EST documented as of this encounter Care Teams Remote Sensing Technician Relationship Specialty Start Date End Date Jevon Vazquez MD [address] [place] [address] #1 [address] [place] [address] PCP - General 03/23/22 documented as of this encounter
--- OUTSIDE RECORDS SUMMARY | 2024-11-24 09:03 | XMS_ITS | Encounter Summary ---
Author Organization Healthcare Address [address] [place] [address] Care Team Providers Care Category Development Manager Name Role Phone Jevon Vazquez MD Primary Care Provider [phone] Encounter Details Date Type Department Care Team [...] Hematology/BMT and Cellular Therapy Program [address] [address] 11/28/2024 2:30 PM EDT Office Visit [facility] Hematology/BMT and Cellular Therapy Program [address] [address] Zonia Hoffman, SCRAP MATERIALS BUYER 800 [facility] [address] [place] [address] 11/28/2024 4:00 PM EDT Appointment [facility] 1 [address] [place] [address] 11/29/2024 1:00 PM EDT Appointment [facility] 1 [address] [place] [address] 11/30/2024 1:00 PM EDT Appointment [facility] 1 [address] [place] [address] 12/01/2024 1:00 PM EDT Appointment [facility] 2 [address] [place] [address] 12/02/2024 2:30 PM EDT Appointment [facility] 2 [address] [place] [address] 12/03/2024 2:00 PM EDT Appointment [facility] 1 [address] [place] [address] 12/04/2024 1:00 PM EDT Appointment [facility] In[facility] [address] [place] [address] documented as of this encounter Visit Diagnoses Not on filedocumented in this encounter Additional Health Concerns Assessment Noted Time A fall risk assessment has been complete d for the patient 09/19/2024 8:38 AM EDT A Body Mass Index follow-up plan has been documented for the patient 05/28/2024 1:52 PM EST documented as of this encounter Care Teams Category Development Manager Relationship Specialty Start Date End Date Jevon Vazquez MD [address] [place] [address] #1 [address]1 [place] [address] PCP - General 03/23/22 documented as of this encounter
--- OUTSIDE RECORDS SUMMARY | 2024-11-24 09:03 | XMS_ITS | Encounter Summary ---
Author Organization Healthcare Address [address] [place] [address] Care Team Providers Care Staff Psychiatrist Name Role Phone Jevon Vazquez MD Primary Care Provider [phone] Encounter Details Date Type Department Care Team [...] Hematology/BMT and Cellular Therapy Program [address] [address] 11/28/2024 2:30 PM EDT Office Visit [facility] Hematology/BMT and Cellular Therapy Program [address] [address] Zonia Hoffman, PACKER SAUSAGE AND WIENER 800 [facility] [address] [place] [address] 11/28/2024 4:00 PM EDT Appointment [facility] 1 744 [place] [address] 11/29/2024 1:00 PM EDT Appointment [facility] 1 [address] [place] [address] 11/30/2024 1:00 PM EDT Appointment [facility] 1 [address] [place] [address] 12/01/2024 1:00 PM EDT Appointment [facility] 2 [address] [place] [address] 12/02/2024 2:30 PM EDT Appointment [facility] 2 [address] [place] [address] 12/03/2024 2:00 PM EDT Appointment [facility] 1 [address] [place] [address] 12/04/2024 1:00 PM EDT Appointment [facility] 800 [place] [address] documented as of this encounter Visit Diagnoses Not on filedocumented in this encounter Additional Health Concerns Assessment Noted Time A fall risk assessment has been complete d for the patient 09/30/2024 9:33 AM EDT A Body Mass Index follow-up plan has been documented for the patient 05/28/2024 1:52 PM EST documented as of this encounter Care Teams Staff Psychiatrist Relationship Specialty Start Date End Date Jevon Vazquez MD [address] [place] [address] #1 [address]1 [place] [address] PCP - General 03/23/22 documented as of this encounter
--- OUTSIDE RECORDS SUMMARY | 2024-11-24 09:03 | XMS_ITS | Clinical Summary ---
Author Organization [facility] Address [address] [place] [address] Phone Care Team Providers Care Directory Compiler Name Role Phone Jevon Vazquez MD Primary Care Provider [phone] Allergies Active Allergy Reactions Criticality Noted Date [...] L4-5 LAMINECTOMY; Surgeon: Ivan Bartholomew MD; Location: [facility] MAIN OR; Service: Spine Medical History [...] 5.6 % 11/14/2022 2:57 PM EDT PREFERRED [employer], [employer] Est. Avg Glucose 148 mg/dL 11/14/2022 2:57 PM EDT [employer], [facility] Blood VENOUS BLOOD / Unknown Venipuncture / Unknown 11/11/2022 3:46 PM EDT 11/11/2022 3:55 PM EDT Narrative [facility] - 11/14/2022 2:57 PM EDT [...] CHEMISTRY ORDERABLES Final R esult [facility] [place] [facility] [address] [facility] , [address] [place] [id number] * (ABNORMAL) BASIC METABOLIC PANEL (11/11/2022 3:46 PM EDT) Sodium 136 136 - 145 mmol/L 11/11/2022 4:11 PM EDT [facility] Potassium 3.8 3.5 - 5.0 mmol/L 11/11/2022 4:11 PM EDT [facility] Chloride 102 98 - 107 mmol/L 11/11/2022 4:11 PM EDT [facility] Total CO2 24 22 - 29 mmol/L 11/11/2022 4:11 PM EDT [facility] Anion Gap 10 7 - 16 mmol/L 11/11/2022 4:11 PM EDT [facility] Calcium 10.1 8.8 - 10.4 mg/dL 11/11/2022 4:11 PM EDT [facility] Glucose Lvl 147(H) 82 - 100 mg/dL 11/11/2022 4:11 PM EDT [facility] BUN 15 8 - 23 mg/dL 11/11/2022 4:11 PM EDT [facility] Creatinine 0.82 0.51 - 1.30 mg/dL 11/11/2022 4:11 PM EDT [facility] eGFR (CKD-EPIcr 2020) 76 >=60 mL/min/1.7 3 m2 11/11/2022 4:11 PM EDT [facility] Comment:Estimated GFR was ca lculated using the CKD-EPIcr (2020) equation refit without race. The equation is recommended by the National Kidney Foundation - [place] [employer] of Nephrology Task Force. Blood VENOUS BLOOD / Unknown Venipuncture / Unknown 11/11/2022 3:46 PM EDT 11/11/2022 3:54 PM EDT us Leona Hanna DO CHEMISTRY ORDERABLES Final Res ult [facility] [address] [place] [address] * DX BONE DENSITY AXIAL SKELETON (07/25/2022 9:14 AM EDT) Anatomical Region Laterality Modality Dexa Scan 07/25/2022 Narrative 07/25/2022 3:45 PM EDT Indication: The patient is a female age 65 or older who requires a bone density assessment. Study was performed on Spotsetter 5. Bone Density: Region BMD T-score Z-score [...] Insurance [place]ICARE [place] [address] MEDICARE SUPPLEMENT MEDICARE [place] PART A AND B Member Subscriber Plan / Payer (Ef fective 2016-Present) Name:Ashly Hernández Member ID:[id number] Relation to Subscriber:Self Name:Ashly Hernández Subscriber ID:[id number] Payer ID:Not on file Group ID:Not on file Type:Not on file Address: [address] MEDICARE SUPPLEMENT MEDICARE [place] PART A & B MEDICARE [place] PART A AND B Member Subscriber Plan / Payer (Ef fective 2016-Present) Name:Ashly Hernández Member ID:[id number] Relation to Subscriber:Self Name:Ashly Hernández Subscriber ID:[id number] Payer ID:Not on file Group ID:Not on file Type:Not on file Address: [address] MEDICARE SUPPLEMENT [employer] MEDICARE [place] PART A AND B [address] MEDICARE SUPPLEMENT Advance Directives For more information, please contact: [phone] * Full Code (Latest Code Status on File) Date Activated Date Inactivated Comments 11/14/2022 6:53 PM 11/16/2022 7:37 PM * Full Code Date Activated Date Inactivated Comments 11/12/2022 5:17 AM 11/14/2022 6:47 PM Care Teams Directory Compiler Relationship Specialty Start Date End Date Jevon Vazquez MD [address] [place] [address] PCP - General Family Medicine 11/10/22
--- OUTSIDE RECORDS SUMMARY | 2024-11-24 09:03 | XMS_ITS | Encounter Summary ---
Author Organization [facility] Address [address] [place] [address] Care Team Providers Care Bicycle Designer Name Role Phone Jevon Vazquez MD Primary Care Provider [phone] Encounter Details Date Type Department Care Team ([facility] Contact Info) Description 11/12/2024 Telephone [facility] Hematology/BMT and Cellular Therapy Program [address] [address] Zonia Hoffman, CREDIT VERIFIER 800 [facility] [address] [place] [phone] Social History Tobacco Use Types Packs/Day Years [...] CC Hematology/BMT and Cellular Therapy Program 750 [facility] [place] [place] [address] 11/28/2024 2:30 PM EDT Office Visit [facility] Hematology/BMT and Cellular Therapy Program 750 [facility] [place] [address] Zonia Hoffman, CREDIT VERIFIER 800 [facility] [address] [place] [address] 11/28/2024 4:00 PM EDT Appointment [facility] 1 [address] [place] [address] 11/29/2024 1:00 PM EDT Appointment [facility] 1 [address] [place] [address] 11/30/2024 1:00 PM EDT Appointment [facility] 1 [address] [place] [address] 12/01/2024 1:00 PM EDT Appointment [facility] 2 [address] [place] [address] 12/02/2024 2:30 PM EDT Appointment [facility] 2 [address] [place] [address] 12/03/2024 2:00 PM EDT Appointment [facility] 1 [address] [place] [address] 12/04/2024 1:00 PM EDT Appointment [facility] [address] [place] [address] documented as of this encounter Visit Diagnoses Not on filedocumented in this encounter Additional Health Concerns Assessment Noted Time A fall risk assessment has been complete d for the patient 09/30/2024 9:33 AM EDT A Body Mass Index follow-up plan has been documented for the patient 05/28/2024 1:52 PM EST documented as of this encounter Care Teams Bicycle Designer Relationship Specialty Start Date End Date Jevon Vazquez MD [address] [place] [address] #1 #1 [place] [address] PCP - General 03/23/22 documented as of this encounter
--- OUTSIDE RECORDS SUMMARY | 2024-11-24 09:03 | XMS_ITS | Encounter Summary ---
Author Organization Healthcare Address [address] [place] [address] Care Team Providers Care Advertising Writer Name Role Phone Jevon Vazquez MD Primary Care Provider [phone] Encounter Details Date Type Department Care Team [...] Hematology/BMT and Cellular Therapy Program [address] [address] 11/28/2024 2:30 PM EDT Office Visit [facility] Hematology/BMT and Cellular Therapy Program [address] [address] Zonia Hoffman, CITY AUDITOR 800 [facility] [address] [place] [address] 11/28/2024 4:00 PM EDT Appointment [facility] 1 [address] [place] [address] 11/29/2024 1:00 PM EDT Appointment [facility] 1 [address] [place] [address] 11/30/2024 1:00 PM EDT Appointment [facility] 1 [address] [place] [address] 12/01/2024 1:00 PM EDT Appointment [facility] 2 [address] [place] [address] 12/02/2024 2:30 PM EDT Appointment [facility] 2 [address] [place] [address] 12/03/2024 2:00 PM EDT Appointment [facility] 1 [address] [place] [address] 12/04/2024 1:00 PM EDT Appointment [facility] [address] [place] [address] documented as of this encounter Visit Diagnoses Not on filedocumented in this encounter Additional Health Concerns Assessment Noted Time A fall risk assessment has been complete d for the patient 09/19/2024 8:38 AM EDT A Body Mass Index follow-up plan has been documented for the patient 05/28/2024 1:52 PM EST documented as of this encounter Care Teams Advertising Writer Relationship Specialty Start Date End Date Jevon Vazquez MD [address] [place] [address] #1 #1 [place] [address] PCP - General 03/23/22 documented as of this encounter
--- OUTSIDE RECORDS SUMMARY | 2024-11-24 09:03 | XMS_ITS | Encounter Summary ---
Author Organization Healthcare Address [address] [place] [address] Care Team Providers Care Room Service Food Service Attendant Name Role Phone Jevon Vazquez MD Primary Care Provider [phone] Encounter Details Date Type Department Care Team ([facility] Contact Info) Description 10/08/2024 Orders Only [facility] CC Hematology/BMT and Cellular Therapy Program [address] [address] 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, RN [facility] Acute myeloid leukemia not [...] Care Team ([facility] Contact Info) Description 11/28/2024 2:00 PM EDT Clinical Support [facility] Hematology/BMT and Cellular Therapy Program [address] [address] 11/28/2024 2:30 PM EDT Office Visit [facility] CC Hematology/BMT and Cellular Therapy Program [address] [address] Zonia Hoffman, AIRCRAFT MOTOR MECHANIC 800 [facility] [address] [place] [address] 11/28/2024 4:00 PM EDT Appointment [facility] 1 [address] [place] [address] 11/29/2024 1:00 PM EDT Appointment [facility] 1 [address] [place] [address] 11/30/2024 1:00 PM EDT Appointment [facility] 1 [address] [place] [address] 12/01/2024 1:00 PM EDT Appointment [facility] 2 [address] [place] [address] 12/02/2024 2:30 PM EDT Appointment [facility] 2 [address] [place] [address] 12/03/2024 2:00 PM EDT Appointment [facility] 1 [address] [place] [address] 12/04/2024 1:00 PM EDT Appointment [facility] Infusion 800 [place] [address] Scheduled Orders Name Type Priority Associated Diagnoses [...] as of this encounter Care Teams Room Service Food Service Attendant Relationship Specialty Start Date End Date Jevon Vazquez MD [address] [place] [address] #1 #1 [place] [address] PCP - General 03/23/22 documented as of this encounter
--- OUTSIDE RECORDS SUMMARY | 2024-11-24 09:03 | XMS_ITS | Encounter Summary ---
Author Organization Healthcare Address [address] [place] [address] Care Team Providers Care Dock Builder Name Role Phone Jevon Vazquez MD Primary Care Provider [phone] Encounter Details Date Type Department Care Team [...] Hematology/BMT and Cellular Therapy Program [address] [address] 11/28/2024 2:30 PM EDT Office Visit [facility] CC Hematology/BMT and Cellular Therapy Program [address] [address] Zonia Hoffman, ENGINEERING TEST MECHANIC 800 [facility] [address] [place] [address] 11/28/2024 4:00 PM EDT Appointment [facility] 1 [address] [place] [address] 11/29/2024 1:00 PM EDT Appointment [facility] 1 [address] [place] [address] 11/30/2024 1:00 PM EDT Appointment [facility] 1 [address] [place] [address] 12/01/2024 1:00 PM EDT Appointment [facility] 2 [address] [place] [address] 12/02/2024 2:30 PM EDT Appointment [facility] 2 [address] [place] [address] 12/03/2024 2:00 PM EDT Appointment [facility] 1 [address] [place] [address] 12/04/2024 1:00 PM EDT Appointment [facility] 800 [place] [address] documented as of this encounter Visit Diagnoses Not on filedocumented in this encounter Additional Health Concerns Assessment Noted Time A fall risk assessment has been complete d for the patient 09/30/2024 9:33 AM EDT A Body Mass Index follow-up plan has been documented for the patient 05/28/2024 1:52 PM EST documented as of this encounter Care Teams Dock Builder Relationship Specialty Start Date End Date Jevon Vazquez MD [address] [place] [address] #1 #1 [place] [address] PCP - General 03/23/22 documented as of this encounter
--- OUTSIDE RECORDS SUMMARY | 2024-11-24 09:03 | XMS_ITS | Encounter Summary ---
Author Organization Healthcare Address [address] [place] [address] Care Team Providers Care Casing Sewer Name Role Phone Jevon Vazquez MD Primary Care Provider [phone] Encounter Details Date Type Department Care Team [...] Hematology/BMT and Cellular Therapy Program [address] [address] 11/28/2024 2:30 PM EDT Office Visit [facility] CC Hematology/BMT and Cellular Therapy Program [address] [address] Zonia Hoffman, HORSEBACK EXCAVATOR 800 [facility] [address] [place] [address] 11/28/2024 4:00 PM EDT Appointment [facility] 1 [address] [place] [address] 11/29/2024 1:00 PM EDT Appointment [facility] 1 [address] [place] [address] 11/30/2024 1:00 PM EDT Appointment [facility] 1 [address] [place] [address] 12/01/2024 1:00 PM EDT Appointment [facility] 2 [address] [place] [address] 12/02/2024 2:30 PM EDT Appointment [facility] 2 [address] [place] [address] 12/03/2024 2:00 PM EDT Appointment [facility] 1 [address] [place] [address] 12/04/2024 1:00 PM EDT Appointment [facility] [address] [place] [address] documented as of this encounter Visit Diagnoses Not on filedocumented in this encounter Additional Health Concerns Assessment Noted Time A fall risk assessment has been complete d for the patient 09/19/2024 8:38 AM EDT A Body Mass Index follow-up plan has been documented for the patient 05/28/2024 1:52 PM EST documented as of this encounter Care Teams Casing Sewer Relationship Specialty Start Date End Date Jevon Vazquez MD [address] [place] [address] #1 [address]1 [place] [address] PCP - General 03/23/22 documented as of this encounter
[2024-11-24 09:19] LABS: Hematocrit 23.1 % (37.0-47.0); Hemoglobin 7.8 g/dL (12.2-16.2); Immature Granulocytes % 0.5 %; Mean Corpuscular HGB Conc 33.8 g/dL (31.8-35.4); Mean Corpuscular Hemoglobin 34.5 pg (27.0-31.2); Mean Corpuscular Volume 102.2 fl (81-99); Nucleated Red Blood Cells % 0.9 %; Red Blood Count 2.26 M/mm3 (4.20-5.40); White Blood Count 2.1 K/mm3 (4.8-10.8)
[2024-11-24 09:22] LABS: Platelet Count 13 K/mm3 (142-424)
[2024-11-24 09:26] LABS: Albumin Level 3.5 g/dl (3.5-5.0); Chloride 105 mmol/L (98-107); Sodium 137 mmol/L (136-145)
[2024-11-24 09:27] LABS: Potassium 3.7 mmoL/L (3.5-5.1)
[2024-11-24 09:29] LABS: Alanine Aminotransferase 12 U/L (12-78); Anion Gap 11.7 mEq/L (5-15); Aspartate Amino Transferase 35 U/L (14-36); Bilirubin,Total 0.3 mg/dl (0.2-1.3); Blood Urea Nitrogen 26 mg/dl (7-17); Carbon Dioxide 24 mmol/L (22.0-30.0); Creatinine Clearance Estimated 46 mL/min (50-200); Creatinine,Serum 1.00 mg/dl (0.52-1.04); Estimated Glomerular Filt Rate 54 ml/min (>60); GFR (African American) 66 ML/MIN (>60)
[2024-11-24 09:30] LABS: Albumin/Globulin Ratio 1.6 (1.1-1.8); Alkaline Phosphatase 43 U/L (38-126); Calcium 9.3 mg/dl (8.4-10.2); Globulin 2.2 g/dL (1.3-3.2); Glucose 134 mg/dl (74-100); Total Protein,Serum 5.7 g/dl (6.3-8.2)
[2024-11-24] MEDS: 0.9 % SODIUM CHLORIDE 250 ML 25 ML IV (13:41)
[2024-11-24] MEDS: ACETAMINOPHEN 325MG TAB 650 MG PO (13:42)
[2024-11-24] MEDS: SODIUM CHLORIDE 0.9% 10ML FLUSH SYRINGE 10 ML IV (16:52)
== END 2024-11-24 17:11 | disposition home or self-care (01) ==
LOC: INF 08:58
PROVIDERS: PCP Family Medicine; Visit Provider Internal Medicine Medical Oncology
DX: C92.00 Acute myeloblastic leukemia, not having achieved remission (principal)
CPT/HCPCS: 36430; 80053; 85025; 86850; J1642; J7050; P9016

== ENCOUNTER 2024-11-27 08:53 | Outpatient (CLI) | payer MEDICARE, BC, SELFPAY ==
--- OUTSIDE RECORDS SUMMARY | 2024-09-30 09:00 | XMS_ITS | Encounter Summary ---
Author Organization Healthcare Address [address] [place] [address] Care Team Providers Care Household Cook Name Role Phone Jevon Vazquez MD Primary Care Provider [phone] Reason for Visit * Reason Comments Labs Only Encounter Details Date Type Department Care Team ([facility] Contact Info) Description 09/30/2024 9:00 AM EDT Clinical Support [facility] Hematology/BMT and Cellular Therapy Program [address] [phone] Jyoti Kemp Acute myeloid leukemia not having [...] Upcoming Encounters Date Type Department Care Team ([facility] Contact Info) Description 11/28/2024 2:00 PM EDT Clinical Support [facility] Hematology/BMT and Cellular Therapy Program [address] [phone] 11/28/2024 2:30 PM EDT Office Visit [facility] Hematology/BMT and Cellular Therapy Program [address] [phone] Zonia Hoffman, ECHOMETER ENGINEER 800 [facility] [address] [place] [phone] 11/28/2024 4:00 PM EDT Appointment [facility] [address] [place] [address] 11/29/2024 1:00 PM EDT Appointment [facility] [address] [place] [address] 11/30/2024 1:00 PM EDT Appointment [facility] 2 [address] [place] [address] 12/01/2024 1:00 PM EDT Appointment [facility] [address] [place] [address] 12/02/2024 2:30 PM EDT Appointment [facility] 2 [address] [place] [address] 12/03/2024 2:00 PM EDT Appointment [facility] [address] [place] [address] 12/04/2024 1:00 PM EDT Appointment [facility] Infusion [address] [place] [address] documented as of this encounter Procedures Procedure [...] 09/30/2024 9:50 AM EDT us Zonia Hoffman ECHOMETER ENGINEER LAB BLOOD ORDERABLES Final Res ult [facility] [address] [place] [address] * (ABNORMAL) CBC and Differential (09/30/2024 9:11 [...] 9:11 AM EDT 09/30/2024 9:34 AM EDT [facility] - 09/30/2024 11:07 AM EDT Therapeutic decision making should be based on absolute values, rather than percentages. 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
--- OUTSIDE RECORDS SUMMARY | 2024-09-30 09:30 | XMS_ITS | Encounter Summary ---
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 female. Referring Physician: Zonia Hoffman, ASPARAGUS BUNCHER 800 [facility] [address] [address] Primary Care Provider: Jevon Vazquez MD Chief [...] k/??L. 12/2023- seen by Dr. Manzano in [facility] for evaluation of anemia and lymphocytosis. [...] interphase cells examined show a deletion of X2L425. Next generation sequencing: Abnormal: TP53 (c.814G>A; p.[id number]) frequency 45%, DMNT3A (c.1522delC; p.[id number]) frequency 48%, RUNX1 (c.336_338delGCC; p.Qap368abp) frequency 35% Azacitidine + Venetoclax Cycle 1: [...] - Continue local lab checks MWF at [facility] Allogenic transplant planning. 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 However, given her older age > 70, she would benefit from a geriatric BMT program and will make referrals should she be interested. Expected pancytopenia related to chemotherapy/AML. Check CBC x 3 times/week at [facility] Labs reviewed today, Hgb 7.7 , [...] charts, reviewing results, and documenting. RODDY Cristina [facility] HEMATOLOGY/BMT AND CELLULAR THERAPY PROGRAM 800 [facility] [address] 40 minutes was spent on this encounter; [...] ([facility] st Contact Info) Description 11/28/2024 2:00 PM EDT Clinical Support [facility] Hematology/BMT and Cellular Therapy Program 750 [facility], [address] [place] [address] [place] [address] 11/28/2024 2:30 PM EDT Office Visit [facility] Hematology/BMT and Cellular Therapy Program [address] [place] [address] Zonia Hoffman, ASPARAGUS BUNCHER [address] [facility] [address] [place] [address] 11/28/2024 4:00 PM EDT Appointment [facility] 1 [address] [place] [address] 11/29/2024 1:00 PM EDT Appointment [facility] 1 [address] [place] [address] 11/30/2024 1:00 PM EDT Appointment [facility] 2 [address] [place] [address] 12/01/2024 1:00 PM EDT Appointment [facility] 2 [address] [place] [address] 12/02/2024 2:30 PM EDT Appointment [facility] 2 [address] [place] [address] 12/03/2024 2:00 PM EDT Appointment [facility] 1 [address] [place] [address] 12/04/2024 1:00 PM EDT Appointment [facility] 800 [place] [address] documented as of this encounter Results * (ABNORMAL) Comprehensive Metabolic Panel, Plasma (09/30/2024 9:11 AM EDT) [facility] Glucose, Plasma 135(H) 74 - 99 mg/dL 09/30/2024 10:20 AM EDT [facility] BUN, Plasma 21 8 - 23 mg/dL 09/30/2024 10:20 AM EDT [facility] Creatinine, Plasma 1.00 0.60 - 1.10 mg/dL 09/30/2024 10:20 AM EDT [facility] BUN/Creatinine Ratio 21 09/30/2024 10:20 AM EDT [facility] Sodium, Plasma 137 136 - 145 mmol/L 09/30/2024 10:20 AM EDT [facility] Potassium, Plasma 3.8 3.6 - 4.9 mmol/L 09/30/2024 10:20 AM EDT [facility] Chloride, Plasma 107 97 - 107 mmol/L 09/30/2024 10:20 AM EDT [facility] CO2, Plasma 22 22 - 29 mmol/L 09/30/2024 10:20 AM EDT [facility] Anion Gap 8 6 - 16 mmol/L 09/30/2024 10:20 AM EDT [facility] Total Calcium, Plasma 9.8 8.9 - 10.2 mg/dL 09/30/2024 10:20 AM EDT [facility] Total Protein 5.9(L) 6.3 - 7.9 g/dL 09/30/2024 10:20 AM EDT [facility] Albumin, Plasma 3.8 3.5 - 5.2 g/dL 09/30/2024 10:20 AM EDT [facility] AST, Plasma 28 10 - 35 U/L 09/30/2024 10:20 AM EDT [facility] ALT, Plasma 14 10 - 35 U/L 09/30/2024 10:20 AM EDT [facility] Alkaline Phosphatase, Plasma 34(L) 46 - 142 U/L 09/30/2024 10:20 AM EDT [facility] Total Bilirubin, Plasma 0.3 0.2 - 1.1 mg/dL 09/30/2024 10:20 AM EDT [facility] eGFRcr 59.6 mL/min/1.7 3m*2 09/30/2024 10:20 AM EDT [facility] Comment:Reported eGFRcr in m L/min/1.73m2 is based the CKD-EPI 2020 equation that does not use a race coefficient. Blood Venous blood specimen / Unknown (Port) Long-term Catheter / Unknown 09/30/2024 9:11 AM EDT 09/30/2024 9:50 AM EDT us Zonia Hoffman APRN LAB BLOOD ORDERABLES Final Res ult [facility] 800 [place] [address] * (ABNORMAL) CBC and Differential (09/30/2024 9:11 AM EDT) WBC Count 3.34(L) 3.70 - 10.30 10*3/uL LAB HEMATOLOGY METHOD 09/30/2024 11:07 AM EDT [facility] RBC Count 1.91(L) 3.90 - 5.20 10*6/uL LAB HEMATOLOGY METHOD 09/30/2024 11:07 AM EDT [facility] HGB 7.7(L) 11.2 - 15.7 g/dL LAB HEMATOLOGY METHOD 09/30/2024 11:07 AM EDT [facility] HCT 22.8(L) 34.0 - 45.0 % LAB HEMATOLOGY METHOD 09/30/2024 11:07 AM EDT [facility] Platelet Count 17(LL) 155 - 369 10*3/uL LAB HEMATOLOGY METHOD 09/30/2024 11:07 AM EDT [facility] MCV 119(H) 79 - 98 fL LAB HEMATOLOGY METHOD 09/30/2024 11:07 AM EDT [facility] MCH 40.3(H) 26.0 - 32.0 pg LAB HEMATOLOGY METHOD 09/30/2024 11:07 AM EDT [facility] MCHC 33.8 30.7 - 35.5 g/dL LAB HEMATOLOGY METHOD 09/30/2024 11:07 AM EDT [facility] RDW 18.7(H) 11.5 - 14.5 % LAB HEMATOLOGY METHOD 09/30/2024 11:07 AM EDT [facility] MPV 11.1 8.8 - 12.5 fL LAB HEMATOLOGY METHOD 09/30/2024 11:07 AM EDT [facility] nRBC 0.0 <=0.0 per 100 WBCs LAB HEMATOLOGY METHOD 09/30/2024 11:07 AM EDT [facility] Differential Type Automated LAB HEMATOLOGY METHOD 09/30/2024 11:07 AM EDT [facility] Neutrophils % 65 % LAB HEMATOLOGY METHOD 09/30/2024 11:07 AM EDT [facility] Lymphocytes % 26 % LAB HEMATOLOGY METHOD 09/30/2024 11:07 AM EDT [facility] Monocytes % 7 % LAB HEMATOLOGY METHOD 09/30/2024 11:07 AM EDT [facility] Eosinophils % 1 % LAB HEMATOLOGY METHOD 09/30/2024 11:07 AM EDT [facility] Basophils % 1 % LAB HEMATOLOGY METHOD 09/30/2024 11:07 AM EDT [facility] Immature Granulocytes % 0 % LAB HEMATOLOGY METHOD 09/30/2024 11:07 AM EDT [facility] Neutrophils Absolute 2.17 1.60 - 6.10 10*3/uL LAB HEMATOLOGY METHOD 09/30/2024 11:07 AM EDT [facility] Lymphocytes Absolute 0.87(L) 1.20 - 3.90 10*3/uL LAB HEMATOLOGY METHOD 09/30/2024 11:07 AM EDT [facility] Monocytes Absolute 0.24(L) 0.30 - 0.90 10*3/uL LAB HEMATOLOGY METHOD 09/30/2024 11:07 AM EDT [facility] Eosinophils Absolute 0.03 0.00 - 0.50 10*3/uL LAB HEMATOLOGY METHOD 09/30/2024 11:07 AM EDT [facility] Basophils Absolute 0.02 0.00 - 0.10 10*3/uL LAB HEMATOLOGY METHOD 09/30/2024 11:07 AM EDT [facility] Immature Granulocytes Absolute 0.01 0.00 - 0.06 10*3/uL LAB HEMATOLOGY METHOD 09/30/2024 11:07 AM EDT [facility] Blood Venous blood specimen / Unknown (Port) Long-term Catheter / Unknown 09/30/2024 9:11 AM EDT 09/30/2024 9:34 AM EDT Narrative [facility] - 09/30/2024 11:07 AM EDT Therapeutic decision making should be based on absolute values, rather than percentages. us Zonia Hoffman APRN LAB BLOOD ORDERABLES Final Res ult [facility] [address] [place] [address] documented in this encounter Visit Diagnoses Diagnosis [...] documented as of this encounter Care Teams Intermediate Frame Tender Relationship Specialty Start Date End Date Jevon Vazquez MD [address] [place] [address] #1 #1 JOSEP [place] [id number] PCP - General 03/23/22 documented as of this encounter
[2024-11-27 08:55] VITALS: BMI 21.8
--- OUTSIDE RECORDS SUMMARY | 2024-11-27 09:00 | XMS_ITS | Encounter Summary ---
Author Organization [facility] Address [address] [place] [address] Care Team Providers Care Manager Of Project Management Name Role Phone Jevon Vazquez MD Primary Care Provider [phone] Reason for Visit * Reason Comments Med Refill Encounter Details Date Type Department Care Team ([facility] Contact Info) Description 01/30/2024 Refill [facility] CC Hematology/BMT and Cellular Therapy Program [address] [phone] [place] MD 800 [facility] [address] [place] [address] Social History Tobacco Use Types Packs/Day Years [...] Upcoming Encounters Date Type Department Care Team ([facility] Contact Info) Description 11/28/2024 2:00 PM EDT Clinical Support [facility] CC Hematology/BMT and Cellular Therapy Program [address] [place] [address] 11/28/2024 2:30 PM EDT Office Visit [facility] CC Hematology/BMT and Cellular Therapy Program [address] [phone] Zonia Hoffman, ACCOUNTS RECEIVABLE ADMINISTRATOR [address] [facility] [address] [place] [address] 11/28/2024 4:00 PM EDT Appointment [facility] 1 [address] [place] [address] 11/29/2024 1:00 PM EDT Appointment [facility] 1 [address] [place] [address] 11/30/2024 1:00 PM EDT Appointment [facility] 2 [address] [place] [address] 12/01/2024 1:00 PM EDT Appointment [facility] 2 [address] [place] [address] 12/02/2024 2:30 PM EDT Appointment [facility] 2 [address] [place] [address] 12/03/2024 2:00 PM EDT Appointment [facility] 1 [address] [place] [address] 12/04/2024 1:00 PM EDT Appointment [facility] In[facility] [address] [place] [address] documented as of this encounter Visit Diagnoses Not on filedocumented in this encounter Additional Health Concerns Assessment Noted Time A fall risk assessment has been complete d for the patient 01/11/2024 9:16 AM EDT A Body Mass Index follow-up plan has been documented for the patient 01/21/2024 6:16 AM EDT documented as of this encounter Care Teams Manager Of Project Management Relationship Specialty Start Date End Date Jevon Vazquez MD [address] [place] [address] #1 #1 [place] [address] PCP - General 03/23/22 documented as of this encounter
--- OUTSIDE RECORDS SUMMARY | 2024-11-27 09:00 | XMS_ITS | Encounter Summary ---
Author Organization Healthcare Address [address] [place] [address] Care Team Providers Care Saw Offbearer Name Role Phone Jevon Vazquez MD Primary Care Provider [phone] Encounter Details Date Type Department Care Team [...] Hematology/BMT and Cellular Therapy Program [address] [address] 11/28/2024 2:30 PM EDT Office Visit [facility] CC Hematology/BMT and Cellular Therapy Program [address] [address] Zonia Hoffman, MINCING MACHINE OPERATOR 800 [facility] [address] [place] [address] 11/28/2024 4:00 PM EDT Appointment [facility] 1 [address] [place] [address] 11/29/2024 1:00 PM EDT Appointment [facility] 1 [address] [place] [address] 11/30/2024 1:00 PM EDT Appointment [facility] 2 [address] [place] [address] 12/01/2024 1:00 PM EDT Appointment [facility] 2 [address] [place] [address] 12/02/2024 2:30 PM EDT Appointment [facility] 2 [address] [place] [address] 12/03/2024 2:00 PM EDT Appointment [facility] 1 [address] [place] [address] 12/04/2024 1:00 PM EDT Appointment [facility] Infusion 800 [place] [address] documented as of this encounter Visit Diagnoses Not on filedocumented in this encounter Additional Health Concerns Assessment Noted Time A fall risk assessment has been complete d for the patient 09/30/2024 9:33 AM EDT A Body Mass Index follow-up plan has been documented for the patient 05/28/2024 1:52 PM EST documented as of this encounter Care Teams Saw Offbearer Relationship Specialty Start Date End Date Jevon Vazquez MD [address] [place] [address] #1 [address]1 [place] [address] PCP - General 03/23/22 documented as of this encounter
--- OUTSIDE RECORDS SUMMARY | 2024-11-27 09:00 | XMS_ITS | Encounter Summary ---
Author Organization [facility] Address [address] [place] [address] Care Team Providers Care Chief Design Drafter Name Role Phone Jevon Vazquez MD Primary Care Provider [phone] Encounter Details Date Type Department Care Team ([facility] Contact Info) Description 10/29/2024 Refill [facility] CC Hematology/BMT and Cellular Therapy Program [address] [address] Zonia Hoffman, AMPOULE FILLER 800 [facility] [address] [place] [address] Acute myeloid leukemia not having achieved remission [...] Hematology/BMT and Cellular Therapy Program [address] [address] 11/28/2024 2:30 PM EDT Office Visit [facility] CC Hematology/BMT and Cellular Therapy Program [address] [place] [address] Zonia Hoffman, AMPOULE FILLER 800 [address] [facility] [address] [place] [address] 11/28/2024 4:00 PM EDT Appointment [facility] 1 [address] [place] [address] 11/29/2024 1:00 PM EDT Appointment [facility] 1 [address] [place] [address] 11/30/2024 1:00 PM EDT Appointment [facility] 2 [address] [place] [address] 12/01/2024 1:00 PM EDT Appointment [facility] 2 [address] [place] [address] 12/02/2024 2:30 PM EDT Appointment [facility] 2 [address] [place] [address] 12/03/2024 2:00 PM EDT Appointment [facility] 1 [address] [place] [address] 12/04/2024 1:00 PM EDT Appointment [facility] H Infusion [address] [place] [address] documented as of this encounter Visit Diagnoses [...] as of this encounter Care Teams Chief Design Drafter Relationship Specialty Start Date End Date Jevon Vazquez MD [address] [place] [address] #1 #1 [place] [address] PCP - General 03/23/22 documented as of this encounter
--- OUTSIDE RECORDS SUMMARY | 2024-11-27 09:00 | XMS_ITS | Encounter Summary ---
Author Organization Healthcare Address [address] [place] [address] Care Team Providers Care Certified Teacher Assistant Name Role Phone Jevon Vazquez MD Primary Care Provider [phone] Encounter Details Date Type Department Care Team [...] Hematology/BMT and Cellular Therapy Program [address] [address] 11/28/2024 2:30 PM EDT Office Visit [facility] CC Hematology/BMT and Cellular Therapy Program [address] [address] Zonia Hoffman, REGIONAL AGRONOMIST 800 [facility] [address] [place] [address] 11/28/2024 4:00 PM EDT Appointment [facility] 1 [address] [place] [address] 11/29/2024 1:00 PM EDT Appointment [facility] 1 [address] [place] [address] 11/30/2024 1:00 PM EDT Appointment [facility] 2 [address] [place] [address] 12/01/2024 1:00 PM EDT Appointment [facility] 2 [address] [place] [address] 12/02/2024 2:30 PM EDT Appointment [facility] 2 [address] [place] [address] 12/03/2024 2:00 PM EDT Appointment [facility] 1 [address] [place] [address] 12/04/2024 1:00 PM EDT Appointment [facility] In[facility] 800 [place] [address] documented as of this encounter Visit Diagnoses Not on filedocumented in this encounter Additional Health Concerns Assessment Noted Time A fall risk assessment has been complete d for the patient 09/30/2024 9:33 AM EDT A Body Mass Index follow-up plan has been documented for the patient 05/28/2024 1:52 PM EST documented as of this encounter Care Teams Certified Teacher Assistant Relationship Specialty Start Date End Date Jevon Vazquez MD [address] [place] [address] #1 #1 [place] [address] PCP - General 03/23/22 documented as of this encounter
--- OUTSIDE RECORDS SUMMARY | 2024-11-27 09:00 | XMS_ITS | Encounter Summary ---
Author Organization Healthcare Address [address] [place] [address] Care Team Providers Care Admitting Supervisor Name Role Phone Jevon Vazquez MD Primary Care Provider [phone] Encounter Details Date Type Department Care Team ([facility] st Contact Info) Description 10/28/2024 Telephone [facility] CC Hematology/BMT and Cellular Therapy Program [address] [address] Zonia Hoffman, NON CATEGORICAL PRESCHOOL TEACHER 800 [facility] [address] [place] [address] Social History Tobacco Use Types Packs/Day Years [...] go over her labs results Callback number: [phone] documented in this encounter Plan of Treatment Upcoming Encounters Date Type Department Care Team (Late st Contact Info) Description 11/28/2024 2:00 PM EDT Clinical Support [facility] CC Hematology/BMT and Cellular Therapy Program 750 [facility], [address] [place] [address] 11/28/2024 2:30 PM EDT Office Visit PAV Hematology/BMT and Cellular Therapy Program 750 [facility], [address] [place] [address] Zonia Hoffman, NON CATEGORICAL PRESCHOOL TEACHER 800 [facility] [address] [place] [address] 11/28/2024 4:00 PM EDT Appointment [facility] 1 [address] [place] [address] 11/29/2024 1:00 PM EDT Appointment [facility] 1 [address] [place] [address] 11/30/2024 1:00 PM EDT Appointment [facility] 2 [address] [place] [address] 12/01/2024 1:00 PM EDT Appointment [facility] 2 [address] [place] [address] 12/02/2024 2:30 PM EDT Appointment [facility] 2 [address] [place] [address] 12/03/2024 2:00 PM EDT Appointment [facility] 1 [address] [place] [address] 12/04/2024 1:00 PM EDT Appointment [facility] Infusion 800 [place] [address] documented as of this encounter Visit Diagnoses Not on filedocumented in this encounter Additional Health Concerns Assessment Noted Time A fall risk assessment has been complete d for the patient 09/30/2024 9:33 AM EDT A Body Mass Index follow-up plan has been documented for the patient 05/28/2024 1:52 PM EST documented as of this encounter Care Teams Admitting Supervisor Relationship Specialty Start Date End Date Jevon Vazquez MD [address] [place] [address] #1 #1 [place] [address] PCP - General 03/23/22 documented as of this encounter
--- OUTSIDE RECORDS SUMMARY | 2024-11-27 09:00 | XMS_ITS | Encounter Summary ---
Author Organization Healthcare Address [address] [place] [address] Care Team Providers Care Business Development Recruiter Name Role Phone Jevon Vazquez MD Primary Care Provider [phone] Encounter Details Date Type Department Care Team (Latest Contact Info) Description 11/24/2024 Travel Social History Tobacco Use Types Packs/Day [...] Hematology/BMT and Cellular Therapy Program [address] [address] 11/28/2024 2:30 PM EDT Office Visit [facility] Hematology/BMT and Cellular Therapy Program [address] [address] Zonia Hoffman, OFFICIAL COURT REPORTER 800 [facility] [address] [place] [phone] 11/28/2024 4:00 PM EDT Appointment [facility] 1 [address] [place] [address] 11/29/2024 1:00 PM EDT Appointment [facility] 1 [address] [place] [address] 11/30/2024 1:00 PM EDT Appointment [facility] 2 [address] [place] [address] 12/01/2024 1:00 PM EDT Appointment [facility] 2 [address] [place] [address] 12/02/2024 2:30 PM EDT Appointment [facility] 2 [address] [place] [address] 12/03/2024 2:00 PM EDT Appointment [facility] 1 [address] [place] [address] 12/04/2024 1:00 PM EDT Appointment [facility] [address] [place] [address] documented as of this encounter Visit Diagnoses Not on filedocumented in this encounter Additional Health Concerns Assessment Noted Time A fall risk assessment has been complete d for the patient 09/30/2024 9:33 AM EDT A Body Mass Index follow-up plan has been documented for the patient 05/28/2024 1:52 PM EST documented as of this encounter Care Teams Business Development Recruiter Relationship Specialty Start Date End Date Jevon Vazquez MD [address] [place] [address] #1 [address]1 [place] [address] PCP - General 03/23/22 documented as of this encounter
--- OUTSIDE RECORDS SUMMARY | 2024-11-27 09:00 | XMS_ITS | Encounter Summary ---
Author Organization Healthcare Address [address] [place] [address] Care Team Providers Care Casting Machine Operator Name Role Phone Jevon Vazquez MD Primary Care Provider [phone] Encounter Details Date Type Department Care Team ([facility] st Contact Info) Description 10/13/2024 Telephone [facility] Hematology/BMT and Cellular Therapy Program [address] [address] Zonia Hoffman, SOLAR PANEL TECHNICIAN 800 [facility] [address] [place] [address] Social History Tobacco Use Types Packs/Day Years [...] needs to be delayed again Callback number: [phone] documented in this encounter Plan of Treatment Upcoming Encounters Date Type Department Care Team ([facility] st Contact Info) Description 11/28/2024 2:00 PM EDT Clinical Support [facility] Hematology/BMT and Cellular Therapy Program [address] [address] 11/28/2024 2:30 PM EDT Office Visit [facility] Hematology/BMT and Cellular Therapy Program [address] [address] Zonia Hoffman, SOLAR PANEL TECHNICIAN 800 [facility] [address] [place] [address] 11/28/2024 4:00 PM EDT Appointment [facility] 1 [address] [place] [address] 11/29/2024 1:00 PM EDT Appointment [facility] 1 [address] [place] [address] 11/30/2024 1:00 PM EDT Appointment [facility] 2 [address] [place] [address] 12/01/2024 1:00 PM EDT Appointment [facility] 2 [address] [place] [address] 12/02/2024 2:30 PM EDT Appointment [facility] 2 [address] [place] [address] 12/03/2024 2:00 PM EDT Appointment [facility] 1 [address] [place] [address] 12/04/2024 1:00 PM EDT Appointment [facility] [address] [place] [address] documented as of this encounter Visit Diagnoses Not on filedocumented in this encounter Additional Health Concerns Assessment Noted Time A fall risk assessment has been complete d for the patient 09/30/2024 9:33 AM EDT A Body Mass Index follow-up plan has been documented for the patient 05/28/2024 1:52 PM EST documented as of this encounter Care Teams Casting Machine Operator Relationship Specialty Start Date End Date Jevon Vazquez MD [address] [place] [address] #1 #1 [place] [address] PCP - General 03/23/22 documented as of this encounter
--- OUTSIDE RECORDS SUMMARY | 2024-11-27 09:00 | XMS_ITS | Encounter Summary ---
Author Organization [facility] Address [address] [place] [address] Care Team Providers Care Risk And Insurance Manager Name Role Phone Jevon Vazquez MD Primary Care Provider [phone] Reason for Visit * Reason Comments Med Refill Encounter Details Date Type Department Care Team ([facility] Contact Info) Description 11/08/2024 Refill [facility] Hematology/BMT and Cellular Therapy Program [address] [phone] New Mckinney MD 800 [facility] [address] [place] [address] Social History Tobacco Use Types Packs/Day Years [...] [facility] Contact Info) Description 11/28/2024 2:00 PM EDT Clinical Support [facility] Hematology/BMT and Cellular Therapy Program [address] [address] 11/28/2024 2:30 PM EDT Office Visit [facility] Hematology/BMT and Cellular Therapy Program [address] [address] Zonia Hoffman, LOADER MAGAZINE GRINDER [address] [facility] [address] [place] [address] 11/28/2024 4:00 PM EDT Appointment [facility] 1 [address] [place] [address] 11/29/2024 1:00 PM EDT Appointment [facility] 1 [address] [place] [address] 11/30/2024 1:00 PM EDT Appointment [facility] 2 [address] [place] [address] 12/01/2024 1:00 PM EDT Appointment [facility] 2 [address] [place] [address] 12/02/2024 2:30 PM EDT Appointment [facility] 2 [address] [place] [address] 12/03/2024 2:00 PM EDT Appointment [facility] 1 [address] [place] [address] 12/04/2024 1:00 PM EDT Appointment [facility] [address] [place] [address] documented as of this encounter Visit Diagnoses Not on filedocumented in this encounter Additional Health Concerns Assessment Noted Time A fall risk assessment has been complete d for the patient 09/30/2024 9:33 AM EDT A Body Mass Index follow-up plan has been documented for the patient 05/28/2024 1:52 PM EST documented as of this encounter Care Teams Risk And Insurance Manager Relationship Specialty Start Date End Date Jevon Vazquez MD [address] [place] [address] #1 #1 [place] [address] PCP - General 03/23/22 documented as of this encounter
--- OUTSIDE RECORDS SUMMARY | 2024-11-27 09:00 | XMS_ITS | Encounter Summary ---
Author Organization [facility] Address [address] [place] [address] Care Team Providers Care Field Recorder Name Role Phone Jevon Vazquez MD Primary Care Provider [phone] Reason for Visit * Reason Comments Med Refill Encounter Details Date Type Department Care Team ([facility] Contact Info) Description 10/14/2024 Refill [facility] Hematology/BMT and Cellular Therapy Program [address] [phone] New Mckinney MD 800 [facility] [address] [place] [address] Social History Tobacco Use Types Packs/Day Years [...] ([facility] Contact Info) Description 11/28/2024 2:00 PM EDT Clinical Support [facility] Hematology/BMT and Cellular Therapy Program [address] [address] 11/28/2024 2:30 PM EDT Office Visit [facility] Hematology/BMT and Cellular Therapy Program [address] [address] Zonia Hoffman, FOOD MANAGEMENT AIDE [address] [facility] [address] [place] [address] 11/28/2024 4:00 PM EDT Appointment [facility] 1 [address] [place] [address] 11/29/2024 1:00 PM EDT Appointment [facility] 1 [address] [place] [address] 11/30/2024 1:00 PM EDT Appointment [facility] 2 [address] [place] [address] 12/01/2024 1:00 PM EDT Appointment [facility] 2 [address] [place] [address] 12/02/2024 2:30 PM EDT Appointment [facility] 2 [address] [place] [address] 12/03/2024 2:00 PM EDT Appointment [facility] 1 [address] [place] [address] 12/04/2024 1:00 PM EDT Appointment [facility] [address] [place] [address] documented as of this encounter Visit Diagnoses Not on filedocumented in this encounter Additional Health Concerns Assessment Noted Time A fall risk assessment has been complete d for the patient 09/30/2024 9:33 AM EDT A Body Mass Index follow-up plan has been documented for the patient 05/28/2024 1:52 PM EST documented as of this encounter Care Teams Field Recorder Relationship Specialty Start Date End Date Jevon Vazquez MD [address] [place] [address] #1 #1 [place] [address] PCP - General 03/23/22 documented as of this encounter
--- OUTSIDE RECORDS SUMMARY | 2024-11-27 09:00 | XMS_ITS | Encounter Summary ---
Author Organization Healthcare Address [address] [place] [address] Care Team Providers Care Veneer Puller Name Role Phone Jevon Vazquez MD Primary Care Provider [phone] Encounter Details Date Type Department Care Team [...] Hematology/BMT and Cellular Therapy Program [address] [address] 11/28/2024 2:30 PM EDT Office Visit [facility] Hematology/BMT and Cellular Therapy Program [address] [address] Zonia Hoffman, VOCAL MUSIC TEACHER 800 [facility] [address] [place] [address] 11/28/2024 4:00 PM EDT Appointment [facility] 1 [address] [place] [address] 11/29/2024 1:00 PM EDT Appointment [facility] 1 [address] [place] [address] 11/30/2024 1:00 PM EDT Appointment [facility] 2 [address] [place] [address] 12/01/2024 1:00 PM EDT Appointment [facility] 2 [address] [place] [address] 12/02/2024 2:30 PM EDT Appointment [facility] 2 [address] [place] [address] 12/03/2024 2:00 PM EDT Appointment [facility] 1 [address] [place] [address] 12/04/2024 1:00 PM EDT Appointment [facility] [address] [place] [address] documented as of this encounter Visit Diagnoses Not on filedocumented in this encounter Additional Health Concerns Assessment Noted Time A fall risk assessment has been complete d for the patient 09/30/2024 9:33 AM EDT A Body Mass Index follow-up plan has been documented for the patient 05/28/2024 1:52 PM EST documented as of this encounter Care Teams Veneer Puller Relationship Specialty Start Date End Date Jevon Vazquez MD [address] [place] [address] #1 #1 [place] [address] PCP - General 03/23/22 documented as of this encounter
--- OUTSIDE RECORDS SUMMARY | 2024-11-27 09:00 | XMS_ITS ---
Author Organization [facility] Address [address] [place] [address] Care Team Providers Care Insole Cementer Name Role Phone Jevon Vazquez MD Primary Care Provider [phone] Active Problems Problem Noted Date Diagnosed Date [...]
--- OUTSIDE RECORDS SUMMARY | 2024-11-27 09:00 | XMS_ITS | Encounter Summary ---
Author Organization Healthcare Address [address] [place] [address] Care Team Providers Care Forest Fire Equipment Operator Name Role Phone Jevon Vazquez MD Primary Care Provider [phone] Encounter Details Date Type Department Care Team [...] Hematology/BMT and Cellular Therapy Program [address] [address] 11/28/2024 2:30 PM EDT Office Visit [facility] Hematology/BMT and Cellular Therapy Program [address] [address] Zonia Hoffman, SOCIAL SERVICES COORDINATOR 800 [facility] [address] [place] [address] 11/28/2024 4:00 PM EDT Appointment [facility] 1 [address] [place] [address] 11/29/2024 1:00 PM EDT Appointment [facility] 1 [address] [place] [address] 11/30/2024 1:00 PM EDT Appointment [facility] 2 [address] [place] [address] 12/01/2024 1:00 PM EDT Appointment [facility] 2 [address] [place] [address] 12/02/2024 2:30 PM EDT Appointment [facility] 2 [address] [place] [address] 12/03/2024 2:00 PM EDT Appointment [facility] 1 [address] [place] [address] 12/04/2024 1:00 PM EDT Appointment [facility] 800 [place] [address] documented as of this encounter Visit Diagnoses Not on filedocumented in this encounter Additional Health Concerns Assessment Noted Time A fall risk assessment has been complete d for the patient 09/30/2024 9:33 AM EDT A Body Mass Index follow-up plan has been documented for the patient 05/28/2024 1:52 PM EST documented as of this encounter Care Teams Forest Fire Equipment Operator Relationship Specialty Start Date End Date Jevon Vazquez MD [address] [place] [address] #1 #1 [place] [address] PCP - General 03/23/22 documented as of this encounter
--- OUTSIDE RECORDS SUMMARY | 2024-11-27 09:00 | XMS_ITS | Encounter Summary ---
Author Organization Healthcare Address [address] [place] [address] Care Team Providers Care Newspaper Journalist Name Role Phone Jevon Vazquez MD Primary Care Provider [phone] Encounter Details Date Type Department Care Team [...] Hematology/BMT and Cellular Therapy Program [address] [address] 11/28/2024 2:30 PM EDT Office Visit [facility] Hematology/BMT and Cellular Therapy Program [address] [address] Zonia Hoffman, SENIOR DIRECTOR CREATIVE SERVICES 800 [facility] [address] [place] [address] 11/28/2024 4:00 PM EDT Appointment [facility] 1 [address] [place] [address] 11/29/2024 1:00 PM EDT Appointment [facility] 1 [address] [place] [address] 11/30/2024 1:00 PM EDT Appointment [facility] 2 [address] [place] [address] 12/01/2024 1:00 PM EDT Appointment [facility] 2 [address] [place] [address] 12/02/2024 2:30 PM EDT Appointment [facility] 2 [address] [place] [address] 12/03/2024 2:00 PM EDT Appointment [facility] 1 [address] [place] [address] 12/04/2024 1:00 PM EDT Appointment [facility] 800 [place] [address] documented as of this encounter Visit Diagnoses Not on filedocumented in this encounter Additional Health Concerns Assessment Noted Time A fall risk assessment has been complete d for the patient 09/30/2024 9:33 AM EDT A Body Mass Index follow-up plan has been documented for the patient 05/28/2024 1:52 PM EST documented as of this encounter Care Teams Newspaper Journalist Relationship Specialty Start Date End Date Jevon Vazquez MD [address] [place] [address] #1 #1 [place] [address] PCP - General 03/23/22 documented as of this encounter
--- OUTSIDE RECORDS SUMMARY | 2024-11-27 09:00 | XMS_ITS | Encounter Summary ---
Author Organization Healthcare Address [address] [place] [address] Care Team Providers Care Card Cleaner Name Role Phone Jevon Vazquez MD Primary Care Provider [phone] Encounter Details Date Type Department Care Team [...] Hematology/BMT and Cellular Therapy Program [address] [address] 11/28/2024 2:30 PM EDT Office Visit [facility] Hematology/BMT and Cellular Therapy Program [address] [address] Zonia Hoffman, STRUCTURAL METAL FABRICATOR APPRENTICE 800 [facility] [address] [place] [address] 11/28/2024 4:00 PM EDT Appointment [facility] 1 [address] [place] [address] 11/29/2024 1:00 PM EDT Appointment [facility] 1 [address] [place] [address] 11/30/2024 1:00 PM EDT Appointment [facility] 2 [address] [place] [address] 12/01/2024 1:00 PM EDT Appointment [facility] 2 [address] [place] [address] 12/02/2024 2:30 PM EDT Appointment [facility] 2 [address] [place] [address] 12/03/2024 2:00 PM EDT Appointment [facility] 1 [address] [place] [address] 12/04/2024 1:00 PM EDT Appointment [facility] 800 [place] [address] documented as of this encounter Visit Diagnoses Not on filedocumented in this encounter Additional Health Concerns Assessment Noted Time A fall risk assessment has been complete d for the patient 09/19/2024 8:38 AM EDT A Body Mass Index follow-up plan has been documented for the patient 05/28/2024 1:52 PM EST documented as of this encounter Care Teams Card Cleaner Relationship Specialty Start Date End Date Jevon Vazquez MD [address] [place] [address] #1 #1 [place] [address] PCP - General 03/23/22 documented as of this encounter
--- OUTSIDE RECORDS SUMMARY | 2024-11-27 09:00 | XMS_ITS | Encounter Summary ---
Author Organization Healthcare Address [address] [place] [address] Care Team Providers Care Back Padder Name Role Phone Jevon Vazquez MD Primary Care Provider [phone] Encounter Details Date Type Department Care Team [...] Hematology/BMT and Cellular Therapy Program [address] [address] 11/28/2024 2:30 PM EDT Office Visit [facility] Hematology/BMT and Cellular Therapy Program [address] [address] Zonia Hoffman, CUSTOMER ADVISOR 800 [facility] [address] [place] [address] 11/28/2024 4:00 PM EDT Appointment [facility] 1 [address] [place] [address] 11/29/2024 1:00 PM EDT Appointment [facility] 1 [address] [place] [address] 11/30/2024 1:00 PM EDT Appointment [facility] 2 [address] [place] [address] 12/01/2024 1:00 PM EDT Appointment [facility] 2 [address] [place] [address] 12/02/2024 2:30 PM EDT Appointment [facility] 2 [address] [place] [address] 12/03/2024 2:00 PM EDT Appointment [facility] 1 [address] [place] [address] 12/04/2024 1:00 PM EDT Appointment [facility] [address] [place] [address] documented as of this encounter Visit Diagnoses Not on filedocumented in this encounter Additional Health Concerns Assessment Noted Time A fall risk assessment has been complete d for the patient 09/30/2024 9:33 AM EDT A Body Mass Index follow-up plan has been documented for the patient 05/28/2024 1:52 PM EST documented as of this encounter Care Teams Back Padder Relationship Specialty Start Date End Date Jevon Vazquez MD [address] [place] [address] #1 #1 [place] [address] PCP - General 03/23/22 documented as of this encounter
--- OUTSIDE RECORDS SUMMARY | 2024-11-27 09:00 | XMS_ITS | Encounter Summary ---
Author Organization Healthcare Address [address] [place] [address] Care Team Providers Care Mechanical Facilities Technician Name Role Phone Jevon Vazquez MD Primary Care Provider [phone] Encounter Details Date Type Department Care Team [...] Hematology/BMT and Cellular Therapy Program [address] [address] 11/28/2024 2:30 PM EDT Office Visit [facility] Hematology/BMT and Cellular Therapy Program [address] [address] Zonia Hoffman, MANAGER PROVIDER RELATIONS 800 [facility] [address] [place] [address] 11/28/2024 4:00 PM EDT Appointment [facility] 1 [address] [place] [address] 11/29/2024 1:00 PM EDT Appointment [facility] 1 [address] [place] [address] 11/30/2024 1:00 PM EDT Appointment [facility] 2 [address] [place] [address] 12/01/2024 1:00 PM EDT Appointment [facility] 2 [address] [place] [address] 12/02/2024 2:30 PM EDT Appointment [facility] 2 [address] [place] [address] 12/03/2024 2:00 PM EDT Appointment [facility] 1 [address] [place] [address] 12/04/2024 1:00 PM EDT Appointment [facility] 800 [place] [address] documented as of this encounter Visit Diagnoses Not on filedocumented in this encounter Additional Health Concerns Assessment Noted Time A fall risk assessment has been complete d for the patient 09/30/2024 9:33 AM EDT A Body Mass Index follow-up plan has been documented for the patient 05/28/2024 1:52 PM EST documented as of this encounter Care Teams Mechanical Facilities Technician Relationship Specialty Start Date End Date Jevon Vazquez MD [address] [place] [address] #1 #1 [place] [address] PCP - General 03/23/22 documented as of this encounter
--- OUTSIDE RECORDS SUMMARY | 2024-11-27 09:00 | XMS_ITS | Encounter Summary ---
Author Organization Healthcare Address [address] [place] [address] Care Team Providers Care Spray Pilot Name Role Phone Jevon Vazquez MD Primary Care Provider [phone] Encounter Details Date Type Department Care Team [...] Hematology/BMT and Cellular Therapy Program [address] [address] 11/28/2024 2:30 PM EDT Office Visit [facility] Hematology/BMT and Cellular Therapy Program [address] [address] Zonia Hoffman, KNITTING MACHINE FIXER HEAD 800 [facility] [address] [place] [address] 11/28/2024 4:00 PM EDT Appointment [facility] 1 [address] [place] [address] 11/29/2024 1:00 PM EDT Appointment [facility] 1 [address] [place] [address] 11/30/2024 1:00 PM EDT Appointment [facility] 2 [address] [place] [address] 12/01/2024 1:00 PM EDT Appointment [facility] 2 [address] [place] [address] 12/02/2024 2:30 PM EDT Appointment [facility] 2 [address] [place] [address] 12/03/2024 2:00 PM EDT Appointment [facility] 1 [address] [place] [address] 12/04/2024 1:00 PM EDT Appointment [facility] 800 [place] [address] documented as of this encounter Visit Diagnoses Not on filedocumented in this encounter Additional Health Concerns Assessment Noted Time A fall risk assessment has been complete d for the patient 09/30/2024 9:33 AM EDT A Body Mass Index follow-up plan has been documented for the patient 05/28/2024 1:52 PM EST documented as of this encounter Care Teams Spray Pilot Relationship Specialty Start Date End Date Jevon Vazquez MD [address] [place] [address] #1 #1 [place] [address] PCP - General 03/23/22 documented as of this encounter
--- OUTSIDE RECORDS SUMMARY | 2024-11-27 09:00 | XMS_ITS | Encounter Summary ---
Author Organization Healthcare Address [address] [place] [address] Care Team Providers Care Chip Separator Name Role Phone Jevon Vazquez MD Primary [...] Hematology/BMT and Cellular Therapy Program [address] [address] 11/28/2024 2:30 PM EDT Office Visit [facility] Hematology/BMT and Cellular Therapy Program [address] [address] Zonia Hoffman, PLANT ENGINEERING SUPERVISOR 800 [facility] [address] [place] [address] 11/28/2024 4:00 PM EDT Appointment [facility] 1 [address] [place] [address] 11/29/2024 1:00 PM EDT Appointment [facility] 1 [address] [place] [address] 11/30/2024 1:00 PM EDT Appointment [facility] 2 [address] [place] [address] 12/01/2024 1:00 PM EDT Appointment [facility] 2 [address] [place] [address] 12/02/2024 2:30 PM EDT Appointment [facility] 2 [address] [place] [address] 12/03/2024 2:00 PM EDT Appointment [facility] 1 [address] [place] [address] 12/04/2024 1:00 PM EDT Appointment [facility] 800 [place] [address] documented as of this encounter Visit Diagnoses Not on filedocumented in this encounter Additional Health Concerns Assessment Noted Time A fall risk assessment has been complete d for the patient 09/30/2024 9:33 AM EDT A Body Mass Index follow-up plan has been documented for the patient 05/28/2024 1:52 PM EST documented as of this encounter Care Teams Chip Separator Relationship Specialty Start Date End Date Jevon Vazquez MD [address] [place] [address] #1 #1 [place] [address] PCP - General 03/23/22 documented as of this encounter
--- OUTSIDE RECORDS SUMMARY | 2024-11-27 09:00 | XMS_ITS | Clinical Summary ---
Author Organization [facility] Address [address] [place] [address] Care Team Providers Care Citizen Participation Specialist Name Role Phone David Vazquez Primary Care Provider [phone] Allergies No known active allergies Medications atorvastatin [...] series) 2025 Medical Devices Implanted Type Area Solar Sales Energy Advisor Device Identifier Shelf Expiration Date Model / Serial / Lot Mis Ply Scr 6.5x50mm - [id number] Implanted:Qty : 1 on 01/30/2023 by Ivan Bartholomew MD at [facility] Screw N/A: Spine Lumbar [employer] [id number] / / Mis Ply Scr 6.5x45mm - [id number] Implanted:Qty : 3 on 01/30/2023 by Ivan Bartholomew MD at [facility] Screw N/A: Spine Lumbar [employer] [id number] / / Reline Mas Reduction Screw 7.5x45 - [id number] Implanted:Qty : 2 on 01/30/2023 by Ivan Bartholomew MD at [facility] Screw N/A: Spine Lumbar [employer] [id number] / / Grft Dbm Vesuvius Putty 5cc - [id number] Implanted:Qty : 1 on 01/30/2023 by Ivan Bartholomew MD at [facility] [employer] [id number] 04/20/2025 [id number] P / [id number] / Putty I-Factor 5.0cc - [id number] Implanted:Qty : 1 on 01/30/2023 by Ivan Bartholomew MD at [facility] N/A: Spine Lumbar [employer] 03/15/2025 [id number] / / [id number] Modulus Xlw [id number] 10 Degree - [id number] Implanted:Qty : 1 on 01/30/2023 by Ivan Bartholomew MD at [facility] N/A: Spine Lumbar [employer] [id number] / / [id number] Modulus Xlw [id number] - [id number] Implanted:Qty : 1 on 01/30/2023 by Ivan Bartholomew MD at [facility] N/A: Spine Lumbar [employer] 09/28/2027 [id number] / / [id number] Reln Lock Scr 5.5mm Opn Tulip - [id number] Implanted:Qty : 6 on 01/30/2023 by Ivan Bartholomew MD at [facility] N/A: Spine Lumbar [employer] [id number] / / Reln Mas Ti Petar 5.5x70mm - [id number] Implanted:Qty : 2 on 01/30/2023 by Ivan Bartholomew MD at [facility] N/A: Spine Lumbar [employer] [id number] / / Procedures Procedure Name Priority Date/Time [...] Hgb A1C 6.0(H) 4.0 - 5.6 % [facility] Comment: Reference Ranges [...] Glycohemoglobin Standardization program (NGSP) and [facility] to [facility] Estimated Average Glucose 126(H) 68 - 114 mg/dL [facility] Whole Blood (Blood) 01/24/2023 2:32 PM EDT 01/24/2023 6:00 PM EDT us Ivan Bartholomew MD CHEMISTRY ORDERABLES Fin al Result [facility] [address] * (ABNORMAL) BASIC METABOLIC PANEL (BMP=EP1) (01/24/2023 2:32 PM EDT) Sodium 141 135 - 146 mmol/L [facility] Potassium 4.8 3.5 - 5.1 mmol/L [facility] Chloride 107 98 - 110 mmol/L [facility] CO2 24 22 - 29 mmol/L [facility] Anion Gap 10 5 - 13 mmol/L [facility] Comment:Anion gap calculatio n does not include potassium (K+) value. BUN 17 7 - 25 mg/dL [facility] Creatinine 1.20 0.50 - 1.20 mg/dL [facility] Glucose 125(H) 71 - 99 mg/dL [facility] Comment:Reference range (71- 99 mg/dL) refers only to fasting samples, and does not apply to non-fasting samples. eGFR CKD-EPI 2020 48 See Note [facility] Comment: eGFR calculated with 2020 CKD-EPI equation using creatinine, patient's age and gender. Other factors, especially muscle mass, may affect accuracy and need to be considered. Patient values should be interpreted as a trend. The reference interval is >60 mL/min/1.73m2. Calcium 10.3 8.5 - 10.5 mg/dL [facility] BUN/Creatinine Ratio 14 [facility] Serum 01/24/2023 2:32 PM EDT 01/24/2023 5:54 PM EDT us Lexi SUAREZ CHEMISTRY ORDERABLES Final Resu lt [facility] [address] from Last 3 Months or Most Recently Relevant to Health Maintenance Insurance MEDICARE PART A [facility] [address] [address] [place] [address] ANTH Advance Directives For more information, please contact: [phone] * Full Code (Latest Code Status on File) Date Activated Date Inactivated Comments 01/30/2023 9:13 AM No automated chest compression devices for [facility] Patients Care Teams Citizen Participation Specialist Relationship Specialty Start Date End Date David Vazquez [address] [place] [id number] PCP - General 01/24/23
--- OUTSIDE RECORDS SUMMARY | 2024-11-27 09:00 | XMS_ITS | Encounter Summary ---
Author Organization Healthcare Address [address] [place] [address] Care Team Providers Care Accountant Helper Name Role Phone Jevon Vazquez MD Primary Care Provider [phone] Encounter Details Date Type Department Care Team [...] Hematology/BMT and Cellular Therapy Program [address] [address] 11/28/2024 2:30 PM EDT Office Visit [facility] Hematology/BMT and Cellular Therapy Program [address] [address] Zonia Hoffman, AIR CONDITIONING SERVICE TECHNICIAN 800 [facility] [address] [place] [address] 11/28/2024 4:00 PM EDT Appointment [facility] 1 [address] [place] [address] 11/29/2024 1:00 PM EDT Appointment [facility] 1 [address] [place] [address] 11/30/2024 1:00 PM EDT Appointment [facility] 2 [address] [place] [address] 12/01/2024 1:00 PM EDT Appointment [facility] 2 [address] [place] [address] 12/02/2024 2:30 PM EDT Appointment [facility] 2 [address] [place] [address] 12/03/2024 2:00 PM EDT Appointment [facility] 1 [address] [place] [address] 12/04/2024 1:00 PM EDT Appointment [facility] [address] [place] [address] documented as of this encounter Visit Diagnoses Not on filedocumented in this encounter Additional Health Concerns Assessment Noted Time A fall risk assessment has been complete d for the patient 09/30/2024 9:33 AM EDT A Body Mass Index follow-up plan has been documented for the patient 05/28/2024 1:52 PM EST documented as of this encounter Care Teams Accountant Helper Relationship Specialty Start Date End Date Jevon Vazquez MD [address] [place] [address] [address]1 [address] [place] [address] PCP - General 03/23/22 documented as of this encounter
--- OUTSIDE RECORDS SUMMARY | 2024-11-27 09:00 | XMS_ITS | Encounter Summary ---
Author Organization Healthcare Address [address] [place] [address] Care Team Providers Care Data Science And Iot Manager Name Role Phone Jevon Vazquez MD Primary Care Provider [phone] Encounter Details Date Type Department Care Team (Latest Contact Info) Description 11/26/2024 Travel Social History Tobacco Use Types Packs/Day [...] Hematology/BMT and Cellular Therapy Program [address] [address] 11/28/2024 2:30 PM EDT Office Visit [facility] Hematology/BMT and Cellular Therapy Program [address] [address] Zonia Hoffman, CORPORATE DEVELOPMENT ANALYST 800 [facility] [address] [place] [address] 11/28/2024 4:00 PM EDT Appointment [facility] 1 [address] [place] [address] 11/29/2024 1:00 PM EDT Appointment [facility] 1 [address] [place] [address] 11/30/2024 1:00 PM EDT Appointment [facility] 2 [address] [place] [address] 12/01/2024 1:00 PM EDT Appointment [facility] 2 [address] [place] [address] 12/02/2024 2:30 PM EDT Appointment [facility] 2 [address] [place] [address] 12/03/2024 2:00 PM EDT Appointment [facility] 1 [address] [place] [address] 12/04/2024 1:00 PM EDT Appointment [facility] [address] [place] [address] documented as of this encounter Visit Diagnoses Not on filedocumented in this encounter Additional Health Concerns Assessment Noted Time A fall risk assessment has been complete d for the patient 09/30/2024 9:33 AM EDT A Body Mass Index follow-up plan has been documented for the patient 05/28/2024 1:52 PM EST documented as of this encounter Care Teams Data Science And Iot Manager Relationship Specialty Start Date End Date Jevon Vazquez MD [address] [place] [address] #1 [address]1 [place] [address] PCP - General 03/23/22 documented as of this encounter
--- OUTSIDE RECORDS SUMMARY | 2024-11-27 09:00 | XMS_ITS | Encounter Summary ---
Author Organization [facility] Address [address] [place] [address] Care Team Providers Care Banking Services Advisor Name Role Phone Jevon Vazquez MD Primary Care Provider [phone] Reason for Visit * Reason Comments Med Refill Encounter Details Date Type Department Care Team ([facility] Contact Info) Description 10/15/2024 Refill [facility] Hematology/BMT and Cellular Therapy Program [address] [phone] [place] MD 800 [facility] [address] [place] [address] Social History Tobacco Use Types Packs/Day Years [...] Team ([facility] Contact Info) Description 11/28/2024 2:00 PM EDT Clinical Support [facility] Hematology/BMT and Cellular Therapy Program [address] [address] 11/28/2024 2:30 PM EDT Office Visit [facility] Hematology/BMT and Cellular Therapy Program [address] [address] Zonia Hoffman, GENERAL OFFICE ASSISTANT [address] [facility] [address] [place] [address] 11/28/2024 4:00 PM EDT Appointment [facility] 1 [address] [place] [address] 11/29/2024 1:00 PM EDT Appointment [facility] 1 [address] [place] [address] 11/30/2024 1:00 PM EDT Appointment [facility] 2 [address] [place] [address] 12/01/2024 1:00 PM EDT Appointment [facility] 2 [address] [place] [address] 12/02/2024 2:30 PM EDT Appointment [facility] 2 [address] [place] [address] 12/03/2024 2:00 PM EDT Appointment [facility] 1 [address] [place] [address] 12/04/2024 1:00 PM EDT Appointment [facility] [address] [place] [address] documented as of this encounter Visit Diagnoses Not on filedocumented in this encounter Additional Health Concerns Assessment Noted Time A fall risk assessment has been complete d for the patient 09/30/2024 9:33 AM EDT A Body Mass Index follow-up plan has been documented for the patient 05/28/2024 1:52 PM EST documented as of this encounter Care Teams Banking Services Advisor Relationship Specialty Start Date End Date Jevon Vazquez MD [address] [place] [address] #1 [address]1 [place] [address] PCP - General 03/23/22 documented as of this encounter
--- OUTSIDE RECORDS SUMMARY | 2024-11-27 09:00 | XMS_ITS | Encounter Summary ---
Author Organization Healthcare Address [address] [place] [address] Care Team Providers Care Design/Animation Instructor Name Role Phone Jevon Vazquez MD Primary Care Provider [phone] Encounter Details Date Type Department Care Team (Latest Contact Info) Description 11/25/2024 Travel Social History Tobacco Use Types Packs/Day [...] Hematology/BMT and Cellular Therapy Program [address] [address] 11/28/2024 2:30 PM EDT Office Visit [facility] Hematology/BMT and Cellular Therapy Program [address] [address] Zonia Hoffman, PETROPHYSICAL ENGINEER 800 [facility] [address] [place] [address] 11/28/2024 4:00 PM EDT Appointment [facility] 1 [address] [place] [address] 11/29/2024 1:00 PM EDT Appointment [facility] 1 [address] [place] [address] 11/30/2024 1:00 PM EDT Appointment [facility] 2 [address] [place] [address] 12/01/2024 1:00 PM EDT Appointment [facility] 2 [address] [place] [address] 12/02/2024 2:30 PM EDT Appointment [facility] 2 [address] [place] [address] 12/03/2024 2:00 PM EDT Appointment [facility] 1 [address] [place] [address] 12/04/2024 1:00 PM EDT Appointment [facility] [address] [place] [address] documented as of this encounter Visit Diagnoses Not on filedocumented in this encounter Additional Health Concerns Assessment Noted Time A fall risk assessment has been complete d for the patient 09/30/2024 9:33 AM EDT A Body Mass Index follow-up plan has been documented for the patient 05/28/2024 1:52 PM EST documented as of this encounter Care Teams Design/Animation Instructor Relationship Specialty Start Date End Date Jevon Vazquez MD [address] [place] [address] #1 [address] [place] [address] PCP - General 03/23/22 documented as of this encounter
--- OUTSIDE RECORDS SUMMARY | 2024-11-27 09:00 | XMS_ITS | Encounter Summary ---
Author Organization Healthcare Address [address] [place] [address] Care Team Providers Care Puffer Tender Name Role Phone Jevon Vazquez MD Primary Care Provider [phone] Encounter Details Date Type Department Care Team (Late Contact Info) Description 09/30/2024 Telephone [facility] Hematology/BMT and Cellular Therapy Program [address] [place] [address] Zoraida Good, RN [facility] Social History Tobacco [...] CC Hematology/BMT and Cellular Therapy Program 750 [facility] [address] [place] [address] [place] [address] 11/28/2024 2:30 PM EDT Office Visit [facility] Hematology/BMT and Cellular Therapy Program 750 [facility] [place] [address] Zonia Hoffman, CFD ENGINEER 800 [facility] [address] [place] [address] 11/28/2024 4:00 PM EDT Appointment [facility] 1 [address] [place] [address] 11/29/2024 1:00 PM EDT Appointment [facility] 1 [address] [place] [address] 11/30/2024 1:00 PM EDT Appointment [facility] 2 [address] [place] [address] 12/01/2024 1:00 PM EDT Appointment [facility] 2 [address] [place] [address] 12/02/2024 2:30 PM EDT Appointment [facility] 2 [address] [place] [address] 12/03/2024 2:00 PM EDT Appointment [facility] 1 [address] [place] [address] 12/04/2024 1:00 PM EDT Appointment [facility] [address] [place] [address] documented as of this encounter Visit Diagnoses Not on filedocumented in this encounter Additional Health Concerns Assessment Noted Time A fall risk assessment has been complete d for the patient 09/30/2024 9:33 AM EDT A Body Mass Index follow-up plan has been documented for the patient 05/28/2024 1:52 PM EST documented as of this encounter Care Teams Puffer Tender Relationship Specialty Start Date End Date Jevon Vazquez MD [address] [place] [address] #1 #1 [place] [address] PCP - General 03/23/22 documented as of this encounter
--- OUTSIDE RECORDS SUMMARY | 2024-11-27 09:00 | XMS_ITS | Encounter Summary ---
Author Organization Healthcare Address [address] [place] [address] Care Team Providers Care Supervisor Plastering Name Role Phone Jevon Vazquez MD Primary Care Provider [phone] Encounter Details Date Type Department Care Team [...] Hematology/BMT and Cellular Therapy Program [address] [address] 11/28/2024 2:30 PM EDT Office Visit [facility] Hematology/BMT and Cellular Therapy Program [address] [address] Zonia Hoffman, TECHNICAL HEALTHCARE CONSULTANT 800 [facility] [address] [place] [address] 11/28/2024 4:00 PM EDT Appointment [facility] 1 [address] [place] [address] 11/29/2024 1:00 PM EDT Appointment [facility] 1 [address] [place] [address] 11/30/2024 1:00 PM EDT Appointment [facility] 2 [address] [place] [address] 12/01/2024 1:00 PM EDT Appointment [facility] 2 [address] [place] [address] 12/02/2024 2:30 PM EDT Appointment [facility] 2 [address] [place] [address] 12/03/2024 2:00 PM EDT Appointment [facility] 1 [address] [place] [address] 12/04/2024 1:00 PM EDT Appointment [facility] [address] [place] [address] documented as of this encounter Visit Diagnoses Not on filedocumented in this encounter Additional Health Concerns Assessment Noted Time A fall risk assessment has been complete d for the patient 09/30/2024 9:33 AM EDT A Body Mass Index follow-up plan has been documented for the patient 05/28/2024 1:52 PM EST documented as of this encounter Care Teams Supervisor Plastering Relationship Specialty Start Date End Date Jevon Vazquez MD [address] [place] [address] #1 [address] [place] [address] PCP - General 03/23/22 documented as of this encounter
--- OUTSIDE RECORDS SUMMARY | 2024-11-27 09:00 | XMS_ITS | Encounter Summary ---
Author Organization Healthcare Address [address] [place] [address] Care Team Providers Care Stores Despatch Hand Name Role Phone Jevon aVzquez MD Primary Care Provider [phone] Encounter Details Date Type Department Care Team [...] Hematology/BMT and Cellular Therapy Program [address] [address] 11/28/2024 2:30 PM EDT Office Visit [facility] Hematology/BMT and Cellular Therapy Program [address] [address] Zonia Hoffman, GEAR GRINDER 800 [facility] [address] [place] [address] 11/28/2024 4:00 PM EDT Appointment [facility] 1 [address] [place] [address] 11/29/2024 1:00 PM EDT Appointment [facility] 1 [address] [place] [address] 11/30/2024 1:00 PM EDT Appointment [facility] 2 [address] [place] [address] 12/01/2024 1:00 PM EDT Appointment [facility] 2 [address] [place] [address] 12/02/2024 2:30 PM EDT Appointment [facility] 2 [address] [place] [address] 12/03/2024 2:00 PM EDT Appointment [facility] 1 [address] [place] [address] 12/04/2024 1:00 PM EDT Appointment [facility] In[facility] [address] [place] [address] documented as of this encounter Visit Diagnoses Not on filedocumented in this encounter Additional Health Concerns Assessment Noted Time A fall risk assessment has been complete d for the patient 09/30/2024 9:33 AM EDT A Body Mass Index follow-up plan has been documented for the patient 05/28/2024 1:52 PM EST documented as of this encounter Care Teams Stores Despatch Hand Relationship Specialty Start Date End Date Jevon Vazquez MD [address] [place] [address] #1 [address]1 [place] [address] PCP - General 03/23/22 documented as of this encounter
--- OUTSIDE RECORDS SUMMARY | 2024-11-27 09:00 | XMS_ITS | Encounter Summary ---
Author Organization Healthcare Address [address] [place] [address] Care Team Providers Care Pacu Rn Name Role Phone Jevon Vazquez MD Primary Care Provider [phone] Encounter Details Date Type Department Care Team [...] Hematology/BMT and Cellular Therapy Program [address] [address] 11/28/2024 2:30 PM EDT Office Visit [facility] Hematology/BMT and Cellular Therapy Program [address] [address] Zonia Hoffman, ASSISTANT BOYS TRACK COACH 800 [facility] [address] [place] [address] 11/28/2024 4:00 PM EDT Appointment [facility] 1 [address] [place] [address] 11/29/2024 1:00 PM EDT Appointment [facility] 1 [address] [place] [address] 11/30/2024 1:00 PM EDT Appointment [facility] 2 [address] [place] [address] 12/01/2024 1:00 PM EDT Appointment [facility] 2 [address] [place] [address] 12/02/2024 2:30 PM EDT Appointment [facility] 2 [address] [place] [address] 12/03/2024 2:00 PM EDT Appointment [facility] 1 [address] [place] [address] 12/04/2024 1:00 PM EDT Appointment [facility] [address] [place] [address] documented as of this encounter Visit Diagnoses Not on filedocumented in this encounter Additional Health Concerns Assessment Noted Time A fall risk assessment has been complete d for the patient 09/30/2024 9:33 AM EDT A Body Mass Index follow-up plan has been documented for the patient 05/28/2024 1:52 PM EST documented as of this encounter Care Teams Pacu Rn Relationship Specialty Start Date End Date Jevon Vazquez MD [address] [place] [address] #1 [address] [place] [address] PCP - General 03/23/22 documented as of this encounter
--- OUTSIDE RECORDS SUMMARY | 2024-11-27 09:00 | XMS_ITS | Encounter Summary ---
Author Organization Healthcare Address [address] [place] [address] Care Team Providers Care Cork Compounder Name Role Phone Jevon Vazquez MD Primary Care Provider [phone] Encounter Details Date Type Department Care Team ([facility] st Contact Info) Description 10/27/2024 Telephone [facility] Hematology/BMT and Cellular Therapy Program [address] [address] Zonia Hoffman, DOUBLE BACKER 800 [facility] [address] [place] [address] Social History Tobacco Use Types Packs/Day Years [...] and her new appts will be on [employer]. She verbalizes understanding. * Telephone Encounter - [...] Hematology/BMT and Cellular Therapy Program [address] [address] 11/28/2024 2:30 PM EDT Office Visit [facility] Hematology/BMT and Cellular Therapy Program [address] [address] Zonia Hoffman, DOUBLE BACKER 800 [facility] [address] [place] [address] 11/28/2024 4:00 PM EDT Appointment [facility] 1 [address] [place] [address] 11/29/2024 1:00 PM EDT Appointment [facility] 1 [address] [place] [address] 11/30/2024 1:00 PM EDT Appointment [facility] 2 [address] [place] [address] 12/01/2024 1:00 PM EDT Appointment [facility] 2 [address] [place] [address] 12/02/2024 2:30 PM EDT Appointment [facility] 2 [address] [place] [address] 12/03/2024 2:00 PM EDT Appointment [facility] 1 [address] [place] [address] 12/04/2024 1:00 PM EDT Appointment [facility] Infusion [address] [place] [address] documented as of this encounter Visit Diagnoses Not on filedocumented in this encounter Additional Health Concerns Assessment Noted Time A fall risk assessment has been complete d for the patient 09/30/2024 9:33 AM EDT A Body Mass Index follow-up plan has been documented for the patient 05/28/2024 1:52 PM EST documented as of this encounter Care Teams Cork Compounder Relationship Specialty Start Date End Date Jevon Vazquez MD [address] [place] [address] #1 #1 [place] [address] PCP - General 03/23/22 documented as of this encounter
--- OUTSIDE RECORDS SUMMARY | 2024-11-27 09:00 | XMS_ITS | Encounter Summary ---
Author Organization Healthcare Address [address] [place] [address] Care Team Providers Care Name Plate Stamper Name Role Phone Jevon Vazquez MD Primary Care Provider [phone] Encounter Details Date Type Department Care Team [...] Hematology/BMT and Cellular Therapy Program [address] [address] 11/28/2024 2:30 PM EDT Office Visit [facility] Hematology/BMT and Cellular Therapy Program [address] [address] Zonia Hoffman, CHARGE MANAGER 800 [facility] [address] [place] [address] 11/28/2024 4:00 PM EDT Appointment [facility] 1 [address] [place] [address] 11/29/2024 1:00 PM EDT Appointment [facility] 1 [address] [place] [address] 11/30/2024 1:00 PM EDT Appointment [facility] 2 [address] [place] [address] 12/01/2024 1:00 PM EDT Appointment [facility] 2 [address] [place] [address] 12/02/2024 2:30 PM EDT Appointment [facility] 2 [address] [place] [address] 12/03/2024 2:00 PM EDT Appointment [facility] 1 [address] [place] [address] 12/04/2024 1:00 PM EDT Appointment [facility] [address] [place] [address] documented as of this encounter Visit Diagnoses Not on filedocumented in this encounter Additional Health Concerns Assessment Noted Time A fall risk assessment has been complete d for the patient 09/30/2024 9:33 AM EDT A Body Mass Index follow-up plan has been documented for the patient 05/28/2024 1:52 PM EST documented as of this encounter Care Teams Name Plate Stamper Relationship Specialty Start Date End Date Jevon Vazquez MD [address] [place] [address] #1 [address] [place] [address] PCP - General 03/23/22 documented as of this encounter
--- OUTSIDE RECORDS SUMMARY | 2024-11-27 09:01 | XMS_ITS | Clinical Summary ---
Author Organization [facility] Address [address] [place] [address] Phone Care Team Providers Care Livestock Farm Manager Name Role Phone Jevon Vazquez MD Primary Care Provider [phone] Allergies Active Allergy Reactions Criticality Noted Date [...] LAMINECTOMY; Surgeon: Ivan Bartholomew MD; Location: [facility] OR; Service: Spine Medical History [...] 5.6 % 11/14/2022 2:57 PM EDT PREFERRED iFlipd, [employer] Est. Avg Glucose 148 mg/dL 11/14/2022 2:57 PM EDT [employer] [facility], [facility] Blood VENOUS BLOOD / Unknown Venipuncture / Unknown 11/11/2022 3:46 PM EDT 11/11/2022 3:55 PM EDT Narrative [facility] - 11/14/2022 2:57 [...] Maloney DO CHEMISTRY ORDERABLES Final R esult [facility] Le[employer]ir [facility] [address] [facility] , [address] [place] [id number] * (ABNORMAL) BASIC METABOLIC PANEL (11/11/2022 3:46 [...] recommended by the National Kidney Foundation - [place] [employer] of Nephrology Task Force. Blood VENOUS BLOOD / Unknown Venipuncture / Unknown 11/11/2022 3:46 PM EDT 11/11/2022 3:54 PM EDT us Leona Hanna DO CHEMISTRY ORDERABLES Final Res ult [facility] [address] [place] [address] * DX BONE DENSITY AXIAL SKELETON (07/25/2022 9:14 AM EDT) Anatomical Region Laterality Modality Dexa Scan 07/25/2022 Narrative 07/25/2022 3:45 PM EDT Indication: The patient is a female age 65 or older who requires a bone density assessment. Study was performed on ecoVent 5. Bone Density: Region BMD T-score Z-score [...] Insurance [place]ICARE [place] A [place] [address] [address] MEDICARE SUPPLEMENT MEDICARE [place] PART A AND B Member Subscriber Plan / Payer (Ef fective 2016-Present) Name:Ashly Hernández Member ID:[id number] Relation to Subscriber:Self Name:Ashly Hernández Subscriber ID:[id number] Payer ID:Not on file Group ID:Not on file Type:Not on file Address: [address] MEDICARE SUPPLEMENT MEDICARE [place] PART A & B MEDICARE [place] PART A AND B Member Subscriber Plan / Payer (Ef fective 2016-Present) Name:Ashly Hernández Member ID:[id number] Relation to Subscriber:Self Name:Ashly Hernández Subscriber ID:[id number] Payer ID:Not on file Group ID:Not on file Type:Not on file Address: [address] MEDICARE SUPPLEMENT [employer] MEDICARE [place] PART A AND B [address] MEDICARE SUPPLEMENT Advance Directives For more information, please contact: [phone] * Full Code (Latest Code Status on File) Date Activated Date Inactivated Comments 11/14/2022 6:53 PM 11/16/2022 7:37 PM * Full Code Date Activated Date Inactivated Comments 11/12/2022 5:17 AM 11/14/2022 6:47 PM Care Teams Livestock Farm Manager Relationship Specialty Start Date End Date Jevon Vazquez MD [address] [place] [address] PCP - General Family Medicine 11/10/22
--- OUTSIDE RECORDS SUMMARY | 2024-11-27 09:01 | XMS_ITS | Encounter Summary ---
Author Organization [facility] Address [address] [place] [address] Care Team Providers Care Video Library Assistant Name Role Phone Jevon Vazquez MD Primary Care Provider [phone] Encounter Details Date Type Department Care Team ([facility] Contact Info) Description 11/12/2024 Telephone [facility] Hematology/BMT and Cellular Therapy Program [address] [address] Zonia Hoffman, GANG DRILL OPERATOR 800 [facility] [address] [place] [phone] Social History Tobacco Use Types Packs/Day Years [...] CC Hematology/BMT and Cellular Therapy Program 750 [facility] [place] [address] 11/28/2024 2:30 PM EDT Office Visit [facility] Hematology/BMT and Cellular Therapy Program 750 [facility] [place] [address] Zonia Hoffman, GANG DRILL OPERATOR 800 [facility] [address] [place] [address] 11/28/2024 4:00 PM EDT Appointment [facility] 1 [address] [place] [address] 11/29/2024 1:00 PM EDT Appointment [facility] 1 [address] [place] [address] 11/30/2024 1:00 PM EDT Appointment [facility] 2 [address] [place] [address] 12/01/2024 1:00 PM EDT Appointment [facility] 2 [address] [place] [address] 12/02/2024 2:30 PM EDT Appointment [facility] 2 [address] [place] [address] 12/03/2024 2:00 PM EDT Appointment [facility] 1 [address] [place] [address] 12/04/2024 1:00 PM EDT Appointment [facility] [address] [place] [address] documented as of this encounter Visit Diagnoses Not on filedocumented in this encounter Additional Health Concerns Assessment Noted Time A fall risk assessment has been complete d for the patient 09/30/2024 9:33 AM EDT A Body Mass Index follow-up plan has been documented for the patient 05/28/2024 1:52 PM EST documented as of this encounter Care Teams Video Library Assistant Relationship Specialty Start Date End Date Jevon Vazquez MD [address] [place] [address] #1 #1 [place] [address] PCP - General 03/23/22 documented as of this encounter
--- OUTSIDE RECORDS SUMMARY | 2024-11-27 09:01 | XMS_ITS | Clinical Summary ---
Author Organization [facility] Address [address] 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) 11/12/2024 Travel 11/12/2024 Telephone [facility] Hematology/BMT and Cellular Therapy Program 750 [facility], [address] [place] [address] [place] [address] Zonia Hoffman, SOLUTIONS DEVELOPMENT ANALYST 11/11/2024 Travel 11/10/2024 Travel 11/09/2024 Travel 11/08/2024 Travel 11/08/2024 Refill [facility] Hematology/BMT and Cellular Therapy Program [address] [place] [address] New Mckinney MD 11/07/2024 Travel 10/29/2024 Refill [facility] Hematology/BMT and Cellular Therapy Program [address] [phone] Zonia Hoffman, SOLUTIONS DEVELOPMENT ANALYST 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); Immunosuppressed status (CMS/HCC) 10/28/2024 Telephone [facility] Hematology/BMT and Cellular Therapy Program [address] [phone] Zonia Hoffman, SOLUTIONS DEVELOPMENT ANALYST 10/27/2024 Telephone [facility] Hematology/BMT and Cellular Therapy Program [address] [phone] Zonia Hoffman, SOLUTIONS DEVELOPMENT ANALYST 10/27/2024 Travel 10/26/2024 Travel 10/24/2024 Travel 10/23/2024 Travel 10/22/2024 Travel 10/15/2024 Refill [facility] Hematology/BMT and Cellular Therapy Program [address] [phone] New Mckinney MD 10/14/2024 Refill [facility] Hematology/BMT and Cellular Therapy Program [address] [phone] New Mckinney MD 10/13/2024 Telephone [facility] Hematology/BMT and Cellular Therapy Program [address] [phone] Zonia Hoffman, SOLUTIONS DEVELOPMENT ANALYST 10/13/2024 Travel 10/12/2024 Travel 10/11/2024 Travel 10/09/2024 Travel 10/08/2024 Travel 10/08/2024 Orders Only [facility] Hematology/BMT and Cellular Therapy Program 750 [facility], [address] [place] [phone] 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, taker 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) 10/07/2024 Travel 09/30/2024 9:30 AM EDT Office Visit [facility] Hematology/BMT and Cellular Therapy Program 750 [facility], [address] [place] [phone] Zonia Hoffman APRN 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) 09/30/2024 9:00 AM EDT Clinical Support [facility] Hematology/BMT and Cellular Therapy Program 750 [facility], [address] [place] [phone] Jyoti Kemp 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) 09/30/2024 Telephone [facility] Hematology/BMT and Cellular Therapy Program 750 [facility], [address] [place] [phone] Zoraida Good RN 09/30/2024 Travel 09/29/2024 Travel 09/28/2024 Travel 09/27/2024 Travel 09/26/2024 Travel 09/25/2024 Travel 09/24/2024 Travel 09/23/2024 Travel 09/19/2024 12:00 PM EDT Procedure Visit [facility] Hematology/BMT and Cellular Therapy Program 750 [facility], [address] [place] [phone] Lexi Ferraro, SOLUTIONS DEVELOPMENT ANALYST 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) 09/19/2024 9:30 AM EDT Clinical Support [facility] 800 [facility], [address] [place] [address] 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) 09/19/2024 7:30 AM EDT Clinical Support [facility] Hematology/BMT and Cellular Therapy Program 750 [facility], [address] [place] [phone] 09/19/2024 Telephone [facility] Hematology/BMT and Cellular Therapy Program 750 [facility], [address] [place] [address] [place] [phone] Romana Richmond RN 09/19/2024 Orders Only [facility] Hematology/BMT and Cellular Therapy Program 750 [facility], [address] [place] [phone] 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 RN 09/19/2024 Travel 09/15/2024 Telephone [facility] Hematology/BMT and Cellular Therapy Program 750 [facility], [address] [place] [phone] Zonia Hoffman, SOLUTIONS DEVELOPMENT ANALYST 09/15/2024 Travel 09/14/2024 Travel 09/13/2024 Travel 09/12/2024 Travel 09/12/2024 Refill [facility] Hematology/BMT and Cellular Therapy Program 750 [facility], [address] [place] [phone] New Mckinney MD 09/11/2024 Travel 09/10/2024 Travel 09/01/2024 Telephone [facility] Hematology/BMT and Cellular Therapy Program 750 [facility], [address] [place] [phone] Zonia Hoffman, SOLUTIONS DEVELOPMENT ANALYST 08/31/2024 Travel 08/30/2024 Travel from Last 3 [...] Hematology/BMT and Cellular Therapy Program [address] [phone] 11/28/2024 2:30 PM EDT Office Visit [facility] Hematology/BMT and Cellular Therapy Program [address] [phone] Zonia Hoffman, SOLUTIONS DEVELOPMENT ANALYST 800 [facility] [address] [place] [phone] 11/28/2024 4:00 PM EDT Appointment [facility] 1 [address] [place] [address] 11/29/2024 1:00 PM EDT Appointment [facility] 1 [address] [place] [address] 11/30/2024 1:00 PM EDT Appointment [facility] 2 [address] [place] [address] 12/01/2024 1:00 PM EDT Appointment [facility] 2 [address] [place] [address] 12/02/2024 2:30 PM EDT Appointment [facility] 2 [address] [place] [address] 12/03/2024 2:00 PM EDT Appointment [facility] 1 [address] [place] [address] 12/04/2024 1:00 PM EDT Appointment [facility] [address] [place] [address] Health Maintenance Due Date Last Done Comments [...] UKY-Zoster Vaccines (1 of 2) 05/16/2023 03/21/2023 [id number] Vaccine ( season) 2023 02/18/2021, 07/10/2020, 06/12/2020 [...] this topic Medical Devices Implanted Type Area Appliance Technician Device Identifier Shelf Expiration Date Model / Serial / Lot Port Clearvue Power 8fr - [id number] Implanted:Qty: 1 on 01/21/2024 [facility][id number] / / Procedures Procedure Name Priority Date/Time [...] LAB HEMATOLOGY METHOD 09/30/2024 11:07 AM EDT [facility] RBC Count 1.91(L) 3.90 - 5.20 10*6/uL LAB HEMATOLOGY METHOD 09/30/2024 11:07 AM EDT [facility] HGB 7.7(L) 11.2 - 15.7 g/dL LAB HEMATOLOGY METHOD 09/30/2024 11:07 AM EDT [facility] HCT 22.8(L) 34.0 - 45.0 % LAB HEMATOLOGY METHOD 09/30/2024 11:07 AM EDT [facility] Platelet Count 17(LL) 155 - 369 10*3/uL LAB HEMATOLOGY METHOD 09/30/2024 11:07 AM EDT [facility] MCV 119(H) 79 - 98 fL LAB HEMATOLOGY METHOD 09/30/2024 11:07 AM EDT [facility] MCH 40.3(H) 26.0 - 32.0 pg LAB HEMATOLOGY METHOD 09/30/2024 11:07 AM EDT [facility] MCHC 33.8 30.7 - 35.5 g/dL LAB HEMATOLOGY METHOD 09/30/2024 11:07 AM EDT [facility] RDW 18.7(H) 11.5 - 14.5 % LAB HEMATOLOGY METHOD 09/30/2024 11:07 AM EDT [facility] MPV 11.1 8.8 - 12.5 fL LAB HEMATOLOGY METHOD 09/30/2024 11:07 AM EDT [facility] nRBC 0.0 <=0.0 per 100 WBCs LAB HEMATOLOGY METHOD 09/30/2024 11:07 AM EDT [facility] Differential Type Automated LAB HEMATOLOGY METHOD 09/30/2024 11:07 AM EDT [facility] Neutrophils % 65 % LAB HEMATOLOGY METHOD 09/30/2024 11:07 AM EDT [facility] Lymphocytes % 26 % LAB HEMATOLOGY METHOD 09/30/2024 11:07 AM EDT [facility] Monocytes % 7 % LAB HEMATOLOGY METHOD 09/30/2024 11:07 AM EDT [facility] Eosinophils % 1 % LAB HEMATOLOGY METHOD 09/30/2024 11:07 AM EDT [facility] Basophils % 1 % LAB HEMATOLOGY METHOD 09/30/2024 11:07 AM EDT [facility] Immature Granulocytes % 0 % LAB HEMATOLOGY METHOD 09/30/2024 11:07 AM EDT [facility] Neutrophils Absolute 2.17 1.60 - 6.10 10*3/uL LAB HEMATOLOGY METHOD 09/30/2024 11:07 AM EDT [facility] Lymphocytes Absolute 0.87(L) 1.20 - 3.90 10*3/uL LAB HEMATOLOGY METHOD 09/30/2024 11:07 AM EDT [facility] Monocytes Absolute 0.24(L) 0.30 - 0.90 10*3/uL LAB HEMATOLOGY METHOD 09/30/2024 11:07 AM EDT [facility] Eosinophils Absolute 0.03 0.00 - 0.50 10*3/uL LAB HEMATOLOGY METHOD 09/30/2024 11:07 AM EDT [facility] Basophils Absolute 0.02 0.00 - 0.10 10*3/uL LAB HEMATOLOGY METHOD 09/30/2024 11:07 AM EDT [facility] Immature Granulocytes Absolute 0.01 0.00 - 0.06 10*3/uL LAB HEMATOLOGY METHOD 09/30/2024 11:07 AM EDT [facility] Blood Venous blood specimen / Unknown (Port) Long-term Catheter / Unknown 09/30/2024 9:11 AM EDT 09/30/2024 9:34 AM EDT Narrative [facility] - 09/30/2024 11:07 AM EDT Therapeutic decision making should be based on absolute values, rather than percentages. us Zonia Hoffman SOLUTIONS DEVELOPMENT ANALYST LAB BLOOD ORDERABLES Final Res ult [facility] [address] [place] [address] * (ABNORMAL) Comprehensive Metabolic Panel, Plasma (09/30/2024 9:11 AM EDT) Glucose, Plasma 135(H) 74 - 99 mg/dL 09/30/2024 10:20 AM EDT [facility] BUN, Plasma 21 8 - 23 mg/dL 09/30/2024 10:20 AM EDT [facility] Creatinine, Plasma 1.00 0.60 - 1.10 mg/dL 09/30/2024 10:20 AM EDT [facility] BUN/Creatinine Ratio 21 09/30/2024 10:20 AM EDT [facility] Sodium, Plasma 137 136 - 145 mmol/L 09/30/2024 10:20 AM EDT [facility] Potassium, Plasma 3.8 3.6 - 4.9 mmol/L 09/30/2024 10:20 AM EDT [facility] Chloride, Plasma 107 97 - 107 mmol/L 09/30/2024 10:20 AM EDT [facility] CO2, Plasma 22 22 - 29 mmol/L 09/30/2024 10:20 AM EDT [facility] Anion Gap 8 6 - 16 mmol/L 09/30/2024 10:20 AM EDT [facility] Total Calcium, Plasma 9.8 8.9 - 10.2 mg/dL 09/30/2024 10:20 AM EDT [facility] Total Protein 5.9(L) 6.3 - 7.9 g/dL 09/30/2024 10:20 AM EDT [facility] Albumin, Plasma 3.8 3.5 - 5.2 g/dL 09/30/2024 10:20 AM EDT [facility] AST, Plasma 28 10 - 35 U/L 09/30/2024 10:20 AM EDT [facility] ALT, Plasma 14 10 - 35 U/L 09/30/2024 10:20 AM EDT [facility] Alkaline Phosphatase, Plasma 34(L) 46 - 142 U/L 09/30/2024 10:20 AM EDT [facility] Total Bilirubin, Plasma 0.3 0.2 - 1.1 mg/dL 09/30/2024 10:20 AM EDT [facility] eGFRcr 59.6 mL/min/1.7 3m*2 09/30/2024 10:20 AM EDT [facility] Comment:Reported eGFRcr in m L/min/1.73m2 is based the CKD-EPI 2020 equation that does not use a race coefficient. Blood Venous blood specimen / Unknown (Port) Long-term Catheter / Unknown 09/30/2024 9:11 AM EDT 09/30/2024 9:50 AM EDT us Zonia Hoffman APRN LAB BLOOD ORDERABLES Final Res ult [facility] [address] [place] [address] * BIOPSY BONE MARROW (09/19/2024 12:00 PM [...] to surronding structures. Alternatives discussed: Delayed treatment [place] protocol: Procedure explained and questions answered to [...] at the site and an 11 gauge Genomerashidi needle was inserted into the right posterior [...] ORDERABLES Final Re sult [facility] [address] [place] [address] * Transfuse platelets, Irradiated (09/19/2024 10:02 AM EDT) Lexi Ferraro APRN BLOOD TRANSFUSION ORDERABL ES Final Result * Prepare Leukocyte Reduced Platelets (09/19/2024 9:08 AM EDT) Product Code [id number] BLOO D BANK Dispense Status Transfused BLOOD BANK Blood Expiration Date [id number] BLOOD BANK Unit Number [id number] B LOOD BANK Product Blood Type 6200 BLOOD BANK Blood Type A+ BLOOD BANK us Provider Not In System BLOOD BANK PRODUCT ORD ERABLES Final Result BLOOD BANK [address] [place] [address], * Myeloid Focused Panel, 50 gene (09/19/2024 7:29 AM EDT) Interpretation The following two (2) genes, TP53 and DNMT3A, with persistent variants have been detected in this bone marrow specimen. The variant, p.[id number], in TP53 gene and the variant, p.[id number], in the RUNX 1 gene are not detectable at current cutoff and coverage established in this lab. Gene: TP53 Mutation: c.814G>A; p.[id number] Allele Frequency (%): 37% (45% Dec 2023) ID: [id number] Gene: DNMT3A Mutation: c.1522delC; p.[id number] 3 Allele Frequency (%): 36% (48% Dec 2023) Additional Details on Mutation Identified: Gene Transcript Genome Chrom Coordinate RefVar DNMT3A [id number] Hg19 2 [id number] delC TP53 [id number] Hg19 17 [id number] G>A 09/29/2024 4:05 PM EDT [facility] [...] malignancies. Samples are then sequenced on the [employer] 2000 ([employer] [place]). A custom bioinformatics pipeline aligns [...] hematologic malignancies. 09/29/2024 4:05 PM EDT [facility] Disclaimer This test was developed [...] laboratory testing. 09/29/2024 4:05 PM EDT [facility] Pathologist Signature Reviewed by: Corey Tejada 09/29/2024 4:05 PM EDT [facility] Bone Marrow Specimen from bone marrow obtained by aspiration / Unknown Non-blood Collection / Unknown 09/19/2024 7:29 AM EDT 09/19/2024 12:03 PM EDT us New Mckinney MD LAB MOLECULAR DIAGNOSTICS ORD ERABLES Final Result [facility] [address] [place] [address], * Chromosome Karyotype, Oncology (09/19/2024 7:29 AM EDT) Specimen Type Bone Marrow 09/24/2024 2:[address] [facility] Clinical Indication Myelodysplastic Syndrome 09/24/2024 2:37 PM EDT [facility] Specimen Adequacy Adequate 025 2:37 PM EDT [facility] Chromosome Analysis Result Giemsa-banded metaphase cells from unstimulated bone marrow cultures showed a 46,XX[20] chromosome pattern. 09/24/2024 2:37 PM EDT [facility] Interpretation Normal female chromosome analysis. No clonal abnormalities were detected at current resolution. Clinical correlation is recommended. # cells counted = 20 # cells analyzed = 20 # cells karyotyped = 2 Band resolution: 450-525 09/24/2024 2:37 PM EDT [facility] Pathologist Signature Reviewed by: Corey Tejada 09/24/2024 2:37 PM EDT [facility] Bone Marrow Non-blood Collection / Unknown 09/19/2024 7:29 AM EDT 09/19/2024 12:35 PM EDT us New Mckinney MD LAB CYTOGENETICS ORDERABLES F inal Result [facility] [address] [place] [address] * Leukemia/Lymphoma - Immunophenotyping by Flow Cytometry (09/19/2024 7:29 AM EDT) Clinical Indication AML 09/22/2024 10:29 AM EDT [facility] Flow Cytometry Interpretation A. BONE MARROW FOR FLOW CYTOMETRY: - MIXED MARROW ELEMENTS WITH NO EVIDENCE OF INCREASED BLASTS OR ABNORMAL LYMPHOID POPULATIONS, SEE COMMENT. 09/22/2024 10:29 AM EDT [facility] Comments CD45/side scatter analysis [...] surface light chains 09/22/2024 10:29 AM EDT [facility] Disclaimer This test was [...] on the report. 09/22/2024 10:29 AM EDT [facility] Pathologist Signature Reviewed by: Lisandra Epstein MD 09/22/2024 10:29 AM EDT [facility] MRD Indicated Test Not Indicated 12/2024 10:29 AM EDT [facility] Bone Marrow Specimen from bone marrow obtained by aspiration / Unknown Non-blood Collection / Unknown 09/19/2024 7:29 AM EDT 09/19/2024 12:13 PM EDT New Mckinney MD LAB FLOW CYTOMETRY ORDERABLES Final Result [facility] [address] [place] [address] * Bone marrow exam (09/19/2024 7:29 AM EDT) Case Report Bone Marrow Case: [id number] Authorizing Provider: New Mckinney MD Collected: 09/19/2024 0729 Ordering Location: [facility] Hematology/BMT and Received: 09/19/2024 1216 Cellular Therapy Program Pathologist: Lisandra Epstein MD Specimens: A) - Bone Marrow Aspirate, right B) - Bone Marrow Biopsy, right C) - Peripheral Blood for Bone Marrow 3:15 PM EDT [facility] Cytogenetics Report, Addendum Chromosome Analysis Result Giemsa-banded metaphase cells from unstimulated bone marrow cultures showed a 46,XX[20] chromosome pattern. Interpretation Normal female chromosome analysis. No clonal abnormalities were detected at current resolution. Clinical correlation is recommended. 3:15 PM EDT [facility] Addendum electronically signed by Lisandra Epstein MD on 09/24/2024 at 1630 EDT Addendum Interpretation The following two (2) genes, TP53 and DNMT3A, with persistent variants have been detected in this bone marrow specimen. The variant, p.[id number], in TP53 gene and the variant, p.[id number], in the RUNX 1 gene are not detectable at current cutoff and coverage established in this lab. Gene: TP53 Mutation: c.814G>A; p.Ywr333Vfr Allele Frequency (%): 37% (45% Dec 2023) ID: [id number] Gene: DNMT3A Mutation: c.1522delC; p.[id number] Allele Frequency (%): 36% (48% Dec 2023) Additional Details on Mutation Identified: 3:15 PM EDT [facility] Addendum electronically signed by Lisandra Epstein MD on 09/30/2024 at 1515 EDT Final Diagnosis PERIPHERAL BLOOD AND BONE MARROW, RIGHT POSTERIOR ILIAC CREST, (ASPIRATE SMEAR, AND CORE BIOPSY): - HYPOCELLULAR BONE MARROW WITH MARKEDLY DECREASED MEGAKARYOCYTES; NO SIGNIFICANT DYSPOIESIS OR INCREASE IN BLASTS. 3:15 PM EDT [facility] at 1453 EDT Clinical Information AML 09/14 3:15 PM EDT [facility] CBC and Differential PERIPHERAL [...] blasts are not seen. 3:15 PM EDT [facility] Bone Marrow Differential BONE MARROW DIFFERENTIAL: 200 cells Normal Patient Neutrophils 15-50 34 Metamyelocytes 4-19 3 Myelocytes 1-18 10 Promyelocytes 1-8 1 Blasts 0-2 1 Monocytes 0-5 4 Erythroid 16-38 22 Lymphocytes 3-24 13 Eosinophils 0-6 8 Basophils 0-2 0 Plasma cells 0-4 4 Other 3:15 PM EDT [facility] Bone Marrow Aspirate and [...] are unremarkable. 3:[address] [facility] Special and Immunohistochemical Stains Special Stain: A1-1 Vazquez-Giemsa A1-2 Vazquez-Giemsa A1-3 Vazquez-Giemsa C1-1 Vazquez-Giemsa IHC: B1-2 CD34 All controls show appropriate reactivity. All immunohistochemis try, in situ hybridization, and histochemical tests were developed by and are performed at the [facility], [address] [place] [address]. All tests reported here, except those addressing [...] negativity on decalcified specimens. 3:15 PM EDT [facility] Flow Cytometry Interpretation MIXED MARROW ELEMENTS WITH NO EVIDENCE OF INCREASED BLASTS OR ABNORMAL LYMPHOID POPULATIONS ([id number]). 3:15 PM EDT [facility] CYTOGENETICS/MOLECULA R INTERPRETATION Correlation with cytogenetic/molec ular analysis is suggested. 3:15 PM EDT [facility] Gross Description B. RIGHT A single specimen is received in formalin labeled bone marrow biopsy right posterior iliac crest and consists of 2 piece(s) of red/white tissue measuring 2.1/0.3 cm in length 0.2 cm in diameter. The specimen is submitted in to Histology for decalcification and routine processing. Cold Time: <1m 3:15 PM EDT [facility] Note: A resident was involved in the service. I attest I examined the relevant preparations for the specimens and confirmed the diagnosis or interpretation. 3:15 PM EDT [facility] Bone Marrow Peripheral blood [...] PATHOLOGY ORDERABLES Edit ed Result - Final [facility] [address] [place] [address] * Hepatitis C Antibody w/Reflex to HCV Quant PCR (01/07/2024 8:42 AM EDT) Hepatitis C Antibody Negative Negative 01/07/2024 10:13 AM EDT [facility] Blood Venous blood specimen / Unknown Venipuncture / Unknown 01/07/2024 8:42 AM EDT 01/07/2024 9:25 AM EDT us New Mckinney MD LAB BLOOD ORDERABLES Final Re sult [facility] [address] [place] [address] from Last 3 Months or Most Recently Relevant to Health Maintenance Insurance MEDICARE [facility] Care Teams Nuclear Radiation Engineer Relationship Specialty Start Date End Date Jevon Vazquez MD [address] [place] [address] #1 #1 [place] [id number] PCP - General 03/23/22
--- OUTSIDE RECORDS SUMMARY | 2024-11-27 09:01 | XMS_ITS | Encounter Summary ---
Author Organization Healthcare Address [address] [place] [address] Care Team Providers Care Insecticide Mixer Name Role Phone Jevon Vazquez MD Primary Care Provider [phone] Encounter Details Date Type Department Care Team [...] Hematology/BMT and Cellular Therapy Program [address] [address] 11/28/2024 2:30 PM EDT Office Visit [facility] Hematology/BMT and Cellular Therapy Program [address] [phone] Zonia Hoffman, DRUM SANDER OFFBEARER 800 [facility] [address] [place] [phone] 11/28/2024 4:00 PM EDT Appointment [facility] 1 [address] [place] [address] 11/29/2024 1:00 PM EDT Appointment [facility] 1 [address] [place] [address] 11/30/2024 1:00 PM EDT Appointment [facility] 2 [address] [place] [address] 12/01/2024 1:00 PM EDT Appointment [facility] 2 [address] [place] [address] 12/02/2024 2:30 PM EDT Appointment [facility] 2 [address] [place] [address] 12/03/2024 2:00 PM EDT Appointment [facility] 1 [address] [place] [address] 12/04/2024 1:00 PM EDT Appointment [facility] [address] [place] [address] documented as of this encounter Visit Diagnoses Not on filedocumented in this encounter Additional Health Concerns Assessment Noted Time A fall risk assessment has been complete d for the patient 09/30/2024 9:33 AM EDT A Body Mass Index follow-up plan has been documented for the patient 05/28/2024 1:52 PM EST documented as of this encounter Care Teams Insecticide Mixer Relationship Specialty Start Date End Date Jevon Vazquez MD [address] [place] [address] #1 [address] [place] [address] PCP - General 03/23/22 documented as of this encounter
--- OUTSIDE RECORDS SUMMARY | 2024-11-27 09:01 | XMS_ITS | Encounter Summary ---
Author Organization Healthcare Address [address] [place] [address] Care Team Providers Care Wheel Lacer And Truer Name Role Phone Jevon Vazquez MD Primary Care Provider [phone] Encounter Details Date Type Department Care Team [...] Hematology/BMT and Cellular Therapy Program [address] [address] 11/28/2024 2:30 PM EDT Office Visit [facility] Hematology/BMT and Cellular Therapy Program [address] [address] Zonia Hoffman, ASSEMBLER MOTOR VEHICLE 800 [facility] [address] [place] [address] 11/28/2024 4:00 PM EDT Appointment [facility] 1 [address] [place] [address] 11/29/2024 1:00 PM EDT Appointment [facility] 1 [address] [place] [address] 11/30/2024 1:00 PM EDT Appointment [facility] 2 [address] [place] [address] 12/01/2024 1:00 PM EDT Appointment [facility] 2 [address] [place] [address] 12/02/2024 2:30 PM EDT Appointment [facility] 2 [address] [place] [address] 12/03/2024 2:00 PM EDT Appointment [facility] 1 [address] [place] [address] 12/04/2024 1:00 PM EDT Appointment [facility] 800 [place] [address] documented as of this encounter Visit Diagnoses Not on filedocumented in this encounter Additional Health Concerns Assessment Noted Time A fall risk assessment has been complete d for the patient 09/30/2024 9:33 AM EDT A Body Mass Index follow-up plan has been documented for the patient 05/28/2024 1:52 PM EST documented as of this encounter Care Teams Wheel Lacer And Truer Relationship Specialty Start Date End Date Jevon Vazquez MD [address] [place] [address] #1 [address]1 [place] [address] PCP - General 03/23/22 documented as of this encounter
--- OUTSIDE RECORDS SUMMARY | 2024-11-27 09:01 | XMS_ITS | Encounter Summary ---
Author Organization Healthcare Address [address] [place] [address] Care Team Providers Care Brush Washer Name Role Phone Jevon Vazquez MD Primary Care Provider [phone] Encounter Details Date Type Department Care Team [...] Hematology/BMT and Cellular Therapy Program [address] [address] 11/28/2024 2:30 PM EDT Office Visit [facility] Hematology/BMT and Cellular Therapy Program [address] [address] Zonia Hoffman, HEAD ANIMAL TRAINER 800 [facility] [address] [place] [address] 11/28/2024 4:00 PM EDT Appointment [facility] 1 [address] [place] [address] 11/29/2024 1:00 PM EDT Appointment [facility] 1 [address] [place] [address] 11/30/2024 1:00 PM EDT Appointment [facility] 2 [address] [place] [address] 12/01/2024 1:00 PM EDT Appointment [facility] 2 [address] [place] [address] 12/02/2024 2:30 PM EDT Appointment [facility] 2 [address] [place] [address] 12/03/2024 2:00 PM EDT Appointment [facility] 1 [address] [place] [address] 12/04/2024 1:00 PM EDT Appointment [facility] 800 [place] [address] documented as of this encounter Visit Diagnoses Not on filedocumented in this encounter Additional Health Concerns Assessment Noted Time A fall risk assessment has been complete d for the patient 09/19/2024 8:38 AM EDT A Body Mass Index follow-up plan has been documented for the patient 05/28/2024 1:52 PM EST documented as of this encounter Care Teams Brush Washer Relationship Specialty Start Date End Date Jevon Vazquez MD [address] [place] [address] #1 #1 [place] [address] PCP - General 03/23/22 documented as of this encounter
--- OUTSIDE RECORDS SUMMARY | 2024-11-27 09:01 | XMS_ITS | Encounter Summary ---
Author Organization Healthcare Address [address] [place] [address] Care Team Providers Care Assembler For Puller Over Hand Name Role Phone Jevon Vazquez MD Primary Care Provider [phone] Encounter Details Date Type Department Care Team [...] Hematology/BMT and Cellular Therapy Program [address] [address] 11/28/2024 2:30 PM EDT Office Visit [facility] Hematology/BMT and Cellular Therapy Program [address] [address] Zonia Hoffman, PAINTING SUPERVISOR 800 [facility] [address] [place] [address] 11/28/2024 4:00 PM EDT Appointment [facility] 1 [address] [place] [address] 11/29/2024 1:00 PM EDT Appointment [facility] 1 [address] [place] [address] 11/30/2024 1:00 PM EDT Appointment [facility] 2 [address] [place] [address] 12/01/2024 1:00 PM EDT Appointment [facility] 2 [address] [place] [address] 12/02/2024 2:30 PM EDT Appointment [facility] 2 [address] [place] [address] 12/03/2024 2:00 PM EDT Appointment [facility] 1 [address] [place] [address] 12/04/2024 1:00 PM EDT Appointment [facility] 800 [place] [address] documented as of this encounter Visit Diagnoses Not on filedocumented in this encounter Additional Health Concerns Assessment Noted Time A fall risk assessment has been complete d for the patient 09/30/2024 9:33 AM EDT A Body Mass Index follow-up plan has been documented for the patient 05/28/2024 1:52 PM EST documented as of this encounter Care Teams Assembler For Puller Over Hand Relationship Specialty Start Date End Date Jevon Vazquez MD [address] [place] [address] #1 #1 [place] [address] PCP - General 03/23/22 documented as of this encounter
--- OUTSIDE RECORDS SUMMARY | 2024-11-27 09:01 | XMS_ITS | Encounter Summary ---
Author Organization Healthcare Address [address] [place] [address] Care Team Providers Care Blind Escort Name Role Phone Jevon Vazquez MD Primary Care Provider [phone] Encounter Details Date Type Department Care Team [...] Hematology/BMT and Cellular Therapy Program [address] [address] 11/28/2024 2:30 PM EDT Office Visit [facility] Hematology/BMT and Cellular Therapy Program [address] [address] Zonia Hoffman, GAME TECHNICIAN 800 [facility] [address] [place] [address] 11/28/2024 4:00 PM EDT Appointment [facility] 1 [address] [place] [address] 11/29/2024 1:00 PM EDT Appointment [facility] 1 [address] [place] [address] 11/30/2024 1:00 PM EDT Appointment [facility] 2 [address] [place] [address] 12/01/2024 1:00 PM EDT Appointment [facility] 2 [address] [place] [address] 12/02/2024 2:30 PM EDT Appointment [facility] 2 [address] [place] [address] 12/03/2024 2:00 PM EDT Appointment [facility] 1 [address] [place] [address] 12/04/2024 1:00 PM EDT Appointment [facility] 800 [place] [address] documented as of this encounter Visit Diagnoses Not on filedocumented in this encounter Additional Health Concerns Assessment Noted Time A fall risk assessment has been complete d for the patient 09/30/2024 9:33 AM EDT A Body Mass Index follow-up plan has been documented for the patient 05/28/2024 1:52 PM EST documented as of this encounter Care Teams Blind Escort Relationship Specialty Start Date End Date Jevon Vazquez MD [address] [place] [address] #1 #1 [place] [address] PCP - General 03/23/22 documented as of this encounter
--- OUTSIDE RECORDS SUMMARY | 2024-11-27 09:01 | XMS_ITS | Encounter Summary ---
Author Organization [facility] Address [address] [place] [address] Care Team Providers Care Bridges Supervisor Name Role Phone Jevon Vazquez MD Primary Care Provider [phone] Encounter Details Date Type Department Care Team ([facility] Contact Info) Description 11/13/2024 Orders Only [facility] Hematology/BMT and Cellular Therapy Program [address] [address] 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, RN [facility] Acute myeloid leukemia not [...] Hematology/BMT and Cellular Therapy Program [address] [address] 11/28/2024 2:30 PM EDT Office Visit [facility] Hematology/BMT and Cellular Therapy Program [address] [address] Zonia Hoffman, GROUP TEACHER 800 [facility] [address] [place] [address] 11/28/2024 4:00 PM EDT Appointment [facility] 1 [address] [place] [address] 11/29/2024 1:00 PM EDT Appointment [facility] 1 [address] [place] [address] 11/30/2024 1:00 PM EDT Appointment [facility] 2 [address] [place] [address] 12/01/2024 1:00 PM EDT Appointment [facility] 2 [address] [place] [address] 12/02/2024 2:30 PM EDT Appointment [facility] 2 [address] [place] [address] 12/03/2024 2:00 PM EDT Appointment [facility] 1 [address] [place] [address] 12/04/2024 1:00 PM EDT Appointment [facility] [address] [place] [address] Scheduled Orders Name Type Priority Associated Diagnoses [...] documented as of this encounter Care Teams Bridges Supervisor Relationship Specialty Start Date End Date Jevon Vazquez MD [address] [place] [address] #1 #1 [place] [address] PCP - General 03/23/22 documented as of this encounter
--- OUTSIDE RECORDS SUMMARY | 2024-11-27 09:01 | XMS_ITS | Encounter Summary ---
Author Organization Healthcare Address [address] [place] [address] Care Team Providers Care Rx Specialist Name Role Phone Jevon Vazquez MD Primary Care Provider [phone] Encounter Details Date Type Department Care Team [...] Hematology/BMT and Cellular Therapy Program [address] [address] 11/28/2024 2:30 PM EDT Office Visit [facility] Hematology/BMT and Cellular Therapy Program [address] [address] Zonia Hoffman, NEWSPAPER MANAGER 800 [facility] [address] [place] [address] 11/28/2024 4:00 PM EDT Appointment [facility] 1 [address] [place] [address] 11/29/2024 1:00 PM EDT Appointment [facility] 1 [address] [place] [address] 11/30/2024 1:00 PM EDT Appointment [facility] 2 [address] [place] [address] 12/01/2024 1:00 PM EDT Appointment [facility] 2 [address] [place] [address] 12/02/2024 2:30 PM EDT Appointment [facility] 2 [address] [place] [address] 12/03/2024 2:00 PM EDT Appointment [facility] 1 [address] [place] [address] 12/04/2024 1:00 PM EDT Appointment [facility] 800 [place] [address] documented as of this encounter Visit Diagnoses Not on filedocumented in this encounter Additional Health Concerns Assessment Noted Time A fall risk assessment has been complete d for the patient 09/30/2024 9:33 AM EDT A Body Mass Index follow-up plan has been documented for the patient 05/28/2024 1:52 PM EST documented as of this encounter Care Teams Rx Specialist Relationship Specialty Start Date End Date Jevon Vazquez MD [address] [place] [address] #1 [address]1 [place] [address] PCP - General 03/23/22 documented as of this encounter
--- OUTSIDE RECORDS SUMMARY | 2024-11-27 09:01 | XMS_ITS | Encounter Summary ---
Author Organization Healthcare Address [address] [place] [address] Care Team Providers Care Fruit And Vegetable Inspector Name Role Phone Jevon Vazquez MD Primary Care Provider [phone] Encounter Details Date Type Department Care Team [...] Hematology/BMT and Cellular Therapy Program [address] [address] 11/28/2024 2:30 PM EDT Office Visit [facility] Hematology/BMT and Cellular Therapy Program [address] [address] Zonia Hoffman, APPETIZER PACKER 800 [facility] [address] [place] [address] 11/28/2024 4:00 PM EDT Appointment [facility] 1 [address] [place] [address] 11/29/2024 1:00 PM EDT Appointment [facility] 1 [address] [place] [address] 11/30/2024 1:00 PM EDT Appointment [facility] 2 [address] [place] [address] 12/01/2024 1:00 PM EDT Appointment [facility] 2 [address] [place] [address] 12/02/2024 2:30 PM EDT Appointment [facility] 2 [address] [place] [address] 12/03/2024 2:00 PM EDT Appointment [facility] 1 [address] [place] [address] 12/04/2024 1:00 PM EDT Appointment [facility] In[facility] 800 [place] [address] documented as of this encounter Visit Diagnoses Not on filedocumented in this encounter Additional Health Concerns Assessment Noted Time A fall risk assessment has been complete d for the patient 09/30/2024 9:33 AM EDT A Body Mass Index follow-up plan has been documented for the patient 05/28/2024 1:52 PM EST documented as of this encounter Care Teams Fruit And Vegetable Inspector Relationship Specialty Start Date End Date Jevon Vazquez MD [address] [place] [address] #1 [address]1 [place] [address] PCP - General 03/23/22 documented as of this encounter
--- OUTSIDE RECORDS SUMMARY | 2024-11-27 09:01 | XMS_ITS | Encounter Summary ---
Author Organization [facility] Address [address] [place] [address] Care Team Providers Care Adjunct History Instructor Name Role Phone Jevon Vazquez MD Primary Care Provider [phone] Encounter Details Date Type Department Care Team ([facility] Contact Info) Description 10/08/2024 Orders Only [facility] Hematology/BMT and Cellular Therapy Program [address] [address] 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, RN [facility] Acute myeloid [...] Encounters Date Type Department Care Team ([facility] Contact Info) Description 11/28/2024 2:00 PM EDT Clinical Support [facility] Hematology/BMT and Cellular Therapy Program [address] [address] 11/28/2024 2:30 PM EDT Office Visit [facility] Hematology/BMT and Cellular Therapy Program [address] [address] Zonia Hoffman, MUFF WINDER 800 [facility] [address] [place] [address] 11/28/2024 4:00 PM EDT Appointment [facility] 1 [address] [place] [address] 11/29/2024 1:00 PM EDT Appointment [facility] 1 [address] [place] [address] 11/30/2024 1:00 PM EDT Appointment [facility] 2 [address] [place] [address] 12/01/2024 1:00 PM EDT Appointment [facility] 2 [address] [place] [address] 12/02/2024 2:30 PM EDT Appointment [facility] 2 [address] [place] [address] 12/03/2024 2:00 PM EDT Appointment [facility] 1 [address] [place] [address] 12/04/2024 1:00 PM EDT Appointment [facility] Infusion 800 [place] [address] Scheduled Orders Name Type Priority Associated Diagnoses [...] documented as of this encounter Care Teams Adjunct History Instructor Relationship Specialty Start Date End Date Jevon Vazquez MD [address] [place] [address] #1 #1 [place] [address] PCP - General 03/23/22 documented as of this encounter
[2024-11-27] MEDS: SODIUM CHLORIDE 0.9% 10ML FLUSH SYRINGE 10 ML IV (09:05)
[2024-11-27 09:14] LABS: Hematocrit 26.8 % (37.0-47.0); Hemoglobin 9.1 g/dL (12.2-16.2); Immature Granulocytes % 0 %; Mean Corpuscular HGB Conc 34.0 g/dL (31.8-35.4); Mean Corpuscular Hemoglobin 33.2 pg (27.0-31.2); Mean Corpuscular Volume 97.8 fl (81-99); Nucleated Red Blood Cells % 0 %; Red Blood Count 2.74 M/mm3 (4.20-5.40); White Blood Count 2.0 K/mm3 (4.8-10.8)
[2024-11-27 09:16] LABS: Platelet Count 11 K/mm3 (142-424)
[2024-11-27 09:21] LABS: Albumin Level 3.5 g/dl (3.5-5.0); Chloride 104 mmol/L (98-107); Potassium 3.6 mmoL/L (3.5-5.1); Sodium 137 mmol/L (136-145)
[2024-11-27 09:24] LABS: Alanine Aminotransferase 14 U/L (12-78); Albumin/Globulin Ratio 1.6 (1.1-1.8); Alkaline Phosphatase 47 U/L (38-126); Anion Gap 12.6 mEq/L (5-15); Aspartate Amino Transferase 36 U/L (14-36); Bilirubin,Total 0.4 mg/dl (0.2-1.3); Blood Urea Nitrogen 24 mg/dl (7-17); Carbon Dioxide 24 mmol/L (22.0-30.0); Creatinine Clearance Estimated 45 mL/min (50-200); Creatinine,Serum 1.00 mg/dl (0.52-1.04); Estimated Glomerular Filt Rate 54 ml/min (>60); GFR (African American) 66 ML/MIN (>60); Globulin 2.2 g/dL (1.3-3.2); Total Protein,Serum 5.7 g/dl (6.3-8.2)
[2024-11-27 09:25] LABS: Calcium 9.2 mg/dl (8.4-10.2); Glucose 138 mg/dl (74-100)
[2024-11-27 09:57] LABS: Anisocytosis 1+; Macrocytosis 1+; Total Cells Counted 25
== END 2024-11-27 09:25 | disposition home or self-care (01) ==
LOC: INF 08:55
PROVIDERS: PCP Family Medicine; Visit Provider Internal Medicine Medical Oncology
DX: C92.00 Acute myeloblastic leukemia, not having achieved remission (principal)
CPT/HCPCS: 36591; 80053; 85007; 85025; 85027; J1642

== ENCOUNTER 2024-12-01 08:54 | Outpatient (RCR) | payer MEDICARE, BC, SELFPAY ==
[2024-12-01] VITALS (7 sets, daily range): BP systolic 115–155; BP diastolic 38–76; PULSE 73–79; RESP 18; TEMP 36.2–36.6; O2SAT 99
[2024-12-01 09:11] LABS: Hematocrit 23.7 % (37.0-47.0); Hemoglobin 8.2 g/dL (12.2-16.2); Immature Granulocytes % 0.5 %; Mean Corpuscular HGB Conc 34.6 g/dL (31.8-35.4); Mean Corpuscular Hemoglobin 34.5 pg (27.0-31.2); Mean Corpuscular Volume 99.6 fl (81-99); Nucleated Red Blood Cells % 0 %; Red Blood Count 2.38 M/mm3 (4.20-5.40); White Blood Count 2.0 K/mm3 (4.8-10.8)
[2024-12-01 09:17] LABS: Platelet Count 10 K/mm3 (142-424)
[2024-12-01 09:20] LABS: Albumin Level 3.4 g/dl (3.5-5.0); Chloride 109 mmol/L (98-107); Sodium 137 mmol/L (136-145)
[2024-12-01 09:21] LABS: Potassium 3.7 mmoL/L (3.5-5.1)
[2024-12-01 09:23] LABS: Alanine Aminotransferase 13 U/L (12-78); Albumin/Globulin Ratio 1.6 (1.1-1.8); Alkaline Phosphatase 44 U/L (38-126); Anion Gap 8.7 mEq/L (5-15); Aspartate Amino Transferase 38 U/L (14-36); Bilirubin,Total 0.5 mg/dl (0.2-1.3); Blood Urea Nitrogen 30 mg/dl (7-17); Carbon Dioxide 23 mmol/L (22.0-30.0); Creatinine,Serum 1.10 mg/dl (0.52-1.04); Estimated Glomerular Filt Rate 49 ml/min (>60); GFR (African American) 59 ML/MIN (>60); Globulin 2.1 g/dL (1.3-3.2); Glucose 145 mg/dl (74-100); Total Protein,Serum 5.5 g/dl (6.3-8.2)
[2024-12-01 09:24] LABS: Calcium 9.4 mg/dl (8.4-10.2)
--- NOTE | 2024-12-01 09:25 | PC.NURSE ---
0925-, birthing nurse witnessed type and cross being collected per gee murillo from right chest pac
[2024-12-01 10:06] LABS: RBC Morphology Normal; Total Cells Counted 50
[2024-12-01] MEDS: 0.9 % SODIUM CHLORIDE 250 ML 25 ML IV (12:10)
[2024-12-01] MEDS: SODIUM CHLORIDE 0.9% 10ML FLUSH SYRINGE 10 ML IV (13:06)
== END 2024-12-01 13:10 | disposition admitted as inpatient to this hospital (09) ==
LOC: INF 08:54
PROVIDERS: PCP Family Medicine; Visit Provider Internal Medicine Medical Oncology
DX: C92.00 Acute myeloblastic leukemia, not having achieved remission (principal)
CPT/HCPCS: 36430; 80053; 85007; 85025; 86900; 86901; J1642; J7050; P9034

== ENCOUNTER 2024-12-04 08:55 | Outpatient (CLI) | payer MEDICARE, BC, SELFPAY ==
[2024-12-04] VITALS (10 sets, daily range): BP systolic 105–136; BP diastolic 44–69; PULSE 67–76; RESP 18–20; TEMP 36.4–36.7; O2SAT 98–99; BMI 22.1
[2024-12-04 09:10] LABS: Hematocrit 22.6 % (37.0-47.0); Hemoglobin 7.8 g/dL (12.2-16.2); Immature Granulocytes % 0 %; Mean Corpuscular HGB Conc 34.5 g/dL (31.8-35.4); Mean Corpuscular Hemoglobin 34.7 pg (27.0-31.2); Mean Corpuscular Volume 100.4 fl (81-99); Nucleated Red Blood Cells % 0 %; Red Blood Count 2.25 M/mm3 (4.20-5.40)
[2024-12-04 09:13] LABS: Platelet Count 27 K/mm3 (142-424); White Blood Count 1.9 K/mm3 (4.8-10.8)
--- OUTSIDE RECORDS SUMMARY | 2024-12-04 09:18 | XMS_ITS | Encounter Summary ---
Author Organization Healthcare Address [address] [place] [address] Care Team Providers Care Burning Machine Operator Name Role Phone Jevon Vazquez MD Primary Care Provider [phone] Encounter Details Date Type Department Care Team [...] Care Team (Late st Contact Info) Description 12/17/2024 9:30 AM EDT Clinical Support [facility] Hematology/BMT and Cellular Therapy Program [address] [address] 12/17/2024 10:00 AM EDT Office Visit [facility] Hematology/BMT and Cellular Therapy Program [address] [place] [address] New Mckinney MD 800 [facility] [address] [place] [address] 12/17/2024 11:30 AM EDT Appointment [facility] 2 [address] [place] [address] 12/18/2024 3:00 PM EDT Appointment [facility] 1 [address] [place] [address] 12/19/2024 3:00 PM EDT Appointment [facility] 2 [address] [place] [address] 12/20/2024 3:00 PM EDT Appointment [facility] 2 [address] [place] [address] 12/21/2024 3:00 PM EDT Appointment [facility] 2 [address] [place] [address] 12/22/2024 3:00 PM EDT Appointment [facility] 2 [address] [place] [address] 12/23/2024 3:00 PM EDT Appointment [facility] 2 [address] [place] [address] documented as of this encounter Visit Diagnoses Not on filedocumented in this encounter Additional Health Concerns Assessment Noted Time A fall risk assessment has been complete d for the patient 09/30/2024 9:33 AM EDT A Body Mass Index follow-up plan has been documented for the patient 05/28/2024 1:52 PM EST documented as of this encounter Care Teams Burning Machine Operator Relationship Specialty Start Date End Date Jevon Vazquez MD [address] [place] [address] #1 #1 [place] [address] PCP - General 03/23/22 documented as of this encounter
--- OUTSIDE RECORDS SUMMARY | 2024-12-04 09:18 | XMS_ITS | Encounter Summary ---
Author Organization Healthcare Address [address] [place] [address] Care Team Providers Care Museum Director Name Role Phone Jevon Vazquez MD Primary Care Provider [phone] Encounter Details Date Type Department Care Team [...] Hematology/BMT and Cellular Therapy Program [address] [address] 12/17/2024 10:00 AM EDT Office Visit [facility] Hematology/BMT and Cellular Therapy Program [address] [place] [address] New Mckinney MD 800 [facility] [address] [place] [address] 12/17/2024 11:30 AM EDT Appointment [facility] 2 [address] [place] [address] 12/18/2024 3:00 PM EDT Appointment [facility] 1 [address] [place] [address] 12/19/2024 3:00 PM EDT Appointment [facility] 2 [address] [place] [address] 12/20/2024 3:00 PM EDT Appointment [facility] 2 [address] [place] [address] 12/21/2024 3:00 PM EDT Appointment [facility] 2 [address] [place] [address] 12/22/2024 3:00 PM EDT Appointment [facility] 2 [address] [place] [address] 12/23/2024 3:00 PM EDT Appointment [facility] 2 [address] [place] [address] documented as of this encounter Visit Diagnoses Not on filedocumented in this encounter Additional Health Concerns Assessment Noted Time A fall risk assessment has been complete d for the patient 09/30/2024 9:33 AM EDT A Body Mass Index follow-up plan has been documented for the patient 05/28/2024 1:52 PM EST documented as of this encounter Care Teams Museum Director Relationship Specialty Start Date End Date Jevon Vazquez MD [address] [place] [address] #1 #1 [place] [address] PCP - General 03/23/22 documented as of this encounter
--- OUTSIDE RECORDS SUMMARY | 2024-12-04 09:18 | XMS_ITS | Encounter Summary ---
Author Organization Healthcare Address [address] [place] [address] Care Team Providers Care Fagot Heater Name Role Phone Jevon Vazquez MD Primary Care Provider [phone] Encounter Details Date Type Department Care Team (Late Contact Info) Description 11/27/2024 Telephone [facility] Hematology/BMT and Cellular Therapy Program [address] [address] Zonia Hoffman, RADIOLOGY TECHNICIAN 800 [facility] [address] [place] [address] Social History Tobacco Use Types Packs/Day Years [...] Telephone Encounter - 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 RN - 11/27/2024 3:19 PM EDT RN spoke with pt's and discussed schedule change per . He verbalizes understanding. documented in this encounter Plan of Treatment Upcoming Encounters Date Type Department Care Team (Late Contact Info) Description 12/17/2024 9:30 AM EDT Clinical Support [facility] Hematology/BMT and Cellular Therapy Program 750 [facility] [place] [address] 12/17/2024 10:00 AM EDT Office Visit PAV Hematology/BMT and Cellular Therapy Program 750 [facility] [place] [address] New Mckinney MD 800 [facility] [address] [place] [address] 12/17/2024 11:30 AM EDT Appointment [facility] 2 [address] [place] [address] 12/18/2024 3:00 PM EDT Appointment [facility] 1 [address] [place] [address] 12/19/2024 3:00 PM EDT Appointment [facility] 2 [address] [place] [address] 12/20/2024 3:00 PM EDT Appointment [facility] 2 [address] [place] [address] 12/21/2024 3:00 PM EDT Appointment [facility] 2 [address] [place] [address] 12/22/2024 3:00 PM EDT Appointment [facility] 2 [address] [place] [address] 12/23/2024 3:00 PM EDT Appointment [facility] 2 [address] [place] [address] documented as of this encounter Visit Diagnoses Not on filedocumented in this encounter Additional Health Concerns Assessment Noted Time A fall risk assessment has been complete d for the patient 09/30/2024 9:33 AM EDT A Body Mass Index follow-up plan has been documented for the patient 05/28/2024 1:52 PM EST documented as of this encounter Care Teams Fagot Heater Relationship Specialty Start Date End Date Jevon Vazquez MD [address] [place] [address] #1 #1 [place] [address] PCP - General 03/23/22 documented as of this encounter
--- OUTSIDE RECORDS SUMMARY | 2024-12-04 09:18 | XMS_ITS | Encounter Summary ---
Author Organization [facility] Address [address] [place] [address] Care Team Providers Care Breaker Up Name Role Phone Jevon Vazquez MD Primary Care Provider [phone] Encounter Details Date Type Department Care Team ([facility] Contact Info) Description 10/29/2024 Refill [facility] Hematology/BMT and Cellular Therapy Program [address] [address] Zonia Hoffman, STRUCTURAL STEEL WORKER APPRENTICE 800 [facility] [address] [place] [address] Acute myeloid leukemia not having achieved remission [...] ([facility] Contact Info) Description 12/17/2024 9:30 AM EDT Clinical Support [facility] Hematology/BMT and Cellular Therapy Program [address] [address] 12/17/2024 10:00 AM EDT Office Visit [facility] Hematology/BMT and Cellular Therapy Program [address] [place] [address] New Mckinney MD [address] [facility] [address] [place] [address] 12/17/2024 11:30 AM EDT Appointment [facility] 2 [address] [place] [address] 12/18/2024 3:00 PM EDT Appointment [facility] 1 [address] [place] [address] 12/19/2024 3:00 PM EDT Appointment [facility] 2 [address] [place] [address] 12/20/2024 3:00 PM EDT Appointment [facility] 2 [address] [place] [address] 12/21/2024 3:00 PM EDT Appointment [facility] 2 [address] [place] [address] 12/22/2024 3:00 PM EDT Appointment [facility] 2 [address] [place] [address] 12/23/2024 3:00 PM EDT Appointment [facility] 2 [address] [place] [address] documented as of this encounter Visit Diagnoses [...] documented as of this encounter Care Teams Breaker Up Relationship Specialty Start Date End Date Jevon Vazquez MD [address] [place] [address] #1 #1 [place] [address] PCP - General 03/23/22 documented as of this encounter
--- OUTSIDE RECORDS SUMMARY | 2024-12-04 09:18 | XMS_ITS | Encounter Summary ---
Author Organization Healthcare Address [address] [place] [address] Care Team Providers Care Bilingual Sales Assistant Name Role Phone Jevon Vazquez MD Primary Care Provider [phone] Encounter Details Date Type Department Care Team ([facility] st Contact Info) Description 10/13/2024 Telephone [facility] Hematology/BMT and Cellular Therapy Program [address] [address] Zonia Hoffman, SKEIN MERCERIZING MACHINE OPERATOR 800 [facility] [address] [place] [address] Social History Tobacco Use Types Packs/Day Years [...] needs to be delayed again Callback number: [phone] documented in this encounter Plan of Treatment Upcoming Encounters Date Type Department Care Team ([facility] st Contact Info) Description 12/17/2024 9:30 AM EDT Clinical Support [facility] Hematology/BMT and Cellular Therapy Program [address] [place] [address] 12/17/2024 10:00 AM EDT Office Visit [facility] Hematology/BMT and Cellular Therapy Program [address] [address] New Mckinney MD 800 [facility] [address] [place] [address] 12/17/2024 11:30 AM EDT Appointment [facility] [address] [place] [address] 12/18/2024 3:00 PM EDT Appointment [facility] 1 [address] [place] [address] 12/19/2024 3:00 PM EDT Appointment [facility] 2 [address] [place] [address] 12/20/2024 3:00 PM EDT Appointment [facility] 2 [address] [place] [address] 12/21/2024 3:00 PM EDT Appointment [facility] 2 [address] [place] [address] 12/22/2024 3:00 PM EDT Appointment [facility] 2 [address] [place] [address] 12/23/2024 3:00 PM EDT Appointment [facility] 2 [address] [place] [address] documented as of this encounter Visit Diagnoses Not on filedocumented in this encounter Additional Health Concerns Assessment Noted Time A fall risk assessment has been complete d for the patient 09/30/2024 9:33 AM EDT A Body Mass Index follow-up plan has been documented for the patient 05/28/2024 1:52 PM EST documented as of this encounter Care Teams Bilingual Sales Assistant Relationship Specialty Start Date End Date Jevon Vazquez MD [address] [place] [address] #1 #1 [place] [address] PCP - General 03/23/22 documented as of this encounter
--- OUTSIDE RECORDS SUMMARY | 2024-12-04 09:18 | XMS_ITS | Encounter Summary ---
Author Organization [facility] Address [address] [place] [address] Care Team Providers Care Adjutant General Name Role Phone Jevon Vazquez MD Primary Care Provider [phone] Reason for Visit * Reason Comments Med Refill Encounter Details Date Type Department Care Team ([facility] Contact Info) Description 01/30/2024 Refill [facility] Hematology/BMT and Cellular Therapy Program [address] [place] [phone] New Mckinney MD 800 [facility] [address] [place] [address] Social History Tobacco Use Types Packs/Day Years [...] Upcoming Encounters Date Type Department Care Team ([facility] Contact Info) Description 12/17/2024 9:30 AM EDT Clinical Support [facility] Hematology/BMT and Cellular Therapy Program [address] [place] [address] 12/17/2024 10:00 AM EDT Office Visit [facility] Hematology/BMT and Cellular Therapy Program [address] [address] New Mckinney MD [address] [facility] [address] [place] [address] 12/17/2024 11:30 AM EDT Appointment [facility] 2 [address] [place] [address] 12/18/2024 3:00 PM EDT Appointment [facility] 1 [address] [place] [address] 12/19/2024 3:00 PM EDT Appointment [facility] 2 [address] [place] [address] 12/20/2024 3:00 PM EDT Appointment [facility] 2 [address] [place] [address] 12/21/2024 3:00 PM EDT Appointment [facility] 2 [address] [place] [address] 12/22/2024 3:00 PM EDT Appointment [facility] 2 [address] [place] [address] 12/23/2024 3:00 PM EDT Appointment [facility] 2 [address] [place] [address] documented as of this encounter Visit Diagnoses Not on filedocumented in this encounter Additional Health Concerns Assessment Noted Time A fall risk assessment has been complete d for the patient 01/11/2024 9:16 AM EDT A Body Mass Index follow-up plan has been documented for the patient 01/21/2024 6:16 AM EDT documented as of this encounter Care Teams Adjutant General Relationship Specialty Start Date End Date Jevon Vazquez MD [address] [place] [address] #1 #1 [place] [address] PCP - General 03/23/22 documented as of this encounter
--- OUTSIDE RECORDS SUMMARY | 2024-12-04 09:18 | XMS_ITS | Encounter Summary ---
Author Organization [facility] Address [address] [place] [address] Care Team Providers Care Bait Digger Name Role Phone Jevon Vazquez MD Primary Care Provider [phone] Reason for Visit * Reason Comments Med Refill Encounter Details Date Type Department Care Team ([facility] Contact Info) Description 10/14/2024 Refill [facility] Hematology/BMT and Cellular Therapy Program [address] [phone] New Mckinney MD 800 [facility] [address] [place] [phone] Social History Tobacco Use Types Packs/Day Years [...] Team ([facility] Contact Info) Description 12/17/2024 9:30 AM EDT Clinical Support [facility] Hematology/BMT and Cellular Therapy Program [address] [address] 12/17/2024 10:00 AM EDT Office Visit [facility] Hematology/BMT and Cellular Therapy Program [address] [address] New Mckinney MD [address] [facility] [address] [place] [address] 12/17/2024 11:30 AM EDT Appointment [facility] 2 [address] [place] [address] 12/18/2024 3:00 PM EDT Appointment [facility] 1 [address] [place] [address] 12/19/2024 3:00 PM EDT Appointment [facility] 2 744 [place] [address] 12/20/2024 3:00 PM EDT Appointment [facility] 2 [address] [place] [address] 12/21/2024 3:00 PM EDT Appointment [facility] 2 [address] [place] [address] 12/22/2024 3:00 PM EDT Appointment [facility] 2 [address] [place] [address] 12/23/2024 3:00 PM EDT Appointment [facility] 2 [address] [place] [address] documented as of this encounter Visit Diagnoses Not on filedocumented in this encounter Additional Health Concerns Assessment Noted Time A fall risk assessment has been complete d for the patient 09/30/2024 9:33 AM EDT A Body Mass Index follow-up plan has been documented for the patient 05/28/2024 1:52 PM EST documented as of this encounter Care Teams Bait Digger Relationship Specialty Start Date End Date Jevon Vazquez MD [address] [place] [address] #1 #1 [place] [address] PCP - General 03/23/22 documented as of this encounter
--- OUTSIDE RECORDS SUMMARY | 2024-12-04 09:18 | XMS_ITS | Encounter Summary ---
Author Organization Healthcare Address [address] [place] [address] Care Team Providers Care Furnace Filler Name Role Phone Jevon Vazquez MD Primary Care Provider [phone] Encounter Details Date Type Department Care Team [...] Hematology/BMT and Cellular Therapy Program [address] [address] 12/17/2024 10:00 AM EDT Office Visit [facility] Hematology/BMT and Cellular Therapy Program [address] [place] [address] New Mckinney MD 800 [facility] [address] [place] [address] 12/17/2024 11:30 AM EDT Appointment [facility] 2 [address] [place] [address] 12/18/2024 3:00 PM EDT Appointment [facility] 1 [address] [place] [address] 12/19/2024 3:00 PM EDT Appointment [facility] 2 [address] [place] [address] 12/20/2024 3:00 PM EDT Appointment [facility] 2 [address] [place] [address] 12/21/2024 3:00 PM EDT Appointment [facility] 2 [address] [place] [address] 12/22/2024 3:00 PM EDT Appointment [facility] 2 [address] [place] [address] 12/23/2024 3:00 PM EDT Appointment [facility] 2 [address] [place] [address] documented as of this encounter Visit Diagnoses Not on filedocumented in this encounter Additional Health Concerns Assessment Noted Time A fall risk assessment has been complete d for the patient 09/30/2024 9:33 AM EDT A Body Mass Index follow-up plan has been documented for the patient 05/28/2024 1:52 PM EST documented as of this encounter Care Teams Furnace Filler Relationship Specialty Start Date End Date Jevon Vazquez MD [address] [place] [address] #1 #1 [place] [address] PCP - General 03/23/22 documented as of this encounter
--- OUTSIDE RECORDS SUMMARY | 2024-12-04 09:18 | XMS_ITS ---
Author Organization [facility] Address [address] [place] [address] Care Team Providers Care Maintenance Trainer Name Role Phone Jevon Vazquez MD Primary Care Provider [phone] Active Problems Problem Noted Date Diagnosed Date [...]
--- OUTSIDE RECORDS SUMMARY | 2024-12-04 09:19 | XMS_ITS | Encounter Summary ---
Author Organization Healthcare Address [address] [place] [address] Care Team Providers Care Certified Alcohol And Drug Counselor Name Role Phone Jevon Vazquez MD Primary Care Provider [phone] Encounter Details Date Type Department Care Team [...] Hematology/BMT and Cellular Therapy Program [address] [address] 12/17/2024 10:00 AM EDT Office Visit [facility] Hematology/BMT and Cellular Therapy Program [address] [place] [address] New Mckinney MD 800 [facility] [address] [place] [address] 12/17/2024 11:30 AM EDT Appointment [facility] 2 [address] [place] [address] 12/18/2024 3:00 PM EDT Appointment [facility] 1 [address] [place] [address] 12/19/2024 3:00 PM EDT Appointment [facility] 2 [address] [place] [address] 12/20/2024 3:00 PM EDT Appointment [facility] 2 [address] [place] [address] 12/21/2024 3:00 PM EDT Appointment [facility] 2 [address] [place] [address] 12/22/2024 3:00 PM EDT Appointment [facility] 2 [address] [place] [address] 12/23/2024 3:00 PM EDT Appointment [facility] 2 [address] [place] [address] documented as of this encounter Visit Diagnoses Not on filedocumented in this encounter Additional Health Concerns Assessment Noted Time A fall risk assessment has been complete d for the patient 09/30/2024 9:33 AM EDT A Body Mass Index follow-up plan has been documented for the patient 05/28/2024 1:52 PM EST documented as of this encounter Care Teams Certified Alcohol And Drug Counselor Relationship Specialty Start Date End Date Jevon Vazquez MD [address] [place] [address] #1 #1 [place] [address] PCP - General 03/23/22 documented as of this encounter
--- OUTSIDE RECORDS SUMMARY | 2024-12-04 09:19 | XMS_ITS | Encounter Summary ---
Author Organization Healthcare Address [address] [place] [address] Care Team Providers Care Disability Counselor Name Role Phone Jevon Vazquez MD Primary Care Provider [phone] Encounter Details Date Type Department Care Team ([facility] st Contact Info) Description 10/27/2024 Telephone [facility] Hematology/BMT and Cellular Therapy Program [address] [address] Zonia Hoffman, SENIOR QA ANALYST 800 [facility] [address] [place] [address] Social History Tobacco Use Types Packs/Day Years [...] and her new appts will be on [employer]. She verbalizes understanding. * Telephone Encounter - [...] Hematology/BMT and Cellular Therapy Program [address] [address] 12/17/2024 10:00 AM EDT Office Visit PAV Hematology/BMT and Cellular Therapy Program [address] [address] New Mckinney MD 800 [facility] [address] [place] [address] 12/17/2024 11:30 AM EDT Appointment [facility] 2 [address] [place] [address] 12/18/2024 3:00 PM EDT Appointment [facility] 1 [address] [place] [address] 12/19/2024 3:00 PM EDT Appointment [facility] 2 [address] [place] [address] 12/20/2024 3:00 PM EDT Appointment [facility] 2 [address] [place] [address] 12/21/2024 3:00 PM EDT Appointment [facility] 2 [address] [place] [address] 12/22/2024 3:00 PM EDT Appointment [facility] 2 [address] [place] [address] 12/23/2024 3:00 PM EDT Appointment [facility] 2 [address] [place] [address] documented as of this encounter Visit Diagnoses Not on filedocumented in this encounter Additional Health Concerns Assessment Noted Time A fall risk assessment has been complete d for the patient 09/30/2024 9:33 AM EDT A Body Mass Index follow-up plan has been documented for the patient 05/28/2024 1:52 PM EST documented as of this encounter Care Teams Disability Counselor Relationship Specialty Start Date End Date Jevon Vazquez MD [address] [place] [address] #1 #1 [place] [address] PCP - General 03/23/22 documented as of this encounter
--- OUTSIDE RECORDS SUMMARY | 2024-12-04 09:19 | XMS_ITS | Encounter Summary ---
Author Organization Healthcare Address [address] [place] [address] Care Team Providers Care Java Technical Architect Name Role Phone Jevon Vazquez MD Primary Care Provider [phone] Encounter Details Date Type Department Care Team [...] Hematology/BMT and Cellular Therapy Program [address] [address] 12/17/2024 10:00 AM EDT Office Visit [facility] Hematology/BMT and Cellular Therapy Program [address] [place] [address] New Mckinney MD 800 [facility] [address] [place] [address] 12/17/2024 11:30 AM EDT Appointment [facility] 2 744 [place] [address] 12/18/2024 3:00 PM EDT Appointment [facility] 1 [address] [place] [address] 12/19/2024 3:00 PM EDT Appointment [facility] 2 [address] [place] [address] 12/20/2024 3:00 PM EDT Appointment [facility] 2 [address] [place] [address] 12/21/2024 3:00 PM EDT Appointment [facility] 2 [address] [place] [address] 12/22/2024 3:00 PM EDT Appointment [facility] 2 [address] [place] [address] 12/23/2024 3:00 PM EDT Appointment [facility] 2 [address] [place] [address] documented as of this encounter Visit Diagnoses Not on filedocumented in this encounter Additional Health Concerns Assessment Noted Time A fall risk assessment has been complete d for the patient 09/30/2024 9:33 AM EDT A Body Mass Index follow-up plan has been documented for the patient 05/28/2024 1:52 PM EST documented as of this encounter Care Teams Java Technical Architect Relationship Specialty Start Date End Date Jevon Vazquez MD [address] [place] [address] #1 #1 [place] [address] PCP - General 03/23/22 documented as of this encounter
--- OUTSIDE RECORDS SUMMARY | 2024-12-04 09:19 | XMS_ITS | Encounter Summary ---
Author Organization Healthcare Address [address] [place] [address] Care Team Providers Care Last Trimmer Name Role Phone Jevon Vazquez MD Primary Care Provider [phone] Encounter Details Date Type Department Care Team [...] Hematology/BMT and Cellular Therapy Program [address] [address] 12/17/2024 10:00 AM EDT Office Visit [facility] Hematology/BMT and Cellular Therapy Program [address] [address] New Mckinney MD 800 [facility] [address] [place] [address] 12/17/2024 11:30 AM EDT Appointment [facility] 2 [address] [place] [address] 12/18/2024 3:00 PM EDT Appointment [facility] 1 [address] [place] [address] 12/19/2024 3:00 PM EDT Appointment [facility] 2 [address] [place] [address] 12/20/2024 3:00 PM EDT Appointment [facility] 2 [address] [place] [address] 12/21/2024 3:00 PM EDT Appointment [facility] 2 [address] [place] [address] 12/22/2024 3:00 PM EDT Appointment [facility] 2 [address] [place] [address] 12/23/2024 3:00 PM EDT Appointment [facility] 2 [address] [place] [address] documented as of this encounter Visit Diagnoses Not on filedocumented in this encounter Additional Health Concerns Assessment Noted Time A fall risk assessment has been complete d for the patient 09/30/2024 9:33 AM EDT A Body Mass Index follow-up plan has been documented for the patient 05/28/2024 1:52 PM EST documented as of this encounter Care Teams Last Trimmer Relationship Specialty Start Date End Date Jevon Vazquez MD [address] [place] [address] #1 #1 [place] [address] PCP - General 03/23/22 documented as of this encounter
--- OUTSIDE RECORDS SUMMARY | 2024-12-04 09:19 | XMS_ITS | Encounter Summary ---
Author Organization Healthcare Address [address] [place] [address] Care Team Providers Care Hemp Fiber Taker Off Name Role Phone Jevon Vazquez MD Primary Care Provider [phone] Encounter Details Date Type Department Care Team [...] Hematology/BMT and Cellular Therapy Program [address] [address] 12/17/2024 10:00 AM EDT Office Visit [facility] Hematology/BMT and Cellular Therapy Program [address] [place] [address] New Mckinney MD 800 [facility] [address] [place] [address] 12/17/2024 11:30 AM EDT Appointment [facility] 2 [address] [place] [address] 12/18/2024 3:00 PM EDT Appointment [facility] 1 [address] [place] [address] 12/19/2024 3:00 PM EDT Appointment [facility] 2 [address] [place] [address] 12/20/2024 3:00 PM EDT Appointment [facility] 2 [address] [place] [address] 12/21/2024 3:00 PM EDT Appointment [facility] 2 [address] [place] [address] 12/22/2024 3:00 PM EDT Appointment [facility] 2 [address] [place] [address] 12/23/2024 3:00 PM EDT Appointment [facility] 2 [address] [place] [address] documented as of this encounter Visit Diagnoses Not on filedocumented in this encounter Additional Health Concerns Assessment Noted Time A fall risk assessment has been complete d for the patient 09/30/2024 9:33 AM EDT A Body Mass Index follow-up plan has been documented for the patient 05/28/2024 1:52 PM EST documented as of this encounter Care Teams Hemp Fiber Taker Off Relationship Specialty Start Date End Date Jevon Vazquez MD [address] [place] [address] #1 #1 [place] [address] PCP - General 03/23/22 documented as of this encounter
--- OUTSIDE RECORDS SUMMARY | 2024-12-04 09:19 | XMS_ITS | Encounter Summary ---
Author Organization Healthcare Address [address] [place] [address] Care Team Providers Care Fundraising Sale Representative Name Role Phone Jevon Vazquez MD Primary Care Provider [phone] Encounter Details Date Type Department Care Team ([facility] st Contact Info) Description 10/28/2024 Telephone [facility] Hematology/BMT and Cellular Therapy Program [address] [address] Zonia Hoffman, COTTON GINNER HELPER 800 [facility] [address] [place] [address] Social History Tobacco Use Types Packs/Day Years [...] go over her labs results Callback number: [phone] documented in this encounter Plan of Treatment Upcoming Encounters Date Type Department Care Team (Late st Contact Info) Description 12/17/2024 9:30 AM EDT Clinical Support [facility] CC Hematology/BMT and Cellular Therapy Program 750 [facility], [address] [place] [address] 12/17/2024 10:00 AM EDT Office Visit PAV Hematology/BMT and Cellular Therapy Program 750 [facility], [address] [place] [address] New Mckinney MD 800 [facility] [address] [place] [address] 12/17/2024 11:30 AM EDT Appointment [facility] 2 [address] [place] [address] 12/18/2024 3:00 PM EDT Appointment [facility] 1 [address] [place] [address] 12/19/2024 3:00 PM EDT Appointment [facility] 2 [address] [place] [address] 12/20/2024 3:00 PM EDT Appointment [facility] 2 [address] [place] [address] 12/21/2024 3:00 PM EDT Appointment [facility] 2 [address] [place] [address] 12/22/2024 3:00 PM EDT Appointment [facility] 2 [address] [place] [address] 12/23/2024 3:00 PM EDT Appointment [facility] 2 [address] [place] [address] documented as of this encounter Visit Diagnoses Not on filedocumented in this encounter Additional Health Concerns Assessment Noted Time A fall risk assessment has been complete d for the patient 09/30/2024 9:33 AM EDT A Body Mass Index follow-up plan has been documented for the patient 05/28/2024 1:52 PM EST documented as of this encounter Care Teams Fundraising Sale Representative Relationship Specialty Start Date End Date Jevon Vazquez MD [address] [place] [address] #1 #1 [place] [address] PCP - General 03/23/22 documented as of this encounter
--- OUTSIDE RECORDS SUMMARY | 2024-12-04 09:19 | XMS_ITS | Encounter Summary ---
Author Organization Healthcare Address [address] [place] [address] Care Team Providers Care Tip Cementer Name Role Phone Jevon Vazquez MD Primary Care Provider [phone] Encounter Details Date Type Department Care Team [...] Hematology/BMT and Cellular Therapy Program [address] [address] 12/17/2024 10:00 AM EDT Office Visit [facility] Hematology/BMT and Cellular Therapy Program [address] [place] [address] New Mckinney MD 800 [facility] [address] [place] [address] 12/17/2024 11:30 AM EDT Appointment [facility] 2 [address] [place] [address] 12/18/2024 3:00 PM EDT Appointment [facility] 1 [address] [place] [address] 12/19/2024 3:00 PM EDT Appointment [facility] 2 [address] [place] [address] 12/20/2024 3:00 PM EDT Appointment [facility] 2 [address] [place] [address] 12/21/2024 3:00 PM EDT Appointment [facility] 2 [address] [place] [address] 12/22/2024 3:00 PM EDT Appointment [facility] 2 [address] [place] [address] 12/23/2024 3:00 PM EDT Appointment [facility] 2 [address] [place] [address] documented as of this encounter Visit Diagnoses Not on filedocumented in this encounter Additional Health Concerns Assessment Noted Time A fall risk assessment has been complete d for the patient 09/30/2024 9:33 AM EDT A Body Mass Index follow-up plan has been documented for the patient 05/28/2024 1:52 PM EST documented as of this encounter Care Teams Tip Cementer Relationship Specialty Start Date End Date Jevon Vazquez MD [address] [place] [address] #1 #1 [place] [address] PCP - General 03/23/22 documented as of this encounter
--- OUTSIDE RECORDS SUMMARY | 2024-12-04 09:19 | XMS_ITS | Encounter Summary ---
Author Organization Healthcare Address [address] [place] [address] Care Team Providers Care Operations Business Partner Name Role Phone Jevon Vazquez MD Primary Care Provider [phone] Encounter Details Date Type Department Care Team [...] Hematology/BMT and Cellular Therapy Program [address] [address] 12/17/2024 10:00 AM EDT Office Visit [facility] Hematology/BMT and Cellular Therapy Program [address] [place] [address] New Mckinney MD [address] [facility] [address] [place] [address] 12/17/2024 11:30 AM EDT Appointment [facility] [address] [place] [address] 12/18/2024 3:00 PM EDT Appointment [facility] 1 [address] [place] [address] 12/19/2024 3:00 PM EDT Appointment [facility] 2 [address] [place] [address] 12/20/2024 3:00 PM EDT Appointment [facility] 2 [address] [place] [address] 12/21/2024 3:00 PM EDT Appointment [facility] 2 [address] [place] [address] 12/22/2024 3:00 PM EDT Appointment [facility] 2 [address] [place] [address] 12/23/2024 3:00 PM EDT Appointment [facility] 2 [address] [place] [address] documented as of this encounter Visit Diagnoses Not on filedocumented in this encounter Additional Health Concerns Assessment Noted Time A fall risk assessment has been complete d for the patient 09/30/2024 9:33 AM EDT A Body Mass Index follow-up plan has been documented for the patient 05/28/2024 1:52 PM EST documented as of this encounter Care Teams Operations Business Partner Relationship Specialty Start Date End Date Jevon Vazquez MD [address] [place] [address] [address]1 [address]1 [place] [address] PCP - General 03/23/22 documented as of this encounter
--- OUTSIDE RECORDS SUMMARY | 2024-12-04 09:19 | XMS_ITS | Encounter Summary ---
Author Organization Healthcare Address [address] [place] [address] Care Team Providers Care Plate Colorer Name Role Phone Jevon Vazquez MD Primary Care Provider [phone] Encounter Details Date Type Department Care Team [...] Hematology/BMT and Cellular Therapy Program [address] [address] 12/17/2024 10:00 AM EDT Office Visit [facility] Hematology/BMT and Cellular Therapy Program [address] [place] [address] New Mckinney MD 800 [facility] [address] [place] [address] 12/17/2024 11:30 AM EDT Appointment [facility] 2 [address] [place] [address] 12/18/2024 3:00 PM EDT Appointment [facility] 1 [address] [place] [address] 12/19/2024 3:00 PM EDT Appointment [facility] 2 [address] [place] [address] 12/20/2024 3:00 PM EDT Appointment [facility] 2 [address] [place] [address] 12/21/2024 3:00 PM EDT Appointment [facility] 2 [address] [place] [address] 12/22/2024 3:00 PM EDT Appointment [facility] 2 [address] [place] [address] 12/23/2024 3:00 PM EDT Appointment [facility] 2 [address] [place] [address] documented as of this encounter Visit Diagnoses Not on filedocumented in this encounter Additional Health Concerns Assessment Noted Time A fall risk assessment has been complete d for the patient 09/30/2024 9:33 AM EDT A Body Mass Index follow-up plan has been documented for the patient 05/28/2024 1:52 PM EST documented as of this encounter Care Teams Plate Colorer Relationship Specialty Start Date End Date Jevon Vazquez MD [address] [place] [address] [address]1 [address]1 [place] [address] PCP - General 03/23/22 documented as of this encounter
--- OUTSIDE RECORDS SUMMARY | 2024-12-04 09:19 | XMS_ITS | Encounter Summary ---
Author Organization Healthcare Address [address] [place] [address] Care Team Providers Care Litigation Counsel Name Role Phone Jevon Vazquez MD Primary Care Provider [phone] Encounter Details Date Type Department Care Team [...] Hematology/BMT and Cellular Therapy Program [address] [address] 12/17/2024 10:00 AM EDT Office Visit [facility] Hematology/BMT and Cellular Therapy Program [address] [place] [address] New Mckinney MD 800 [facility] [address] [place] [address] 12/17/2024 11:30 AM EDT Appointment [facility] 2 [address] [place] [address] 12/18/2024 3:00 PM EDT Appointment [facility] 1 [address] [place] [address] 12/19/2024 3:00 PM EDT Appointment [facility] 2 [address] [place] [address] 12/20/2024 3:00 PM EDT Appointment [facility] 2 [address] [place] [address] 12/21/2024 3:00 PM EDT Appointment [facility] 2 [address] [place] [address] 12/22/2024 3:00 PM EDT Appointment [facility] 2 [address] [place] [address] 12/23/2024 3:00 PM EDT Appointment [facility] 2 [address] [place] [address] documented as of this encounter Visit Diagnoses Not on filedocumented in this encounter Additional Health Concerns Assessment Noted Time A fall risk assessment has been complete d for the patient 09/30/2024 9:33 AM EDT A Body Mass Index follow-up plan has been documented for the patient 05/28/2024 1:52 PM EST documented as of this encounter Care Teams Litigation Counsel Relationship Specialty Start Date End Date Jevon Vazquez MD [address] [place] [address] [address]1 [address]1 [place] [address] PCP - General 03/23/22 documented as of this encounter
--- OUTSIDE RECORDS SUMMARY | 2024-12-04 09:19 | XMS_ITS | Encounter Summary ---
Author Organization Healthcare Address [address] [place] [address] Care Team Providers Care Round Up Ring Hand Name Role Phone Jevon Vazquez MD Primary Care Provider [phone] Encounter Details Date Type Department Care Team [...] Hematology/BMT and Cellular Therapy Program [address] [address] 12/17/2024 10:00 AM EDT Office Visit [facility] Hematology/BMT and Cellular Therapy Program [address] [place] [address] New Mckinney MD 800 [facility] [address] [place] [address] 12/17/2024 11:30 AM EDT Appointment [facility] 2 [address] [place] [address] 12/18/2024 3:00 PM EDT Appointment [facility] 1 [address] [place] [address] 12/19/2024 3:00 PM EDT Appointment [facility] 2 [address] [place] [address] 12/20/2024 3:00 PM EDT Appointment [facility] 2 [address] [place] [address] 12/21/2024 3:00 PM EDT Appointment [facility] 2 [address] [place] [address] 12/22/2024 3:00 PM EDT Appointment [facility] 2 [address] [place] [address] 12/23/2024 3:00 PM EDT Appointment [facility] 2 [address] [place] [address] documented as of this encounter Visit Diagnoses Not on filedocumented in this encounter Additional Health Concerns Assessment Noted Time A fall risk assessment has been complete d for the patient 09/30/2024 9:33 AM EDT A Body Mass Index follow-up plan has been documented for the patient 05/28/2024 1:52 PM EST documented as of this encounter Care Teams Round Up Ring Hand Relationship Specialty Start Date End Date Jevon Vazquez MD [address] [place] [address] [address]1 [address]1 [place] [address] PCP - General 03/23/22 documented as of this encounter
--- OUTSIDE RECORDS SUMMARY | 2024-12-04 09:19 | XMS_ITS | Encounter Summary ---
Author Organization Healthcare Address [address] [place] [address] Care Team Providers Care Windows Server Architect Name Role Phone Jevon Vazquez MD Primary Care Provider [phone] Encounter Details Date Type Department Care Team [...] Hematology/BMT and Cellular Therapy Program [address] [address] 12/17/2024 10:00 AM EDT Office Visit [facility] Hematology/BMT and Cellular Therapy Program [address] [place] [address] New Mckinney MD 800 [facility] [address] [place] [address] 12/17/2024 11:30 AM EDT Appointment [facility] 2 [address] [place] [address] 12/18/2024 3:00 PM EDT Appointment [facility] 1 [address] [place] [address] 12/19/2024 3:00 PM EDT Appointment [facility] 2 [address] [place] [address] 12/20/2024 3:00 PM EDT Appointment [facility] 2 [address] [place] [address] 12/21/2024 3:00 PM EDT Appointment [facility] 2 [address] [place] [address] 12/22/2024 3:00 PM EDT Appointment [facility] 2 [address] [place] [address] 12/23/2024 3:00 PM EDT Appointment [facility] 2 [address] [place] [address] documented as of this encounter Visit Diagnoses Not on filedocumented in this encounter Additional Health Concerns Assessment Noted Time A fall risk assessment has been complete d for the patient 09/30/2024 9:33 AM EDT A Body Mass Index follow-up plan has been documented for the patient 05/28/2024 1:52 PM EST documented as of this encounter Care Teams Windows Server Architect Relationship Specialty Start Date End Date Jevon Vazquez MD [address] [place] [address] [address]1 [address]1 [place] [address] PCP - General 03/23/22 documented as of this encounter
--- OUTSIDE RECORDS SUMMARY | 2024-12-04 09:19 | XMS_ITS | Encounter Summary ---
Author Organization Healthcare Address [address] [place] [address] Care Team Providers Care Buyer Grain Name Role Phone Jevon Vazquez MD Primary Care Provider [phone] Encounter Details Date Type Department Care Team [...] Hematology/BMT and Cellular Therapy Program [address] [address] 12/17/2024 10:00 AM EDT Office Visit [facility] Hematology/BMT and Cellular Therapy Program [address] [place] [address] New Mckinney MD 800 [facility] [address] [place] [address] 12/17/2024 11:30 AM EDT Appointment [facility] 2 [address] [place] [address] 12/18/2024 3:00 PM EDT Appointment [facility] 1 [address] [place] [address] 12/19/2024 3:00 PM EDT Appointment [facility] 2 [address] [place] [address] 12/20/2024 3:00 PM EDT Appointment [facility] 2 [address] [place] [address] 12/21/2024 3:00 PM EDT Appointment [facility] 2 [address] [place] [address] 12/22/2024 3:00 PM EDT Appointment [facility] 2 [address] [place] [address] 12/23/2024 3:00 PM EDT Appointment [facility] 2 [address] [place] [address] documented as of this encounter Visit Diagnoses Not on filedocumented in this encounter Additional Health Concerns Assessment Noted Time A fall risk assessment has been complete d for the patient 09/30/2024 9:33 AM EDT A Body Mass Index follow-up plan has been documented for the patient 05/28/2024 1:52 PM EST documented as of this encounter Care Teams Buyer Grain Relationship Specialty Start Date End Date Jevon Vazquez MD [address] [place] [address] [address]1 [address]1 [place] [address] PCP - General 03/23/22 documented as of this encounter
--- OUTSIDE RECORDS SUMMARY | 2024-12-04 09:19 | XMS_ITS | Encounter Summary ---
Author Organization [facility] Address [address] [place] [address] Care Team Providers Care Telegraphic Typewriter Repairer Name Role Phone Jevon Vazquez MD Primary Care Provider [phone] Reason for Visit * Reason Comments Med Refill Encounter Details Date Type Department Care Team ([facility] Contact Info) Description 11/08/2024 Refill [facility] Hematology/BMT and Cellular Therapy Program [address] [phone] New Mckinney MD 800 [facility] [address] [place] [address] Social History Tobacco Use Types Packs/Day Years [...] Team ([facility] Contact Info) Description 12/17/2024 9:30 AM EDT Clinical Support [facility] Hematology/BMT and Cellular Therapy Program [address] [address] 12/17/2024 10:00 AM EDT Office Visit [facility] Hematology/BMT and Cellular Therapy Program [address] [address] New Mckinney MD [address] [facility] [address] [place] [address] 12/17/2024 11:30 AM EDT Appointment [facility] 2 [address] [place] [address] 12/18/2024 3:00 PM EDT Appointment [facility] 1 [address] [place] [address] 12/19/2024 3:00 PM EDT Appointment [facility] 2 [address] [place] [address] 12/20/2024 3:00 PM EDT Appointment [facility] 2 [address] [place] [address] 12/21/2024 3:00 PM EDT Appointment [facility] 2 [address] [place] [address] 12/22/2024 3:00 PM EDT Appointment [facility] 2 [address] [place] [address] 12/23/2024 3:00 PM EDT Appointment [facility] 2 [address] [place] [address] documented as of this encounter Visit Diagnoses Not on filedocumented in this encounter Additional Health Concerns Assessment Noted Time A fall risk assessment has been complete d for the patient 09/30/2024 9:33 AM EDT A Body Mass Index follow-up plan has been documented for the patient 05/28/2024 1:52 PM EST documented as of this encounter Care Teams Telegraphic Typewriter Repairer Relationship Specialty Start Date End Date Jevon Vazquez MD [address] [place] [address] #1 [address]1 [place] [address] PCP - General 03/23/22 documented as of this encounter
--- OUTSIDE RECORDS SUMMARY | 2024-12-04 09:19 | XMS_ITS | Encounter Summary ---
Author Organization Healthcare Address [address] [place] [address] Care Team Providers Care Photo Engraver Name Role Phone Jevon Vazquez MD Primary Care Provider [phone] Encounter Details Date Type Department Care Team [...] Hematology/BMT and Cellular Therapy Program [address] [address] 12/17/2024 10:00 AM EDT Office Visit [facility] Hematology/BMT and Cellular Therapy Program [address] [place] [address] New Mckinney MD 800 [facility] [address] [place] [address] 12/17/2024 11:30 AM EDT Appointment [facility] 2 [address] [place] [address] 12/18/2024 3:00 PM EDT Appointment [facility] 1 [address] [place] [address] 12/19/2024 3:00 PM EDT Appointment [facility] 2 [address] [place] [address] 12/20/2024 3:00 PM EDT Appointment [facility] 2 [address] [place] [address] 12/21/2024 3:00 PM EDT Appointment [facility] 2 [address] [place] [address] 12/22/2024 3:00 PM EDT Appointment [facility] 2 [address] [place] [address] 12/23/2024 3:00 PM EDT Appointment [facility] 2 [address] [place] [address] documented as of this encounter Visit Diagnoses Not on filedocumented in this encounter Additional Health Concerns Assessment Noted Time A fall risk assessment has been complete d for the patient 09/30/2024 9:33 AM EDT A Body Mass Index follow-up plan has been documented for the patient 05/28/2024 1:52 PM EST documented as of this encounter Care Teams Photo Engraver Relationship Specialty Start Date End Date Jevon Vazquez MD [address] [place] [address] #1 [address]1 [place] [address] PCP - General 03/23/22 documented as of this encounter
--- OUTSIDE RECORDS SUMMARY | 2024-12-04 09:19 | XMS_ITS | Encounter Summary ---
Author Organization Healthcare Address [address] [place] [address] Care Team Providers Care Journeyman Patternmaker Name Role Phone Jevon Vazquez MD Primary Care Provider [phone] Encounter Details Date Type Department Care Team [...] Hematology/BMT and Cellular Therapy Program [address] [address] 12/17/2024 10:00 AM EDT Office Visit [facility] Hematology/BMT and Cellular Therapy Program [address] [place] [address] New Mckinney MD 800 [facility] [address] [place] [address] 12/17/2024 11:30 AM EDT Appointment [facility] 2 [address] [place] [address] 12/18/2024 3:00 PM EDT Appointment [facility] 1 [address] [place] [address] 12/19/2024 3:00 PM EDT Appointment [facility] 2 [address] [place] [address] 12/20/2024 3:00 PM EDT Appointment [facility] 2 [address] [place] [address] 12/21/2024 3:00 PM EDT Appointment [facility] 2 [address] [place] [address] 12/22/2024 3:00 PM EDT Appointment [facility] 2 [address] [place] [address] 12/23/2024 3:00 PM EDT Appointment [facility] 2 [address] [place] [address] documented as of this encounter Visit Diagnoses Not on filedocumented in this encounter Additional Health Concerns Assessment Noted Time A fall risk assessment has been complete d for the patient 09/30/2024 9:33 AM EDT A Body Mass Index follow-up plan has been documented for the patient 05/28/2024 1:52 PM EST documented as of this encounter Care Teams Journeyman Patternmaker Relationship Specialty Start Date End Date Jevon Vazquez MD [address] [place] [address] #1 [address]1 [place] [address] PCP - General 03/23/22 documented as of this encounter
--- OUTSIDE RECORDS SUMMARY | 2024-12-04 09:19 | XMS_ITS | Clinical Summary ---
Author Organization [facility] Address [address] 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 60 tablet 3 10/30/19 25 Active fluconazole (Diflucan) 200 MG tabletIndicati ons:Immunosupp ressed status (CMS/HCC) Take 2 tablets by mouth daily. 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 30 tablet 3 10/30/19 25 Active potassium chloride CR (K-Tab) 20 MEQ ER tablet Take 1 tablet by mouth twice daily 60 tablet 11/11/19 25 Active potassium chloride CR (K-Tab) 20 MEQ ER tablet Take 1 tablet by mouth twice daily 60 tablet 10/15/19 25 025 Discontinued Active Problems Problem Noted Date Diagnosed Date 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 Encounters Date Type Department Care Team Description 11/27/2024 Telephone [facility] Hematology/BMT and Cellular Therapy Program [address] [place] [address] [phone] Zonia Hoffman, SITE SAFETY MANAGER 11/26/2024 Travel 11/25/2024 Travel 11/24/2024 Travel 11/23/2024 Travel 11/22/2024 Travel 11/13/2024 Orders Only [facility] Hematology/BMT and Cellular Therapy Program [address] [place] [address] [phone] 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, 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) 11/12/2024 Travel 11/12/2024 Telephone [facility] Hematology/BMT and Cellular Therapy Program [address] [place] [address] [phone] Zonia Hoffman, SITE SAFETY MANAGER 11/11/2024 Travel 11/10/2024 Travel 11/09/2024 Travel 11/08/2024 Travel 11/08/2024 Refill [facility] Hematology/BMT and Cellular Therapy Program [address] [place] [address] [phone] New Mckinney MD 11/07/2024 Travel 10/29/2024 Refill [facility] Hematology/BMT and Cellular Therapy Program [address] [facility], [address] [place] [address] [place] [phone] Zonia Hoffman, SITE SAFETY MANAGER 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); Immunosuppressed status (CMS/HCC) 10/28/2024 Telephone [facility] Hematology/BMT and Cellular Therapy Program [facility], [address] [place] [address] [place] [phone] Zonia Hoffman, SITE SAFETY MANAGER 10/27/2024 Telephone [facility] Hematology/BMT and Cellular Therapy Program [facility], [address] [place] [address] [place] [address] Zonia Hoffman, SITE SAFETY MANAGER 10/27/2024 Travel 10/26/2024 Travel 10/24/2024 Travel 10/23/2024 Travel 10/22/2024 Travel 10/15/2024 Refill [facility] Hematology/BMT and Cellular Therapy Program [address] [phone] New Mckinney MD 10/14/2024 Refill [facility] Hematology/BMT and Cellular Therapy Program [address] [place] [address] New Mckinney MD 10/13/2024 Telephone [facility] Hematology/BMT and Cellular Therapy Program [address] [phone] Zonia Hoffman, SITE SAFETY MANAGER 10/13/2024 Travel 10/12/2024 Travel 10/11/2024 Travel 10/09/2024 Travel 10/08/2024 Travel 10/08/2024 Orders Only [facility] Hematology/BMT and Cellular Therapy Program [address] [place] [address] 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, 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) 10/07/2024 Travel 09/30/2024 9:30 AM EDT Office Visit [facility] Hematology/BMT and Cellular Therapy Program [facility], [address] [place] [address] [place] [phone] Zonia Hoffman APRN 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) 09/30/2024 9:00 AM EDT Clinical Support [facility] Hematology/BMT and Cellular Therapy Program [address] [facility], [address] [place] [phone] Jyoti Kemp 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) 09/30/2024 Telephone [facility] H[facility]ology/BMT and Cellular Therapy Program [address] [phone] Zoraida Good RN 09/30/2024 Travel 09/29/2024 Travel 09/28/2024 Travel 09/27/2024 Travel 09/26/2024 Travel 09/25/2024 Travel 09/24/2024 Travel 09/23/2024 Travel 09/19/2024 12:00 PM EDT Procedure Visit [facility] Hematology/BMT and Cellular Therapy Program [address] [phone] Lexi Ferraro APRN 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) 09/19/2024 9:30 AM EDT Clinical Support [facility] [address] [facility], [address] [place] [phone] 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) 09/19/2024 7:30 AM EDT Clinical Support [facility] Hematology/BMT and Cellular Therapy Program [address] [phone] 09/19/2024 Telephone [facility] H[facility]ology/BMT and Cellular Therapy Program [address] [phone] Romana Richmond RN 09/19/2024 Orders Only [facility] Hematology/BMT and Cellular Therapy Program [address] [phone] 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 RN 09/19/2024 Travel 09/15/2024 Telephone [facility]ology[facility]BMT and Cellular Therapy Program [facility] [place] [phone] Zonia Hoffman APRN 09/15/2024 Travel 09/14/2024 Travel 09/13/2024 Travel 09/12/2024 Travel 09/12/2024 Refill [facility]ology/BMT and Cellular Therapy Program [facility] [place] [address] New Mckinney MD 09/11/2024 Travel 09/10/2024 Travel from Last 3 Months Immunizations Immunization [...] and Cellular Therapy Program [address] [facility] [place] [address] 12/17/2024 10:00 AM EDT Office Visit [facility] Hematology/BMT and Cellular Therapy Program [address] [facility] [place] [address] New Mckinney MD [address] [facility] [address] [place] [address] 12/17/2024 11:30 AM EDT Appointment [facility] [address] [place] [address] 12/18/2024 3:00 PM EDT Appointment [facility] [address] [place] [address] 12/19/2024 3:00 PM EDT Appointment [facility] [address] [place] [address] 12/20/2024 3:00 PM EDT Appointment [facility] [address] [place] [address] 12/21/2024 3:00 PM EDT Appointment [facility] [address] [place] [address] 12/22/2024 3:00 PM EDT Appointment [facility] [address] [place] [address] 12/23/2024 3:00 PM EDT Appointment [facility] [address] [place] [address] Health Maintenance Due Date Last Done Comments [...] UKY-Zoster Vaccines (1 of 2) 05/16/2023 03/21/2023 [id number] Vaccine ( - season) 2023 02/18/2021, 07/10/2020, [...] this topic Medical Devices Implanted Type Area Gaming Director Device Identifier Shelf Expiration Date Model / Serial / Lot Port Clearvue Power 8fr - [id number] Implanted:Qty: 1 on 01/21/2024 by Ness Sargent MD at [facility] Peripherial [id number] / / Procedures Procedure Name Priority Date/Time [...] Res ult [facility] [address] [place] [address] * (ABNORMAL) Comprehensive Metabolic Panel, Plasma (09/30/2024 [...] APRN LAB BLOOD ORDERABLES Final Res ult [facility] [address] [place] [id number] * BIOPSY BONE MARROW (09/19/2024 12:00 PM [...] to surronding structures. Alternatives discussed: Delayed treatment [place] protocol: Procedure explained and questions answered to [...] at the site and an 11 gauge OfferSavvyshidi needle was inserted into the right posterior [...] (ABNORMAL) Platelet count (09/19/2024 10:04 AM EDT) [facility] Platelet Count 61(L) 155 - 369 10*3/uL LAB HEMATOLOGY METHOD 09/19/2024 10:19 AM EDT [facility] Blood Blood sample taken from central line / Unknown (Port) Long-term Catheter / Unknown 09/19/2024 10:04 AM EDT 09/19/2024 10:18 AM EDT New Mckinney MD LAB BLOOD ORDERABLES Final Re sult Performing Organization Address [facility] Co de Phone Number [facility] [address] [place] [address] * Transfuse platelets, Irradiated (09/19/2024 10:02 AM EDT) Lexi Ferraro APRN BLOOD TRANSFUSION ORDERABL ES Final Result * Prepare Leukocyte Reduced Platelets (09/19/2024 9:08 AM EDT) [facility] Product Code [id number] BLOO D BANK Dispense Status Transfused BLOOD BANK Blood Expiration Date [id number] BLOOD BANK Unit Number [id number] B LOOD BANK Product Blood Type 6200 BLOOD BANK Blood Type A+ BLOOD BANK us Provider Not In System BLOOD BANK PRODUCT ORD ERABLES Final Result Performing Organization Address [facility] de Phone Number BLOOD BANK [address] [place] [address], * Myeloid Focused Panel, 50 gene (09/19/2024 7:29 AM EDT) [facility] Interpretation The following two (2) genes, TP53 and DNMT3A, with persistent variants have been detected in this bone marrow specimen. The variant, p.[id number], in TP53 gene and the variant, p.[id number], in the RUNX 1 gene are not detectable at current cutoff and coverage established in this lab. Gene: TP53 Mutation: c.814G>A; p.Nfl770Gmc Allele Frequency (%): 37% (45% Dec 2023) ID: [id number] Gene: DNMT3A Mutation: c.1522delC; p.Njg770QgxnhUiz93 3 Allele Frequency (%): 36% (48% Dec 2023) Additional Details on Mutation Identified: Gene Transcript Genome Chrom Coordinate RefVar DNMT3A [id number] Hg19 2 [id number] delC TP53 [id number] Hg19 17 [id number] G>A 09/29/2024 4:05 PM EDT [facility] Methodology The following 50 genes [...] then sequenced on the Illumina NextSeq 2000 ([employer], [place]). A custom bioinformatics pipeline aligns [...] of hematologic malignancies. 09/29/2024 4:05 PM EDT [facility] Disclaimer This test was developed and its performance characteristics determined by the Clinical Molecular and Genomic Pathology Laboratory at the [facility]. It has not been cleared [...] clinical laboratory testing. 09/29/2024 4:05 PM EDT [facility] Pathologist Signature Reviewed by: Corey Tejada 09/29/2024 4:05 PM EDT [facility] Bone Marrow Specimen from bone marrow obtained by aspiration / Unknown Non-blood Collection / Unknown 09/19/2024 7:29 AM EDT 09/19/2024 12:03 PM EDT New Mckinney MD LAB MOLECULAR DIAGNOSTICS ORD ERABLES Final Result [facility] [address] [place] [address], * Chromosome Karyotype, Oncology (09/19/2024 7:29 AM EDT) Specimen Type Bone Marrow 09/24/2024 2:[address] [facility] Clinical Indication Myelodysplastic Syndrome 09/24/2024 2:[address] [facility] Specimen Adequacy Adequate 025 2:[address] [facility] Chromosome Analysis Result Giemsa-banded metaphase cells from unstimulated bone marrow cultures showed a 46,XX[20] chromosome pattern. 09/24/2024 2:[address] [facility] Interpretation Normal female chromosome analysis. No clonal abnormalities were detected at current resolution. Clinical correlation is recommended. # cells counted = 20 # cells analyzed = 20 # cells karyotyped = 2 Band resolution: 450-525 09/24/2024 2:37 PM EDT [facility] Pathologist Signature Reviewed by: Corey Tejada 09/24/2024 2:[address] [facility] Bone Marrow Non-blood Collection / Unknown 09/19/2024 7:29 AM EDT 09/19/2024 12:35 PM EDT us New Mckinney MD LAB CYTOGENETICS ORDERABLES F inal Result [facility] [address] [place] [address] * Leukemia/Lymphoma - Immunophenotyping by Flow Cytometry (09/19/2024 7:29 AM EDT) Clinical Indication AML 09/22/2024 10:[address] [facility] Flow Cytometry Interpretation A. BONE MARROW FOR FLOW CYTOMETRY: - MIXED MARROW ELEMENTS WITH NO EVIDENCE OF INCREASED BLASTS OR ABNORMAL LYMPHOID POPULATIONS, SEE COMMENT. 09/22/2024 10:[address] [facility] Comments CD45/side scatter analysis shows [...] surface light chains 09/22/2024 10:29 AM EDT [facility] Disclaimer This test was developed and its performance characteristics determined by the Immuno-Molecular Pathology Laboratory at the [facility]. It has not been cleared [...] the report. 09/22/2024 10:[address] [facility] Pathologist Signature Reviewed by: Lisandra Epstein MD 09/22/2024 10:[address] [facility] MRD Indicated Test Not Indicated 12/2024 10:[address] [facility] Bone Marrow Specimen from bone marrow obtained by aspiration / Unknown Non-blood Collection / Unknown 09/19/2024 7:29 AM EDT 09/19/2024 12:13 PM EDT us New Mckinney MD LAB FLOW CYTOMETRY ORDERABLES Final Result [facility] [address] [place] [address] * Bone marrow exam (09/19/2024 7:29 AM EDT) Case Report Bone Marrow Case: [id number] Authorizing Provider: New Mckinney MD Collected: 09/19/2024 0729 Ordering Location: [facility] Hematology/BMT and Received: 09/19/2024 1216 Cellular Therapy Program Pathologist: Lisandra Epstein MD Specimens: A) - Bone Marrow Aspirate, right B) - Bone Marrow Biopsy, right C) - Peripheral Blood for Bone Marrow 3:[address] [facility] Cytogenetics Report, Addendum Chromosome Analysis Result Giemsa-banded metaphase cells from unstimulated bone marrow cultures showed a 46,XX[20] chromosome pattern. Interpretation Normal female chromosome analysis. No clonal abnormalities were detected at current resolution. Clinical correlation is recommended. 3:[address] [facility] Addendum electronically signed by Lisandra Epstein MD on 09/24/2024 at 1630 EDT Addendum Interpretation The following two (2) genes, TP53 and DNMT3A, with persistent variants have been detected in this bone marrow specimen. The variant, p.Blw727Lys, in TP53 gene and the variant, p.Lwm607wgv, in the RUNX 1 gene are not detectable at current cutoff and coverage established in this lab. Gene: TP53 Mutation: c.814G>A; p.Rel155Zee Allele Frequency (%): 37% (45% Dec 2023) ID: [id number] Gene: DNMT3A Mutation: c.1522delC; p.Mdm145ZhfoaGhr2 43 Allele Frequency (%): 36% (48% Dec 2023) Additional Details on Mutation Identified: 3:[address] [facility] Addendum electronically signed by Lisandra Epstein MD on 09/30/2024 at 1515 EDT Final Diagnosis PERIPHERAL BLOOD AND BONE MARROW, RIGHT POSTERIOR ILIAC CREST, (ASPIRATE SMEAR, AND CORE BIOPSY): - HYPOCELLULAR BONE MARROW WITH MARKEDLY DECREASED MEGAKARYOCYTES; NO SIGNIFICANT DYSPOIESIS OR INCREASE IN BLASTS. 3:[address] [facility] at 1453 EDT Clinical Information AML 09/14 3:[address] [facility] CBC and Differential PERIPHERAL BLOOD: [...] are not seen. 3:[address] [facility] Bone Marrow Differential BONE MARROW DIFFERENTIAL: 200 cells Normal Patient Neutrophils 15-50 34 Metamyelocytes 4-19 3 Myelocytes 1-18 10 Promyelocytes 1-8 1 Blasts 0-2 1 Monocytes 0-5 4 Erythroid 16-38 22 Lymphocytes 3-24 13 Eosinophils 0-6 8 Basophils 0-2 0 Plasma cells 0-4 4 Other 5 3:[address] [facility] Bone Marrow Aspirate and Biopsy [...] are identified. Bone trabeculae are unremarkable. 5 3:15 PM EDT [facility] Special and Immunohistochemical Stains Special Stain: A1-1 Vazquez-Giemsa A1-2 Vazquez-Giemsa A1-3 Vazquez-Giemsa C1-1 Vazquez-Giemsa IHC: B1-2 CD34 All controls show appropriate reactivity. All immunohistochemis try, in situ hybridization, and histochemical tests were developed by and are performed at the [facility], [address] [place] [address]. All tests reported here, except those addressing [...] of false negativity on decalcified specimens. 5 3:15 PM EDT [facility] Flow Cytometry Interpretation MIXED MARROW ELEMENTS WITH NO EVIDENCE OF INCREASED BLASTS OR ABNORMAL LYMPHOID POPULATIONS ([id number]). 5 3:[address] [facility] CYTOGENETICS/MOLECULA R INTERPRETATION Correlation with cytogenetic/molec ular analysis is suggested. 5 3:[address] [facility] Gross Description B. RIGHT A single specimen is received in formalin labeled bone marrow biopsy right posterior iliac crest and consists of 2 piece(s) of red/white tissue measuring 2.1/0.3 cm in length 0.2 cm in diameter. The specimen is submitted in to Histology for decalcification and routine processing. Cold Time: <1m 3:[address] [facility] Note: A resident was involved in the service. I attest I examined the relevant preparations for the specimens and confirmed the diagnosis or interpretation. 3:[address] [facility] Bone Marrow Peripheral blood specimen [...] ed Result - Final Performing Organization Address [facility]/ZIP Co de Phone Number [facility] [address] [place] [address] * Hepatitis C Antibody w/Reflex to HCV Quant PCR (01/07/2024 8:42 AM EDT) Hepatitis C Antibody Negative Negative 01/07/2024 10:[address] [facility] Blood Venous blood specimen / Unknown Venipuncture / Unknown 01/07/2024 8:42 AM EDT 01/07/2024 9:25 AM EDT New Mckinney MD LAB BLOOD ORDERABLES Final Re sult Performing Organization Address City/[facility]/ZIP Co de Phone Number [facility] [address] [place] [address] from Last 3 Months or Most Recently Relevant to [place] [address] [place] [address] [facility] Care Teams Cardiac Cath Technologist Relationship Specialty Start Date End Date Jevon Vazquez MD [address] [place] [address] #1 #1 Julien JOSEP [id number] PCP - General 03/23/22
--- OUTSIDE RECORDS SUMMARY | 2024-12-04 09:19 | XMS_ITS | Clinical Summary ---
Author Organization [facility] Address [address] [place] [id number] Care Team Providers Care Gardening Manager Name Role Phone David Vazquez Primary Care Provider [phone] Allergies No known active allergies Medications atorvastatin [...] 1950 Diabetes Mellitus Foot Care (Yearly) 1950 FIT 1950 Lipid Monitoring 11/04/1967 Tetanus Vaccination (Every 10 Years) 1968 Hepatitis C Virus (HCV) Screening 11/04/1971 Breast Cancer Screening 2000 Pneumococcal Vaccine: 50+ Years (1 of 1 - PCV) 001 Zoster-RZV(Shingrix) (1 of 2) 2000 Fall Risk Assessment 11/04/2015 Osteoporosis Screening 11/04/2015 Diabetes A1c Monitoring 07/26/2023 01/24/2023 COVID-19 Vaccine ( season) 2023 Advance Care Planning 04/16/2024 Depression Screening 04/16/2024 Diabetes Mellitus Microalbumin (Yearly) 04/16/2024 Renal Monitoring 04/16/2024 01/24/2023 Influenza Vaccination (#1) 2024 RSV Vaccines (1 - 1-dose 75+ series) 2025 Medical Devices Implanted Type Area Active Directory Engineer Device Identifier Shelf Expiration Date Model / Serial / Lot Mis Ply Scr 6.5x50mm - [id number] Implanted:Qty : 1 on 01/30/2023 by Ivan Bartholomew MD at [facility] [place] Screw N/A: Spine Lumbar [employer] [id number] / / Mis Ply Scr 6.5x45mm - [id number] Implanted:Qty : 3 on 01/30/2023 by Ivan Bartholomew MD at [facility] [place] Screw N/A: Spine Lumbar [employer] [id number] / / Reline Mas Reduction Screw 7.5x45 - [id number] Implanted:Qty : 2 on 01/30/2023 by Ivan Bartholomew MD at [facility] [place] Screw N/A: Spine Lumbar [employer] [id number] / / Grft Dbm Vesuvius Putty 5cc - [id number] Implanted:Qty : 1 on 01/30/2023 by Ivan Bartholomew MD at [facility] [place] [employer] [id number] 04/20/2025 [id number] P / [id number] / Putty I-Factor 5.0cc - [id number] Implanted:Qty : 1 on 01/30/2023 by Ivan Bartholomew MD at [facility] [place] N/A: Spine Lumbar [employer] 03/15/2025 [id number] / / [id number] Modulus Xlw [id number] 10 Degree - [id number] Implanted:Qty : 1 on 01/30/2023 by Ivan Bartholomew MD at [facility] [place] N/A: Spine Lumbar [employer] [id number] / / [id number] Modulus Xlw [id number] - [id number] Implanted:Qty : 1 on 01/30/2023 by Ivan Bartholomew MD at [facility] [place] N/A: Spine Lumbar [employer] 09/28/2027 [id number] / / [id number] Reln Lock Scr 5.5mm Opn Tulip - [id number] Implanted:Qty : 6 on 01/30/2023 by Ivan Bartholomew MD at [facility] N/A: Spine Lumbar [employer] [id number] / / Reln Mas Ti Petar 5.5x70mm - [id number] Implanted:Qty : 2 on 01/30/2023 by Ivan Bartholomew MD at [facility] N/A: Spine Lumbar [employer] [id number] / / Procedures Procedure Name Priority Date/Time [...] Hgb A1C 6.0(H) 4.0 - 5.6 % [facility] Comment: Reference Ranges [...] Glycohemoglobin Standardization program (NGSP) and [facility] Estimated Average Glucose 126(H) 68 - 114 mg/dL [facility] Whole Blood (Blood) 01/24/2023 2:32 PM EDT 01/24/2023 6:00 PM EDT us Ivan Bartholomew MD CHEMISTRY ORDERABLES Fin al Result [facility] [address] * (ABNORMAL) BASIC METABOLIC PANEL (BMP=EP1) (01/24/2023 2:32 PM EDT) Sodium 141 135 - 146 mmol/L [facility] Potassium 4.8 3.5 - 5.1 mmol/L [facility] Chloride 107 98 - 110 mmol/L [facility] CO2 24 22 - 29 mmol/L [facility] Anion Gap 10 5 - 13 mmol/L [facility] Comment:Anion gap calculatio n does not include potassium (K+) value. BUN 17 7 - 25 mg/dL [facility] Creatinine 1.20 0.50 - 1.20 mg/dL [facility] Glucose 125(H) 71 - 99 mg/dL [facility] Comment:Reference range (71- 99 mg/dL) refers only to fasting samples, and does not apply to non-fasting samples. eGFR CKD-EPI 2020 48 See Note [facility] Comment: eGFR calculated with 2020 CKD-EPI equation using creatinine, patient's age and gender. Other factors, especially muscle mass, may affect accuracy and need to be considered. Patient values should be interpreted as a trend. The reference interval is >60 mL/min/1.73m2. Calcium 10.3 8.5 - 10.5 mg/dL [facility] BUN/Creatinine Ratio 14 [facility] Serum 01/24/2023 2:32 PM EDT 01/24/2023 5:54 PM EDT us Lexi SUAREZ CHEMISTRY ORDERABLES Final Resu lt [facility] [address] from Last 3 Months or Most Recently Relevant to Health Maintenance Insurance MEDICARE PART A [facility] [address] [address] [place] [address] ANTH Advance Directives For more information, please contact: [phone] * Full Code (Latest Code Status on File) Date Activated Date Inactivated Comments 01/30/2023 9:13 AM No automated chest compression devices for [facility] Patients Care Teams Gardening Manager Relationship Specialty Start Date End Date David Vazquez [address] [place] [phone] PCP - General 01/24/23
--- OUTSIDE RECORDS SUMMARY | 2024-12-04 09:19 | XMS_ITS | Encounter Summary ---
Author Organization [facility] Address [address] [place] [address] Care Team Providers Care Community Health Program Representative Name Role Phone Jevon Vazquez MD Primary Care Provider [phone] Reason for Visit * Reason Comments Med Refill Encounter Details Date Type Department Care Team ([facility] Contact Info) Description 10/15/2024 Refill [facility] Hematology/BMT and Cellular Therapy Program [address] [phone] New Mckinney MD 800 [facility] [address] [place] [phone] Social History Tobacco Use Types Packs/Day Years [...] [facility] [place] Contact Info) Description 12/17/2024 9:30 AM EDT Clinical Support [facility] Hematology/BMT and Cellular Therapy Program [address] [address] 12/17/2024 10:00 AM EDT Office Visit [facility] Hematology/BMT and Cellular Therapy Program [address] [address] New Mckinney MD [address] [facility] [address] [place] [address] 12/17/2024 11:30 AM EDT Appointment [facility] 2 [address] [place] [address] 12/18/2024 3:00 PM EDT Appointment [facility] 1 [address] [place] [address] 12/19/2024 3:00 PM EDT Appointment [facility] 2 [address] [place] [address] 12/20/2024 3:00 PM EDT Appointment [facility] 2 [address] [place] [address] 12/21/2024 3:00 PM EDT Appointment [facility] 2 [address] [place] [address] 12/22/2024 3:00 PM EDT Appointment [facility] 2 [address] [place] [address] 12/23/2024 3:00 PM EDT Appointment [facility] 2 [address] [place] [address] documented as of this encounter Visit Diagnoses Not on filedocumented in this encounter Additional Health Concerns Assessment Noted Time A fall risk assessment has been complete d for the patient 09/30/2024 9:33 AM EDT A Body Mass Index follow-up plan has been documented for the patient 05/28/2024 1:52 PM EST documented as of this encounter Care Teams Community Health Program Representative Relationship Specialty Start Date End Date Jevon Vazquez MD [address] [place] [address] #1 #1 [place] [address] PCP - General 03/23/22 documented as of this encounter
--- OUTSIDE RECORDS SUMMARY | 2024-12-04 09:19 | XMS_ITS | Encounter Summary ---
Author Organization Healthcare Address [address] [place] [address] Care Team Providers Care Gum Machine Filler Name Role Phone Jevon Vazquez MD Primary Care Provider [phone] Encounter Details Date Type Department Care Team [...] Hematology/BMT and Cellular Therapy Program [address] [address] 12/17/2024 10:00 AM EDT Office Visit [facility] Hematology/BMT and Cellular Therapy Program [address] [place] [address] New Mckinney MD 800 [facility] [address] [place] [address] 12/17/2024 11:30 AM EDT Appointment [facility] 2 [address] [place] [address] 12/18/2024 3:00 PM EDT Appointment [facility] 1 [address] [place] [address] 12/19/2024 3:00 PM EDT Appointment [facility] 2 [address] [place] [address] 12/20/2024 3:00 PM EDT Appointment [facility] 2 [address] [place] [address] 12/21/2024 3:00 PM EDT Appointment [facility] 2 [address] [place] [address] 12/22/2024 3:00 PM EDT Appointment [facility] 2 [address] [place] [address] 12/23/2024 3:00 PM EDT Appointment [facility] 2 [address] [place] [address] documented as of this encounter Visit Diagnoses Not on filedocumented in this encounter Additional Health Concerns Assessment Noted Time A fall risk assessment has been complete d for the patient 09/30/2024 9:33 AM EDT A Body Mass Index follow-up plan has been documented for the patient 05/28/2024 1:52 PM EST documented as of this encounter Care Teams Gum Machine Filler Relationship Specialty Start Date End Date Jevon Vazquez MD [address] [place] [address] #1 [address]1 [place] [address] PCP - General 03/23/22 documented as of this encounter
--- OUTSIDE RECORDS SUMMARY | 2024-12-04 09:19 | XMS_ITS | Encounter Summary ---
Author Organization Healthcare Address [address] [place] [address] Care Team Providers Care Family Day Care Worker Name Role Phone Jevon Vazquez MD Primary Care Provider [phone] Encounter Details Date Type Department Care Team [...] Hematology/BMT and Cellular Therapy Program [address] [address] 12/17/2024 10:00 AM EDT Office Visit [facility] Hematology/BMT and Cellular Therapy Program [address] [place] [address] New Mckinney MD 800 [facility] [address] [place] [address] 12/17/2024 11:30 AM EDT Appointment [facility] 2 [address] [place] [address] 12/18/2024 3:00 PM EDT Appointment [facility] 1 [address] [place] [address] 12/19/2024 3:00 PM EDT Appointment [facility] 2 [address] [place] [address] 12/20/2024 3:00 PM EDT Appointment [facility] 2 [address] [place] [address] 12/21/2024 3:00 PM EDT Appointment [facility] 2 [address] [place] [address] 12/22/2024 3:00 PM EDT Appointment [facility] 2 [address] [place] [address] 12/23/2024 3:00 PM EDT Appointment [facility] 2 [address] [place] [address] documented as of this encounter Visit Diagnoses Not on filedocumented in this encounter Additional Health Concerns Assessment Noted Time A fall risk assessment has been complete d for the patient 09/30/2024 9:33 AM EDT A Body Mass Index follow-up plan has been documented for the patient 05/28/2024 1:52 PM EST documented as of this encounter Care Teams Family Day Care Worker Relationship Specialty Start Date End Date Jevon Vazquez MD [address] [place] [address] #1 [address]1 [place] [address] PCP - General 03/23/22 documented as of this encounter
--- OUTSIDE RECORDS SUMMARY | 2024-12-04 09:20 | XMS_ITS | Encounter Summary ---
Author Organization Healthcare Address [address] [place] [address] Care Team Providers Care Rubber Goods Finisher Name Role Phone Jevon Vazquez MD Primary Care Provider [phone] Encounter Details Date Type Department Care Team [...] Hematology/BMT and Cellular Therapy Program [address] [address] 12/17/2024 10:00 AM EDT Office Visit [facility] CC Hematology/BMT and Cellular Therapy Program [address] [place] [address] New Mckinney MD 800 [facility] [address] [place] [address] 12/17/2024 11:30 AM EDT Appointment [facility] 2 7[address] [place] [address] 12/18/2024 3:00 PM EDT Appointment [facility] 1 [address] [place] [address] 12/19/2024 3:00 PM EDT Appointment [facility] 2 [address] [place] [address] 12/20/2024 3:00 PM EDT Appointment [facility] 2 [address] [place] [address] 12/21/2024 3:00 PM EDT Appointment [facility] 2 [address] [place] [address] 12/22/2024 3:00 PM EDT Appointment [facility] 2 [address] [place] [address] 12/23/2024 3:00 PM EDT Appointment [facility] 2 [address] [place] [address] documented as of this encounter Visit Diagnoses Not on filedocumented in this encounter Additional Health Concerns Assessment Noted Time A fall risk assessment has been complete d for the patient 09/30/2024 9:33 AM EDT A Body Mass Index follow-up plan has been documented for the patient 05/28/2024 1:52 PM EST documented as of this encounter Care Teams Rubber Goods Finisher Relationship Specialty Start Date End Date Jevon Vazquez MD [address] [place] [address] #1 #1 [place] [address] PCP - General 03/23/22 documented as of this encounter
--- OUTSIDE RECORDS SUMMARY | 2024-12-04 09:20 | XMS_ITS | Encounter Summary ---
Author Organization [facility] Address [address] [place] [address] Care Team Providers Care Health Information Systems Technician Name Role Phone Jevon Vazquez MD Primary Care Provider [phone] Encounter Details Date Type Department Care Team ([facility] Contact Info) Description 10/08/2024 Orders Only [facility] CC Hematology/BMT and Cellular Therapy Program [address] [phone] 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 RN [facility] Acute myeloid [...] Hematology/BMT and Cellular Therapy Program [address] [address] 12/17/2024 10:00 AM EDT Office Visit [facility] CC Hematology/BMT and Cellular Therapy Program [address] [phone] New Mckinney MD 800 [facility] [address] [place] [address] 12/17/2024 11:30 AM EDT Appointment [facility] 2 [address] [place] [address] 12/18/2024 3:00 PM EDT Appointment [facility] 1 [address] [place] [address] 12/19/2024 3:00 PM EDT Appointment [facility] 2 [address] [place] [address] 12/20/2024 3:00 PM EDT Appointment [facility] 2 [address] [place] [address] 12/21/2024 3:00 PM EDT Appointment [facility] 2 [address] [place] [address] 12/22/2024 3:00 PM EDT Appointment [facility] 2 [address] [place] [address] 12/23/2024 3:00 PM EDT Appointment [facility] 2 [address] [place] [address] Scheduled Orders Name Type Priority Associated Diagnoses [...] as of this encounter Care Teams Health Information Systems Technician Relationship Specialty Start Date End Date Jevon Vazquez MD [address] [place] [address] #1 #1 [place] [address] PCP - General 03/23/22 documented as of this encounter
--- OUTSIDE RECORDS SUMMARY | 2024-12-04 09:20 | XMS_ITS | Encounter Summary ---
Author Organization Healthcare Address [address] [place] [address] Care Team Providers Care Branch Specialist Name Role Phone Jevon Vazquez MD Primary Care Provider [phone] Encounter Details Date Type Department Care Team [...] Hematology/BMT and Cellular Therapy Program [address] [address] 12/17/2024 10:00 AM EDT Office Visit [facility] CC Hematology/BMT and Cellular Therapy Program [address] [place] [address] New Mckinney MD 800 [facility] [address] [place] [address] 12/17/2024 11:30 AM EDT Appointment [facility] 2 [address] [place] [address] 12/18/2024 3:00 PM EDT Appointment [facility] 1 [address] [place] [address] 12/19/2024 3:00 PM EDT Appointment [facility] 2 [address] [place] [address] 12/20/2024 3:00 PM EDT Appointment [facility] 2 [address] [place] [address] 12/21/2024 3:00 PM EDT Appointment [facility] 2 [address] [place] [address] 12/22/2024 3:00 PM EDT Appointment [facility] 2 [address] [place] [address] 12/23/2024 3:00 PM EDT Appointment [facility] 2 [address] [place] [address] documented as of this encounter Visit Diagnoses Not on filedocumented in this encounter Additional Health Concerns Assessment Noted Time A fall risk assessment has been complete d for the patient 09/30/2024 9:33 AM EDT A Body Mass Index follow-up plan has been documented for the patient 05/28/2024 1:52 PM EST documented as of this encounter Care Teams Branch Specialist Relationship Specialty Start Date End Date Jevon Vazquez MD [address] [place] [address] #1 #1 [place] [address] PCP - General 03/23/22 documented as of this encounter
--- OUTSIDE RECORDS SUMMARY | 2024-12-04 09:20 | XMS_ITS | Encounter Summary ---
Author Organization Healthcare Address [address] [place] [address] Care Team Providers Care Chartered Financial Analyst Name Role Phone Jevon Vazquez MD Primary Care Provider [phone] Encounter Details Date Type Department Care Team [...] Hematology/BMT and Cellular Therapy Program [address] [address] 12/17/2024 10:00 AM EDT Office Visit [facility] CC Hematology/BMT and Cellular Therapy Program [address] [place] [address] New Mckinney MD 800 [facility] [address] [place] [address] 12/17/2024 11:30 AM EDT Appointment [facility] 2 [address] [place] [address] 12/18/2024 3:00 PM EDT Appointment [facility] 1 [address] [place] [address] 12/19/2024 3:00 PM EDT Appointment [facility] 2 [address] [place] [address] 12/20/2024 3:00 PM EDT Appointment [facility] 2 [address] [place] [address] 12/21/2024 3:00 PM EDT Appointment [facility] 2 [address] [place] [address] 12/22/2024 3:00 PM EDT Appointment [facility] 2 [address] [place] [address] 12/23/2024 3:00 PM EDT Appointment [facility] 2 [address] [place] [address] documented as of this encounter Visit Diagnoses Not on filedocumented in this encounter Additional Health Concerns Assessment Noted Time A fall risk assessment has been complete d for the patient 09/30/2024 9:33 AM EDT A Body Mass Index follow-up plan has been documented for the patient 05/28/2024 1:52 PM EST documented as of this encounter Care Teams Chartered Financial Analyst Relationship Specialty Start Date End Date Jevon Vazquez MD [address] [place] [address] #1 #1 [place] [address] PCP - General 03/23/22 documented as of this encounter
--- OUTSIDE RECORDS SUMMARY | 2024-12-04 09:20 | XMS_ITS | Clinical Summary ---
Author Organization [facility] Address [address] [place] [address] Phone Care Team Providers Care Distribution Engineer Name Role Phone Jevon Vazquez MD Primary Care Provider [phone] Allergies Active Allergy Reactions Criticality Noted Date [...] Surgeon: Ivan Bartholomew MD; Location: [facility] MAIN OR; Service: Spine Medical History Medical [...] 5.6 % 11/14/2022 2:57 PM EDT PREFERRED [employer] Est. Avg Glucose 148 mg/dL 11/14/2022 2:57 PM EDT [place], [facility] Blood VENOUS BLOOD / Unknown Venipuncture / Unknown 11/11/2022 3:46 PM EDT 11/11/2022 3:55 PM EDT Narrative [facility] - 11/14/2022 2:57 PM [...] Maloney DO CHEMISTRY ORDERABLES Final R esult [facility] [employer] [facility] [address] [facility] , [address] [place] [id number] * (ABNORMAL) BASIC METABOLIC PANEL (11/11/2022 3:46 PM EDT) Sodium 136 136 - 145 mmol/L 11/11/2022 4:11 PM EDT [facility] Potassium 3.8 3.5 - 5.0 mmol/L 11/11/2022 4:11 PM EDT [facility] Chloride 102 98 - 107 mmol/L 11/11/2022 4:11 PM EDT [facility] Total CO2 24 22 - 29 mmol/L 11/11/2022 4:11 PM EDT [facility] Anion Gap 10 7 - 16 mmol/L 11/11/2022 4:11 PM EDT [facility] Calcium 10.1 8.8 - 10.4 mg/dL 11/11/2022 4:11 PM EDT [facility] Glucose Lvl 147(H) 82 - 100 mg/dL 11/11/2022 4:11 PM EDT [facility] BUN 15 8 - 23 mg/dL 11/11/2022 4:11 PM EDT [facility] Creatinine 0.82 0.51 - 1.30 mg/dL 11/11/2022 4:11 PM EDT [facility] eGFR (CKD-EPIcr 2020) 76 >=60 mL/min/1.7 3 m2 11/11/2022 4:11 PM EDT [facility] Comment:Estimated GFR was ca lculated using the CKD-EPIcr (2020) equation refit without race. The equation is recommended by the National Kidney Foundation - [place] [employer] of Nephrology Task Force. Blood VENOUS BLOOD / Unknown Venipuncture / Unknown 11/11/2022 3:46 PM EDT 11/11/2022 3:54 PM EDT us Leona Hanna DO CHEMISTRY ORDERABLES Final Res ult [facility] [address] [place] [address] * DX BONE DENSITY AXIAL SKELETON (07/25/2022 9:14 AM EDT) Anatomical Region Laterality Modality Dexa Scan 07/25/2022 Narrative 07/25/2022 3:45 PM EDT Indication: The patient is a female age 65 or older who requires a bone density assessment. Study was performed on salgomed 5. Bone Density: Region BMD T-score Z-score [...] Insurance [place] [address] [place] [address] MEDICARE SUPPLEMENT MEDICARE [place] PART A AND B Member Subscriber Plan / Payer (Ef fective 2016-Present) Name:Ashly Hernández Member ID:[id number] Relation to Subscriber:Self Name:Ashly Hernández Subscriber ID:[id number] Payer ID:Not on file Group ID:Not on file Type:Not on file Address: [address] MEDICARE SUPPLEMENT [place]ARE [place] PART A & B [place]ARE [place] PART A AND B Member Subscriber Plan / Payer (Ef fective 2016-Present) Name:Ashly Hernández Member ID:[id number] Relation to Subscriber:Self Name:Ashly Hernández Subscriber ID:[id number] Payer ID:Not on file Group ID:Not on file Type:Not on file Address: [address] MEDICARE SUPPLEMENT [employer] MEDICARE [place] PART A AND B [address] MEDICARE SUPPLEMENT Advance Directives For more information, please contact: [phone] * Full Code (Latest Code Status on File) Date Activated Date Inactivated Comments 11/14/2022 6:53 PM 11/16/2022 7:37 PM * Full Code Date Activated Date Inactivated Comments 11/12/2022 5:17 AM 11/14/2022 6:47 PM Care Teams Distribution Engineer Relationship Specialty Start Date End Date Jevon Vazquez MD [address] [place] [address] PCP - General Family Medicine 11/10/22
--- OUTSIDE RECORDS SUMMARY | 2024-12-04 09:20 | XMS_ITS | Encounter Summary ---
Author Organization [facility] Address [address] [place] [address] Care Team Providers Care Oxidation Operator Name Role Phone Jevon Vazquez MD Primary Care Provider [phone] Encounter Details Date Type Department Care Team ([facility] Contact Info) Description 11/12/2024 Telephone [facility] CC Hematology/BMT and Cellular Therapy Program [address] [address] Zonia Hoffman, HARVEST FIELD TICKETER 800 [facility] [address] [place] [address] Social History Tobacco Use Types Packs/Day Years [...] Hematology/BMT and Cellular Therapy Program [address] [place] [address] 12/17/2024 10:00 AM EDT Office Visit PAV Hematology/BMT and Cellular Therapy Program [address] [place] [address] New Mckinney MD 800 [facility] [address] [place] [address] 12/17/2024 11:30 AM EDT Appointment [facility] 2 [address] [place] [address] 12/18/2024 3:00 PM EDT Appointment [facility] 1 [address] [place] [address] 12/19/2024 3:00 PM EDT Appointment [facility] 2 [address] [place] [address] 12/20/2024 3:00 PM EDT Appointment [facility] 2 [address] [place] [address] 12/21/2024 3:00 PM EDT Appointment [facility] 2 [address] [place] [address] 12/22/2024 3:00 PM EDT Appointment [facility] Infusion Clinic 2 [address] [place] [address] 12/23/2024 3:00 PM EDT Appointment [facility] 2 [address] [place] [address] documented as of this encounter Visit Diagnoses Not on filedocumented in this encounter Additional Health Concerns Assessment Noted Time A fall risk assessment has been complete d for the patient 09/30/2024 9:33 AM EDT A Body Mass Index follow-up plan has been documented for the patient 05/28/2024 1:52 PM EST documented as of this encounter Care Teams Oxidation Operator Relationship Specialty Start Date End Date Jevon Vazquez MD [address] [place] [address] #1 #1 [place] [address] PCP - General 03/23/22 documented as of this encounter
--- OUTSIDE RECORDS SUMMARY | 2024-12-04 09:20 | XMS_ITS | Encounter Summary ---
Author Organization Healthcare Address [address] [place] [address] Care Team Providers Care Chief Deputy Sheriff Name Role Phone Jevon Vazquez MD Primary Care Provider [phone] Encounter Details Date Type Department Care Team [...] Hematology/BMT and Cellular Therapy Program [address] [address] 12/17/2024 10:00 AM EDT Office Visit [facility] CC Hematology/BMT and Cellular Therapy Program [address] [place] [address] New Mckinney MD 800 [facility] [address] [place] [address] 12/17/2024 11:30 AM EDT Appointment [facility] 2 [address] [place] [address] 12/18/2024 3:00 PM EDT Appointment [facility] 1 [address] [place] [address] 12/19/2024 3:00 PM EDT Appointment [facility] 2 [address] [place] [address] 12/20/2024 3:00 PM EDT Appointment [facility] 2 [address] [place] [address] 12/21/2024 3:00 PM EDT Appointment [facility] 2 [address] [place] [address] 12/22/2024 3:00 PM EDT Appointment [facility] 2 [address] [place] [address] 12/23/2024 3:00 PM EDT Appointment [facility] 2 [address] [place] [address] documented as of this encounter Visit Diagnoses Not on filedocumented in this encounter Additional Health Concerns Assessment Noted Time A fall risk assessment has been complete d for the patient 09/30/2024 9:33 AM EDT A Body Mass Index follow-up plan has been documented for the patient 05/28/2024 1:52 PM EST documented as of this encounter Care Teams Chief Deputy Sheriff Relationship Specialty Start Date End Date Jevon Vazquez MD [address] [place] [address] #1 #1 [place] [address] PCP - General 03/23/22 documented as of this encounter
--- OUTSIDE RECORDS SUMMARY | 2024-12-04 09:20 | XMS_ITS | Encounter Summary ---
Author Organization [facility] Address [address] [place] [address] Care Team Providers Care Fisher Oyster Name Role Phone Jevon Vazquez MD Primary Care Provider [phone] Encounter Details Date Type Department Care Team ([facility] Contact Info) Description 11/13/2024 Orders Only [facility] Hematology/BMT and Cellular Therapy Program [address] [phone] 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 RN [facility] Acute myeloid leukemia [...] Hematology/BMT and Cellular Therapy Program [address] [address] 12/17/2024 10:00 AM EDT Office Visit [facility] CC Hematology/BMT and Cellular Therapy Program [address] [phone] New Mckinney MD 800 [facility] [address] [place] [address] 12/17/2024 11:30 AM EDT Appointment [facility] 2 [address] [place] [address] 12/18/2024 3:00 PM EDT Appointment [facility] 1 [address] [place] [address] 12/19/2024 3:00 PM EDT Appointment [facility] 2 [address] [place] [address] 12/20/2024 3:00 PM EDT Appointment [facility] 2 [address] [place] [address] 12/21/2024 3:00 PM EDT Appointment [facility] 2 [address] [place] [address] 12/22/2024 3:00 PM EDT Appointment [facility] 2 [address] [place] [address] 12/23/2024 3:00 PM EDT Appointment [facility] 2 [address] [place] [address] Scheduled Orders Name Type Priority Associated Diagnoses [...] as of this encounter Care Teams Fisher Oyster Relationship Specialty Start Date End Date Jevon Vazquez MD [address] [place] [address] #1 #1 [place] [address] PCP - General 03/23/22 documented as of this encounter
[2024-12-04 09:26] LABS: Alanine Aminotransferase 13 U/L (12-78); Albumin Level 3.5 g/dl (3.5-5.0); Albumin/Globulin Ratio 1.6 (1.1-1.8); Alkaline Phosphatase 44 U/L (38-126); Anion Gap 10.9 mEq/L (5-15); Aspartate Amino Transferase 33 U/L (14-36); Bilirubin,Total 0.3 mg/dl (0.2-1.3); Blood Urea Nitrogen 25 mg/dl (7-17); Calcium 9.4 mg/dl (8.4-10.2); Carbon Dioxide 23 mmol/L (22.0-30.0); Chloride 108 mmol/L (98-107); Creatinine Clearance Estimated 41 mL/min (50-200); Creatinine,Serum 1.10 mg/dl (0.52-1.04); Estimated Glomerular Filt Rate 49 ml/min (>60); GFR (African American) 59 ML/MIN (>60); Globulin 2.2 g/dL (1.3-3.2); Glucose 132 mg/dl (74-100); Potassium 3.9 mmoL/L (3.5-5.1); Sodium 138 mmol/L (136-145); Total Protein,Serum 5.7 g/dl (6.3-8.2)
[2024-12-04 10:04] LABS: Macrocytosis 1+; Total Cells Counted 25
[2024-12-04] MEDS: ACETAMINOPHEN 325MG TAB 650 MG PO (12:30)
[2024-12-04] MEDS: 0.9 % SODIUM CHLORIDE 250 ML 25 ML IV (14:48)
--- NOTE | 2024-12-04 14:50 | PC.NURSE ---
1300- Due to [employer] being down, blood verification was done in lab with this RN and Tootie watson. PT name, and M number, blood type and unit number verified. Blood unit verified in infusion prior to admin between this RN and AKBAR Hernandez. pt name, , M number, blood type and unit number double verified. Unit started at 1305 and completed at 1448.
[2024-12-04] MEDS: SODIUM CHLORIDE 0.9% 10ML FLUSH SYRINGE 10 ML IV (15:50)
== END 2024-12-04 16:02 | disposition home or self-care (01) ==
LOC: INF 08:57
PROVIDERS: PCP Family Medicine; Visit Provider Internal Medicine Medical Oncology
DX: C92.00 Acute myeloblastic leukemia, not having achieved remission (principal)
CPT/HCPCS: 36430; 80053; 85007; 85025; 85027; 86850; J1642; J7050; P9016

== ENCOUNTER 2024-12-08 09:06 | Outpatient (RCR) | payer MEDICARE, BC, SELFPAY ==
[2024-12-08 09:25] LABS: Hematocrit 27.2 % (37.0-47.0); Hemoglobin 9.4 g/dL (12.2-16.2); Immature Granulocytes % 0.5 %; Mean Corpuscular HGB Conc 34.6 g/dL (31.8-35.4); Mean Corpuscular Hemoglobin 33.9 pg (27.0-31.2); Mean Corpuscular Volume 98.2 fl (81-99); Nucleated Red Blood Cells % 0 %; Red Blood Count 2.77 M/mm3 (4.20-5.40); Red Cell Distribution Width-SD 79.7 fL
[2024-12-08 09:29] LABS: Albumin Level 3.6 g/dl (3.5-5.0); Chloride 109 mmol/L (98-107); Potassium 3.8 mmoL/L (3.5-5.1); Sodium 141 mmol/L (136-145)
[2024-12-08 09:32] LABS: Alanine Aminotransferase 11 U/L (12-78); Albumin/Globulin Ratio 1.6 (1.1-1.8); Alkaline Phosphatase 45 U/L (38-126); Anion Gap 11.8 mEq/L (5-15); Aspartate Amino Transferase 36 U/L (14-36); Bilirubin,Total 0.4 mg/dl (0.2-1.3); Blood Urea Nitrogen 26 mg/dl (7-17); Calcium 9.3 mg/dl (8.4-10.2); Carbon Dioxide 24 mmol/L (22.0-30.0); Creatinine,Serum 1.00 mg/dl (0.52-1.04); Estimated Glomerular Filt Rate 54 ml/min (>60); GFR (African American) 66 ML/MIN (>60); Globulin 2.3 g/dL (1.3-3.2); Glucose 116 mg/dl (74-100); Platelet Count 13 K/mm3 (142-424); Total Protein,Serum 5.9 g/dl (6.3-8.2); White Blood Count 1.9 K/mm3 (4.8-10.8)
[2024-12-08] MEDS: SODIUM CHLORIDE 0.9% 10ML FLUSH SYRINGE 10 ML IV (09:40)
[2024-12-08 11:08] LABS: RBC Morphology Normal; Total Cells Counted 50
== END 2024-12-08 09:45 | disposition home or self-care (01) ==
LOC: INF 09:06
PROVIDERS: PCP Family Medicine; Visit Provider Internal Medicine Medical Oncology
DX: C92.00 Acute myeloblastic leukemia, not having achieved remission (principal)
CPT/HCPCS: 36591; 80053; 85007; 85025; 85027; J1642

== ENCOUNTER 2024-12-11 08:56 | Outpatient (CLI) | payer MEDICARE, BC, SELFPAY ==
[2024-12-11] VITALS (7 sets, daily range): BP systolic 123–147; BP diastolic 51–78; PULSE 76–80; RESP 14–16; TEMP 36.6–36.7; O2SAT 99–100; BMI 21.8
--- OUTSIDE RECORDS SUMMARY | 2024-12-11 09:02 | XMS_ITS | Encounter Summary ---
Author Organization [facility] Address [address] [place] [address] Care Team Providers Care Parts Technician Name Role Phone Jevon Vazquez MD Primary Care Provider [phone] Encounter Details Date Type Department Care Team ([facility] Contact Info) Description 10/29/2024 Refill P[facility] CC Hematology/BMT and Cellular Therapy Program [address] [address] Zonia Hoffman, CORRECTIONS OFFICER 800 [facility] [address] [place] [phone] Acute myeloid leukemia not having achieved remission [...] Team ([facility] Contact Info) Description 12/17/2024 9:30 AM EDT Clinical Support PAV CC Hematology/BMT and Cellular Therapy Program [address] [address] 12/17/2024 10:00 AM EDT Office Visit P[facility] CC Hematology/BMT and Cellular Therapy Program [address] [place] [address] New Mckinney MD [address] [facility] [address] [place] [address] 12/17/2024 11:30 AM EDT Appointment [facility] 2 [address] [place] [address] 12/18/2024 3:00 PM EDT Appointment [facility] 1 [address] [place] [address] 12/19/2024 3:00 PM EDT Appointment [facility] 2 [address] [place] [address] 12/20/2024 3:00 PM EDT Appointment [facility] 2 [address] [place] [address] 12/21/2024 3:00 PM EDT Appointment [facility] 2 [address] [place] [address] 12/22/2024 3:00 PM EDT Appointment [facility] 2 [address] [place] [address] 12/23/2024 3:00 PM EDT Appointment [facility] 2 [address] [place] [address] documented as of this encounter Visit Diagnoses [...] documented as of this encounter Care Teams Parts Technician Relationship Specialty Start Date End Date Jevon Vazquez MD [address] [place] [address] #1 #1 [place] [address] PCP - General 03/23/22 documented as of this encounter
--- OUTSIDE RECORDS SUMMARY | 2024-12-11 09:02 | XMS_ITS | Encounter Summary ---
Author Organization Healthcare Address [address] [place] [address] Care Team Providers Care Line Builder Name Role Phone Jevon Vazquez MD Primary Care Provider [phone] Encounter Details Date Type Department Care Team [...] Hematology/BMT and Cellular Therapy Program [address] [address] 12/17/2024 10:00 AM EDT Office Visit PAV CC Hematology/BMT and Cellular Therapy Program [address] [place] [address] New Mckinney MD 800 [facility] [address] [place] [address] 12/17/2024 11:30 AM EDT Appointment [facility] 2 [address] [place] [address] 12/18/2024 3:00 PM EDT Appointment [facility] 1 [address] [place] [address] 12/19/2024 3:00 PM EDT Appointment [facility] 2 [address] [place] [address] 12/20/2024 3:00 PM EDT Appointment [facility] 2 [address] [place] [address] 12/21/2024 3:00 PM EDT Appointment [facility] 2 [address] [place] [address] 12/22/2024 3:00 PM EDT Appointment [facility] 2 [address] [place] [address] 12/23/2024 3:00 PM EDT Appointment [facility] 2 [address] [place] [address] documented as of this encounter Visit Diagnoses Not on filedocumented in this encounter Additional Health Concerns Assessment Noted Time A fall risk assessment has been complete d for the patient 09/30/2024 9:33 AM EDT A Body Mass Index follow-up plan has been documented for the patient 05/28/2024 1:52 PM EST documented as of this encounter Care Teams Line Builder Relationship Specialty Start Date End Date Jevon Vazquez MD [address] [place] [address] #1 #1 [place] [address] PCP - General 03/23/22 documented as of this encounter
--- OUTSIDE RECORDS SUMMARY | 2024-12-11 09:02 | XMS_ITS | Encounter Summary ---
Author Organization Healthcare Address [address] [place] [address] Care Team Providers Care Professional Bass Fisher Name Role Phone Jevon Vazquez MD Primary Care Provider [phone] Encounter Details Date Type Department Care Team (Latest Contact Info) Description 12/10/2024 Travel Social History Tobacco Use Types Packs/Day [...] Hematology/BMT and Cellular Therapy Program [address] [address] 12/17/2024 10:00 AM EDT Office Visit PAV CC Hematology/BMT and Cellular Therapy Program [address] [place] [address] New Mckinney MD 800 [facility] [address] [place] [address] 12/17/2024 11:30 AM EDT Appointment [facility] 2 [address] [place] [address] 12/18/2024 3:00 PM EDT Appointment [facility] 1 [address] [place] [address] 12/19/2024 3:00 PM EDT Appointment [facility] 2 [address] [place] [address] 12/20/2024 3:00 PM EDT Appointment [facility] 2 [address] [place] [address] 12/21/2024 3:00 PM EDT Appointment [facility] 2 [address] [place] [address] 12/22/2024 3:00 PM EDT Appointment [facility] 2 [address] [place] [address] 12/23/2024 3:00 PM EDT Appointment [facility] 2 [address] [place] [address] documented as of this encounter Visit Diagnoses Not on filedocumented in this encounter Additional Health Concerns Assessment Noted Time A fall risk assessment has been complete d for the patient 09/30/2024 9:33 AM EDT A Body Mass Index follow-up plan has been documented for the patient 05/28/2024 1:52 PM EST documented as of this encounter Care Teams Professional Bass Fisher Relationship Specialty Start Date End Date Jevon Vazquez MD [address] [place] [address] #1 [address]1 [place] [address] PCP - General 03/23/22 documented as of this encounter
--- OUTSIDE RECORDS SUMMARY | 2024-12-11 09:02 | XMS_ITS | Encounter Summary ---
Author Organization Healthcare Address [address] [place] [address] Care Team Providers Care Senior Resident Care Director Name Role Phone Jevon Vazquez MD Primary Care Provider [phone] Encounter Details Date Type Department Care Team [...] Hematology/BMT and Cellular Therapy Program [address] [address] 12/17/2024 10:00 AM EDT Office Visit PAV CC Hematology/BMT and Cellular Therapy Program [address] [place] [address] New Mckinney MD 800 [facility] [address] [place] [address] 12/17/2024 11:30 AM EDT Appointment [facility] 2 [address] [place] [address] 12/18/2024 3:00 PM EDT Appointment [facility] 1 [address] [place] [address] 12/19/2024 3:00 PM EDT Appointment [facility] 2 [address] [place] [address] 12/20/2024 3:00 PM EDT Appointment [facility] 2 [address] [place] [address] 12/21/2024 3:00 PM EDT Appointment [facility] 2 [address] [place] [address] 12/22/2024 3:00 PM EDT Appointment [facility] 2 [address] [place] [address] 12/23/2024 3:00 PM EDT Appointment [facility] 2 [address] [place] [address] documented as of this encounter Visit Diagnoses Not on filedocumented in this encounter Additional Health Concerns Assessment Noted Time A fall risk assessment has been complete d for the patient 09/30/2024 9:33 AM EDT A Body Mass Index follow-up plan has been documented for the patient 05/28/2024 1:52 PM EST documented as of this encounter Care Teams Senior Resident Care Director Relationship Specialty Start Date End Date Jevon Vazquez MD [address] [place] [address] #1 #1 [place] [address] PCP - General 03/23/22 documented as of this encounter
--- OUTSIDE RECORDS SUMMARY | 2024-12-11 09:02 | XMS_ITS | Encounter Summary ---
Author Organization Healthcare Address [address] [place] [address] Care Team Providers Care Gliding Pilot Instructor Name Role Phone Jevon Vazquez MD Primary Care Provider [phone] Encounter Details Date Type Department Care Team (Late Contact Info) Description 11/27/2024 Telephone P[facility] CC Hematology/BMT and Cellular Therapy Program [address] [address] Zonia Hoffman, BLOW MOLD OPERATOR 800 [facility] [address] [place] [phone] Social History Tobacco Use Types Packs/Day Years [...] CC Hematology/BMT and Cellular Therapy Program 750 [facility] [place] [address] 12/17/2024 10:00 AM EDT Office Visit PAV Hematology/BMT and Cellular Therapy Program 750 [facility] [place] [address] New Mckinney MD 800 [facility] [address] [place] [address] 12/17/2024 11:30 AM EDT Appointment [facility] 2 [address] [place] [address] 12/18/2024 3:00 PM EDT Appointment [facility] 1 [address] [place] [address] 12/19/2024 3:00 PM EDT Appointment [facility] 2 [address] [place] [address] 12/20/2024 3:00 PM EDT Appointment [facility] 2 [address] [place] [address] 12/21/2024 3:00 PM EDT Appointment [facility] 2 [address] [place] [address] 12/22/2024 3:00 PM EDT Appointment [facility] 2 [address] [place] [address] 12/23/2024 3:00 PM EDT Appointment [facility] 2 [address] [place] [address] documented as of this encounter Visit Diagnoses Not on filedocumented in this encounter Additional Health Concerns Assessment Noted Time A fall risk assessment has been complete d for the patient 09/30/2024 9:33 AM EDT A Body Mass Index follow-up plan has been documented for the patient 05/28/2024 1:52 PM EST documented as of this encounter Care Teams Gliding Pilot Instructor Relationship Specialty Start Date End Date Jevon Vazquez MD [address] [place] [address] #1 #1 [place] [address] PCP - General 03/23/22 documented as of this encounter
--- OUTSIDE RECORDS SUMMARY | 2024-12-11 09:02 | XMS_ITS ---
Author Organization [facility] Address [address] [place] [address] Care Team Providers Care Mold Filler Name Role Phone Jevon Vazquez MD Primary Care Provider [phone] Active Problems Problem Noted Date Diagnosed Date [...]
--- OUTSIDE RECORDS SUMMARY | 2024-12-11 09:02 | XMS_ITS | Encounter Summary ---
Author Organization [facility] Address [address] [place] [address] Care Team Providers Care Gaming Director Name Role Phone Jevon Vazquez MD Primary Care Provider [phone] Reason for Visit * Reason Comments Med Refill Encounter Details Date Type Department Care Team ([facility] Contact Info) Description 01/30/2024 Refill PAV CC Hematology/BMT and Cellular Therapy Program [address] [place] [phone] New Mckinney MD 800 [facility] [address] [place] [phone] Social History Tobacco Use Types Packs/Day Years [...] Encounters Date Type Department Care Team ([facility] Contact Info) Description 12/17/2024 9:30 AM EDT Clinical Support PAV CC Hematology/BMT and Cellular Therapy Program [address] [place] [address] 12/17/2024 10:00 AM EDT Office Visit PAV CC Hematology/BMT and Cellular Therapy Program [address] [address] New Mckinney MD [address] [facility] [address] [place] [address] 12/17/2024 11:30 AM EDT Appointment [facility] 2 [address] [place] [address] 12/18/2024 3:00 PM EDT Appointment [facility] 1 [address] [place] [address] 12/19/2024 3:00 PM EDT Appointment [facility] 2 [address] [place] [address] 12/20/2024 3:00 PM EDT Appointment [facility] 2 [address] [place] [address] 12/21/2024 3:00 PM EDT Appointment [facility] 2 [address] [place] [address] 12/22/2024 3:00 PM EDT Appointment [facility] 2 [address] [place] [address] 12/23/2024 3:00 PM EDT Appointment [facility] 2 [address] [place] [address] documented as of this encounter Visit Diagnoses Not on filedocumented in this encounter Additional Health Concerns Assessment Noted Time A fall risk assessment has been complete d for the patient 01/11/2024 9:16 AM EDT A Body Mass Index follow-up plan has been documented for the patient 01/21/2024 6:16 AM EDT documented as of this encounter Care Teams Gaming Director Relationship Specialty Start Date End Date Jevon Vazquez MD [address] [place] [address] #1 #1 [place] [address] PCP - General 03/23/22 documented as of this encounter
--- OUTSIDE RECORDS SUMMARY | 2024-12-11 09:02 | XMS_ITS | Encounter Summary ---
Author Organization [facility] Address [address] [place] [address] Care Team Providers Care Rivet Spinner Name Role Phone Jevon Vazquez MD Primary Care Provider [phone] Reason for Visit * Reason Comments Med Refill Encounter Details Date Type Department Care Team ([facility] Contact Info) Description 12/09/2024 Refill PAV CC Hematology/BMT and Cellular Therapy Program [address] [phone] Zonia Hoffman, TELEGRAPH SERVICE RATER 800 [facility] [address] [place] [phone] Social History Tobacco Use Types Packs/Day Years [...] [facility]) Description 12/17/2024 9:30 AM EDT Clinical Support P[facility] CC Hematology/BMT and Cellular Therapy Program [address] [address] 12/17/2024 10:00 AM EDT Office Visit PAV CC Hematology/BMT and Cellular Therapy Program [address] [address] New Mckinney MD [address] [facility] [address] [place] [address] 12/17/2024 11:30 AM EDT Appointment [facility] 2 [address] [place] [address] 12/18/2024 3:00 PM EDT Appointment [facility] 1 [address] [place] [address] 12/19/2024 3:00 PM EDT Appointment [facility] 2 [address] [place] [address] 12/20/2024 3:00 PM EDT Appointment [facility] 2 [address] [place] [address] 12/21/2024 3:00 PM EDT Appointment [facility] 2 [address] [place] [address] 12/22/2024 3:00 PM EDT Appointment [facility] 2 [address] [place] [address] 12/23/2024 3:00 PM EDT Appointment [facility] 2 [address] [place] [address] documented as of this encounter Visit Diagnoses Not on filedocumented in this encounter Additional Health Concerns Assessment Noted Time A fall risk assessment has been complete d for the patient 09/30/2024 9:33 AM EDT A Body Mass Index follow-up plan has been documented for the patient 05/28/2024 1:52 PM EST documented as of this encounter Care Teams Rivet Spinner Relationship Specialty Start Date End Date Jevon Vazquez MD [address] [place] [address] #1 #1 [place] [address] PCP - General 03/23/22 documented as of this encounter
--- OUTSIDE RECORDS SUMMARY | 2024-12-11 09:03 | XMS_ITS | Encounter Summary ---
Author Organization Healthcare Address [address] [place] [address] Care Team Providers Care Dispensing Optician Apprentice Name Role Phone Jevon Vazquez MD Primary Care Provider [phone] Encounter Details Date Type Department Care Team [...] Hematology/BMT and Cellular Therapy Program [address] [address] 12/17/2024 10:00 AM EDT Office Visit PAV CC Hematology/BMT and Cellular Therapy Program [address] [place] [address] New Mckinney MD 800 [facility] [address] [place] [address] 12/17/2024 11:30 AM EDT Appointment [facility] 2 [address] [place] [address] 12/18/2024 3:00 PM EDT Appointment [facility] 1 [address] [place] [address] 12/19/2024 3:00 PM EDT Appointment [facility] 2 [address] [place] [address] 12/20/2024 3:00 PM EDT Appointment [facility] 2 [address] [place] [address] 12/21/2024 3:00 PM EDT Appointment [facility] 2 [address] [place] [address] 12/22/2024 3:00 PM EDT Appointment [facility] 2 [address] [place] [address] 12/23/2024 3:00 PM EDT Appointment [facility] 2 [address] [place] [address] documented as of this encounter Visit Diagnoses Not on filedocumented in this encounter Additional Health Concerns Assessment Noted Time A fall risk assessment has been complete d for the patient 09/30/2024 9:33 AM EDT A Body Mass Index follow-up plan has been documented for the patient 05/28/2024 1:52 PM EST documented as of this encounter Care Teams Dispensing Optician Apprentice Relationship Specialty Start Date End Date Jevon Vazquez MD [address] [place] [address] #1 #1 [place] [address] PCP - General 03/23/22 documented as of this encounter
--- OUTSIDE RECORDS SUMMARY | 2024-12-11 09:03 | XMS_ITS | Encounter Summary ---
Author Organization Healthcare Address [address] [place] [address] Care Team Providers Care Rubber Thread Spooler Name Role Phone Jevon Vazquez MD Primary Care Provider [phone] Encounter Details Date Type Department Care Team [...] Hematology/BMT and Cellular Therapy Program [address] [address] 12/17/2024 10:00 AM EDT Office Visit PAV CC Hematology/BMT and Cellular Therapy Program [address] [place] [address] New Mckinney MD 800 [facility] [address] [place] [address] 12/17/2024 11:30 AM EDT Appointment [facility] 2 [address] [place] [address] 12/18/2024 3:00 PM EDT Appointment [facility] 1 [address] [place] [address] 12/19/2024 3:00 PM EDT Appointment [facility] 2 [address] [place] [address] 12/20/2024 3:00 PM EDT Appointment [facility] 2 [address] [place] [address] 12/21/2024 3:00 PM EDT Appointment [facility] 2 [address] [place] [address] 12/22/2024 3:00 PM EDT Appointment [facility] 2 [address] [place] [address] 12/23/2024 3:00 PM EDT Appointment [facility] 2 [address] [place] [address] documented as of this encounter Visit Diagnoses Not on filedocumented in this encounter Additional Health Concerns Assessment Noted Time A fall risk assessment has been complete d for the patient 09/30/2024 9:33 AM EDT A Body Mass Index follow-up plan has been documented for the patient 05/28/2024 1:52 PM EST documented as of this encounter Care Teams Rubber Thread Spooler Relationship Specialty Start Date End Date Jevon Vazquez MD [address] [place] [address] #1 #1 [place] [address] PCP - General 03/23/22 documented as of this encounter
--- OUTSIDE RECORDS SUMMARY | 2024-12-11 09:03 | XMS_ITS | Encounter Summary ---
Author Organization [facility] Address [address] [place] [address] Care Team Providers Care School Based Therapist Name Role Phone Jevon Vazquez MD Primary Care Provider [phone] Reason for Visit * Reason Comments Med Refill Encounter Details Date Type Department Care Team ([facility] Contact Info) Description 10/14/2024 Refill PAV CC Hematology/BMT and Cellular Therapy Program [address] [phone] New Mckinney MD 800 [facility] [address] [place] [address] Social History Tobacco Use Types Packs/Day Years [...] Upcoming Encounters Date Type Department Care Team ([facility] Contact Info) Description 12/17/2024 9:30 AM EDT Clinical Support PAV CC Hematology/BMT and Cellular Therapy Program [address] [phone] 12/17/2024 10:00 AM EDT Office Visit P[facility] CC Hematology/BMT and Cellular Therapy Program [address] [address] New Mckinney MD [address] [facility] [address] [place] [address] 12/17/2024 11:30 AM EDT Appointment [facility] 2 [address] [place] [address] 12/18/2024 3:00 PM EDT Appointment [facility] 1 [address] [place] [address] 12/19/2024 3:00 PM EDT Appointment [facility] [address] [place] [address] 12/20/2024 3:00 PM EDT Appointment [facility] [address] [place] [address] 12/21/2024 3:00 PM EDT Appointment [facility] [address] [place] [address] 12/22/2024 3:00 PM EDT Appointment [facility] [address] [place] [address] 12/23/2024 3:00 PM EDT Appointment [facility] [address] [place] [address] documented as of this encounter Visit Diagnoses Not on filedocumented in this encounter Additional Health Concerns Assessment Noted Time A fall risk assessment has been complete d for the patient 09/30/2024 9:33 AM EDT A Body Mass Index follow-up plan has been documented for the patient 05/28/2024 1:52 PM EST documented as of this encounter Care Teams School Based Therapist Relationship Specialty Start Date End Date Jevon Vazquez MD [address] [place] [address] #1 #1 [place] [address] PCP - General 03/23/22 documented as of this encounter
--- OUTSIDE RECORDS SUMMARY | 2024-12-11 09:03 | XMS_ITS | Encounter Summary ---
Author Organization Healthcare Address [address] [place] [address] Care Team Providers Care Apartment Groundskeeper Name Role Phone Jevon Vazquez MD Primary Care Provider Encounter Details Date Type Department Care Team ([facility] st Contact Info) Description 10/27/2024 Telephone PAV CC Hematology/BMT and Cellular Therapy Program [address] [address] Zonia Hoffman, SENIOR SOFTWARE QA ENGINEER 800 [facility] [address] [place] [phone] Social History Tobacco Use Types Packs/Day Years [...] and her new appts will be on sickweather. She verbalizes understanding. * Telephone Encounter - [...] Hematology/BMT and Cellular Therapy Program [address] [address] 12/17/2024 10:00 AM EDT Office Visit PAV Hematology/BMT and Cellular Therapy Program [address] [address] New Mckinney MD [address] [facility] [address] [place] [address] 12/17/2024 11:30 AM EDT Appointment [facility] 2 [address] [place] [address] 12/18/2024 3:00 PM EDT Appointment [facility] 1 [address] [place] [address] 12/19/2024 3:00 PM EDT Appointment [facility] 2 [address] [place] [address] 12/20/2024 3:00 PM EDT Appointment [facility] 2 [address] [place] [address] 12/21/2024 3:00 PM EDT Appointment [facility] 2 [address] [place] [address] 12/22/2024 3:00 PM EDT Appointment [facility] 2 [address] [place] [address] 12/23/2024 3:00 PM EDT Appointment [facility] 2 [address] [place] [address] documented as of this encounter Visit Diagnoses Not on filedocumented in this encounter Additional Health Concerns Assessment Noted Time A fall risk assessment has been complete d for the patient 09/30/2024 9:33 AM EDT A Body Mass Index follow-up plan has been documented for the patient 05/28/2024 1:52 PM EST documented as of this encounter Care Teams Apartment Groundskeeper Relationship Specialty Start Date End Date Jevon Vazquez MD [address] [place] [address] #1 #1 [place] [address] PCP - General 03/23/22 documented as of this encounter
--- OUTSIDE RECORDS SUMMARY | 2024-12-11 09:03 | XMS_ITS | Encounter Summary ---
Author Organization Healthcare Address [address] [place] [address] Care Team Providers Care Flute Teacher Name Role Phone Jevon Vazquez MD Primary Care Provider [phone] Encounter Details Date Type Department Care Team [...] Hematology/BMT and Cellular Therapy Program [address] [address] 12/17/2024 10:00 AM EDT Office Visit [facility] Hematology/BMT and Cellular Therapy Program [address] [place] [address] New Mckinney MD 800 [facility] [address] [place] [address] 12/17/2024 11:30 AM EDT Appointment [facility] [address] [place] [address] 12/18/2024 3:00 PM EDT Appointment [facility] 1 [address] [place] [address] 12/19/2024 3:00 PM EDT Appointment [facility] 2 [address] [place] [address] 12/20/2024 3:00 PM EDT Appointment [facility] 2 [address] [place] [address] 12/21/2024 3:00 PM EDT Appointment [facility] 2 [address] [place] [address] 12/22/2024 3:00 PM EDT Appointment [facility] 2 [address] [place] [address] 12/23/2024 3:00 PM EDT Appointment [facility] 2 [address] [place] [address] documented as of this encounter Visit Diagnoses Not on filedocumented in this encounter Additional Health Concerns Assessment Noted Time A fall risk assessment has been complete d for the patient 09/30/2024 9:33 AM EDT A Body Mass Index follow-up plan has been documented for the patient 05/28/2024 1:52 PM EST documented as of this encounter Care Teams Flute Teacher Relationship Specialty Start Date End Date Jevon Vazquez MD [address] [place] [address] [address]1 [place] [address] PCP - General 03/23/22 documented as of this encounter
--- OUTSIDE RECORDS SUMMARY | 2024-12-11 09:03 | XMS_ITS | Encounter Summary ---
Author Organization Healthcare Address [address] [place] [address] Care Team Providers Care Master Technician Name Role Phone Jevon Vazquez MD Primary Care Provider [phone] Encounter Details Date Type Department Care Team [...] Hematology/BMT and Cellular Therapy Program [address] [address] 12/17/2024 10:00 AM EDT Office Visit [facility] Hematology/BMT and Cellular Therapy Program [address] [place] [address] New Mckinney MD 800 [facility] [address] [place] [address] 12/17/2024 11:30 AM EDT Appointment [facility] 2 [address] [place] [address] 12/18/2024 3:00 PM EDT Appointment [facility] 1 [address] [place] [address] 12/19/2024 3:00 PM EDT Appointment [facility] 2 [address] [place] [address] 12/20/2024 3:00 PM EDT Appointment [facility] 2 [address] [place] [address] 12/21/2024 3:00 PM EDT Appointment [facility] 2 [address] [place] [address] 12/22/2024 3:00 PM EDT Appointment [facility] 2 [address] [place] [address] 12/23/2024 3:00 PM EDT Appointment [facility] 2 [address] [place] [address] documented as of this encounter Visit Diagnoses Not on filedocumented in this encounter Additional Health Concerns Assessment Noted Time A fall risk assessment has been complete d for the patient 09/30/2024 9:33 AM EDT A Body Mass Index follow-up plan has been documented for the patient 05/28/2024 1:52 PM EST documented as of this encounter Care Teams Master Technician Relationship Specialty Start Date End Date Jevon Vazquez MD [address] [place] [address] [address]1 [place] [address] PCP - General 03/23/22 documented as of this encounter
--- OUTSIDE RECORDS SUMMARY | 2024-12-11 09:03 | XMS_ITS | Encounter Summary ---
Author Organization Healthcare Address [address] [place] [address] Care Team Providers Care Horse Identifier Name Role Phone Jevon Vazquez MD Primary Care Provider [phone] Encounter Details Date Type Department Care Team [...] Hematology/BMT and Cellular Therapy Program [address] [address] 12/17/2024 10:00 AM EDT Office Visit [facility] Hematology/BMT and Cellular Therapy Program [address] [place] [address] New Mckinney MD 800 [facility] [address] [place] [address] 12/17/2024 11:30 AM EDT Appointment [facility] 2 [address] [place] [address] 12/18/2024 3:00 PM EDT Appointment [facility] 1 [address] [place] [address] 12/19/2024 3:00 PM EDT Appointment [facility] 2 [address] [place] [address] 12/20/2024 3:00 PM EDT Appointment [facility] 2 [address] [place] [address] 12/21/2024 3:00 PM EDT Appointment [facility] 2 [address] [place] [address] 12/22/2024 3:00 PM EDT Appointment [facility] 2 [address] [place] [address] 12/23/2024 3:00 PM EDT Appointment [facility] 2 [address] [place] [address] documented as of this encounter Visit Diagnoses Not on filedocumented in this encounter Additional Health Concerns Assessment Noted Time A fall risk assessment has been complete d for the patient 09/30/2024 9:33 AM EDT A Body Mass Index follow-up plan has been documented for the patient 05/28/2024 1:52 PM EST documented as of this encounter Care Teams Horse Identifier Relationship Specialty Start Date End Date Jevon Vazquez MD [address] [place] [address] [address]1 [place] [address] PCP - General 03/23/22 documented as of this encounter
--- OUTSIDE RECORDS SUMMARY | 2024-12-11 09:03 | XMS_ITS | Encounter Summary ---
Author Organization Healthcare Address [address] [place] [address] Care Team Providers Care Dip Tanker Name Role Phone Jevon Vazquez MD Primary Care Provider [phone] Encounter Details Date Type Department Care Team ([facility] st Contact Info) Description 10/13/2024 Telephone [facility] Hematology/BMT and Cellular Therapy Program [address] [address] Zonia Hoffman, MANAGER RECRUITING 800 [facility] [address] [place] [address] Social History Tobacco Use Types Packs/Day Years [...] needs to be delayed again Callback number: [phone] documented in this encounter Plan of Treatment Upcoming Encounters Date Type Department Care Team ([facility] st Contact Info) Description 12/17/2024 9:30 AM EDT Clinical Support [facility] Hematology/BMT and Cellular Therapy Program [address] [place] [address] 12/17/2024 10:00 AM EDT Office Visit [facility] Hematology/BMT and Cellular Therapy Program [address] [address] New Mckinney MD 800 [facility] [address] [place] [address] 12/17/2024 11:30 AM EDT Appointment [facility] 2 744 [place] [address] 12/18/2024 3:00 PM EDT Appointment [facility] 1 [address] [place] [address] 12/19/2024 3:00 PM EDT Appointment [facility] 2 [address] [place] [address] 12/20/2024 3:00 PM EDT Appointment [facility] 2 [address] [place] [address] 12/21/2024 3:00 PM EDT Appointment [facility] 2 [address] [place] [address] 12/22/2024 3:00 PM EDT Appointment [facility] 2 [address] [place] [address] 12/23/2024 3:00 PM EDT Appointment [facility] 2 [address] [place] [address] documented as of this encounter Visit Diagnoses Not on filedocumented in this encounter Additional Health Concerns Assessment Noted Time A fall risk assessment has been complete d for the patient 09/30/2024 9:33 AM EDT A Body Mass Index follow-up plan has been documented for the patient 05/28/2024 1:52 PM EST documented as of this encounter Care Teams Dip Tanker Relationship Specialty Start Date End Date Jevon Vazquez MD [address] [place] [address] [address]1 [address]1 [place] [address] PCP - General 03/23/22 documented as of this encounter
--- OUTSIDE RECORDS SUMMARY | 2024-12-11 09:03 | XMS_ITS | Clinical Summary ---
Author Organization [facility] Address [address] [place] [address] Care Team Providers Care Criminal Justice Program Director Name Role Phone David Vazquez Primary Care [...] series) 2025 Medical Devices Implanted Type Area Manager Of Learning Device Identifier Shelf Expiration Date Model / Serial / Lot Mis Ply Scr 6.5x50mm - [id number] Implanted:Qty : 1 on 01/30/2023 by Ivan Bartholomew MD at [facility] [place] Screw N/A: Spine Lumbar [employer] [id number] / / Mis Ply Scr 6.5x45mm - [id number] Implanted:Qty : 3 on 01/30/2023 by Ivan Bartholomew MD at [facility] [place] Screw N/A: Spine Lumbar [employer] [id number] / / Reline Mas Reduction Screw 7.5x45 - [id number] Implanted:Qty : 2 on 01/30/2023 by Ivan Bartholomew MD at [facility] [place] Screw N/A: Spine Lumbar [employer] [id number] / / Grft Dbm Vesuvius Putty 5cc - [id number] Implanted:Qty : 1 on 01/30/2023 by Ivan Bartholomew MD at [facility] [place] [employer] [id number] 04/20/2025 [id number] P / [id number] / Putty I-Factor 5.0cc - [id number] Implanted:Qty : 1 on 01/30/2023 by Ivan Bartholomew MD at [facility] [place] N/A: Spine Lumbar [employer] 03/15/2025 [id number] / / [id number] Modulus Xlw [id number] 10 Degree - [id number] Implanted:Qty : 1 on 01/30/2023 by Ivan Bartholomew MD at [facility] [place] N/A: Spine Lumbar [employer] [id number] / / [id number] Modulus Xlw [id number] - [id number] Implanted:Qty : 1 on 01/30/2023 by Ivan Bartholomew MD at [facility] [place] N/A: Spine Lumbar [employer] 09/28/2027 [id number] / / [id number] Reln Lock Scr 5.5mm Opn Tulip - [id number] Implanted:Qty : 6 on 01/30/2023 by Ivan Bartholomew MD at [facility] N/A: Spine Lumbar [employer] [id number] / / Reln Mas Ti Petar 5.5x70mm - [id number] Implanted:Qty : 2 on 01/30/2023 by Ivan Bartholomew MD at [facility] N/A: Spine Lumbar [employer] [id number] / / Procedures Procedure Name Priority Date/Time [...] al Result [facility] [address] * (ABNORMAL) BASIC METABOLIC PANEL (BMP=EP1) [...] lt [facility] [address] from Last 3 Months or Most Recently Relevant to Health Maintenance Insurance MEDICARE PART A [facility] [address] [address] [place] [address] ANTH Advance Directives For more information, please contact: [phone] * Full Code (Latest Code Status on File) Date Activated Date Inactivated Comments 01/30/2023 9:13 AM No automated chest compression devices for [facility] Patients Care Teams Criminal Justice Program Director Relationship Specialty Start Date End Date David Vazquez [address] [place] [id number] PCP - General 01/24/23
--- OUTSIDE RECORDS SUMMARY | 2024-12-11 09:03 | XMS_ITS | Encounter Summary ---
Author Organization Healthcare Address [address] [place] [address] Care Team Providers Care Wire Stitcher Machine Name Role Phone Jevon Vazquez MD Primary Care Provider [phone] Encounter Details Date Type Department Care Team [...] Cellular Therapy Program [address] [address] 12/17/2024 10:00 AM EDT Office Visit [facility] Hematology/BMT and Cellular Therapy Program [address] [place] [address] New Mckinney MD 800 [facility] [address] [place] [address] 12/17/2024 11:30 AM EDT Appointment [facility] 2 [address] [place] [address] 12/18/2024 3:00 PM EDT Appointment [facility] 1 [address] [place] [address] 12/19/2024 3:00 PM EDT Appointment [facility] 2 [address] [place] [address] 12/20/2024 3:00 PM EDT Appointment [facility] 2 [address] [place] [address] 12/21/2024 3:00 PM EDT Appointment [facility] 2 [address] [place] [address] 12/22/2024 3:00 PM EDT Appointment [facility] 2 [address] [place] [address] 12/23/2024 3:00 PM EDT Appointment [facility] 2 [address] [place] [address] documented as of this encounter Visit Diagnoses Not on filedocumented in this encounter Additional Health Concerns Assessment Noted Time A fall risk assessment has been complete d for the patient 09/30/2024 9:33 AM EDT A Body Mass Index follow-up plan has been documented for the patient 05/28/2024 1:52 PM EST documented as of this encounter Care Teams Wire Stitcher Machine Relationship Specialty Start Date End Date Jevon Vazquez MD [address] [place] [address] [address]1 [address]1 [place] [address] PCP - General 03/23/22 documented as of this encounter
--- OUTSIDE RECORDS SUMMARY | 2024-12-11 09:03 | XMS_ITS | Encounter Summary ---
Author Organization Healthcare Address [address] [place] [address] Care Team Providers Care Senior Investment Manager Name Role Phone Jevon Vazquez MD Primary Care Provider [phone] Encounter Details Date Type Department Care Team [...] Hematology/BMT and Cellular Therapy Program [address] [address] 12/17/2024 10:00 AM EDT Office Visit [facility] Hematology/BMT and Cellular Therapy Program [address] [place] [address] New Mckinney MD 800 [facility] [address] [place] [address] 12/17/2024 11:30 AM EDT Appointment [facility] 2 744 [place] [address] 12/18/2024 3:00 PM EDT Appointment [facility] 1 [address] [place] [address] 12/19/2024 3:00 PM EDT Appointment [facility] 2 [address] [place] [address] 12/20/2024 3:00 PM EDT Appointment [facility] 2 [address] [place] [address] 12/21/2024 3:00 PM EDT Appointment [facility] 2 [address] [place] [address] 12/22/2024 3:00 PM EDT Appointment [facility] 2 [address] [place] [address] 12/23/2024 3:00 PM EDT Appointment [facility] 2 [address] [place] [address] documented as of this encounter Visit Diagnoses Not on filedocumented in this encounter Additional Health Concerns Assessment Noted Time A fall risk assessment has been complete d for the patient 09/30/2024 9:33 AM EDT A Body Mass Index follow-up plan has been documented for the patient 05/28/2024 1:52 PM EST documented as of this encounter Care Teams Senior Investment Manager Relationship Specialty Start Date End Date Jevon Vazquez MD [address] [place] [address] [address]1 [place] [address] PCP - General 03/23/22 documented as of this encounter
--- OUTSIDE RECORDS SUMMARY | 2024-12-11 09:03 | XMS_ITS | Encounter Summary ---
Author Organization [facility] Address [address] [place] [address] Care Team Providers Care Darklight Inspector Name Role Phone Jevon Vazquez MD Primary Care Provider [phone] Reason for Visit * Reason Comments Med Refill Encounter Details Date Type Department Care Team ([facility] Contact Info) Description 11/08/2024 Refill [facility] Hematology/BMT and Cellular Therapy Program [address] [phone] New Mckinney MD 800 [facility] [address] [place] [address] Social History Tobacco Use Types Packs/Day Years [...] Team ([facility] Contact Info) Description 12/17/2024 9:30 AM EDT Clinical Support [facility] Hematology/BMT and Cellular Therapy Program [address] [phone] 12/17/2024 10:00 AM EDT Office Visit [facility] Hematology/BMT and Cellular Therapy Program [address] [address] New Mckinney MD [address] [facility] [address] [place] [address] 12/17/2024 11:30 AM EDT Appointment [facility] 2 [address] [place] [address] 12/18/2024 3:00 PM EDT Appointment [facility] 1 [address] [place] [address] 12/19/2024 3:00 PM EDT Appointment [facility] 2 744 [place] [address] 12/20/2024 3:00 PM EDT Appointment [facility] 2 [address] [place] [address] 12/21/2024 3:00 PM EDT Appointment [facility] 2 [address] [place] [address] 12/22/2024 3:00 PM EDT Appointment [facility] 2 [address] [place] [address] 12/23/2024 3:00 PM EDT Appointment [facility] 2 [address] [place] [address] documented as of this encounter Visit Diagnoses Not on filedocumented in this encounter Additional Health Concerns Assessment Noted Time A fall risk assessment has been complete d for the patient 09/30/2024 9:33 AM EDT A Body Mass Index follow-up plan has been documented for the patient 05/28/2024 1:52 PM EST documented as of this encounter Care Teams Darklight Inspector Relationship Specialty Start Date End Date Jevon Vazquez MD [address] [place] [address] #1 [address]1 [place] [address] PCP - General 03/23/22 documented as of this encounter
--- OUTSIDE RECORDS SUMMARY | 2024-12-11 09:03 | XMS_ITS | Encounter Summary ---
Author Organization Healthcare Address [address] [place] [address] Care Team Providers Care Technical Sales Representative Name Role Phone eJvon Vazquez MD Primary Care Provider [phone] Encounter Details Date Type Department Care Team [...] Hematology/BMT and Cellular Therapy Program [address] [address] 12/17/2024 10:00 AM EDT Office Visit [facility] Hematology/BMT and Cellular Therapy Program [address] [place] [address] New Mckinney MD 800 [facility] [address] [place] [address] 12/17/2024 11:30 AM EDT Appointment [facility] 2 [address] [place] [address] 12/18/2024 3:00 PM EDT Appointment [facility] 1 [address] [place] [address] 12/19/2024 3:00 PM EDT Appointment [facility] 2 [address] [place] [address] 12/20/2024 3:00 PM EDT Appointment [facility] 2 [address] [place] [address] 12/21/2024 3:00 PM EDT Appointment [facility] 2 [address] [place] [address] 12/22/2024 3:00 PM EDT Appointment [facility] 2 [address] [place] [address] 12/23/2024 3:00 PM EDT Appointment [facility] 2 [address] [place] [address] documented as of this encounter Visit Diagnoses Not on filedocumented in this encounter Additional Health Concerns Assessment Noted Time A fall risk assessment has been complete d for the patient 09/30/2024 9:33 AM EDT A Body Mass Index follow-up plan has been documented for the patient 05/28/2024 1:52 PM EST documented as of this encounter Care Teams Technical Sales Representative Relationship Specialty Start Date End Date Jevon Vazquez MD [address] [place] [address] [address]1 [address]1 [place] [address] PCP - General 03/23/22 documented as of this encounter
--- OUTSIDE RECORDS SUMMARY | 2024-12-11 09:03 | XMS_ITS | Encounter Summary ---
Author Organization Healthcare Address [address] [place] [address] Care Team Providers Care Mixer Helper Name Role Phone Jevon Vaqzuez MD Primary Care Provider [phone] Encounter Details Date Type Department Care Team [...] Hematology/BMT and Cellular Therapy Program [address] [address] 12/17/2024 10:00 AM EDT Office Visit [facility] Hematology/BMT and Cellular Therapy Program [address] [place] [address] New Mckinney MD 800 [facility] [address] [place] [address] 12/17/2024 11:30 AM EDT Appointment [facility] 2 [address] [place] [address] 12/18/2024 3:00 PM EDT Appointment [facility] 1 [address] [place] [address] 12/19/2024 3:00 PM EDT Appointment [facility] 2 [address] [place] [address] 12/20/2024 3:00 PM EDT Appointment [facility] 2 [address] [place] [address] 12/21/2024 3:00 PM EDT Appointment [facility] 2 [address] [place] [address] 12/22/2024 3:00 PM EDT Appointment [facility] 2 [address] [place] [address] 12/23/2024 3:00 PM EDT Appointment [facility] 2 [address] [place] [address] documented as of this encounter Visit Diagnoses Not on filedocumented in this encounter Additional Health Concerns Assessment Noted Time A fall risk assessment has been complete d for the patient 09/30/2024 9:33 AM EDT A Body Mass Index follow-up plan has been documented for the patient 05/28/2024 1:52 PM EST documented as of this encounter Care Teams Mixer Helper Relationship Specialty Start Date End Date Jevon Vazquez MD [address] [place] [address] [address]1 [address]1 [place] [address] PCP - General 03/23/22 documented as of this encounter
--- OUTSIDE RECORDS SUMMARY | 2024-12-11 09:03 | XMS_ITS | Encounter Summary ---
Author Organization Healthcare Address [address] [place] [address] Care Team Providers Care Golf Course Architect Name Role Phone Jevon Vazquez MD Primary Care Provider [phone] Encounter Details Date Type Department Care Team ([facility] st Contact Info) Description 10/28/2024 Telephone [facility] Hematology/BMT and Cellular Therapy Program [address] [address] Zonia Hoffman, FRONT OFFICE ASSISTANT 800 [facility] [address] [place] [address] Social History Tobacco Use Types Packs/Day Years [...] go over her labs results Callback number: [phone] documented in this encounter Plan of Treatment Upcoming Encounters Date Type Department Care Team (Late st Contact Info) Description 12/17/2024 9:30 AM EDT Clinical Support [facility] Hematology/BMT and Cellular Therapy Program 750 [facility], [address] [place] [address] 12/17/2024 10:00 AM EDT Office Visit PAV Hematology/BMT and Cellular Therapy Program 750 [facility], [address] [place] [address] New Mckinney MD 800 [facility] [address] [place] [address] 12/17/2024 11:30 AM EDT Appointment [facility] 2 744 [place] [address] 12/18/2024 3:00 PM EDT Appointment [facility] 1 [address]44 [place] [address] 12/19/2024 3:00 PM EDT Appointment [facility] 2 [address] [place] [address] 12/20/2024 3:00 PM EDT Appointment [facility] 2 [address] [place] [address] 12/21/2024 3:00 PM EDT Appointment [facility] 2 [address] [place] [address] 12/22/2024 3:00 PM EDT Appointment [facility] 2 [address] [place] [address] 12/23/2024 3:00 PM EDT Appointment [facility] 2 [address] [place] [address] documented as of this encounter Visit Diagnoses Not on filedocumented in this encounter Additional Health Concerns Assessment Noted Time A fall risk assessment has been complete d for the patient 09/30/2024 9:33 AM EDT A Body Mass Index follow-up plan has been documented for the patient 05/28/2024 1:52 PM EST documented as of this encounter Care Teams Golf Course Architect Relationship Specialty Start Date End Date Jevon Vazquez MD [address] [place] [address] #1 #1 [place] [address] PCP - General 03/23/22 documented as of this encounter
--- OUTSIDE RECORDS SUMMARY | 2024-12-11 09:03 | XMS_ITS | Encounter Summary ---
Author Organization Healthcare Address [address] [place] [address] Care Team Providers Care Back Hand Name Role Phone Jevon Vazquez MD Primary Care Provider [phone] Encounter Details Date Type Department Care Team [...] Hematology/BMT and Cellular Therapy Program [address] [address] 12/17/2024 10:00 AM EDT Office Visit [facility] Hematology/BMT and Cellular Therapy Program [address] [place] [address] New Mckinney MD 800 [facility] [address] [place] [phone] 12/17/2024 11:30 AM EDT Appointment [facility] 2 7[address] [place] [address] 12/18/2024 3:00 PM EDT Appointment [facility] 1 [address] [place] [address] 12/19/2024 3:00 PM EDT Appointment [facility] 2 [address] [place] [address] 12/20/2024 3:00 PM EDT Appointment [facility] 2 [address] [place] [address] 12/21/2024 3:00 PM EDT Appointment [facility] 2 [address] [place] [address] 12/22/2024 3:00 PM EDT Appointment [facility] 2 [address] [place] [address] 12/23/2024 3:00 PM EDT Appointment [facility] 2 [address] [place] [address] documented as of this encounter Visit Diagnoses Not on filedocumented in this encounter Additional Health Concerns Assessment Noted Time A fall risk assessment has been complete d for the patient 09/30/2024 9:33 AM EDT A Body Mass Index follow-up plan has been documented for the patient 05/28/2024 1:52 PM EST documented as of this encounter Care Teams Back Hand Relationship Specialty Start Date End Date Jevon Vazquez MD [address] [place] [address] #1 [address]1 [place] [address] PCP - General 03/23/22 documented as of this encounter
--- OUTSIDE RECORDS SUMMARY | 2024-12-11 09:04 | XMS_ITS | Clinical Summary ---
Author Organization [facility] Address [address] 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 Encounters Date Type Department Care Team Description 12/10/2024 Travel 12/09/2024 Refill [facility] Hematology/BMT and Cellular Therapy Program [address] [phone] Zonia Hoffman, MICROW[employer] REMOTE SENSING SCIENTIST 11/27/2024 Telephone [facility] Hematology/BMT and Cellular Therapy Program [address] [place] [phone] Zonia Hoffman, MICROWAVE REMOTE SENSING SCIENTIST 11/26/2024 Travel 11/25/2024 Travel 11/24/2024 Travel 11/23/2024 Travel 11/22/2024 Travel 11/13/2024 Orders Only [facility] Hematology/BMT and Cellular Therapy Program [address] [place] [phone] 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, grades 1 thru 6 visiting teacher 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) 11/12/2024 Travel 11/12/2024 Telephone [facility] Hematology/BMT and Cellular Therapy Program [address] [phone] Zonia Hoffman, MICROWAVE REMOTE SENSING SCIENTIST 11/11/2024 Travel 11/10/2024 Travel 11/09/2024 Travel 11/08/2024 Travel 11/08/2024 Refill [facility] Hematology/BMT and Cellular Therapy Program [address] [facility], [address] [place] [address] [place] [address] New Mckinney MD 11/07/2024 Travel 10/29/2024 Refill [facility] Hematology/BMT and Cellular Therapy Program [address] [facility], [address] [place] [address] [place] [address] Zonia Hoffman, MICROWAVE REMOTE SENSING SCIENTIST 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); Immunosuppressed status (CMS/HCC) 10/28/2024 Telephone [facility] Hematology/BMT and Cellular Therapy Program [address] [facility], [address] [place] [phone] Zonia Hoffman, MICROWAVE REMOTE SENSING SCIENTIST 10/27/2024 Telephone [facility] Hematology/BMT and Cellular Therapy Program [address] [facility], [address] [place] [address] [place] [address] Zonia Hoffman, MICROWAVE REMOTE SENSING SCIENTIST 10/27/2024 Travel 10/26/2024 Travel 10/24/2024 Travel 10/23/2024 Travel 10/22/2024 Travel 10/15/2024 Refill [facility] Hematology/BMT and Cellular Therapy Program [address] [phone] New Mckinney MD 10/14/2024 Refill [facility] Hematology/BMT and Cellular Therapy Program [address] [place] [address] Nwe Mckinney MD 10/13/2024 Telephone [facility] Hematology/BMT and Cellular Therapy Program [address] [facility], [address] [place] [address] [place] [address] Zonia Hoffman, MICROWAVE REMOTE SENSING SCIENTIST 10/13/2024 Travel 10/12/2024 Travel 10/11/2024 Travel 10/09/2024 Travel 10/08/2024 Travel 10/08/2024 Orders Only [facility] Hematology/BMT and Cellular Therapy Program [address] [facility], [address] [place] [address] [place] [address] 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, 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 thru 6 visiting teacher 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) 10/07/2024 Travel 09/30/2024 9:30 AM EDT Office Visit [facility] Hematology/BMT and Cellular Therapy Program [address] [phone] Zonia Hoffman APRN 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) 09/30/2024 9:00 AM EDT Clinical Support [facility] Hematology/BMT and Cellular Therapy Program [address] [phone] Jyoti Kemp 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) 09/30/2024 Telephone [facility] Hematology/BMT and Cellular Therapy Program [address] [phone] Zoraida Good RN 09/30/2024 Travel 09/29/2024 Travel 09/28/2024 Travel 09/27/2024 Travel 09/26/2024 Travel 09/25/2024 Travel 09/24/2024 Travel 09/23/2024 Travel 09/19/2024 12:00 PM EDT Procedure Visit [facility] Hematology/BMT and Cellular Therapy Program [address] [phone] Lexi Ferraro APRN 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) 09/19/2024 9:30 AM EDT Clinical Support [facility] [address] [facility], 2nd [place] [address] 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) 09/19/2024 7:30 AM EDT Clinical Support [facility] Hematology/BMT and Cellular Therapy Program [address] [phone] 09/19/2024 Telephone [facility] Hematology/BMT and Cellular Therapy Program [address] [phone] Romana Richmond RN 09/19/2024 Orders Only [facility] Hematology/BMT and Cellular Therapy Program [address] [facility], [address] [place] [phone] 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 RN 09/19/2024 Travel 09/15/2024 Telephone [facility] Hematology/BMT and Cellular Therapy Program [address] [facility], [address] [place] [phone] Zonia Hoffman APRN 09/15/2024 Travel 09/14/2024 Travel 09/13/2024 Travel 09/12/2024 Travel 09/12/2024 Refill [facility] Hematology/BMT and Cellular Therapy Program [address] [facility], [address] [place] [phone] New Mckinney MD 09/11/2024 Travel 09/10/2024 Travel [...] CC Hematology/BMT and Cellular Therapy Program [address] [facility], [facility] [place] [address] 12/17/2024 10:00 AM EDT Office Visit [facility] Hematology/BMT and Cellular Therapy Program [address] [facility], [address] [place] [phone] New Mckinney MD 800 [facility] [address] [place] [address] 12/17/2024 11:30 AM EDT Appointment [facility] 2 [address] [place] [address] 12/18/2024 3:00 PM EDT Appointment [facility] 1 [address] [place] [address] 12/19/2024 3:00 PM EDT Appointment [facility] 2 [address] [place] [address] 12/20/2024 3:00 PM EDT Appointment [facility] 2 [address] [place] [address] 12/21/2024 3:00 PM EDT Appointment [facility] 2 [address] [place] [address] 12/22/2024 3:00 PM EDT Appointment [facility] 2 [address] [place] [address] 12/23/2024 3:00 PM EDT Appointment [facility] 2 [address] [place] [address] Health Maintenance Due Date Last Done Comments [...] UKY-Zoster Vaccines (1 of 2) 05/16/2023 03/21/2023 [id number] Vaccine ( season) 2023 02/18/2021, 07/10/2020, 06/12/2020 [...] this topic Medical Devices Implanted Type Area Laboratory Assistant Device Identifier Shelf Expiration Date Model / Serial / Lot Port Clearvue Power 8fr - [id number] Implanted:Qty: 1 on 01/21/2024 by Ness Sargent MD at [facility] Peripherial Vascular-[id number] / / Procedures Procedure Name Priority Date/Time [...] 9:11 AM EDT 09/30/2024 9:34 AM EDT [facility] - 09/30/2024 11:07 AM EDT Therapeutic decision making should be based on absolute values, rather than percentages. us Zonia Hoffman APRN LAB BLOOD ORDERABLES Final Res ult [facility] [address] [place] [address] * (ABNORMAL) Comprehensive Metabolic Panel, Plasma (09/30/2024 [...] Res ult [facility] [address] [place] [address] * BIOPSY BONE MARROW (09/19/2024 12:00 PM [...] to surronding structures. Alternatives discussed: Delayed treatment [place] protocol: Procedure explained and questions answered to [...] ORDERABLES Final Re sult Performing Organization Address City/[facility]/ZIP Co de Phone Number [facility] [address] [place] [address] * Transfuse platelets, Irradiated (09/19/2024 10:02 AM EDT) Lexi Ferraro APRN BLOOD TRANSFUSION ORDERABL ES Final Result * Prepare Leukocyte Reduced Platelets (09/19/2024 9:08 AM EDT) Product Code C5753J85 BLOO D BANK Dispense Status Transfused BLOOD BANK Blood Expiration Date [id number] BLOOD BANK Unit Number [id number] CH B LOOD BANK Product Blood Type 6200 BLOOD BANK Blood Type A+ BLOOD BANK us Provider Not In System BLOOD BANK PRODUCT ORD ERABLES Final Result Performing Organization Address City/[facility] Co de Phone Number BLOOD BANK [address] [place] [address], * Myeloid Focused Panel, 50 gene (09/19/2024 7:29 AM EDT) Interpretation The following two (2) genes, TP53 and DNMT3A, with persistent variants have been detected in this bone marrow specimen. The variant, p.Aje125Itl, in TP53 gene and the variant, p.Utv039tcq, in the RUNX 1 gene are not detectable at current cutoff and coverage established in this lab. Gene: TP53 Mutation: c.814G>A; p.Ttu850Baa Allele Frequency (%): 37% (45% Dec 2023) ID: [id number] Gene: DNMT3A Mutation: c.1522delC; p.Zpn100AwgdyDgl30 3 Allele Frequency (%): 36% (48% Dec 2023) Additional Details on Mutation Identified: Gene Transcript Genome Chrom Coordinate RefVar DNMT3A [id number] Hg19 2 [id number] delC TP53 NM_000546.5 Hg19 17 [id number] G>A 09/29/2024 4:05 PM EDT [facility] [...] then sequenced on the Illumina NextSeq 2000 ([employer] [place]). A custom bioinformatics pipeline aligns [...] ORD ERABLES Final Result Performing Organization Address City/State/[facility] Co de Phone Number [facility] [address] [place] [address], * Chromosome Karyotype, Oncology (09/19/2024 7:29 AM EDT) Specimen Type Bone Marrow 09/24/2024 2:37 PM EDT [facility] Clinical Indication Myelodysplastic Syndrome [...] MD LAB CYTOGENETICS ORDERABLES F inal Result [facility] [address] [place] [address] * Leukemia/Lymphoma - Immunophenotyping by Flow Cytometry (09/19/2024 7:29 AM EDT) Clinical Indication AML 09/22/2024 10:29 AM EDT [facility] Flow Cytometry Interpretation A. BONE MARROW FOR [...] Final Result [facility] [address] [place] [address] * Bone marrow exam (09/19/2024 7:29 AM EDT) Case Report Bone Marrow Case: [id number] Authorizing Provider: New Mckinney MD Collected: 09/19/2024 0729 Ordering Location: [facility] Hematology/BMT and Received: 09/19/2024 1216 Cellular [...] in this bone marrow specimen. The variant, p.Rlv080Toy, in TP53 gene and the variant, p.Vdg386xar, in the RUNX 1 gene are not detectable at current cutoff and coverage established in this lab. Gene: TP53 Mutation: c.814G>A; p.Btm194Tox Allele Frequency (%): 37% (45% Dec 2023) ID: [id number] Gene: DNMT3A Mutation: c.1522delC; p.Crj200GwmthFoj4 43 Allele Frequency (%): 36% (48% Dec [...] blasts are not seen. 3:15 PM EDT [facility] Bone Marrow Differential BONE MARROW DIFFERENTIAL: 200 cells Normal Patient Neutrophils 15-50 34 Metamyelocytes 4-19 3 Myelocytes 1-18 10 Promyelocytes 1-8 1 Blasts 0-2 1 Monocytes 0-5 4 Erythroid 16-38 22 Lymphocytes 3-24 13 Eosinophils 0-6 8 Basophils 0-2 0 Plasma cells 0-4 4 Other 5 3:15 PM EDT [facility] [...] at the [facility], [address] [place] [address]. All tests reported here, except those addressing [...] OF INCREASED BLASTS OR ABNORMAL LYMPHOID POPULATIONS ([id number]). 3:15 PM EDT [facility] [...] ed Result - Final Performing Organization Address City/[facility]/ZIP Co de Phone Number [facility] [address] [place] [address] * Hepatitis C Antibody w/Reflex to HCV Quant PCR (01/07/2024 8:42 AM EDT) Hepatitis C Antibody Negative Negative 01/07/2024 10:13 AM EDT [facility] Blood Venous blood specimen / Unknown Venipuncture / Unknown 01/07/2024 8:42 AM EDT 01/07/2024 9:25 AM EDT us New Mckinney MD LAB BLOOD ORDERABLES Final Re sult Performing Organization Address City/[facility]/ZIP Co de Phone Number [facility] [address] [place] [address] from Last 3 Months or Most Recently Relevant to Health Maintenance [place] [address] [facility] Care Teams News Department Intern Relationship Specialty Start Date End Date Jevon Vazquez MD [address] [place] [address] #1 #1 [place] [address] PCP - General 03/23/22
--- OUTSIDE RECORDS SUMMARY | 2024-12-11 09:04 | XMS_ITS | Encounter Summary ---
Author Organization Healthcare Address [address] [place] [address] Care Team Providers Care Deli Slicer Name Role Phone Jevon Vazquez MD Primary Care Provider Encounter Details Date Type Department Care Team ([facility] Contact Info) Description 10/08/2024 Orders Only [facility] Hematology/BMT and Cellular Therapy Program [address] [phone] 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 RN [facility] Acute myeloid leukemia [...] Hematology/BMT and Cellular Therapy Program [address] [phone] 12/17/2024 10:00 AM EDT Office Visit [facility] Hematology/BMT and Cellular Therapy Program [address] [phone] New Mckinney MD 800 [facility] [address] [place] [address] 12/17/2024 11:30 AM EDT Appointment [facility] 2 [address] [place] [address] 12/18/2024 3:00 PM EDT Appointment [facility] 1 [address] [place] [address] 12/19/2024 3:00 PM EDT Appointment [facility] 2 [address] [place] [address] 12/20/2024 3:00 PM EDT Appointment [facility] 2 [address] [place] [address] 12/21/2024 3:00 PM EDT Appointment [facility] 2 [address] [place] [address] 12/22/2024 3:00 PM EDT Appointment [facility] 2 [address] [place] [address] 12/23/2024 3:00 PM EDT Appointment [facility] 2 [address] [place] [address] Scheduled Orders Name Type Priority Associated Diagnoses [...] documented as of this encounter Care Teams Deli Slicer Relationship Specialty Start Date End Date Jevon Vazquez MD [address] [place] [address] #1 #1 [place] [address] PCP - General 03/23/22 documented as of this encounter
--- OUTSIDE RECORDS SUMMARY | 2024-12-11 09:04 | XMS_ITS | Encounter Summary ---
Author Organization Healthcare Address [address] [place] [address] Care Team Providers Care Vp Talent Management Name Role Phone Jevon Vazquez MD Primary Care Provider [phone] Encounter Details Date Type Department Care Team [...] Hematology/BMT and Cellular Therapy Program [address] [address] 12/17/2024 10:00 AM EDT Office Visit [facility] Hematology/BMT and Cellular Therapy Program [address] [place] [address] New Mckinney MD 800 [facility] [address] [place] [address] 12/17/2024 11:30 AM EDT Appointment [facility] 2 [address] [place] [address] 12/18/2024 3:00 PM EDT Appointment [facility] 1 [address] [place] [address] 12/19/2024 3:00 PM EDT Appointment [facility] 2 [address] [place] [address] 12/20/2024 3:00 PM EDT Appointment [facility] 2 [address] [place] [address] 12/21/2024 3:00 PM EDT Appointment [facility] 2 [address] [place] [address] 12/22/2024 3:00 PM EDT Appointment [facility] 2 [address] [place] [address] 12/23/2024 3:00 PM EDT Appointment [facility] 2 [address] [place] [address] documented as of this encounter Visit Diagnoses Not on filedocumented in this encounter Additional Health Concerns Assessment Noted Time A fall risk assessment has been complete d for the patient 09/30/2024 9:33 AM EDT A Body Mass Index follow-up plan has been documented for the patient 05/28/2024 1:52 PM EST documented as of this encounter Care Teams Vp Talent Management Relationship Specialty Start Date End Date Jevon Vazquez MD [address] [place] [address] #1 #1 [place] [address] PCP - General 03/23/22 documented as of this encounter
--- OUTSIDE RECORDS SUMMARY | 2024-12-11 09:04 | XMS_ITS | Clinical Summary ---
Author Organization [facility] Address [address] [place] [address] Phone Care Team Providers Care Corrections Lieutenant Name Role Phone Jevon Vazquez MD Primary Care Provider [phone] Allergies Active Allergy Reactions Criticality Noted Date [...] L4-5 LAMINECTOMY; Surgeon: Ivan Bartholomew MD; Location: [facility] OR; Service: Spine Medical History [...] 5.6 % 11/14/2022 2:57 PM EDT PREFERRED [employer] Est. Avg Glucose 148 mg/dL 11/14/2022 2:57 PM EDT [employer], [facility] Blood VENOUS BLOOD / Unknown Venipuncture / Unknown 11/11/2022 3:46 PM EDT 11/11/2022 3:55 PM EDT Narrative [facility] - 11/14/2022 2:57 PM EDT REFERENCE RANGE: Normal: 4.0-5.6% Pre-diabetes: 5.7-6.4% Provisional diagnosis of diabetes: >6.4% Hgb F>10% and anything which shortens red cell survival, such as hemolytic anemia, or unstable hemoglobin variants such as HbSS, HbSC, or HbCC, will lower the HbA1c value associated with a given level of glycemic control. us Lexi Maloney DO CHEMISTRY ORDERABLES Final R esult [facility] [employer] [facility] [address] [facility] , [address] [place] [id number] * (ABNORMAL) BASIC METABOLIC PANEL (11/11/2022 3:46 [...] Res ult [facility] 1 [place] [address] * DX BONE DENSITY AXIAL SKELETON (07/25/2022 9:14 AM EDT) Anatomical Region Laterality Modality Dexa Scan 07/25/2022 Narrative 07/25/2022 3:45 PM EDT Indication: The patient is a female age 65 or older who requires a bone density assessment. Study was performed on [employer] [facility] [place] 5. Bone Density: Region BMD T-score Z-score [...] Insurance [place]ICARE [place] A [place] [address] MEDICARE SUPPLEMENT MEDICARE [place] PART A AND B Member Subscriber Plan / Payer (Ef fective 2016-Present) Name:Ashly Hernández Member ID:[id number] Relation to Subscriber:Self Name:Ashly Hernández Subscriber ID:[id number] Payer ID:Not on file Group ID:Not on file Type:Not on file Address: [address] MEDICARE SUPPLEMENT MED[place]ARE [place] PART A & B MEDICARE [place] PART A AND B Member Subscriber Plan / Payer (Ef fective 2016-Present) Name:Ashly Hernández Member ID:[id number] Relation to Subscriber:Self Name:Ashly Hernández Subscriber ID:[id number] Payer ID:Not on file Group ID:Not on file Type:Not on file Address: [address] MEDICARE SUPPLEMENT [employer] MEDICARE [place] PART A AND B [address] MEDICARE SUPPLEMENT Advance Directives For more information, please contact: [phone] * Full Code (Latest Code Status on File) Date Activated Date Inactivated Comments 11/14/2022 6:53 PM 11/16/2022 7:37 PM * Full Code Date Activated Date Inactivated Comments 11/12/2022 5:17 AM 11/14/2022 6:47 PM Care Teams Corrections Lieutenant Relationship Specialty Start Date End Date Jevon Vazquez MD [address] [place] [address] PCP - General Family Medicine 11/10/22
--- OUTSIDE RECORDS SUMMARY | 2024-12-11 09:04 | XMS_ITS | Encounter Summary ---
Author Organization Healthcare Address [address] [place] [address] Care Team Providers Care Powder Expert Name Role Phone Jevon Vazquez MD Primary Care Provider [phone] Encounter Details Date Type Department Care Team [...] Hematology/BMT and Cellular Therapy Program [address] [address] 12/17/2024 10:00 AM EDT Office Visit [facility] Hematology/BMT and Cellular Therapy Program [address] [place] [address] New Mckinney MD 800 [facility] [address] [place] [address] 12/17/2024 11:30 AM EDT Appointment [facility] 2 [address] [place] [address] 12/18/2024 3:00 PM EDT Appointment [facility] 1 [address] [place] [address] 12/19/2024 3:00 PM EDT Appointment [facility] 2 [address] [place] [address] 12/20/2024 3:00 PM EDT Appointment [facility] 2 [address] [place] [address] 12/21/2024 3:00 PM EDT Appointment [facility] 2 [address] [place] [address] 12/22/2024 3:00 PM EDT Appointment [facility] 2 [address] [place] [address] 12/23/2024 3:00 PM EDT Appointment [facility] 2 [address] [place] [address] documented as of this encounter Visit Diagnoses Not on filedocumented in this encounter Additional Health Concerns Assessment Noted Time A fall risk assessment has been complete d for the patient 09/30/2024 9:33 AM EDT A Body Mass Index follow-up plan has been documented for the patient 05/28/2024 1:52 PM EST documented as of this encounter Care Teams Powder Expert Relationship Specialty Start Date End Date Jevon Vazquez MD [address] [place] [address] #1 #1 [place] [address] PCP - General 03/23/22 documented as of this encounter
--- OUTSIDE RECORDS SUMMARY | 2024-12-11 09:04 | XMS_ITS | Encounter Summary ---
Author Organization [facility] Address [address] [place] [address] Care Team Providers Care Food Service Cashier Name Role Phone Jevon Vazquez MD Primary Care Provider [phone] Encounter Details Date Type Department Care Team ([facility] Contact Info) Description 11/13/2024 Orders Only [facility] Hematology/BMT and Cellular Therapy Program [address] [phone] 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 RN [facility] Acute myeloid [...] Hematology/BMT and Cellular Therapy Program [address] [address] 12/17/2024 10:00 AM EDT Office Visit [facility] Hematology/BMT and Cellular Therapy Program [address] [phone] New Mckinney MD 800 [facility] [address] [place] [address] 12/17/2024 11:30 AM EDT Appointment [facility] [address] [place] [address] 12/18/2024 3:00 PM EDT Appointment [facility] 1 [address] [place] [address] 12/19/2024 3:00 PM EDT Appointment [facility] 2 [address] [place] [address] 12/20/2024 3:00 PM EDT Appointment [facility] 2 [address] [place] [address] 12/21/2024 3:00 PM EDT Appointment [facility] 2 [address] [place] [address] 12/22/2024 3:00 PM EDT Appointment [facility] 2 [address] [place] [address] 12/23/2024 3:00 PM EDT Appointment [facility] [address] [place] [address] Scheduled Orders Name Type Priority Associated Diagnoses [...] as of this encounter Care Teams Food Service Cashier Relationship Specialty Start Date End Date Jevon Vazquez MD [address] [place] [address] #1 #1 [place] [address] PCP - General 03/23/22 documented as of this encounter
--- OUTSIDE RECORDS SUMMARY | 2024-12-11 09:04 | XMS_ITS | Encounter Summary ---
Author Organization Healthcare Address [address] [place] [address] Care Team Providers Care Heeler Machine Name Role Phone Jevon Vazquez MD Primary Care Provider [phone] Encounter Details Date Type Department Care Team [...] Hematology/BMT and Cellular Therapy Program [address] [address] 12/17/2024 10:00 AM EDT Office Visit [facility] Hematology/BMT and Cellular Therapy Program [address] [place] [address] New Mckinney MD 800 [facility] [address] [place] [address] 12/17/2024 11:30 AM EDT Appointment [facility] 2 [address] [place] [address] 12/18/2024 3:00 PM EDT Appointment [facility] 1 [address] [place] [address] 12/19/2024 3:00 PM EDT Appointment [facility] 2 [address] [place] [address] 12/20/2024 3:00 PM EDT Appointment [facility] 2 [address] [place] [address] 12/21/2024 3:00 PM EDT Appointment [facility] 2 [address] [place] [address] 12/22/2024 3:00 PM EDT Appointment [facility] 2 [address] [place] [address] 12/23/2024 3:00 PM EDT Appointment [facility] 2 [address] [place] [address] documented as of this encounter Visit Diagnoses Not on filedocumented in this encounter Additional Health Concerns Assessment Noted Time A fall risk assessment has been complete d for the patient 09/30/2024 9:33 AM EDT A Body Mass Index follow-up plan has been documented for the patient 05/28/2024 1:52 PM EST documented as of this encounter Care Teams Heeler Machine Relationship Specialty Start Date End Date Jevon Vazquez MD [address] [place] [address] #1 #1 [place] [address] PCP - General 03/23/22 documented as of this encounter
--- OUTSIDE RECORDS SUMMARY | 2024-12-11 09:04 | XMS_ITS | Encounter Summary ---
Author Organization Healthcare Address [address] [place] [address] Care Team Providers Care Rodent Exterminator Name Role Phone Jevon Vazquez MD Primary Care Provider [phone] Encounter Details Date Type Department Care Team [...] Hematology/BMT and Cellular Therapy Program [address] [address] 12/17/2024 10:00 AM EDT Office Visit [facility] Hematology/BMT and Cellular Therapy Program [address] [place] [address] New Mckinney MD 800 [facility] [address] [place] [phone] 12/17/2024 11:30 AM EDT Appointment [facility] 2 [address] [place] [address] 12/18/2024 3:00 PM EDT Appointment [facility] 1 [address] [place] [address] 12/19/2024 3:00 PM EDT Appointment [facility] 2 [address] [place] [address] 12/20/2024 3:00 PM EDT Appointment [facility] 2 [address] [place] [address] 12/21/2024 3:00 PM EDT Appointment [facility] 2 [address] [place] [address] 12/22/2024 3:00 PM EDT Appointment [facility] 2 [address] [place] [address] 12/23/2024 3:00 PM EDT Appointment [facility] 2 [address] [place] [address] documented as of this encounter Visit Diagnoses Not on filedocumented in this encounter Additional Health Concerns Assessment Noted Time A fall risk assessment has been complete d for the patient 09/30/2024 9:33 AM EDT A Body Mass Index follow-up plan has been documented for the patient 05/28/2024 1:52 PM EST documented as of this encounter Care Teams Rodent Exterminator Relationship Specialty Start Date End Date Jevon Vazqeuz MD [address] [place] [address] #1 #1 [place] [address] PCP - General 03/23/22 documented as of this encounter
--- OUTSIDE RECORDS SUMMARY | 2024-12-11 09:04 | XMS_ITS | Encounter Summary ---
Author Organization [facility] Address [address] [place] [address] Care Team Providers Care Precision Aircraft Structure Assembler Name Role Phone Jevon Vazquez MD Primary Care Provider [phone] Reason for Visit * Reason Comments Med Refill Encounter Details Date Type Department Care Team ([facility] Contact Info) Description 10/15/2024 Refill [facility] Hematology/BMT and Cellular Therapy Program [address] [phone] New Mckinney MD 800 [facility] [address] [place] [phone] Social History Tobacco Use Types Packs/Day Years [...] Team ([facility] Contact Info) Description 12/17/2024 9:30 AM EDT Clinical Support [facility] Hematology/BMT and Cellular Therapy Program [address] [phone] 12/17/2024 10:00 AM EDT Office Visit [facility] Hematology/BMT and Cellular Therapy Program [address] [address] New Mckinney MD [address] [facility] [address] [place] [address] 12/17/2024 11:30 AM EDT Appointment [facility] 2 [address] [place] [address] 12/18/2024 3:00 PM EDT Appointment [facility] 1 [address] [place] [address] 12/19/2024 3:00 PM EDT Appointment [facility] 2 [address] [place] [address] 12/20/2024 3:00 PM EDT Appointment [facility] 2 [address] [place] [address] 12/21/2024 3:00 PM EDT Appointment [facility] 2 [address] [place] [address] 12/22/2024 3:00 PM EDT Appointment [facility] 2 [address] [place] [address] 12/23/2024 3:00 PM EDT Appointment [facility] 2 [address] [place] [address] documented as of this encounter Visit Diagnoses Not on filedocumented in this encounter Additional Health Concerns Assessment Noted Time A fall risk assessment has been complete d for the patient 09/30/2024 9:33 AM EDT A Body Mass Index follow-up plan has been documented for the patient 05/28/2024 1:52 PM EST documented as of this encounter Care Teams Precision Aircraft Structure Assembler Relationship Specialty Start Date End Date Jevon Vazquez MD [address] [place] [address] #1 #1 [place] [address] PCP - General 03/23/22 documented as of this encounter
--- OUTSIDE RECORDS SUMMARY | 2024-12-11 09:04 | XMS_ITS | Encounter Summary ---
Author Organization [facility] Address [address] [place] [address] Care Team Providers Care Casino Slot Supervisor Name Role Phone Jevon Vazquez MD Primary Care Provider [phone] Encounter Details Date Type Department Care Team ([facility] Contact Info) Description 11/12/2024 Telephone [facility] Hematology/BMT and Cellular Therapy Program [address] [address] Zonia Hoffman, STOCK PREPARATION OPERATOR 800 [facility] [address] [place] [phone] Social History Tobacco Use Types Packs/Day Years [...] Hematology/BMT and Cellular Therapy Program [address] [place] [address] 12/17/2024 10:00 AM EDT Office Visit [facility] Hematology/BMT and Cellular Therapy Program [address] [place] [address] New Mckinney MD 800 [facility] [address] [place] [address] 12/17/2024 11:30 AM EDT Appointment [facility] 2 [address] [place] [address] 12/18/2024 3:00 PM EDT Appointment [facility] 1 [address] [place] [address] 12/19/2024 3:00 PM EDT Appointment [facility] 2 [address] [place] [address] 12/20/2024 3:00 PM EDT Appointment [facility] 2 [address] [place] [address] 12/21/2024 3:00 PM EDT Appointment [facility] 2 [address] [place] [address] 12/22/2024 3:00 PM EDT Appointment [facility] 2 [address] [place] [address] 12/23/2024 3:00 PM EDT Appointment [facility] 2 [address] [place] [address] documented as of this encounter Visit Diagnoses Not on filedocumented in this encounter Additional Health Concerns Assessment Noted Time A fall risk assessment has been complete d for the patient 09/30/2024 9:33 AM EDT A Body Mass Index follow-up plan has been documented for the patient 05/28/2024 1:52 PM EST documented as of this encounter Care Teams Casino Slot Supervisor Relationship Specialty Start Date End Date Jevon Vazquez MD [address] [place] [address] #1 #1 [place] [address] PCP - General 03/23/22 documented as of this encounter
--- OUTSIDE RECORDS SUMMARY | 2024-12-11 09:04 | XMS_ITS | Encounter Summary ---
Author Organization Healthcare Address [address] [place] [address] Care Team Providers Care Bookkeeping Machine Operator Name Role Phone Jevon Vazquez MD Primary Care Provider [phone] Encounter Details Date Type Department Care Team [...] Hematology/BMT and Cellular Therapy Program [address] [address] 12/17/2024 10:00 AM EDT Office Visit [facility] Hematology/BMT and Cellular Therapy Program [address] [place] [address] New Mckinney MD 800 [facility] [address] [place] [address] 12/17/2024 11:30 AM EDT Appointment [facility] 2 [address] [place] [address] 12/18/2024 3:00 PM EDT Appointment [facility] 1 [address] [place] [address] 12/19/2024 3:00 PM EDT Appointment [facility] 2 [address] [place] [address] 12/20/2024 3:00 PM EDT Appointment [facility] 2 [address] [place] [address] 12/21/2024 3:00 PM EDT Appointment [facility] 2 [address] [place] [address] 12/22/2024 3:00 PM EDT Appointment [facility] 2 [address] [place] [address] 12/23/2024 3:00 PM EDT Appointment [facility] 2 [address] [place] [address] documented as of this encounter Visit Diagnoses Not on filedocumented in this encounter Additional Health Concerns Assessment Noted Time A fall risk assessment has been complete d for the patient 09/30/2024 9:33 AM EDT A Body Mass Index follow-up plan has been documented for the patient 05/28/2024 1:52 PM EST documented as of this encounter Care Teams Bookkeeping Machine Operator Relationship Specialty Start Date End Date Jevon Vazquez MD [address] [place] [address] #1 #1 [place] [address] PCP - General 03/23/22 documented as of this encounter
--- OUTSIDE RECORDS SUMMARY | 2024-12-11 09:04 | XMS_ITS | Encounter Summary ---
Author Organization Healthcare Address [address] [place] [address] Care Team Providers Care Grinder Set Up [...] Hematology/BMT and Cellular Therapy Program [address] [address] 12/17/2024 10:00 AM EDT Office Visit [facility] Hematology/BMT and Cellular Therapy Program [address] [place] [address] New Mckinney MD 800 [facility] [address] [place] [address] 12/17/2024 11:30 AM EDT Appointment [facility] 2 [address] [place] [address] 12/18/2024 3:00 PM EDT Appointment [facility] 1 [address] [place] [address] 12/19/2024 3:00 PM EDT Appointment [facility] 2 [address] [place] [address] 12/20/2024 3:00 PM EDT Appointment [facility] 2 [address] [place] [address] 12/21/2024 3:00 PM EDT Appointment [facility] 2 [address] [place] [address] 12/22/2024 3:00 PM EDT Appointment [facility] 2 [address] [place] [address] 12/23/2024 3:00 PM EDT Appointment [facility] 2 [address] [place] [address] documented as of this encounter Visit Diagnoses Not on filedocumented in this encounter Additional Health Concerns Assessment Noted Time A fall risk assessment has been complete d for the patient 09/30/2024 9:33 AM EDT A Body Mass Index follow-up plan has been documented for the patient 05/28/2024 1:52 PM EST documented as of this encounter Care Teams Grinder Set Up Operator Jig Relationship Specialty Start Date End Date Jevon Vazquez MD [address] [place] [address] #1 #1 [place] [address] PCP - General 03/23/22 documented as of this encounter
[2024-12-11 09:23] LABS: Hematocrit 25.9 % (37.0-47.0); Hemoglobin 8.9 g/dL (12.2-16.2); Immature Granulocytes % 0 %; Mean Corpuscular HGB Conc 34.4 g/dL (31.8-35.4); Mean Corpuscular Hemoglobin 33.6 pg (27.0-31.2); Mean Corpuscular Volume 97.7 fl (81-99); Nucleated Red Blood Cells % 0 %; Red Blood Count 2.65 M/mm3 (4.20-5.40); Red Cell Distribution Width-SD 77.8 fL
[2024-12-11 09:28] LABS: Albumin Level 3.7 g/dl (3.5-5.0); Chloride 108 mmol/L (98-107); Potassium 3.8 mmoL/L (3.5-5.1); Sodium 136 mmol/L (136-145)
[2024-12-11 09:30] LABS: Blood Urea Nitrogen 26 mg/dl (7-17); Creatinine Clearance Estimated 37 mL/min (50-200); Creatinine,Serum 1.20 mg/dl (0.52-1.04); Estimated Glomerular Filt Rate 44 ml/min (>60); GFR (African American) 53 ML/MIN (>60)
[2024-12-11 09:31] LABS: Alanine Aminotransferase 11 U/L (12-78); Albumin/Globulin Ratio 1.7 (1.1-1.8); Alkaline Phosphatase 41 U/L (38-126); Anion Gap 8.8 mEq/L (5-15); Aspartate Amino Transferase 35 U/L (14-36); Bilirubin,Total 0.4 mg/dl (0.2-1.3); Calcium 9.6 mg/dl (8.4-10.2); Carbon Dioxide 23 mmol/L (22.0-30.0); Globulin 2.2 g/dL (1.3-3.2); Glucose 127 mg/dl (74-100); Total Protein,Serum 5.9 g/dl (6.3-8.2)
[2024-12-11 09:43] LABS: Platelet Count 9 K/mm3 (142-424); White Blood Count 1.9 K/mm3 (4.8-10.8)
[2024-12-11 10:32] LABS: Total Cells Counted 100
[2024-12-11 10:34] LABS: Anisocytosis 1+
[2024-12-11] MEDS: 0.9 % SODIUM CHLORIDE 250 ML 25 ML IV (14:50)
[2024-12-11] MEDS: SODIUM CHLORIDE 0.9% 10ML FLUSH SYRINGE 10 ML IV (15:45)
--- NOTE | 2024-12-11 15:52 | PC.NURSE ---
30 minute post transfusion vital signs for transfusion of one unit platelets stable, 1545 BP 129/68, pulse 76, resp 14, O2 sat 100% room air, temp 97.8. Patient discharged home stable/denies complaints. Patient tolerated platelets well with no s/s transfusion reaction or problems noted.
== END 2024-12-11 15:45 | disposition home or self-care (01) ==
LOC: INF 08:57
PROVIDERS: PCP Family Medicine; Visit Provider Internal Medicine Medical Oncology
DX: C92.00 Acute myeloblastic leukemia, not having achieved remission (principal)
CPT/HCPCS: 36430; 36591; 80053; 85007; 85025; 85027; 86900; 86901; J1642; J7050; P9034

== ENCOUNTER 2024-12-16 08:56 | Outpatient (CLI) | payer MEDICARE, BC, SELFPAY ==
[2024-12-16] VITALS (10 sets, daily range): BP systolic 111–135; BP diastolic 46–75; PULSE 67–84; RESP 18–20; TEMP 36.2–36.4; O2SAT 96–98; BMI 22.1
--- OUTSIDE RECORDS SUMMARY | 2024-12-16 09:08 | XMS_ITS | Encounter Summary ---
Author Organization [facility] Address [address] [place] [address] Care Team Providers Care Contract Driver Name Role Phone Jevon Vazquez MD Primary Care Provider [phone] Reason for Visit * Reason Comments Med Refill Encounter Details Date Type Department Care Team ([facility] Contact Info) Description 12/09/2024 Refill [facility] Hematology/BMT and Cellular Therapy Program [address] [phone] Zonia Hoffman, BANQUET SERVER 800 [facility] [address] [place] [phone] Social History Tobacco Use Types Packs/Day Years [...] ([facility] Contact Info) Description 12/30/2024 8:30 AM EDT Clinical Support [facility] Hematology/BMT and Cellular Therapy Program [address] [phone] 12/30/2024 9:00 AM EDT Office Visit [facility] Hematology/BMT and Cellular Therapy Program [address] [phone] New Mckinney MD [address] [facility] [address] [place] [address] 12/30/2024 10:30 AM EDT Appointment [facility] 1 [address] [place] [address] 12/31/2024 3:00 PM EDT Appointment [facility] 1 [address] [place] [address] 01/01/2025 3:00 PM EDT Appointment [facility] 1 [address] [place] [address] 01/02/2025 2:00 PM EDT Appointment [facility] 1 [address] [place] [address] 01/03/2025 2:00 PM EDT Appointment [facility] 1 [address] [place] [address] 01/04/2025 2:00 PM EDT Appointment [facility] 1 [address] [place] [address] 01/05/2025 4:00 PM EDT Appointment [facility] 1 [address] [place] [address] documented as of this encounter Visit Diagnoses Not on filedocumented in this encounter Additional Health Concerns Assessment Noted Time A fall risk assessment has been complete d for the patient 09/30/2024 9:33 AM EDT A Body Mass Index follow-up plan has been documented for the patient 05/28/2024 1:52 PM EST documented as of this encounter Care Teams Contract Driver Relationship Specialty Start Date End Date Jevon Vazquez MD [address] [place] [address] #1 #1 [place] [address] PCP - General 03/23/22 documented as of this encounter
--- OUTSIDE RECORDS SUMMARY | 2024-12-16 09:08 | XMS_ITS ---
Author Organization [facility] Address [address] [place] [address] Care Team Providers Care Sales Teacher Name Role Phone Jevon Vazquez MD Primary Care Provider [phone] Active Problems Problem Noted Date Diagnosed Date [...]
--- OUTSIDE RECORDS SUMMARY | 2024-12-16 09:08 | XMS_ITS | Encounter Summary ---
Author Organization Healthcare Address [address] [place] [address] Care Team Providers Care Workers Compensation Legal Secretary Name Role Phone Jevon Vazquez MD Primary Care Provider [phone] Encounter Details Date Type Department Care Team ([facility] Contact Info) Description 12/11/2024 Telephone [facility] Hematology/BMT and Cellular Therapy Program [address] [address] New Mckinney MD 800 [facility] [address] [place] [phone] Social History Tobacco Use Types Packs/Day Years [...] encounter Miscellaneous Notes * Telephone Encounter - Sarah Varma RN - 12/11/2024 12:17 PM EDT Rn uploaded recent labs to [facility] and rescheduled appointments to 12/30. RN returned call to patient with updated plan of care and schedule. documented in this encounter Plan of Treatment Upcoming Encounters Date Type Department Care Team (Late Contact Info) Description 12/30/2024 8:30 AM EDT Clinical Support PAV Hematology/BMT and Cellular Therapy Program [address] [place] [address] 12/30/2024 9:00 AM EDT Office Visit PAV Hematology/BMT and Cellular Therapy Program [address] [place] [address] New Mckinney MD 800 [facility] [address] [place] [address] 12/30/2024 10:30 AM EDT Appointment [facility] 1 [address] [place] [address] 12/31/2024 3:00 PM EDT Appointment [facility] 1 [address] [place] [address] 01/01/2025 3:00 PM EDT Appointment [facility] 1 [address] [place] [address] 01/02/2025 2:00 PM EDT Appointment [facility] 1 [address] [place] [address] 01/03/2025 2:00 PM EDT Appointment [facility] 1 [address] [place] [address] 01/04/2025 2:00 PM EDT Appointment [facility] 1 [address] [place] [address] 01/05/2025 4:00 PM EDT Appointment [facility] 1 [address] [place] [address] documented as of this encounter Visit Diagnoses Not on filedocumented in this encounter Additional Health Concerns Assessment Noted Time A fall risk assessment has been complete d for the patient 09/30/2024 9:33 AM EDT A Body Mass Index follow-up plan has been documented for the patient 05/28/2024 1:52 PM EST documented as of this encounter Care Teams Workers Compensation Legal Secretary Relationship Specialty Start Date End Date Jevon Vazquez MD [address] [place] [address] #1 #1 [place] [address] PCP - General 03/23/22 documented as of this encounter
--- OUTSIDE RECORDS SUMMARY | 2024-12-16 09:08 | XMS_ITS | Encounter Summary ---
Author Organization [facility] Address [address] [place] [address] Care Team Providers Care Casting House Laborer Name Role Phone Jevon Vazquez MD Primary Care Provider [phone] Encounter Details Date Type Department Care Team ([facility] Contact Info) Description 10/29/2024 Refill [facility] Hematology/BMT and Cellular Therapy Program [address] [phone] Zonia Hoffman, MILLER HELPER DISTILLERY 800 [facility] [address] [place] [phone] Acute myeloid leukemia not having achieved remission [...] [facility] Description 12/30/2024 8:30 AM EDT Clinical Support [facility] Hematology/BMT and Cellular Therapy Program [address] [address] 12/30/2024 9:00 AM EDT Office Visit [facility] Hematology/BMT and Cellular Therapy Program [address] [place] [address] New Mckinney MD 800 [address] [address] [place] [address] 12/30/2024 10:30 AM EDT Appointment [facility] 1 [address] [place] [address] 12/31/2024 3:00 PM EDT Appointment [facility] 1 [address] [place] [address] 01/01/2025 3:00 PM EDT Appointment [facility] 1 [address] [place] [address] 01/02/2025 2:00 PM EDT Appointment [facility] 1 [address] [place] [address] 01/03/2025 2:00 PM EDT Appointment [facility] 1 [address] [place] [address] 01/04/2025 2:00 PM EDT Appointment [facility] 1 [address] [place] [address] 01/05/2025 4:00 PM EDT Appointment [facility] 1 [address] [place] [address] documented as of this encounter Visit Diagnoses [...] as of this encounter Care Teams Casting House Laborer Relationship Specialty Start Date End Date Jevon Vazquez MD [address] [place] [address] #1 #1 [place] [address] PCP - General 03/23/22 documented as of this encounter
--- OUTSIDE RECORDS SUMMARY | 2024-12-16 09:08 | XMS_ITS | Encounter Summary ---
Author Organization [facility] Address [address] [place] [address] Care Team Providers Care Router Tender Name Role Phone Jevon Vazquez MD Primary Care Provider [phone] Reason for Visit * Reason Comments Med Refill Encounter Details Date Type Department Care Team ([facility] Contact Info) Description 01/30/2024 Refill [facility] Hematology/BMT and Cellular Therapy Program [address] [place] [phone] New Mckinney MD 800 [facility] [address] [place] [phone] Social History Tobacco Use Types Packs/Day Years [...] [facility] Info) Description 12/30/2024 8:30 AM EDT Clinical Support [facility] Hematology/BMT and Cellular Therapy Program [address] [place] [address] 12/30/2024 9:00 AM EDT Office Visit [facility] Hematology/BMT and Cellular Therapy Program [address] [phone] New Mckinney MD [address] [facility] [address] [place] [address] 12/30/2024 10:30 AM EDT Appointment [facility] 1 [address] [place] [address] 12/31/2024 3:00 PM EDT Appointment [facility] 1 [address] [place] [address] 01/01/2025 3:00 PM EDT Appointment [facility] 1 [address] [place] [address] 01/02/2025 2:00 PM EDT Appointment [facility] 1 [address] [place] [address] 01/03/2025 2:00 PM EDT Appointment [facility] 1 [address] [place] [address] 01/04/2025 2:00 PM EDT Appointment [facility] 1 [address] [place] [address] 01/05/2025 4:00 PM EDT Appointment [facility] 1 [address] [place] [address] documented as of this encounter Visit Diagnoses Not on filedocumented in this encounter Additional Health Concerns Assessment Noted Time A fall risk assessment has been complete d for the patient 01/11/2024 9:16 AM EDT A Body Mass Index follow-up plan has been documented for the patient 01/21/2024 6:16 AM EDT documented as of this encounter Care Teams Router Tender Relationship Specialty Start Date End Date Jevon Vazquez MD [address] [place] [address] #1 #1 [place] [address] PCP - General 03/23/22 documented as of this encounter
--- OUTSIDE RECORDS SUMMARY | 2024-12-16 09:08 | XMS_ITS | Encounter Summary ---
Author Organization Healthcare Address [address] [place] [address] Care Team Providers Care Wound Care Physician Name Role Phone Jevon Vazquez MD Primary Care Provider [phone] Encounter Details Date Type Department Care Team (Late Contact Info) Description 11/27/2024 Telephone [facility] Hematology/BMT and Cellular Therapy Program [address] [phone] Zonia Hoffman, INSPECTOR FLOOR 800 [facility] [address] [place] [phone] Social History Tobacco Use Types Packs/Day Years [...] Cellular Therapy Program 750 [facility] [place] [address] 12/30/2024 9:00 AM EDT Office Visit [facility] Hematology/BMT and Cellular Therapy Program 750 [facility] [place] [address] New Mckinney MD 800 [facility] [address] [place] [phone] 12/30/2024 10:30 AM EDT Appointment [facility] Infusion Clinic 1 [address] [place] [address] 12/31/2024 3:00 PM EDT Appointment [facility] 1 [address] [place] [address] 01/01/2025 3:00 PM EDT Appointment [facility] 1 [address] [place] [address] 01/02/2025 2:00 PM EDT Appointment [facility] 1 [address] [place] [address] 01/03/2025 2:00 PM EDT Appointment [facility] 1 [address] [place] [address] 01/04/2025 2:00 PM EDT Appointment [facility] Infusion Clinic 1 [address] [place] [address] 01/05/2025 4:00 PM EDT Appointment [facility] 1 [address] [place] [address] documented as of this encounter Visit Diagnoses Not on filedocumented in this encounter Additional Health Concerns Assessment Noted Time A fall risk assessment has been complete d for the patient 09/30/2024 9:33 AM EDT A Body Mass Index follow-up plan has been documented for the patient 05/28/2024 1:52 PM EST documented as of this encounter Care Teams Wound Care Physician Relationship Specialty Start Date End Date Jevon Vazquez MD [address] [place] [address] #1 #1 [place] [address] PCP - General 03/23/22 documented as of this encounter
--- OUTSIDE RECORDS SUMMARY | 2024-12-16 09:08 | XMS_ITS | Encounter Summary ---
Author Organization Healthcare Address [address] [place] [address] Care Team Providers Care Modeling Agency Manager Name Role Phone Jevon Vazquez MD Primary Care Provider [phone] Encounter Details Date Type Department Care Team [...] Care Team (Late st Contact Info) Description 12/30/2024 8:30 AM EDT Clinical Support [facility] Hematology/BMT and Cellular Therapy Program [address] [phone] 12/30/2024 9:00 AM EDT Office Visit [facility] Hematology/BMT and Cellular Therapy Program [address] [place] [address] New Mckinney MD 800 [facility] [address] [place] [phone] 12/30/2024 10:30 AM EDT Appointment [facility] 1 [address] [place] [address] 12/31/2024 3:00 PM EDT Appointment [facility] 1 [address] [place] [address] 01/01/2025 3:00 PM EDT Appointment [facility] 1 [address] [place] [address] 01/02/2025 2:00 PM EDT Appointment [facility] 1 [address] [place] [address] 01/03/2025 2:00 PM EDT Appointment [facility] 1 [address] [place] [address] 01/04/2025 2:00 PM EDT Appointment [facility] 1 [address] [place] [address] 01/05/2025 4:00 PM EDT Appointment [facility] 1 [address] [place] [address] documented as of this encounter Visit Diagnoses Not on filedocumented in this encounter Additional Health Concerns Assessment Noted Time A fall risk assessment has been complete d for the patient 09/30/2024 9:33 AM EDT A Body Mass Index follow-up plan has been documented for the patient 05/28/2024 1:52 PM EST documented as of this encounter Care Teams Modeling Agency Manager Relationship Specialty Start Date End Date Jevon Vazquez MD [address] [place] [address] #1 [address]1 [place] [address] PCP - General 03/23/22 documented as of this encounter
--- OUTSIDE RECORDS SUMMARY | 2024-12-16 09:09 | XMS_ITS | Encounter Summary ---
Author Organization Healthcare Address [address] [place] [address] Care Team Providers Care Special Assemblies Supervisor Name Role Phone Jevon Vazquez MD Primary Care Provider [phone] Encounter Details Date Type Department Care Team [...] Hematology/BMT and Cellular Therapy Program [address] [phone] 12/30/2024 9:00 AM EDT Office Visit [facility] Hematology/BMT and Cellular Therapy Program [address] [place] [address] New Mckinney MD 800 [facility] [address] [place] [phone] 12/30/2024 10:30 AM EDT Appointment [facility] 1 [address] [place] [address] 12/31/2024 3:00 PM EDT Appointment [facility] 1 [address] [place] [address] 01/01/2025 3:00 PM EDT Appointment [facility] 1 [address] [place] [address] 01/02/2025 2:00 PM EDT Appointment [facility] 1 [address] [place] [address] 01/03/2025 2:00 PM EDT Appointment [facility] 1 [address] [place] [address] 01/04/2025 2:00 PM EDT Appointment [facility] 1 [address] [place] [address] 01/05/2025 4:00 PM EDT Appointment [facility] 1 [address] [place] [address] documented as of this encounter Visit Diagnoses Not on filedocumented in this encounter Additional Health Concerns Assessment Noted Time A fall risk assessment has been complete d for the patient 09/30/2024 9:33 AM EDT A Body Mass Index follow-up plan has been documented for the patient 05/28/2024 1:52 PM EST documented as of this encounter Care Teams Special Assemblies Supervisor Relationship Specialty Start Date End Date Jevon Vazquez MD [address] [place] [address] #1 [address]1 [place] [address] PCP - General 03/23/22 documented as of this encounter
--- OUTSIDE RECORDS SUMMARY | 2024-12-16 09:09 | XMS_ITS | Clinical Summary ---
Author Organization [facility] Address [address] [place] [address] Care Team Providers Care Body Make Up Artist Name Role Phone Jevon Vazquez MD Primary Care Provider [phone] Allergies No known active allergies Medications amLODIPine [...] Encounters Date Type Department Care Team Description 12/11/2024 Telephone [facility] Hematology/BMT and Cellular Therapy Program [address] [phone] New Mckinney MD 12/10/2024 Travel 12/09/2024 Refill [facility] Hematology/BMT and Cellular Therapy Program [address] [phone] Zonia Hoffman, MECHANIC WELDER TRUCK DRIVER 11/27/2024 Telephone [facility] Hematology/BMT and Cellular Therapy Program [address] [phone] Zonia Hoffman, MECHANIC WELDER TRUCK DRIVER 11/26/2024 Travel 11/25/2024 Travel 11/24/2024 Travel 11/23/2024 Travel 11/22/2024 Travel 11/13/2024 Orders Only [facility] Hematology/BMT and Cellular Therapy Program [address] [phone] 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, 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) 11/12/2024 Travel 11/12/2024 Telephone [facility] Hematology/BMT and Cellular Therapy Program [address] [phone] Zonia Hoffman, MECHANIC WELDER TRUCK DRIVER 11/11/2024 Travel 11/10/2024 Travel 11/09/2024 Travel 11/08/2024 Travel 11/08/2024 Refill [facility] Hematology/BMT and Cellular Therapy Program [address] [address] New Mckinney MD 11/07/2024 Travel 10/29/2024 Refill [facility] Hematology/BMT and Cellular Therapy Program [address] [phone] Zonia Hoffman, MECHANIC WELDER TRUCK DRIVER 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); Immunosuppressed status (CMS/HCC) 10/28/2024 Telephone [facility] Hematology/BMT and Cellular Therapy Program [address] [phone] Zonia Hoffman, MECHANIC WELDER TRUCK DRIVER 10/27/2024 Telephone [facility] Hematology/BMT and Cellular Therapy Program [address] [phone] Zonia Hoffman, MECHANIC WELDER TRUCK DRIVER 10/27/2024 Travel 10/26/2024 Travel 10/24/2024 Travel 10/23/2024 Travel 10/22/2024 Travel 10/15/2024 Refill [facility] Hematology/BMT and Cellular Therapy Program [address] [address] New Mckinney MD 10/14/2024 Refill [facility] Hematology/BMT and Cellular Therapy Program [address] [address] New Mckinney MD 10/13/2024 Telephone [facility] Hematology/BMT and Cellular Therapy Program [address] [address] Zonia Hoffman, MECHANIC WELDER TRUCK DRIVER 10/13/2024 Travel 10/12/2024 Travel 10/11/2024 Travel 10/09/2024 Travel 10/08/2024 Travel 10/08/2024 Orders Only [facility] Hematology/BMT and Cellular Therapy Program [address] [facility], [address] [place] [phone] 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, 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) 10/07/2024 Travel 09/30/2024 9:30 AM EDT Office Visit [facility] Hematology/BMT and Cellular Therapy Program [address] [facility], [address] [place] [phone] Zonia Hoffman APRN 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) 09/30/2024 9:00 AM EDT Clinical Support [facility] Hematology/BMT and Cellular Therapy Program [address] [facility], [address] [place] [phone] Jyoti Kemp 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) 09/30/2024 Telephone [facility] Hematology/BMT and Cellular Therapy Program [address] [facility], [address] [place] [phone] Zoraida Good RN 09/30/2024 Travel 09/29/2024 Travel 09/28/2024 Travel 09/27/2024 Travel 09/26/2024 Travel 09/25/2024 Travel 09/24/2024 Travel 09/23/2024 Travel 09/19/2024 12:00 PM EDT Procedure Visit [facility] Hematology/BMT and Cellular Therapy Program [address] [facility], [address] [place] [phone] Lexi Ferraro, MECHANIC WELDER TRUCK DRIVER 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) 09/19/2024 9:30 AM EDT Clinical Support [facility] [address] [facility], [address] [place] [address] 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) 09/19/2024 7:30 AM EDT Clinical Support [facility] Hematology/BMT and Cellular Therapy Program [address] [facility], [address] [place] [phone] 09/19/2024 Telephone [facility] Hematology/BMT and Cellular Therapy Program [address] [place] [phone] Romana Richmond RN 09/19/2024 Orders Only [facility] Hematology/BMT and Cellular Therapy Program [address] [facility], [address] [place] [address] [place] [phone] 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 RN 09/19/2024 Travel 09/15/2024 Telephone [facility] Hematology/BMT and Cellular Therapy Program [address] [facility], [address] [place] [address] [place] [phone] Zonia Hoffman, RODDY 09/15/2024 Travel from Last 3 Months Immunizations Immunization [...] Cellular Therapy Program [address] [facility], [facility] [place] [address] 12/30/2024 9:00 AM EDT Office Visit [facility] Hematology/BMT and Cellular Therapy Program [address] [facility], [address] [place] [address] [place] [address] New Mckinney MD 800 [facility] [address] [place] [address] 12/30/2024 10:30 AM EDT Appointment [facility] 1 [address] [place] [address] 12/31/2024 3:00 PM EDT Appointment [facility] 1 [address] [place] [address] 01/01/2025 3:00 PM EDT Appointment [facility] 1 [address] [place] [address] 01/02/2025 2:00 PM EDT Appointment [facility] 1 [address] [place] [address] 01/03/2025 2:00 PM EDT Appointment [facility] 1 [address] [place] [address] 01/04/2025 2:00 PM EDT Appointment [facility] 1 [address] [place] [address] 01/05/2025 4:00 PM EDT Appointment [facility] 1 [address] [place] [address] Health Maintenance Due Date Last Done Comments [...] UKY-Zoster Vaccines (1 of 2) 05/16/2023 03/21/2023 [id number] Vaccine ( season) 2023 02/18/2021, 07/10/2020, 06/12/2020 [...] this topic Medical Devices Implanted Type Area Public Health Engineer Device Identifier Shelf Expiration Date Model / Serial / Lot Port Clearvue Power 8fr - [id number] Implanted:Qty: 1 on 01/21/2024 by Ness Sargent MD at [facility] [id number] / / Procedures Procedure Name Priority Date/Time [...] AM EDT 09/30/2024 9:34 AM EDT Narrative [facility] - 09/30/2024 11:07 AM EDT Therapeutic decision making should be based on absolute values, rather than percentages. us Zonia Hoffman APRN LAB BLOOD ORDERABLES Final Res ult [facility] [address] [place] [address] * (ABNORMAL) Comprehensive Metabolic Panel, Plasma (09/30/2024 [...] APRN LAB BLOOD ORDERABLES Final Res ult [facility] [address] [place] [address] * BIOPSY BONE MARROW (09/19/2024 12:00 PM [...] at the site and an 11 gauge Fixmoshidi needle was inserted into the right posterior [...] Platelet count (09/19/2024 10:04 AM EDT) Pathologist [facility] Platelet Count 61(L) 155 - 369 10*3/uL LAB HEMATOLOGY METHOD 09/19/2024 10:19 AM EDT [facility] Blood Blood sample taken from central line / Unknown (Port) Long-term Catheter / Unknown 09/19/2024 10:04 AM EDT 09/19/2024 10:18 AM EDT New Mckinney MD LAB BLOOD ORDERABLES Final Re sult Performing Organization Address City/[facility] Co de Phone Number [facility] [address] [place] [address] * Transfuse platelets, Irradiated (09/19/2024 10:02 AM EDT) Lexi Ferraro APRN BLOOD TRANSFUSION ORDERABL ES Final Result * Prepare Leukocyte Reduced Platelets (09/19/2024 9:08 AM EDT) Pathologist [facility] Product Code [id number] BLOO D BANK Dispense Status Transfused BLOOD BANK Blood Expiration Date [id number] BLOOD BANK Unit Number [id number] CH B LOOD BANK Product Blood Type 6200 BLOOD BANK Blood Type A+ BLOOD BANK us Provider Not In System BLOOD BANK PRODUCT ORD ERABLES Final Result Performing Organization Address [facility] de Phone Number BLOOD BANK [address] [place] [address], * Myeloid Focused Panel, 50 gene (09/19/2024 7:29 AM EDT) Pathologist [facility] Interpretation The following two (2) genes, TP53 and DNMT3A, with persistent variants have been detected in this bone marrow specimen. The variant, p.[id number], in TP53 gene and the variant, p.[id number], in the RUNX 1 gene are not detectable at current cutoff and coverage established in this lab. Gene: TP53 Mutation: c.814G>A; p.[id number] Allele Frequency (%): 37% (45% Dec 2023) ID: [id number] Gene: DNMT3A Mutation: c.1522delC; p.[id number] 3 Allele Frequency (%): 36% (48% Dec 2023) Additional Details on Mutation Identified: Gene Transcript Genome Chrom Coordinate RefVar DNMT3A [id number] Hg19 2 [id number] delC TP53 NM_000546.5 Hg19 17 [id number] G>A 09/29/2024 4:05 PM EDT [facility] Methodology The following 50 genes [...] then sequenced on the Illumina NextSeq 2000 ([employer] [place]). A custom bioinformatics pipeline aligns [...] of hematologic malignancies. 09/29/2024 4:05 PM EDT [facility] Disclaimer This test was developed and its performance characteristics determined by the Clinical Molecular and Genomic Pathology Laboratory at the [facility]. It has not been cleared [...] clinical laboratory testing. 09/29/2024 4:05 PM EDT [facility] Pathologist Signature Reviewed by: Corey Tejada 09/29/2024 4:05 PM EDT [facility] Bone Marrow Specimen from bone marrow obtained by aspiration / Unknown Non-blood Collection / Unknown 09/19/2024 7:29 AM EDT 09/19/2024 12:03 PM EDT us New Mckinney MD LAB MOLECULAR DIAGNOSTICS ORD ERABLES Final Result [facility] [address] [place] [address], * Chromosome Karyotype, Oncology (09/19/2024 7:29 AM EDT) Specimen Type Bone Marrow 09/24/2024 2:37 PM EDT [facility] Clinical Indication Myelodysplastic Syndrome 09/24/2024 2:37 PM EDT [facility] Specimen Adequacy Adequate 025 2:37 PM EDT [facility] Chromosome Analysis Result Giemsa-banded metaphase cells from unstimulated bone marrow cultures showed a 46,XX[20] chromosome pattern. 09/24/2024 2:37 PM EDT [facility] Interpretation Normal female chromosome analysis. No clonal abnormalities were detected at current resolution. Clinical correlation is recommended. # cells counted = 20 # cells analyzed = 20 # cells karyotyped = 2 Band resolution: 450-525 09/24/2024 2:37 PM EDT [facility] Pathologist Signature Reviewed by: Corey Tejada 09/24/2024 2:37 PM EDT [facility] Bone Marrow Non-blood Collection / Unknown 09/19/2024 7:29 AM EDT 09/19/2024 12:35 PM EDT New Mckinney MD LAB CYTOGENETICS ORDERABLES F inal Result [facility] [address] [place] [address] * Leukemia/Lymphoma - Immunophenotyping by Flow Cytometry (09/19/2024 7:29 AM EDT) Clinical Indication AML 09/22/2024 10:29 AM EDT [facility] Flow Cytometry Interpretation A. BONE MARROW FOR FLOW CYTOMETRY: - MIXED MARROW ELEMENTS WITH NO EVIDENCE OF INCREASED BLASTS OR ABNORMAL LYMPHOID POPULATIONS, SEE COMMENT. 09/22/2024 10:29 AM EDT [facility] Comments CD45/side scatter analysis [...] surface light chains 09/22/2024 10:29 AM EDT [facility] Disclaimer This test was developed and its performance characteristics determined by the Immuno-Molecular Pathology Laboratory at the [facility]. It has not been cleared [...] on the report. 09/22/2024 10:29 AM EDT [facility] Pathologist Signature Reviewed by: Lisandra Epstein MD 09/22/2024 10:29 AM EDT [facility] MRD Indicated Test Not Indicated 12/2024 10:29 AM EDT [facility] Bone Marrow Specimen from bone marrow obtained by aspiration / Unknown Non-blood Collection / Unknown 09/19/2024 7:29 AM EDT 09/19/2024 12:13 PM EDT us New Mckinney MD LAB FLOW CYTOMETRY ORDERABLES Final Result [facility] [address] [place] [address] * Bone marrow exam (09/19/2024 7:29 AM EDT) Case Report Bone Marrow Case: [id number] Authorizing Provider: New Mckinney MD Collected: 09/19/2024 0729 Ordering Location: [facility] Hematology/BMT and Received: 09/19/2024 1216 Cellular Therapy Program Pathologist: Lisandra Epstein MD Specimens: A) - Bone Marrow Aspirate, right B) - Bone Marrow Biopsy, right C) - Peripheral Blood for Bone Marrow 3:15 PM EDT [facility] Cytogenetics Report, Addendum Chromosome Analysis Result Giemsa-banded metaphase cells from unstimulated bone marrow cultures showed a 46,XX[20] chromosome pattern. Interpretation Normal female chromosome analysis. No clonal abnormalities were detected at current resolution. Clinical correlation is recommended. 3:15 PM EDT [facility] Addendum electronically signed by Lisandra Epstein MD on 09/24/2024 at 1630 EDT Addendum Interpretation The following two (2) genes, TP53 and DNMT3A, with persistent variants have been detected in this bone marrow specimen. The variant, p.[id number], in TP53 gene and the variant, p.[id number], in the RUNX 1 gene are not detectable at current cutoff and coverage established in this lab. Gene: TP53 Mutation: c.814G>A; p.Xys278Tmi Allele Frequency (%): 37% (45% Dec 2023) ID: [id number] Gene: DNMT3A Mutation: c.1522delC; p.[id number] 43 Allele Frequency (%): 36% (48% Dec 2023) Additional Details on Mutation Identified: 3:15 PM EDT [facility] Addendum electronically signed by Lisandra Epstein MD on 09/30/2024 at 1515 EDT Final Diagnosis PERIPHERAL BLOOD AND BONE MARROW, RIGHT POSTERIOR ILIAC CREST, (ASPIRATE SMEAR, AND CORE BIOPSY): - HYPOCELLULAR BONE MARROW WITH MARKEDLY DECREASED MEGAKARYOCYTES; NO SIGNIFICANT DYSPOIESIS OR INCREASE IN BLASTS. 3:15 PM EDT [facility] at 1453 EDT Clinical Information AML 09/14 3:15 PM EDT [facility] CBC and Differential PERIPHERAL [...] blasts are not seen. 3:15 PM EDT [facility] Bone Marrow Differential BONE MARROW DIFFERENTIAL: 200 cells Normal Patient Neutrophils 15-50 34 Metamyelocytes 4-19 3 Myelocytes 1-18 10 Promyelocytes 1-8 1 Blasts 0-2 1 Monocytes 0-5 4 Erythroid 16-38 22 Lymphocytes 3-24 13 Eosinophils 0-6 8 Basophils 0-2 0 Plasma cells 0-4 4 Other 5 3:15 PM EDT [facility] Bone Marrow Aspirate and [...] Bone trabeculae are unremarkable. 3:15 PM EDT [facility] Special and Immunohistochemical Stains Special Stain: A1-1 Vazquez-Giemsa A1-2 Vazquez-Giemsa A1-3 Vazquez-Giemsa C1-1 Vazquez-Giemsa IHC: B1-2 CD34 All controls show appropriate reactivity. All immunohistochemis try, in situ hybridization, and histochemical tests were developed by and are performed at the [facility], [address] [place] [address]. All tests reported here, except those addressing [...] negativity on decalcified specimens. 3:15 PM EDT [facility] Flow Cytometry Interpretation MIXED MARROW ELEMENTS WITH NO EVIDENCE OF INCREASED BLASTS OR ABNORMAL LYMPHOID POPULATIONS ([id number]). 3:15 PM EDT [facility] CYTOGENETICS/MOLECULA R INTERPRETATION Correlation with cytogenetic/molec ular analysis is suggested. 3:15 PM EDT [facility] Gross Description B. RIGHT A single specimen is received in formalin labeled bone marrow biopsy right posterior iliac crest and consists of 2 piece(s) of red/white tissue measuring 2.1/0.3 cm in length 0.2 cm in diameter. The specimen is submitted in to Histology for decalcification and routine processing. Cold Time: <1m 3:15 PM EDT [facility] Note: A resident was involved in the service. I attest I examined the relevant preparations for the specimens and confirmed the diagnosis or interpretation. 3:15 PM EDT [facility] Bone Marrow Peripheral blood [...] ed Result - Final Performing Organization Address City/[facility]/ZIP Co de Phone Number [facility] [address] [place] [address] * Hepatitis C Antibody w/Reflex to HCV Quant PCR (01/07/2024 8:42 AM EDT) Hepatitis C Antibody Negative Negative 01/07/2024 10:13 AM EDT [facility] Blood Venous blood specimen / Unknown Venipuncture / Unknown 01/07/2024 8:42 AM EDT 01/07/2024 9:25 AM EDT New Mckinney MD LAB BLOOD ORDERABLES Final Re sult [facility] [address] [place] [address] from Last 3 Months or Most Recently Relevant to Health [place] [phone] ANTH Care Teams Body Make Up Artist Relationship Specialty Start Date End Date Jevon Vazquez MD [address] [place] [address] #1 #1 [place] [address] PCP - General 03/23/22
--- OUTSIDE RECORDS SUMMARY | 2024-12-16 09:09 | XMS_ITS | Encounter Summary ---
Author Organization Healthcare Address [address] [place] [address] Care Team Providers Care Monorail Car Operator Name Role Phone Jevon Vazquez MD Primary Care Provider [phone] Encounter Details Date Type Department Care Team [...] Hematology/BMT and Cellular Therapy Program [address] [address] 12/30/2024 9:00 AM EDT Office Visit [facility] Hematology/BMT and Cellular Therapy Program [address] [place] [address] New Mckinney MD 800 [facility] [address] [place] [address] 12/30/2024 10:30 AM EDT Appointment [facility] 1 [address]44 [place] [address] 12/31/2024 3:00 PM EDT Appointment [facility] 1 [address] [place] [address] 01/01/2025 3:00 PM EDT Appointment [facility] 1 [address] [place] [address] 01/02/2025 2:00 PM EDT Appointment [facility] 1 [address] [place] [address] 01/03/2025 2:00 PM EDT Appointment [facility] 1 [address] [place] [address] 01/04/2025 2:00 PM EDT Appointment [facility] 1 [address] [place] [address] 01/05/2025 4:00 PM EDT Appointment [facility] 1 [address] [place] [address] documented as of this encounter Visit Diagnoses Not on filedocumented in this encounter Additional Health Concerns Assessment Noted Time A fall risk assessment has been complete d for the patient 09/30/2024 9:33 AM EDT A Body Mass Index follow-up plan has been documented for the patient 05/28/2024 1:52 PM EST documented as of this encounter Care Teams Monorail Car Operator Relationship Specialty Start Date End Date Jevon Vazquez MD [address] [place] [address] #1 [address]1 [place] [address] PCP - General 03/23/22 documented as of this encounter
--- OUTSIDE RECORDS SUMMARY | 2024-12-16 09:09 | XMS_ITS | Encounter Summary ---
Author Organization [facility] Address [address] [place] [address] Care Team Providers Care Cotton Buyer Name Role Phone Jevon Vazquez MD Primary Care Provider [phone] Reason for Visit * Reason Comments Med Refill Encounter Details Date Type Department Care Team ([facility] Contact Info) Description 11/08/2024 Refill [facility] Hematology/BMT and Cellular Therapy Program [address] [phone] New Mckinney MD 800 [facility] [address] [place] [address] Social History Tobacco Use Types Packs/Day Years [...] [facility] Contact Info) Description 12/30/2024 8:30 AM EDT Clinical Support [facility] Hematology/BMT and Cellular Therapy Program [address] [phone] 12/30/2024 9:00 AM EDT Office Visit [facility] Hematology/BMT and Cellular Therapy Program [address] [address] New Mckinney MD [address] [facility] [address] [place] [address] 12/30/2024 10:30 AM EDT Appointment [facility] 1 [address] [place] [address] 12/31/2024 3:00 PM EDT Appointment [facility] 1 [address] [place] [address] 01/01/2025 3:00 PM EDT Appointment [facility] 1 [address] [place] [address] 01/02/2025 2:00 PM EDT Appointment [facility] 1 [address] [place] [address] 01/03/2025 2:00 PM EDT Appointment [facility] 1 [address] [place] [address] 01/04/2025 2:00 PM EDT Appointment [facility] 1 [address] [place] [address] 01/05/2025 4:00 PM EDT Appointment [facility] 1 [address] [place] [address] documented as of this encounter Visit Diagnoses Not on filedocumented in this encounter Additional Health Concerns Assessment Noted Time A fall risk assessment has been complete d for the patient 09/30/2024 9:33 AM EDT A Body Mass Index follow-up plan has been documented for the patient 05/28/2024 1:52 PM EST documented as of this encounter Care Teams Cotton Buyer Relationship Specialty Start Date End Date Jevon Vazquez MD [address] [place] [address] #1 #1 [place] [address] PCP - General 03/23/22 documented as of this encounter
--- OUTSIDE RECORDS SUMMARY | 2024-12-16 09:09 | XMS_ITS | Encounter Summary ---
Author Organization Healthcare Address [address] [place] [address] Care Team Providers Care Waterproof Coating Machine Tender Name Role Phone Jevon Vazquez MD Primary Care Provider [phone] Encounter Details Date Type Department Care Team [...] Hematology/BMT and Cellular Therapy Program [address] [address] 12/30/2024 9:00 AM EDT Office Visit [facility] Hematology/BMT and Cellular Therapy Program [address] [place] [address] New Mckinney MD 800 [facility] [address] [place] [address] 12/30/2024 10:30 AM EDT Appointment [facility] 1 [address] [place] [address] 12/31/2024 3:00 PM EDT Appointment [facility] 1 [address] [place] [address] 01/01/2025 3:00 PM EDT Appointment [facility] 1 [address] [place] [address] 01/02/2025 2:00 PM EDT Appointment [facility] 1 [address] [place] [address] 01/03/2025 2:00 PM EDT Appointment [facility] 1 [address] [place] [address] 01/04/2025 2:00 PM EDT Appointment [facility] 1 [address] [place] [address] 01/05/2025 4:00 PM EDT Appointment [facility] 1 [address] [place] [address] documented as of this encounter Visit Diagnoses Not on filedocumented in this encounter Additional Health Concerns Assessment Noted Time A fall risk assessment has been complete d for the patient 09/30/2024 9:33 AM EDT A Body Mass Index follow-up plan has been documented for the patient 05/28/2024 1:52 PM EST documented as of this encounter Care Teams Waterproof Coating Machine Tender Relationship Specialty Start Date End Date Jevon Vazquez MD [address] [place] [address] #1 [address]1 [place] [address] PCP - General 03/23/22 documented as of this encounter
--- OUTSIDE RECORDS SUMMARY | 2024-12-16 09:09 | XMS_ITS | Encounter Summary ---
Author Organization Healthcare Address [address] [place] [address] Care Team Providers Care Nutrition And Dietetics Instructor Name Role Phone Jevon Vazquez MD Primary Care Provider [phone] Encounter Details Date Type Department Care Team [...] Hematology/BMT and Cellular Therapy Program [address] [address] 12/30/2024 9:00 AM EDT Office Visit [facility] Hematology/BMT and Cellular Therapy Program [address] [place] [address] New Mckinney MD 800 [facility] [address] [place] [address] 12/30/2024 10:30 AM EDT Appointment [facility] 1 [address] [place] [address] 12/31/2024 3:00 PM EDT Appointment [facility] 1 [address] [place] [address] 01/01/2025 3:00 PM EDT Appointment [facility] 1 [address] [place] [address] 01/02/2025 2:00 PM EDT Appointment [facility] 1 [address] [place] [address] 01/03/2025 2:00 PM EDT Appointment [facility] 1 [address] [place] [address] 01/04/2025 2:00 PM EDT Appointment [facility] 1 [address] [place] [address] 01/05/2025 4:00 PM EDT Appointment [facility] 1 [address] [place] [address] documented as of this encounter Visit Diagnoses Not on filedocumented in this encounter Additional Health Concerns Assessment Noted Time A fall risk assessment has been complete d for the patient 09/30/2024 9:33 AM EDT A Body Mass Index follow-up plan has been documented for the patient 05/28/2024 1:52 PM EST documented as of this encounter Care Teams Nutrition And Dietetics Instructor Relationship Specialty Start Date End Date Jevon Vazquez MD [address] [place] [address] #1 [address]1 [place] [address] PCP - General 03/23/22 documented as of this encounter
--- OUTSIDE RECORDS SUMMARY | 2024-12-16 09:09 | XMS_ITS | Encounter Summary ---
Author Organization Healthcare Address [address] [place] [address] Care Team Providers Care Internal Carver Name Role Phone Jevon Vazquez MD Primary Care Provider [phone] Encounter Details Date Type Department Care Team [...] Hematology/BMT and Cellular Therapy Program [address] [address] 12/30/2024 9:00 AM EDT Office Visit [facility] Hematology/BMT and Cellular Therapy Program [address] [place] [address] New Mckinney MD 800 [facility] [address] [place] [address] 12/30/2024 10:30 AM EDT Appointment [facility] 1 [address] [place] [address] 12/31/2024 3:00 PM EDT Appointment [facility] 1 [address] [place] [address] 01/01/2025 3:00 PM EDT Appointment [facility] 1 [address] [place] [address] 01/02/2025 2:00 PM EDT Appointment [facility] 1 [address] [place] [address] 01/03/2025 2:00 PM EDT Appointment [facility] 1 [address] [place] [address] 01/04/2025 2:00 PM EDT Appointment [facility] 1 [address] [place] [address] 01/05/2025 4:00 PM EDT Appointment [facility] 1 [address] [place] [address] documented as of this encounter Visit Diagnoses Not on filedocumented in this encounter Additional Health Concerns Assessment Noted Time A fall risk assessment has been complete d for the patient 09/30/2024 9:33 AM EDT A Body Mass Index follow-up plan has been documented for the patient 05/28/2024 1:52 PM EST documented as of this encounter Care Teams Internal Carver Relationship Specialty Start Date End Date Jevon Vazquez MD [address] [place] [address] #1 [address]1 [place] [address] PCP - General 03/23/22 documented as of this encounter
--- OUTSIDE RECORDS SUMMARY | 2024-12-16 09:09 | XMS_ITS | Clinical Summary ---
Author Organization [facility] Address [address] [place] [address] Phone Care Team Providers Care Hydraulic Assembler Name Role Phone Jevon Vazquez MD Primary Care Provider [phone] Allergies Active Allergy Reactions Criticality Noted Date [...] L4-5 LAMINECTOMY; Surgeon: Ivan Bartholomew MD; Location: [facility] MAIN OR; Service: Spine [...] eGFR 11/12/2023 11/11/2022, COVID-19 Vaccine ( season) 2024 02/18/2021, 07/10/2020, 06/12/2020 Influenza Vaccine (#1) 2024 [...] 5.6 % 11/14/2022 2:57 PM EDT PREFERRED [employer] [employer] Est. Avg Glucose 148 mg/dL 11/14/2022 2:57 PM EDT [facility], [facility] Blood VENOUS BLOOD / Unknown Venipuncture / Unknown 11/11/2022 3:46 PM EDT 11/11/2022 3:55 PM EDT Narrative [facility] - 11/14/2022 2:57 PM EDT REFERENCE RANGE: [...] ORDERABLES Final R esult [facility] August [facility] 1 [facility] , [address] [place] [id number] * (ABNORMAL) BASIC METABOLIC PANEL (11/11/2022 3:46 PM EDT) Sodium 136 136 - 145 mmol/L 11/11/2022 4:11 PM EDT [facility] Potassium 3.8 3.5 - 5.0 mmol/L 11/11/2022 4:11 PM EDT [facility] Chloride 102 98 - 107 mmol/L 11/11/2022 4:11 PM EDT [facility] Total CO2 24 22 - 29 mmol/L 11/11/2022 4:11 PM EDT [facility] Anion Gap 10 7 - 16 mmol/L 11/11/2022 4:11 PM EDT [facility] Calcium 10.1 8.8 - 10.4 mg/dL 11/11/2022 4:11 PM EDT [facility] Glucose Lvl 147(H) 82 - 100 mg/dL 11/11/2022 4:11 PM EDT [facility] BUN 15 8 - 23 mg/dL 11/11/2022 4:11 PM EDT [facility] Creatinine 0.82 0.51 - 1.30 mg/dL 11/11/2022 4:11 PM EDT [facility] eGFR (CKD-EPIcr 2020) 76 >=60 mL/min/1.7 3 m2 11/11/2022 4:11 PM EDT [facility] Comment:Estimated GFR was ca lculated using the CKD-EPIcr (2020) equation refit without race. The equation is recommended by the National Kidney Foundation - [place] Society of Nephrology Task Force. Blood VENOUS BLOOD / Unknown Venipuncture / Unknown 11/11/2022 3:46 PM EDT 11/11/2022 3:54 PM EDT us Leona Hanna DO CHEMISTRY ORDERABLES Final Res ult [facility] 1 [place] [address] * DX BONE DENSITY AXIAL SKELETON (07/25/2022 9:14 AM EDT) Anatomical Region Laterality Modality Dexa Scan 07/25/2022 Narrative 07/25/2022 3:45 PM EDT Indication: The patient is a female age 65 or older who requires a bone density assessment. Study was performed on [employer] 5. Bone Density: Region BMD T-score Z-score [...] Insurance [place]ARE [place] [address] [place] [address] MEDICARE SUPPLEMENT MEDICARE [place] PART A AND B Member Subscriber Plan / Payer (Ef fective 2016-Present) Name:Ashly Hernández Member ID:[id number] Relation to Subscriber:Self Name:Ashly Hernández Subscriber ID:[id number] Payer ID:Not on file Group ID:Not on file Type:Not on file Address: [address] MEDICARE SUPPLEMENT MEDICARE [place] PART A & B MEDICARE [place] PART A AND B Member Subscriber Plan / Payer (Ef fective 2016-Present) Name:Ashly Hernández Member ID:[id number] Relation to Subscriber:Self Name:Ashly Hernández Subscriber ID:[id number] Payer ID:Not on file Group ID:Not on file Type:Not on file Address: [address] MEDICARE SUPPLEMENT [employer] MEDICARE [place] PART A AND B [address] MEDICARE SUPPLEMENT Advance Directives For more information, please contact: [phone] * Full Code (Latest Code Status on File) Date Activated Date Inactivated Comments 11/14/2022 6:53 PM 11/16/2022 7:37 PM * Full Code Date Activated Date Inactivated Comments 11/12/2022 5:17 AM 11/14/2022 6:47 PM Care Teams Hydraulic Assembler Relationship Specialty Start Date End Date Jevon Vazquez MD [address] [place] [address] PCP - General Family Medicine 11/10/22
--- OUTSIDE RECORDS SUMMARY | 2024-12-16 09:09 | XMS_ITS | Clinical Summary ---
Author Organization [facility] Address [address] [place] [address] Care Team Providers Care Federal Java Developer Name Role Phone David Vazquez Primary Care Provider [phone] Allergies No known active allergies Medications atorvastatin [...] series) 2025 Medical Devices Implanted Type Area Test And Turn Up Technician Device Identifier Shelf Expiration Date Model / Serial / Lot Mis Ply Scr 6.5x50mm - [id number] Implanted:Qty : 1 on 01/30/2023 by Ivan Bartholomew MD at [facility] [place] Screw N/A: Spine Lumbar [employer] [id number] / / Mis Ply Scr 6.5x45mm - [id number] Implanted:Qty : 3 on 01/30/2023 by Ivan Bartholomew MD at [facility] [place] Screw N/A: Spine Lumbar [employer] [id number] / / Reline Mas Reduction Screw 7.5x45 - [id number] Implanted:Qty : 2 on 01/30/2023 by Ivan Bartholomew MD at [facility] [place] Screw N/A: Spine Lumbar [employer] [id number] / / Grft Dbm Vesuvius Putty 5cc - [id number] Implanted:Qty : 1 on 01/30/2023 by Ivan Bartholomew MD at [facility] [place] [employer] [id number] 04/20/2025 [id number] P / [id number] 1 / Putty I-Factor 5.0cc - [id number] Implanted:Qty : 1 on 01/30/2023 by Ivan Bartholomew MD at [facility] [place] N/A: Spine Lumbar [employer] 03/15/2025 [id number] / / [id number] Modulus Xlw [id number] 10 Degree - [id number] Implanted:Qty : 1 on 01/30/2023 by Ivan Bartholomew MD at [facility] [place] N/A: Spine Lumbar [employer] [id number] / / [id number] Modulus Xlw [id number] - [id number] Implanted:Qty : 1 on 01/30/2023 by Ivan Bartholomew MD at [facility] [place] N/A: Spine Lumbar [employer] 09/28/2027 [id number] / / [id number] Reln Lock Scr 5.5mm Opn Tulip - [id number] Implanted:Qty : 6 on 01/30/2023 by Ivan Bartholomew MD at [facility] N/A: Spine Lumbar [employer] [id number] / / Reln Mas Ti Petar 5.5x70mm - [id number] Implanted:Qty : 2 on 01/30/2023 by Ivan Bartholomew MD at [facility] N/A: Spine Lumbar [employer] [id number] / / Procedures Procedure Name Priority Date/Time [...] Hgb A1C 6.0(H) 4.0 - 5.6 % [facility] Comment: Reference Ranges [...] Glycohemoglobin Standardization program (NGSP) and [facility] Estimated Average Glucose 126(H) 68 - 114 mg/dL [facility] Whole Blood (Blood) 01/24/2023 2:32 PM EDT 01/24/2023 6:00 PM EDT us Ivan Bartholomew MD CHEMISTRY ORDERABLES Fin al Result [facility] [address] * (ABNORMAL) BASIC METABOLIC PANEL (BMP=EP1) (01/24/2023 2:32 PM EDT) Sodium 141 135 - 146 mmol/L [facility] Potassium 4.8 3.5 - 5.1 mmol/L [facility] Chloride 107 98 - 110 mmol/L [facility] CO2 24 22 - 29 mmol/L [facility] Anion Gap 10 5 - 13 mmol/L [facility] Comment:Anion gap calculatio n does not include potassium (K+) value. BUN 17 7 - 25 mg/dL [facility] Creatinine 1.20 0.50 - 1.20 mg/dL [facility] Glucose 125(H) 71 - 99 mg/dL [facility] Comment:Reference range (71- 99 mg/dL) refers only to fasting samples, and does not apply to non-fasting samples. eGFR CKD-EPI 2020 48 See Note [facility] Comment: eGFR calculated with 2020 CKD-EPI equation using creatinine, patient's age and gender. Other factors, especially muscle mass, may affect accuracy and need to be considered. Patient values should be interpreted as a trend. The reference interval is >60 mL/min/1.73m2. Calcium 10.3 8.5 - 10.5 mg/dL [facility] BUN/Creatinine Ratio 14 [facility] Serum 01/24/2023 2:32 PM EDT 01/24/2023 5:54 PM EDT us Lexi SUAREZ CHEMISTRY ORDERABLES Final Resu lt [facility] [address] from Last 3 Months or Most Recently Relevant to Health Maintenance Insurance MEDICARE PART A [facility] [address] [address] [place] [address] ANTH Advance Directives For more information, please contact: [phone] * Full Code (Latest Code Status on File) Date Activated Date Inactivated Comments 01/30/2023 9:13 AM No automated chest compression devices for V[facility] Patients Care Teams Federal Java Developer Relationship Specialty Start Date End Date David Vazquez [address] [place] [phone] PCP - General 01/24/23
--- OUTSIDE RECORDS SUMMARY | 2024-12-16 09:09 | XMS_ITS | Encounter Summary ---
Author Organization [facility] Address [address] [place] [address] Care Team Providers Care Compliance Consultant Name Role Phone Jevon Vazquez MD Primary Care Provider [phone] Encounter Details Date Type Department Care Team ([facility] Contact Info) Description 11/12/2024 Telephone [facility] Hematology/BMT and Cellular Therapy Program [address] [address] Zonia Hoffman, FORM GRADER 800 [facility] [address] [place] [phone] Social History Tobacco Use Types Packs/Day Years [...] Hematology/BMT and Cellular Therapy Program [address] [place] [address] 12/30/2024 9:00 AM EDT Office Visit [facility] Hematology/BMT and Cellular Therapy Program [address] [place] [address] New Mckinney MD 800 [facility] [address] [place] [address] 12/30/2024 10:30 AM EDT Appointment [facility] 1 [address] [place] [address] 12/31/2024 3:00 PM EDT Appointment [facility] 1 [address] [place] [address] 01/01/2025 3:00 PM EDT Appointment [facility] 1 [address] [place] [address] 01/02/2025 2:00 PM EDT Appointment [facility] 1 [address] [place] [address] 01/03/2025 2:00 PM EDT Appointment [facility] 1 [address] [place] [address] 01/04/2025 2:00 PM EDT Appointment [facility] 1 [address] [place] [address] 01/05/2025 4:00 PM EDT Appointment [facility] 1 [address] [place] [address] documented as of this encounter Visit Diagnoses Not on filedocumented in this encounter Additional Health Concerns Assessment Noted Time A fall risk assessment has been complete d for the patient 09/30/2024 9:33 AM EDT A Body Mass Index follow-up plan has been documented for the patient 05/28/2024 1:52 PM EST documented as of this encounter Care Teams Compliance Consultant Relationship Specialty Start Date End Date Jevon Vazquez MD [address] [place] [address] #1 #1 [place] [address] PCP - General 03/23/22 documented as of this encounter
--- OUTSIDE RECORDS SUMMARY | 2024-12-16 09:09 | XMS_ITS | Encounter Summary ---
Author Organization Healthcare Address [address] [place] [address] Care Team Providers Care Cheese Cutter Name Role Phone Jevon Vazquez MD Primary Care Provider [phone] Encounter Details Date Type Department Care Team ([facility] st Contact Info) Description 10/28/2024 Telephone [facility] Hematology/BMT and Cellular Therapy Program [address] [address] Zonia Hoffman, CASE WORK AIDE 800 [facility] [address] [place] [address] Social History Tobacco Use Types Packs/Day Years [...] go over her labs results Callback number: [phone] documented in this encounter Plan of Treatment Upcoming Encounters Date Type Department Care Team (Late st Contact Info) Description 12/30/2024 8:30 AM EDT Clinical Support [facility] Hematology/BMT and Cellular Therapy Program 750 [facility], [address] [place] [phone] 12/30/2024 9:00 AM EDT Office Visit [facility] Hematology/BMT and Cellular Therapy Program 750 [facility], [address] [place] [address] New Mckinney MD 800 [facility] [address] [place] [address] 12/30/2024 10:30 AM EDT Appointment [facility] 1 [address] [place] [address] 12/31/2024 3:00 PM EDT Appointment [facility] 1 [address] [place] [address] 01/01/2025 3:00 PM EDT Appointment [facility] 1 [address] [place] [address] 01/02/2025 2:00 PM EDT Appointment [facility] Infusion Clinic 1 [address] [place] [address] 01/03/2025 2:00 PM EDT Appointment [facility] 1 [address] [place] [address] 01/04/2025 2:00 PM EDT Appointment [facility] 1 [address] [place] [address] 01/05/2025 4:00 PM EDT Appointment [facility] 1 [address] [place] [address] documented as of this encounter Visit Diagnoses Not on filedocumented in this encounter Additional Health Concerns Assessment Noted Time A fall risk assessment has been complete d for the patient 09/30/2024 9:33 AM EDT A Body Mass Index follow-up plan has been documented for the patient 05/28/2024 1:52 PM EST documented as of this encounter Care Teams Cheese Cutter Relationship Specialty Start Date End Date Jevon Vazquez MD [address] [place] [address] #1 #1 [place] [address] PCP - General 03/23/22 documented as of this encounter
--- OUTSIDE RECORDS SUMMARY | 2024-12-16 09:09 | XMS_ITS | Encounter Summary ---
Author Organization Healthcare Address [address] [place] [address] Care Team Providers Care Equity Director Name Role Phone Jevon Vazquez MD Primary Care Provider [phone] Encounter Details Date Type Department Care Team [...] Hematology/BMT and Cellular Therapy Program [address] [address] 12/30/2024 9:00 AM EDT Office Visit [facility] Hematology/BMT and Cellular Therapy Program [address] [place] [address] New Mckinney MD 800 [facility] [address] [place] [address] 12/30/2024 10:30 AM EDT Appointment [facility] 1 [address] [place] [address] 12/31/2024 3:00 PM EDT Appointment [facility] 1 [address] [place] [address] 01/01/2025 3:00 PM EDT Appointment [facility] 1 [address] [place] [address] 01/02/2025 2:00 PM EDT Appointment [facility] 1 [address] [place] [address] 01/03/2025 2:00 PM EDT Appointment [facility] 1 [address] [place] [address] 01/04/2025 2:00 PM EDT Appointment [facility] 1 [address] [place] [address] 01/05/2025 4:00 PM EDT Appointment [facility] 1 [address] [place] [address] documented as of this encounter Visit Diagnoses Not on filedocumented in this encounter Additional Health Concerns Assessment Noted Time A fall risk assessment has been complete d for the patient 09/30/2024 9:33 AM EDT A Body Mass Index follow-up plan has been documented for the patient 05/28/2024 1:52 PM EST documented as of this encounter Care Teams Equity Director Relationship Specialty Start Date End Date Jevon Vazquez MD [address] [place] [address] [address]1 [address]1 [place] [address] PCP - General 03/23/22 documented as of this encounter
--- OUTSIDE RECORDS SUMMARY | 2024-12-16 09:09 | XMS_ITS | Encounter Summary ---
Author Organization Healthcare Address [address] [place] [address] Care Team Providers Care Client Program Manager Name Role Phone Jevon Vazquez MD Primary Care Provider [phone] Encounter Details Date Type Department Care Team [...] Hematology/BMT and Cellular Therapy Program [address] [address] 12/30/2024 9:00 AM EDT Office Visit [facility] Hematology/BMT and Cellular Therapy Program [address] [place] [address] New Mckinney MD 800 [facility] [address] [place] [address] 12/30/2024 10:30 AM EDT Appointment [facility] 1 [address] [place] [address] 12/31/2024 3:00 PM EDT Appointment [facility] 1 [address] [place] [address] 01/01/2025 3:00 PM EDT Appointment [facility] 1 [address] [place] [address] 01/02/2025 2:00 PM EDT Appointment [facility] 1 [address] [place] [address] 01/03/2025 2:00 PM EDT Appointment [facility] 1 [address] [place] [address] 01/04/2025 2:00 PM EDT Appointment [facility] 1 [address] [place] [address] 01/05/2025 4:00 PM EDT Appointment [facility] 1 [address] [place] [address] documented as of this encounter Visit Diagnoses [...] Date End Date Jevon Vazquez MD [address] [place] [address] #1 [address]1 [place] [address] PCP - General 03/23/22 documented as of this encounter
--- OUTSIDE RECORDS SUMMARY | 2024-12-16 09:09 | XMS_ITS | Encounter Summary ---
Author Organization Healthcare Address [address] [place] [address] Care Team Providers Care Continuity Writer Name Role Phone Jevon Vazquez MD [...] Hematology/BMT and Cellular Therapy Program [address] [address] 12/30/2024 9:00 AM EDT Office Visit [facility] Hematology/BMT and Cellular Therapy Program [address] [place] [address] New Mckinney MD 800 [facility] [address] [place] [address] 12/30/2024 10:30 AM EDT Appointment [facility] 1 [address] [place] [address] 12/31/2024 3:00 PM EDT Appointment [facility] 1 [address] [place] [address] 01/01/2025 3:00 PM EDT Appointment [facility] 1 [address] [place] [address] 01/02/2025 2:00 PM EDT Appointment [facility] 1 [address] [place] [address] 01/03/2025 2:00 PM EDT Appointment [facility] 1 [address] [place] [address] 01/04/2025 2:00 PM EDT Appointment [facility] 1 [address] [place] [address] 01/05/2025 4:00 PM EDT Appointment [facility] 1 [address] [place] [address] documented as of this encounter Visit Diagnoses Not on filedocumented in this encounter Additional Health Concerns Assessment Noted Time A fall risk assessment has been complete d for the patient 09/30/2024 9:33 AM EDT A Body Mass Index follow-up plan has been documented for the patient 05/28/2024 1:52 PM EST documented as of this encounter Care Teams Continuity Writer Relationship Specialty Start Date End Date Jevon Vazquez MD [address] [place] [address] [address]1 [address]1 [place] [address] PCP - General 03/23/22 documented as of this encounter
--- OUTSIDE RECORDS SUMMARY | 2024-12-16 09:09 | XMS_ITS | Encounter Summary ---
Author Organization Healthcare Address [address] [place] [address] Care Team Providers Care Bpo Specialist Name Role Phone Jevon Vazquez MD [...] Hematology/BMT and Cellular Therapy Program [address] [address] 12/30/2024 9:00 AM EDT Office Visit [facility] Hematology/BMT and Cellular Therapy Program [address] [place] [address] New Mckinney MD 800 [facility] [address] [place] [address] 12/30/2024 10:30 AM EDT Appointment [facility] 1 [address] [place] [address] 12/31/2024 3:00 PM EDT Appointment [facility] 1 [address] [place] [address] 01/01/2025 3:00 PM EDT Appointment [facility] 1 [address] [place] [address] 01/02/2025 2:00 PM EDT Appointment [facility] 1 [address] [place] [address] 01/03/2025 2:00 PM EDT Appointment [facility] 1 [address] [place] [address] 01/04/2025 2:00 PM EDT Appointment [facility] 1 [address] [place] [address] 01/05/2025 4:00 PM EDT Appointment [facility] 1 [address] [place] [address] documented as of this encounter Visit Diagnoses Not on filedocumented in this encounter Additional Health Concerns Assessment Noted Time A fall risk assessment has been complete d for the patient 09/30/2024 9:33 AM EDT A Body Mass Index follow-up plan has been documented for the patient 05/28/2024 1:52 PM EST documented as of this encounter Care Teams Bpo Specialist Relationship Specialty Start Date End Date Jevon Vazquez MD [address] [place] [address] [address]1 [address]1 [place] [address] PCP - General 03/23/22 documented as of this encounter
--- OUTSIDE RECORDS SUMMARY | 2024-12-16 09:09 | XMS_ITS | Encounter Summary ---
Author Organization Healthcare Address [address] [place] [address] Care Team Providers Care Elastic Attacher Overlock Name Role Phone Jevon Vazquez MD Primary Care Provider [phone] Encounter Details Date Type Department Care Team [...] Hematology/BMT and Cellular Therapy Program [address] [address] 12/30/2024 9:00 AM EDT Office Visit [facility] Hematology/BMT and Cellular Therapy Program [address] [place] [address] New Mckinney MD 800 [facility] [address] [place] [address] 12/30/2024 10:30 AM EDT Appointment [facility] 1 [address] [place] [address] 12/31/2024 3:00 PM EDT Appointment [facility] 1 [address] [place] [address] 01/01/2025 3:00 PM EDT Appointment [facility] 1 [address] [place] [address] 01/02/2025 2:00 PM EDT Appointment [facility] 1 [address] [place] [address] 01/03/2025 2:00 PM EDT Appointment [facility] 1 [address] [place] [address] 01/04/2025 2:00 PM EDT Appointment [facility] 1 [address] [place] [address] 01/05/2025 4:00 PM EDT Appointment [facility] 1 [address] [place] [address] documented as of this encounter Visit Diagnoses Not on filedocumented in this encounter Additional Health Concerns Assessment Noted Time A fall risk assessment has been complete d for the patient 09/30/2024 9:33 AM EDT A Body Mass Index follow-up plan has been documented for the patient 05/28/2024 1:52 PM EST documented as of this encounter Care Teams Elastic Attacher Overlock Relationship Specialty Start Date End Date Jevon Vazqeuz MD [address] [place] [address] [address]1 [address]1 [place] [address] PCP - General 03/23/22 documented as of this encounter
--- OUTSIDE RECORDS SUMMARY | 2024-12-16 09:09 | XMS_ITS | Encounter Summary ---
Author Organization Healthcare Address [address] [place] [address] Care Team Providers Care Recruiting Intern Name Role Phone Jevon Vazquez MD Primary Care Provider [phone] Encounter Details Date Type Department Care Team [...] Hematology/BMT and Cellular Therapy Program [address] [address] 12/30/2024 9:00 AM EDT Office Visit [facility] Hematology/BMT and Cellular Therapy Program [address] [place] [address] New Mckinney MD 800 [facility] [address] [place] [address] 12/30/2024 10:30 AM EDT Appointment [facility] 1 [address] [place] [address] 12/31/2024 3:00 PM EDT Appointment [facility] 1 [address] [place] [address] 01/01/2025 3:00 PM EDT Appointment [facility] 1 [address] [place] [address] 01/02/2025 2:00 PM EDT Appointment [facility] 1 [address] [place] [address] 01/03/2025 2:00 PM EDT Appointment [facility] 1 [address] [place] [address] 01/04/2025 2:00 PM EDT Appointment [facility] 1 [address] [place] [address] 01/05/2025 4:00 PM EDT Appointment [facility] 1 [address] [place] [address] documented as of this encounter Visit Diagnoses Not on filedocumented in this encounter Additional Health Concerns Assessment Noted Time A fall risk assessment has been complete d for the patient 09/30/2024 9:33 AM EDT A Body Mass Index follow-up plan has been documented for the patient 05/28/2024 1:52 PM EST documented as of this encounter Care Teams Recruiting Intern Relationship Specialty Start Date End Date Jevon Vazquez MD [address] [place] [address] #1 [address]1 [place] [address] PCP - General 03/23/22 documented as of this encounter
--- OUTSIDE RECORDS SUMMARY | 2024-12-16 09:09 | XMS_ITS | Encounter Summary ---
Author Organization Healthcare Address [address] [place] [address] Care Team Providers Care Manager Medicare Name Role Phone Jevon Vazquez MD Primary Care Provider [phone] Encounter Details Date Type Department Care Team [...] Hematology/BMT and Cellular Therapy Program [address] [address] 12/30/2024 9:00 AM EDT Office Visit [facility] Hematology/BMT and Cellular Therapy Program [address] [place] [address] New Mckinney MD 800 [facility] [address] [place] [address] 12/30/2024 10:30 AM EDT Appointment [facility] 1 [address] [place] [address] 12/31/2024 3:00 PM EDT Appointment [facility] 1 [address] [place] [address] 01/01/2025 3:00 PM EDT Appointment [facility] 1 [address] [place] [address] 01/02/2025 2:00 PM EDT Appointment [facility] 1 [address] [place] [address] 01/03/2025 2:00 PM EDT Appointment [facility] 1 [address] [place] [address] 01/04/2025 2:00 PM EDT Appointment [facility] 1 [address] [place] [address] 01/05/2025 4:00 PM EDT Appointment [facility] 1 [address] [place] [address] documented as of this encounter Visit Diagnoses Not on filedocumented in this encounter Additional Health Concerns Assessment Noted Time A fall risk assessment has been complete d for the patient 09/30/2024 9:33 AM EDT A Body Mass Index follow-up plan has been documented for the patient 05/28/2024 1:52 PM EST documented as of this encounter Care Teams Manager Medicare Relationship Specialty Start Date End Date Jevon Vazquez MD [address] [place] [address] [address]1 [address]1 [place] [address] PCP - General 03/23/22 documented as of this encounter
--- OUTSIDE RECORDS SUMMARY | 2024-12-16 09:09 | XMS_ITS | Encounter Summary ---
Author Organization [facility] Address [address] [place] [address] Care Team Providers Care Coordinator Of Online Programs Name Role Phone Jevon Vazquez MD Primary Care Provider [phone] Encounter Details Date Type Department Care Team ([facility] Contact Info) Description 11/13/2024 Orders Only [facility] Hematology/BMT and Cellular Therapy Program [address] [phone] 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 RN [facility] Acute myeloid [...] Hematology/BMT and Cellular Therapy Program [address] [address] 12/30/2024 9:00 AM EDT Office Visit [facility] Hematology/BMT and Cellular Therapy Program [address] [address] New Mckinney MD 800 [facility] [address] [place] [address] 12/30/2024 10:30 AM EDT Appointment [facility] 1 [address] [place] [address] 12/31/2024 3:00 PM EDT Appointment [facility] 1 [address] [place] [address] 01/01/2025 3:00 PM EDT Appointment [facility] 1 [address] [place] [address] 01/02/2025 2:00 PM EDT Appointment [facility] 1 [address] [place] [address] 01/03/2025 2:00 PM EDT Appointment [facility] 1 [address] [place] [address] 01/04/2025 2:00 PM EDT Appointment [facility] 1 [address] [place] [address] 01/05/2025 4:00 PM EDT Appointment [facility] Infusion Clinic 1 [address] [place] [address] Scheduled Orders Name Type Priority Associated Diagnoses [...] of this encounter Care Teams Coordinator Of Online Programs Relationship Specialty Start Date End Date Jevon Vazquez MD [address] [place] [address] #1 #1 [place] [address] PCP - General 03/23/22 documented as of this encounter
--- OUTSIDE RECORDS SUMMARY | 2024-12-16 09:09 | XMS_ITS | Encounter Summary ---
Author Organization Healthcare Address [address] [place] [address] Care Team Providers Care Hand Binder Stripper Name Role Phone Jevon Vazquez MD Primary Care Provider [phone] Encounter Details Date Type Department Care Team [...] Cellular Therapy Program [address] [address] 12/30/2024 9:00 AM EDT Office Visit [facility] Hematology/BMT and Cellular Therapy Program [address] [place] [address] New Mckinney MD 800 [facility] [address] [place] [address] 12/30/2024 10:30 AM EDT Appointment [facility] 1 [address] [place] [address] 12/31/2024 3:00 PM EDT Appointment [facility] 1 [address] [place] [address] 01/01/2025 3:00 PM EDT Appointment [facility] 1 [address] [place] [address] 01/02/2025 2:00 PM EDT Appointment [facility] 1 [address] [place] [address] 01/03/2025 2:00 PM EDT Appointment [facility] 1 [address] [place] [address] 01/04/2025 2:00 PM EDT Appointment [facility] 1 [address] [place] [address] 01/05/2025 4:00 PM EDT Appointment [facility] 1 [address] [place] [address] documented as of this encounter Visit Diagnoses Not on filedocumented in this encounter Additional Health Concerns Assessment Noted Time A fall risk assessment has been complete d for the patient 09/30/2024 9:33 AM EDT A Body Mass Index follow-up plan has been documented for the patient 05/28/2024 1:52 PM EST documented as of this encounter Care Teams Hand Binder Stripper Relationship Specialty Start Date End Date Jevon Vazquez MD [address] [place] [address] #1 [address]1 [place] [address] PCP - General 03/23/22 documented as of this encounter
--- OUTSIDE RECORDS SUMMARY | 2024-12-16 09:09 | XMS_ITS | Encounter Summary ---
Author Organization Healthcare Address [address] [place] [address] Care Team Providers Care Revenue Officer Name Role Phone Jevon Vazquez MD Primary Care Provider [phone] Encounter Details Date Type Department Care Team ([facility] st Contact Info) Description 10/27/2024 Telephone [facility] Hematology/BMT and Cellular Therapy Program [address] [address] Zonia Hoffman, PIE ICER MACHINE 800 [facility] [address] [place] [phone] Social History Tobacco Use Types Packs/Day Years [...] and her new appts will be on [employer]. She verbalizes understanding. * Telephone Encounter - [...] Hematology/BMT and Cellular Therapy Program [address] [address] 12/30/2024 9:00 AM EDT Office Visit [facility] Hematology/BMT and Cellular Therapy Program [address] [address] New Mckinney MD 800 [facility] [address] [place] [address] 12/30/2024 10:30 AM EDT Appointment [facility] 1 [address] [place] [address] 12/31/2024 3:00 PM EDT Appointment [facility] 1 [address] [place] [address] 01/01/2025 3:00 PM EDT Appointment [facility] 1 [address] [place] [address] 01/02/2025 2:00 PM EDT Appointment [facility] 1 [address] [place] [address] 01/03/2025 2:00 PM EDT Appointment [facility] 1 [address] [place] [address] 01/04/2025 2:00 PM EDT Appointment [facility] 1 [address] [place] [address] 01/05/2025 4:00 PM EDT Appointment [facility] 1 [address] [place] [address] documented as of this encounter Visit Diagnoses Not on filedocumented in this encounter Additional Health Concerns Assessment Noted Time A fall risk assessment has been complete d for the patient 09/30/2024 9:33 AM EDT A Body Mass Index follow-up plan has been documented for the patient 05/28/2024 1:52 PM EST documented as of this encounter Care Teams Revenue Officer Relationship Specialty Start Date End Date Jevon Vazquez MD [address] [place] [address] #1 #1 [place] [address] PCP - General 03/23/22 documented as of this encounter
--- OUTSIDE RECORDS SUMMARY | 2024-12-16 09:09 | XMS_ITS | Encounter Summary ---
Author Organization Healthcare Address [address] [place] [address] Care Team Providers Care City Collector Name Role Phone Jevon Vazquez MD Primary Care Provider [phone] Encounter Details Date Type Department Care Team [...] Hematology/BMT and Cellular Therapy Program [address] [place] [address] [address] 12/30/2024 9:00 AM EDT Office Visit [facility] Hematology/BMT and Cellular Therapy Program [address] [place] [address] New Mckinney MD 800 [facility] [address] [place] [address] 12/30/2024 10:30 AM EDT Appointment [facility] 1 [address] [place] [address] 12/31/2024 3:00 PM EDT Appointment [facility] 1 [address] [place] [address] 01/01/2025 3:00 PM EDT Appointment [facility] 1 [address] [place] [address] 01/02/2025 2:00 PM EDT Appointment [facility] 1 [address] [place] [address] 01/03/2025 2:00 PM EDT Appointment [facility] 1 [address] [place] [address] 01/04/2025 2:00 PM EDT Appointment [facility] 1 [address] [place] [address] 01/05/2025 4:00 PM EDT Appointment [facility] 1 [address] [place] [address] documented as of this encounter Visit Diagnoses Not on filedocumented in this encounter Additional Health Concerns Assessment Noted Time A fall risk assessment has been complete d for the patient 09/30/2024 9:33 AM EDT A Body Mass Index follow-up plan has been documented for the patient 05/28/2024 1:52 PM EST documented as of this encounter Care Teams City Collector Relationship Specialty Start Date End Date Jevon Vazquez MD [address] [place] [address] #1 [address]1 [place] [address] PCP - General 03/23/22 documented as of this encounter
--- OUTSIDE RECORDS SUMMARY | 2024-12-16 09:09 | XMS_ITS | Encounter Summary ---
Author Organization Healthcare Address [address] [place] [address] Care Team Providers Care Health Education Director Name Role Phone Jevon Vazquez MD Primary Care Provider [phone] Encounter Details Date Type Department Care Team [...] Hematology/BMT and Cellular Therapy Program [address] [address] 12/30/2024 9:00 AM EDT Office Visit [facility] Hematology/BMT and Cellular Therapy Program [address] [place] [address] New Mckinney MD 800 [facility] [address] [place] [address] 12/30/2024 10:30 AM EDT Appointment [facility] 1 [address] [place] [address] 12/31/2024 3:00 PM EDT Appointment [facility] 1 [address] [place] [address] 01/01/2025 3:00 PM EDT Appointment [facility] 1 [address] [place] [address] 01/02/2025 2:00 PM EDT Appointment [facility] 1 [address] [place] [address] 01/03/2025 2:00 PM EDT Appointment [facility] 1 [address] [place] [address] 01/04/2025 2:00 PM EDT Appointment [facility] 1 [address] [place] [address] 01/05/2025 4:00 PM EDT Appointment [facility] 1 [address] [place] [address] documented as of this encounter Visit Diagnoses Not on filedocumented in this encounter Additional Health Concerns Assessment Noted Time A fall risk assessment has been complete d for the patient 09/30/2024 9:33 AM EDT A Body Mass Index follow-up plan has been documented for the patient 05/28/2024 1:52 PM EST documented as of this encounter Care Teams Health Education Director Relationship Specialty Start Date End Date Jevon Vazquez MD [address] [place] [address] #1 [address]1 [place] [address] PCP - General 03/23/22 documented as of this encounter
--- OUTSIDE RECORDS SUMMARY | 2024-12-16 09:09 | XMS_ITS | Encounter Summary ---
Author Organization Healthcare Address [address] [place] [address] Care Team Providers Care Film Producer Name Role Phone Jevon Vazquez MD Primary Care Provider [phone] Encounter Details Date Type Department Care Team [...] Hematology/BMT and Cellular Therapy Program [address] [address] 12/30/2024 9:00 AM EDT Office Visit [facility] Hematology/BMT and Cellular Therapy Program [address] [place] [address] New Mckinney MD 800 [facility] [address] [place] [address] 12/30/2024 10:30 AM EDT Appointment [facility] 1 [address] [place] [address] 12/31/2024 3:00 PM EDT Appointment [facility] 1 [address] [place] [address] 01/01/2025 3:00 PM EDT Appointment [facility] 1 [address] [place] [address] 01/02/2025 2:00 PM EDT Appointment [facility] 1 [address] [place] [address] 01/03/2025 2:00 PM EDT Appointment [facility] 1 [address] [place] [address] 01/04/2025 2:00 PM EDT Appointment [facility] 1 [address] [place] [address] 01/05/2025 4:00 PM EDT Appointment [facility] 1 [address] [place] [address] documented as of this encounter Visit Diagnoses Not on filedocumented in this encounter Additional Health Concerns Assessment Noted Time A fall risk assessment has been complete d for the patient 09/30/2024 9:33 AM EDT A Body Mass Index follow-up plan has been documented for the patient 05/28/2024 1:52 PM EST documented as of this encounter Care Teams Film Producer Relationship Specialty Start Date End Date Jevon Vazquez MD [address] [place] [address] #1 #1 [place] [address] PCP - General 03/23/22 documented as of this encounter
[2024-12-16 09:18] LABS: Hematocrit 22.9 % (37.0-47.0); Hemoglobin 8.0 g/dL (12.2-16.2); Immature Granulocytes % 0 %; Mean Corpuscular HGB Conc 34.9 g/dL (31.8-35.4); Mean Corpuscular Hemoglobin 34.2 pg (27.0-31.2); Mean Corpuscular Volume 97.9 fl (81-99); Nucleated Red Blood Cells % 1.4 %; Red Blood Count 2.34 M/mm3 (4.20-5.40); Red Cell Distribution Width-SD 76.3 fL; White Blood Count 2.1 K/mm3 (4.8-10.8)
[2024-12-16 09:20] LABS: Platelet Count 14 K/mm3 (142-424)
[2024-12-16 09:35] LABS: Chloride 108 mmol/L (98-107)
[2024-12-16 09:36] LABS: Albumin Level 3.6 g/dl (3.5-5.0); Potassium 3.8 mmoL/L (3.5-5.1); Sodium 137 mmol/L (136-145)
--- NOTE | 2024-12-16 09:37 | PC.NURSE ---
0929 Lab staff at pt side to witness type and crossmatch for blood. Pt to receive 1 unit prbc's today. Blood to be ordered through [facility]-pt ok to d/c home. Will call pt once blood arrives and pt can return for transfusion.
[2024-12-16 09:38] LABS: Alanine Aminotransferase 11 U/L (12-78); Aspartate Amino Transferase 36 U/L (14-36); Blood Urea Nitrogen 26 mg/dl (7-17); Creatinine Clearance Estimated 38 mL/min (50-200); Creatinine,Serum 1.20 mg/dl (0.52-1.04); Estimated Glomerular Filt Rate 44 ml/min (>60); GFR (African American) 53 ML/MIN (>60)
[2024-12-16 09:39] LABS: Albumin/Globulin Ratio 1.6 (1.1-1.8); Alkaline Phosphatase 45 U/L (38-126); Anion Gap 9.8 mEq/L (5-15); Bilirubin,Total 0.5 mg/dl (0.2-1.3); Calcium 9.7 mg/dl (8.4-10.2); Carbon Dioxide 23 mmol/L (22.0-30.0); Globulin 2.3 g/dL (1.3-3.2); Glucose 129 mg/dl (74-100); Total Protein,Serum 5.9 g/dl (6.3-8.2)
[2024-12-16 10:31] LABS: Total Cells Counted 25
[2024-12-16 10:32] LABS: RBC Morphology Normal
[2024-12-16] MEDS: ACETAMINOPHEN 325MG TAB 650 MG PO (12:00)
[2024-12-16] MEDS: 0.9 % SODIUM CHLORIDE 250 ML 25 ML IV (12:24)
[2024-12-16] MEDS: SODIUM CHLORIDE 0.9% 10ML FLUSH SYRINGE 10 ML IV (13:19)
== END 2024-12-16 15:39 | disposition home or self-care (01) ==
LOC: INF 08:57
PROVIDERS: PCP Family Medicine; Visit Provider Internal Medicine Medical Oncology
DX: C92.00 Acute myeloblastic leukemia, not having achieved remission (principal)
CPT/HCPCS: 36430; 80053; 85007; 85025; 86850; J1642; J7050; P9016

== ENCOUNTER 2024-12-19 08:58 | Outpatient (CLI) | payer MEDICARE, BC, SELFPAY ==
[2024-12-19] VITALS (7 sets, daily range): BP systolic 114–132; BP diastolic 49–64; PULSE 71–81; RESP 18–20; TEMP 36.6–36.8; O2SAT 99–100
--- OUTSIDE RECORDS SUMMARY | 2024-12-19 09:03 | XMS_ITS | Encounter Summary ---
Author Organization Healthcare Address [address] [place] [address] Care Team Providers Care Supervisor Shipping Room Name Role Phone Jevon Vazquez MD Primary Care Provider [phone] Encounter Details Date Type Department Care Team [...] Hematology/BMT and Cellular Therapy Program [address] [address] 12/30/2024 9:00 AM EDT Office Visit [facility] Hematology/BMT and Cellular Therapy Program [address] [address] Bibiana Sepulveda, PATIENT SERVICES REPRESENTATIVE 800 [facility] [address] [place] [address] 12/30/2024 10:30 AM EDT Appointment [facility] 1 [address] [place] [address] 12/31/2024 3:00 PM EDT Appointment [facility] 1 [address] [place] [address] 01/01/2025 3:00 PM EDT Appointment [facility] 1 [address] [place] [address] 01/02/2025 2:00 PM EDT Appointment [facility] 1 [address] [place] [address] 01/03/2025 2:00 PM EDT Appointment [facility] 1 [address] [place] [address] 01/04/2025 2:00 PM EDT Appointment [facility] 1 [address] [place] [address] 01/05/2025 4:00 PM EDT Appointment [facility] 1 [address] [place] [address] documented as of this encounter Visit Diagnoses Not on filedocumented in this encounter Additional Health Concerns Assessment Noted Time A fall risk assessment has been complete d for the patient 09/30/2024 9:33 AM EDT A Body Mass Index follow-up plan has been documented for the patient 05/28/2024 1:52 PM EST documented as of this encounter Care Teams Supervisor Shipping Room Relationship Specialty Start Date End Date Jevon Vazquez MD [address] [place] [address] #1 [address]1 [place] [address] PCP - General 03/23/22 documented as of this encounter
--- OUTSIDE RECORDS SUMMARY | 2024-12-19 09:03 | XMS_ITS | Encounter Summary ---
Author Organization Healthcare Address [address] [place] [address] Care Team Providers Care Community Chest Officer Name Role Phone Jevon Vazquez MD Primary Care Provider [phone] Encounter Details Date Type Department Care Team [...] Hematology/BMT and Cellular Therapy Program [address] [address] 12/30/2024 9:00 AM EDT Office Visit [facility] Hematology/BMT and Cellular Therapy Program [address] [address] Bibiana Sepulveda, SENIOR PARTNER 800 [facility] [address] [place] [address] 12/30/2024 10:30 AM EDT Appointment [facility] 1 [address] [place] [address] 12/31/2024 3:00 PM EDT Appointment [facility] 1 [address] [place] [address] 01/01/2025 3:00 PM EDT Appointment [facility] 1 [address] [place] [address] 01/02/2025 2:00 PM EDT Appointment [facility] 1 [address] [place] [address] 01/03/2025 2:00 PM EDT Appointment [facility] 1 [address] [place] [address] 01/04/2025 2:00 PM EDT Appointment [facility] 1 [address] [place] [address] 01/05/2025 4:00 PM EDT Appointment [facility] 1 [address] [place] [address] documented as of this encounter Visit Diagnoses Not on filedocumented in this encounter Additional Health Concerns Assessment Noted Time A fall risk assessment has been complete d for the patient 09/30/2024 9:33 AM EDT A Body Mass Index follow-up plan has been documented for the patient 05/28/2024 1:52 PM EST documented as of this encounter Care Teams Community Chest Officer Relationship Specialty Start Date End Date Jevon Vazquez MD [address] [place] [address] #1 [address]1 [place] [address] PCP - General 03/23/22 documented as of this encounter
--- OUTSIDE RECORDS SUMMARY | 2024-12-19 09:03 | XMS_ITS | Encounter Summary ---
Author Organization Healthcare Address [address] [place] [address] Care Team Providers Care Wrapper Stemmer Hand Name Role Phone Jevon Vazquez MD Primary Care Provider [phone] Encounter Details Date Type Department Care Team ([facility] Contact Info) Description 12/11/2024 Telephone [facility] CC Hematology/BMT and Cellular Therapy Program [address] [address] New Mckinney MD 800 [facility] [address] [place] [address] Social History Tobacco Use Types Packs/Day Years [...] PM EDT Rn uploaded recent labs to viola and rescheduled appointments to 12/30. RN returned call to patient with updated plan of care and schedule. documented in this encounter Plan of Treatment Upcoming Encounters Date Type Department Care Team (Late Contact Info) Description 12/30/2024 8:30 AM EDT Clinical Support [facility] Hematology/BMT and Cellular Therapy Program [address] [place] [address] 12/30/2024 9:00 AM EDT Office Visit [facility] Hematology/BMT and Cellular Therapy Program [address] [place] [address] Bibiana Sepulveda, HEALTH INFORMATION ADMINISTRATOR 800 [facility] [address] [place] [address] 12/30/2024 10:30 AM EDT Appointment [facility] 1 [address] [place] [address] 12/31/2024 3:00 PM EDT Appointment [facility] 1 [address] [place] [address] 01/01/2025 3:00 PM EDT Appointment [facility] 1 [address] [place] [address] 01/02/2025 2:00 PM EDT Appointment [facility] 1 [address] [place] [address] 01/03/2025 2:00 PM EDT Appointment [facility] 1 [address] [place] [address] 01/04/2025 2:00 PM EDT Appointment [facility] 1 [address] [place] [address] 01/05/2025 4:00 PM EDT Appointment [facility] 1 [address] [place] [address] documented as of this encounter Visit Diagnoses Not on filedocumented in this encounter Additional Health Concerns Assessment Noted Time A fall risk assessment has been complete d for the patient 09/30/2024 9:33 AM EDT A Body Mass Index follow-up plan has been documented for the patient 05/28/2024 1:52 PM EST documented as of this encounter Care Teams Wrapper Stemmer Hand Relationship Specialty Start Date End Date Jevon Vazquez MD [address] [place] [address] #1 #1 [place] [address] PCP - General 03/23/22 documented as of this encounter
--- OUTSIDE RECORDS SUMMARY | 2024-12-19 09:03 | XMS_ITS | Clinical Summary ---
Author Organization [facility] Address [address] [place] [address] Care Team Providers Care Research Engineer Marine Equipment Name Role Phone David Vazquez Primary Care Provider [phone] Allergies No known active allergies Medications atorvastatin [...] Screening 11/04/2015 Diabetes A1c Monitoring 07/26/2023 01/24/2023 Advance Care Planning 04/16/2024 Depression Screening 04/16/2024 Diabetes Mellitus Microalbumin (Yearly) 04/16/2024 Renal Monitoring 04/16/2024 01/24/2023 COVID-19 Vaccine (1 - season) 2024 Influenza Vaccination (#1) 2024 RSV Vaccines (1 - 1-dose 75+ series) 2025 Medical Devices Implanted Type Area Medical Practice Administrator Device Identifier Shelf Expiration Date Model / Serial / Lot Mis Ply Scr 6.5x50mm - [id number] Implanted:Qty : 1 on 01/30/2023 by Ivan Bartholomew MD at [facility] Screw N/A: Spine Lumbar [employer] [id number] / / Mis Ply Scr 6.5x45mm - [id number] Implanted:Qty : 3 on 01/30/2023 by Ivan Bartholomew MD at [facility] Screw N/A: Spine Lumbar [employer] [id number] / / Reline Mas Reduction Screw 7.5x45 - [id number] Implanted:Qty : 2 on 01/30/2023 by Ivan Bartholomew MD at [facility] Screw N/A: Spine Lumbar [employer] [id number] / / Grft Dbm Vesuvius Putty 5cc - [id number] Implanted:Qty : 1 on 01/30/2023 by Ivan Bartholomew MD at [facility] [employer] [id number] 04/20/2025 [id number] P / [id number] / Putty I-Factor 5.0cc - [id number] Implanted:Qty : 1 on 01/30/2023 by Ivan Bartholomew MD at [facility] N/A: Spine Lumbar [employer] 03/15/2025 [id number] / / [id number] Modulus Xlw [id number] 10 Degree - [id number] Implanted:Qty : 1 on 01/30/2023 by Ivan Bartholomew MD at [facility] N/A: Spine Lumbar [employer] [id number] / / [id number] Modulus Xlw [id number] - [id number] Implanted:Qty : 1 on 01/30/2023 by Ivan Bartholomew MD at [facility] N/A: Spine Lumbar [employer] 09/28/2027 [id number] / / [id number] Reln Lock Scr 5.5mm Opn Tulip - [id number] Implanted:Qty : 6 on 01/30/2023 by Ivan Bartholomew MD at [facility] N/A: Spine Lumbar [employer] [id number] / / Reln Mas Ti Petar 5.5x70mm - [id number] Implanted:Qty : 2 on 01/30/2023 by Ivan Bartholomew MD at [facility] N/A: Spine Lumbar [employer] [id number] / / Procedures Procedure Name Priority Date/Time [...] Hgb A1C 6.0(H) 4.0 - 5.6 % [facility] Comment: Reference Ranges for [...] Glycohemoglobin Standardization program (NGSP) and [facility] Estimated Average Glucose 126(H) 68 - 114 mg/dL [facility] Whole Blood (Blood) 01/24/2023 2:32 PM EDT 01/24/2023 6:00 PM EDT us Ivan Bartholomew MD CHEMISTRY ORDERABLES Fin al Result [facility] [address] * (ABNORMAL) BASIC METABOLIC PANEL (BMP=EP1) (01/24/2023 2:32 PM EDT) Sodium 141 135 - 146 mmol/L [facility] Potassium 4.8 3.5 - 5.1 mmol/L [facility] Chloride 107 98 - 110 mmol/L [facility] CO2 24 22 - 29 mmol/L [facility] Anion Gap 10 5 - 13 mmol/L [facility] Comment:Anion gap calculatio n does not include potassium (K+) value. BUN 17 7 - 25 mg/dL [facility] Creatinine 1.20 0.50 - 1.20 mg/dL [facility] Glucose 125(H) 71 - 99 mg/dL [facility] Comment:Reference range (71- 99 mg/dL) refers only to fasting samples, and does not apply to non-fasting samples. eGFR CKD-EPI 2020 48 See Note [facility] Comment: eGFR calculated with 2020 CKD-EPI equation using creatinine, patient's age and gender. Other factors, especially muscle mass, may affect accuracy and need to be considered. Patient values should be interpreted as a trend. The reference interval is >60 mL/min/1.73m2. Calcium 10.3 8.5 - 10.5 mg/dL [facility] BUN/Creatinine Ratio 14 [facility] Serum 01/24/2023 2:32 PM EDT 01/24/2023 5:54 PM EDT us Lexi SUAREZ CHEMISTRY ORDERABLES Final Resu lt [facility] [address] from Last 3 Months or Most Recently Relevant to Health Maintenance Insurance MEDICARE PART A [facility] [address] [place] [address] ANTH Advance Directives For more information, please contact: [phone] * Full Code (Latest Code Status on File) Date Activated Date Inactivated Comments 01/30/2023 9:13 AM No automated chest compression devices for [facility] Patients Care Teams Research Engineer Marine Equipment Relationship Specialty Start Date End Date David Vazquez [address] [place] [address] PCP - General 01/24/23
--- OUTSIDE RECORDS SUMMARY | 2024-12-19 09:03 | XMS_ITS | Encounter Summary ---
Author Organization [facility] Address [address] [place] [address] Care Team Providers Care Button Broacher Name Role Phone Jevon Vazquez MD Primary Care Provider [phone] Reason for Visit * Reason Comments Med Refill Encounter Details Date Type Department Care Team ([facility] Contact Info) Description 01/30/2024 Refill [facility] Hematology/BMT and Cellular Therapy Program [address] [phone] New Mckinney MD 800 [facility] [address] [place] [address] Social History Tobacco Use Types Packs/Day Years [...] Upcoming Encounters Date Type Department Care Team ([facility] Contact Info) Description 12/30/2024 8:30 AM EDT Clinical Support [facility] Hematology/BMT and Cellular Therapy Program [address] [place] [address] 12/30/2024 9:00 AM EDT Office Visit [facility] Hematology/BMT and Cellular Therapy Program [address] [address] Bibiana Sepulveda, MOLD CLOSER HELPER [address] [facility] [address] [place] [address] 12/30/2024 10:30 AM EDT Appointment [facility] 1 [address] [place] [address] 12/31/2024 3:00 PM EDT Appointment [facility] 1 [address] [place] [address] 01/01/2025 3:00 PM EDT Appointment [facility] 1 [address] [place] [address] 01/02/2025 2:00 PM EDT Appointment [facility] 1 [address] [place] [address] 01/03/2025 2:00 PM EDT Appointment [facility] 1 [address] [place] [address] 01/04/2025 2:00 PM EDT Appointment [facility] 1 [address] [place] [address] 01/05/2025 4:00 PM EDT Appointment [facility] 1 [address] [place] [address] documented as of this encounter Visit Diagnoses Not on filedocumented in this encounter Additional Health Concerns Assessment Noted Time A fall risk assessment has been complete d for the patient 01/11/2024 9:16 AM EDT A Body Mass Index follow-up plan has been documented for the patient 01/21/2024 6:16 AM EDT documented as of this encounter Care Teams Button Broacher Relationship Specialty Start Date End Date Jevon Vazquez MD [address] [place] [address] #1 #1 [place] [address] PCP - General 03/23/22 documented as of this encounter
--- OUTSIDE RECORDS SUMMARY | 2024-12-19 09:03 | XMS_ITS | Encounter Summary ---
Author Organization [facility] Address [address] [place] [address] Care Team Providers Care Sequins Slinger Name Role Phone Jevon Vazquez MD Primary Care Provider [phone] Encounter Details Date Type Department Care Team ([facility] Contact Info) Description 10/29/2024 Refill [facility] Hematology/BMT and Cellular Therapy Program [address] [address] Zonia Hoffman, SENIOR DIRECTOR OF GLOBAL COMMERCIAL TECHNOLOGY SOLUTIONS 800 [facility] [address] [place] [address] Acute myeloid leukemia not having achieved remission [...] Encounters Date Type Department Care Team ([facility] Contact Info) Description 12/30/2024 8:30 AM EDT Clinical Support [facility] Hematology/BMT and Cellular Therapy Program [address] [address] 12/30/2024 9:00 AM EDT Office Visit [facility] Hematology/BMT and Cellular Therapy Program [address] [place] [address] Bibiana Sepulveda, SENIOR DIRECTOR OF GLOBAL COMMERCIAL TECHNOLOGY SOLUTIONS 800 [facility] [address] [place] [address] 12/30/2024 10:30 AM EDT Appointment [facility] 1 [address] [place] [address] 12/31/2024 3:00 PM EDT Appointment [facility] 1 [address] [place] [address] 01/01/2025 3:00 PM EDT Appointment [facility] 1 [address] [place] [address] 01/02/2025 2:00 PM EDT Appointment [facility] 1 [address] [place] [address] 01/03/2025 2:00 PM EDT Appointment [facility] 1 [address] [place] [address] 01/04/2025 2:00 PM EDT Appointment [facility] 1 [address] [place] [address] 01/05/2025 4:00 PM EDT Appointment [facility] 1 [address] [place] [address] documented as of this encounter Visit Diagnoses [...] documented as of this encounter Care Teams Sequins Slinger Relationship Specialty Start Date End Date Jevon Vazquez MD [address] [place] [address] #1 #1 [place] [address] PCP - General 03/23/22 documented as of this encounter
--- OUTSIDE RECORDS SUMMARY | 2024-12-19 09:03 | XMS_ITS | Encounter Summary ---
Author Organization Healthcare Address [address] [place] [address] Care Team Providers Care Lumber Grader Name Role Phone Jevon Vazquez MD Primary Care Provider [phone] Encounter Details Date Type Department Care Team [...] Hematology/BMT and Cellular Therapy Program [address] [address] 12/30/2024 9:00 AM EDT Office Visit [facility] Hematology/BMT and Cellular Therapy Program [address] [address] Bibiana Sepulveda, MANAGER WATER 800 [facility] [address] [place] [address] 12/30/2024 10:30 AM EDT Appointment [facility] 1 [address] [place] [address] 12/31/2024 3:00 PM EDT Appointment [facility] 1 [address] [place] [address] 01/01/2025 3:00 PM EDT Appointment [facility] 1 [address] [place] [address] 01/02/2025 2:00 PM EDT Appointment [facility] 1 [address] [place] [address] 01/03/2025 2:00 PM EDT Appointment [facility] 1 [address] [place] [address] 01/04/2025 2:00 PM EDT Appointment [facility] 1 [address] [place] [address] 01/05/2025 4:00 PM EDT Appointment [facility] 1 [address] [place] [address] documented as of this encounter Visit Diagnoses Not on filedocumented in this encounter Additional Health Concerns Assessment Noted Time A fall risk assessment has been complete d for the patient 09/30/2024 9:33 AM EDT A Body Mass Index follow-up plan has been documented for the patient 05/28/2024 1:52 PM EST documented as of this encounter Care Teams Lumber Grader Relationship Specialty Start Date End Date Jevon Vazquez MD [address] [place] [address] #1 [address]1 [place] [address] PCP - General 03/23/22 documented as of this encounter
--- OUTSIDE RECORDS SUMMARY | 2024-12-19 09:03 | XMS_ITS | Encounter Summary ---
Author Organization Healthcare Address [address] [place] [address] Care Team Providers Care Sales Developer Name Role Phone Jevon Vazquez MD Primary Care Provider [phone] Encounter Details Date Type Department Care Team [...] Hematology/BMT and Cellular Therapy Program [address] [address] 12/30/2024 9:00 AM EDT Office Visit [facility] Hematology/BMT and Cellular Therapy Program [address] [address] Bibiana Sepulveda, MUD JACK OPERATOR 800 [facility] [address] [place] [address] 12/30/2024 10:30 AM EDT Appointment [facility] 1 [address] [place] [address] 12/31/2024 3:00 PM EDT Appointment [facility] 1 [address] [place] [address] 01/01/2025 3:00 PM EDT Appointment [facility] 1 [address] [place] [address] 01/02/2025 2:00 PM EDT Appointment [facility] 1 [address] [place] [address] 01/03/2025 2:00 PM EDT Appointment [facility] 1 [address] [place] [address] 01/04/2025 2:00 PM EDT Appointment [facility] 1 [address] [place] [address] 01/05/2025 4:00 PM EDT Appointment [facility] 1 [address] [place] [address] documented as of this encounter Visit Diagnoses Not on filedocumented in this encounter Additional Health Concerns Assessment Noted Time A fall risk assessment has been complete d for the patient 09/30/2024 9:33 AM EDT A Body Mass Index follow-up plan has been documented for the patient 05/28/2024 1:52 PM EST documented as of this encounter Care Teams Sales Developer Relationship Specialty Start Date End Date Jevon Vazquez MD [address] [place] [address] #1 [address]1 [place] [address] PCP - General 03/23/22 documented as of this encounter
--- OUTSIDE RECORDS SUMMARY | 2024-12-19 09:03 | XMS_ITS | Encounter Summary ---
Author Organization Healthcare Address [address] [place] [address] Care Team Providers Care Verification Lead Name Role Phone Jevon Vazquez MD Primary Care Provider [phone] Encounter Details Date Type Department Care Team [...] Hematology/BMT and Cellular Therapy Program [address] [address] 12/30/2024 9:00 AM EDT Office Visit [facility] Hematology/BMT and Cellular Therapy Program [address] [address] Bibiana Sepulveda, IRON PILER 800 [facility] [address] [place] [address] 12/30/2024 10:30 AM EDT Appointment [facility] 1 [address] [place] [address] 12/31/2024 3:00 PM EDT Appointment [facility] 1 [address] [place] [address] 01/01/2025 3:00 PM EDT Appointment [facility] 1 [address] [place] [address] 01/02/2025 2:00 PM EDT Appointment [facility] 1 [address] [place] [address] 01/03/2025 2:00 PM EDT Appointment [facility] 1 [address] [place] [address] 01/04/2025 2:00 PM EDT Appointment [facility] 1 [address] [place] [address] 01/05/2025 4:00 PM EDT Appointment [facility] 1 [address] [place] [address] documented as of this encounter Visit Diagnoses Not on filedocumented in this encounter Additional Health Concerns Assessment Noted Time A fall risk assessment has been complete d for the patient 09/30/2024 9:33 AM EDT A Body Mass Index follow-up plan has been documented for the patient 05/28/2024 1:52 PM EST documented as of this encounter Care Teams Verification Lead Relationship Specialty Start Date End Date Jevno Vazquez MD [address] [place] [address] #1 [address]1 [place] [address] PCP - General 03/23/22 documented as of this encounter
--- OUTSIDE RECORDS SUMMARY | 2024-12-19 09:03 | XMS_ITS | Encounter Summary ---
Author Organization Healthcare Address [address] [place] [address] Care Team Providers Care Childhood Teacher Name Role Phone Jevon Vazquez MD Primary Care Provider [phone] Encounter Details Date Type Department Care Team [...] Hematology/BMT and Cellular Therapy Program [address] [address] 12/30/2024 9:00 AM EDT Office Visit [facility] Hematology/BMT and Cellular Therapy Program [address] [address] Bibiana Sepulveda, SKIVER MACHINE 800 [facility] [address] [place] [address] 12/30/2024 10:30 AM EDT Appointment [facility] 1 [address] [place] [address] 12/31/2024 3:00 PM EDT Appointment [facility] 1 [address] [place] [address] 01/01/2025 3:00 PM EDT Appointment [facility] 1 [address] [place] [address] 01/02/2025 2:00 PM EDT Appointment [facility] 1 [address] [place] [address] 01/03/2025 2:00 PM EDT Appointment [facility] 1 [address] [place] [address] 01/04/2025 2:00 PM EDT Appointment [facility] 1 [address] [place] [address] 01/05/2025 4:00 PM EDT Appointment [facility] 1 [address] [place] [address] documented as of this encounter Visit Diagnoses Not on filedocumented in this encounter Additional Health Concerns Assessment Noted Time A fall risk assessment has been complete d for the patient 09/30/2024 9:33 AM EDT A Body Mass Index follow-up plan has been documented for the patient 05/28/2024 1:52 PM EST documented as of this encounter Care Teams Childhood Teacher Relationship Specialty Start Date End Date Jevon Vazquez MD [address] [place] [address] #1 [address]1 [place] [address] PCP - General 03/23/22 documented as of this encounter
--- OUTSIDE RECORDS SUMMARY | 2024-12-19 09:03 | XMS_ITS ---
Author Organization [facility] Address [address] [place] [address] Care Team Providers Care Application Integration Engineer Name Role Phone Jevon Vazquez MD Primary Care Provider [phone] Active Problems Problem Noted Date Diagnosed Date [...]
--- OUTSIDE RECORDS SUMMARY | 2024-12-19 09:03 | XMS_ITS | Encounter Summary ---
Author Organization Healthcare Address [address] [place] [address] Care Team Providers Care Microstrategy Reports Developer Name Role Phone Jevon Vazquez MD Primary Care Provider [phone] Encounter Details Date Type Department Care Team [...] Hematology/BMT and Cellular Therapy Program [address] [address] 12/30/2024 9:00 AM EDT Office Visit [facility] Hematology/BMT and Cellular Therapy Program [address] [address] Bibiana Sepulveda, INTERNAL CONTROLS SPECIALIST 800 [facility] [address] [place] [phone] 12/30/2024 10:30 AM EDT Appointment [facility] 1 [address] [place] [address] 12/31/2024 3:00 PM EDT Appointment [facility] 1 [address] [place] [address] 01/01/2025 3:00 PM EDT Appointment [facility] 1 [address] [place] [address] 01/02/2025 2:00 PM EDT Appointment [facility] 1 [address] [place] [address] 01/03/2025 2:00 PM EDT Appointment [facility] 1 [address] [place] [address] 01/04/2025 2:00 PM EDT Appointment [facility] 1 [address] [place] [address] 01/05/2025 4:00 PM EDT Appointment [facility] 1 [address] [place] [address] documented as of this encounter Visit Diagnoses Not on filedocumented in this encounter Additional Health Concerns Assessment Noted Time A fall risk assessment has been complete d for the patient 09/30/2024 9:33 AM EDT A Body Mass Index follow-up plan has been documented for the patient 05/28/2024 1:52 PM EST documented as of this encounter Care Teams Microstrategy Reports Developer Relationship Specialty Start Date End Date Jevon Vazquez MD [address] [place] [address] [address]1 [address]1 [place] [address] PCP - General 03/23/22 documented as of this encounter
--- OUTSIDE RECORDS SUMMARY | 2024-12-19 09:03 | XMS_ITS | Encounter Summary ---
Author Organization [facility] Address [address] [place] [address] Care Team Providers Care Group Cio Name Role Phone Jevon Vazquez MD Primary Care Provider [phone] Reason for Visit * Reason Comments Med Refill Encounter Details Date Type Department Care Team ([facility] Contact Info) Description 11/08/2024 Refill [facility] Hematology/BMT and Cellular Therapy Program [address] [phone] [place]in[place] MD 800 [facility] [address] [place] [phone] Social History Tobacco Use Types Packs/Day Years [...] Upcoming Encounters Date Type Department Care Team ([facility] Contact Info) Description 12/30/2024 8:30 AM EDT Clinical Support [facility] Hematology/BMT and Cellular Therapy Program [address] [phone] 12/30/2024 9:00 AM EDT Office Visit [facility] Hematology/BMT and Cellular Therapy Program [address] [address] Bibiana Sepulveda, BRACELET FORM COVERER [address] [facility] [address] [place] [address] 12/30/2024 10:30 AM EDT Appointment [facility] 1 [address] [place] [address] 12/31/2024 3:00 PM EDT Appointment [facility] 1 [address] [place] [address] 01/01/2025 3:00 PM EDT Appointment [facility] 1 [address] [place] [address] 01/02/2025 2:00 PM EDT Appointment [facility] 1 [address] [place] [address] 01/03/2025 2:00 PM EDT Appointment [facility] 1 [address] [place] [address] 01/04/2025 2:00 PM EDT Appointment [facility] 1 [address] [place] [address] 01/05/2025 4:00 PM EDT Appointment [facility] 1 [address] [place] [address] documented as of this encounter Visit Diagnoses Not on filedocumented in this encounter Additional Health Concerns Assessment Noted Time A fall risk assessment has been complete d for the patient 09/30/2024 9:33 AM EDT A Body Mass Index follow-up plan has been documented for the patient 05/28/2024 1:52 PM EST documented as of this encounter Care Teams Group Cio Relationship Specialty Start Date End Date Jevon Vazquez MD [address] [place] [address] #1 [address]1 [place] [address] PCP - General 03/23/22 documented as of this encounter
--- OUTSIDE RECORDS SUMMARY | 2024-12-19 09:03 | XMS_ITS | Encounter Summary ---
Author Organization Healthcare Address [address] [place] [address] Care Team Providers Care Trial Attorney Name Role Phone Jevon Vazquez MD Primary Care Provider [phone] Encounter Details Date Type Department Care Team (Late Contact Info) Description 11/27/2024 Telephone [facility] Hematology/BMT and Cellular Therapy Program [address] [address] Zonia Hoffman, PICKLING OPERATOR 800 [facility] [address] [place] [phone] Social History Tobacco Use Types Packs/Day Years [...] Hematology/BMT and Cellular Therapy Program 750 [facility] [place] [address] 12/30/2024 9:00 AM EDT Office Visit [facility] Hematology/BMT and Cellular Therapy Program 750 [facility], [facility] [place] [address] Bibiana Sepulveda, PICKLING OPERATOR 800 [facility] [address] [place] [phone] 12/30/2024 10:30 AM EDT Appointment [facility] 1 [address] [place] [address] 12/31/2024 3:00 PM EDT Appointment [facility] 1 [address] [place] [address] 01/01/2025 3:00 PM EDT Appointment [facility] 1 [address] [place] [address] 01/02/2025 2:00 PM EDT Appointment [facility] 1 [address] [place] [address] 01/03/2025 2:00 PM EDT Appointment [facility] 1 [address] [place] [address] 01/04/2025 2:00 PM EDT Appointment [facility] Infusion Clinic 1 [address] [place] [address] 01/05/2025 4:00 PM EDT Appointment [facility] 1 [address] [place] [address] documented as of this encounter Visit Diagnoses Not on filedocumented in this encounter Additional Health Concerns Assessment Noted Time A fall risk assessment has been complete d for the patient 09/30/2024 9:33 AM EDT A Body Mass Index follow-up plan has been documented for the patient 05/28/2024 1:52 PM EST documented as of this encounter Care Teams Trial Attorney Relationship Specialty Start Date End Date Jevon Vazquez MD [address] [place] [address] #1 [address]1 [place] [address] PCP - General 03/23/22 documented as of this encounter
--- OUTSIDE RECORDS SUMMARY | 2024-12-19 09:03 | XMS_ITS | Encounter Summary ---
Author Organization Healthcare Address [address] [place] [address] Care Team Providers Care Corporate Relations Manager Name Role Phone Jevon Vazquez MD Primary Care Provider [phone] Encounter Details Date Type Department Care Team [...] Cellular Therapy Program [address] [address] 12/30/2024 9:00 AM EDT Office Visit [facility] Hematology/BMT and Cellular Therapy Program [address] [address] Bibiana Sepulveda, OFFAL SEPARATOR 800 [facility] [address] [place] [address] 12/30/2024 10:30 AM EDT Appointment [facility] 1 [address] [place] [address] 12/31/2024 3:00 PM EDT Appointment [facility] 1 [address] [place] [address] 01/01/2025 3:00 PM EDT Appointment [facility] 1 [address] [place] [address] 01/02/2025 2:00 PM EDT Appointment [facility] 1 [address] [place] [address] 01/03/2025 2:00 PM EDT Appointment [facility] 1 [address] [place] [address] 01/04/2025 2:00 PM EDT Appointment [facility] 1 [address] [place] [address] 01/05/2025 4:00 PM EDT Appointment [facility] 1 [address] [place] [address] documented as of this encounter Visit Diagnoses Not on filedocumented in this encounter Additional Health Concerns Assessment Noted Time A fall risk assessment has been complete d for the patient 09/30/2024 9:33 AM EDT A Body Mass Index follow-up plan has been documented for the patient 05/28/2024 1:52 PM EST documented as of this encounter Care Teams Corporate Relations Manager Relationship Specialty Start Date End Date Jevon Vazquez MD [address] [place] [address] #1 [address]1 [place] [address] PCP - General 03/23/22 documented as of this encounter
--- OUTSIDE RECORDS SUMMARY | 2024-12-19 09:03 | XMS_ITS | Encounter Summary ---
Author Organization Healthcare Address [address] [place] [address] Care Team Providers Care Property Consultant Name Role Phone Jevon Vazquez MD Primary Care Provider [phone] Encounter Details Date Type Department Care Team ([facility] st Contact Info) Description 10/27/2024 Telephone [facility] Hematology/BMT and Cellular Therapy Program [address] [address] Zonia Hoffman, SCOOP MACHINE OPERATOR 800 [facility] [address] [place] [phone] Social History Tobacco Use Types Packs/Day Years [...] and her new appts will be on [place]. She verbalizes understanding. * Telephone Encounter - [...] Hematology/BMT and Cellular Therapy Program [address] [address] 12/30/2024 9:00 AM EDT Office Visit [facility] Hematology/BMT and Cellular Therapy Program [address] [address] Bibiana Sepulveda, SCOOP MACHINE OPERATOR 800 [facility] [address] [place] [phone] 12/30/2024 10:30 AM EDT Appointment [facility] 1 [address] [place] [address] 12/31/2024 3:00 PM EDT Appointment [facility] 1 [address] [place] [address] 01/01/2025 3:00 PM EDT Appointment [facility] 1 [address] [place] [address] 01/02/2025 2:00 PM EDT Appointment [facility] 1 [address] [place] [address] 01/03/2025 2:00 PM EDT Appointment [facility] 1 [address] [place] [address] 01/04/2025 2:00 PM EDT Appointment [facility] 1 [address] [place] [address] 01/05/2025 4:00 PM EDT Appointment [facility] 1 [address] [place] [address] documented as of this encounter Visit Diagnoses Not on filedocumented in this encounter Additional Health Concerns Assessment Noted Time A fall risk assessment has been complete d for the patient 09/30/2024 9:33 AM EDT A Body Mass Index follow-up plan has been documented for the patient 05/28/2024 1:52 PM EST documented as of this encounter Care Teams Property Consultant Relationship Specialty Start Date End Date Jevon Vazquez MD [address] [place] [address] #1 #1 [place] [address] PCP - General 03/23/22 documented as of this encounter
--- OUTSIDE RECORDS SUMMARY | 2024-12-19 09:03 | XMS_ITS | Encounter Summary ---
Author Organization [facility] Address [address] [place] [address] Care Team Providers Care Traveling Passenger Agent Name Role Phone Jevon Vazquez MD Primary Care Provider [phone] Reason for Visit * Reason Comments Med Refill Encounter Details Date Type Department Care Team ([facility] Contact Info) Description 12/09/2024 Refill [facility] Hematology/BMT and Cellular Therapy Program [address] [phone] Zonia Hoffman, PAPER GUILLOTINE OPERATOR 800 [facility] [address] [place] [phone] Social History Tobacco Use Types Packs/Day Years [...] Team ([facility] Contact Info) Description 12/30/2024 8:30 AM EDT Clinical Support [facility] Hematology/BMT and Cellular Therapy Program [address] [phone] 12/30/2024 9:00 AM EDT Office Visit [facility] Hematology/BMT and Cellular Therapy Program [address] [phone] Bibiana Sepulveda, PAPER GUILLOTINE OPERATOR [address] [facility] [address] [place] [address] 12/30/2024 10:30 AM EDT Appointment [facility] 1 [address] [place] [address] 12/31/2024 3:00 PM EDT Appointment [facility] 1 [address] [place] [address] 01/01/2025 3:00 PM EDT Appointment [facility] 1 [address] [place] [address] 01/02/2025 2:00 PM EDT Appointment [facility] 1 [address] [place] [address] 01/03/2025 2:00 PM EDT Appointment [facility] 1 [address] [place] [address] 01/04/2025 2:00 PM EDT Appointment [facility] 1 [address] [place] [address] 01/05/2025 4:00 PM EDT Appointment [facility] 1 [address] [place] [address] documented as of this encounter Visit Diagnoses Not on filedocumented in this encounter Additional Health Concerns Assessment Noted Time A fall risk assessment has been complete d for the patient 09/30/2024 9:33 AM EDT A Body Mass Index follow-up plan has been documented for the patient 05/28/2024 1:52 PM EST documented as of this encounter Care Teams Traveling Passenger Agent Relationship Specialty Start Date End Date Jevon Vazquez MD [address] [place] [address] #1 #1 [place] [id number] PCP - General 03/23/22 documented as of this encounter
--- OUTSIDE RECORDS SUMMARY | 2024-12-19 09:03 | XMS_ITS | Encounter Summary ---
Author Organization Healthcare Address [address] [place] [address] Care Team Providers Care Calibration Laboratory Technician Name Role Phone Jevon Vazquez MD Primary Care Provider [phone] Encounter Details Date Type Department Care Team [...] Hematology/BMT and Cellular Therapy Program [address] [address] 12/30/2024 9:00 AM EDT Office Visit [facility] Hematology/BMT and Cellular Therapy Program [address] [address] Bibiana Sepulveda, PLASTIC SEWER 800 [facility] [address] [place] [address] 12/30/2024 10:30 AM EDT Appointment [facility] 1 [address] [place] [address] 12/31/2024 3:00 PM EDT Appointment [facility] 1 [address] [place] [address] 01/01/2025 3:00 PM EDT Appointment [facility] 1 [address] [place] [address] 01/02/2025 2:00 PM EDT Appointment [facility] 1 [address] [place] [address] 01/03/2025 2:00 PM EDT Appointment [facility] 1 [address] [place] [address] 01/04/2025 2:00 PM EDT Appointment [facility] 1 [address] [place] [address] 01/05/2025 4:00 PM EDT Appointment [facility] 1 [address] [place] [address] documented as of this encounter Visit Diagnoses Not on filedocumented in this encounter Additional Health Concerns Assessment Noted Time A fall risk assessment has been complete d for the patient 09/30/2024 9:33 AM EDT A Body Mass Index follow-up plan has been documented for the patient 05/28/2024 1:52 PM EST documented as of this encounter Care Teams Calibration Laboratory Technician Relationship Specialty Start Date End Date Jevon Vazquez MD [address] [place] [address] #1 [address]1 [place] [address] PCP - General 03/23/22 documented as of this encounter
--- OUTSIDE RECORDS SUMMARY | 2024-12-19 09:03 | XMS_ITS | Encounter Summary ---
Author Organization Healthcare Address [address] [place] [address] Care Team Providers Care Lance Crewmember Name Role Phone Jevon Vazquez MD Primary Care Provider [phone] Encounter Details Date Type Department Care Team ([facility] st Contact Info) Description 10/28/2024 Telephone [facility] Hematology/BMT and Cellular Therapy Program [address] [address] Zonia Hoffman, SEAFOOD PREPARER 800 [facility] [address] [place] [phone] Social History Tobacco Use Types Packs/Day Years [...] go over her labs results Callback number: [phone] documented in this encounter Plan of Treatment Upcoming Encounters Date Type Department Care Team (Late st Contact Info) Description 12/30/2024 8:30 AM EDT Clinical Support [facility]AV Hematology/BMT and Cellular Therapy Program 750 [facility], [address] [place] [phone] 12/30/2024 9:00 AM EDT Office Visit [facility]AV Hematology/BMT and Cellular Therapy Program 750 [facility], [address] [place] [phone] Bibiana Sepulveda, SEAFOOD PREPARER 800 [facility] [address] [place] [phone] 12/30/2024 10:30 AM EDT Appointment [facility] Infusion Clinic 1 [address] [place] [address] 12/31/2024 3:00 PM EDT Appointment [facility] 1 [address] [place] [address] 01/01/2025 3:00 PM EDT Appointment [facility] 1 [address] [place] [address] 01/02/2025 2:00 PM EDT Appointment [facility] Infusion Clinic 1 [address] [place] [address] 01/03/2025 2:00 PM EDT Appointment [facility] 1 [address] [place] [address] 01/04/2025 2:00 PM EDT Appointment [facility] 1 [address] [place] [address] 01/05/2025 4:00 PM EDT Appointment [facility] 1 [address] [place] [address] documented as of this encounter Visit Diagnoses Not on filedocumented in this encounter Additional Health Concerns Assessment Noted Time A fall risk assessment has been complete d for the patient 09/30/2024 9:33 AM EDT A Body Mass Index follow-up plan has been documented for the patient 05/28/2024 1:52 PM EST documented as of this encounter Care Teams Lance Crewmember Relationship Specialty Start Date End Date Jevon Vazquez MD [address] [place] [address] #1 #1 [place] [address] PCP - General 03/23/22 documented as of this encounter
--- OUTSIDE RECORDS SUMMARY | 2024-12-19 09:03 | XMS_ITS | Encounter Summary ---
Author Organization Healthcare Address [address] [place] [address] Care Team Providers Care Appraisal Specialist Name Role Phone Jevon Vazquez MD [...] Hematology/BMT and Cellular Therapy Program [address] [address] 12/30/2024 9:00 AM EDT Office Visit [facility] Hematology/BMT and Cellular Therapy Program [address] [address] Bibiana Sepulveda, FIREARMS MODEL MAKER 800 [facility] [address] [place] [phone] 12/30/2024 10:30 AM EDT Appointment [facility] 1 [address] [place] [address] 12/31/2024 3:00 PM EDT Appointment [facility] 1 [address] [place] [address] 01/01/2025 3:00 PM EDT Appointment [facility] 1 [address] [place] [address] 01/02/2025 2:00 PM EDT Appointment [facility] 1 [address] [place] [address] 01/03/2025 2:00 PM EDT Appointment [facility] 1 [address] [place] [address] 01/04/2025 2:00 PM EDT Appointment [facility] 1 [address] [place] [address] 01/05/2025 4:00 PM EDT Appointment [facility] 1 [address] [place] [address] documented as of this encounter Visit Diagnoses Not on filedocumented in this encounter Additional Health Concerns Assessment Noted Time A fall risk assessment has been complete d for the patient 09/30/2024 9:33 AM EDT A Body Mass Index follow-up plan has been documented for the patient 05/28/2024 1:52 PM EST documented as of this encounter Care Teams Appraisal Specialist Relationship Specialty Start Date End Date Jevon Vazquez MD [address] [place] [address] #1 [address]1 [place] [address] PCP - General 03/23/22 documented as of this encounter
--- OUTSIDE RECORDS SUMMARY | 2024-12-19 09:03 | XMS_ITS | Encounter Summary ---
Author Organization Healthcare Address [address] [place] [address] Care Team Providers Care Horse Race Starter Name Role Phone Jevon Vazquez MD Primary [...] Hematology/BMT and Cellular Therapy Program [address] [address] 12/30/2024 9:00 AM EDT Office Visit [facility] Hematology/BMT and Cellular Therapy Program [address] [address] Bibiana Sepulveda, ASSOCIATE PROFESSOR OF ART 800 [facility] [address] [place] [address] 12/30/2024 10:30 AM EDT Appointment [facility] 1 [address] [place] [address] 12/31/2024 3:00 PM EDT Appointment [facility] 1 [address] [place] [address] 01/01/2025 3:00 PM EDT Appointment [facility] 1 [address] [place] [address] 01/02/2025 2:00 PM EDT Appointment [facility] 1 [address] [place] [address] 01/03/2025 2:00 PM EDT Appointment [facility] 1 [address] [place] [address] 01/04/2025 2:00 PM EDT Appointment [facility] 1 [address] [place] [address] 01/05/2025 4:00 PM EDT Appointment [facility] 1 [address] [place] [address] documented as of this encounter Visit Diagnoses Not on filedocumented in this encounter Additional Health Concerns Assessment Noted Time A fall risk assessment has been complete d for the patient 09/30/2024 9:33 AM EDT A Body Mass Index follow-up plan has been documented for the patient 05/28/2024 1:52 PM EST documented as of this encounter Care Teams Horse Race Starter Relationship Specialty Start Date End Date Jevon Vazquez MD [address] [place] [address] #1 [address]1 [place] [address] PCP - General 03/23/22 documented as of this encounter
--- OUTSIDE RECORDS SUMMARY | 2024-12-19 09:04 | XMS_ITS | Encounter Summary ---
Author Organization Healthcare Address [address] [place] [address] Care Team Providers Care Chestnut Tanner Name Role Phone Jevon Vazquez MD Primary Care Provider [phone] Encounter Details Date Type Department Care Team [...] Hematology/BMT and Cellular Therapy Program [address] [address] 12/30/2024 9:00 AM EDT Office Visit [facility] Hematology/BMT and Cellular Therapy Program [address] [address] Bibiana Sepulveda, CASING COOKER 800 [facility] [address] [place] [address] 12/30/2024 10:30 AM EDT Appointment [facility] 1 [address] [place] [address] 12/31/2024 3:00 PM EDT Appointment [facility] 1 [address] [place] [address] 01/01/2025 3:00 PM EDT Appointment [facility] 1 [address] [place] [address] 01/02/2025 2:00 PM EDT Appointment [facility] 1 [address] [place] [address] 01/03/2025 2:00 PM EDT Appointment [facility] 1 [address] [place] [address] 01/04/2025 2:00 PM EDT Appointment [facility] 1 [address] [place] [address] 01/05/2025 4:00 PM EDT Appointment [facility] 1 [address] [place] [address] documented as of this encounter Visit Diagnoses Not on filedocumented in this encounter Additional Health Concerns Assessment Noted Time A fall risk assessment has been complete d for the patient 09/30/2024 9:33 AM EDT A Body Mass Index follow-up plan has been documented for the patient 05/28/2024 1:52 PM EST documented as of this encounter Care Teams Chestnut Tanner Relationship Specialty Start Date End Date Jevon Vazquez MD [address] [place] [address] #1 [address]1 [place] [address] PCP - General 03/23/22 documented as of this encounter
--- OUTSIDE RECORDS SUMMARY | 2024-12-19 09:04 | XMS_ITS | Encounter Summary ---
Author Organization Healthcare Address [address] [place] [address] Care Team Providers Care Weekend Anchor Name Role Phone Jevon Vazquez MD Primary Care Provider [phone] Encounter Details Date Type Department Care Team [...] Hematology/BMT and Cellular Therapy Program [address] [address] 12/30/2024 9:00 AM EDT Office Visit [facility] H[facility]ology/BMT and Cellular Therapy Program [address] [address] Bibiana Sepulveda, CULLET TRUCKER 800 [facility] [address] [place] [address] 12/30/2024 10:30 AM EDT Appointment [facility] [address] [place] [address] 12/31/2024 3:00 PM EDT Appointment [facility] 1 [address] [place] [address] 01/01/2025 3:00 PM EDT Appointment [facility] 1 [address] [place] [address] 01/02/2025 2:00 PM EDT Appointment [facility] 1 [address] [place] [address] 01/03/2025 2:00 PM EDT Appointment [facility] 1 [address] [place] [address] 01/04/2025 2:00 PM EDT Appointment [facility] 1 [address] [place] [address] 01/05/2025 4:00 PM EDT Appointment [facility] 1 [address] [place] [address] documented as of this encounter Visit Diagnoses Not on filedocumented in this encounter Additional Health Concerns Assessment Noted Time A fall risk assessment has been complete d for the patient 09/30/2024 9:33 AM EDT A Body Mass Index follow-up plan has been documented for the patient 05/28/2024 1:52 PM EST documented as of this encounter Care Teams Weekend Anchor Relationship Specialty Start Date End Date Jevon Vazquez MD [address] [place] [address] [address] [place] [address] PCP - General 03/23/22 documented as of this encounter
--- OUTSIDE RECORDS SUMMARY | 2024-12-19 09:04 | XMS_ITS | Encounter Summary ---
Author Organization Healthcare Address [address] [place] [address] Care Team Providers Care Case Management Manager Name Role Phone Jevon Vazquez MD Primary Care Provider [phone] Encounter Details Date Type Department Care Team [...] Hematology/BMT and Cellular Therapy Program [address] [address] 12/30/2024 9:00 AM EDT Office Visit [facility] Hematology/BMT and Cellular Therapy Program [address] [address] Bibiana Sepulveda, DENTAL FLOSS PACKER 800 [facility] [address] [place] [address] 12/30/2024 10:30 AM EDT Appointment [facility] 1 [address] [place] [address] 12/31/2024 3:00 PM EDT Appointment [facility] 1 [address] [place] [address] 01/01/2025 3:00 PM EDT Appointment [facility] 1 [address] [place] [address] 01/02/2025 2:00 PM EDT Appointment [facility] 1 [address] [place] [address] 01/03/2025 2:00 PM EDT Appointment [facility] 1 [address] [place] [address] 01/04/2025 2:00 PM EDT Appointment [facility] 1 [address] [place] [address] 01/05/2025 4:00 PM EDT Appointment [facility] 1 [address] [place] [address] documented as of this encounter Visit Diagnoses Not on filedocumented in this encounter Additional Health Concerns Assessment Noted Time A fall risk assessment has been complete d for the patient 09/30/2024 9:33 AM EDT A Body Mass Index follow-up plan has been documented for the patient 05/28/2024 1:52 PM EST documented as of this encounter Care Teams Case Management Manager Relationship Specialty Start Date End Date Jevon Vazquez MD [address] [place] [address] [address] [place] [address] PCP - General 03/23/22 documented as of this encounter
--- OUTSIDE RECORDS SUMMARY | 2024-12-19 09:04 | XMS_ITS | Encounter Summary ---
Author Organization [facility] Address [address] [place] [address] Care Team Providers Care Flake Drier Name Role Phone Jevon Vazquez MD Primary Care Provider [phone] Encounter Details Date Type Department Care Team ([facility] Contact Info) Description 11/12/2024 Telephone [facility] Hematology/BMT and Cellular Therapy Program [address] [address] Zonia Hoffman, SKID ROAD MAN 800 [facility] [address] [place] [phone] Social History Tobacco Use Types Packs/Day Years [...] Hematology/BMT and Cellular Therapy Program [address] [place] [address] 12/30/2024 9:00 AM EDT Office Visit [facility] Hematology/BMT and Cellular Therapy Program 750 [facility] [place] [address] Bibiana Sepulveda, SKID RO[address] MAN 800 [facility] [address] [place] [address] 12/30/2024 10:30 AM EDT Appointment [facility] 1 [address] [place] [address] 12/31/2024 3:00 PM EDT Appointment [facility] 1 [address] [place] [address] 01/01/2025 3:00 PM EDT Appointment [facility] 1 [address] [place] [address] 01/02/2025 2:00 PM EDT Appointment [facility] 1 [address] [place] [address] 01/03/2025 2:00 PM EDT Appointment [facility] 1 [address] [place] [address] 01/04/2025 2:00 PM EDT Appointment [facility] 1 [address] [place] [address] 01/05/2025 4:00 PM EDT Appointment [facility] 1 [address] [place] [address] documented as of this encounter Visit Diagnoses Not on filedocumented in this encounter Additional Health Concerns Assessment Noted Time A fall risk assessment has been complete d for the patient 09/30/2024 9:33 AM EDT A Body Mass Index follow-up plan has been documented for the patient 05/28/2024 1:52 PM EST documented as of this encounter Care Teams Flake Drier Relationship Specialty Start Date End Date Jevon Vazquez MD [address] [place] [address] [address] [place] [address] PCP - General 03/23/22 documented as of this encounter
--- OUTSIDE RECORDS SUMMARY | 2024-12-19 09:04 | XMS_ITS | Encounter Summary ---
Author Organization Healthcare Address [address] [place] [address] Care Team Providers Care Washerette Machine Operator Name Role Phone Jevon Vazquez MD Primary Care Provider [phone] Encounter Details Date Type Department Care Team [...] Hematology/BMT and Cellular Therapy Program [address] [address] 12/30/2024 9:00 AM EDT Office Visit [facility] Hematology/BMT and Cellular Therapy Program [address] [address] Bibiana Sepulveda, TEST PILOT 800 [facility] [address] [place] [address] 12/30/2024 10:30 AM EDT Appointment [facility] 1 [address] [place] [address] 12/31/2024 3:00 PM EDT Appointment [facility] 1 [address] [place] [address] 01/01/2025 3:00 PM EDT Appointment [facility] 1 [address] [place] [address] 01/02/2025 2:00 PM EDT Appointment [facility] 1 [address] [place] [address] 01/03/2025 2:00 PM EDT Appointment [facility] 1 [address] [place] [address] 01/04/2025 2:00 PM EDT Appointment [facility] 1 [address] [place] [address] 01/05/2025 4:00 PM EDT Appointment [facility] 1 [address] [place] [address] documented as of this encounter Visit Diagnoses Not on filedocumented in this encounter Additional Health Concerns Assessment Noted Time A fall risk assessment has been complete d for the patient 09/30/2024 9:33 AM EDT A Body Mass Index follow-up plan has been documented for the patient 05/28/2024 1:52 PM EST documented as of this encounter Care Teams Washerette Machine Operator Relationship Specialty Start Date End Date Jevon Vazquez MD [address] [place] [address] [address] [place] [address] PCP - General 03/23/22 documented as of this encounter
--- OUTSIDE RECORDS SUMMARY | 2024-12-19 09:04 | XMS_ITS | Encounter Summary ---
Author Organization Healthcare Address [address] [place] [address] Care Team Providers Care Music Orchestrator Name Role Phone Jevon Vazquez MD Primary Care Provider [phone] Encounter Details Date Type Department Care Team [...] Hematology/BMT and Cellular Therapy Program [address] [address] 12/30/2024 9:00 AM EDT Office Visit [facility] Hematology/BMT and Cellular Therapy Program [address] [address] Bibiana Sepulveda, CIVIL ENGINEERING TECHNICIAN 800 [facility] [address] [place] [address] 12/30/2024 10:30 AM EDT Appointment [facility] 1 [address] [place] [address] 12/31/2024 3:00 PM EDT Appointment [facility] 1 [address] [place] [address] 01/01/2025 3:00 PM EDT Appointment [facility] 1 [address] [place] [address] 01/02/2025 2:00 PM EDT Appointment [facility] 1 [address] [place] [address] 01/03/2025 2:00 PM EDT Appointment [facility] 1 [address] [place] [address] 01/04/2025 2:00 PM EDT Appointment [facility] 1 [address] [place] [address] 01/05/2025 4:00 PM EDT Appointment [facility] 1 [address] [place] [address] documented as of this encounter Visit Diagnoses Not on filedocumented in this encounter Additional Health Concerns Assessment Noted Time A fall risk assessment has been complete d for the patient 09/30/2024 9:33 AM EDT A Body Mass Index follow-up plan has been documented for the patient 05/28/2024 1:52 PM EST documented as of this encounter Care Teams Music Orchestrator Relationship Specialty Start Date End Date Jevon Vazquez MD [address] [place] [address] [address] [place] [address] PCP - General 03/23/22 documented as of this encounter
--- OUTSIDE RECORDS SUMMARY | 2024-12-19 09:04 | XMS_ITS | Clinical Summary ---
Author Organization [facility] Address [address] [place] [address] Care Team Providers Care Director Of Development Name Role Phone Jevon Vazquez MD Primary Care Provider [phone] Allergies No known active allergies Medications amLODIPine [...] Hematology/BMT and Cellular Therapy Program [address] [phone] New Mckinney MD 12/10/2024 Travel 12/09/2024 Refill [facility] Hematology/BMT and Cellular Therapy Program [address] [phone] Zonia Hoffman, SALES LEAD 11/27/2024 Telephone [facility] Hematology/BMT and Cellular Therapy Program [address] [phone] Zonia Hoffman, SALES LEAD 11/26/2024 Travel 11/25/2024 Travel 11/24/2024 Travel 11/23/2024 Travel 11/22/2024 Travel 11/13/2024 Orders Only [facility] Hematology/BMT and Cellular Therapy Program [address] [phone] 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, door and arrival 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) 11/12/2024 Travel 11/12/2024 Telephone [facility] Hematology/BMT and Cellular Therapy Program [address] [phone] Zonia Hoffman, SALES LEAD 11/11/2024 Travel 11/10/2024 Travel 11/09/2024 Travel 11/08/2024 Travel 11/08/2024 Refill [facility] Hematology/BMT and Cellular Therapy Program [address] [phone] New Mckinney MD 11/07/2024 Travel 10/29/2024 Refill [facility] Hematology/BMT and Cellular Therapy Program [address] [phone] Zonia Hoffman, SALES LEAD 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); Immunosuppressed status (CMS/HCC) 10/28/2024 Telephone [facility] Hematology/BMT and Cellular Therapy Program [address] [phone] Zonia Hoffman, SALES LEAD 10/27/2024 Telephone [facility] Hematology/BMT and Cellular Therapy Program [address] [phone] Zonia Hoffman, SALES LEAD 10/27/2024 Travel 10/26/2024 Travel 10/24/2024 Travel 10/23/2024 Travel 10/22/2024 Travel 10/15/2024 Refill [facility] Hematology/BMT and Cellular Therapy Program [address] [phone] New Mckinney MD 10/14/2024 Refill [facility] Hematology/BMT and Cellular Therapy Program [address] [phone] New Mckinney MD 10/13/2024 Telephone [facility] Hematology/BMT and Cellular Therapy Program [address] [phone] Zonia Hoffman, SALES LEAD 10/13/2024 Travel 10/12/2024 Travel 10/11/2024 Travel 10/09/2024 Travel 10/08/2024 Travel 10/08/2024 Orders Only [facility] Hematology/BMT and Cellular Therapy Program 750 [facility], [address] [place] [phone] 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, door and arrival 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) 10/07/2024 Travel 09/30/2024 9:30 AM EDT Office Visit [facility] Hematology/BMT and Cellular Therapy Program 750 [facility], [address] [place] [phone] Zonia Hoffman APRN 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) 09/30/2024 9:00 AM EDT Clinical Support [facility] Hematology/BMT and Cellular Therapy Program 750 [facility], [address] [place] [phone] Jyoti Kemp 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) 09/30/2024 Telephone [facility] Hematology/BMT and Cellular Therapy Program 750 [facility], [address] [place] [phone] Zoraida Good RN 09/30/2024 Travel 09/29/2024 Travel 09/28/2024 Travel 09/27/2024 Travel 09/26/2024 Travel 09/25/2024 Travel 09/24/2024 Travel 09/23/2024 Travel 09/19/2024 12:00 PM EDT Procedure Visit [facility] Hematology/BMT and Cellular Therapy Program 750 [facility], [address] [place] [phone] Lexi Ferraro, SALES LEAD 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) 09/19/2024 9:30 AM EDT Clinical Support [facility] 800 [facility], [address] [place] [phone] 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) 09/19/2024 7:30 AM EDT Clinical Support [facility] Hematology/BMT and Cellular Therapy Program 750 [facility], [address] [place] [phone] 09/19/2024 Telephone [facility] Hematology/BMT and Cellular Therapy Program 750 [facility], [address] [place] [address] [place] [phone] Romana Richmond RN 09/19/2024 Orders Only [facility] Hematology/BMT and Cellular Therapy Program 750 [facility], [address] [place] [address] [place] [phone] 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 RN 09/19/2024 Travel from Last 3 Months Immunizations Immunization [...] Team ([facility] Contact Info) Description 12/30/2024 8:30 AM EDT Clinical Support [facility] Hematology/BMT and Cellular Therapy Program 750 [facility], [address] [place] [address] [place] [phone] 12/30/2024 9:00 AM EDT Office Visit [facility] Hematology/BMT and Cellular Therapy Program 750 [facility], [facility] [place] [phone] Bibiana Sepulveda, SALES LEAD 800 [facility] [address] [place] [phone] 12/30/2024 10:30 AM EDT Appointment [facility] 1 [address] [place] [address] 12/31/2024 3:00 PM EDT Appointment [facility] 1 [address] [place] [address] 01/01/2025 3:00 PM EDT Appointment [facility] [address] [place] [address] 01/02/2025 2:00 PM EDT Appointment [facility] 1 [address] [place] [address] 01/03/2025 2:00 PM EDT Appointment [facility] 1 [address] [place] [address] 01/04/2025 2:00 PM EDT Appointment [facility] [address] [place] [address] 01/05/2025 4:00 PM EDT Appointment [facility] 1 [address] [place] [address] Health Maintenance Due Date Last Done Comments [...] UKY-Zoster Vaccines (1 of 2) 05/16/2023 03/21/2023 UKY-Bone Density Scan 07/25/2024 07/25/2022, 023 [id number] Vaccine (4 - season) 2024 02/18/2021, 07/10/2020, 06/12/2020 UKY-Influenza Vaccine (#1) 12/15/202403/21, 03/21/2023, 02/10/2021, Additional [...] this topic Medical Devices Implanted Type Area Dish Stacker Device Identifier Shelf Expiration Date Model / Serial / Lot Port Clearvue Power 8fr - [id number] Implanted:Qty: 1 on 01/21/2024 by Ness Sargent MD at [facility] [employer]-[id number] / / Procedures Procedure Name Priority Date/Time [...] LAB HEMATOLOGY METHOD 09/30/2024 11:07 AM EDT [facility] RBC Count 1.91(L) 3.90 - 5.20 10*6/uL LAB HEMATOLOGY METHOD 09/30/2024 11:07 AM EDT [facility] HGB 7.7(L) 11.2 - 15.7 g/dL LAB HEMATOLOGY METHOD 09/30/2024 11:07 AM EDT [facility] HCT 22.8(L) 34.0 - 45.0 % LAB HEMATOLOGY METHOD 09/30/2024 11:07 AM EDT [facility] Platelet Count 17(LL) 155 - 369 10*3/uL LAB HEMATOLOGY METHOD 09/30/2024 11:07 AM EDT [facility] MCV 119(H) 79 - 98 fL LAB HEMATOLOGY METHOD 09/30/2024 11:07 AM EDT [facility] MCH 40.3(H) 26.0 - 32.0 pg LAB HEMATOLOGY METHOD 09/30/2024 11:07 AM EDT [facility] MCHC 33.8 30.7 - 35.5 g/dL LAB HEMATOLOGY METHOD 09/30/2024 11:07 AM EDT [facility] RDW 18.7(H) 11.5 - 14.5 % LAB HEMATOLOGY METHOD 09/30/2024 11:07 AM EDT [facility] MPV 11.1 8.8 - 12.5 fL LAB HEMATOLOGY METHOD 09/30/2024 11:07 AM EDT [facility] nRBC 0.0 <=0.0 per 100 WBCs LAB HEMATOLOGY METHOD 09/30/2024 11:07 AM EDT [facility] Differential Type Automated LAB HEMATOLOGY METHOD 09/30/2024 11:07 AM EDT [facility] Neutrophils % 65 % LAB HEMATOLOGY METHOD 09/30/2024 11:07 AM EDT [facility] Lymphocytes % 26 % LAB HEMATOLOGY METHOD 09/30/2024 11:07 AM EDT [facility] Monocytes % 7 % LAB HEMATOLOGY METHOD 09/30/2024 11:07 AM EDT [facility] Eosinophils % 1 % LAB HEMATOLOGY METHOD 09/30/2024 11:07 AM EDT [facility] Basophils % 1 % LAB HEMATOLOGY METHOD 09/30/2024 11:07 AM EDT [facility] Immature Granulocytes % 0 % LAB HEMATOLOGY METHOD 09/30/2024 11:07 AM EDT [facility] Neutrophils Absolute 2.17 1.60 - 6.10 10*3/uL LAB HEMATOLOGY METHOD 09/30/2024 11:07 AM EDT [facility] Lymphocytes Absolute 0.87(L) 1.20 - 3.90 10*3/uL LAB HEMATOLOGY METHOD 09/30/2024 11:07 AM EDT [facility] Monocytes Absolute 0.24(L) 0.30 - 0.90 10*3/uL LAB HEMATOLOGY METHOD 09/30/2024 11:07 AM EDT [facility] Eosinophils Absolute 0.03 0.00 - 0.50 10*3/uL LAB HEMATOLOGY METHOD 09/30/2024 11:07 AM EDT [facility] Basophils Absolute 0.02 0.00 - 0.10 10*3/uL LAB HEMATOLOGY METHOD 09/30/2024 11:07 AM EDT [facility] Immature Granulocytes Absolute 0.01 0.00 - 0.06 10*3/uL LAB HEMATOLOGY METHOD 09/30/2024 11:07 AM EDT [facility] Blood Venous blood specimen / Unknown (Port) Long-term Catheter / Unknown 09/30/2024 9:11 AM EDT 09/30/2024 9:34 AM EDT Narrative [facility] - 09/30/2024 11:07 AM EDT Therapeutic decision making should be based on absolute values, rather than percentages. Zonia Hoffman APRN LAB BLOOD ORDERABLES Final Res ult [facility] [address] [place] [address] * (ABNORMAL) Comprehensive Metabolic Panel, Plasma (09/30/2024 9:11 AM EDT) Glucose, Plasma 135(H) 74 - 99 mg/dL 09/30/2024 10:20 AM EDT [facility] BUN, Plasma 21 8 - 23 mg/dL 09/30/2024 10:20 AM EDT [facility] Creatinine, Plasma 1.00 0.60 - 1.10 mg/dL 09/30/2024 10:20 AM EDT [facility] BUN/Creatinine Ratio 21 09/30/2024 10:20 AM EDT [facility] Sodium, Plasma 137 136 - 145 mmol/L 09/30/2024 10:20 AM EDT [facility] Potassium, Plasma 3.8 3.6 - 4.9 mmol/L 09/30/2024 10:20 AM EDT [facility] Chloride, Plasma 107 97 - 107 mmol/L 09/30/2024 10:20 AM EDT [facility] CO2, Plasma 22 22 - 29 mmol/L 09/30/2024 10:20 AM EDT [facility] Anion Gap 8 6 - 16 mmol/L 09/30/2024 10:20 AM EDT [facility] Total Calcium, Plasma 9.8 8.9 - 10.2 mg/dL 09/30/2024 10:20 AM EDT [facility] Total Protein 5.9(L) 6.3 - 7.9 g/dL 09/30/2024 10:20 AM EDT [facility] Albumin, Plasma 3.8 3.5 - 5.2 g/dL 09/30/2024 10:20 AM EDT [facility] AST, Plasma 28 10 - 35 U/L 09/30/2024 10:20 AM EDT [facility] ALT, Plasma 14 10 - 35 U/L 09/30/2024 10:20 AM EDT [facility] Alkaline Phosphatase, Plasma 34(L) 46 - 142 U/L 09/30/2024 10:20 AM EDT [facility] Total Bilirubin, Plasma 0.3 0.2 - 1.1 mg/dL 09/30/2024 10:20 AM EDT [facility] eGFRcr 59.6 mL/min/1.7 3m*2 09/30/2024 10:20 AM EDT [facility] Comment:Reported eGFRcr in m L/min/1.73m2 is based the CKD-EPI 2020 equation that does not use a race coefficient. Blood Venous blood specimen / Unknown (Port) Long-term Catheter / Unknown 09/30/2024 9:11 AM EDT 09/30/2024 9:50 AM EDT Zonia Hoffman APRN LAB BLOOD ORDERABLES Final Res ult [facility] [address] [place] [address] * BIOPSY BONE MARROW (09/19/2024 12:00 PM [...] to surronding structures. Alternatives discussed: Delayed treatment [place] protocol: Procedure explained and questions answered to [...] (ABNORMAL) Platelet count (09/19/2024 10:04 AM EDT) [facility] Platelet Count 61(L) 155 - 369 10*3/uL LAB HEMATOLOGY METHOD 09/19/2024 10:19 AM EDT [facility] Blood Blood sample taken from central line / Unknown (Port) Long-term Catheter / Unknown 09/19/2024 10:04 AM EDT 09/19/2024 10:18 AM EDT New Mckinney MD LAB BLOOD ORDERABLES Final Re sult Performing Organization Address [facility] Co de Phone Number [facility] [address] [place] [address] * Transfuse platelets, Irradiated (09/19/2024 10:02 AM EDT) Lexi Ferraro APRN BLOOD TRANSFUSION ORDERABL ES Final Result * Prepare Leukocyte Reduced Platelets (09/19/2024 9:08 AM EDT) [facility] Product Code [id number] BLOO D BANK Dispense Status Transfused BLOOD BANK Blood Expiration Date [id number] BLOOD BANK Unit Number [id number] CH B LOOD BANK Product Blood Type 6200 BLOOD BANK Blood Type A+ BLOOD BANK us Provider Not In System BLOOD BANK PRODUCT ORD ERABLES Final Result Performing Organization Address [facility] Co de Phone Number BLOOD BANK [address] [place] [address], * Myeloid Focused Panel, 50 gene (09/19/2024 7:29 AM EDT) [facility] Interpretation The following two (2) genes, TP53 and DNMT3A, with persistent variants have been detected in this bone marrow specimen. The variant, p.[id number], in TP53 gene and the variant, p.[id number], in the RUNX 1 gene are not detectable at current cutoff and coverage established in this lab. Gene: TP53 Mutation: c.814G>A; p.Ena686Dok Allele Frequency (%): 37% (45% Dec 2023) ID: [id number] Gene: DNMT3A Mutation: c.1522delC; p.[id number] 3 Allele Frequency (%): 36% (48% Dec 2023) Additional Details on Mutation Identified: Gene Transcript Genome Chrom Coordinate RefVar DNMT3A [id number] Hg19 2 [id number] delC TP53 [id number] Hg19 17 [id number] G>A 09/29/2024 4:[address] [facility] Methodology The following 50 [...] malignancies. Samples are then sequenced on the [employer] NextSeq 2000 ([employer], [place]). A custom bioinformatics pipeline aligns [...] of hematologic malignancies. 09/29/2024 4:[address] [facility] Disclaimer This test was developed and its performance characteristics determined by the Clinical Molecular and Genomic Pathology Laboratory at the [facility]. It has not been cleared [...] clinical laboratory testing. 09/29/2024 4:[address] [facility] Pathologist Signature Reviewed by: Corey Tejada 09/29/2024 4:[address] [facility] Bone Marrow Specimen from bone marrow obtained by aspiration / Unknown Non-blood Collection / Unknown 09/19/2024 7:29 AM EDT 09/19/2024 12:03 PM EDT us New Mckinney MD LAB MOLECULAR DIAGNOSTICS ORD ERABLES Final Result Performing Organization Address City/State/[facility] Co de Phone Number [facility] [address] * Chromosome Karyotype, Oncology (09/19/2024 7:29 [...] [phone] 09/24/2024 2:37 PM EDT [facility] Pathologist Signature Reviewed by: Corey Tejada 09/24/2024 2:37 PM EDT [facility] Bone Marrow Non-blood Collection / Unknown 09/19/2024 7:29 AM EDT 09/19/2024 12:35 PM EDT us New Mckinney MD LAB CYTOGENETICS ORDERABLES F inal Result [facility] [address] [place] [address] * Leukemia/Lymphoma - Immunophenotyping by Flow Cytometry (09/19/2024 7:29 AM EDT) Clinical Indication AML 09/22/2024 10:29 AM EDT [facility] Flow Cytometry Interpretation A. BONE MARROW FOR FLOW CYTOMETRY: - MIXED MARROW ELEMENTS WITH NO EVIDENCE OF INCREASED BLASTS OR ABNORMAL LYMPHOID POPULATIONS, SEE COMMENT. 09/22/2024 10:29 AM EDT [facility] Comments CD45/side scatter analysis shows a pattern [...] chains 09/22/2024 10:29 AM EDT [facility] Disclaimer This test was developed and its performance characteristics determined by the Immuno-Molecular Pathology Laboratory at the [facility]. It has not been cleared [...] Final Result [facility] [address] [place] [address] * Bone marrow exam (09/19/2024 7:29 AM EDT) Case Report Bone Marrow Case: [id number] Authorizing Provider: New Mckinney MD Collected: 09/19/2024 0729 Ordering Location: [facility] Hematology/BMT and Received: 09/19/2024 1216 [...] in this bone marrow specimen. The variant, p.Qqq141Vne, in TP53 gene and the variant, p.Wuw457avl, in the RUNX 1 gene are not detectable at current cutoff and coverage established in this lab. Gene: TP53 Mutation: c.814G>A; p.Gnf347Var Allele Frequency (%): 37% (45% Dec 2023) ID: [id number] Gene: DNMT3A Mutation: c.1522delC; p.[id number] 43 Allele Frequency (%): 36% (48% Dec [...] Plasma cells 0-4 4 Other 3:15 PM [facility] Bone Marrow Aspirate and Biopsy The bone [...] identified. Bone trabeculae are unremarkable. 3:15 PM [facility] Special and Immunohistochemical Stains Special Stain: A1-1 Vazquez-Giemsa A1-2 Vazquez-Giemsa A1-3 Vazquez-Giemsa C1-1 Vazquez-Giemsa IHC: B1-2 CD34 All controls show appropriate reactivity. All immunohistochemis try, in situ hybridization, and histochemical tests were developed by and are performed at the [facility], [address] [place] [address]. All tests reported here, except those addressing [...] negativity on decalcified specimens. 5 3:15 PM [facility] Flow Cytometry Interpretation MIXED MARROW ELEMENTS WITH NO EVIDENCE OF INCREASED BLASTS OR ABNORMAL LYMPHOID POPULATIONS ([id number]). 3:15 PM [facility] CYTOGENETICS/MOLECULA R INTERPRETATION Correlation with cytogenetic/molec ular analysis is suggested. 5 3:15 PM [facility] Gross Description B. RIGHT A single specimen is received in formalin labeled bone marrow biopsy right posterior iliac crest and consists of 2 piece(s) of red/white tissue measuring 2.1/0.3 cm in length 0.2 cm in diameter. The specimen is submitted in to Histology for decalcification and routine processing. Cold Time: <1m 3:15 PM EDT [facility] Note: A resident [...] ed Result - Final Performing Organization Address [facility]/ZIP Co de Phone Number [facility] [address] [place] [address] * Hepatitis C Antibody w/Reflex to HCV Quant PCR (01/07/2024 8:42 AM EDT) Hepatitis C Antibody Negative Negative 01/07/2024 10:13 AM EDT [facility] Blood Venous blood specimen / Unknown Venipuncture / Unknown 01/07/2024 8:42 AM EDT 01/07/2024 9:25 AM EDT New Mckinney MD LAB BLOOD ORDERABLES Final Re sult Performing Organization Address City/[facility]/ZIP Co de Phone Number [facility] [address] [place] [address] from Last 3 Months or Most Recently Relevant to Health Maintenance [place] [address] ANTHEM Care Teams Director Of Development Relationship Specialty Start Date End Date Jevon Vazquez MD [address] [place] [address] #1 [address]1 [place] [phone] PCP - General 03/23/22
--- OUTSIDE RECORDS SUMMARY | 2024-12-19 09:04 | XMS_ITS | Encounter Summary ---
Author Organization Healthcare Address [address] [place] [address] Care Team Providers Care Vtc Technician Name Role Phone Jevon Vazquez MD Primary Care Provider [phone] Encounter Details Date Type Department Care Team [...] Hematology/BMT and Cellular Therapy Program [address] [phone] 12/30/2024 9:00 AM EDT Office Visit [facility] Hematology/BMT and Cellular Therapy Program [address] [phone] Bibiana Sepulveda, ELECTROMECHANISMS DESIGN DRAFTER 800 [facility] [address] [place] [phone] 12/30/2024 10:30 AM EDT Appointment [facility] [address] [place] [address] 12/31/2024 3:00 PM EDT Appointment [facility] 1 [address] [place] [address] 01/01/2025 3:00 PM EDT Appointment [facility] 1 [address] [place] [address] 01/02/2025 2:00 PM EDT Appointment [facility] [address] [place] [address] 01/03/2025 2:00 PM EDT Appointment [facility] [address] [place] [address] 01/04/2025 2:00 PM EDT Appointment [facility] [address] [place] [address] 01/05/2025 4:00 PM EDT Appointment [facility] [address] [place] [address] documented as of this encounter Visit Diagnoses Not on filedocumented in this encounter Additional Health Concerns Assessment Noted Time A fall risk assessment has been complete d for the patient 09/30/2024 9:33 AM EDT A Body Mass Index follow-up plan has been documented for the patient 05/28/2024 1:52 PM EST documented as of this encounter Care Teams Vtc Technician Relationship Specialty Start Date End Date Jevon Vazquez MD [address] [place] [address] [address]1 [address] [place] [address] PCP - General 03/23/22 documented as of this encounter
--- OUTSIDE RECORDS SUMMARY | 2024-12-19 09:04 | XMS_ITS | Clinical Summary ---
Author Organization [facility] Address [address] [place] [address] Phone Care Team Providers Care Title Agent Name Role Phone Jevon Vazquez MD Primary Care Provider [phone] Allergies Active Allergy Reactions Criticality Noted Date [...] L4-5 LAMINECTOMY; Surgeon: Ivan Bartholomew MD; Location: [facility] MAIN OR; Service: Spine [...] 5.6 % 11/14/2022 2:57 PM EDT PREFERRED [email or web address], [facility] Est. Avg Glucose 148 mg/dL 11/14/2022 2:57 PM EDT [facility] [place], [facility] Blood VENOUS BLOOD / Unknown Venipuncture / Unknown 11/11/2022 3:46 PM EDT 11/11/2022 3:55 PM EDT Narrative [facility] - 11/14/2022 2:57 [...] ORDERABLES Final R esult [facility] , [address] [place] [id number] * (ABNORMAL) BASIC METABOLIC PANEL (11/11/2022 3:46 PM EDT) Sodium 136 136 - 145 mmol/L 11/11/2022 4:11 PM EDT [facility] Potassium 3.8 3.5 - 5.0 mmol/L 11/11/2022 4:11 PM EDT [facility] Chloride 102 98 - 107 mmol/L 11/11/2022 4:11 PM EDT [facility] Total CO2 24 22 - 29 mmol/L 11/11/2022 4:11 PM EDT [facility] Anion Gap 10 7 - 16 mmol/L 11/11/2022 4:11 PM EDT [facility] Calcium 10.1 8.8 - 10.4 mg/dL 11/11/2022 4:11 PM EDT [facility] Glucose Lvl 147(H) 82 - 100 mg/dL 11/11/2022 4:11 PM EDT [facility] BUN 15 8 - 23 mg/dL 11/11/2022 4:11 PM EDT [facility] Creatinine 0.82 0.51 - 1.30 mg/dL 11/11/2022 4:11 PM EDT [facility] eGFR (CKD-EPIcr 2020) 76 >=60 mL/min/1.7 3 m2 11/11/2022 4:11 PM EDT [facility] Comment:Estimated GFR was ca lculated using the CKD-EPIcr (2020) equation refit without race. The equation is recommended by the National Kidney Foundation - [place] [employer] of Nephrology Task Force. Blood VENOUS BLOOD / Unknown Venipuncture / Unknown 11/11/2022 3:46 PM EDT 11/11/2022 3:54 PM EDT us Leona Hanna DO CHEMISTRY ORDERABLES Final Res ult [facility] [address] [place] [address] * DX BONE DENSITY AXIAL SKELETON (07/25/2022 9:14 AM EDT) Anatomical Region Laterality Modality Dexa Scan 07/25/2022 Narrative 07/25/2022 3:45 PM EDT Indication: The patient is a female age 65 or older who requires a bone density assessment. Study was performed on [email or web address] 5. Bone Density: Region BMD T-score Z-score [...] Insurance [place]ICARE [place] [address] [place] [address] MEDICARE SUPPLEMENT MEDICARE [place] PART A AND B Member Subscriber Plan / Payer (Ef fective 2016-Present) Name:Ashly Hernández Member ID:[id number] Relation to Subscriber:Self Name:Ashly Hernández Subscriber ID:[id number] Payer ID:Not on file Group ID:Not on file Type:Not on file Address: [address] MEDICARE SUPPLEMENT MEDICARE [place] PART A & B [place]ICARE [place] PART A AND B Member Subscriber Plan / Payer (Ef fective 2016-Present) Name:Ashly Hernández Member ID:[id number] Relation to Subscriber:Self Name:Ashly Hernández Subscriber ID:[id number] Payer ID:Not on file Group ID:Not on file Type:Not on file Address: [address] MEDICARE SUPPLEMENT [employer] MEDICARE [place] PART A AND B [address] MEDICARE SUPPLEMENT Advance Directives For more information, please contact: [phone] * Full Code (Latest Code Status on File) Date Activated Date Inactivated Comments 11/14/2022 6:53 PM 11/16/2022 7:37 PM * Full Code Date Activated Date Inactivated Comments 11/12/2022 5:17 AM 11/14/2022 6:47 PM Care Teams Title Agent Relationship Specialty Start Date End Date Jevon Vazquez MD [address] [place] [address] PCP - General Family Medicine 11/10/22
--- OUTSIDE RECORDS SUMMARY | 2024-12-19 09:04 | XMS_ITS | Encounter Summary ---
Author Organization Healthcare Address [address] [id number] Care Team Providers Care Personalized Living Manager Name Role Phone Jevon Vazquez MD Primary Care Provider [phone] Encounter Details Date Type Department Care Team ([facility] Contact Info) Description 11/13/2024 Orders Only [facility] Hematology/BMT and Cellular Therapy Program [address] [address] 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, RN [facility] Acute myeloid leukemia [...] Hematology/BMT and Cellular Therapy Program [address] [address] 12/30/2024 9:00 AM EDT Office Visit [facility] Hematology/BMT and Cellular Therapy Program [address] [address] Bibiana Sepulveda, WELDER FITTER 800 [facility] [address] [place] [address] 12/30/2024 10:30 AM EDT [facility]ointment [facility] [address] [place] [address] 12/31/2024 3:00 PM EDT Appointment [facility] 1 [address] [place] [address] 01/01/2025 3:00 PM EDT Appointment [facility] [address] [place] [address] 01/02/2025 2:00 PM EDT Appointment [facility] [address] [place] [address] 01/03/2025 2:00 PM EDT [facility]ointment [facility] [address] [place] [address] 01/04/2025 2:00 PM EDT [facility]ointment [facility] [address] [place] [address] 01/05/2025 4:00 PM EDT Appointment [facility] [address] [place] [address] Scheduled Orders Name Type Priority Associated Diagnoses [...] documented as of this encounter Care Teams Personalized Living Manager Relationship Specialty Start Date End Date Jevon Vazquez MD [address] [place] [address] [address]1 [address] [place] [address] PCP - General 03/23/22 documented as of this encounter
[2024-12-19 09:18] LABS: Hematocrit 27.1 % (37.0-47.0); Hemoglobin 9.3 g/dL (12.2-16.2); Immature Granulocytes % 0 %; Mean Corpuscular HGB Conc 34.3 g/dL (31.8-35.4); Mean Corpuscular Hemoglobin 32.9 pg (27.0-31.2); Mean Corpuscular Volume 95.8 fl (81-99); Nucleated Red Blood Cells % 0 %; Red Blood Count 2.83 M/mm3 (4.20-5.40); Red Cell Distribution Width-SD 72.2 fL
[2024-12-19 09:19] LABS: Platelet Count 7 K/mm3 (142-424); White Blood Count 1.8 K/mm3 (4.8-10.8)
[2024-12-19 09:25] LABS: Alanine Aminotransferase 13 U/L (12-78); Albumin Level 3.7 g/dl (3.5-5.0); Albumin/Globulin Ratio 1.6 (1.1-1.8); Alkaline Phosphatase 41 U/L (38-126); Anion Gap 10.9 mEq/L (5-15); Aspartate Amino Transferase 35 U/L (14-36); Bilirubin,Total 0.5 mg/dl (0.2-1.3); Blood Urea Nitrogen 29 mg/dl (7-17); Calcium 9.5 mg/dl (8.4-10.2); Carbon Dioxide 24 mmol/L (22.0-30.0); Chloride 106 mmol/L (98-107); Creatinine,Serum 1.20 mg/dl (0.52-1.04); Estimated Glomerular Filt Rate 44 ml/min (>60); GFR (African American) 53 ML/MIN (>60); Globulin 2.3 g/dL (1.3-3.2); Glucose 128 mg/dl (74-100); Potassium 3.9 mmoL/L (3.5-5.1); Sodium 137 mmol/L (136-145); Total Protein,Serum 6.0 g/dl (6.3-8.2)
[2024-12-19 10:17] LABS: RBC Morphology Normal; Total Cells Counted 25
[2024-12-19] MEDS: 0.9 % SODIUM CHLORIDE 250 ML 25 ML IV (13:18)
[2024-12-19] MEDS: SODIUM CHLORIDE 0.9% 10ML FLUSH SYRINGE 10 ML IV (13:25)
== END 2024-12-19 13:55 | disposition home or self-care (01) ==
LOC: INF 08:59
PROVIDERS: PCP Family Medicine; Visit Provider Internal Medicine Medical Oncology
DX: C92.00 Acute myeloblastic leukemia, not having achieved remission (principal)
CPT/HCPCS: 36430; 36591; 80053; 85007; 85025; 86900; 86901; J1642; J7050; P9034

== ENCOUNTER 2024-12-22 08:55 | Outpatient (CLI) | payer MEDICARE, BC, SELFPAY ==
--- OUTSIDE RECORDS SUMMARY | 2024-12-22 09:08 | XMS_ITS | Encounter Summary ---
Author Organization Healthcare Address [address] [place] [address] Care Team Providers Care Anti Tank Missileman Name Role Phone Jevon Vazquez MD Primary Care Provider [phone] Encounter Details Date Type Department Care Team [...] Hematology/BMT and Cellular Therapy Program [address] [address] 12/30/2024 9:00 AM EDT Office Visit [facility] Hematology/BMT and Cellular Therapy Program [address] [address] Bibiana Sepulveda, WEIGHER ALLOY 800 [facility] [address] [place] [address] 12/30/2024 10:30 AM EDT Appointment [facility] 1 [address] [place] [address] 12/31/2024 3:00 PM EDT Appointment [facility] 1 [address] [place] [address] 01/01/2025 3:00 PM EDT Appointment [facility] 1 [address] [place] [address] 01/02/2025 2:00 PM EDT Appointment [facility] 1 [address] [place] [address] 01/03/2025 2:00 PM EDT Appointment [facility] 1 [address] [place] [address] 01/04/2025 2:00 PM EDT Appointment [facility] 1 [address] [place] [address] 01/05/2025 4:00 PM EDT Appointment [facility] 1 [address] [place] [address] documented as of this encounter Visit Diagnoses Not on filedocumented in this encounter Additional Health Concerns Assessment Noted Time A fall risk assessment has been complete d for the patient 09/30/2024 9:33 AM EDT A Body Mass Index follow-up plan has been documented for the patient 05/28/2024 1:52 PM EST documented as of this encounter Care Teams Anti Tank Missileman Relationship Specialty Start Date End Date Jevon Vazquez MD [address] [place] [address] [address]1 [address]1 [place] [address] PCP - General 03/23/22 documented as of this encounter
--- OUTSIDE RECORDS SUMMARY | 2024-12-22 09:08 | XMS_ITS | Encounter Summary ---
Author Organization Healthcare Address [address] [place] [address] Care Team Providers Care Imager Name Role Phone Jevon Vazquez MD Primary Care Provider [phone] Encounter Details Date Type Department Care Team [...] Hematology/BMT and Cellular Therapy Program [address] [address] 12/30/2024 9:00 AM EDT Office Visit [facility] Hematology/BMT and Cellular Therapy Program [address] [address] Bibiana Sepulveda, CUT OUT MACHINE OPERATOR 800 [facility] [address] [place] [address] 12/30/2024 10:30 AM EDT Appointment [facility] 1 [address] [place] [address] 12/31/2024 3:00 PM EDT Appointment [facility] 1 [address] [place] [address] 01/01/2025 3:00 PM EDT Appointment [facility] 1 [address] [place] [address] 01/02/2025 2:00 PM EDT Appointment [facility] 1 [address] [place] [address] 01/03/2025 2:00 PM EDT [facility]ointment [facility] 1 [address] [place] [address] 01/04/2025 2:00 PM EDT [facility]ointment [facility] 1 [address] [place] [address] 01/05/2025 4:00 PM EDT Appointment [facility] 1 [address] [place] [address] documented as of this encounter Visit Diagnoses Not on filedocumented in this encounter Additional Health Concerns Assessment Noted Time A fall risk assessment has been complete d for the patient 09/30/2024 9:33 AM EDT A Body Mass Index follow-up plan has been documented for the patient 05/28/2024 1:52 PM EST documented as of this encounter Care Teams Imager Relationship Specialty Start Date End Date Jevon Vazquez MD [address] [place] [address] [address]1 [address]1 [place] [address] PCP - General 03/23/22 documented as of this encounter
--- OUTSIDE RECORDS SUMMARY | 2024-12-22 09:08 | XMS_ITS | Encounter Summary ---
Author Organization Healthcare Address [address] [place] [address] Care Team Providers Care Acute Care Registered Nurse Name Role Phone Jevon Vazquez MD Primary Care Provider [phone] Encounter Details Date Type Department Care Team [...] Hematology/BMT and Cellular Therapy Program [address] [address] 12/30/2024 9:00 AM EDT Office Visit [facility] Hematology/BMT and Cellular Therapy Program [address] [address] Bibiana Sepulveda, FRUIT FARMER 800 [facility] [address] [place] [address] 12/30/2024 10:30 AM EDT Appointment [facility] 1 [address] [place] [address] 12/31/2024 3:00 PM EDT Appointment [facility] 1 [address] [place] [address] 01/01/2025 3:00 PM EDT Appointment [facility] 1 [address] [place] [address] 01/02/2025 2:00 PM EDT Appointment [facility] 1 [address] [place] [address] 01/03/2025 2:00 PM EDT Appointment [facility] 1 [address] [place] [address] 01/04/2025 2:00 PM EDT Appointment [facility] 1 [address] [place] [address] 01/05/2025 4:00 PM EDT Appointment [facility] 1 [address] [place] [address] documented as of this encounter Visit Diagnoses Not on filedocumented in this encounter Additional Health Concerns Assessment Noted Time A fall risk assessment has been complete d for the patient 09/30/2024 9:33 AM EDT A Body Mass Index follow-up plan has been documented for the patient 05/28/2024 1:52 PM EST documented as of this encounter Care Teams Acute Care Registered Nurse Relationship Specialty Start Date End Date Jevon Vazquez MD [address] [place] [address] [address]1 [address]1 [place] [address] PCP - General 03/23/22 documented as of this encounter
--- OUTSIDE RECORDS SUMMARY | 2024-12-22 09:08 | XMS_ITS ---
Author Organization [facility] Address [address] [place] [address] Care Team Providers Care Federal District Law Clerk Name Role Phone Jevon Vazquez MD Primary Care Provider [phone] Active Problems Problem Noted Date Diagnosed Date [...]
--- OUTSIDE RECORDS SUMMARY | 2024-12-22 09:08 | XMS_ITS | Encounter Summary ---
Author Organization Healthcare Address [address] [place] [address] Care Team Providers Care Case Operator Name Role Phone Jevon Vazquez MD [...] Hematology/BMT and Cellular Therapy Program [address] [address] 12/30/2024 9:00 AM EDT Office Visit [facility] Hematology/BMT and Cellular Therapy Program [address] [address] Bibiana Speulveda, LEAD IOS DEVELOPER 800 [facility] [address] [place] [address] 12/30/2024 10:30 AM EDT Appointment [facility] 1 [address] [place] [address] 12/31/2024 3:00 PM EDT Appointment [facility] 1 [address] [place] [address] 01/01/2025 3:00 PM EDT Appointment [facility] 1 [address] [place] [address] 01/02/2025 2:00 PM EDT Appointment [facility] 1 [address] [place] [address] 01/03/2025 2:00 PM EDT Appointment [facility] 1 [address] [place] [address] 01/04/2025 2:00 PM EDT Appointment [facility] 1 [address] [place] [address] 01/05/2025 4:00 PM EDT Appointment [facility] 1 [address] [place] [address] documented as of this encounter Visit Diagnoses Not on filedocumented in this encounter Additional Health Concerns Assessment Noted Time A fall risk assessment has been complete d for the patient 09/30/2024 9:33 AM EDT A Body Mass Index follow-up plan has been documented for the patient 05/28/2024 1:52 PM EST documented as of this encounter Care Teams Case Operator Relationship Specialty Start Date End Date Jevon Vazquez MD [address] [place] [address] [address]1 [address]1 [place] [address] PCP - General 03/23/22 documented as of this encounter
--- OUTSIDE RECORDS SUMMARY | 2024-12-22 09:08 | XMS_ITS | Encounter Summary ---
Author Organization Healthcare Address [address] [place] [address] Care Team Providers Care Senior Logistics Manager Name Role Phone Jevon Vazquez MD Primary Care Provider [phone] Encounter Details Date Type Department Care Team [...] Hematology/BMT and Cellular Therapy Program [address] [address] 12/30/2024 9:00 AM EDT Office Visit [facility] Hematology/BMT and Cellular Therapy Program [address] [address] Bibiana Sepulveda, SOLAR PROCESS ENGINEER 800 [facility] [address] [place] [address] 12/30/2024 10:30 AM EDT Appointment [facility] 1 [address] [place] [address] 12/31/2024 3:00 PM EDT Appointment [facility] 1 [address] [place] [address] 01/01/2025 3:00 PM EDT Appointment [facility] 1 [address] [place] [address] 01/02/2025 2:00 PM EDT Appointment [facility] 1 [address] [place] [address] 01/03/2025 2:00 PM EDT Appointment [facility] 1 [address] [place] [address] 01/04/2025 2:00 PM EDT Appointment [facility] 1 [address] [place] [address] 01/05/2025 4:00 PM EDT Appointment [facility] 1 [address] [place] [address] documented as of this encounter Visit Diagnoses Not on filedocumented in this encounter Additional Health Concerns Assessment Noted Time A fall risk assessment has been complete d for the patient 09/30/2024 9:33 AM EDT A Body Mass Index follow-up plan has been documented for the patient 05/28/2024 1:52 PM EST documented as of this encounter Care Teams Senior Logistics Manager Relationship Specialty Start Date End Date Jevon Vazquez MD [address] [place] [address] #1 [address]1 [place] [address] PCP - General 03/23/22 documented as of this encounter
--- OUTSIDE RECORDS SUMMARY | 2024-12-22 09:08 | XMS_ITS | Encounter Summary ---
Author Organization [facility] Address [address] [place] [address] Care Team Providers Care Remedy Developer Name Role Phone Jevon Vazquez MD Primary Care Provider [phone] Encounter Details Date Type Department Care Team ([facility] Contact Info) Description 10/29/2024 Refill [facility] Hematology/BMT and Cellular Therapy Program [address] [address] Zonia Hoffman, WIRELESS COMMUNICATIONS ENGINEER 800 [facility] [address] [place] [address] Acute myeloid leukemia not having achieved remission [...] Team ([facility] Contact Info) Description 12/30/2024 8:30 AM EDT Clinical Support [facility] Hematology/BMT and Cellular Therapy Program [address] [address] 12/30/2024 9:00 AM EDT Office Visit [facility] Hematology/BMT and Cellular Therapy Program [address] [place] [address] Bibiana Sepulveda, WIRELESS COMMUNICATIONS ENGINEER [address] [facility] [address] [place] [address] 12/30/2024 10:30 AM EDT Appointment [facility] 1 [address] [place] [address] 12/31/2024 3:00 PM EDT Appointment [facility] 1 [address] [place] [address] 01/01/2025 3:00 PM EDT Appointment [facility] 1 [address] [place] [address] 01/02/2025 2:00 PM EDT Appointment [facility] 1 [address] [place] [address] 01/03/2025 2:00 PM EDT Appointment [facility] 1 [address] [place] [address] 01/04/2025 2:00 PM EDT Appointment [facility] 1 [address] [place] [address] 01/05/2025 4:00 PM EDT Appointment [facility] 1 [address] [place] [address] documented as of this encounter Visit Diagnoses [...] documented as of this encounter Care Teams Remedy Developer Relationship Specialty Start Date End Date Jevon Vazquez MD [address] [place] [address] #1 [address]1 [place] [address] PCP - General 03/23/22 documented as of this encounter
--- OUTSIDE RECORDS SUMMARY | 2024-12-22 09:08 | XMS_ITS | Encounter Summary ---
Author Organization Healthcare Address [address] [place] [address] Care Team Providers Care Stockroom Selector Name Role Phone Jevon Vazquez MD Primary Care Provider [phone] Encounter Details Date Type Department Care Team [...] Hematology/BMT and Cellular Therapy Program [address] [address] 12/30/2024 9:00 AM EDT Office Visit [facility] Hematology/BMT and Cellular Therapy Program [address] [address] Bibiana Sepulveda, REBAR BENDER 800 [facility] [address] [place] [address] 12/30/2024 10:30 AM EDT Appointment [facility] 1 [address] [place] [address] 12/31/2024 3:00 PM EDT Appointment [facility] 1 [address] [place] [address] 01/01/2025 3:00 PM EDT Appointment [facility] 1 [address] [place] [address] 01/02/2025 2:00 PM EDT Appointment [facility] 1 [address] [place] [address] 01/03/2025 2:00 PM EDT Appointment [facility] 1 [address] [place] [address] 01/04/2025 2:00 PM EDT Appointment [facility] 1 [address] [place] [address] 01/05/2025 4:00 PM EDT Appointment [facility] 1 [address] [place] [address] documented as of this encounter Visit Diagnoses Not on filedocumented in this encounter Additional Health Concerns Assessment Noted Time A fall risk assessment has been complete d for the patient 09/30/2024 9:33 AM EDT A Body Mass Index follow-up plan has been documented for the patient 05/28/2024 1:52 PM EST documented as of this encounter Care Teams Stockroom Selector Relationship Specialty Start Date End Date Jevon Vazquez MD [address] [place] [address] #1 [address]1 [place] [address] PCP - General 03/23/22 documented as of this encounter
--- OUTSIDE RECORDS SUMMARY | 2024-12-22 09:08 | XMS_ITS | Encounter Summary ---
Author Organization Healthcare Address [address] [place] [address] Care Team Providers Care Prorate Clerk Name Role Phone Jevon Vazquez MD Primary Care Provider [phone] Encounter Details Date Type Department Care Team [...] Hematology/BMT and Cellular Therapy Program [address] [address] 12/30/2024 9:00 AM EDT Office Visit [facility] Hematology/BMT and Cellular Therapy Program [address] [address] Bibiana Sepulveda, BULLDOZER/LOADER/COMPACTOR/SCRAPER 800 [facility] [address] [place] [address] 12/30/2024 10:30 AM EDT Appointment [facility] 1 [address] [place] [address] 12/31/2024 3:00 PM EDT Appointment [facility] 1 [address] [place] [address] 01/01/2025 3:00 PM EDT Appointment [facility] 1 [address] [place] [address] 01/02/2025 2:00 PM EDT Appointment [facility] 1 [address] [place] [address] 01/03/2025 2:00 PM EDT Appointment [facility] 1 [address] [place] [address] 01/04/2025 2:00 PM EDT Appointment [facility] 1 [address] [place] [address] 01/05/2025 4:00 PM EDT Appointment [facility] 1 [address] [place] [address] documented as of this encounter Visit Diagnoses Not on filedocumented in this encounter Additional Health Concerns Assessment Noted Time A fall risk assessment has been complete d for the patient 09/30/2024 9:33 AM EDT A Body Mass Index follow-up plan has been documented for the patient 05/28/2024 1:52 PM EST documented as of this encounter Care Teams Prorate Clerk Relationship Specialty Start Date End Date Jevon Vazquez MD [address] [place] [address] #1 [address]1 [place] [address] PCP - General 03/23/22 documented as of this encounter
--- OUTSIDE RECORDS SUMMARY | 2024-12-22 09:08 | XMS_ITS | Encounter Summary ---
Author Organization Healthcare Address [address] [place] [address] Care Team Providers Care Vest Busheler Name Role Phone Jevon Vazquez MD Primary Care Provider [phone] Encounter Details Date Type Department Care Team [...] Hematology/BMT and Cellular Therapy Program [address] [address] 12/30/2024 9:00 AM EDT Office Visit [facility] Hematology/BMT and Cellular Therapy Program [address] [address] Bibiana Sepulveda, CREDIT RISK ASSOCIATE 800 [facility] [address] [place] [address] 12/30/2024 10:30 AM EDT Appointment [facility] 1 [address] [place] [address] 12/31/2024 3:00 PM EDT Appointment [facility] 1 [address] [place] [address] 01/01/2025 3:00 PM EDT Appointment [facility] 1 [address] [place] [address] 01/02/2025 2:00 PM EDT Appointment [facility] 1 [address] [place] [address] 01/03/2025 2:00 PM EDT Appointment [facility] 1 [address] [place] [address] 01/04/2025 2:00 PM EDT Appointment [facility] 1 [address] [place] [address] 01/05/2025 4:00 PM EDT Appointment [facility] 1 [address] [place] [address] documented as of this encounter Visit Diagnoses Not on filedocumented in this encounter Additional Health Concerns Assessment Noted Time A fall risk assessment has been complete d for the patient 09/30/2024 9:33 AM EDT A Body Mass Index follow-up plan has been documented for the patient 05/28/2024 1:52 PM EST documented as of this encounter Care Teams Vest Busheler Relationship Specialty Start Date End Date Jevon Vazquez MD [address] [place] [address] #1 [address]1 [place] [address] PCP - General 03/23/22 documented as of this encounter
--- OUTSIDE RECORDS SUMMARY | 2024-12-22 09:08 | XMS_ITS | Encounter Summary ---
Author Organization Healthcare Address [address] [place] [address] Care Team Providers Care [employer] Advisor Name Role Phone Jevon Vazquez MD Primary Care Provider [phone] Encounter Details Date Type Department Care Team ([facility] Contact Info) Description 12/11/2024 Telephone P[facility] CC Hematology/BMT and Cellular Therapy Program [address] [phone] New Mckinney MD 800 [facility] [address] [place] [phone] Social History Tobacco Use Types Packs/Day Years [...] PM EDT Rn uploaded recent labs to [facility] and rescheduled appointments to 12/30. RN returned call to patient with updated plan of care and schedule. documented in this encounter Plan of Treatment Upcoming Encounters Date Type Department Care Team (Late Contact Info) Description 12/30/2024 8:30 AM EDT Clinical Support PAV Hematology/BMT and Cellular Therapy Program [address] [place] [address] 12/30/2024 9:00 AM EDT Office Visit PAV Hematology/BMT and Cellular Therapy Program [address] [place] [address] Bibiana Sepulveda, PROFESSIONAL NURSE 800 [facility] [address] [place] [phone] 12/30/2024 10:30 AM EDT Appointment [facility] 1 [address] [place] [address] 12/31/2024 3:00 PM EDT Appointment [facility] 1 [address] [place] [address] 01/01/2025 3:00 PM EDT Appointment [facility] 1 [address] [place] [address] 01/02/2025 2:00 PM EDT Appointment [facility] 1 [address] [place] [address] 01/03/2025 2:00 PM EDT Appointment [facility] 1 [address] [place] [address] 01/04/2025 2:00 PM EDT Appointment [facility] 1 [address] [place] [address] 01/05/2025 4:00 PM EDT Appointment [facility] 1 [address] [place] [address] documented as of this encounter Visit Diagnoses Not on filedocumented in this encounter Additional Health Concerns Assessment Noted Time A fall risk assessment has been complete d for the patient 09/30/2024 9:33 AM EDT A Body Mass Index follow-up plan has been documented for the patient 05/28/2024 1:52 PM EST documented as of this encounter Care Teams [employer] Advisor Relationship Specialty Start Date End Date Jevon Vazquez MD [address] [place] [address] #1 #1 [place] [address] PCP - General 03/23/22 documented as of this encounter
--- OUTSIDE RECORDS SUMMARY | 2024-12-22 09:08 | XMS_ITS | Encounter Summary ---
Author Organization [facility] Address [address] [place] [address] Care Team Providers Care Laser Operator Name Role Phone Jevon Vazquez MD Primary Care Provider [phone] Reason for Visit * Reason Comments Med Refill Encounter Details Date Type Department Care Team ([facility] Contact Info) Description 01/30/2024 Refill P[facility] CC Hematology/BMT and Cellular Therapy Program [address] [phone] New Mckinney MD 800 [facility] [address] [place] [phone] Social History Tobacco Use Types Packs/Day Years [...] [facility] Contact Info) Description 12/30/2024 8:30 AM EDT Clinical Support P[facility] CC Hematology/BMT and Cellular Therapy Program [address] [place] [address] 12/30/2024 9:00 AM EDT Office Visit [facility] CC Hematology/BMT and Cellular Therapy Program [address] [phone] Bibiana Sepulveda, PRODUCT DISTRIBUTION SPECIALIST [address] [facility] [address] [place] [address] 12/30/2024 10:30 AM EDT Appointment [facility] 1 [address] [place] [address] 12/31/2024 3:00 PM EDT Appointment [facility] 1 [address] [place] [address] 01/01/2025 3:00 PM EDT Appointment [facility] 1 [address] [place] [address] 01/02/2025 2:00 PM EDT Appointment [facility] 1 [address] [place] [address] 01/03/2025 2:00 PM EDT Appointment [facility] 1 [address] [place] [address] 01/04/2025 2:00 PM EDT Appointment [facility] 1 [address] [place] [address] 01/05/2025 4:00 PM EDT Appointment [facility] 1 [address] [place] [address] documented as of this encounter Visit Diagnoses Not on filedocumented in this encounter Additional Health Concerns Assessment Noted Time A fall risk assessment has been complete d for the patient 01/11/2024 9:16 AM EDT A Body Mass Index follow-up plan has been documented for the patient 01/21/2024 6:16 AM EDT documented as of this encounter Care Teams Laser Operator Relationship Specialty Start Date End Date Jevon Vazquez MD [address] [place] [address] #1 #1 [place] [address] PCP - General 03/23/22 documented as of this encounter
--- OUTSIDE RECORDS SUMMARY | 2024-12-22 09:08 | XMS_ITS | Encounter Summary ---
Author Organization Healthcare Address [address] [place] [address] Care Team Providers Care Day Care Director Name Role Phone Jevon Vazquez MD Primary Care Provider Encounter Details Date Type Department Care Team (Late Contact Info) Description 11/27/2024 Telephone [facility] CC Hematology/BMT and Cellular Therapy Program [address] [phone] Zonia Hoffman, TRACK MECHANIC 800 [facility] [address] [place] [phone] Social History Tobacco Use Types Packs/Day Years [...] CC Hematology/BMT and Cellular Therapy Program 750 [facility] [place] [address] 12/30/2024 9:00 AM EDT Office Visit PAV Hematology/BMT and Cellular Therapy Program 750 [facility] [place] [address] Bibiana Sepulveda, TRACK MECHANIC 800 [facility] [address] [place] [phone] 12/30/2024 10:30 AM EDT Appointment [facility] 1 [address] [place] [address] 12/31/2024 3:00 PM EDT Appointment [facility] 1 [address] [place] [address] 01/01/2025 3:00 PM EDT Appointment [facility] 1 [address] [place] [address] 01/02/2025 2:00 PM EDT Appointment [facility] 1 [address] [place] [address] 01/03/2025 2:00 PM EDT Appointment [facility] 1 [address] [place] [address] 01/04/2025 2:00 PM EDT Appointment [facility] 1 [address] [place] [address] 01/05/2025 4:00 PM EDT Appointment [facility] 1 [address] [place] [address] documented as of this encounter Visit Diagnoses Not on filedocumented in this encounter Additional Health Concerns Assessment Noted Time A fall risk assessment has been complete d for the patient 09/30/2024 9:33 AM EDT A Body Mass Index follow-up plan has been documented for the patient 05/28/2024 1:52 PM EST documented as of this encounter Care Teams Day Care Director Relationship Specialty Start Date End Date Jevon Vazquez MD [address] [place] [address] #1 #1 [place] [address] PCP - General 03/23/22 documented as of this encounter
--- OUTSIDE RECORDS SUMMARY | 2024-12-22 09:08 | XMS_ITS | Encounter Summary ---
Author Organization [facility] Address [address] [place] [address] Care Team Providers Care Design Center Consultant Name Role Phone Jevon Vazquez MD Primary Care Provider [phone] Reason for Visit * Reason Comments Med Refill Encounter Details Date Type Department Care Team ([facility] Contact Info) Description 11/08/2024 Refill PAV CC Hematology/BMT and Cellular Therapy Program [address] [phone] New Mckinney MD 800 [facility] [address] [place] [phone] Social History Tobacco Use Types Packs/Day Years [...] Team ([facility] Contact Info) Description 12/30/2024 8:30 AM EDT Clinical Support PAV CC Hematology/BMT and Cellular Therapy Program [address] [phone] 12/30/2024 9:00 AM EDT Office Visit PAV CC Hematology/BMT and Cellular Therapy Program [address] [phone] Bibiana Sepulveda, LABORER BRUSH CLEARING [address] [facility] [address] [place] [address] 12/30/2024 10:30 AM EDT Appointment [facility] 1 [address] [place] [address] 12/31/2024 3:00 PM EDT Appointment [facility] 1 [address] [place] [address] 01/01/2025 3:00 PM EDT Appointment [facility] 1 [address] [place] [address] 01/02/2025 2:00 PM EDT Appointment [facility] 1 [address] [place] [address] 01/03/2025 2:00 PM EDT Appointment [facility] 1 [address] [place] [address] 01/04/2025 2:00 PM EDT Appointment [facility] 1 [address] [place] [address] 01/05/2025 4:00 PM EDT Appointment [facility] 1 [address] [place] [address] documented as of this encounter Visit Diagnoses Not on filedocumented in this encounter Additional Health Concerns Assessment Noted Time A fall risk assessment has been complete d for the patient 09/30/2024 9:33 AM EDT A Body Mass Index follow-up plan has been documented for the patient 05/28/2024 1:52 PM EST documented as of this encounter Care Teams Design Center Consultant Relationship Specialty Start Date End Date Jevon Vazquez MD [address] [place] [address] #1 #1 [place] [address] PCP - General 03/23/22 documented as of this encounter
--- OUTSIDE RECORDS SUMMARY | 2024-12-22 09:08 | XMS_ITS | Encounter Summary ---
Author Organization [facility] Address [address] [place] [address] Care Team Providers Care Carton Making Machinist Name Role Phone Jevon Vazquez MD Primary Care Provider [phone] Reason for Visit * Reason Comments Med Refill Encounter Details Date Type Department Care Team ([facility] Contact Info) Description 12/09/2024 Refill P[facility] CC Hematology/BMT and Cellular Therapy Program [address] [phone] Zonia Hoffman, HIGH SCHOOL LEARNING SUPPORT TEACHER 800 [facility] [address] [place] [phone] Social History Tobacco Use Types Packs/Day Years [...] Upcoming Encounters Date Type Department Care Team ([facility] Contact Info) Description 12/30/2024 8:30 AM EDT Clinical Support P[facility] CC Hematology/BMT and Cellular Therapy Program [address] [phone] 12/30/2024 9:00 AM EDT Office Visit P[facility] CC Hematology/BMT and Cellular Therapy Program [address] [phone] Bibiana Sepulveda, HIGH SCHOOL LEARNING SUPPORT TEACHER [address] [facility] [address] [place] [address] 12/30/2024 10:30 AM EDT Appointment [facility] 1 [address] [place] [address] 12/31/2024 3:00 PM EDT Appointment [facility] 1 [address] [place] [address] 01/01/2025 3:00 PM EDT Appointment [facility] 1 [address] [place] [address] 01/02/2025 2:00 PM EDT Appointment [facility] 1 [address] [place] [address] 01/03/2025 2:00 PM EDT Appointment [facility] 1 [address] [place] [address] 01/04/2025 2:00 PM EDT Appointment [facility] 1 [address] [place] [address] 01/05/2025 4:00 PM EDT Appointment [facility] 1 [address] [place] [address] documented as of this encounter Visit Diagnoses Not on filedocumented in this encounter Additional Health Concerns Assessment Noted Time A fall risk assessment has been complete d for the patient 09/30/2024 9:33 AM EDT A Body Mass Index follow-up plan has been documented for the patient 05/28/2024 1:52 PM EST documented as of this encounter Care Teams Carton Making Machinist Relationship Specialty Start Date End Date Jevon Vazquez MD [address] [place] [address] #1 #1 [place]SEP [place] [id number] PCP - General 03/23/22 documented as of this encounter
--- OUTSIDE RECORDS SUMMARY | 2024-12-22 09:08 | XMS_ITS | Encounter Summary ---
Author Organization Healthcare Address [address] [place] [address] Care Team Providers Care First Assistant Name Role Phone Jevon Vazquez MD Primary Care Provider [phone] Encounter Details Date Type Department Care Team [...] Hematology/BMT and Cellular Therapy Program [address] [address] 12/30/2024 9:00 AM EDT Office Visit P[facility] CC Hematology/BMT and Cellular Therapy Program [address] [address] Bibiana Sepulveda, MECHANICAL ENGINEERING DIRECTOR 800 [facility] [address] [place] [phone] 12/30/2024 10:30 AM EDT Appointment [facility] 1 [address] [place] [address] 12/31/2024 3:00 PM EDT Appointment [facility] 1 [address] [place] [address] 01/01/2025 3:00 PM EDT Appointment [facility] 1 [address] [place] [address] 01/02/2025 2:00 PM EDT Appointment [facility] 1 [address] [place] [address] 01/03/2025 2:00 PM EDT Appointment [facility] 1 [address] [place] [address] 01/04/2025 2:00 PM EDT Appointment [facility] 1 [address] [place] [address] 01/05/2025 4:00 PM EDT Appointment [facility] 1 [address] [place] [address] documented as of this encounter Visit Diagnoses Not on filedocumented in this encounter Additional Health Concerns Assessment Noted Time A fall risk assessment has been complete d for the patient 09/30/2024 9:33 AM EDT A Body Mass Index follow-up plan has been documented for the patient 05/28/2024 1:52 PM EST documented as of this encounter Care Teams First Assistant Relationship Specialty Start Date End Date Jevon Vazquez MD [address] [place] [address] #1 #1 [place] [address] PCP - General 03/23/22 documented as of this encounter
--- OUTSIDE RECORDS SUMMARY | 2024-12-22 09:08 | XMS_ITS | Clinical Summary ---
Author Organization [facility] Address [address] [place] [address] Care Team Providers Care Outside Industrial Sales Representative Name Role Phone David Vazquez Primary Care Provider [phone] Allergies No known active allergies Medications atorvastatin [...] series) 2025 Medical Devices Implanted Type Area Business Analysis Analyst Device Identifier Shelf Expiration Date Model / Serial / Lot Mis Ply Scr 6.5x50mm - [id number] Implanted:Qty : 1 on 01/30/2023 by Ivan Bartholomew MD at [facility] [place] Screw N/A: Spine Lumbar [employer] [id number] / / Mis Ply Scr 6.5x45mm - [id number] Implanted:Qty : 3 on 01/30/2023 by Ivan Bartholomew MD at [facility] [place] Screw N/A: Spine Lumbar [employer] [id number] / / Reline Mas Reduction Screw 7.5x45 - [id number] Implanted:Qty : 2 on 01/30/2023 by Ivan Bartholomew MD at [facility] [place] Screw N/A: Spine Lumbar [employer] [id number] / / Grft Dbm Vesuvius Putty 5cc - [id number] Implanted:Qty : 1 on 01/30/2023 by Ivan Bartholomew MD at [facility] [place] [employer] [id number] 04/20/2025 [id number] P / [id number] 1 / Putty I-Factor 5.0cc - [id number] Implanted:Qty : 1 on 01/30/2023 by Ivan Bartholomew MD at [facility] [place] N/A: Spine Lumbar [employer] 03/15/2025 [id number] / / [id number] Modulus Xlw [id number] 10 Degree - [id number] Implanted:Qty : 1 on 01/30/2023 by Ivan Bartholomew MD at [facility] [place] N/A: Spine Lumbar [employer] [id number] / / [id number] Modulus Xlw [id number] - [id number] Implanted:Qty : 1 on 01/30/2023 by Ivan Bartholomew MD at [facility] [place] N/A: Spine Lumbar [employer] 09/28/2027 [id number] / / [id number] Reln Lock Scr 5.5mm Opn Tulip - [id number] Implanted:Qty : 6 on 01/30/2023 by Ivan Bartholomew MD at [facility] N/A: Spine Lumbar [employer] [id number] / / Reln Mas Ti Petar 5.5x70mm - [id number] Implanted:Qty : 2 on 01/30/2023 by Ivan Bartholomew MD at [facility] N/A: Spine Lumbar [employer] [id number] / / Procedures Procedure Name Priority Date/Time [...] Hgb A1C 6.0(H) 4.0 - 5.6 % [facility] Comment: Reference Ranges for [...] Glycohemoglobin Standardization program (NGSP) and traceable to [facility]. Estimated Average Glucose 126(H) 68 - 114 mg/dL [facility] Whole Blood (Blood) 01/24/2023 2:32 PM EDT 01/24/2023 6:00 PM EDT us Ivan Bartholomew MD CHEMISTRY ORDERABLES Fin al Result [facility] [address] * (ABNORMAL) BASIC METABOLIC PANEL (BMP=EP1) (01/24/2023 2:32 PM EDT) Sodium 141 135 - 146 mmol/L [facility] Potassium 4.8 3.5 - 5.1 mmol/L [facility] Chloride 107 98 - 110 mmol/L [facility] CO2 24 22 - 29 mmol/L [facility] Anion Gap 10 5 - 13 mmol/L [facility] Comment:Anion gap calculatio n does not include potassium (K+) value. BUN 17 7 - 25 mg/dL [facility] Creatinine 1.20 0.50 - 1.20 mg/dL [facility] Glucose 125(H) 71 - 99 mg/dL [facility] Comment:Reference range (71- 99 mg/dL) refers only to fasting samples, and does not apply to non-fasting samples. eGFR CKD-EPI 2020 48 See Note [facility] Comment: eGFR calculated with 2020 CKD-EPI equation using creatinine, patient's age and gender. Other factors, especially muscle mass, may affect accuracy and need to be considered. Patient values should be interpreted as a trend. The reference interval is >60 mL/min/1.73m2. Calcium 10.3 8.5 - 10.5 mg/dL [facility] BUN/Creatinine Ratio 14 [facility] Serum 01/24/2023 2:32 PM EDT 01/24/2023 5:54 PM EDT us Lexi SUAREZ CHEMISTRY ORDERABLES Final Resu lt [facility] [address] from Last 3 Months or Most Recently Relevant to Health Maintenance Insurance MEDICARE PART A [facility] [address] [address] [place] [address] ANTH Advance Directives For more information, please contact: [phone] * Full Code (Latest Code Status on File) Date Activated Date Inactivated Comments 01/30/2023 9:13 AM No automated chest compression devices for [facility] Patients Care Teams Outside Industrial Sales Representative Relationship Specialty Start Date End Date David Vazquez [address] [place] [phone] PCP - General 01/24/23
--- OUTSIDE RECORDS SUMMARY | 2024-12-22 09:08 | XMS_ITS | Encounter Summary ---
Author Organization Healthcare Address [address] [place] [address] Care Team Providers Care Wood Patternmaker Name Role Phone Jevon Vazquez MD Primary Care Provider [phone] Encounter Details Date Type Department Care Team [...] Cellular Therapy Program [address] [address] 12/30/2024 9:00 AM EDT Office Visit [facility] CC Hematology/BMT and Cellular Therapy Program [address] [address] Bibiana Sepulveda, COMPUTER CONSOLE OPERATOR 800 [facility] [address] [place] [phone] 12/30/2024 10:30 AM EDT Appointment [facility] 1 [address] [place] [address] 12/31/2024 3:00 PM EDT Appointment [facility] 1 [address] [place] [address] 01/01/2025 3:00 PM EDT Appointment [facility] 1 [address] [place] [address] 01/02/2025 2:00 PM EDT Appointment [facility] 1 [address] [place] [address] 01/03/2025 2:00 PM EDT Appointment [facility] 1 [address] [place] [address] 01/04/2025 2:00 PM EDT Appointment [facility] 1 [address] [place] [address] 01/05/2025 4:00 PM EDT Appointment [facility] 1 [address] [place] [address] documented as of this encounter Visit Diagnoses Not on filedocumented in this encounter Additional Health Concerns Assessment Noted Time A fall risk assessment has been complete d for the patient 09/30/2024 9:33 AM EDT A Body Mass Index follow-up plan has been documented for the patient 05/28/2024 1:52 PM EST documented as of this encounter Care Teams Wood Patternmaker Relationship Specialty Start Date End Date Jevon Vazquez MD [address] [place] [address] #1 #1 [place] [address] PCP - General 03/23/22 documented as of this encounter
--- OUTSIDE RECORDS SUMMARY | 2024-12-22 09:08 | XMS_ITS | Encounter Summary ---
Author Organization Healthcare Address [address] [place] [address] Care Team Providers Care Medical Transcription Name Role Phone Jevon Vazquez MD Primary Care Provider [phone] Encounter Details Date Type Department Care Team ([facility] st Contact Info) Description 10/27/2024 Telephone [facility] CC Hematology/BMT and Cellular Therapy Program [address] [address] Zonia Hoffman, MAGNAFLUX OPERATOR 800 [facility] [address] [place] [phone] Social History Tobacco Use Types Packs/Day Years [...] and her new appts will be on [employer]. She verbalizes understanding. * Telephone Encounter - [...] Hematology/BMT and Cellular Therapy Program [address] [address] 12/30/2024 9:00 AM EDT Office Visit PAV Hematology/BMT and Cellular Therapy Program [address] [address] Bibiana Sepulveda, MAGNAFLUX OPERATOR 800 [facility] [address] [place] [address] 12/30/2024 10:30 AM EDT Appointment [facility] 1 [address] [place] [address] 12/31/2024 3:00 PM EDT Appointment [facility] 1 [address] [place] [address] 01/01/2025 3:00 PM EDT Appointment [facility] 1 [address] [place] [address] 01/02/2025 2:00 PM EDT Appointment [facility] 1 [address] [place] [address] 01/03/2025 2:00 PM EDT Appointment [facility] 1 [address] [place] [address] 01/04/2025 2:00 PM EDT Appointment [facility] 1 [address] [place] [address] 01/05/2025 4:00 PM EDT Appointment [facility] 1 [address] [place] [address] documented as of this encounter Visit Diagnoses Not on filedocumented in this encounter Additional Health Concerns Assessment Noted Time A fall risk assessment has been complete d for the patient 09/30/2024 9:33 AM EDT A Body Mass Index follow-up plan has been documented for the patient 05/28/2024 1:52 PM EST documented as of this encounter Care Teams Medical Transcription Relationship Specialty Start Date End Date Jevon Vazquez MD [address] [place] [address] #1 #1 [place] [address] PCP - General 03/23/22 documented as of this encounter
--- OUTSIDE RECORDS SUMMARY | 2024-12-22 09:09 | XMS_ITS | Encounter Summary ---
Author Organization Healthcare Address [address] [place] [address] Care Team Providers Care Social Work Program Coordinator Name Role Phone Jevon Vazquez MD Primary Care Provider [phone] Encounter Details Date Type Department Care Team [...] Hematology/BMT and Cellular Therapy Program [address] [address] 12/30/2024 9:00 AM EDT Office Visit [facility] Hematology/BMT and Cellular Therapy Program [address] [address] Bibiana Sepulveda, DAMAGE ASSESSOR 800 [facility] [address] [place] [address] 12/30/2024 10:30 AM EDT Appointment [facility] 1 [address] [place] [address] 12/31/2024 3:00 PM EDT Appointment [facility] 1 [address] [place] [address] 01/01/2025 3:00 PM EDT Appointment [facility] 1 [address] [place] [address] 01/02/2025 2:00 PM EDT Appointment [facility] 1 [address] [place] [address] 01/03/2025 2:00 PM EDT Appointment [facility] 1 [address] [place] [address] 01/04/2025 2:00 PM EDT Appointment [facility] 1 [address] [place] [address] 01/05/2025 4:00 PM EDT Appointment [facility] 1 [address] [place] [address] documented as of this encounter Visit Diagnoses Not on filedocumented in this encounter Additional Health Concerns Assessment Noted Time A fall risk assessment has been complete d for the patient 09/30/2024 9:33 AM EDT A Body Mass Index follow-up plan has been documented for the patient 05/28/2024 1:52 PM EST documented as of this encounter Care Teams Social Work Program Coordinator Relationship Specialty Start Date End Date Jevon Vazquez MD [address] [place] [address] [address]1 [address]1 [place] [address] PCP - General 03/23/22 documented as of this encounter
--- OUTSIDE RECORDS SUMMARY | 2024-12-22 09:09 | XMS_ITS | Encounter Summary ---
Author Organization Healthcare Address [address] [place] [address] Care Team Providers Care Clamp Carrier Operator Name Role Phone Jevon Vazquez MD Primary Care Provider [phone] Encounter Details Date Type Department Care Team [...] Hematology/BMT and Cellular Therapy Program [address] [address] 12/30/2024 9:00 AM EDT Office Visit [facility] Hematology/BMT and Cellular Therapy Program [address] [address] Bibiana Sepulveda, SEROLOGY TECHNICIAN [address] [facility] [address] [place] [address] 12/30/2024 10:30 AM EDT Appointment [facility] 1 [address] [place] [address] 12/31/2024 3:00 PM EDT Appointment [facility] 1 [address] [place] [address] 01/01/2025 3:00 PM EDT Appointment [facility] 1 [address] [place] [address] 01/02/2025 2:00 PM EDT Appointment [facility] 1 [address] [place] [address] 01/03/2025 2:00 PM EDT Appointment [facility] 1 [address] [place] [address] 01/04/2025 2:00 PM EDT Appointment [facility] 1 [address] [place] [address] 01/05/2025 4:00 PM EDT Appointment [facility] 1 [address] [place] [address] documented as of this encounter Visit Diagnoses Not on filedocumented in this encounter Additional Health Concerns Assessment Noted Time A fall risk assessment has been complete d for the patient 09/30/2024 9:33 AM EDT A Body Mass Index follow-up plan has been documented for the patient 05/28/2024 1:52 PM EST documented as of this encounter Care Teams Clamp Carrier Operator Relationship Specialty Start Date End Date Jevon Vazquez MD [address] [place] [address] [address]1 [address] [place] [address] PCP - General 03/23/22 documented as of this encounter
--- OUTSIDE RECORDS SUMMARY | 2024-12-22 09:09 | XMS_ITS | Clinical Summary ---
Author Organization [facility] Address [address] [place] [address] Phone Care Team Providers Care Hepatologist Name Role Phone Jevon Vazquez MD Primary Care Provider [phone] Allergies Active Allergy Reactions Criticality Noted Date [...] L4-5 LAMINECTOMY; Surgeon: Ivan Bartholomew MD; Location: [facility] MAIN OR; Service: Spine Medical [...] 5.6 % 11/14/2022 2:57 PM EDT PREFERRED [employer], [employer] Est. Avg Glucose 148 mg/dL 11/14/2022 2:57 PM EDT [employer], [facility] Blood VENOUS BLOOD / Unknown Venipuncture / Unknown 11/11/2022 3:46 PM EDT 11/11/2022 3:55 PM EDT Narrative [facility] - 11/14/2022 2:57 PM EDT REFERENCE RANGE: Normal: 4.0-5.6% Pre-diabetes: 5.7-6.4% Provisional diagnosis of diabetes: >6.4% Hgb F>10% and anything which shortens red cell survival, such as hemolytic anemia, or unstable hemoglobin variants such as HbSS, HbSC, or HbCC, will lower the HbA1c value associated with a given level of glycemic control. us Lexi Maloney DO CHEMISTRY ORDERABLES Final R esult [facility] [employer]ouses [facility] [address] [facility] , [address] [place] [id number] * (ABNORMAL) BASIC METABOLIC PANEL (11/11/2022 3:46 PM EDT) Sodium 136 136 - 145 mmol/L 11/11/2022 4:11 PM EDT [facility] Potassium 3.8 3.5 - 5.0 mmol/L 11/11/2022 4:11 PM EDT [facility] Chloride 102 98 - 107 mmol/L 11/11/2022 4:11 PM EDT [facility] Total CO2 24 22 - 29 mmol/L 11/11/2022 4:11 PM EDT [facility] Anion Gap 10 7 - 16 mmol/L 11/11/2022 4:11 PM EDT [facility] Calcium 10.1 8.8 - 10.4 mg/dL 11/11/2022 4:11 PM EDT [facility] Glucose Lvl 147(H) 82 - 100 mg/dL 11/11/2022 4:11 PM EDT [facility] BUN 15 8 - 23 mg/dL 11/11/2022 4:11 PM EDT [facility] Creatinine 0.82 0.51 - 1.30 mg/dL 11/11/2022 4:11 PM EDT [facility] eGFR (CKD-EPIcr 2020) 76 >=60 mL/min/1.7 3 m2 11/11/2022 4:11 PM EDT [facility] Comment:Estimated GFR was ca lculated using the CKD-EPIcr (2020) equation refit without race. The equation is recommended by the National Kidney Foundation - [place] Society of Nephrology Task Force. Blood VENOUS BLOOD / Unknown Venipuncture / Unknown 11/11/2022 3:46 PM EDT 11/11/2022 3:54 PM EDT us Leona Hanna DO CHEMISTRY ORDERABLES Final Res ult [facility] [address] [place] [address] * DX BONE DENSITY AXIAL SKELETON (07/25/2022 9:14 AM EDT) Anatomical Region Laterality Modality Dexa Scan 07/25/2022 Narrative 07/25/2022 3:45 PM EDT Indication: The patient is a female age 65 or older who requires a bone density assessment. Study was performed on Nativis 5. Bone Density: Region BMD T-score Z-score [...] Insurance [place] [address] MEDICARE SUPPLEMENT [place]ICARE [place] PART A AND B Member Subscriber Plan / Payer (Ef fective 2016-Present) Name:Ashly Hernández Member ID:[id number] Relation to Subscriber:Self Name:Ashly Hernández Subscriber ID:[id number] Payer ID:Not on file Group ID:Not on file Type:Not on file Address: [address] MEDICARE SUPPLEMENT MEDICARE [place] A [place] B [place] B Member Subscriber Plan / Payer (Ef fective 2016-Present) Name:Ashly Hernández Member ID:[id number] Relation to Subscriber:Self Name:Ashly Hernández Subscriber ID:[id number] Payer ID:Not on file Group ID:Not on file Type:Not on file Address: [address] MEDICARE SUPPLEMENT [employer] MEDICARE [place] PART A AND B [address] MEDICARE SUPPLEMENT Advance Directives For more information, please contact: [phone] * Full Code (Latest Code Status on File) Date Activated Date Inactivated Comments 11/14/2022 6:53 PM 11/16/2022 7:37 PM * Full Code Date Activated Date Inactivated Comments 11/12/2022 5:17 AM 11/14/2022 6:47 PM Care Teams Hepatologist Relationship Specialty Start Date End Date Jevon Vazquez MD [address] [place] [address] PCP - General Family Medicine 11/10/22
--- OUTSIDE RECORDS SUMMARY | 2024-12-22 09:09 | XMS_ITS | Encounter Summary ---
Author Organization Healthcare Address [address] [place] [address] Care Team Providers Care Making Line Worker Name Role Phone Jevon Vazquez MD Primary Care Provider [phone] Encounter Details Date Type Department Care Team [...] Hematology/BMT and Cellular Therapy Program [address] [address] 12/30/2024 9:00 AM EDT Office Visit [facility] Hematology/BMT and Cellular Therapy Program [address] [address] Bibiana Sepulveda, SUPERVISOR TYPE PHOTOGRAPHY 800 [facility] [address] [place] [address] 12/30/2024 10:30 AM EDT Appointment [facility] 1 [address] [place] [address] 12/31/2024 3:00 PM EDT Appointment [facility] 1 [address] [place] [address] 01/01/2025 3:00 PM EDT Appointment [facility] 1 [address] [place] [address] 01/02/2025 2:00 PM EDT Appointment [facility] 1 [address] [place] [address] 01/03/2025 2:00 PM EDT Appointment [facility] 1 [address] [place] [address] 01/04/2025 2:00 PM EDT Appointment [facility] 1 [address] [place] [address] 01/05/2025 4:00 PM EDT Appointment [facility] 1 [address] [place] [address] documented as of this encounter Visit Diagnoses Not on filedocumented in this encounter Additional Health Concerns Assessment Noted Time A fall risk assessment has been complete d for the patient 09/30/2024 9:33 AM EDT A Body Mass Index follow-up plan has been documented for the patient 05/28/2024 1:52 PM EST documented as of this encounter Care Teams Making Line Worker Relationship Specialty Start Date End Date Jevon Vazquez MD [address] [place] [address] [address]1 [address]1 [place] [address] PCP - General 03/23/22 documented as of this encounter
--- OUTSIDE RECORDS SUMMARY | 2024-12-22 09:09 | XMS_ITS | Encounter Summary ---
Author Organization Healthcare Address [address] [place] [address] Care Team Providers Care Motorcycle Builder Name Role Phone Jevon Vazquez MD Primary Care Provider [phone] Encounter Details Date Type Department Care Team ([facility] st Contact Info) Description 10/28/2024 Telephone [facility] Hematology/BMT and Cellular Therapy Program [address] [address] Zonia Hoffman, ACCOUNT MANAGEMENT ASSISTANT 800 [facility] [address] [place] [address] Social History Tobacco Use Types Packs/Day Years [...] go over her labs results Callback number: [phone] documented in this encounter Plan of Treatment Upcoming Encounters Date Type Department Care Team (Late st Contact Info) Description 12/30/2024 8:30 AM EDT Clinical Support [facility] Hematology/BMT and Cellular Therapy Program 750 [facility], [address] [place] [address] 12/30/2024 9:00 AM EDT Office Visit [facility] Hematology/BMT and Cellular Therapy Program 750 [facility], [address] [place] [address] Bibiana Sepulveda, ACCOUNT MANAGEMENT ASSISTANT 800 [facility] [address] [place] [address] 12/30/2024 10:30 AM EDT Appointment [facility] 1 [address] [place] [address] 12/31/2024 3:00 PM EDT Appointment [facility] 1 [address] [place] [address] 01/01/2025 3:00 PM EDT Appointment [facility] 1 [address] [place] [address] 01/02/2025 2:00 PM EDT Appointment [facility] 1 [address] [place] [address] 01/03/2025 2:00 PM EDT Appointment [facility] 1 [address] [place] [address] 01/04/2025 2:00 PM EDT Appointment [facility] 1 [address] [place] [address] 01/05/2025 4:00 PM EDT Appointment [facility] 1 [address] [place] [address] documented as of this encounter Visit Diagnoses Not on filedocumented in this encounter Additional Health Concerns Assessment Noted Time A fall risk assessment has been complete d for the patient 09/30/2024 9:33 AM EDT A Body Mass Index follow-up plan has been documented for the patient 05/28/2024 1:52 PM EST documented as of this encounter Care Teams Motorcycle Builder Relationship Specialty Start Date End Date Jevon Vazquez MD [address] [place] [address] #1 [address]1 [place] [address] PCP - General 03/23/22 documented as of this encounter
--- OUTSIDE RECORDS SUMMARY | 2024-12-22 09:09 | XMS_ITS | Encounter Summary ---
Author Organization Healthcare Address [address] [place] [id number] Care Team Providers Care Plant Quality Manager Name Role Phone Jevon Vazquez MD Primary Care Provider [phone] Encounter Details Date Type Department Care Team ([facility] Contact Info) Description 11/13/2024 Orders Only [facility] Hematology/BMT and Cellular Therapy Program [address] [address] 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, RN [facility] Acute myeloid [...] Hematology/BMT and Cellular Therapy Program [address] [address] 12/30/2024 9:00 AM EDT Office Visit [facility] Hematology/BMT and Cellular Therapy Program [address] [address] Bibiana Sepulveda, SPINNER FIXER 800 [facility] [address] [place] [address] 12/30/2024 10:30 AM EDT Appointment [facility] 1 [address] [place] [address] 12/31/2024 3:00 PM EDT Appointment [facility] 1 [address] [place] [address] 01/01/2025 3:00 PM EDT Appointment [facility] 1 [address] [place] [address] 01/02/2025 2:00 PM EDT Appointment [facility] 1 [address] [place] [address] 01/03/2025 2:00 PM EDT Appointment [facility] 1 [address] [place] [address] 01/04/2025 2:00 PM EDT Appointment [facility] 1 [address] [place] [address] 01/05/2025 4:00 PM EDT Appointment [facility] 1 [address] [place] [address] Scheduled Orders Name Type Priority Associated Diagnoses [...] documented as of this encounter Care Teams Plant Quality Manager Relationship Specialty Start Date End Date Jevon Vazquez MD [address] [place] [address] #1 [address]1 [place] [address] PCP - General 03/23/22 documented as of this encounter
--- OUTSIDE RECORDS SUMMARY | 2024-12-22 09:09 | XMS_ITS | Encounter Summary ---
Author Organization Healthcare Address [address] [place] [address] Care Team Providers Care Mobile Health Vehicle Operator Name Role Phone Jevon Vazquez MD Primary Care Provider [phone] Encounter Details Date Type Department Care Team [...] Hematology/BMT and Cellular Therapy Program [address] [address] 12/30/2024 9:00 AM EDT Office Visit [facility] Hematology/BMT and Cellular Therapy Program [address] [address] Bibiana Sepulveda, CAMP DINING ROOM ATTENDANT 800 [facility] [address] [place] [address] 12/30/2024 10:30 AM EDT Appointment [facility] 1 [address] [place] [address] 12/31/2024 3:00 PM EDT Appointment [facility] 1 [address] [place] [address] 01/01/2025 3:00 PM EDT Appointment [facility] 1 [address] [place] [address] 01/02/2025 2:00 PM EDT Appointment [facility] 1 [address] [place] [address] 01/03/2025 2:00 PM EDT Appointment [facility] 1 [address] [place] [address] 01/04/2025 2:00 PM EDT Appointment [facility] 1 [address] [place] [address] 01/05/2025 4:00 PM EDT Appointment [facility] 1 [address] [place] [address] documented as of this encounter Visit Diagnoses Not on filedocumented in this encounter Additional Health Concerns Assessment Noted Time A fall risk assessment has been complete d for the patient 09/30/2024 9:33 AM EDT A Body Mass Index follow-up plan has been documented for the patient 05/28/2024 1:52 PM EST documented as of this encounter Care Teams Mobile Health Vehicle Operator Relationship Specialty Start Date End Date Jevon Vazquez MD [address] [place] [address] #1 [address]1 [place] [address] PCP - General 03/23/22 documented as of this encounter
--- OUTSIDE RECORDS SUMMARY | 2024-12-22 09:09 | XMS_ITS | Encounter Summary ---
Author Organization Healthcare Address [address] [place] [address] Care Team Providers Care Health Nurse Name Role Phone Jevon Vazquez MD Primary Care Provider [phone] Encounter Details Date Type Department Care Team [...] Hematology/BMT and Cellular Therapy Program [address] [address] 12/30/2024 9:00 AM EDT Office Visit [facility] Hematology/BMT and Cellular Therapy Program [address] [address] Bibiana Sepulveda, CORE PASTER 800 [facility] [address] [place] [address] 12/30/2024 10:30 AM EDT Appointment [facility] 1 [address] [place] [address] 12/31/2024 3:00 PM EDT Appointment [facility] 1 [address] [place] [address] 01/01/2025 3:00 PM EDT Appointment [facility] 1 [address] [place] [address] 01/02/2025 2:00 PM EDT Appointment [facility] 1 [address] [place] [address] 01/03/2025 2:00 PM EDT Appointment [facility] 1 [address] [place] [address] 01/04/2025 2:00 PM EDT Appointment [facility] 1 [address] [place] [address] 01/05/2025 4:00 PM EDT Appointment [facility] 1 [address] [place] [address] documented as of this encounter Visit Diagnoses Not on filedocumented in this encounter Additional Health Concerns Assessment Noted Time A fall risk assessment has been complete d for the patient 09/30/2024 9:33 AM EDT A Body Mass Index follow-up plan has been documented for the patient 05/28/2024 1:52 PM EST documented as of this encounter Care Teams Health Nurse Relationship Specialty Start Date End Date Jevon Vazquez MD [address] [place] [address] [address]1 [address]1 [place] [address] PCP - General 03/23/22 documented as of this encounter
--- OUTSIDE RECORDS SUMMARY | 2024-12-22 09:09 | XMS_ITS | Encounter Summary ---
Author Organization [facility] Address [address] [place] [address] Care Team Providers Care Casing Soaker Name Role Phone Jevon Vazquez MD Primary Care Provider [phone] Encounter Details Date Type Department Care Team ([facility] Contact Info) Description 11/12/2024 Telephone [facility] Hematology/BMT and Cellular Therapy Program [address] [address] Zonia Hoffman, RECEIVING COORDINATOR 800 [facility] [address] [place] [address] Social History Tobacco Use Types Packs/Day Years [...] Hematology/BMT and Cellular Therapy Program [address] [place] [address] 12/30/2024 9:00 AM EDT Office Visit [facility] Hematology/BMT and Cellular Therapy Program 750 [facility] [place] [address] Bibiana Sepulveda, RECEIVING COORDINATOR 800 [facility] [address] [place] [address] 12/30/2024 10:30 AM EDT Appointment [facility] 1 [address] [place] [address] 12/31/2024 3:00 PM EDT Appointment [facility] 1 [address] [place] [address] 01/01/2025 3:00 PM EDT Appointment [facility] 1 [address] [place] [address] 01/02/2025 2:00 PM EDT Appointment [facility] 1 [address] [place] [address] 01/03/2025 2:00 PM EDT Appointment [facility] 1 [address] [place] [address] 01/04/2025 2:00 PM EDT Appointment [facility] Infusion Clinic 1 [address] [place] [address] 01/05/2025 4:00 PM EDT Appointment [facility] 1 [address] [place] [address] documented as of this encounter Visit Diagnoses Not on filedocumented in this encounter Additional Health Concerns Assessment Noted Time A fall risk assessment has been complete d for the patient 09/30/2024 9:33 AM EDT A Body Mass Index follow-up plan has been documented for the patient 05/28/2024 1:52 PM EST documented as of this encounter Care Teams Casing Soaker Relationship Specialty Start Date End Date Jevon Vazquez MD [address] [place] [address] #1 [address]1 [place] [address] PCP - General 03/23/22 documented as of this encounter
--- OUTSIDE RECORDS SUMMARY | 2024-12-22 09:09 | XMS_ITS | Clinical Summary ---
Author Organization [facility] Address [address] [place] [address] Care Team Providers Care Canvas Shop Laborer Name Role Phone Jevon Vazquez MD Primary Care Provider [phone] Allergies No known active allergies Medications amLODIPine [...] Hematology/BMT and Cellular Therapy Program [address] [phone] New Mckinney MD 12/10/2024 Travel 12/09/2024 Refill [facility] Hematology/BMT and Cellular Therapy Program [address] [phone] Zonia Hoffman, FAMILY COUNSELOR 11/27/2024 Telephone [facility] Hematology/BMT and Cellular Therapy Program [address] [phone] Zonia Hoffman, FAMILY COUNSELOR 11/26/2024 Travel 11/25/2024 Travel 11/24/2024 Travel 11/23/2024 Travel 11/22/2024 Travel 11/13/2024 Orders Only [facility] Hematology/BMT and Cellular Therapy Program [address] [phone] 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, research affiliate 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) 11/12/2024 Travel 11/12/2024 Telephone [facility] Hematology/BMT and Cellular Therapy Program [address] [phone] Zonia Hoffman, FAMILY COUNSELOR 11/11/2024 Travel 11/10/2024 Travel 11/09/2024 Travel 11/08/2024 Travel 11/08/2024 Refill [facility] Hematology/BMT and Cellular Therapy Program [address] [address] New Mckinney MD 11/07/2024 Travel 10/29/2024 Refill [facility] Hematology/BMT and Cellular Therapy Program [address] [phone] Zonia Hoffman, FAMILY COUNSELOR 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); Immunosuppressed status (CMS/HCC) 10/28/2024 Telephone [facility] Hematology/BMT and Cellular Therapy Program [address] [phone] Zonia Hoffman, FAMILY COUNSELOR 10/27/2024 Telephone [facility] Hematology/BMT and Cellular Therapy Program [address] [phone] Zonia Hoffman, FAMILY COUNSELOR 10/27/2024 Travel 10/26/2024 Travel 10/24/2024 Travel 10/23/2024 Travel 10/22/2024 Travel 10/15/2024 Refill [facility] Hematology/BMT and Cellular Therapy Program [address] [address] New Mckinney MD 10/14/2024 Refill [facility] Hematology/BMT and Cellular Therapy Program [address] [address] New Mckinney MD 10/13/2024 Telephone [facility] Hematology/BMT and Cellular Therapy Program [address] [address] Zonia Hoffman, FAMILY COUNSELOR 10/13/2024 Travel 10/12/2024 Travel 10/11/2024 Travel 10/09/2024 Travel 10/08/2024 Travel 10/08/2024 Orders Only [facility] Hematology/BMT and Cellular Therapy Program 750 [facility], [address] [place] [phone] 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 research affiliate 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) 10/07/2024 Travel 09/30/2024 9:30 AM EDT Office Visit [facility] Hematology/BMT and Cellular Therapy Program 750 [facility], [facility] [place] [address] Zonia Hoffman, FAMILY COUNSELOR 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) 09/30/2024 9:00 AM EDT Clinical Support [facility] Hematology/BMT and Cellular Therapy Program 750 [facility], [facility] [place] [phone] Jyoti Kemp 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) 09/30/2024 Telephone [facility] Hematology/BMT and Cellular Therapy Program 750 [facility], [address] [place] [phone] Zoraida Good RN 09/30/2024 Travel 09/29/2024 Travel 09/28/2024 Travel 09/27/2024 Travel 09/26/2024 Travel 09/25/2024 Travel 09/24/2024 Travel 09/23/2024 Travel from Last 3 Months Immunizations Immunization [...] [facility] Contact Info) Description 12/30/2024 8:30 AM EDT Clinical Support [facility] Hematology/BMT and Cellular Therapy Program [address] [phone] 12/30/2024 9:00 AM EDT Office Visit [facility] Hematology/BMT and Cellular Therapy Program [address] [phone] Bibiana Sepulveda, FAMILY COUNSELOR 800 [facility] [address] [place] [phone] 12/30/2024 10:30 AM EDT Appointment [facility] 1 [address] [place] [address] 12/31/2024 3:00 PM EDT Appointment [facility] 1 [address] [place] [address] 01/01/2025 3:00 PM EDT Appointment [facility] 1 [address] [place] [address] 01/02/2025 2:00 PM EDT Appointment [facility] 1 [address] [place] [address] 01/03/2025 2:00 PM EDT Appointment [facility] 1 [address] [place] [address] 01/04/2025 2:00 PM EDT Appointment [facility] 1 [address] [place] [address] 01/05/2025 4:00 PM EDT Appointment [facility] 1 [address] [place] [address] Health Maintenance Due Date Last Done Comments [...] 03/21/2023 [facility]-Bone Density Scan 07/25/2024 07/25/2022, 023 [id number] Vaccine (4 - 2024- season) 2024 02/18/2021, 07/10/2020, 06/12/2020 [facility]-Influenza Vaccine [...] this topic Medical Devices Implanted Type Area Contact Center Associate Device Identifier Shelf Expiration Date Model / Serial / Lot Port Clearvue Power 8fr - [id number] Implanted:Qty: 1 on 01/21/2024 by Ness Sargent MD at [facility] [employer]-[id number] / / Procedures Procedure Name Priority Date/Time [...] values, rather than percentages. us Zonia Hoffman FAMILY COUNSELOR LAB BLOOD ORDERABLES Final Res ult [facility] [address] [place] [address] * (ABNORMAL) Comprehensive Metabolic Panel, Plasma (09/30/2024 [...] 09/30/2024 9:50 AM EDT us Zonia Hoffman FAMILY COUNSELOR LAB BLOOD ORDERABLES Final Res ult [facility] [address] [place] [address] * Hepatitis C Antibody w/Reflex to HCV Quant PCR (01/07/2024 8:42 AM EDT) Hepatitis C Antibody Negative Negative 01/07/2024 10:13 AM EDT [facility] Blood Venous blood specimen / Unknown Venipuncture / Unknown 01/07/2024 8:42 AM EDT 01/07/2024 9:25 AM EDT us New Mckinney MD LAB BLOOD ORDERABLES Final Re sult [facility] [address] [place] [address] from Last 3 Months or Most Recently Relevant to Health Maintenance Insurance MEDICARE [facility] Care Teams Canvas Shop Laborer Relationship Specialty Start Date End Date Jevon Vazquez MD [address] [place] [address] #1 #1 [place] JOSEP [id number] PCP - General 03/23/22
--- OUTSIDE RECORDS SUMMARY | 2024-12-22 09:09 | XMS_ITS | Encounter Summary ---
Author Organization Healthcare Address [address] [place] [address] Care Team Providers Care Ramp Supervisor Name Role Phone Jevon Vazquez MD Primary Care Provider [phone] Encounter Details Date Type Department Care Team [...] Hematology/BMT and Cellular Therapy Program [address] [address] 12/30/2024 9:00 AM EDT Office Visit [facility] Hematology/BMT and Cellular Therapy Program [address] [address] Bibiana Sepulveda, MIXED CROP FARMER 800 [facility] [address] [place] [phone] 12/30/2024 10:30 AM EDT Appointment [facility] 1 [address] [place] [address] 12/31/2024 3:00 PM EDT Appointment [facility] 1 [address] [place] [address] 01/01/2025 3:00 PM EDT Appointment [facility] 1 [address] [place] [address] 01/02/2025 2:00 PM EDT Appointment [facility] 1 [address] [place] [address] 01/03/2025 2:00 PM EDT Appointment [facility] 1 [address] [place] [address] 01/04/2025 2:00 PM EDT Appointment [facility] 1 [address] [place] [address] 01/05/2025 4:00 PM EDT Appointment [facility] 1 [address] [place] [address] documented as of this encounter Visit Diagnoses Not on filedocumented in this encounter Additional Health Concerns Assessment Noted Time A fall risk assessment has been complete d for the patient 09/30/2024 9:33 AM EDT A Body Mass Index follow-up plan has been documented for the patient 05/28/2024 1:52 PM EST documented as of this encounter Care Teams Ramp Supervisor Relationship Specialty Start Date End Date Jevon Vazquez MD [address] [place] [address] #1 #1 [place] [address] PCP - General 03/23/22 documented as of this encounter
[2024-12-22 09:13] LABS: Hematocrit 26.0 % (37.0-47.0); Hemoglobin 8.8 g/dL (12.2-16.2); Immature Granulocytes % 0 %; Mean Corpuscular HGB Conc 33.8 g/dL (31.8-35.4); Mean Corpuscular Hemoglobin 33.0 pg (27.0-31.2); Mean Corpuscular Volume 97.4 fl (81-99); Nucleated Red Blood Cells % 0 %; Red Blood Count 2.67 M/mm3 (4.20-5.40); Red Cell Distribution Width-SD 72.2 fL
[2024-12-22 09:17] LABS: Platelet Count 20 K/mm3 (142-424); White Blood Count 1.9 K/mm3 (4.8-10.8)
[2024-12-22 09:22] LABS: Alanine Aminotransferase 14 U/L (12-78); Albumin Level 3.7 g/dl (3.5-5.0); Albumin/Globulin Ratio 1.5 (1.1-1.8); Alkaline Phosphatase 43 U/L (38-126); Anion Gap 12.7 mEq/L (5-15); Aspartate Amino Transferase 35 U/L (14-36); Bilirubin,Total 0.6 mg/dl (0.2-1.3); Blood Urea Nitrogen 25 mg/dl (7-17); Calcium 9.2 mg/dl (8.4-10.2); Carbon Dioxide 22 mmol/L (22.0-30.0); Chloride 107 mmol/L (98-107); Creatinine,Serum 1.10 mg/dl (0.52-1.04); Estimated Glomerular Filt Rate 49 ml/min (>60); GFR (African American) 59 ML/MIN (>60); Globulin 2.4 g/dL (1.3-3.2); Glucose 137 mg/dl (74-100); Potassium 3.7 mmoL/L (3.5-5.1); Sodium 138 mmol/L (136-145); Total Protein,Serum 6.1 g/dl (6.3-8.2)
[2024-12-22] MEDS: SODIUM CHLORIDE 0.9% 10ML FLUSH SYRINGE 10 ML IV (09:25)
[2024-12-22 09:52] LABS: Anisocytosis 1+; Hypochromasia 1+; Macrocytosis 1+; Total Cells Counted 50
== END 2024-12-22 09:25 | disposition home or self-care (01) ==
LOC: INF 08:56
PROVIDERS: PCP Family Medicine; Visit Provider Internal Medicine Medical Oncology
DX: C92.00 Acute myeloblastic leukemia, not having achieved remission (principal)
CPT/HCPCS: 36591; 80053; 85007; 85025; J1642

== ENCOUNTER 2024-12-25 08:58 | Outpatient (CLI) | payer MEDICARE, BC, SELFPAY ==
[2024-12-25] VITALS (16 sets, daily range): BP systolic 114–137; BP diastolic 47–68; PULSE 69–77; RESP 18–20; TEMP 36.2–36.8; O2SAT 98–100
--- OUTSIDE RECORDS SUMMARY | 2024-12-25 09:11 | XMS_ITS | Encounter Summary ---
Author Organization Healthcare Address [address] [place] [address] Care Team Providers Care Plumbing Instructor Name Role Phone Jevon Vazquez MD Primary Care Provider [phone] Encounter Details Date Type Department Care Team [...] Hematology/BMT and Cellular Therapy Program [address] [address] 12/30/2024 9:00 AM EDT Office Visit [facility] Hematology/BMT and Cellular Therapy Program [address] [address] Bibiana Sepulveda, GAS METER PROVER 800 [facility] [address] [place] [address] 12/30/2024 10:30 AM EDT Appointment [facility] 1 [address] [place] [address] 12/31/2024 3:00 PM EDT Appointment [facility] 1 [address] [place] [address] 01/01/2025 3:00 PM EDT Appointment [facility] 1 [address] [place] [address] 01/02/2025 2:00 PM EDT Appointment [facility] 1 [address] [place] [address] 01/03/2025 2:00 PM EDT Appointment [facility] 1 [address] [place] [address] 01/04/2025 2:00 PM EDT Appointment [facility] 1 [address] [place] [address] 01/05/2025 4:00 PM EDT Appointment [facility] 1 [address] [place] [address] documented as of this encounter Visit Diagnoses Not on filedocumented in this encounter Additional Health Concerns Assessment Noted Time A fall risk assessment has been complete d for the patient 09/30/2024 9:33 AM EDT A Body Mass Index follow-up plan has been documented for the patient 05/28/2024 1:52 PM EST documented as of this encounter Care Teams Plumbing Instructor Relationship Specialty Start Date End Date Jevon Vazquez MD [address] [place] [address] #1 #1 [place] [address] PCP - General 03/23/22 documented as of this encounter
--- OUTSIDE RECORDS SUMMARY | 2024-12-25 09:11 | XMS_ITS | Encounter Summary ---
Author Organization [facility] Address [address] [place] [address] Care Team Providers Care Record Systems Analyst Name Role Phone Jevon Vazquez MD Primary Care Provider [phone] Reason for Visit * Reason Comments Med Refill Encounter Details Date Type Department Care Team ([facility] Contact Info) Description 11/08/2024 Refill [facility] Hematology/BMT and Cellular Therapy Program [address] [phone] New Mckinney MD [address] [facility] [address] [place] [phone] Social History Tobacco Use Types Packs/Day Years [...] Team ([facility] Contact Info) Description 12/30/2024 8:30 AM EDT Clinical Support [facility] Hematology/BMT and Cellular Therapy Program [address] [phone] 12/30/2024 9:00 AM EDT Office Visit [facility] Hematology/BMT and Cellular Therapy Program [address] [phone] Bibiana Sepulveda, AMBULATORY CARE COORDINATOR [address] [facility] [address] [place] [address] 12/30/2024 10:30 AM EDT Appointment [facility] 1 [address] [place] [address] 12/31/2024 3:00 PM EDT Appointment [facility] 1 [address] [place] [address] 01/01/2025 3:00 PM EDT Appointment [facility] 1 [address] [place] [address] 01/02/2025 2:00 PM EDT Appointment [facility] 1 [address] [place] [address] 01/03/2025 2:00 PM EDT Appointment [facility] 1 [address] [place] [address] 01/04/2025 2:00 PM EDT Appointment [facility] 1 [address] [place] [address] 01/05/2025 4:00 PM EDT Appointment [facility] 1 [address] [place] [address] documented as of this encounter Visit Diagnoses Not on filedocumented in this encounter Additional Health Concerns Assessment Noted Time A fall risk assessment has been complete d for the patient 09/30/2024 9:33 AM EDT A Body Mass Index follow-up plan has been documented for the patient 05/28/2024 1:52 PM EST documented as of this encounter Care Teams Record Systems Analyst Relationship Specialty Start Date End Date Jevon Vazquez MD [address] [place] [address] #1 #1 [place] [address] PCP - General 03/23/22 documented as of this encounter
--- OUTSIDE RECORDS SUMMARY | 2024-12-25 09:11 | XMS_ITS | Encounter Summary ---
Author Organization [facility] Address [address] [place] [address] Care Team Providers Care Low Pressure Boiler Operator Name Role Phone Jevon Vazquez MD Primary Care Provider [phone] Reason for Visit * Reason Comments Med Refill Encounter Details Date Type Department Care Team ([facility] Contact Info) Description 01/30/2024 Refill [facility] Hematology/BMT and Cellular Therapy Program [address] [phone] New Mckinney MD 800 [facility] [address] [place] [phone] Social History Tobacco Use Types Packs/Day Years [...] Team ([facility] Contact Info) Description 12/30/2024 8:30 AM EDT Clinical Support [facility] Hematology/BMT and Cellular Therapy Program [address] [place] [address] 12/30/2024 9:00 AM EDT Office Visit [facility] Hematology/BMT and Cellular Therapy Program [address] [phone] Bibiana Sepulveda, CYBERATHLETE [address] [facility] [address] [place] [address] 12/30/2024 10:30 AM EDT Appointment [facility] 1 [address] [place] [address] 12/31/2024 3:00 PM EDT Appointment [facility] 1 [address] [place] [address] 01/01/2025 3:00 PM EDT Appointment [facility] 1 [address] [place] [address] 01/02/2025 2:00 PM EDT Appointment [facility] 1 [address] [place] [address] 01/03/2025 2:00 PM EDT Appointment [facility] 1 [address] [place] [address] 01/04/2025 2:00 PM EDT Appointment [facility] 1 [address] [place] [address] 01/05/2025 4:00 PM EDT Appointment [facility] 1 [address] [place] [address] documented as of this encounter Visit Diagnoses [...] Date End Date Jevon Vazquez MD [address] [place] [address] #1 #1 [place] [address] PCP - General 03/23/22 documented as of this encounter
--- OUTSIDE RECORDS SUMMARY | 2024-12-25 09:11 | XMS_ITS | Encounter Summary ---
Author Organization Healthcare Address [address] [place] [address] Care Team Providers Care Hanger Off Name Role Phone Jevon Vazquez MD Primary Care Provider [phone] Encounter Details Date Type Department Care Team (Latest Contact Info) Description 12/23/2024 Travel Social History Tobacco Use Types Packs/Day [...] Hematology/BMT and Cellular Therapy Program [address] [address] 12/30/2024 9:00 AM EDT Office Visit [facility] Hematology/BMT and Cellular Therapy Program [address] [address] Bibiana Sepulveda, CONSULTATIVE SALES ASSOCIATE 800 [facility] [address] [place] [address] 12/30/2024 10:30 AM EDT Appointment [facility] 1 [address] [place] [address] 12/31/2024 3:00 PM EDT Appointment [facility] 1 [address] [place] [address] 01/01/2025 3:00 PM EDT Appointment [facility] 1 [address] [place] [address] 01/02/2025 2:00 PM EDT Appointment [facility] 1 [address] [place] [address] 01/03/2025 2:00 PM EDT Appointment [facility] 1 [address] [place] [address] 01/04/2025 2:00 PM EDT Appointment [facility] 1 [address] [place] [address] 01/05/2025 4:00 PM EDT Appointment [facility] 1 [address] [place] [address] documented as of this encounter Visit Diagnoses Not on filedocumented in this encounter Additional Health Concerns Assessment Noted Time A fall risk assessment has been complete d for the patient 09/30/2024 9:33 AM EDT A Body Mass Index follow-up plan has been documented for the patient 05/28/2024 1:52 PM EST documented as of this encounter Care Teams Hanger Off Relationship Specialty Start Date End Date Jevon Vazquez MD [address] [place] [address] #1 #1 [place] [address] PCP - General 03/23/22 documented as of this encounter
--- OUTSIDE RECORDS SUMMARY | 2024-12-25 09:11 | XMS_ITS | Encounter Summary ---
Author Organization Healthcare Address [address] [place] [address] Care Team Providers Care Washcloth Folder Name Role Phone Jevon Vazquez MD Primary Care Provider [phone] Encounter Details Date Type Department Care Team ([facility] Contact Info) Description 12/11/2024 Telephone [facility] Hematology/BMT and Cellular Therapy Program [address] [address] New Mckinney MD 800 [facility] [address] [place] [phone] Social History Tobacco Use Types Packs/Day Years [...] PM EDT Rn uploaded recent labs to [facility] and rescheduled appointments to 12/30. RN returned call to patient with updated plan of care and schedule. documented in this encounter Plan of Treatment Upcoming Encounters Date Type Department Care Team (Late Contact Info) Description 12/30/2024 8:30 AM EDT Clinical Support [facility] Hematology/BMT and Cellular Therapy Program [address] [address] 12/30/2024 9:00 AM EDT Office Visit [facility] Hematology/BMT and Cellular Therapy Program [address] [place] [address] Bibiana Sepulveda, GAS OR WATER METER INSTALLER 800 [facility] [address] [place] [address] 12/30/2024 10:30 AM EDT Appointment [facility] 1 [address] [place] [address] 12/31/2024 3:00 PM EDT Appointment [facility] 1 [address] [place] [address] 01/01/2025 3:00 PM EDT Appointment [facility] 1 [address] [place] [address] 01/02/2025 2:00 PM EDT Appointment [facility] 1 [address] [place] [address] 01/03/2025 2:00 PM EDT Appointment [facility] 1 [address] [place] [address] 01/04/2025 2:00 PM EDT Appointment [facility] 1 [address] [place] [address] 01/05/2025 4:00 PM EDT Appointment [facility] 1 [address] [place] [address] documented as of this encounter Visit Diagnoses Not on filedocumented in this encounter Additional Health Concerns Assessment Noted Time A fall risk assessment has been complete d for the patient 09/30/2024 9:33 AM EDT A Body Mass Index follow-up plan has been documented for the patient 05/28/2024 1:52 PM EST documented as of this encounter Care Teams Washcloth Folder Relationship Specialty Start Date End Date Jevon Vazquez MD [address] [place] [address] #1 #1 [place] [address] PCP - General 03/23/22 documented as of this encounter
--- OUTSIDE RECORDS SUMMARY | 2024-12-25 09:11 | XMS_ITS | Encounter Summary ---
Author Organization [facility] Address [address] [place] [address] Care Team Providers Care Wrapper Selector Name Role Phone Jevon Vazquez MD Primary Care Provider [phone] Reason for Visit * Reason Comments Med Refill Encounter Details Date Type Department Care Team ([facility] Contact Info) Description 12/09/2024 Refill [facility] Hematology/BMT and Cellular Therapy Program [address] [phone] Zonia Hoffman, OIL BAY TECHNICIAN 800 [facility] [address] [place] [phone] Social History Tobacco Use Types Packs/Day Years [...] Team ([facility] Contact Info) Description 12/30/2024 8:30 AM EDT Clinical Support [facility] Hematology/BMT and Cellular Therapy Program [address] [phone] 12/30/2024 9:00 AM EDT Office Visit [facility] Hematology/BMT and Cellular Therapy Program [address] [phone] Bibiana Sepulveda, OIL BAY TECHNICIAN [address] [facility] [address] [place] [address] 12/30/2024 10:30 AM EDT Appointment [facility] 1 [address] [place] [address] 12/31/2024 3:00 PM EDT Appointment [facility] 1 [address] [place] [address] 01/01/2025 3:00 PM EDT Appointment [facility] 1 [address] [place] [address] 01/02/2025 2:00 PM EDT Appointment [facility] 1 [address] [place] [address] 01/03/2025 2:00 PM EDT Appointment [facility] 1 [address] [place] [address] 01/04/2025 2:00 PM EDT Appointment [facility] 1 [address] [place] [address] 01/05/2025 4:00 PM EDT Appointment [facility] 1 [address] [place] [address] documented as of this encounter Visit Diagnoses Not on filedocumented in this encounter Additional Health Concerns Assessment Noted Time A fall risk assessment has been complete d for the patient 09/30/2024 9:33 AM EDT A Body Mass Index follow-up plan has been documented for the patient 05/28/2024 1:52 PM EST documented as of this encounter Care Teams Wrapper Selector Relationship Specialty Start Date End Date Jevon Vazquez MD [address] [place] [address] #1 #1 JOSEP [place] [id number] PCP - General 03/23/22 documented as of this encounter
--- OUTSIDE RECORDS SUMMARY | 2024-12-25 09:11 | XMS_ITS | Encounter Summary ---
Author Organization Healthcare Address [address] [place] [address] Care Team Providers Care Ex Chef Name Role Phone Jevon Vazquez MD Primary Care Provider [phone] Encounter Details Date Type Department Care Team [...] Hematology/BMT and Cellular Therapy Program [address] [address] 12/30/2024 9:00 AM EDT Office Visit [facility] Hematology/BMT and Cellular Therapy Program [address] [address] Bibiana Sepulveda, SAFETY COUNSELOR 800 [facility] [address] [place] [address] 12/30/2024 10:30 AM EDT Appointment [facility] 1 [address] [place] [address] 12/31/2024 3:00 PM EDT Appointment [facility] 1 [address] [place] [address] 01/01/2025 3:00 PM EDT Appointment [facility] 1 [address] [place] [address] 01/02/2025 2:00 PM EDT Appointment [facility] 1 [address] [place] [address] 01/03/2025 2:00 PM EDT Appointment [facility] 1 [address] [place] [address] 01/04/2025 2:00 PM EDT Appointment [facility] 1 [address] [place] [address] 01/05/2025 4:00 PM EDT Appointment [facility] 1 [address] [place] [address] documented as of this encounter Visit Diagnoses Not on filedocumented in this encounter Additional Health Concerns Assessment Noted Time A fall risk assessment has been complete d for the patient 09/30/2024 9:33 AM EDT A Body Mass Index follow-up plan has been documented for the patient 05/28/2024 1:52 PM EST documented as of this encounter Care Teams Ex Chef Relationship Specialty Start Date End Date Jevon Vazquez MD [address] [place] [address] #1 #1 [place] [address] PCP - General 03/23/22 documented as of this encounter
--- OUTSIDE RECORDS SUMMARY | 2024-12-25 09:11 | XMS_ITS | Encounter Summary ---
Author Organization Healthcare Address [address] [place] [address] Care Team Providers Care Metallurgical Analyst Name Role Phone Jevon Vazquez MD Primary Care Provider [phone] Encounter Details Date Type Department Care Team (Late Contact Info) Description 11/27/2024 Telephone [facility] CC Hematology/BMT and Cellular Therapy Program [address] [address] Zonia Hoffman, EMERGENCY MEDICINE PHYSICIAN ASSISTANT 800 [facility] [address] [place] [address] Social History Tobacco Use Types Packs/Day Years [...] CC Hematology/BMT and Cellular Therapy Program 750 [facility] [place] [address] 12/30/2024 9:00 AM EDT Office Visit [facility]AV Hematology/BMT and Cellular Therapy Program 750 [facility], [facility] [place] [address] Bibiana Sepulveda, EMERGENCY MEDICINE PHYSICIAN ASSISTANT 800 [facility] [address] [place] [address] 12/30/2024 10:30 AM EDT Appointment [facility] 1 [address] [place] [address] 12/31/2024 3:00 PM EDT Appointment [facility] 1 [address] [place] [address] 01/01/2025 3:00 PM EDT Appointment [facility] 1 [address] [place] [address] 01/02/2025 2:00 PM EDT Appointment [facility] 1 [address] [place] [address] 01/03/2025 2:00 PM EDT Appointment [facility] 1 [address] [place] [address] 01/04/2025 2:00 PM EDT Appointment [facility] In[facility] 1 [address] [place] [address] 01/05/2025 4:00 PM EDT Appointment [facility] 1 [address] [place] [address] documented as of this encounter Visit Diagnoses Not on filedocumented in this encounter Additional Health Concerns Assessment Noted Time A fall risk assessment has been complete d for the patient 09/30/2024 9:33 AM EDT A Body Mass Index follow-up plan has been documented for the patient 05/28/2024 1:52 PM EST documented as of this encounter Care Teams Metallurgical Analyst Relationship Specialty Start Date End Date Jevon Vazquez MD [address] [place] [address] #1 #1 [place] [address] PCP - General 03/23/22 documented as of this encounter
--- OUTSIDE RECORDS SUMMARY | 2024-12-25 09:11 | XMS_ITS | Encounter Summary ---
Author Organization Healthcare Address [address] [place] [address] Care Team Providers Care Compressor Operator Adjuster Name Role Phone Jevon Vazquez MD [...] Hematology/BMT and Cellular Therapy Program [address] [address] 12/30/2024 9:00 AM EDT Office Visit [facility] CC Hematology/BMT and Cellular Therapy Program [address] [address] Bibiana Sepulveda, DIRECT SALES PROFESSIONAL 800 [facility] [address] [place] [address] 12/30/2024 10:30 AM EDT Appointment [facility] 1 [address] [place] [address] 12/31/2024 3:00 PM EDT Appointment [facility] 1 [address] [place] [address] 01/01/2025 3:00 PM EDT Appointment [facility] 1 [address] [place] [address] 01/02/2025 2:00 PM EDT Appointment [facility] 1 [address] [place] [address] 01/03/2025 2:00 PM EDT Appointment [facility] 1 [address] [place] [address] 01/04/2025 2:00 PM EDT Appointment [facility] 1 [address] [place] [address] 01/05/2025 4:00 PM EDT Appointment [facility] 1 [address] [place] [address] documented as of this encounter Visit Diagnoses Not on filedocumented in this encounter Additional Health Concerns Assessment Noted Time A fall risk assessment has been complete d for the patient 09/30/2024 9:33 AM EDT A Body Mass Index follow-up plan has been documented for the patient 05/28/2024 1:52 PM EST documented as of this encounter Care Teams Compressor Operator Adjuster Relationship Specialty Start Date End Date Jevon Vazquez MD [address] [place] [address] [address]1 [address]1 [place] [address] PCP - General 03/23/22 documented as of this encounter
--- OUTSIDE RECORDS SUMMARY | 2024-12-25 09:11 | XMS_ITS | Encounter Summary ---
Author Organization Healthcare Address [address] [place] [address] Care Team Providers Care Conditioner Tumbler Operator Name Role Phone Jevon Vazquez MD Primary Care Provider [phone] Encounter Details Date Type Department Care Team [...] Hematology/BMT and Cellular Therapy Program [address] [address] 12/30/2024 9:00 AM EDT Office Visit [facility] CC Hematology/BMT and Cellular Therapy Program [address] [address] Bibiana Sepulveda, CURB AND GUTTER LABORER 800 [facility] [address] [place] [address] 12/30/2024 10:30 AM EDT Appointment [facility] 1 [address] [place] [address] 12/31/2024 3:00 PM EDT Appointment [facility] 1 [address] [place] [address] 01/01/2025 3:00 PM EDT Appointment [facility] 1 [address] [place] [address] 01/02/2025 2:00 PM EDT Appointment [facility] 1 [address] [place] [address] 01/03/2025 2:00 PM EDT Appointment [facility] 1 [address] [place] [address] 01/04/2025 2:00 PM EDT Appointment [facility] 1 [address] [place] [address] 01/05/2025 4:00 PM EDT Appointment [facility] 1 [address] [place] [address] documented as of this encounter Visit Diagnoses Not on filedocumented in this encounter Additional Health Concerns Assessment Noted Time A fall risk assessment has been complete d for the patient 09/30/2024 9:33 AM EDT A Body Mass Index follow-up plan has been documented for the patient 05/28/2024 1:52 PM EST documented as of this encounter Care Teams Conditioner Tumbler Operator Relationship Specialty Start Date End Date Jevon Vazquez MD [address] [place] [address] #1 [address]1 [place] [address] PCP - General 03/23/22 documented as of this encounter
--- OUTSIDE RECORDS SUMMARY | 2024-12-25 09:11 | XMS_ITS | Encounter Summary ---
Author Organization Healthcare Address [address] [place] [address] Care Team Providers Care Heel Slicker Name Role Phone Jevon Vazquez MD Primary Care Provider [phone] Encounter Details Date Type Department Care Team (Latest Contact Info) Description 12/24/2024 Travel Social History Tobacco Use Types Packs/Day [...] Hematology/BMT and Cellular Therapy Program [address] [address] 12/30/2024 9:00 AM EDT Office Visit [facility] CC Hematology/BMT and Cellular Therapy Program [address] [address] Bibiana Sepulveda, MATERIAL RECLAIMER 800 [facility] [address] [place] [address] 12/30/2024 10:30 AM EDT Appointment [facility] 1 [address] [place] [address] 12/31/2024 3:00 PM EDT Appointment [facility] 1 [address] [place] [address] 01/01/2025 3:00 PM EDT Appointment [facility] 1 [address] [place] [address] 01/02/2025 2:00 PM EDT Appointment [facility] 1 [address] [place] [address] 01/03/2025 2:00 PM EDT Appointment [facility] 1 [address] [place] [address] 01/04/2025 2:00 PM EDT Appointment [facility] 1 [address] [place] [address] 01/05/2025 4:00 PM EDT Appointment [facility] 1 [address] [place] [address] documented as of this encounter Visit Diagnoses Not on filedocumented in this encounter Additional Health Concerns Assessment Noted Time A fall risk assessment has been complete d for the patient 09/30/2024 9:33 AM EDT A Body Mass Index follow-up plan has been documented for the patient 05/28/2024 1:52 PM EST documented as of this encounter Care Teams Heel Slicker Relationship Specialty Start Date End Date Jevon Vazquez MD [address] [place] [address] #1 [address]1 [place] [address] PCP - General 03/23/22 documented as of this encounter
--- OUTSIDE RECORDS SUMMARY | 2024-12-25 09:11 | XMS_ITS | Clinical Summary ---
Author Organization [facility] Address [address] [place] [address] Care Team Providers Care Screener And Blender Name Role Phone David Vazquez Primary Care Provider [phone] Allergies No known active allergies Medications atorvastatin [...] series) 2025 Medical Devices Implanted Type Area Instructor Ground Services Device Identifier Shelf Expiration Date Model / Serial / Lot Mis Ply Scr 6.5x50mm - [id number] Implanted:Qty : 1 on 01/30/2023 by Ivan Bartholomew MD at [facility] Screw N/A: Spine Lumbar [employer] [id number] / / Mis Ply Scr 6.5x45mm - [id number] Implanted:Qty : 3 on 01/30/2023 by Ivan Bartholomew MD at [facility] Screw N/A: Spine Lumbar [employer] [id number] / / Reline Mas Reduction Screw 7.5x45 - [id number] Implanted:Qty : 2 on 01/30/2023 by Ivan Bartholomew MD at [facility] Screw N/A: Spine Lumbar [employer] [id number] / / Grft Dbm Vesuvius Putty 5cc - [id number] Implanted:Qty : 1 on 01/30/2023 by Ivan Bartholomew MD at [facility] [employer] [id number] 04/20/2025 [id number] P / [id number] / Putty I-Factor 5.0cc - [id number] Implanted:Qty : 1 on 01/30/2023 by Ivan Bartholomew MD at [facility] N/A: Spine Lumbar [employer] 03/15/2025 [id number] / / [id number] Modulus Xlw [id number] 10 Degree - [id number] Implanted:Qty : 1 on 01/30/2023 by Ivan Bartholomew MD at [facility] N/A: Spine Lumbar [employer] [id number] / / [id number] Modulus Xlw [id number] - [id number] Implanted:Qty : 1 on 01/30/2023 by Ivan Bartholomew MD at [facility] N/A: Spine Lumbar [employer] 09/28/2027 [id number] / / [id number] Reln Lock Scr 5.5mm Opn Tulip - [id number] Implanted:Qty : 6 on 01/30/2023 by Ivan Bartholomew MD at [facility] N/A: Spine Lumbar [employer] [id number] / / Reln Mas Ti Petar 5.5x70mm - [id number] Implanted:Qty : 2 on 01/30/2023 by Ivan Bartholomew MD at [facility] N/A: Spine Lumbar [employer] [id number] / / Procedures Procedure Name Priority Date/Time [...] 4.0 - 5.6 % [facility] Comment: Reference Ranges for [...] Glycohemoglobin Standardization program (NGSP) and [facility] Estimated Average Glucose 126(H) 68 - 114 mg/dL [facility] Whole Blood (Blood) 01/24/2023 2:32 PM EDT 01/24/2023 6:00 PM EDT us Ivan Bartholomew MD CHEMISTRY ORDERABLES Fin al Result [facility] [address] * (ABNORMAL) BASIC METABOLIC PANEL (BMP=EP1) (01/24/2023 2:32 PM EDT) Sodium 141 135 - 146 mmol/L [facility] Potassium 4.8 3.5 - 5.1 mmol/L [facility] Chloride 107 98 - 110 mmol/L [facility] CO2 24 22 - 29 mmol/L [facility] Anion Gap 10 5 - 13 mmol/L [facility] Comment:Anion gap calculatio n does not include potassium (K+) value. BUN 17 7 - 25 mg/dL [facility] Creatinine 1.20 0.50 - 1.20 mg/dL [facility] Glucose 125(H) 71 - 99 mg/dL [facility] Comment:Reference range (71- 99 mg/dL) refers only to fasting samples, and does not apply to non-fasting samples. eGFR CKD-EPI 2020 48 See Note [facility] Comment: eGFR calculated with 2020 CKD-EPI equation using creatinine, patient's age and gender. Other factors, especially muscle mass, may affect accuracy and need to be considered. Patient values should be interpreted as a trend. The reference interval is >60 mL/min/1.73m2. Calcium 10.3 8.5 - 10.5 mg/dL [facility] BUN/Creatinine Ratio 14 [facility] Serum 01/24/2023 2:32 PM EDT 01/24/2023 5:54 PM EDT us Lexi SUAREZ CHEMISTRY ORDERABLES Final Resu lt [facility] [address] from Last 3 Months or Most Recently Relevant to Health Maintenance Insurance MEDICARE PART A [facility] [address] [address] [place] [address] ANTH Advance Directives For more information, please contact: [phone] * Full Code (Latest Code Status on File) Date Activated Date Inactivated Comments 01/30/2023 9:13 AM No automated chest compression devices for [facility] Patients Care Teams Screener And Blender Relationship Specialty Start Date End Date David Vazquez [address] [place] [id number] PCP - General 01/24/23
--- OUTSIDE RECORDS SUMMARY | 2024-12-25 09:11 | XMS_ITS | Encounter Summary ---
Author Organization Healthcare Address [address] [place] [address] Care Team Providers Care Printing Plate Maker Name Role Phone Jevon Vazquez MD Primary Care Provider [phone] Encounter Details Date Type Department Care Team [...] Hematology/BMT and Cellular Therapy Program [address] [address] 12/30/2024 9:00 AM EDT Office Visit [facility] CC Hematology/BMT and Cellular Therapy Program [address] [address] Bibiana Sepulveda, WATER ANALYST 800 [facility] [address] [place] [address] 12/30/2024 10:30 AM EDT Appointment [facility] 1 [address] [place] [address] 12/31/2024 3:00 PM EDT Appointment [facility] 1 [address] [place] [address] 01/01/2025 3:00 PM EDT Appointment [facility] 1 [address] [place] [address] 01/02/2025 2:00 PM EDT Appointment [facility] 1 [address] [place] [address] 01/03/2025 2:00 PM EDT Appointment [facility] 1 [address] [place] [address] 01/04/2025 2:00 PM EDT Appointment [facility] 1 [address] [place] [address] 01/05/2025 4:00 PM EDT Appointment [facility] 1 [address] [place] [address] documented as of this encounter Visit Diagnoses Not on filedocumented in this encounter Additional Health Concerns Assessment Noted Time A fall risk assessment has been complete d for the patient 09/30/2024 9:33 AM EDT A Body Mass Index follow-up plan has been documented for the patient 05/28/2024 1:52 PM EST documented as of this encounter Care Teams Printing Plate Maker Relationship Specialty Start Date End Date Jevon Vazquez MD [address] [place] [address] #1 [address]1 [place] [address] PCP - General 03/23/22 documented as of this encounter
--- OUTSIDE RECORDS SUMMARY | 2024-12-25 09:11 | XMS_ITS | Encounter Summary ---
Author Organization [facility] Address [address] [place] [address] Care Team Providers Care Supervisor Beehive Kiln Name Role Phone Jevon Vazquez MD Primary Care Provider [phone] Encounter Details Date Type Department Care Team ([facility] Contact Info) Description 10/29/2024 Refill [facility] CC Hematology/BMT and Cellular Therapy Program [address] [address] Zonia Hoffman, BUILD AND RELEASE MANAGER 800 [facility] [address] [place] [address] Acute myeloid leukemia not having achieved remission [...] Upcoming Encounters Date Type Department Care Team ([facility] Contact Info) Description 12/30/2024 8:30 AM EDT Clinical Support [facility] CC Hematology/BMT and Cellular Therapy Program [address] [address] 12/30/2024 9:00 AM EDT Office Visit [facility] CC Hematology/BMT and Cellular Therapy Program [address] [place] [address] Bibiana Sepulveda, BUILD AND RELEASE MANAGER [address] [facility] [address] [place] [address] 12/30/2024 10:30 AM EDT Appointment [facility] 1 [address] [place] [address] 12/31/2024 3:00 PM EDT Appointment [facility] 1 [address] [place] [address] 01/01/2025 3:00 PM EDT Appointment [facility] 1 [address] [place] [address] 01/02/2025 2:00 PM EDT Appointment [facility] 1 [address] [place] [address] 01/03/2025 2:00 PM EDT Appointment [facility] 1 [address] [place] [address] 01/04/2025 2:00 PM EDT Appointment [facility] 1 [address] [place] [address] 01/05/2025 4:00 PM EDT Appointment [facility] 1 [address] [place] [address] documented as of this encounter Visit Diagnoses [...] as of this encounter Care Teams Supervisor Beehive Kiln Relationship Specialty Start Date End Date Jevon Vazquez MD [address] [place] [address] #1 #1 [place] [address] PCP - General 03/23/22 documented as of this encounter
--- OUTSIDE RECORDS SUMMARY | 2024-12-25 09:11 | XMS_ITS | Encounter Summary ---
Author Organization Healthcare Address [address] [place] [address] Care Team Providers Care Laser Engraver Name Role Phone Jevon Vazquez MD Primary Care Provider [phone] Encounter Details Date Type Department Care Team ([facility] st Contact Info) Description 10/27/2024 Telephone [facility] CC Hematology/BMT and Cellular Therapy Program [address] [address] Zonia Hoffman, TEXTILE SCIENCE TECHNICIAN 800 [facility] [address] [place] [address] Social History Tobacco Use Types Packs/Day Years [...] and her new appts will be on Plan B Funding. She verbalizes understanding. * Telephone Encounter - [...] Hematology/BMT and Cellular Therapy Program [address] [address] 12/30/2024 9:00 AM EDT Office Visit PAV Hematology/BMT and Cellular Therapy Program [address] [address] Bibiana Sepulveda, TEXTILE SCIENCE TECHNICIAN 800 [facility] [address] [place] [address] 12/30/2024 10:30 AM EDT Appointment [facility] 1 [address] [place] [address] 12/31/2024 3:00 PM EDT Appointment [facility] 1 [address] [place] [address] 01/01/2025 3:00 PM EDT Appointment [facility] 1 [address] [place] [address] 01/02/2025 2:00 PM EDT Appointment [facility] 1 [address] [place] [address] 01/03/2025 2:00 PM EDT Appointment [facility] 1 [address] [place] [address] 01/04/2025 2:00 PM EDT Appointment [facility] 1 [address] [place] [address] 01/05/2025 4:00 PM EDT Appointment [facility] 1 [address] [place] [address] documented as of this encounter Visit Diagnoses Not on filedocumented in this encounter Additional Health Concerns Assessment Noted Time A fall risk assessment has been complete d for the patient 09/30/2024 9:33 AM EDT A Body Mass Index follow-up plan has been documented for the patient 05/28/2024 1:52 PM EST documented as of this encounter Care Teams Laser Engraver Relationship Specialty Start Date End Date Jevon Vazquez MD [address] [place] [address] #1 #1 [place] [address] PCP - General 03/23/22 documented as of this encounter
--- OUTSIDE RECORDS SUMMARY | 2024-12-25 09:11 | XMS_ITS | Encounter Summary ---
Author Organization Healthcare Address [address] [place] [address] Care Team Providers Care Smooth And Burr Worker Composites Name Role Phone Jevon Vazquez MD Primary Care Provider [phone] Encounter Details Date Type Department Care Team [...] Hematology/BMT and Cellular Therapy Program [address] [address] 12/30/2024 9:00 AM EDT Office Visit [facility] CC Hematology/BMT and Cellular Therapy Program [address] [address] Bibiana Sepulveda, ANTENNA RIGGER 800 [facility] [address] [place] [address] 12/30/2024 10:30 AM EDT Appointment [facility] 1 [address] [place] [address] 12/31/2024 3:00 PM EDT Appointment [facility] 1 [address] [place] [address] 01/01/2025 3:00 PM EDT Appointment [facility] 1 [address] [place] [address] 01/02/2025 2:00 PM EDT Appointment [facility] 1 [address] [place] [address] 01/03/2025 2:00 PM EDT Appointment [facility] 1 [address] [place] [address] 01/04/2025 2:00 PM EDT Appointment [facility] 1 [address] [place] [address] 01/05/2025 4:00 PM EDT Appointment [facility] 1 [address] [place] [address] documented as of this encounter Visit Diagnoses Not on filedocumented in this encounter Additional Health Concerns Assessment Noted Time A fall risk assessment has been complete d for the patient 09/30/2024 9:33 AM EDT A Body Mass Index follow-up plan has been documented for the patient 05/28/2024 1:52 PM EST documented as of this encounter Care Teams Smooth And Burr Worker Composites Relationship Specialty Start Date End Date Jevon Vazquez MD [address] [place] [address] #1 [address]1 [place] [address] PCP - General 03/23/22 documented as of this encounter
--- OUTSIDE RECORDS SUMMARY | 2024-12-25 09:11 | XMS_ITS ---
Author Organization [facility] Address [address] [place] [address] Care Team Providers Care Obstetrics/Gynecology Nurse Name Role Phone Jevon Vazquez MD Primary Care Provider [phone] Active Problems Problem Noted Date Diagnosed Date [...] Administration for Outpatient* Plan Start Date:02/07/2024 Plan Provider:Nwe Mckinney MD Linked Problems Acute myeloid leukemia [...]
--- OUTSIDE RECORDS SUMMARY | 2024-12-25 09:11 | XMS_ITS | Encounter Summary ---
Author Organization Healthcare Address [address] [place] [address] Care Team Providers Care Customer Engineering Specialist Name Role Phone Jevon Vazquez MD Primary Care Provider [phone] Encounter Details Date Type Department Care Team [...] Hematology/BMT and Cellular Therapy Program [address] [address] 12/30/2024 9:00 AM EDT Office Visit [facility] Hematology/BMT and Cellular Therapy Program [address] [address] Bibiana Sepulveda, SENIOR CONTRACTS ADMINISTRATOR 800 [facility] [address] [place] [address] 12/30/2024 10:30 AM EDT Appointment [facility] 1 [address] [place] [address] 12/31/2024 3:00 PM EDT Appointment [facility] 1 [address] [place] [address] 01/01/2025 3:00 PM EDT Appointment [facility] 1 [address] [place] [address] 01/02/2025 2:00 PM EDT Appointment [facility] 1 [address] [place] [address] 01/03/2025 2:00 PM EDT Appointment [facility] 1 [address] [place] [address] 01/04/2025 2:00 PM EDT Appointment [facility] 1 [address] [place] [address] 01/05/2025 4:00 PM EDT Appointment [facility] 1 [address] [place] [address] documented as of this encounter Visit Diagnoses Not on filedocumented in this encounter Additional Health Concerns Assessment Noted Time A fall risk assessment has been complete d for the patient 09/30/2024 9:33 AM EDT A Body Mass Index follow-up plan has been documented for the patient 05/28/2024 1:52 PM EST documented as of this encounter Care Teams Customer Engineering Specialist Relationship Specialty Start Date End Date Jevon Vazquez MD [address] [place] [address] #1 [address]1 [place] [address] PCP - General 03/23/22 documented as of this encounter
--- OUTSIDE RECORDS SUMMARY | 2024-12-25 09:11 | XMS_ITS | Encounter Summary ---
Author Organization Healthcare Address [address] [place] [address] Care Team Providers Care Molder Punch Name Role Phone Jevon Vazquez MD Primary Care Provider [phone] Encounter Details Date Type Department Care Team [...] Hematology/BMT and Cellular Therapy Program [address] [address] 12/30/2024 9:00 AM EDT Office Visit [facility] Hematology/BMT and Cellular Therapy Program [address] [phone] Bibiana Sepulveda, FREIGHT RECEIVER 800 [facility] [address] [place] [phone] 12/30/2024 10:30 AM EDT Appointment [facility] 1 [address] [place] [address] 12/31/2024 3:00 PM EDT Appointment [facility] 1 [address] [place] [address] 01/01/2025 3:00 PM EDT Appointment [facility] 1 [address] [place] [address] 01/02/2025 2:00 PM EDT Appointment [facility] 1 [address] [place] [address] 01/03/2025 2:00 PM EDT Appointment [facility] 1 [address] [place] [address] 01/04/2025 2:00 PM EDT Appointment [facility] 1 [address] [place] [address] 01/05/2025 4:00 PM EDT Appointment [facility] 1 [address] [place] [address] documented as of this encounter Visit Diagnoses Not on filedocumented in this encounter Additional Health Concerns Assessment Noted Time A fall risk assessment has been complete d for the patient 09/30/2024 9:33 AM EDT A Body Mass Index follow-up plan has been documented for the patient 05/28/2024 1:52 PM EST documented as of this encounter Care Teams Molder Punch Relationship Specialty Start Date End Date Jevon Vazquez MD [address] [place] [address] [address]1 [address]1 [place] [address] PCP - General 03/23/22 documented as of this encounter
--- OUTSIDE RECORDS SUMMARY | 2024-12-25 09:12 | XMS_ITS | Encounter Summary ---
Author Organization Healthcare Address [address] [place] [address] Care Team Providers Care Rate Clerk Name Role Phone Jevon Vazquez MD Primary Care Provider [phone] Encounter Details Date Type Department Care Team ([facility] st Contact Info) Description 10/28/2024 Telephone [facility] Hematology/BMT and Cellular Therapy Program [address] [address] Zonia Hoffman, ADJUSTER 800 [facility] [address] [place] [phone] Social History Tobacco Use Types Packs/Day Years [...] go over her labs results Callback number: [phone] documented in this encounter Plan of Treatment Upcoming Encounters Date Type Department Care Team (Late st Contact Info) Description 12/30/2024 8:30 AM EDT Clinical Support [facility] Hematology/BMT and Cellular Therapy Program 750 [facility], [address] [place] [phone] 12/30/2024 9:00 AM EDT Office Visit [facility] Hematology/BMT and Cellular Therapy Program 750 [facility], [address] [place] [phone] Bibiana Sepulveda, ADJUSTER 800 [facility] [address] [place] [phone] 12/30/2024 10:30 AM EDT Appointment [facility] Infusion Clinic 1 [address] [place] [address] 12/31/2024 3:00 PM EDT Appointment [facility] 1 [address] [place] [address] 01/01/2025 3:00 PM EDT Appointment [facility] 1 [address] [place] [address] 01/02/2025 2:00 PM EDT Appointment [facility] Infusion Clinic 1 [address] [place] [address] 01/03/2025 2:00 PM EDT Appointment [facility] 1 [address] [place] [address] 01/04/2025 2:00 PM EDT Appointment [facility] 1 [address] [place] [address] 01/05/2025 4:00 PM EDT Appointment [facility] 1 [address] [place] [address] documented as of this encounter Visit Diagnoses Not on filedocumented in this encounter Additional Health Concerns Assessment Noted Time A fall risk assessment has been complete d for the patient 09/30/2024 9:33 AM EDT A Body Mass Index follow-up plan has been documented for the patient 05/28/2024 1:52 PM EST documented as of this encounter Care Teams Rate Clerk Relationship Specialty Start Date End Date Jevon Vazquez MD [address] [place] [address] [address]1 [address]1 [place] [id number] PCP - General 03/23/22 documented as of this encounter
--- OUTSIDE RECORDS SUMMARY | 2024-12-25 09:12 | XMS_ITS | Encounter Summary ---
Author Organization Healthcare Address [address] [place] [address] Care Team Providers Care Science Faculty Member Name Role Phone Jevon Vazquez MD Primary Care Provider [phone] Encounter Details Date Type Department Care Team [...] Hematology/BMT and Cellular Therapy Program [address] [address] 12/30/2024 9:00 AM EDT Office Visit [facility] Hematology/BMT and Cellular Therapy Program [address] [address] Bibiana Sepulveda, RN RADIOLOGY 800 [facility] [address] [place] [phone] 12/30/2024 10:30 AM EDT Appointment [facility] 1 [address] [place] [address] 12/31/2024 3:00 PM EDT Appointment [facility] 1 [address] [place] [address] 01/01/2025 3:00 PM EDT Appointment [facility] 1 [address] [place] [address] 01/02/2025 2:00 PM EDT Appointment [facility] 1 [address] [place] [address] 01/03/2025 2:00 PM EDT Appointment [facility] 1 [address] [place] [address] 01/04/2025 2:00 PM EDT Appointment [facility] 1 [address] [place] [address] 01/05/2025 4:00 PM EDT Appointment [facility] 1 [address] [place] [address] documented as of this encounter Visit Diagnoses Not on filedocumented in this encounter Additional Health Concerns Assessment Noted Time A fall risk assessment has been complete d for the patient 09/30/2024 9:33 AM EDT A Body Mass Index follow-up plan has been documented for the patient 05/28/2024 1:52 PM EST documented as of this encounter Care Teams Science Faculty Member Relationship Specialty Start Date End Date Jevon Vazquez MD [address] [place] [address] [address]1 [address]1 [place] [address] PCP - General 03/23/22 documented as of this encounter
--- OUTSIDE RECORDS SUMMARY | 2024-12-25 09:12 | XMS_ITS | Clinical Summary ---
Author Organization [facility] Address [address] [place] [address] Care Team Providers Care Quality Assurance Supervisor Chassis Name Role Phone Jevon Vazquez MD Primary Care Provider [phone] Allergies No known active allergies Medications amLODIPine [...] Encounters Date Type Department Care Team Description 12/24/2024 Travel 12/23/2024 Travel 12/11/2024 Telephone [facility] Hematology/BMT and Cellular Therapy Program [address] [place] [phone] New Mckinney MD 12/10/2024 Travel 12/09/2024 Refill [facility] Hematology/BMT and Cellular Therapy Program [address] [place] [phone] Zonia Hoffman, SUPERVISOR POLICY CHANGE CLERKS 11/27/2024 Telephone [facility] Hematology/BMT and Cellular Therapy Program [address] [place] [phone] Zonia Hoffman, SUPERVISOR POLICY CHANGE CLERKS 11/26/2024 Travel 11/25/2024 Travel 11/24/2024 Travel 11/23/2024 Travel 11/22/2024 Travel 11/13/2024 Orders Only [facility] Hematology/BMT and Cellular Therapy Program [address] [place] [phone] 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, oracle soa 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) 11/12/2024 Travel 11/12/2024 Telephone [facility] Hematology/BMT and Cellular Therapy Program [address] [place] [address], [place] [phone] Zonia Hoffman, SUPERVISOR POLICY CHANGE CLERKS 11/11/2024 Travel 11/10/2024 Travel 11/09/2024 Travel 11/08/2024 Travel 11/08/2024 Refill [facility] Hematology/BMT and Cellular Therapy Program 750 [facility], [address] [place] [address] [place] [phone] New Mckinney MD 11/07/2024 Travel 10/29/2024 Refill [facility] Hematology/BMT and Cellular Therapy Program [address] [place] [address] Zonia Hoffman, SUPERVISOR POLICY CHANGE CLERKS 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); Immunosuppressed status (CMS/HCC) 10/28/2024 Telephone [facility] Hematology/BMT and Cellular Therapy Program [address] [place] [address] Zonia Hoffman, SUPERVISOR POLICY CHANGE CLERKS 10/27/2024 Telephone [facility] Hematology/BMT and Cellular Therapy Program 750 [facility], [address] [place] [address] [place] [address] Zonia Hoffman, SUPERVISOR POLICY CHANGE CLERKS 10/27/2024 Travel 10/26/2024 Travel 10/24/2024 Travel 10/23/2024 Travel 10/22/2024 Travel 10/15/2024 Refill [facility] Hematology/BMT and Cellular Therapy Program [address] [place] [phone] New Mckinney MD 10/14/2024 Refill [facility] Hematology/BMT and Cellular Therapy Program [address] [place] [address] New Mckinney MD 10/13/2024 Telephone [facility] Hematology/BMT and Cellular Therapy Program [address] [place] [address] Zonia Hoffman, SUPERVISOR POLICY CHANGE CLERKS 10/13/2024 Travel 10/12/2024 Travel 10/11/2024 Travel 10/09/2024 Travel 10/08/2024 Travel 10/08/2024 Orders Only [facility] Hematology/BMT and Cellular Therapy Program 750 [facility], [address] [place] [phone] 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 oracle soa 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) 10/07/2024 Travel 09/30/2024 9:30 AM EDT Office Visit [facility] Hematology/BMT and Cellular Therapy Program 750 [facility], [address] [place] [phone] Zonia Hoffman, SUPERVISOR POLICY CHANGE CLERKS 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) 09/30/2024 9:00 AM EDT Clinical Support [facility] Hematology/BMT and Cellular Therapy Program [address] [place] [address], [address] [place] [phone] Jyoti Kemp 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) 09/30/2024 Telephone [facility] Hematology/BMT and Cellular Therapy Program 750 [facility], [address] [place] [phone] Zoraida Good RN 09/30/2024 Travel 09/29/2024 Travel 09/28/2024 Travel 09/27/2024 Travel 09/26/2024 Travel 09/25/2024 Travel 09/24/2024 Travel from Last 3 Months Immunizations Immunization [...] Team ([facility] st Contact Info) Description 12/30/2024 8:30 AM EDT Clinical Support [facility] Hematology/BMT and Cellular Therapy Program [address] [address] 12/30/2024 9:00 AM EDT Office Visit [facility] Hematology/BMT and Cellular Therapy Program [address] [address] Bibiana Sepulveda, SUPERVISOR POLICY CHANGE CLERKS 800 [facility] [address] [place] [phone] 12/30/2024 10:30 AM EDT Appointment [facility] 1 [address] [place] [address] 12/31/2024 3:00 PM EDT Appointment [facility] 1 [address] [place] [address] 01/01/2025 3:00 PM EDT Appointment [facility] 1 [address] [place] [address] 01/02/2025 2:00 PM EDT Appointment [facility] 1 [address] [place] [address] 01/03/2025 2:00 PM EDT Appointment [facility] 1 [address] [place] [address] 01/04/2025 2:00 PM EDT Appointment [facility] 1 [address] [place] [address] 01/05/2025 4:00 PM EDT Appointment [facility] 1 [address] [place] [address] Health Maintenance Due Date Last Done Comments [...] 03/21/2023 UKY-Bone Density Scan 07/25/2024 07/25/2022, 023 [id number] Vaccine (4 - 2024- season) 2024 02/18/2021, [...] this topic Medical Devices Implanted Type Area Tomographic Tech Device Identifier Shelf Expiration Date Model / Serial / Lot Port Clearvue Power 8fr - [id number] Implanted:Qty: 1 on 01/21/2024 by Ness Sargent MD at [id number] / / Procedures Procedure Name Priority Date/Time [...] [facility] [address] [place] [address] * (ABNORMAL) Comprehensive Metabolic Panel, Plasma (09/30/2024 [...] 09/30/2024 9:50 AM EDT us Zonia Hoffman SUPERVISOR POLICY CHANGE CLERKS LAB BLOOD ORDERABLES Final Res ult [facility] [address] [place] [address] * Hepatitis C Antibody w/Reflex to HCV Quant PCR (01/07/2024 8:42 AM EDT) Hepatitis C Antibody Negative Negative 01/07/2024 10:13 AM EDT [facility] Blood Venous blood specimen / Unknown Venipuncture / Unknown 01/07/2024 8:42 AM EDT 01/07/2024 9:25 AM EDT New Mckinney MD LAB BLOOD ORDERABLES Final Re sult [facility] [address] [place] [address] from Last 3 Months or Most Recently Relevant to Health Maintenance Insurance MEDICARE [facility] Care Teams Quality Assurance Supervisor Chassis Relationship Specialty Start Date End Date Jevon Vazquez MD [address] [place] [address] #1 #1 [place] [address] PCP - General 03/23/22
--- OUTSIDE RECORDS SUMMARY | 2024-12-25 09:12 | XMS_ITS | Encounter Summary ---
Author Organization Healthcare Address [address] [place] [address] Care Team Providers Care Certified Medical Coder Name Role Phone Jevon Vazquez MD Primary Care Provider [phone] Encounter Details Date Type Department Care Team [...] Hematology/BMT and Cellular Therapy Program [address] [address] 12/30/2024 9:00 AM EDT Office Visit [facility] Hematology/BMT and Cellular Therapy Program [address] [phone] Bibiana Sepulveda, CYLINDER WORKER 800 [facility] [address] [place] [phone] 12/30/2024 10:30 AM EDT Appointment [facility] 1 [address] [place] [address] 12/31/2024 3:00 PM EDT Appointment [facility] 1 [address] [place] [address] 01/01/2025 3:00 PM EDT Appointment [facility] 1 [address] [place] [address] 01/02/2025 2:00 PM EDT Appointment [facility] 1 [address] [place] [address] 01/03/2025 2:00 PM EDT Appointment [facility] 1 [address] [place] [address] 01/04/2025 2:00 PM EDT Appointment [facility] 1 [address] [place] [address] 01/05/2025 4:00 PM EDT Appointment [facility] 1 [address] [place] [address] documented as of this encounter Visit Diagnoses Not on filedocumented in this encounter Additional Health Concerns Assessment Noted Time A fall risk assessment has been complete d for the patient 09/30/2024 9:33 AM EDT A Body Mass Index follow-up plan has been documented for the patient 05/28/2024 1:52 PM EST documented as of this encounter Care Teams Certified Medical Coder Relationship Specialty Start Date End Date Jevon Vazquez MD [address] [place] [address] #1 [address]1 [place] [address] PCP - General 03/23/22 documented as of this encounter
--- OUTSIDE RECORDS SUMMARY | 2024-12-25 09:12 | XMS_ITS | Encounter Summary ---
Author Organization Healthcare Address [address] [place] [id number] Care Team Providers Care Training Professional Name Role Phone Jevon Vazquez MD Primary Care Provider [phone] Encounter Details Date Type Department Care Team ([facility] Contact Info) Description 11/13/2024 Orders Only [facility] Hematology/BMT and Cellular Therapy Program [address] [phone] 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, RN [facility] Acute myeloid leukemia not [...] Hematology/BMT and Cellular Therapy Program [address] [phone] 12/30/2024 9:00 AM EDT Office Visit [facility] Hematology/BMT and Cellular Therapy Program [address] [phone] Bibiana Sepulveda, HAT SPRAYER 800 [facility] [address] [place] [phone] 12/30/2024 10:30 AM EDT Appointment [facility] 1 [address] [place] [address] 12/31/2024 3:00 PM EDT Appointment [facility] 1 [address] [place] [address] 01/01/2025 3:00 PM EDT Appointment [facility] 1 [address] [place] [address] 01/02/2025 2:00 PM EDT Appointment [facility] 1 [address] [place] [address] 01/03/2025 2:00 PM EDT Appointment [facility] 1 [address] [place] [address] 01/04/2025 2:00 PM EDT Appointment [facility] 1 [address] [place] [address] 01/05/2025 4:00 PM EDT Appointment [facility] 1 [address] [place] [address] Scheduled Orders Name Type Priority Associated Diagnoses [...] documented as of this encounter Care Teams Training Professional Relationship Specialty Start Date End Date Jevon Vazquez MD [address] [place] [address] #1 #1 [place] [address] PCP - General 03/23/22 documented as of this encounter
--- OUTSIDE RECORDS SUMMARY | 2024-12-25 09:12 | XMS_ITS | Encounter Summary ---
Author Organization [facility] Address [address] [place] [address] Care Team Providers Care Cured Meat Packing Supervisor Name Role Phone Jevon Vazquez MD Primary Care Provider [phone] Encounter Details Date Type Department Care Team ([facility] Contact Info) Description 11/12/2024 Telephone [facility] Hematology/BMT and Cellular Therapy Program [address] [address] Zonia Hoffman, DYE MIXER 800 [facility] [address] [place] [phone] Social History Tobacco Use Types Packs/Day Years [...] Hematology/BMT and Cellular Therapy Program [address] [place] [address] 12/30/2024 9:00 AM EDT Office Visit PAV Hematology/BMT and Cellular Therapy Program 750 [facility] [place] [address] Bibiana Sepulveda, DYE MIXER 800 [facility] [address] [place] [address] 12/30/2024 10:30 AM EDT Appointment [facility] 1 [address] [place] [address] 12/31/2024 3:00 PM EDT Appointment [facility] 1 [address] [place] [address] 01/01/2025 3:00 PM EDT Appointment [facility] 1 [address] [place] [address] 01/02/2025 2:00 PM EDT Appointment [facility] 1 [address] [place] [address] 01/03/2025 2:00 PM EDT Appointment [facility] 1 [address] [place] [address] 01/04/2025 2:00 PM EDT Appointment [facility] Infusion Clinic 1 [address] [place] [address] 01/05/2025 4:00 PM EDT Appointment [facility] 1 [address] [place] [address] documented as of this encounter Visit Diagnoses Not on filedocumented in this encounter Additional Health Concerns Assessment Noted Time A fall risk assessment has been complete d for the patient 09/30/2024 9:33 AM EDT A Body Mass Index follow-up plan has been documented for the patient 05/28/2024 1:52 PM EST documented as of this encounter Care Teams Cured Meat Packing Supervisor Relationship Specialty Start Date End Date Jevon Vazquez MD [address] [place] [address] #1 #1 [place] [address] PCP - General 03/23/22 documented as of this encounter
--- OUTSIDE RECORDS SUMMARY | 2024-12-25 09:12 | XMS_ITS | Clinical Summary ---
Author Organization [facility] Address [address] [place] [address] Phone Care Team Providers Care Director Law Enforcement Name Role Phone Jevon Vazquez MD Primary Care Provider [phone] Allergies Active Allergy Reactions Criticality Noted Date [...] L4-5 LAMINECTOMY; Surgeon: Ivan Bartholomew MD; Location: [facility] OR; Service: Spine Medical History [...] 5.6 % 11/14/2022 2:57 PM EDT PREFERRED [employer], [employer] Est. Avg Glucose 148 mg/dL 11/14/2022 2:57 PM EDT [employer], [facility] Blood VENOUS BLOOD / Unknown Venipuncture / Unknown 11/11/2022 3:46 PM EDT 11/11/2022 3:55 PM EDT Narrative [facility] - 11/14/2022 2:57 PM EDT REFERENCE RANGE: Normal: 4.0-5.6% Pre-diabetes: 5.7-6.4% Provisional diagnosis of diabetes: >6.4% Hgb F>10% and anything which shortens red cell survival, such as hemolytic anemia, or unstable hemoglobin variants such as HbSS, HbSC, or HbCC, will lower the HbA1c value associated with a given level of glycemic control. us Lexi Maloney DO CHEMISTRY ORDERABLES Final R esult [facility] [employer] [facility] [address] [facility] , [address] [place] [id number] * (ABNORMAL) BASIC METABOLIC PANEL (11/11/2022 3:46 PM EDT) Sodium 136 136 - 145 mmol/L 11/11/2022 4:11 PM EDT [facility] Potassium 3.8 3.5 - 5.0 mmol/L 11/11/2022 4:11 PM EDT [facility] Chloride 102 98 - 107 mmol/L 11/11/2022 4:11 PM EDT [facility] Total CO2 24 22 - 29 mmol/L 11/11/2022 4:11 PM EDT [facility] Anion Gap 10 7 - 16 mmol/L 11/11/2022 4:11 PM EDT [facility] Calcium 10.1 8.8 - 10.4 mg/dL 11/11/2022 4:11 PM EDT [facility] Glucose Lvl 147(H) 82 - 100 mg/dL 11/11/2022 4:11 PM EDT [facility] BUN 15 8 - 23 mg/dL 11/11/2022 4:11 PM EDT [facility] Creatinine 0.82 0.51 - 1.30 mg/dL 11/11/2022 4:11 PM EDT [facility] eGFR (CKD-EPIcr 2020) 76 >=60 mL/min/1.7 3 m2 11/11/2022 4:11 PM EDT [facility] Comment:Estimated GFR was ca lculated using the CKD-EPIcr (2020) equation refit without race. The equation is recommended by the National Kidney Foundation - [place] [employer] of Nephrology Task Force. Blood VENOUS BLOOD / Unknown Venipuncture / Unknown 11/11/2022 3:46 PM EDT 11/11/2022 3:54 PM EDT us Leona Hanna DO CHEMISTRY ORDERABLES Final Res ult [facility] 1 [place] [address] * DX BONE DENSITY AXIAL SKELETON (07/25/2022 9:14 AM EDT) Anatomical Region Laterality Modality Dexa Scan 07/25/2022 Narrative 07/25/2022 3:45 PM EDT Indication: The patient is a female age 65 or older who requires a bone density assessment. Study was performed on [employer] 5. Bone Density: Region BMD T-score Z-score [...] Insurance [place]ICARE [place] [address] [place] [address] MEDICARE SUPPLEMENT MEDICARE [place] PART A AND B Member Subscriber Plan / Payer (Ef fective 2016-Present) Name:Ashly Hernández Member ID:[id number] Relation to Subscriber:Self Name:Ashly Hernández Subscriber ID:[id number] Payer ID:Not on file Group ID:Not on file Type:Not on file Address: [address] MEDICARE SUPPLEMENT MEDICARE [place] PART A & B MEDICARE [place] PART A AND B Member Subscriber Plan / Payer (Ef fective 2016-Present) Name:Ashly Hernández Member ID:[id number] Relation to Subscriber:Self Name:Aslhy Hernández Subscriber ID:[id number] Payer ID:Not on file Group ID:Not on file Type:Not on file Address: [address] MEDICARE SUPPLEMENT [employer] MEDICARE [place] PART A AND B [address] MEDICARE SUPPLEMENT Advance Directives For more information, please contact: [phone] * Full Code (Latest Code Status on File) Date Activated Date Inactivated Comments 11/14/2022 6:53 PM 11/16/2022 7:37 PM * Full Code Date Activated Date Inactivated Comments 11/12/2022 5:17 AM 11/14/2022 6:47 PM Care Teams Director Law Enforcement Relationship Specialty Start Date End Date Jevon Vazquez MD [address] [place] [address] PCP - General Family Medicine 11/10/22
--- OUTSIDE RECORDS SUMMARY | 2024-12-25 09:12 | XMS_ITS | Encounter Summary ---
Author Organization Healthcare Address [address] [place] [address] Care Team Providers Care Movement Therapist Name Role Phone Jevon Vazquez MD Primary Care Provider [phone] Encounter Details Date Type Department Care Team [...] Hematology/BMT and Cellular Therapy Program [address] [address] 12/30/2024 9:00 AM EDT Office Visit [facility] Hematology/BMT and Cellular Therapy Program [address] [address] Bibiana Sepulveda, DETENTION WORKER 800 [facility] [address] [place] [address] 12/30/2024 10:30 AM EDT Appointment [facility] 1 [address] [place] [address] 12/31/2024 3:00 PM EDT Appointment [facility] 1 [address] [place] [address] 01/01/2025 3:00 PM EDT Appointment [facility] 1 [address] [place] [address] 01/02/2025 2:00 PM EDT Appointment [facility] 1 [address] [place] [address] 01/03/2025 2:00 PM EDT Appointment [facility] 1 [address] [place] [address] 01/04/2025 2:00 PM EDT Appointment [facility] 1 [address] [place] [address] 01/05/2025 4:00 PM EDT Appointment [facility] 1 [address] [place] [address] documented as of this encounter Visit Diagnoses Not on filedocumented in this encounter Additional Health Concerns Assessment Noted Time A fall risk assessment has been complete d for the patient 09/30/2024 9:33 AM EDT A Body Mass Index follow-up plan has been documented for the patient 05/28/2024 1:52 PM EST documented as of this encounter Care Teams Movement Therapist Relationship Specialty Start Date End Date Jevon Vazquez MD [address] [place] [address] [address]1 [address]1 [place] [address] PCP - General 03/23/22 documented as of this encounter
--- OUTSIDE RECORDS SUMMARY | 2024-12-25 09:12 | XMS_ITS | Encounter Summary ---
Author Organization Healthcare Address [address] [place] [address] Care Team Providers Care Cotton Buyer Name Role Phone Jevon Vazquez MD Primary Care Provider [phone] Encounter Details Date Type Department Care Team [...] Hematology/BMT and Cellular Therapy Program [address] [address] 12/30/2024 9:00 AM EDT Office Visit [facility] Hematology/BMT and Cellular Therapy Program [address] [address] Bibiana Sepulveda, INGREDIENT SPECIALIST 800 [facility] [address] [place] [address] 12/30/2024 10:30 AM EDT Appointment [facility] 1 [address] [place] [address] 12/31/2024 3:00 PM EDT Appointment [facility] 1 [address] [place] [address] 01/01/2025 3:00 PM EDT Appointment [facility] 1 [address] [place] [address] 01/02/2025 2:00 PM EDT Appointment [facility] 1 [address] [place] [address] 01/03/2025 2:00 PM EDT Appointment [facility] 1 [address] [place] [address] 01/04/2025 2:00 PM EDT Appointment [facility] 1 [address] [place] [address] 01/05/2025 4:00 PM EDT Appointment [facility] 1 [address] [place] [address] documented as of this encounter Visit Diagnoses [...] Date End Date Jevon Vazquez MD [address] [place] [address] [address]1 [address]1 [place] [address] PCP - General 03/23/22 documented as of this encounter
--- OUTSIDE RECORDS SUMMARY | 2024-12-25 09:12 | XMS_ITS | Encounter Summary ---
Author Organization Healthcare Address [address] [place] [address] Care Team Providers Care Medical Van Driver Name Role Phone Jevon Vazquez MD Primary Care Provider [phone] Encounter Details Date Type Department Care Team [...] Hematology/BMT and Cellular Therapy Program [address] [address] 12/30/2024 9:00 AM EDT Office Visit [facility] Hematology/BMT and Cellular Therapy Program [address] [address] Bibiana Sepulveda, CONCIERGE 800 [facility] [address] [place] [address] 12/30/2024 10:30 AM EDT Appointment [facility] 1 [address] [place] [address] 12/31/2024 3:00 PM EDT Appointment [facility] 1 [address] [place] [address] 01/01/2025 3:00 PM EDT Appointment [facility] 1 [address] [place] [address] 01/02/2025 2:00 PM EDT Appointment [facility] 1 [address] [place] [address] 01/03/2025 2:00 PM EDT Appointment [facility] 1 [address] [place] [address] 01/04/2025 2:00 PM EDT Appointment [facility] 1 [address] [place] [address] 01/05/2025 4:00 PM EDT Appointment [facility] 1 [address] [place] [address] documented as of this encounter Visit Diagnoses Not on filedocumented in this encounter Additional Health Concerns Assessment Noted Time A fall risk assessment has been complete d for the patient 09/30/2024 9:33 AM EDT A Body Mass Index follow-up plan has been documented for the patient 05/28/2024 1:52 PM EST documented as of this encounter Care Teams Medical Van Driver Relationship Specialty Start Date End Date Jevon Vazquez MD [address] [place] [address] [address]1 [address]1 [place] [address] PCP - General 03/23/22 documented as of this encounter
--- OUTSIDE RECORDS SUMMARY | 2024-12-25 09:12 | XMS_ITS | Encounter Summary ---
Author Organization Healthcare Address [address] [place] [address] Care Team Providers Care Cloth Booker Name Role Phone Jevon Vazquez MD Primary Care Provider [phone] Encounter Details Date Type Department Care Team [...] Hematology/BMT and Cellular Therapy Program [address] [address] 12/30/2024 9:00 AM EDT Office Visit [facility] Hematology/BMT and Cellular Therapy Program [address] [address] Bibiana Sepulveda, CLIENT EXPERIENCE CONSULTANT 800 [facility] [address] [place] [address] 12/30/2024 10:30 AM EDT Appointment [facility] 1 [address] [place] [address] 12/31/2024 3:00 PM EDT Appointment [facility] 1 [address] [place] [address] 01/01/2025 3:00 PM EDT Appointment [facility] 1 [address] [place] [address] 01/02/2025 2:00 PM EDT Appointment [facility] 1 [address] [place] [address] 01/03/2025 2:00 PM EDT Appointment [facility] 1 [address] [place] [address] 01/04/2025 2:00 PM EDT Appointment [facility] 1 [address] [place] [address] 01/05/2025 4:00 PM EDT Appointment [facility] 1 [address] [place] [address] documented as of this encounter Visit Diagnoses Not on filedocumented in this encounter Additional Health Concerns Assessment Noted Time A fall risk assessment has been complete d for the patient 09/30/2024 9:33 AM EDT A Body Mass Index follow-up plan has been documented for the patient 05/28/2024 1:52 PM EST documented as of this encounter Care Teams Cloth Booker Relationship Specialty Start Date End Date Jevon Vazquez MD [address] [place] [address] [address]1 [address]1 [place] [address] PCP - General 03/23/22 documented as of this encounter
[2024-12-25 09:18] LABS: Hematocrit 23.9 % (37.0-47.0); Hemoglobin 8.0 g/dL (12.2-16.2); Immature Granulocytes % 0 %; Mean Corpuscular HGB Conc 33.5 g/dL (31.8-35.4); Mean Corpuscular Hemoglobin 32.7 pg (27.0-31.2); Mean Corpuscular Volume 97.6 fl (81-99); Nucleated Red Blood Cells % 1.1 %; Red Blood Count 2.45 M/mm3 (4.20-5.40); Red Cell Distribution Width-SD 71.6 fL
[2024-12-25 09:25] LABS: Alanine Aminotransferase 13 U/L (12-78); Albumin Level 3.6 g/dl (3.5-5.0); Albumin/Globulin Ratio 1.6 (1.1-1.8); Alkaline Phosphatase 41 U/L (38-126); Anion Gap 10.8 mEq/L (5-15); Aspartate Amino Transferase 32 U/L (14-36); Bilirubin,Total 0.5 mg/dl (0.2-1.3); Blood Urea Nitrogen 22 mg/dl (7-17); Calcium 9.0 mg/dl (8.4-10.2); Carbon Dioxide 23 mmol/L (22.0-30.0); Chloride 107 mmol/L (98-107); Creatinine,Serum 1.10 mg/dl (0.52-1.04); Estimated Glomerular Filt Rate 49 ml/min (>60); GFR (African American) 59 ML/MIN (>60); Globulin 2.3 g/dL (1.3-3.2); Glucose 141 mg/dl (74-100); Potassium 3.8 mmoL/L (3.5-5.1); Sodium 137 mmol/L (136-145); Total Protein,Serum 5.9 g/dl (6.3-8.2)
[2024-12-25 09:30] LABS: Platelet Count 8 K/mm3 (142-424); White Blood Count 1.8 K/mm3 (4.8-10.8)
[2024-12-25 10:37] LABS: RBC Morphology Normal; Total Cells Counted 25
[2024-12-25] MEDS: ACETAMINOPHEN 325MG TAB 650 MG (12:30)
[2024-12-25] MEDS: 0.9 % SODIUM CHLORIDE 250 ML 25 ML IV (16:00)
[2024-12-25] MEDS: SODIUM CHLORIDE 0.9% 10ML FLUSH SYRINGE 10 ML IV (16:18)
== END 2024-12-25 16:00 | disposition home or self-care (01) ==
LOC: INF 08:59
PROVIDERS: PCP Family Medicine; Visit Provider Internal Medicine Medical Oncology
DX: C92.00 Acute myeloblastic leukemia, not having achieved remission (principal)
CPT/HCPCS: 36430; 80053; 85007; 85025; 86850; J1642; J7050; P9016; P9034

== ENCOUNTER 2024-12-29 09:09 | Outpatient (CLI) | payer MEDICARE, BC, SELFPAY ==
[2024-12-29 09:31] LABS: Hematocrit 27.4 % (37.0-47.0); Hemoglobin 9.2 g/dL (12.2-16.2); Immature Granulocytes % 0 %; Mean Corpuscular HGB Conc 33.6 g/dL (31.8-35.4); Mean Corpuscular Hemoglobin 31.1 pg (27.0-31.2); Mean Corpuscular Volume 92.6 fl (81-99); Nucleated Red Blood Cells % 1.3 %; Red Blood Count 2.96 M/mm3 (4.20-5.40); Red Cell Distribution Width-SD 72.2 fL
--- OUTSIDE RECORDS SUMMARY | 2024-12-29 09:35 | XMS_ITS | Encounter Summary ---
Author Organization Healthcare Address [address] [place] [address] Care Team Providers Care Composite Laminator Name Role Phone Jevon Vazquez MD Primary Care Provider [phone] Encounter Details Date Type Department Care Team (Late Contact Info) Description 11/27/2024 Telephone [facility] Hematology/BMT and Cellular Therapy Program [address] [address] Zonia Hoffman, AUDIT INTERN 800 [facility] [address] [place] [phone] Social History Tobacco Use Types Packs/Day Years [...] CC Hematology/BMT and Cellular Therapy Program 750 [facility] [place] [address] 12/30/2024 9:00 AM EDT Office Visit [facility] Hematology/BMT and Cellular Therapy Program 750 [facility], [facility] [place] [address] Bibiana Sepulveda, AUDIT INTERN 800 [facility] [address] [place] [address] 12/30/2024 10:30 AM EDT Appointment [facility] 1 [address] [place] [address] 12/31/2024 3:00 PM EDT Appointment [facility] 1 [address] [place] [address] 01/01/2025 3:00 PM EDT Appointment [facility] 1 [address] [place] [address] 01/02/2025 2:00 PM EDT Appointment [facility] 1 [address] [place] [address] 01/03/2025 2:00 PM EDT Appointment [facility] 1 [address] [place] [address] 01/04/2025 2:00 PM EDT Appointment [facility] [address] [place] [address] 01/05/2025 4:00 PM EDT Appointment [facility] 1 [address] [place] [address] documented as of this encounter Visit Diagnoses Not on filedocumented in this encounter Additional Health Concerns Assessment Noted Time A fall risk assessment has been complete d for the patient 09/30/2024 9:33 AM EDT A Body Mass Index follow-up plan has been documented for the patient 05/28/2024 1:52 PM EST documented as of this encounter Care Teams Composite Laminator Relationship Specialty Start Date End Date Jevon Vazquez MD [address] [place] [address] #1 #1 [place] [address] PCP - General 03/23/22 documented as of this encounter
--- OUTSIDE RECORDS SUMMARY | 2024-12-29 09:35 | XMS_ITS | Encounter Summary ---
Author Organization Healthcare Address [address] [place] [address] Care Team Providers Care Market Research Executive Name Role Phone Jevon Vazquez MD Primary Care Provider [phone] Encounter Details Date Type Department Care Team [...] Hematology/BMT and Cellular Therapy Program [address] [address] 12/30/2024 9:00 AM EDT Office Visit [facility] Hematology/BMT and Cellular Therapy Program [address] [address] Bibiana Sepulveda, HOMEBIRTH MIDWIFE 800 [facility] [address] [place] [address] 12/30/2024 10:30 AM EDT Appointment [facility] 1 [address] [place] [address] 12/31/2024 3:00 PM EDT Appointment [facility] 1 [address] [place] [address] 01/01/2025 3:00 PM EDT Appointment [facility] 1 [address] [place] [address] 01/02/2025 2:00 PM EDT Appointment [facility] 1 [address] [place] [address] 01/03/2025 2:00 PM EDT Appointment [facility] 1 [address] [place] [address] 01/04/2025 2:00 PM EDT Appointment [facility] Infusion 800 [place] [address] 01/05/2025 4:00 PM EDT Appointment [facility] 1 [address] [place] [address] documented as of this encounter Visit Diagnoses Not on filedocumented in this encounter Additional Health Concerns Assessment Noted Time A fall risk assessment has been complete d for the patient 09/30/2024 9:33 AM EDT A Body Mass Index follow-up plan has been documented for the patient 05/28/2024 1:52 PM EST documented as of this encounter Care Teams Market Research Executive Relationship Specialty Start Date End Date Jevon Vazquez MD [address] [place] [address] #1 [address]1 [place] [address] PCP - General 03/23/22 documented as of this encounter
--- OUTSIDE RECORDS SUMMARY | 2024-12-29 09:35 | XMS_ITS | Encounter Summary ---
Author Organization Healthcare Address [address] [place] [address] Care Team Providers Care Automobile Damage Appraiser Name Role Phone Jevon Vazquez MD Primary Care Provider [phone] Encounter Details Date Type Department Care Team [...] Hematology/BMT and Cellular Therapy Program [address] [address] 12/30/2024 9:00 AM EDT Office Visit [facility] Hematology/BMT and Cellular Therapy Program [address] [address] Bibiana Sepulveda, FURNACE MAINTENANCE 800 [facility] [address] [place] [address] 12/30/2024 10:30 AM EDT Appointment [facility] 1 [address] [place] [address] 12/31/2024 3:00 PM EDT Appointment [facility] 1 [address] [place] [address] 01/01/2025 3:00 PM EDT Appointment [facility] 1 [address] [place] [address] 01/02/2025 2:00 PM EDT Appointment [facility] 1 [address] [place] [address] 01/03/2025 2:00 PM EDT Appointment [facility] 1 [address] [place] [address] 01/04/2025 2:00 PM EDT Appointment [facility]fusion 800 [place] [address] 01/05/2025 4:00 PM EDT Appointment [facility] 1 [address] [place] [address] documented as of this encounter Visit Diagnoses Not on filedocumented in this encounter Additional Health Concerns Assessment Noted Time A fall risk assessment has been complete d for the patient 09/30/2024 9:33 AM EDT A Body Mass Index follow-up plan has been documented for the patient 05/28/2024 1:52 PM EST documented as of this encounter Care Teams Automobile Damage Appraiser Relationship Specialty Start Date End Date Jevon Vazquez MD [address] [place] [address] #1 [address]1 [place] [address] PCP - General 03/23/22 documented as of this encounter
--- OUTSIDE RECORDS SUMMARY | 2024-12-29 09:35 | XMS_ITS | Encounter Summary ---
Author Organization [facility] Address [address] [place] [address] Care Team Providers Care Gum Scoring Machine Operator Name Role Phone Jevon Vazquez MD Primary Care Provider [phone] Reason for Visit * Reason Comments Med Refill Encounter Details Date Type Department Care Team ([facility] Contact Info) Description 01/30/2024 Refill [facility] Hematology/BMT and Cellular Therapy Program [address] [phone] [place] MD 800 [facility] [address] [place] [phone] Social History Tobacco Use Types Packs/Day Years [...] Upcoming Encounters Date Type Department Care Team ([facility] Contact Info) Description 12/30/2024 8:30 AM EDT Clinical Support [facility] Hematology/BMT and Cellular Therapy Program [address] [place] [address] 12/30/2024 9:00 AM EDT Office Visit [facility] Hematology/BMT and Cellular Therapy Program [address] [address] Bibiana Sepulveda, TOBACCO SWEEPER [address] [facility] [address] [place] [address] 12/30/2024 10:30 AM EDT Appointment [facility] 1 [address] [place] [address] 12/31/2024 3:00 PM EDT Appointment [facility] 1 [address] [place] [address] 01/01/2025 3:00 PM EDT Appointment [facility] 1 [address] [place] [address] 01/02/2025 2:00 PM EDT Appointment [facility] 1 [address] [place] [address] 01/03/2025 2:00 PM EDT Appointment [facility] 1 [address] [place] [address] 01/04/2025 2:00 PM EDT Appointment [facility]fusion 800 [place] [address] 01/05/2025 4:00 PM EDT Appointment [facility] 1 [address] [place] [address] documented as of this encounter Visit Diagnoses Not on filedocumented in this encounter Additional Health Concerns Assessment Noted Time A fall risk assessment has been complete d for the patient 01/11/2024 9:16 AM EDT A Body Mass Index follow-up plan has been documented for the patient 01/21/2024 6:16 AM EDT documented as of this encounter Care Teams Gum Scoring Machine Operator Relationship Specialty Start Date End Date Jevon Vazquez MD [address] [place] [address] #1 #1 [place] [address] PCP - General 03/23/22 documented as of this encounter
--- OUTSIDE RECORDS SUMMARY | 2024-12-29 09:35 | XMS_ITS | Encounter Summary ---
Author Organization Healthcare Address [address] [place] [address] Care Team Providers Care Bale Stacker Name Role Phone Jevon Vazquez MD Primary Care Provider [phone] Encounter Details Date Type Department Care Team [...] Hematology/BMT and Cellular Therapy Program [address] [address] 12/30/2024 9:00 AM EDT Office Visit [facility] Hematology/BMT and Cellular Therapy Program [address] [address] Bibiana Sepulveda, PANTOGRAPH ENGRAVER 800 [facility] [address] [place] [address] 12/30/2024 10:30 AM EDT Appointment [facility] 1 [address] [place] [address] 12/31/2024 3:00 PM EDT Appointment [facility] 1 [address] [place] [address] 01/01/2025 3:00 PM EDT Appointment [facility] 1 [address] [place] [address] 01/02/2025 2:00 PM EDT Appointment [facility] 1 [address] [place] [address] 01/03/2025 2:00 PM EDT Appointment [facility] 1 [address] [place] [address] 01/04/2025 2:00 PM EDT Appointment [facility] 800 [place] [address] 01/05/2025 4:00 PM EDT Appointment [facility] 1 [address] [place] [address] documented as of this encounter Visit Diagnoses Not on filedocumented in this encounter Additional Health Concerns Assessment Noted Time A fall risk assessment has been complete d for the patient 09/30/2024 9:33 AM EDT A Body Mass Index follow-up plan has been documented for the patient 05/28/2024 1:52 PM EST documented as of this encounter Care Teams Bale Stacker Relationship Specialty Start Date End Date Jevon Vazquez MD [address] [place] [address] #1 [address]1 [place] [address] PCP - General 03/23/22 documented as of this encounter
--- OUTSIDE RECORDS SUMMARY | 2024-12-29 09:35 | XMS_ITS | Encounter Summary ---
Author Organization Healthcare Address [address] [place] [address] Care Team Providers Care Nursing Specialist Name Role Phone Jevon Vazquez MD Primary Care Provider [phone] Encounter Details Date Type Department Care Team [...] Hematology/BMT and Cellular Therapy Program [address] [address] 12/30/2024 9:00 AM EDT Office Visit [facility] Hematology/BMT and Cellular Therapy Program [address] [address] Bibiana Sepulveda, JOINT CUTTER 800 [facility] [address] [place] [address] 12/30/2024 10:30 AM EDT Appointment [facility] 1 [address] [place] [address] 12/31/2024 3:00 PM EDT Appointment [facility] 1 [address] [place] [address] 01/01/2025 3:00 PM EDT Appointment [facility] 1 [address] [place] [address] 01/02/2025 2:00 PM EDT Appointment [facility] 1 [address] [place] [address] 01/03/2025 2:00 PM EDT Appointment [facility] 1 [address] [place] [address] 01/04/2025 2:00 PM EDT Appointment [facility] 800 [place] [address] 01/05/2025 4:00 PM EDT Appointment [facility] 1 [address] [place] [address] documented as of this encounter Visit Diagnoses Not on filedocumented in this encounter Additional Health Concerns Assessment Noted Time A fall risk assessment has been complete d for the patient 09/30/2024 9:33 AM EDT A Body Mass Index follow-up plan has been documented for the patient 05/28/2024 1:52 PM EST documented as of this encounter Care Teams Nursing Specialist Relationship Specialty Start Date End Date Jevon Vazquez MD [address] [place] [address] #1 [address]1 [place] [address] PCP - General 03/23/22 documented as of this encounter
--- OUTSIDE RECORDS SUMMARY | 2024-12-29 09:35 | XMS_ITS | Encounter Summary ---
Author Organization Healthcare Address [address] [place] [address] Care Team Providers Care Manager Radiation Name Role Phone Jevon Vazquez MD Primary Care Provider [phone] Encounter Details Date Type Department Care Team [...] Hematology/BMT and Cellular Therapy Program [address] [address] 12/30/2024 9:00 AM EDT Office Visit [facility] Hematology/BMT and Cellular Therapy Program [address] [address] Bibiana Sepulveda, WASTE WATER OPERATOR 800 [facility] [address] [place] [address] 12/30/2024 10:30 AM EDT Appointment [facility] 1 [address] [place] [address] 12/31/2024 3:00 PM EDT Appointment [facility] 1 [address] [place] [address] 01/01/2025 3:00 PM EDT Appointment [facility] 1 [address] [place] [address] 01/02/2025 2:00 PM EDT Appointment [facility] 1 [address] [place] [address] 01/03/2025 2:00 PM EDT Appointment [facility] 1 [address] [place] [address] 01/04/2025 2:00 PM EDT Appointment [facility] [address] [place] [address] 01/05/2025 4:00 PM EDT Appointment [facility] 1 [address] [place] [address] documented as of this encounter Visit Diagnoses Not on filedocumented in this encounter Additional Health Concerns Assessment Noted Time A fall risk assessment has been complete d for the patient 09/30/2024 9:33 AM EDT A Body Mass Index follow-up plan has been documented for the patient 05/28/2024 1:52 PM EST documented as of this encounter Care Teams Manager Radiation Relationship Specialty Start Date End Date Jevon Vazquez MD [address] [place] [address] #1 [address]1 [place] [address] PCP - General 03/23/22 documented as of this encounter
--- OUTSIDE RECORDS SUMMARY | 2024-12-29 09:35 | XMS_ITS | Encounter Summary ---
Author Organization Healthcare Address [address] [place] [address] Care Team Providers Care Consumer Insight Analyst Name Role Phone Jevon Vazquez MD Primary Care Provider [phone] Encounter Details Date Type Department Care Team [...] Hematology/BMT and Cellular Therapy Program [address] [address] 12/30/2024 9:00 AM EDT Office Visit [facility] Hematology/BMT and Cellular Therapy Program [address] [address] Bibiana Sepulveda, STEAM BLOCKER 800 [facility] [address] [place] [address] 12/30/2024 10:30 AM EDT Appointment [facility] 1 [address] [place] [address] 12/31/2024 3:00 PM EDT Appointment [facility] 1 [address] [place] [address] 01/01/2025 3:00 PM EDT Appointment [facility] 1 [address] [place] [address] 01/02/2025 2:00 PM EDT Appointment [facility] 1 [address] [place] [address] 01/03/2025 2:00 PM EDT Appointment [facility] 1 [address] [place] [address] 01/04/2025 2:00 PM EDT Appointment [facility] 800 [place] [address] 01/05/2025 4:00 PM EDT Appointment [facility] 1 [address] [place] [address] documented as of this encounter Visit Diagnoses Not on filedocumented in this encounter Additional Health Concerns Assessment Noted Time A fall risk assessment has been complete d for the patient 09/30/2024 9:33 AM EDT A Body Mass Index follow-up plan has been documented for the patient 05/28/2024 1:52 PM EST documented as of this encounter Care Teams Consumer Insight Analyst Relationship Specialty Start Date End Date Jevon Vazquez MD [address] [place] [address] #1 [address]1 [place] [address] PCP - General 03/23/22 documented as of this encounter
--- OUTSIDE RECORDS SUMMARY | 2024-12-29 09:35 | XMS_ITS | Encounter Summary ---
Author Organization [facility] Address [address] [place] [address] Care Team Providers Care Continuous Crusher Operator Name Role Phone Jevon Vazquez MD Primary Care Provider [phone] Reason for Visit * Reason Comments Med Refill Encounter Details Date Type Department Care Team ([facility] Contact Info) Description 12/09/2024 Refill [facility] Hematology/BMT and Cellular Therapy Program [address] [phone] Zonia Hoffman, MAGNETIC PROSPECTING OPERATOR 800 [facility] [address] [place] [phone] Social History Tobacco Use Types Packs/Day Years [...] Encounters Date Type Department Care Team ([facility] Contact Info) Description 12/30/2024 8:30 AM EDT Clinical Support [facility] Hematology/BMT and Cellular Therapy Program [address] [phone] 12/30/2024 9:00 AM EDT Office Visit [facility] Hematology/BMT and Cellular Therapy Program [address] [phone] Bibiana Sepulveda, MAGNETIC PROSPECTING OPERATOR [address] [facility] [address] [place] [address] 12/30/2024 10:30 AM EDT Appointment [facility] 1 [address] [place] [address] 12/31/2024 3:00 PM EDT Appointment [facility] 1 [address] [place] [address] 01/01/2025 3:00 PM EDT Appointment [facility] 1 [address] [place] [address] 01/02/2025 2:00 PM EDT Appointment [facility] 1 [address] [place] [address] 01/03/2025 2:00 PM EDT Appointment [facility] 1 [address] [place] [address] 01/04/2025 2:00 PM EDT Appointment [facility] [address] [place] [address] 01/05/2025 4:00 PM EDT Appointment [facility] 1 [address] [place] [address] documented as of this encounter Visit Diagnoses Not on filedocumented in this encounter Additional Health Concerns Assessment Noted Time A fall risk assessment has been complete d for the patient 09/30/2024 9:33 AM EDT A Body Mass Index follow-up plan has been documented for the patient 05/28/2024 1:52 PM EST documented as of this encounter Care Teams Continuous Crusher Operator Relationship Specialty Start Date End Date Jevon Vazquez MD [address] [place] [address] #1 #1 [place] [address] PCP - General 03/23/22 documented as of this encounter
--- OUTSIDE RECORDS SUMMARY | 2024-12-29 09:35 | XMS_ITS | Clinical Summary ---
Author Organization [facility] Address [address] [place] [address] Care Team Providers Care Tea Bag Machine Tender Name Role Phone David Vazquez Primary Care Provider [phone] Allergies No known active allergies Medications atorvastatin [...] series) 2025 Medical Devices Implanted Type Area Hay Buckler Device Identifier Shelf Expiration Date Model / Serial / Lot Mis Ply Scr 6.5x50mm - [id number] Implanted:Qty : 1 on 01/30/2023 by Ivan Bartholomew MD at [facility] Screw N/A: Spine Lumbar [employer] [id number] / / Mis Ply Scr 6.5x45mm - [id number] Implanted:Qty : 3 on 01/30/2023 by Ivan Bartholomew MD at [facility] Screw N/A: Spine Lumbar [employer] [id number] / / Reline Mas Reduction Screw 7.5x45 - [id number] Implanted:Qty : 2 on 01/30/2023 by Ivan Bartholomew MD at [facility] Screw N/A: Spine Lumbar [employer] [id number] / / Grft Dbm Vesuvius Putty 5cc - [id number] Implanted:Qty : 1 on 01/30/2023 by Ivan Bartholomew MD at [facility] [employer] [id number] 04/20/2025 [id number] [id number] P / [id number] / Putty I-Factor 5.0cc - [id number] Implanted:Qty : 1 on 01/30/2023 by Ivan Bartholomew MD at [facility] N/A: Spine Lumbar [employer] 03/15/2025 [id number] / / [id number] Modulus Xlw [id number] 10 Degree - [id number] Implanted:Qty : 1 on 01/30/2023 by Ivan Bartholomew MD at [facility] N/A: Spine Lumbar [employer] [id number] / / [id number] Modulus Xlw [id number] - [id number] Implanted:Qty : 1 on 01/30/2023 by Ivan Bartholomew MD at [facility] N/A: Spine Lumbar [employer] 09/28/2027 [id number] / / [id number] Reln Lock Scr 5.5mm Opn Tulip - [id number] Implanted:Qty : 6 on 01/30/2023 by Ivan Bartholomew MD at [facility] N/A: Spine Lumbar [employer] [id number] / / Reln Mas Ti Petar 5.5x70mm - [id number] Implanted:Qty : 2 on 01/30/2023 by Ivan Bartholomew MD at [facility] N/A: Spine Lumbar [employer] [id number] / / Procedures Procedure Name Priority Date/Time [...] al Result [facility] [address] * (ABNORMAL) BASIC METABOLIC PANEL (BMP=EP1) [...] lt [facility] [address] from Last 3 Months or Most Recently Relevant to Health Maintenance Insurance MEDICARE PART A [facility] [address] [address] [place] [address] ANTH Advance Directives For more information, please contact: [phone] * Full Code (Latest Code Status on File) Date Activated Date Inactivated Comments 01/30/2023 9:13 AM No automated chest compression devices for VAD Patients Care Teams Tea Bag Machine Tender Relationship Specialty Start Date End Date David Vazquez [address] [place] [phone] PCP - General 01/24/23
--- OUTSIDE RECORDS SUMMARY | 2024-12-29 09:35 | XMS_ITS ---
Author Organization [facility] Address [address] [place] [address] Care Team Providers Care Activities Coordinator Name Role Phone Jevon Vazquez MD Primary Care Provider [phone] Active Problems Problem Noted Date Diagnosed Date [...]
--- OUTSIDE RECORDS SUMMARY | 2024-12-29 09:35 | XMS_ITS | Encounter Summary ---
Author Organization Healthcare Address [address] [place] [address] Care Team Providers Care Passenger Tire Builder Name Role Phone Jevon Vazquez MD [...] Hematology/BMT and Cellular Therapy Program [address] [address] 12/30/2024 9:00 AM EDT Office Visit [facility] Hematology/BMT and Cellular Therapy Program [address] [address] Bibiana Sepulveda, MEDICAL ADVISOR 800 [facility] [address] [place] [phone] 12/30/2024 10:30 AM EDT Appointment [facility] 1 [address] [place] [address] 12/31/2024 3:00 PM EDT Appointment [facility] 1 [address] [place] [address] 01/01/2025 3:00 PM EDT Appointment [facility] 1 [address] [place] [address] 01/02/2025 2:00 PM EDT Appointment [facility] 1 [address] [place] [address] 01/03/2025 2:00 PM EDT Appointment [facility] 1 [address] [place] [address] 01/04/2025 2:00 PM EDT Appointment [facility] [address] [place] [address] 01/05/2025 4:00 PM EDT Appointment [facility] 1 [address] [place] [address] documented as of this encounter Visit Diagnoses Not on filedocumented in this encounter Additional Health Concerns Assessment Noted Time A fall risk assessment has been complete d for the patient 09/30/2024 9:33 AM EDT A Body Mass Index follow-up plan has been documented for the patient 05/28/2024 1:52 PM EST documented as of this encounter Care Teams Passenger Tire Builder Relationship Specialty Start Date End Date Jveon Vazquez MD [address] [place] [address] #1 [address]1 [place] [address] PCP - General 03/23/22 documented as of this encounter
--- OUTSIDE RECORDS SUMMARY | 2024-12-29 09:35 | XMS_ITS | Encounter Summary ---
Author Organization Healthcare Address [address] [place] [address] Care Team Providers Care Drive Away Driver Name Role Phone Jevon Vazquez MD Primary Care Provider [phone] Encounter Details Date Type Department Care Team [...] Hematology/BMT and Cellular Therapy Program [address] [address] 12/30/2024 9:00 AM EDT Office Visit [facility] Hematology/BMT and Cellular Therapy Program [address] [address] Bibiana Sepulveda, PIANO MAKER 800 [facility] [address] [place] [address] 12/30/2024 10:30 AM EDT Appointment [facility] 1 [address] [place] [address] 12/31/2024 3:00 PM EDT Appointment [facility] 1 [address] [place] [address] 01/01/2025 3:00 PM EDT Appointment [facility] 1 [address] [place] [address] 01/02/2025 2:00 PM EDT Appointment [facility] 1 [address] [place] [address] 01/03/2025 2:00 PM EDT Appointment [facility] 1 [address] [place] [address] 01/04/2025 2:00 PM EDT Appointment [facility] [address] [place] [address] 01/05/2025 4:00 PM EDT Appointment [facility] 1 [address] [place] [address] documented as of this encounter Visit Diagnoses Not on filedocumented in this encounter Additional Health Concerns Assessment Noted Time A fall risk assessment has been complete d for the patient 09/30/2024 9:33 AM EDT A Body Mass Index follow-up plan has been documented for the patient 05/28/2024 1:52 PM EST documented as of this encounter Care Teams Drive Away Driver Relationship Specialty Start Date End Date Jevon Vazquez MD [address] [place] [address] #1 [address]1 [place] [address] PCP - General 03/23/22 documented as of this encounter
--- OUTSIDE RECORDS SUMMARY | 2024-12-29 09:35 | XMS_ITS | Encounter Summary ---
Author Organization Healthcare Address [address] [place] [address] Care Team Providers Care Carry Out Clerk And Shelf Stocker Name Role Phone Jevon Vazquez MD Primary Care Provider [phone] Encounter Details Date Type Department Care Team [...] Hematology/BMT and Cellular Therapy Program [address] [address] 12/30/2024 9:00 AM EDT Office Visit [facility] Hematology/BMT and Cellular Therapy Program [address] [address] Bibiana Sepulveda, ASSURANCE SENIOR 800 [facility] [address] [place] [address] 12/30/2024 10:30 AM EDT Appointment [facility] 1 [address] [place] [address] 12/31/2024 3:00 PM EDT Appointment [facility] 1 [address] [place] [address] 01/01/2025 3:00 PM EDT Appointment [facility] 1 [address] [place] [address] 01/02/2025 2:00 PM EDT Appointment [facility] 1 [address] [place] [address] 01/03/2025 2:00 PM EDT Appointment [facility] 1 [address] [place] [address] 01/04/2025 2:00 PM EDT Appointment [facility] [address] [place] [address] 01/05/2025 4:00 PM EDT Appointment [facility] 1 [address] [place] [address] documented as of this encounter Visit Diagnoses Not on filedocumented in this encounter Additional Health Concerns Assessment Noted Time A fall risk assessment has been complete d for the patient 09/30/2024 9:33 AM EDT A Body Mass Index follow-up plan has been documented for the patient 05/28/2024 1:52 PM EST documented as of this encounter Care Teams Carry Out Clerk And Shelf Stocker Relationship Specialty Start Date End Date Jevon Vazquez MD [address] [place] [address] #1 [address]1 [place] [address] PCP - General 03/23/22 documented as of this encounter
--- OUTSIDE RECORDS SUMMARY | 2024-12-29 09:35 | XMS_ITS | Encounter Summary ---
Author Organization Healthcare Address [address] [place] [address] Care Team Providers Care Customer Advisor Name Role Phone Jevon Vazquez MD Primary Care Provider [phone] Encounter Details Date Type Department Care Team ([facility] Contact Info) Description 12/11/2024 Telephone [facility] CC Hematology/BMT and Cellular Therapy Program [address] [address] New Mckinney MD 800 [facility] [address] [place] [phone] Social History Tobacco Use Types Packs/Day Years [...] PM EDT Rn uploaded recent labs to [facility] and rescheduled appointments to 12/30. RN returned call to patient with updated plan of care and schedule. documented in this encounter Plan of Treatment Upcoming Encounters Date Type Department Care Team (Late Contact Info) Description 12/30/2024 8:30 AM EDT Clinical Support [facility] Hematology/BMT and Cellular Therapy Program [address] [place] [address] 12/30/2024 9:00 AM EDT Office Visit PAV Hematology/BMT and Cellular Therapy Program 750 [facility], [address] [place] [address] [place] [address] Bibiana Sepulveda, KETTLE FRY COOK OPERATOR 800 [facility] [address] [place] [address] 12/30/2024 10:30 AM EDT Appointment [facility] 1 [address] [place] [address] 12/31/2024 3:00 PM EDT Appointment [facility] 1 [address] [place] [address] 01/01/2025 3:00 PM EDT Appointment [facility] 1 [address] [place] [address] 01/02/2025 2:00 PM EDT Appointment [facility] 1 [address] [place] [address] 01/03/2025 2:00 PM EDT Appointment [facility] 1 [address] [place] [address] 01/04/2025 2:00 PM EDT Appointment [facility] [address] [place] [address] 01/05/2025 4:00 PM EDT Appointment [facility] 1 [address] [place] [address] documented as of this encounter Visit Diagnoses Not on filedocumented in this encounter Additional Health Concerns Assessment Noted Time A fall risk assessment has been complete d for the patient 09/30/2024 9:33 AM EDT A Body Mass Index follow-up plan has been documented for the patient 05/28/2024 1:52 PM EST documented as of this encounter Care Teams Customer Advisor Relationship Specialty Start Date End Date Jevon Vazquez MD [address] [place] [address] #1 #1 [place] [address] PCP - General 03/23/22 documented as of this encounter
--- OUTSIDE RECORDS SUMMARY | 2024-12-29 09:35 | XMS_ITS | Encounter Summary ---
Author Organization [facility] Address [address] [place] [address] Care Team Providers Care Draw Hand Name Role Phone Jevon Vazquez MD Primary Care Provider [phone] Reason for Visit * Reason Comments Med Refill Encounter Details Date Type Department Care Team ([facility] Contact Info) Description 11/08/2024 Refill [facility] CC Hematology/BMT and Cellular Therapy Program [address] [phone] New Mckinney MD 800 [facility] [address] [place] [phone] Social History Tobacco Use Types Packs/Day Years [...] Care Team ([facility] Contact Info) Description 12/30/2024 8:30 AM EDT Clinical Support [facility] CC Hematology/BMT and Cellular Therapy Program [address] [phone] 12/30/2024 9:00 AM EDT Office Visit [facility] Hematology/BMT and Cellular Therapy Program [address] [address] Bibiana Sepulveda, FINANCE VICE PRESIDENT [address] [facility] [address] [place] [address] 12/30/2024 10:30 AM EDT Appointment [facility] 1 [address] [place] [address] 12/31/2024 3:00 PM EDT Appointment [facility] 1 [address] [place] [address] 01/01/2025 3:00 PM EDT Appointment [facility] 1 [address] [place] [address] 01/02/2025 2:00 PM EDT Appointment [facility] 1 [address] [place] [address] 01/03/2025 2:00 PM EDT Appointment [facility] 1 [address] [place] [address] 01/04/2025 2:00 PM EDT Appointment [facility] [address] [place] [address] 01/05/2025 4:00 PM EDT Appointment [facility] 1 [address] [place] [address] documented as of this encounter Visit Diagnoses Not on filedocumented in this encounter Additional Health Concerns Assessment Noted Time A fall risk assessment has been complete d for the patient 09/30/2024 9:33 AM EDT A Body Mass Index follow-up plan has been documented for the patient 05/28/2024 1:52 PM EST documented as of this encounter Care Teams Draw Hand Relationship Specialty Start Date End Date Jevon Vazquez MD [address] [place] [address] #1 #1 [place] [address] PCP - General 03/23/22 documented as of this encounter
--- OUTSIDE RECORDS SUMMARY | 2024-12-29 09:35 | XMS_ITS | Encounter Summary ---
Author Organization Healthcare Address [address] [place] [address] Care Team Providers Care Language Assistant Name Role Phone Jevon Vazquez MD Primary Care Provider [phone] Encounter Details Date Type Department Care Team [...] Hematology/BMT and Cellular Therapy Program [address] [address] 12/30/2024 9:00 AM EDT Office Visit [facility] Hematology/BMT and Cellular Therapy Program [address] [address] Bibiana Sepulveda, FLANGER 800 [facility] [address] [place] [address] 12/30/2024 10:30 AM EDT Appointment [facility] 1 [address] [place] [address] 12/31/2024 3:00 PM EDT Appointment [facility] 1 [address] [place] [address] 01/01/2025 3:00 PM EDT Appointment [facility] 1 [address] [place] [address] 01/02/2025 2:00 PM EDT Appointment [facility] 1 [address] [place] [address] 01/03/2025 2:00 PM EDT Appointment [facility] 1 [address] [place] [address] 01/04/2025 2:00 PM EDT Appointment [facility] [address] [place] [address] 01/05/2025 4:00 PM EDT Appointment [facility] 1 [address] [place] [address] documented as of this encounter Visit Diagnoses Not on filedocumented in this encounter Additional Health Concerns Assessment Noted Time A fall risk assessment has been complete d for the patient 09/30/2024 9:33 AM EDT A Body Mass Index follow-up plan has been documented for the patient 05/28/2024 1:52 PM EST documented as of this encounter Care Teams Language Assistant Relationship Specialty Start Date End Date Jevon Vazquez MD [address] [place] [address] #1 [address]1 [place] [address] PCP - General 03/23/22 documented as of this encounter
--- OUTSIDE RECORDS SUMMARY | 2024-12-29 09:35 | XMS_ITS | Encounter Summary ---
Author Organization Healthcare Address [address] [place] [address] Care Team Providers Care Red Lead Burner Name Role Phone Jevon Vazquez MD Primary Care Provider [phone] Encounter Details Date Type Department Care Team [...] Hematology/BMT and Cellular Therapy Program [address] [address] 12/30/2024 9:00 AM EDT Office Visit [facility] Hematology/BMT and Cellular Therapy Program [address] [address] Bibiana Sepulveda, DERRICK MAN 800 [facility] [address] [place] [address] 12/30/2024 10:30 AM EDT Appointment [facility] 1 [address] [place] [address] 12/31/2024 3:00 PM EDT Appointment [facility] 1 [address] [place] [address] 01/01/2025 3:00 PM EDT Appointment [facility] 1 [address] [place] [address] 01/02/2025 2:00 PM EDT Appointment [facility] 1 [address] [place] [address] 01/03/2025 2:00 PM EDT Appointment [facility] 1 [address] [place] [address] 01/04/2025 2:00 PM EDT Appointment [facility] [address] [place] [address] 01/05/2025 4:00 PM EDT Appointment [facility] 1 [address] [place] [address] documented as of this encounter Visit Diagnoses Not on filedocumented in this encounter Additional Health Concerns Assessment Noted Time A fall risk assessment has been complete d for the patient 09/30/2024 9:33 AM EDT A Body Mass Index follow-up plan has been documented for the patient 05/28/2024 1:52 PM EST documented as of this encounter Care Teams Red Lead Burner Relationship Specialty Start Date End Date Jevon Vazquez MD [address] [place] [address] #1 #1 [place] [address] PCP - General 03/23/22 documented as of this encounter
--- OUTSIDE RECORDS SUMMARY | 2024-12-29 09:36 | XMS_ITS | Encounter Summary ---
Author Organization Healthcare Address [address] [place] [address] Care Team Providers Care Public Bath Attendant Name Role Phone Jevon Vazquez MD Primary Care Provider [phone] Encounter Details Date Type Department Care Team (Latest Contact Info) Description 12/26/2024 Travel Social History Tobacco Use Types Packs/Day [...] Hematology/BMT and Cellular Therapy Program [address] [address] 12/30/2024 9:00 AM EDT Office Visit [facility] Hematology/BMT and Cellular Therapy Program [address] [address] Bibiana Sepulveda, REGISTERED MEDICAL ASSISTANT 800 [facility] [address] [place] [address] 12/30/2024 10:30 AM EDT Appointment [facility] 1 [address] [place] [address] 12/31/2024 3:00 PM EDT Appointment [facility] 1 [address] [place] [address] 01/01/2025 3:00 PM EDT Appointment [facility] 1 [address] [place] [address] 01/02/2025 2:00 PM EDT Appointment [facility] 1 [address] [place] [address] 01/03/2025 2:00 PM EDT Appointment [facility] 1 [address] [place] [address] 01/04/2025 2:00 PM EDT Appointment [facility] [address] [place] [address] 01/05/2025 4:00 PM EDT Appointment [facility] 1 [address] [place] [address] documented as of this encounter Visit Diagnoses Not on filedocumented in this encounter Additional Health Concerns Assessment Noted Time A fall risk assessment has been complete d for the patient 09/30/2024 9:33 AM EDT A Body Mass Index follow-up plan has been documented for the patient 05/28/2024 1:52 PM EST documented as of this encounter Care Teams Public Bath Attendant Relationship Specialty Start Date End Date Jevon Vazquez MD [address] [place] [address] #1 #1 [place] [address] PCP - General 03/23/22 documented as of this encounter
--- OUTSIDE RECORDS SUMMARY | 2024-12-29 09:36 | XMS_ITS | Encounter Summary ---
Author Organization Healthcare Address [address] [place] [address] Care Team Providers Care Merchandise Flow Team Leader Name Role Phone Jevon Vazquez MD Primary Care Provider [phone] Encounter Details Date Type Department Care Team (Latest Contact Info) Description 12/28/2024 Travel Social History Tobacco Use Types Packs/Day [...] Hematology/BMT and Cellular Therapy Program [address] [address] 12/30/2024 9:00 AM EDT Office Visit [facility] Hematology/BMT and Cellular Therapy Program [address] [address] Bibiana Sepulveda, BOMBSIGHT SPECIALIST 800 [facility] [address] [place] [address] 12/30/2024 10:30 AM EDT Appointment [facility] 1 [address] [place] [address] 12/31/2024 3:00 PM EDT Appointment [facility] 1 [address] [place] [address] 01/01/2025 3:00 PM EDT Appointment [facility] 1 [address] [place] [address] 01/02/2025 2:00 PM EDT Appointment [facility] 1 [address] [place] [address] 01/03/2025 2:00 PM EDT Appointment [facility] 1 [address] [place] [address] 01/04/2025 2:00 PM EDT Appointment [facility] [address] [place] [address] 01/05/2025 4:00 PM EDT Appointment [facility] 1 [address] [place] [address] documented as of this encounter Visit Diagnoses Not on filedocumented in this encounter Additional Health Concerns Assessment Noted Time A fall risk assessment has been complete d for the patient 09/30/2024 9:33 AM EDT A Body Mass Index follow-up plan has been documented for the patient 05/28/2024 1:52 PM EST documented as of this encounter Care Teams Merchandise Flow Team Leader Relationship Specialty Start Date End Date Jevon Vazquez MD [address] [place] [address] #1 [address]1 [place] [address] PCP - General 03/23/22 documented as of this encounter
--- OUTSIDE RECORDS SUMMARY | 2024-12-29 09:36 | XMS_ITS | Encounter Summary ---
Author Organization Healthcare Address [address] [place] [address] Care Team Providers Care Sales Service Assistant Name Role Phone Jevon Vazquez MD Primary Care Provider [phone] Encounter Details Date Type Department Care Team [...] Cellular Therapy Program [address] [address] 12/30/2024 9:00 AM EDT Office Visit [facility] Hematology/BMT and Cellular Therapy Program [address] [address] Bibiana Sepulveda, COKEMAN 800 [facility] [address] [place] [address] 12/30/2024 10:30 AM EDT Appointment [facility] 1 [address] [place] [address] 12/31/2024 3:00 PM EDT Appointment [facility] 1 [address] [place] [address] 01/01/2025 3:00 PM EDT Appointment [facility] 1 [address] [place] [address] 01/02/2025 2:00 PM EDT Appointment [facility] 1 [address] [place] [address] 01/03/2025 2:00 PM EDT Appointment [facility] 1 [address] [place] [address] 01/04/2025 2:00 PM EDT Appointment [facility] In[facility] [address] [place] [address] 01/05/2025 4:00 PM EDT Appointment [facility] 1 [address] [place] [address] documented as of this encounter Visit Diagnoses Not on filedocumented in this encounter Additional Health Concerns Assessment Noted Time A fall risk assessment has been complete d for the patient 09/30/2024 9:33 AM EDT A Body Mass Index follow-up plan has been documented for the patient 05/28/2024 1:52 PM EST documented as of this encounter Care Teams Sales Service Assistant Relationship Specialty Start Date End Date Jevon Vazquez MD [address] [place] [address] [address]1 [address]1 [place] [address] PCP - General 03/23/22 documented as of this encounter
--- OUTSIDE RECORDS SUMMARY | 2024-12-29 09:36 | XMS_ITS | Encounter Summary ---
Author Organization Healthcare Address [address] [place] [address] Care Team Providers Care Flanger Name Role Phone Jevon Vazquez MD Primary Care Provider [phone] Encounter Details Date Type Department Care Team (Latest Contact Info) Description 12/25/2024 Travel Social History Tobacco Use Types Packs/Day [...] Hematology/BMT and Cellular Therapy Program [address] [address] 12/30/2024 9:00 AM EDT Office Visit [facility] Hematology/BMT and Cellular Therapy Program [address] [address] Bibiana Sepulveda, PIGMENT AND LACQUER MIXER 800 [facility] [address] [place] [address] 12/30/2024 10:30 AM EDT Appointment [facility] 1 [address] [place] [address] 12/31/2024 3:00 PM EDT Appointment [facility] 1 [address] [place] [address] 01/01/2025 3:00 PM EDT Appointment [facility] 1 [address] [place] [address] 01/02/2025 2:00 PM EDT Appointment [facility] 1 [address] [place] [address] 01/03/2025 2:00 PM EDT Appointment [facility] 1 [address] [place] [address] 01/04/2025 2:00 PM EDT Appointment [facility] 800 [place] [address] 01/05/2025 4:00 PM EDT Appointment [facility] 1 [address] [place] [address] documented as of this encounter Visit Diagnoses Not on filedocumented in this encounter Additional Health Concerns Assessment Noted Time A fall risk assessment has been complete d for the patient 09/30/2024 9:33 AM EDT A Body Mass Index follow-up plan has been documented for the patient 05/28/2024 1:52 PM EST documented as of this encounter Care Teams Flanger Relationship Specialty Start Date End Date Jevon Vazquez MD [address] [place] [address] [address]1 [address]1 [place] [address] PCP - General 03/23/22 documented as of this encounter
--- OUTSIDE RECORDS SUMMARY | 2024-12-29 09:36 | XMS_ITS | Clinical Summary ---
Author Organization [facility] Address [address] [place] [address] Care Team Providers Care Lehr Stripper Name Role Phone Jevon Vazquez MD Primary Care Provider [phone] Allergies No known active allergies Medications amLODIPine [...] Encounters Date Type Department Care Team Description 12/28/2024 Travel 12/26/2024 Travel 12/25/2024 Travel 12/24/2024 Travel 12/23/2024 Travel 12/11/2024 Telephone [facility] Hematology/BMT and Cellular Therapy Program [address] [place] [phone] New Mckinney MD 12/10/2024 Travel 12/09/2024 Refill [facility] Hematology/BMT and Cellular Therapy Program [address] [place] [phone] Zonia Hoffman, ASIAN ART CURATOR 11/27/2024 Telephone [facility] Hematology/BMT and Cellular Therapy Program [address] [place] [phone] Zonia Hoffman, ASIAN ART CURATOR 11/26/2024 Travel 11/25/2024 Travel 11/24/2024 Travel 11/23/2024 Travel 11/22/2024 Travel 11/13/2024 Orders Only [facility] Hematology/BMT and Cellular Therapy Program [address] [place] [phone] 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, construction rigger 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) 11/12/2024 Travel 11/12/2024 Telephone [facility] Hematology/BMT and Cellular Therapy Program [address] [address] Zonia Hoffman, ASIAN ART CURATOR 11/11/2024 Travel 11/10/2024 Travel 11/09/2024 Travel 11/08/2024 Travel 11/08/2024 Refill [facility] Hematology/BMT and Cellular Therapy Program [address] [phone] New Mckinney MD 11/07/2024 Travel 10/29/2024 Refill [facility] Hematology/BMT and Cellular Therapy Program [address] [phone] Zonia Hoffman, ASIAN ART CURATOR 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); Immunosuppressed status (CMS/HCC) 10/28/2024 Telephone [facility] Hematology/BMT and Cellular Therapy Program [address] [address] Zonia Hoffman, ASIAN ART CURATOR 10/27/2024 Telephone [facility] Hematology/BMT and Cellular Therapy Program [address] [address] Zonia Hoffman, ASIAN ART CURATOR 10/27/2024 Travel 10/26/2024 Travel 10/24/2024 Travel 10/23/2024 Travel 10/22/2024 Travel 10/15/2024 Refill [facility] Hematology/BMT and Cellular Therapy Program [address] [place] [address] New Mckinney MD 10/14/2024 Refill [facility] Hematology/BMT and Cellular Therapy Program [address] [place] [address] New Mckinney MD 10/13/2024 Telephone [facility] Hematology/BMT and Cellular Therapy Program [address] [phone] MeiZonia swanson APRN 10/13/2024 Travel 10/12/2024 Travel 10/11/2024 Travel 10/09/2024 Travel 10/08/2024 Travel 10/08/2024 Orders Only [facility] Hematology/BMT and Cellular Therapy Program 750 [facility] [address] [place] [phone] 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 construction rigger 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) 10/07/2024 Travel 09/30/2024 9:30 AM EDT Office Visit [facility] Hematology/BMT and Cellular Therapy Program 750 [facility] [place] [address] Zonia Hoffman APRN 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) 09/30/2024 9:00 AM EDT Clinical Support [facility] Hematology/BMT and Cellular Therapy Program 750 [facility] [place] [address] Jyoti Kemp 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) 09/30/2024 Telephone [facility] Hematology/BMT and Cellular Therapy Program 750 [facility] [place] [address] Zoraida Good RN 09/30/2024 Travel 09/29/2024 Travel 09/28/2024 Travel from Last 3 Months Immunizations Immunization [...] [facility] st Contact Info) Description 12/30/2024 8:30 AM EDT Clinical Support [facility] Hematology/BMT and Cellular Therapy Program [address] [address] 12/30/2024 9:00 AM EDT Office Visit [facility] Hematology/BMT and Cellular Therapy Program [address] [address] Bibiana Sepulveda, ASIAN ART CURATOR 800 [facility] [address] [place] [address] 12/30/2024 10:30 AM EDT Appointment [facility] 1 [address] [place] [address] 12/31/2024 3:00 PM EDT Appointment [facility] 1 [address] [place] [address] 01/01/2025 3:00 PM EDT Appointment [facility] 1 [address] [place] [address] 01/02/2025 2:00 PM EDT Appointment [facility] 1 [address] [place] [address] 01/03/2025 2:00 PM EDT Appointment [facility] 1 [address] [place] [address] 01/04/2025 2:00 PM EDT Appointment [facility] [address] [place] [address] 01/05/2025 4:00 PM EDT Appointment [facility] 1 [address] [place] [address] Health Maintenance Due Date Last Done Comments [...] 03/21/2023 UKY-Bone Density Scan 07/25/2024 07/25/2022, 023 [id number] Vaccine (4 - season) 2024 02/18/2021, 07/10/2020, [...] this topic Medical Devices Implanted Type Area Account Development Representative Device Identifier Shelf Expiration Date Model / Serial / Lot Port Clearvue Power 8fr - [id number] Implanted:Qty: 1 on 01/21/2024 by Ness Sargent MD at [facility] Peripherial Vascular-[id number] / / Procedures Procedure Name Priority Date/Time [...] values, rather than percentages. us Zonia Hoffman ASIAN ART CURATOR LAB BLOOD ORDERABLES Final Res ult [facility] [address] [place] [address] * (ABNORMAL) Comprehensive Metabolic Panel, Plasma (09/30/2024 [...] 09/30/2024 9:50 AM EDT us Zonia Hoffman ASIAN ART CURATOR LAB BLOOD ORDERABLES Final Res ult [facility] [address] [place] [address] * Hepatitis C Antibody w/Reflex to HCV Quant PCR (01/07/2024 8:42 AM EDT) Hepatitis C Antibody Negative Negative 01/07/2024 10:13 AM EDT [facility] Blood Venous blood specimen / Unknown Venipuncture / Unknown 01/07/2024 8:42 AM EDT 01/07/2024 9:25 AM EDT us New Mckinney MD LAB BLOOD ORDERABLES Final Re sult [facility] [address] [place] [address] from Last 3 Months or Most Recently Relevant to Health Maintenance Insurance MEDICARE FOR[facility]LY [facility] Care Teams Lehr Stripper Relationship Specialty Start Date End Date Jevon Vazquez MD [address] [place] [address] [address]1 [address]1 [place] [address] PCP - General 03/23/22
--- OUTSIDE RECORDS SUMMARY | 2024-12-29 09:36 | XMS_ITS | Encounter Summary ---
Author Organization Healthcare Address [address] [place] [address] Care Team Providers Care Registered Dental Assistant Name Role Phone Jevon Vazquez MD Primary Care Provider [phone] Encounter Details Date Type Department Care Team [...] Cellular Therapy Program [address] [address] 12/30/2024 9:00 AM EDT Office Visit [facility] Hematology/BMT and Cellular Therapy Program [address] [address] Bibiana Sepulveda, SUPERVISOR TOWER 800 [facility] [address] [place] [address] 12/30/2024 10:30 AM EDT Appointment [facility] 1 [address] [place] [address] 12/31/2024 3:00 PM EDT Appointment [facility] 1 [address] [place] [address] 01/01/2025 3:00 PM EDT Appointment [facility] 1 [address] [place] [address] 01/02/2025 2:00 PM EDT Appointment [facility] 1 [address] [place] [address] 01/03/2025 2:00 PM EDT Appointment [facility] 1 [address] [place] [address] 01/04/2025 2:00 PM EDT Appointment [facility]fusion 800 [place] [address] 01/05/2025 4:00 PM EDT Appointment [facility] 1 [address] [place] [address] documented as of this encounter Visit Diagnoses Not on filedocumented in this encounter Additional Health Concerns Assessment Noted Time A fall risk assessment has been complete d for the patient 09/30/2024 9:33 AM EDT A Body Mass Index follow-up plan has been documented for the patient 05/28/2024 1:52 PM EST documented as of this encounter Care Teams Registered Dental Assistant Relationship Specialty Start Date End Date Jevon Vazquez MD [address] [place] [address] [address]1 [address]1 [place] [address] PCP - General 03/23/22 documented as of this encounter
--- OUTSIDE RECORDS SUMMARY | 2024-12-29 09:36 | XMS_ITS | Clinical Summary ---
Author Organization [facility] Address [address] [place] [address] Phone Care Team Providers Care Colleter Name Role Phone Jevon Vazquez MD Primary Care Provider [phone] Allergies Active Allergy Reactions Criticality Noted Date [...] LAMINECTOMY; Surgeon: Ivan Bartholomew MD; Location: [facility] OR; Service: Spine Medical History [...] 5.6 % 11/14/2022 2:57 PM EDT PREFERRED [email or web address], [employer] Est. Avg Glucose 148 mg/dL 11/14/2022 2:57 PM EDT [employer], [facility] Blood VENOUS BLOOD / Unknown Venipuncture / Unknown 11/11/2022 3:46 PM EDT 11/11/2022 3:55 PM EDT Narrative [facility] - 11/14/2022 2:57 PM EDT REFERENCE RANGE: Normal: 4.0-5.6% Pre-diabetes: 5.7-6.4% Provisional diagnosis of diabetes: >6.4% Hgb F>10% and anything which shortens red cell survival, such as hemolytic anemia, or unstable hemoglobin variants such as HbSS, HbSC, or HbCC, will lower the HbA1c value associated with a given level of glycemic control. us Lexi Maloney DO CHEMISTRY ORDERABLES Final R esult [facility] [employer] [facility] [address] , [address] [place] [id number] * (ABNORMAL) BASIC METABOLIC PANEL (11/11/2022 3:46 [...] recommended by the National Kidney Foundation - [place] Society of Nephrology Task Force. Blood VENOUS BLOOD / Unknown Venipuncture / Unknown 11/11/2022 3:46 PM EDT 11/11/2022 3:54 PM EDT us Leona Hanna DO CHEMISTRY ORDERABLES Final Res ult [facility] 1 [place] [address] * DX BONE DENSITY AXIAL SKELETON (07/25/2022 9:14 AM EDT) Anatomical Region Laterality Modality Dexa Scan 07/25/2022 Narrative 07/25/2022 3:45 PM EDT Indication: The patient is a female age 65 or older who requires a bone density assessment. Study was performed on [employer] 5. Bone Density: Region BMD T-score Z-score [...] Insurance [place]ICARE [place] [address] [place] [address] MEDICARE SUPPLEMENT MEDICARE [place] PART A AND B Member Subscriber Plan / Payer (Ef fective 2016-Present) Name:Ashly Hernández Member ID:[id number] Relation to Subscriber:Self Name:Ashly Hernández Subscriber ID:[id number] Payer ID:Not on file Group ID:Not on file Type:Not on file Address: [address] MEDICARE SUPPLEMENT MED[place]ARE [place] PART A & B MEDICARE [place] PART A AND B Member Subscriber Plan / Payer (Ef fective 2016-Present) Name:Ashly Hernández Member ID:[id number] Relation to Subscriber:Self Name:Ashly Hernández Subscriber ID:[id number] Payer ID:Not on file Group ID:Not on file Type:Not on file Address: [address] MEDICARE SUPPLEMENT [employer] MEDICARE [place] PART A AND B [address] MEDICARE SUPPLEMENT Advance Directives For more information, please contact: [phone] * Full Code (Latest Code Status on File) Date Activated Date Inactivated Comments 11/14/2022 6:53 PM 11/16/2022 7:37 PM * Full Code Date Activated Date Inactivated Comments 11/12/2022 5:17 AM 11/14/2022 6:47 PM Care Teams Colleter Relationship Specialty Start Date End Date Jevon Vazquez MD [address] [place] [address] PCP - General Family Medicine 11/10/22
--- OUTSIDE RECORDS SUMMARY | 2024-12-29 09:36 | XMS_ITS | Encounter Summary ---
Author Organization Healthcare Address [address] [place] [address] Care Team Providers Care Substance Abuse Counselor Name Role Phone Jevon Vazquez MD Primary Care Provider [phone] Encounter Details Date Type Department Care Team [...] Hematology/BMT and Cellular Therapy Program [address] [address] 12/30/2024 9:00 AM EDT Office Visit [facility] Hematology/BMT and Cellular Therapy Program [address] [address] Bibiana Sepulveda, SENIOR DATA ARCHITECT 800 [facility] [address] [place] [address] 12/30/2024 10:30 AM EDT Appointment [facility] 1 [address] [place] [address] 12/31/2024 3:00 PM EDT Appointment [facility] 1 [address] [place] [address] 01/01/2025 3:00 PM EDT Appointment [facility] 1 [address] [place] [address] 01/02/2025 2:00 PM EDT Appointment [facility] 1 [address] [place] [address] 01/03/2025 2:00 PM EDT Appointment [facility] 1 [address] [place] [address] 01/04/2025 2:00 PM EDT Appointment [facility]fusion [address] [place] [address] 01/05/2025 4:00 PM EDT Appointment [facility] 1 [address] [place] [address] documented as of this encounter Visit Diagnoses [...] Date End Date Jevon Vazquez MD [address] [place] [address] [address]1 [address]1 [place] [address] PCP - General 03/23/22 documented as of this encounter
--- OUTSIDE RECORDS SUMMARY | 2024-12-29 09:36 | XMS_ITS | Encounter Summary ---
Author Organization Healthcare Address [address] [place] [id number] Care Team Providers Care Bell Cleaner Name Role Phone Jevon Vazquez MD Primary Care Provider [phone] Encounter Details Date Type Department Care Team ([facility] Contact Info) Description 11/13/2024 Orders Only [facility] Hematology/BMT and Cellular Therapy Program [address] [phone] 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, RN [facility] Acute myeloid leukemia not [...] Hematology/BMT and Cellular Therapy Program [address] [phone] 12/30/2024 9:00 AM EDT Office Visit [facility] CC Hematology/BMT and Cellular Therapy Program [address] [phone] Bibiana Sepulveda, CHILD DEVELOPMENT DIRECTOR 800 [facility] [address] [place] [address] 12/30/2024 10:30 AM EDT Appointment [facility] 1 [address] [place] [address] 12/31/2024 3:00 PM EDT Appointment [facility] 1 [address] [place] [address] 01/01/2025 3:00 PM EDT Appointment [facility] 1 [address] [place] [address] 01/02/2025 2:00 PM EDT Appointment [facility] 1 [address] [place] [address] 01/03/2025 2:00 PM EDT Appointment [facility] 1 [address] [place] [address] 01/04/2025 2:00 PM EDT Appointment [facility] In[facility] [address] [place] [address] 01/05/2025 4:00 PM EDT Appointment [facility] 1 [address] [place] [address] Scheduled Orders Name Type Priority Associated Diagnoses [...] documented as of this encounter Care Teams Bell Cleaner Relationship Specialty Start Date End Date Jevon Vazquez MD [address] [place] [address] #1 [address]1 [place] [address] PCP - General 03/23/22 documented as of this encounter
--- OUTSIDE RECORDS SUMMARY | 2024-12-29 09:36 | XMS_ITS | Encounter Summary ---
Author Organization [facility] Address [address] [place] [address] Care Team Providers Care Applied Psychology Teacher Name Role Phone Jevon Vazquez MD Primary Care Provider [phone] Encounter Details Date Type Department Care Team ([facility] Contact Info) Description 11/12/2024 Telephone [facility] Hematology/BMT and Cellular Therapy Program [address] [address] Zonia Hoffman, SURGICAL RESIDENT [address] [facility] [address] [place] [address] Social History Tobacco Use Types Packs/Day Years [...] Hematology/BMT and Cellular Therapy Program [address] [place] [address] 12/30/2024 9:00 AM EDT Office Visit PAV Hematology/BMT and Cellular Therapy Program 750 [facility] [address] Bibiana Sepulveda, SURGICAL RESIDENT [address] [facility] [address] [place] [address] 12/30/2024 10:30 AM EDT Appointment [facility] 1 [address] [place] [address] 12/31/2024 3:00 PM EDT Appointment [facility] 1 [address] [place] [address] 01/01/2025 3:00 PM EDT Appointment [facility] 1 [address] [place] [address] 01/02/2025 2:00 PM EDT Appointment [facility] 1 [address] [place] [address] 01/03/2025 2:00 PM EDT Appointment [facility] 1 [address] [place] [address] 01/04/2025 2:00 PM EDT Appointment [facility] Infusion 800 [place] [address] 01/05/2025 4:00 PM EDT Appointment [facility] 1 [address] [place] [address] documented as of this encounter Visit Diagnoses Not on filedocumented in this encounter Additional Health Concerns Assessment Noted Time A fall risk assessment has been complete d for the patient 09/30/2024 9:33 AM EDT A Body Mass Index follow-up plan has been documented for the patient 05/28/2024 1:52 PM EST documented as of this encounter Care Teams Applied Psychology Teacher Relationship Specialty Start Date End Date Jevon Vazquez MD [address] [place] [address] #1 [address]1 [place] [address] PCP - General 03/23/22 documented as of this encounter
[2024-12-29 09:38] LABS: Alanine Aminotransferase 12 U/L (12-78); Albumin Level 3.8 g/dl (3.5-5.0); Albumin/Globulin Ratio 1.7 (1.1-1.8); Alkaline Phosphatase 47 U/L (38-126); Anion Gap 10.6 mEq/L (5-15); Aspartate Amino Transferase 32 U/L (14-36); Bilirubin,Total 0.5 mg/dl (0.2-1.3); Blood Urea Nitrogen 22 mg/dl (7-17); Calcium 9.3 mg/dl (8.4-10.2); Carbon Dioxide 24 mmol/L (22.0-30.0); Chloride 106 mmol/L (98-107); Creatinine,Serum 1.10 mg/dl (0.52-1.04); Estimated Glomerular Filt Rate 49 ml/min (>60); GFR (African American) 59 ML/MIN (>60); Globulin 2.3 g/dL (1.3-3.2); Glucose 132 mg/dl (74-100); Potassium 3.6 mmoL/L (3.5-5.1); Sodium 137 mmol/L (136-145); Total Protein,Serum 6.1 g/dl (6.3-8.2)
[2024-12-29 09:45] LABS: Platelet Count 14 K/mm3 (142-424); White Blood Count 1.5 K/mm3 (4.8-10.8)
[2024-12-29 10:08] LABS: RBC Morphology Normal; Total Cells Counted 100
== END 2024-12-29 09:52 | disposition home or self-care (01) ==
LOC: INF 09:10
PROVIDERS: PCP Family Medicine; Visit Provider Internal Medicine Medical Oncology
DX: C92.00 Acute myeloblastic leukemia, not having achieved remission (principal)
CPT/HCPCS: 36591; 80053; 85007; 85025; J1642

== ENCOUNTER 2025-01-01 08:57 | Outpatient (CLI) | payer MEDICARE, BC, SELFPAY ==
[2025-01-01] VITALS (7 sets, daily range): BP systolic 113–133; BP diastolic 49–57; PULSE 72–79; RESP 18–72; TEMP 36.2–36.5; O2SAT 96–97
[2025-01-01 09:17] LABS: Hematocrit 25.6 % (37.0-47.0); Hemoglobin 8.7 g/dL (12.2-16.2); Immature Granulocytes % 0 %; Mean Corpuscular HGB Conc 34.0 g/dL (31.8-35.4); Mean Corpuscular Hemoglobin 31.3 pg (27.0-31.2); Mean Corpuscular Volume 92.1 fl (81-99); Nucleated Red Blood Cells % 0 %; Red Blood Count 2.78 M/mm3 (4.20-5.40); Red Cell Distribution Width-SD 71.0 fL
[2025-01-01 09:22] LABS: Albumin Level 3.7 g/dl (3.5-5.0); Chloride 105 mmol/L (98-107); Potassium 3.8 mmoL/L (3.5-5.1); Sodium 138 mmol/L (136-145)
[2025-01-01 09:25] LABS: Alanine Aminotransferase 11 U/L (12-78); Albumin/Globulin Ratio 1.6 (1.1-1.8); Alkaline Phosphatase 47 U/L (38-126); Anion Gap 11.8 mEq/L (5-15); Aspartate Amino Transferase 33 U/L (14-36); Bilirubin,Total 0.6 mg/dl (0.2-1.3); Blood Urea Nitrogen 23 mg/dl (7-17); Calcium 9.6 mg/dl (8.4-10.2); Carbon Dioxide 25 mmol/L (22.0-30.0); Creatinine,Serum 1.10 mg/dl (0.52-1.04); Estimated Glomerular Filt Rate 49 ml/min (>60); GFR (African American) 59 ML/MIN (>60); Globulin 2.3 g/dL (1.3-3.2); Glucose 139 mg/dl (74-100); Total Protein,Serum 6.0 g/dl (6.3-8.2)
[2025-01-01 09:27] LABS: Platelet Count 6 K/mm3 (142-424); White Blood Count 1.6 K/mm3 (4.8-10.8)
--- NOTE | 2025-01-01 09:33 | PC.NURSE ---
0933-collected type and cross with angi, bus van driver to witness draw.
[2025-01-01 09:54] LABS: RBC Morphology Normal; Total Cells Counted 100
[2025-01-01] MEDS: 0.9 % SODIUM CHLORIDE 250 ML 25 ML IV (13:31)
[2025-01-01] MEDS: SODIUM CHLORIDE 0.9% 10ML FLUSH SYRINGE 10 ML IV (14:11)
== END 2025-01-01 23:59 | disposition home or self-care (01) ==
PROVIDERS: PCP Family Medicine; Visit Provider Internal Medicine Medical Oncology
DX: C92.00 Acute myeloblastic leukemia, not having achieved remission (principal)
CPT/HCPCS: 36430; 80053; 85007; 85025; 85027; 86900; 86901; J1642; J7050; P9034

== ENCOUNTER 2025-01-05 08:59 | Outpatient (CLI) | payer MEDICARE, BC, SELFPAY ==
[2025-01-05] VITALS (9 sets, daily range): BP systolic 107–129; BP diastolic 44–51; PULSE 67–84; RESP 14–18; TEMP 36.1–36.4; O2SAT 94–100
[2025-01-05 09:27] LABS: Hematocrit 24.0 % (37.0-47.0); Hemoglobin 8.0 g/dL (12.2-16.2); Immature Granulocytes % 0 %; Mean Corpuscular HGB Conc 33.3 g/dL (31.8-35.4); Mean Corpuscular Hemoglobin 31.0 pg (27.0-31.2); Mean Corpuscular Volume 93.0 fl (81-99); Nucleated Red Blood Cells % 1.8 %; Red Blood Count 2.58 M/mm3 (4.20-5.40); Red Cell Distribution Width-SD 74.2 fL
[2025-01-05 09:29] LABS: Albumin Level 3.8 g/dl (3.5-5.0); Chloride 106 mmol/L (98-107); Potassium 3.6 mmoL/L (3.5-5.1); Sodium 140 mmol/L (136-145)
[2025-01-05 09:31] LABS: Blood Urea Nitrogen 22 mg/dl (7-17); Creatinine,Serum 1.00 mg/dl (0.52-1.04)
--- OUTSIDE RECORDS SUMMARY | 2025-01-05 09:31 | XMS_ITS | Encounter Summary ---
Author Organization Healthcare Address [address] [place] [address] Care Team Providers Care Highway Truck Driver Name Role Phone Jevon Vazquez MD Primary Care Provider [phone] Encounter Details Date Type Department Care Team [...] Care Team (Late st Contact Info) Description 01/12/2025 9:30 AM EDT Clinical Support [facility] Hematology/BMT and Cellular Therapy Program [address] [address] 01/12/2025 10:00 AM EDT Procedure Visit [facility] Hematology/BMT and Cellular Therapy Program [address] [address] Rebecca Barrientos PA 800 [facility] [address] [place] [address] documented as of this encounter Visit Diagnoses Not on filedocumented in this encounter Additional Health Concerns Assessment Noted Time A fall risk assessment has been complete d for the patient 09/30/2024 9:33 AM EDT A Body Mass Index follow-up plan has been documented for the patient 05/28/2024 1:52 PM EST documented as of this encounter Care Teams Highway Truck Driver Relationship Specialty Start Date End Date Jevon Vazquez MD [address] [place] [address] #1 [address]1 [place] [address] PCP - General 03/23/22 documented as of this encounter
--- OUTSIDE RECORDS SUMMARY | 2025-01-05 09:31 | XMS_ITS | Encounter Summary ---
Author Organization Healthcare Address [address] [place] [address] Care Team Providers Care Electric Switch Tester Name Role Phone Jevon Vazquez MD Primary Care Provider [phone] Encounter Details Date Type Department Care Team [...] Hematology/BMT and Cellular Therapy Program [address] [address] 01/12/2025 10:00 AM EDT Procedure Visit [facility] Hematology/BMT and Cellular Therapy Program [address] [place] [address] Rebecca Barrientos PA 800 [facility] [address] [place] [address] documented as of this encounter Visit Diagnoses Not on filedocumented in this encounter Additional Health Concerns Assessment Noted Time A fall risk assessment has been complete d for the patient 09/30/2024 9:33 AM EDT A Body Mass Index follow-up plan has been documented for the patient 05/28/2024 1:52 PM EST documented as of this encounter Care Teams Electric Switch Tester Relationship Specialty Start Date End Date Jevon Vazquez MD [address] [place] [address] #1 #1 [place] [address] PCP - General 03/23/22 documented as of this encounter
--- OUTSIDE RECORDS SUMMARY | 2025-01-05 09:31 | XMS_ITS | Encounter Summary ---
Author Organization [facility] Address [address] [place] [address] Care Team Providers Care Rn Compliance Name Role Phone Jevon Vazquez MD Primary Care Provider [phone] Encounter Details Date Type Department Care Team ([facility] Contact Info) Description 11/12/2024 Telephone P[facility] Hematology/BMT and Cellular Therapy Program [address] [phone] Zonia Hoffman, TRACK LEADER 800 [facility] [address] [place] [phone] Social History Tobacco Use Types Packs/Day Years [...] Department Care Team (Late Contact Info) Description 01/12/2025 9:30 AM EDT Clinical Support P[facility] CC Hematology/BMT and Cellular Therapy Program [address] [place] [address] 01/12/2025 10:00 AM EDT Procedure Visit P[facility] CC Hematology/BMT and Cellular Therapy Program 750 [facility] [place] [address] Rebecca Barrientos, PA 800 [facility] [address] [place] [phone] documented as of this encounter Visit Diagnoses Not on filedocumented in this encounter Additional Health Concerns Assessment Noted Time A fall risk assessment has been complete d for the patient 09/30/2024 9:33 AM EDT A Body Mass Index follow-up plan has been documented for the patient 05/28/2024 1:52 PM EST documented as of this encounter Care Teams Rn Compliance Relationship Specialty Start Date End Date Jevon Vazquez MD [address] [place] [address] #1 [address] [place] [address] PCP - General 03/23/22 documented as of this encounter
--- OUTSIDE RECORDS SUMMARY | 2025-01-05 09:31 | XMS_ITS | Encounter Summary ---
Author Organization Healthcare Address [address] [place] [address] Care Team Providers Care Fire Behavior Analyst Name Role Phone Jevon Vazquez MD Primary Care Provider [phone] Encounter Details Date Type Department Care Team ([facility] Contact Info) Description 12/29/2024 Telephone P[facility] CC Hematology/BMT and Cellular Therapy Program [address] [phone] Bibiana Sepulveda, SUPERVISORY CIVIL ENGINEER 800 [facility] [address] [place] [phone] Social History Tobacco Use Types Packs/Day Years [...] Telephone Encounter - 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 RN - 12/29/2024 1:34 PM EDT RN spoke with pt and discussed that wants to repeat BMBx. She verbalizes understanding. Database Modeler made aware. documented in this encounter Plan of Treatment Upcoming Encounters Date Type Department Care Team ([facility] Contact Info) Description 01/12/2025 9:30 AM EDT Clinical Support [facility] Hematology/BMT and Cellular Therapy Program [address] [place] [address] 01/12/2025 10:00 AM EDT Procedure Visit [facility] CC Hematology/BMT and Cellular Therapy Program [address] [address] Rebecca Barrientos, DANIELA 800 [facility] [address] [place] [phone] documented as of this encounter Visit Diagnoses Not on filedocumented in this encounter Additional Health Concerns Assessment Noted Time A fall risk assessment has been complete d for the patient 09/30/2024 9:33 AM EDT A Body Mass Index follow-up plan has been documented for the patient 05/28/2024 1:52 PM EST documented as of this encounter Care Teams Fire Behavior Analyst Relationship Specialty Start Date End Date Jevon Vazquez MD [address] [place] [address] #1 [address]1 [place] [address] PCP - General 03/23/22 documented as of this encounter
--- OUTSIDE RECORDS SUMMARY | 2025-01-05 09:31 | XMS_ITS | Encounter Summary ---
Author Organization Healthcare Address [address] [place] [address] Care Team Providers Care Sail Repairer Name Role Phone Jevon Vazquez MD Primary Care Provider [phone] Encounter Details Date Type Department Care Team [...] Hematology/BMT and Cellular Therapy Program [address] [address] 01/12/2025 10:00 AM EDT Procedure Visit [facility] CC Hematology/BMT and Cellular Therapy Program [address] [phone] Rebecca Barrientos PA 800 [facility] [address] [place] [phone] documented as of this encounter Visit Diagnoses Not on filedocumented in this encounter Additional Health Concerns Assessment Noted Time A fall risk assessment has been complete d for the patient 09/30/2024 9:33 AM EDT A Body Mass Index follow-up plan has been documented for the patient 05/28/2024 1:52 PM EST documented as of this encounter Care Teams Sail Repairer Relationship Specialty Start Date End Date Jevon Vazquez MD [address] [place] [address] #1 #1 [place] [address] PCP - General 03/23/22 documented as of this encounter
--- OUTSIDE RECORDS SUMMARY | 2025-01-05 09:31 | XMS_ITS | Encounter Summary ---
Author Organization Healthcare Address [address] [place] [address] Care Team Providers Care Watch Band Assembler Name Role Phone Jevon Vazquez MD Primary Care Provider [phone] Encounter Details Date Type Department Care Team [...] Hematology/BMT and Cellular Therapy Program [address] [address] 01/12/2025 10:00 AM EDT Procedure Visit [facility] CC Hematology/BMT and Cellular Therapy Program [address] [address] Rebecca Barrientos PA 800 [facility] [address] [place] [phone] documented as of this encounter Visit Diagnoses Not on filedocumented in this encounter Additional Health Concerns Assessment Noted Time A fall risk assessment has been complete d for the patient 09/30/2024 9:33 AM EDT A Body Mass Index follow-up plan has been documented for the patient 05/28/2024 1:52 PM EST documented as of this encounter Care Teams Watch Band Assembler Relationship Specialty Start Date End Date Jevon Vazquez MD [address] [place] [address] #1 #1 [place] [address] PCP - General 03/23/22 documented as of this encounter
--- OUTSIDE RECORDS SUMMARY | 2025-01-05 09:31 | XMS_ITS | Encounter Summary ---
Author Organization [facility] Address [address] [place] [address] Care Team Providers Care Specimen Collector Name Role Phone Jevon Vazquez MD Primary Care Provider [phone] Encounter Details Date Type Department Care Team (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 [...] Hematology/BMT and Cellular Therapy Program [address] [phone] 01/12/2025 10:00 AM EDT Procedure Visit [facility] CC Hematology/BMT and Cellular Therapy Program [address] [phone] Rebecca Barrientos, DANIELA 800 [facility] [address] [place] [phone] Scheduled Orders Name Type Priority Associated Diagnoses [...] documented as of this encounter Care Teams Specimen Collector Relationship Specialty Start Date End Date Jevon Vazquez MD [address] [place] [address] #1 #1 [place] [address] PCP - General 03/23/22 documented as of this encounter
--- OUTSIDE RECORDS SUMMARY | 2025-01-05 09:31 | XMS_ITS | Encounter Summary ---
Author Organization Healthcare Address [address] [place] [address] Care Team Providers Care Campus Coordinator Name Role Phone Jevon Vazquez MD Primary Care Provider [phone] Encounter Details Date Type Department Care Team [...] Hematology/BMT and Cellular Therapy Program [address] [address] 01/12/2025 10:00 AM EDT Procedure Visit [facility] CC Hematology/BMT and Cellular Therapy Program [address] [place] [address] Rebecca Barrientos PA 800 [place] [facility] [address] [place] [phone] documented as of this encounter Visit Diagnoses Not on filedocumented in this encounter Additional Health Concerns Assessment Noted Time A fall risk assessment has been complete d for the patient 09/30/2024 9:33 AM EDT A Body Mass Index follow-up plan has been documented for the patient 05/28/2024 1:52 PM EST documented as of this encounter Care Teams Campus Coordinator Relationship Specialty Start Date End Date Jevon Vazquez MD [address] [place] [address] #1 #1 [place] [address] PCP - General 03/23/22 documented as of this encounter
--- OUTSIDE RECORDS SUMMARY | 2025-01-05 09:31 | XMS_ITS | Encounter Summary ---
Author Organization [facility] Address [address] [place] [address] Care Team Providers Care Translation Director Name Role Phone Jevon Vazquez MD Primary Care Provider [phone] Reason for Visit * Reason Comments Med Refill Encounter Details Date Type Department Care Team ([facility] Contact Info) Description 12/09/2024 Refill [facility] CC Hematology/BMT and Cellular Therapy Program [address] [phone] Zonia Hoffman, SOUS CHEF 800 [facility] [address] [place] [phone] Social History Tobacco Use Types Packs/Day Years [...] Team ([facility] Contact Info) Description 01/12/2025 9:30 AM EDT Clinical Support P[facility] CC Hematology/BMT and Cellular Therapy Program [address] [phone] 01/12/2025 10:00 AM EDT Procedure Visit [facility] CC Hematology/BMT and Cellular Therapy Program [address] [phone] Rebecca Barrientos, DANIELA 800 [facility] [address] [place] [phone] documented as of this encounter Visit Diagnoses Not on filedocumented in this encounter Additional Health Concerns Assessment Noted Time A fall risk assessment has been complete d for the patient 09/30/2024 9:33 AM EDT A Body Mass Index follow-up plan has been documented for the patient 05/28/2024 1:52 PM EST documented as of this encounter Care Teams Translation Director Relationship Specialty Start Date End Date Jevon Vazquez MD [address] [place] [address] #1 [address]1 [place] [address] PCP - General 03/23/22 documented as of this encounter
--- OUTSIDE RECORDS SUMMARY | 2025-01-05 09:31 | XMS_ITS | Encounter Summary ---
Author Organization Healthcare Address [address] [place] [address] Care Team Providers Care Paving Crew Foreman Name Role Phone Jevon Vazquez MD Primary Care Provider [phone] Encounter Details Date Type Department Care Team ([facility] Contact Info) Description 12/11/2024 Telephone P[facility] CC Hematology/BMT and Cellular Therapy Program [address] [phone] New Mckinney MD 800 [facility] [address] [place] [phone] Social History Tobacco Use Types Packs/Day Years [...] PM EDT Rn uploaded recent labs to [facility] and rescheduled appointments to 12/30. RN returned call to patient with updated plan of care and schedule. documented in this encounter Plan of Treatment Upcoming Encounters Date Type Department Care Team (Late Contact Info) Description 01/12/2025 9:30 AM EDT Clinical Support [facility] CC Hematology/BMT and Cellular Therapy Program [address] [place] [address] 01/12/2025 10:00 AM EDT Procedure Visit PAV Hematology/BMT and Cellular Therapy Program [address] [phone] Rebecca Barrientos, DANIELA 800 [facility] [address] [place] [phone] documented as of this encounter Visit Diagnoses Not on filedocumented in this encounter Additional Health Concerns Assessment Noted Time A fall risk assessment has been complete d for the patient 09/30/2024 9:33 AM EDT A Body Mass Index follow-up plan has been documented for the patient 05/28/2024 1:52 PM EST documented as of this encounter Care Teams Paving Crew Foreman Relationship Specialty Start Date End Date Jevon Vazquez MD [address] [place] [address] #1 #1 [place] [address] PCP - General 03/23/22 documented as of this encounter
--- OUTSIDE RECORDS SUMMARY | 2025-01-05 09:31 | XMS_ITS | Clinical Summary ---
Author Organization [facility] Address [address] [place] [address] Care Team Providers Care Scorekeeper Name Role Phone Jevon Vazquez MD Primary Care Provider [phone] Allergies No known active allergies Medications amLODIPine [...] Encounters Date Type Department Care Team Description 01/05/2025 Refill [facility] Hematology/BMT and Cellular Therapy Program [address] [phone] Zonia Hoffman, TRUCK SALES REPRESENTATIVE 12/29/2024 Orders Only [facility] Hematology/BMT and Cellular Therapy Program [address] [phone] New Mckinney MD Myelodysplastic syndrome (CMS/HCC) (Primary Dx) 12/29/2024 Telephone [facility] Hematology/BMT and Cellular Therapy Program [address] [phone] Bibiana Sepulveda, TRUCK SALES REPRESENTATIVE 12/28/2024 Travel 12/26/2024 Travel 12/25/2024 Travel 12/24/2024 Travel 12/23/2024 Travel 12/11/2024 Telephone [facility] Hematology/BMT and Cellular Therapy Program [address] [place] [address] New Mckinney MD 12/10/2024 Travel 12/09/2024 Refill [facility] Hematology/BMT and Cellular Therapy Program [address] [phone] Zonia Hoffman, TRUCK SALES REPRESENTATIVE 11/27/2024 Telephone [facility] Hematology/BMT and Cellular Therapy Program [address] [place] [address] Zonia Hoffman, TRUCK SALES REPRESENTATIVE 11/26/2024 Travel 11/25/2024 Travel 11/24/2024 Travel 11/23/2024 Travel 11/22/2024 Travel 11/13/2024 Orders Only [facility] CC Hematology/BMT and Cellular Therapy Program 750 [facility], [address] [place] [phone] 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, whiskey proof reader 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) 11/12/2024 Travel 11/12/2024 Telephone [facility] Hematology/BMT and Cellular Therapy Program [address] [phone] Zonia Hoffman, TRUCK SALES REPRESENTATIVE 11/11/2024 Travel 11/10/2024 Travel 11/09/2024 Travel 11/08/2024 Travel 11/08/2024 Refill [facility] Hematology/BMT and Cellular Therapy Program [address] [phone] New Mckinney MD 11/07/2024 Travel 10/29/2024 Refill [facility] Hematology/BMT and Cellular Therapy Program [address] [phone] Zonia Hoffman, TRUCK SALES REPRESENTATIVE 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); Immunosuppressed status (CMS/HCC) 10/28/2024 Telephone [facility] Hematology/BMT and Cellular Therapy Program [address] [phone] Zonia Hoffman, TRUCK SALES REPRESENTATIVE 10/27/2024 Telephone [facility] Hematology/BMT and Cellular Therapy Program [address] [phone] Zonia Hoffman, TRUCK SALES REPRESENTATIVE 10/27/2024 Travel 10/26/2024 Travel 10/24/2024 Travel 10/23/2024 Travel 10/22/2024 Travel 10/15/2024 Refill [facility] Hematology/BMT and Cellular Therapy Program 750 [facility], [address] [place] [address] [place] [phone] New Mckinney MD 10/14/2024 Refill [facility] CC Hematology/BMT and Cellular Therapy Program 750 [facility], [address] [place] [address] [place] [phone] eNw Mckinney MD 10/13/2024 Telephone [facility] Hematology/BMT and Cellular Therapy Program 750 [facility], [address] [place] [address] [place] [address] Zonia Hoffman, TRUCK SALES REPRESENTATIVE 10/13/2024 Travel 10/12/2024 Travel 10/11/2024 Travel 10/09/2024 Travel 10/08/2024 Travel 10/08/2024 Orders Only [facility] CC Hematology/BMT and Cellular Therapy Program 750 [facility], [address] [place] [address] [place] [phone] 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, whiskey proof reader 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) 10/07/2024 Travel from Last 3 Months Immunizations Immunization [...] Hematology/BMT and Cellular Therapy Program [address] [address] 01/12/2025 10:00 AM EDT Procedure Visit [facility] CC Hematology/BMT and Cellular Therapy Program [address] [address] Rebecca Barrientos, DANIELA 800 [facility] [address] [place] [phone] Health Maintenance Due Date Last Done Comments [facility]-Medicare Annual Wellness (AWV) 1950 [facility]-/Child/Adol SDOH Screenings 1950 [facility]- SDOH Screenings 1968 [facility]-Adult SDOH Screenings 1968 CT Colonography 11/04/1995 Colonoscopy 11/04/1995 FIT-DNA 11/04/1995 FIT 11/04/1995 FOBT 11/04/1995 Sigmoidoscopy 11/04/1995 [facility]-Colorectal Cancer Screening 11/04/1995 [facility]-Breast Cancer Screening 2000 [facility]-RSV Vaccine: 60+ Years or (1 - Risk 60-74 years 1-dose series) 2010 [facility]-Zoster Vaccines (1 of 2) 05/16/2023 03/21/2023 [facility]-Bone Density Scan 07/25/2024 07/25/2022, 04/11/2 023 [id number] Vaccine ( season) 2024 02/18/2021, 07/10/2020, 06/12/2020 [facility]-Influenza Vaccine [...] this topic Medical Devices Implanted Type Area Wool Batting Worker Device Identifier Shelf Expiration Date Model / Serial / Lot Port Clearvue Power 8fr - [id number] Implanted:Qty: 1 on 01/21/2024 by Ness Sargent MD at [facility] [employer]-[id number] / / Procedures Procedure Name Priority Date/Time Associated Diagnosis Comments HEPATITIS C ANTIBODY W/REFLEX TO HCV QUANT PCR Routine 01/07/2024 8:42 AM EDT 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) from Last 3 Months or Most Recently Relevant to Health Maintenance Results * Hepatitis C Antibody w/Reflex to HCV Quant PCR (01/07/2024 8:42 AM EDT) Hepatitis C Antibody Negative Negative 01/07/2024 10:13 AM EDT [facility] Blood Venous blood specimen / Unknown Venipuncture / Unknown 01/07/2024 8:42 AM EDT 01/07/2024 9:25 AM EDT us New Mckinney MD LAB BLOOD ORDERABLES Final Re sult [facility] [address] [place] [address] from Last 3 Months or Most Recently Relevant to Health Maintenance Insurance MEDICARE [facility] Care Teams Scorekeeper Relationship Specialty Start Date End Date Jevon Vazquez MD [address] [place] [address] #1 #1 [place] [address] PCP - General 03/23/22
--- OUTSIDE RECORDS SUMMARY | 2025-01-05 09:31 | XMS_ITS | Encounter Summary ---
Author Organization [facility] Address [address] [place] [address] Care Team Providers Care Airport Electrician Name Role Phone Jevon Vazquez MD Primary Care Provider [phone] Reason for Visit * Reason Comments Med Refill Encounter Details Date Type Department Care Team ([facility] Contact Info) Description 11/08/2024 Refill [facility] CC Hematology/BMT and Cellular Therapy Program [address] [phone] New Mckinney MD [address] [facility] [address] [place] [phone] Social History Tobacco Use Types Packs/Day Years [...] ([facility] Contact Info) Description 01/12/2025 9:30 AM EDT Clinical Support [facility] CC Hematology/BMT and Cellular Therapy Program [address] [phone] 01/12/2025 10:00 AM EDT Procedure Visit [facility] CC Hematology/BMT and Cellular Therapy Program [address] [phone] Rebecca Barrientos, DANIELA 800 [facility] [address] [place] [address] documented as of this encounter Visit Diagnoses Not on filedocumented in this encounter Additional Health Concerns Assessment Noted Time A fall risk assessment has been complete d for the patient 09/30/2024 9:33 AM EDT A Body Mass Index follow-up plan has been documented for the patient 05/28/2024 1:52 PM EST documented as of this encounter Care Teams Airport Electrician Relationship Specialty Start Date End Date Jevon Vazquez MD [address] [place] [address] #1 [address]1 [place] [address] PCP - General 03/23/22 documented as of this encounter
--- OUTSIDE RECORDS SUMMARY | 2025-01-05 09:31 | XMS_ITS | Encounter Summary ---
Author Organization Healthcare Address [address] [place] [address] Care Team Providers Care Crosstie Inspector Name Role Phone Jevon Vazquez MD Primary Care Provider [phone] Encounter Details Date Type Department Care Team [...] Hematology/BMT and Cellular Therapy Program [address] [phone] 01/12/2025 10:00 AM EDT Procedure Visit [facility] CC Hematology/BMT and Cellular Therapy Program [address] [place] [address] Rebecca Barrientos PA 800 [facility] [address] [place] [phone] documented as of this encounter Visit Diagnoses Not on filedocumented in this encounter Additional Health Concerns Assessment Noted Time A fall risk assessment has been complete d for the patient 09/30/2024 9:33 AM EDT A Body Mass Index follow-up plan has been documented for the patient 05/28/2024 1:52 PM EST documented as of this encounter Care Teams Crosstie Inspector Relationship Specialty Start Date End Date Jevon Vazquez MD [address] [place] [address] #1 #1 [place] [address] PCP - General 03/23/22 documented as of this encounter
--- OUTSIDE RECORDS SUMMARY | 2025-01-05 09:31 | XMS_ITS | Encounter Summary ---
Author Organization [facility] Address [address] [place] [address] Care Team Providers Care Welding Equipment Sales Representative Name Role Phone Jevon Vazquez MD Primary Care Provider [phone] Reason for Referral * Genetic Testing (Routine) - Closed Specialty Diagnoses / Procedures Referred By Rebecca Referred To Contact Lab Diagnoses Myelodysplastic syndrome (CMS/HCC) Procedures Cytogenetics Testing, Oncology New Mckinney MD [address] [address] Phone: tel: fax: Referral ID Status Reason Start Date Expiration Date Visits Re quested Visits Authorized [id number] Closed 12/29/2024 06/30/2026 1 1 * Genetic Testing (Routine) - Authorized Specialty Diagnoses / Procedures [facility]erred By [facility] Referred To Contact Lab Diagnoses Myelodysplastic syndrome (CMS/HCC) Procedures Leukemia/Lymphoma - Immunophenotyping by Flow Cytometry New Mckinney MD 800 [facility] [address] [address] Phone: tel: fax: Referral ID Status Reason Start Date Expiration Date V isits Requested Visits Authorized [id number] Authorized 12/29/2024 06/30/2026 1 1 * Genetic Testing (Routine) - Authorized Specialty Diagnoses / Procedures [facility]erred By [facility] Referred To Contact Lab Diagnoses Myelodysplastic syndrome (CMS/HCC) Procedures Bone marrow exam New Mciknney MD 800 [facility] [address] [address] Phone: tel: fax: Referral ID Status Reason Start Date Expiration Date V isits Requested Visits Authorized [id number] Authorized 12/29/2024 06/30/2026 1 1 Encounter Details Date Type Department Care Team ([facility] Contact Info) Description 12/29/2024 Orders Only [facility] Hematology/BMT and Cellular Therapy Program [address] [phone] New Mckinney MD 800 [facility] [address] [address] Myelodysplastic syndrome (CMS/HCC) (Primary Dx) Social History Tobacco Use [...] Hematology/BMT and Cellular Therapy Program [address] [place] [address] 01/12/2025 10:00 AM EDT Procedure Visit [facility] Hematology/BMT and Cellular Therapy Program [address] [address] Rebecca Barrientos PA 800 [facility] [address] [address] Scheduled Orders Name Type Priority Associated Diagnoses Order Schedule Bone marrow exam Pathology and Cytology Routine Myelodysplastic syndrome (CMS/HCC) Expected: 12/29/2024 (Approximate), Expires: 07/02/2026 Leukemia/Lymphoma - Immunophenotyping by Flow Cytometry Lab Routine Myelodysplastic syndrome (CMS/HCC) Expected: 12/29/2024 (Approximate), Expires: 07/02/2026 Cytogenetics Testing, Oncology Lab Routine Myelodysplastic syndrome (CMS/HCC) Expected: 12/29/2024 (Approximate), Expires: 07/02/2026 documented as of this encounter Visit Diagnoses Diagnosis Myelodysplastic syndrome (CMS/HCC)- Primary Myelodysplastic syndrome, unspecified documented in this encounter Additional Health Concerns Assessment Noted Time A fall risk assessment has been complete d for the patient 09/30/2024 9:33 AM EDT A Body Mass Index follow-up plan has been documented for the patient 05/28/2024 1:52 PM EST documented as of this encounter Care Teams Welding Equipment Sales Representative Relationship Specialty Start Date End Date Jevon Vazquez MD [address] [place] [address] #1 #1 [place] [address] PCP - General 03/23/22 documented as of this encounter
--- OUTSIDE RECORDS SUMMARY | 2025-01-05 09:31 | XMS_ITS | Encounter Summary ---
Author Organization Healthcare Address [address] [place] [address] Care Team Providers Care Special Forces Senior Sergeant Name Role Phone Jevon Vazquez MD Primary Care Provider [phone] Encounter Details Date Type Department Care Team [...] Hematology/BMT and Cellular Therapy Program [address] [address] 01/12/2025 10:00 AM EDT Procedure Visit [facility] Hematology/BMT and Cellular Therapy Program [address] [place] [address] Rebecca Barrientos PA 800 [facility] [address] [place] [phone] documented as of this encounter Visit Diagnoses Not on filedocumented in this encounter Additional Health Concerns Assessment Noted Time A fall risk assessment has been complete d for the patient 09/30/2024 9:33 AM EDT A Body Mass Index follow-up plan has been documented for the patient 05/28/2024 1:52 PM EST documented as of this encounter Care Teams Special Forces Senior Sergeant Relationship Specialty Start Date End Date Jevon Vazquez MD [address] [place] [address] #1 #1 [place] [address] PCP - General 03/23/22 documented as of this encounter
--- OUTSIDE RECORDS SUMMARY | 2025-01-05 09:31 | XMS_ITS | Encounter Summary ---
Author Organization Healthcare Address [address] [place] [address] Care Team Providers Care Nursing Home Manager Name Role Phone Jevon Vazquez MD Primary Care Provider [phone] Encounter Details Date Type Department Care Team [...] Hematology/BMT and Cellular Therapy Program [address] [address] 01/12/2025 10:00 AM EDT Procedure Visit [facility] Hematology/BMT and Cellular Therapy Program [address] [place] [address] Rebecca Barrientos PA 800 [facility] [address] [place] [phone] documented as of this encounter Visit Diagnoses Not on filedocumented in this encounter Additional Health Concerns Assessment Noted Time A fall risk assessment has been complete d for the patient 09/30/2024 9:33 AM EDT A Body Mass Index follow-up plan has been documented for the patient 05/28/2024 1:52 PM EST documented as of this encounter Care Teams Nursing Home Manager Relationship Specialty Start Date End Date Jevon Vazquez MD [address] [place] [address] #1 #1 [place] [address] PCP - General 03/23/22 documented as of this encounter
--- OUTSIDE RECORDS SUMMARY | 2025-01-05 09:31 | XMS_ITS | Encounter Summary ---
Author Organization [facility] Address [address] [place] [address] Care Team Providers Care Blintze Roller Name Role Phone Jevon Vazquez MD Primary Care Provider [phone] Reason for Visit * Reason Comments Med Refill Encounter Details Date Type Department Care Team ([facility] Contact Info) Description 01/30/2024 Refill [facility] Hematology/BMT and Cellular Therapy Program [address] [phone] New Mckinney MD 800 [facility] [address] [place] [phone] Social History Tobacco Use Types Packs/Day Years [...] Encounters Date Type Department Care Team ([facility] Contact Info) Description 01/12/2025 9:30 AM EDT Clinical Support [facility] Hematology/BMT and Cellular Therapy Program [address] [phone] 01/12/2025 10:00 AM EDT Procedure Visit [facility] Hematology/BMT and Cellular Therapy Program [address] [phone] Rebecca Barrientos PA 800 [facility] [address] [place] [address] documented as of this encounter Visit Diagnoses Not on filedocumented in this encounter Additional Health Concerns Assessment Noted Time A fall risk assessment has been complete d for the patient 01/11/2024 9:16 AM EDT A Body Mass Index follow-up plan has been documented for the patient 01/21/2024 6:16 AM EDT documented as of this encounter Care Teams Blintze Roller Relationship Specialty Start Date End Date Jevon Vazquez MD [address] [place] [address] #1 [address]1 [place] [address] PCP - General 03/23/22 documented as of this encounter
--- OUTSIDE RECORDS SUMMARY | 2025-01-05 09:31 | XMS_ITS | Encounter Summary ---
Author Organization Healthcare Address [address] [place] [address] Care Team Providers Care Ventilating Equipment Installer Name Role Phone Jevon Vazquez MD Primary Care Provider [phone] Encounter Details Date Type Department Care Team [...] Hematology/BMT and Cellular Therapy Program [address] [phone] 01/12/2025 10:00 AM EDT Procedure Visit [facility] Hematology/BMT and Cellular Therapy Program [address] [place] [address] Rebecca Barrientos PA 800 [facility] [address] [place] [phone] documented as of this encounter Visit Diagnoses Not on filedocumented in this encounter Additional Health Concerns Assessment Noted Time A fall risk assessment has been complete d for the patient 09/30/2024 9:33 AM EDT A Body Mass Index follow-up plan has been documented for the patient 05/28/2024 1:52 PM EST documented as of this encounter Care Teams Ventilating Equipment Installer Relationship Specialty Start Date End Date Jevon Vazquez MD [address] [place] [address] #1 #1 [place] [address] PCP - General 03/23/22 documented as of this encounter
--- OUTSIDE RECORDS SUMMARY | 2025-01-05 09:31 | XMS_ITS | Encounter Summary ---
Author Organization Healthcare Address [address] [place] [address] Care Team Providers Care Locomotive Engineer Diesel Name Role Phone Jevon Vazquez MD Primary Care Provider [phone] Encounter Details Date Type Department Care Team [...] Hematology/BMT and Cellular Therapy Program [address] [phone] 01/12/2025 10:00 AM EDT Procedure Visit [facility] Hematology/BMT and Cellular Therapy Program [address] [place] [address] Rebecca Barrientos PA 800 [facility] [address] [place] [phone] documented as of this encounter Visit Diagnoses Not on filedocumented in this encounter Additional Health Concerns Assessment Noted Time A fall risk assessment has been complete d for the patient 09/30/2024 9:33 AM EDT A Body Mass Index follow-up plan has been documented for the patient 05/28/2024 1:52 PM EST documented as of this encounter Care Teams Locomotive Engineer Diesel Relationship Specialty Start Date End Date Jevon Vazquez MD [address] [place] [address] #1 #1 [place] [address] PCP - General 03/23/22 documented as of this encounter
--- OUTSIDE RECORDS SUMMARY | 2025-01-05 09:31 | XMS_ITS | Encounter Summary ---
Author Organization Healthcare Address [address] [place] [address] Care Team Providers Care Tool Setter Apprentice Name Role Phone Jevon Vazquez MD Primary Care Provider [phone] Encounter Details Date Type Department Care Team [...] Hematology/BMT and Cellular Therapy Program [address] [address] 01/12/2025 10:00 AM EDT Procedure Visit [facility] Hematology/BMT and Cellular Therapy Program [address] [phone] Rebecca Barrientos PA 800 [facility] [address] [place] [phone] documented as of this encounter Visit Diagnoses Not on filedocumented in this encounter Additional Health Concerns Assessment Noted Time A fall risk assessment has been complete d for the patient 09/30/2024 9:33 AM EDT A Body Mass Index follow-up plan has been documented for the patient 05/28/2024 1:52 PM EST documented as of this encounter Care Teams Tool Setter Apprentice Relationship Specialty Start Date End Date Jevon Vazquez MD [address] [place] [address] #1 #1 [place] [address] PCP - General 03/23/22 documented as of this encounter
--- OUTSIDE RECORDS SUMMARY | 2025-01-05 09:31 | XMS_ITS ---
Author Organization [facility] Address [address] [place] [address] Care Team Providers Care International Nurse Name Role Phone Jevon Vazquez MD Primary Care Provider [phone] Active Problems Problem Noted Date Diagnosed Date [...]
--- OUTSIDE RECORDS SUMMARY | 2025-01-05 09:31 | XMS_ITS | Encounter Summary ---
Author Organization Healthcare Address [address] [place] [address] Care Team Providers Care Frame Gate Mortiser Operator Name Role Phone Jevon Vazquez MD [...] Hematology/BMT and Cellular Therapy Program [address] [address] 01/12/2025 10:00 AM EDT Procedure Visit [facility] Hematology/BMT and Cellular Therapy Program [address] [place] [address] Rebecca Barrientos PA 800 [facility] [address] [place] [phone] documented as of this encounter Visit Diagnoses Not on filedocumented in this encounter Additional Health Concerns Assessment Noted Time A fall risk assessment has been complete d for the patient 09/30/2024 9:33 AM EDT A Body Mass Index follow-up plan has been documented for the patient 05/28/2024 1:52 PM EST documented as of this encounter Care Teams Frame Gate Mortiser Operator Relationship Specialty Start Date End Date Jevon Vazquez MD [address] [place] [address] #1 #1 [place] [address] PCP - General 03/23/22 documented as of this encounter
--- OUTSIDE RECORDS SUMMARY | 2025-01-05 09:31 | XMS_ITS | Clinical Summary ---
Author Organization [facility] Address [address] [place] [address] Care Team Providers Care Asset Protection Detective Name Role Phone David Vazquez Primary Care Provider [phone] Allergies No known active allergies Medications atorvastatin [...] series) 2025 Medical Devices Implanted Type Area Loan Supervisor Device Identifier Shelf Expiration Date Model / Serial / Lot Mis Ply Scr 6.5x50mm - [id number] Implanted:Qty : 1 on 01/30/2023 by Ivan Bartholomew MD at [facility] Screw N/A: Spine Lumbar [employer] [id number] / / Mis Ply Scr 6.5x45mm - [id number] Implanted:Qty : 3 on 01/30/2023 by Ivan Bartholomew MD at [facility] Screw N/A: Spine Lumbar [employer] [id number] / / Reline Mas Reduction Screw 7.5x45 - [id number] Implanted:Qty : 2 on 01/30/2023 by Ivan Bartholomew MD at [facility] Screw N/A: Spine Lumbar [employer] [id number] / / Grft Dbm Vesuvius Putty 5cc - [id number] Implanted:Qty : 1 on 01/30/2023 by Ivan Bartholomew MD at [facility] [employer] [id number] 04/20/2025 [id number] P / [id number] 1 / Putty I-Factor 5.0cc - [id number] Implanted:Qty : 1 on 01/30/2023 by Ivan Bartholomew MD at [facility] N/A: Spine Lumbar [employer] 03/15/2025 [id number] / / [id number] Modulus Xlw [id number] 10 Degree - [id number] Implanted:Qty : 1 on 01/30/2023 by Ivan Bartholomew MD at [facility] N/A: Spine Lumbar [employer] [id number] / / [id number] Modulus Xlw [id number] - [id number] Implanted:Qty : 1 on 01/30/2023 by Ivan Bartholomew MD at [facility] N/A: Spine Lumbar [employer] 09/28/2027 [id number] / / [id number] Reln Lock Scr 5.5mm Opn Tulip - [id number] Implanted:Qty : 6 on 01/30/2023 by Ivan Bartholomew MD at [facility] N/A: Spine Lumbar [employer] [id number] / / Reln Mas Ti Petar 5.5x70mm - [id number] Implanted:Qty : 2 on 01/30/2023 by Ivan Bartholomew MD at [facility] N/A: Spine Lumbar [employer] [id number] / / Procedures Procedure Name Priority Date/Time [...] Hgb A1C 6.0(H) 4.0 - 5.6 % [facility] Comment: Reference Ranges for [...] Glycohemoglobin Standardization program (NGSP) and [facility] Estimated Average Glucose 126(H) 68 - 114 mg/dL [facility] Whole Blood (Blood) 01/24/2023 2:32 PM EDT 01/24/2023 6:00 PM EDT us Ivan Bartholomew MD CHEMISTRY ORDERABLES Fin al Result [facility] [address] * (ABNORMAL) BASIC METABOLIC PANEL (BMP=EP1) (01/24/2023 2:32 PM EDT) Sodium 141 135 - 146 mmol/L [facility] Potassium 4.8 3.5 - 5.1 mmol/L [facility] Chloride 107 98 - 110 mmol/L [facility] CO2 24 22 - 29 mmol/L [facility] Anion Gap 10 5 - 13 mmol/L [facility] Comment:Anion gap calculatio n does not include potassium (K+) value. BUN 17 7 - 25 mg/dL [facility] Creatinine 1.20 0.50 - 1.20 mg/dL [facility] Glucose 125(H) 71 - 99 mg/dL [facility] Comment:Reference range (71- 99 mg/dL) refers only to fasting samples, and does not apply to non-fasting samples. eGFR CKD-EPI 2020 48 See Note [facility] Comment: eGFR calculated with 2020 CKD-EPI equation using creatinine, patient's age and gender. Other factors, especially muscle mass, may affect accuracy and need to be considered. Patient values should be interpreted as a trend. The reference interval is >60 mL/min/1.73m2. Calcium 10.3 8.5 - 10.5 mg/dL [facility] BUN/Creatinine Ratio 14 [facility] Serum 01/24/2023 2:32 PM EDT 01/24/2023 5:54 PM EDT us Lexi SUAREZ CHEMISTRY ORDERABLES Final Resu lt [facility] [address] from Last 3 Months or Most Recently Relevant to Health Maintenance Insurance MEDICARE PART A [facility] [address] [address] [place] [address] ANTH [place] Directives For more information, please contact: [phone] * Full Code (Latest Code Status on File) Date Activated Date Inactivated Comments 01/30/2023 9:13 AM No automated chest compression devices for [facility] Patients Care Teams Asset Protection Detective Relationship Specialty Start Date End Date David Vazquez [address] [place] [phone] PCP - General 01/24/23
--- OUTSIDE RECORDS SUMMARY | 2025-01-05 09:31 | XMS_ITS | Encounter Summary ---
Author Organization Healthcare Address [address] [place] [address] Care Team Providers Care Ink Jet Operator Name Role Phone Jevon Vazquez MD Primary Care Provider [phone] Encounter Details Date Type Department Care Team [...] Hematology/BMT and Cellular Therapy Program [address] [address] 01/12/2025 10:00 AM EDT Procedure Visit [facility] Hematology/BMT and Cellular Therapy Program [address] [address] Rebecca Barrientos PA 800 [facility] [address] [place] [phone] documented as of this encounter Visit Diagnoses Not on filedocumented in this encounter Additional Health Concerns Assessment Noted Time A fall risk assessment has been complete d for the patient 09/30/2024 9:33 AM EDT A Body Mass Index follow-up plan has been documented for the patient 05/28/2024 1:52 PM EST documented as of this encounter Care Teams Ink Jet Operator Relationship Specialty Start Date End Date Jevon Vazquez MD [address] [place] [address] #1 #1 [place] [address] PCP - General 03/23/22 documented as of this encounter
--- OUTSIDE RECORDS SUMMARY | 2025-01-05 09:31 | XMS_ITS | Clinical Summary ---
Author Organization [facility] Address [address] [place] [address] Phone Care Team Providers Care Billing Auditor Name Role Phone Jevon Vazquez MD Primary Care Provider [phone] Allergies Active Allergy Reactions Criticality Noted Date [...] 5.6 % 11/14/2022 2:57 PM EDT PREFERRED Spot Runner, [employer] Funding Est. Avg Glucose 148 mg/dL 11/14/2022 2:57 PM EDT [place], [facility] Blood VENOUS BLOOD / Unknown Venipuncture / Unknown 11/11/2022 3:46 PM EDT 11/11/2022 3:55 PM EDT Narrative [facility] - 11/14/2022 2:57 PM EDT REFERENCE [...] R esult [facility] Snapsort [facility] [address] [facility] , [address] [place] [id number] * (ABNORMAL) BASIC METABOLIC PANEL (11/11/2022 3:46 PM EDT) Sodium 136 136 - 145 mmol/L 11/11/2022 4:11 PM EDT [facility] Potassium 3.8 3.5 - 5.0 mmol/L 11/11/2022 4:11 PM EDT [facility] Chloride 102 98 - 107 mmol/L 11/11/2022 4:11 PM EDT [facility] Total CO2 24 22 - 29 mmol/L 11/11/2022 4:11 PM EDT [facility] Anion Gap 10 7 - 16 mmol/L 11/11/2022 4:11 PM EDT [facility] Calcium 10.1 8.8 - 10.4 mg/dL 11/11/2022 4:11 PM EDT [facility] Glucose Lvl 147(H) 82 - 100 mg/dL 11/11/2022 4:11 PM EDT [facility] BUN 15 8 - 23 mg/dL 11/11/2022 4:11 PM EDT [facility] Creatinine 0.82 0.51 - 1.30 mg/dL 11/11/2022 4:11 PM EDT [facility] eGFR (CKD-EPIcr 2020) 76 >=60 mL/min/1.7 3 m2 11/11/2022 4:11 PM EDT [facility] Comment:Estimated GFR was ca lculated using the CKD-EPIcr (2020) equation refit without race. The equation is recommended by the National Kidney Foundation - [place] [employer] of Nephrology Task Force. Blood VENOUS BLOOD / Unknown Venipuncture / Unknown 11/11/2022 3:46 PM EDT 11/11/2022 3:54 PM EDT us Leona Hanna DO CHEMISTRY ORDERABLES Final Res ult [facility] [address] [place] [address] * DX BONE DENSITY AXIAL SKELETON (07/25/2022 9:14 AM EDT) Anatomical Region Laterality Modality Dexa Scan 07/25/2022 Narrative 07/25/2022 3:45 PM EDT Indication: The patient is a female age 65 or older who requires a bone density assessment. Study was performed on [address]. Bone Density: Region BMD T-score Z-score [...] Insurance [place]ICARE [place] [address] [address] [place] [address] MEDICARE SUPPLEMENT MEDICARE [place] PART A AND B Member Subscriber Plan / Payer (Ef fective 2016-Present) Name:Ashly Hernández Member ID:[id number] Relation to Subscriber:Self Name:Ashly Hernández Subscriber ID:[id number] Payer ID:Not on file Group ID:Not on file Type:Not on file Address: [address] MEDICARE SUPPLEMENT MEDICARE [place] PART A & B MEDICARE [place] PART A AND B Member Subscriber Plan / Payer (Ef fective 2016-Present) Name:Ashly Hernández Member ID:[id number] Relation to Subscriber:Self Name:Ashly Hernández Subscriber ID:[id number] Payer ID:Not on file Group ID:Not on file Type:Not on file Address: [address] MEDICARE SUPPLEMENT [employer] MEDICARE [place] PART A AND B [address] MEDICARE SUPPLEMENT [place] Directives For more information, please contact: [phone] * Full Code (Latest Code Status on File) Date Activated Date Inactivated Comments 11/14/2022 6:53 PM 11/16/2022 7:37 PM * Full Code Date Activated Date Inactivated Comments 11/12/2022 5:17 AM 11/14/2022 6:47 PM Care Teams Billing Auditor Relationship Specialty Start Date End Date Jevon Vazquez MD [address] [place] [address] PCP - General Family Medicine 11/10/22
--- OUTSIDE RECORDS SUMMARY | 2025-01-05 09:31 | XMS_ITS | Encounter Summary ---
Author Organization [facility] Address [address] [place] [address] Care Team Providers Care Telemedicine Physician Name Role Phone Jevon Vazquez MD Primary Care Provider [phone] Reason for Visit * Reason Comments Med Refill Encounter Details Date Type Department Care Team ([facility] Contact Info) Description 01/05/2025 Refill [facility] Hematology/BMT and Cellular Therapy Program [address] [phone] Zonia Hoffman, PATIENT ACCOUNTS COORDINATOR 800 [facility] [address] [place] [phone] Social History Tobacco Use Types Packs/Day Years [...] Team ([facility] Contact Info) Description 01/12/2025 9:30 AM EDT Clinical Support [facility] Hematology/BMT and Cellular Therapy Program [address] [phone] 01/12/2025 10:00 AM EDT Procedure Visit [facility] Hematology/BMT and Cellular Therapy Program [address] [phone] Rebecca Barrientos, DANIELA 800 [facility] [address] [place] [phone] documented as of this encounter Visit Diagnoses Not on filedocumented in this encounter Additional Health Concerns Assessment Noted Time A fall risk assessment has been complete d for the patient 09/30/2024 9:33 AM EDT A Body Mass Index follow-up plan has been documented for the patient 05/28/2024 1:52 PM EST documented as of this encounter Care Teams Telemedicine Physician Relationship Specialty Start Date End Date Jevon Vazquez MD [address] [place] [address] #1 #1 [place] [address] PCP - General 03/23/22 documented as of this encounter
--- OUTSIDE RECORDS SUMMARY | 2025-01-05 09:31 | XMS_ITS | Encounter Summary ---
Author Organization Healthcare Address [address] [place] [address] Care Team Providers Care Venipuncturist Name Role Phone Jevon Vazquez MD Primary Care Provider [phone] Encounter Details Date Type Department Care Team [...] Hematology/BMT and Cellular Therapy Program [address] [address] 01/12/2025 10:00 AM EDT Procedure Visit [facility] Hematology/BMT and Cellular Therapy Program [address] [place] [address] Rebecca Barrientos PA 800 [facility] [address] [place] [phone] documented as of this encounter Visit Diagnoses Not on filedocumented in this encounter Additional Health Concerns Assessment Noted Time A fall risk assessment has been complete d for the patient 09/30/2024 9:33 AM EDT A Body Mass Index follow-up plan has been documented for the patient 05/28/2024 1:52 PM EST documented as of this encounter Care Teams Venipuncturist Relationship Specialty Start Date End Date Jevon Vazquez MD [address] [place] [address] #1 #1 [place] [address] PCP - General 03/23/22 documented as of this encounter
--- OUTSIDE RECORDS SUMMARY | 2025-01-05 09:31 | XMS_ITS | Encounter Summary ---
Author Organization Healthcare Address [address] [place] [address] Care Team Providers Care Manager Perioperative Name Role Phone Jevon Vazquez MD Primary Care Provider [phone] Encounter Details Date Type Department Care Team (Late Contact Info) Description 11/27/2024 Telephone [facility] Hematology/BMT and Cellular Therapy Program [address] [address] Zonia Hoffman, STATE WILDLIFE OFFICER 800 [facility] [address] [place] [phone] Social History Tobacco Use Types Packs/Day Years [...] Hematology/BMT and Cellular Therapy Program [address] [place] [address] 01/12/2025 10:00 AM EDT Procedure Visit PAV Hematology/BMT and Cellular Therapy Program [address] [place] [address] Rebecca Barrientos, DANIELA 800 [facility] [address] [place] [phone] documented as of this encounter Visit Diagnoses Not on filedocumented in this encounter Additional Health Concerns Assessment Noted Time A fall risk assessment has been complete d for the patient 09/30/2024 9:33 AM EDT A Body Mass Index follow-up plan has been documented for the patient 05/28/2024 1:52 PM EST documented as of this encounter Care Teams Manager Perioperative Relationship Specialty Start Date End Date Jevon Vazquez MD [address] [place] [address] #1 #1 [place] [address] PCP - General 03/23/22 documented as of this encounter
--- OUTSIDE RECORDS SUMMARY | 2025-01-05 09:31 | XMS_ITS | Encounter Summary ---
Author Organization Healthcare Address [address] [place] [address] Care Team Providers Care Electric Meter Inspector Name Role Phone Jevon Vazquez MD Primary Care Provider [phone] Encounter Details Date Type Department Care Team [...] Hematology/BMT and Cellular Therapy Program [address] [address] 01/12/2025 10:00 AM EDT Procedure Visit [facility] Hematology/BMT and Cellular Therapy Program [address] [address] Rebecca Barrientos PA 800 [facility] [address] [place] [phone] documented as of this encounter Visit Diagnoses Not on filedocumented in this encounter Additional Health Concerns Assessment Noted Time A fall risk assessment has been complete d for the patient 09/30/2024 9:33 AM EDT A Body Mass Index follow-up plan has been documented for the patient 05/28/2024 1:52 PM EST documented as of this encounter Care Teams Electric Meter Inspector Relationship Specialty Start Date End Date Jevon Vazquez MD [address] [place] [address] #1 #1 [place] [address] PCP - General 03/23/22 documented as of this encounter
--- OUTSIDE RECORDS SUMMARY | 2025-01-05 09:31 | XMS_ITS | Encounter Summary ---
Author Organization Healthcare Address [address] [place] [address] Care Team Providers Care Pipe Recovery Specialist Name Role Phone Jevon Vazquez MD Primary Care Provider [phone] Encounter Details Date Type Department Care Team [...] Hematology/BMT and Cellular Therapy Program [address] [address] 01/12/2025 10:00 AM EDT Procedure Visit [facility] CC Hematology/BMT and Cellular Therapy Program [address] [place] [address] Rebecca Barrientos PA 800 [facility] [address] [place] [phone] documented as of this encounter Visit Diagnoses Not on filedocumented in this encounter Additional Health Concerns Assessment Noted Time A fall risk assessment has been complete d for the patient 09/30/2024 9:33 AM EDT A Body Mass Index follow-up plan has been documented for the patient 05/28/2024 1:52 PM EST documented as of this encounter Care Teams Pipe Recovery Specialist Relationship Specialty Start Date End Date Jevon Vazquez MD [address] [place] [address] #1 #1 [place] [address] PCP - General 03/23/22 documented as of this encounter
--- OUTSIDE RECORDS SUMMARY | 2025-01-05 09:31 | XMS_ITS | Encounter Summary ---
Author Organization Healthcare Address [address] [place] [address] Care Team Providers Care Community Services Manager Name Role Phone Jevon Vazquez MD Primary Care Provider [phone] Encounter Details Date Type Department Care Team [...] Hematology/BMT and Cellular Therapy Program [address] [address] 01/12/2025 10:00 AM EDT Procedure Visit [facility] Hematology/BMT and Cellular Therapy Program [address] [place] [address] Rebecca Barrientos PA 800 [facility] [address] [place] [phone] documented as of this encounter Visit Diagnoses Not on filedocumented in this encounter Additional Health Concerns Assessment Noted Time A fall risk assessment has been complete d for the patient 09/30/2024 9:33 AM EDT A Body Mass Index follow-up plan has been documented for the patient 05/28/2024 1:52 PM EST documented as of this encounter Care Teams Community Services Manager Relationship Specialty Start Date End Date Jevon Vazquez MD [address] [place] [address] #1 #1 [place] [address] PCP - General 03/23/22 documented as of this encounter
[2025-01-05 09:32] LABS: Alanine Aminotransferase 14 U/L (12-78); Albumin/Globulin Ratio 1.7 (1.1-1.8); Alkaline Phosphatase 44 U/L (38-126); Anion Gap 12.6 mEq/L (5-15); Aspartate Amino Transferase 41 U/L (14-36); Bilirubin,Total 0.6 mg/dl (0.2-1.3); Calcium 9.7 mg/dl (8.4-10.2); Carbon Dioxide 25 mmol/L (22.0-30.0); Estimated Glomerular Filt Rate 54 ml/min (>60); GFR (African American) 66 ML/MIN (>60); Globulin 2.3 g/dL (1.3-3.2); Glucose 144 mg/dl (74-100); Total Protein,Serum 6.1 g/dl (6.3-8.2)
[2025-01-05 09:41] LABS: White Blood Count 1.6 K/mm3 (4.8-10.8)
[2025-01-05 09:42] LABS: Platelet Count 15 K/mm3 (142-424)
[2025-01-05 10:10] LABS: RBC Morphology Normal; Total Cells Counted 100
--- NOTE | 2025-01-05 12:27 | PC.NURSE ---
Addendum entered by Jenni Washington RN 01/05/25 12:35: patient called and relayed blood would be ready soon Original Note: Patient waited on lab results and sent home after results. will call when blood is ready
[2025-01-05] MEDS: ACETAMINOPHEN 325MG TAB 650 MG PO (12:30)
[2025-01-05] MEDS: 0.9 % SODIUM CHLORIDE 250 ML 25 ML IV (13:00)
[2025-01-05] MEDS: SODIUM CHLORIDE 0.9% 10ML FLUSH SYRINGE 10 ML IV (15:24)
== END 2025-01-05 23:59 | disposition home or self-care (01) ==
LOC: INF 09:00
PROVIDERS: PCP Family Medicine; Visit Provider Internal Medicine Medical Oncology
DX: C92.00 Acute myeloblastic leukemia, not having achieved remission (principal)
CPT/HCPCS: 36430; 80053; 85007; 85025; 85027; 86850; J1642; J7050; P9016

== ENCOUNTER 2025-01-08 09:00 | Outpatient (CLI) | payer MEDICARE, BC, SELFPAY ==
[2025-01-08] VITALS (10 sets, daily range): BP systolic 110–130; BP diastolic 45–58; PULSE 72–93; RESP 18; TEMP 36.2–36.6; O2SAT 100; BMI 21.8
--- OUTSIDE RECORDS SUMMARY | 2025-01-08 09:04 | XMS_ITS | Encounter Summary ---
Author Organization Healthcare Address [address] [place] [address] Care Team Providers Care Deicer Finisher Name Role Phone Jevon Vazquez MD Primary Care Provider [phone] Encounter Details Date Type Department Care Team [...] Hematology/BMT and Cellular Therapy Program [address] [address] 01/12/2025 10:00 AM EDT Procedure Visit [facility] Hematology/BMT and Cellular Therapy Program [address] [address] Rebecca Barrientos PA 800 [facility] [address] [place] [phone] documented as of this encounter Visit Diagnoses Not on filedocumented in this encounter Additional Health Concerns Assessment Noted Time A fall risk assessment has been complete d for the patient 09/30/2024 9:33 AM EDT A Body Mass Index follow-up plan has been documented for the patient 05/28/2024 1:52 PM EST documented as of this encounter Care Teams Deicer Finisher Relationship Specialty Start Date End Date Jevon Vazquez MD [address] [place] [address] #1 #1 [place] [address] PCP - General 03/23/22 documented as of this encounter
--- OUTSIDE RECORDS SUMMARY | 2025-01-08 09:04 | XMS_ITS | Clinical Summary ---
Author Organization [facility] Address [address] [place] [address] Care Team Providers Care Electrical Laboratory Technician Name Role Phone David Vazquez Primary Care Provider [phone] Allergies No known active allergies Medications atorvastatin [...] series) 2025 Medical Devices Implanted Type Area Pipeline Systems Operator Device Identifier Shelf Expiration Date Model / Serial / Lot Mis Ply Scr 6.5x50mm - [id number] Implanted:Qty : 1 on 01/30/2023 by Ivan Bartholomew MD at [facility] Screw N/A: Spine Lumbar [employer] [id number] / / Mis Ply Scr 6.5x45mm - [id number] Implanted:Qty : 3 on 01/30/2023 by Ivan Bartholomew MD at [facility] Screw N/A: Spine Lumbar [employer] [id number] / / Reline Mas Reduction Screw 7.5x45 - [id number] Implanted:Qty : 2 on 01/30/2023 by Ivan Bartholomew MD at [facility] Screw N/A: Spine Lumbar [employer] [id number] / / Grft Dbm Vesuvius Putty 5cc - [id number] Implanted:Qty : 1 on 01/30/2023 by Ivan Bartholomew MD at [facility] [employer] [id number] 04/20/2025 [id number] P / [id number] / Putty I-Factor 5.0cc - [id number] Implanted:Qty : 1 on 01/30/2023 by Ivan Bartholomew MD at [facility] N/A: Spine Lumbar [employer] 03/15/2025 [id number] / / [id number] Modulus Xlw [id number] 10 Degree - [id number] Implanted:Qty : 1 on 01/30/2023 by Ivan Bartholomew MD at [facility] N/A: Spine Lumbar [employer] [id number] / / [id number] Modulus Xlw [id number] - [id number] Implanted:Qty : 1 on 01/30/2023 by Ivan Bartholomew MD at [facility] N/A: Spine Lumbar [employer] 09/28/2027 [id number] / / [id number] Reln Lock Scr 5.5mm Opn Tulip - [id number] Implanted:Qty : 6 on 01/30/2023 by Ivan Bartholomew MD at [facility] N/A: Spine Lumbar [employer] [id number] / / Reln Mas Ti Petar 5.5x70mm - [id number] Implanted:Qty : 2 on 01/30/2023 by Ivan Bartholomew MD at [facility] N/A: Spine Lumbar [employer] [id number] / / Procedures Procedure Name Priority Date/Time [...] Glycohemoglobin Standardization program (NGSP) and [facility] Estimated Average Glucose 126(H) 68 - 114 mg/dL [facility] Whole Blood (Blood) 01/24/2023 2:32 PM EDT 01/24/2023 6:00 PM EDT us Ivan Bartholomew MD CHEMISTRY ORDERABLES Fin al Result [facility] [address] * (ABNORMAL) BASIC METABOLIC PANEL (BMP=EP1) [...] lt [facility] [address] from Last 3 Months or Most Recently Relevant to Health Maintenance Insurance MEDICARE PART A [facility] [address] [address] [place] [address] ANTH Advance Directives For more information, please contact: [phone] * Full Code (Latest Code Status on File) Date Activated Date Inactivated Comments 01/30/2023 9:13 AM No automated chest compression devices for [facility] Patients Care Teams Electrical Laboratory Technician Relationship Specialty Start Date End Date David Vazquez [address] [place] [phone] PCP - General 01/24/23
--- OUTSIDE RECORDS SUMMARY | 2025-01-08 09:04 | XMS_ITS | Encounter Summary ---
Author Organization Healthcare Address [address] [place] [address] Care Team Providers Care Switch Adjuster Name Role Phone Jevon Vazquez MD Primary Care Provider [phone] Encounter Details Date Type Department Care Team (Latest Contact Info) Description 01/07/2025 Travel Social History Tobacco Use Types Packs/Day [...] Hematology/BMT and Cellular Therapy Program [address] [address] 01/12/2025 10:00 AM EDT Procedure Visit [facility] Hematology/BMT and Cellular Therapy Program [address] [place] [address] Rebecca Barrientos PA 800 [facility] [address] [place] [phone] documented as of this encounter Visit Diagnoses Not on filedocumented in this encounter Additional Health Concerns Assessment Noted Time A fall risk assessment has been complete d for the patient 09/30/2024 9:33 AM EDT A Body Mass Index follow-up plan has been documented for the patient 05/28/2024 1:52 PM EST documented as of this encounter Care Teams Switch Adjuster Relationship Specialty Start Date End Date Jevon Vazquez MD [address] [place] [address] #1 #1 [place] [address] PCP - General 03/23/22 documented as of this encounter
--- OUTSIDE RECORDS SUMMARY | 2025-01-08 09:04 | XMS_ITS | Encounter Summary ---
Author Organization [facility] Address [address] [place] [address] Care Team Providers Care Overhead Crane Inspector Name Role Phone Jevon Vazquez MD Primary Care Provider [phone] Reason for Visit * Reason Comments Med Refill Encounter Details Date Type Department Care Team ([facility] Contact Info) Description 11/08/2024 Refill [facility] Hematology/BMT and Cellular Therapy Program [address] [phone] New Mckinney MD 800 [facility] [address] [place] [phone] Social History Tobacco Use Types Packs/Day Years [...] Care Team ([facility] Contact Info) Description 01/12/2025 9:30 AM EDT Clinical Support [facility] Hematology/BMT and Cellular Therapy Program [address] [phone] 01/12/2025 10:00 AM EDT Procedure Visit [facility] Hematology/BMT and Cellular Therapy Program [address] [address] Rebecca Barrientos, DANIELA 800 [facility] [address] [place] [address] documented as of this encounter Visit Diagnoses Not on filedocumented in this encounter Additional Health Concerns Assessment Noted Time A fall risk assessment has been complete d for the patient 09/30/2024 9:33 AM EDT A Body Mass Index follow-up plan has been documented for the patient 05/28/2024 1:52 PM EST documented as of this encounter Care Teams Overhead Crane Inspector Relationship Specialty Start Date End Date Jevon Vazquez MD [address] [place] [address] #1 [address]1 [place] [address] PCP - General 03/23/22 documented as of this encounter
--- OUTSIDE RECORDS SUMMARY | 2025-01-08 09:04 | XMS_ITS | Encounter Summary ---
Author Organization Healthcare Address [address] [place] [address] Care Team Providers Care Job Press Operator Name Role Phone Jevon Vazquez MD Primary Care Provider [phone] Encounter Details Date Type Department Care Team [...] Hematology/BMT and Cellular Therapy Program [address] [address] 01/12/2025 10:00 AM EDT Procedure Visit [facility] Hematology/BMT and Cellular Therapy Program [address] [address] Rebecca Barrientos PA 800 [facility] [address] [place] [phone] documented as of this encounter Visit Diagnoses Not on filedocumented in this encounter Additional Health Concerns Assessment Noted Time A fall risk assessment has been complete d for the patient 09/30/2024 9:33 AM EDT A Body Mass Index follow-up plan has been documented for the patient 05/28/2024 1:52 PM EST documented as of this encounter Care Teams Job Press Operator Relationship Specialty Start Date End Date Jevon Vazquez MD [address] [place] [address] #1 #1 [place] [address] PCP - General 03/23/22 documented as of this encounter
--- OUTSIDE RECORDS SUMMARY | 2025-01-08 09:04 | XMS_ITS | Encounter Summary ---
Author Organization Healthcare Address [address] [place] [address] Care Team Providers Care Licensed Insurance Agent Name Role Phone Jevon Vazquez MD Primary Care Provider [phone] Encounter Details Date Type Department Care Team [...] Hematology/BMT and Cellular Therapy Program [address] [address] 01/12/2025 10:00 AM EDT Procedure Visit [facility] CC Hematology/BMT and Cellular Therapy Program [address] [place] [address] Rebecca Barrientos PA 800 [facility] [address] [place] [phone] documented as of this encounter Visit Diagnoses Not on filedocumented in this encounter Additional Health Concerns Assessment Noted Time A fall risk assessment has been complete d for the patient 09/30/2024 9:33 AM EDT A Body Mass Index follow-up plan has been documented for the patient 05/28/2024 1:52 PM EST documented as of this encounter Care Teams Licensed Insurance Agent Relationship Specialty Start Date End Date Jevon Vazquez MD [address] [place] [address] #1 #1 [place] [address] PCP - General 03/23/22 documented as of this encounter
--- OUTSIDE RECORDS SUMMARY | 2025-01-08 09:04 | XMS_ITS | Clinical Summary ---
Author Organization [facility] Address [address] [place] [address] Phone Care Team Providers Care Centrifugal Station Operator Name Role Phone Jevon Vazquez MD Primary Care Provider [phone] Allergies Active Allergy Reactions Criticality Noted Date [...] Surgeon: Ivan Bartholomew MD; Location: [facility]; Service: Spine Medical History [...] 5.6 % 11/14/2022 2:57 PM EDT PREFERRED [employer] Est. Avg Glucose 148 mg/dL 11/14/2022 2:57 PM EDT [facility], [facility] Blood VENOUS BLOOD / Unknown Venipuncture / Unknown 11/11/2022 3:46 PM EDT 11/11/2022 3:55 PM EDT Narrative [facility] - 11/14/2022 2:57 PM EDT REFERENCE [...] Final R esult [facility] [employer] [facility] [address] [facility] , [address] [place] [id number] * (ABNORMAL) BASIC METABOLIC PANEL (11/11/2022 3:46 PM EDT) Sodium 136 136 - 145 mmol/L 11/11/2022 4:11 PM EDT [facility] Potassium 3.8 3.5 - 5.0 mmol/L 11/11/2022 4:11 PM EDT [facility] Chloride 102 98 - 107 mmol/L 11/11/2022 4:11 PM EDT [facility] Total CO2 24 22 - 29 mmol/L 11/11/2022 4:11 PM EDT [facility] Anion Gap 10 7 - 16 mmol/L 11/11/2022 4:11 PM EDT [facility] Calcium 10.1 8.8 - 10.4 mg/dL 11/11/2022 4:11 PM EDT [facility] Glucose Lvl 147(H) 82 - 100 mg/dL 11/11/2022 4:11 PM EDT [facility] BUN 15 8 - 23 mg/dL 11/11/2022 4:11 PM EDT [facility] Creatinine 0.82 0.51 - 1.30 mg/dL 11/11/2022 4:11 PM EDT [facility] eGFR (CKD-EPIcr 2020) 76 >=60 mL/min/1.7 3 m2 11/11/2022 4:11 PM EDT [facility] Comment:Estimated GFR was ca lculated using the CKD-EPIcr (2020) equation refit without race. The equation is recommended by the National Kidney Foundation - [place] [employer] of Nephrology Task Force. Blood VENOUS BLOOD / Unknown Venipuncture / Unknown 11/11/2022 3:46 PM EDT 11/11/2022 3:54 PM EDT us Leona Hanna DO CHEMISTRY ORDERABLES Final Res ult [facility] [address] [place] [address] * DX BONE DENSITY AXIAL SKELETON (07/25/2022 9:14 AM EDT) Anatomical Region Laterality Modality Dexa Scan 07/25/2022 Narrative 07/25/2022 3:45 PM EDT Indication: The patient is a female age 65 or older who requires a bone density assessment. Study was performed on [facility] 5. Bone Density: Region BMD T-score Z-score [...] Insurance [place]ICARE [place] [address] MEDICARE SUPPLEMENT [place]ICARE [place] PART A AND B Member Subscriber Plan / Payer (Ef fective 2016-Present) Name:Ashly Hernández Member ID:[id number] Relation to Subscriber:Self Name:Ashly Hernández Subscriber ID:[id number] Payer ID:Not on file Group ID:Not on file Type:Not on file Address: [address] MEDICARE SUPPLEMENT MEDICARE [place] PART A & B MEDICARE [place] PART A AND B Member Subscriber Plan / Payer (Ef fective 2016-Present) Name:Ashly Hernández Member ID:[id number] Relation to Subscriber:Self Name:Ashly Hernández Subscriber ID:[id number] Payer ID:Not on file Group ID:Not on file Type:Not on file Address: [address] MEDICARE SUPPLEMENT [employer] MEDICARE [place] PART A AND B [address] MEDICARE SUPPLEMENT Advance Directives For more information, please contact: [phone] * Full Code (Latest Code Status on File) Date Activated Date Inactivated Comments 11/14/2022 6:53 PM 11/16/2022 7:37 PM * Full Code Date Activated Date Inactivated Comments 11/12/2022 5:17 AM 11/14/2022 6:47 PM Care Teams Centrifugal Station Operator Relationship Specialty Start Date End Date Jevon Vazquez MD [address] [place] [address] PCP - General Family Medicine 11/10/22
--- OUTSIDE RECORDS SUMMARY | 2025-01-08 09:04 | XMS_ITS ---
Author Organization [facility] Address [address] [place] [address] Care Team Providers Care Co Supervisor Grounds And Landscape Name Role Phone Jevon Vazquez MD Primary Care Provider [phone] Active Problems Problem Noted Date Diagnosed Date [...]
--- OUTSIDE RECORDS SUMMARY | 2025-01-08 09:04 | XMS_ITS | Encounter Summary ---
Author Organization Healthcare Address [address] [place] [address] Care Team Providers Care Insulator Technician Name Role Phone Jevon Vazquez MD Primary Care Provider [phone] Encounter Details Date Type Department Care Team [...] Hematology/BMT and Cellular Therapy Program [address] [address] 01/12/2025 10:00 AM EDT Procedure Visit [facility] Hematology/BMT and Cellular Therapy Program [address] [address] Rebecca Barrientos PA 800 [facility] [address] [place] [phone] documented as of this encounter Visit Diagnoses Not on filedocumented in this encounter Additional Health Concerns Assessment Noted Time A fall risk assessment has been complete d for the patient 09/30/2024 9:33 AM EDT A Body Mass Index follow-up plan has been documented for the patient 05/28/2024 1:52 PM EST documented as of this encounter Care Teams Insulator Technician Relationship Specialty Start Date End Date Jevon Vazquez MD [address] [place] [address] #1 #1 [place] [address] PCP - General 03/23/22 documented as of this encounter
--- OUTSIDE RECORDS SUMMARY | 2025-01-08 09:04 | XMS_ITS | Encounter Summary ---
Author Organization Healthcare Address [address] [place] [address] Care Team Providers Care Counselor Marriage And Family Name Role Phone Jevon Vazquez MD Primary Care Provider [phone] Encounter Details Date Type Department Care Team ([facility] Contact Info) Description 12/11/2024 Telephone [facility] Hematology/BMT and Cellular Therapy Program [address] [address] New Mckinney MD 800 [facility] [address] [place] [phone] Social History Tobacco Use Types Packs/Day Years [...] PM EDT Rn uploaded recent labs to [facility] and rescheduled appointments to 12/30. RN returned call to patient with updated plan of care and schedule. documented in this encounter Plan of Treatment Upcoming Encounters Date Type Department Care Team (Late Contact Info) Description 01/12/2025 9:30 AM EDT Clinical Support [facility] Hematology/BMT and Cellular Therapy Program [address] [place] [address] 01/12/2025 10:00 AM EDT Procedure Visit PAV Hematology/BMT and Cellular Therapy Program [address] [address] Rebecca Barrientos, DANIELA 800 [facility] [address] [place] [phone] documented as of this encounter Visit Diagnoses Not on filedocumented in this encounter Additional Health Concerns Assessment Noted Time A fall risk assessment has been complete d for the patient 09/30/2024 9:33 AM EDT A Body Mass Index follow-up plan has been documented for the patient 05/28/2024 1:52 PM EST documented as of this encounter Care Teams Counselor Marriage And Family Relationship Specialty Start Date End Date Jevon Vazquez MD [address] [place] [address] #1 #1 [place] [address] PCP - General 03/23/22 documented as of this encounter
--- OUTSIDE RECORDS SUMMARY | 2025-01-08 09:04 | XMS_ITS | Encounter Summary ---
Author Organization Healthcare Address [address] [place] [address] Care Team Providers Care Bond Runner Name Role Phone Jevon Vazquez MD Primary Care Provider [phone] Encounter Details Date Type Department Care Team [...] Hematology/BMT and Cellular Therapy Program [address] [address] 01/12/2025 10:00 AM EDT Procedure Visit [facility] Hematology/BMT and Cellular Therapy Program [address] [address] Rebecca Barrientos PA [facility] [address] [place] [phone] documented as of this encounter Visit Diagnoses Not on filedocumented in this encounter Additional Health Concerns Assessment Noted Time A fall risk assessment has been complete d for the patient 09/30/2024 9:33 AM EDT A Body Mass Index follow-up plan has been documented for the patient 05/28/2024 1:52 PM EST documented as of this encounter Care Teams Bond Runner Relationship Specialty Start Date End Date Jevon Vazquez MD [address] [place] [address] #1 #1 [place] [address] PCP - General 03/23/22 documented as of this encounter
--- OUTSIDE RECORDS SUMMARY | 2025-01-08 09:04 | XMS_ITS | Encounter Summary ---
Author Organization Healthcare Address [address] [place] [address] Care Team Providers Care Forestry Workers Name Role Phone Jevon Vazquez MD Primary Care Provider [phone] Encounter Details Date Type Department Care Team [...] Hematology/BMT and Cellular Therapy Program [address] [address] 01/12/2025 10:00 AM EDT Procedure Visit [facility] Hematology/BMT and Cellular Therapy Program [address] [place] [address] Rebecca Barrientos PA 800 [facility] [address] [place] [phone] documented as of this encounter Visit Diagnoses Not on filedocumented in this encounter Additional Health Concerns Assessment Noted Time A fall risk assessment has been complete d for the patient 09/30/2024 9:33 AM EDT A Body Mass Index follow-up plan has been documented for the patient 05/28/2024 1:52 PM EST documented as of this encounter Care Teams Forestry Workers Relationship Specialty Start Date End Date Jevon Vazquez MD [address] [place] [address] #1 #1 [place] [address] PCP - General 03/23/22 documented as of this encounter
--- OUTSIDE RECORDS SUMMARY | 2025-01-08 09:04 | XMS_ITS | Encounter Summary ---
Author Organization [facility] Address [address] [place] [address] Care Team Providers Care Supervisor Speech Name Role Phone Jevon Vazquez MD Primary Care Provider [phone] Encounter Details Date Type Department Care Team ([facility] Contact Info) Description 01/07/2025 Telephone [facility] Hematology/BMT and Cellular Therapy Program [address] [phone] Sabine Clemons MD 800 [facility] [address] [place] [phone] Social History Tobacco Use Types Packs/Day Years [...] Upcoming Encounters Date Type Department Care Team ([facility] Contact Info) Description 01/12/2025 9:30 AM EDT Clinical Support [facility] Hematology/BMT and Cellular Therapy Program [address] [phone] 01/12/2025 10:00 AM EDT Procedure Visit [facility] Hematology/BMT and Cellular Therapy Program [address] [phone] Rebecca Barrientos DANIELA 800 [facility] [address] [place] [address] documented as of this encounter Visit Diagnoses Not on filedocumented in this encounter Additional Health Concerns Assessment Noted Time A fall risk assessment has been complete d for the patient 09/30/2024 9:33 AM EDT A Body Mass Index follow-up plan has been documented for the patient 05/28/2024 1:52 PM EST documented as of this encounter Care Teams Supervisor Speech Relationship Specialty Start Date End Date Jevon Vazquez MD [address] [place] [address] #1 #1 [place] [address] PCP - General 03/23/22 documented as of this encounter
--- OUTSIDE RECORDS SUMMARY | 2025-01-08 09:04 | XMS_ITS | Encounter Summary ---
Author Organization Healthcare Address [address] [place] [address] Care Team Providers Care Sports Medicine Specialist Name Role Phone Jevon Vazquez MD Primary Care Provider [phone] Encounter Details Date Type Department Care Team [...] Hematology/BMT and Cellular Therapy Program [address] [address] 01/12/2025 10:00 AM EDT Procedure Visit [facility] Hematology/BMT and Cellular Therapy Program [address] [phone] Rebecca Barrientos PA 800 [facility] [address] [place] [phone] documented as of this encounter Visit Diagnoses Not on filedocumented in this encounter Additional Health Concerns Assessment Noted Time A fall risk assessment has been complete d for the patient 09/30/2024 9:33 AM EDT A Body Mass Index follow-up plan has been documented for the patient 05/28/2024 1:52 PM EST documented as of this encounter Care Teams Sports Medicine Specialist Relationship Specialty Start Date End Date Jevon Vazquez MD [address] [place] [address] #1 #1 [place] [address] PCP - General 03/23/22 documented as of this encounter
--- OUTSIDE RECORDS SUMMARY | 2025-01-08 09:04 | XMS_ITS | Encounter Summary ---
Author Organization Healthcare Address [address] [place] [address] Care Team Providers Care Monument Erector Name Role Phone Jevon Vazquez MD Primary Care Provider [phone] Encounter Details Date Type Department Care Team [...] Hematology/BMT and Cellular Therapy Program [address] [address] 01/12/2025 10:00 AM EDT Procedure Visit [facility] Hematology/BMT and Cellular Therapy Program [address] [address] Rebecca Barrientos PA 800 [facility] [address] [place] [phone] documented as of this encounter Visit Diagnoses Not on filedocumented in this encounter Additional Health Concerns Assessment Noted Time A fall risk assessment has been complete d for the patient 09/30/2024 9:33 AM EDT A Body Mass Index follow-up plan has been documented for the patient 05/28/2024 1:52 PM EST documented as of this encounter Care Teams Monument Erector Relationship Specialty Start Date End Date Jevon Vazquez MD [address] [place] [address] #1 #1 [place] [address] PCP - General 03/23/22 documented as of this encounter
--- OUTSIDE RECORDS SUMMARY | 2025-01-08 09:04 | XMS_ITS | Encounter Summary ---
Author Organization [facility] Address [address] [place] [address] Care Team Providers Care Contamination Consultant Name Role Phone Jevon Vazquez MD Primary Care Provider [phone] Reason for Visit * Reason Comments Med Refill Encounter Details Date Type Department Care Team ([facility] Contact Info) Description 01/05/2025 Refill [facility] Hematology/BMT and Cellular Therapy Program [address] [phone] Zonia Hoffman, RN PEDIATRIC 800 [facility] [address] [place] [phone] Social History Tobacco Use Types Packs/Day Years [...] Care Team ([facility] Contact Info) Description 01/12/2025 9:30 AM EDT Clinical Support [facility] Hematology/BMT and Cellular Therapy Program [address] [phone] 01/12/2025 10:00 AM EDT Procedure Visit [facility] Hematology/BMT and Cellular Therapy Program [address] [phone] Rebecca Barrientos, DAINELA 800 [facility] [address] [place] [phone] documented as of this encounter Visit Diagnoses Not on filedocumented in this encounter Additional Health Concerns Assessment Noted Time A fall risk assessment has been complete d for the patient 09/30/2024 9:33 AM EDT A Body Mass Index follow-up plan has been documented for the patient 05/28/2024 1:52 PM EST documented as of this encounter Care Teams Contamination Consultant Relationship Specialty Start Date End Date Jevon Vazquez MD [address] [place] [address] #1 [address]1 [place] [address] PCP - General 03/23/22 documented as of this encounter
--- OUTSIDE RECORDS SUMMARY | 2025-01-08 09:04 | XMS_ITS | Encounter Summary ---
Author Organization Healthcare Address [address] [place] [address] Care Team Providers Care Roof Shingler Name Role Phone Jevon Vazquez MD Primary Care Provider [phone] Encounter Details Date Type Department Care Team [...] Hematology/BMT and Cellular Therapy Program [address] [phone] 01/12/2025 10:00 AM EDT Procedure Visit [facility] Hematology/BMT and Cellular Therapy Program [address] [phone] Rebecca Barrientos PA 800 [facility] [address] [place] [phone] documented as of this encounter Visit Diagnoses Not on filedocumented in this encounter Additional Health Concerns Assessment Noted Time A fall risk assessment has been complete d for the patient 09/30/2024 9:33 AM EDT A Body Mass Index follow-up plan has been documented for the patient 05/28/2024 1:52 PM EST documented as of this encounter Care Teams Roof Shingler Relationship Specialty Start Date End Date Jevon Vazquez MD [address] [place] [address] #1 #1 [place] [address] PCP - General 03/23/22 documented as of this encounter
--- OUTSIDE RECORDS SUMMARY | 2025-01-08 09:04 | XMS_ITS | Encounter Summary ---
Author Organization Healthcare Address [address] [place] [address] Care Team Providers Care Economics Faculty Member Name Role Phone Jevon Vazquez MD Primary Care Provider [phone] Encounter Details Date Type Department Care Team (Late Contact Info) Description 11/27/2024 Telephone [facility] Hematology/BMT and Cellular Therapy Program [address] [phone] Zonia Hoffman, AUTOMATIC PILOT MECHANIC 800 [facility] [address] [place] [phone] Social History Tobacco Use Types Packs/Day Years [...] Hematology/BMT and Cellular Therapy Program [address] [place] [address] 01/12/2025 10:00 AM EDT Procedure Visit [facility]AV Hematology/BMT and Cellular Therapy Program [address] [place] [address] Rebecca Barrientos, DANIELA 800 [facility] [address] [place] [phone] documented as of this encounter Visit Diagnoses Not on filedocumented in this encounter Additional Health Concerns Assessment Noted Time A fall risk assessment has been complete d for the patient 09/30/2024 9:33 AM EDT A Body Mass Index follow-up plan has been documented for the patient 05/28/2024 1:52 PM EST documented as of this encounter Care Teams Economics Faculty Member Relationship Specialty Start Date End Date Jevon Vazquez MD [address] [place] [address] #1 #1 [place] [address] PCP - General 03/23/22 documented as of this encounter
--- OUTSIDE RECORDS SUMMARY | 2025-01-08 09:04 | XMS_ITS | Encounter Summary ---
Author Organization Healthcare Address [address] [place] [address] Care Team Providers Care Commodity Director Name Role Phone Jevon Vazquez MD Primary Care Provider [phone] Encounter Details Date Type Department Care Team [...] Hematology/BMT and Cellular Therapy Program [address] [address] 01/12/2025 10:00 AM EDT Procedure Visit [facility] Hematology/BMT and Cellular Therapy Program [address] [phone] Rebecca Barrientos PA 800 [facility] [address] [place] [phone] documented as of this encounter Visit Diagnoses Not on filedocumented in this encounter Additional Health Concerns Assessment Noted Time A fall risk assessment has been complete d for the patient 09/30/2024 9:33 AM EDT A Body Mass Index follow-up plan has been documented for the patient 05/28/2024 1:52 PM EST documented as of this encounter Care Teams Commodity Director Relationship Specialty Start Date End Date Jevon Vazquez MD [address] [place] [address] #1 #1 [place] [address] PCP - General 03/23/22 documented as of this encounter
--- OUTSIDE RECORDS SUMMARY | 2025-01-08 09:04 | XMS_ITS | Encounter Summary ---
Author Organization Healthcare Address [address] [place] [address] Care Team Providers Care Recreation Manager Name Role Phone Jevon Vazquez MD Primary Care Provider [phone] Encounter Details Date Type Department Care Team [...] Hematology/BMT and Cellular Therapy Program [address] [address] 01/12/2025 10:00 AM EDT Procedure Visit [facility] Hematology/BMT and Cellular Therapy Program [address] [place] [address] Rebecca Barrientos PA 800 [facility] [address] [place] [phone] documented as of this encounter Visit Diagnoses Not on filedocumented in this encounter Additional Health Concerns Assessment Noted Time A fall risk assessment has been complete d for the patient 09/30/2024 9:33 AM EDT A Body Mass Index follow-up plan has been documented for the patient 05/28/2024 1:52 PM EST documented as of this encounter Care Teams Recreation Manager Relationship Specialty Start Date End Date Jevon Vazquez MD [address] [place] [address] #1 #1 [place] [address] PCP - General 03/23/22 documented as of this encounter
--- OUTSIDE RECORDS SUMMARY | 2025-01-08 09:04 | XMS_ITS | Encounter Summary ---
Author Organization Healthcare Address [address] [place] [address] Care Team Providers Care Produce Team Lead Name Role Phone Jevon Vazquez MD Primary Care Provider [phone] Encounter Details Date Type Department Care Team ([facility] Contact Info) Description 12/29/2024 Telephone [facility] Hematology/BMT and Cellular Therapy Program [address] [phone] Bibiana Sepulveda, EXHIBITIONS AND COLLECTIONS MANAGER 800 [facility] [address] [place] [phone] Social History Tobacco Use Types Packs/Day Years [...] wants to repeat BMBx. She verbalizes understanding. Disease Intervention Specialist made aware. documented in this encounter Plan of Treatment Upcoming Encounters Date Type Department Care Team ([facility] Contact Info) Description 01/12/2025 9:30 AM EDT Clinical Support [facility] Hematology/BMT and Cellular Therapy Program [address] [place] [address] 01/12/2025 10:00 AM EDT Procedure Visit [facility] Hematology/BMT and Cellular Therapy Program [address] [phone] Rebecca Barrientos, DANIELA 800 [facility] [address] [place] [phone] documented as of this encounter Visit Diagnoses Not on filedocumented in this encounter Additional Health Concerns Assessment Noted Time A fall risk assessment has been complete d for the patient 09/30/2024 9:33 AM EDT A Body Mass Index follow-up plan has been documented for the patient 05/28/2024 1:52 PM EST documented as of this encounter Care Teams Produce Team Lead Relationship Specialty Start Date End Date Jevon Vazquez MD [address] [place] [address] #1 #1 [place] [address] PCP - General 03/23/22 documented as of this encounter
--- OUTSIDE RECORDS SUMMARY | 2025-01-08 09:04 | XMS_ITS | Encounter Summary ---
Author Organization [facility] Address [address] [place] [address] Care Team Providers Care Director Fundraising Name Role Phone Jevon Vazquez MD Primary Care Provider [phone] Reason for Visit * Reason Comments Med Refill Encounter Details Date Type Department Care Team ([facility] Contact Info) Description 12/09/2024 Refill [facility] Hematology/BMT and Cellular Therapy Program [address] [phone] Zonia Hoffman, [employer] 800 [facility] [address] [place] [phone] Social History Tobacco Use Types Packs/Day Years [...] ([facility] Contact Info) Description 01/12/2025 9:30 AM EDT Clinical Support [facility] CC Hematology/BMT and Cellular Therapy Program [address] [phone] 01/12/2025 10:00 AM EDT Procedure Visit [facility] Hematology/BMT and Cellular Therapy Program [address] [phone] Rebecca Barrientos, DANIELA 800 [facility] [address] [place] [phone] documented as of this encounter Visit Diagnoses Not on filedocumented in this encounter Additional Health Concerns Assessment Noted Time A fall risk assessment has been complete d for the patient 09/30/2024 9:33 AM EDT A Body Mass Index follow-up plan has been documented for the patient 05/28/2024 1:52 PM EST documented as of this encounter Care Teams Director Fundraising Relationship Specialty Start Date End Date Jevon Vazquez MD [address] [place] [address] #1 #1 [place] [address] PCP - General 03/23/22 documented as of this encounter
--- OUTSIDE RECORDS SUMMARY | 2025-01-08 09:04 | XMS_ITS | Encounter Summary ---
Author Organization Healthcare Address [address] [place] [address] Care Team Providers Care Violin Mechanic Name Role Phone Jevon Vazquez MD Primary Care Provider [phone] Encounter Details Date Type Department Care Team [...] Hematology/BMT and Cellular Therapy Program [address] [address] 01/12/2025 10:00 AM EDT Procedure Visit [facility] Hematology/BMT and Cellular Therapy Program [address] [place] [address] Rebecca Barrientos PA 800 [facility] [address] [place] [phone] documented as of this encounter Visit Diagnoses Not on filedocumented in this encounter Additional Health Concerns Assessment Noted Time A fall risk assessment has been complete d for the patient 09/30/2024 9:33 AM EDT A Body Mass Index follow-up plan has been documented for the patient 05/28/2024 1:52 PM EST documented as of this encounter Care Teams Violin Mechanic Relationship Specialty Start Date End Date Jevon Vazquez MD [address] [place] [address] #1 #1 [place] [address] PCP - General 03/23/22 documented as of this encounter
--- OUTSIDE RECORDS SUMMARY | 2025-01-08 09:04 | XMS_ITS | Encounter Summary ---
Author Organization [facility] Address [address] [place] [address] Care Team Providers Care Produce Wrapper Name Role Phone Jevon Vazquez MD Primary Care Provider [phone] Reason for Visit * Reason Comments Med Refill Encounter Details Date Type Department Care Team ([facility] Contact Info) Description 01/30/2024 Refill [facility] CC Hematology/BMT and Cellular Therapy Program [address] [phone] New Mckinney MD 800 [facility] [address] [place] [phone] Social History Tobacco Use Types Packs/Day Years [...] Team ([facility] Contact Info) Description 01/12/2025 9:30 AM EDT Clinical Support [facility] CC Hematology/BMT and Cellular Therapy Program [address] [phone] 01/12/2025 10:00 AM EDT Procedure Visit [facility] CC Hematology/BMT and Cellular Therapy Program [address] [phone] Rebecca Barrientos PA 800 [facility] [address] [place] [address] documented as of this encounter Visit Diagnoses Not on filedocumented in this encounter Additional Health Concerns Assessment Noted Time A fall risk assessment has been complete d for the patient 01/11/2024 9:16 AM EDT A Body Mass Index follow-up plan has been documented for the patient 01/21/2024 6:16 AM EDT documented as of this encounter Care Teams Produce Wrapper Relationship Specialty Start Date End Date Jevon Vazquez MD [address] [place] [address] #1 #1 [place] [address] PCP - General 03/23/22 documented as of this encounter
--- OUTSIDE RECORDS SUMMARY | 2025-01-08 09:04 | XMS_ITS | Encounter Summary ---
Author Organization Healthcare Address [address] [place] [address] Care Team Providers Care Varnish Supervisor Name Role Phone Jevon Vazquez MD [...] Hematology/BMT and Cellular Therapy Program [address] [phone] 01/12/2025 10:00 AM EDT Procedure Visit [facility] CC Hematology/BMT and Cellular Therapy Program [address] [place] [address] Rebecca Barrientos PA 800 [facility] [address] [place] [phone] documented as of this encounter Visit Diagnoses Not on filedocumented in this encounter Additional Health Concerns Assessment Noted Time A fall risk assessment has been complete d for the patient 09/30/2024 9:33 AM EDT A Body Mass Index follow-up plan has been documented for the patient 05/28/2024 1:52 PM EST documented as of this encounter Care Teams Varnish Supervisor Relationship Specialty Start Date End Date Jevon Vazquez MD [address] [place] [address] #1 #1 [place] [address] PCP - General 03/23/22 documented as of this encounter
--- OUTSIDE RECORDS SUMMARY | 2025-01-08 09:04 | XMS_ITS | Encounter Summary ---
Author Organization [facility] Address [address] [place] [address] Care Team Providers Care Medical Diagnostic Radiographer Name Role Phone Jevon Vazquez MD Primary Care Provider [phone] Encounter Details Date Type Department Care Team ([facility] Contact Info) Description 11/13/2024 Orders Only [facility] Hematology/BMT and Cellular Therapy Program [address] [phone] 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, RN [facility] Acute myeloid leukemia [...] Hematology/BMT and Cellular Therapy Program [address] [phone] 01/12/2025 10:00 AM EDT Procedure Visit [facility] Hematology/BMT and Cellular Therapy Program [address] [phone] Rebecca Barrientos, DANIELA 800 [facility] [address] [place] [phone] Scheduled Orders Name Type Priority Associated Diagnoses [...] as of this encounter Care Teams Medical Diagnostic Radiographer Relationship Specialty Start Date End Date Jevon Vazquez MD [address] [place] [address] #1 #1 [place] [address] PCP - General 03/23/22 documented as of this encounter
--- OUTSIDE RECORDS SUMMARY | 2025-01-08 09:04 | XMS_ITS | Encounter Summary ---
Author Organization Healthcare Address [address] [place] [address] Care Team Providers Care Life Enrichment Manager Name Role Phone eJvon Vazquez MD Primary Care Provider [phone] Encounter Details Date Type Department Care Team (Latest Contact Info) Description 01/05/2025 Travel Social History Tobacco Use Types Packs/Day [...] Hematology/BMT and Cellular Therapy Program [address] [phone] 01/12/2025 10:00 AM EDT Procedure Visit [facility] Hematology/BMT and Cellular Therapy Program [address] [place] [address] Rebecca Barrientos PA 800 [facility] [address] [place] [phone] documented as of this encounter Visit Diagnoses Not on filedocumented in this encounter Additional Health Concerns Assessment Noted Time A fall risk assessment has been complete d for the patient 09/30/2024 9:33 AM EDT A Body Mass Index follow-up plan has been documented for the patient 05/28/2024 1:52 PM EST documented as of this encounter Care Teams Life Enrichment Manager Relationship Specialty Start Date End Date Jevon Vazquez MD [address] [place] [address] #1 #1 [place] [address] PCP - General 03/23/22 documented as of this encounter
--- OUTSIDE RECORDS SUMMARY | 2025-01-08 09:04 | XMS_ITS | Encounter Summary ---
Author Organization Healthcare Address [address] [place] [address] Care Team Providers Care Solar Site Assessment Specialist Name Role Phone Jevon Vazquez MD Primary Care Provider [phone] Encounter Details Date Type Department Care Team [...] Cellular Therapy Program [address] [phone] 01/12/2025 10:00 AM EDT Procedure Visit [facility] Hematology/BMT and Cellular Therapy Program [address] [place] [address] Rebecca Barrientos PA 800 [facility] [address] [place] [phone] documented as of this encounter Visit Diagnoses Not on filedocumented in this encounter Additional Health Concerns Assessment Noted Time A fall risk assessment has been complete d for the patient 09/30/2024 9:33 AM EDT A Body Mass Index follow-up plan has been documented for the patient 05/28/2024 1:52 PM EST documented as of this encounter Care Teams Solar Site Assessment Specialist Relationship Specialty Start Date End Date Jevon Vazquez MD [address] [place] [address] #1 #1 [place] [address] PCP - General 03/23/22 documented as of this encounter
--- OUTSIDE RECORDS SUMMARY | 2025-01-08 09:04 | XMS_ITS | Encounter Summary ---
Author Organization [facility] Address [address] [place] [address] Care Team Providers Care Booster Pump Operator Name Role Phone Jevon Vazquez MD Primary Care Provider Encounter Details Date Type Department Care Team ([facility] Contact Info) Description 11/12/2024 Telephone [facility] Hematology/BMT and Cellular Therapy Program [address] [phone] Zonia Hoffman, BUNCH BREAKER MACHINE OPERATOR 800 [facility] [address] [place] [phone] Social History Tobacco Use Types Packs/Day Years [...] Hematology/BMT and Cellular Therapy Program [address] [place] [address] 01/12/2025 10:00 AM EDT Procedure Visit [facility] Hematology/BMT and Cellular Therapy Program 750 [facility] [place] [address] Rebecca Barrientos, PA 800 [facility] [address] [place] [phone] documented as of this encounter Visit Diagnoses Not on filedocumented in this encounter Additional Health Concerns Assessment Noted Time A fall risk assessment has been complete d for the patient 09/30/2024 9:33 AM EDT A Body Mass Index follow-up plan has been documented for the patient 05/28/2024 1:52 PM EST documented as of this encounter Care Teams Booster Pump Operator Relationship Specialty Start Date End Date Jevon Vazquez MD [address] [place] [address] #1 [address] [place] [address] PCP - General 03/23/22 documented as of this encounter
--- OUTSIDE RECORDS SUMMARY | 2025-01-08 09:04 | XMS_ITS | Encounter Summary ---
Author Organization Healthcare Address [address] [place] [address] Care Team Providers Care Hand Cooper Helper Name Role Phone Jevon Vazquez MD Primary Care Provider [phone] Encounter Details Date Type Department Care Team [...] Hematology/BMT and Cellular Therapy Program [address] [phone] 01/12/2025 10:00 AM EDT Procedure Visit [facility] Hematology/BMT and Cellular Therapy Program [address] [place] [address] Rebecca Barrientos PA 800 [facility] [address] [place] [phone] documented as of this encounter Visit Diagnoses Not on filedocumented in this encounter Additional Health Concerns Assessment Noted Time A fall risk assessment has been complete d for the patient 09/30/2024 9:33 AM EDT A Body Mass Index follow-up plan has been documented for the patient 05/28/2024 1:52 PM EST documented as of this encounter Care Teams Hand Cooper Helper Relationship Specialty Start Date End Date Jevon Vazquez MD [address] [place] [address] #1 #1 [place] [address] PCP - General 03/23/22 documented as of this encounter
--- OUTSIDE RECORDS SUMMARY | 2025-01-08 09:04 | XMS_ITS | Encounter Summary ---
Author Organization [facility] Address [address] [place] [address] Care Team Providers Care Warehouse Order Filler Name Role Phone Jevon Vazquez MD Primary Care Provider [phone] Reason for Referral * Genetic Testing (Routine) - Closed Specialty Diagnoses / Procedures Referred By Rebecca Referred To Contact Lab Diagnoses Myelodysplastic syndrome (CMS/HCC) Procedures Cytogenetics Testing, Oncology New Mckinney MD [address] [address] Phone: tel: fax: Referral ID Status Reason Start Date Expiration Date Visits Re quested Visits Authorized [id number] Closed 12/29/2024 06/30/2026 1 1 * Genetic Testing (Routine) - Authorized Specialty Diagnoses / Procedures [facility] Referred To Contact Lab Diagnoses Myelodysplastic syndrome (CMS/HCC) Procedures Leukemia/Lymphoma - Immunophenotyping by Flow Cytometry New Mckinney MD 800 [facility] [address] [address] Phone: tel: fax: Referral ID Status Reason Start Date Expiration Date V isits Requested Visits Authorized [id number] Authorized 12/29/2024 06/30/2026 1 1 * Genetic Testing (Routine) - Authorized Specialty Diagnoses / Procedures [facility] Referred To Contact Lab Diagnoses Myelodysplastic syndrome (CMS/HCC) Procedures Bone marrow exam New Mckinney MD 800 [facility] [address] [address] Phone: tel: fax: Referral ID Status Reason Start Date Expiration Date V isits Requested Visits Authorized [id number] Authorized 12/29/2024 06/30/2026 1 1 Encounter Details Date Type Department Care Team ([facility] Contact Info) Description 12/29/2024 Orders Only [facility] Hematology/BMT and Cellular Therapy Program [address] [phone] New Mckinney MD 800 [facility] [address] [address] Myelodysplastic syndrome (CMS/HCC) (Primary Dx) [...] Hematology/BMT and Cellular Therapy Program [address] [place] [address] 01/12/2025 10:00 AM EDT Procedure Visit [facility] Hematology/BMT and Cellular Therapy Program [address] [place] [address] Rebecca Barrientos PA 800 [facility] [address] [address] Scheduled Orders Name Type Priority [...] documented as of this encounter Care Teams Warehouse Order Filler Relationship Specialty Start Date End Date Jevon Vazquez MD [address] [place] [address] #1 #1 [place] [address] PCP - General 03/23/22 documented as of this encounter
--- OUTSIDE RECORDS SUMMARY | 2025-01-08 09:04 | XMS_ITS | Encounter Summary ---
Author Organization [facility] Address [address] [place] [address] Care Team Providers Care Draw In Hand Name Role Phone Jevon Vazquez MD Primary Care Provider [phone] Reason for Visit * Reason Comments Med Refill Encounter Details Date Type Department Care Team ([facility] Contact Info) Description 01/07/2025 Refill [facility] Hematology/BMT and Cellular Therapy Program [address] [phone] Zonia Hoffman, CUSTODIAL AIDE 800 [facility] [address] [place] [phone] Social History Tobacco Use Types Packs/Day Years [...] Care Team ([facility] Contact Info) Description 01/12/2025 9:30 AM EDT Clinical Support [facility] Hematology/BMT and Cellular Therapy Program [address] [phone] 01/12/2025 10:00 AM EDT Procedure Visit [facility] Hematology/BMT and Cellular Therapy Program [address] [phone] Rebecca Barrientos, DANIELA 800 [facility] [address] [place] [phone] documented as of this encounter Visit Diagnoses Not on filedocumented in this encounter Additional Health Concerns Assessment Noted Time A fall risk assessment has been complete d for the patient 09/30/2024 9:33 AM EDT A Body Mass Index follow-up plan has been documented for the patient 05/28/2024 1:52 PM EST documented as of this encounter Care Teams Draw In Hand Relationship Specialty Start Date End Date Jevon Vazquez MD [address] [place] [address] #1 #1 [place] [address] PCP - General 03/23/22 documented as of this encounter
--- OUTSIDE RECORDS SUMMARY | 2025-01-08 09:04 | XMS_ITS | Clinical Summary ---
Author Organization [facility] Address [address] [place] [address] Care Team Providers Care Yarn Bleaching Machine Operator Name Role Phone Jevon Vazquez MD Primary Care Provider [phone] Allergies No known active allergies Medications amLODIPine [...] tablet by mouth twice daily 60 tablet 01/07/20 25 Active rosuvastatin (Crestor) 5 MG tablet TAKE 1 TABLET BY MOUTH ONCE DAILY AT NIGHT 90 tablet 01/08/20 25 Active rosuvastatin (Crestor) 5 MG tablet TAKE 1 TABLET BY MOUTH ONCE DAILY AT NIGHT 90 tablet 10/16/19 25 025 Discontinued potassium chloride CR (K-Tab) 20 MEQ ER tablet Take 1 tablet by mouth twice daily 60 tablet 12/10/19 25 025 Discontinued Active Problems Problem Noted Date Diagnosed Date 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 Encounters Date Type Department Care Team Description 01/07/2025 Travel 01/07/2025 Telephone [facility] Hematology/BMT and Cellular Therapy Program [address] [phone] Sabine Clemons MD 01/07/2025 Refill [facility] Hematology/BMT and Cellular Therapy Program [address] [place] [phone] Zonia Hoffman, ELECTRICAL AND INSTRUMENTATION MANAGER 01/05/2025 Travel 01/05/2025 Refill [facility] Hematology/BMT and Cellular Therapy Program [address] [place] [phone] Zonia Hoffman, ELECTRICAL AND INSTRUMENTATION MANAGER 12/29/2024 Orders Only [facility] Hematology/BMT and Cellular Therapy Program [address] [place] [phone] New Mckinney MD Myelodysplastic syndrome (CMS/HCC) (Primary Dx) 12/29/2024 Telephone [facility] Hematology/BMT and Cellular Therapy Program [address] [place] [phone] Bibiana Sepulveda, ELECTRICAL AND INSTRUMENTATION MANAGER 12/28/2024 Travel 12/26/2024 Travel 12/25/2024 Travel 12/24/2024 Travel 12/23/2024 Travel 12/11/2024 Telephone [facility] Hematology/BMT and Cellular Therapy Program [address] [place] [phone] New Mckinney MD 12/10/2024 Travel 12/09/2024 Refill [facility] Hematology/BMT and Cellular Therapy Program [address] [place] [phone] Zonia Hoffman, ELECTRICAL AND INSTRUMENTATION MANAGER 11/27/2024 Telephone [facility] Hematology/BMT and Cellular Therapy Program [address] [place] [phone] Zonia Hoffman, ELECTRICAL AND INSTRUMENTATION MANAGER 11/26/2024 Travel 11/25/2024 Travel 11/24/2024 Travel 11/23/2024 Travel 11/22/2024 Travel 11/13/2024 Orders Only [facility] Hematology/BMT and Cellular Therapy Program [address] [phone] 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, building engineer 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) 11/12/2024 Travel 11/12/2024 Telephone [facility] Hematology/BMT and Cellular Therapy Program [address] [phone] Zonia Hoffman, ELECTRICAL AND INSTRUMENTATION MANAGER 11/11/2024 Travel 11/10/2024 Travel 11/09/2024 Travel 11/08/2024 Travel 11/08/2024 Refill [facility] Hematology/BMT and Cellular Therapy Program [address] [place] [address] New Mckinney MD 11/07/2024 Travel 10/29/2024 Refill [facility] Hematology/BMT and Cellular Therapy Program [address] [place] [address] Zonia Hoffman, ELECTRICAL AND INSTRUMENTATION MANAGER 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); Immunosuppressed status (CMS/HCC) 10/28/2024 Telephone [facility] Hematology/BMT and Cellular Therapy Program [address] [phone] Zonia Hoffman, ELECTRICAL AND INSTRUMENTATION MANAGER 10/27/2024 Telephone [facility] Hematology/BMT and Cellular Therapy Program [address] [phone] Zonia Hoffman, ELECTRICAL AND INSTRUMENTATION MANAGER 10/27/2024 Travel 10/26/2024 Travel 10/24/2024 Travel 10/23/2024 Travel 10/22/2024 Travel 10/15/2024 Refill [facility] Hematology/BMT and Cellular Therapy Program [address] [phone] New Mckinney MD 10/14/2024 Refill [facility] Hematology/BMT and Cellular Therapy Program [address] [place] [phone] New Mckinney MD 10/13/2024 Telephone [facility] Hematology/BMT and Cellular Therapy Program [address] [place] [phone] Zonia Hoffman, ELECTRICAL AND INSTRUMENTATION MANAGER 10/13/2024 Travel 10/12/2024 Travel 10/11/2024 Travel 10/09/2024 Travel 10/08/2024 Travel 10/08/2024 Orders Only [facility] Hematology/BMT and Cellular Therapy Program [address] [place] [phone] 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, building engineer 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) from Last 3 Months [...] Hematology/BMT and Cellular Therapy Program [address] [address] 01/12/2025 10:00 AM EDT Procedure Visit [facility]AV Hematology/BMT and Cellular Therapy Program [address] [phone] Rebecca Barrientos PA 800 [facility] [address] [place] [phone] Health Maintenance Due Date Last Done Comments [facility] Annual Wellness (AWV) 1950 [facility]-Infant/Child/Adol SDOH Screenings 1950 [facility]- SDOH Screenings 1968 [facility]-Adult SDOH Screenings 1968 CT Colonography 11/04/1995 Colonoscopy 11/04/1995 FIT-DNA 11/04/1995 FIT 11/04/1995 FOBT 11/04/1995 Sigmoidoscopy 11/04/1995 [facility]-Colorectal Cancer Screening 11/04/1995 [facility]-Breast Cancer Screening 2000 [facility]-RSV Vaccine: 60+ Years or (1 - Risk 60-74 years 1-dose series) 2010 [facility]-Zoster Vaccines (1 of 2) 05/16/2023 03/21/2023 [facility]-Bone Density Scan 07/25/2024 07/25/2022, 023 [id number] Vaccine (4 - season) 2024 02/18/2021, 07/10/2020, [...] topic Medical Devices Implanted Type Area Senior Software Qa Engineer Device Identifier Shelf Expiration Date Model / Serial / Lot Port Clearvue Power 8fr - [id number] Implanted:Qty: 1 on 01/21/2024 by Ness Sargent MD at [facility] Peripherial Vascular-[id number] / / Procedures Procedure Name Priority Date/Time [...] Antibody Negative Negative 01/07/2024 10:13 AM EDT [facility] Blood Venous blood specimen / Unknown Venipuncture / Unknown 01/07/2024 8:42 AM EDT 01/07/2024 9:25 AM EDT us New Mckinney MD LAB BLOOD ORDERABLES Final Re sult [facility] [address] [place] [address] from Last 3 Months or Most Recently Relevant to Health Maintenance [place] [address] [facility] Care Teams Yarn Bleaching Machine Operator Relationship Specialty Start Date End Date Jevon Vazquez MD [address] [place] [address] #1 #1 [place] [address] PCP - General 03/23/22
[2025-01-08 09:21] LABS: Hematocrit 26.7 % (37.0-47.0); Hemoglobin 9.4 g/dL (12.2-16.2); Immature Granulocytes % 0 %; Mean Corpuscular HGB Conc 35.2 g/dL (31.8-35.4); Mean Corpuscular Hemoglobin 31.9 pg (27.0-31.2); Mean Corpuscular Volume 90.5 fl (81-99); Nucleated Red Blood Cells % 2.4 %; Red Blood Count 2.95 M/mm3 (4.20-5.40); Red Cell Distribution Width-SD 65.5 fL
[2025-01-08 09:30] LABS: White Blood Count 1.7 K/mm3 (4.8-10.8)
[2025-01-08 09:31] LABS: Platelet Count 5 K/mm3 (142-424)
[2025-01-08 09:32] LABS: Alanine Aminotransferase 17 U/L (12-78); Albumin Level 3.6 g/dl (3.5-5.0); Albumin/Globulin Ratio 1.6 (1.1-1.8); Alkaline Phosphatase 43 U/L (38-126); Anion Gap 11.5 mEq/L (5-15); Aspartate Amino Transferase 40 U/L (14-36); Bilirubin,Total 0.7 mg/dl (0.2-1.3); Blood Urea Nitrogen 19 mg/dl (7-17); Calcium 9.5 mg/dl (8.4-10.2); Carbon Dioxide 22 mmol/L (22.0-30.0); Chloride 105 mmol/L (98-107); Creatinine Clearance Estimated 45 mL/min (50-200); Creatinine,Serum 1.00 mg/dl (0.52-1.04); Estimated Glomerular Filt Rate 54 ml/min (>60); GFR (African American) 66 ML/MIN (>60); Globulin 2.2 g/dL (1.3-3.2); Glucose 157 mg/dl (74-100); Potassium 3.5 mmoL/L (3.5-5.1); Sodium 135 mmol/L (136-145); Total Protein,Serum 5.8 g/dl (6.3-8.2)
--- NOTE | 2025-01-08 09:40 | PC.NURSE ---
0940-janet gray, employment counselor here to witness rn collect type and cross from right chest pac.
[2025-01-08 10:34] LABS: RBC Morphology Normal; Total Cells Counted 100
[2025-01-08] MEDS: 0.9 % SODIUM CHLORIDE 250 ML 25 ML IV (13:25)
[2025-01-08] MEDS: SODIUM CHLORIDE 0.9% 10ML FLUSH SYRINGE 10 ML IV (14:45)
== END 2025-01-08 23:59 | disposition home or self-care (01) ==
PROVIDERS: PCP Family Medicine; Visit Provider Internal Medicine Medical Oncology
DX: C92.00 Acute myeloblastic leukemia, not having achieved remission (principal)
CPT/HCPCS: 36430; 36591; 80053; 85007; 85025; 85027; 86900; 86901; J1642; J7050; P9034

== ENCOUNTER 2025-01-15 09:03 | Outpatient (CLI) | payer MEDICARE, BC, SELFPAY ==
[2025-01-15] VITALS (17 sets, daily range): BP systolic 107–136; BP diastolic 44–85; PULSE 67–84; RESP 14–16; TEMP 36.4–36.8; O2SAT 98–100
[2025-01-15 09:23] LABS: Hematocrit 22.9 % (37.0-47.0); Hemoglobin 7.7 g/dL (12.2-16.2); Immature Granulocytes % 0 %; Mean Corpuscular HGB Conc 33.6 g/dL (31.8-35.4); Mean Corpuscular Hemoglobin 31.7 pg (27.0-31.2); Mean Corpuscular Volume 94.2 fl (81-99); Nucleated Red Blood Cells % 4.4 %; Red Blood Count 2.43 M/mm3 (4.20-5.40); Red Cell Distribution Width-SD 70.9 fL
[2025-01-15 09:26] LABS: Platelet Count 8 K/mm3 (142-424); White Blood Count 1.6 K/mm3 (4.8-10.8)
[2025-01-15 09:40] LABS: Alanine Aminotransferase 15 U/L (12-78); Albumin Level 3.6 g/dl (3.5-5.0); Albumin/Globulin Ratio 1.7 (1.1-1.8); Alkaline Phosphatase 58 U/L (38-126); Anion Gap 12.9 mEq/L (5-15); Aspartate Amino Transferase 30 U/L (14-36); Bilirubin,Total 0.8 mg/dl (0.2-1.3); Blood Urea Nitrogen 21 mg/dl (7-17); Calcium 9.3 mg/dl (8.4-10.2); Carbon Dioxide 23 mmol/L (22.0-30.0); Chloride 105 mmol/L (98-107); Creatinine,Serum 1.00 mg/dl (0.52-1.04); Estimated Glomerular Filt Rate 54 ml/min (>60); GFR (African American) 66 ML/MIN (>60); Globulin 2.1 g/dL (1.3-3.2); Glucose 156 mg/dl (74-100); Potassium 3.9 mmoL/L (3.5-5.1); Sodium 137 mmol/L (136-145); Total Protein,Serum 5.7 g/dl (6.3-8.2)
[2025-01-15 10:30] LABS: RBC Morphology Normal; Total Cells Counted 100
[2025-01-15] MEDS: ACETAMINOPHEN 325MG TAB 650 MG PO (13:35)
[2025-01-15] MEDS: 0.9 % SODIUM CHLORIDE 250 ML 25 ML IV (14:00)
[2025-01-15] MEDS: SODIUM CHLORIDE 0.9% 10ML FLUSH SYRINGE 10 ML IV (16:51)
== END 2025-01-15 23:59 | disposition home or self-care (01) ==
LOC: INF 09:04
PROVIDERS: PCP Family Medicine; Visit Provider Internal Medicine Medical Oncology
DX: C92.00 Acute myeloblastic leukemia, not having achieved remission (principal)
CPT/HCPCS: 36430; 80053; 85007; 85025; 85027; 86850; J1642; J7050; P9016; P9034

== ENCOUNTER 2025-01-19 08:58 | Outpatient (CLI) | payer MEDICARE, BC, SELFPAY ==
--- OUTSIDE RECORDS SUMMARY | 2025-01-12 09:30 | XMS_ITS | Encounter Summary ---
Author Organization Healthcare Address [address] [place] [address] Care Team Providers Care Sales Enablement Manager Name Role Phone Jevon Vazquez MD Primary Care Provider [phone] Reason for Visit * Reason Comments Labs Encounter Details Date Type Department Care Team ([facility] Contact Info) Description 01/12/2025 9:30 AM EDT Clinical Support [facility] Hematology/BMT and Cellular Therapy Program [address] [phone] Social History Tobacco Use Types Packs/Day Years [...] Department Care Team ([facility] Contact Info) Description 01/27/2025 3:30 PM EDT Clinical Support [facility] Hematology/BMT and Cellular Therapy Program [address] [phone] 01/27/2025 4:00 PM EDT Office Visit [facility] Hematology/BMT and Cellular Therapy Program [address] [phone] New Mckinney MD 800 [facility] [address] [place] [phone] documented as of this encounter Visit Diagnoses Not on filedocumented in this encounter Additional Health Concerns Assessment Noted Time A fall risk assessment has been complete d for the patient 09/30/2024 9:33 AM EDT A Body Mass Index follow-up plan has been documented for the patient 05/28/2024 1:52 PM EST documented as of this encounter Care Teams Sales Enablement Manager Relationship Specialty Start Date End Date Jevon Vazquez MD [address] [place] [address] #1 #1 [place] [phone] PCP - General 03/23/22 documented as of this encounter
--- OUTSIDE RECORDS SUMMARY | 2025-01-12 10:00 | XMS_ITS | Encounter Summary ---
Author Organization [facility] Address [address] [place] [address] Care Team Providers Care Keymodule Assembly Machine Tender Name Role Phone Jevon Vazquez MD Primary Care Provider [phone] Reason for Visit * Genetic Testing (Routine) - Authorized Specialty Diagnoses / Procedures Referred By Rebecca barron Referred To Contact Lab Diagnoses Myelodysplastic syndrome (CMS/HCC) Procedures Leukemia/Lymphoma - Immunophenotyping by Flow Cytometry New Mckinney MD [address] [facility] [address] [phone] Phone: tel: fax: Referral ID Status Reason Start Date Expiration Date V isits Requested Visits Authorized [id number] Authorized 12/29/2024 06/30/2026 1 1 Encounter Details Date Type Department Care Team (Latest Contact Info) Description 01/12/2025 10:00 AM EDT Procedure Visit [facility] Hematology/BMT and Cellular Therapy Program [address] [phone] Rebecca Barrientos PA [address] [facility] [address] [phone] Myelodysplastic syndrome (CMS/HCC); Acute myeloid [...] position. There were no complications. DANIELA Davis [facility] HEMATOLOGY/BMT AND CELLULAR THERAPY PROGRAM [address] [facility] [phone] / documented in this encounter Plan of Treatment Upcoming Encounters Date Type Department Care Team ([facility] Contact Info) Description 01/27/2025 3:30 PM EDT Clinical Support [facility] Hematology/BMT and Cellular Therapy Program [address] [place] [phone] 01/27/2025 4:00 PM EDT Office Visit [facility] Hematology/BMT and Cellular Therapy Program [address] [phone] New Mckinney MD 800 [facility] [address] [place] [phone] Pending Results Name Type Priority Associated Diagnoses Date /Time Cytogenetics Testing, Oncology Lab Routine Myelodysplastic syndrome (CMS/HCC) 01/12/2025 9:55 AM EDT Chromosome Karyotype, Oncology Lab Routine Myelodysplastic syndrome (CMS/HCC) 01/12/2025 9:55 AM EDT documented as of this encounter Procedures Procedure Name Priority Date/Time Associated Diagnosis Comments BIOPSY BONE MARROW Routine 01/12/2025 10 :00 AM EDT 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) LEUKEMIA/LYMPHOMA - IMMUNOPHENOTYPING BY FLOW CYTOMETRY Routine 01/12/2025 9:55 AM EDT Myelodysplastic syndrome ([facility]) BONE MARROW EXAM Routine 01/12/2025 9:55 AM [...] IN CLINIC/BEDSIDE ORDERABLE S Final Result * Leukemia/Lymphoma - Immunophenotyping by Flow Cytometry (01/12/2025 9:55 AM EDT) Clinical Indication MDS 01/12/2025 4:19 PM EDT [facility] Flow Cytometry Interpretation APPROXIMATELY 27% MYELOID BLASTS EXPRESSING CD34, CD117, VARIABLE CD33, PARTIAL CD56, VARIABLE HLA-DR, PARTIAL DIM CD7, CD38 AND DIM CD45, SEE COMMENT, BBONE MARROW ASPIRATE. 01/12/2025 4:19 PM EDT [facility] Comments Specimen viability is [...] surface light chains 01/12/2025 4:19 PM EDT [facility] Disclaimer This test was [...] clinical laboratory testing. 01/12/2025 4:19 PM EDT [facility] Pathologist Signature Reviewed by: Asad Hartman MD 01/12/2025 4:19 PM EDT [facility] MRD Indicated Test Not Indicated 4:19 PM EDT [facility] Bone Marrow Specimen from bone marrow obtained by aspiration / Unknown Non-blood Collection / Unknown 01/12/2025 9:55 AM EDT 01/12/2025 1:48 PM EDT us New Mckinney MD LAB FLOW CYTOMETRY ORDERABLES Final Result [facility] [address] [place] [address] * Bone marrow exam (01/12/2025 9:55 AM EDT) Case Report Bone Marrow Case: [id number] Authorizing Provider: New Mckinney MD Collected: 01/12/2025 0955 Ordering Location: [facility] Hematology/BMT and Received: 01/12/2025 1143 Cellular Therapy Program Pathologist: Asad Hartman MD Specimens: A) - Bone Marrow Aspirate, left B) - Bone Marrow Biopsy, left C) - Peripheral Blood for Bone Marrow 9:41 AM EDT [facility] Final Diagnosis PERIPHERAL BLOOD AND BONE MARROW, LEFT POSTERIOR ILIAC CREST, (PERIPHERAL SMEAR, ASPIRATE SMEAR, AND CORE BIOPSY): - HYPOCELLULAR BONE MARROW WITH MARKEDLY DECREASED MEGAKARYOCYTES, DECREASED MATURING GRANULOPOIESIS, APPROXIMATELY 7-10% VARIABLY DISTRIBUTED BLASTS AND MORE THAN 50% RING SIDEROBLASTS, SEE COMMENT. 9:41 AM T [facility] at 0941 EDT Comment The discrepancy between blasts percentage by morphologic assessment and flow cytometric analysis is due to erythroid precursors that constitute majority of bone marrow cellularity and are removed by flow cytometry. 9:41 AM T [facility] Clinical Information MDS 9:41 AM T [facility] CBC and Differential PERIPHERAL [...] with few target cells. Platelets are decreased. 9:41 AM EDT [facility] Bone Marrow Differential BONE MARROW DIFFERENTIAL: 300 cells Normal Patient Neutrophils 15-50 12 Metamyelocytes 4-19 0 Myelocytes 1-18 1 Promyelocytes 1-8 0 Blasts 0-2 7 Monocytes 0-5 7 Erythroid 16-38 61 Lymphocytes 3-24 7 Eosinophils 0-6 3 Basophils 0-2 0 Plasma cells 0-4 2 Other 9:41 AM EDT [facility] Aspirate Smear The bone [...] constitute more than 50% of erythroid precursors. 9:41 AM T [facility] Core Biopsy CELLULARITY: Variably cellular bone marrow [...] identified. TRABECULAR BONE: Bony trabeculae are normal. 9:41 AM [facility] Special and Immunohistochemical Stains Immunohistochemica l stains [...] the [facility], [address] [place] [address]. All tests reported here, except those addressing [...] likelihood of false negativity on decalcified specimens. 9:41 AM EDT [facility] Flow Cytometry Interpretation Flow cytometric analysis demonstrates approximately 27% population of myeloid blasts in this patient with history of myelodysplastic syndrome; expressing CD34, CD117, variable CD33, partial CD56, variable HLA-DR, partial dim CD7, CD38 and dim CD45 ([id number]). 9:41 AM EDT [facility] Gross Description B. LEFT A single specimen is received in formalin labeled bone marrow biopsy left posterior iliac crest and consists of 1 piece(s) of red/white tissue measuring 0.9 cm in length 0.2 cm in diameter. The specimen is submitted in to Histology for decalcification and routine processing. Cold Time: <1m 9:41 AM EDT [facility] Note: A resident was involved in the service. I attest I examined the relevant preparations for the specimens and confirmed the diagnosis or interpretation. 9:41 AM EDT [facility] Bone Marrow Peripheral blood [...] MD LAB PATHOLOGY ORDERABLES Tracy stinson Result [facility] [address] [place] [address] * (ABNORMAL) CBC and Differential (01/12/2025 9:15 AM EDT) WBC Count 1.31(L) 3.70 - 10.30 10*3/uL LAB HEMATOLOGY METHOD 01/12/2025 9:58 AM EDT [facility] RBC Count 2.70(L) 3.90 - 5.20 10*6/uL LAB HEMATOLOGY METHOD 01/12/2025 9:58 AM EDT [facility] HGB 8.4(L) 11.2 - 15.7 g/dL LAB HEMATOLOGY METHOD 01/12/2025 9:58 AM EDT [facility] HCT 25.0(L) 34.0 - 45.0 % LAB HEMATOLOGY METHOD 01/12/2025 9:58 AM EDT [facility] Platelet Count 31(L) 155 - 369 10*3/uL LAB HEMATOLOGY METHOD 01/12/2025 9:58 AM EDT [facility] MCV 93 79 - 98 fL LAB HEMATOLOGY METHOD 01/12/2025 9:58 AM EDT [facility] MCH 31.1 26.0 - 32.0 pg LAB HEMATOLOGY METHOD 01/12/2025 9:58 AM EDT [facility] MCHC 33.6 30.7 - 35.5 g/dL LAB HEMATOLOGY METHOD 01/12/2025 9:58 AM EDT [facility] RDW 20.0(H) 11.5 - 14.5 % LAB HEMATOLOGY METHOD 01/12/2025 9:58 AM EDT [facility] MPV 8.8 8.8 - 12.5 fL LAB HEMATOLOGY METHOD 01/12/2025 9:58 AM EDT [facility] nRBC 3.1(H) <=0.0 per 100 WBCs LAB HEMATOLOGY METHOD 01/12/2025 9:58 AM EDT [facility] Differential Type Automated LAB HEMATOLOGY METHOD 01/12/2025 9:58 AM EDT [facility] Neutrophils % 19 % LAB HEMATOLOGY METHOD 01/12/2025 9:58 AM EDT [facility] Lymphocytes % 64 % LAB HEMATOLOGY METHOD 01/12/2025 9:58 AM EDT [facility] Monocytes % 15 % LAB HEMATOLOGY METHOD 01/12/2025 9:58 AM EDT [facility] Eosinophils % 2 % LAB HEMATOLOGY METHOD 01/12/2025 9:58 AM EDT [facility] Basophils % 0 % LAB HEMATOLOGY METHOD 01/12/2025 9:58 AM EDT [facility] Immature Granulocytes % 0 % LAB HEMATOLOGY METHOD 01/12/2025 9:58 AM EDT [facility] Neutrophils Absolute 0.25(LL) 1.60 - 6.10 10*3/uL LAB HEMATOLOGY METHOD 01/12/2025 9:58 AM EDT [facility] Lymphocytes Absolute 0.84(L) 1.20 - 3.90 10*3/uL LAB HEMATOLOGY METHOD 01/12/2025 9:58 AM EDT [facility] Monocytes Absolute 0.20(L) 0.30 - 0.90 10*3/uL LAB HEMATOLOGY METHOD 01/12/2025 9:58 AM EDT [facility] Eosinophils Absolute 0.02 0.00 - 0.50 10*3/uL LAB HEMATOLOGY METHOD 01/12/2025 9:58 AM EDT [facility] Basophils Absolute 0.00 0.00 - 0.10 10*3/uL LAB HEMATOLOGY METHOD 01/12/2025 9:58 AM EDT [facility] Immature Granulocytes Absolute 0.00 0.00 - 0.06 10*3/uL LAB HEMATOLOGY METHOD 01/12/2025 9:58 AM EDT [facility] Blood Blood sample taken from central line / Unknown (Port) Long-term Catheter / Unknown 01/12/2025 9:15 AM EDT 01/12/2025 9:31 AM EDT Narrative [facility] - 01/12/2025 9:58 AM EDT Therapeutic decision making should be based on absolute values, rather than percentages. us New Mckinney MD LAB BLOOD ORDERABLES Final Re sult [facility] [address] [place] [phone] * (ABNORMAL) Comprehensive Metabolic Panel, Plasma (01/12/2025 9:15 AM EDT) Glucose, Plasma 121(H) 74 - 99 mg/dL 01/12/2025 10:02 AM EDT [facility] BUN, Plasma 24(H) 8 - 23 mg/dL 01/12/2025 10:02 AM EDT [facility] Creatinine, Plasma 1.19(H) 0.60 - 1.10 mg/dL 01/12/2025 10:02 AM EDT [facility] BUN/Creatinine Ratio 20 01/12/2025 10:02 AM EDT [facility] Sodium, Plasma 138 136 - 145 mmol/L 01/12/2025 10:02 AM EDT [facility] Potassium, Plasma 3.9 3.6 - 4.9 mmol/L 01/12/2025 10:02 AM EDT [facility] Chloride, Plasma 105 97 - 107 mmol/L 01/12/2025 10:02 AM EDT [facility] CO2, Plasma 21(L) 22 - 29 mmol/L 01/12/2025 10:02 AM EDT [facility] Anion Gap 12 6 - 16 mmol/L 01/12/2025 10:02 AM EDT [facility] Total Calcium, Plasma 9.7 8.9 - 10.2 mg/dL 01/12/2025 10:02 AM EDT [facility] Total Protein 6.1(L) 6.3 - 7.9 g/dL 01/12/2025 10:02 AM EDT [facility] Albumin, Plasma 3.9 3.5 - 5.2 g/dL 01/12/2025 10:02 AM EDT [facility] AST, Plasma 28 10 - 35 U/L 01/12/2025 10:02 AM EDT [facility] ALT, Plasma 12 10 - 35 U/L 01/12/2025 10:02 AM EDT [facility] Alkaline Phosphatase, Plasma 43(L) 46 - 142 U/L 01/12/2025 10:02 AM EDT [facility] Total Bilirubin, Plasma 0.5 0.2 - 1.1 mg/dL 01/12/2025 10:02 AM EDT [facility] eGFRcr 48.1 mL/min/1.7 3m*2 01/12/2025 10:02 AM EDT [facility] Comment:Reported eGFRcr in m L/min/1.73m2 is based the CKD-EPI 2020 equation that does not use a race coefficient. Blood Blood sample taken from central line / Unknown (Port) Long-term Catheter / Unknown 01/12/2025 9:15 AM EDT 01/12/2025 9:33 AM EDT us New Mckinney MD LAB BLOOD ORDERABLES Final Re sult [facility] [address] [place] [address] documented in this encounter Visit Diagnoses Diagnosis [...] documented as of this encounter Care Teams Keymodule Assembly Machine Tender Relationship Specialty Start Date End Date Jevon Vazquez MD [address] [place] [address] #1 #1 [id number] [id number] PCP - General 03/23/22 documented as of this encounter
--- OUTSIDE RECORDS SUMMARY | 2025-01-19 09:08 | XMS_ITS | Encounter Summary ---
Author Organization [facility] Address [address] [place] [address] Care Team Providers Care Sap Fico Architect Name Role Phone Jevon Vazquez MD Primary Care Provider [phone] Reason for Visit * Reason Comments Med Refill Encounter Details Date Type Department Care Team ([facility] Contact Info) Description 01/30/2024 Refill [facility] Hematology/BMT and Cellular Therapy Program [address] [place] [phone] New Mckinney MD 800 [facility] [address] [place] [phone] Social History Tobacco Use Types Packs/Day Years [...] Team ([facility] Contact Info) Description 01/27/2025 3:30 PM EDT Clinical Support [facility] Hematology/BMT and Cellular Therapy Program [address] [place] [address] 01/27/2025 4:00 PM EDT Office Visit [facility] Hematology/BMT and Cellular Therapy Program [address] [phone] New Mckinney MD 800 [facility] [address] [place] [phone] documented as of this encounter Visit Diagnoses Not on filedocumented in this encounter Additional Health Concerns Assessment Noted Time A fall risk assessment has been complete d for the patient 01/11/2024 9:16 AM EDT A Body Mass Index follow-up plan has been documented for the patient 01/21/2024 6:16 AM EDT documented as of this encounter Care Teams Sap Fico Architect Relationship Specialty Start Date End Date Jevon Vazquez MD [address] [place] [address] [address] [place] [address] PCP - General 03/23/22 documented as of this encounter
--- OUTSIDE RECORDS SUMMARY | 2025-01-19 09:08 | XMS_ITS | Encounter Summary ---
Author Organization [facility] Address [address] [place] [address] Care Team Providers Care Management Accounts Manager Name Role Phone Jevon Vazquez MD Primary Care Provider [phone] Reason for Visit * Reason Comments Med Refill Encounter Details Date Type Department Care Team ([facility] Contact Info) Description 12/09/2024 Refill [facility] Hematology/BMT and Cellular Therapy Program [address] [phone] Zonia Hoffman, PECAN HULLER 800 [facility] [address] [place] [phone] Social History Tobacco Use Types Packs/Day Years [...] [facility] Contact Info) Description 01/27/2025 3:30 PM EDT Clinical Support [facility] Hematology/BMT and Cellular Therapy Program [address] [phone] 01/27/2025 4:00 PM EDT Office Visit [facility] Hematology/BMT and Cellular Therapy Program [address] [phone] New Mckinney MD 800 [facility] [address] [place] [phone] documented as of this encounter Visit Diagnoses Not on filedocumented in this encounter Additional Health Concerns Assessment Noted Time A fall risk assessment has been complete d for the patient 09/30/2024 9:33 AM EDT A Body Mass Index follow-up plan has been documented for the patient 05/28/2024 1:52 PM EST documented as of this encounter Care Teams Management Accounts Manager Relationship Specialty Start Date End Date Jevon Vazquez MD [address] [place] [address] [address] [place] [address] PCP - General 03/23/22 documented as of this encounter
--- OUTSIDE RECORDS SUMMARY | 2025-01-19 09:08 | XMS_ITS | Encounter Summary ---
Author Organization [facility] Address [address] [place] [address] Care Team Providers Care Trade Show Coordinator Name Role Phone Jevon Vazquez MD [...] Care Team (Late st Contact Info) Description 01/27/2025 3:30 PM EDT Clinical Support [facility] Hematology/BMT and Cellular Therapy Program [address] [phone] 01/27/2025 4:00 PM EDT Office Visit [facility] Hematology/BMT and Cellular Therapy Program [address] [phone] New Mckinney MD 800 [facility] [address] [place] [phone] documented as of this encounter Visit Diagnoses Not on filedocumented in this encounter Additional Health Concerns Assessment Noted Time A fall risk assessment has been complete d for the patient 09/30/2024 9:33 AM EDT A Body Mass Index follow-up plan has been documented for the patient 05/28/2024 1:52 PM EST documented as of this encounter Care Teams Trade Show Coordinator Relationship Specialty Start Date End Date Jevon Vazquez MD [address] [place] [address] [address] [place] [address] PCP - General 03/23/22 documented as of this encounter
--- OUTSIDE RECORDS SUMMARY | 2025-01-19 09:08 | XMS_ITS | Encounter Summary ---
Author Organization [facility] Address [address] [place] [address] Care Team Providers Care Corn Chip Maker Name Role Phone Jevon Vazquez MD Primary Care Provider [phone] Encounter Details Date Type Department Care Team ([facility] Contact Info) Description 12/11/2024 Telephone [facility] Hematology/BMT and Cellular Therapy Program [address] [phone] New Mckinney MD 800 [facility] [address] [place] [phone] Social History Tobacco Use Types Packs/Day Years [...] PM EDT Rn uploaded recent labs to [place] and rescheduled appointments to 12/30. RN returned call to patient with updated plan of care and schedule. documented in this encounter Plan of Treatment Upcoming Encounters Date Type Department Care Team (Late Contact Info) Description 01/27/2025 3:30 PM EDT Clinical Support [facility] Hematology/BMT and Cellular Therapy Program [address] [place] [address] 01/27/2025 4:00 PM EDT Office Visit [facility] Hematology/BMT and Cellular Therapy Program [address] [phone] New Mckinney MD 800 [facility] [address] [place] [phone] documented as of this encounter Visit Diagnoses Not on filedocumented in this encounter Additional Health Concerns Assessment Noted Time A fall risk assessment has been complete d for the patient 09/30/2024 9:33 AM EDT A Body Mass Index follow-up plan has been documented for the patient 05/28/2024 1:52 PM EST documented as of this encounter Care Teams Corn Chip Maker Relationship Specialty Start Date End Date Jevon Vazquez MD [address] [place] [address] [address] [place] [address] PCP - General 03/23/22 documented as of this encounter
--- OUTSIDE RECORDS SUMMARY | 2025-01-19 09:08 | XMS_ITS ---
Author Organization [facility] Address [address] [place] [address] Care Team Providers Care Admitted Attorneys Name Role Phone Jevon Vazquez MD Primary Care Provider [phone] Active Problems Problem Noted Date Diagnosed Date [...]
--- OUTSIDE RECORDS SUMMARY | 2025-01-19 09:09 | XMS_ITS | Encounter Summary ---
Author Organization [facility] Address [address] [place] [address] Care Team Providers Care Senior Information Security Architect Name Role Phone Jevon Vazquez MD Primary Care Provider [phone] Encounter Details Date Type Department Care Team [...] Hematology/BMT and Cellular Therapy Program [address] [phone] 01/27/2025 4:00 PM EDT Office Visit [facility] Hematology/BMT and Cellular Therapy Program [address] [phone] New Mckinney MD 800 [facility] [address] [place] [phone] documented as of this encounter Visit Diagnoses Not on filedocumented in this encounter Additional Health Concerns Assessment Noted Time A fall risk assessment has been complete d for the patient 09/30/2024 9:33 AM EDT A Body Mass Index follow-up plan has been documented for the patient 05/28/2024 1:52 PM EST documented as of this encounter Care Teams Senior Information Security Architect Relationship Specialty Start Date End Date Jevon Vazquez MD [address] [place] [address] [address] [place] [address] PCP - General 03/23/22 documented as of this encounter
--- OUTSIDE RECORDS SUMMARY | 2025-01-19 09:09 | XMS_ITS | Clinical Summary ---
Author Organization [facility] Address [address] 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 30 tablet 5 01/21/20 24 Active Additional Information Patient not taking.Reported on 01/12/2025 venetoclax (Venclexta) 100 MG tablet Take 2 tablets (200 mg) by mouth 1 (one) time each day. Take on days 1 - 21 (7 days off) of a 28 day cycle. 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) 01/12/2025 9:30 AM EDT Clinical Support [facility] Hematology/BMT and Cellular Therapy Program [address] [place] [phone] 01/12/2025 Travel 01/07/2025 Travel 01/07/2025 Telephone [facility] Hematology/BMT and Cellular Therapy Program [address] [place] [phone] Sabine Clemons MD 01/07/2025 Refill [facility] Hematology/BMT and Cellular Therapy Program [address] [phone] Zonia Hoffman, CYBER OPS PLANNER 01/05/2025 Travel 01/05/2025 Refill [facility] Hematology/BMT and Cellular Therapy Program [address] [phone] Zonia Hoffman, CYBER OPS PLANNER 12/29/2024 Orders Only [facility] Hematology/BMT and Cellular Therapy Program [address] [phone] New Mckinney MD Myelodysplastic syndrome (CMS/HCC) (Primary Dx) 12/29/2024 Telephone [facility] Hematology/BMT and Cellular Therapy Program [address] [phone] Bibiana Sepulveda, CYBER OPS PLANNER 12/28/2024 Travel 12/26/2024 Travel 12/25/2024 Travel 12/24/2024 Travel 12/23/2024 Travel 12/11/2024 Telephone [facility] Hematology/BMT and Cellular Therapy Program [address] [phone] New Mckinney MD 12/10/2024 Travel 12/09/2024 Refill [facility] Hematology/BMT and Cellular Therapy Program [address] [phone] Zonia Hoffman, CYBER OPS PLANNER 11/27/2024 Telephone [facility] Hematology/BMT and Cellular Therapy Program [address] [phone] Zonia Hoffman, CYBER OPS PLANNER 11/26/2024 Travel 11/25/2024 Travel 11/24/2024 Travel 11/23/2024 Travel 11/22/2024 Travel 11/13/2024 Orders Only [facility] Hematology/BMT and Cellular Therapy Program [address] [phone] 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, set up technician 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) 11/12/2024 Travel 11/12/2024 Telephone [facility] Hematology/BMT and Cellular Therapy Program [address] [place] [phone] Zonia Hoffman, CYBER OPS PLANNER 11/11/2024 Travel 11/10/2024 Travel 11/09/2024 Travel 11/08/2024 Travel 11/08/2024 Refill [facility] Hematology/BMT and Cellular Therapy Program [address] [place] [phone] New Mckinney MD 11/07/2024 Travel 10/29/2024 Refill [facility] Hematology/BMT and Cellular Therapy Program [address] [place] [phone] Zonia Hoffman, CYBER OPS PLANNER 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); Immunosuppressed status (CMS/HCC) 10/28/2024 Telephone [facility] Hematology/BMT and Cellular Therapy Program [address] [place] [phone] Zonia Hoffman, CYBER OPS PLANNER 10/27/2024 Telephone [facility] Hematology/BMT and Cellular Therapy Program [address] [place] [phone] Zonia Hoffman, CYBER OPS PLANNER 10/27/2024 Travel 10/26/2024 Travel 10/24/2024 Travel 10/23/2024 Travel 10/22/2024 Travel from Last 3 Months Immunizations Immunization [...] F) 01/12/2025 9:49 AM EDT Respiratory Rate 16 09/30/2024 9:30 AM EDT Oxygen Saturation 94% 01/12/2025 9:49 AM EDT Inhaled Oxygen Concentration - - Weight 55.4 kg (122 lb 2.2 oz) 01/12/2025 9:49 A M EDT Height 162.6 cm (5' 4.02 ) 01/12/2025 9:49 AM ED T Body Mass Index 20.95 01/12/2025 9:49 AM EDT Plan of Treatment Upcoming Encounters Date Type Department Care Team ([facility] st Contact Info) Description 01/27/2025 3:30 PM EDT Clinical Support [facility] Hematology/BMT and Cellular Therapy Program [address] [phone] 01/27/2025 4:00 PM EDT Office Visit [facility] Hematology/BMT and Cellular Therapy Program [address] [phone] New Mckinney MD 800 [facility] [address] [place] [phone] Health Maintenance Due Date Last Done Comments [...] 2) 05/16/2023 03/21/2023 UKY-Bone Density Scan 07/25/2024 07/25/2022 [id number] Vaccine (4 - season) 2024 02/18/2021, 07/10/2020, [...] this topic Medical Devices Implanted Type Area Watershed Coordinator Device Identifier Shelf Expiration Date Model / Serial / Lot Port Clearvue Power 8fr - [id number] Implanted:Qty: 1 on 01/21/2024 [id number] / / Procedures Procedure Name Priority Date/Time Associated Diagnosis Comments BIOPSY BONE MARROW Routine 01/12/2025 10 :00 AM EDT 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) BONE MARROW EXAM Routine 01/12/2025 9:55 [...] Health Maintenance Results * BIOPSY BONE MARROW (01/12/2025 10:00 AM EDT) Narrative Rebecca Barrientos PA - 01/12/2025 10:00 AM EDT Rebecca Barrientos PA 01/12/2025 12:20 PM Biopsy bone marrow Performed by: Rebecca Barrientos PA Authorized by: Rebecca Barrientos PA Rebecca SUAREZ IN CLINIC/BEDSIDE ORDERABLE S Final Result * Leukemia/Lymphoma - Immunophenotyping by Flow Cytometry (01/12/2025 9:55 AM EDT) Clinical Indication MDS 01/12/2025 4:19 PM EDT [facility] Flow Cytometry Interpretation APPROXIMATELY 27% MYELOID BLASTS EXPRESSING CD34, CD117, VARIABLE CD33, PARTIAL CD56, VARIABLE HLA-DR, PARTIAL DIM CD7, CD38 AND DIM CD45, SEE COMMENT, BBONE MARROW ASPIRATE. 01/12/2025 4:19 PM EDT [facility] Comments Specimen viability is [...] surface light chains 01/12/2025 4:19 PM EDT [facility] Disclaimer This test was developed and its performance characteristics determined by the Immuno-Molecular Pathology Laboratory at the [facility]. It has not been cleared [...] clinical laboratory testing. 01/12/2025 4:19 PM EDT [facility] Pathologist Signature Reviewed by: Asad Hartman MD 01/12/2025 4:19 PM EDT [facility] MRD Indicated Test Not Indicated 4:19 PM EDT [facility] Bone Marrow Specimen from bone marrow obtained by aspiration / Unknown Non-blood Collection / Unknown 01/12/2025 9:55 AM EDT 01/12/2025 1:48 PM EDT us New Mckinney MD LAB FLOW CYTOMETRY ORDERABLES Final Result [facility] [address] [place] [address] * Bone marrow exam (01/12/2025 9:55 AM EDT) Case Report Bone Marrow Case: [id number] Authorizing Provider: New Mckinney MD Collected: 01/12/2025 0955 Ordering Location: [facility] Hematology/BMT and Received: 01/12/2025 1143 Cellular Therapy Program Pathologist: Asad Hartman MD Specimens: A) - Bone Marrow Aspirate, left B) - Bone Marrow Biopsy, left C) - Peripheral Blood for Bone Marrow 9:41 AM EDT [facility] Final Diagnosis PERIPHERAL BLOOD AND BONE MARROW, LEFT POSTERIOR ILIAC CREST, (PERIPHERAL SMEAR, ASPIRATE SMEAR, AND CORE BIOPSY): - HYPOCELLULAR BONE MARROW WITH MARKEDLY DECREASED MEGAKARYOCYTES, DECREASED MATURING GRANULOPOIESIS, APPROXIMATELY 7-10% VARIABLY DISTRIBUTED BLASTS AND MORE THAN 50% RING SIDEROBLASTS, SEE COMMENT. 9:41 AM T [facility] at 0941 EDT Comment The discrepancy between blasts percentage by morphologic assessment and flow cytometric analysis is due to erythroid precursors that constitute majority of bone marrow cellularity and are removed by flow cytometry. 9:41 AM EDT [facility] Clinical Information MDS 9:41 AM T [facility] CBC and Differential [...] target cells. Platelets are decreased. 9:41 AM T [facility] Bone Marrow Differential BONE MARROW DIFFERENTIAL: 300 cells Normal Patient Neutrophils 15-50 12 Metamyelocytes 4-19 0 Myelocytes 1-18 1 Promyelocytes 1-8 0 Blasts 0-2 7 Monocytes 0-5 7 Erythroid 16-38 61 Lymphocytes 3-24 7 Eosinophils 0-6 3 Basophils 0-2 0 Plasma cells 0-4 2 Other 9:41 AM T [facility] Aspirate Smear The bone [...] 50% of erythroid precursors. 9:41 AM T [facility] Core Biopsy CELLULARITY: Variably [...] BONE: Bony trabeculae are normal. 9:41 AM T [facility] Special and Immunohistochemical Stains [...] the [facility], [address] [place] [address]. All tests reported here, except those addressing [...] negativity on decalcified specimens. 9:41 AM EDT [facility] Flow Cytometry Interpretation Flow cytometric analysis demonstrates approximately 27% population of myeloid blasts in this patient with history of myelodysplastic syndrome; expressing CD34, CD117, variable CD33, partial CD56, variable HLA-DR, partial dim CD7, CD38 and dim CD45 ([id number]). 9:41 AM EDT [facility] Gross Description B. LEFT A single specimen is received in formalin labeled bone marrow biopsy left posterior iliac crest and consists of 1 piece(s) of red/white tissue measuring 0.9 cm in length 0.2 cm in diameter. The specimen is submitted in to Histology for decalcification and routine processing. Cold Time: <1m 9:41 AM EDT [facility] Note: A resident was involved in the service. I attest I examined the relevant preparations for the specimens and confirmed the diagnosis or interpretation. 9:41 AM EDT [facility] Bone [...] MD LAB PATHOLOGY ORDERABLES Tracy stinson Result [facility] [address] [place] [address] * (ABNORMAL) CBC and Differential (01/12/2025 9:15 AM EDT) WBC Count 1.31(L) 3.70 - 10.30 10*3/uL LAB HEMATOLOGY METHOD 01/12/2025 9:58 AM EDT [facility] RBC Count 2.70(L) 3.90 - 5.20 10*6/uL LAB HEMATOLOGY METHOD 01/12/2025 9:58 AM EDT [facility] HGB 8.4(L) 11.2 - 15.7 g/dL LAB HEMATOLOGY METHOD 01/12/2025 9:58 AM EDT [facility] HCT 25.0(L) 34.0 - 45.0 % LAB HEMATOLOGY METHOD 01/12/2025 9:58 AM EDT [facility] Platelet Count 31(L) 155 - 369 10*3/uL LAB HEMATOLOGY METHOD 01/12/2025 9:58 AM EDT [facility] MCV 93 79 - 98 fL LAB HEMATOLOGY METHOD 01/12/2025 9:58 AM EDT [facility] MCH 31.1 26.0 - 32.0 pg LAB HEMATOLOGY METHOD 01/12/2025 9:58 AM EDT [facility] MCHC 33.6 30.7 - 35.5 g/dL LAB HEMATOLOGY METHOD 01/12/2025 9:58 AM EDT [facility] RDW 20.0(H) 11.5 - 14.5 % LAB HEMATOLOGY METHOD 01/12/2025 9:58 AM EDT [facility] MPV 8.8 8.8 - 12.5 fL LAB HEMATOLOGY METHOD 01/12/2025 9:58 AM EDT [facility] nRBC 3.1(H) <=0.0 per 100 WBCs LAB HEMATOLOGY METHOD 01/12/2025 9:58 AM EDT [facility] Differential Type Automated LAB HEMATOLOGY METHOD 01/12/2025 9:58 AM EDT [facility] Neutrophils % 19 % LAB HEMATOLOGY METHOD 01/12/2025 9:58 AM EDT [facility] Lymphocytes % 64 % LAB HEMATOLOGY METHOD 01/12/2025 9:58 AM EDT [facility] Monocytes % 15 % LAB HEMATOLOGY METHOD 01/12/2025 9:58 AM EDT [facility] Eosinophils % 2 % LAB HEMATOLOGY METHOD 01/12/2025 9:58 AM EDT [facility] Basophils % 0 % LAB HEMATOLOGY METHOD 01/12/2025 9:58 AM EDT [facility] Immature Granulocytes % 0 % LAB HEMATOLOGY METHOD 01/12/2025 9:58 AM EDT [facility] Neutrophils Absolute 0.25(LL) 1.60 - 6.10 10*3/uL LAB HEMATOLOGY METHOD 01/12/2025 9:58 AM EDT [facility] Lymphocytes Absolute 0.84(L) 1.20 - 3.90 10*3/uL LAB HEMATOLOGY METHOD 01/12/2025 9:58 AM EDT [facility] Monocytes Absolute 0.20(L) 0.30 - 0.90 10*3/uL LAB HEMATOLOGY METHOD 01/12/2025 9:58 AM EDT [facility] Eosinophils Absolute 0.02 0.00 - 0.50 10*3/uL LAB HEMATOLOGY METHOD 01/12/2025 9:58 AM EDT [facility] Basophils Absolute 0.00 0.00 - 0.10 10*3/uL LAB HEMATOLOGY METHOD 01/12/2025 9:58 AM EDT [facility] Immature Granulocytes Absolute 0.00 0.00 - 0.06 10*3/uL LAB HEMATOLOGY METHOD 01/12/2025 9:58 AM EDT [facility] Blood Blood sample taken from central line / Unknown (Port) Long-term Catheter / Unknown 01/12/2025 9:15 AM EDT 01/12/2025 9:31 AM EDT Narrative [facility] - 01/12/2025 9:58 AM EDT Therapeutic decision making should be based on absolute values, rather than percentages. us New Mckinney MD LAB BLOOD ORDERABLES Final Re sult [facility] [address] [place] [address] * (ABNORMAL) Comprehensive Metabolic Panel, Plasma (01/12/2025 9:15 AM EDT) Glucose, Plasma 121(H) 74 - 99 mg/dL 01/12/2025 10:02 AM EDT [facility] BUN, Plasma 24(H) 8 - 23 mg/dL 01/12/2025 10:02 AM EDT [facility] Creatinine, Plasma 1.19(H) 0.60 - 1.10 mg/dL 01/12/2025 10:02 AM EDT [facility] BUN/Creatinine Ratio 20 01/12/2025 10:02 AM EDT [facility] Sodium, Plasma 138 136 - 145 mmol/L 01/12/2025 10:02 AM EDT [facility] Potassium, Plasma 3.9 3.6 - 4.9 mmol/L 01/12/2025 10:02 AM EDT [facility] Chloride, Plasma 105 97 - 107 mmol/L 01/12/2025 10:02 AM EDT [facility] CO2, Plasma 21(L) 22 - 29 mmol/L 01/12/2025 10:02 AM EDT [facility] Anion Gap 12 6 - 16 mmol/L 01/12/2025 10:02 AM EDT [facility] Total Calcium, Plasma 9.7 8.9 - 10.2 mg/dL 01/12/2025 10:02 AM T [facility] Total Protein 6.1(L) 6.3 - 7.9 g/dL 01/12/2025 10:02 AM EDT [facility] Albumin, Plasma 3.9 3.5 - 5.2 g/dL 01/12/2025 10:02 AM EDT [facility] AST, Plasma 28 10 - 35 U/L 01/12/2025 10:02 AM EDT [facility] ALT, Plasma 12 10 - 35 U/L 01/12/2025 10:02 AM T [facility] Alkaline Phosphatase, Plasma 43(L) 46 - 142 U/L 01/12/2025 10:02 AM EDT [facility] Total Bilirubin, Plasma 0.5 0.2 - 1.1 mg/dL 01/12/2025 10:02 AM EDT [facility] eGFRcr 48.1 mL/min/1.7 3m*2 01/12/2025 10:02 AM EDT [facility] Comment:Reported eGFRcr in m L/min/1.73m2 is based the CKD-EPI 2020 equation that does not use a race coefficient. Blood Blood sample taken from central line / Unknown (Port) Long-term Catheter / Unknown 01/12/2025 9:15 AM EDT 01/12/2025 9:33 AM EDT New Mckinney MD LAB BLOOD ORDERABLES Final Re sult [facility] [address] [place] [address] * Hepatitis C Antibody w/Reflex to HCV Quant PCR (01/07/2024 8:42 AM EDT) Hepatitis C Antibody Negative Negative 01/07/2024 10:13 AM EDT [facility] Blood Venous blood specimen / Unknown Venipuncture / Unknown 01/07/2024 8:42 AM EDT 01/07/2024 9:25 AM EDT New Mckinney MD LAB BLOOD ORDERABLES Final Re sult Performing Organization Address City/[facility]/ZIP Co de Phone Number [facility] [address] [place] [address] from Last 3 Months or Most Recently Relevant to Health Maintenance Insurance MEDICARE [facility] Care Teams Blow Off Worker Relationship Specialty Start Date End Date Jevon Vazquez MD [address] [place] [address] #1 #1 [place]P [place] [id number] PCP - General 03/23/22
--- OUTSIDE RECORDS SUMMARY | 2025-01-19 09:09 | XMS_ITS | Clinical Summary ---
Author Organization [facility] Address [address] [place] [address] Care Team Providers Care Laundry Technician Name Role Phone David Vazquez Primary Care Provider [phone] Allergies No known active allergies Medications atorvastatin [...] series) 2025 Medical Devices Implanted Type Area Resident Associate Device Identifier Shelf Expiration Date Model / Serial / Lot Mis Ply Scr 6.5x50mm - [id number] Implanted:Qty : 1 on 01/30/2023 by Ivan Bartholomew MD at [facility] Screw N/A: Spine Lumbar [employer] [id number] / / Mis Ply Scr 6.5x45mm - [id number] Implanted:Qty : 3 on 01/30/2023 by Ivan Bartholomew MD at [facility] Screw N/A: Spine Lumbar [employer] [id number] / / Reline Mas Reduction Screw 7.5x45 - [id number] Implanted:Qty : 2 on 01/30/2023 by Ivan Bartholomew MD at [facility] Screw N/A: Spine Lumbar [employer] [id number] / / Grft Dbm Vesuvius Putty 5cc - [id number] Implanted:Qty : 1 on 01/30/2023 by Ivan Bartholomew MD at [facility] [employer] [id number] 04/20/2025 [id number] P / [id number] 1 / Putty I-Factor 5.0cc - [id number] Implanted:Qty : 1 on 01/30/2023 by Ivan Bartholomew MD at [facility] N/A: Spine Lumbar [employer] 03/15/2025 [id number] / / [id number] Modulus Xlw [id number] 10 Degree - [id number] Implanted:Qty : 1 on 01/30/2023 by Ivan Bartholomew MD at [facility] N/A: Spine Lumbar [employer] [id number] / / [id number] Modulus Xlw [id number] - [id number] Implanted:Qty : 1 on 01/30/2023 by Ivan Bartholomew MD at [facility] N/A: Spine Lumbar [employer] 09/28/2027 [id number] / / [id number] Reln Lock Scr 5.5mm Opn Tulip - [id number] Implanted:Qty : 6 on 01/30/2023 by Ivan Bartholomew MD at [facility] N/A: Spine Lumbar [employer] [id number] / / Reln Mas Ti Petar 5.5x70mm - [id number] Implanted:Qty : 2 on 01/30/2023 by Ivan Bartholomew MD at [facility] N/A: Spine Lumbar [employer] [id number] / / Procedures Procedure Name Priority Date/Time [...] [facility] [address] * (ABNORMAL) BASIC METABOLIC PANEL (BMP=EP1) [...] [facility] [address] from Last 3 Months or Most Recently Relevant to Health Maintenance Insurance MEDICARE PART A [facility] [address] [address] [place] [address] ANTH Advance Directives For more information, please contact: [phone] * Full Code (Latest Code Status on File) Date Activated Date Inactivated Comments 01/30/2023 9:13 AM No automated chest compression devices for VAD Patients Care Teams Laundry Technician Relationship Specialty Start Date End Date David Vazquez [address] [place] [id number] PCP - General 01/24/23
--- OUTSIDE RECORDS SUMMARY | 2025-01-19 09:09 | XMS_ITS | Encounter Summary ---
Author Organization Healthcare Address [address] [place] [address] Care Team Providers Care Purchasing Buyer Name Role Phone Jevon Vazquez MD Primary Care Provider [phone] Encounter Details Date Type Department Care Team [...] Hematology/BMT and Cellular Therapy Program [address] [phone] 01/27/2025 4:00 PM EDT Office Visit [facility] Hematology/BMT and Cellular Therapy Program [address] [phone] New Mckinney MD 800 [facility] [address] [place] [phone] documented as of this encounter Visit Diagnoses [...] Date End Date Jevon Vazquez MD [address] [place] [address] #1 #1 [place] [phone] PCP - General 03/23/22 documented as of this encounter
--- OUTSIDE RECORDS SUMMARY | 2025-01-19 09:09 | XMS_ITS | Encounter Summary ---
Author Organization Healthcare Address [address] [place] [address] Care Team Providers Care Hopper Attendant Name Role Phone Jevon Vazquez MD Primary Care Provider [phone] Encounter Details Date Type Department Care Team [...] Hematology/BMT and Cellular Therapy Program [address] [phone] 01/27/2025 4:00 PM EDT Office Visit [facility] Hematology/BMT and Cellular Therapy Program [address] [phone] New Mckinney MD 800 [facility] [address] [place] [phone] documented as of this encounter Visit Diagnoses Not on filedocumented in this encounter Additional Health Concerns Assessment Noted Time A fall risk assessment has been complete d for the patient 09/30/2024 9:33 AM EDT A Body Mass Index follow-up plan has been documented for the patient 05/28/2024 1:52 PM EST documented as of this encounter Care Teams Hopper Attendant Relationship Specialty Start Date End Date Jevon Vazquez MD [address] [place] [address] #1 #1 [place] [phone] PCP - General 03/23/22 documented as of this encounter
--- OUTSIDE RECORDS SUMMARY | 2025-01-19 09:09 | XMS_ITS | Encounter Summary ---
Author Organization Healthcare Address [address] [place] [address] Care Team Providers Care Order Analyst Name Role Phone Jevon Vazquez MD Primary Care Provider [phone] Encounter Details Date Type Department Care Team (Latest Contact Info) Description 01/12/2025 Travel Social History Tobacco Use Types Packs/Day [...] Hematology/BMT and Cellular Therapy Program [address] [phone] 01/27/2025 4:00 PM EDT Office Visit [facility] Hematology/BMT and Cellular Therapy Program [address] [phone] New Mckinney MD 800 [facility] [address] [place] [phone] documented as of this encounter Visit Diagnoses Not on filedocumented in this encounter Additional Health Concerns Assessment Noted Time A fall risk assessment has been complete d for the patient 09/30/2024 9:33 AM EDT A Body Mass Index follow-up plan has been documented for the patient 05/28/2024 1:52 PM EST documented as of this encounter Care Teams Order Analyst Relationship Specialty Start Date End Date Jevon Vazquez MD [address] [place] [address] #1 #1 [place] [phone] PCP - General 03/23/22 documented as of this encounter
--- OUTSIDE RECORDS SUMMARY | 2025-01-19 09:09 | XMS_ITS | Encounter Summary ---
Author Organization [facility] Address [address] [place] [address] Care Team Providers Care Director Of Video Analytics Name Role Phone Jevon Vazquez MD Primary Care Provider [phone] Encounter Details Date Type Department Care Team ([facility] Contact Info) Description 01/07/2025 Telephone [facility] Hematology/BMT and Cellular Therapy Program [address] [phone] Sabine Clemons MD 800 [facility] [address] [place] [phone] Social History Tobacco Use Types Packs/Day Years [...] Upcoming Encounters Date Type Department Care Team ([facility] Contact Info) Description 01/27/2025 3:30 PM EDT Clinical Support [facility] Hematology/BMT and Cellular Therapy Program [address] [phone] 01/27/2025 4:00 PM EDT Office Visit [facility] Hematology/BMT and Cellular Therapy Program [address] [phone] New Mckinney MD 800 [facility] [address] [place] [address] documented as of this encounter Visit Diagnoses Not on filedocumented in this encounter Additional Health Concerns Assessment Noted Time A fall risk assessment has been complete d for the patient 09/30/2024 9:33 AM EDT A Body Mass Index follow-up plan has been documented for the patient 05/28/2024 1:52 PM EST documented as of this encounter Care Teams Director Of Video Analytics Relationship Specialty Start Date End Date eJvon Vazquez MD [address] [place] [address] [address]1 [address] [place] [address] PCP - General 03/23/22 documented as of this encounter
--- OUTSIDE RECORDS SUMMARY | 2025-01-19 09:09 | XMS_ITS | Encounter Summary ---
Author Organization Healthcare Address [address] [place] [address] Care Team Providers Care Community Health Education Coordinator Name Role Phone Jevon Vazquez MD Primary Care Provider [phone] Encounter Details Date Type Department Care Team [...] Hematology/BMT and Cellular Therapy Program [address] [phone] 01/27/2025 4:00 PM EDT Office Visit [facility] Hematology/BMT and Cellular Therapy Program [address] [phone] New Mckinney MD 800 [facility] [address] [place] [phone] documented as of this encounter Visit Diagnoses Not on filedocumented in this encounter Additional Health Concerns Assessment Noted Time A fall risk assessment has been complete d for the patient 09/30/2024 9:33 AM EDT A Body Mass Index follow-up plan has been documented for the patient 05/28/2024 1:52 PM EST documented as of this encounter Care Teams Community Health Education Coordinator Relationship Specialty Start Date End Date Jevon Vazquez MD [address] [place] [address] [address]1 [address] [place] [address] PCP - General 03/23/22 documented as of this encounter
--- OUTSIDE RECORDS SUMMARY | 2025-01-19 09:09 | XMS_ITS | Encounter Summary ---
Author Organization Healthcare Address [address] [place] [address] Care Team Providers Care Movement Assembler Name Role Phone Jevon Vazquez MD Primary Care Provider [phone] Encounter Details Date Type Department Care Team [...] Hematology/BMT and Cellular Therapy Program [address] [phone] 01/27/2025 4:00 PM EDT Office Visit [facility] Hematology/BMT and Cellular Therapy Program [address] [phone] New Mckinney MD 800 [facility] [address] [place] [phone] documented as of this encounter Visit Diagnoses Not on filedocumented in this encounter Additional Health Concerns Assessment Noted Time A fall risk assessment has been complete d for the patient 09/30/2024 9:33 AM EDT A Body Mass Index follow-up plan has been documented for the patient 05/28/2024 1:52 PM EST documented as of this encounter Care Teams Movement Assembler Relationship Specialty Start Date End Date Jevon Vazquez MD [address] [place] [address] #1 [address]1 [place] [address] PCP - General 03/23/22 documented as of this encounter
--- OUTSIDE RECORDS SUMMARY | 2025-01-19 09:09 | XMS_ITS | Encounter Summary ---
Author Organization Healthcare Address [address] [place] [address] Care Team Providers Care Corn Husk Baler Name Role Phone Jevon Vazquez MD Primary Care Provider [phone] Encounter Details Date Type Department Care Team [...] Hematology/BMT and Cellular Therapy Program [address] [phone] 01/27/2025 4:00 PM EDT Office Visit [facility] Hematology/BMT and Cellular Therapy Program [address] [phone] New Mckinney MD [address] [facility] [address] [place] [phone] documented as of this encounter Visit Diagnoses Not on filedocumented in this encounter Additional Health Concerns Assessment Noted Time A fall risk assessment has been complete d for the patient 09/30/2024 9:33 AM EDT A Body Mass Index follow-up plan has been documented for the patient 05/28/2024 1:52 PM EST documented as of this encounter Care Teams Corn Husk Baler Relationship Specialty Start Date End Date Jevon Vazquez MD [address] [place] [address] #1 [address]1 [place] [address] PCP - General 03/23/22 documented as of this encounter
--- OUTSIDE RECORDS SUMMARY | 2025-01-19 09:09 | XMS_ITS | Encounter Summary ---
Author Organization Healthcare Address [address] [place] [address] Care Team Providers Care Jukebox Routeman Name Role Phone Jevon Vazqeuz MD Primary Care Provider [phone] Encounter Details Date Type Department Care Team [...] Hematology/BMT and Cellular Therapy Program [address] [phone] 01/27/2025 4:00 PM EDT Office Visit [facility] Hematology/BMT and Cellular Therapy Program [address] [phone] New Mckinney MD 800 [facility] [address] [place] [phone] documented as of this encounter Visit Diagnoses Not on filedocumented in this encounter Additional Health Concerns Assessment Noted Time A fall risk assessment has been complete d for the patient 09/30/2024 9:33 AM EDT A Body Mass Index follow-up plan has been documented for the patient 05/28/2024 1:52 PM EST documented as of this encounter Care Teams Jukebox Routeman Relationship Specialty Start Date End Date Jevon Vazquez MD [address] [place] [address] [address]1 [address]1 [place] [address] PCP - General 03/23/22 documented as of this encounter
--- OUTSIDE RECORDS SUMMARY | 2025-01-19 09:09 | XMS_ITS | Encounter Summary ---
Author Organization Healthcare Address [address] [place] [address] Care Team Providers Care Installer Metal Flooring Name Role Phone Jevon Vazquez MD Primary Care Provider [phone] Encounter Details Date Type Department Care Team (Late Contact Info) Description 11/27/2024 Telephone [facility] Hematology/BMT and Cellular Therapy Program [address] [phone] Zonia Hoffman, BIOLOGIST AIDE 800 [facility] [address] [place] [phone] Social History Tobacco Use Types Packs/Day Years [...] Hematology/BMT and Cellular Therapy Program [address] [place] [address] 01/27/2025 4:00 PM EDT Office Visit PAV Hematology/BMT and Cellular Therapy Program [address] [place] [address] New Mckinney MD 800 [facility] [address] [place] [phone] documented as of this encounter Visit Diagnoses Not on filedocumented in this encounter Additional Health Concerns Assessment Noted Time A fall risk assessment has been complete d for the patient 09/30/2024 9:33 AM EDT A Body Mass Index follow-up plan has been documented for the patient 05/28/2024 1:52 PM EST documented as of this encounter Care Teams Installer Metal Flooring Relationship Specialty Start Date End Date Jevon Vazquez MD [address] [place] [address] [address]1 [address]1 [place] [address] PCP - General 03/23/22 documented as of this encounter
--- OUTSIDE RECORDS SUMMARY | 2025-01-19 09:09 | XMS_ITS | Encounter Summary ---
Author Organization [facility] Address [address] [place] [address] Care Team Providers Care Copy Operator Name Role Phone Jevon Vazquez MD Primary Care Provider [phone] Reason for Visit * Reason Comments Med Refill Encounter Details Date Type Department Care Team ([facility] Contact Info) Description 01/05/2025 Refill [facility] Hematology/BMT and Cellular Therapy Program [address] [phone] Zonia Hoffman, ASSISTANT READING TEACHER 800 [facility] [address] [place] [phone] Social History Tobacco Use Types Packs/Day Years [...] [facility] Contact Info) Description 01/27/2025 3:30 PM EDT Clinical Support [facility] Hematology/BMT and Cellular Therapy Program [address] [phone] 01/27/2025 4:00 PM EDT Office Visit [facility] Hematology/BMT and Cellular Therapy Program [address] [phone] New Mckinney MD 800 [facility] [address] [place] [phone] documented as of this encounter Visit Diagnoses Not on filedocumented in this encounter Additional Health Concerns Assessment Noted Time A fall risk assessment has been complete d for the patient 09/30/2024 9:33 AM EDT A Body Mass Index follow-up plan has been documented for the patient 05/28/2024 1:52 PM EST documented as of this encounter Care Teams Copy Operator Relationship Specialty Start Date End Date Jevon Vazquez MD [address] [place] [address] [address]1 [address]1 [place] [address] PCP - General 03/23/22 documented as of this encounter
--- OUTSIDE RECORDS SUMMARY | 2025-01-19 09:09 | XMS_ITS | Encounter Summary ---
Author Organization [facility] Address [address] [place] [address] Care Team Providers Care Land Acquisition Specialist Name Role Phone Jevon Vazquez MD Primary Care Provider [phone] Reason for Visit * Reason Comments Med Refill Encounter Details Date Type Department Care Team ([facility] Contact Info) Description 01/07/2025 Refill [facility] Hematology/BMT and Cellular Therapy Program [address] [phone] Zonia Hoffman, CLASS C DRIVER 800 [facility] [address] [place] [phone] Social History Tobacco Use Types Packs/Day Years [...] ([facility] Contact Info) Description 01/27/2025 3:30 PM EDT Clinical Support [facility] Hematology/BMT and Cellular Therapy Program [address] [phone] 01/27/2025 4:00 PM EDT Office Visit [facility] Hematology/BMT and Cellular Therapy Program [address] [phone] New Mckinney MD 800 [facility] [address] [place] [phone] documented as of this encounter Visit Diagnoses Not on filedocumented in this encounter Additional Health Concerns Assessment Noted Time A fall risk assessment has been complete d for the patient 09/30/2024 9:33 AM EDT A Body Mass Index follow-up plan has been documented for the patient 05/28/2024 1:52 PM EST documented as of this encounter Care Teams Land Acquisition Specialist Relationship Specialty Start Date End Date Jevon Vazquez MD [address] [place] [address] [address]1 [address]1 [place] [address] PCP - General 03/23/22 documented as of this encounter
--- OUTSIDE RECORDS SUMMARY | 2025-01-19 09:09 | XMS_ITS | Encounter Summary ---
Author Organization Healthcare Address [address] [place] [address] Care Team Providers Care Tire Mounter Name Role Phone Jevon Vazquez MD Primary Care Provider [phone] Encounter Details Date Type Department Care Team (Late Contact Info) Description 01/16/2025 Telephone [facility] Hematology/BMT and Cellular Therapy Program [address] [place] [address] [place] [address] Daxa Elliott RN [facility] [...] encounter Miscellaneous Notes * Progress Notes - Daxa Elliott RN - 01/16/2025 2:37 PM EDT Received [facility] labs and Plt were 8K. I called to confirm that she received plt. She received Plt and PRBCs yesterday. PRBCs Hgb parameter here in her chart is </= 7.0 for transfusion. Will follow upwith the treatment team to be certain they know [facility] facility is transfusion above our parameters onrecord. documented in this encounter Plan of Treatment Upcoming Encounters Date Type Department Care Team (Late st Contact Info) Description 01/27/2025 3:30 PM EDT Clinical Support [facility] Hematology/BMT and Cellular Therapy Program 750 [facility] [place] [address] 01/27/2025 4:00 PM EDT Office Visit [facility] CC Hematology/BMT and Cellular Therapy Program 750 [facility] [place] [address] New Mckinney MD 800 [facility] [address] [place] [phone] documented as of this encounter Visit Diagnoses Not on filedocumented in this encounter Additional Health Concerns Assessment Noted Time A fall risk assessment has been complete d for the patient 09/30/2024 9:33 AM EDT A Body Mass Index follow-up plan has been documented for the patient 05/28/2024 1:52 PM EST documented as of this encounter Care Teams Tire Mounter Relationship Specialty Start Date End Date Jevon Vazquez MD [address] [place] [address] #1 [address] [place] [address] PCP - General 03/23/22 documented as of this encounter
--- OUTSIDE RECORDS SUMMARY | 2025-01-19 09:09 | XMS_ITS | Encounter Summary ---
Author Organization Healthcare Address [address] [place] [address] Care Team Providers Care Engineering Systems Analyst Name Role Phone Jevon Vazquez MD Primary Care Provider [phone] Encounter Details Date Type Department Care Team [...] Hematology/BMT and Cellular Therapy Program [address] [phone] 01/27/2025 4:00 PM EDT Office Visit [facility] Hematology/BMT and Cellular Therapy Program [address] [phone] New Mckinney MD 800 [facility] [address] [place] [phone] documented as of this encounter Visit Diagnoses Not on filedocumented in this encounter Additional Health Concerns Assessment Noted Time A fall risk assessment has been complete d for the patient 09/30/2024 9:33 AM EDT A Body Mass Index follow-up plan has been documented for the patient 05/28/2024 1:52 PM EST documented as of this encounter Care Teams Engineering Systems Analyst Relationship Specialty Start Date End Date Jevon Vazquez MD [address] [place] [address] #1 #1 [place] [address] PCP - General 03/23/22 documented as of this encounter
--- OUTSIDE RECORDS SUMMARY | 2025-01-19 09:09 | XMS_ITS | Encounter Summary ---
Author Organization Healthcare Address [address] [place] [address] Care Team Providers Care Transport Tech Name Role Phone Jevon Vazquez MD Primary Care Provider [phone] Encounter Details Date Type Department Care Team [...] Hematology/BMT and Cellular Therapy Program [address] [phone] 01/27/2025 4:00 PM EDT Office Visit [facility] Hematology/BMT and Cellular Therapy Program [address] [phone] New Mckinney MD 800 [facility] [address] [place] [phone] documented as of this encounter Visit Diagnoses Not on filedocumented in this encounter Additional Health Concerns Assessment Noted Time A fall risk assessment has been complete d for the patient 09/30/2024 9:33 AM EDT A Body Mass Index follow-up plan has been documented for the patient 05/28/2024 1:52 PM EST documented as of this encounter Care Teams Transport Tech Relationship Specialty Start Date End Date Jevon Vazquez MD [address] [place] [address] #1 #1 [place] [address] PCP - General 03/23/22 documented as of this encounter
--- OUTSIDE RECORDS SUMMARY | 2025-01-19 09:09 | XMS_ITS | Clinical Summary ---
Author Organization [facility] Address [address] [place] [address] Phone Care Team Providers Care Body Former Name Role Phone Jevon Vazquez MD Primary Care Provider [phone] Allergies Active Allergy Reactions Criticality Noted Date [...] L4-5 LAMINECTOMY; Surgeon: Ivan Bartholomew MD; Location: [facility]; Service: Spine Medical History [...] 01/24/2023, 11/11/2022 Kidney Health: eGFR 11/12/2023 11/11/2022, 3 COVID-19 Vaccine ( season) 2024 02/18/2021, 07/10/2020, [...] 5.6 % 11/14/2022 2:57 PM EDT PREFERRED [facility], [employer] Est. Avg Glucose 148 mg/dL 11/14/2022 2:57 PM EDT [employer] [employer] [employer] Blood VENOUS BLOOD / Unknown Venipuncture / Unknown 11/11/2022 3:46 PM EDT 11/11/2022 3:55 PM EDT Narrative PREFERRED [facility] - 11/14/2022 2:57 PM EDT REFERENCE RANGE: Normal: 4.0-5.6% Pre-diabetes: 5.7-6.4% Provisional diagnosis of diabetes: >6.4% Hgb F>10% and anything which shortens red cell survival, such as hemolytic anemia, or unstable hemoglobin variants such as HbSS, HbSC, or HbCC, will lower the HbA1c value associated with a given level of glycemic control. us Lexi Maloney DO CHEMISTRY ORDERABLES Final R esult Jacked [address] [facility] , [address] [place] [id number] * (ABNORMAL) BASIC METABOLIC PANEL (11/11/2022 3:46 PM EDT) Sodium 136 136 - 145 mmol/L 11/11/2022 4:11 PM EDT [facility] Potassium 3.8 3.5 - 5.0 mmol/L 11/11/2022 4:11 PM EDT [facility] Chloride 102 98 - 107 mmol/L 11/11/2022 4:11 PM EDT [facility] Total CO2 24 22 - 29 mmol/L 11/11/2022 4:11 PM EDT [facility] Anion Gap 10 7 - 16 mmol/L 11/11/2022 4:11 PM EDT [facility] Calcium 10.1 8.8 - 10.4 mg/dL 11/11/2022 4:11 PM EDT [facility] Glucose Lvl 147(H) 82 - 100 mg/dL 11/11/2022 4:11 PM EDT [facility] BUN 15 8 - 23 mg/dL 11/11/2022 4:11 PM EDT [facility] Creatinine 0.82 0.51 - 1.30 mg/dL 11/11/2022 4:11 PM EDT [facility] eGFR (CKD-EPIcr 2021) 76 >=60 mL/min/1.7 3 m2 11/11/2022 4:11 PM EDT [facility] Comment:Estimated GFR was ca lculated using the CKD-EPIcr (2020) equation refit without race. The equation is recommended by the National Kidney Foundation - [place] [employer] of Nephrology Task Force. Blood VENOUS BLOOD / Unknown Venipuncture / Unknown 11/11/2022 3:46 PM EDT 11/11/2022 3:54 PM EDT us Leona Hanna DO CHEMISTRY ORDERABLES Final Res ult [facility] [address] [place] [address] * DX BONE DENSITY AXIAL SKELETON (07/25/2022 9:14 AM EDT) Anatomical Region Laterality Modality Dexa Scan 07/25/2022 Narrative 07/25/2022 3:45 PM EDT Indication: The patient is a female age 65 or older who requires a bone density assessment. Study was performed on Wego 5. Bone Density: Region BMD T-score Z-score [...] Payer (Ef fective 2016-Present) Name:Ashly Hernández Member ID:[id number] Relation to Subscriber:Self Name:Ashly Hernández Subscriber ID:[id number] Payer ID:Not on file Group ID:Not on file Type:Not on file Address: [address] MEDICARE SUPPLEMENT [place]ARE [place] PART A & B MEDICARE [place] PART A AND B Member Subscriber Plan / Payer (Ef fective 2016-Present) Name:Ashly Hernández Member ID:[id number] Relation to Subscriber:Self Name:Ashly Hernández Subscriber ID:[id number] Payer ID:Not on file Group ID:Not on file Type:Not on file Address: [address] MEDICARE SUPPLEMENT [employer] MEDICARE [place] PART A AND B [address] MEDICARE SUPPLEMENT Advance Directives For more information, please contact: [phone] * Full Code (Latest Code Status on File) Date Activated Date Inactivated Comments 11/14/2022 6:53 PM 11/16/2022 7:37 PM * Full Code Date Activated Date Inactivated Comments 11/12/2022 5:17 AM 11/14/2022 6:47 PM Care Teams Body Former Relationship Specialty Start Date End Date Jevon Vazquez MD [address] [place] [address] PCP - General Family Medicine 11/10/22
--- OUTSIDE RECORDS SUMMARY | 2025-01-19 09:09 | XMS_ITS | Encounter Summary ---
Author Organization [facility] Address [address] [place] [address] Care Team Providers Care Coke Burner Name Role Phone Jevon Vazquez MD Primary Care Provider [phone] Reason for Referral * Genetic Testing (Routine) - Closed Specialty Diagnoses / Procedures Referred By Rebecca Referred To Contact Lab Diagnoses Myelodysplastic syndrome (CMS/HCC) Procedures Cytogenetics Testing, Oncology New Mckinney MD [address] [address] Phone: tel: fax: Referral ID Status Reason Start Date Expiration Date Visits Re quested Visits Authorized [id number] Closed 12/29/2024 06/30/2026 1 1 * Genetic Testing (Routine) - Authorized Specialty Diagnoses / Procedures [facility] Referred To Contact Lab Diagnoses Myelodysplastic syndrome (CMS/HCC) Procedures Leukemia/Lymphoma - Immunophenotyping by Flow Cytometry New Mckinney MD 800 [facility] [address] [address] Phone: tel: fax: Referral ID Status Reason Start Date Expiration Date V isits Requested Visits Authorized [id number] Authorized 12/29/2024 06/30/2026 1 1 * Genetic Testing (Routine) - Authorized Specialty Diagnoses / Procedures [facility] Referred To Contact Lab Diagnoses Myelodysplastic syndrome (CMS/HCC) Procedures Bone marrow exam New Mckinney MD 800 [facility] [address] [address] Phone: tel: fax: Referral ID Status Reason Start Date Expiration Date V isits Requested Visits Authorized [id number] Authorized 12/29/2024 06/30/2026 1 1 Encounter Details Date Type Department Care Team ([facility] Contact Info) Description 12/29/2024 Orders Only [facility] Hematology/BMT and Cellular Therapy Program [address] [place] [address] New Mckinney MD 800 [facility] [address] [address] Myelodysplastic syndrome (CMS/HCC) (Primary Dx) [...] Hematology/BMT and Cellular Therapy Program [address] [place] [address] 01/27/2025 4:00 PM EDT Office Visit [facility] Hematology/BMT and Cellular Therapy Program [address] [place] [address] New Mckinney MD 800 [facility] [address] [address] Pending Results Name Type Priority Associated Diagnoses Date /Time Cytogenetics Testing, Oncology Lab Routine Myelodysplastic syndrome (CMS/HCC) 01/12/2025 9:55 AM EDT Scheduled Orders Name Type Priority Associated Diagnoses Orde r Schedule Cytogenetics Testing, Oncology Lab Routine Myelodysplastic syndrome (CMS/HCC) Expected: 12/29/2024 (Approximate), Expires: 07/02/2026 documented as of this encounter Results * Leukemia/Lymphoma - Immunophenotyping by Flow Cytometry (01/12/2025 9:55 AM EDT) Clinical Indication MDS 01/12/2025 4:19 PM EDT [facility] Flow Cytometry Interpretation APPROXIMATELY 27% MYELOID BLASTS EXPRESSING CD34, CD117, VARIABLE CD33, PARTIAL CD56, VARIABLE HLA-DR, PARTIAL DIM CD7, CD38 AND DIM CD45, SEE COMMENT, BBONE MARROW ASPIRATE. 01/12/2025 4:19 PM EDT [facility] Comments Specimen viability is [...] surface light chains 01/12/2025 4:19 PM EDT [facility] Disclaimer This test was developed and its performance characteristics determined by the Immuno-Molecular Pathology Laboratory at the [facility]. It has not been cleared or [...] clinical laboratory testing. 01/12/2025 4:19 PM EDT [facility] Pathologist Signature Reviewed by: Asad Hartman MD 01/12/2025 4:19 PM EDT [facility] MRD Indicated Test Not Indicated 4:19 PM EDT [facility] Bone Marrow Specimen from bone marrow obtained by aspiration / Unknown Non-blood Collection / Unknown 01/12/2025 9:55 AM EDT 01/12/2025 1:48 PM EDT us New Mckinney MD LAB FLOW CYTOMETRY ORDERABLES Final Result [facility] [address] [place] [address] * Bone marrow exam (01/12/2025 9:55 AM EDT) Case Report Bone Marrow Case: [id number] Authorizing Provider: New Mckinney MD Collected: 01/12/2025 0955 Ordering Location: [facility] Hematology/BMT and Received: 01/12/2025 [facility] Cellular Therapy Program Pathologist: Asad Hartman MD Specimens: A) - Bone Marrow Aspirate, left B) - Bone Marrow Biopsy, left C) - Peripheral Blood for Bone Marrow 9:41 AM EDT [facility] Final Diagnosis PERIPHERAL BLOOD AND BONE MARROW, LEFT POSTERIOR ILIAC CREST, (PERIPHERAL SMEAR, ASPIRATE SMEAR, AND CORE BIOPSY): - HYPOCELLULAR BONE MARROW WITH MARKEDLY DECREASED MEGAKARYOCYTES, DECREASED MATURING GRANULOPOIESIS, APPROXIMATELY 7-10% VARIABLY DISTRIBUTED BLASTS AND MORE THAN 50% RING SIDEROBLASTS, SEE COMMENT. 9:41 AM EDT [facility] at 0941 EDT Comment The discrepancy between blasts percentage by morphologic assessment and flow cytometric analysis is due to erythroid precursors that constitute majority of bone marrow cellularity and are removed by flow cytometry. 9:41 AM [facility] Clinical Information MDS 9:41 AM [facility] CBC and Differential [...] target cells. Platelets are decreased. 9:41 AM [facility] Bone Marrow Differential BONE MARROW DIFFERENTIAL: 300 cells Normal Patient Neutrophils 15-50 12 Metamyelocytes 4-19 0 Myelocytes 1-18 1 Promyelocytes 1-8 0 Blasts 0-2 7 Monocytes 0-5 7 Erythroid 16-38 61 Lymphocytes 3-24 7 Eosinophils 0-6 3 Basophils 0-2 0 Plasma cells 0-4 2 Other 9:41 AM [facility] Aspirate Smear The bone marrow [...] than 50% of erythroid precursors. 9:41 AM [facility] Core Biopsy CELLULARITY: Variably cellular [...] Bony trabeculae are normal. 9:41 AM T [facility] Special and Immunohistochemical Stains Immunohistochemica [...] at the [facility], [address] [place] [address]. All tests reported here, except those addressing [...] false negativity on decalcified specimens. 9:[address] [facility] Flow Cytometry Interpretation Flow cytometric analysis demonstrates approximately 27% population of myeloid blasts in this patient with history of myelodysplastic syndrome; expressing CD34, CD117, variable CD33, partial CD56, variable HLA-DR, partial dim CD7, CD38 and dim CD45 ([id number]). 9:41 AM [facility] Gross Description B. LEFT A single specimen is received in formalin labeled bone marrow biopsy left posterior iliac crest and consists of 1 piece(s) of red/white tissue measuring 0.9 cm in length 0.2 cm in diameter. The specimen is submitted in to Histology for decalcification and routine processing. Cold Time: <1m 9:41 AM EDT [facility] Note: A resident was involved in the service. I attest I examined the relevant preparations for the specimens and confirmed the diagnosis or interpretation. 9:41 AM EDT [facility] Bone Marrow Peripheral blood [...] MD LAB PATHOLOGY ORDERABLES Tracy stinson Result [facility] [address] [place] [address] documented in this encounter Visit Diagnoses Diagnosis Myelodysplastic syndrome (CMS/HCC)- Primary Myelodysplastic syndrome, unspecified documented in this encounter Additional Health Concerns Assessment Noted Time A fall risk assessment has been complete d for the patient 09/30/2024 9:33 AM EDT A Body Mass Index follow-up plan has been documented for the patient 05/28/2024 1:52 PM EST documented as of this encounter Care Teams Coke Burner Relationship Specialty Start Date End Date Jevon Vazquez MD [address] [place] [address] #1 #1 [place] [address] PCP - General 03/23/22 documented as of this encounter
--- OUTSIDE RECORDS SUMMARY | 2025-01-19 09:09 | XMS_ITS | Encounter Summary ---
Author Organization Healthcare Address [address] [place] [address] Care Team Providers Care Sample Tester Name Role Phone Jevon Vazquez MD Primary Care Provider [phone] Encounter Details Date Type Department Care Team ([facility] Contact Info) Description 12/29/2024 Telephone [facility] Hematology/BMT and Cellular Therapy Program [address] [address] Bibiana Sepulveda, FULLERETTE 800 [facility] [address] [place] [phone] Social History Tobacco Use Types Packs/Day Years [...] wants to repeat BMBx. She verbalizes understanding. Freight Traffic Consultant made aware. documented in this encounter Plan of Treatment Upcoming Encounters Date Type Department Care Team (Late Contact Info) Description 01/27/2025 3:30 PM EDT Clinical Support [facility] Hematology/BMT and Cellular Therapy Program [address] [place] [address] 01/27/2025 4:00 PM EDT Office Visit [facility] Hematology/BMT and Cellular Therapy Program [address] [address] New Mckinney MD 800 [facility] [address] [place] [phone] documented as of this encounter Visit Diagnoses Not on filedocumented in this encounter Additional Health Concerns Assessment Noted Time A fall risk assessment has been complete d for the patient 09/30/2024 9:33 AM EDT A Body Mass Index follow-up plan has been documented for the patient 05/28/2024 1:52 PM EST documented as of this encounter Care Teams Sample Tester Relationship Specialty Start Date End Date Jevon Vazquez MD [address] [place] [address] #1 #1 [place] [address] PCP - General 03/23/22 documented as of this encounter
--- OUTSIDE RECORDS SUMMARY | 2025-01-19 09:09 | XMS_ITS | Encounter Summary ---
Author Organization Healthcare Address [address] [place] [address] Care Team Providers Care Clothes Wringer Name Role Phone Jevon Vazquez MD Primary Care Provider [phone] Encounter Details Date Type Department Care Team [...] Hematology/BMT and Cellular Therapy Program [address] [address] 01/27/2025 4:00 PM EDT Office Visit [facility] Hematology/BMT and Cellular Therapy Program [address] [address] New Mckinney MD 800 [facility] [address] [place] [phone] documented as of this encounter Visit Diagnoses Not on filedocumented in this encounter Additional Health Concerns Assessment Noted Time A fall risk assessment has been complete d for the patient 09/30/2024 9:33 AM EDT A Body Mass Index follow-up plan has been documented for the patient 05/28/2024 1:52 PM EST documented as of this encounter Care Teams Clothes Wringer Relationship Specialty Start Date End Date Jevon Vazquez MD [address] [place] [address] #1 #1 [place] [address] PCP - General 03/23/22 documented as of this encounter
--- OUTSIDE RECORDS SUMMARY | 2025-01-19 09:09 | XMS_ITS | Encounter Summary ---
Author Organization Healthcare Address [address] [place] [address] Care Team Providers Care Glass Ribbon Machine Operator Name Role Phone Jevon Vazquez MD Primary Care Provider [phone] Encounter Details Date Type Department Care Team [...] Hematology/BMT and Cellular Therapy Program [address] [address] 01/27/2025 4:00 PM EDT Office Visit [facility] Hematology/BMT and Cellular Therapy Program [address] [address] New Mckinney MD 800 [facility] [address] [place] [phone] documented as of this encounter Visit Diagnoses Not on filedocumented in this encounter Additional Health Concerns Assessment Noted Time A fall risk assessment has been complete d for the patient 09/30/2024 9:33 AM EDT A Body Mass Index follow-up plan has been documented for the patient 05/28/2024 1:52 PM EST documented as of this encounter Care Teams Glass Ribbon Machine Operator Relationship Specialty Start Date End Date Jevon Vaqzuez MD [address] [place] [address] #1 #1 [place] [address] PCP - General 03/23/22 documented as of this encounter
--- OUTSIDE RECORDS SUMMARY | 2025-01-19 09:09 | XMS_ITS | Encounter Summary ---
Author Organization Healthcare Address [address] [place] [address] Care Team Providers Care Child Study Team Director Name Role Phone Jevon Vazquez MD Primary Care Provider [phone] Encounter Details Date Type Department Care Team [...] Hematology/BMT and Cellular Therapy Program [address] [address] 01/27/2025 4:00 PM EDT Office Visit [facility] Hematology/BMT and Cellular Therapy Program [address] [address] New Mckinney MD 800 [facility] [address] [place] [phone] documented as of this encounter Visit Diagnoses Not on filedocumented in this encounter Additional Health Concerns Assessment Noted Time A fall risk assessment has been complete d for the patient 09/30/2024 9:33 AM EDT A Body Mass Index follow-up plan has been documented for the patient 05/28/2024 1:52 PM EST documented as of this encounter Care Teams Child Study Team Director Relationship Specialty Start Date End Date Jevon Vazquez MD [address] [place] [address] #1 #1 [place] [address] PCP - General 03/23/22 documented as of this encounter
[2025-01-19 09:15] LABS: Hematocrit 25.9 % (37.0-47.0); Hemoglobin 8.9 g/dL (12.2-16.2); Immature Granulocytes % 0 %; Mean Corpuscular HGB Conc 34.4 g/dL (31.8-35.4); Mean Corpuscular Hemoglobin 30.8 pg (27.0-31.2); Mean Corpuscular Volume 89.6 fl (81-99); Nucleated Red Blood Cells % 3.0 %; Red Blood Count 2.89 M/mm3 (4.20-5.40); Red Cell Distribution Width-SD 62.5 fL
[2025-01-19 09:20] LABS: Platelet Count 12 K/mm3 (142-424); White Blood Count 1.7 K/mm3 (4.8-10.8)
[2025-01-19] MEDS: SODIUM CHLORIDE 0.9% 10ML FLUSH SYRINGE 10 ML IV (09:46)
[2025-01-19 09:59] LABS: RBC Morphology Normal; Total Cells Counted 100
[2025-01-19 10:50] LABS: Chloride 105 mmol/L (98-107)
[2025-01-19 10:51] LABS: Albumin Level 3.5 g/dl (3.5-5.0); Potassium 3.5 mmoL/L (3.5-5.1); Sodium 137 mmol/L (136-145)
[2025-01-19 10:53] LABS: Alanine Aminotransferase 17 U/L (12-78); Anion Gap 11.5 mEq/L (5-15); Aspartate Amino Transferase 37 U/L (14-36); Carbon Dioxide 24 mmol/L (22.0-30.0)
[2025-01-19 10:54] LABS: Albumin/Globulin Ratio 1.4 (1.1-1.8); Alkaline Phosphatase 51 U/L (38-126); Bilirubin,Total 0.7 mg/dl (0.2-1.3); Calcium 9.5 mg/dl (8.4-10.2); Globulin 2.5 g/dL (1.3-3.2); Glucose 158 mg/dl (74-100); Total Protein,Serum 6.0 g/dl (6.3-8.2)
[2025-01-19 10:58] LABS: Blood Urea Nitrogen 22 mg/dl (7-17)
[2025-01-19 10:59] LABS: Creatinine,Serum 1.00 mg/dl (0.52-1.04); Estimated Glomerular Filt Rate 54 ml/min (>60); GFR (African American) 66 ML/MIN (>60)
== END 2025-01-19 23:59 | disposition home or self-care (01) ==
PROVIDERS: PCP Family Medicine; Visit Provider Internal Medicine Medical Oncology
DX: C92.00 Acute myeloblastic leukemia, not having achieved remission (principal)
CPT/HCPCS: 36591; 80053; 85007; 85025; 85027; J1642

== ENCOUNTER 2025-01-22 08:59 | Outpatient (CLI) | payer MEDICARE, BC, SELFPAY ==
[2025-01-22 09:38] LABS: Hematocrit 23.9 % (37.0-47.0); Hemoglobin 8.0 g/dL (12.2-16.2); Immature Granulocytes % 0 %; Mean Corpuscular HGB Conc 33.5 g/dL (31.8-35.4); Mean Corpuscular Hemoglobin 30.4 pg (27.0-31.2); Mean Corpuscular Volume 90.9 fl (81-99); Nucleated Red Blood Cells % 3.6 %; Red Blood Count 2.63 M/mm3 (4.20-5.40); Red Cell Distribution Width-SD 62.9 fL
[2025-01-22 09:56] LABS: Platelet Count 5 K/mm3 (142-424); White Blood Count 1.7 K/mm3 (4.8-10.8)
[2025-01-22 10:25] LABS: Alanine Aminotransferase 16 U/L (12-78); Albumin Level 3.4 g/dl (3.5-5.0); Albumin/Globulin Ratio 1.6 (1.1-1.8); Alkaline Phosphatase 50 U/L (38-126); Anion Gap 13.7 mEq/L (5-15); Aspartate Amino Transferase 32 U/L (14-36); Bilirubin,Total 0.8 mg/dl (0.2-1.3); Blood Urea Nitrogen 21 mg/dl (7-17); Calcium 9.0 mg/dl (8.4-10.2); Carbon Dioxide 22 mmol/L (22.0-30.0); Chloride 105 mmol/L (98-107); Creatinine,Serum 1.10 mg/dl (0.52-1.04); Estimated Glomerular Filt Rate 49 ml/min (>60); GFR (African American) 59 ML/MIN (>60); Globulin 2.1 g/dL (1.3-3.2); Glucose 162 mg/dl (74-100); Potassium 3.7 mmoL/L (3.5-5.1); Sodium 137 mmol/L (136-145); Total Protein,Serum 5.5 g/dl (6.3-8.2)
[2025-01-22 10:48] LABS: RBC Morphology Normal; Total Cells Counted 100
--- NOTE | 2025-01-22 14:40 | PC.NURSE ---
PRBCs and platelets ready at 1440. pt did not want to stay for products at this time and requested to come back in the morning. port left in for tomorrow.
== END 2025-01-22 23:59 | disposition home or self-care (01) ==
LOC: INF 09:01
PROVIDERS: PCP Family Medicine; Visit Provider Internal Medicine Medical Oncology
DX: C92.00 Acute myeloblastic leukemia, not having achieved remission (principal)
CPT/HCPCS: 36591; 80053; 85007; 85025; 85027; 86850

== ENCOUNTER 2025-01-23 09:00 | Outpatient (CLI) | payer MEDICARE, BC, SELFPAY ==
--- OUTSIDE RECORDS SUMMARY | 2025-01-12 09:30 | XMS_ITS | Encounter Summary ---
Author Organization Healthcare Address [address] [place] [address] Care Team Providers Care Tissue Technician Name Role Phone Jevon Vazquez MD Primary Care Provider [phone] Reason for Visit * Reason Comments Labs Encounter Details Date Type Department Care Team ([facility] Contact Info) Description 01/12/2025 9:30 AM EDT Clinical Support [facility] Hematology/BMT and Cellular Therapy Program [address] [phone] Social History Tobacco Use Types Packs/Day Years [...] ([facility] Contact Info) Description 01/27/2025 3:30 PM EDT Clinical Support [facility] Hematology/BMT and Cellular Therapy Program [address] [phone] 01/27/2025 4:00 PM EDT Office Visit [facility] Hematology/BMT and Cellular Therapy Program [address] [phone] New Mckinney MD 800 [facility] [address] [place] [phone] documented as of this encounter Visit Diagnoses Not on filedocumented in this encounter Additional Health Concerns Assessment Noted Time A fall risk assessment has been complete d for the patient 09/30/2024 9:33 AM EDT A Body Mass Index follow-up plan has been documented for the patient 05/28/2024 1:52 PM EST documented as of this encounter Care Teams Tissue Technician Relationship Specialty Start Date End Date Jevon Vazquez MD [address] [place] [address] #1 #1 [place] [phone] PCP - General 03/23/22 documented as of this encounter
--- OUTSIDE RECORDS SUMMARY | 2025-01-12 10:00 | XMS_ITS | Encounter Summary ---
Author Organization [facility] Address [address] [place] [address] Care Team Providers Care Label Drier Name Role Phone Jevon Vazquez MD Primary Care Provider [phone] Reason for Visit * Genetic Testing (Routine) - Authorized Specialty Diagnoses / Procedures Referred By Rebecca barron Referred To Contact Lab Diagnoses Myelodysplastic syndrome (CMS/HCC) Procedures Leukemia/Lymphoma - Immunophenotyping by Flow Cytometry New Mckinney MD [address] [facility] [address] [address] Phone: tel: fax: Referral ID Status Reason Start Date Expiration Date V isits Requested Visits Authorized [id number] Authorized 12/29/2024 06/30/2026 1 1 Encounter Details Date Type Department Care Team (Latest Contact Info) Description 01/12/2025 10:00 AM EDT Procedure Visit [facility] Hematology/BMT and Cellular Therapy Program [address] [address] Rebecca Brarientos PA [address] [facility] [address] [address] Myelodysplastic syndrome (CMS/HCC); Acute myeloid [...] position. There were no complications. DANIELA Davis [facility] CC HEMATOLOGY/BMT AND CELLULAR THERAPY PROGRAM [address] [facility] [phone] / documented in this encounter Plan of Treatment Upcoming Encounters Date Type Department Care Team ([facility] st Contact Info) Description 01/27/2025 3:30 PM EDT Clinical Support [facility] Hematology/BMT and Cellular Therapy Program [address] [phone] 01/27/2025 4:00 PM EDT Office Visit [facility] Hematology/BMT and Cellular Therapy Program [address] [phone] New Mckinney MD 800 [facility] [address] [place] [phone] documented as of this encounter Procedures Procedure [...] Type Bone Marrow 01/20/2025 12:21 PM EDT [facility] Clinical Indication Myelodysplastic Syndrome 01/20/2025 12:21 PM EDT [facility] Specimen Adequacy Adequate 025 12:21 PM EDT [facility] Chromosome Analysis Result Giemsa-banded metaphase cells from unstimulated bone marrow cultures showed the following chromosome pattern: 43~44,X,-X,add(5)( q23),del(5)(q13q33 ),todd(7)ins?(7)(q1 1.2q11.2)t(7;12)(q 11.2;q13),-12,todd( 17)add(17)(p13.2)a dd(17)(q21)[16]/88 ,XX,idemx2[cp3]/46 ,XY[1] 01/20/2025 12:21 PM EDT [facility] Interpretation Abnormal female chromosome analysis. 95% of metaphase cells analyzed showed clonal abnormalities consistent with this patient's previous abnormal results (see [id number]). Clinical correlation is recommended. Note: Per [employer] (CAP) requirement an additional karyotype was performed and charged due to the presence of clonal abnormalities. # cells counted = 20 # cells analyzed = 20 # cells karyotyped = 3 Band resolution: 400-450 01/20/2025 12:21 PM EDT [facility] Pathologist Signature Reviewed by: Corey Tejada 01/20/2025 12:21 PM EDT [facility] Bone Marrow Non-blood Collection / Unknown 01/12/2025 9:55 AM EDT 01/12/2025 12:37 PM EDT us New Mckinney MD LAB CYTOGENETICS ORDERABLES F inal Result [facility] [address] [place] [address] * Leukemia/Lymphoma - Immunophenotyping by Flow Cytometry (01/12/2025 9:55 AM EDT) Clinical Indication MDS 01/12/2025 4:19 PM EDT [facility] Flow Cytometry Interpretation APPROXIMATELY 27% MYELOID BLASTS EXPRESSING CD34, CD117, VARIABLE CD33, PARTIAL CD56, VARIABLE HLA-DR, PARTIAL DIM CD7, CD38 AND DIM CD45, SEE COMMENT, BBONE MARROW ASPIRATE. 01/12/2025 4:19 PM EDT [facility] Comments Specimen viability is 89%. [...] surface light chains 01/12/2025 4:19 PM EDT [facility] Disclaimer This test was developed and its performance characteristics determined by the Immuno-Molecular Pathology Laboratory at the [facility]. It has not been cleared [...] clinical laboratory testing. 01/12/2025 4:19 PM EDT [facility] Pathologist Signature Reviewed by: Asad Hartman MD 01/12/2025 4:19 PM EDT [facility] MRD Indicated Test Not Indicated 4:19 PM EDT [facility] Bone Marrow Specimen from bone marrow obtained by aspiration / Unknown Non-blood Collection / Unknown 01/12/2025 9:55 AM EDT 01/12/2025 1:48 PM EDT us New Mckinney MD LAB FLOW CYTOMETRY ORDERABLES Final Result [facility] [address] [place] [address] * Bone marrow exam (01/12/2025 9:55 AM EDT) Case Report Bone Marrow Case: [id number] Authorizing Provider: New Mckinney MD Collected: 01/12/2025 0955 Ordering Location: [facility] Hematology/BMT and Received: 01/12/2025 1143 Cellular Therapy Program Pathologist: Asad Hartman MD Specimens: A) - Bone Marrow Aspirate, left B) - Bone Marrow Biopsy, left C) - Peripheral Blood for Bone Marrow 9:41 AM EDT [facility] Final Diagnosis PERIPHERAL BLOOD AND BONE MARROW, LEFT POSTERIOR ILIAC CREST, (PERIPHERAL SMEAR, ASPIRATE SMEAR, AND CORE BIOPSY): - HYPOCELLULAR BONE MARROW WITH MARKEDLY DECREASED MEGAKARYOCYTES, DECREASED MATURING GRANULOPOIESIS, APPROXIMATELY 7-10% VARIABLY DISTRIBUTED BLASTS AND MORE THAN 50% RING SIDEROBLASTS, SEE COMMENT. 9:41 AM EDT [facility] at 0941 EDT Comment The discrepancy between blasts percentage by morphologic assessment and flow cytometric analysis is due to erythroid precursors that constitute majority of bone marrow cellularity and are removed by flow cytometry. 9:41 AM EDT [facility] Clinical Information MDS 9:41 AM EDT [facility] CBC and [...] cells. Platelets are decreased. 9:41 AM EDT [facility] Bone Marrow Differential BONE MARROW DIFFERENTIAL: 300 cells Normal Patient Neutrophils 15-50 12 Metamyelocytes 4-19 0 Myelocytes 1-18 1 Promyelocytes 1-8 0 Blasts 0-2 7 Monocytes 0-5 7 Erythroid 16-38 61 Lymphocytes 3-24 7 Eosinophils 0-6 3 Basophils 0-2 0 Plasma cells 0-4 2 Other 9:41 AM EDT [facility] Aspirate Smear The bone marrow [...] than 50% of erythroid precursors. 9:41 AM EDT [facility] Core Biopsy CELLULARITY: Variably cellular [...] BONE: Bony trabeculae are normal. 9:41 AM EDT [facility] Special and Immunohistochemical Stains Immunohistochemica l stains [...] at the [facility], [address] [place] [address]. All tests reported here, except those addressing [...] negativity on decalcified specimens. 9:41 AM EDT [facility] Flow Cytometry Interpretation Flow cytometric analysis demonstrates approximately 27% population of myeloid blasts in this patient with history of myelodysplastic syndrome; expressing CD34, CD117, variable CD33, partial CD56, variable HLA-DR, partial dim CD7, CD38 and dim CD45 ([id number]). 9:41 AM EDT [facility] Gross Description B. LEFT A single specimen is received in formalin labeled bone marrow biopsy left posterior iliac crest and consists of 1 piece(s) of red/white tissue measuring 0.9 cm in length 0.2 cm in diameter. The specimen is submitted in to Histology for decalcification and routine processing. Cold Time: <1m 9:41 AM EDT [facility] Note: A resident was involved in the service. I attest I examined the relevant preparations for the specimens and confirmed the diagnosis or interpretation. 9:41 AM EDT [facility] Bone [...] MD LAB PATHOLOGY ORDERABLES Tracy stinson Result [facility] [address] [place] [address] * (ABNORMAL) CBC and Differential (01/12/2025 9:15 AM EDT) WBC Count 1.31(L) 3.70 - 10.30 10*3/uL LAB HEMATOLOGY METHOD 01/12/2025 9:58 AM EDT [facility] RBC Count 2.70(L) 3.90 - 5.20 10*6/uL LAB HEMATOLOGY METHOD 01/12/2025 9:58 AM EDT [facility] HGB 8.4(L) 11.2 - 15.7 g/dL LAB HEMATOLOGY METHOD 01/12/2025 9:58 AM EDT [facility] HCT 25.0(L) 34.0 - 45.0 % LAB HEMATOLOGY METHOD 01/12/2025 9:58 AM EDT [facility] Platelet Count 31(L) 155 - 369 10*3/uL LAB HEMATOLOGY METHOD 01/12/2025 9:58 AM EDT [facility] MCV 93 79 - 98 fL LAB HEMATOLOGY METHOD 01/12/2025 9:58 AM EDT [facility] MCH 31.1 26.0 - 32.0 pg LAB HEMATOLOGY METHOD 01/12/2025 9:58 AM EDT [facility] MCHC 33.6 30.7 - 35.5 g/dL LAB HEMATOLOGY METHOD 01/12/2025 9:58 AM EDT [facility] RDW 20.0(H) 11.5 - 14.5 % LAB HEMATOLOGY METHOD 01/12/2025 9:58 AM EDT [facility] MPV 8.8 8.8 - 12.5 fL LAB HEMATOLOGY METHOD 01/12/2025 9:58 AM EDT [facility] nRBC 3.1(H) <=0.0 per 100 WBCs LAB HEMATOLOGY METHOD 01/12/2025 9:58 AM EDT [facility] Differential Type Automated LAB HEMATOLOGY METHOD 01/12/2025 9:58 AM EDT [facility] Neutrophils % 19 % LAB HEMATOLOGY METHOD 01/12/2025 9:58 AM EDT [facility] Lymphocytes % 64 % LAB HEMATOLOGY METHOD 01/12/2025 9:58 AM EDT [facility] Monocytes % 15 % LAB HEMATOLOGY METHOD 01/12/2025 9:58 AM EDT [facility] Eosinophils % 2 % LAB HEMATOLOGY METHOD 01/12/2025 9:58 AM EDT [facility] Basophils % 0 % LAB HEMATOLOGY METHOD 01/12/2025 9:58 AM EDT [facility] Immature Granulocytes % 0 % LAB HEMATOLOGY METHOD 01/12/2025 9:58 AM EDT [facility] Neutrophils Absolute 0.25(LL) 1.60 - 6.10 10*3/uL LAB HEMATOLOGY METHOD 01/12/2025 9:58 AM EDT [facility] Lymphocytes Absolute 0.84(L) 1.20 - 3.90 10*3/uL LAB HEMATOLOGY METHOD 01/12/2025 9:58 AM EDT [facility] Monocytes Absolute 0.20(L) 0.30 - 0.90 10*3/uL LAB HEMATOLOGY METHOD 01/12/2025 9:58 AM EDT [facility] Eosinophils Absolute 0.02 0.00 - 0.50 10*3/uL LAB HEMATOLOGY METHOD 01/12/2025 9:58 AM EDT [facility] Basophils Absolute 0.00 0.00 - 0.10 10*3/uL LAB HEMATOLOGY METHOD 01/12/2025 9:58 AM EDT [facility] Immature Granulocytes Absolute 0.00 0.00 - 0.06 10*3/uL LAB HEMATOLOGY METHOD 01/12/2025 9:58 AM EDT [facility] Blood Blood sample taken from central line / Unknown (Port) Long-term Catheter / Unknown 01/12/2025 9:15 AM EDT 01/12/2025 9:31 AM EDT Narrative [facility] - 01/12/2025 9:58 AM EDT Therapeutic decision making should be based on absolute values, rather than percentages. us New Mckinney MD LAB BLOOD ORDERABLES Final Re sult [facility] [address] [place] [id number] * (ABNORMAL) Comprehensive Metabolic Panel, Plasma (01/12/2025 9:15 AM EDT) Glucose, Plasma 121(H) 74 - 99 mg/dL 01/12/2025 10:02 AM EDT [facility] BUN, Plasma 24(H) 8 - 23 mg/dL 01/12/2025 10:02 AM EDT [facility] Creatinine, Plasma 1.19(H) 0.60 - 1.10 mg/dL 01/12/2025 10:02 AM EDT [facility] BUN/Creatinine Ratio 20 01/12/2025 10:02 AM EDT [facility] Sodium, Plasma 138 136 - 145 mmol/L 01/12/2025 10:02 AM EDT [facility] Potassium, Plasma 3.9 3.6 - 4.9 mmol/L 01/12/2025 10:02 AM EDT [facility] Chloride, Plasma 105 97 - 107 mmol/L 01/12/2025 10:02 AM EDT [facility] CO2, Plasma 21(L) 22 - 29 mmol/L 01/12/2025 10:02 AM EDT [facility] Anion Gap 12 6 - 16 mmol/L 01/12/2025 10:02 AM EDT [facility] Total Calcium, Plasma 9.7 8.9 - 10.2 mg/dL 01/12/2025 10:02 AM EDT [facility] Total Protein 6.1(L) 6.3 - 7.9 g/dL 01/12/2025 10:02 AM EDT [facility] Albumin, Plasma 3.9 3.5 - 5.2 g/dL 01/12/2025 10:02 AM EDT [facility] AST, Plasma 28 10 - 35 U/L 01/12/2025 10:02 AM EDT [facility] ALT, Plasma 12 10 - 35 U/L 01/12/2025 10:02 AM EDT [facility] Alkaline Phosphatase, Plasma 43(L) 46 - 142 U/L 01/12/2025 10:02 AM EDT [facility] Total Bilirubin, Plasma 0.5 0.2 - 1.1 mg/dL 01/12/2025 10:02 AM EDT [facility] eGFRcr 48.1 mL/min/1.7 3m*2 01/12/2025 10:02 AM EDT [facility] Comment:Reported eGFRcr in m L/min/1.73m2 is based the CKD-EPI 2020 equation that does not use a race coefficient. Blood Blood sample taken from central line / Unknown (Port) Long-term Catheter / Unknown 01/12/2025 9:15 AM EDT 01/12/2025 9:33 AM EDT us New Mckinney MD LAB BLOOD ORDERABLES Final Re sult [facility] [address] [place] [address] documented in this encounter Visit Diagnoses Diagnosis [...] as of this encounter Care Teams Label Drier Relationship Specialty Start Date End Date Jevon Vazquez MD [address] [place] [address] #1 #1 JOSEP [place] [id number] PCP - General 03/23/22 documented as of this encounter
[2025-01-23] VITALS (21 sets, daily range): BP systolic 103–127; BP diastolic 45–67; PULSE 69–82; RESP 18–71; TEMP 36.2–36.6; O2SAT 96–98
[2025-01-23] MEDS: ACETAMINOPHEN 325MG TAB 650 MG PO (09:00)
--- OUTSIDE RECORDS SUMMARY | 2025-01-23 09:03 | XMS_ITS | Encounter Summary ---
Author Organization Healthcare Address [address] [place] [address] Care Team Providers Care Fax Machine Repairer Name Role Phone Jevon Vazquez MD Primary Care Provider [phone] Encounter Details Date Type Department Care Team [...] Hematology/BMT and Cellular Therapy Program [address] [address] 01/27/2025 4:00 PM EDT Office Visit [facility] Hematology/BMT and Cellular Therapy Program [address] [address] New Mckinney MD 800 [facility] [address] [place] [phone] documented as of this encounter Visit Diagnoses Not on filedocumented in this encounter Additional Health Concerns Assessment Noted Time A fall risk assessment has been complete d for the patient 09/30/2024 9:33 AM EDT A Body Mass Index follow-up plan has been documented for the patient 05/28/2024 1:52 PM EST documented as of this encounter Care Teams Fax Machine Repairer Relationship Specialty Start Date End Date Jevon Vazquez MD [address] [place] [address] #1 #1 [place] [address] PCP - General 03/23/22 documented as of this encounter
--- OUTSIDE RECORDS SUMMARY | 2025-01-23 09:03 | XMS_ITS | Encounter Summary ---
Author Organization Healthcare Address [address] [place] [address] Care Team Providers Care Parenting Skills Instructor Name Role Phone Jevon Vazquez MD Primary Care Provider [phone] Encounter Details Date Type Department Care Team [...] Hematology/BMT and Cellular Therapy Program [address] [address] 01/27/2025 4:00 PM EDT Office Visit [facility] Hematology/BMT and Cellular Therapy Program [address] [address] New Mckinney MD 800 [facility] [address] [place] [phone] documented as of this encounter Visit Diagnoses Not on filedocumented in this encounter Additional Health Concerns Assessment Noted Time A fall risk assessment has been complete d for the patient 09/30/2024 9:33 AM EDT A Body Mass Index follow-up plan has been documented for the patient 05/28/2024 1:52 PM EST documented as of this encounter Care Teams Parenting Skills Instructor Relationship Specialty Start Date End Date Jevon Vazquez MD [address] [place] [address] #1 #1 [place] [address] PCP - General 03/23/22 documented as of this encounter
--- OUTSIDE RECORDS SUMMARY | 2025-01-23 09:03 | XMS_ITS | Encounter Summary ---
Author Organization Healthcare Address [address] [place] [address] Care Team Providers Care Spray Maker Name Role Phone Jevon Vazquez MD Primary Care Provider [phone] Encounter Details Date Type Department Care Team [...] Hematology/BMT and Cellular Therapy Program [address] [address] 01/27/2025 4:00 PM EDT Office Visit [facility] Hematology/BMT and Cellular Therapy Program [address] [address] New Mckinney MD 800 [facility] [address] [place] [phone] documented as of this encounter Visit Diagnoses Not on filedocumented in this encounter Additional Health Concerns Assessment Noted Time A fall risk assessment has been complete d for the patient 09/30/2024 9:33 AM EDT A Body Mass Index follow-up plan has been documented for the patient 05/28/2024 1:52 PM EST documented as of this encounter Care Teams Spray Maker Relationship Specialty Start Date End Date Jevon Vazquez MD [address] [place] [address] #1 #1 [place] [address] PCP - General 03/23/22 documented as of this encounter
--- OUTSIDE RECORDS SUMMARY | 2025-01-23 09:03 | XMS_ITS | Encounter Summary ---
Author Organization Healthcare Address [address] [place] [address] Care Team Providers Care Sander Hand Name Role Phone Jevon Vazquez MD Primary Care Provider [phone] Encounter Details Date Type Department Care Team (Late Contact Info) Description 01/16/2025 Telephone [facility] Hematology/BMT and Cellular Therapy Program [address] [place] [address] [place] [address] Daxa Elliott RN [facility] Social History Tobacco Use [...] and Cellular Therapy Program 750 [facility] [place] [address] 01/27/2025 4:00 PM EDT Office Visit [facility] Hematology/BMT and Cellular Therapy Program 750 [facility] [place] [address] New Mckinney MD 800 [facility] [address] [place] [phone] documented as of this encounter Visit Diagnoses Not on filedocumented in this encounter Additional Health Concerns Assessment Noted Time A fall risk assessment has been complete d for the patient 09/30/2024 9:33 AM EDT A Body Mass Index follow-up plan has been documented for the patient 05/28/2024 1:52 PM EST documented as of this encounter Care Teams Sander Hand Relationship Specialty Start Date End Date Jevon Vazquez MD [address] [place] [address] #1 #1 [place] [address] PCP - General 03/23/22 documented as of this encounter
--- OUTSIDE RECORDS SUMMARY | 2025-01-23 09:03 | XMS_ITS ---
Author Organization [facility] Address [address] [place] [address] Care Team Providers Care Film Mounter Name Role Phone Jevon Vazquez MD Primary Care Provider [phone] Active Problems Problem Noted Date Diagnosed Date [...]
--- OUTSIDE RECORDS SUMMARY | 2025-01-23 09:03 | XMS_ITS | Encounter Summary ---
Author Organization Healthcare Address [address] [place] [address] Care Team Providers Care Web Design Intern Name Role Phone Jevon Vazquez MD Primary Care Provider [phone] Encounter Details Date Type Department Care Team [...] Hematology/BMT and Cellular Therapy Program [address] [address] 01/27/2025 4:00 PM EDT Office Visit [facility] Hematology/BMT and Cellular Therapy Program [address] [address] New Mckinney MD 800 [facility] [address] [place] [phone] documented as of this encounter Visit Diagnoses Not on filedocumented in this encounter Additional Health Concerns Assessment Noted Time A fall risk assessment has been complete d for the patient 09/30/2024 9:33 AM EDT A Body Mass Index follow-up plan has been documented for the patient 05/28/2024 1:52 PM EST documented as of this encounter Care Teams Web Design Intern Relationship Specialty Start Date End Date Jevon Vazquez MD [address] [place] [address] #1 #1 [place] [address] PCP - General 03/23/22 documented as of this encounter
--- OUTSIDE RECORDS SUMMARY | 2025-01-23 09:03 | XMS_ITS | Encounter Summary ---
Author Organization [facility] Address [address] [place] [address] Care Team Providers Care Director Property Name Role Phone Jevon Vazquez MD Primary Care Provider [phone] Reason for Visit * Reason Comments Med Refill Encounter Details Date Type Department Care Team ([facility] Contact Info) Description 01/30/2024 Refill [facility] Hematology/BMT and Cellular Therapy Program [address] [place] [phone] New Mckinney MD 800 [facility] [address] [place] [phone] Social History Tobacco Use Types Packs/Day Years [...] Hematology/BMT and Cellular Therapy Program [address] [place] [address] 01/27/2025 4:00 PM EDT Office Visit [facility] Hematology/BMT and Cellular Therapy Program [address] [address] New Mckinney MD 800 [facility] [address] [place] [phone] documented as of this encounter Visit Diagnoses Not on filedocumented in this encounter Additional Health Concerns Assessment Noted Time A fall risk assessment has been complete d for the patient 01/11/2024 9:16 AM EDT A Body Mass Index follow-up plan has been documented for the patient 01/21/2024 6:16 AM EDT documented as of this encounter Care Teams Director Property Relationship Specialty Start Date End Date Jevon Vazquez MD [address] [place] [address] #1 #1 [place] [address] PCP - General 03/23/22 documented as of this encounter
--- OUTSIDE RECORDS SUMMARY | 2025-01-23 09:03 | XMS_ITS | Encounter Summary ---
Author Organization Healthcare Address [address] [place] [address] Care Team Providers Care Sack Sorter Name Role Phone Jevon Vazquez MD Primary Care Provider [phone] Encounter Details Date Type Department Care Team (Late Contact Info) Description 11/27/2024 Telephone [facility] Hematology/BMT and Cellular Therapy Program [address] [address] Zonia Hoffman, CLIENT SUPPORT ADMINISTRATOR 800 [facility] [address] [place] [phone] Social History Tobacco Use Types Packs/Day Years [...] Hematology/BMT and Cellular Therapy Program [address] [place] [address] 01/27/2025 4:00 PM EDT Office Visit PAV Hematology/BMT and Cellular Therapy Program [address] [place] [address] New Mckinney MD 800 [facility] [address] [place] [phone] documented as of this encounter Visit Diagnoses Not on filedocumented in this encounter Additional Health Concerns Assessment Noted Time A fall risk assessment has been complete d for the patient 09/30/2024 9:33 AM EDT A Body Mass Index follow-up plan has been documented for the patient 05/28/2024 1:52 PM EST documented as of this encounter Care Teams Sack Sorter Relationship Specialty Start Date End Date Jevon Vazquez MD [address] [place] [address] #1 #1 [place] [address] PCP - General 03/23/22 documented as of this encounter
--- OUTSIDE RECORDS SUMMARY | 2025-01-23 09:03 | XMS_ITS | Encounter Summary ---
Author Organization [facility] Address [address] [place] [address] Care Team Providers Care Strainer Tender Name Role Phone Jevon Vazquez MD Primary Care Provider [phone] Encounter Details Date Type Department Care Team ([facility] Contact Info) Description 01/07/2025 Telephone [facility] Hematology/BMT and Cellular Therapy Program [address] [phone] Sabine Clemons MD 800 [facility] [address] [place] [phone] Social History Tobacco Use Types Packs/Day Years [...] Team ([facility] Contact Info) Description 01/27/2025 3:30 PM EDT Clinical Support [facility] Hematology/BMT and Cellular Therapy Program [address] [phone] 01/27/2025 4:00 PM EDT Office Visit [facility] Hematology/BMT and Cellular Therapy Program [address] [phone] New Mckinney MD 800 [facility] [address] [place] [address] documented as of this encounter Visit Diagnoses Not on filedocumented in this encounter Additional Health Concerns Assessment Noted Time A fall risk assessment has been complete d for the patient 09/30/2024 9:33 AM EDT A Body Mass Index follow-up plan has been documented for the patient 05/28/2024 1:52 PM EST documented as of this encounter Care Teams Strainer Tender Relationship Specialty Start Date End Date Jevon Vazquez MD [address] [place] [address] [address]1 [address] [place] [address] PCP - General 03/23/22 documented as of this encounter
--- OUTSIDE RECORDS SUMMARY | 2025-01-23 09:03 | XMS_ITS | Encounter Summary ---
Author Organization [facility] Address [address] [place] [address] Care Team Providers Care Records Technician Name Role Phone Jevon Vazquez MD Primary Care Provider [phone] Reason for Visit * Reason Comments Med Refill Encounter Details Date Type Department Care Team ([facility] Contact Info) Description 12/09/2024 Refill [facility] Hematology/BMT and Cellular Therapy Program [address] [phone] Zonia Hoffman, CLAM DIGGER 800 [facility] [address] [place] [phone] Social History Tobacco Use Types Packs/Day Years [...] [facility] Contact Info) Description 01/27/2025 3:30 PM EDT Clinical Support [facility] CC Hematology/BMT and Cellular Therapy Program [address] [phone] 01/27/2025 4:00 PM EDT Office Visit [facility] Hematology/BMT and Cellular Therapy Program [address] [phone] New Mckinney MD 800 [facility] [address] [place] [phone] documented as of this encounter Visit Diagnoses Not on filedocumented in this encounter Additional Health Concerns Assessment Noted Time A fall risk assessment has been complete d for the patient 09/30/2024 9:33 AM EDT A Body Mass Index follow-up plan has been documented for the patient 05/28/2024 1:52 PM EST documented as of this encounter Care Teams Records Technician Relationship Specialty Start Date End Date Jevon Vazquez MD [address] [place] [address] [address]1 [address]1 [place] [address] PCP - General 03/23/22 documented as of this encounter
--- OUTSIDE RECORDS SUMMARY | 2025-01-23 09:03 | XMS_ITS | Encounter Summary ---
Author Organization Healthcare Address [address] [place] [address] Care Team Providers Care Clothespin Machine Operator Name Role Phone Jevon Vazquez MD Primary Care Provider [phone] Encounter Details Date Type Department Care Team [...] Hematology/BMT and Cellular Therapy Program [address] [phone] 01/27/2025 4:00 PM EDT Office Visit [facility] Hematology/BMT and Cellular Therapy Program [address] [phone] New Mckinney MD 800 [facility] [address] [place] [phone] documented as of this encounter Visit Diagnoses Not on filedocumented in this encounter Additional Health Concerns Assessment Noted Time A fall risk assessment has been complete d for the patient 09/30/2024 9:33 AM EDT A Body Mass Index follow-up plan has been documented for the patient 05/28/2024 1:52 PM EST documented as of this encounter Care Teams Clothespin Machine Operator Relationship Specialty Start Date End Date Jevon Vazquez MD [address] [place] [address] [address]1 [address] [place] [address] PCP - General 03/23/22 documented as of this encounter
--- OUTSIDE RECORDS SUMMARY | 2025-01-23 09:03 | XMS_ITS | Encounter Summary ---
Author Organization Healthcare Address [address] [place] [address] Care Team Providers Care Venereal Disease Control Head Name Role Phone Jevon Vazquez MD Primary Care Provider [phone] Encounter Details Date Type Department Care Team ([facility] Contact Info) Description 12/29/2024 Telephone P[facility] CC Hematology/BMT and Cellular Therapy Program [address] [phone] Bibiana Sepulveda, DIE CAST ENGINEER 800 [facility] [address] [place] [phone] Social History Tobacco Use Types Packs/Day Years [...] wants to repeat BMBx. She verbalizes understanding. Umbrella Mender made aware. documented in this encounter Plan of Treatment Upcoming Encounters Date Type Department Care Team (Late Contact Info) Description 01/27/2025 3:30 PM EDT Clinical Support [facility] Hematology/BMT and Cellular Therapy Program [address] [place] [address] 01/27/2025 4:00 PM EDT Office Visit P[facility] CC Hematology/BMT and Cellular Therapy Program [address] [phone] New Mckinney MD 800 [facility] [address] [place] [phone] documented as of this encounter Visit Diagnoses Not on filedocumented in this encounter Additional Health Concerns Assessment Noted Time A fall risk assessment has been complete d for the patient 09/30/2024 9:33 AM EDT A Body Mass Index follow-up plan has been documented for the patient 05/28/2024 1:52 PM EST documented as of this encounter Care Teams Venereal Disease Control Head Relationship Specialty Start Date End Date Jevon Vazquez MD [address] [place] [address] #1 [address]1 [place] [address] PCP - General 03/23/22 documented as of this encounter
--- OUTSIDE RECORDS SUMMARY | 2025-01-23 09:03 | XMS_ITS | Encounter Summary ---
Author Organization Healthcare Address [address] [place] [address] Care Team Providers Care Advertising Agent Name Role Phone Jevon Vazquez MD Primary Care Provider [phone] Encounter Details Date Type Department Care Team [...] Hematology/BMT and Cellular Therapy Program [address] [phone] 01/27/2025 4:00 PM EDT Office Visit [facility] CC Hematology/BMT and Cellular Therapy Program [address] [phone] New Mckinney MD 800 [facility] [address] [place] [phone] documented as of this encounter Visit Diagnoses Not on filedocumented in this encounter Additional Health Concerns Assessment Noted Time A fall risk assessment has been complete d for the patient 09/30/2024 9:33 AM EDT A Body Mass Index follow-up plan has been documented for the patient 05/28/2024 1:52 PM EST documented as of this encounter Care Teams Advertising Agent Relationship Specialty Start Date End Date Jevon Vazquez MD [address] [place] [address] #1 [address]1 [place] [address] PCP - General 03/23/22 documented as of this encounter
--- OUTSIDE RECORDS SUMMARY | 2025-01-23 09:03 | XMS_ITS | Encounter Summary ---
Author Organization Healthcare Address [address] [place] [address] Care Team Providers Care Acrylic Fabricator Name Role Phone Jevon Vazquez MD Primary Care Provider [phone] Encounter Details Date Type Department Care Team ([facility] Contact Info) Description 12/11/2024 Telephone PAV CC Hematology/BMT and Cellular Therapy Program [address] [phone] New Mckinney MD 800 [facility] [address] [place] [phone] Social History Tobacco Use Types Packs/Day Years [...] PM EDT Rn uploaded recent labs to [place] and rescheduled appointments to 12/30. RN returned call to patient with updated plan of care and schedule. documented in this encounter Plan of Treatment Upcoming Encounters Date Type Department Care Team (Late Contact Info) Description 01/27/2025 3:30 PM EDT Clinical Support [facility] CC Hematology/BMT and Cellular Therapy Program [address] [place] [address] 01/27/2025 4:00 PM EDT Office Visit PAV Hematology/BMT and Cellular Therapy Program [address] [phone] New Mckinney MD 800 [facility] [address] [place] [phone] documented as of this encounter Visit Diagnoses Not on filedocumented in this encounter Additional Health Concerns Assessment Noted Time A fall risk assessment has been complete d for the patient 09/30/2024 9:33 AM EDT A Body Mass Index follow-up plan has been documented for the patient 05/28/2024 1:52 PM EST documented as of this encounter Care Teams Acrylic Fabricator Relationship Specialty Start Date End Date Jevon Vazquez MD [address] [place] [address] #1 [address]1 [place] [address] PCP - General 03/23/22 documented as of this encounter
--- OUTSIDE RECORDS SUMMARY | 2025-01-23 09:03 | XMS_ITS | Encounter Summary ---
Author Organization Healthcare Address [address] [place] [address] Care Team Providers Care Breaker Up Machine Operator Name Role Phone Jevon Vazquez MD Primary Care Provider [phone] Encounter Details Date Type Department Care Team (Latest Contact Info) Description 01/20/2025 Travel Social History Tobacco Use Types Packs/Day [...] Hematology/BMT and Cellular Therapy Program [address] [phone] 01/27/2025 4:00 PM EDT Office Visit [facility] CC Hematology/BMT and Cellular Therapy Program [address] [phone] New Mckinney MD 800 [facility] [address] [place] [phone] documented as of this encounter Visit Diagnoses Not on filedocumented in this encounter Additional Health Concerns Assessment Noted Time A fall risk assessment has been complete d for the patient 09/30/2024 9:33 AM EDT A Body Mass Index follow-up plan has been documented for the patient 05/28/2024 1:52 PM EST documented as of this encounter Care Teams Breaker Up Machine Operator Relationship Specialty Start Date End Date Jevon Vazquez MD [address] [place] [address] #1 #1 [place] [address] PCP - General 03/23/22 documented as of this encounter
--- OUTSIDE RECORDS SUMMARY | 2025-01-23 09:03 | XMS_ITS | Encounter Summary ---
Author Organization Healthcare Address [address] [place] [address] Care Team Providers Care Edge Kitter Name Role Phone Jevon Vazquez MD Primary Care Provider [phone] Encounter Details Date Type Department Care Team [...] Hematology/BMT and Cellular Therapy Program [address] [phone] 01/27/2025 4:00 PM EDT Office Visit [facility] CC Hematology/BMT and Cellular Therapy Program [address] [phone] New Mckinney MD 800 [facility] [address] [place] [phone] documented as of this encounter Visit Diagnoses Not on filedocumented in this encounter Additional Health Concerns Assessment Noted Time A fall risk assessment has been complete d for the patient 09/30/2024 9:33 AM EDT A Body Mass Index follow-up plan has been documented for the patient 05/28/2024 1:52 PM EST documented as of this encounter Care Teams Edge Kitter Relationship Specialty Start Date End Date Jevon Vazquez MD [address] [place] [address] #1 #1 [place] [address] PCP - General 03/23/22 documented as of this encounter
--- OUTSIDE RECORDS SUMMARY | 2025-01-23 09:03 | XMS_ITS | Encounter Summary ---
Author Organization [facility] Address [address] [place] [address] Care Team Providers Care Surgical Nurse Practitioner Name Role Phone Jevon Vazquez MD Primary Care Provider [phone] Reason for Visit * Reason Comments Med Refill Encounter Details Date Type Department Care Team ([facility] Contact Info) Description 01/07/2025 Refill [facility] CC Hematology/BMT and Cellular Therapy Program [address] [phone] Zonia Hoffman, SWIMMING POOL MAINTENANCE 800 [facility] [address] [place] [phone] Social History Tobacco Use Types Packs/Day Years [...] Care Team ([facility] Contact Info) Description 01/27/2025 3:30 PM EDT Clinical Support [facility] CC Hematology/BMT and Cellular Therapy Program [address] [phone] 01/27/2025 4:00 PM EDT Office Visit [facility] CC Hematology/BMT and Cellular Therapy Program [address] [phone] New Mckinney MD 800 [facility] [address] [place] [phone] documented as of this encounter Visit Diagnoses Not on filedocumented in this encounter Additional Health Concerns Assessment Noted Time A fall risk assessment has been complete d for the patient 09/30/2024 9:33 AM EDT A Body Mass Index follow-up plan has been documented for the patient 05/28/2024 1:52 PM EST documented as of this encounter Care Teams Surgical Nurse Practitioner Relationship Specialty Start Date End Date Jevon Vazquez MD [address] [place] [address] #1 [address]1 [place] [address] PCP - General 03/23/22 documented as of this encounter
--- OUTSIDE RECORDS SUMMARY | 2025-01-23 09:03 | XMS_ITS | Encounter Summary ---
Author Organization Healthcare Address [address] [place] [address] Care Team Providers Care Furniture Assembly Supervisor Name Role Phone Jevon Vazquez MD Primary Care Provider [phone] Encounter Details Date Type Department Care Team [...] Hematology/BMT and Cellular Therapy Program [address] [phone] 01/27/2025 4:00 PM EDT Office Visit [facility] CC Hematology/BMT and Cellular Therapy Program [address] [phone] New Mckinney MD 800 [facility] [address] [place] [phone] documented as of this encounter Visit Diagnoses Not on filedocumented in this encounter Additional Health Concerns Assessment Noted Time A fall risk assessment has been complete d for the patient 09/30/2024 9:33 AM EDT A Body Mass Index follow-up plan has been documented for the patient 05/28/2024 1:52 PM EST documented as of this encounter Care Teams Furniture Assembly Supervisor Relationship Specialty Start Date End Date Jevon Vazquez MD [address] [place] [address] #1 #1 [place] [address] PCP - General 03/23/22 documented as of this encounter
--- OUTSIDE RECORDS SUMMARY | 2025-01-23 09:03 | XMS_ITS | Encounter Summary ---
Author Organization [facility] Address [address] [place] [address] Care Team Providers Care Gunstock Spray Unit Adjuster Name Role Phone Jevon Vazquez MD Primary Care Provider [phone] Reason for Referral * Genetic Testing (Routine) - Closed Specialty Diagnoses / Procedures Referred By Rebecca Referred To Contact Lab Diagnoses Myelodysplastic syndrome (CMS/HCC) Procedures Cytogenetics Testing, Oncology New Mckinney MD [address] [address] Phone: tel: fax: Referral ID Status Reason Start Date Expiration Date Visits Re quested Visits Authorized [id number] Closed 12/29/2024 06/30/2026 1 1 * Genetic Testing (Routine) - Authorized Specialty Diagnoses / Procedures [facility] Referred To Contact Lab Diagnoses Myelodysplastic syndrome (CMS/HCC) Procedures Leukemia/Lymphoma - Immunophenotyping by Flow Cytometry New Mckinney MD 800 [facility] [address] [address] Phone: tel: fax: Referral ID Status Reason Start Date Expiration Date V isits Requested Visits Authorized [id number] Authorized 12/29/2024 06/30/2026 1 1 * Genetic Testing (Routine) - Authorized Specialty Diagnoses / Procedures [facility] Referred To Contact Lab Diagnoses Myelodysplastic syndrome (CMS/HCC) Procedures Bone marrow exam New Mckinney MD 800 [facility] [address] [address] Phone: tel: fax: Referral ID Status Reason Start Date Expiration Date V isits Requested Visits Authorized [id number] Authorized 12/29/2024 06/30/2026 1 1 Encounter Details Date Type Department Care Team ([facility] Contact Info) Description 12/29/2024 Orders Only P[facility] CC Hematology/BMT and Cellular Therapy Program [address] [place] [address] New Mckinney MD 800 [facility] [address] [phone] Myelodysplastic syndrome (CMS/HCC) (Primary Dx) [...] Hematology/BMT and Cellular Therapy Program [address] [place] [address] 01/27/2025 4:00 PM EDT Office Visit P[facility] CC Hematology/BMT and Cellular Therapy Program [address] [place] [address] New Mckinney MD 800 [facility] [address] [phone] documented as of this encounter Results * [...] surface light chains 01/12/2025 4:19 PM EDT [facility] Disclaimer This test was developed and its performance characteristics determined by the Immuno-Molecular Pathology Laboratory at the [facility]. It has not been cleared [...] Final Result [facility] [address] [place] [address] * Bone marrow exam (01/12/2025 9:55 AM EDT) Case Report Bone Marrow Case: [id number] Authorizing Provider: New Mckinney MD Collected: 01/12/2025 0955 Ordering Location: [facility] Hematology/BMT and Received: 01/12/2025 Count includes the [facility] Cellular Therapy Program Pathologist: Asad Hartman MD Specimens: A) - Bone Marrow Aspirate, left B) - Bone Marrow Biopsy, left C) - Peripheral Blood for Bone Marrow 9:41 AM EDT [facility] Final Diagnosis PERIPHERAL BLOOD AND BONE MARROW, LEFT POSTERIOR ILIAC CREST, (PERIPHERAL SMEAR, ASPIRATE SMEAR, AND CORE BIOPSY): - HYPOCELLULAR BONE MARROW WITH MARKEDLY DECREASED MEGAKARYOCYTES, DECREASED MATURING GRANULOPOIESIS, APPROXIMATELY 7-10% VARIABLY DISTRIBUTED BLASTS AND MORE THAN 50% RING SIDEROBLASTS, SEE COMMENT. 9:41 AM EDT [facility] at 0941 EDT Comment The discrepancy between blasts percentage by morphologic assessment and flow cytometric analysis is due to erythroid precursors that constitute majority of bone marrow cellularity and are removed by flow cytometry. 9:41 AM EDT [facility] Clinical Information MDS 9:41 AM EDT [facility] CBC and [...] target cells. Platelets are decreased. 9:41 AM [facility] Bone Marrow Differential BONE MARROW DIFFERENTIAL: 300 cells Normal Patient Neutrophils 15-50 12 Metamyelocytes 4-19 0 Myelocytes 1-18 1 Promyelocytes 1-8 0 Blasts 0-2 7 Monocytes 0-5 7 Erythroid 16-38 61 Lymphocytes 3-24 7 Eosinophils 0-6 3 Basophils 0-2 0 Plasma cells 0-4 2 Other 9:41 AM [facility] Aspirate Smear The [...] than 50% of erythroid precursors. 9:41 AM [facility] Core Biopsy CELLULARITY: [...] BONE: Bony trabeculae are normal. 9:41 AM [facility] Special and Immunohistochemical [...] performed at the [facility], [address] [place] [address]. All tests reported here, except those addressing [...] false negativity on decalcified specimens. 9:41 AM [facility] Flow Cytometry Interpretation Flow cytometric analysis demonstrates approximately 27% population of myeloid blasts in this patient with history of myelodysplastic syndrome; expressing CD34, CD117, variable CD33, partial CD56, variable HLA-DR, partial dim CD7, CD38 and dim CD45 ([id number]). 9:41 AM [facility] Gross Description B. LEFT A single specimen is received in formalin labeled bone marrow biopsy left posterior iliac crest and consists of 1 piece(s) of red/white tissue measuring 0.9 cm in length 0.2 cm in diameter. The specimen is submitted in to Histology for decalcification and routine processing. Cold Time: <1m 9:41 AM [facility] Note: A resident was involved in the service. I attest I examined the relevant preparations for the specimens and confirmed the diagnosis or interpretation. 9:41 AM EDT [facility] Bone [...] MD LAB PATHOLOGY ORDERABLES Tracy stinson Result [facility] [address] [place] [address] documented in this encounter Visit Diagnoses Diagnosis Myelodysplastic syndrome (CMS/HCC)- Primary Myelodysplastic syndrome, unspecified documented in this encounter Additional Health Concerns Assessment Noted Time A fall risk assessment has been complete d for the patient 09/30/2024 9:33 AM EDT A Body Mass Index follow-up plan has been documented for the patient 05/28/2024 1:52 PM EST documented as of this encounter Care Teams Gunstock Spray Unit Adjuster Relationship Specialty Start Date End Date Jevon Vazquez MD [address] [place] [address] #1 #1 [place] [address] PCP - General 03/23/22 documented as of this encounter
--- OUTSIDE RECORDS SUMMARY | 2025-01-23 09:03 | XMS_ITS | Encounter Summary ---
Author Organization Healthcare Address [address] [place] [address] Care Team Providers Care Petroleum Terminal Plant Operator Name Role Phone Jevon Vazquez MD Primary Care Provider [phone] Encounter Details Date Type Department Care Team [...] Hematology/BMT and Cellular Therapy Program [address] [phone] 01/27/2025 4:00 PM EDT Office Visit [facility] Hematology/BMT and Cellular Therapy Program [address] [phone] New Mckinney MD 800 [facility] [address] [place] [phone] documented as of this encounter Visit Diagnoses Not on filedocumented in this encounter Additional Health Concerns Assessment Noted Time A fall risk assessment has been complete d for the patient 09/30/2024 9:33 AM EDT A Body Mass Index follow-up plan has been documented for the patient 05/28/2024 1:52 PM EST documented as of this encounter Care Teams Petroleum Terminal Plant Operator Relationship Specialty Start Date End Date Jevon Vazquez MD [address] [place] [address] #1 #1 [place] [address] PCP - General 03/23/22 documented as of this encounter
--- OUTSIDE RECORDS SUMMARY | 2025-01-23 09:03 | XMS_ITS | Clinical Summary ---
Author Organization [facility] Address [address] 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) 01/12/2025 9:30 AM EDT Clinical Support [facility] Hematology/BMT and Cellular Therapy Program [address] [place] [phone] 01/12/2025 Travel 01/07/2025 Travel 01/07/2025 Telephone [facility] Hematology/BMT and Cellular Therapy Program [address] [place] [phone] Sabine Clemons MD 01/07/2025 Refill [facility] Hematology/BMT and Cellular Therapy Program 750 [facility], [address] [place] [phone] Zonia Hoffman, TALENT ACQUISITION ASSOCIATE 01/05/2025 Travel 01/05/2025 Refill [facility] Hematology/BMT and Cellular Therapy Program 750 [facility], [address] [place] [phone] Zonia Hoffman, TALENT ACQUISITION ASSOCIATE 12/29/2024 Orders Only [facility] Hematology/BMT and Cellular Therapy Program 750 [facility], [address] [place] [phone] New Mckinney MD Myelodysplastic syndrome (CMS/HCC) (Primary Dx) 12/29/2024 Telephone [facility] Hematology/BMT and Cellular Therapy Program 750 [facility], [address] [place] [phone] Bibiana Sepulveda, TALENT ACQUISITION ASSOCIATE 12/28/2024 Travel 12/26/2024 Travel 12/25/2024 Travel 12/24/2024 Travel 12/23/2024 Travel 12/11/2024 Telephone [facility] Hematology/BMT and Cellular Therapy Program 750 [facility], [address] [place] [phone] New Mckinney MD 12/10/2024 Travel 12/09/2024 Refill [facility] Hematology/BMT and Cellular Therapy Program 750 [facility], [address] [place] [phone] Zonia Hoffman, TALENT ACQUISITION ASSOCIATE 11/27/2024 Telephone [facility] Hematology/BMT and Cellular Therapy Program 750 [facility], [address] [place] [phone] Zonia Hoffman, TALENT ACQUISITION ASSOCIATE 11/26/2024 Travel 11/25/2024 Travel 11/24/2024 Travel 11/23/2024 Travel 11/22/2024 Travel 11/13/2024 Orders Only [facility] Hematology/BMT and Cellular Therapy Program 750 [facility], [address] [place] [phone] 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 carbon sequestration plant manager 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) 11/12/2024 Travel 11/12/2024 Telephone [facility] Hematology/BMT and Cellular Therapy Program [address] [place] [phone] Zonia Hoffman, TALENT ACQUISITION ASSOCIATE 11/11/2024 Travel 11/10/2024 Travel 11/09/2024 Travel 11/08/2024 Travel 11/08/2024 Refill [facility] Hematology/BMT and Cellular Therapy Program [address] [place] [phone] New Mckinney MD 11/07/2024 Travel 10/29/2024 Refill [facility] Hematology/BMT and Cellular Therapy Program [address] [place] [phone] Zonia Hoffman, TALENT ACQUISITION ASSOCIATE 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); Immunosuppressed status (CMS/HCC) 10/28/2024 Telephone [facility] Hematology/BMT and Cellular Therapy Program [address] [place] [phone] Zonia Hoffman, TALENT ACQUISITION ASSOCIATE 10/27/2024 Telephone [facility] Hematology/BMT and Cellular Therapy Program [address] [place] [phone] Zonia Hoffman, TALENT ACQUISITION ASSOCIATE 10/27/2024 Travel 10/26/2024 Travel 10/24/2024 Travel 10/23/2024 Travel from Last 3 Months Immunizations Immunization [facility] Info) Description 01/27/2025 3:30 PM EDT Clinical Support [facility] Hematology/BMT and Cellular Therapy Program [address] [phone] 01/27/2025 4:00 PM EDT Office Visit [facility] Hematology/BMT and Cellular Therapy Program [address] [phone] New Mckinney MD 800 [facility] [address] [place] [phone] Health Maintenance Due Date Last Done Comments [...] 05/16/2023 03/21/2023 UKY-Bone Density Scan 07/25/2024 07/25/2022 [id number] Vaccine (4 - season) 2024 02/18/2021, 07/10/2020, [...] this topic Medical Devices Implanted Type Area Bunker Worker Device Identifier Shelf Expiration Date Model / Serial / Lot Port Clearvue Power 8fr - [id number] Implanted:Qty: 1 on 01/21/2024 [facility][id number] / / Procedures Procedure Name Priority Date/Time Associated Diagnosis Comments BIOPSY BONE MARROW Routine 01/12/2025 10 :00 AM EDT 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) BONE MARROW EXAM Routine 01/12/2025 9:55 AM EDT Myelodysplastic syndrome (CMS/HCC) CHROMOSOME KARYOTYPE, ONCOLOGY Routine 01/12/2025 9:55 AM EDT Myelodysplastic syndrome (CMS/HCC) CYTOGENETICS TESTING, ONCOLOGY Routine 01/12/2025 9:55 [...] Type Bone Marrow 01/20/2025 12:21 PM EDT [facility] Clinical Indication Myelodysplastic Syndrome 01/20/2025 12:21 PM EDT [facility] Specimen Adequacy Adequate 025 12:21 PM EDT [facility] Chromosome Analysis Result Giemsa-banded metaphase cells from unstimulated bone marrow cultures showed the following chromosome pattern: 43~44,X,-X,add(5)( q23),del(5)(q13q33 ),todd(7)ins?(7)(q1 1.2q11.2)t(7;12)(q 11.2;q13),-12,todd( 17)add(17)(p13.2)a dd(17)(q21)[16]/88 ,XX,idemx2[cp3]/46 ,XY[1] 01/20/2025 12:21 PM EDT [facility] Interpretation Abnormal female chromosome analysis. 95% of metaphase cells analyzed showed clonal abnormalities consistent with this patient's previous abnormal results (see [facility]-[id number]). Clinical correlation is recommended. Note: Per [employer] (CAP) requirement an additional karyotype was performed and charged due to the presence of clonal abnormalities. # cells counted = 20 # cells analyzed = 20 # cells karyotyped = 3 Band resolution: 400-450 01/20/2025 12:21 PM EDT [facility] Pathologist Signature Reviewed by: Corey Tejada 01/20/2025 12:21 PM EDT [facility] Bone Marrow Non-blood Collection / Unknown 01/12/2025 9:55 AM EDT 01/12/2025 12:37 PM EDT us New Mckinney MD LAB CYTOGENETICS ORDERABLES F inal Result [facility] [address] [place] [address] * Leukemia/Lymphoma - Immunophenotyping by Flow Cytometry (01/12/2025 9:55 AM EDT) Clinical Indication MDS 01/12/2025 4:19 PM EDT [facility] Flow Cytometry Interpretation APPROXIMATELY 27% MYELOID BLASTS EXPRESSING CD34, CD117, VARIABLE CD33, PARTIAL CD56, VARIABLE HLA-DR, PARTIAL DIM CD7, CD38 AND DIM CD45, SEE COMMENT, BBONE MARROW ASPIRATE. 01/12/2025 4:19 PM EDT [facility] Comments Specimen viability is 89%. [...] surface light chains 01/12/2025 4:19 PM EDT [facility] Disclaimer This test was developed [...] clinical laboratory testing. 01/12/2025 4:19 PM EDT [facility] Pathologist Signature Reviewed by: Asad Hartman MD 01/12/2025 4:19 PM EDT [facility] MRD Indicated Test Not Indicated 4:19 PM EDT [facility] Bone Marrow Specimen from bone marrow obtained by aspiration / Unknown Non-blood Collection / Unknown 01/12/2025 9:55 AM EDT 01/12/2025 1:48 PM EDT us New Mckinney MD LAB FLOW CYTOMETRY ORDERABLES Final Result [facility] [address] [place] [address] * Bone marrow exam (01/12/2025 9:55 AM EDT) Case Report Bone Marrow Case: [id number] Authorizing Provider: New Mckinney MD Collected: 01/12/2025 0955 Ordering Location: [facility] Hematology/BMT and Received: 01/12/2025 [facility] Cellular Therapy Program Pathologist: Asad Hartman MD Specimens: A) - Bone Marrow Aspirate, left B) - Bone Marrow Biopsy, left C) - Peripheral Blood for Bone Marrow 9:41 AM EDT [facility] Final Diagnosis PERIPHERAL BLOOD AND BONE MARROW, LEFT POSTERIOR ILIAC CREST, (PERIPHERAL SMEAR, ASPIRATE SMEAR, AND CORE BIOPSY): - HYPOCELLULAR BONE MARROW WITH MARKEDLY DECREASED MEGAKARYOCYTES, DECREASED MATURING GRANULOPOIESIS, APPROXIMATELY 7-10% VARIABLY DISTRIBUTED BLASTS AND MORE THAN 50% RING SIDEROBLASTS, SEE COMMENT. 9:41 AM EDT [facility] at 0941 EDT Comment The discrepancy between blasts percentage by morphologic assessment and flow cytometric analysis is due to erythroid precursors that constitute majority of bone marrow cellularity and are removed by flow cytometry. 9:41 AM EDT [facility] Clinical Information MDS 9:41 AM EDT [facility] CBC and Differential [...] target cells. Platelets are decreased. 9:41 AM [facility] Bone Marrow Differential BONE MARROW DIFFERENTIAL: 300 cells Normal Patient Neutrophils 15-50 12 Metamyelocytes 4-19 0 Myelocytes 1-18 1 Promyelocytes 1-8 0 Blasts 0-2 7 Monocytes 0-5 7 Erythroid 16-38 61 Lymphocytes 3-24 7 Eosinophils 0-6 3 Basophils 0-2 0 Plasma cells 0-4 2 Other 9:41 AM [facility] Aspirate Smear The [...] than 50% of erythroid precursors. 9:41 AM [facility] Core Biopsy CELLULARITY: Variably cellular bone marrow [...] BONE: Bony trabeculae are normal. 9:41 AM [facility] Special and Immunohistochemical Stains Immunohistochemica l stains [...] at the [facility], [address] [place] [address]. All tests reported here, except those addressing [...] false negativity on decalcified specimens. 9:41 AM T [facility] Flow Cytometry Interpretation Flow cytometric analysis demonstrates approximately 27% population of myeloid blasts in this patient with history of myelodysplastic syndrome; expressing CD34, CD117, variable CD33, partial CD56, variable HLA-DR, partial dim CD7, CD38 and dim CD45 ([id number]). 9:41 AM T [facility] Gross Description B. LEFT A single specimen is received in formalin labeled bone marrow biopsy left posterior iliac crest and consists of 1 piece(s) of red/white tissue measuring 0.9 cm in length 0.2 cm in diameter. The specimen is submitted in to Histology for decalcification and routine processing. Cold Time: <1m 9:41 AM [facility] Note: A resident was involved in the service. I attest I examined the relevant preparations for the specimens and confirmed the diagnosis or interpretation. 9:41 AM [facility] Bone Marrow Peripheral [...] EDT New Mckinney MD LAB PATHOLOGY ORDERABLES Tracy milad Result [facility] [address] [place] [address] * (ABNORMAL) CBC and Differential (01/12/2025 9:15 [...] ORDERABLES Final Re sult [facility] [address] [place] [address] * (ABNORMAL) Comprehensive Metabolic Panel, Plasma (01/12/2025 9:15 AM EDT) Glucose, Plasma 121(H) 74 - 99 mg/dL 01/12/2025 10:02 AM EDT [facility] BUN, Plasma 24(H) 8 - 23 mg/dL 01/12/2025 10:02 AM EDT [facility] Creatinine, Plasma 1.19(H) 0.60 - 1.10 mg/dL 01/12/2025 10:02 AM EDT [facility] BUN/Creatinine Ratio 20 01/12/2025 10:02 AM EDT [facility] Sodium, Plasma 138 136 - 145 mmol/L 01/12/2025 10:02 AM EDT [facility] Potassium, Plasma 3.9 3.6 - 4.9 mmol/L 01/12/2025 10:02 AM EDT [facility] Chloride, Plasma 105 97 - 107 mmol/L 01/12/2025 10:02 AM EDT [facility] CO2, Plasma 21(L) 22 - 29 mmol/L 01/12/2025 10:02 AM EDT [facility] Anion Gap 12 6 - 16 mmol/L 01/12/2025 10:02 AM EDT [facility] Total Calcium, Plasma 9.7 8.9 - 10.2 mg/dL 01/12/2025 10:02 AM EDT [facility] Total Protein 6.1(L) 6.3 - 7.9 g/dL 01/12/2025 10:02 AM EDT [facility] Albumin, Plasma 3.9 3.5 - 5.2 g/dL 01/12/2025 10:02 AM EDT [facility] AST, Plasma 28 10 - 35 U/L 01/12/2025 10:02 AM EDT [facility] ALT, Plasma 12 10 - 35 U/L 01/12/2025 10:02 AM EDT [facility] Alkaline Phosphatase, Plasma 43(L) 46 - 142 U/L 01/12/2025 10:02 AM EDT [facility] Total Bilirubin, Plasma 0.5 0.2 - 1.1 mg/dL 01/12/2025 10:02 AM EDT [facility] eGFRcr 48.1 mL/min/1.7 3m*2 01/12/2025 10:02 AM EDT [facility] Comment:Reported eGFRcr in m L/min/1.73m2 is based the CKD-EPI 2020 equation that does not use a race coefficient. Blood Blood sample taken from central line / Unknown (Port) Long-term Catheter / Unknown 01/12/2025 9:15 AM EDT 01/12/2025 9:33 AM EDT New Mckinney MD LAB BLOOD ORDERABLES Final Re sult Performing Organization Address City/[facility]/ZIP Co de Phone Number [facility] [address] [place] [address] * Hepatitis C Antibody w/Reflex to HCV Quant PCR (01/07/2024 8:42 AM EDT) Hepatitis C Antibody Negative Negative 01/07/2024 10:13 AM EDT [facility] Blood Venous blood specimen / Unknown Venipuncture / Unknown 01/07/2024 8:42 AM EDT 01/07/2024 9:25 AM EDT New Mckinney MD LAB BLOOD ORDERABLES Final Re sult Performing Organization Address City/[facility]/ZIP Co de Phone Number [facility] [address] [place] [address] from Last 3 Months or Most Recently Relevant to Health Maintenance Insurance MEDICARE [facility] Care Teams Hide Cleaner Relationship Specialty Start Date End Date Jevon Vazquez MD [address] [place] [address] #1 #1 [place] [id number] PCP - General 03/23/22
--- OUTSIDE RECORDS SUMMARY | 2025-01-23 09:03 | XMS_ITS | Encounter Summary ---
Author Organization [facility] Address [address] [place] [address] Care Team Providers Care Bleacher Lard Name Role Phone Jevon Vazquez MD Primary Care Provider [phone] Reason for Visit * Reason Comments Med Refill Encounter Details Date Type Department Care Team ([facility] Contact Info) Description 01/05/2025 Refill [facility] Hematology/BMT and Cellular Therapy Program [address] [phone] Zonia Hoffman, TEAM ASSISTANT 800 [facility] [address] [place] [phone] Social History Tobacco Use Types Packs/Day Years [...] Team ([facility] Contact Info) Description 01/27/2025 3:30 PM EDT Clinical Support [facility] Hematology/BMT and Cellular Therapy Program [address] [phone] 01/27/2025 4:00 PM EDT Office Visit [facility] Hematology/BMT and Cellular Therapy Program [address] [phone] New Mckinney MD 800 [facility] [address] [place] [phone] documented as of this encounter Visit Diagnoses Not on filedocumented in this encounter Additional Health Concerns Assessment Noted Time A fall risk assessment has been complete d for the patient 09/30/2024 9:33 AM EDT A Body Mass Index follow-up plan has been documented for the patient 05/28/2024 1:52 PM EST documented as of this encounter Care Teams Bleacher Lard Relationship Specialty Start Date End Date Jevon Vazquez MD [address] [place] [address] #1 [address] [place] [address] PCP - General 03/23/22 documented as of this encounter
--- OUTSIDE RECORDS SUMMARY | 2025-01-23 09:03 | XMS_ITS | Encounter Summary ---
Author Organization Healthcare Address [address] [place] [address] Care Team Providers Care Elevator Service Technician Name Role Phone Jevon Vazquez MD Primary Care Provider [phone] Encounter Details Date Type Department Care Team [...] Hematology/BMT and Cellular Therapy Program [address] [phone] 01/27/2025 4:00 PM EDT Office Visit [facility] Hematology/BMT and Cellular Therapy Program [address] [phone] New Mckinney MD 800 [facility] [address] [place] [phone] documented as of this encounter Visit Diagnoses Not on filedocumented in this encounter Additional Health Concerns Assessment Noted Time A fall risk assessment has been complete d for the patient 09/30/2024 9:33 AM EDT A Body Mass Index follow-up plan has been documented for the patient 05/28/2024 1:52 PM EST documented as of this encounter Care Teams Elevator Service Technician Relationship Specialty Start Date End Date Jevon Vazquez MD [address] [place] [address] #1 [address]1 [place] [phone] PCP - General 03/23/22 documented as of this encounter
--- OUTSIDE RECORDS SUMMARY | 2025-01-23 09:03 | XMS_ITS | Encounter Summary ---
Author Organization Healthcare Address [address] [place] [address] Care Team Providers Care Seaman Officer Name Role Phone Jevon Vazquez MD Primary Care Provider [phone] Encounter Details Date Type Department Care Team [...] Hematology/BMT and Cellular Therapy Program [address] [phone] 01/27/2025 4:00 PM EDT Office Visit [facility] Hematology/BMT and Cellular Therapy Program [address] [phone] New Mckinney MD 800 [facility] [address] [place] [phone] documented as of this encounter Visit Diagnoses Not on filedocumented in this encounter Additional Health Concerns Assessment Noted Time A fall risk assessment has been complete d for the patient 09/30/2024 9:33 AM EDT A Body Mass Index follow-up plan has been documented for the patient 05/28/2024 1:52 PM EST documented as of this encounter Care Teams Seaman Officer Relationship Specialty Start Date End Date Jevon Vazquez MD [address] [place] [address] #1 [address]1 [place] [address] PCP - General 03/23/22 documented as of this encounter
--- OUTSIDE RECORDS SUMMARY | 2025-01-23 09:03 | XMS_ITS | Encounter Summary ---
Author Organization Healthcare Address [address] [place] [address] Care Team Providers Care Journeyman Carpenter Name Role Phone Jevon Vazquez MD Primary Care Provider [phone] Encounter Details Date Type Department Care Team [...] Hematology/BMT and Cellular Therapy Program [address] [phone] 01/27/2025 4:00 PM EDT Office Visit [facility] Hematology/BMT and Cellular Therapy Program [address] [phone] New Mckinney MD 800 [facility] [address] [place] [phone] documented as of this encounter Visit Diagnoses Not on filedocumented in this encounter Additional Health Concerns Assessment Noted Time A fall risk assessment has been complete d for the patient 09/30/2024 9:33 AM EDT A Body Mass Index follow-up plan has been documented for the patient 05/28/2024 1:52 PM EST documented as of this encounter Care Teams Journeyman Carpenter Relationship Specialty Start Date End Date Jevon Vazquez MD [address] [place] [address] #1 #1 [place] [address] PCP - General 03/23/22 documented as of this encounter
[2025-01-23] MEDS: 0.9 % SODIUM CHLORIDE 250 ML IV (09:22)
[2025-01-23] MEDS: SODIUM CHLORIDE 0.9% 10ML FLUSH SYRINGE 10 ML IV (09:22)
== END 2025-01-23 23:59 | disposition home or self-care (01) ==
LOC: INF 09:01
PROVIDERS: PCP Family Medicine; Visit Provider Internal Medicine Medical Oncology
DX: C92.00 Acute myeloblastic leukemia, not having achieved remission (principal)
CPT/HCPCS: 36430; J1642; J7050; P9016; P9034

== ENCOUNTER 2025-01-26 09:02 | Outpatient (CLI) | payer MEDICARE, BC, SELFPAY ==
--- OUTSIDE RECORDS SUMMARY | 2025-01-12 09:30 | XMS_ITS | Encounter Summary ---
Author Organization Healthcare Address [address] [place] [address] Care Team Providers Care Numerical Control Lathe Operator Name Role Phone Jevon Vazquez MD Primary Care Provider [phone] Reason for Visit * Reason Comments Labs Encounter Details Date Type Department Care Team ([facility] Contact Info) Description 01/12/2025 9:30 AM EDT Clinical Support [facility] Hematology/BMT and Cellular Therapy Program [address] [phone] Social History Tobacco Use Types Packs/Day Years [...] Care Team ([facility] Contact Info) Description 01/27/2025 3:30 PM EDT Clinical Support [facility] Hematology/BMT and Cellular Therapy Program [address] [phone] 01/27/2025 4:00 PM EDT Office Visit [facility] Hematology/BMT and Cellular Therapy Program [address] [phone] New Mckinney MD 800 [facility] [address] [place] [phone] documented as of this encounter Visit Diagnoses Not on filedocumented in this encounter Additional Health Concerns Assessment Noted Time A fall risk assessment has been complete d for the patient 09/30/2024 9:33 AM EDT A Body Mass Index follow-up plan has been documented for the patient 05/28/2024 1:52 PM EST documented as of this encounter Care Teams Numerical Control Lathe Operator Relationship Specialty Start Date End Date Jevon Vazquez MD [address] [place] [address] #1 #1 [place] [phone] PCP - General 03/23/22 documented as of this encounter
--- OUTSIDE RECORDS SUMMARY | 2025-01-12 10:00 | XMS_ITS | Encounter Summary ---
Author Organization [facility] Address [address] [place] [address] Care Team Providers Care Membership Manager Name Role Phone Jevon Vazquez MD Primary Care Provider [phone] Reason for Visit * Genetic Testing (Routine) - Authorized Specialty Diagnoses / Procedures Referred By Rebecca barron Referred To Contact Lab Diagnoses Myelodysplastic syndrome (CMS/HCC) Procedures Leukemia/Lymphoma - Immunophenotyping by Flow Cytometry New Mckinney MD 800 [facility] Cancer [address] [address] Phone: tel: fax: Referral ID Status Reason Start Date Expiration Date V isits Requested Visits Authorized [id number] Authorized 12/29/2024 06/30/2026 1 1 Encounter Details Date Type Department Care Team (Latest Contact Info) Description 01/12/2025 10:00 AM EDT Procedure Visit [facility] Hematology/BMT and Cellular Therapy Program [address] [phone] Rebecca Barrientos PA 800 [facility] Cancer [address] [address] Myelodysplastic syndrome (CMS/HCC); Acute myeloid [...] position. There were no complications. DANIELA Davis [facility] CC HEMATOLOGY/BMT AND CELLULAR THERAPY PROGRAM 800 [facility] [phone] / documented in this encounter Plan of Treatment Upcoming Encounters Date Type Department Care Team ([facility] st Contact Info) Description 01/27/2025 3:30 PM EDT Clinical Support [facility] Hematology/BMT and Cellular Therapy Program [address] [phone] 01/27/2025 4:00 PM EDT Office Visit [facility] Hematology/BMT and Cellular Therapy Program [address] [phone] New Mckinney MD 800 [facility] [address] [place] [phone] documented as of this encounter Procedures Procedure [...] with this patient's previous abnormal results (see [id number]). Clinical correlation is recommended. Note: Per College [...] Result [facility] [address] [place] [address] * Leukemia/Lymphoma - Immunophenotyping by Flow Cytometry [...] 01/12/2025 4:19 PM EDT [facility] Disclaimer [...] 01/12/2025 4:19 PM EDT [facility] Pathologist Signature Reviewed by: Asad Hartman MD 01/12/2025 4:19 PM EDT [facility] MRD Indicated Test Not Indicated 4:19 PM EDT [facility] Bone Marrow Specimen from bone marrow obtained by aspiration / Unknown Non-blood Collection / Unknown 01/12/2025 9:55 AM EDT 01/12/2025 1:48 PM EDT us New Mckinney MD LAB FLOW CYTOMETRY ORDERABLES Final Result [facility] [address] [place] [address] * Bone marrow exam (01/12/2025 9:55 AM EDT) Case Report Bone Marrow Case: [id number] Authorizing Provider: New Mckinney MD Collected: 01/12/2025 0955 Ordering Location: [facility] Hematology/BMT and Received: 01/12/2025 1143 [...] patient's previous abnormal results (see [facility]-[id number]). 5:16 PM EDT [facility] [...] 93 (Ref range: 79 - 98 fL) DIFFERENTIAL:9/29/ 2025: Neutrophils % 19; Lymphocytes % 64; Monocytes % 15; Basophils % 0; Eosinophils % 2; Immature Granulocytes % 0 Review of the peripheral blood smear shows marked leukopenia with severe neutropenia. Definitive circulating blasts are not identified. Red blood cells demonstrate moderate normocytic anemia with few target cells. Platelets are decreased. 5:16 PM T [facility] [...] 50% of erythroid precursors. 5:16 PM T [facility] Core Biopsy CELLULARITY: Variably cellular bone [...] the [facility], [address] [place] [address]. All tests reported here, except those addressing [...] partial dim CD7, CD38 and dim CD45 ([id number]). 5:16 PM T [facility] Gross Description B. LEFT A single specimen is received in formalin labeled bone marrow biopsy left posterior iliac crest and consists of 1 piece(s) of red/white tissue measuring 0.9 cm in length 0.2 cm in diameter. The specimen is submitted in to Histology for decalcification and routine processing. Cold Time: <1m 5:16 PM T [facility] Note: [...] ed Result - Final [facility] [address] [place] [address] * (ABNORMAL) CBC and Differential (01/12/2025 9:15 AM EDT) WBC Count 1.31(L) 3.70 - 10.30 10*3/uL LAB HEMATOLOGY METHOD 01/12/2025 9:58 AM EDT [facility] RBC Count 2.70(L) 3.90 - 5.20 10*6/uL LAB HEMATOLOGY METHOD 01/12/2025 9:58 AM EDT [facility] HGB 8.4(L) 11.2 - 15.7 g/dL LAB HEMATOLOGY METHOD 01/12/2025 9:58 AM EDT [facility] HCT 25.0(L) 34.0 - 45.0 % LAB HEMATOLOGY METHOD 01/12/2025 9:58 AM EDT [facility] Platelet Count 31(L) 155 - 369 10*3/uL LAB HEMATOLOGY METHOD 01/12/2025 9:58 AM EDT [facility] MCV 93 79 - 98 fL LAB HEMATOLOGY METHOD 01/12/2025 9:58 AM EDT [facility] MCH 31.1 26.0 - 32.0 pg LAB HEMATOLOGY METHOD 01/12/2025 9:58 AM EDT [facility] MCHC 33.6 30.7 - 35.5 g/dL LAB HEMATOLOGY METHOD 01/12/2025 9:58 AM EDT [facility] RDW 20.0(H) 11.5 - 14.5 % LAB HEMATOLOGY METHOD 01/12/2025 9:58 AM EDT [facility] MPV 8.8 8.8 - 12.5 fL LAB HEMATOLOGY METHOD 01/12/2025 9:58 AM EDT [facility] nRBC 3.1(H) <=0.0 per 100 WBCs LAB HEMATOLOGY METHOD 01/12/2025 9:58 AM EDT [facility] Differential Type Automated LAB HEMATOLOGY METHOD 01/12/2025 9:58 AM EDT [facility] Neutrophils % 19 % LAB HEMATOLOGY METHOD 01/12/2025 9:58 AM EDT [facility] Lymphocytes % 64 % LAB HEMATOLOGY METHOD 01/12/2025 9:58 AM EDT [facility] Monocytes % 15 % LAB HEMATOLOGY METHOD 01/12/2025 9:58 AM EDT [facility] Eosinophils % 2 % LAB HEMATOLOGY METHOD 01/12/2025 9:58 AM EDT [facility] Basophils % 0 % LAB HEMATOLOGY METHOD 01/12/2025 9:58 AM EDT [facility] Immature Granulocytes % 0 % LAB HEMATOLOGY METHOD 01/12/2025 9:58 AM EDT [facility] Neutrophils Absolute 0.25(LL) 1.60 - 6.10 10*3/uL LAB HEMATOLOGY METHOD 01/12/2025 9:58 AM EDT [facility] Lymphocytes Absolute 0.84(L) 1.20 - 3.90 10*3/uL LAB HEMATOLOGY METHOD 01/12/2025 9:58 AM EDT [facility] Monocytes Absolute 0.20(L) 0.30 - 0.90 10*3/uL LAB HEMATOLOGY METHOD 01/12/2025 9:58 AM EDT [facility] Eosinophils Absolute 0.02 0.00 - 0.50 10*3/uL LAB HEMATOLOGY METHOD 01/12/2025 9:58 AM EDT [facility] Basophils Absolute 0.00 0.00 - 0.10 10*3/uL LAB HEMATOLOGY METHOD 01/12/2025 9:58 AM EDT [facility] Immature Granulocytes Absolute 0.00 0.00 - 0.06 10*3/uL LAB HEMATOLOGY METHOD 01/12/2025 9:58 AM EDT [facility] Blood Blood sample taken from central line / Unknown (Port) Long-term Catheter / Unknown 01/12/2025 9:15 AM EDT 01/12/2025 9:31 AM EDT [facility] - 01/12/2025 9:58 AM EDT Therapeutic decision making should be based on absolute values, rather than percentages. 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
--- OUTSIDE RECORDS SUMMARY | 2025-01-26 09:08 | XMS_ITS | Encounter Summary ---
Author Organization [facility] Address [address] [place] [address] Care Team Providers Care Filter Press Pumper Name Role Phone Jevon Vazquez MD Primary Care Provider Reason for Visit * Reason Comments Med Refill Encounter Details Date Type Department Care Team ([facility] Contact Info) Description 01/30/2024 Refill [facility] Hematology/BMT and Cellular Therapy Program [address] [place] [phone] New Mckinney MD 800 [facility] [address] [place] [phone] Social History Tobacco Use Types Packs/Day Years [...] ([facility] Contact Info) Description 01/27/2025 3:30 PM EDT Clinical Support [facility] Hematology/BMT and Cellular Therapy Program [address] [place] [phone] 01/27/2025 4:00 PM EDT Office Visit [facility] Hematology/BMT and Cellular Therapy Program [address] [phone] New Mckinney MD 800 [facility] [address] [place] [phone] documented as of this encounter Visit Diagnoses Not on filedocumented in this encounter Additional Health Concerns Assessment Noted Time A fall risk assessment has been complete d for the patient 01/11/2024 9:16 AM EDT A Body Mass Index follow-up plan has been documented for the patient 01/21/2024 6:16 AM EDT documented as of this encounter Care Teams Filter Press Pumper Relationship Specialty Start Date End Date Jevon Vazquez MD [address] [place] [address] #1 [address]1 [place] [address] PCP - General 03/23/22 documented as of this encounter
--- OUTSIDE RECORDS SUMMARY | 2025-01-26 09:08 | XMS_ITS | Encounter Summary ---
Author Organization Healthcare Address [address] [place] [address] Care Team Providers Care Washing Machine Loader And Puller Name Role Phone Jevon Vazquez MD Primary Care Provider [phone] Encounter Details Date Type Department Care Team ([facility] Contact Info) Description 12/11/2024 Telephone [facility] Hematology/BMT and Cellular Therapy Program [address] [phone] New Mckinney MD 800 [facility] [address] [place] [phone] Social History Tobacco Use Types Packs/Day Years [...] PM EDT Rn uploaded recent labs to [facility] and rescheduled appointments to 12/30. RN returned call to patient with updated plan of care and schedule. documented in this encounter Plan of Treatment Upcoming Encounters Date Type Department Care Team (Late Contact Info) Description 01/27/2025 3:30 PM EDT Clinical Support [facility] Hematology/BMT and Cellular Therapy Program [address] [place] [phone] 01/27/2025 4:00 PM EDT Office Visit PAV Hematology/BMT and Cellular Therapy Program [address] [phone] New Mckinney MD 800 [facility] [address] [place] [phone] documented as of this encounter Visit Diagnoses Not on filedocumented in this encounter Additional Health Concerns Assessment Noted Time A fall risk assessment has been complete d for the patient 09/30/2024 9:33 AM EDT A Body Mass Index follow-up plan has been documented for the patient 05/28/2024 1:52 PM EST documented as of this encounter Care Teams Washing Machine Loader And Puller Relationship Specialty Start Date End Date Jevon Vazquez MD [address] [place] [address] #1 #1 [place] [phone] PCP - General 03/23/22 documented as of this encounter
--- OUTSIDE RECORDS SUMMARY | 2025-01-26 09:09 | XMS_ITS | Encounter Summary ---
Author Organization Healthcare Address [address] [place] [address] Care Team Providers Care Transport Truck Driver Name Role Phone Jevon Vazquez MD Primary Care Provider [phone] Encounter Details Date Type Department Care Team [...] Cellular Therapy Program [address] [phone] 01/27/2025 4:00 PM EDT Office Visit [facility] Hematology/BMT and Cellular Therapy Program [address] [phone] New Mckinney MD 800 [facility] [address] [place] [phone] documented as of this encounter Visit Diagnoses Not on filedocumented in this encounter Additional Health Concerns Assessment Noted Time A fall risk assessment has been complete d for the patient 09/30/2024 9:33 AM EDT A Body Mass Index follow-up plan has been documented for the patient 05/28/2024 1:52 PM EST documented as of this encounter Care Teams Transport Truck Driver Relationship Specialty Start Date End Date Jevon Vazquez MD [address] [place] [address] #1 #1 [place] [address] PCP - General 03/23/22 documented as of this encounter
--- OUTSIDE RECORDS SUMMARY | 2025-01-26 09:09 | XMS_ITS | Encounter Summary ---
Author Organization Healthcare Address [address] [place] [address] Care Team Providers Care Miner Placer Name Role Phone Jevon Vazquez MD Primary Care Provider [phone] Encounter Details Date Type Department Care Team [...] Hematology/BMT and Cellular Therapy Program [address] [phone] 01/27/2025 4:00 PM EDT Office Visit [facility] Hematology/BMT and Cellular Therapy Program [address] [phone] New Mckinney MD 800 [facility] [address] [place] [phone] documented as of this encounter Visit Diagnoses Not on filedocumented in this encounter Additional Health Concerns Assessment Noted Time A fall risk assessment has been complete d for the patient 09/30/2024 9:33 AM EDT A Body Mass Index follow-up plan has been documented for the patient 05/28/2024 1:52 PM EST documented as of this encounter Care Teams Miner Placer Relationship Specialty Start Date End Date Jevon Vazquez MD [address] [place] [address] #1 #1 [place] [address] PCP - General 03/23/22 documented as of this encounter
--- OUTSIDE RECORDS SUMMARY | 2025-01-26 09:09 | XMS_ITS ---
Author Organization [facility] Address [address] [place] [address] Care Team Providers Care Sex Offender Treatment Professional Name Role Phone Jevon Vazquez MD Primary Care Provider [phone] Active Problems Problem Noted Date Diagnosed Date [...]
--- OUTSIDE RECORDS SUMMARY | 2025-01-26 09:09 | XMS_ITS | Encounter Summary ---
Author Organization [facility] Address [address] [place] [address] Care Team Providers Care Cryptographic Machine Operator Name Role Phone Jevon Vazquez MD Primary Care Provider [phone] Encounter Details Date Type Department Care Team ([facility] Contact Info) Description 01/07/2025 Telephone [facility] Hematology/BMT and Cellular Therapy Program [address] [phone] Sabine Clemons MD 800 [facility] [address] [place] [phone] Social History Tobacco Use Types Packs/Day Years [...] Encounters Date Type Department Care Team ([facility] Contact Info) Description 01/27/2025 3:30 PM EDT Clinical Support [facility] Hematology/BMT and Cellular Therapy Program [address] [phone] 01/27/2025 4:00 PM EDT Office Visit [facility] Hematology/BMT and Cellular Therapy Program [address] [phone] New Mckinney MD 800 [facility] [address] [place] [address] documented as of this encounter Visit Diagnoses Not on filedocumented in this encounter Additional Health Concerns Assessment Noted Time A fall risk assessment has been complete d for the patient 09/30/2024 9:33 AM EDT A Body Mass Index follow-up plan has been documented for the patient 05/28/2024 1:52 PM EST documented as of this encounter Care Teams Cryptographic Machine Operator Relationship Specialty Start Date End Date Jevon Vazquez MD [address] [place] [address] #1 #1 [place] [address] PCP - General 03/23/22 documented as of this encounter
--- OUTSIDE RECORDS SUMMARY | 2025-01-26 09:09 | XMS_ITS | Encounter Summary ---
Author Organization [facility] Address [address] [place] [address] Care Team Providers Care Faculty Criminal Justice Name Role Phone Jevon Vazquez MD Primary Care Provider Reason for Visit * Reason Comments Med Refill Encounter Details Date Type Department Care Team ([facility] Contact Info) Description 01/07/2025 Refill [facility] Hematology/BMT and Cellular Therapy Program [address] [phone] Zonia Hoffman, INFANT AND TODDLER TEACHER 800 [facility] [address] [place] [phone] Social History Tobacco Use Types Packs/Day Years [...] ([facility] Contact Info) Description 01/27/2025 3:30 PM EDT Clinical Support [facility] Hematology/BMT and Cellular Therapy Program [address] [phone] 01/27/2025 4:00 PM EDT Office Visit [facility] Hematology/BMT and Cellular Therapy Program [address] [phone] New Mckinney MD 800 [facility] [address] [place] [phone] documented as of this encounter Visit Diagnoses Not on filedocumented in this encounter Additional Health Concerns Assessment Noted Time A fall risk assessment has been complete d for the patient 09/30/2024 9:33 AM EDT A Body Mass Index follow-up plan has been documented for the patient 05/28/2024 1:52 PM EST documented as of this encounter Care Teams Faculty Criminal Justice Relationship Specialty Start Date End Date Jevon Vazquez MD [address] [place] [address] #1 #1 [place] [address] PCP - General 03/23/22 documented as of this encounter
--- OUTSIDE RECORDS SUMMARY | 2025-01-26 09:09 | XMS_ITS | Encounter Summary ---
Author Organization Healthcare Address [address] [place] [address] Care Team Providers Care Air Defense Control Officer Name Role Phone Jevon Vazquez MD Primary Care Provider [phone] Encounter Details Date Type Department Care Team [...] Hematology/BMT and Cellular Therapy Program [address] [phone] 01/27/2025 4:00 PM EDT Office Visit [facility] Hematology/BMT and Cellular Therapy Program [address] [phone] New Mckinney MD 800 [facility] [address] [place] [phone] documented as of this encounter Visit Diagnoses Not on filedocumented in this encounter Additional Health Concerns Assessment Noted Time A fall risk assessment has been complete d for the patient 09/30/2024 9:33 AM EDT A Body Mass Index follow-up plan has been documented for the patient 05/28/2024 1:52 PM EST documented as of this encounter Care Teams Air Defense Control Officer Relationship Specialty Start Date End Date Jevon Vazquez MD [address] [place] [address] #1 #1 [place] [address] PCP - General 03/23/22 documented as of this encounter
--- OUTSIDE RECORDS SUMMARY | 2025-01-26 09:09 | XMS_ITS | Encounter Summary ---
Author Organization Healthcare Address [address] [place] [address] Care Team Providers Care Dynamics Ax Technical Architect Name Role Phone Jevon Vazquez MD Primary Care Provider [phone] Encounter Details Date Type Department Care Team (Late Contact Info) Description 01/16/2025 Telephone [facility] Hematology/BMT and Cellular Therapy Program [address] [place] [address] [place] [address] Daxa Elliott RN [facility] Social [...] CC Hematology/BMT and Cellular Therapy Program 750 [facility] [place] [address] 01/27/2025 4:00 PM EDT Office Visit [facility] Hematology/BMT and Cellular Therapy Program 750 [facility] [place] [address] New Mckinney MD 800 [facility] [address] [place] [phone] documented as of this encounter Visit Diagnoses Not on filedocumented in this encounter Additional Health Concerns Assessment Noted Time A fall risk assessment has been complete d for the patient 09/30/2024 9:33 AM EDT A Body Mass Index follow-up plan has been documented for the patient 05/28/2024 1:52 PM EST documented as of this encounter Care Teams Dynamics Ax Technical Architect Relationship Specialty Start Date End Date Jevon Vazquez MD [address] [place] [address] #1 #1 [place] [address] PCP - General 03/23/22 documented as of this encounter
--- OUTSIDE RECORDS SUMMARY | 2025-01-26 09:09 | XMS_ITS | Encounter Summary ---
Author Organization Healthcare Address [address] [place] [address] Care Team Providers Care Soil Checker Name Role Phone Jevon Vazquez MD Primary Care Provider [phone] Encounter Details Date Type Department Care Team [...] Hematology/BMT and Cellular Therapy Program [address] [phone] 01/27/2025 4:00 PM EDT Office Visit [facility] Hematology/BMT and Cellular Therapy Program [address] [phone] New Mckinney MD 800 [facility] [address] [place] [phone] documented as of this encounter Visit Diagnoses Not on filedocumented in this encounter Additional Health Concerns Assessment Noted Time A fall risk assessment has been complete d for the patient 09/30/2024 9:33 AM EDT A Body Mass Index follow-up plan has been documented for the patient 05/28/2024 1:52 PM EST documented as of this encounter Care Teams Soil Checker Relationship Specialty Start Date End Date Jevon Vazquez MD [address] [place] [address] #1 #1 [place] [address] PCP - General 03/23/22 documented as of this encounter
--- OUTSIDE RECORDS SUMMARY | 2025-01-26 09:09 | XMS_ITS | Encounter Summary ---
Author Organization Healthcare Address [address] [place] [address] Care Team Providers Care Endbander Name Role Phone Jevon Vazquez MD Primary Care Provider [phone] Encounter Details Date Type Department Care Team ([facility] Contact Info) Description 12/29/2024 Telephone [facility] Hematology/BMT and Cellular Therapy Program [address] [phone] Bibiana Sepulveda, BICYCLE II ASSEMBLER 800 [facility] [address] [place] [phone] Social History Tobacco Use Types Packs/Day Years [...] wants to repeat BMBx. She verbalizes understanding. Gamb Cutter made aware. documented in this encounter Plan of Treatment Upcoming Encounters Date Type Department Care Team (Late Contact Info) Description 01/27/2025 3:30 PM EDT Clinical Support [facility] Hematology/BMT and Cellular Therapy Program [address] [place] [address] 01/27/2025 4:00 PM EDT Office Visit [facility] Hematology/BMT and Cellular Therapy Program [address] [phone] New Mckinney MD 800 [facility] [address] [place] [phone] documented as of this encounter Visit Diagnoses Not on filedocumented in this encounter Additional Health Concerns Assessment Noted Time A fall risk assessment has been complete d for the patient 09/30/2024 9:33 AM EDT A Body Mass Index follow-up plan has been documented for the patient 05/28/2024 1:52 PM EST documented as of this encounter Care Teams Endbander Relationship Specialty Start Date End Date Jevon Vazquez MD [address] [place] [address] #1 #1 [place] [address] PCP - General 03/23/22 documented as of this encounter
--- OUTSIDE RECORDS SUMMARY | 2025-01-26 09:09 | XMS_ITS | Encounter Summary ---
Author Organization Healthcare Address [address] [place] [address] Care Team Providers Care Product Builder Name Role Phone Jevon Vazquez MD Primary Care Provider [phone] Encounter Details Date Type Department Care Team [...] Hematology/BMT and Cellular Therapy Program [address] [phone] 01/27/2025 4:00 PM EDT Office Visit [facility] Hematology/BMT and Cellular Therapy Program [address] [phone] New Mckinney MD 800 [facility] [address] [place] [phone] documented as of this encounter Visit Diagnoses Not on filedocumented in this encounter Additional Health Concerns Assessment Noted Time A fall risk assessment has been complete d for the patient 09/30/2024 9:33 AM EDT A Body Mass Index follow-up plan has been documented for the patient 05/28/2024 1:52 PM EST documented as of this encounter Care Teams Product Builder Relationship Specialty Start Date End Date Jevon Vazquez MD [address] [place] [address] #1 #1 [place] [address] PCP - General 03/23/22 documented as of this encounter
--- OUTSIDE RECORDS SUMMARY | 2025-01-26 09:09 | XMS_ITS | Encounter Summary ---
Author Organization Healthcare Address [address] [place] [address] Care Team Providers Care Parasitologist Name Role Phone Jevon Vazquez MD Primary Care Provider [phone] Encounter Details Date Type Department Care Team (Late Contact Info) Description 11/27/2024 Telephone [facility] Hematology/BMT and Cellular Therapy Program [address] [phone] Zonia Hoffman, GEOPHYSICAL LABORATORY SUPERVISOR 800 [facility] [address] [place] [phone] Social History Tobacco Use Types Packs/Day Years [...] Hematology/BMT and Cellular Therapy Program [address] [place] [address] 01/27/2025 4:00 PM EDT Office Visit PAV Hematology/BMT and Cellular Therapy Program [address] [place] [address] New Mckinney MD 800 [facility] [address] [place] [phone] documented as of this encounter Visit Diagnoses Not on filedocumented in this encounter Additional Health Concerns Assessment Noted Time A fall risk assessment has been complete d for the patient 09/30/2024 9:33 AM EDT A Body Mass Index follow-up plan has been documented for the patient 05/28/2024 1:52 PM EST documented as of this encounter Care Teams Parasitologist Relationship Specialty Start Date End Date Jevon Vazquez MD [address] [place] [address] #1 #1 [place] [address] PCP - General 03/23/22 documented as of this encounter
--- OUTSIDE RECORDS SUMMARY | 2025-01-26 09:09 | XMS_ITS | Encounter Summary ---
Author Organization Healthcare Address [address] [place] [address] Care Team Providers Care Bracelet Maker Novelty Name Role Phone Jevon Vazquez MD Primary Care Provider [phone] Encounter Details Date Type Department Care Team [...] Hematology/BMT and Cellular Therapy Program [address] [phone] 01/27/2025 4:00 PM EDT Office Visit [facility] Hematology/BMT and Cellular Therapy Program [address] [phone] New Mckinney MD 800 [facility] [address] [place] [phone] documented as of this encounter Visit Diagnoses Not on filedocumented in this encounter Additional Health Concerns Assessment Noted Time A fall risk assessment has been complete d for the patient 09/30/2024 9:33 AM EDT A Body Mass Index follow-up plan has been documented for the patient 05/28/2024 1:52 PM EST documented as of this encounter Care Teams Bracelet Maker Novelty Relationship Specialty Start Date End Date Jevon Vazquez MD [address] [place] [address] #1 #1 [place] [address] PCP - General 03/23/22 documented as of this encounter
--- OUTSIDE RECORDS SUMMARY | 2025-01-26 09:09 | XMS_ITS | Encounter Summary ---
Author Organization [facility] Address [address] [place] [address] Care Team Providers Care Tempering Kiln Tender Name Role Phone Jevon Vazquez MD Primary Care Provider [phone] Reason for Visit * Reason Comments Med Refill Encounter Details Date Type Department Care Team ([facility] Contact Info) Description 01/05/2025 Refill [facility] Hematology/BMT and Cellular Therapy Program [address] [phone] Zonia Hoffman, TRIPE FINISHER 800 [facility] [address] [place] [phone] Social History Tobacco Use Types Packs/Day Years [...] ([facility] Contact Info) Description 01/27/2025 3:30 PM EDT Clinical Support [facility] CC Hematology/BMT and Cellular Therapy Program [address] [phone] 01/27/2025 4:00 PM EDT Office Visit [facility] CC Hematology/BMT and Cellular Therapy Program [address] [phone] New Mckinney MD [address] [facility] [address] [place] [phone] documented as of this encounter Visit Diagnoses [...] Date End Date Jevon Vazquez MD [address] [place] [address] #1 #1 [place] [address] PCP - General 03/23/22 documented as of this encounter
--- OUTSIDE RECORDS SUMMARY | 2025-01-26 09:09 | XMS_ITS | Encounter Summary ---
Author Organization [facility] Address [address] [place] [address] Care Team Providers Care Bisque Cleaner Name Role Phone Jevon Vazquez MD Primary Care Provider [phone] Reason for Visit * Reason Comments Med Refill Encounter Details Date Type Department Care Team ([facility] Contact Info) Description 12/09/2024 Refill [facility] CC Hematology/BMT and Cellular Therapy Program [address] [phone] Zonia Hoffman, MANAGER OF CORPORATE COMMUNICATIONS 800 [facility] [address] [place] [phone] Social History Tobacco Use Types Packs/Day Years [...] Upcoming Encounters Date Type Department Care Team ([facility] Contact Info) Description 01/27/2025 3:30 PM EDT Clinical Support [facility] CC Hematology/BMT and Cellular Therapy Program [address] [phone] 01/27/2025 4:00 PM EDT Office Visit [facility] CC Hematology/BMT and Cellular Therapy Program [address] [phone] New Mckinney MD 800 [facility] [address] [place] [phone] documented as of this encounter Visit Diagnoses Not on filedocumented in this encounter Additional Health Concerns Assessment Noted Time A fall risk assessment has been complete d for the patient 09/30/2024 9:33 AM EDT A Body Mass Index follow-up plan has been documented for the patient 05/28/2024 1:52 PM EST documented as of this encounter Care Teams Bisque Cleaner Relationship Specialty Start Date End Date Jevon Vazquez MD [address] [place] [address] #1 #1 [place] [address] PCP - General 03/23/22 documented as of this encounter
--- OUTSIDE RECORDS SUMMARY | 2025-01-26 09:09 | XMS_ITS | Clinical Summary ---
Author Organization [facility] Address [address] [place] [address] Care Team Providers Care Epic Specialist Name Role Phone David Vazquez Primary Care Provider [phone] Allergies No known active allergies Medications atorvastatin [...] series) 2025 Medical Devices Implanted Type Area Client Account Representative Device Identifier Shelf Expiration Date Model / Serial / Lot Mis Ply Scr 6.5x50mm - [id number] Implanted:Qty : 1 on 01/30/2023 by Ivan Bartholomew MD at [facility] Screw N/A: Spine Lumbar [employer] [id number] / / Mis Ply Scr 6.5x45mm - [id number] Implanted:Qty : 3 on 01/30/2023 by Ivan Bartholomew MD at [facility] Screw N/A: Spine Lumbar [employer] [id number] / / Reline Mas Reduction Screw 7.5x45 - [id number] Implanted:Qty : 2 on 01/30/2023 by Ivan Bartholomew MD at [facility] Screw N/A: Spine Lumbar [employer] [id number] / / Grft Dbm Vesuvius Putty 5cc - [id number] Implanted:Qty : 1 on 01/30/2023 by Ivan Bartholomew MD at [facility] [employer] [id number] 04/20/2025 [id number] P / [id number] 1 / Putty I-Factor 5.0cc - [id number] Implanted:Qty : 1 on 01/30/2023 by Ivan Bartholomew MD at [facility] N/A: Spine Lumbar [employer] 03/15/2025 [id number] / / [id number] Modulus Xlw [id number] 10 Degree - [id number] Implanted:Qty : 1 on 01/30/2023 by Ivan Bartholomew MD at [facility] N/A: Spine Lumbar [employer] [id number] / / [id number] Modulus Xlw [id number] - [id number] Implanted:Qty : 1 on 01/30/2023 by Ivan Bartholomew MD at [facility] N/A: Spine Lumbar [employer] 09/28/2027 [id number] / / [id number] Reln Lock Scr 5.5mm Opn Tulip - [id number] Implanted:Qty : 6 on 01/30/2023 by Ivan Bartholomew MD at [facility] N/A: Spine Lumbar [employer] [id number] / / Reln Mas Ti Petar 5.5x70mm - [id number] Implanted:Qty : 2 on 01/30/2023 by Ivan Bartholomew MD at [facility] N/A: Spine Lumbar [employer] [id number] / / Procedures Procedure Name Priority Date/Time [...] Hgb A1C 6.0(H) 4.0 - 5.6 % [facility] Comment: Reference Ranges [...] Average Glucose 126(H) 68 - 114 mg/dL [facility] Whole Blood (Blood) 01/24/2023 2:32 PM EDT 01/24/2023 6:00 PM EDT us Ivan Bartholomew MD CHEMISTRY ORDERABLES Fin al Result [facility] [address] * (ABNORMAL) BASIC METABOLIC PANEL (BMP=EP1) (01/24/2023 2:32 PM EDT) Sodium 141 135 - 146 mmol/L [facility] Potassium 4.8 3.5 - 5.1 mmol/L [facility] Chloride 107 98 - 110 mmol/L [facility] CO2 24 22 - 29 mmol/L [facility] Anion Gap 10 5 - 13 mmol/L [facility] Comment:Anion gap calculatio n does not include potassium (K+) value. BUN 17 7 - 25 mg/dL [facility] Creatinine 1.20 0.50 - 1.20 mg/dL [facility] Glucose 125(H) 71 - 99 mg/dL [facility] Comment:Reference range (71- 99 mg/dL) refers only to fasting samples, and does not apply to non-fasting samples. eGFR CKD-EPI 2020 48 See Note [facility] Comment: eGFR calculated with 2020 CKD-EPI equation using creatinine, patient's age and gender. Other factors, especially muscle mass, may affect accuracy and need to be considered. Patient values should be interpreted as a trend. The reference interval is >60 mL/min/1.73m2. Calcium 10.3 8.5 - 10.5 mg/dL [facility] BUN/Creatinine Ratio 14 [facility] Serum 01/24/2023 2:32 PM EDT 01/24/2023 5:54 PM EDT us Lexi SUAREZ CHEMISTRY ORDERABLES Final Resu lt [facility] [address] from Last 3 Months or Most Recently Relevant to Health Maintenance Insurance MEDICARE PART A [facility] [address] [address] [place] [address] ANTH Advance Directives For more information, please contact: [phone] * Full Code (Latest Code Status on File) Date Activated Date Inactivated Comments 01/30/2023 9:13 AM No automated chest compression devices for [facility] Patients Care Teams Epic Specialist Relationship Specialty Start Date End Date David Vazquez [address] [place] [phone] PCP - General 01/24/23
--- OUTSIDE RECORDS SUMMARY | 2025-01-26 09:10 | XMS_ITS | Encounter Summary ---
Author Organization [facility] Address [address] [place] [address] Care Team Providers Care Supervisor Lathing Name Role Phone Jevon Vazquez MD Primary Care Provider [phone] Reason for Referral * Genetic Testing (Routine) - Closed Specialty Diagnoses / Procedures Referred By Rebecca Referred To Contact Lab Diagnoses Myelodysplastic syndrome (CMS/HCC) Procedures Cytogenetics Testing, Oncology New Mckinney MD [address] [address] Phone: tel: fax: Referral ID Status Reason Start Date Expiration Date Visits Re quested Visits Authorized [id number] Closed 12/29/2024 06/30/2026 1 1 * Genetic Testing (Routine) - Authorized Specialty Diagnoses / Procedures [facility] Referred To Contact Lab Diagnoses Myelodysplastic syndrome (CMS/HCC) Procedures Leukemia/Lymphoma - Immunophenotyping by Flow Cytometry New Mckinney MD 800 [facility] [address] [address] Phone: tel: fax: Referral ID Status Reason Start Date Expiration Date V isits Requested Visits Authorized [id number] Authorized 12/29/2024 06/30/2026 1 1 * Genetic Testing (Routine) - Authorized Specialty Diagnoses / Procedures [facility] Referred To Contact Lab Diagnoses Myelodysplastic syndrome (CMS/HCC) Procedures Bone marrow exam New Mckinney MD 800 [facility] [address] [address] Phone: tel: fax: Referral ID Status Reason Start Date Expiration Date V isits Requested Visits Authorized [id number] Authorized 12/29/2024 06/30/2026 1 1 Encounter Details Date Type Department Care Team ([facility] Contact Info) Description 12/29/2024 Orders Only [facility] Hematology/BMT and Cellular Therapy Program [address] [place] [address] New Mckinney MD 800 [facility] [address] [address] Myelodysplastic syndrome (CMS/HCC) (Primary Dx) [...] Hematology/BMT and Cellular Therapy Program [address] [place] [address] 01/27/2025 4:00 PM EDT Office Visit [facility] Hematology/BMT and Cellular Therapy Program [address] [place] [address] New Mckinney MD 800 [facility] [address] [address] documented as of this encounter Results * Leukemia/Lymphoma - Immunophenotyping by Flow Cytometry (01/12/2025 9:55 AM EDT) Clinical Indication MDS 01/12/2025 4:19 PM EDT [facility] Flow Cytometry Interpretation APPROXIMATELY 27% MYELOID BLASTS EXPRESSING CD34, CD117, VARIABLE CD33, PARTIAL CD56, VARIABLE HLA-DR, PARTIAL DIM CD7, CD38 AND DIM CD45, SEE COMMENT, BBONE MARROW ASPIRATE. 01/12/2025 4:19 PM EDT [facility] Comments Specimen viability is 89%. Flow [...] surface light chains 01/12/2025 4:19 PM EDT [facility] Disclaimer This test was developed and [...] clinical laboratory testing. 01/12/2025 4:19 PM EDT [facility] Pathologist Signature Reviewed by: Asad Hartman MD 01/12/2025 4:19 PM EDT [facility] MRD Indicated Test Not Indicated 4:19 PM EDT [facility] Bone Marrow Specimen from bone marrow obtained by aspiration / Unknown Non-blood Collection / Unknown 01/12/2025 9:55 AM EDT 01/12/2025 1:48 PM EDT New Mckinney MD LAB FLOW CYTOMETRY ORDERABLES Final Result [facility] [address] [place] [address] * Bone marrow exam (01/12/2025 9:55 AM EDT) Case Report Bone Marrow Case: [id number] Authorizing Provider: New Mckinney MD Collected: 01/12/2025 0955 Ordering Location: [facility] Hematology/BMT and Received: 01/12/2025 [facility] Cellular Therapy Program Pathologist: Asad Hartman MD Specimens: A) - Bone Marrow Aspirate, left B) - Bone Marrow Biopsy, left C) - Peripheral Blood for Bone Marrow 5:16 PM EDT [facility] Cytogenetics Report, Addendum Chromosome Analysis Result: Giemsa-banded metaphase cells from unstimulated bone marrow cultures showed the following chromosome pattern: 43~44,X,-X,add(5)( q23),del(5)(q13q33 ),todd(7)ins?(7)(q1 1.2q11.2)t(7;12)(q 11.2;q13),-12,todd( 17)add(17)(p13.2)a dd(17)(q21)[16]/88 ,XX,idemx2[cp3]/46 ,XY[1] Interpretation: Abnormal female chromosome analysis. 95% of metaphase cells analyzed showed clonal abnormalities consistent with this patient's previous abnormal results (see [facility]-[id number]). 5:16 PM EDT [facility] Addendum electronically signed by Asad Hartman MD on 01/23/2025 at 1716 EDT Final Diagnosis PERIPHERAL BLOOD AND BONE MARROW, LEFT POSTERIOR ILIAC CREST, (PERIPHERAL SMEAR, ASPIRATE SMEAR, AND CORE BIOPSY): - HYPOCELLULAR BONE MARROW WITH MARKEDLY DECREASED MEGAKARYOCYTES, DECREASED MATURING GRANULOPOIESIS, APPROXIMATELY 7-10% VARIABLY DISTRIBUTED BLASTS AND MORE THAN 50% RING SIDEROBLASTS, SEE COMMENT. 5:16 PM EDT [facility] at 0941 EDT Comment The discrepancy between blasts percentage by morphologic assessment and flow cytometric analysis is due to erythroid precursors that constitute majority of bone marrow cellularity and are removed by flow cytometry. 5:16 PM EDT [facility] Clinical Information MDS 01/14 5:16 PM EDT [facility] CBC and Differential PERIPHERAL BLOOD: 01/12/2025: [...] cells. Platelets are decreased. 5:16 PM EDT [facility] Bone Marrow Differential BONE MARROW DIFFERENTIAL: 300 cells Normal Patient Neutrophils 15-50 12 Metamyelocytes 4-19 0 Myelocytes 1-18 1 Promyelocytes 1-8 0 Blasts 0-2 7 Monocytes 0-5 7 Erythroid 16-38 61 Lymphocytes 3-24 7 Eosinophils 0-6 3 Basophils 0-2 0 Plasma cells 0-4 2 Other 5:16 PM EDT [facility] Aspirate Smear The bone marrow aspirate [...] constitute more than 50% of erythroid precursors. 5 5:16 PM EDT [facility] Core Biopsy CELLULARITY: Variably cellular bone [...] Bony trabeculae are normal. 5:16 PM EDT [facility] Special and Immunohistochemical Stains Immunohistochemica l [...] the [facility], [address] [place] [address]. All tests reported here, except those addressing [...] false negativity on decalcified specimens. 5:16 PM EDT [facility] Flow Cytometry Interpretation Flow cytometric analysis demonstrates approximately 27% population of myeloid blasts in this patient with history of myelodysplastic syndrome; expressing CD34, CD117, variable CD33, partial CD56, variable HLA-DR, partial dim CD7, CD38 and dim CD45 ([id number]). 5:16 PM EDT [facility] Gross Description B. LEFT A single specimen is received in formalin labeled bone marrow biopsy left posterior iliac crest and consists of 1 piece(s) of red/white tissue measuring 0.9 cm in length 0.2 cm in diameter. The specimen is submitted in to Histology for decalcification and routine processing. Cold Time: <1m 5:16 PM EDT [facility] Note: A resident was involved in the service. I attest I examined the relevant preparations for the specimens and confirmed the diagnosis or interpretation. 5:16 PM EDT [facility] [...] PATHOLOGY ORDERABLES Edit ed Result - Final [facility] [address] [place] [address] documented in this encounter Visit Diagnoses Diagnosis Myelodysplastic syndrome (CMS/HCC)- Primary Myelodysplastic syndrome, unspecified Myelodysplastic syndrome (CMS/HCC)- Primary Myelodysplastic syndrome, unspecified [...] as of this encounter Care Teams Supervisor Lathing Relationship Specialty Start Date End Date Jevon Vazquez MD [address] [place] [address] #1 #1 [place] [address] PCP - General 03/23/22 documented as of this encounter
--- OUTSIDE RECORDS SUMMARY | 2025-01-26 09:10 | XMS_ITS | Encounter Summary ---
Author Organization Healthcare Address [address] [place] [address] Care Team Providers Care Phd Internship Name Role Phone Jevon Vazquez MD Primary Care Provider [phone] Encounter Details Date Type Department Care Team [...] Hematology/BMT and Cellular Therapy Program [address] [address] 01/27/2025 4:00 PM EDT Office Visit [facility] Hematology/BMT and Cellular Therapy Program [address] [address] New Mckinney MD 800 [facility] [address] [place] [phone] documented as of this encounter Visit Diagnoses Not on filedocumented in this encounter Additional Health Concerns Assessment Noted Time A fall risk assessment has been complete d for the patient 09/30/2024 9:33 AM EDT A Body Mass Index follow-up plan has been documented for the patient 05/28/2024 1:52 PM EST documented as of this encounter Care Teams Phd Internship Relationship Specialty Start Date End Date Jevon Vazquez MD [address] [place] [address] #1 #1 [place] [address] PCP - General 03/23/22 documented as of this encounter
--- OUTSIDE RECORDS SUMMARY | 2025-01-26 09:10 | XMS_ITS | Encounter Summary ---
Author Organization Healthcare Address [address] [place] [address] Care Team Providers Care Electron Beam Welding Machine Operator Name Role Phone Jevon Vazquez MD Primary Care Provider [phone] Encounter Details Date Type Department Care Team [...] Hematology/BMT and Cellular Therapy Program [address] [address] 01/27/2025 4:00 PM EDT Office Visit [facility] Hematology/BMT and Cellular Therapy Program [address] [address] New Mckinney MD 800 [facility] [address] [place] [phone] documented as of this encounter Visit Diagnoses Not on filedocumented in this encounter Additional Health Concerns Assessment Noted Time A fall risk assessment has been complete d for the patient 09/30/2024 9:33 AM EDT A Body Mass Index follow-up plan has been documented for the patient 05/28/2024 1:52 PM EST documented as of this encounter Care Teams Electron Beam Welding Machine Operator Relationship Specialty Start Date End Date Jevon Vazquez MD [address] [place] [address] #1 #1 [place] [address] PCP - General 03/23/22 documented as of this encounter
--- OUTSIDE RECORDS SUMMARY | 2025-01-26 09:10 | XMS_ITS | Clinical Summary ---
Author Organization [facility] Address [address] [place] [address] Phone Care Team Providers Care Corridor Redevelopment Manager Name Role Phone Jevon Vazquez MD Primary Care Provider Allergies Active Allergy Reactions Criticality Noted Date [...] MD; Location: [facility] MAIN OR; Service: Spine Medical History Medical [...] 5.6 % 11/14/2022 2:57 PM EDT PREFERRED [employer] Est. Avg Glucose 148 mg/dL 11/14/2022 2:57 PM EDT [employer], [employer] Blood VENOUS BLOOD / Unknown Venipuncture / Unknown 11/11/2022 3:46 PM EDT 11/11/2022 3:55 PM EDT Narrative PREFERRED [email or web address] [facility] - 11/14/2022 2:57 PM EDT REFERENCE RANGE: Normal: 4.0-5.6% Pre-diabetes: 5.7-6.4% Provisional diagnosis of diabetes: >6.4% Hgb F>10% and anything which shortens red cell survival, such as hemolytic anemia, or unstable hemoglobin variants such as HbSS, HbSC, or HbCC, will lower the HbA1c value associated with a given level of glycemic control. us Lexi Maloney DO CHEMISTRY ORDERABLES Final R esult [employer] [address] [facility] , [address] [place] [id number] * (ABNORMAL) BASIC METABOLIC PANEL (11/11/2022 3:46 PM EDT) Sodium 136 136 - 145 mmol/L 11/11/2022 4:11 PM EDT [facility] Potassium 3.8 3.5 - 5.0 mmol/L 11/11/2022 4:11 PM EDT [facility] Chloride 102 98 - 107 mmol/L 11/11/2022 4:11 PM EDT [facility] Total CO2 24 22 - 29 mmol/L 11/11/2022 4:11 PM EDT [facility] Anion Gap 10 7 - 16 mmol/L 11/11/2022 4:11 PM EDT [facility] Calcium 10.1 8.8 - 10.4 mg/dL 11/11/2022 4:11 PM EDT [facility] Glucose Lvl 147(H) 82 - 100 mg/dL 11/11/2022 4:11 PM EDT [facility] BUN 15 8 - 23 mg/dL 11/11/2022 4:11 PM EDT [facility] Creatinine 0.82 0.51 - 1.30 mg/dL 11/11/2022 4:11 PM EDT [facility] eGFR (CKD-EPIcr 2021) 76 >=60 mL/min/1.7 3 m2 11/11/2022 4:11 PM EDT [facility] Comment:Estimated GFR was ca lculated using the CKD-EPIcr (2020) equation refit without race. The equation is recommended by the National Kidney Foundation - [place] [employer]ph[employer] Task Force. Blood VENOUS BLOOD / Unknown Venipuncture / Unknown 11/11/2022 3:46 PM EDT 11/11/2022 3:54 PM EDT us Leona Hanna DO CHEMISTRY ORDERABLES Final Res ult [facility] [address] [place] [address] * DX BONE DENSITY AXIAL SKELETON (07/25/2022 9:14 AM EDT) Anatomical Region Laterality Modality Dexa Scan 07/25/2022 Narrative 07/25/2022 3:45 PM EDT Indication: The patient is a female age 65 or older who requires a bone density assessment. Study was performed on X BODY 5. Bone Density: Region BMD T-score Z-score [...] Payer (Ef fective 2016-Present) Name:Ashly Hernández Member ID:[id number] Relation to Subscriber:Self Name:Ashly Hernández Subscriber ID:[id number] Payer ID:Not on file Group ID:Not on file Type:Not on file Address: [address] MEDICARE SUPPLEMENT [place] PART A & B [place] A [place] B Member Subscriber Plan / Payer (Ef fective 2016-Present) Name:Ashly Hernández Member ID:[id number] Relation to Subscriber:Self Name:Ashly Hernández Subscriber ID:[id number] Payer ID:Not on file Group ID:Not on file Type:Not on file Address: [address] MEDICARE SUPPLEMENT [employer] MEDICARE [place] PART A AND B [address] MEDICARE SUPPLEMENT Advance Directives For more information, please contact: [phone] * Full Code (Latest Code Status on File) Date Activated Date Inactivated Comments 11/14/2022 6:53 PM 11/16/2022 7:37 PM * Full Code Date Activated Date Inactivated Comments 11/12/2022 5:17 AM 11/14/2022 6:47 PM Care Teams Corridor Redevelopment Manager Relationship Specialty Start Date End Date Jevon Vazquez MD [address] [place] [address] PCP - General Family Medicine 11/10/22
--- OUTSIDE RECORDS SUMMARY | 2025-01-26 09:10 | XMS_ITS | Clinical Summary ---
Author Organization [facility] Address [address] 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, [address] [place] [phone] Zonia Hoffman, HOPPER OPERATOR 01/05/2025 Travel 01/05/2025 Refill [facility]ematology/BMT and Cellular Therapy Program [address] [facility], [address] [place] [phone] Zonia Hoffman, HOPPER OPERATOR 12/29/2024 Orders Only [facility] Hematology/BMT and Cellular Therapy Program [address] [facility], [address] [place] [phone] New Mckinney MD Myelodysplastic syndrome (CMS/HCC) (Primary Dx) 12/29/2024 Telephone [facility]ematology/BMT and Cellular Therapy Program [address] [facility], [address] [place] [phone] Bibiana Sepulveda, HOPPER OPERATOR 12/28/2024 Travel 12/26/2024 Travel 12/25/2024 Travel 12/24/2024 Travel 12/23/2024 Travel 12/11/2024 Telephone [facility]ology[facility]BMT and Cellular Therapy Program [address] [facility], [address] [place] [phone] New Mckinney MD 12/10/2024 Travel 12/09/2024 Refill [facility]ology/BMT and Cellular Therapy Program [address] [facility], [address] [place] [phone] Zonia Hoffman, HOPPER OPERATOR 11/27/2024 Telephone [facility]ology/BMT and Cellular Therapy Program [address] [facility], [address] [place] [phone] Zonia Hoffman, HOPPER OPERATOR 11/26/2024 Travel 11/25/2024 Travel 11/24/2024 Travel 11/23/2024 Travel 11/22/2024 Travel 11/13/2024 Orders Only [facility] Hematology/BMT and Cellular Therapy Program [address] 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) 11/12/2024 Travel 11/12/2024 Telephone [facility]ematology/BMT and Cellular Therapy Program [address] [place] [address] [place] [phone] Zonia Hoffman, HOPPER OPERATOR 11/11/2024 Travel 11/10/2024 Travel 11/09/2024 Travel 11/08/2024 Travel 11/08/2024 Refill [facility]ematology/BMT and Cellular Therapy Program [address] [place] [phone] New Mckinney MD 11/07/2024 Travel 10/29/2024 Refill [facility]ematology/BMT and Cellular Therapy Program [address] [place] [phone] Zonia Hoffman, HOPPER OPERATOR 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); Immunosuppressed status (CMS/HCC) 10/28/2024 Telephone [facility]ematology/BMT and Cellular Therapy Program [address] [place] [phone] Zonia Hoffman, HOPPER OPERATOR 10/27/2024 Telephone [facility]ology/BMT and Cellular Therapy Program [address] [place] [address] [place] [phone] Zonia Hoffman, HOPPER OPERATOR 10/27/2024 Travel 10/26/2024 Travel from Last 3 Months Immunizations Immunization [...] [place] Contact Info) Description 01/27/2025 3:30 PM EDT Clinical Support [facility] Hematology/BMT and Cellular Therapy Program [address] [phone] 01/27/2025 4:00 PM EDT Office Visit [facility] Hematology/BMT and Cellular Therapy Program [address] [place] [phone] New Mckinney MD 800 [facility] [address] [place] [phone] Health Maintenance Due Date Last Done Comments [facility] Annual Wellness (AWV) 1950 [facility]-/Child/Adol SDOH Screenings 1950 [facility]- SDOH Screenings 1968 [facility]-Adult SDOH Screenings 1968 CT Colonography 11/04/1995 Colonoscopy 11/04/1995 FIT-DNA 11/04/1995 FIT 11/04/1995 FOBT 11/04/1995 Sigmoidoscopy 11/04/1995 [facility]-Colorectal Cancer Screening 11/04/1995 [facility]-Breast Cancer Screening 2000 [facility]-RSV Vaccine: 60+ Years or (1 - Risk 60-74 years 1-dose series) 2010 [facility]-Zoster Vaccines (1 of 2) 05/16/2023 03/21/2023 [facility]-Bone Density Scan 07/25/2024 07/25/2022 [id number]-56 Vaccine (4 - season) 2024 02/18/2021, 07/10/2020, [...] this topic Medical Devices Implanted Type Area Net Mobile Developer Device Identifier Shelf Expiration Date Model / Serial / Lot Port Clearvue Power 8fr - [id number] Implanted:Qty: 1 on 01/21/2024 by Ness Sargent MD at [facility] [employer] [facility]-[id number] / / Procedures Procedure Name Priority Date/Time [...] Type Bone Marrow 01/20/2025 12:21 PM EDT [facility] Clinical Indication Myelodysplastic Syndrome 01/20/2025 12:21 PM EDT [facility] Specimen Adequacy Adequate 025 12:21 PM EDT [facility] Chromosome Analysis Result Giemsa-banded metaphase cells from unstimulated bone marrow cultures showed the following chromosome pattern: 43~44,X,-X,add(5)( q23),del(5)(q13q33 ),todd(7)ins?(7)(q1 1.2q11.2)t(7;12)(q 11.2;q13),-12,todd( 17)add(17)(p13.2)a dd(17)(q21)[16]/88 ,XX,idemx2[cp3]/46 ,XY[1] 01/20/2025 12:21 PM EDT [facility] Interpretation Abnormal female chromosome analysis. 95% of metaphase cells analyzed showed clonal abnormalities consistent with this patient's previous abnormal results (see [facility]-[id number]). Clinical correlation is recommended. Note: Per [employer] (CAP) requirement an additional karyotype was performed and charged due to the presence of clonal abnormalities. # cells counted = 20 # cells analyzed = 20 # cells karyotyped = 3 Band resolution: 400-450 01/20/2025 12:21 PM EDT [facility] Pathologist Signature Reviewed by: Corey Tejada 01/20/2025 12:21 PM EDT [facility] Bone Marrow Non-blood Collection / Unknown 01/12/2025 9:55 AM EDT 01/12/2025 12:37 PM EDT us New Mckinney MD LAB CYTOGENETICS ORDERABLES F inal Result [facility] [address] [place] [address] * Leukemia/Lymphoma - Immunophenotyping by Flow Cytometry (01/12/2025 9:55 AM EDT) Clinical Indication MDS 01/12/2025 4:19 PM EDT [facility] Flow Cytometry Interpretation APPROXIMATELY 27% MYELOID BLASTS EXPRESSING CD34, CD117, VARIABLE CD33, PARTIAL CD56, VARIABLE HLA-DR, PARTIAL DIM CD7, CD38 AND DIM CD45, SEE COMMENT, BBONE MARROW ASPIRATE. 01/12/2025 4:19 PM EDT [facility] Comments Specimen viability is [...] surface light chains 01/12/2025 4:19 PM EDT [facility] Disclaimer This test was developed and its performance characteristics determined by the Immuno-Molecular Pathology Laboratory at the [facility]. It has not been cleared or [...] clinical laboratory testing. 01/12/2025 4:19 PM EDT [facility] Pathologist Signature Reviewed by: Asad Hartman MD 01/12/2025 4:19 PM EDT [facility] MRD Indicated Test Not Indicated 4:19 PM EDT [facility] Bone Marrow Specimen from bone marrow obtained by aspiration / Unknown Non-blood Collection / Unknown 01/12/2025 9:55 AM EDT 01/12/2025 1:48 PM EDT us New Mckinney MD LAB FLOW CYTOMETRY ORDERABLES Final Result [facility] [address] [place] [address] * Bone marrow exam (01/12/2025 9:55 AM EDT) Case Report Bone Marrow Case: [id number] Authorizing Provider: New Mckinney MD Collected: 01/12/2025 0955 Ordering Location: [facility] Hematology/BMT and Received: 01/12/2025 [facility] Cellular Therapy Program Pathologist: Asad Hartman MD Specimens: A) - Bone Marrow Aspirate, left B) - Bone Marrow Biopsy, left C) - Peripheral Blood for Bone Marrow 5:16 PM EDT [facility] Cytogenetics Report, Addendum Chromosome Analysis Result: Giemsa-banded metaphase cells from unstimulated bone marrow cultures showed the following chromosome pattern: 43~44,X,-X,add(5)( q23),del(5)(q13q33 ),todd(7)ins?(7)(q1 1.2q11.2)t(7;12)(q 11.2;q13),-12,todd( 17)add(17)(p13.2)a dd(17)(q21)[16]/88 ,XX,idemx2[cp3]/46 ,XY[1] Interpretation: Abnormal female chromosome analysis. 95% of metaphase cells analyzed showed clonal abnormalities consistent with this patient's previous abnormal results (see [facility]-[id number]). 5:16 PM EDT [facility] Addendum electronically signed by Asad Hartman MD on 01/23/2025 at 1716 EDT Final Diagnosis PERIPHERAL BLOOD AND BONE MARROW, LEFT POSTERIOR ILIAC CREST, (PERIPHERAL SMEAR, ASPIRATE SMEAR, AND CORE BIOPSY): - HYPOCELLULAR BONE MARROW WITH MARKEDLY DECREASED MEGAKARYOCYTES, DECREASED MATURING GRANULOPOIESIS, APPROXIMATELY 7-10% VARIABLY DISTRIBUTED BLASTS AND MORE THAN 50% RING SIDEROBLASTS, SEE COMMENT. 5:16 PM EDT [facility] at 0941 EDT Comment The discrepancy between blasts percentage by morphologic assessment and flow cytometric analysis is due to erythroid precursors that constitute majority of bone marrow cellularity and are removed by flow cytometry. 5:16 PM EDT [facility] Clinical Information MDS 01/14 5:16 PM EDT [facility] CBC [...] cells. Platelets are decreased. 5:16 PM EDT [facility] Bone Marrow Differential BONE MARROW DIFFERENTIAL: 300 cells Normal Patient Neutrophils 15-50 12 Metamyelocytes 4-19 0 Myelocytes 1-18 1 Promyelocytes 1-8 0 Blasts 0-2 7 Monocytes 0-5 7 Erythroid 16-38 61 Lymphocytes 3-24 7 Eosinophils 0-6 3 Basophils 0-2 0 Plasma cells 0-4 2 Other 5:16 PM EDT [facility] Aspirate Smear The bone [...] 50% of erythroid precursors. 5:16 PM EDT [facility] Core Biopsy CELLULARITY: Variably [...] Bony trabeculae are normal. 5:16 PM EDT [facility] Special and Immunohistochemical Stains Immunohistochemica [...] [facility], [address] [place] [address]. All tests reported here, except those addressing [...] negativity on decalcified specimens. 5:16 PM EDT [facility] Flow Cytometry Interpretation Flow cytometric analysis demonstrates approximately 27% population of myeloid blasts in this patient with history of myelodysplastic syndrome; expressing CD34, CD117, variable CD33, partial CD56, variable HLA-DR, partial dim CD7, CD38 and dim CD45 ([id number]). 5:16 PM EDT [facility] Gross Description B. LEFT A single specimen is received in formalin labeled bone marrow biopsy left posterior iliac crest and consists of 1 piece(s) of red/white tissue measuring 0.9 cm in length 0.2 cm in diameter. The specimen is submitted in to Histology for decalcification and routine processing. Cold Time: <1m 10/10/202 5 5:16 PM EDT [facility] Note: A resident was involved in the service. I attest I examined the relevant preparations for the specimens and confirmed the diagnosis or interpretation. 5:16 PM EDT [facility] Bone [...] PATHOLOGY ORDERABLES Edit ed Result - Final [facility] [address] [place] [address] * (ABNORMAL) CBC and Differential (01/12/2025 9:15 AM EDT) WBC Count 1.31(L) 3.70 - 10.30 10*3/uL LAB HEMATOLOGY METHOD 01/12/2025 9:58 AM EDT [facility] RBC Count 2.70(L) 3.90 - 5.20 10*6/uL LAB HEMATOLOGY METHOD 01/12/2025 9:58 AM EDT [facility] HGB 8.4(L) 11.2 - 15.7 g/dL LAB HEMATOLOGY METHOD 01/12/2025 9:58 AM EDT [facility] HCT 25.0(L) 34.0 - 45.0 % LAB HEMATOLOGY METHOD 01/12/2025 9:58 AM EDT [facility] Platelet Count 31(L) 155 - 369 10*3/uL LAB HEMATOLOGY METHOD 01/12/2025 9:58 AM EDT [facility] MCV 93 79 - 98 fL LAB HEMATOLOGY METHOD 01/12/2025 9:58 AM EDT [facility] MCH 31.1 26.0 - 32.0 pg LAB HEMATOLOGY METHOD 01/12/2025 9:58 AM EDT [facility] MCHC 33.6 30.7 - 35.5 g/dL LAB HEMATOLOGY METHOD 01/12/2025 9:58 AM EDT [facility] RDW 20.0(H) 11.5 - 14.5 % LAB HEMATOLOGY METHOD 01/12/2025 9:58 AM EDT [facility] MPV 8.8 8.8 - 12.5 fL LAB HEMATOLOGY METHOD 01/12/2025 9:58 AM EDT [facility] nRBC 3.1(H) <=0.0 per 100 WBCs LAB HEMATOLOGY METHOD 01/12/2025 9:58 AM EDT [facility] Differential Type Automated LAB HEMATOLOGY METHOD 01/12/2025 9:58 AM EDT [facility] Neutrophils % 19 % LAB HEMATOLOGY METHOD 01/12/2025 9:58 AM EDT [facility] Lymphocytes % 64 % LAB HEMATOLOGY METHOD 01/12/2025 9:58 AM EDT [facility] Monocytes % 15 % LAB HEMATOLOGY METHOD 01/12/2025 9:58 AM EDT [facility] Eosinophils % 2 % LAB HEMATOLOGY METHOD 01/12/2025 9:58 AM EDT [facility] Basophils % 0 % LAB HEMATOLOGY METHOD 01/12/2025 9:58 AM EDT [facility] Immature Granulocytes % 0 % LAB HEMATOLOGY METHOD 01/12/2025 9:58 AM EDT [facility] Neutrophils Absolute 0.25(LL) 1.60 - 6.10 10*3/uL LAB HEMATOLOGY METHOD 01/12/2025 9:58 AM EDT [facility] Lymphocytes Absolute 0.84(L) 1.20 - 3.90 10*3/uL LAB HEMATOLOGY METHOD 01/12/2025 9:58 AM EDT [facility] Monocytes Absolute 0.20(L) 0.30 - 0.90 10*3/uL LAB HEMATOLOGY METHOD 01/12/2025 9:58 AM EDT [facility] Eosinophils Absolute 0.02 0.00 - 0.50 10*3/uL LAB HEMATOLOGY METHOD 01/12/2025 9:58 AM EDT [facility] Basophils Absolute 0.00 0.00 - 0.10 10*3/uL LAB HEMATOLOGY METHOD 01/12/2025 9:58 AM EDT [facility] Immature Granulocytes Absolute 0.00 0.00 - 0.06 10*3/uL LAB HEMATOLOGY METHOD 01/12/2025 9:58 AM EDT [facility] Blood Blood sample taken from central line / Unknown (Port) Long-term Catheter / Unknown 01/12/2025 9:15 AM EDT 01/12/2025 9:31 AM EDT Narrative [facility] - 01/12/2025 9:58 AM EDT Therapeutic decision making should be based on absolute values, rather than percentages. us New Mckinney MD LAB BLOOD ORDERABLES Final Re sult [facility] [address] [place] [address] * (ABNORMAL) Comprehensive Metabolic Panel, Plasma (01/12/2025 9:15 AM EDT) Glucose, Plasma 121(H) 74 - 99 mg/dL 01/12/2025 10:02 AM EDT [facility] BUN, Plasma 24(H) 8 - 23 mg/dL 01/12/2025 10:02 AM EDT [facility] Creatinine, Plasma 1.19(H) 0.60 - 1.10 mg/dL 01/12/2025 10:02 AM EDT [facility] BUN/Creatinine Ratio 20 01/12/2025 10:02 AM EDT [facility] Sodium, Plasma 138 136 - 145 mmol/L 01/12/2025 10:02 AM EDT [facility] Potassium, Plasma 3.9 3.6 - 4.9 mmol/L 01/12/2025 10:02 AM EDT [facility] Chloride, Plasma 105 97 - 107 mmol/L 01/12/2025 10:02 AM EDT [facility] CO2, Plasma 21(L) 22 - 29 mmol/L 01/12/2025 10:02 AM EDT [facility] Anion Gap 12 6 - 16 mmol/L 01/12/2025 10:02 AM EDT [facility] Total Calcium, Plasma 9.7 8.9 - 10.2 mg/dL 01/12/2025 10:02 AM EDT [facility] Total Protein 6.1(L) 6.3 - 7.9 g/dL 01/12/2025 10:02 AM EDT [facility] Albumin, Plasma 3.9 3.5 - 5.2 g/dL 01/12/2025 10:02 AM EDT [facility] AST, Plasma 28 10 - 35 U/L 01/12/2025 10:02 AM EDT [facility] ALT, Plasma 12 10 - 35 U/L 01/12/2025 10:02 AM EDT [facility] Alkaline Phosphatase, Plasma 43(L) 46 - 142 U/L 01/12/2025 10:02 AM EDT [facility] Total Bilirubin, Plasma 0.5 0.2 - 1.1 mg/dL 01/12/2025 10:02 AM EDT [facility] eGFRcr 48.1 mL/min/1.7 3m*2 01/12/2025 10:02 AM EDT [facility] Comment:Reported eGFRcr in m L/min/1.73m2 is based the CKD-EPI 2020 equation that does not use a race coefficient. Blood Blood sample taken from central line / Unknown (Port) Long-term Catheter / Unknown 01/12/2025 9:15 AM EDT 01/12/2025 9:33 AM EDT New Mckinney MD LAB BLOOD ORDERABLES Final Re sult Performing Organization Address City/[facility]/ZIP Co de Phone Number [facility] [address] [place] [address] * Hepatitis C Antibody w/Reflex to HCV Quant PCR (01/07/2024 8:42 AM EDT) Hepatitis C Antibody Negative Negative 01/07/2024 10:13 AM EDT [facility] Blood Venous blood specimen / Unknown Venipuncture / Unknown 01/07/2024 8:42 AM EDT 01/07/2024 9:25 AM EDT New Mckinney MD LAB BLOOD ORDERABLES Final Re sult Performing Organization Address City/[facility]/ZIP Co de Phone Number [facility] [address] [place] [address] from Last 3 Months or Most Recently Relevant to Health Maintenance [place] [address] FOR[facility]LY [facility] Care Teams Optic Fibre Drawer Relationship Specialty Start Date End Date Jevon Vazquez MD [address] [place] [address] #1 #1 [place] [phone] PCP - General 03/23/22
--- OUTSIDE RECORDS SUMMARY | 2025-01-26 09:10 | XMS_ITS | Encounter Summary ---
Author Organization Healthcare Address [address] [place] [address] Care Team Providers Care Host Name Role Phone Jevon Vazquez MD Primary Care Provider [phone] Encounter Details Date Type Department Care Team [...] Hematology/BMT and Cellular Therapy Program [address] [phone] 01/27/2025 4:00 PM EDT Office Visit [facility] Hematology/BMT and Cellular Therapy Program [address] [phone] New Mckinney MD 800 [facility] [address] [place] [phone] documented as of this encounter Visit Diagnoses Not on filedocumented in this encounter Additional Health Concerns Assessment Noted Time A fall risk assessment has been complete d for the patient 09/30/2024 9:33 AM EDT A Body Mass Index follow-up plan has been documented for the patient 05/28/2024 1:52 PM EST documented as of this encounter Care Teams Host Relationship Specialty Start Date End Date Jevon Vazquez MD [address] [place] [address] #1 #1 [place] [phone] PCP - General 03/23/22 documented as of this encounter
--- OUTSIDE RECORDS SUMMARY | 2025-01-26 09:10 | XMS_ITS | Encounter Summary ---
Author Organization Healthcare Address [address] [place] [address] Care Team Providers Care Traffic Signal Technician Name Role Phone Jevon Vazquez MD Primary Care Provider [phone] Encounter Details Date Type Department Care Team [...] Hematology/BMT and Cellular Therapy Program [address] [phone] 01/27/2025 4:00 PM EDT Office Visit [facility] Hematology/BMT and Cellular Therapy Program [address] [phone] New Mckinney MD 800 [facility] [address] [place] [phone] documented as of this encounter Visit Diagnoses Not on filedocumented in this encounter Additional Health Concerns Assessment Noted Time A fall risk assessment has been complete d for the patient 09/30/2024 9:33 AM EDT A Body Mass Index follow-up plan has been documented for the patient 05/28/2024 1:52 PM EST documented as of this encounter Care Teams Traffic Signal Technician Relationship Specialty Start Date End Date Jevon Vazquez MD [address] [place] [address] #1 #1 [place] [phone] PCP - General 03/23/22 documented as of this encounter
[2025-01-26 09:18] LABS: Hematocrit 26.7 % (37.0-47.0); Hemoglobin 9.1 g/dL (12.2-16.2); Immature Granulocytes % 0 %; Mean Corpuscular HGB Conc 34.1 g/dL (31.8-35.4); Mean Corpuscular Hemoglobin 31.2 pg (27.0-31.2); Mean Corpuscular Volume 91.4 fl (81-99); Nucleated Red Blood Cells % 3.8 %; Red Blood Count 2.92 M/mm3 (4.20-5.40); Red Cell Distribution Width-SD 59.6 fL
[2025-01-26 09:28] LABS: White Blood Count 1.6 K/mm3 (4.8-10.8)
[2025-01-26 09:29] LABS: Platelet Count 42 K/mm3 (142-424)
[2025-01-26 09:33] LABS: Albumin Level 3.6 g/dl (3.5-5.0); Chloride 104 mmol/L (98-107); Potassium 3.6 mmoL/L (3.5-5.1); Sodium 137 mmol/L (136-145)
[2025-01-26 09:35] LABS: Blood Urea Nitrogen 18 mg/dl (7-17); Creatinine,Serum 1.00 mg/dl (0.52-1.04); Estimated Glomerular Filt Rate 54 ml/min (>60); GFR (African American) 66 ML/MIN (>60)
[2025-01-26 09:36] LABS: Alanine Aminotransferase 16 U/L (12-78); Albumin/Globulin Ratio 1.4 (1.1-1.8); Alkaline Phosphatase 50 U/L (38-126); Anion Gap 12.6 mEq/L (5-15); Aspartate Amino Transferase 34 U/L (14-36); Bilirubin,Total 0.7 mg/dl (0.2-1.3); Calcium 9.1 mg/dl (8.4-10.2); Carbon Dioxide 24 mmol/L (22.0-30.0); Globulin 2.5 g/dL (1.3-3.2); Glucose 140 mg/dl (74-100); Total Protein,Serum 6.1 g/dl (6.3-8.2)
[2025-01-26 10:05] LABS: Total Cells Counted 100
[2025-01-26 10:08] LABS: Hypochromasia 1+
== END 2025-01-26 23:59 | disposition home or self-care (01) ==
LOC: INF 09:03
PROVIDERS: PCP Family Medicine; Visit Provider Internal Medicine Medical Oncology
DX: C92.00 Acute myeloblastic leukemia, not having achieved remission (principal)
CPT/HCPCS: 36591; 80053; 85007; 85025; 85027; J1642

== ENCOUNTER 2025-01-29 09:00 | Outpatient (CLI) | payer MEDICARE, BC, SELFPAY ==
--- OUTSIDE RECORDS SUMMARY | 2025-01-12 09:30 | XMS_ITS | Encounter Summary ---
Author Organization Healthcare Address [address] [place] [address] Care Team Providers Care [employer] Name Role Phone Jevon Vazquez MD Primary Care Provider [phone] Reason for Visit * Reason Comments Labs Encounter Details Date Type Department Care Team ([facility] Contact Info) Description 01/12/2025 9:30 AM EDT Clinical Support [facility] Hematology/BMT and Cellular Therapy Program [address] [phone] Social History Tobacco Use Types Packs/Day Years [...] [facility] Contact Info) Description 03/03/2025 1:00 PM EST Clinical Support [facility]ology[facility]BMT [facility] Cellular Therapy Program [address] [phone] 03/03/2025 1:30 PM EST Office Visit [facility] Hematology/BMT and Cellular Therapy Program [address] [phone] Zonia Hoffman, PREPARATION ROOM MANAGER 800 [facility] [address] [place] [phone] documented as of this encounter Visit Diagnoses Not on filedocumented in this encounter Additional Health Concerns Assessment Noted Time A fall risk assessment has been complete d for the patient 09/30/2024 9:33 AM EDT A Body Mass Index follow-up plan has been documented for the patient 05/28/2024 1:52 PM EST documented as of this encounter Care Teams [employer] Relationship Specialty Start Date End Date Jevon Vazquez MD [address] [place] [address] #1 #1 [place] [phone] PCP - General 03/23/22 documented as of this encounter
--- OUTSIDE RECORDS SUMMARY | 2025-01-12 10:00 | XMS_ITS | Encounter Summary ---
Author Organization [facility] Address [address] [place] [address] Care Team Providers Care Regulatory Affairs Intern Name Role Phone Jevon Vazquez MD Primary Care Provider [phone] Reason for Visit * Genetic Testing (Routine) - Authorized Specialty Diagnoses / Procedures Referred By Rebecca barron Referred To Contact Lab Diagnoses Myelodysplastic syndrome (CMS/HCC) Procedures Leukemia/Lymphoma - Immunophenotyping by Flow Cytometry New Mckinney MD 800 [facility] [address] [phone] Phone: tel: fax: Referral ID Status Reason Start Date Expiration Date V isits Requested Visits Authorized [id number] Authorized 12/29/2024 06/30/2026 1 1 Encounter Details Date Type Department Care Team (Latest Contact Info) Description 01/12/2025 10:00 AM EDT Procedure Visit [facility] Hematology/BMT and Cellular Therapy Program [address] [phone] Rebecca Barrientos PA 800 [facility] [address] [phone] Myelodysplastic syndrome (CMS/HCC); Acute myeloid [...] CC HEMATOLOGY/BMT AND CELLULAR THERAPY PROGRAM 800 [facility] [phone] / documented in this encounter Plan of Treatment Upcoming Encounters Date Type Department Care Team ([facility] st Contact Info) Description 03/03/2025 1:00 PM EST Clinical Support [facility] Hematology/BMT and Cellular Therapy Program [address] [phone] 03/03/2025 1:30 PM EST Office Visit [facility] Hematology/BMT and Cellular Therapy Program [address] [phone] Zonia Hoffman, RODDY 800 [facility] [address] [place] [phone] documented as of this encounter Procedures Procedure [...] Type Bone Marrow 01/20/2025 12:21 PM EDT [facility] Clinical Indication Myelodysplastic Syndrome 01/20/2025 12:21 PM EDT [facility] Specimen Adequacy Adequate 025 12:21 PM EDT [facility] Chromosome Analysis Result Giemsa-banded metaphase cells from unstimulated bone marrow cultures showed the following chromosome pattern: 43~44,X,-X,add(5)( q23),del(5)(q13q33 ),todd(7)ins?(7)(q1 1.2q11.2)t(7;12)(q 11.2;q13),-12,todd( 17)add(17)(p13.2)a dd(17)(q21)[16]/88 ,XX,idemx2[cp3]/46 ,XY[1] 01/20/2025 12:21 PM EDT [facility] Interpretation Abnormal female chromosome analysis. 95% of metaphase cells analyzed showed clonal abnormalities consistent with this patient's previous abnormal results (see [id number]). Clinical correlation is recommended. Note: Per [employer] ([employer]) requirement an additional karyotype was performed and charged due to the presence of clonal abnormalities. # cells counted = 20 # cells analyzed = 20 # cells karyotyped = 3 Band resolution: 400-450 01/20/2025 12:21 PM EDT [facility] Pathologist Signature Reviewed by: Corey Tejada 01/20/2025 12:21 PM EDT [facility] Bone Marrow Non-blood Collection / Unknown 01/12/2025 9:55 AM EDT 01/12/2025 12:37 PM EDT us New Mckinney MD LAB CYTOGENETICS ORDERABLES F inal Result [facility] [address] [place] [address] * Leukemia/Lymphoma - Immunophenotyping by Flow Cytometry (01/12/2025 9:55 AM EDT) Clinical Indication MDS 01/12/2025 4:19 PM EDT [facility] Flow Cytometry Interpretation APPROXIMATELY 27% MYELOID BLASTS EXPRESSING CD34, CD117, VARIABLE CD33, PARTIAL CD56, VARIABLE HLA-DR, PARTIAL DIM CD7, CD38 AND DIM CD45, SEE COMMENT, BBONE MARROW ASPIRATE. 01/12/2025 4:19 PM EDT [facility] Comments Specimen viability is [...] surface light chains 01/12/2025 4:19 PM EDT [facility] Disclaimer This test was developed and its [...] clinical laboratory testing. 01/12/2025 4:19 PM EDT [facility] Pathologist Signature Reviewed by: Asad Hartman MD 01/12/2025 4:19 PM EDT [facility] MRD Indicated Test Not Indicated 4:19 PM EDT [facility] Bone Marrow Specimen from bone marrow obtained by aspiration / Unknown Non-blood Collection / Unknown 01/12/2025 9:55 AM EDT 01/12/2025 1:48 PM EDT us New Mckinney MD LAB FLOW CYTOMETRY ORDERABLES Final Result [facility] [address] [place] [address] * Bone marrow exam (01/12/2025 9:55 AM EDT) Case Report Bone Marrow Case: [id number] Authorizing Provider: New Mckinney MD Collected: 01/12/2025 0955 Ordering Location: [facility] Hematology/BMT and Received: 01/12/2025 1143 Cellular Therapy Program Pathologist: Asad Hartman MD Specimens: A) - Bone Marrow Aspirate, left B) - Bone Marrow Biopsy, left C) - Peripheral Blood for Bone Marrow 5:16 PM EDT [facility] Cytogenetics Report, Addendum Chromosome Analysis Result: Giemsa-banded metaphase cells from unstimulated bone marrow cultures showed the following chromosome pattern: 43~44,X,-X,add(5)( q23),del(5)(q13q33 ),todd(7)ins?(7)(q1 1.2q11.2)t(7;12)(q 11.2;q13),-12,todd( 17)add(17)(p13.2)a dd(17)(q21)[16]/88 ,XX,idemx2[cp3]/46 ,XY[1] Interpretation: Abnormal female chromosome analysis. 95% of metaphase cells analyzed showed clonal abnormalities consistent with this patient's previous abnormal results (see [facility]-[id number]). 5:16 PM EDT [facility] Addendum electronically signed by Asad Hartman MD on 01/23/2025 at 1716 EDT Final Diagnosis PERIPHERAL BLOOD AND BONE MARROW, LEFT POSTERIOR ILIAC CREST, (PERIPHERAL SMEAR, ASPIRATE SMEAR, AND CORE BIOPSY): - HYPOCELLULAR BONE MARROW WITH MARKEDLY DECREASED MEGAKARYOCYTES, DECREASED MATURING GRANULOPOIESIS, APPROXIMATELY 7-10% VARIABLY DISTRIBUTED BLASTS AND MORE THAN 50% RING SIDEROBLASTS, SEE COMMENT. 5:16 PM EDT [facility] at 0941 EDT Comment The discrepancy between blasts percentage by morphologic assessment and flow cytometric analysis is due to erythroid precursors that constitute majority of bone marrow cellularity and are removed by flow cytometry. 5:16 PM EDT [facility] Clinical Information MDS 01/14 5:16 PM EDT [facility] CBC and Differential PERIPHERAL [...] cells. Platelets are decreased. 5:16 PM EDT [facility] Bone Marrow Differential BONE MARROW DIFFERENTIAL: 300 cells Normal Patient Neutrophils 15-50 12 Metamyelocytes 4-19 0 Myelocytes 1-18 1 Promyelocytes 1-8 0 Blasts 0-2 7 Monocytes 0-5 7 Erythroid 16-38 61 Lymphocytes 3-24 7 Eosinophils 0-6 3 Basophils 0-2 0 Plasma cells 0-4 2 Other 5:16 PM T [facility] Aspirate Smear The bone [...] 50% of erythroid precursors. 5:16 PM T [facility] Core Biopsy CELLULARITY: Variably [...] Bony trabeculae are normal. 5:16 PM T [facility] Special and Immunohistochemical Stains [...] developed by and are performed at the [facility], [address] [place] [address]. All tests reported here, except those addressing [...] negativity on decalcified specimens. 5:16 PM T [facility] Flow Cytometry Interpretation Flow cytometric analysis demonstrates approximately 27% population of myeloid blasts in this patient with history of myelodysplastic syndrome; expressing CD34, CD117, variable CD33, partial CD56, variable HLA-DR, partial dim CD7, CD38 and dim CD45 ([id number]). 5:16 PM T [facility] Gross Description B. LEFT A single specimen is received in formalin labeled bone marrow biopsy left posterior iliac crest and consists of 1 piece(s) of red/white tissue measuring 0.9 cm in length 0.2 cm in diameter. The specimen is submitted in to Histology for decalcification and routine processing. Cold Time: <1m 5:16 PM [facility] Note: A resident was involved in the service. I attest I examined the relevant preparations for the specimens and confirmed the diagnosis or interpretation. 5:16 PM T [facility] Bone Marrow Peripheral blood [...] PATHOLOGY ORDERABLES Edit ed Result - Final [facility] [address] [place] [address] * (ABNORMAL) CBC and Differential (01/12/2025 9:15 AM EDT) WBC Count 1.31(L) 3.70 - 10.30 10*3/uL LAB HEMATOLOGY METHOD 01/12/2025 9:58 AM EDT [facility] RBC Count 2.70(L) 3.90 - 5.20 10*6/uL LAB HEMATOLOGY METHOD 01/12/2025 9:58 AM EDT [facility] HGB 8.4(L) 11.2 - 15.7 g/dL LAB HEMATOLOGY METHOD 01/12/2025 9:58 AM EDT [facility] HCT 25.0(L) 34.0 - 45.0 % LAB HEMATOLOGY METHOD 01/12/2025 9:58 AM EDT [facility] Platelet Count 31(L) 155 - 369 10*3/uL LAB HEMATOLOGY METHOD 01/12/2025 9:58 AM EDT [facility] MCV 93 79 - 98 fL LAB HEMATOLOGY METHOD 01/12/2025 9:58 AM EDT [facility] MCH 31.1 26.0 - 32.0 pg LAB HEMATOLOGY METHOD 01/12/2025 9:58 AM EDT [facility] MCHC 33.6 30.7 - 35.5 g/dL LAB HEMATOLOGY METHOD 01/12/2025 9:58 AM EDT [facility] RDW 20.0(H) 11.5 - 14.5 % LAB HEMATOLOGY METHOD 01/12/2025 9:58 AM EDT [facility] MPV 8.8 8.8 - 12.5 fL LAB HEMATOLOGY METHOD 01/12/2025 9:58 AM EDT [facility] nRBC 3.1(H) <=0.0 per 100 WBCs LAB HEMATOLOGY METHOD 01/12/2025 9:58 AM EDT [facility] Differential Type Automated LAB HEMATOLOGY METHOD 01/12/2025 9:58 AM EDT [facility] Neutrophils % 19 % LAB HEMATOLOGY METHOD 01/12/2025 9:58 AM EDT [facility] Lymphocytes % 64 % LAB HEMATOLOGY METHOD 01/12/2025 9:58 AM EDT [facility] Monocytes % 15 % LAB HEMATOLOGY METHOD 01/12/2025 9:58 AM EDT [facility] Eosinophils % 2 % LAB HEMATOLOGY METHOD 01/12/2025 9:58 AM EDT [facility] Basophils % 0 % LAB HEMATOLOGY METHOD 01/12/2025 9:58 AM EDT [facility] Immature Granulocytes % 0 % LAB HEMATOLOGY METHOD 01/12/2025 9:58 AM EDT [facility] Neutrophils Absolute 0.25(LL) 1.60 - 6.10 10*3/uL LAB HEMATOLOGY METHOD 01/12/2025 9:58 AM EDT [facility] Lymphocytes Absolute 0.84(L) 1.20 - 3.90 10*3/uL LAB HEMATOLOGY METHOD 01/12/2025 9:58 AM EDT [facility] Monocytes Absolute 0.20(L) 0.30 - 0.90 10*3/uL LAB HEMATOLOGY METHOD 01/12/2025 9:58 AM EDT [facility] Eosinophils Absolute 0.02 0.00 - 0.50 10*3/uL LAB HEMATOLOGY METHOD 01/12/2025 9:58 AM EDT [facility] Basophils Absolute 0.00 0.00 - 0.10 10*3/uL LAB HEMATOLOGY METHOD 01/12/2025 9:58 AM EDT [facility] Immature Granulocytes Absolute 0.00 0.00 - 0.06 10*3/uL LAB HEMATOLOGY METHOD 01/12/2025 9:58 AM EDT [facility] Blood Blood sample taken from central line / Unknown (Port) Long-term Catheter / Unknown 01/12/2025 9:15 AM EDT 01/12/2025 9:31 AM EDT [facility] - 01/12/2025 9:58 AM EDT Therapeutic decision making should be based on absolute values, rather than percentages. us New Mckinney MD LAB BLOOD ORDERABLES Final Re sult [facility] [address] [place] [address] * (ABNORMAL) Comprehensive Metabolic Panel, Plasma (01/12/2025 9:15 AM EDT) Glucose, Plasma 121(H) 74 - 99 mg/dL 01/12/2025 10:02 AM EDT [facility] BUN, Plasma 24(H) 8 - 23 mg/dL 01/12/2025 10:02 AM EDT [facility] Creatinine, Plasma 1.19(H) 0.60 - 1.10 mg/dL 01/12/2025 10:02 AM EDT [facility] BUN/Creatinine Ratio 20 01/12/2025 10:02 AM EDT [facility] Sodium, Plasma 138 136 - 145 mmol/L 01/12/2025 10:02 AM EDT [facility] Potassium, Plasma 3.9 3.6 - 4.9 mmol/L 01/12/2025 10:02 AM EDT [facility] Chloride, Plasma 105 97 - 107 mmol/L 01/12/2025 10:02 AM EDT [facility] CO2, Plasma 21(L) 22 - 29 mmol/L 01/12/2025 10:02 AM EDT [facility] Anion Gap 12 6 - 16 mmol/L 01/12/2025 10:02 AM EDT [facility] Total Calcium, Plasma 9.7 8.9 - 10.2 mg/dL 01/12/2025 10:02 AM EDT [facility] Total Protein 6.1(L) 6.3 - 7.9 g/dL 01/12/2025 10:02 AM EDT [facility] Albumin, Plasma 3.9 3.5 - 5.2 g/dL 01/12/2025 10:02 AM EDT [facility] AST, Plasma 28 10 - 35 U/L 01/12/2025 10:02 AM EDT [facility] ALT, Plasma 12 10 - 35 U/L 01/12/2025 10:02 AM EDT [facility] Alkaline Phosphatase, Plasma 43(L) 46 - 142 U/L 01/12/2025 10:02 AM EDT [facility] Total Bilirubin, Plasma 0.5 0.2 - 1.1 mg/dL 01/12/2025 10:02 AM EDT [facility] eGFRcr 48.1 mL/min/1.7 3m*2 01/12/2025 10:02 AM EDT [facility] Comment:Reported eGFRcr in m L/min/1.73m2 is based the CKD-EPI 2020 equation that does not use a race coefficient. Blood Blood sample taken from central line / Unknown (Port) Long-term Catheter / Unknown 01/12/2025 9:15 AM EDT 01/12/2025 9:33 AM EDT us New Mckinney MD LAB BLOOD ORDERABLES Final Re sult [facility] [address] [place] [address] documented in this encounter Visit Diagnoses Diagnosis [...] of this encounter Care Teams Regulatory Affairs Intern Relationship Specialty Start Date End Date Jevon Vazquez MD [address] [place] [address] #1 #1 [place] [phone] PCP - General 03/23/22 documented as of this encounter
--- OUTSIDE RECORDS SUMMARY | 2025-01-27 15:00 | XMS_ITS | Encounter Summary ---
Author Organization Healthcare Address [address] [place] [address] Care Team Providers Care Machine Bobbin Winder Name Role Phone Jevon Vazquez MD Primary Care Provider [phone] Reason for Visit * Reason Comments Labs Port Flush Encounter Details Date Type Department Care Team ([facility] Contact Info) Description 01/27/2025 3:00 PM EDT Clinical Support [facility] Hematology/BMT and Cellular Therapy Program [address] [place] [phone] Oscar Cortez RN Arrived Social History Tobacco Use Types Packs/Day [...] Encounters Date Type Department Care Team ([facility] Contact Info) Description 03/03/2025 1:00 PM EST Clinical Support [facility] Hematology/BMT and Cellular Therapy Program [address] [phone] 03/03/2025 1:30 PM EST Office Visit [facility]ology/BMT and Cellular Therapy Program [address] [phone] Zonia Hoffman, HUMAN RESOURCES GENERALIST 800 [facility] [address] [place] [phone] documented as of this encounter Visit Diagnoses Not on filedocumented in this encounter Additional Health Concerns Assessment Noted Time A fall risk assessment has been complete d for the patient 01/27/2025 3:25 PM EDT A Body Mass Index follow-up plan has been documented for the patient 05/28/2024 1:52 PM EST documented as of this encounter Care Teams Machine Bobbin Winder Relationship Specialty Start Date End Date Jevon Vazquez MD [address] [place] [address] #1 #1 [place] [address] PCP - General 03/23/22 documented as of this encounter
--- OUTSIDE RECORDS SUMMARY | 2025-01-27 15:30 | XMS_ITS | Encounter Summary ---
Author Organization [facility] Address 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) New Mckinney MD [address] [address] Phone: tel: fax: Referral ID Status Reason Start Date Expiration Date V isits Requested Visits Authorized [id number] Authorized 04/16/2024 01/27/2026 1 1 * Consultation (Urgent) - Authorized Specialty Diagnoses / Procedures Referred By Contac t Referred To Contact Medical Oncology Diagnoses 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) New Mckinney MD [address] [address] Phone: tel: fax: [address] [address] Phone: tel: Referral ID Status Reason Start Date Expiration Date Visits Requested Visits Authorized [id number] Authorized Specialty Services Required 07/29/2026 1 1 * Consultation (Urgent) - Authorized Specialty Diagnoses / Procedures Referred By Contac t Referred To Contact Medical Oncology Diagnoses 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) New Mckinney MD 800 [facility] [address] [address] Phone: tel: fax: [facility] [address] [place] [address] Phone: tel: Referral ID Status Reason Start Date Expiration Date Visits Requested Visits Authorized [id number] Authorized Specialty Services Required 07/29/2026 1 1 Encounter Details Date Type Department Care Team ([facility] st Contact Info) Description 01/27/2025 3:30 PM EDT Office Visit [facility] Hematology/BMT and Cellular Therapy Program [address] [place] [address] New Mckinney MD 800 [facility] [address] [place] [phone] Acute myeloid leukemia not having achieved remission [...] encounter Miscellaneous Notes * Progress Notes - Judit Higuera, PharmD [...] [facility]) Description 03/03/2025 1:00 PM EST Clinical Support [facility] Hematology/BMT and Cellular Therapy Program [address] [place] [address] 03/03/2025 1:30 PM EST Office Visit [facility] Hematology/BMT and Cellular Therapy Program [address] [place] [address] Zonia Hoffman, ORTHOPHOTOGRAPHY TECHNICIAN 800 [facility] [address] [place] [phone] Scheduled Referrals Name Type Priority Associated Diagnoses [...] - 99 mg/dL 01/27/2025 4:26 PM EDT [facility] BUN, Plasma 22 8 - 23 mg/dL 01/27/2025 4:26 PM EDT [facility] Creatinine, Plasma 1.10 0.60 - 1.10 mg/dL 01/27/2025 4:26 PM EDT [facility] BUN/Creatinine Ratio 20 01/27/2025 4:26 PM EDT [facility] Sodium, Plasma 138 136 - 145 mmol/L 01/27/2025 4:26 PM EDT [facility] Potassium, Plasma 4.6 3.6 - 4.9 mmol/L 01/27/2025 4:26 PM EDT [facility] Chloride, Plasma 106 97 - 107 mmol/L 01/27/2025 4:26 PM EDT [facility] CO2, Plasma 22 22 - 29 mmol/L 01/27/2025 4:26 PM EDT [facility] Anion Gap 10 6 - 16 mmol/L 01/27/2025 4:26 PM EDT [facility] Total Calcium, Plasma 9.6 8.9 - 10.2 mg/dL 01/27/2025 4:26 PM EDT [facility] Total Protein 6.2(L) 6.3 - 7.9 g/dL 01/27/2025 4:26 PM EDT [facility] Albumin, Plasma 3.9 3.5 - 5.2 g/dL 01/27/2025 4:26 PM EDT [facility] AST, Plasma 33 10 - 35 U/L 01/27/2025 4:26 PM EDT [facility] ALT, Plasma 11 10 - 35 U/L 01/27/2025 4:26 PM EDT [facility] Alkaline Phosphatase, Plasma 43(L) 46 - 142 U/L 01/27/2025 4:26 PM EDT [facility] Total Bilirubin, Plasma 0.5 0.2 - 1.1 mg/dL 01/27/2025 4:26 PM EDT [facility] eGFRcr 52.8 mL/min/1.7 3m*2 01/27/2025 4:26 PM EDT [facility] Comment:Reported eGFRcr in m L/min/1.73m2 is based the CKD-EPI 2020 equation that does not use a race coefficient. Blood Blood sample taken from central line / Unknown (Port) Long-term Catheter / Unknown 01/27/2025 3:00 PM EDT 01/27/2025 3:54 PM EDT us New Mckinney MD LAB BLOOD ORDERABLES Final Re sult [facility] [address] [place] [address] * (ABNORMAL) CBC and Differential (01/27/2025 3:00 PM EDT) WBC Count 1.22(L) 3.70 - 10.30 10*3/uL LAB HEMATOLOGY METHOD 01/27/2025 3:21 PM EDT [facility] RBC Count 2.90(L) 3.90 - 5.20 10*6/uL LAB HEMATOLOGY METHOD 01/27/2025 3:21 PM EDT [facility] HGB 8.9(L) 11.2 - 15.7 g/dL LAB HEMATOLOGY METHOD 01/27/2025 3:21 PM EDT [facility] HCT 26.3(L) 34.0 - 45.0 % LAB HEMATOLOGY METHOD 01/27/2025 3:21 PM EDT [facility] Platelet Count 23(L) 155 - 369 10*3/uL LAB HEMATOLOGY METHOD 01/27/2025 3:21 PM EDT [facility] MCV 91 79 - 98 fL LAB HEMATOLOGY METHOD 01/27/2025 3:21 PM EDT [facility] MCH 30.7 26.0 - 32.0 pg LAB HEMATOLOGY METHOD 01/27/2025 3:21 PM EDT [facility] MCHC 33.8 30.7 - 35.5 g/dL LAB HEMATOLOGY METHOD 01/27/2025 3:21 PM EDT [facility] RDW 17.7(H) 11.5 - 14.5 % LAB HEMATOLOGY METHOD 01/27/2025 3:21 PM EDT [facility] MPV 9.0 8.8 - 12.5 fL LAB HEMATOLOGY METHOD 01/27/2025 3:21 PM EDT [facility] nRBC 2.5(H) <=0.0 per 100 WBCs LAB HEMATOLOGY METHOD 01/27/2025 3:21 PM EDT [facility] Differential Type Automated LAB HEMATOLOGY METHOD 01/27/2025 3:21 PM EDT [facility] Neutrophils % 9 % LAB HEMATOLOGY METHOD 01/27/2025 3:21 PM EDT [facility] Lymphocytes % 78 % LAB HEMATOLOGY METHOD 01/27/2025 3:21 PM EDT [facility] Monocytes % 12 % LAB HEMATOLOGY METHOD 01/27/2025 3:21 PM EDT [facility] Eosinophils % 1 % LAB HEMATOLOGY METHOD 01/27/2025 3:21 PM EDT [facility] Basophils % 0 % LAB HEMATOLOGY METHOD 01/27/2025 3:21 PM EDT [facility] Immature Granulocytes % 0 % LAB HEMATOLOGY METHOD 01/27/2025 3:21 PM EDT [facility] Neutrophils Absolute 0.11(LL) 1.60 - 6.10 10*3/uL LAB HEMATOLOGY METHOD 01/27/2025 3:21 PM EDT [facility] Lymphocytes Absolute 0.95(L) 1.20 - 3.90 10*3/uL LAB HEMATOLOGY METHOD 01/27/2025 3:21 PM EDT [facility] Monocytes Absolute 0.15(L) 0.30 - 0.90 10*3/uL LAB HEMATOLOGY METHOD 01/27/2025 3:21 PM EDT [facility] Eosinophils Absolute 0.01 0.00 - 0.50 10*3/uL LAB HEMATOLOGY METHOD 01/27/2025 3:21 PM EDT [facility] Basophils Absolute 0.00 0.00 - 0.10 10*3/uL LAB HEMATOLOGY METHOD 01/27/2025 3:21 PM EDT [facility] Immature Granulocytes Absolute 0.00 0.00 - 0.06 10*3/uL LAB HEMATOLOGY METHOD 01/27/2025 3:21 PM EDT [facility] Blood Blood sample taken from central line / Unknown (Port) Long-term Catheter / Unknown 01/27/2025 3:00 PM EDT 01/27/2025 3:12 PM EDT Narrative [facility] - 01/27/2025 3:21 PM EDT Therapeutic decision making should be based on absolute values, rather than percentages. us New Mckinney MD LAB BLOOD ORDERABLES Final Re sult [facility] [address] [place] [address] documented in this encounter Visit Diagnoses Diagnosis [...] as of this encounter Care Teams Solar Hot Water Installer Relationship Specialty Start Date End Date Jevon Vazquez MD [address] [place] [address] [address] [place] [address] PCP - General 03/23/22 documented as of this encounter
[2025-01-29] VITALS (7 sets, daily range): BP systolic 112–126; BP diastolic 49–60; PULSE 73–80; RESP 16; TEMP 36.4–36.6; O2SAT 97; BMI 21.8
--- OUTSIDE RECORDS SUMMARY | 2025-01-29 09:09 | XMS_ITS | Encounter Summary ---
Author Organization [facility] Address [address] [place] [address] Care Team Providers Care Pigment And Lacquer Mixer Name Role Phone Jevon Vazquez MD Primary Care Provider [phone] Reason for Visit * Reason Comments Med Refill Encounter Details Date Type Department Care Team ([facility] Contact Info) Description 12/09/2024 Refill [facility] Hematology/BMT and Cellular Therapy Program [address] [phone] Zonia Hoffman, OIL RIG ROUGHNECK 800 [facility] [address] [place] [phone] Social History Tobacco Use Types Packs/Day Years [...] Upcoming Encounters Date Type Department Care Team ([facility] Contact Info) Description 03/03/2025 1:00 PM EST Clinical Support [facility] Hematology/BMT and Cellular Therapy Program [address] [phone] 03/03/2025 1:30 PM EST Office Visit [facility] Hematology/BMT and Cellular Therapy Program [address] [phone] Zonia Hoffman, OIL RIG ROUGHNECK 800 [facility] [address] [place] [address] documented as of this encounter Visit Diagnoses Not on filedocumented in this encounter Additional Health Concerns Assessment Noted Time A fall risk assessment has been complete d for the patient 09/30/2024 9:33 AM EDT A Body Mass Index follow-up plan has been documented for the patient 05/28/2024 1:52 PM EST documented as of this encounter Care Teams Pigment And Lacquer Mixer Relationship Specialty Start Date End Date Jevon Vazquez MD [address] [place] [address] [address] [place] [address] PCP - General 03/23/22 documented as of this encounter
--- OUTSIDE RECORDS SUMMARY | 2025-01-29 09:09 | XMS_ITS | Encounter Summary ---
Author Organization Healthcare Address [address] [place] [address] Care Team Providers Care Arc Trimmer Name Role Phone Jevon Vazquez MD Primary Care Provider [phone] Encounter Details Date Type Department Care Team [...] Upcoming Encounters Date Type Department Care Team ( st Contact Info) Description 03/03/2025 1:00 PM EST Clinical Support [facility] Hematology/BMT and Cellular Therapy Program [address] [phone] 03/03/2025 1:30 PM EST Office Visit [facility] Hematology/BMT and Cellular Therapy Program [address] [address] Zonia Hoffman, ICING COATER 800 [facility] [address] [place] [phone] documented as of this encounter Visit Diagnoses Not on filedocumented in this encounter Additional Health Concerns Assessment Noted Time A fall risk assessment has been complete d for the patient 09/30/2024 9:33 AM EDT A Body Mass Index follow-up plan has been documented for the patient 05/28/2024 1:52 PM EST documented as of this encounter Care Teams Arc Trimmer Relationship Specialty Start Date End Date Jevon Vazquez MD [address] [place] [address] [address] [place] [address] PCP - General 03/23/22 documented as of this encounter
--- OUTSIDE RECORDS SUMMARY | 2025-01-29 09:09 | XMS_ITS ---
Author Organization Healthcare Address [address] [place] [address] Care Team Providers Care Mailing Manager Name Role Phone Jevon Vazquez MD Primary Care Provider [phone] Active Problems Problem Noted Date Diagnosed Date 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 Current Treatment and Therapy Plans (HEM) Outpatient Electrolyte Replacement Protocol* Plan Start Date:02/06/2024 Plan Provider:New Mckinney MD Linked Problems Acute myeloid leukemia not h aving achieved remission (CMS/HCC) Treatment Medications No medications scheduled. HEM/BMT Blood Administration for Outpatient* Plan Start Date:02/07/2024 Plan Provider:New Mckinney MD Linked Problems Acute myeloid leukemia not h aving achieved remission (CMS/HCC) Treatment Medications No medications scheduled. Past Treatment and Therapy Plans Oncology Treatment Plan Name Start Date Discontinue Date Treatment Medications Discontinue Reason Plan Provider Cycles Azacitidine Daily x 7 / Venetoclax Every 28 Days 02/05/20 24 01/27/2025 azaCITIDine (Vidaza)azaCITIDi ne (Vidaza) IVPBvenetoclax (Venclexta) Progression New Mckinney MD 2 of 24 cycles started Lifetime Dose Tracking * Chemical Lifetime Dose Automatic Entry Manual Entr y Fluoro Time 0.4 minutes 0.4 minutes 0 minutes Air Kerma 3 mGy 3 mGy 0 mGy CTDIvol 72.2 mGy 72.2 mGy 0 mGy Air Kerma Area Product 62.29 Gym 62.29 Gym 0 Gym Radiation (DLP) 280 mGy-cm 280 mGy-cm 0 mGy-cm
--- OUTSIDE RECORDS SUMMARY | 2025-01-29 09:09 | XMS_ITS | Encounter Summary ---
Author Organization Healthcare Address [address] [place] [address] Care Team Providers Care Vp Of Marketing Name Role Phone Jevon Vazquez MD Primary Care Provider [phone] Encounter Details Date Type Department Care Team [...] Care Team (Late st Contact Info) Description 03/03/2025 1:00 PM EST Clinical Support [facility] Hematology/BMT and Cellular Therapy Program [address] [address] 03/03/2025 1:30 PM EST Office Visit [facility] Hematology/BMT and Cellular Therapy Program [address] [phone] Zonia Hoffman, BANKING CONSULTANT 800 [facility] [address] [place] [phone] documented as of this encounter Visit Diagnoses Not on filedocumented in this encounter Additional Health Concerns Assessment Noted Time A fall risk assessment has been complete d for the patient 09/30/2024 9:33 AM EDT A Body Mass Index follow-up plan has been documented for the patient 05/28/2024 1:52 PM EST documented as of this encounter Care Teams Vp Of Marketing Relationship Specialty Start Date End Date Jevon Vazquez MD [address] [place] [address] [address] [place] [address] PCP - General 03/23/22 documented as of this encounter
--- OUTSIDE RECORDS SUMMARY | 2025-01-29 09:09 | XMS_ITS | Encounter Summary ---
Author Organization Healthcare Address [address] [place] [address] Care Team Providers Care Chief Information Officer Name Role Phone Jevon Vazquez MD Primary Care Provider Encounter Details Date Type Department Care Team (Late Contact Info) Description 01/16/2025 Telephone [facility] Hematology/BMT and Cellular Therapy Program [address] [place] [address] [place] [address] Daxa Elliott RN [facility] Social History Tobacco Use [...] Hematology/BMT and Cellular Therapy Program [address] [place] [address] 03/03/2025 1:30 PM EST Office Visit [facility] Hematology/BMT and Cellular Therapy Program 750 [facility] [place] [phone] Zonia Hoffman, INJECTION MOLDING SUPERVISOR 800 [facility] [address] [place] [phone] documented as of this encounter Visit Diagnoses Not on filedocumented in this encounter Additional Health Concerns Assessment Noted Time A fall risk assessment has been complete d for the patient 09/30/2024 9:33 AM EDT A Body Mass Index follow-up plan has been documented for the patient 05/28/2024 1:52 PM EST documented as of this encounter Care Teams Chief Information Officer Relationship Specialty Start Date End Date Jevon Vazquez MD [address] [place] [address] [address] [place] [address] PCP - General 03/23/22 documented as of this encounter
--- OUTSIDE RECORDS SUMMARY | 2025-01-29 09:09 | XMS_ITS | Encounter Summary ---
Author Organization Healthcare Address [address] [place] [address] Care Team Providers Care Technical Report Writer Name Role Phone Jevon Vazquez MD Primary Care Provider [phone] Encounter Details Date Type Department Care Team [...] Hematology/BMT and Cellular Therapy Program [address] [phone] 03/03/2025 1:30 PM EST Office Visit [facility] Hematology/BMT and Cellular Therapy Program [address] [phone] Zonia Hoffman, WOOD BARKER 800 [facility] [address] [place] [phone] documented as of this encounter Visit Diagnoses Not on filedocumented in this encounter Additional Health Concerns Assessment Noted Time A fall risk assessment has been complete d for the patient 09/30/2024 9:33 AM EDT A Body Mass Index follow-up plan has been documented for the patient 05/28/2024 1:52 PM EST documented as of this encounter Care Teams Technical Report Writer Relationship Specialty Start Date End Date Jevon Vazquez MD [address] [place] [address] [address] [place] [address] PCP - General 03/23/22 documented as of this encounter
--- OUTSIDE RECORDS SUMMARY | 2025-01-29 09:09 | XMS_ITS | Encounter Summary ---
Author Organization Healthcare Address [address] [place] [address] Care Team Providers Care Pie Bottomer Name Role Phone Jevon Vazquez MD Primary Care Provider [phone] Encounter Details Date Type Department Care Team ([facility] Contact Info) Description 12/11/2024 Telephone [facility] Hematology/BMT and Cellular Therapy Program [address] [phone] New Mckinney MD [address] [facility] [address] [place] [phone] Social History Tobacco Use Types Packs/Day Years [...] PM EDT Rn uploaded recent labs to [facility]inkle and rescheduled appointments to 12/30. RN returned call to patient with updated plan of care and schedule. documented in this encounter Plan of Treatment Upcoming Encounters Date Type Department Care Team (Late Contact Info) Description 03/03/2025 1:00 PM EST Clinical Support [facility] Hematology/BMT and Cellular Therapy Program [address] [place] [address] 03/03/2025 1:30 PM EST Office Visit [facility] Hematology/BMT and Cellular Therapy Program [address] [place] [address] Zonia Hoffman, TRAVEL NURSE 800 [facility] [address] [place] [phone] documented as of this encounter Visit Diagnoses Not on filedocumented in this encounter Additional Health Concerns Assessment Noted Time A fall risk assessment has been complete d for the patient 09/30/2024 9:33 AM EDT A Body Mass Index follow-up plan has been documented for the patient 05/28/2024 1:52 PM EST documented as of this encounter Care Teams Pie Bottomer Relationship Specialty Start Date End Date Jevon Vazquez MD [address] [place] [address] [address] [place] [address] PCP - General 03/23/22 documented as of this encounter
--- OUTSIDE RECORDS SUMMARY | 2025-01-29 09:09 | XMS_ITS | Encounter Summary ---
Author Organization [facility] Address [address] [place] [address] Care Team Providers Care Inspector Precision Assembly Name Role Phone Jevon Vazquez MD Primary Care Provider [phone] Reason for Visit * Reason Comments Med Refill Encounter Details Date Type Department Care Team ([facility] Contact Info) Description 01/30/2024 Refill [facility] Hematology/BMT and Cellular Therapy Program [address] [phone] New Mckinney MD 800 [facility] [address] [place] [phone] Social History Tobacco Use Types Packs/Day Years [...] Type Department Care Team ([facility] Contact Info) Description 03/03/2025 1:00 PM EST Clinical Support [facility] Hematology/BMT and Cellular Therapy Program [address] [phone] 03/03/2025 1:30 PM EST Office Visit [facility] Hematology/BMT and Cellular Therapy Program [address] [phone] Zonia Hoffman, STEAMER TENDER 800 [facility] [address] [place] [address] documented as of this encounter Visit Diagnoses Not on filedocumented in this encounter Additional Health Concerns Assessment Noted Time A fall risk assessment has been complete d for the patient 01/11/2024 9:16 AM EDT A Body Mass Index follow-up plan has been documented for the patient 01/21/2024 6:16 AM EDT documented as of this encounter Care Teams Inspector Precision Assembly Relationship Specialty Start Date End Date Jevon Vazuqez MD [address] [place] [address] [address] [place] [address] PCP - General 03/23/22 documented as of this encounter
--- OUTSIDE RECORDS SUMMARY | 2025-01-29 09:09 | XMS_ITS | Encounter Summary ---
Author Organization [facility] Address [address] [place] [address] Care Team Providers Care Metal Tile Lather Name Role Phone Jevon Vazquez MD Primary Care Provider [phone] Encounter Details Date Type Department Care Team ([facility] Contact Info) Description 01/07/2025 Telephone [facility] Hematology/BMT and Cellular Therapy Program [address] [phone] Sabine Clemons MD 800 [facility] [address] [place] [phone] Social History Tobacco Use Types Packs/Day Years [...] [facility] Description 03/03/2025 1:00 PM EST Clinical Support [facility] Hematology/BMT and Cellular Therapy Program [address] [phone] 03/03/2025 1:30 PM EST Office Visit [facility] Hematology/BMT and Cellular Therapy Program [address] [phone] Zonia Hoffman, COMPUTER CONSULTANT 800 [facility] [address] [place] [address] documented as of this encounter Visit Diagnoses Not on filedocumented in this encounter Additional Health Concerns Assessment Noted Time A fall risk assessment has been complete d for the patient 09/30/2024 9:33 AM EDT A Body Mass Index follow-up plan has been documented for the patient 05/28/2024 1:52 PM EST documented as of this encounter Care Teams Metal Tile Lather Relationship Specialty Start Date End Date Jevon Vazquez MD [address] [place] [address] [address] [place] [address] PCP - General 03/23/22 documented as of this encounter
--- OUTSIDE RECORDS SUMMARY | 2025-01-29 09:09 | XMS_ITS | Encounter Summary ---
Author Organization Healthcare Address [address] [place] [address] Care Team Providers Care Skip Miner Name Role Phone Jevon Vazquez MD Primary Care Provider [phone] Encounter Details Date Type Department Care Team [...] Hematology/BMT and Cellular Therapy Program [address] [address] 03/03/2025 1:30 PM EST Office Visit [facility] Hematology/BMT and Cellular Therapy Program [address] [phone] Zonia Hoffman, MEAT BUTCHER 800 [facility] [address] [place] [phone] documented as of this encounter Visit Diagnoses Not on filedocumented in this encounter Additional Health Concerns Assessment Noted Time A fall risk assessment has been complete d for the patient 09/30/2024 9:33 AM EDT A Body Mass Index follow-up plan has been documented for the patient 05/28/2024 1:52 PM EST documented as of this encounter Care Teams Skip Miner Relationship Specialty Start Date End Date Jevon Vazquez MD [address] [place] [address] [address]1 [address] [place] [address] PCP - General 03/23/22 documented as of this encounter
--- OUTSIDE RECORDS SUMMARY | 2025-01-29 09:10 | XMS_ITS | Encounter Summary ---
Author Organization [facility] Address [address] [place] [address] Care Team Providers Care Custodial Manager Name Role Phone Jevon Vazquez MD Primary Care Provider [phone] Reason for Visit * Reason Comments Med Refill Encounter Details Date Type Department Care Team ([facility] Contact Info) Description 01/05/2025 Refill [facility] Hematology/BMT and Cellular Therapy Program [address] [phone] Zonia Hoffman, INSTALLER MOLDING AND TRIM 800 [facility] [address] [place] [phone] Social History Tobacco Use Types Packs/Day Years [...] ([facility] Contact Info) Description 03/03/2025 1:00 PM EST Clinical Support [facility] Hematology/BMT and Cellular Therapy Program [address] [phone] 03/03/2025 1:30 PM EST Office Visit [facility] Hematology/BMT and Cellular Therapy Program [address] [phone] Zonia Hoffman, INSTALLER MOLDING AND TRIM 800 [facility] [address] [place] [address] documented as of this encounter Visit Diagnoses Not on filedocumented in this encounter Additional Health Concerns Assessment Noted Time A fall risk assessment has been complete d for the patient 09/30/2024 9:33 AM EDT A Body Mass Index follow-up plan has been documented for the patient 05/28/2024 1:52 PM EST documented as of this encounter Care Teams Custodial Manager Relationship Specialty Start Date End Date Jevon Vazquez MD [address] [place] [address] [address] [place] [address] PCP - General 03/23/22 documented as of this encounter
--- OUTSIDE RECORDS SUMMARY | 2025-01-29 09:10 | XMS_ITS | Encounter Summary ---
Author Organization Healthcare Address [address] [place] [address] Care Team Providers Care Prenatal Teacher Name Role Phone Jevon Vazquez MD Primary Care Provider [phone] Encounter Details Date Type Department Care Team (Latest Contact Info) Description 01/27/2025 Travel Social History Tobacco Use Types Packs/Day [...] Hematology/BMT and Cellular Therapy Program [address] [phone] 03/03/2025 1:30 PM EST Office Visit [facility] Hematology/BMT and Cellular Therapy Program [address] [phone] Zonia Hoffman, AUTO BODY PAINTER 800 [facility] [address] [place] [phone] documented as of this encounter Visit Diagnoses Not on filedocumented in this encounter Additional Health Concerns Assessment Noted Time A fall risk assessment has been complete d for the patient 01/27/2025 3:25 PM EDT A Body Mass Index follow-up plan has been documented for the patient 05/28/2024 1:52 PM EST documented as of this encounter Care Teams Prenatal Teacher Relationship Specialty Start Date End Date Jevon Vazquez MD [address] [place] [address] [address] [place] [address] PCP - General 03/23/22 documented as of this encounter
--- OUTSIDE RECORDS SUMMARY | 2025-01-29 09:10 | XMS_ITS | Encounter Summary ---
Author Organization [facility] Address [address] [place] [address] Care Team Providers Care Heddle Machine Operator Name Role Phone Jevon Vazquez MD Primary Care Provider [phone] Encounter Details Date Type Department Care Team ([facility] Contact Info) Description 01/27/2025 Telephone [facility] Hematology/BMT and Cellular Therapy Program [address] [place] [address] Alyson Vvias RN Social History Tobacco Use Types Packs/Day [...] encounter Miscellaneous Notes * Clinician Note - Alyson Vivas RN - 01/27/2025 4:05 PM EDT Critical Lab Results Facility: lab Primary Oncologist: Dr. Mckinney Notified Primary Onc RN: 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 RN Lab Value Action Taken ANC 0.11 documented in this encounter Plan of Treatment Upcoming Encounters Date Type Department Care Team ([facility] Contact Info) Description 03/03/2025 1:00 PM EST Clinical Support [facility] Hematology/BMT and Cellular Therapy Program [address] [place] [address] 03/03/2025 1:30 PM EST Office Visit [facility] Hematology/BMT and Cellular Therapy Program [address] [place] [phone] Zonia Hoffman, PUBLIC HEALTH INFORMATICIAN 800 [facility] [address] [place] [address] documented as of this encounter Visit Diagnoses Not on filedocumented in this encounter Additional Health Concerns Assessment Noted Time A fall risk assessment has been complete d for the patient 01/27/2025 3:25 PM EDT A Body Mass Index follow-up plan has been documented for the patient 05/28/2024 1:52 PM EST documented as of this encounter Care Teams Heddle Machine Operator Relationship Specialty Start Date End Date Jevon Vazquez MD [address] [place] [address] [address] [place] [address] PCP - General 03/23/22 documented as of this encounter
--- OUTSIDE RECORDS SUMMARY | 2025-01-29 09:10 | XMS_ITS | Encounter Summary ---
Author Organization Healthcare Address [address] [place] [address] Care Team Providers Care Mechanical Maintenance Worker Name Role Phone Jevon Vazquez MD Primary Care Provider [phone] Encounter Details Date Type Department Care Team [...] Hematology/BMT and Cellular Therapy Program [address] [phone] 03/03/2025 1:30 PM EST Office Visit [facility] Hematology/BMT and Cellular Therapy Program [address] [phone] Zonia Hoffman, CIRCULATION ASSISTANT 800 [facility] [address] [place] [phone] documented as of this encounter Visit Diagnoses Not on filedocumented in this encounter Additional Health Concerns Assessment Noted Time A fall risk assessment has been complete d for the patient 09/30/2024 9:33 AM EDT A Body Mass Index follow-up plan has been documented for the patient 05/28/2024 1:52 PM EST documented as of this encounter Care Teams Mechanical Maintenance Worker Relationship Specialty Start Date End Date Jevon Vazquez MD [address] [place] [address] [address] [place] [address] PCP - General 03/23/22 documented as of this encounter
--- OUTSIDE RECORDS SUMMARY | 2025-01-29 09:10 | XMS_ITS | Encounter Summary ---
Author Organization Healthcare Address [address] [place] [address] Care Team Providers Care Senior Linux Administrator Name Role Phone Jevon Vazquez MD Primary Care Provider [phone] Encounter Details Date Type Department Care Team [...] Hematology/BMT and Cellular Therapy Program [address] [phone] 03/03/2025 1:30 PM EST Office Visit [facility] Hematology/BMT and Cellular Therapy Program [address] [phone] Zonia Hoffman, POT RUNNER 800 [facility] [address] [place] [phone] documented as of this encounter Visit Diagnoses Not on filedocumented in this encounter Additional Health Concerns Assessment Noted Time A fall risk assessment has been complete d for the patient 09/30/2024 9:33 AM EDT A Body Mass Index follow-up plan has been documented for the patient 05/28/2024 1:52 PM EST documented as of this encounter Care Teams Senior Linux Administrator Relationship Specialty Start Date End Date Jevon Vazquez MD [address] [place] [address] [address]1 [place] [address] PCP - General 03/23/22 documented as of this encounter
--- OUTSIDE RECORDS SUMMARY | 2025-01-29 09:10 | XMS_ITS | Encounter Summary ---
Author Organization [facility] Address [address] [place] [address] Care Team Providers Care Admitting Coordinator Name Role Phone Jevon Vazquez MD Primary Care Provider [phone] Reason for Visit * Reason Comments Med Refill Encounter Details Date Type Department Care Team ([facility] Contact Info) Description 01/07/2025 Refill [facility] Hematology/BMT and Cellular Therapy Program [address] [phone] Zonia Hoffman, RIFFLER TENDER 800 [facility] [address] [place] [phone] Social History Tobacco Use Types Packs/Day Years [...] Care Team ([facility] Contact Info) Description 03/03/2025 1:00 PM EST Clinical Support [facility] Hematology/BMT and Cellular Therapy Program [address] [phone] 03/03/2025 1:30 PM EST Office Visit [facility] Hematology/BMT and Cellular Therapy Program [address] [phone] Zonia Hoffman, RIFFLER TENDER 800 [facility] [address] [place] [address] documented as of this encounter Visit Diagnoses Not on filedocumented in this encounter Additional Health Concerns Assessment Noted Time A fall risk assessment has been complete d for the patient 09/30/2024 9:33 AM EDT A Body Mass Index follow-up plan has been documented for the patient 05/28/2024 1:52 PM EST documented as of this encounter Care Teams Admitting Coordinator Relationship Specialty Start Date End Date Jevon Vazquez MD [address] [place] [address] [address] [place] [address] PCP - General 03/23/22 documented as of this encounter
--- OUTSIDE RECORDS SUMMARY | 2025-01-29 09:10 | XMS_ITS | Encounter Summary ---
Author Organization Healthcare Address [address] [place] [address] Care Team Providers Care Livestock Buyer Name Role Phone Jevon Vazquez MD Primary Care Provider [phone] Encounter Details Date Type Department Care Team [...] Hematology/BMT and Cellular Therapy Program [address] [phone] 03/03/2025 1:30 PM EST Office Visit [facility] Hematology/BMT and Cellular Therapy Program [address] [phone] Zonia Hoffman, SCHOOL AIDE 800 [facility] [address] [place] [phone] documented as of this encounter Visit Diagnoses Not on filedocumented in this encounter Additional Health Concerns Assessment Noted Time A fall risk assessment has been complete d for the patient 09/30/2024 9:33 AM EDT A Body Mass Index follow-up plan has been documented for the patient 05/28/2024 1:52 PM EST documented as of this encounter Care Teams Livestock Buyer Relationship Specialty Start Date End Date Jevon Vazquez MD [address] [place] [address] [address]1 [address]1 [place] [address] PCP - General 03/23/22 documented as of this encounter
--- OUTSIDE RECORDS SUMMARY | 2025-01-29 09:10 | XMS_ITS | Encounter Summary ---
Author Organization Healthcare Address [address] [place] [address] Care Team Providers Care Sea Kayaking Guide Name Role Phone Jevon Vazquez MD Primary Care Provider [phone] Encounter Details Date Type Department Care Team [...] Hematology/BMT and Cellular Therapy Program [address] [phone] 03/03/2025 1:30 PM EST Office Visit [facility] Hematology/BMT and Cellular Therapy Program [address] [phone] Zonia Hoffman, MANAGER DATA WAREHOUSE 800 [facility] [address] [place] [phone] documented as of this encounter Visit Diagnoses Not on filedocumented in this encounter Additional Health Concerns Assessment Noted Time A fall risk assessment has been complete d for the patient 09/30/2024 9:33 AM EDT A Body Mass Index follow-up plan has been documented for the patient 05/28/2024 1:52 PM EST documented as of this encounter Care Teams Sea Kayaking Guide Relationship Specialty Start Date End Date Jevon Vazquez MD [address] [place] [address] #1 [address]1 [place] [address] PCP - General 03/23/22 documented as of this encounter
--- OUTSIDE RECORDS SUMMARY | 2025-01-29 09:10 | XMS_ITS | Encounter Summary ---
Author Organization Healthcare Address [address] [place] [address] Care Team Providers Care Accounts Receivable Processor Name Role Phone Jevon Vazquez MD Primary Care Provider [phone] Encounter Details Date Type Department Care Team ([facility] Contact Info) Description 12/29/2024 Telephone [facility] Hematology/BMT and Cellular Therapy Program [address] [phone] Bibiana Sepulveda, IT SUPPORT TECHNICIAN 800 [facility] [address] [place] [phone] Social History Tobacco Use Types Packs/Day Years [...] wants to repeat BMBx. She verbalizes understanding. Financial Services Technician made aware. documented in this encounter Plan of Treatment Upcoming Encounters Date Type Department Care Team ([facility] Contact Info) Description 03/03/2025 1:00 PM EST Clinical Support [facility] Hematology/BMT and Cellular Therapy Program [address] [place] [address] 03/03/2025 1:30 PM EST Office Visit PAV Hematology/BMT and Cellular Therapy Program [address] [place] [address] Zonia Hoffman, IT SUPPORT TECHNICIAN 800 [facility] [address] [place] [phone] documented as of this encounter Visit Diagnoses Not on filedocumented in this encounter Additional Health Concerns Assessment Noted Time A fall risk assessment has been complete d for the patient 09/30/2024 9:33 AM EDT A Body Mass Index follow-up plan has been documented for the patient 05/28/2024 1:52 PM EST documented as of this encounter Care Teams Accounts Receivable Processor Relationship Specialty Start Date End Date Jevon Vazquez MD [address] [place] [address] #1 [address]1 [place] [address] PCP - General 03/23/22 documented as of this encounter
--- OUTSIDE RECORDS SUMMARY | 2025-01-29 09:10 | XMS_ITS | Encounter Summary ---
Author Organization [facility] Address [address] [place] [address] Care Team Providers Care Pump Servicer Name Role Phone Jevon Vazquez MD Primary Care Provider [phone] Reason for Referral * Genetic Testing (Routine) - Closed Specialty Diagnoses / Procedures Referred By Rebecca Referred To Contact Lab Diagnoses Myelodysplastic syndrome (CMS/HCC) Procedures Cytogenetics Testing, Oncology New Mckinney MD [address] [address] Phone: tel: fax: Referral ID Status Reason Start Date Expiration Date Visits Re quested Visits Authorized [id number] Closed 12/29/2024 06/30/2026 1 1 * Genetic Testing (Routine) - Authorized Specialty Diagnoses / Procedures [facility] Referred To Contact Lab Diagnoses Myelodysplastic syndrome (CMS/HCC) Procedures Leukemia/Lymphoma - Immunophenotyping by Flow Cytometry New Mckinney MD 800 [facility] [address] [address] Phone: tel: fax: Referral ID Status Reason Start Date Expiration Date V isits Requested Visits Authorized [id number] Authorized 12/29/2024 06/30/2026 1 1 * Genetic Testing (Routine) - Authorized Specialty Diagnoses / Procedures [facility] Referred To Contact Lab Diagnoses Myelodysplastic syndrome (CMS/HCC) Procedures Bone marrow exam New Mckinney MD 800 [facility] [address] [place] [phone] Phone: tel: fax: Referral ID Status Reason Start Date Expiration Date V isits Requested Visits Authorized [id number] Authorized 12/29/2024 06/30/2026 1 1 Encounter Details Date Type Department Care Team ([facility] Contact Info) Description 12/29/2024 Orders Only [facility] Hematology/BMT and Cellular Therapy Program [address] [place] [address] New Mckinney MD 800 [facility] [address] [place] [phone] Myelodysplastic syndrome (CMS/HCC) (Primary Dx) Social [...] Hematology/BMT and Cellular Therapy Program [address] [place] [address] 03/03/2025 1:30 PM EST Office Visit [facility] Hematology/BMT and Cellular Therapy Program [address] [place] [address] Zonia Hoffman APRN 800 [facility] [address] [address] documented as of this encounter Results * Leukemia/Lymphoma - Immunophenotyping by Flow Cytometry (01/12/2025 9:55 AM EDT) Clinical Indication MDS 01/12/2025 4:19 PM EDT [facility] Flow Cytometry Interpretation APPROXIMATELY 27% MYELOID BLASTS EXPRESSING CD34, CD117, VARIABLE CD33, PARTIAL CD56, VARIABLE HLA-DR, PARTIAL DIM CD7, CD38 AND DIM CD45, SEE COMMENT, BBONE MARROW ASPIRATE. 01/12/2025 4:19 PM EDT [facility] Comments Specimen viability is [...] the Immuno-Molecular Pathology Laboratory at the [facility]. It has not been cleared or [...] clinical laboratory testing. 01/12/2025 4:19 PM EDT [facility] Pathologist Signature Reviewed by: Asad Hartman MD 01/12/2025 4:19 PM EDT [facility] MRD Indicated Test Not Indicated 4:19 PM EDT [facility] Bone Marrow Specimen from bone marrow obtained by aspiration / Unknown Non-blood Collection / Unknown 01/12/2025 9:55 AM EDT 01/12/2025 1:48 PM EDT us New Mckinney MD LAB FLOW CYTOMETRY ORDERABLES Final Result [facility] [address] [place] [address] * Bone marrow exam (01/12/2025 9:55 AM EDT) Case Report Bone Marrow Case: [id number] Authorizing Provider: New Mckinney MD Collected: 01/12/2025 0955 Ordering Location: [facility] Hematology/BMT and Received: 01/12/2025 [facility] Cellular Therapy Program Pathologist: Asad Hartman MD Specimens: A) - Bone Marrow Aspirate, left B) - Bone Marrow Biopsy, left C) - Peripheral Blood for Bone Marrow 5:16 PM EDT [facility] Cytogenetics Report, Addendum Chromosome Analysis Result: Giemsa-banded metaphase cells from unstimulated bone marrow cultures showed the following chromosome pattern: 43~44,X,-X,add(5)( q23),del(5)(q13q33 ),todd(7)ins?(7)(q1 1.2q11.2)t(7;12)(q 11.2;q13),-12,todd( 17)add(17)(p13.2)a dd(17)(q21)[16]/88 ,XX,idemx2[cp3]/46 ,XY[1] Interpretation: Abnormal female chromosome analysis. 95% of metaphase cells analyzed showed clonal abnormalities consistent with this patient's previous abnormal results (see [facility]-[id number]). 5:16 PM EDT [facility] Addendum electronically signed by Asad Hartman MD on 01/23/2025 at 1716 EDT Final Diagnosis PERIPHERAL BLOOD AND BONE MARROW, LEFT POSTERIOR ILIAC CREST, (PERIPHERAL SMEAR, ASPIRATE SMEAR, AND CORE BIOPSY): - HYPOCELLULAR BONE MARROW WITH MARKEDLY DECREASED MEGAKARYOCYTES, DECREASED MATURING GRANULOPOIESIS, APPROXIMATELY 7-10% VARIABLY DISTRIBUTED BLASTS AND MORE THAN 50% RING SIDEROBLASTS, SEE COMMENT. 5:16 PM EDT [facility] at 0941 EDT Comment The discrepancy between blasts percentage by morphologic assessment and flow cytometric analysis is due to erythroid precursors that constitute majority of bone marrow cellularity and are removed by flow cytometry. 5:16 PM EDT [facility] Clinical Information MDS 01/14 5:16 PM EDT [facility] CBC [...] cells. Platelets are decreased. 5:16 PM EDT [facility] Bone Marrow Differential BONE MARROW DIFFERENTIAL: 300 cells Normal Patient Neutrophils 15-50 12 Metamyelocytes 4-19 0 Myelocytes 1-18 1 Promyelocytes 1-8 0 Blasts 0-2 7 Monocytes 0-5 7 Erythroid 16-38 61 Lymphocytes 3-24 7 Eosinophils 0-6 3 Basophils 0-2 0 Plasma cells 0-4 2 Other 5:16 PM EDT [facility] Aspirate Smear The bone [...] of erythroid precursors. 5 5:16 PM EDT [facility] Core Biopsy CELLULARITY: Variably [...] identified. TRABECULAR BONE: Bony trabeculae are normal. 5 5:16 PM EDT [facility] Special and Immunohistochemical Stains Immunohistochemica l [...] at the [facility], [address] [place] [address]. All tests reported here, except those addressing [...] negativity on decalcified specimens. 5:16 PM EDT [facility] Flow Cytometry Interpretation Flow cytometric analysis demonstrates approximately 27% population of myeloid blasts in this patient with history of myelodysplastic syndrome; expressing CD34, CD117, variable CD33, partial CD56, variable HLA-DR, partial dim CD7, CD38 and dim CD45 ([id number]). 5:16 PM EDT [facility] Gross Description B. LEFT A single specimen is received in formalin labeled bone marrow biopsy left posterior iliac crest and consists of 1 piece(s) of red/white tissue measuring 0.9 cm in length 0.2 cm in diameter. The specimen is submitted in to Histology for decalcification and routine processing. Cold Time: <1m 5:16 PM EDT [facility] Note: A resident was involved in the service. I attest I examined the relevant preparations for the specimens and confirmed the diagnosis or interpretation. 5:16 PM EDT [facility] Bone [...] PATHOLOGY ORDERABLES Edit ed Result - Final [facility] [address] [place] [address] documented in this encounter Visit Diagnoses Diagnosis [...] of this encounter Care Teams Pump Servicer Relationship Specialty Start Date End Date Jevon Vazquez MD [address] [place] [address] #1 #1 [place] [address] PCP - General 03/23/22 documented as of this encounter
--- OUTSIDE RECORDS SUMMARY | 2025-01-29 09:10 | XMS_ITS | Encounter Summary ---
Author Organization Healthcare Address [address] [place] [address] Care Team Providers Care Director Of Corporate Real Estate Name Role Phone Jevon Vazquez MD Primary Care Provider [phone] Encounter Details Date Type Department Care Team [...] Hematology/BMT and Cellular Therapy Program [address] [phone] 03/03/2025 1:30 PM EST Office Visit [facility] Hematology/BMT and Cellular Therapy Program [address] [address] Zonia Hoffman, FIELD HORTICULTURAL SPECIALTY GROWER 800 [facility] [address] [place] [phone] documented as of this encounter Visit Diagnoses Not on filedocumented in this encounter Additional Health Concerns Assessment Noted Time A fall risk assessment has been complete d for the patient 09/30/2024 9:33 AM EDT A Body Mass Index follow-up plan has been documented for the patient 05/28/2024 1:52 PM EST documented as of this encounter Care Teams Director Of Corporate Real Estate Relationship Specialty Start Date End Date Jevon Vazquez MD [address] [place] [address] #1 [address]1 [place] [address] PCP - General 03/23/22 documented as of this encounter
--- OUTSIDE RECORDS SUMMARY | 2025-01-29 09:10 | XMS_ITS | Clinical Summary ---
Author Organization [facility] Address [address] [place] [address] Care Team Providers Care Mold Shifter Name Role Phone Jevon Vazquez MD Primary Care Provider [phone] Allergies No known active allergies Medications amLODIPine [...] Active Additional Information Patient not taking.Reported on 01/27/2025 venetoclax (Venclexta) 100 MG tablet Take 2 tablets (200 mg) by mouth 1 (one) time each day. Take on days 1 - 21 (7 days off) of a 28 day cycle. 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) 01/27/2025 3:00 PM EDT Clinical Support [facility] Hematology/BMT and Cellular Therapy Program [address] [place] [phone] Oscar Cortez RN Arrived 01/27/2025 Telephone [facility] [address] [place] [address] Emil Hardy, PharmD 01/27/2025 Telephone [facility] Hematology/BMT and Cellular Therapy Program [address] [place] [phone] Alyson Vivas, RN 01/27/2025 Travel 01/20/2025 Travel 01/16/2025 Telephone [facility] H[facility]ology/BMT and Cellular Therapy Program [address] [place] [phone] Daxa Elliott RN 01/12/2025 10:00 AM EDT Procedure Visit [facility] Hematology/BMT and Cellular Therapy Program [address] [place] [phone] Rebecca Barrientos PA Myelodysplastic syndrome (CMS/HCC); 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) 01/12/2025 9:30 AM EDT Clinical Support [facility] Hematology/BMT and Cellular Therapy Program [address] [place] [phone] 01/12/2025 Travel 01/07/2025 Travel 01/07/2025 Telephone [facility]ology/BMT and Cellular Therapy Program [address] [place] [phone] Sabine Clemons MD 01/07/2025 Refill [facility]ology/BMT and Cellular Therapy Program [address] [phone] Zonia Hoffman, PRODUCTION MACHINE OPERATOR 01/05/2025 Travel 01/05/2025 Refill [facility]ology/BMT and Cellular Therapy Program [address] [place] [phone] Zonia Hoffman, PRODUCTION MACHINE OPERATOR 12/29/2024 Orders Only [facility] H[facility]ology/BMT and Cellular Therapy Program [address] [place] [phone] New Mckinney MD Myelodysplastic syndrome ([facility]/HCC) (Primary Dx) 12/29/2024 Telephone [facility] Hematology/BMT and Cellular Therapy Program 750 [facility], [address] [place] [address] [place] [phone] Bibiana Sepulveda, PRODUCTION MACHINE OPERATOR 12/28/2024 Travel 12/26/2024 Travel 12/25/2024 Travel 12/24/2024 Travel 12/23/2024 Travel 12/11/2024 Telephone [facility]ology/BMT and Cellular Therapy Program 750 [facility], [address] [place] [phone] New Mckinney MD 12/10/2024 Travel 12/09/2024 Refill [facility]ology/BMT and Cellular Therapy Program 750 [facility], [address] [place] [phone] Zonia Hoffman, PRODUCTION MACHINE OPERATOR 11/27/2024 Telephone [facility]ematology/BMT and Cellular Therapy Program 750 [facility], [address] [place] [phone] Zonia Hoffman, PRODUCTION MACHINE OPERATOR 11/26/2024 Travel 11/25/2024 Travel 11/24/2024 Travel 11/23/2024 Travel 11/22/2024 Travel 11/13/2024 Orders Only [facility] Hematology/BMT and Cellular Therapy Program 750 [facility], [address] [place] [phone] 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, gospel worker myeloid leukemia not having achieved remission ([facility]/HCC) (Primary Dx) 11/12/2024 Travel 11/12/2024 Telephone [facility]ematology/BMT and Cellular Therapy Program 750 [facility], [address] [place] [phone] Zonia Hoffman, PRODUCTION MACHINE OPERATOR 11/11/2024 Travel 11/10/2024 Travel 11/09/2024 Travel 11/08/2024 Travel 11/08/2024 Refill [facility]ology/BMT and Cellular Therapy Program 750 [facility], [address] [place] [phone] New Mckinney MD 11/07/2024 Travel 10/29/2024 Refill [facility]ology/BMT and Cellular Therapy Program [address] [place] [phone] Zonia Hoffman APRN 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); Immunosuppressed status (CMS/HCC) from Last 3 Months Immunizations Immunization Administration [...] Mass Index 20.95 01/27/2025 3:21 PM EDT Plan of Treatment Upcoming Encounters Date Type Department Care Team ([facility] Contact Info) Description 03/03/2025 1:00 PM EST Clinical Support [facility] Hematology/BMT and Cellular Therapy Program 750 [facility], [address] [place] [address] [place] [phone] 03/03/2025 1:30 PM EST Office Visit [facility] Hematology/BMT and Cellular Therapy Program 750 [facility], [address] [place] [place] [phone] Zonia Hoffman, PRODUCTION MACHINE OPERATOR [address] [facility] [address] [place] [phone] Health Maintenance Due Date Last Done Comments [...] 05/16/2023 03/21/2023 [facility]-Bone Density Scan 07/25/2024 07/25/2022 [id number] Vaccine (4 - 2024- season) 2024 02/18/2021, [...] this topic Medical Devices Implanted Type Area Door Operator Device Identifier Shelf Expiration Date Model / Serial / Lot Port Clearvue Power 8fr - [id number] Implanted:Qty: 1 on 01/21/2024 by Ness [facility]arg[id number] / / Procedures Procedure Name Priority Date/Time Associated Diagnosis Comments COMPREHENSIVE METABOLIC PANEL, PLASMA Routine 01/27/2025 3:00 PM EDT 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 WBC Count 1.22(L) 3.70 - 10.30 10*3/uL LAB HEMATOLOGY METHOD 01/27/2025 3:21 PM EDT [facility] RBC Count 2.90(L) 3.90 - 5.20 10*6/uL LAB HEMATOLOGY METHOD 01/27/2025 3:21 PM EDT [facility] HGB 8.9(L) 11.2 - 15.7 g/dL LAB HEMATOLOGY METHOD 01/27/2025 3:21 PM EDT [facility] HCT 26.3(L) 34.0 - 45.0 % LAB HEMATOLOGY METHOD 01/27/2025 3:21 PM EDT [facility] Platelet Count 23(L) 155 - 369 10*3/uL LAB HEMATOLOGY METHOD 01/27/2025 3:21 PM EDT [facility] MCV 91 79 - 98 fL LAB HEMATOLOGY METHOD 01/27/2025 3:21 PM EDT [facility] MCH 30.7 26.0 - 32.0 pg LAB HEMATOLOGY METHOD 01/27/2025 3:21 PM EDT [facility] MCHC 33.8 30.7 - 35.5 g/dL LAB HEMATOLOGY METHOD 01/27/2025 3:21 PM EDT [facility] RDW 17.7(H) 11.5 - 14.5 % LAB HEMATOLOGY METHOD 01/27/2025 3:21 PM EDT [facility] MPV 9.0 8.8 - 12.5 fL LAB HEMATOLOGY METHOD 01/27/2025 3:21 PM EDT [facility] nRBC 2.5(H) <=0.0 per 100 WBCs LAB HEMATOLOGY METHOD 01/27/2025 3:21 PM EDT [facility] Differential Type Automated LAB HEMATOLOGY METHOD 01/27/2025 3:21 PM EDT [facility] Neutrophils % 9 % LAB HEMATOLOGY METHOD 01/27/2025 3:21 PM EDT [facility] Lymphocytes % 78 % LAB HEMATOLOGY METHOD 01/27/2025 3:21 PM EDT [facility] Monocytes % 12 % LAB HEMATOLOGY METHOD 01/27/2025 3:21 PM EDT [facility] Eosinophils % 1 % LAB HEMATOLOGY METHOD 01/27/2025 3:21 PM EDT [facility] Basophils % 0 % LAB HEMATOLOGY METHOD 01/27/2025 3:21 PM EDT [facility] Immature Granulocytes % 0 % LAB HEMATOLOGY METHOD 01/27/2025 3:21 PM EDT [facility] Neutrophils Absolute 0.11(LL) 1.60 - 6.10 10*3/uL LAB HEMATOLOGY METHOD 01/27/2025 3:21 PM EDT [facility] Lymphocytes Absolute 0.95(L) 1.20 - 3.90 10*3/uL LAB HEMATOLOGY METHOD 01/27/2025 3:21 PM EDT [facility] Monocytes Absolute 0.15(L) 0.30 - 0.90 10*3/uL LAB HEMATOLOGY METHOD 01/27/2025 3:21 PM EDT [facility] Eosinophils Absolute 0.01 0.00 - 0.50 10*3/uL LAB HEMATOLOGY METHOD 01/27/2025 3:21 PM EDT [facility] Basophils Absolute 0.00 0.00 - 0.10 10*3/uL LAB HEMATOLOGY METHOD 01/27/2025 3:21 PM EDT [facility] Immature Granulocytes Absolute 0.00 0.00 - 0.06 10*3/uL LAB HEMATOLOGY METHOD 01/27/2025 3:21 PM EDT [facility] Blood Blood sample taken from central line / Unknown (Port) Long-term Catheter / Unknown 01/27/2025 3:00 PM EDT 01/27/2025 3:12 PM EDT Narrative [facility] - 01/27/2025 3:21 PM EDT Therapeutic decision making should be based on absolute values, rather than percentages. us New Mckinney MD LAB BLOOD ORDERABLES Final Re sult [facility] [address] [place] [address] * (ABNORMAL) Comprehensive Metabolic Panel, Plasma (01/27/2025 3:00 PM EDT) Only the most recent of2 resultswithin the time period is included. Glucose, Plasma 89 74 - 99 mg/dL 01/27/2025 4:26 PM EDT [facility] BUN, Plasma 22 8 - 23 mg/dL 01/27/2025 4:26 PM EDT [facility] Creatinine, Plasma 1.10 0.60 - 1.10 mg/dL 01/27/2025 4:26 PM EDT [facility] BUN/Creatinine Ratio 20 01/27/2025 4:26 PM EDT [facility] Sodium, Plasma 138 136 - 145 mmol/L 01/27/2025 4:26 PM EDT [facility] Potassium, Plasma 4.6 3.6 - 4.9 mmol/L 01/27/2025 4:26 PM EDT [facility] Chloride, Plasma 106 97 - 107 mmol/L 01/27/2025 4:26 PM EDT [facility] CO2, Plasma 22 22 - 29 mmol/L 01/27/2025 4:26 PM EDT [facility] Anion Gap 10 6 - 16 mmol/L 01/27/2025 4:26 PM EDT [facility] Total Calcium, Plasma 9.6 8.9 - 10.2 mg/dL 01/27/2025 4:26 PM EDT [facility] Total Protein 6.2(L) 6.3 - 7.9 g/dL 01/27/2025 4:26 PM EDT [facility] Albumin, Plasma 3.9 3.5 - 5.2 g/dL 01/27/2025 4:26 PM EDT [facility] AST, Plasma 33 10 - 35 U/L 01/27/2025 4:26 PM EDT [facility] ALT, Plasma 11 10 - 35 U/L 01/27/2025 4:26 PM EDT [facility] Alkaline Phosphatase, Plasma 43(L) 46 - 142 U/L 01/27/2025 4:26 PM EDT [facility] Total Bilirubin, Plasma 0.5 0.2 - 1.1 mg/dL 01/27/2025 4:26 PM EDT [facility] eGFRcr 52.8 mL/min/1.7 3m*2 01/27/2025 4:26 PM EDT [facility] Comment:Reported eGFRcr in m L/min/1.73m2 is based the CKD-EPI 2020 equation that does not use a race coefficient. Blood Blood sample taken from central line / Unknown (Port) Long-term Catheter / Unknown 01/27/2025 3:00 PM EDT 01/27/2025 3:54 PM EDT us New Mckinney MD LAB BLOOD ORDERABLES Final Re sult [facility] [address] [place] [address] * BIOPSY BONE MARROW (01/12/2025 10:00 AM EDT) Narrative Rebecca Barrientos PA - 01/12/2025 10:00 AM EDT Rebecca Barrientos PA 01/12/2025 12:20 PM Biopsy bone marrow Performed by: Rebecca Barrientos PA Authorized by: Rebecca Barrientos PA us Rebecca SUAREZ IN CLINIC/BEDSIDE ORDERABLE S Final Result * Chromosome Karyotype, Oncology (01/12/2025 9:55 AM EDT) Specimen Type Bone Marrow 01/20/2025 12:21 PM EDT [facility] Clinical Indication Myelodysplastic Syndrome 01/20/2025 12:21 PM EDT [facility] Specimen Adequacy Adequate 025 12:21 PM EDT [facility] Chromosome Analysis Result Giemsa-banded metaphase cells from unstimulated bone marrow cultures showed the following chromosome pattern: 43~44,X,-X,add(5)( q23),del(5)(q13q33 ),todd(7)ins?(7)(q1 1.2q11.2)t(7;12)(q 11.2;q13),-12,todd( 17)add(17)(p13.2)a dd(17)(q21)[16]/88 ,XX,idemx2[cp3]/46 ,XY[1] 01/20/2025 12:21 PM EDT [facility] Interpretation Abnormal female chromosome analysis. 95% of metaphase cells analyzed showed clonal abnormalities consistent with this patient's previous abnormal results (see [facility]-[id number]). Clinical correlation is recommended. Note: Per [employer] (CAP) requirement an additional karyotype was performed and charged due to the presence of clonal abnormalities. # cells counted = 20 # cells analyzed = 20 # cells karyotyped = 3 Band resolution: 400-450 01/20/2025 12:21 PM EDT [facility] Pathologist Signature Reviewed by: Corey Tejada 01/20/2025 12:21 PM EDT [facility] Bone Marrow Non-blood Collection / Unknown 01/12/2025 9:55 AM EDT 01/12/2025 12:37 PM EDT us New Mckinney MD LAB CYTOGENETICS ORDERABLES F inal Result [facility] [address] [place] [address] * Leukemia/Lymphoma - Immunophenotyping by Flow Cytometry (01/12/2025 9:55 AM EDT) Clinical Indication MDS 01/12/2025 4:19 PM EDT [facility] Flow Cytometry Interpretation APPROXIMATELY 27% MYELOID BLASTS EXPRESSING CD34, CD117, VARIABLE CD33, PARTIAL CD56, VARIABLE HLA-DR, PARTIAL DIM CD7, CD38 AND DIM CD45, SEE COMMENT, BBONE MARROW ASPIRATE. 01/12/2025 4:19 PM EDT [facility] Comments Specimen viability is [...] surface light chains 01/12/2025 4:19 PM EDT [facility] Disclaimer This test was developed and its [...] clinical laboratory testing. 01/12/2025 4:19 PM EDT [facility] Pathologist Signature Reviewed by: Asad Hartman MD 01/12/2025 4:19 PM EDT [facility] MRD Indicated Test Not Indicated 4:19 PM EDT [facility] Bone Marrow Specimen from bone marrow obtained by aspiration / Unknown Non-blood Collection / Unknown 01/12/2025 9:55 AM EDT 01/12/2025 1:48 PM EDT us New Mckinney MD LAB FLOW CYTOMETRY ORDERABLES Final Result [facility] [address] [place] [address] * Bone marrow exam (01/12/2025 9:55 AM EDT) Case Report Bone Marrow Case: [id number] Authorizing Provider: New Mckinney MD Collected: 01/12/2025 0955 Ordering Location: [facility] Hematology/BMT and Received: 01/12/2025 1143 Cellular Therapy Program Pathologist: Asad Hartman MD Specimens: A) - Bone Marrow Aspirate, left B) - Bone Marrow Biopsy, left C) - Peripheral Blood for Bone Marrow 5:16 PM EDT [facility] Cytogenetics Report, Addendum Chromosome Analysis Result: Giemsa-banded metaphase cells from unstimulated bone marrow cultures showed the following chromosome pattern: 43~44,X,-X,add(5)( q23),del(5)(q13q33 ),todd(7)ins?(7)(q1 1.2q11.2)t(7;12)(q 11.2;q13),-12,todd( 17)add(17)(p13.2)a dd(17)(q21)[16]/88 ,XX,idemx2[cp3]/46 ,XY[1] Interpretation: Abnormal female chromosome analysis. 95% of metaphase cells analyzed showed clonal abnormalities consistent with this patient's previous abnormal results (see [facility]-[id number]). 5:16 PM EDT [facility] [...] RING SIDEROBLASTS, SEE COMMENT. 5:16 PM EDT [facility] at 0941 EDT Comment The discrepancy between blasts percentage by morphologic assessment and flow cytometric analysis is due to erythroid precursors that constitute majority of bone marrow cellularity and are removed by flow cytometry. 5:16 PM EDT [facility] Clinical Information MDS 01/14 5:16 PM EDT [facility] [...] cells. Platelets are decreased. 5:16 PM T [facility] Bone Marrow Differential BONE MARROW DIFFERENTIAL: 300 cells Normal Patient Neutrophils 15-50 12 Metamyelocytes 4-19 0 Myelocytes 1-18 1 Promyelocytes 1-8 0 Blasts 0-2 7 Monocytes 0-5 7 Erythroid 16-38 61 Lymphocytes 3-24 7 Eosinophils 0-6 3 Basophils 0-2 0 Plasma cells 0-4 2 Other 5:16 PM T [facility] Aspirate Smear The bone [...] 50% of erythroid precursors. 5:16 PM T [facility] Core Biopsy CELLULARITY: Variably [...] Bony trabeculae are normal. 5:16 PM T [facility] Special and Immunohistochemical Stains Immunohistochemica l stains [...] the [facility], [address] [place] [address]. All tests reported here, except those addressing [...] false negativity on decalcified specimens. 5:16 PM [facility] Flow Cytometry Interpretation Flow cytometric analysis demonstrates approximately 27% population of myeloid blasts in this patient with history of myelodysplastic syndrome; expressing CD34, CD117, variable CD33, partial CD56, variable HLA-DR, partial dim CD7, CD38 and dim CD45 ([id number]). 5:16 PM [facility] Gross Description B. LEFT A single specimen is received in formalin labeled bone marrow biopsy left posterior iliac crest and consists of 1 piece(s) of red/white tissue measuring 0.9 cm in length 0.2 cm in diameter. The specimen is submitted in to Histology for decalcification and routine processing. Cold Time: <1m 5:16 PM [facility] Note: A resident was involved in the service. I attest I examined the relevant preparations for the specimens and confirmed the diagnosis or interpretation. 5:16 PM [facility] Bone Marrow Peripheral blood specimen / Unknown [...] PATHOLOGY ORDERABLES Edit ed Result - Final [facility] [address] [place] [address] * Hepatitis C Antibody w/Reflex to HCV Quant PCR (01/07/2024 8:42 AM EDT) Hepatitis C Antibody Negative Negative 01/07/2024 10:13 AM EDT [facility] Blood Venous blood specimen / Unknown Venipuncture / Unknown 01/07/2024 8:42 AM EDT 01/07/2024 9:25 AM EDT New Mckinney MD LAB BLOOD ORDERABLES Final Re sult [facility] [address] [place] [address] from Last 3 Months or Most Recently Relevant to Health Maintenance Insurance MEDICARE ANTHEM Care Teams Mold Shifter Relationship Specialty Start Date End Date Jevon Vazquez MD [address] [place] [address] #1 #1 JOSEP [place] [id number] PCP - General 03/23/22
--- OUTSIDE RECORDS SUMMARY | 2025-01-29 09:10 | XMS_ITS | Encounter Summary ---
Author Organization Healthcare Address [address] [place] [address] Care Team Providers Care Filtering Machine Tender Name Role Phone Jevon Vazquez MD Primary Care Provider [phone] Encounter Details Date Type Department Care Team ([facility] Contact Info) Description 01/28/2025 Telephone [facility] Hematology/BMT and Cellular Therapy Program [address] [phone] New Mckinney MD 800 [facility] [address] [place] [phone] Social History Tobacco Use Types Packs/Day Years [...] encounter Miscellaneous Notes * Telephone Encounter - Oscar Covarrubias - 01/28/2025 11:22 AM EDT Called and spoke to patient to inform patient of appointment at [place] on 02/04. Patient was informed that a [employer] message will be sent with information. documented in this encounter Plan of Treatment Upcoming Encounters Date Type Department Care Team ([facility] Contact Info) Description 03/03/2025 1:00 PM EST Clinical Support [facility] Hematology/BMT and Cellular Therapy Program [address] [place] [phone] 03/03/2025 1:30 PM EST Office Visit [facility] H[facility]BMT and Cellular Therapy Program [address] [place] [address] Zonia Hoffman, BUSINESS ENTERPRISE OFFICER 800 [facility] [address] [place] [phone] documented as of this encounter Visit Diagnoses Not on filedocumented in this encounter Additional Health Concerns Assessment Noted Time A fall risk assessment has been complete d for the patient 01/27/2025 3:25 PM EDT A Body Mass Index follow-up plan has been documented for the patient 05/28/2024 1:52 PM EST documented as of this encounter Care Teams Filtering Machine Tender Relationship Specialty Start Date End Date Jevon Vazquez MD [address] [place] [address] #1 #1 [place] [phone] PCP - General 03/23/22 documented as of this encounter
--- OUTSIDE RECORDS SUMMARY | 2025-01-29 09:10 | XMS_ITS | Encounter Summary ---
Author Organization [facility] Address [address] [place] [address] Care Team Providers Care Wool Carder Name Role Phone Jevon Vazquez MD Primary Care Provider [phone] Encounter Details Date Type Department Care Team (Late st Contact Info) Description 01/27/2025 Telephone [facility] [address] [place] [phone] Emil Hardy, PharmD Social History Tobacco Use Types Packs/Day Years [...] encounter Miscellaneous Notes * Telephone Encounter - Kris Valdes, PharmD - 01/28/2025 2:40 PM EDT [facility] Specialty Medication Initial Care Plan Ashly Hernández is a 74 y.o. female assessed via phone for initiation of drug therapy Inqovi for diagnosis AML. Plan for administration of therapy in patient's home Therapeutic Category: Oncology Chart Review Allergies: Patient has no known allergies. Current Outpatient Medications Medication Instructions acyclovir (ZOVIRAX) 800 mg, Oral, 2 times daily amLODIPine (NORVASC) 5 mg, Daily decitabine-cedazuridine (Inqovi) 35-100 MG tablet tablet 35 mg, Oral, Daily fenofibrate (TRICOR) 145 mg, Daily fluconazole (DIFLUCAN) 400 mg, Oral, Daily levoFLOXacin (LEVAQUIN) 500 mg, Oral, Daily lidocaine-prilocaine (Emla) 2.5-2.5 % cream Please apply to port area 30-45 min prior to access pioglitazone (ACTOS) 30 mg, Daily potassium chloride CR (K-Tab) 20 MEQ ER tablet 20 mEq, Oral, 2 times daily prochlorperazine (COMPAZINE) 10 mg, Oral, Every 6 hours PRN rosuvastatin (CRESTOR) 5 mg, Oral, Nightly venetoclax (VENCLEXTA) 200 mg, Oral, Daily, Take on days 1 - 21 (7 days off) of a 28 day cycle. Problem List[1] Immunization History Administered Date(s) Administered Influenza, High-dose, Split Virus, Trivalent, Injectable, preservative free 03/21/2024 Moderna COVID-19 Vaccine (Seed Corn Production Manager) 12+ years 06/12/2020, 07/10/2020, 02/18/2021 Selected lab results: Lab Results Component Value Date WBC 1.22 (L) 01/27/2025 HGB 8.9 (L) 01/27/2025 HCT 26.3 (L) 01/27/2025 PLT 23 (L) 01/27/2025 , Lab Results Component Value Date NA 138 01/27/2025 K 4.6 01/27/2025 CL 106 01/27/2025 CREATININE 1.10 01/27/2025 BUN 22 01/27/2025 GLUCOSE 89 01/27/2025 CALCIUM 9.6 01/27/2025 CO2 22 01/27/2025 , and Lab Results Component Value Date ALBUMIN 3.9 01/27/2025 ALKPHOS 43 (L) 01/27/2025 ALT 11 01/27/2025 AST 33 01/27/2025 BILITOT 0.5 01/27/2025 Patient profile review for changes in Medications, Allergies, Conditions, Vaccinations? Reviewed - no changes Medication reconciliation - review all current medications including prescriptions, PTC, herbals, and supplements with the patient? Completed Is this an infusion therapy? No Patient is treatment: Experienced: Previous therapies include Aza/Gaston Reasons for previous treatment failure therapy change Is patient of child bearing potential? No Disease specific labs or assessments: Other see above Does patient have an active infection? None Drug Review Patient drug therapy to be initiated: Inqovi Planned date of initiation: 01/29/25 Is the patient taking concomitant therapy for this disease? No Drug assessment: Is this the appropriate drug/dose/route/frequency/duration? Yes Drug utilization review Drug-disease precautions: No clinically significant issues identified Drug-drug interactions: No clinically significant issues identified Drug-patient precautions: No clinically significant issues identified Adherence summary: What percent of doses did the patient miss in the past 4 weeks? N/A Therapeutic benefit summary: N/A Patient's therapy is appropriate to: Initiate Education and Counseling Patient refused education & counseling on disease education including an overview of the condition, its progression and potential complications, associated comorbidities, prevention strategies, goals of therapy, and treatment and therapy management. Patient refused education & counseling on medication(s) including REMS/Black box warnings, proper use, timely administration or intake, missed dose instructions, potential side effects, contraindications, safety and handling precautions, storage and disposal guidelines, and general warnings and precautions. Patient refused education & counseling on adherence including the importance of adherence and adherence management strategies. Medication specific education provided: Patient reports education was provided by [facility]. She denied further education at this time and will call if she has anymore questions. Monitoring Questions Patient reported outcomes: Do you feel comfortable administering your medication and following the treatment plan as prescribed? Yes If therapy is injectable, does patient require further injection training? No How would you rate your pain on average? (0 = no pain, 10 = worst pain imaginable) 6 On a scale from 1 to 10, with 10 being very well and 1 being very poor, how are you feeling overall? 7 How satisfied are you with the ongoing education and counseling you receive regarding your health condition, on a scale of 1 to 5, with 5 being completely satisfied and 1 being dissatisfied? Patient management score: 5-Completely Satisfied Patient Management Assessment scores must be reviewed by a clinician with each Care Plan. Scores of2 or lower must be documented in a Clinical Intervention Care Plan. Disease symptoms assessment Has the patient been seen for planned or unplanned healthcare visit in the last 4 weeks? Planned provider visit: hem/onc Has the patient missed any days from work, school, or planned activities in the past 4 weeks due totheir disease? No Care Plan Questions Goal(s) of therapy: Improving or maintaining quality of life, Control signs and symptoms of disease, Slow or prevent progression of disease, Reduce disability and/or long-term complications, and Minimize/manage side effects or toxicities Strategies to achieve goal(s) of therapy: Adhere to plan of care (drug therapy), Comply to lab tests/imaging, Comply to follow up appointments, and Share concerns about drug therapy or side effects with care team Identified barrier(s) to care/intervention problem type: No problems identified (No barriers to care or risks associated with medication storage and handling identified) Mitigation strategy for identified barriers: n/a Outcome of Clinical Intervention: Intervention not needed Current adverse events/side effects patient is experiencing: Unable to assess Counseled patient on selected side effects: Patient verbalized understanding Summary/Plan Prior authorization for Inqovi has been approved and education provided. The Initial Shipment has been set up and anticipated therapy start date is: 01/29/25 from [facility]acy. Please see pharmacy encounter note for details. Pharmacist reviewed the plan of care in regards to specialty medication Inqovi for diagnosis AML. Assessment: QoL is 7. Patient demonstrated understanding of treatment plan and had no questions at this time. Will continue to follow. Plan/Patient specific needs: none Patient/caregiver participated in the development and expressed understanding of the plan of care. Patient/caregiver had no additional questions or concerns for the care team. Patient/caregiver voiced understanding of the goals with the regimen and agreed to attend follow up appointments to assess progress toward their goal. The plan of care will be reviewed at least annually, or more often if there is a need. 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) * Telephone Encounter - Kris Valdes PharmD - 01/28/2025 2:01 PM EDT 74 yoF with AML Initiating Inqovi 35/100 mg 1 tab po daily for 5 days Labs 01/27/25: WBC 1.22, Plts 23, ANC 0.11, SCr 1.10, LFTs WNL No DDIs documented in this encounter Plan of Treatment Upcoming Encounters Date Type Department Care Team (Late st Contact Info) Description 03/03/2025 1:00 PM EST Clinical Support [facility] Hematology/BMT and Cellular Therapy Program [address] [phone] 03/03/2025 1:30 PM EST Office Visit [facility] Hematology/BMT and Cellular Therapy Program [address] [phone] Zonia Hoffman, CREATIVE MANAGER 800 [facility] [address] [place] [phone] documented as of this encounter Visit Diagnoses Not on filedocumented in this encounter Additional Health Concerns Assessment Noted Time A fall risk assessment has been complete d for the patient 01/27/2025 3:25 PM EDT A Body Mass Index follow-up plan has been documented for the patient 05/28/2024 1:52 PM EST documented as of this encounter Care Teams Wool Carder Relationship Specialty Start Date End Date Jevon Vazquez MD [address] [place] [address] [address]1 [address] [place] [address] PCP - General 03/23/22 documented as of this encounter
--- OUTSIDE RECORDS SUMMARY | 2025-01-29 09:10 | XMS_ITS | Encounter Summary ---
Author Organization Healthcare Address [address] [place] [address] Care Team Providers Care Barrel Waterer Name Role Phone Jevon Vazquez MD Primary Care Provider [phone] Encounter Details Date Type Department Care Team [...] Hematology/BMT and Cellular Therapy Program [address] [phone] 03/03/2025 1:30 PM EST Office Visit [facility] Hematology/BMT and Cellular Therapy Program [address] [phone] Zonia Hoffman, SENIOR LITIGATION PARALEGAL 800 [facility] [address] [place] [phone] documented as of this encounter Visit Diagnoses Not on filedocumented in this encounter Additional Health Concerns Assessment Noted Time A fall risk assessment has been complete d for the patient 09/30/2024 9:33 AM EDT A Body Mass Index follow-up plan has been documented for the patient 05/28/2024 1:52 PM EST documented as of this encounter Care Teams Barrel Waterer Relationship Specialty Start Date End Date Jevon Vazquez MD [address] [place] [address] [address]1 [address] [place] [address] PCP - General 03/23/22 documented as of this encounter
--- OUTSIDE RECORDS SUMMARY | 2025-01-29 09:10 | XMS_ITS | Clinical Summary ---
Author Organization [facility] Address [address] [place] [id number] Care Team Providers Care Teaching Dietitian Name Role Phone David Vazquez Primary Care Provider [phone] Allergies No known active allergies Medications atorvastatin [...] 1950 Colonoscopy 1950 Colorectal Cancer Screening 1950 FIT 1950 Lipid Monitoring 11/04/1967 Tetanus Vaccination (Every 10 Years) 1968 Hepatitis C Virus (HCV) Screening 11/04/1971 Breast Cancer Screening 2000 Pneumococcal Vaccine: 50+ Years (1 of 1 - PCV) 001 Zoster-RZV(Shingrix) (1 of 2) 2000 Fall Risk Assessment 11/04/2015 Osteoporosis Screening 11/04/2015 Advance Care Planning 04/16/2024 Depression Screening 04/16/2024 COVID-19 Vaccine ( - season) 2024 Influenza Vaccination (#1) 2024 RSV Vaccines (1 - 1-dose 75+ series) 2025 Renal Monitoring Discontinued 01/24/2023 Medical Devices Implanted Type Area Marshmallow Runner Device Identifier Shelf Expiration Date Model / Serial / Lot Mis Ply Scr 6.5x50mm - [id number] Implanted:Qty : 1 on 01/30/2023 by Ivan Bartholomew MD at [facility] Screw N/A: Spine Lumbar [employer] [id number] / / Mis Ply Scr 6.5x45mm - [id number] Implanted:Qty : 3 on 01/30/2023 by Ivan Bartholomew MD at [facility] [employer] Screw N/A: Spine Lumbar [employer] [id number] / / Reline Mas Reduction Screw 7.5x45 - [id number] Implanted:Qty : 2 on 01/30/2023 by Ivan Bartholomew MD at [facility] [employer] Screw N/A: Spine Lumbar [employer] [id number] / / Grft Dbm Vesuvius Putty 5cc - [id number] Implanted:Qty : 1 on 01/30/2023 by Ivan Bartholomew MD at [facility] [employer] [id number] 04/20/2025 [id number] P / [id number] / Putty I-Factor 5.0cc - [id number] Implanted:Qty : 1 on 01/30/2023 by Ivan Bartholomew MD at [facility] [employer] N/A: Spine Lumbar [employer] 03/15/2025 [id number] / / [id number] Modulus Xlw [id number] 10 Degree - [id number] Implanted:Qty : 1 on 01/30/2023 by Ivan Bartholomew MD at [facility] N/A: Spine Lumbar [employer] [id number] / / [id number] Modulus Xlw [id number] - [id number] Implanted:Qty : 1 on 01/30/2023 by Ivan Bartholomew MD at [facility] [employer] N/A: Spine Lumbar [employer] 09/28/2027 [id number] / / [id number] Reln Lock Scr 5.5mm Opn Tulip - [id number] Implanted:Qty : 6 on 01/30/2023 by Ivan Bartholomew MD at [facility] [employer] N/A: Spine Lumbar [employer] [id number] / / Reln Mas Ti Petar 5.5x70mm - [id number] Implanted:Qty : 2 on 01/30/2023 by Ivan Bartholomew MD at [facility] N/A: Spine Lumbar [employer] [id number] / / Procedures Procedure Name Priority Date/Time Associated Diagnosis Comments BASIC METABOLIC PANEL (BMP=EP1) Routine 01/24/2023 2:32 PM EDT Neurogenic claudication due to lumbar spinal stenosis from Last 3 Months or Most Recently Relevant to Health Maintenance Results * (ABNORMAL) BASIC METABOLIC PANEL (BMP=EP1) (01/24/2023 2:32 PM EDT) Sodium 141 135 - 146 mmol/L [facility] Potassium 4.8 3.5 - 5.1 mmol/L [facility] Chloride 107 98 - 110 mmol/L [facility] CO2 24 22 - 29 mmol/L [facility] Anion Gap 10 5 - 13 mmol/L [facility] Comment:Anion gap calculatio n does not include potassium (K+) value. BUN 17 7 - 25 mg/dL [facility] Creatinine 1.20 0.50 - 1.20 mg/dL [facility] Glucose 125(H) 71 - 99 mg/dL [facility] Comment:Reference range (71- 99 mg/dL) refers only to fasting samples, and does not apply to non-fasting samples. eGFR CKD-EPI 2020 48 See Note [facility] Comment: eGFR calculated with 2020 [...] 2:32 PM EDT 01/24/2023 5:54 PM EDT Lexi SUAREZ CHEMISTRY ORDERABLES Final Resu lt [facility] [address] from Last 3 Months or Most Recently Relevant to Health Maintenance Insurance MEDICARE Member Subscriber Plan / Payer (Ef fective 2016-Present) Name:Ashly Briceño Member ID:[id number] Relation to Subscriber:Self Name:Ashly Briceño Subscriber ID:[id number] Payer ID:[id number] Group ID:Not on file Type:Medicare Address: [facility] J15 PART A [facility] [place] [address] [place] [address] [facility] Advance Directives For more information, please contact: [phone] * Full Code (Latest Code Status on File) Date Activated Date Inactivated Comments 01/30/2023 9:13 AM No automated chest compression devices for VAD Patients Care Teams Teaching Dietitian Relationship Specialty Start Date End Date David Vazquez [address] [place] [address] PCP - General 01/24/23
--- OUTSIDE RECORDS SUMMARY | 2025-01-29 09:11 | XMS_ITS | Clinical Summary ---
Author Organization [facility] Address [address] [place] [address] Phone Care Team Providers Care Product Support Consultant Name Role Phone Jevon Vazquez MD Primary Care Provider [phone] Allergies Active Allergy Reactions Criticality Noted Date [...] LAMINECTOMY; Surgeon: Ivan Bartholomew MD; Location: [facility] MAIN OR; Service: Spine Medical History [...] 5.6 % 11/14/2022 2:57 PM EDT PREFERRED [employer], [employer] Est. Avg Glucose 148 mg/dL 11/14/2022 2:57 PM EDT [employer] Blood VENOUS BLOOD / Unknown Venipuncture / Unknown 11/11/2022 3:46 PM EDT 11/11/2022 3:55 PM EDT Narrative PREFERRED [facility] - 11/14/2022 2:57 PM EDT REFERENCE RANGE: Normal: 4.0-5.6% Pre-diabetes: 5.7-6.4% Provisional diagnosis of diabetes: >6.4% Hgb F>10% and anything which shortens red cell survival, such as hemolytic anemia, or unstable hemoglobin variants such as HbSS, HbSC, or HbCC, will lower the HbA1c value associated with a given level of glycemic control. us Lexi Maloney DO CHEMISTRY ORDERABLES Final R esult [employer] [address] [facility] , [address] [place] [id number] * (ABNORMAL) BASIC METABOLIC PANEL (11/11/2022 3:46 PM EDT) Sodium 136 136 - 145 mmol/L 11/11/2022 4:11 PM EDT [facility] Potassium 3.8 3.5 - 5.0 mmol/L 11/11/2022 4:11 PM EDT [facility] Chloride 102 98 - 107 mmol/L 11/11/2022 4:11 PM EDT [facility] Total CO2 24 22 - 29 mmol/L 11/11/2022 4:11 PM EDT [facility] Anion Gap 10 7 - 16 mmol/L 11/11/2022 4:11 PM EDT [facility] Calcium 10.1 8.8 - 10.4 mg/dL 11/11/2022 4:11 PM EDT [facility] Glucose Lvl 147(H) 82 - 100 mg/dL 11/11/2022 4:11 PM EDT [facility] BUN 15 8 - 23 mg/dL 11/11/2022 4:11 PM EDT [facility] Creatinine 0.82 0.51 - 1.30 mg/dL 11/11/2022 4:11 PM EDT [facility] eGFR (CKD-EPIcr 2021) 76 >=60 mL/min/1.7 3 m2 11/11/2022 4:11 PM EDT [facility] Comment:Estimated GFR was ca lculated using the CKD-EPIcr (2020) equation refit without race. The equation is recommended by the National Kidney Foundation - [place] Society of Nephrology Task Force. Blood VENOUS BLOOD / Unknown Venipuncture / Unknown 11/11/2022 3:46 PM EDT 11/11/2022 3:54 PM EDT us Leona Hanna DO CHEMISTRY ORDERABLES Final Res ult [facility] [address] [place] [address] * DX BONE DENSITY AXIAL SKELETON (07/25/2022 9:14 AM EDT) Anatomical Region Laterality Modality Dexa Scan 07/25/2022 Narrative 07/25/2022 3:45 PM EDT Indication: The patient is a female age 65 or older who requires a bone density assessment. Study was performed on Whereoscope 5. Bone Density: Region BMD T-score Z-score [...] Payer (Ef fective 2016-Present) Name:Ashly Hernández Member ID:[id number] Relation to Subscriber:Self Name:Ashly Hernández Subscriber ID:[id number] Payer ID:Not on file Group ID:Not on file Type:Not on file Address: [address] MEDICARE SUPPLEMENT MEDICARE [place] PART A & B MEDICARE [place] PART A AND B Member Subscriber Plan / Payer (Ef fective 2016-Present) Name:Ashly Hernández Member ID:[id number] Relation to Subscriber:Self Name:Ashly Hernández Subscriber ID:[id number] Payer ID:Not on file Group ID:Not on file Type:Not on file Address: [address] MEDICARE SUPPLEMENT [employer] MEDICARE [place] PART A AND B [address] MEDICARE SUPPLEMENT Advance Directives For more information, please contact: [phone] * Full Code (Latest Code Status on File) Date Activated Date Inactivated Comments 11/14/2022 6:53 PM 11/16/2022 7:37 PM * Full Code Date Activated Date Inactivated Comments 11/12/2022 5:17 AM 11/14/2022 6:47 PM Care Teams Product Support Consultant Relationship Specialty Start Date End Date Jevon Vazquez MD [address] [place] [address] PCP - General Family Medicine 11/10/22
[2025-01-29 09:29] LABS: Albumin Level 3.6 g/dl (3.5-5.0); Chloride 104 mmol/L (98-107); Potassium 3.5 mmoL/L (3.5-5.1); Sodium 137 mmol/L (136-145)
[2025-01-29 09:32] LABS: Alanine Aminotransferase 15 U/L (12-78); Albumin/Globulin Ratio 1.4 (1.1-1.8); Alkaline Phosphatase 48 U/L (38-126); Anion Gap 12.5 mEq/L (5-15); Aspartate Amino Transferase 33 U/L (14-36); Bilirubin,Total 0.6 mg/dl (0.2-1.3); Blood Urea Nitrogen 19 mg/dl (7-17); Carbon Dioxide 24 mmol/L (22.0-30.0); Creatinine Clearance Estimated 45 mL/min (50-200); Creatinine,Serum 1.00 mg/dl (0.52-1.04); Estimated Glomerular Filt Rate 54 ml/min (>60); GFR (African American) 66 ML/MIN (>60); Globulin 2.5 g/dL (1.3-3.2); Total Protein,Serum 6.1 g/dl (6.3-8.2)
[2025-01-29 09:33] LABS: Calcium 9.0 mg/dl (8.4-10.2); Glucose 158 mg/dl (74-100)
[2025-01-29 09:40] LABS: Hematocrit 25.3 % (37.0-47.0); Hemoglobin 8.5 g/dL (12.2-16.2); Immature Granulocytes % 0 %; Mean Corpuscular HGB Conc 33.6 g/dL (31.8-35.4); Mean Corpuscular Hemoglobin 30.8 pg (27.0-31.2); Mean Corpuscular Volume 91.7 fl (81-99); Nucleated Red Blood Cells % 3.6 %; Red Blood Count 2.76 M/mm3 (4.20-5.40); Red Cell Distribution Width-SD 60.0 fL
[2025-01-29 09:44] LABS: White Blood Count 1.4 K/mm3 (4.8-10.8)
[2025-01-29 09:45] LABS: Platelet Count 9 K/mm3 (142-424)
[2025-01-29 10:31] LABS: Total Cells Counted 50
[2025-01-29 10:33] LABS: RBC Morphology Normal
[2025-01-29] MEDS: 0.9 % SODIUM CHLORIDE 250 ML 25 ML IV (12:23)
--- NOTE | 2025-01-29 12:26 | PC.NURSE ---
1223-Platelets started transfusing by gravity at this time.
== END 2025-01-29 23:59 | disposition home or self-care (01) ==
LOC: INF 09:01
PROVIDERS: PCP Family Medicine; Visit Provider Internal Medicine Medical Oncology
DX: C92.00 Acute myeloblastic leukemia, not having achieved remission (principal)
CPT/HCPCS: 36430; 80053; 85007; 85025; 85027; 86900; 86901; J1642; J7050; P9034

== ENCOUNTER 2025-02-02 08:55 | Outpatient (CLI) | payer MEDICARE, BC, SELFPAY ==
[2025-02-02] VITALS (10 sets, daily range): BP systolic 112–132; BP diastolic 47–59; PULSE 74–84; RESP 14–16; TEMP 36.4–36.7; O2SAT 98–100; BMI 21.8
[2025-02-02 09:26] LABS: Albumin Level 3.5 g/dl (3.5-5.0); Chloride 104 mmol/L (98-107); Potassium 3.5 mmoL/L (3.5-5.1); Sodium 136 mmol/L (136-145)
[2025-02-02 09:28] LABS: Hematocrit 23.6 % (37.0-47.0); Hemoglobin 7.9 g/dL (12.2-16.2); Immature Granulocytes % 0 %; Mean Corpuscular HGB Conc 33.5 g/dL (31.8-35.4); Mean Corpuscular Hemoglobin 30.5 pg (27.0-31.2); Mean Corpuscular Volume 91.1 fl (81-99); Nucleated Red Blood Cells % 5.6 %; Red Blood Count 2.59 M/mm3 (4.20-5.40); Red Cell Distribution Width-SD 59.8 fL
[2025-02-02 09:29] LABS: Alanine Aminotransferase 14 U/L (12-78); Albumin/Globulin Ratio 1.4 (1.1-1.8); Alkaline Phosphatase 48 U/L (38-126); Anion Gap 10.5 mEq/L (5-15); Aspartate Amino Transferase 31 U/L (14-36); Bilirubin,Total 0.6 mg/dl (0.2-1.3); Calcium 8.9 mg/dl (8.4-10.2); Carbon Dioxide 25 mmol/L (22.0-30.0); Globulin 2.5 g/dL (1.3-3.2); Glucose 163 mg/dl (74-100); Total Protein,Serum 6.0 g/dl (6.3-8.2)
[2025-02-02 09:31] LABS: White Blood Count 1.3 K/mm3 (4.8-10.8)
[2025-02-02 09:32] LABS: Platelet Count 16 K/mm3 (142-424)
[2025-02-02 09:34] LABS: Blood Urea Nitrogen 23 mg/dl (7-17); Creatinine Clearance Estimated 45 mL/min (50-200); Creatinine,Serum 1.00 mg/dl (0.52-1.04); Estimated Glomerular Filt Rate 54 ml/min (>60); GFR (African American) 66 ML/MIN (>60)
[2025-02-02 11:06] LABS: RBC Morphology Normal; Total Cells Counted 50
[2025-02-02] MEDS: ACETAMINOPHEN 325MG TAB 650 MG PO (14:20)
[2025-02-02] MEDS: SODIUM CHLORIDE 0.9% 250ML BAG 250 ML IV (14:42)
--- NOTE | 2025-02-02 15:03 | PC.NURSE ---
1456 Informed lab that there is an issue with patient blood band not scanning. Numbers on blood band match patient's blood sample from today. Spoke with Marybel Packer who insturcted to override and proceed with blood transfusion.
[2025-02-02] MEDS: SODIUM CHLORIDE 0.9% 10ML FLUSH SYRINGE 10 ML IV (17:34)
== END 2025-02-02 23:59 | disposition home or self-care (01) ==
LOC: INF 08:56
PROVIDERS: PCP Family Medicine; Visit Provider Internal Medicine Medical Oncology
DX: C92.00 Acute myeloblastic leukemia, not having achieved remission (principal)
CPT/HCPCS: 36430; 36591; 80053; 85007; 85025; 85027; 86850; J1642; J7050; P9016

== ENCOUNTER 2025-02-06 08:51 | Outpatient (CLI) | payer MEDICARE, BC, SELFPAY ==
[2025-02-06] VITALS (21 sets, daily range): BP systolic 108–131; BP diastolic 41–65; PULSE 68–79; RESP 15–17; TEMP 36.3–36.6; O2SAT 94–100; BMI 20.5
[2025-02-06 09:14] LABS: Hematocrit 22.7 % (37.0-47.0); Hemoglobin 7.7 g/dL (12.2-16.2); Immature Granulocytes % 0 %; Mean Corpuscular HGB Conc 33.9 g/dL (31.8-35.4); Mean Corpuscular Hemoglobin 30.0 pg (27.0-31.2); Mean Corpuscular Volume 88.3 fl (81-99); Nucleated Red Blood Cells % 3.6 %; Red Blood Count 2.57 M/mm3 (4.20-5.40); Red Cell Distribution Width-SD 59.0 fL
[2025-02-06 09:19] LABS: Platelet Count 2 K/mm3 (142-424); White Blood Count 0.8 K/mm3 (4.8-10.8)
[2025-02-06 09:25] LABS: Albumin Level 3.2 g/dl (3.5-5.0); Chloride 105 mmol/L (98-107); Sodium 134 mmol/L (136-145)
[2025-02-06 09:26] LABS: Potassium 3.5 mmoL/L (3.5-5.1)
[2025-02-06 09:28] LABS: Alanine Aminotransferase 15 U/L (12-78); Albumin/Globulin Ratio 1.2 (1.1-1.8); Alkaline Phosphatase 47 U/L (38-126); Anion Gap 7.5 mEq/L (5-15); Aspartate Amino Transferase 33 U/L (14-36); Bilirubin,Total 0.7 mg/dl (0.2-1.3); Blood Urea Nitrogen 27 mg/dl (7-17); Carbon Dioxide 25 mmol/L (22.0-30.0); Creatinine Clearance Estimated 42 mL/min (50-200); Creatinine,Serum 1.00 mg/dl (0.52-1.04); Estimated Glomerular Filt Rate 54 ml/min (>60); GFR (African American) 66 ML/MIN (>60); Globulin 2.6 g/dL (1.3-3.2); Total Protein,Serum 5.8 g/dl (6.3-8.2)
[2025-02-06 09:29] LABS: Calcium 8.7 mg/dl (8.4-10.2); Glucose 153 mg/dl (74-100)
[2025-02-06 09:57] LABS: RBC Morphology Normal; Total Cells Counted 20
[2025-02-06] MEDS: SODIUM CHLORIDE 0.9% 250ML BAG 250 ML IV (12:25)
--- NOTE | 2025-02-06 12:29 | PC.NURSE ---
1225-Platelets started infusing by gravity at this time.
[2025-02-06] MEDS: ACETAMINOPHEN 325MG TAB 650 MG (12:30)
--- NOTE | 2025-02-06 13:35 | PC.NURSE ---
1330-Blood transfusion started at 100ml/hr at this time.
--- NOTE | 2025-02-06 14:17 | PC.NURSE ---
1400-Increased rate to 200ml/hr at this time.
--- NOTE | 2025-02-06 14:33 | PC.NURSE ---
1430-Increased rate to 250 ml/hr at this time.
== END 2025-02-06 23:59 | disposition home or self-care (01) ==
LOC: INF 08:52
PROVIDERS: PCP Family Medicine; Visit Provider Internal Medicine Medical Oncology
DX: C92.00 Acute myeloblastic leukemia, not having achieved remission (principal)
CPT/HCPCS: 36430; 80053; 85007; 85025; 85027; 86850; J1642; J7050; P9016; P9034

== ENCOUNTER 2025-02-09 09:01 | Outpatient (CLI) | payer MEDICARE, BC, SELFPAY ==
--- OUTSIDE RECORDS SUMMARY | 2025-01-12 09:30 | XMS_ITS | Encounter Summary ---
Author Organization Healthcare Address [address] [place] [address] Care Team Providers Care Vamper Name Role Phone Jevon Vazquez MD Primary Care Provider [phone] Reason for Visit * Reason Comments Labs Encounter Details Date Type Department Care Team ([facility] Contact Info) Description 01/12/2025 9:30 AM EDT Clinical Support [facility] Hematology/BMT and Cellular Therapy Program [address] [phone] Social History Tobacco Use Types Packs/Day Years [...] Encounters Date Type Department Care Team ([facility] Contact Info) Description 03/03/2025 1:00 PM EST Clinical Support [facility] Hematology/BMT and Cellular Therapy Program [address] [phone] 03/03/2025 1:30 PM EST Office Visit [facility] Hematology/BMT and Cellular Therapy Program [address] [phone] Zonia Hoffman, GLUING MACHINE OFFBEARER 800 [facility] [address] [place] [phone] documented as of this encounter Visit Diagnoses Not on filedocumented in this encounter Additional Health Concerns Assessment Noted Time A fall risk assessment has been complete d for the patient 09/30/2024 9:33 AM EDT A Body Mass Index follow-up plan has been documented for the patient 05/28/2024 1:52 PM EST documented as of this encounter Care Teams Vamper Relationship Specialty Start Date End Date Jevon Vazquez MD [address] [place] [address] #1 #1 [place] [phone] PCP - General 03/23/22 documented as of this encounter
--- OUTSIDE RECORDS SUMMARY | 2025-01-12 10:00 | XMS_ITS | Encounter Summary ---
Author Organization [facility] Address [address] [place] [address] Care Team Providers Care Occupational Medicine Officer Name Role Phone Jevon Vazquez MD Primary Care Provider [phone] Reason for Visit * Genetic Testing (Routine) - Authorized Specialty Diagnoses / Procedures Referred By Rebecca barron Referred To Contact Lab Diagnoses Myelodysplastic syndrome (CMS/HCC) Procedures Leukemia/Lymphoma - Immunophenotyping by Flow Cytometry New Mckinney MD 800 [facility] Cancer [address] [address] Phone: tel: fax: Referral ID Status Reason Start Date Expiration Date V isits Requested Visits Authorized [id number] Authorized 12/29/2024 06/30/2026 1 1 Encounter Details Date Type Department Care Team (Latest Contact Info) Description 01/12/2025 10:00 AM EDT Procedure Visit [facility] Hematology/BMT and Cellular Therapy Program [address] [phone] Rebecca Barrientos PA 800 [facility] Cancer [address] [address] Myelodysplastic syndrome (CMS/HCC); Acute myeloid [...] CC HEMATOLOGY/BMT AND CELLULAR THERAPY PROGRAM [address] [facility] [phone] / documented in this encounter Plan of Treatment Upcoming Encounters Date Type Department Care Team ([facility] st Contact Info) Description 03/03/2025 1:00 PM EST Clinical Support [facility] Hematology/BMT and Cellular Therapy Program [address] [phone] 03/03/2025 1:30 PM EST Office Visit [facility] Hematology/BMT and Cellular Therapy Program [address] [phone] Zonia Hoffman, RODDY 800 [facility] [address] [place] [phone] documented as of this encounter Procedures Procedure [...] with this patient's previous abnormal results (see [id number]). Clinical correlation is recommended. Note: Per [employer] (CAP) requirement an additional karyotype was [...] [facility] [address] [place] [address] * Leukemia/Lymphoma - Immunophenotyping by Flow Cytometry [...] chains 01/12/2025 4:[address] [facility] Disclaimer This test was developed and its performance characteristics determined by the Immuno-Molecular Pathology Laboratory at the [facility]. It has not been cleared [...] testing. 01/12/2025 4:[address] [facility] Pathologist Signature Reviewed by: Asad Hartman MD 01/12/2025 4:19 PM EDT [facility] MRD Indicated Test Not Indicated 4:[address] [facility] Bone Marrow Specimen from bone marrow obtained by aspiration / Unknown Non-blood Collection / Unknown 01/12/2025 9:55 AM EDT 01/12/2025 1:48 PM EDT us New Mckinney MD LAB FLOW CYTOMETRY ORDERABLES Final Result [facility] [address] [place] [address] * Bone marrow exam (01/12/2025 9:55 AM EDT) Case Report Bone Marrow Case: [id number] Authorizing Provider: New Mckinney MD Collected: 01/12/2025 0955 Ordering Location: [facility] Hematology/BMT and Received: 01/12/2025 1143 Cellular Therapy [...] with this patient's previous abnormal results (see [facility]-[id number]). 5:16 PM EDT [facility] performed at the [facility] Clinical Laboratory, [address] [place] [address]. All tests reported here, except those addressing [...] partial dim CD7, CD38 and dim CD45 ([id number]). 5:16 PM T [facility] Gross Description B. LEFT A single specimen is received in formalin labeled bone marrow biopsy left posterior iliac crest and consists of 1 piece(s) of red/white tissue measuring 0.9 cm in length 0.2 cm in diameter. The specimen is submitted in to Histology for decalcification and routine processing. Cold Time: <1m 5:16 PM [facility] Note: A [...] [facility] [address] [place] [address] * (ABNORMAL) CBC and Differential (01/12/2025 9:15 AM EDT) WBC Count 1.31(L) 3.70 - 10.30 10*3/uL LAB HEMATOLOGY METHOD 01/12/2025 9:58 AM EDT [facility] RBC Count 2.70(L) 3.90 - 5.20 10*6/uL LAB HEMATOLOGY METHOD 01/12/2025 9:58 AM EDT [facility] HGB 8.4(L) 11.2 - 15.7 g/dL LAB HEMATOLOGY METHOD 01/12/2025 9:58 AM EDT [facility] HCT 25.0(L) 34.0 - 45.0 % LAB HEMATOLOGY METHOD 01/12/2025 9:58 AM EDT [facility] Platelet Count 31(L) 155 - 369 10*3/uL LAB HEMATOLOGY METHOD 01/12/2025 9:58 AM EDT [facility] MCV 93 79 - 98 fL LAB HEMATOLOGY METHOD 01/12/2025 9:58 AM EDT [facility] MCH 31.1 26.0 - 32.0 pg LAB HEMATOLOGY METHOD 01/12/2025 9:58 AM EDT [facility] MCHC 33.6 30.7 - 35.5 g/dL LAB HEMATOLOGY METHOD 01/12/2025 9:58 AM EDT [facility] RDW 20.0(H) 11.5 - 14.5 % LAB HEMATOLOGY METHOD 01/12/2025 9:58 AM EDT [facility] MPV 8.8 8.8 - 12.5 fL LAB HEMATOLOGY METHOD 01/12/2025 9:58 AM EDT [facility] nRBC 3.1(H) <=0.0 per 100 WBCs LAB HEMATOLOGY METHOD 01/12/2025 9:58 AM EDT [facility] Differential Type Automated LAB HEMATOLOGY METHOD 01/12/2025 9:58 AM EDT [facility] Neutrophils % 19 % LAB HEMATOLOGY METHOD 01/12/2025 9:58 AM EDT [facility] Lymphocytes % 64 % LAB HEMATOLOGY METHOD 01/12/2025 9:58 AM EDT [facility] Monocytes % 15 % LAB HEMATOLOGY METHOD 01/12/2025 9:58 AM EDT [facility] Eosinophils % 2 % LAB HEMATOLOGY METHOD 01/12/2025 9:58 AM EDT [facility] Basophils % 0 % LAB HEMATOLOGY METHOD 01/12/2025 9:58 AM EDT [facility] Immature Granulocytes % 0 % LAB HEMATOLOGY METHOD 01/12/2025 9:58 AM EDT [facility] Neutrophils Absolute 0.25(LL) 1.60 - 6.10 10*3/uL LAB HEMATOLOGY METHOD 01/12/2025 9:58 AM EDT [facility] Lymphocytes Absolute 0.84(L) 1.20 - 3.90 10*3/uL LAB HEMATOLOGY METHOD 01/12/2025 9:58 AM EDT [facility] Monocytes Absolute 0.20(L) 0.30 - 0.90 10*3/uL LAB HEMATOLOGY METHOD 01/12/2025 9:58 AM EDT [facility] Eosinophils Absolute 0.02 0.00 - 0.50 10*3/uL LAB HEMATOLOGY METHOD 01/12/2025 9:58 AM EDT [facility] Basophils Absolute 0.00 0.00 - 0.10 10*3/uL LAB HEMATOLOGY METHOD 01/12/2025 9:58 AM EDT [facility] Immature Granulocytes Absolute 0.00 0.00 - 0.06 10*3/uL LAB HEMATOLOGY METHOD 01/12/2025 9:58 AM EDT [facility] Blood Blood sample taken from central line / Unknown (Port) Long-term Catheter / Unknown 01/12/2025 9:15 AM EDT 01/12/2025 9:31 AM EDT [facility] - 01/12/2025 9:58 AM EDT Therapeutic decision making should be based on absolute values, rather than percentages. us New Mckinney MD LAB BLOOD ORDERABLES Final Re sult [facility] [address] [place] [address] * (ABNORMAL) Comprehensive Metabolic Panel, Plasma (01/12/2025 [...] [facility] [address] [place] [address] documented in this encounter Visit Diagnoses Diagnosis [...] documented as of this encounter Care Teams Occupational Medicine Officer Relationship Specialty Start Date End Date Jevon Vazquez MD [address] [place] [address] #1 #1 [place] [phone] PCP - General 03/23/22 documented as of this encounter
--- OUTSIDE RECORDS SUMMARY | 2025-01-27 15:00 | XMS_ITS | Encounter Summary ---
Author Organization Healthcare Address [address] [place] [address] Care Team Providers Care Accounts Receivable Executive Name Role Phone Jevon Vazquez MD Primary Care Provider [phone] Reason for Visit * Reason Comments Labs Port Flush Encounter Details Date Type Department Care Team ([facility] Contact Info) Description 01/27/2025 3:00 PM EDT Clinical Support [facility] Hematology/BMT and Cellular Therapy Program [address] [place] [phone] Oscar Cortez, RN Social History Tobacco Use [...] ([facility] Contact Info) Description 03/03/2025 1:00 PM EST Clinical Support [facility] Hematology/BMT and Cellular Therapy Program [address] [phone] 03/03/2025 1:30 PM EST Office Visit [facility]ematology/BMT and Cellular Therapy Program [address] [phone] Zonia Hoffman, PARAMEDICAL AIDE 800 [facility] [address] [place] [phone] documented as of this encounter Visit Diagnoses Not on filedocumented in this encounter Additional Health Concerns Assessment Noted Time A fall risk assessment has been complete d for the patient 01/27/2025 3:25 PM EDT A Body Mass Index follow-up plan has been documented for the patient 05/28/2024 1:52 PM EST documented as of this encounter Care Teams Accounts Receivable Executive Relationship Specialty Start Date End Date Jevon Vazquez MD [address] [place] [address] #1 #1 [place] [phone] PCP - General 03/23/22 documented as of this encounter
--- OUTSIDE RECORDS SUMMARY | 2025-01-27 15:30 | XMS_ITS | Encounter Summary ---
Author Organization [facility] Address 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) New Mckinney MD [address] [address] Phone: tel: fax: Referral ID Status Reason Start Date Expiration Date V isits Requested Visits Authorized [id number] Authorized 04/16/2024 01/27/2026 1 1 * Consultation (Urgent) - Authorized Specialty Diagnoses / Procedures Referred By Contac t Referred To Contact Medical Oncology Diagnoses 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) New Mckinney MD [address] [address] Phone: tel: fax: [address] [address] Phone: tel: Referral ID Status Reason Start Date Expiration Date Visits Requested Visits Authorized [id number] Authorized Specialty Services Required 07/29/2026 1 1 * Consultation (Urgent) - Authorized Specialty Diagnoses / Procedures Referred By Contac t Referred To Contact Medical Oncology Diagnoses 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) New Mckinney MD 800 [facility] [address] [address] Phone: tel: fax: [facility] [address] [place] [address] Phone: tel: Referral ID Status Reason Start Date Expiration Date Visits Requested Visits Authorized [id number] Authorized Specialty Services Required 07/29/2026 1 1 Encounter Details Date Type Department Care Team (Latest Contact Info) Description 01/27/2025 3:30 PM EDT Office Visit [facility] Hematology/BMT and Cellular Therapy Program [address] [address] New Mckinney MD 800 [facility] [address] [place] [phone] Encounter for antineoplastic immunotherapy (Primary Dx); [...] by Dr. Manzano in [facility] for evaluation of anemia and lymphocytosis. 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 Next generation sequencing: Abnormal: TP53 (c.814G>A; p.Rba892Pnu) frequency 45%, DMNT3A (c.1522delC; p.[id number]) frequency 48%, RUNX1 (c.336_338delGCC; p.Uuq503zlx) frequency 35% Azacitidine + Venetoclax Cycle 1: [...] 5x/week monthly. - Will send referrals to [facility] and [place] for clinical trial evaluations. 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 Check CBC x 3 times/week at [facility] Labs reviewed today, Hgb 7.7 , platelets [...] understand that therapeutic options are limited, and pnvuv-wz-nxhs discussions remain essential moving forward. We will start oral decitabine and refer to [place] and [facility] for clinical trial evaluations * Progress [...] Cycle 2: 03/22/24 Assessment/Plan: Rx sent to [facility]. Refills due 02/2025. Patient will return [...] [facility] st Contact Info) Description 03/03/2025 1:00 PM EST Clinical Support [facility] Hematology/BMT and Cellular Therapy Program [address] [phone] 03/03/2025 1:30 PM EST Office Visit [facility] Hematology/BMT and Cellular Therapy Program [address] [phone] Zonia Hoffman, DISPATCHER [employer]OT 800 [facility] [address] [place] [phone] Scheduled Referrals Name Type Priority Associated Diagnoses [...] Re sult [facility] 800 [place] [address] * (ABNORMAL) CBC and Differential (01/27/2025 3:00 PM EDT) WBC Count 1.22(L) 3.70 - 10.30 10*3/uL LAB HEMATOLOGY METHOD 01/27/2025 3:21 PM EDT [facility] RBC Count 2.90(L) 3.90 - 5.20 10*6/uL LAB HEMATOLOGY METHOD 01/27/2025 3:21 PM EDT [facility] HGB 8.9(L) 11.2 - 15.7 g/dL LAB HEMATOLOGY METHOD 01/27/2025 3:21 PM EDT [facility] HCT 26.3(L) 34.0 - 45.0 % LAB HEMATOLOGY METHOD 01/27/2025 3:21 PM EDT [facility] Platelet Count 23(L) 155 - 369 10*3/uL LAB HEMATOLOGY METHOD 01/27/2025 3:21 PM EDT [facility] MCV 91 79 - 98 fL LAB HEMATOLOGY METHOD 01/27/2025 3:21 PM EDT [facility] MCH 30.7 26.0 - 32.0 pg LAB HEMATOLOGY METHOD 01/27/2025 3:21 PM EDT [facility] MCHC 33.8 30.7 - 35.5 g/dL LAB HEMATOLOGY METHOD 01/27/2025 3:21 PM EDT [facility] RDW 17.7(H) 11.5 - 14.5 % LAB HEMATOLOGY METHOD 01/27/2025 3:21 PM EDT [facility] MPV 9.0 8.8 - 12.5 fL LAB HEMATOLOGY METHOD 01/27/2025 3:21 PM EDT [facility] nRBC 2.5(H) <=0.0 per 100 WBCs LAB HEMATOLOGY METHOD 01/27/2025 3:21 PM EDT [facility] Differential Type Automated LAB HEMATOLOGY METHOD 01/27/2025 3:21 PM EDT [facility] Neutrophils % 9 % LAB HEMATOLOGY METHOD 01/27/2025 3:21 PM EDT [facility] Lymphocytes % 78 % LAB HEMATOLOGY METHOD 01/27/2025 3:21 PM EDT [facility] Monocytes % 12 % LAB HEMATOLOGY METHOD 01/27/2025 3:21 PM EDT [facility] Eosinophils % 1 % LAB HEMATOLOGY METHOD 01/27/2025 3:21 PM EDT [facility] Basophils % 0 % LAB HEMATOLOGY METHOD 01/27/2025 3:21 PM EDT [facility] Immature Granulocytes % 0 % LAB HEMATOLOGY METHOD 01/27/2025 3:21 PM EDT [facility] Neutrophils Absolute 0.11(LL) 1.60 - 6.10 10*3/uL LAB HEMATOLOGY METHOD 01/27/2025 3:21 PM EDT [facility] Lymphocytes Absolute 0.95(L) 1.20 - 3.90 10*3/uL LAB HEMATOLOGY METHOD 01/27/2025 3:21 PM EDT [facility] Monocytes Absolute 0.15(L) 0.30 - 0.90 10*3/uL LAB HEMATOLOGY METHOD 01/27/2025 3:21 PM EDT [facility] Eosinophils Absolute 0.01 0.00 - 0.50 10*3/uL LAB HEMATOLOGY METHOD 01/27/2025 3:21 PM EDT [facility] Basophils Absolute 0.00 0.00 - 0.10 10*3/uL LAB HEMATOLOGY METHOD 01/27/2025 3:21 PM EDT [facility] Immature Granulocytes Absolute 0.00 0.00 [...] ORDERABLES Final Re sult Performing Organization Address City/State/[facility] Co de Phone Number HEALTHCARE LAB [address] [place] [address] documented in this encounter Visit Diagnoses Diagnosis [...] documented as of this encounter Care Teams Plow Holder Relationship Specialty Start Date End Date Jevon Vazquez MD [address] [place] [address] #1 #1 Julien JOSEP [id number] PCP - General 03/23/22 documented as of this encounter
--- OUTSIDE RECORDS SUMMARY | 2025-02-09 09:11 | XMS_ITS | Encounter Summary ---
Author Organization [facility] Address [address] [place] [address] Care Team Providers Care Drying Room Operator Name Role Phone Jevon Vazquez MD Primary Care Provider [phone] Reason for Visit * Reason Comments Med Refill Encounter Details Date Type Department Care Team ([facility] Contact Info) Description 02/02/2025 Refill [facility] Hematology/BMT and Cellular Therapy Program [address] [phone] Zonia Hoffman, SPLICING MACHINE OPERATOR AUTOMATIC 800 [facility] [address] [place] [phone] Social History Tobacco Use Types Packs/Day Years [...] [facility] Info) Description 03/03/2025 1:00 PM EST Clinical Support [facility] Hematology/BMT and Cellular Therapy Program [address] [phone] 03/03/2025 1:30 PM EST Office Visit [facility] Hematology/BMT and Cellular Therapy Program [address] [phone] Zonia Hoffman, SPLICING MACHINE OPERATOR AUTOMATIC 800 [facility] [address] [place] [address] documented as of this encounter Visit Diagnoses Not on filedocumented in this encounter Additional Health Concerns Assessment Noted Time A fall risk assessment has been complete d for the patient 01/27/2025 3:25 PM EDT A Body Mass Index follow-up plan has been documented for the patient 05/28/2024 1:52 PM EST documented as of this encounter Care Teams Drying Room Operator Relationship Specialty Start Date End Date Jevon Vazquez MD [address] [place] [address] #1 [address] [place] [address] PCP - General 03/23/22 documented as of this encounter
--- OUTSIDE RECORDS SUMMARY | 2025-02-09 09:11 | XMS_ITS | Encounter Summary ---
Author Organization Healthcare Address [address] [place] [address] Care Team Providers Care Bottle Selector Name Role Phone Jevon Vazquez MD Primary Care Provider [phone] Encounter Details Date Type Department Care Team (Late Contact Info) Description 01/16/2025 Telephone [facility] Hematology/BMT and Cellular Therapy Program [address] [place] [address] [place] [address] Daxa Elliott RN [facility] Social [...] Hematology/BMT and Cellular Therapy Program [address] [place] [address] 03/03/2025 1:30 PM EST Office Visit [facility] Hematology/BMT and Cellular Therapy Program 750 [facility] [place] [phone] Zonia Hoffman, ELECTRICAL CONTACTS ADJUSTER 800 [facility] [address] [place] [phone] documented as of this encounter Visit Diagnoses Not on filedocumented in this encounter Additional Health Concerns Assessment Noted Time A fall risk assessment has been complete d for the patient 09/30/2024 9:33 AM EDT A Body Mass Index follow-up plan has been documented for the patient 05/28/2024 1:52 PM EST documented as of this encounter Care Teams Bottle Selector Relationship Specialty Start Date End Date Jevon Vazquez MD [address] [place] [address] [address]1 [address]1 [place] [address] PCP - General 03/23/22 documented as of this encounter
--- OUTSIDE RECORDS SUMMARY | 2025-02-09 09:11 | XMS_ITS | Encounter Summary ---
Author Organization Healthcare Address [address] [place] [address] Care Team Providers Care Software Engineer Backend Name Role Phone Jevon Vazquez MD Primary Care Provider [phone] Encounter Details Date Type Department Care Team ([facility] Contact Info) Description 12/11/2024 Telephone P[facility] CC Hematology/BMT and Cellular Therapy Program [address] [phone] New Mckinney MD 800 [facility] [address] [place] [phone] Social History Tobacco Use Types Packs/Day Years [...] PM EDT Rn uploaded recent labs to [facility] and rescheduled appointments to 12/30. RN returned call to patient with updated plan of care and schedule. documented in this encounter Plan of Treatment Upcoming Encounters Date Type Department Care Team (Late Contact Info) Description 03/03/2025 1:00 PM EST Clinical Support PAV Hematology/BMT and Cellular Therapy Program [address] [place] [address] 03/03/2025 1:30 PM EST Office Visit PAV Hematology/BMT and Cellular Therapy Program [address] [place] [address] Zonia Hoffman, RETAIL CLERK 800 [facility] [address] [place] [phone] documented as of this encounter Visit Diagnoses Not on filedocumented in this encounter Additional Health Concerns Assessment Noted Time A fall risk assessment has been complete d for the patient 09/30/2024 9:33 AM EDT A Body Mass Index follow-up plan has been documented for the patient 05/28/2024 1:52 PM EST documented as of this encounter Care Teams Software Engineer Backend Relationship Specialty Start Date End Date Jevon Vazquez MD [address] [place] [address] #1 #1 [place] [address] PCP - General 03/23/22 documented as of this encounter
--- OUTSIDE RECORDS SUMMARY | 2025-02-09 09:11 | XMS_ITS ---
Author Organization Healthcare Address [address] [place] [address] Care Team Providers Care Leak Gang Supervisor Name Role Phone Jevon Vazquez MD Primary Care Provider [phone] Active Problems Problem Noted Date Diagnosed Date [...]
--- OUTSIDE RECORDS SUMMARY | 2025-02-09 09:11 | XMS_ITS | Encounter Summary ---
Author Organization [facility] Address [address] [place] [address] Care Team Providers Care Testing Projects Administrator Name Role Phone Jevon Vazquez MD Primary Care Provider [phone] Reason for Visit * Reason Comments Med Refill Encounter Details Date Type Department Care Team ([facility] Contact Info) Description 01/05/2025 Refill [facility] CC Hematology/BMT and Cellular Therapy Program [address] [phone] Zonia Hoffman, COTTONSEED MEAT PRESSER 800 [facility] [address] [place] [phone] Social History Tobacco Use Types Packs/Day Years [...] ([facility] Contact Info) Description 03/03/2025 1:00 PM EST Clinical Support P[facility] CC Hematology/BMT and Cellular Therapy Program [address] [phone] 03/03/2025 1:30 PM EST Office Visit P[facility] CC Hematology/BMT and Cellular Therapy Program [address] [phone] Zonia Hoffman, COTTONSEED MEAT PRESSER 800 [facility] [address] [place] [address] documented as of this encounter Visit Diagnoses Not on filedocumented in this encounter Additional Health Concerns Assessment Noted Time A fall risk assessment has been complete d for the patient 09/30/2024 9:33 AM EDT A Body Mass Index follow-up plan has been documented for the patient 05/28/2024 1:52 PM EST documented as of this encounter Care Teams Testing Projects Administrator Relationship Specialty Start Date End Date Jevon Vazquez MD [address] [place] [address] #1 [address]1 [place] [address] PCP - General 03/23/22 documented as of this encounter
--- OUTSIDE RECORDS SUMMARY | 2025-02-09 09:11 | XMS_ITS | Clinical Summary ---
Author Organization [facility] Address [address] [place] [address] Care Team Providers Care Record Center Coordinator Name Role Phone David Vazquez Primary Care Provider [phone] Allergies No known active allergies Medications atorvastatin [...] Discontinued 01/24/2023 Medical Devices Implanted Type Area Leather Stamper Device Identifier Shelf Expiration Date Model / Serial / Lot Mis Ply Scr 6.5x50mm - [id number] Implanted:Qty : 1 on 01/30/2023 by Ivan Bartholomew MD at [facility] Screw N/A: Spine Lumbar [employer] [id number] / / Mis Ply Scr 6.5x45mm - [id number] Implanted:Qty : 3 on 01/30/2023 by Ivan Bartholomew MD at [facility] [place] Screw N/A: Spine Lumbar [employer] [id number] / / Reline Mas Reduction Screw 7.5x45 - [id number] Implanted:Qty : 2 on 01/30/2023 by Ivan Bartholomew MD at [facility] [place] Screw N/A: Spine Lumbar [employer] [id number] / / Grft Dbm Vesuvius Putty 5cc - [id number] Implanted:Qty : 1 on 01/30/2023 by Ivan Bartholomew MD at [facility] [place] [employer] [id number] 04/20/2025 [id number] P / [id number] 1 / Putty I-Factor 5.0cc - [id number] Implanted:Qty : 1 on 01/30/2023 by Ivan Bartholomew MD at [facility] [place] N/A: Spine Lumbar [employer] 03/15/2025 [id number] / / [id number] Modulus Xlw [id number] 10 Degree - [id number] Implanted:Qty : 1 on 01/30/2023 by Ivan Bartholomew MD at [facility] N/A: Spine Lumbar [employer] [id number] / / [id number] Modulus Xlw [id number] - [id number] Implanted:Qty : 1 on 01/30/2023 by Ivan Bartholomew MD at [facility] [place] N/A: Spine Lumbar [employer] 09/28/2027 [id number] / / [id number] Reln Lock Scr 5.5mm Opn Tulip - [id number] Implanted:Qty : 6 on 01/30/2023 by Ivan Bartholomew MD at [facility] [place] N/A: Spine Lumbar [employer] [id number] / / Reln Mas Ti Petar 5.5x70mm - [id number] Implanted:Qty : 2 on 01/30/2023 by Ivan Bartholomew MD at [facility] N/A: Spine Lumbar [employer] [id number] / / Procedures Procedure Name Priority Date/Time [...] LAB Glucose 125(H) 71 - 99 mg/dL [facility] Comment:Reference range (71- 99 [...] mL/min/1.73m2. Calcium 10.3 8.5 - 10.5 mg/dL [facility] BUN/Creatinine Ratio 14 [facility] Serum 01/24/2023 2:32 PM EDT 01/24/2023 5:54 PM EDT Lexi SUAREZ CHEMISTRY ORDERABLES Final Resu lt [facility] [address] from Last 3 Months or Most Recently Relevant to Health Maintenance Insurance MEDICARE Member Subscriber Plan / Payer (Ef fective 2016-Present) Name:Ashly Briceño Member ID:[id number] Relation to Subscriber:Self Name:Ashly Briceño Subscriber ID:[id number] Payer ID:[id number] Group ID:Not on file Type:Medicare Address: [facility] J15 PART A [facility] [place] [address] [place] [place] [address] [facility] Advance Directives For more information, please contact: [phone] * Full Code (Latest Code Status on File) Date Activated Date Inactivated Comments 01/30/2023 9:13 AM No automated chest compression devices for [facility] Patients Care Teams Record Center Coordinator Relationship Specialty Start Date End Date David Vazquez [address] [place] [address] PCP - General 01/24/23
--- OUTSIDE RECORDS SUMMARY | 2025-02-09 09:11 | XMS_ITS | Encounter Summary ---
Author Organization Healthcare Address [address] [place] [address] Care Team Providers Care Talent Acquisition Specialist Name Role Phone Jevon Vazquez MD Primary Care Provider [phone] Encounter Details Date Type Department Care Team [...] Hematology/BMT and Cellular Therapy Program [address] [phone] 03/03/2025 1:30 PM EST Office Visit [facility] CC Hematology/BMT and Cellular Therapy Program [address] [phone] Zonia Hoffman, LURER 800 [facility] [address] [place] [phone] documented as of this encounter Visit Diagnoses Not on filedocumented in this encounter Additional Health Concerns Assessment Noted Time A fall risk assessment has been complete d for the patient 09/30/2024 9:33 AM EDT A Body Mass Index follow-up plan has been documented for the patient 05/28/2024 1:52 PM EST documented as of this encounter Care Teams Talent Acquisition Specialist Relationship Specialty Start Date End Date Jevon Vazquez MD [address] [place] [address] #1 #1 [place] [address] PCP - General 03/23/22 documented as of this encounter
--- OUTSIDE RECORDS SUMMARY | 2025-02-09 09:11 | XMS_ITS | Encounter Summary ---
Author Organization [facility] Address [address] [place] [address] Care Team Providers Care Social Work Supervisor Name Role Phone Jevon Vazquez MD Primary Care Provider [phone] Encounter Details Date Type Department Care Team ([facility] Contact Info) Description 01/07/2025 Telephone [facility] CC Hematology/BMT and Cellular Therapy Program [address] [phone] Sabine Clemons MD 800 [facility] [address] [place] [phone] Social History Tobacco Use Types Packs/Day Years [...] ([facility] Contact Info) Description 03/03/2025 1:00 PM EST Clinical Support P[facility] CC Hematology/BMT and Cellular Therapy Program [address] [phone] 03/03/2025 1:30 PM EST Office Visit [facility] CC Hematology/BMT and Cellular Therapy Program [address] [phone] Zonia Hoffman, VIDEO CLERK 800 [facility] [address] [place] [address] documented as of this encounter Visit Diagnoses Not on filedocumented in this encounter Additional Health Concerns Assessment Noted Time A fall risk assessment has been complete d for the patient 09/30/2024 9:33 AM EDT A Body Mass Index follow-up plan has been documented for the patient 05/28/2024 1:52 PM EST documented as of this encounter Care Teams Social Work Supervisor Relationship Specialty Start Date End Date Jevon Vazquez MD [address] [place] [address] #1 #1 [place] [address] PCP - General 03/23/22 documented as of this encounter
--- OUTSIDE RECORDS SUMMARY | 2025-02-09 09:11 | XMS_ITS | Encounter Summary ---
Author Organization Healthcare Address [address] [place] [address] Care Team Providers Care Informatica Name Role Phone Jevon Vazquez MD Primary Care Provider [phone] Encounter Details Date Type Department Care Team [...] Hematology/BMT and Cellular Therapy Program [address] [phone] 03/03/2025 1:30 PM EST Office Visit [facility] CC Hematology/BMT and Cellular Therapy Program [address] [phone] Zonia Hoffman, VOIP NETWORK ENGINEER 800 [facility] [address] [place] [phone] documented as of this encounter Visit Diagnoses Not on filedocumented in this encounter Additional Health Concerns Assessment Noted Time A fall risk assessment has been complete d for the patient 09/30/2024 9:33 AM EDT A Body Mass Index follow-up plan has been documented for the patient 05/28/2024 1:52 PM EST documented as of this encounter Care Teams Informatica Relationship Specialty Start Date End Date Jevon Vazquez MD [address] [place] [address] #1 #1 [place] [address] PCP - General 03/23/22 documented as of this encounter
--- OUTSIDE RECORDS SUMMARY | 2025-02-09 09:11 | XMS_ITS | Encounter Summary ---
Author Organization Healthcare Address [address] [place] [address] Care Team Providers Care Door Person Name Role Phone Jevon Vazquez MD Primary Care Provider [phone] Encounter Details Date Type Department Care Team [...] Hematology/BMT and Cellular Therapy Program [address] [phone] 03/03/2025 1:30 PM EST Office Visit [facility] CC Hematology/BMT and Cellular Therapy Program [address] [phone] Zonia Hoffman, POST ANESTHESIA ROOM NURSE 800 [facility] [address] [place] [phone] documented as of this encounter Visit Diagnoses Not on filedocumented in this encounter Additional Health Concerns Assessment Noted Time A fall risk assessment has been complete d for the patient 09/30/2024 9:33 AM EDT A Body Mass Index follow-up plan has been documented for the patient 05/28/2024 1:52 PM EST documented as of this encounter Care Teams Door Person Relationship Specialty Start Date End Date Jevon Vazquez MD [address] [place] [address] #1 #1 [place] [address] PCP - General 03/23/22 documented as of this encounter
--- OUTSIDE RECORDS SUMMARY | 2025-02-09 09:11 | XMS_ITS | Encounter Summary ---
Author Organization Healthcare Address [address] [place] [address] Care Team Providers Care Director Business Intelligence Name Role Phone Jevon Vazquez MD Primary Care Provider [phone] Encounter Details Date Type Department Care Team ([facility] Contact Info) Description 12/29/2024 Telephone P[facility] CC Hematology/BMT and Cellular Therapy Program [address] [phone] Bibiana Sepulveda, HIGH SCHOOL COORDINATOR 800 [facility] [address] [place] [phone] Social History Tobacco Use Types Packs/Day Years [...] wants to repeat BMBx. She verbalizes understanding. Fishing Manager made aware. documented in this encounter Plan of Treatment Upcoming Encounters Date Type Department Care Team ([facility] Contact Info) Description 03/03/2025 1:00 PM EST Clinical Support P[facility] CC Hematology/BMT and Cellular Therapy Program [address] [place] [address] 03/03/2025 1:30 PM EST Office Visit PAV Hematology/BMT and Cellular Therapy Program [address] [place] [address] Zonia Hoffman, HIGH SCHOOL COORDINATOR 800 [facility] [address] [place] [phone] documented as of this encounter Visit Diagnoses Not on filedocumented in this encounter Additional Health Concerns Assessment Noted Time A fall risk assessment has been complete d for the patient 09/30/2024 9:33 AM EDT A Body Mass Index follow-up plan has been documented for the patient 05/28/2024 1:52 PM EST documented as of this encounter Care Teams Director Business Intelligence Relationship Specialty Start Date End Date Jevon Vazquez MD [address] [place] [address] #1 #1 [place] [address] PCP - General 03/23/22 documented as of this encounter
--- OUTSIDE RECORDS SUMMARY | 2025-02-09 09:11 | XMS_ITS | Encounter Summary ---
Author Organization [facility] Address [address] [place] [address] Care Team Providers Care Vending Machine Servicer Name Role Phone Jevon Vazquez MD Primary Care Provider [phone] Reason for Referral * Genetic Testing (Routine) - Closed Specialty Diagnoses / Procedures Referred By Rebecca Referred To Contact Lab Diagnoses Myelodysplastic syndrome (CMS/HCC) Procedures Cytogenetics Testing, Oncology New Mckinney MD [address] [address] Phone: tel: fax: Referral ID Status Reason Start Date Expiration Date Visits Re quested Visits Authorized [id number] Closed 12/29/2024 06/30/2026 1 1 * Genetic Testing (Routine) - Authorized Specialty Diagnoses / Procedures [facility] Referred To Contact Lab Diagnoses Myelodysplastic syndrome (CMS/HCC) Procedures Leukemia/Lymphoma - Immunophenotyping by Flow Cytometry New Mckinney MD 800 [facility] [address] [address] Phone: tel: fax: Referral ID Status Reason Start Date Expiration Date V isits Requested Visits Authorized [id number] Authorized 12/29/2024 06/30/2026 1 1 * Genetic Testing (Routine) - Authorized Specialty Diagnoses / Procedures [facility] Referred To Contact Lab Diagnoses Myelodysplastic syndrome (CMS/HCC) Procedures Bone marrow exam New Mckinney MD 800 [facility] [address] [place] [phone] Phone: tel: fax: Referral ID Status Reason Start Date Expiration Date V isits Requested Visits Authorized [id number] Authorized 12/29/2024 06/30/2026 1 1 Encounter Details Date Type Department Care Team ([facility] Contact Info) Description 12/29/2024 Orders Only P[facility] CC Hematology/BMT and Cellular Therapy Program [address] [place] [address] New Mckinney MD 800 [facility] [address] [place] [phone] Myelodysplastic syndrome (CMS/HCC) (Primary Dx) Social [...] Hematology/BMT and Cellular Therapy Program [address] [place] [address] 03/03/2025 1:30 PM EST Office Visit [facility] CC Hematology/BMT and Cellular Therapy Program [address] [place] [address] Zonia Hoffman APRN 800 [facility] [address] [address] documented as of this encounter Results * Leukemia/Lymphoma - Immunophenotyping by Flow Cytometry (01/12/2025 9:55 AM EDT) Clinical Indication MDS 01/12/2025 4:19 PM EDT [facility] Flow Cytometry Interpretation APPROXIMATELY 27% MYELOID BLASTS EXPRESSING CD34, CD117, VARIABLE CD33, PARTIAL CD56, VARIABLE HLA-DR, PARTIAL DIM CD7, CD38 AND DIM CD45, SEE COMMENT, BBONE MARROW ASPIRATE. 01/12/2025 4:19 PM EDT [facility] Comments Specimen viability is 89%. [...] light chains 01/12/2025 4:19 PM EDT [facility] Disclaimer This test was developed and its performance characteristics determined by the Immuno-Molecular Pathology Laboratory at the [facility]. It has not been cleared [...] clinical laboratory testing. 01/12/2025 4:19 PM EDT [facility] Pathologist Signature Reviewed by: Asad Hartman MD 01/12/2025 4:19 PM EDT [facility] MRD Indicated Test Not Indicated 4:19 PM EDT [facility] Bone Marrow Specimen from bone marrow obtained by aspiration / Unknown Non-blood Collection / Unknown 01/12/2025 9:55 AM EDT 01/12/2025 1:48 PM EDT us New Mckinney MD LAB FLOW CYTOMETRY ORDERABLES Final Result [facility] [address] [place] [address] * Bone marrow exam (01/12/2025 9:55 AM EDT) Case Report Bone Marrow Case: [id number] Authorizing Provider: New Mckinney MD Collected: 01/12/2025 0955 Ordering Location: [facility] Hematology/BMT and Received: 01/12/2025 [facility] Cellular Therapy Program Pathologist: Asad Hartman MD Specimens: A) - Bone Marrow Aspirate, left B) - Bone Marrow Biopsy, left C) - Peripheral Blood for Bone Marrow 5:16 PM EDT [facility] Cytogenetics Report, Addendum Chromosome Analysis Result: Giemsa-banded metaphase cells from unstimulated bone marrow cultures showed the following chromosome pattern: 43~44,X,-X,add(5)( q23),del(5)(q13q33 ),todd(7)ins?(7)(q1 1.2q11.2)t(7;12)(q 11.2;q13),-12,todd( 17)add(17)(p13.2)a dd(17)(q21)[16]/88 ,XX,idemx2[cp3]/46 ,XY[1] Interpretation: Abnormal female chromosome analysis. 95% of metaphase cells analyzed showed clonal abnormalities consistent with this patient's previous abnormal results (see [facility]-[id number]). 5:16 PM EDT [facility] Addendum electronically signed by Asad Hartmna MD on 01/23/2025 at 1716 EDT Final Diagnosis PERIPHERAL BLOOD AND BONE MARROW, LEFT POSTERIOR ILIAC CREST, (PERIPHERAL SMEAR, ASPIRATE SMEAR, AND CORE BIOPSY): - HYPOCELLULAR BONE MARROW WITH MARKEDLY DECREASED MEGAKARYOCYTES, DECREASED MATURING GRANULOPOIESIS, APPROXIMATELY 7-10% VARIABLY DISTRIBUTED BLASTS AND MORE THAN 50% RING SIDEROBLASTS, SEE COMMENT. 5:16 PM EDT [facility] at 0941 EDT Comment The discrepancy between blasts percentage by morphologic assessment and flow cytometric analysis is due to erythroid precursors that constitute majority of bone marrow cellularity and are removed by flow cytometry. 5:16 PM EDT [facility] Clinical Information MDS 01/14 5:16 PM EDT [facility] CBC and Differential PERIPHERAL [...] cells. Platelets are decreased. 5:16 PM EDT [facility] Bone Marrow Differential BONE MARROW DIFFERENTIAL: 300 cells Normal Patient Neutrophils 15-50 12 Metamyelocytes 4-19 0 Myelocytes 1-18 1 Promyelocytes 1-8 0 Blasts 0-2 7 Monocytes 0-5 7 Erythroid 16-38 61 Lymphocytes 3-24 7 Eosinophils 0-6 3 Basophils 0-2 0 Plasma cells 0-4 2 Other 5:16 PM EDT [facility] Aspirate Smear The bone marrow [...] of erythroid precursors. 5 5:16 PM EDT [facility] Core Biopsy CELLULARITY: Variably cellular [...] trabeculae are normal. 5 5:16 PM EDT [facility] Special and Immunohistochemical Stains Immunohistochemica l [...] the [facility], [address] [place] [address]. All tests reported here, except those addressing [...] negativity on decalcified specimens. 5:16 PM EDT [facility] Flow Cytometry Interpretation Flow cytometric analysis demonstrates approximately 27% population of myeloid blasts in this patient with history of myelodysplastic syndrome; expressing CD34, CD117, variable CD33, partial CD56, variable HLA-DR, partial dim CD7, CD38 and dim CD45 ([id number]). 5:16 PM EDT [facility] Gross Description B. LEFT A single specimen is received in formalin labeled bone marrow biopsy left posterior iliac crest and consists of 1 piece(s) of red/white tissue measuring 0.9 cm in length 0.2 cm in diameter. The specimen is submitted in to Histology for decalcification and routine processing. Cold Time: <1m 5:16 PM EDT [facility] Note: A resident was involved in the service. I attest I examined the relevant preparations for the specimens and confirmed the diagnosis or interpretation. 5:16 PM EDT [facility] Bone Marrow Peripheral blood [...] PATHOLOGY ORDERABLES Edit ed Result - Final [facility] [address] [place] [address] documented in this encounter Visit Diagnoses Diagnosis [...] of this encounter Care Teams Vending Machine Servicer Relationship Specialty Start Date End Date Jevon Vazquez MD [address] [place] [address] #1 #1 [place] [address] PCP - General 03/23/22 documented as of this encounter
--- OUTSIDE RECORDS SUMMARY | 2025-02-09 09:11 | XMS_ITS | Encounter Summary ---
Author Organization Healthcare Address [address] [place] [address] Care Team Providers Care Export Specialist Name Role Phone Jevon Vazquez MD Primary Care Provider [phone] Encounter Details Date Type Department Care Team [...] Cellular Therapy Program [address] [phone] 03/03/2025 1:30 PM EST Office Visit [facility] Hematology/BMT and Cellular Therapy Program [address] [phone] Zonia Hoffman, FIRE ALARM OPERATOR 800 [facility] [address] [place] [phone] documented as of this encounter Visit Diagnoses Not on filedocumented in this encounter Additional Health Concerns Assessment Noted Time A fall risk assessment has been complete d for the patient 09/30/2024 9:33 AM EDT A Body Mass Index follow-up plan has been documented for the patient 05/28/2024 1:52 PM EST documented as of this encounter Care Teams Export Specialist Relationship Specialty Start Date End Date Jevon Vazquez MD [address] [place] [address] #1 #1 [place] [address] PCP - General 03/23/22 documented as of this encounter
--- OUTSIDE RECORDS SUMMARY | 2025-02-09 09:11 | XMS_ITS | Encounter Summary ---
Author Organization [facility] Address [address] [place] [address] Care Team Providers Care Data Analyst Report Writer Name Role Phone Jevon Vazquez MD Primary Care Provider Reason for Visit * Reason Comments Med Refill Encounter Details Date Type Department Care Team ([facility] Contact Info) Description 01/07/2025 Refill [facility] Hematology/BMT and Cellular Therapy Program [address] [phone] Zonia Hoffman, SENIOR POLICY ANALYST 800 [facility] [address] [place] [phone] Social History Tobacco Use Types Packs/Day Years [...] Hematology/BMT and Cellular Therapy Program [address] [phone] 03/03/2025 1:30 PM EST Office Visit [facility] Hematology/BMT and Cellular Therapy Program [address] [phone] Zonia Hoffman, SENIOR POLICY ANALYST 800 [facility] [address] [place] [address] documented as of this encounter Visit Diagnoses Not on filedocumented in this encounter Additional Health Concerns Assessment Noted Time A fall risk assessment has been complete d for the patient 09/30/2024 9:33 AM EDT A Body Mass Index follow-up plan has been documented for the patient 05/28/2024 1:52 PM EST documented as of this encounter Care Teams Data Analyst Report Writer Relationship Specialty Start Date End Date Jevon Vazquez MD [address] [place] [address] [address] [place] [address] PCP - General 03/23/22 documented as of this encounter
--- OUTSIDE RECORDS SUMMARY | 2025-02-09 09:11 | XMS_ITS | Encounter Summary ---
Author Organization Healthcare Address [address] [place] [address] Care Team Providers Care Breaker Engineer Name Role Phone Jevon Vazquez MD Primary Care Provider [phone] Encounter Details Date Type Department Care Team [...] Hematology/BMT and Cellular Therapy Program [address] [phone] 03/03/2025 1:30 PM EST Office Visit [facility] Hematology/BMT and Cellular Therapy Program [address] [phone] Zonia Hoffman, FICTION AND NONFICTION PROSE WRITER 800 [facility] [address] [place] [phone] documented as of this encounter Visit Diagnoses Not on filedocumented in this encounter Additional Health Concerns Assessment Noted Time A fall risk assessment has been complete d for the patient 09/30/2024 9:33 AM EDT A Body Mass Index follow-up plan has been documented for the patient 05/28/2024 1:52 PM EST documented as of this encounter Care Teams Breaker Engineer Relationship Specialty Start Date End Date Jevon Vazquez MD [address] [place] [address] [address]1 [address] [place] [address] PCP - General 03/23/22 documented as of this encounter
--- OUTSIDE RECORDS SUMMARY | 2025-02-09 09:11 | XMS_ITS | Encounter Summary ---
Author Organization [facility] Address [address] [place] [address] Care Team Providers Care Dumping Machine Operator Name Role Phone Jevon Vazquez MD Primary Care Provider [phone] Reason for Visit * Reason Comments Med Refill Encounter Details Date Type Department Care Team ([facility] Contact Info) Description 01/30/2024 Refill [facility] Hematology/BMT and Cellular Therapy Program [address] [phone] New Mckinney MD 800 [facility] [address] [place] [phone] Social History Tobacco Use Types Packs/Day Years [...] Hematology/BMT and Cellular Therapy Program [address] [phone] 03/03/2025 1:30 PM EST Office Visit [facility] Hematology/BMT and Cellular Therapy Program [address] [phone] Zonia Hoffman, CALL CENTER SUPPORT REPRESENTATIVE 800 [facility] [address] [place] [address] documented as of this encounter Visit Diagnoses Not on filedocumented in this encounter Additional Health Concerns Assessment Noted Time A fall risk assessment has been complete d for the patient 01/11/2024 9:16 AM EDT A Body Mass Index follow-up plan has been documented for the patient 01/21/2024 6:16 AM EDT documented as of this encounter Care Teams Dumping Machine Operator Relationship Specialty Start Date End Date Jevon Vazquez MD [address] [place] [address] [address] [place] [address] PCP - General 03/23/22 documented as of this encounter
--- OUTSIDE RECORDS SUMMARY | 2025-02-09 09:12 | XMS_ITS | Encounter Summary ---
Author Organization Healthcare Address [address] [place] [address] Care Team Providers Care Box Icer Name Role Phone Jevon Vazquez MD Primary Care Provider [phone] Encounter Details Date Type Department Care Team [...] Hematology/BMT and Cellular Therapy Program [address] [phone] 03/03/2025 1:30 PM EST Office Visit [facility] Hematology/BMT and Cellular Therapy Program [address] [phone] Zonia Hoffman, WOMEN'S SWIM COACH 800 [facility] [address] [place] [phone] documented as of this encounter Visit Diagnoses Not on filedocumented in this encounter Additional Health Concerns Assessment Noted Time A fall risk assessment has been complete d for the patient 09/30/2024 9:33 AM EDT A Body Mass Index follow-up plan has been documented for the patient 05/28/2024 1:52 PM EST documented as of this encounter Care Teams Box Icer Relationship Specialty Start Date End Date Jevon Vazquez MD [address] [place] [address] [address]1 [address] [place] [address] PCP - General 03/23/22 documented as of this encounter
--- OUTSIDE RECORDS SUMMARY | 2025-02-09 09:12 | XMS_ITS | Encounter Summary ---
Author Organization Healthcare Address [address] [place] [address] Care Team Providers Care Manager Sustainability Name Role Phone Jevon Vazquez MD Primary Care Provider [phone] Encounter Details Date Type Department Care Team [...] Hematology/BMT and Cellular Therapy Program [address] [phone] 03/03/2025 1:30 PM EST Office Visit [facility] Hematology/BMT and Cellular Therapy Program [address] [phone] Zonia Hoffman, PENSION AGENT 800 [facility] [address] [place] [phone] documented as of this encounter Visit Diagnoses Not on filedocumented in this encounter Additional Health Concerns Assessment Noted Time A fall risk assessment has been complete d for the patient 09/30/2024 9:33 AM EDT A Body Mass Index follow-up plan has been documented for the patient 05/28/2024 1:52 PM EST documented as of this encounter Care Teams Manager Sustainability Relationship Specialty Start Date End Date Jevon Vazquez MD [address] [place] [address] #1 [address]1 [place] [address] PCP - General 03/23/22 documented as of this encounter
--- OUTSIDE RECORDS SUMMARY | 2025-02-09 09:12 | XMS_ITS | Encounter Summary ---
Author Organization Healthcare Address [address] [place] [address] Care Team Providers Care Garment Inspector Name Role Phone Jevon Vazquez MD Primary Care Provider [phone] Encounter Details Date Type Department Care Team ([facility] Contact Info) Description 01/28/2025 Telephone [facility] Hematology/BMT and Cellular Therapy Program [address] [phone] New Mckinney MD 800 [facility] [address] [place] [phone] Social History Tobacco Use Types Packs/Day Years [...] patient to inform patient of appointment at [place] on 02/04. Patient was informed that a [employer] message will be sent with information. documented in this encounter Plan of Treatment Upcoming Encounters Date Type Department Care Team ([facility] Contact Info) Description 03/03/2025 1:00 PM EST Clinical Support [facility] Hematology/BMT and Cellular Therapy Program [address] [place] [address] 03/03/2025 1:30 PM EST Office Visit [facility] Hematology/BMT and Cellular Therapy Program [address] [place] [address] Zonia Hoffman, LAUNDRY EQUIPMENT OPERATOR 800 [facility] [address] [place] [phone] documented as of this encounter Visit Diagnoses Not on filedocumented in this encounter Additional Health Concerns Assessment Noted Time A fall risk assessment has been complete d for the patient 01/27/2025 3:25 PM EDT A Body Mass Index follow-up plan has been documented for the patient 05/28/2024 1:52 PM EST documented as of this encounter Care Teams Garment Inspector Relationship Specialty Start Date End Date Jevon Vazquez MD [address] [place] [address] #1 [address]1 [place] [address] PCP - General 03/23/22 documented as of this encounter
--- OUTSIDE RECORDS SUMMARY | 2025-02-09 09:12 | XMS_ITS | Encounter Summary ---
Author Organization [facility] Address [address] [place] [address] Care Team Providers Care Ophthalmic Medical Technician Name Role Phone Jevon Vazquez MD Primary Care Provider [phone] Encounter Details Date Type Department Care Team (Late st Contact Info) Description 01/27/2025 Telephone [facility] [address] [place] [phone] Emil Hardy, PharmD Social History Tobacco Use [...] Valdes, PharmD - 01/28/2025 2:40 PM EDT [facility] Specialty Medication Initial Care Plan Ashly [...] Injectable, preservative free 03/21/2024 Moderna COVID-19 Vaccine (Framework Developer) 12+ years 06/12/2020, 07/10/2020, 02/18/2021 Selected lab [...] Patient reports education was provided by clinic [facility]. She denied further education at this [...] Hematology/BMT and Cellular Therapy Program [address] [address] 03/03/2025 1:30 PM EST Office Visit PAV Hematology/BMT and Cellular Therapy Program [address] [address] Zonia Hoffman, ENAMEL BURNER 800 [facility] [address] [place] [phone] documented as of this encounter Visit Diagnoses Not on filedocumented in this encounter Additional Health Concerns Assessment Noted Time A fall risk assessment has been complete d for the patient 01/27/2025 3:25 PM EDT A Body Mass Index follow-up plan has been documented for the patient 05/28/2024 1:52 PM EST documented as of this encounter Care Teams Ophthalmic Medical Technician Relationship Specialty Start Date End Date Jevon Vazquez MD [address] [place] [address] #1 [address]1 [place] [address] PCP - General 03/23/22 documented as of this encounter
--- OUTSIDE RECORDS SUMMARY | 2025-02-09 09:12 | XMS_ITS | Encounter Summary ---
Author Organization Healthcare Address [address] [place] [address] Care Team Providers Care Manager Agency Name Role Phone Jevon Vazquez MD Primary Care Provider [phone] Encounter Details Date Type Department Care Team [...] Hematology/BMT and Cellular Therapy Program [address] [phone] 03/03/2025 1:30 PM EST Office Visit [facility] Hematology/BMT and Cellular Therapy Program [address] [phone] Zonia Hoffman, KILN MAINTENANCE 800 [facility] [address] [place] [phone] documented as of this encounter Visit Diagnoses Not on filedocumented in this encounter Additional Health Concerns Assessment Noted Time A fall risk assessment has been complete d for the patient 09/30/2024 9:33 AM EDT A Body Mass Index follow-up plan has been documented for the patient 05/28/2024 1:52 PM EST documented as of this encounter Care Teams Manager Agency Relationship Specialty Start Date End Date Jevon Vazquez MD [address] [place] [address] #1 [address]1 [place] [address] PCP - General 03/23/22 documented as of this encounter
--- OUTSIDE RECORDS SUMMARY | 2025-02-09 09:12 | XMS_ITS | Encounter Summary ---
Author Organization Healthcare Address [address] [place] [address] Care Team Providers Care Guest Services Lead Name Role Phone Jevon Vazquez MD Primary Care Provider [phone] Encounter Details Date Type Department Care Team [...] Hematology/BMT and Cellular Therapy Program [address] [phone] 03/03/2025 1:30 PM EST Office Visit [facility] Hematology/BMT and Cellular Therapy Program [address] [phone] Zonia Hoffman, RETAIL SPECIAL EVENT ASSOCIATE 800 [facility] [address] [place] [phone] documented as of this encounter Visit Diagnoses Not on filedocumented in this encounter Additional Health Concerns Assessment Noted Time A fall risk assessment has been complete d for the patient 01/27/2025 3:25 PM EDT A Body Mass Index follow-up plan has been documented for the patient 05/28/2024 1:52 PM EST documented as of this encounter Care Teams Guest Services Lead Relationship Specialty Start Date End Date Jevon Vazquez MD [address] [place] [address] #1 [address]1 [place] [address] PCP - General 03/23/22 documented as of this encounter
--- OUTSIDE RECORDS SUMMARY | 2025-02-09 09:12 | XMS_ITS | Clinical Summary ---
Author Organization [facility] Address [address] [place] [address] Phone Care Team Providers Care Blender Operator Name Role Phone Jevon Vazquez MD Primary Care Provider [phone] Allergies Active Allergy Reactions Criticality Noted Date [...] L4-5 LAMINECTOMY; Surgeon: Ivan Bartholomew MD; Location: [facility]; Service: Spine Medical History [...] 5.6 % 11/14/2022 2:57 PM EDT PREFERRED [employer], [employer] Est. Avg Glucose 148 mg/dL 11/14/2022 2:57 PM EDT [employer] [employer] Blood VENOUS BLOOD / Unknown Venipuncture / Unknown 11/11/2022 3:46 PM EDT 11/11/2022 3:55 PM EDT Narrative PREFERRED [employer] [facility] - 11/14/2022 2:57 PM EDT REFERENCE RANGE: Normal: 4.0-5.6% Pre-diabetes: 5.7-6.4% Provisional diagnosis of diabetes: >6.4% Hgb F>10% and anything which shortens red cell survival, such as hemolytic anemia, or unstable hemoglobin variants such as HbSS, HbSC, or HbCC, will lower the HbA1c value associated with a given level of glycemic control. us Lexi Maloney DO CHEMISTRY ORDERABLES Final R esult [employer] [address] [facility] , [address] [place] [id number] * (ABNORMAL) BASIC METABOLIC PANEL (11/11/2022 3:46 PM EDT) Sodium 136 136 - 145 mmol/L 11/11/2022 4:11 PM EDT [facility] Potassium 3.8 3.5 - 5.0 mmol/L 11/11/2022 4:11 PM EDT [facility] Chloride 102 98 - 107 mmol/L 11/11/2022 4:11 PM EDT [facility] Total CO2 24 22 - 29 mmol/L 11/11/2022 4:11 PM EDT [facility] Anion Gap 10 7 - 16 mmol/L 11/11/2022 4:11 PM EDT [facility] Calcium 10.1 8.8 - 10.4 mg/dL 11/11/2022 4:11 PM EDT [facility] Glucose Lvl 147(H) 82 - 100 mg/dL 11/11/2022 4:11 PM EDT [facility] BUN 15 8 - 23 mg/dL 11/11/2022 4:11 PM EDT [facility] Creatinine 0.82 0.51 - 1.30 mg/dL 11/11/2022 4:11 PM EDT [facility] eGFR (CKD-EPIcr 2021) 76 >=60 mL/min/1.7 3 m2 11/11/2022 4:11 PM EDT [facility] Comment:Estimated GFR was ca lculated using the CKD-EPIcr (2020) equation refit without race. The equation is recommended by the National Kidney Foundation - [place] [employer] of Nephrology Task Force. Blood VENOUS BLOOD / Unknown Venipuncture / Unknown 11/11/2022 3:46 PM EDT 11/11/2022 3:54 PM EDT us Leona Hanna DO CHEMISTRY ORDERABLES Final Res ult [facility] [address] [place] [address] * DX BONE DENSITY AXIAL SKELETON (07/25/2022 9:14 AM EDT) Anatomical Region Laterality Modality Dexa Scan 07/25/2022 Narrative 07/25/2022 3:45 PM EDT Indication: The patient is a female age 65 or older who requires a bone density assessment. Study was performed on [employer] 5. Bone Density: Region BMD T-score [...] Payer (Ef fective 2016-Present) Name:Ashly Hernández Member ID:[id number] Relation to Subscriber:Self Name:Ashly Hernández Subscriber ID:[id number] Payer ID:Not on file Group ID:Not on file Type:Not on file Address: [address] MEDICARE SUPPLEMENT MEDICARE [place] PART A & B [place]ICARE [place] PART A AND B Member Subscriber Plan / Payer (Ef fective 2016-Present) Name:Ashly Hernández Member ID:[id number] Relation to Subscriber:Self Name:Ashly Hernández Subscriber ID:[id number] Payer ID:Not on file Group ID:Not on file Type:Not on file Address: [address] MEDICARE SUPPLEMENT [employer] MEDICARE [place] PART A AND B [address] MEDICARE SUPPLEMENT Advance Directives For more information, please contact: [phone] * Full Code (Latest Code Status on File) Date Activated Date Inactivated Comments 11/14/2022 6:53 PM 11/16/2022 7:37 PM * Full Code Date Activated Date Inactivated Comments 11/12/2022 5:17 AM 11/14/2022 6:47 PM Care Teams Blender Operator Relationship Specialty Start Date End Date Jevon Vazquez MD [address] [place] [address] PCP - General Family Medicine 11/10/22
--- OUTSIDE RECORDS SUMMARY | 2025-02-09 09:12 | XMS_ITS | Encounter Summary ---
Author Organization [facility] Address [address] [place] [address] Care Team Providers Care Keno Terminal Operator Name Role Phone Jevon Vazquez MD Primary Care Provider [phone] Encounter Details Date Type Department Care Team ([facility] Contact Info) Description 01/27/2025 Telephone [facility] Hematology/BMT and Cellular Therapy Program [address] [place] [address] Alyson Vivas RN Social History Tobacco Use Types Packs/Day [...] Dr. Mckinney Notified Primary Onc RN: Jorge Gordno RN Lab Value Action Taken ANC 0.11 documented in this encounter Plan of Treatment Upcoming Encounters Date Type Department Care Team ([facility] Contact Info) Description 03/03/2025 1:00 PM EST Clinical Support [facility] Hematology/BMT and Cellular Therapy Program [address] [place] [address] 03/03/2025 1:30 PM EST Office Visit [facility] CC Hematology/BMT and Cellular Therapy Program [address] [place] [phone] Zonia Hoffman, CINDER BLOCK MASON 800 [facility] [address] [place] [address] documented as of this encounter Visit Diagnoses Not on filedocumented in this encounter Additional Health Concerns Assessment Noted Time A fall risk assessment has been complete d for the patient 01/27/2025 3:25 PM EDT A Body Mass Index follow-up plan has been documented for the patient 05/28/2024 1:52 PM EST documented as of this encounter Care Teams Keno Terminal Operator Relationship Specialty Start Date End Date Jevon Vazquez MD [address] [place] [address] [address]1 [address] [place] [address] PCP - General 03/23/22 documented as of this encounter
--- OUTSIDE RECORDS SUMMARY | 2025-02-09 09:12 | XMS_ITS | Encounter Summary ---
Author Organization Healthcare Address [address] [place] [address] Care Team Providers Care Fiscal Services Manager Name Role Phone Jevon Vazquez MD Primary Care Provider [phone] Encounter Details Date Type Department Care Team [...] Hematology/BMT and Cellular Therapy Program [address] [phone] 03/03/2025 1:30 PM EST Office Visit [facility] CC Hematology/BMT and Cellular Therapy Program [address] [address] Zonia Hoffman, LOCAL DELIVERY TRUCK DRIVER 800 [facility] [address] [place] [phone] documented as of this encounter Visit Diagnoses Not on filedocumented in this encounter Additional Health Concerns Assessment Noted Time A fall risk assessment has been complete d for the patient 09/30/2024 9:33 AM EDT A Body Mass Index follow-up plan has been documented for the patient 05/28/2024 1:52 PM EST documented as of this encounter Care Teams Fiscal Services Manager Relationship Specialty Start Date End Date Jevon Vazquez MD [address] [place] [address] #1 [address]1 [place] [address] PCP - General 03/23/22 documented as of this encounter
--- OUTSIDE RECORDS SUMMARY | 2025-02-09 09:12 | XMS_ITS | Clinical Summary ---
Author Organization [facility] Address [address] 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 Encounters Date Type Department Care Team Description 02/02/2025 Refill [facility] Hematology/BMT and Cellular Therapy Program [address] [place] [address] [place] [phone] Zonia Hoffman APRN 01/28/2025 Telephone [facility] H[facility]ology/BMT and Cellular Therapy Program [address] [place] [address] [place] [phone] New Mckinney MD 01/27/2025 3:30 PM EDT Office Visit [facility] Hematology/BMT and Cellular Therapy Program [address] [place] [address] [place] [phone] New Mckinney MD Encounter for antineoplastic immunotherapy (Primary Dx); 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); Immunosuppressed status (CMS/HCC) 01/27/2025 3:00 PM EDT Clinical Support [facility] Hematology/BMT and Cellular Therapy Program [address] [place] [address] [place] [address] Oscar Cortez, RN 01/27/2025 Telephone [facility] [address] [place] [address] Emil Hardy, PharmD 01/27/2025 Telephone [facility] Hematology/BMT and Cellular Therapy Program [address] [phone] Alyson Vivas RN 01/27/2025 Travel 01/20/2025 Travel 01/16/2025 Telephone [facility] Hematology/BMT and Cellular Therapy Program [address] [phone] Daxa Elliott RN 01/12/2025 10:00 AM EDT Procedure Visit [facility] Hematology/BMT and Cellular Therapy Program [address] [place] [phone] Rebecca Barrientos PA Myelodysplastic syndrome (CMS/HCC); 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) 01/12/2025 9:30 AM EDT Clinical Support [facility] Hematology/BMT and Cellular Therapy Program [address] [place] [phone] 01/12/2025 Travel 01/07/2025 Travel 01/07/2025 Telephone [facility] Hematology/BMT and Cellular Therapy Program [address] [phone] Sabine Clemons MD 01/07/2025 Refill [facility]ology/BMT and Cellular Therapy Program [address] [phone] Zonia Hoffman, RESEARCH ASSOCIATE 01/05/2025 Travel 01/05/2025 Refill [facility] H[facility]ology/BMT and Cellular Therapy Program [address] [phone] Zonia Hoffman, RESEARCH ASSOCIATE 12/29/2024 Orders Only [facility] Hematology/BMT and Cellular Therapy Program [address] [place] [phone] New Mckinney MD Myelodysplastic syndrome (CMS/HCC) (Primary Dx) 12/29/2024 Telephone [facility] Hematology/BMT and Cellular Therapy Program 750 [facility], [address] [place] [phone] Bibiana Sepulveda, RESEARCH ASSOCIATE 12/28/2024 Travel 12/26/2024 Travel 12/25/2024 Travel 12/24/2024 Travel 12/23/2024 Travel 12/11/2024 Telephone [facility] Hematology/BMT and Cellular Therapy Program [address] [phone] New Mckinney MD 12/10/2024 Travel 12/09/2024 Refill [facility] Hematology/BMT and Cellular Therapy Program [address] [phone] Zonia Hoffman, RESEARCH ASSOCIATE 11/27/2024 Telephone [facility] Hematology/BMT and Cellular Therapy Program [address] [phone] Zonia Hoffman, RESEARCH ASSOCIATE 11/26/2024 Travel 11/25/2024 Travel 11/24/2024 Travel 11/23/2024 Travel 11/22/2024 Travel 11/13/2024 Orders Only [facility] Hematology/BMT and Cellular Therapy Program [address] [phone] 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, mathematical technician 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) 11/12/2024 Travel 11/12/2024 Telephone [facility] Hematology/BMT and Cellular Therapy Program [address] [phone] Zonia Hoffman, RESEARCH ASSOCIATE 11/11/2024 Travel 11/10/2024 Travel 11/09/2024 Travel from Last 3 Months Immunizations Immunization [...] Care Team ([facility] Contact Info) Description 03/03/2025 1:00 PM EST Clinical Support [facility] Hematology/BMT and Cellular Therapy Program [address] [phone] 03/03/2025 1:30 PM EST Office Visit [facility] Hematology/BMT and Cellular Therapy Program [address] [phone] Zonia Hoffman, RESEARCH ASSOCIATE 800 [facility] [address] [place] [phone] Health Maintenance Due Date Last Done Comments [facility]Medic[facility] Annual Wellness (AWV) 1950 [facility]-/Child/Adol SDOH Screenings 1950 [facility]- SDOH Screenings 1968 [facility]-Adult SDOH Screenings 1968 CT Colonography 11/04/1995 Colonoscopy 11/04/1995 FIT-DNA 11/04/1995 FIT 11/04/1995 FOBT 11/04/1995 Sigmoidoscopy 11/04/1995 [facility]-Colorectal Cancer Screening 11/04/1995 [facility]-Breast Cancer Screening 2000 [facility]-RSV Vaccine: 60+ Years or (1 - Risk 60-74 years 1-dose series) 2010 [facility]-Zoster Vaccines (1 of 2) 05/16/2023 03/21/2023 [facility]-Bone Density Scan 07/25/2024 07/25/2022 QEB-SEVPR-14 Vaccine (4 - 2024- season) 2024 02/18/2021, [...] this topic Medical Devices Implanted Type Area Hospitalist Medical Director Device Identifier Shelf Expiration Date Model / Serial / Lot Port Clearvue Power 8fr - [id number] Implanted:Qty: 1 on 01/21/2024 by Ness Sargent MD at [facility] Peripherial Vascular-[id number] / / Procedures Procedure Name Priority Date/Time [...] LAB HEMATOLOGY METHOD 01/27/2025 3:21 PM EDT [facility] RBC Count 2.90(L) 3.90 - 5.20 10*6/uL LAB HEMATOLOGY METHOD 01/27/2025 3:21 PM EDT [facility] HGB 8.9(L) 11.2 - 15.7 g/dL LAB HEMATOLOGY METHOD 01/27/2025 3:21 PM EDT [facility] HCT 26.3(L) 34.0 - 45.0 % LAB HEMATOLOGY METHOD 01/27/2025 3:21 PM EDT [facility] Platelet Count 23(L) 155 - 369 10*3/uL LAB HEMATOLOGY METHOD 01/27/2025 3:21 PM EDT [facility] MCV 91 79 - 98 fL LAB HEMATOLOGY METHOD 01/27/2025 3:21 PM EDT [facility] MCH 30.7 26.0 - 32.0 pg LAB HEMATOLOGY METHOD 01/27/2025 3:21 PM EDT [facility] MCHC 33.8 30.7 - 35.5 g/dL LAB HEMATOLOGY METHOD 01/27/2025 3:21 PM EDT [facility] RDW 17.7(H) 11.5 - 14.5 % LAB HEMATOLOGY METHOD 01/27/2025 3:21 PM EDT [facility] MPV 9.0 8.8 - 12.5 fL LAB HEMATOLOGY METHOD 01/27/2025 3:21 PM EDT [facility] nRBC 2.5(H) <=0.0 per 100 WBCs LAB HEMATOLOGY METHOD 01/27/2025 3:21 PM EDT [facility] Differential Type Automated LAB HEMATOLOGY METHOD 01/27/2025 3:21 PM EDT [facility] Neutrophils % 9 % LAB HEMATOLOGY METHOD 01/27/2025 3:21 PM EDT [facility] Lymphocytes % 78 % LAB HEMATOLOGY METHOD 01/27/2025 3:21 PM EDT [facility] Monocytes % 12 % LAB HEMATOLOGY METHOD 01/27/2025 3:21 PM EDT [facility] Eosinophils % 1 % LAB HEMATOLOGY METHOD 01/27/2025 3:21 PM EDT [facility] Basophils % 0 % LAB HEMATOLOGY METHOD 01/27/2025 3:21 PM EDT [facility] Immature Granulocytes % 0 % LAB HEMATOLOGY METHOD 01/27/2025 3:21 PM EDT [facility] Neutrophils Absolute 0.11(LL) 1.60 - 6.10 10*3/uL LAB HEMATOLOGY METHOD 01/27/2025 3:21 PM EDT [facility] Lymphocytes Absolute 0.95(L) 1.20 - 3.90 10*3/uL LAB HEMATOLOGY METHOD 01/27/2025 3:21 PM EDT [facility] Monocytes Absolute 0.15(L) 0.30 - 0.90 10*3/uL LAB HEMATOLOGY METHOD 01/27/2025 3:21 PM EDT [facility] Eosinophils Absolute 0.01 0.00 - 0.50 10*3/uL LAB HEMATOLOGY METHOD 01/27/2025 3:21 PM EDT [facility] Basophils Absolute 0.00 0.00 - 0.10 10*3/uL LAB HEMATOLOGY METHOD 01/27/2025 3:21 PM EDT [facility] Immature Granulocytes Absolute 0.00 0.00 - 0.06 10*3/uL LAB HEMATOLOGY METHOD 01/27/2025 3:21 PM EDT [facility] Blood Blood sample taken from central line / Unknown (Port) Long-term Catheter / Unknown 01/27/2025 3:00 PM EDT 01/27/2025 3:12 PM EDT [facility] - 01/27/2025 3:21 PM EDT Therapeutic decision making should be based on absolute values, rather than percentages. New Mckinney MD LAB BLOOD ORDERABLES Final Re sult [facility] [address] [place] [address] * (ABNORMAL) Comprehensive Metabolic Panel, Plasma (01/27/2025 3:00 PM EDT) Only the most recent of2 resultswithin the time period is included. Glucose, Plasma 89 74 - 99 mg/dL 01/27/2025 4:26 PM EDT [facility] BUN, Plasma 22 8 - 23 mg/dL 01/27/2025 4:26 PM EDT [facility] Creatinine, Plasma 1.10 0.60 - 1.10 mg/dL 01/27/2025 4:26 PM EDT [facility] BUN/Creatinine Ratio 20 01/27/2025 4:26 PM EDT [facility] Sodium, Plasma 138 136 - 145 mmol/L 01/27/2025 4:26 PM EDT [facility] Potassium, Plasma 4.6 3.6 - 4.9 mmol/L 01/27/2025 4:26 PM EDT [facility] Chloride, Plasma 106 97 - 107 mmol/L 01/27/2025 4:26 PM EDT [facility] CO2, Plasma 22 22 - 29 mmol/L 01/27/2025 4:26 PM EDT [facility] Anion Gap 10 6 - 16 mmol/L 01/27/2025 4:26 PM EDT [facility] Total Calcium, Plasma 9.6 8.9 - 10.2 mg/dL 01/27/2025 4:26 PM EDT [facility] Total Protein 6.2(L) 6.3 - 7.9 g/dL 01/27/2025 4:26 PM EDT [facility] Albumin, Plasma 3.9 3.5 - 5.2 g/dL 01/27/2025 4:26 PM EDT [facility] AST, Plasma 33 10 - 35 U/L 01/27/2025 4:26 PM EDT [facility] ALT, Plasma 11 10 - 35 U/L 01/27/2025 4:26 PM EDT [facility] Alkaline Phosphatase, Plasma 43(L) 46 - 142 U/L 01/27/2025 4:26 PM EDT [facility] Total Bilirubin, Plasma 0.5 0.2 - 1.1 mg/dL 01/27/2025 4:26 PM EDT [facility] eGFRcr 52.8 mL/min/1.7 3m*2 01/27/2025 4:26 PM EDT [facility] Comment:Reported eGFRcr in m L/min/1.73m2 is based the CKD-EPI 2020 equation that does not use a race coefficient. Blood Blood sample taken from central line / Unknown (Port) Long-term Catheter / Unknown 01/27/2025 3:00 PM EDT 01/27/2025 3:54 PM EDT us New Mckinney MD LAB BLOOD ORDERABLES Final Re sult [facility] [address] [place] [address] * BIOPSY BONE MARROW (01/12/2025 10:00 AM [...] with this patient's previous abnormal results (see [facility]-[id number]). Clinical correlation is recommended. Note: Per [employer] (CAP) requirement an additional karyotype was [...] Result [facility] [address] [place] [address] * Leukemia/Lymphoma - Immunophenotyping by Flow Cytometry [...] the Immuno-Molecular Pathology Laboratory at the [facility]. It has not been cleared or [...] clinical laboratory testing. 01/12/2025 4:19 PM EDT [facility] Pathologist Signature Reviewed by: Asad Hartman MD 01/12/2025 4:19 PM EDT [facility] MRD Indicated Test Not Indicated 4:19 PM EDT [facility] Bone Marrow Specimen from bone marrow obtained by aspiration / Unknown Non-blood Collection / Unknown 01/12/2025 9:55 AM EDT 01/12/2025 1:48 PM EDT New Mckinney MD LAB FLOW CYTOMETRY ORDERABLES Final Result [facility] [address] [place] [address] * Bone marrow exam (01/12/2025 9:55 AM EDT) Case Report Bone Marrow Case: [id number] Authorizing Provider: New Mckinney MD Collected: 01/12/2025 0955 Ordering Location: [facility] Hematology/BMT and Received: 01/12/2025 1143 Cellular Therapy Program Pathologist: Asad Hartman MD Specimens: A) - Bone Marrow Aspirate, left B) - Bone Marrow Biopsy, left C) - Peripheral Blood for Bone Marrow 5:16 PM EDT [facility] Cytogenetics Report, Addendum Chromosome Analysis Result: Giemsa-banded metaphase cells from unstimulated bone marrow cultures showed the following chromosome pattern: 43~44,X,-X,add(5)( q23),del(5)(q13q33 ),todd(7)ins?(7)(q1 1.2q11.2)t(7;12)(q 11.2;q13),-12,todd( 17)add(17)(p13.2)a dd(17)(q21)[16]/88 ,XX,idemx2[cp3]/46 ,XY[1] Interpretation: Abnormal female chromosome analysis. 95% of metaphase cells analyzed showed clonal abnormalities consistent with this patient's previous abnormal results (see [facility]-[id number]). 5:16 PM EDT [facility] [...] cells. Platelets are decreased. 5:16 PM EDT [facility] Bone Marrow Differential BONE MARROW DIFFERENTIAL: 300 cells Normal Patient Neutrophils 15-50 12 Metamyelocytes 4-19 0 Myelocytes 1-18 1 Promyelocytes 1-8 0 Blasts 0-2 7 Monocytes 0-5 7 Erythroid 16-38 61 Lymphocytes 3-24 7 Eosinophils 0-6 3 Basophils 0-2 0 Plasma cells 0-4 2 Other 5 5:16 PM EDT [facility] Aspirate Smear The [...] 50% of erythroid precursors. 5:16 PM EDT [facility] Core Biopsy CELLULARITY: [...] Bony trabeculae are normal. 5:16 PM EDT [facility] Special and Immunohistochemical [...] [facility], [address] [place] [address]. All tests reported here, except those addressing [...] partial dim CD7, CD38 and dim CD45 ([id number]). 5:16 PM T [facility] [...] ed Result - Final Performing Organization Address City/[facility]/ZIP Co de Phone Number [facility] [address] [place] [address] * Hepatitis C Antibody w/Reflex to HCV Quant PCR (01/07/2024 8:42 AM EDT) Hepatitis C Antibody Negative Negative 01/07/2024 10:13 AM EDT [facility] Blood Venous blood specimen / Unknown Venipuncture / Unknown 01/07/2024 8:42 AM EDT 01/07/2024 9:25 AM EDT New Mckinney MD LAB BLOOD ORDERABLES Final Re sult Performing Organization Address [facility]/ZIP Co de Phone Number [facility] [address] [place] [address] from Last 3 Months or Most Recently Relevant to Health Maintenance Insurance * Guarantor: Ashly Hernández Account Type Relation to Patient Date of Phone Billing Address Personal/Family Self [address] [place] [address] [place] [address] [facility] Care Teams Forest Economics Professor Relationship Specialty Start Date End Date Jevon Vazquez MD [address] [place] [address] [address]1 [address] [place] [phone] PCP - General 03/23/22
[2025-02-09 09:27] LABS: Hematocrit 26.1 % (37.0-47.0); Hemoglobin 8.7 g/dL (12.2-16.2); Immature Granulocytes % 0 %; Mean Corpuscular HGB Conc 33.3 g/dL (31.8-35.4); Mean Corpuscular Hemoglobin 29.3 pg (27.0-31.2); Mean Corpuscular Volume 87.9 fl (81-99); Nucleated Red Blood Cells % 0 %; Red Blood Count 2.97 M/mm3 (4.20-5.40); Red Cell Distribution Width-SD 55.2 fL
[2025-02-09 09:30] LABS: Albumin Level 2.7 g/dl (3.5-5.0); Chloride 105 mmol/L (98-107)
[2025-02-09 09:31] LABS: Potassium 3.6 mmoL/L (3.5-5.1); Sodium 134 mmol/L (136-145)
[2025-02-09 09:33] LABS: Alanine Aminotransferase 16 U/L (12-78); Aspartate Amino Transferase 39 U/L (14-36); Blood Urea Nitrogen 17 mg/dl (7-17); Creatinine,Serum 0.90 mg/dl (0.52-1.04); Estimated Glomerular Filt Rate 61 ml/min (>60); GFR (African American) 74 ML/MIN (>60)
[2025-02-09 09:34] LABS: Albumin/Globulin Ratio 0.8 (1.1-1.8); Alkaline Phosphatase 49 U/L (38-126); Anion Gap 6.6 mEq/L (5-15); Bilirubin,Total 0.9 mg/dl (0.2-1.3); Calcium 9.0 mg/dl (8.4-10.2); Carbon Dioxide 26 mmol/L (22.0-30.0); Globulin 3.4 g/dL (1.3-3.2); Glucose 147 mg/dl (74-100); Total Protein,Serum 6.1 g/dl (6.3-8.2); White Blood Count 0.5 K/mm3 (4.8-10.8)
[2025-02-09 09:35] LABS: Platelet Count 25 K/mm3 (142-424)
[2025-02-09] MEDS: SODIUM CHLORIDE 0.9% 10ML FLUSH SYRINGE 10 ML IV (09:50)
[2025-02-09 10:16] LABS: Total Cells Counted 25
[2025-02-09 10:17] LABS: Hypochromasia 2+
== END 2025-02-09 23:59 | disposition home or self-care (01) ==
LOC: INF 09:04
PROVIDERS: PCP Family Medicine; Visit Provider Internal Medicine Medical Oncology
DX: C92.00 Acute myeloblastic leukemia, not having achieved remission (principal)
CPT/HCPCS: 36591; 80053; 85007; 85025; J1642

== ENCOUNTER 2025-02-11 09:00 | Outpatient (CLI) | payer MEDICARE, BC, SELFPAY ==
--- OUTSIDE RECORDS SUMMARY | 2025-01-12 09:30 | XMS_ITS | Encounter Summary ---
Author Organization Healthcare Address [address] [place] [address] Care Team Providers Care Medical Sonographer Name Role Phone Jevon Vazquez MD Primary Care Provider [phone] Reason for Visit * Reason Comments Labs Encounter Details Date Type Department Care Team ([facility] Contact Info) Description 01/12/2025 9:30 AM EDT Clinical Support [facility] Hematology/BMT and Cellular Therapy Program [address] [phone] Social History Tobacco Use Types Packs/Day Years [...] ([facility] Contact Info) Description 03/03/2025 1:00 PM EST Clinical Support [facility] Hematology/BMT and Cellular Therapy Program [address] [phone] 03/03/2025 1:30 PM EST Office Visit [facility] Hematology/BMT and Cellular Therapy Program [address] [phone] Zonia Hoffman, PREMISES TECHNICIAN 800 [facility] [address] [place] [phone] documented as of this encounter Visit Diagnoses Not on filedocumented in this encounter Additional Health Concerns Assessment Noted Time A fall risk assessment has been complete d for the patient 09/30/2024 9:33 AM EDT A Body Mass Index follow-up plan has been documented for the patient 05/28/2024 1:52 PM EST documented as of this encounter Care Teams Medical Sonographer Relationship Specialty Start Date End Date Jevon Vazquez MD [address] [place] [address] #1 #1 [place] [phone] PCP - General 03/23/22 documented as of this encounter
--- OUTSIDE RECORDS SUMMARY | 2025-01-12 10:00 | XMS_ITS | Encounter Summary ---
Author Organization [facility] Address [address] [place] [address] Care Team Providers Care Manager Of Allied Health Services Name Role Phone Jevon Vazquez MD Primary Care Provider [phone] Reason for Visit * Genetic Testing (Routine) - Authorized Specialty Diagnoses / Procedures Referred By Rebecca barron Referred To Contact Lab Diagnoses Myelodysplastic syndrome (CMS/HCC) Procedures Leukemia/Lymphoma - Immunophenotyping by Flow Cytometry New Mckinney MD [address] [facility] [address] [address] Phone: tel: fax: Referral ID Status Reason Start Date Expiration Date V isits Requested Visits Authorized [id number] Authorized 12/29/2024 06/30/2026 1 1 Encounter Details Date Type Department Care Team (Latest Contact Info) Description 01/12/2025 10:00 AM EDT Procedure Visit [facility] Hematology/BMT and Cellular Therapy Program [address] [phone] Rebecca Barrientos PA [address] [facility] [address] [address] Myelodysplastic syndrome (CMS/HCC); Acute myeloid [...] CC HEMATOLOGY/BMT AND CELLULAR THERAPY PROGRAM [address] [facility] [phone] / documented in this encounter Plan of Treatment Upcoming Encounters Date Type Department Care Team ([facility] st Contact Info) Description 03/03/2025 1:00 PM EST Clinical Support [facility] Hematology/BMT and Cellular Therapy Program [address] [phone] 03/03/2025 1:30 PM EST Office Visit [facility] Hematology/BMT and Cellular Therapy Program [address] [phone] Zonia Hoffman, RODDY 800 [facility] [address] [place] [phone] documented as of this encounter Procedures Procedure [...] Type Bone Marrow 01/20/2025 12:21 PM EDT [facility] Clinical Indication Myelodysplastic Syndrome 01/20/2025 12:21 PM EDT [facility] Specimen Adequacy Adequate 025 12:21 PM EDT [facility] Chromosome Analysis Result Giemsa-banded metaphase cells from unstimulated bone marrow cultures showed the following chromosome pattern: 43~44,X,-X,add(5)( q23),del(5)(q13q33 ),todd(7)ins?(7)(q1 1.2q11.2)t(7;12)(q 11.2;q13),-12,todd( 17)add(17)(p13.2)a dd(17)(q21)[16]/88 ,XX,idemx2[cp3]/46 ,XY[1] 01/20/2025 12:21 PM EDT [facility] Interpretation Abnormal female chromosome analysis. 95% of metaphase cells analyzed showed clonal abnormalities consistent with this patient's previous abnormal results (see [id number]). Clinical correlation is recommended. Note: Per [employer] ([employer]) requirement an additional karyotype was performed and charged due to the presence of clonal abnormalities. # cells counted = 20 # cells analyzed = 20 # cells karyotyped = 3 Band resolution: 400-450 01/20/2025 12:21 PM EDT [facility] Pathologist Signature Reviewed by: Corey Tejada 01/20/2025 12:21 PM EDT [facility] Bone Marrow Non-blood Collection / Unknown 01/12/2025 9:55 AM EDT 01/12/2025 12:37 PM EDT us New Mckinney MD LAB CYTOGENETICS ORDERABLES F inal Result [facility] [address] [place] [address] * Leukemia/Lymphoma - Immunophenotyping by Flow Cytometry (01/12/2025 9:55 AM EDT) Clinical Indication MDS 01/12/2025 4:19 PM EDT [facility] Flow Cytometry Interpretation APPROXIMATELY 27% MYELOID BLASTS EXPRESSING CD34, CD117, VARIABLE CD33, PARTIAL CD56, VARIABLE HLA-DR, PARTIAL DIM CD7, CD38 AND DIM CD45, SEE COMMENT, BBONE MARROW ASPIRATE. 01/12/2025 4:19 PM EDT [facility] Comments Specimen viability is 89%. [...] surface light chains 01/12/2025 4:19 PM EDT [facility] Disclaimer This test was developed [...] clinical laboratory testing. 01/12/2025 4:19 PM EDT [facility] Pathologist Signature Reviewed by: Asad Hartman MD 01/12/2025 4:19 PM EDT [facility] MRD Indicated Test Not Indicated 4:19 PM EDT [facility] Bone Marrow Specimen from bone marrow obtained by aspiration / Unknown Non-blood Collection / Unknown 01/12/2025 9:55 AM EDT 01/12/2025 1:48 PM EDT us New Mckinney MD LAB FLOW CYTOMETRY ORDERABLES Final Result [facility] [address] [place] [address] * Bone marrow exam (01/12/2025 9:55 AM EDT) Case Report Bone Marrow Case: [id number] Authorizing Provider: New Mckinney MD Collected: 01/12/2025 0955 Ordering Location: [facility] Hematology/BMT and Received: 01/12/2025 1143 Cellular Therapy Program Pathologist: Asad Hartman MD Specimens: A) - Bone Marrow Aspirate, left B) - Bone Marrow Biopsy, left C) - Peripheral Blood for Bone Marrow 5:16 PM EDT [facility] Cytogenetics Report, Addendum Chromosome Analysis Result: Giemsa-banded metaphase cells from unstimulated bone marrow cultures showed the following chromosome pattern: 43~44,X,-X,add(5)( q23),del(5)(q13q33 ),todd(7)ins?(7)(q1 1.2q11.2)t(7;12)(q 11.2;q13),-12,todd( 17)add(17)(p13.2)a dd(17)(q21)[16]/88 ,XX,idemx2[cp3]/46 ,XY[1] Interpretation: Abnormal female chromosome analysis. 95% of metaphase cells analyzed showed clonal abnormalities consistent with this patient's previous abnormal results (see [facility]-[id number]). 5:16 PM EDT [facility] Addendum electronically signed by Asad Hartman MD on 01/23/2025 at 1716 EDT Final Diagnosis PERIPHERAL BLOOD AND BONE MARROW, LEFT POSTERIOR ILIAC CREST, (PERIPHERAL SMEAR, ASPIRATE SMEAR, AND CORE BIOPSY): - HYPOCELLULAR BONE MARROW WITH MARKEDLY DECREASED MEGAKARYOCYTES, DECREASED MATURING GRANULOPOIESIS, APPROXIMATELY 7-10% VARIABLY DISTRIBUTED BLASTS AND MORE THAN 50% RING SIDEROBLASTS, SEE COMMENT. 5:16 PM EDT [facility] at 0941 EDT Comment The discrepancy between blasts percentage by morphologic assessment and flow cytometric analysis is due to erythroid precursors that constitute majority of bone marrow cellularity and are removed by flow cytometry. 5:16 PM EDT [facility] Clinical Information MDS 01/14 5:16 PM EDT [facility] [...] cells. Platelets are decreased. 5:16 PM EDT [facility] Bone Marrow Differential BONE MARROW DIFFERENTIAL: 300 cells Normal Patient Neutrophils 15-50 12 Metamyelocytes 4-19 0 Myelocytes 1-18 1 Promyelocytes 1-8 0 Blasts 0-2 7 Monocytes 0-5 7 Erythroid 16-38 61 Lymphocytes 3-24 7 Eosinophils 0-6 3 Basophils 0-2 0 Plasma cells 0-4 2 Other 5:16 PM T [facility] Aspirate Smear The bone marrow [...] 50% of erythroid precursors. 5:16 PM T [facility] Core Biopsy CELLULARITY: Variably cellular [...] Bony trabeculae are normal. 5:16 PM T [facility] Special and Immunohistochemical Stains Immunohistochemica [...] at the [facility], [address] [place] [address]. All tests reported here, except those addressing [...] negativity on decalcified specimens. 5:16 PM T [facility] Flow Cytometry Interpretation Flow cytometric analysis demonstrates approximately 27% population of myeloid blasts in this patient with history of myelodysplastic syndrome; expressing CD34, CD117, variable CD33, partial CD56, variable HLA-DR, partial dim CD7, CD38 and dim CD45 ([id number]). 5:16 PM T [facility] Gross Description B. LEFT A single specimen is received in formalin labeled bone marrow biopsy left posterior iliac crest and consists of 1 piece(s) of red/white tissue measuring 0.9 cm in length 0.2 cm in diameter. The specimen is submitted in to Histology for decalcification and routine processing. Cold Time: <1m 5:16 PM [facility] Note: A resident was involved in the service. I attest I examined the relevant preparations for the specimens and confirmed the diagnosis or interpretation. 5:16 PM T [facility] Bone [...] [facility] [address] [place] [address] * (ABNORMAL) CBC and Differential (01/12/2025 9:15 AM EDT) WBC Count 1.31(L) 3.70 - 10.30 10*3/uL LAB HEMATOLOGY METHOD 01/12/2025 9:58 AM EDT [facility] RBC Count 2.70(L) 3.90 - 5.20 10*6/uL LAB HEMATOLOGY METHOD 01/12/2025 9:58 AM EDT [facility] HGB 8.4(L) 11.2 - 15.7 g/dL LAB HEMATOLOGY METHOD 01/12/2025 9:58 AM EDT [facility] HCT 25.0(L) 34.0 - 45.0 % LAB HEMATOLOGY METHOD 01/12/2025 9:58 AM EDT [facility] Platelet Count 31(L) 155 - 369 10*3/uL LAB HEMATOLOGY METHOD 01/12/2025 9:58 AM EDT [facility] MCV 93 79 - 98 fL LAB HEMATOLOGY METHOD 01/12/2025 9:58 AM EDT [facility] MCH 31.1 26.0 - 32.0 pg LAB HEMATOLOGY METHOD 01/12/2025 9:58 AM EDT [facility] MCHC 33.6 30.7 - 35.5 g/dL LAB HEMATOLOGY METHOD 01/12/2025 9:58 AM EDT [facility] RDW 20.0(H) 11.5 - 14.5 % LAB HEMATOLOGY METHOD 01/12/2025 9:58 AM EDT [facility] MPV 8.8 8.8 - 12.5 fL LAB HEMATOLOGY METHOD 01/12/2025 9:58 AM EDT [facility] nRBC 3.1(H) <=0.0 per 100 WBCs LAB HEMATOLOGY METHOD 01/12/2025 9:58 AM EDT [facility] Differential Type Automated LAB HEMATOLOGY METHOD 01/12/2025 9:58 AM EDT [facility] Neutrophils % 19 % LAB HEMATOLOGY METHOD 01/12/2025 9:58 AM EDT [facility] Lymphocytes % 64 % LAB HEMATOLOGY METHOD 01/12/2025 9:58 AM EDT [facility] Monocytes % 15 % LAB HEMATOLOGY METHOD 01/12/2025 9:58 AM EDT [facility] Eosinophils % 2 % LAB HEMATOLOGY METHOD 01/12/2025 9:58 AM EDT [facility] Basophils % 0 % LAB HEMATOLOGY METHOD 01/12/2025 9:58 AM EDT [facility] Immature Granulocytes % 0 % LAB HEMATOLOGY METHOD 01/12/2025 9:58 AM EDT [facility] Neutrophils Absolute 0.25(LL) 1.60 - 6.10 10*3/uL LAB HEMATOLOGY METHOD 01/12/2025 9:58 AM EDT [facility] Lymphocytes Absolute 0.84(L) 1.20 - 3.90 10*3/uL LAB HEMATOLOGY METHOD 01/12/2025 9:58 AM EDT [facility] Monocytes Absolute 0.20(L) 0.30 - 0.90 10*3/uL LAB HEMATOLOGY METHOD 01/12/2025 9:58 AM EDT [facility] Eosinophils Absolute 0.02 0.00 - 0.50 10*3/uL LAB HEMATOLOGY METHOD 01/12/2025 9:58 AM EDT [facility] Basophils Absolute 0.00 0.00 - 0.10 10*3/uL LAB HEMATOLOGY METHOD 01/12/2025 9:58 AM EDT [facility] Immature Granulocytes Absolute 0.00 0.00 - 0.06 10*3/uL LAB HEMATOLOGY METHOD 01/12/2025 9:58 AM EDT [facility] Blood Blood sample taken from central line / Unknown (Port) Long-term Catheter / Unknown 01/12/2025 9:15 AM EDT 01/12/2025 9:31 AM EDT [facility] - 01/12/2025 9:58 AM EDT Therapeutic decision making should be based on absolute values, rather than percentages. us New Mckinney MD LAB BLOOD ORDERABLES Final Re sult [facility] [address] [place] [address] * (ABNORMAL) Comprehensive Metabolic Panel, Plasma (01/12/2025 9:15 AM EDT) Glucose, Plasma 121(H) 74 - 99 mg/dL 01/12/2025 10:02 AM EDT [facility] BUN, Plasma 24(H) 8 - 23 mg/dL 01/12/2025 10:02 AM EDT [facility] Creatinine, Plasma 1.19(H) 0.60 - 1.10 mg/dL 01/12/2025 10:02 AM EDT [facility] BUN/Creatinine Ratio 20 01/12/2025 10:02 AM EDT [facility] Sodium, Plasma 138 136 - 145 mmol/L 01/12/2025 10:02 AM EDT [facility] Potassium, Plasma 3.9 3.6 - 4.9 mmol/L 01/12/2025 10:02 AM EDT [facility] Chloride, Plasma 105 97 - 107 mmol/L 01/12/2025 10:02 AM EDT [facility] CO2, Plasma 21(L) 22 - 29 mmol/L 01/12/2025 10:02 AM EDT [facility] Anion Gap 12 6 - 16 mmol/L 01/12/2025 10:02 AM EDT [facility] Total Calcium, Plasma 9.7 8.9 - 10.2 mg/dL 01/12/2025 10:02 AM EDT [facility] Total Protein 6.1(L) 6.3 - 7.9 g/dL 01/12/2025 10:02 AM EDT [facility] Albumin, Plasma 3.9 3.5 - 5.2 g/dL 01/12/2025 10:02 AM EDT [facility] AST, Plasma 28 10 - 35 U/L 01/12/2025 10:02 AM EDT [facility] ALT, Plasma 12 10 - 35 U/L 01/12/2025 10:02 AM EDT [facility] Alkaline Phosphatase, Plasma 43(L) 46 - 142 U/L 01/12/2025 10:02 AM EDT [facility] Total Bilirubin, Plasma 0.5 0.2 - 1.1 mg/dL 01/12/2025 10:02 AM EDT [facility] eGFRcr 48.1 mL/min/1.7 3m*2 01/12/2025 10:02 AM EDT [facility] Comment:Reported eGFRcr in m L/min/1.73m2 is based the CKD-EPI 2020 equation that does not use a race coefficient. Blood Blood sample taken from central line / Unknown (Port) Long-term Catheter / Unknown 01/12/2025 9:15 AM EDT 01/12/2025 9:33 AM EDT us New Mckinney MD LAB BLOOD ORDERABLES Final Re sult [facility] [address] [place] [address] documented in this encounter Visit Diagnoses Diagnosis [...] of this encounter Care Teams Manager Of Allied Health Services Relationship Specialty Start Date End Date Jevon Vazquez MD [address] [place] [address] #1 #1 JOSEP [place] [address] PCP - General 03/23/22 documented as of this encounter
--- OUTSIDE RECORDS SUMMARY | 2025-01-27 15:00 | XMS_ITS | Encounter Summary ---
Author Organization Healthcare Address [address] [place] [address] Care Team Providers Care Sonar Technician Name Role Phone Jevon Vazquez MD Primary Care Provider [phone] Reason for Visit * Reason Comments Labs Port Flush Encounter Details Date Type Department Care Team ([facility] Contact Info) Description 01/27/2025 3:00 PM EDT Clinical Support [facility] Hematology/BMT and Cellular Therapy Program [address] [place] [phone] Oscar Cortez, RN Social History Tobacco Use [...] Hematology/BMT and Cellular Therapy Program [address] [phone] 03/03/2025 1:30 PM EST Office Visit [facility] Hematology/BMT and Cellular Therapy Program [address] [phone] Zonia Hoffman, SPRAY GUNNER 800 [facility] [address] [place] [phone] documented as of this encounter Visit Diagnoses Not on filedocumented in this encounter Additional Health Concerns Assessment Noted Time A fall risk assessment has been complete d for the patient 01/27/2025 3:25 PM EDT A Body Mass Index follow-up plan has been documented for the patient 05/28/2024 1:52 PM EST documented as of this encounter Care Teams Sonar Technician Relationship Specialty Start Date End Date Jevon Vazquez MD [address] [place] [address] #1 #1 [place] [phone] PCP - General 03/23/22 documented as of this encounter
--- OUTSIDE RECORDS SUMMARY | 2025-01-27 15:30 | XMS_ITS | Encounter Summary ---
Author Organization [facility] Address 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) New Mckinney MD [address] [address] Phone: tel: fax: Referral ID Status Reason Start Date Expiration Date V isits Requested Visits Authorized [id number] Authorized 04/16/2024 01/27/2026 1 1 * Consultation (Urgent) - Authorized Specialty Diagnoses / Procedures Referred By Contac t Referred To Contact Medical Oncology Diagnoses 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) New Mckinney MD [address] [address] Phone: tel: fax: [address] [address] Phone: tel: Referral ID Status Reason Start Date Expiration Date Visits Requested Visits Authorized [id number] Authorized Specialty Services Required 07/29/2026 1 1 * Consultation (Urgent) - Authorized Specialty Diagnoses / Procedures Referred By Contac t Referred To Contact Medical Oncology Diagnoses 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) New Mckinney MD 800 [facility] [address] [address] Phone: tel: fax: [facility] [address] [place] [address] Phone: tel: Referral ID Status Reason Start Date Expiration Date Visits Requested Visits Authorized [id number] Authorized Specialty Services Required 07/29/2026 1 1 Encounter Details Date Type Department Care Team (Latest Contact Info) Description 01/27/2025 3:30 PM EDT Office Visit [facility] CC Hematology/BMT and Cellular Therapy Program [address] [phone] New Mckinney MD 800 [facility] [address] [place] [phone] Encounter for antineoplastic immunotherapy (Primary Dx); [...] k/??L. 12/2023- seen by [facility]. 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 Next generation sequencing: Abnormal: TP53 (c.814G>A; p.Vtv685Pnn) frequency 45%, DMNT3A (c.1522delC; p.[id number]) frequency 48%, RUNX1 (c.336_338delGCC; p.Osu057kih) frequency 35% Azacitidine + Venetoclax Cycle 1: [...] 5x/week monthly. - Will send referrals to [facility] and [place] for clinical trial evaluations. 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 Check CBC x 3 times/week at [facility] Labs reviewed today, Hgb 7.7 [...] Gerardo Pandey D.O. Hematology and Oncology Fellow [facility] Patient care and management discussed with attending, [...] understand that therapeutic options are limited, and tpvwd-lm-crot discussions remain essential moving forward. We will start oral decitabine and refer to [place] and [facility] for clinical trial evaluations * Progress Notes [...] Cycle 2: 03/22/24 Assessment/Plan: Rx sent to [facility]. Refills due 02/2025. Patient will [...] ([facility] st Contact Info) Description 03/03/2025 1:00 PM EST Clinical Support [facility] Hematology/BMT and Cellular Therapy Program [address] [phone] 03/03/2025 1:30 PM EST Office Visit [facility] Hematology/BMT and Cellular Therapy Program [address] [phone] Zonia Hoffman, SHOW HOST 800 [facility] [address] [place] [phone] Scheduled Referrals Name Type Priority Associated Diagnoses [...] - 99 mg/dL 01/27/2025 4:26 PM EDT [facility] BUN, Plasma 22 8 - 23 mg/dL 01/27/2025 4:26 PM EDT [facility] Creatinine, Plasma 1.10 0.60 - 1.10 mg/dL 01/27/2025 4:26 PM EDT [facility] BUN/Creatinine Ratio 20 01/27/2025 4:26 PM EDT [facility] Sodium, Plasma 138 136 - 145 mmol/L 01/27/2025 4:26 PM EDT [facility] Potassium, Plasma 4.6 3.6 - 4.9 mmol/L 01/27/2025 4:26 PM EDT [facility] Chloride, Plasma 106 97 - 107 mmol/L 01/27/2025 4:26 PM EDT [facility] CO2, Plasma 22 22 - 29 mmol/L 01/27/2025 4:26 PM EDT [facility] Anion Gap 10 6 - 16 mmol/L 01/27/2025 4:26 PM EDT [facility] Total Calcium, Plasma 9.6 8.9 - 10.2 mg/dL 01/27/2025 4:26 PM EDT [facility] Total Protein 6.2(L) 6.3 - 7.9 g/dL 01/27/2025 4:26 PM EDT [facility] Albumin, Plasma 3.9 3.5 - 5.2 g/dL 01/27/2025 4:26 PM EDT [facility] AST, Plasma 33 10 - 35 U/L 01/27/2025 4:26 PM EDT [facility] ALT, Plasma 11 10 - 35 U/L 01/27/2025 4:26 PM EDT [facility] Alkaline Phosphatase, Plasma 43(L) 46 - 142 U/L 01/27/2025 4:26 PM EDT [facility] Total Bilirubin, Plasma 0.5 0.2 - 1.1 mg/dL 01/27/2025 4:26 PM EDT [facility] eGFRcr 52.8 mL/min/1.7 3m*2 01/27/2025 4:26 PM EDT [facility] Comment:Reported eGFRcr in m L/min/1.73m2 is based the CKD-EPI 2020 equation that does not use a race coefficient. Blood Blood sample taken from central line / Unknown (Port) Long-term Catheter / Unknown 01/27/2025 3:00 PM EDT 01/27/2025 3:54 PM EDT us New Mckinney MD LAB BLOOD ORDERABLES Final Re sult [facility] 800 [place] [address] * (ABNORMAL) CBC and Differential (01/27/2025 3:00 PM EDT) WBC Count 1.22(L) 3.70 - 10.30 10*3/uL LAB HEMATOLOGY METHOD 01/27/2025 3:21 PM EDT [facility] RBC Count 2.90(L) 3.90 - 5.20 10*6/uL LAB HEMATOLOGY METHOD 01/27/2025 3:21 PM EDT [facility] HGB 8.9(L) 11.2 - 15.7 g/dL LAB HEMATOLOGY METHOD 01/27/2025 3:21 PM EDT [facility] HCT 26.3(L) 34.0 - 45.0 % LAB HEMATOLOGY METHOD 01/27/2025 3:21 PM EDT [facility] Platelet Count 23(L) 155 - 369 10*3/uL LAB HEMATOLOGY METHOD 01/27/2025 3:21 PM EDT [facility] MCV 91 79 - 98 fL LAB HEMATOLOGY METHOD 01/27/2025 3:21 PM EDT [facility] MCH 30.7 26.0 - 32.0 pg LAB HEMATOLOGY METHOD 01/27/2025 3:21 PM EDT [facility] MCHC 33.8 30.7 - 35.5 g/dL LAB HEMATOLOGY METHOD 01/27/2025 3:21 PM EDT [facility] RDW 17.7(H) 11.5 - 14.5 % LAB HEMATOLOGY METHOD 01/27/2025 3:21 PM EDT [facility] MPV 9.0 8.8 - 12.5 fL LAB HEMATOLOGY METHOD 01/27/2025 3:21 PM EDT [facility] nRBC 2.5(H) <=0.0 per 100 WBCs LAB HEMATOLOGY METHOD 01/27/2025 3:21 PM EDT [facility] Differential Type Automated LAB HEMATOLOGY METHOD 01/27/2025 3:21 PM EDT [facility] Neutrophils % 9 % LAB HEMATOLOGY METHOD 01/27/2025 3:21 PM EDT [facility] Lymphocytes % 78 % LAB HEMATOLOGY METHOD 01/27/2025 3:21 PM EDT [facility] Monocytes % 12 % LAB HEMATOLOGY METHOD 01/27/2025 3:21 PM EDT [facility] Eosinophils % 1 % LAB HEMATOLOGY METHOD 01/27/2025 3:21 PM EDT [facility] Basophils % 0 % LAB HEMATOLOGY METHOD 01/27/2025 3:21 PM EDT [facility] Immature Granulocytes % 0 % LAB HEMATOLOGY METHOD 01/27/2025 3:21 PM EDT [facility] Neutrophils Absolute 0.11(LL) 1.60 - 6.10 10*3/uL LAB HEMATOLOGY METHOD 01/27/2025 3:21 PM EDT [facility] Lymphocytes Absolute 0.95(L) 1.20 - 3.90 10*3/uL LAB HEMATOLOGY METHOD 01/27/2025 3:21 PM EDT [facility] Monocytes Absolute 0.15(L) 0.30 - 0.90 10*3/uL LAB HEMATOLOGY METHOD 01/27/2025 3:21 PM EDT [facility] Eosinophils Absolute 0.01 0.00 - 0.50 10*3/uL LAB HEMATOLOGY METHOD 01/27/2025 3:21 PM EDT [facility] Basophils Absolute 0.00 0.00 - 0.10 10*3/uL LAB HEMATOLOGY METHOD 01/27/2025 3:21 PM EDT [facility] Immature Granulocytes Absolute 0.00 0.00 - [...] ORDERABLES Final Re sult Performing Organization Address City/State/[facility] Co de Phone Number HEALTHCARE LAB [address] [place] [address] documented in this encounter Visit Diagnoses Diagnosis [...] documented as of this encounter Care Teams Conical Mixer Relationship Specialty Start Date End Date Jevon Vazquez MD [address] [place] [address] #1 #1 Julien JOSEP [phone] PCP - General 03/23/22 documented as of this encounter
[2025-02-11] MEDS: SODIUM CHLORIDE 0.9% 10ML FLUSH SYRINGE 10 ML IV (09:10)
--- OUTSIDE RECORDS SUMMARY | 2025-02-11 09:37 | XMS_ITS | Encounter Summary ---
Author Organization [facility] Address [address] [place] [address] Care Team Providers Care Crm Marketing Manager Name Role Phone Jevon Vazquez MD Primary Care Provider [phone] Encounter Details Date Type Department Care Team ([facility] Contact Info) Description 01/07/2025 Telephone [facility] Hematology/BMT and Cellular Therapy Program [address] [phone] Sabine Clemons MD 800 [facility] [address] [place] [phone] Social History Tobacco Use Types Packs/Day Years [...] Type Department Care Team ([facility] Contact Info) Description 03/03/2025 1:00 PM EST Clinical Support [facility] Hematology/BMT and Cellular Therapy Program [address] [phone] 03/03/2025 1:30 PM EST Office Visit [facility] Hematology/BMT and Cellular Therapy Program [address] [phone] Zonia Hoffman, NOXIOUS WEEDS AND PEST INSPECTOR 800 [facility] [address] [place] [address] documented as of this encounter Visit Diagnoses Not on filedocumented in this encounter Additional Health Concerns Assessment Noted Time A fall risk assessment has been complete d for the patient 09/30/2024 9:33 AM EDT A Body Mass Index follow-up plan has been documented for the patient 05/28/2024 1:52 PM EST documented as of this encounter Care Teams Crm Marketing Manager Relationship Specialty Start Date End Date Jevon Vazquez MD [address] [place] [address] #1 [address]1 [place] [phone] PCP - General 03/23/22 documented as of this encounter
--- OUTSIDE RECORDS SUMMARY | 2025-02-11 09:37 | XMS_ITS | Encounter Summary ---
Author Organization Healthcare Address [address] [place] [address] Care Team Providers Care Press Leader Name Role Phone Jevon Vazquez MD Primary Care Provider [phone] Encounter Details Date Type Department Care Team [...] Hematology/BMT and Cellular Therapy Program [address] [phone] 03/03/2025 1:30 PM EST Office Visit [facility] Hematology/BMT and Cellular Therapy Program [address] [phone] Zonia Hoffman, SUPERVISOR ERECTION SHOP 800 [facility] [address] [place] [phone] documented as of this encounter Visit Diagnoses Not on filedocumented in this encounter Additional Health Concerns Assessment Noted Time A fall risk assessment has been complete d for the patient 09/30/2024 9:33 AM EDT A Body Mass Index follow-up plan has been documented for the patient 05/28/2024 1:52 PM EST documented as of this encounter Care Teams Press Leader Relationship Specialty Start Date End Date Jevon Vazquez MD [address] [place] [address] #1 #1 [place] [phone] PCP - General 03/23/22 documented as of this encounter
--- OUTSIDE RECORDS SUMMARY | 2025-02-11 09:37 | XMS_ITS ---
Author Organization Healthcare Address [address] [place] [address] Care Team Providers Care Direct Support Worker Name Role Phone Jeovn Vazquez MD Primary Care Provider [phone] Active Problems Problem Noted Date Diagnosed Date [...]
--- OUTSIDE RECORDS SUMMARY | 2025-02-11 09:37 | XMS_ITS | Encounter Summary ---
Author Organization [facility] Address [address] [place] [address] Care Team Providers Care Tactical Debriefer Name Role Phone Jevon Vazquez MD Primary Care Provider [phone] Reason for Visit * Reason Comments Med Refill Encounter Details Date Type Department Care Team ([facility] Contact Info) Description 01/30/2024 Refill [facility] Hematology/BMT and Cellular Therapy Program [address] [phone] New Mckinney MD 800 [facility] [address] [place] [phone] Social History Tobacco Use Types Packs/Day Years [...] Team ([facility] Contact Info) Description 03/03/2025 1:00 PM EST Clinical Support [facility] Hematology/BMT and Cellular Therapy Program [address] [phone] 03/03/2025 1:30 PM EST Office Visit [facility] Hematology/BMT and Cellular Therapy Program [address] [phone] Zonia Hoffman, GENERAL OFFICE ASSOCIATE 800 [facility] [address] [place] [address] documented as of this encounter Visit Diagnoses Not on filedocumented in this encounter Additional Health Concerns Assessment Noted Time A fall risk assessment has been complete d for the patient 01/11/2024 9:16 AM EDT A Body Mass Index follow-up plan has been documented for the patient 01/21/2024 6:16 AM EDT documented as of this encounter Care Teams Tactical Debriefer Relationship Specialty Start Date End Date Jevon Vazquez MD [address] [place] [address] #1 #1 [place] [address] PCP - General 03/23/22 documented as of this encounter
--- OUTSIDE RECORDS SUMMARY | 2025-02-11 09:37 | XMS_ITS | Encounter Summary ---
Author Organization [facility] Address [address] [place] [address] Care Team Providers Care Offender Job Retention Specialist Name Role Phone Jevon Vazquez MD Primary Care Provider [phone] Reason for Visit * Reason Comments Med Refill Encounter Details Date Type Department Care Team ([facility] Contact Info) Description 02/02/2025 Refill [facility] Hematology/BMT and Cellular Therapy Program [address] [phone] Zonia Hoffman, FIELD APPRAISER 800 [facility] [address] [place] [phone] Social History Tobacco Use Types Packs/Day Years [...] Encounters Date Type Department Care Team ([facility] Contact Info) Description 03/03/2025 1:00 PM EST Clinical Support [facility] Hematology/BMT and Cellular Therapy Program [address] [phone] 03/03/2025 1:30 PM EST Office Visit [facility] Hematology/BMT and Cellular Therapy Program [address] [phone] Zonia Hoffman, FIELD APPRAISER 800 [facility] [address] [place] [address] documented as of this encounter Visit Diagnoses Not on filedocumented in this encounter Additional Health Concerns Assessment Noted Time A fall risk assessment has been complete d for the patient 01/27/2025 3:25 PM EDT A Body Mass Index follow-up plan has been documented for the patient 05/28/2024 1:52 PM EST documented as of this encounter Care Teams Offender Job Retention Specialist Relationship Specialty Start Date End Date Jevon Vazquez MD [address] [place] [address] #1 [address] [place] [address] PCP - General 03/23/22 documented as of this encounter
--- OUTSIDE RECORDS SUMMARY | 2025-02-11 09:37 | XMS_ITS | Encounter Summary ---
Author Organization Healthcare Address [address] [place] [address] Care Team Providers Care Rental Car Porter Name Role Phone Jevon Vazquez MD Primary Care Provider [phone] Encounter Details Date Type Department Care Team [...] Hematology/BMT and Cellular Therapy Program [address] [phone] 03/03/2025 1:30 PM EST Office Visit [facility] Hematology/BMT and Cellular Therapy Program [address] [phone] Zonia Hoffman, SECURITY ENGINEER 800 [facility] [address] [place] [phone] documented as of this encounter Visit Diagnoses Not on filedocumented in this encounter Additional Health Concerns Assessment Noted Time A fall risk assessment has been complete d for the patient 09/30/2024 9:33 AM EDT A Body Mass Index follow-up plan has been documented for the patient 05/28/2024 1:52 PM EST documented as of this encounter Care Teams Rental Car Porter Relationship Specialty Start Date End Date Jevon Vazquez MD [address] [place] [address] #1 #1 [place] [address] PCP - General 03/23/22 documented as of this encounter
--- OUTSIDE RECORDS SUMMARY | 2025-02-11 09:37 | XMS_ITS | Encounter Summary ---
Author Organization Healthcare Address [address] [place] [address] Care Team Providers Care Dumper Central Concrete Mixing Plant Name Role Phone Jevon Vazquez MD Primary Care Provider [phone] Encounter Details Date Type Department Care Team [...] Hematology/BMT and Cellular Therapy Program [address] [phone] 03/03/2025 1:30 PM EST Office Visit [facility] Hematology/BMT and Cellular Therapy Program [address] [phone] Zonia Hoffman, MANAGER SOCIAL RESPONSIBILITY 800 [facility] [address] [place] [phone] documented as of this encounter Visit Diagnoses Not on filedocumented in this encounter Additional Health Concerns Assessment Noted Time A fall risk assessment has been complete d for the patient 09/30/2024 9:33 AM EDT A Body Mass Index follow-up plan has been documented for the patient 05/28/2024 1:52 PM EST documented as of this encounter Care Teams Dumper [employer] Relationship Specialty Start Date End Date Jevon Vazquez MD [address] [place] [address] #1 #1 [place] [address] PCP - General 03/23/22 documented as of this encounter
--- OUTSIDE RECORDS SUMMARY | 2025-02-11 09:37 | XMS_ITS | Encounter Summary ---
Author Organization Healthcare Address [address] [place] [address] Care Team Providers Care Soft Tile Setter Name Role Phone Jevon Vazquez MD Primary Care Provider [phone] Encounter Details Date Type Department Care Team [...] Hematology/BMT and Cellular Therapy Program [address] [phone] 03/03/2025 1:30 PM EST Office Visit [facility] Hematology/BMT and Cellular Therapy Program [address] [phone] Zonia Hoffman, SYNTHETIC CLOTH BINDING CUTTER 800 [facility] [address] [place] [phone] documented as of this encounter Visit Diagnoses Not on filedocumented in this encounter Additional Health Concerns Assessment Noted Time A fall risk assessment has been complete d for the patient 09/30/2024 9:33 AM EDT A Body Mass Index follow-up plan has been documented for the patient 05/28/2024 1:52 PM EST documented as of this encounter Care Teams Soft Tile Setter Relationship Specialty Start Date End Date Jevon Vazquez MD [address] [place] [address] #1 #1 [place] [address] PCP - General 03/23/22 documented as of this encounter
--- OUTSIDE RECORDS SUMMARY | 2025-02-11 09:37 | XMS_ITS | Encounter Summary ---
Author Organization Healthcare Address [address] [place] [address] Care Team Providers Care Printed Circuit Board Panels Developer Name Role Phone Jevon Vazquez MD Primary Care Provider [phone] Encounter Details Date Type Department Care Team [...] Cellular Therapy Program [address] [address] 03/03/2025 1:30 PM EST Office Visit [facility] Hematology/BMT and Cellular Therapy Program [address] [phone] Zonia Hoffman, PLATE STACKER HAND 800 [facility] [address] [place] [phone] documented as of this encounter Visit Diagnoses Not on filedocumented in this encounter Additional Health Concerns Assessment Noted Time A fall risk assessment has been complete d for the patient 09/30/2024 9:33 AM EDT A Body Mass Index follow-up plan has been documented for the patient 05/28/2024 1:52 PM EST documented as of this encounter Care Teams Printed Circuit Board Panels Developer Relationship Specialty Start Date End Date Jevon Vazquez MD [address] [place] [address] #1 #1 [place] [address] PCP - General 03/23/22 documented as of this encounter
--- OUTSIDE RECORDS SUMMARY | 2025-02-11 09:37 | XMS_ITS | Encounter Summary ---
Author Organization Healthcare Address [address] [place] [address] Care Team Providers Care Coin Teller Name Role Phone Jevon Vazquez MD Primary Care Provider [phone] Encounter Details Date Type Department Care Team (Late Contact Info) Description 01/16/2025 Telephone [facility] Hematology/BMT and Cellular Therapy Program [address] [place] [address] [place] [address] Daxa Elliott RN [facility] HEMATOLOGY PROGRAM [...] Hematology/BMT and Cellular Therapy Program [address] [place] [address] 03/03/2025 1:30 PM EST Office Visit [facility] Hematology/BMT and Cellular Therapy Program 750 [facility] [place] [phone] Zonia Hoffman, INHALATION THERAPY TEACHER 800 [facility] [address] [place] [phone] documented as of this encounter Visit Diagnoses Not on filedocumented in this encounter Additional Health Concerns Assessment Noted Time A fall risk assessment has been complete d for the patient 09/30/2024 9:33 AM EDT A Body Mass Index follow-up plan has been documented for the patient 05/28/2024 1:52 PM EST documented as of this encounter Care Teams Coin Teller Relationship Specialty Start Date End Date Jevon Vazquez MD [address] [place] [address] #1 #1 [place] [address] PCP - General 03/23/22 documented as of this encounter
--- OUTSIDE RECORDS SUMMARY | 2025-02-11 09:38 | XMS_ITS | Encounter Summary ---
Author Organization Healthcare Address [address] [place] [address] Care Team Providers Care Chassis Mechanic Name Role Phone Jevon Vazquez MD Primary Care Provider [phone] Encounter Details Date Type Department Care Team ([facility] Contact Info) Description 12/29/2024 Telephone [facility] Hematology/BMT and Cellular Therapy Program [address] [phone] Bibiana Sepulveda, CUSTODIAN BLOOD BANK 800 [facility] [address] [place] [phone] Social History Tobacco Use Types Packs/Day Years [...] wants to repeat BMBx. She verbalizes understanding. Service Associate made aware. documented in this encounter Plan of Treatment Upcoming Encounters Date Type Department Care Team ([facility] Contact Info) Description 03/03/2025 1:00 PM EST Clinical Support [facility] Hematology/BMT and Cellular Therapy Program [address] [place] [address] 03/03/2025 1:30 PM EST Office Visit [facility] Hematology/BMT and Cellular Therapy Program [address] [place] [address] Zonia Hoffman, CUSTODIAN BLOOD BANK 800 [facility] [address] [place] [phone] documented as of this encounter Visit Diagnoses Not on filedocumented in this encounter Additional Health Concerns Assessment Noted Time A fall risk assessment has been complete d for the patient 09/30/2024 9:33 AM EDT A Body Mass Index follow-up plan has been documented for the patient 05/28/2024 1:52 PM EST documented as of this encounter Care Teams Chassis Mechanic Relationship Specialty Start Date End Date Jevon Vazquez MD [address] [place] [address] #1 #1 [place] [address] PCP - General 03/23/22 documented as of this encounter
--- OUTSIDE RECORDS SUMMARY | 2025-02-11 09:38 | XMS_ITS | Encounter Summary ---
Author Organization [facility] Address [address] [place] [address] Care Team Providers Care Account Clerk Name Role Phone Jevon Vazquez MD Primary Care Provider [phone] Reason for Referral * Genetic Testing (Routine) - Closed Specialty Diagnoses / Procedures Referred By Rebecca Referred To Contact Lab Diagnoses Myelodysplastic syndrome (CMS/HCC) Procedures Cytogenetics Testing, Oncology New Mckinney MD [address] [address] Phone: tel: fax: Referral ID Status Reason Start Date Expiration Date Visits Re quested Visits Authorized [id number] Closed 12/29/2024 06/30/2026 1 1 * Genetic Testing (Routine) - Authorized Specialty Diagnoses / Procedures [facility] Referred To Contact Lab Diagnoses Myelodysplastic syndrome (CMS/HCC) Procedures Leukemia/Lymphoma - Immunophenotyping by Flow Cytometry New Mckinney MD 800 [facility] [address] [address] Phone: tel: fax: Referral ID Status Reason Start Date Expiration Date V isits Requested Visits Authorized [id number] Authorized 12/29/2024 06/30/2026 1 1 * Genetic Testing (Routine) - Authorized Specialty Diagnoses / Procedures [facility] Referred To Contact Lab Diagnoses Myelodysplastic syndrome (CMS/HCC) Procedures Bone marrow exam New Mckinney MD 800 [facility] [address] [place] [phone] Phone: tel: fax: Referral ID Status Reason Start Date Expiration Date V isits Requested Visits Authorized [id number] Authorized 12/29/2024 06/30/2026 1 1 Encounter Details Date Type Department Care Team ([facility] Contact Info) Description 12/29/2024 Orders Only [facility] Hematology/BMT and Cellular Therapy Program [address] [place] [address] New Mckinney MD 800 [facility] [address] [place] [phone] Myelodysplastic syndrome (CMS/HCC) (Primary Dx) Social [...] Hematology/BMT and Cellular Therapy Program [address] [place] [address] 03/03/2025 1:30 PM EST Office Visit [facility] Hematology/BMT and Cellular Therapy Program [address] [place] [address] Zonia Hoffman APRN 800 [facility] [address] [address] documented as of this encounter Results * Leukemia/Lymphoma - Immunophenotyping by Flow Cytometry (01/12/2025 9:55 AM EDT) Clinical Indication MDS 01/12/2025 4:19 PM EDT [facility] Flow Cytometry Interpretation APPROXIMATELY 27% MYELOID BLASTS EXPRESSING CD34, CD117, VARIABLE CD33, PARTIAL CD56, VARIABLE HLA-DR, PARTIAL DIM CD7, CD38 AND DIM CD45, SEE COMMENT, BBONE MARROW ASPIRATE. 01/12/2025 4:19 PM EDT [facility] Comments Specimen viability is [...] surface light chains 01/12/2025 4:19 PM EDT [facility][1] Disclaimer This test was developed and its performance characteristics determined by the Immuno-Molecular Pathology Laboratory at the [facility]. It has not been cleared [...] clinical laboratory testing. 01/12/2025 4:19 PM EDT [facility] Pathologist Signature Reviewed by: Asad Hartman MD 01/12/2025 4:19 PM EDT [facility] MRD Indicated Test Not Indicated 4:19 PM EDT [facility] Bone Marrow Specimen from bone marrow obtained by aspiration / Unknown Non-blood Collection / Unknown 01/12/2025 9:55 AM EDT 01/12/2025 1:48 PM EDT us New Mckinney MD LAB FLOW CYTOMETRY ORDERABLES Final Result [facility] [address] [place] [address] * Bone marrow exam (01/12/2025 9:55 AM EDT) Case Report Bone Marrow Case: [id number] Authorizing Provider: New Mckinney MD Collected: 01/12/2025 0955 Ordering Location: [facility] Hematology/BMT and Received: 01/12/2025 [facility] Cellular Therapy Program Pathologist: Asad Hartman MD Specimens: A) - Bone Marrow Aspirate, left B) - Bone Marrow Biopsy, left C) - Peripheral Blood for Bone Marrow 5:16 PM EDT [facility][1] Cytogenetics Report, Addendum Chromosome Analysis Result: Giemsa-banded metaphase cells from unstimulated bone marrow cultures showed the following chromosome pattern: 43~44,X,-X,add(5)( q23),del(5)(q13q33 ),todd(7)ins?(7)(q1 1.2q11.2)t(7;12)(q 11.2;q13),-12,todd( 17)add(17)(p13.2)a dd(17)(q21)[16]/88 ,XX,idemx2[cp3]/46 ,XY[1] Interpretation: Abnormal female chromosome analysis. 95% of metaphase cells analyzed showed clonal abnormalities consistent with this patient's previous abnormal results (see [facility]-[id number]). 5:16 PM EDT [facility] [...] RING SIDEROBLASTS, SEE COMMENT. 5:16 PM EDT [facility] at 0941 EDT Comment The discrepancy between blasts percentage by morphologic assessment and flow cytometric analysis is due to erythroid precursors that constitute majority of bone marrow cellularity and are removed by flow cytometry. 5:16 PM EDT [facility] Clinical Information MDS 01/14 5:16 PM EDT [facility] [...] cells. Platelets are decreased. 5:16 PM EDT [facility] Bone Marrow Differential BONE MARROW DIFFERENTIAL: 300 cells Normal Patient Neutrophils 15-50 12 Metamyelocytes 4-19 0 Myelocytes 1-18 1 Promyelocytes 1-8 0 Blasts 0-2 7 Monocytes 0-5 7 Erythroid 16-38 61 Lymphocytes 3-24 7 Eosinophils 0-6 3 Basophils 0-2 0 Plasma cells 0-4 2 Other 5:16 PM EDT [facility] Aspirate Smear The bone [...] of erythroid precursors. 5 5:16 PM EDT [facility] Core Biopsy CELLULARITY: Variably [...] trabeculae are normal. 5 5:16 PM EDT [facility][1] Special and Immunohistochemical Stains Immunohistochemica l stains [...] [facility], [address] [place] [address]. All tests reported here, except those addressing [...] negativity on decalcified specimens. 5:16 PM EDT [facility] Flow Cytometry Interpretation Flow cytometric analysis demonstrates approximately 27% population of myeloid blasts in this patient with history of myelodysplastic syndrome; expressing CD34, CD117, variable CD33, partial CD56, variable HLA-DR, partial dim CD7, CD38 and dim CD45 ([id number]). 5:16 PM EDT [facility] Gross Description B. LEFT A single specimen is received in formalin labeled bone marrow biopsy left posterior iliac crest and consists of 1 piece(s) of red/white tissue measuring 0.9 cm in length 0.2 cm in diameter. The specimen is submitted in to Histology for decalcification and routine processing. Cold Time: <1m 5:16 PM EDT [facility] Note: A resident was involved in the service. I attest I examined the relevant preparations for the specimens and confirmed the diagnosis or interpretation. 5:16 PM EDT [facility] [...] Final [facility] [address] [place] [address] documented in this encounter Visit Diagnoses Diagnosis Myelodysplastic syndrome (CMS/HCC)- Primary Myelodysplastic syndrome, unspecified documented in this encounter Additional Health Concerns Assessment Noted Time A fall risk assessment has been complete d for the patient 09/30/2024 9:33 AM EDT A Body Mass Index follow-up plan has been documented for the patient 05/28/2024 1:52 PM EST documented as of this encounter Care Teams Account Clerk Relationship Specialty Start Date End Date Jevon Vazquez MD [address] [place] [address] #1 #1 [place] [address] PCP - General 03/23/22 documented as of this encounter
--- OUTSIDE RECORDS SUMMARY | 2025-02-11 09:38 | XMS_ITS | Encounter Summary ---
Author Organization [facility] Address [address] [place] [address] Care Team Providers Care Housekeeper Cleaning Cooking Name Role Phone Jevon Vazquez MD Primary Care Provider [phone] Reason for Visit * Reason Comments Med Refill Encounter Details Date Type Department Care Team ([facility] Contact Info) Description 01/05/2025 Refill [facility] Hematology/BMT and Cellular Therapy Program [address] [phone] Zonia Hoffman, HYDRO STATION OPERATOR 800 [facility] [address] [place] [phone] Social History Tobacco Use Types Packs/Day Years [...] ([facility] Contact Info) Description 03/03/2025 1:00 PM EST Clinical Support [facility] Hematology/BMT and Cellular Therapy Program [address] [phone] 03/03/2025 1:30 PM EST Office Visit [facility] Hematology/BMT and Cellular Therapy Program [address] [address] Zonia Hoffman, HYDRO STATION OPERATOR 800 [facility] [address] [place] [address] documented as of this encounter Visit Diagnoses Not on filedocumented in this encounter Additional Health Concerns Assessment Noted Time A fall risk assessment has been complete d for the patient 09/30/2024 9:33 AM EDT A Body Mass Index follow-up plan has been documented for the patient 05/28/2024 1:52 PM EST documented as of this encounter Care Teams Housekeeper Cleaning Cooking Relationship Specialty Start Date End Date Jevon Vazquez MD [address] [place] [address] #1 #1 [place] [address] PCP - General 03/23/22 documented as of this encounter
--- OUTSIDE RECORDS SUMMARY | 2025-02-11 09:38 | XMS_ITS | Clinical Summary ---
Author Organization [facility] Address [address] [place] [address] Care Team Providers Care Chairman President And Chief Executive Officer Name Role Phone David Vazquez Primary Care Provider [phone] Allergies No known active allergies Medications atorvastatin [...] Discontinued 01/24/2023 Medical Devices Implanted Type Area Direct Sales Consultant Device Identifier Shelf Expiration Date Model / Serial / Lot Mis Ply Scr 6.5x50mm - [id number] Implanted:Qty : 1 on 01/30/2023 by Ivan Bartholomew MD at [facility] Screw N/A: Spine Lumbar [employer] [id number] / / Mis Ply Scr 6.5x45mm - [id number] Implanted:Qty : 3 on 01/30/2023 by Ivan Bartholomew MD at [facility] Screw N/A: Spine Lumbar [employer] [id number] / / Reline Mas Reduction Screw 7.5x45 - [id number] Implanted:Qty : 2 on 01/30/2023 by Ivan Bartholomew MD at [facility] Screw N/A: Spine Lumbar [employer] [id number] / / Grft Dbm Vesuvius Putty 5cc - [id number] Implanted:Qty : 1 on 01/30/2023 by Ivan Bartholomew MD at [facility] [employer] [id number] 04/20/2025 [id number] [id number] P / [id number] 1 / Putty I-Factor 5.0cc - [id number] Implanted:Qty : 1 on 01/30/2023 by Ivan Bartholomew MD at [facility] N/A: Spine Lumbar [employer] 03/15/2025 [id number] / / [id number] Modulus Xlw [id number] 10 Degree - [id number] Implanted:Qty : 1 on 01/30/2023 by Ivan Bartholomew MD at [facility] N/A: Spine Lumbar [employer] [id number] / / [id number] Modulus Xlw [id number] - [id number] Implanted:Qty : 1 on 01/30/2023 by Ivan Bartholomew MD at [facility] N/A: Spine Lumbar [employer] 09/28/2027 [id number] / / [id number] Reln Lock Scr 5.5mm Opn Tulip - [id number] Implanted:Qty : 6 on 01/30/2023 by Ivan Bartholomew MD at [facility] N/A: Spine Lumbar [employer] [id number] / / Reln Mas Ti Petar 5.5x70mm - [id number] Implanted:Qty : 2 on 01/30/2023 by Ivan Bartholomew MD at [facility] N/A: Spine Lumbar [employer] [id number] / / Procedures Procedure Name Priority Date/Time [...] LAB Glucose 125(H) 71 - 99 mg/dL [facility] Comment:Reference range (71- [...] mL/min/1.73m2. Calcium 10.3 8.5 - 10.5 mg/dL [facility] BUN/Creatinine Ratio 14 [facility] Serum 01/24/2023 2:32 PM EDT 01/24/2023 5:54 PM EDT Lexi SUAREZ CHEMISTRY ORDERABLES Final Resu lt [facility] [address] from Last 3 Months or Most Recently Relevant to Health Maintenance Insurance MEDICARE Member Subscriber Plan / Payer (Ef fective 2016-Present) Name:Ashly Briceño Member ID:[id number] Relation to Subscriber:Self Name:Ashly Briceño Subscriber ID:[id number] Payer ID:[id number] Group ID:Not on file Type:Medicare Address: [facility] J15 PART A [facility] [place] [address] [place] [address] [facility] Advance Directives For more information, please contact: [phone] * Full Code (Latest Code Status on File) Date Activated Date Inactivated Comments 01/30/2023 9:13 AM No automated chest compression devices for V[facility] Patients Care Teams Chairman President And Chief Executive Officer Relationship Specialty Start Date End Date David Vazquez [address] [place] [address] PCP - General 01/24/23
--- OUTSIDE RECORDS SUMMARY | 2025-02-11 09:38 | XMS_ITS | Encounter Summary ---
Author Organization [facility] Address [address] [place] [address] Care Team Providers Care Preassembler And Inspector Name Role Phone Jevon Vazquez MD Primary Care Provider [phone] Reason for Visit * Reason Comments Med Refill Encounter Details Date Type Department Care Team ([facility] Contact Info) Description 01/07/2025 Refill [facility] Hematology/BMT and Cellular Therapy Program [address] [phone] Zonia Hoffman, HOME COORDINATOR 800 [facility] [address] [place] [phone] Social History Tobacco Use Types Packs/Day Years [...] ([facility] Contact Info) Description 03/03/2025 1:00 PM EST Clinical Support [facility] Hematology/BMT and Cellular Therapy Program [address] [phone] 03/03/2025 1:30 PM EST Office Visit [facility] Hematology/BMT and Cellular Therapy Program [address] [phone] Zonia Hoffman, HOME COORDINATOR 800 [facility] [address] [place] [address] documented as of this encounter Visit Diagnoses Not on filedocumented in this encounter Additional Health Concerns Assessment Noted Time A fall risk assessment has been complete d for the patient 09/30/2024 9:33 AM EDT A Body Mass Index follow-up plan has been documented for the patient 05/28/2024 1:52 PM EST documented as of this encounter Care Teams Preassembler And Inspector Relationship Specialty Start Date End Date Jevon Vazquez MD [address] [place] [address] #1 [address]1 [place] [address] PCP - General 03/23/22 documented as of this encounter
--- OUTSIDE RECORDS SUMMARY | 2025-02-11 09:39 | XMS_ITS | Encounter Summary ---
Author Organization Healthcare Address [address] [place] [address] Care Team Providers Care Parquetry Layer Name Role Phone Jevon Vazquez MD Primary Care Provider [phone] Encounter Details Date Type Department Care Team [...] Hematology/BMT and Cellular Therapy Program [address] [phone] 03/03/2025 1:30 PM EST Office Visit [facility] Hematology/BMT and Cellular Therapy Program [address] [phone] Zonia Hoffman, PAVING INSPECTOR 800 [facility] [address] [place] [phone] documented as of this encounter Visit Diagnoses Not on filedocumented in this encounter Additional Health Concerns Assessment Noted Time A fall risk assessment has been complete d for the patient 09/30/2024 9:33 AM EDT A Body Mass Index follow-up plan has been documented for the patient 05/28/2024 1:52 PM EST documented as of this encounter Care Teams Parquetry Layer Relationship Specialty Start Date End Date Jevon Vazquez MD [address] [place] [address] #1 #1 [place] [address] PCP - General 03/23/22 documented as of this encounter
--- OUTSIDE RECORDS SUMMARY | 2025-02-11 09:39 | XMS_ITS | Encounter Summary ---
Author Organization Healthcare Address [address] [place] [address] Care Team Providers Care Engineering Production Liaison Name Role Phone Jevon Vazquez MD Primary Care Provider [phone] Encounter Details Date Type Department Care Team [...] Hematology/BMT and Cellular Therapy Program [address] [phone] 03/03/2025 1:30 PM EST Office Visit [facility] Hematology/BMT and Cellular Therapy Program [address] [phone] Zonia Hoffman, BRAND SALES CONSULTANT 800 [facility] [address] [place] [phone] documented as of this encounter Visit Diagnoses Not on filedocumented in this encounter Additional Health Concerns Assessment Noted Time A fall risk assessment has been complete d for the patient 09/30/2024 9:33 AM EDT A Body Mass Index follow-up plan has been documented for the patient 05/28/2024 1:52 PM EST documented as of this encounter Care Teams Engineering Production Liaison Relationship Specialty Start Date End Date Jevon Vazquez MD [address] [place] [address] #1 #1 [place] [address] PCP - General 03/23/22 documented as of this encounter
--- OUTSIDE RECORDS SUMMARY | 2025-02-11 09:39 | XMS_ITS | Encounter Summary ---
Author Organization Healthcare Address [address] [place] [address] Care Team Providers Care Bleach Supervisor Name Role Phone Jevon Vazquez MD Primary Care Provider [phone] Encounter Details Date Type Department Care Team ([facility] Contact Info) Description 01/28/2025 Telephone [facility] Hematology/BMT and Cellular Therapy Program [address] [phone] [place] MD 800 [facility] [address] [place] [phone] Social History Tobacco Use Types Packs/Day Years [...] patient to inform patient of appointment at [facility] on 02/04. Patient was informed that a [employer] message will be sent with information. documented in this encounter Plan of Treatment Upcoming Encounters Date Type Department Care Team ([facility] Contact Info) Description 03/03/2025 1:00 PM EST Clinical Support [facility] Hematology/BMT and Cellular Therapy Program [address] [place] [address] 03/03/2025 1:30 PM EST Office Visit [facility] Hematology/BMT and Cellular Therapy Program [address] [place] [address] Zonia Hoffman, RESIDENT ATHLETIC TRAINER 800 [facility] [address] [place] [phone] documented as of this encounter Visit Diagnoses Not on filedocumented in this encounter Additional Health Concerns Assessment Noted Time A fall risk assessment has been complete d for the patient 01/27/2025 3:25 PM EDT A Body Mass Index follow-up plan has been documented for the patient 05/28/2024 1:52 PM EST documented as of this encounter Care Teams Bleach Supervisor Relationship Specialty Start Date End Date Jevon Vazquez MD [address] [place] [address] #1 #1 [place] [id number] PCP - General 03/23/22 documented as of this encounter
--- OUTSIDE RECORDS SUMMARY | 2025-02-11 09:39 | XMS_ITS | Encounter Summary ---
Author Organization [facility] Address [address] [place] [address] Care Team Providers Care Curriculum And Instruction Specialist Name Role Phone Jevon Vazquez MD Primary Care Provider [phone] Encounter Details Date Type Department Care Team (Late st Contact Info) Description 01/27/2025 Telephone [facility] [address] [place] [phone] Emil Hardy, PharmD Social History Tobacco Use [...] Valdes, PharmD - 01/28/2025 2:40 PM EDT [facility] Specialty Medication Initial Care Plan Ashly Hernández [...] Injectable, preservative free 03/21/2024 Moderna COVID-19 Vaccine (Yacht Master) 12+ years 06/12/2020, 07/10/2020, 02/18/2021 Selected lab [...] Patient reports education was provided by [facility]. She denied further education at this time [...] [facility] Hematology/BMT and Cellular Therapy Program [address] [address] 03/03/2025 1:30 PM EST Office Visit [facility] Hematology/BMT and Cellular Therapy Program [address] [address] Zonia Hoffman, POOL NURSE 800 [facility] [address] [place] [phone] documented as of this encounter Visit Diagnoses Not on filedocumented in this encounter Additional Health Concerns Assessment Noted Time A fall risk assessment has been complete d for the patient 01/27/2025 3:25 PM EDT A Body Mass Index follow-up plan has been documented for the patient 05/28/2024 1:52 PM EST documented as of this encounter Care Teams Curriculum And Instruction Specialist Relationship Specialty Start Date End Date Jevon Vazquez MD [address] [place] [address] #1 #1 [place] [id number] PCP - General 03/23/22 documented as of this encounter
--- OUTSIDE RECORDS SUMMARY | 2025-02-11 09:39 | XMS_ITS | Encounter Summary ---
Author Organization Healthcare Address [address] [place] [address] Care Team Providers Care Sustainable Agriculture Specialist Name Role Phone Jevon Vazquez MD [...] Hematology/BMT and Cellular Therapy Program [address] [phone] 03/03/2025 1:30 PM EST Office Visit [facility] Hematology/BMT and Cellular Therapy Program [address] [phone] Zonia Hoffman, RECYCLING MANAGER 800 [facility] [address] [place] [phone] documented as of this encounter Visit Diagnoses Not on filedocumented in this encounter Additional Health Concerns Assessment Noted Time A fall risk assessment has been complete d for the patient 09/30/2024 9:33 AM EDT A Body Mass Index follow-up plan has been documented for the patient 05/28/2024 1:52 PM EST documented as of this encounter Care Teams Sustainable Agriculture Specialist Relationship Specialty Start Date End Date Jevon Vazquez MD [address] [place] [address] #1 #1 [place] [address] PCP - General 03/23/22 documented as of this encounter
--- OUTSIDE RECORDS SUMMARY | 2025-02-11 09:39 | XMS_ITS | Encounter Summary ---
Author Organization Healthcare Address [address] [place] [address] Care Team Providers Care Cassandra Consultant Name Role Phone Jveon Vazquez MD Primary Care Provider [phone] Encounter Details Date Type Department Care Team [...] Hematology/BMT and Cellular Therapy Program [address] [address] 03/03/2025 1:30 PM EST Office Visit [facility] Hematology/BMT and Cellular Therapy Program [address] [phone] Zonia Hoffman, PRODUCTION MANAGER 800 [facility] [address] [place] [phone] documented as of this encounter Visit Diagnoses Not on filedocumented in this encounter Additional Health Concerns Assessment Noted Time A fall risk assessment has been complete d for the patient 01/27/2025 3:25 PM EDT A Body Mass Index follow-up plan has been documented for the patient 05/28/2024 1:52 PM EST documented as of this encounter Care Teams Cassandra Consultant Relationship Specialty Start Date End Date Jevon Vazquez MD [address] [place] [address] #1 [address]1 [place] [address] PCP - General 03/23/22 documented as of this encounter
--- OUTSIDE RECORDS SUMMARY | 2025-02-11 09:39 | XMS_ITS | Encounter Summary ---
Author Organization Healthcare Address [address] [place] [address] Care Team Providers Care Police Detention Attendant Name Role Phone Jevon Vazquez MD Primary Care Provider [phone] Encounter Details Date Type Department Care Team [...] Hematology/BMT and Cellular Therapy Program [address] [address] 03/03/2025 1:30 PM EST Office Visit [facility] Hematology/BMT and Cellular Therapy Program [address] [address] Zonia Hoffman, CHIEF COMPLIANCE OFFICER 800 [facility] [address] [place] [phone] documented as of this encounter Visit Diagnoses Not on filedocumented in this encounter Additional Health Concerns Assessment Noted Time A fall risk assessment has been complete d for the patient 09/30/2024 9:33 AM EDT A Body Mass Index follow-up plan has been documented for the patient 05/28/2024 1:52 PM EST documented as of this encounter Care Teams Police Detention Attendant Relationship Specialty Start Date End Date Jevon Vazquez MD [address] [place] [address] #1 #1 [place] [address] PCP - General 03/23/22 documented as of this encounter
--- OUTSIDE RECORDS SUMMARY | 2025-02-11 09:39 | XMS_ITS | Encounter Summary ---
Author Organization [facility] Address [address] [place] [address] Care Team Providers Care Pbx Installer Name Role Phone Jevon Vazquez MD Primary Care Provider [phone] Encounter Details Date Type Department Care Team ([facility] Contact Info) Description 01/27/2025 Telephone [facility] Hematology/BMT and Cellular Therapy Program [address] [place] [address] Alyson Vivas RN Social History Tobacco Use [...] Hematology/BMT and Cellular Therapy Program [address] [place] [address] 03/03/2025 1:30 PM EST Office Visit [facility] Hematology/BMT and Cellular Therapy Program [address] [place] [phone] Zonia Hoffman, TOY TRAINS AND ACCESSORIES SALESPERSON 800 [facility] [address] [place] [address] documented as of this encounter Visit Diagnoses Not on filedocumented in this encounter Additional Health Concerns Assessment Noted Time A fall risk assessment has been complete d for the patient 01/27/2025 3:25 PM EDT A Body Mass Index follow-up plan has been documented for the patient 05/28/2024 1:52 PM EST documented as of this encounter Care Teams Pbx Installer Relationship Specialty Start Date End Date Jevon Vazquez MD [address] [place] [address] #1 [address]1 [place] [address] PCP - General 03/23/22 documented as of this encounter
--- OUTSIDE RECORDS SUMMARY | 2025-02-11 09:39 | XMS_ITS | Clinical Summary ---
Author Organization [facility] Address [address] [place] [address] Care Team Providers Care Public Welfare Worker Name Role Phone Jevon Vazquez MD [...] Refill [facility] Hematology/BMT and Cellular Therapy Program [address] [place] [address] [place] [phone] Zonia Hoffman APRN 01/28/2025 Telephone [facility] Hematology/BMT and Cellular Therapy Program [address] [place] [address] [place] [phone] New Mckinney MD 01/27/2025 3:30 PM EDT Office Visit [facility] Hematology/BMT and Cellular Therapy Program [address] [place] [address] [place] [phone] New Mckinney MD Encounter for antineoplastic immunotherapy (Primary Dx); 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); Immunosuppressed status (CMS/HCC) 01/27/2025 3:00 PM EDT Clinical Support [facility] Hematology/BMT and Cellular Therapy Program [address] [place] [address] [place] [phone] Oscar Cortez, RN 01/27/2025 Telephone [facility] [address] [place] [phone] Emil Hardy, PharmD 01/27/2025 Telephone [facility] Hematology/BMT and Cellular Therapy Program [address] [phone] Alyson Vivas RN 01/27/2025 Travel 01/20/2025 Travel 01/16/2025 Telephone [facility] Hematology/BMT and Cellular Therapy Program [address] [phone] Daxa Elliott RN 01/12/2025 10:00 AM EDT Procedure Visit [facility] Hematology/BMT and Cellular Therapy Program [address] [place] [phone] Rebecca Barrientos PA Myelodysplastic syndrome (CMS/HCC); 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) 01/12/2025 9:30 AM EDT Clinical Support [facility] Hematology/BMT and Cellular Therapy Program [address] [place] [phone] 01/12/2025 Travel 01/07/2025 Travel 01/07/2025 Telephone [facility]ology[facility]BMT [facility] Cellular Therapy Program [address] [phone] Sabine Clemons MD 01/07/2025 Refill [facility] H[facility]ology[facility]BMT [facility] Cellular Therapy Program [address] [phone] Zonia Hoffman, HYDRAULIC OIL TOOL OPERATOR 01/05/2025 Travel 01/05/2025 Refill [facility]ology[facility]BMT [facility] Cellular Therapy Program [address] [phone] Zonia Hoffman, HYDRAULIC OIL TOOL OPERATOR 12/29/2024 Orders Only [facility] Hematology/BMT and Cellular Therapy Program [address] [phone] New Mckinney MD Myelodysplastic syndrome (CMS/HCC) (Primary Dx) 12/29/2024 Telephone [facility] Hematology/BMT and Cellular Therapy Program 750 [facility], [address] [place] [phone] Bibiana Sepulveda, HYDRAULIC OIL TOOL OPERATOR 12/28/2024 Travel 12/26/2024 Travel 12/25/2024 Travel 12/24/2024 Travel 12/23/2024 Travel 12/11/2024 Telephone [facility] Hematology/BMT and Cellular Therapy Program [address] [phone] New Mckinney MD 12/10/2024 Travel 12/09/2024 Refill [facility]ology[facility]BMT [facility] Cellular Therapy Program [address] [phone] Zonia Hoffman, HYDRAULIC OIL TOOL OPERATOR 11/27/2024 Telephone [facility]ology[facility]MT [facility] Cellular Therapy Program [address] [phone] Zonia Hoffman, HYDRAULIC OIL TOOL OPERATOR 11/26/2024 Travel 11/25/2024 Travel 11/24/2024 Travel 11/23/2024 Travel 11/22/2024 Travel 11/13/2024 Orders Only [facility] Hematology/BMT and Cellular Therapy Program [address] [phone] 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, water use inspector 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) 11/12/2024 Travel 11/12/2024 Telephone [facility] Hematology/BMT and Cellular Therapy Program [address] [phone] Zonia Hoffman, HYDRAULIC OIL TOOL OPERATOR 11/11/2024 Travel from Last 3 Months Immunizations Immunization [...] Hematology/BMT and Cellular Therapy Program [address] [phone] 03/03/2025 1:30 PM EST Office Visit [facility] Hematology/BMT and Cellular Therapy Program [address] [phone] Zonia Hoffman, HYDRAULIC OIL TOOL OPERATOR 800 [facility] [address] [place] [phone] Health Maintenance Due Date Last Done Comments [...] 05/16/2023 03/21/2023 UKY-Bone Density Scan 07/25/2024 07/25/2022 [id number] Vaccine (4 - season) 2024 02/18/2021, 07/10/2020, [...] this topic Medical Devices Implanted Type Area Oil Pump Station Operator Chief Device Identifier Shelf Expiration Date Model / Serial / Lot Port Clearvue Power 8fr - [id number] Implanted:Qty: 1 on 01/21/2024 by Ness Sargent MD at [facility] [employer]-[id number] / / Procedures Procedure Name Priority Date/Time [...] LAB HEMATOLOGY METHOD 01/27/2025 3:21 PM EDT [facility] RBC Count 2.90(L) 3.90 - 5.20 10*6/uL LAB HEMATOLOGY METHOD 01/27/2025 3:21 PM EDT [facility] HGB 8.9(L) 11.2 - 15.7 g/dL LAB HEMATOLOGY METHOD 01/27/2025 3:21 PM EDT [facility] HCT 26.3(L) 34.0 - 45.0 % LAB HEMATOLOGY METHOD 01/27/2025 3:21 PM EDT [facility] Platelet Count 23(L) 155 - 369 10*3/uL LAB HEMATOLOGY METHOD 01/27/2025 3:21 PM EDT [facility] MCV 91 79 - 98 fL LAB HEMATOLOGY METHOD 01/27/2025 3:21 PM EDT [facility] MCH 30.7 26.0 - 32.0 pg LAB HEMATOLOGY METHOD 01/27/2025 3:21 PM EDT [facility] MCHC 33.8 30.7 - 35.5 g/dL LAB HEMATOLOGY METHOD 01/27/2025 3:21 PM EDT [facility] RDW 17.7(H) 11.5 - 14.5 % LAB HEMATOLOGY METHOD 01/27/2025 3:21 PM EDT [facility] MPV 9.0 8.8 - 12.5 fL LAB HEMATOLOGY METHOD 01/27/2025 3:21 PM EDT [facility] nRBC 2.5(H) <=0.0 per 100 WBCs LAB HEMATOLOGY METHOD 01/27/2025 3:21 PM EDT [facility] Differential Type Automated LAB HEMATOLOGY METHOD 01/27/2025 3:21 PM EDT [facility] Neutrophils % 9 % LAB HEMATOLOGY METHOD 01/27/2025 3:21 PM EDT [facility] Lymphocytes % 78 % LAB HEMATOLOGY METHOD 01/27/2025 3:21 PM EDT [facility] Monocytes % 12 % LAB HEMATOLOGY METHOD 01/27/2025 3:21 PM EDT [facility] Eosinophils % 1 % LAB HEMATOLOGY METHOD 01/27/2025 3:21 PM EDT [facility] Basophils % 0 % LAB HEMATOLOGY METHOD 01/27/2025 3:21 PM EDT [facility] Immature Granulocytes % 0 % LAB HEMATOLOGY METHOD 01/27/2025 3:21 PM EDT [facility] Neutrophils Absolute 0.11(LL) 1.60 - 6.10 10*3/uL LAB HEMATOLOGY METHOD 01/27/2025 3:21 PM EDT [facility] Lymphocytes Absolute 0.95(L) 1.20 - 3.90 10*3/uL LAB HEMATOLOGY METHOD 01/27/2025 3:21 PM EDT [facility] Monocytes Absolute 0.15(L) 0.30 - 0.90 10*3/uL LAB HEMATOLOGY METHOD 01/27/2025 3:21 PM EDT [facility] Eosinophils Absolute 0.01 0.00 - 0.50 10*3/uL LAB HEMATOLOGY METHOD 01/27/2025 3:21 PM EDT [facility] Basophils Absolute 0.00 0.00 - 0.10 10*3/uL LAB HEMATOLOGY METHOD 01/27/2025 3:21 PM EDT [facility] Immature Granulocytes Absolute 0.00 0.00 - 0.06 10*3/uL LAB HEMATOLOGY METHOD 01/27/2025 3:21 PM EDT [facility] Blood Blood sample taken from central line / Unknown (Port) Long-term Catheter / Unknown 01/27/2025 3:00 PM EDT 01/27/2025 3:12 PM EDT Narrative [facility] - 01/27/2025 3:21 PM EDT Therapeutic decision making should be based on absolute values, rather than percentages. us New Mckinney MD LAB BLOOD ORDERABLES Final Re sult [facility] [address] [place] [phone] * (ABNORMAL) Comprehensive Metabolic Panel, Plasma (01/27/2025 3:00 PM EDT) Only the most recent of2 resultswithin the time period is included. Glucose, Plasma 89 74 - 99 mg/dL 01/27/2025 4:26 PM EDT [facility] BUN, Plasma 22 8 - 23 mg/dL 01/27/2025 4:26 PM EDT [facility] Creatinine, Plasma 1.10 0.60 - 1.10 mg/dL 01/27/2025 4:26 PM EDT [facility] BUN/Creatinine Ratio 20 01/27/2025 4:26 PM EDT [facility] Sodium, Plasma 138 136 - 145 mmol/L 01/27/2025 4:26 PM EDT [facility] Potassium, Plasma 4.6 3.6 - 4.9 mmol/L 01/27/2025 4:26 PM EDT [facility] Chloride, Plasma 106 97 - 107 mmol/L 01/27/2025 4:26 PM EDT [facility] CO2, Plasma 22 22 - 29 mmol/L 01/27/2025 4:26 PM EDT [facility] Anion Gap 10 6 - 16 mmol/L 01/27/2025 4:26 PM EDT [facility] Total Calcium, Plasma 9.6 8.9 - 10.2 mg/dL 01/27/2025 4:26 PM EDT [facility] Total Protein 6.2(L) 6.3 - 7.9 g/dL 01/27/2025 4:26 PM EDT [facility] Albumin, Plasma 3.9 3.5 - 5.2 g/dL 01/27/2025 4:26 PM EDT [facility] AST, Plasma 33 10 - 35 U/L 01/27/2025 4:26 PM EDT [facility] ALT, Plasma 11 10 - 35 U/L 01/27/2025 4:26 PM EDT [facility] Alkaline Phosphatase, Plasma 43(L) 46 - 142 U/L 01/27/2025 4:26 PM EDT [facility] Total Bilirubin, Plasma 0.5 0.2 - 1.1 mg/dL 01/27/2025 4:26 PM EDT [facility] eGFRcr 52.8 mL/min/1.7 3m*2 01/27/2025 4:26 PM EDT [facility] Comment:Reported eGFRcr in m L/min/1.73m2 is based the CKD-EPI 2020 equation that does not use a race coefficient. Blood Blood sample taken from central line / Unknown (Port) Long-term Catheter / Unknown 01/27/2025 3:00 PM EDT 01/27/2025 3:54 PM EDT us New Mckinney MD LAB BLOOD ORDERABLES Final Re sult [facility] [address] [place] [address] * BIOPSY BONE MARROW (01/12/2025 10:00 AM EDT) Narrative Rebecca Barrientos PA - 01/12/2025 10:00 AM EDT Rebecca Barrientos PA 01/12/2025 12:20 PM Biopsy bone marrow Performed by: Rebecca Barrientos PA Authorized by: Rebecca Barrientos PA us Rebecca SUAREZ IN CLINIC/BEDSIDE ORDERABLE S Final Result * Chromosome Karyotype, Oncology (01/12/2025 9:55 AM EDT) Specimen Type Bone Marrow 01/20/2025 12:21 PM EDT [facility] Clinical Indication Myelodysplastic Syndrome 01/20/2025 12:21 PM EDT [facility] Specimen Adequacy Adequate 025 12:21 PM EDT [facility] Chromosome Analysis Result Giemsa-banded metaphase cells from unstimulated bone marrow cultures showed the following chromosome pattern: 43~44,X,-X,add(5)( q23),del(5)(q13q33 ),todd(7)ins?(7)(q1 1.2q11.2)t(7;12)(q 11.2;q13),-12,todd( 17)add(17)(p13.2)a dd(17)(q21)[16]/88 ,XX,idemx2[cp3]/46 ,XY[1] 01/20/2025 12:21 PM EDT [facility] Interpretation Abnormal female chromosome analysis. 95% of metaphase cells analyzed showed clonal abnormalities consistent with this patient's previous abnormal results (see [facility]-[id number]). Clinical correlation is recommended. Note: Per [employer] (CAP) requirement an additional karyotype was performed and charged due to the presence of clonal abnormalities. # cells counted = 20 # cells analyzed = 20 # cells karyotyped = 3 Band resolution: 400-450 01/20/2025 12:21 PM EDT [facility] Pathologist Signature Reviewed by: Corey Tejada 01/20/2025 12:21 PM EDT [facility] Bone Marrow Non-blood Collection / Unknown 01/12/2025 9:55 AM EDT 01/12/2025 12:37 PM EDT us New Mckinney MD LAB CYTOGENETICS ORDERABLES F inal Result [facility] [address] [place] [address] * Leukemia/Lymphoma - Immunophenotyping by Flow Cytometry [...] surface light chains 01/12/2025 4:19 PM EDT [facility] Disclaimer This test was developed and its performance characteristics determined by the Immuno-Molecular Pathology Laboratory at the [facility]. It has not been cleared [...] clinical laboratory testing. 01/12/2025 4:19 PM EDT [facility] Pathologist Signature Reviewed by: Asad Hartman MD 01/12/2025 4:19 PM EDT [facility] MRD Indicated Test Not Indicated 4:19 PM EDT [facility] Bone Marrow Specimen from bone marrow obtained by aspiration / Unknown Non-blood Collection / Unknown 01/12/2025 9:55 AM EDT 01/12/2025 1:48 PM EDT us New Mckinney MD LAB FLOW CYTOMETRY ORDERABLES Final Result [facility] [address] [place] [address] * Bone marrow exam (01/12/2025 9:55 AM EDT) Case Report Bone Marrow Case: [id number] Authorizing Provider: New Mckinney MD Collected: 01/12/2025 0955 Ordering Location: [facility] Hematology/BMT and Received: 01/12/2025 [facility] Cellular Therapy Program Pathologist: Asad Hartman MD Specimens: A) - Bone Marrow Aspirate, left B) - Bone Marrow Biopsy, left C) - Peripheral Blood for Bone Marrow 5:16 PM EDT [facility] Cytogenetics Report, Addendum Chromosome Analysis Result: Giemsa-banded metaphase cells from unstimulated bone marrow cultures showed the following chromosome pattern: 43~44,X,-X,add(5)( q23),del(5)(q13q33 ),todd(7)ins?(7)(q1 1.2q11.2)t(7;12)(q 11.2;q13),-12,todd( 17)add(17)(p13.2)a dd(17)(q21)[16]/88 ,XX,idemx2[cp3]/46 ,XY[1] Interpretation: Abnormal female chromosome analysis. 95% of metaphase cells analyzed showed clonal abnormalities consistent with this patient's previous abnormal results (see [facility]-[id number]). 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 5:16 PM EDT [facility] at 0941 EDT Comment The discrepancy between blasts percentage by morphologic assessment and flow cytometric analysis is due to erythroid precursors that constitute majority of bone marrow cellularity and are removed by flow cytometry. 5:16 PM EDT [facility] Clinical Information MDS 01/14 5:16 PM EDT [facility] CBC and Differential [...] cells. Platelets are decreased. 5:16 PM EDT [facility] Bone Marrow Differential BONE MARROW DIFFERENTIAL: 300 cells Normal Patient Neutrophils 15-50 12 Metamyelocytes 4-19 0 Myelocytes 1-18 1 Promyelocytes 1-8 0 Blasts 0-2 7 Monocytes 0-5 7 Erythroid 16-38 61 Lymphocytes 3-24 7 Eosinophils 0-6 3 Basophils 0-2 0 Plasma cells 0-4 2 Other 5:16 PM EDT [facility] Aspirate Smear [...] 50% of erythroid precursors. 5:16 PM EDT [facility] Core Biopsy CELLULARITY: Variably [...] Bony trabeculae are normal. 5:16 PM EDT [facility] Special and Immunohistochemical Stains [...] the [facility], [address] [place] [address]. All tests reported here, except those addressing [...] negativity on decalcified specimens. 5:16 PM EDT [facility] Flow Cytometry Interpretation Flow cytometric analysis demonstrates approximately 27% population of myeloid blasts in this patient with history of myelodysplastic syndrome; expressing CD34, CD117, variable CD33, partial CD56, variable HLA-DR, partial dim CD7, CD38 and dim CD45 ([id number]). 5:16 PM EDT [facility] Gross Description B. LEFT A single specimen is received in formalin labeled bone marrow biopsy left posterior iliac crest and consists of 1 piece(s) of red/white tissue measuring 0.9 cm in length 0.2 cm in diameter. The specimen is submitted in to Histology for decalcification and routine processing. Cold Time: <1m 5:16 PM T [facility] Note: A resident was involved in the service. I attest I examined the relevant preparations for the specimens and confirmed the diagnosis or interpretation. 5:16 PM T [facility] Bone Marrow Peripheral [...] PATHOLOGY ORDERABLES Edit ed Result - Final [facility] [address] [place] [address] * Hepatitis C Antibody w/Reflex to HCV Quant PCR (01/07/2024 8:42 AM EDT) Hepatitis C Antibody Negative Negative 01/07/2024 10:13 AM EDT [facility] Blood Venous blood specimen / Unknown Venipuncture / Unknown 01/07/2024 8:42 AM EDT 01/07/2024 9:25 AM EDT New Mckinney MD LAB BLOOD ORDERABLES Final Re sult [facility] [address] [place] [address] from Last 3 Months or Most Recently Relevant to Health Maintenance Insurance [facility] Care Teams Public Welfare Worker Relationship Specialty Start Date End Date Jevon Vazquez MD [address] [place] [address] #1 #1 Julien [place]SEP [id number] PCP - General 03/23/22
[2025-02-11 09:47] VITALS: BMI 20.9
[2025-02-11 09:52] LABS: Hematocrit 24.8 % (37.0-47.0); Hemoglobin 8.2 g/dL (12.2-16.2); Immature Granulocytes % 0 %; Mean Corpuscular HGB Conc 33.1 g/dL (31.8-35.4); Mean Corpuscular Hemoglobin 29.3 pg (27.0-31.2); Mean Corpuscular Volume 88.6 fl (81-99); Nucleated Red Blood Cells % 0 %; Red Blood Count 2.80 M/mm3 (4.20-5.40); Red Cell Distribution Width-SD 54.0 fL
[2025-02-11 10:01] LABS: Alanine Aminotransferase 16 U/L (12-78); Albumin Level 2.9 g/dl (3.5-5.0); Albumin/Globulin Ratio 0.8 (1.1-1.8); Alkaline Phosphatase 52 U/L (38-126); Anion Gap 11.7 mEq/L (5-15); Aspartate Amino Transferase 30 U/L (14-36); Bilirubin,Total 0.9 mg/dl (0.2-1.3); Blood Urea Nitrogen 21 mg/dl (7-17); Calcium 9.3 mg/dl (8.4-10.2); Carbon Dioxide 23 mmol/L (22.0-30.0); Chloride 103 mmol/L (98-107); Creatinine Clearance Estimated 43 mL/min (50-200); Creatinine,Serum 1.00 mg/dl (0.52-1.04); Estimated Glomerular Filt Rate 54 ml/min (>60); GFR (African American) 66 ML/MIN (>60); Globulin 3.6 g/dL (1.3-3.2); Glucose 157 mg/dl (74-100); Potassium 3.7 mmoL/L (3.5-5.1); Sodium 134 mmol/L (136-145); Total Protein,Serum 6.5 g/dl (6.3-8.2)
[2025-02-11 10:19] LABS: Platelet Count 11 K/mm3 (142-424); White Blood Count 0.5 K/mm3 (4.8-10.8)
[2025-02-11 11:02] LABS: RBC Morphology Normal; Total Cells Counted 25
== END 2025-02-11 23:59 | disposition home or self-care (01) ==
LOC: INF 09:04
PROVIDERS: PCP Family Medicine; Visit Provider Internal Medicine Medical Oncology
DX: C92.00 Acute myeloblastic leukemia, not having achieved remission (principal)
CPT/HCPCS: 36591; 80053; 85007; 85025; J1642

== ENCOUNTER 2025-02-13 08:56 | Outpatient (CLI) | payer MEDICARE, BC, SELFPAY ==
--- OUTSIDE RECORDS SUMMARY | 2025-01-12 09:30 | XMS_ITS | Encounter Summary ---
Author Organization Healthcare Address [address] [place] [address] Care Team Providers Care Python Programmer Name Role Phone Jevon Vazquez MD Primary Care Provider [phone] Reason for Visit * Reason Comments Labs Encounter Details Date Type Department Care Team ([facility] Contact Info) Description 01/12/2025 9:30 AM EDT Clinical Support [facility] Hematology/BMT and Cellular Therapy Program [address] [phone] Social History Tobacco Use Types Packs/Day Years [...] Team ([facility] Contact Info) Description 03/03/2025 1:00 PM EST Clinical Support [facility] Hematology/BMT and Cellular Therapy Program [address] [phone] 03/03/2025 1:30 PM EST Office Visit [facility] Hematology/BMT and Cellular Therapy Program [address] [phone] Zonia Hoffman, DESK CLERK 800 [facility] [address] [place] [phone] documented as of this encounter Visit Diagnoses Not on filedocumented in this encounter Additional Health Concerns Assessment Noted Time A fall risk assessment has been complete d for the patient 09/30/2024 9:33 AM EDT A Body Mass Index follow-up plan has been documented for the patient 05/28/2024 1:52 PM EST documented as of this encounter Care Teams Python Programmer Relationship Specialty Start Date End Date Jevon Vazquez MD [address] [place] [address] #1 #1 [place] [address] PCP - General 03/23/22 documented as of this encounter
--- OUTSIDE RECORDS SUMMARY | 2025-01-12 10:00 | XMS_ITS | Encounter Summary ---
Author Organization [facility] Address [address] [place] [address] Care Team Providers Care Director Distribution Name Role Phone Jevon Vazquez MD Primary Care Provider [phone] Reason for Visit * Genetic Testing (Routine) - Authorized Specialty Diagnoses / Procedures Referred By Rebecca barron Referred To Contact Lab Diagnoses Myelodysplastic syndrome (CMS/HCC) Procedures Leukemia/Lymphoma - Immunophenotyping by Flow Cytometry New Mckinney MD 800 [facility] Cancer [address] [address] Phone: tel: fax: Referral ID Status Reason Start Date Expiration Date V isits Requested Visits Authorized [id number] Authorized 12/29/2024 06/30/2026 1 1 Encounter Details Date Type Department Care Team (Latest Contact Info) Description 01/12/2025 10:00 AM EDT Procedure Visit [facility] Hematology/BMT and Cellular Therapy Program [address] [address] Rebecca Barrientos PA 800 [facility] Cancer [address] [address] Myelodysplastic syndrome (CMS/HCC); Acute myeloid [...] CELLULAR THERAPY PROGRAM 800 [facility] [phone] / documented in this encounter Plan of Treatment Upcoming Encounters Date Type Department Care Team ([facility] st Contact Info) Description 03/03/2025 1:00 PM EST Clinical Support [facility] Hematology/BMT and Cellular Therapy Program [address] [address] 03/03/2025 1:30 PM EST Office [address] [facility] Hematology/BMT and Cellular Therapy Program [address] [phone] Zonia Hoffman, RODDY 800 [facility] [address] [place] [phone] documented as of this encounter Procedures Procedure [...] Type Bone Marrow 01/20/2025 12:21 PM EDT [facility] Clinical Indication Myelodysplastic Syndrome 01/20/2025 12:21 PM EDT [facility] Specimen Adequacy Adequate 025 12:21 PM EDT [facility] Chromosome Analysis Result Giemsa-banded metaphase cells from unstimulated bone marrow cultures showed the following chromosome pattern: 43~44,X,-X,add(5)( q23),del(5)(q13q33 ),todd(7)ins?(7)(q1 1.2q11.2)t(7;12)(q 11.2;q13),-12,todd( 17)add(17)(p13.2)a dd(17)(q21)[16]/88 ,XX,idemx2[cp3]/46 ,XY[1] 01/20/2025 12:21 PM EDT [facility] Interpretation Abnormal female chromosome analysis. 95% of metaphase cells analyzed showed clonal abnormalities consistent with this patient's previous abnormal results (see [id number]). Clinical correlation is recommended. Note: Per [employer] (CAP) requirement an additional karyotype was performed and charged due to the presence of clonal abnormalities. # cells counted = 20 # cells analyzed = 20 # cells karyotyped = 3 Band resolution: 400-450 01/20/2025 12:21 PM EDT [facility] Pathologist Signature Reviewed by: Corey Tejada 01/20/2025 12:21 PM EDT [facility] Bone Marrow Non-blood Collection / Unknown 01/12/2025 9:55 AM EDT 01/12/2025 12:37 PM EDT us New Mckinney MD LAB CYTOGENETICS ORDERABLES F inal Result [facility] [address] [place] [address] * Leukemia/Lymphoma - Immunophenotyping by Flow Cytometry (01/12/2025 9:55 AM EDT) Clinical Indication MDS 01/12/2025 4:19 PM EDT [facility] Flow Cytometry Interpretation APPROXIMATELY 27% MYELOID BLASTS EXPRESSING CD34, CD117, VARIABLE CD33, PARTIAL CD56, VARIABLE HLA-DR, PARTIAL DIM CD7, CD38 AND DIM CD45, SEE COMMENT, BBONE MARROW ASPIRATE. 01/12/2025 4:19 PM EDT [facility] Comments Specimen viability is [...] chains 01/12/2025 4:[address] [facility] Disclaimer This test was developed and its performance characteristics determined by the Immuno-Molecular Pathology Laboratory at the [facility]. It has not been cleared [...] testing. 01/12/2025 4:[address] [facility] Pathologist Signature Reviewed by: Asad Hartman MD 01/12/2025 4:19 PM EDT [facility] MRD Indicated Test Not Indicated 4:[address] [facility] Bone Marrow Specimen from bone marrow obtained by aspiration / Unknown Non-blood Collection / Unknown 01/12/2025 9:55 AM EDT 01/12/2025 1:48 PM EDT us New Mckinney MD LAB FLOW CYTOMETRY ORDERABLES Final Result [facility] [address] [place] [address] * Bone marrow exam (01/12/2025 9:55 AM EDT) Case Report Bone Marrow Case: [id number] Authorizing Provider: New Mckinney MD Collected: 01/12/2025 0955 Ordering Location: [facility] Hematology/BMT and Received: 01/12/2025 1143 Cellular Therapy Program Pathologist: Asad Hartman MD Specimens: A) - Bone Marrow Aspirate, left B) - Bone Marrow Biopsy, left C) - Peripheral Blood for Bone Marrow 5:16 PM EDT [facility] Cytogenetics Report, Addendum Chromosome Analysis Result: Giemsa-banded metaphase cells from unstimulated bone marrow cultures showed the following chromosome pattern: 43~44,X,-X,add(5)( q23),del(5)(q13q33 ),todd(7)ins?(7)(q1 1.2q11.2)t(7;12)(q 11.2;q13),-12,todd( 17)add(17)(p13.2)a dd(17)(q21)[16]/88 ,XX,idemx2[cp3]/46 ,XY[1] Interpretation: Abnormal female chromosome analysis. 95% of metaphase cells analyzed showed clonal abnormalities consistent with this patient's previous abnormal results (see [facility]-[id number]). 5:16 PM EDT [facility] Addendum electronically signed by Asad Hartman MD on 01/23/2025 at 1716 EDT Final Diagnosis PERIPHERAL BLOOD AND BONE MARROW, LEFT POSTERIOR ILIAC CREST, (PERIPHERAL SMEAR, ASPIRATE SMEAR, AND CORE BIOPSY): - HYPOCELLULAR BONE MARROW WITH MARKEDLY DECREASED MEGAKARYOCYTES, DECREASED MATURING GRANULOPOIESIS, APPROXIMATELY 7-10% VARIABLY DISTRIBUTED BLASTS AND MORE THAN 50% RING SIDEROBLASTS, SEE COMMENT. 5:16 PM EDT [facility] at 0941 EDT Comment The discrepancy between blasts percentage by morphologic assessment and flow cytometric analysis is due to erythroid precursors that constitute majority of bone marrow cellularity and are removed by flow cytometry. 5:16 PM EDT [facility] Clinical Information MDS 01/14 5:16 PM EDT [facility] CBC and Differential PERIPHERAL [...] cells. Platelets are decreased. 5:16 PM EDT [facility] Bone Marrow Differential BONE MARROW DIFFERENTIAL: 300 cells Normal Patient Neutrophils 15-50 12 Metamyelocytes 4-19 0 Myelocytes 1-18 1 Promyelocytes 1-8 0 Blasts 0-2 7 Monocytes 0-5 7 Erythroid 16-38 61 Lymphocytes 3-24 7 Eosinophils 0-6 3 Basophils 0-2 0 Plasma cells 0-4 2 Other 5:16 PM T [facility] Aspirate Smear The bone [...] 50% of erythroid precursors. 5:16 PM T [facility] Core Biopsy CELLULARITY: Variably [...] Bony trabeculae are normal. 5:16 PM T [facility] Special and Immunohistochemical Stains [...] the [facility], [address] [place] [address]. All tests reported here, except those addressing [...] negativity on decalcified specimens. 5:16 PM T [facility] Flow Cytometry Interpretation Flow cytometric analysis demonstrates approximately 27% population of myeloid blasts in this patient with history of myelodysplastic syndrome; expressing CD34, CD117, variable CD33, partial CD56, variable HLA-DR, partial dim CD7, CD38 and dim CD45 ([id number]). 5:16 PM T [facility] Gross Description B. LEFT A single specimen is received in formalin labeled bone marrow biopsy left posterior iliac crest and consists of 1 piece(s) of red/white tissue measuring 0.9 cm in length 0.2 cm in diameter. The specimen is submitted in to Histology for decalcification and routine processing. Cold Time: <1m 5:16 PM [facility] Note: A resident was involved in the service. I attest I examined the relevant preparations for the specimens and confirmed the diagnosis or interpretation. 5:16 PM T [facility] Bone Marrow Peripheral blood [...] PATHOLOGY ORDERABLES Edit ed Result - Final [facility] [address] [place] [address] * (ABNORMAL) CBC and Differential (01/12/2025 9:15 AM EDT) WBC Count 1.31(L) 3.70 - 10.30 10*3/uL LAB HEMATOLOGY METHOD 01/12/2025 9:58 AM EDT [facility] RBC Count 2.70(L) 3.90 - 5.20 10*6/uL LAB HEMATOLOGY METHOD 01/12/2025 9:58 AM EDT [facility] HGB 8.4(L) 11.2 - 15.7 g/dL LAB HEMATOLOGY METHOD 01/12/2025 9:58 AM EDT [facility] HCT 25.0(L) 34.0 - 45.0 % LAB HEMATOLOGY METHOD 01/12/2025 9:58 AM EDT [facility] Platelet Count 31(L) 155 - 369 10*3/uL LAB HEMATOLOGY METHOD 01/12/2025 9:58 AM EDT [facility] MCV 93 79 - 98 fL LAB HEMATOLOGY METHOD 01/12/2025 9:58 AM EDT [facility] MCH 31.1 26.0 - 32.0 pg LAB HEMATOLOGY METHOD 01/12/2025 9:58 AM EDT [facility] MCHC 33.6 30.7 - 35.5 g/dL LAB HEMATOLOGY METHOD 01/12/2025 9:58 AM EDT [facility] RDW 20.0(H) 11.5 - 14.5 % LAB HEMATOLOGY METHOD 01/12/2025 9:58 AM EDT [facility] MPV 8.8 8.8 - 12.5 fL LAB HEMATOLOGY METHOD 01/12/2025 9:58 AM EDT [facility] nRBC 3.1(H) <=0.0 per 100 WBCs LAB HEMATOLOGY METHOD 01/12/2025 9:58 AM EDT [facility] Differential Type Automated LAB HEMATOLOGY METHOD 01/12/2025 9:58 AM EDT [facility] Neutrophils % 19 % LAB HEMATOLOGY METHOD 01/12/2025 9:58 AM EDT [facility] Lymphocytes % 64 % LAB HEMATOLOGY METHOD 01/12/2025 9:58 AM EDT [facility] Monocytes % 15 % LAB HEMATOLOGY METHOD 01/12/2025 9:58 AM EDT [facility] Eosinophils % 2 % LAB HEMATOLOGY METHOD 01/12/2025 9:58 AM EDT [facility] Basophils % 0 % LAB HEMATOLOGY METHOD 01/12/2025 9:58 AM EDT [facility] Immature Granulocytes % 0 % LAB HEMATOLOGY METHOD 01/12/2025 9:58 AM EDT [facility] Neutrophils Absolute 0.25(LL) 1.60 - 6.10 10*3/uL LAB HEMATOLOGY METHOD 01/12/2025 9:58 AM EDT [facility] Lymphocytes Absolute 0.84(L) 1.20 - 3.90 10*3/uL LAB HEMATOLOGY METHOD 01/12/2025 9:58 AM EDT [facility] Monocytes Absolute 0.20(L) 0.30 - 0.90 10*3/uL LAB HEMATOLOGY METHOD 01/12/2025 9:58 AM EDT [facility] Eosinophils Absolute 0.02 0.00 - 0.50 10*3/uL LAB HEMATOLOGY METHOD 01/12/2025 9:58 AM EDT [facility] Basophils Absolute 0.00 0.00 - 0.10 10*3/uL LAB HEMATOLOGY METHOD 01/12/2025 9:58 AM EDT [facility] Immature Granulocytes Absolute 0.00 0.00 - 0.06 10*3/uL LAB HEMATOLOGY METHOD 01/12/2025 9:58 AM EDT [facility] Blood Blood sample taken from central line / Unknown (Port) Long-term Catheter / Unknown 01/12/2025 9:15 AM EDT 01/12/2025 9:31 AM EDT [facility] - 01/12/2025 9:58 AM EDT Therapeutic decision making should be based on absolute values, rather than percentages. us New Mckinney MD LAB BLOOD ORDERABLES Final Re sult [facility] [address] [place] [address] * (ABNORMAL) Comprehensive Metabolic Panel, Plasma (01/12/2025 9:15 AM EDT) Glucose, Plasma 121(H) 74 - 99 mg/dL 01/12/2025 10:02 AM EDT [facility] BUN, Plasma 24(H) 8 - 23 mg/dL 01/12/2025 10:02 AM EDT [facility] Creatinine, Plasma 1.19(H) 0.60 - 1.10 mg/dL 01/12/2025 10:02 AM EDT [facility] BUN/Creatinine Ratio 20 01/12/2025 10:02 AM EDT [facility] Sodium, Plasma 138 136 - 145 mmol/L 01/12/2025 10:02 AM EDT [facility] Potassium, Plasma 3.9 3.6 - 4.9 mmol/L 01/12/2025 10:02 AM EDT [facility] Chloride, Plasma 105 97 - 107 mmol/L 01/12/2025 10:02 AM EDT [facility] CO2, Plasma 21(L) 22 - 29 mmol/L 01/12/2025 10:02 AM EDT [facility] Anion Gap 12 6 - 16 mmol/L 01/12/2025 10:02 AM EDT [facility] Total Calcium, Plasma 9.7 8.9 - 10.2 mg/dL 01/12/2025 10:02 AM EDT [facility] Total Protein 6.1(L) 6.3 - 7.9 g/dL 01/12/2025 10:02 AM EDT [facility] Albumin, Plasma 3.9 3.5 - 5.2 g/dL 01/12/2025 10:02 AM EDT [facility] AST, Plasma 28 10 - 35 U/L 01/12/2025 10:02 AM EDT [facility] ALT, Plasma 12 10 - 35 U/L 01/12/2025 10:02 AM EDT [facility] Alkaline Phosphatase, Plasma 43(L) 46 - 142 U/L 01/12/2025 10:02 AM EDT [facility] Total Bilirubin, Plasma 0.5 0.2 - 1.1 mg/dL 01/12/2025 10:02 AM EDT [facility] eGFRcr 48.1 mL/min/1.7 3m*2 01/12/2025 10:02 AM EDT [facility] Comment:Reported eGFRcr in m L/min/1.73m2 is based the CKD-EPI 2020 equation that does not use a race coefficient. Blood Blood sample taken from central line / Unknown (Port) Long-term Catheter / Unknown 01/12/2025 9:15 AM EDT 01/12/2025 9:33 AM EDT us New Mckinney MD LAB BLOOD ORDERABLES Final Re sult [facility] [address] [place] [address] documented in this encounter Visit Diagnoses Diagnosis [...] as of this encounter Care Teams Director Distribution Relationship Specialty Start Date End Date Jevon Vazquez MD [address] [place] [address] #1 #1 [place] [address] PCP - General 03/23/22 documented as of this encounter
--- OUTSIDE RECORDS SUMMARY | 2025-01-27 15:00 | XMS_ITS | Encounter Summary ---
Author Organization Healthcare Address [address] [place] [address] Care Team Providers Care Stacker Operator Name Role Phone Jevon Vazquez MD Primary Care Provider [phone] Reason for Visit * Reason Comments Labs Port Flush Encounter Details Date Type Department Care Team ([facility] Contact Info) Description 01/27/2025 3:00 PM EDT Clinical Support [facility] Hematology/BMT and Cellular Therapy Program [address] [place] [phone] Oscar Cortez, RN Social History Tobacco Use [...] Upcoming Encounters Date Type Department Care Team ([facility] Contact Info) Description 03/03/2025 1:00 PM EST Clinical Support [facility] Hematology/BMT and Cellular Therapy Program [address] [phone] 03/03/2025 1:30 PM EST Office Visit [facility]ology/BMT and Cellular Therapy Program [address] [phone] Zonia Hoffman, AMMONIA REFRIGERATION WORKER 800 [facility] [address] [place] [phone] documented as of this encounter Visit Diagnoses Not on filedocumented in this encounter Additional Health Concerns Assessment Noted Time A fall risk assessment has been complete d for the patient 01/27/2025 3:25 PM EDT A Body Mass Index follow-up plan has been documented for the patient 05/28/2024 1:52 PM EST documented as of this encounter Care Teams Stacker Operator Relationship Specialty Start Date End Date Jevon Vazquez MD [address] [place] [address] #1 #1 [place] [phone] PCP - General 03/23/22 documented as of this encounter
--- OUTSIDE RECORDS SUMMARY | 2025-01-27 15:30 | XMS_ITS | Encounter Summary ---
Author Organization [facility] Address 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) New Mckinney MD [address] [address] Phone: tel: fax: Referral ID Status Reason Start Date Expiration Date V isits Requested Visits Authorized [id number] Authorized 04/16/2024 01/27/2026 1 1 * Consultation (Urgent) - Authorized Specialty Diagnoses / Procedures Referred By Contac t Referred To Contact Medical Oncology Diagnoses 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 [address] [place] [address] Phone: tel: Referral ID Status Reason Start Date Expiration Date Visits Requested Visits Authorized [id number] Authorized Specialty Services Required 07/29/2026 1 1 Encounter Details Date Type Department Care Team (Latest Contact Info) Description 01/27/2025 3:30 PM EDT Office Visit [facility] CC Hematology/BMT and Cellular Therapy Program [address] [phone] New Mckinney MD 800 [facility] [address] [place] [phone] Encounter for antineoplastic immunotherapy (Primary Dx); [...] interphase cells examined show a deletion of [id number]. Next generation sequencing: Abnormal: TP53 (c.814G>A; p.Dpf637Tti) frequency 45%, DMNT3A (c.1522delC; p.[id number]) frequency 48%, RUNX1 (c.336_338delGCC; p.Hxd001kcn) frequency 35% Azacitidine + Venetoclax Cycle 1: [...] 5x/week monthly. - Will send referrals to [facility] and [place] for clinical trial evaluations. - Continue local [...] Gerardo Pandey D.O. Hematology and Oncology Fellow [facility] Patient care and management discussed with [...] understand that therapeutic options are limited, and qzhlt-so-qqdk discussions remain essential moving forward. We will start oral decitabine and refer to [place] and [facility] for clinical trial evaluations * Progress Notes [...] Cycle 2: 03/22/24 Assessment/Plan: Rx sent to [facility]. Refills due 02/2025. Patient will return [...] Upcoming Encounters Date Type Department Care Team ([facility] st Contact Info) Description 03/03/2025 1:00 PM EST Clinical Support [facility] Hematology/BMT and Cellular Therapy Program [address] [phone] 03/03/2025 1:30 PM EST Office Visit [facility] Hematology/BMT and Cellular Therapy Program [address] [phone] Zonia Hoffman, FISH SKINNING MACHINE FEEDER 800 [facility] [address] [place] [phone] Scheduled Referrals Name Type Priority Associated Diagnoses [...] - 99 mg/dL 01/27/2025 4:26 PM EDT [facility] BUN, Plasma 22 8 - 23 mg/dL 01/27/2025 4:26 PM EDT [facility] Creatinine, Plasma 1.10 0.60 - 1.10 mg/dL 01/27/2025 4:26 PM EDT [facility] BUN/Creatinine Ratio 20 01/27/2025 4:26 PM EDT [facility] Sodium, Plasma 138 136 - 145 mmol/L 01/27/2025 4:26 PM EDT [facility] Potassium, Plasma 4.6 3.6 - 4.9 mmol/L 01/27/2025 4:26 PM EDT [facility] Chloride, Plasma 106 97 - 107 mmol/L 01/27/2025 4:26 PM EDT [facility] CO2, Plasma 22 22 - 29 mmol/L 01/27/2025 4:26 PM EDT [facility] Anion Gap 10 6 - 16 mmol/L 01/27/2025 4:26 PM EDT [facility] Total Calcium, Plasma 9.6 8.9 - 10.2 mg/dL 01/27/2025 4:26 PM EDT [facility] Total Protein 6.2(L) 6.3 - 7.9 g/dL 01/27/2025 4:26 PM EDT [facility] Albumin, Plasma 3.9 3.5 - 5.2 g/dL 01/27/2025 4:26 PM EDT [facility] AST, Plasma 33 10 - 35 U/L 01/27/2025 4:26 PM EDT [facility] ALT, Plasma 11 10 - 35 U/L 01/27/2025 4:26 PM EDT [facility] Alkaline Phosphatase, Plasma 43(L) 46 - 142 U/L 01/27/2025 4:26 PM EDT [facility] Total Bilirubin, Plasma 0.5 0.2 - 1.1 mg/dL 01/27/2025 4:26 PM EDT [facility] eGFRcr 52.8 mL/min/1.7 3m*2 01/27/2025 4:26 PM EDT [facility] Comment:Reported eGFRcr in m L/min/1.73m2 is based the CKD-EPI 2020 equation that does not use a race coefficient. Blood Blood sample taken from central line / Unknown (Port) Long-term Catheter / Unknown 01/27/2025 3:00 PM EDT 01/27/2025 3:54 PM EDT us New Mckinney MD LAB BLOOD ORDERABLES Final Re sult [facility] 800 [place] [address] * (ABNORMAL) CBC and Differential (01/27/2025 3:00 PM EDT) WBC Count 1.22(L) 3.70 - 10.30 10*3/uL LAB HEMATOLOGY METHOD 01/27/2025 3:21 PM EDT [facility] RBC Count 2.90(L) 3.90 - 5.20 10*6/uL LAB HEMATOLOGY METHOD 01/27/2025 3:21 PM EDT [facility] HGB 8.9(L) 11.2 - 15.7 g/dL LAB HEMATOLOGY METHOD 01/27/2025 3:21 PM EDT [facility] HCT 26.3(L) 34.0 - 45.0 % LAB HEMATOLOGY METHOD 01/27/2025 3:21 PM EDT [facility] Platelet Count 23(L) 155 - 369 10*3/uL LAB HEMATOLOGY METHOD 01/27/2025 3:21 PM EDT [facility] MCV 91 79 - 98 fL LAB HEMATOLOGY METHOD 01/27/2025 3:21 PM EDT [facility] MCH 30.7 26.0 - 32.0 pg LAB HEMATOLOGY METHOD 01/27/2025 3:21 PM EDT [facility] MCHC 33.8 30.7 - 35.5 g/dL LAB HEMATOLOGY METHOD 01/27/2025 3:21 PM EDT [facility] RDW 17.7(H) 11.5 - 14.5 % LAB HEMATOLOGY METHOD 01/27/2025 3:21 PM EDT [facility] MPV 9.0 8.8 - 12.5 fL LAB HEMATOLOGY METHOD 01/27/2025 3:21 PM EDT [facility] nRBC 2.5(H) <=0.0 per 100 WBCs LAB HEMATOLOGY METHOD 01/27/2025 3:21 PM EDT [facility] Differential Type Automated LAB HEMATOLOGY METHOD 01/27/2025 3:21 PM EDT [facility] Neutrophils % 9 % LAB HEMATOLOGY METHOD 01/27/2025 3:21 PM EDT [facility] Lymphocytes % 78 % LAB HEMATOLOGY METHOD 01/27/2025 3:21 PM EDT [facility] Monocytes % 12 % LAB HEMATOLOGY METHOD 01/27/2025 3:21 PM EDT [facility] Eosinophils % 1 % LAB HEMATOLOGY METHOD 01/27/2025 3:21 PM EDT [facility] Basophils % 0 % LAB HEMATOLOGY METHOD 01/27/2025 3:21 PM EDT [facility] Immature Granulocytes % 0 % LAB HEMATOLOGY METHOD 01/27/2025 3:21 PM EDT [facility] Neutrophils Absolute 0.11(LL) 1.60 - 6.10 10*3/uL LAB HEMATOLOGY METHOD 01/27/2025 3:21 PM EDT [facility] Lymphocytes Absolute 0.95(L) 1.20 - 3.90 10*3/uL LAB HEMATOLOGY METHOD 01/27/2025 3:21 PM EDT [facility] Monocytes Absolute 0.15(L) 0.30 - 0.90 10*3/uL LAB HEMATOLOGY METHOD 01/27/2025 3:21 PM EDT [facility] Eosinophils Absolute 0.01 0.00 - 0.50 10*3/uL LAB HEMATOLOGY METHOD 01/27/2025 3:21 PM EDT [facility] Basophils Absolute 0.00 0.00 - 0.10 10*3/uL LAB HEMATOLOGY METHOD 01/27/2025 3:21 PM EDT [facility] Immature Granulocytes Absolute 0.00 0.00 - [...] ORDERABLES Final Re sult Performing Organization Address City/State/[facility] Co de Phone Number HEALTHCARE LAB [address] [place] [address] documented in this encounter Visit Diagnoses Diagnosis [...] as of this encounter Care Teams Beater Dumper Relationship Specialty Start Date End Date Jevon Vazquez MD [address] [place] [address] #1 #1 Julien JOSEP [id number] PCP - General 03/23/22 documented as of this encounter
[2025-02-13] VITALS (20 sets, daily range): BP systolic 100–130; BP diastolic 43–55; PULSE 72–85; RESP 15–17; TEMP 35.9–36.5; O2SAT 98–100; BMI 20.9
--- OUTSIDE RECORDS SUMMARY | 2025-02-13 09:01 | XMS_ITS | Encounter Summary ---
Author Organization [facility] Address [address] [place] [address] Care Team Providers Care Ship Surveyor Name Role Phone Jevon Vazquez MD Primary Care Provider [phone] Reason for Visit * Reason Comments Med Refill Encounter Details Date Type Department Care Team ([facility] Contact Info) Description 01/30/2024 Refill [facility] Hematology/BMT and Cellular Therapy Program [address] [phone] New Mckinney MD [address] [facility] [address] [place] [phone] Social History Tobacco Use Types Packs/Day Years [...] Hematology/BMT and Cellular Therapy Program [address] [phone] 03/03/2025 1:30 PM EST Office Visit [facility] Hematology/BMT and Cellular Therapy Program [address] [phone] Zonia Hoffman, BINDERY CHIEF 800 [facility] [address] [place] [address] documented as of this encounter Visit Diagnoses Not on filedocumented in this encounter Additional Health Concerns Assessment Noted Time A fall risk assessment has been complete d for the patient 01/11/2024 9:16 AM EDT A Body Mass Index follow-up plan has been documented for the patient 01/21/2024 6:16 AM EDT documented as of this encounter Care Teams Ship Surveyor Relationship Specialty Start Date End Date Jevon Vazquez MD [address] [place] [address] #1 #1 [place] [phone] PCP - General 03/23/22 documented as of this encounter
--- OUTSIDE RECORDS SUMMARY | 2025-02-13 09:01 | XMS_ITS | Encounter Summary ---
Author Organization [facility] Address [address] [place] [address] Care Team Providers Care Poultry Farm Laborer Name Role Phone Jevon Vazquez MD Primary Care Provider [phone] Encounter Details Date Type Department Care Team [...] Hematology/BMT and Cellular Therapy Program [address] [phone] 03/03/2025 1:30 PM EST Office Visit [facility] Hematology/BMT and Cellular Therapy Program [address] [phone] Zonia Hoffman, QUALITY IMPROVEMENT ANALYST 800 [facility] [address] [place] [phone] documented as of this encounter Visit Diagnoses Not on filedocumented in this encounter Additional Health Concerns Assessment Noted Time A fall risk assessment has been complete d for the patient 09/30/2024 9:33 AM EDT A Body Mass Index follow-up plan has been documented for the patient 05/28/2024 1:52 PM EST documented as of this encounter Care Teams Poultry Farm Laborer Relationship Specialty Start Date End Date Jevon Vazquez MD [address] [place] [address] #1 #1 [place] [id number] PCP - General 03/23/22 documented as of this encounter
--- OUTSIDE RECORDS SUMMARY | 2025-02-13 09:01 | XMS_ITS | Encounter Summary ---
Author Organization [facility] Address [address] [place] [address] Care Team Providers Care Rolfer Name Role Phone Jevon Vazquez MD Primary Care Provider [phone] Reason for Visit * Reason Comments Med Refill Encounter Details Date Type Department Care Team ([facility] Contact Info) Description 02/02/2025 Refill [facility] Hematology/BMT and Cellular Therapy Program [address] [phone] Zonia Hoffman, SKIP TENDER 800 [facility] [address] [place] [phone] Social History Tobacco Use Types Packs/Day Years [...] ([facility] Contact Info) Description 03/03/2025 1:00 PM EST Clinical Support [facility] Hematology/BMT and Cellular Therapy Program [address] [phone] 03/03/2025 1:30 PM EST Office Visit [facility] Hematology/BMT and Cellular Therapy Program [address] [phone] Zonia Hoffman, SKIP TENDER 800 [facility] [address] [place] [address] documented as of this encounter Visit Diagnoses Not on filedocumented in this encounter Additional Health Concerns Assessment Noted Time A fall risk assessment has been complete d for the patient 01/27/2025 3:25 PM EDT A Body Mass Index follow-up plan has been documented for the patient 05/28/2024 1:52 PM EST documented as of this encounter Care Teams Rolfer Relationship Specialty Start Date End Date Jevon Vazquez MD [address] [place] [address] #1 #1 [place] [address] PCP - General 03/23/22 documented as of this encounter
--- OUTSIDE RECORDS SUMMARY | 2025-02-13 09:01 | XMS_ITS | Encounter Summary ---
Author Organization Healthcare Address [address] [place] [address] Care Team Providers Care Organic Gardening Teacher Name Role Phone Jevon Vazquez MD Primary Care Provider [phone] Encounter Details Date Type Department Care Team [...] Cellular Therapy Program [address] [phone] 03/03/2025 1:30 PM EST Office Visit [facility] Hematology/BMT and Cellular Therapy Program [address] [phone] Zonia Hoffman, AIRCRAFT SEAT UPHOLSTERER 800 [facility] [address] [place] [phone] documented as of this encounter Visit Diagnoses Not on filedocumented in this encounter Additional Health Concerns Assessment Noted Time A fall risk assessment has been complete d for the patient 09/30/2024 9:33 AM EDT A Body Mass Index follow-up plan has been documented for the patient 05/28/2024 1:52 PM EST documented as of this encounter Care Teams Organic Gardening Teacher Relationship Specialty Start Date End Date Jevon Vazquez MD [address] [place] [address] #1 #1 [place] [address] PCP - General 03/23/22 documented as of this encounter
--- OUTSIDE RECORDS SUMMARY | 2025-02-13 09:01 | XMS_ITS ---
Author Organization [facility] Address [address] [place] [address] Care Team Providers Care Material Movers Name Role Phone Jevon Vazquez MD Primary Care Provider [phone] Active Problems Problem Noted Date Diagnosed Date [...]
--- OUTSIDE RECORDS SUMMARY | 2025-02-13 09:02 | XMS_ITS | Encounter Summary ---
[facility] Organization [facility] Address [address] [place] [address] Care Team Providers Care Telephone Messenger Name Role Phone Jevon Vazquez MD Primary Care Provider [phone] Reason for Visit * Reason Comments Med Refill Encounter Details Date Type Department Care Team ([facility] Contact Info) Description 01/07/2025 Refill [facility] Hematology/BMT and Cellular Therapy Program [address] [phone] Zonia Hoffman, SENIOR FUND ACCOUNTANT 800 [facility] [address] [place] [phone] Social History Tobacco Use Types Packs/Day Years [...] [facility] Contact Info) Description 03/03/2025 1:00 PM EST Clinical Support [facility] Hematology/BMT and Cellular Therapy Program [address] [phone] 03/03/2025 1:30 PM EST Office Visit [facility] Hematology/BMT and Cellular Therapy Program [address] [phone] Zonia Hoffman, SENIOR FUND ACCOUNTANT 800 [facility] [address] [place] [address] documented as of this encounter Visit Diagnoses Not on filedocumented in this encounter Additional Health Concerns Assessment Noted Time A fall risk assessment has been complete d for the patient 09/30/2024 9:33 AM EDT A Body Mass Index follow-up plan has been documented for the patient 05/28/2024 1:52 PM EST documented as of this encounter Care Teams Telephone Messenger Relationship Specialty Start Date End Date Jevon Vazquez MD [address] [place] [address] [address] [place] [address] PCP - General 03/23/22 documented as of this encounter
--- OUTSIDE RECORDS SUMMARY | 2025-02-13 09:02 | XMS_ITS | Encounter Summary ---
Author Organization [facility] Address [address] [place] [address] Care Team Providers Care Veterinary Technology Instructor Name Role Phone Jevon Vazquez MD Primary Care Provider [phone] Encounter Details Date Type Department Care Team ([facility] Contact Info) Description 12/29/2024 Telephone [facility] Hematology/BMT and Cellular Therapy Program [address] [phone] Bibiana Sepulveda, CARTRIDGE MAKER 800 [facility] [address] [place] [phone] Social History Tobacco Use Types Packs/Day Years [...] wants to repeat BMBx. She verbalizes understanding. Contract Negotiation Manager made aware. documented in this encounter Plan of Treatment Upcoming Encounters Date Type Department Care Team ([facility] Contact Info) Description 03/03/2025 1:00 PM EST Clinical Support [facility] Hematology/BMT and Cellular Therapy Program [address] [place] [address] 03/03/2025 1:30 PM EST Office Visit [facility] Hematology/BMT and Cellular Therapy Program [address] [place] [address] Zonia Hoffman, CARTRIDGE MAKER 800 [facility] [address] [place] [phone] documented as of this encounter Visit Diagnoses Not on filedocumented in this encounter Additional Health Concerns Assessment Noted Time A fall risk assessment has been complete d for the patient 09/30/2024 9:33 AM EDT A Body Mass Index follow-up plan has been documented for the patient 05/28/2024 1:52 PM EST documented as of this encounter Care Teams Veterinary Technology Instructor Relationship Specialty Start Date End Date Jevon Vazquez MD [address] [place] [address] [address] [place] [phone] PCP - General 03/23/22 documented as of this encounter
--- OUTSIDE RECORDS SUMMARY | 2025-02-13 09:02 | XMS_ITS | Clinical Summary ---
Author Organization [facility] Address [address] [place] [address] Care Team Providers Care Telesales Manager Name Role Phone Jevon Vazquez MD Primary Care Provider [phone] Allergies No known active allergies Medications amLODIPine [...] Refill [facility] Hematology/BMT and Cellular Therapy Program [address] [place] [address] [place] [phone] Zonia Hoffman APRN 01/28/2025 Telephone [facility] H[facility]ology/BMT and Cellular Therapy Program [address] [place] [address] [place] [phone] New Mckinney MD 01/27/2025 3:30 PM EDT Office Visit [facility] Hematology/BMT and Cellular Therapy Program [address] [place] [address] [place] [phone] New Mckinney MD Encounter for antineoplastic immunotherapy (Primary Dx); 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); Immunosuppressed status (CMS/HCC) 01/27/2025 3:00 PM EDT Clinical Support [facility] Hematology/BMT and Cellular Therapy Program [address] [place] [address] [place] [address] Oscar Cortez, RN 01/27/2025 Telephone [facility] [address] [place] [address] Emil Hardy, PharmD 01/27/2025 Telephone [facility] Hematology/BMT and Cellular Therapy Program [address] [phone] Alyson Vivas RN 01/27/2025 Travel 01/20/2025 Travel 01/16/2025 Telephone [facility] Hematology/BMT and Cellular Therapy Program [address] [phone] Daxa Elliott RN 01/12/2025 10:00 AM EDT Procedure Visit [facility] Hematology/BMT and Cellular Therapy Program [address] [place] [phone] Rebecca Barrientos PA Myelodysplastic syndrome (CMS/HCC); 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) 01/12/2025 9:30 AM EDT Clinical Support [facility] Hematology/BMT and Cellular Therapy Program [address] [place] [phone] 01/12/2025 Travel 01/07/2025 Travel 01/07/2025 Telephone [facility]ematology/BMT and Cellular Therapy Program [address] [phone] Sabine Clemons MD 01/07/2025 Refill [facility]ology[facility]BMT and Cellular Therapy Program [address] [phone] Zonia Hoffman, CUSTOMER ASSISTANCE REPRESENTATIVE 01/05/2025 Travel 01/05/2025 Refill [facility]ology[facility]BMT [facility] Cellular Therapy Program [address] [phone] Zonia Hoffman, CUSTOMER ASSISTANCE REPRESENTATIVE 12/29/2024 Orders Only [facility] Hematology/BMT and Cellular Therapy Program [address] [phone] New Mckinney MD Myelodysplastic syndrome (CMS/HCC) (Primary Dx) 12/29/2024 Telephone [facility]ology/BMT and Cellular Therapy Program [address] [phone] Bibiana Sepulveda, CUSTOMER ASSISTANCE REPRESENTATIVE 12/28/2024 Travel 12/26/2024 Travel 12/25/2024 Travel 12/24/2024 Travel 12/23/2024 Travel 12/11/2024 Telephone [facility]ematology/BMT and Cellular Therapy Program [address] [phone] New Mckinney MD 12/10/2024 Travel 12/09/2024 Refill [facility] Hematology/BMT and Cellular Therapy Program [address] [phone] Zonia Hoffman, CUSTOMER ASSISTANCE REPRESENTATIVE 11/27/2024 Telephone [facility] Hematology/BMT and Cellular Therapy Program [address] [phone] Zonia Hoffman, CUSTOMER ASSISTANCE REPRESENTATIVE 11/26/2024 Travel 11/25/2024 Travel 11/24/2024 Travel 11/23/2024 Travel 11/22/2024 Travel 11/13/2024 Orders Only [facility] Hematology/BMT and Cellular Therapy Program [address] [phone] 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, bone 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) [...] Hematology/BMT and Cellular Therapy Program [address] [phone] 03/03/2025 1:30 PM EST Office Visit [facility] Hematology/BMT and Cellular Therapy Program [address] [phone] Zonia Hoffman, CUSTOMER ASSISTANCE REPRESENTATIVE 800 [facility] [address] [place] [phone] Health Maintenance Due Date Last Done Comments [facility]Medicare Annual Wellness (AWV) 1950 [facility]-Infant/Child/Adol SDOH Screenings 1950 [facility]- SDOH Screenings 1968 [facility]-Adult SDOH Screenings 1968 CT Colonography 11/04/1995 Colonoscopy 11/04/1995 FIT-DNA 11/04/1995 FIT 11/04/1995 FOBT 11/04/1995 Sigmoidoscopy 11/04/1995 [facility]-Colorectal Cancer Screening 11/04/1995 [facility]-Breast Cancer Screening 2000 [facility]-RSV Vaccine: 60+ Years or (1 - Risk 60-74 years 1-dose series) 2010 [facility]-Zoster Vaccines (1 of 2) 05/16/2023 03/21/2023 [facility]-Bone Density Scan 07/25/2024 07/25/2022 [id number] Vaccine (4 - 2024- season) 2024 02/18/2021, [...] this topic Medical Devices Implanted Type Area Heel Seat Flap Stapler Device Identifier Shelf Expiration Date Model / Serial / Lot Port Clearvue Power 8fr - [id number] Implanted:Qty: 1 on 01/21/2024 by Ness Sargent MD at [facility] Peripherial Vascular-[id number] / / Procedures Procedure Name Priority Date/Time [...] LAB HEMATOLOGY METHOD 01/27/2025 3:21 PM EDT [facility] RBC Count 2.90(L) 3.90 - 5.20 10*6/uL LAB HEMATOLOGY METHOD 01/27/2025 3:21 PM EDT [facility] HGB 8.9(L) 11.2 - 15.7 g/dL LAB HEMATOLOGY METHOD 01/27/2025 3:21 PM EDT [facility] HCT 26.3(L) 34.0 - 45.0 % LAB HEMATOLOGY METHOD 01/27/2025 3:21 PM EDT [facility] Platelet Count 23(L) 155 - 369 10*3/uL LAB HEMATOLOGY METHOD 01/27/2025 3:21 PM EDT [facility] MCV 91 79 - 98 fL LAB HEMATOLOGY METHOD 01/27/2025 3:21 PM EDT [facility] MCH 30.7 26.0 - 32.0 pg LAB HEMATOLOGY METHOD 01/27/2025 3:21 PM EDT [facility] MCHC 33.8 30.7 - 35.5 g/dL LAB HEMATOLOGY METHOD 01/27/2025 3:21 PM EDT [facility] RDW 17.7(H) 11.5 - 14.5 % LAB HEMATOLOGY METHOD 01/27/2025 3:21 PM EDT [facility] MPV 9.0 8.8 - 12.5 fL LAB HEMATOLOGY METHOD 01/27/2025 3:21 PM EDT [facility] nRBC 2.5(H) <=0.0 per 100 WBCs LAB HEMATOLOGY METHOD 01/27/2025 3:21 PM EDT [facility] Differential Type Automated LAB HEMATOLOGY METHOD 01/27/2025 3:21 PM EDT [facility] Neutrophils % 9 % LAB HEMATOLOGY METHOD 01/27/2025 3:21 PM EDT [facility] Lymphocytes % 78 % LAB HEMATOLOGY METHOD 01/27/2025 3:21 PM EDT [facility] Monocytes % 12 % LAB HEMATOLOGY METHOD 01/27/2025 3:21 PM EDT [facility] Eosinophils % 1 % LAB HEMATOLOGY METHOD 01/27/2025 3:21 PM EDT [facility] Basophils % 0 % LAB HEMATOLOGY METHOD 01/27/2025 3:21 PM EDT [facility] Immature Granulocytes % 0 % LAB HEMATOLOGY METHOD 01/27/2025 3:21 PM EDT [facility] Neutrophils Absolute 0.11(LL) 1.60 - 6.10 10*3/uL LAB HEMATOLOGY METHOD 01/27/2025 3:21 PM EDT [facility] Lymphocytes Absolute 0.95(L) 1.20 - 3.90 10*3/uL LAB HEMATOLOGY METHOD 01/27/2025 3:21 PM EDT [facility] Monocytes Absolute 0.15(L) 0.30 - 0.90 10*3/uL LAB HEMATOLOGY METHOD 01/27/2025 3:21 PM EDT [facility] Eosinophils Absolute 0.01 0.00 - 0.50 10*3/uL LAB HEMATOLOGY METHOD 01/27/2025 3:21 PM EDT [facility] Basophils Absolute 0.00 0.00 - 0.10 10*3/uL LAB HEMATOLOGY METHOD 01/27/2025 3:21 PM EDT [facility] Immature Granulocytes Absolute 0.00 [...] BLOOD ORDERABLES Final Re sult [facility] [address] [place] [id number] * (ABNORMAL) Comprehensive Metabolic Panel, Plasma (01/27/2025 [...] Re sult [facility] [address] [place] [address] * BIOPSY BONE MARROW (01/12/2025 10:00 AM EDT) Narrative Rebecca Barrientos PA - 01/12/2025 10:00 AM EDT Rebecca Barrientos PA 01/12/2025 12:20 PM Biopsy bone marrow Performed by: Rebecca Barrientos PA Authorized by: Rebecca Barrientos PA Rebecca SUAREZ IN CLINIC/BEDSIDE ORDERABLE S Final Result * Chromosome Karyotype, Oncology (01/12/2025 9:55 AM EDT) Specimen Type Bone Marrow 01/20/2025 12:21 PM EDT [facility] Clinical Indication Myelodysplastic Syndrome 01/20/2025 12:21 PM EDT [facility] Specimen Adequacy Adequate 025 12:21 PM EDT [facility] Chromosome Analysis Result Giemsa-banded metaphase cells from unstimulated bone marrow cultures showed the following chromosome pattern: 43~44,X,-X,add(5)( q23),del(5)(q13q33 ),todd(7)ins?(7)(q1 1.2q11.2)t(7;12)(q 11.2;q13),-12,todd( 17)add(17)(p13.2)a dd(17)(q21)[16]/88 ,XX,idemx2[cp3]/46 ,XY[1] 01/20/2025 12:21 PM EDT [facility] Interpretation Abnormal female chromosome analysis. 95% of metaphase cells analyzed showed clonal abnormalities consistent with this patient's previous abnormal results (see [facility]-[id number]). Clinical correlation is recommended. Note: Per [employer] ([employer]) requirement an additional karyotype was performed and charged due to the presence of clonal abnormalities. # cells counted = 20 # cells analyzed = 20 # cells karyotyped = 3 Band resolution: 400-450 01/20/2025 12:21 PM EDT [facility] Pathologist Signature Reviewed by: Corey Tejada 01/20/2025 12:21 PM EDT [facility] Bone Marrow Non-blood Collection / Unknown 01/12/2025 9:55 AM EDT 01/12/2025 12:37 PM EDT us New Mckinney MD LAB CYTOGENETICS ORDERABLES F inal Result [facility] [address] [place] [address] * Leukemia/Lymphoma - Immunophenotyping by Flow Cytometry (01/12/2025 9:55 AM EDT) Clinical Indication MDS 01/12/2025 4:19 PM EDT [facility] Flow Cytometry Interpretation APPROXIMATELY 27% MYELOID BLASTS EXPRESSING CD34, CD117, VARIABLE CD33, PARTIAL CD56, VARIABLE HLA-DR, PARTIAL DIM CD7, CD38 AND DIM CD45, SEE COMMENT, BBONE MARROW ASPIRATE. 01/12/2025 4:19 PM EDT [facility] Comments Specimen viability is [...] surface light chains 01/12/2025 4:19 PM EDT [facility] Disclaimer This test was developed and its performance characteristics determined by the Immuno-Molecular Pathology Laboratory at the [facility]. It has not been cleared [...] clinical laboratory testing. 01/12/2025 4:19 PM EDT [facility] Pathologist Signature Reviewed by: Asad Hartman MD 01/12/2025 4:19 PM EDT [facility] MRD Indicated Test Not Indicated 4:19 PM EDT [facility] Bone Marrow Specimen from bone marrow obtained by aspiration / Unknown Non-blood Collection / Unknown 01/12/2025 9:55 AM EDT 01/12/2025 1:48 PM EDT New Mckinney MD LAB FLOW CYTOMETRY ORDERABLES Final Result [facility] [address] [place] [address] * Bone marrow exam (01/12/2025 9:55 AM EDT) Case Report Bone Marrow Case: [id number] Authorizing Provider: New Mckinney MD Collected: 01/12/2025 09 Ordering Location: [facility] Hematology/BMT and Received: 01/12/2025 1143 Cellular Therapy Program Pathologist: Asad Hartman MD Specimens: A) - Bone Marrow Aspirate, left B) - Bone Marrow Biopsy, left C) - Peripheral Blood for Bone Marrow 5:16 PM EDT [facility] Cytogenetics Report, Addendum Chromosome Analysis Result: Giemsa-banded metaphase cells from unstimulated bone marrow cultures showed the following chromosome pattern: 43~44,X,-X,add(5)( q23),del(5)(q13q33 ),todd(7)ins?(7)(q1 1.2q11.2)t(7;12)(q 11.2;q13),-12,todd( 17)add(17)(p13.2)a dd(17)(q21)[16]/88 ,XX,idemx2[cp3]/46 ,XY[1] Interpretation: Abnormal female chromosome analysis. 95% of metaphase cells analyzed showed clonal abnormalities consistent with this patient's previous abnormal results (see [id number]). 5:16 PM EDT [facility] Addendum electronically signed by Asad Hartman MD on 01/23/2025 at 1716 EDT Final Diagnosis PERIPHERAL BLOOD AND BONE MARROW, LEFT POSTERIOR ILIAC CREST, (PERIPHERAL SMEAR, ASPIRATE SMEAR, AND CORE BIOPSY): - HYPOCELLULAR BONE MARROW WITH MARKEDLY DECREASED MEGAKARYOCYTES, DECREASED MATURING GRANULOPOIESIS, APPROXIMATELY 7-10% VARIABLY DISTRIBUTED BLASTS AND MORE THAN 50% RING SIDEROBLASTS, SEE COMMENT. 5:16 PM EDT [facility] at 0941 EDT Comment The discrepancy between blasts percentage by morphologic assessment and flow cytometric analysis is due to erythroid precursors that constitute majority of bone marrow cellularity and are removed by flow cytometry. 5:16 PM EDT [facility] Clinical Information MDS 01/14 5:16 PM EDT [facility] CBC and Differential PERIPHERAL [...] cells. Platelets are decreased. 5:16 PM EDT [facility] Bone Marrow Differential BONE MARROW DIFFERENTIAL: 300 cells Normal Patient Neutrophils 15-50 12 Metamyelocytes 4-19 0 Myelocytes 1-18 1 Promyelocytes 1-8 0 Blasts 0-2 7 Monocytes 0-5 7 Erythroid 16-38 61 Lymphocytes 3-24 7 Eosinophils 0-6 3 Basophils 0-2 0 Plasma cells 0-4 2 Other 5:16 PM EDT [facility] Aspirate Smear The bone marrow aspirate [...] 50% of erythroid precursors. 5:16 PM EDT [facility] Core Biopsy CELLULARITY: Variably [...] Bony trabeculae are normal. 5:16 PM EDT [facility] Special and Immunohistochemical Stains Immunohistochemica [...] at the [facility], [address] [place] [address]. All tests reported here, except those addressing [...] negativity on decalcified specimens. 5:16 PM EDT [facility] Flow Cytometry Interpretation Flow cytometric analysis demonstrates approximately 27% population of myeloid blasts in this patient with history of myelodysplastic syndrome; expressing CD34, CD117, variable CD33, partial CD56, variable HLA-DR, partial dim CD7, CD38 and dim CD45 ([id number]). 5:16 PM EDT [facility] Gross Description B. LEFT A single specimen is received in formalin labeled bone marrow biopsy left posterior iliac crest and consists of 1 piece(s) of red/white tissue measuring 0.9 cm in length 0.2 cm in diameter. The specimen is submitted in to Histology for decalcification and routine processing. Cold Time: <1m 5:16 PM EDT [facility] Note: A resident was involved in the service. I attest I examined the relevant preparations for the specimens and confirmed the diagnosis or interpretation. 5:16 PM EDT [facility] Bone Marrow Peripheral blood [...] PATHOLOGY ORDERABLES Edit ed Result - Final [facility] [address] [place] [address] * Hepatitis C Antibody w/Reflex to HCV Quant PCR (01/07/2024 8:42 AM EDT) Hepatitis C Antibody Negative Negative 01/07/2024 10:13 AM EDT [facility] Blood Venous blood specimen / Unknown Venipuncture / Unknown 01/07/2024 8:42 AM EDT 01/07/2024 9:25 AM EDT us New Mckinney MD LAB BLOOD ORDERABLES Final Re sult [facility] [address] [place] [address] from Last 3 Months or Most Recently Relevant to Health Maintenance Insurance MEDICARE [facility] Care Teams Telesales Manager Relationship Specialty Start Date End Date Jevon Vazquez MD [address] [place] [address] #1 #1 [place] [id number] PCP - General 03/23/22
--- OUTSIDE RECORDS SUMMARY | 2025-02-13 09:02 | XMS_ITS | Encounter Summary ---
Author Organization [facility] Address [address] [place] [address] Care Team Providers Care Technical Services Coordinator Name Role Phone Jevon Vazquez MD Primary Care Provider [phone] Reason for Referral * Genetic Testing (Routine) - Closed Specialty Diagnoses / Procedures Referred By Rebecca Referred To Contact Lab Diagnoses Myelodysplastic syndrome (CMS/HCC) Procedures Cytogenetics Testing, Oncology New Mckinney MD [address] [address] Phone: tel: fax: Referral ID Status Reason Start Date Expiration Date Visits Re quested Visits Authorized [id number] Closed 12/29/2024 06/30/2026 1 1 * Genetic Testing (Routine) - Authorized Specialty Diagnoses / Procedures [facility] Referred To Contact Lab Diagnoses Myelodysplastic syndrome (CMS/HCC) Procedures Leukemia/Lymphoma - Immunophenotyping by Flow Cytometry New Mckinney MD 800 [facility] [address] [address] Phone: tel: fax: Referral ID Status Reason Start Date Expiration Date V isits Requested Visits Authorized [id number] Authorized 12/29/2024 06/30/2026 1 1 * Genetic Testing (Routine) - Authorized Specialty Diagnoses / Procedures [facility] Referred To Contact Lab Diagnoses Myelodysplastic syndrome (CMS/HCC) Procedures Bone marrow exam New Mckinney MD 800 [facility] [address] [place] [phone] Phone: tel: fax: Referral ID Status Reason Start Date Expiration Date V isits Requested Visits Authorized [id number] Authorized 12/29/2024 06/30/2026 1 1 Encounter Details Date Type Department Care Team ([facility] Contact Info) Description 12/29/2024 Orders Only [facility] Hematology/BMT and Cellular Therapy Program [address] [place] [address] New Mckinney MD 800 [facility] [address] [place] [phone] Myelodysplastic syndrome (CMS/HCC) (Primary Dx) Social [...] Hematology/BMT and Cellular Therapy Program [address] [place] [address] 03/03/2025 1:30 PM EST Office Visit [facility] Hematology/BMT and Cellular Therapy Program [address] [place] [address] Zonia Hoffman APRN 800 [facility] [address] [address] documented as of this encounter [...] surface light chains 01/12/2025 4:19 PM EDT [facility] Disclaimer This test was developed and [...] clinical laboratory testing. 01/12/2025 4:19 PM EDT [facility] Pathologist Signature Reviewed by: Asad Hartman MD 01/12/2025 4:19 PM EDT [facility] MRD Indicated Test Not Indicated 4:19 PM EDT [facility] Bone Marrow Specimen from bone marrow obtained by aspiration / Unknown Non-blood Collection / Unknown 01/12/2025 9:55 AM EDT 01/12/2025 1:48 PM EDT us New Mckinney MD LAB FLOW CYTOMETRY ORDERABLES Final Result [facility] [address] [place] [address] * Bone marrow exam (01/12/2025 9:55 AM EDT) Case Report Bone Marrow Case: [id number] Authorizing Provider: New Mckinney MD Collected: 01/12/2025 0955 Ordering Location: [facility] Hematology/BMT and Received: 01/12/2025 [facility] Cellular Therapy Program Pathologist: Asad Hartman MD Specimens: A) - Bone Marrow Aspirate, left B) - Bone Marrow Biopsy, left C) - Peripheral Blood for Bone Marrow 5:16 PM EDT [facility] Cytogenetics Report, Addendum Chromosome Analysis Result: Giemsa-banded metaphase cells from unstimulated bone marrow cultures showed the following chromosome pattern: 43~44,X,-X,add(5)( q23),del(5)(q13q33 ),todd(7)ins?(7)(q1 1.2q11.2)t(7;12)(q 11.2;q13),-12,todd( 17)add(17)(p13.2)a dd(17)(q21)[16]/88 ,XX,idemx2[cp3]/46 ,XY[1] Interpretation: Abnormal female chromosome analysis. 95% of metaphase cells analyzed showed clonal abnormalities consistent with this patient's previous abnormal results (see [id number]). 5:16 PM EDT [facility] [...] cells 0-4 2 Other 5:16 PM EDT [facility] Aspirate Smear The [...] of erythroid precursors. 5 5:16 PM EDT [facility] Core Biopsy CELLULARITY: [...] trabeculae are normal. 5 5:16 PM EDT [facility] Special and Immunohistochemical Stains Immunohistochemica l [...] at the [facility], [address] [place] [address]. All tests reported here, except those addressing [...] negativity on decalcified specimens. 5:16 PM EDT [facility] Flow Cytometry Interpretation Flow cytometric analysis demonstrates approximately 27% population of myeloid blasts in this patient with history of myelodysplastic syndrome; expressing CD34, CD117, variable CD33, partial CD56, variable HLA-DR, partial dim CD7, CD38 and dim CD45 ([id number]). 5:16 PM EDT [facility] Gross Description B. LEFT A single specimen is received in formalin labeled bone marrow biopsy left posterior iliac crest and consists of 1 piece(s) of red/white tissue measuring 0.9 cm in length 0.2 cm in diameter. The specimen is submitted in to Histology for decalcification and routine processing. Cold Time: <1m 5:16 PM EDT [facility] Note: A resident was involved in the service. I attest I examined the relevant preparations for the specimens and confirmed the diagnosis or interpretation. 5:16 PM EDT [facility] Bone Marrow Peripheral [...] - Final [facility] [address] [place] [address] documented in this encounter Visit Diagnoses Diagnosis Myelodysplastic syndrome (CMS/HCC)- Primary Myelodysplastic syndrome, unspecified documented in this encounter Additional Health Concerns Assessment Noted Time A fall risk assessment has been complete d for the patient 09/30/2024 9:33 AM EDT A Body Mass Index follow-up plan has been documented for the patient 05/28/2024 1:52 PM EST documented as of this encounter Care Teams Technical Services Coordinator Relationship Specialty Start Date End Date Jevon Vazquez MD [address] [place] [address] #1 #1 [place] [address] PCP - General 03/23/22 documented as of this encounter
--- OUTSIDE RECORDS SUMMARY | 2025-02-13 09:02 | XMS_ITS | Encounter Summary ---
Author Organization [facility] Address [address] [place] [address] Care Team Providers Care Presidential Helicopter Crew Chief Name Role Phone Jevon Vazquez MD Primary Care Provider [phone] Encounter Details Date Type Department Care Team [...] Hematology/BMT and Cellular Therapy Program [address] [address] 03/03/2025 1:30 PM EST Office Visit [facility] Hematology/BMT and Cellular Therapy Program [address] [address] Zonia Hoffman, CARE SERVICES MANAGER 800 [facility] [address] [place] [phone] documented as of this encounter Visit Diagnoses Not on filedocumented in this encounter Additional Health Concerns Assessment Noted Time A fall risk assessment has been complete d for the patient 09/30/2024 9:33 AM EDT A Body Mass Index follow-up plan has been documented for the patient 05/28/2024 1:52 PM EST documented as of this encounter Care Teams Presidential Helicopter Crew Chief Relationship Specialty Start Date End Date Jevon Vazquez MD [address] [place] [address] #1 #1 [place] [address] PCP - General 03/23/22 documented as of this encounter
--- OUTSIDE RECORDS SUMMARY | 2025-02-13 09:02 | XMS_ITS | Encounter Summary ---
Author Organization Healthcare Address [address] [place] [address] Care Team Providers Care Bonded Structures Repairer Name Role Phone Jevon Vazquez MD Primary Care Provider [phone] Encounter Details Date Type Department Care Team [...] Hematology/BMT and Cellular Therapy Program [address] [address] 03/03/2025 1:30 PM EST Office Visit [facility] Hematology/BMT and Cellular Therapy Program [address] [address] Zonia Hoffman, DIESEL DINKEY ENGINEER 800 [facility] [address] [place] [phone] documented as of this encounter Visit Diagnoses [...] Date End Date Jevon Vazquez MD [address] [place] [address] #1 #1 [place] [address] PCP - General 03/23/22 documented as of this encounter
--- OUTSIDE RECORDS SUMMARY | 2025-02-13 09:02 | XMS_ITS | Encounter Summary ---
Author Organization [facility] Address [address] [place] [address] Care Team Providers Care Video Editor Name Role Phone Jevon Vazquez MD Primary Care Provider [phone] Reason for Visit * Reason Comments Med Refill Encounter Details Date Type Department Care Team ([facility] Contact Info) Description 01/05/2025 Refill [facility] Hematology/BMT and Cellular Therapy Program [address] [phone] Zonia Hoffman, DIVORCE MEDIATOR 800 [facility] [address] [place] [phone] Social History Tobacco Use Types Packs/Day Years [...] Hematology/BMT and Cellular Therapy Program [address] [phone] 03/03/2025 1:30 PM EST Office Visit [facility] Hematology/BMT and Cellular Therapy Program [address] [phone] Zonia Hoffman, DIVORCE MEDIATOR 800 [facility] [address] [place] [address] documented as of this encounter Visit Diagnoses Not on filedocumented in this encounter Additional Health Concerns Assessment Noted Time A fall risk assessment has been complete d for the patient 09/30/2024 9:33 AM EDT A Body Mass Index follow-up plan has been documented for the patient 05/28/2024 1:52 PM EST documented as of this encounter Care Teams Video Editor Relationship Specialty Start Date End Date Jevon Vazquez MD [address] [place] [address] #1 [address]1 [place] [address] PCP - General 03/23/22 documented as of this encounter
--- OUTSIDE RECORDS SUMMARY | 2025-02-13 09:02 | XMS_ITS | Encounter Summary ---
Author Organization Healthcare Address [address] [place] [address] Care Team Providers Care Paper Machine Supervisor Name Role Phone Jevon Vazquez MD Primary Care Provider [phone] Encounter Details Date Type Department Care Team (Late Contact Info) Description 01/16/2025 Telephone [facility] Hematology/BMT and Cellular Therapy Program [address] [place] [address] [place] [address] Daxa Elliott RN [facility]IC [...] Hematology/BMT and Cellular Therapy Program [address] [place] [address] 03/03/2025 1:30 PM EST Office Visit [facility] Hematology/BMT and Cellular Therapy Program 750 [facility] [place] [phone] Zonia Hoffman, HIGHWAY PAINTER HELPER 800 [facility] [address] [place] [phone] documented as of this encounter Visit Diagnoses Not on filedocumented in this encounter Additional Health Concerns Assessment Noted Time A fall risk assessment has been complete d for the patient 09/30/2024 9:33 AM EDT A Body Mass Index follow-up plan has been documented for the patient 05/28/2024 1:52 PM EST documented as of this encounter Care Teams Paper Machine Supervisor Relationship Specialty Start Date End Date Jevon Vazquez MD [address] [place] [address] #1 #1 [place] [address] PCP - General 03/23/22 documented as of this encounter
--- OUTSIDE RECORDS SUMMARY | 2025-02-13 09:02 | XMS_ITS | Clinical Summary ---
Author Organization [facility] Address [address] [place] [address] Care Team Providers Care Bottom Painter Name Role Phone David Vazquez Primary Care Provider [phone] Allergies No known active allergies Medications atorvastatin [...] Discontinued 01/24/2023 Medical Devices Implanted Type Area Wallpaper Embosser Helper Device Identifier Shelf Expiration Date Model / Serial / Lot Mis Ply Scr 6.5x50mm - [id number] Implanted:Qty : 1 on 01/30/2023 by Ivan Bartholomew MD at [facility] Screw N/A: Spine Lumbar [employer] [id number] / / Mis Ply Scr 6.5x45mm - [id number] Implanted:Qty : 3 on 01/30/2023 by Ivan Bartholomew MD at [facility] Screw N/A: Spine Lumbar [employer] [id number] / / Reline Mas Reduction Screw 7.5x45 - [id number] Implanted:Qty : 2 on 01/30/2023 by Ivan Bartholomew MD at [facility] Screw N/A: Spine Lumbar [employer] [id number] / / Grft Dbm Vesuvius Putty 5cc - [id number] Implanted:Qty : 1 on 01/30/2023 by Ivan Bartholomew MD at [facility] [employer] [id number] 04/20/2025 [id number] [id number] P / [id number] / Putty I-Factor 5.0cc - [id number] Implanted:Qty : 1 on 01/30/2023 by Ivan Bartholomew MD at [facility] N/A: Spine Lumbar [employer] 03/15/2025 [id number] / / [id number] Modulus Xlw [id number] 10 Degree - [id number] Implanted:Qty : 1 on 01/30/2023 by Ivan Bartholomew MD at [facility] N/A: Spine Lumbar [employer] [id number] / / [id number] Modulus Xlw [id number] - [id number] Implanted:Qty : 1 on 01/30/2023 by Ivan Bartholomew MD at [facility] N/A: Spine Lumbar [employer] 09/28/2027 [id number] / / [id number] Reln Lock Scr 5.5mm Opn Tulip - [id number] Implanted:Qty : 6 on 01/30/2023 by Ivan Bartholomew MD at [facility] N/A: Spine Lumbar [employer] [id number] / / Reln Mas Ti Petar 5.5x70mm - [id number] Implanted:Qty : 2 on 01/30/2023 by Ivan Bartholomew MD at [facility] N/A: Spine Lumbar [employer] [id number] / / Procedures Procedure Name Priority Date/Time [...] lt [facility] [address] from Last 3 Months or Most Recently Relevant to Health Maintenance Insurance MEDICARE Member Subscriber Plan / Payer (Ef fective 2016-Present) Name:Ashly Briceño Member ID:[id number] Relation to Subscriber:Self Name:Ashly Briceño Subscriber ID:[id number] Payer ID:[id number] Group ID:Not on file Type:Medicare Address: [facility] J15 PART A [facility] [place] [address] [place] [address] [facility] Advance Directives For more information, please contact: [phone] * Full Code (Latest Code Status on File) Date Activated Date Inactivated Comments 01/30/2023 9:13 AM No automated chest compression devices for VAD Patients Care Teams Bottom Painter Relationship Specialty Start Date End Date David Vazquez [address] [place] [address] PCP - General 01/24/23
--- OUTSIDE RECORDS SUMMARY | 2025-02-13 09:02 | XMS_ITS | Encounter Summary ---
Author Organization Healthcare Address [address] [place] [address] Care Team Providers Care Rheumatologist Name Role Phone Jevon Vazquez MD Primary Care Provider [phone] Encounter Details Date Type Department Care Team [...] Hematology/BMT and Cellular Therapy Program [address] [address] 03/03/2025 1:30 PM EST Office Visit [facility] Hematology/BMT and Cellular Therapy Program [address] [address] Zonia Hoffman, WEB SERVICES PROFESSIONAL 800 [facility] [address] [place] [phone] documented as of this encounter Visit Diagnoses Not on filedocumented in this encounter Additional Health Concerns Assessment Noted Time A fall risk assessment has been complete d for the patient 09/30/2024 9:33 AM EDT A Body Mass Index follow-up plan has been documented for the patient 05/28/2024 1:52 PM EST documented as of this encounter Care Teams Rheumatologist Relationship Specialty Start Date End Date Jevon Vazquez MD [address] [place] [address] #1 #1 [place] [address] PCP - General 03/23/22 documented as of this encounter
--- OUTSIDE RECORDS SUMMARY | 2025-02-13 09:02 | XMS_ITS | Encounter Summary ---
Author Organization [facility] Address [address] [place] [address] Care Team Providers Care Postal Supervisor Name Role Phone Jevon Vazquez MD Primary Care Provider [phone] Encounter Details Date Type Department Care Team ([facility] Contact Info) Description 01/07/2025 Telephone [facility] Hematology/BMT and Cellular Therapy Program [address] [phone] Sabine Clemons MD 800 [facility] [address] [place] [phone] Social History Tobacco Use Types Packs/Day Years [...] Upcoming Encounters Date Type Department Care Team ([facility] Contact Info) Description 03/03/2025 1:00 PM EST Clinical Support [facility] Hematology/BMT and Cellular Therapy Program [address] [phone] 03/03/2025 1:30 PM EST Office Visit [facility] Hematology/BMT and Cellular Therapy Program [address] [phone] Zonia Hoffman, FBI INVESTIGATOR 800 [facility] [address] [place] [address] documented as of this encounter Visit Diagnoses Not on filedocumented in this encounter Additional Health Concerns Assessment Noted Time A fall risk assessment has been complete d for the patient 09/30/2024 9:33 AM EDT A Body Mass Index follow-up plan has been documented for the patient 05/28/2024 1:52 PM EST documented as of this encounter Care Teams Postal Supervisor Relationship Specialty Start Date End Date Jevon Vazquez MD [address] [place] [address] #1 #1 [place] [address] PCP - General 03/23/22 documented as of this encounter
--- OUTSIDE RECORDS SUMMARY | 2025-02-13 09:03 | XMS_ITS | Encounter Summary ---
Author Organization Healthcare Address [address] [place] [address] Care Team Providers Care Cloth Doubling Machine Operator Name Role Phone Jevon Vazquez MD Primary Care Provider [phone] Encounter Details Date Type Department Care Team [...] Hematology/BMT and Cellular Therapy Program [address] [phone] 03/03/2025 1:30 PM EST Office Visit [facility] Hematology/BMT and Cellular Therapy Program [address] [address] Zonia Hoffman, RODDY 800 [facility] [address] [place] [phone] documented as of this encounter Visit Diagnoses Not on filedocumented in this encounter Additional Health Concerns Assessment Noted Time A fall risk assessment has been complete d for the patient 01/27/2025 3:25 PM EDT A Body Mass Index follow-up plan has been documented for the patient 05/28/2024 1:52 PM EST documented as of this encounter Care Teams Cloth Doubling Machine Operator Relationship Specialty Start Date End Date Jevon Vazquez MD [address] [place] [address] #1 #1 [place] [address] PCP - General 03/23/22 documented as of this encounter
--- OUTSIDE RECORDS SUMMARY | 2025-02-13 09:03 | XMS_ITS | Encounter Summary ---
Author Organization Healthcare Address [address] [place] [address] Care Team Providers Care Development Scientist Name Role Phone Jevon Vazquez MD Primary Care Provider [phone] Encounter Details Date Type Department Care Team ([facility] Contact Info) Description 01/28/2025 Telephone [facility] Hematology/BMT and Cellular Therapy Program [address] [phone] New Mckinney MD 800 [facility] [address] [place] [phone] Social History Tobacco Use Types Packs/Day Years [...] patient to inform patient of appointment at [place] on 02/04. Patient was informed that a Lecere message will be sent with information. documented in this encounter Plan of Treatment Upcoming Encounters Date Type Department Care Team ([facility] Contact Info) Description 03/03/2025 1:00 PM EST Clinical Support [facility] Hematology/BMT and Cellular Therapy Program [address] [place] [address] 03/03/2025 1:30 PM EST Office Visit PAV Hematology/BMT and Cellular Therapy Program [address] [place] [address] Zonia Hoffman, CAMPUS SECURITY OFFICER 800 [facility] [address] [place] [phone] documented as of this encounter Visit Diagnoses Not on filedocumented in this encounter Additional Health Concerns Assessment Noted Time A fall risk assessment has been complete d for the patient 01/27/2025 3:25 PM EDT A Body Mass Index follow-up plan has been documented for the patient 05/28/2024 1:52 PM EST documented as of this encounter Care Teams Development Scientist Relationship Specialty Start Date End Date Jevon Vazquez MD [address] [place] [address] #1 #1 [place] [address] PCP - General 03/23/22 documented as of this encounter
--- OUTSIDE RECORDS SUMMARY | 2025-02-13 09:03 | XMS_ITS | Encounter Summary ---
Author Organization Healthcare Address [address] [place] [address] Care Team Providers Care Filler In Name Role Phone Jevon Vazquez MD Primary Care Provider [phone] Encounter Details Date Type Department Care Team [...] Hematology/BMT and Cellular Therapy Program [address] [address] 03/03/2025 1:30 PM EST Office Visit [facility] Hematology/BMT and Cellular Therapy Program [address] [phone] Zonia Hoffman, AEROSPACE PRODUCTS SALES ENGINEER 800 [facility] [address] [place] [phone] documented as of this encounter Visit Diagnoses Not on filedocumented in this encounter Additional Health Concerns Assessment Noted Time A fall risk assessment has been complete d for the patient 09/30/2024 9:33 AM EDT A Body Mass Index follow-up plan has been documented for the patient 05/28/2024 1:52 PM EST documented as of this encounter Care Teams Filler In Relationship Specialty Start Date End Date Jevon Vazquez MD [address] [place] [address] #1 #1 [place] [address] PCP - General 03/23/22 documented as of this encounter
--- OUTSIDE RECORDS SUMMARY | 2025-02-13 09:03 | XMS_ITS | Encounter Summary ---
Author Organization Healthcare Address [address] [place] [address] Care Team Providers Care Sheet Metal Production Worker Name Role Phone Jevon Vazquez MD Primary Care Provider [phone] Encounter Details Date Type Department Care Team [...] Hematology/BMT and Cellular Therapy Program [address] [address] 03/03/2025 1:30 PM EST Office Visit [facility] Hematology/BMT and Cellular Therapy Program [address] [address] Zonia Hoffman, INDUSTRIAL CONVEYOR BELT REPAIRER 800 [facility] [address] [place] [phone] documented as of this encounter Visit Diagnoses Not on filedocumented in this encounter Additional Health Concerns Assessment Noted Time A fall risk assessment has been complete d for the patient 09/30/2024 9:33 AM EDT A Body Mass Index follow-up plan has been documented for the patient 05/28/2024 1:52 PM EST documented as of this encounter Care Teams Sheet Metal Production Worker Relationship Specialty Start Date End Date Jevon Vazquez MD [address] [place] [address] #1 #1 [place] [address] PCP - General 03/23/22 documented as of this encounter
--- OUTSIDE RECORDS SUMMARY | 2025-02-13 09:03 | XMS_ITS | Encounter Summary ---
Author Organization [facility] Address [address] [place] [address] Care Team Providers Care Net Developer Programmer Name Role Phone Jevon Vazquez MD Primary Care Provider [phone] Encounter Details Date Type Department Care Team (Late st Contact Info) Description 01/27/2025 Telephone [facility] [address] [place] [phone] Emil Hardy, PharmD Social History Tobacco Use [...] Valdes, PharmD - 01/28/2025 2:[address] [facility] Specialty Medication Initial Care Plan [...] Injectable, preservative free 03/21/2024 Moderna COVID-19 Vaccine (Certified Juvenile Probation Officer) 12+ years 06/12/2020, 07/10/2020, 02/18/2021 Selected lab [...] Patient reports education was provided by clinic [facility]. She denied further education at this [...] Hematology/BMT and Cellular Therapy Program [address] [address] 03/03/2025 1:30 PM EST Office Visit PAV Hematology/BMT and Cellular Therapy Program [address] [address] Zonia Hoffman, SENIOR AUTOMATION ENGINEER 800 [facility] [address] [place] [phone] documented as of this encounter Visit Diagnoses Not on filedocumented in this encounter Additional Health Concerns Assessment Noted Time A fall risk assessment has been complete d for the patient 01/27/2025 3:25 PM EDT A Body Mass Index follow-up plan has been documented for the patient 05/28/2024 1:52 PM EST documented as of this encounter Care Teams Net Developer Programmer Relationship Specialty Start Date End Date Jevon Vazquez MD [address] [place] [address] #1 [address]1 [place] [address] PCP - General 03/23/22 documented as of this encounter
--- OUTSIDE RECORDS SUMMARY | 2025-02-13 09:03 | XMS_ITS | Encounter Summary ---
Author Organization [facility] Address [address] [place] [address] Care Team Providers Care Central Processing Tech Name Role Phone Jevon Vazquez MD Primary Care Provider [phone] Encounter Details Date Type Department Care Team ([facility] Contact Info) Description 01/27/2025 Telephone [facility] CC Hematology/BMT and Cellular Therapy Program [address] [place] [address] Alyson Vivas RN Social History Tobacco Use [...] Type Department Care Team ([facility] Contact Info) Description 03/03/2025 1:00 PM EST Clinical Support PAV CC Hematology/BMT and Cellular Therapy Program [address] [place] [address] 03/03/2025 1:30 PM EST Office Visit PAV CC Hematology/BMT and Cellular Therapy Program [address] [place] [phone] Zonia Hoffman, CLOTH SPONGER 800 [facility] [address] [place] [address] documented as of this encounter Visit Diagnoses Not on filedocumented in this encounter Additional Health Concerns Assessment Noted Time A fall risk assessment has been complete d for the patient 01/27/2025 3:25 PM EDT A Body Mass Index follow-up plan has been documented for the patient 05/28/2024 1:52 PM EST documented as of this encounter Care Teams Central Processing Tech Relationship Specialty Start Date End Date Jevon Vazquez MD [address] [place] [address] [address]1 [address]1 [place] [address] PCP - General 03/23/22 documented as of this encounter
--- OUTSIDE RECORDS SUMMARY | 2025-02-13 09:03 | XMS_ITS | Clinical Summary ---
Author Organization [facility] Address [address] [place] [address] Phone Care Team Providers Care Table Tender Sludge Name Role Phone Jevon Vazquez MD Primary Care Provider [phone] Allergies Active Allergy Reactions Criticality Noted Date [...] L4-5 LAMINECTOMY; Surgeon: Ivan Bartholomew MD; Location: [facility] OR; Service: Spine Medical History [...] 5.6 % 11/14/2022 2:57 PM EDT PREFERRED [employer] Est. Avg Glucose 148 mg/dL 11/14/2022 2:57 PM EDT [employer] Blood VENOUS BLOOD / Unknown Venipuncture / Unknown 11/11/2022 3:46 PM EDT 11/11/2022 3:55 PM EDT Narrative PREFERRED [employer] [facility] - 11/14/2022 2:57 PM EDT REFERENCE RANGE: Normal: 4.0-5.6% Pre-diabetes: 5.7-6.4% Provisional diagnosis of diabetes: >6.4% Hgb F>10% and anything which shortens red cell survival, such as hemolytic anemia, or unstable hemoglobin variants such as HbSS, HbSC, or HbCC, will lower the HbA1c value associated with a given level of glycemic control. us Lexi Maloney DO CHEMISTRY ORDERABLES Final R esult [employer] 1 [facility] , [address] [place] [id number] * (ABNORMAL) BASIC METABOLIC PANEL (11/11/2022 3:46 [...] PM EDT [facility] eGFR (CKD-EPIcr 2021) 76 >=60 mL/min/1.7 3 m2 11/11/2022 4:11 PM EDT [facility] Comment:Estimated GFR was ca lculated using the CKD-EPIcr (2020) equation refit without race. The equation is recommended by the National Kidney Foundation - [place] Society of Nephrology Task Force. Blood VENOUS BLOOD / Unknown Venipuncture / Unknown 11/11/2022 3:46 PM EDT 11/11/2022 3:54 PM EDT us Leona Hanna DO CHEMISTRY ORDERABLES Final Res ult [facility] [address] [place] [address] * DX BONE DENSITY AXIAL SKELETON (07/25/2022 9:14 AM EDT) Anatomical Region Laterality Modality Dexa Scan 07/25/2022 Narrative 07/25/2022 3:45 PM EDT Indication: The patient is a female age 65 or older who requires a bone density assessment. Study was performed on [employer] 5. Bone Density: Region BMD T-score Z-score [...] Payer (Ef fective 2016-Present) Name:Ashly Hernández Member ID:[id number] Relation to Subscriber:Self Name:Ashly Hernández Subscriber ID:[id number] Payer ID:Not on file Group ID:Not on file Type:Not on file Address: [address] MEDICARE SUPPLEMENT MEDICARE [place] PART A & B MEDICARE [place] PART A AND B Member Subscriber Plan / Payer (Ef fective 2016-Present) Name:Ashly Hernández Member ID:[id number] Relation to Subscriber:Self Name:Ashly Hernández Subscriber ID:[id number] Payer ID:Not on file Group ID:Not on file Type:Not on file Address: [address] MEDICARE SUPPLEMENT [employer] MEDICARE [place] PART A AND B [address] MEDICARE SUPPLEMENT Advance Directives For more information, please contact: [phone] * Full Code (Latest Code Status on File) Date Activated Date Inactivated Comments 11/14/2022 6:53 PM 11/16/2022 7:37 PM * Full Code Date Activated Date Inactivated Comments 11/12/2022 5:17 AM 11/14/2022 6:47 PM Care Teams Table Tender Sludge Relationship Specialty Start Date End Date Jevon Vazquez MD [address] [place] [address] PCP - General Family Medicine 11/10/22
--- OUTSIDE RECORDS SUMMARY | 2025-02-13 09:03 | XMS_ITS | Encounter Summary ---
Author Organization [facility] Address [address] [place] [address] Care Team Providers Care Library Media Technician Name Role Phone Jevon Vazquez MD Primary Care Provider [phone] Encounter Details Date Type Department Care Team [...] Hematology/BMT and Cellular Therapy Program [address] [phone] 03/03/2025 1:30 PM EST Office Visit PAV CC Hematology/BMT and Cellular Therapy Program [address] [address] Zonia Hoffman, MANAGER AGRICULTURAL 800 [facility] [address] [place] [address] documented as of this encounter Visit Diagnoses Not on filedocumented in this encounter Additional Health Concerns Assessment Noted Time A fall risk assessment has been complete d for the patient 09/30/2024 9:33 AM EDT A Body Mass Index follow-up plan has been documented for the patient 05/28/2024 1:52 PM EST documented as of this encounter Care Teams Library Media Technician Relationship Specialty Start Date End Date Jevon Vazquez MD [address] [place] [address] #1 [address]1 [place] [address] PCP - General 03/23/22 documented as of this encounter
--- OUTSIDE RECORDS SUMMARY | 2025-02-13 09:03 | XMS_ITS | Encounter Summary ---
Author Organization Healthcare Address [address] [place] [address] Care Team Providers Care Foreign Diplomat Name Role Phone Jevon Vazquez MD Primary Care Provider [phone] Encounter Details Date Type Department Care Team [...] Hematology/BMT and Cellular Therapy Program [address] [address] 03/03/2025 1:30 PM EST Office Visit PAV CC Hematology/BMT and Cellular Therapy Program [address] [address] Zonia Hoffman, SURGICAL PROCESSOR 800 [facility] [address] [place] [phone] documented as of this encounter Visit Diagnoses Not on filedocumented in this encounter Additional Health Concerns Assessment Noted Time A fall risk assessment has been complete d for the patient 09/30/2024 9:33 AM EDT A Body Mass Index follow-up plan has been documented for the patient 05/28/2024 1:52 PM EST documented as of this encounter Care Teams Foreign Diplomat Relationship Specialty Start Date End Date Jevon Vazquez MD [address] [place] [address] #1 #1 [place] [address] PCP - General 03/23/22 documented as of this encounter
[2025-02-13 09:15] LABS: Albumin Level 4.0 g/dl (3.5-5.0); Chloride 104 mmol/L (98-107); Potassium 3.5 mmoL/L (3.5-5.1); Sodium 134 mmol/L (136-145)
[2025-02-13 09:16] LABS: Hematocrit 23.3 % (37.0-47.0); Hemoglobin 7.7 g/dL (12.2-16.2); Immature Granulocytes % 0 %; Mean Corpuscular HGB Conc 33.0 g/dL (31.8-35.4); Mean Corpuscular Hemoglobin 29.3 pg (27.0-31.2); Mean Corpuscular Volume 88.6 fl (81-99); Nucleated Red Blood Cells % 0 %; Red Blood Count 2.63 M/mm3 (4.20-5.40); Red Cell Distribution Width-SD 54.0 fL
[2025-02-13 09:17] LABS: Blood Urea Nitrogen 16 mg/dl (7-17); Creatinine Clearance Estimated 43 mL/min (50-200); Creatinine,Serum 0.90 mg/dl (0.52-1.04); Estimated Glomerular Filt Rate 61 ml/min (>60); GFR (African American) 74 ML/MIN (>60)
[2025-02-13 09:18] LABS: Alanine Aminotransferase 11 U/L (12-78); Albumin/Globulin Ratio 1.8 (1.1-1.8); Alkaline Phosphatase 49 U/L (38-126); Anion Gap 8.5 mEq/L (5-15); Aspartate Amino Transferase 25 U/L (14-36); Bilirubin,Total 0.5 mg/dl (0.2-1.3); Calcium 9.0 mg/dl (8.4-10.2); Carbon Dioxide 25 mmol/L (22.0-30.0); Globulin 2.2 g/dL (1.3-3.2); Glucose 156 mg/dl (74-100); Total Protein,Serum 6.2 g/dl (6.3-8.2)
[2025-02-13 09:35] LABS: Platelet Count 3 K/mm3 (142-424); White Blood Count 0.6 K/mm3 (4.8-10.8)
[2025-02-13 11:17] LABS: RBC Morphology Normal; Total Cells Counted 25
[2025-02-13] MEDS: 0.9 % SODIUM CHLORIDE 500 ML 100 ML IV (14:15)
--- NOTE | 2025-02-13 14:18 | PC.NURSE ---
1415-Platelet transfusion started by gravity at this time.
[2025-02-13] MEDS: ACETAMINOPHEN 325MG TAB 650 MG PO (14:23)
--- NOTE | 2025-02-13 15:14 | PC.NURSE ---
1508-Blood transfusion started at 100 ml/hr at this time.
--- NOTE | 2025-02-13 15:40 | PC.NURSE ---
1538-Transfusion rate increased from 100 ml/hr to 250 ml/hr at this time.
--- NOTE | 2025-02-13 16:57 | PC.NURSE ---
1657-Pt completed blood transfusion but wished to go ahead and leave instead of waiting on 1 hour post vital signs. Pt showing no s&s of transfusion reactions and is due to return on 02/16/25 for repeat labs and transfusions per standing orders.
== END 2025-02-13 23:59 | disposition home or self-care (01) ==
LOC: INF 08:57
PROVIDERS: PCP Family Medicine; Visit Provider Internal Medicine Medical Oncology
DX: C92.00 Acute myeloblastic leukemia, not having achieved remission (principal)
CPT/HCPCS: 36430; 80053; 85007; 85025; 86850; J1642; J7040; P9016; P9034

== ENCOUNTER 2025-02-16 08:56 | Outpatient (CLI) | payer MEDICARE, BC, SELFPAY ==
[2025-02-16 08:58] VITALS: BMI 20.9
--- OUTSIDE RECORDS SUMMARY | 2025-02-16 09:01 | XMS_ITS | Clinical Summary ---
Author Organization [facility] Address [address] [place] [address] Phone Care Team Providers Care Hydraulic Governor Assembler Name Role Phone Jevon Vazquez MD Primary Care Provider [phone] Allergies Active Allergy Reactions Criticality Noted Date [...] 5.6 % 11/14/2022 2:57 PM EDT PREFERRED [employer] Est. Avg Glucose 148 mg/dL 11/14/2022 2:57 PM EDT [employer] Blood VENOUS BLOOD / Unknown Venipuncture / Unknown 11/11/2022 3:46 PM EDT 11/11/2022 3:55 PM EDT Narrative PREFERRED [employer] [facility] - 11/14/2022 2:57 PM EDT REFERENCE RANGE: Normal: 4.0-5.6% Pre-diabetes: 5.7-6.4% Provisional diagnosis of diabetes: >6.4% Hgb F>10% and anything which shortens red cell survival, such as hemolytic anemia, or unstable hemoglobin variants such as HbSS, HbSC, or HbCC, will lower the HbA1c value associated with a given level of glycemic control. us Lexi Maloney DO CHEMISTRY ORDERABLES Final R esult [employer] 1 [facility] , [address] [place] [id number] * (ABNORMAL) BASIC METABOLIC PANEL (11/11/2022 3:46 PM EDT) Sodium 136 136 - 145 mmol/L 11/11/2022 4:11 PM EDT [facility] Potassium 3.8 3.5 - 5.0 mmol/L 11/11/2022 4:11 PM EDT [facility] Chloride 102 98 - 107 mmol/L 11/11/2022 4:11 PM EDT [facility] Total CO2 24 22 - 29 mmol/L 11/11/2022 4:11 PM EDT [facility] Anion Gap 10 7 - 16 mmol/L 11/11/2022 4:11 PM EDT [facility] Calcium 10.1 8.8 - 10.4 mg/dL 11/11/2022 4:11 PM EDT [facility] Glucose Lvl 147(H) 82 - 100 mg/dL 11/11/2022 4:11 PM EDT [facility] BUN 15 8 - 23 mg/dL 11/11/2022 4:11 PM EDT [facility] Creatinine 0.82 0.51 - 1.30 mg/dL 11/11/2022 4:11 PM EDT [facility] eGFR (CKD-EPIcr 2021) 76 >=60 mL/min/1.7 3 m2 11/11/2022 4:11 PM EDT [facility] Comment:Estimated GFR was ca lculated using the CKD-EPIcr (2020) equation refit without race. The equation is recommended by the National Kidney Foundation - [place] Society of Nephrology Task Force. Blood VENOUS BLOOD / Unknown Venipuncture / Unknown 11/11/2022 3:46 PM EDT 11/11/2022 3:54 PM EDT us Leona Hanna DO CHEMISTRY ORDERABLES Final Res ult [facility] [address] [place] [address] * DX BONE DENSITY AXIAL SKELETON (07/25/2022 9:14 AM EDT) Anatomical Region Laterality Modality Dexa Scan 07/25/2022 Narrative 07/25/2022 3:45 PM EDT Indication: The patient is a female age 65 or older who requires a bone density assessment. Study was performed on [employer] 5. Bone Density: Region BMD T-score Z-score [...] Payer (Ef fective 2016-Present) Name:Ashly Hernández Member ID:[id number] Relation to Subscriber:Self Name:Ashly Hernández Subscriber ID:[id number] Payer ID:Not on file Group ID:Not on file Type:Not on file Address: [address] MEDICARE SUPPLEMENT MEDICARE [place] PART A & B MEDICARE [place] PART A AND B Member Subscriber Plan / Payer (Ef fective 2016-Present) Name:Ashly Hernández Member ID:[id number] Relation to Subscriber:Self Name:Ashly Hernández Subscriber ID:[id number] Payer ID:Not on file Group ID:Not on file Type:Not on file Address: [address] MEDICARE SUPPLEMENT [employer] MEDICARE [place] PART A AND B [address] MEDICARE SUPPLEMENT Advance Directives For more information, please contact: [phone] * Full Code (Latest Code Status on File) Date Activated Date Inactivated Comments 11/14/2022 6:53 PM 11/16/2022 7:37 PM * Full Code Date Activated Date Inactivated Comments 11/12/2022 5:17 AM 11/14/2022 6:47 PM Care Teams Hydraulic Governor Assembler Relationship Specialty Start Date End Date Jevon Vazquez MD [address] [place] [address] PCP - General Family Medicine 11/10/22
--- OUTSIDE RECORDS SUMMARY | 2025-02-16 09:01 | XMS_ITS | Clinical Summary ---
Author Organization [facility] Address [address] [place] [address] Care Team Providers Care Brickmason Supervisor Name Role Phone David Vazquez Primary Care Provider [phone] Allergies No known active allergies Medications atorvastatin [...] Discontinued 01/24/2023 Medical Devices Implanted Type Area Cotton Ginner Helper Device Identifier Shelf Expiration Date Model / Serial / Lot Mis Ply Scr 6.5x50mm - [id number] Implanted:Qty : 1 on 01/30/2023 by Ivan Bartholomew MD at [facility] Screw N/A: Spine Lumbar [employer] [id number] / / Mis Ply Scr 6.5x45mm - [id number] Implanted:Qty : 3 on 01/30/2023 by Ivan Bartholomew MD at [facility] Screw N/A: Spine Lumbar [employer] [id number] / / Reline Mas Reduction Screw 7.5x45 - [id number] Implanted:Qty : 2 on 01/30/2023 by Ivan Bartholomew MD at [facility] Screw N/A: Spine Lumbar [employer] [id number] / / Grft Dbm Vesuvius Putty 5cc - [id number] Implanted:Qty : 1 on 01/30/2023 by Ivan Bartholomew MD at [facility] [employer] [id number] 04/20/2025 [id number] P / [id number] / Putty I-Factor 5.0cc - [id number] Implanted:Qty : 1 on 01/30/2023 by Ivan Bartholomew MD at [facility] N/A: Spine Lumbar [employer] 03/15/2025 [id number] / / [id number] Modulus Xlw [id number] 10 Degree - [id number] Implanted:Qty : 1 on 01/30/2023 by Ivan Bartholomew MD at [facility] N/A: Spine Lumbar [employer] [id number] / / [id number] Modulus Xlw [id number] - [id number] Implanted:Qty : 1 on 01/30/2023 by Ivan Bartholomew MD at [facility] N/A: Spine Lumbar [employer] 09/28/2027 [id number] / / [id number] Reln Lock Scr 5.5mm Opn Tulip - [id number] Implanted:Qty : 6 on 01/30/2023 by Ivan Bartholomew MD at [facility] N/A: Spine Lumbar [employer] [id number] / / Reln Mas Ti Petar 5.5x70mm - [id number] Implanted:Qty : 2 on 01/30/2023 by Ivan Bartholomew MD at [facility] N/A: Spine Lumbar [employer] [id number] / / Procedures Procedure Name Priority Date/Time [...] LAB Glucose 125(H) 71 - 99 mg/dL [facility] Comment:Reference range (71- 99 mg/dL) [...] mL/min/1.73m2. Calcium 10.3 8.5 - 10.5 mg/dL [facility] BUN/Creatinine Ratio 14 [facility] Serum 01/24/2023 2:32 PM EDT 01/24/2023 5:54 PM EDT Lexi SUAREZ CHEMISTRY ORDERABLES Final Resu lt [facility] [address] from Last 3 Months or Most Recently Relevant to Health Maintenance Insurance MEDICARE Member Subscriber Plan / Payer (Ef fective 2016-Present) Name:Ashly Briceño Member ID:[id number] Relation to Subscriber:Self Name:Ashly Briceño Subscriber ID:[id number] Payer ID:[id number] Group ID:Not on file Type:Medicare Address: [facility] J15 PART A [facility] [place] [address] [place] [address] [facility]LY [facility] Advance Directives For more information, please contact: [phone] * Full Code (Latest Code Status on File) Date Activated Date Inactivated Comments 01/30/2023 9:13 AM No automated chest compression devices for V[facility] Patients Care Teams Brickmason Supervisor Relationship Specialty Start Date End Date David Vazquez [address] [place] [address] PCP - General 01/24/23
[2025-02-16 09:13] LABS: Hematocrit 25.9 % (37.0-47.0); Hemoglobin 8.9 g/dL (12.2-16.2); Immature Granulocytes % 0 %; Mean Corpuscular HGB Conc 34.4 g/dL (31.8-35.4); Mean Corpuscular Hemoglobin 29.4 pg (27.0-31.2); Mean Corpuscular Volume 85.5 fl (81-99); Nucleated Red Blood Cells % 0 %; Red Blood Count 3.03 M/mm3 (4.20-5.40); Red Cell Distribution Width-SD 50.8 fL
[2025-02-16 09:21] LABS: White Blood Count 0.6 K/mm3 (4.8-10.8)
[2025-02-16 09:22] LABS: Alanine Aminotransferase 12 U/L (12-78); Albumin Level 3.5 g/dl (3.5-5.0); Albumin/Globulin Ratio 1.1 (1.1-1.8); Alkaline Phosphatase 49 U/L (38-126); Anion Gap 10.5 mEq/L (5-15); Aspartate Amino Transferase 20 U/L (14-36); Bilirubin,Total 0.9 mg/dl (0.2-1.3); Blood Urea Nitrogen 18 mg/dl (7-17); Calcium 9.2 mg/dl (8.4-10.2); Carbon Dioxide 22 mmol/L (22.0-30.0); Chloride 105 mmol/L (98-107); Creatinine Clearance Estimated 43 mL/min (50-200); Creatinine,Serum 0.90 mg/dl (0.52-1.04); Estimated Glomerular Filt Rate 61 ml/min (>60); GFR (African American) 74 ML/MIN (>60); Globulin 3.2 g/dL (1.3-3.2); Glucose 183 mg/dl (74-100); Platelet Count 27 K/mm3 (142-424); Potassium 3.5 mmoL/L (3.5-5.1); Sodium 134 mmol/L (136-145); Total Protein,Serum 6.7 g/dl (6.3-8.2)
[2025-02-16] MEDS: SODIUM CHLORIDE 0.9% 10ML FLUSH SYRINGE 10 ML IV (09:40)
[2025-02-16 10:24] LABS: Total Cells Counted 25
[2025-02-16 10:25] LABS: Hypochromasia 2+
== END 2025-02-16 23:59 | disposition home or self-care (01) ==
LOC: INF 08:58
PROVIDERS: PCP Family Medicine; Visit Provider Internal Medicine Medical Oncology
DX: C92.00 Acute myeloblastic leukemia, not having achieved remission (principal)
CPT/HCPCS: 36591; 80053; 85007; 85025; J1642

== ENCOUNTER 2025-02-18 08:58 | Outpatient (CLI) | payer MEDICARE, BC, SELFPAY ==
--- OUTSIDE RECORDS SUMMARY | 2025-01-12 08:30 | XMS_ITS | Encounter Summary ---
Author Organization Healthcare Address [address] [place] [address] Care Team Providers Care Delineator Name Role Phone Jevon Vazquez MD Primary Care Provider [phone] Reason for Visit * Reason Comments Labs Encounter Details Date Type Department Care Team ([facility] Contact Info) Description 01/12/2025 9:30 AM EDT Clinical Support [facility] Hematology/BMT and Cellular Therapy Program [address] [phone] Social History Tobacco Use Types Packs/Day Years [...] Hematology/BMT and Cellular Therapy Program [address] [phone] 03/03/2025 1:30 PM EST Office Visit [facility] Hematology/BMT and Cellular Therapy Program [address] [phone] Zonia Hoffman, UTILITY SALES REPRESENTATIVE 800 [facility] [address] [place] [phone] documented as of this encounter Visit Diagnoses Not on filedocumented in this encounter Additional Health Concerns Assessment Noted Time A fall risk assessment has been complete d for the patient 09/30/2024 9:33 AM EDT A Body Mass Index follow-up plan has been documented for the patient 05/28/2024 1:52 PM EST documented as of this encounter Care Teams Delineator Relationship Specialty Start Date End Date Jevon Vazquez MD [address] [place] [address] #1 #1 [place]SEP [place] [address] PCP - General 03/23/22 documented as of this encounter
--- OUTSIDE RECORDS SUMMARY | 2025-01-12 09:00 | XMS_ITS | Encounter Summary ---
Author Organization [facility] Address [address] [place] [address] Care Team Providers Care Deputy Clerk Of Court Name Role Phone Jeovn Vazquez MD Primary Care Provider [phone] Reason for Visit * Genetic Testing (Routine) - Authorized Specialty Diagnoses / Procedures Referred By Rebecca barron Referred To Contact Lab Diagnoses Myelodysplastic syndrome (CMS/HCC) Procedures Leukemia/Lymphoma - Immunophenotyping by Flow Cytometry New Mckinney MD [address] [facility] [address] [address] Phone: tel: fax: Referral ID Status Reason Start Date Expiration Date V isits Requested Visits Authorized [id number] Authorized 12/29/2024 06/30/2026 1 1 Encounter Details Date Type Department Care Team (Latest Contact Info) Description 01/12/2025 10:00 AM EDT Procedure Visit [facility] Hematology/BMT and Cellular Therapy Program [address] [phone] Rebecca Barrientos PA 800 [facility] [address] [address] Myelodysplastic syndrome (CMS/HCC); Acute myeloid [...] CC HEMATOLOGY/BMT AND CELLULAR THERAPY PROGRAM 800 [facility] [phone] / documented in this encounter Plan of Treatment Upcoming Encounters Date Type Department Care Team ([facility] st Contact Info) Description 03/03/2025 1:00 PM EST Clinical Support [facility] Hematology/BMT and Cellular Therapy Program [address] [phone] 03/03/2025 1:30 PM EST Office Visit [facility] Hematology/BMT and Cellular Therapy Program [address] [phone] Zonia Hoffman, RODDY 800 [facility] [address] [place] [phone] documented as of this encounter Procedures Procedure [...] Bone Marrow 01/20/2025 12:[address] [facility] Clinical Indication Myelodysplastic Syndrome 01/20/2025 12:[address] [facility] Specimen Adequacy Adequate 025 12:[address] [facility] Chromosome Analysis Result Giemsa-banded metaphase cells from unstimulated bone marrow cultures showed the following chromosome pattern: 43~44,X,-X,add(5)( q23),del(5)(q13q33 ),todd(7)ins?(7)(q1 1.2q11.2)t(7;12)(q 11.2;q13),-12,todd( 17)add(17)(p13.2)a dd(17)(q21)[16]/88 ,XX,idemx2[cp3]/46 ,XY[1] 01/20/2025 12:[address] [facility] Interpretation Abnormal female chromosome analysis. 95% of metaphase cells analyzed showed clonal abnormalities consistent with this patient's previous abnormal results (see [id number]). Clinical correlation is recommended. Note: Per [employer] ([employer]) requirement an additional karyotype was performed and charged due to the presence of clonal abnormalities. # cells counted = 20 # cells analyzed = 20 # cells karyotyped = 3 Band resolution: 400-450 01/20/2025 12:[address] [facility] Pathologist Signature Reviewed by: Corey Tejada 01/20/2025 12:[address] [facility] Bone Marrow Non-blood Collection / Unknown 01/12/2025 9:55 AM EDT 01/12/2025 12:37 PM EDT us New Mckinney MD LAB CYTOGENETICS ORDERABLES F inal Result [facility] [address] [place] [address] * Leukemia/Lymphoma - Immunophenotyping by Flow Cytometry (01/12/2025 9:55 AM EDT) Clinical Indication MDS 01/12/2025 4:[address] [facility] Flow Cytometry Interpretation APPROXIMATELY 27% MYELOID BLASTS EXPRESSING CD34, CD117, VARIABLE CD33, PARTIAL CD56, VARIABLE HLA-DR, PARTIAL DIM CD7, CD38 AND DIM CD45, SEE COMMENT, BBONE MARROW ASPIRATE. 01/12/2025 4:[address] [facility] Comments Specimen viability is 89%. Flow [...] surface light chains 01/12/2025 4:19 PM EDT [facility] Disclaimer This test was developed and its performance characteristics determined by the Immuno-Molecular Pathology Laboratory at the [facility]. It has not been cleared or [...] clinical laboratory testing. 01/12/2025 4:19 PM EDT [facility] Pathologist Signature Reviewed by: Asad Hartman MD 01/12/2025 4:[address] [facility] MRD Indicated Test Not Indicated 4:19 PM EDT [facility] Bone Marrow Specimen from bone marrow obtained by aspiration / Unknown Non-blood Collection / Unknown 01/12/2025 9:55 AM EDT 01/12/2025 1:48 PM EDT us New Mckinney MD LAB FLOW CYTOMETRY ORDERABLES Final Result [facility] [address] [place] [address] * Bone marrow exam (01/12/2025 9:55 AM EDT) Case Report Bone Marrow Case: [id number] Authorizing Provider: New Mckinney MD Collected: 01/12/2025 0955 Ordering Location: [facility] Hematology/BMT and Received: 01/12/2025 1143 Cellular Therapy Program Pathologist: Asad Hartman MD Specimens: A) - Bone Marrow Aspirate, left B) - Bone Marrow Biopsy, left C) - Peripheral Blood for Bone Marrow 5:[address] [facility] Cytogenetics Report, Addendum Chromosome Analysis Result: Giemsa-banded metaphase cells from unstimulated bone marrow cultures showed the following chromosome pattern: 43~44,X,-X,add(5)( q23),del(5)(q13q33 ),todd(7)ins?(7)(q1 1.2q11.2)t(7;12)(q 11.2;q13),-12,todd( 17)add(17)(p13.2)a dd(17)(q21)[16]/88 ,XX,idemx2[cp3]/46 ,XY[1] Interpretation: Abnormal female chromosome analysis. 95% of metaphase cells analyzed showed clonal abnormalities consistent with this patient's previous abnormal results (see [id number]). 5:[address] [facility] Addendum electronically signed by Asad Hartman MD on 01/23/2025 at 1716 EDT Final Diagnosis PERIPHERAL BLOOD AND BONE MARROW, LEFT POSTERIOR ILIAC CREST, (PERIPHERAL SMEAR, ASPIRATE SMEAR, AND CORE BIOPSY): - HYPOCELLULAR BONE MARROW WITH MARKEDLY DECREASED MEGAKARYOCYTES, DECREASED MATURING GRANULOPOIESIS, APPROXIMATELY 7-10% VARIABLY DISTRIBUTED BLASTS AND MORE THAN 50% RING SIDEROBLASTS, SEE COMMENT. 5:[address] [facility] at 0941 EDT Comment The discrepancy between blasts percentage by morphologic assessment and flow cytometric analysis is due to erythroid precursors that constitute majority of bone marrow cellularity and are removed by flow cytometry. 5:[address] [facility] Clinical Information MDS 01/14 5:[address] [facility] CBC and Differential PERIPHERAL BLOOD: 01/12/2025: [...] Platelets are decreased. 5:[address] [facility] Bone Marrow Differential BONE MARROW DIFFERENTIAL: 300 cells Normal Patient Neutrophils 15-50 12 Metamyelocytes 4-19 0 Myelocytes 1-18 1 Promyelocytes 1-8 0 Blasts 0-2 7 Monocytes 0-5 7 Erythroid 16-38 61 Lymphocytes 3-24 7 Eosinophils 0-6 3 Basophils 0-2 0 Plasma cells 0-4 2 Other 5:[address] [facility] Aspirate Smear The bone marrow aspirate [...] of erythroid precursors. 5:[address] [facility] Core Biopsy CELLULARITY: Variably cellular bone [...] trabeculae are normal. 5:[address] [facility] Special and Immunohistochemical Stains Immunohistochemica l [...] developed by and are performed at the [facility], [address] [place] [address]. All tests reported here, except those addressing [...] on decalcified specimens. 5:[address] [facility] Flow Cytometry Interpretation Flow cytometric analysis demonstrates approximately 27% population of myeloid blasts in this patient with history of myelodysplastic syndrome; expressing CD34, CD117, variable CD33, partial CD56, variable HLA-DR, partial dim CD7, CD38 and dim CD45 ([id number]). 5:[address] [facility] Gross Description B. LEFT A single specimen is received in formalin labeled bone marrow biopsy left posterior iliac crest and consists of 1 piece(s) of red/white tissue measuring 0.9 cm in length 0.2 cm in diameter. The specimen is submitted in to Histology for decalcification and routine processing. Cold Time: <1m 5:[address] [facility] Note: A resident was involved in the service. I attest I examined the relevant preparations for the specimens and confirmed the diagnosis or interpretation. 5:[address] [facility] Bone Marrow Peripheral blood specimen / Unknown Non-blood Collection / Unknown 01/12/2025 9:55 AM EDT 01/12/2025 11:43 AM EDT Bone marrow specimen (specimen) Specimen from bone marrow obtained by biopsy / Unknown 01/12/2025 9:55 AM EDT 01/12/2025 11:43 AM EDT Bone marrow specimen (specimen) Peripheral blood specimen / Unknown 01/12/2025 9:55 AM EDT 01/12/2025 11:43 AM EDT eNw Mckinney MD LAB PATHOLOGY ORDERABLES Edit ed Result - Final [facility] [address] [place] [address] * (ABNORMAL) CBC and Differential (01/12/2025 9:15 AM EDT) WBC Count 1.31(L) 3.70 - 10.30 10*3/uL LAB HEMATOLOGY METHOD 01/12/2025 9:58 AM EDT [facility] RBC Count 2.70(L) 3.90 - 5.20 10*6/uL LAB HEMATOLOGY METHOD 01/12/2025 9:58 AM EDT [facility] HGB 8.4(L) 11.2 - 15.7 g/dL LAB HEMATOLOGY METHOD 01/12/2025 9:58 AM EDT [facility] HCT 25.0(L) 34.0 - 45.0 % LAB HEMATOLOGY METHOD 01/12/2025 9:58 AM EDT [facility] Platelet Count 31(L) 155 - 369 10*3/uL LAB HEMATOLOGY METHOD 01/12/2025 9:58 AM EDT [facility] MCV 93 79 - 98 fL LAB HEMATOLOGY METHOD 01/12/2025 9:58 AM EDT [facility] MCH 31.1 26.0 - 32.0 pg LAB HEMATOLOGY METHOD 01/12/2025 9:58 AM EDT [facility] MCHC 33.6 30.7 - 35.5 g/dL LAB HEMATOLOGY METHOD 01/12/2025 9:58 AM EDT [facility] RDW 20.0(H) 11.5 - 14.5 % LAB HEMATOLOGY METHOD 01/12/2025 9:58 AM EDT [facility] MPV 8.8 8.8 - 12.5 fL LAB HEMATOLOGY METHOD 01/12/2025 9:58 AM EDT [facility] nRBC 3.1(H) <=0.0 per 100 WBCs LAB HEMATOLOGY METHOD 01/12/2025 9:58 AM EDT [facility] Differential Type Automated LAB HEMATOLOGY METHOD 01/12/2025 9:58 AM EDT [facility] Neutrophils % 19 % LAB HEMATOLOGY METHOD 01/12/2025 9:58 AM EDT [facility] Lymphocytes % 64 % LAB HEMATOLOGY METHOD 01/12/2025 9:58 AM EDT [facility] Monocytes % 15 % LAB HEMATOLOGY METHOD 01/12/2025 9:58 AM EDT [facility] Eosinophils % 2 % LAB HEMATOLOGY METHOD 01/12/2025 9:58 AM EDT [facility] Basophils % 0 % LAB HEMATOLOGY METHOD 01/12/2025 9:58 AM EDT [facility] Immature Granulocytes % 0 % LAB HEMATOLOGY METHOD 01/12/2025 9:58 AM EDT [facility] Neutrophils Absolute 0.25(LL) 1.60 - 6.10 10*3/uL LAB HEMATOLOGY METHOD 01/12/2025 9:58 AM EDT [facility] Lymphocytes Absolute 0.84(L) 1.20 - 3.90 10*3/uL LAB HEMATOLOGY METHOD 01/12/2025 9:58 AM EDT [facility] Monocytes Absolute 0.20(L) 0.30 - 0.90 10*3/uL LAB HEMATOLOGY METHOD 01/12/2025 9:58 AM EDT [facility] Eosinophils Absolute 0.02 0.00 - 0.50 10*3/uL LAB HEMATOLOGY METHOD 01/12/2025 9:58 AM EDT [facility] Basophils Absolute 0.00 0.00 - 0.10 10*3/uL LAB HEMATOLOGY METHOD 01/12/2025 9:58 AM EDT [facility] Immature Granulocytes Absolute 0.00 0.00 - 0.06 10*3/uL LAB HEMATOLOGY METHOD 01/12/2025 9:58 AM EDT [facility] Blood Blood sample taken from central line / Unknown (Port) Long-term Catheter / Unknown 01/12/2025 9:15 AM EDT 01/12/2025 9:31 AM EDT [facility] - 01/12/2025 9:58 AM EDT Therapeutic decision making should be based on absolute values, rather than percentages. us New Mckinney MD LAB BLOOD ORDERABLES Final Re sult [facility] [address] [place] [address] * (ABNORMAL) Comprehensive Metabolic Panel, Plasma (01/12/2025 9:15 AM EDT) Glucose, Plasma 121(H) 74 - 99 mg/dL 01/12/2025 10:[address] [facility] BUN, Plasma 24(H) 8 - 23 mg/dL 01/12/2025 10:[address] [facility] Creatinine, Plasma 1.19(H) 0.60 - 1.10 mg/dL 01/12/2025 10:[address] [facility] BUN/Creatinine Ratio 20 01/12/2025 10:[address] [facility] Sodium, Plasma 138 136 - 145 mmol/L 01/12/2025 10:[address] [facility] Potassium, Plasma 3.9 3.6 - 4.9 mmol/L 01/12/2025 10:[address] [facility] Chloride, Plasma 105 97 - 107 mmol/L 01/12/2025 10:[address] [facility] CO2, Plasma 21(L) 22 - 29 mmol/L 01/12/2025 10:[address] [facility] Anion Gap 12 6 - 16 mmol/L 01/12/2025 10:[address] [facility] Total Calcium, Plasma 9.7 8.9 - 10.2 mg/dL 01/12/2025 10:[address] [facility] Total Protein 6.1(L) 6.3 - 7.9 g/dL 01/12/2025 10:[address] [facility] Albumin, Plasma 3.9 3.5 - 5.2 g/dL 01/12/2025 10:[address] [facility] AST, Plasma 28 10 - 35 U/L 01/12/2025 10:[address] [facility] ALT, Plasma 12 10 - 35 U/L 01/12/2025 10:[address] [facility] Alkaline Phosphatase, Plasma 43(L) 46 - 142 U/L 01/12/2025 10:[address] [facility] Total Bilirubin, Plasma 0.5 0.2 - 1.1 mg/dL 01/12/2025 10:[address] [facility] eGFRcr 48.1 mL/min/1.7 3m*2 01/12/2025 10:[address] [facility] Comment:Reported eGFRcr in m L/min/1.73m2 is based the CKD-EPI 2020 equation that does not use a race coefficient. Blood Blood sample taken from central line / Unknown (Port) Long-term Catheter / Unknown 01/12/2025 9:15 AM EDT 01/12/2025 9:33 AM EDT us New Mckinney MD LAB BLOOD ORDERABLES Final Re sult [facility] [address] [place] [address] documented in this encounter Visit Diagnoses Diagnosis [...] as of this encounter Care Teams Deputy Clerk Of Court Relationship Specialty Start Date End Date Jevon Vazquez MD [address] [place] [address] #1 #1 [place] [id number] PCP - General 03/23/22 documented as of this encounter
--- OUTSIDE RECORDS SUMMARY | 2025-01-27 14:00 | XMS_ITS | Encounter Summary ---
Author Organization Healthcare Address [address] [place] [address] Care Team Providers Care Signs Cleaner Name Role Phone Jevon Vazquez MD Primary Care Provider [phone] Reason for Visit * Reason Comments Labs Port Flush Encounter Details Date Type Department Care Team ([facility] Contact Info) Description 01/27/2025 3:00 PM EDT Clinical Support [facility] Hematology/BMT and Cellular Therapy Program [address] [place] [phone] Oscar Cortez, RN Social History Tobacco Use Types Packs/Day Years [...] Care Team ([facility] Contact Info) Description 03/03/2025 1:00 PM EST Clinical Support [facility] Hematology/BMT and Cellular Therapy Program [address] [phone] 03/03/2025 1:30 PM EST Office Visit [facility] Hematology/BMT and Cellular Therapy Program [address] [phone] Zonia Hoffman, CONFIDENTIAL SECRETARY 800 [facility] [address] [place] [phone] documented as of this encounter Visit Diagnoses Not on filedocumented in this encounter Additional Health Concerns Assessment Noted Time A fall risk assessment has been complete d for the patient 01/27/2025 3:25 PM EDT A Body Mass Index follow-up plan has been documented for the patient 05/28/2024 1:52 PM EST documented as of this encounter Care Teams Signs Cleaner Relationship Specialty Start Date End Date Jevon Vazquez MD [address] [place] [address] #1 #1 [place] [phone] PCP - General 03/23/22 documented as of this encounter
--- OUTSIDE RECORDS SUMMARY | 2025-01-27 14:30 | XMS_ITS | Encounter Summary ---
Author Organization [facility] Address 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) New Mckinney MD [address] [address] Phone: tel: fax: Referral ID Status Reason Start Date Expiration Date V isits Requested Visits Authorized [id number] Authorized 04/16/2024 01/27/2026 1 1 * Consultation (Urgent) - Authorized Specialty Diagnoses / Procedures Referred By Contac t Referred To Contact Medical Oncology Diagnoses 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) New Mckinney MD [address] [address] Phone: tel: fax: [address] [address] Phone: tel: Referral ID Status Reason Start Date Expiration Date Visits Requested Visits Authorized [id number] Authorized Specialty Services Required 07/29/2026 1 1 * Consultation (Urgent) - Authorized Specialty Diagnoses / Procedures Referred By Contac t Referred To Contact Medical Oncology Diagnoses 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) New Mckinney MD 800 [facility] [address] [address] Phone: tel: fax: [facility] [address] [place] [address] Phone: tel: Referral ID Status Reason Start Date Expiration Date Visits Requested Visits Authorized [id number] Authorized Specialty Services Required 07/29/2026 1 1 Encounter Details Date Type Department Care Team (Latest Contact Info) Description 01/27/2025 3:30 PM EDT Office Visit [facility] Hematology/BMT and Cellular Therapy Program [address] [phone] New Mckinney MD 800 [facility] [address] [place] [phone] Encounter for antineoplastic immunotherapy (Primary Dx); Acute myeloid leukemia not having [...] Sign Reading Time Taken Comments Blood Pressure 117/70 01/27/2025 3:21 PM EDT Pulse 87 01/27/2025 3:21 PM EDT Temperature 36.3 C (97.4 F) 01/27/2025 3:21 PM EDT Respiratory Rate 16 01/27/2025 3:21 PM EDT Oxygen Saturation 100% 01/27/2025 3:21 PM EDT Inhaled Oxygen Concentration - - Weight 55.4 kg (122 lb 2.2 oz) 01/27/2025 3:21 P M EDT Height 162.6 cm (5' 4.02 ) 01/27/2025 3:21 PM ED T Body Mass Index 20.95 01/27/2025 3:21 PM EDT documented in this encounter Miscellaneous Notes * Progress Notes - Gerardo Pandey DO - 01/27/2025 3:30 PM EDT HEMATOLOGY ONCOLOGY NOTE Patient ID: Ashly Hernández is a 74 y.o. female. Referring Physician: No referring provider defined for this encounter. Primary Care Provider: Jevon Vazquez MD Chief Complaint: No chief complaint on file. Treatment Plan: Azacitidine Daily x 7 / Venetoclax Every 28 Days Subjective History of Present Illness: 74 y.o. female who presents for continued management of myelodysplastic syndrome/acute myeloid leukemia. Her history is as below: Current Outpatient Medications: acyclovir (Zovirax) 800 MG tablet, Take 1 tablet by mouth 2 times a day., Disp: 60 tablet, Rfl: 3 amLODIPine (Norvasc) 5 MG tablet, Take 1 tablet (5 mg) by mouth daily., Disp: , Rfl: fenofibrate (Tricor) 145 MG tablet, Take 1 tablet (145 mg) by mouth daily., Disp: , Rfl: fluconazole (Diflucan) 200 MG tablet, Take 2 tablets by mouth daily., Disp: 60 tablet, Rfl: 3 levoFLOXacin (Levaquin) 500 MG tablet, Take 1 tablet by mouth daily., Disp: 30 tablet, Rfl: 3 pioglitazone (Actos) 30 MG tablet, Take 1 tablet (30 mg) by mouth daily., Disp: , Rfl: potassium chloride CR (K-Tab) 20 MEQ ER tablet, Take 1 tablet by mouth twice daily, Disp: 60 tablet, Rfl: 0 rosuvastatin (Crestor) 5 MG tablet, TAKE 1 TABLET BY MOUTH ONCE DAILY AT NIGHT, Disp: 90 tablet, Rfl: 0 lidocaine-prilocaine (Emla) 2.5-2.5 % cream, Please apply to port area 30-45 min prior to access (Patient not taking: Reported on 01/12/2025), Disp: 30 g, Rfl: 2 prochlorperazine (Compazine) 10 MG tablet, Take 1 tablet (10 mg) by mouth every 6 (six) hours if needed for nausea or vomiting. (Patient not taking: Reported on 01/27/2025), Disp: 30 tablet, Rfl: 5 venetoclax (Venclexta) 100 MG tablet, Take 2 tablets (200 mg) by mouth 1 (one) time each day. Take on days 1 - 21 (7 days off) of a 28 day cycle. (Patient not taking: Reported on 01/27/2025), Disp: 42 tablet, Rfl: 0 History: Oncology History Overview Note 09/2023- routine labs showed mild pancytopenia, with a WBC 2.3 k/??L, Hb 10.2 g/dL, and platelets of70 k/??L. 12/2023- seen by Dr. Manzano in [facility] for evaluation of anemia and lymphocytosis. [...] interphase cells examined show a deletion of [id number]. Next generation sequencing: Abnormal: TP53 (c.814G>A; p.Tdl208Wfo) frequency 45%, DMNT3A (c.1522delC; p.[id number]) frequency 48%, RUNX1 (c.336_338delGCC; p.Mwb077ozn) frequency 35% Azacitidine + Venetoclax Cycle 1: 02/05/24 (Bhumika 70 mg PO D1-21, Aza 75 mg/m2 IV D1-7) 02/25/24 C1D21 Bone marrow biopsy: Hypercellular erythroid predominant maturing hematopoiesis, approx 2-3% blasts Flow: predominant T-Cells, no evidence of increased blasts, abnormal lymphoid populations. Karyotype: 44~45, X,-X,del(5)(q13q33), todd(7)ins?(7)(q11.2q11.2)t(7;12)(q11.2;q13), -12,todd(17)add(1 7)(p13.2)add(17)(q21),+mar[cp6]/44~45,X,-X,del(5)(q13q33),todd(7)t(7;12)(q11.2;q1 3),-12,todd(17)add(17)(p13.2)add(17)(q21),+mar[cp4]/46,XX[10] Cycle 2: 03/22/24 (Bhumika 200 mg PO D1-21, Aza 75 mg/m2 [...] History: Ms. Ashly Hernández presents to clinic 01/27/2025 with her for followup. She ahs had worseneing fatigue. Denies fever or infection, shortness of breath, n/v/d, weight loss. She has B/L shoulder pain. Review of Systems 14- point ROS is reviewed and negative except in HPI. Objective Physical Exam: Vitals: 01/27/25 1521 BP: 117/70 Pulse: 87 Resp: 16 Temp: 36.3 ??C (97.4 ??F) SpO2: 100% Physical Examination: Physical Exam: Gen: NAD, chronically ill appearing and nontoxic. Alert and conversant. Eyes: No scleral icterus, normal conjunctivae HENT: Hearing normal, dentition normal. Mucus membranes are moist. Neck: supple, normal ROM. CV: warm and well perfused Resp: effort normal, breathing comfortably on room air GI: Abdomen is grossly nondistended MSK: No clubbing or cyanosis. Normal muscle tone. Skin: Warm, dry, no rash, no erythema, not diaphoretic, + pallor Neuro: No gross neurologic deficits. Psych: mood and affect normal, judgment and insight appear normal. Performance Status: Symptomatic; fully ambulatory 70, Cares for self; unable to carry on normal activity or to do active work (ECOG equivalent 1) Pain Scale: 0 Assessment/Plan Myelodysplastic syndrome/acute myeloid leukemia with complex cytogenetics and TP53 mutation Ms. 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 She first presented in September 2023 with mild pancytopenia and was later found tohave circulating and marrow blasts with multilineage dysplasia, complex cytogenetics, and pathogenic mutations in TP53, DNMT3A, and RUNX1. She began azacitidine/venetoclax induction in January 2024, achieving morphologic remission but complicated by severe, persistent pancytopenia and marrow aplasia by May 2024. Despite treatment holidays, she had ongoing severe thrombocytopenia and by September 2024 marrow biopsies showed persistent aplasia with molecular evidence of TP53 and DNMT3A mutations.In December 2024, marrow again showed hypocellularity with 7-10% blasts and >50% ring sideroblasts, consistent with persistent, high-risk disease. I discussed with Ms. Toledo and her the significance of her relapsed disease. We reviewed that the presence of multi-hit TP53 mutations is associated with a very poor prognosis, with disease that is inherently resistant to most available therapies. Although an allogeneic transplant could theoretically be considered, we discussed that the risk of relapse after transplant in the setting of TP53 mutations is extremely high, and given her age, the likelihood of meaningful long-term benefit is very limited. We discussed treatment options with the patient and her as noted below. Re-challenge with Aza/bhumika, although given previous exposure to Aza, she may be refractory. Switching to decitabine, which be be given IV days 1-5 or days 1-10, or orally. Referral for clinical trial - She agreed to start Inqovi (decitabine and cedazuridine) 5x/week monthly. - Will send referrals to [facility] and [place] for clinical trial evaluations. 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 Check CBC x 3 times/week at [facility] Labs reviewed today, Hgb 7.7 , [...] S/p port placement. Routine care per protocol Gerardo Pandey D.O. Hematology and Oncology Fellow [facility] [[email or web address] Patient care and management discussed with attending, Dr. Mckinney Cosigned by New Mckinney MD at 01/29/2025 11:55 AM EDT Associated attestation - New Mckinney MD - 01/29/2025 11:55 AM EDT I saw and evaluated the patient with the resident/fellow. I discussed the case with the resident/fellow and agree with the findings and plan as documented. Ms. Toledo is a 73-year-old female with MDS/AML harboring multi-hit TP53 mutations, initially treated with azacitidine/venetoclax achieving remission but complicated by prolonged marrow aplasia and persistent thrombocytopenia. Despite transient remission, she has now relapsed with hypocellular marrow and 7-10% blasts. We reviewed with the patient and her the significance of multi-hit TP53 disease, which is associated with a dismal prognosis and resistance to standard therapies. While allogeneic transplant was discussed, the risk of post-transplant relapse in this molecular context is extremely high, and her older age further limits the likelihood of meaningful benefit. The patient and her are obviously distraught, but understand that therapeutic options are limited, and [id number]-[id number] discussions remain essential moving forward. We will start oral decitabine and refer to [place] and [facility] for clinical trial evaluations * Progress Notes - Judit Higuera, PharmD - 01/27/2025 3:30 PM EDT Pharmacy Hematology/Oncology Treatment Plan Note Ashly Hernández is a 74 y.o. female with AML. Cancer Staging No matching staging information was found for the patient. Study Patient: No Treatment Plan reviewed for decitabine/cedazuridine [x] Follow-Up Clinical Review for Cycle 1 Interval History: BMBx from 01/12 shows 7-10% blasts. Patient has been off treatment due to cytopenias since 03/2024. Due to length of travel time patient is interested in treatment with decitabine/cedazuridine. Today's Wt: Wt Readings from Last 1 Encounters: 01/27/25 55.4 kg (122 lb 2.2 oz) Dosing Wt: n/a Dosing Ht: n/a DosingBSA: n/a Recent Labs: Lab Results Component Value Date WBC 1.22 (L) 01/27/2025 NEUTROABS 0.11 (LL) 01/27/2025 HGB 8.9 (L) 01/27/2025 PLT 23 (L) 01/27/2025 Lab Results Component Value Date GLUCOSE 121 (H) 01/12/2025 NA 138 01/12/2025 K 3.9 01/12/2025 MG 1.8 (L) 02/05/2024 CALCIUM 9.7 01/12/2025 PHOS 2.8 02/05/2024 URATECRYU 1.3 (L) 02/05/2024 BUN 24 (H) 01/12/2025 CREATININE 1.19 (H) 01/12/2025 Lab Results Component Value Date AST 28 01/12/2025 ALT 12 01/12/2025 ALKPHOS 43 (L) 01/12/2025 BILITOT 0.5 01/12/2025 No results found for: TSH Visit Vitals BP 117/70 (BP Location: Left arm, Patient Position: Sitting, BP Cuff Size: Adult) Pulse 87 Temp 36.3 ??C (97.4 ??F) (Temporal) Resp 16 Other Relevant Monitoring: Lab Results Component Value Date HEPBSAG Negative 01/07/2024 HEPBCAB Negative 01/07/2024 HIV Non Reactive 01/07/2024 Treatment Plan: Decitabine/cedazuridine 35 mg/100 mg PO Days 1-5 Every 28 days [x] No dose adjustments Current Treatment Plan History: Decitabine/cedazuridine initiated 01/2025 Prior Treatment History: Azacitidine + Venetoclax Cycle 1: 02/05/24 Cycle 2: 03/22/24 Assessment/Plan: Rx sent to [facility]. Refills due 02/2025. Patient will return to clinic in 5 weeks. Will follow-up at that time. * Progress Notes - Judit Higuera PharmD - 01/27/2025 3:30 PM EDT Pharmacy Hematology/Oncology Patient Education Note I counseled the patient on their chemotherapy regimen, which was scheduled to start January 2025. The chemotherapy agents that this patient is scheduled to receive include: decitabine/cedazuridine. Iprovided the patient with a written explanation of the drugs contained in the regimen and their expected side effects, toxicities, and adverse reactions. I provided verbal explanation of the same material and provided methods for self-monitoring. I answered all questions that the patient and caregiver had. The patient and caregiver demonstrated understanding of the material, and wished to proceedwith the treatment. documented in this encounter Plan of Treatment Upcoming Encounters Date Type Department Care Team ([facility] st Contact Info) Description 03/03/2025 1:00 PM EST Clinical Support [facility] Hematology/BMT and Cellular Therapy Program [address] [phone] 03/03/2025 1:30 PM EST Office Visit [facility] Hematology/BMT and Cellular Therapy Program [address] [phone] Zonia Hoffman, HIDE SELECTOR 800 [facility] [address] [place] [phone] Scheduled Referrals Name Type Priority Associated Diagnoses Order Schedule Ambulatory referral to Hematology Oncology/Medical Oncology Outpatient Referral Routine 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) Expected: 01/27/2025 (Approximate), Expires: 07/31/2026 Ambulatory referral to Hematology Oncology/Medical Oncology Outpatient Referral Routine 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) Expected: 01/27/2025 (Approximate), Expires: 07/31/2026 documented as of this encounter Procedures Procedure Name Priority Date/Time Associated Diagnosis Comments CBC WITH AUTO DIFFERENTIAL Routine 01/27/2025 3:00 PM EDT 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) COMPREHENSIVE METABOLIC PANEL, PLASMA Routine 01/27/2025 3:00 PM EDT 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) documented in this encounter Results * (ABNORMAL) Comprehensive Metabolic Panel, Plasma (01/27/2025 3:00 PM EDT) Glucose, Plasma 89 74 - 99 mg/dL 01/27/2025 4:26 PM EDT [facility] BUN, Plasma 22 8 - 23 mg/dL 01/27/2025 4:26 PM EDT [facility] Creatinine, Plasma 1.10 0.60 - 1.10 mg/dL 01/27/2025 4:26 PM EDT [facility] BUN/Creatinine Ratio 20 01/27/2025 4:26 PM EDT [facility] Sodium, Plasma 138 136 - 145 mmol/L 01/27/2025 4:26 PM EDT [facility] Potassium, Plasma 4.6 3.6 - 4.9 mmol/L 01/27/2025 4:26 PM EDT [facility] Chloride, Plasma 106 97 - 107 mmol/L 01/27/2025 4:26 PM EDT [facility] CO2, Plasma 22 22 - 29 mmol/L 01/27/2025 4:26 PM EDT [facility] Anion Gap 10 6 - 16 mmol/L 01/27/2025 4:26 PM EDT [facility] Total Calcium, Plasma 9.6 8.9 - 10.2 mg/dL 01/27/2025 4:26 PM EDT [facility] Total Protein 6.2(L) 6.3 - 7.9 g/dL 01/27/2025 4:26 PM EDT [facility] Albumin, Plasma 3.9 3.5 - 5.2 g/dL 01/27/2025 4:26 PM EDT [facility] AST, Plasma 33 10 - 35 U/L 01/27/2025 4:26 PM EDT [facility] ALT, Plasma 11 10 - 35 U/L 01/27/2025 4:26 PM EDT [facility] Alkaline Phosphatase, Plasma 43(L) 46 - 142 U/L 01/27/2025 4:26 PM EDT [facility] Total Bilirubin, Plasma 0.5 0.2 - 1.1 mg/dL 01/27/2025 4:26 PM EDT [facility] eGFRcr 52.8 mL/min/1.7 3m*2 01/27/2025 4:26 PM EDT [facility] Comment:Reported eGFRcr in m L/min/1.73m2 is based the CKD-EPI 2020 equation that does not use a race coefficient. Blood Blood sample taken from central line / Unknown (Port) Long-term Catheter / Unknown 01/27/2025 3:00 PM EDT 01/27/2025 3:54 PM EDT us New Mckinney MD LAB BLOOD ORDERABLES Final Re sult [facility] [address] [place] [address] * (ABNORMAL) CBC and Differential (01/27/2025 3:00 PM EDT) WBC Count 1.22(L) 3.70 - 10.30 10*3/uL LAB HEMATOLOGY METHOD 01/27/2025 3:21 PM EDT [facility] RBC Count 2.90(L) 3.90 - 5.20 10*6/uL LAB HEMATOLOGY METHOD 01/27/2025 3:21 PM EDT [facility] HGB 8.9(L) 11.2 - 15.7 g/dL LAB HEMATOLOGY METHOD 01/27/2025 3:21 PM EDT [facility] HCT 26.3(L) 34.0 - 45.0 % LAB HEMATOLOGY METHOD 01/27/2025 3:21 PM EDT [facility] Platelet Count 23(L) 155 - 369 10*3/uL LAB HEMATOLOGY METHOD 01/27/2025 3:21 PM EDT [facility] MCV 91 79 - 98 fL LAB HEMATOLOGY METHOD 01/27/2025 3:21 PM EDT [facility] MCH 30.7 26.0 - 32.0 pg LAB HEMATOLOGY METHOD 01/27/2025 3:21 PM EDT [facility] MCHC 33.8 30.7 - 35.5 g/dL LAB HEMATOLOGY METHOD 01/27/2025 3:21 PM EDT [facility] RDW 17.7(H) 11.5 - 14.5 % LAB HEMATOLOGY METHOD 01/27/2025 3:21 PM EDT [facility] MPV 9.0 8.8 - 12.5 fL LAB HEMATOLOGY METHOD 01/27/2025 3:21 PM EDT [facility] nRBC 2.5(H) <=0.0 per 100 WBCs LAB HEMATOLOGY METHOD 01/27/2025 3:21 PM EDT [facility] Differential Type Automated LAB HEMATOLOGY METHOD 01/27/2025 3:21 PM EDT [facility] Neutrophils % 9 % LAB HEMATOLOGY METHOD 01/27/2025 3:21 PM EDT [facility] Lymphocytes % 78 % LAB HEMATOLOGY METHOD 01/27/2025 3:21 PM EDT [facility] Monocytes % 12 % LAB HEMATOLOGY METHOD 01/27/2025 3:21 PM EDT [facility] Eosinophils % 1 % LAB HEMATOLOGY METHOD 01/27/2025 3:21 PM EDT [facility] Basophils % 0 % LAB HEMATOLOGY METHOD 01/27/2025 3:21 PM EDT [facility] Immature Granulocytes % 0 % LAB HEMATOLOGY METHOD 01/27/2025 3:21 PM EDT [facility] Neutrophils Absolute 0.11(LL) 1.60 - 6.10 10*3/uL LAB HEMATOLOGY METHOD 01/27/2025 3:21 PM EDT [facility] Lymphocytes Absolute 0.95(L) 1.20 - 3.90 10*3/uL LAB HEMATOLOGY METHOD 01/27/2025 3:21 PM EDT [facility] Monocytes Absolute 0.15(L) 0.30 - 0.90 10*3/uL LAB HEMATOLOGY METHOD 01/27/2025 3:21 PM EDT [facility] Eosinophils Absolute 0.01 0.00 - 0.50 10*3/uL LAB HEMATOLOGY METHOD 01/27/2025 3:21 PM EDT [facility] Basophils Absolute 0.00 0.00 - 0.10 10*3/uL LAB HEMATOLOGY METHOD 01/27/2025 3:21 PM EDT [facility] Immature Granulocytes Absolute 0.00 0.00 - 0.06 10*3/uL LAB HEMATOLOGY METHOD 01/27/2025 3:21 PM EDT [facility] Blood Blood sample taken from central line / Unknown (Port) Long-term Catheter / Unknown 01/27/2025 3:00 PM EDT 01/27/2025 3:12 PM EDT Narrative [facility] - 01/27/2025 3:21 PM EDT Therapeutic decision making should be based on absolute values, rather than percentages. 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
[2025-02-18] VITALS (17 sets, daily range): BP systolic 111–130; BP diastolic 45–67; PULSE 70–80; RESP 18–20; TEMP 36.3–36.5; O2SAT 99–100; BMI 20.9
--- OUTSIDE RECORDS SUMMARY | 2025-02-18 09:06 | XMS_ITS ---
Author Organization Healthcare Address [address] [place] [address] Care Team Providers Care Plant Protection Supervisor Name Role Phone Jevon Vazquez MD [...]
--- OUTSIDE RECORDS SUMMARY | 2025-02-18 09:06 | XMS_ITS | Encounter Summary ---
Author Organization [facility] Address [address] [place] [address] Care Team Providers Care Machine Shop Instructor Name Role Phone Jevon Vazquez MD Primary Care Provider [phone] Reason for Visit * Reason Comments Med Refill Encounter Details Date Type Department Care Team ([facility] Contact Info) Description 01/30/2024 Refill [facility] CC Hematology/BMT and Cellular Therapy Program [address] [phone] [place] MD 800 [facility] [address] [place] [phone] Social History Tobacco Use Types Packs/Day Years [...] ([facility] Contact Info) Description 03/03/2025 1:00 PM EST Clinical Support [facility] CC Hematology/BMT and Cellular Therapy Program [address] [phone] 03/03/2025 1:30 PM EST Office Visit [facility] CC Hematology/BMT and Cellular Therapy Program [address] [phone] Zonia Hoffman, CLAM BED WORKER 800 [facility] [address] [place] [address] documented as of this encounter Visit Diagnoses Not on filedocumented in this encounter Additional Health Concerns Assessment Noted Time A fall risk assessment has been complete d for the patient 01/11/2024 9:16 AM EDT A Body Mass Index follow-up plan has been documented for the patient 01/21/2024 6:16 AM EDT documented as of this encounter Care Teams Machine Shop Instructor Relationship Specialty Start Date End Date Jevon Vazquez MD [address] [place] [address] #1 #1 [place] [address] PCP - General 03/23/22 documented as of this encounter
--- OUTSIDE RECORDS SUMMARY | 2025-02-18 09:06 | XMS_ITS | Encounter Summary ---
Author Organization [facility] Address [address] [place] [address] Care Team Providers Care Stemhole Borer And Topper Name Role Phone Jevon Vazquez MD Primary Care Provider [phone] Reason for Visit * Reason Comments Med Refill Encounter Details Date Type Department Care Team ([facility] Contact Info) Description 02/02/2025 Refill [facility] CC Hematology/BMT and Cellular Therapy Program [address] [phone] Zonia Hoffman, DOLL WIGS HACKLER 800 [facility] [address] [place] [phone] Social History Tobacco Use Types Packs/Day Years [...] ([facility] Contact Info) Description 03/03/2025 1:00 PM EST Clinical Support [facility] CC Hematology/BMT and Cellular Therapy Program [address] [phone] 03/03/2025 1:30 PM EST Office Visit [facility] CC Hematology/BMT and Cellular Therapy Program [address] [phone] Zonia Hoffman, DOLL WIGS HACKLER 800 [facility] [address] [place] [address] documented as of this encounter Visit Diagnoses Not on filedocumented in this encounter Additional Health Concerns Assessment Noted Time A fall risk assessment has been complete d for the patient 01/27/2025 3:25 PM EDT A Body Mass Index follow-up plan has been documented for the patient 05/28/2024 1:52 PM EST documented as of this encounter Care Teams Stemhole Borer And Topper Relationship Specialty Start Date End Date Jevon Vazquez MD [address] [place] [address] #1 [address]1 [place] [address] PCP - General 03/23/22 documented as of this encounter
--- OUTSIDE RECORDS SUMMARY | 2025-02-18 09:07 | XMS_ITS | Encounter Summary ---
Author Organization Healthcare Address [address] [place] [address] Care Team Providers Care Manager Sterile Processing Name Role Phone Jevon Vazquez MD Primary Care Provider [phone] Encounter Details Date Type Department Care Team [...] Hematology/BMT and Cellular Therapy Program [address] [phone] 03/03/2025 1:30 PM EST Office Visit [facility] CC Hematology/BMT and Cellular Therapy Program [address] [phone] Zonia Hoffmna, CELL REPAIRER 800 [facility] [address] [place] [phone] documented as of this encounter Visit Diagnoses Not on filedocumented in this encounter Additional Health Concerns Assessment Noted Time A fall risk assessment has been complete d for the patient 09/30/2024 9:33 AM EDT A Body Mass Index follow-up plan has been documented for the patient 05/28/2024 1:52 PM EST documented as of this encounter Care Teams Manager Sterile Processing Relationship Specialty Start Date End Date Jevon Vazquez MD [address] [place] [address] #1 #1 [place] [address] PCP - General 03/23/22 documented as of this encounter
--- OUTSIDE RECORDS SUMMARY | 2025-02-18 09:07 | XMS_ITS | Encounter Summary ---
Author Organization Healthcare Address [address] [place] [address] Care Team Providers Care Telecommunications Line Mechanic Name Role Phone Jevon Vazquez MD Primary Care Provider [phone] Encounter Details Date Type Department Care Team [...] Hematology/BMT and Cellular Therapy Program [address] [phone] 03/03/2025 1:30 PM EST Office Visit [facility] CC Hematology/BMT and Cellular Therapy Program [address] [phone] Zonia Hoffman, NUT CHOPPER 800 [facility] [address] [place] [phone] documented as of this encounter Visit Diagnoses Not on filedocumented in this encounter Additional Health Concerns Assessment Noted Time A fall risk assessment has been complete d for the patient 09/30/2024 9:33 AM EDT A Body Mass Index follow-up plan has been documented for the patient 05/28/2024 1:52 PM EST documented as of this encounter Care Teams Telecommunications Line Mechanic Relationship Specialty Start Date End Date Jevon Vazquez MD [address] [place] [address] #1 #1 [place] [address] PCP - General 03/23/22 documented as of this encounter
--- OUTSIDE RECORDS SUMMARY | 2025-02-18 09:07 | XMS_ITS | Clinical Summary ---
Author Organization [facility] Address [address] [place] [address] Care Team Providers Care Tennis Ball Coverer Hand Name Role Phone David Vazquez Primary Care Provider [phone] Allergies No known active allergies Medications atorvastatin [...] Discontinued 01/24/2023 Medical Devices Implanted Type Area Care Connector Device Identifier Shelf Expiration Date Model / Serial / Lot Mis Ply Scr 6.5x50mm - [id number] Implanted:Qty : 1 on 01/30/2023 by Ivan Bartholomew MD at [facility] Screw N/A: Spine Lumbar [employer] [id number] / / Mis Ply Scr 6.5x45mm - [id number] Implanted:Qty : 3 on 01/30/2023 by Ivan Bartholomew MD at [facility] Screw N/A: Spine Lumbar [employer] [id number] / / Reline Mas Reduction Screw 7.5x45 - [id number] Implanted:Qty : 2 on 01/30/2023 by Ivan Bartholomew MD at [facility] Screw N/A: Spine Lumbar [employer] [id number] / / Grft Dbm Vesuvius Putty 5cc - [id number] Implanted:Qty : 1 on 01/30/2023 by Ivan Bartholomew MD at [facility] [employer] [id number] 04/20/2025 [id number] P / [id number] / Putty I-Factor 5.0cc - [id number] Implanted:Qty : 1 on 01/30/2023 by Ivan Bartholomew MD at [facility] N/A: Spine Lumbar [employer] 03/15/2025 [id number] / / [id number] Modulus Xlw [id number] 10 Degree - [id number] Implanted:Qty : 1 on 01/30/2023 by Ivan Bartholomew MD at [facility] N/A: Spine Lumbar [employer] [id number] / / [id number] Modulus Xlw [id number] - [id number] Implanted:Qty : 1 on 01/30/2023 by Ivan Bartholomew MD at [facility] N/A: Spine Lumbar [employer] 09/28/2027 [id number] / / [id number] Reln Lock Scr 5.5mm Opn Tulip - [id number] Implanted:Qty : 6 on 01/30/2023 by Ivan Bartholomew MD at [facility] N/A: Spine Lumbar [employer] [id number] / / Reln Mas Ti Petar 5.5x70mm - [id number] Implanted:Qty : 2 on 01/30/2023 by Ivan Bartholomew MD at [facility] N/A: Spine Lumbar [employer] [id number] / / Procedures Procedure Name Priority Date/Time [...] LAB Glucose 125(H) 71 - 99 mg/dL [facility] Comment:Reference range (71- [...] mL/min/1.73m2. Calcium 10.3 8.5 - 10.5 mg/dL [facility] BUN/Creatinine Ratio 14 [facility] Serum 01/24/2023 2:32 PM EDT 01/24/2023 5:54 PM EDT Lexi SUAREZ CHEMISTRY ORDERABLES Final Resu lt [facility] [address] from Last 3 Months or Most Recently Relevant to Health Maintenance Insurance MEDICARE Member Subscriber Plan / Payer (Ef fective 2016-Present) Name:Ashly Briceño Member ID:[id number] Relation to Subscriber:Self Name:Ashly Briceño Subscriber ID:[id number] Payer ID:[id number] Group ID:Not on file Type:Medicare Address: [facility] [place] PART A [facility] [place] [address] [place] [address] [facility] Advance Directives For more information, please contact: [phone] * Full Code (Latest Code Status on File) Date Activated Date Inactivated Comments 01/30/2023 9:13 AM No automated chest compression devices for VAD Patients Care Teams Tennis Ball Coverer Hand Relationship Specialty Start Date End Date David Vazquez [address] [place] [address] PCP - General 01/24/23
--- OUTSIDE RECORDS SUMMARY | 2025-02-18 09:07 | XMS_ITS | Clinical Summary ---
Author Organization [facility] Address [address] [place] [address] Care Team Providers Care Scaffold Worker Name Role Phone Jevon Vazquez MD Primary Care Provider [phone] Allergies No known active allergies Medications amLODIPine [...] twice daily 60 tablet 02/03/20 25 Active magic mouthwash (lidocaine, diphenhydramin e, Maalox 1:1:1) Swish and swallow 10 mL every 4 hours as needed for mucositis (mouth sores). Swish and swallow 120 mL 2 02/17/20 25 Active potassium chloride CR (K-Tab) 20 [...] Encounters Date Type Department Care Team Description 02/16/2025 Orders Only [facility] Hematology/BMT and Cellular Therapy Program [address] [phone] 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, RN 02/02/2025 Refill [facility] Therapy [facility] [address] [phone] Zonia Hoffman, ELECTRIC CLOCK MECHANIC 01/28/2025 Telephone [facility] Therapy [facility] [address] [phone] New Mckinney MD 01/27/2025 3:30 PM EDT Office Visit [facility] H[facility]ology/BMT and Cellular Therapy Program [address] [place] [phone] New Mckinney MD Encounter for antineoplastic immunotherapy (Primary Dx); 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); Immunosuppressed status (CMS/HCC) 01/27/2025 3:00 PM EDT Clinical Support [facility] Hematology/BMT and Cellular Therapy Program [address] [place] [phone] Oscar Cortez, RN 01/27/2025 Telephone [facility] [address] [place] [address] Emil Hardy, PharmD 01/27/2025 Telephone [facility] Hematology[facility]BMT and Cellular Therapy Program [address] [place] [phone] Alyson Vivas RN 01/27/2025 Travel 01/20/2025 Travel 01/16/2025 Telephone [facility] Cellular Therapy [facility] [address] [place] [phone] Daxa Elliott, AKBAR 01/12/2025 10:00 AM EDT Procedure Visit [facility]ology[facility]BMT and Cellular Therapy Program [address] [place] [phone] Rebecca Barrientos PA Myelodysplastic syndrome (CMS/HCC); 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) 01/12/2025 9:30 AM EDT Clinical Support [facility]ology[facility]BMT [facility] Cellular Therapy Program [address] [place] [phone] 01/12/2025 Travel 01/07/2025 Travel 01/07/2025 Telephone [facility] Cellular Therapy [facility] [address] [place] [phone] Sabine Clemons MD 01/07/2025 Refill [facility]BMT [facility] Cellular Therapy Program [address] [phone] Zonia Hoffman, ELECTRIC CLOCK MECHANIC 01/05/2025 Travel 01/05/2025 Refill [facility]ology[facility]BMT [facility] Cellular Therapy Program [address] [phone] Zonia Hoffman, ELECTRIC CLOCK MECHANIC 12/29/2024 Orders Only [facility]ology/BMT and Cellular Therapy Program [address] [phone] New Mckinney MD Myelodysplastic syndrome (CMS/HCC) (Primary Dx) 12/29/2024 Telephone [facility]BMT [facility] Cellular Therapy Program [address] [phone] Bibiana Sepulveda, ELECTRIC CLOCK MECHANIC 12/28/2024 Travel 12/26/2024 Travel 12/25/2024 Travel 12/24/2024 Travel 12/23/2024 Travel 12/11/2024 Telephone [facility] Cellular Therapy [facility] [address] [phone] New Mckinney MD 12/10/2024 Travel 12/09/2024 Refill [facility]BMT [facility] Cellular Therapy Program [address] [place] [phone] Zonia Hoffman, ELECTRIC CLOCK MECHANIC 11/27/2024 Telephone [facility]ology[facility]BMT and Cellular Therapy Program [address] [phone] Zonia Hoffman, ELECTRIC CLOCK MECHANIC 11/26/2024 Travel 11/25/2024 Travel 11/24/2024 Travel 11/23/2024 Travel 11/22/2024 Travel from Last 3 Months Immunizations Immunization [...] Upcoming Encounters Date Type Department Care Team ([facility] st Contact Info) Description 03/03/2025 1:00 PM EST Clinical Support [facility] Hematology/BMT and Cellular Therapy Program [address] [phone] 03/03/2025 1:30 PM EST Office Visit [facility] Hematology/BMT and Cellular Therapy Program [address] [phone] Zonia Hoffman, ELECTRIC CLOCK MECHANIC 800 [facility] [address] [place] [phone] Health Maintenance Due Date Last Done Comments [...] 05/16/2023 03/21/2023 UKY-Bone Density Scan 07/25/2024 07/25/2022 [id number] Vaccine ( - 2024- season) 2024 02/18/2021, 07/10/2020, 06/12/2020 [...] this topic Medical Devices Implanted Type Area Youth Development Specialist Device Identifier Shelf Expiration Date Model / Serial / Lot Port Clearvue Power 8fr - [id number] Implanted:Qty: 1 on 01/21/2024 by Ness Sargent MD at [facility] Peripherial [id number] / / Procedures Procedure Name Priority Date/Time [...] LAB HEMATOLOGY METHOD 01/27/2025 3:21 PM EDT [facility] RBC Count 2.90(L) 3.90 - 5.20 10*6/uL LAB HEMATOLOGY METHOD 01/27/2025 3:21 PM EDT [facility] HGB 8.9(L) 11.2 - 15.7 g/dL LAB HEMATOLOGY METHOD 01/27/2025 3:21 PM EDT [facility] HCT 26.3(L) 34.0 - 45.0 % LAB HEMATOLOGY METHOD 01/27/2025 3:21 PM EDT [facility] Platelet Count 23(L) 155 - 369 10*3/uL LAB HEMATOLOGY METHOD 01/27/2025 3:21 PM EDT [facility] MCV 91 79 - 98 fL LAB HEMATOLOGY METHOD 01/27/2025 3:21 PM EDT [facility] MCH 30.7 26.0 - 32.0 pg LAB HEMATOLOGY METHOD 01/27/2025 3:21 PM EDT [facility] MCHC 33.8 30.7 - 35.5 g/dL LAB HEMATOLOGY METHOD 01/27/2025 3:21 PM EDT [facility] RDW 17.7(H) 11.5 - 14.5 % LAB HEMATOLOGY METHOD 01/27/2025 3:21 PM EDT [facility] MPV 9.0 8.8 - 12.5 fL LAB HEMATOLOGY METHOD 01/27/2025 3:21 PM EDT [facility] nRBC 2.5(H) <=0.0 per 100 WBCs LAB HEMATOLOGY METHOD 01/27/2025 3:21 PM EDT [facility] Differential Type Automated LAB HEMATOLOGY METHOD 01/27/2025 3:21 PM EDT [facility] Neutrophils % 9 % LAB HEMATOLOGY METHOD 01/27/2025 3:21 PM EDT [facility] Lymphocytes % 78 % LAB HEMATOLOGY METHOD 01/27/2025 3:21 PM EDT [facility] Monocytes % 12 % LAB HEMATOLOGY METHOD 01/27/2025 3:21 PM EDT [facility] Eosinophils % 1 % LAB HEMATOLOGY METHOD 01/27/2025 3:21 PM EDT [facility] Basophils % 0 % LAB HEMATOLOGY METHOD 01/27/2025 3:21 PM EDT [facility] Immature Granulocytes % 0 % LAB HEMATOLOGY METHOD 01/27/2025 3:21 PM EDT [facility] Neutrophils Absolute 0.11(LL) 1.60 - 6.10 10*3/uL LAB HEMATOLOGY METHOD 01/27/2025 3:21 PM EDT [facility] Lymphocytes Absolute 0.95(L) 1.20 - 3.90 10*3/uL LAB HEMATOLOGY METHOD 01/27/2025 3:21 PM EDT [facility] Monocytes Absolute 0.15(L) 0.30 - 0.90 10*3/uL LAB HEMATOLOGY METHOD 01/27/2025 3:21 PM EDT [facility] Eosinophils Absolute 0.01 0.00 - 0.50 10*3/uL LAB HEMATOLOGY METHOD 01/27/2025 3:21 PM EDT [facility] Basophils Absolute 0.00 0.00 - 0.10 10*3/uL LAB HEMATOLOGY METHOD 01/27/2025 3:21 PM EDT [facility] Immature Granulocytes Absolute 0.00 0.00 - 0.06 10*3/uL LAB HEMATOLOGY METHOD 01/27/2025 3:21 PM EDT [facility] Blood Blood sample taken from central line / Unknown (Port) Long-term Catheter / Unknown 01/27/2025 3:00 PM EDT 01/27/2025 3:12 PM EDT Narrative [facility] - 01/27/2025 3:21 PM EDT Therapeutic decision making should be based on absolute values, rather than percentages. us New Mckinney MD LAB BLOOD ORDERABLES Final Re sult [facility] [address] [place] [address] * (ABNORMAL) Comprehensive Metabolic Panel, Plasma (01/27/2025 3:00 PM EDT) Only the most recent of2 resultswithin the time period is included. Glucose, Plasma 89 74 - 99 mg/dL 01/27/2025 4:26 PM EDT [facility] BUN, Plasma 22 8 - 23 mg/dL 01/27/2025 4:26 PM EDT [facility] Creatinine, Plasma 1.10 0.60 - 1.10 mg/dL 01/27/2025 4:26 PM EDT [facility] BUN/Creatinine Ratio 20 01/27/2025 4:26 PM EDT [facility] Sodium, Plasma 138 136 - 145 mmol/L 01/27/2025 4:26 PM EDT [facility] Potassium, Plasma 4.6 3.6 - 4.9 mmol/L 01/27/2025 4:26 PM EDT [facility] Chloride, Plasma 106 97 - 107 mmol/L 01/27/2025 4:26 PM EDT [facility] CO2, Plasma 22 22 - 29 mmol/L 01/27/2025 4:26 PM EDT [facility] Anion Gap 10 6 - 16 mmol/L 01/27/2025 4:26 PM EDT [facility] Total Calcium, Plasma 9.6 8.9 - 10.2 mg/dL 01/27/2025 4:26 PM EDT [facility] Total Protein 6.2(L) 6.3 - 7.9 g/dL 01/27/2025 4:26 PM EDT [facility] Albumin, Plasma 3.9 3.5 - 5.2 g/dL 01/27/2025 4:26 PM EDT [facility] AST, Plasma 33 10 - 35 U/L 01/27/2025 4:26 PM EDT [facility] ALT, Plasma 11 10 - 35 U/L 01/27/2025 4:26 PM EDT [facility] Alkaline Phosphatase, Plasma 43(L) 46 - 142 U/L 01/27/2025 4:26 PM EDT [facility] Total Bilirubin, Plasma 0.5 0.2 - 1.1 mg/dL 01/27/2025 4:26 PM EDT [facility] eGFRcr 52.8 mL/min/1.7 3m*2 01/27/2025 4:26 PM EDT [facility] Comment:Reported eGFRcr in m L/min/1.73m2 is based the CKD-EPI 2020 equation that does not use a race coefficient. Blood Blood sample taken from central line / Unknown (Port) Long-term Catheter / Unknown 01/27/2025 3:00 PM EDT 01/27/2025 3:54 PM EDT New Mckinney MD LAB BLOOD ORDERABLES Final Re sult [facility] [address] [place] [address] * BIOPSY BONE MARROW (01/12/2025 10:00 AM EDT) Narrative Rebecca Barrientos PA - 01/12/2025 10:00 AM EDT Rebecca Barrientos PA 01/12/2025 12:20 PM Biopsy bone marrow Performed by: Rebecca Barrientos PA Authorized by: Rebecca Barrientos PA us Rebecca SUAREZ IN CLINIC/BEDSIDE ORDERABLE S Final Result * Chromosome Karyotype, Oncology (01/12/2025 9:55 AM EDT) Specimen Type Bone Marrow 01/20/2025 12:21 PM EDT [facility] Clinical Indication Myelodysplastic Syndrome 01/20/2025 12:21 PM EDT [facility] Specimen Adequacy Adequate 025 12:21 PM EDT [facility] Chromosome Analysis Result Giemsa-banded metaphase cells from unstimulated bone marrow cultures showed the following chromosome pattern: 43~44,X,-X,add(5)( q23),del(5)(q13q33 ),todd(7)ins?(7)(q1 1.2q11.2)t(7;12)(q 11.2;q13),-12,todd( 17)add(17)(p13.2)a dd(17)(q21)[16]/88 ,XX,idemx2[cp3]/46 ,XY[1] 01/20/2025 12:21 PM EDT [facility] Interpretation Abnormal female chromosome analysis. 95% of metaphase cells analyzed showed clonal abnormalities consistent with this patient's previous abnormal results (see [facility]-[id number]). Clinical correlation is recommended. Note: Per [employer] (CAP) requirement an additional karyotype was performed and charged due to the presence of clonal abnormalities. # cells counted = 20 # cells analyzed = 20 # cells karyotyped = 3 Band resolution: 400-450 01/20/2025 12:21 PM EDT [facility] Pathologist Signature Reviewed by: Corey Tejada 01/20/2025 12:21 PM EDT [facility] Bone Marrow Non-blood Collection / Unknown 01/12/2025 9:55 AM EDT 01/12/2025 12:37 PM EDT New Mckinney MD LAB CYTOGENETICS ORDERABLES F inal Result [facility] [address] [place] [address] * Leukemia/Lymphoma - Immunophenotyping by Flow Cytometry (01/12/2025 9:55 AM EDT) Clinical Indication MDS 01/12/2025 4:19 PM EDT [facility] Flow Cytometry Interpretation APPROXIMATELY 27% MYELOID BLASTS EXPRESSING CD34, CD117, VARIABLE CD33, PARTIAL CD56, VARIABLE HLA-DR, PARTIAL DIM CD7, CD38 AND DIM CD45, SEE COMMENT, BBONE MARROW ASPIRATE. 01/12/2025 4:19 PM EDT [facility] Comments Specimen viability is 89%. [...] surface light chains 01/12/2025 4:19 PM EDT [facility] Disclaimer This test was developed [...] clinical laboratory testing. 01/12/2025 4:19 PM EDT [facility] Pathologist Signature Reviewed by: Asad Hartman MD 01/12/2025 4:19 PM EDT [facility] MRD Indicated Test Not Indicated 4:19 PM EDT [facility] Bone Marrow Specimen from bone marrow obtained by aspiration / Unknown Non-blood Collection / Unknown 01/12/2025 9:55 AM EDT 01/12/2025 1:48 PM EDT us New Mckinney MD LAB FLOW CYTOMETRY ORDERABLES Final Result [facility] [address] [place] [address] * Bone marrow exam (01/12/2025 9:55 AM EDT) Case Report Bone Marrow Case: [id number] Authorizing Provider: New Mckinney MD Collected: 01/12/2025 0955 Ordering Location: [facility] Hematology/BMT and Received: 01/12/2025 [facility] Cellular Therapy Program Pathologist: Asad Hartman MD Specimens: A) - Bone Marrow Aspirate, left B) - Bone Marrow Biopsy, left C) - Peripheral Blood for Bone Marrow 5:16 PM EDT [facility] Cytogenetics Report, Addendum Chromosome Analysis Result: Giemsa-banded metaphase cells from unstimulated bone marrow cultures showed the following chromosome pattern: 43~44,X,-X,add(5)( q23),del(5)(q13q33 ),todd(7)ins?(7)(q1 1.2q11.2)t(7;12)(q 11.2;q13),-12,todd( 17)add(17)(p13.2)a dd(17)(q21)[16]/88 ,XX,idemx2[cp3]/46 ,XY[1] Interpretation: Abnormal female chromosome analysis. 95% of metaphase cells analyzed showed clonal abnormalities consistent with this patient's previous abnormal results (see [id number]). 5:16 PM EDT [facility] Addendum electronically signed by Asad Hartman MD on 01/23/2025 at 1716 EDT Final Diagnosis PERIPHERAL BLOOD AND BONE MARROW, LEFT POSTERIOR ILIAC CREST, (PERIPHERAL SMEAR, ASPIRATE SMEAR, AND CORE BIOPSY): - HYPOCELLULAR BONE MARROW WITH MARKEDLY DECREASED MEGAKARYOCYTES, DECREASED MATURING GRANULOPOIESIS, APPROXIMATELY 7-10% VARIABLY DISTRIBUTED BLASTS AND MORE THAN 50% RING SIDEROBLASTS, SEE COMMENT. 5:16 PM EDT [facility] at 0941 EDT Comment The discrepancy between blasts percentage by morphologic assessment and flow cytometric analysis is due to erythroid precursors that constitute majority of bone marrow cellularity and are removed by flow cytometry. 5:16 PM EDT [facility] Clinical Information MDS 01/14 5:16 PM EDT [facility] CBC and Differential [...] cells. Platelets are decreased. 5:16 PM EDT [facility] Bone Marrow Differential BONE MARROW DIFFERENTIAL: 300 cells Normal Patient Neutrophils 15-50 12 Metamyelocytes 4-19 0 Myelocytes 1-18 1 Promyelocytes 1-8 0 Blasts 0-2 7 Monocytes 0-5 7 Erythroid 16-38 61 Lymphocytes 3-24 7 Eosinophils 0-6 3 Basophils 0-2 0 Plasma cells 0-4 2 Other 5:16 PM EDT [facility] Aspirate Smear The bone marrow [...] 50% of erythroid precursors. 5:16 PM EDT [facility] Core Biopsy CELLULARITY: Variably cellular [...] Bony trabeculae are normal. 5:16 PM EDT [facility] Special and Immunohistochemical Stains Immunohistochemica [...] performed at the [facility], [address] [place] [address]. All tests reported here, except those addressing [...] negativity on decalcified specimens. 5:16 PM EDT [facility] Flow Cytometry Interpretation Flow cytometric analysis demonstrates approximately 27% population of myeloid blasts in this patient with history of myelodysplastic syndrome; expressing CD34, CD117, variable CD33, partial CD56, variable HLA-DR, partial dim CD7, CD38 and dim CD45 ([id number]). 5:16 PM EDT [facility] Gross Description B. LEFT A single specimen is received in formalin labeled bone marrow biopsy left posterior iliac crest and consists of 1 piece(s) of red/white tissue measuring 0.9 cm in length 0.2 cm in diameter. The specimen is submitted in to Histology for decalcification and routine processing. Cold Time: <1m 5:16 PM EDT [facility] Note: A resident was involved in the service. I attest I examined the relevant preparations for the specimens and confirmed the diagnosis or interpretation. 5:16 PM EDT [facility] Bone Marrow Peripheral blood specimen [...] ed Result - Final Performing Organization Address [facility]/ZIP Co de Phone Number [facility] [address] [place] [address] * Hepatitis C Antibody w/Reflex to HCV Quant PCR (01/07/2024 8:42 AM EDT) Hepatitis C Antibody Negative Negative 01/07/2024 10:13 AM EDT [facility] Blood Venous blood specimen / Unknown Venipuncture / Unknown 01/07/2024 8:42 AM EDT 01/07/2024 9:25 AM EDT us New Mckinney MD LAB BLOOD ORDERABLES Final Re sult Performing Organization Address City/[facility]/ZIP Co de Phone Number [facility] [address] [place] [address] from Last 3 Months or Most Recently Relevant to Health Maintenance [place] [address] [facility] Care Teams Scaffold Worker Relationship Specialty Start Date End Date Jevon Vazquez MD [address] [place] [address] #1 #1 [place]SEP [place] [id number] PCP - General 03/23/22
--- OUTSIDE RECORDS SUMMARY | 2025-02-18 09:07 | XMS_ITS | Encounter Summary ---
Author Organization Healthcare Address [address] [place] [address] Care Team Providers Care Pastoral Counselor Name Role Phone Jevon Vazquez MD Primary Care Provider [phone] Encounter Details Date Type Department Care Team [...] Hematology/BMT and Cellular Therapy Program [address] [phone] 03/03/2025 1:30 PM EST Office Visit [facility] Hematology/BMT and Cellular Therapy Program [address] [phone] Zonia Hoffman, CHARGEMASTER SPECIALIST 800 [facility] [address] [place] [phone] documented as of this encounter Visit Diagnoses Not on filedocumented in this encounter Additional Health Concerns Assessment Noted Time A fall risk assessment has been complete d for the patient 09/30/2024 9:33 AM EDT A Body Mass Index follow-up plan has been documented for the patient 05/28/2024 1:52 PM EST documented as of this encounter Care Teams Pastoral Counselor Relationship Specialty Start Date End Date Jevon Vazquez MD [address] [place] [address] #1 #1 [place] [address] PCP - General 03/23/22 documented as of this encounter
--- OUTSIDE RECORDS SUMMARY | 2025-02-18 09:07 | XMS_ITS | Encounter Summary ---
Author Organization Healthcare Address [address] [place] [address] Care Team Providers Care Corporate Lawyer Name Role Phone Jevon Vazquez MD Primary Care Provider [phone] Encounter Details Date Type Department Care Team [...] Hematology/BMT and Cellular Therapy Program [address] [phone] 03/03/2025 1:30 PM EST Office Visit [facility] Hematology/BMT and Cellular Therapy Program [address] [phone] Zonia Hoffman, ZIG ZAG SPRING MACHINE OPERATOR 800 [facility] [address] [place] [phone] documented as of this encounter Visit Diagnoses Not on filedocumented in this encounter Additional Health Concerns Assessment Noted Time A fall risk assessment has been complete d for the patient 09/30/2024 9:33 AM EDT A Body Mass Index follow-up plan has been documented for the patient 05/28/2024 1:52 PM EST documented as of this encounter Care Teams Corporate Lawyer Relationship Specialty Start Date End Date Jevon Vazquez MD [address] [place] [address] #1 #1 [place] [address] PCP - General 03/23/22 documented as of this encounter
--- OUTSIDE RECORDS SUMMARY | 2025-02-18 09:07 | XMS_ITS | Encounter Summary ---
Author Organization Healthcare Address [address] [place] [address] Care Team Providers Care Sales Department Manager Name Role Phone Jevon Vazquez MD Primary Care Provider [phone] Encounter Details Date Type Department Care Team ([facility] Contact Info) Description 12/29/2024 Telephone [facility] Hematology/BMT and Cellular Therapy Program [address] [phone] Bibiana Sepulveda, FINANCE OFFICER 800 [facility] [address] [place] [phone] Social History Tobacco Use Types Packs/Day Years [...] wants to repeat BMBx. She verbalizes understanding. Computational Biologist made aware. documented in this encounter Plan of Treatment Upcoming Encounters Date Type Department Care Team ([facility] Contact Info) Description 03/03/2025 1:00 PM EST Clinical Support [facility] Hematology/BMT and Cellular Therapy Program [address] [address] 03/03/2025 1:30 PM EST Office Visit [facility] Hematology/BMT and Cellular Therapy Program [address] [address] Zonia Hoffman, FINANCE OFFICER 800 [facility] [address] [place] [phone] documented as of this encounter Visit Diagnoses Not on filedocumented in this encounter Additional Health Concerns Assessment Noted Time A fall risk assessment has been complete d for the patient 09/30/2024 9:33 AM EDT A Body Mass Index follow-up plan has been documented for the patient 05/28/2024 1:52 PM EST documented as of this encounter Care Teams Sales Department Manager Relationship Specialty Start Date End Date Jevon Vazquez MD [address] [place] [address] #1 #1 [place] [address] PCP - General 03/23/22 documented as of this encounter
--- OUTSIDE RECORDS SUMMARY | 2025-02-18 09:07 | XMS_ITS | Encounter Summary ---
Author Organization Healthcare Address [address] [place] [address] Care Team Providers Care Christian Ministries Professor Name Role Phone Jevon Vazquez MD Primary Care Provider [phone] Encounter Details Date Type Department Care Team ([facility] Contact Info) Description 02/16/2025 Orders Only [facility] Hematology/BMT and Cellular Therapy Program [address] [phone] 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, RN [facility] Social History Tobacco Use [...] Hematology/BMT and Cellular Therapy Program [address] [phone] 03/03/2025 1:30 PM EST Office Visit [facility] Hematology/BMT and Cellular Therapy Program [address] [phone] Zonia Hoffman, MANAGER NURSING 800 [facility] [address] [place] [phone] documented as of this encounter Visit Diagnoses Not on filedocumented in this encounter Additional Health Concerns Assessment Noted Time A fall risk assessment has been complete d for the patient 01/27/2025 3:25 PM EDT A Body Mass Index follow-up plan has been documented for the patient 05/28/2024 1:52 PM EST documented as of this encounter Care Teams Christian Ministries Professor Relationship Specialty Start Date End Date Jevon Vazquez MD [address] [place] [address] #1 #1 [place] [address] PCP - General 03/23/22 documented as of this encounter
--- OUTSIDE RECORDS SUMMARY | 2025-02-18 09:07 | XMS_ITS | Encounter Summary ---
Author Organization [facility] Address [address] [place] [address] Care Team Providers Care Head Insulation Board Saw Operator Name Role Phone Jevon Vazquez MD Primary Care Provider [phone] Encounter Details Date Type Department Care Team ([facility] Contact Info) Description 01/07/2025 Telephone [facility] Hematology/BMT and Cellular Therapy Program [address] [phone] Sabine Clemons MD [facility] [address] [place] [phone] Social History Tobacco Use Types Packs/Day Years [...] Hematology/BMT and Cellular Therapy Program [address] [phone] 03/03/2025 1:30 PM EST Office Visit [facility] Hematology/BMT and Cellular Therapy Program [address] [phone] Zonia Hoffman, DOOR BUILDER [facility] [address] [place] [address] documented as of this encounter Visit Diagnoses Not on filedocumented in this encounter Additional Health Concerns Assessment Noted Time A fall risk assessment has been complete d for the patient 09/30/2024 9:33 AM EDT A Body Mass Index follow-up plan has been documented for the patient 05/28/2024 1:52 PM EST documented as of this encounter Care Teams Head Insulation Board Saw Operator Relationship Specialty Start Date End Date Jevon Vazquez MD [address] [place] [address] #1 #1 [place] [address] PCP - General 03/23/22 documented as of this encounter
--- OUTSIDE RECORDS SUMMARY | 2025-02-18 09:07 | XMS_ITS | Encounter Summary ---
Author Organization Healthcare Address [address] [place] [address] Care Team Providers Care Claims Account Manager Name Role Phone Jevon Vazquez MD Primary Care Provider [phone] Encounter Details Date Type Department Care Team ([facility] Contact Info) Description 01/28/2025 Telephone [facility] Hematology/BMT and Cellular Therapy Program [address] [phone] [place] MD 800 [facility] [address] [place] [phone] Social History Tobacco Use Types Packs/Day Years [...] patient to inform patient of appointment at [place] on 02/04. Patient was informed that a [employer] message will be sent with information. documented in this encounter Plan of Treatment Upcoming Encounters Date Type Department Care Team ([facility] Contact Info) Description 03/03/2025 1:00 PM EST Clinical Support [facility] Hematology/BMT and Cellular Therapy Program [address] [place] [address] 03/03/2025 1:30 PM EST Office Visit [facility]AV Hematology/BMT and Cellular Therapy Program [address] [place] [address] Zonia Hoffman, DAY HABILITATION SPECIALIST 800 [facility] [address] [place] [phone] documented as of this encounter Visit Diagnoses Not on filedocumented in this encounter Additional Health Concerns Assessment Noted Time A fall risk assessment has been complete d for the patient 01/27/2025 3:25 PM EDT A Body Mass Index follow-up plan has been documented for the patient 05/28/2024 1:52 PM EST documented as of this encounter Care Teams Claims Account Manager Relationship Specialty Start Date End Date Jevon Vazquez MD [address] [place] [address] #1 #1 [place] [address] PCP - General 03/23/22 documented as of this encounter
--- OUTSIDE RECORDS SUMMARY | 2025-02-18 09:07 | XMS_ITS | Encounter Summary ---
Author Organization [facility] Address [address] [place] [address] Care Team Providers Care Swaging Machine Operator Name Role Phone Jevon Vazquez MD Primary Care Provider Reason for Visit * Reason Comments Med Refill Encounter Details Date Type Department Care Team ([facility] Contact Info) Description 01/07/2025 Refill [facility] Hematology/BMT and Cellular Therapy Program [address] [phone] Zonia Hoffman, LOAD DROPPER 800 [facility] [address] [place] [phone] Social History Tobacco Use Types Packs/Day Years [...] Team ([facility] Contact Info) Description 03/03/2025 1:00 PM EST Clinical Support [facility] Hematology/BMT and Cellular Therapy Program [address] [phone] 03/03/2025 1:30 PM EST Office Visit [facility] Hematology/BMT and Cellular Therapy Program [address] [phone] Zonia Hoffman, LOAD DROPPER 800 [facility] [address] [place] [address] documented as of this encounter Visit Diagnoses Not on filedocumented in this encounter Additional Health Concerns Assessment Noted Time A fall risk assessment has been complete d for the patient 09/30/2024 9:33 AM EDT A Body Mass Index follow-up plan has been documented for the patient 05/28/2024 1:52 PM EST documented as of this encounter Care Teams Swaging Machine Operator Relationship Specialty Start Date End Date Jevon Vazquez MD [address] [place] [address] #1 [address]1 [place] [address] PCP - General 03/23/22 documented as of this encounter
--- OUTSIDE RECORDS SUMMARY | 2025-02-18 09:07 | XMS_ITS | Encounter Summary ---
Author Organization [facility] Address [address] [place] [address] Care Team Providers Care Health And Physical Education Professor Name Role Phone Jevon Vazquez MD Primary Care Provider [phone] Reason for Referral * Genetic Testing (Routine) - Closed Specialty Diagnoses / Procedures Referred By Rebecca Referred To Contact Lab Diagnoses Myelodysplastic syndrome (CMS/HCC) Procedures Cytogenetics Testing, Oncology [place] MD [address] [address] Phone: tel: fax: Referral ID Status Reason Start Date Expiration Date Visits Re quested Visits Authorized [id number] Closed 12/29/2024 06/30/2026 1 1 * Genetic Testing (Routine) - Authorized Specialty Diagnoses / Procedures [facility] Referred To Contact Lab Diagnoses Myelodysplastic syndrome (CMS/HCC) Procedures Leukemia/Lymphoma - Immunophenotyping by Flow Cytometry [place] MD 800 [facility] [address] [address] Phone: tel: fax: Referral ID Status Reason Start Date Expiration Date V isits Requested Visits Authorized [id number] Authorized 12/29/2024 06/30/2026 1 1 * Genetic Testing (Routine) - Authorized Specialty Diagnoses / Procedures [facility] Referred To Contact Lab Diagnoses Myelodysplastic syndrome (CMS/HCC) Procedures Bone marrow exam New [place] MD 800 [facility] [address] [place] [phone] Phone: tel: fax: Referral ID Status Reason Start Date Expiration Date V isits Requested Visits Authorized [id number] Authorized 12/29/2024 06/30/2026 1 1 Encounter Details Date Type Department Care Team ([facility] [place] Contact Info) Description 12/29/2024 Orders Only [facility] CC Hematology/BMT and Cellular Therapy Program [address] [place] [address] New [place] MD 800 [facility] [address] [place] [phone] Myelodysplastic syndrome (CMS/HCC) (Primary Dx) Social [...] Therapy Program [address] [place] [address] 03/03/2025 1:30 PM EST Office Visit [facility] Hematology/BMT and Cellular Therapy Program [address] [place] [address] Zonia Hoffman APRN 800 [facility] [address] [address] documented as of this encounter Results * Leukemia/Lymphoma - Immunophenotyping by Flow Cytometry (01/12/2025 9:55 AM EDT) Clinical Indication MDS 01/12/2025 4:19 PM EDT [facility] Flow Cytometry Interpretation APPROXIMATELY 27% MYELOID BLASTS EXPRESSING CD34, CD117, VARIABLE CD33, PARTIAL CD56, VARIABLE HLA-DR, PARTIAL DIM CD7, CD38 AND DIM CD45, SEE COMMENT, BBONE MARROW ASPIRATE. 01/12/2025 4:19 PM EDT [facility] Comments Specimen viability is [...] clinical laboratory testing. 01/12/2025 4:19 PM EDT [facility] Pathologist Signature Reviewed by: Asad Hartman MD 01/12/2025 4:19 PM EDT [facility] MRD Indicated Test Not Indicated 4:19 PM EDT [facility] Bone Marrow Specimen from bone marrow obtained by aspiration / Unknown Non-blood Collection / Unknown 01/12/2025 9:55 AM EDT 01/12/2025 1:48 PM EDT us New [place] MD LAB FLOW CYTOMETRY ORDERABLES Final Result [facility] [address] [place] [address] * Bone marrow exam (01/12/2025 9:55 AM EDT) Case Report Bone Marrow Case: [id number] Authorizing Provider: New [place] MD Collected: 01/12/2025 0955 Ordering Location: [facility] Hematology/BMT and Received: 01/12/2025 [facility] Cellular Therapy Program Pathologist: Asad Hartman MD Specimens: A) - Bone Marrow Aspirate, left B) - Bone Marrow Biopsy, left C) - Peripheral Blood for Bone Marrow 5:16 PM EDT [facility] Cytogenetics Report, Addendum Chromosome Analysis Result: Giemsa-banded metaphase cells from unstimulated bone marrow cultures showed the following chromosome pattern: 43~44,X,-X,add(5)( q23),del(5)(q13q33 ),todd(7)ins?(7)(q1 1.2q11.2)t(7;12)(q 11.2;q13),-12,todd( 17)add(17)(p13.2)a dd(17)(q21)[16]/88 ,XX,idemx2[cp3]/46 ,XY[1] Interpretation: Abnormal female chromosome analysis. 95% of metaphase cells analyzed showed clonal abnormalities consistent with this patient's previous abnormal results (see [facility]-[id number]). 5:16 PM EDT [facility] Addendum electronically signed by Asad Hartman MD on 01/23/2025 at 1716 EDT Final Diagnosis PERIPHERAL BLOOD AND BONE MARROW, LEFT POSTERIOR ILIAC CREST, (PERIPHERAL SMEAR, ASPIRATE SMEAR, AND CORE BIOPSY): - HYPOCELLULAR BONE MARROW WITH MARKEDLY DECREASED MEGAKARYOCYTES, DECREASED MATURING GRANULOPOIESIS, APPROXIMATELY 7-10% VARIABLY DISTRIBUTED BLASTS AND MORE THAN 50% RING SIDEROBLASTS, SEE COMMENT. 5:16 PM EDT [facility] at 0941 EDT Comment The discrepancy between blasts percentage by morphologic assessment and flow cytometric analysis is due to erythroid precursors that constitute majority of bone marrow cellularity and are removed by flow cytometry. 5:16 PM EDT [facility] Clinical Information MDS 01/14 5:16 PM EDT [facility] CBC [...] cells. Platelets are decreased. 5:16 PM EDT [facility] Bone Marrow Differential BONE MARROW DIFFERENTIAL: 300 cells Normal Patient Neutrophils 15-50 12 Metamyelocytes 4-19 0 Myelocytes 1-18 1 Promyelocytes 1-8 0 Blasts 0-2 7 Monocytes 0-5 7 Erythroid 16-38 61 Lymphocytes 3-24 7 Eosinophils 0-6 3 Basophils 0-2 0 Plasma cells 0-4 2 Other 5:16 PM EDT [facility] Aspirate Smear The bone [...] of erythroid precursors. 5 5:16 PM EDT [facility] Core Biopsy CELLULARITY: Variably [...] trabeculae are normal. 5 5:16 PM EDT [facility] Special and Immunohistochemical Stains Immunohistochemica [...] the [facility], [address] [place] [address]. All tests reported here, except those addressing [...] negativity on decalcified specimens. 5:16 PM EDT [facility] Flow Cytometry Interpretation Flow cytometric analysis demonstrates approximately 27% population of myeloid blasts in this patient with history of myelodysplastic syndrome; expressing CD34, CD117, variable CD33, partial CD56, variable HLA-DR, partial dim CD7, CD38 and dim CD45 ([id number]). 5:16 PM EDT [facility] Gross Description B. LEFT A single specimen is received in formalin labeled bone marrow biopsy left posterior iliac crest and consists of 1 piece(s) of red/white tissue measuring 0.9 cm in length 0.2 cm in diameter. The specimen is submitted in to Histology for decalcification and routine processing. Cold Time: <1m 5:16 PM EDT [facility] Note: A resident was involved in the service. I attest I examined the relevant preparations for the specimens and confirmed the diagnosis or interpretation. 5:16 PM EDT [facility] Bone [...] - Final [facility] [address] [place] [address] documented in this encounter Visit Diagnoses Diagnosis Myelodysplastic syndrome (CMS/HCC)- Primary Myelodysplastic syndrome, unspecified documented in this encounter Additional Health Concerns Assessment Noted Time A fall risk assessment has been complete d for the patient 09/30/2024 9:33 AM EDT A Body Mass Index follow-up plan has been documented for the patient 05/28/2024 1:52 PM EST documented as of this encounter Care Teams Health And Physical Education Professor Relationship Specialty Start Date End Date Jevon Vazquez MD [address] [place] [address] #1 #1 [place] [address] PCP - General 03/23/22 documented as of this encounter
--- OUTSIDE RECORDS SUMMARY | 2025-02-18 09:07 | XMS_ITS | Encounter Summary ---
Author Organization Healthcare Address [address] [place] [address] Care Team Providers Care Hospital Pharmacist Name Role Phone Jevon Vazquez MD Primary Care Provider [phone] Encounter Details Date Type Department Care Team [...] Hematology/BMT and Cellular Therapy Program [address] [phone] 03/03/2025 1:30 PM EST Office Visit [facility] Hematology/BMT and Cellular Therapy Program [address] [phone] Zonia Hoffman, MARKETING COMMUNICATIONS LEADER 800 [facility] [address] [place] [phone] documented as of this encounter Visit Diagnoses Not on filedocumented in this encounter Additional Health Concerns Assessment Noted Time A fall risk assessment has been complete d for the patient 09/30/2024 9:33 AM EDT A Body Mass Index follow-up plan has been documented for the patient 05/28/2024 1:52 PM EST documented as of this encounter Care Teams Hospital Pharmacist Relationship Specialty Start Date End Date Jevon Vazquez MD [address] [place] [address] #1 #1 [place] [address] PCP - General 03/23/22 documented as of this encounter
--- OUTSIDE RECORDS SUMMARY | 2025-02-18 09:07 | XMS_ITS | Encounter Summary ---
Author Organization Healthcare Address [address] [place] [address] Care Team Providers Care Impact Hammer Operator Name Role Phone Jevon Vazquez MD [...] Hematology/BMT and Cellular Therapy Program [address] [phone] 03/03/2025 1:30 PM EST Office Visit [facility] CC Hematology/BMT and Cellular Therapy Program [address] [phone] Zonia Hoffman, FRENCH FOLDING MACHINE OPERATOR 800 [facility] [address] [place] [phone] documented as of this encounter Visit Diagnoses Not on filedocumented in this encounter Additional Health Concerns Assessment Noted Time A fall risk assessment has been complete d for the patient 09/30/2024 9:33 AM EDT A Body Mass Index follow-up plan has been documented for the patient 05/28/2024 1:52 PM EST documented as of this encounter Care Teams Impact Hammer Operator Relationship Specialty Start Date End Date Jevon Vazquez MD [address] [place] [address] #1 #1 [place] [address] PCP - General 03/23/22 documented as of this encounter
--- OUTSIDE RECORDS SUMMARY | 2025-02-18 09:07 | XMS_ITS | Encounter Summary ---
Author Organization [facility] Address [address] [place] [address] Care Team Providers Care Woods Overseer Name Role Phone Jevon Vazquez MD Primary Care Provider [phone] Encounter Details Date Type Department Care Team ([facility] Contact Info) Description 01/27/2025 Telephone [facility] CC Hematology/BMT and Cellular Therapy Program [address] [place] [address] Alyson Vivas RN Social History Tobacco Use [...] Hematology/BMT and Cellular Therapy Program [address] [place] [address] 03/03/2025 1:30 PM EST Office Visit [facility] CC Hematology/BMT and Cellular Therapy Program [address] [place] [phone] Zonia Hoffman, MACHINE PULLER 800 [facility] [address] [place] [address] documented as of this encounter Visit Diagnoses Not on filedocumented in this encounter Additional Health Concerns Assessment Noted Time A fall risk assessment has been complete d for the patient 01/27/2025 3:25 PM EDT A Body Mass Index follow-up plan has been documented for the patient 05/28/2024 1:52 PM EST documented as of this encounter Care Teams Woods Overseer Relationship Specialty Start Date End Date Jevon Vazquez MD [address] [place] [address] #1 #1 [place] [address] PCP - General 03/23/22 documented as of this encounter
--- OUTSIDE RECORDS SUMMARY | 2025-02-18 09:07 | XMS_ITS | Encounter Summary ---
Author Organization Healthcare Address [address] [place] [address] Care Team Providers Care Software Release Manager Name Role Phone Jevon Vazquez MD Primary Care Provider [phone] Encounter Details Date Type Department Care Team [...] Hematology/BMT and Cellular Therapy Program [address] [phone] 03/03/2025 1:30 PM EST Office Visit [facility] CC Hematology/BMT and Cellular Therapy Program [address] [address] Zonia Hoffman, RETREAD SUPERVISOR 800 [facility] [address] [place] [phone] documented as of this encounter Visit Diagnoses Not on filedocumented in this encounter Additional Health Concerns Assessment Noted Time A fall risk assessment has been complete d for the patient 09/30/2024 9:33 AM EDT A Body Mass Index follow-up plan has been documented for the patient 05/28/2024 1:52 PM EST documented as of this encounter Care Teams Software Release Manager Relationship Specialty Start Date End Date Jevon Vazquez MD [address] [place] [address] #1 #1 [place] [address] PCP - General 03/23/22 documented as of this encounter
--- OUTSIDE RECORDS SUMMARY | 2025-02-18 09:07 | XMS_ITS | Encounter Summary ---
Author Organization [facility] Address [address] [place] [address] Care Team Providers Care Marketing Proposal Specialist Name Role Phone Jevon Vazquez MD Primary Care Provider [phone] Encounter Details Date Type Department Care Team (Late st Contact Info) Description 01/27/2025 Telephone [facility] [address] [place] [phone] Emil Hardy, PharmD Social History Tobacco Use [...] Valdes, PharmD - 01/28/2025 2:40 PM EDT [facility] Specialty Medication Initial Care Plan Ashly Hernández [...] Injectable, preservative free 03/21/2024 Moderna COVID-19 Vaccine (Delicatessen Store Manager) 12+ years 06/12/2020, 07/10/2020, 02/18/2021 Selected [...] Patient reports education was provided by clinic [facility]. She denied further education at this [...] Hematology/BMT and Cellular Therapy Program [address] [phone] 03/03/2025 1:30 PM EST Office Visit PAV Hematology/BMT and Cellular Therapy Program [address] [phone] Zonia Hoffman, CHEMICAL MAKER 800 [facility] [address] [place] [phone] documented as of this encounter Visit Diagnoses Not on filedocumented in this encounter Additional Health Concerns Assessment Noted Time A fall risk assessment has been complete d for the patient 01/27/2025 3:25 PM EDT A Body Mass Index follow-up plan has been documented for the patient 05/28/2024 1:52 PM EST documented as of this encounter Care Teams Marketing Proposal Specialist Relationship Specialty Start Date End Date Jevon Vazquez MD [address] [place] [address] #1 #1 [place] [address] PCP - General 03/23/22 documented as of this encounter
--- OUTSIDE RECORDS SUMMARY | 2025-02-18 09:07 | XMS_ITS | Encounter Summary ---
Author Organization Healthcare Address [address] [place] [address] Care Team Providers Care Juice Mixer Name Role Phone Jevon Vazquez MD Primary Care Provider [phone] Encounter Details Date Type Department Care Team [...] Hematology/BMT and Cellular Therapy Program [address] [address] 03/03/2025 1:30 PM EST Office Visit [facility] Hematology/BMT and Cellular Therapy Program [address] [address] Zonia Hoffman, PROTOTYPE FABRICATOR 800 [facility] [address] [place] [phone] documented as of this encounter Visit Diagnoses Not on filedocumented in this encounter Additional Health Concerns Assessment Noted Time A fall risk assessment has been complete d for the patient 09/30/2024 9:33 AM EDT A Body Mass Index follow-up plan has been documented for the patient 05/28/2024 1:52 PM EST documented as of this encounter Care Teams Juice Mixer Relationship Specialty Start Date End Date Jevon Vazquez MD [address] [place] [address] #1 #1 [place] [address] PCP - General 03/23/22 documented as of this encounter
--- OUTSIDE RECORDS SUMMARY | 2025-02-18 09:07 | XMS_ITS | Encounter Summary ---
Author Organization Healthcare Address [address] [place] [address] Care Team Providers Care Marketing Services Coordinator Name Role Phone Jevon Vazquez MD Primary Care Provider [phone] Encounter Details Date Type Department Care Team [...] Hematology/BMT and Cellular Therapy Program [address] [phone] 03/03/2025 1:30 PM EST Office Visit [facility] Hematology/BMT and Cellular Therapy Program [address] [phone] Zonia Hoffman, DIGITAL ASSOCIATE 800 [facility] [address] [place] [phone] documented as of this encounter Visit Diagnoses Not on filedocumented in this encounter Additional Health Concerns Assessment Noted Time A fall risk assessment has been complete d for the patient 01/27/2025 3:25 PM EDT A Body Mass Index follow-up plan has been documented for the patient 05/28/2024 1:52 PM EST documented as of this encounter Care Teams Marketing Services Coordinator Relationship Specialty Start Date End Date Jevon Vazquez MD [address] [place] [address] #1 #1 [place] [address] PCP - General 03/23/22 documented as of this encounter
--- OUTSIDE RECORDS SUMMARY | 2025-02-18 09:07 | XMS_ITS | Encounter Summary ---
Author Organization Healthcare Address [address] [place] [address] Care Team Providers Care Petroleum Refinery Worker Name Role Phone Jevon Vazquez MD Primary Care Provider Encounter Details Date Type Department Care Team (Late Contact Info) Description 01/16/2025 Telephone [facility] Hematology/BMT and Cellular Therapy Program [address] [place] [address] [place] [address] Daxa Elliott RN [facility] H[facility]AT[facility] CLINIC Social History Tobacco [...] Hematology/BMT and Cellular Therapy Program [address] [place] [address] 03/03/2025 1:30 PM EST Office Visit [facility]AV Hematology/BMT and Cellular Therapy Program 750 [facility] [place] [phone] Zonia Hoffman, DENTURES LAB TECHNICIAN 800 [facility] [address] [place] [phone] documented as of this encounter Visit Diagnoses Not on filedocumented in this encounter Additional Health Concerns Assessment Noted Time A fall risk assessment has been complete d for the patient 09/30/2024 9:33 AM EDT A Body Mass Index follow-up plan has been documented for the patient 05/28/2024 1:52 PM EST documented as of this encounter Care Teams Petroleum Refinery Worker Relationship Specialty Start Date End Date Jevon Vazquez MD [address] [place] [address] #1 #1 [place] [address] PCP - General 03/23/22 documented as of this encounter
--- OUTSIDE RECORDS SUMMARY | 2025-02-18 09:07 | XMS_ITS | Encounter Summary ---
Author Organization Healthcare Address [address] [place] [address] Care Team Providers Care Iv Therapy Nurse Name Role Phone Jevon Vazquez MD Primary Care Provider [phone] Encounter Details Date Type Department Care Team [...] Hematology/BMT and Cellular Therapy Program [address] [address] 03/03/2025 1:30 PM EST Office Visit [facility] Hematology/BMT and Cellular Therapy Program [address] [phone] Zonia Hoffman, NEWS DIRECTOR 800 [facility] [address] [place] [phone] documented as of this encounter Visit Diagnoses Not on filedocumented in this encounter Additional Health Concerns Assessment Noted Time A fall risk assessment has been complete d for the patient 09/30/2024 9:33 AM EDT A Body Mass Index follow-up plan has been documented for the patient 05/28/2024 1:52 PM EST documented as of this encounter Care Teams Iv Therapy Nurse Relationship Specialty Start Date End Date Jevon Vazquez MD [address] [place] [address] #1 #1 [place] [address] PCP - General 03/23/22 documented as of this encounter
--- OUTSIDE RECORDS SUMMARY | 2025-02-18 09:07 | XMS_ITS | Encounter Summary ---
Author Organization [facility] Address [address] [place] [address] Care Team Providers Care Mobile Application Development Lead Name Role Phone Jevon Vazquez MD Primary Care Provider [phone] Reason for Visit * Reason Comments Med Refill Encounter Details Date Type Department Care Team ([facility] Contact Info) Description 01/05/2025 Refill [facility] Hematology/BMT and Cellular Therapy Program [address] [phone] Zonia Hoffman, NURSE RN BSN 800 [facility] [address] [place] [phone] Social History Tobacco Use Types Packs/Day Years [...] Hematology/BMT and Cellular Therapy Program [address] [phone] 03/03/2025 1:30 PM EST Office Visit [facility] Hematology/BMT and Cellular Therapy Program [address] [phone] Zonia Hoffman, NURSE RN BSN 800 [facility] [address] [place] [address] documented as of this encounter Visit Diagnoses Not on filedocumented in this encounter Additional Health Concerns Assessment Noted Time A fall risk assessment has been complete d for the patient 09/30/2024 9:33 AM EDT A Body Mass Index follow-up plan has been documented for the patient 05/28/2024 1:52 PM EST documented as of this encounter Care Teams Mobile Application Development Lead Relationship Specialty Start Date End Date Jevon Vazquez MD [address] [place] [address] #1 [address]1 [place] [address] PCP - General 03/23/22 documented as of this encounter
--- OUTSIDE RECORDS SUMMARY | 2025-02-18 09:08 | XMS_ITS | Clinical Summary ---
Author Organization [facility] Address [address] [place] [address] Phone Care Team Providers Care Nutritionist Public Health Name Role Phone Jevon Vazquez MD Primary Care Provider [phone] Allergies Active Allergy Reactions Criticality Noted Date [...] L4-5 LAMINECTOMY; Surgeon: Ivan Bartholomew MD; Location: [facility] OR; Service: Spine Medical History Medical [...] 5.6 % 11/14/2022 2:57 PM EDT PREFERRED [employer] Est. Avg Glucose 148 mg/dL 11/14/2022 2:57 PM EDT [employer] Blood VENOUS BLOOD / Unknown Venipuncture / Unknown 11/11/2022 3:46 PM EDT 11/11/2022 3:55 PM EDT Narrative PREFERRED [employer] [facility] - 11/14/2022 2:57 [...] Maloney DO CHEMISTRY ORDERABLES Final R esult [employer] 1 [facility] , [address] [place] [id number] * (ABNORMAL) BASIC METABOLIC PANEL (11/11/2022 3:46 PM EDT) Sodium 136 136 - 145 mmol/L 11/11/2022 4:11 PM EDT [facility] Potassium 3.8 3.5 - 5.0 mmol/L 11/11/2022 4:11 PM EDT [facility] Chloride 102 98 - 107 mmol/L 11/11/2022 4:11 PM EDT [facility] Total CO2 24 22 - 29 mmol/L 11/11/2022 4:11 PM EDT [facility] Anion Gap 10 7 - 16 mmol/L 11/11/2022 4:11 PM EDT [facility] Calcium 10.1 8.8 - 10.4 mg/dL 11/11/2022 4:11 PM EDT [facility] Glucose Lvl 147(H) 82 - 100 mg/dL 11/11/2022 4:11 PM EDT [facility] BUN 15 8 - 23 mg/dL 11/11/2022 4:11 PM EDT [facility] Creatinine 0.82 0.51 - 1.30 mg/dL 11/11/2022 4:11 PM EDT [facility] eGFR (CKD-EPIcr 2021) 76 >=60 mL/min/1.7 3 m2 11/11/2022 4:11 PM EDT [facility] Comment:Estimated GFR was ca lculated using the CKD-EPIcr (2020) equation refit without race. The equation is recommended by the National Kidney Foundation - [place] Society of Nephrology Task Force. Blood VENOUS BLOOD / Unknown Venipuncture / Unknown 11/11/2022 3:46 PM EDT 11/11/2022 3:54 PM EDT us Leona Hanna DO CHEMISTRY ORDERABLES Final Res ult [facility] [address] [place] [address] * DX BONE DENSITY AXIAL SKELETON (07/25/2022 9:14 AM EDT) Anatomical Region Laterality Modality Dexa Scan 07/25/2022 Narrative 07/25/2022 3:45 PM EDT Indication: The patient is a female age 65 or older who requires a bone density assessment. Study was performed on E[employer] Messenger 5. Bone Density: Region BMD T-score Z-score [...] Payer (Ef fective 2016-Present) Name:Ashly Hernández Member ID:[id number] Relation to Subscriber:Self Name:Ashly Hernández Subscriber ID:[id number] Payer ID:Not on file Group ID:Not on file Type:Not on file Address: [address] MEDICARE SUPPLEMENT [place] PART A & B [place] PART A AND B Member Subscriber Plan / Payer (Ef fective 2016-Present) Name:Ashly Heránndez Member ID:[id number] Relation to Subscriber:Self Name:Ashly Hernández Subscriber ID:[id number] Payer ID:Not on file Group ID:Not on file Type:Not on file Address: [address] MEDICARE SUPPLEMENT [employer] MEDICARE [place] PART A AND B [address] MEDICARE SUPPLEMENT Advance Directives For more information, please contact: [phone] * Full Code (Latest Code Status on File) Date Activated Date Inactivated Comments 11/14/2022 6:53 PM 11/16/2022 7:37 PM * Full Code Date Activated Date Inactivated Comments 11/12/2022 5:17 AM 11/14/2022 6:47 PM Care Teams Nutritionist Public Health Relationship Specialty Start Date End Date Jevon Vazquez MD [address] [place] [address] PCP - General Family Medicine 11/10/22
[2025-02-18 09:15] LABS: Hematocrit 23.4 % (37.0-47.0); Hemoglobin 7.9 g/dL (12.2-16.2); Immature Granulocytes % 0 %; Mean Corpuscular HGB Conc 33.8 g/dL (31.8-35.4); Mean Corpuscular Hemoglobin 29.0 pg (27.0-31.2); Mean Corpuscular Volume 86.0 fl (81-99); Nucleated Red Blood Cells % 0 %; Red Blood Count 2.72 M/mm3 (4.20-5.40); Red Cell Distribution Width-SD 50.8 fL
[2025-02-18 09:22] LABS: White Blood Count 0.6 K/mm3 (4.8-10.8)
[2025-02-18 09:23] LABS: Platelet Count 9 K/mm3 (142-424)
[2025-02-18 09:31] LABS: Alanine Aminotransferase 14 U/L (12-78); Albumin Level 3.4 g/dl (3.5-5.0); Albumin/Globulin Ratio 1.1 (1.1-1.8); Alkaline Phosphatase 49 U/L (38-126); Anion Gap 10.5 mEq/L (5-15); Aspartate Amino Transferase 23 U/L (14-36); Bilirubin,Total 0.9 mg/dl (0.2-1.3); Blood Urea Nitrogen 21 mg/dl (7-17); Calcium 9.5 mg/dl (8.4-10.2); Carbon Dioxide 22 mmol/L (22.0-30.0); Chloride 106 mmol/L (98-107); Creatinine Clearance Estimated 43 mL/min (50-200); Creatinine,Serum 0.90 mg/dl (0.52-1.04); Estimated Glomerular Filt Rate 61 ml/min (>60); GFR (African American) 74 ML/MIN (>60); Globulin 3.2 g/dL (1.3-3.2); Glucose 187 mg/dl (74-100); Potassium 3.5 mmoL/L (3.5-5.1); Sodium 135 mmol/L (136-145); Total Protein,Serum 6.6 g/dl (6.3-8.2)
--- NOTE | 2025-02-18 09:51 | PC.NURSE ---
0935-lab staff to witness type and crossmatch/blood draw.
[2025-02-18 10:22] LABS: RBC Morphology Normal; Total Cells Counted 25
[2025-02-18] MEDS: ACETAMINOPHEN 325MG TAB 650 MG PO (11:00)
[2025-02-18] MEDS: 0.9 % SODIUM CHLORIDE 250 ML 25 ML IV (11:26)
== END 2025-02-18 23:59 | disposition home or self-care (01) ==
LOC: INF 08:59
PROVIDERS: PCP Family Medicine; Visit Provider Internal Medicine Medical Oncology
DX: C92.00 Acute myeloblastic leukemia, not having achieved remission (principal)
CPT/HCPCS: 36430; 80053; 85007; 85025; 86850; J1642; J7050; P9016; P9034

== ENCOUNTER 2025-02-20 08:57 | Outpatient (CLI) | payer MEDICARE, BC, SELFPAY ==
--- OUTSIDE RECORDS SUMMARY | 2025-01-12 08:30 | XMS_ITS | Encounter Summary ---
Author Organization Healthcare Address [address] [place] [address] Care Team Providers Care Assistant Professor Of Surgery Name Role Phone Jevon Vazquez MD Primary Care Provider [phone] Reason for Visit * Reason Comments Labs Encounter Details Date Type Department Care Team ([facility] Contact Info) Description 01/12/2025 9:30 AM EDT Clinical Support [facility] Hematology/BMT and Cellular Therapy Program [address] [phone] Social History Tobacco Use Types Packs/Day Years [...] ([facility] Contact Info) Description 03/03/2025 1:00 PM EST Clinical Support [facility] Hematology/BMT and Cellular Therapy Program [address] [phone] 03/03/2025 1:30 PM EST Office Visit [facility] Hematology/BMT and Cellular Therapy Program [address] [phone] Zonia Hoffman, LAST WAXER 800 [facility] [address] [place] [phone] documented as of this encounter Visit Diagnoses Not on filedocumented in this encounter Additional Health Concerns Assessment Noted Time A fall risk assessment has been complete d for the patient 09/30/2024 9:33 AM EDT A Body Mass Index follow-up plan has been documented for the patient 05/28/2024 1:52 PM EST documented as of this encounter Care Teams Assistant Professor Of Surgery Relationship Specialty Start Date End Date Jeovn Vazquez MD [address] [place] [address] #1 #1 [place] [address] PCP - General 03/23/22 documented as of this encounter
--- OUTSIDE RECORDS SUMMARY | 2025-01-12 09:00 | XMS_ITS | Encounter Summary ---
Author Organization [facility] Address [address] [place] [address] Care Team Providers Care Superintendent Stations Name Role Phone Jevon Vazquez MD Primary Care Provider [phone] Reason for Visit * Genetic Testing (Routine) - Authorized Specialty Diagnoses / Procedures Referred By Rebecca barron Referred To Contact Lab Diagnoses Myelodysplastic syndrome (CMS/HCC) Procedures Leukemia/Lymphoma - Immunophenotyping by Flow Cytometry New Mckinney MD 800 [facility] [address] [phone] Phone: tel: fax: Referral ID Status Reason Start Date Expiration Date V isits Requested Visits Authorized [id number] Authorized 12/29/2024 06/30/2026 1 1 Encounter Details Date Type Department Care Team (Latest Contact Info) Description 01/12/2025 10:00 AM EDT Procedure Visit [facility] Hematology/BMT and Cellular Therapy Program [address] [phone] Rebecca Barrientos PA 800 [facility] [address] [address] Myelodysplastic syndrome (CMS/HCC); Acute myeloid [...] THERAPY PROGRAM 800 [facility] [phone] / documented in this encounter Plan of Treatment Upcoming Encounters Date Type Department Care Team ([facility] st Contact Info) Description 03/03/2025 1:00 PM EST Clinical Support [facility] Hematology/BMT and Cellular Therapy Program [address] [phone] 03/03/2025 1:30 PM EST Office Visit [facility] Hematology/BMT and Cellular Therapy Program [address] [phone] Zonia Hoffman, RODDY 800 [facility] [address] [place] [phone] documented as of this encounter Procedures Procedure [...] Type Bone Marrow 01/20/2025 12:21 PM EDT [facility] Clinical Indication Myelodysplastic Syndrome 01/20/2025 12:21 PM EDT [facility] Specimen Adequacy Adequate 025 12:21 PM EDT [facility] Chromosome Analysis Result Giemsa-banded metaphase cells from unstimulated bone marrow cultures showed the following chromosome pattern: 43~44,X,-X,add(5)( q23),del(5)(q13q33 ),todd(7)ins?(7)(q1 1.2q11.2)t(7;12)(q 11.2;q13),-12,todd( 17)add(17)(p13.2)a dd(17)(q21)[16]/88 ,XX,idemx2[cp3]/46 ,XY[1] 01/20/2025 12:21 PM EDT [facility] Interpretation Abnormal female chromosome analysis. 95% of metaphase cells analyzed showed clonal abnormalities consistent with this patient's previous abnormal results (see [id number]). Clinical correlation is recommended. Note: Per [employer] (CAP) requirement an additional karyotype was performed and charged due to the presence of clonal abnormalities. # cells counted = 20 # cells analyzed = 20 # cells karyotyped = 3 Band resolution: 400-450 01/20/2025 12:21 PM EDT [facility] Pathologist Signature Reviewed by: Corey Tejada 01/20/2025 12:21 PM EDT [facility] Bone Marrow Non-blood Collection / Unknown 01/12/2025 9:55 AM EDT 01/12/2025 12:37 PM EDT us New Mckinney MD LAB CYTOGENETICS ORDERABLES F inal Result [facility] [address] [place] [address] * Leukemia/Lymphoma - Immunophenotyping by Flow Cytometry (01/12/2025 9:55 AM EDT) Clinical Indication MDS 01/12/2025 4:19 PM EDT [facility] Flow Cytometry Interpretation APPROXIMATELY 27% MYELOID BLASTS EXPRESSING CD34, CD117, VARIABLE CD33, PARTIAL CD56, VARIABLE HLA-DR, PARTIAL DIM CD7, CD38 AND DIM CD45, SEE COMMENT, BBONE MARROW ASPIRATE. 01/12/2025 4:19 PM EDT [facility] Comments Specimen viability is [...] surface light chains 01/12/2025 4:19 PM EDT [facility] Disclaimer This test was developed and its performance characteristics determined by the Immuno-Molecular Pathology Laboratory at the [facility]. It has not been cleared or [...] clinical laboratory testing. 01/12/2025 4:19 PM EDT [facility] Pathologist Signature Reviewed by: Asad Hartman MD 01/12/2025 4:19 PM EDT [facility] MRD Indicated Test Not Indicated 4:19 PM EDT [facility] Bone Marrow Specimen from bone marrow obtained by aspiration / Unknown Non-blood Collection / Unknown 01/12/2025 9:55 AM EDT 01/12/2025 1:48 PM EDT us New Mckinney MD LAB FLOW CYTOMETRY ORDERABLES Final Result [facility] [address] [place] [address] * Bone marrow exam (01/12/2025 9:55 AM EDT) Case Report Bone Marrow Case: [id number] Authorizing Provider: New Mckinney MD Collected: 01/12/2025 0955 Ordering Location: [facility] Hematology/BMT and Received: 01/12/2025 1143 Cellular Therapy Program Pathologist: Asad Hartman MD Specimens: A) - Bone Marrow Aspirate, left B) - Bone Marrow Biopsy, left C) - Peripheral Blood for Bone Marrow 5:16 PM EDT [facility] Cytogenetics Report, Addendum Chromosome Analysis Result: Giemsa-banded metaphase cells from unstimulated bone marrow cultures showed the following chromosome pattern: 43~44,X,-X,add(5)( q23),del(5)(q13q33 ),todd(7)ins?(7)(q1 1.2q11.2)t(7;12)(q 11.2;q13),-12,todd( 17)add(17)(p13.2)a dd(17)(q21)[16]/88 ,XX,idemx2[cp3]/46 ,XY[1] Interpretation: Abnormal female chromosome analysis. 95% of metaphase cells analyzed showed clonal abnormalities consistent with this patient's previous abnormal results (see [facility]-[id number]). 5:16 PM EDT [facility] Addendum electronically signed by Asad Hartman MD on 01/23/2025 at 1716 EDT Final Diagnosis PERIPHERAL BLOOD AND BONE MARROW, LEFT POSTERIOR ILIAC CREST, (PERIPHERAL SMEAR, ASPIRATE SMEAR, AND CORE BIOPSY): - HYPOCELLULAR BONE MARROW WITH MARKEDLY DECREASED MEGAKARYOCYTES, DECREASED MATURING GRANULOPOIESIS, APPROXIMATELY 7-10% VARIABLY DISTRIBUTED BLASTS AND MORE THAN 50% RING SIDEROBLASTS, SEE COMMENT. 5:16 PM EDT [facility] at 0941 EDT Comment The discrepancy between blasts percentage by morphologic assessment and flow cytometric analysis is due to erythroid precursors that constitute majority of bone marrow cellularity and are removed by flow cytometry. 5:16 PM EDT [facility] Clinical Information MDS 01/14 5:16 PM EDT [facility] CBC and Differential [...] cells. Platelets are decreased. 5:16 PM EDT [facility] Bone Marrow Differential BONE MARROW DIFFERENTIAL: 300 cells Normal Patient Neutrophils 15-50 12 Metamyelocytes 4-19 0 Myelocytes 1-18 1 Promyelocytes 1-8 0 Blasts 0-2 7 Monocytes 0-5 7 Erythroid 16-38 61 Lymphocytes 3-24 7 Eosinophils 0-6 3 Basophils 0-2 0 Plasma cells 0-4 2 Other 5:16 PM T [facility] Aspirate Smear The bone [...] 50% of erythroid precursors. 5:16 PM T [facility] Core Biopsy CELLULARITY: Variably [...] Bony trabeculae are normal. 5:16 PM T [facility] Special and Immunohistochemical [...] at the [facility], [address] [place] [address]. All tests reported here, except those addressing [...] negativity on decalcified specimens. 5:16 PM T [facility] Flow Cytometry Interpretation Flow cytometric analysis demonstrates approximately 27% population of myeloid blasts in this patient with history of myelodysplastic syndrome; expressing CD34, CD117, variable CD33, partial CD56, variable HLA-DR, partial dim CD7, CD38 and dim CD45 ([id number]). 5:16 PM T [facility] Gross Description B. LEFT A single specimen is received in formalin labeled bone marrow biopsy left posterior iliac crest and consists of 1 piece(s) of red/white tissue measuring 0.9 cm in length 0.2 cm in diameter. The specimen is submitted in to Histology for decalcification and routine processing. Cold Time: <1m 5:16 PM [facility] Note: A resident was involved in the service. I attest I examined the relevant preparations for the specimens and confirmed the diagnosis or interpretation. 5:16 PM T [facility] Bone Marrow Peripheral [...] PATHOLOGY ORDERABLES Edit ed Result - Final [facility] [address] [place] [address] * (ABNORMAL) CBC and Differential (01/12/2025 9:15 AM EDT) WBC Count 1.31(L) 3.70 - 10.30 10*3/uL LAB HEMATOLOGY METHOD 01/12/2025 9:[address] [facility] RBC Count 2.70(L) 3.90 - 5.20 10*6/uL LAB HEMATOLOGY METHOD 01/12/2025 9:[address] [facility] HGB 8.4(L) 11.2 - 15.7 g/dL LAB HEMATOLOGY METHOD 01/12/2025 9:[address] [facility] HCT 25.0(L) 34.0 - 45.0 % LAB HEMATOLOGY METHOD 01/12/2025 9:[address] [facility] Platelet Count 31(L) 155 - 369 10*3/uL LAB HEMATOLOGY METHOD 01/12/2025 9:[address] [facility] MCV 93 79 - 98 fL LAB HEMATOLOGY METHOD 01/12/2025 9:[address] [facility] MCH 31.1 26.0 - 32.0 pg LAB HEMATOLOGY METHOD 01/12/2025 9:[address] [facility] MCHC 33.6 30.7 - 35.5 g/dL LAB HEMATOLOGY METHOD 01/12/2025 9:[address] [facility] RDW 20.0(H) 11.5 - 14.5 % LAB HEMATOLOGY METHOD 01/12/2025 9:[address] [facility] MPV 8.8 8.8 - 12.5 fL LAB HEMATOLOGY METHOD 01/12/2025 9:[address] [facility] nRBC 3.1(H) <=0.0 per 100 WBCs LAB HEMATOLOGY METHOD 01/12/2025 9:[address] [facility] Differential Type Automated LAB HEMATOLOGY METHOD 01/12/2025 9:[address] [facility] Neutrophils % 19 % LAB HEMATOLOGY METHOD 01/12/2025 9:[address] [facility] Lymphocytes % 64 % LAB HEMATOLOGY METHOD 01/12/2025 9:[address] [facility] Monocytes % 15 % LAB HEMATOLOGY METHOD 01/12/2025 9:[address] [facility] Eosinophils % 2 % LAB HEMATOLOGY METHOD 01/12/2025 9:[address] [facility] Basophils % 0 % LAB HEMATOLOGY METHOD 01/12/2025 9:[address] [facility] Immature Granulocytes % 0 % LAB HEMATOLOGY METHOD 01/12/2025 9:[address] [facility] Neutrophils Absolute 0.25(LL) 1.60 - 6.10 10*3/uL LAB HEMATOLOGY METHOD 01/12/2025 9:[address] [facility] Lymphocytes Absolute 0.84(L) 1.20 - 3.90 10*3/uL LAB HEMATOLOGY METHOD 01/12/2025 9:[address] [facility] Monocytes Absolute 0.20(L) 0.30 - 0.90 10*3/uL LAB HEMATOLOGY METHOD 01/12/2025 9:[address] [facility] Eosinophils Absolute 0.02 0.00 - 0.50 10*3/uL LAB HEMATOLOGY METHOD 01/12/2025 9:[address] [facility] Basophils Absolute 0.00 0.00 - 0.10 10*3/uL LAB HEMATOLOGY METHOD 01/12/2025 9:[address] [facility] Immature Granulocytes Absolute 0.00 0.00 - 0.06 10*3/uL LAB HEMATOLOGY METHOD 01/12/2025 9:[address] [facility] Blood Blood sample taken from central line / Unknown (Port) Long-term Catheter / Unknown 01/12/2025 9:15 AM EDT 01/12/2025 9:31 AM EDT [facility] - 01/12/2025 9:58 AM EDT Therapeutic decision making should be based on absolute values, rather than percentages. us New Mckinney MD LAB BLOOD ORDERABLES Final Re sult [facility] [address] [place] [address] * (ABNORMAL) Comprehensive Metabolic Panel, Plasma (01/12/2025 9:15 AM EDT) Glucose, Plasma 121(H) 74 - 99 mg/dL 01/12/2025 10:02 AM EDT [facility] BUN, Plasma 24(H) 8 - 23 mg/dL 01/12/2025 10:02 AM EDT [facility] Creatinine, Plasma 1.19(H) 0.60 - 1.10 mg/dL 01/12/2025 10:02 AM EDT [facility] BUN/Creatinine Ratio 20 01/12/2025 10:02 AM EDT [facility] Sodium, Plasma 138 136 - 145 mmol/L 01/12/2025 10:02 AM EDT [facility] Potassium, Plasma 3.9 3.6 - 4.9 mmol/L 01/12/2025 10:02 AM EDT [facility] Chloride, Plasma 105 97 - 107 mmol/L 01/12/2025 10:02 AM EDT [facility] CO2, Plasma 21(L) 22 - 29 mmol/L 01/12/2025 10:02 AM EDT [facility] Anion Gap 12 6 - 16 mmol/L 01/12/2025 10:02 AM EDT [facility] Total Calcium, Plasma 9.7 8.9 - 10.2 mg/dL 01/12/2025 10:02 AM EDT [facility] Total Protein 6.1(L) 6.3 - 7.9 g/dL 01/12/2025 10:02 AM EDT [facility] Albumin, Plasma 3.9 3.5 - 5.2 g/dL 01/12/2025 10:02 AM EDT [facility] AST, Plasma 28 10 - 35 U/L 01/12/2025 10:02 AM EDT [facility] ALT, Plasma 12 10 - 35 U/L 01/12/2025 10:02 AM EDT [facility] Alkaline Phosphatase, Plasma 43(L) 46 - 142 U/L 01/12/2025 10:02 AM EDT [facility] Total Bilirubin, Plasma 0.5 0.2 - 1.1 mg/dL 01/12/2025 10:02 AM EDT [facility] eGFRcr 48.1 mL/min/1.7 3m*2 01/12/2025 10:02 AM EDT [facility] Comment:Reported eGFRcr in m L/min/1.73m2 is based the CKD-EPI 2020 equation that does not use a race coefficient. Blood Blood sample taken from central line / Unknown (Port) Long-term Catheter / Unknown 01/12/2025 9:15 AM EDT 01/12/2025 9:33 AM EDT us New Mckinney MD LAB BLOOD ORDERABLES Final Re sult [facility] [address] [place] [address] documented in this encounter Visit Diagnoses Diagnosis [...] as of this encounter Care Teams Superintendent Stations Relationship Specialty Start Date End Date Jevon Vazquez MD [address] [place] [address] #1 #1 [place] [address] PCP - General 03/23/22 documented as of this encounter
--- OUTSIDE RECORDS SUMMARY | 2025-01-27 14:00 | XMS_ITS | Encounter Summary ---
Author Organization Healthcare Address [address] [place] [address] Care Team Providers Care International Recruiter Name Role Phone Jevon Vazquez MD Primary Care Provider [phone] Reason for Visit * Reason Comments Labs Port Flush Encounter Details Date Type Department Care Team ([facility] Contact Info) Description 01/27/2025 3:00 PM EDT Clinical Support [facility] Hematology/BMT and Cellular Therapy Program [address] [place] [phone] Oscar Cortez, RN Social History Tobacco Use [...] ([facility] Contact Info) Description 03/03/2025 1:00 PM EST Clinical Support [facility] Hematology/BMT and Cellular Therapy Program [address] [phone] 03/03/2025 1:30 PM EST Office Visit [facility] Hematology/BMT and Cellular Therapy Program [address] [phone] Zonia Hoffman, ELECTRON BEAM PHOTO MASK TECHNICIAN 800 [facility] [address] [place] [phone] documented as of this encounter Visit Diagnoses Not on filedocumented in this encounter Additional Health Concerns Assessment Noted Time A fall risk assessment has been complete d for the patient 01/27/2025 3:25 PM EDT A Body Mass Index follow-up plan has been documented for the patient 05/28/2024 1:52 PM EST documented as of this encounter Care Teams International Recruiter Relationship Specialty Start Date End Date Jevon Vazquez MD [address] [place] [address] #1 #1 [place] [phone] PCP - General 03/23/22 documented as of this encounter
--- OUTSIDE RECORDS SUMMARY | 2025-01-27 14:30 | XMS_ITS | Encounter Summary ---
Author Organization [facility] Address [address] 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) New Mckinney MD [address] [phone] Phone: tel: fax: [place] [address] Phone: tel: Referral ID Status Reason Start Date Expiration Date Visits Requested Visits Authorized [id number] Authorized Specialty Services Required 5 07/29/2026 1 1 * Consultation (Urgent) - Authorized Specialty Diagnoses / Procedures Referred By Contac t Referred To Contact Medical Oncology Diagnoses 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) New Mckinney MD [address] [place] [phone] Phone: tel: fax: [facility] [address] [place] [address] Phone: tel: Referral ID Status Reason Start Date Expiration Date Visits Requested Visits Authorized [id number] Authorized Specialty Services Required 5 07/29/2026 1 1 Encounter Details Date Type Department Care Team (Latest Contact Info) Description 01/27/2025 3:30 PM EDT Office Visit [facility] Hematology/BMT and Cellular Therapy Program [address] [place] [address] New Mckinney MD 800 [facility] [address] [place] [address] Encounter for antineoplastic immunotherapy (Primary [...] k/??L. 12/2023- seen by Dr. Manzano in [facility] for evaluation of anemia and lymphocytosis. [...] interphase cells examined show a deletion of [id number]. Next generation sequencing: Abnormal: TP53 (c.814G>A; p.[id number]) frequency 45%, DMNT3A (c.1522delC; p.[id number]) frequency 48%, RUNX1 (c.336_338delGCC; p.[id number]) frequency 35% Azacitidine + Venetoclax Cycle 1: [...] 5x/week monthly. - Will send referrals to [facility] and [facility] for clinical trial evaluations. 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 Check CBC x 3 times/week at [facility] Labs reviewed today, Hgb 7.7 , [...] Gerardo Pandey D.O. Hematology and Oncology Fellow [facility] Patient care and management [...] understand that therapeutic options are limited, and vvyyf-wk-lbmv discussions remain essential moving forward. We will start oral decitabine and refer to [facility] and [facility] for clinical trial evaluations * Progress [...] Cycle 2: 03/22/24 Assessment/Plan: Rx sent to [facility]. Refills due 02/2025. Patient will return to [...] Encounters Date Type Department Care Team ([facility] st Contact Info) Description 03/03/2025 1:00 PM EST Clinical Support [facility] Hematology/BMT and Cellular Therapy Program [address] [place] [phone] 03/03/2025 1:30 PM EST Office Visit [facility] Hematology/BMT and Cellular Therapy Program [address] [phone] Zonia Hoffman, LEAD NURSE [address] [facility] [address] [place] [phone] Scheduled Referrals Name Type Priority Associated Diagnoses [...] 99 mg/dL 01/27/2025 4:[address] [facility] BUN, Plasma 22 8 - 23 mg/dL 01/27/2025 4:[address] [facility] Creatinine, Plasma 1.10 0.60 - 1.10 mg/dL 01/27/2025 4:[address] [facility] BUN/Creatinine Ratio 20 01/27/2025 4:[address] [facility] Sodium, Plasma 138 136 - 145 mmol/L 01/27/2025 4:[address] [facility] Potassium, Plasma 4.6 3.6 - 4.9 mmol/L 01/27/2025 4:[address] [facility] Chloride, Plasma 106 97 - 107 mmol/L 01/27/2025 4:[address] [facility] CO2, Plasma 22 22 - 29 mmol/L 01/27/2025 4:[address] [facility] Anion Gap 10 6 - 16 mmol/L 01/27/2025 4:[address] [facility] Total Calcium, Plasma 9.6 8.9 - 10.2 mg/dL 01/27/2025 4:[address] [facility] Total Protein 6.2(L) 6.3 - 7.9 g/dL 01/27/2025 4:[address] [facility] Albumin, Plasma 3.9 3.5 - 5.2 g/dL 01/27/2025 4:[address] [facility] AST, Plasma 33 10 - 35 U/L 01/27/2025 4:[address] [facility] ALT, Plasma 11 10 - 35 U/L 01/27/2025 4:[address] [facility] Alkaline Phosphatase, Plasma 43(L) 46 - 142 U/L 01/27/2025 4:[address] [facility] Total Bilirubin, Plasma 0.5 0.2 - 1.1 mg/dL 01/27/2025 4:[address] [facility] eGFRcr 52.8 mL/min/1.7 3m*2 01/27/2025 4:[address] [facility] Comment:Reported eGFRcr in m L/min/1.73m2 is based the CKD-EPI 2020 equation that does not use a race coefficient. Blood Blood sample taken from central line / Unknown (Port) Long-term Catheter / Unknown 01/27/2025 3:00 PM EDT 01/27/2025 3:54 PM EDT us New Mckinney MD LAB BLOOD ORDERABLES Final Re sult [facility] [address] [place] [address] * (ABNORMAL) CBC and Differential (01/27/2025 3:00 PM EDT) WBC Count 1.22(L) 3.70 - 10.30 10*3/uL LAB HEMATOLOGY METHOD 01/27/2025 3:21 PM EDT [facility] RBC Count 2.90(L) 3.90 - 5.20 10*6/uL LAB HEMATOLOGY METHOD 01/27/2025 3:21 PM EDT [facility] HGB 8.9(L) 11.2 - 15.7 g/dL LAB HEMATOLOGY METHOD 01/27/2025 3:21 PM EDT [facility] HCT 26.3(L) 34.0 - 45.0 % LAB HEMATOLOGY METHOD 01/27/2025 3:21 PM EDT [facility] Platelet Count 23(L) 155 - 369 10*3/uL LAB HEMATOLOGY METHOD 01/27/2025 3:21 PM EDT [facility] MCV 91 79 - 98 fL LAB HEMATOLOGY METHOD 01/27/2025 3:21 PM EDT [facility] MCH 30.7 26.0 - 32.0 pg LAB HEMATOLOGY METHOD 01/27/2025 3:21 PM EDT [facility] MCHC 33.8 30.7 - 35.5 g/dL LAB HEMATOLOGY METHOD 01/27/2025 3:21 PM EDT [facility] RDW 17.7(H) 11.5 - 14.5 % LAB HEMATOLOGY METHOD 01/27/2025 3:21 PM EDT [facility] MPV 9.0 8.8 - 12.5 fL LAB HEMATOLOGY METHOD 01/27/2025 3:21 PM EDT [facility] nRBC 2.5(H) <=0.0 per 100 WBCs LAB HEMATOLOGY METHOD 01/27/2025 3:21 PM EDT [facility] Differential Type Automated LAB HEMATOLOGY METHOD 01/27/2025 3:21 PM EDT [facility] Neutrophils % 9 % LAB HEMATOLOGY METHOD 01/27/2025 3:21 PM EDT [facility] Lymphocytes % 78 % LAB HEMATOLOGY METHOD 01/27/2025 3:21 PM EDT [facility] Monocytes % 12 % LAB HEMATOLOGY METHOD 01/27/2025 3:21 PM EDT [facility] Eosinophils % 1 % LAB HEMATOLOGY METHOD 01/27/2025 3:21 PM EDT [facility] Basophils % 0 % LAB HEMATOLOGY METHOD 01/27/2025 3:21 PM EDT [facility] Immature Granulocytes % 0 % LAB HEMATOLOGY METHOD 01/27/2025 3:21 PM EDT [facility] Neutrophils Absolute 0.11(LL) 1.60 - 6.10 10*3/uL LAB HEMATOLOGY METHOD 01/27/2025 3:21 PM EDT [facility] Lymphocytes Absolute 0.95(L) 1.20 - 3.90 10*3/uL LAB HEMATOLOGY METHOD 01/27/2025 3:21 PM EDT [facility] Monocytes Absolute 0.15(L) 0.30 - 0.90 10*3/uL LAB HEMATOLOGY METHOD 01/27/2025 3:21 PM EDT [facility] Eosinophils Absolute 0.01 0.00 - 0.50 10*3/uL LAB HEMATOLOGY METHOD 01/27/2025 3:21 PM EDT [facility] Basophils Absolute 0.00 0.00 - 0.10 10*3/uL LAB HEMATOLOGY METHOD 01/27/2025 3:21 PM EDT [facility] Immature Granulocytes Absolute 0.00 0.00 - 0.06 10*3/uL LAB HEMATOLOGY METHOD 01/27/2025 3:21 PM EDT [facility] Blood Blood sample taken from central line / Unknown (Port) Long-term Catheter / Unknown 01/27/2025 3:00 PM EDT 01/27/2025 3:12 PM EDT Narrative [facility] - 01/27/2025 3:21 PM EDT Therapeutic decision making should be based on absolute values, rather than percentages. New Mckinney MD LAB BLOOD ORDERABLES Final Re sult [facility] [address] [place] [address] documented in this encounter Visit Diagnoses Diagnosis [...] of this encounter Care Teams Nursing Home Physician Relationship Specialty Start Date End Date Jevon Vazquez MD [address] [place] [address] #1 #1 [place]P [place] [address] PCP - General 03/23/22 documented as of this encounter
--- OUTSIDE RECORDS SUMMARY | 2025-02-20 09:03 | XMS_ITS | Encounter Summary ---
Author Organization Healthcare Address [address] [place] [address] Care Team Providers Care Airconditioning Drafting Officer Name Role Phone Jevon Vazquez MD Primary Care Provider [phone] Encounter Details Date Type Department Care Team [...] Hematology/BMT and Cellular Therapy Program [address] [phone] 03/03/2025 1:30 PM EST Office Visit [facility] Hematology/BMT and Cellular Therapy Program [address] [phone] Zonia Hoffman, HOTEL OR MOTEL ROOM SERVICE SUPERVISOR 800 [facility] [address] [place] [phone] documented as of this encounter Visit Diagnoses Not on filedocumented in this encounter Additional Health Concerns Assessment Noted Time A fall risk assessment has been complete d for the patient 09/30/2024 9:33 AM EDT A Body Mass Index follow-up plan has been documented for the patient 05/28/2024 1:52 PM EST documented as of this encounter Care Teams Airconditioning Drafting Officer Relationship Specialty Start Date End Date Jevon Vazquez MD [address] [place] [address] #1 #1 [place] [address] PCP - General 03/23/22 documented as of this encounter
--- OUTSIDE RECORDS SUMMARY | 2025-02-20 09:03 | XMS_ITS ---
Author Organization Healthcare Address [address] [place] [address] Care Team Providers Care Lubrication Servicer Name Role Phone Jevon Vazquez MD Primary Care Provider [phone] Active Problems Problem Noted Date Diagnosed Date [...]
--- OUTSIDE RECORDS SUMMARY | 2025-02-20 09:03 | XMS_ITS | Encounter Summary ---
Author Organization Healthcare Address [address] [place] [address] Care Team Providers Care Earth Observations Chief Scientist Name Role Phone Jevon Vazquez MD Primary Care Provider [phone] Encounter Details Date Type Department Care Team [...] Hematology/BMT and Cellular Therapy Program [address] [phone] 03/03/2025 1:30 PM EST Office Visit [facility] Hematology/BMT and Cellular Therapy Program [address] [address] Zonia Hoffman, SHAGGER 800 [facility] [address] [place] [phone] documented as of this encounter Visit Diagnoses Not on filedocumented in this encounter Additional Health Concerns Assessment Noted Time A fall risk assessment has been complete d for the patient 09/30/2024 9:33 AM EDT A Body Mass Index follow-up plan has been documented for the patient 05/28/2024 1:52 PM EST documented as of this encounter Care Teams Earth Observations Chief Scientist Relationship Specialty Start Date End Date Jevon Vazquez MD [address] [place] [address] #1 #1 [place] [address] PCP - General 03/23/22 documented as of this encounter
--- OUTSIDE RECORDS SUMMARY | 2025-02-20 09:03 | XMS_ITS | Encounter Summary ---
Author Organization [facility] Address [address] [place] [address] Care Team Providers Care Global Category Manager Name Role Phone Jevon Vazquez MD Primary Care Provider [phone] Reason for Visit * Reason Comments Med Refill Encounter Details Date Type Department Care Team ([facility] Contact Info) Description 02/02/2025 Refill [facility] Hematology/BMT and Cellular Therapy Program [address] [phone] Zonia Hoffman, DOCUMENT CLERK 800 [facility] [address] [place] [phone] Social History Tobacco Use Types Packs/Day Years [...] [facility] Contact Info) Description 03/03/2025 1:00 PM EST Clinical Support [facility] Hematology/BMT and Cellular Therapy Program [address] [phone] 03/03/2025 1:30 PM EST Office Visit [facility] Hematology/BMT and Cellular Therapy Program [address] [phone] Zonia Hoffman, DOCUMENT CLERK 800 [facility] [address] [place] [address] documented as of this encounter Visit Diagnoses Not on filedocumented in this encounter Additional Health Concerns Assessment Noted Time A fall risk assessment has been complete d for the patient 01/27/2025 3:25 PM EDT A Body Mass Index follow-up plan has been documented for the patient 05/28/2024 1:52 PM EST documented as of this encounter Care Teams Global Category Manager Relationship Specialty Start Date End Date Jevon Vazquez MD [address] [place] [address] #1 #1 [place] [address] PCP - General 03/23/22 documented as of this encounter
--- OUTSIDE RECORDS SUMMARY | 2025-02-20 09:03 | XMS_ITS | Encounter Summary ---
Author Organization [facility] Address [address] [place] [address] Care Team Providers Care Service Aide Name Role Phone Jevon Vazquez MD Primary Care Provider [phone] Encounter Details Date Type Department Care Team ([facility] Contact Info) Description 01/07/2025 Telephone [facility] Hematology/BMT and Cellular Therapy Program [address] [phone] Sabine Clemons MD 800 [facility] [address] [place] [phone] Social History Tobacco Use Types Packs/Day Years [...] [facility] Contact Info) Description 03/03/2025 1:00 PM EST Clinical Support [facility] Hematology/BMT and Cellular Therapy Program [address] [phone] 03/03/2025 1:30 PM EST Office Visit [facility] Hematology/BMT and Cellular Therapy Program [address] [phone] Zonia Hoffman, ELECTRONIC HEALTH RECORDS SPECIALIST 800 [facility] [address] [place] [address] documented as of this encounter Visit Diagnoses Not on filedocumented in this encounter Additional Health Concerns Assessment Noted Time A fall risk assessment has been complete d for the patient 09/30/2024 9:33 AM EDT A Body Mass Index follow-up plan has been documented for the patient 05/28/2024 1:52 PM EST documented as of this encounter Care Teams Service Aide Relationship Specialty Start Date End Date Jevon Vazquez MD [address] [place] [address] #1 #1 [place] [address] PCP - General 03/23/22 documented as of this encounter
--- OUTSIDE RECORDS SUMMARY | 2025-02-20 09:03 | XMS_ITS | Encounter Summary ---
Author Organization [facility] Address [address] [place] [address] Care Team Providers Care Tier Over Name Role Phone Jevon Vazquez MD Primary Care Provider [phone] Reason for Visit * Reason Comments Med Refill Encounter Details Date Type Department Care Team ([facility] Contact Info) Description 01/07/2025 Refill [facility] Hematology/BMT and Cellular Therapy Program [address] [phone] Zonia Hoffman, QUALITY COORDINATOR 800 [facility] [address] [place] [phone] Social History Tobacco Use Types Packs/Day Years [...] Upcoming Encounters Date Type Department Care Team ([facility] Contact Info) Description 03/03/2025 1:00 PM EST Clinical Support [facility] Hematology/BMT and Cellular Therapy Program [address] [phone] 03/03/2025 1:30 PM EST Office Visit [facility] Hematology/BMT and Cellular Therapy Program [address] [phone] Zonia Hoffman, QUALITY COORDINATOR 800 [facility] [address] [place] [address] documented as of this encounter Visit Diagnoses Not on filedocumented in this encounter Additional Health Concerns Assessment Noted Time A fall risk assessment has been complete d for the patient 09/30/2024 9:33 AM EDT A Body Mass Index follow-up plan has been documented for the patient 05/28/2024 1:52 PM EST documented as of this encounter Care Teams Tier Over Relationship Specialty Start Date End Date Jevon Vazquez MD [address] [place] [address] #1 #1 [place] [address] PCP - General 03/23/22 documented as of this encounter
--- OUTSIDE RECORDS SUMMARY | 2025-02-20 09:03 | XMS_ITS | Encounter Summary ---
Author Organization Healthcare Address [address] [place] [address] Care Team Providers Care Flying Instructor Name Role Phone Jevon Vazquez MD Primary Care Provider [phone] Encounter Details Date Type Department Care Team ([facility] Contact Info) Description 02/16/2025 Orders Only [facility] Hematology/BMT and Cellular Therapy Program [address] [phone] 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, RN [facility]AT[facility] PROGRAM CLINIC Social [...] Team ([facility] Contact Info) Description 03/03/2025 1:00 PM EST Clinical Support [facility] Hematology/BMT and Cellular Therapy Program [address] [phone] 03/03/2025 1:30 PM EST Office Visit [facility] Hematology/BMT and Cellular Therapy Program [address] [phone] Zonia Hoffman, QUALITY ASSURANCE MONITOR CHASSIS 800 [facility] [address] [place] [phone] documented as of this encounter Visit Diagnoses Not on filedocumented in this encounter Additional Health Concerns Assessment Noted Time A fall risk assessment has been complete d for the patient 01/27/2025 3:25 PM EDT A Body Mass Index follow-up plan has been documented for the patient 05/28/2024 1:52 PM EST documented as of this encounter Care Teams Flying Instructor Relationship Specialty Start Date End Date Jevon Vazquez MD [address] [place] [address] #1 #1 [place] [address] PCP - General 03/23/22 documented as of this encounter
--- OUTSIDE RECORDS SUMMARY | 2025-02-20 09:03 | XMS_ITS | Encounter Summary ---
Author Organization Healthcare Address [address] [place] [address] Care Team Providers Care Body Shop Technician Name Role Phone Jevon Vazquez MD Primary Care Provider [phone] Encounter Details Date Type Department Care Team [...] Hematology/BMT and Cellular Therapy Program [address] [phone] 03/03/2025 1:30 PM EST Office Visit [facility] Hematology/BMT and Cellular Therapy Program [address] [phone] Zonia Hoffman, INTER FOLD ROLL CUTTER 800 [facility] [address] [place] [phone] documented as of this encounter Visit Diagnoses Not on filedocumented in this encounter Additional Health Concerns Assessment Noted Time A fall risk assessment has been complete d for the patient 09/30/2024 9:33 AM EDT A Body Mass Index follow-up plan has been documented for the patient 05/28/2024 1:52 PM EST documented as of this encounter Care Teams Body Shop Technician Relationship Specialty Start Date End Date Jevon Vazquez MD [address] [place] [address] #1 #1 [place] [address] PCP - General 03/23/22 documented as of this encounter
--- OUTSIDE RECORDS SUMMARY | 2025-02-20 09:03 | XMS_ITS | Encounter Summary ---
Author Organization Healthcare Address [address] [place] [address] Care Team Providers Care Hospital Coder Name Role Phone Jevon Vazquez MD Primary Care Provider [phone] Encounter Details Date Type Department Care Team [...] Hematology/BMT and Cellular Therapy Program [address] [phone] 03/03/2025 1:30 PM EST Office Visit [facility] Hematology/BMT and Cellular Therapy Program [address] [phone] Zonia Hoffman, ACID PAINTER 800 [facility] [address] [place] [phone] documented as of this encounter Visit Diagnoses Not on filedocumented in this encounter Additional Health Concerns Assessment Noted Time A fall risk assessment has been complete d for the patient 09/30/2024 9:33 AM EDT A Body Mass Index follow-up plan has been documented for the patient 05/28/2024 1:52 PM EST documented as of this encounter Care Teams Hospital Coder Relationship Specialty Start Date End Date Jevon Vazquez MD [address] [place] [address] #1 #1 [place] [address] PCP - General 03/23/22 documented as of this encounter
--- OUTSIDE RECORDS SUMMARY | 2025-02-20 09:03 | XMS_ITS | Encounter Summary ---
Author Organization Healthcare Address [address] [place] [address] Care Team Providers Care Agency Director Name Role Phone Jevon Vazquez MD [...] Hematology/BMT and Cellular Therapy Program [address] [phone] 03/03/2025 1:30 PM EST Office Visit [facility] Hematology/BMT and Cellular Therapy Program [address] [phone] Zonia Hoffman, AUTOMATION APPLICATION ENGINEER 800 [facility] [address] [place] [phone] documented as of this encounter Visit Diagnoses Not on filedocumented in this encounter Additional Health Concerns Assessment Noted Time A fall risk assessment has been complete d for the patient 09/30/2024 9:33 AM EDT A Body Mass Index follow-up plan has been documented for the patient 05/28/2024 1:52 PM EST documented as of this encounter Care Teams Agency Director Relationship Specialty Start Date End Date Jevon Vazquez MD [address] [place] [address] #1 #1 [place] [address] PCP - General 03/23/22 documented as of this encounter
--- OUTSIDE RECORDS SUMMARY | 2025-02-20 09:03 | XMS_ITS | Encounter Summary ---
Author Organization [facility] Address [address] [place] [address] Care Team Providers Care Restaurant Recruiter Name Role Phone Jevon Vazquez MD Primary Care Provider [phone] Reason for Visit * Reason Comments Med Refill Encounter Details Date Type Department Care Team ([facility] Contact Info) Description 01/30/2024 Refill [facility] Hematology/BMT and Cellular Therapy Program [address] [phone] New Mckinney MD 800 [facility] [address] [place] [phone] Social History Tobacco Use Types Packs/Day Years [...] Hematology/BMT and Cellular Therapy Program [address] [phone] 03/03/2025 1:30 PM EST Office Visit [facility] Hematology/BMT and Cellular Therapy Program [address] [phone] Zonia Hoffman, MANUFACTURING SHIFT SUPERVISOR 800 [facility] [address] [place] [address] documented as of this encounter Visit Diagnoses Not on filedocumented in this encounter Additional Health Concerns Assessment Noted Time A fall risk assessment has been complete d for the patient 01/11/2024 9:16 AM EDT A Body Mass Index follow-up plan has been documented for the patient 01/21/2024 6:16 AM EDT documented as of this encounter Care Teams Restaurant Recruiter Relationship Specialty Start Date End Date Jevon Vazquez MD [address] [place] [address] #1 #1 [place] [address] PCP - General 03/23/22 documented as of this encounter
--- OUTSIDE RECORDS SUMMARY | 2025-02-20 09:03 | XMS_ITS | Encounter Summary ---
Author Organization Healthcare Address [address] [place] [address] Care Team Providers Care Web Methods Developer Name Role Phone Jevon Vazquez MD Primary Care Provider [phone] Encounter Details Date Type Department Care Team (Late Contact Info) Description 01/16/2025 Telephone [facility] Hematology/BMT and Cellular Therapy Program [address] [place] [address] [place] [address] Daxa Elliott RN [facility] Social History Tobacco Use [...] Hematology/BMT and Cellular Therapy Program [address] [place] [address] 03/03/2025 1:30 PM EST Office Visit PAV Hematology/BMT and Cellular Therapy Program 750 [facility], [facility] [place] [phone] Zonia Hoffman, CUSTOMER SERVICE REP 800 [facility] [address] [place] [phone] documented as of this encounter Visit Diagnoses Not on filedocumented in this encounter Additional Health Concerns Assessment Noted Time A fall risk assessment has been complete d for the patient 09/30/2024 9:33 AM EDT A Body Mass Index follow-up plan has been documented for the patient 05/28/2024 1:52 PM EST documented as of this encounter Care Teams Web Methods Developer Relationship Specialty Start Date End Date Jevon Vazquez MD [address] [place] [address] #1 #1 [place] [address] PCP - General 03/23/22 documented as of this encounter
--- OUTSIDE RECORDS SUMMARY | 2025-02-20 09:04 | XMS_ITS | Encounter Summary ---
Author Organization [facility] Address [address] [place] [address] Care Team Providers Care Fine Arts Packer Name Role Phone Jevon Vazquez MD Primary Care Provider [phone] Reason for Referral * Genetic Testing (Routine) - Closed Specialty Diagnoses / Procedures Referred By Rebecca Referred To Contact Lab Diagnoses Myelodysplastic syndrome (CMS/HCC) Procedures Cytogenetics Testing, Oncology New Mckinney MD [address] [address] Phone: tel: fax: Referral ID Status Reason Start Date Expiration Date Visits Re quested Visits Authorized [id number] Closed 12/29/2024 06/30/2026 1 1 * Genetic Testing (Routine) - Authorized Specialty Diagnoses / Procedures [facility] By [facility] Referred To Contact Lab Diagnoses Myelodysplastic syndrome (CMS/HCC) Procedures Leukemia/Lymphoma - Immunophenotyping by Flow Cytometry New Mckinney MD 800 [facility] [address] [address] Phone: tel: fax: Referral ID Status Reason Start Date Expiration Date V isits Requested Visits Authorized [id number] Authorized 12/29/2024 06/30/2026 1 1 * Genetic Testing (Routine) - Authorized Specialty Diagnoses / Procedures Referred By [facility] Referred To Contact Lab Diagnoses Myelodysplastic syndrome (CMS/HCC) Procedures Bone marrow exam New Mckinney MD 800 [facility] [address] [place] [phone] Phone: tel: fax: Referral ID Status Reason Start Date Expiration Date V isits Requested Visits Authorized [id number] Authorized 12/29/2024 06/30/2026 1 1 Encounter Details Date Type Department Care Team ([facility] Contact Info) Description 12/29/2024 Orders Only [facility] Hematology/BMT and Cellular Therapy Program [address] [place] [address] New Mckinney MD 800 [facility] [address] [place] [phone] Myelodysplastic syndrome (CMS/HCC) (Primary Dx) Social [...] Hematology/BMT and Cellular Therapy Program [address] [place] [address] 03/03/2025 1:30 PM EST Office Visit [facility] Hematology/BMT and Cellular Therapy Program [address] [place] [address] Zonia Hoffman APRN 800 [facility] [address] [address] documented as of this encounter Results * Leukemia/Lymphoma - Immunophenotyping by Flow Cytometry (01/12/2025 9:55 AM EDT) Clinical Indication MDS 01/12/2025 4:19 PM EDT [facility] Flow Cytometry Interpretation APPROXIMATELY 27% MYELOID BLASTS EXPRESSING CD34, CD117, VARIABLE CD33, PARTIAL CD56, VARIABLE HLA-DR, PARTIAL DIM CD7, CD38 AND DIM CD45, SEE COMMENT, BBONE MARROW ASPIRATE. 01/12/2025 4:19 PM EDT [facility] Comments Specimen viability is [...] surface light chains 01/12/2025 4:19 PM EDT [facility] Disclaimer This test was developed and [...] clinical laboratory testing. 01/12/2025 4:19 PM EDT [facility] Pathologist Signature Reviewed by: Asad Hartman MD 01/12/2025 4:19 PM EDT [facility] MRD Indicated Test Not Indicated 4:19 PM EDT [facility] Bone Marrow Specimen from bone marrow obtained by aspiration / Unknown Non-blood Collection / Unknown 01/12/2025 9:55 AM EDT 01/12/2025 1:48 PM EDT us New Mckinney MD LAB FLOW CYTOMETRY ORDERABLES Final Result [facility] [address] [place] [address] * Bone marrow exam (01/12/2025 9:55 AM EDT) Case Report Bone Marrow Case: [id number] Authorizing Provider: New Mckinney MD Collected: 01/12/2025 0955 Ordering Location: [facility] Hematology/BMT and Received: 01/12/2025 [facility] Cellular Therapy Program Pathologist: Asad Hartman MD Specimens: A) - Bone Marrow Aspirate, left B) - Bone Marrow Biopsy, left C) - Peripheral Blood for Bone Marrow 5:16 PM EDT [facility] Cytogenetics Report, Addendum Chromosome Analysis Result: Giemsa-banded metaphase cells from unstimulated bone marrow cultures showed the following chromosome pattern: 43~44,X,-X,add(5)( q23),del(5)(q13q33 ),todd(7)ins?(7)(q1 1.2q11.2)t(7;12)(q 11.2;q13),-12,todd( 17)add(17)(p13.2)a dd(17)(q21)[16]/88 ,XX,idemx2[cp3]/46 ,XY[1] Interpretation: Abnormal female chromosome analysis. 95% of metaphase cells analyzed showed clonal abnormalities consistent with this patient's previous abnormal results (see [facility]-[id number]). 5:16 PM EDT [facility] Addendum electronically signed by Asad Hartman MD on 01/23/2025 at 1716 EDT Final Diagnosis PERIPHERAL BLOOD AND BONE MARROW, LEFT POSTERIOR ILIAC CREST, (PERIPHERAL SMEAR, ASPIRATE SMEAR, AND CORE BIOPSY): - HYPOCELLULAR BONE MARROW WITH MARKEDLY DECREASED MEGAKARYOCYTES, DECREASED MATURING GRANULOPOIESIS, APPROXIMATELY 7-10% VARIABLY DISTRIBUTED BLASTS AND MORE THAN 50% RING SIDEROBLASTS, SEE COMMENT. 5:16 PM EDT [facility] at 0941 EDT Comment The discrepancy between blasts percentage by morphologic assessment and flow cytometric analysis is due to erythroid precursors that constitute majority of bone marrow cellularity and are removed by flow cytometry. 5:16 PM EDT [facility] Clinical Information MDS 01/14 5:16 PM EDT [facility] CBC and Differential PERIPHERAL [...] cells. Platelets are decreased. 5:16 PM EDT [facility] Bone Marrow Differential BONE MARROW DIFFERENTIAL: 300 cells Normal Patient Neutrophils 15-50 12 Metamyelocytes 4-19 0 Myelocytes 1-18 1 Promyelocytes 1-8 0 Blasts 0-2 7 Monocytes 0-5 7 Erythroid 16-38 61 Lymphocytes 3-24 7 Eosinophils 0-6 3 Basophils 0-2 0 Plasma cells 0-4 2 Other 5:16 PM EDT [facility] Aspirate Smear The bone [...] of erythroid precursors. 5 5:16 PM EDT [facility] Core Biopsy CELLULARITY: Variably [...] trabeculae are normal. 5 5:16 PM EDT [facility] Special and Immunohistochemical Stains Immunohistochemica l [...] performed at the [facility], [address] [place] [address]. All tests reported here, except those addressing [...] negativity on decalcified specimens. 5:16 PM EDT [facility] Flow Cytometry Interpretation Flow cytometric analysis demonstrates approximately 27% population of myeloid blasts in this patient with history of myelodysplastic syndrome; expressing CD34, CD117, variable CD33, partial CD56, variable HLA-DR, partial dim CD7, CD38 and dim CD45 ([id number]). 5:16 PM EDT [facility] Gross Description B. LEFT A single specimen is received in formalin labeled bone marrow biopsy left posterior iliac crest and consists of 1 piece(s) of red/white tissue measuring 0.9 cm in length 0.2 cm in diameter. The specimen is submitted in to Histology for decalcification and routine processing. Cold Time: <1m 5:16 PM EDT [facility] Note: A resident was involved in the service. I attest I examined the relevant preparations for the specimens and confirmed the diagnosis or interpretation. 5:16 PM EDT [facility] Bone Marrow Peripheral blood [...] PATHOLOGY ORDERABLES Edit ed Result - Final [facility] [address] [place] [address] documented in this encounter Visit Diagnoses Diagnosis Myelodysplastic syndrome (CMS/HCC)- Primary Myelodysplastic syndrome, unspecified documented in this encounter Additional Health Concerns Assessment Noted Time A fall risk assessment has been complete d for the patient 09/30/2024 9:33 AM EDT A Body Mass Index follow-up plan has been documented for the patient 05/28/2024 1:52 PM EST documented as of this encounter Care Teams Fine Arts Packer Relationship Specialty Start Date End Date Jevon Vazquez MD [address] [place] [address] #1 #1 [place] [address] PCP - General 03/23/22 documented as of this encounter
--- OUTSIDE RECORDS SUMMARY | 2025-02-20 09:04 | XMS_ITS | Encounter Summary ---
Author Organization Healthcare Address [address] [place] [address] Care Team Providers Care School Crossing Guard Name Role Phone Jevon Vazquez MD Primary Care Provider [phone] Encounter Details Date Type Department Care Team ([facility] Contact Info) Description 01/28/2025 Telephone [facility] Hematology/BMT and Cellular Therapy Program [address] [phone] New Mckinney MD 800 [facility] [address] [place] [phone] Social History Tobacco Use Types Packs/Day Years [...] encounter Miscellaneous Notes * Telephone Encounter - sOcar Covarrubias - 01/28/2025 11:22 AM EDT Called and spoke to patient to inform patient of appointment at [place] on 02/04. Patient was informed that a [employer] message will be sent with information. documented in this encounter Plan of Treatment Upcoming Encounters Date Type Department Care Team ([facility] Contact Info) Description 03/03/2025 1:00 PM EST Clinical Support [facility] Hematology/BMT and Cellular Therapy Program [address] [place] [address] 03/03/2025 1:30 PM EST Office Visit PAV Hematology/BMT and Cellular Therapy Program [address] [place] [address] Zonia Hoffman, OPERATER 800 [facility] [address] [place] [phone] documented as of this encounter Visit Diagnoses Not on filedocumented in this encounter Additional Health Concerns Assessment Noted Time A fall risk assessment has been complete d for the patient 01/27/2025 3:25 PM EDT A Body Mass Index follow-up plan has been documented for the patient 05/28/2024 1:52 PM EST documented as of this encounter Care Teams School Crossing Guard Relationship Specialty Start Date End Date Jevon Vazquez MD [address] [place] [address] #1 #1 [place] [address] PCP - General 03/23/22 documented as of this encounter
--- OUTSIDE RECORDS SUMMARY | 2025-02-20 09:04 | XMS_ITS | Encounter Summary ---
Author Organization Healthcare Address [address] [place] [address] Care Team Providers Care Energy Auditor Name Role Phone Jevon Vazquez MD Primary Care Provider [phone] Encounter Details Date Type Department Care Team [...] Hematology/BMT and Cellular Therapy Program [address] [address] 03/03/2025 1:30 PM EST Office Visit [facility] CC Hematology/BMT and Cellular Therapy Program [address] [phone] Zonia Hoffman, INFERTILITY NURSE 800 [facility] [address] [place] [phone] documented as of this encounter Visit Diagnoses Not on filedocumented in this encounter Additional Health Concerns Assessment Noted Time A fall risk assessment has been complete d for the patient 09/30/2024 9:33 AM EDT A Body Mass Index follow-up plan has been documented for the patient 05/28/2024 1:52 PM EST documented as of this encounter Care Teams Energy Auditor Relationship Specialty Start Date End Date Jevon Vazquez MD [address] [place] [address] #1 #1 [place] [address] PCP - General 03/23/22 documented as of this encounter
--- OUTSIDE RECORDS SUMMARY | 2025-02-20 09:04 | XMS_ITS | Encounter Summary ---
Author Organization [facility] Address [address] 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) New Mckinney MD 800 [facility] [address] [address] Phone: tel: fax: Referral ID Status Reason Start Date Expiration Date Visits Re quested Visits Authorized [id number] Closed 1 1 Reason for Visit * Reason Comments Med Refill Encounter Details Date Type Department Care Team ([facility] st Contact Info) Description 02/18/2025 Refill [facility] CC Hematology/BMT and Cellular Therapy Program [address] [place] [address] New Mckinney MD 800 [facility] [address] [address] Acute myeloid leukemia not having [...] ([facility] st Contact Info) Description 03/03/2025 1:00 PM EST Clinical Support P[facility] CC Hematology/BMT and Cellular Therapy Program 750 [facility], [address] [place] [phone] 03/03/2025 1:30 PM EST Office Visit PAV Hematology/BMT and Cellular Therapy Program 750 [facility], [address] [place] [phone] Zonia Hoffman, INSPECTOR TYPE 800 [facility] [address] [place] [phone] documented as of this encounter Visit Diagnoses [...] documented as of this encounter Care Teams Blocker Hand Relationship Specialty Start Date End Date Jevon Vazquez MD [address] [place] [address] #1 #1 [place] [address] PCP - General 03/23/22 documented as of this encounter
--- OUTSIDE RECORDS SUMMARY | 2025-02-20 09:04 | XMS_ITS | Encounter Summary ---
Author Organization [facility] Address [address] [place] [address] Care Team Providers Care Pen Or Pencil Assembly Machine Operator Name Role Phone Jevon Vazquez MD Primary Care Provider [phone] Reason for Visit * Reason Comments Med Refill Encounter Details Date Type Department Care Team ([facility] Contact Info) Description 02/18/2025 Refill P[facility] CC Hematology/BMT and Cellular Therapy Program [address] [phone] Zonia Hoffman, BELT CHANGER 800 [facility] [address] [place] [phone] Immunosuppressed status (CMS/HCC); Acute myeloid leukemia not having achieved [...] Care Team ([facility] Contact Info) Description 03/03/2025 1:00 PM EST Clinical Support P[facility] CC Hematology/BMT and Cellular Therapy Program [address] [phone] 03/03/2025 1:30 PM EST Office Visit P[facility] CC Hematology/BMT and Cellular Therapy Program [address] [place] [address] Zonia Hoffman, BELT CHANGER 800 [facility] [address] [place] [address] documented as of this encounter Visit Diagnoses Diagnosis Immunosuppressed status (CMS/HCC) 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
--- OUTSIDE RECORDS SUMMARY | 2025-02-20 09:04 | XMS_ITS | Encounter Summary ---
Author Organization [facility] Address [address] [place] [address] Care Team Providers Care Manager Supply Chain Planning Name Role Phone Jevon Vazquez MD Primary Care Provider [phone] Reason for Visit * Reason Comments Med Refill Encounter Details Date Type Department Care Team ([facility] Contact Info) Description 01/05/2025 Refill P[facility] CC Hematology/BMT and Cellular Therapy Program [address] [phone] Zonia Hoffman, INFANTRY WEAPONS OFFICER 800 [facility] [address] [place] [phone] Social History Tobacco Use Types Packs/Day Years [...] ([facility] Contact Info) Description 03/03/2025 1:00 PM EST Clinical Support P[facility] CC Hematology/BMT and Cellular Therapy Program [address] [phone] 03/03/2025 1:30 PM EST Office Visit P[facility] CC Hematology/BMT and Cellular Therapy Program [address] [phone] Zonia Hoffman, INFANTRY WEAPONS OFFICER 800 [facility] [address] [place] [address] documented as of this encounter Visit Diagnoses Not on filedocumented in this encounter Additional Health Concerns Assessment Noted Time A fall risk assessment has been complete d for the patient 09/30/2024 9:33 AM EDT A Body Mass Index follow-up plan has been documented for the patient 05/28/2024 1:52 PM EST documented as of this encounter Care Teams Manager Supply Chain Planning Relationship Specialty Start Date End Date Jevon Vazquez MD [address] [place] [address] #1 #1 [place] [address] PCP - General 03/23/22 documented as of this encounter
--- OUTSIDE RECORDS SUMMARY | 2025-02-20 09:04 | XMS_ITS | Clinical Summary ---
Author Organization [facility] Address [address] [place] [address] Phone Care Team Providers Care Statistician Applied Name Role Phone Jevon Vazquez MD Primary Care Provider [phone] Allergies Active Allergy Reactions Criticality Noted Date [...] L4-5 LAMINECTOMY; Surgeon: Ivan Bartholomew MD; Location: [facility]; Service: Spine Medical History Medical [...] 5.6 % 11/14/2022 2:57 PM EDT PREFERRED [employer], [employer] Est. Avg Glucose 148 mg/dL 11/14/2022 2:57 PM EDT [employer], [employer] Blood VENOUS BLOOD / Unknown Venipuncture / Unknown 11/11/2022 3:46 PM EDT 11/11/2022 3:55 PM EDT Narrative PREFERRED [facility] [facility] - 11/14/2022 2:57 PM [...] Maloney DO CHEMISTRY ORDERABLES Final R esult [employer] [place] [address] [facility] , [address] [place] [id number] * (ABNORMAL) BASIC METABOLIC PANEL (11/11/2022 3:46 PM EDT) Sodium 136 136 - 145 mmol/L 11/11/2022 4:11 PM EDT [facility] Potassium 3.8 3.5 - 5.0 mmol/L 11/11/2022 4:11 PM EDT [facility] Chloride 102 98 - 107 mmol/L 11/11/2022 4:11 PM EDT [facility] Total CO2 24 22 - 29 mmol/L 11/11/2022 4:11 PM EDT [facility] Anion Gap 10 7 - 16 mmol/L 11/11/2022 4:11 PM EDT [facility] Calcium 10.1 8.8 - 10.4 mg/dL 11/11/2022 4:11 PM EDT [facility] Glucose Lvl 147(H) 82 - 100 mg/dL 11/11/2022 4:11 PM EDT [facility] BUN 15 8 - 23 mg/dL 11/11/2022 4:11 PM EDT [facility] Creatinine 0.82 0.51 - 1.30 mg/dL 11/11/2022 4:11 PM EDT [facility] eGFR (CKD-EPIcr 2021) 76 >=60 mL/min/1.7 3 m2 11/11/2022 4:11 PM EDT [facility] Comment:Estimated GFR was ca lculated using the CKD-EPIcr (2020) equation refit without race. The equation is recommended by the National Kidney Foundation - [place] [employer] of Nephrology Task Force. Blood VENOUS BLOOD / Unknown Venipuncture / Unknown 11/11/2022 3:46 PM EDT 11/11/2022 3:54 PM EDT us Leona Hanna DO CHEMISTRY ORDERABLES Final Res ult [facility] [address] [place] [address] * DX BONE DENSITY AXIAL SKELETON (07/25/2022 9:14 AM EDT) Anatomical Region Laterality Modality Dexa Scan 07/25/2022 Narrative 07/25/2022 3:45 PM EDT Indication: The patient is a female age 65 or older who requires a bone density assessment. Study was performed on [employer] 5. Bone Density: Region BMD T-score Z-score [...] Payer (Ef fective 2016-Present) Name:Ashly Hernández Member ID:[id number] Relation to Subscriber:Self Name:Ashly Hernández Subscriber ID:[id number] Payer ID:Not on file Group ID:Not on file Type:Not on file Address: [address] MEDICARE SUPPLEMENT [place]ARE [place] PART A & B [place]ARE [place] PART A AND B Member Subscriber Plan / Payer (Ef fective 2016-Present) Name:Ashly Hernández Member ID:[id number] Relation to Subscriber:Self Name:Ashly Hernández Subscriber ID:[id number] Payer ID:Not on file Group ID:Not on file Type:Not on file Address: [address] MEDICARE SUPPLEMENT [employer] MEDICARE [place] PART A AND B [address] MEDICARE SUPPLEMENT Advance Directives For more information, please contact: [phone] * Full Code (Latest Code Status on File) Date Activated Date Inactivated Comments 11/14/2022 6:53 PM 11/16/2022 7:37 PM * Full Code Date Activated Date Inactivated Comments 11/12/2022 5:17 AM 11/14/2022 6:47 PM Care Teams Statistician Applied Relationship Specialty Start Date End Date Jevon Vazquez MD [address] [place] [address] PCP - General Family Medicine 11/10/22
--- OUTSIDE RECORDS SUMMARY | 2025-02-20 09:04 | XMS_ITS | Encounter Summary ---
Author Organization [facility] Address [address] [place] [address] Care Team Providers Care Charger Name Role Phone Jevon Vazquez MD Primary Care Provider [phone] Encounter Details Date Type Department Care Team (Late st Contact Info) Description 01/27/2025 Telephone [facility] [address] [place] [phone] Emil Hardy, PharmD Social History Tobacco Use [...] PharmD - 01/28/2025 2:40 PM EDT [facility] Specialty Medication Initial Care Plan Ashly [...] Injectable, preservative free 03/21/2024 Moderna COVID-19 Vaccine (Cylinder Press Operator Apprentice) 12+ years 06/12/2020, 07/10/2020, 02/18/2021 Selected lab [...] Patient reports education was provided by [facility]. She denied further education at this time [...] Hematology/BMT and Cellular Therapy Program [address] [phone] 03/03/2025 1:30 PM EST Office Visit [facility] Hematology/BMT and Cellular Therapy Program [address] [phone] Zonia Hoffman, RED HAT LINUX ADMINISTRATOR 800 [facility] [address] [place] [phone] documented as of this encounter Visit Diagnoses Not on filedocumented in this encounter Additional Health Concerns Assessment Noted Time A fall risk assessment has been complete d for the patient 01/27/2025 3:25 PM EDT A Body Mass Index follow-up plan has been documented for the patient 05/28/2024 1:52 PM EST documented as of this encounter Care Teams Charger Relationship Specialty Start Date End Date Jevon Vazquez MD [address] [place] [address] #1 #1 [place] [address] PCP - General 03/23/22 documented as of this encounter
--- OUTSIDE RECORDS SUMMARY | 2025-02-20 09:04 | XMS_ITS | Encounter Summary ---
Author Organization Healthcare Address [address] [place] [address] Care Team Providers Care Head Batcher Name Role Phone Jevon Vazquez MD Primary Care Provider [phone] Encounter Details Date Type Department Care Team [...] Cellular Therapy Program [address] [phone] 03/03/2025 1:30 PM EST Office Visit [facility] CC Hematology/BMT and Cellular Therapy Program [address] [phone] Zonia Hoffman, CUTTER [employer] ROLLS 800 [facility] [address] [place] [phone] documented as of this encounter Visit Diagnoses Not on filedocumented in this encounter Additional Health Concerns Assessment Noted Time A fall risk assessment has been complete d for the patient 09/30/2024 9:33 AM EDT A Body Mass Index follow-up plan has been documented for the patient 05/28/2024 1:52 PM EST documented as of this encounter Care Teams Head Batcher Relationship Specialty Start Date End Date Jevon Vazquez MD [address] [place] [address] #1 #1 [place] [phone] PCP - General 03/23/22 documented as of this encounter
--- OUTSIDE RECORDS SUMMARY | 2025-02-20 09:04 | XMS_ITS | Clinical Summary ---
Author Organization [facility] Address [address] 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 60 tablet 3 10/30/19 25 025 Discontinued fluconazole (Diflucan) 200 MG tabletIndicati ons:Immunosupp ressed status (CMS/HCC) Take 2 tablets by mouth daily. 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) 02/16/2025 Orders Only [facility] Hematology/BMT and Cellular Therapy Program [address] [place] [phone] 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, RN 02/02/2025 Refill [facility] Hematology/BMT and Cellular Therapy Program [address] [place] [phone] Zonia Hoffman, EXECUTIVE PRODUCER 01/28/2025 Telephone [facility] Hematology/BMT and Cellular Therapy Program [address] [place] [phone] New Mckinney MD 01/27/2025 3:30 PM EDT Office Visit [facility] Hematology/BMT and Cellular Therapy Program [address] [place] [phone] New Mckinney MD Encounter for antineoplastic immunotherapy (Primary Dx); 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); Immunosuppressed status (CMS/HCC) 01/27/2025 3:00 PM EDT Clinical Support [facility] Hematology/BMT and Cellular Therapy Program [address] [place] [phone] Oscar Cortez, RN 01/27/2025 Telephone [facility] [address] [place] [phone] Emil Hardy, PharmD 01/27/2025 Telephone [facility] Hematology/BMT and Cellular Therapy Program [address] [phone] Alyson Vivas, AKBAR 01/27/2025 Travel 01/20/2025 Travel 01/16/2025 Telephone [facility] Hematology/BMT and Cellular Therapy Program [address] [phone] Daxa Elliott RN 01/12/2025 10:00 AM EDT Procedure Visit [facility] Hematology/BMT and Cellular Therapy Program [address] [phone] Rebecca Barrientos PA Myelodysplastic syndrome (CMS/HCC); 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) 01/12/2025 9:30 AM EDT Clinical Support [facility] Hematology/BMT and Cellular Therapy Program [address] [phone] 01/12/2025 Travel 01/07/2025 Travel 01/07/2025 Telephone [facility] H[facility]ology/BMT and Cellular Therapy Program [address] [phone] Sabine Clemons MD 01/07/2025 Refill [facility] Hematology/BMT and Cellular Therapy Program [address] [phone] Zonia Hoffman, EXECUTIVE PRODUCER 01/05/2025 Travel 01/05/2025 Refill [facility] Hematology/BMT and Cellular Therapy Program [address] [phone] Zonia Hoffman, EXECUTIVE PRODUCER 12/29/2024 Orders Only [facility] Hematology/BMT and Cellular Therapy Program [address] [phone] New Mckinney MD Myelodysplastic syndrome (CMS/HCC) (Primary Dx) 12/29/2024 Telephone [facility] Hematology/BMT and Cellular Therapy Program 750 [facility], [address] [place] [address] [place] [phone] Bibiana Sepulveda, EXECUTIVE PRODUCER 12/28/2024 Travel 12/26/2024 Travel 12/25/2024 Travel 12/24/2024 Travel 12/23/2024 Travel 12/11/2024 Telephone [facility] Hematology/BMT and Cellular Therapy Program 750 [facility], [address] [place] [phone] New Mckinney MD 12/10/2024 Travel 12/09/2024 Refill [facility] Hematology/BMT and Cellular Therapy Program 750 [facility], [address] [place] [phone] Zonia Hoffman, EXECUTIVE PRODUCER 11/27/2024 Telephone [facility] Hematology/BMT and Cellular Therapy Program [address] [facility], [address] [place] [phone] Zonia Hoffman, EXECUTIVE PRODUCER 11/26/2024 Travel 11/25/2024 Travel 11/24/2024 Travel 11/23/2024 [...] ([facility] st Contact Info) Description 03/03/2025 1:00 PM EST Clinical Support [facility] Hematology/BMT and Cellular Therapy Program [address] [phone] 03/03/2025 1:30 PM EST Office Visit [facility] Hematology/BMT and Cellular Therapy Program [address] [phone] Zonia Hoffman, EXECUTIVE PRODUCER 800 [facility] [address] [place] [phone] Health Maintenance Due Date Last Done Comments [facility]-Medicare Annual Wellness (AWV) 1950 [facility]-/Child/Adol SDOH Screenings 1950 [facility]- SDOH Screenings 1968 [facility]-Adult SDOH Screenings [address] CT Colonography 11/04/1995 Colonoscopy 11/04/1995 FIT-DNA 11/04/1995 FIT 11/04/1995 FOBT 11/04/1995 Sigmoidoscopy 11/04/1995 [facility]-Colorectal Cancer Screening 11/04/1995 [facility]-Breast Cancer Screening 2000 [facility]-RSV Vaccine: 60+ Years or (1 - Risk 60-74 years 1-dose series) 2010 [facility]-Zoster Vaccines (1 of 2) 05/16/2023 03/21/2023 [facility]-Bone Density Scan 07/25/2024 07/25/2022 [id number] Vaccine (4 - 2025-26 season) 2024 02/18/2021, 07/10/2020, 06/12/2020 [facility]-Influenza Vaccine [...] this topic Medical Devices Implanted Type Area Cath Lab Technologist Device Identifier Shelf Expiration Date Model / Serial / Lot Port Clearvue Power 8fr - [id number] Implanted:Qty: 1 on 01/21/2024 by Ness Sargent MD at [facility] Peripherial Vascular-[id number] / / Procedures Procedure Name Priority Date/Time [...] HEMATOLOGY METHOD 01/27/2025 3:21 PM EDT [facility] RBC Count 2.90(L) 3.90 - 5.20 10*6/uL LAB HEMATOLOGY METHOD 01/27/2025 3:21 PM EDT [facility] HGB 8.9(L) 11.2 - 15.7 g/dL LAB HEMATOLOGY METHOD 01/27/2025 3:21 PM EDT [facility] HCT 26.3(L) 34.0 - 45.0 % LAB HEMATOLOGY METHOD 01/27/2025 3:21 PM EDT [facility] Platelet Count 23(L) 155 - 369 10*3/uL LAB HEMATOLOGY METHOD 01/27/2025 3:21 PM EDT [facility] MCV 91 79 - 98 fL LAB HEMATOLOGY METHOD 01/27/2025 3:21 PM EDT [facility] MCH 30.7 26.0 - 32.0 pg LAB HEMATOLOGY METHOD 01/27/2025 3:21 PM EDT [facility] MCHC 33.8 30.7 - 35.5 g/dL LAB HEMATOLOGY METHOD 01/27/2025 3:21 PM EDT [facility] RDW 17.7(H) 11.5 - 14.5 % LAB HEMATOLOGY METHOD 01/27/2025 3:21 PM EDT [facility] MPV 9.0 8.8 - 12.5 fL LAB HEMATOLOGY METHOD 01/27/2025 3:21 PM EDT [facility] nRBC 2.5(H) <=0.0 per 100 WBCs LAB HEMATOLOGY METHOD 01/27/2025 3:21 PM EDT [facility] Differential Type Automated LAB HEMATOLOGY METHOD 01/27/2025 3:21 PM EDT [facility] Neutrophils % 9 % LAB HEMATOLOGY METHOD 01/27/2025 3:21 PM EDT [facility] Lymphocytes % 78 % LAB HEMATOLOGY METHOD 01/27/2025 3:21 PM EDT [facility] Monocytes % 12 % LAB HEMATOLOGY METHOD 01/27/2025 3:21 PM EDT [facility] Eosinophils % 1 % LAB HEMATOLOGY METHOD 01/27/2025 3:21 PM EDT [facility] Basophils % 0 % LAB HEMATOLOGY METHOD 01/27/2025 3:21 PM EDT [facility] Immature Granulocytes % 0 % LAB HEMATOLOGY METHOD 01/27/2025 3:21 PM EDT [facility] Neutrophils Absolute 0.11(LL) 1.60 - 6.10 10*3/uL LAB HEMATOLOGY METHOD 01/27/2025 3:21 PM EDT [facility] Lymphocytes Absolute 0.95(L) 1.20 - 3.90 10*3/uL LAB HEMATOLOGY METHOD 01/27/2025 3:21 PM EDT [facility] Monocytes Absolute 0.15(L) 0.30 - 0.90 10*3/uL LAB HEMATOLOGY METHOD 01/27/2025 3:21 PM EDT [facility] Eosinophils Absolute 0.01 0.00 - 0.50 10*3/uL LAB HEMATOLOGY METHOD 01/27/2025 3:21 PM EDT [facility] Basophils Absolute 0.00 0.00 - 0.10 10*3/uL LAB HEMATOLOGY METHOD 01/27/2025 3:21 PM EDT [facility] Immature Granulocytes Absolute 0.00 0.00 - 0.06 10*3/uL LAB HEMATOLOGY METHOD 01/27/2025 3:21 PM EDT [facility] Blood Blood sample taken from central line / Unknown (Port) Long-term Catheter / Unknown 01/27/2025 3:00 PM EDT 01/27/2025 3:12 PM EDT Narrative [facility] - 01/27/2025 3:21 PM EDT Therapeutic decision making should be based on absolute values, rather than percentages. us New Mckinney MD LAB BLOOD ORDERABLES Final Re sult [facility] [address] [place] [phone] * (ABNORMAL) Comprehensive Metabolic Panel, Plasma (01/27/2025 3:00 PM EDT) Only the most recent of2 resultswithin the time period is included. Glucose, Plasma 89 74 - 99 mg/dL 01/27/2025 4:26 PM EDT [facility] BUN, Plasma 22 8 - 23 mg/dL 01/27/2025 4:26 PM EDT [facility] Creatinine, Plasma 1.10 0.60 - 1.10 mg/dL 01/27/2025 4:26 PM EDT [facility] BUN/Creatinine Ratio 20 01/27/2025 4:26 PM EDT [facility] Sodium, Plasma 138 136 - 145 mmol/L 01/27/2025 4:26 PM EDT [facility] Potassium, Plasma 4.6 3.6 - 4.9 mmol/L 01/27/2025 4:26 PM EDT [facility] Chloride, Plasma 106 97 - 107 mmol/L 01/27/2025 4:26 PM EDT [facility] CO2, Plasma 22 22 - 29 mmol/L 01/27/2025 4:26 PM EDT [facility] Anion Gap 10 6 - 16 mmol/L 01/27/2025 4:26 PM EDT [facility] Total Calcium, Plasma 9.6 8.9 - 10.2 mg/dL 01/27/2025 4:26 PM EDT [facility] Total Protein 6.2(L) 6.3 - 7.9 g/dL 01/27/2025 4:26 PM EDT [facility] Albumin, Plasma 3.9 3.5 - 5.2 g/dL 01/27/2025 4:26 PM EDT [facility] AST, Plasma 33 10 - 35 U/L 01/27/2025 4:26 PM EDT [facility] ALT, Plasma 11 10 - 35 U/L 01/27/2025 4:26 PM EDT [facility] Alkaline Phosphatase, Plasma 43(L) 46 - 142 U/L 01/27/2025 4:26 PM EDT [facility] Total Bilirubin, Plasma 0.5 0.2 - 1.1 mg/dL 01/27/2025 4:26 PM EDT [facility] eGFRcr 52.8 mL/min/1.7 3m*2 01/27/2025 4:26 PM EDT [facility] Comment:Reported eGFRcr in m L/min/1.73m2 is based the CKD-EPI 2020 equation that does not use a race coefficient. Blood Blood sample taken from central line / Unknown (Port) Long-term Catheter / Unknown 01/27/2025 3:00 PM EDT 01/27/2025 3:54 PM EDT us New Mckinney MD LAB BLOOD ORDERABLES Final Re sult [facility] [address] [place] [address] * BIOPSY BONE MARROW (01/12/2025 10:00 AM [...] ),tdod(7)ins?(7)(q1 1.2q11.2)t(7;12)(q 11.2;q13),-12,todd( 17)add(17)(p13.2)a dd(17)(q21)[16]/88 ,XX,idemx2[cp3]/46 ,XY[1] 01/20/2025 12:21 PM EDT [facility] Interpretation Abnormal female chromosome analysis. 95% of metaphase cells analyzed showed clonal abnormalities consistent with this patient's previous abnormal results (see [facility]-[id number]). Clinical correlation is recommended. Note: Per [employer] (CAP) requirement an additional karyotype was [...] inal Result [facility] [address] [place] [address] * Leukemia/Lymphoma - Immunophenotyping by Flow Cytometry [...] lambda surface light chains 01/12/2025 4:[address] [facility] Disclaimer This test was developed and its performance characteristics determined by the Immuno-Molecular Pathology Laboratory at the [facility]. It has not been cleared or approved [...] complexity clinical laboratory testing. 01/12/2025 4:[address] [facility] Pathologist Signature Reviewed by: Asad Hartman MD 01/12/2025 4:[address] [facility] MRD Indicated Test Not Indicated 4:19 PM T [facility] Bone Marrow Specimen from bone marrow obtained by aspiration / Unknown Non-blood Collection / Unknown 01/12/2025 9:55 AM EDT 01/12/2025 1:48 PM EDT New Mckinney MD LAB FLOW CYTOMETRY ORDERABLES Final Result [facility] [address] [place] [address] * Bone marrow exam (01/12/2025 9:55 AM EDT) Case Report Bone Marrow Case: [id number] Authorizing Provider: New Mckinney MD Collected: 01/12/2025 0955 Ordering Location: [facility] Hematology/BMT and Received: 01/12/2025 1143 Cellular Therapy Program Pathologist: Asad Hartman MD Specimens: A) - Bone Marrow Aspirate, left B) - Bone Marrow Biopsy, left C) - Peripheral Blood for Bone Marrow 5:16 PM EDT [facility] Cytogenetics Report, Addendum Chromosome Analysis Result: Giemsa-banded metaphase cells from unstimulated bone marrow cultures showed the following chromosome pattern: 43~44,X,-X,add(5)( q23),del(5)(q13q33 ),todd(7)ins?(7)(q1 1.2q11.2)t(7;12)(q 11.2;q13),-12,todd( 17)add(17)(p13.2)a dd(17)(q21)[16]/88 ,XX,idemx2[cp3]/46 ,XY[1] Interpretation: Abnormal female chromosome analysis. 95% of metaphase cells analyzed showed clonal abnormalities consistent with this patient's previous abnormal results (see [facility]-[id number]). 5:16 PM EDT [facility] [...] RING SIDEROBLASTS, SEE COMMENT. 5:16 PM EDT [facility] at 0941 EDT Comment The discrepancy between blasts percentage by morphologic assessment and flow cytometric analysis is due to erythroid precursors that constitute majority of bone marrow cellularity and are removed by flow cytometry. 5:16 PM EDT [facility] Clinical Information MDS 01/14 5:16 PM EDT [facility] CBC [...] cells. Platelets are decreased. 5:16 PM EDT [facility] Bone Marrow Differential BONE MARROW DIFFERENTIAL: 300 cells Normal Patient Neutrophils 15-50 12 Metamyelocytes 4-19 0 Myelocytes 1-18 1 Promyelocytes 1-8 0 Blasts 0-2 7 Monocytes 0-5 7 Erythroid 16-38 61 Lymphocytes 3-24 7 Eosinophils 0-6 3 Basophils 0-2 0 Plasma cells 0-4 2 Other 5:16 PM EDT [facility] Aspirate Smear The [...] Bony trabeculae are normal. 5:[address] [facility] Special and Immunohistochemical Stains Immunohistochemica l [...] performed at the [facility], [address] [place] [address]. All tests reported here, except those addressing [...] negativity on decalcified specimens. 5:16 PM EDT [facility] Flow Cytometry Interpretation Flow cytometric analysis demonstrates approximately 27% population of myeloid blasts in this patient with history of myelodysplastic syndrome; expressing CD34, CD117, variable CD33, partial CD56, variable HLA-DR, partial dim CD7, CD38 and dim CD45 ([id number]). 5:16 PM EDT [facility] Gross [...] - Final [facility] [address] [place] [address] * Hepatitis C Antibody w/Reflex to HCV Quant PCR (01/07/2024 8:42 AM EDT) Hepatitis C Antibody Negative Negative 01/07/2024 10:13 AM EDT [facility] Blood Venous blood specimen / Unknown Venipuncture / Unknown 01/07/2024 8:42 AM EDT 01/07/2024 9:25 AM EDT New Mckinney MD LAB BLOOD ORDERABLES Final Re sult [facility] [address] [place] [address] from Last 3 Months or Most Recently Relevant to Health [place] [address] ANTH Care Teams Transfill Technician Relationship Specialty Start Date End Date Jevon Vazquez MD [address] [place] [address] #1 #1 [place] [phone] PCP - General 03/23/22
--- OUTSIDE RECORDS SUMMARY | 2025-02-20 09:04 | XMS_ITS | Encounter Summary ---
Author Organization Healthcare Address [address] [place] [address] Care Team Providers Care Photocomposition Keyboard Operator Name Role Phone Jevon Vazquez MD Primary Care Provider [phone] Encounter Details Date Type Department Care Team [...] Hematology/BMT and Cellular Therapy Program [address] [phone] 03/03/2025 1:30 PM EST Office Visit [facility] Hematology/BMT and Cellular Therapy Program [address] [phone] Zonia Hoffman, CATALOG LIBRARIAN 800 [facility] [address] [place] [phone] documented as of this encounter Visit Diagnoses Not on filedocumented in this encounter Additional Health Concerns Assessment Noted Time A fall risk assessment has been complete d for the patient 09/30/2024 9:33 AM EDT A Body Mass Index follow-up plan has been documented for the patient 05/28/2024 1:52 PM EST documented as of this encounter Care Teams Photocomposition Keyboard Operator Relationship Specialty Start Date End Date Jevon Vazquez MD [address] [place] [address] #1 #1 [place] [phone] PCP - General 03/23/22 documented as of this encounter
--- OUTSIDE RECORDS SUMMARY | 2025-02-20 09:04 | XMS_ITS | Encounter Summary ---
Author Organization [facility] Address [address] [place] [address] Care Team Providers Care Capsule Maker Name Role Phone Jevon Vazquez MD Primary Care Provider [phone] Encounter Details Date Type Department Care Team ([facility] Contact Info) Description 01/27/2025 Telephone [facility] Hematology/BMT and Cellular Therapy Program [address] [place] [address] Alyson Vivas RN Social History Tobacco Use [...] Care Team ([facility] Contact Info) Description 03/03/2025 1:00 PM EST Clinical Support [facility] Hematology/BMT and Cellular Therapy Program [address] [place] [address] 03/03/2025 1:30 PM EST Office Visit [facility] Hematology/BMT and Cellular Therapy Program [address] [place] [phone] Zonia Hoffman, ENGLISH COMPOSITION TEACHER 800 [facility] [address] [place] [phone] documented as of this encounter Visit Diagnoses Not on filedocumented in this encounter Additional Health Concerns Assessment Noted Time A fall risk assessment has been complete d for the patient 01/27/2025 3:25 PM EDT A Body Mass Index follow-up plan has been documented for the patient 05/28/2024 1:52 PM EST documented as of this encounter Care Teams Capsule Maker Relationship Specialty Start Date End Date Jevon Vazquez MD [address] [place] [address] #1 #1 [place] [address] PCP - General 03/23/22 documented as of this encounter
--- OUTSIDE RECORDS SUMMARY | 2025-02-20 09:04 | XMS_ITS | Clinical Summary ---
Author Organization [facility] Address [address] [place] [address] Care Team Providers Care Elevator Mechanic Apprentice Name Role Phone David Vazquez Primary Care [...] Discontinued 01/24/2023 Medical Devices Implanted Type Area Facilities Maintenance Supervisor Device Identifier Shelf Expiration Date Model / Serial / Lot Mis Ply Scr 6.5x50mm - [id number] Implanted:Qty : 1 on 01/30/2023 by Ivan Bartholomew MD at [facility] Screw N/A: Spine Lumbar [employer] [id number] / / Mis Ply Scr 6.5x45mm - [id number] Implanted:Qty : 3 on 01/30/2023 by Ivan Bartholomew MD at [facility] Screw N/A: Spine Lumbar [employer] [id number] / / Reline Mas Reduction Screw 7.5x45 - [id number] Implanted:Qty : 2 on 01/30/2023 by Ivan Bartholomew MD at [facility] Screw N/A: Spine Lumbar [employer] [id number] / / Grft Dbm Vesuvius Putty 5cc - [id number] Implanted:Qty : 1 on 01/30/2023 by Ivan Bartholomew MD at [facility] [employer] [id number] 04/20/2025 [id number] P / [id number] / Putty I-Factor 5.0cc - [id number] Implanted:Qty : 1 on 01/30/2023 by Ivan Bartholomew MD at [facility] N/A: Spine Lumbar [employer] 03/15/2025 [id number] / / [id number] Modulus Xlw [id number] 10 Degree - [id number] Implanted:Qty : 1 on 01/30/2023 by Ivan Bartholomew MD at [facility] N/A: Spine Lumbar [employer] [id number] / / [id number] Modulus Xlw 10m06p30sb - [id number] Implanted:Qty : 1 on 01/30/2023 by Ivan Bartholomew MD at [facility] N/A: Spine Lumbar [employer] 09/28/2027 [id number] / / [id number] Reln Lock Scr 5.5mm Opn Tulip - [id number] Implanted:Qty : 6 on 01/30/2023 by Ivan Bartholomew MD at [facility] N/A: Spine Lumbar [employer] [id number] / / Reln Mas Ti Petar 5.5x70mm - [id number] Implanted:Qty : 2 on 01/30/2023 by Ivan Bartholomew MD at [facility] N/A: Spine Lumbar [employer] [id number] / / Procedures Procedure Name Priority Date/Time [...] LAB Glucose 125(H) 71 - 99 mg/dL [facility] Comment:Reference range [...] mL/min/1.73m2. Calcium 10.3 8.5 - 10.5 mg/dL [facility] BUN/Creatinine Ratio 14 [facility] Serum 01/24/2023 2:32 PM EDT 01/24/2023 5:54 PM EDT Lexi SUAREZ CHEMISTRY ORDERABLES Final Resu lt [facility] [address] from Last 3 Months or Most Recently Relevant to Health Maintenance Insurance MEDICARE Member Subscriber Plan / Payer (Ef fective 2016-Present) Name:Ashly Briceño Member ID:[id number] Relation to Subscriber:Self Name:Ashly Briceño Subscriber ID:[id number] Payer ID:[id number] Group ID:Not on file Type:Medicare [place] [facility] [place] [address] [facility] [place] [address] [place] [address] [facility] Advance Directives For more information, please contact: [phone] * Full Code (Latest Code Status on File) Date Activated Date Inactivated Comments 01/30/2023 9:13 AM No automated chest compression devices for VAD Patients Care Teams Elevator Mechanic Apprentice Relationship Specialty Start Date End Date David Vazquez [address] [place] [address] PCP - General 01/24/23
--- OUTSIDE RECORDS SUMMARY | 2025-02-20 09:04 | XMS_ITS | Encounter Summary ---
Author Organization Healthcare Address [address] [place] [address] Care Team Providers Care Lens Blocker Name Role Phone Jevon Vazquez MD Primary Care Provider [phone] Encounter Details Date Type Department Care Team [...] Hematology/BMT and Cellular Therapy Program [address] [phone] 03/03/2025 1:30 PM EST Office Visit [facility] Hematology/BMT and Cellular Therapy Program [address] [phone] Zonia Hoffman, EPIC CADENCE ANALYST 800 [facility] [address] [place] [phone] documented as of this encounter Visit Diagnoses Not on filedocumented in this encounter Additional Health Concerns Assessment Noted Time A fall risk assessment has been complete d for the patient 09/30/2024 9:33 AM EDT A Body Mass Index follow-up plan has been documented for the patient 05/28/2024 1:52 PM EST documented as of this encounter Care Teams Lens Blocker Relationship Specialty Start Date End Date Jevon Vazquez MD [address] [place] [address] [address] [place] [address] PCP - General 03/23/22 documented as of this encounter
--- OUTSIDE RECORDS SUMMARY | 2025-02-20 09:04 | XMS_ITS | Encounter Summary ---
Author Organization Healthcare Address [address] [place] [address] Care Team Providers Care Gravity Prospecting Operator Name Role Phone Jevon Vazquez MD Primary Care Provider [phone] Encounter Details Date Type Department Care Team [...] Hematology/BMT and Cellular Therapy Program [address] [phone] 03/03/2025 1:30 PM EST Office Visit [facility] Hematology/BMT and Cellular Therapy Program [address] [phone] Zonia Hoffman, MERGERS AND ACQUISITIONS CONSULTANT 800 [facility] [address] [place] [phone] documented as of this encounter Visit Diagnoses Not on filedocumented in this encounter Additional Health Concerns Assessment Noted Time A fall risk assessment has been complete d for the patient 01/27/2025 3:25 PM EDT A Body Mass Index follow-up plan has been documented for the patient 05/28/2024 1:52 PM EST documented as of this encounter Care Teams Gravity Prospecting Operator Relationship Specialty Start Date End Date Jevon Vazuqez MD [address] [place] [address] [address] [place] [address] PCP - General 03/23/22 documented as of this encounter
--- OUTSIDE RECORDS SUMMARY | 2025-02-20 09:04 | XMS_ITS | Encounter Summary ---
Author Organization Healthcare Address [address] [place] [address] Care Team Providers Care Oil Well Service Unit Operator Name Role Phone Jevon Vazquez MD Primary Care Provider [phone] Encounter Details Date Type Department Care Team ([facility] Contact Info) Description 12/29/2024 Telephone [facility] Hematology/BMT and Cellular Therapy Program [address] [phone] Bibiana Sepulveda, NEWSPAPER DELIVERER 800 [facility] [address] [place] [phone] Social History Tobacco Use Types Packs/Day Years [...] wants to repeat BMBx. She verbalizes understanding. Concrete Block Plant Supervisor made aware. documented in this encounter Plan of Treatment Upcoming Encounters Date Type Department Care Team ([facility] Contact Info) Description 03/03/2025 1:00 PM EST Clinical Support [facility] Hematology/BMT and Cellular Therapy Program [address] [place] [address] 03/03/2025 1:30 PM EST Office Visit [facility] Hematology/BMT and Cellular Therapy Program [address] [place] [address] Zonia Hoffman, NEWSPAPER DELIVERER 800 [facility] [address] [place] [phone] documented as of this encounter Visit Diagnoses Not on filedocumented in this encounter Additional Health Concerns Assessment Noted Time A fall risk assessment has been complete d for the patient 09/30/2024 9:33 AM EDT A Body Mass Index follow-up plan has been documented for the patient 05/28/2024 1:52 PM EST documented as of this encounter Care Teams Oil Well Service Unit Operator Relationship Specialty Start Date End Date Jevon Vazquez MD [address] [place] [address] #1 [address]1 [place] [address] PCP - General 03/23/22 documented as of this encounter
[2025-02-20 09:16] LABS: Hematocrit 27.4 % (37.0-47.0); Hemoglobin 9.1 g/dL (12.2-16.2); Immature Granulocytes % 0 %; Mean Corpuscular HGB Conc 33.2 g/dL (31.8-35.4); Mean Corpuscular Hemoglobin 28.3 pg (27.0-31.2); Mean Corpuscular Volume 85.1 fl (81-99); Nucleated Red Blood Cells % 0 %; Red Blood Count 3.22 M/mm3 (4.20-5.40); Red Cell Distribution Width-SD 49.0 fL
[2025-02-20 09:19] LABS: Platelet Count 16 K/mm3 (142-424); White Blood Count 0.4 K/mm3 (4.8-10.8)
[2025-02-20] MEDS: SODIUM CHLORIDE 0.9% 10ML FLUSH SYRINGE 10 ML IV (09:25)
[2025-02-20 09:32] LABS: Alanine Aminotransferase 13 U/L (12-78); Albumin Level 3.4 g/dl (3.5-5.0); Albumin/Globulin Ratio 1.0 (1.1-1.8); Alkaline Phosphatase 51 U/L (38-126); Anion Gap 10.4 mEq/L (5-15); Aspartate Amino Transferase 29 U/L (14-36); Bilirubin,Total 0.9 mg/dl (0.2-1.3); Blood Urea Nitrogen 18 mg/dl (7-17); Calcium 9.1 mg/dl (8.4-10.2); Carbon Dioxide 22 mmol/L (22.0-30.0); Chloride 105 mmol/L (98-107); Creatinine,Serum 0.80 mg/dl (0.52-1.04); Estimated Glomerular Filt Rate 70 ml/min (>60); GFR (African American) 85 ML/MIN (>60); Globulin 3.3 g/dL (1.3-3.2); Glucose 210 mg/dl (74-100); Potassium 3.4 mmoL/L (3.5-5.1); Sodium 134 mmol/L (136-145); Total Protein,Serum 6.7 g/dl (6.3-8.2)
[2025-02-20 09:45] LABS: RBC Morphology Normal; Total Cells Counted 20
== END 2025-02-20 23:59 | disposition home or self-care (01) ==
PROVIDERS: PCP Family Medicine; Visit Provider Internal Medicine Medical Oncology
DX: C92.00 Acute myeloblastic leukemia, not having achieved remission (principal)
CPT/HCPCS: 36591; 80053; 85007; 85025; J1642

== ENCOUNTER 2025-02-23 08:59 | Outpatient (CLI) | payer MEDICARE, BC, SELFPAY ==
--- OUTSIDE RECORDS SUMMARY | 2025-01-12 08:30 | XMS_ITS | Encounter Summary ---
Author Organization Healthcare Address [address] [place] [address] Care Team Providers Care Cemetery Worker Name Role Phone Jevon Vazquez MD Primary Care Provider [phone] Reason for Visit * Reason Comments Labs Encounter Details Date Type Department Care Team ([facility] Contact Info) Description 01/12/2025 9:30 AM EDT Clinical Support [facility] Hematology/BMT and Cellular Therapy Program [address] [phone] Social History Tobacco Use Types Packs/Day Years [...] Upcoming Encounters Date Type Department Care Team ([facility] Contact Info) Description 03/03/2025 1:00 PM EST Clinical Support [facility] Hematology/BMT and Cellular Therapy Program [address] [phone] 03/03/2025 1:30 PM EST Office Visit [facility] Hematology/BMT and Cellular Therapy Program [address] [phone] Zonia Hoffman, CODING MACHINE OPERATOR 800 [facility] [address] [place] [phone] documented as of this encounter Visit Diagnoses Not on filedocumented in this encounter Additional Health Concerns Assessment Noted Time A fall risk assessment has been complete d for the patient 09/30/2024 9:33 AM EDT A Body Mass Index follow-up plan has been documented for the patient 05/28/2024 1:52 PM EST documented as of this encounter Care Teams Cemetery Worker Relationship Specialty Start Date End Date Jevon Vazquez MD [address] [place] [address] #1 #1 [place]SE[place] [phone] PCP - General 03/23/22 documented as of this encounter
--- OUTSIDE RECORDS SUMMARY | 2025-01-12 09:00 | XMS_ITS | Encounter Summary ---
Author Organization [facility] Address [address] [place] [address] Care Team Providers Care Real Estate Operations Manager Name Role Phone Jevon Vazquez MD Primary Care Provider [phone] Reason for Visit * Genetic Testing (Routine) - Authorized Specialty Diagnoses / Procedures Referred By Rebecca barron Referred To Contact Lab Diagnoses Myelodysplastic syndrome (CMS/HCC) Procedures Leukemia/Lymphoma - Immunophenotyping by Flow Cytometry New Mckinney MD [address] [facility] [address] [address] Phone: tel: fax: Referral ID Status Reason Start Date Expiration Date V isits Requested Visits Authorized [id number] Authorized 12/29/2024 06/30/2026 1 1 Encounter Details Date Type Department Care Team (Latest Contact Info) Description 01/12/2025 10:00 AM EDT Procedure Visit [facility] Hematology/BMT and Cellular Therapy Program [address] [phone] Rebecca Barrientos PA 800 [facility] [address] [address] Myelodysplastic syndrome (CMS/HCC); Acute myeloid [...] CC HEMATOLOGY/BMT AND CELLULAR THERAPY PROGRAM 800 [facility] [phone] / documented in this encounter Plan of Treatment Upcoming Encounters Date Type Department Care Team ([facility] st Contact Info) Description 03/03/2025 1:00 PM EST Clinical Support [facility] Hematology/BMT and Cellular Therapy Program [address] [phone] 03/03/2025 1:30 PM EST Office Visit [facility] Hematology/BMT and Cellular Therapy Program [address] [phone] Zonia Hoffman, RODDY 800 [facility] [address] [place] [phone] documented as of this encounter Procedures Procedure [...] Type Bone Marrow 01/20/2025 12:21 PM EDT [facility] Clinical Indication Myelodysplastic Syndrome 01/20/2025 12:21 PM EDT [facility] Specimen Adequacy Adequate 025 12:21 PM EDT [facility] Chromosome Analysis Result Giemsa-banded metaphase cells from unstimulated bone marrow cultures showed the following chromosome pattern: 43~44,X,-X,add(5)( q23),del(5)(q13q33 ),todd(7)ins?(7)(q1 1.2q11.2)t(7;12)(q 11.2;q13),-12,todd( 17)add(17)(p13.2)a dd(17)(q21)[16]/88 ,XX,idemx2[cp3]/46 ,XY[1] 01/20/2025 12:21 PM EDT [facility] Interpretation Abnormal female chromosome analysis. 95% of metaphase cells analyzed showed clonal abnormalities consistent with this patient's previous abnormal results (see [id number]). Clinical correlation is recommended. Note: Per [employer] (CAP) requirement an additional karyotype was performed and charged due to the presence of clonal abnormalities. # cells counted = 20 # cells analyzed = 20 # cells karyotyped = 3 Band resolution: 400-450 01/20/2025 12:21 PM EDT [facility] Pathologist Signature Reviewed by: Corey Tejada 01/20/2025 12:21 PM EDT [facility] Bone Marrow Non-blood Collection / Unknown 01/12/2025 9:55 AM EDT 01/12/2025 12:37 PM EDT us New Mckinney MD LAB CYTOGENETICS ORDERABLES F inal Result [facility] [address] [place] [address] * Leukemia/Lymphoma - Immunophenotyping by Flow Cytometry (01/12/2025 9:55 AM EDT) Clinical Indication MDS 01/12/2025 4:19 PM EDT [facility] Flow Cytometry Interpretation APPROXIMATELY 27% MYELOID BLASTS EXPRESSING CD34, CD117, VARIABLE CD33, PARTIAL CD56, VARIABLE HLA-DR, PARTIAL DIM CD7, CD38 AND DIM CD45, SEE COMMENT, BBONE MARROW ASPIRATE. 01/12/2025 4:19 PM EDT [facility] Comments Specimen viability is 89%. [...] surface light chains 01/12/2025 4:19 PM EDT [facility] Disclaimer This test was developed and its performance characteristics determined by the Immuno-Molecular Pathology Laboratory at the [facility]. It has not been cleared [...] clinical laboratory testing. 01/12/2025 4:19 PM EDT [facility] Pathologist Signature Reviewed by: Asad Hartman MD 01/12/2025 4:19 PM EDT [facility] MRD Indicated Test Not Indicated 4:19 PM EDT [facility] Bone Marrow Specimen from bone marrow obtained by aspiration / Unknown Non-blood Collection / Unknown 01/12/2025 9:55 AM EDT 01/12/2025 1:48 PM EDT us New Mckinney MD LAB FLOW CYTOMETRY ORDERABLES Final Result [facility] [address] [place] [address] * Bone marrow exam (01/12/2025 9:55 AM EDT) Case Report Bone Marrow Case: [id number] Authorizing Provider: New Mckinney MD Collected: 01/12/2025 0955 Ordering Location: [facility] Hematology/BMT and Received: 01/12/2025 1143 Cellular Therapy Program Pathologist: Asad Hartman MD Specimens: A) - Bone Marrow Aspirate, left B) - Bone Marrow Biopsy, left C) - Peripheral Blood for Bone Marrow 5:16 PM EDT [facility] Cytogenetics Report, Addendum Chromosome Analysis Result: Giemsa-banded metaphase cells from unstimulated bone marrow cultures showed the following chromosome pattern: 43~44,X,-X,add(5)( q23),del(5)(q13q33 ),todd(7)ins?(7)(q1 1.2q11.2)t(7;12)(q 11.2;q13),-12,todd( 17)add(17)(p13.2)a dd(17)(q21)[16]/88 ,XX,idemx2[cp3]/46 ,XY[1] Interpretation: Abnormal female chromosome analysis. 95% of metaphase cells analyzed showed clonal abnormalities consistent with this patient's previous abnormal results (see [facility]-[id number]). 5:16 PM EDT [facility] Addendum electronically signed by Asad Hartman MD on 01/23/2025 at 1716 EDT Final Diagnosis PERIPHERAL BLOOD AND BONE MARROW, LEFT POSTERIOR ILIAC CREST, (PERIPHERAL SMEAR, ASPIRATE SMEAR, AND CORE BIOPSY): - HYPOCELLULAR BONE MARROW WITH MARKEDLY DECREASED MEGAKARYOCYTES, DECREASED MATURING GRANULOPOIESIS, APPROXIMATELY 7-10% VARIABLY DISTRIBUTED BLASTS AND MORE THAN 50% RING SIDEROBLASTS, SEE COMMENT. 5:16 PM EDT [facility] at 0941 EDT Comment The discrepancy between blasts percentage by morphologic assessment and flow cytometric analysis is due to erythroid precursors that constitute majority of bone marrow cellularity and are removed by flow cytometry. 5:16 PM EDT [facility] Clinical Information MDS 01/14 5:16 PM EDT [facility] CBC and Differential PERIPHERAL [...] cells. Platelets are decreased. 5:16 PM EDT [facility] Bone Marrow Differential BONE MARROW DIFFERENTIAL: 300 cells Normal Patient Neutrophils 15-50 12 Metamyelocytes 4-19 0 Myelocytes 1-18 1 Promyelocytes 1-8 0 Blasts 0-2 7 Monocytes 0-5 7 Erythroid 16-38 61 Lymphocytes 3-24 7 Eosinophils 0-6 3 Basophils 0-2 0 Plasma cells 0-4 2 Other 5:16 PM T [facility] Aspirate Smear The bone marrow [...] 50% of erythroid precursors. 5:16 PM T [facility] Core Biopsy CELLULARITY: Variably cellular [...] Bony trabeculae are normal. 5:16 PM T [facility] Special and Immunohistochemical Stains Immunohistochemica [...] at the [facility], [address] [place] [address]. All tests reported here, except those addressing [...] negativity on decalcified specimens. 5:16 PM T [facility] Flow Cytometry Interpretation Flow cytometric analysis demonstrates approximately 27% population of myeloid blasts in this patient with history of myelodysplastic syndrome; expressing CD34, CD117, variable CD33, partial CD56, variable HLA-DR, partial dim CD7, CD38 and dim CD45 ([id number]). 5:16 PM T [facility] Gross Description B. LEFT A single specimen is received in formalin labeled bone marrow biopsy left posterior iliac crest and consists of 1 piece(s) of red/white tissue measuring 0.9 cm in length 0.2 cm in diameter. The specimen is submitted in to Histology for decalcification and routine processing. Cold Time: <1m 5:16 PM [facility] Note: A resident was involved in the service. I attest I examined the relevant preparations for the specimens and confirmed the diagnosis or interpretation. 5:16 PM T [facility] Bone Marrow Peripheral blood [...] PATHOLOGY ORDERABLES Edit ed Result - Final [facility] [address] [place] [address] * (ABNORMAL) CBC and Differential (01/12/2025 9:15 AM EDT) WBC Count 1.31(L) 3.70 - 10.30 10*3/uL LAB HEMATOLOGY METHOD 01/12/2025 9:58 AM EDT [facility] RBC Count 2.70(L) 3.90 - 5.20 10*6/uL LAB HEMATOLOGY METHOD 01/12/2025 9:58 AM EDT [facility] HGB 8.4(L) 11.2 - 15.7 g/dL LAB HEMATOLOGY METHOD 01/12/2025 9:58 AM EDT [facility] HCT 25.0(L) 34.0 - 45.0 % LAB HEMATOLOGY METHOD 01/12/2025 9:58 AM EDT [facility] Platelet Count 31(L) 155 - 369 10*3/uL LAB HEMATOLOGY METHOD 01/12/2025 9:58 AM EDT [facility] MCV 93 79 - 98 fL LAB HEMATOLOGY METHOD 01/12/2025 9:58 AM EDT [facility] MCH 31.1 26.0 - 32.0 pg LAB HEMATOLOGY METHOD 01/12/2025 9:58 AM EDT [facility] MCHC 33.6 30.7 - 35.5 g/dL LAB HEMATOLOGY METHOD 01/12/2025 9:58 AM EDT [facility] RDW 20.0(H) 11.5 - 14.5 % LAB HEMATOLOGY METHOD 01/12/2025 9:58 AM EDT [facility] MPV 8.8 8.8 - 12.5 fL LAB HEMATOLOGY METHOD 01/12/2025 9:58 AM EDT [facility] nRBC 3.1(H) <=0.0 per 100 WBCs LAB HEMATOLOGY METHOD 01/12/2025 9:58 AM EDT [facility] Differential Type Automated LAB HEMATOLOGY METHOD 01/12/2025 9:58 AM EDT [facility] Neutrophils % 19 % LAB HEMATOLOGY METHOD 01/12/2025 9:58 AM EDT [facility] Lymphocytes % 64 % LAB HEMATOLOGY METHOD 01/12/2025 9:58 AM EDT [facility] Monocytes % 15 % LAB HEMATOLOGY METHOD 01/12/2025 9:58 AM EDT [facility] Eosinophils % 2 % LAB HEMATOLOGY METHOD 01/12/2025 9:58 AM EDT [facility] Basophils % 0 % LAB HEMATOLOGY METHOD 01/12/2025 9:58 AM EDT [facility] Immature Granulocytes % 0 % LAB HEMATOLOGY METHOD 01/12/2025 9:58 AM EDT [facility] Neutrophils Absolute 0.25(LL) 1.60 - 6.10 10*3/uL LAB HEMATOLOGY METHOD 01/12/2025 9:58 AM EDT [facility] Lymphocytes Absolute 0.84(L) 1.20 - 3.90 10*3/uL LAB HEMATOLOGY METHOD 01/12/2025 9:58 AM EDT [facility] Monocytes Absolute 0.20(L) 0.30 - 0.90 10*3/uL LAB HEMATOLOGY METHOD 01/12/2025 9:58 AM EDT [facility] Eosinophils Absolute 0.02 0.00 - 0.50 10*3/uL LAB HEMATOLOGY METHOD 01/12/2025 9:58 AM EDT [facility] Basophils Absolute 0.00 0.00 - 0.10 10*3/uL LAB HEMATOLOGY METHOD 01/12/2025 9:58 AM EDT [facility] Immature Granulocytes Absolute 0.00 0.00 - 0.06 10*3/uL LAB HEMATOLOGY METHOD 01/12/2025 9:58 AM EDT [facility] Blood Blood sample taken from central line / Unknown (Port) Long-term Catheter / Unknown 01/12/2025 9:15 AM EDT 01/12/2025 9:31 AM EDT [facility] - 01/12/2025 9:58 AM EDT Therapeutic decision making should be based on absolute values, rather than percentages. us New Mckniney MD LAB BLOOD ORDERABLES Final Re sult [facility] [address] [place] [address] * (ABNORMAL) Comprehensive Metabolic Panel, Plasma (01/12/2025 9:15 AM EDT) Glucose, Plasma 121(H) 74 - 99 mg/dL 01/12/2025 10:02 AM EDT [facility] BUN, Plasma 24(H) 8 - 23 mg/dL 01/12/2025 10:02 AM EDT [facility] Creatinine, Plasma 1.19(H) 0.60 - 1.10 mg/dL 01/12/2025 10:02 AM EDT [facility] BUN/Creatinine Ratio 20 01/12/2025 10:02 AM EDT [facility] Sodium, Plasma 138 136 - 145 mmol/L 01/12/2025 10:02 AM EDT [facility] Potassium, Plasma 3.9 3.6 - 4.9 mmol/L 01/12/2025 10:02 AM EDT [facility] Chloride, Plasma 105 97 - 107 mmol/L 01/12/2025 10:02 AM EDT [facility] CO2, Plasma 21(L) 22 - 29 mmol/L 01/12/2025 10:02 AM EDT [facility] Anion Gap 12 6 - 16 mmol/L 01/12/2025 10:02 AM EDT [facility] Total Calcium, Plasma 9.7 8.9 - 10.2 mg/dL 01/12/2025 10:02 AM EDT [facility] Total Protein 6.1(L) 6.3 - 7.9 g/dL 01/12/2025 10:02 AM EDT [facility] Albumin, Plasma 3.9 3.5 - 5.2 g/dL 01/12/2025 10:02 AM EDT [facility] AST, Plasma 28 10 - 35 U/L 01/12/2025 10:02 AM EDT [facility] ALT, Plasma 12 10 - 35 U/L 01/12/2025 10:02 AM EDT [facility] Alkaline Phosphatase, Plasma 43(L) 46 - 142 U/L 01/12/2025 10:02 AM EDT [facility] Total Bilirubin, Plasma 0.5 0.2 - 1.1 mg/dL 01/12/2025 10:02 AM EDT [facility] eGFRcr 48.1 mL/min/1.7 3m*2 01/12/2025 10:02 AM EDT [facility] Comment:Reported eGFRcr in m L/min/1.73m2 is based the CKD-EPI 2020 equation that does not use a race coefficient. Blood Blood sample taken from central line / Unknown (Port) Long-term Catheter / Unknown 01/12/2025 9:15 AM EDT 01/12/2025 9:33 AM EDT us New Mckinney MD LAB BLOOD ORDERABLES Final Re sult [facility] [address] [place] [address] documented in this encounter Visit Diagnoses Diagnosis [...] documented as of this encounter Care Teams Real Estate Operations Manager Relationship Specialty Start Date End Date Jevon Vazquez MD [address] [place] [address] #1 #1 JOSEP [place] [address] PCP - General 03/23/22 documented as of this encounter
--- OUTSIDE RECORDS SUMMARY | 2025-01-27 14:00 | XMS_ITS | Encounter Summary ---
Author Organization Healthcare Address [address] [place] [address] Care Team Providers Care Freelance Photographer Name Role Phone Jevon Vazquez MD Primary Care Provider [phone] Reason for Visit * Reason Comments Labs Port Flush Encounter Details Date Type Department Care Team ([facility] Contact Info) Description 01/27/2025 3:00 PM EDT Clinical Support [facility] Hematology/BMT and Cellular Therapy Program [address] [place] [phone] Oscar Cortez, RN Social History Tobacco Use [...] Team ([facility] Contact Info) Description 03/03/2025 1:00 PM EST Clinical Support [facility] Hematology/BMT and Cellular Therapy Program [address] [phone] 03/03/2025 1:30 PM EST Office Visit [facility] Hematology/BMT and Cellular Therapy Program [address] [phone] Zonia Hoffman, SHAKE SAWYER 800 [facility] [address] [place] [phone] documented as of this encounter Visit Diagnoses Not on filedocumented in this encounter Additional Health Concerns Assessment Noted Time A fall risk assessment has been complete d for the patient 01/27/2025 3:25 PM EDT A Body Mass Index follow-up plan has been documented for the patient 05/28/2024 1:52 PM EST documented as of this encounter Care Teams Freelance Photographer Relationship Specialty Start Date End Date Jevon Vazquez MD [address] [place] [address] #1 #1 [place] [phone] PCP - General 03/23/22 documented as of this encounter
--- OUTSIDE RECORDS SUMMARY | 2025-01-27 14:30 | XMS_ITS | Encounter Summary ---
Author Organization [facility] Address [address] 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 [address] [place] [address] Phone: tel: Referral ID Status Reason Start Date Expiration Date Visits Requested Visits Authorized [id number] Authorized Specialty Services Required 5 07/29/2026 1 1 Encounter Details Date Type Department Care Team (Latest Contact Info) Description 01/27/2025 3:30 PM EDT Office Visit [facility] Hematology/BMT and Cellular Therapy Program [address] [place] [address] New Mckinney MD 800 [facility] [address] [place] [address] Encounter for antineoplastic immunotherapy (Primary [...] k/??L. 12/2023- seen by Dr. Manzano in [facility] for evaluation of anemia and [...] interphase cells examined show a deletion of [id number]. Next generation sequencing: Abnormal: TP53 (c.814G>A; p.Ium364Pdw) frequency 45%, DMNT3A (c.1522delC; p.Jir321BwkymNri450) frequency 48%, RUNX1 (c.336_338delGCC; p.Arr088sxv) frequency 35% Azacitidine + Venetoclax Cycle 1: 02/05/24 (Bhumika 70 mg PO D1-21, Aza 75 mg/m2 IV D1-7) 02/25/24 C1D21 Bone marrow biopsy: Hypercellular erythroid predominant maturing hematopoiesis, approx 2-3% blasts Flow: predominant T-Cells, no evidence of increased blasts, abnormal lymphoid populations. Karyotype: 44~45, X,-X,del(5)(q13q33), todd(7)ins?(7)(q11.2q11.2)t(7;12)(q11.2;q13), -12,todd(17)add(1 7)(p13.2)add(17)(q21),+mar[cp6]/44~45,X,-X,del(5)(q13q33),otdd(7)t(7;12)(q11.2;q1 3),-12,todd(17)add(17)(p13.2)add(17)(q21),+mar[cp4]/46,XX[10] Cycle 2: 03/22/24 (Bhumika 200 mg [...] Never Drug use: Never Interval History: Ms. sAhly Hernández presents to clinic 01/27/2025 with her [...] 5x/week monthly. - Will send referrals to [facility] and [place] for clinical trial evaluations. 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 Check CBC x 3 times/week at [facility] Labs reviewed today, Hgb 7.7 [...] Gerardo Pandey D.O. Hematology and Oncology Fellow [facility] Patient care and management discussed with [...] understand that therapeutic options are limited, and [id number]-[id number] discussions remain essential moving forward. We will start oral decitabine and refer to [place] and [facility] for clinical trial evaluations * Progress [...] Cycle 2: 03/22/24 Assessment/Plan: Rx sent to [facility]. Refills due 02/2025. Patient will return to [...] Support [facility] Hematology/BMT and Cellular Therapy Program [address] [place] [phone] 03/03/2025 1:30 PM EST Office Visit [facility] Hematology/BMT and Cellular Therapy Program [address] [phone] Zonia Hoffman, PUBLISHER ASSISTANT 800 [facility] [address] [place] [phone] Scheduled Referrals Name Type Priority Associated Diagnoses [...] - 99 mg/dL 01/27/2025 4:26 PM EDT [facility] BUN, Plasma 22 8 - 23 mg/dL 01/27/2025 4:26 PM EDT [facility] Creatinine, Plasma 1.10 0.60 - 1.10 mg/dL 01/27/2025 4:26 PM EDT [facility] BUN/Creatinine Ratio 20 01/27/2025 4:26 PM EDT [facility] Sodium, Plasma 138 136 - 145 mmol/L 01/27/2025 4:26 PM EDT [facility] Potassium, Plasma 4.6 3.6 - 4.9 mmol/L 01/27/2025 4:26 PM EDT [facility] Chloride, Plasma 106 97 - 107 mmol/L 01/27/2025 4:26 PM EDT [facility] CO2, Plasma 22 22 - 29 mmol/L 01/27/2025 4:26 PM EDT [facility] Anion Gap 10 6 - 16 mmol/L 01/27/2025 4:26 PM EDT [facility] Total Calcium, Plasma 9.6 8.9 - 10.2 mg/dL 01/27/2025 4:26 PM EDT [facility] Total Protein 6.2(L) 6.3 - 7.9 g/dL 01/27/2025 4:26 PM EDT [facility] Albumin, Plasma 3.9 3.5 - 5.2 g/dL 01/27/2025 4:26 PM EDT [facility] AST, Plasma 33 10 - 35 U/L 01/27/2025 4:26 PM EDT [facility] ALT, Plasma 11 10 - 35 U/L 01/27/2025 4:26 PM EDT [facility] Alkaline Phosphatase, Plasma 43(L) 46 - 142 U/L 01/27/2025 4:26 PM EDT [facility] Total Bilirubin, Plasma 0.5 0.2 - 1.1 mg/dL 01/27/2025 4:26 PM EDT [facility] eGFRcr 52.8 mL/min/1.7 3m*2 01/27/2025 4:26 PM EDT [facility] Comment:Reported eGFRcr in m L/min/1.73m2 is based the CKD-EPI 2020 equation that does not use a race coefficient. Blood Blood sample taken from central line / Unknown (Port) Long-term Catheter / Unknown 01/27/2025 3:00 PM EDT 01/27/2025 3:54 PM EDT us New Mckinney MD LAB BLOOD ORDERABLES Final Re sult [facility] [address] [place] [address] * (ABNORMAL) CBC and Differential (01/27/2025 3:00 PM EDT) WBC Count 1.22(L) 3.70 - 10.30 10*3/uL LAB HEMATOLOGY METHOD 01/27/2025 3:21 PM EDT [facility] RBC Count 2.90(L) 3.90 - 5.20 10*6/uL LAB HEMATOLOGY METHOD 01/27/2025 3:21 PM EDT [facility] HGB 8.9(L) 11.2 - 15.7 g/dL LAB HEMATOLOGY METHOD 01/27/2025 3:21 PM EDT [facility] HCT 26.3(L) 34.0 - 45.0 % LAB HEMATOLOGY METHOD 01/27/2025 3:21 PM EDT [facility] Platelet Count 23(L) 155 - 369 10*3/uL LAB HEMATOLOGY METHOD 01/27/2025 3:21 PM EDT [facility] MCV 91 79 - 98 fL LAB HEMATOLOGY METHOD 01/27/2025 3:21 PM EDT [facility] MCH 30.7 26.0 - 32.0 pg LAB HEMATOLOGY METHOD 01/27/2025 3:21 PM EDT [facility] MCHC 33.8 30.7 - 35.5 g/dL LAB HEMATOLOGY METHOD 01/27/2025 3:21 PM EDT [facility] RDW 17.7(H) 11.5 - 14.5 % LAB HEMATOLOGY METHOD 01/27/2025 3:21 PM EDT [facility] MPV 9.0 8.8 - 12.5 fL LAB HEMATOLOGY METHOD 01/27/2025 3:21 PM EDT [facility] nRBC 2.5(H) <=0.0 per 100 WBCs LAB HEMATOLOGY METHOD 01/27/2025 3:21 PM EDT [facility] Differential Type Automated LAB HEMATOLOGY METHOD 01/27/2025 3:21 PM EDT [facility] Neutrophils % 9 % LAB HEMATOLOGY METHOD 01/27/2025 3:21 PM EDT [facility] Lymphocytes % 78 % LAB HEMATOLOGY METHOD 01/27/2025 3:21 PM EDT [facility] Monocytes % 12 % LAB HEMATOLOGY METHOD 01/27/2025 3:21 PM EDT [facility] Eosinophils % 1 % LAB HEMATOLOGY METHOD 01/27/2025 3:21 PM EDT [facility] Basophils % 0 % LAB HEMATOLOGY METHOD 01/27/2025 3:21 PM EDT [facility] Immature Granulocytes % 0 % LAB HEMATOLOGY METHOD 01/27/2025 3:21 PM EDT [facility] Neutrophils Absolute 0.11(LL) 1.60 - 6.10 10*3/uL LAB HEMATOLOGY METHOD 01/27/2025 3:21 PM EDT [facility] Lymphocytes Absolute 0.95(L) 1.20 - 3.90 10*3/uL LAB HEMATOLOGY METHOD 01/27/2025 3:21 PM EDT [facility] Monocytes Absolute 0.15(L) 0.30 - 0.90 10*3/uL LAB HEMATOLOGY METHOD 01/27/2025 3:21 PM EDT [facility] Eosinophils Absolute 0.01 0.00 - 0.50 10*3/uL LAB HEMATOLOGY METHOD 01/27/2025 3:21 PM EDT [facility] Basophils Absolute 0.00 0.00 - 0.10 10*3/uL LAB HEMATOLOGY METHOD 01/27/2025 3:21 PM EDT [facility] Immature Granulocytes Absolute 0.00 0.00 - 0.06 10*3/uL LAB HEMATOLOGY METHOD 01/27/2025 3:21 PM EDT [facility] Blood Blood sample taken from central line / Unknown (Port) Long-term Catheter / Unknown 01/27/2025 3:00 PM EDT 01/27/2025 3:12 PM EDT Narrative [facility] - 01/27/2025 3:21 PM EDT Therapeutic decision making should be based on absolute values, rather than percentages. New Mckinney MD LAB BLOOD ORDERABLES Final Re sult [facility] [address] [place] [address] documented in this encounter Visit Diagnoses Diagnosis [...] documented as of this encounter Care Teams Brick Grader Relationship Specialty Start Date End Date Jevon Vazquez MD [address] [place] [address] #1 #1 [place] [id number] PCP - General 03/23/22 documented as of this encounter
[2025-02-23] VITALS (8 sets, daily range): BP systolic 107–129; BP diastolic 46–58; PULSE 81–85; RESP 17; TEMP 36.2–36.4; O2SAT 100
--- OUTSIDE RECORDS SUMMARY | 2025-02-23 09:12 | XMS_ITS | Encounter Summary ---
Author Organization [facility] Address [address] [place] [address] Care Team Providers Care Hot Air Furnace Installer And Repairer Name Role Phone Jevon Vazquez MD Primary Care Provider [phone] Reason for Visit * Reason Comments Med Refill Encounter Details Date Type Department Care Team ([facility] Contact Info) Description 02/02/2025 Refill [facility] Hematology/BMT and Cellular Therapy Program [address] [phone] Zonia Hoffman, EVENT COORDINATOR MARKETING AND SALES 800 [facility] [address] [place] [phone] Social History Tobacco Use Types Packs/Day Years [...] Upcoming Encounters Date Type Department Care Team ([facility] Contact Info) Description 03/03/2025 1:00 PM EST Clinical Support [facility] Hematology/BMT and Cellular Therapy Program [address] [phone] 03/03/2025 1:30 PM EST Office Visit [facility] Hematology/BMT and Cellular Therapy Program [address] [phone] Zonia Hoffman, EVENT COORDINATOR MARKETING AND SALES 800 [facility] [address] [place] [address] documented as of this encounter Visit Diagnoses [...] Date End Date Jevon Vazquez MD [address] [place] [address] [address]1 [address]1 [place] [address] PCP - General 03/23/22 documented as of this encounter
--- OUTSIDE RECORDS SUMMARY | 2025-02-23 09:12 | XMS_ITS | Encounter Summary ---
Author Organization [facility] Address [address] [place] [address] Care Team Providers Care Buckle Coverer Name Role Phone Jevon Vazquez MD Primary Care Provider Reason for Visit * Reason Comments Med Refill Encounter Details Date Type Department Care Team ([facility] Contact Info) Description 01/30/2024 Refill [facility] Hematology/BMT and Cellular Therapy Program [address] [phone] [place] MD 800 [facility] [address] [place] [phone] Social History Tobacco Use Types Packs/Day Years [...] Team ([facility] Contact Info) Description 03/03/2025 1:00 PM EST Clinical Support [facility] Hematology/BMT and Cellular Therapy Program [address] [phone] 03/03/2025 1:30 PM EST Office Visit [facility] Hematology/BMT and Cellular Therapy Program [address] [phone] Zonia Hoffman, PUBLIC EMPLOYMENT MEDIATOR 800 [facility] [address] [place] [address] documented as of this encounter Visit Diagnoses Not on filedocumented in this encounter Additional Health Concerns Assessment Noted Time A fall risk assessment has been complete d for the patient 01/11/2024 9:16 AM EDT A Body Mass Index follow-up plan has been documented for the patient 01/21/2024 6:16 AM EDT documented as of this encounter Care Teams Buckle Coverer Relationship Specialty Start Date End Date Jevon Vazquez MD [address] [place] [address] #1 [address]1 [place] [address] PCP - General 03/23/22 documented as of this encounter
--- OUTSIDE RECORDS SUMMARY | 2025-02-23 09:12 | XMS_ITS | Encounter Summary ---
Author Organization [facility] Address [address] [place] [address] Care Team Providers Care Business Excellence Manager Name Role Phone Jevon Vazquez MD Primary Care Provider Reason for Visit * Reason Comments Med Refill Encounter Details Date Type Department Care Team ([facility] Contact Info) Description 02/18/2025 Refill [facility] Hematology/BMT and Cellular Therapy Program [address] [phone] Zonia Hoffman, MARKETING OPERATIONS CONSULTANT 800 [facility] [address] [place] [phone] Immunosuppressed status (CMS/HCC); Acute myeloid leukemia not [...] [facility] Contact Info) Description 03/03/2025 1:00 PM EST Clinical Support [facility] Hematology/BMT and Cellular Therapy Program [address] [phone] 03/03/2025 1:30 PM EST Office Visit [facility] Hematology/BMT and Cellular Therapy Program [address] [place] [address] Zonia Hoffman, MARKETING OPERATIONS CONSULTANT 800 [facility] [address] [place] [address] documented as of this encounter Visit Diagnoses [...] as of this encounter Care Teams Business Excellence Manager Relationship Specialty Start Date End Date Jevon Vazquez MD [address] [place] [address] [address]1 [address]1 [place] [address] PCP - General 03/23/22 documented as of this encounter
--- OUTSIDE RECORDS SUMMARY | 2025-02-23 09:12 | XMS_ITS | Clinical Summary ---
Author Organization [facility] Address [address] 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) 02/16/2025 Orders Only [facility] Therapy [facility] [address] [place] [phone] 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, RN 02/02/2025 Refill [facility] Therapy [facility] [address] [place] [phone] Zonia Hoffman, TRUCK SHOP SUPERVISOR 01/28/2025 Telephone [facility] Therapy [facility] [address] [place] [phone] New Mckinney MD 01/27/2025 3:30 PM EDT Office Visit [facility] Cellular Therapy [facility] [address] [place] [phone] New Mckinney MD Encounter for antineoplastic immunotherapy (Primary Dx); 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); Immunosuppressed status (CMS/HCC) 01/27/2025 3:00 PM EDT Clinical Support [facility]ology[facility]BMT [facility] Cellular Therapy Program [address] [place] [phone] Oscar Cortez, RN 01/27/2025 [address]phone [facility] [address] [place] [phone] Emil Hardy, PharmD 01/27/2025 Telephone [facility] Cellular Therapy Program [address] [phone] Alyson Vivas, AKBAR 01/27/2025 Travel 01/20/2025 Travel 01/16/2025 Telephone [facility] Therapy [facility] [address] [phone] Daxa Elliott RN 01/12/2025 10:00 AM EDT Procedure Visit [facility]MT [facility] Cellular Therapy Program [address] [phone] Rebecca Barrientos PA Myelodysplastic syndrome (CMS/HCC); 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) 01/12/2025 9:30 AM EDT Clinical Support [facility]ology[facility]BMT [facility] Cellular Therapy Program [address] [phone] 01/12/2025 Travel 01/07/2025 Travel 01/07/2025 Telephone [facility] Therapy [facility] [address] [phone] Sabine Clemons MD 01/07/2025 Refill [facility] [address] [phone] Zonia Hoffman, TRUCK SHOP SUPERVISOR 01/05/2025 Travel 01/05/2025 Refill [facility] Therapy [facility] [address] [phone] Zonia Hoffman, TRUCK SHOP SUPERVISOR 12/29/2024 Orders Only [facility]MT [facility] Cellular Therapy [facility] [address] [phone] New Mckinney MD Myelodysplastic syndrome (CMS/HCC) (Primary Dx) 12/29/2024 Telephone [facility]BMT [facility] Cellular Therapy Program [address] [facility], [address] [place] [address] [place] [phone] Bibiana Sepulveda, TRUCK SHOP SUPERVISOR 12/28/2024 Travel 12/26/2024 Travel 12/25/2024 Travel 12/24/2024 Travel 12/23/2024 Travel 12/11/2024 Telephone [facility] [address] [facility], [address] [place] [phone] New Mckinney MD 12/10/2024 Travel 12/09/2024 Refill [facility] [address] [facility], [address] [place] [phone] Zonia Hoffman, TRUCK SHOP SUPERVISOR 11/27/2024 Telephone [facility] [address] [facility], [address] [place] [phone] Zonia Hoffman, TRUCK SHOP SUPERVISOR 11/26/2024 Travel 11/25/2024 Travel 11/24/2024 Travel 11/23/2024 Travel from Last 3 Months Immunizations Immunization [...] Hematology/BMT and Cellular Therapy Program [address] [phone] 03/03/2025 1:30 PM EST Office Visit [facility]BMT [facility] Cellular Therapy Program [address] [facility], [address] [place] [phone] Zonia Hoffman, TRUCK SHOP SUPERVISOR 800 [facility] [address] [place] [phone] Health Maintenance Due Date Last Done Comments [...] 05/16/2023 03/21/2023 UKY-Bone Density Scan 07/25/2024 07/25/2022 [id number] Vaccine ( season) 2024 02/18/2021, 07/10/2020, 06/12/2020 [...] this topic Medical Devices Implanted Type Area Inserting Machine Operator Device Identifier Shelf Expiration Date Model / Serial / Lot Port Clearvue Power 8fr - [id number] Implanted:Qty: 1 on 01/21/2024 by Ness Sargent MD at [facility] Peripherial Vascular-[id number] / / Procedures Procedure Name Priority Date/Time [...] LAB HEMATOLOGY METHOD 01/27/2025 3:21 PM EDT [facility] RBC Count 2.90(L) 3.90 - 5.20 10*6/uL LAB HEMATOLOGY METHOD 01/27/2025 3:21 PM EDT [facility] HGB 8.9(L) 11.2 - 15.7 g/dL LAB HEMATOLOGY METHOD 01/27/2025 3:21 PM EDT [facility] HCT 26.3(L) 34.0 - 45.0 % LAB HEMATOLOGY METHOD 01/27/2025 3:21 PM EDT [facility] Platelet Count 23(L) 155 - 369 10*3/uL LAB HEMATOLOGY METHOD 01/27/2025 3:21 PM EDT [facility] MCV 91 79 - 98 fL LAB HEMATOLOGY METHOD 01/27/2025 3:21 PM EDT [facility] MCH 30.7 26.0 - 32.0 pg LAB HEMATOLOGY METHOD 01/27/2025 3:21 PM EDT [facility] MCHC 33.8 30.7 - 35.5 g/dL LAB HEMATOLOGY METHOD 01/27/2025 3:21 PM EDT [facility] RDW 17.7(H) 11.5 - 14.5 % LAB HEMATOLOGY METHOD 01/27/2025 3:21 PM EDT [facility] MPV 9.0 8.8 - 12.5 fL LAB HEMATOLOGY METHOD 01/27/2025 3:21 PM EDT [facility] nRBC 2.5(H) <=0.0 per 100 WBCs LAB HEMATOLOGY METHOD 01/27/2025 3:21 PM EDT [facility] Differential Type Automated LAB HEMATOLOGY METHOD 01/27/2025 3:21 PM EDT [facility] Neutrophils % 9 % LAB HEMATOLOGY METHOD 01/27/2025 3:21 PM EDT [facility] Lymphocytes % 78 % LAB HEMATOLOGY METHOD 01/27/2025 3:21 PM EDT [facility] Monocytes % 12 % LAB HEMATOLOGY METHOD 01/27/2025 3:21 PM EDT [facility] Eosinophils % 1 % LAB HEMATOLOGY METHOD 01/27/2025 3:21 PM EDT [facility] Basophils % 0 % LAB HEMATOLOGY METHOD 01/27/2025 3:21 PM EDT [facility] Immature Granulocytes % 0 % LAB HEMATOLOGY METHOD 01/27/2025 3:21 PM EDT [facility] Neutrophils Absolute 0.11(LL) 1.60 - 6.10 10*3/uL LAB HEMATOLOGY METHOD 01/27/2025 3:21 PM EDT [facility] Lymphocytes Absolute 0.95(L) 1.20 - 3.90 10*3/uL LAB HEMATOLOGY METHOD 01/27/2025 3:21 PM EDT [facility] Monocytes Absolute 0.15(L) 0.30 - 0.90 10*3/uL LAB HEMATOLOGY METHOD 01/27/2025 3:21 PM EDT [facility] Eosinophils Absolute 0.01 0.00 - 0.50 10*3/uL LAB HEMATOLOGY METHOD 01/27/2025 3:21 PM EDT [facility] Basophils Absolute 0.00 0.00 - 0.10 10*3/uL LAB HEMATOLOGY METHOD 01/27/2025 3:21 PM EDT [facility] Immature Granulocytes Absolute 0.00 0.00 - 0.06 10*3/uL LAB HEMATOLOGY METHOD 01/27/2025 3:21 PM EDT [facility] Blood Blood sample taken from central line / Unknown (Port) Long-term Catheter / Unknown 01/27/2025 3:00 PM EDT 01/27/2025 3:12 PM EDT Narrative [facility] - 01/27/2025 3:21 PM EDT Therapeutic decision making should be based on absolute values, rather than percentages. us New Mckinney MD LAB BLOOD ORDERABLES Final Re sult [facility] [address] [place] [phone] * (ABNORMAL) Comprehensive Metabolic Panel, Plasma (01/27/2025 3:00 PM EDT) Only the most recent of2 resultswithin the time period is included. Glucose, Plasma 89 74 - 99 mg/dL 01/27/2025 4:26 PM EDT [facility] BUN, Plasma 22 8 - 23 mg/dL 01/27/2025 4:26 PM EDT [facility] Creatinine, Plasma 1.10 0.60 - 1.10 mg/dL 01/27/2025 4:26 PM EDT [facility] BUN/Creatinine Ratio 20 01/27/2025 4:26 PM EDT [facility] Sodium, Plasma 138 136 - 145 mmol/L 01/27/2025 4:26 PM EDT [facility] Potassium, Plasma 4.6 3.6 - 4.9 mmol/L 01/27/2025 4:26 PM EDT [facility] Chloride, Plasma 106 97 - 107 mmol/L 01/27/2025 4:26 PM EDT [facility] CO2, Plasma 22 22 - 29 mmol/L 01/27/2025 4:26 PM EDT [facility] Anion Gap 10 6 - 16 mmol/L 01/27/2025 4:26 PM EDT [facility] Total Calcium, Plasma 9.6 8.9 - 10.2 mg/dL 01/27/2025 4:26 PM EDT [facility] Total Protein 6.2(L) 6.3 - 7.9 g/dL 01/27/2025 4:26 PM EDT [facility] Albumin, Plasma 3.9 3.5 - 5.2 g/dL 01/27/2025 4:26 PM EDT [facility] AST, Plasma 33 10 - 35 U/L 01/27/2025 4:26 PM EDT [facility] ALT, Plasma 11 10 - 35 U/L 01/27/2025 4:26 PM EDT [facility] Alkaline Phosphatase, Plasma 43(L) 46 - 142 U/L 01/27/2025 4:26 PM EDT [facility] Total Bilirubin, Plasma 0.5 0.2 - 1.1 mg/dL 01/27/2025 4:26 PM EDT [facility] eGFRcr 52.8 mL/min/1.7 3m*2 01/27/2025 4:26 PM EDT [facility] [...] [facility] [address] [place] [address] * BIOPSY BONE MARROW (01/12/2025 10:00 AM EDT) Narrative Rebecca Barrientos PA - 01/12/2025 10:00 AM EDT Rebecca Barrientos PA 01/12/2025 12:20 PM Biopsy bone marrow Performed by: Rebecca Barrientos PA Authorized by: Rebecca Barrientos PA us Rebecca SUAREZ IN CLINIC/BEDSIDE ORDERABLE S Final Result * Chromosome Karyotype, Oncology (01/12/2025 9:55 AM EDT) Specimen Type Bone Marrow 01/20/2025 12:21 PM EDT [facility] Clinical Indication Myelodysplastic Syndrome 01/20/2025 12:21 PM EDT [facility] Specimen Adequacy Adequate 025 12:21 PM EDT [facility] Chromosome Analysis Result Giemsa-banded metaphase cells from unstimulated bone marrow cultures showed the following chromosome pattern: 43~44,X,-X,add(5)( q23),del(5)(q13q33 ),todd(7)ins?(7)(q1 1.2q11.2)t(7;12)(q 11.2;q13),-12,todd( 17)add(17)(p13.2)a dd(17)(q21)[16]/88 ,XX,idemx2[cp3]/46 ,XY[1] 01/20/2025 12:21 PM EDT [facility] Interpretation Abnormal female chromosome analysis. 95% of metaphase cells analyzed showed clonal abnormalities consistent with this patient's previous abnormal results (see [facility]-[id number]). Clinical correlation is recommended. Note: Per [employer] (CAP) requirement an additional karyotype was performed and charged due to the presence of clonal abnormalities. # cells counted = 20 # cells analyzed = 20 # cells karyotyped = 3 Band resolution: 400-450 01/20/2025 12:21 PM EDT [facility] Pathologist Signature Reviewed by: Corey Tejada 01/20/2025 12:21 PM EDT [facility] Bone Marrow Non-blood Collection / Unknown 01/12/2025 9:55 AM EDT 01/12/2025 12:37 PM EDT us New Mckinney MD LAB CYTOGENETICS ORDERABLES F inal Result [facility] [address] [place] [address] * Leukemia/Lymphoma - Immunophenotyping by Flow Cytometry (01/12/2025 9:55 AM EDT) Pathologist [facility] Clinical Indication MDS 01/12/2025 4:19 PM [facility] Flow Cytometry Interpretation APPROXIMATELY 27% MYELOID BLASTS EXPRESSING CD34, CD117, VARIABLE CD33, PARTIAL CD56, VARIABLE HLA-DR, PARTIAL DIM CD7, CD38 AND DIM CD45, SEE COMMENT, BBONE MARROW ASPIRATE. 01/12/2025 4:19 PM T [facility] Comments Specimen viability is 89%. Flow [...] lambda surface light chains 01/12/2025 4:19 PM [facility] Disclaimer This test was developed [...] complexity clinical laboratory testing. 01/12/2025 4:19 PM [facility] Pathologist Signature Reviewed by: Asad Hartman MD 01/12/2025 4:19 PM [facility] MRD Indicated Test Not Indicated 4:19 PM [facility] Bone Marrow Specimen from bone marrow obtained by aspiration / Unknown Non-blood Collection / Unknown 01/12/2025 9:55 AM EDT 01/12/2025 1:48 PM EDT us New Mckinney MD LAB FLOW CYTOMETRY ORDERABLES Final Result [facility] [address] [place] [address] * Bone marrow exam (01/12/2025 9:55 AM EDT) Case Report Bone Marrow Case: [id number] Authorizing Provider: New Mckinney MD Collected: 01/12/2025 0955 Ordering Location: [facility] Hematology/BMT and Received: 01/12/2025 1143 Cellular Therapy Program Pathologist: Asad Hartman MD Specimens: A) - Bone Marrow Aspirate, left B) - Bone Marrow Biopsy, left C) - Peripheral Blood for Bone Marrow 5:16 PM EDT [facility] Cytogenetics Report, Addendum Chromosome Analysis Result: Giemsa-banded metaphase cells from unstimulated bone marrow cultures showed the following chromosome pattern: 43~44,X,-X,add(5)( q23),del(5)(q13q33 ),todd(7)ins?(7)(q1 1.2q11.2)t(7;12)(q 11.2;q13),-12,todd( 17)add(17)(p13.2)a dd(17)(q21)[16]/88 ,XX,idemx2[cp3]/46 ,XY[1] Interpretation: Abnormal female chromosome analysis. 95% of metaphase cells analyzed showed clonal abnormalities consistent with this patient's previous abnormal results (see [facility]-[id number]). 5:16 PM EDT [facility] Addendum electronically signed by Asad Hartman MD on 01/23/2025 at 1716 EDT Final Diagnosis PERIPHERAL BLOOD AND BONE MARROW, LEFT POSTERIOR ILIAC CREST, (PERIPHERAL SMEAR, ASPIRATE SMEAR, AND CORE BIOPSY): - HYPOCELLULAR BONE MARROW WITH MARKEDLY DECREASED MEGAKARYOCYTES, DECREASED MATURING GRANULOPOIESIS, APPROXIMATELY 7-10% VARIABLY DISTRIBUTED BLASTS AND MORE THAN 50% RING SIDEROBLASTS, SEE COMMENT. 5:16 PM EDT [facility] at 0941 EDT Comment The discrepancy between blasts percentage by morphologic assessment and flow cytometric analysis is due to erythroid precursors that constitute majority of bone marrow cellularity and are removed by flow cytometry. 5:16 PM EDT [facility] Clinical Information MDS 01/14 5:16 PM EDT [facility] CBC and Differential PERIPHERAL BLOOD: 01/12/2025: [...] cells. Platelets are decreased. 5:16 PM EDT [facility] Bone Marrow Differential BONE MARROW DIFFERENTIAL: 300 cells Normal Patient Neutrophils 15-50 12 Metamyelocytes 4-19 0 Myelocytes 1-18 1 Promyelocytes 1-8 0 Blasts 0-2 7 Monocytes 0-5 7 Erythroid 16-38 61 Lymphocytes 3-24 7 Eosinophils 0-6 3 Basophils 0-2 0 Plasma cells 0-4 2 Other 5:16 PM EDT [facility] Aspirate Smear The bone marrow aspirate [...] 50% of erythroid precursors. 5:16 PM EDT [facility] Core Biopsy CELLULARITY: Variably cellular bone [...] Bony trabeculae are normal. 5:16 PM EDT [facility] Special and Immunohistochemical Stains Immunohistochemica l stains [...] at the [facility], [address] [place] [address]. All tests reported here, except those addressing [...] negativity on decalcified specimens. 5:16 PM EDT [facility] Flow Cytometry Interpretation Flow cytometric analysis demonstrates approximately 27% population of myeloid blasts in this patient with history of myelodysplastic syndrome; expressing CD34, CD117, variable CD33, partial CD56, variable HLA-DR, partial dim CD7, CD38 and dim CD45 ([id number]). 5:16 PM EDT [facility] Gross Description B. LEFT A single specimen is received in formalin labeled bone marrow biopsy left posterior iliac crest and consists of 1 piece(s) of red/white tissue measuring 0.9 cm in length 0.2 cm in diameter. The specimen is submitted in to Histology for decalcification and routine processing. Cold Time: <1m 5:16 PM EDT [facility] Note: A resident was involved in the service. I attest I examined the relevant preparations for the specimens and confirmed the diagnosis or interpretation. 5:16 PM EDT [facility] [...] [facility] [address] [place] [address] * Hepatitis C Antibody w/Reflex to HCV Quant PCR (01/07/2024 8:42 AM EDT) Hepatitis C Antibody Negative Negative 01/07/2024 10:13 AM EDT [facility] Blood Venous blood specimen / Unknown Venipuncture / Unknown 01/07/2024 8:42 AM EDT 01/07/2024 9:25 AM EDT New Mckinney MD LAB BLOOD ORDERABLES Final Re sult [facility] [address] [place] [address] from Last 3 Months or Most Recently Relevant to Health [place] [phone] ANTH Care Teams Marketing Mgr Relationship Specialty Start Date End Date Jevon Vazquez MD [address] [place] [address] #1 #1 [place] [phone] PCP - General 03/23/22
--- OUTSIDE RECORDS SUMMARY | 2025-02-23 09:12 | XMS_ITS | Encounter Summary ---
Author Organization [facility] Address [address] [place] [address] Care Team Providers Care State Superintendent Of [employer] Name Role Phone Jevon Vazquez MD Primary Care Provider [phone] Encounter Details Date Type Department Care Team ([facility] Contact Info) Description 01/07/2025 Telephone [facility] Hematology/BMT and Cellular Therapy Program [address] [phone] Sabine Clemons MD 800 [facility] [address] [place] [phone] Social History Tobacco Use Types Packs/Day Years [...] [facility] Contact Info) Description 03/03/2025 1:00 PM EST Clinical Support [facility]/BMT [facility] Cellular Therapy Program [address] [phone] 03/03/2025 1:30 PM EST Office Visit [facility]ology[facility]BMT [facility] Cellular Therapy Program [address] [phone] Zonia Hoffman, ASSEMBLER FOR PULLER OVER MACHINE 800 [facility] [address] [place] [phone] documented as of this encounter Visit Diagnoses Not on filedocumented in this encounter Additional Health Concerns Assessment Noted Time A fall risk assessment has been complete d for the patient 09/30/2024 9:33 AM EDT A Body Mass Index follow-up plan has been documented for the patient 05/28/2024 1:52 PM EST documented as of this encounter Care Teams State [employer] Relationship Specialty Start Date End Date Jevon Vazquez MD [address] [place] [address] #1 #1 [place] [phone] PCP - General 03/23/22 documented as of this encounter
--- OUTSIDE RECORDS SUMMARY | 2025-02-23 09:12 | XMS_ITS | Encounter Summary ---
Author Organization Healthcare Address [address] [place] [address] Care Team Providers Care Wood Heel Cementer Name Role Phone Jevon Vazquez MD Primary Care Provider [phone] Encounter Details Date Type Department Care Team (Late Contact Info) Description 01/16/2025 Telephone [facility]ematology/BMT and Cellular Therapy Program [address] [place] [address] [place] [phone] Daxa Elliott RN [facility] [...] [facility] Hematology/BMT and Cellular Therapy Program [address] [place] [phone] 03/03/2025 1:30 PM EST Office Visit [facility] Hematology/BMT and Cellular Therapy Program 750 [facility] [place] [phone] Zonia Hoffman, HISTOLOGY TECHNOLOGIST 800 [facility] [address] [place] [phone] documented as of this encounter Visit Diagnoses Not on filedocumented in this encounter Additional Health Concerns Assessment Noted Time A fall risk assessment has been complete d for the patient 09/30/2024 9:33 AM EDT A Body Mass Index follow-up plan has been documented for the patient 05/28/2024 1:52 PM EST documented as of this encounter Care Teams Wood Heel Cementer Relationship Specialty Start Date End Date Jevon Vazquez MD [address] [place] [address] #1 #1 [place] [phone] PCP - General 03/23/22 documented as of this encounter
--- OUTSIDE RECORDS SUMMARY | 2025-02-23 09:12 | XMS_ITS | Encounter Summary ---
Author Organization [facility] Address [address] [place] [address] Care Team Providers Care Gasateria Attendant Name Role Phone Jevon Vazquez MD Primary Care Provider [phone] Reason for Referral * Genetic Testing (Routine) - Closed Specialty Diagnoses / Procedures Referred By Rebecca Referred To Contact Lab Diagnoses Myelodysplastic syndrome (CMS/HCC) Procedures Cytogenetics Testing, Oncology New Mckinney MD [address] [address] Phone: tel: fax: Referral ID Status Reason Start Date Expiration Date Visits Re quested Visits Authorized [id number] Closed 12/29/2024 06/30/2026 1 1 * Genetic Testing (Routine) - Authorized Specialty Diagnoses / Procedures [facility] Referred To Contact Lab Diagnoses Myelodysplastic syndrome (CMS/HCC) Procedures Leukemia/Lymphoma - Immunophenotyping by Flow Cytometry New Mckinney MD 800 [facility] [address] [address] Phone: tel: fax: Referral ID Status Reason Start Date Expiration Date V isits Requested Visits Authorized [id number] Authorized 12/29/2024 06/30/2026 1 1 * Genetic Testing (Routine) - Authorized Specialty Diagnoses / Procedures [facility] Referred To Contact Lab Diagnoses Myelodysplastic syndrome (CMS/HCC) Procedures Bone marrow exam New Mckinney MD 800 [facility] [address] [place] [phone] Phone: tel: fax: Referral ID Status Reason Start Date Expiration Date V isits Requested Visits Authorized [id number] Authorized 12/29/2024 06/30/2026 1 1 Encounter Details Date Type Department Care Team ([facility] Contact Info) Description 12/29/2024 Orders Only [facility] Hematology/BMT and Cellular Therapy Program [address] [place] [address] New Mckinney MD 800 [facility] [address] [place] [phone] Myelodysplastic syndrome (CMS/HCC) (Primary Dx) Social [...] Hematology/BMT and Cellular Therapy Program [address] [place] [address] 03/03/2025 1:30 PM EST Office Visit [facility] Hematology/BMT and Cellular Therapy Program [address] [place] [address] Zonia Hoffman APRN 800 [facility] [address] [address] documented as of this encounter Results * Leukemia/Lymphoma - Immunophenotyping by Flow Cytometry (01/12/2025 9:55 AM EDT) Clinical Indication MDS 01/12/2025 4:19 PM EDT [facility] Flow Cytometry Interpretation APPROXIMATELY 27% MYELOID BLASTS EXPRESSING CD34, CD117, VARIABLE CD33, PARTIAL CD56, VARIABLE HLA-DR, PARTIAL DIM CD7, CD38 AND DIM CD45, SEE COMMENT, BBONE MARROW ASPIRATE. 01/12/2025 4:19 PM EDT [facility] Comments Specimen viability is 89%. [...] surface light chains 01/12/2025 4:19 PM EDT [facility] Disclaimer This test was developed [...] clinical laboratory testing. 01/12/2025 4:19 PM EDT [facility] Pathologist Signature Reviewed by: Asad Hartman MD 01/12/2025 4:19 PM EDT [facility] MRD Indicated Test Not Indicated 4:19 PM EDT [facility] Bone Marrow Specimen from bone marrow obtained by aspiration / Unknown Non-blood Collection / Unknown 01/12/2025 9:55 AM EDT 01/12/2025 1:48 PM EDT us New Mckinney MD LAB FLOW CYTOMETRY ORDERABLES Final Result [facility] [address] [place] [address] * Bone marrow exam (01/12/2025 9:55 AM EDT) Case Report Bone Marrow Case: [id number] Authorizing Provider: New Mckinney MD Collected: 01/12/2025 0955 Ordering Location: [facility] Hematology/BMT and Received: 01/12/2025 [facility] Pathologist: Asad Hartman MD Specimens: A) - Bone Marrow Aspirate, left B) - Bone Marrow Biopsy, left C) - Peripheral Blood for Bone Marrow 5:16 PM EDT [facility] Cytogenetics Report, Addendum Chromosome Analysis Result: Giemsa-banded metaphase cells from unstimulated bone marrow cultures showed the following chromosome pattern: 43~44,X,-X,add(5)( q23),del(5)(q13q33 ),todd(7)ins?(7)(q1 1.2q11.2)t(7;12)(q 11.2;q13),-12,todd( 17)add(17)(p13.2)a dd(17)(q21)[16]/88 ,XX,idemx2[cp3]/46 ,XY[1] Interpretation: Abnormal female chromosome analysis. 95% of metaphase cells analyzed showed clonal abnormalities consistent with this patient's previous abnormal results (see [id number]). 5:16 PM EDT [facility] Addendum electronically signed by Asad Hartman MD on 01/23/2025 at 1716 EDT Final Diagnosis PERIPHERAL BLOOD AND BONE MARROW, LEFT POSTERIOR ILIAC CREST, (PERIPHERAL SMEAR, ASPIRATE SMEAR, AND CORE BIOPSY): - HYPOCELLULAR BONE MARROW WITH MARKEDLY DECREASED MEGAKARYOCYTES, DECREASED MATURING GRANULOPOIESIS, APPROXIMATELY 7-10% VARIABLY DISTRIBUTED BLASTS AND MORE THAN 50% RING SIDEROBLASTS, SEE COMMENT. 5:16 PM EDT [facility] at 0941 EDT Comment The discrepancy between blasts percentage by morphologic assessment and flow cytometric analysis is due to erythroid precursors that constitute majority of bone marrow cellularity and are removed by flow cytometry. 5:16 PM EDT [facility] Clinical Information MDS 01/14 5:16 PM EDT [facility] CBC and Differential PERIPHERAL BLOOD: [...] cells. Platelets are decreased. 5:16 PM EDT [facility] Bone Marrow Differential BONE MARROW DIFFERENTIAL: 300 cells Normal Patient Neutrophils 15-50 12 Metamyelocytes 4-19 0 Myelocytes 1-18 1 Promyelocytes 1-8 0 Blasts 0-2 7 Monocytes 0-5 7 Erythroid 16-38 61 Lymphocytes 3-24 7 Eosinophils 0-6 3 Basophils 0-2 0 Plasma cells 0-4 2 Other 5:16 PM EDT [facility] Aspirate Smear The bone marrow [...] of erythroid precursors. 5 5:16 PM EDT [facility] Core Biopsy CELLULARITY: Variably cellular [...] trabeculae are normal. 5 5:16 PM EDT [facility] Special and Immunohistochemical Stains Immunohistochemica [...] the [facility], [address] [place] [address]. All tests reported here, except those addressing [...] negativity on decalcified specimens. 5:16 PM EDT [facility] Flow Cytometry Interpretation Flow cytometric analysis demonstrates approximately 27% population of myeloid blasts in this patient with history of myelodysplastic syndrome; expressing CD34, CD117, variable CD33, partial CD56, variable HLA-DR, partial dim CD7, CD38 and dim CD45 ([id number]). 5:16 PM EDT [facility] Gross Description B. LEFT A single specimen is received in formalin labeled bone marrow biopsy left posterior iliac crest and consists of 1 piece(s) of red/white tissue measuring 0.9 cm in length 0.2 cm in diameter. The specimen is submitted in to Histology for decalcification and routine processing. Cold Time: <1m 5:16 PM EDT [facility] Note: A resident was involved in the service. I attest I examined the relevant preparations for the specimens and confirmed the diagnosis or interpretation. 5:16 PM EDT [facility] Bone Marrow Peripheral blood specimen [...] PATHOLOGY ORDERABLES Edit ed Result - Final [facility] [address] [place] [address] documented in this encounter Visit Diagnoses Diagnosis Myelodysplastic syndrome (CMS/HCC)- Primary Myelodysplastic syndrome, unspecified documented in this encounter Additional Health Concerns Assessment Noted Time A fall risk assessment has been complete d for the patient 09/30/2024 9:33 AM EDT A Body Mass Index follow-up plan has been documented for the patient 05/28/2024 1:52 PM EST documented as of this encounter Care Teams Gasateria Attendant Relationship Specialty Start Date End Date Jevon Vazquez MD [address] [place] [address] #1 [address]1 [place] [address] PCP - General 03/23/22 documented as of this encounter
--- OUTSIDE RECORDS SUMMARY | 2025-02-23 09:12 | XMS_ITS | Clinical Summary ---
Author Organization [facility] Address [address] [place] [address] Care Team Providers Care Historical Society Director Name Role Phone David Vazquez Primary Care Provider [phone] Allergies No known active allergies Medications atorvastatin [...] Discontinued 01/24/2023 Medical Devices Implanted Type Area Popped Corn Oven Attendant Device Identifier Shelf Expiration Date Model / Serial / Lot Mis Ply Scr 6.5x50mm - [id number] Implanted:Qty : 1 on 01/30/2023 by Ivan Bartholomew MD at [facility] Screw N/A: Spine Lumbar [employer] [id number] / / Mis Ply Scr 6.5x45mm - [id number] Implanted:Qty : 3 on 01/30/2023 by Ivan Bartholomew MD at [facility] Screw N/A: Spine Lumbar [employer] [id number] / / Reline Mas Reduction Screw 7.5x45 - [id number] Implanted:Qty : 2 on 01/30/2023 by Ivan Bartholomew MD at [facility] Screw N/A: Spine Lumbar [employer] [id number] / / Grft Dbm Vesuvius Putty 5cc - [id number] Implanted:Qty : 1 on 01/30/2023 by Ivan Bartholomew MD at [facility] [employer] [id number] 04/20/2025 [id number] P / [id number] / Putty I-Factor 5.0cc - [id number] Implanted:Qty : 1 on 01/30/2023 by Ivan Bartholomew MD at [facility] N/A: Spine Lumbar [employer] 03/15/2025 [id number] / / [id number] Modulus Xlw [id number] 10 Degree - [id number] Implanted:Qty : 1 on 01/30/2023 by Ivan Bartholomew MD at [facility] N/A: Spine Lumbar [employer] [id number] / / [id number] Modulus Xlw [id number] - [id number] Implanted:Qty : 1 on 01/30/2023 by Ivan Bartholomew MD at [facility] N/A: Spine Lumbar [employer] 09/28/2027 [id number] / / [id number] Reln Lock Scr 5.5mm Opn Tulip - [id number] Implanted:Qty : 6 on 01/30/2023 by Ivan Bartholomew MD at [facility] N/A: Spine Lumbar [employer] [id number] / / Reln Mas Ti Petar 5.5x70mm - [id number] Implanted:Qty : 2 on 01/30/2023 by Ivan Bartholomew MD at [facility] N/A: Spine Lumbar [employer] [id number] / / Procedures Procedure Name Priority Date/Time [...] lt [facility] [address] from Last 3 Months or Most Recently Relevant to Health Maintenance Insurance MEDICARE Member Subscriber Plan / Payer (Ef fective 2016-Present) Name:Ashly Briceño Member ID:[id number] Relation to Subscriber:Self Name:Ashly Briceño Subscriber ID:[id number] Payer ID:[id number] Group ID:Not on file Type:Medicare Address: [facility] J15 PART A [facility] [place] [address] [place] [address] [facility] Advance Directives For more information, please contact: [phone] * Full Code (Latest Code Status on File) Date Activated Date Inactivated Comments 01/30/2023 9:13 AM No automated chest compression devices for VAD Patients Care Teams Historical Society Director Relationship Specialty Start Date End Date David Vazquez [address] [place] [address] PCP - General 01/24/23
--- OUTSIDE RECORDS SUMMARY | 2025-02-23 09:12 | XMS_ITS | Encounter Summary ---
Author Organization Healthcare Address [address] [place] [address] Care Team Providers Care Merchandising Representative Name Role Phone Jevon Vazquez MD Primary Care Provider [phone] Encounter Details Date Type Department Care Team ([facility] Contact Info) Description 02/16/2025 Orders Only [facility] Hematology/BMT and Cellular Therapy Program [address] [phone] 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, RN [facility] Social History Tobacco [...] ([facility] Contact Info) Description 03/03/2025 1:00 PM EST Clinical Support [facility] Hematology/BMT and Cellular Therapy Program [address] [phone] 03/03/2025 1:30 PM EST Office Visit [facility] Hematology/BMT and Cellular Therapy Program [address] [phone] Zonia Hoffman, WAITSTAFF 800 [facility] [address] [place] [phone] documented as of this encounter Visit Diagnoses Not on filedocumented in this encounter Additional Health Concerns Assessment Noted Time A fall risk assessment has been complete d for the patient 01/27/2025 3:25 PM EDT A Body Mass Index follow-up plan has been documented for the patient 05/28/2024 1:52 PM EST documented as of this encounter Care Teams Merchandising Representative Relationship Specialty Start Date End Date Jevon Vazquez MD [address] [place] [address] #1 #1 [place] [address] PCP - General 03/23/22 documented as of this encounter
--- OUTSIDE RECORDS SUMMARY | 2025-02-23 09:12 | XMS_ITS | Encounter Summary ---
Author Organization [facility] Address [address] [place] [address] Care Team Providers Care Electric Motor Rebuilder Name Role Phone Jevon Vazquez MD Primary Care Provider [phone] Reason for Visit * Reason Comments Med Refill Encounter Details Date Type Department Care Team ([facility] Contact Info) Description 01/05/2025 Refill [facility] Hematology/BMT and Cellular Therapy Program [address] [phone] Zonia Hoffman, LOCAL COMPANY TRUCK DRIVER 800 [facility] [address] [place] [phone] Social History Tobacco Use Types Packs/Day Years [...] Hematology/BMT and Cellular Therapy Program [address] [phone] 03/03/2025 1:30 PM EST Office Visit [facility] Hematology/BMT and Cellular Therapy Program [address] [phone] Zonia Hoffman, LOCAL COMPANY TRUCK DRIVER 800 [facility] [address] [place] [address] documented as of this encounter Visit Diagnoses Not on filedocumented in this encounter Additional Health Concerns Assessment Noted Time A fall risk assessment has been complete d for the patient 09/30/2024 9:33 AM EDT A Body Mass Index follow-up plan has been documented for the patient 05/28/2024 1:52 PM EST documented as of this encounter Care Teams Electric Motor Rebuilder Relationship Specialty Start Date End Date Jevon Vazquez MD [address] [place] [address] #1 [address]1 [place] [address] PCP - General 03/23/22 documented as of this encounter
--- OUTSIDE RECORDS SUMMARY | 2025-02-23 09:12 | XMS_ITS ---
Author Organization Healthcare Address [address] [place] [address] Care Team Providers Care Nurse Practitioner Name Role Phone Jevon Vazquez MD Primary Care Provider [phone] Active Problems Problem Noted Date Diagnosed Date [...]
--- OUTSIDE RECORDS SUMMARY | 2025-02-23 09:12 | XMS_ITS | Encounter Summary ---
Author Organization Healthcare Address [address] [place] [address] Care Team Providers Care Contract Accountant Name Role Phone Jevon Vazquez MD Primary Care Provider Encounter Details Date Type Department Care Team ([facility] Contact Info) Description 12/29/2024 Telephone [facility] Hematology/BMT and Cellular Therapy Program [address] [phone] Bibiana Sepulveda, SEWER DIGGER 800 [facility] [address] [place] [phone] Social History Tobacco Use Types Packs/Day Years [...] wants to repeat BMBx. She verbalizes understanding. Waste And Batting Waste Chopper made aware. documented in this encounter Plan of Treatment Upcoming Encounters Date Type Department Care Team ([facility] Contact Info) Description 03/03/2025 1:00 PM EST Clinical Support [facility] Hematology/BMT and Cellular Therapy Program [address] [place] [address] 03/03/2025 1:30 PM EST Office Visit PAV Hematology/BMT and Cellular Therapy Program [address] [place] [address] Zonia Hoffman, SEWER DIGGER 800 [facility] [address] [place] [phone] documented as of this encounter Visit Diagnoses Not on filedocumented in this encounter Additional Health Concerns Assessment Noted Time A fall risk assessment has been complete d for the patient 09/30/2024 9:33 AM EDT A Body Mass Index follow-up plan has been documented for the patient 05/28/2024 1:52 PM EST documented as of this encounter Care Teams Contract Accountant Relationship Specialty Start Date End Date Jevon Vazquez MD [address] [place] [address] #1 #1 [place] [address] PCP - General 03/23/22 documented as of this encounter
--- OUTSIDE RECORDS SUMMARY | 2025-02-23 09:12 | XMS_ITS | Encounter Summary ---
Author Organization Healthcare Address [address] [place] [address] Care Team Providers Care Farm Machinery Set Up Mechanic Name Role Phone Jevon Vazquez MD [...] Hematology/BMT and Cellular Therapy Program [address] [phone] 03/03/2025 1:30 PM EST Office Visit [facility] Hematology/BMT and Cellular Therapy Program [address] [phone] Zonia Hoffman, ASPNET DEVELOPER 800 [facility] [address] [place] [phone] documented as of this encounter Visit Diagnoses Not on filedocumented in this encounter Additional Health Concerns Assessment Noted Time A fall risk assessment has been complete d for the patient 09/30/2024 9:33 AM EDT A Body Mass Index follow-up plan has been documented for the patient 05/28/2024 1:52 PM EST documented as of this encounter Care Teams Farm Machinery Set Up Mechanic Relationship Specialty Start Date End Date Jevon Vazquez MD [address] [place] [address] #1 #1 [place] [address] PCP - General 03/23/22 documented as of this encounter
--- OUTSIDE RECORDS SUMMARY | 2025-02-23 09:12 | XMS_ITS | Encounter Summary ---
Author Organization Healthcare Address [address] [place] [address] Care Team Providers Care Optics Manufacturing Technician Name Role Phone Jevon Vazquez MD Primary Care Provider [phone] Encounter Details Date Type Department Care Team [...] Hematology/BMT and Cellular Therapy Program [address] [phone] 03/03/2025 1:30 PM EST Office Visit [facility] Hematology/BMT and Cellular Therapy Program [address] [phone] Zonia Hoffman, [place] OFFICER 800 [facility] [address] [place] [phone] documented as of this encounter Visit Diagnoses Not on filedocumented in this encounter Additional Health Concerns Assessment Noted Time A fall risk assessment has been complete d for the patient 09/30/2024 9:33 AM EDT A Body Mass Index follow-up plan has been documented for the patient 05/28/2024 1:52 PM EST documented as of this encounter Care Teams Optics Manufacturing Technician Relationship Specialty Start Date End Date Jevon Vazquez MD [address] [place] [address] #1 #1 [place] [address] PCP - General 03/23/22 documented as of this encounter
--- OUTSIDE RECORDS SUMMARY | 2025-02-23 09:12 | XMS_ITS | Encounter Summary ---
Author Organization [facility] Address [address] [place] [address] Care Team Providers Care Stummel Selector Name Role Phone Jevon Vazquez MD Primary Care Provider [phone] Reason for Visit * Reason Comments Med Refill Encounter Details Date Type Department Care Team ([facility] Contact Info) Description 01/07/2025 Refill [facility] Hematology/BMT and Cellular Therapy Program [address] [phone] Zonia Hoffman, RESIDENTIAL PROGRAM COORDINATOR 800 [facility] [address] [place] [phone] Social History Tobacco Use Types Packs/Day Years [...] Hematology/BMT and Cellular Therapy Program [address] [phone] 03/03/2025 1:30 PM EST Office Visit [facility] Hematology/BMT and Cellular Therapy Program [address] [phone] Zonia Hoffman, RESIDENTIAL PROGRAM COORDINATOR 800 [facility] [address] [place] [address] documented as of this encounter Visit Diagnoses Not on filedocumented in this encounter Additional Health Concerns Assessment Noted Time A fall risk assessment has been complete d for the patient 09/30/2024 9:33 AM EDT A Body Mass Index follow-up plan has been documented for the patient 05/28/2024 1:52 PM EST documented as of this encounter Care Teams Stummel Selector Relationship Specialty Start Date End Date Jevon Vazquez MD [address] [place] [address] #1 [address]1 [place] [address] PCP - General 03/23/22 documented as of this encounter
--- OUTSIDE RECORDS SUMMARY | 2025-02-23 09:12 | XMS_ITS | Encounter Summary ---
Author Organization [facility] Address [address] 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) New Mckinney MD 800 [facility] [address] [address] Phone: tel: fax: Referral ID Status Reason Start Date Expiration Date Visits Re quested Visits Authorized [id number] Closed 1 1 Reason for Visit * Reason Comments Med Refill Encounter Details Date Type Department Care Team ([facility] st Contact Info) Description 02/18/2025 Refill [facility] Hematology/BMT and Cellular Therapy Program [address] [place] [address] New Mckinney MD 800 [facility] [address] [phone] Acute myeloid leukemia not having [...] ([facility] st Contact Info) Description 03/03/2025 1:00 PM EST Clinical Support [facility] Hematology/BMT and Cellular Therapy Program 750 [facility], [address] [place] [phone] 03/03/2025 1:30 PM EST Office Visit PAV Hematology/BMT and Cellular Therapy Program 750 [facility], [address] [place] [phone] Zonia Hoffman, CABIN AGENT 800 [facility] [address] [place] [phone] documented as of this encounter Visit Diagnoses [...] as of this encounter Care Teams Ramp Lead Relationship Specialty Start Date End Date Jevon Vazquez MD [address] [place] [address] #1 [address] [place] [address] PCP - General 03/23/22 documented as of this encounter
--- OUTSIDE RECORDS SUMMARY | 2025-02-23 09:12 | XMS_ITS | Encounter Summary ---
Author Organization Healthcare Address [address] [place] [address] Care Team Providers Care Gluing Machine Operator Electronic Name Role Phone Jevon Vazquez MD Primary Care Provider [phone] Encounter Details Date Type Department Care Team [...] Hematology/BMT and Cellular Therapy Program [address] [phone] 03/03/2025 1:30 PM EST Office Visit [facility] Hematology/BMT and Cellular Therapy Program [address] [phone] Zonia Hoffman, CAKE FROSTER [facility] [address] [place] [phone] documented as of this encounter Visit Diagnoses Not on filedocumented in this encounter Additional Health Concerns Assessment Noted Time A fall risk assessment has been complete d for the patient 09/30/2024 9:33 AM EDT A Body Mass Index follow-up plan has been documented for the patient 05/28/2024 1:52 PM EST documented as of this encounter Care Teams Gluing Machine Operator Electronic Relationship Specialty Start Date End Date Jevon Vazquez MD [address] [place] [address] #1 #1 [place] [address] PCP - General 03/23/22 documented as of this encounter
--- OUTSIDE RECORDS SUMMARY | 2025-02-23 09:13 | XMS_ITS | Encounter Summary ---
Author Organization Healthcare Address [address] [place] [address] Care Team Providers Care Floor Sweeper Name Role Phone Jevon Vazquez MD Primary Care Provider [phone] Encounter Details Date Type Department Care Team ([facility] Contact Info) Description 01/28/2025 Telephone [facility] Hematology/BMT and Cellular Therapy Program [address] [phone] New Mckin[place] MD 800 [facility] [address] [place] [phone] Social History Tobacco Use Types Packs/Day Years [...] patient to inform patient of appointment at [place] on 02/04. Patient was informed that a UEIS message will be sent with information. documented in this encounter Plan of Treatment Upcoming Encounters Date Type Department Care Team ([facility] Contact Info) Description 03/03/2025 1:00 PM EST Clinical Support [facility] Hematology/BMT and Cellular Therapy Program [address] [place] [address] 03/03/2025 1:30 PM EST Office Visit PAV Hematology/BMT and Cellular Therapy Program [address] [place] [address] Zonia Hoffman, CERTIFIED PERFORMANCE TECHNOLOGIST 800 [facility] [address] [place] [phone] documented as of this encounter Visit Diagnoses Not on filedocumented in this encounter Additional Health Concerns Assessment Noted Time A fall risk assessment has been complete d for the patient 01/27/2025 3:25 PM EDT A Body Mass Index follow-up plan has been documented for the patient 05/28/2024 1:52 PM EST documented as of this encounter Care Teams Floor Sweeper Relationship Specialty Start Date End Date Jevon Vazquez MD [address] [place] [address] #1 #1 [place] [address] PCP - General 03/23/22 documented as of this encounter
--- OUTSIDE RECORDS SUMMARY | 2025-02-23 09:13 | XMS_ITS | Encounter Summary ---
Author Organization Healthcare Address [address] [place] [address] Care Team Providers Care Natural Resources Manager Name Role Phone Jevon aVzquez MD Primary Care Provider [phone] Encounter Details Date Type Department Care Team [...] Hematology/BMT and Cellular Therapy Program [address] [phone] 03/03/2025 1:30 PM EST Office Visit [facility] Hematology/BMT and Cellular Therapy Program [address] [address] Zonia Hoffman, CONFERENCE PLANNING MANAGER 800 [facility] [address] [place] [phone] documented as of this encounter Visit Diagnoses Not on filedocumented in this encounter Additional Health Concerns Assessment Noted Time A fall risk assessment has been complete d for the patient 01/27/2025 3:25 PM EDT A Body Mass Index follow-up plan has been documented for the patient 05/28/2024 1:52 PM EST documented as of this encounter Care Teams Natural Resources Manager Relationship Specialty Start Date End Date Jevon Vazquez MD [address] [place] [address] #1 #1 [place] [address] PCP - General 03/23/22 documented as of this encounter
--- OUTSIDE RECORDS SUMMARY | 2025-02-23 09:13 | XMS_ITS | Encounter Summary ---
Author Organization Healthcare Address [address] [place] [address] Care Team Providers Care Procurement Officer Name Role Phone Jevon Vazquez MD Primary Care Provider [phone] Encounter Details Date Type Department Care Team [...] Hematology/BMT and Cellular Therapy Program [address] [address] 03/03/2025 1:30 PM EST Office Visit [facility] CC Hematology/BMT and Cellular Therapy Program [address] [address] Zonia Hoffman, INFRASTRUCTURE ENGINEER 800 [facility] [address] [place] [phone] documented as of this encounter Visit Diagnoses Not on filedocumented in this encounter Additional Health Concerns Assessment Noted Time A fall risk assessment has been complete d for the patient 09/30/2024 9:33 AM EDT A Body Mass Index follow-up plan has been documented for the patient 05/28/2024 1:52 PM EST documented as of this encounter Care Teams Procurement Officer Relationship Specialty Start Date End Date Jevon Vazquez MD [address] [place] [address] #1 #1 [place] [address] PCP - General 03/23/22 documented as of this encounter
--- OUTSIDE RECORDS SUMMARY | 2025-02-23 09:13 | XMS_ITS | Encounter Summary ---
Author Organization Healthcare Address [address] [place] [address] Care Team Providers Care Notched Blade Loader Name Role Phone Jevon Vazquez MD Primary Care Provider [phone] Encounter Details Date Type Department Care Team [...] Hematology/BMT and Cellular Therapy Program [address] [address] 03/03/2025 1:30 PM EST Office Visit [facility] CC Hematology/BMT and Cellular Therapy Program [address] [address] Zonia Hoffman, AIRCRAFT STRUCTURAL DESIGN ENGINEER 800 [facility] [address] [place] [phone] documented as of this encounter Visit Diagnoses Not on filedocumented in this encounter Additional Health Concerns Assessment Noted Time A fall risk assessment has been complete d for the patient 09/30/2024 9:33 AM EDT A Body Mass Index follow-up plan has been documented for the patient 05/28/2024 1:52 PM EST documented as of this encounter Care Teams Notched Blade Loader Relationship Specialty Start Date End Date Jevon Vazquez MD [address] [place] [address] #1 #1 [place] [address] PCP - General 03/23/22 documented as of this encounter
--- OUTSIDE RECORDS SUMMARY | 2025-02-23 09:13 | XMS_ITS | Encounter Summary ---
Author Organization [facility] Address [address] [place] [address] Care Team Providers Care Assistant Corporation Counsel Name Role Phone Jevon Vazquez MD Primary Care Provider [phone] Encounter Details Date Type Department Care Team ([facility] Contact Info) Description 01/27/2025 Telephone [facility] CC Hematology/BMT and Cellular Therapy Program [address] [place] [address] Alyson Vivas RN Social History Tobacco Use [...] Hematology/BMT and Cellular Therapy Program [address] [place] [address] 03/03/2025 1:30 PM EST Office Visit [facility] CC Hematology/BMT and Cellular Therapy Program [address] [place] [phone] Zonia Hoffman, COSMETIC CHEMIST 800 [facility] [address] [place] [address] documented as of this encounter Visit Diagnoses Not on filedocumented in this encounter Additional Health Concerns Assessment Noted Time A fall risk assessment has been complete d for the patient 01/27/2025 3:25 PM EDT A Body Mass Index follow-up plan has been documented for the patient 05/28/2024 1:52 PM EST documented as of this encounter Care Teams Assistant Corporation Counsel Relationship Specialty Start Date End Date Jevon Vazquez MD [address] [place] [address] #1 [address]1 [place] [address] PCP - General 03/23/22 documented as of this encounter
--- OUTSIDE RECORDS SUMMARY | 2025-02-23 09:13 | XMS_ITS | Encounter Summary ---
Author Organization Healthcare Address [address] [place] [address] Care Team Providers Care Linen Keeper Name Role Phone Jevon Vazquez MD Primary Care Provider [phone] Encounter Details Date Type Department Care Team [...] Hematology/BMT and Cellular Therapy Program [address] [address] 03/03/2025 1:30 PM EST Office Visit [facility] CC Hematology/BMT and Cellular Therapy Program [address] [address] Zonia Hoffman, MENTAL HEALTH CONSULTANT 800 [facility] [address] [place] [phone] documented as of this encounter Visit Diagnoses Not on filedocumented in this encounter Additional Health Concerns Assessment Noted Time A fall risk assessment has been complete d for the patient 09/30/2024 9:33 AM EDT A Body Mass Index follow-up plan has been documented for the patient 05/28/2024 1:52 PM EST documented as of this encounter Care Teams Linen Keeper Relationship Specialty Start Date End Date Jevon Vazquez MD [address] [place] [address] #1 #1 [place] [address] PCP - General 03/23/22 documented as of this encounter
--- OUTSIDE RECORDS SUMMARY | 2025-02-23 09:13 | XMS_ITS | Encounter Summary ---
Author Organization Healthcare Address [address] [place] [address] Care Team Providers Care Curriculum Writer Name Role Phone Jevon Vazquez MD Primary Care Provider [phone] Encounter Details Date Type Department Care Team [...] Hematology/BMT and Cellular Therapy Program [address] [address] 03/03/2025 1:30 PM EST Office Visit [facility] CC Hematology/BMT and Cellular Therapy Program [address] [address] Zonia Hoffman, RANGE FEEDER 800 [facility] [address] [place] [phone] documented as of this encounter Visit Diagnoses Not on filedocumented in this encounter Additional Health Concerns Assessment Noted Time A fall risk assessment has been complete d for the patient 09/30/2024 9:33 AM EDT A Body Mass Index follow-up plan has been documented for the patient 05/28/2024 1:52 PM EST documented as of this encounter Care Teams Curriculum Writer Relationship Specialty Start Date End Date Jevon Vazquez MD [address] [place] [address] #1 #1 [place] [address] PCP - General 03/23/22 documented as of this encounter
--- OUTSIDE RECORDS SUMMARY | 2025-02-23 09:13 | XMS_ITS | Clinical Summary ---
Author Organization [facility] Address [address] [place] [address] Phone Care Team Providers Care Television Journalist Name Role Phone Jevon Vazquez MD Primary Care Provider [phone] Allergies Active Allergy Reactions Criticality Noted Date [...] L4-5 LAMINECTOMY; Surgeon: Ivan Bartholomew MD; Location: [facility] MAIN OR; Service: Spine Medical [...] 5.6 % 11/14/2022 2:57 PM EDT PREFERRED [employer], Loop Survey Est. Avg Glucose 148 mg/dL 11/14/2022 2:57 PM EDT [employer], Loop Survey Blood VENOUS BLOOD / Unknown Venipuncture / Unknown 11/11/2022 3:46 PM EDT 11/11/2022 3:55 PM EDT Narrative PREFERRED cVidya [facility] - 11/14/2022 2:57 PM [...] Maloney DO CHEMISTRY ORDERABLES Final R esult Synup 1 [facility] , [address] [place] [id number] * (ABNORMAL) BASIC METABOLIC PANEL (11/11/2022 3:46 PM EDT) Sodium 136 136 - 145 mmol/L 11/11/2022 4:11 PM EDT [facility] Potassium 3.8 3.5 - 5.0 mmol/L 11/11/2022 4:11 PM EDT [facility] Chloride 102 98 - 107 mmol/L 11/11/2022 4:11 PM EDT [facility] Total CO2 24 22 - 29 mmol/L 11/11/2022 4:11 PM EDT [facility] Anion Gap 10 7 - 16 mmol/L 11/11/2022 4:11 PM EDT [facility] Calcium 10.1 8.8 - 10.4 mg/dL 11/11/2022 4:11 PM EDT [facility] Glucose Lvl 147(H) 82 - 100 mg/dL 11/11/2022 4:11 PM EDT [facility] BUN 15 8 - 23 mg/dL 11/11/2022 4:11 PM EDT [facility] Creatinine 0.82 0.51 - 1.30 mg/dL 11/11/2022 4:11 PM EDT [facility] eGFR (CKD-EPIcr 2021) 76 >=60 mL/min/1.7 3 m2 11/11/2022 4:11 PM EDT [facility] Comment:Estimated GFR was ca lculated using the CKD-EPIcr (2020) equation refit without race. The equation is recommended by the National Kidney Foundation - [place] [employer] of Nephrology Task Force. Blood VENOUS BLOOD / Unknown Venipuncture / Unknown 11/11/2022 3:46 PM EDT 11/11/2022 3:54 PM EDT us Leona Hanna DO CHEMISTRY ORDERABLES Final Res ult [facility] [address] [place] [address] * DX BONE DENSITY AXIAL SKELETON (07/25/2022 9:14 AM EDT) Anatomical Region Laterality Modality Dexa Scan 07/25/2022 Narrative 07/25/2022 3:45 PM EDT Indication: The patient is a female age 65 or older who requires a bone density assessment. Study was performed on Spectropath 5. Bone Density: Region BMD T-score Z-score [...] Payer (Ef fective 2016-Present) Name:Ashly Hernández Member ID:[id number] Relation to Subscriber:Self Name:Ashly Hernández Subscriber ID:[id number] Payer ID:Not on file Group ID:Not on file Type:Not on file Address: [address] MEDICARE SUPPLEMENT MEDICARE [place] PART A & B [place]ICARE [place] PART A AND B Member Subscriber Plan / Payer (Ef fective 2016-Present) Name:Ashly Hernández Member ID:[id number] Relation to Subscriber:Self Name:Ashly Hernández Subscriber ID:[id number] Payer ID:Not on file Group ID:Not on file Type:Not on file Address: [address] MEDICARE SUPPLEMENT [employer] MEDICARE [place] PART A AND B [address] MEDICARE SUPPLEMENT Advance Directives For more information, please contact: [phone] * Full Code (Latest Code Status on File) Date Activated Date Inactivated Comments 11/14/2022 6:53 PM 11/16/2022 7:37 PM * Full Code Date Activated Date Inactivated Comments 11/12/2022 5:17 AM 11/14/2022 6:47 PM Care Teams Television Journalist Relationship Specialty Start Date End Date Jevon Vazquez MD [address] [place] [address] PCP - General Family Medicine 11/10/22
--- OUTSIDE RECORDS SUMMARY | 2025-02-23 09:13 | XMS_ITS | Encounter Summary ---
Author Organization [facility] Address [address] [place] [address] Care Team Providers Care Clinical Review Specialist Name Role Phone Jevon Vazquez MD Primary Care Provider [phone] Encounter Details Date Type Department Care Team (Late st Contact Info) Description 01/27/2025 Telephone [facility] [address] [place] [phone] Emil Hardy, PharmD Social History Tobacco Use [...] Valdes, PharmD - 01/28/2025 2:40 PM EDT [facility] Specialty Medication Initial Care Plan Ashly Hernández [...] Injectable, preservative free 03/21/2024 Moderna COVID-19 Vaccine (Mds Manager) 12+ years 06/12/2020, 07/10/2020, 02/18/2021 Selected [...] Patient reports education was provided by clinic [facility]. She denied further education at this time [...] Hematology/BMT and Cellular Therapy Program [address] [address] 03/03/2025 1:30 PM EST Office Visit PAV Hematology/BMT and Cellular Therapy Program [address] [address] Zonia Hoffman, RN ENDOSCOPY 800 [facility] [address] [place] [phone] documented as of this encounter Visit Diagnoses Not on filedocumented in this encounter Additional Health Concerns Assessment Noted Time A fall risk assessment has been complete d for the patient 01/27/2025 3:25 PM EDT A Body Mass Index follow-up plan has been documented for the patient 05/28/2024 1:52 PM EST documented as of this encounter Care Teams Clinical Review Specialist Relationship Specialty Start Date End Date Jevon Vazquez MD [address] [place] [address] #1 #1 [place] [address] PCP - General 03/23/22 documented as of this encounter
[2025-02-23 09:23] LABS: Hematocrit 24.9 % (37.0-47.0); Hemoglobin 8.4 g/dL (12.2-16.2); Immature Granulocytes % 0 %; Mean Corpuscular HGB Conc 33.7 g/dL (31.8-35.4); Mean Corpuscular Hemoglobin 28.8 pg (27.0-31.2); Mean Corpuscular Volume 85.3 fl (81-99); Nucleated Red Blood Cells % 0 %; Red Blood Count 2.92 M/mm3 (4.20-5.40); Red Cell Distribution Width-SD 50.5 fL
[2025-02-23 09:28] LABS: White Blood Count 0.7 K/mm3 (4.8-10.8)
[2025-02-23 09:29] LABS: Platelet Count 5 K/mm3 (142-424)
[2025-02-23 09:38] LABS: Alanine Aminotransferase 13 U/L (12-78); Albumin Level 3.3 g/dl (3.5-5.0); Albumin/Globulin Ratio 1.0 (1.1-1.8); Alkaline Phosphatase 52 U/L (38-126); Anion Gap 11.7 mEq/L (5-15); Aspartate Amino Transferase 25 U/L (14-36); Bilirubin,Total 0.8 mg/dl (0.2-1.3); Blood Urea Nitrogen 20 mg/dl (7-17); Calcium 9.4 mg/dl (8.4-10.2); Carbon Dioxide 21 mmol/L (22.0-30.0); Chloride 106 mmol/L (98-107); Creatinine,Serum 0.90 mg/dl (0.52-1.04); Estimated Glomerular Filt Rate 61 ml/min (>60); GFR (African American) 74 ML/MIN (>60); Globulin 3.3 g/dL (1.3-3.2); Glucose 197 mg/dl (74-100); Potassium 3.7 mmoL/L (3.5-5.1); Sodium 135 mmol/L (136-145); Total Protein,Serum 6.6 g/dl (6.3-8.2)
[2025-02-23 11:27] LABS: Total Cells Counted 50
[2025-02-23 11:28] LABS: RBC Morphology Normal
[2025-02-23] MEDS: 0.9 % SODIUM CHLORIDE 250 ML 25 ML IV (12:27)
[2025-02-23] MEDS: SODIUM CHLORIDE 0.9% 10ML FLUSH SYRINGE 10 ML IV (14:22)
== END 2025-02-23 23:59 | disposition home or self-care (01) ==
PROVIDERS: PCP Family Medicine; Visit Provider Internal Medicine Medical Oncology
DX: C92.00 Acute myeloblastic leukemia, not having achieved remission (principal)
CPT/HCPCS: 36430; 80053; 85007; 85025; 86850; 86900; 86901; J1642; J7050; P9034

== ENCOUNTER 2025-02-25 08:57 | Outpatient (CLI) | payer MEDICARE, BC, SELFPAY ==
--- OUTSIDE RECORDS SUMMARY | 2025-01-12 08:30 | XMS_ITS | Encounter Summary ---
Author Organization Healthcare Address [address] [place] [address] Care Team Providers Care Sales Executive Name Role Phone Jevon Vazquez MD Primary Care Provider [phone] Reason for Visit * Reason Comments Labs Encounter Details Date Type Department Care Team ([facility] Contact Info) Description 01/12/2025 9:30 AM EDT Clinical Support [facility] Hematology/BMT and Cellular Therapy Program [address] [phone] Social History Tobacco Use Types Packs/Day Years [...] Care Team ([facility] Contact Info) Description 03/03/2025 1:00 PM EST Clinical Support [facility] Hematology/BMT and Cellular Therapy Program [address] [phone] 03/03/2025 1:30 PM EST Office Visit [facility] Hematology/BMT and Cellular Therapy Program [address] [phone] Zonia Hoffman, DOCUMENT PROCESSING SPECIALIST 800 [facility] [address] [place] [phone] documented as of this encounter Visit Diagnoses Not on filedocumented in this encounter Additional Health Concerns Assessment Noted Time A fall risk assessment has been complete d for the patient 09/30/2024 9:33 AM EDT A Body Mass Index follow-up plan has been documented for the patient 05/28/2024 1:52 PM EST documented as of this encounter Care Teams Sales Executive Relationship Specialty Start Date End Date Jevon Vazquez MD [address] [place] [address] #1 #1 [place] [address] PCP - General 03/23/22 documented as of this encounter
--- OUTSIDE RECORDS SUMMARY | 2025-01-12 09:00 | XMS_ITS | Encounter Summary ---
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 Role Phone Jevon Vazquez MD Primary Care Provider [phone] Reason for Visit * Genetic Testing (Routine) - Authorized Specialty Diagnoses / Procedures Referred By Rebecca barron Referred To Contact Lab Diagnoses Myelodysplastic syndrome (CMS/HCC) Procedures Leukemia/Lymphoma - Immunophenotyping by Flow Cytometry New Mckinney MD [address] [facility] [address] [address] Phone: tel: fax: Referral ID Status Reason Start Date Expiration Date V isits Requested Visits Authorized [id number] Authorized 12/29/2024 06/30/2026 1 1 Encounter Details Date Type Department Care Team (Latest Contact Info) Description 01/12/2025 10:00 AM EDT Procedure Visit [facility] Hematology/BMT and Cellular Therapy Program [address] [phone] Rebecca Barrientos PA [address] [facility] [address] [address] Myelodysplastic syndrome (CMS/HCC); Acute myeloid [...] CC HEMATOLOGY/BMT AND CELLULAR THERAPY PROGRAM [address] [facility] [phone] / documented in this encounter Plan of Treatment Upcoming Encounters Date Type Department Care Team ([facility] st Contact Info) Description 03/03/2025 1:00 PM EST Clinical Support [facility] Hematology/BMT and Cellular Therapy Program [address] [phone] 03/03/2025 1:30 PM EST Office Visit [facility] Hematology/BMT and Cellular Therapy Program [address] [phone] Zonia Hoffman, RODDY 800 [facility] [address] [place] [phone] documented as of this encounter Procedures Procedure [...] Type Bone Marrow 01/20/2025 12:[address] [facility] Clinical Indication Myelodysplastic Syndrome 01/20/2025 12:[address] [facility] Specimen Adequacy Adequate 025 12:[address] [facility] Chromosome Analysis Result Giemsa-banded metaphase cells from unstimulated bone marrow cultures showed the following chromosome pattern: 43~44,X,-X,add(5)( q23),del(5)(q13q33 ),todd(7)ins?(7)(q1 1.2q11.2)t(7;12)(q 11.2;q13),-12,todd( 17)add(17)(p13.2)a dd(17)(q21)[16]/88 ,XX,idemx2[cp3]/46 ,XY[1] 01/20/2025 12:[address] [facility] Interpretation Abnormal female chromosome analysis. 95% of metaphase cells analyzed showed clonal abnormalities consistent with this patient's previous abnormal results (see [id number]). Clinical correlation is recommended. Note: Per [employer] ([employer]) requirement an additional karyotype was performed and charged due to the presence of clonal abnormalities. # cells counted = 20 # cells analyzed = 20 # cells karyotyped = 3 Band resolution: 400-450 01/20/2025 12:[address] [facility] Pathologist Signature Reviewed by: Corey Tejada 01/20/2025 12:[address] [facility] Bone Marrow Non-blood Collection / Unknown 01/12/2025 9:55 AM EDT 01/12/2025 12:37 PM EDT us New Mckinney MD LAB CYTOGENETICS ORDERABLES F inal Result [facility] [address] [place] [address] * Leukemia/Lymphoma - Immunophenotyping by Flow Cytometry (01/12/2025 9:55 AM EDT) Clinical Indication MDS 01/12/2025 4:[address] [facility] Flow Cytometry Interpretation APPROXIMATELY 27% MYELOID BLASTS EXPRESSING CD34, CD117, VARIABLE CD33, PARTIAL CD56, VARIABLE HLA-DR, PARTIAL DIM CD7, CD38 AND DIM CD45, SEE COMMENT, BBONE MARROW ASPIRATE. 01/12/2025 4:[address] [facility] Comments Specimen viability is 89%. [...] surface light chains 01/12/2025 4:19 PM EDT [facility] Disclaimer This test was developed and its performance characteristics determined by the Immuno-Molecular Pathology Laboratory at the [facility]. It has not been cleared [...] clinical laboratory testing. 01/12/2025 4:19 PM EDT [facility] Pathologist Signature Reviewed by: Asad Hartman MD 01/12/2025 4:[address] [facility] MRD Indicated Test Not Indicated 4:19 PM EDT [facility] Bone Marrow Specimen from bone marrow obtained by aspiration / Unknown Non-blood Collection / Unknown 01/12/2025 9:55 AM EDT 01/12/2025 1:48 PM EDT us New Mckinney MD LAB FLOW CYTOMETRY ORDERABLES Final Result [facility] [address] [place] [address] * Bone marrow exam (01/12/2025 9:55 AM EDT) Case Report Bone Marrow Case: [id number] Authorizing Provider: New Mckinney MD Collected: 01/12/2025 0955 Ordering Location: [facility] Hematology/BMT and Received: 01/12/2025 1143 Cellular Therapy Program Pathologist: Asad Hartman MD Specimens: A) - Bone Marrow Aspirate, left B) - Bone Marrow Biopsy, left C) - Peripheral Blood for Bone Marrow 5:[address] [facility] Cytogenetics Report, Addendum Chromosome Analysis Result: Giemsa-banded metaphase cells from unstimulated bone marrow cultures showed the following chromosome pattern: 43~44,X,-X,add(5)( q23),del(5)(q13q33 ),todd(7)ins?(7)(q1 1.2q11.2)t(7;12)(q 11.2;q13),-12,todd( 17)add(17)(p13.2)a dd(17)(q21)[16]/88 ,XX,idemx2[cp3]/46 ,XY[1] Interpretation: Abnormal female chromosome analysis. 95% of metaphase cells analyzed showed clonal abnormalities consistent with this patient's previous abnormal results (see [facility]-[id number]). 5:[address] [facility] Addendum electronically signed by Asad Hartman MD on 01/23/2025 at 1716 EDT Final Diagnosis PERIPHERAL BLOOD AND BONE MARROW, LEFT POSTERIOR ILIAC CREST, (PERIPHERAL SMEAR, ASPIRATE SMEAR, AND CORE BIOPSY): - HYPOCELLULAR BONE MARROW WITH MARKEDLY DECREASED MEGAKARYOCYTES, DECREASED MATURING GRANULOPOIESIS, APPROXIMATELY 7-10% VARIABLY DISTRIBUTED BLASTS AND MORE THAN 50% RING SIDEROBLASTS, SEE COMMENT. 5:[address] [facility] at 0941 EDT Comment The discrepancy between blasts percentage by morphologic assessment and flow cytometric analysis is due to erythroid precursors that constitute majority of bone marrow cellularity and are removed by flow cytometry. 5:[address] [facility] Clinical Information MDS 01/14 5:[address] [facility] CBC and Differential PERIPHERAL BLOOD: [...] cells. Platelets are decreased. 5:[address] [facility] Bone Marrow Differential BONE MARROW DIFFERENTIAL: 300 cells Normal Patient Neutrophils 15-50 12 Metamyelocytes 4-19 0 Myelocytes 1-18 1 Promyelocytes 1-8 0 Blasts 0-2 7 Monocytes 0-5 7 Erythroid 16-38 61 Lymphocytes 3-24 7 Eosinophils 0-6 3 Basophils 0-2 0 Plasma cells 0-4 2 Other 5:[address] [facility] Aspirate Smear The bone marrow [...] 50% of erythroid precursors. 5:[address] [facility] Core Biopsy CELLULARITY: Variably cellular [...] Bony trabeculae are normal. 5:[address] [facility] Special and Immunohistochemical Stains Immunohistochemica [...] performed at the [facility], [address] [place] [address]. All tests reported here, except those addressing [...] negativity on decalcified specimens. 5:[address] [facility] Flow Cytometry Interpretation Flow cytometric analysis demonstrates approximately 27% population of myeloid blasts in this patient with history of myelodysplastic syndrome; expressing CD34, CD117, variable CD33, partial CD56, variable HLA-DR, partial dim CD7, CD38 and dim CD45 ([id number]). 5:[address] [facility] Gross Description B. LEFT A single specimen is received in formalin labeled bone marrow biopsy left posterior iliac crest and consists of 1 piece(s) of red/white tissue measuring 0.9 cm in length 0.2 cm in diameter. The specimen is submitted in to Histology for decalcification and routine processing. Cold Time: <1m 5:16 PM [facility] Note: A resident was involved in the service. I attest I examined the relevant preparations for the specimens and confirmed the diagnosis or interpretation. 5:[address] [facility] Bone Marrow Peripheral blood specimen [...] ORDERABLES Edit ed Result - Final [facility] [address] [place] [address] * (ABNORMAL) CBC and Differential (01/12/2025 9:15 AM EDT) WBC Count 1.31(L) 3.70 - 10.30 10*3/uL LAB HEMATOLOGY METHOD 01/12/2025 9:58 AM EDT [facility] RBC Count 2.70(L) 3.90 - 5.20 10*6/uL LAB HEMATOLOGY METHOD 01/12/2025 9:58 AM EDT [facility] HGB 8.4(L) 11.2 - 15.7 g/dL LAB HEMATOLOGY METHOD 01/12/2025 9:58 AM EDT [facility] HCT 25.0(L) 34.0 - 45.0 % LAB HEMATOLOGY METHOD 01/12/2025 9:58 AM EDT [facility] Platelet Count 31(L) 155 - 369 10*3/uL LAB HEMATOLOGY METHOD 01/12/2025 9:58 AM EDT [facility] MCV 93 79 - 98 fL LAB HEMATOLOGY METHOD 01/12/2025 9:58 AM EDT [facility] MCH 31.1 26.0 - 32.0 pg LAB HEMATOLOGY METHOD 01/12/2025 9:58 AM EDT [facility] MCHC 33.6 30.7 - 35.5 g/dL LAB HEMATOLOGY METHOD 01/12/2025 9:58 AM EDT [facility] RDW 20.0(H) 11.5 - 14.5 % LAB HEMATOLOGY METHOD 01/12/2025 9:58 AM EDT [facility] MPV 8.8 8.8 - 12.5 fL LAB HEMATOLOGY METHOD 01/12/2025 9:58 AM EDT [facility] nRBC 3.1(H) <=0.0 per 100 WBCs LAB HEMATOLOGY METHOD 01/12/2025 9:58 AM EDT [facility] Differential Type Automated LAB HEMATOLOGY METHOD 01/12/2025 9:58 AM EDT [facility] Neutrophils % 19 % LAB HEMATOLOGY METHOD 01/12/2025 9:58 AM EDT [facility] Lymphocytes % 64 % LAB HEMATOLOGY METHOD 01/12/2025 9:58 AM EDT [facility] Monocytes % 15 % LAB HEMATOLOGY METHOD 01/12/2025 9:58 AM EDT [facility] Eosinophils % 2 % LAB HEMATOLOGY METHOD 01/12/2025 9:58 AM EDT [facility] Basophils % 0 % LAB HEMATOLOGY METHOD 01/12/2025 9:58 AM EDT [facility] Immature Granulocytes % 0 % LAB HEMATOLOGY METHOD 01/12/2025 9:58 AM EDT [facility] Neutrophils Absolute 0.25(LL) 1.60 - 6.10 10*3/uL LAB HEMATOLOGY METHOD 01/12/2025 9:58 AM EDT [facility] Lymphocytes Absolute 0.84(L) 1.20 - 3.90 10*3/uL LAB HEMATOLOGY METHOD 01/12/2025 9:58 AM EDT [facility] Monocytes Absolute 0.20(L) 0.30 - 0.90 10*3/uL LAB HEMATOLOGY METHOD 01/12/2025 9:58 AM EDT [facility] Eosinophils Absolute 0.02 0.00 - 0.50 10*3/uL LAB HEMATOLOGY METHOD 01/12/2025 9:58 AM EDT [facility] Basophils Absolute 0.00 0.00 - 0.10 10*3/uL LAB HEMATOLOGY METHOD 01/12/2025 9:58 AM EDT [facility] Immature Granulocytes Absolute 0.00 0.00 - 0.06 10*3/uL LAB HEMATOLOGY METHOD 01/12/2025 9:58 AM EDT [facility] Blood Blood sample taken from central line / Unknown (Port) Long-term Catheter / Unknown 01/12/2025 9:15 AM EDT 01/12/2025 9:31 AM EDT [facility] - 01/12/2025 9:58 AM EDT Therapeutic decision making should be based on absolute values, rather than percentages. us New Mckinney MD LAB BLOOD ORDERABLES Final Re sult [facility] [address] [place] [address] * (ABNORMAL) Comprehensive Metabolic Panel, Plasma (01/12/2025 9:15 AM EDT) Glucose, Plasma 121(H) 74 - 99 mg/dL 01/12/2025 10:[address] [facility] BUN, Plasma 24(H) 8 - 23 mg/dL 01/12/2025 10:[address] [facility] Creatinine, Plasma 1.19(H) 0.60 - 1.10 mg/dL 01/12/2025 10:[address] [facility] BUN/Creatinine Ratio 20 01/12/2025 10:[address] [facility] Sodium, Plasma 138 136 - 145 mmol/L 01/12/2025 10:[address] [facility] Potassium, Plasma 3.9 3.6 - 4.9 mmol/L 01/12/2025 10:[address] [facility] Chloride, Plasma 105 97 - 107 mmol/L 01/12/2025 10:[address] [facility] CO2, Plasma 21(L) 22 - 29 mmol/L 01/12/2025 10:[address] [facility] Anion Gap 12 6 - 16 mmol/L 01/12/2025 10:[address] [facility] Total Calcium, Plasma 9.7 8.9 - 10.2 mg/dL 01/12/2025 10:[address] [facility] Total Protein 6.1(L) 6.3 - 7.9 g/dL 01/12/2025 10:[address] [facility] Albumin, Plasma 3.9 3.5 - 5.2 g/dL 01/12/2025 10:[address] [facility] AST, Plasma 28 10 - 35 U/L 01/12/2025 10:[address] [facility] ALT, Plasma 12 10 - 35 U/L 01/12/2025 10:[address] [facility] Alkaline Phosphatase, Plasma 43(L) 46 - 142 U/L 01/12/2025 10:[address] [facility] Total Bilirubin, Plasma 0.5 0.2 - 1.1 mg/dL 01/12/2025 10:[address] [facility] eGFRcr 48.1 mL/min/1.7 3m*2 01/12/2025 10:[address] [facility] Comment:Reported eGFRcr in m L/min/1.73m2 is based the CKD-EPI 2020 equation that does not use a race coefficient. Blood Blood sample taken from central line / Unknown (Port) Long-term Catheter / Unknown 01/12/2025 9:15 AM EDT 01/12/2025 9:33 AM EDT us New Mckinney MD LAB BLOOD ORDERABLES Final Re sult [facility] [address] [place] [address] documented in this encounter Visit Diagnoses Diagnosis [...] Date End Date Jevon Vazquez MD [address] [place] [address] #1 #1 [place]SEP [place] [address] PCP - General 03/23/22 documented as of this encounter
--- OUTSIDE RECORDS SUMMARY | 2025-01-27 14:00 | XMS_ITS | Encounter Summary ---
Author Organization Healthcare Address [address] [place] [address] Care Team Providers Care Lines Tender Name Role Phone Jevon Vazquez MD Primary Care Provider [phone] Reason for Visit * Reason Comments Labs Port Flush Encounter Details Date Type Department Care Team ([facility] Contact Info) Description 01/27/2025 3:00 PM EDT Clinical Support [facility] Hematology/BMT and Cellular Therapy Program [address] [place] [phone] Oscar Cortez, RN Social History Tobacco Use [...] ([facility] Contact Info) Description 03/03/2025 1:00 PM EST Clinical Support [facility]ematology/BMT and Cellular Therapy Program [address] [phone] 03/03/2025 1:30 PM EST Office Visit [facility] Hematology/BMT and Cellular Therapy Program [address] [phone] Zonia Hoffman, CORK TIPPER 800 [facility] [address] [place] [phone] documented as of this encounter Visit Diagnoses Not on filedocumented in this encounter Additional Health Concerns Assessment Noted Time A fall risk assessment has been complete d for the patient 01/27/2025 3:25 PM EDT A Body Mass Index follow-up plan has been documented for the patient 05/28/2024 1:52 PM EST documented as of this encounter Care Teams Lines Tender Relationship Specialty Start Date End Date Jevon Vazquez MD [address] [place] [address] #1 #1 [place] [phone] PCP - General 03/23/22 documented as of this encounter
--- OUTSIDE RECORDS SUMMARY | 2025-01-27 14:30 | XMS_ITS | Encounter Summary ---
Author Organization [facility] Address [address] 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) New Mckinney MD [address] [address] Phone: tel: fax: [place] [address] Phone: tel: Referral ID Status Reason Start Date Expiration Date Visits Requested Visits Authorized [id number] Authorized Specialty Services Required 5 07/29/2026 1 1 * Consultation (Urgent) - Authorized Specialty Diagnoses / Procedures Referred By Contac t Referred To Contact Medical Oncology Diagnoses 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 [address] [place] [address] Encounter for antineoplastic immunotherapy (Primary [...] k/??L. 12/2023- seen by Dr[facility] Manzano in [facility] for evaluation of anemia and lymphocytosis. 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 Next generation sequencing: Abnormal: TP53 (c.814G>A; p.Gqt188Lni) frequency 45%, DMNT3A (c.1522delC; p.[id number]) frequency 48%, RUNX1 (c.336_338delGCC; p.Ouf702sqk) frequency 35% Azacitidine + Venetoclax Cycle 1: [...] 5x/week monthly. - Will send referrals to [facility] and [place] for clinical trial evaluations. 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 Check CBC x 3 times/week at [facility] Labs reviewed today, Hgb 7.7 , platelets [...] Gerardo Pandey D.O. Hematology and Oncology Fellow [facility] Patient care and management [...] understand that therapeutic options are limited, and [id number] discussions remain essential moving forward. We will start oral decitabine and refer to [place] and [facility] for clinical trial evaluations * Progress Notes [...] Cycle 2: 03/22/24 Assessment/Plan: Rx sent to [facility]. Refills due 02/2025. Patient will return to [...] ([facility] st Contact Info) Description 03/03/2025 1:00 PM EST Clinical Support [facility] Hematology/BMT and Cellular Therapy Program [address] [place] [phone] 03/03/2025 1:30 PM EST Office Visit [facility] Hematology/BMT and Cellular Therapy Program [address] [phone] Zonia Hoffman, IMPREGNATOR HELPER 800 [facility] [address] [place] [phone] Scheduled Referrals Name Type Priority Associated Diagnoses [...] - 99 mg/dL 01/27/2025 4:[address] [facility] BUN, Plasma 22 8 - 23 mg/dL 01/27/2025 4:[address] [facility] Creatinine, Plasma 1.10 0.60 - 1.10 mg/dL 01/27/2025 4:[address] [facility] BUN/Creatinine Ratio 20 01/27/2025 4:[address] [facility] Sodium, Plasma 138 136 - 145 mmol/L 01/27/2025 4:[address] [facility] Potassium, Plasma 4.6 3.6 - 4.9 mmol/L 01/27/2025 4:[address] [facility] Chloride, Plasma 106 97 - 107 mmol/L 01/27/2025 4:[address] [facility] CO2, Plasma 22 22 - 29 mmol/L 01/27/2025 4:[address] [facility] Anion Gap 10 6 - 16 mmol/L 01/27/2025 4:[address] [facility] Total Calcium, Plasma 9.6 8.9 - 10.2 mg/dL 01/27/2025 4:[address] [facility] Total Protein 6.2(L) 6.3 - 7.9 g/dL 01/27/2025 4:[address] [facility] Albumin, Plasma 3.9 3.5 - 5.2 g/dL 01/27/2025 4:[address] [facility] AST, Plasma 33 10 - 35 U/L 01/27/2025 4:[address] [facility] ALT, Plasma 11 10 - 35 U/L 01/27/2025 4:[address] [facility] Alkaline Phosphatase, Plasma 43(L) 46 - 142 U/L 01/27/2025 4:[address] [facility] Total Bilirubin, Plasma 0.5 0.2 - 1.1 mg/dL 01/27/2025 4:[address] [facility] eGFRcr 52.8 mL/min/1.7 3m*2 01/27/2025 4:[address] [facility] Comment:Reported eGFRcr in m L/min/1.73m2 is based the CKD-EPI 2020 equation that does not use a race coefficient. Blood Blood sample taken from central line / Unknown (Port) Long-term Catheter / Unknown 01/27/2025 3:00 PM EDT 01/27/2025 3:54 PM EDT us New Mckinney MD LAB BLOOD ORDERABLES Final Re sult [facility] [address] [place] [address] * (ABNORMAL) CBC and Differential (01/27/2025 3:00 PM EDT) WBC Count 1.22(L) 3.70 - 10.30 10*3/uL LAB HEMATOLOGY METHOD 01/27/2025 3:21 PM EDT [facility] RBC Count 2.90(L) 3.90 - 5.20 10*6/uL LAB HEMATOLOGY METHOD 01/27/2025 3:21 PM EDT [facility] HGB 8.9(L) 11.2 - 15.7 g/dL LAB HEMATOLOGY METHOD 01/27/2025 3:21 PM EDT [facility] HCT 26.3(L) 34.0 - 45.0 % LAB HEMATOLOGY METHOD 01/27/2025 3:21 PM EDT [facility] Platelet Count 23(L) 155 - 369 10*3/uL LAB HEMATOLOGY METHOD 01/27/2025 3:21 PM EDT [facility] MCV 91 79 - 98 fL LAB HEMATOLOGY METHOD 01/27/2025 3:21 PM EDT [facility] MCH 30.7 26.0 - 32.0 pg LAB HEMATOLOGY METHOD 01/27/2025 3:21 PM EDT [facility] MCHC 33.8 30.7 - 35.5 g/dL LAB HEMATOLOGY METHOD 01/27/2025 3:21 PM EDT [facility] RDW 17.7(H) 11.5 - 14.5 % LAB HEMATOLOGY METHOD 01/27/2025 3:21 PM EDT [facility] MPV 9.0 8.8 - 12.5 fL LAB HEMATOLOGY METHOD 01/27/2025 3:21 PM EDT [facility] nRBC 2.5(H) <=0.0 per 100 WBCs LAB HEMATOLOGY METHOD 01/27/2025 3:21 PM EDT [facility] Differential Type Automated LAB HEMATOLOGY METHOD 01/27/2025 3:21 PM EDT [facility] Neutrophils % 9 % LAB HEMATOLOGY METHOD 01/27/2025 3:21 PM EDT [facility] Lymphocytes % 78 % LAB HEMATOLOGY METHOD 01/27/2025 3:21 PM EDT [facility] Monocytes % 12 % LAB HEMATOLOGY METHOD 01/27/2025 3:21 PM EDT [facility] Eosinophils % 1 % LAB HEMATOLOGY METHOD 01/27/2025 3:21 PM EDT [facility] Basophils % 0 % LAB HEMATOLOGY METHOD 01/27/2025 3:21 PM EDT [facility] Immature Granulocytes % 0 % LAB HEMATOLOGY METHOD 01/27/2025 3:21 PM EDT [facility] Neutrophils Absolute 0.11(LL) 1.60 - 6.10 10*3/uL LAB HEMATOLOGY METHOD 01/27/2025 3:21 PM EDT [facility] Lymphocytes Absolute 0.95(L) 1.20 - 3.90 10*3/uL LAB HEMATOLOGY METHOD 01/27/2025 3:21 PM EDT [facility] Monocytes Absolute 0.15(L) 0.30 - 0.90 10*3/uL LAB HEMATOLOGY METHOD 01/27/2025 3:21 PM EDT [facility] Eosinophils Absolute 0.01 0.00 - 0.50 10*3/uL LAB HEMATOLOGY METHOD 01/27/2025 3:21 PM EDT [facility] Basophils Absolute 0.00 0.00 - 0.10 10*3/uL LAB HEMATOLOGY METHOD 01/27/2025 3:21 PM EDT [facility] Immature Granulocytes Absolute 0.00 0.00 - 0.06 10*3/uL LAB HEMATOLOGY METHOD 01/27/2025 3:21 PM EDT [facility] Blood Blood sample taken from central line / Unknown (Port) Long-term Catheter / Unknown 01/27/2025 3:00 PM EDT 01/27/2025 3:12 PM EDT Narrative [facility] - 01/27/2025 3:21 PM EDT Therapeutic decision making should be based on absolute values, rather than percentages. New Mckinney MD LAB BLOOD ORDERABLES Final Re sult [facility] [address] [place] [address] documented in this encounter Visit Diagnoses Diagnosis [...] documented as of this encounter Care Teams Lodging Manager Relationship Specialty Start Date End Date Jevon Vazquez MD [address] [place] [address] #1 #1 [place] [address] PCP - General 03/23/22 documented as of this encounter
[2025-02-25] VITALS (29 sets, daily range): BP systolic 110–138; BP diastolic 46–59; PULSE 73–88; RESP 18–20; TEMP 36.6–37.1; O2SAT 99–100; BMI 20.5
--- OUTSIDE RECORDS SUMMARY | 2025-02-25 09:03 | XMS_ITS ---
Author Organization Healthcare Address [address] [place] [address] Care Team Providers Care Airport Operations Manager Name Role Phone Jevon Vazquez MD Primary Care Provider [phone] Active Problems Problem Noted Date Diagnosed Date [...]
--- OUTSIDE RECORDS SUMMARY | 2025-02-25 09:03 | XMS_ITS | Encounter Summary ---
Author Organization [facility] Address [address] [place] [address] Care Team Providers Care Equipment Sales Specialist Name Role Phone Jevon Vazquez MD Primary Care Provider [phone] Reason for Visit * Reason Comments Med Refill Encounter Details Date Type Department Care Team ([facility] Contact Info) Description 02/02/2025 Refill [facility] CC Hematology/BMT and Cellular Therapy Program [address] [phone] Zonia Hoffman, FUEL CELL BINDER 800 [facility] [address] [place] [phone] Social History Tobacco Use Types Packs/Day Years [...] Team ([facility] Contact Info) Description 03/03/2025 1:00 PM EST Clinical Support [facility] CC Hematology/BMT and Cellular Therapy Program [address] [phone] 03/03/2025 1:30 PM EST Office Visit [facility] CC Hematology/BMT and Cellular Therapy Program [address] [phone] Zonia Hoffman, FUEL CELL BINDER 800 [facility] [address] [place] [address] documented as of this encounter Visit Diagnoses Not on filedocumented in this encounter Additional Health Concerns Assessment Noted Time A fall risk assessment has been complete d for the patient 01/27/2025 3:25 PM EDT A Body Mass Index follow-up plan has been documented for the patient 05/28/2024 1:52 PM EST documented as of this encounter Care Teams Equipment Sales Specialist Relationship Specialty Start Date End Date Jevon Vazquez MD [address] [place] [address] #1 [address]1 [place] [address] PCP - General 03/23/22 documented as of this encounter
--- OUTSIDE RECORDS SUMMARY | 2025-02-25 09:03 | XMS_ITS | Encounter Summary ---
Author Organization [facility] Address [address] [place] [address] Care Team Providers Care Art Handler Name Role Phone Jevon Vazquez MD Primary Care Provider [phone] Reason for Visit * Reason Comments Med Refill Encounter Details Date Type Department Care Team ([facility] Contact Info) Description 01/30/2024 Refill [facility] CC Hematology/BMT and Cellular Therapy Program [address] [phone] [place] MD [address] [facility] [address] [place] [phone] Social History Tobacco Use Types Packs/Day Years [...] [facility] Contact Info) Description 03/03/2025 1:00 PM EST Clinical Support [facility] CC Hematology/BMT and Cellular Therapy Program [address] [phone] 03/03/2025 1:30 PM EST Office Visit [facility] CC Hematology/BMT and Cellular Therapy Program [address] [phone] Zonia Hoffman, ASSEMBLER FINAL 800 [facility] [address] [place] [address] documented as of this encounter Visit Diagnoses Not on filedocumented in this encounter Additional Health Concerns Assessment Noted Time A fall risk assessment has been complete d for the patient 01/11/2024 9:16 AM EDT A Body Mass Index follow-up plan has been documented for the patient 01/21/2024 6:16 AM EDT documented as of this encounter Care Teams Art Handler Relationship Specialty Start Date End Date Jevon Vazquez MD [address] [place] [address] #1 #1 [place] [address] PCP - General 03/23/22 documented as of this encounter
--- OUTSIDE RECORDS SUMMARY | 2025-02-25 09:03 | XMS_ITS | Encounter Summary ---
Author Organization Healthcare Address [address] [place] [address] Care Team Providers Care Ore Storage Drier Name Role Phone Jevon Vazquez MD Primary Care Provider [phone] Encounter Details Date Type Department Care Team [...] Hematology/BMT and Cellular Therapy Program [address] [address] 03/03/2025 1:30 PM EST Office Visit [facility] CC Hematology/BMT and Cellular Therapy Program [address] [address] Zonia Hoffman, STUDIO PRODUCER 800 [facility] [address] [place] [phone] documented as of this encounter Visit Diagnoses Not on filedocumented in this encounter Additional Health Concerns Assessment Noted Time A fall risk assessment has been complete d for the patient 09/30/2024 9:33 AM EDT A Body Mass Index follow-up plan has been documented for the patient 05/28/2024 1:52 PM EST documented as of this encounter Care Teams Ore Storage Drier Relationship Specialty Start Date End Date Jevon Vazquez MD [address] [place] [address] #1 #1 [place] [address] PCP - General 03/23/22 documented as of this encounter
--- OUTSIDE RECORDS SUMMARY | 2025-02-25 09:03 | XMS_ITS | Encounter Summary ---
Author Organization Healthcare Address [address] [place] [address] Care Team Providers Care Spray Gun Striper Name Role Phone Jevon Vazquez MD Primary Care Provider [phone] Encounter Details Date Type Department Care Team (Late Contact Info) Description 01/16/2025 Telephone [facility] Hematology/BMT and Cellular Therapy Program [address] [place] [address] [place] [address] Daxa Elliott RN [facility] HEMATOLOGY PROGRAM [...] Hematology/BMT and Cellular Therapy Program [address] [place] [address] 03/03/2025 1:30 PM EST Office Visit PAV Hematology/BMT and Cellular Therapy Program 750 [facility] [phone] Zonia Hoffman, CORE SHAPER SIDES 800 [facility] [address] [place] [phone] documented as of this encounter Visit Diagnoses Not on filedocumented in this encounter Additional Health Concerns Assessment Noted Time A fall risk assessment has been complete d for the patient 09/30/2024 9:33 AM EDT A Body Mass Index follow-up plan has been documented for the patient 05/28/2024 1:52 PM EST documented as of this encounter Care Teams Spray Gun Striper Relationship Specialty Start Date End Date Jevon Vazquez MD [address] [place] [address] #1 #1 [place] [address] PCP - General 03/23/22 documented as of this encounter
--- OUTSIDE RECORDS SUMMARY | 2025-02-25 09:04 | XMS_ITS | Encounter Summary ---
Author Organization Healthcare Address [address] [place] [address] Care Team Providers Care Seasonal Package Handler Name Role Phone Jevon Vazquez MD Primary Care Provider [phone] Encounter Details Date Type Department Care Team ([facility] Contact Info) Description 02/16/2025 Orders Only [facility] Hematology/BMT and Cellular Therapy Program [address] [phone] 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, RN [facility] Social History [...] Team ([facility] Contact Info) Description 03/03/2025 1:00 PM EST Clinical Support [facility] Hematology/BMT and Cellular Therapy Program [address] [phone] 03/03/2025 1:30 PM EST Office Visit [facility] CC Hematology/BMT and Cellular Therapy Program [address] [phone] Zonia Hoffman, APPLICATION CHEMIST 800 [facility] [address] [place] [phone] documented as of this encounter Visit Diagnoses Not on filedocumented in this encounter Additional Health Concerns Assessment Noted Time A fall risk assessment has been complete d for the patient 01/27/2025 3:25 PM EDT A Body Mass Index follow-up plan has been documented for the patient 05/28/2024 1:52 PM EST documented as of this encounter Care Teams Seasonal Package Handler Relationship Specialty Start Date End Date Jevon Vazquez MD [address] [place] [address] #1 #1 [place] [address] PCP - General 03/23/22 documented as of this encounter
--- OUTSIDE RECORDS SUMMARY | 2025-02-25 09:04 | XMS_ITS | Encounter Summary ---
Author Organization [facility] Address [address] [place] [address] Care Team Providers Care Communications Consultant Name Role Phone Jevon Vazquez MD Primary Care Provider [phone] Reason for Visit * Reason Comments Med Refill Encounter Details Date Type Department Care Team ([facility] Contact Info) Description 01/07/2025 Refill [facility] Hematology/BMT and Cellular Therapy Program [address] [phone] Zonia Hoffman, DRAWING BOX TENDER 800 [facility] [address] [place] [phone] Social History Tobacco Use Types Packs/Day Years [...] Upcoming Encounters Date Type Department Care Team ([facility] Contact Info) Description 03/03/2025 1:00 PM EST Clinical Support [facility] Hematology/BMT and Cellular Therapy Program [address] [phone] 03/03/2025 1:30 PM EST Office Visit [facility] Hematology/BMT and Cellular Therapy Program [address] [phone] Zonia Hoffman, DRAWING BOX TENDER 800 [facility] [address] [place] [address] documented as of this encounter Visit Diagnoses Not on filedocumented in this encounter Additional Health Concerns Assessment Noted Time A fall risk assessment has been complete d for the patient 09/30/2024 9:33 AM EDT A Body Mass Index follow-up plan has been documented for the patient 05/28/2024 1:52 PM EST documented as of this encounter Care Teams Communications Consultant Relationship Specialty Start Date End Date Jevon Vazquez MD [address] [place] [address] [address] [place] [address] PCP - General 03/23/22 documented as of this encounter
--- OUTSIDE RECORDS SUMMARY | 2025-02-25 09:04 | XMS_ITS | Encounter Summary ---
Author Organization [facility] Address [address] [place] [address] Care Team Providers Care Nutrition Associate Name Role Phone Jevon Vazquez MD Primary Care Provider [phone] Reason for Visit * Reason Comments Med Refill Encounter Details Date Type Department Care Team ([facility] Contact Info) Description 02/18/2025 Refill [facility] Hematology/BMT and Cellular Therapy Program [address] [phone] Zonia Hoffman, BUSINESS DEVELOPMENT MANAGER 800 [facility] [address] [place] [phone] Immunosuppressed status (CMS/HCC); Acute myeloid leukemia not [...] Hematology/BMT and Cellular Therapy Program [address] [phone] 03/03/2025 1:30 PM EST Office Visit [facility] Hematology/BMT and Cellular Therapy Program [address] [place] [address] Zonia Hoffman, BUSINESS DEVELOPMENT MANAGER 800 [facility] [address] [place] [address] documented as of this encounter Visit Diagnoses [...] as of this encounter Care Teams Nutrition Associate Relationship Specialty Start Date End Date Jevon Vazquez MD [address] [place] [address] [address] [place] [address] PCP - General 03/23/22 documented as of this encounter
--- OUTSIDE RECORDS SUMMARY | 2025-02-25 09:04 | XMS_ITS | Encounter Summary ---
Author Organization [facility] Address [address] 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) New Mckinney MD 800 [facility] [address] [phone] Phone: tel: fax: Referral ID Status Reason Start Date Expiration Date Visits Re quested Visits Authorized [id number] Closed 1 1 Reason for Visit * Reason Comments Med Refill Encounter Details Date Type Department Care Team ([facility] st Contact Info) Description 02/18/2025 Refill [facility] Hematology/BMT and Cellular Therapy Program [address] [place] [address] New Mckinney MD 800 [facility] [address] [phone] Acute myeloid leukemia not having [...] [facility] st Contact Info) Description 03/03/2025 1:00 PM EST Clinical Support [facility] Hematology/BMT and Cellular Therapy Program 750 [facility], [address] [place] [phone] 03/03/2025 1:30 PM EST Office Visit [facility]AV Hematology/BMT and Cellular Therapy Program 750 [facility], [address] [place] [phone] Zonia Hoffman, HEALTH PROGRAM MANAGER 800 [facility] [address] [place] [phone] documented as of this encounter Visit Diagnoses [...] as of this encounter Care Teams Clinical Application Specialist Relationship Specialty Start Date End Date Jevon Vazquez MD [address] [place] [address] [address] [place] [address] PCP - General 03/23/22 documented as of this encounter
--- OUTSIDE RECORDS SUMMARY | 2025-02-25 09:04 | XMS_ITS | Clinical Summary ---
Author Organization [facility] Address [address] 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) 02/16/2025 Orders Only [facility] Hematology/BMT and Cellular Therapy Program [address] [place] [phone] 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, RN 02/02/2025 Refill [facility] Hematology/BMT and Cellular Therapy Program [address] [place] [phone] Zonia Hoffman, AURICULAR ACUPUNCTURIST 01/28/2025 Telephone [facility] Hematology/BMT and Cellular Therapy Program [address] [place] [phone] New Mckinney MD 01/27/2025 3:30 PM EDT Office Visit [facility] Hematology/BMT and Cellular Therapy Program [address] [place] [phone] New Mckinney MD Encounter for antineoplastic immunotherapy (Primary Dx); 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); Immunosuppressed status (CMS/HCC) 01/27/2025 3:00 PM EDT Clinical Support [facility] Hematology/BMT and Cellular Therapy Program [address] [place] [phone] Oscar Cortez, RN 01/27/2025 Telephone [facility] [address] [place] [phone] Emil Hardy, PharmD 01/27/2025 Telephone [facility] Hematology/BMT and Cellular Therapy Program [address] [phone] Alyson Vivas, AKBAR 01/27/2025 Travel 01/20/2025 Travel 01/16/2025 Telephone [facility] Hematology/BMT and Cellular Therapy Program [address] [phone] Daxa Elliott RN 01/12/2025 10:00 AM EDT Procedure Visit [facility] Hematology/BMT and Cellular Therapy Program [address] [phone] Rebecca Barrientos PA Myelodysplastic syndrome (CMS/HCC); 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) 01/12/2025 9:30 AM EDT Clinical Support [facility] Hematology/BMT and Cellular Therapy Program [address] [phone] 01/12/2025 Travel 01/07/2025 Travel 01/07/2025 Telephone [facility] Hematology/BMT and Cellular Therapy Program [address] [phone] Sabine Clemons MD 01/07/2025 Refill [facility] Hematology/BMT and Cellular Therapy Program [address] [phone] Zonia Hoffman, AURICULAR ACUPUNCTURIST 01/05/2025 Travel 01/05/2025 Refill [facility] Hematology/BMT and Cellular Therapy Program [address] [phone] Zonia Hoffman, AURICULAR ACUPUNCTURIST 12/29/2024 Orders Only [facility] Hematology/BMT and Cellular Therapy Program [address] [phone] New Mckinney MD Myelodysplastic syndrome (CMS/HCC) (Primary Dx) 12/29/2024 Telephone [facility] Hematology/BMT and Cellular Therapy Program 750 [facility], [address] [place] [address] [place] [phone] Bibiana Sepulveda, AURICULAR ACUPUNCTURIST 12/28/2024 Travel 12/26/2024 Travel 12/25/2024 Travel 12/24/2024 Travel 12/23/2024 Travel 12/11/2024 Telephone [facility] Hematology/BMT and Cellular Therapy Program 750 [facility], [address] [place] [phone] New Mckinney MD 12/10/2024 Travel 12/09/2024 Refill [facility] Hematology/BMT and Cellular Therapy Program 750 [facility], [address] [place] [phone] Zonia Hoffman, AURICULAR ACUPUNCTURIST 11/27/2024 Telephone [facility] Hematology/BMT and Cellular Therapy Program 750 [facility], [address] [place] [phone] Zonia Hoffman, AURICULAR ACUPUNCTURIST 11/26/2024 Travel 11/25/2024 Travel from Last 3 Months Immunizations Immunization [...] Hematology/BMT and Cellular Therapy Program [address] [phone] 03/03/2025 1:30 PM EST Office Visit [facility] Hematology/BMT and Cellular Therapy Program 750 [facility], [address] [place] [phone] Zonia Hoffman, AURICULAR ACUPUNCTURIST 800 [facility] [address] [place] [phone] Health Maintenance Due Date Last Done Comments [...] 05/16/2023 03/21/2023 UKY-Bone Density Scan 07/25/2024 07/25/2022 [id number] Vaccine ( season) 2024 02/18/2021, 07/10/2020, 06/12/2020 [...] this topic Medical Devices Implanted Type Area Cloth Spreader Screen Printing Device Identifier Shelf Expiration Date Model / Serial / Lot Port Clearvue Power 8fr - [id number] Implanted:Qty: 1 on 01/21/2024 by Ness Sargent MD at [facility] [employer]-[id number] / / Procedures Procedure Name Priority Date/Time [...] LAB HEMATOLOGY METHOD 01/27/2025 3:21 PM EDT [facility] RBC Count 2.90(L) 3.90 - 5.20 10*6/uL LAB HEMATOLOGY METHOD 01/27/2025 3:21 PM EDT [facility] HGB 8.9(L) 11.2 - 15.7 g/dL LAB HEMATOLOGY METHOD 01/27/2025 3:21 PM EDT [facility] HCT 26.3(L) 34.0 - 45.0 % LAB HEMATOLOGY METHOD 01/27/2025 3:21 PM EDT [facility] Platelet Count 23(L) 155 - 369 10*3/uL LAB HEMATOLOGY METHOD 01/27/2025 3:21 PM EDT [facility] MCV 91 79 - 98 fL LAB HEMATOLOGY METHOD 01/27/2025 3:21 PM EDT [facility] MCH 30.7 26.0 - 32.0 pg LAB HEMATOLOGY METHOD 01/27/2025 3:21 PM EDT [facility] MCHC 33.8 30.7 - 35.5 g/dL LAB HEMATOLOGY METHOD 01/27/2025 3:21 PM EDT [facility] RDW 17.7(H) 11.5 - 14.5 % LAB HEMATOLOGY METHOD 01/27/2025 3:21 PM EDT [facility] MPV 9.0 8.8 - 12.5 fL LAB HEMATOLOGY METHOD 01/27/2025 3:21 PM EDT [facility] nRBC 2.5(H) <=0.0 per 100 WBCs LAB HEMATOLOGY METHOD 01/27/2025 3:21 PM EDT [facility] Differential Type Automated LAB HEMATOLOGY METHOD 01/27/2025 3:21 PM EDT [facility] Neutrophils % 9 % LAB HEMATOLOGY METHOD 01/27/2025 3:21 PM EDT [facility] Lymphocytes % 78 % LAB HEMATOLOGY METHOD 01/27/2025 3:21 PM EDT [facility] Monocytes % 12 % LAB HEMATOLOGY METHOD 01/27/2025 3:21 PM EDT [facility] Eosinophils % 1 % LAB HEMATOLOGY METHOD 01/27/2025 3:21 PM EDT [facility] Basophils % 0 % LAB HEMATOLOGY METHOD 01/27/2025 3:21 PM EDT [facility] Immature Granulocytes % 0 % LAB HEMATOLOGY METHOD 01/27/2025 3:21 PM EDT [facility] Neutrophils Absolute 0.11(LL) 1.60 - 6.10 10*3/uL LAB HEMATOLOGY METHOD 01/27/2025 3:21 PM EDT [facility] Lymphocytes Absolute 0.95(L) 1.20 - 3.90 10*3/uL LAB HEMATOLOGY METHOD 01/27/2025 3:21 PM EDT [facility] Monocytes Absolute 0.15(L) 0.30 - 0.90 10*3/uL LAB HEMATOLOGY METHOD 01/27/2025 3:21 PM EDT [facility] Eosinophils Absolute 0.01 0.00 - 0.50 10*3/uL LAB HEMATOLOGY METHOD 01/27/2025 3:21 PM EDT [facility] Basophils Absolute 0.00 0.00 - 0.10 10*3/uL LAB HEMATOLOGY METHOD 01/27/2025 3:21 PM EDT [facility] Immature Granulocytes Absolute 0.00 0.00 - 0.06 10*3/uL LAB HEMATOLOGY METHOD 01/27/2025 3:21 PM EDT [facility] Blood Blood sample taken from central line / Unknown (Port) Long-term Catheter / Unknown 01/27/2025 3:00 PM EDT 01/27/2025 3:12 PM EDT [facility]ALTHCARE LAB - 01/27/2025 3:21 PM EDT Therapeutic decision making should be based on absolute values, rather than percentages. us New Mckinney MD LAB BLOOD ORDERABLES Final Re sult [facility] [address] [place] [address] * (ABNORMAL) Comprehensive Metabolic Panel, Plasma (01/27/2025 3:00 PM EDT) Only the most recent of2 resultswithin the time period is included. Glucose, Plasma 89 74 - 99 mg/dL 01/27/2025 4:26 PM EDT [facility] BUN, Plasma 22 8 - 23 mg/dL 01/27/2025 4:26 PM EDT [facility] Creatinine, Plasma 1.10 0.60 - 1.10 mg/dL 01/27/2025 4:26 PM EDT [facility] BUN/Creatinine Ratio 20 01/27/2025 4:26 PM EDT [facility] Sodium, Plasma 138 136 - 145 mmol/L 01/27/2025 4:26 PM EDT [facility] Potassium, Plasma 4.6 3.6 - 4.9 mmol/L 01/27/2025 4:26 PM EDT [facility] Chloride, Plasma 106 97 - 107 mmol/L 01/27/2025 4:26 PM EDT [facility] CO2, Plasma 22 22 - 29 mmol/L 01/27/2025 4:26 PM EDT [facility] Anion Gap 10 6 - 16 mmol/L 01/27/2025 4:26 PM EDT [facility] Total Calcium, Plasma 9.6 8.9 - 10.2 mg/dL 01/27/2025 4:26 PM EDT [facility] Total Protein 6.2(L) 6.3 - 7.9 g/dL 01/27/2025 4:26 PM EDT [facility] Albumin, Plasma 3.9 3.5 - 5.2 g/dL 01/27/2025 4:26 PM EDT [facility] AST, Plasma 33 10 - 35 U/L 01/27/2025 4:26 PM EDT [facility] ALT, Plasma 11 10 - 35 U/L 01/27/2025 4:26 PM EDT [facility] Alkaline Phosphatase, Plasma 43(L) 46 - 142 U/L 01/27/2025 4:26 PM EDT [facility] Total Bilirubin, Plasma 0.5 0.2 - 1.1 mg/dL 01/27/2025 4:26 PM EDT [facility] eGFRcr 52.8 mL/min/1.7 3m*2 01/27/2025 4:26 PM EDT [facility] Comment:Reported eGFRcr in m L/min/1.73m2 is based the CKD-EPI 2020 equation that does not use a race coefficient. Blood Blood sample taken from central line / Unknown (Port) Long-term Catheter / Unknown 01/27/2025 3:00 PM EDT 01/27/2025 3:54 PM EDT us New Mckinney MD LAB BLOOD ORDERABLES Final Re sult [facility] [address] [place] [address] * BIOPSY BONE MARROW (01/12/2025 10:00 AM EDT) Narrative Rebecca Barrientos PA - 01/12/2025 10:00 AM EDT Rebecca Barrientos PA 01/12/2025 12:20 PM Biopsy bone marrow Performed by: Rebecca Barrientos PA Authorized by: Rebecca Barrientos PA us Rebecca SUAREZ IN CLINIC/BEDSIDE ORDERABLE S Final Result * Chromosome Karyotype, Oncology (01/12/2025 9:55 AM EDT) Specimen Type Bone Marrow 01/20/2025 12:21 PM EDT [facility] Clinical Indication Myelodysplastic Syndrome 01/20/2025 12:21 PM EDT [facility] Specimen Adequacy Adequate 025 12:21 PM EDT [facility] Chromosome Analysis Result Giemsa-banded metaphase cells from unstimulated bone marrow cultures showed the following chromosome pattern: 43~44,X,-X,add(5)( q23),del(5)(q13q33 ),todd(7)ins?(7)(q1 1.2q11.2)t(7;12)(q 11.2;q13),-12,todd( 17)add(17)(p13.2)a dd(17)(q21)[16]/88 ,XX,idemx2[cp3]/46 ,XY[1] 01/20/2025 12:21 PM EDT [facility] Interpretation Abnormal female chromosome analysis. 95% of metaphase cells analyzed showed clonal abnormalities consistent with this patient's previous abnormal results (see [facility]-[id number]). Clinical correlation is recommended. Note: Per [employer] (CAP) requirement an additional karyotype was performed and charged due to the presence of clonal abnormalities. # cells counted = 20 # cells analyzed = 20 # cells karyotyped = 3 Band resolution: 400-450 01/20/2025 12:21 PM EDT [facility] Pathologist Signature Reviewed by: Corey Tejada 01/20/2025 12:21 PM EDT [facility] Bone Marrow Non-blood Collection / Unknown 01/12/2025 9:55 AM EDT 01/12/2025 12:37 PM EDT us New Mckinney MD LAB CYTOGENETICS ORDERABLES F inal Result [facility] [address] [place] [address] * Leukemia/Lymphoma - Immunophenotyping by Flow Cytometry (01/12/2025 9:55 AM EDT) Clinical Indication MDS 01/12/2025 4:19 PM EDT [facility] Flow Cytometry Interpretation APPROXIMATELY 27% MYELOID BLASTS EXPRESSING CD34, CD117, VARIABLE CD33, PARTIAL CD56, VARIABLE HLA-DR, PARTIAL DIM CD7, CD38 AND DIM CD45, SEE COMMENT, BBONE MARROW ASPIRATE. 01/12/2025 4:19 PM T [facility] Comments Specimen viability is 89%. [...] surface light chains 01/12/2025 4:19 PM T [facility] Disclaimer This test was developed and its performance characteristics determined by the Immuno-Molecular Pathology Laboratory at the [facility]. It has not been cleared or [...] clinical laboratory testing. 01/12/2025 4:19 PM T [facility] Pathologist Signature Reviewed by: Asad Hartman MD 01/12/2025 4:19 PM T [facility] MRD Indicated Test Not Indicated 4:19 PM T [facility] Bone Marrow Specimen from bone marrow obtained by aspiration / Unknown Non-blood Collection / Unknown 01/12/2025 9:55 AM EDT 01/12/2025 1:48 PM EDT us New Mckinney MD LAB FLOW CYTOMETRY ORDERABLES Final Result [facility] [address] [place] [address] * Bone marrow exam (01/12/2025 9:55 AM EDT) Case Report Bone Marrow Case: [id number] Authorizing Provider: New Mckinney MD Collected: 01/12/2025 0955 Ordering Location: [facility] Hematology/BMT and Received: 01/12/2025 1143 Cellular Therapy Program Pathologist: Asad Hartman MD Specimens: A) - Bone Marrow Aspirate, left B) - Bone Marrow Biopsy, left C) - Peripheral Blood for Bone Marrow 5:16 PM EDT [facility] Cytogenetics Report, Addendum Chromosome Analysis Result: Giemsa-banded metaphase cells from unstimulated bone marrow cultures showed the following chromosome pattern: 43~44,X,-X,add(5)( q23),del(5)(q13q33 ),todd(7)ins?(7)(q1 1.2q11.2)t(7;12)(q 11.2;q13),-12,todd( 17)add(17)(p13.2)a dd(17)(q21)[16]/88 ,XX,idemx2[cp3]/46 ,XY[1] Interpretation: Abnormal female chromosome analysis. 95% of metaphase cells analyzed showed clonal abnormalities consistent with this patient's previous abnormal results (see [id number]). 5:16 PM EDT [facility] Addendum electronically signed by Asad Hartman MD on 01/23/2025 at 1716 EDT Final Diagnosis PERIPHERAL BLOOD AND BONE MARROW, LEFT POSTERIOR ILIAC CREST, (PERIPHERAL SMEAR, ASPIRATE SMEAR, AND CORE BIOPSY): - HYPOCELLULAR BONE MARROW WITH MARKEDLY DECREASED MEGAKARYOCYTES, DECREASED MATURING GRANULOPOIESIS, APPROXIMATELY 7-10% VARIABLY DISTRIBUTED BLASTS AND MORE THAN 50% RING SIDEROBLASTS, SEE COMMENT. 5:16 PM EDT [facility] at 0941 EDT Comment The discrepancy between blasts percentage by morphologic assessment and flow cytometric analysis is due to erythroid precursors that constitute majority of bone marrow cellularity and are removed by flow cytometry. 5:16 PM EDT [facility] Clinical Information MDS 01/14 5:16 PM EDT [facility] CBC and Differential PERIPHERAL BLOOD: [...] cells. Platelets are decreased. 5:16 PM EDT [facility] Bone Marrow Differential BONE MARROW DIFFERENTIAL: 300 cells Normal Patient Neutrophils 15-50 12 Metamyelocytes 4-19 0 Myelocytes 1-18 1 Promyelocytes 1-8 0 Blasts 0-2 7 Monocytes 0-5 7 Erythroid 16-38 61 Lymphocytes 3-24 7 Eosinophils 0-6 3 Basophils 0-2 0 Plasma cells 0-4 2 Other 5:16 PM EDT [facility] Aspirate Smear The bone marrow [...] 50% of erythroid precursors. 5:16 PM EDT [facility] Core Biopsy CELLULARITY: Variably cellular [...] Bony trabeculae are normal. 5:16 PM T [facility] Special and Immunohistochemical Stains Immunohistochemica l stains [...] the [facility], [address] [place] [address]. All tests reported here, except those addressing [...] negativity on decalcified specimens. 5:16 PM T [facility] Flow Cytometry Interpretation Flow cytometric analysis demonstrates approximately 27% population of myeloid blasts in this patient with history of myelodysplastic syndrome; expressing CD34, CD117, variable CD33, partial CD56, variable HLA-DR, partial dim CD7, CD38 and dim CD45 ([id number]). 5:16 PM EDT [facility] Gross Description B. LEFT A single specimen is received in formalin labeled bone marrow biopsy left posterior iliac crest and consists of 1 piece(s) of red/white tissue measuring 0.9 cm in length 0.2 cm in diameter. The specimen is submitted in to Histology for decalcification and routine processing. Cold Time: <1m 5:16 PM EDT [facility] Note: A resident was involved in the service. I attest I examined the relevant preparations for the specimens and confirmed the diagnosis or interpretation. 5:16 PM EDT [facility] Bone Marrow Peripheral blood specimen [...] ed Result - Final Performing Organization Address City/[facility]/ZIP Co de Phone Number [facility] [address] [place] [address] * Hepatitis C Antibody w/Reflex to HCV Quant PCR (01/07/2024 8:42 AM EDT) Hepatitis C Antibody Negative Negative 01/07/2024 10:13 AM EDT [facility] Blood Venous blood specimen / Unknown Venipuncture / Unknown 01/07/2024 8:42 AM EDT 01/07/2024 9:25 AM EDT New Mckinney MD LAB BLOOD ORDERABLES Final Re sult Performing Organization Address City/[facility]/ZIP Co de Phone Number [facility] [address] [place] [address] from Last 3 Months or Most Recently Relevant to Health [place] [address] [facility] Care Teams Grocery Clerk Stocking Relationship Specialty Start Date End Date Jevon Vazquez MD [address] [place] [address] [address] [place] [address] PCP - General 03/23/22
--- OUTSIDE RECORDS SUMMARY | 2025-02-25 09:04 | XMS_ITS | Encounter Summary ---
Author Organization [facility] Address [address] [place] [address] Care Team Providers Care Delivery Helper Name Role Phone Jevon Vazquez MD Primary Care Provider [phone] Reason for Referral * Genetic Testing (Routine) - Closed Specialty Diagnoses / Procedures Referred By Rebecca Referred To Contact Lab Diagnoses Myelodysplastic syndrome (CMS/HCC) Procedures Cytogenetics Testing, Oncology New Mckinney MD [address] [address] Phone: tel: fax: Referral ID Status Reason Start Date Expiration Date Visits Re quested Visits Authorized [id number] Closed 12/29/2024 06/30/2026 1 1 * Genetic Testing (Routine) - Authorized Specialty Diagnoses / Procedures [facility] Referred To Contact Lab Diagnoses Myelodysplastic syndrome (CMS/HCC) Procedures Leukemia/Lymphoma - Immunophenotyping by Flow Cytometry New Mckinney MD 800 [facility] [address] [address] Phone: tel: fax: Referral ID Status Reason Start Date Expiration Date V isits Requested Visits Authorized [id number] Authorized 12/29/2024 06/30/2026 1 1 * Genetic Testing (Routine) - Authorized Specialty Diagnoses / Procedures [facility] Referred To Contact Lab Diagnoses Myelodysplastic syndrome (CMS/HCC) Procedures Bone marrow exam New Mckinney MD 800 [facility] [address] [place] [phone] Phone: tel: fax: Referral ID Status Reason Start Date Expiration Date V isits Requested Visits Authorized [id number] Authorized 12/29/2024 06/30/2026 1 1 Encounter Details Date Type Department Care Team ([facility] Contact Info) Description 12/29/2024 Orders Only [facility] Hematology/BMT and Cellular Therapy Program [address] [place] [address] New Mckinney MD 800 [facility] [address] [place] [phone] Myelodysplastic syndrome (CMS/HCC) (Primary Dx) Social [...] Hematology/BMT and Cellular Therapy Program [address] [place] [address] 03/03/2025 1:30 PM EST Office Visit [facility] Hematology/BMT and Cellular Therapy Program [address] [place] [address] Zonia Hoffman APRN 800 [facility] [address] [address] documented as of this encounter Results * Leukemia/Lymphoma - Immunophenotyping by Flow Cytometry (01/12/2025 9:55 AM EDT) Clinical Indication MDS 01/12/2025 4:19 PM EDT [facility] Flow Cytometry Interpretation APPROXIMATELY 27% MYELOID BLASTS EXPRESSING CD34, CD117, VARIABLE CD33, PARTIAL CD56, VARIABLE HLA-DR, PARTIAL DIM CD7, CD38 AND DIM CD45, SEE COMMENT, BBONE MARROW ASPIRATE. 01/12/2025 4:19 PM EDT [facility] Comments Specimen viability is 89%. [...] light chains 01/12/2025 4:[address] [facility] Disclaimer This test was [...] clinical laboratory testing. 01/12/2025 4:19 PM EDT [facility] Pathologist Signature Reviewed by: Asad Hartman MD 01/12/2025 4:19 PM EDT [facility] MRD Indicated Test Not Indicated 4:19 PM EDT [facility] Bone Marrow Specimen from bone marrow obtained by aspiration / Unknown Non-blood Collection / Unknown 01/12/2025 9:55 AM EDT 01/12/2025 1:48 PM EDT us New Mckinney MD LAB FLOW CYTOMETRY ORDERABLES Final Result [facility] [address] [place] [address] * Bone marrow exam (01/12/2025 9:55 AM EDT) Case Report Bone Marrow Case: [id number] Authorizing Provider: New Mckinney MD Collected: 01/12/2025 0955 Ordering Location: [facility] Hematology/BMT and Received: 01/12/2025 [facility] Cellular Therapy Program Pathologist: Asad Hartman MD Specimens: A) - Bone Marrow Aspirate, left B) - Bone Marrow Biopsy, left C) - Peripheral Blood for Bone Marrow 5:[address] [facility] Cytogenetics Report, Addendum Chromosome Analysis Result: Giemsa-banded metaphase cells from unstimulated bone marrow cultures showed the following chromosome pattern: 43~44,X,-X,add(5)( q23),del(5)(q13q33 ),todd(7)ins?(7)(q1 1.2q11.2)t(7;12)(q 11.2;q13),-12,todd( 17)add(17)(p13.2)a dd(17)(q21)[16]/88 ,XX,idemx2[cp3]/46 ,XY[1] Interpretation: Abnormal female chromosome analysis. 95% of metaphase cells analyzed showed clonal abnormalities consistent with this patient's previous abnormal results (see [facility]-[id number]). 5:16 PM EDT [facility] Addendum electronically signed by Asad Hartman MD on 01/23/2025 at 1716 EDT Final Diagnosis PERIPHERAL BLOOD AND BONE MARROW, LEFT POSTERIOR ILIAC CREST, (PERIPHERAL SMEAR, ASPIRATE SMEAR, AND CORE BIOPSY): - HYPOCELLULAR BONE MARROW WITH MARKEDLY DECREASED MEGAKARYOCYTES, DECREASED MATURING GRANULOPOIESIS, APPROXIMATELY 7-10% VARIABLY DISTRIBUTED BLASTS AND MORE THAN 50% RING SIDEROBLASTS, SEE COMMENT. 5:16 PM EDT [facility] at 0941 EDT Comment The discrepancy between blasts percentage by morphologic assessment and flow cytometric analysis is due to erythroid precursors that constitute majority of bone marrow cellularity and are removed by flow cytometry. 5:16 PM EDT [facility] Clinical Information MDS 01/14 5:16 PM EDT [facility] CBC and Differential PERIPHERAL BLOOD: [...] cells. Platelets are decreased. 5:16 PM EDT [facility] Bone Marrow Differential BONE MARROW DIFFERENTIAL: 300 cells Normal Patient Neutrophils 15-50 12 Metamyelocytes 4-19 0 Myelocytes 1-18 1 Promyelocytes 1-8 0 Blasts 0-2 7 Monocytes 0-5 7 Erythroid 16-38 61 Lymphocytes 3-24 7 Eosinophils 0-6 3 Basophils 0-2 0 Plasma cells 0-4 2 Other 5:16 PM EDT [facility] Aspirate Smear The bone marrow [...] of erythroid precursors. 5 5:16 PM EDT [facility] Core Biopsy CELLULARITY: Variably cellular [...] trabeculae are normal. 5 5:[address] [facility] Special and Immunohistochemical Stains Immunohistochemica [...] performed at the [facility], [address] [place] [address]. All tests reported here, except those addressing [...] negativity on decalcified specimens. 5:16 PM EDT [facility] Flow Cytometry Interpretation Flow cytometric analysis demonstrates approximately 27% population of myeloid blasts in this patient with history of myelodysplastic syndrome; expressing CD34, CD117, variable CD33, partial CD56, variable HLA-DR, partial dim CD7, CD38 and dim CD45 ([id number]). 5:16 PM EDT [facility] Gross Description B. LEFT A single specimen is received in formalin labeled bone marrow biopsy left posterior iliac crest and consists of 1 piece(s) of red/white tissue measuring 0.9 cm in length 0.2 cm in diameter. The specimen is submitted in to Histology for decalcification and routine processing. Cold Time: <1m 5:16 PM EDT [facility] Note: A resident was involved in the service. I attest I examined the relevant preparations for the specimens and confirmed the diagnosis or interpretation. 5:16 PM EDT [facility] Bone Marrow Peripheral blood specimen [...] PATHOLOGY ORDERABLES Edit ed Result - Final [facility] [address] [place] [address] documented in this encounter Visit Diagnoses Diagnosis Myelodysplastic syndrome (CMS/HCC)- Primary Myelodysplastic syndrome, unspecified documented in this encounter Additional Health Concerns Assessment Noted Time A fall risk assessment has been complete d for the patient 09/30/2024 9:33 AM EDT A Body Mass Index follow-up plan has been documented for the patient 05/28/2024 1:52 PM EST documented as of this encounter Care Teams Delivery Helper Relationship Specialty Start Date End Date Jevon Vazquez MD [address] [place] [address] #1 #1 [place] [address] PCP - General 03/23/22 documented as of this encounter
--- OUTSIDE RECORDS SUMMARY | 2025-02-25 09:04 | XMS_ITS | Encounter Summary ---
Author Organization [facility] Address [address] [place] [address] Care Team Providers Care It Program Manager Name Role Phone Jevon Vazquez MD Primary Care Provider [phone] Encounter Details Date Type Department Care Team ([facility] Contact Info) Description 01/27/2025 Telephone [facility] Hematology/BMT and Cellular Therapy Program [address] [place] [address] Alyson Vivas RN Social History Tobacco Use [...] Hematology/BMT and Cellular Therapy Program [address] [place] [address] 03/03/2025 1:30 PM EST Office Visit [facility] Hematology/BMT and Cellular Therapy Program [address] [place] [place] [phone] Zonia Hoffman, GEOPHYSICAL OBSERVER 800 [facility] [address] [place] [address] documented as of this encounter Visit Diagnoses Not on filedocumented in this encounter Additional Health Concerns Assessment Noted Time A fall risk assessment has been complete d for the patient 01/27/2025 3:25 PM EDT A Body Mass Index follow-up plan has been documented for the patient 05/28/2024 1:52 PM EST documented as of this encounter Care Teams It Program Manager Relationship Specialty Start Date End Date Jevon Vazquez MD [address] [place] [address] [address]1 [address]1 [place] [address] PCP - General 03/23/22 documented as of this encounter
--- OUTSIDE RECORDS SUMMARY | 2025-02-25 09:04 | XMS_ITS | Encounter Summary ---
Author Organization [facility] Address [address] [place] [address] Care Team Providers Care Electroencephalographic Technologist Name Role Phone Jevon Vazquez MD Primary Care Provider [phone] Encounter Details Date Type Department Care Team ([facility] Contact Info) Description 01/07/2025 Telephone [facility] Hematology/BMT and Cellular Therapy Program [address] [phone] Sabine Clemons MD 800 [facility] [address] [place] [phone] Social History Tobacco Use Types Packs/Day Years [...] [facility] Contact Info) Description 03/03/2025 1:00 PM EST Clinical Support [facility] Hematology/BMT and Cellular Therapy Program [address] [phone] 03/03/2025 1:30 PM EST Office Visit [facility] Hematology/BMT and Cellular Therapy Program [address] [phone] Zonia Hoffman, DIGITAL COMPUTER SYSTEMS ANALYST 800 [facility] [address] [place] [address] documented as of this encounter Visit Diagnoses Not on filedocumented in this encounter Additional Health Concerns Assessment Noted Time A fall risk assessment has been complete d for the patient 09/30/2024 9:33 AM EDT A Body Mass Index follow-up plan has been documented for the patient 05/28/2024 1:52 PM EST documented as of this encounter Care Teams Electroencephalographic Technologist Relationship Specialty Start Date End Date Jevon Vazquez MD [address] [place] [address] #1 [address]1 [place] [address] PCP - General 03/23/22 documented as of this encounter
--- OUTSIDE RECORDS SUMMARY | 2025-02-25 09:04 | XMS_ITS | Clinical Summary ---
Author Organization [facility] Address [address] [place] [address] Phone Care Team Providers Care Chief Creative Officer Name Role Phone Jevon Vazquez MD [...] L4-5 LAMINECTOMY; Surgeon: Ivan Bartholomew MD; Location: [facility] MAIN OR; Service: Spine Medical [...] 5.6 % 11/14/2022 2:57 PM EDT PREFERRED Auto I.D., Voxy Est. Avg Glucose 148 mg/dL 11/14/2022 2:57 PM EDT [facility], Voxy Blood VENOUS BLOOD / Unknown Venipuncture / Unknown 11/11/2022 3:46 PM EDT 11/11/2022 3:55 PM EDT Narrative PREFERRED [facility] - 11/14/2022 2:57 PM EDT REFERENCE RANGE: Normal: 4.0-5.6% Pre-diabetes: 5.7-6.4% Provisional diagnosis of diabetes: >6.4% Hgb F>10% and anything which shortens red cell survival, such as hemolytic anemia, or unstable hemoglobin variants such as HbSS, HbSC, or HbCC, will lower the HbA1c value associated with a given level of glycemic control. us eLxi Maloney DO CHEMISTRY ORDERABLES Final R esult STATS Group [address] [facility] , [address] [place] [id number] * (ABNORMAL) BASIC METABOLIC PANEL (11/11/2022 3:46 PM EDT) Sodium 136 136 - 145 mmol/L 11/11/2022 4:11 PM EDT [facility] Potassium 3.8 3.5 - 5.0 mmol/L 11/11/2022 4:11 PM EDT [facility] Chloride 102 98 - 107 mmol/L 11/11/2022 4:11 PM EDT [facility] Total CO2 24 22 - 29 mmol/L 11/11/2022 4:11 PM EDT [facility] Anion Gap 10 7 - 16 mmol/L 11/11/2022 4:11 PM EDT [facility] Calcium 10.1 8.8 - 10.4 mg/dL 11/11/2022 4:11 PM EDT [facility] Glucose Lvl 147(H) 82 - 100 mg/dL 11/11/2022 4:11 PM EDT [facility] BUN 15 8 - 23 mg/dL 11/11/2022 4:11 PM EDT [facility] Creatinine 0.82 0.51 - 1.30 mg/dL 11/11/2022 4:11 PM EDT [facility] eGFR (CKD-EPIcr 2021) 76 >=60 mL/min/1.7 3 m2 11/11/2022 4:11 PM EDT [facility] Comment:Estimated GFR was ca lculated using the CKD-EPIcr (2020) equation refit without race. The equation is recommended by the National Kidney Foundation - [place] [employer] Nephrology Task Force. Blood VENOUS BLOOD / Unknown Venipuncture / Unknown 11/11/2022 3:46 PM EDT 11/11/2022 3:54 PM EDT us Leona Hanna DO CHEMISTRY ORDERABLES Final Res ult [facility] [address] [place] [address] * DX BONE DENSITY AXIAL SKELETON (07/25/2022 9:14 AM EDT) Anatomical Region Laterality Modality Dexa Scan 07/25/2022 Narrative 07/25/2022 3:45 PM EDT Indication: The patient is a female age 65 or older who requires a bone density assessment. Study was performed on [employer] 5. Bone Density: Region BMD T-score Z-score [...] Payer (Ef fective 2016-Present) Name:Ashly Hernández Member ID:[id number] Relation to Subscriber:Self Name:Ashly Hernández Subscriber ID:[id number] Payer ID:Not on file Group ID:Not on file Type:Not on file Address: [address] MEDICARE SUPPLEMENT MEDICARE [place] PART A & B MEDICARE [place] PART A AND B Member Subscriber Plan / Payer (Ef fective 2016-Present) Name:Ashly Hernández Member ID:[id number] Relation to Subscriber:Self Name:Ashly Hernández Subscriber ID:[id number] Payer ID:Not on file Group ID:Not on file Type:Not on file Address: [address] MEDICARE SUPPLEMENT [employer] MEDICARE [place] PART A AND B [address] MEDICARE SUPPLEMENT Advance Directives For more information, please contact: [phone] * Full Code (Latest Code Status on File) Date Activated Date Inactivated Comments 11/14/2022 6:53 PM 11/16/2022 7:37 PM * Full Code Date Activated Date Inactivated Comments 11/12/2022 5:17 AM 11/14/2022 6:47 PM Care Teams Chief Creative Officer Relationship Specialty Start Date End Date Jevon Vazquez MD [address] [place] [address] PCP - General Family Medicine 11/10/22
--- OUTSIDE RECORDS SUMMARY | 2025-02-25 09:04 | XMS_ITS | Encounter Summary ---
Author Organization [facility] Address [address] [place] [address] Care Team Providers Care Superannuation Clerk Name Role Phone Jevon Vazquez MD Primary Care Provider [phone] Encounter Details Date Type Department Care Team [...] Cellular Therapy Program [address] [phone] 03/03/2025 1:30 PM EST Office Visit [facility] Hematology/BMT and Cellular Therapy Program [address] [phone] Zonia Hoffman, PAY PER CLICK STRATEGIST 800 [facility] [address] [place] [phone] documented as of this encounter Visit Diagnoses Not on filedocumented in this encounter Additional Health Concerns Assessment Noted Time A fall risk assessment has been complete d for the patient 09/30/2024 9:33 AM EDT A Body Mass Index follow-up plan has been documented for the patient 05/28/2024 1:52 PM EST documented as of this encounter Care Teams Superannuation Clerk Relationship Specialty Start Date End Date Jevon Vazquez MD [address] [place] [address] #1 #1 [place] [address] PCP - General 03/23/22 documented as of this encounter
--- OUTSIDE RECORDS SUMMARY | 2025-02-25 09:04 | XMS_ITS | Encounter Summary ---
Author Organization [facility] Address [address] [place] [address] Care Team Providers Care Substitute Bus Driver Name Role Phone Jevon Vazquez MD Primary Care Provider [phone] Encounter Details Date Type Department Care Team [...] Hematology/BMT and Cellular Therapy Program [address] [phone] 03/03/2025 1:30 PM EST Office Visit [facility] Hematology/BMT and Cellular Therapy Program [address] [phone] Zonia Hoffman, WALLPAPER CONSULTANT 800 [facility] [address] [place] [phone] documented as of this encounter Visit Diagnoses Not on filedocumented in this encounter Additional Health Concerns Assessment Noted Time A fall risk assessment has been complete d for the patient 09/30/2024 9:33 AM EDT A Body Mass Index follow-up plan has been documented for the patient 05/28/2024 1:52 PM EST documented as of this encounter Care Teams Substitute Bus Driver Relationship Specialty Start Date End Date Jevon Vazquez MD [address] [place] [address] #1 #1 [place] [address] PCP - General 03/23/22 documented as of this encounter
--- OUTSIDE RECORDS SUMMARY | 2025-02-25 09:04 | XMS_ITS | Encounter Summary ---
Author Organization [facility] Address [address] [place] [address] Care Team Providers Care Meal Cook Name Role Phone Jevon Vazquez MD Primary Care Provider Encounter Details Date Type Department Care Team ([facility] Contact Info) Description 01/28/2025 Telephone [facility] Hematology/BMT and Cellular Therapy Program [address] [phone] New Mckinney MD 800 [facility] [address] [place] [phone] Social History Tobacco Use Types Packs/Day Years [...] patient to inform patient of appointment at [facility] on 02/04. Patient was informed that a AdTaps[employer] message will be sent with information. documented in this encounter Plan of Treatment Upcoming Encounters Date Type Department Care Team ([facility] Contact Info) Description 03/03/2025 1:00 PM EST Clinical Support [facility] Hematology/BMT and Cellular Therapy Program [address] [place] [address] 03/03/2025 1:30 PM EST Office Visit PAV Hematology/BMT and Cellular Therapy Program [address] [place] [address] Zonia Hoffman, SOFTWARE SALES EXECUTIVE 800 [facility] [address] [place] [phone] documented as of this encounter Visit Diagnoses Not on filedocumented in this encounter Additional Health Concerns Assessment Noted Time A fall risk assessment has been complete d for the patient 01/27/2025 3:25 PM EDT A Body Mass Index follow-up plan has been documented for the patient 05/28/2024 1:52 PM EST documented as of this encounter Care Teams Meal Cook Relationship Specialty Start Date End Date Jevon Vazquez MD [address] [place] [address] #1 #1 [place] [address] PCP - General 03/23/22 documented as of this encounter
--- OUTSIDE RECORDS SUMMARY | 2025-02-25 09:04 | XMS_ITS | Encounter Summary ---
Author Organization Healthcare Address [address] [place] [address] Care Team Providers Care Certified Massage Therapist Name Role Phone Jevon Vazquez MD [...] Hematology/BMT and Cellular Therapy Program [address] [phone] 03/03/2025 1:30 PM EST Office Visit [facility] Hematology/BMT and Cellular Therapy Program [address] [phone] Zonia Hoffman, CAR GROOMER 800 [facility] [address] [place] [phone] documented as of this encounter Visit Diagnoses Not on filedocumented in this encounter Additional Health Concerns Assessment Noted Time A fall risk assessment has been complete d for the patient 09/30/2024 9:33 AM EDT A Body Mass Index follow-up plan has been documented for the patient 05/28/2024 1:52 PM EST documented as of this encounter Care Teams Certified Massage Therapist Relationship Specialty Start Date End Date Jevon Vazquez MD [address] [place] [address] #1 #1 [place] [address] PCP - General 03/23/22 documented as of this encounter
--- OUTSIDE RECORDS SUMMARY | 2025-02-25 09:04 | XMS_ITS | Encounter Summary ---
Author Organization [facility] Address [address] [place] [address] Care Team Providers Care Animal Control Licensing Worker Name Role Phone Jevon Vazquez MD Primary Care Provider [phone] Reason for Visit * Reason Comments Med Refill Encounter Details Date Type Department Care Team ([facility] Contact Info) Description 01/05/2025 Refill [facility] Hematology/BMT and Cellular Therapy Program [address] [phone] Zonia Hoffman, HERITAGE CONSULTANT 800 [facility] [address] [place] [phone] Social History Tobacco Use Types Packs/Day Years [...] Hematology/BMT and Cellular Therapy Program [address] [phone] 03/03/2025 1:30 PM EST Office Visit [facility] Hematology/BMT and Cellular Therapy Program [address] [phone] Zonia Hoffamn, HERITAGE CONSULTANT 800 [facility] [address] [place] [address] documented as of this encounter Visit Diagnoses Not on filedocumented in this encounter Additional Health Concerns Assessment Noted Time A fall risk assessment has been complete d for the patient 09/30/2024 9:33 AM EDT A Body Mass Index follow-up plan has been documented for the patient 05/28/2024 1:52 PM EST documented as of this encounter Care Teams Animal Control Licensing Worker Relationship Specialty Start Date End Date Jevon Vazquez MD [address] [place] [address] #1 [address]1 [place] [address] PCP - General 03/23/22 documented as of this encounter
--- OUTSIDE RECORDS SUMMARY | 2025-02-25 09:04 | XMS_ITS | Encounter Summary ---
Author Organization Healthcare Address [address] [place] [address] Care Team Providers Care Cigarette Packer Name Role Phone Jevon Vazquez MD Primary Care Provider [phone] Encounter Details Date Type Department Care Team [...] Cellular Therapy Program [address] [phone] 03/03/2025 1:30 PM EST Office Visit [facility] Hematology/BMT and Cellular Therapy Program [address] [phone] Zonia Hoffman, STAGE TECHNICIAN 800 [facility] [address] [place] [phone] documented as of this encounter Visit Diagnoses Not on filedocumented in this encounter Additional Health Concerns Assessment Noted Time A fall risk assessment has been complete d for the patient 09/30/2024 9:33 AM EDT A Body Mass Index follow-up plan has been documented for the patient 05/28/2024 1:52 PM EST documented as of this encounter Care Teams Cigarette Packer Relationship Specialty Start Date End Date Jevon Vazquez MD [address] [place] [address] #1 #1 [place] [address] PCP - General 03/23/22 documented as of this encounter
--- OUTSIDE RECORDS SUMMARY | 2025-02-25 09:04 | XMS_ITS | Encounter Summary ---
Author Organization Healthcare Address [address] [place] [address] Care Team Providers Care Crankshaft Grinder Name Role Phone Jevon Vazquez MD Primary Care Provider [phone] Encounter Details Date Type Department Care Team ([facility] Contact Info) Description 12/29/2024 Telephone [facility] Hematology/BMT and Cellular Therapy Program [address] [phone] Bibiana Sepulveda, PAPER SEALER 800 [facility] [address] [place] [phone] Social History Tobacco Use Types Packs/Day Years [...] wants to repeat BMBx. She verbalizes understanding. Production Painter made aware. documented in this encounter Plan of Treatment Upcoming Encounters Date Type Department Care Team ([facility] Contact Info) Description 03/03/2025 1:00 PM EST Clinical Support [facility] Hematology/BMT and Cellular Therapy Program [address] [place] [address] 03/03/2025 1:30 PM EST Office Visit PAV Hematology/BMT and Cellular Therapy Program [address] [place] [address] Zonia Hoffman, PAPER SEALER 800 [facility] [address] [place] [phone] documented as of this encounter Visit Diagnoses Not on filedocumented in this encounter Additional Health Concerns Assessment Noted Time A fall risk assessment has been complete d for the patient 09/30/2024 9:33 AM EDT A Body Mass Index follow-up plan has been documented for the patient 05/28/2024 1:52 PM EST documented as of this encounter Care Teams Crankshaft Grinder Relationship Specialty Start Date End Date Jevon Vazquez MD [address] [place] [address] #1 #1 [place] [address] PCP - General 03/23/22 documented as of this encounter
--- OUTSIDE RECORDS SUMMARY | 2025-02-25 09:04 | XMS_ITS | Encounter Summary ---
Author Organization [facility] Address [address] [place] [address] Care Team Providers Care Apprenticeship Consultant Name Role Phone Jevon Vazquez MD Primary Care Provider [phone] Encounter Details Date Type Department Care Team (Late st Contact Info) Description 01/27/2025 Telephone [facility] [address] [place] [phone] Emil Hardy, PharmD Social History Tobacco Use [...] Valdes, PharmD - 01/28/2025 2:40 PM EDT [facility] Specialty Medication Initial Care Plan [...] Injectable, preservative free 03/21/2024 Moderna COVID-19 Vaccine (Equipment Engineering Technician) 12+ years 06/12/2020, 07/10/2020, 02/18/2021 Selected lab [...] Patient reports education was provided by [facility]. She denied further education at [...] Hematology/BMT and Cellular Therapy Program [address] [address] 03/03/2025 1:30 PM EST Office Visit PAV Hematology/BMT and Cellular Therapy Program [address] [address] Zonia Hoffman, LAWN MAINTENANCE WORKER 800 [facility] [address] [place] [phone] documented as of this encounter Visit Diagnoses Not on filedocumented in this encounter Additional Health Concerns Assessment Noted Time A fall risk assessment has been complete d for the patient 01/27/2025 3:25 PM EDT A Body Mass Index follow-up plan has been documented for the patient 05/28/2024 1:52 PM EST documented as of this encounter Care Teams Apprenticeship Consultant Relationship Specialty Start Date End Date Jevon Vazquez MD [address] [place] [address] #1 #1 [place] [address] PCP - General 03/23/22 documented as of this encounter
--- OUTSIDE RECORDS SUMMARY | 2025-02-25 09:04 | XMS_ITS | Encounter Summary ---
Author Organization Healthcare Address [address] [place] [address] Care Team Providers Care Face Painter Name Role Phone Jevon Vazquez MD [...] Cellular Therapy Program [address] [address] 03/03/2025 1:30 PM EST Office Visit [facility] Hematology/BMT and Cellular Therapy Program [address] [address] Zonia Hoffman, ANALYTICS DEVELOPER 800 [facility] [address] [place] [phone] documented as of this encounter Visit Diagnoses Not on filedocumented in this encounter Additional Health Concerns Assessment Noted Time A fall risk assessment has been complete d for the patient 01/27/2025 3:25 PM EDT A Body Mass Index follow-up plan has been documented for the patient 05/28/2024 1:52 PM EST documented as of this encounter Care Teams Face Painter Relationship Specialty Start Date End Date Jevon Vazquez MD [address] [place] [address] #1 #1 [place] [address] PCP - General 03/23/22 documented as of this encounter
--- OUTSIDE RECORDS SUMMARY | 2025-02-25 09:04 | XMS_ITS | Clinical Summary ---
Author Organization [facility] Address [address] [place] [address] Care Team Providers Care Pinking Machine Operator Name Role Phone David Vazquez Primary Care Provider [phone] Allergies No known active allergies Medications atorvastatin [...] Discontinued 01/24/2023 Medical Devices Implanted Type Area Fire Investigator Device Identifier Shelf Expiration Date Model / Serial / Lot Mis Ply Scr 6.5x50mm - [id number] Implanted:Qty : 1 on 01/30/2023 by Ivan Bartholomew MD at [facility] Screw N/A: Spine Lumbar [employer] [id number] / / Mis Ply Scr 6.5x45mm - [id number] Implanted:Qty : 3 on 01/30/2023 by Ivan Bartholomew MD at [facility] Screw N/A: Spine Lumbar [employer] [id number] / / Reline Mas Reduction Screw 7.5x45 - [id number] Implanted:Qty : 2 on 01/30/2023 by Ivan Bartholomew MD at [facility] Screw N/A: Spine Lumbar [employer] [id number] / / Grft Dbm Vesuvius Putty 5cc - [id number] Implanted:Qty : 1 on 01/30/2023 by Ivan Bartholomew MD at [facility] [employer] [id number] 04/20/2025 [id number] P / [id number] / Putty I-Factor 5.0cc - [id number] Implanted:Qty : 1 on 01/30/2023 by Ivan Bartholomew MD at [facility] N/A: Spine Lumbar [employer] 03/15/2025 [id number] / / [id number] Modulus Xlw [id number] 10 Degree - [id number] Implanted:Qty : 1 on 01/30/2023 by Ivan Bartholomew MD at [facility] N/A: Spine Lumbar [employer] [id number] / / [id number] Modulus Xlw [id number] - [id number] Implanted:Qty : 1 on 01/30/2023 by Ivan Bartholomew MD at [facility] N/A: Spine Lumbar [employer] 09/28/2027 [id number] / / [id number] Reln Lock Scr 5.5mm Opn Tulip - [id number] Implanted:Qty : 6 on 01/30/2023 by Ivan Bartholomew MD at [facility] N/A: Spine Lumbar [employer] [id number] / / Reln Mas Ti Petar 5.5x70mm - [id number] Implanted:Qty : 2 on 01/30/2023 by Ivan Bartholomew MD at [facility] N/A: Spine Lumbar [employer] [id number] / / Procedures Procedure Name Priority Date/Time [...] Glucose 125(H) 71 - 99 mg/dL [facility] Comment:Reference range (71- 99 mg/dL) [...] Calcium 10.3 8.5 - 10.5 mg/dL [facility] BUN/Creatinine Ratio 14 [facility] Serum 01/24/2023 2:32 PM EDT 01/24/2023 5:54 PM EDT Lexi SUAREZ CHEMISTRY ORDERABLES Final Resu lt [facility] [address] from Last 3 Months or Most Recently Relevant to Health Maintenance Insurance MEDICARE Member Subscriber Plan / Payer (Ef fective 2016-Present) Name:Ashly Briceño Member ID:[id number] Relation to Subscriber:Self Name:Ashly Briceño Subscriber ID:[id number] Payer ID:[id number] Group ID:Not on file Type:Medicare Address: [facility] [place] PART A [facility] [place] [address] [place] [address] [facility] Advance Directives For more information, please contact: [phone] * Full Code (Latest Code Status on File) Date Activated Date Inactivated Comments 01/30/2023 9:13 AM No automated chest compression devices for VAD Patients Care Teams Pinking Machine Operator Relationship Specialty Start Date End Date David Vazquez [address] [place] [address] PCP - General 01/24/23
[2025-02-25 09:18] LABS: Hematocrit 22.1 % (37.0-47.0); Hemoglobin 7.3 g/dL (12.2-16.2); Immature Granulocytes % 0 %; Mean Corpuscular HGB Conc 33.0 g/dL (31.8-35.4); Mean Corpuscular Hemoglobin 28.6 pg (27.0-31.2); Mean Corpuscular Volume 86.7 fl (81-99); Nucleated Red Blood Cells % 0 %; Red Blood Count 2.55 M/mm3 (4.20-5.40); Red Cell Distribution Width-SD 51.1 fL
[2025-02-25 09:24] LABS: Platelet Count 16 K/mm3 (142-424); White Blood Count 0.6 K/mm3 (4.8-10.8)
[2025-02-25 09:28] LABS: Alanine Aminotransferase 14 U/L (12-78); Albumin Level 3.3 g/dl (3.5-5.0); Albumin/Globulin Ratio 1.1 (1.1-1.8); Alkaline Phosphatase 50 U/L (38-126); Anion Gap 11.7 mEq/L (5-15); Aspartate Amino Transferase 22 U/L (14-36); Bilirubin,Total 0.8 mg/dl (0.2-1.3); Blood Urea Nitrogen 18 mg/dl (7-17); Calcium 9.3 mg/dl (8.4-10.2); Carbon Dioxide 21 mmol/L (22.0-30.0); Chloride 107 mmol/L (98-107); Creatinine Clearance Estimated 42 mL/min (50-200); Creatinine,Serum 0.80 mg/dl (0.52-1.04); Estimated Glomerular Filt Rate 70 ml/min (>60); GFR (African American) 85 ML/MIN (>60); Globulin 2.9 g/dL (1.3-3.2); Glucose 170 mg/dl (74-100); Potassium 3.7 mmoL/L (3.5-5.1); Sodium 136 mmol/L (136-145); Total Protein,Serum 6.2 g/dl (6.3-8.2)
[2025-02-25] MEDS: 0.9 % SODIUM CHLORIDE 250 ML 25 ML IV ×2 (09:51→11:23)
[2025-02-25] MEDS: ACETAMINOPHEN 325MG TAB 650 MG PO (09:51)
[2025-02-25 10:19] LABS: Total Cells Counted 50
[2025-02-25 10:22] LABS: Anisocytosis 1+; Poikilocytosis 1+; Spherocytes 1+
[2025-02-25 10:24] LABS: Hypochromasia 1+
[2025-02-25 10:25] LABS: Tear Drop Cells 1+
== END 2025-02-25 23:59 | disposition home or self-care (01) ==
LOC: INF 08:59
PROVIDERS: PCP Family Medicine; Visit Provider Internal Medicine Medical Oncology
DX: C92.00 Acute myeloblastic leukemia, not having achieved remission (principal)
CPT/HCPCS: 36430; 80053; 85007; 85025; 85027; 86900; 86901; J1642; J7050; P9016; P9034

== ENCOUNTER 2025-02-27 08:58 | Outpatient (CLI) | payer MEDICARE, BC, SELFPAY ==
--- OUTSIDE RECORDS SUMMARY | 2025-01-12 08:30 | XMS_ITS | Encounter Summary ---
Author Organization Healthcare Address [address] [place] [address] Care Team Providers Care Meat Molder Name Role Phone Jevon Vazquez MD Primary Care Provider [phone] Reason for Visit * Reason Comments Labs Encounter Details Date Type Department Care Team ([facility] Contact Info) Description 01/12/2025 9:30 AM EDT Clinical Support [facility] CC Hematology/BMT and Cellular Therapy Program [address] [phone] Social History Tobacco Use Types Packs/Day Years [...] Upcoming Encounters Date Type Department Care Team ([facility] Contact Info) Description 03/03/2025 1:00 PM EST Clinical Support [facility] Hematology/BMT and Cellular Therapy Program [address] [phone] 03/03/2025 1:30 PM EST Office Visit [facility] Hematology/BMT and Cellular Therapy Program [address] [phone] Zonia Hoffman, HEATING AND VENTILATING DRAFTER 800 [facility] [address] [place] [phone] 04/02/2025 10:30 AM EST Clinical Support [facility] Hematology/BMT and Cellular Therapy Program [address] [phone] 04/02/2025 11:00 AM EST Office Visit PAV Hematology/BMT and Cellular Therapy Program 750 [facility], [address] [place] [phone] Zonia Hoffman, HEATING AND VENTILATING DRAFTER 800 [facility] [address] [place] [phone] documented as of this encounter Visit Diagnoses Not on filedocumented in this encounter Additional Health Concerns Assessment Noted Time A fall risk assessment has been complete d for the patient 09/30/2024 9:33 AM EDT A Body Mass Index follow-up plan has been documented for the patient 05/28/2024 1:52 PM EST documented as of this encounter Care Teams Meat Molder Relationship Specialty Start Date End Date Jevon Vazquez MD [address] [place] [address] #1 [address] [place] [address] PCP - General 03/23/22 documented as of this encounter
--- OUTSIDE RECORDS SUMMARY | 2025-01-12 09:00 | XMS_ITS | Encounter Summary ---
Author Organization [facility] Address [address] [place] [address] Care Team Providers Care Schedule Planning Manager Name Role Phone Jevon Vazquez MD Primary Care Provider [phone] Reason for Visit * Genetic Testing (Routine) - Authorized Specialty Diagnoses / Procedures Referred By Rebecca barron Referred To Contact Lab Diagnoses Myelodysplastic syndrome (CMS/HCC) Procedures Leukemia/Lymphoma - Immunophenotyping by Flow Cytometry New Mckinney MD [address] [facility] Cancer [address] [phone] Phone: tel: fax: Referral ID Status Reason Start Date Expiration Date V isits Requested Visits Authorized [id number] Authorized 12/29/2024 06/30/2026 1 1 Encounter Details Date Type Department Care Team (Latest Contact Info) Description 01/12/2025 10:00 AM EDT Procedure Visit [facility] Hematology/BMT and Cellular Therapy Program [address] [phone] Rebecca Barrientos PA 800 [facility] Cancer [address] [phone] Myelodysplastic syndrome (CMS/HCC); Acute myeloid [...] by: Rebecca Barrientos PA Authorized by: Rebecca Barrietnos PA Patient Name: Ashly Hernández Date of [...] position. There were no complications. DANIELA Davis [facility] HEMATOLOGY/BMT AND CELLULAR THERAPY PROGRAM [address] [facility] [phone] / documented in this encounter Plan of Treatment Upcoming Encounters Date Type Department Care Team ([facility] Contact Info) Description 03/03/2025 1:00 PM EST Clinical Support [facility] Hematology/BMT and Cellular Therapy Program [address] [place] [phone] 03/03/2025 1:30 PM EST Office Visit [facility] Hematology/BMT and Cellular Therapy Program [address] [phone] Zonia Hoffman APRN 800 [facility] [address] [place] [phone] 04/02/2025 10:30 AM EST Clinical Support [facility] Hematology/BMT and Cellular Therapy Program [address] [place] [phone] 04/02/2025 11:00 AM EST Office Visit [facility] Hematology/BMT and Cellular Therapy Program [address] [phone] Zonia Hoffman APRN [address] [facility] [address] [place] [phone] documented as of this encounter Procedures Procedure [...] Type Bone Marrow 01/20/2025 12:21 PM EDT [facility] Clinical Indication Myelodysplastic Syndrome 01/20/2025 12:21 PM EDT [facility] Specimen Adequacy Adequate 025 12:21 PM EDT [facility] Chromosome Analysis Result Giemsa-banded metaphase cells from unstimulated bone marrow cultures showed the following chromosome pattern: 43~44,X,-X,add(5)( q23),del(5)(q13q33 ),todd(7)ins?(7)(q1 1.2q11.2)t(7;12)(q 11.2;q13),-12,todd( 17)add(17)(p13.2)a dd(17)(q21)[16]/88 ,XX,idemx2[cp3]/46 ,XY[1] 01/20/2025 12:21 PM EDT [facility] Interpretation Abnormal female chromosome analysis. 95% of metaphase cells analyzed showed clonal abnormalities consistent with this patient's previous abnormal results (see [facility]-[id number]). Clinical correlation is recommended. Note: Per [employer] ([employer]) requirement an additional karyotype was performed and charged due to the presence of clonal abnormalities. # cells counted = 20 # cells analyzed = 20 # cells karyotyped = 3 Band resolution: 400-450 01/20/2025 12:21 PM EDT [facility] Pathologist Signature Reviewed by: Corey Tejada 01/20/2025 12:21 PM EDT [facility] Bone Marrow Non-blood Collection / Unknown 01/12/2025 9:55 AM EDT 01/12/2025 12:37 PM EDT us New Mckinney MD LAB CYTOGENETICS ORDERABLES F inal Result [facility] [address] [place] [address] * Leukemia/Lymphoma - Immunophenotyping by Flow Cytometry (01/12/2025 9:55 AM EDT) Clinical Indication MDS 01/12/2025 4:19 PM EDT [facility] Flow Cytometry Interpretation APPROXIMATELY 27% MYELOID BLASTS EXPRESSING CD34, CD117, VARIABLE CD33, PARTIAL CD56, VARIABLE HLA-DR, PARTIAL DIM CD7, CD38 AND DIM CD45, SEE COMMENT, BBONE MARROW ASPIRATE. 01/12/2025 4:19 PM EDT [facility] Comments Specimen viability is [...] surface light chains 01/12/2025 4:19 PM EDT [facility] Disclaimer This test was developed and its performance characteristics determined by the Immuno-Molecular Pathology Laboratory at the [facility]. It has not been cleared [...] clinical laboratory testing. 01/12/2025 4:19 PM EDT [facility] Pathologist Signature Reviewed by: Asad Hartman MD 01/12/2025 4:19 PM EDT [facility] MRD Indicated Test Not Indicated 4:19 PM EDT [facility] Bone Marrow Specimen from bone marrow obtained by aspiration / Unknown Non-blood Collection / Unknown 01/12/2025 9:55 AM EDT 01/12/2025 1:48 PM EDT us New Mckinney MD LAB FLOW CYTOMETRY ORDERABLES Final Result [facility] [address] [place] [address] * Bone marrow exam (01/12/2025 9:55 AM EDT) Case Report Bone Marrow Case: [id number] Authorizing Provider: New Mckinney MD Collected: 01/12/2025 0955 Ordering Location: [facility] Hematology/BMT and Received: 01/12/2025 [facility] Cellular Therapy Program Pathologist: Asad Hartman MD Specimens: A) - Bone Marrow Aspirate, left B) - Bone Marrow Biopsy, left C) - Peripheral Blood for Bone Marrow 5:16 PM EDT [facility] Cytogenetics Report, Addendum Chromosome Analysis Result: Giemsa-banded metaphase cells from unstimulated bone marrow cultures showed the following chromosome pattern: 43~44,X,-X,add(5)( q23),del(5)(q13q33 ),todd(7)ins?(7)(q1 1.2q11.2)t(7;12)(q 11.2;q13),-12,todd( 17)add(17)(p13.2)a dd(17)(q21)[16]/88 ,XX,idemx2[cp3]/46 ,XY[1] Interpretation: Abnormal female chromosome analysis. 95% of metaphase cells analyzed showed clonal abnormalities consistent with this patient's previous abnormal results (see [facility]-[id number]). 5:16 PM EDT [facility] Addendum electronically signed by Asad Hartman MD on 01/23/2025 at 1716 EDT Final Diagnosis PERIPHERAL BLOOD AND BONE MARROW, LEFT POSTERIOR ILIAC CREST, (PERIPHERAL SMEAR, ASPIRATE SMEAR, AND CORE BIOPSY): - HYPOCELLULAR BONE MARROW WITH MARKEDLY DECREASED MEGAKARYOCYTES, DECREASED MATURING GRANULOPOIESIS, APPROXIMATELY 7-10% VARIABLY DISTRIBUTED BLASTS AND MORE THAN 50% RING SIDEROBLASTS, SEE COMMENT. 5:16 PM EDT [facility] at 0941 EDT Comment The discrepancy between blasts percentage by morphologic assessment and flow cytometric analysis is due to erythroid precursors that constitute majority of bone marrow cellularity and are removed by flow cytometry. 5:16 PM EDT [facility] Clinical Information MDS 01/14 5:16 PM T [facility] CBC and Differential [...] target cells. Platelets are decreased. 5:16 PM T [facility] Bone Marrow Differential BONE MARROW DIFFERENTIAL: 300 cells Normal Patient Neutrophils 15-50 12 Metamyelocytes 4-19 0 Myelocytes 1-18 1 Promyelocytes 1-8 0 Blasts 0-2 7 Monocytes 0-5 7 Erythroid 16-38 61 Lymphocytes 3-24 7 Eosinophils 0-6 3 Basophils 0-2 0 Plasma cells 0-4 2 Other 5:16 PM T [facility] Aspirate Smear The bone [...] than 50% of erythroid precursors. 5:16 PM EDT [facility] Core Biopsy CELLULARITY: Variably [...] BONE: Bony trabeculae are normal. 5:16 PM EDT [facility] Special and Immunohistochemical Stains Immunohistochemica l stains [...] the [facility], [address] [place] [address]. All tests reported here, except those addressing [...] negativity on decalcified specimens. 5:16 PM T [facility] Flow Cytometry Interpretation Flow cytometric analysis demonstrates approximately 27% population of myeloid blasts in this patient with history of myelodysplastic syndrome; expressing CD34, CD117, variable CD33, partial CD56, variable HLA-DR, partial dim CD7, CD38 and dim CD45 ([id number]). 5:16 PM T [facility] Gross Description B. LEFT A single specimen is received in formalin labeled bone marrow biopsy left posterior iliac crest and consists of 1 piece(s) of red/white tissue measuring 0.9 cm in length 0.2 cm in diameter. The specimen is submitted in to Histology for decalcification and routine processing. Cold Time: <1m 5:16 PM EDT [facility] Note: A resident was involved in the service. I attest I examined the relevant preparations for the specimens and confirmed the diagnosis or interpretation. 5:16 PM EDT [facility] Bone Marrow Peripheral blood specimen / Unknown Non-blood Collection / Unknown 01/12/2025 9:55 AM EDT 01/12/2025 11:43 AM EDT Bone marrow specimen (specimen) Specimen from bone marrow obtained by biopsy / Unknown 01/12/2025 9:55 AM EDT 01/12/2025 11:43 AM EDT Bone marrow specimen (specimen) Peripheral blood specimen / Unknown 01/12/2025 9:55 AM EDT 01/12/2025 11:43 AM EDT us New Mckinney MD LAB PATHOLOGY ORDERABLES Edit ed Result - Final [facility] [address] [place] [address] * (ABNORMAL) CBC and Differential (01/12/2025 9:15 AM EDT) WBC Count 1.31(L) 3.70 - 10.30 10*3/uL LAB HEMATOLOGY METHOD 01/12/2025 9:58 AM EDT [facility] RBC Count 2.70(L) 3.90 - 5.20 10*6/uL LAB HEMATOLOGY METHOD 01/12/2025 9:58 AM EDT [facility] HGB 8.4(L) 11.2 - 15.7 g/dL LAB HEMATOLOGY METHOD 01/12/2025 9:58 AM EDT [facility] HCT 25.0(L) 34.0 - 45.0 % LAB HEMATOLOGY METHOD 01/12/2025 9:58 AM EDT [facility] Platelet Count 31(L) 155 - 369 10*3/uL LAB HEMATOLOGY METHOD 01/12/2025 9:58 AM EDT [facility] MCV 93 79 - 98 fL LAB HEMATOLOGY METHOD 01/12/2025 9:58 AM EDT [facility] MCH 31.1 26.0 - 32.0 pg LAB HEMATOLOGY METHOD 01/12/2025 9:58 AM EDT [facility] MCHC 33.6 30.7 - 35.5 g/dL LAB HEMATOLOGY METHOD 01/12/2025 9:58 AM EDT [facility] RDW 20.0(H) 11.5 - 14.5 % LAB HEMATOLOGY METHOD 01/12/2025 9:58 AM EDT [facility] MPV 8.8 8.8 - 12.5 fL LAB HEMATOLOGY METHOD 01/12/2025 9:58 AM EDT [facility] nRBC 3.1(H) <=0.0 per 100 WBCs LAB HEMATOLOGY METHOD 01/12/2025 9:58 AM EDT [facility] Differential Type Automated LAB HEMATOLOGY METHOD 01/12/2025 9:58 AM EDT [facility] Neutrophils % 19 % LAB HEMATOLOGY METHOD 01/12/2025 9:58 AM EDT [facility] Lymphocytes % 64 % LAB HEMATOLOGY METHOD 01/12/2025 9:58 AM EDT [facility] Monocytes % 15 % LAB HEMATOLOGY METHOD 01/12/2025 9:58 AM EDT [facility] Eosinophils % 2 % LAB HEMATOLOGY METHOD 01/12/2025 9:58 AM EDT [facility] Basophils % 0 % LAB HEMATOLOGY METHOD 01/12/2025 9:58 AM EDT [facility] Immature Granulocytes % 0 % LAB HEMATOLOGY METHOD 01/12/2025 9:58 AM EDT [facility] Neutrophils Absolute 0.25(LL) 1.60 - 6.10 10*3/uL LAB HEMATOLOGY METHOD 01/12/2025 9:58 AM EDT [facility] Lymphocytes Absolute 0.84(L) 1.20 - 3.90 10*3/uL LAB HEMATOLOGY METHOD 01/12/2025 9:58 AM EDT [facility] Monocytes Absolute 0.20(L) 0.30 - 0.90 10*3/uL LAB HEMATOLOGY METHOD 01/12/2025 9:58 AM EDT [facility] Eosinophils Absolute 0.02 0.00 - 0.50 10*3/uL LAB HEMATOLOGY METHOD 01/12/2025 9:58 AM EDT [facility] Basophils Absolute 0.00 0.00 - 0.10 10*3/uL LAB HEMATOLOGY METHOD 01/12/2025 9:58 AM EDT [facility] Immature Granulocytes Absolute 0.00 0.00 - 0.06 10*3/uL LAB HEMATOLOGY METHOD 01/12/2025 9:58 AM EDT [facility] Blood Blood sample taken from central line / Unknown (Port) Long-term Catheter / Unknown 01/12/2025 9:15 AM EDT 01/12/2025 9:31 AM EDT [facility] - 01/12/2025 9:58 AM EDT Therapeutic decision making should be based on absolute values, rather than percentages. us New Mckinney MD LAB BLOOD ORDERABLES Final Re sult [facility] [address] [place] [address] * (ABNORMAL) Comprehensive Metabolic Panel, Plasma (01/12/2025 9:15 AM EDT) Glucose, Plasma 121(H) 74 - 99 mg/dL 01/12/2025 10:02 AM EDT [facility] BUN, Plasma 24(H) 8 - 23 mg/dL 01/12/2025 10:02 AM EDT [facility] Creatinine, Plasma 1.19(H) 0.60 - 1.10 mg/dL 01/12/2025 10:02 AM EDT [facility] BUN/Creatinine Ratio 20 01/12/2025 10:02 AM EDT [facility] Sodium, Plasma 138 136 - 145 mmol/L 01/12/2025 10:02 AM EDT [facility] Potassium, Plasma 3.9 3.6 - 4.9 mmol/L 01/12/2025 10:02 AM EDT [facility] Chloride, Plasma 105 97 - 107 mmol/L 01/12/2025 10:02 AM EDT [facility] CO2, Plasma 21(L) 22 - 29 mmol/L 01/12/2025 10:02 AM EDT [facility] Anion Gap 12 6 - 16 mmol/L 01/12/2025 10:02 AM EDT [facility] Total Calcium, Plasma 9.7 8.9 - 10.2 mg/dL 01/12/2025 10:02 AM EDT [facility] Total Protein 6.1(L) 6.3 - 7.9 g/dL 01/12/2025 10:02 AM EDT [facility] Albumin, Plasma 3.9 3.5 - 5.2 g/dL 01/12/2025 10:02 AM EDT [facility] AST, Plasma 28 10 - 35 U/L 01/12/2025 10:02 AM EDT [facility] ALT, Plasma 12 10 - 35 U/L 01/12/2025 10:02 AM EDT [facility] Alkaline Phosphatase, Plasma 43(L) 46 - 142 U/L 01/12/2025 10:02 AM EDT [facility] Total Bilirubin, Plasma 0.5 0.2 - 1.1 mg/dL 01/12/2025 10:02 AM EDT [facility] eGFRcr 48.1 mL/min/1.7 3m*2 01/12/2025 10:02 AM EDT [facility] Comment:Reported eGFRcr in m L/min/1.73m2 is based the CKD-EPI 2020 equation that does not use a race coefficient. Blood Blood sample taken from central line / Unknown (Port) Long-term Catheter / Unknown 01/12/2025 9:15 AM EDT 01/12/2025 9:33 AM EDT us New Mckinney MD LAB BLOOD ORDERABLES Final Re sult [facility] [address] [place] [address] documented in this encounter Visit Diagnoses Diagnosis [...] documented as of this encounter Care Teams Schedule Planning Manager Relationship Specialty Start Date End Date Jevon Vazquez MD [address] [place] [address] #1 #1 JOSEP Victoira [id number] PCP - General 03/23/22 documented as of this encounter
--- OUTSIDE RECORDS SUMMARY | 2025-01-27 14:00 | XMS_ITS | Encounter Summary ---
Author Organization Healthcare Address [address] [place] [address] Care Team Providers Care Boiler/Chiller Operator Name Role Phone Jevon Vazquez MD Primary Care Provider [phone] Reason for Visit * Reason Comments Labs Port Flush Encounter Details Date Type Department Care Team ([facility] Contact Info) Description 01/27/2025 3:00 PM EDT Clinical Support [facility] Hematology/BMT and Cellular Therapy Program [address] [place] [phone] Oscar Cortez, RN Social History Tobacco Use [...] [facility] Contact Info) Description 03/03/2025 1:00 PM EST Clinical Support [facility]ology[facility]BMT [facility] Cellular Therapy [facility] [address] [phone] 03/03/2025 1:30 PM EST Office Visit [facility]ology/BMT [facility] Cellular Therapy Program [address] [phone] Zonia Hoffman, DRY CLEANER 800 [facility] [address] [place] [phone] 04/02/2025 10:30 AM EST Clinical Support [facility] Hematology/BMT and Cellular Therapy Program [address] [place] [address] 04/02/2025 11:00 AM EST Office Visit [facility] Hematology[facility] Cellular Therapy Program [address] [phone] Zonia Hoffman, DRY CLEANER 800 [facility] [address] [place] [phone] documented as of this encounter Visit Diagnoses Not on filedocumented in this encounter Additional Health Concerns Assessment Noted Time A fall risk assessment has been complete d for the patient 01/27/2025 3:25 PM EDT A Body Mass Index follow-up plan has been documented for the patient 05/28/2024 1:52 PM EST documented as of this encounter Care Teams Boiler/Chiller Operator Relationship Specialty Start Date End Date Jevon Vazquez MD [address] [place] [address] #1 #1 [place] [phone] PCP - General 03/23/22 documented as of this encounter
--- OUTSIDE RECORDS SUMMARY | 2025-01-27 14:30 | XMS_ITS | Encounter Summary ---
Author Organization [facility] Address [address] 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) New Mckinney MD [address] [address] Phone: tel: fax: [place] [address] Phone: tel: Referral ID Status Reason Start Date Expiration Date Visits Requested Visits Authorized [id number] Authorized Specialty Services Required 5 07/29/2026 1 1 * Consultation (Urgent) - Authorized Specialty Diagnoses / Procedures Referred By Contac t Referred To Contact Medical Oncology Diagnoses 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) New Mckinney MD [address] [place] [phone] Phone: tel: fax: [facility] [address] [place] [address] Phone: tel: Referral ID Status Reason Start Date Expiration Date Visits Requested Visits Authorized [id number] Authorized Specialty Services Required 5 07/29/2026 1 1 Encounter Details Date Type Department Care Team (Latest Contact Info) Description 01/27/2025 3:30 PM EDT Office Visit [facility] Hematology/BMT and Cellular Therapy Program [address] [place] [address] New Mckinney MD 800 [facility] [address] [place] [address] Encounter for antineoplastic immunotherapy (Primary Dx); [...] k/??L. 12/2023- seen by Dr. Manzano in [facility] for evaluation of anemia and lymphocytosis. 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 Next generation sequencing: Abnormal: TP53 (c.814G>A; p.Vct132Imh) frequency 45%, DMNT3A (c.1522delC; p.[id number]) frequency 48%, RUNX1 (c.336_338delGCC; p.Ehe298htj) frequency 35% Azacitidine + Venetoclax Cycle 1: [...] 5x/week monthly. - Will send referrals to [facility] and [facility] for clinical trial evaluations. 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 Check CBC x 3 times/week at [facility] Labs reviewed today, Hgb 7.7 , [...] Gerardo Pandey D.O. Hematology and Oncology Fellow [facility] Patient care and management discussed with attending, [...] understand that therapeutic options are limited, and okeux-sa-[id number] discussions remain essential moving forward. We will start oral decitabine and refer to [facility] and [facility] for clinical trial evaluations * Progress Notes [...] Cycle 2: 03/22/24 Assessment/Plan: Rx sent to [facility]. Refills due 02/2025. Patient will return [...] Upcoming Encounters Date Type Department Care Team ([facility] st Contact Info) Description 03/03/2025 1:00 PM EST Clinical Support [facility] Hematology/BMT and Cellular Therapy Program [address] [place] [phone] 03/03/2025 1:30 PM EST Office Visit [facility] Hematology/BMT and Cellular Therapy Program [address] [phone] Zonia Hoffman, MANAGER PHOTO 800 [facility] [address] [address] 04/02/2025 10:30 AM EST Clinical Support [facility] Hematology/BMT and Cellular Therapy Program [address] [place] [phone] 04/02/2025 11:00 AM EST Office Visit [facility] Hematology/BMT and Cellular Therapy Program [address] [place] [phone] Zonia Hoffman, MANAGER PHOTO 800 [facility] [address] [address] Scheduled Referrals Name Type Priority Associated Diagnoses [...] - 99 mg/dL 01/27/2025 4:26 PM EDT [facility] BUN, Plasma 22 8 - 23 mg/dL 01/27/2025 4:26 PM EDT [facility] Creatinine, Plasma 1.10 0.60 - 1.10 mg/dL 01/27/2025 4:26 PM EDT [facility] BUN/Creatinine Ratio 20 01/27/2025 4:26 PM EDT [facility] Sodium, Plasma 138 136 - 145 mmol/L 01/27/2025 4:26 PM EDT [facility] Potassium, Plasma 4.6 3.6 - 4.9 mmol/L 01/27/2025 4:26 PM EDT [facility] Chloride, Plasma 106 97 - 107 mmol/L 01/27/2025 4:26 PM EDT [facility] CO2, Plasma 22 22 - 29 mmol/L 01/27/2025 4:26 PM EDT [facility] Anion Gap 10 6 - 16 mmol/L 01/27/2025 4:26 PM EDT [facility] Total Calcium, Plasma 9.6 8.9 - 10.2 mg/dL 01/27/2025 4:26 PM EDT [facility] Total Protein 6.2(L) 6.3 - 7.9 g/dL 01/27/2025 4:26 PM EDT [facility] Albumin, Plasma 3.9 3.5 - 5.2 g/dL 01/27/2025 4:26 PM EDT [facility] AST, Plasma 33 10 - 35 U/L 01/27/2025 4:26 PM EDT [facility] ALT, Plasma 11 10 - 35 U/L 01/27/2025 4:26 PM EDT [facility] Alkaline Phosphatase, Plasma 43(L) 46 - 142 U/L 01/27/2025 4:26 PM EDT [facility] Total Bilirubin, Plasma 0.5 0.2 - 1.1 mg/dL 01/27/2025 4:26 PM EDT [facility] eGFRcr 52.8 mL/min/1.7 3m*2 01/27/2025 4:26 PM EDT [facility] Comment:Reported eGFRcr in m L/min/1.73m2 is based the CKD-EPI 2020 equation that does not use a race coefficient. Blood Blood sample taken from central line / Unknown (Port) Long-term Catheter / Unknown 01/27/2025 3:00 PM EDT 01/27/2025 3:54 PM EDT us New Mckinney MD LAB BLOOD ORDERABLES Final Re sult [facility] [address] [place] [address] * (ABNORMAL) CBC and Differential (01/27/2025 3:00 PM EDT) WBC Count 1.22(L) 3.70 - 10.30 10*3/uL LAB HEMATOLOGY METHOD 01/27/2025 3:21 PM EDT [facility] RBC Count 2.90(L) 3.90 - 5.20 10*6/uL LAB HEMATOLOGY METHOD 01/27/2025 3:21 PM EDT [facility] HGB 8.9(L) 11.2 - 15.7 g/dL LAB HEMATOLOGY METHOD 01/27/2025 3:21 PM EDT [facility] HCT 26.3(L) 34.0 - 45.0 % LAB HEMATOLOGY METHOD 01/27/2025 3:21 PM EDT [facility] Platelet Count 23(L) 155 - 369 10*3/uL LAB HEMATOLOGY METHOD 01/27/2025 3:21 PM EDT [facility] MCV 91 79 - 98 fL LAB HEMATOLOGY METHOD 01/27/2025 3:21 PM EDT [facility] MCH 30.7 26.0 - 32.0 pg LAB HEMATOLOGY METHOD 01/27/2025 3:21 PM EDT [facility] MCHC 33.8 30.7 - 35.5 g/dL LAB HEMATOLOGY METHOD 01/27/2025 3:21 PM EDT [facility] RDW 17.7(H) 11.5 - 14.5 % LAB HEMATOLOGY METHOD 01/27/2025 3:21 PM EDT [facility] MPV 9.0 8.8 - 12.5 fL LAB HEMATOLOGY METHOD 01/27/2025 3:21 PM EDT [facility] nRBC 2.5(H) <=0.0 per 100 WBCs LAB HEMATOLOGY METHOD 01/27/2025 3:21 PM EDT [facility] Differential Type Automated LAB HEMATOLOGY METHOD 01/27/2025 3:21 PM EDT [facility] Neutrophils % 9 % LAB HEMATOLOGY METHOD 01/27/2025 3:21 PM EDT [facility] Lymphocytes % 78 % LAB HEMATOLOGY METHOD 01/27/2025 3:21 PM EDT [facility] Monocytes % 12 % LAB HEMATOLOGY METHOD 01/27/2025 3:21 PM EDT [facility] Eosinophils % 1 % LAB HEMATOLOGY METHOD 01/27/2025 3:21 PM EDT [facility] Basophils % 0 % LAB HEMATOLOGY METHOD 01/27/2025 3:21 PM EDT [facility] Immature Granulocytes % 0 % LAB HEMATOLOGY METHOD 01/27/2025 3:21 PM EDT [facility] Neutrophils Absolute 0.11(LL) 1.60 - 6.10 10*3/uL LAB HEMATOLOGY METHOD 01/27/2025 3:21 PM EDT [facility] Lymphocytes Absolute 0.95(L) 1.20 - 3.90 10*3/uL LAB HEMATOLOGY METHOD 01/27/2025 3:21 PM EDT [facility] Monocytes Absolute 0.15(L) 0.30 - 0.90 10*3/uL LAB HEMATOLOGY METHOD 01/27/2025 3:21 PM EDT [facility] Eosinophils Absolute 0.01 0.00 - 0.50 10*3/uL LAB HEMATOLOGY METHOD 01/27/2025 3:21 PM EDT [facility] Basophils Absolute 0.00 0.00 - 0.10 10*3/uL LAB HEMATOLOGY METHOD 01/27/2025 3:21 PM EDT [facility] Immature Granulocytes Absolute 0.00 0.00 [...] ORDERABLES Final Re sult [facility] [address] [place] [address] documented in this encounter Visit Diagnoses Diagnosis [...] as of this encounter Care Teams Coordinator Mining Products Relationship Specialty Start Date End Date Jevon Vazquez MD [address] [place] [address] #1 [address] [place] [id number] PCP - General 03/23/22 documented as of this encounter
--- OUTSIDE RECORDS SUMMARY | 2025-02-27 09:01 | XMS_ITS | Encounter Summary ---
Author Organization [facility] Address [address] [place] [address] Care Team Providers Care Brake Press Operator Name Role Phone Jevon Vazquez MD Primary Care Provider [phone] Reason for Visit * Reason Comments Med Refill Encounter Details Date Type Department Care Team ([facility] Contact Info) Description 01/30/2024 Refill [facility] Hematology/BMT and Cellular Therapy Program [address] [phone] New Mckinney MD 800 [facility] [address] [place] [phone] Social History Tobacco Use Types Packs/Day Years [...] Upcoming Encounters Date Type Department Care Team ([facility] Contact Info) Description 03/03/2025 1:00 PM EST Clinical Support [facility] Hematology/BMT and Cellular Therapy Program [address] [phone] 03/03/2025 1:30 PM EST Office Visit [facility] Hematology/BMT and Cellular Therapy Program [address] [phone] Zonia Hoffman, LOCAL TANKER TRUCK DRIVER 800 [facility] [address] [place] [phone] 04/02/2025 10:30 AM EST Clinical Support [facility] Hematology/BMT and Cellular Therapy Program [address] [place] [address] [place] [address] 04/02/2025 11:00 AM EST Office Visit [facility] Hematology/BMT and Cellular Therapy Program [address] [place] [address] [place] [phone] Zonia Hoffman, LOCAL TANKER TRUCK DRIVER 800 [facility] [address] [place] [phone] documented as of this encounter Visit Diagnoses Not on filedocumented in this encounter Additional Health Concerns Assessment Noted Time A fall risk assessment has been complete d for the patient 01/11/2024 9:16 AM EDT A Body Mass Index follow-up plan has been documented for the patient 01/21/2024 6:16 AM EDT documented as of this encounter Care Teams Brake Press Operator Relationship Specialty Start Date End Date Jevon Vazquez MD [address] [place] [address] #1 #1 [place] [address] PCP - General 03/23/22 documented as of this encounter
--- OUTSIDE RECORDS SUMMARY | 2025-02-27 09:01 | XMS_ITS | Encounter Summary ---
Author Organization [facility] Address [address] [place] [address] Care Team Providers Care Cutting Table Operator First Name Role Phone Jevon Vazquez MD Primary Care Provider [phone] Reason for Visit * Reason Comments Med Refill Encounter Details Date Type Department [facility] ([facility] Contact Info) Description 02/02/2025 Refill [facility] Hematology/BMT and Cellular Therapy Program [address] [phone] Zonia Hoffman, ENDOSCOPY TECHNICAN 800 [facility] [address] [place] [phone] Social History Tobacco Use Types Packs/Day Years [...] Team ([facility] Contact Info) Description 03/03/2025 1:00 PM EST Clinical Support [facility] Hematology/BMT and Cellular Therapy Program [address] [phone] 03/03/2025 1:30 PM EST Office Visit [facility] CC Hematology/BMT and Cellular Therapy Program [address] [phone] Zonia Hoffman, ENDOSCOPY TECHNICAN 800 [facility] [address] [place] [phone] 04/02/2025 10:30 AM EST Clinical Support [facility] CC Hematology/BMT and Cellular Therapy Program [address] [place] [address] 04/02/2025 11:00 AM EST Office Visit [facility] CC Hematology/BMT and Cellular Therapy Program [address] [place] [address] Zonia Hoffman, ENDOSCOPY TECHNICAN 800 [facility] [address] [place] [phone] documented as of this encounter Visit Diagnoses Not on filedocumented in this encounter Additional Health Concerns Assessment Noted Time A fall risk assessment has been complete d for the patient 01/27/2025 3:25 PM EDT A Body Mass Index follow-up plan has been documented for the patient 05/28/2024 1:52 PM EST documented as of this encounter Care Teams Cutting Table Operator First Relationship Specialty Start Date End Date Jevon Vazquez MD [address] [place] [address] #1 #1 [place] [address] PCP - General 03/23/22 documented as of this encounter
--- OUTSIDE RECORDS SUMMARY | 2025-02-27 09:01 | XMS_ITS ---
Author Organization Healthcare Address [address] [place] [address] Care Team Providers Care Woodwinds Teacher Name Role Phone Jevon Vazquez MD Primary Care Provider [phone] Active Problems Problem Noted Date Diagnosed Date [...]
[2025-02-27 09:02] VITALS: BMI 22.1
--- OUTSIDE RECORDS SUMMARY | 2025-02-27 09:02 | XMS_ITS | Encounter Summary ---
Author Organization [facility] Address [address] [place] [address] Care Team Providers Care Forestry Pilot Name Role Phone Jevon Vazquez MD Primary Care Provider [phone] Reason for Visit * Reason Comments Med Refill Encounter Details Date Type Department Care Team ([facility] Contact Info) Description 01/05/2025 Refill [facility] Hematology/BMT and Cellular Therapy Program [address] [phone] Zonia Hoffman, HAULPAK DRIVER 800 [facility] [address] [place] [phone] Social History Tobacco Use Types Packs/Day Years [...] Care Team ([facility] Contact Info) Description 03/03/2025 1:00 PM EST Clinical Support [facility] Hematology/BMT and Cellular Therapy Program [address] [phone] 03/03/2025 1:30 PM EST Office Visit [facility] CC Hematology/BMT and Cellular Therapy Program [address] [phone] Zonia Hoffman, HAULPAK DRIVER 800 [facility] [address] [place] [phone] 04/02/2025 10:30 AM EST Clinical Support [facility] Hematology/BMT and Cellular Therapy Program [address] [place] [address] 04/02/2025 11:00 AM EST Office Visit [facility] CC Hematology/BMT and Cellular Therapy Program [address] [place] [address] Zonia Hoffman, HAULPAK DRIVER 800 [facility] [address] [place] [phone] documented as of this encounter Visit Diagnoses Not on filedocumented in this encounter Additional Health Concerns Assessment Noted Time A fall risk assessment has been complete d for the patient 09/30/2024 9:33 AM EDT A Body Mass Index follow-up plan has been documented for the patient 05/28/2024 1:52 PM EST documented as of this encounter Care Teams Forestry Pilot Relationship Specialty Start Date End Date Jevon Vazquez MD [address] [place] [address] #1 #1 [place] [address] PCP - General 03/23/22 documented as of this encounter
--- OUTSIDE RECORDS SUMMARY | 2025-02-27 09:02 | XMS_ITS | Encounter Summary ---
Author Organization [facility] Address [address] [place] [address] Care Team Providers Care Turret Press Operator Name Role Phone Jevon Vazquez MD Primary Care Provider [phone] Encounter Details Date Type Department Care Team [...] Hematology/BMT and Cellular Therapy Program [address] [phone] 03/03/2025 1:30 PM EST Office Visit [facility] CC Hematology/BMT and Cellular Therapy Program [address] [phone] Zonia Hoffman, UTILITY WORKER FILM PROCESSING 800 [facility] [address] [place] [phone] 04/02/2025 10:30 AM EST Clinical Support [facility] CC Hematology/BMT and Cellular Therapy Program [address] [phone] 04/02/2025 11:00 AM EST Office Visit [facility] CC Hematology/BMT and Cellular Therapy Program 750 [facility] [place] [address] Zonia Hoffman, UTILITY WORKER FILM PROCESSING 800 [facility] [place] [address] [place] [address] documented as of this encounter Visit Diagnoses Not on filedocumented in this encounter Additional Health Concerns Assessment Noted Time A fall risk assessment has been complete d for the patient 09/30/2024 9:33 AM EDT A Body Mass Index follow-up plan has been documented for the patient 05/28/2024 1:52 PM EST documented as of this encounter Care Teams Turret Press Operator Relationship Specialty Start Date End Date Jevon Vazquez MD [address] [place] [address] #1 #1 [place] [address] PCP - General 03/23/22 documented as of this encounter
--- OUTSIDE RECORDS SUMMARY | 2025-02-27 09:02 | XMS_ITS | Encounter Summary ---
Author Organization [facility] Address [address] [place] [address] Care Team Providers Care Sales Agent Business Services Name Role Phone Jevon Vazquez MD Primary Care Provider [phone] Encounter Details Date Type Department Care Team [...] Hematology/BMT and Cellular Therapy Program [address] [phone] 03/03/2025 1:30 PM EST Office Visit [facility] CC Hematology/BMT and Cellular Therapy Program [address] [phone] Zonia Hoffman, TITLE PROCESSOR 800 [facility] [address] [place] [phone] 04/02/2025 10:30 AM EST Clinical Support [facility] CC Hematology/BMT and Cellular Therapy Program [address] [phone] 04/02/2025 11:00 AM EST Office Visit [facility] CC Hematology/BMT and Cellular Therapy Program 750 [facility] [place] [address] Zonia Hoffman, TITLE PROCESSOR 800 [facility] [address] [place] [address] documented as of this encounter Visit Diagnoses Not on filedocumented in this encounter Additional Health Concerns Assessment Noted Time A fall risk assessment has been complete d for the patient 01/27/2025 3:25 PM EDT A Body Mass Index follow-up plan has been documented for the patient 05/28/2024 1:52 PM EST documented as of this encounter Care Teams Sales Agent Business Services Relationship Specialty Start Date End Date Jevon Vazquez MD [address] [place] [address] #1 #1 [place] [address] PCP - General 03/23/22 documented as of this encounter
--- OUTSIDE RECORDS SUMMARY | 2025-02-27 09:02 | XMS_ITS | Encounter Summary ---
Author Organization [facility] Address [address] 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) New Mckinney MD 800 [facility] [address] [address] Phone: tel: fax: Referral ID Status Reason Start Date Expiration Date Visits Re quested Visits Authorized [id number] Closed 1 1 Reason for Visit * Reason Comments Med Refill Encounter Details Date Type Department Care Team ([facility] st Contact Info) Description 02/18/2025 Refill [facility] CC Hematology/BMT and Cellular Therapy Program [address] [place] [address] New Mckinney MD 800 [facility] [address] [phone] Acute myeloid leukemia not having [...] [facility] CC Hematology/BMT and Cellular Therapy Program [address] [place] [address] [place] [address] 03/03/2025 1:30 PM EST Office Visit [facility] Hematology/BMT and Cellular Therapy Program [address] [place] [address] [place] [address] Zonia Hoffman, SURGICAL NURSE PRACTITIONER 800 [facility] [address] [place] [phone] 04/02/2025 10:30 AM EST Clinical Support [facility] Hematology/BMT and Cellular Therapy Program [address] [place] [phone] 04/02/2025 11:00 AM EST Office Visit [facility] Hematology/BMT and Cellular Therapy Program [address] [place] [phone] Zonia Hoffman, SURGICAL NURSE PRACTITIONER 800 [facility] [address] [place] [phone] documented as of this encounter Visit Diagnoses [...] as of this encounter Care Teams Business Liaison Manager Relationship Specialty Start Date End Date Jevon Vazquez MD [address] [place] [address] #1 #1 [place] [address] PCP - General 03/23/22 documented as of this encounter
--- OUTSIDE RECORDS SUMMARY | 2025-02-27 09:02 | XMS_ITS | Clinical Summary ---
Author Organization Address [address] [place] [address] Care Team Providers Care Rig Hand Name Role Phone Jevon Vazquez MD Primary Care Provider [phone] Allergies No known active allergies Medications amLODIPine [...] Encounters Date Type Department Care Team Description 02/27/2025 Refill [facility] Hematology/BMT and Cellular Therapy Program [address] [phone] Zonia Hoffman, PROCESS INSPECTOR 02/26/2025 Travel 02/25/2025 Travel 02/25/2025 Telephone [facility]ology/BMT and Cellular Therapy Program [address] [phone] Astrid South, RN 02/18/2025 Refill [facility] Hematology/BMT and Cellular Therapy Program [address] [phone] Zonia Hoffman, PROCESS INSPECTOR Immunosuppressed status ([facility]/HCC); Acute myeloid leukemia not having achieved remission ([facility]) 02/18/2025 Refill [facility] Hematology/BMT and Cellular Therapy Program [address] [phone] New Mckinney MD Acute myeloid leukemia not having achieved remission ([facility]/HCC) 02/16/2025 Orders Only [facility] Hematology/BMT and Cellular Therapy Program [address] [phone] 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, RN 02/02/2025 Refill [facility] Hematology/BMT and Cellular Therapy Program [address] [phone] Zonia Hoffman, PROCESS INSPECTOR 01/28/2025 Telephone [facility] Hematology/BMT and Cellular Therapy Program [address] [phone] New Mckinney MD 01/27/2025 3:30 PM EDT Office Visit [facility] Hematology/BMT and Cellular Therapy Program [address] [phone] New Mckinney MD Encounter for antineoplastic immunotherapy (Primary Dx); Acute myeloid leukemia not having achieved remission ([facility]/HCC); Immunosuppressed status (CMS/HCC) 01/27/2025 3:00 PM EDT Clinical Support [facility] Hematology/BMT and Cellular Therapy Program [address] [phone] Oscar Cortez RN 01/27/2025 Telephone [facility] [address] [place] [phone] Emil Hardy, PharmD 01/27/2025 Telephone [facility] Hematology/BMT and Cellular Therapy Program [address] [phone] Alyson Vivas RN 01/27/2025 Travel 01/20/2025 Travel 01/16/2025 Telephone [facility] Hematology/BMT and Cellular Therapy Program [address] [place] [phone] Daxa Elliott RN 01/12/2025 10:00 AM EDT Procedure Visit [facility] Hematology/BMT and Cellular Therapy Program [address] [phone] Rebecca Barrientos PA Myelodysplastic syndrome (CMS/HCC); 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) 01/12/2025 9:30 AM EDT Clinical Support [facility] Hematology/BMT and Cellular Therapy Program [address] [place] [phone] 01/12/2025 Travel 01/07/2025 Travel 01/07/2025 Telephone [facility]ology/BMT and Cellular Therapy Program [address] [place] [phone] Sabine Clemons MD 01/07/2025 Refill [facility] Hematology/BMT and Cellular Therapy Program [address] [phone] Zonia Hoffman, PROCESS INSPECTOR 01/05/2025 Travel 01/05/2025 Refill [facility] Hematology/BMT and Cellular Therapy Program 750 [facility], [address] [place] [address] [place] [phone] Zonia Hoffman, PROCESS INSPECTOR 12/29/2024 Orders Only [facility] Hematology/BMT and Cellular Therapy Program 750 [facility], [address] [place] [phone] New Mckinney MD Myelodysplastic syndrome (CMS/HCC) (Primary Dx) 12/29/2024 Telephone [facility] Hematology/BMT and Cellular Therapy Program 750 [facility], [address] [place] [phone] Bibiana Sepulveda, PROCESS INSPECTOR 12/28/2024 Travel 12/26/2024 Travel 12/25/2024 Travel 12/24/2024 Travel 12/23/2024 Travel 12/11/2024 Telephone [facility]ology[facility]BMT [facility] Cellular Therapy Program [address] [phone] New Mckinney MD 12/10/2024 Travel 12/09/2024 Refill [facility]ology/BMT and Cellular Therapy Program [address] [phone] Zonia Hoffman, PROCESS INSPECTOR 11/27/2024 Telephone [facility] Hematology/BMT and Cellular Therapy Program [address] [phone] Zonia Hoffman, PROCESS INSPECTOR from Last 3 Months Immunizations Immunization Administration [...] ([facility] st Contact Info) Description 03/03/2025 1:00 PM EST Clinical Support [facility] Hematology/BMT and Cellular Therapy Program [address] [place] [phone] 03/03/2025 1:30 PM EST Office Visit [facility] Hematology/BMT and Cellular Therapy Program [address] [place] [phone] Zonia Hoffman, PROCESS INSPECTOR 800 [facility] [address] [phone] 04/02/2025 10:30 AM EST Clinical Support [facility] Hematology/BMT and Cellular Therapy Program [address] [place] [phone] 04/02/2025 11:00 AM EST Office Visit [facility] Hematology/BMT and Cellular Therapy Program [address] [place] [phone] Zonia Hoffman, PROCESS INSPECTOR 800 [facility] [address] [phone] Health Maintenance Due Date Last Done Comments [...] 05/16/2023 03/21/2023 [facility]-Bone Density Scan 07/25/2024 07/25/2022 [id number] Vaccine ( - season) 2024 02/18/2021, 07/10/2020, 06/12/2020 [facility]-Influenza [...] this topic Medical Devices Implanted Type Area Composite Bond Worker Device Identifier Shelf Expiration Date Model / Serial / Lot Port [employer] 8fr - [id number] Implanted:Qty: 1 on 01/21/2024 by Ness Sargent MD at [facility] [employer]-[id number] / / Procedures Procedure Name Priority Date/Time [...] 01/27/2025 3:21 PM EDT [facility] Basophils % 0 % [...] 3:00 PM EDT 01/27/2025 3:12 PM EDT [facility] HEALTHCARE LAB - 01/27/2025 3:21 PM EDT Therapeutic decision making should be based on absolute values, rather than percentages. us New Mckinney MD LAB BLOOD ORDERABLES Final Re sult [facility]ALTHCARE LAB [address] [place] [address] * (ABNORMAL) Comprehensive Metabolic Panel, Plasma (01/27/2025 3:00 PM EDT) Only the most recent of2 resultswithin the time period is included. [facility] Glucose, Plasma 89 74 - 99 mg/dL 01/27/2025 4:26 PM EDT [facility] BUN, Plasma 22 8 - 23 mg/dL 01/27/2025 4:26 PM EDT [facility] Creatinine, Plasma 1.10 0.60 - 1.10 mg/dL 01/27/2025 4:26 PM EDT [facility] BUN/Creatinine Ratio 20 01/27/2025 4:26 PM EDT [facility] Sodium, Plasma 138 136 - 145 mmol/L 01/27/2025 4:26 PM EDT [facility] Potassium, Plasma 4.6 3.6 - 4.9 mmol/L 01/27/2025 4:26 PM EDT [facility] Chloride, Plasma 106 97 - 107 mmol/L 01/27/2025 4:26 PM EDT [facility] CO2, Plasma 22 22 - 29 mmol/L 01/27/2025 4:26 PM EDT [facility] Anion Gap 10 6 - 16 mmol/L 01/27/2025 4:26 PM EDT [facility] Total Calcium, Plasma 9.6 8.9 - 10.2 mg/dL 01/27/2025 4:26 PM EDT [facility] Total Protein 6.2(L) 6.3 - 7.9 g/dL 01/27/2025 4:26 PM EDT [facility] Albumin, Plasma 3.9 3.5 - 5.2 g/dL 01/27/2025 4:26 PM EDT [facility] AST, Plasma 33 10 - 35 U/L 01/27/2025 4:26 PM EDT [facility] ALT, Plasma 11 10 - 35 U/L 01/27/2025 4:26 PM EDT [facility] Alkaline Phosphatase, Plasma 43(L) 46 - 142 U/L 01/27/2025 4:26 PM EDT [facility] Total Bilirubin, Plasma 0.5 0.2 - 1.1 mg/dL 01/27/2025 4:26 PM EDT [facility] eGFRcr 52.8 mL/min/1.7 3m*2 01/27/2025 4:26 PM EDT [facility] Comment:Reported eGFRcr in m L/min/1.73m2 is based the CKD-EPI 2020 equation that does not use a race coefficient. Blood Blood sample taken from central line / Unknown (Port) Long-term Catheter / Unknown 01/27/2025 3:00 PM EDT 01/27/2025 3:54 PM EDT New Mckinney MD LAB BLOOD ORDERABLES Final Re sult [facility] [address] [place] [address] * BIOPSY BONE MARROW (01/12/2025 10:00 AM EDT) Narrative Rebecca Barrientos PA - 01/12/2025 10:00 AM EDT Rebecca Barrientos PA 01/12/2025 12:20 PM Biopsy bone marrow Performed by: Rebecca Barrientos PA Authorized by: Rebecca Barrientos PA Rebecca SUAREZ IN CLINIC/BEDSIDE ORDERABLE S Final Result * Chromosome Karyotype, Oncology (01/12/2025 9:55 AM EDT) Specimen Type Bone Marrow 01/20/2025 12:21 PM EDT [facility] Clinical Indication Myelodysplastic Syndrome 01/20/2025 12:21 PM EDT [facility] Specimen Adequacy Adequate 025 12:21 PM EDT [facility] Chromosome Analysis Result Giemsa-banded metaphase cells from unstimulated bone marrow cultures showed the following chromosome pattern: 43~44,X,-X,add(5)( q23),del(5)(q13q33 ),todd(7)ins?(7)(q1 1.2q11.2)t(7;12)(q 11.2;q13),-12,todd( 17)add(17)(p13.2)a dd(17)(q21)[16]/88 ,XX,idemx2[cp3]/46 ,XY[1] 01/20/2025 12:21 PM EDT [facility] Interpretation Abnormal female chromosome analysis. 95% of metaphase cells analyzed showed clonal abnormalities consistent with this patient's previous abnormal results (see [facility]-[id number]). Clinical correlation is recommended. Note: Per [employer] (CAP) requirement an additional karyotype was performed and charged due to the presence of clonal abnormalities. # cells counted = 20 # cells analyzed = 20 # cells karyotyped = 3 Band resolution: 400-450 01/20/2025 12:21 PM EDT [facility] Pathologist Signature Reviewed by: Corey Tejada 01/20/2025 12:21 PM EDT [facility] Bone Marrow Non-blood Collection / Unknown 01/12/2025 9:55 AM EDT 01/12/2025 12:37 PM EDT us New Mckinney MD LAB CYTOGENETICS ORDERABLES F inal Result [facility] [address] [place] [address] * Leukemia/Lymphoma - Immunophenotyping by Flow Cytometry (01/12/2025 9:55 AM EDT) Clinical Indication MDS 01/12/2025 4:19 PM EDT [facility] Flow Cytometry Interpretation APPROXIMATELY 27% MYELOID BLASTS EXPRESSING CD34, CD117, VARIABLE CD33, PARTIAL CD56, VARIABLE HLA-DR, PARTIAL DIM CD7, CD38 AND DIM CD45, SEE COMMENT, BBONE MARROW ASPIRATE. 01/12/2025 4:19 PM EDT [facility] Comments Specimen viability is [...] surface light chains 01/12/2025 4:19 PM EDT [facility] Disclaimer This test was developed and its [...] clinical laboratory testing. 01/12/2025 4:19 PM EDT [facility] Pathologist Signature Reviewed by: Asad Hartman MD 01/12/2025 4:19 PM EDT [facility] MRD Indicated Test Not Indicated 4:19 PM EDT [facility] Bone Marrow Specimen from bone marrow obtained by aspiration / Unknown Non-blood Collection / Unknown 01/12/2025 9:55 AM EDT 01/12/2025 1:48 PM EDT New Mckinney MD LAB FLOW CYTOMETRY ORDERABLES Final Result [facility] [address] [place] [address] * Bone marrow exam (01/12/2025 9:55 AM EDT) Case Report Bone Marrow Case: [id number] Authorizing Provider: New Mckinney MD Collected: 01/12/2025 0955 Ordering Location: [facility] Hematology/BMT and Received: 01/12/2025 1143 Cellular Therapy Program Pathologist: Asad Hartman MD Specimens: A) - Bone Marrow Aspirate, left B) - Bone Marrow Biopsy, left C) - Peripheral Blood for Bone Marrow 5:16 PM EDT [facility] Cytogenetics Report, Addendum Chromosome Analysis Result: Giemsa-banded metaphase cells from unstimulated bone marrow cultures showed the following chromosome pattern: 43~44,X,-X,add(5)( q23),del(5)(q13q33 ),todd(7)ins?(7)(q1 1.2q11.2)t(7;12)(q 11.2;q13),-12,todd( 17)add(17)(p13.2)a dd(17)(q21)[16]/88 ,XX,idemx2[cp3]/46 ,XY[1] Interpretation: Abnormal female chromosome analysis. 95% of metaphase cells analyzed showed clonal abnormalities consistent with this patient's previous abnormal results (see [facility]-[id number]). 5:16 PM EDT [facility] Addendum electronically signed by Asad Hartman MD on 01/23/2025 at 1716 EDT Final Diagnosis PERIPHERAL BLOOD AND BONE MARROW, LEFT POSTERIOR ILIAC CREST, (PERIPHERAL SMEAR, ASPIRATE SMEAR, AND CORE BIOPSY): - HYPOCELLULAR BONE MARROW WITH MARKEDLY DECREASED MEGAKARYOCYTES, DECREASED MATURING GRANULOPOIESIS, APPROXIMATELY 7-10% VARIABLY DISTRIBUTED BLASTS AND MORE THAN 50% RING SIDEROBLASTS, SEE COMMENT. 5:16 PM EDT [facility] at 0941 EDT Comment The discrepancy between blasts percentage by morphologic assessment and flow cytometric analysis is due to erythroid precursors that constitute majority of bone marrow cellularity and are removed by flow cytometry. 5:16 PM EDT [facility] Clinical Information MDS 01/14 5:16 PM EDT [facility] CBC [...] cells. Platelets are decreased. 5:16 PM T [facility] Bone Marrow Differential BONE MARROW DIFFERENTIAL: 300 cells Normal Patient Neutrophils 15-50 12 Metamyelocytes 4-19 0 Myelocytes 1-18 1 Promyelocytes 1-8 0 Blasts 0-2 7 Monocytes 0-5 7 Erythroid 16-38 61 Lymphocytes 3-24 7 Eosinophils 0-6 3 Basophils 0-2 0 Plasma cells 0-4 2 Other 5:16 PM T [facility] Aspirate Smear The bone [...] 50% of erythroid precursors. 5:16 PM T [facility] Core Biopsy CELLULARITY: Variably cellular bone marrow [...] Bony trabeculae are normal. 5:16 PM T [facility] Special and Immunohistochemical Stains [...] the [facility], [address] [place] [address]. All tests reported here, except those addressing [...] negativity on decalcified specimens. 5:16 PM T [facility] Flow Cytometry Interpretation Flow cytometric analysis demonstrates approximately 27% population of myeloid blasts in this patient with history of myelodysplastic syndrome; expressing CD34, CD117, variable CD33, partial CD56, variable HLA-DR, partial dim CD7, CD38 and dim CD45 ([id number]). 5:16 PM T [facility] Gross Description B. LEFT A single specimen is received in formalin labeled bone marrow biopsy left posterior iliac crest and consists of 1 piece(s) of red/white tissue measuring 0.9 cm in length 0.2 cm in diameter. The specimen is submitted in to Histology for decalcification and routine processing. Cold Time: <1m 5:16 PM T [facility] Note: A resident was involved in the service. I attest I examined the relevant preparations for the specimens and confirmed the diagnosis or interpretation. 5:16 PM T [facility] Bone Marrow Peripheral [...] ed Result - Final Performing Organization Address City/[facility]/ZIP Co de Phone Number [facility] [address] [place] [address] * Hepatitis C Antibody w/Reflex to HCV Quant PCR (01/07/2024 8:42 AM EDT) Hepatitis C Antibody Negative Negative 01/07/2024 10:13 AM EDT [facility] Blood Venous blood specimen / Unknown Venipuncture / Unknown 01/07/2024 8:42 AM EDT 01/07/2024 9:25 AM EDT New Mckinney MD LAB BLOOD ORDERABLES Final Re sult Performing Organization Address City/[facility]/ZIP Co de Phone Number [facility] [address] [place] [address] from Last 3 Months or Most Recently Relevant to Health Maintenance Insurance MEDICARE [facility] Care Teams Rig Hand Relationship Specialty Start Date End Date Jevon Vazquez MD [address] [place] [address] #1 #1 JOSEP [place] [id number] PCP - General 03/23/22
--- OUTSIDE RECORDS SUMMARY | 2025-02-27 09:02 | XMS_ITS | Encounter Summary ---
Author Organization [facility] Address [address] [place] [address] Care Team Providers Care Project Manager Retail Name Role Phone Jevon Vazquez MD Primary Care Provider [phone] Encounter Details Date Type Department Care Team (Latest Contact Info) Description 02/25/2025 Travel Social History Tobacco Use Types Packs/Day [...] Hematology/BMT and Cellular Therapy Program [address] [phone] 03/03/2025 1:30 PM EST Office Visit [facility] Hematology/BMT and Cellular Therapy Program [address] [phone] Zonia Hoffman, GARBAGE TRUCK DISPATCHER 800 [facility] [address] [place] [phone] 04/02/2025 10:30 AM EST Clinical Support [facility] Hematology/BMT and Cellular Therapy Program [address] [phone] 04/02/2025 11:00 AM EST Office Visit [facility] Hematology/BMT and Cellular Therapy Program 750 [facility] [place] [address] Zonia Hoffman, GARBAGE TRUCK DISPATCHER [facility] [address] [place] [phone] documented as of this encounter Visit Diagnoses Not on filedocumented in this encounter Additional Health Concerns Assessment Noted Time A fall risk assessment has been complete d for the patient 01/27/2025 3:25 PM EDT A Body Mass Index follow-up plan has been documented for the patient 05/28/2024 1:52 PM EST documented as of this encounter Care Teams Project Manager Retail Relationship Specialty Start Date End Date Jevon Vazquez MD [address] [place] [address] #1 #1 JOSEP [place] [phone] PCP - General 03/23/22 documented as of this encounter
--- OUTSIDE RECORDS SUMMARY | 2025-02-27 09:02 | XMS_ITS | Encounter Summary ---
Author Organization [facility] Address [address] [place] [address] Care Team Providers Care Cupola Worker Name Role Phone Jevon Vazquez MD Primary Care Provider [phone] Reason for Visit * Reason Comments Med Refill Encounter Details Date Type Department Care Team ([facility] Contact Info) Description 02/18/2025 Refill [facility] Hematology/BMT and Cellular Therapy Program [address] [phone] Zonia Hoffman, MANAGER GRANT 800 [facility] [address] [place] [phone] Immunosuppressed status (CMS/HCC); Acute myeloid leukemia not [...] Hematology/BMT and Cellular Therapy Program [address] [phone] 03/03/2025 1:30 PM EST Office Visit [facility] Hematology/BMT and Cellular Therapy Program [address] [place] [address] Zonia Hoffman, MANAGER GRANT 800 [facility] [address] [place] [phone] 04/02/2025 10:30 AM EST Clinical Support [facility] Hematology/BMT and Cellular Therapy Program [address] [place] [address] [place] [phone] 04/02/2025 11:00 AM EST Office Visit [facility] Hematology/BMT and Cellular Therapy Program [address] [place] [address] [place] [phone] Zonia Hoffman, MANAGER GRANT 800 [facility] [address] [place] [phone] documented as of this encounter Visit Diagnoses [...] documented as of this encounter Care Teams Cupola Worker Relationship Specialty Start Date End Date Jevon Vazquez MD [address] [place] [address] #1 #1 JOSEP [place] [phone] PCP - General 03/23/22 documented as of this encounter
--- OUTSIDE RECORDS SUMMARY | 2025-02-27 09:02 | XMS_ITS | Encounter Summary ---
Author Organization [facility] Address [address] [place] [address] Care Team Providers Care Pediatric Intensive Physician Name Role Phone Jevon Vazquez MD Primary Care Provider [phone] Encounter Details Date Type Department Care Team ([facility] Contact Info) Description 01/07/2025 Telephone [facility] Hematology/BMT and Cellular Therapy Program [address] [phone] Sabine Clemons MD 800 [facility] [address] [place] [phone] Social History Tobacco Use Types Packs/Day Years [...] Type Department Care Team ([facility] Contact Info) Description 03/03/2025 1:00 PM EST Clinical Support [facility] Hematology/BMT and Cellular Therapy Program [address] [phone] 03/03/2025 1:30 PM EST Office Visit [facility] Hematology/BMT and Cellular Therapy Program [address] [phone] Zonia Hoffman, SUPERINTENDENT SEED MILL 800 [facility] [address] [place] [phone] 04/02/2025 10:30 AM EST Clinical Support [facility] Hematology/BMT and Cellular Therapy Program [address] [place] [address] [place] [phone] 04/02/2025 11:00 AM EST Office Visit [facility] Hematology/BMT and Cellular Therapy Program [address] [place] [address] [place] [phone] Zonia Hoffman, SUPERINTENDENT SEED MILL 800 [facility] [address] [place] [phone] documented as of this encounter Visit Diagnoses Not on filedocumented in this encounter Additional Health Concerns Assessment Noted Time A fall risk assessment has been complete d for the patient 09/30/2024 9:33 AM EDT A Body Mass Index follow-up plan has been documented for the patient 05/28/2024 1:52 PM EST documented as of this encounter Care Teams Pediatric Intensive Physician Relationship Specialty Start Date End Date Jevon Vazquez MD [address] [place] [address] #1 #1 [place]SEP [place] [phone] PCP - General 03/23/22 documented as of this encounter
--- OUTSIDE RECORDS SUMMARY | 2025-02-27 09:02 | XMS_ITS | Encounter Summary ---
Author Organization Healthcare Address [address] [place] [address] Care Team Providers Care Resistance Machine Welder Setter Name Role Phone Jevon Vazquez MD Primary Care Provider [phone] Encounter Details Date Type Department Care Team ([facility] Contact Info) Description 01/28/2025 Telephone [facility] Hematology/BMT and Cellular Therapy Program [address] [phone] New Mckinney MD [address] [facility] [address] [place] [phone] Social History Tobacco Use Types Packs/Day Years [...] patient to inform patient of appointment at [place] on 02/04. Patient was informed that a Skinny Mom message will be sent with information. documented in this encounter Plan of Treatment Upcoming Encounters Date Type Department Care Team ([facility] Contact Info) Description 03/03/2025 1:00 PM EST Clinical Support [facility] Hematology/BMT and Cellular Therapy Program [address] [place] [address] [place] [phone] 03/03/2025 1:30 PM EST Office Visit [facility] Hematology/BMT and Cellular Therapy Program [address] [place] [phone] Zonia Hoffman, FLOOR REPRESENTATIVE [address] [facility] [address] [place] [phone] 04/02/2025 10:30 AM EST Clinical Support [facility] Hematology/BMT and Cellular Therapy Program [address] [place] [address] [place] [phone] 04/02/2025 11:00 AM EST Office Visit [facility] Hematology/BMT and Cellular Therapy Program [address] [place] [address] [place] [phone] Zonia Hoffman, FLOOR REPRESENTATIVE [address] [facility] [address] [place] [phone] documented as of this encounter Visit Diagnoses Not on filedocumented in this encounter Additional Health Concerns Assessment Noted Time A fall risk assessment has been complete d for the patient 01/27/2025 3:25 PM EDT A Body Mass Index follow-up plan has been documented for the patient 05/28/2024 1:52 PM EST documented as of this encounter Care Teams Resistance Machine Welder Setter Relationship Specialty Start Date End Date Jevon Vazquez MD [address] [place] [address] #1 #1 JulienJOSEP [phone] PCP - General 03/23/22 documented as of this encounter
--- OUTSIDE RECORDS SUMMARY | 2025-02-27 09:02 | XMS_ITS | Encounter Summary ---
Author Organization [facility] Address [address] [place] [address] Care Team Providers Care Computer Support Specialist Name Role Phone Jevon Vazquez MD Primary Care Provider [phone] Encounter Details Date Type Department Care Team [...] Hematology/BMT and Cellular Therapy Program [address] [phone] 03/03/2025 1:30 PM EST Office Visit [facility] Hematology/BMT and Cellular Therapy Program [address] [phone] Zonia Hoffman, ASSISTANT HEAD CASHIER 800 [facility] [address] [place] [phone] 04/02/2025 10:30 AM EST Clinical Support [facility] Hematology/BMT and Cellular Therapy Program [address] [phone] 04/02/2025 11:00 AM EST Office Visit [facility] Hematology/BMT and Cellular Therapy Program 750 [facility] [place] [address] Zonia Hoffman, ASSISTANT HEAD CASHIER 800 [facility] [address] [place] [address] documented as of this encounter Visit Diagnoses Not on filedocumented in this encounter Additional Health Concerns Assessment Noted Time A fall risk assessment has been complete d for the patient 09/30/2024 9:33 AM EDT A Body Mass Index follow-up plan has been documented for the patient 05/28/2024 1:52 PM EST documented as of this encounter Care Teams Computer Support Specialist Relationship Specialty Start Date End Date Jevon Vazquez MD [address] [place] [address] #1 [address]1 [place] [address] PCP - General 03/23/22 documented as of this encounter
--- OUTSIDE RECORDS SUMMARY | 2025-02-27 09:02 | XMS_ITS | Encounter Summary ---
Author Organization Healthcare Address [address] [place] [address] Care Team Providers Care Metallurgical Laboratory Assistant Name Role Phone Jevon Vazquez MD Primary Care Provider Encounter Details Date Type Department Care Team ([facility] Contact Info) Description 02/16/2025 Orders Only [facility] Hematology/BMT and Cellular Therapy Program [address] [phone] 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, RN [facility] Social History [...] Team ([facility] Contact Info) Description 03/03/2025 1:00 PM EST Clinical Support [facility] Hematology/BMT and Cellular Therapy Program [address] [phone] 03/03/2025 1:30 PM EST Office Visit [facility] Hematology/BMT and Cellular Therapy Program [address] [phone] Zonia Hoffman, AUTOMOTIVE WHOLESALE PARTS ADVISOR 800 [facility] [address] [place] [phone] 04/02/2025 10:30 AM EST Clinical Support PAV Hematology/BMT and Cellular Therapy Program [address] [phone] 04/02/2025 11:00 AM EST Office Visit PAV Hematology/BMT and Cellular Therapy Program [address] [phone] Zonia Hoffman, AUTOMOTIVE WHOLESALE PARTS ADVISOR 800 [facility] [address] [place] [phone] documented as of this encounter Visit Diagnoses Not on filedocumented in this encounter Additional Health Concerns Assessment Noted Time A fall risk assessment has been complete d for the patient 01/27/2025 3:25 PM EDT A Body Mass Index follow-up plan has been documented for the patient 05/28/2024 1:52 PM EST documented as of this encounter Care Teams Metallurgical Laboratory Assistant Relationship Specialty Start Date End Date Jevon Vazquez MD [address] [place] [address] [address]1 [address]1 [place] [address] PCP - General 03/23/22 documented as of this encounter
--- OUTSIDE RECORDS SUMMARY | 2025-02-27 09:02 | XMS_ITS | Encounter Summary ---
Author Organization [facility] Address [address] [place] [address] Care Team Providers Care Car Shakeout Operator Name Role Phone Jevon Vazquez MD Primary Care Provider [phone] Encounter Details Date Type Department Care Team [...] Hematology/BMT and Cellular Therapy Program [address] [phone] 03/03/2025 1:30 PM EST Office Visit [facility] Hematology/BMT and Cellular Therapy Program [address] [phone] Zonia Hoffman, CARDIOLOGY NURSE 800 [facility] [address] [place] [phone] 04/02/2025 10:30 AM EST Clinical Support [facility] Hematology/BMT and Cellular Therapy Program [address] [phone] 04/02/2025 11:00 AM EST Office Visit [facility] CC Hematology/BMT and Cellular Therapy Program 750 [facility] [place] [address] Zonia Hoffman, CARDIOLOGY NURSE 800 [facility] [address] [place] [address] documented as of this encounter Visit Diagnoses Not on filedocumented in this encounter Additional Health Concerns Assessment Noted Time A fall risk assessment has been complete d for the patient 09/30/2024 9:33 AM EDT A Body Mass Index follow-up plan has been documented for the patient 05/28/2024 1:52 PM EST documented as of this encounter Care Teams Car Shakeout Operator Relationship Specialty Start Date End Date Jevon Vazquez MD [address] [place] [address] #1 #1 [place] [address] PCP - General 03/23/22 documented as of this encounter
--- OUTSIDE RECORDS SUMMARY | 2025-02-27 09:02 | XMS_ITS | Encounter Summary ---
Author Organization [facility] Address [address] [place] [address] Care Team Providers Care Bench Tool Maker Name Role Phone Jevon Vazquez MD Primary Care Provider [phone] Reason for Visit * Reason Comments Med Refill Encounter Details Date Type Department Care Team ([facility] Contact Info) Description 01/07/2025 Refill [facility] Hematology/BMT and Cellular Therapy Program [address] [phone] Zonia Hoffman, CONSUMER BANKER 800 [facility] [address] [place] [phone] Social History Tobacco Use Types Packs/Day Years [...] ([facility] Contact Info) Description 03/03/2025 1:00 PM EST Clinical Support [facility] Hematology/BMT and Cellular Therapy Program [address] [phone] 03/03/2025 1:30 PM EST Office Visit [facility] Hematology/BMT and Cellular Therapy Program [address] [phone] Zonia Hoffman, CONSUMER BANKER 800 [facility] [address] [place] [phone] 04/02/2025 10:30 AM EST Clinical Support [facility] Hematology/BMT and Cellular Therapy Program [address] [place] [address] 04/02/2025 11:00 AM EST Office Visit [facility] Hematology/BMT and Cellular Therapy Program [address] [place] [address] Zonia Hoffman, CONSUMER BANKER 800 [facility] [address] [place] [phone] documented as of this encounter Visit Diagnoses Not on filedocumented in this encounter Additional Health Concerns Assessment Noted Time A fall risk assessment has been complete d for the patient 09/30/2024 9:33 AM EDT A Body Mass Index follow-up plan has been documented for the patient 05/28/2024 1:52 PM EST documented as of this encounter Care Teams Bench Tool Maker Relationship Specialty Start Date End Date Jevon Vazquez MD [address] [place] [address] #1 [address]1 [place] [address] PCP - General 03/23/22 documented as of this encounter
--- OUTSIDE RECORDS SUMMARY | 2025-02-27 09:02 | XMS_ITS | Encounter Summary ---
Author Organization Healthcare Address [address] [place] [address] Care Team Providers Care Human Resources Receptionist Name Role Phone Jevon Vazquez MD Primary Care Provider [phone] Encounter Details Date Type Department Care Team ([facility] Contact Info) Description 12/29/2024 Telephone [facility] Hematology/BMT and Cellular Therapy Program [address] [phone] Bibiana Sepulveda, FELT HOOKER 800 [facility] [address] [place] [phone] Social History Tobacco Use Types Packs/Day Years [...] wants to repeat BMBx. She verbalizes understanding. Supervisor Fitting made aware. documented in this encounter Plan of Treatment Upcoming Encounters Date Type Department Care Team ([facility] Contact Info) Description 03/03/2025 1:00 PM EST Clinical Support [facility] Hematology/BMT and Cellular Therapy Program [address] [place] [address] [place] [address] 03/03/2025 1:30 PM EST Office Visit [facility] Hematology/BMT and Cellular Therapy Program [address] [place] [address] [place] [phone] Zonia Hoffman, FELT HOOKER 800 [facility] [address] [place] [phone] 04/02/2025 10:30 AM EST Clinical Support [facility] Hematology/BMT and Cellular Therapy Program [address] [place] [address] [place] [phone] 04/02/2025 11:00 AM EST Office Visit [facility] Hematology/BMT and Cellular Therapy Program [address] [place] [address] [place] [phone] Zonia Hoffman, FELT HOOKER 800 [facility] [address] [place] [phone] documented as of this encounter Visit Diagnoses Not on filedocumented in this encounter Additional Health Concerns Assessment Noted Time A fall risk assessment has been complete d for the patient 09/30/2024 9:33 AM EDT A Body Mass Index follow-up plan has been documented for the patient 05/28/2024 1:52 PM EST documented as of this encounter Care Teams Human Resources Receptionist Relationship Specialty Start Date End Date Jevon Vazquez MD [address] [place] [address] #1 #1 [place] [address] PCP - General 03/23/22 documented as of this encounter
--- OUTSIDE RECORDS SUMMARY | 2025-02-27 09:02 | XMS_ITS | Clinical Summary ---
Author Organization [facility] Address [address] [place] [address] Care Team Providers Care Lining Machine Operator Name Role Phone David Vazquez Primary Care Provider [phone] Allergies No known active allergies Medications atorvastatin [...] Discontinued 01/24/2023 Medical Devices Implanted Type [employer] Device Identifier Shelf Expiration Date Model / Serial / Lot Mis Ply Scr 6.5x50mm - [id number] Implanted:Qty : 1 on 01/30/2023 by Ivan Bartholomew MD at [facility] Screw N/A: Spine Lumbar [employer] [id number] / / Mis Ply Scr 6.5x45mm - [id number] Implanted:Qty : 3 on 01/30/2023 by Ivan Bartholomew MD at [facility] Screw N/A: Spine Lumbar [employer] [id number] / / Reline Mas Reduction Screw 7.5x45 - [id number] Implanted:Qty : 2 on 01/30/2023 by Ivan Bartholomew MD at [facility] Screw N/A: Spine Lumbar [employer] [id number] / / Grft Dbm Vesuvius Putty 5cc - [id number] Implanted:Qty : 1 on 01/30/2023 by Ivan Bartholomew MD at [facility] [employer] [id number] 04/20/2025 [id number] P / [id number] / Putty I-Factor 5.0cc - [id number] Implanted:Qty : 1 on 01/30/2023 by Ivan Bartholomew MD at [facility] N/A: Spine Lumbar [employer] 03/15/2025 [id number] / / [id number] Modulus Xlw [id number] 10 Degree - [id number] Implanted:Qty : 1 on 01/30/2023 by Ivan Bartholomew MD at [facility] N/A: Spine Lumbar [employer] [id number] / / [id number] Modulus Xlw [id number] - [id number] Implanted:Qty : 1 on 01/30/2023 by Ivan Bartholomew MD at [facility] N/A: Spine Lumbar [employer] 09/28/2027 [id number] / / [id number] Reln Lock Scr 5.5mm Opn Tulip - [id number] Implanted:Qty : 6 on 01/30/2023 by Ivan Bartholomew MD at [facility] N/A: Spine Lumbar [employer] [id number] / / Reln Mas Ti Petar 5.5x70mm - [id number] Implanted:Qty : 2 on 01/30/2023 by Ivan Bartholomew MD at [facility] N/A: Spine Lumbar [employer] [id number] / / Procedures Procedure Name Priority Date/Time [...] [facility] [address] from Last 3 Months or Most Recently Relevant to Health Maintenance Insurance MEDICARE Member Subscriber Plan / Payer (Ef fective 2016-Present) Name:Ashly Briceño Member ID:[id number] Relation to Subscriber:Self Name:Ashly Briceño Subscriber ID:[id number] Payer ID:[id number] Group ID:Not on file Type:Medicare Address: [facility] J15 PART A [facility] [place] [address] [place] [place] [address] [facility] Advance Directives For more information, please contact: [phone] * Full Code (Latest Code Status on File) Date Activated Date Inactivated Comments 01/30/2023 9:13 AM No automated chest compression devices for VAD Patients Care Teams Lining Machine Operator Relationship Specialty Start Date End Date David Vazquez [address] [place] [address] PCP - General 01/24/23
--- OUTSIDE RECORDS SUMMARY | 2025-02-27 09:02 | XMS_ITS | Encounter Summary ---
Author Organization [facility] Address [address] [place] [address] Care Team Providers Care Treating And Pumping Supervisor Name Role Phone Jevon Vazquez MD Primary Care Provider [phone] Reason for Visit * Reason Comments Med Refill Encounter Details Date Type Department Care Team ([facility] Contact Info) Description 02/27/2025 Refill [facility] Hematology/BMT and Cellular Therapy Program [address] [phone] Zonia Hoffman, TOUR AGENT 800 [facility] [address] [place] [phone] Social History Tobacco Use Types Packs/Day Years [...] Hematology/BMT and Cellular Therapy Program [address] [phone] 03/03/2025 1:30 PM EST Office Visit [facility] Hematology/BMT and Cellular Therapy Program [address] [phone] Zonia Hoffman, TOUR AGENT 800 [facility] [address] [place] [phone] 04/02/2025 10:30 AM EST Clinical Support [facility] Hematology/BMT and Cellular Therapy Program [address] [place] [address] 04/02/2025 11:00 AM EST Office Visit [facility] Hematology/BMT and Cellular Therapy Program [address] [place] [address] Zonia Hoffman, TOUR AGENT 800 [facility] [address] [place] [phone] documented as of this encounter Visit Diagnoses Not on filedocumented in this encounter Additional Health Concerns Assessment Noted Time A fall risk assessment has been complete d for the patient 01/27/2025 3:25 PM EDT A Body Mass Index follow-up plan has been documented for the patient 05/28/2024 1:52 PM EST documented as of this encounter Care Teams Treating And Pumping Supervisor Relationship Specialty Start Date End Date Jevon Vazquez MD [address] [place] [address] #1 [address]1 [place] [address] PCP - General 03/23/22 documented as of this encounter
--- OUTSIDE RECORDS SUMMARY | 2025-02-27 09:02 | XMS_ITS | Encounter Summary ---
Author Organization [facility] Address [address] [place] [address] Care Team Providers Care Postdoctoral Scientist Name Role Phone Jevon Vazquez MD Primary Care Provider [phone] Reason for Referral * Genetic Testing (Routine) - Closed Specialty Diagnoses / Procedures Referred By Rebecca Referred To Contact Lab Diagnoses Myelodysplastic syndrome (CMS/HCC) Procedures Cytogenetics Testing, Oncology New Mckinney MD [address] [address] Phone: tel: fax: Referral ID Status Reason Start Date Expiration Date Visits Re quested Visits Authorized [id number] Closed 12/29/2024 06/30/2026 1 1 * Genetic Testing (Routine) - Authorized Specialty Diagnoses / Procedures [facility] Referred To Contact Lab Diagnoses Myelodysplastic syndrome (CMS/HCC) Procedures Leukemia/Lymphoma - Immunophenotyping by Flow Cytometry New Mckinney MD 800 [facility] [address] [address] Phone: tel: fax: Referral ID Status Reason Start Date Expiration Date V isits Requested Visits Authorized [id number] Authorized 12/29/2024 06/30/2026 1 1 * Genetic Testing (Routine) - Authorized Specialty Diagnoses / Procedures [facility] Referred To Contact Lab Diagnoses Myelodysplastic syndrome (CMS/HCC) Procedures Bone marrow exam New Mckinney MD 800 [facility] [address] [place] [phone] Phone: tel: fax: Referral ID Status Reason Start Date Expiration Date V isits Requested Visits Authorized [id number] Authorized 12/29/2024 06/30/2026 1 1 Encounter Details Date Type Department Care Team ([facility] Contact Info) Description 12/29/2024 Orders Only [facility] Hematology/BMT and Cellular Therapy Program [address] [place] [address] New Mckinney MD 800 [facility] [address] [place] [phone] Myelodysplastic syndrome (CMS/HCC) (Primary Dx) Social [...] Hematology/BMT and Cellular Therapy Program [address] [place] [address] 03/03/2025 1:30 PM EST Office Visit [facility] Hematology/BMT and Cellular Therapy Program [address] [place] [address] Zonia Hoffman APRN 800 [facility] [address] [address] 04/02/2025 10:30 AM EST Clinical Support PAV Hematology/BMT and Cellular Therapy Program 750 [facility] [place] [phone] 04/02/2025 11:00 AM EST Office Visit PAV Hematology/BMT and Cellular Therapy Program 750 [facility], [address] [place] [address] [place] [phone] Zonia Hoffman, RETAIL WIRELESS SALES REPRESENTATIVE 800 [facility] [address] [place] [phone] documented as of this encounter Results * [...] 01/12/2025 4:19 PM EDT [facility] Disclaimer This test was developed [...] 01/12/2025 4:19 PM EDT [facility] Pathologist Signature Reviewed by: Asad Hartman MD 01/12/2025 4:19 PM EDT [facility] MRD Indicated Test Not Indicated 4:19 PM EDT [facility] Bone Marrow Specimen from bone marrow obtained by aspiration / Unknown Non-blood Collection / Unknown 01/12/2025 9:55 AM EDT 01/12/2025 1:48 PM EDT New Mckinney MD LAB FLOW CYTOMETRY ORDERABLES Final Result [facility] [address] [place] [address] * Bone marrow exam (01/12/2025 9:55 AM EDT) Case Report Bone Marrow Case: [id number] Authorizing Provider: New Mckinney MD Collected: 01/12/2025 0955 Ordering Location: [facility] Hematology/BMT and Received: 01/12/2025 1143 Cellular Therapy Program Pathologist: Asad Hartman MD Specimens: A) - Bone Marrow Aspirate, left B) - Bone Marrow Biopsy, left C) - Peripheral Blood for Bone Marrow 5:16 PM EDT [facility] Cytogenetics Report, Addendum Chromosome Analysis Result: Giemsa-banded metaphase cells from unstimulated bone marrow cultures showed the following chromosome pattern: 43~44,X,-X,add(5)( q23),del(5)(q13q33 ),todd(7)ins?(7)(q1 1.2q11.2)t(7;12)(q 11.2;q13),-12,todd( 17)add(17)(p13.2)a dd(17)(q21)[16]/88 ,XX,idemx2[cp3]/46 ,XY[1] Interpretation: Abnormal female chromosome analysis. 95% of metaphase cells analyzed showed clonal abnormalities consistent with this patient's previous abnormal results (see [facility]-[id number]). 5:16 PM EDT [facility] [...] 0-4 2 Other 5 5:16 PM EDT [facility] Aspirate Smear [...] 50% of erythroid precursors. 5:16 PM EDT [facility] Core Biopsy [...] the [facility], [address] [place] [address]. All tests reported here, except those addressing [...] partial dim CD7, CD38 and dim CD45 ([id number]). 5:16 PM T [facility] Gross Description B. LEFT A single specimen is received in formalin labeled bone marrow biopsy left posterior iliac crest and consists of 1 piece(s) of red/white tissue measuring 0.9 cm in length 0.2 cm in diameter. The specimen is submitted in to Histology for decalcification and routine processing. Cold Time: <1m 5:16 PM [facility] Note: A resident [...] Final [facility] [address] [place] [address] documented in this encounter Visit Diagnoses Diagnosis Myelodysplastic syndrome (CMS/HCC)- Primary Myelodysplastic syndrome, unspecified documented in this encounter Additional Health Concerns Assessment Noted Time A fall risk assessment has been complete d for the patient 09/30/2024 9:33 AM EDT A Body Mass Index follow-up plan has been documented for the patient 05/28/2024 1:52 PM EST documented as of this encounter Care Teams Postdoctoral Scientist Relationship Specialty Start Date End Date Jevon Vazquez MD [address] [place] [address] #1 [address]1 [place] [address] PCP - General 03/23/22 documented as of this encounter
--- OUTSIDE RECORDS SUMMARY | 2025-02-27 09:02 | XMS_ITS | Encounter Summary ---
Author Organization Healthcare Address [address] [place] [address] Care Team Providers Care Collision Technician Name Role Phone Jevon Vazquez MD Primary Care Provider [phone] Encounter Details Date Type Department Care Team (Late Contact Info) Description 01/16/2025 Telephone [facility] Hematology/BMT and Cellular Therapy Program [address] [place] [address] [place] [address] Daxa Elliott RN [facility] HEMATOLOG[facility] PROGRAM CLINIC Social [...] Hematology/BMT and Cellular Therapy Program [address] [place] [phone] 03/03/2025 1:30 PM EST Office Visit [facility] Hematology/BMT and Cellular Therapy Program [address] [place] [phone] Zonia Hoffman, PULLER OVER 800 [facility] [address] [place] [phone] 04/02/2025 10:30 AM EST Clinical Support [facility] Hematology/BMT and Cellular Therapy Program [address] [place] [address] [place] [phone] 04/02/2025 11:00 AM EST Office Visit [facility] Hematology/BMT and Cellular Therapy Program [address] [place] [address] [place] [phone] Zonia Hoffman, PULLER OVER 800 [facility] [address] [place] [phone] documented as of this encounter Visit Diagnoses Not on filedocumented in this encounter Additional Health Concerns Assessment Noted Time A fall risk assessment has been complete d for the patient 09/30/2024 9:33 AM EDT A Body Mass Index follow-up plan has been documented for the patient 05/28/2024 1:52 PM EST documented as of this encounter Care Teams Collision Technician Relationship Specialty Start Date End Date Jevon Vazquez MD [address] [place] [address] #1 #1 [place] [address] PCP - General 03/23/22 documented as of this encounter
--- OUTSIDE RECORDS SUMMARY | 2025-02-27 09:02 | XMS_ITS | Encounter Summary ---
Author Organization Healthcare Address [address] [place] [address] Care Team Providers Care Android Developer Name Role Phone Jevon Vazquez MD Primary Care Provider [phone] Encounter Details Date Type Department Care Team ([facility] Contact Info) Description 02/25/2025 Telephone [facility] Hematology/BMT and Cellular Therapy Program [address] [phone] Astrid South RN [facility] Social History Tobacco [...] Hematology/BMT and Cellular Therapy Program [address] [phone] 03/03/2025 1:30 PM EST Office Visit [facility] Hematology/BMT and Cellular Therapy Program [address] [phone] Zonia Hoffman, PAPER TUBE MACHINE OPERATOR 800 [facility] [address] [place] [phone] 04/02/2025 10:30 AM EST Clinical Support P[facility] Hematology/BMT and Cellular Therapy Program [address] [phone] 04/02/2025 11:00 AM EST Office Visit [facility] Hematology/BMT and Cellular Therapy Program [address] [phone] Zonia Hoffman, PAPER TUBE MACHINE OPERATOR 800 [facility] [address] [place] [phone] documented as of this encounter Visit Diagnoses Not on filedocumented in this encounter Additional Health Concerns Assessment Noted Time A fall risk assessment has been complete d for the patient 01/27/2025 3:25 PM EDT A Body Mass Index follow-up plan has been documented for the patient 05/28/2024 1:52 PM EST documented as of this encounter Care Teams Android Developer Relationship Specialty Start Date End Date Jevon Vazquez MD [address] [place] [address] [address] [place] [address] PCP - General 03/23/22 documented as of this encounter
--- OUTSIDE RECORDS SUMMARY | 2025-02-27 09:02 | XMS_ITS | Encounter Summary ---
Author Organization [facility] Address [address] [place] [address] Care Team Providers Care Head Chopper Name Role Phone Jevon Vazquez MD Primary Care Provider [phone] Encounter Details Date Type Department Care Team (Latest Contact Info) Description 02/26/2025 Travel Social History Tobacco Use Types Packs/Day [...] Hematology/BMT and Cellular Therapy Program [address] [phone] 03/03/2025 1:30 PM EST Office Visit [facility] Hematology/BMT and Cellular Therapy Program [address] [phone] Zonia Hoffman, DEBT COLLECTION SPECIALIST 800 [facility] [address] [place] [phone] 04/02/2025 10:30 AM EST Clinical Support [facility] Hematology/BMT and Cellular Therapy Program [address] [phone] 04/02/2025 11:00 AM EST Office Visit [facility] Hematology/BMT and Cellular Therapy Program 750 [facility] [place] [address] Zonia Hoffman, DEBT COLLECTION SPECIALIST 800 [facility] [address] [place] [address] documented as of this encounter Visit Diagnoses Not on filedocumented in this encounter Additional Health Concerns Assessment Noted Time A fall risk assessment has been complete d for the patient 01/27/2025 3:25 PM EDT A Body Mass Index follow-up plan has been documented for the patient 05/28/2024 1:52 PM EST documented as of this encounter Care Teams Head Chopper Relationship Specialty Start Date End Date Jevon Vazquez MD [address] [place] [address] [address] [place] [address] PCP - General 03/23/22 documented as of this encounter
--- OUTSIDE RECORDS SUMMARY | 2025-02-27 09:03 | XMS_ITS | Encounter Summary ---
Author Organization [facility] Address [address] [place] [address] Care Team Providers Care Tongue And Quarter Stitcher Name Role Phone Jevon Vazquez MD Primary Care Provider [phone] Encounter Details Date Type Department Care Team (Late st Contact Info) Description 01/27/2025 Telephone [facility] [address] [place] [phone] Emil Hardy, PharmD Social History Tobacco Use [...] Injectable, preservative free 03/21/2024 Moderna COVID-19 Vaccine (Webbing Tacker) 12+ years 06/12/2020, 07/10/2020, 02/18/2021 Selected lab [...] Patient reports education was provided by clinic [facility]. She denied further education at this [...] CC Hematology/BMT and Cellular Therapy Program [address] [place] [phone] 03/03/2025 1:30 PM EST Office Visit [facility]AV Hematology/BMT and Cellular Therapy Program [address] [place] [phone] Zonia Hoffman, GUILLOTINE TRIMMER 800 [facility] [address] [place] [phone] 04/02/2025 10:30 AM EST Clinical Support [facility] Hematology/BMT and Cellular Therapy Program [address] [place] [phone] 04/02/2025 11:00 AM EST Office Visit [facility] Hematology/BMT and Cellular Therapy Program [address] [place] [phone] Zonia Hoffman, GUILLOTINE TRIMMER 800 [facility] [address] [place] [phone] documented as of this encounter Visit Diagnoses Not on filedocumented in this encounter Additional Health Concerns Assessment Noted Time A fall risk assessment has been complete d for the patient 01/27/2025 3:25 PM EDT A Body Mass Index follow-up plan has been documented for the patient 05/28/2024 1:52 PM EST documented as of this encounter Care Teams Tongue And Quarter Stitcher Relationship Specialty Start Date End Date Jevon Vazquez MD [address] [place] [address] [address] [place] [address] PCP - General 03/23/22 documented as of this encounter
--- OUTSIDE RECORDS SUMMARY | 2025-02-27 09:03 | XMS_ITS | Encounter Summary ---
Author Organization [facility] Address [address] [place] [address] Care Team Providers Care Button Bradder Name Role Phone Jevon Vazquez MD Primary Care Provider [phone] Encounter Details Date Type Department Care Team ([facility] Contact Info) Description 01/27/2025 Telephone [facility] Hematology/BMT and Cellular Therapy Program [address] [place] [phone] Alyson Vivas RN Social History Tobacco Use [...] Team ([facility] Contact Info) Description 03/03/2025 1:00 PM EST Clinical Support [facility] Hematology/BMT and Cellular Therapy Program [address] [place] [phone] 03/03/2025 1:30 PM EST Office Visit [facility] Hematology/BMT and Cellular Therapy Program [address] [place] [address] [place] [phone] Zonia Hoffman, CHAIR POST MACHINE OPERATOR 800 [facility] [address] [place] [phone] 04/02/2025 10:30 AM EST Clinical Support [facility] Hematology/BMT and Cellular Therapy Program [address] [place] [address] [place] [phone] 04/02/2025 11:00 AM EST Office Visit [facility]AV Hematology/BMT and Cellular Therapy Program [address] [place] [address] [place] [phone] Zonia Hoffman, CHAIR POST MACHINE OPERATOR 800 [facility] [address] [place] [phone] documented as of this encounter Visit Diagnoses Not on filedocumented in this encounter Additional Health Concerns Assessment Noted Time A fall risk assessment has been complete d for the patient 01/27/2025 3:25 PM EDT A Body Mass Index follow-up plan has been documented for the patient 05/28/2024 1:52 PM EST documented as of this encounter Care Teams Button Bradder Relationship Specialty Start Date End Date Jevon Vazquez MD [address] [place] [address] [address] [place] [id number] PCP - General 03/23/22 documented as of this encounter
--- OUTSIDE RECORDS SUMMARY | 2025-02-27 09:03 | XMS_ITS | Encounter Summary ---
Author Organization [facility] Address [address] [place] [address] Care Team Providers Care Entry Driver Operator Name Role Phone Jevon Vazquez MD Primary Care Provider [phone] Encounter Details Date Type Department Care Team [...] Hematology/BMT and Cellular Therapy Program [address] [phone] 03/03/2025 1:30 PM EST Office Visit [facility] CC Hematology/BMT and Cellular Therapy Program [address] [phone] Zonia Hoffman, MILITARY ANALYST 800 [facility] [address] [place] [phone] 04/02/2025 10:30 AM EST Clinical Support [facility] Hematology/BMT and Cellular Therapy Program [address] [phone] 04/02/2025 11:00 AM EST Office Visit [facility] CC Hematology/BMT and Cellular Therapy Program 750 [facility] [place] [address] Zonia Hoffman, MILITARY ANALYST 800 [facility] [address] [place] [phone] documented as of this encounter Visit Diagnoses Not on filedocumented in this encounter Additional Health Concerns Assessment Noted Time A fall risk assessment has been complete d for the patient 09/30/2024 9:33 AM EDT A Body Mass Index follow-up plan has been documented for the patient 05/28/2024 1:52 PM EST documented as of this encounter Care Teams Entry Driver Operator Relationship Specialty Start Date End Date Jevon Vazquez MD [address] [place] [address] #1 [address]1 [place] [address] PCP - General 03/23/22 documented as of this encounter
--- OUTSIDE RECORDS SUMMARY | 2025-02-27 09:03 | XMS_ITS | Clinical Summary ---
Author Organization [facility] Address [address] [place] [address] Phone Care Team Providers Care Manager Education Name Role Phone Jevon Vazquez MD Primary Care Provider [phone] Allergies Active Allergy Reactions Criticality Noted Date [...] LAMINECTOMY; Surgeon: Ivan Bartholomew MD; Location: [facility] MAIN OR; Service: Spine [...] 5.6 % 11/14/2022 2:57 PM EDT PREFERRED [facility], [employer] Est. Avg Glucose 148 mg/dL 11/14/2022 2:57 PM EDT [employer], [employer] Blood VENOUS BLOOD / Unknown Venipuncture / Unknown 11/11/2022 3:46 PM EDT 11/11/2022 3:55 PM EDT Narrative PREFERRED [facility] - 11/14/2022 2:57 PM EDT REFERENCE RANGE: Normal: 4.0-5.6% Pre-diabetes: 5.7-6.4% Provisional diagnosis of diabetes: >6.4% Hgb F>10% and anything which shortens red cell survival, such as hemolytic anemia, or unstable hemoglobin variants such as HbSS, HbSC, or HbCC, will lower the HbA1c value associated with a given level of glycemic control. us Lexi Maloney DO CHEMISTRY ORDERABLES Final R esult [employer] [facility] , [address] [place] [id number] * (ABNORMAL) BASIC METABOLIC PANEL (11/11/2022 3:46 [...] EDT [facility] eGFR (CKD-EPIcr 2021) 76 >=60 mL/min/1.7 3 m2 11/11/2022 4:11 PM EDT [facility] Comment:Estimated GFR was ca lculated using the CKD-EPIcr (2020) equation refit without race. The equation is recommended by the National Kidney Foundation - [place] [employer] of Nephrology Task Force. Blood VENOUS BLOOD / Unknown Venipuncture / Unknown 11/11/2022 3:46 PM EDT 11/11/2022 3:54 PM EDT us Leona Hanna DO CHEMISTRY ORDERABLES Final Res ult [facility] [address] [place] [address] * DX BONE DENSITY AXIAL SKELETON (07/25/2022 9:14 AM EDT) Anatomical Region Laterality Modality Dexa Scan 07/25/2022 Narrative 07/25/2022 3:45 PM EDT Indication: The patient is a female age 65 or older who requires a bone density assessment. Study was performed on [employer] 5. Bone Density: Region BMD T-score Z-score [...] Payer (Ef fective 2016-Present) Name:Ashly Hernández Member ID:[id number] Relation to Subscriber:Self Name:Ashly Hernández Subscriber ID:[id number] Payer ID:Not on file Group ID:Not on file Type:Not on file Address: [address] MEDICARE SUPPLEMENT MEDICARE [place] PART A & B [place] PART A AND B Member Subscriber Plan / Payer (Ef fective 2016-Present) Name:Ashly Hernández Member ID:[id number] Relation to Subscriber:Self Name:Ashly Hernández Subscriber ID:[id number] Payer ID:Not on file Group ID:Not on file Type:Not on file Address: [address] MEDICARE SUPPLEMENT [employer] MEDICARE [place] PART A AND B [address] MEDICARE SUPPLEMENT Advance Directives For more information, please contact: [phone] * Full Code (Latest Code Status on File) Date Activated Date Inactivated Comments 11/14/2022 6:53 PM 11/16/2022 7:37 PM * Full Code Date Activated Date Inactivated Comments 11/12/2022 5:17 AM 11/14/2022 6:47 PM Care Teams Manager Education Relationship Specialty Start Date End Date Jevon Vazquez MD [address] [place] [address] PCP - General Family Medicine 11/10/22
[2025-02-27 09:16] LABS: Hematocrit 31.4 % (37.0-47.0); Hemoglobin 10.5 g/dL (12.2-16.2); Immature Granulocytes % 0 %; Mean Corpuscular HGB Conc 33.4 g/dL (31.8-35.4); Mean Corpuscular Hemoglobin 28.4 pg (27.0-31.2); Mean Corpuscular Volume 84.9 fl (81-99); Nucleated Red Blood Cells % 0 %; Platelet Count 52 K/mm3 (142-424); Red Blood Count 3.70 M/mm3 (4.20-5.40); Red Cell Distribution Width-SD 48.5 fL
[2025-02-27 09:24] LABS: White Blood Count 0.7 K/mm3 (4.8-10.8)
[2025-02-27 09:26] LABS: Alanine Aminotransferase 17 U/L (12-78); Albumin Level 3.5 g/dl (3.5-5.0); Albumin/Globulin Ratio 1.2 (1.1-1.8); Alkaline Phosphatase 51 U/L (38-126); Anion Gap 12.7 mEq/L (5-15); Aspartate Amino Transferase 23 U/L (14-36); Bilirubin,Total 0.8 mg/dl (0.2-1.3); Blood Urea Nitrogen 17 mg/dl (7-17); Calcium 9.3 mg/dl (8.4-10.2); Carbon Dioxide 21 mmol/L (22.0-30.0); Chloride 107 mmol/L (98-107); Creatinine Clearance Estimated 46 mL/min (50-200); Creatinine,Serum 0.70 mg/dl (0.52-1.04); Estimated Glomerular Filt Rate 82 ml/min (>60); GFR (African American) 99 ML/MIN (>60); Globulin 3.0 g/dL (1.3-3.2); Glucose 224 mg/dl (74-100); Potassium 3.7 mmoL/L (3.5-5.1); Sodium 137 mmol/L (136-145); Total Protein,Serum 6.5 g/dl (6.3-8.2)
[2025-02-27] MEDS: SODIUM CHLORIDE 0.9% 10ML FLUSH SYRINGE 10 ML IV (09:43)
[2025-02-27 10:21] LABS: Total Cells Counted 25
[2025-02-27 10:22] LABS: RBC Morphology Normal
== END 2025-02-27 09:35 | disposition home or self-care (01) ==
LOC: INF 08:59
PROVIDERS: PCP Family Medicine; Visit Provider Internal Medicine Medical Oncology
DX: C92.00 Acute myeloblastic leukemia, not having achieved remission (principal)
CPT/HCPCS: 36591; 80053; 85007; 85025; 85027; J1642

== ENCOUNTER 2025-03-02 08:59 | Outpatient (CLI) | payer MEDICARE, BC, SELFPAY ==
[2025-03-02 09:21] LABS: Hematocrit 28.6 % (37.0-47.0); Hemoglobin 9.3 g/dL (12.2-16.2); Immature Granulocytes % 0 %; Mean Corpuscular HGB Conc 32.5 g/dL (31.8-35.4); Mean Corpuscular Hemoglobin 28.2 pg (27.0-31.2); Mean Corpuscular Volume 86.7 fl (81-99); Nucleated Red Blood Cells % 0 %; Red Blood Count 3.30 M/mm3 (4.20-5.40); Red Cell Distribution Width-SD 48.7 fL
[2025-03-02 09:24] LABS: White Blood Count 0.7 K/mm3 (4.8-10.8)
[2025-03-02 09:25] LABS: Platelet Count 16 K/mm3 (142-424)
[2025-03-02 09:30] LABS: Alanine Aminotransferase 16 U/L (12-78); Albumin Level 3.3 g/dl (3.5-5.0); Albumin/Globulin Ratio 1.1 (1.1-1.8); Alkaline Phosphatase 52 U/L (38-126); Anion Gap 11.8 mEq/L (5-15); Aspartate Amino Transferase 22 U/L (14-36); Bilirubin,Total 0.9 mg/dl (0.2-1.3); Blood Urea Nitrogen 20 mg/dl (7-17); Calcium 9.4 mg/dl (8.4-10.2); Carbon Dioxide 20 mmol/L (22.0-30.0); Chloride 108 mmol/L (98-107); Creatinine,Serum 0.80 mg/dl (0.52-1.04); Estimated Glomerular Filt Rate 70 ml/min (>60); GFR (African American) 85 ML/MIN (>60); Globulin 2.9 g/dL (1.3-3.2); Glucose 219 mg/dl (74-100); Potassium 3.8 mmoL/L (3.5-5.1); Sodium 136 mmol/L (136-145); Total Protein,Serum 6.2 g/dl (6.3-8.2)
[2025-03-02] MEDS: SODIUM CHLORIDE 0.9% 10ML FLUSH SYRINGE 10 ML IV (09:30)
[2025-03-02 09:38] VITALS: BMI 21.8
[2025-03-02 09:46] LABS: RBC Morphology Normal; Total Cells Counted 25
== END 2025-03-02 23:59 | disposition home or self-care (01) ==
PROVIDERS: PCP Family Medicine; Visit Provider Internal Medicine Medical Oncology
DX: C92.00 Acute myeloblastic leukemia, not having achieved remission (principal)
CPT/HCPCS: 36591; 80053; 85007; 85025; 85027; J1642

== ENCOUNTER 2025-03-04 09:00 | Outpatient (CLI) | payer MEDICARE, BC, SELFPAY ==
[2025-03-04] VITALS (12 sets, daily range): BP systolic 114–133; BP diastolic 48–85; PULSE 92–102; RESP 19–21; TEMP 37.2–37.4; O2SAT 98–100
[2025-03-04 09:22] LABS: Hematocrit 25.0 % (37.0-47.0); Hemoglobin 8.1 g/dL (12.2-16.2); Immature Granulocytes % 0 %; Mean Corpuscular HGB Conc 32.4 g/dL (31.8-35.4); Mean Corpuscular Hemoglobin 28.5 pg (27.0-31.2); Mean Corpuscular Volume 88.0 fl (81-99); Nucleated Red Blood Cells % 0 %; Red Blood Count 2.84 M/mm3 (4.20-5.40); Red Cell Distribution Width-SD 49.1 fL
[2025-03-04 09:24] LABS: Platelet Count 7 K/mm3 (142-424); White Blood Count 0.8 K/mm3 (4.8-10.8)
[2025-03-04 10:48] LABS: Total Cells Counted 25
[2025-03-04 10:49] LABS: RBC Morphology Normal
[2025-03-04] MEDS: 0.9 % SODIUM CHLORIDE 250 ML 25 ML IV (12:04)
[2025-03-04] MEDS: SODIUM CHLORIDE 0.9% 10ML FLUSH SYRINGE 10 ML IV (13:40)
== END 2025-03-04 23:59 | disposition home or self-care (01) ==
LOC: INF 09:01
PROVIDERS: PCP Family Medicine; Visit Provider Internal Medicine Medical Oncology
DX: C92.00 Acute myeloblastic leukemia, not having achieved remission (principal)
CPT/HCPCS: 36430; 85007; 85025; 85027; 86850; 86900; 86901; J1642; J7050; P9034

== ENCOUNTER 2025-03-06 09:31 | Outpatient (CLI) | payer MEDICARE, BC, SELFPAY ==
--- OUTSIDE RECORDS SUMMARY | 2025-01-12 08:30 | XMS_ITS | Encounter Summary ---
Author Organization [facility] Address [address] [place] [address] Care Team Providers Care Coater Carbon Paper Name Role Phone Jevon Vazquez MD Primary Care Provider [phone] Reason for Visit * Reason Comments Labs Encounter Details Date Type Department Care Team ([facility] Contact Info) Description 01/12/2025 9:30 AM EDT Clinical Support [facility] Hematology/BMT and Cellular Therapy Program [address] [phone] Social History Tobacco Use Types Packs/Day Years [...] [facility] Info) Description 04/02/2025 10:30 AM EST Clinical Support [facility] Hematology/BMT and Cellular Therapy Program [address] [phone] 04/02/2025 11:00 AM EST Office Visit [facility] Hematology/BMT and Cellular Therapy Program [address] [phone] Zonia Hoffman, BANK VAULT CUSTODIAN 800 [facility] [address] [place] [phone] documented as of this encounter Visit Diagnoses Not on filedocumented in this encounter Additional Health Concerns Assessment Noted Time A fall risk assessment has been complete d for the patient 09/30/2024 9:33 AM EDT A Body Mass Index follow-up plan has been documented for the patient 05/28/2024 1:52 PM EST documented as of this encounter Care Teams Coater Carbon Paper Relationship Specialty Start Date End Date Jevon Vazquez MD [address] [place] [address] #1 #1 [place] [address] PCP - General 03/23/22 documented as of this encounter
--- OUTSIDE RECORDS SUMMARY | 2025-01-12 09:00 | XMS_ITS | Encounter Summary ---
Author Organization [facility] Address [address] [place] [address] Care Team Providers Care Supervisor Wheel [employer] Name Role Phone Jevon Vazquez MD Primary Care Provider [phone] Reason for Visit * Genetic Testing (Routine) - Authorized Specialty Diagnoses / Procedures Referred By Rebecca barron Referred To Contact Lab Diagnoses Myelodysplastic syndrome (CMS/HCC) Procedures Leukemia/Lymphoma - Immunophenotyping by Flow Cytometry New Mckinney MD [address] [facility] [address] [address] Phone: tel: fax: Referral ID Status Reason Start Date Expiration Date V isits Requested Visits Authorized [id number] Authorized 12/29/2024 06/30/2026 1 1 Encounter Details Date Type Department Care Team (Latest Contact Info) Description 01/12/2025 10:00 AM EDT Procedure Visit [facility] Hematology/BMT and Cellular Therapy Program [address] [phone] Rebecca Barrientos PA 800 [facility] [address] [address] Myelodysplastic syndrome (CMS/HCC); Acute myeloid [...] CC HEMATOLOGY/BMT AND CELLULAR THERAPY PROGRAM [address] [facility] [phone] / documented in this encounter Plan of Treatment Upcoming Encounters Date Type Department Care Team ([facility] st Contact Info) Description 04/02/2025 10:30 AM EST Clinical Support [facility] Hematology/BMT and Cellular Therapy Program [address] [phone] 04/02/2025 11:00 AM EST Office Visit [facility] Hematology/BMT and Cellular Therapy Program [address] [phone] Zonia Hoffman, RODDY 800 [facility] [address] [place] [phone] documented as of this encounter Procedures Procedure [...] Type Bone Marrow 01/20/2025 12:21 PM EDT [facility] Clinical Indication Myelodysplastic Syndrome 01/20/2025 12:21 PM EDT [facility] Specimen Adequacy Adequate 025 12:21 PM EDT [facility] Chromosome Analysis Result Giemsa-banded metaphase cells from unstimulated bone marrow cultures showed the following chromosome pattern: 43~44,X,-X,add(5)( q23),del(5)(q13q33 ),todd(7)ins?(7)(q1 1.2q11.2)t(7;12)(q 11.2;q13),-12,todd( 17)add(17)(p13.2)a dd(17)(q21)[16]/88 ,XX,idemx2[cp3]/46 ,XY[1] 01/20/2025 12:21 PM EDT [facility] Interpretation Abnormal female chromosome analysis. 95% of metaphase cells analyzed showed clonal abnormalities consistent with this patient's previous abnormal results (see [id number]). Clinical correlation is recommended. Note: Per [employer] (CAP) requirement an additional karyotype was performed and charged due to the presence of clonal abnormalities. # cells counted = 20 # cells analyzed = 20 # cells karyotyped = 3 Band resolution: 400-450 01/20/2025 12:21 PM EDT [facility] Pathologist Signature Reviewed by: Corey Tejada 01/20/2025 12:21 PM EDT [facility] Bone Marrow Non-blood Collection / Unknown 01/12/2025 9:55 AM EDT 01/12/2025 12:37 PM EDT us New Mckinney MD LAB CYTOGENETICS ORDERABLES F inal Result [facility] [address] [place] [address] * Leukemia/Lymphoma - Immunophenotyping by Flow Cytometry (01/12/2025 9:55 AM EDT) Clinical Indication MDS 01/12/2025 4:19 PM EDT [facility] Flow Cytometry Interpretation APPROXIMATELY 27% MYELOID BLASTS EXPRESSING CD34, CD117, VARIABLE CD33, PARTIAL CD56, VARIABLE HLA-DR, PARTIAL DIM CD7, CD38 AND DIM CD45, SEE COMMENT, BBONE MARROW ASPIRATE. 01/12/2025 4:19 PM EDT [facility] Comments Specimen viability is [...] surface light chains 01/12/2025 4:19 PM EDT [facility] Disclaimer This test was developed and its performance characteristics determined by the Immuno-Molecular Pathology Laboratory at the [facility]. It has not been cleared or [...] clinical laboratory testing. 01/12/2025 4:19 PM EDT [facility] Pathologist Signature Reviewed by: Asad Hartman MD 01/12/2025 4:19 PM EDT [facility] MRD Indicated Test Not Indicated 4:19 PM EDT [facility] Bone Marrow Specimen from bone marrow obtained by aspiration / Unknown Non-blood Collection / Unknown 01/12/2025 9:55 AM EDT 01/12/2025 1:48 PM EDT us New Mckinney MD LAB FLOW CYTOMETRY ORDERABLES Final Result [facility] [address] [place] [address] * Bone marrow exam (01/12/2025 9:55 AM EDT) Case Report Bone Marrow Case: [id number] Authorizing Provider: New Mckinney MD Collected: 01/12/2025 0955 Ordering Location: [facility] Hematology/BMT and Received: 01/12/2025 1143 Cellular Therapy Program Pathologist: Asad Hartman MD Specimens: A) - Bone Marrow Aspirate, left B) - Bone Marrow Biopsy, left C) - Peripheral Blood for Bone Marrow 5:16 PM EDT [facility] Cytogenetics Report, Addendum Chromosome Analysis Result: Giemsa-banded metaphase cells from unstimulated bone marrow cultures showed the following chromosome pattern: 43~44,X,-X,add(5)( q23),del(5)(q13q33 ),tdod(7)ins?(7)(q1 1.2q11.2)t(7;12)(q 11.2;q13),-12,todd( 17)add(17)(p13.2)a dd(17)(q21)[16]/88 ,XX,idemx2[cp3]/46 ,XY[1] Interpretation: Abnormal female chromosome analysis. 95% of metaphase cells analyzed showed clonal abnormalities consistent with this patient's previous abnormal results (see [facility]-[id number]). 5:16 PM EDT [facility] [...] RING SIDEROBLASTS, SEE COMMENT. 5:16 PM EDT [facility] at 0941 EDT Comment The discrepancy between blasts percentage by morphologic assessment and flow cytometric analysis is due to erythroid precursors that constitute majority of bone marrow cellularity and are removed by flow cytometry. 5:16 PM EDT [facility] Clinical Information MDS 01/14 5:16 PM EDT [facility] [...] cells. Platelets are decreased. 5:16 PM EDT [facility] Bone Marrow Differential BONE MARROW DIFFERENTIAL: 300 cells Normal Patient Neutrophils 15-50 12 Metamyelocytes 4-19 0 Myelocytes 1-18 1 Promyelocytes 1-8 0 Blasts 0-2 7 Monocytes 0-5 7 Erythroid 16-38 61 Lymphocytes 3-24 7 Eosinophils 0-6 3 Basophils 0-2 0 Plasma cells 0-4 2 Other 5:16 PM T [facility] Aspirate Smear The bone [...] 50% of erythroid precursors. 5:16 PM T [facility] Core Biopsy CELLULARITY: Variably [...] Bony trabeculae are normal. 5:16 PM T [facility] Special and Immunohistochemical Stains [...] the [facility], [address] [place] [address]. All tests reported here, except those addressing [...] negativity on decalcified specimens. 5:16 PM T [facility] Flow Cytometry Interpretation Flow cytometric analysis demonstrates approximately 27% population of myeloid blasts in this patient with history of myelodysplastic syndrome; expressing CD34, CD117, variable CD33, partial CD56, variable HLA-DR, partial dim CD7, CD38 and dim CD45 ([id number]). 5:16 PM T [facility] Gross Description B. LEFT A single specimen is received in formalin labeled bone marrow biopsy left posterior iliac crest and consists of 1 piece(s) of red/white tissue measuring 0.9 cm in length 0.2 cm in diameter. The specimen is submitted in to Histology for decalcification and routine processing. Cold Time: <1m 5:16 PM [facility] Note: A resident was involved in the service. I attest I examined the relevant preparations for the specimens and confirmed the diagnosis or interpretation. 5:16 PM T [facility] Bone Marrow [...] Final [facility] [address] [place] [address] * (ABNORMAL) CBC and Differential (01/12/2025 9:15 AM EDT) WBC Count 1.31(L) 3.70 - 10.30 10*3/uL LAB HEMATOLOGY METHOD 01/12/2025 9:58 AM EDT [facility] RBC Count 2.70(L) 3.90 - 5.20 10*6/uL LAB HEMATOLOGY METHOD 01/12/2025 9:58 AM EDT [facility] HGB 8.4(L) 11.2 - 15.7 g/dL LAB HEMATOLOGY METHOD 01/12/2025 9:58 AM EDT [facility] HCT 25.0(L) 34.0 - 45.0 % LAB HEMATOLOGY METHOD 01/12/2025 9:58 AM EDT [facility] Platelet Count 31(L) 155 - 369 10*3/uL LAB HEMATOLOGY METHOD 01/12/2025 9:58 AM EDT [facility] MCV 93 79 - 98 fL LAB HEMATOLOGY METHOD 01/12/2025 9:58 AM EDT [facility] MCH 31.1 26.0 - 32.0 pg LAB HEMATOLOGY METHOD 01/12/2025 9:58 AM EDT [facility] MCHC 33.6 30.7 - 35.5 g/dL LAB HEMATOLOGY METHOD 01/12/2025 9:58 AM EDT [facility] RDW 20.0(H) 11.5 - 14.5 % LAB HEMATOLOGY METHOD 01/12/2025 9:58 AM EDT [facility] MPV 8.8 8.8 - 12.5 fL LAB HEMATOLOGY METHOD 01/12/2025 9:58 AM EDT [facility] nRBC 3.1(H) <=0.0 per 100 WBCs LAB HEMATOLOGY METHOD 01/12/2025 9:58 AM EDT [facility] Differential Type Automated LAB HEMATOLOGY METHOD 01/12/2025 9:58 AM EDT [facility] Neutrophils % 19 % LAB HEMATOLOGY METHOD 01/12/2025 9:58 AM EDT [facility] Lymphocytes % 64 % LAB HEMATOLOGY METHOD 01/12/2025 9:58 AM EDT [facility] Monocytes % 15 % LAB HEMATOLOGY METHOD 01/12/2025 9:58 AM EDT [facility] Eosinophils % 2 % LAB HEMATOLOGY METHOD 01/12/2025 9:58 AM EDT [facility] Basophils % 0 % LAB HEMATOLOGY METHOD 01/12/2025 9:58 AM EDT [facility] Immature Granulocytes % 0 % LAB HEMATOLOGY METHOD 01/12/2025 9:58 AM EDT [facility] Neutrophils Absolute 0.25(LL) 1.60 - 6.10 10*3/uL LAB HEMATOLOGY METHOD 01/12/2025 9:58 AM EDT [facility] Lymphocytes Absolute 0.84(L) 1.20 - 3.90 10*3/uL LAB HEMATOLOGY METHOD 01/12/2025 9:58 AM EDT [facility] Monocytes Absolute 0.20(L) 0.30 - 0.90 10*3/uL LAB HEMATOLOGY METHOD 01/12/2025 9:58 AM EDT [facility] Eosinophils Absolute 0.02 0.00 - 0.50 10*3/uL LAB HEMATOLOGY METHOD 01/12/2025 9:58 AM EDT [facility] Basophils Absolute 0.00 0.00 - 0.10 10*3/uL LAB HEMATOLOGY METHOD 01/12/2025 9:58 AM EDT [facility] Immature Granulocytes Absolute 0.00 0.00 - 0.06 10*3/uL LAB HEMATOLOGY METHOD 01/12/2025 9:58 AM EDT [facility] Blood Blood sample taken from central line / Unknown (Port) Long-term Catheter / Unknown 01/12/2025 9:15 AM EDT 01/12/2025 9:31 AM EDT [facility] - 01/12/2025 9:58 AM EDT Therapeutic decision making should be based on absolute values, rather than percentages. us New Mckinney MD LAB BLOOD ORDERABLES Final Re sult [facility] [address] [place] [address] * (ABNORMAL) Comprehensive Metabolic Panel, Plasma (01/12/2025 9:15 AM EDT) Glucose, Plasma 121(H) 74 - 99 mg/dL 01/12/2025 10:02 AM EDT [facility] BUN, Plasma 24(H) 8 - 23 mg/dL 01/12/2025 10:02 AM EDT [facility] Creatinine, Plasma 1.19(H) 0.60 - 1.10 mg/dL 01/12/2025 10:02 AM EDT [facility] BUN/Creatinine Ratio 20 01/12/2025 10:02 AM EDT [facility] Sodium, Plasma 138 136 - 145 mmol/L 01/12/2025 10:02 AM EDT [facility] Potassium, Plasma 3.9 3.6 - 4.9 mmol/L 01/12/2025 10:02 AM EDT [facility] Chloride, Plasma 105 97 - 107 mmol/L 01/12/2025 10:02 AM EDT [facility] CO2, Plasma 21(L) 22 - 29 mmol/L 01/12/2025 10:02 AM EDT [facility] Anion Gap 12 6 - 16 mmol/L 01/12/2025 10:02 AM EDT [facility] Total Calcium, Plasma 9.7 8.9 - 10.2 mg/dL 01/12/2025 10:02 AM EDT [facility] Total Protein 6.1(L) 6.3 - 7.9 g/dL 01/12/2025 10:02 AM EDT [facility] Albumin, Plasma 3.9 3.5 - 5.2 g/dL 01/12/2025 10:02 AM EDT [facility] AST, Plasma 28 10 - 35 U/L 01/12/2025 10:02 AM EDT [facility] ALT, Plasma 12 10 - 35 U/L 01/12/2025 10:02 AM EDT [facility] Alkaline Phosphatase, Plasma 43(L) 46 - 142 U/L 01/12/2025 10:02 AM EDT [facility] Total Bilirubin, Plasma 0.5 0.2 - 1.1 mg/dL 01/12/2025 10:02 AM EDT [facility] eGFRcr 48.1 mL/min/1.7 3m*2 01/12/2025 10:02 AM EDT [facility] Comment:Reported eGFRcr in m L/min/1.73m2 is based the CKD-EPI 2020 equation that does not use a race coefficient. Blood Blood sample taken from central line / Unknown (Port) Long-term Catheter / Unknown 01/12/2025 9:15 AM EDT 01/12/2025 9:33 AM EDT us New Mckinney MD LAB BLOOD ORDERABLES Final Re sult [facility] [address] [place] [address] documented in this encounter Visit Diagnoses Diagnosis [...] as of this encounter Care Teams Supervisor [employer] Relationship Specialty Start Date End Date Jevon Vazquez MD [address] [place] [address] #1 #1 JOSEP [place] [address] PCP - General 03/23/22 documented as of this encounter
--- OUTSIDE RECORDS SUMMARY | 2025-01-27 14:00 | XMS_ITS | Encounter Summary ---
Author Organization Healthcare Address [address] [place] [address] Care Team Providers Care Aeronautical Project Engineer Name Role Phone Jevon Vazquez MD Primary Care Provider [phone] Reason for Visit * Reason Comments Labs Port Flush Encounter Details Date Type Department Care Team ([facility] Contact Info) Description 01/27/2025 3:00 PM EDT Clinical Support [facility] Hematology/BMT and Cellular Therapy Program [address] [place] [phone] Oscar Cortez, RN Social History Tobacco Use [...] [facility]) Description 04/02/2025 10:30 AM EST Clinical Support [facility]ematology/BMT and Cellular Therapy Program [address] [phone] 04/02/2025 11:00 AM EST Office Visit [facility] Hematology/BMT and Cellular Therapy Program [address] [phone] Zonia Hoffman, DRAPERY COUNSELOR 800 [facility] [address] [place] [phone] documented as of this encounter Visit Diagnoses Not on filedocumented in this encounter Additional Health Concerns Assessment Noted Time A fall risk assessment has been complete d for the patient 01/27/2025 3:25 PM EDT A Body Mass Index follow-up plan has been documented for the patient 05/28/2024 1:52 PM EST documented as of this encounter Care Teams Aeronautical Project Engineer Relationship Specialty Start Date End Date Jevon Vazquez MD [address] [place] [address] #1 #1 [place] [phone] PCP - General 03/23/22 documented as of this encounter
--- OUTSIDE RECORDS SUMMARY | 2025-01-27 14:30 | XMS_ITS | Encounter Summary ---
Author Organization [facility] Address [address] 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) New Mckinney MD [address] [address] Phone: tel: fax: [place] [address] Phone: tel: Referral ID Status Reason Start Date Expiration Date Visits Requested Visits Authorized [id number] Authorized Specialty Services Required 5 07/29/2026 1 1 * Consultation (Urgent) - Authorized Specialty Diagnoses / Procedures Referred By Contac t Referred To Contact Medical Oncology Diagnoses 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) New Mckinney MD [address] [place] [phone] Phone: tel: fax: [facility] [address] [place] [address] Phone: tel: Referral ID Status Reason Start Date Expiration Date Visits Requested Visits Authorized [id number] Authorized Specialty Services Required 5 07/29/2026 1 1 Encounter Details Date Type Department Care Team (Latest Contact Info) Description 01/27/2025 3:30 PM EDT Office Visit [facility] Hematology/BMT and Cellular Therapy Program [address] [place] [place] [address] New Mckinney MD 800 [facility] [address] [place] [address] Encounter for antineoplastic immunotherapy (Primary [...] k/??L. 12/2023- seen by Dr. Manzano in [facility] for evaluation of anemia and lymphocytosis. [...] interphase cells examined show a deletion of Q1R243. Next generation sequencing: Abnormal: TP53 (c.814G>A; p.Lee665Ahp) frequency 45%, DMNT3A (c.1522delC; p.[id number]) frequency 48%, RUNX1 (c.336_338delGCC; p.Wkr026ert) frequency 35% Azacitidine + Venetoclax Cycle 1: [...] 5x/week monthly. - Will send referrals to [facility] and [facility] for clinical trial evaluations. - Continue local lab checks MWF at 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 Check CBC x 3 times/week at [facility] Labs reviewed today, Hgb 7.7 , [...] Gerardo Pandey D.O. Hematology and Oncology Fellow [facility] Patient care and management discussed with [...] understand that therapeutic options are limited, and bozfg-px-nyna discussions remain essential moving forward. We will start oral decitabine and refer to [facility] and [facility] for clinical trial evaluations * Progress Notes [...] Cycle 2: 03/22/24 Assessment/Plan: Rx sent to [facility]. Refills due 02/2025. Patient will return to [...] Team ([facility] st Contact Info) Description 04/02/2025 10:30 AM EST Clinical Support [facility] Hematology/BMT and Cellular Therapy Program [address] [place] [phone] 04/02/2025 11:00 AM EST Office Visit [facility] Hematology/BMT and Cellular Therapy Program [address] [phone] Zonia Hoffman, NETWORK ENGINEERING ADVISOR 800 [facility] [address] [place] [phone] Scheduled Referrals Name Type Priority Associated Diagnoses [...] - 99 mg/dL 01/27/2025 4:26 PM EDT [facility] BUN, Plasma 22 8 - 23 mg/dL 01/27/2025 4:26 PM EDT [facility] Creatinine, Plasma 1.10 0.60 - 1.10 mg/dL 01/27/2025 4:26 PM EDT [facility] BUN/Creatinine Ratio 20 01/27/2025 4:26 PM EDT [facility] Sodium, Plasma 138 136 - 145 mmol/L 01/27/2025 4:26 PM EDT [facility] Potassium, Plasma 4.6 3.6 - 4.9 mmol/L 01/27/2025 4:26 PM EDT [facility] Chloride, Plasma 106 97 - 107 mmol/L 01/27/2025 4:26 PM EDT [facility] CO2, Plasma 22 22 - 29 mmol/L 01/27/2025 4:26 PM EDT [facility] Anion Gap 10 6 - 16 mmol/L 01/27/2025 4:26 PM EDT [facility] Total Calcium, Plasma 9.6 8.9 - 10.2 mg/dL 01/27/2025 4:26 PM EDT [facility] Total Protein 6.2(L) 6.3 - 7.9 g/dL 01/27/2025 4:26 PM EDT [facility] Albumin, Plasma 3.9 3.5 - 5.2 g/dL 01/27/2025 4:26 PM EDT [facility] AST, Plasma 33 10 - 35 U/L 01/27/2025 4:26 PM EDT [facility] ALT, Plasma 11 10 - 35 U/L 01/27/2025 4:26 PM EDT [facility] Alkaline Phosphatase, Plasma 43(L) 46 - 142 U/L 01/27/2025 4:26 PM EDT [facility] Total Bilirubin, Plasma 0.5 0.2 - 1.1 mg/dL 01/27/2025 4:26 PM EDT [facility] eGFRcr 52.8 mL/min/1.7 3m*2 01/27/2025 4:26 PM EDT [facility] Comment:Reported eGFRcr in m L/min/1.73m2 is based the CKD-EPI 2020 equation that does not use a race coefficient. Blood Blood sample taken from central line / Unknown (Port) Long-term Catheter / Unknown 01/27/2025 3:00 PM EDT 01/27/2025 3:54 PM EDT us New Mckinney MD LAB BLOOD ORDERABLES Final Re sult [facility] [address] [place] [address] * (ABNORMAL) CBC and Differential (01/27/2025 3:00 PM EDT) WBC Count 1.22(L) 3.70 - 10.30 10*3/uL LAB HEMATOLOGY METHOD 01/27/2025 3:21 PM EDT [facility] RBC Count 2.90(L) 3.90 - 5.20 10*6/uL LAB HEMATOLOGY METHOD 01/27/2025 3:21 PM EDT [facility] HGB 8.9(L) 11.2 - 15.7 g/dL LAB HEMATOLOGY METHOD 01/27/2025 3:21 PM EDT [facility] HCT 26.3(L) 34.0 - 45.0 % LAB HEMATOLOGY METHOD 01/27/2025 3:21 PM EDT [facility] Platelet Count 23(L) 155 - 369 10*3/uL LAB HEMATOLOGY METHOD 01/27/2025 3:21 PM EDT [facility] MCV 91 79 - 98 fL LAB HEMATOLOGY METHOD 01/27/2025 3:21 PM EDT [facility] MCH 30.7 26.0 - 32.0 pg LAB HEMATOLOGY METHOD 01/27/2025 3:21 PM EDT [facility] MCHC 33.8 30.7 - 35.5 g/dL LAB HEMATOLOGY METHOD 01/27/2025 3:21 PM EDT [facility] RDW 17.7(H) 11.5 - 14.5 % LAB HEMATOLOGY METHOD 01/27/2025 3:21 PM EDT [facility] MPV 9.0 8.8 - 12.5 fL LAB HEMATOLOGY METHOD 01/27/2025 3:21 PM EDT [facility] nRBC 2.5(H) <=0.0 per 100 WBCs LAB HEMATOLOGY METHOD 01/27/2025 3:21 PM EDT [facility] Differential Type Automated LAB HEMATOLOGY METHOD 01/27/2025 3:21 PM EDT [facility] Neutrophils % 9 % LAB HEMATOLOGY METHOD 01/27/2025 3:21 PM EDT [facility] Lymphocytes % 78 % LAB HEMATOLOGY METHOD 01/27/2025 3:21 PM EDT [facility] Monocytes % 12 % LAB HEMATOLOGY METHOD 01/27/2025 3:21 PM EDT [facility] Eosinophils % 1 % LAB HEMATOLOGY METHOD 01/27/2025 3:21 PM EDT [facility] Basophils % 0 % LAB HEMATOLOGY METHOD 01/27/2025 3:21 PM EDT [facility] Immature Granulocytes % 0 % LAB HEMATOLOGY METHOD 01/27/2025 3:21 PM EDT [facility] Neutrophils Absolute 0.11(LL) 1.60 - 6.10 10*3/uL LAB HEMATOLOGY METHOD 01/27/2025 3:21 PM EDT [facility] Lymphocytes Absolute 0.95(L) 1.20 - 3.90 10*3/uL LAB HEMATOLOGY METHOD 01/27/2025 3:21 PM EDT [facility] Monocytes Absolute 0.15(L) 0.30 - 0.90 10*3/uL LAB HEMATOLOGY METHOD 01/27/2025 3:21 PM EDT [facility] Eosinophils Absolute 0.01 0.00 - 0.50 10*3/uL LAB HEMATOLOGY METHOD 01/27/2025 3:21 PM EDT [facility] Basophils Absolute 0.00 0.00 - 0.10 10*3/uL LAB HEMATOLOGY METHOD 01/27/2025 3:21 PM EDT [facility] Immature Granulocytes Absolute 0.00 0.00 - 0.06 10*3/uL LAB HEMATOLOGY METHOD 01/27/2025 3:21 PM EDT [facility] Blood Blood sample taken from central line / Unknown (Port) Long-term Catheter / Unknown 01/27/2025 3:00 PM EDT 01/27/2025 3:12 PM EDT Narrative [facility] - 01/27/2025 3:21 PM EDT Therapeutic decision making should be based on absolute values, rather than percentages. New Mckinney MD LAB BLOOD ORDERABLES Final Re sult [facility] [address] [place] [address] documented in this encounter Visit Diagnoses Diagnosis [...] documented as of this encounter Care Teams Clay Temperer Relationship Specialty Start Date End Date Jevon Vazquez MD [address] [place] [address] #1 #1 [place] [address] PCP - General 03/23/22 documented as of this encounter
--- OUTSIDE RECORDS SUMMARY | 2025-03-03 13:00 | XMS_ITS | Encounter Summary ---
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) Social History Tobacco Use Types Packs/Day Years Used Date Smoking Tobacco: Never Passive Smoke Exposure: Never Smokeless Tobacco: Never Alcohol Use Standard Drinks/Week Comments Never 0 (1 standard drink = 0.6 oz pur e alcohol) PHQ-2 Answer Date Recorded Patient Health Questionnaire-2 Score 0 03/03/2025 Comments No Sex and Gender Information Value Date Recorded Sex Assigned at Not on file Legal Sex Female 8:22 PM EDT Gender Identity Not on file Sexual Orientation Not on file documented as of this encounter Plan of Treatment Upcoming Encounters Date Type Department Care Team ([facility] Contact Info) Description 04/02/2025 10:30 AM EST Clinical Support [facility] Hematology/BMT and Cellular Therapy Program [address] [phone] 04/02/2025 11:00 AM EST Office Visit [facility] CC Hematology/BMT and Cellular Therapy Program [address] [phone] Zonia Hoffman, MUSIC PROMOTER 800 [facility] [address] [place] [phone] documented as of this encounter Procedures Procedure Name Priority Date/Time Associated Diagnosis Comments CBC WITH AUTO DIFFERENTIAL Routine 03/03/2025 12:51 PM EST 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) COMPREHENSIVE METABOLIC PANEL, PLASMA Routine 03/03/2025 12:51 PM EST 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) documented in this encounter Results * (ABNORMAL) CBC and Differential (03/03/2025 12:51 PM EST) WBC Count 0.62(LL) 3.70 - 10.30 10*3/uL LAB HEMATOLOGY METHOD 03/03/2025 1:37 PM EST [facility] RBC Count 3.19(L) 3.90 - 5.20 10*6/uL LAB HEMATOLOGY METHOD 03/03/2025 1:37 PM EST [facility] HGB 9.2(L) 11.2 - 15.7 g/dL LAB HEMATOLOGY METHOD 03/03/2025 1:37 PM EST [facility] HCT 27.1(L) 34.0 - 45.0 % LAB HEMATOLOGY METHOD 03/03/2025 1:37 PM EST [facility] Platelet Count 10(LL) 155 - 369 10*3/uL LAB HEMATOLOGY METHOD 03/03/2025 1:37 PM EST [facility] MCV 85 79 - 98 fL LAB HEMATOLOGY METHOD 03/03/2025 1:37 PM EST [facility] MCH 28.8 26.0 - 32.0 pg LAB HEMATOLOGY METHOD 03/03/2025 1:37 PM EST [facility] MCHC 33.9 30.7 - 35.5 g/dL LAB HEMATOLOGY METHOD 03/03/2025 1:37 PM EST [facility] RDW 15.0(H) 11.5 - 14.5 % LAB HEMATOLOGY METHOD 03/03/2025 1:37 PM EST [facility] MPV LAB HEMATOLOGY METHOD 03/03/2025 1:37 PM EST [facility] Comment:Not Measured nRBC 0.0 <=0.0 per 100 WBCs LAB HEMATOLOGY METHOD 03/03/2025 1:37 PM EST [facility] Differential Type Automated LAB HEMATOLOGY METHOD 03/03/2025 1:37 PM EST [facility] Neutrophils % 2 % LAB HEMATOLOGY METHOD 03/03/2025 1:37 PM EST [facility] Lymphocytes % 91 % LAB HEMATOLOGY METHOD 03/03/2025 1:37 PM EST [facility] Monocytes % 7 % LAB HEMATOLOGY METHOD 03/03/2025 1:37 PM EST [facility] Eosinophils % 0 % LAB HEMATOLOGY METHOD 03/03/2025 1:37 PM EST [facility] Basophils % 0 % LAB HEMATOLOGY METHOD 03/03/2025 1:37 PM EST [facility] Immature Granulocytes % 0 % LAB HEMATOLOGY METHOD 03/03/2025 1:37 PM EST [facility] Neutrophils Absolute 0.01(LL) 1.60 - 6.10 10*3/uL LAB HEMATOLOGY METHOD 03/03/2025 1:37 PM EST [facility] Lymphocytes Absolute 0.57(L) 1.20 - 3.90 10*3/uL LAB HEMATOLOGY METHOD 03/03/2025 1:37 PM EST [facility] Monocytes Absolute 0.04(L) 0.30 - 0.90 10*3/uL LAB HEMATOLOGY METHOD 03/03/2025 1:37 PM EST [facility] Eosinophils Absolute 0.00 0.00 - 0.50 10*3/uL LAB HEMATOLOGY METHOD 03/03/2025 1:37 PM EST [facility] Basophils Absolute 0.00 0.00 - 0.10 10*3/uL LAB HEMATOLOGY METHOD 03/03/2025 1:37 PM EST [facility] Immature Granulocytes Absolute 0.00 0.00 - 0.06 10*3/uL LAB HEMATOLOGY METHOD 03/03/2025 1:37 PM EST [facility] Blood Venous blood specimen / Unknown (Port) Long-term Catheter / Unknown 03/03/2025 12:51 PM EST 03/03/2025 1:11 PM EST [facility] - 03/03/2025 1:37 PM EST Therapeutic decision making should be based on absolute values, rather than percentages. us New Mckinney MD LAB BLOOD ORDERABLES Final Re sult [facility] [address] [place] [phone] * (ABNORMAL) Comprehensive Metabolic Panel, Plasma (03/03/2025 12:51 PM EST) Glucose, Plasma 179(H) 74 - 99 mg/dL 03/03/2025 1:30 PM [facility] BUN, Plasma 20 8 - 23 mg/dL 03/03/2025 1:30 PM EST [facility] Creatinine, Plasma 0.87 0.60 - 1.10 mg/dL 03/03/2025 1:30 PM EST [facility] BUN/Creatinine Ratio 23 03/03/2025 1:30 PM EST [facility] Sodium, Plasma 136 136 - 145 mmol/L 03/03/2025 1:30 PM [facility] Potassium, Plasma 4.2 3.6 - 4.9 mmol/L 03/03/2025 1:30 PM [facility] Chloride, Plasma 105 97 - 107 mmol/L 03/03/2025 1:30 PM [facility] CO2, Plasma 18(L) 22 - 29 mmol/L 03/03/2025 1:30 PM [facility] Anion Gap 13 6 - 16 mmol/L 03/03/2025 1:30 PM [facility] Total Calcium, Plasma 9.0 8.9 - 10.2 mg/dL 03/03/2025 1:30 PM [facility] Total Protein 6.1(L) 6.3 - 7.9 g/dL 03/03/2025 1:30 PM [facility] Albumin, Plasma 3.1(L) 3.5 - 5.2 g/dL 03/03/2025 1:30 PM [facility] AST, Plasma 12 10 - 35 U/L 03/03/2025 1:30 PM [facility] ALT, Plasma 5(L) 10 - 35 U/L 03/03/2025 1:30 PM [facility] Alkaline Phosphatase, Plasma 41(L) 46 - 142 U/L 03/03/2025 1:30 PM [facility] Total Bilirubin, Plasma 0.6 0.2 - 1.1 mg/dL 03/03/2025 1:30 PM [facility] eGFRcr 70.0 mL/min/1.7 3m*2 03/03/2025 1:30 PM EST [facility] Comment:Reported eGFRcr in m L/min/1.73m2 is based the CKD-EPI 2020 equation that does not use a race coefficient. 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
--- OUTSIDE RECORDS SUMMARY | 2025-03-03 13:30 | XMS_ITS | Encounter Summary ---
Author Organization Healthcare Address [address] [place] [address] Care Team Providers Care Professional Employer Consultant Name Role Phone Jevon Vazquez MD Primary Care Provider [phone] Reason for Visit * Reason Comments Acute Myeloid Leukemia Encounter Details Date Type Department Care Team ([facility] Contact Info) Description 03/03/2025 1:30 PM EST Office Visit [facility] Hematology/BMT and Cellular Therapy Program [address] [phone] Zonia Hoffman, ENVIRONMENTAL GEOLOGIST 800 [facility] [address] [place] [address] Acute myeloid leukemia not having achieved remission [...] [facility]. Refills due 03/2025. Patient will return to clinic in 4 weeks. Will follow-up at that time. * Progress Notes - Zonia Hoffman, ENVIRONMENTAL GEOLOGIST - 03/03/2025 1:30 PM EST [facility] Division of Hematology and Blood & Marrow [...] XY[1] Next generation sequencing: TP53 - c.814G>A; p.Iqq482Kkh - Pathogenic - VAF 45% TP53 - c.559G>A; p.[id number] - Pathogenic - VAF 49% DNMT3A - c.1522delC; p.[id number] - Pathogenic - VAF 48% RUNX1 - c.336_338delGCC; p.Icn980pzg - Pathogenic - VAF 35% 02/05/2024- started [...] water rinses. If the condition worsens, inform Jroge so that a palliative care team can be arranged for home visits. RTC 4 weeks prior to next cycle of Inqovi Pancytopenia related to chemotherapy/AML. Check CBC x 3 times/week at [facility] Labs reviewed today, Hgb 7.7 [...] [facility]EMAT[facility] AND CELLULAR THERAPY [facility]GRAM [address] [place] [phone] [1] Past Medical History: Diagnosis Date Degenerative [...] Hematology/BMT and Cellular Therapy Program [address] [place] [address] 04/02/2025 11:00 AM EST Office Visit [facility] Hematology/BMT and Cellular Therapy Program [address] [phone] Zonia Hoffman, ENVIRONMENTAL GEOLOGIST 800 [facility] [address] [place] [phone] documented as of this encounter Visit Diagnoses [...] as of this encounter Care Teams Professional Employer Consultant Relationship Specialty Start Date End Date Jevon Vazquez MD [address] [place] [address] #1 #1 [place] [address] PCP - General 03/23/22 documented as of this encounter
[2025-03-06] VITALS (18 sets, daily range): BP systolic 104–135; BP diastolic 45–76; PULSE 81–96; RESP 20; TEMP 36.9–37.5; O2SAT 99–100; BMI 20.5
--- OUTSIDE RECORDS SUMMARY | 2025-03-06 09:37 | XMS_ITS | Encounter Summary ---
Author Organization [facility] Address [address] [place] [address] Care Team Providers Care Bulkhead Carpenter Name Role Phone Jevon Vazquez MD Primary Care Provider [phone] Reason for Visit * Reason Comments Med Refill Encounter Details Date Type Department Care Team ([facility] Contact Info) Description 02/27/2025 Refill P[facility] Hematology/BMT and Cellular Therapy Program [address] [phone] Zonia Hoffman, MANAGER FACILITY 800 [facility] [address] [place] [phone] Social History Tobacco Use Types Packs/Day Years [...] ([facility] Contact Info) Description 04/02/2025 10:30 AM EST Clinical Support PAV CC Hematology/BMT and Cellular Therapy Program [address] [phone] 04/02/2025 11:00 AM EST Office Visit P[facility] CC Hematology/BMT and Cellular Therapy Program [address] [phone] Zonia Hoffman, MANAGER FACILITY 800 [facility] [address] [place] [address] documented as of this encounter Visit Diagnoses Not on filedocumented in this encounter Additional Health Concerns Assessment Noted Time A fall risk assessment has been complete d for the patient 01/27/2025 3:25 PM EDT A Body Mass Index follow-up plan has been documented for the patient 05/28/2024 1:52 PM EST documented as of this encounter Care Teams Bulkhead Carpenter Relationship Specialty Start Date End Date Jevon Vazquez MD [address] [place] [address] [address] [place] [address] PCP - General 03/23/22 documented as of this encounter
--- OUTSIDE RECORDS SUMMARY | 2025-03-06 09:37 | XMS_ITS | Encounter Summary ---
Author Organization [facility] Address [address] [place] [address] Care Team Providers Care Compliance Administrator Name Role Phone Jevon Vazquez MD Primary Care Provider [phone] Reason for Visit * Reason Comments Med Refill Encounter Details Date Type Department Care Team ([facility] Contact Info) Description 02/02/2025 Refill PAV CC Hematology/BMT and Cellular Therapy Program [address] [phone] Zonia Hoffman, SWIMMING POOL MAINTENANCE 800 [facility] [address] [place] [phone] Social History Tobacco Use Types Packs/Day Years [...] Care Team ([facility] Contact Info) Description 04/02/2025 10:30 AM EST Clinical Support P[facility] CC Hematology/BMT and Cellular Therapy Program [address] [phone] 04/02/2025 11:00 AM EST Office Visit P[facility] CC Hematology/BMT and Cellular Therapy Program [address] [phone] Zonia Hoffman, SWIMMING POOL MAINTENANCE 800 [facility] [address] [place] [address] documented as of this encounter Visit Diagnoses Not on filedocumented in this encounter Additional Health Concerns Assessment Noted Time A fall risk assessment has been complete d for the patient 01/27/2025 3:25 PM EDT A Body Mass Index follow-up plan has been documented for the patient 05/28/2024 1:52 PM EST documented as of this encounter Care Teams Compliance Administrator Relationship Specialty Start Date End Date Jevon Vazquez MD [address] [place] [address] [address] [place] [address] PCP - General 03/23/22 documented as of this encounter
--- OUTSIDE RECORDS SUMMARY | 2025-03-06 09:37 | XMS_ITS ---
Author Organization [facility] Address [address] [place] [address] Care Team Providers Care Portal Administrator Name Role Phone Jevon Vazquez MD Primary Care Provider [phone] Active Problems Problem Noted Date Diagnosed Date [...]
--- OUTSIDE RECORDS SUMMARY | 2025-03-06 09:37 | XMS_ITS | Encounter Summary ---
Author Organization [facility] Address [address] [place] [address] Care Team Providers Care Water Jet Operator Name Role Phone Jevon Vazquez MD Primary Care Provider [phone] Reason for Visit * Reason Comments Med Refill Encounter Details Date Type Department Care Team ([facility] Contact Info) Description 01/30/2024 Refill PAV CC Hematology/BMT and Cellular Therapy Program [address] [phone] New Mckinney MD 800 [facility] [address] [place] [phone] Social History Tobacco Use Types Packs/Day Years [...] [facility]) Description 04/02/2025 10:30 AM EST Clinical Support PAV CC Hematology/BMT and Cellular Therapy Program [address] [phone] 04/02/2025 11:00 AM EST Office Visit PAV CC Hematology/BMT and Cellular Therapy Program [address] [phone] Zonia Hoffman, TUNNELING MACHINE OPERATOR 800 [facility] [address] [place] [address] documented as of this encounter Visit Diagnoses Not on filedocumented in this encounter Additional Health Concerns Assessment Noted Time A fall risk assessment has been complete d for the patient 01/11/2024 9:16 AM EDT A Body Mass Index follow-up plan has been documented for the patient 01/21/2024 6:16 AM EDT documented as of this encounter Care Teams Water Jet Operator Relationship Specialty Start Date End Date Jevon Vazquez MD [address] [place] [address] [address] [place] [address] PCP - General 03/23/22 documented as of this encounter
--- OUTSIDE RECORDS SUMMARY | 2025-03-06 09:37 | XMS_ITS | Encounter Summary ---
Author Organization Healthcare Address [address] [place] [address] Care Team Providers Care Director Of Securities And Real Estate Name Role Phone Jevon Vazquez MD Primary Care Provider [phone] Encounter Details Date Type Department Care Team [...] Hematology/BMT and Cellular Therapy Program [address] [phone] 04/02/2025 11:00 AM EST Office Visit P[facility] CC Hematology/BMT and Cellular Therapy Program [address] [phone] Zonia Hoffman, BALANCE SCREWHEAD POLISHER 800 [facility] [address] [place] [phone] documented as of this encounter Visit Diagnoses Not on filedocumented in this encounter Additional Health Concerns Assessment Noted Time A fall risk assessment has been complete d for the patient 01/27/2025 3:25 PM EDT A Body Mass Index follow-up plan has been documented for the patient 05/28/2024 1:52 PM EST documented as of this encounter Care Teams Director Of Securities And Real Estate Relationship Specialty Start Date End Date Jevon Vazquez MD [address] [place] [address] [address]1 [address]1 [place] [address] PCP - General 03/23/22 documented as of this encounter
--- OUTSIDE RECORDS SUMMARY | 2025-03-06 09:37 | XMS_ITS | Encounter Summary ---
Author Organization Healthcare Address [address] [place] [address] Care Team Providers Care Medical Scribe Name Role Phone Jevon Vazquez MD Primary Care Provider [phone] Encounter Details Date Type Department Care Team ([facility] Contact Info) Description 02/25/2025 Telephone PAV CC Hematology/BMT and Cellular Therapy Program [address] [phone] Astrid South RN [facility] None Social History Tobacco Use Types Packs/Day Years [...] Department Care Team (Late Contact Info) Description 04/02/2025 10:30 AM EST Clinical Support PAV CC Hematology/BMT and Cellular Therapy Program [address] [phone] 04/02/2025 11:00 AM EST Office Visit PAV CC Hematology/BMT and Cellular Therapy Program [address] [phone] Zonia Hoffman, ELECTRONIC ENGRAVER 800 [facility] [address] [place] [phone] documented as of this encounter Visit Diagnoses Not on filedocumented in this encounter Additional Health Concerns Assessment Noted Time A fall risk assessment has been complete d for the patient 01/27/2025 3:25 PM EDT A Body Mass Index follow-up plan has been documented for the patient 05/28/2024 1:52 PM EST documented as of this encounter Care Teams Medical Scribe Relationship Specialty Start Date End Date Jevon Vazquez MD [address] [place] [address] [address]1 [address]1 [place] [address] PCP - General 03/23/22 documented as of this encounter
--- OUTSIDE RECORDS SUMMARY | 2025-03-06 09:37 | XMS_ITS | Encounter Summary ---
Author Organization Healthcare Address [address] [place] [address] Care Team Providers Care Systems Lead Name Role Phone Jevon Vazquez MD Primary Care Provider [phone] Encounter Details Date Type Department Care Team [...] Hematology/BMT and Cellular Therapy Program [address] [phone] 04/02/2025 11:00 AM EST Office Visit PAV CC Hematology/BMT and Cellular Therapy Program [address] [phone] Zonia Hoffman, WEIGHMASTER LEAD 800 [facility] [address] [place] [phone] documented as of this encounter Visit Diagnoses Not on filedocumented in this encounter Additional Health Concerns Assessment Noted Time A fall risk assessment has been complete d for the patient 01/27/2025 3:25 PM EDT A Body Mass Index follow-up plan has been documented for the patient 05/28/2024 1:52 PM EST documented as of this encounter Care Teams Systems Lead Relationship Specialty Start Date End Date Jevon Vazquez MD [address] [place] [address] [address]1 [address]1 [place] [address] PCP - General 03/23/22 documented as of this encounter
--- OUTSIDE RECORDS SUMMARY | 2025-03-06 09:38 | XMS_ITS | Encounter Summary ---
Author Organization [facility] Address [address] [place] [address] Care Team Providers Care Camera Prototyping Engineer Name Role Phone Jevon Vazquez MD Primary Care Provider [phone] Encounter Details Date Type Department Care Team ([facility] Contact Info) Description 01/28/2025 Telephone PAV CC Hematology/BMT and Cellular Therapy Program [address] [phone] New Mckinney MD 800 [facility] [address] [place] [phone] Social History Tobacco Use Types Packs/Day Years [...] patient to inform patient of appointment at [place] on 02/04. Patient was informed that a [employer] message will be sent with information. documented in this encounter Plan of Treatment Upcoming Encounters Date Type Department Care Team ([facility] Contact Info) Description 04/02/2025 10:30 AM EST Clinical Support PAV CC Hematology/BMT and Cellular Therapy Program [address] [place] [address] 04/02/2025 11:00 AM EST Office Visit PAV Hematology/BMT and Cellular Therapy Program [address] [place] [address] Zonia Hoffman, STUDENT OFFICER 800 [facility] [address] [place] [phone] documented as of this encounter Visit Diagnoses Not on filedocumented in this encounter Additional Health Concerns Assessment Noted Time A fall risk assessment has been complete d for the patient 01/27/2025 3:25 PM EDT A Body Mass Index follow-up plan has been documented for the patient 05/28/2024 1:52 PM EST documented as of this encounter Care Teams Camera Prototyping Engineer Relationship Specialty Start Date End Date Jevon Vazquez MD [address] [place] [address] #1 #1 [place] [address] PCP - General 03/23/22 documented as of this encounter
--- OUTSIDE RECORDS SUMMARY | 2025-03-06 09:38 | XMS_ITS | Clinical Summary ---
Author Organization [facility] Address [address] [place] [address] Phone Care Team Providers Care Oral Communication Instructor Name Role Phone Jevon Vazquez MD Primary Care Provider [phone] Allergies Active Allergy Reactions Criticality Noted Date [...] Surgeon: Ivan Bartholomew MD; Location: [facility] MAIN OR; Service: Spine Medical History [...] 5.6 % 11/14/2022 2:57 PM EDT PREFERRED [employer] Est. Avg Glucose 148 mg/dL 11/14/2022 2:57 PM EDT [employer] Blood VENOUS BLOOD / Unknown Venipuncture / Unknown 11/11/2022 3:46 PM EDT 11/11/2022 3:55 PM EDT Narrative PREFERRED [facility] - 11/14/2022 2:57 PM EDT REFERENCE RANGE: Normal: 4.0-5.6% Pre-diabetes: 5.7-6.4% Provisional diagnosis of diabetes: >6.4% Hgb F>10% and anything which shortens red cell survival, such as hemolytic anemia, or unstable hemoglobin variants such as HbSS, HbSC, or HbCC, will lower the HbA1c value associated with a given level of glycemic control. us Lexi Maloney DO CHEMISTRY ORDERABLES Final R esult [facility] , [address] [place] [id number] * (ABNORMAL) BASIC METABOLIC PANEL (11/11/2022 3:46 PM EDT) Sodium 136 136 - 145 mmol/L 11/11/2022 4:11 PM EDT [facility] Potassium 3.8 3.5 - 5.0 mmol/L 11/11/2022 4:11 PM EDT [facility] Chloride 102 98 - 107 mmol/L 11/11/2022 4:11 PM EDT [facility] Total CO2 24 22 - 29 mmol/L 11/11/2022 4:11 PM EDT [facility] Anion Gap 10 7 - 16 mmol/L 11/11/2022 4:11 PM EDT [facility] Calcium 10.1 8.8 - 10.4 mg/dL 11/11/2022 4:11 PM EDT [facility] Glucose Lvl 147(H) 82 - 100 mg/dL 11/11/2022 4:11 PM EDT [facility] BUN 15 8 - 23 mg/dL 11/11/2022 4:11 PM EDT [facility] Creatinine 0.82 0.51 - 1.30 mg/dL 11/11/2022 4:11 PM EDT [facility] eGFR (CKD-EPIcr 2021) 76 >=60 mL/min/1.7 3 m2 11/11/2022 4:11 PM EDT [facility] Comment:Estimated GFR was ca lculated using the CKD-EPIcr (2020) equation refit without race. The equation is recommended by the National Kidney Foundation - [place] [employer] of Nephrology Task Force. Blood VENOUS BLOOD / Unknown Venipuncture / Unknown 11/11/2022 3:46 PM EDT 11/11/2022 3:54 PM EDT us Leona Hanna DO CHEMISTRY ORDERABLES Final Res ult [facility] [address] [place] [address] * DX BONE DENSITY AXIAL SKELETON (07/25/2022 9:14 AM EDT) Anatomical Region Laterality Modality Dexa Scan 07/25/2022 Narrative 07/25/2022 3:45 PM EDT Indication: The patient is a female age 65 or older who requires a bone density assessment. Study was performed on De[employer]list 5. Bone Density: Region BMD T-score Z-score [...] Payer (Ef fective 2016-Present) Name:Ashly Hernández Member ID:[id number] Relation to Subscriber:Self Name:Ashly Hernández Subscriber ID:[id number] Payer ID:Not on file Group ID:Not on file Type:Not on file Address: [address] MEDICARE SUPPLEMENT [place]ARE [place] PART A & B MEDICARE ID PART A AND B Member Subscriber Plan / Payer (Ef fective 2016-Present) Name:Ashly Hernández Member ID:[id number] Relation to Subscriber:Self Name:Ashly Hernández Subscriber ID:[id number] Payer ID:Not on file Group ID:Not on file Type:Not on file Address: [address] MEDICARE SUPPLEMENT [employer] MEDICARE [place] PART A AND B [address] MEDICARE SUPPLEMENT Advance Directives For more information, please contact: [phone] * Full Code (Latest Code Status on File) Date Activated Date Inactivated Comments 11/14/2022 6:53 PM 11/16/2022 7:37 PM * Full Code Date Activated Date Inactivated Comments 11/12/2022 5:17 AM 11/14/2022 6:47 PM Care Teams Oral Communication Instructor Relationship Specialty Start Date End Date Jevon Vazquez MD [address] [place] [address] PCP - General Family Medicine 11/10/22
--- OUTSIDE RECORDS SUMMARY | 2025-03-06 09:38 | XMS_ITS | Encounter Summary ---
Author Organization [facility] Address [address] [place] [address] Care Team Providers Care Fabrication Welder Name Role Phone Jevon Vazquez MD Primary Care Provider Encounter Details Date Type Department Care Team ([facility] Contact Info) Description 01/27/2025 Telephone PAV CC Hematology/BMT and Cellular Therapy Program [address] [place] [address] Alyson Vivas RN None None Social History Tobacco Use Types Packs/Day [...] ([facility] Contact Info) Description 04/02/2025 10:30 AM EST Clinical Support PAV CC Hematology/BMT and Cellular Therapy Program 750 [facility], [address] [place] [address] [place] [address] 04/02/2025 11:00 AM EST Office Visit PAV CC Hematology/BMT and Cellular Therapy Program [address] [place] [address] Zonia Hoffman, ELECTRO MECHANICAL DESIGNER 800 [facility] [address] [place] [address] documented as of this encounter Visit Diagnoses [...] Date End Date Jevon Vazquez MD [address] [place] [address] #1 [address] [place] [address] PCP - General 03/23/22 documented as of this encounter
--- OUTSIDE RECORDS SUMMARY | 2025-03-06 09:38 | XMS_ITS | Encounter Summary ---
Author Organization Healthcare Address [address] [place] [address] Care Team Providers Care Mental Health Program Manager Name Role Phone Jevon Vazquez MD Primary Care Provider [phone] Encounter Details Date Type Department Care Team (Latest Contact Info) Description 02/28/2025 Travel Social History Tobacco Use Types Packs/Day [...] Hematology/BMT and Cellular Therapy Program [address] [phone] 04/02/2025 11:00 AM EST Office Visit PAV CC Hematology/BMT and Cellular Therapy Program [address] [phone] Zonia Hoffman, VEGETABLE SPECKER 800 [facility] [address] [place] [phone] documented as of this encounter Visit Diagnoses Not on filedocumented in this encounter Additional Health Concerns Assessment Noted Time A fall risk assessment has been complete d for the patient 01/27/2025 3:25 PM EDT A Body Mass Index follow-up plan has been documented for the patient 05/28/2024 1:52 PM EST documented as of this encounter Care Teams Mental Health Program Manager Relationship Specialty Start Date End Date Jevon Vazquez MD [address] [place] [address] #1 [address]1 [place] [address] PCP - General 03/23/22 documented as of this encounter
--- OUTSIDE RECORDS SUMMARY | 2025-03-06 09:38 | XMS_ITS | Encounter Summary ---
Author Organization [facility] Address [address] [place] [address] Care Team Providers Care Health Services Coordinator Name Role Phone Jevon Vazquez MD Primary Care Provider [phone] Reason for Visit * Reason Comments Med Refill Encounter Details Date Type Department Care Team ([facility] Contact Info) Description 01/07/2025 Refill PAV CC Hematology/BMT and Cellular Therapy Program [address] [phone] Zonia Hoffman, SCREENING UNIT REGISTERED NURSE 800 [facility] [address] [place] [phone] Social History Tobacco Use Types Packs/Day Years [...] ([facility] Contact Info) Description 04/02/2025 10:30 AM EST Clinical Support PAV CC Hematology/BMT and Cellular Therapy Program [address] [phone] 04/02/2025 11:00 AM EST Office Visit PAV CC Hematology/BMT and Cellular Therapy Program [address] [phone] Zonia Hoffman, SCREENING UNIT REGISTERED NURSE 800 [facility] [address] [place] [address] documented as of this encounter Visit Diagnoses Not on filedocumented in this encounter Additional Health Concerns Assessment Noted Time A fall risk assessment has been complete d for the patient 09/30/2024 9:33 AM EDT A Body Mass Index follow-up plan has been documented for the patient 05/28/2024 1:52 PM EST documented as of this encounter Care Teams Health Services Coordinator Relationship Specialty Start Date End Date Jevon Vazquez MD [address] [place] [address] #1 [address] [place] [address] PCP - General 03/23/22 documented as of this encounter
--- OUTSIDE RECORDS SUMMARY | 2025-03-06 09:38 | XMS_ITS | Encounter Summary ---
Author Organization [facility] Address [address] [place] [address] Care Team Providers Care Single Wire Saw Operator Name Role Phone Jevon Vazquez MD Primary Care Provider [phone] Encounter Details Date Type Department Care Team (Late st Contact Info) Description 01/27/2025 Telephone [facility] [address] [place] [phone] Emil Hardy, PharmD None None Social History Tobacco Use Types [...] Valdes, PharmD - 01/28/2025 2:40 PM EDT [facility] Specialty Medication Initial Care Plan Ashly Hernández [...] Injectable, preservative free 03/21/2024 Moderna COVID-19 Vaccine (Cooler Deliverer) 12+ years 06/12/2020, 07/10/2020, 02/18/2021 Selected lab [...] education was provided by clinic [facility]. She denied further education at this [...] Hematology/BMT and Cellular Therapy Program [address] [phone] 04/02/2025 11:00 AM EST Office Visit PAV Hematology/BMT and Cellular Therapy Program [address] [phone] Zonia Hoffman, SPARE PERSON 800 [facility] [address] [place] [phone] documented as of this encounter Visit Diagnoses Not on filedocumented in this encounter Additional Health Concerns Assessment Noted Time A fall risk assessment has been complete d for the patient 01/27/2025 3:25 PM EDT A Body Mass Index follow-up plan has been documented for the patient 05/28/2024 1:52 PM EST documented as of this encounter Care Teams Single Wire Saw Operator Relationship Specialty Start Date End Date Jevon Vazquez MD [address] [place] [address] #1 [address]1 [place] [address] PCP - General 03/23/22 documented as of this encounter
--- OUTSIDE RECORDS SUMMARY | 2025-03-06 09:38 | XMS_ITS | Clinical Summary ---
Author Organization [facility] Address [address] [place] [address] Care Team Providers Care Supervisor Inspection And Testing Name Role Phone Jevon Vazquez MD Primary Care Provider [phone] Allergies No known active allergies Medications amLODIPine [...] Active Additional Information Patient not taking.Reported on 03/03/2025 prochlorperaz ine (Compazine) 10 MG tabletIndicat ions:Acute [...] Active Additional Information Patient not taking.Reported on 03/03/2025 rosuvastatin (Crestor) 5 MG tablet TAKE 1 TABLET BY MOUTH ONCE DAILY AT NIGHT 90 tablet 01/08/20 25 Active Additional Information Patient not taking.Reported on 03/03/2025 Inqovi 35-100 MG tablet tabletIndicat ions: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 02/28/20 Active atorvastatin (Lipitor) 10 MG tablet Take 1 tablet by mouth daily. Active magic mouthwash (lidocaine, diphenhydrami ne, Maalox 1:1:1) Swish and swallow 10 mL every 4 hours as needed for mucositis (mouth sores). Swish and swallow 120 mL 2 03/03/20 Active oxyCODONE (Roxicodone) 5 MG immediate release tablet Take 1 tablet by mouth every 8 hours as needed for severe pain. 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 60 tablet 3 10/30/19 25 025 Discontinued fluconazole (Diflucan) 200 MG tabletIndicat ions:Immunosu ppressed status (CMS/HCC) Take 2 tablets by mouth daily. 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 5 tablet 01/28/20 025 Discontinued potassium chloride CR (K-Tab) 20 MEQ ER tablet Take 1 tablet by mouth twice daily 60 tablet 02/03/20 025 Discontinued magic mouthwash (lidocaine, diphenhydrami ne, Maalox 1:1:1) Swish and swallow 10 mL every 4 hours as needed for mucositis (mouth sores). 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) 03/03/2025 1:00 PM EST Clinical Support [facility] Hematology/BMT and Cellular Therapy Program [address] [place] [address] [phone] Jyoti Kemp 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) 03/03/2025 Telephone [facility]ology/BMT and Cellular Therapy Program [address] [place] [phone] Alyson Vivas, RN 03/03/2025 Telephone [facility] Hematology/BMT and Cellular Therapy Program [address] [place] [phone] Alyson Vivas RN 03/03/2025 Travel 02/28/2025 Travel 02/27/2025 Refill [facility] Hematology/BMT and Cellular Therapy Program [address] [phone] Zonia Hoffman, STORE STOCKER 02/26/2025 Travel 02/25/2025 Travel 02/25/2025 Telephone [facility] Hematology/BMT and Cellular Therapy Program [address] [place] [phone] Astrid South, AKBAR 02/18/2025 Refill [facility]ematology/BMT and Cellular Therapy Program [address] [phone] Zonia Hoffman, STORE STOCKER Immunosuppressed status (CMS/HCC); 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) 02/18/2025 Refill [facility]ematology/BMT and Cellular Therapy Program [address] [place] [phone] New Mckinney MD 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) 02/16/2025 Orders Only [facility] Hematology/BMT and Cellular Therapy Program [address] [place] [phone] 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, RN 02/02/2025 Refill [facility]ology/BMT and Cellular Therapy Program [address] [place] [phone] Zonia Hoffman, STORE STOCKER 01/28/2025 Telephone [facility]ology/BMT and Cellular Therapy Program [address] [place] [phone] New Mckinney MD 01/27/2025 3:30 PM EDT Office Visit [facility]ology/BMT and Cellular Therapy Program [address] [place] [phone] New Mckinney MD Encounter for antineoplastic immunotherapy (Primary Dx); 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); Immunosuppressed status (CMS/HCC) 01/27/2025 3:00 PM EDT Clinical Support [facility] Hematology/BMT and Cellular Therapy Program [address] [phone] Oscar Cortez, RN 01/27/2025 Telephone [facility] [address] [place] [phone] Emil Hardy, PharmD 01/27/2025 Telephone [facility] Hematology/BMT and Cellular Therapy Program [address] [place] [phone] Alyson Vivas, AKBAR 01/27/2025 Travel 01/20/2025 Travel 01/16/2025 Telephone [facility]ology/BMT and Cellular Therapy Program [address] [place] [phone] Daxa Elliott RN 01/12/2025 10:00 AM EDT Procedure Visit [facility]ematology/BMT and Cellular Therapy Program [address] [place] [phone] Rebecca Barrientos PA Myelodysplastic syndrome (CMS/HCC); 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) 01/12/2025 9:30 AM EDT Clinical Support [facility]ematology/BMT and Cellular Therapy Program [address] [place] [phone] 01/12/2025 Travel 01/07/2025 Travel 01/07/2025 Telephone [facility]ology/BMT and Cellular Therapy Program [address] [place] [phone] Sabine Clemons MD 01/07/2025 Refill [facility]ology/BMT and Cellular Therapy Program [address] [place] [address] [phone] Zonia Hoffman, RODDY 01/05/2025 Travel 01/05/2025 Refill [facility]ematology/BMT and Cellular Therapy Program [address] [place] [phone] Zonia Hoffman, STORE STOCKER 12/29/2024 Orders Only [facility] Hematology/BMT and Cellular Therapy Program [address] [place] [phone] New Mckinney MD Myelodysplastic syndrome (CMS/HCC) (Primary Dx) 12/29/2024 Telephone [facility] Hematology/BMT and Cellular Therapy Program 750 [facility], [address] [place] [phone] Bibiana Sepulveda, STORE STOCKER 12/28/2024 Travel 12/26/2024 Travel 12/25/2024 Travel 12/24/2024 Travel 12/23/2024 Travel 12/11/2024 Telephone [facility] Hematology/BMT and Cellular Therapy Program 750 [facility], [address] [place] [address] [place] [phone] New Mckinney MD 12/10/2024 Travel 12/09/2024 Refill [facility] Hematology/BMT and Cellular Therapy Program 750 [facility], [address] [place] [address] [place] [phone] Zonia Hoffman, STORE STOCKER from Last 3 Months Immunizations Immunization Administration [...] Mass Index 20.24 03/03/2025 1:02 PM EST Plan of Treatment Upcoming Encounters Date Type Department Care Team (Late st Contact Info) Description 04/02/2025 10:30 AM EST Clinical Support [facility] Hematology/BMT and Cellular Therapy Program 750 [facility], [address] [place] [phone] 04/02/2025 11:00 AM EST Office Visit [facility] Hematology/BMT and Cellular Therapy Program 750 [facility], [address] [place] [phone] Zonia Hoffman, STORE STOCKER 800 [facility] [address] [place] [phone] Health Maintenance Due Date Last Done Comments [...] 05/16/2023 03/21/2023 [facility]-Bone Density Scan 07/25/2024 07/25/2022 [id number] Vaccine ( season) 2024 02/18/2021, 07/10/2020, 06/12/2020 [facility]-Influenza Vaccine (#1) 12/15/202403/21, 03/21/2023, 02/10/2021, Additional history exists [facility]-Depression Screening 03/03/2026 03/03/2025 [facility]-DTaP,Tdap,and Td Vaccines (2 - Td or [...] this topic Medical Devices Implanted Type Area Magnetic Tape Composer Operator Device Identifier Shelf Expiration Date Model / Serial / Lot Port Clearvue Power 8fr - [id number] Implanted:Qty: 1 on 01/21/2024 by Ness Sargent MD at [facility] [employer]-[id number] / / Procedures Procedure Name Priority Date/Time [...] Maintenance Results * (ABNORMAL) CBC and Differential (03/03/2025 12:51 PM EST) Only the most recent of3 resultswithin the time period is included. WBC Count 0.62(LL) 3.70 - 10.30 10*3/uL LAB HEMATOLOGY METHOD 03/03/2025 1:37 PM EST [facility] RBC Count 3.19(L) 3.90 - 5.20 10*6/uL LAB HEMATOLOGY METHOD 03/03/2025 1:37 PM EST [facility] HGB 9.2(L) 11.2 - 15.7 g/dL LAB HEMATOLOGY METHOD 03/03/2025 1:37 PM EST [facility] HCT 27.1(L) 34.0 - 45.0 % LAB HEMATOLOGY METHOD 03/03/2025 1:37 PM EST [facility] Platelet Count 10(LL) 155 - 369 10*3/uL LAB HEMATOLOGY METHOD 03/03/2025 1:37 PM EST [facility] MCV 85 79 - 98 fL LAB HEMATOLOGY METHOD 03/03/2025 1:37 PM EST [facility] MCH 28.8 26.0 - 32.0 pg LAB HEMATOLOGY METHOD 03/03/2025 1:37 PM EST [facility] MCHC 33.9 30.7 - 35.5 g/dL LAB HEMATOLOGY METHOD 03/03/2025 1:37 PM EST [facility] RDW 15.0(H) 11.5 - 14.5 % LAB HEMATOLOGY METHOD 03/03/2025 1:37 PM EST [facility] MPV LAB HEMATOLOGY METHOD 03/03/2025 1:37 PM [facility] Comment:Not Measured nRBC 0.0 <=0.0 per 100 WBCs LAB HEMATOLOGY METHOD 03/03/2025 1:37 PM EST [facility] Differential Type Automated LAB HEMATOLOGY METHOD 03/03/2025 1:37 PM [facility] Neutrophils % 2 % LAB HEMATOLOGY METHOD 03/03/2025 1:37 PM EST [facility] Lymphocytes % 91 % LAB HEMATOLOGY METHOD 03/03/2025 1:37 PM EST [facility] Monocytes % 7 % LAB HEMATOLOGY METHOD 03/03/2025 1:37 PM EST [facility] Eosinophils % 0 % LAB HEMATOLOGY METHOD 03/03/2025 1:37 PM EST [facility] Basophils % 0 % LAB HEMATOLOGY METHOD 03/03/2025 1:37 PM EST [facility] Immature Granulocytes % 0 % LAB HEMATOLOGY METHOD 03/03/2025 1:37 PM EST [facility] Neutrophils Absolute 0.01(LL) 1.60 - 6.10 10*3/uL LAB HEMATOLOGY METHOD 03/03/2025 1:37 PM EST [facility] Lymphocytes Absolute 0.57(L) 1.20 - 3.90 10*3/uL LAB HEMATOLOGY METHOD 03/03/2025 1:37 PM EST [facility] Monocytes Absolute 0.04(L) 0.30 - 0.90 10*3/uL LAB HEMATOLOGY METHOD 03/03/2025 1:37 PM EST [facility] Eosinophils Absolute 0.00 0.00 - 0.50 10*3/uL LAB HEMATOLOGY METHOD 03/03/2025 1:37 PM EST [facility] Basophils Absolute 0.00 0.00 - 0.10 10*3/uL LAB HEMATOLOGY METHOD 03/03/2025 1:37 PM EST [facility] Immature Granulocytes Absolute 0.00 0.00 - 0.06 10*3/uL LAB HEMATOLOGY METHOD 03/03/2025 1:37 PM EST [facility] Blood Venous blood specimen / Unknown (Port) Long-term Catheter / Unknown 03/03/2025 12:51 PM EST 03/03/2025 1:11 PM EST Narrative [facility] - 03/03/2025 1:37 PM EST Therapeutic decision making should be based on absolute values, rather than percentages. us New Mckinney MD LAB BLOOD ORDERABLES Final Re sult [facility] [address] [place] [phone] * (ABNORMAL) Comprehensive Metabolic Panel, Plasma (03/03/2025 12:51 PM EST) Only the most recent of3 resultswithin the time period is included. Glucose, Plasma 179(H) 74 - 99 mg/dL 03/03/2025 1:30 PM EST [facility] BUN, Plasma 20 8 - 23 mg/dL 03/03/2025 1:30 PM EST [facility] Creatinine, Plasma 0.87 0.60 - 1.10 mg/dL 03/03/2025 1:30 PM EST [facility] BUN/Creatinine Ratio 23 03/03/2025 1:30 PM EST [facility] Sodium, Plasma 136 136 - 145 mmol/L 03/03/2025 1:30 PM EST [facility] Potassium, Plasma 4.2 3.6 - 4.9 mmol/L 03/03/2025 1:30 PM EST [facility] Chloride, Plasma 105 97 - 107 mmol/L 03/03/2025 1:30 PM EST [facility] CO2, Plasma 18(L) 22 - 29 mmol/L 03/03/2025 1:30 PM EST [facility] Anion Gap 13 6 - 16 mmol/L 03/03/2025 1:30 PM EST [facility] Total Calcium, Plasma 9.0 8.9 - 10.2 mg/dL 03/03/2025 1:30 PM EST [facility] Total Protein 6.1(L) 6.3 - 7.9 g/dL 03/03/2025 1:30 PM EST [facility] Albumin, Plasma 3.1(L) 3.5 - 5.2 g/dL 03/03/2025 1:30 PM EST [facility] AST, Plasma 12 10 - 35 U/L 03/03/2025 1:30 PM EST [facility] ALT, Plasma 5(L) 10 - 35 U/L 03/03/2025 1:30 PM EST [facility] Alkaline Phosphatase, Plasma 41(L) 46 - 142 U/L 03/03/2025 1:30 PM EST [facility] Total Bilirubin, Plasma 0.6 0.2 - 1.1 mg/dL 03/03/2025 1:30 PM EST [facility] eGFRcr 70.0 mL/min/1.7 3m*2 03/03/2025 1:30 PM EST [facility] Comment:Reported eGFRcr in m L/min/1.73m2 is based the CKD-EPI 2020 equation that does not use a race coefficient. Blood Venous blood specimen / Unknown (Port) Long-term Catheter / Unknown 03/03/2025 12:51 PM EST 03/03/2025 1:03 PM EST us New Mckinney MD LAB BLOOD ORDERABLES Final Re sult [facility] [address] [place] [address] * BIOPSY BONE MARROW (01/12/2025 10:00 AM EDT) Narrative Rebecca Barrientos PA - 01/12/2025 10:00 AM EDT Rebecca Barrientos PA 01/12/2025 12:20 PM Biopsy bone marrow Performed by: Rebecca Barrientos PA Authorized by: Rebecca Barrientos PA us Rebecca SUAREZ IN CLINIC/BEDSIDE ORDERABLE S Final Result * Chromosome Karyotype, Oncology (01/12/2025 9:55 AM EDT) Specimen Type Bone Marrow 01/20/2025 12:21 PM EDT [facility] Clinical Indication Myelodysplastic Syndrome 01/20/2025 12:21 PM EDT [facility] Specimen Adequacy Adequate 025 12:21 PM EDT [facility] Chromosome Analysis Result Giemsa-banded metaphase cells from unstimulated bone marrow cultures showed the following chromosome pattern: 43~44,X,-X,add(5)( q23),del(5)(q13q33 ),todd(7)ins?(7)(q1 1.2q11.2)t(7;12)(q 11.2;q13),-12,todd( 17)add(17)(p13.2)a dd(17)(q21)[16]/88 ,XX,idemx2[cp3]/46 ,XY[1] 01/20/2025 12:21 PM EDT [facility] Interpretation Abnormal female chromosome analysis. 95% of metaphase cells analyzed showed clonal abnormalities consistent with this patient's previous abnormal results (see [facility]-[id number]). Clinical correlation is recommended. Note: Per [employer] ([employer]) requirement an additional karyotype was performed and charged due to the presence of clonal abnormalities. # cells counted = 20 # cells analyzed = 20 # cells karyotyped = 3 Band resolution: 400-450 01/20/2025 12:21 PM EDT [facility] Pathologist Signature Reviewed by: Corey Tejada 01/20/2025 12:21 PM EDT [facility] Bone Marrow Non-blood Collection / Unknown 01/12/2025 9:55 AM EDT 01/12/2025 12:37 PM EDT us New Mckinney MD LAB CYTOGENETICS ORDERABLES F inal Result [facility] [address] [place] [address] * Leukemia/Lymphoma - Immunophenotyping by Flow Cytometry [...] surface light chains 01/12/2025 4:19 PM T [facility] Disclaimer This test was developed and its performance characteristics determined by the Immuno-Molecular Pathology Laboratory at the [facility]. It has not been cleared or [...] Result [facility] [address] [place] [address] * Bone marrow exam (01/12/2025 9:55 AM EDT) Case Report Bone Marrow Case: [id number] Authorizing Provider: New Mckinney MD Collected: 01/12/2025 0955 Ordering Location: [facility] Hematology/BMT and Received: 01/12/2025 1143 Cellular Therapy Program Pathologist: Asad Hartman MD Specimens: A) - Bone Marrow Aspirate, left B) - Bone Marrow Biopsy, left C) - Peripheral Blood for Bone Marrow 5:16 PM EDT [facility] Cytogenetics Report, Addendum Chromosome Analysis Result: Giemsa-banded metaphase cells from unstimulated bone marrow cultures showed the following chromosome pattern: 43~44,X,-X,add(5)( q23),del(5)(q13q33 ),todd(7)ins?(7)(q1 1.2q11.2)t(7;12)(q 11.2;q13),-12,todd( 17)add(17)(p13.2)a dd(17)(q21)[16]/88 ,XX,idemx2[cp3]/46 ,XY[1] Interpretation: Abnormal female chromosome analysis. 95% of metaphase cells analyzed showed clonal abnormalities consistent with this patient's previous abnormal results (see [facility]-[id number]). 5:16 PM EDT [facility] [...] 50% of erythroid precursors. 5:16 PM EDT [facility] [...] Bony trabeculae are normal. 5:16 PM T [facility] Special and Immunohistochemical Stains Immunohistochemica l [...] at the [facility], [address] [place] [address]. All tests reported here, except those addressing [...] negativity on decalcified specimens. 5:16 PM T [facility] Flow Cytometry Interpretation Flow cytometric analysis demonstrates approximately 27% population of myeloid blasts in this patient with history of myelodysplastic syndrome; expressing CD34, CD117, variable CD33, partial CD56, variable HLA-DR, partial dim CD7, CD38 and dim CD45 ([id number]). 5:16 PM EDT [facility] [...] ed Result - Final Performing Organization Address City/State/[facility] Co de Phone Number [facility] [address] [place] [address] * Hepatitis C Antibody w/Reflex to HCV Quant PCR (01/07/2024 8:42 AM EDT) Hepatitis C Antibody Negative Negative 01/07/2024 10:13 AM EDT [facility] Blood Venous blood specimen / Unknown Venipuncture / Unknown 01/07/2024 8:42 AM EDT 01/07/2024 9:25 AM EDT New Mckinney MD LAB BLOOD ORDERABLES Final Re sult [facility] [address] [place] [address] from Last 3 Months or Most Recently Relevant to Health Maintenance Insurance MEDICARE [facility] Care Teams Supervisor Inspection And Testing Relationship Specialty Start Date End Date Jevon Vazquez MD [address] [place] [address] [address] [place] [id number] PCP - General 03/23/22
--- OUTSIDE RECORDS SUMMARY | 2025-03-06 09:38 | XMS_ITS | Encounter Summary ---
Author Organization Healthcare Address [address] [place] [address] Care Team Providers Care Emissions Testing And Repair Technician Name Role Phone Jevon Vazquez MD Primary Care Provider [phone] Encounter Details Date Type Department Care Team (Latest Contact Info) Description 03/03/2025 Travel Social History Tobacco Use Types Packs/Day [...] on file documented as of this encounter Functional Status * Over the [...] Malina Kearney documented as of this encounter Plan of Treatment Upcoming Encounters Date Type Department Care Team ( st Contact Info) Description 04/02/2025 10:30 AM EST Clinical Support [facility] Hematology/BMT and Cellular Therapy Program 750 [facility], [address] [place] [address] [place] [address] 04/02/2025 11:00 AM EST Office Visit [facility] Hematology/BMT and Cellular Therapy Program [address] [place] [address] Zonia Hoffman, RECREATION ADVISER 800 [facility] [address] [place] [phone] documented as of this encounter Visit Diagnoses Not on filedocumented in this encounter Additional Health Concerns Assessment Noted Time A fall risk assessment has been complete d for the patient 03/03/2025 1:19 PM EST A Body Mass Index follow-up plan has been documented for the patient 05/28/2024 1:52 PM EST documented as of this encounter Care Teams Emissions Testing And Repair Technician Relationship Specialty Start Date End Date Jevon Vazquez MD [address] [place] [address] [address] [place] [address] PCP - General 03/23/22 documented as of this encounter
--- OUTSIDE RECORDS SUMMARY | 2025-03-06 09:38 | XMS_ITS | Encounter Summary ---
Author Organization [facility] Address [address] [place] [address] Care Team Providers Care Cement Mixer Name Role Phone Jevon Vazquez MD Primary Care Provider [phone] Reason for Visit * Reason Comments Med Refill Encounter Details Date Type Department Care Team ([facility] Contact Info) Description 02/18/2025 Refill [facility] Hematology/BMT and Cellular Therapy Program [address] [phone] Zonia Hoffman, CDC ASSOCIATE 800 [facility] [address] [place] [phone] Immunosuppressed status (CMS/HCC); Acute myeloid leukemia not [...] ([facility] Contact Info) Description 04/02/2025 10:30 AM EST Clinical Support [facility] Hematology/BMT and Cellular Therapy Program [address] [phone] 04/02/2025 11:00 AM EST Office Visit [facility] Hematology/BMT and Cellular Therapy Program [address] [place] [address] Zonia Hoffman, CDC ASSOCIATE 800 [facility] [address] [place] [address] documented as of this encounter Visit Diagnoses [...] documented as of this encounter Care Teams Cement Mixer Relationship Specialty Start Date End Date Jevon Vazquez MD [address] [place] [address] [address] [place] [address] PCP - General 03/23/22 documented as of this encounter
--- OUTSIDE RECORDS SUMMARY | 2025-03-06 09:38 | XMS_ITS | Encounter Summary ---
Author Organization Healthcare Address [address] [place] [address] Care Team Providers Care Heat Treat Supervisor Name Role Phone Jevon Vazquez MD Primary Care Provider [phone] Encounter Details Date Type Department Care Team [...] Cellular Therapy Program [address] [address] 04/02/2025 11:00 AM EST Office Visit [facility] Hematology/BMT and Cellular Therapy Program [address] [phone] Zonia Hoffman, RODDY 800 [facility] [address] [place] [phone] documented as of this encounter Visit Diagnoses Not on filedocumented in this encounter Additional Health Concerns Assessment Noted Time A fall risk assessment has been complete d for the patient 09/30/2024 9:33 AM EDT A Body Mass Index follow-up plan has been documented for the patient 05/28/2024 1:52 PM EST documented as of this encounter Care Teams Heat Treat Supervisor Relationship Specialty Start Date End Date Jevon Vazquez MD [address] [place] [address] #1 #1 [place] [address] PCP - General 03/23/22 documented as of this encounter
--- OUTSIDE RECORDS SUMMARY | 2025-03-06 09:38 | XMS_ITS | Encounter Summary ---
Author Organization Healthcare Address [address] [place] [address] Care Team Providers Care Finished Cloth Examiner Name Role Phone Jevon Vazquez MD Primary Care Provider [phone] Encounter Details Date Type Department Care Team [...] Hematology/BMT and Cellular Therapy Program [address] [phone] 04/02/2025 11:00 AM EST Office Visit [facility] Hematology/BMT and Cellular Therapy Program [address] [address] Zonia Hoffman, INCLUSION INTERN 800 [facility] [address] [place] [phone] documented as of this encounter Visit Diagnoses Not on filedocumented in this encounter Additional Health Concerns Assessment Noted Time A fall risk assessment has been complete d for the patient 09/30/2024 9:33 AM EDT A Body Mass Index follow-up plan has been documented for the patient 05/28/2024 1:52 PM EST documented as of this encounter Care Teams Finished Cloth Examiner Relationship Specialty Start Date End Date Jevon Vazquez MD [address] [place] [address] #1 #1 [place] [address] PCP - General 03/23/22 documented as of this encounter
--- OUTSIDE RECORDS SUMMARY | 2025-03-06 09:38 | XMS_ITS | Encounter Summary ---
Author Organization [facility] Address [address] [place] [address] Care Team Providers Care Seismograph Operator Helper Name Role Phone Jevon Vazquez MD Primary Care Provider [phone] Reason for Visit * Reason Comments Med Refill Encounter Details Date Type Department Care Team ([facility] Contact Info) Description 01/05/2025 Refill [facility] Hematology/BMT and Cellular Therapy Program [address] [phone] Zonia Hoffman, FIRE CONTROL MECHANIC 800 [facility] [address] [place] [phone] Social History Tobacco Use Types Packs/Day Years [...] Team ([facility] Contact Info) Description 04/02/2025 10:30 AM EST Clinical Support [facility] Hematology/BMT and Cellular Therapy Program [address] [phone] 04/02/2025 11:00 AM EST Office Visit [facility] Hematology/BMT and Cellular Therapy Program [address] [phone] Zonia Hoffman, FIRE CONTROL MECHANIC 800 [facility] [address] [place] [address] documented as of this encounter Visit Diagnoses Not on filedocumented in this encounter Additional Health Concerns Assessment Noted Time A fall risk assessment has been complete d for the patient 09/30/2024 9:33 AM EDT A Body Mass Index follow-up plan has been documented for the patient 05/28/2024 1:52 PM EST documented as of this encounter Care Teams Seismograph Operator Helper Relationship Specialty Start Date End Date Jevon Vazquez MD [address] [place] [address] #1 [address]1 [place] [address] PCP - General 03/23/22 documented as of this encounter
--- OUTSIDE RECORDS SUMMARY | 2025-03-06 09:38 | XMS_ITS | Encounter Summary ---
Author Organization Healthcare Address [address] [place] [address] Care Team Providers Care Firewall Engineer Name Role Phone Jevon Vazquez MD Primary Care Provider [phone] Encounter Details Date Type Department Care Team [...] Hematology/BMT and Cellular Therapy Program [address] [phone] 04/02/2025 11:00 AM EST Office Visit [facility] Hematology/BMT and Cellular Therapy Program [address] [address] Zonia Hoffman, RODDY 800 [facility] [address] [place] [phone] documented as of this encounter Visit Diagnoses Not on filedocumented in this encounter Additional Health Concerns Assessment Noted Time A fall risk assessment has been complete d for the patient 09/30/2024 9:33 AM EDT A Body Mass Index follow-up plan has been documented for the patient 05/28/2024 1:52 PM EST documented as of this encounter Care Teams Firewall Engineer Relationship Specialty Start Date End Date Jevon Vazquez MD [address] [place] [address] #1 #1 [place] [address] PCP - General 03/23/22 documented as of this encounter
--- OUTSIDE RECORDS SUMMARY | 2025-03-06 09:38 | XMS_ITS | Encounter Summary ---
Author Organization [facility] Address [address] [place] [address] Care Team Providers Care Entry Table Operator Name Role Phone Jevon Vazquez MD Primary Care Provider [phone] Encounter Details Date Type Department Care Team ([facility] Contact Info) Description 01/07/2025 Telephone [facility] Hematology/BMT and Cellular Therapy Program [address] [phone] Sabine Clemons MD 800 [facility] [address] [place] [phone] Social History Tobacco Use Types Packs/Day Years [...] Encounters Date Type Department Care Team ([facility] Contact Info) Description 04/02/2025 10:30 AM EST Clinical Support [facility] Hematology/BMT and Cellular Therapy Program [address] [place] [phone] 04/02/2025 11:00 AM EST Office Visit [facility] Hematology/BMT and Cellular Therapy Program [address] [place] [phone] Zonia Hoffman, NEWS DIRECTOR 800 [facility] [address] [place] [address] documented as of this encounter Visit Diagnoses Not on filedocumented in this encounter Additional Health Concerns Assessment Noted Time A fall risk assessment has been complete d for the patient 09/30/2024 9:33 AM EDT A Body Mass Index follow-up plan has been documented for the patient 05/28/2024 1:52 PM EST documented as of this encounter Care Teams Entry Table Operator Relationship Specialty Start Date End Date Jevon Vazquez MD [address] [place] [address] #1 #1 [place] [address] PCP - General 03/23/22 documented as of this encounter
--- OUTSIDE RECORDS SUMMARY | 2025-03-06 09:38 | XMS_ITS | Clinical Summary ---
Author Organization [facility] Address [address] [place] [address] Care Team Providers Care Group Insurance Specialist Name Role Phone David Vazquez Primary Care Provider [phone] Allergies No known active allergies Medications atorvastatin [...] Discontinued 01/24/2023 Medical Devices Implanted Type Area Machine Set Up Technician Device Identifier Shelf Expiration Date Model / Serial / Lot Mis Ply Scr 6.5x50mm - [id number] Implanted:Qty : 1 on 01/30/2023 by Ivan Bartholomew MD at [facility] Screw N/A: Spine Lumbar [employer] [id number] / / Mis Ply Scr 6.5x45mm - [id number] Implanted:Qty : 3 on 01/30/2023 by Ivan Bartholomew MD at [facility] Screw N/A: Spine Lumbar [employer] [id number] / / Reline Mas Reduction Screw 7.5x45 - [id number] Implanted:Qty : 2 on 01/30/2023 by Ivan Bartholomew MD at [facility] Screw N/A: Spine Lumbar [employer] [id number] / / Grft Dbm Vesuvius Putty 5cc - [id number] Implanted:Qty : 1 on 01/30/2023 by Ivan Bartholomew MD at [facility] [employer] [id number] 04/20/2025 [id number] P / [id number] / Putty I-Factor 5.0cc - [id number] Implanted:Qty : 1 on 01/30/2023 by Ivan Bartholomew MD at [facility] N/A: Spine Lumbar [employer] 03/15/2025 [id number] / / [id number] Modulus Xlw [id number] 10 Degree - [id number] Implanted:Qty : 1 on 01/30/2023 by Ivan Bartholomew MD at [facility] N/A: Spine Lumbar [employer] [id number] / / [id number] Modulus Xlw [id number] - [id number] Implanted:Qty : 1 on 01/30/2023 by Ivan Bartholomew MD at [facility] N/A: Spine Lumbar [employer] 09/28/2027 [id number] / / [id number] Reln Lock Scr 5.5mm Opn Tulip - [id number] Implanted:Qty : 6 on 01/30/2023 by Ivan Bartholomew MD at [facility] N/A: Spine Lumbar [employer] [id number] / / Reln Mas Ti Petar 5.5x70mm - [id number] Implanted:Qty : 2 on 01/30/2023 by Ivan Bartholomew MD at [facility] N/A: Spine Lumbar [employer] [id number] / / Procedures Procedure Name Priority Date/Time [...] LAB Glucose 125(H) 71 - 99 mg/dL [facility] Comment:Reference range (71- 99 [...] mL/min/1.73m2. Calcium 10.3 8.5 - 10.5 mg/dL [facility] BUN/Creatinine Ratio 14 [facility] Serum 01/24/2023 2:32 PM EDT 01/24/2023 5:54 PM EDT Lexi SUAREZ CHEMISTRY ORDERABLES Final Resu lt [facility] [address] from Last 3 Months or Most Recently Relevant to Health Maintenance Insurance MEDICARE Member Subscriber Plan / Payer (Ef fective 2016-Present) Name:Ashly Briceño Member ID:[id number] Relation to Subscriber:Self Name:Ashly Briceño Subscriber ID:[id number] Payer ID:[id number] Group ID:Not on file Type:Medicare Address: [facility] J15 PART A [facility] [place] [address] [place] [address] [facility] Advance Directives For more information, please contact: [phone] * Full Code (Latest Code Status on File) Date Activated Date Inactivated Comments 01/30/2023 9:13 AM No automated chest compression devices for VAD Patients Care Teams Group Insurance Specialist Relationship Specialty Start Date End Date David Vazquez [address] [place] [address] PCP - General 01/24/23
--- OUTSIDE RECORDS SUMMARY | 2025-03-06 09:38 | XMS_ITS | Encounter Summary ---
Author Organization [facility] Address [address] [place] [address] Care Team Providers Care Artist Color Separation Name Role Phone Jevon Vazquez MD Primary Care Provider [phone] Encounter Details Date Type Department Care Team ([facility] Contact Info) Description 03/06/2025 Telephone [facility] Hematology/BMT and Cellular Therapy Program [address] [phone] New Mckineny MD 800 [facility] [address] [place] [phone] Social History Tobacco Use Types Packs/Day Years [...] [facility]) Description 04/02/2025 10:30 AM EST Clinical Support [facility] Hematology/BMT and Cellular Therapy Program [address] [phone] 04/02/2025 11:00 AM EST Office Visit [facility] Hematology/BMT and Cellular Therapy Program [address] [phone] Zonia Hoffman, ORTHOPAEDIC TECHNOLOGIST 800 [facility] [address] [place] [address] documented as of this encounter Visit Diagnoses Not on filedocumented in this encounter Additional Health Concerns Assessment Noted Time A fall risk assessment has been complete d for the patient 03/03/2025 1:19 PM EST A Body Mass Index follow-up plan has been documented for the patient 05/28/2024 1:52 PM EST documented as of this encounter Care Teams Artist Color Separation Relationship Specialty Start Date End Date Jevon Vazquez MD [address] [place] [address] #1 #1 [place] [address] PCP - General 03/23/22 documented as of this encounter
--- OUTSIDE RECORDS SUMMARY | 2025-03-06 09:38 | XMS_ITS | Encounter Summary ---
Author Organization Healthcare Address [address] [place] [address] Care Team Providers Care Certified Drug Counselor Name Role Phone Jevon Vazquez MD Primary Care Provider [phone] Encounter Details Date Type Department Care Team (Late Contact Info) Description 01/16/2025 Telephone [facility] Hematology/BMT and Cellular Therapy Program [address] [place] [address] [place] [address] Daxa Elliott RN [facility] None Social History Tobacco [...] Hematology/BMT and Cellular Therapy Program 750 [facility] [place] [address] 04/02/2025 11:00 AM EST Office Visit [facility] Hematology/BMT and Cellular Therapy Program 750 [facility] [place] [address] Zonia Hoffman, HAND BOOKED FOLDER AND STITCHER 800 [facility] [address] [place] [phone] documented as of this encounter Visit Diagnoses Not on filedocumented in this encounter Additional Health Concerns Assessment Noted Time A fall risk assessment has been complete d for the patient 09/30/2024 9:33 AM EDT A Body Mass Index follow-up plan has been documented for the patient 05/28/2024 1:52 PM EST documented as of this encounter Care Teams Certified Drug Counselor Relationship Specialty Start Date End Date Jevon Vazquez MD [address] [place] [address] #1 #1 [place] [address] PCP - General 03/23/22 documented as of this encounter
--- OUTSIDE RECORDS SUMMARY | 2025-03-06 09:38 | XMS_ITS | Encounter Summary ---
Author Organization Healthcare Address [address] [place] [address] Care Team Providers Care Slat Basket Maker Helper Name Role Phone Jevon Vazquez MD Primary Care Provider [phone] Encounter Details Date Type Department Care Team [...] Hematology/BMT and Cellular Therapy Program [address] [address] 04/02/2025 11:00 AM EST Office Visit [facility] Hematology/BMT and Cellular Therapy Program [address] [address] Zonia Hoffman, RODDY 800 [facility] [address] [place] [phone] documented as of this encounter Visit Diagnoses Not on filedocumented in this encounter Additional Health Concerns Assessment Noted Time A fall risk assessment has been complete d for the patient 09/30/2024 9:33 AM EDT A Body Mass Index follow-up plan has been documented for the patient 05/28/2024 1:52 PM EST documented as of this encounter Care Teams Slat Basket Maker Helper Relationship Specialty Start Date End Date Jevon Vazquez MD [address] [place] [address] #1 #1 [place] [address] PCP - General 03/23/22 documented as of this encounter
--- OUTSIDE RECORDS SUMMARY | 2025-03-06 09:38 | XMS_ITS | Encounter Summary ---
Author Organization Healthcare Address [address] [place] [address] Care Team Providers Care Ship Unloader Name Role Phone Jevon Vazquez MD Primary Care Provider [phone] Encounter Details Date Type Department Care Team [...] Hematology/BMT and Cellular Therapy Program [address] [phone] 04/02/2025 11:00 AM EST Office Visit [facility] Hematology/BMT and Cellular Therapy Program [address] [phone] Zonia Hoffman, COMMUNITY LIVING SPECIALIST 800 [facility] [address] [place] [phone] documented as of this encounter Visit Diagnoses Not on filedocumented in this encounter Additional Health Concerns Assessment Noted Time A fall risk assessment has been complete d for the patient 01/27/2025 3:25 PM EDT A Body Mass Index follow-up plan has been documented for the patient 05/28/2024 1:52 PM EST documented as of this encounter Care Teams Ship Unloader Relationship Specialty Start Date End Date Jevon Vazquez MD [address] [place] [address] #1 #1 [place] [address] PCP - General 03/23/22 documented as of this encounter
--- OUTSIDE RECORDS SUMMARY | 2025-03-06 09:38 | XMS_ITS | Encounter Summary ---
Author Organization Healthcare Address [address] [place] [address] Care Team Providers Care Dry Dip Worker Name Role Phone Jevon Vazquez MD Primary Care Provider [phone] Encounter Details Date Type Department Care Team (Late st Contact Info) Description 03/03/2025 Telephone [facility] Hematology/BMT and Cellular Therapy Program [address] [place] [address] Alyson Vivas RN None None Social History [...] Clinician Note - Alyson Vivas RN - 03/03/2025 1:37 PM EST Critical Lab Results Facility: lab Primary Oncologist: Dr. Mckinney Notified Primary Onc RN: 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, fuel pilot engineer Value Action Taken WBC 0.62 documented in this encounter Plan of Treatment Upcoming Encounters Date Type Department Care Team ([facility] st Contact Info) Description 04/02/2025 10:30 AM EST Clinical Support [facility] Hematology/BMT and Cellular Therapy Program [address] [address] 04/02/2025 11:00 AM EST Office Visit PAV Hematology/BMT and Cellular Therapy Program [address] [phone] Zonia Hoffman, ASSISTANT FEDERAL PUBLIC DEFENDER 800 [facility] [address] [place] [phone] documented as of this encounter Visit Diagnoses Not on filedocumented in this encounter Additional Health Concerns Assessment Noted Time A fall risk assessment has been complete d for the patient 03/03/2025 1:19 PM EST A Body Mass Index follow-up plan has been documented for the patient 05/28/2024 1:52 PM EST documented as of this encounter Care Teams Dry Dip Worker Relationship Specialty Start Date End Date Jevon Vazquez MD [address] [place] [address] #1 #1 [place] [address] PCP - General 03/23/22 documented as of this encounter
--- OUTSIDE RECORDS SUMMARY | 2025-03-06 09:38 | XMS_ITS | Encounter Summary ---
Author Organization Healthcare Address [address] [place] [address] Care Team Providers Care Needle Process Felt Goods Supervisor Name Role Phone Jevon Vazquez MD Primary Care Provider [phone] Encounter Details Date Type Department Care Team (Late st Contact Info) Description 03/03/2025 Telephone [facility] Hematology/BMT and Cellular Therapy Program [address] [place] [address] Alyson Vivas RN None None Social History [...] Note - Alyson Vivas RN - 03/03/2025 1:48 PM EST Critical Lab Results Facility: lab Primary Oncologist: Dr. Mckinney Notified Primary Onc RN: 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, seismograph supervisor Value Action Taken WBC 0.62 PLT 10 RN notifed documented in this encounter Plan of Treatment Upcoming Encounters Date Type Department Care Team (Late st Contact Info) Description 04/02/2025 10:30 AM EST Clinical Support [facility] Hematology/BMT and Cellular Therapy Program [address] [address] 04/02/2025 11:00 AM EST Office Visit PAV Hematology/BMT and Cellular Therapy Program [address] [phone] Zonia Hoffman, PEAR PICKER 800 [facility] [address] [place] [phone] documented as of this encounter Visit Diagnoses Not on filedocumented in this encounter Additional Health Concerns Assessment Noted Time A fall risk assessment has been complete d for the patient 03/03/2025 1:19 PM EST A Body Mass Index follow-up plan has been documented for the patient 05/28/2024 1:52 PM EST documented as of this encounter Care Teams Needle Process Felt Goods Supervisor Relationship Specialty Start Date End Date Jevon Vazquez MD [address] [place] [address] #1 #1 [place] [address] PCP - General 03/23/22 documented as of this encounter
--- OUTSIDE RECORDS SUMMARY | 2025-03-06 09:38 | XMS_ITS | Encounter Summary ---
Author Organization [facility] Address [address] 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 [address] [address] Phone: tel: fax: Referral ID Status Reason Start Date Expiration Date Visits Re quested Visits Authorized [id number] Closed 1 1 Reason for Visit * Reason Comments Med Refill Encounter Details Date Type Department Care Team ([facility] st Contact Info) Description 02/18/2025 Refill [facility] Hematology/BMT and Cellular Therapy Program [address] [place] [address] New Mckinney MD [address] [facility] [address] [address] Acute myeloid leukemia not having [...] [facility] Contact Info) Description 04/02/2025 10:30 AM EST Clinical Support [facility] Hematology/BMT and Cellular Therapy Program 750 [facility], [address] [place] [phone] 04/02/2025 11:00 AM EST Office Visit [facility] Hematology/BMT and Cellular Therapy Program 750 [facility], [address] [place] [phone] Zonia Hoffman, MOCK UP ASSEMBLER 800 [facility] [address] [place] [phone] documented as of this encounter Visit Diagnoses [...] documented as of this encounter Care Teams Physics Technician Relationship Specialty Start Date End Date Jevon Vazquez MD [address] [place] [address] #1 #1 [place] [address] PCP - General 03/23/22 documented as of this encounter
--- OUTSIDE RECORDS SUMMARY | 2025-03-06 09:38 | XMS_ITS | Encounter Summary ---
Author Organization Healthcare Address [address] [place] [address] Care Team Providers Care Dairy Consultant Name Role Phone Jevon Vazquez MD Primary Care Provider [phone] Encounter Details Date Type Department Care Team ([facility] Contact Info) Description 02/16/2025 Orders Only [facility] Hematology/BMT and Cellular Therapy Program [address] [phone] 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, RN [facility] HEMATOLOGY PROGRAM CLINIC None Social History [...] Hematology/BMT and Cellular Therapy Program [address] [phone] 04/02/2025 11:00 AM EST Office Visit [facility] Hematology/BMT and Cellular Therapy Program [address] [phone] Zonia Hoffman, OCULAR CARE TECHNOLOGIST 800 [facility] [address] [place] [phone] documented as of this encounter Visit Diagnoses Not on filedocumented in this encounter Additional Health Concerns Assessment Noted Time A fall risk assessment has been complete d for the patient 01/27/2025 3:25 PM EDT A Body Mass Index follow-up plan has been documented for the patient 05/28/2024 1:52 PM EST documented as of this encounter Care Teams Dairy Consultant Relationship Specialty Start Date End Date Jevon Vazquez MD [address] [place] [address] #1 #1 [place] [address] PCP - General 03/23/22 documented as of this encounter
[2025-03-06 09:45] LABS: Immature Granulocytes % 0 %; Mean Corpuscular HGB Conc 33.3 g/dL (31.8-35.4); Mean Corpuscular Hemoglobin 29.1 pg (27.0-31.2); Mean Corpuscular Volume 87.3 fl (81-99); Nucleated Red Blood Cells % 0 %; Platelet Count 56 K/mm3 (142-424); Red Blood Count 2.37 M/mm3 (4.20-5.40); Red Cell Distribution Width-SD 47.4 fL
[2025-03-06 09:48] LABS: White Blood Count 0.6 K/mm3 (4.8-10.8)
[2025-03-06 09:49] LABS: Hematocrit 20.7 % (37.0-47.0); Hemoglobin 6.9 g/dL (12.2-16.2)
[2025-03-06] MEDS: SODIUM CHLORIDE 0.9% 250ML BAG 250 ML IV (10:06)
[2025-03-06] MEDS: ACETAMINOPHEN 325MG TAB 650 MG (10:10)
[2025-03-06 11:14] LABS: RBC Morphology Normal; Total Cells Counted 20
[2025-03-06 11:37] LABS: Albumin Level 3.1 g/dl (3.5-5.0); Chloride 103 mmol/L (98-107); Sodium 140 mmol/L (136-145)
[2025-03-06 11:38] LABS: Potassium 4.3 mmoL/L (3.5-5.1)
[2025-03-06 11:40] LABS: Alanine Aminotransferase 21 U/L (12-78); Albumin/Globulin Ratio 1.0 (1.1-1.8); Alkaline Phosphatase 42 U/L (38-126); Anion Gap 21.3 mEq/L (5-15); Aspartate Amino Transferase 40 U/L (14-36); Bilirubin,Total 0.8 mg/dl (0.2-1.3); Blood Urea Nitrogen 19 mg/dl (7-17); Carbon Dioxide 20 mmol/L (22.0-30.0); Creatinine Clearance Estimated 42 mL/min (50-200); Creatinine,Serum 0.90 mg/dl (0.52-1.04); Estimated Glomerular Filt Rate 61 ml/min (>60); GFR (African American) 74 ML/MIN (>60); Globulin 3.0 g/dL (1.3-3.2); Total Protein,Serum 6.1 g/dl (6.3-8.2)
[2025-03-06 11:41] LABS: Calcium 8.9 mg/dl (8.4-10.2); Glucose 236 mg/dl (74-100)
== END 2025-03-06 23:59 | disposition home or self-care (01) ==
LOC: INF 09:32
PROVIDERS: PCP Family Medicine; Visit Provider Internal Medicine Medical Oncology
DX: C92.00 Acute myeloblastic leukemia, not having achieved remission (principal)
CPT/HCPCS: 36430; 80053; 85007; 85025; 85027; J1642; J7050; P9016

== ENCOUNTER 2025-03-09 07:51 | Emergency (ER) | payer MEDICARE, BC, SELFPAY ==
--- OUTSIDE RECORDS SUMMARY | 2025-01-12 08:30 | XMS_ITS | Encounter Summary ---
Author Organization Healthcare Address [address] [place] [address] Care Team Providers Care Plan Checker Name Role Phone Jevon Vazquez MD Primary Care Provider [phone] Reason for Visit * Reason Comments Labs Encounter Details Date Type Department Care Team ([facility] Contact Info) Description 01/12/2025 9:30 AM EDT Clinical Support [facility] Hematology/BMT and Cellular Therapy Program [address] [phone] Social History Tobacco Use Types Packs/Day Years [...] Team ([facility] Contact Info) Description 04/02/2025 10:30 AM EST Clinical Support [facility] Hematology/BMT and Cellular Therapy Program [address] [phone] 04/02/2025 11:00 AM EST Office Visit [facility] Hematology/BMT and Cellular Therapy Program [address] [phone] Zonia Hoffman, VINEGAR MAKER 800 [facility] [address] [place] [phone] documented as of this encounter Visit Diagnoses Not on filedocumented in this encounter Additional Health Concerns Assessment Noted Time A fall risk assessment has been complete d for the patient 09/30/2024 9:33 AM EDT A Body Mass Index follow-up plan has been documented for the patient 05/28/2024 1:52 PM EST documented as of this encounter Care Teams Plan Checker Relationship Specialty Start Date End Date Jevon Vazquez MD [address] [place] [address] #1 #1 [place] [address] PCP - General 03/23/22 documented as of this encounter
--- OUTSIDE RECORDS SUMMARY | 2025-01-12 09:00 | XMS_ITS | Encounter Summary ---
Author Organization [facility] Address [address] [place] [address] Care Team Providers Care Aviation Technician Name Role Phone Jevon Vazquez MD Primary Care Provider [phone] Reason for Visit * Genetic Testing (Routine) - Authorized Specialty Diagnoses / Procedures Referred By Rebecca barron Referred To Contact Lab Diagnoses Myelodysplastic syndrome (CMS/HCC) Procedures Leukemia/Lymphoma - Immunophenotyping by Flow Cytometry New Mckinney MD 800 [facility] [address] [phone] Phone: tel: fax: Referral ID Status Reason Start Date Expiration Date V isits Requested Visits Authorized [id number] Authorized 12/29/2024 06/30/2026 1 1 Encounter Details Date Type Department Care Team (Latest Contact Info) Description 01/12/2025 10:00 AM EDT Procedure Visit [facility] Hematology/BMT and Cellular Therapy Program [address] [phone] Rebecca Barrientos PA 800 [facility] [address] [phone] Myelodysplastic syndrome (CMS/HCC); Acute myeloid leukemia not having achieved remission [...] Sign Reading Time Taken Comments Blood Pressure 105/69 01/12/2025 9:49 AM EDT Pulse 86 01/12/2025 9:49 AM EDT Temperature 36.5 C (97.7 F) 01/12/2025 9:49 AM EDT Respiratory Rate - - Oxygen Saturation 94% 01/12/2025 9:49 AM EDT Inhaled Oxygen Concentration - - Weight 55.4 kg (122 lb 2.2 oz) 01/12/2025 9:49 A M EDT Height 162.6 cm (5' 4.02 ) 01/12/2025 9:49 AM ED T Body Mass Index 20.95 01/12/2025 9:49 AM EDT documented in this encounter Miscellaneous Notes * Progress Notes - Rebecca Barrientos PA - 01/12/2025 10:00 AM EDTAssociated Order(s): Biopsy bone marrow Post-Procedure Diagnose(s): 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 female. Encounter Diagnoses Name Primary? 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 Date: 01/12/25 Time-Out was called at 1100. Procedure performed: bone marrow biopsy Correct patient confirmed using two patient identifiers: Yes Confirmed procedure to be performed: Yes Verified procedure site/side: Yes Consent given/obtained: Yes Pre-procedure medications given: No Procedure performed by: Rebecca Barrientos PA-C Patient Diagnosis: AML The patient was placed in the prone position. The left posterior iliac crest was identified and thesite was marked. The area was sterile prepped and draped. Local anesthetic was injected superficially at the marked site, then into deeper tissues, including periosteally. A small incision was made at the site and an 11 gauge Jamshidi needle was inserted into the left posterior iliac crest. Bone mar row aspirate and core biopsy were obtained from a single anchor. The instrument was then removed and pressure was held at the site. The area was cleaned and a dry sterile pressure dressing was applied. The patient was placed in the supine recumbent position. There were no complications. DANIELA Davis [facility] HEMATOLOGY/BMT AND CELLULAR THERAPY PROGRAM 800 [facility] [phone] / documented in this encounter Plan of Treatment Upcoming Encounters Date Type Department Care Team ([facility] st Contact Info) Description 04/02/2025 10:30 AM EST Clinical Support [facility] Hematology/BMT and Cellular Therapy Program [address] [phone] 04/02/2025 11:00 AM EST Office Visit [facility] Hematology/BMT and Cellular Therapy Program [address] [phone] Zonia Hoffman, RODDY 800 [facility] [address] [place] [phone] documented as of this encounter Procedures Procedure Name Priority Date/Time Associated Diagnosis Comments BIOPSY BONE MARROW Routine 01/12/2025 10 :00 AM EDT 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) CYTOGENETICS TESTING, ONCOLOGY Routine 01/12/2025 9:55 AM EDT Myelodysplastic syndrome (CMS/HCC) CHROMOSOME KARYOTYPE, ONCOLOGY Routine 01/12/2025 9:55 AM EDT Myelodysplastic syndrome (CMS/HCC) LEUKEMIA/LYMPHOMA - IMMUNOPHENOTYPING BY FLOW CYTOMETRY Routine 01/12/2025 9:55 AM EDT Myelodysplastic syndrome (CMS/HCC) BONE MARROW EXAM Routine 01/12/2025 9:55 AM EDT Myelodysplastic syndrome (CMS/HCC) CBC WITH AUTO DIFFERENTIAL Routine 01/12/2025 9:15 AM EDT 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) COMPREHENSIVE METABOLIC PANEL, PLASMA Routine 01/12/2025 9:15 AM EDT 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) documented in this encounter Results * BIOPSY BONE MARROW (01/12/2025 10:00 AM EDT) Narrative Rebecca Barrientos PA - 01/12/2025 10:00 AM EDT Rebecca Barrientos PA 01/12/2025 12:20 PM Biopsy bone marrow Performed by: Rebecca Barrientos PA Authorized by: Rebecca Barrientos PA Rebecca SUAREZ IN CLINIC/BEDSIDE ORDERABLE S Final Result * Chromosome Karyotype, Oncology (01/12/2025 9:55 AM EDT) Specimen Type Bone Marrow 01/20/2025 12:21 PM EDT [facility] Clinical Indication Myelodysplastic Syndrome 01/20/2025 12:21 PM EDT [facility] Specimen Adequacy Adequate 025 12:21 PM EDT [facility] Chromosome Analysis Result Giemsa-banded metaphase cells from unstimulated bone marrow cultures showed the following chromosome pattern: 43~44,X,-X,add(5)( q23),del(5)(q13q33 ),todd(7)ins?(7)(q1 1.2q11.2)t(7;12)(q 11.2;q13),-12,todd( 17)add(17)(p13.2)a dd(17)(q21)[16]/88 ,XX,idemx2[cp3]/46 ,XY[1] 01/20/2025 12:21 PM EDT [facility] Interpretation Abnormal female chromosome analysis. 95% of metaphase cells analyzed showed clonal abnormalities consistent with this patient's previous abnormal results (see [id number]). Clinical correlation is recommended. Note: Per [employer] (CAP) requirement an additional karyotype was performed and charged due to the presence of clonal abnormalities. # cells counted = 20 # cells analyzed = 20 # cells karyotyped = 3 Band resolution: 400-450 01/20/2025 12:21 PM EDT [facility] Pathologist Signature Reviewed by: Corey Tejada 01/20/2025 12:21 PM EDT [facility] Bone Marrow Non-blood Collection / Unknown 01/12/2025 9:55 AM EDT 01/12/2025 12:37 PM EDT us New Mckinney MD LAB CYTOGENETICS ORDERABLES F inal Result [facility] [address] [place] [address] * Leukemia/Lymphoma - Immunophenotyping by Flow Cytometry (01/12/2025 9:55 AM EDT) Clinical Indication MDS 01/12/2025 4:19 PM EDT [facility] Flow Cytometry Interpretation APPROXIMATELY 27% MYELOID BLASTS EXPRESSING CD34, CD117, VARIABLE CD33, PARTIAL CD56, VARIABLE HLA-DR, PARTIAL DIM CD7, CD38 AND DIM CD45, SEE COMMENT, BBONE MARROW ASPIRATE. 01/12/2025 4:19 PM EDT [facility] Comments Specimen viability is 89%. Flow cytometric analysis shows an expansion of the progenitor region of CD45/side scatter analysis corresponding to a population of myeloid blasts with the phenotype given in the diagnosis. T cells constitute 18% of total analyzed events and show normal expression of tested antigens with a CD4/CD8 ratio of 2.9:1. B cells comprise 0.3% of total events and are polytypic with a kappa to lambda ratio of 0.8:1. There is also a population of NK cells that constitute 16% of lymphocytes. The remaining events are decreased myeloid cells and monocytes. In summary, this bone marrow flow cytometric analysis demonstrates approximately 27% population of myeloid blasts in this patient with history of myelodysplastic syndrome. Final interpretation requires clinical, morphologic and cytogenetic correlation. The following antibodies were used in this analysis: CD45, CD2, CD3, CD4, CD5, CD7, CD8, CD10, CD13, CD14, CD15, CD16, CD19, CD20, CD33, CD34, CD38, CD56, CD117, CD123, HLA-DR, kappa surface light chains, lambda surface light chains 01/12/2025 4:[address] [facility] Disclaimer This test was developed and its performance characteristics determined by the Immuno-Molecular Pathology Laboratory at the [facility]. It has not been cleared or [...] to perform high complexity clinical laboratory testing. 01/12/2025 4:[address] [facility] Pathologist Signature Reviewed by: Asad Hartman MD 01/12/2025 4:19 PM EDT [facility] MRD Indicated Test Not Indicated 4:[address] [facility] Bone Marrow Specimen from bone marrow obtained by aspiration / Unknown Non-blood Collection / Unknown 01/12/2025 9:55 AM EDT 01/12/2025 1:48 PM EDT us New Mckinney MD LAB FLOW CYTOMETRY ORDERABLES Final Result [facility] [address] [place] [address] * Bone marrow exam (01/12/2025 9:55 AM EDT) Case Report Bone Marrow Case: [id number] Authorizing Provider: New Mckinney MD Collected: 01/12/2025 0955 Ordering Location: [facility] Hematology/BMT and Received: 01/12/2025 1143 Cellular Therapy Program Pathologist: Asad Hartman MD Specimens: A) - Bone Marrow Aspirate, left B) - Bone Marrow Biopsy, left C) - Peripheral Blood for Bone Marrow 5:16 PM EDT [facility] Cytogenetics Report, Addendum Chromosome Analysis Result: Giemsa-banded metaphase cells from unstimulated bone marrow cultures showed the following chromosome pattern: 43~44,X,-X,add(5)( q23),del(5)(q13q33 ),todd(7)ins?(7)(q1 1.2q11.2)t(7;12)(q 11.2;q13),-12,todd( 17)add(17)(p13.2)a dd(17)(q21)[16]/88 ,XX,idemx2[cp3]/46 ,XY[1] Interpretation: Abnormal female chromosome analysis. 95% of metaphase cells analyzed showed clonal abnormalities consistent with this patient's previous abnormal results (see [facility]-[id number]). 5:16 PM EDT [facility] Addendum electronically signed by Asad Hartman MD on 01/23/2025 at 1716 EDT Final Diagnosis PERIPHERAL BLOOD AND BONE MARROW, LEFT POSTERIOR ILIAC CREST, (PERIPHERAL SMEAR, ASPIRATE SMEAR, AND CORE BIOPSY): - HYPOCELLULAR BONE MARROW WITH MARKEDLY DECREASED MEGAKARYOCYTES, DECREASED MATURING GRANULOPOIESIS, APPROXIMATELY 7-10% VARIABLY DISTRIBUTED BLASTS AND MORE THAN 50% RING SIDEROBLASTS, SEE COMMENT. 5:16 PM EDT [facility] at 0941 EDT Comment The discrepancy between blasts percentage by morphologic assessment and flow cytometric analysis is due to erythroid precursors that constitute majority of bone marrow cellularity and are removed by flow cytometry. 5:16 PM EDT [facility] Clinical Information MDS 01/14 5:16 PM EDT [facility] CBC and Differential PERIPHERAL BLOOD: 01/12/2025: WBC Count 1.31 (Ref range: 3.70 - 10.30 10*3/uL); HGB 8.4 (Ref range: 11.2 - 15.7 g/dL); HCT 25.0 (Ref range: 34.0 - 45.0 %); Platelet Count 31 (Ref range: 155 - 369 10*3/uL); MCV 93 (Ref range: 79 - 98 fL) DIFFERENTIAL:2024: Neutrophils % 19; Lymphocytes % 64; Monocytes % 15; Basophils % 0; Eosinophils % 2; Immature Granulocytes % 0 Review of the peripheral blood smear shows marked leukopenia with severe neutropenia. Definitive circulating blasts are not identified. Red blood cells demonstrate moderate normocytic anemia with few target cells. Platelets are decreased. 5:16 PM EDT [facility] Bone Marrow Differential BONE MARROW DIFFERENTIAL: 300 cells Normal Patient Neutrophils 15-50 12 Metamyelocytes 4-19 0 Myelocytes 1-18 1 Promyelocytes 1-8 0 Blasts 0-2 7 Monocytes 0-5 7 Erythroid 16-38 61 Lymphocytes 3-24 7 Eosinophils 0-6 3 Basophils 0-2 0 Plasma cells 0-4 2 Other 5:16 PM T [facility] Aspirate Smear The bone marrow aspirate smears show cellular marrow particles with a cellularity that is predominantly comprised of erythroid precursors. Maturing granulopoiesis is decreased. Blasts account for 7% of cellularity. Erythroid precursors demonstrate cytologic changes such as binucleation, multinucleation, irregular nuclear contours and megaloblastoid changes. The myeloid to erythroid ratio is 0.3 (Normal:1.5-4). Megakaryocytes are decreased. Iron stores (on Prussian Blue stains) are markedly increased. Ring sideroblasts constitute more than 50% of erythroid precursors. 5:16 PM T [facility] Core Biopsy CELLULARITY: Variably cellular bone marrow with stromal damage. The cellularity ranges from 5% to 15%. Overall, the bone marrow is hypocellular. M:E RATIO: The M:E ratio is decreased. MYELOID SERIES: Maturing granulopoiesis is significantly reduced. An immunostain for CD34 highlights variably distributed blasts with foci up to 7-10% blasts. ERYTHROID SERIES: Erythroid precursors constitute majority of cellularity. MEGAKARYOCYTES: The megakaryocytes are markedly decreased. PLASMA CELLS: There are rare scattered plasma cells. LYMPHOID CELLS: No significant lymphoid infiltrate is seen. OTHER CELLS: Extrinsic cells are not identified. TRABECULAR BONE: Bony trabeculae are normal. 5:16 PM T [facility] Special and Immunohistochemical Stains Immunohistochemica l stains were performed in addition to flow cytometry to further characterize the blasts in the context of cell morphology and tissue architecture, since discrepancy between flow cytometric analysis and morphology can occur due to sampling bias, preferential loss of targeted cells, or hemodilution. Special Stain: A1-1 Vazquez-Giemsa A1-2 Vazquez-Giemsa A1-3 Vazquez-Giemsa A1-4 Iron C1-1 Vazquez-Giemsa IHC: B1-2 CD34 All controls show appropriate reactivity. All immunohistochemist ry, in situ hybridization, and histochemical tests were developed by and are performed at the [facility], [address] [place] [address]. All tests reported here, except those addressing [...] likelihood of false negativity on decalcified specimens. 5:16 PM T [facility] Flow Cytometry Interpretation Flow cytometric analysis demonstrates approximately 27% population of myeloid blasts in this patient with history of myelodysplastic syndrome; expressing CD34, CD117, variable CD33, partial CD56, variable HLA-DR, partial dim CD7, CD38 and dim CD45 ([id number]). 5:16 PM T [facility] Gross Description B. LEFT A single specimen is received in formalin labeled bone marrow biopsy left posterior iliac crest and consists of 1 piece(s) of red/white tissue measuring 0.9 cm in length 0.2 cm in diameter. The specimen is submitted in to Histology for decalcification and routine processing. Cold Time: <1m 5:16 PM [facility] Note: A resident was involved in the service. I attest I examined the relevant preparations for the specimens and confirmed the diagnosis or interpretation. 5:16 PM T [facility] Bone Marrow Peripheral blood specimen / Unknown Non-blood Collection / Unknown 01/12/2025 9:55 AM EDT 01/12/2025 11:43 AM EDT Bone marrow specimen (specimen) Specimen from bone marrow obtained by biopsy / Unknown 01/12/2025 9:55 AM EDT 01/12/2025 11:43 AM EDT Bone marrow specimen (specimen) Peripheral blood specimen / Unknown 01/12/2025 9:55 AM EDT 01/12/2025 11:43 AM EDT New Mckinney MD LAB PATHOLOGY ORDERABLES Edit ed Result - Final [facility] [address] [place] [address] * (ABNORMAL) CBC and Differential (01/12/2025 9:15 AM EDT) WBC Count 1.31(L) 3.70 - 10.30 10*3/uL LAB HEMATOLOGY METHOD 01/12/2025 9:58 AM EDT [facility] RBC Count 2.70(L) 3.90 - 5.20 10*6/uL LAB HEMATOLOGY METHOD 01/12/2025 9:58 AM EDT [facility] HGB 8.4(L) 11.2 - 15.7 g/dL LAB HEMATOLOGY METHOD 01/12/2025 9:58 AM EDT [facility] HCT 25.0(L) 34.0 - 45.0 % LAB HEMATOLOGY METHOD 01/12/2025 9:58 AM EDT [facility] Platelet Count 31(L) 155 - 369 10*3/uL LAB HEMATOLOGY METHOD 01/12/2025 9:58 AM EDT [facility] MCV 93 79 - 98 fL LAB HEMATOLOGY METHOD 01/12/2025 9:58 AM EDT [facility] MCH 31.1 26.0 - 32.0 pg LAB HEMATOLOGY METHOD 01/12/2025 9:58 AM EDT [facility] MCHC 33.6 30.7 - 35.5 g/dL LAB HEMATOLOGY METHOD 01/12/2025 9:58 AM EDT [facility] RDW 20.0(H) 11.5 - 14.5 % LAB HEMATOLOGY METHOD 01/12/2025 9:58 AM EDT [facility] MPV 8.8 8.8 - 12.5 fL LAB HEMATOLOGY METHOD 01/12/2025 9:58 AM EDT [facility] nRBC 3.1(H) <=0.0 per 100 WBCs LAB HEMATOLOGY METHOD 01/12/2025 9:58 AM EDT [facility] Differential Type Automated LAB HEMATOLOGY METHOD 01/12/2025 9:58 AM EDT [facility] Neutrophils % 19 % LAB HEMATOLOGY METHOD 01/12/2025 9:58 AM EDT [facility] Lymphocytes % 64 % LAB HEMATOLOGY METHOD 01/12/2025 9:58 AM EDT [facility] Monocytes % 15 % LAB HEMATOLOGY METHOD 01/12/2025 9:58 AM EDT [facility] Eosinophils % 2 % LAB HEMATOLOGY METHOD 01/12/2025 9:58 AM EDT [facility] Basophils % 0 % LAB HEMATOLOGY METHOD 01/12/2025 9:58 AM EDT [facility] Immature Granulocytes % 0 % LAB HEMATOLOGY METHOD 01/12/2025 9:58 AM EDT [facility] Neutrophils Absolute 0.25(LL) 1.60 - 6.10 10*3/uL LAB HEMATOLOGY METHOD 01/12/2025 9:58 AM EDT [facility] Lymphocytes Absolute 0.84(L) 1.20 - 3.90 10*3/uL LAB HEMATOLOGY METHOD 01/12/2025 9:58 AM EDT [facility] Monocytes Absolute 0.20(L) 0.30 - 0.90 10*3/uL LAB HEMATOLOGY METHOD 01/12/2025 9:58 AM EDT [facility] Eosinophils Absolute 0.02 0.00 - 0.50 10*3/uL LAB HEMATOLOGY METHOD 01/12/2025 9:58 AM EDT [facility] Basophils Absolute 0.00 0.00 - 0.10 10*3/uL LAB HEMATOLOGY METHOD 01/12/2025 9:58 AM EDT [facility] Immature Granulocytes Absolute 0.00 0.00 - 0.06 10*3/uL LAB HEMATOLOGY METHOD 01/12/2025 9:58 AM EDT [facility] Blood Blood sample taken from central line / Unknown (Port) Long-term Catheter / Unknown 01/12/2025 9:15 AM EDT 01/12/2025 9:31 AM EDT [facility] - 01/12/2025 9:58 AM EDT Therapeutic decision making should be based on absolute values, rather than percentages. us New Mckinney MD LAB BLOOD ORDERABLES Final Re sult [facility] [address] [place] [address] * (ABNORMAL) Comprehensive Metabolic Panel, Plasma (01/12/2025 9:15 AM EDT) Glucose, Plasma 121(H) 74 - 99 mg/dL 01/12/2025 10:02 AM EDT [facility] BUN, Plasma 24(H) 8 - 23 mg/dL 01/12/2025 10:02 AM EDT [facility] Creatinine, Plasma 1.19(H) 0.60 - 1.10 mg/dL 01/12/2025 10:02 AM EDT [facility] BUN/Creatinine Ratio 20 01/12/2025 10:02 AM EDT [facility] Sodium, Plasma 138 136 - 145 mmol/L 01/12/2025 10:02 AM EDT [facility] Potassium, Plasma 3.9 3.6 - 4.9 mmol/L 01/12/2025 10:02 AM EDT [facility] Chloride, Plasma 105 97 - 107 mmol/L 01/12/2025 10:02 AM EDT [facility] CO2, Plasma 21(L) 22 - 29 mmol/L 01/12/2025 10:02 AM EDT [facility] Anion Gap 12 6 - 16 mmol/L 01/12/2025 10:02 AM EDT [facility] Total Calcium, Plasma 9.7 8.9 - 10.2 mg/dL 01/12/2025 10:02 AM EDT [facility] Total Protein 6.1(L) 6.3 - 7.9 g/dL 01/12/2025 10:02 AM EDT [facility] Albumin, Plasma 3.9 3.5 - 5.2 g/dL 01/12/2025 10:02 AM EDT [facility] AST, Plasma 28 10 - 35 U/L 01/12/2025 10:02 AM EDT [facility] ALT, Plasma 12 10 - 35 U/L 01/12/2025 10:02 AM EDT [facility] Alkaline Phosphatase, Plasma 43(L) 46 - 142 U/L 01/12/2025 10:02 AM EDT [facility] Total Bilirubin, Plasma 0.5 0.2 - 1.1 mg/dL 01/12/2025 10:02 AM EDT [facility] eGFRcr 48.1 mL/min/1.7 3m*2 01/12/2025 10:02 AM EDT [facility] Comment:Reported eGFRcr in m L/min/1.73m2 is based the CKD-EPI 2020 equation that does not use a race coefficient. 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
--- OUTSIDE RECORDS SUMMARY | 2025-01-27 14:00 | XMS_ITS | Encounter Summary ---
Author Organization Healthcare Address [address] [place] [address] Care Team Providers Care Direct Marketing Executive Name Role Phone Jevon Vazquez MD Primary Care Provider Reason for Visit * Reason Comments Labs Port Flush Encounter Details Date Type Department Care Team ([facility] Contact Info) Description 01/27/2025 3:00 PM EDT Clinical Support [facility] Hematology/BMT and Cellular Therapy Program [address] [place] [phone] Oscar Cortez, RN Social History Tobacco Use [...] Team ([facility] Contact Info) Description 04/02/2025 10:30 AM EST Clinical Support [facility] Hematology/BMT and Cellular Therapy Program [address] [phone] 04/02/2025 11:00 AM EST Office Visit [facility] Hematology/BMT and Cellular Therapy Program [address] [phone] Zonia Hoffman, FINANCE ATTORNEY 800 [facility] [address] [place] [phone] documented as of this encounter Visit Diagnoses Not on filedocumented in this encounter Additional Health Concerns Assessment Noted Time A fall risk assessment has been complete d for the patient 01/27/2025 3:25 PM EDT A Body Mass Index follow-up plan has been documented for the patient 05/28/2024 1:52 PM EST documented as of this encounter Care Teams Direct Marketing Executive Relationship Specialty Start Date End Date Jevon Vazquez MD [address] [place] [address] #1 #1 [place] [phone] PCP - General 03/23/22 documented as of this encounter
--- OUTSIDE RECORDS SUMMARY | 2025-01-27 14:30 | XMS_ITS | Encounter Summary ---
Author Organization [facility] Address [address] 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) New Mckinney MD [address] [address] Phone: tel: fax: [place] [address] Phone: tel: Referral ID Status Reason Start Date Expiration Date Visits Requested Visits Authorized [id number] Authorized Specialty Services Required 5 07/29/2026 1 1 * Consultation (Urgent) - Authorized Specialty Diagnoses / Procedures Referred By Contac t Referred To Contact Medical Oncology Diagnoses 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) New Mckinney MD [address] [place] [phone] Phone: tel: fax: [facility] [address] [place] [address] Phone: tel: Referral ID Status Reason Start Date Expiration Date Visits Requested Visits Authorized [id number] Authorized Specialty Services Required 5 07/29/2026 1 1 Encounter Details Date Type Department Care Team (Latest Contact Info) Description 01/27/2025 3:30 PM EDT Office Visit [facility] Hematology/BMT and Cellular Therapy Program [address] [place] [address] New Mckinney MD 800 [facility] [address] [place] [address] Encounter for antineoplastic immunotherapy (Primary [...] 12/2023- seen by Dr. Manzano in [facility] for evaluation of anemia and lymphocytosis. B12/folate [...] interphase cells examined show a deletion of [id number]. Next generation sequencing: Abnormal: TP53 (c.814G>A; p.[id number]) frequency 45%, DMNT3A (c.1522delC; p.[id number]) frequency 48%, RUNX1 (c.336_338delGCC; p.[id number]) frequency 35% Azacitidine + Venetoclax Cycle 1: [...] monthly. - Will send referrals to [facility] and [facility] for clinical trial evaluations. 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 Check CBC x 3 times/week at [facility] Labs reviewed today, Hgb 7.7 , platelets [...] Gerardo Pandey D.O. Hematology and Oncology Fellow [facility] Patient care and management discussed with attending, [...] understand that therapeutic options are limited, and nbjok-kz-ritb discussions remain essential moving forward. We will start oral decitabine and refer to [place] and [facility] for clinical trial evaluations * Progress [...] Cycle 2: 03/22/24 Assessment/Plan: Rx sent to [facility]. Refills due 02/2025. Patient [...] Upcoming Encounters Date Type Department Care Team ([facility] st Contact Info) Description 04/02/2025 10:30 AM EST Clinical Support [facility] Hematology/BMT and Cellular Therapy Program [address] [place] [phone] 04/02/2025 11:00 AM EST Office Visit [facility] Hematology/BMT and Cellular Therapy Program [address] [phone] Zonia Hoffman, METAL DOOR ASSEMBLER 800 [facility] [address] [place] [phone] Scheduled Referrals Name Type Priority Associated Diagnoses [...] - 99 mg/dL 01/27/2025 4:26 PM EDT [facility] BUN, Plasma 22 8 - 23 mg/dL 01/27/2025 4:26 PM EDT [facility] Creatinine, Plasma 1.10 0.60 - 1.10 mg/dL 01/27/2025 4:26 PM EDT [facility] BUN/Creatinine Ratio 20 01/27/2025 4:26 PM EDT [facility] Sodium, Plasma 138 136 - 145 mmol/L 01/27/2025 4:26 PM EDT [facility] Potassium, Plasma 4.6 3.6 - 4.9 mmol/L 01/27/2025 4:26 PM EDT [facility] Chloride, Plasma 106 97 - 107 mmol/L 01/27/2025 4:26 PM EDT [facility] CO2, Plasma 22 22 - 29 mmol/L 01/27/2025 4:26 PM EDT [facility] Anion Gap 10 6 - 16 mmol/L 01/27/2025 4:26 PM EDT [facility] Total Calcium, Plasma 9.6 8.9 - 10.2 mg/dL 01/27/2025 4:26 PM EDT [facility] Total Protein 6.2(L) 6.3 - 7.9 g/dL 01/27/2025 4:26 PM EDT [facility] Albumin, Plasma 3.9 3.5 - 5.2 g/dL 01/27/2025 4:26 PM EDT [facility] AST, Plasma 33 10 - 35 U/L 01/27/2025 4:26 PM EDT [facility] ALT, Plasma 11 10 - 35 U/L 01/27/2025 4:26 PM EDT [facility] Alkaline Phosphatase, Plasma 43(L) 46 - 142 U/L 01/27/2025 4:26 PM EDT [facility] Total Bilirubin, Plasma 0.5 0.2 - 1.1 mg/dL 01/27/2025 4:26 PM EDT [facility] eGFRcr 52.8 mL/min/1.7 3m*2 01/27/2025 4:26 PM EDT [facility] Comment:Reported eGFRcr in m L/min/1.73m2 is based the CKD-EPI 2020 equation that does not use a race coefficient. Blood Blood sample taken from central line / Unknown (Port) Long-term Catheter / Unknown 01/27/2025 3:00 PM EDT 01/27/2025 3:54 PM EDT us New Mckinney MD LAB BLOOD ORDERABLES Final Re sult [facility] [address] [place] [address] * (ABNORMAL) CBC and Differential (01/27/2025 3:00 PM EDT) WBC Count 1.22(L) 3.70 - 10.30 10*3/uL LAB HEMATOLOGY METHOD 01/27/2025 3:21 PM EDT [facility] RBC Count 2.90(L) 3.90 - 5.20 10*6/uL LAB HEMATOLOGY METHOD 01/27/2025 3:21 PM EDT [facility] HGB 8.9(L) 11.2 - 15.7 g/dL LAB HEMATOLOGY METHOD 01/27/2025 3:21 PM EDT [facility] HCT 26.3(L) 34.0 - 45.0 % LAB HEMATOLOGY METHOD 01/27/2025 3:21 PM EDT [facility] Platelet Count 23(L) 155 - 369 10*3/uL LAB HEMATOLOGY METHOD 01/27/2025 3:21 PM EDT [facility] MCV 91 79 - 98 fL LAB HEMATOLOGY METHOD 01/27/2025 3:21 PM EDT [facility] MCH 30.7 26.0 - 32.0 pg LAB HEMATOLOGY METHOD 01/27/2025 3:21 PM EDT [facility] MCHC 33.8 30.7 - 35.5 g/dL LAB HEMATOLOGY METHOD 01/27/2025 3:21 PM EDT [facility] RDW 17.7(H) 11.5 - 14.5 % LAB HEMATOLOGY METHOD 01/27/2025 3:21 PM EDT [facility] MPV 9.0 8.8 - 12.5 fL LAB HEMATOLOGY METHOD 01/27/2025 3:21 PM EDT [facility] nRBC 2.5(H) <=0.0 per 100 WBCs LAB HEMATOLOGY METHOD 01/27/2025 3:21 PM EDT [facility] Differential Type Automated LAB HEMATOLOGY METHOD 01/27/2025 3:21 PM EDT [facility] Neutrophils % 9 % LAB HEMATOLOGY METHOD 01/27/2025 3:21 PM EDT [facility] Lymphocytes % 78 % LAB HEMATOLOGY METHOD 01/27/2025 3:21 PM EDT [facility] Monocytes % 12 % LAB HEMATOLOGY METHOD 01/27/2025 3:21 PM EDT [facility] Eosinophils % 1 % LAB HEMATOLOGY METHOD 01/27/2025 3:21 PM EDT [facility] Basophils % 0 % LAB HEMATOLOGY METHOD 01/27/2025 3:21 PM EDT [facility] Immature Granulocytes % 0 % LAB HEMATOLOGY METHOD 01/27/2025 3:21 PM EDT [facility] Neutrophils Absolute 0.11(LL) 1.60 - 6.10 10*3/uL LAB HEMATOLOGY METHOD 01/27/2025 3:21 PM EDT [facility] Lymphocytes Absolute 0.95(L) 1.20 - 3.90 10*3/uL LAB HEMATOLOGY METHOD 01/27/2025 3:21 PM EDT [facility] Monocytes Absolute 0.15(L) 0.30 - 0.90 10*3/uL LAB HEMATOLOGY METHOD 01/27/2025 3:21 PM EDT [facility] Eosinophils Absolute 0.01 0.00 - 0.50 10*3/uL LAB HEMATOLOGY METHOD 01/27/2025 3:21 PM EDT [facility] Basophils Absolute 0.00 0.00 - 0.10 10*3/uL LAB HEMATOLOGY METHOD 01/27/2025 3:21 PM EDT [facility] Immature Granulocytes Absolute 0.00 0.00 - 0.06 10*3/uL LAB HEMATOLOGY METHOD 01/27/2025 3:21 PM EDT [facility] Blood Blood sample taken from central line / Unknown (Port) Long-term Catheter / Unknown 01/27/2025 3:00 PM EDT 01/27/2025 3:12 PM EDT Narrative [facility] - 01/27/2025 3:21 PM EDT Therapeutic decision making should be based on absolute values, rather than percentages. New Mckinney MD LAB BLOOD ORDERABLES Final Re sult [facility] [address] [place] [address] documented in this encounter Visit Diagnoses Diagnosis [...] as of this encounter Care Teams Supervisor Frame Sample And Pattern Relationship Specialty Start Date End Date Jevon Vazquez MD [address] [place] [address] #1 #1 [place] [phone] PCP - General 03/23/22 documented as of this encounter
--- OUTSIDE RECORDS SUMMARY | 2025-03-03 13:00 | XMS_ITS | Encounter Summary ---
Author Organization [facility] Address [address] [place] [address] Care Team Providers Care Catalyst Operator Name Role Phone Jevon Vazquez MD Primary Care Provider [phone] Reason for Visit * Reason Comments Labs Only Encounter Details Date Type Department Care Team ([facility] Contact Info) Description 03/03/2025 1:00 PM EST Clinical Support [facility] Hematology/BMT and Cellular Therapy Program [address] [place] [phone] Jyoti Kemp Acute myeloid leukemia not having [...] [facility] Description 04/02/2025 10:30 AM EST Clinical Support [facility] Hematology/BMT and Cellular Therapy Program [address] [phone] 04/02/2025 11:00 AM EST Office Visit [facility] Hematology/BMT and Cellular Therapy Program [address] [phone] Zonia Hoffman, FIRE SUPPORT MAN 800 [facility] [address] [place] [phone] documented as of this encounter Procedures Procedure [...] LAB HEMATOLOGY METHOD 03/03/2025 1:37 PM EST [facility] RBC Count 3.19(L) 3.90 - 5.20 10*6/uL LAB HEMATOLOGY METHOD 03/03/2025 1:37 PM EST [facility] HGB 9.2(L) 11.2 - 15.7 g/dL LAB HEMATOLOGY METHOD 03/03/2025 1:37 PM EST [facility] HCT 27.1(L) 34.0 - 45.0 % LAB HEMATOLOGY METHOD 03/03/2025 1:37 PM EST [facility] Platelet Count 10(LL) 155 - 369 10*3/uL LAB HEMATOLOGY METHOD 03/03/2025 1:37 PM EST [facility] MCV 85 79 - 98 fL LAB HEMATOLOGY METHOD 03/03/2025 1:37 PM EST [facility] MCH 28.8 26.0 - 32.0 pg LAB HEMATOLOGY METHOD 03/03/2025 1:37 PM EST [facility] MCHC 33.9 30.7 - 35.5 g/dL LAB HEMATOLOGY METHOD 03/03/2025 1:37 PM EST [facility] RDW 15.0(H) 11.5 - 14.5 % LAB HEMATOLOGY METHOD 03/03/2025 1:37 PM EST [facility] MPV LAB HEMATOLOGY METHOD 03/03/2025 1:37 PM EST [facility] Comment:Not Measured nRBC 0.0 <=0.0 per 100 WBCs LAB HEMATOLOGY METHOD 03/03/2025 1:37 PM EST [facility] Differential Type Automated LAB HEMATOLOGY METHOD 03/03/2025 1:37 PM EST [facility] Neutrophils % 2 % LAB HEMATOLOGY METHOD 03/03/2025 1:37 PM EST [facility] Lymphocytes % 91 % LAB HEMATOLOGY METHOD 03/03/2025 1:37 PM EST [facility] Monocytes % 7 % LAB HEMATOLOGY METHOD 03/03/2025 1:37 PM EST [facility] Eosinophils % 0 % LAB HEMATOLOGY METHOD 03/03/2025 1:37 PM EST [facility] Basophils % 0 % LAB HEMATOLOGY METHOD 03/03/2025 1:37 PM EST [facility] Immature Granulocytes % 0 % LAB HEMATOLOGY METHOD 03/03/2025 1:37 PM EST [facility] Neutrophils Absolute 0.01(LL) 1.60 - 6.10 10*3/uL LAB HEMATOLOGY METHOD 03/03/2025 1:37 PM EST [facility] Lymphocytes Absolute 0.57(L) 1.20 - 3.90 10*3/uL LAB HEMATOLOGY METHOD 03/03/2025 1:37 PM EST [facility] Monocytes Absolute 0.04(L) 0.30 - 0.90 10*3/uL LAB HEMATOLOGY METHOD 03/03/2025 1:37 PM EST [facility] Eosinophils Absolute 0.00 0.00 - 0.50 10*3/uL LAB HEMATOLOGY METHOD 03/03/2025 1:37 PM EST [facility] Basophils Absolute 0.00 0.00 - 0.10 10*3/uL LAB HEMATOLOGY METHOD 03/03/2025 1:37 PM EST [facility] Immature Granulocytes Absolute 0.00 0.00 - 0.06 10*3/uL LAB HEMATOLOGY METHOD 03/03/2025 1:37 PM EST [facility] Blood Venous blood specimen / Unknown (Port) Long-term Catheter / Unknown 03/03/2025 12:51 PM EST 03/03/2025 1:11 PM EST [facility] - 03/03/2025 1:37 PM EST Therapeutic decision making should be based on absolute values, rather than percentages. us New Mckinney MD LAB BLOOD ORDERABLES Final Re sult [facility] [address] [place] [phone] * (ABNORMAL) Comprehensive Metabolic Panel, Plasma (03/03/2025 12:51 PM EST) Glucose, Plasma 179(H) 74 - 99 mg/dL 03/03/2025 1:30 PM [facility] BUN, Plasma 20 8 - 23 mg/dL 03/03/2025 1:30 PM EST [facility] Creatinine, Plasma 0.87 0.60 - 1.10 mg/dL 03/03/2025 1:30 PM EST [facility] BUN/Creatinine Ratio 23 03/03/2025 1:30 PM EST [facility] Sodium, Plasma 136 136 - 145 mmol/L 03/03/2025 1:30 PM [facility] Potassium, Plasma 4.2 3.6 - 4.9 mmol/L 03/03/2025 1:30 PM [facility] Chloride, Plasma 105 97 - 107 mmol/L 03/03/2025 1:30 PM [facility] CO2, Plasma 18(L) 22 - 29 mmol/L 03/03/2025 1:30 PM [facility] Anion Gap 13 6 - 16 mmol/L 03/03/2025 1:30 PM [facility] Total Calcium, Plasma 9.0 8.9 - 10.2 mg/dL 03/03/2025 1:30 PM [facility] Total Protein 6.1(L) 6.3 - 7.9 g/dL 03/03/2025 1:30 PM [facility] Albumin, Plasma 3.1(L) 3.5 - 5.2 g/dL 03/03/2025 1:30 PM [facility] AST, Plasma 12 10 - 35 U/L 03/03/2025 1:30 PM [facility] ALT, Plasma 5(L) 10 - 35 U/L 03/03/2025 1:30 PM [facility] Alkaline Phosphatase, Plasma 41(L) 46 - 142 U/L 03/03/2025 1:30 PM [facility] Total Bilirubin, Plasma 0.6 0.2 - 1.1 mg/dL 03/03/2025 1:30 PM [facility] eGFRcr 70.0 mL/min/1.7 3m*2 03/03/2025 1:30 PM EST [facility] Comment:Reported eGFRcr in m L/min/1.73m2 is based the CKD-EPI 2020 equation that does not use a race coefficient. 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
--- OUTSIDE RECORDS SUMMARY | 2025-03-03 13:30 | XMS_ITS | Encounter Summary ---
Author Organization Healthcare Address [address] [place] [address] Care Team Providers Care Pattern Carrier Name Role Phone Jevon Vazquez MD Primary Care Provider [phone] Reason for Visit * Reason Comments Acute Myeloid Leukemia Encounter Details Date Type Department Care Team ([facility] Contact Info) Description 03/03/2025 1:30 PM EST Office Visit [facility] Hematology/BMT and Cellular Therapy Program [address] [phone] Zonia Hoffman, MEDICAL MANAGER 800 [facility] [address] [place] [phone] Acute myeloid leukemia not having achieved remission [...] Sign Reading Time Taken Comments Blood Pressure 123/71 03/03/2025 1:02 PM EST Pulse 101 03/03/2025 1:02 PM EST Temperature 36.6 C (97.8 F) 03/03/2025 1:02 PM EST Respiratory Rate 16 03/03/2025 1:02 PM EST Oxygen Saturation 100% 03/03/2025 1:02 PM EST Inhaled Oxygen Concentration - - Weight 53.5 kg (117 lb 15.1 oz) 03/03/2025 1:02 PM EST Height 162.6 cm (5' 4.02 ) 03/03/2025 1:02 PM ES T Body Mass Index 20.24 03/03/2025 1:02 PM EST documented in this encounter Functional Status * Over the past 2 weeks, how often have you been bothered by any of the following problems? Question Answer Date of Assessment Author Little interest or pleasure in doing things Not at all 03/03/2025 1:19 PM EST Malina Kearney Feeling down, depressed, or hopeless Not at all 02/14 1:19 PM EST Malina Kearney Patient Health Questionnaire-2 Score 0 02/14 1:19 PM EST Malina Kearney documented as of this encounter Miscellaneous Notes * Progress Notes - Judit Higuera, PharmD - 03/03/2025 1:30 PM EST Pharmacy Hematology/Oncology Treatment Plan Note Ashly Hernández is a 74 y.o. female with AML. Cancer Staging No matching staging information was found for the patient. Study Patient: No Treatment Plan reviewed for decitabine/cedazuridine [x] Follow-Up Clinical Review for Cycle 2 Interval History: BMBx from 01/12 shows 7-10% blasts. Patient has been off treatment due to cytopenias since 03/2024. Due to length of travel time patient is interested in treatment with decitabine/cedazuridine. Today's Wt: Wt Readings from Last 1 Encounters: 03/03/25 53.5 kg (117 lb 15.1 oz) Dosing Wt: n/a Dosing Ht: n/a DosingBSA: n/a Recent Labs: Lab Results Component Value Date WBC 0.62 (LL) 03/03/2025 NEUTROABS 0.01 (LL) 03/03/2025 HGB 9.2 (L) 03/03/2025 PLT 10 (LL) 03/03/2025 Lab Results Component Value Date GLUCOSE 179 (H) 03/03/2025 NA 136 03/03/2025 K 4.2 03/03/2025 MG 1.8 (L) 02/05/2024 CALCIUM 9.0 03/03/2025 PHOS 2.8 02/05/2024 URATECRYU 1.3 (L) 02/05/2024 BUN 20 03/03/2025 CREATININE 0.87 03/03/2025 Lab Results Component Value Date AST 12 03/03/2025 ALT 5 (L) 03/03/2025 ALKPHOS 41 (L) 03/03/2025 BILITOT 0.6 03/03/2025 No results found for: TSH Visit Vitals BP 123/71 (BP Location: Left arm, Patient Position: Sitting, BP Cuff Size: Adult) Pulse 101 Temp 36.6 ??C (97.8 ??F) (Temporal) Resp 16 Other Relevant Monitoring: Lab Results Component Value Date HEPBSAG Negative 01/07/2024 HEPBCAB Negative 01/07/2024 HIV Non Reactive 01/07/2024 Treatment Plan: Decitabine/cedazuridine 35 mg/100 mg PO Days 1-5 Every 28 days [x] No dose adjustments Current Treatment Plan History: Decitabine/cedazuridine Cycle 1: 01/29/25 Cycle 2: 03/03/25 Prior Treatment History: Azacitidine + Venetoclax Cycle 1: 02/05/24 Cycle 2: 03/22/24 Assessment/Plan: Rx sent to [facility]. Refills due 03/2025. Patient will return to clinic in 4 weeks. Will follow-up at that time. * Progress Notes - Zonia Hoffman, MEDICAL MANAGER - 03/03/2025 1:30 PM EST [facility] Division of Hematology and Blood & Marrow Transplant Follow-up Note Patient ID: Ashly Hernández is a 74 y.o. female. Referring Physician: No referring provider defined for this encounter. Primary Care Provider: Jevon Vazquez MD Chief Complaint: Chief Complaint Patient presents with Acute Myeloid Leukemia HEMATOLOGIC HISTORY Oncology History Overview Note 09/2023- routine labs showed mild pancytopenia, with a WBC 2.3 k/??L, Hb 10.2 g/dL, and platelets of70 k/??L. 12/2023- seen by Dr. Manzano in [facility] for evaluation of anemia and lymphocytosis. B12/folate [...] 38, and moderate to dim CD45). Cytogenetics: 43~44, X, -X, add(5)(q23), del(5)(q13q33), todd(7)ins?(7)(q11.2q11.2)t(7;12)(q11.2;q13), -12, todd(17)add(17)(p13.2)add(17)(q21)[16] / 88, XX, idemx2[cp3] / 46, XY[1] Next generation sequencing: TP53 - c.814G>A; p.[id number] - Pathogenic - VAF 45% TP53 - c.559G>A; p.[id number] - Pathogenic - VAF 49% DNMT3A - c.1522delC; p.[id number] - Pathogenic - VAF 48% RUNX1 - c.336_338delGCC; p.Ran969ecv - Pathogenic - VAF 35% 02/05/2024- started induction chemotherapy with azacitidine and venetoclax. 02/25/2024- bone marrow exam: hypercellular bone marrow with erythroid predominant maturing hematopoiesis and approximately 2-3% blasts. Cytogenetics were again complex. 03/21/2025- CBC was consistent with complete remission with normalization of WBC and platelets. Cycle 2 of AZA/KOFFI was started. The treatment was complicated by severe persistent pancytopenia 05/28/2024- bone marrow exam revealed aplasia with marrow cellularity < 10%. Cytogenetics were normal. - Treatment holiday was pursued. ANC normalized but platelets continued to be < 20 k/ L. 09/19/2024- repeat bone marrow biopsy revealed continued marrow aplasia, with severely hypcellular marrow < 5%, and absence of blasts. Cytogenetics were normal but NGS revealed TP53 and DNMT3A, withpersistent variants. - She continued to have persistent thrombocytopenia < 20 k/ L. Treatment holiday was continued 01/12/2025- bone marrow biopsy revealed hypocellular bone marrow (5-15%) with markedly decreased megakaryocytes, decreased maturing granulopoiesis, approximately 7-10% variably distributed blasts and more than 50% ring sideroblasts. Acute myeloid leukemia not having achieved remission (CMS/HCC) 01/21/2024 Initial Diagnosis Acute myeloid leukemia not having achieved remission (CMS/HCC) 02/05/2024 - 04/16/2024 Chemotherapy azaCITIDine (Vidaza) 130 mg in sodium [...] (02/10/2024), 130 mg (02/11/2024), 130 mg (03/28/2024) Interval History: History of Present Illness The patient is a 74-year-old female who presents for evaluation of AML and treatment related mouth sores, nausea, vomiting, and sleep issues. She reports persistent discomfort, characterized by an inability to consume food due to oral pain. She experiences intermittent headaches and dizziness, despite maintaining adequate hydration. Occasional nausea and vomiting are reported, but no episodes of diarrhea or fever. For oral symptoms, she has been using Magic Mouthwash and warm salt water, which she believes are gradually improving. No bleeding has been noted. On 02/25/2025, she received two units of platelets, and on 02/27/2025, one unit of blood and one unit of platelets. She anticipates the need for additional platelets tomorrow. Her white blood cell count has shown a slight increase. She expresses interest in resuming her medication regimen. Her initial chemotherapy treatment in 02/2024 was beneficial, with improvements noted following blood and platelet transfusions. However, she reports no current benefit from these interventions. She is seeking stronger analgesics for her oral pain and a sleep aid for use when not on pain medication. She declines the offer of palliative care at home. Past Medical History Past Medical History[1] Surgical History: Surgical History[2] Social History: Social History[3] Family History: Family History[4] Allergies[5] Medication List Accurate as of March 03, 2025 4:00 PM. If you have any questions, ask your nurse or doctor. START taking these medications oxyCODONE 5 MG immediate release tablet; Commonly known as: Roxicodone; Take 1 tablet by mouth every 8 hours as needed for severe pain.; Started by: Zonia Hoffman APRN CONTINUE taking these medications acyclovir 800 MG tablet; Commonly known as: Zovirax; TAKE 1 TABLET BY MOUTH TWO TIMES A DAY amLODIPine 5 MG tablet; Commonly known as: Norvasc atorvastatin 10 MG tablet; Commonly known as: Lipitor fenofibrate 145 MG tablet; Commonly known as: Tricor fluconazole 200 MG tablet; Commonly known as: Diflucan; TAKE 2 TABLETS BY MOUTH DAILY Inqovi 35-100 MG tablet tablet; Generic drug: decitabine-cedazuridine; TAKE 1 TABLET BY MOUTH DAILY FOR 5 DAYS. levoFLOXacin 500 MG tablet; Commonly known as: Levaquin; TAKE 1 TABLET BY MOUTH DAILY lidocaine 2 % solution; Commonly known as: Xylocaine lidocaine-prilocaine 2.5-2.5 % cream; Commonly known as: Emla; Please apply to port area 30-45 min prior to access magic mouthwash (lidocaine, diphenhydramine, Maalox 1:1:1); Swish and swallow 10 mL every 4 hours as needed for mucositis (mouth sores). Swish and swallow pioglitazone 30 MG tablet; Commonly known as: Actos potassium chloride CR 20 MEQ ER tablet; Commonly known as: K-Tab; Take 1 tablet by mouth twice daily prochlorperazine 10 MG tablet; Commonly known as: Compazine; Take 1 tablet (10 mg) by mouth every 6 (six) hours if needed for nausea or vomiting. rosuvastatin 5 MG tablet; Commonly known as: Crestor; TAKE 1 TABLET BY MOUTH ONCE DAILY AT NIGHT venetoclax 100 MG tablet; Commonly known as: Venclexta; Take 2 tablets (200 mg) by mouth 1 (one) time each day. Take on days 1 - 21 (7 days off) of a 28 day cycle. Review of Systems: Review of Systems - Oncology 14- point ROS is reviewed and negative except in HPI. Physical Exam: Visit Vitals BP 123/71 (BP Location: Left arm, Patient Position: Sitting, BP Cuff Size: Adult) Pulse 101 Temp 36.6 ??C (97.8 ??F) (Temporal) Resp 16 Ht 1.626 m (5' 4.02 ) Wt 53.5 kg (117 lb 15.1 oz) SpO2 100% BMI 20.24 kg/m?? OB Status Postmenopausal Smoking Status Never BSA 1.55 m?? KPS: 60, Requires occasional assistance, but is able to care for most of his personal needs (ECOG equivalent 2) Physical Exam Vitals reviewed. HENT: Mouth/Throat: Pharynx: Posterior oropharyngeal erythema present. Comments: Gingival hyperplasia Eyes: Extraocular Movements: Extraocular movements intact. Cardiovascular: Rate and Rhythm: Regular rhythm. Heart sounds: Normal heart sounds. Pulmonary: Effort: Pulmonary effort is normal. Breath sounds: Normal breath sounds. Musculoskeletal: General: No swelling. Skin: General: Skin is warm and dry. Neurological: Mental Status: She is alert and oriented to person, place, and time. Psychiatric: Mood and Affect: Mood normal. Behavior: Behavior normal. Physical Exam ENT: Oral mucosa shows signs of irritation and sores. No active bleeding noted. Results: Labs in last 18 hours CBC WBC 0.62 (LL) Hb 9.2 (L) Plt 10 (LL) Hct 27.1 (L) ANC 0.01 (LL) INR ??, PTT ??, Anti-Xa ?? BMP Na 136 Cl 105 BUN 20 Glu 179 (H) K 4.2 Co2 18 (L) Cr 0.87 Ca 9.0 iCa ?? Mg ??, Phos ?? Lactate ?? LFT AST 12 AlkPhos 41 (L) T Prot 6.1 (L) ALK 5 (L) Bili 0.6 Alb ?? D.Bili ?? 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 Hernández is 74-year-old female with myelodysplastic syndrome/acute myeloid leukemia harboring [...] ring sideroblasts, consistent with persistent, high-risk disease. Dr. Mckinney previously discussed with Ms. Toledo and her the [...] of meaningful long-term benefit is very limited. - She agreed to start Inqovi (decitabine and cedazuridine) 5x/week monthly. Plan: White blood cell count remains critically low. Mouth sores, nausea, and vomiting are present as side effects of treatment. A prescription for oxycodone will be provided, to be taken as needed for pain management. Additionally, a prescription for Magic Mouthwash will be sent to pharmacy. Continue using the Magic Mouthwash and warm salt water rinses. If the condition worsens, inform Jorge so that a palliative care team can be arranged for home visits. RTC 4 weeks prior to next cycle of Inqovi Pancytopenia related to chemotherapy/AML. Check CBC x [...] reviewing previous charts, reviewing results, and documenting. Ashly Hernández has verbally consented for Ambient Listening technology to assist in the generation of this documentation [facility] HEMATOLOGY/BMT AND CELLULAR THERAPY PROGRAM [address] [place] [phone] [1] Past Medical History: Diagnosis Date Degenerative disc disease, lumbar Essential hypertension Hyperlipidemia Leukemia (CMS/HCC) Pancytopenia Spinal stenosis Type 2 diabetes mellitus [2] Past Surgical History: Procedure Laterality Date BACK SURGERY CHOLECYSTECTOMY COLONOSCOPY HYSTERECTOMY LAMINECTOMY LUMBAR FUSION L3-4 L4-5 OBLIQUE LUMBAR INTERBODY FUSION L3-4 L4-5 POSTERIOR FUSION performed by Ivan [facility]w [facility] [3] Social History Tobacco Use Smoking status: Never Passive exposure: Never Smokeless tobacco: Never Vaping Use Vaping status: Never Used Substance Use Topics Alcohol use: Never Drug use: Never [4] Family History Problem Relation Name Age of Onset Heart Problem Mother Heart Problem Brother [5] No Known Allergies documented in this encounter Plan of Treatment Upcoming Encounters Date Type Department Care Team (Late st Contact Info) Description 04/02/2025 10:30 AM EST Clinical Support [facility] Hematology/BMT and Cellular Therapy Program [address] [place] [address] 04/02/2025 11:00 AM EST Office Visit [facility] Hematology/BMT and Cellular Therapy Program [address] [phone] Zonia Hoffman, MEDICAL MANAGER 800 [facility] [address] [place] [phone] documented as of this encounter Visit Diagnoses [...] documented as of this encounter Care Teams Pattern Carrier Relationship Specialty Start Date End Date Jevon Vazquez MD [address] [place] [address] #1 #1 [place] [address] PCP - General 03/23/22 documented as of this encounter
[2025-03-09] VITALS (12 sets, daily range): BP systolic 115–149; BP diastolic 49–92; PULSE 92–103; RESP 13–22; TEMP 36.7; O2SAT 94–100; BMI 20.9
--- NOTE | 2025-03-09 07:49 | ECG_ITS ---
APPROVED REPORT Exam: Resting ECG HR:101 bpm ECG Measurements Heart Rate 101 AXES MA 120 P 68 QRSd 93 QRS 77 QT 311 T 65 QTc 369 Conclusion SINUS TACHYCARDIA WITH OCCASIONAL SUPRAVENTRICULAR PREMATURE COMPLEXES ABNORMAL RHYTHM ECG UNCONFIRMED REPORT Electronically signed by : Lonnie Leavitt, 03/10/2025 15:23:17
--- NOTE | 2025-03-09 08:00 | XR_ITS ---
FINAL REPORT TECHNIQUE: Single view chest CLINICAL HISTORY: dyspnea COMPARISON: None FINDINGS: A portable view of the chest was obtained. A right Port-A-Cath is present, with the tip at the caval-atrial junction. Cardiac and mediastinal silhouettes are within normal limits. The lungs are clear. Changes of emphysema are present. There is no pleural effusion or pneumothorax. IMPRESSION: No acute process on this portable exam. Reviewed, Interpreted and Dictated by Shona Burgess MD Transcribed by Kandy De Leon Authenticated and [facility]
--- NOTE | 2025-03-09 08:01 | HMH.EDGENADL ---
Discharge Plan Disposition Chief Complaint: Weakness Prescriptions Prescriptions: No Action acyclovir 800 mg tablet 800 mg PO DAILY potassium chloride 20 mEq tablet,ER particles/crystals 20 meq PO BID Patient Comments: TAKE 1 TABLET BY MOUTH TWICE DAILY levofloxacin 500 mg tablet 500 mg PO DAILY fluconazole 200 mg tablet 200 mg PO DAILY rosuvastatin 5 mg tablet 5 mg PO DAILY Patient Comments: TAKE 1 TABLET BY MOUTH ONCE DAILY AT NIGHT fluticasone propionate 50 mcg/actuation spray,suspension 1 spray intranasal ONCE Patient Comments: USE 1 SPRAY(S) IN EACH NOSTRIL ONCE DAILY montelukast 10 mg tablet 10 mg PO DAILY Patient Comments: TAKE 1 TABLET BY MOUTH ONCE DAILY amlodipine 5 MG tablet 5 mg PO DAILY Qty: 15 0RF atorvastatin 10 mg Tablet 10 mg PO DAILY pioglitazone [Actos] 30 mg Tablet 30 mg PO DAILY fenofibrate nanocrystallized 145 mg Tablet 145 mg PO DAILY Referrals Follow up/Referrals: Nathaniel Vazquez MD [Primary Care Provider, Medical] - See instructions Clinical Impressions Clinical Impression: AML (acute myeloblastic leukemia), RADHA (acute kidney injury), DIC (disseminated intravascular coagulation), Acute mucositis, Elevated bilirubin, Generalized weakness, Generalized pain, Acute encephalopathy, Pancytopenia Print Language Print Language: Brazilian Discharge ED Provider: Deandra Leavitt General Adult HPI General Chief complaint: Weakness Stated complaint: weakness Time Seen by Provider: 03/09/25 07:51 History of Present Illness HPI narrative: Patient is a 74-year-old female with a 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 Palacio in [facility]. She was recently given her most recent infusion of chemotherapy on Sunday. She has known pancytopenia and ANC has been running well below 500. She denies any fevers but presents today to the emergency department with severe generalized weakness and soreness in her whole body. Related Data Home Medications ?Medication ?Instructions ?Recorded ?Confirmed atorvastatin 10 mg tablet 10 mg PO DAILY 12/13/23 03/06/25 fenofibrate nanocrystallized 145 145 mg PO DAILY 12/13/23 03/06/25 mg tablet pioglitazone 30 mg tablet (Actos) 30 mg PO DAILY 12/13/23 03/06/25 fluticasone propionate 50 1 spray intranasal ONCE 12/26/23 03/06/25 mcg/actuation nasal spray,suspension montelukast 10 mg tablet 10 mg PO DAILY 12/26/23 03/06/25 acyclovir 800 mg tablet 800 mg PO DAILY 05/23/24 03/06/25 fluconazole 200 mg tablet 200 mg PO DAILY 05/23/24 03/06/25 levofloxacin 500 mg tablet 500 mg PO DAILY 05/23/24 03/06/25 potassium chloride 20 mEq 20 meq PO BID 05/23/24 03/06/25 tablet,extended release(part/cryst) rosuvastatin 5 mg tablet 5 mg PO DAILY 05/23/24 03/06/25 Previous Rx's ?Medication ?Instructions ?Recorded amlodipine 5 mg tablet 5 mg PO DAILY #15 tabs 07/02/17 Allergies Allergy/AdvReac Type Severity Reaction Status Date / Time No Known Allergies Allergy Verified 03/06/25 12:21 [facility] Disclaimer: The information contained in this section may have been updated after the patient was seen, as this information can be updated by other users. Medical History Hyperlipidemia Hypertension Diabetes Surgical History Previous back surgery H/O hand surgery Hx of cholecystectomy H/O: hysterectomy Family History Other Heart disease Social History Smoking Status: Never smoker alcohol intake: never substance use type: denies use current occupational status: retired Travel in the last 8 weeks?: Inside the [place] household members: family housing: house Have you lived/traveled outside US in past 30 days?: No Contact w/someone who lives/traveled outside US past 30 days?: No Exposure to someone with infectious disease in past 14 days?: No Do you have a fever (greater than 100.4 F or 38 C)?: No Have you tested positive for COVID-19?: No Exposed to someone with COVID-19 in past 14 days?: No Do you have a sore throat?: No Do you have a cough?: No Do you have any weakness?: No Do you have any diarrhea?: No Are you experiencing any unusual bleeding?: No Do you have any muscle aches/pain?: No Do you have any abdominal pain?: No Are you experiencing loss of taste or smell?: No Other Medical History Have you received the Flu Vaccine for this season: No Have you received the Pneumonia Vaccine: Yes ROS Obtained: Yes All systems reviewed & no additional complaints except as documented Physical Exam General General appearance: cachectic ENT ENT exam: Present other (Dried blood on her lips dark dried blood in the back of her posterior oropharynx) Respiratory Respiratory exam: Present normal lung sounds bilaterally Cardiovascular Cardiovascular exam: Present regular rate and normal rhythm Abdominal Exam Abdominal exam: Present soft; Absent distention or tenderness Neurological Exam Neurological exam: Present alert and other (Nonfocal); Absent oriented X3 (Oriented to person and place but not time) Medical Decision Making Medical Records Screening: Per USPSTF and CDC recommendations, given the prevalence of disease in our region, it is our hospital?s policy to screen for HIV and viral Hepatitis for all patients aged 18 and over and those with ongoing risk factors. Russ Inquiry Pt receiving controlled substance: No Vital Signs: 03/09/25 07:45 03/09/25 07:45 03/09/25 08:00 Temperature 98.1 F 98.1 F Temperature Source Oral Pulse Rate 96 H 103 H Pulse Rate [Right Radial] 96 H Respiratory Rate 20 20 19 Blood Pressure 115/56 L 131/59 L Blood Pressure [Left Arm] 115/56 L Blood Pressure Mean [Left Arm] 75 02 Sat by Pulse Oximetry 100 100 99 03/09/25 08:04 03/09/25 08:30 03/09/25 09:15 Temperature Temperature Source Pulse Rate 96 H 92 H Pulse Rate [Right Radial] Respiratory Rate 20 18 Blood Pressure 126/54 L 126/54 L 147/63 H Blood Pressure [Left Arm] Blood Pressure Mean [Left Arm] 02 Sat by Pulse Oximetry 99 94 L 03/09/25 09:30 Temperature Temperature Source Pulse Rate Pulse Rate [Right Radial] Respiratory Rate 18 Blood Pressure 117/60 Blood Pressure [Left Arm] Blood Pressure Mean [Left Arm] 02 Sat by Pulse Oximetry Lab Data Lab results reviewed: Yes I reviewed the patient's lab results. Lab Results 03/09/25 07:54: WBC 0.6 L*, RBC 3.25 L D, Hgb 9.5 L, Hct 28.0 L, MCV 86.2, MCH 29.2, MCHC 33.9, RDW 13.6, Plt Count 13 L* D, Neut % (Auto) 1.6 L, Lymph % (Auto) 87.5 H, Forrest % (Auto) 10.9 H, Eos % (Auto) 0.0 L, Baso % (Auto) 0.0 L, Neut # (Auto) 0.0 L*, Lymph # (Auto) 0.6 L, Forrest # (Auto) 0.1, Eos # (Auto) 0.0, Baso # (Auto) 0.0, Total Counted 25, Lymphocytes % (Manual) 100 H, Platelet Estimate Marked decrease, RBC Morphology Not Reportable, Microcytosis 1+, Ovalocytes 1+, PT 13.5 H, INR 1.24 H, APTT 37.9 H, D-Dimer 4.86 H, Sodium 134 L, Potassium 4.1, Chloride 105, Carbon Dioxide 19 L, Anion Gap 14.1, BUN 32 H D, Creatinine 1.90 H D, Estimated Creat Clear 23, Estimated GFR 26 L, Est GFR ( Amer) 31 L D, Glucose 194 H, Calcium 9.6, Phosphorus 3.2, Magnesium 2.0, Total Bilirubin 1.6 H, AST 58 H D, ALT 30 D, Alkaline Phosphatase 55, Troponin I 0.02, Total Protein 6.6, Albumin 3.4 L, Globulin 3.2, Albumin/Globulin Ratio 1.1 03/09/25 08:06: VBG pH 7.43 H, VBG pCO2 30.9 L, VBG pO2 57.3 H, VBG HCO3 20.2 L, VBG Total CO2 21.1 L, VBG O2 Saturation 91.1 H, VBG Base Excess -3.2 L, VBG Lactic Acid 1.9 03/09/25 08:06: VBG Lactic Acid 1.9 03/09/25 08:10: Fibrinogen 616 H, Blood Type A Positive, Antibody Screen Negative 03/09/25 07:54 03/09/25 07:54 Orders (Tests/Meds): ED MEDICATIONS Generic Name Dose Route Start Last Admin Trade Name Freq PRN Reason Stop Dose Admin Sodium Chloride 250 mls @ 25 mls/hr 03/09/25 09:15 Sod Chlor 0.9% 250ml Bag IV 03/10/25 09:14 .Q10H OLE Discontinued Medications Generic Name Dose Route Start Last Admin Trade Name Freq PRN Reason Stop Dose Admin Lactated Ringer's 1,000 mls @ 999 mls/hr 03/09/25 08:00 03/09/25 08:36 Lactated Ringer's 1000 Ml Bag IV 03/09/25 09:00 999 mls/hr .Q1H1M OLE Administration ORDERS Category Date Time Status Type and Screen Stat BBK 03/09/25 08:10 Completed CXR --portable [XR chest portable] Stat Exams 03/09/25 08:00 Completed CBC w/Auto Diff [Complete Blood Count Auto Diff] Stat Lab 03/09/25 07:54 Completed CMP [Comprehensive Metabolic Panel] Stat Lab 03/09/25 07:54 Completed D-Dimer Stat Lab 03/09/25 07:54 Completed Fibrinogen Stat Lab 03/09/25 08:10 Completed Lactate Venous Stat Lab 03/09/25 08:06 Completed Magnesium Stat Lab 03/09/25 07:54 Completed PT/PTT Stat Lab 03/09/25 07:54 Completed Peripheral Smear Review Stat Lab 03/09/25 08:10 Received Phosphorous Stat Lab 03/09/25 07:54 Completed Trop I [Troponin I] Stat Lab 03/09/25 07:54 Completed Troponin I Q3H Lab 03/09/25 11:00 Ordered Troponin I Q3H Lab 03/09/25 14:00 Ordered UA [Urinalysis and Microscopic] Stat Lab 03/09/25 07:59 Ordered Blood Culture Stat Micro 03/09/25 08:29 Received Venous Blood Gas Stat RT 03/09/25 08:06 Completed Medical Decision Narrative: Cachectic very ill-appearing 74-year-old presents today with generalized weakness and bodyaches after chemo. She is noted to be pancytopenic including severe neutropenia. Differential includes infections, significant blood loss and anemia, mucositis/GI bleed, etc. Broad workup is pending. This seems to be clearly associated with her malignancy and she will likely need to be transferred to a higher level of care depending on her workup and findings. Reassessment 10:11 AM patient has multiple laboratory abnormalities. On further evaluation patient is persistently encephalopathic in the room who agrees with this. This is new for her. She also has acute kidney injury creatinine is 1.9 elevated from her baseline of 0.8. Also has an elevated total bilirubin and AST those are new as well. She has multiorgan dysfunction. D-dimer significant elevated PTT elevated PE T elevated and platelets are down. She has a history of pancytopenia but this appears to be acutely DIC in the setting of her AML and mucositis in her mouth and posterior oropharynx. We do not have blood products here that are irradiated etc. and would have to order from a central blood bank. Patient's prognosis is very poor I spoke with Dr. Palacio our oncologist here and also reviewed [facility]'s notes to discuss with the family whether or not they wanted to continue to pursue aggressive care or if they wanted to pursue palliative measures was not ready for this decision therefore we ultimately made a decision to send the patient to [facility] for further evaluation and management. No definitive evidence of sepsis that remains on the differential she is afebrile. Antibiotics held off at the moment. Critical Care Critical Care Time Critical Care Time: Yes Attestation: On 03/09/25, the high probability of a clinically significant, sudden or life threatening deterioration of the following system(s) required my full and direct attention, intervention and personal management. The time I documented below is in addition to time spent performing reported procedures but includes the following listed in this critical care notation. Total Time Total Critical Care Time: 65
--- OUTSIDE RECORDS SUMMARY | 2025-03-09 08:07 | XMS_ITS | Encounter Summary ---
Author Organization Healthcare Address [address] [place] [address] Care Team Providers Care Practical Nurse Name Role Phone Jevon Vazquez MD Primary Care Provider [phone] Encounter Details Date Type Department Care Team [...] Hematology/BMT and Cellular Therapy Program [address] [phone] 04/02/2025 11:00 AM EST Office Visit [facility] Hematology/BMT and Cellular Therapy Program [address] [phone] Zonia Hoffman, HONING MACHINE SET UP OPERATOR 800 [facility] [address] [place] [phone] documented as of this encounter Visit Diagnoses Not on filedocumented in this encounter Additional Health Concerns Assessment Noted Time A fall risk assessment has been complete d for the patient 01/27/2025 3:25 PM EDT A Body Mass Index follow-up plan has been documented for the patient 05/28/2024 1:52 PM EST documented as of this encounter Care Teams Practical Nurse Relationship Specialty Start Date End Date Jevon Vazquez MD [address] [place] [address] [address]1 [address] [place] [id number] PCP - General 03/23/22 documented as of this encounter
--- OUTSIDE RECORDS SUMMARY | 2025-03-09 08:07 | XMS_ITS | Encounter Summary ---
Author Organization [facility] Address [address] [place] [address] Care Team Providers Care Resource Efficiency Manager Name Role Phone Jevon Vazquez MD Primary Care Provider [phone] Reason for Visit * Reason Comments Med Refill Encounter Details Date Type Department Care Team ([facility] Contact Info) Description 02/27/2025 Refill [facility] Hematology/BMT and Cellular Therapy Program [address] [phone] Zonia Hoffman, OFFICE TECHNOLOGY INSTRUCTOR 800 [facility] [address] [place] [phone] Social History Tobacco Use Types Packs/Day Years [...] - [facility] Contact Info) Description 04/02/2025 10:30 AM EST Clinical Support [facility] Hematology/BMT and Cellular Therapy Program [address] [phone] 04/02/2025 11:00 AM EST Office Visit [facility] Hematology/BMT and Cellular Therapy Program [address] [phone] Zonia Hoffman, OFFICE TECHNOLOGY INSTRUCTOR 800 [facility] [address] [place] [address] documented as of this encounter Visit Diagnoses Not on filedocumented in this encounter Additional Health Concerns Assessment Noted Time A fall risk assessment has been complete d for the patient 01/27/2025 3:25 PM EDT A Body Mass Index follow-up plan has been documented for the patient 05/28/2024 1:52 PM EST documented as of this encounter Care Teams Resource Efficiency Manager Relationship Specialty Start Date End Date Jevon Vazquez MD [address] [place] [address] [address]1 [place] [address] PCP - General 03/23/22 documented as of this encounter
--- OUTSIDE RECORDS SUMMARY | 2025-03-09 08:07 | XMS_ITS | Encounter Summary ---
Author Organization Healthcare Address [address] [place] [address] Care Team Providers Care Head Boys Golf Coach Name Role Phone Jevon Vazquez MD Primary Care Provider [phone] Encounter Details Date Type Department Care Team [...] Hematology/BMT and Cellular Therapy Program [address] [phone] 04/02/2025 11:00 AM EST Office Visit [facility] Hematology/BMT and Cellular Therapy Program [address] [phone] Zonia Hoffman, FRAME CATCHER 800 [facility] [address] [place] [phone] documented as of this encounter Visit Diagnoses Not on filedocumented in this encounter Additional Health Concerns Assessment Noted Time A fall risk assessment has been complete d for the patient 01/27/2025 3:25 PM EDT A Body Mass Index follow-up plan has been documented for the patient 05/28/2024 1:52 PM EST documented as of this encounter Care Teams Head Boys Golf Coach Relationship Specialty Start Date End Date Jevon Vazquez MD [address] [place] [address] #1 [address]1 [place] [address] PCP - General 03/23/22 documented as of this encounter
--- OUTSIDE RECORDS SUMMARY | 2025-03-09 08:07 | XMS_ITS ---
Author Organization Healthcare Address [address] [place] [address] Care Team Providers Care Transaction Coordinator Name Role Phone Jevon Vazquez MD Primary Care Provider [phone] Active Problems Problem Noted Date Diagnosed Date [...]
--- OUTSIDE RECORDS SUMMARY | 2025-03-09 08:07 | XMS_ITS | Encounter Summary ---
Author Organization Healthcare Address [address] [place] [address] Care Team Providers Care Tile Designer Name Role Phone Jevon Vazquez MD Primary Care Provider [phone] Encounter Details Date Type Department Care Team ([facility] Contact Info) Description 02/25/2025 Telephone [facility] Hematology/BMT and Cellular Therapy Program [address] [phone] Astrid South RN [facility] None Social History [...] Hematology/BMT and Cellular Therapy Program [address] [phone] 04/02/2025 11:00 AM EST Office Visit [facility] Hematology/BMT and Cellular Therapy Program [address] [phone] Zonia Hoffman, COTTON EXPERT 800 [facility] [address] [place] [phone] documented as of this encounter Visit Diagnoses Not on filedocumented in this encounter Additional Health Concerns Assessment Noted Time A fall risk assessment has been complete d for the patient 01/27/2025 3:25 PM EDT A Body Mass Index follow-up plan has been documented for the patient 05/28/2024 1:52 PM EST documented as of this encounter Care Teams Tile Designer Relationship Specialty Start Date End Date Jevon Vazquez MD [address] [place] [address] #1 [address]1 [place] [phone] PCP - General 03/23/22 documented as of this encounter
--- OUTSIDE RECORDS SUMMARY | 2025-03-09 08:07 | XMS_ITS | Encounter Summary ---
Author Organization [facility] Address [address] [place] [address] Care Team Providers Care Relocation Commissioner Name Role Phone Jevon Vazquez MD Primary Care Provider [phone] Reason for Visit * Reason Comments Med Refill Encounter Details Date Type Department Care Team ([facility] Contact Info) Description 01/30/2024 Refill [facility] Hematology/BMT and Cellular Therapy Program [address] [phone] [place] MD 800 [facility] [address] [place] [phone] Social History Tobacco Use Types Packs/Day Years [...] Team ([facility] Contact Info) Description 04/02/2025 10:30 AM EST Clinical Support [facility] Hematology/BMT and Cellular Therapy Program [address] [phone] 04/02/2025 11:00 AM EST Office Visit [facility] Hematology/BMT and Cellular Therapy Program [address] [phone] Zonia Hoffman, NURSING ASSOCIATE 800 [facility] [address] [place] [phone] documented as of this encounter Visit Diagnoses Not on filedocumented in this encounter Additional Health Concerns Assessment Noted Time A fall risk assessment has been complete d for the patient 01/11/2024 9:16 AM EDT A Body Mass Index follow-up plan has been documented for the patient 01/21/2024 6:16 AM EDT documented as of this encounter Care Teams Relocation Commissioner Relationship Specialty Start Date End Date Jevon Vazquez MD [address] [place] [address] #1 [address]1 [place] [address] PCP - General 03/23/22 documented as of this encounter
--- OUTSIDE RECORDS SUMMARY | 2025-03-09 08:07 | XMS_ITS | Encounter Summary ---
Author Organization [facility] Address [address] [place] [address] Care Team Providers Care Brick Chimney Supervisor Name Role Phone Jevon Vazquez MD Primary Care Provider [phone] Reason for Visit * Reason Comments Med Refill Encounter Details Date Type Department Care Team ([facility] Contact Info) Description 02/02/2025 Refill [facility] Hematology/BMT and Cellular Therapy Program [address] [phone] Zonia Hoffman, JET AIRCRAFT SERVICER 800 [facility] [address] [place] [phone] Social History Tobacco Use Types Packs/Day Years [...] Care Team ([facility] Contact Info) Description 04/02/2025 10:30 AM EST Clinical Support [facility] Hematology/BMT and Cellular Therapy Program [address] [phone] 04/02/2025 11:00 AM EST Office Visit [facility] Hematology/BMT and Cellular Therapy Program [address] [phone] Zonia Hoffman, JET AIRCRAFT SERVICER 800 [facility] [address] [place] [phone] documented as of this encounter Visit Diagnoses Not on filedocumented in this encounter Additional Health Concerns Assessment Noted Time A fall risk assessment has been complete d for the patient 01/27/2025 3:25 PM EDT A Body Mass Index follow-up plan has been documented for the patient 05/28/2024 1:52 PM EST documented as of this encounter Care Teams Brick Chimney Supervisor Relationship Specialty Start Date End Date Jevon Vazquez MD [address] [place] [address] [address]1 [address]1 [place] [address] PCP - General 03/23/22 documented as of this encounter
[2025-03-09 08:08] LABS: Hematocrit 28.0 % (37.0-47.0); Hemoglobin 9.5 g/dL (12.2-16.2); Immature Granulocytes % 0 %; Mean Corpuscular HGB Conc 33.9 g/dL (31.8-35.4); Mean Corpuscular Hemoglobin 29.2 pg (27.0-31.2); Mean Corpuscular Volume 86.2 fl (81-99); Nucleated Red Blood Cells % 0 %; Red Blood Count 3.25 M/mm3 (4.20-5.40); Red Cell Distribution Width-SD 43.0 fL
--- OUTSIDE RECORDS SUMMARY | 2025-03-09 08:08 | XMS_ITS | Clinical Summary ---
Author Organization [facility] Address [address] 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) 03/03/2025 1:00 PM EST Clinical Support [facility] Hematology/BMT and Cellular Therapy Program [address] [place] [address] [phone] Jyoti Kemp 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) 03/03/2025 Telephone [facility] Hematology/BMT and Cellular Therapy Program [address] [place] [phone] Alyson Vivas, RN 03/03/2025 Telephone [facility] Hematology/BMT and Cellular Therapy Program [address] [place] [phone] Alyson Vivas RN 03/03/2025 Travel 02/28/2025 Travel 02/27/2025 Refill [facility] Hematology/BMT and Cellular Therapy Program [address] [phone] Zonia Hoffman, DIESEL RETROFIT INSTALLER 02/26/2025 Travel 02/25/2025 Travel 02/25/2025 Telephone [facility] Hematology/BMT and Cellular Therapy Program [address] [place] [phone] Astrid South, AKBAR 02/18/2025 Refill [facility] Hematology/BMT and Cellular Therapy Program [address] [phone] Zonia Hoffman, DIESEL RETROFIT INSTALLER Immunosuppressed status (CMS/HCC); 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) 02/18/2025 Refill [facility] Hematology/BMT and Cellular Therapy Program [address] [place] [phone] New Mckinney MD 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) 02/16/2025 Orders Only [facility] Hematology/BMT and Cellular Therapy Program [address] [place] [phone] 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, RN 02/02/2025 Refill [facility] Hematology/BMT and Cellular Therapy Program [address] [place] [phone] Zonia Hoffman, DIESEL RETROFIT INSTALLER 01/28/2025 Telephone [facility] Hematology/BMT and Cellular Therapy Program [address] [place] [phone] New Mckinney MD 01/27/2025 3:30 PM EDT Office Visit [facility] Hematology/BMT and Cellular Therapy Program [address] [place] [phone] New Mckinney MD Encounter for antineoplastic immunotherapy (Primary Dx); 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); Immunosuppressed status (CMS/HCC) 01/27/2025 3:00 PM EDT Clinical Support [facility] Hematology/BMT and Cellular Therapy Program [address] [phone] Oscar Cortez, RN 01/27/2025 Telephone [facility] [address] [place] [address] Emil Hardy, PharmD 01/27/2025 Telephone [facility] Hematology/BMT and Cellular Therapy Program [address] [place] [phone] Alyson Vivas, AKBAR 01/27/2025 Travel 01/20/2025 Travel 01/16/2025 Telephone [facility] Hematology/BMT and Cellular Therapy Program [address] [place] [phone] Daxa Elliott RN 01/12/2025 10:00 AM EDT Procedure Visit [facility] Hematology/BMT and Cellular Therapy Program [address] [place] [phone] Rebecca Barrientos PA Myelodysplastic syndrome (CMS/HCC); 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) 01/12/2025 9:30 AM EDT Clinical Support [facility] Hematology/BMT and Cellular Therapy Program [address] [place] [phone] 01/12/2025 Travel 01/07/2025 Travel 01/07/2025 Telephone [facility] Hematology/BMT and Cellular Therapy Program [address] [place] [phone] Sabine Clemons MD 01/07/2025 Refill [facility] Hematology/BMT and Cellular Therapy Program [address] [place] [address] [phone] Zonia Hoffman, RODDY 01/05/2025 Travel 01/05/2025 Refill [facility] Hematology/BMT and Cellular Therapy Program [address] [place] [phone] Zonia Hoffman, DIESEL RETROFIT INSTALLER 12/29/2024 Orders Only [facility] Hematology/BMT and Cellular Therapy Program [address] [place] [address] New Mckinney MD Myelodysplastic syndrome (CMS/HCC) (Primary Dx) 12/29/2024 Telephone [facility] Hematology/BMT and Cellular Therapy Program 750 [facility], [address] [place] [phone] Bibiana Sepulveda, DIESEL RETROFIT INSTALLER 12/28/2024 Travel 12/26/2024 Travel 12/25/2024 Travel 12/24/2024 Travel 12/23/2024 Travel 12/11/2024 Telephone [facility] Hematology/BMT and Cellular Therapy Program 750 [facility], [address] [place] [address] [place] [phone] New Mckinney MD 12/10/2024 Travel 12/09/2024 Refill [facility] Hematology/BMT and Cellular Therapy Program 750 [facility], [address] [place] [address] [place] [address] Zonia Hoffman, DIESEL RETROFIT INSTALLER from Last 3 Months Immunizations Immunization Administration [...] Cellular Therapy Program 750 [facility], [address] [place] [phone] 04/02/2025 11:00 AM EST Office Visit [facility] Hematology/BMT and Cellular Therapy Program 750 [facility], [address] [place] [phone] Zonia Hoffman, DIESEL RETROFIT INSTALLER 800 [facility] [address] [place] [phone] Health Maintenance Due Date Last Done Comments [...] 05/16/2023 03/21/2023 UKY-Bone Density Scan 07/25/2024 07/25/2022 [id number] Vaccine ( season) 2024 02/18/2021, 07/10/2020, 06/12/2020 [...] this topic Medical Devices Implanted Type Area Rental Coordinator Device Identifier Shelf Expiration Date Model / Serial / Lot Port Clearvue Power 8fr - [id number] Implanted:Qty: 1 on 01/21/2024 by Ness Sargent MD at [facility] [employer]-[id number] / / Procedures Procedure Name Priority Date/Time [...] LAB HEMATOLOGY METHOD 03/03/2025 1:37 PM EST [facility] RBC Count 3.19(L) 3.90 - 5.20 10*6/uL LAB HEMATOLOGY METHOD 03/03/2025 1:37 PM EST [facility] HGB 9.2(L) 11.2 - 15.7 g/dL LAB HEMATOLOGY METHOD 03/03/2025 1:37 PM EST [facility] HCT 27.1(L) 34.0 - 45.0 % LAB HEMATOLOGY METHOD 03/03/2025 1:37 PM EST [facility] Platelet Count 10(LL) 155 - 369 10*3/uL LAB HEMATOLOGY METHOD 03/03/2025 1:37 PM EST [facility] MCV 85 79 - 98 fL LAB HEMATOLOGY METHOD 03/03/2025 1:37 PM EST [facility] MCH 28.8 26.0 - 32.0 pg LAB HEMATOLOGY METHOD 03/03/2025 1:37 PM EST [facility] MCHC 33.9 30.7 - 35.5 g/dL LAB HEMATOLOGY METHOD 03/03/2025 1:37 PM EST [facility] RDW 15.0(H) 11.5 - 14.5 % LAB HEMATOLOGY METHOD 03/03/2025 1:37 PM EST [facility] MPV LAB HEMATOLOGY METHOD 03/03/2025 1:37 PM [facility] Comment:Not Measured nRBC 0.0 <=0.0 per 100 WBCs LAB HEMATOLOGY METHOD 03/03/2025 1:37 PM EST [facility] Differential Type Automated LAB HEMATOLOGY METHOD 03/03/2025 1:37 PM [facility] Neutrophils % 2 % LAB HEMATOLOGY METHOD 03/03/2025 1:37 PM EST [facility] Lymphocytes % 91 % LAB HEMATOLOGY METHOD 03/03/2025 1:37 PM EST [facility] Monocytes % 7 % LAB HEMATOLOGY METHOD 03/03/2025 1:37 PM EST [facility] Eosinophils % 0 % LAB HEMATOLOGY METHOD 03/03/2025 1:37 PM EST [facility] Basophils % 0 % LAB HEMATOLOGY METHOD 03/03/2025 1:37 PM EST [facility] Immature Granulocytes % 0 % LAB HEMATOLOGY METHOD 03/03/2025 1:37 PM EST [facility] Neutrophils Absolute 0.01(LL) 1.60 - 6.10 10*3/uL LAB HEMATOLOGY METHOD 03/03/2025 1:37 PM EST [facility] Lymphocytes Absolute 0.57(L) 1.20 - 3.90 10*3/uL LAB HEMATOLOGY METHOD 03/03/2025 1:37 PM EST [facility] Monocytes Absolute 0.04(L) 0.30 - 0.90 10*3/uL LAB HEMATOLOGY METHOD 03/03/2025 1:37 PM EST [facility] Eosinophils Absolute 0.00 0.00 - 0.50 10*3/uL LAB HEMATOLOGY METHOD 03/03/2025 1:37 PM EST [facility] Basophils Absolute 0.00 0.00 - 0.10 10*3/uL LAB HEMATOLOGY METHOD 03/03/2025 1:37 PM EST [facility] Immature Granulocytes Absolute 0.00 0.00 - 0.06 10*3/uL LAB HEMATOLOGY METHOD 03/03/2025 1:37 PM EST [facility] Blood Venous blood specimen / Unknown (Port) Long-term Catheter / Unknown 03/03/2025 12:51 PM EST 03/03/2025 1:11 PM EST Narrative [facility] - 03/03/2025 1:37 PM EST Therapeutic decision making should be based on absolute values, rather than percentages. us New Mckinney MD LAB BLOOD ORDERABLES Final [facility]ult [facility] [address] [place] [address] * (ABNORMAL) Comprehensive Metabolic Panel, Plasma (03/03/2025 12:51 PM EST) Only the most recent of3 resultswithin the time period is included. Glucose, Plasma 179(H) 74 - 99 mg/dL 03/03/2025 1:30 PM EST [facility] BUN, Plasma 20 8 - 23 mg/dL 03/03/2025 1:30 PM EST [facility] Creatinine, Plasma 0.87 0.60 - 1.10 mg/dL 03/03/2025 1:30 PM EST [facility] BUN/Creatinine Ratio 23 03/03/2025 1:30 PM EST [facility] Sodium, Plasma 136 136 - 145 mmol/L 03/03/2025 1:30 PM EST [facility] Potassium, Plasma 4.2 3.6 - 4.9 mmol/L 03/03/2025 1:30 PM EST [facility] Chloride, Plasma 105 97 - 107 mmol/L 03/03/2025 1:30 PM EST [facility] CO2, Plasma 18(L) 22 - 29 mmol/L 03/03/2025 1:30 PM EST [facility] Anion Gap 13 6 - 16 mmol/L 03/03/2025 1:30 PM EST [facility] Total Calcium, Plasma 9.0 8.9 - 10.2 mg/dL 03/03/2025 1:30 PM EST [facility] Total Protein 6.1(L) 6.3 - 7.9 g/dL 03/03/2025 1:30 PM EST [facility] Albumin, Plasma 3.1(L) 3.5 - 5.2 g/dL 03/03/2025 1:30 PM EST [facility] AST, Plasma 12 10 - 35 U/L 03/03/2025 1:30 PM EST [facility] ALT, Plasma 5(L) 10 - 35 U/L 03/03/2025 1:30 PM EST [facility] Alkaline Phosphatase, Plasma 41(L) 46 - 142 U/L 03/03/2025 1:30 PM EST [facility] Total Bilirubin, Plasma 0.6 0.2 - 1.1 mg/dL 03/03/2025 1:30 PM EST [facility] eGFRcr 70.0 mL/min/1.7 3m*2 03/03/2025 1:30 PM EST [facility] Comment:Reported eGFRcr in m L/min/1.73m2 is based the CKD-EPI 2020 equation that does not use a race coefficient. Blood Venous blood specimen / Unknown (Port) Long-term Catheter / Unknown 03/03/2025 12:51 PM EST 03/03/2025 1:03 PM EST us New Mckinney MD LAB BLOOD ORDERABLES Final Re sult [facility] [address] [place] [address] * BIOPSY BONE MARROW (01/12/2025 10:00 AM [...] with this patient's previous abnormal results (see [facility]-[id number]). Clinical correlation is recommended. Note: Per [employer] [place] [employer] [place] [employer] (CAP) requirement an additional karyotype was [...] inal Result [facility] [address] [place] [address] * Leukemia/Lymphoma - Immunophenotyping by Flow Cytometry [...] light chains 01/12/2025 4:[address] [facility] Disclaimer This test was developed and its performance characteristics determined by the Immuno-Molecular Pathology Laboratory at the [facility]. It has not been cleared [...] Final Result [facility] [address] [place] [address] * Bone marrow exam (01/12/2025 9:55 AM EDT) Case Report Bone Marrow Case: [id number] Authorizing Provider: New Mckinney MD Collected: 01/12/2025 0955 Ordering Location: [facility] Hematology/BMT and Received: 01/12/2025 1143 Cellular [...] with this patient's previous abnormal results (see [facility]-[id number]). 5:16 PM EDT [facility] [...] trabeculae are normal. 5:[address] [facility] Special and Immunohistochemical Stains Immunohistochemica l [...] the [facility], [address] [place] [address]. All tests reported here, except those addressing [...] on decalcified specimens. 5:[address] [facility] Flow Cytometry Interpretation Flow cytometric analysis demonstrates approximately 27% population of myeloid blasts in this patient with history of myelodysplastic syndrome; expressing CD34, CD117, variable CD33, partial CD56, variable HLA-DR, partial dim CD7, CD38 and dim CD45 ([id number]). 5:16 PM EDT [facility] [...] ed Result - Final Performing Organization Address City/State/[facility] Co de Phone Number [facility] [address] [place] [address] * Hepatitis C Antibody w/Reflex to HCV Quant PCR (01/07/2024 8:42 AM EDT) Hepatitis C Antibody Negative Negative 01/07/2024 10:13 AM EDT [facility] Blood Venous blood specimen / Unknown Venipuncture / Unknown 01/07/2024 8:42 AM EDT 01/07/2024 9:25 AM EDT New Mckinney MD LAB BLOOD ORDERABLES Final Re sult [facility] [address] [place] [address] from Last 3 Months or Most Recently Relevant to Health [place] [address] [employer] Care Teams Mortgage Loan Reviewer Relationship Specialty Start Date End Date Jevon Vazquez MD [address] [place] [address] #1 #1 [place] [phone] PCP - General 03/23/22
--- OUTSIDE RECORDS SUMMARY | 2025-03-09 08:08 | XMS_ITS | Encounter Summary ---
Author Organization [facility] Address [address] [place] [address] Care Team Providers Care Farm Equipment Engine Mechanic Name Role Phone Jevon Vazquez MD Primary Care Provider [phone] Encounter Details Date Type Department Care Team (Late st Contact Info) Description 01/27/2025 Telephone [facility] [address] [place] [phone] Emil Hardy, PharmD None None Social History [...] Valdes, PharmD - 01/28/2025 2:40 PM EDT [facility] Specialty Medication Initial Care Plan Ashly [...] Injectable, preservative free 03/21/2024 Moderna COVID-19 Vaccine (Processing Associate) 12+ years 06/12/2020, 07/10/2020, 02/18/2021 Selected lab [...] Patient reports education was provided by clinic [facility]. She denied further education at this time [...] Hematology/BMT and Cellular Therapy Program [address] [phone] 04/02/2025 11:00 AM EST Office Visit [facility] Hematology/BMT and Cellular Therapy Program [address] [phone] Zonia Hoffman, OIL BURNER TECHNICIAN 800 [facility] [address] [place] [phone] documented as of this encounter Visit Diagnoses Not on filedocumented in this encounter Additional Health Concerns Assessment Noted Time A fall risk assessment has been complete d for the patient 01/27/2025 3:25 PM EDT A Body Mass Index follow-up plan has been documented for the patient 05/28/2024 1:52 PM EST documented as of this encounter Care Teams Farm Equipment Engine Mechanic Relationship Specialty Start Date End Date Jevon Vazquez MD [address] [place] [address] #1 #1 [place] [phone] PCP - General 03/23/22 documented as of this encounter
--- OUTSIDE RECORDS SUMMARY | 2025-03-09 08:08 | XMS_ITS | Encounter Summary ---
Author Organization Healthcare Address [address] [place] [address] Care Team Providers Care Pipe Layer Name Role Phone Jevon Vazquez MD Primary Care Provider [phone] Encounter Details Date Type Department Care Team [...] Hematology/BMT and Cellular Therapy Program [address] [phone] 04/02/2025 11:00 AM EST Office Visit [facility] Hematology/BMT and Cellular Therapy Program [address] [phone] Zonia Hoffman, RODDY 800 [facility] [address] [place] [phone] documented as of this encounter Visit Diagnoses Not on filedocumented in this encounter Additional Health Concerns Assessment Noted Time A fall risk assessment has been complete d for the patient 09/30/2024 9:33 AM EDT A Body Mass Index follow-up plan has been documented for the patient 05/28/2024 1:52 PM EST documented as of this encounter Care Teams Pipe Layer Relationship Specialty Start Date End Date Jevon Vazquez MD [address] [place] [address] #1 #1 [place] [phone] PCP - General 03/23/22 documented as of this encounter
--- OUTSIDE RECORDS SUMMARY | 2025-03-09 08:08 | XMS_ITS | Encounter Summary ---
Author Organization Healthcare Address [address] [place] [address] Care Team Providers Care Compressor Operator Adjuster Name Role Phone Jevon Vazquez MD Primary Care Provider [phone] Encounter Details Date Type Department Care Team ([facility] Contact Info) Description 02/16/2025 Orders Only [facility] Hematology/BMT and Cellular Therapy Program [address] [phone] 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, RN [facility] None Social History Tobacco [...] Hematology/BMT and Cellular Therapy Program [address] [phone] 04/02/2025 11:00 AM EST Office Visit [facility] Hematology/BMT and Cellular Therapy Program [address] [phone] Zonia Hoffman, COMMERCIAL LOAN PROCESSOR 800 [facility] [address] [place] [phone] documented as of this encounter Visit Diagnoses [...] Date End Date Jevon Vazquez MD [address] [place] [address] #1 #1 [place] [address] PCP - General 03/23/22 documented as of this encounter
--- OUTSIDE RECORDS SUMMARY | 2025-03-09 08:08 | XMS_ITS | Encounter Summary ---
Author Organization Healthcare Address [address] [place] [address] Care Team Providers Care Jump Roll Operator Name Role Phone Jevon Vazquez MD Primary Care Provider [phone] Encounter Details Date Type Department Care Team ([facility] Contact Info) Description 01/28/2025 Telephone [facility] Hematology/BMT and Cellular Therapy Program [address] [phone] New Mckinney MD 800 [facility] [address] [place] [phone] Social History Tobacco Use Types Packs/Day Years [...] patient to inform patient of appointment at [facility] on 02/04. Patient was informed that a [employer] message will be sent with information. documented in this encounter Plan of Treatment Upcoming Encounters Date Type Department Care Team ([facility] Contact Info) Description 04/02/2025 10:30 AM EST Clinical Support [facility] Hematology/BMT and Cellular Therapy Program [address] [place] [address] 04/02/2025 11:00 AM EST Office Visit [facility] Hematology/BMT and Cellular Therapy Program [address] [place] [address] Zonia Hoffman, PAPER BOX MAKER 800 [facility] [address] [place] [phone] documented as of this encounter Visit Diagnoses Not on filedocumented in this encounter Additional Health Concerns Assessment Noted Time A fall risk assessment has been complete d for the patient 01/27/2025 3:25 PM EDT A Body Mass Index follow-up plan has been documented for the patient 05/28/2024 1:52 PM EST documented as of this encounter Care Teams Jump Roll Operator Relationship Specialty Start Date End Date Jevon Vazquez MD [address] [place] [address] #1 #1 [place] [address] PCP - General 03/23/22 documented as of this encounter
--- OUTSIDE RECORDS SUMMARY | 2025-03-09 08:08 | XMS_ITS | Encounter Summary ---
Author Organization [facility] Address [address] [place] [address] Care Team Providers Care Gis Technician Name Role Phone Jevon Vazquez MD Primary Care Provider [phone] Reason for Visit * Reason Comments Med Refill Encounter Details Date Type Department Care Team ([facility] Contact Info) Description 02/18/2025 Refill [facility] Hematology/BMT and Cellular Therapy Program [address] [phone] Zonia Hoffman, PSYCHIATRIC TECH 800 [facility] [address] [place] [phone] Immunosuppressed status (CMS/HCC); Acute myeloid leukemia not [...] ([facility] Contact Info) Description 04/02/2025 10:30 AM EST Clinical Support [facility] Hematology/BMT and Cellular Therapy Program [address] [phone] 04/02/2025 11:00 AM EST Office Visit [facility] Hematology/BMT and Cellular Therapy Program [address] [place] [address] Zonia Hoffman, PSYCHIATRIC TECH 800 [facility] [address] [place] [address] documented as of this encounter Visit Diagnoses [...] documented as of this encounter Care Teams Gis Technician Relationship Specialty Start Date End Date Jevon Vazquez MD [address] [place] [address] #1 #1 [place] [address] PCP - General 03/23/22 documented as of this encounter
--- OUTSIDE RECORDS SUMMARY | 2025-03-09 08:08 | XMS_ITS | Encounter Summary ---
Author Organization Healthcare Address [address] [place] [address] Care Team Providers Care Circular Saw Operator Name Role Phone Jevon Vazquez MD Primary Care Provider [phone] Encounter Details Date Type Department Care Team [...] and Cellular Therapy Program [address] [phone] 04/02/2025 11:00 AM EST Office Visit [facility] Hematology/BMT and Cellular Therapy Program [address] [phone] Zonia Hoffman, PRODUCTION SUPPORT SPECIALIST 800 [facility] [address] [place] [phone] documented as of this encounter Visit Diagnoses Not on filedocumented in this encounter Additional Health Concerns Assessment Noted Time A fall risk assessment has been complete d for the patient 01/27/2025 3:25 PM EDT A Body Mass Index follow-up plan has been documented for the patient 05/28/2024 1:52 PM EST documented as of this encounter Care Teams Circular Saw Operator Relationship Specialty Start Date End Date Jevon Vazquez MD [address] [place] [address] #1 #1 [place] [address] PCP - General 03/23/22 documented as of this encounter
--- OUTSIDE RECORDS SUMMARY | 2025-03-09 08:08 | XMS_ITS | Clinical Summary ---
Author Organization [facility] Address [address] [place] [address] Phone Care Team Providers Care Director Epidemiology Name Role Phone Jevon Vazquez MD Primary Care Provider [phone] Allergies Active Allergy Reactions Criticality Noted Date [...] L4-5 LAMINECTOMY; Surgeon: Ivan Bartholomew MD; Location: [facility] MAIN OR; Service: Spine Medical History Medical [...] 5.6 % 11/14/2022 2:57 PM EDT PREFERRED [employer], Loc[facility] Special Diet Est. Avg Glucose 148 mg/dL 11/14/2022 2:57 PM EDT [employer], Loc[facility] Special Diet Blood VENOUS BLOOD / Unknown Venipuncture / Unknown 11/11/2022 3:46 PM EDT 11/11/2022 3:55 PM EDT Narrative PREFERRED [facility] - 11/14/2022 2:57 PM [...] Maloney DO CHEMISTRY ORDERABLES Final R esult [employer] [facility] , [address] [place] [id number] * (ABNORMAL) BASIC METABOLIC PANEL (11/11/2022 3:46 PM EDT) Sodium 136 136 - 145 mmol/L 11/11/2022 4:11 PM EDT [facility] Potassium 3.8 3.5 - 5.0 mmol/L 11/11/2022 4:11 PM EDT [facility] Chloride 102 98 - 107 mmol/L 11/11/2022 4:11 PM EDT [facility] Total CO2 24 22 - 29 mmol/L 11/11/2022 4:11 PM EDT [facility] Anion Gap 10 7 - 16 mmol/L 11/11/2022 4:11 PM EDT [facility] Calcium 10.1 8.8 - 10.4 mg/dL 11/11/2022 4:11 PM EDT [facility] Glucose Lvl 147(H) 82 - 100 mg/dL 11/11/2022 4:11 PM EDT [facility] BUN 15 8 - 23 mg/dL 11/11/2022 4:11 PM EDT [facility] Creatinine 0.82 0.51 - 1.30 mg/dL 11/11/2022 4:11 PM EDT [facility] eGFR (CKD-EPIcr 2021) 76 >=60 mL/min/1.7 3 m2 11/11/2022 4:11 PM EDT [facility] Comment:Estimated GFR was ca lculated using the CKD-EPIcr (2020) equation refit without race. The equation is recommended by the National Kidney Foundation - [place] Society of Nephrology Task Force. Blood VENOUS BLOOD / Unknown Venipuncture / Unknown 11/11/2022 3:46 PM EDT 11/11/2022 3:54 PM EDT us Leona Hanna DO CHEMISTRY ORDERABLES Final Res ult [facility] [address] [place] [address] * DX BONE DENSITY AXIAL SKELETON (07/25/2022 9:14 AM EDT) Anatomical Region Laterality Modality Dexa Scan 07/25/2022 Narrative 07/25/2022 3:45 PM EDT Indication: The patient is a female age 65 or older who requires a bone density assessment. Study was performed on [employer] 5. Bone Density: Region BMD T-score [...] Payer (Ef fective 2016-Present) Name:Ashly Hernández Member ID:[id number] Relation to Subscriber:Self Name:Ashly Hernández Subscriber ID:[id number] Payer ID:Not on file Group ID:Not on file Type:Not on file Address: [address] MEDICARE SUPPLEMENT MEDICARE [place] PART A & B MEDICARE [place] PART A AND B Member Subscriber Plan / Payer (Ef fective 2016-Present) Name:Ashly Hernández Member ID:[id number] Relation to Subscriber:Self Name:Ashly Hernández Subscriber ID:[id number] Payer ID:Not on file Group ID:Not on file Type:Not on file Address: [address] MEDICARE SUPPLEMENT [employer] MEDICARE [place] PART A AND B [address] MEDICARE SUPPLEMENT Advance Directives For more information, please contact: [phone] * Full Code (Latest Code Status on File) Date Activated Date Inactivated Comments 11/14/2022 6:53 PM 11/16/2022 7:37 PM * Full Code Date Activated Date Inactivated Comments 11/12/2022 5:17 AM 11/14/2022 6:47 PM Care Teams Director Epidemiology Relationship Specialty Start Date End Date Jevon Vazquez MD [address] [place] [address] PCP - General Family Medicine 11/10/22
--- OUTSIDE RECORDS SUMMARY | 2025-03-09 08:08 | XMS_ITS | Encounter Summary ---
Author Organization Healthcare Address [address] [place] [address] Care Team Providers Care Glass Carrier Name Role Phone Jevon Vazquez MD Primary Care Provider [phone] Encounter Details Date Type Department Care Team (Late Contact Info) Description 01/16/2025 Telephone [facility] Hematology/BMT and Cellular Therapy Program [address] [place] [address] [place] [address] Daxa Elliott RN [facility]IC None [...] [facility] Hematology/BMT and Cellular Therapy Program [facility] [place] [address] 04/02/2025 11:00 AM EST Office Visit [facility] Hematology/BMT and Cellular Therapy Program [facility] [place] [address] Zonia Hoffman, BIOFUELS TECHNOLOGY DEVELOPMENT MANAGER 800 [facility] [address] [place] [phone] documented as of this encounter Visit Diagnoses Not on filedocumented in this encounter Additional Health Concerns Assessment Noted Time A fall risk assessment has been complete d for the patient 09/30/2024 9:33 AM EDT A Body Mass Index follow-up plan has been documented for the patient 05/28/2024 1:52 PM EST documented as of this encounter Care Teams Glass Carrier Relationship Specialty Start Date End Date Jevon Vazquez MD [address] [place] [address] [address]1 [address]1 [place] [address] PCP - General 03/23/22 documented as of this encounter
--- OUTSIDE RECORDS SUMMARY | 2025-03-09 08:08 | XMS_ITS | Clinical Summary ---
Author Organization [facility] Address [address] [place] [address] Care Team Providers Care Director Auto Name Role Phone David Vazquez Primary Care Provider [phone] Allergies No known active allergies Medications atorvastatin [...] Discontinued 01/24/2023 Medical Devices Implanted Type Area Maxillofacial Prosthodontist Device Identifier Shelf Expiration Date Model / Serial / Lot Mis Ply Scr 6.5x50mm - [id number] Implanted:Qty : 1 on 01/30/2023 by Ivan Bartholomew MD at [facility] Screw N/A: Spine Lumbar [employer] [id number] / / Mis Ply Scr 6.5x45mm - [id number] Implanted:Qty : 3 on 01/30/2023 by Ivan Bartholomew MD at [facility] [place] Screw N/A: Spine Lumbar [employer] [id number] / / Reline Mas Reduction Screw 7.5x45 - [id number] Implanted:Qty : 2 on 01/30/2023 by Ivan Bartholomew MD at [facility] [place] Screw N/A: Spine Lumbar [employer] [id number] / / Grft Dbm Vesuvius Putty 5cc - [id number] Implanted:Qty : 1 on 01/30/2023 by Ivan Bartholomew MD at [facility] [place] [employer] [id number] 04/20/2025 [id number] P / [id number] / Putty I-Factor 5.0cc - [id number] Implanted:Qty : 1 on 01/30/2023 by Ivan Bartholomew MD at [facility] [place] N/A: Spine Lumbar [employer] 03/15/2025 [id number] / / [id number] Modulus Xlw [id number] 10 Degree - [id number] Implanted:Qty : 1 on 01/30/2023 by Ivan Bartholomew MD at [facility] N/A: Spine Lumbar [employer] [id number] / / [id number] Modulus Xlw [id number] - [id number] Implanted:Qty : 1 on 01/30/2023 by Ivan Bartholomew MD at [facility] [place] N/A: Spine Lumbar [employer] 09/28/2027 [id number] / / [id number] Reln Lock Scr 5.5mm Opn Tulip - [id number] Implanted:Qty : 6 on 01/30/2023 by Ivan Bartholomew MD at [facility] [place] N/A: Spine Lumbar [employer] [id number] / / Reln Mas Ti Petar 5.5x70mm - [id number] Implanted:Qty : 2 on 01/30/2023 by Ivan Bartholomew MD at [facility] N/A: Spine Lumbar [employer] [id number] / / Procedures Procedure Name Priority Date/Time [...] 125(H) 71 - 99 mg/dL [facility] Comment:Reference range (71- 99 mg/dL) [...] 10.3 8.5 - 10.5 mg/dL [facility] BUN/Creatinine Ratio 14 [facility] Serum 01/24/2023 2:32 PM EDT 01/24/2023 5:54 PM EDT Lexi SUAREZ CHEMISTRY ORDERABLES Final Resu lt [facility] [address] from Last 3 Months or Most Recently Relevant to Health Maintenance Insurance MEDICARE Member Subscriber Plan / Payer (Ef fective 2016-Present) Name:Ashly Briceño Member ID:[id number] Relation to Subscriber:Self Name:Ashly Briceño Subscriber ID:[id number] Payer ID:[id number] Group ID:Not on file Type:Medicare Address: [facility] [place] PART A [facility] [address] [place] [address] [facility] Advance Directives For more information, please contact: [phone] * Full Code (Latest Code Status on File) Date Activated Date Inactivated Comments 01/30/2023 9:13 AM No automated chest compression devices for VAD Patients Care Teams Director Auto Relationship Specialty Start Date End Date David Vazquez [address] [place] [address] PCP - General 01/24/23
--- OUTSIDE RECORDS SUMMARY | 2025-03-09 08:08 | XMS_ITS | Encounter Summary ---
Author Organization Healthcare Address [address] [place] [address] Care Team Providers Care Metal Drilling Machine Operator Name Role Phone Jevon Vazquez MD Primary Care Provider [phone] Encounter Details Date Type Department Care Team [...] Hematology/BMT and Cellular Therapy Program [address] [address] 04/02/2025 11:00 AM EST Office Visit [facility] Hematology/BMT and Cellular Therapy Program [address] [address] Zonia Hoffman, CURVE SAW OPERATOR 800 [facility] [address] [place] [phone] documented as of this encounter Visit Diagnoses Not on filedocumented in this encounter Additional Health Concerns Assessment Noted Time A fall risk assessment has been complete d for the patient 09/30/2024 9:33 AM EDT A Body Mass Index follow-up plan has been documented for the patient 05/28/2024 1:52 PM EST documented as of this encounter Care Teams Metal Drilling Machine Operator Relationship Specialty Start Date End Date Jevon Vazquez MD [address] [place] [address] #1 [address]1 [place] [address] PCP - General 03/23/22 documented as of this encounter
--- OUTSIDE RECORDS SUMMARY | 2025-03-09 08:08 | XMS_ITS | Encounter Summary ---
Author Organization [facility] Address [address] [place] [address] Care Team Providers Care Embedded Software Design Engineer Name Role Phone Jevon Vazquez MD Primary Care Provider [phone] Encounter Details Date Type Department Care Team ([facility] Contact Info) Description 01/27/2025 Telephone [facility] Hematology/BMT and Cellular Therapy Program [address] [place] [address] Alyson Vivas RN None None Social History [...] Upcoming Encounters Date Type Department Care Team ([facility] Contact Info) Description 04/02/2025 10:30 AM EST Clinical Support [facility] Hematology/BMT and Cellular Therapy Program 750 [facility], [address] [place] [address] Neo [place] [address] 04/02/2025 11:00 AM EST Office Visit [facility] Hematology/BMT and Cellular Therapy Program [address] [place] [address] Zonia Hoffman, SCOOP FILLER 800 [facility] [address] [place] [address] documented as of this encounter Visit Diagnoses Not on filedocumented in this encounter Additional Health Concerns Assessment Noted Time A fall risk assessment has been complete d for the patient 01/27/2025 3:25 PM EDT A Body Mass Index follow-up plan has been documented for the patient 05/28/2024 1:52 PM EST documented as of this encounter Care Teams Embedded Software Design Engineer Relationship Specialty Start Date End Date Jevon Vazquez MD [address] [place] [address] #1 [address]1 [place] [address] PCP - General 03/23/22 documented as of this encounter
--- OUTSIDE RECORDS SUMMARY | 2025-03-09 08:08 | XMS_ITS | Encounter Summary ---
Author Organization [facility] Address [address] 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) New Mckinney MD 800 [facility] [address] [address] Phone: tel: fax: Referral ID Status Reason Start Date Expiration Date Visits Re quested Visits Authorized [id number] Closed 1 1 Reason for Visit * Reason Comments Med Refill Encounter Details Date Type Department Care Team ([facility] st Contact Info) Description 02/18/2025 Refill [facility] Hematology/BMT and Cellular Therapy Program [address] [place] [address] New Mckinney MD 800 [facility] [address] [address] Acute myeloid leukemia not having [...] Upcoming Encounters Date Type Department Care Team ([facility] st Contact Info) Description 04/02/2025 10:30 AM EST Clinical Support [facility] Hematology/BMT and Cellular Therapy Program 750 [facility], [address] [place] [phone] 04/02/2025 11:00 AM EST Office Visit [facility] Hematology/BMT and Cellular Therapy Program 750 [facility], [address] [place] [phone] Zonia Hoffman, IDEA MAN 800 [facility] [address] [place] [phone] documented as of this encounter Visit Diagnoses [...] documented as of this encounter Care Teams Adjuster Piano Action Relationship Specialty Start Date End Date Jevon Vazquez MD [address] [place] [address] #1 [address]1 [place] [address] PCP - General 03/23/22 documented as of this encounter
--- OUTSIDE RECORDS SUMMARY | 2025-03-09 08:09 | XMS_ITS | Encounter Summary ---
Author Organization [facility] Address [address] [place] [address] Care Team Providers Care Truss Driver Helper Name Role Phone Jevon Vazquez MD Primary Care Provider [phone] Encounter Details Date Type Department Care Team ([facility] Contact Info) Description 03/06/2025 Telephone [facility] Hematology/BMT and Cellular Therapy Program [address] [address] New Mckinney MD 800 [facility] [address] [place] [phone] Social History Tobacco Use Types Packs/Day Years [...] Cellular Therapy Program [address] [phone] 04/02/2025 11:00 AM EST Office Visit [facility] Hematology/BMT and Cellular Therapy Program [address] [phone] Zonia Hoffman, HUNTING SALES ASSOCIATE 800 [facility] [address] [place] [address] documented as of this encounter Visit Diagnoses Not on filedocumented in this encounter Additional Health Concerns Assessment Noted Time A fall risk assessment has been complete d for the patient 03/03/2025 1:19 PM EST A Body Mass Index follow-up plan has been documented for the patient 05/28/2024 1:52 PM EST documented as of this encounter Care Teams Truss Driver Helper Relationship Specialty Start Date End Date Jevon Vazquez MD [address] [place] [address] #1 #1 [place] [address] PCP - General 03/23/22 documented as of this encounter
--- OUTSIDE RECORDS SUMMARY | 2025-03-09 08:09 | XMS_ITS | Encounter Summary ---
Author Organization Healthcare Address [address] [place] [address] Care Team Providers Care Airconditioning Plant Operator Name Role Phone Jevon Vazquez MD Primary Care Provider [phone] Encounter Details Date Type Department Care Team [...] Therapy Program 750 [facility], [address] [place] [address] [place] [address] 04/02/2025 11:00 AM EST Office Visit [facility] Hematology/BMT and Cellular Therapy Program [address] [place] [address] Zonia Hoffman, HOST/HOSTESS 800 [facility] [address] [place] [address] documented as of this encounter Visit Diagnoses Not on filedocumented in this encounter Additional Health Concerns Assessment Noted Time A fall risk assessment has been complete d for the patient 03/03/2025 1:19 PM EST A Body Mass Index follow-up plan has been documented for the patient 05/28/2024 1:52 PM EST documented as of this encounter Care Teams Airconditioning Plant Operator Relationship Specialty Start Date End Date Jevon Vazquez MD [address] [place] [address] #1 [address]1 [place] [address] PCP - General 03/23/22 documented as of this encounter
--- OUTSIDE RECORDS SUMMARY | 2025-03-09 08:09 | XMS_ITS | Encounter Summary ---
Author Organization Healthcare Address [address] [place] [address] Care Team Providers Care Automotive Service Assistant Name Role Phone Jevon Vazquez MD Primary Care Provider [phone] Encounter Details Date Type Department Care Team (Late st Contact Info) Description 03/03/2025 Telephone [facility] Hematology/BMT and Cellular Therapy Program [address] [place] [address] Alyson Vivas RN None None Social History [...] Mckinney Notified Primary Onc RN: 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, back up scan coordinator Value Action Taken WBC 0.62 PLT 10 RN notifed documented in this encounter Plan of Treatment Upcoming Encounters Date Type Department Care Team (Late st Contact Info) Description 04/02/2025 10:30 AM EST Clinical Support [facility] Hematology/BMT and Cellular Therapy Program [address] [address] 04/02/2025 11:00 AM EST Office Visit [facility]AV Hematology/BMT and Cellular Therapy Program [address] [address] Zonia Hoffman, CREWMAN MAIN BATTLE TANK 800 [facility] [address] [place] [phone] documented as of this encounter Visit Diagnoses Not on filedocumented in this encounter Additional Health Concerns Assessment Noted Time A fall risk assessment has been complete d for the patient 03/03/2025 1:19 PM EST A Body Mass Index follow-up plan has been documented for the patient 05/28/2024 1:52 PM EST documented as of this encounter Care Teams Automotive Service Assistant Relationship Specialty Start Date End Date Jevon Vazquez MD [address] [place] [address] #1 [address]1 [place] [address] PCP - General 03/23/22 documented as of this encounter
--- OUTSIDE RECORDS SUMMARY | 2025-03-09 08:09 | XMS_ITS | Encounter Summary ---
Author Organization Healthcare Address [address] [place] [address] Care Team Providers Care Production Potter Name Role Phone Jevon Vazquez MD Primary Care Provider [phone] Encounter Details Date Type Department Care Team (Late st Contact Info) Description 03/03/2025 Telephone [facility] Hematology/BMT and Cellular Therapy Program [address] [place] [address] Alyson Vivas RN None None Social History [...] Mckinney Notified Primary Onc RN: 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, head filter tank tender helper Value Action Taken WBC 0.62 documented in this encounter Plan of Treatment Upcoming Encounters Date Type Department Care Team ([facility] st Contact Info) Description 04/02/2025 10:30 AM EST Clinical Support [facility] Hematology/BMT and Cellular Therapy Program [address] [address] 04/02/2025 11:00 AM EST Office Visit PAV Hematology/BMT and Cellular Therapy Program [address] [address] Zonia oHffman, SALES REVIEW CLERK 800 [facility] [address] [place] [phone] documented as of this encounter Visit Diagnoses Not on filedocumented in this encounter Additional Health Concerns Assessment Noted Time A fall risk assessment has been complete d for the patient 03/03/2025 1:19 PM EST A Body Mass Index follow-up plan has been documented for the patient 05/28/2024 1:52 PM EST documented as of this encounter Care Teams Production Potter Relationship Specialty Start Date End Date Jevon Vazquez MD [address] [place] [address] #1 #1 [place] [address] PCP - General 03/23/22 documented as of this encounter
--- OUTSIDE RECORDS SUMMARY | 2025-03-09 08:09 | XMS_ITS | Encounter Summary ---
Author Organization Healthcare Address [address] [place] [address] Care Team Providers Care Chute Tender Name Role Phone Jevon Vazquez MD Primary Care Provider [phone] Encounter Details Date Type Department Care Team [...] Hematology/BMT and Cellular Therapy Program [address] [phone] 04/02/2025 11:00 AM EST Office Visit [facility] Hematology/BMT and Cellular Therapy Program [address] [address] Zonia Hoffman, EQUINE MANAGER 800 [facility] [address] [place] [phone] documented as of this encounter Visit Diagnoses Not on filedocumented in this encounter Additional Health Concerns Assessment Noted Time A fall risk assessment has been complete d for the patient 01/27/2025 3:25 PM EDT A Body Mass Index follow-up plan has been documented for the patient 05/28/2024 1:52 PM EST documented as of this encounter Care Teams Chute Tender Relationship Specialty Start Date End Date Jevon Vazquez MD [address] [place] [address] #1 #1 [place] [address] PCP - General 03/23/22 documented as of this encounter
[2025-03-09 08:12] LABS: Lactate Venous 1.9 mmol/L (0.4-2.0)
[2025-03-09 08:14] LABS: Alanine Aminotransferase 30 U/L (12-78); Albumin Level 3.4 g/dl (3.5-5.0); Albumin/Globulin Ratio 1.1 (1.1-1.8); Alkaline Phosphatase 55 U/L (38-126); Anion Gap 14.1 mEq/L (5-15); Aspartate Amino Transferase 58 U/L (14-36); Bilirubin,Total 1.6 mg/dl (0.2-1.3); Blood Urea Nitrogen 32 mg/dl (7-17); Calcium 9.6 mg/dl (8.4-10.2); Carbon Dioxide 19 mmol/L (22.0-30.0); Chloride 105 mmol/L (98-107); Creatinine Clearance Estimated 23 mL/min (50-200); Creatinine,Serum 1.90 mg/dl (0.52-1.04); Estimated Glomerular Filt Rate 26 ml/min (>60); GFR (African American) 31 ML/MIN (>60); Globulin 3.2 g/dL (1.3-3.2); Glucose 194 mg/dl (74-100); Magnesium 2.0 mg/dl (1.6-2.3); Phosphorous 3.2 mg/dl (2.5-4.5); Platelet Count 13 K/mm3 (142-424); Potassium 4.1 mmoL/L (3.5-5.1); Sodium 134 mmol/L (136-145); Total Protein,Serum 6.6 g/dl (6.3-8.2); White Blood Count 0.6 K/mm3 (4.8-10.8)
--- NOTE | 2025-03-09 08:14 | PC.NURSE ---
Dr. Leavitt notified of WBC and Platelet count.
[2025-03-09 08:15] LABS: Activated Partial Thrombo Time 37.9 seconds (22.8-30.6); INR 1.24 (0.9-1.1); Prothrombin Time 13.5 seconds (10.1-12.5)
[2025-03-09 08:15] LABS: VBG PCO2 30.9 mmol/L (35-51); VBG PH 7.43 mmol/L (7.31-7.41); VBG PO2 57.3 mmol/L (28-40)
[2025-03-09 08:16] LABS: Lactate Venous 1.9 mmol/L (0.4-2.0); VBG HCO3 20.2 mmol/L (23-30)
[2025-03-09 08:21] LABS: D-Dimer 4.86 ug/mL (0.0-0.5)
--- NOTE | 2025-03-09 08:24 | PC.NURSE ---
first set of blood cultures obtained from patient's implanted port.
[2025-03-09 08:25] LABS: Troponin I 0.02 ng/ml (0.00-0.034)
[2025-03-09] MEDS: LACTATED RINGERS 1000ML 1,000 ML 999 ML IV (08:36)
[2025-03-09 09:16] LABS: Microcytosis 1+; Ovalocytes 1+; Total Cells Counted 25
--- NOTE | 2025-03-09 09:20 | PC.NURSE ---
called to page at this time.
[2025-03-09 09:33] LABS: Fibrinogen 616 mg/dL (229.9-363.5)
--- NOTE | 2025-03-09 09:39 | PC.NURSE ---
calling [facility] at this time.
--- NOTE | 2025-03-09 09:43 | PC.NURSE ---
o/p with RUG SIZER tanya burgess at at this time.
--- NOTE | 2025-03-09 12:22 | PC.NURSE ---
called EMS at this time for transfer.
== END 2025-03-09 12:52 | disposition short-term general hospital (02) ==
PROVIDERS: Emergency Provider Student in an Organized Health Care Education/Training Program; PCP Family Medicine
DX: D61.818 Other pancytopenia (principal); G93.40 Encephalopathy, unspecified; C92.00 Acute myeloblastic leukemia, not having achieved remission; R17 Unspecified jaundice; K12.30 Oral mucositis (ulcerative), unspecified; N17.9 Acute kidney failure, unspecified; R53.1 Weakness; D65 Disseminated intravascular coagulation [defibrination syndrome]; I10 Essential (primary) hypertension
CPT/HCPCS: 71045; 80053; 82803; 83605; 83735; 84100; 84484; 85007; 85025; 85027; 85378; 85384; 85610; 85730; 86850; 87040; 93005; 96360; 99285; J7120